=== PATIENT | male | born 2000 | race Caucasian/White ===

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

== ENCOUNTER 2020-07-15 18:52 | Emergency (ER) | payer MEDICAID, SELFPAY ==
[2019-11-20 08:56] VITALS: BMI 21.9
[2020-07-15 18:54] VITALS: BP 116/77; PULSE 101; RESP 16; TEMP 36.9; O2SAT 97; BMI 22.6
--- NOTE | 2020-07-15 20:11 | ED.DCSUM_ITS ---
- ER Visit Summary Date of Service: 07/15/20 Chief Complaint: Planing of burning to his tongue after eating spicy potato chips History of Present Illness: The patient is a 19 M history of hypoenhancement diabetes and asthma. Patient states he ate 2 bags of very hot potato chips yesterday and he burned his tongue is complaining of pain. Physical Examination: Well-appearing 8-year-old no acute distress vital signs stable afebrile. H EENT exam mild irritation right side of his tongue. Neck nontender no lymphadenopathy. No trouble swallowing or breathing. Lungs clear to auscultation. Heart regular rhythm. Abdomen soft nontender. Remedies moves all 4. Test Results: None Emergency Department Course and Treatment: Irritation secondary to spicy chips. Treatment Plan: Rinse his mouth out well with plain water. Gly-Oxide [id number]-exoetgh. Disposition: Discharge Impression: Tongue irritation and pain secondary to spicy chips Strain type 1 diabetes This note was generated with [employer] dictation software. It may contain incorrect words, spelling, and punctuation that were not noted in review of the chart prior to signing ED Disposition - Plan for ED Patient: Referrals: Tori Butler MD [Primary Care Provider] -
--- NOTE | 2020-07-15 20:13 | ED.DEP ---
ED Disposition - Plan for ED Patient: Disposition: Home or Assisted Living Referrals: Tori Butler MD [Primary Care Provider] - 1 Week if not improving Additional Instructions: Wash her mouth out thoroughly next several days with plain water. Get [id number] Gly-Oxide which is a mouth rinse that will numb your tongue. Follow-up if not improving
[2020-07-15 20:28] VITALS: RESP 16
== END 2020-07-15 20:28 | disposition home or self-care (01) ==
PROVIDERS: Emergency Provider Emergency Medicine; PCP Pediatrics
DX: K14.6 Glossodynia (principal); E10.9 Type 1 diabetes mellitus without complications; J45.909 Unspecified asthma, uncomplicated; Z79.4 Long term (current) use of insulin
CPT/HCPCS: 99282

== ENCOUNTER → 2020-09-06 14:15 | Outpatient (CLI) | payer MEDICAID, SELFPAY ==
--- NOTE | 2020-09-06 14:18 | RAD_ITS ---
STUDY: X-RAY - RIGHT KNEE REASON FOR EXAM: Male, 19 years old. Right knee pain, hx of knee surg at age 11 TECHNIQUE: 4 view(s) of the knee. COMPARISON: Comparison is made with prior study dated 03/25/2017. FINDINGS: Normal visualized distal femur. Normal visualized proximal tibia and fibula. Normal proximal tibiofibular articulation. Normal medial femorotibial compartment. Normal lateral femorotibial compartment. Normal patellofemoral articulation. Small joint effusion. RAD/Knee 4 or More Views IMPRESSION: Small joint effusion. Electronically Signed: Willy Callahan, at 14:41 EDT , Service support ,
== END ==
PROVIDERS: PCP Pediatrics; Referring Provider Pediatrics; Visit Provider Pediatrics
DX: M25.561 Pain in right knee (principal)
CPT/HCPCS: 73564

== ENCOUNTER 2020-09-21 20:31 | Emergency (ER) | payer MEDICAID, SELFPAY ==
[2020-09-10 13:53] VITALS: BMI 24.6
[2020-09-21 20:34] VITALS: BP 113/65; PULSE 122; RESP 15; TEMP 36.4; O2SAT 99; BMI 24.5
--- NOTE | 2020-09-21 21:21 | EKG12_ITS ---
Test Reason : DYSRHYTHMIA Blood Pressure : / mmHG Vent. Rate : 101 BPM Atrial Rate : 101 BPM P-R Int : 124 ms QRS Dur : 090 ms QT Int : 344 ms P-R-T Axes : 047 077 038 degrees QTc Int : 446 ms Sinus tachycardia Otherwise normal ECG Confirmed by SHERMAN CASTILLO, KEVIN ([id number]), technical editor SOURAV MENDEZ ([id number]) on 09/27/2020 1:01:50 PM Referred By: CL Confirmed By:SUSY WHITAKER MD
--- NOTE | 2020-09-21 21:26 | ED.DCSUM_ITS ---
History of Present Illness Chief Complaint: Edema Informant: Patient Narrative: 19-year-old male with past medical history of type 1 diabetes presents with lower extremity swelling. States has been present over the past 2 days. Worsening today. States that he is experienced this before in the past after working at [employer]. Denies any fever, chills, shortness of breath, chest pain, nausea, vomiting, abdominal pain. has been taking his insulin as prescribed. Past Medical History - Allergies and Home Meds Allergies/Adverse Reactions: Allergies No Known Allergies Allergy (Verified 09/21/20 20:37) Primary Care Physician: Tori Butler MD [Primary Care Provider] - Prior records reviewed: Yes Past Medical History: - - DM1 Surgical History: - - Right knee surgery. Lives: With Family Smoking Status: Never smoker Alcohol: None Drugs: None - Family History Maternal Family History: Family History (Last Reviewed 09/10/20 @ 13:53 by Pattie Morgan) Other Asthma CVA (cerebral vascular accident) Diabetes Hypertension Thyroid disorder Family History: Reports: - - Patient with no market maternal or paternal family history including heart disease, diabetes, cancer. Paternal Family History: Family History (Last Reviewed 09/10/20 @ 13:53 by Pattie Morgan) Other Asthma CVA (cerebral vascular accident) Diabetes Hypertension Thyroid disorder Family History: Reports: - - Patient with no market maternal or paternal family history including heart disease, diabetes, cancer. Review of Systems General: Denies: Chills, Fever, Sweats Eyes: Denies: Visual changes - bilaterally, Diplopia ENT: Denies: Rhinorrhea, Sore throat Cardiovascular: Denies: Chest pain, Palpitations Respiratory: Denies: Dyspnea, Cough, Dyspnea on exertion Gastrointestinal: Denies: Abdominal pain, Nausea, Vomiting, Diarrhea, Melena, Hematochezia Genitourinary: Denies: Dysuria, Hematuria, Frequency Musculoskeletal: Reports: Swelling. Denies: Back pain, Extremity Pain Skin: Denies: Rash, Wounds Neurological: Denies: Headache, Weakness, Numbness Physical Exam Vital Signs/Narrative: Vital Signs Temp Pulse Resp BP Pulse Ox 09/21/20 20:34 97.6 F L 122 H 15 113/65 99 General: Well nourished, Well developed, No Acute Distress Head: Normocephalic, Atraumatic Eyes: Perrl, EOMI ENT: Moist mucous membranes, No rhinorrhea Neck: Supple, Nontender Cardiovascular: Regular rate, Regular rhythm, No murmurs Respiratory: No distress, CTA bilaterally, Chest nontender Abdomen: Soft, Nontender, Nondistended, Normal bowel sounds Back: Nontender, Normal Inspection Extremities: Nontender, - - Bilateral lower extremity edema. Skin: Normal color, No rash Neurological: Alert, Oriented x3, Cranial nerves II-XII grossly intact, Normal Strength, Normal Sensation Psychological: Normal affect, Normal Mood Diagnostic/Tx/Re-eval Chest X-Ray - ED: 1 View, Read by ED Physician, Normal Clinical Impression(s) from Imaging Studies Chest X-Ray 09/21/20 21:40 IMPRESSION: No acute cardiopulmonary process. Electronically Signed: Concepcion Barroso MD at 21:56 EST Tel , Service support , Laboratory Data 09/21/20 09/21/20 09/21/20 21:33 21:33 23:32 WBC 6.3 RBC 4.76 Hgb 14.3 Hct 38.3 L MCV 80.5 MCH 30.0 MCHC 37.3 H RDW Std Deviation 32.5 L RDW Coeff of Rabia 11.1 L Plt Count 322 MPV 9.5 Immature Gran % (Auto) 0.500 Neut % (Auto) 51.8 Lymph % (Auto) 33.3 [place] % (Auto) 10.9 H Eos % (Auto) 2.5 Baso % (Auto) 1.0 Absolute Neuts (auto) 3.3 Absolute Lymphs (auto) 2.10 Nucleated RBC % 0 Sodium 127 L Potassium 3.5 Chloride 89 L Carbon Dioxide 27.0 Anion Gap 11 BUN 17 Creatinine 1.09 Estim Creat Clear Calc 123.19 Est GFR (MDRD) Af Amer 111 Est GFR (MDRD) Non-Af 92 BUN/Creatinine Ratio 15.6 Glucose 522 H* Calcium 9.7 Total Bilirubin 1.40 H AST 34 ALT 56 Alkaline Phosphatase 92 Total Protein 7.3 Albumin 4.3 Globulin 3.0 Albumin/Globulin Ratio 1.4 POC Glucose 384 H - Rhythm Strip Rhythm Strip: Sinus Tach Rate: 101 Ectopy: None - EKG Initial EKG Interpretation: Sinus Tachycardia - Is tachycardia at 101 bpm. [place] interval of 124 ms. QTC of 446 ms. No evidence of ST elevation or depression at this time. - Medical Decision Making Appears well and nontoxic. Bilateral equal lower extremity edema. Strong palpable pulses. Well perfused. Carlos wrap was placed on the bilateral legs and patient will be advised on elevating his legs. Basic lab work was done given the patient's history of type 1 diabetes which shows a significant hyperglycemia above 500. No evidence of DKA. Patient was given 1 L of normal saline as well as 10 units of subcutaneous insulin. Patient on recheck has a blood glucose of 384. Patient is due to take more insulin when he returns home. 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 Asked to return for new or worsening symptoms. Patient agreeable and discharged home in stable condition. Impression: 1. Lower extremity edema 2. Hyperglycemia ED Disposition - Plan for ED Patient: Disposition: Home or Assisted Living Instructions: ED Peripheral Edema, Bilateral Referrals: Tori Butler MD [Primary Care Provider] - 1 Day
--- NOTE | 2020-09-21 21:40 | RAD_ITS ---
STUDY: X-RAY CHEST REASON FOR EXAM: Male, 19 years old. PT C/O BILAT LOWER EXTREMITY EDEMA. REPORTS HE WAS ON HIS FEET ALL DAY AT WORK . TECHNIQUE: Single frontal view of the chest. COMPARISON: 11/12/2019 FINDINGS: The lungs are clear and expanded. There is no demonstrated pleural abnormality. Normal size heart. Normal mediastinum and rudi. Normal visualized pulmonary arteries. Normal visualized aortic arch and descending thoracic aorta. Normal visualized thoracic spine. Normal visualized ribs, clavicles, and shoulders. There is no demonstrated abnormality of the visualized soft tissue structures of the upper abdomen. RAD/Chest 1 View (Portable) IMPRESSION: No acute cardiopulmonary process. Electronically Signed: Concepcion Barroso MD at 21:56 EST Tel , Service support ,
[2020-09-21 21:43] LABS: Absolute Neutrophil Count 3.3 X10^3/uL (2.0-7.7); Basophil# 0.06 X10^3/uL; Eosinophil# 0.16 X10^3/uL; Eosinophils% 2.5 % (0-5); Hematocrit 38.3 % (40-54); Hemoglobin 14.3 g/dL (13.0-16.5); Lymphocyte % 33.3 % (19-41); Mean Corp Hgb Conc 37.3 g/dL (32-36); Mean Corpuscular Volume 80.5 fL (80-94); Mean Platelet Vol. 9.5 fl (6.2-12.0); Monocyte# 0.69 X10^3/uL; Monocyte% 10.9 % (0-10); NRBC Flagged by Analyzer 0 % (0-5); Neutrophil # 3.27 X10^3/uL (2.7-7.7); Neutrophil % 51.8 % (47-70); Platelet Count 322 K/mm3 (150-450); RBC Distribution Width CV 11.1 % (11.6-14.6); RBC Distribution Width SD 32.5 fl (35.1-43.9); Red Blood Count 4.76 M/mm3 (4.6-6.2); White Blood Count 6.3 K/mm3 (4.4-11.0)
[2020-09-21 22:08] LABS: ALB/GLOB Ratio 1.4 RATIO (0.9-2.4); AST(SGOT) 34 U/L (15-37); Alanine Aminotransfer ALT/SGPT 56 U/L (16-61); Albumin, Serum 4.3 g/dL (3.2-5.0); Alkaline Phosphatase 92 U/L (45-117); Anion Gap 11 (5-15); BUN 17 mg/dL (7-18); BUN/Creat Ratio 15.6 RATIO (10-20); Calcium,Total 9.7 mg/dL (8.5-10.1); Chloride 89 mmol/L (98-107); Creatinine, Serum 1.09 mg/dL (0.70-1.30); EST Glomerular Filtration Rate 92 mL/min (>60); Est Glom Filt Rate - Afr Amer 111 mL/min (>60); Estimated Creatinine Clearance 123.19 ml/min; Glucose 522 mg/dL (74-106); Potassium 3.5 mmol/L (3.5-5.1); Protein, Total 7.3 g/dL (6.4-8.2); Sodium Level 127 mmol/L (136-145)
[2020-09-21] MEDS: 0.9% Normal Saline 1,000 ML 999 ML IV (22:27)
[2020-09-21] MEDS: Insulin Human 75/25 Kwickpen 10 UNIT SC (22:37)
[2020-09-21 22:59] VITALS: BP 127/57; PULSE 98; RESP 16
[2020-09-21 23:36] LABS: Bedside Glucose 384 mg/dL (70-110)
== END 2020-09-21 23:48 | disposition home or self-care (01) ==
PROVIDERS: Emergency Provider Emergency Medicine; PCP Pediatrics
DX: M79.89 Other specified soft tissue disorders (principal); E10.65 Type 1 diabetes mellitus with hyperglycemia; Z79.4 Long term (current) use of insulin
CPT/HCPCS: 71045; 80053; 82962; 85025; 93005; 99283

== ENCOUNTER 2020-10-13 09:07 | Emergency (ER) | payer MEDICAID, SELFPAY ==
[2020-10-13 09:08] VITALS: BP 127/69; PULSE 98; RESP 15; TEMP 36.3; O2SAT 100; BMI 18.4
--- NOTE | 2020-10-13 09:18 | RAD_ITS ---
STUDY: X-RAY - RIGHT KNEE REASON FOR EXAM: Male, 19 years old. Right knee gave out, pain. TECHNIQUE: 4 view(s) of the knee. COMPARISON: Comparison is made with prior study dated 09/06/2020. FINDINGS: Normal visualized distal femur. Normal visualized proximal tibia and fibula. Normal proximal tibiofibular articulation. Normal medial femorotibial compartment. Normal lateral femorotibial compartment. Normal patellofemoral articulation. Small joint effusion. RAD/Knee 4 or More Views IMPRESSION: Small joint effusion. Electronically Signed: Willy Callahan, at 10:07 EST , Service support ,
--- NOTE | 2020-10-13 09:29 | ED.VISSUMM ---
- ER Visit Summary Date of Service: 10/13/20 Chief Complaint: Right knee pain History of Present Illness: The patient is a 19 M who reports that he was at work carrying something heavy when his right knee gave out and he hit it against the fire. He did fall. He denies other injuries. Reports he showed problems with his knee in the past. Patient reports he is a sharp pain is 5-10 with walking 4-10 at rest. Is not taken anything for pain. He does not want to do this is Workmen's Compensation. Physical Examination: Vitals: Stable. Afebrile. Neck: No vertebral tenderness. Full ROM without difficulty. Cleared by NEXUS criteria. Back: No vertebral tenderness. General: A&O x 3. NAD. Cardiovascular exam: Regular rate and rhythm, no murmur, rub or gallop. Respiratory exam: Chest nontender. No crepitus. Clear to auscultation bilaterally. No wheezes or stridor. Abdominal exam: Soft, nontender, nondistended, normal bowel sounds. No pain in RUQ or LUQ specifically. No peritoneal signs. Extremity: The medial side of his right knee just distal to the joint line there is moderate tenderness palpation and erythema. There is no joint effusion. He has no pain or ligamentous instability with anterior/posterior drawer or medial/lateral stress. He is neurovascular intact distal to this. Test Results: Right knee x-ray shows no acute disease Emergency Department Course and Treatment: Patient was treated with Tylenol. He is a type I diabetic and I do not want to give him NSAIDs. Treatment Plan: Patient will be discharged with symptomatic care. Use Tylenol and ice the area. Follow-up his primary care physician 1 week if not improving. Return to the emergency department for any worsening symptoms. Disposition: To home in improved and stable condition. Impression: 1. Right knee pain, acute. This note was generated with [employer] dictation software. It may contain incorrect words, spelling, and punctuation that were not noted in review of the chart prior to signing ED Disposition - Plan for ED Patient: Instructions: ED Knee Pain of Uncertain Cause Referrals: Tori Butler MD [Primary Care Provider] - 1 Week if not improving
[2020-10-13] MEDS: Acetaminophen 500 MG Tablet 1000 MG PO (10:15)
== END 2020-10-13 10:38 | disposition home or self-care (01) ==
LOC: ED 10:32
PROVIDERS: Emergency Provider Emergency Medicine; PCP Pediatrics
DX: M25.561 Pain in right knee (principal)
CPT/HCPCS: 73564; 99283

== ENCOUNTER → 2020-10-18 09:12 | Outpatient (CLI) | payer MEDICAID, SELFPAY ==
[2020-10-18 08:37] VITALS: BMI 22.5
[2020-10-18 09:13] LABS: Bacteria 0 SEEN /hpf (None Seen); Mucous, Urine 0 SEEN /hpf (<or=2+); Red Blood Cells-Urine 0 SEEN /hpf (0-5); Squamous Epithelial Cells - UA 0 SEEN /hpf (0-5); White Blood Cells 0 SEEN /hpf (0-5)
[2020-10-18 12:25] LABS: Color, Urine Yellow (Yellow); Glucose, Dipstick 1000 mg/dl (Normal); Leukocyte Esterase-Dipstick Negative /ul (Negative); Nitrite-Dipstick Negative (Negative); Occult Blood-Urine Negative /ul (Negative); Protein-Dipstick Negative (Negative); Urine Bilirubin Dipstick Negative (Negative); Urine Clarity Clear (Clear); Urine Urobilinogen Normal (Normal)
[2020-10-18 13:12] LABS: Ketone-Dipstick 150 mg/dl (Negative)
== END ==
PROVIDERS: Visit Provider Internal Medicine Endocrinology, Diabetes & Metabolism
DX: R32 Unspecified urinary incontinence (principal)
CPT/HCPCS: 81001; 87086

== ENCOUNTER 2020-10-19 18:11 | Emergency (ER) | payer MEDICAID, SELFPAY ==
[2020-10-18 08:37] VITALS: BMI 22.5
[2020-10-19 18:11] VITALS: BP 107/82; PULSE 119; RESP 20; TEMP 35.8; BMI 22.1
--- NOTE | 2020-10-19 19:14 | EKG12_ITS ---
Test Reason : WEIGHT LOSS Blood Pressure : / mmHG Vent. Rate : 111 BPM Atrial Rate : 111 BPM P-R Int : 120 ms QRS Dur : 088 ms QT Int : 362 ms P-R-T Axes : 050 089 038 degrees QTc Int : 492 ms Sinus tachycardia Lateral infarct , age undetermined Abnormal ECG Confirmed by SHERMAN CASTILLO, KEVIN ([id number]), content editor SOURAV MENDEZ ([id number]) on 11/01/2020 8:34:40 AM Referred By: HARINDER Confirmed By:SUSY WHITAKER MD
[2020-10-19 19:16] LABS: Bedside Glucose > 500 mg/dL (70-110)
--- NOTE | 2020-10-19 19:18 | ED.VIS.GEN ---
History of Present Illness Chief Complaint: Nausea/Vomiting Informant: Patient Narrative: 10-year-old male presents with chief complaint of nausea/vomiting. He states he is lost 15 pounds this week. He states sometimes he can hold food down however he just does not have the feeling that he wants to eat. He states that his blood sugar has been running in 150s at home. He says he is a type I diabetic and does take his insulin but cannot recall the name of the insulins he uses. He is not had a fever or chills. He is not had a cough, shortness of breath, chest pain, diarrhea, constipation. He has no abdominal pain. - Past Medical History (1) Diabetes Status: Chronic (2) History of type 1 diabetes mellitus Status: Chronic (3) DKA, type 1 Status: Chronic (4) Asthma Status: Chronic (5) GERD (gastroesophageal reflux disease) Status: Chronic Past Medical History - Allergies and Home Meds Allergies/Adverse Reactions: Allergies No Known Allergies Allergy (Verified 10/19/20 20:07) Primary Care Physician: Tori Butler MD [Primary Care Provider] - Prior records reviewed: Yes Past Medical History: - - Reviewed in problem list Surgical History: noncontributory, - - Right knee surgery. Lives: Alone Smoking Status: Never smoker - Family History Maternal Family History: Family History (Last Reviewed 10/18/20 @ 09:[address] Lauro Galindo MD) Other Asthma CVA (cerebral vascular accident) Diabetes Hypertension Thyroid disorder Family History: Reports: - - Patient with no market maternal or paternal family history including heart disease, diabetes, cancer. Paternal Family History: Family History (Last Reviewed 10/18/20 @ 09:[address] Lauro Galindo MD) Other Asthma CVA (cerebral vascular accident) Diabetes Hypertension Thyroid disorder Family History: Reports: - - Patient with no market maternal or paternal family history including heart disease, diabetes, cancer. Review of Systems General: Denies: Chills, Fever, Sweats Eyes: Denies: Visual changes - bilaterally, Diplopia ENT: Denies: Rhinorrhea, Sore throat Cardiovascular: Denies: Chest pain, Palpitations Respiratory: Denies: Dyspnea, Cough, Dyspnea on exertion Gastrointestinal: Reports: Nausea, Vomiting, - - Early satiety. Denies: Abdominal pain Musculoskeletal: Denies: Myalgias, Arthralgias Skin: Denies: Rash, Abscess Neurological: Denies: Headache, Weakness, Parasthesia Physical Exam Vital Signs/Narrative: Vital Signs Temp Pulse Resp BP 10/19/20 18:11 96.4 F L 119 H 20 H 107/82 H General: Unkempt, No Acute Distress Head: Normocephalic, Atraumatic Eyes: Perrl, EOMI. Negative for: Pale conjunctiva ENT: No rhinorrhea, Dry mucous membranes. Negative for: Nasal congestion Cardiovascular: Regular rate, Tachycardia Abdomen: Soft, Nontender, Nondistended Back: Nontender, Normal Inspection Skin: Normal color, No rash. Negative for: Cyanosis, Diaphoresis Neurological: Alert, Oriented x3 Psychological: Normal affect, Normal Mood Diagnostic/Tx/Re-eval Clinical Impression(s) from Imaging Studies Chest X-Ray 10/19/20 20:40 IMPRESSION: No acute cardiopulmonary process. Electronically Signed: Concepcion Barroso MD at 21:12 EST Tel , Service support , Laboratory Data 10/19/20 10/19/20 10/19/20 19:10 19:30 19:30 WBC RBC Hgb Hct MCV MCH MCHC RDW Std Deviation RDW Coeff of Rabia Plt Count MPV Immature Gran % (Auto) Neut % (Auto) Lymph % (Auto) [place] % (Auto) Eos % (Auto) Baso % (Auto) Absolute Neuts (auto) Absolute Lymphs (auto) Nucleated RBC % Specimen Type Sample Site VBG pH VBG pO2 VBG HCO3 VBG Total CO2 VBG O2 Sat (Calc) VBG Base Excess POC Mix VBG pCO2 Pt Tmp O2 Delivery Device Sodium 128 L Potassium 3.5 Chloride 94 L Carbon Dioxide 18.0 L Anion Gap 16 H BUN 10 Creatinine 1.13 Estim Creat Clear Calc 112.88 Est GFR (MDRD) Af Amer 107 Est GFR (MDRD) Non-Af 88 BUN/Creatinine Ratio 8.8 L Glucose 672 H* Lactic Acid Calcium 8.1 L Magnesium 1.8 Total Bilirubin 1.20 H AST 26 ALT 42 Alkaline Phosphatase 88 Total Protein 6.8 Albumin 3.8 Globulin 3.0 Albumin/Globulin Ratio 1.3 Urine Color Urine Clarity Urine pH Ur Specific [place] Urine Protein Urine Glucose (UA) Urine Ketones Urine Occult Blood Urine Nitrite Urine Bilirubin Urine Urobilinogen Ur Leukocyte Esterase Urine RBC Urine WBC Ur Squamous Epith Cells Urine Bacteria Urine Mucus Acetone Level LARGE H POC Glucose > 500 H* 10/19/20 10/19/20 10/19/20 19:30 19:30 19:55 WBC 2.6 L RBC 4.56 L Hgb 14.0 Hct 37.7 L MCV 82.7 MCH 30.7 MCHC 37.1 H RDW Std Deviation 35.9 RDW Coeff of Rabia 11.9 Plt Count 262 MPV 9.8 Immature Gran % (Auto) 0.800 Neut % (Auto) 50.7 Lymph % (Auto) 31.2 [place] % (Auto) 13.8 H Eos % (Auto) 2.7 Baso % (Auto) 0.8 Absolute Neuts (auto) 1.3 L Absolute Lymphs (auto) 0.81 L Nucleated RBC % 0 Specimen Type MARILYNN Sample Site R Brach VBG pH 7.29 L VBG pO2 118 H VBG HCO3 16 L VBG Total CO2 17 L VBG O2 Sat (Calc) 98 H VBG Base Excess -10 L POC Mix VBG pCO2 Pt Tmp 33.8 L O2 Delivery Device Room Air Sodium Potassium Chloride Carbon Dioxide Anion Gap BUN Creatinine Estim Creat Clear Calc Est GFR (MDRD) Af Amer Est GFR (MDRD) Non-Af BUN/Creatinine Ratio Glucose Lactic Acid 0.6 Calcium Magnesium Total Bilirubin AST ALT Alkaline Phosphatase Total Protein Albumin Globulin Albumin/Globulin Ratio Urine Color Urine Clarity Urine pH Ur Specific [place] Urine Protein Urine Glucose (UA) Urine Ketones Urine Occult Blood Urine Nitrite Urine Bilirubin Urine Urobilinogen Ur Leukocyte Esterase Urine RBC Urine WBC Ur Squamous Epith Cells Urine Bacteria Urine Mucus Acetone Level POC Glucose 10/19/20 10/19/20 20:10 22:24 WBC RBC Hgb Hct MCV MCH MCHC RDW Std Deviation RDW Coeff of Rabia Plt Count MPV Immature Gran % (Auto) Neut % (Auto) Lymph % (Auto) [place] % (Auto) Eos % (Auto) Baso % (Auto) Absolute Neuts (auto) Absolute Lymphs (auto) Nucleated RBC % Specimen Type Sample Site VBG pH VBG pO2 VBG HCO3 VBG Total CO2 VBG O2 Sat (Calc) VBG Base Excess POC Mix VBG pCO2 Pt Tmp O2 Delivery Device Sodium Potassium Chloride Carbon Dioxide Anion Gap BUN Creatinine Estim Creat Clear Calc Est GFR (MDRD) Af Amer Est GFR (MDRD) Non-Af BUN/Creatinine Ratio Glucose Lactic Acid Calcium Magnesium Total Bilirubin AST ALT Alkaline Phosphatase Total Protein Albumin Globulin Albumin/Globulin Ratio Urine Color Yellow Urine Clarity Sl. Cloudy Urine pH 6.5 Ur Specific [place] 1.010 Urine Protein Negative Urine Glucose (UA) 1000 H Urine Ketones 150 H Urine Occult Blood Negative Urine Nitrite Negative Urine Bilirubin Negative Urine Urobilinogen Normal Ur Leukocyte Esterase Negative Urine RBC 0 SEEN Urine WBC 0 SEEN Ur Squamous Epith Cells 0-5 SEEN Urine Bacteria 0 SEEN Urine Mucus 0 SEEN Acetone Level POC Glucose 476 H* - Rhythm Strip Rhythm Strip: Sinus Rhythm Rate: 111 - EKG Initial EKG Interpretation: No Acute Injury Pattern, Sinus Tachycardia - Medical Decision Making 19-year-old male with history of type 1 diabetes and medical noncompliance presenting with weight loss and hyperglycemia. He states he lost 15 pounds this week. He has no areas of pain. Chest x-ray is read by myself and radiologist as negative for acute process. Urinalysis is negative. Patient's blood work shows that he is hyperglycemic at over 600, but his anion gap is only 1 above normal. His VBG shows that he is only slightly acidotic. Is patient was treated with Humalog in the ED. He was given 2 L of IV fluids. He is leukopenic and lymphopenic but has no symptoms of Covid?19 a respiratory illness. I discussed the findings with the patient who feels a lot better after being hydrated. We discussed giving him insulin here and he could manage his insulin at home as well. He does state that he has medication at home he has been noncompliant. He states he does not want to stay at the hospital and understands when he needs return. Impression: 1. Hyperglycemia ED Disposition - Plan for ED Patient: Disposition: Home or Assisted Living Instructions: ED Diabetic Hyperglycemia, ED Vomiting (Adult) Prescriptions: Ondansetron [Zofran Odt] 4 mg PO Q8H PRN PRN #10 tab PRN Reason: Nausea Prescription Printed Referrals: Tori Butler MD [Primary Care Provider] -
[2020-10-19] MEDS: 0.9% Normal Saline 1,000 ML 999 ML IV ×2 (19:30→21:16)
[2020-10-19 19:44] LABS: Absolute Lymphocyte Count 0.81 X10^3/uL (0.83-4.51); Absolute Neutrophil Count 1.3 X10^3/uL (2.0-7.7); Basophil# 0.02 X10^3/uL; Basophil% 0.8 % (0-1); Eosinophil# 0.07 X10^3/uL; Eosinophils% 2.7 % (0-5); Hematocrit 37.7 % (40-54); Lymphocyte # 0.81 X10^3/ul (4.0); Lymphocyte % 31.2 % (19-41); Mean Corp Hgb Conc 37.1 g/dL (32-36); Mean Corpuscular Hgb 30.7 pg (27.0-32.0); Mean Corpuscular Volume 82.7 fL (80-94); Mean Platelet Vol. 9.8 fl (6.2-12.0); Monocyte# 0.36 X10^3/uL; Monocyte% 13.8 % (0-10); NRBC Flagged by Analyzer 0 % (0-5); Neutrophil # 1.32 X10^3/uL (2.7-7.7); Neutrophil % 50.7 % (47-70); Platelet Count 262 K/mm3 (150-450); RBC Distribution Width CV 11.9 % (11.6-14.6); RBC Distribution Width SD 35.9 fl (35.1-43.9); Red Blood Count 4.56 M/mm3 (4.6-6.2); White Blood Count 2.6 K/mm3 (4.4-11.0)
[2020-10-19 20:00] LABS: Blood Gas Specimen Type VEN; O2 Delivery Device Room Air; SITE R Brach; VBG BASE EXCESS -10 mmol/L (-1.0-3.5); VBG Bicarbonate 16 mmol/L (22-26); VBG PO2 118 mmHg (25-40); VBG SO2 98 % (50-70); VBG TCO2 17 mmol/L (23-33); VBG pCO2 33.8 mmHg (41-51); VBG pH 7.29 (7.32-7.42)
[2020-10-19] MEDS: Ondansetron 4 MG/2 ML Vial IV (20:05)
[2020-10-19 20:06] VITALS: BP 124/7; PULSE 102; RESP 20; O2SAT 100
[2020-10-19 20:20] LABS: Lactic Acid 0.6 mmol/L (0.4-1.9)
--- NOTE | 2020-10-19 20:40 | RAD_ITS ---
STUDY: X-RAY CHEST REASON FOR EXAM: Male, 19 years old. weight loss, nausea, vomiting TECHNIQUE: Single frontal view of the chest. COMPARISON: 09/21/2020 FINDINGS: The lungs are clear and expanded. There is no demonstrated pleural abnormality. Normal size heart. Normal mediastinum and rudi. Normal visualized pulmonary arteries. Normal visualized aortic arch and descending thoracic aorta. Normal visualized thoracic spine. Normal visualized ribs, clavicles, and shoulders. There is no demonstrated abnormality of the visualized soft tissue structures of the upper abdomen. RAD/Chest 1 View (Portable) IMPRESSION: No acute cardiopulmonary process. Electronically Signed: Concepcion Barroso MD at 21:12 EST Tel , Service support ,
[2020-10-19 20:42] LABS: Bacteria 0 SEEN /hpf (None Seen); Mucous, Urine 0 SEEN /hpf (<or=2+); Red Blood Cells-Urine 0 SEEN /hpf (0-5); White Blood Cells 0 SEEN /hpf (0-5)
[2020-10-19 20:53] LABS: Color, Urine Yellow (Yellow); Glucose, Dipstick 1000 mg/dl (Normal); Leukocyte Esterase-Dipstick Negative /ul (Negative); Nitrite-Dipstick Negative (Negative); Occult Blood-Urine Negative /ul (Negative); Protein-Dipstick Negative (Negative); Urine Bilirubin Dipstick Negative (Negative); Urine Clarity Sl. Cloudy (Clear); Urine Urobilinogen Normal (Normal); Urine pH 6.5 (5.0 - 8.0)
[2020-10-19 21:19] VITALS: BP 112/77; PULSE 96; RESP 18; O2SAT 100
[2020-10-19 21:28] LABS: ALB/GLOB Ratio 1.3 RATIO (0.9-2.4); AST(SGOT) 26 U/L (15-37); Alanine Aminotransfer ALT/SGPT 42 U/L (16-61); Albumin, Serum 3.8 g/dL (3.2-5.0); Alkaline Phosphatase 88 U/L (45-117); Anion Gap 16 (5-15); BUN 10 mg/dL (7-18); BUN/Creat Ratio 8.8 RATIO (10-20); Calcium,Total 8.1 mg/dL (8.5-10.1); Chloride 94 mmol/L (98-107); Creatinine, Serum 1.13 mg/dL (0.70-1.30); EST Glomerular Filtration Rate 88 mL/min (>60); Est Glom Filt Rate - Afr Amer 107 mL/min (>60); Estimated Creatinine Clearance 112.88 ml/min; Glucose 672 mg/dL (74-106); Magnesium 1.8 mg/dL (1.6-2.6); Potassium 3.5 mmol/L (3.5-5.1); Protein, Total 6.8 g/dL (6.4-8.2); Sodium Level 128 mmol/L (136-145)
[2020-10-19 22:10] LABS: Ketone-Dipstick 150 mg/dl (Negative)
[2020-10-19 22:17] LABS: Squamous Epithelial Cells - UA 0-5 SEEN /hpf (0-5)
[2020-10-19 22:35] LABS: Bedside Glucose 476 mg/dL (70-110)
[2020-10-19] MEDS: Insulin Lispro 100 UNIT/ML INSULN.PEN 12 UNIT SC (23:14)
[2020-10-19 23:16] VITALS: BP 118/75; PULSE 99; RESP 20; O2SAT 98
== END 2020-10-19 23:19 | disposition home or self-care (01) ==
PROVIDERS: Emergency Provider Student in an Organized Health Care Education/Training Program; PCP Pediatrics
DX: E10.65 Type 1 diabetes mellitus with hyperglycemia (principal); J45.909 Unspecified asthma, uncomplicated; K21.9 Gastro-esophageal reflux disease without esophagitis; Z79.4 Long term (current) use of insulin
CPT/HCPCS: 71045; 80053; 81001; 82009; 82803; 82962; 83605; 83735; 85025; 87040; 93005; 96361; 96374; 99284; J7030; J2405

== ENCOUNTER 2020-10-27 06:40 | Inpatient (IN) | payer MEDICAID, SELFPAY ==
[2020-10-27] VITALS (16 sets, daily range): BP systolic 103–137; BP diastolic 56–85; PULSE 81–110; RESP 13–20; TEMP 35.9–36.8; O2SAT 97–100; BMI 21.4; BMI 21.0; BMI 21.3
[2020-10-27 06:50] LABS: Bedside Glucose 450 mg/dL (70-110)
--- NOTE | 2020-10-27 06:50 | ED.VIS.GEN ---
History of Present Illness Chief Complaint: Hyperglycemia Informant: Patient Onset: Today Narrative: Patient has a history of type 1 diabetes. He states that he started to get a headache and feel dizzy this morning which is typically a sign his blood sugars getting too high. He states that he forgot to take his insulin this morning before going to work. EMS noted the patient's blood sugar to be 385 and started IV fluids. Patient denies fever or chills. He denies cough, abdominal pain. Patient was seen in the ER a week ago for elevated blood sugar which improved after 2 L of IV fluid. Patient states he is been able to manage his blood sugars well over the past week until this morning. - Past Medical History (1) Asthma Status: Chronic (2) GERD (gastroesophageal reflux disease) Status: Chronic (3) History of type 1 diabetes mellitus Status: Chronic Past Medical History - Allergies and Home Meds Allergies/Adverse Reactions: Allergies No Known Allergies Allergy (Verified 10/27/20 06:43) Primary Care Physician: Tori Butler MD [Primary Care Provider] - Surgical History: noncontributory, - - Right knee surgery. Smoking Status: Never smoker - Family History Maternal Family History: Family History (Last Reviewed 10/18/20 @ 09:[address] Lauro Galindo MD) Other Asthma CVA (cerebral vascular accident) Diabetes Hypertension Thyroid disorder Family History: Reports: - - Patient with no market maternal or paternal family history including heart disease, diabetes, cancer. Paternal Family History: Family History (Last Reviewed 10/18/20 @ 09:[address] Lauro Galindo MD) Other Asthma CVA (cerebral vascular accident) Diabetes Hypertension Thyroid disorder Family History: Reports: - - Patient with no market maternal or paternal family history including heart disease, diabetes, cancer. Review of Systems General: Denies: Chills, Fever Eyes: Denies: Visual changes - bilaterally ENT: Denies: Bilateral ear pain Cardiovascular: Denies: Chest pain Respiratory: Denies: Dyspnea, Cough Gastrointestinal: Denies: Abdominal pain Genitourinary: Denies: Dysuria Musculoskeletal: Denies: Swelling, Extremity Pain Neurological: Reports: Headache Hematologic: Denies: Easy bruising, Easy bleeding Allergy: Denies: Uticaria Physical Exam Vital Signs/Narrative: Vital Signs Temp Pulse Resp BP Pulse Ox 10/27/20 06:41 96.6 F L 104 H 16 137/85 H 100 Inital Vital Signs reviewed: Yes General: Well nourished, Well developed Head: Normocephalic ENT: Moist mucous membranes Neck: Supple Cardiovascular: Regular rate, Regular rhythm Respiratory: No distress, CTA bilaterally Abdomen: Soft, Nontender, Normal bowel sounds Extremities: Nontender Skin: Normal color Neurological: Alert, Oriented x3 Psychological: Normal affect Diagnostic/Tx/Re-eval - Medical Decision Making Patient is ordered his normal morning insulin along with a liter of IV fluid and BMP. This will be signed out to oncoming physician for final re-eval and dispo. ED Disposition - Plan for ED Patient: Referrals: Tori Butler MD [Primary Care Provider] -
[2020-10-27] MEDS: 0.9% Normal Saline 1,000 ML 1000 ML IV ×2 (06:55→07:49)
[2020-10-27] MEDS: Insulin Lispro 100 UNIT/ML INSULN.PEN 10 UNIT SC ×2 (06:55→18:35)
--- NOTE | 2020-10-27 07:36 | EKG12_ITS ---
Test Reason : HG Blood Pressure : / mmHG Vent. Rate : 093 BPM Atrial Rate : 093 BPM P-R Int : 138 ms QRS Dur : 102 ms QT Int : 398 ms P-R-T Axes : 055 077 050 degrees QTc Int : 494 ms Normal sinus rhythm Prolonged QT Abnormal ECG Confirmed by SHERMAN CASTILLO, KEVIN ([id number]), fan mail editor AYESHA VALLE ([id number]) on 11/03/2020 10:22:28 AM Referred By: JAMES Confirmed By:SUSY WHITAKER MD
[2020-10-27 07:37] LABS: Anion Gap 22 (5-15); BUN 9 mg/dL (7-18); BUN/Creat Ratio 7.7 RATIO (10-20); Calcium,Total 7.9 mg/dL (8.5-10.1); Chloride 103 mmol/L (98-107); Creatinine, Serum 1.17 mg/dL (0.70-1.30); EST Glomerular Filtration Rate 85 mL/min (>60); Est Glom Filt Rate - Afr Amer 102 mL/min (>60); Estimated Creatinine Clearance 105.86 ml/min; Glucose 421 mg/dL (74-106); Potassium 3.7 mmol/L (3.5-5.1); Sodium Level 132 mmol/L (136-145)
[2020-10-27 07:58] LABS: Absolute Lymphocyte Count 1.39 X10^3/uL (0.83-4.51); Absolute Neutrophil Count 4.9 X10^3/uL (2.0-7.7); Basophil# 0.06 X10^3/uL; Basophil% 0.9 % (0-1); Eosinophil# 0.05 X10^3/uL; Eosinophils% 0.7 % (0-5); Hematocrit 41.9 % (40-54); Hemoglobin 14.9 g/dL (13.0-16.5); Lymphocyte # 1.39 X10^3/ul (4.0); Lymphocyte % 19.8 % (19-41); Mean Corp Hgb Conc 35.6 g/dL (32-36); Mean Corpuscular Hgb 31.3 pg (27.0-32.0); Mean Platelet Vol. 9.8 fl (6.2-12.0); Monocyte# 0.46 X10^3/uL; Monocyte% 6.5 % (0-10); NRBC Flagged by Analyzer 0 % (0-5); Neutrophil # 4.89 X10^3/uL (2.7-7.7); Neutrophil % 69.5 % (47-70); Platelet Count 381 K/mm3 (150-450); RBC Distribution Width CV 13.2 % (11.6-14.6); RBC Distribution Width SD 42.2 fl (35.1-43.9); Red Blood Count 4.76 M/mm3 (4.6-6.2)
[2020-10-27 08:44] LABS: Mucous, Urine 0 SEEN /hpf (<or=2+); Red Blood Cells-Urine 0 SEEN /hpf (0-5); Squamous Epithelial Cells - UA 0 SEEN /hpf (0-5); White Blood Cells 0 SEEN /hpf (0-5)
[2020-10-27 08:49] LABS: Color, Urine Straw (Yellow); Glucose, Dipstick 1000 mg/dl (Normal); Leukocyte Esterase-Dipstick Negative /ul (Negative); Nitrite-Dipstick Negative (Negative); Occult Blood-Urine 25 /ul (Negative); Protein-Dipstick 100 mg/dl (Negative); Urine Bilirubin Dipstick Negative (Negative); Urine Clarity Clear (Clear); Urine Urobilinogen Normal (Normal)
[2020-10-27 08:51] LABS: Ketone-Dipstick 150 mg/dl (Negative)
[2020-10-27 08:55] LABS: Bedside Glucose 294 mg/dL (70-110)
[2020-10-27 08:57] LABS: Bacteria RARE /hpf (None Seen)
--- NOTE | 2020-10-27 09:14 | NURSING ---
HOSPITALIST PAGED DR IRWIN PAGED AND RETURNED CALL
--- NOTE | 2020-10-27 09:16 | ED.VISSUMM ---
- ER Visit Summary Date of Service: 10/27/20 Chief Complaint: [] History of Present Illness: The patient is a 19 M [] Physical Examination: [] Test Results: [] Emergency Department Course and Treatment: [] Treatment Plan: [] Disposition: [] Impression: [] This note was generated with [employer]™ Interactive dictation software. It may contain incorrect words, spelling, and punctuation that were not noted in review of the chart prior to signing ED Disposition - Plan for ED Patient: Disposition: Acute Care Hospital [facility] Diagnosis: Diabetic ketoacidosis associated with type 1 diabetes mellitus Referrals: Tori Butler MD [Primary Care Provider] -
[2020-10-27 09:20] LABS: Blood Gas Specimen Type VEN; VBG BASE EXCESS -24 mmol/L (-1.0-3.5); VBG Bicarbonate 7 mmol/L (22-26); VBG PO2 114 mmHg (25-40); VBG SO2 95 % (50-70); VBG TCO2 8 mmol/L (23-33); VBG pCO2 29.2 mmHg (41-51)
--- NOTE | 2020-10-27 09:24 | CPS ---
Dr. Harper was notified about critical values on VBG.
--- NOTE | 2020-10-27 09:36 | HP.PCM_ITS ---
Problem List (1) Diabetic ketoacidosis associated with type 1 diabetes mellitus Status: Acute (2) Psychosocial problem Status: Chronic (3) Noncompliance with diabetes treatment Status: Chronic (4) Diabetes Status: Chronic Qualifiers: Diabetes mellitus type: type 1 Diabetes mellitus complication status: with hyperglycemia Qualified Code(s): E10.65 - Type 1 diabetes mellitus with hyperglycemia (5) History of type 1 diabetes mellitus Status: Chronic (6) DKA, type 1 Status: Chronic (7) RADHA (acute kidney injury) Status: Acute (8) Asthma Status: Chronic Qualifiers: Asthma severity: unspecified severity Asthma persistence: unspecified Asthma complication type: unspecified Qualified Code(s): J45.909 - Unspecified asthma, uncomplicated (9) GERD (gastroesophageal reflux disease) Status: Chronic Qualifiers: Esophagitis presence: esophagitis presence not specified Qualified Code(s): K21.9 - Gastro-esophageal reflux disease without esophagitis History of Present Illness Date of Admission: 10/27/20 Chief Complaint: Hyperglycemia The patient is a 19 year old M past medical history single for diabetes mellitus type 1 who presented to the emergency department with hyperglycemia. Patient states he had forgotten to take his medication. Blood glucose in the ED was apparently greater than 400. Subsequent evaluation did demonstrate presence of diabetic ketoacidosis. Treatment initiated in the ED with IV fluids systemic insulin and admitted to intensive care unit for further management. On further questioning patient denied any nausea no fever no chills. No abdominal pain Past Medical History Past Medical History (Chronic Problems): Chronic Problems (Last Reviewed 10/18/20 @ 09:[address] Lauro Galindo MD) Psychosocial problem (Chronic) Noncompliance with diabetes treatment (Chronic) Diabetes (Chronic) History of type 1 diabetes mellitus (Chronic) DKA, type 1 (Chronic) Asthma (Chronic) GERD (gastroesophageal reflux disease) (Chronic) Medical History: Medical History (Last Reviewed 10/27/20 @ 11:[address] Will Mason MD) femur surgery Diabetes mellitus type 1 E10.9 Allergies No Known Allergies Allergy (Verified 10/27/20 06:43) Home Medications: Ambulatory Orders Medication Instructions Recorded Albuterol Inhaler [Ventolin Hfa] 2 puff INHALATION Q4H PRN PRN 02/15/19 Fluticasone 44 Mcg [Flovent 44 Mcg] 2 puff IH BID 11/12/19 Omeprazole 20 mg DAILY 11/12/19 flash glucose scanning reader See Rx Instructions .ROUTE 09/10/20 .MEDSUPPLY #1 ea flash glucose sensor See Rx Instructions .ROUTE 09/10/20 .MEDSUPPLY #2 ea insulin glargine 100 unit/mL (3 15 unit SC DAILY #15 ml 09/10/20 mL) subcutaneous pen insulin lispro 100 unit/mL 10 unit SC TID #15 ml 09/10/20 subcutaneous pen blood sugar diagnostic See Rx Instructions .ROUTE 09/15/20 .MEDSUPPLY #100 ea Ondansetron [Zofran Odt] 4 mg PO Q8H PRN PRN #10 tab 10/19/20 Surgical History: Surgical History (Last Reviewed 10/27/20 @ 11:[address] Will Mason MD) Hx of knee surgery Z98.890 Surgical History: noncontributory, - - Right knee surgery. Psychiatric History: No pertinent psych hx Smoking Status: Never smoker - *Family History Maternal Family History: Family History (Last Reviewed 10/27/20 @ 11:[address] Will Mason MD) Other Asthma CVA (cerebral vascular accident) Diabetes Hypertension Thyroid disorder History Items: - - Patient with no market maternal or paternal family history including heart disease, diabetes, cancer. Paternal Family History: Family History (Last Reviewed 10/27/20 @ 11:[address] Will Mason MD) Other Asthma CVA (cerebral vascular accident) Diabetes Hypertension Thyroid disorder History Items: - - Patient with no market maternal or paternal family history including heart disease, diabetes, cancer. Review of Systems Constitutional: Denies: Anorexia, Chills, Fever, Night Sweats, Weight Change HEENT: Denies: Head Aches, Sinus Congestion, Sinus Drainage Cardiovascular: Denies: Chest Pain, Orthopnea, Palpitations, Paroxysmal Noc. Dyspnea Respiratory: Denies: Cough, Shortness of breath at rest, Shortness of breath upon exertion, Sputum production Gastrointestinal: Denies: Abdominal Pain, Hematemesis, Hematochezia, Nausea, Melena, Vomiting Genitourinary: Denies: Dysuria, Frequency, Hematuria, Urgency Musculoskeletal: Denies: Joint Pain, Joint Tenderness Skin: Denies: Rash Neurological: Denies: Focal weakness, Numbness, Tingling Psychiatric: Denies: Homicidal Ideations, Suicidal Ideations Hematologic/ Lymphatic: Denies: Easy Bruising, Easy Bleeding VTE Information - Inpt Only VTE Present on Admission: No VTE Mechan Device Prophylaxis: None VTE Pharm Prophylaxis ordered?: No Reason prophylaxis not ordered:: Treatment Not Indicated Patient Problems: Active and Suspected Problems (Last Reviewed 10/18/20 @ 09:[address] Lauro Galindo MD) Diabetic ketoacidosis associated with type 1 diabetes mellitus (Acute) Objective: GENERAL: cooperative HEENT: Atraumatic; dry oral mucosa EYES; Anicteric, Normal Conjunctiva NECK; supple, normal thyroid, RESPIRATORY: Diminished to auscultation CARDIOVASCULAR: Regular S1 S2, GI: soft, normoactive bowel sounds, : No Renal angle tenderness; EXTREMITIES: No edema, no clubbing, MUSCULOSKELETAL: no muscle waisting NEURO: Awake; no lateralizing signs. SKIN: No Rash PSYCH; Flat affect - Physical Exam Vitals/I&O's: Vital Signs Temp Pulse Resp BP Pulse Ox 96.6 F L 81 17 109/71 100 10/27/20 06:41 10/27/20 09:08 10/27/20 09:08 10/27/20 09:08 10/27/20 09:08 Oxygen Delivery Method Room Air Weight: 73.7 kg Body Mass Index (BMI) 21.4 Finger Stick Blood Glucose 294 Intake and Output for Last 24 Hours 10/25/20 10/26/20 10/27/20 23:59 23:59 23:59 Intake Total 1999 Balance 1999 Laboratory Results 10/27/20 06:46: POC Glucose 450 H 10/27/20 06:56: Sodium 132 L, Potassium 3.7, Chloride 103, Carbon Dioxide 7.0 L* , Anion Gap 22 H, BUN 9, Creatinine 1.17, Estim Creat Clear Calc 105.86, Est GFR (MDRD) Af Amer 102, Est GFR (MDRD) Non-Af 85, BUN/Creatinine Ratio 7.7 L, Glucose 421 H, Calcium 7.9 L 10/27/20 06:56: WBC 7.0, RBC 4.76, Hgb 14.9, Hct 41.9, MCV 88.0, MCH 31.3, MCHC 35.6, RDW Std Deviation 42.2, RDW Coeff of Rabia 13.2, Plt Count 381, MPV 9.8, Immature Gran % (Auto) 2.600 H, Neut % (Auto) 69.5, Lymph % (Auto) 19.8, [place] % (Auto) 6.5, Eos % (Auto) 0.7, Baso % (Auto) 0.9, Absolute Neuts (auto) 4.9, Absolute Lymphs (auto) 1.39, Nucleated RBC % 0 10/27/20 06:56: Acetone Level LARGE H 10/27/20 08:38: Urine Color Straw, Urine Clarity Clear, Urine pH 5.0, Ur Specific [place] 1.020, Urine Protein 100 H, Urine Glucose (UA) 1000 H, Urine Ketones 150 H, Urine Occult Blood 25 H, Urine Nitrite Negative, Urine Bilirubin Negative, Urine Urobilinogen Normal, Ur Leukocyte Esterase Negative, Urine RBC 0 SEEN, Urine WBC 0 SEEN, Ur Squamous Epith Cells 0 SEEN, Urine Bacteria RARE, Urine Mucus 0 SEEN 10/27/20 08:52: POC Glucose 294 H 10/27/20 09:13: Specimen Type MARILYNN, VBG pH 7.00 L*, VBG pO2 114 H, VBG HCO3 7 L, VBG Total CO2 8 L, VBG O2 Sat (Calc) 95 H, VBG Base Excess -24 L, POC Mix VBG pCO2 Pt Tmp 29.2 L Current Medications Insulin Human Lispro 100 unit/ (Sodium Chloride) 100 mls @ 7.37 mls/hr CONT INF .[id number] [facility]; Protocol Stop: 10/27/20 21:19 Last Admin: 10/27/20 09:04 Dose: 7.4 unit/hr, 7.4 mls/hr Documented by: Assessment/Plan All Active Problems (Last Reviewed 10/18/20 @ 09:[address] Lauro Galindo MD) Diabetic ketoacidosis associated with type 1 diabetes mellitus (Acute) RADHA (acute kidney injury) (Acute) Patient is a 19-year-old gentleman presented with hyperglycemia assessment consistent with diabetic ketoacidosis admitted to the intensive care unit for further management 1. Diabetic ketoacidosis ?Admitted to the intensive care unit treatment initiated with aggressive IV fluid resuscitation, systemic insulin, every 4 monitoring of electrolyte and correction of electrolyte abnormalities 2. Hyponatremia ?Secondary to pseudohyponatremia from hyperglycemia do expect rapid correction with improvement in patient glucose levels 3. GERD ?Patient is on PPI did continue 4. Mild intermittent asthma ?Aerosol treatments as needed 5. DVT prophylaxis low risk ?Did encourage early ambulation
--- NOTE | 2020-10-27 09:36 | NURSING ---
ICU KITTOE DIABETIC KETACIDOSIS
--- NOTE | 2020-10-27 09:49 | NURSING ---
CV ICU 204
[2020-10-27 10:13] LABS: Anion Gap 18 (5-15); BUN 9 mg/dL (7-18); BUN/Creat Ratio 8.9 RATIO (10-20); Calcium,Total 7.7 mg/dL (8.5-10.1); Chloride 109 mmol/L (98-107); Creatinine, Serum 1.01 mg/dL (0.70-1.30); EST Glomerular Filtration Rate 100 mL/min (>60); Est Glom Filt Rate - Afr Amer 121 mL/min (>60); Estimated Creatinine Clearance 122.63 ml/min; Glucose 279 mg/dL (74-106); Potassium 3.6 mmol/L (3.5-5.1); Sodium Level 136 mmol/L (136-145)
[2020-10-27 10:30] LABS: Bedside Glucose 233 mg/dL (70-110)
[2020-10-27 10:33] LABS: Osmolality, Serum 319 mOsm/KG (275-295)
[2020-10-27 11:24] LABS: AST(SGOT) 14 U/L (15-37); Alanine Aminotransfer ALT/SGPT 32 U/L (16-61); Albumin, Serum 3.6 g/dL (3.2-5.0); Alkaline Phosphatase 91 U/L (45-117); Bilirubin, Direct 0.12 mg/dL (0.00-0.30); Globulin 3.3 g/dL (2.2-4.2); Magnesium 1.8 mg/dL (1.6-2.6); Protein, Total 6.9 g/dL (6.4-8.2)
[2020-10-27] MEDS: Potassium Chloride 10mEq/100mL 10 MEQ/100 ML IV.SOLN. 100 MEQ IV BOLUS ×4 (11:58→17:10)
[2020-10-27] MEDS: 0.9% Normal Saline 1,000 ML 999 ML IV (11:58)
[2020-10-27] MEDS: 0.9% Normal Saline 1,000 ML 250 ML IV (12:31)
[2020-10-27 13:15] LABS: Anion Gap 14 (5-15); BUN 7 mg/dL (7-18); BUN/Creat Ratio 6.7 RATIO (10-20); Calcium,Total 8.2 mg/dL (8.5-10.1); Chloride 111 mmol/L (98-107); Creatinine, Serum 1.04 mg/dL (0.70-1.30); EST Glomerular Filtration Rate 97 mL/min (>60); Est Glom Filt Rate - Afr Amer 117 mL/min (>60); Estimated Creatinine Clearance 119.09 ml/min; Glucose 140 mg/dL (74-106); Potassium 3.4 mmol/L (3.5-5.1); Sodium Level 139 mmol/L (136-145)
[2020-10-27 13:45] LABS: Bedside Glucose 154 mg/dL (70-110)
[2020-10-27 14:55] LABS: Bedside Glucose 145 mg/dL (70-110)
[2020-10-27 14:55] LABS: Bedside Glucose 181 mg/dL (70-110)
[2020-10-27] MEDS: Dext 5%-0.45% NS 1,000 ML 150 ML IV (15:00)
[2020-10-27 16:45] LABS: Bedside Glucose 137 mg/dL (70-110)
--- NOTE | 2020-10-27 16:52 | NURSING ---
Per Dr Sanchez, primary physician for patient, patient is out of DKA after one BMP and gap 14. No second BMP needed per doctor, patient is being transfered to med surge unit from icu.
--- NOTE | 2020-10-27 17:08 | NURSING ---
Handoff report given to med surge nurse. Patient transferred out from [id number] to [id number] at 17:10.
[2020-10-27 18:00] LABS: Bedside Glucose 100 mg/dL (70-110)
[2020-10-27 18:15] LABS: Bedside Glucose 94 mg/dL (70-110)
[2020-10-27 18:36] LABS: Anion Gap 12 (5-15); BUN 9 mg/dL (7-18); BUN/Creat Ratio 10.1 RATIO (10-20); Calcium,Total 8.6 mg/dL (8.5-10.1); Chloride 113 mmol/L (98-107); Creatinine, Serum 0.89 mg/dL (0.70-1.30); EST Glomerular Filtration Rate 116 mL/min (>60); Est Glom Filt Rate - Afr Amer 140 mL/min (>60); Estimated Creatinine Clearance 137.84 ml/min; Glucose 115 mg/dL (74-106); Potassium 3.7 mmol/L (3.5-5.1); Sodium Level 138 mmol/L (136-145)
[2020-10-27] MEDS: Budesonide Respules 0.5 MG/2 ML AMPUL.NEB. INHALATION (19:33)
[2020-10-27] MEDS: Insulin Lispro 100 UNIT/ML INSULN.PEN SC (21:59)
[2020-10-27 22:25] LABS: Bedside Glucose 278 mg/dL (70-110)
[2020-10-27 22:38] LABS: Anion Gap 13 (5-15); BUN 10 mg/dL (7-18); BUN/Creat Ratio 10.6 RATIO (10-20); Calcium,Total 8.1 mg/dL (8.5-10.1); Chloride 109 mmol/L (98-107); Creatinine, Serum 0.94 mg/dL (0.70-1.30); EST Glomerular Filtration Rate 109 mL/min (>60); Est Glom Filt Rate - Afr Amer 131 mL/min (>60); Estimated Creatinine Clearance 130.51 ml/min; Glucose 266 mg/dL (74-106); Potassium 3.9 mmol/L (3.5-5.1); Sodium Level 135 mmol/L (136-145)
[2020-10-28 01:43] LABS: Anion Gap 12 (5-15); BUN 9 mg/dL (7-18); Calcium,Total 8.4 mg/dL (8.5-10.1); Chloride 109 mmol/L (98-107); EST Glomerular Filtration Rate 114 mL/min (>60); Est Glom Filt Rate - Afr Amer 138 mL/min (>60); Estimated Creatinine Clearance 136.31 ml/min; Glucose 203 mg/dL (74-106); Potassium 3.5 mmol/L (3.5-5.1); Sodium Level 135 mmol/L (136-145)
[2020-10-28] MEDS: Insulin Lispro 100 UNIT/ML INSULN.PEN SC ×2 (03:49→09:38)
[2020-10-28 03:51] VITALS: BP 120/65; PULSE 103; RESP 16; TEMP 37; O2SAT 98
[2020-10-28 04:01] LABS: Bedside Glucose 205 mg/dL (70-110)
--- NOTE | 2020-10-28 06:19 | PCS.PANDOC ---
PANDEMIC DOCUMENTATION INITIATED: Date: 10/27/2020 Time: 954
--- NOTE | 2020-10-28 06:45 | PCS.PANDOC ---
PANDEMIC DOCUMENTATION INITIATED: Date: 10/27/2020 Time: 6347
[2020-10-28 07:15] LABS: Absolute Lymphocyte Count 0.94 X10^3/uL (0.83-4.51); Absolute Neutrophil Count 1.2 X10^3/uL (2.0-7.7); Basophil# 0.02 X10^3/uL; Basophil% 0.8 % (0-1); Eosinophil# 0.06 X10^3/uL; Eosinophils% 2.4 % (0-5); Hematocrit 35.2 % (40-54); Hemoglobin 12.6 g/dL (13.0-16.5); Lymphocyte # 0.94 X10^3/ul (4.0); Lymphocyte % 36.9 % (19-41); Mean Corp Hgb Conc 35.8 g/dL (32-36); Mean Corpuscular Hgb 30.4 pg (27.0-32.0); Mean Corpuscular Volume 84.8 fL (80-94); Mean Platelet Vol. 9.5 fl (6.2-12.0); Monocyte# 0.27 X10^3/uL; Monocyte% 10.6 % (0-10); NRBC Flagged by Analyzer 0 % (0-5); Neutrophil # 1.21 X10^3/uL (2.7-7.7); Neutrophil % 47.3 % (47-70); Platelet Count 272 K/mm3 (150-450); RBC Distribution Width CV 13.1 % (11.6-14.6); RBC Distribution Width SD 40.3 fl (35.1-43.9); Red Blood Count 4.15 M/mm3 (4.6-6.2); White Blood Count 2.6 K/mm3 (4.4-11.0)
[2020-10-28 07:28] VITALS: PULSE 88; RESP 20; O2SAT 96
[2020-10-28] MEDS: Budesonide Respules 0.5 MG/2 ML AMPUL.NEB. INHALATION (07:28)
[2020-10-28 07:40] LABS: Bedside Glucose 212 mg/dL (70-110)
[2020-10-28 07:58] LABS: Anion Gap 12 (5-15); BUN 8 mg/dL (7-18); BUN/Creat Ratio 9.7 RATIO (10-20); Calcium,Total 8.4 mg/dL (8.5-10.1); Chloride 109 mmol/L (98-107); Creatinine, Serum 0.83 mg/dL (0.70-1.30); EST Glomerular Filtration Rate 126 mL/min (>60); Est Glom Filt Rate - Afr Amer 152 mL/min (>60); Glucose 211 mg/dL (74-106); Potassium 3.5 mmol/L (3.5-5.1); Sodium Level 135 mmol/L (136-145)
--- NOTE | 2020-10-28 08:10 | DCINST_ITS ---
- Discharge Diagnoses Current Active Problems: Current Active and Chronic Problems (Last Reviewed 10/27/20 @ 11:[address] Will Mason MD) Diabetic ketoacidosis associated with type 1 diabetes mellitus (Acute) Psychosocial problem (Chronic) Noncompliance with diabetes treatment (Chronic) Diabetes (Chronic) History of type 1 diabetes mellitus (Chronic) DKA, type 1 (Chronic) RADHA (acute kidney injury) (Acute) Asthma (Chronic) GERD (gastroesophageal reflux disease) (Chronic) You will use the following diet at home:: Calorie/Carbohydrate Controlled (specify 1200, 1400, etc) - 1800 Your food should be the consistency of: Regular Discharge Activity: Return to Normal Activity Allergies/Adverse Reactions: Allergies No Known Allergies Allergy (Verified 10/27/20 06:43) Medications to take at Discharge Albuterol Inhaler [Ventolin Hfa] 2 puff INHALATION Q4H PRN PRN 02/15/19 Fluticasone 44 Mcg [Flovent 44 Mcg] 2 puff IH BID 11/12/19 Omeprazole 20 mg DAILY 11/12/19 flash glucose scanning reader See Rx Instructions .ROUTE .MEDSUPPLY #1 ea 09/10/20 flash glucose sensor See Rx Instructions .ROUTE .MEDSUPPLY #2 ea 09/10/20 insulin lispro 100 unit/mL subcutaneous pen 10 unit SC TID #15 ml 09/10/20 blood sugar diagnostic See Rx Instructions .ROUTE .MEDSUPPLY #100 ea 09/15/20 Ondansetron [Zofran Odt] 4 mg PO Q8H PRN PRN #10 tab 10/19/20 Insulin Glargine,Hum.rec.anlog [Lantus Solostar] 10 unit SC BIDCM #15 ml 10/28/20 Potassium Chloride [K-Dur] 20 meq PO BIDCM #60 tab 10/28/20 The following prescriptions were given: Potassium Chloride [K-Dur] 20 meq PO BIDCM #60 tab Transmission Status: Received by [id number] Primary Care Physician: Tori Butler MD [Primary Care Provider] - Please follow up with your Primary Care Physician in: in 1 week Test Results: Test results from this visit will be discussed in further detail at your follow- up appointment, if applicable. Please Follow Up With: Lauro Galindo MD When: in 2 weeks Proposed Discharge Date: 10/28/20
--- NOTE | 2020-10-28 08:43 | DS.PCM_ITS ---
Discharge Date and Diagnosis - Problem List Patient Problems: Active and Suspected Problems (Last Reviewed 10/27/20 @ 11:[address] Will Masno MD) Diabetic ketoacidosis associated with type 1 diabetes mellitus (Acute) RADHA (acute kidney injury) (Acute) Date of Admission: 10/27/20 Date of Discharge: 10/28/20 - Primary Discharge Diagnosis Acute Problems: Active Problems (Last Reviewed 10/27/20 @ 11:[address] Will Mason MD) Diabetic ketoacidosis associated with type 1 diabetes mellitus (Acute) RADHA (acute kidney injury) (Acute) - Secondary Discharge Diagnosis Chronic Problems: Chronic Problems (Last Reviewed 10/27/20 @ 11:[address] Will Mason MD) Psychosocial problem (Chronic) Noncompliance with diabetes treatment (Chronic) Diabetes (Chronic) History of type 1 diabetes mellitus (Chronic) DKA, type 1 (Chronic) Asthma (Chronic) GERD (gastroesophageal reflux disease) (Chronic) Hospital Course and Treatment Summary of Care Provided: Patient is a 19-year-old gentleman presented with hyperglycemia assessment consistent with diabetic ketoacidosis admitted to the intensive care unit for further management 1. Diabetic ketoacidosis ?Admitted to the intensive care unit treatment initiated with aggressive IV fluid resuscitation, systemic insulin, every 4 monitoring of electrolyte and correction of electrolyte abnormalities -10/28/2018 patient DKA resolved discharge home with adjustments in his insulin regimen 2. Hyponatremia ?Secondary to pseudohyponatremia from hyperglycemia do expect rapid correction with improvement in patient glucose levels 3. GERD ?Patient is on PPI did continue 4. Mild intermittent asthma ?Aerosol treatments as needed 5. DVT prophylaxis low risk ?Did encourage early ambulation Patient Problems: Active and Suspected Problems (Last Reviewed 10/27/20 @ 11:[address] Will Mason MD) Diabetic ketoacidosis associated with type 1 diabetes mellitus (Acute) RADHA (acute kidney injury) (Acute) - Physical Exam Vitals/I&O's: Vital Signs Temp Pulse Resp BP Pulse Ox 98.6 F 88 20 H 120/65 96 10/28/20 03:51 10/28/20 07:28 10/28/20 07:28 10/28/20 03:51 10/28/20 07:28 Oxygen Delivery Method Room Air Weight: 72.8 kg Body Mass Index (BMI) 21.3 Finger Stick Blood Glucose 137 Intake and Output for Last 24 Hours 10/26/20 10/27/20 10/28/20 23:59 23:59 23:59 Intake Total 5576.37 / 5576.37 339.58 / 339.58 Output Total 0 / 0 Balance 5576.37 / 5576.37 339.58 / 339.58 General: Alert HEENT: Atraumatic Cardiovascular: Regular rate, Regular Rhythm Psych/Mental Status: Normal Affect Laboratory Results 10/27/20 06:56: Serum Osmolality 319 H 10/27/20 08:38: Urine Color Straw, Urine Clarity Clear, Urine pH 5.0, Ur Specific [place] 1.020, Urine Protein 100 H, Urine Glucose (UA) 1000 H, Urine Ketones 150 H, Urine Occult Blood 25 H, Urine Nitrite Negative, Urine Bilirubin Negative, Urine Urobilinogen Normal, Ur Leukocyte Esterase Negative, Urine RBC 0 SEEN, Urine WBC 0 SEEN, Ur Squamous Epith Cells 0 SEEN, Urine Bacteria RARE, Urine Mucus 0 SEEN 10/27/20 08:52: POC Glucose 294 H 10/27/20 09:13: Specimen Type MARILYNN, VBG pH 7.00 L*, VBG pO2 114 H, VBG HCO3 7 L, VBG Total CO2 8 L, VBG O2 Sat (Calc) 95 H, VBG Base Excess -24 L, POC Mix VBG pCO2 Pt Tmp 29.2 L 10/27/20 09:40: Sodium 136, Potassium 3.6, Chloride 109 H, Carbon Dioxide 9.0 L* , Anion Gap 18 H, BUN 9, Creatinine 1.01, Estim Creat Clear Calc 122.63, Est GFR (MDRD) Af Amer 121, Est GFR (MDRD) Non-Af 100, BUN/Creatinine Ratio 8.9 L, Glucose 279 H, Calcium 7.7 L 10/27/20 09:40: Magnesium 1.8, Total Bilirubin 0.60, Direct Bilirubin 0.12, AST 14 L, ALT 32, Alkaline Phosphatase 91, Total Protein 6.9, Albumin 3.6, Globulin 3.3 10/27/20 10:23: POC Glucose 233 H 10/27/20 11:33: POC Glucose 181 H 10/27/20 12:25: Sodium 139, Potassium 3.4 L, Chloride 111 H, Carbon Dioxide 14.0 L, Anion Gap 14, BUN 7, Creatinine 1.04, Estim Creat Clear Calc 119.09, Est GFR (MDRD) Af Amer 117, Est GFR (MDRD) Non-Af 97, BUN/Creatinine Ratio 6.7 L, Glucose 140 H, Calcium 8.2 L 10/27/20 12:25: POC Glucose 145 H 10/27/20 13:37: POC Glucose 154 H 10/27/20 14:42: POC Glucose 137 H 10/27/20 16:31: POC Glucose 94 10/27/20 17:52: POC Glucose 100 10/27/20 18:03: Sodium 138, Potassium 3.7, Chloride 113 H, Carbon Dioxide 13.0 L , Anion Gap 12, BUN 9, Creatinine 0.89, Estim Creat Clear Calc 137.84, Est GFR (MDRD) Af Amer 140, Est GFR (MDRD) Non-Af 116, BUN/Creatinine Ratio 10.1, Glucose 115 H, Calcium 8.6 10/27/20 21:58: Sodium 135 L, Potassium 3.9, Chloride 109 H, Carbon Dioxide 13.0 L, Anion Gap 13, BUN 10, Creatinine 0.94, Estim Creat Clear Calc 130.51, Est GFR (MDRD) Af Amer 131, Est GFR (MDRD) Non-Af 109, BUN/Creatinine Ratio 10.6, Glucose 266 H, Calcium 8.1 L 10/27/20 21:58: POC Glucose 278 H 10/28/20 01:25: Sodium 135 L, Potassium 3.5, Chloride 109 H, Carbon Dioxide 14.0 L, Anion Gap 12, BUN 9, Creatinine 0.90, Estim Creat Clear Calc 136.31, Est GFR (MDRD) Af Amer 138, Est GFR (MDRD) Non-Af 114, BUN/Creatinine Ratio 10.0, Glucose 203 H, Calcium 8.4 L 10/28/20 03:48: POC Glucose 205 H 10/28/20 06:10: WBC 2.6 L, RBC 4.15 L, Hgb 12.6 L, Hct 35.2 L, MCV 84.8, MCH 30.4, MCHC 35.8, RDW Std Deviation 40.3, RDW Coeff of Rabia 13.1, Plt Count 272, MPV 9.5, Immature Gran % (Auto) 2.000 H, Neut % (Auto) 47.3, Lymph % (Auto) 36.9, [place] % (Auto) 10.6 H, Eos % (Auto) 2.4, Baso % (Auto) 0.8, Absolute Neuts (auto) 1.2 L, Absolute Lymphs (auto) 0.94, Nucleated RBC % 0 10/28/20 06:10: Sodium 135 L, Potassium 3.5, Chloride 109 H, Carbon Dioxide 14.0 L, Anion Gap 12, BUN 8, Creatinine 0.83, Estim Creat Clear Calc 147.40, Est GFR (MDRD) Af Amer 152, Est GFR (MDRD) Non-Af 126, BUN/Creatinine Ratio 9.7 L, Glucose 211 H, Calcium 8.4 L 10/28/20 07:32: POC Glucose 212 H Current Medications Acetaminophen (Acetaminophen 325 Mg Tablet) 650 mg PO Q6H PRN PRN PRN Reason: Pain Score 1-10/Temp > 100.7 F Albuterol Sulfate (Albuterol 2.5 Mg/3 Ml Vial.Neb.) 2.5 mg INHALATION Q2H PRN PRN PRN Reason: SOB/Wheezing Budesonide (Budesonide Respules 0.5 Mg/2 Ml Ampul.Neb.) 0.5 mg INHALATION Q12H.RT [facility] Last Admin: 10/28/20 07:28 Dose: 0.5 mg Documented by: Dextrose (Dextrose 50%-Water 25 Gm/50 Ml Disp.Syrin) 0 gm IV X1 PRN; Protocol PRN Reason: Hypoglycemia Glucagon (Glucagon 1 Mg/Ml Syringe) 1 mg IM .X1 PRN PRN Reason: Hypoglycemia Potassium Chloride/Sodium Chloride (Kcl 20meq In 0.45% Ns 1000ml) 1,000 mls @ 125 mls/hr IV .Q8H [facility] Last Admin: 10/28/20 01:19 Dose: 125 mls/hr Documented by: Pantoprazole Sodium 40 mg/ (Sodium Chloride) 110 mls @ 330 mls/hr IV Q24 [facility] Last Infusion: 10/27/20 15:20 Dose: Infused Documented by: Insulin Glargine (Insulin Glargine 100 Units/Ml Pen) 10 units SC [facility] Insulin Glargine (Insulin Glargine 100 Units/Ml Pen) 10 units SC [facility] Last Admin: 10/27/20 18:34 Dose: 10 units Documented by: Insulin Human Lispro (Insulin Lispro 100 Unit/Ml Insuln.Pen) 10 unit SC LUNCH [facility]ILLY Insulin Human Lispro (Insulin Lispro 100 Unit/Ml Insuln.Pen) 10 unit SC [facility] Last Admin: 10/27/20 18:35 Dose: 10 units Documented by: Insulin Human Lispro (Insulin Lispro 100 Unit/Ml Insuln.Pen) 10 unit SC [facility] Insulin Human Lispro (Insulin Lispro 100 Unit/Ml Insuln.Pen) 0 unit SC ACHS & 3AM LILLY; Protocol Last Admin: 10/28/20 03:49 Dose: 4 u Documented by: Melatonin (Melatonin 3 Mg Tablet) 3 mg PO QHS PRN PRN PRN Reason: INSOMNIA Morphine Sulfate (Morphine 2 Mg/Ml Syringe) 2 mg IV Q3H PRN PRN PRN Reason: Pain Score 6-10 Ondansetron HCl (Ondansetron 4 Mg/2 Ml Vial) 4 mg IV Q8H PRN PRN PRN Reason: NAUSEA/VOMITING Oxycodone HCl (Oxycodone 5 Mg Tablet) 5 mg PO Q4H PRN PRN PRN Reason: Pain Score 4-5 Potassium Chloride (Potassium Chloride 20 Meq Tablet) 20 meq PO BIDCM [facility] Last Admin: 10/27/20 18:34 Dose: 20 meq Documented by: Prochlorperazine Edisylate (Prochlorperazine 10 Mg/2 Ml Vial) 5 mg IV Q4H PRN PRN PRN Reason: Breakthrough Nausea/Vomiting Senna/Docusate Sodium (Senna/Docusate Sodium 1 Tablet) 2 tablet PO BID PRN PRN Reason: Constipation Sodium Chloride (0.9% Saline Lock 10 Ml Syringe) 10 - 40 ml IV UD PRN PRN Reason: SALINE FLUSH Throat Lozenges (Benzocaine/Menthol 1 Lozenge) 1 lozenge MUCOUS MEM Q2H PRN PRN PRN Reason: SORE THROAT Discharge Diet: 1800 Calorie Control Diet Discharge Activity: Return to Normal Activity Home Medications: Medications to take at Discharge Albuterol Inhaler [Ventolin Hfa] 2 puff INHALATION Q4H PRN PRN 02/15/19 Fluticasone 44 Mcg [Flovent 44 Mcg] 2 puff IH BID 11/12/19 Omeprazole 20 mg DAILY 11/12/19 flash glucose scanning reader See Rx Instructions .ROUTE .MEDSUPPLY #1 ea 09/10/20 flash glucose sensor See Rx Instructions .ROUTE .MEDSUPPLY #2 ea 09/10/20 insulin lispro 100 unit/mL subcutaneous pen 10 unit SC TID #15 ml 09/10/20 blood sugar diagnostic See Rx Instructions .ROUTE .MEDSUPPLY #100 ea 09/15/20 Ondansetron [Zofran Odt] 4 mg PO Q8H PRN PRN #10 tab 10/19/20 Insulin Glargine,Hum.rec.anlog [Lantus Solostar] 10 unit SC BIDCM #15 ml 10/28/20 Potassium Chloride [K-Dur] 20 meq PO BIDCM #60 tab 10/28/20 Following Prescriptions Were Given to Patient: Potassium Chloride [K-Dur] 20 meq PO BIDCM #60 tab Transmission Status: Received by [facility] Primary Care Physician: Tori Butler MD [Primary Care Provider] - Please follow up with your Primary Care Physician in: in 1 week Please Follow Up With: Lauro Galindo MD When: in 2 weeks Disposition: Home Minutes spent on discharge:: 35 Patient Condition:: Stable Medical Necessity - Tobacco Use Smoking Status: Never smoker Meaningful Use Info Meaningful Use Diagnoses (Choose all that apply): None applicable Inpatient E&M: 66853 Disch Hosp
[2020-10-28] MEDS: Insulin Lispro 100 UNIT/ML INSULN.PEN 10 UNIT SC (09:38)
[2020-10-28 09:45] VITALS: BP 110/63; PULSE 87; RESP 18; TEMP 36.6; O2SAT 100
--- NOTE | 2020-10-28 09:53 | CASEMGMT ---
Social Work Assessment SW reviewed chart. Pt with diagnosis of psychosocial problem. Personal Status: SW met with pt to complete assessment. SW introduced self and role at [facility]. Pt is alert and orientated x3. Living Arrangements: Pt states that he lives with family (grandma, grandpa, mom, little brother). ADLs: Pt states he is independent with ADLs. PCP: Dr. Tori Butler Specialists: Pt states he is still seeing Dr. King Salinas Pharmacy: [facility] DME: Pt states he has the equipment needed to monitor his diabetes Substance Abuse Hx: Pt denied Mental Health Hx: Pt denied Pt states he knows how to check his diabetes, states no concerns with checking. Pt denied any financial concerns, pt states he is able to access basic needs (water, food, housing). Pt states no concerns at this time. Pt denied additional needs or concerns. 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
[2020-10-28 10:18] LABS: Anion Gap 14 (5-15); BUN 7 mg/dL (7-18); BUN/Creat Ratio 8.6 RATIO (10-20); Calcium,Total 8.4 mg/dL (8.5-10.1); Chloride 105 mmol/L (98-107); Creatinine, Serum 0.81 mg/dL (0.70-1.30); EST Glomerular Filtration Rate 129 mL/min (>60); Est Glom Filt Rate - Afr Amer 156 mL/min (>60); Estimated Creatinine Clearance 151.04 ml/min; Glucose 280 mg/dL (74-106); Potassium 3.7 mmol/L (3.5-5.1); Sodium Level 135 mmol/L (136-145)
[2020-10-28 11:40] VITALS: BP 110/63; PULSE 87; RESP 100; TEMP 36.6
--- NOTE | 2020-10-29 14:07 | CASEMGMT ---
VERONA FONTANEZ Discharge Follow-up Phone Call: MELVIN: Vira Strata: 3 Call Date: 10/29/2020 Discharge Date: 10/28/2020 Time of Call: 1405 Duration: 1 min Admitting Diagnosis: DKA VERONA FONTANEZ attempted to complete follow-up phone call after recent hospitalization. No answer, voice message left with return contact information.
== END 2020-10-28 11:42 | disposition home or self-care (01) | DRG 420 ==
LOC: ED 09:17 → ICU 09:51 → MS3 17:25
PROVIDERS: Emergency Medicine; Admitting Provider Internal Medicine; Emergency Provider Emergency Medicine; PCP Pediatrics; Visit Provider Internal Medicine
DX: E10.10 Type 1 diabetes mellitus with ketoacidosis without coma (principal); Z91.19 Patient's noncompliance with other medical treatment and regimen; K21.9 Gastro-esophageal reflux disease without esophagitis; J45.20 Mild intermittent asthma, uncomplicated; E87.1 Hypo-osmolality and hyponatremia; Z65.9 Problem related to unspecified psychosocial circumstances
CPT/HCPCS: 36415; 80048; 80076; 81001; 82009; 82803; 82962; 83735; 83930; 85025; 93005; 94640; 96360; 96361; 96372; 97110; 99218; 99285; J7030; A4216; G0378; J7799

== ENCOUNTER 2020-11-30 15:00 | Outpatient (RCR) | payer MEDICAID, SELFPAY ==
--- NOTE | 2020-10-15 08:33 | HP.PTEVAL_ITS ---
Patient's Visit Information SHIRA STEPHENSON is a 19 year old M referred to Physical Therapy by Dr. Tori Butler MD with a diagnosis of R knee pain. Date of Evaluation: 10/15/20 Physical Therapist: Yung Bishop, PT, ATC - Visit Plan Frequency: 2-3x /Week Duration: 4-6 Weeks Plan: R LE strengthening and stretching, balance and proprio, core strengthening, bike, and HEP - Subjective Pt reports his R knee has been sore for about a week. Pt reports he had to have surgery in 6th grade secondary to a fracture of the R distal femur while suffering a fall while playing basketball. Pt reports his knee had been doing well until it started to swell and give out on him for the past week. Pt notes he has fallen twice in the past week because his knee is giving out. L knee locks up on him occasionally. Pt reports he has had xrays in R knee which he was told the only finding was fluid in his R knee. Pt is type 1 diabetic. Pt reports prolonged standing or walking increases his pain. Pt notes he is not able to run secondary to pain. No tingling or numbness in R LE. No sleep difficulty secondary to pain. No stairs at home. 0/10 pain at rest, 5/10 pain at worst (at work trying to lift boxes). Pt is an employee at [employer]. - Pain R knee Pain Intensity (Out of 10): 0 Pain Intensity Range: 5 - Objective Neuro: B LE sensation is WNL to light touch. B patellar reflex= 1/3. Palpation: Pt is very sore along the medial border of the R patella. No obvious deformity present this date. Girth at joint line: L knee 38 cm, R knee 40 cm. MMT: L knee is 5/5 throughout. R knee is 3/5 throughout and painful with all testing. ROM: L knee 0-130 degrees, R knee 0-120 degrees. Special testing: Positive McConnels sign for patellofemoral pain - Goals Goal 1:: Decrease R knee pain x 50% to aid with standing tolerance Goal Time Frame: 4-6 Weeks Goal 2:: Increase R knee ROM x 10 degrees to aid with increasing tolerance for work requirements Goal Time Frame: 4-6 Weeks Goal 3:: Increase R knee strength x 1 grade to aid with tolerance for ambulation Goal Time Frame: 4-6 Weeks Goal 4:: I with HEP Goal Time Frame: 4-6 Weeks - Rehabilitation Potential Physical Therapy Diagnosis: Pt has R knee pain, weakness, and limited ROM secondary to patello-femoral syndrome of R knee Rehabilitation Potential: Good - Anticipated Interventions Patient/Client Instruction: Educate patient on: Condition, Plan of Care For the Purpose of:: To improve self management Therapeutic Exercise to Include: Strength training, Endurance training, Balance training, Flexibilty training, Dynamic Lumbar Stabilization For the Purpose of:: To decrease pain, To increase ROM, To improve muscle performance and motor function Cryotherapy (ice pack, ice massage): Yes For the Purpose of:: To decrease pain Thank you for the opportunity to evaluate your patient. For Medicare and Medicare HMO plans, please review the plan of care and approve it. It will need to be FAXED BACK to us at [phone] for Medicare purposes. For Medicare only, by signing this I certify the plan of care. Please let me know if there are questions or concerns regarding this plan of care. Physician Signature: Date:
--- NOTE | 2020-12-22 09:01 | HP.PT.NRP ---
SHIRA STEPHENSON was seen in my office for initial evaluation on 10/15/20. The following Plan of Care was established for this patient: Initial Frequency: 2-3x /Week Initial Duration: 4-6 Weeks Patient/Client Instruction: Educate patient on: Condition, Plan of Care For the Purpose of:: To improve self management Therapeutic Exercise to Include: Strength training, Endurance training, Balance training, Flexibilty training, Dynamic Lumbar Stabilization For the Purpose of:: To decrease pain, To increase ROM, To improve muscle performance and motor function Cryotherapy (ice pack, ice massage): Yes For the Purpose of:: To decrease pain This patient was last seen in our office . Pertinent comments regarding their Physical therapy will appear below: Pt was treated for 6 PT visits for R knee pain through the date of 11/30/20. Pt did not show up for his remaining 5 visits through today, and is discontinued at this time. At this point I will be discontinuing this patient from physical therapy. I would be happy to see this patient again in the future if found appropriate by the physician. Thank you! Yung Bishop, PT, ATC
== END 2020-11-30 19:00 | disposition home or self-care (01) ==
LOC: PT 15:00
PROVIDERS: PCP Pediatrics; Referring Provider Pediatrics; Visit Provider Pediatrics
DX: M25.561 Pain in right knee (principal); M25.361 Other instability, right knee; G89.29 Other chronic pain
CPT/HCPCS: 97110; 97161

== ENCOUNTER 2020-12-05 19:18 | Emergency (ER) | payer MEDICAID, SELFPAY ==
[2020-10-27 09:55] VITALS: BMI 21.3
[2020-12-05 19:18] VITALS: BP 114/81; PULSE 109; RESP 15; TEMP 36.4; O2SAT 100; BMI 23.3
--- NOTE | 2020-12-05 21:31 | ED.VIS.GEN ---
History of Present Illness Chief Complaint: Wound Check Informant: Patient Onset: Days Context: Gradual Onset Narrative: Patient is a 19-year-old male with history of type 1 diabetes mellitus presenting with a wound to his left thigh. States is been present for about a week. It started out as look like a small pimple. He stated it was draining a small amount of pus from it today. He also states that seem like the scab in the center came off and it continued to bleed. Patient denies any associated fever or chills. He states the redness has gotten worse as well over the week. Is not changing rapidly. He denies any other complaints at this time. He denies any history of MRSA or staph infections. Patient states his blood sugars have been normal for him. They have been running between 120 and 140. He thinks his last A1c was less than 7. Past Medical History - Allergies and Home Meds Allergies/Adverse Reactions: Allergies No Known Allergies Allergy (Verified 12/05/20 19:20) Primary Care Physician: Tori Butler MD [Primary Care Provider] - Past Medical History: - - Insulin dependent diabetes mellitus Surgical History: noncontributory, - - Right knee surgery. Smoking Status: Never smoker - Family History Maternal Family History: Family History (Last Reviewed 10/27/20 @ 11:[address] Will Mason MD) Other Asthma CVA (cerebral vascular accident) Diabetes Hypertension Thyroid disorder Family History: Reports: - - Patient with no market maternal or paternal family history including heart disease, diabetes, cancer. Paternal Family History: Family History (Last Reviewed 10/27/20 @ 11:[address] Will Mason MD) Other Asthma CVA (cerebral vascular accident) Diabetes Hypertension Thyroid disorder Family History: Reports: - - Patient with no market maternal or paternal family history including heart disease, diabetes, cancer. Review of Systems General: Denies: Chills, Fever, Sweats Eyes: Denies: Visual changes - bilaterally, Diplopia ENT: Denies: Rhinorrhea, Sore throat Cardiovascular: Denies: Chest pain, Palpitations Respiratory: Denies: Dyspnea, Cough, Dyspnea on exertion Gastrointestinal: Denies: Abdominal pain, Nausea, Vomiting, Diarrhea, Melena, Hematochezia Genitourinary: Denies: Dysuria, Hematuria, Frequency Musculoskeletal: Reports: Extremity Pain - left thigh . Denies: Back pain Skin: Reports: Wounds - left thigh. Denies: Rash Neurological: Denies: Headache, Weakness, Numbness Physical Exam Vital Signs/Narrative: Vital Signs Temp Pulse Resp BP Pulse Ox 12/05/20 19:18 97.6 F L 109 H 15 114/81 H 100 Inital Vital Signs reviewed: Yes General: Well nourished, Well developed, No Acute Distress Head: Normocephalic, Atraumatic Eyes: Perrl, EOMI ENT: Moist mucous membranes, No rhinorrhea Neck: Supple, Nontender Cardiovascular: Regular rate, Regular rhythm, No murmurs Respiratory: No distress, CTA bilaterally, Chest nontender Abdomen: Soft, Nontender, Nondistended, Normal bowel sounds Back: Nontender, Normal Inspection Extremities: Nontender, No edema Skin: No rash, - - Or centimeter by 5 cm area of erythema with associated warmth and some mild induration. The central area is slightly ulcerated and has a central draining area that is bleeding. Is mildly tender to palpation. Neurological: Alert, Oriented x3, Cranial nerves II-XII grossly intact, Normal Strength, Normal Sensation Psychological: Normal affect, Normal Mood Diagnostic/Tx/Re-eval - Medical Decision Making Patient is evaluated for wound on his left thigh. Is concerning for abscess versus cellulitis. I did ultrasound the area myself which does show area of fluid collection so an I&D is performed. See procedure note. Patient will be covered with Bactrim and Keflex and given close follow-up as he is at increased risk of delayed wound healing as he is diabetic. He is otherwise well-appearing and I do not think lab work or further imaging is indicated at this time. He is given return precautions. Patient is counseled on signs and symptoms requiring return to the emergency room. Patient verbalizes agreement and understand this plan. Patient discharged home in stable and improved condition. Procedures Procedure(s): Incision and drainage. Informed consent obtained. Area anesthetized with 1% lidocaine with epinephrine. A 1 cm stab incision made over the area of maximum fluctuance. Bloody drainage is obtained however no purulence is appreciated. It is explored with hemostats to break up any potential loculations. It is left open to heal by secondary intent and continue to drain. ED Disposition - Plan for ED Patient: Disposition: Home or Assisted Living Diagnosis: Cellulitis of left thigh, Abscess of left thigh Instructions: ED Abscess Incision And Drainage, ED Cellulitis Prescriptions: Smz/Tmp Ds [Bactrim Ds] 1 tab PO BID #14 tab Transmission Status: Received by [facility] Cephalexin [Keflex] 500 mg PO Q6 #40 cap Transmission Status: Received by [facility] Referrals: Tori Butler MD [Primary Care Provider] - Additional Instructions: Apply warm compresses to the area. Please follow-up with your primary care doctor this week for wound check.
[2020-12-05] MEDS: Lidocaine 1% (20 ml mdv) 20 ML Vial INFILT (21:56)
[2020-12-05] MEDS: Smz/Tmp Ds Tablet 1 TABLET PO (21:56)
[2020-12-05] MEDS: Cephalexin 250 MG Capsule 500 MG PO (21:56)
[2020-12-05 21:57] VITALS: BP 132/74; PULSE 99; RESP 15; O2SAT 97
== END 2020-12-05 21:58 | disposition home or self-care (01) ==
PROVIDERS: Emergency Provider Emergency Medicine; PCP Pediatrics
DX: L03.116 Cellulitis of left lower limb (principal); L02.416 Cutaneous abscess of left lower limb; E10.9 Type 1 diabetes mellitus without complications; Z79.4 Long term (current) use of insulin
CPT/HCPCS: 10060; 99284

== ENCOUNTER 2020-12-09 15:39 | Inpatient (IN) | payer MEDICAID, SELFPAY ==
[2020-12-09] VITALS (15 sets, daily range): BP systolic 104–133; BP diastolic 67–94; PULSE 94–112; RESP 13–22; TEMP 35.6–36.6; O2SAT 98–100; BMI 21.1; BMI 21.0
--- NOTE | 2020-12-09 16:02 | ED.DCSUM_ITS ---
- ER Visit Summary Date of Service: 12/09/20 Chief Complaint: Hyperglycemia History of Present Illness: The patient is a 19 M presenting with elevated blood sugar. Patient was seen by his primary care physician today and sent into the ED for blood sugar of 600. He is an insulin-dependent diabetic. States the last time he checked his blood sugar at work this morning it was 110. He has a wound to his left thigh that he is currently on Bactrim and Keflex after I&D was performed in the ED on 12/05. He denies fever. He complains of mild shortness of breath. Denies other complaints. Physical Examination: Vitals are stable. Patient is afebrile. Alert no acute distress. HEENT exam dry mucous membranes Neck is supple. Lungs are clear and equal bilaterally. Heart is regular tachycardic Abdomen is soft nontender nondistended. Extremities 5X 3 cm left thigh wound with surrounding erythema no areas of fluctuance Skin is warm and dry. No focal neurologic deficit. Remainder of exam is unremarkable. Emergency Department Course and Treatment: Patient was given IV fluids. CBC shows white count 11.6, platelet 502. Chemistries show sodium 116, CO2 9, anion gap 23, glucose 1000, creatinine 1.53. Total bili 1.1, alk phos 154. Urine shows ketones, 0 white cells, 0 red blood cells. Lactic acid 3.3. Acetone moderate. Covid negative. Blood cultures are pending. Chest x-ray read by myself and radiology shows no acute process. Patient was given vancomycin IV and started on insulin drip. Discussed with hospitalist for admission. Disposition: Admission Impression: DKA, left thigh cellulitis This note was generated with [employer]beat dictation software. It may contain incorrect words, spelling, and punctuation that were not noted in review of the chart prior to signing ED Disposition - Plan for ED Patient: Referrals: Tori Butler MD [Primary Care Provider] -
[2020-12-09 16:13] LABS: Bacteria 0 SEEN /hpf (None Seen); Mucous, Urine 0 SEEN /hpf (<or=2+); Red Blood Cells-Urine 0 SEEN /hpf (0-5); Squamous Epithelial Cells - UA 0 SEEN /hpf (0-5); White Blood Cells 0 SEEN /hpf (0-5)
[2020-12-09 16:15] LABS: Color, Urine Straw (Yellow); Glucose, Dipstick 1000 mg/dl (Normal); Leukocyte Esterase-Dipstick Negative /ul (Negative); Nitrite-Dipstick Negative (Negative); Occult Blood-Urine 10 /ul (Negative); Protein-Dipstick 15 mg/dl (Negative); Specific Gravity, Urine 1.015 (1.002-1.030); Urine Bilirubin Dipstick Negative (Negative); Urine Clarity Clear (Clear); Urine Urobilinogen Normal (Normal)
--- NOTE | 2020-12-09 16:33 | RAD_ITS ---
STUDY: X-RAY CHEST REASON FOR EXAM: Male, 19 years old. HYPERGLYCEMIA. TECHNIQUE: AP portable COMPARISON: 10/19/2020 FINDINGS: The lungs are clear and expanded. There is no demonstrated pleural abnormality. Normal size heart. Normal mediastinum and rudi. Normal visualized pulmonary arteries. Normal visualized aortic arch and descending thoracic aorta. Normal visualized thoracic spine. Normal visualized ribs, clavicles, and shoulders. There is no demonstrated abnormality of the visualized soft tissue structures of the upper abdomen. No significant change since prior exam RAD/Chest 1 View (Portable) IMPRESSION: Normal x-ray examination of the chest. Electronically Signed: Jef Rogers MD at 16:43 EST , Service support ,
[2020-12-09] MEDS: 0.9% Normal Saline 1,000 ML 1000 ML IV (16:39)
[2020-12-09 16:51] LABS: Absolute Neutrophil Count 9.8 X10^3/uL (2.0-7.7); Basophil# 0.08 X10^3/uL; Basophil% 0.7 % (0-1); Hemoglobin 16.4 g/dL (13.0-16.5); Mean Corp Hgb Conc 34.2 g/dL (32-36); Mean Corpuscular Hgb 29.5 pg (27.0-32.0); Mean Corpuscular Volume 86.3 fL (80-94); Mean Platelet Vol. 9.9 fl (6.2-12.0); Monocyte# 0.76 X10^3/uL; Monocyte% 6.5 % (0-10); NRBC Flagged by Analyzer 0 % (0-5); Neutrophil # 9.81 X10^3/uL (2.7-7.7); Neutrophil % 84.4 % (47-70); Platelet Count 502 K/mm3 (150-450); Red Blood Count 5.56 M/mm3 (4.6-6.2); White Blood Count 11.6 K/mm3 (4.4-11.0)
[2020-12-09 17:09] LABS: Ketone-Dipstick 150 mg/dl (Negative)
[2020-12-09 17:11] LABS: AST(SGOT) 11 U/L (15-37); Alanine Aminotransfer ALT/SGPT 25 U/L (16-61); Albumin, Serum 4.7 g/dL (3.2-5.0); Alkaline Phosphatase 154 U/L (45-117); Anion Gap 23 (5-15); BUN 15 mg/dL (7-18); BUN/Creat Ratio 9.8 RATIO (10-20); Calcium,Total 9.2 mg/dL (8.5-10.1); Chloride 84 mmol/L (98-107); Creatinine, Serum 1.53 mg/dL (0.70-1.30); EST Glomerular Filtration Rate 62 mL/min (>60); Est Glom Filt Rate - Afr Amer 75 mL/min (>60); Estimated Creatinine Clearance 79.72 ml/min; Globulin 4.7 g/dL (2.2-4.2); Glucose 1000 mg/dL (74-106); Potassium 4.5 mmol/L (3.5-5.1); Protein, Total 9.4 g/dL (6.4-8.2); Sodium Level 116 mmol/L (136-145)
[2020-12-09 17:20] LABS: Lactic Acid 3.3 mmol/L (0.4-1.9)
[2020-12-09] MEDS: 0.9% Normal Saline 1,000 ML 999 ML IV (17:59)
[2020-12-09] MEDS: Vancomycin IV 1,000 MG/200 ML BAG 200 MG IV (18:42)
--- NOTE | 2020-12-09 18:54 | ED.RN ---
report called to Tatiana in ICU
--- NOTE | 2020-12-09 18:56 | HP.PCM_ITS ---
History of Present Illness Date of Admission: 12/09/20 Chief Complaint: Left lower extremity leg wound and hyperglycemia The patient is a 19 year old M with a PMH as below who presents to the hospital after seeing his PCP today. He was seen in the ER 4 days ago for left lower extremity abscess which was drained unfortunately no culture was obtained at that time. He was discharged on Keflex and Bactrim. However his PCP saw him today and felt that it looked a little bit worse but also noticed on routine labs that his blood sugar was over 600. Because of the left lower extremity cellulitis and blood sugar over 600 his PCP sent him in. In the ER he was found to be hyponatremic with 116 with a CO2 of 9 and a blood sugar over thousand with an elevated lactic acid. He has received 1 L bolus in the ER. And started on insulin drip. He feels better so far being here in the ER, and has no current complaints to me. Past Medical History Past Medical History (Chronic Problems): Chronic Problems (Last Reviewed 10/27/20 @ 11:[address] Will Mason MD) Psychosocial problem (Chronic) Noncompliance with diabetes treatment (Chronic) Diabetes (Chronic) History of type 1 diabetes mellitus (Chronic) DKA, type 1 (Chronic) Asthma (Chronic) GERD (gastroesophageal reflux disease) (Chronic) Medical History: Medical History (Last Reviewed 10/27/20 @ 11:[address] Will Mason MD) femur surgery Diabetes mellitus type 1 E10.9 Allergies No Known Allergies Allergy (Verified 12/09/20 15:40) Home Medications: Ambulatory Orders Medication Instructions Recorded Albuterol Inhaler [Ventolin Hfa] 2 puff INHALATION Q4H PRN PRN 02/15/19 Fluticasone 44 Mcg [Flovent 44 Mcg] 2 puff IH BID 11/12/19 Ondansetron [Zofran Odt] 4 mg PO Q8H PRN PRN #10 tab 10/19/20 Insulin Glargine [Lantus SoloStar 15 units SQ QHS 12/05/20 Pen] Cephalexin [Keflex] 500 mg PO Q6 12/09/20 Insulin Lispro [Humalog Kwikpen] 10 unit SC TID 12/09/20 Omeprazole [Prilosec] 20 mg PO DAILY PRN PRN 12/09/20 Potassium Chloride [K-Dur] 20 meq PO BIDCM 12/09/20 Smz/Tmp Ds [Bactrim Ds] 1 tab PO BID 12/09/20 Surgical History: Surgical History (Last Reviewed 10/27/20 @ 11:[address] Will Mason MD) Hx of knee surgery Z98.890 Surgical History: noncontributory, - - Right knee surgery. Psychiatric History: No pertinent psych hx Smoking Status: Never smoker Tobacco Use: Non-smoker Alcohol: None Drugs: None - *Family History Maternal Family History: Family History (Last Reviewed 10/27/20 @ 11:[address] Will Mason MD) Other Asthma CVA (cerebral vascular accident) Diabetes Hypertension Thyroid disorder History Items: - - Patient with no market maternal or paternal family history including heart disease, diabetes, cancer. Paternal Family History: Family History (Last Reviewed 10/27/20 @ 11:[address] Will Mason MD) Other Asthma CVA (cerebral vascular accident) Diabetes Hypertension Thyroid disorder History Items: - - Patient with no market maternal or paternal family history including heart disease, diabetes, cancer. Review of Systems Constitutional: Denies: Chills, Fever, Weight Change HEENT: Denies: Head Aches, Sinus Congestion, Sinus Drainage Cardiovascular: Denies: Chest Pain, Palpitations Respiratory: Denies: Cough, Shortness of breath at rest, Sputum production Gastrointestinal: Denies: Abdominal Pain, Nausea, Vomiting Genitourinary: Denies: Dysuria Musculoskeletal: Denies: Joint Pain, Joint Tenderness Skin: Reports: Wounds - Left thigh wound. Denies: Rash Neurological: Denies: Numbness, Tingling, Focal weakness Psychiatric: Denies: Anxiety, Depression Hematologic/ Lymphatic: Denies: Easy Bruising, Easy Bleeding VTE Information - Inpt Only VTE Present on Admission: No - Physical Exam Vitals/I&O's: Vital Signs Temp Pulse Resp BP Pulse Ox 98 F 94 20 H 124/94 H 100 12/09/20 18:00 12/09/20 18:00 12/09/20 18:00 12/09/20 18:00 12/09/20 18:00 Oxygen Delivery Method Room Air Weight: 160 lb Body Mass Index (BMI) 21.1 Finger Stick Blood Glucose 137 Intake and Output for Last 24 Hours 0112/08/20 12/09/20 23:59 23:59 23:59 Intake Total 1000 / 1000 Output Total 3000 / 3000 Balance -1999 General: Alert, Oriented x3, Cooperative, No apparent distress HEENT: Atraumatic, PERRLA, EOMI, Normocephalic Oral: Dry Mucosa Neck: Supple, No JVD Lungs: Clear to auscultation, Normal air movement, No rhonchi, No wheeze, No rales Cardiovascular: Regular rate, Regular Rhythm, Normal S1, Normal S2, No murmurs Abdomen: Soft, Non Tender, Non-Distended, No Hepato-splenomegaly Extremities: No edema, Capillary Refill Less than 3 Seconds Skin: No rashes, No breakdown, Ulcer/ Wound - Left posterior thigh a 5 to 6cm purplish area with a 1 cm incision in the middle. No active drainage some surrounding redness with extensive induration Neurological: Neuro grossly intact, Sensory exam intact to light touch and pain Psych/Mental Status: Normal Affect, Appropriate Microbiology Past 72 Hours 12/09/20 16:13 Mucosa - Nose SARS-CoV-2 Antigen (Rapid) - Final Laboratory Results 12/09/20 16:00: Urine Color Straw, Urine Clarity Clear, Urine pH 5.0, Ur Specific [place] 1.015, Urine Protein 15 H, Urine Glucose (UA) 1000 H, Urine Ketones 150 H, Urine Occult Blood 10 H, Urine Nitrite Negative, Urine Bilirubin Negative, Urine Urobilinogen Normal, Ur Leukocyte Esterase Negative, Urine RBC 0 SEEN, Urine WBC 0 SEEN, Ur Squamous Epith Cells 0 SEEN, Urine Bacteria 0 SEEN, Urine Mucus 0 SEEN 12/09/20 16:19: WBC 11.6 H, RBC 5.56, Hgb 16.4, Hct 48.0, MCV 86.3, MCH 29.5, MCHC 34.2, RDW Std Deviation 38.0, RDW Coeff of Rabia 12.0, Plt Count 502 H, MPV 9.9, Immature Gran % (Auto) 2.400 H, Neut % (Auto) 84.4 H, Lymph % (Auto) 6.0 L, [place] % (Auto) 6.5, Eos % (Auto) 0.0, Baso % (Auto) 0.7, Absolute Neuts (auto) 9.8 H, Absolute Lymphs (auto) 0.70 L, Nucleated RBC % 0 12/09/20 16:19: Sodium 116 L*, Potassium 4.5, Chloride 84 L, Carbon Dioxide 9.0 L*, Anion Gap 23 H, BUN 15, Creatinine 1.53 H, Estim Creat Clear Calc 79.72, Est GFR (MDRD) Af Amer 75, Est GFR (MDRD) Non-Af 62, BUN/Creatinine Ratio 9.8 L, Glucose 1000 H*, Calcium 9.2, Total Bilirubin 1.10 H, AST 11 L, ALT 25, Alkaline Phosphatase 154 H, Total Protein 9.4 H, Albumin 4.7, Globulin 4.7 H, Albumin/Globulin Ratio 1.0 12/09/20 16:19: Lactic Acid 3.3 H* 12/09/20 16:19: Acetone Level MODERATE H Current Medications Dextrose (Dextrose 50%-Water 25 Gm/50 Ml Disp.Syrin) 0 gm IV X1 PRN; Protocol PRN Reason: Hypoglycemia Protocol Insulin Human Lispro 100 unit/ (Sodium Chloride) 100 mls @ 7.258 mls/hr CONT INF .[id number] LILLY; Protocol Stop: 12/10/20 07:16 Last Admin: 12/09/20 18:01 Dose: 7.3 mls/hr Documented by: Vancomycin HCl (Vancomycin) 1,000 mg in 200 mls @ 200 mls/hr IV X1 ONE Stop: 12/09/20 18:59 Last Admin: 12/09/20 18:42 Dose: 200 mls/hr Documented by: Sodium Chloride (0.9% Saline Lock 10 Ml Syringe) 10 - 40 ml IV UD PRN PRN Reason: SALINE FLUSH Assessment/Plan All Active Problems (Last Reviewed 10/27/20 @ 11:[address] Will Mason MD) Diabetic ketoacidosis associated with type 1 diabetes mellitus (Acute) RADHA (acute kidney injury) (Acute) 1. Type 1 diabetes in DKA likely instigated from left thigh abscess with cellulitis/pseudohyponatremia -There is no culture data, will try to get 1 now and transition to IV vancomycin -With DKA protocol including IV fluids, BMP monitoring and insulin drip -Consult the dietitian for education -We'll have the wound care nurse to evaluate his wound, depending on how it looks in the next day or 2 he may need further debridement 2. GERD -Stable -Tinea with PPI DVT: Low risk Inpatient E&M: [id number] Init Hosp L2
[2020-12-09 19:26] LABS: Bedside Glucose > 500 mg/dL (70-110)
[2020-12-09 19:26] LABS: Bedside Glucose > 500 mg/dL (70-110)
--- NOTE | 2020-12-09 19:41 | PCS.PANDOC ---
PANDEMIC DOCUMENTATION INITIATED: Date: 12/09/20 Time: 1924
[2020-12-09] MEDS: 0.9% Normal Saline 1,000 ML 500 ML IV (19:54)
[2020-12-09 20:32] LABS: Reflex Lactate? Y
[2020-12-09 20:33] LABS: Anion Gap 17 (5-15); BUN 13 mg/dL (7-18); BUN/Creat Ratio 11.8 RATIO (10-20); Calcium,Total 8.5 mg/dL (8.5-10.1); Chloride 101 mmol/L (98-107); EST Glomerular Filtration Rate 91 mL/min (>60); Est Glom Filt Rate - Afr Amer 110 mL/min (>60); Estimated Creatinine Clearance 110.46 ml/min; Glucose 464 mg/dL (74-106); Potassium 3.3 mmol/L (3.5-5.1); Sodium Level 130 mmol/L (136-145)
[2020-12-09 20:46] LABS: Magnesium 1.7 mg/dL (1.6-2.6); Phosphorus 2.3 mg/dL (2.5-4.9)
[2020-12-09] MEDS: Potassium Chloride 10mEq/100mL 10 MEQ/100 ML IV.SOLN. 100 MEQ IV BOLUS ×2 (21:22→22:40)
[2020-12-09] MEDS: 0.9% Normal Saline 1,000 ML 150 ML IV (21:24)
[2020-12-09 22:05] LABS: Bedside Glucose 499 mg/dL (70-110)
[2020-12-09 22:05] LABS: Bedside Glucose 406 mg/dL (70-110)
[2020-12-09 23:42] LABS: Anion Gap 11 (5-15); BUN 12 mg/dL (7-18); BUN/Creat Ratio 12.6 RATIO (10-20); Calcium,Total 8.5 mg/dL (8.5-10.1); Chloride 106 mmol/L (98-107); Creatinine, Serum 0.95 mg/dL (0.70-1.30); EST Glomerular Filtration Rate 107 mL/min (>60); Est Glom Filt Rate - Afr Amer 130 mL/min (>60); Glucose 263 mg/dL (74-106); Potassium 3.5 mmol/L (3.5-5.1); Sodium Level 133 mmol/L (136-145)
[2020-12-10] VITALS (17 sets, daily range): BP systolic 99–132; BP diastolic 49–80; PULSE 94–118; RESP 12–18; TEMP 36.4–37.8; O2SAT 97–100; BMI 21.0
--- NOTE | 2020-12-10 | ABS_PTH ---
PATIENT: SHIRA STEPHENSON LOC: MS3 U#:[id number] AGE/SX: 19/M [place] [facility] [place]: Dr. Dean Jiménez MD : 2000 BED: 1 DIS: 12/13/2020 SPEC #: [id number] RECD: 12/13/20 07:40 STATUS: KENIA REQ #: [id number] HONG: 12/10/20 00:[address]: Ciera Laura DEPT: SURGICAL PATHOLOGY RECD BY: Nahum Siu ENTERED: 12/13/20 10:59 SP TYPE: Abscess OTHR DR: MD Dr. Ciera Ceron MD Dr. Nicholas F Kotsonis, MD Tissues: Leg, NOS Procedures: Special Stain Group I Surgery Specimen Level IV GMS Stain (control) Comments: @ Ordering doctor for SUIII edited from to DR.LWANG Kee GALO at 12/13/20 1322 @ Submitting doctor edited from to DR.LWANG Sweet by CLOVER at 12/13/202 HEADER OPERATION: Incision and drainage, abscess PRE-OP DIAGNOSIS: Type 1 diabetes in DKA likely instigated from left thigh abscess with cellulitis/ pseudohyponatremia TISSUE SUBMITTED: Subcutaneous tissue left leg MICROSCOPIC DIAGNOSIS Skin and soft tissue of left leg, excision: Ulceration with associated acute and chronic inflammation and abscess formation. Positive for fungal hyphae. See comment. AM:yefri 12/14/2020 COMMENT Abundant fungal hyphae are present in areas of abscess. Clinical correlation is suggested. GMS stain with matched control was used in the evaluation of this case. MICROSCOPIC DESCRIPTION Slides are reviewed. GROSS DESCRIPTION Received in fixative is one container labeled with the patient's name and designated subcutaneous tissue left leg. The specimen consists of multiple irregular fragments of light to dark maldonado soft tissue ranging in size from 0.8 to 4 cm in greatest dimension. Serial sections do not reveal mass lesions. Director Social Service sections are submitted in two cassettes. / AM:yefri 12/13/20 TC:2 CPT: 12845, 27449
[2020-12-10] MEDS: Potassium Chloride 10mEq/100mL 10 MEQ/100 ML IV.SOLN. 100 MEQ IV BOLUS ×2 (00:02→01:04)
[2020-12-10 00:06] LABS: Bedside Glucose 273 mg/dL (70-110)
[2020-12-10 00:06] LABS: Bedside Glucose 377 mg/dL (70-110)
[2020-12-10] MEDS: Dext 5%-0.45% NS 1,000 ML 150 ML IV (01:10)
[2020-12-10 01:11] LABS: Bedside Glucose 259 mg/dL (70-110)
[2020-12-10 01:11] LABS: Bedside Glucose 231 mg/dL (70-110)
[2020-12-10 03:16] LABS: Bedside Glucose 244 mg/dL (70-110)
[2020-12-10 03:20] LABS: Absolute Lymphocyte Count 0.83 X10^3/uL (0.83-4.51); Absolute Neutrophil Count 5.2 X10^3/uL (2.0-7.7); Basophil# 0.03 X10^3/uL; Basophil% 0.4 % (0-1); Eosinophils% 1.4 % (0-5); Hematocrit 34.1 % (40-54); Hemoglobin 12.6 g/dL (13.0-16.5); Lymphocyte # 0.83 X10^3/ul (4.0); Lymphocyte % 11.8 % (19-41); Mean Corpuscular Hgb 30.5 pg (27.0-32.0); Mean Corpuscular Volume 82.6 fL (80-94); Mean Platelet Vol. 8.9 fl (6.2-12.0); Monocyte# 0.82 X10^3/uL; Monocyte% 11.6 % (0-10); NRBC Flagged by Analyzer 0 % (0-5); Neutrophil # 5.17 X10^3/uL (2.7-7.7); Neutrophil % 73.2 % (47-70); Platelet Count 312 K/mm3 (150-450); RBC Distribution Width CV 11.9 % (11.6-14.6); RBC Distribution Width SD 35.2 fl (35.1-43.9); Red Blood Count 4.13 M/mm3 (4.6-6.2); White Blood Count 7.1 K/mm3 (4.4-11.0)
[2020-12-10 03:35] LABS: Anion Gap 9 (5-15); BUN 9 mg/dL (7-18); Calcium,Total 7.7 mg/dL (8.5-10.1); Chloride 108 mmol/L (98-107); EST Glomerular Filtration Rate 114 mL/min (>60); Est Glom Filt Rate - Afr Amer 138 mL/min (>60); Glucose 205 mg/dL (74-106); Potassium 3.3 mmol/L (3.5-5.1); Sodium Level 134 mmol/L (136-145)
[2020-12-10] MEDS: 0.9% Normal Saline 1,000 ML 125 ML IV ×2 (04:28→14:54)
[2020-12-10] MEDS: Cephalexin 500 MG Capsule PO (04:50)
[2020-12-10] MEDS: Acetaminophen 325 MG Tablet 650 MG PO (05:02)
--- NOTE | 2020-12-10 07:18 | PN_ITS ---
Reason for Visit: Left thigh abscess Diabetic ketoacidosis Subjective: Patient is a 19-year-old gentleman sent to the ED with hyperglycemia with glucose greater than 600. Patient was also found to have left thigh abscess. His initial assessment consistent with diabetic ketoacidosis admitted to intensive care unit for further management Objective: GENERAL: cooperative HEENT: Atraumatic; EYES; Anicteric, Normal Conjunctiva NECK; supple, normal thyroid, RESPIRATORY: Diminished to auscultation CARDIOVASCULAR: Regular S1 S2, GI: soft, normoactive bowel sounds, : No Renal angle tenderness; EXTREMITIES: Area of induration involving the posterior aspect of the left consistent with abscess MUSCULOSKELETAL: no muscle waisting NEURO: Awake; no lateralizing signs. SKIN: No Rash PSYCH; Flat affect Vitals/I&O's: Vital Signs Temp Pulse Resp BP Pulse Ox 98.1 F 109 H 18 124/71 H 100 12/10/20 05:05 12/10/20 05:05 12/10/20 05:05 12/10/20 05:05 12/10/20 05:05 Oxygen Delivery Method Room Air Weight: 71.9 kg Body Mass Index (BMI) 21.0 Finger Stick Blood Glucose 161 Intake and Output for Last 24 Hours 12/08/20 12/09/20 12/10/20 23:59 23:59 23:59 Intake Total 3419.76 / 3421.26 1522.0 / 1522.0 Output Total 4775 / 4775 1400 / 1400 Balance -1355.24 / -1353.74 122.0 / 122.0 Microbiology Past 72 Hours 12/09/20 16:13 Mucosa - Nose SARS-CoV-2 Antigen (Rapid) - Final Laboratory Results 12/09/20 16:00: Urine Color Straw, Urine Clarity Clear, Urine pH 5.0, Ur Specific [place] 1.015, Urine Protein 15 H, Urine Glucose (UA) 1000 H, Urine Ketones 150 H, Urine Occult Blood 10 H, Urine Nitrite Negative, Urine Bilirubin Negative, Urine Urobilinogen Normal, Ur Leukocyte Esterase Negative, Urine RBC 0 SEEN, Urine WBC 0 SEEN, Ur Squamous Epith Cells 0 SEEN, Urine Bacteria 0 SEEN, Urine Mucus 0 SEEN 12/09/20 16:19: WBC 11.6 H, RBC 5.56, Hgb 16.4, Hct 48.0, MCV 86.3, MCH 29.5, MCHC 34.2, RDW Std Deviation 38.0, RDW Coeff of Rabia 12.0, Plt Count 502 H, MPV 9.9, Immature Gran % (Auto) 2.400 H, Neut % (Auto) 84.4 H, Lymph % (Auto) 6.0 L, [place] % (Auto) 6.5, Eos % (Auto) 0.0, Baso % (Auto) 0.7, Absolute Neuts (auto) 9.8 H, Absolute Lymphs (auto) 0.70 L, Nucleated RBC % 0 12/09/20 16:19: Sodium 116 L*, Potassium 4.5, Chloride 84 L, Carbon Dioxide 9.0 L*, Anion Gap 23 H, BUN 15, Creatinine 1.53 H, Estim Creat Clear Calc 79.72, Est GFR (MDRD) Af Amer 75, Est GFR (MDRD) Non-Af 62, BUN/Creatinine Ratio 9.8 L, Glucose 1000 H*, Calcium 9.2, Total Bilirubin 1.10 H, AST 11 L, ALT 25, Alkaline Phosphatase 154 H, Total Protein 9.4 H, Albumin 4.7, Globulin 4.7 H, Albumin/Globulin Ratio 1.0 12/09/20 16:19: Lactic Acid 3.3 H* 12/09/20 16:19: Acetone Level MODERATE H 12/09/20 18:06: POC Glucose > 500 H* 12/09/20 19:02: POC Glucose > 500 H* 12/09/20 19:40: Sodium 130 L, Potassium 3.3 L, Chloride 101, Carbon Dioxide 12.0 L, Anion Gap 17 H, BUN 13, Creatinine 1.10, Estim Creat Clear Calc 110.46, Est GFR (MDRD) Af Amer 110, Est GFR (MDRD) Non-Af 91, BUN/Creatinine Ratio 11.8, Glucose 464 H*, Calcium 8.5 12/09/20 19:40: Phosphorus 2.3 L, Magnesium 1.7 12/09/20 20:01: POC Glucose 499 H* 12/09/20 20:40: Lactic Acid 2.0 12/09/20 21:00: POC Glucose 406 H 12/09/20 22:04: POC Glucose 377 H 12/09/20 23:05: POC Glucose 273 H 12/09/20 23:15: Sodium 133 L, Potassium 3.5, Chloride 106, Carbon Dioxide 16.0 L , Anion Gap 11, BUN 12, Creatinine 0.95, Estim Creat Clear Calc 127.90, Est GFR (MDRD) Af Amer 130, Est GFR (MDRD) Non-Af 107, BUN/Creatinine Ratio 12.6, Glucose 263 H, Calcium 8.5 12/10/20 00:06: POC Glucose 259 H 12/10/20 01:02: POC Glucose 231 H 12/10/20 01:54: POC Glucose 244 H 12/10/20 03:10: Sodium 134 L, Potassium 3.3 L, Chloride 108 H, Carbon Dioxide 17.0 L, Anion Gap 9, BUN 9, Creatinine 0.90, Estim Creat Clear Calc 135.00, Est GFR (MDRD) Af Amer 138, Est GFR (MDRD) Non-Af 114, BUN/Creatinine Ratio 10.0, Glucose 205 H, Calcium 7.7 L 12/10/20 03:10: WBC 7.1, RBC 4.13 L, Hgb 12.6 L, Hct 34.1 L, MCV 82.6, MCH 30.5, MCHC 37.0 H D, RDW Std Deviation 35.2, RDW Coeff of Rabia 11.9, Plt Count 312, MPV 8.9, Immature Gran % (Auto) 1.600 H, Neut % (Auto) 73.2 H, Lymph % (Auto) 11.8 L , [place] % (Auto) 11.6 H, Eos % (Auto) 1.4, Baso % (Auto) 0.4, Absolute Neuts (auto) 5.2, Absolute Lymphs (auto) 0.83, Nucleated RBC % 0 Current Medications Acetaminophen (Acetaminophen 325 Mg Tablet) 650 mg PO Q6H PRN PRN PRN Reason: Pain Score 1-10/Temp > 100.7 F Last Admin: 12/10/20 05:02 Dose: 650 mg Documented by: Albuterol Sulfate (Albuterol 2.5 Mg/3 Ml Vial.Neb.) 2.5 mg INHALATION Q4H PRN PRN PRN Reason: WHEEZING Budesonide (Budesonide Respules 0.5 Mg/2 Ml Ampul.Neb.) 0.5 mg INHALATION Q12H.RT LILLY Cephalexin (Cephalexin 500 Mg Capsule) 500 mg PO Q6 [facility] Last Admin: 12/10/20 04:50 Dose: 500 mg Documented by: Dextrose (Dextrose 50%-Water 25 Gm/50 Ml Disp.Syrin) 0 gm IV X1 PRN; Protocol PRN Reason: hYPOGLYCEMIA Sodium Chloride () 1,000 mls @ 125 mls/hr IV .Q8H LILLY Stop: 12/10/20 12:28 Last Admin: 12/10/20 04:28 Dose: 125 mls/hr Documented by: Insulin Glargine (Insulin Glargine 100 Units/Ml Pen) 15 units SC QHS LILLY Last Admin: 12/10/20 04:54 Dose: 15 u Documented by: Insulin Human Lispro (Insulin Lispro 100 Unit/Ml Insuln.Pen) 10 unit SC 0800,1200,1700 [facility] Insulin Human Lispro (Insulin Lispro 100 Unit/Ml Insuln.Pen) 0 unit SC ACHS LILLY; Protocol Melatonin (Melatonin 3 Mg Tablet) 3 mg PO QHS PRN PRN PRN Reason: INSOMNIA Ondansetron HCl (Ondansetron 4 Mg/2 Ml Vial) 4 mg IV Q8H PRN PRN PRN Reason: NAUSEA/VOMITING Pantoprazole Sodium (Pantoprazole Sodium 20 Mg Tablet) 20 mg PO DAILY [facility] Potassium Chloride (Potassium Chloride 20 Meq Tablet) 20 meq PO BIDCM [facility] Trimethoprim/Sulfamethoxazole (Smz/Tmp Ds Tablet) 1 tablet PO BIDCM [facility] STROKE Vital Signs/Narrative: Vital Signs Temp Pulse Resp BP BP Pulse Ox 12/10/20 05:05 98.1 F 109 H 18 124/71 H 100 12/10/20 04:00 97.6 F L 117 H 12 115/66 100 12/10/20 03:23 116 H Medical Necessity - Tobacco Use Smoking Status: Never smoker Tobacco Use: Non-smoker Assessment/Plan All Active Problems (Last Reviewed 10/27/20 @ 11:[address] Will Mason MD) Diabetic ketoacidosis associated with type 1 diabetes mellitus (Acute) RADHA (acute kidney injury) (Acute) Patient is a 19-year-old gentleman sent to the ED with hyperglycemia with glucose greater than 600. Patient was also found to have left thigh abscess. His initial assessment consistent with diabetic ketoacidosis admitted to intensive care unit for further management 1. Diabetic ketoacidosis ?Admitted to the intensive care unit managed with aggressive IV fluid resuscitation, IV insulin, correction of electrolytes and subsequent emergent monitoring with BMPs and adjustment of insulin dose 2. Severe sepsis secondary to left thigh abscess ?Suspected etiology of patient's DKA patient started on broad-spectrum antibiotic therapy (vancomycin and Zosyn) 3. Hyponatremia ?Secondary to pseudohyponatremia from patient high glucose do expect rapid improvement with correction of hyperglycemia 4. Hypokalemia ?Corrected per protocol 5. GERD ?Patient is on PPI did continue 6. Mild intermittent asthma ?Aerosol treatments as needed 7. DVT prophylaxis low risk ?Did encourage early ambulation Inpatient E&M: [id number] [facility] Hosp L3
[2020-12-10 07:36] LABS: Bedside Glucose 249 mg/dL (70-110)
[2020-12-10 07:36] LABS: Bedside Glucose 161 mg/dL (70-110)
[2020-12-10] MEDS: Budesonide Respules 0.5 MG/2 ML AMPUL.NEB. INHALATION (07:42)
--- NOTE | 2020-12-10 08:38 | NURSING ---
wound photo: left posterior thigh
[2020-12-10] MEDS: Insulin Lispro 100 UNIT/ML INSULN.PEN 10 UNIT SC ×2 (09:58→11:42)
[2020-12-10] MEDS: Insulin Lispro 100 UNIT/ML INSULN.PEN SC ×3 (09:59→23:00)
[2020-12-10] MEDS: Pantoprazole Sodium 20 MG Tablet PO (10:04)
[2020-12-10 11:40] LABS: Bedside Glucose 235 mg/dL (70-110)
[2020-12-10 11:40] LABS: Bedside Glucose 242 mg/dL (70-110)
[2020-12-10 11:40] LABS: Bedside Glucose 233 mg/dL (70-110)
[2020-12-10 11:45] LABS: Bedside Glucose 199 mg/dL (70-110)
--- NOTE | 2020-12-10 12:09 | NURSING ---
dr valero consulted to see for left posterior thigh wound called back ordered to prep pt for or, pt informed consent obtained
--- NOTE | 2020-12-10 12:32 | NURSING ---
informed patient dr valero would be taking to surgery for thigh wound, he did call his family to inform them
--- NOTE | 2020-12-10 13:11 | CASEMGMT ---
Social Work Referral Date: 12/10/20 Date of Assessment: 12/10/20 Reason for Consult: pt listed dx of psychosocial concerns Personal Status Mentation: A&O x3 Present during assessment: SW met with pt alone in his room. Pt is in bed but willing to sit up and talk with SW Living arrangements: Pt lives in a mobile home that has a ramp enterance. Lives with his grandfather, grandmother, mother, and younger brother. Pt states grandfather's health is compromised, mother does not work but grandmother does work. 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 Denies and concerns with living situation. ADLS: Pt is independent with all ADLS. Pt does not drive and states his grandmother transports him to work and medical appointments Medical History: Pt was diagnosed with Diabetes Type 1 in sixth grade. Pt denies any difficulty coping with this chronic illness throughout the years. Pt now has abscess on thigh which will require surgery. Pt also denies concern about this. Pt states he has a glucometer, test strips, syringes and insulin and that he checks his blood sugar levels 3-4 times a day and administers his insulin accordingly. Denies and problems with affording diabetic supplies or understanding how to care for chronic illness. PCP: Dr. Easton Butler Specialists: Dr. Ross Galindo, sees every 2-3 months. [facility]acy: [facility] Insurance: [facility], with prescription benefit Substance Abuse History Pt denies any drug, alcohol or tobacco use Mental Health History Pt denies any mental health diagnosis. Pt also denies any stressors in life that are difficult to cope with Resources Pt utilizes [facility] for insurance coverage. Denies use of any other community resources. At this time pt denies any family, social, medical or financial concerns. Pt stating that he feels safe in his home, not threatened by anyone, and that he has appropriate access to nursing home, food, water and basic needs. Pt denies any needs at this time. BRENT Frank
--- NOTE | 2020-12-10 13:54 | NURSING ---
report called to med-surg for transfer to room 305
[2020-12-10 14:14] LABS: ALB/GLOB Ratio 1.1 RATIO (0.9-2.4); AST(SGOT) 8 U/L (15-37); Alanine Aminotransfer ALT/SGPT 15 U/L (16-61); Albumin, Serum 3.2 g/dL (3.2-5.0); Alkaline Phosphatase 92 U/L (45-117); Protein, Total 6.2 g/dL (6.4-8.2)
[2020-12-10 16:20] LABS: Bedside Glucose 111 mg/dL (70-110)
--- NOTE | 2020-12-10 17:07 | PCM.CONS.B ---
- Consult Date of Consult: 12/10/20 - Reason for Consult Chief Complaint: Left lower extremity leg wound I was asked to see patient by hospitalist service. The patient is a 19 year old WM presents to the hospital with left leg wound. Noted for about a week. Seen in ED, less than a week ago for abscess at the site which underwent what sounds like stab incision. He was discharged on po antibiotics. He is non compliant with his diabetic medications and has had admissions in the past for DKA. He presents with worsening signs of his left leg wound and the wound care nurse recommended operative debridement. My evaluation of the patient is agreement with that of the wound care nurse. Patient denies TOB use, denies illicit drug use. Past Medical History Psychosocial problem (Chronic) Noncompliance with diabetes treatment (Chronic) Diabetes (Chronic) History of type 1 diabetes mellitus (Chronic) DKA, type 1 (Chronic) Asthma (Chronic) GERD (gastroesophageal reflux disease) (Chronic) Allergies No Known Allergies Allergy Medications: Albuterol Inhaler [Ventolin Hfa] 2 puff INHALATION Q4H PRN PRN Fluticasone 44 Mcg [Flovent 44 Mcg] 2 puff IH BID Ondansetron [Zofran Odt] 4 mg PO Q8H PRN PRN #10 tab Insulin Glargine [Lantus SoloStar 15 units SQ QHS Cephalexin [Keflex] 500 mg PO Q6 12/09/20 Insulin Lispro [Humalog Kwikpen] 10 unit SC TID Omeprazole [Prilosec] 20 mg PO DAILY PRN PRN Potassium Chloride [K-Dur] 20 meq PO BIDCM Smz/Tmp Ds [Bactrim Ds] 1 tab PO BID Past Surgical History: Hx of knee surgery -right Personal history: Smoking Status: Never smoker Tobacco Use: Non-smoker Alcohol: None Drugs: None - *Family History Maternal Family History: Family History (Last Reviewed 10/27/20 @ 11:[address] Will Mason MD) Other Asthma CVA (cerebral vascular accident) Diabetes Hypertension Thyroid disorder Review of Systems Constitutional: Denies: Chills, Fever, Weight Change HEENT: Denies: Head Aches, Sinus Congestion, Sinus Drainage Cardiovascular: Denies: Chest Pain, Palpitations Respiratory: Denies: Cough, Shortness of breath at rest, Sputum production Gastrointestinal: Denies: Abdominal Pain, Nausea, Vomiting Genitourinary: Denies: Dysuria Musculoskeletal: Denies: Joint Pain, Joint Tenderness Skin: Reports: Wounds - Left thigh wound. Denies: Rash Neurological: Denies: Numbness, Tingling, Focal weakness Psychiatric: Denies: Anxiety, Depression Hematologic/ Lymphatic: Denies: Easy Bruising, Easy Bleeding Physical Examination Vital Signs Temp Pulse Resp BP Pulse Ox 98 F 94 20 H 124/94 H 100 General: Alert, Oriented x3, Cooperative, No apparent distress HEENT: Atraumatic, PERRLA, EOMI, Normocephalic Oral: Dry Mucosa Neck: Supple, No JVD Lungs: Clear to auscultation, Normal air movement, No rhonchi, No wheeze, No rales Cardiovascular: Regular rate, Regular Rhythm, Normal S1, Normal S2, No murmurs Abdomen: Soft, Non Tender, Non-Distended, No Hepato-splenomegaly Extremities: No edema, Capillary Refill Less than 3 Seconds Skin: No rashes, No breakdown, Ulcer/ Wound - Left posterior thigh a 5 to 6cm purplish area with a 1 cm incision in the middle. No active drainage some surrounding redness with extensive induration Neurological: Neuro grossly intact, Sensory exam intact to light touch and pain Psych/Mental Status: Normal Affect, Appropriate Microbiology Past 72 Hours Impression: diabetic wound of left leg with eschar requiring debridement Discussion/Plan: I have discussed the above with the patient. The patient is a non compliant diabetic. I have offered the patient the procedure of wound debridement to enable to wound to heal better. He will also require a wound vac that can be placed at a future date. He will follow up [facility] [place]. I have explained the procedure to the patient. I have counseled the patient as to the risks of the procedure, including but not limited to: infection, bleeding, injury to any blood vessels/nerves, scar tissue, continued infections, complications of anesthesia, - . the patient understands. I have answered all questions to the patient?s satisfaction and the patient has no further questions. I spoke to patient's grandfather and informed him of above and he acknowledges this.
[2020-12-10 17:09] LABS: Hemoglobin A1c > 16.0 % (3.8-5.6)
--- NOTE | 2020-12-10 17:20 | NURSING ---
to o.r. via bed for wound debridement
[2020-12-10] MEDS: Lidocaine 1% (30 ml sdv) 30 ML Vial (17:37)
[2020-12-10] MEDS: Bupiv/Epi 0.25% 30 ML Vial (17:37)
--- NOTE | 2020-12-10 18:03 | PCM.OPRPT ---
Report of Operation Date of Procedure: 12/10/20 Pre-Operative Diagnosis: necrotic wound with eschar, poorly controlled diabetes Post-Operative Diagnosis: same Surgery/Procedure Performed:: debridement of skin and subcutaneous tissue 12 x 10 cm with depth to level of fascia Description of Surgical Findings:: necrotic wound with about 4 x 6 cm eschar, the subcutaneous tissue and necrotic skin extended further with purulent drainage, tissue sent for culture and pathology Anesthesiologist: John Marmolejo Specimen's removed: skin and subcutaneous tissues Estimated Blood Loss (mL): 30 ml Fluids Replaced: 400 ml RL Description of Procedure: After informed consent was given, the patient was brought to the operating room and placed in the supine position. Appropriate time out protocol was followed. IV conscious sedation was then administered by the anesthesia provider. The patient?s left lower thigh was then prepped with a surgical skin preparation and sterile surgical drapes were placed. The skin and subcutaneous tissues in and around the lesion were then infiltrated with 1% xylocaine with epinephrine. A skin incision around the skin eschar which was about 4 x 6 cm. The patient was noted to have thrombosed vessels, devitalized subcutaneous fatty tissues and devitalized skin and purulent fluid. This extended to the margins and therefore more skin and subcutaneous tissue was excised until normal healthy appearing tissue was noted. This left a skin defect of 10 cm x 12 cm. Sharp debridement continued of the subcutaneous tissues down to the level of the fascia. The fascia appeared viable. Any hemorrhage was controlled with electrocautery. The wound was irrigated copiously with hydrogen peroxide. The wound was then packed with dilute betadyne soaked kerlex gauze. Dry gauze dressing was placed over the wound and it was secured with an Carlos bandage. The patient tolerated the procedure well and was brought to the Recovery Room in stable condition. - Complications none noted - Admit VTE Documentation VTE Present on Admission: Yes VTE Mechan Device Prophylaxis: SCD's - right leg only, due to left leg requiring surgery
[2020-12-10 18:16] LABS: Bedside Glucose 172 mg/dL (70-110)
[2020-12-10] MEDS: HYDROcodone Bitartrate/Apap 5/325 Tablet PO (22:57)
[2020-12-10 23:10] LABS: Bedside Glucose 369 mg/dL (70-110)
[2020-12-11 03:50] VITALS: BP 115/68; PULSE 92; RESP 16; TEMP 37; O2SAT 100
[2020-12-11] MEDS: HYDROcodone Bitartrate/Apap 5/325 Tablet PO ×2 (03:56→08:59)
[2020-12-11] MEDS: Budesonide Respules 0.5 MG/2 ML AMPUL.NEB. INHALATION ×2 (06:59→20:00)
[2020-12-11 07:00] VITALS: PULSE 94; RESP 18
--- NOTE | 2020-12-11 07:40 | PCM.PN.HOSP ---
Reason for Visit: Left thigh abscess Diabetic ketoacidosis Subjective: 12/11/2020 order was placed to general surgery patient was seen by Dr. Ciera Hook who did perform debridement of skin and subcutaneous tissue 12 x 10 cm with depth to level of fascia on 12/10/2020. Repeat cultures sent. Blood glucose not well controlled adjusted insulin dose Objective: GENERAL: cooperative HEENT: Atraumatic; EYES; Anicteric, Normal Conjunctiva NECK; supple, normal thyroid, RESPIRATORY: Diminished to auscultation CARDIOVASCULAR: Regular S1 S2, GI: soft, normoactive bowel sounds, : No Renal angle tenderness; EXTREMITIES: Left thigh in surgical dressing MUSCULOSKELETAL: no muscle waisting NEURO: Awake; no lateralizing signs. SKIN: No Rash PSYCH; Flat affect Vitals/I&O's: Vital Signs Temp Pulse Resp BP Pulse Ox 98.6 F 94 18 115/68 100 12/11/20 03:50 12/11/20 07:00 12/11/20 07:00 12/11/20 03:50 12/11/20 03:50 Oxygen Flow Rate (L/min) 6 Oxygen Delivery Method Room Air Weight: 72.4 kg Body Mass Index (BMI) 21.0 Finger Stick Blood Glucose 172 Intake and Output for Last 24 Hours 12/09/20 12/10/20 12/11/20 23:59 23:59 23:59 Intake Total 3419.76 / 3421.26 3794.0 / 3794.0 792.25 / 792.25 Output Total 4775 / 4775 2550 / 2550 500 / 500 Balance -1355.24 / -1353.74 1244.0 / 1244.0 292.25 / 292.25 Microbiology Past 72 Hours 12/09/20 17:40 Wound - Leg, Left Gram Stain - Final 12/09/20 17:40 Wound - Leg, Left Wound Culture - Preliminary Mixed Gram Pos & Gram Neg Org 12/09/20 16:13 Mucosa - Nose SARS-CoV-2 Antigen (Rapid) - Final Laboratory Results 12/10/20 03:10: Sodium 134 L, Potassium 3.3 L, Chloride 108 H, Carbon Dioxide 17.0 L, Anion Gap 9, BUN 9, Creatinine 0.90, Estim Creat Clear Calc 135.00, Est GFR (MDRD) Af Amer 138, Est GFR (MDRD) Non-Af 114, BUN/Creatinine Ratio 10.0, Glucose 205 H, Calcium 7.7 L, Total Bilirubin 0.70, AST 8 L, ALT 15 L, Alkaline Phosphatase 92, Total Protein 6.2 L, Albumin 3.2, Globulin 3.0, Albumin/Globulin Ratio 1.1 12/10/20 03:11: POC Glucose 235 H 12/10/20 04:22: POC Glucose 242 H 12/10/20 04:53: POC Glucose 233 H 12/10/20 08:10: Hemoglobin A1c > 16.0 H 12/10/20 11:40: POC Glucose 199 H 12/10/20 16:17: POC Glucose 111 H 12/10/20 18:09: POC Glucose 172 H 12/10/20 22:33: POC Glucose 369 H Current Medications Acetaminophen (Acetaminophen 325 Mg Tablet) 650 mg PO Q6H PRN PRN PRN Reason: Pain Score 1-10/Temp > 100.7 F Last Admin: 12/10/20 05:02 Dose: 650 mg Documented by: Hydrocodone Bitart/Acetaminophen (Hydrocodone Bitartrate/Apap 5/325 Tablet) 1 tablet PO Q4H PRN PRN PRN Reason: Pain Score 4-10 Last Admin: 12/11/20 03:56 Dose: 1 tablet Documented by: Albuterol Sulfate (Albuterol 2.5 Mg/3 Ml Vial.Neb.) 2.5 mg INHALATION Q4H PRN PRN PRN Reason: WHEEZING Budesonide (Budesonide Respules 0.5 Mg/2 Ml Ampul.Neb.) 0.5 mg INHALATION Q12H.RT [facility] Last Admin: 12/11/20 06:59 Dose: 0.5 mg Documented by: Dextrose (Dextrose 50%-Water 25 Gm/50 Ml Disp.Syrin) 0 gm IV X1 PRN; Protocol PRN Reason: hYPOGLYCEMIA Piperacillin Sod/Tazobactam (Sod 3.375 gm/ Sodium Chloride) 50 mls @ 12.5 mls/hr IV Q8 [facility] Last Admin: 12/11/20 05:47 Dose: 12.5 mls/hr Documented by: Insulin Glargine (Insulin Glargine 100 Units/Ml Pen) 15 units SC QHS [facility] Last Admin: 12/10/20 22:59 Dose: 15 u Documented by: Insulin Human Lispro (Insulin Lispro 100 Unit/Ml Insuln.Pen) 10 unit SC 0800,1200,1700 [facility] Last Admin: 12/10/20 16:43 Dose: Not Given Documented by: Insulin Human Lispro (Insulin Lispro 100 Unit/Ml Insuln.Pen) 0 unit SC ACHS [facility]; Protocol Last Admin: 12/10/20 23:00 Dose: 8 u Documented by: L-Arginine/L-Glutamine/Calcium [facility] ([facility]) [facility] Last Admin: 12/10/20 15:03 Dose: Not Given Documented by: Melatonin (Melatonin 3 Mg Tablet) 3 mg PO QHS PRN PRN PRN Reason: INSOMNIA Ondansetron HCl (Ondansetron 4 Mg/2 Ml Vial) 4 mg IV Q8H PRN PRN PRN Reason: NAUSEA/VOMITING Pantoprazole Sodium (Pantoprazole Sodium 20 Mg Tablet) 20 mg PO DAILY [facility] Last Admin: 12/10/20 10:04 Dose: 20 mg Documented by: Potassium Chloride (Potassium Chloride 20 Meq Tablet) 20 meq PO BIDCM [facility] Last Admin: 12/10/20 16:43 Dose: Not Given Documented by: STROKE Vital Signs/Narrative: Vital Signs Temp Pulse Resp BP Pulse Ox 12/11/20 07:00 94 18 12/11/20 03:50 98.6 F 92 16 115/68 100 Medical Necessity - Tobacco Use Smoking Status: Never smoker Tobacco Use: Non-smoker Assessment/Plan All Active Problems (Last Reviewed 10/27/20 @ 11:[address] Will Mason MD) Diabetic ketoacidosis associated with type 1 diabetes mellitus (Acute) RADHA (acute kidney injury) (Acute) Patient is a 19-year-old gentleman sent to the ED with hyperglycemia with glucose greater than 600. Patient was also found to have left thigh abscess. His initial assessment consistent with diabetic ketoacidosis admitted to intensive care unit for further management 1. Diabetic ketoacidosis ?Admitted to the intensive care unit managed with aggressive IV fluid resuscitation, IV insulin, correction of electrolytes and subsequent emergent monitoring with BMPs and adjustment of insulin dose -12/11/2020; DKA resolved patient initiated on his long-acting insulin dose starting 12/10/2020. Blood glucose this morning not well controlled subsequent adjustment to patient insulin regimen made. 2. Severe sepsis secondary to left thigh abscess ?Suspected etiology of patient's DKA patient started on broad-spectrum antibiotic therapy (vancomycin and Zosyn) -12/11/2020 order was placed to general surgery patient was seen by Dr. Ciera Hook who did perform debridement of skin and subcutaneous tissue 12 x 10 cm with depth to level of fascia on 12/10/2020. Repeat cultures sent 3. Hyponatremia ?Secondary to pseudohyponatremia from patient high glucose do expect rapid improvement with correction of hyperglycemia 4. Hypokalemia ?Corrected per protocol 5. GERD ?Patient is on PPI did continue 6. Mild intermittent asthma ?Aerosol treatments as needed 7. DVT prophylaxis low risk ?Did encourage early ambulation Inpatient E&M: [id number] [facility] H[facility] L3
[2020-12-11 07:41] VITALS: BP 106/50; PULSE 81; RESP 16; TEMP 36.6; O2SAT 100
[2020-12-11 07:41] LABS: Bedside Glucose 270 mg/dL (70-110)
[2020-12-11 07:48] LABS: Hematocrit 34.9 % (40-54); Hemoglobin 12.6 g/dL (13.0-16.5); Mean Corp Hgb Conc 36.1 g/dL (32-36); Mean Corpuscular Hgb 30.3 pg (27.0-32.0); Mean Corpuscular Volume 83.9 fL (80-94); Mean Platelet Vol. 9.5 fl (6.2-12.0); Platelet Count 306 K/mm3 (150-450); RBC Distribution Width CV 11.9 % (11.6-14.6); RBC Distribution Width SD 35.8 fl (35.1-43.9); Red Blood Count 4.16 M/mm3 (4.6-6.2); White Blood Count 3.9 K/mm3 (4.4-11.0)
[2020-12-11 08:10] LABS: Anion Gap 7 (5-15); BUN 6 mg/dL (7-18); BUN/Creat Ratio 9.8 RATIO (10-20); Calcium,Total 8.5 mg/dL (8.5-10.1); Chloride 105 mmol/L (98-107); Creatinine, Serum 0.62 mg/dL (0.70-1.30); EST Glomerular Filtration Rate 178 mL/min (>60); Est Glom Filt Rate - Afr Amer 215 mL/min (>60); Estimated Creatinine Clearance 196.25 ml/min; Glucose 279 mg/dL (74-106); Magnesium 1.9 mg/dL (1.6-2.6); Potassium 2.9 mmol/L (3.5-5.1); Sodium Level 138 mmol/L (136-145)
[2020-12-11] MEDS: Insulin Lispro 100 UNIT/ML INSULN.PEN 10 UNIT SC ×3 (08:59→17:22)
[2020-12-11] MEDS: Juven (unflavored) Packet 1 PACKET PO ×2 (08:59→16:12)
[2020-12-11] MEDS: Pantoprazole Sodium 20 MG Tablet PO (08:59)
[2020-12-11] MEDS: Insulin Lispro 100 UNIT/ML INSULN.PEN SC ×4 (09:00→22:17)
[2020-12-11 11:21] LABS: Bedside Glucose 240 mg/dL (70-110)
--- NOTE | 2020-12-11 12:21 | PCM.PN.SRG ---
Subjective: Patient tolerating discomfort, ambulating somewhat - Physical Exam Vitals/I&O's: Vital Signs Temp Pulse Resp BP Pulse Ox 97.8 F 81 16 106/50 L 100 12/11/20 07:41 12/11/20 07:41 12/11/20 07:41 12/11/20 07:41 12/11/20 07:41 Oxygen Flow Rate (L/min) 6 Oxygen Delivery Method Room Air Weight: 72.4 kg Body Mass Index (BMI) 21.0 Finger Stick Blood Glucose 172 Intake and Output for Last 24 Hours 12/09/20 12/10/20 12/11/20 23:59 23:59 23:59 Intake Total 3419.76 / 3421.26 3794.0 / 3794.0 792.25 / 792.25 Output Total 4775 / 4775 2550 / 2550 500 / 500 Balance -1355.24 / -1353.74 1244.0 / 1244.0 292.25 / 292.25 General: Alert, Oriented x3 HEENT: Atraumatic Oral: Moist Mucosa Neck: Supple Lungs: Normal air movement Skin: - - dressing intact minimal seepage Microbiology Past 72 Hours 12/10/20 17:52 Wound - Other Wound Culture - Preliminary Gram negative jo ann 12/09/20 17:40 Wound - Leg, Left Gram Stain - Final 12/09/20 17:40 Wound - Leg, Left Wound Culture - 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 Gram negative jo ann Gram positive organism 12/09/20 16:13 Mucosa - Nose SARS-CoV-2 Antigen (Rapid) - Final Laboratory Results 12/10/20 03:10: Sodium 134 L, Potassium 3.3 L, Chloride 108 H, Carbon Dioxide 17.0 L, Anion Gap 9, BUN 9, Creatinine 0.90, Estim Creat Clear Calc 135.00, Est GFR (MDRD) Af Amer 138, Est GFR (MDRD) Non-Af 114, BUN/Creatinine Ratio 10.0, Glucose 205 H, Calcium 7.7 L, Total Bilirubin 0.70, AST 8 L, ALT 15 L, Alkaline Phosphatase 92, Total Protein 6.2 L, Albumin 3.2, Globulin 3.0, Albumin/Globulin Ratio 1.1 12/10/20 08:10: Hemoglobin A1c > 16.0 H 12/10/20 16:17: POC Glucose 111 H 12/10/20 18:09: POC Glucose 172 H 12/10/20 22:33: POC Glucose 369 H 12/11/20 06:45: WBC 3.9 L, RBC 4.16 L, Hgb 12.6 L, Hct 34.9 L, MCV 83.9, MCH 30.3, MCHC 36.1 H, RDW Std Deviation 35.8, RDW Coeff of Rabia 11.9, Plt Count 306, MPV 9.5 12/11/20 06:45: Sodium 138, Potassium 2.9 L, Chloride 105, Carbon Dioxide 26.0, Anion Gap 7, BUN 6 L, Creatinine 0.62 L, Estim Creat Clear Calc 196.25, Est GFR (MDRD) Af Amer 215, Est GFR (MDRD) Non-Af 178, BUN/Creatinine Ratio 9.8 L, Glucose 279 H, Calcium 8.5, Magnesium 1.9 12/11/20 07:35: POC Glucose 270 H 12/11/20 11:13: POC Glucose 240 H Current Medications Acetaminophen (Acetaminophen 325 Mg Tablet) 650 mg PO Q6H PRN PRN PRN Reason: Pain Score 1-10/Temp > 100.7 F Last Admin: 12/10/20 05:02 Dose: 650 mg Documented by: Hydrocodone Bitart/Acetaminophen (Hydrocodone Bitartrate/Apap 5/325 Tablet) 1 tablet PO Q4H PRN PRN PRN Reason: Pain Score 4-10 Last Admin: 12/11/20 08:59 Dose: 1 tablet Documented by: Albuterol Sulfate (Albuterol 2.5 Mg/3 Ml Vial.Neb.) 2.5 mg INHALATION Q4H PRN PRN PRN Reason: WHEEZING Budesonide (Budesonide Respules 0.5 Mg/2 Ml Ampul.Neb.) 0.5 mg INHALATION Q12H.RT [facility] Last Admin: 12/11/20 06:59 Dose: 0.5 mg Documented by: Dextrose (Dextrose 50%-Water 25 Gm/50 Ml Disp.Syrin) 0 gm IV X1 PRN; Protocol PRN Reason: hYPOGLYCEMIA Piperacillin Sod/Tazobactam (Sod 3.375 gm/ Sodium Chloride) 50 mls @ 12.5 mls/hr IV Q8 [facility] Last Admin: 12/11/20 05:47 Dose: 12.5 mls/hr Documented by: Insulin Glargine (Insulin Glargine 100 Units/Ml Pen) 15 units SC BID [facility] Last Admin: 12/11/20 11:14 Dose: 15 u Documented by: Insulin Human Lispro (Insulin Lispro 100 Unit/Ml Insuln.Pen) 10 unit SC 0800,1200,1700 [facility] Last Admin: 12/11/20 08:59 Dose: 10 u Documented by: Insulin Human Lispro (Insulin Lispro 100 Unit/Ml Insuln.Pen) 0 unit SC ACHS [facility]; Protocol Last Admin: 12/11/20 09:00 Dose: 6 u Documented by: L-Arginine/L-Glutamine/Calcium HMB (Chase (Unflavored) Packet) 1 packet PO BIDCM [facility] Last Admin: 12/11/20 08:59 Dose: 1 packet Documented by: Melatonin (Melatonin 3 Mg Tablet) 3 mg PO QHS PRN PRN PRN Reason: INSOMNIA Ondansetron HCl (Ondansetron 4 Mg/2 Ml Vial) 4 mg IV Q8H PRN PRN PRN Reason: NAUSEA/VOMITING Pantoprazole Sodium (Pantoprazole Sodium 20 Mg Tablet) 20 mg PO DAILY [facility] Last Admin: 12/11/20 08:59 Dose: 20 mg Documented by: Potassium Chloride (Potassium Chloride 20 Meq Tablet) 40 meq PO BIDCM [facility] Medical Necessity - Tobacco Use Smoking Status: Never smoker Tobacco Use: Non-smoker Assessment/Plan All Active Problems (Last Reviewed 10/27/20 @ 11:[address] Will Mason MD) Diabetic ketoacidosis associated with type 1 diabetes mellitus (Acute) RADHA (acute kidney injury) (Acute) POD#1 - wound debridement Plan: care to be continued as per Svetlana, can change dressing in 1-3 days Application of wound vac per Svetlana I will sign off this case
[2020-12-11 13:45] VITALS: BP 108/51; PULSE 107; RESP 16; TEMP 37.2; O2SAT 99
[2020-12-11 16:41] LABS: Bedside Glucose 245 mg/dL (70-110)
[2020-12-11 19:50] VITALS: BP 98/63; PULSE 100; RESP 16; TEMP 36.9; O2SAT 98
[2020-12-11 20:00] VITALS: PULSE 98; RESP 16
[2020-12-11 22:26] LABS: Bedside Glucose 221 mg/dL (70-110)
[2020-12-12 02:05] VITALS: BP 112/67; PULSE 80; RESP 14; TEMP 36.9; O2SAT 96
[2020-12-12 04:50] LABS: Hematocrit 34.1 % (40-54); Hemoglobin 12.3 g/dL (13.0-16.5); Mean Corp Hgb Conc 36.1 g/dL (32-36); Mean Corpuscular Hgb 30.1 pg (27.0-32.0); Mean Corpuscular Volume 83.6 fL (80-94); Mean Platelet Vol. 9.3 fl (6.2-12.0); Platelet Count 279 K/mm3 (150-450); RBC Distribution Width CV 11.5 % (11.6-14.6); RBC Distribution Width SD 35.3 fl (35.1-43.9); Red Blood Count 4.08 M/mm3 (4.6-6.2); White Blood Count 3.7 K/mm3 (4.4-11.0)
[2020-12-12 05:11] LABS: Anion Gap 6 (5-15); BUN 13 mg/dL (7-18); Calcium,Total 8.7 mg/dL (8.5-10.1); Chloride 105 mmol/L (98-107); Creatinine, Serum 0.45 mg/dL (0.70-1.30); EST Glomerular Filtration Rate 256 mL/min (>60); Est Glom Filt Rate - Afr Amer 310 mL/min (>60); Estimated Creatinine Clearance 270.38 ml/min; Glucose 142 mg/dL (74-106); Potassium 3.1 mmol/L (3.5-5.1); Sodium Level 140 mmol/L (136-145)
--- NOTE | 2020-12-12 08:13 | PCM.PN.HOSP ---
Reason for Visit: Left thigh abscess Diabetic ketoacidosis Subjective: 12/11/2020 order was placed to general surgery patient was seen by Dr. Ciera Hook who did perform debridement of skin and subcutaneous tissue 12 x 10 cm with depth to level of fascia on 12/10/2020. Repeat cultures sent. Blood glucose not well controlled adjusted insulin dose 12/12/2020; patient seen pain control. Culture results as below. Awaiting final sensitivities. Consult was also placed to wound care nurse for dressing changes. Microbiology 12/10/20 17:52 Gram Stain - Final Wound - Other Wound Culture - Preliminary Gram negative jo ann Gram negative jo ann#2 Gram positive organism 12/09/20 17:40 Gram Stain - Final Wound - Leg, Left Wound Culture - Final Klebsiella pneumoniae sp pneum Enterobacter cloacae complex Staphylococcus epidermidis 12/09/20 16:26 Blood Culture - Preliminary Blood Culture (Wb) - Left Hand No growth in 48 hours. 12/09/20 16:19 Blood Culture - Preliminary Blood Culture (Wb) - Anticubital Left No growth in 48 hours. Objective: GENERAL: cooperative HEENT: Atraumatic; EYES; Anicteric, Normal Conjunctiva NECK; supple, normal thyroid, RESPIRATORY: Diminished to auscultation CARDIOVASCULAR: Regular S1 S2, GI: soft, normoactive bowel sounds, : No Renal angle tenderness; EXTREMITIES: Left thigh in surgical dressing MUSCULOSKELETAL: no muscle waisting NEURO: Awake; no lateralizing signs. SKIN: No Rash PSYCH; Flat affect Vitals/I&O's: Vital Signs Temp Pulse Resp BP Pulse Ox 98.4 F 80 14 112/67 96 12/12/20 02:05 12/12/20 02:05 12/12/20 02:05 12/12/20 02:05 12/12/20 02:05 Oxygen Flow Rate (L/min) 6 Oxygen Delivery Method Room Air Weight: 72.4 kg Body Mass Index (BMI) 21.0 Finger Stick Blood Glucose 172 Intake and Output for Last 24 Hours 12/10/20 12/11/20 12/12/20 23:59 23:59 23:59 Intake Total 3794.0 / 3794.0 892.25 / 892.25 50 / 50 Output Total 2550 / 2550 3075 / 3075 1300 / 1300 Balance 1244.0 / 1244.0 -2182.75 / -2182.75 -1250 / -1250 Microbiology Past 72 Hours 12/09/20 17:40 Wound - Leg, Left Gram Stain - Final 12/09/20 17:40 Wound - Leg, Left Wound Culture - Final Klebsiella pneumoniae sp pneum Enterobacter cloacae complex Staphylococcus epidermidis 12/09/20 16:26 Blood Culture (Wb) - Left Hand Blood Culture - Preliminary No growth in 48 hours. 12/09/20 16:19 Blood Culture (Wb) - Anticubital Left Blood Culture - Preliminary No growth in 48 hours. 12/10/20 17:52 Wound - Other Gram Stain - Final 12/10/20 17:52 Wound - Other Wound Culture - Preliminary Gram negative jo ann 12/09/20 16:13 Mucosa - Nose SARS-CoV-2 Antigen (Rapid) - Final Laboratory Results 12/11/20 11:13: POC Glucose 240 H 12/11/20 16:05: POC Glucose 245 H 12/11/20 22:15: POC Glucose 221 H 12/12/20 04:13: WBC 3.7 L, RBC 4.08 L, Hgb 12.3 L, Hct 34.1 L, MCV 83.6, MCH 30.1, MCHC 36.1 H, RDW Std Deviation 35.3, RDW Coeff of Rabia 11.5 L, Plt Count 279, MPV 9.3 12/12/20 04:13: Sodium 140, Potassium 3.1 L, Chloride 105, Carbon Dioxide 29.0, Anion Gap 6, BUN 13, Creatinine 0.45 L, Estim Creat Clear Calc 270.38, Est GFR (MDRD) Af Amer 310, Est GFR (MDRD) Non-Af 256, BUN/Creatinine Ratio 29.0 H, Glucose 142 H, Calcium 8.7 Current Medications Acetaminophen (Acetaminophen 325 Mg Tablet) 650 mg PO Q6H PRN PRN PRN Reason: Pain Score 1-10/Temp > 100.7 F Last Admin: 12/10/20 05:02 Dose: 650 mg Documented by: Hydrocodone Bitart/Acetaminophen (Hydrocodone Bitartrate/Apap 5/325 Tablet) 1 tablet PO Q4H PRN PRN PRN Reason: Pain Score 4-10 Last Admin: 12/11/20 08:59 Dose: 1 tablet Documented by: Albuterol Sulfate (Albuterol 2.5 Mg/3 Ml Vial.Neb.) 2.5 mg INHALATION Q4H PRN PRN PRN Reason: WHEEZING Budesonide (Budesonide Respules 0.5 Mg/2 Ml Ampul.Neb.) 0.5 mg INHALATION Q12H.RT [facility] Last Admin: 12/11/20 20:00 Dose: 0.5 mg Documented by: Dextrose (Dextrose 50%-Water 25 Gm/50 Ml Disp.Syrin) 0 gm IV X1 PRN; Protocol PRN Reason: hYPOGLYCEMIA Piperacillin Sod/Tazobactam (Sod 3.375 gm/ Sodium Chloride) 50 mls @ 12.5 mls/hr IV Q8 [facility] Last Admin: 12/12/20 05:09 Dose: 12.5 mls/hr Documented by: Insulin Glargine (Insulin Glargine 100 Units/Ml Pen) 15 units SC BID [facility] Last Admin: 12/11/20 22:16 Dose: 15 u Documented by: Insulin Human Lispro (Insulin Lispro 100 Unit/Ml Insuln.Pen) 10 unit SC 0800,1200,1700 [facility] Last Admin: 12/11/20 17:22 Dose: 10 u Documented by: Insulin Human Lispro (Insulin Lispro 100 Unit/Ml Insuln.Pen) 0 unit SC ACHS [facility]; Protocol Last Admin: 12/11/20 22:17 Dose: 4 u Documented by: L-Arginine/L-Glutamine/Calcium HMB (Chase (Unflavored) Packet) 1 packet PO BIDCM [facility] Last Admin: 12/11/20 16:12 Dose: 1 packet Documented by: Melatonin (Melatonin 3 Mg Tablet) 3 mg PO QHS PRN PRN PRN Reason: INSOMNIA Ondansetron HCl (Ondansetron 4 Mg/2 Ml Vial) 4 mg IV Q8H PRN PRN PRN Reason: NAUSEA/VOMITING Pantoprazole Sodium (Pantoprazole Sodium 20 Mg Tablet) 20 mg PO DAILY [facility] Last Admin: 12/11/20 08:59 Dose: 20 mg Documented by: Potassium Chloride (Potassium Chloride 20 Meq Tablet) 40 meq PO BIDCM [facility] Last Admin: 12/11/20 16:12 Dose: 40 meq Documented by: Medical Necessity - Tobacco Use Smoking Status: Never smoker Tobacco Use: Non-smoker Assessment/Plan All Active Problems (Last Reviewed 10/27/20 @ 11:[address] Will Mason MD) Diabetic ketoacidosis associated with type 1 diabetes mellitus (Acute) RADHA (acute kidney injury) (Acute) Patient is a 19-year-old gentleman sent to the ED with hyperglycemia with glucose greater than 600. Patient was also found to have left thigh abscess. His initial assessment consistent with diabetic ketoacidosis admitted to intensive care unit for further management 1. Diabetic ketoacidosis ?Admitted to the intensive care unit managed with aggressive IV fluid resuscitation, IV insulin, correction of electrolytes and subsequent emergent monitoring with BMPs and adjustment of insulin dose -12/11/2020; DKA resolved patient initiated on his long-acting insulin dose starting 12/10/2020. Blood glucose this morning not well controlled subsequent adjustment to patient insulin regimen made. 12/12/2020; blood glucose levels remain controlled 2. Severe sepsis secondary to left thigh abscess ?Suspected etiology of patient's DKA patient started on broad-spectrum antibiotic therapy (vancomycin and Zosyn) -12/11/2020 order was placed to general surgery patient was seen by Dr. Ciera Hook who did perform debridement of skin and subcutaneous tissue 12 x 10 cm with depth to level of fascia on 12/10/2020. Repeat cultures sent Microbiology 12/10/20 17:52 Gram Stain - Final Wound - Other Wound Culture - Preliminary Gram negative jo ann Gram negative jo ann#2 Gram positive organism 12/09/20 17:40 Gram Stain - Final Wound - Leg, Left Wound Culture - Final Klebsiella pneumoniae sp pneum Enterobacter cloacae complex Staphylococcus epidermidis 12/09/20 16:26 Blood Culture - Preliminary Blood Culture (Wb) - Left Hand No growth in 48 hours. 12/09/20 16:19 Blood Culture - Preliminary Blood Culture (Wb) - Anticubital Left No growth in 48 hours. 12/12/2020 patient cultures are as above awaiting final identification and sensitivities 3. Hyponatremia ?Secondary to pseudohyponatremia from patient high glucose do expect rapid improvement with correction of hyperglycemia -Resolved 4. Hypokalemia ?Corrected per protocol 5. GERD ?Patient is on PPI did continue 6. Mild intermittent asthma ?Aerosol treatments as needed 7. DVT prophylaxis low risk ?Did encourage early ambulation Inpatient E&M: [id number] [facility] Hosp L2
[2020-12-12 08:26] LABS: Bedside Glucose 196 mg/dL (70-110)
[2020-12-12 08:45] VITALS: BP 110/65; PULSE 99; RESP 16; TEMP 36.8; O2SAT 100
[2020-12-12] MEDS: Insulin Lispro 100 UNIT/ML INSULN.PEN SC ×4 (08:53→21:26)
[2020-12-12] MEDS: Pantoprazole Sodium 20 MG Tablet PO (08:53)
[2020-12-12] MEDS: Insulin Lispro 100 UNIT/ML INSULN.PEN 10 UNIT SC ×3 (08:53→17:08)
[2020-12-12] MEDS: Juven (unflavored) Packet 1 PACKET PO ×2 (08:53→17:07)
[2020-12-12] MEDS: HYDROcodone Bitartrate/Apap 5/325 Tablet PO (10:16)
--- NOTE | 2020-12-12 11:06 | PN.SURG_ITS ---
Subjective: Patient with appropriate tenderness in the area of the wound - Physical Exam Vitals/I&O's: Vital Signs Temp Pulse Resp BP Pulse Ox 98.2 F 99 16 110/65 100 12/12/20 08:45 12/12/20 08:45 12/12/20 08:45 12/12/20 08:45 12/12/20 08:45 Oxygen Flow Rate (L/min) 6 Oxygen Delivery Method Room Air Weight: 72.4 kg Body Mass Index (BMI) 21.0 Finger Stick Blood Glucose 172 Intake and Output for Last 24 Hours 12/10/20 12/11/20 12/12/20 23:59 23:59 23:59 Intake Total 3794.0 / 3794.0 892.25 / 892.25 100 / 100 Output Total 2550 / 2550 3075 / 3075 1300 / 1300 Balance 1244.0 / 1244.0 -2182.75 / -2182.75 -1200 / -1200 General: Alert, Oriented x3 Oral: Moist Mucosa Neck: Supple Lungs: Normal air movement Extremities: - - wound with good granulation tissue, may need further debridement on distal aspect, dressing replaced with gauze packing. Microbiology Past 72 Hours 12/10/20 17:52 Wound - Other Gram Stain - Final 12/10/20 17:52 Wound - Other Wound Culture - Preliminary Gram negative jo ann Gram negative jo ann#2 Gram positive organism 12/09/20 17:40 Wound - Leg, Left Gram Stain - Final 12/09/20 17:40 Wound - Leg, Left Wound Culture - Final Klebsiella pneumoniae sp pneum Enterobacter cloacae complex Staphylococcus epidermidis 12/09/20 16:26 Blood Culture (Wb) - Left Hand Blood Culture - Preliminary No growth in 48 hours. 12/09/20 16:19 Blood Culture (Wb) - Anticubital Left Blood Culture - Preliminary No growth in 48 hours. 12/09/20 16:13 Mucosa - Nose SARS-CoV-2 Antigen (Rapid) - Final Laboratory Results 12/11/20 11:13: POC Glucose 240 H 12/11/20 16:05: POC Glucose 245 H 12/11/20 22:15: POC Glucose 221 H 12/12/20 04:13: WBC 3.7 L, RBC 4.08 L, Hgb 12.3 L, Hct 34.1 L, MCV 83.6, MCH 30.1, MCHC 36.1 H, RDW Std Deviation 35.3, RDW Coeff of Rabia 11.5 L, Plt Count 279, MPV 9.3 12/12/20 04:13: Sodium 140, Potassium 3.1 L, Chloride 105, Carbon Dioxide 29.0, Anion Gap 6, BUN 13, Creatinine 0.45 L, Estim Creat Clear Calc 270.38, Est GFR (MDRD) Af Amer 310, Est GFR (MDRD) Non-Af 256, BUN/Creatinine Ratio 29.0 H, Glucose 142 H, Calcium 8.7 12/12/20 08:19: POC Glucose 196 H Current Medications Acetaminophen (Acetaminophen 325 Mg Tablet) 650 mg PO Q6H PRN PRN PRN Reason: Pain Score 1-10/Temp > 100.7 F Last Admin: 12/10/20 05:02 Dose: 650 mg Documented by: Hydrocodone Bitart/Acetaminophen (Hydrocodone Bitartrate/Apap 5/325 Tablet) 1 tablet PO Q4H PRN PRN PRN Reason: Pain Score 4-10 Last Admin: 12/12/20 10:16 Dose: 1 tablet Documented by: Albuterol Sulfate (Albuterol 2.5 Mg/3 Ml Vial.Neb.) 2.5 mg INHALATION Q4H PRN PRN PRN Reason: WHEEZING Budesonide (Budesonide Respules 0.5 Mg/2 Ml Ampul.Neb.) 0.5 mg INHALATION Q12H.RT [facility] Last Admin: 12/11/20 20:00 Dose: 0.5 mg Documented by: Dextrose (Dextrose 50%-Water 25 Gm/50 Ml Disp.Syrin) 0 gm IV X1 PRN; Protocol PRN Reason: hYPOGLYCEMIA Piperacillin Sod/Tazobactam (Sod 3.375 gm/ Sodium Chloride) 50 mls @ 12.5 mls/hr IV Q8 [facility] Last Infusion: 12/12/20 09:10 Dose: Infused Documented by: Insulin Glargine (Insulin Glargine 100 Units/Ml Pen) 15 units SC BID [facility] Last Admin: 12/12/20 10:18 Dose: 15 u Documented by: Insulin Human Lispro (Insulin Lispro 100 Unit/Ml Insuln.Pen) 10 unit SC 0800,1200,1700 [facility] Last Admin: 01/31/21 08:53 Dose: 10 u Documented by: Insulin Human Lispro (Insulin Lispro 100 Unit/Ml Insuln.Pen) 0 unit SC ACHS [facility]; Protocol Last Admin: 12/12/20 08:53 Dose: 12 u Documented by: L-Arginine/L-Glutamine/Calcium HMB ([facility] ([facility]) [facility]) [facility] Last Admin: 12/12/20 08:53 Dose: 1 packet Documented by: Melatonin (Melatonin 3 Mg Tablet) 3 mg PO QHS PRN PRN PRN Reason: INSOMNIA Ondansetron HCl (Ondansetron 4 Mg/2 Ml Vial) 4 mg IV Q8H PRN PRN PRN Reason: NAUSEA/VOMITING Pantoprazole Sodium (Pantoprazole Sodium 20 Mg Tablet) 20 mg PO DAILY [facility] Last Admin: 12/12/20 08:53 Dose: 20 mg Documented by: Potassium Chloride (Potassium Chloride 20 Meq Tablet) 40 meq PO BIDCM [facility] Last Admin: 12/12/20 08:53 Dose: 40 meq Documented by: Medical Necessity - Tobacco Use Smoking Status: Never smoker Tobacco Use: Non-smoker Assessment/Plan All Active Problems (Last Reviewed 10/27/20 @ 11:[address] Will Mason MD) Diabetic ketoacidosis associated with type 1 diabetes mellitus (Acute) RADHA (acute kidney injury) (Acute) POD#2- wound debridement Plan: Patient can be discharged to follow up in the wound healing clinic for wound vac He and his family can be educated to change the wound dressing on a daily basis by the nursing staff ---> moist saline soaked gauze to be packed in the wound with dry gauze overlying this and to keep dressing in place can lightly use tape and then Carlos wrapping I will sign off this case
[2020-12-12 12:25] LABS: Bedside Glucose 310 mg/dL (70-110)
[2020-12-12 14:14] VITALS: BP 101/65; PULSE 113; RESP 16; TEMP 36.8; O2SAT 98
[2020-12-12 17:35] LABS: Bedside Glucose 186 mg/dL (70-110)
[2020-12-12 20:15] VITALS: BP 109/63; PULSE 100; RESP 16; TEMP 37.3; O2SAT 98
[2020-12-12 21:35] LABS: Bedside Glucose 317 mg/dL (70-110)
[2020-12-13 02:15] VITALS: BP 105/68; PULSE 78; RESP 16; TEMP 36.9; O2SAT 100
[2020-12-13 03:56] LABS: Hematocrit 33.5 % (40-54); Hemoglobin 11.9 g/dL (13.0-16.5); Mean Corp Hgb Conc 35.5 g/dL (32-36); Mean Corpuscular Hgb 30.4 pg (27.0-32.0); Mean Corpuscular Volume 85.5 fL (80-94); Mean Platelet Vol. 9.1 fl (6.2-12.0); Platelet Count 284 K/mm3 (150-450); RBC Distribution Width CV 11.5 % (11.6-14.6); RBC Distribution Width SD 35.5 fl (35.1-43.9); Red Blood Count 3.92 M/mm3 (4.6-6.2); White Blood Count 3.7 K/mm3 (4.4-11.0)
[2020-12-13 04:13] LABS: Anion Gap 5 (5-15); BUN 12 mg/dL (7-18); BUN/Creat Ratio 22.6 RATIO (10-20); Calcium,Total 8.7 mg/dL (8.5-10.1); Chloride 100 mmol/L (98-107); Creatinine, Serum 0.53 mg/dL (0.70-1.30); EST Glomerular Filtration Rate 211 mL/min (>60); Est Glom Filt Rate - Afr Amer 255 mL/min (>60); Glucose 246 mg/dL (74-106); Potassium 3.3 mmol/L (3.5-5.1); Sodium Level 135 mmol/L (136-145)
[2020-12-13 07:18] VITALS: PULSE 86; RESP 18
[2020-12-13] MEDS: Budesonide Respules 0.5 MG/2 ML AMPUL.NEB. INHALATION (07:18)
[2020-12-13 07:34] VITALS: BP 105/71; PULSE 83; RESP 14; TEMP 36.6; O2SAT 100
[2020-12-13] MEDS: Insulin Lispro 100 UNIT/ML INSULN.PEN SC ×2 (07:41→11:48)
[2020-12-13] MEDS: Insulin Lispro 100 UNIT/ML INSULN.PEN 10 UNIT SC ×2 (07:42→11:46)
[2020-12-13 07:45] LABS: Bedside Glucose 259 mg/dL (70-110)
[2020-12-13] MEDS: Pantoprazole Sodium 20 MG Tablet PO (07:45)
--- NOTE | 2020-12-13 07:52 | PCM.PN.SRG ---
Subjective: patient doing well, no major complaints with regard to leg wound - Physical Exam Vitals/I&O's: Vital Signs Temp Pulse Resp BP Pulse Ox 97.8 F 83 14 105/71 100 12/13/20 07:34 12/13/20 07:34 12/13/20 07:34 12/13/20 07:34 12/13/20 07:34 Oxygen Flow Rate (L/min) 6 Oxygen Delivery Method Room Air Weight: 72.4 kg Body Mass Index (BMI) 21.0 Finger Stick Blood Glucose 172 Intake and Output for Last 24 Hours 12/11/20 12/12/20 12/13/20 23:59 23:59 23:59 Intake Total 892.25 / 892.25 150 / 150 50 / 50 Output Total 3075 / 3075 2100 / 2100 1100 / 1100 Balance -2182.75 / -2182.75 -1950 / -1950 -1050 / -1050 General: Alert, Oriented x3 Oral: Moist Mucosa Neck: Supple Lungs: Normal air movement Extremities: - - dressing intact, no seepage noted Microbiology Past 72 Hours 12/10/20 17:52 Wound - Other Gram Stain - Final 12/10/20 17:52 Wound - Other Wound Culture - Preliminary Gram negative jo ann Gram negative jo ann#2 Gram positive organism 12/09/20 17:40 Wound - Leg, Left Gram Stain - Final 12/09/20 17:40 Wound - Leg, Left Wound Culture - Final Klebsiella pneumoniae sp pneum Enterobacter cloacae complex Staphylococcus epidermidis 12/09/20 16:26 Blood Culture (Wb) - Left Hand Blood Culture - Preliminary No growth in 48 hours. 12/09/20 16:19 Blood Culture (Wb) - Anticubital Left Blood Culture - Preliminary No growth in 48 hours. Laboratory Results 12/12/20 08:19: POC Glucose 196 H 12/12/20 12:14: POC Glucose 310 H 12/12/20 17:01: POC Glucose 186 H 12/12/20 21:25: POC Glucose 317 H 12/13/20 03:27: WBC 3.7 L, RBC 3.92 L, Hgb 11.9 L, Hct 33.5 L, MCV 85.5, MCH 30.4, MCHC 35.5, RDW Std Deviation 35.5, RDW Coeff of Rabia 11.5 L, Plt Count 284, MPV 9.1 12/13/20 03:27: Sodium 135 L, Potassium 3.3 L, Chloride 100, Carbon Dioxide 30.0, Anion Gap 5, BUN 12, Creatinine 0.53 L, Estim Creat Clear Calc 229.57, Est GFR (MDRD) Af Amer 255, Est GFR (MDRD) Non-Af 211, BUN/Creatinine Ratio 22.6 H, Glucose 246 H, Calcium 8.7, Magnesium 2.0 12/13/20 07:31: POC Glucose 259 H Current Medications Acetaminophen (Acetaminophen 325 Mg Tablet) 650 mg PO Q6H PRN PRN PRN Reason: Pain Score 1-10/Temp > 100.7 F Last Admin: 12/10/20 05:02 Dose: 650 mg Documented by: Hydrocodone Bitart/Acetaminophen (Hydrocodone Bitartrate/Apap 5/325 Tablet) 1 tablet PO Q4H PRN PRN PRN Reason: Pain Score 4-10 Last Admin: 12/12/20 10:16 Dose: 1 tablet Documented by: Albuterol Sulfate (Albuterol 2.5 Mg/3 Ml Vial.Neb.) 2.5 mg INHALATION Q4H PRN PRN PRN Reason: WHEEZING Budesonide (Budesonide Respules 0.5 Mg/2 Ml Ampul.Neb.) 0.5 mg INHALATION Q12H.RT [facility] Last Admin: 12/13/20 07:18 Dose: 0.5 mg Documented by: Dextrose (Dextrose 50%-Water 25 Gm/50 Ml Disp.Syrin) 0 gm IV X1 PRN; Protocol PRN Reason: hYPOGLYCEMIA Piperacillin Sod/Tazobactam (Sod 3.375 gm/ Sodium Chloride) 50 mls @ 12.5 mls/hr IV Q8 [facility] Last Admin: 12/13/20 05:20 Dose: 12.5 mls/hr Documented by: Insulin Glargine (Insulin Glargine 100 Units/Ml Pen) 20 units SC BID [facility] Insulin Human Lispro (Insulin Lispro 100 Unit/Ml Insuln.Pen) 10 unit SC 0800,1200,1700 [facility] Last Admin: 12/13/20 07:42 Dose: 10 u Documented by: Insulin Human Lispro (Insulin Lispro 100 Unit/Ml Insuln.Pen) 0 unit SC ACHS [facility]; Protocol Last Admin: 12/13/20 07:41 Dose: 4 u Documented by: L-Arginine/L-Glutamine/Calcium HMB ([facility] (Unfl[facility]) [facility]) [facility] Last Admin: 12/13/20 07:45 Dose: Not Given Documented by: Melatonin (Melatonin 3 Mg Tablet) 3 mg PO QHS PRN PRN PRN Reason: INSOMNIA Ondansetron HCl (Ondansetron 4 Mg/2 Ml Vial) 4 mg IV Q8H PRN PRN PRN Reason: NAUSEA/VOMITING Pantoprazole Sodium (Pantoprazole Sodium 20 Mg Tablet) 20 mg PO DAILY [facility] Last Admin: 12/13/20 07:45 Dose: 20 mg Documented by: Potassium Chloride (Potassium Chloride 20 Meq Tablet) 40 meq PO BIDCM [facility] Last Admin: 12/13/20 07:41 Dose: 40 meq Documented by: Medical Necessity - Tobacco Use Smoking Status: Never smoker Tobacco Use: Non-smoker Assessment/Plan All Active Problems (Last Reviewed 10/27/20 @ 11:[address] Will Mason MD) Diabetic ketoacidosis associated with type 1 diabetes mellitus (Acute) RADHA (acute kidney injury) (Acute) POD#3- wound debridement Plan: Patient can be discharged to follow up in the wound healing clinic for wound vac He and his family can be educated to change the wound dressing on a daily basis by the nursing staff ---> moist saline soaked gauze to be packed in the wound with dry gauze overlying this and to keep dressing in place can lightly use tape and then Carlos wrapping I will sign off this case
[2020-12-13] MEDS: HYDROcodone Bitartrate/Apap 5/325 Tablet PO ×2 (08:29→14:51)
--- NOTE | 2020-12-13 09:40 | NURSING ---
wound photo: left posterior thigh
[2020-12-13 11:19] VITALS: BP 117/73; PULSE 93; RESP 16; TEMP 36.6; O2SAT 100
--- NOTE | 2020-12-13 11:19 | DCINST_ITS ---
You will use the following diet at home:: Calorie/Carbohydrate Controlled (specify 1200, 1400, etc) Your food should be the consistency of: Regular Your liquids should be the consistency of: Regular/Thin Discharge Activity: Return to Normal Activity Call your doctor if you observe: Fever of 101 or Higher, Shortness of breath, Dizziness, Fainting spells, Swelling in the ankles, Chest pain, Increased palpitations (irregular heartbeat) Additional Instructions: Your long-acting insulin, the Lantus was increased to 20 units twice daily. This is likely in response to the infection. We will continue to monitor your blood sugar throughout the course of your improvement and if you start becoming hypoglycemic I would slowly decrease your insulin back to what she came in on which was 15 units daily. Allergies/Adverse Reactions: Allergies No Known Allergies Allergy (Verified 12/09/20 15:40) Medications to take at Discharge Albuterol Inhaler [Ventolin Hfa] 2 puff INHALATION Q4H PRN PRN 02/15/19 Fluticasone 44 Mcg [Flovent 44 Mcg] 2 puff IH BID 11/12/19 Ondansetron [Zofran Odt] 4 mg PO Q8H PRN PRN #10 tab 10/19/20 Insulin Lispro [Humalog Kwikpen] 10 unit SC TID 12/09/20 Omeprazole [Prilosec] 20 mg PO DAILY PRN PRN 12/09/20 Potassium Chloride [K-Dur] 20 meq PO BIDCM 12/09/20 Insulin Glargine [Lantus SoloStar Pen] 20 units SQ BID #0 12/13/20 Levofloxacin [Levaquin] 750 mg PO DAILY #7 tab 12/13/20 The following prescriptions were given: Levofloxacin [Levaquin] 750 mg PO DAILY #7 tab Transmission Status: Pending to [facility] Primary Care Physician: Tori Butler MD [Primary Care Provider] - Test Results: Test results from this visit will be discussed in further detail at your follow- up appointment, if applicable. Please Follow Up With: Ciera Laura MD When: 1 WK Please Follow Up With: SALLIE When: 2 WK Please Follow Up With: Wound Care When: scheduled
--- NOTE | 2020-12-13 12:13 | PHA.DC.MC ---
Pharmacy Service has performed discharge medication reconciliation and counseling for this patient. 1. LEVOFLOXACIN 750MG PO DAILY X 7 DAYS The patient's discharge medication list was reviewed for discrepancies and discrepancies were resolved. Home Medications Albuterol Inhaler [Ventolin Hfa] 2 puff INHALATION Q4H PRN PRN 02/15/19 Fluticasone 44 Mcg [Flovent 44 Mcg] 2 puff IH BID 11/12/19 Ondansetron [Zofran Odt] 4 mg PO Q8H PRN PRN #10 tab 10/19/20 Insulin Lispro [Humalog Kwikpen] 10 unit SC TID 12/09/20 Omeprazole [Prilosec] 20 mg PO DAILY PRN PRN 12/09/20 Potassium Chloride [K-Dur] 20 meq PO BIDCM 12/09/20 Insulin Glargine [Lantus SoloStar Pen] 20 units SQ BID #0 12/13/20 Levofloxacin [Levaquin] 750 mg PO DAILY #7 tab 12/13/20 The patient was counseled on the following discharge medications and changes in medications for homegoing were reviewed. The Reason for Use, instructions for use, and potential side effects were reviewed for all new medications. The patient's questions regarding all of their medications were answered. The patient was able to verbally demonstrate an understanding of their discharge medications.
--- NOTE | 2020-12-13 13:00 | CASEMGMT ---
VERONA FONTANEZ updated that patient will need HHC at discharge for wound vac management. Patient was provided a list of HHC providers including quality and resource use data and consistent with the patient?s preferred geographic region, medical needs, and insurance network. The patient?s preferred provider are 1. [facility] and 2. [facility]. VERONA FONTANEZ sent referral to [facility] and they are able to accept the referral. VERONA FONTANEZ faxed discharge paperwork to [facility]. VERONA FONTANEZ updated the patient regarding HHC setup.
--- NOTE | 2020-12-13 13:28 | DS.PCM_ITS ---
Discharge Date and Diagnosis Date of Admission: 12/09/20 Date of Discharge: 12/13/20 - Secondary Discharge Diagnosis Chronic Problems: Chronic Problems (Last Reviewed 10/27/20 @ 11:[address] Will Mason MD) Psychosocial problem (Chronic) Noncompliance with diabetes treatment (Chronic) Diabetes (Chronic) History of type 1 diabetes mellitus (Chronic) DKA, type 1 (Chronic) Asthma (Chronic) GERD (gastroesophageal reflux disease) (Chronic) Hospital Course and Treatment Imaging Results: Clinical Impression(s) from Imaging Studies Chest X-Ray 12/09/20 16:33 IMPRESSION: Normal x-ray examination of the chest. Electronically Signed: Jef Rogers MD at 16:43 EST , Service support , Report of Operation Date of Procedure: 12/10/20 Pre-Operative Diagnosis: necrotic wound with eschar, poorly controlled diabetes Post-Operative Diagnosis: same Surgery/Procedure Performed:: debridement of skin and subcutaneous tissue 12 x 10 cm with depth to level of fascia Description of Surgical Findings:: necrotic wound with about 4 x 6 cm eschar, the subcutaneous tissue and necrotic skin extended further with purulent drainage, tissue sent for culture and pathology Anesthesiologist: John Marmolejo Specimen's removed: skin and subcutaneous tissues Estimated Blood Loss (mL): 30 ml Fluids Replaced: 400 ml RL Consultations 12/09/20 19:10 Consult: Onc/Wound/adoption social worker Routine Comment: Reason for Consult:: Left posterior thigh wound General Surgery Procedures: None Summary of Care Provided: Per HPI: The patient is a 19 year old M with a PMH as below who presents to the hospital after seeing his PCP today. He was seen in the ER 4 days ago for left lower extremity abscess which was drained unfortunately no culture was obtained at that time. He was discharged on Keflex and Bactrim. However his PCP saw him today and felt that it looked a little bit worse but also noticed on routine labs that his blood sugar was over 600. Because of the left lower extremity cellulitis and blood sugar over 600 his PCP sent him in. In the ER he was found to be hyponatremic with 116 with a CO2 of 9 and a blood sugar over thousand with an elevated lactic acid. He has received 1 L bolus in the ER. And started on insulin drip. He feels better so far being here in the ER, and has no current complaints to me. Hospital Course: 1. Type 1 diabetes and DKA secondary to sepsis from a left thigh abscess with surrounding 46 male with his second admission in 30 days for DKA. He did present 4 days prior to his admission this time for a wound on his thigh and that was drained however no cultures were obtained in the ER. He was placed on Bactrim and Keflex and he presented again this time with DKA and RADHA which improved significantly with an insulin drip and IV fluids. His home insulin regimen was adjusted and he is now on 20 units twice daily of his long- acting insulin. This likely need to be continued through the course of treatment for his left thigh abscess. Unable to say whether or not he had severe sepsis secondary to DKA be a confounding variable. His wound cultures did demonstrate Klebsiella, Enterobacter, and Staphylococcus all of which were sensitive to Levaquin. Therefore we will discharge him on oral Levaquin 750 mg daily for 7 more days. He did have excellent debridement by general surgery and had a wound VAC placed, would recommend he follow-up with wound care as an outpatient. And will need to follow-up with his PCP in 3 to 5 days. Would recommend that he continue to check his blood sugars and make appropriate adjustments to his long-acting insulin his mealtime insulin as necessary. I discussed with him the plan for discharge today and he expressed understanding of the risk and benefits of going home and would like to go home today. 2. GERD okay to continue with his PPI on discharge - Physical Exam Vitals/I&O's: Vital Signs Temp Pulse Resp BP Pulse Ox 97.8 F 83 14 105/71 100 12/13/20 07:34 12/13/20 07:34 12/13/20 07:34 12/13/20 07:34 12/13/20 07:34 Oxygen Flow Rate (L/min) 6 Oxygen Delivery Method Room Air Weight: 159 lb 9.835 oz Body Mass Index (BMI) 21.0 Finger Stick Blood Glucose 172 Intake and Output for Last 24 Hours 12/11/20 12/12/20 12/13/20 23:59 23:59 23:59 Intake Total 892.25 / 892.25 150 / 150 100 / 100 Output Total 3075 / 3075 2100 / 2100 1100 / 1100 Balance -2182.75 / -2182.75 -1950 / -1950 -1000 / -1000 General: Alert, Oriented x3, Cooperative, No apparent distress HEENT: Atraumatic, PERRLA, EOMI, Normocephalic Oral: Moist mucosa Neck: Supple, No JVD Lungs: Clear to auscultation, Normal air movement, No rhonchi, No wheeze, No rales Cardiovascular: Regular rate, Regular Rhythm, Normal S1, Normal S2, No murmurs Abdomen: Soft, Non Tender, Non-Distended, No Hepato-splenomegaly Extremities: No edema, Capillary Refill Less than 3 Seconds Skin: No rashes, No breakdown, Ulcer/ Wound -dressing clean, dry, intact Neurological: Neuro grossly intact, Sensory exam intact to light touch and pain Psych/Mental Status: Normal Affect, Appropriate Microbiology Past 72 Hours 12/10/20 17:52 Wound - Other Gram Stain - Final 12/10/20 17:52 Wound - Other Wound Culture - Final Enterobacter cloacae complex Klebsiella pneumoniae sp pneum Staphylococcus haemolyticus 12/09/20 17:40 Wound - Leg, Left Gram Stain - Final 12/09/20 17:40 Wound - Leg, Left Wound Culture - Final Klebsiella pneumoniae sp pneum Enterobacter cloacae complex Staphylococcus epidermidis 12/09/20 16:26 Blood Culture (Wb) - Left Hand Blood Culture - Preliminary No growth in 48 hours. 12/09/20 16:19 Blood Culture (Wb) - Anticubital Left Blood Culture - Preliminary No growth in 48 hours. Laboratory Results 12/12/20 17:01: POC Glucose 186 H 12/12/20 21:25: POC Glucose 317 H 12/13/20 03:27: WBC 3.7 L, RBC 3.92 L, Hgb 11.9 L, Hct 33.5 L, MCV 85.5, MCH 30.4, MCHC 35.5, RDW Std Deviation 35.5, RDW Coeff of Rabia 11.5 L, Plt Count 284, MPV 9.1 12/13/20 03:27: Sodium 135 L, Potassium 3.3 L, Chloride 100, Carbon Dioxide 30.0, Anion Gap 5, BUN 12, Creatinine 0.53 L, Estim Creat Clear Calc 229.57, Est GFR (MDRD) Af Amer 255, Est GFR (MDRD) Non-Af 211, BUN/Creatinine Ratio 22.6 H, Glucose 246 H, Calcium 8.7, Magnesium 2.0 12/13/20 07:31: POC Glucose 259 H Current Medications Acetaminophen (Acetaminophen 325 Mg Tablet) 650 mg PO Q6H PRN PRN PRN Reason: Pain Score 1-10/Temp > 100.7 F Last Admin: 12/10/20 05:02 Dose: 650 mg Documented by: Hydrocodone Bitart/Acetaminophen (Hydrocodone Bitartrate/Apap 5/325 Tablet) 1 tablet PO Q4H PRN PRN PRN Reason: Pain Score 4-10 Last Admin: 12/13/20 08:29 Dose: 1 tablet Documented by: Albuterol Sulfate (Albuterol 2.5 Mg/3 Ml Vial.Neb.) 2.5 mg INHALATION Q4H PRN PRN PRN Reason: WHEEZING Budesonide (Budesonide Respules 0.5 Mg/2 Ml Ampul.Neb.) 0.5 mg INHALATION Q12H.RT [facility] Last Admin: 12/13/20 07:18 Dose: 0.5 mg Documented by: Dextrose (Dextrose 50%-Water 25 Gm/50 Ml Disp.Syrin) 0 gm IV X1 PRN; Protocol PRN Reason: hYPOGLYCEMIA Piperacillin Sod/Tazobactam (Sod 3.375 gm/ Sodium Chloride) 50 mls @ 12.5 mls/hr IV Q8 [facility] Last Infusion: 12/13/20 09:20 Dose: Infused Documented by: Insulin Glargine (Insulin Glargine 100 Units/Ml Pen) 20 units SC BID [facility] Last Admin: 12/13/20 11:45 Dose: 20 u Documented by: Insulin Human Lispro (Insulin Lispro 100 Unit/Ml Insuln.Pen) 10 unit SC 0800,1200,1700 [facility] Last Admin: 12/13/20 11:46 Dose: 10 u Documented by: Insulin Human Lispro (Insulin Lispro 100 Unit/Ml Insuln.Pen) 0 unit SC ACHS [facility]; Protocol Last Admin: 12/13/20 11:48 Dose: 11 u Documented by: L-Arginine/L-Glutamine/Calcium HMB (Chase (Unflavored) Packet) 1 packet PO BIDCM [facility] Last Admin: 12/13/20 07:45 Dose: Not Given Documented by: Melatonin (Melatonin 3 Mg Tablet) 3 mg PO QHS PRN PRN PRN Reason: INSOMNIA Ondansetron HCl (Ondansetron 4 Mg/2 Ml Vial) 4 mg IV Q8H PRN PRN PRN Reason: NAUSEA/VOMITING Pantoprazole Sodium (Pantoprazole Sodium 20 Mg Tablet) 20 mg PO DAILY [facility] Last Admin: 12/13/20 07:45 Dose: 20 mg Documented by: Potassium Chloride (Potassium Chloride 20 Meq Tablet) 40 meq PO BIDCM [facility] Last Admin: 12/13/20 07:41 Dose: 40 meq Documented by: Discharge Activity: Return to Normal Activity Call your doctor if you observe: Fever of 101 or Higher, Shortness of breath, Dizziness, Fainting spells, Swelling in the ankles, Chest pain, Increased palpitations (irregular heartbeat) Home Medications: Medications to take at Discharge Albuterol Inhaler [Ventolin Hfa] 2 puff INHALATION Q4H PRN PRN 02/15/19 Fluticasone 44 Mcg [Flovent 44 Mcg] 2 puff IH BID 11/12/19 Ondansetron [Zofran Odt] 4 mg PO Q8H PRN PRN #10 tab 10/19/20 Insulin Lispro [Humalog Kwikpen] 10 unit SC TID 12/09/20 Omeprazole [Prilosec] 20 mg PO DAILY PRN PRN 12/09/20 Potassium Chloride [K-Dur] 20 meq PO BIDCM 12/09/20 Insulin Glargine [Lantus SoloStar Pen] 20 units SQ BID #0 12/13/20 Levofloxacin [Levaquin] 750 mg PO DAILY #7 tab 12/13/20 Following Prescriptions Were Given to Patient: Levofloxacin [Levaquin] 750 mg PO DAILY #7 tab Transmission Status: Received by [facility] Primary Care Physician: Tori Butler MD [Primary Care Provider] - Please Follow Up With: Ciera Laura MD When: 1 WK Please Follow Up With: SALLIE When: 2 WK Please Follow Up With: Wound Care When: scheduled Disposition: Home Minutes spent on discharge:: 35 Patient Condition:: Stable Medical Necessity - Tobacco Use Smoking Status: Never smoker Tobacco Use: Non-smoker Meaningful Use Info Meaningful Use Diagnoses (Choose all that apply): None applicable Inpatient E&M: 74015 [facility]
--- NOTE | 2020-12-13 15:54 | NURSING ---
Pt switched over to the home VAC. mother present in room. reviewed alarms, changing canister, etc. with patient and mother. proof of delivery signed and faxed to [facility]. Also faxed discharge summary as requested by insurance.
[2020-12-14 07:51] LABS: Bedside Glucose 480 mg/dL (70-110)
[2020-12-14 07:51] LABS: Bedside Glucose 476 mg/dL (70-110)
--- NOTE | 2020-12-14 14:28 | CASEMGMT ---
VERONA FONTANEZ Discharge Follow-up Phone Call: MELVIN: Edgar Strata: 4 Call Date: 12/14/20 Discharge Date: 12/13/20 Time of Call: 1342 Duration: 3 min Admitting Diagnosis: DKA, leg wound VERONA FONTANEZ received call from [facility] that they are trying to get in touch with patient for start of care. VERONA FONTANEZ called patient regarding [facility] trying to reach him. VERONA FONTANEZ provided number for nurse Jannet at [facility]. Patient voiced understanding. Patient states he has no questions or concerns regarding discharge instructions. Patient had no further questions. Patient has follow-up appts scheduled.
== END 2020-12-13 16:22 | disposition home health service (06) | DRG 383 ==
LOC: ED 16:31 → ICU 12-10 00:09 → MS3 12-10 14:14
PROVIDERS: Anesthesiology; Family Medicine; Internal Medicine; Surgery; Admitting Provider Family Medicine; Emergency Provider Emergency Medicine; PCP Pediatrics; Visit Provider Family Medicine
PROC: 0JBM0ZZ Excision of Left Upper Leg Subcutaneous Tissue and Fascia, Open Approach (ICD-10-PCS; principal; 2020-12-10 16:50)
DX: L02.416 Cutaneous abscess of left lower limb (principal); E10.10 Type 1 diabetes mellitus with ketoacidosis without coma; L03.116 Cellulitis of left lower limb; E10.622 Type 1 diabetes mellitus with other skin ulcer; Z65.9 Problem related to unspecified psychosocial circumstances; E87.1 Hypo-osmolality and hyponatremia; K21.9 Gastro-esophageal reflux disease without esophagitis; B35.9 Dermatophytosis, unspecified; R65.20 Severe sepsis without septic shock; J45.20 Mild intermittent asthma, uncomplicated; E87.6 Hypokalemia; Z91.14 Patient's other noncompliance with medication regimen; N17.9 Acute kidney failure, unspecified
CPT/HCPCS: 36415; 71045; 80048; 80053; 81001; 82009; 82962; 83036; 83605; 83735; 84100; 85025; 85027; 87040; 87070; 87075; 87077; 87102; 87176; 87186; 87205; 87206; 87426; 88304; 88305; 88312; 94640; 97802; 99285; J7030; J7050; A4216; J2405; J7799

== ENCOUNTER 2020-12-23 12:31 | Outpatient (RCR) | payer MEDICAID, SELFPAY ==
[2020-12-10 14:20] VITALS: BMI 21.0
[2020-12-23 12:48] VITALS: BP 131/76; RESP 18; TEMP 36.6; BMI 47.9
--- NOTE | 2020-12-23 14:05 | PCM.WC.HP ---
(1) Nonhealing surgical wound Status: Acute Code(s): T81.89XA - Other complications of procedures, not elsewhere classified, initial encounter Comment: Left thigh (2) Abscess of left thigh Status: Acute Code(s): L02.416 - Cutaneous abscess of left lower limb (3) Uncontrolled type 1 diabetes mellitus Status: Acute Code(s): E10.65 - Type 1 diabetes mellitus with hyperglycemia (4) Hemoglobin A1C greater than 9%, indicating poor diabetic control Status: Acute Code(s): R73.09 - Other abnormal glucose (5) Noncompliance Status: Acute Code(s): Z91.19 - Patient's noncompliance with other medical treatment and regimen (6) Delayed surgical wound healing Status: Acute Code(s): T81.89XA - Other complications of procedures, not elsewhere classified, initial encounter (7) Asthma Status: Chronic Qualifiers: Code(s): J45.909 - Unspecified asthma, uncomplicated (8) Noncompliance with diabetes treatment Status: Chronic Code(s): Z91.19 - Patient's noncompliance with other medical treatment and regimen History of Present Illness Date of Service: 12/23/20 Chief Complaint: None healing postsurgical wound status post abscess incision and drainage by Dr. Laura on 12/10/2020 History of Wound: Patient presents for delayed wound healing of surgical I&D of an abscess on 12/10/20 to his left thigh. Patient was originally seen in the ER 4 days prior to his hospital admission for a draining wound to his left thigh. He was sent home on Keflex and Bactrim, no cultures were obtained at that ER visit. His PCP saw him later and felt his wound was not healing, looking worse and sent him back to the ER. At that time his blood sugars were over 600 and he was admitted for DKA, RADHA and sepsis. During his admission he was placed on an insulin drip, given IV fluids and wound cultures were obtained. His wound cultures grew Klebsiella, Enterobacter and Staphylococcus. He was then switched to oral Levaquin for 7 days which he has completed. During his hospital visit his A1c was greater than 16.0 and his home insulin was adjusted. He was discharged on 12-13-20 with home health care for wound VAC changes 3x/week. His wound has not improved over the last 10 days with the wound VAC and home health care and was sent to the wound healing center by his surgeon Dr. Laura. He denies any systemic or any localized signs of infection at this time. He does state that the site is still painful. He does note that with regard to his uncontrolled type 1 diabetes, but he is following up with endocrinology and that his typical fasting blood glucoses range between 150 and 200. Past medical, family, and social history reviewed and not pertinent to the current visit and all other systems reviewed and negative with exception of those listed above. Past Medical History Past Medical History: Chronic Problems (Last Reviewed 10/27/20 @ 11:[address] Will Mason MD) Psychosocial problem (Chronic) Noncompliance with diabetes treatment (Chronic) Diabetes (Chronic) History of type 1 diabetes mellitus (Chronic) DKA, type 1 (Chronic) Asthma (Chronic) GERD (gastroesophageal reflux disease) (Chronic) Surgical History: noncontributory, - - Right knee surgery. Allergies/Adverse Reactions: Allergies No Known Allergies Allergy (Verified 12/23/20 13:18) Home Medications: Ambulatory Orders Medication Instructions Recorded Albuterol Inhaler [Ventolin Hfa] 2 puff INHALATION Q4H PRN PRN 02/15/19 Fluticasone 44 Mcg [Flovent 44 Mcg] 2 puff IH BID 11/12/19 Ondansetron [Zofran Odt] 4 mg PO Q8H PRN PRN #10 tab 10/19/20 Insulin Lispro [Humalog Kwikpen] 10 unit SC TID 12/09/20 Omeprazole [Prilosec] 20 mg PO DAILY PRN PRN 12/09/20 Potassium Chloride Oral Tablet 20 meq PO BIDCM 12/09/20 [K-Dur] Insulin Glargine [Lantus SoloStar 20 units SQ BID #0 12/13/20 Pen] Levofloxacin [Levaquin] 750 mg PO DAILY #7 tab 12/13/20 - Family History Maternal Family History: Family History (Last Reviewed 10/27/20 @ 11:[address] Will Mason MD) Other Asthma CVA (cerebral vascular accident) Diabetes Hypertension Thyroid disorder - - Patient with no market maternal or paternal family history including heart disease, diabetes, cancer. Paternal Family History: Family History (Last Reviewed 10/27/20 @ 11:[address] Will Mason MD) Other Asthma CVA (cerebral vascular accident) Diabetes Hypertension Thyroid disorder - - Patient with no market maternal or paternal family history including heart disease, diabetes, cancer. Smoking Status: Never smoker Review of Systems Constitutional: Denies: Chills, Fever, Weight Change Eyes: Denies: Pain, Vision Change HEENT: Denies: Difficulty Hearing, Difficulty Swallowing, Sinus Congestion Cardiovascular: Denies: Chest Pain, Palpitations Respiratory: Denies: Cough, Shortness of Breath Gastrointestinal: Denies: Diarrhea, Nausea, Vomiting Genitourinary: Denies: Dysuria, Hematuria Skin: Reports: Wounds - See HPI Endocrine: Denies: Heat/ Cold Intolerance, Polydipsia, Polyuria Hematologic/ Lymphatic: Denies: Easy Bruising, Easy Bleeding - Physical Exam Vital Signs Temp Resp BP 97.8 F 18 131/76 H 12/23/20 12:48 12/23/20 12:48 12/23/20 12:48 General: Alert, Oriented x3, Cooperative, No apparent distress HEENT: Atraumatic Oral: Moist Mucosa Lungs: Clear to auscultation, Normal air movement Cardiovascular: Regular rate Abdomen: Soft, Non Tender Extremities: No clubbing, No cyanosis, No edema Skin: Ulcer/ Wound - See nursing documentation, postsurgical wound to left posterior thigh with adherent slough, after debridement site appears beefy red and granular without any obvious signs of infection at this time Wound Measurements and Assessment WC - Nurse 1 - General Ulcer Measurement Start: 12/23/20 12:48 Freq: Status: Active Protocol: Activity Type Activity Date Activity User E-Sign Co-Sign Detail Recorded Client Recorded Date Recorded By Document 12/23/20 12:48 DL [id number] 12/23/20 13:13 DL 12/23/20 12:48 Wound Center Nurse 1 [Ulcer Assessment] 1 left post thigh -Current Size (cm) - Length 9.4 -Current Size (cm) - Width 4.4 -Current Size (cm) - Depth 1.3 -Total Square Cm 41.36 -Photo Taken Yes -Epithelialization Medium 34-66% -Classification - Thickness Full Thickness without Exposed Support Structure -Exudate Amt Medium -Exudate Type Sanguineous -Granulation Amt Large (67-100%) -Granulation Quality Red -Necrosis Amt None Present (0 %) -Structure Exposed Muscle -Texture (Summer-wound Skin Appearance) Localized Edema -Moisture (Summer-wound Skin Appearance No Abnormality ) -Color (Summer-wound Skin Appearance) Rubor -Temperature (Summer-wound Skin No Abnormality Appearance) (Pt Warm) -Tenderness on Palpation (Summer-wound Yes Skin Appearance) -Ulcer Cleansing Rinsed/ Irrigated with Saline -Foul Odor after Cleansing No -Anesthetic Used 4% Lidocaine Solution WC - Nurse 2 - General Ulcer CM Notes Start: 12/23/20 12:48 Freq: Status: Active Protocol: Activity Type Activity Date Activity User E-Sign Co-Sign Detail Recorded Client Recorded Date Recorded By Document 12/23/20 13:40 MW [id number] 12/23/20 13:56 MW 12/23/20 13:40 Wound Center Nurse 2 [Procedure/Treatment] -Time 13:41 -Correct Patient Yes -Correct Side, Site, Position Yes -Correct Procedure Yes -Procedure Performed Yes -Type of Procedure Debridement -Clinical Debridement Subcutaneous -Tissue Removed Subcutaneous -Post Debridement (cm) - Length 11.0 -Post Debridement (cm) - Width 4.5 -Post Debridement (cm) - Depth 2.5 -Total Square (Post) (cm) 49.50 -Area of Debridement (cm) - Length 11.0 -Area of Debridement (cm) - Width 4.5 -Total Square (Area) (cm) 49.50 -Tunneling No -Undermining/Tunneling No -Circular Undermining No -Wound/Ulcer Outcome Not Healed -Ulcer Cleansing Rinsed/ Irrigated with Saline -Foul Odor after Cleansing No -Bioengineered Tissue No -Bleeding Controlled with Pressure -Offloading No -Treatment Response Procedure Tolerated Well -Debridement - Subq, 1st 20sq cm Yes -Debridement, SubQ, ea addt'l 20sq cm 2 or part thereof [See Physician Procedure note for Specifics] Pain Scale: 0-10 Numeric [Pain] -Is Patient Pain Free? Yes Musculoskeletal: No Tenderness to Palpation of Joints or Extremities, - - thin Lymphatic: No Cervical, Supraclavicular, or Inguinal Adenopathy Neurological: Neuro grossly intact Psych/Mental Status: Normal Affect, Appropriate, Alert and oriented to time, place, person, mood and affect Debridement Note Post-Debridement Measurements/Treatment WC - Nurse 2 - General Ulcer CM Notes Start: 12/23/20 12:48 Freq: Status: Active Protocol: Activity Type Activity Date Activity User E-Sign Co-Sign Detail Recorded Client Recorded Date Recorded By Document 12/23/20 13:40 MW [id number] 12/23/20 13:56 MW 12/23/20 13:40 Wound Center Nurse 2 1 left post thigh -Time 13:41 -Correct Patient Yes -Correct Side, Site, Position Yes -Correct Procedure Yes -Procedure Performed Yes -Type of Procedure Debridement -Clinical Debridement Subcutaneous -Tissue Removed Subcutaneous -Post Debridement (cm) - Length 11.0 -Post Debridement (cm) - Width 4.5 -Post Debridement (cm) - Depth 2.5 -Total Square (Post) (cm) 49.50 -Area of Debridement (cm) - Length 11.0 -Area of Debridement (cm) - Width 4.5 -Total Square (Area) (cm) 49.50 -Tunneling No -Undermining/Tunneling No -Circular Undermining No -Wound/Ulcer Outcome Not Healed -Ulcer Cleansing Rinsed/ Irrigated with Saline -Foul Odor after Cleansing No -Bioengineered Tissue No -Bleeding Controlled with Pressure -Offloading No -Treatment Response Procedure Tolerated Well -Debridement - Subq, 1st 20sq cm Yes -Debridement, SubQ, ea addt'l 20sq cm 2 or part thereof Pain Scale: 0-10 Numeric Is Patient Pain Free? Yes Wound debrided: Postsurgical wound left upper posterior thigh status post I&D abscess Laterality: Left Type of Debridement: Excisional debridement Anesthesia Used: 5% Lidocaine Gel Depth: Down to and including healthy tissue, in the subcutaneous layer, to muscle Percentage of wound debrided: 100 Instrument Used: 5mm curette Tissue Removed: Slough and devitalized tissue Severity: Fat Layer Exposed Amount of bleeding with debridement: Mild Bleeding Controlled with: Pressure Patient tolerated procedure well Assessment/Plan Active Problems (Last Reviewed 10/27/20 @ 11:[address] Will Mason MD) Abscess of left thigh (Acute) Nonhealing surgical wound (Acute) Left thigh Uncontrolled type 1 diabetes mellitus (Acute) Hemoglobin A1C greater than 9%, indicating poor diabetic control (Acute) Noncompliance (Acute) Delayed surgical wound healing (Acute) Noncompliance with diabetes treatment (Chronic) Asthma (Chronic) Assessment: Nonhealing postsurgical wound status post incision and drainage of abscess to left posterior thigh on 12/10/2020. Uncontrolled type 1 diabetes Plan: The patient was seen and examined at the wound center today and was updated on the plan of care. A subcutaneous and muscular debridement was performed today. The patient tolerated the procedure well. The patients wound care will consist of: Application of wound VAC at 150 mmHg black foam change 3 times a week with home health care. Wound cultures were collected. Baseline bloodwork from recent hospital stay reviewed and showed A1c of greater than 16. 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 Patient was also advised on protein supplementation and vitamin C supplementation to promote wound healing. Patient verbalized understanding. Patient will follow up at wound healing center in one week or sooner if needed. Given the delayed wound healing, will apply for advanced skin substitute. This note was generated with [employer] dictation software. It may contain incorrect words, spelling, and punctuation that were not noted in checking the note before signing. 45 minutes was spent today going over patient's physical exam, prior records, lab work, and educating the patient and family on plan of care. Office Visits / Consults: [id number] OV L4 Est 111xxx-113xx: [id number] Tatiana musc/fascia 20 sq cm/< Add On Codes: 99302 Tatiana musc/fascia add-on - X2
--- NOTE | 2021-01-19 07:27 | WC ---
Patient's grandma stopped at the wound center concerned that patient was d/c from [facility] and they haven't had any nurse or HH nurse come to the house yet and he has a NPT dressing on. I spoke to Lexis JUNIOR at [facility] who states she is still trying to get a HH agency to agree to seeing patient and thus far, no one has accepted care. She has attempted over 10 agencies and still no luck. Spoke to Arline Willis about getting an order to have patient come here for NV/Vac changes, an order was written and patient was scheduled for this Sunday for a nurse [facility]. An order was also placed with [facility] for additional supplies as needed.
== END 2021-01-09 23:59 ==
LOC: WC 12:31
PROVIDERS: PCP Pediatrics; Referring Provider Surgery; Visit Provider Nurse Practitioner Family
DX: T81.89XA Other complications of procedures, not elsewhere classified, initial encounter (principal); Y83.8 Other surgical procedures as the cause of abnormal reaction of the patient, or of later complication, without mention of misadventure at the time of the procedure; L02.416 Cutaneous abscess of left lower limb; E10.65 Type 1 diabetes mellitus with hyperglycemia; Z91.19 Patient's noncompliance with other medical treatment and regimen; J45.909 Unspecified asthma, uncomplicated; Z79.4 Long term (current) use of insulin; K21.9 Gastro-esophageal reflux disease without esophagitis; Z79.51 Long term (current) use of inhaled steroids; Z79.899 Other long term (current) drug therapy
CPT/HCPCS: 11042; 11045; 87070; 87075; 87077; 87186; 87205; 97605; 99213; G0463

== ENCOUNTER 2020-12-24 05:14 | Inpatient (IN) | payer MEDICAID, SELFPAY ==
[2020-12-23 12:48] VITALS: BMI 47.9
[2020-12-24] VITALS (33 sets, daily range): BP systolic 86–147; BP diastolic 42–110; PULSE 107–140; RESP 12–34; TEMP 34.7–38.8; O2SAT 96–100; BMI 20.7; BMI 19.9
--- NOTE | 2020-12-24 05:25 | RAD_ITS ---
HISTORY: ALTERED LOCBREATHING FAST ADDITIONAL HISTORY: None provided. EXAMINATION/TECHNIQUE: XR Chest 1 View AP/PA Number of images including paperwork: 1 COMPARISON: 12/09/2020 FINDINGS: LUNGS AND PLEURA: No consolidation, mass or pleural effusion. CARDIAC SILHOUETTE: Unremarkable. MEDIASTINUM AND MERCEDES: Unremarkable. UPPER ABDOMEN: Unremarkable. SKELETON AND SOFT TISSUES: No acute skeletal findings. OTHER DEVICES AND HARDWARE: None. RAD/Chest 1 View (Portable) IMPRESSION: No acute cardiopulmonary abnormality. at 0615 Reported and signed by: Yael Garner MD Electronically Signed: Yael Garner MD at 6:15 EST Tel , Service support ,
--- NOTE | 2020-12-24 05:25 | EKG12_ITS ---
Test Reason : Blood Pressure : / mmHG Vent. Rate : 119 BPM Atrial Rate : 119 BPM P-R Int : 126 ms QRS Dur : 090 ms QT Int : 362 ms P-R-T Axes : 066 078 041 degrees QTc Int : 509 ms Sinus tachycardia with Premature ventricular complexes or Fusion complexes Otherwise normal ECG Confirmed by SHERMAN CASTILLO, KEVIN ([id number]), assignment desk editor AYESHA VALLE ([id number]) on 12/27/2020 12:33:31 P M Referred By: JAMES Confirmed By:SUSY WHITAKER MD
[2020-12-24] MEDS: 0.9% Normal Saline 1,000 ML 999 ML IV ×2 (05:36→05:37)
--- NOTE | 2020-12-24 05:40 | RAD_ITS ---
HISTORY: KNOWN WOUND TO POSTERIOR LT THIGH WITH RECENT DEBRIDEMENT OF WOUND (12/10/20) ADDITIONAL HISTORY: None provided. EXAMINATION/TECHNIQUE: XR Femur Min 2 Views Left Number of images including paperwork: 4 COMPARISON: None FINDINGS: BONES: No acute fracture. JOINTS: No subluxation. SOFT TISSUES: No distinct foreign body. Soft tissue defect in the posterior mid thigh. Youssef catheter. RAD/Femur Min 2 Views IMPRESSION: No acute osseous abnormality. Soft tissue defect in the posterior mid thigh. at 0621 Reported and signed by: Yael Garner MD Electronically Signed: Yael Garner MD at 6:20 EST Tel , Service support ,
[2020-12-24 05:42] LABS: Absolute Lymphocyte Count 2.77 X10^3/uL (0.83-4.51); Absolute Neutrophil Count 18.9 X10^3/uL (2.0-7.7); Basophil# 0.26 X10^3/uL; Eosinophil# 0.12 X10^3/uL; Eosinophils% 0.5 % (0-5); Hematocrit 50.4 % (40-54); Hemoglobin 16.9 g/dL (13.0-16.5); Lymphocyte # 2.77 X10^3/ul (4.0); Lymphocyte % 11.2 % (19-41); Mean Corp Hgb Conc 33.5 g/dL (32-36); Mean Corpuscular Hgb 30.4 pg (27.0-32.0); Mean Corpuscular Volume 90.6 fL (80-94); Mean Platelet Vol. 9.4 fl (6.2-12.0); Monocyte# 1.79 X10^3/uL; Monocyte% 7.2 % (0-10); NRBC Flagged by Analyzer 0 % (0-5); Neutrophil # 18.94 X10^3/uL (2.7-7.7); Neutrophil % 76.5 % (47-70); POSITIVE COUNT YES; POSITIVE DIFFERENTIAL YES; RBC Distribution Width CV 12.2 % (11.6-14.6); RBC Distribution Width SD 40.3 fl (35.1-43.9); Red Blood Count 5.56 M/mm3 (4.6-6.2); White Blood Count 24.8 K/mm3 (4.4-11.0)
[2020-12-24 05:43] LABS: Differential Indicated SCAN CRITERIA MET; Platelet Count 799 K/mm3 (150-450)
[2020-12-24 05:50] LABS: Mucous, Urine 0 SEEN /hpf (<or=2+); Red Blood Cells-Urine 0 SEEN /hpf (0-5); Squamous Epithelial Cells - UA 0 SEEN /hpf (0-5); White Blood Cells 0 SEEN /hpf (0-5)
[2020-12-24 05:51] LABS: Bedside Glucose > 500 mg/dL (70-110)
[2020-12-24 05:52] LABS: International Normalized Ratio 1.3; Prothrombin Time (Protime)PT. 15.5 SECONDS (11.7-14.9)
[2020-12-24 05:53] LABS: Partial Thromboplast Time 30.6 Seconds (24.1-36.2)
[2020-12-24 05:54] LABS: Color, Urine Yellow (Yellow); Glucose, Dipstick 1000 mg/dl (Normal); Leukocyte Esterase-Dipstick Negative /ul (Negative); Nitrite-Dipstick Negative (Negative); Occult Blood-Urine 25 /ul (Negative); Protein-Dipstick 100 mg/dl (Negative); Urine Bilirubin Dipstick Negative (Negative); Urine Clarity Clear (Clear); Urine Urobilinogen Normal (Normal)
[2020-12-24] MEDS: Sodium Bicarbonate 8.4% 50 ML Syringe 50 MEQ IV ×3 (06:04→10:10)
[2020-12-24 06:05] LABS: AST(SGOT) 14 U/L (15-37); Alanine Aminotransfer ALT/SGPT 21 U/L (16-61); Albumin, Serum 4.6 g/dL (3.2-5.0); Alkaline Phosphatase 210 U/L (45-117); Anion Gap 24 (5-15); BUN 13 mg/dL (7-18); BUN/Creat Ratio 8.5 RATIO (10-20); Calcium,Total 8.8 mg/dL (8.5-10.1); Chloride 96 mmol/L (98-107); Creatinine, Serum 1.53 mg/dL (0.70-1.30); EST Glomerular Filtration Rate 62 mL/min (>60); Est Glom Filt Rate - Afr Amer 75 mL/min (>60); Estimated Creatinine Clearance 77.78 ml/min; Globulin 4.8 g/dL (2.2-4.2); Glucose 701 mg/dL (74-106); Magnesium 2.6 mg/dL (1.6-2.6); Potassium 4.4 mmol/L (3.5-5.1); Protein, Total 9.4 g/dL (6.4-8.2); Sodium Level 126 mmol/L (136-145)
[2020-12-24 06:06] LABS: Lactic Acid 3.7 mmol/L (0.4-1.9)
[2020-12-24 06:12] LABS: Platelet Estimate MKD INC (ADEQ)
[2020-12-24 06:13] LABS: Ketone-Dipstick 150 mg/dl (Negative)
[2020-12-24 06:16] LABS: Coarse Granular Cast 0-5 SEEN /lpf (0-5 /lpf)
[2020-12-24 06:17] LABS: Amorphous Sediment 3+; Bacteria RARE /hpf (None Seen)
--- NOTE | 2020-12-24 06:18 | ED.RN ---
instructed per dr. loera to hold off starting the insulin drip until 2 liters of fluids are administered and a blood glucose recheck is performed.
--- NOTE | 2020-12-24 06:20 | CPS ---
critical values notified to dr. loera
[2020-12-24 06:21] LABS: Allen Test Positive; Base Excess < -30 mmol/L (-2 to +2); Bicarbonate 2.3 mmol/L (22-26); Blood Gas Specimen Type ART; O2 Delivery Device NRB; PO2 157 mmHG (75-100); SITE R Fem; SO2 96 % (95-99); Total Carbon Dioxide < 5 mmol/L; pCO2 16.4 mmHg (35-45); pH 6.75 (7.35-7.45)
--- NOTE | 2020-12-24 06:23 | ED.DCSUM_ITS ---
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 He is pale, cold with delayed capillary refill. He is unable to contribute with regards to history and minimally with regards to physical exam. View of records reveal he was recently was admitted for thigh abscess. Squad states he should have a wound VAC on. Prior similar symptoms: Yes Recent Illness/Hospitalization: Yes - Past Medical History (1) Abscess of left thigh Status: Acute (2) Delayed surgical wound healing Status: Acute (3) Noncompliance Status: Acute (4) Nonhealing surgical wound Status: Acute Comment: Left thigh (5) Uncontrolled type 1 diabetes mellitus Status: Acute (6) GERD (gastroesophageal reflux disease) Status: Chronic (7) Psychosocial problem Status: Chronic Past Medical History - Allergies and Home Meds Allergies/Adverse Reactions: Allergies No Known Allergies Allergy (Verified 12/24/20 05:39) Primary Care Physician: Tori Butler MD [Primary Care Provider] - Prior records reviewed: Yes Surgical History: noncontributory, - - Right knee surgery. Lives: With Family Smoking Status: Never smoker Alcohol: None Drugs: None - Family History Maternal Family History: Family History (Last Reviewed 10/27/20 @ 11:[address] Will Mason MD) Other Asthma CVA (cerebral vascular accident) Diabetes Hypertension Thyroid disorder Family History: Reports: - - Patient with no market maternal or paternal family history including heart disease, diabetes, cancer. Paternal Family History: Family History (Last Reviewed 10/27/20 @ 11:[address] Will Mason MD) Other Asthma CVA (cerebral vascular accident) Diabetes Hypertension Thyroid disorder Family History: Reports: - - Patient with no market maternal or paternal family history including heart disease, diabetes, cancer. Review of Systems ROS: Unable to Obtain Physical Exam Vital Signs/Narrative: Vital Signs Temp Pulse Resp BP Pulse Ox 12/24/20 05:53 95.2 F L 118 H 34 H 146/110 H 100 12/24/20 05:38 119 H 34 H 141/99 H 100 12/24/20 05:15 95.6 F L 122 H 30 H 141/99 H 96 Inital Vital Signs reviewed: Yes General: Cachectic, Acute Distress Head: Normocephalic, Atraumatic Eyes: Perrl. Negative for: EOMI, Pale conjunctiva, Scleral icterus ENT: No rhinorrhea, TM's clear Neck: Supple, No lymphadenopathy, No JVD Cardiovascular: Regular rhythm, No murmurs, Normal S1, Tachycardia Respiratory: CTA bilaterally, Chest nontender, Retractions, - - Kussmallrespiratory pattern Abdomen: Soft, Nontender, Nondistended, Normal bowel sounds Rectal: Deferred : - - Circumcised male penis without lesions or discharge. Testes centered bilaterally. Extremities: Nontender, No edema Skin: No Trauma, Pallor, Rash - Fine lenticular rash with delayed capillary refill. He is cold to the touch.. Negative for: Normal color, No rash, Diaphoresis, Jaundice Neurological: Cranial nerves II-XII grossly intact, Normal DTR - There is no clonus or Babinski sign., - - Moves his extremities to noxious stimuli.. Negative for: Alert, Oriented x3, Normal Gait Psychological: - - Unable to determine Diagnostic/Tx/Re-eval Chest X-Ray - ED: 1 View, 2 View - 2 view x-ray of the left femur reveals a significant skin defect. There is no subcutaneous air. There is no periosteal elevation., Read by ED Physician, Normal, Heart, Lungs, Mediastinum, Bony Structures, No Acute Disease, - Impressions Chest X-Ray 12/24/20 05:25 IMPRESSION: No acute cardiopulmonary abnormality. at 0615 Reported and signed by: Yael Garner MD Electronically Signed: Yael Garner MD at 6:15 EST Tel , Service support , Femur X-Ray 12/24/20 05:40 IMPRESSION: No acute osseous abnormality. Soft tissue defect in the posterior mid thigh. at 0621 Reported and signed by: Yael Garner MD Electronically Signed: Yael Garner MD at 6:20 EST Tel , Service support , 12/24/20 05:25 Chest 1 View (Portable) [RAD] Stat 12/24/20 05:40 Femur Min 2 Views [RAD] Stat Laboratory Results 12/24/20 12/24/20 12/24/20 05:32 05:35 05:35 WBC 24.8 H RBC 5.56 Hgb 16.9 H Hct 50.4 MCV 90.6 MCH 30.4 MCHC 33.5 RDW Std Deviation 40.3 RDW Coeff of Rabia 12.2 Plt Count 799 H* MPV 9.4 Immature Gran % (Auto) 3.600 H Neut % (Auto) 76.5 H Lymph % (Auto) 11.2 L [place] % (Auto) 7.2 Eos % (Auto) 0.5 Baso % (Auto) 1.0 Absolute Neuts (auto) 18.9 H Absolute Lymphs (auto) 2.77 Nucleated RBC % 0 Diff Path Review May foll Platelet Estimate MKD INC PT 15.5 H INR 1.3 APTT 30.6 Specimen Type Sample Site pH Bicarbonate Actual Total CO2 Base Excess O2 Saturation ABG pCO2 ABG pO2 Hector Test O2 Delivery Device Liter Flow Sodium Potassium Chloride Carbon Dioxide Anion Gap BUN Creatinine Estim Creat Clear Calc Est GFR (MDRD) Af Amer Est GFR (MDRD) Non-Af BUN/Creatinine Ratio Glucose Lactic Acid Calcium Magnesium Total Bilirubin AST ALT Alkaline Phosphatase Total Protein Albumin Globulin Albumin/Globulin Ratio Urine Color Urine Clarity Urine pH Ur Specific Melvin Urine Protein Urine Glucose (UA) Urine Ketones Urine Occult Blood Urine Nitrite Urine Bilirubin Urine Urobilinogen Ur Leukocyte Esterase Urine RBC Urine WBC Ur Squamous Epith Cells Amorphous Sediment Urine Bacteria Coarse Granular Casts Urine Mucus Acetone Level POC Glucose > 500 H* 12/24/20 12/24/20 12/24/20 05:35 05:35 05:35 WBC RBC Hgb Hct MCV MCH MCHC RDW Std Deviation RDW Coeff of Rabia Plt Count MPV Immature Gran % (Auto) Neut % (Auto) Lymph % (Auto) [place] % (Auto) Eos % (Auto) Baso % (Auto) Absolute Neuts (auto) Absolute Lymphs (auto) Nucleated RBC % Diff Path Review Platelet Estimate PT INR APTT Specimen Type Sample Site pH Bicarbonate Actual Total CO2 Base Excess O2 Saturation ABG pCO2 ABG pO2 Hector Test O2 Delivery Device Liter Flow Sodium 126 L Potassium 4.4 Chloride 96 L Carbon Dioxide 6.0 L* Anion Gap 24 H BUN 13 Creatinine 1.53 H Estim Creat Clear Calc 77.78 Est GFR (MDRD) Af Amer 75 Est GFR (MDRD) Non-Af 62 BUN/Creatinine Ratio 8.5 L Glucose 701 H* Lactic Acid 3.7 H* Calcium 8.8 Magnesium 2.6 Total Bilirubin 0.70 AST 14 L ALT 21 Alkaline Phosphatase 210 H Total Protein 9.4 H Albumin 4.6 Globulin 4.8 H Albumin/Globulin Ratio 1.0 Urine Color Urine Clarity Urine pH Ur Specific Melvin Urine Protein Urine Glucose (UA) Urine Ketones Urine Occult Blood Urine Nitrite Urine Bilirubin Urine Urobilinogen Ur Leukocyte Esterase Urine RBC Urine WBC Ur Squamous Epith Cells Amorphous Sediment Urine Bacteria Coarse Granular Casts Urine Mucus Acetone Level LARGE H POC Glucose 12/24/20 12/24/20 05:45 05:53 WBC RBC Hgb Hct MCV MCH MCHC RDW Std Deviation RDW Coeff of Rabia Plt Count MPV Immature Gran % (Auto) Neut % (Auto) Lymph % (Auto) [place] % (Auto) Eos % (Auto) Baso % (Auto) Absolute Neuts (auto) Absolute Lymphs (auto) Nucleated RBC % Diff Path Review Platelet Estimate PT INR APTT Specimen Type ART Sample Site R Fem pH 6.75 L* Bicarbonate Actual 2.3 L Total CO2 < 5 Base Excess < -30 L O2 Saturation 96 ABG pCO2 16.4 L* ABG pO2 157 H Hector Test Positive O2 Delivery Device NRB Liter Flow 15.0 Sodium Potassium Chloride Carbon Dioxide Anion Gap BUN Creatinine Estim Creat Clear Calc Est GFR (MDRD) Af Amer Est GFR (MDRD) Non-Af BUN/Creatinine Ratio Glucose Lactic Acid Calcium Magnesium Total Bilirubin AST ALT Alkaline Phosphatase Total Protein Albumin Globulin Albumin/Globulin Ratio Urine Color Yellow Urine Clarity Clear Urine pH 5.0 Ur Specific Melvin 1.020 Urine Protein 100 H Urine Glucose (UA) 1000 H Urine Ketones 150 H Urine Occult Blood 25 H Urine Nitrite Negative Urine Bilirubin Negative Urine Urobilinogen Normal Ur Leukocyte Esterase Negative Urine RBC 0 SEEN Urine WBC 0 SEEN Ur Squamous Epith Cells 0 SEEN Amorphous Sediment 3+ Urine Bacteria RARE Coarse Granular Casts 0-5 SEEN Urine Mucus 0 SEEN Acetone Level POC Glucose - EKG Initial EKG Interpretation: Sinus Tachycardia - Sinus tachycardia with a ventricular rate of 119. There is a premature complex. There is significant artifact. This is due to his respiratory pattern. DC interval 226 ms. Duration is 90 ms. QT duration 362 ms. [place] is normal. His T waves are not suggestive of hyperkalemia. - Medical Decision Making Presents with decreased mental status and Kussmaul respiratory pattern concern patient is in DKA secondary to infection lateral medial left thigh. Based on description the wound was in down to the subcutaneous tissue. There is now muscle exposed. It has a necrotic eschar noted. There is no crepitus. Because concern patient is in DKA and septic the DKA and septic order set were initiated. Nurse was instructed not to start the insulin till patient received 2 L of normal saline. Lactate is elevated 3.7. Based on organisms that grew from his wound he was started on Zosyn, vancomycin and clindamycin. ABG reveals a significant metabolic acidosis with an AA gradient. Because his pH was 6 7 he was given 1 amp of bicarb. Glucose is greater than 700 with a CO2 of 6. Serum and urine were positive for ketones. The hospitalist was paged and informed of patient's condition and need for admission ICU. The hospitalist will see patient. Since he is able to phonate and control his secretions he was not intubated. Reluctant to depress his respiratory rate since he is so profoundly acidotic. - Critical Care Time Critical care time (excluding procedures): 30-74 minutes - Care time 42 minutes which included obtaining history, review of charts, performing physical exam, documentation, interpretation of laboratory results and radiologic imaging. 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
--- NOTE | 2020-12-24 06:41 | NURSING ---
[facility] dka, severe sepsis, wound infection, elevated creatinine
[2020-12-24] MEDS: Etomidate 20 MG/10 ML Vial 14 MG IV (06:54)
[2020-12-24] MEDS: Succinylcholine Chloride 200 MG/10 ML Vial 100 MG IV (06:56)
--- NOTE | 2020-12-24 06:59 | NURSING ---
ICU 7
--- NOTE | 2020-12-24 07:03 | HP.PCM_ITS ---
History of Present Illness Date of Admission: 12/24/20 Chief Complaint: altered mental status The patient is a 20 year old M with a PMH as outlined which includes Type 1 diabetes mellitus with recurrent DKA, and a right leg ulcer for which he required debridement, and was discharged on 12/13/2020, on a wound vac. Patient was brought back to the ED today o/a of worsening of his leg wound, and confusion. Patient was very confused at the time I saw him in the ED, and couldnt tell me why he was brought in to the ED, where his wound vac was, and couldnt give me any meaningful history. On admission, he was hypothermic, with temperature of 94.4F, with BP of 134/90, RR of 125 and RR of 32. LAbs showed sodium of 132, bicarb of 6, anion gap of 24, Cr of 1.32, lactic acid of 3.7 and calcium of 7.7. CBC showed wbc of 24.8, Hb of 16.9 and platelets of 799. Blood glucose was 701. ABG showed pH of 6.75, with pCO2 of 16.4. After discussion with pump tester, patient was emergently intubated in the ED o/a of severe metabolic acidosis, and to protect his airway, and was admitted to the ICU to be managed for DKA and acute metabolic acidosis and sepsis due to infected RLE ulcer. [] Past Medical History Past Medical History (Chronic Problems): Chronic Problems (Last Reviewed 10/27/20 @ 11:[address] Will Mason MD) Psychosocial problem (Chronic) Noncompliance with diabetes treatment (Chronic) Diabetes (Chronic) History of type 1 diabetes mellitus (Chronic) DKA, type 1 (Chronic) Asthma (Chronic) GERD (gastroesophageal reflux disease) (Chronic) Medical History: Medical History (Last Reviewed 10/27/20 @ 11:[address] Will Mason MD) femur surgery Diabetes mellitus type 1 E10.9 Allergies No Known Allergies Allergy (Verified 12/24/20 05:39) Home Medications: Ambulatory Orders Medication Instructions Recorded Albuterol Inhaler [Ventolin Hfa] 2 puff INHALATION Q4H PRN PRN 02/15/19 Fluticasone 44 Mcg [Flovent 44 Mcg] 2 puff IH BID 11/12/19 Insulin Lispro [Humalog Kwikpen] See Protocol SC TID 12/09/20 Omeprazole [Prilosec] 20 mg PO DAILY 12/09/20 Potassium Chloride Oral Tablet 20 meq PO BIDCM 12/09/20 [K-Dur] Insulin Glargine [Lantus SoloStar 20 units SQ QHS 12/24/20 Pen] Surgical History: Surgical History (Last Reviewed 10/27/20 @ 11:[address] Will Mason MD) Hx of knee surgery Z98.890 Surgical History: noncontributory, - - Right knee surgery. Psychiatric History: No pertinent psych hx Lives: With Family Smoking Status: Never smoker Alcohol: None Drugs: None - *Family History Maternal Family History: Family History (Last Reviewed 10/27/20 @ 11:[address] Will Mason MD) Other Asthma CVA (cerebral vascular accident) Diabetes Hypertension Thyroid disorder History Items: - - Patient with no market maternal or paternal family history including heart disease, diabetes, cancer. Paternal Family History: Family History (Last Reviewed 10/27/20 @ 11:[address] Will Mason MD) Other Asthma CVA (cerebral vascular accident) Diabetes Hypertension Thyroid disorder History Items: - - Patient with no market maternal or paternal family history including heart disease, diabetes, cancer. Review of Systems Unable to obtain accurate/complete ROS d/t: patient is very confused and unable to give any information VTE Information - Inpt Only VTE Present on Admission: No VTE Pharm Prophylaxis ordered?: Yes Patient Problems: Active and Suspected Problems (Last Reviewed 10/27/20 @ 11:[address] 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 (Acute) Encephalopathy acute (Acute) Hypothermia not due to cold exposure (Acute) Sinus tachycardia by electrocardiogram (Acute) - Physical Exam Vitals/I&O's: Vital Signs Temp Pulse Resp BP Pulse Ox 94.4 F L 125 H 32 H 134/90 H 100 12/24/20 06:32 12/24/20 06:32 12/24/20 06:32 12/24/20 06:32 12/24/20 06:32 Oxygen Flow Rate (L/min) 15 Oxygen Delivery Method Non-Rebreather Weight: 157 lb 6.561 oz Body Mass Index (BMI) 20.7 Finger Stick Blood Glucose 586 General: Confused, Disoriented, Lethargic HEENT: Atraumatic, PERRLA, EOMI, Normocephalic Oral: Dry Mucosa Neck: Supple, No JVD, Negative Carotid Bruits Lungs: Clear to auscultation, Normal air movement, No rhonchi, No wheeze, Tachypneic, Using Accessory Muscles Cardiovascular: Normal S1, Normal S2, No murmurs, Tachycardic Abdomen: Bowel Sounds Present, Soft, Non Tender, Non-Distended, No Hepato- splenomegaly Extremities: No clubbing, No cyanosis, No edema, Capillary Refill Less than 3 Seconds Skin: - - large ulcer on the right lateral thigh; floor of ulcer is very necrotic. Wound vac not in place; wound looks much worse than prior, from old wound pictures in EMR Musculoskeletal: No Tenderness to Palpation of Joints or Extremities Lymphatic: No Cervical, Supraclavicular, or Inguinal Adenopathy Neurological: Cranial nerves II-XII grossly intact Psych/Mental Status: - - confused, lethargic Laboratory Results 12/24/20 05:32: POC Glucose > 500 H* 12/24/20 05:35: WBC 24.8 H, RBC 5.56, Hgb 16.9 H, Hct 50.4, MCV 90.6, MCH 30.4, MCHC 33.5, RDW Std Deviation 40.3, RDW Coeff of Rabia 12.2, Plt Count 799 H*, MPV 9.4, Immature Gran % (Auto) 3.600 H, Neut % (Auto) 76.5 H, Lymph % (Auto) 11.2 L , [place] % (Auto) 7.2, Eos % (Auto) 0.5, Baso % (Auto) 1.0, Absolute Neuts (auto) 18.9 H, Absolute Lymphs (auto) 2.77, Nucleated RBC % 0, Diff Path Review March johnny, Platelet Estimate MKD INC 12/24/20 05:35: PT 15.5 H, INR 1.3, APTT 30.6 12/24/20 05:35: Sodium 126 L, Potassium 4.4, Chloride 96 L, Carbon Dioxide 6.0 L*, Anion Gap 24 H, BUN 13, Creatinine 1.53 H, Estim Creat Clear Calc 77.78, Est GFR (MDRD) Af Amer 75, Est GFR (MDRD) Non-Af 62, BUN/Creatinine Ratio 8.5 L, Glucose 701 H*, Calcium 8.8, Magnesium 2.6, Total Bilirubin 0.70, AST 14 L, ALT 21, Alkaline Phosphatase 210 H, Total Protein 9.4 H, Albumin 4.6, Globulin 4.8 H , Albumin/Globulin Ratio 1.0 12/24/20 05:35: Lactic Acid 3.7 H* 12/24/20 05:35: Acetone Level LARGE H 12/24/20 05:35: Hemoglobin A1c Pending 12/24/20 05:45: Urine Color Yellow, Urine Clarity Clear, Urine pH 5.0, Ur Specific [place] 1.020, Urine Protein 100 H, Urine Glucose (UA) 1000 H, Urine Ketones 150 H, Urine Occult Blood 25 H, Urine Nitrite Negative, Urine Bilirubin Negative, Urine Urobilinogen Normal, Ur Leukocyte Esterase Negative, Urine RBC 0 SEEN, Urine WBC 0 SEEN, Ur Squamous Epith Cells 0 SEEN, Amorphous Sediment 3+, Urine Bacteria RARE, Coarse Granular Casts 0-5 SEEN, Urine Mucus 0 SEEN 12/24/20 05:53: Specimen Type ART, Sample Site R Fem, pH 6.75 L*, Bicarbonate Actual 2.3 L, Total CO2 < 5, Base Excess < -30 L, O2 Saturation 96, ABG pCO2 16.4 L*, ABG pO2 157 H, Hector Test Positive, O2 Delivery Device NRB, Liter Flow 15.0 12/24/20 06:45: Sodium Pending, Potassium Pending, Chloride Pending, Carbon Dioxide Pending, Anion Gap Pending, BUN Pending, Creatinine Pending, Est GFR (MDRD) Af Amer Pending, Est GFR (MDRD) Non-Af Pending, BUN/Creatinine Ratio Pending, Glucose Pending, Calcium Pending Diagnostic Data Chest X-Ray 12/24/20 05:25 IMPRESSION: No acute cardiopulmonary abnormality. at 0615 Reported and signed by: Yael Garner MD Electronically Signed: Yael Garner MD at 6:15 EST Tel , Service support , Femur X-Ray 12/24/20 05:40 IMPRESSION: No acute osseous abnormality. Soft tissue defect in the posterior mid thigh. at 0621 Reported and signed by: Yael Garner MD Electronically Signed: Yael Garner MD at 6:20 EST Tel , Service support , Current Medications Insulin Human Lispro 100 unit/ (Sodium Chloride) 100 mls @ 7.14 mls/hr CONT INF .Q14H1M LILLY; Protocol Last Admin: 12/24/20 06:44 Dose: 7.14 units/hr, 7.1 mls/hr Documented by: Vancomycin HCl 1,750 mg/ (Sodium Chloride) 535 mls @ 250 mls/hr IV X1 ONE Stop: 12/24/20 07:53 Assessment/Plan All Active Problems (Last Reviewed 10/27/20 @ 11:[address] 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 (Acute) Encephalopathy acute (Acute) Hypothermia not due to cold exposure (Acute) Sinus tachycardia by electrocardiogram (Acute) RADHA (acute kidney injury) (Acute) 20 y/o admitted with a complaint of confusion #Anion gap metabolic acidosis due to DKA * DKA likely due to noncompliance and sepsis from infected RLE ulcer * blood sugar was in the 700s on admission, with anion gap of 24 * admit to ICU * started on insulin drip; will continue * accuchecks q1hrly per DKA protocol * BMP q4hrly * hydrate with IVF aggressively per DKA protocol' switch to D5 1/2 S when blood sugar gets to 250 and below * critical care consulted- discussed with pump tester in ICU * patient emergently intubated o/a of worsening severe metabolic acidosis due to DKA, as he was very tachypneic and tachycardic and hemodynamically unstable and unable to protect his airway * #DKA in a known type 1 diabetes mellitus * as above * #Acute hypoxic respiratory failure * patient emergently intubated due to inability to protect his airway * critical care on board * vent settings as per critical care. * breathing treatment with bronchodilators * #Severe sepsis due to infected RLE ulcer * patient was discharged home a few weeks ago with a wound vac in place after had debridement of the RLE ulcer * patient came back without the wound vac, and he does have a history of noncompliance. * Patient started on IV vancomycin and IV Zosyn. * get Blood cultures and wound cultures * Dr. Laura was consulted as she did his previous debridement * consult ID * #RLE ulcer: as under severe sepsis #Lactic acidosis: due to sepsis. being hydrated with IVF; will trend lactic acid. DVT prophylaxis: lovenox Code status: unable to discuss as patient is very confused and not able to answer any questions meaningfully Inpatient E&M: [id number] Init Hosp L3
[2020-12-24 07:05] LABS: Anion Gap 24 (5-15); BUN 13 mg/dL (7-18); BUN/Creat Ratio 9.8 RATIO (10-20); Calcium,Total 7.7 mg/dL (8.5-10.1); Chloride 104 mmol/L (98-107); Creatinine, Serum 1.32 mg/dL (0.70-1.30); EST Glomerular Filtration Rate 74 mL/min (>60); Est Glom Filt Rate - Afr Amer 89 mL/min (>60); Estimated Creatinine Clearance 90.15 ml/min; Glucose 596 mg/dL (74-106); Potassium 4.8 mmol/L (3.5-5.1); Sodium Level 132 mmol/L (136-145)
--- NOTE | 2020-12-24 07:09 | RAD_ITS ---
HISTORY: ETT AND OG PLACEMENT ADDITIONAL HISTORY: None provided. EXAMINATION/TECHNIQUE: XR Chest 1 View AP/PA Number of images including paperwork: 2 COMPARISON: 12/24/2020 FINDINGS: LUNGS AND PLEURA: No consolidation, mass or pleural effusion. CARDIAC SILHOUETTE: Unremarkable. MEDIASTINUM AND MERCEDES: Unremarkable. UPPER ABDOMEN: Unremarkable. SKELETON AND SOFT TISSUES: No acute skeletal findings. OTHER DEVICES AND HARDWARE: Endotracheal tube tip 3.3 cm above the judi. Gastric tube tip and side-port in the stomach. RAD/Chest 1 View (Portable) IMPRESSION: Endotracheal tube and gastric tube in place. at 0759 Reported and signed by: Yael Garner MD Electronically Signed: Yael Garner MD at 7:27 EST Tel , Service support ,
[2020-12-24 07:20] LABS: Bedside Glucose > 500 mg/dL (70-110)
--- NOTE | 2020-12-24 07:23 | PN_ITS ---
Patient Problems: Active and Suspected Problems (Last Reviewed 10/27/20 @ 11:[address] 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 Discussed plan of care with patient as he is somewhat alert and can follow commands on sedation including planned evaluation per Dr. Landin with plastic surgery as concern for left thigh wound with likely OR plans. Patient denies any pain at this time but again is sedated. Patient not obvious evidence of chills, nausea, emesis, abdominal pain, chest pain but again intubated, sedated. Objective: Physical Examination: General: Patient intubated, sedated but is alert, will answer some questions using his thumb for yes and no, seated upright in the ED bed, fatigued appearing. Skin: normal color, turgor, no icterus, cyanosis except notable left lateral thigh wound with serosanguineous drainage, indurated surrounding tissue, foul- smelling, 12 x 6 x 1.3 cm region. HEENT: AT/NC, EOMI, PERRLA, MMM, no carotid bruits or JVD noted. Lungs: Intubated, sedated, symmetric rise, no obvious current distress evident, no rales, ronchi or wheezing. Heart: Tachycardic with regular rhythm; no gallop, rub audible. Abdomen: soft, NTTP, ND, normal BS, no HSM. Extremities: no cyanosis or clubbing, see skin. Neurological: Patient sedated, intubated, is currently awake and will follow commands, answering some questions with yes no with some, cognitive function not baseline intact given this presentation, pupils equally reactive to light and accomodation, cranial nerves difficult to assess given intubated and sedated status but grossly normal aside those affected, moving extremities, strength severely global decreased given acute presentation and sedation. Psychiatric: affect appears lethargic, no acute evidence of depressive or anxiety feelings. Vitals/I&O's: Vital Signs Temp Pulse Resp BP Pulse Ox 95.1 F L 124 H 24 H 147/96 H 100 12/24/20 07:14 12/24/20 07:14 12/24/20 07:14 12/24/20 07:14 12/24/20 07:14 Oxygen Flow Rate (L/min) 15 Oxygen Delivery Method Mechanical Ventilator Weight: 157 lb 6.561 oz Body Mass Index (BMI) 20.7 Finger Stick Blood Glucose 586 Intake and Output for Last 24 Hours 12/22/20 12/23/20 12/24/20 23:59 23:59 23:59 Intake Total 2205 / 2206 Output Total 1999 Balance Laboratory Results 12/24/20 05:32: POC Glucose > 500 H* 12/24/20 05:35: WBC 24.8 H, RBC 5.56, Hgb 16.9 H, Hct 50.4, MCV 90.6, MCH 30.4, MCHC 33.5, RDW Std Deviation 40.3, RDW Coeff of Rabia 12.2, Plt Count 799 H*, MPV 9.4, Immature Gran % (Auto) 3.600 H, Neut % (Auto) 76.5 H, Lymph % (Auto) 11.2 L , [place] % (Auto) 7.2, Eos % (Auto) 0.5, Baso % (Auto) 1.0, Absolute Neuts (auto) 18.9 H, Absolute Lymphs (auto) 2.77, Nucleated RBC % 0, Diff Path Review March johnny, Platelet Estimate MKD INC 12/24/20 05:35: PT 15.5 H, INR 1.3, APTT 30.6 12/24/20 05:35: Sodium 126 L, Potassium 4.4, Chloride 96 L, Carbon Dioxide 6.0 L*, Anion Gap 24 H, BUN 13, Creatinine 1.53 H, Estim Creat Clear Calc 77.78, Est GFR (MDRD) Af Amer 75, Est GFR (MDRD) Non-Af 62, BUN/Creatinine Ratio 8.5 L, Glucose 701 H*, Calcium 8.8, Magnesium 2.6, Total Bilirubin 0.70, AST 14 L, ALT 21, Alkaline Phosphatase 210 H, Total Protein 9.4 H, Albumin 4.6, Globulin 4.8 H , Albumin/Globulin Ratio 1.0 12/24/20 05:35: Lactic Acid 3.7 H* 12/24/20 05:35: Acetone Level LARGE H 12/24/20 05:35: Hemoglobin A1c Pending 12/24/20 05:45: Urine Color Yellow, Urine Clarity Clear, Urine pH 5.0, Ur Specific [place] 1.020, Urine Protein 100 H, Urine Glucose (UA) 1000 H, Urine Ketones 150 H, Urine Occult Blood 25 H, Urine Nitrite Negative, Urine Bilirubin Negative, Urine Urobilinogen Normal, Ur Leukocyte Esterase Negative, Urine RBC 0 SEEN, Urine WBC 0 SEEN, Ur Squamous Epith Cells 0 SEEN, Amorphous Sediment 3+, Urine Bacteria RARE, Coarse Granular Casts 0-5 SEEN, Urine Mucus 0 SEEN 12/24/20 05:53: Specimen Type ART, Sample Site R Fem, pH 6.75 L*, Bicarbonate Actual 2.3 L, Total CO2 < 5, Base Excess < -30 L, O2 Saturation 96, ABG pCO2 16.4 L*, ABG pO2 157 H, Hector Test Positive, O2 Delivery Device NRB, Liter Flow 15.0 12/24/20 06:37: POC Glucose > 500 H* 12/24/20 06:45: Sodium 132 L, Potassium 4.8, Chloride 104, Carbon Dioxide 4.0 L* , Anion Gap 24 H, BUN 13, Creatinine 1.32 H, Estim Creat Clear Calc 90.15, Est GFR (MDRD) Af Amer 89, Est GFR (MDRD) Non-Af 74, BUN/Creatinine Ratio 9.8 L, Glucose 596 H*, Calcium 7.7 L Current Medications Insulin Human Lispro 100 unit/ (Sodium Chloride) 100 mls @ 7.14 mls/hr CONT INF .Q14H1M [facility]; Protocol Last Admin: 12/24/20 06:44 Dose: 7.14 units/hr, 7.1 mls/hr Documented by: Vancomycin HCl 1,750 mg/ (Sodium Chloride) 535 mls @ 250 mls/hr IV X1 ONE Stop: 12/24/20 07:53 Last Admin: 12/24/20 07:14 Dose: 250 mls/hr Documented by: STROKE Vital Signs/Narrative: Vital Signs Temp Pulse Resp BP Pulse Ox 12/24/20 07:14 95.1 F L 124 H 24 H 147/96 H 100 12/24/20 06:32 94.4 F L 125 H 32 H 134/90 H 100 12/24/20 05:53 95.2 F L 118 H 34 H 146/110 H 100 12/24/20 05:38 119 H 34 H 141/99 H 100 12/24/20 05:15 95.6 F L 122 H 30 H 141/99 H 96 Medical Necessity - Tobacco Use Smoking Status: Never smoker Assessment/Plan All Active Problems (Last Reviewed 10/27/20 @ 11:[address] 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 1. Acute Hypoxic Respiratory Failure, Multifactorial, secondary to Acute Severe Sepsis secondary to Acute left thigh infected wound and #2 Uncontrolled diabetes mellitus type I in the setting of DKA: ED work-up included evidence of hypothermia, tachycardia, tachypnea, CBC with WC 25 with platelet count 799 with left shift evident, VBG with pH 6.75 with PCO2 16 and PO2 157, CMP with sodium 132, bicarb 4 and creatinine 1.32, lactic acid 3.7, serum acetone large, chest x-ray with no acute cardiopulmonary findings, glucose 596, hemoglobin A1c greater than 14, urinalysis with specific gravity 1.020, glucose 1000, ketones 150 otherwise no obvious evidence of UTI, UDS unremarkable, in ED patient was aggressively hydrated, administered bicarb and broad-spectrum antibiotic therapy given concern for sepsis as presentation etiology and eventually intubated secondary to concerns for airway. Of note 12/10/2020 most recent surgical culture with MS-CoNS, klebs, enterobacter, MRSE, and anaerobes. Patient admitted to the ICU, maintained on propofol and fentanyl, intubated, continued on Zosyn therapy as well as vancomycin with pending MRSA screen, so administered dose clindamycin in the ED, patient evaluated 12/24/[address] Laura who recommended patient be evaluated by wound physician therefore Dr. Landin was consulted and patient was taken to the OR 12/24/2020 for infected left thigh wound which had significantly worsened with noted significant necrotic tissue, muscle and purulent material with wound OR culture and MRSA wound pending, blood culture x2, urine culture pending per ED, SARS rapid Covid antigen was negative. Once patient clinically appropriate for discharge would benefit from correction facility consideration for antibiotic therapy and wound care as home environment is significantly unsanitary with visiting wound nurses noting unsafe environment, visible insects including cockroaches. 2. DKA w/ Diabetes mellitus type I: Will continue on insulin drip, check serial K+, glucose w/ IVF changes pending these levels, serial chemistry, obtain mag, phos daily w/ repletion as needed, hemoglobin A1c obtained and greater than 14%, patient is a known noncompliant diabetic patient, once clinically appropriate will plan transition to home SC regimen when gap closed w/ overlap on drip, nutrition consultation. Once clinically appropriate were encourage diet and insulin regimen compliance. 3. Acute kidney injury: Secondary to acute presentation as noted #1, #2. Admission BUN/Cr 13/1.53, prior baseline creatinine noted to be 0.8-1.0 primarily. Patient aggressively hydrated especially given #1 presentation and #2, continue to trend CMP. 4. Acute encephalopathy, multifactorial: Secondary to #1, #2, #3, continue treatments as noted above, currently intubated, sedated. 5. GERD: Currently maintained on famotidine. 6. History of asthma: Noted history previously per patient, currently intubated, sedated, outpatient on scheduled Flovent and as needed albuterol, will continue as needed albuterol nebulizer treatments. 7. DVT prophylaxis: SCDs, Lovenox Procedures: [id number] Prolonged InPt Service; first hour - Patient with prolonged evaluation care above initial progress note evaluation of 70 minutes for the day by an additional 55 minutes arranging surgery evaluation and transition to OR given concern for left infected wound.
--- NOTE | 2020-12-24 07:50 | PCM.CONS.B ---
- Consult Date of Consult: 12/24/20 - Reason for Consult Chief Complaint: Left lower extremity leg wound I was asked to see patient by hospitalist service. The patient is a 20 year old WM presents to the hospital with DKA. He also has a chronic left leg wound. Patient denies TOB use, denies illicit drug use. He is a non compliant diabetic. Past Medical History Psychosocial problem (Chronic) Noncompliance with diabetes treatment (Chronic) Diabetes (Chronic) History of type 1 diabetes mellitus (Chronic) DKA, type 1 (Chronic) Asthma (Chronic) GERD (gastroesophageal reflux disease) (Chronic) Allergies No Known Allergies Allergy Medications: Albuterol Inhaler [Ventolin Hfa] 2 puff INHALATION Q4H PRN PRN Fluticasone 44 Mcg [Flovent 44 Mcg] 2 puff IH BID Ondansetron [Zofran Odt] 4 mg PO Q8H PRN PRN #10 tab Insulin Glargine [Lantus SoloStar 15 units SQ QHS Cephalexin [Keflex] 500 mg PO Q6 12/09/20 Insulin Lispro [Humalog Kwikpen] 10 unit SC TID Omeprazole [Prilosec] 20 mg PO DAILY PRN PRN Potassium Chloride [K-Dur] 20 meq PO BIDCM Smz/Tmp Ds [Bactrim Ds] 1 tab PO BID Past Surgical History: Hx of knee surgery -right Personal history: Smoking Status: Never smoker Tobacco Use: Non-smoker Alcohol: None Drugs: None - *Family History Asthma CVA (cerebral vascular accident) Diabetes Hypertension Thyroid disorder Review of Systems not obtained - patient is intubated Physical Examination Vital Signs Temp Pulse Resp BP Pulse Ox General: intubated HEENT: Atraumatic, PERRLA, EOMI, Normocephalic Oral: Dry Mucosa Neck: Supple, No JVD Lungs: Clear to auscultation, Normal air movement, No rhonchi, No wheeze, No rales Cardiovascular: Regular rate, Regular Rhythm, Normal S1, Normal S2, No murmurs Abdomen: Soft, Non Tender, Non-Distended, No Hepato-splenomegaly Extremities: No edema, Capillary Refill Less than 3 Seconds Skin: No rashes, No breakdown, Ulcer/ Wound - Left posterior thigh a 5 to 6cm purplish area with a 1 cm incision in the middle. No active drainage some surrounding redness with extensive induration Neurological: Neuro grossly intact, Sensory exam intact to light touch and pain Psych/Mental Status: Normal Affect, Appropriate Microbiology Past 72 Hours Impression: diabetic wound of left leg with poor systemic control of patient's diesase Discussion/Plan: The patient is a non compliant diabetic. I had seen patient in his last admission because the plastic surgeon was unavailable. I had referred patient to the Wound Healing clinic to have care for this wound. The patient's systemic disease has complicated this wound and I would recommend continued follow up by the Wound healing clinic and therefore it would be best for one of their physicians to follow with this patient.
[2020-12-24] MEDS: Propofol 10MG/Ml 1,000 MG/100 ML Bottle 4.3 MG CONT INF (08:00)
--- NOTE | 2020-12-24 08:18 | PCM.CON.CC ---
Reason for Consult Date of Consultation: 12/24/20 Reason for Consultation: Acute hypoxemic respiratory failure, diabetic ketoacidosis, severe sepsis History of Present Illness: The patient is a 20-year-old male, with a history as outlined below, who presented to the emergency department on December 24 with encephalopathy. The patient was just admitted to the hospital December 09 through December 13 with diabetic ketoacidosis and sepsis from a left thigh abscess. The patient did undergo surgical debridement during his previous hospitalization. The patient was discharged home on Levaquin. The patient does have a history of poorly controlled diabetes mellitus. On presentation to the emergency department, the patient was noted to have a temperature of 95.6 ?F and was notably tachycardic and tachypneic. Laboratory evaluation revealed an elevated white blood cell count to 25,000. Platelet count was elevated to 799,000. INR was within normal limits. Venous blood gas revealed a pH of 6.75 with a corresponding PCO2 of 16 and PO2 of 157. Chemistry profile was notable for a sodium of 132, bicarbonate of 4.0 and creatinine of 1.32. Lactate was elevated to 3.7. Large serum acetone level was noted. Chest x-ray revealed no acute cardiopulmonary process. The patient receives supplemental IV fluid hydration, sodium bicarbonate supplementation and was placed on antimicrobials. Over concerns for his altered mentation, tenuous respiratory status and ability to protect his airway, the patient was intubated in the emergency department. He was subsequently transferred to the medical intensive care unit for further management. Past Medical History Past Medical History (Chronic Problems): Chronic Problems (Last Reviewed 10/27/20 @ 11:[address] Will Mason MD) Psychosocial problem (Chronic) Noncompliance with diabetes treatment (Chronic) Diabetes (Chronic) History of type 1 diabetes mellitus (Chronic) DKA, type 1 (Chronic) Asthma (Chronic) GERD (gastroesophageal reflux disease) (Chronic) Medical History: Medical History (Last Reviewed 10/27/20 @ 11:[address] Will Mason MD) femur surgery Diabetes mellitus type 1 E10.9 Allergies No Known Allergies Allergy (Verified 12/24/20 05:39) Home Medications: Ambulatory Orders Medication Instructions Recorded Albuterol Inhaler [Ventolin Hfa] 2 puff INHALATION Q4H PRN PRN 02/15/19 Fluticasone 44 Mcg [Flovent 44 Mcg] 2 puff IH BID 11/12/19 Insulin Lispro [Humalog Kwikpen] See Protocol SC TID 12/09/20 Omeprazole [Prilosec] 20 mg PO DAILY 12/09/20 Potassium Chloride Oral Tablet 20 meq PO BIDCM 12/09/20 [K-Dur] Insulin Glargine [Lantus SoloStar 20 units SQ QHS 12/24/20 Pen] Surgical History: Surgical History (Last Reviewed 10/27/20 @ 11:[address] Will Mason MD) Hx of knee surgery Z98.890 Surgical History: noncontributory, - - Right knee surgery. Psychiatric History: No pertinent psych hx Lives: With Family Smoking Status: Never smoker Alcohol: None Drugs: None - *Family History Maternal Family History: Family History (Last Reviewed 10/27/20 @ 11:[address] Will Mason MD) Other Asthma CVA (cerebral vascular accident) Diabetes Hypertension Thyroid disorder History Items: - - Patient with no market maternal or paternal family history including heart disease, diabetes, cancer. Paternal Family History: Family History (Last Reviewed 10/27/20 @ 11:[address] Will Mason MD) Other Asthma CVA (cerebral vascular accident) Diabetes Hypertension Thyroid disorder History Items: - - Patient with no market maternal or paternal family history including heart disease, diabetes, cancer. Review of Systems Unable to obtain accurate/complete ROS d/t: Due to current intubation and mechanical ventilation status Patient Problems: Active and Suspected Problems (Last Reviewed 10/27/20 @ 11:[address] 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 Blood and urine cultures are pending. - Physical Exam Vitals/I&O's: Vital Signs Temp Pulse Resp BP Pulse Ox 95.1 F L 120 H 21 H 147/96 H 100 12/24/20 07:14 12/24/20 07:32 12/24/20 07:32 12/24/20 07:14 12/24/20 07:32 Oxygen Flow Rate (L/min) 15 Oxygen Delivery Method Mechanical Ventilator Weight: 157 lb 6.561 oz Body Mass Index (BMI) 20.7 Finger Stick Blood Glucose 586 Intake and Output for Last 24 Hours 12/22/20 12/23/20 12/24/20 23:59 23:59 23:59 Intake Total 2205 Output Total 1999 Balance / General: - - Currently intubated, sedated and mechanically ventilated. No ventilator to synchrony noted. HEENT: Atraumatic, PERRLA, Normocephalic Oral: Dry Mucosa, - - Endotracheal and OG tubes in place Neck: Supple, No Nodes, Trachea Midline Lungs: Normal air movement, No rhonchi, No wheeze, No rales Cardiovascular: Normal S1, Normal S2, No murmurs, Tachycardic Abdomen: Bowel Sounds Present, Soft, Non Tender Extremities: No clubbing, No cyanosis, No edema Skin: Ulcer/ Wound - Present on admission Musculoskeletal: No Tenderness to Palpation of Joints or Extremities Lymphatic: No Cervical, Supraclavicular, or Inguinal Adenopathy Neurological: - - No focal neurological deficits. Currently sedated on the ventilator. Labs (Last 48 Hours) 12/24/20 12/24/20 12/24/20 05:32 05:35 05:35 WBC 24.8 H RBC 5.56 Hgb 16.9 H Hct 50.4 MCV 90.6 MCH 30.4 MCHC 33.5 RDW Std Deviation 40.3 RDW Coeff of Rabia 12.2 Plt Count 799 H* MPV 9.4 Immature Gran % (Auto) 3.600 H Neut % (Auto) 76.5 H Lymph % (Auto) 11.2 L Randolph % (Auto) 7.2 Eos % (Auto) 0.5 Baso % (Auto) 1.0 Absolute Neuts (auto) 18.9 H Absolute Lymphs (auto) 2.77 Nucleated RBC % 0 Diff Path Review May foll Platelet Estimate MKD INC PT 15.5 H INR 1.3 APTT 30.6 Specimen Type Sample Site pH Bicarbonate Actual Total CO2 Base Excess O2 Saturation ABG pCO2 ABG pO2 Hector Test O2 Delivery Device Liter Flow Sodium Potassium Chloride Carbon Dioxide Anion Gap BUN Creatinine Estim Creat Clear Calc Est GFR (MDRD) Af Amer Est GFR (MDRD) Non-Af BUN/Creatinine Ratio Glucose Hemoglobin A1c Lactic Acid Calcium Magnesium Total Bilirubin AST ALT Alkaline Phosphatase Total Protein Albumin Globulin Albumin/Globulin Ratio Urine Color Urine Clarity Urine pH Ur Specific [place] Urine Protein Urine Glucose (UA) Urine Ketones Urine Occult Blood Urine Nitrite Urine Bilirubin Urine Urobilinogen Ur Leukocyte Esterase Urine RBC Urine WBC Ur Squamous Epith Cells Amorphous Sediment Urine Bacteria Coarse Granular Casts Urine Mucus Acetone Level POC Glucose > 500 H* 12/24/20 12/24/20 12/24/20 05:35 05:35 05:35 WBC RBC Hgb Hct MCV MCH MCHC RDW Std Deviation RDW Coeff of Rabia Plt Count MPV Immature Gran % (Auto) Neut % (Auto) Lymph % (Auto) Randolph % (Auto) Eos % (Auto) Baso % (Auto) Absolute Neuts (auto) Absolute Lymphs (auto) Nucleated RBC % Diff Path Review Platelet Estimate PT INR APTT Specimen Type Sample Site pH Bicarbonate Actual Total CO2 Base Excess O2 Saturation ABG pCO2 ABG pO2 Hector Test O2 Delivery Device Liter Flow Sodium 126 L Potassium 4.4 Chloride 96 L Carbon Dioxide 6.0 L* Anion Gap 24 H BUN 13 Creatinine 1.53 H Estim Creat Clear Calc 77.78 Est GFR (MDRD) Af Amer 75 Est GFR (MDRD) Non-Af 62 BUN/Creatinine Ratio 8.5 L Glucose 701 H* Hemoglobin A1c Lactic Acid 3.7 H* Calcium 8.8 Magnesium 2.6 Total Bilirubin 0.70 AST 14 L ALT 21 Alkaline Phosphatase 210 H Total Protein 9.4 H Albumin 4.6 Globulin 4.8 H Albumin/Globulin Ratio 1.0 Urine Color Urine Clarity Urine pH Ur Specific [place] Urine Protein Urine Glucose (UA) Urine Ketones Urine Occult Blood Urine Nitrite Urine Bilirubin Urine Urobilinogen Ur Leukocyte Esterase Urine RBC Urine WBC Ur Squamous Epith Cells Amorphous Sediment Urine Bacteria Coarse Granular Casts Urine Mucus Acetone Level LARGE H POC Glucose 12/24/20 12/24/20 12/24/20 05:35 05:45 05:53 WBC RBC Hgb Hct MCV MCH MCHC RDW Std Deviation RDW Coeff of Rabia Plt Count MPV Immature Gran % (Auto) Neut % (Auto) Lymph % (Auto) Randolph % (Auto) Eos % (Auto) Baso % (Auto) Absolute Neuts (auto) Absolute Lymphs (auto) Nucleated RBC % Diff Path Review Platelet Estimate PT INR APTT Specimen Type ART Sample Site R Fem pH 6.75 L* Bicarbonate Actual 2.3 L Total CO2 < 5 Base Excess < -30 L O2 Saturation 96 ABG pCO2 16.4 L* ABG pO2 157 H Hector Test Positive O2 Delivery Device NRB Liter Flow 15.0 Sodium Potassium Chloride Carbon Dioxide Anion Gap BUN Creatinine Estim Creat Clear Calc Est GFR (MDRD) Af Amer Est GFR (MDRD) Non-Af BUN/Creatinine Ratio Glucose Hemoglobin A1c Pending Lactic Acid Calcium Magnesium Total Bilirubin AST ALT Alkaline Phosphatase Total Protein Albumin Globulin Albumin/Globulin Ratio Urine Color Yellow Urine Clarity Clear Urine pH 5.0 Ur Specific [place] 1.020 Urine Protein 100 H Urine Glucose (UA) 1000 H Urine Ketones 150 H Urine Occult Blood 25 H Urine Nitrite Negative Urine Bilirubin Negative Urine Urobilinogen Normal Ur Leukocyte Esterase Negative Urine RBC 0 SEEN Urine WBC 0 SEEN Ur Squamous Epith Cells 0 SEEN Amorphous Sediment 3+ Urine Bacteria RARE Coarse Granular Casts 0-5 SEEN Urine Mucus 0 SEEN Acetone Level POC Glucose 12/24/20 12/24/20 12/24/20 06:37 06:45 08:10 WBC RBC Hgb Hct MCV MCH MCHC RDW Std Deviation RDW Coeff of Rabia Plt Count MPV Immature Gran % (Auto) Neut % (Auto) Lymph % (Auto) Randolph % (Auto) Eos % (Auto) Baso % (Auto) Absolute Neuts (auto) Absolute Lymphs (auto) Nucleated RBC % Diff Path Review Platelet Estimate PT INR APTT Specimen Type Sample Site pH Bicarbonate Actual Total CO2 Base Excess O2 Saturation ABG pCO2 ABG pO2 Hector Test O2 Delivery Device Liter Flow Sodium 132 L Potassium 4.8 Chloride 104 Carbon Dioxide 4.0 L* Anion Gap 24 H BUN 13 Creatinine 1.32 H Estim Creat Clear Calc 90.15 Est GFR (MDRD) Af Amer 89 Est GFR (MDRD) Non-Af 74 BUN/Creatinine Ratio 9.8 L Glucose 596 H* Hemoglobin A1c Lactic Acid Calcium 7.7 L Magnesium Pending Total Bilirubin AST ALT Alkaline Phosphatase Total Protein Albumin Globulin Albumin/Globulin Ratio Urine Color Urine Clarity Urine pH Ur Specific [place] Urine Protein Urine Glucose (UA) Urine Ketones Urine Occult Blood Urine Nitrite Urine Bilirubin Urine Urobilinogen Ur Leukocyte Esterase Urine RBC Urine WBC Ur Squamous Epith Cells Amorphous Sediment Urine Bacteria Coarse Granular Casts Urine Mucus Acetone Level POC Glucose > 500 H* 12/24/20 12/24/20 12/24/20 08:10 08:10 08:10 WBC RBC Hgb Hct MCV MCH MCHC RDW Std Deviation RDW Coeff of Rabia Plt Count MPV Immature Gran % (Auto) Neut % (Auto) Lymph % (Auto) Randolph % (Auto) Eos % (Auto) Baso % (Auto) Absolute Neuts (auto) Absolute Lymphs (auto) Nucleated RBC % Diff Path Review Platelet Estimate PT INR APTT Specimen Type Sample Site pH Bicarbonate Actual Total CO2 Base Excess O2 Saturation ABG pCO2 ABG pO2 Hector Test O2 Delivery Device Liter Flow Sodium Pending Potassium Pending Chloride Pending Carbon Dioxide Pending Anion Gap Pending BUN Pending Creatinine Pending Estim Creat Clear Calc Est GFR (MDRD) Af Amer Pending Est GFR (MDRD) Non-Af Pending BUN/Creatinine Ratio Pending Glucose Pending Hemoglobin A1c Lactic Acid Pending Calcium Pending Magnesium Total Bilirubin AST ALT Alkaline Phosphatase Total Protein Albumin Globulin Albumin/Globulin Ratio Urine Color Urine Clarity Urine pH Ur Specific [place] Urine Protein Urine Glucose (UA) Urine Ketones Urine Occult Blood Urine Nitrite Urine Bilirubin Urine Urobilinogen Ur Leukocyte Esterase Urine RBC Urine WBC Ur Squamous Epith Cells Amorphous Sediment Urine Bacteria Coarse Granular Casts Urine Mucus Acetone Level Pending POC Glucose Clinical Impression(s) from Imaging Studies Chest X-Ray 12/24/20 05:25 IMPRESSION: No acute cardiopulmonary abnormality. at 0615 Reported and signed by: Yael Garner MD Electronically Signed: Yael Garner MD at 6:15 EST Tel , Service support , Femur X-Ray 12/24/20 05:40 IMPRESSION: No acute osseous abnormality. Soft tissue defect in the posterior mid thigh. at 0621 Reported and signed by: Yael Garner MD Electronically Signed: Yael Garner MD at 6:20 EST Tel , Service support , Chest X-Ray 12/24/20 07:09 IMPRESSION: Endotracheal tube and gastric tube in place. at 0727 Reported and signed by: Yael Garner MD Electronically Signed: Yael Garner MD at 7:27 EST Tel , Service support , Current Medications Acetaminophen (Acetaminophen 325 Mg Tablet) 650 mg PO Q6H PRN PRN PRN Reason: Pain Score 1-3 /Temp>100.7 Al Hydroxide/Mg Hydroxide (Mag Hydrox/Al Hydrox/Simeth 30 Ml Udc) 30 ml PO Q6H PRN PRN PRN Reason: Gastric Burning Bisacodyl (Bisacodyl 5 Mg Tablet) 10 mg PO DAILY PRN PRN PRN Reason: Constipation Dextrose (Dextrose 50%-Water 25 Gm/50 Ml Disp.Syrin) 0 gm IV X1 PRN; Protocol PRN Reason: HYPOGLYCEMIA Docusate Sodium (Docusate Sodium 100 Mg Capsule) 200 mg PO BID PRN PRN PRN Reason: Constipation Enoxaparin Sodium (Enoxaparin 40 Mg/0.4 Ml Syringe) 40 mg SC DAILY [facility] Hydralazine HCl (Hydralazine 20 Mg/Ml Vial) 10 mg IV Q4H PRN PRN PRN Reason: SBP > 160 Insulin Human Lispro 100 unit/ (Sodium Chloride) 100 mls @ 7.14 mls/hr CONT INF .Q14H1M [facility]; Protocol Last Admin: 12/24/20 06:44 Dose: 7.14 units/hr, 7.1 mls/hr Documented by: Fentanyl Citrate 1,000 mcg/ (Sodium Chloride) 100 mls @ 5 mls/hr CONT INF .Q20H [facility]; Protocol Propofol (Diprivan) 1,000 mg in 100 mls @ 4.284 mls/hr CONT INF .Q12H [facility]; Protocol Sodium Chloride () 1,000 mls @ 999 mls/hr IV .Q1H1M ONE Stop: 12/24/20 08:49 Sodium Chloride () 1,000 mls @ 500 mls/hr IV .Q2H [facility] Stop: 12/24/20 09:48 Piperacillin Sod/Tazobactam (Sod 3.375 gm/ Sodium Chloride) 50 mls @ 12.5 mls/hr IV Q8 [facility] Vancomycin IV Pharmacy to Dose (1 ea/ Sodium Chloride) 500 mls @ 250 mls/hr IV X1 PRN; Protocol PRN Reason: Rx to Dose Ondansetron HCl (Ondansetron 4 Mg/2 Ml Vial) 4 mg IV Q8H PRN PRN PRN Reason: Nausea Polyethylene Glycol (Polyethylene Glycol 3350 17 Gm Packet) 17 gm PO DAILY [facility] Prochlorperazine Edisylate (Prochlorperazine 10 Mg/2 Ml Vial) 10 mg IV Q6H PRN PRN PRN Reason: Nausea/Vomiting Assessment/Plan Active and Suspected Problems (Last Reviewed 10/27/20 @ 11:[address] 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 Continue patient on assist control mode of mechanical ventilation and wean FiO2 to maintain saturations at or above 90%. 2. Check arterial blood gas in 1 hour. 3. Continue supplemental IV fluids and continuous insulin infusion per DKA protocol. 4. Continue empiric antimicrobials. 5. Await plastic surgery/wound care evaluation. IMPRESSIONS: 1. Acute respiratory failure The patient was initially intubated in the emergency department due to encephalopathy and increased work of breathing, which was likely secondary to an attempt to compensate from his significant metabolic derangements. The patient's ventilator requirements are minimal. We will continue to wean FiO2 to maintain oxygen saturations at or above 90%. 2. Diabetic ketoacidosis Likely secondary to noncompliance and complicated by diabetic wound. The patient will be given 2 additional boluses of lactated Ringer's solution and continued on fluids and insulin per DKA protocol. Continue to monitor blood sugars and electrolytes closely. 3. Severe sepsis Again, concern for diabetic wound as possible infectious etiology. The patient is currently on appropriate antimicrobials. Supplemental IV fluids are being administered. Awaiting evaluation by plastic surgery/wound care. 4. Acute kidney injury/anion gap metabolic acidosis Likely prerenal in etiology. Continue fluid replacement as ordered. Anticipate slow improvement with volume expansion. Continue to monitor urine output. No current indication for renal replacement therapy. 5. Encephalopathy Likely metabolic in etiology. Anticipate improvement with correction of metabolic derangements. Continue current sedation regimen with a goal to maintain a RASS of -1 to 1. 6. Personal history of asthma/GERD Complicates care, management, recovery and prognosis. Continue home medications as indicated. TIME: 38 minutes of critical care time, independent of procedures, was spent addressing the patient's acute respiratory failure, diabetic ketoacidosis, severe sepsis, acute kidney injury, encephalopathy, review of all data and collaboration with the care team. [id number]) [phone] Critical care first hour
[2020-12-24 08:30] LABS: Bedside Glucose 466 mg/dL (70-110)
[2020-12-24] MEDS: Lactated Ringers 1,000 ML 999 ML IV ×2 (08:30→09:30)
[2020-12-24 08:33] LABS: Magnesium 2.1 mg/dL (1.6-2.6)
[2020-12-24 08:40] LABS: Anion Gap 22 (5-15); BUN 13 mg/dL (7-18); BUN/Creat Ratio 9.7 RATIO (10-20); Calcium,Total 7.7 mg/dL (8.5-10.1); Chloride 108 mmol/L (98-107); Creatinine, Serum 1.34 mg/dL (0.70-1.30); EST Glomerular Filtration Rate 72 mL/min (>60); Est Glom Filt Rate - Afr Amer 87 mL/min (>60); Estimated Creatinine Clearance 88.81 ml/min; Glucose 482 mg/dL (74-106); Potassium 4.2 mmol/L (3.5-5.1); Sodium Level 136 mmol/L (136-145)
[2020-12-24 08:50] LABS: Lactic Acid 2.9 mmol/L (0.4-1.9)
--- NOTE | 2020-12-24 08:50 | PCM.RX.CS ---
Consult Pharmacy has been consulted to manage selected antiobiotic: Vancomycin Type of Consult: New start Suspected Infection: Sepsis Prior Doses of Antibiotics Received/Current Regimen: Received 1750mg iv x 1. Labs: Sodium 136 mmol/L (136-145) 12/24/20 08:10 Potassium 4.2 mmol/L (3.5-5.1) 12/24/20 08:10 Chloride 108 mmol/L (98-107) H 12/24/20 08:10 Carbon Dioxide 6.0 mmol/L (21.0-32.0) L* 12/24/20 08:10 Anion Gap 22 (5-15) H 12/24/20 08:10 BUN 13 mg/dL (7-18) 12/24/20 08:10 Creatinine 1.34 mg/dL (0.70-1.30) H 12/24/20 08:10 Est GFR (MDRD) Af Amer 87 mL/min (>60) 12/24/20 08:10 Est GFR (MDRD) Non-Af 72 mL/min (>60) 12/24/20 08:10 BUN/Creatinine Ratio 9.7 RATIO (10-20) L 12/24/20 08:10 Glucose 482 mg/dL (74-106) H* 12/24/20 08:10 Weight used for dosin.4 kg Estimated Creatinine Clearance: 90 ml/min Goal Trough: 15-20 mcg/mL Pharmacy Plan for Drug Dosing: Will begin 1500mg iv q12h per protocol. Trough level ordered for 2..21 before 4th dose of therapy. Pharmacy Service will continue to monitor and adjust dosing as required. Follow-Up Labs: Trough Vancomycin - 2.13.21 @1830 before 1900 dose
[2020-12-24 08:58] LABS: Amphetamine Urine VISTA NEGATIVE (<1000 ng/mL); Barbiturate Urine VISTA NEGATIVE (< 200 ng/mL); Benzodiazepine Urine VISTA NEGATIVE (< 200 ng/mL); Cocaine Urine VISTA NEGATIVE (< 300 ng/mL); Ecstacy Urine VISTA NEGATIVE (< 500 ng/mL); Methadone Urine VISTA NEGATIVE (< 300 ng/mL); PCP Urine VISTA NEGATIVE (< 25 ng/mL); THC Urine VISTA NEGATIVE (< 50 ng/mL); Vista UDS pH Range 5
[2020-12-24 09:15] LABS: Base Excess -26 mmol/L (-2 to +2); Bicarbonate 4.9 mmol/L (22-26); Blood Gas Specimen Type ART; FI02 21; Mode AC; PEEP 5; PO2 117 mmHG (75-100); RR 12; SITE R Radial; SO2 96 % (95-99); Total Carbon Dioxide 6 mmol/L; Vt 450; pCO2 19.4 mmHg (35-45); pH 7.01 (7.35-7.45)
[2020-12-24 09:17] LABS: Hemoglobin A1c > 14.0 % (3.8-5.6)
[2020-12-24 09:30] LABS: Bedside Glucose 368 mg/dL (70-110)
[2020-12-24 09:38] LABS: Pathologist Review Reviewed
[2020-12-24 09:40] LABS: Reflex Lactate? Y
[2020-12-24] MEDS: 0.9% Saline Lock 10 ML Syringe IV ×4 (10:10→18:59)
[2020-12-24 10:11] LABS: Bedside Glucose 332 mg/dL (70-110)
--- NOTE | 2020-12-24 10:30 | NURSING ---
Attempted to call grandmother to update on pt condition. No answer. Will attempt again later.
--- NOTE | 2020-12-24 10:32 | CPS ---
Critical values noted, given to Dr. Momin by SENIOR TECHNICAL ARCHITECT Marc @9:15A.M.
[2020-12-24] MEDS: Lactated Ringers 1,000 ML 250 ML IV (10:35)
--- NOTE | 2020-12-24 10:50 | NURSING ---
Marco Antonio updated on pt condition. States that pt's wound vac was taken off yesterday when he went to the wound center but she did not send the supplied for them to put it back on so it just had a dressing and home health was supposed to come place wound vac today.
[2020-12-24] MEDS: Enoxaparin 40 MG/0.4 ML Syringe SC (11:20)
[2020-12-24 11:26] LABS: Anion Gap 15 (5-15); BUN 12 mg/dL (7-18); Calcium,Total 7.9 mg/dL (8.5-10.1); Chloride 114 mmol/L (98-107); Creatinine, Serum 1.09 mg/dL (0.70-1.30); EST Glomerular Filtration Rate 92 mL/min (>60); Est Glom Filt Rate - Afr Amer 111 mL/min (>60); Estimated Creatinine Clearance 104.89 ml/min; Glucose 274 mg/dL (74-106); Potassium 3.7 mmol/L (3.5-5.1); Sodium Level 141 mmol/L (136-145)
[2020-12-24 11:26] LABS: Bedside Glucose 250 mg/dL (70-110)
--- NOTE | 2020-12-24 11:26 | NURSING ---
wound photo: left posterior thigh
[2020-12-24 12:18] LABS: Reflex Lactate? Y
[2020-12-24 12:25] LABS: Bedside Glucose 230 mg/dL (70-110)
--- NOTE | 2020-12-24 12:38 | CON.PCM_ITS ---
Reason for Consult Date of Consultation: 12/24/20 Reason for Consultation: Infected necrotic diabetic ulcer with abscess left posterior thigh. REFERRING PHYSICIAN: Dr. Kapoor. SOLVENT PLANT OPERATOR: Dr. Landin. History of Present Illness: The patient is a 20 year old M with a history of Type 1 diabetes mellitus presents with recurrent DKA. He is currently intubated in the ICU. His WBC was 24.8. His HgbA1c was >14. His initial Glucose was 701. At present it is down to 274. Lactate was 3.7. He was admitted a couple of weeks ago for the same DKA. His Glucose at that time was 1000. His HgbA1c at that time was >16. He underwent a debridement of a necrotic ulcer left posterior thigh on 12/10/20. He was discharged on the VAC. In the ED today, he was confused and didn't know where his VAC was. He was septic with severe metabolic acidosis which prompted the intubation and admission to the ICU. He was started on Vancomycin and Zosyn. His left posterior thigh ulcer has worsened since his discharge. I was asked to evaluate this patient for surgical options for treatment. Past Medical History Past Medical History (Chronic Problems): Chronic Problems (Last Reviewed 10/27/20 @ 11:[address] Will Mason MD) Psychosocial problem (Chronic) Noncompliance with diabetes treatment (Chronic) Diabetes (Chronic) History of type 1 diabetes mellitus (Chronic) DKA, type 1 (Chronic) Asthma (Chronic) GERD (gastroesophageal reflux disease) (Chronic) Medical History: Medical History (Last Reviewed 10/27/20 @ 11:[address] Will Mason MD) femur surgery Diabetes mellitus type 1 E10.9 Allergies No Known Allergies Allergy (Verified 12/24/20 05:39) Home Medications: Ambulatory Orders Medication Instructions Recorded Albuterol Inhaler [Ventolin Hfa] 2 puff INHALATION Q4H PRN PRN 02/15/19 Fluticasone 44 Mcg [Flovent 44 Mcg] 2 puff IH BID 11/12/19 Insulin Lispro [Humalog Kwikpen] See Protocol SC TID 12/09/20 Omeprazole [Prilosec] 20 mg PO DAILY 12/09/20 Potassium Chloride Oral Tablet 20 meq PO BIDCM 12/09/20 [K-Dur] Insulin Glargine [Lantus SoloStar 20 units SQ QHS 12/24/20 Pen] Surgical History: Surgical History (Last Reviewed 10/27/20 @ 11:[address] Will Mason MD) Hx of knee surgery Z98.890 Surgical History: noncontributory, - - Right knee surgery. Psychiatric History: No pertinent psych hx Lives: With Family Smoking Status: Never smoker Alcohol: None Drugs: None - *Family History Maternal Family History: Family History (Last Reviewed 10/27/20 @ 11:[address] Will Mason MD) Other Asthma CVA (cerebral vascular accident) Diabetes Hypertension Thyroid disorder History Items: - - Patient with no market maternal or paternal family history including heart disease, diabetes, cancer. Paternal Family History: Family History (Last Reviewed 10/27/20 @ 11:[address] Will Mason MD) Other Asthma CVA (cerebral vascular accident) Diabetes Hypertension Thyroid disorder History Items: - - Patient with no market maternal or paternal family history including heart disease, diabetes, cancer. Review of Systems Unable to obtain accurate/complete ROS d/t: Patient is intubated. Patient Problems: Active and Suspected Problems (Last Reviewed 10/27/20 @ 11:[address] 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 HEENT: PERRLA, EOMI. Oral: Dry Mucosa. Neck: Supple, No cervical adenopathy. Lungs: Clear to auscultation, Patient is intubated. Cardiovascular: Tachycardic. Abdomen: Soft, Non-Distended. Extremities: No clubbing, No cyanosis, No edema. On the left posterior thigh is a necrotic diabetic ulcer. Purulent drainage noted. Some bubbles noted in the drainage. Extends down to the muscle. Measures 6 x 12 cm. Lymphatic: No Cervical, Supraclavicular, or Inguinal Adenopathy Neurological: Unable to assess. Patient is intubated. Psych/Mental Status: - - Patient is intubated. Vital Signs Temp Pulse Resp BP Pulse Ox 98.6 F 130 H 14 112/69 100 12/24/20 10:00 12/24/20 11:04 12/24/20 11:04 12/24/20 10:00 12/24/20 11:04 Oxygen Flow Rate (L/min) 15 Oxygen Delivery Method Mechanical Ventilator Weight: 151 lb 3.794 oz Body Mass Index (BMI) 19.9 Finger Stick Blood Glucose 250 Intake and Output for Last 24 Hours 12/22/20 12/23/20 12/24/20 23:59 23:59 23:59 Intake Total 4797.78 / 4797.78 Output Total 3550 / 3550 Balance 1247.78 / 1247.78 Laboratory Results 12/24/20 05:32: POC Glucose > 500 H* 12/24/20 05:35: WBC 24.8 H, RBC 5.56, Hgb 16.9 H, Hct 50.4, MCV 90.6, MCH 30.4, MCHC 33.5, RDW Std Deviation 40.3, RDW Coeff of Rabia 12.2, Plt Count 799 H*, MPV 9.4, Immature Gran % (Auto) 3.600 H, Neut % (Auto) 76.5 H, Lymph % (Auto) 11.2 L , [place] % (Auto) 7.2, Eos % (Auto) 0.5, Baso % (Auto) 1.0, Absolute Neuts (auto) 18.9 H, Absolute Lymphs (auto) 2.77, Nucleated RBC % 0, Diff Path Review Reviewed, Platelet Estimate MKD INC 12/24/20 05:35: PT 15.5 H, INR 1.3, APTT 30.6 12/24/20 05:35: Sodium 126 L, Potassium 4.4, Chloride 96 L, Carbon Dioxide 6.0 L*, Anion Gap 24 H, BUN 13, Creatinine 1.53 H, Estim Creat Clear Calc 77.78, Est GFR (MDRD) Af Amer 75, Est GFR (MDRD) Non-Af 62, BUN/Creatinine Ratio 8.5 L, Glucose 701 H*, Calcium 8.8, Magnesium 2.6, Total Bilirubin 0.70, AST 14 L, ALT 21, Alkaline Phosphatase 210 H, Total Protein 9.4 H, Albumin 4.6, Globulin 4.8 H , Albumin/Globulin Ratio 1.0 12/24/20 05:35: Lactic Acid 3.7 H* 12/24/20 05:35: Acetone Level LARGE H 12/24/20 05:35: Hemoglobin A1c > 14.0 H 12/24/20 05:45: Urine Color Yellow, Urine Clarity Clear, Urine pH 5.0, Ur Specific [place] 1.020, Urine Protein 100 H, Urine Glucose (UA) 1000 H, Urine Ketones 150 H, Urine Occult Blood 25 H, Urine Nitrite Negative, Urine Bilirubin Negative, Urine Urobilinogen Normal, Ur Leukocyte Esterase Negative, Urine RBC 0 SEEN, Urine WBC 0 SEEN, Ur Squamous Epith Cells 0 SEEN, Amorphous Sediment 3+, Urine Bacteria RARE, Coarse Granular Casts 0-5 SEEN, Urine Mucus 0 SEEN 12/24/20 05:53: Specimen Type ART, Sample Site R Fem, pH 6.75 L*, Bicarbonate Actual 2.3 L, Total CO2 < 5, Base Excess < -30 L, O2 Saturation 96, ABG pCO2 16.4 L*, ABG pO2 157 H, Hector Test Positive, O2 Delivery Device NRB, Liter Flow 15.0 12/24/20 06:37: POC Glucose > 500 H* 12/24/20 06:45: Sodium 132 L, Potassium 4.8, Chloride 104, Carbon Dioxide 4.0 L* , Anion Gap 24 H, BUN 13, Creatinine 1.32 H, Estim Creat Clear Calc 90.15, Est GFR (MDRD) Af Amer 89, Est GFR (MDRD) Non-Af 74, BUN/Creatinine Ratio 9.8 L, Glucose 596 H*, Calcium 7.7 L 12/24/20 08:10: Magnesium 2.1 12/24/20 08:10: Acetone Level LARGE H 12/24/20 08:10: Lactic Acid 2.9 H* 12/24/20 08:10: Sodium 136, Potassium 4.2, Chloride 108 H, Carbon Dioxide 6.0 L* , Anion Gap 22 H, BUN 13, Creatinine 1.34 H, Estim Creat Clear Calc 88.81, Est GFR (MDRD) Af Amer 87, Est GFR (MDRD) Non-Af 72, BUN/Creatinine Ratio 9.7 L, Glucose 482 H*, Calcium 7.7 L 12/24/20 08:12: POC Glucose 466 H* 12/24/20 08:40: Urine Opiates Screen NEGATIVE, Urine Methadone Screen NEGATIVE, Ur Barbiturates Screen NEGATIVE, Ur Phencyclidine Scrn NEGATIVE, Ur Amphetamines Screen NEGATIVE, U Methamphetamin-MDMA NEGATIVE, U Benzodiazepines Scrn NEGATIVE, Urine Cocaine Screen NEGATIVE, U Cannabinoids Screen NEGATIVE, Ur Drug Screen Comment 12/24/20 08:57: POC Glucose 368 H 12/24/20 09:09: Specimen Type ART, Sample Site R Radial, pH 7.01 L*, Bicarbonate Actual 4.9 L, Total CO2 6, Base Excess -26 L, O2 Saturation 96, O2 % 21, ABG pCO2 19.4 L, ABG pO2 117 H, Respiration Rate 12, Vent Mode AC, Tidal Volume 450, POC PEEP 5 12/24/20 09:53: POC Glucose 332 H 12/24/20 11:00: Sodium 141, Potassium 3.7, Chloride 114 H, Carbon Dioxide 12.0 L , Anion Gap 15, BUN 12, Creatinine 1.09, Estim Creat Clear Calc 104.89, Est GFR (MDRD) Af Amer 111, Est GFR (MDRD) Non-Af 92, BUN/Creatinine Ratio 11.0, Glucose 274 H, Calcium 7.9 L 12/24/20 11:02: POC Glucose 250 H 12/24/20 11:15: S.aureus Protein A PCR Pending, MRSA (PCR) Pending 12/24/20 12:20: POC Glucose 230 H Current Medications Acetaminophen (Acetaminophen 325 Mg Tablet) 650 mg PO Q6H PRN PRN PRN Reason: Pain Score 1-3 /Temp>100.7 Al Hydroxide/Mg Hydroxide (Mag Hydrox/Al Hydrox/Simeth 30 Ml Udc) 30 ml PO Q6H PRN PRN PRN Reason: Gastric Burning Bisacodyl (Bisacodyl 5 Mg Tablet) 10 mg PO DAILY PRN PRN PRN Reason: Constipation Chlorhexidine Gluconate (Chlorhexidine Gluc 2% Cloth 1 Each Towelette) 1 each TOPICAL DAILY [facility] Chlorhexidine Gluconate (Chlorhexidine 15 Ml) 15 ml PO BID [facility] Dextrose (Dextrose 50%-Water 25 Gm/50 Ml Disp.Syrin) 0 gm IV X1 PRN; Protocol PRN Reason: HYPOGLYCEMIA Docusate Sodium (Docusate Sodium 100 Mg Capsule) 200 mg PO BID PRN PRN PRN Reason: Constipation Enoxaparin Sodium (Enoxaparin 40 Mg/0.4 Ml Syringe) 40 mg SC DAILY [facility] Last Admin: 12/24/20 11:20 Dose: 40 mg Documented by: Famotidine (Famotidine 20 Mg Tablet) 20 mg GT BID [facility] Hydralazine HCl (Hydralazine 20 Mg/Ml Vial) 10 mg IV Q4H PRN PRN PRN Reason: SBP > 160 Insulin Human Lispro 100 unit/ (Sodium Chloride) 100 mls @ 7.14 mls/hr CONT INF .Q14H1M [facility]; Protocol Last Titration: 12/24/20 12:21 Dose: 1 units/hr, 1 mls/hr Documented by: Fentanyl Citrate 1,000 mcg/ (Sodium Chloride) 100 mls @ 5 mls/hr CONT INF .Q20H [facility]; Protocol Last Titration: 12/24/20 10:00 Dose: 100 mcg/hr, 10 mls/hr Documented by: Propofol (Diprivan) 1,000 mg in 100 mls @ 4.116 mls/hr CONT INF .Q12H [facility]; Protocol Last Titration: 12/24/20 10:00 Dose: 25 mcg/kg/min, 10.7 mls/hr Documented by: Piperacillin Sod/Tazobactam (Sod 3.375 gm/ Sodium Chloride) 50 mls @ 12.5 mls/hr IV Q8 [facility] Vancomycin IV Pharmacy to Dose (1 ea/ Sodium Chloride) 500 mls @ 250 mls/hr IV PRN PRN; Protocol PRN Reason: Rx to Dose Vancomycin HCl 1,500 mg/ (Sodium Chloride) 530 mls @ 250 mls/hr IV Q12H [facility] Lactated Ringer's () 1,000 mls @ 250 mls/hr IV .Q4H [facility] Last Admin: 12/24/20 10:35 Dose: 250 mls/hr Documented by: Sodium Chloride () 250 mls @ 15 mls/hr IV .[id number] PRN PRN Reason: Saline Flush Sodium Chloride () 250 mls @ 15 mls/hr IV .[id number] PRN PRN Reason: Additional IVPB Infusion Ondansetron HCl (Ondansetron 4 Mg/2 Ml Vial) 4 mg IV Q8H PRN PRN PRN Reason: Nausea Polyethylene Glycol (Polyethylene Glycol 3350 17 Gm Packet) 17 gm PO DAILY [facility] Last Admin: 12/24/20 11:20 Dose: Not Given Documented by: Prochlorperazine Edisylate (Prochlorperazine 10 Mg/2 Ml Vial) 10 mg IV Q6H PRN PRN PRN Reason: Nausea/Vomiting Sodium Chloride (0.9% Saline Lock 10 Ml Syringe) 10 - 40 ml IV UD PRN PRN Reason: SALINE FLUSH Last Admin: 12/24/20 11:21 Dose: 10 ml Documented by: Assessment/Plan All Active Problems (Last Reviewed 10/27/20 @ 11:[address] 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 Nonhealing infected necrotic diabetic ulcer with abscess left posterior thigh. 2. Diabetic ketoacidosis associated with Type I Diabetes mellitus. 3. Sepsis. 4. Type I Diabetes mellitus, uncontrolled. 5. HgbA1c >9. Continue Vancomycin and Zosyn. Some of his diabetes issues are due to his noncompliance. However, worsening of the infected necrotic diabetic ulcer with abscess can certainly make his medical situation worse. He needs urgent operative intervention today to remove the infected necrotic ti ssue. There was some bubbles at the edge of the ulcer when palpated that is concerning for a necrotizing process. There is muscle involved at the base of the ulcer. His DKA will be much harder to treat if the infected necrotic diabetic ulcer with abscess is not treated today. He is currently intubated. Will talk to family regarding the consent form. He needs surgical preparation left posterior thigh with incision and drainage and excisional debridement nonhealing infected diabetic ulcer with abscess and which involves underlying muscle. The resultant size of the wound will be determined by the presence of necrotic muscle and if it extends proximally toward the pelvis. If a necrotizing process is present and not surgically treated urgently, he is at risk for worsening infection, amputation, and . After surgery, can proceed with the wound care with the VAC. After discharge, can followup at the [facility]ound Center. If there is a plateau in the healing process, can proceed with delayed closure with skin grafting. However, before a skin graft can be done, the HgbA1c has to be less than 8. At present it is >14. Anticipate increased metabolic demands from the infection and from the ulcer. Will check a Prealbumin and encourage nutritional supplementation with protein after he is extubated. Inpatient E&M: 90149 Init Hosp L3 - -57 Modifier ICD-10 - L97.123, I96, L02.416, E10.10, A41.9, E10.65, R73.09
[2020-12-24 13:11] LABS: Bedside Glucose 205 mg/dL (70-110)
--- NOTE | 2020-12-24 13:45 | UL_PTH ---
PATIENT: SHIRA STEPHENSON LOC: [facility] U#:[id number] AGE/SX: 20/M ROOM: [facility] RE12/24/[address]: Dr. Mendy Stanley MD : 2000 BED: 1 DIS: 12/28/2020 SPEC #: [id number] RECD: 12/24/20 15:35 STATUS: KENIA REKelvin #: [id number] HONG: 12/24/20 13:[address]: Raymundo Landin DEPT: SURGICAL PATHOLOGY RECD BY: Shannon Bowers ENTERED: 12/27/20 07:51 SP TYPE: ULCER OTHR DR: DO Dr. Mendy Baltazar MD Dr. James A Slaby, MD Dr. Louise Miller, MD Dr. Nana Yaa Koram, MD Dr. Robert Leininger, MD Tissues: ULCER Procedures: Special Stain Group I Surgery Specimen Level IV GMS Stain (control) Comments: @ Ordering doctor for SUIII edited from to @ by CLOVER at 12/27/20 1022 @ Submitting doctor edited from to @ by DAGOBERTOOD at 12/27/20 1022 HEADER OPERATION: I & D infected necrotic diabetic ulcer, thigh PRE-OP DIAGNOSIS: Abscess left thigh TISSUE SUBMITTED: Left posterior thigh infected necrotic diabetic ulcer MICROSCOPIC DIAGNOSIS Skin and soft tissue of left posterior thigh, excision: Ulceration with associated acute and chronic inflammation. Abundant fungal hyphae present. See comment. RUBINA:yefri 12/28/2020 COMMENT GMS stain with matched control was used in the evaluation of this case. MICROSCOPIC DESCRIPTION Slides are reviewed. GROSS DESCRIPTION Received in fixative is one container labeled with the patient's name and designated posterior thigh tissue. The specimen consists of three irregular fragments of light maldonado skin with attached yellow fibrofatty tissue ranging in size from 4.5 to 11 cm. The largest fragment consists of a cutaneous ulcer measuring 8.5 x 5 x 1 cm. Serial sections do not reveal mass lesions. Icebox Worker sections are submitted in three cassettes. / AM:yefri 12/27/20 TC:2 CPT: 76432, [id number]
[2020-12-24 13:47] LABS: CPK Total, Creatine Kinase 95 U/L (39-308); Triglycerides 492 mg/dL
--- NOTE | 2020-12-24 13:47 | CASEMGMT ---
Addendum entered by Tessy Smalls 12/24/20 14:10: Grandmother did inform SW that pt has a scheduled appointment with Dr. Galindo, Trailer Tank Truck Driver, on Sunday12/27/20 and she cancelled this appointment due to hospitalization. Grandmother concerned that pt is on 10 unit of insulin 3 times a day and pt blood sugars are still over 400. SW inquired about pt checking and managing his BS and grandmother states the last time pt checked his BS was 12/15/20. BRENT Frank Original Note: Social Work Social Work received phone call from pt grandmother Ines Brandt who states pt was receiving services from home health but they are not going to continue with services. Ines inquiring if pt could be seen at the wound center only and not have home health services. VERNON explained surgery was planned for today and that SW or CM would follow up on Sunday for discharge planning needs. Ines is agreeable. Phone call placed to [facility] to determine services and spoke with Delilah. Delilah confirms that they discontinued services since pt was admitted and that they will not be accepting pt back. Delilah expresses concerns about extreme home hygiene issues including bug infestation, hoarding with limited walking paths, trash, jugs of urine throughout house, holes in the floor of mobile home, no heat other than wood burner and questionable running water. Currently living in the home are patient, patient grandmother, grandfather, mother and 12 year old brother. Delilah states she made a report to both Adult Protective Services and Child Protective Services on 12/21/20. Pt is currently intubated and surgery is scheduled for this afternoon. D/C planning deferred at this time. VERNON to follow for safe discharge planning. BRENT Frank
--- NOTE | 2020-12-24 13:57 | CON.PCM_ITS ---
Problem List (1) Abscess of left thigh Status: Acute Reason for Consult: infected leg wound Consulted by: Dr. Kapoor History of Present Illness: The patient is a 20 year old M with uncontrolled T1DM, recent admit with DKA, taken to OR 12/10/[address] Laura for I&D of L thigh abscess. Discharged on levaquin and wound vac. Home health no longer will go to his house due to poor living conditions. Came back with DKA, worsening L thigh infection. Now on vent, insulin gtt, vanc/zosyn. Also given clinda in ED. OR planned again for I&D. ROS unobtainable due to sedation. - Medical History Past Medical History (Chronic Problems): Chronic Problems (Last Reviewed 10/27/20 @ 11:[address] Will Mason MD) Psychosocial problem (Chronic) Noncompliance with diabetes treatment (Chronic) Diabetes (Chronic) History of type 1 diabetes mellitus (Chronic) DKA, type 1 (Chronic) Asthma (Chronic) GERD (gastroesophageal reflux disease) (Chronic) Allergies/Adverse Reactions: Allergies No Known Allergies Allergy (Verified 12/24/20 05:39) Home Medications: Ambulatory Orders Medication Instructions Recorded Albuterol Inhaler [Ventolin Hfa] 2 puff INHALATION Q4H PRN PRN 02/15/19 Fluticasone 44 Mcg [Flovent 44 Mcg] 2 puff IH BID 11/12/19 Insulin Lispro [Humalog Kwikpen] See Protocol SC TID 12/09/20 Omeprazole [Prilosec] 20 mg PO DAILY 12/09/20 Potassium Chloride Oral Tablet 20 meq PO BIDCM 12/09/20 [K-Dur] Insulin Glargine [Lantus SoloStar 20 units SQ QHS 12/24/20 Pen] - Social History Tobacco Use: non-smoker Vital Signs Temp Pulse Resp BP Pulse Ox 101.1 F H 135 H 12 101/53 L 98 12/24/20 13:00 12/24/20 13:00 12/24/20 13:00 12/24/20 13:00 12/24/20 13:00 Oxygen Flow Rate (L/min) 15 Oxygen Delivery Method Mechanical Ventilator Weight: 68.6 kg Body Mass Index (BMI) 20.0 Finger Stick Blood Glucose 205 Microbiology Past 72 Hours 12/24/20 12:45 SARS-CoV-2 Antigen (Rapid) - Final Mucosa - Nasopharyngeal Laboratory Tests Past 24 Hrs 12/24/20 12/24/20 12/24/20 05:35 05:35 05:35 WBC 24.8 H RBC 5.56 Hgb 16.9 H Hct 50.4 MCV 90.6 MCH 30.4 MCHC 33.5 RDW Std Deviation 40.3 RDW Coeff of Rabia 12.2 Plt Count 799 H* MPV 9.4 Immature Gran % (Auto) 3.600 H Neut % (Auto) 76.5 H Lymph % (Auto) 11.2 L [place] % (Auto) 7.2 Eos % (Auto) 0.5 Baso % (Auto) 1.0 Absolute Neuts (auto) 18.9 H Absolute Lymphs (auto) 2.77 Nucleated RBC % 0 Diff Path Review Reviewed Platelet Estimate MKD INC PT 15.5 H INR 1.3 APTT 30.6 Specimen Type Sample Site pH Bicarbonate Actual Total CO2 Base Excess O2 Saturation O2 % ABG pCO2 ABG pO2 Hector Test Respiration Rate O2 Delivery Device Liter Flow Vent Mode Tidal Volume POC PEEP Sodium 126 L Potassium 4.4 Chloride 96 L Carbon Dioxide 6.0 L* Anion Gap 24 H BUN 13 Creatinine 1.53 H Estim Creat Clear Calc 77.78 Est GFR (MDRD) Af Amer 75 Est GFR (MDRD) Non-Af 62 BUN/Creatinine Ratio 8.5 L Glucose 701 H* Hemoglobin A1c Lactic Acid Calcium 8.8 Magnesium 2.6 Total Bilirubin 0.70 AST 14 L ALT 21 Alkaline Phosphatase 210 H Total Creatine Kinase Total Protein 9.4 H Albumin 4.6 Globulin 4.8 H Albumin/Globulin Ratio 1.0 Triglycerides Urine Color Urine Clarity Urine pH Ur Specific [place] Urine Protein Urine Glucose (UA) Urine Ketones Urine Occult Blood Urine Nitrite Urine Bilirubin Urine Urobilinogen Ur Leukocyte Esterase Urine RBC Urine WBC Ur Squamous Epith Cells Amorphous Sediment Urine Bacteria Coarse Granular Casts Urine Mucus Urine Opiates Screen Urine Methadone Screen Ur Barbiturates Screen Ur Phencyclidine Scrn Ur Amphetamines Screen U Methamphetamin-MDMA U Benzodiazepines Scrn Urine Cocaine Screen U Cannabinoids Screen Ur Drug Screen Comment Acetone Level S.aureus Protein A PCR MRSA (PCR) 12/24/20 12/24/20 12/24/20 05:35 05:35 05:35 WBC RBC Hgb Hct MCV MCH MCHC RDW Std Deviation RDW Coeff of Rabia Plt Count MPV Immature Gran % (Auto) Neut % (Auto) Lymph % (Auto) Louis[place] % (Auto) Eos % (Auto) Baso % (Auto) Absolute Neuts (auto) Absolute Lymphs (auto) Nucleated RBC % Diff Path Review Platelet Estimate PT INR APTT Specimen Type Sample Site pH Bicarbonate Actual Total CO2 Base Excess O2 Saturation O2 % ABG pCO2 ABG pO2 Hector Test Respiration Rate O2 Delivery Device Liter Flow Vent Mode Tidal Volume POC PEEP Sodium Potassium Chloride Carbon Dioxide Anion Gap BUN Creatinine Estim Creat Clear Calc Est GFR (MDRD) Af Amer Est GFR (MDRD) Non-Af BUN/Creatinine Ratio Glucose Hemoglobin A1c > 14.0 H Lactic Acid 3.7 H* Calcium Magnesium Total Bilirubin AST ALT Alkaline Phosphatase Total Creatine Kinase Total Protein Albumin Globulin Albumin/Globulin Ratio Triglycerides Urine Color Urine Clarity Urine pH Ur Specific [place] Urine Protein Urine Glucose (UA) Urine Ketones Urine Occult Blood Urine Nitrite Urine Bilirubin Urine Urobilinogen Ur Leukocyte Esterase Urine RBC Urine WBC Ur Squamous Epith Cells Amorphous Sediment Urine Bacteria Coarse Granular Casts Urine Mucus Urine Opiates Screen Urine Methadone Screen Ur Barbiturates Screen Ur Phencyclidine Scrn Ur Amphetamines Screen U Methamphetamin-MDMA U Benzodiazepines Scrn Urine Cocaine Screen U Cannabinoids Screen Ur Drug Screen Comment Acetone Level LARGE H S.aureus Protein A PCR MRSA (PCR) 12/24/20 12/24/20 12/24/20 05:45 05:53 06:45 WBC RBC Hgb Hct MCV MCH MCHC RDW Std Deviation RDW Coeff of Rabia Plt Count MPV Immature Gran % (Auto) Neut % (Auto) Lymph % (Auto) [place] % (Auto) Eos % (Auto) Baso % (Auto) Absolute Neuts (auto) Absolute Lymphs (auto) Nucleated RBC % Diff Path Review Platelet Estimate PT INR APTT Specimen Type ART Sample Site R Fem pH 6.75 L* Bicarbonate Actual 2.3 L Total CO2 < 5 Base Excess < -30 L O2 Saturation 96 O2 % ABG pCO2 16.4 L* ABG pO2 157 H Hector Test Positive Respiration Rate O2 Delivery Device NRB Liter Flow 15.0 Vent Mode Tidal Volume POC PEEP Sodium 132 L Potassium 4.8 Chloride 104 Carbon Dioxide 4.0 L* Anion Gap 24 H BUN 13 Creatinine 1.32 H Estim Creat Clear Calc 90.15 Est GFR (MDRD) Af Amer 89 Est GFR (MDRD) Non-Af 74 BUN/Creatinine Ratio 9.8 L Glucose 596 H* Hemoglobin A1c Lactic Acid Calcium 7.7 L Magnesium Total Bilirubin AST ALT Alkaline Phosphatase Total Creatine Kinase Total Protein Albumin Globulin Albumin/Globulin Ratio Triglycerides Urine Color Yellow Urine Clarity Clear Urine pH 5.0 Ur Specific [place] 1.020 Urine Protein 100 H Urine Glucose (UA) 1000 H Urine Ketones 150 H Urine Occult Blood 25 H Urine Nitrite Negative Urine Bilirubin Negative Urine Urobilinogen Normal Ur Leukocyte Esterase Negative Urine RBC 0 SEEN Urine WBC 0 SEEN Ur Squamous Epith Cells 0 SEEN Amorphous Sediment 3+ Urine Bacteria RARE Coarse Granular Casts 0-5 SEEN Urine Mucus 0 SEEN Urine Opiates Screen Urine Methadone Screen Ur Barbiturates Screen Ur Phencyclidine Scrn Ur Amphetamines Screen U Methamphetamin-MDMA U Benzodiazepines Scrn Urine Cocaine Screen U Cannabinoids Screen Ur Drug Screen Comment Acetone Level S.aureus Protein A PCR MRSA (PCR) 12/24/20 12/24/20 12/24/20 08:10 08:10 08:10 WBC RBC Hgb Hct MCV MCH MCHC RDW Std Deviation RDW Coeff of Rabia Plt Count MPV Immature Gran % (Auto) Neut % (Auto) Lymph % (Auto) [place] % (Auto) Eos % (Auto) Baso % (Auto) Absolute Neuts (auto) Absolute Lymphs (auto) Nucleated RBC % Diff Path Review Platelet Estimate PT INR APTT Specimen Type Sample Site pH Bicarbonate Actual Total CO2 Base Excess O2 Saturation O2 % ABG pCO2 ABG pO2 Hector Test Respiration Rate O2 Delivery Device Liter Flow Vent Mode Tidal Volume POC PEEP Sodium Potassium Chloride Carbon Dioxide Anion Gap BUN Creatinine Estim Creat Clear Calc Est GFR (MDRD) Af Amer Est GFR (MDRD) Non-Af BUN/Creatinine Ratio Glucose Hemoglobin A1c Lactic Acid 2.9 H* Calcium Magnesium 2.1 Total Bilirubin AST ALT Alkaline Phosphatase Total Creatine Kinase Total Protein Albumin Globulin Albumin/Globulin Ratio Triglycerides Urine Color Urine Clarity Urine pH Ur Specific [place] Urine Protein Urine Glucose (UA) Urine Ketones Urine Occult Blood Urine Nitrite Urine Bilirubin Urine Urobilinogen Ur Leukocyte Esterase Urine RBC Urine WBC Ur Squamous Epith Cells Amorphous Sediment Urine Bacteria Coarse Granular Casts Urine Mucus Urine Opiates Screen Urine Methadone Screen Ur Barbiturates Screen Ur Phencyclidine Scrn Ur Amphetamines Screen U Methamphetamin-MDMA U Benzodiazepines Scrn Urine Cocaine Screen U Cannabinoids Screen Ur Drug Screen Comment Acetone Level LARGE H S.aureus Protein A PCR MRSA (PCR) 12/24/20 12/24/20 12/24/20 08:10 08:40 09:09 WBC RBC Hgb Hct MCV MCH MCHC RDW Std Deviation RDW Coeff of Rabia Plt Count MPV Immature Gran % (Auto) Neut % (Auto) Lymph % (Auto) [place] % (Auto) Eos % (Auto) Baso % (Auto) Absolute Neuts (auto) Absolute Lymphs (auto) Nucleated RBC % Diff Path Review Platelet Estimate PT INR APTT Specimen Type ART Sample Site R Radial pH 7.01 L* Bicarbonate Actual 4.9 L Total CO2 6 Base Excess -26 L O2 Saturation 96 O2 % 21 ABG pCO2 19.4 L ABG pO2 117 H Hector Test Respiration Rate 12 O2 Delivery Device Liter Flow Vent Mode AC Tidal Volume 450 POC PEEP 5 Sodium 136 Potassium 4.2 Chloride 108 H Carbon Dioxide 6.0 L* Anion Gap 22 H BUN 13 Creatinine 1.34 H Estim Creat Clear Calc 88.81 Est GFR (MDRD) Af Amer 87 Est GFR (MDRD) Non-Af 72 BUN/Creatinine Ratio 9.7 L Glucose 482 H* Hemoglobin A1c Lactic Acid Calcium 7.7 L Magnesium Total Bilirubin AST ALT Alkaline Phosphatase Total Creatine Kinase Total Protein Albumin Globulin Albumin/Globulin Ratio Triglycerides Urine Color Urine Clarity Urine pH Ur Specific [place] Urine Protein Urine Glucose (UA) Urine Ketones Urine Occult Blood Urine Nitrite Urine Bilirubin Urine Urobilinogen Ur Leukocyte Esterase Urine RBC Urine WBC Ur Squamous Epith Cells Amorphous Sediment Urine Bacteria Coarse Granular Casts Urine Mucus Urine Opiates Screen NEGATIVE Urine Methadone Screen NEGATIVE Ur Barbiturates Screen NEGATIVE Ur Phencyclidine Scrn NEGATIVE Ur Amphetamines Screen NEGATIVE U Methamphetamin-MDMA NEGATIVE U Benzodiazepines Scrn NEGATIVE Urine Cocaine Screen NEGATIVE U Cannabinoids Screen NEGATIVE Ur Drug Screen Comment Acetone Level S.aureus Protein A PCR MRSA (PCR) 12/24/20 12/24/20 12/24/20 11:00 11:00 11:15 WBC RBC Hgb Hct MCV MCH MCHC RDW Std Deviation RDW Coeff of Rabia Plt Count MPV Immature Gran % (Auto) Neut % (Auto) Lymph % (Auto) [place] % (Auto) Eos % (Auto) Baso % (Auto) Absolute Neuts (auto) Absolute Lymphs (auto) Nucleated RBC % Diff Path Review Platelet Estimate PT INR APTT Specimen Type Sample Site pH Bicarbonate Actual Total CO2 Base Excess O2 Saturation O2 % ABG pCO2 ABG pO2 Hector Test Respiration Rate O2 Delivery Device Liter Flow Vent Mode Tidal Volume POC PEEP Sodium 141 Potassium 3.7 Chloride 114 H Carbon Dioxide 12.0 L Anion Gap 15 BUN 12 Creatinine 1.09 Estim Creat Clear Calc 104.89 Est GFR (MDRD) Af Amer 111 Est GFR (MDRD) Non-Af 92 BUN/Creatinine Ratio 11.0 Glucose 274 H Hemoglobin A1c Lactic Acid Calcium 7.9 L Magnesium Total Bilirubin AST ALT Alkaline Phosphatase Total Creatine Kinase 95 Total Protein Albumin Globulin Albumin/Globulin Ratio Triglycerides 492 H Urine Color Urine Clarity Urine pH Ur Specific [place] Urine Protein Urine Glucose (UA) Urine Ketones Urine Occult Blood Urine Nitrite Urine Bilirubin Urine Urobilinogen Ur Leukocyte Esterase Urine RBC Urine WBC Ur Squamous Epith Cells Amorphous Sediment Urine Bacteria Coarse Granular Casts Urine Mucus Urine Opiates Screen Urine Methadone Screen Ur Barbiturates Screen Ur Phencyclidine Scrn Ur Amphetamines Screen U Methamphetamin-MDMA U Benzodiazepines Scrn Urine Cocaine Screen U Cannabinoids Screen Ur Drug Screen Comment Acetone Level S.aureus Protein A PCR Cancelled MRSA (PCR) Cancelled - Other Studies Radiology: [] reviewed Other Studies: [] Route of nutrition/ use of supplements: [] Nutritional Intake: [] IV Site: [] Youssef Catheter: [] - Physical Exam General: Non-Cooperative HEENT: Atraumatic, PERRLA, EOMI Neck: Supple, No Nodes Lungs: Clear to auscultation, Normal air movement Cardiovascular: Tachycardic Abdomen: Soft, Non Tender, Non-Distended Extremities: No edema Skin: Ulcer/ Wound - L lateral thigh, reviewed photo Musculoskeletal: No Tenderness to Palpation of Joints or Extremities Neurological: Cranial nerves II-XII grossly intact - Assessment/Plan Antibiotics: [] Assessment/Plan: [] Active and Suspected Problems (Last Reviewed 10/27/20 @ 11:[address] 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 On vanc/zosyn, surg I&D planned. 12/10 surg cx with MS-CoNS, klebs, enterobacter, MRSE, and anaerobes. Will follow, thank you, d/w nursing
[2020-12-24] MEDS: Dextrose 5%-Lactated Ringers 1,000 ML 125 ML IV (14:00)
[2020-12-24 14:06] LABS: Bedside Glucose 222 mg/dL (70-110)
[2020-12-24] MEDS: Propofol 10MG/Ml 1,000 MG/100 ML Bottle 10.3 MG CONT INF (14:30)
--- NOTE | 2020-12-24 14:47 | CASEMGMT ---
Readmission chart review: Pt was initially admitted 12/09-12/13/20 for DKA, LLE wound and was taken for surgical I&D by Dr. Laura at that time. See [facility] assessment completed by Ronald JUNIOR on 12/10/20. Pt was sent home with wound vac, wound clinic f/u, and [facility]. Pt was seen at wound clinic yesterday and pt/grandma forgot to bring supplies so that they could hook pt back up to wound vac and then home health was supposed to come out today to replace wound vac. Pt returned to [facility] ED 12/24/20 at 0515 for pt acting funny, his hands were cold and he was breathing fast. Pt's blood sugar was 799 upon arrival to ED via bloodwork. Pt was admitted to ICU for DKA, severe sepsis and wound infection. Pt was intubated prior to admission per aprn recommendation to protect airway. Per ED physician note, pt's wound has necrotic eschar noted with muscle now exposed and per wound nurse, redness noted. Per [facility], they are declining to take pt back at this time due to home living conditions, see SW note from 12/24/20. Per [facility], APS and CPS were contacted on 12/21/20. Pt to be taken back for another surgical I&D by Dr. Landin and is still on ventilator at this time. Per all notes, pt is non-compliant diabetic as well. CM to follow for further discharge planning/needs. Tessa RHOADES CM
[2020-12-24] MEDS: Lidocaine 2% /Epi 1:100 (50ml) 50 ML Vial (14:57)
--- NOTE | 2020-12-24 15:09 | PCM.OPRPT ---
Report of Operation Date of Procedure: 12/24/20 Pre-Operative Diagnosis: 1. Nonhealing infected necrotic diabetic ulcer with abscess left posterior thigh. 2. DKA. 3. Sepsis. 4. Type I Diabetes mellitus, uncontrolled. 5. HgbA1c >14. Post-Operative Diagnosis: 1. Nonhealing infected necrotic diabetic ulcer with abscess left posterior thigh including necrotic muscle. 2. DKA. 3. Sepsis. 4. Type I Diabetes mellitus, uncontrolled. 5. HgbA1c >14. Surgery/Procedure Performed:: Surgical preparation left posterior thigh with incision and drainage and excisional debridement nonhealing infected necrotic diabetic ulcer with abscess including necrotic muscle (276 cm2). Description of Surgical Findings:: The patient is a 20 year old M with a history of Type 1 diabetes mellitus presents with recurrent DKA. He is currently intubated in the ICU. His WBC was 24.8. His HgbA1c was >14. His initial Glucose was 701. At present it is down to 274. Lactate was 3.7. He was admitted a couple of weeks ago for the same DKA. His Glucose at that time was 1000. His HgbA1c at that time was >16. He underwent a debridement of a necrotic ulcer left posterior thigh on 12/10/20. He was discharged on the VAC. In the ED today, he was confused and didn't know where his VAC was. He was septic with severe metabolic acidosis which prompted the intubation and admission to the ICU. He was started on Vancomycin and Zosyn. His left posterior thigh ulcer has worsened since his discharge. I was asked to evaluate this patient for surgical options for treatment. Urgent surgery is needed today because of increased risk of worsening infection, amputation, and . Size of defect left posterior thigh - 12 x 23 x 2 cm. 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 Nonhealing infected necrotic diabetic ulcer abscess with necrotic muscle left posterior thigh to Pathology and Microbiology. 2. MRSA Wound DNA by PCR. Drains: None. Estimated Blood Loss (mL): 150 ml. Description of Procedure: Patient was taken to OR in supine position. He was already intubated from the ICU. He was placed under general anesthesia. He was then placed in the lateral position. The left posterior thigh was prepped and draped in the usual fashion. SCD's were placed for DVT prophylaxis. Perioperative antibiotics were given intravenously. Using xylocaine with epinephrine, the ulcer was infiltrated to help with postoperative pain relief. Using a scalpel I made an incision around the ulcer to include the necrotic skin and the underlying induration. Pus was noted in the subcutaneous tissue. Some bubbles were noted proximally that prompted further excision and debridement. A lot of fat necrosis was present. The exudate at the base of the ulcer was excised and debrided down to the muscle. There was necrotic muscle proximally that was excised until normal pink viable muscle was seen proximally. The remaining muscles in the base of the ulcer appeared soft and pink and viable without further evidence of necrosis. The extensive fat necrosis was also excised and debrided. Some of the tissue was sent to Pathology for analysis to rule out carcinoma and some of the tissue was sent to Microbiology for culture. A positive culture will necessitate antibiotic therapy. MRSA Wound DNA by PCR was also done. There was a fair amount of bleeding from the muscle after excision and debridement. Hemostasis was obtained with electrocautery. The wound was copiously irrigated with saline. The size of the ulcer after incision and drainage and excisional debridement was 12 x 23 x 2 cm of 276 cm2. The ulcer was dressed with Mepitel nonadherent dressing followed by Kerlix gauze and Betadine followed by dry Kerlix gauze and ABD pads and a compression SUSHIL wrap. Patient tolerated the procedure well and was sent to ICU intubated and in serious condition because of his underlying DKA and sepsis. Postoperatively will apply the VAC. Grafts/Implants Used: None. - Complications None. - Admit VTE Documentation VTE Present on Admission: No VTE Mechan Device Prophylaxis: SCD's VTE Pharm Prophylaxis ordered?: Yes Surgery Charges CPT - 00268 ICD-10 - L97.123, I96, L02.416, E10.10, A41.9, E10.65, R73.09 12069 L97.123, I96, L02.416, E10.10, A41.9, E10.65, R73.09 36328 L97.123, I96, L02.416, E10.10, A41.9, E10.65, R73.09 47411 L02.416, L97.123, I96, E10.10, A41.9, E10.65, R73.09
[2020-12-24 15:36] LABS: Bedside Glucose 205 mg/dL (70-110)
[2020-12-24 16:20] LABS: Anion Gap 10 (5-15); BUN 11 mg/dL (7-18); Calcium,Total 8.3 mg/dL (8.5-10.1); Chloride 116 mmol/L (98-107); EST Glomerular Filtration Rate 91 mL/min (>60); Est Glom Filt Rate - Afr Amer 110 mL/min (>60); Estimated Creatinine Clearance 103.94 ml/min; Glucose 220 mg/dL (74-106); Potassium 3.2 mmol/L (3.5-5.1); Sodium Level 142 mmol/L (136-145)
[2020-12-24 16:45] LABS: Bedside Glucose 216 mg/dL (70-110)
[2020-12-24 18:16] LABS: Bedside Glucose 219 mg/dL (70-110)
[2020-12-24] MEDS: Acetaminophen 650 MG/20 ML UDC GT (18:26)
[2020-12-24 18:41] LABS: Bedside Glucose 191 mg/dL (70-110)
[2020-12-24 19:20] LABS: Anion Gap 7 (5-15); BUN 11 mg/dL (7-18); BUN/Creat Ratio 10.2 RATIO (10-20); Calcium,Total 8.3 mg/dL (8.5-10.1); Chloride 117 mmol/L (98-107); Creatinine, Serum 1.08 mg/dL (0.70-1.30); EST Glomerular Filtration Rate 93 mL/min (>60); Est Glom Filt Rate - Afr Amer 112 mL/min (>60); Estimated Creatinine Clearance 105.86 ml/min; Glucose 197 mg/dL (74-106); Potassium 3.1 mmol/L (3.5-5.1); Sodium Level 143 mmol/L (136-145)
[2020-12-24] MEDS: Famotidine 20 MG Tablet GT (21:15)
[2020-12-24] MEDS: Potassium Chloride 10mEq/100mL 10 MEQ/100 ML IV.SOLN. 100 MEQ IV BOLUS ×3 (21:15→23:34)
[2020-12-24] MEDS: Chlorhexidine 15 ML PO (21:16)
[2020-12-24] MEDS: Dextrose 5%-Lactated Ringers 1,000 ML 150 ML IV (21:16)
[2020-12-24 22:36] LABS: Bedside Glucose 131 mg/dL (70-110)
[2020-12-24 22:36] LABS: Bedside Glucose 185 mg/dL (70-110)
[2020-12-24 22:36] LABS: Bedside Glucose 160 mg/dL (70-110)
[2020-12-25] VITALS (30 sets, daily range): BP systolic 86–120; BP diastolic 42–80; PULSE 105–140; RESP 11–22; TEMP 36.9–38.9; O2SAT 96–100
[2020-12-25 00:05] LABS: Anion Gap 7 (5-15); BUN 11 mg/dL (7-18); Calcium,Total 8.3 mg/dL (8.5-10.1); Chloride 117 mmol/L (98-107); Creatinine, Serum 0.85 mg/dL (0.70-1.30); EST Glomerular Filtration Rate 123 mL/min (>60); Est Glom Filt Rate - Afr Amer 148 mL/min (>60); Estimated Creatinine Clearance 134.51 ml/min; Glucose 143 mg/dL (74-106); Potassium 3.5 mmol/L (3.5-5.1); Sodium Level 144 mmol/L (136-145)
[2020-12-25] MEDS: Potassium Chloride 10mEq/100mL 10 MEQ/100 ML IV.SOLN. 100 MEQ IV BOLUS ×5 (00:35→10:22)
[2020-12-25] MEDS: Acetaminophen 650 MG/20 ML UDC GT ×2 (00:35→06:10)
[2020-12-25 00:46] LABS: Bedside Glucose 138 mg/dL (70-110)
[2020-12-25 00:46] LABS: Bedside Glucose 142 mg/dL (70-110)
[2020-12-25] MEDS: Insulin Lispro 100 UNIT/ML INSULN.PEN SC ×5 (02:16→22:04)
[2020-12-25 04:11] LABS: Bedside Glucose 276 mg/dL (70-110)
[2020-12-25 04:11] LABS: Bedside Glucose 263 mg/dL (70-110)
[2020-12-25 04:18] LABS: Absolute Lymphocyte Count 0.87 X10^3/uL (0.83-4.51); Absolute Neutrophil Count 4.3 X10^3/uL (2.0-7.7); Basophil# 0.04 X10^3/uL; Basophil% 0.7 % (0-1); Eosinophil# 0.17 X10^3/uL; Eosinophils% 2.9 % (0-5); Hematocrit 31.3 % (40-54); Hemoglobin 10.9 g/dL (13.0-16.5); Lymphocyte # 0.87 X10^3/ul (4.0); Lymphocyte % 14.7 % (19-41); Mean Corp Hgb Conc 34.8 g/dL (32-36); Mean Corpuscular Hgb 29.9 pg (27.0-32.0); Mean Platelet Vol. 8.8 fl (6.2-12.0); Monocyte# 0.53 X10^3/uL; Monocyte% 8.9 % (0-10); NRBC Flagged by Analyzer 0 % (0-5); Neutrophil # 4.27 X10^3/uL (2.7-7.7); Platelet Count 299 K/mm3 (150-450); RBC Distribution Width CV 12.6 % (11.6-14.6); RBC Distribution Width SD 39.5 fl (35.1-43.9); Red Blood Count 3.64 M/mm3 (4.6-6.2); White Blood Count 5.9 K/mm3 (4.4-11.0)
[2020-12-25] MEDS: Lactated Ringers 1,000 ML 150 ML IV (04:20)
[2020-12-25 04:37] LABS: ALB/GLOB Ratio 0.8 RATIO (0.9-2.4); AST(SGOT) 12 U/L (15-37); Alanine Aminotransfer ALT/SGPT 14 U/L (16-61); Albumin, Serum 2.6 g/dL (3.2-5.0); Alkaline Phosphatase 94 U/L (45-117); Anion Gap 7 (5-15); BUN 9 mg/dL (7-18); BUN/Creat Ratio 8.9 RATIO (10-20); Calcium,Total 8.4 mg/dL (8.5-10.1); Chloride 114 mmol/L (98-107); Creatinine, Serum 1.01 mg/dL (0.70-1.30); EST Glomerular Filtration Rate 100 mL/min (>60); Est Glom Filt Rate - Afr Amer 121 mL/min (>60); Globulin 3.2 g/dL (2.2-4.2); Glucose 271 mg/dL (74-106); Prealbumin 9.1 mg/dL (20.0-40.0); Protein, Total 5.8 g/dL (6.4-8.2); Sodium Level 141 mmol/L (136-145)
[2020-12-25] MEDS: Potassium Chloride Oral Soln 20 MEQ/15 ML UDC 40 MEQ GT (06:10)
--- NOTE | 2020-12-25 06:19 | PCM.PN.INT ---
Subjective: The patient was seen and examined at the bedside this morning. Events from the last 24 hours have been reviewed. The patient was febrile overnight with a T-max of 102.1 ?F. The patient remains tachycardic but is otherwise hemodynamically stable. Ventilator requirements are minimal. The patient did well this morning on his spontaneous breathing trial. His continuous insulin infusion has been off since 10:30 PM last night. Potassium is low this morning at 3.0. Anion gap is closed. The patient was taken to the OR yesterday afternoon where he underwent I&D with excisional debridement of his nonhealing infected necrotic diabetic ulcer. The patient is alert and following commands appropriately. Objective: The patient's most recent lab work, culture data and imaging studies have all been personally reviewed. Wound, blood and urine cultures are pending. Rapid coronavirus antigen testing was negative. General: Alert, Cooperative, - - Remains intubated and is currently tolerating spontaneous mode of mechanical ventilation. HEENT: Atraumatic, PERRLA, Normocephalic Oral: No Gingival or Mucosal Lesions/ Ulcerations, - - Stable endotracheal and OG tubes Neck: Supple, No Nodes, Trachea Midline Lungs: Normal air movement, No rhonchi, No wheeze, No rales Cardiovascular: Normal S1, Normal S2, No murmurs, Tachycardic Abdomen: Bowel Sounds Present, Soft, Non Tender Extremities: No clubbing, No cyanosis, No edema Skin: Ulcer/ Wound Musculoskeletal: No Tenderness to Palpation of Joints or Extremities Lymphatic: No Cervical, Supraclavicular, or Inguinal Adenopathy Neurological: - - No focal neurological deficits. Alert and following commands appropriately. Vital Signs Temp Pulse Resp BP Pulse Ox 102 F H 131 H 18 112/60 98 12/25/20 05:00 12/25/20 06:00 12/25/20 06:00 12/25/20 06:00 12/25/20 06:00 Oxygen Flow Rate (L/min) 15 Oxygen Delivery Method Mechanical Ventilator Weight: 153 lb 14.122 oz Body Mass Index (BMI) 20.0 Finger Stick Blood Glucose 138 Intake and Output for Last 24 Hours 12/23/20 12/24/20 12/25/20 23:59 23:59 23:59 Intake Total 7654.81 / 7668.91 1317.01 / 1317.01 Output Total 4480 / 4540 1160 / 1160 Balance 3174.81 / 3128.91 157.01 / 157.01 Labs (Last 48 Hours) 12/24/20 12/24/20 12/24/20 05:32 05:35 05:35 WBC 24.8 H RBC 5.56 Hgb 16.9 H Hct 50.4 MCV 90.6 MCH 30.4 MCHC 33.5 RDW Std Deviation 40.3 RDW Coeff of Rabia 12.2 Plt Count 799 H* MPV 9.4 Immature Gran % (Auto) 3.600 H Neut % (Auto) 76.5 H Lymph % (Auto) 11.2 L [place] % (Auto) 7.2 Eos % (Auto) 0.5 Baso % (Auto) 1.0 Absolute Neuts (auto) 18.9 H Absolute Lymphs (auto) 2.77 Nucleated RBC % 0 Diff Path Review Reviewed Platelet Estimate MKD INC PT 15.5 H INR 1.3 APTT 30.6 Specimen Type Sample Site pH Bicarbonate Actual Total CO2 Base Excess O2 Saturation O2 % ABG pCO2 ABG pO2 Hector Test Respiration Rate O2 Delivery Device Liter Flow Vent Mode Tidal Volume POC PEEP Sodium Potassium Chloride Carbon Dioxide Anion Gap BUN Creatinine Estim Creat Clear Calc Est GFR (MDRD) Af Amer Est GFR (MDRD) Non-Af BUN/Creatinine Ratio Glucose Hemoglobin A1c Lactic Acid Calcium Magnesium Total Bilirubin AST ALT Alkaline Phosphatase Total Creatine Kinase Total Protein Albumin Globulin Albumin/Globulin Ratio Prealbumin Triglycerides Urine Color Urine Clarity Urine pH Ur Specific [place] Urine Protein Urine Glucose (UA) Urine Ketones Urine Occult Blood Urine Nitrite Urine Bilirubin Urine Urobilinogen Ur Leukocyte Esterase Urine RBC Urine WBC Ur Squamous Epith Cells Amorphous Sediment Urine Bacteria Coarse Granular Casts Urine Mucus Urine Opiates Screen Urine Methadone Screen Ur Barbiturates Screen Ur Phencyclidine Scrn Ur Amphetamines Screen U Methamphetamin-MDMA U Benzodiazepines Scrn Urine Cocaine Screen U Cannabinoids Screen Ur Drug Screen Comment Acetone Level S.aureus Protein A PCR MRSA (PCR) POC Glucose > 500 H* 12/24/20 12/24/20 12/24/20 05:35 05:35 05:35 WBC RBC Hgb Hct MCV MCH MCHC RDW Std Deviation RDW Coeff of Rabia Plt Count MPV Immature Gran % (Auto) Neut % (Auto) Lymph % (Auto) [place] % (Auto) Eos % (Auto) Baso % (Auto) Absolute Neuts (auto) Absolute Lymphs (auto) Nucleated RBC % Diff Path Review Platelet Estimate PT INR APTT Specimen Type Sample Site pH Bicarbonate Actual Total CO2 Base Excess O2 Saturation O2 % ABG pCO2 ABG pO2 Hector Test Respiration Rate O2 Delivery Device Liter Flow Vent Mode Tidal Volume POC PEEP Sodium 126 L Potassium 4.4 Chloride 96 L Carbon Dioxide 6.0 L* Anion Gap 24 H BUN 13 Creatinine 1.53 H Estim Creat Clear Calc 77.78 Est GFR (MDRD) Af Amer 75 Est GFR (MDRD) Non-Af 62 BUN/Creatinine Ratio 8.5 L Glucose 701 H* Hemoglobin A1c Lactic Acid 3.7 H* Calcium 8.8 Magnesium 2.6 Total Bilirubin 0.70 AST 14 L ALT 21 Alkaline Phosphatase 210 H Total Creatine Kinase Total Protein 9.4 H Albumin 4.6 Globulin 4.8 H Albumin/Globulin Ratio 1.0 Prealbumin Triglycerides Urine Color Urine Clarity Urine pH Ur Specific [place] Urine Protein Urine Glucose (UA) Urine Ketones Urine Occult Blood Urine Nitrite Urine Bilirubin Urine Urobilinogen Ur Leukocyte Esterase Urine RBC Urine WBC Ur Squamous Epith Cells Amorphous Sediment Urine Bacteria Coarse Granular Casts Urine Mucus Urine Opiates Screen Urine Methadone Screen Ur Barbiturates Screen Ur Phencyclidine Scrn Ur Amphetamines Screen U Methamphetamin-MDMA U Benzodiazepines Scrn Urine Cocaine Screen U Cannabinoids Screen Ur Drug Screen Comment Acetone Level LARGE H S.aureus Protein A PCR MRSA (PCR) POC Glucose 12/24/20 12/24/20 12/24/20 05:35 05:45 05:53 WBC RBC Hgb Hct MCV MCH MCHC RDW Std Deviation RDW Coeff of Rabia Plt Count MPV Immature Gran % (Auto) Neut % (Auto) Lymph % (Auto) [place] % (Auto) Eos % (Auto) Baso % (Auto) Absolute Neuts (auto) Absolute Lymphs (auto) Nucleated RBC % Diff Path Review Platelet Estimate PT INR APTT Specimen Type ART Sample Site R Fem pH 6.75 L* Bicarbonate Actual 2.3 L Total CO2 < 5 Base Excess < -30 L O2 Saturation 96 O2 % ABG pCO2 16.4 L* ABG pO2 157 H Hector Test Positive Respiration Rate O2 Delivery Device NRB Liter Flow 15.0 Vent Mode Tidal Volume POC PEEP Sodium Potassium Chloride Carbon Dioxide Anion Gap BUN Creatinine Estim Creat Clear Calc Est GFR (MDRD) Af Amer Est GFR (MDRD) Non-Af BUN/Creatinine Ratio Glucose Hemoglobin A1c > 14.0 H Lactic Acid Calcium Magnesium Total Bilirubin AST ALT Alkaline Phosphatase Total Creatine Kinase Total Protein Albumin Globulin Albumin/Globulin Ratio Prealbumin Triglycerides Urine Color Yellow Urine Clarity Clear Urine pH 5.0 Ur Specific [place] 1.020 Urine Protein 100 H Urine Glucose (UA) 1000 H Urine Ketones 150 H Urine Occult Blood 25 H Urine Nitrite Negative Urine Bilirubin Negative Urine Urobilinogen Normal Ur Leukocyte Esterase Negative Urine RBC 0 SEEN Urine WBC 0 SEEN Ur Squamous Epith Cells 0 SEEN Amorphous Sediment 3+ Urine Bacteria RARE Coarse Granular Casts 0-5 SEEN Urine Mucus 0 SEEN Urine Opiates Screen Urine Methadone Screen Ur Barbiturates Screen Ur Phencyclidine Scrn Ur Amphetamines Screen U Methamphetamin-MDMA U Benzodiazepines Scrn Urine Cocaine Screen U Cannabinoids Screen Ur Drug Screen Comment Acetone Level S.aureus Protein A PCR MRSA (PCR) POC Glucose 12/24/20 12/24/20 12/24/20 06:37 06:45 08:10 WBC RBC Hgb Hct MCV MCH MCHC RDW Std Deviation RDW Coeff of Rabia Plt Count MPV Immature Gran % (Auto) Neut % (Auto) Lymph % (Auto) [place] % (Auto) Eos % (Auto) Baso % (Auto) Absolute Neuts (auto) Absolute Lymphs (auto) Nucleated RBC % Diff Path Review Platelet Estimate PT INR APTT Specimen Type Sample Site pH Bicarbonate Actual Total CO2 Base Excess O2 Saturation O2 % ABG pCO2 ABG pO2 Hector Test Respiration Rate O2 Delivery Device Liter Flow Vent Mode Tidal Volume POC PEEP Sodium 132 L Potassium 4.8 Chloride 104 Carbon Dioxide 4.0 L* Anion Gap 24 H BUN 13 Creatinine 1.32 H Estim Creat Clear Calc 90.15 Est GFR (MDRD) Af Amer 89 Est GFR (MDRD) Non-Af 74 BUN/Creatinine Ratio 9.8 L Glucose 596 H* Hemoglobin A1c Lactic Acid Calcium 7.7 L Magnesium 2.1 Total Bilirubin AST ALT Alkaline Phosphatase Total Creatine Kinase Total Protein Albumin Globulin Albumin/Globulin Ratio Prealbumin Triglycerides Urine Color Urine Clarity Urine pH Ur Specific [place] Urine Protein Urine Glucose (UA) Urine Ketones Urine Occult Blood Urine Nitrite Urine Bilirubin Urine Urobilinogen Ur Leukocyte Esterase Urine RBC Urine WBC Ur Squamous Epith Cells Amorphous Sediment Urine Bacteria Coarse Granular Casts Urine Mucus Urine Opiates Screen Urine Methadone Screen Ur Barbiturates Screen Ur Phencyclidine Scrn Ur Amphetamines Screen U Methamphetamin-MDMA U Benzodiazepines Scrn Urine Cocaine Screen U Cannabinoids Screen Ur Drug Screen Comment Acetone Level S.aureus Protein A PCR MRSA (PCR) POC Glucose > 500 H* 12/24/20 12/24/20 12/24/20 08:10 08:10 08:10 WBC RBC Hgb Hct MCV MCH MCHC RDW Std Deviation RDW Coeff of Rabia Plt Count MPV Immature Gran % (Auto) Neut % (Auto) Lymph % (Auto) [place] % (Auto) Eos % (Auto) Baso % (Auto) Absolute Neuts (auto) Absolute Lymphs (auto) Nucleated RBC % Diff Path Review Platelet Estimate PT INR APTT Specimen Type Sample Site pH Bicarbonate Actual Total CO2 Base Excess O2 Saturation O2 % ABG pCO2 ABG pO2 Hector Test Respiration Rate O2 Delivery Device Liter Flow Vent Mode Tidal Volume POC PEEP Sodium 136 Potassium 4.2 Chloride 108 H Carbon Dioxide 6.0 L* Anion Gap 22 H BUN 13 Creatinine 1.34 H Estim Creat Clear Calc 88.81 Est GFR (MDRD) Af Amer 87 Est GFR (MDRD) Non-Af 72 BUN/Creatinine Ratio 9.7 L Glucose 482 H* Hemoglobin A1c Lactic Acid 2.9 H* Calcium 7.7 L Magnesium Total Bilirubin AST ALT Alkaline Phosphatase Total Creatine Kinase Total Protein Albumin Globulin Albumin/Globulin Ratio Prealbumin Triglycerides Urine Color Urine Clarity Urine pH Ur Specific [place] Urine Protein Urine Glucose (UA) Urine Ketones Urine Occult Blood Urine Nitrite Urine Bilirubin Urine Urobilinogen Ur Leukocyte Esterase Urine RBC Urine WBC Ur Squamous Epith Cells Amorphous Sediment Urine Bacteria Coarse Granular Casts Urine Mucus Urine Opiates Screen Urine Methadone Screen Ur Barbiturates Screen Ur Phencyclidine Scrn Ur Amphetamines Screen U Methamphetamin-MDMA U Benzodiazepines Scrn Urine Cocaine Screen U Cannabinoids Screen Ur Drug Screen Comment Acetone Level LARGE H S.aureus Protein A PCR MRSA (PCR) POC Glucose 12/24/20 12/24/20 12/24/20 08:12 08:40 08:57 WBC RBC Hgb Hct MCV MCH MCHC RDW Std Deviation RDW Coeff of Rabia Plt Count MPV Immature Gran % (Auto) Neut % (Auto) Lymph % (Auto) [place] % (Auto) Eos % (Auto) Baso % (Auto) Absolute Neuts (auto) Absolute Lymphs (auto) Nucleated RBC % Diff Path Review Platelet Estimate PT INR APTT Specimen Type Sample Site pH Bicarbonate Actual Total CO2 Base Excess O2 Saturation O2 % ABG pCO2 ABG pO2 Hector Test Respiration Rate O2 Delivery Device Liter Flow Vent Mode Tidal Volume POC PEEP Sodium Potassium Chloride Carbon Dioxide Anion Gap BUN Creatinine Estim Creat Clear Calc Est GFR (MDRD) Af Amer Est GFR (MDRD) Non-Af BUN/Creatinine Ratio Glucose Hemoglobin A1c Lactic Acid Calcium Magnesium Total Bilirubin AST ALT Alkaline Phosphatase Total Creatine Kinase Total Protein Albumin Globulin Albumin/Globulin Ratio Prealbumin Triglycerides Urine Color Urine Clarity Urine pH Ur Specific [place] Urine Protein Urine Glucose (UA) Urine Ketones Urine Occult Blood Urine Nitrite Urine Bilirubin Urine Urobilinogen Ur Leukocyte Esterase Urine RBC Urine WBC Ur Squamous Epith Cells Amorphous Sediment Urine Bacteria Coarse Granular Casts Urine Mucus Urine Opiates Screen NEGATIVE Urine Methadone Screen NEGATIVE Ur Barbiturates Screen NEGATIVE Ur Phencyclidine Scrn NEGATIVE Ur Amphetamines Screen NEGATIVE U Methamphetamin-MDMA NEGATIVE U Benzodiazepines Scrn NEGATIVE Urine Cocaine Screen NEGATIVE U Cannabinoids Screen NEGATIVE Ur Drug Screen Comment Acetone Level S.aureus Protein A PCR MRSA (PCR) POC Glucose 466 H* 368 H 12/24/20 12/24/20 12/24/20 09:09 09:53 11:00 WBC RBC Hgb Hct MCV MCH MCHC RDW Std Deviation RDW Coeff of Rabia Plt Count MPV Immature Gran % (Auto) Neut % (Auto) Lymph % (Auto) [place] % (Auto) Eos % (Auto) Baso % (Auto) Absolute Neuts (auto) Absolute Lymphs (auto) Nucleated RBC % Diff Path Review Platelet Estimate PT INR APTT Specimen Type ART Sample Site R Radial pH 7.01 L* Bicarbonate Actual 4.9 L Total CO2 6 Base Excess -26 L O2 Saturation 96 O2 % 21 ABG pCO2 19.4 L ABG pO2 117 H Hector Test Respiration Rate 12 O2 Delivery Device Liter Flow Vent Mode AC Tidal Volume 450 POC PEEP 5 Sodium 141 Potassium 3.7 Chloride 114 H Carbon Dioxide 12.0 L Anion Gap 15 BUN 12 Creatinine 1.09 Estim Creat Clear Calc 104.89 Est GFR (MDRD) Af Amer 111 Est GFR (MDRD) Non-Af 92 BUN/Creatinine Ratio 11.0 Glucose 274 H Hemoglobin A1c Lactic Acid Calcium 7.9 L Magnesium Total Bilirubin AST ALT Alkaline Phosphatase Total Creatine Kinase Total Protein Albumin Globulin Albumin/Globulin Ratio Prealbumin Triglycerides Urine Color Urine Clarity Urine pH Ur Specific [place] Urine Protein Urine Glucose (UA) Urine Ketones Urine Occult Blood Urine Nitrite Urine Bilirubin Urine Urobilinogen Ur Leukocyte Esterase Urine RBC Urine WBC Ur Squamous Epith Cells Amorphous Sediment Urine Bacteria Coarse Granular Casts Urine Mucus Urine Opiates Screen Urine Methadone Screen Ur Barbiturates Screen Ur Phencyclidine Scrn Ur Amphetamines Screen U Methamphetamin-MDMA U Benzodiazepines Scrn Urine Cocaine Screen U Cannabinoids Screen Ur Drug Screen Comment Acetone Level S.aureus Protein A PCR MRSA (PCR) POC Glucose 332 H 12/24/20 12/24/20 12/24/20 11:00 11:02 11:15 WBC RBC Hgb Hct MCV MCH MCHC RDW Std Deviation RDW Coeff of Rabia Plt Count MPV Immature Gran % (Auto) Neut % (Auto) Lymph % (Auto) [place] % (Auto) Eos % (Auto) Baso % (Auto) Absolute Neuts (auto) Absolute Lymphs (auto) Nucleated RBC % Diff Path Review Platelet Estimate PT INR APTT Specimen Type Sample Site pH Bicarbonate Actual Total CO2 Base Excess O2 Saturation O2 % ABG pCO2 ABG pO2 Hector Test Respiration Rate O2 Delivery Device Liter Flow Vent Mode Tidal Volume POC PEEP Sodium Potassium Chloride Carbon Dioxide Anion Gap BUN Creatinine Estim Creat Clear Calc Est GFR (MDRD) Af Amer Est GFR (MDRD) Non-Af BUN/Creatinine Ratio Glucose Hemoglobin A1c Lactic Acid Calcium Magnesium Total Bilirubin AST ALT Alkaline Phosphatase Total Creatine Kinase 95 Total Protein Albumin Globulin Albumin/Globulin Ratio Prealbumin Triglycerides 492 H Urine Color Urine Clarity Urine pH Ur Specific [place] Urine Protein Urine Glucose (UA) Urine Ketones Urine Occult Blood Urine Nitrite Urine Bilirubin Urine Urobilinogen Ur Leukocyte Esterase Urine RBC Urine WBC Ur Squamous Epith Cells Amorphous Sediment Urine Bacteria Coarse Granular Casts Urine Mucus Urine Opiates Screen Urine Methadone Screen Ur Barbiturates Screen Ur Phencyclidine Scrn Ur Amphetamines Screen U Methamphetamin-MDMA U Benzodiazepines Scrn Urine Cocaine Screen U Cannabinoids Screen Ur Drug Screen Comment Acetone Level S.aureus Protein A PCR Cancelled MRSA (PCR) Cancelled POC Glucose 250 H 12/24/20 12/24/20 12/24/20 12:20 12:58 13:56 WBC RBC Hgb Hct MCV MCH MCHC RDW Std Deviation RDW Coeff of Rabia Plt Count MPV Immature Gran % (Auto) Neut % (Auto) Lymph % (Auto) [place] % (Auto) Eos % (Auto) Baso % (Auto) Absolute Neuts (auto) Absolute Lymphs (auto) Nucleated RBC % Diff Path Review Platelet Estimate PT INR APTT Specimen Type Sample Site pH Bicarbonate Actual Total CO2 Base Excess O2 Saturation O2 % ABG pCO2 ABG pO2 Hector Test Respiration Rate O2 Delivery Device Liter Flow Vent Mode Tidal Volume POC PEEP Sodium Potassium Chloride Carbon Dioxide Anion Gap BUN Creatinine Estim Creat Clear Calc Est GFR (MDRD) Af Amer Est GFR (MDRD) Non-Af BUN/Creatinine Ratio Glucose Hemoglobin A1c Lactic Acid Calcium Magnesium Total Bilirubin AST ALT Alkaline Phosphatase Total Creatine Kinase Total Protein Albumin Globulin Albumin/Globulin Ratio Prealbumin Triglycerides Urine Color Urine Clarity Urine pH Ur Specific [place] Urine Protein Urine Glucose (UA) Urine Ketones Urine Occult Blood Urine Nitrite Urine Bilirubin Urine Urobilinogen Ur Leukocyte Esterase Urine RBC Urine WBC Ur Squamous Epith Cells Amorphous Sediment Urine Bacteria Coarse Granular Casts Urine Mucus Urine Opiates Screen Urine Methadone Screen Ur Barbiturates Screen Ur Phencyclidine Scrn Ur Amphetamines Screen U Methamphetamin-MDMA U Benzodiazepines Scrn Urine Cocaine Screen U Cannabinoids Screen Ur Drug Screen Comment Acetone Level S.aureus Protein A PCR MRSA (PCR) POC Glucose 230 H 205 H 222 H 12/24/20 12/24/20 12/24/20 15:29 15:40 16:39 WBC RBC Hgb Hct MCV MCH MCHC RDW Std Deviation RDW Coeff of Rabia Plt Count MPV Immature Gran % (Auto) Neut % (Auto) Lymph % (Auto) [place] % (Auto) Eos % (Auto) Baso % (Auto) Absolute Neuts (auto) Absolute Lymphs (auto) Nucleated RBC % Diff Path Review Platelet Estimate PT INR APTT Specimen Type Sample Site pH Bicarbonate Actual Total CO2 Base Excess O2 Saturation O2 % ABG pCO2 ABG pO2 Hector Test Respiration Rate O2 Delivery Device Liter Flow Vent Mode Tidal Volume POC PEEP Sodium 142 Potassium 3.2 L Chloride 116 H Carbon Dioxide 16.0 L Anion Gap 10 BUN 11 Creatinine 1.10 Estim Creat Clear Calc 103.94 Est GFR (MDRD) Af Amer 110 Est GFR (MDRD) Non-Af 91 BUN/Creatinine Ratio 10.0 Glucose 220 H Hemoglobin A1c Lactic Acid Calcium 8.3 L Magnesium Total Bilirubin AST ALT Alkaline Phosphatase Total Creatine Kinase Total Protein Albumin Globulin Albumin/Globulin Ratio Prealbumin Triglycerides Urine Color Urine Clarity Urine pH Ur Specific [place] Urine Protein Urine Glucose (UA) Urine Ketones Urine Occult Blood Urine Nitrite Urine Bilirubin Urine Urobilinogen Ur Leukocyte Esterase Urine RBC Urine WBC Ur Squamous Epith Cells Amorphous Sediment Urine Bacteria Coarse Granular Casts Urine Mucus Urine Opiates Screen Urine Methadone Screen Ur Barbiturates Screen Ur Phencyclidine Scrn Ur Amphetamines Screen U Methamphetamin-MDMA U Benzodiazepines Scrn Urine Cocaine Screen U Cannabinoids Screen Ur Drug Screen Comment Acetone Level S.aureus Protein A PCR MRSA (PCR) POC Glucose 205 H 216 H 12/24/20 12/24/20 12/24/20 17:37 18:34 18:55 WBC RBC Hgb Hct MCV MCH MCHC RDW Std Deviation RDW Coeff of Rabia Plt Count MPV Immature Gran % (Auto) Neut % (Auto) Lymph % (Auto) [place] % (Auto) Eos % (Auto) Baso % (Auto) Absolute Neuts (auto) Absolute Lymphs (auto) Nucleated RBC % Diff Path Review Platelet Estimate PT INR APTT Specimen Type Sample Site pH Bicarbonate Actual Total CO2 Base Excess O2 Saturation O2 % ABG pCO2 ABG pO2 Hector Test Respiration Rate O2 Delivery Device Liter Flow Vent Mode Tidal Volume POC PEEP Sodium 143 Potassium 3.1 L Chloride 117 H Carbon Dioxide 19.0 L Anion Gap 7 BUN 11 Creatinine 1.08 Estim Creat Clear Calc 105.86 Est GFR (MDRD) Af Amer 112 Est GFR (MDRD) Non-Af 93 BUN/Creatinine Ratio 10.2 Glucose 197 H Hemoglobin A1c Lactic Acid Calcium 8.3 L Magnesium Total Bilirubin AST ALT Alkaline Phosphatase Total Creatine Kinase Total Protein Albumin Globulin Albumin/Globulin Ratio Prealbumin Triglycerides Urine Color Urine Clarity Urine pH Ur Specific [place] Urine Protein Urine Glucose (UA) Urine Ketones Urine Occult Blood Urine Nitrite Urine Bilirubin Urine Urobilinogen Ur Leukocyte Esterase Urine RBC Urine WBC Ur Squamous Epith Cells Amorphous Sediment Urine Bacteria Coarse Granular Casts Urine Mucus Urine Opiates Screen Urine Methadone Screen Ur Barbiturates Screen Ur Phencyclidine Scrn Ur Amphetamines Screen U Methamphetamin-MDMA U Benzodiazepines Scrn Urine Cocaine Screen U Cannabinoids Screen Ur Drug Screen Comment Acetone Level S.aureus Protein A PCR MRSA (PCR) POC Glucose 219 H 191 H 12/24/20 12/24/20 12/24/20 19:40 20:40 21:39 WBC RBC Hgb Hct MCV MCH MCHC RDW Std Deviation RDW Coeff of Rabia Plt Count MPV Immature Gran % (Auto) Neut % (Auto) Lymph % (Auto) [place] % (Auto) Eos % (Auto) Baso % (Auto) Absolute Neuts (auto) Absolute Lymphs (auto) Nucleated RBC % Diff Path Review Platelet Estimate PT INR APTT Specimen Type Sample Site pH Bicarbonate Actual Total CO2 Base Excess O2 Saturation O2 % ABG pCO2 ABG pO2 Hector Test Respiration Rate O2 Delivery Device Liter Flow Vent Mode Tidal Volume POC PEEP Sodium Potassium Chloride Carbon Dioxide Anion Gap BUN Creatinine Estim Creat Clear Calc Est GFR (MDRD) Af Amer Est GFR (MDRD) Non-Af BUN/Creatinine Ratio Glucose Hemoglobin A1c Lactic Acid Calcium Magnesium Total Bilirubin AST ALT Alkaline Phosphatase Total Creatine Kinase Total Protein Albumin Globulin Albumin/Globulin Ratio Prealbumin Triglycerides Urine Color Urine Clarity Urine pH Ur Specific [place] Urine Protein Urine Glucose (UA) Urine Ketones Urine Occult Blood Urine Nitrite Urine Bilirubin Urine Urobilinogen Ur Leukocyte Esterase Urine RBC Urine WBC Ur Squamous Epith Cells Amorphous Sediment Urine Bacteria Coarse Granular Casts Urine Mucus Urine Opiates Screen Urine Methadone Screen Ur Barbiturates Screen Ur Phencyclidine Scrn Ur Amphetamines Screen U Methamphetamin-MDMA U Benzodiazepines Scrn Urine Cocaine Screen U Cannabinoids Screen Ur Drug Screen Comment Acetone Level S.aureus Protein A PCR MRSA (PCR) POC Glucose 185 H 160 H 131 H 12/24/20 12/24/20 12/24/20 22:36 23:30 23:31 WBC RBC Hgb Hct MCV MCH MCHC RDW Std Deviation RDW Coeff of Rabia Plt Count MPV Immature Gran % (Auto) Neut % (Auto) Lymph % (Auto) [place] % (Auto) Eos % (Auto) Baso % (Auto) Absolute Neuts (auto) Absolute Lymphs (auto) Nucleated RBC % Diff Path Review Platelet Estimate PT INR APTT Specimen Type Sample Site pH Bicarbonate Actual Total CO2 Base Excess O2 Saturation O2 % ABG pCO2 ABG pO2 Hector Test Respiration Rate O2 Delivery Device Liter Flow Vent Mode Tidal Volume POC PEEP Sodium 144 Potassium 3.5 Chloride 117 H Carbon Dioxide 20.0 L Anion Gap 7 BUN 11 Creatinine 0.85 Estim Creat Clear Calc 134.51 Est GFR (MDRD) Af Amer 148 Est GFR (MDRD) Non-Af 123 BUN/Creatinine Ratio 13.0 Glucose 143 H Hemoglobin A1c Lactic Acid Calcium 8.3 L Magnesium Total Bilirubin AST ALT Alkaline Phosphatase Total Creatine Kinase Total Protein Albumin Globulin Albumin/Globulin Ratio Prealbumin Triglycerides Urine Color Urine Clarity Urine pH Ur Specific [place] Urine Protein Urine Glucose (UA) Urine Ketones Urine Occult Blood Urine Nitrite Urine Bilirubin Urine Urobilinogen Ur Leukocyte Esterase Urine RBC Urine WBC Ur Squamous Epith Cells Amorphous Sediment Urine Bacteria Coarse Granular Casts Urine Mucus Urine Opiates Screen Urine Methadone Screen Ur Barbiturates Screen Ur Phencyclidine Scrn Ur Amphetamines Screen U Methamphetamin-MDMA U Benzodiazepines Scrn Urine Cocaine Screen U Cannabinoids Screen Ur Drug Screen Comment Acetone Level S.aureus Protein A PCR MRSA (PCR) POC Glucose 138 H 142 H 12/24/20 12/25/20 12/25/20 Unknown 02:14 04:04 WBC RBC Hgb Hct MCV MCH MCHC RDW Std Deviation RDW Coeff of Rabia Plt Count MPV Immature Gran % (Auto) Neut % (Auto) Lymph % (Auto) [place] % (Auto) Eos % (Auto) Baso % (Auto) Absolute Neuts (auto) Absolute Lymphs (auto) Nucleated RBC % Diff Path Review Platelet Estimate PT INR APTT Specimen Type Sample Site pH Bicarbonate Actual Total CO2 Base Excess O2 Saturation O2 % ABG pCO2 ABG pO2 Hector Test Respiration Rate O2 Delivery Device Liter Flow Vent Mode Tidal Volume POC PEEP Sodium Potassium Chloride Carbon Dioxide Anion Gap BUN Creatinine Estim Creat Clear Calc Est GFR (MDRD) Af Amer Est GFR (MDRD) Non-Af BUN/Creatinine Ratio Glucose Hemoglobin A1c Lactic Acid Calcium Magnesium Total Bilirubin AST ALT Alkaline Phosphatase Total Creatine Kinase Total Protein Albumin Globulin Albumin/Globulin Ratio Prealbumin Triglycerides Urine Color Urine Clarity Urine pH Ur Specific [place] Urine Protein Urine Glucose (UA) Urine Ketones Urine Occult Blood Urine Nitrite Urine Bilirubin Urine Urobilinogen Ur Leukocyte Esterase Urine RBC Urine WBC Ur Squamous Epith Cells Amorphous Sediment Urine Bacteria Coarse Granular Casts Urine Mucus Urine Opiates Screen Urine Methadone Screen Ur Barbiturates Screen Ur Phencyclidine Scrn Ur Amphetamines Screen U Methamphetamin-MDMA U Benzodiazepines Scrn Urine Cocaine Screen U Cannabinoids Screen Ur Drug Screen Comment Acetone Level S.aureus Protein A PCR Cancelled MRSA (PCR) Cancelled POC Glucose 276 H 263 H 12/25/20 12/25/20 12/25/20 04:05 04:05 04:05 WBC 5.9 RBC 3.64 L Hgb 10.9 L Hct 31.3 L MCV 86.0 D MCH 29.9 MCHC 34.8 RDW Std Deviation 39.5 RDW Coeff of Rabia 12.6 Plt Count 299 MPV 8.8 Immature Gran % (Auto) 0.800 Neut % (Auto) 72.0 H Lymph % (Auto) 14.7 L [place] % (Auto) 8.9 Eos % (Auto) 2.9 Baso % (Auto) 0.7 Absolute Neuts (auto) 4.3 Absolute Lymphs (auto) 0.87 Nucleated RBC % 0 Diff Path Review Platelet Estimate PT INR APTT Specimen Type Sample Site pH Bicarbonate Actual Total CO2 Base Excess O2 Saturation O2 % ABG pCO2 ABG pO2 Hector Test Respiration Rate O2 Delivery Device Liter Flow Vent Mode Tidal Volume POC PEEP Sodium 141 Potassium 3.0 L Chloride 114 H Carbon Dioxide 20.0 L Anion Gap 7 BUN 9 Creatinine 1.01 Estim Creat Clear Calc 113.20 Est GFR (MDRD) Af Amer 121 Est GFR (MDRD) Non-Af 100 BUN/Creatinine Ratio 8.9 L Glucose 271 H Hemoglobin A1c Lactic Acid Calcium 8.4 L Magnesium Total Bilirubin 0.70 AST 12 L ALT 14 L Alkaline Phosphatase 94 Total Creatine Kinase Total Protein 5.8 L Albumin 2.6 L Globulin 3.2 Albumin/Globulin Ratio 0.8 L Prealbumin 9.1 L Triglycerides Urine Color Urine Clarity Urine pH Ur Specific [place] Urine Protein Urine Glucose (UA) Urine Ketones Urine Occult Blood Urine Nitrite Urine Bilirubin Urine Urobilinogen Ur Leukocyte Esterase Urine RBC Urine WBC Ur Squamous Epith Cells Amorphous Sediment Urine Bacteria Coarse Granular Casts Urine Mucus Urine Opiates Screen Urine Methadone Screen Ur Barbiturates Screen Ur Phencyclidine Scrn Ur Amphetamines Screen U Methamphetamin-MDMA U Benzodiazepines Scrn Urine Cocaine Screen U Cannabinoids Screen Ur Drug Screen Comment Acetone Level S.aureus Protein A PCR MRSA (PCR) POC Glucose Microbiology 12/24/20 12:45 Mucosa - Nasopharyngeal SARS-CoV-2 Antigen (Rapid) - Final Clinical Impression(s) from Imaging Studies Chest X-Ray 12/24/20 05:25 IMPRESSION: No acute cardiopulmonary abnormality. at 0615 Reported and signed by: Yael Garner MD Electronically Signed: Yael Garner MD at 6:15 EST Tel , Service support , Femur X-Ray 12/24/20 05:40 IMPRESSION: No acute osseous abnormality. Soft tissue defect in the posterior mid thigh. at 0621 Reported and signed by: Yael Garner MD Electronically Signed: Yael Garner MD at 6:20 EST Tel , Service support , Chest X-Ray 12/24/20 07:09 IMPRESSION: Endotracheal tube and gastric tube in place. at 0727 Reported and signed by: Yael Garner MD Electronically Signed: Yael Garner MD at 7:27 EST Tel , Service support , Medical Necessity - Tobacco Use Smoking Status: Never smoker Assessment/Plan All Active Problems (Last Reviewed 10/27/20 @ 11:[address] 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 Proceed with a trial of extubation this morning. 2. Once extubated, wean supplemental oxygen to maintain saturations at or above 90%. 3. Perform swallow evaluation and advance diet accordingly. 4. Continue empiric antimicrobials and supplemental IV fluids. 5. Potassium repletion. 6. Start basal insulin and continue sliding scale coverage. 7. Encourage incentive spirometer use and mobilize patient as tolerated. IMPRESSIONS: 1. Acute respiratory failure The patient was initially intubated in the emergency department due to encephalopathy and increased work of breathing, which was likely secondary to an attempt to compensate from his significant metabolic derangements. The patient's ventilator requirements are minimal. The patient passed his breathing trial this morning and was subsequently able to be extubated. Recommend continuing to wean supplemental oxygen to maintain saturations at or above 90%. Encourage incentive spirometer use and mobilize patient as tolerated. 2. Diabetic ketoacidosis Resolved. Likely secondary to noncompliance and complicated by diabetic wound. Continuous insulin infusion has been discontinued. Recommend restarting basal insulin per home regimen and continuing sliding scale coverage. 3. Severe sepsis Again, concern for diabetic wound as possible infectious etiology. The patient is currently on appropriate antimicrobials. Supplemental IV fluids are being administered. Continue local wound care. 4. Acute kidney injury/anion gap metabolic acidosis Improved. Likely prerenal in etiology. Continue fluid replacement as ordered. Anticipate slow improvement with volume expansion. Continue to monitor urine output. No current indication for renal replacement therapy. 5. Personal history of asthma/GERD Complicates care, management, recovery and prognosis. Continue home medications as indicated. TIME: 35 minutes of critical care time, independent of procedures, was spent addressing the patient's acute respiratory failure, diabetic ketoacidosis, severe sepsis, acute kidney injury, encephalopathy, review of all data and collaboration with the care team. ([id number]) [id number] Critical care first hour
[2020-12-25 06:20] LABS: Bedside Glucose 229 mg/dL (70-110)
--- NOTE | 2020-12-25 06:46 | PN_ITS ---
Patient Problems: Active and Suspected Problems (Last Reviewed 10/27/20 @ 11:[address] 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 Patient appropriate with SBT this a.m. therefore patient extubated. Patient transition off insulin infusion evening prior secondary to closure of anion gap times greater than 2. Discussed plan with patient and with spanish language lecturer with planned continued subcu insulin regimen, ACHS Accu-Cheks with insulin sliding scale, continue close nutrition consultation for education and teaching, continued broad-spectrum antibiotic therapy pending wound cultures with likely necessity for VAC placement. Per discussion with spanish language lecturer will hold on immediate transition out of the ICU given current status. Patient is amenable to retirement facility placement given concerns about sanitary conditions in his home environment. Patient denies chills, nausea, emesis, abdominal pain, chest pain or dyspnea. Objective: Physical Examination: General: awake, alert, oriented x 3 and cooperative, seated upright in the ICU bed, fatigued, ill-appearing, still tachycardic, low-grade temperature currently. Skin: normal color, turgor, no icterus, cyanosis except noted left leg status po st I&D with significant dressing in place with no drainage, awaiting takedown. HEENT: AT/NC, EOMI, PERRLA, dry MM. Lungs: Diminished breath sounds, greater bases, improved effort, no rales, ronchi or wheezing. Heart: Mildly tachycardic with regular rhythm; no gallop, rub audible. Abdomen: soft, NTTP, ND, normal BS. Extremities: no cyanosis or clubbing, see skin, expected periwound leg mild edema, peripheral pulses intact. Neurological: patient awake, alert, oriented x 3; cognitive function intact; pupils equally reactive to light and accomodation; cranial nerves II-XII grossly normal, moving all 4 extremities although some limitation given recent left lower extremity I&D with discomfort with movement, strength accordingly improving but still moderately to severely globally decreased. Psychiatric: affect appears fatigued, uncomfortable, no acute evidence of depressive or anxiety feelings. Vitals/I&O's: Vital Signs Temp Pulse Resp BP Pulse Ox 102 F H 131 H 18 112/60 98 12/25/20 05:00 12/25/20 06:00 12/25/20 06:00 12/25/20 06:00 12/25/20 06:00 Oxygen Flow Rate (L/min) 15 Oxygen Delivery Method Mechanical Ventilator Weight: 153 lb 14.122 oz Body Mass Index (BMI) 20.0 Finger Stick Blood Glucose 138 Intake and Output for Last 24 Hours 12/23/20 12/24/20 12/25/20 23:59 23:59 23:59 Intake Total 7654.81 / 7668.91 1317.01 / 1317.01 Output Total 4480 / 4540 1160 / 1160 Balance 3174.81 / 3128.91 157.01 / 157.01 Microbiology Past 72 Hours 12/24/20 12:45 Mucosa - Nasopharyngeal SARS-CoV-2 Antigen (Rapid) - Final Laboratory Results 12/24/20 05:35: Diff Path Review Reviewed 12/24/20 05:35: Hemoglobin A1c > 14.0 H 12/24/20 06:37: POC Glucose > 500 H* 12/24/20 06:45: Sodium 132 L, Potassium 4.8, Chloride 104, Carbon Dioxide 4.0 L* , Anion Gap 24 H, BUN 13, Creatinine 1.32 H, Estim Creat Clear Calc 90.15, Est GFR (MDRD) Af Amer 89, Est GFR (MDRD) Non-Af 74, BUN/Creatinine Ratio 9.8 L, Glucose 596 H*, Calcium 7.7 L 12/24/20 08:10: Magnesium 2.1 12/24/20 08:10: Acetone Level LARGE H 12/24/20 08:10: Lactic Acid 2.9 H* 12/24/20 08:10: Sodium 136, Potassium 4.2, Chloride 108 H, Carbon Dioxide 6.0 L* , Anion Gap 22 H, BUN 13, Creatinine 1.34 H, Estim Creat Clear Calc 88.81, Est GFR (MDRD) Af Amer 87, Est GFR (MDRD) Non-Af 72, BUN/Creatinine Ratio 9.7 L, Glucose 482 H*, Calcium 7.7 L 12/24/20 08:12: POC Glucose 466 H* 12/24/20 08:40: Urine Opiates Screen NEGATIVE, Urine Methadone Screen NEGATIVE, Ur Barbiturates Screen NEGATIVE, Ur Phencyclidine Scrn NEGATIVE, Ur Amphetamines Screen NEGATIVE, U Methamphetamin-MDMA NEGATIVE, U Benzodiazepines Scrn NEGATIVE, Urine Cocaine Screen NEGATIVE, U Cannabinoids Screen NEGATIVE, Ur Drug Screen Comment 12/24/20 08:57: POC Glucose 368 H 12/24/20 09:09: Specimen Type ART, Sample Site R Radial, pH 7.01 L*, Bicarbonate Actual 4.9 L, Total CO2 6, Base Excess -26 L, O2 Saturation 96, O2 % 21, ABG pCO2 19.4 L, ABG pO2 117 H, Respiration Rate 12, Vent Mode AC, Tidal Volume 450, POC PEEP 5 12/24/20 09:53: POC Glucose 332 H 12/24/20 11:00: Sodium 141, Potassium 3.7, Chloride 114 H, Carbon Dioxide 12.0 L , Anion Gap 15, BUN 12, Creatinine 1.09, Estim Creat Clear Calc 104.89, Est GFR (MDRD) Af Amer 111, Est GFR (MDRD) Non-Af 92, BUN/Creatinine Ratio 11.0, Glucose 274 H, Calcium 7.9 L 12/24/20 11:00: Total Creatine Kinase 95, Triglycerides 492 H 12/24/20 11:02: POC Glucose 250 H 12/24/20 11:15: S.aureus Protein A PCR Cancelled, MRSA (PCR) Cancelled 12/24/20 12:20: POC Glucose 230 H 12/24/20 12:58: POC Glucose 205 H 12/24/20 13:56: POC Glucose 222 H 12/24/20 15:29: POC Glucose 205 H 12/24/20 15:40: Sodium 142, Potassium 3.2 L, Chloride 116 H, Carbon Dioxide 16.0 L, Anion Gap 10, BUN 11, Creatinine 1.10, Estim Creat Clear Calc 103.94, Est GFR (MDRD) Af Amer 110, Est GFR (MDRD) Non-Af 91, BUN/Creatinine Ratio 10.0, Glucose 220 H, Calcium 8.3 L 12/24/20 16:39: POC Glucose 216 H 12/24/20 17:37: POC Glucose 219 H 12/24/20 18:34: POC Glucose 191 H 12/24/20 18:55: Sodium 143, Potassium 3.1 L, Chloride 117 H, Carbon Dioxide 19.0 L, Anion Gap 7, BUN 11, Creatinine 1.08, Estim Creat Clear Calc 105.86, Est GFR (MDRD) Af Amer 112, Est GFR (MDRD) Non-Af 93, BUN/Creatinine Ratio 10.2, Glucose 197 H, Calcium 8.3 L 12/24/20 19:40: POC Glucose 185 H 12/24/20 20:40: POC Glucose 160 H 12/24/20 21:39: POC Glucose 131 H 12/24/20 22:36: POC Glucose 138 H 12/24/20 23:30: Sodium 144, Potassium 3.5, Chloride 117 H, Carbon Dioxide 20.0 L , Anion Gap 7, BUN 11, Creatinine 0.85, Estim Creat Clear Calc 134.51, Est GFR (MDRD) Af Amer 148, Est GFR (MDRD) Non-Af 123, BUN/Creatinine Ratio 13.0, Glucose 143 H, Calcium 8.3 L 12/24/20 23:31: POC Glucose 142 H 12/24/20 : S.aureus Protein A PCR Cancelled, MRSA (PCR) Cancelled 12/25/20 02:14: POC Glucose 276 H 12/25/20 04:04: POC Glucose 263 H 12/25/20 04:05: WBC 5.9, RBC 3.64 L, Hgb 10.9 L, Hct 31.3 L, MCV 86.0 D, MCH 29.9, MCHC 34.8, RDW Std Deviation 39.5, RDW Coeff of Rabia 12.6, Plt Count 299, MPV 8.8, Immature Gran % (Auto) 0.800, Neut % (Auto) 72.0 H, Lymph % (Auto) 14.7 L, [place] % (Auto) 8.9, Eos % (Auto) 2.9, Baso % (Auto) 0.7, Absolute Neuts (auto) 4.3, Absolute Lymphs (auto) 0.87, Nucleated RBC % 0 12/25/20 04:05: Sodium 141, Potassium 3.0 L, Chloride 114 H, Carbon Dioxide 20.0 L, Anion Gap 7, BUN 9, Creatinine 1.01, Estim Creat Clear Calc 113.20, Est GFR (MDRD) Af Amer 121, Est GFR (MDRD) Non-Af 100, BUN/Creatinine Ratio 8.9 L, Glucose 271 H, Calcium 8.4 L, Total Bilirubin 0.70, AST 12 L, ALT 14 L, Alkaline Phosphatase 94, Total Protein 5.8 L, Albumin 2.6 L, Globulin 3.2, Albumin/[place] bulin Ratio 0.8 L 12/25/20 04:05: Prealbumin 9.1 L 12/25/20 05:34: POC Glucose 229 H Current Medications Acetaminophen (Acetaminophen 650 Mg/20 Ml Udc) 650 mg GT Q6H PRN PRN PRN Reason: Pain Score 1-3 /Temp>100.7 Last Admin: 12/25/20 06:10 Dose: 650 mg Documented by: Al Hydroxide/Mg Hydroxide (Mag Hydrox/Al Hydrox/Simeth 30 Ml Udc) 30 ml GT Q6H PRN PRN PRN Reason: Gastric Burning Albuterol Sulfate (Albuterol 2.5 Mg/3 Ml Vial.Neb.) 2.5 mg INHALATION Q2H PRN PRN PRN Reason: Dyspnea, wheezing Bisacodyl (Bisacodyl 5 Mg Tablet) 10 mg PO DAILY PRN PRN PRN Reason: Constipation Chlorhexidine Gluconate (Chlorhexidine Gluc 2% Cloth 1 Each Towelette) 1 each TOPICAL DAILY [facility] Chlorhexidine Gluconate (Chlorhexidine 15 Ml) 15 ml PO BID [facility] Last Admin: 12/24/20 21:16 Dose: 15 ml Documented by: Dextrose (Dextrose 50%-Water 25 Gm/50 Ml Disp.Syrin) 0 gm IV X1 PRN; Protocol PRN Reason: HYPOGLYCEMIA Docusate Sodium (Docusate Sodium 100 Mg/10 Ml Udc) 200 mg GT BID PRN PRN PRN Reason: Constipation Enoxaparin Sodium (Enoxaparin 40 Mg/0.4 Ml Syringe) 40 mg SC DAILY [facility] Last Admin: 12/24/20 11:20 Dose: 40 mg Documented by: Famotidine (Famotidine 20 Mg Tablet) 20 mg GT BID [facility] Last Admin: 12/24/20 21:15 Dose: 20 mg Documented by: Hydralazine HCl (Hydralazine 20 Mg/Ml Vial) 10 mg IV Q4H PRN PRN PRN Reason: SBP > 160 Fentanyl Citrate 1,000 mcg/ (Sodium Chloride) 100 mls @ 5 mls/hr CONT INF .Q20H [facility]; Protocol Last Titration: 12/25/20 06:15 Dose: 0 mcg/hr, 0 mls/hr Documented by: Propofol (Diprivan) 1,000 mg in 100 mls @ 4.116 mls/hr CONT INF .Q12H [facility]; Protocol Last Titration: 12/25/20 06:15 Dose: 0 mcg/kg/min, 0 mls/hr Documented by: Piperacillin Sod/Tazobactam (Sod 3.375 gm/ Sodium Chloride) 50 mls @ 12.5 mls/ hr IV Q8 [facility] Last Admin: 12/25/20 05:29 Dose: 12.5 mls/hr Documented by: Vancomycin IV Pharmacy to Dose (1 ea/ Sodium Chloride) 500 mls @ 250 mls/hr IV PRN PRN; Protocol PRN Reason: Rx to Dose Vancomycin HCl 1,500 mg/ (Sodium Chloride) 530 mls @ 250 mls/hr IV Q12H [facility] Last Admin: 12/25/20 06:40 Dose: 250 mls/hr Documented by: Sodium Chloride () 250 mls @ 15 mls/hr IV .[id number] PRN PRN Reason: Saline Flush Sodium Chloride () 250 mls @ 15 mls/hr IV .[id number] PRN PRN Reason: Additional IVPB Infusion Lactated Ringer's () 1,000 mls @ 150 mls/hr IV .Q6H40M [facility] Last Admin: 12/25/20 04:20 Dose: 150 mls/hr Documented by: Potassium Chloride () 10 meq in 100 mls @ 100 mls/hr IV BOLUS Q1H [facility] Stop: 12/25/20 10:14 Last Admin: 12/25/20 06:11 Dose: 100 mls/hr Documented by: Insulin Human Lispro (Insulin Lispro 100 Unit/Ml Insuln.Pen) 0 unit SC Q4 [facility]; Protocol Last Admin: 12/25/20 05:36 Dose: 4 u Documented by: Ondansetron HCl (Ondansetron 4 Mg/2 Ml Vial) 4 mg IV Q8H PRN PRN PRN Reason: Nausea Polyethylene Glycol (Polyethylene Glycol 3350 17 Gm Packet) 17 gm GT DAILY [facility]ILLY Prochlorperazine Edisylate (Prochlorperazine 10 Mg/2 Ml Vial) 10 mg IV Q6H PRN PRN PRN Reason: Nausea/Vomiting Sodium Chloride (0.9% Saline Lock 10 Ml Syringe) 10 - 40 ml IV UD PRN PRN Reason: SALINE FLUSH Last Admin: 12/24/20 18:59 Dose: 30 ml Documented by: STROKE Vital Signs/Narrative: Vital Signs Temp Pulse Resp BP Pulse Ox 12/25/20 06:00 131 H 18 112/60 98 12/25/20 05:15 133 H 11 L 98 12/25/20 05:00 102 F H 129 H 17 102/50 L 97 12/25/20 04:00 102.1 F H 125 H 14 91/44 L 98 12/25/20 03:30 121 H 12/25/20 03:00 122 H 17 101/42 L 97 Medical Necessity - Tobacco Use Smoking Status: Never smoker Assessment/Plan All Active Problems (Last Reviewed 10/27/20 @ 11:[address] 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 1. Acute Hypoxic Respiratory Failure, Multifactorial, secondary to Acute Severe Sepsis secondary to Acute left thigh infected wound and #2 Uncontrolled diabetes mellitus type I in the setting of DKA: ED work-up included evidence of hypoth ermia, tachycardia, tachypnea, CBC with WC 25 with platelet count 799 with left shift evident, VBG with pH 6.75 with PCO2 16 and PO2 157, CMP with sodium 132, bicarb 4 and creatinine 1.32, lactic acid 3.7, serum acetone large, chest x-ray with no acute cardiopulmonary findings, glucose 596, hemoglobin A1c greater than 14, SARS rapid Covid antigen negative, urinalysis with specific gravity 1.020, g lucose 1000, ketones 150 otherwise no obvious evidence of UTI, UDS unremarkable, in ED patient was aggressively hydrated, administered bicarb and broad-spectrum antibiotic therapy given concern for sepsis as presentation etiology and eventually intubated secondary to concerns for airway. Of note 12/10/2020 most recent surgical culture with MS-CoNS, klebs, enterobacter, MRSE, and anaerobes. Patient admitted to the ICU, maintained on propofol and fentanyl, intubated, continued on Zosyn therapy as well as vancomycin addition to x1 dose clindamycin in the ED. OR 12/24/2020 for infected left thigh wound which had significantly worsened with noted significant necrotic tissue, muscle and purulent material with wound OR culture and MRSA wound pending. Patient extubated 12/25/2020 AM successfully, still tachycardic, febrile, discussed with spanish language lecturer and will remain in the ICU with close observation, transition out once improved, administered additional IV fluid bolus, AG close therefore initiated on subcu insulin with discontinuation of insulin drip, start AC at bedtime Accu-Cheks, initiate diet. Dressing changes per Dr. Landin with expected wound VAC placement with wound RN consultation ongoing. 2. DKA w/ Diabetes mellitus type I: Admitted on insulin drip given DKA presentation likely secondary to #1, A1c greater than 14%, noncompliant history, transitioned successfully off insulin drip 12/24/2020 evening, transition to subcu insulin, dosing now as well as this evening, transition to ACH Accu-Cheks with insulin sliding scale, encourage appropriate ADA diet with education and teaching. Patient amenable to consideration retirement facility for discharge given #1 which would be beneficial also to achieve improved blood sugar control. 3. Acute kidney injury: Secondary to acute presentation as noted #1, #2. Admission BUN/Cr 131.53, prior baseline creatinine noted to be 0.8-1.0 primarily. Patient aggressively hydrated especially given #1 presentation and #2, 12/25/2020 BUN/creatinine 9/1.10, resolved. 4. Acute encephalopathy, multifactorial: Secondary to #1, #2, #3, continue treatments as noted above, improving, extubated 12/25/2019 1 AM. 5. GERD: We will add oral famotidine. 6. History of asthma: Noted history previously per patient, currently intubated, sedated, outpatient on scheduled Flovent and as needed albuterol, will continue as needed albuterol nebulizer treatments. 7. DVT prophylaxis: Erin Landry Inpatient E&M: [id number] [facility] Hosp L3
--- NOTE | 2020-12-25 06:54 | NURSING ---
0625- Respiratory and RN at bedside preparing to extubate patient. Patient is calm and following commands. Patient was extubated successfully to RA and tolerated well. Fentanyl, propofol, and restraints D/C'd.
[2020-12-25] MEDS: 0.9% Normal Saline 1,000 ML 150 ML IV (08:22)
[2020-12-25] MEDS: oxyCODONE 5 MG Tablet PO ×3 (08:53→20:01)
[2020-12-25 09:05] LABS: Bedside Glucose 197 mg/dL (70-110)
[2020-12-25] MEDS: Famotidine 20 MG Tablet PO ×2 (12:23→21:58)
[2020-12-25] MEDS: Enoxaparin 40 MG/0.4 ML Syringe SC (12:24)
[2020-12-25] MEDS: Glucerna Shake 120 ML LIQUID PO (14:51)
[2020-12-25 14:55] LABS: Bedside Glucose 348 mg/dL (70-110)
[2020-12-25 17:05] LABS: Bedside Glucose 455 mg/dL (70-110)
--- NOTE | 2020-12-25 18:11 | NURSING ---
Pt kept NPO until BMP results come back.
[2020-12-25] MEDS: Insulin Lispro 100 UNIT/ML INSULN.PEN 20 UNIT SC (18:13)
[2020-12-25 18:18] LABS: Anion Gap 7 (5-15); BUN 11 mg/dL (7-18); BUN/Creat Ratio 14.3 RATIO (10-20); Calcium,Total 8.5 mg/dL (8.5-10.1); Chloride 102 mmol/L (98-107); Creatinine, Serum 0.77 mg/dL (0.70-1.30); EST Glomerular Filtration Rate 137 mL/min (>60); Est Glom Filt Rate - Afr Amer 166 mL/min (>60); Estimated Creatinine Clearance 151.08 ml/min; Glucose 423 mg/dL (74-106); Potassium 3.3 mmol/L (3.5-5.1); Sodium Level 131 mmol/L (136-145)
[2020-12-25 18:21] LABS: Vancomycin, Trough Level 8.4 ug/mL (5.0-15.0)
[2020-12-25 19:17] LABS: Bedside Glucose 370 mg/dL (70-110)
[2020-12-25] MEDS: Insulin Lispro 100 UNIT/ML INSULN.PEN 15 UNIT SC (19:40)
--- NOTE | 2020-12-25 20:26 | PCM.RX.CS ---
Consult Pharmacy has been consulted to manage selected antiobiotic: Vancomycin Type of Consult: Follow-up Suspected Infection: Sepsis Labs: Sodium 131 mmol/L (136-145) L 12/25/20 17:30 Potassium 3.3 mmol/L (3.5-5.1) L 12/25/20 17:30 Chloride 102 mmol/L (98-107) 12/25/20 17:30 Carbon Dioxide 22.0 mmol/L (21.0-32.0) 12/25/20 17:30 Anion Gap 7 (5-15) 12/25/20 17:30 BUN 11 mg/dL (7-18) 12/25/20 17:30 Creatinine 0.77 mg/dL (0.70-1.30) 12/25/20 17:30 Est GFR (MDRD) Af Amer 166 mL/min (>60) 12/25/20 17:30 Est GFR (MDRD) Non-Af 137 mL/min (>60) 12/25/20 17:30 BUN/Creatinine Ratio 14.3 RATIO (10-20) 12/25/20 17:30 Glucose 423 mg/dL (74-106) H 12/25/20 17:30 Vancomycin Trough 8.4 ug/mL (5.0-15.0) 12/25/20 17:30 Microbiology: Microbiology 12/24/20 Unknown Wound Abcess - Leg, Left Gram Stain - Final 12/24/20 Unknown Wound Abcess - Leg, Left Wound Culture - Preliminary Possible Fungus 12/24/20 11:15 Wound - Leg, Left Gram Stain - Final 12/24/20 11:15 Wound - Leg, Left Wound Culture - Preliminary No growth-Final to follow 12/24/20 05:45 Urine Catheter - Catheter Urine Culture - Preliminary Culture exhibits no growth. 12/24/20 12:45 Mucosa - Nasopharyngeal SARS-CoV-2 Antigen (Rapid) - Final Goal Trough: 15-20 mcg/mL Pharmacy Plan for Drug Dosing: Pharmacy Service will continue to monitor and adjust dosing as required. TROUGH 8.4 AND SCr DECREASED TO 0.77. CHANGES TO 1GM EVERY 8 HOURS AND REDRAW TROUGH 12/27 @ 0230 Follow-Up Labs: Trough Vancomycin Labs to be done on [date and time ordered]: 12/27 @ 0130
--- NOTE | 2020-12-25 20:47 | PCM.PN.SRG ---
Patient Problems: Active and Suspected Problems (Last Reviewed 10/27/20 @ 11:[address] 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 Has been extubated today. - Physical Exam Vitals/I&O's: Vital Signs Temp Pulse Resp BP Pulse Ox 98.5 F 131 H 21 H 116/66 99 12/25/20 20:00 12/25/20 20:03 12/25/20 20:00 12/25/20 20:00 12/25/20 20:00 Oxygen Flow Rate (L/min) 15 Oxygen Delivery Method Room Air Weight: 153 lb 14.122 oz Body Mass Index (BMI) 20.0 Finger Stick Blood Glucose 138 Intake and Output for Last 24 Hours 12/23/20 12/24/20 12/25/20 23:59 23:59 23:59 Intake Total 7654.81 / 7668.91 6962.84 / 6962.84 Output Total 4480 / 4540 6660 / 6660 Balance 3174.81 / 3128.91 302.84 / 302.84 General: Alert, Oriented x3 HEENT: PERRLA, EOMI Oral: Moist Mucosa Neck: Supple Abdomen: Soft, Non-Distended Skin: Ulcer/ Wound - left posterior thigh ulcer stable. No active bleeding noted. If VAC is available it will be placed today. Otherwise will proceed with daily Betadine dressings. Neurological: Cranial nerves II-XII grossly intact Psych/Mental Status: Normal Affect, Appropriate Microbiology Past 72 Hours 12/24/20 Unknown Wound Abcess - Leg, Left Gram Stain - Final 12/24/20 Unknown Wound Abcess - Leg, Left Wound Culture - Preliminary Possible Fungus 12/24/20 11:15 Wound - Leg, Left Gram Stain - Final 12/24/20 11:15 Wound - Leg, Left Wound Culture - Preliminary No growth-Final to follow 12/24/20 05:45 Urine Catheter - Catheter Urine Culture - Preliminary Culture exhibits no growth. 12/24/20 12:45 Mucosa - Nasopharyngeal SARS-CoV-2 Antigen (Rapid) - Final Laboratory Results 12/24/20 19:40: POC Glucose 185 H 12/24/20 20:40: POC Glucose 160 H 12/24/20 21:39: POC Glucose 131 H 12/24/20 22:36: POC Glucose 138 H 12/24/20 23:30: Sodium 144, Potassium 3.5, Chloride 117 H, Carbon Dioxide 20.0 L, Anion Gap 7, BUN 11, Creatinine 0.85, Estim Creat Clear Calc 134.51, Est GFR (MDRD) Af Amer 148, Est GFR (MDRD) Non-Af 123, BUN/Creatinine Ratio 13.0, Glucose 143 H, Calcium 8.3 L 12/24/20 23:31: POC Glucose 142 H 12/25/20 02:14: POC Glucose 276 H 12/25/20 04:04: POC Glucose 263 H 12/25/20 04:05: WBC 5.9, RBC 3.64 L, Hgb 10.9 L, Hct 31.3 L, MCV 86.0 D, MCH 29.9, MCHC 34.8, RDW Std Deviation 39.5, RDW Coeff of Rabia 12.6, Plt Count 299, MPV 8.8, Immature Gran % (Auto) 0.800, Neut % (Auto) 72.0 H, Lymph % (Auto) 14.7 L, Randall % (Auto) 8.9, Eos % (Auto) 2.9, Baso % (Auto) 0.7, Absolute Neuts (auto) 4.3, Absolute Lymphs (auto) 0.87, Nucleated RBC % 0 12/25/20 04:05: Sodium 141, Potassium 3.0 L, Chloride 114 H, Carbon Dioxide 20.0 L, Anion Gap 7, BUN 9, Creatinine 1.01, Estim Creat Clear Calc 113.20, Est GFR (MDRD) Af Amer 121, Est GFR (MDRD) Non-Af 100, BUN/Creatinine Ratio 8.9 L, Glucose 271 H, Calcium 8.4 L, Total Bilirubin 0.70, AST 12 L, ALT 14 L, Alkaline Phosphatase 94, Total Protein 5.8 L, Albumin 2.6 L, Globulin 3.2, Albumin/Globulin Ratio 0.8 L 12/25/20 04:05: Prealbumin 9.1 L 12/25/20 05:34: POC Glucose 229 H 12/25/20 08:49: POC Glucose 197 H 12/25/20 12:21: POC Glucose 348 H 12/25/20 16:58: POC Glucose 455 H* 12/25/20 17:30: Sodium 131 L, Potassium 3.3 L, Chloride 102, Carbon Dioxide 22.0, Anion Gap 7, BUN 11, Creatinine 0.77, Estim Creat Clear Calc 151.08, Est GFR (MDRD) Af Amer 166, Est GFR (MDRD) Non-Af 137, BUN/Creatinine Ratio 14.3, Glucose 423 H, Calcium 8.5 12/25/20 17:30: Vancomycin Trough 8.4 12/25/20 19:11: POC Glucose 370 H Current Medications Acetaminophen (Acetaminophen 650 Mg/20 Ml Udc) 650 mg PO Q6H PRN PRN PRN Reason: Pain Score 1-3 /Temp>100.7 Al Hydroxide/Mg Hydroxide (Mag Hydrox/Al Hydrox/Simeth 30 Ml Udc) 30 ml PO Q6H PRN PRN PRN Reason: Gastric Burning Albuterol Sulfate (Albuterol 2.5 Mg/3 Ml Vial.Neb.) 2.5 mg INHALATION Q2H PRN PRN PRN Reason: Dyspnea, wheezing Bisacodyl (Bisacodyl 5 Mg Tablet) 10 mg PO DAILY PRN PRN PRN Reason: Constipation Chlorhexidine Gluconate (Chlorhexidine Gluc 2% Cloth 1 Each Towelette) 1 each TOPICAL DAILY [facility] Last Admin: 12/25/20 12:46 Dose: Not Given Documented by: Dextrose (Dextrose 50%-Water 25 Gm/50 Ml Disp.Syrin) 0 gm IV X1 PRN; Protocol PRN Reason: HYPOGLYCEMIA Dextrose (Dextrose 50%-Water 25 Gm/50 Ml Disp.Syrin) 0 gm IV X1 PRN; Protocol PRN Reason: Hypoglycemia Docusate Sodium (Docusate Sodium 100 Mg Capsule) 200 mg PO BID PRN PRN PRN Reason: Constipation Enoxaparin Sodium (Enoxaparin 40 Mg/0.4 Ml Syringe) 40 mg SC DAILY [facility] Last Admin: 12/25/20 12:24 Dose: 40 mg Documented by: Famotidine (Famotidine 20 Mg Tablet) 20 mg PO BID [facility] Last Admin: 12/25/20 12:23 Dose: 20 mg Documented by: Glucagon (Glucagon 1 Mg/Ml Syringe) 1 mg IM .X1 PRN PRN Reason: Hypoglycemia Hydralazine HCl (Hydralazine 20 Mg/Ml Vial) 10 mg IV Q4H PRN PRN PRN Reason: SBP > 160 Piperacillin Sod/Tazobactam (Sod 3.375 gm/ Sodium Chloride) 50 mls @ 12.5 mls/hr IV Q8 [facility] Last Infusion: 12/25/20 18:49 Dose: Infused Documented by: Vancomycin IV Pharmacy to Dose (1 ea/ Sodium Chloride) 500 mls @ 250 mls/hr IV PRN PRN; Protocol PRN Reason: Rx to Dose Vancomycin HCl 1,500 mg/ (Sodium Chloride) 530 mls @ 250 mls/hr IV Q12H [facility] Last Admin: 12/25/20 18:18 Dose: 250 mls/hr Documented by: Sodium Chloride () 250 mls @ 15 mls/hr IV .[id number] PRN PRN Reason: Saline Flush Sodium Chloride () 250 mls @ 15 mls/hr IV .[id number] PRN PRN Reason: Additional IVPB Infusion Vancomycin HCl (Vancomycin) 1,000 mg in 200 mls @ 200 mls/hr IV Q8H [facility] Insulin Glargine (Insulin Glargine 100 Units/Ml Pen) 35 units SC QHS [facility] Insulin Human Lispro (Insulin Lispro 100 Unit/Ml Insuln.Pen) 0 unit SC ACHS [facility]; Protocol Last Admin: 12/25/20 17:23 Dose: Not Given Documented by: Insulin Human Lispro (Insulin Lispro 100 Unit/Ml Insuln.Pen) 5 unit SC TIDAC [facility] Morphine Sulfate (Morphine 2 Mg/Ml Syringe) 2 - 4 mg IV Q4H PRN PRN PRN Reason: Pain Score 6-10 Morphine Sulfate (Morphine 4 Mg/Ml Syringe) 2 - 4 mg IV Q4H PRN PRN PRN Reason: Pain Score 6-10 Nutritional Formula (Lactose Free) (Glucerna Shake 120 Ml Liquid) 120 ml PO 4X/DAY [facility] Last Admin: 12/25/20 17:09 Dose: Not Given Documented by: Ondansetron HCl (Ondansetron 4 Mg/2 Ml Vial) 4 mg IV Q8H PRN PRN PRN Reason: Nausea Oxycodone HCl (Oxycodone 5 Mg Tablet) 5 mg PO Q4H PRN PRN PRN Reason: Pain Score 6-10 Last Admin: 12/25/20 20:01 Dose: 5 mg Documented by: Polyethylene Glycol (Polyethylene Glycol 3350 17 Gm Packet) 17 gm PO DAILY LILLY Prochlorperazine Edisylate (Prochlorperazine 10 Mg/2 Ml Vial) 10 mg IV Q6H PRN PRN PRN Reason: Nausea/Vomiting Sodium Chloride (0.9% Saline Lock 10 Ml Syringe) 10 - 40 ml IV UD PRN PRN Reason: SALINE FLUSH Last Admin: 12/24/20 18:59 Dose: 30 ml Documented by: Medical Necessity - Tobacco Use Smoking Status: Never smoker Assessment/Plan All Active Problems (Last Reviewed 10/27/20 @ 11:[address] 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 Nonhealing infected necrotic diabetic ulcer with abscess left posterior thigh including necrotic muscle. 2. Diabetic ketoacidosis associated with Type I Diabetes mellitus. 3. Sepsis. 4. Type I Diabetes mellitus, uncontrolled. 5. HgbA1c >14. 6. s/p surgical preparation left posterior thigh with incision and drainage and excisional debridement nonhealing infected necrotic diabetic ulcer with abscess including necrotic muscle (276 cm2). Continue Vancomycin and Zosyn. Operative cultures show possible fungus. Cultures from last debridement on 12/10/20 showed Enterobacter cloacae, Klebsiella pneumoniae, Staphylococcus haemolyticus, and Anaerobic cocci. Left posterior thigh ulcer is stable. No active bleeding. To have VAC applied. Until it is available, continue daily Betadine dressing changes. Anticipate increased metabolic demands from the infection and from the ulcer. Prealbumin is 9.1 Encourage nutritional supplementation with protein after he is extubated. After discharge, can [facility]up [facility]. If there is a plateau in the healing process, can proceed with delayed closure with skin grafting. However, before a skin graft can be done, the HgbA1c has to be less than 8. At present it is >14.
[2020-12-26] VITALS (17 sets, daily range): BP systolic 105–130; BP diastolic 61–78; PULSE 97–122; RESP 10–18; TEMP 36.7–37.3; O2SAT 98–100
[2020-12-26 01:21] LABS: Bedside Glucose 209 mg/dL (70-110)
[2020-12-26] MEDS: Vancomycin IV 1,000 MG/200 ML BAG 200 MG IV ×2 (02:03→11:31)
--- NOTE | 2020-12-26 05:45 | PCM.PN.INT ---
Subjective: The patient was seen and examined at the bedside this morning. Events from the last 24 hours have been reviewed. The patient is currently afebrile, hemodynamically stable and maintaining appropriate oxygen saturations on room air. The patient denies any shortness of breath or cough. Objective: The patient's most recent lab work, culture data and imaging studies have all been personally reviewed. Wound, blood and urine cultures are pending. Rapid coronavirus antigen testing was negative. General: Alert, Cooperative, No apparent distress HEENT: Atraumatic, PERRLA, Normocephalic Oral: No Gingival or Mucosal Lesions/ Ulcerations Neck: Supple, No Nodes, Trachea Midline Lungs: Normal air movement, No rhonchi, No wheeze, No rales Cardiovascular: Normal S1, Normal S2, No murmurs, Tachycardic Abdomen: Bowel Sounds Present, Soft, Non Tender Extremities: No clubbing, No cyanosis, No edema - Lower extremity wound unchanged from previous Musculoskeletal: No Tenderness to Palpation of Joints or Extremities Lymphatic: No Cervical, Supraclavicular, or Inguinal Adenopathy Neurological: Cranial nerves II-XII grossly intact, Neuro grossly intact Psych/Mental Status: Normal Affect, Appropriate Vital Signs Temp Pulse Resp BP Pulse Ox 98.1 F 97 15 121/76 H 99 12/26/20 04:00 12/26/20 04:27 12/26/20 04:00 12/26/20 04:00 12/26/20 04:00 Oxygen Flow Rate (L/min) 15 Oxygen Delivery Method Room Air Weight: 158 lb 1.143 oz Body Mass Index (BMI) 20.0 Finger Stick Blood Glucose 138 Intake and Output for Last 24 Hours 12/24/20 12/25/20 12/26/20 23:59 23:59 23:59 Intake Total 7654.81 / 7668.91 8142.84 / 8142.84 250 / 250 Output Total 4480 / 4540 7730 / 7730 1150 / 1150 Balance 3174.81 / 3128.91 412.84 / 412.84 -900 / -900 Labs (Last 48 Hours) 12/24/20 12/24/20 12/24/20 05:32 05:35 05:35 WBC RBC Hgb Hct MCV MCH MCHC RDW Std Deviation RDW Coeff of Rabia Plt Count MPV Immature Gran % (Auto) Neut % (Auto) Lymph % (Auto) Pratt % (Auto) Eos % (Auto) Baso % (Auto) Absolute Neuts (auto) Absolute Lymphs (auto) Nucleated RBC % Diff Path Review Reviewed Platelet Estimate MKD INC PT 15.5 H INR 1.3 APTT 30.6 Specimen Type Sample Site pH Bicarbonate Actual Total CO2 Base Excess O2 Saturation O2 % ABG pCO2 ABG pO2 Hector Test Respiration Rate O2 Delivery Device Liter Flow Vent Mode Tidal Volume POC PEEP Sodium Potassium Chloride Carbon Dioxide Anion Gap BUN Creatinine Estim Creat Clear Calc Est GFR (MDRD) Af Amer Est GFR (MDRD) Non-Af BUN/Creatinine Ratio Glucose Hemoglobin A1c Lactic Acid Calcium Magnesium Total Bilirubin AST ALT Alkaline Phosphatase Total Creatine Kinase Total Protein Albumin Globulin Albumin/Globulin Ratio Prealbumin Triglycerides Urine Color Urine Clarity Urine pH Ur Specific [place] Urine Protein Urine Glucose (UA) Urine Ketones Urine Occult Blood Urine Nitrite Urine Bilirubin Urine Urobilinogen Ur Leukocyte Esterase Urine RBC Urine WBC Ur Squamous Epith Cells Amorphous Sediment Urine Bacteria Coarse Granular Casts Urine Mucus Vancomycin Trough Urine Opiates Screen Urine Methadone Screen Ur Barbiturates Screen Ur Phencyclidine Scrn Ur Amphetamines Screen U Methamphetamin-MDMA U Benzodiazepines Scrn Urine Cocaine Screen U Cannabinoids Screen Ur Drug Screen Comment Acetone Level S.aureus Protein A PCR MRSA (PCR) POC Glucose > 500 H* 12/24/20 12/24/20 12/24/20 05:35 05:35 05:35 WBC RBC Hgb Hct MCV MCH MCHC RDW Std Deviation RDW Coeff of Rabia Plt Count MPV Immature Gran % (Auto) Neut % (Auto) Lymph % (Auto) Pratt % (Auto) Eos % (Auto) Baso % (Auto) Absolute Neuts (auto) Absolute Lymphs (auto) Nucleated RBC % Diff Path Review Platelet Estimate PT INR APTT Specimen Type Sample Site pH Bicarbonate Actual Total CO2 Base Excess O2 Saturation O2 % ABG pCO2 ABG pO2 Hector Test Respiration Rate O2 Delivery Device Liter Flow Vent Mode Tidal Volume POC PEEP Sodium 126 L Potassium 4.4 Chloride 96 L Carbon Dioxide 6.0 L* Anion Gap 24 H BUN 13 Creatinine 1.53 H Estim Creat Clear Calc 77.78 Est GFR (MDRD) Af Amer 75 Est GFR (MDRD) Non-Af 62 BUN/Creatinine Ratio 8.5 L Glucose 701 H* Hemoglobin A1c Lactic Acid 3.7 H* Calcium 8.8 Magnesium 2.6 Total Bilirubin 0.70 AST 14 L ALT 21 Alkaline Phosphatase 210 H Total Creatine Kinase Total Protein 9.4 H Albumin 4.6 Globulin 4.8 H Albumin/Globulin Ratio 1.0 Prealbumin Triglycerides Urine Color Urine Clarity Urine pH Ur Specific [place] Urine Protein Urine Glucose (UA) Urine Ketones Urine Occult Blood Urine Nitrite Urine Bilirubin Urine Urobilinogen Ur Leukocyte Esterase Urine RBC Urine WBC Ur Squamous Epith Cells Amorphous Sediment Urine Bacteria Coarse Granular Casts Urine Mucus Vancomycin Trough Urine Opiates Screen Urine Methadone Screen Ur Barbiturates Screen Ur Phencyclidine Scrn Ur Amphetamines Screen U Methamphetamin-MDMA U Benzodiazepines Scrn Urine Cocaine Screen U Cannabinoids Screen Ur Drug Screen Comment Acetone Level LARGE H S.aureus Protein A PCR MRSA (PCR) POC Glucose 12/24/20 12/24/20 12/24/20 05:35 05:45 05:53 WBC RBC Hgb Hct MCV MCH MCHC RDW Std Deviation RDW Coeff of Rabia Plt Count MPV Immature Gran % (Auto) Neut % (Auto) Lymph % (Auto) Pratt % (Auto) Eos % (Auto) Baso % (Auto) Absolute Neuts (auto) Absolute Lymphs (auto) Nucleated RBC % Diff Path Review Platelet Estimate PT INR APTT Specimen Type ART Sample Site R Fem pH 6.75 L* Bicarbonate Actual 2.3 L Total CO2 < 5 Base Excess < -30 L O2 Saturation 96 O2 % ABG pCO2 16.4 L* ABG pO2 157 H Hector Test Positive Respiration Rate O2 Delivery Device NRB Liter Flow 15.0 Vent Mode Tidal Volume POC PEEP Sodium Potassium Chloride Carbon Dioxide Anion Gap BUN Creatinine Estim Creat Clear Calc Est GFR (MDRD) Af Amer Est GFR (MDRD) Non-Af BUN/Creatinine Ratio Glucose Hemoglobin A1c > 14.0 H Lactic Acid Calcium Magnesium Total Bilirubin AST ALT Alkaline Phosphatase Total Creatine Kinase Total Protein Albumin Globulin Albumin/Globulin Ratio Prealbumin Triglycerides Urine Color Yellow Urine Clarity Clear Urine pH 5.0 Ur Specific [place] 1.020 Urine Protein 100 H Urine Glucose (UA) 1000 H Urine Ketones 150 H Urine Occult Blood 25 H Urine Nitrite Negative Urine Bilirubin Negative Urine Urobilinogen Normal Ur Leukocyte Esterase Negative Urine RBC 0 SEEN Urine WBC 0 SEEN Ur Squamous Epith Cells 0 SEEN Amorphous Sediment 3+ Urine Bacteria RARE Coarse Granular Casts 0-5 SEEN Urine Mucus 0 SEEN Vancomycin Trough Urine Opiates Screen Urine Methadone Screen Ur Barbiturates Screen Ur Phencyclidine Scrn Ur Amphetamines Screen U Methamphetamin-MDMA U Benzodiazepines Scrn Urine Cocaine Screen U Cannabinoids Screen Ur Drug Screen Comment Acetone Level S.aureus Protein A PCR MRSA (PCR) POC Glucose 12/24/20 12/24/20 12/24/20 06:37 06:45 08:10 WBC RBC Hgb Hct MCV MCH MCHC RDW Std Deviation RDW Coeff of Rabia Plt Count MPV Immature Gran % (Auto) Neut % (Auto) Lymph % (Auto) Pratt % (Auto) Eos % (Auto) Baso % (Auto) Absolute Neuts (auto) Absolute Lymphs (auto) Nucleated RBC % Diff Path Review Platelet Estimate PT INR APTT Specimen Type Sample Site pH Bicarbonate Actual Total CO2 Base Excess O2 Saturation O2 % ABG pCO2 ABG pO2 Hector Test Respiration Rate O2 Delivery Device Liter Flow Vent Mode Tidal Volume POC PEEP Sodium 132 L Potassium 4.8 Chloride 104 Carbon Dioxide 4.0 L* Anion Gap 24 H BUN 13 Creatinine 1.32 H Estim Creat Clear Calc 90.15 Est GFR (MDRD) Af Amer 89 Est GFR (MDRD) Non-Af 74 BUN/Creatinine Ratio 9.8 L Glucose 596 H* Hemoglobin A1c Lactic Acid Calcium 7.7 L Magnesium 2.1 Total Bilirubin AST ALT Alkaline Phosphatase Total Creatine Kinase Total Protein Albumin Globulin Albumin/Globulin Ratio Prealbumin Triglycerides Urine Color Urine Clarity Urine pH Ur Specific [place] Urine Protein Urine Glucose (UA) Urine Ketones Urine Occult Blood Urine Nitrite Urine Bilirubin Urine Urobilinogen Ur Leukocyte Esterase Urine RBC Urine WBC Ur Squamous Epith Cells Amorphous Sediment Urine Bacteria Coarse Granular Casts Urine Mucus Vancomycin Trough Urine Opiates Screen Urine Methadone Screen Ur Barbiturates Screen Ur Phencyclidine Scrn Ur Amphetamines Screen U Methamphetamin-MDMA U Benzodiazepines Scrn Urine Cocaine Screen U Cannabinoids Screen Ur Drug Screen Comment Acetone Level S.aureus Protein A PCR MRSA (PCR) POC Glucose > 500 H* 12/24/20 12/24/20 12/24/20 08:10 08:10 08:10 WBC RBC Hgb Hct MCV MCH MCHC RDW Std Deviation RDW Coeff of Rabia Plt Count MPV Immature Gran % (Auto) Neut % (Auto) Lymph % (Auto) Pratt % (Auto) Eos % (Auto) Baso % (Auto) Absolute Neuts (auto) Absolute Lymphs (auto) Nucleated RBC % Diff Path Review Platelet Estimate PT INR APTT Specimen Type Sample Site pH Bicarbonate Actual Total CO2 Base Excess O2 Saturation O2 % ABG pCO2 ABG pO2 Hector Test Respiration Rate O2 Delivery Device Liter Flow Vent Mode Tidal Volume POC PEEP Sodium 136 Potassium 4.2 Chloride 108 H Carbon Dioxide 6.0 L* Anion Gap 22 H BUN 13 Creatinine 1.34 H Estim Creat Clear Calc 88.81 Est GFR (MDRD) Af Amer 87 Est GFR (MDRD) Non-Af 72 BUN/Creatinine Ratio 9.7 L Glucose 482 H* Hemoglobin A1c Lactic Acid 2.9 H* Calcium 7.7 L Magnesium Total Bilirubin AST ALT Alkaline Phosphatase Total Creatine Kinase Total Protein Albumin Globulin Albumin/Globulin Ratio Prealbumin Triglycerides Urine Color Urine Clarity Urine pH Ur Specific [place] Urine Protein Urine Glucose (UA) Urine Ketones Urine Occult Blood Urine Nitrite Urine Bilirubin Urine Urobilinogen Ur Leukocyte Esterase Urine RBC Urine WBC Ur Squamous Epith Cells Amorphous Sediment Urine Bacteria Coarse Granular Casts Urine Mucus Vancomycin Trough Urine Opiates Screen Urine Methadone Screen Ur Barbiturates Screen Ur Phencyclidine Scrn Ur Amphetamines Screen U Methamphetamin-MDMA U Benzodiazepines Scrn Urine Cocaine Screen U Cannabinoids Screen Ur Drug Screen Comment Acetone Level LARGE H S.aureus Protein A PCR MRSA (PCR) POC Glucose 12/24/20 12/24/20 12/24/20 08:12 08:40 08:57 WBC RBC Hgb Hct MCV MCH MCHC RDW Std Deviation RDW Coeff of Rabia Plt Count MPV Immature Gran % (Auto) Neut % (Auto) Lymph % (Auto) Pratt % (Auto) Eos % (Auto) Baso % (Auto) Absolute Neuts (auto) Absolute Lymphs (auto) Nucleated RBC % Diff Path Review Platelet Estimate PT INR APTT Specimen Type Sample Site pH Bicarbonate Actual Total CO2 Base Excess O2 Saturation O2 % ABG pCO2 ABG pO2 Hector Test Respiration Rate O2 Delivery Device Liter Flow Vent Mode Tidal Volume POC PEEP Sodium Potassium Chloride Carbon Dioxide Anion Gap BUN Creatinine Estim Creat Clear Calc Est GFR (MDRD) Af Amer Est GFR (MDRD) Non-Af BUN/Creatinine Ratio Glucose Hemoglobin A1c Lactic Acid Calcium Magnesium Total Bilirubin AST ALT Alkaline Phosphatase Total Creatine Kinase Total Protein Albumin Globulin Albumin/Globulin Ratio Prealbumin Triglycerides Urine Color Urine Clarity Urine pH Ur Specific [place] Urine Protein Urine Glucose (UA) Urine Ketones Urine Occult Blood Urine Nitrite Urine Bilirubin Urine Urobilinogen Ur Leukocyte Esterase Urine RBC Urine WBC Ur Squamous Epith Cells Amorphous Sediment Urine Bacteria Coarse Granular Casts Urine Mucus Vancomycin Trough Urine Opiates Screen NEGATIVE Urine Methadone Screen NEGATIVE Ur Barbiturates Screen NEGATIVE Ur Phencyclidine Scrn NEGATIVE Ur Amphetamines Screen NEGATIVE U Methamphetamin-MDMA NEGATIVE U Benzodiazepines Scrn NEGATIVE Urine Cocaine Screen NEGATIVE U Cannabinoids Screen NEGATIVE Ur Drug Screen Comment Acetone Level S.aureus Protein A PCR MRSA (PCR) POC Glucose 466 H* 368 H 12/24/20 12/24/20 12/24/20 09:09 09:53 11:00 WBC RBC Hgb Hct MCV MCH MCHC RDW Std Deviation RDW Coeff of Rabia Plt Count MPV Immature Gran % (Auto) Neut % (Auto) Lymph % (Auto) Pratt % (Auto) Eos % (Auto) Baso % (Auto) Absolute Neuts (auto) Absolute Lymphs (auto) Nucleated RBC % Diff Path Review Platelet Estimate PT INR APTT Specimen Type ART Sample Site R Radial pH 7.01 L* Bicarbonate Actual 4.9 L Total CO2 6 Base Excess -26 L O2 Saturation 96 O2 % 21 ABG pCO2 19.4 L ABG pO2 117 H Hector Test Respiration Rate 12 O2 Delivery Device Liter Flow Vent Mode AC Tidal Volume 450 POC PEEP 5 Sodium 141 Potassium 3.7 Chloride 114 H Carbon Dioxide 12.0 L Anion Gap 15 BUN 12 Creatinine 1.09 Estim Creat Clear Calc 104.89 Est GFR (MDRD) Af Amer 111 Est GFR (MDRD) Non-Af 92 BUN/Creatinine Ratio 11.0 Glucose 274 H Hemoglobin A1c Lactic Acid Calcium 7.9 L Magnesium Total Bilirubin AST ALT Alkaline Phosphatase Total Creatine Kinase Total Protein Albumin Globulin Albumin/Globulin Ratio Prealbumin Triglycerides Urine Color Urine Clarity Urine pH Ur Specific [place] Urine Protein Urine Glucose (UA) Urine Ketones Urine Occult Blood Urine Nitrite Urine Bilirubin Urine Urobilinogen Ur Leukocyte Esterase Urine RBC Urine WBC Ur Squamous Epith Cells Amorphous Sediment Urine Bacteria Coarse Granular Casts Urine Mucus Vancomycin Trough Urine Opiates Screen Urine Methadone Screen Ur Barbiturates Screen Ur Phencyclidine Scrn Ur Amphetamines Screen U Methamphetamin-MDMA U Benzodiazepines Scrn Urine Cocaine Screen U Cannabinoids Screen Ur Drug Screen Comment Acetone Level S.aureus Protein A PCR MRSA (PCR) POC Glucose 332 H 12/24/20 12/24/20 12/24/20 11:00 11:02 11:15 WBC RBC Hgb Hct MCV MCH MCHC RDW Std Deviation RDW Coeff of Rabia Plt Count MPV Immature Gran % (Auto) Neut % (Auto) Lymph % (Auto) Pratt % (Auto) Eos % (Auto) Baso % (Auto) Absolute Neuts (auto) Absolute Lymphs (auto) Nucleated RBC % Diff Path Review Platelet Estimate PT INR APTT Specimen Type Sample Site pH Bicarbonate Actual Total CO2 Base Excess O2 Saturation O2 % ABG pCO2 ABG pO2 Hector Test Respiration Rate O2 Delivery Device Liter Flow Vent Mode Tidal Volume POC PEEP Sodium Potassium Chloride Carbon Dioxide Anion Gap BUN Creatinine Estim Creat Clear Calc Est GFR (MDRD) Af Amer Est GFR (MDRD) Non-Af BUN/Creatinine Ratio Glucose Hemoglobin A1c Lactic Acid Calcium Magnesium Total Bilirubin AST ALT Alkaline Phosphatase Total Creatine Kinase 95 Total Protein Albumin Globulin Albumin/Globulin Ratio Prealbumin Triglycerides 492 H Urine Color Urine Clarity Urine pH Ur Specific [place] Urine Protein Urine Glucose (UA) Urine Ketones Urine Occult Blood Urine Nitrite Urine Bilirubin Urine Urobilinogen Ur Leukocyte Esterase Urine RBC Urine WBC Ur Squamous Epith Cells Amorphous Sediment Urine Bacteria Coarse Granular Casts Urine Mucus Vancomycin Trough Urine Opiates Screen Urine Methadone Screen Ur Barbiturates Screen Ur Phencyclidine Scrn Ur Amphetamines Screen U Methamphetamin-MDMA U Benzodiazepines Scrn Urine Cocaine Screen U Cannabinoids Screen Ur Drug Screen Comment Acetone Level S.aureus Protein A PCR Cancelled MRSA (PCR) Cancelled POC Glucose 250 H 12/24/20 12/24/20 12/24/20 12:20 12:58 13:56 WBC RBC Hgb Hct MCV MCH MCHC RDW Std Deviation RDW Coeff of Rabia Plt Count MPV Immature Gran % (Auto) Neut % (Auto) Lymph % (Auto) Pratt % (Auto) Eos % (Auto) Baso % (Auto) Absolute Neuts (auto) Absolute Lymphs (auto) Nucleated RBC % Diff Path Review Platelet Estimate PT INR APTT Specimen Type Sample Site pH Bicarbonate Actual Total CO2 Base Excess O2 Saturation O2 % ABG pCO2 ABG pO2 Hector Test Respiration Rate O2 Delivery Device Liter Flow Vent Mode Tidal Volume POC PEEP Sodium Potassium Chloride Carbon Dioxide Anion Gap BUN Creatinine Estim Creat Clear Calc Est GFR (MDRD) Af Amer Est GFR (MDRD) Non-Af BUN/Creatinine Ratio Glucose Hemoglobin A1c Lactic Acid Calcium Magnesium Total Bilirubin AST ALT Alkaline Phosphatase Total Creatine Kinase Total Protein Albumin Globulin Albumin/Globulin Ratio Prealbumin Triglycerides Urine Color Urine Clarity Urine pH Ur Specific [place] Urine Protein Urine Glucose (UA) Urine Ketones Urine Occult Blood Urine Nitrite Urine Bilirubin Urine Urobilinogen Ur Leukocyte Esterase Urine RBC Urine WBC Ur Squamous Epith Cells Amorphous Sediment Urine Bacteria Coarse Granular Casts Urine Mucus Vancomycin Trough Urine Opiates Screen Urine Methadone Screen Ur Barbiturates Screen Ur Phencyclidine Scrn Ur Amphetamines Screen U Methamphetamin-MDMA U Benzodiazepines Scrn Urine Cocaine Screen U Cannabinoids Screen Ur Drug Screen Comment Acetone Level S.aureus Protein A PCR MRSA (PCR) POC Glucose 230 H 205 H 222 H 12/24/20 12/24/20 12/24/20 15:29 15:40 16:39 WBC RBC Hgb Hct MCV MCH MCHC RDW Std Deviation RDW Coeff of Rabia Plt Count MPV Immature Gran % (Auto) Neut % (Auto) Lymph % (Auto) Pratt % (Auto) Eos % (Auto) Baso % (Auto) Absolute Neuts (auto) Absolute Lymphs (auto) Nucleated RBC % Diff Path Review Platelet Estimate PT INR APTT Specimen Type Sample Site pH Bicarbonate Actual Total CO2 Base Excess O2 Saturation O2 % ABG pCO2 ABG pO2 Hector Test Respiration Rate O2 Delivery Device Liter Flow Vent Mode Tidal Volume POC PEEP Sodium 142 Potassium 3.2 L Chloride 116 H Carbon Dioxide 16.0 L Anion Gap 10 BUN 11 Creatinine 1.10 Estim Creat Clear Calc 103.94 Est GFR (MDRD) Af Amer 110 Est GFR (MDRD) Non-Af 91 BUN/Creatinine Ratio 10.0 Glucose 220 H Hemoglobin A1c Lactic Acid Calcium 8.3 L Magnesium Total Bilirubin AST ALT Alkaline Phosphatase Total Creatine Kinase Total Protein Albumin Globulin Albumin/Globulin Ratio Prealbumin Triglycerides Urine Color Urine Clarity Urine pH Ur Specific [place] Urine Protein Urine Glucose (UA) Urine Ketones Urine Occult Blood Urine Nitrite Urine Bilirubin Urine Urobilinogen Ur Leukocyte Esterase Urine RBC Urine WBC Ur Squamous Epith Cells Amorphous Sediment Urine Bacteria Coarse Granular Casts Urine Mucus Vancomycin Trough Urine Opiates Screen Urine Methadone Screen Ur Barbiturates Screen Ur Phencyclidine Scrn Ur Amphetamines Screen U Methamphetamin-MDMA U Benzodiazepines Scrn Urine Cocaine Screen U Cannabinoids Screen Ur Drug Screen Comment Acetone Level S.aureus Protein A PCR MRSA (PCR) POC Glucose 205 H 216 H 12/24/20 12/24/20 12/24/20 17:37 18:34 18:55 WBC RBC Hgb Hct MCV MCH MCHC RDW Std Deviation RDW Coeff of Rabia Plt Count MPV Immature Gran % (Auto) Neut % (Auto) Lymph % (Auto) Pratt % (Auto) Eos % (Auto) Baso % (Auto) Absolute Neuts (auto) Absolute Lymphs (auto) Nucleated RBC % Diff Path Review Platelet Estimate PT INR APTT Specimen Type Sample Site pH Bicarbonate Actual Total CO2 Base Excess O2 Saturation O2 % ABG pCO2 ABG pO2 Hector Test Respiration Rate O2 Delivery Device Liter Flow Vent Mode Tidal Volume POC PEEP Sodium 143 Potassium 3.1 L Chloride 117 H Carbon Dioxide 19.0 L Anion Gap 7 BUN 11 Creatinine 1.08 Estim Creat Clear Calc 105.86 Est GFR (MDRD) Af Amer 112 Est GFR (MDRD) Non-Af 93 BUN/Creatinine Ratio 10.2 Glucose 197 H Hemoglobin A1c Lactic Acid Calcium 8.3 L Magnesium Total Bilirubin AST ALT Alkaline Phosphatase Total Creatine Kinase Total Protein Albumin Globulin Albumin/Globulin Ratio Prealbumin Triglycerides Urine Color Urine Clarity Urine pH Ur Specific [place] Urine Protein Urine Glucose (UA) Urine Ketones Urine Occult Blood Urine Nitrite Urine Bilirubin Urine Urobilinogen Ur Leukocyte Esterase Urine RBC Urine WBC Ur Squamous Epith Cells Amorphous Sediment Urine Bacteria Coarse Granular Casts Urine Mucus Vancomycin Trough Urine Opiates Screen Urine Methadone Screen Ur Barbiturates Screen Ur Phencyclidine Scrn Ur Amphetamines Screen U Methamphetamin-MDMA U Benzodiazepines Scrn Urine Cocaine Screen U Cannabinoids Screen Ur Drug Screen Comment Acetone Level S.aureus Protein A PCR MRSA (PCR) POC Glucose 219 H 191 H 12/24/20 12/24/20 12/24/20 19:40 20:40 21:39 WBC RBC Hgb Hct MCV MCH MCHC RDW Std Deviation RDW Coeff of Rabia Plt Count MPV Immature Gran % (Auto) Neut % (Auto) Lymph % (Auto) Pratt % (Auto) Eos % (Auto) Baso % (Auto) Absolute Neuts (auto) Absolute Lymphs (auto) Nucleated RBC % Diff Path Review Platelet Estimate PT INR APTT Specimen Type Sample Site pH Bicarbonate Actual Total CO2 Base Excess O2 Saturation O2 % ABG pCO2 ABG pO2 Hector Test Respiration Rate O2 Delivery Device Liter Flow Vent Mode Tidal Volume POC PEEP Sodium Potassium Chloride Carbon Dioxide Anion Gap BUN Creatinine Estim Creat Clear Calc Est GFR (MDRD) Af Amer Est GFR (MDRD) Non-Af BUN/Creatinine Ratio Glucose Hemoglobin A1c Lactic Acid Calcium Magnesium Total Bilirubin AST ALT Alkaline Phosphatase Total Creatine Kinase Total Protein Albumin Globulin Albumin/Globulin Ratio Prealbumin Triglycerides Urine Color Urine Clarity Urine pH Ur Specific [place] Urine Protein Urine Glucose (UA) Urine Ketones Urine Occult Blood Urine Nitrite Urine Bilirubin Urine Urobilinogen Ur Leukocyte Esterase Urine RBC Urine WBC Ur Squamous Epith Cells Amorphous Sediment Urine Bacteria Coarse Granular Casts Urine Mucus Vancomycin Trough Urine Opiates Screen Urine Methadone Screen Ur Barbiturates Screen Ur Phencyclidine Scrn Ur Amphetamines Screen U Methamphetamin-MDMA U Benzodiazepines Scrn Urine Cocaine Screen U Cannabinoids Screen Ur Drug Screen Comment Acetone Level S.aureus Protein A PCR MRSA (PCR) POC Glucose 185 H 160 H 131 H 12/24/20 12/24/20 12/24/20 22:36 23:30 23:31 WBC RBC Hgb Hct MCV MCH MCHC RDW Std Deviation RDW Coeff of Rabia Plt Count MPV Immature Gran % (Auto) Neut % (Auto) Lymph % (Auto) Pratt % (Auto) Eos % (Auto) Baso % (Auto) Absolute Neuts (auto) Absolute Lymphs (auto) Nucleated RBC % Diff Path Review Platelet Estimate PT INR APTT Specimen Type Sample Site pH Bicarbonate Actual Total CO2 Base Excess O2 Saturation O2 % ABG pCO2 ABG pO2 Hector Test Respiration Rate O2 Delivery Device Liter Flow Vent Mode Tidal Volume POC PEEP Sodium 144 Potassium 3.5 Chloride 117 H Carbon Dioxide 20.0 L Anion Gap 7 BUN 11 Creatinine 0.85 Estim Creat Clear Calc 134.51 Est GFR (MDRD) Af Amer 148 Est GFR (MDRD) Non-Af 123 BUN/Creatinine Ratio 13.0 Glucose 143 H Hemoglobin A1c Lactic Acid Calcium 8.3 L Magnesium Total Bilirubin AST ALT Alkaline Phosphatase Total Creatine Kinase Total Protein Albumin Globulin Albumin/Globulin Ratio Prealbumin Triglycerides Urine Color Urine Clarity Urine pH Ur Specific [place] Urine Protein Urine Glucose (UA) Urine Ketones Urine Occult Blood Urine Nitrite Urine Bilirubin Urine Urobilinogen Ur Leukocyte Esterase Urine RBC Urine WBC Ur Squamous Epith Cells Amorphous Sediment Urine Bacteria Coarse Granular Casts Urine Mucus Vancomycin Trough Urine Opiates Screen Urine Methadone Screen Ur Barbiturates Screen Ur Phencyclidine Scrn Ur Amphetamines Screen U Methamphetamin-MDMA U Benzodiazepines Scrn Urine Cocaine Screen U Cannabinoids Screen Ur Drug Screen Comment Acetone Level S.aureus Protein A PCR MRSA (PCR) POC Glucose 138 H 142 H 12/24/20 12/25/20 12/25/20 Unknown 02:14 04:04 WBC RBC Hgb Hct MCV MCH MCHC RDW Std Deviation RDW Coeff of Rabia Plt Count MPV Immature Gran % (Auto) Neut % (Auto) Lymph % (Auto) [place]att % (Auto) Eos % (Auto) Baso % (Auto) Absolute Neuts (auto) Absolute Lymphs (auto) Nucleated RBC % Diff Path Review Platelet Estimate PT INR APTT Specimen Type Sample Site pH Bicarbonate Actual Total CO2 Base Excess O2 Saturation O2 % ABG pCO2 ABG pO2 Hector Test Respiration Rate O2 Delivery Device Liter Flow Vent Mode Tidal Volume POC PEEP Sodium Potassium Chloride Carbon Dioxide Anion Gap BUN Creatinine Estim Creat Clear Calc Est GFR (MDRD) Af Amer Est GFR (MDRD) Non-Af BUN/Creatinine Ratio Glucose Hemoglobin A1c Lactic Acid Calcium Magnesium Total Bilirubin AST ALT Alkaline Phosphatase Total Creatine Kinase Total Protein Albumin Globulin Albumin/Globulin Ratio Prealbumin Triglycerides Urine Color Urine Clarity Urine pH Ur Specific [place] Urine Protein Urine Glucose (UA) Urine Ketones Urine Occult Blood Urine Nitrite Urine Bilirubin Urine Urobilinogen Ur Leukocyte Esterase Urine RBC Urine WBC Ur Squamous Epith Cells Amorphous Sediment Urine Bacteria Coarse Granular Casts Urine Mucus Vancomycin Trough Urine Opiates Screen Urine Methadone Screen Ur Barbiturates Screen Ur Phencyclidine Scrn Ur Amphetamines Screen U Methamphetamin-MDMA U Benzodiazepines Scrn Urine Cocaine Screen U Cannabinoids Screen Ur Drug Screen Comment Acetone Level S.aureus Protein A PCR Cancelled MRSA (PCR) Cancelled POC Glucose 276 H 263 H 12/25/20 12/25/20 12/25/20 04:05 04:05 04:05 WBC 5.9 RBC 3.64 L Hgb 10.9 L Hct 31.3 L MCV 86.0 D MCH 29.9 MCHC 34.8 RDW Std Deviation 39.5 RDW Coeff of Rabia 12.6 Plt Count 299 MPV 8.8 Immature Gran % (Auto) 0.800 Neut % (Auto) 72.0 H Lymph % (Auto) 14.7 L Pratt % (Auto) 8.9 Eos % (Auto) 2.9 Baso % (Auto) 0.7 Absolute Neuts (auto) 4.3 Absolute Lymphs (auto) 0.87 Nucleated RBC % 0 Diff Path Review Platelet Estimate PT INR APTT Specimen Type Sample Site pH Bicarbonate Actual Total CO2 Base Excess O2 Saturation O2 % ABG pCO2 ABG pO2 Hector Test Respiration Rate O2 Delivery Device Liter Flow Vent Mode Tidal Volume POC PEEP Sodium 141 Potassium 3.0 L Chloride 114 H Carbon Dioxide 20.0 L Anion Gap 7 BUN 9 Creatinine 1.01 Estim Creat Clear Calc 113.20 Est GFR (MDRD) Af Amer 121 Est GFR (MDRD) Non-Af 100 BUN/Creatinine Ratio 8.9 L Glucose 271 H Hemoglobin A1c Lactic Acid Calcium 8.4 L Magnesium Total Bilirubin 0.70 AST 12 L ALT 14 L Alkaline Phosphatase 94 Total Creatine Kinase Total Protein 5.8 L Albumin 2.6 L Globulin 3.2 Albumin/Globulin Ratio 0.8 L Prealbumin 9.1 L Triglycerides Urine Color Urine Clarity Urine pH Ur Specific Franklin Urine Protein Urine Glucose (UA) Urine Ketones Urine Occult Blood Urine Nitrite Urine Bilirubin Urine Urobilinogen Ur Leukocyte Esterase Urine RBC Urine WBC Ur Squamous Epith Cells Amorphous Sediment Urine Bacteria Coarse Granular Casts Urine Mucus Vancomycin Trough Urine Opiates Screen Urine Methadone Screen Ur Barbiturates Screen Ur Phencyclidine Scrn Ur Amphetamines Screen U Methamphetamin-MDMA U Benzodiazepines Scrn Urine Cocaine Screen U Cannabinoids Screen Ur Drug Screen Comment Acetone Level S.aureus Protein A PCR MRSA (PCR) POC Glucose 12/25/20 12/25/20 12/25/20 05:34 08:49 12:21 WBC RBC Hgb Hct MCV MCH MCHC RDW Std Deviation RDW Coeff of Rabia Plt Count MPV Immature Gran % (Auto) Neut % (Auto) Lymph % (Auto) Pratt % (Auto) Eos % (Auto) Baso % (Auto) Absolute Neuts (auto) Absolute Lymphs (auto) Nucleated RBC % Diff Path Review Platelet Estimate PT INR APTT Specimen Type Sample Site pH Bicarbonate Actual Total CO2 Base Excess O2 Saturation O2 % ABG pCO2 ABG pO2 Hector Test Respiration Rate O2 Delivery Device Liter Flow Vent Mode Tidal Volume POC PEEP Sodium Potassium Chloride Carbon Dioxide Anion Gap BUN Creatinine Estim Creat Clear Calc Est GFR (MDRD) Af Amer Est GFR (MDRD) Non-Af BUN/Creatinine Ratio Glucose Hemoglobin A1c Lactic Acid Calcium Magnesium Total Bilirubin AST ALT Alkaline Phosphatase Total Creatine Kinase Total Protein Albumin Globulin Albumin/Globulin Ratio Prealbumin Triglycerides Urine Color Urine Clarity Urine pH Ur Specific [place] Urine Protein Urine Glucose (UA) Urine Ketones Urine Occult Blood Urine Nitrite Urine Bilirubin Urine Urobilinogen Ur Leukocyte Esterase Urine RBC Urine WBC Ur Squamous Epith Cells Amorphous Sediment Urine Bacteria Coarse Granular Casts Urine Mucus Vancomycin Trough Urine Opiates Screen Urine Methadone Screen Ur Barbiturates Screen Ur Phencyclidine Scrn Ur Amphetamines Screen U Methamphetamin-MDMA U Benzodiazepines Scrn Urine Cocaine Screen U Cannabinoids Screen Ur Drug Screen Comment Acetone Level S.aureus Protein A PCR MRSA (PCR) POC Glucose 229 H 197 H 348 H 12/25/20 12/25/20 12/25/20 16:58 17:30 17:30 WBC RBC Hgb Hct MCV MCH MCHC RDW Std Deviation RDW Coeff of Rabia Plt Count MPV Immature Gran % (Auto) Neut % (Auto) Lymph % (Auto) Pratt % (Auto) Eos % (Auto) Baso % (Auto) Absolute Neuts (auto) Absolute Lymphs (auto) Nucleated RBC % Diff Path Review Platelet Estimate PT INR APTT Specimen Type Sample Site pH Bicarbonate Actual Total CO2 Base Excess O2 Saturation O2 % ABG pCO2 ABG pO2 Hector Test Respiration Rate O2 Delivery Device Liter Flow Vent Mode Tidal Volume POC PEEP Sodium 131 L Potassium 3.3 L Chloride 102 Carbon Dioxide 22.0 Anion Gap 7 BUN 11 Creatinine 0.77 Estim Creat Clear Calc 151.08 Est GFR (MDRD) Af Amer 166 Est GFR (MDRD) Non-Af 137 BUN/Creatinine Ratio 14.3 Glucose 423 H Hemoglobin A1c Lactic Acid Calcium 8.5 Magnesium Total Bilirubin AST ALT Alkaline Phosphatase Total Creatine Kinase Total Protein Albumin Globulin Albumin/Globulin Ratio Prealbumin Triglycerides Urine Color Urine Clarity Urine pH Ur Specific [place] Urine Protein Urine Glucose (UA) Urine Ketones Urine Occult Blood Urine Nitrite Urine Bilirubin Urine Urobilinogen Ur Leukocyte Esterase Urine RBC Urine WBC Ur Squamous Epith Cells Amorphous Sediment Urine Bacteria Coarse Granular Casts Urine Mucus Vancomycin Trough 8.4 Urine Opiates Screen Urine Methadone Screen Ur Barbiturates Screen Ur Phencyclidine Scrn Ur Amphetamines Screen U Methamphetamin-MDMA U Benzodiazepines Scrn Urine Cocaine Screen U Cannabinoids Screen Ur Drug Screen Comment Acetone Level S.aureus Protein A PCR MRSA (PCR) POC Glucose 455 H* 12/25/20 12/25/20 19:11 21:51 WBC RBC Hgb Hct MCV MCH MCHC RDW Std Deviation RDW Coeff of Rabia Plt Count MPV Immature Gran % (Auto) Neut % (Auto) Lymph % (Auto) Pratt % (Auto) Eos % (Auto) Baso % (Auto) Absolute Neuts (auto) Absolute Lymphs (auto) Nucleated RBC % Diff Path Review Platelet Estimate PT INR APTT Specimen Type Sample Site pH Bicarbonate Actual Total CO2 Base Excess O2 Saturation O2 % ABG pCO2 ABG pO2 Hector Test Respiration Rate O2 Delivery Device Liter Flow Vent Mode Tidal Volume POC PEEP Sodium Potassium Chloride Carbon Dioxide Anion Gap BUN Creatinine Estim Creat Clear Calc Est GFR (MDRD) Af Amer Est GFR (MDRD) Non-Af BUN/Creatinine Ratio Glucose Hemoglobin A1c Lactic Acid Calcium Magnesium Total Bilirubin AST ALT Alkaline Phosphatase Total Creatine Kinase Total Protein Albumin Globulin Albumin/Globulin Ratio Prealbumin Triglycerides Urine Color Urine Clarity Urine pH Ur Specific [place] Urine Protein Urine Glucose (UA) Urine Ketones Urine Occult Blood Urine Nitrite Urine Bilirubin Urine Urobilinogen Ur Leukocyte Esterase Urine RBC Urine WBC Ur Squamous Epith Cells Amorphous Sediment Urine Bacteria Coarse Granular Casts Urine Mucus Vancomycin Trough Urine Opiates Screen Urine Methadone Screen Ur Barbiturates Screen Ur Phencyclidine Scrn Ur Amphetamines Screen U Methamphetamin-MDMA U Benzodiazepines Scrn Urine Cocaine Screen U Cannabinoids Screen Ur Drug Screen Comment Acetone Level S.aureus Protein A PCR MRSA (PCR) POC Glucose 370 H 209 H Microbiology 12/24/20 Unknown Wound Abcess - Leg, Left Gram Stain - Final 12/24/20 Unknown Wound Abcess - Leg, Left Wound Culture - Preliminary Possible Fungus 12/24/20 11:15 Wound - Leg, Left Gram Stain - Final 12/24/20 11:15 Wound - Leg, Left Wound Culture - Preliminary No growth-Final to follow 12/24/20 05:45 Urine Catheter - Catheter Urine Culture - Preliminary Culture exhibits no growth. 12/24/20 12:45 Mucosa - Nasopharyngeal SARS-CoV-2 Antigen (Rapid) - Final Clinical Impression(s) from Imaging Studies Chest X-Ray 12/24/20 05:25 IMPRESSION: No acute cardiopulmonary abnormality. at 0615 Reported and signed by: Yael Garner MD Electronically Signed: Yael Garner MD at 6:15 EST Tel , Service support , Femur X-Ray 12/24/20 05:40 IMPRESSION: No acute osseous abnormality. Soft tissue defect in the posterior mid thigh. at 0621 Reported and signed by: Yael Garner MD Electronically Signed: Yael Garner MD at 6:20 EST Tel , Service support , Chest X-Ray 12/24/20 07:09 IMPRESSION: Endotracheal tube and gastric tube in place. at 0727 Reported and signed by: Yael Garner MD Electronically Signed: Yael Garner MD at 7:27 EST Tel , Service support , Medical Necessity - Tobacco Use Smoking Status: Never smoker Assessment/Plan All Active Problems (Last Reviewed 10/27/20 @ 11:[address] 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 Continue antibiotics as ordered. 2. Continue Lantus with sliding scale insulin coverage. 3. Encourage incentive spirometer use while in bed and mobilize patient as tolerated. 4. The patient is medically stable for transfer out of the intensive care unit. 5. Given the patient's lack of further ICU or pulmonary needs, will sign off. Please call with any additional questions. IMPRESSIONS: 1. Acute respiratory failure Resolved. The patient was initially intubated in the emergency department due to encephalopathy and increased work of breathing, which was likely secondary to an attempt to compensate from his significant metabolic derangements. The patient was able to be quickly weaned from invasive mechanical ventilatory support and was subsequently extubated on December 25. The patient is currently maintaining appropriate oxygen saturations on room air. 2. Diabetic ketoacidosis Resolved. Likely secondary to noncompliance and complicated by diabetic wound. Continuous insulin infusion has been discontinued. Continue basal and sliding scale insulin coverage. 3. Severe sepsis Again, concern for diabetic wound as possible infectious etiology. The patient is currently on appropriate antimicrobials. The patient has been adequately volume resuscitated and remains hemodynamically stable. Continue local wound care. 4. Acute kidney injury/anion gap metabolic acidosis Improved. Likely prerenal in etiology. Continue to monitor urine output. No current indication for renal replacement therapy. 5. Personal history of asthma/GERD Complicates care, management, recovery and prognosis. Continue home medications as indicated. This note was generated with [employer] dictation software. It may contain incorrect words, spelling, and punctuation that were not noted in checking the note before signing. Inpatient E&M: [id number] [facility] L3
[2020-12-26 07:00] LABS: Bedside Glucose 143 mg/dL (70-110)
--- NOTE | 2020-12-26 07:14 | PCM.PN.HOSP ---
Patient Problems: Active and Suspected Problems (Last Reviewed 10/27/20 @ 11:[address] 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 ED work-up included evidence of hypothermia, tachycardia, tachypnea, CBC with WC 25 with platelet count 799 with left shift evident, VBG with pH 6.75 with PCO2 16 and PO2 157, CMP with sodium 132, bicarb 4 and creatinine 1.32, lactic acid 3.7, serum acetone large, chest x-ray with no acute cardiopulmonary findings, glucose 596, hemoglobin A1c greater than 14, SARS rapid Covid antigen negative, urinalysis with specific gravity 1.020, glucose 1000, ketones 150 otherwise no obvious evidence of UTI, UDS unremarkable, in ED patient was aggressively hydrated, administered bicarb and broad-spectrum antibiotic therapy given concern for sepsis as presentation etiology and eventually intubated secondary to concerns for airway. Of note 12/10/2020 most recent surgical culture with MS-CoNS, klebs, enterobacter, MRSE, and anaerobes. Patient admitted to the ICU, maintained on propofol and fentanyl, intubated, continued on Zosyn therapy as well as vancomycin addition to x1 dose clindamycin in the ED. OR 12/24/2020 for infected left thigh wound which had significantly worsened with noted significant necrotic tissue, muscle and purulent material with wound OR culture and MRSA wound pending. Patient extubated 12/25/2020 AM successfully. Given clinical improvement 12/26/2020 transition out of the ICU to PCU status given still mild tachycardia and severe sepsis presentation. Patient required additional significant subcu insulin overnight therefore transition to insulin with meals with overlapping insulin sliding scale and increase long-acting to twice daily regimen especially given hemoglobin A1c greater than 14%. Discussed with Dr. Landin and will have dressing change today to Betadine soaked packing with 4 x 4 overlay as well as ABD, Kerlix wrap and Carlos wrap with planned VAC placement 12/27/2020. Patient would benefit from long term facility placement following and is amenable at this time. Patient overnight did require alteration to his insulin regimen including increase of his Lantus as well as short acting addition with meals and 2 rounds of subcu insulin secondary to elevated blood sugars however he did receive his overlapping later as opposed to crossover with discontinuation of insulin drip. Patient notes ongoing discomfort to the left leg and is amenable to transition to long term facility once clinically appropriate for discharge. Discussed case with Dr. Landin today and plan dressing change today with likely VAC 12/27/2020 which was amenable patient. Patient denies fevers, chills, nausea, emesis, abdominal pain, chest pain or dyspnea. Objective: Physical Examination: General: awake, alert, oriented x 3 and cooperative, seated upright in the ICU bed, less fatigued, more alert, less in tachycardia, notes some discomfort to the left leg currently, transitioning to PCU currently. Skin: normal color, turgor, no icterus, cyanosis except noted left leg status post I&D with dressing in place, some drainage however looks like Betadine. HEENT: AT/NC, EOMI, PERRLA, improved MMM. Lungs: Diminished breath sounds, greater bases, improved effort, no rales, ronchi or wheezing. Heart: Improved but still mildly tachycardic with regular rhythm; no gallop, rub audible. Abdomen: soft, NTTP, ND, normal BS. Extremities: no cyanosis or clubbing, see skin, peripheral pulses intact, status post left leg I&D with dressing in place, some mild drainage, appears like Betadine. Neurological: patient awake, alert, oriented x 3; cognitive function intact; pupils equally reactive to light and accomodation; cranial nerves II-XII grossly normal, moving all 4 extremities although some limitation given recent left lower extremity I&D with discomfort with movement, strength improving, moderately globally decreased. Psychiatric: affect appears less fatigued, more alert today, no acute evidence of depressive or anxiety feelings. Vitals/I&O's: Vital Signs Temp Pulse Resp BP Pulse Ox 98.1 F 106 H 13 122/78 H 100 12/26/20 07:00 12/26/20 07:00 12/26/20 07:00 12/26/20 07:00 12/26/20 07:00 Oxygen Flow Rate (L/min) 15 Oxygen Delivery Method Room Air Weight: 158 lb 1.143 oz Body Mass Index (BMI) 20.0 Finger Stick Blood Glucose 138 Intake and Output for Last 24 Hours 12/24/20 12/25/20 12/26/20 23:59 23:59 23:59 Intake Total 7654.81 / 7668.91 8142.84 / 8142.84 250 / 250 Output Total 4480 / 4540 7730 / 7730 1950 / 1950 Balance 3174.81 / 3128.91 412.84 / 412.84 -1700 / -1700 Microbiology Past 72 Hours 12/24/20 Unknown Wound Abcess - Leg, Left Gram Stain - Final 12/24/20 Unknown Wound Abcess - Leg, Left Wound Culture - Preliminary Possible Fungus 12/24/20 11:15 Wound - Leg, Left Gram Stain - Final 12/24/20 11:15 Wound - Leg, Left Wound Culture - Preliminary No growth-Final to follow 12/24/20 05:45 Urine Catheter - Catheter Urine Culture - Preliminary Culture exhibits no growth. 12/24/20 12:45 Mucosa - Nasopharyngeal SARS-CoV-2 Antigen (Rapid) - Final Laboratory Results 12/25/20 08:49: POC Glucose 197 H 12/25/20 12:21: POC Glucose 348 H 12/25/20 16:58: POC Glucose 455 H* 12/25/20 17:30: Sodium 131 L, Potassium 3.3 L, Chloride 102, Carbon Dioxide 22.0, Anion Gap 7, BUN 11, Creatinine 0.77, Estim Creat Clear Calc 151.08, Est GFR (MDRD) Af Amer 166, Est GFR (MDRD) Non-Af 137, BUN/Creatinine Ratio 14.3, Glucose 423 H, Calcium 8.5 12/25/20 17:30: Vancomycin Trough 8.4 12/25/20 19:11: POC Glucose 370 H 12/25/20 21:51: POC Glucose 209 H 12/26/20 06:50: POC Glucose 143 H Current Medications Acetaminophen (Acetaminophen 650 Mg/20 Ml Udc) 650 mg PO Q6H PRN PRN PRN Reason: Pain Score 1-3 /Temp>100.7 Al Hydroxide/Mg Hydroxide (Mag Hydrox/Al Hydrox/Simeth 30 Ml Udc) 30 ml PO Q6H PRN PRN PRN Reason: Gastric Burning Albuterol Sulfate (Albuterol 2.5 Mg/3 Ml Vial.Neb.) 2.5 mg INHALATION Q2H PRN PRN PRN Reason: Dyspnea, wheezing Bisacodyl (Bisacodyl 5 Mg Tablet) 10 mg PO DAILY PRN PRN PRN Reason: Constipation Chlorhexidine Gluconate (Chlorhexidine Gluc 2% Cloth 1 Each Towelette) 1 each TOPICAL DAILY [facility] Last Admin: 12/25/20 12:46 Dose: Not Given Documented by: Dextrose (Dextrose 50%-Water 25 Gm/50 Ml Disp.Syrin) 0 gm IV X1 PRN; Protocol PRN Reason: HYPOGLYCEMIA Dextrose (Dextrose 50%-Water 25 Gm/50 Ml Disp.Syrin) 0 gm IV X1 PRN; Protocol PRN Reason: Hypoglycemia Docusate Sodium (Docusate Sodium 100 Mg Capsule) 200 mg PO BID PRN PRN PRN Reason: Constipation Enoxaparin Sodium (Enoxaparin 40 Mg/0.4 Ml Syringe) 40 mg SC DAILY [facility] Last Admin: 12/25/20 12:24 Dose: 40 mg Documented by: Famotidine (Famotidine 20 Mg Tablet) 20 mg PO BID [facility] Last Admin: 12/25/20 21:58 Dose: 20 mg Documented by: Glucagon (Glucagon 1 Mg/Ml Syringe) 1 mg IM .X1 PRN PRN Reason: Hypoglycemia Hydralazine HCl (Hydralazine 20 Mg/Ml Vial) 10 mg IV Q4H PRN PRN PRN Reason: SBP > 160 Piperacillin Sod/Tazobactam (Sod 3.375 gm/ Sodium Chloride) 50 mls @ 12.5 mls/hr IV Q8 [facility] Last Admin: 12/26/20 06:28 Dose: 12.5 mls/hr Documented by: Vancomycin IV Pharmacy to Dose (1 ea/ Sodium Chloride) 500 mls @ 250 mls/hr IV PRN PRN; Protocol PRN Reason: Rx to Dose Sodium Chloride () 250 mls @ 15 mls/hr IV .[id number] PRN PRN Reason: Saline Flush Sodium Chloride () 250 mls @ 15 mls/hr IV .[id number] PRN PRN Reason: Additional IVPB Infusion Vancomycin HCl (Vancomycin) 1,000 mg in 200 mls @ 200 mls/hr IV Q8H [facility] Last Infusion: 12/26/20 03:15 Dose: Infused Documented by: Insulin Glargine (Insulin Glargine 100 Units/Ml Pen) 35 units SC QHS [facility] Last Admin: 12/25/20 22:01 Dose: 35 units Documented by: Insulin Human Lispro (Insulin Lispro 100 Unit/Ml Insuln.Pen) 0 unit SC [facility]; Protocol Last Admin: 12/25/20 22:04 Dose: 3 units Documented by: Insulin Human Lispro (Insulin Lispro 100 Unit/Ml Insuln.Pen) 5 unit SC TIDAC [facility] Morphine Sulfate (Morphine 2 Mg/Ml Syringe) 2 - 4 mg IV Q4H PRN PRN PRN Reason: Pain Score 6-10 Morphine Sulfate (Morphine 4 Mg/Ml Syringe) 2 - 4 mg IV Q4H PRN PRN PRN Reason: Pain Score 6-10 Nutritional Formula (Lactose Free) (Glucerna Shake 120 Ml Liquid) 120 ml PO 4X/DAY [facility] Last Admin: 12/25/20 22:14 Dose: Not Given Documented by: Ondansetron HCl (Ondansetron 4 Mg/2 Ml Vial) 4 mg IV Q8H PRN PRN PRN Reason: Nausea Oxycodone HCl (Oxycodone 5 Mg Tablet) 5 mg PO Q4H PRN PRN PRN Reason: Pain Score 6-10 Last Admin: 12/25/20 20:01 Dose: 5 mg Documented by: Polyethylene Glycol (Polyethylene Glycol 3350 17 Gm Packet) 17 gm PO DAILY [facility] Prochlorperazine Edisylate (Prochlorperazine 10 Mg/2 Ml Vial) 10 mg IV Q6H PRN PRN PRN Reason: Nausea/Vomiting Sodium Chloride (0.9% Saline Lock 10 Ml Syringe) 10 - 40 ml IV UD PRN PRN Reason: SALINE FLUSH Last Admin: 12/24/20 18:59 Dose: 30 ml Documented by: STROKE Vital Signs/Narrative: Vital Signs Temp Pulse Resp BP Pulse Ox 12/26/20 07:00 98.1 F 106 H 13 122/78 H 100 12/26/20 06:00 98.1 F 104 H 13 119/78 99 12/26/20 05:00 98.1 F 100 15 123/76 H 99 12/26/20 04:27 97 12/26/20 04:00 98.1 F 102 H 15 121/76 H 99 Medical Necessity - Tobacco Use Smoking Status: Never smoker Assessment/Plan All Active Problems (Last Reviewed 10/27/20 @ 11:[address] 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 1. Acute Hypoxic Respiratory Failure, Multifactorial, secondary to Acute Severe Sepsis secondary to Acute left thigh infected wound and #2 Uncontrolled diabetes mellitus type I in the setting of DKA: ED work-up included evidence of hypothermia, tachycardia, tachypnea, CBC with WC 25 with platelet count 799 with left shift evident, VBG with pH 6.75 with PCO2 16 and PO2 157, CMP with sodium 132, bicarb 4 and creatinine 1.32, lactic acid 3.7, serum acetone large, chest x-ray with no acute cardiopulmonary findings, glucose 596, hemoglobin A1c greater than 14, SARS rapid Covid antigen negative, urinalysis with specific gravity 1.020, glucose 1000, ketones 150 otherwise no obvious evidence of UTI, UDS unremarkable, in ED patient was aggressively hydrated, administered bicarb and broad-spectrum antibiotic therapy given concern for sepsis as presentation etiology and eventually intubated secondary to concerns for airway. Of note 12/10/2020 most recent surgical culture with MS-CoNS, klebs, enterobacter, MRSE, and anaerobes. Patient admitted to the ICU, maintained on propofol and fentanyl, intubated, continued on Zosyn therapy as well as vancomycin addition to x1 dose clindamycin in the ED. OR 12/24/2020 for infected left thigh wound which had significantly worsened with noted significant necrotic tissue, muscle and purulent material with wound OR culture and MRSA wound pending. Patient extubated 12/25/2020 AM successfully. Given clinical improvement 12/26/2020 transition out of the ICU to PCU status given still mild tachycardia and severe sepsis presentation. Patient required additional significant subcu insulin overnight therefore transition to insulin with meals with overlapping insulin sliding scale and increase long-acting to twice daily regimen especially given hemoglobin A1c greater than 14%. Discussed with Dr. Landin and will have dressing change today to Betadine soaked packing with 4 x 4 overlay as well as ABD, Kerlix wrap and Carlos wrap with planned VAC placement 12/27/2020. Patient would benefit from long term facility placement following and is amenable at this time. 2. DKA w/ Diabetes mellitus type I: Admitted on insulin drip given DKA presentation likely secondary to #1, A1c greater than 14%, noncompliant history, transitioned successfully off insulin drip 12/24/2020 evening, transition to subcu insulin. Patient required additional significant subcu insulin overnight therefore transition to insulin with meals with overlapping insulin sliding scale and increase long-acting to 35 u BID lantus twice daily regimen. Continued nutrition consultation for education and teaching. Patient amenable to long term facility for discharge given #1 which would be beneficial also to achieve improved blood sugar control. 3. Acute kidney injury: Secondary to acute presentation as noted #1, #2. Admission BUN/Cr 13/1.53, prior baseline creatinine noted to be 0.8-1.0 primarily. Patient aggressively hydrated especially given #1 presentation and #2, 12/26/2020 BUN/creatinine 11/0.82, resolved. 4. Hypokalemia: Admission K+ 2.7, recent magnesium normal, supplementation given, repeat level this afternoon and in AM. 5. Acute encephalopathy, multifactorial: Secondary to #1, #2, #3, continue treatments as noted above, improving, extubated 12/25/2019 1 AM. 6. GERD: We will add oral famotidine. 7. History of asthma: Noted history previously per patient, currently intubated, sedated, outpatient on scheduled Flovent and as needed albuterol, will continue as needed albuterol nebulizer treatments. 8. DVT prophylaxis: SCDs, Lovenox. Inpatient E&M: [id number] [facility] Hosp L3
[2020-12-26] MEDS: oxyCODONE 5 MG Tablet PO ×3 (08:53→22:17)
[2020-12-26] MEDS: Famotidine 20 MG Tablet PO ×2 (08:53→21:25)
[2020-12-26] MEDS: Enoxaparin 40 MG/0.4 ML Syringe SC (08:54)
[2020-12-26] MEDS: Insulin Lispro 100 UNIT/ML INSULN.PEN SC ×6 (08:55→21:22)
[2020-12-26] MEDS: 0.9% Saline Lock 10 ML Syringe IV (08:56)
[2020-12-26 11:09] LABS: Absolute Neutrophil Count 3.5 X10^3/uL (2.0-7.7); Basophil# 0.07 X10^3/uL; Basophil% 1.4 % (0-1); Eosinophil# 0.16 X10^3/uL; Eosinophils% 3.1 % (0-5); Hematocrit 34.2 % (40-54); Hemoglobin 12.1 g/dL (13.0-16.5); Lymphocyte % 17.7 % (19-41); Mean Corp Hgb Conc 35.4 g/dL (32-36); Mean Corpuscular Hgb 29.9 pg (27.0-32.0); Mean Corpuscular Volume 84.4 fL (80-94); Mean Platelet Vol. 9.3 fl (6.2-12.0); Monocyte# 0.38 X10^3/uL; Monocyte% 7.5 % (0-10); NRBC Flagged by Analyzer 0 % (0-5); Neutrophil # 3.54 X10^3/uL (2.7-7.7); Neutrophil % 69.7 % (47-70); Platelet Count 322 K/mm3 (150-450); RBC Distribution Width CV 11.5 % (11.6-14.6); RBC Distribution Width SD 35.3 fl (35.1-43.9); Red Blood Count 4.05 M/mm3 (4.6-6.2); White Blood Count 5.1 K/mm3 (4.4-11.0)
[2020-12-26 11:30] LABS: ALB/GLOB Ratio 0.7 RATIO (0.9-2.4); AST(SGOT) 16 U/L (15-37); Alanine Aminotransfer ALT/SGPT 15 U/L (16-61); Albumin, Serum 2.8 g/dL (3.2-5.0); Alkaline Phosphatase 98 U/L (45-117); Anion Gap 9 (5-15); BUN 11 mg/dL (7-18); BUN/Creat Ratio 13.5 RATIO (10-20); Calcium,Total 8.5 mg/dL (8.5-10.1); Chloride 98 mmol/L (98-107); Creatinine, Serum 0.82 mg/dL (0.70-1.30); EST Glomerular Filtration Rate 128 mL/min (>60); Est Glom Filt Rate - Afr Amer 155 mL/min (>60); Estimated Creatinine Clearance 145.73 ml/min; Globulin 3.8 g/dL (2.2-4.2); Glucose 280 mg/dL (74-106); Potassium 2.7 mmol/L (3.5-5.1); Protein, Total 6.6 g/dL (6.4-8.2); Sodium Level 136 mmol/L (136-145)
[2020-12-26] MEDS: Potassium Chloride Oral Tablet 20 MEQ 60 MEQ PO (12:50)
[2020-12-26 14:41] LABS: Bedside Glucose 274 mg/dL (70-110)
[2020-12-26 17:16] LABS: Anion Gap 6 (5-15); BUN 16 mg/dL (7-18); BUN/Creat Ratio 18.1 RATIO (10-20); Calcium,Total 8.3 mg/dL (8.5-10.1); Chloride 100 mmol/L (98-107); Creatinine, Serum 0.88 mg/dL (0.70-1.30); EST Glomerular Filtration Rate 117 mL/min (>60); Est Glom Filt Rate - Afr Amer 141 mL/min (>60); Glucose 324 mg/dL (74-106); Potassium 3.3 mmol/L (3.5-5.1); Sodium Level 135 mmol/L (136-145)
[2020-12-26 18:16] LABS: Bedside Glucose 276 mg/dL (70-110)
[2020-12-26 23:06] LABS: Bedside Glucose 283 mg/dL (70-110)
[2020-12-27] VITALS (8 sets, daily range): BP systolic 95–113; BP diastolic 46–72; PULSE 86–108; RESP 15–16; TEMP 36.6–37.1; O2SAT 98–100
[2020-12-27 01:52] LABS: Absolute Lymphocyte Count 1.24 X10^3/uL (0.83-4.51); Basophil# 0.06 X10^3/uL; Basophil% 1.5 % (0-1); Eosinophils% 5.1 % (0-5); Hematocrit 30.1 % (40-54); Hemoglobin 10.7 g/dL (13.0-16.5); Lymphocyte # 1.24 X10^3/ul (4.0); Lymphocyte % 31.5 % (19-41); Mean Corp Hgb Conc 35.5 g/dL (32-36); Mean Corpuscular Hgb 30.6 pg (27.0-32.0); Mean Platelet Vol. 9.2 fl (6.2-12.0); Monocyte# 0.42 X10^3/uL; Monocyte% 10.7 % (0-10); NRBC Flagged by Analyzer 0 % (0-5); Neutrophil % 50.7 % (47-70); Platelet Count 277 K/mm3 (150-450); RBC Distribution Width CV 11.6 % (11.6-14.6); RBC Distribution Width SD 35.5 fl (35.1-43.9); White Blood Count 3.9 K/mm3 (4.4-11.0)
[2020-12-27 02:05] LABS: Vancomycin, Trough Level 3.4 ug/mL (5.0-15.0)
[2020-12-27] MEDS: Vancomycin IV 1,000 MG/200 ML BAG 200 MG IV ×2 (02:48→10:41)
--- NOTE | 2020-12-27 02:57 | PCM.RX.CS ---
Consult Pharmacy has been consulted to manage selected antiobiotic: Vancomycin Type of Consult: Follow-up Labs: Vancomycin Trough 3.4 ug/mL (5.0-15.0) L 12/27/20 01:30 Microbiology: Microbiology 12/24/20 Unknown Wound Abcess - Leg, Left Gram Stain - Final 12/24/20 Unknown Wound Abcess - Leg, Left Wound Culture - Preliminary Possible Fungus Gram negative jo ann 12/24/20 11:15 Wound - Leg, Left Gram Stain - Final 12/24/20 11:15 Wound - Leg, Left Wound Culture - Final No growth aerobically. 12/24/20 05:45 Urine Catheter - Catheter Urine Culture - Final Culture exhibits no growth. 12/24/20 05:30 Blood Culture (Wb) - Anticubital Right Blood Culture - Preliminary No growth in 48 hours. 12/24/20 05:35 Blood Culture (Wb) - Anticubital Left Blood Culture - Preliminary No growth in 48 hours. 12/24/20 12:45 Mucosa - Nasopharyngeal SARS-CoV-2 Antigen (Rapid) - Final Pharmacy Plan for Drug Dosing: Pharmacy Service will continue to monitor and adjust dosing as required. PREVIOUS DOSE NOT GIVEN TROUGH 3.4. REDRAW TROUGH 12/28 @ 0130 AND REEVALUATE Follow-Up Labs: Trough Vancomycin Labs to be done on [date and time ordered]: 12/28 @ 013
[2020-12-27 03:11] LABS: ALB/GLOB Ratio 0.8 RATIO (0.9-2.4); AST(SGOT) 12 U/L (15-37); Alanine Aminotransfer ALT/SGPT 14 U/L (16-61); Albumin, Serum 2.5 g/dL (3.2-5.0); Alkaline Phosphatase 78 U/L (45-117); Anion Gap 5 (5-15); BUN 12 mg/dL (7-18); BUN/Creat Ratio 18.8 RATIO (10-20); Calcium,Total 8.3 mg/dL (8.5-10.1); Chloride 101 mmol/L (98-107); Creatinine, Serum 0.64 mg/dL (0.70-1.30); EST Glomerular Filtration Rate 169 mL/min (>60); Est Glom Filt Rate - Afr Amer 205 mL/min (>60); Estimated Creatinine Clearance 186.72 ml/min; Globulin 3.1 g/dL (2.2-4.2); Glucose 255 mg/dL (74-106); Potassium 2.9 mmol/L (3.5-5.1); Prealbumin 10.1 mg/dL (20.0-40.0); Protein, Total 5.6 g/dL (6.4-8.2); Sodium Level 138 mmol/L (136-145)
[2020-12-27] MEDS: Potassium Chloride Oral Tablet 20 MEQ 40 MEQ PO ×2 (04:20→08:14)
[2020-12-27] MEDS: Potassium Chloride 10mEq/100mL 10 MEQ/100 ML IV.SOLN. 100 MEQ IV BOLUS (04:33)
[2020-12-27 06:31] LABS: Bedside Glucose 151 mg/dL (70-110)
[2020-12-27] MEDS: Famotidine 20 MG Tablet PO ×2 (08:15→21:32)
[2020-12-27] MEDS: Insulin Lispro 100 UNIT/ML INSULN.PEN SC ×6 (08:17→21:40)
--- NOTE | 2020-12-27 10:30 | CASEMGMT ---
SW spoke with patient. He was on the phone with his mom, but he said SW can go ahead and talk. SW confirmed his plan is to go to a SNF for wound care. Patient was provided a list of SNF providers including quality and resource use data and consistent with the patient?s preferred geographic region, medical needs, and insurance network. SW told him he needs to pick three places he would be willing to go to and SW will take care of it from there. SW told him SW will check back in a little bit. Marie KRUGER MSW
[2020-12-27] MEDS: Menthol/Lanolin/Calamine/Znox 113 GM Tube 1 APPLIC TOPICAL ×2 (10:41→15:31)
[2020-12-27] MEDS: Enoxaparin 40 MG/0.4 ML Syringe SC (10:41)
[2020-12-27] MEDS: oxyCODONE 5 MG Tablet PO ×3 (10:56→21:47)
--- NOTE | 2020-12-27 11:13 | CASEMGMT ---
SW checked back with patient to see if he has decided on facilities. He said he has not as he is waiting on his grandma. He thinks she is coming in to see him. SW told him if they have any questions they can always ask for Social Work. SW will check back again in a little bit. Marie KRUGER MSW
[2020-12-27 11:20] LABS: Bedside Glucose 307 mg/dL (70-110)
--- NOTE | 2020-12-27 13:17 | PCM.PROGNOTE ---
<Imelda Lindsay ADMINISTRATIVE TECH - Last Filed: 12/27/20 13:31> Patient Problems: Active and Suspected Problems (Last Reviewed 10/27/20 @ 11:[address] Will Mason MD) Diabetic ketoacidosis associated with type 1 diabetes mellitus (Acute) Abscess of left thigh (Acute) Nonhealing surgical wound (Acute) Left thigh Uncontrolled type 1 diabetes mellitus (Acute) Noncompliance (Acute) Severe sepsis (Acute) Subjective: Patient seen and examined. Flat affect. Denies current symptoms or complaints. Agreeable to rehab at discharge. Wound VAC to be placed today. - Physical Exam Vitals/I&O's: Vital Signs Temp Pulse Resp BP Pulse Ox 98.3 F 108 H 15 111/72 100 12/27/20 10:47 12/27/20 11:51 12/27/20 10:47 12/27/20 10:47 12/27/20 10:47 Oxygen Flow Rate (L/min) 15 Oxygen Delivery Method Room Air Weight: 174 lb 9.698 oz Body Mass Index (BMI) 20.0 Finger Stick Blood Glucose 138 Intake and Output for Last 24 Hours 12/25/20 12/26/20 12/27/20 23:59 23:59 23:59 Intake Total 8142.84 / 8142.84 1270 / 1510 840 / 840 Output Total 7730 / 7730 2950 / 2950 1800 / 1800 Balance 412.84 / 412.84 -1680 / -1440 -960 / -960 General: Alert, Oriented x3, Cooperative HEENT: Atraumatic, PERRLA, EOMI, Normocephalic Neck: Supple, No JVD, Negative Carotid Bruits Lungs: Clear to auscultation, Normal air movement Cardiovascular: Regular rate, No murmurs Abdomen: Bowel Sounds Present, Soft, Non Tender, Non-Distended Extremities: No clubbing, No cyanosis, No edema, Capillary Refill Less than 3 Seconds Skin: - - Left lower extremity dressing intact Musculoskeletal: No Tenderness to Palpation of Joints or Extremities Neurological: Cranial nerves II-XII grossly intact, Neuro grossly intact Psych/Mental Status: Normal Affect, Appropriate Microbiology Past 72 Hours 12/24/20 Unknown Wound Abcess - Leg, Left Gram Stain - Final 12/24/20 Unknown Wound Abcess - Leg, Left Wound Culture - Preliminary Possible Fungus Klebsiella pneumoniae sp pneum 12/24/20 Unknown Wound Abcess - Leg, Left Anaerobic Culture - Preliminary Checking for anaerobes, further studies to follow. 12/24/20 11:15 Wound - Leg, Left Gram Stain - Final 12/24/20 11:15 Wound - Leg, Left Wound Culture - Final No growth aerobically. 12/24/20 11:15 Wound - Leg, Left Anaerobic Culture - Preliminary Checking for anaerobes, further studies to follow. 12/24/20 05:45 Urine Catheter - Catheter Urine Culture - Final Culture exhibits no growth. 12/24/20 05:30 Blood Culture (Wb) - Anticubital Right Blood Culture - Preliminary No growth in 48 hours. 12/24/20 05:35 Blood Culture (Wb) - Anticubital Left Blood Culture - Preliminary No growth in 48 hours. 12/24/20 12:45 Mucosa - Nasopharyngeal SARS-CoV-2 Antigen (Rapid) - Final Laboratory Results 12/26/20 11:28: POC Glucose 274 H 12/26/20 16:56: Sodium 135 L, Potassium 3.3 L, Chloride 100, Carbon Dioxide 29.0, Anion Gap 6, BUN 16, Creatinine 0.88, Estim Creat Clear Calc 135.80, Est GFR (MDRD) Af Amer 141, Est GFR (MDRD) Non-Af 117, BUN/Creatinine Ratio 18.1, Glucose 324 H, Calcium 8.3 L 12/26/20 17:29: POC Glucose 276 H 12/26/20 21:16: POC Glucose 283 H 12/27/20 01:30: WBC 3.9 L, RBC 3.50 L, Hgb 10.7 L, Hct 30.1 L, MCV 86.0, MCH 30.6, MCHC 35.5, RDW Std Deviation 35.5, RDW Coeff of Rabia 11.6, Plt Count 277, MPV 9.2, Immature Gran % (Auto) 0.500, Neut % (Auto) 50.7, Lymph % (Auto) 31.5, Benton % (Auto) 10.7 H, Eos % (Auto) 5.1 H, Baso % (Auto) 1.5 H, Absolute Neuts (auto) 2.0, Absolute Lymphs (auto) 1.24, Nucleated RBC % 0 12/27/20 01:30: Sodium 138, Potassium 2.9 L, Chloride 101, Carbon Dioxide 32.0, Anion Gap 5, BUN 12, Creatinine 0.64 L, Estim Creat Clear Calc 186.72, Est GFR (MDRD) Af Amer 205, Est GFR (MDRD) Non-Af 169, BUN/Creatinine Ratio 18.8, Glucose 255 H, Calcium 8.3 L, Total Bilirubin 0.50, AST 12 L, ALT 14 L, Alkaline Phosphatase 78, Total Protein 5.6 L, Albumin 2.5 L, Globulin 3.1, Albumin/Globulin Ratio 0.8 L, Prealbumin 10.1 L 12/27/20 01:30: Vancomycin Trough 3.4 L 12/27/20 06:00: POC Glucose 151 H 12/27/20 10:59: POC Glucose 307 H Current Medications Acetaminophen (Acetaminophen 650 Mg/20 Ml Udc) 650 mg PO Q6H PRN PRN PRN Reason: Pain Score 1-3 /Temp>100.7 Al Hydroxide/Mg Hydroxide (Mag Hydrox/Al Hydrox/Simeth 30 Ml Udc) 30 ml PO Q6H PRN PRN PRN Reason: Gastric Burning Albuterol Sulfate (Albuterol 2.5 Mg/3 Ml Vial.Neb.) 2.5 mg INHALATION Q2H PRN PRN PRN Reason: Dyspnea, wheezing Bisacodyl (Bisacodyl 5 Mg Tablet) 10 mg PO DAILY PRN PRN PRN Reason: Constipation Calamine/Phenol (Menthol/Lanolin/Calamine/Znox 113 Gm Tube) 1 applic TOPICAL TID [facility]; Protocol Last Admin: 12/27/20 10:41 Dose: 1 applicatio Documented by: Chlorhexidine Gluconate (Chlorhexidine Gluc 2% Cloth 1 Each Towelette) 1 each TOPICAL DAILY [facility] Last Admin: 12/27/20 08:14 Dose: Not Given Documented by: Dextrose (Dextrose 50%-Water 25 Gm/50 Ml Disp.Syrin) 0 gm IV X1 PRN; Protocol PRN Reason: HYPOGLYCEMIA Dextrose (Dextrose 50%-Water 25 Gm/50 Ml Disp.Syrin) 0 gm IV X1 PRN; Protocol PRN Reason: Hypoglycemia Docusate Sodium (Docusate Sodium 100 Mg Capsule) 200 mg PO BID PRN PRN PRN Reason: Constipation Doxycycline Monohydrate (Doxycycline 100 Mg Capsule) 100 mg PO BID [facility] Enoxaparin Sodium (Enoxaparin 40 Mg/0.4 Ml Syringe) 40 mg SC DAILY [facility] Last Admin: 12/27/20 10:41 Dose: 40 mg Documented by: Famotidine (Famotidine 20 Mg Tablet) 20 mg PO BID [facility] Last Admin: 12/27/20 08:15 Dose: 20 mg Documented by: Glucagon (Glucagon 1 Mg/Ml Syringe) 1 mg IM .X1 PRN PRN Reason: Hypoglycemia Hydralazine HCl (Hydralazine 20 Mg/Ml Vial) 10 mg IV Q4H PRN PRN PRN Reason: SBP > 160 Sodium Chloride () 250 mls @ 15 mls/hr IV .[id number] PRN PRN Reason: Saline Flush Sodium Chloride () 250 mls @ 15 mls/hr IV .[id number] PRN PRN Reason: Additional IVPB Infusion Last Admin: 12/27/20 12:22 Dose: 15 mls/hr Documented by: Ampicillin Sodium/Sulbactam (Sodium 3 gm/ Sodium Chloride) 112 mls @ 150 mls/hr IV Q8 [facility] Fluconazole (Diflucan) 200 mg in 100 mls @ 100 mls/hr IV Q24 [facility] Insulin Glargine (Insulin Glargine 100 Units/Ml Pen) 35 units SC BID [facility] Last Admin: 12/27/20 10:42 Dose: 35 u Documented by: Insulin Human Lispro (Insulin Lispro 100 Unit/Ml Insuln.Pen) 0 unit SC ACHS [facility]; Protocol Last Admin: 12/27/20 11:00 Dose: 9 units Documented by: Insulin Human Lispro (Insulin Lispro 100 Unit/Ml Insuln.Pen) 5 unit SC TIDAC [facility] Last Admin: 12/27/20 11:01 Dose: 5 u Documented by: Morphine Sulfate (Morphine 2 Mg/Ml Syringe) 2 - 4 mg IV Q4H PRN PRN PRN Reason: Pain Score 6-10 Morphine Sulfate (Morphine 4 Mg/Ml Syringe) 2 - 4 mg IV Q4H PRN PRN PRN Reason: Pain Score 6-10 Nutritional Formula (Lactose Free) (Glucerna Shake 120 Ml Liquid) 120 ml PO 4X/DAY [facility] Last Admin: 12/27/20 08:20 Dose: Not Given Documented by: Ondansetron HCl (Ondansetron 4 Mg/2 Ml Vial) 4 mg IV Q8H PRN PRN PRN Reason: Nausea Oxycodone HCl (Oxycodone 5 Mg Tablet) 5 mg PO Q4H PRN PRN PRN Reason: Pain Score 6-10 Last Admin: 12/27/20 10:56 Dose: 5 mg Documented by: Polyethylene Glycol (Polyethylene Glycol 3350 17 Gm Packet) 17 gm PO DAILY [facility] Last Admin: 12/27/20 10:39 Dose: Not Given Documented by: Prochlorperazine Edisylate (Prochlorperazine 10 Mg/2 Ml Vial) 10 mg IV Q6H PRN PRN PRN Reason: Nausea/Vomiting Sodium Chloride (0.9% Saline Lock 10 Ml Syringe) 10 - 40 ml IV UD PRN PRN Reason: SALINE FLUSH Last Admin: 12/26/20 08:56 Dose: 30 ml Documented by: Medical Necessity - Tobacco Use Smoking Status: Never smoker Assessment/Plan All Active Problems (Last Reviewed 10/27/20 @ 11:[address] Will Mason MD) Diabetic ketoacidosis associated with type 1 diabetes mellitus (Acute) Abscess of left thigh (Acute) Nonhealing surgical wound (Acute) Uncontrolled type 1 diabetes mellitus (Acute) Noncompliance (Acute) Severe sepsis (Acute) 1. Acute hypoxic respiratory failure, multifactorial secondary to acute severe sepsis as a result of acute left thigh infected wound and DKA in the setting of uncontrolled type 1 diabetes mellitus-extubated 12/25/2020. Oxygen remained stable on room air. 2. Severe sepsis secondary to acute left thigh nonhealing necrotic infected wound-OR 12/24/2020 for I&D-ID and plastics following. Wound culture growing Klebsiella and possible fungus. Blood culture showed no growth. Wound VAC to be placed 12/27/2020. On IV Unasyn and oral doxycycline. Continue antibiotics per ID recommendations. 3. DKA with type 1 diabetes mellitus-noncompliant history. Hemoglobin A1c greater than 14%. Lantus 35 units twice daily. Sliding scale insulin. Increase scheduled Humalog to 10 units 3 times daily. Blood sugar continues to fluctuate, adjust as necessary. 4. Acute kidney injury-resolved. 5. Hypokalemia-replace per protocol, trend BMP. 6. Acute encephalopathy-resolved following treatment of #1/#2/#3. 7. GERD-on PPI. 8. History of asthma-as needed albuterol aerosol. DVT prophylaxis- Lovenox sc Discharge planning: SNF pending acceptance. This patient was seen by BETSY Campbell under the supervision of Dr. Stanley. <JadenMendy E - Last Filed: 12/27/20 14:01> - Physical Exam Vitals/I&O's: Vital Signs Temp Pulse Resp BP Pulse Ox 98.3 F 108 H 15 111/72 100 12/27/20 10:47 12/27/20 11:51 12/27/20 10:47 12/27/20 10:47 12/27/20 10:47 Oxygen Flow Rate (L/min) 15 Oxygen Delivery Method Room Air Weight: 174 lb 9.698 oz Body Mass Index (BMI) 20.0 Finger Stick Blood Glucose 138 Intake and Output for Last 24 Hours 12/25/20 12/26/20 12/27/20 23:59 23:59 23:59 Intake Total 8142.84 / 8142.84 1270 / 1510 840 / 840 Output Total 7730 / 7730 2950 / 2950 1800 / 1800 Balance 412.84 / 412.84 -1680 / -1440 -960 / -960 Microbiology Past 72 Hours 12/24/20 Unknown Wound Abcess - Leg, Left Gram Stain - Final 12/24/20 Unknown Wound Abcess - Leg, Left Wound Culture - Preliminary Possible Fungus Klebsiella pneumoniae sp pneum 12/24/20 Unknown Wound Abcess - Leg, Left Anaerobic Culture - Preliminary Checking for anaerobes, further studies to follow. 12/24/20 11:15 Wound - Leg, Left Gram Stain - Final 12/24/20 11:15 Wound - Leg, Left Wound Culture - Final No growth aerobically. 12/24/20 11:15 Wound - Leg, Left Anaerobic Culture - Preliminary Checking for anaerobes, further studies to follow. 12/24/20 05:45 Urine Catheter - Catheter Urine Culture - Final Culture exhibits no growth. 12/24/20 05:30 Blood Culture (Wb) - Anticubital Right Blood Culture - Preliminary No growth in 48 hours. 12/24/20 05:35 Blood Culture (Wb) - Anticubital Left Blood Culture - Preliminary No growth in 48 hours. 12/24/20 12:45 Mucosa - Nasopharyngeal SARS-CoV-2 Antigen (Rapid) - Final Laboratory Results 12/26/20 11:28: POC Glucose 274 H 12/26/20 16:56: Sodium 135 L, Potassium 3.3 L, Chloride 100, Carbon Dioxide 29.0, Anion Gap 6, BUN 16, Creatinine 0.88, Estim Creat Clear Calc 135.80, Est GFR (MDRD) Af Amer 141, Est GFR (MDRD) Non-Af 117, BUN/Creatinine Ratio 18.1, Glucose 324 H, Calcium 8.3 L 12/26/20 17:29: POC Glucose 276 H 12/26/20 21:16: POC Glucose 283 H 12/27/20 01:30: WBC 3.9 L, RBC 3.50 L, Hgb 10.7 L, Hct 30.1 L, MCV 86.0, MCH 30.6, MCHC 35.5, RDW Std Deviation 35.5, RDW Coeff of Rabia 11.6, Plt Count 277, MPV 9.2, Immature Gran % (Auto) 0.500, Neut % (Auto) 50.7, Lymph % (Auto) 31.5, Benton % (Auto) 10.7 H, Eos % (Auto) 5.1 H, Baso % (Auto) 1.5 H, Absolute Neuts (auto) 2.0, Absolute Lymphs (auto) 1.24, Nucleated RBC % 0 12/27/20 01:30: Sodium 138, Potassium 2.9 L, Chloride 101, Carbon Dioxide 32.0, Anion Gap 5, BUN 12, Creatinine 0.64 L, Estim Creat Clear Calc 186.72, Est GFR (MDRD) Af Amer 205, Est GFR (MDRD) Non-Af 169, BUN/Creatinine Ratio 18.8, Glucose 255 H, Calcium 8.3 L, Total Bilirubin 0.50, AST 12 L, ALT 14 L, Alkaline Phosphatase 78, Total Protein 5.6 L, Albumin 2.5 L, Globulin 3.1, Albumin/Globulin Ratio 0.8 L, Prealbumin 10.1 L 12/27/20 01:30: Vancomycin Trough 3.4 L 12/27/20 06:00: POC Glucose 151 H 12/27/20 10:59: POC Glucose 307 H Current Medications Acetaminophen (Acetaminophen 650 Mg/20 Ml Udc) 650 mg PO Q6H PRN PRN PRN Reason: Pain Score 1-3 /Temp>100.7 Al Hydroxide/Mg Hydroxide (Mag Hydrox/Al Hydrox/Simeth 30 Ml Udc) 30 ml PO Q6H PRN PRN PRN Reason: Gastric Burning Albuterol Sulfate (Albuterol 2.5 Mg/3 Ml Vial.Neb.) 2.5 mg INHALATION Q2H PRN PRN PRN Reason: Dyspnea, wheezing Bisacodyl (Bisacodyl 5 Mg Tablet) 10 mg PO DAILY PRN PRN PRN Reason: Constipation Calamine/Phenol (Menthol/Lanolin/Calamine/Znox 113 Gm Tube) 1 applic TOPICAL TID [facility]; Protocol Last Admin: 12/27/20 10:41 Dose: 1 applicatio Documented by: Chlorhexidine Gluconate (Chlorhexidine Gluc 2% Cloth 1 Each Towelette) 1 each TOPICAL DAILY [facility] Last Admin: 12/27/20 08:14 Dose: Not Given Documented by: Dextrose (Dextrose 50%-Water 25 Gm/50 Ml Disp.Syrin) 0 gm IV X1 PRN; Protocol PRN Reason: HYPOGLYCEMIA Dextrose (Dextrose 50%-Water 25 Gm/50 Ml Disp.Syrin) 0 gm IV X1 PRN; Protocol PRN Reason: Hypoglycemia Docusate Sodium (Docusate Sodium 100 Mg Capsule) 200 mg PO BID PRN PRN PRN Reason: Constipation Doxycycline Monohydrate (Doxycycline 100 Mg Capsule) 100 mg PO BID [facility] Enoxaparin Sodium (Enoxaparin 40 Mg/0.4 Ml Syringe) 40 mg SC DAILY [facility] Last Admin: 12/27/20 10:41 Dose: 40 mg Documented by: Famotidine (Famotidine 20 Mg Tablet) 20 mg PO BID [facility] Last Admin: 12/27/20 08:15 Dose: 20 mg Documented by: Glucagon (Glucagon 1 Mg/Ml Syringe) 1 mg IM .X1 PRN PRN Reason: Hypoglycemia Hydralazine HCl (Hydralazine 20 Mg/Ml Vial) 10 mg IV Q4H PRN PRN PRN Reason: SBP > 160 Sodium Chloride () 250 mls @ 15 mls/hr IV .[id number] PRN PRN Reason: Saline Flush Sodium Chloride () 250 mls @ 15 mls/hr IV .[id number] PRN PRN Reason: Additional IVPB Infusion Last Admin: 12/27/20 12:22 Dose: 15 mls/hr Documented by: Ampicillin Sodium/Sulbactam (Sodium 3 gm/ Sodium Chloride) 112 mls @ 150 mls/hr IV Q8 [facility] Fluconazole (Diflucan) 200 mg in 100 mls @ 100 mls/hr IV Q24 [facility] Insulin Glargine (Insulin Glargine 100 Units/Ml Pen) 35 units SC BID [facility] Last Admin: 12/27/20 10:42 Dose: 35 u Documented by: Insulin Human Lispro (Insulin Lispro 100 Unit/Ml Insuln.Pen) 0 unit SC ACHS [facility]; Protocol Last Admin: 12/27/20 11:00 Dose: 9 units Documented by: Insulin Human Lispro (Insulin Lispro 100 Unit/Ml Insuln.Pen) 10 unit SC TIDAC [facility] Morphine Sulfate (Morphine 2 Mg/Ml Syringe) 2 - 4 mg IV Q4H PRN PRN PRN Reason: Pain Score 6-10 Morphine Sulfate (Morphine 4 Mg/Ml Syringe) 2 - 4 mg IV Q4H PRN PRN PRN Reason: Pain Score 6-10 Nutritional Formula (Lactose Free) (Glucerna Shake 120 Ml Liquid) 120 ml PO 4X/DAY [facility] Last Admin: 12/27/20 08:20 Dose: Not Given Documented by: Ondansetron HCl (Ondansetron 4 Mg/2 Ml Vial) 4 mg IV Q8H PRN PRN PRN Reason: Nausea Oxycodone HCl (Oxycodone 5 Mg Tablet) 5 mg PO Q4H PRN PRN PRN Reason: Pain Score 6-10 Last Admin: 12/27/20 10:56 Dose: 5 mg Documented by: Polyethylene Glycol (Polyethylene Glycol 3350 17 Gm Packet) 17 gm PO DAILY [facility] Last Admin: 12/27/20 10:39 Dose: Not Given Documented by: Prochlorperazine Edisylate (Prochlorperazine 10 Mg/2 Ml Vial) 10 mg IV Q6H PRN PRN PRN Reason: Nausea/Vomiting Sodium Chloride (0.9% Saline Lock 10 Ml Syringe) 10 - 40 ml IV UD PRN PRN Reason: SALINE FLUSH Last Admin: 12/26/20 08:56 Dose: 30 ml Documented by: Assessment/Plan Hospitalist note: I am seeing this patient in conjunction with Imelda Lindsay. I independently seen and examined the patient. Progress note above, laboratory data and imaging studies reviewed and I concur with above treatment plan. Today, no significant complaints apart from mild left thigh pain which is manageable. Wound VAC was placed today. He has been afebrile, vital signs are stable. - Physical Exam General: Alert, Oriented x3, Cooperative, No apparent distress. HEENT: Atraumatic, PERRLA, EOMI. Neck: Supple, No JVD, Negative Carotid Bruits, Trachea Midline, Thyroid Normal. Lungs: Diminished breath sounds bilateral, otherwise clear no rhonchi, No wheeze, No rales. Cardiovascular: Regular rate, Regular Rhythm, Normal S1, Normal S2, PMI Normal. Abdomen: Bowel Sounds Present, Soft, Non Tender, Non-Distended, No Hepato-splenomegaly. Extremities: No clubbing, No cyanosis, No edema. Left thigh dressed. Skin: No rashes, No breakdown Neurological: Cranial nerves are intact, neuro grossly intact Vital Signs are stable. Assessment and plan: #1 acute left thigh nonhealing necrotic infected ulcer/wound with surrounding cellulitis/severe sepsis: Status post incision, drainage and excisional debridement, postoperative day 3. He is on IV Unasyn and doxycycline. Wound culture revealed Klebsiella pneumonia and possible fungus. Blood culture showed no growth in 48 hours. Plastic surgery on the case. Infectious disease consulted. Plan to continue same treatment. #2 acute hypoxic respiratory failure: Attributed to severe sepsis and DKA, status post extubation. Respiratory status stabilized, resolved. Currently, he is on room air with pulse ox of 100%. #3 DKA: In the setting of uncontrolled type 1 diabetes mellitus, patient is noncompliant. Hemoglobin A1c was greater than 14%. He is on Lantus and sliding scale. #4 acute kidney injury: Secondary to severe sepsis and infection, resolved. #5 acute encephalopathy: Likely metabolic, resolved. Today, patient is alert and noted x3. #6 other chronic medical problems: Stable, continue current medications as above. This note was generated with etriggation software. It may contain incorrect words, spelling, and punctuation that were not noted in checking the note before signing. Inpatient E&M: 68929 Subs Hosp L2
--- NOTE | 2020-12-27 13:30 | CASEMGMT ---
Patient's grandma is here at [facility]. VERNON checked in with patient and his grandma. Patient's grandma said [facility] would be their first choice. She would continue to look at the list to pick a few other options if [facility] does not work out. VERNON told them VERNON will get back with them as soon as VERNON hears back from [place]. VERNON faxed referral to [facility] and also called S[facility] and left her a voice mail. Marie KRUGER MSW
--- NOTE | 2020-12-27 15:01 | PCM.PN.ID ---
Patient Problems: Active and Suspected Problems (Last Reviewed 10/27/20 @ 11:[address] Will Mason MD) Diabetic ketoacidosis associated with type 1 diabetes mellitus (Acute) Abscess of left thigh (Acute) Nonhealing surgical wound (Acute) Left thigh Uncontrolled type 1 diabetes mellitus (Acute) Noncompliance (Acute) Severe sepsis (Acute) Subjective: Feeling ok, no fever, no n/v/d - Physical Exam Vitals/I&O's: Vital Signs Temp Pulse Resp BP Pulse Ox 98.3 F 108 H 15 111/72 100 12/27/20 10:47 12/27/20 11:51 12/27/20 10:47 12/27/20 10:47 12/27/20 10:47 Oxygen Flow Rate (L/min) 15 Oxygen Delivery Method Room Air Weight: 79.2 kg Body Mass Index (BMI) 20.0 Finger Stick Blood Glucose 138 Intake and Output for Last 24 Hours 12/25/20 12/26/20 12/27/20 23:59 23:59 23:59 Intake Total 8142.84 / 8142.84 1270 / 1510 840 / 840 Output Total 7730 / 7730 2950 / 2950 1800 / 1800 Balance 412.84 / 412.84 -1680 / -1440 -960 / -960 General: Alert, Cooperative, No apparent distress Lungs: Clear to auscultation, Normal air movement Cardiovascular: Regular rate, Regular Rhythm Abdomen: Soft, Non Tender, Non-Distended Skin: Ulcer/ Wound - bandaged Microbiology Past 72 Hours 12/24/20 Unknown Wound Abcess - Leg, Left Gram Stain - Final 12/24/20 Unknown Wound Abcess - Leg, Left Wound Culture - Preliminary Possible Fungus Klebsiella pneumoniae sp pneum 12/24/20 Unknown Wound Abcess - Leg, Left Anaerobic Culture - Preliminary Checking for anaerobes, further studies to follow. 12/24/20 11:15 Wound - Leg, Left Gram Stain - Final 12/24/20 11:15 Wound - Leg, Left Wound Culture - Final No growth aerobically. 12/24/20 11:15 Wound - Leg, Left Anaerobic Culture - Preliminary Checking for anaerobes, further studies to follow. 12/24/20 05:45 Urine Catheter - Catheter Urine Culture - Final Culture exhibits no growth. 12/24/20 05:30 Blood Culture (Wb) - Anticubital Right Blood Culture - Preliminary No growth in 48 hours. 12/24/20 05:35 Blood Culture (Wb) - Anticubital Left Blood Culture - Preliminary No growth in 48 hours. 12/24/20 12:45 Mucosa - Nasopharyngeal SARS-CoV-2 Antigen (Rapid) - Final Laboratory Results 12/26/20 16:56: Sodium 135 L, Potassium 3.3 L, Chloride 100, Carbon Dioxide 29.0, Anion Gap 6, BUN 16, Creatinine 0.88, Estim Creat Clear Calc 135.80, Est GFR (MDRD) Af Amer 141, Est GFR (MDRD) Non-Af 117, BUN/Creatinine Ratio 18.1, Glucose 324 H, Calcium 8.3 L 12/26/20 17:29: POC Glucose 276 H 12/26/20 21:16: POC Glucose 283 H 12/27/20 01:30: WBC 3.9 L, RBC 3.50 L, Hgb 10.7 L, Hct 30.1 L, MCV 86.0, MCH 30.6, MCHC 35.5, RDW Std Deviation 35.5, RDW Coeff of Rabia 11.6, Plt Count 277, MPV 9.2, Immature Gran % (Auto) 0.500, Neut % (Auto) 50.7, Lymph % (Auto) 31.5, [place] % (Auto) 10.7 H, Eos % (Auto) 5.1 H, Baso % (Auto) 1.5 H, Absolute Neuts (auto) 2.0, Absolute Lymphs (auto) 1.24, Nucleated RBC % 0 12/27/20 01:30: Sodium 138, Potassium 2.9 L, Chloride 101, Carbon Dioxide 32.0, Anion Gap 5, BUN 12, Creatinine 0.64 L, Estim Creat Clear Calc 186.72, Est GFR (MDRD) Af Amer 205, Est GFR (MDRD) Non-Af 169, BUN/Creatinine Ratio 18.8, Glucose 255 H, Calcium 8.3 L, Total Bilirubin 0.50, AST 12 L, ALT 14 L, Alkaline Phosphatase 78, Total Protein 5.6 L, Albumin 2.5 L, Globulin 3.1, Albumin/Globulin Ratio 0.8 L, Prealbumin 10.1 L 12/27/20 01:30: Vancomycin Trough 3.4 L 12/27/20 06:00: POC Glucose 151 H 12/27/20 10:59: POC Glucose 307 H Current Medications Acetaminophen (Acetaminophen 650 Mg/20 Ml Udc) 650 mg PO Q6H PRN PRN PRN Reason: Pain Score 1-3 /Temp>100.7 Al Hydroxide/Mg Hydroxide (Mag Hydrox/Al Hydrox/Simeth 30 Ml Udc) 30 ml PO Q6H PRN PRN PRN Reason: Gastric Burning Albuterol Sulfate (Albuterol 2.5 Mg/3 Ml Vial.Neb.) 2.5 mg INHALATION Q2H PRN PRN PRN Reason: Dyspnea, wheezing Bisacodyl (Bisacodyl 5 Mg Tablet) 10 mg PO DAILY PRN PRN PRN Reason: Constipation Calamine/Phenol (Menthol/Lanolin/Calamine/Znox 113 Gm Tube) 1 applic TOPICAL TID [facility]; Protocol Last Admin: 12/27/20 10:41 Dose: 1 applicatio Documented by: Chlorhexidine Gluconate (Chlorhexidine Gluc 2% Cloth 1 Each [place]) 1 each TOPICAL DAILY [facility] Last Admin: 12/27/20 08:14 Dose: Not Given Documented by: Dextrose (Dextrose 50%-Water 25 Gm/50 Ml Disp.Syrin) 0 gm IV X1 PRN; Protocol PRN Reason: HYPOGLYCEMIA Dextrose (Dextrose 50%-Water 25 Gm/50 Ml Disp.Syrin) 0 gm IV X1 PRN; Protocol PRN Reason: Hypoglycemia Docusate Sodium (Docusate Sodium 100 Mg Capsule) 200 mg PO BID PRN PRN PRN Reason: Constipation Doxycycline Monohydrate (Doxycycline 100 Mg Capsule) 100 mg PO BID [facility] Enoxaparin Sodium (Enoxaparin 40 Mg/0.4 Ml Syringe) 40 mg SC DAILY [facility] Last Admin: 12/27/20 10:41 Dose: 40 mg Documented by: Famotidine (Famotidine 20 Mg Tablet) 20 mg PO BID [facility] Last Admin: 12/27/20 08:15 Dose: 20 mg Documented by: Glucagon (Glucagon 1 Mg/Ml Syringe) 1 mg IM .X1 PRN PRN Reason: Hypoglycemia Hydralazine HCl (Hydralazine 20 Mg/Ml Vial) 10 mg IV Q4H PRN PRN PRN Reason: SBP > 160 Sodium Chloride () 250 mls @ 15 mls/hr IV .[id number] PRN PRN Reason: Saline Flush Sodium Chloride () 250 mls @ 15 mls/hr IV .[id number] PRN PRN Reason: Additional IVPB Infusion Last Admin: 12/27/20 12:22 Dose: 15 mls/hr Documented by: Ampicillin Sodium/Sulbactam (Sodium 3 gm/ Sodium Chloride) 112 mls @ 150 mls/hr IV Q8 [facility] Fluconazole (Diflucan) 200 mg in 100 mls @ 100 mls/hr IV Q24 [facility] Insulin Glargine (Insulin Glargine 100 Units/Ml Pen) 35 units SC BID [facility] Last Admin: 12/27/20 10:42 Dose: 35 u Documented by: Insulin Human Lispro (Insulin Lispro 100 Unit/Ml Insuln.Pen) 0 unit SC ACHS [facility]; Protocol Last Admin: 12/27/20 11:00 Dose: 9 units Documented by: Insulin Human Lispro (Insulin Lispro 100 Unit/Ml Insuln.Pen) 10 unit SC TIDAC [facility] Morphine Sulfate (Morphine 2 Mg/Ml Syringe) 2 - 4 mg IV Q4H PRN PRN PRN Reason: Pain Score 6-10 Morphine Sulfate (Morphine 4 Mg/Ml Syringe) 2 - 4 mg IV Q4H PRN PRN PRN Reason: Pain Score 6-10 Nutritional Formula (Lactose Free) (Glucerna Shake 120 Ml Liquid) 120 ml PO 4X/DAY [facility] Last Admin: 12/27/20 08:20 Dose: Not Given Documented by: Ondansetron HCl (Ondansetron 4 Mg/2 Ml Vial) 4 mg IV Q8H PRN PRN PRN Reason: Nausea Oxycodone HCl (Oxycodone 5 Mg Tablet) 5 mg PO Q4H PRN PRN PRN Reason: Pain Score 6-10 Last Admin: 12/27/20 10:56 Dose: 5 mg Documented by: Polyethylene Glycol (Polyethylene Glycol 3350 17 Gm Packet) 17 gm PO DAILY [facility] Last Admin: 12/27/20 10:39 Dose: Not Given Documented by: Prochlorperazine Edisylate (Prochlorperazine 10 Mg/2 Ml Vial) 10 mg IV Q6H PRN PRN PRN Reason: Nausea/Vomiting Sodium Chloride (0.9% Saline Lock 10 Ml Syringe) 10 - 40 ml IV UD PRN PRN Reason: SALINE FLUSH Last Admin: 12/26/20 08:56 Dose: 30 ml Documented by: Medical Necessity - Tobacco Use Smoking Status: Never smoker Route of nutrition/ use of supplements: [] Nutritional Intake: [] IV Site: [] Youssef Catheter: [] - Assessment/Plan Antibiotics: [] Assessment/Plan: [] Active and Suspected Problems (Last Reviewed 10/27/20 @ 11:[address] 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 On vanc/zosyn, surg I&D done 12/24. 12/10 surg cx with MS-CoNS, klebs, enterobacter, MRSE, and anaerobes. Surg cx now with rare fungus, klebs. Will narrow abx to doxy/unasyn. Plan on po abx at discharge. Will follow
--- NOTE | 2020-12-27 15:36 | CASEMGMT ---
VERNON has not heard back from Sonia at [facility]. VERNON spoke with patient and let him know that VERNON has not heard back from [facility]. VERNON will follow up with him tomorrow. Marie HICKS
[2020-12-27] MEDS: Insulin Lispro 100 UNIT/ML INSULN.PEN 10 UNIT SC (15:39)
[2020-12-27 15:40] LABS: Bedside Glucose 351 mg/dL (70-110)
[2020-12-27] MEDS: Morphine 2 MG/ML Syringe IV (18:44)
[2020-12-27] MEDS: Doxycycline 100 MG CAPSULE PO (21:32)
[2020-12-27 22:25] LABS: Bedside Glucose 237 mg/dL (70-110)
[2020-12-28 00:05] VITALS: PULSE 122
[2020-12-28] MEDS: oxyCODONE 5 MG Tablet PO ×3 (02:25→14:22)
[2020-12-28 04:07] VITALS: PULSE 96
[2020-12-28 04:54] VITALS: BP 103/50; PULSE 84; RESP 16; TEMP 36.8; O2SAT 100
[2020-12-28] MEDS: Insulin Lispro 100 UNIT/ML INSULN.PEN SC ×2 (06:27→11:22)
[2020-12-28] MEDS: Insulin Lispro 100 UNIT/ML INSULN.PEN 10 UNIT SC ×2 (06:28→11:22)
[2020-12-28 06:46] VITALS: PULSE 82
[2020-12-28 07:06] LABS: Bedside Glucose 309 mg/dL (70-110)
[2020-12-28 07:16] LABS: Absolute Lymphocyte Count 1.21 X10^3/uL (0.83-4.51); Absolute Neutrophil Count 1.6 X10^3/uL (2.0-7.7); Basophil# 0.03 X10^3/uL; Basophil% 0.9 % (0-1); Eosinophil# 0.15 X10^3/uL; Eosinophils% 4.3 % (0-5); Hematocrit 31.2 % (40-54); Hemoglobin 10.6 g/dL (13.0-16.5); Lymphocyte # 1.21 X10^3/ul (4.0); Lymphocyte % 34.6 % (19-41); Mean Corpuscular Hgb 30.3 pg (27.0-32.0); Mean Corpuscular Volume 89.1 fL (80-94); Mean Platelet Vol. 9.2 fl (6.2-12.0); Monocyte# 0.46 X10^3/uL; Monocyte% 13.1 % (0-10); NRBC Flagged by Analyzer 0 % (0-5); Neutrophil # 1.64 X10^3/uL (2.7-7.7); Neutrophil % 46.8 % (47-70); Platelet Count 283 K/mm3 (150-450); RBC Distribution Width CV 11.8 % (11.6-14.6); RBC Distribution Width SD 37.6 fl (35.1-43.9); White Blood Count 3.5 K/mm3 (4.4-11.0)
[2020-12-28 07:39] LABS: ALB/GLOB Ratio 0.7 RATIO (0.9-2.4); AST(SGOT) 13 U/L (15-37); Alanine Aminotransfer ALT/SGPT 14 U/L (16-61); Albumin, Serum 2.4 g/dL (3.2-5.0); Alkaline Phosphatase 76 U/L (45-117); Anion Gap 4 (5-15); BUN 10 mg/dL (7-18); BUN/Creat Ratio 18.6 RATIO (10-20); Calcium,Total 8.8 mg/dL (8.5-10.1); Chloride 99 mmol/L (98-107); Creatinine, Serum 0.54 mg/dL (0.70-1.30); EST Glomerular Filtration Rate 207 mL/min (>60); Est Glom Filt Rate - Afr Amer 251 mL/min (>60); Estimated Creatinine Clearance 239.51 ml/min; Globulin 3.3 g/dL (2.2-4.2); Glucose 316 mg/dL (74-106); Potassium 3.7 mmol/L (3.5-5.1); Protein, Total 5.7 g/dL (6.4-8.2); Sodium Level 136 mmol/L (136-145)
[2020-12-28] MEDS: Enoxaparin 40 MG/0.4 ML Syringe SC (09:07)
[2020-12-28] MEDS: Doxycycline 100 MG CAPSULE PO (09:08)
[2020-12-28] MEDS: Famotidine 20 MG Tablet PO (09:08)
[2020-12-28] MEDS: Glucerna Shake 120 ML LIQUID PO (09:09)
--- NOTE | 2020-12-28 10:00 | CASEMGMT ---
Addendum entered by aMrie Elliott 12/28/20 11:02: VERNON received a call from Sonia and they can take patient at [facility], but they do not have any beds until or Sunday. Patient is ready today so VERNON told her that is not an option for patient, but thanked her for reviewing the referral. SW then called [facility] ([facility]) regarding referral. SW also faxed referral. Await response from [facility]. SASKIA Moseley Original Note: VERNON called Sonia at [facility] and they are not able to accept patient due to his age and Psychosocial issues. SW let patient know this information. He gave SW the list and they had a total of 3 places listed. The second choice is [facility] and third is [facility]. VERNON called Sonia back as she also handles [facility] referrals. Await response. Marie KRUGER MSW
--- NOTE | 2020-12-28 10:41 | PN.ID_ITS ---
Patient Problems: Active and Suspected Problems (Last Reviewed 10/27/20 @ 11:[address] Will Mason MD) Diabetic ketoacidosis associated with type 1 diabetes mellitus (Acute) Abscess of left thigh (Acute) Nonhealing surgical wound (Acute) Left thigh Uncontrolled type 1 diabetes mellitus (Acute) Noncompliance (Acute) Severe sepsis (Acute) Subjective: Feeling ok, no fever, no n/v/d - Physical Exam Vitals/I&O's: Vital Signs Temp Pulse Resp BP Pulse Ox 98.2 F 82 16 103/50 L 100 12/28/20 04:54 12/28/20 06:46 12/28/20 04:54 12/28/20 04:54 12/28/20 04:54 Oxygen Flow Rate (L/min) 15 Oxygen Delivery Method Room Air Weight: 78.6 kg Body Mass Index (BMI) 20.0 Finger Stick Blood Glucose 138 Intake and Output for Last 24 Hours 12/26/20 12/27/20 12/28/20 23:59 23:59 23:59 Intake Total 1270 / 1510 2914 / 2914 362 / 362 Output Total 2950 / 2950 4500 / 4500 925 / 925 Balance -1680 / -1440 -1586 / -1586 -563 / -563 General: Alert, Cooperative, No apparent distress Lungs: Clear to auscultation, Normal air movement Cardiovascular: Regular rate, Regular Rhythm Abdomen: Soft, Non Tender, Non-Distended Skin: Ulcer/ Wound - wound vac in place Microbiology Past 72 Hours 12/24/20 Unknown Wound Abcess - Leg, Left Gram Stain - Final 12/24/20 Unknown Wound Abcess - Leg, Left Wound Culture - Preliminary Possible Fungus Klebsiella pneumoniae sp pneum 12/24/20 Unknown Wound Abcess - Leg, Left Anaerobic Culture - Preliminary Checking for anaerobes, further studies to follow. 12/24/20 11:15 Wound - Leg, Left Gram Stain - Final 12/24/20 11:15 Wound - Leg, Left Wound Culture - Final No growth aerobically. 12/24/20 11:15 Wound - Leg, Left Anaerobic Culture - Preliminary Checking for anaerobes, further studies to follow. 12/24/20 05:45 Urine Catheter - Catheter Urine Culture - Final Culture exhibits no growth. 12/24/20 05:30 Blood Culture (Wb) - Anticubital Right Blood Culture - Preliminary No growth in 48 hours. 12/24/20 05:35 Blood Culture (Wb) - Anticubital Left Blood Culture - Preliminary No growth in 48 hours. Laboratory Results 12/27/20 10:59: POC Glucose 307 H 12/27/20 15:37: POC Glucose 351 H 12/27/20 21:37: POC Glucose 237 H 12/28/20 06:00: WBC 3.5 L, RBC 3.50 L, Hgb 10.6 L, Hct 31.2 L, MCV 89.1, MCH 30.3, MCHC 34.0, RDW Std Deviation 37.6, RDW Coeff of Rabia 11.8, Plt Count 283, MPV 9.2, Immature Gran % (Auto) 0.300, Neut % (Auto) 46.8 L, Lymph % (Auto) 34.6, [place] % (Auto) 13.1 H, Eos % (Auto) 4.3, Baso % (Auto) 0.9, Absolute Neuts (auto) 1.6 L, Absolute Lymphs (auto) 1.21, Nucleated RBC % 0 12/28/20 06:00: Sodium 136, Potassium 3.7, Chloride 99, Carbon Dioxide 33.0 H, Anion Gap 4 L, BUN 10, Creatinine 0.54 L, Estim Creat Clear Calc 239.51, Est GFR (MDRD) Af Amer 251, Est GFR (MDRD) Non-Af 207, BUN/Creatinine Ratio 18.6, Glucose 316 H, Calcium 8.8, Total Bilirubin 0.50, AST 13 L, ALT 14 L, Alkaline Phosphatase 76, Total Protein 5.7 L, Albumin 2.4 L, Globulin 3.3, Albumin/Globulin Ratio 0.7 L 12/28/20 06:27: POC Glucose 309 H Current Medications Acetaminophen (Acetaminophen 650 Mg/20 Ml Udc) 650 mg PO Q6H PRN PRN PRN Reason: Pain Score 1-3 /Temp>100.7 Al Hydroxide/Mg Hydroxide (Mag Hydrox/Al Hydrox/Simeth 30 Ml Udc) 30 ml PO Q6H PRN PRN PRN Reason: Gastric Burning Albuterol Sulfate (Albuterol 2.5 Mg/3 Ml Vial.Neb.) 2.5 mg INHALATION Q2H PRN PRN PRN Reason: Dyspnea, wheezing Bisacodyl (Bisacodyl 5 Mg Tablet) 10 mg PO DAILY PRN PRN PRN Reason: Constipation Calamine/Phenol (Menthol/Lanolin/Calamine/Znox 113 Gm Tube) 1 applic TOPICAL TID [facility]; Protocol Last Admin: 12/28/20 05:26 Dose: Not Given Documented by: Dextrose (Dextrose 50%-Water 25 Gm/50 Ml Disp.Syrin) 0 gm IV X1 PRN; Protocol PRN Reason: HYPOGLYCEMIA Dextrose (Dextrose 50%-Water 25 Gm/50 Ml Disp.Syrin) 0 gm IV X1 PRN; Protocol PRN Reason: Hypoglycemia Docusate Sodium (Docusate Sodium 100 Mg Capsule) 200 mg PO BID PRN PRN PRN Reason: Constipation Doxycycline Monohydrate (Doxycycline 100 Mg Capsule) 100 mg PO BID [facility] Last Admin: 12/28/20 09:08 Dose: 100 mg Documented by: Enoxaparin Sodium (Enoxaparin 40 Mg/0.4 Ml Syringe) 40 mg SC DAILY [facility] Last Admin: 12/28/20 09:07 Dose: 40 mg Documented by: Famotidine (Famotidine 20 Mg Tablet) 20 mg PO BID [facility] Last Admin: 12/28/20 09:08 Dose: 20 mg Documented by: Glucagon (Glucagon 1 Mg/Ml Syringe) 1 mg IM .X1 PRN PRN Reason: Hypoglycemia Hydralazine HCl (Hydralazine 20 Mg/Ml Vial) 10 mg IV Q4H PRN PRN PRN Reason: SBP > 160 Sodium Chloride () 250 mls @ 15 mls/hr IV .[id number] PRN PRN Reason: Saline Flush Last Admin: 12/28/20 05:27 Dose: 15 mls/hr Documented by: Sodium Chloride () 250 mls @ 15 mls/hr IV .[id number] PRN PRN Reason: Additional IVPB Infusion Last Infusion: 12/28/20 05:32 Dose: Infused Documented by: Ampicillin Sodium/Sulbactam (Sodium 3 gm/ Sodium Chloride) 112 mls @ 150 mls/hr IV Q8 [facility] Last Infusion: 12/28/20 06:18 Dose: Infused Documented by: Fluconazole (Diflucan) 200 mg in 100 mls @ 100 mls/hr IV Q24 [facility] Last Admin: 12/28/20 09:17 Dose: 100 mls/hr Documented by: Insulin Glargine (Insulin Glargine 100 Units/Ml Pen) 35 units SC BID [facility] Last Admin: 12/28/20 09:08 Dose: 35 u Documented by: Insulin Human Lispro (Insulin Lispro 100 Unit/Ml Insuln.Pen) 0 unit SC ACHS [facility]; Protocol Last Admin: 12/28/20 06:27 Dose: 9 units Documented by: Insulin Human Lispro (Insulin Lispro 100 Unit/Ml Insuln.Pen) 10 unit SC TIDAC [facility] Last Admin: 12/28/20 06:28 Dose: 10 units Documented by: Morphine Sulfate (Morphine 2 Mg/Ml Syringe) 2 - 4 mg IV Q4H PRN PRN PRN Reason: Pain Score 6-10 Last Admin: 12/27/20 18:44 Dose: 2 mg Documented by: Morphine Sulfate (Morphine 4 Mg/Ml Syringe) 2 - 4 mg IV Q4H PRN PRN PRN Reason: Pain Score 6-10 Nutritional Formula (Lactose Free) (Glucerna Shake 120 Ml Liquid) 120 ml PO 4X/DAY [facility] Last Admin: 12/28/20 09:09 Dose: 120 ml Documented by: Ondansetron HCl (Ondansetron 4 Mg/2 Ml Vial) 4 mg IV Q8H PRN PRN PRN Reason: Nausea Oxycodone HCl (Oxycodone 5 Mg Tablet) 5 mg PO Q4H PRN PRN PRN Reason: Pain Score 6-10 Last Admin: 12/28/20 09:06 Dose: 5 mg Documented by: Polyethylene Glycol (Polyethylene Glycol 3350 17 Gm Packet) 17 gm PO DAILY [facility] Last Admin: 12/28/20 09:15 Dose: Not Given Documented by: Prochlorperazine Edisylate (Prochlorperazine 10 Mg/2 Ml Vial) 10 mg IV Q6H PRN PRN PRN Reason: Nausea/Vomiting Sodium Chloride (0.9% Saline Lock 10 Ml Syringe) 10 - 40 ml IV UD PRN PRN Reason: SALINE FLUSH Last Admin: 12/26/20 08:56 Dose: 30 ml Documented by: Medical Necessity - Tobacco Use Smoking Status: Never smoker Route of nutrition/ use of supplements: [] Nutritional Intake: [] IV Site: [] Youssef Catheter: [] - Assessment/Plan Antibiotics: [] Assessment/Plan: [] Active and Suspected Problems (Last Reviewed 10/27/20 @ 11:[address] 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 Surg I&D done 12/24. 12/10 surg cx with MS-CoNS, klebs, enterobacter, MRSE, and anaerobes. Surg cx now with rare fungus, klebs. On doxy/unasyn. Plan on po doxy 100mg bid and augmentin 875mg bid for 5 more days at discharge. Will follow
[2020-12-28 11:14] VITALS: BP 108/60; PULSE 104; RESP 16; TEMP 37.1; O2SAT 98
[2020-12-28 11:20] LABS: Bedside Glucose 290 mg/dL (70-110)
--- NOTE | 2020-12-28 11:43 | PCM.EXTCARCO ---
- Diet 12/25/20 09:59 Diet: Carbohydrate Controlled Type of Dietary Supplement:: Chase Is pt able to select menu?: Yes Diet Comments: w/ breakfast and dinner - Routine Orders/Code Status Enema Type: Fleetz Enema Frequency: Daily PRN Suppository Type: Dulcolax 10mg Suppository Frequency: Daily PRN Routine Lab Work: - - Weekly CBC, BMP Code Status: Full Code - Wound(s) left thigh Wound Type: Surgical Incision Dressing Change: Wet to Dry Dressing Left thigh anterior Wound Type: Puncture - Suggestions for Active Care Change Position every (hours): 2 Times a day to sit in chair: 3 - Therapies Physical Therapy: Eval and Treat Occupational Therapy: Eval and Treat - Problem/Diagnosis (1) Diabetic ketoacidosis associated with type 1 diabetes mellitus Status: Acute (2) Abscess of left thigh Status: Acute (3) Nonhealing surgical wound Status: Acute Comment: Left thigh (4) Uncontrolled type 1 diabetes mellitus Status: Acute (5) Asthma Status: Chronic (6) GERD (gastroesophageal reflux disease) Status: Chronic - Allergies/Procedures Done in Hospital Allergies/Adverse Reactions: Allergies No Known Allergies Allergy (Verified 12/24/20 05:39) Procedures: - - OR 12/24/2020 I&D left thigh nonhealing necrotic infected wound - Type of Care/Length of Stay Estimated LOS: Convalescent Care Less Than 30 days Type of Care Needed: Skilled Rehab Potential: Good Prognosis: Good - Additional Orders/Day of Discharge Additional Orders: Wound VAC placed 12/27/2020. Continue wound VAC at 150 mmHg continuous suction with 3 dressing changes per week. H&P will serve as current which was dated: 12/24/20 Day of Discharge: 12/28/20 - Dietary and Speech Recommendations Dietitian Recommendations/Changes: will change to CHO controlled diet to more appropriately meet nutritional needs; add Glucerna 4x/day and Chase BID for wound healing. - Follow Up Care Primary Care Physician: Tori Butler MD [Primary Care Provider] - Please follow up with your Primary Care Physician in: 1 Week Please Follow Up With: Raymundo Landin MD When: 1 Week
--- NOTE | 2020-12-28 11:59 | DS.PCM_ITS ---
<Imelda Lindsay DATA COLLECTOR - Last Filed: 12/28/20 12:08> Discharge Date and Diagnosis - Problem List Patient Problems: Active and Suspected Problems (Last Reviewed 10/27/20 @ 11:[address] Will Mason MD) Diabetic ketoacidosis associated with type 1 diabetes mellitus (Acute) Abscess of left thigh (Acute) Nonhealing surgical wound (Acute) Left thigh Uncontrolled type 1 diabetes mellitus (Acute) Noncompliance (Acute) Severe sepsis (Acute) Date of Admission: 12/24/20 Date of Discharge: 12/28/20 - Primary Discharge Diagnosis Acute Problems: Active Problems (Last Reviewed 10/27/20 @ 11:[address] Will Mason MD) 1. Acute hypoxic respiratory failure, multifactorial secondary to acute severe sepsis as a result of acute left thigh infected wound and DKA in the setting of uncontrolled type 1 diabetes mellitus-extubated 12/25/2020. 2. Severe sepsis secondary to acute left thigh nonhealing necrotic infected Klebsiella wound-OR 12/24/2020 for I&D 3. DKA with type 1 diabetes mellitus 4. Acute kidney injury-resolved. 5. Hypokalemia 6. Acute encephalopathy-resolved following treatment of #1/#2/#3. 7. GERD 8. History of asthma - Secondary Discharge Diagnosis Chronic Problems: Chronic Problems (Last Reviewed 10/27/20 @ 11:[address] 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 Soft tissue defect in the posterior mid thigh. at 0621 Reported and signed by: Yael Garner MD Electronically Signed: Yael Garner MD at 6:20 EST Tel , Service support , Chest X-Ray 12/24/20 07:09 IMPRESSION: Endotracheal tube and gastric tube in place. at 0727 Reported and signed by: Yael Garner MD Electronically Signed: Yael Garner MD at 7:27 EST Tel , Service support , Consultations 12/24/20 09:18 Consult: Onc/Wound/earth sciences professor Routine Comment: Reason for Consult:: LT THIGH WOUND Dr. Mcmullen- ID Dr. Momin- graphic engineer Dr. Landin- plastics Operations: - - OR 12/24/2020 for I&D left thigh nonhealing necrotic infected wound Procedures: None Summary of Care Provided: The patient is a 20 year old M admitted 12/24/2020 due to altered mental status. 1. Acute hypoxic respiratory failure, multifactorial secondary to acute severe sepsis as a result of acute left thigh infected wound and DKA in the setting of uncontrolled type 1 diabetes mellitus-extubated 12/25/2020. Oxygen remained stable on room air. 2. Severe sepsis secondary to acute left thigh nonhealing necrotic Klebsiella infected wound-OR 12/24/2020 for I&D-ID and plastics consulted during admission. Wound culture growing Klebsiella and possible fungus. Blood culture showed no growth. Wound VAC placed 12/27/2020. Plan for oral doxycycline and Augmentin for 5 days at discharge. Wound VAC change 3 times per week. Follow up with Dr. Landin in 1 week. 3. DKA with type 1 diabetes mellitus-noncompliant history. Hemoglobin A1c greater than 14%. Lantus 35 units twice daily. Sliding scale insulin. Scheduled Humalog to 10 units 3 times daily. Follow-up with endocrinology as scheduled 01/14/2021. 4. Acute kidney injury-resolved. 5. Hypokalemia-replace per protocol, trend BMP. 6. Acute encephalopathy-resolved following treatment of #1/#2/#3. 7. GERD-on PPI. 8. History of asthma-as needed albuterol aerosol. General: Alert, Oriented x3, Cooperative HEENT: Atraumatic, PERRLA, EOMI, Normocephalic Neck: Supple, No JVD, Negative Carotid Bruits Lungs: Clear to auscultation, Normal air movement Cardiovascular: Regular rate, No murmurs Abdomen: Bowel Sounds Present, Soft, Non Tender, Non-Distended Extremities: No clubbing, No cyanosis, No edema, Capillary Refill Less than 3 Seconds Skin: - - Left lower extremity dressing intact Musculoskeletal: No Tenderness to Palpation of Joints or Extremities Neurological: Cranial nerves II-XII grossly intact, Neuro grossly intact Psych/Mental Status: Normal Affect, Appropriate Patient seen and examined prior to discharge. Physical assessment as noted above. Patient is stable for discharge with follow up recommendations as noted above. This patient was seen by BETSY Campbell under the supervision of Dr. Stanley. Patient Problems: Active and Suspected Problems (Last Reviewed 10/27/20 @ 11:[address] Will Mason MD) Diabetic ketoacidosis associated with type 1 diabetes mellitus (Acute) Abscess of left thigh (Acute) Nonhealing surgical wound (Acute) Left thigh Uncontrolled type 1 diabetes mellitus (Acute) Noncompliance (Acute) Severe sepsis (Acute) - Physical Exam Vitals/I&O's: Vital Signs Temp Pulse Resp BP Pulse Ox 98.8 F 104 H 16 108/60 98 12/28/20 11:14 12/28/20 11:14 12/28/20 11:14 12/28/20 11:14 12/28/20 11:14 Oxygen Flow Rate (L/min) 15 Oxygen Delivery Method Room Air Weight: 173 lb 4.533 oz Body Mass Index (BMI) 20.0 Finger Stick Blood Glucose 138 Intake and Output for Last 24 Hours 12/26/20 12/27/20 12/28/20 23:59 23:59 23:59 Intake Total 1270 / 1510 2914 / 2914 462 / 462 Output Total 2950 / 2950 4500 / 4500 925 / 925 Balance -1680 / -1440 -1586 / -1586 -463 / -463 Microbiology Past 72 Hours 12/24/20 Unknown Wound Abcess - Leg, Left Gram Stain - Final 12/24/20 Unknown Wound Abcess - Leg, Left Wound Culture - Preliminary Possible Fungus Klebsiella pneumoniae sp pneum 12/24/20 Unknown Wound Abcess - Leg, Left Anaerobic Culture - Preliminary Checking for anaerobes, further studies to follow. 12/24/20 11:15 Wound - Leg, Left Gram Stain - Final 12/24/20 11:15 Wound - Leg, Left Wound Culture - Final No growth aerobically. 12/24/20 11:15 Wound - Leg, Left Anaerobic Culture - Preliminary Checking for anaerobes, further studies to follow. 12/24/20 05:45 Urine Catheter - Catheter Urine Culture - Final Culture exhibits no growth. 12/24/20 05:30 Blood Culture (Wb) - Anticubital Right Blood Culture - Preliminary No growth in 48 hours. 12/24/20 05:35 Blood Culture (Wb) - Anticubital Left Blood Culture - Preliminary No growth in 48 hours. Laboratory Results 12/27/20 15:37: POC Glucose 351 H 12/27/20 21:37: POC Glucose 237 H 12/28/20 06:00: WBC 3.5 L, RBC 3.50 L, Hgb 10.6 L, Hct 31.2 L, MCV 89.1, MCH 30.3, MCHC 34.0, RDW Std Deviation 37.6, RDW Coeff of Rabia 11.8, Plt Count 283, MPV 9.2, Immature Gran % (Auto) 0.300, Neut % (Auto) 46.8 L, Lymph % (Auto) 34.6, Nuckolls % (Auto) 13.1 H, Eos % (Auto) 4.3, Baso % (Auto) 0.9, Absolute Neuts (auto) 1.6 L, Absolute Lymphs (auto) 1.21, Nucleated RBC % 0 12/28/20 06:00: Sodium 136, Potassium 3.7, Chloride 99, Carbon Dioxide 33.0 H, Anion Gap 4 L, BUN 10, Creatinine 0.54 L, Estim Creat Clear Calc 239.51, Est GFR (MDRD) Af Amer 251, Est GFR (MDRD) Non-Af 207, BUN/Creatinine Ratio 18.6, Glucose 316 H, Calcium 8.8, Total Bilirubin 0.50, AST 13 L, ALT 14 L, Alkaline Phosphatase 76, Total Protein 5.7 L, Albumin 2.4 L, Globulin 3.3, Albumin/Globulin Ratio 0.7 L 12/28/20 06:27: POC Glucose 309 H 12/28/20 11:13: POC Glucose 290 H Current Medications Acetaminophen (Acetaminophen 650 Mg/20 Ml Udc) 650 mg PO Q6H PRN PRN PRN Reason: Pain Score 1-3 /Temp>100.7 Al Hydroxide/Mg Hydroxide (Mag Hydrox/Al Hydrox/Simeth 30 Ml Udc) 30 ml PO Q6H PRN PRN PRN Reason: Gastric Burning Albuterol Sulfate (Albuterol 2.5 Mg/3 Ml Vial.Neb.) 2.5 mg INHALATION Q2H PRN PRN PRN Reason: Dyspnea, wheezing Amoxicillin/Clavulanate Potassium (Amox/Clavulanate 875 Mg Tablet) 875 mg PO BID REPLACED BY [facility] Bisacodyl (Bisacodyl 5 Mg Tablet) 10 mg PO DAILY PRN PRN PRN Reason: Constipation Calamine/Phenol (Menthol/Lanolin/Calamine/Znox 113 Gm Tube) 1 applic TOPICAL TID REPLACED BY [facility]; Protocol Last Admin: 12/28/20 05:26 Dose: Not Given Documented by: Dextrose (Dextrose 50%-Water 25 Gm/50 Ml Disp.Syrin) 0 gm IV X1 PRN; Protocol PRN Reason: HYPOGLYCEMIA Dextrose (Dextrose 50%-Water 25 Gm/50 Ml Disp.Syrin) 0 gm IV X1 PRN; Protocol PRN Reason: Hypoglycemia Docusate Sodium (Docusate Sodium 100 Mg Capsule) 200 mg PO BID PRN PRN PRN Reason: Constipation Doxycycline Monohydrate (Doxycycline 100 Mg Capsule) 100 mg PO BID REPLACED BY [facility] Last Admin: 12/28/20 09:08 Dose: 100 mg Documented by: Enoxaparin Sodium (Enoxaparin 40 Mg/0.4 Ml Syringe) 40 mg SC DAILY REPLACED BY [facility] Last Admin: 12/28/20 09:07 Dose: 40 mg Documented by: Famotidine (Famotidine 20 Mg Tablet) 20 mg PO BID REPLACED BY [facility] Last Admin: 12/28/20 09:08 Dose: 20 mg Documented by: Glucagon (Glucagon 1 Mg/Ml Syringe) 1 mg IM .X1 PRN PRN Reason: Hypoglycemia Hydralazine HCl (Hydralazine 20 Mg/Ml Vial) 10 mg IV Q4H PRN PRN PRN Reason: SBP > 160 Sodium Chloride () 250 mls @ 15 mls/hr IV .[id number] PRN PRN Reason: Saline Flush Last Admin: 12/28/20 05:27 Dose: 15 mls/hr Documented by: Sodium Chloride () 250 mls @ 15 mls/hr IV .[id number] PRN PRN Reason: Additional IVPB Infusion Last Infusion: 12/28/20 05:32 Dose: Infused Documented by: Ampicillin Sodium/Sulbactam (Sodium 3 gm/ Sodium Chloride) 112 mls @ 150 mls/hr IV Q8 REPLACED BY [facility] Last Infusion: 12/28/20 06:18 Dose: Infused Documented by: Fluconazole (Diflucan) 200 mg in 100 mls @ 100 mls/hr IV Q24 REPLACED BY [facility] Last Infusion: 12/28/20 10:20 Dose: Infused Documented by: Insulin Glargine (Insulin Glargine 100 Units/Ml Pen) 35 units SC BID REPLACED BY [facility] Last Admin: 12/28/20 09:08 Dose: 35 u Documented by: Insulin Human Lispro (Insulin Lispro 100 Unit/Ml Insuln.Pen) 0 unit SC ACHS REPLACED BY [facility]; Protocol Last Admin: 12/28/20 11:22 Dose: 9 units Documented by: Insulin Human Lispro (Insulin Lispro 100 Unit/Ml Insuln.Pen) 10 unit SC TIDAC REPLACED BY [facility] Last Admin: 12/28/20 11:22 Dose: 10 units Documented by: Morphine Sulfate (Morphine 2 Mg/Ml Syringe) 2 - 4 mg IV Q4H PRN PRN PRN Reason: Pain Score 6-10 Last Admin: 12/27/20 18:44 Dose: 2 mg Documented by: Morphine Sulfate (Morphine 4 Mg/Ml Syringe) 2 - 4 mg IV Q4H PRN PRN PRN Reason: Pain Score 6-10 Nutritional Formula (Lactose Free) (Glucerna Shake 120 Ml Liquid) 120 ml PO 4X/DAY REPLACED BY [facility] Last Admin: 12/28/20 09:09 Dose: 120 ml Documented by: Ondansetron HCl (Ondansetron 4 Mg/2 Ml Vial) 4 mg IV Q8H PRN PRN PRN Reason: Nausea Oxycodone HCl (Oxycodone 5 Mg Tablet) 5 mg PO Q4H PRN PRN PRN Reason: Pain Score 6-10 Last Admin: 12/28/20 09:06 Dose: 5 mg Documented by: Polyethylene Glycol (Polyethylene Glycol 3350 17 Gm Packet) 17 gm PO DAILY REPLACED BY [facility] Last Admin: 12/28/20 09:15 Dose: Not Given Documented by: Prochlorperazine Edisylate (Prochlorperazine 10 Mg/2 Ml Vial) 10 mg IV Q6H PRN PRN PRN Reason: Nausea/Vomiting Sodium Chloride (0.9% Saline Lock 10 Ml Syringe) 10 - 40 ml IV UD PRN PRN Reason: SALINE FLUSH Last Admin: 12/26/20 08:56 Dose: 30 ml Documented by: Home Medications: Medications to take at Discharge Albuterol Inhaler [Ventolin Hfa] 2 puff INHALATION Q4H PRN PRN 02/15/19 Fluticasone 44 Mcg [Flovent 44 Mcg] 2 puff IH BID 11/12/19 Omeprazole [Prilosec] 20 mg PO DAILY 12/09/20 Acetaminophen Liquid [Tylenol Liquid] 650 mg PO Q6H PRN PRN udc 12/28/20 Amox/Clavulanate Tablet [Augmentin Tablet] 875 mg PO BID tab 12/28/20 Doxycycline 100 mg PO BID cap 12/28/20 Insulin Glargine [Lantus SoloStar Pen] 35 units SC BID pen 12/28/20 Insulin Lispro [Humalog KwikPen] 10 unit SC TIDAC insuln.pen 12/28/20 Insulin Lispro [Humalog KwikPen] See Protocol SC ACHS insuln.pen 12/28/20 Oxycodone [Oxyir] 5 mg PO Q4H PRN PRN 2 Days #5 tab 12/28/20 Polyethylene Glycol 3350 [Miralax] 17 gm PO DAILY packet 12/28/20 Potassium Chloride Oral Tablet [K-Dur] 20 meq PO DAILY #0 12/28/20 Following Prescriptions Were Given to Patient: Oxycodone [Oxyir] 5 mg PO Q4H PRN PRN 2 Days #5 tab PRN Reason: Pain Score 6-10 Prescription Printed Primary Care Physician: Tori Butler MD [Primary Care Provider] - Please follow up with your Primary Care Physician in: 1 Week Please Follow Up With: Raymundo Landin MD When: 1 Week Please Follow Up With: Lauro Galindo MD When: as scheduled 01/14/21 Disposition: Half-Way facility Minutes spent on discharge:: 35 Patient Condition:: Stable Medical Necessity - Tobacco Use Smoking Status: Never smoker Meaningful Use Info Meaningful Use Diagnoses (Choose all that apply): None applicable <Mendy Stanley - Last Filed: 12/28/20 13:05> Discharge Date and Diagnosis - Primary Discharge Diagnosis Acute Problems: Active Problems (Last Reviewed 10/27/20 @ 11:[address] Will Mason MD) Diabetic ketoacidosis associated with type 1 diabetes mellitus (Acute) Abscess of left thigh (Acute) Nonhealing surgical wound (Acute) Left thigh Uncontrolled type 1 diabetes mellitus (Acute) Noncompliance (Acute) Severe sepsis (Acute) - Secondary Discharge Diagnosis Chronic Problems: Chronic Problems (Last Reviewed 10/27/20 @ 11:[address] 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 Patient presented to the emergency room because of altered mental status and he was found to have acute severe sepsis secondary to acute left thigh nonhealing necrotic infected ulcer and also found to have DKA which was complicated by acute hypoxic respiratory failure. Patient was intubated and admitted to the intensive care unit, was started on IV antibiotics and IV insulin drip per DKA protocol. Patient was extubated 1 day after admission and his respiratory status stabilized. He was continued on IV Unasyn and doxycycline as well as IV fluconazole. Plastic surgery consulted and patient underwent incision, drainage and excisional debridement of the left thigh necrotic infected ulcer. After surgery, wound VAC placed. Wound culture revealed Klebsiella pneumoniae and rare fungus. Blood culture showed no growth in 48 hours. COVID-19 antigen was negative. Infectious disease consulted and recommended to discharge patient on doxycycline and Augmentin for 5 days after discharge. Patient had type 1 diabetes mellitus which has been uncontrolled due to noncompliance. DKA resolved and patient was started back on his Lantus and Humalog 3 times daily. Patient discharged to intermediate facility in a stable medical condition, discharged on Augmentin and doxycycline as mentioned above, discharged on OxyIR as needed for pain, discharged on his previous home medications without any changes, plan to follow-up with Dr. Landin in 1 week, recommended follow-up with PCP in 1 week as well. - Physical Exam General: Alert, Oriented x3, Cooperative, No apparent distress. HEENT: Atraumatic, PERRLA, EOMI. Neck: Supple, No JVD, Negative Carotid Bruits, Trachea Midline, Thyroid Normal. Lungs: Diminished breath sounds bilateral, otherwise clear no rhonchi, No wheeze, No rales. Cardiovascular: Regular rate, Regular Rhythm, Normal S1, Normal S2, PMI Normal. Abdomen: Bowel Sounds Present, Soft, Non Tender, Non-Distended, No Hepato- splenomegaly. Extremities: No clubbing, No cyanosis, No edema. Left thigh dressed. Skin: No rashes, No breakdown Neurological: Cranial nerves are intact, neuro grossly intact Vital Signs are stable. This note was generated with [employer] dictation software. It may contain incorrect words, spelling, and punctuation that were not noted in checking the note before signing. - Physical Exam Vitals/I&O's: Vital Signs Temp Pulse Resp BP Pulse Ox 98.8 F 104 H 16 108/60 98 12/28/20 11:14 12/28/20 11:14 12/28/20 11:14 12/28/20 11:14 12/28/20 11:14 Oxygen Flow Rate (L/min) 15 Oxygen Delivery Method Room Air Weight: 173 lb 4.533 oz Body Mass Index (BMI) 20.0 Finger Stick Blood Glucose 138 Intake and Output for Last 24 Hours 12/26/20 12/27/20 12/28/20 23:59 23:59 23:59 Intake Total 1270 / 1510 2914 / 2914 462 / 462 Output Total 2950 / 2950 4500 / 4500 925 / 925 Balance -1680 / -1440 -1586 / -1586 -463 / -463 Microbiology Past 72 Hours 12/28/20 11:55 Mucosa - Nasopharyngeal SARS-CoV-2 Antigen (Rapid) - Final 12/24/20 Unknown Wound Abcess - Leg, Left Gram Stain - Final 12/24/20 Unknown Wound Abcess - Leg, Left Wound Culture - Preliminary Possible Fungus Klebsiella pneumoniae sp pneum 12/24/20 Unknown Wound Abcess - Leg, Left Anaerobic Culture - Preliminary Checking for anaerobes, further studies to follow. 12/24/20 11:15 Wound - Leg, Left Gram Stain - Final 12/24/20 11:15 Wound - Leg, Left Wound Culture - Final No growth aerobically. 12/24/20 11:15 Wound - Leg, Left Anaerobic Culture - Preliminary Checking for anaerobes, further studies to follow. 12/24/20 05:45 Urine Catheter - Catheter Urine Culture - Final Culture exhibits no growth. 12/24/20 05:30 Blood Culture (Wb) - Anticubital Right Blood Culture - Preliminary No growth in 48 hours. 12/24/20 05:35 Blood Culture (Wb) - Anticubital Left Blood Culture - Preliminary No growth in 48 hours. Laboratory Results 12/27/20 15:37: POC Glucose 351 H 12/27/20 21:37: POC Glucose 237 H 12/28/20 06:00: WBC 3.5 L, RBC 3.50 L, Hgb 10.6 L, Hct 31.2 L, MCV 89.1, MCH 30.3, MCHC 34.0, RDW Std Deviation 37.6, RDW Coeff of Rabia 11.8, Plt Count 283, MPV 9.2, Immature Gran % (Auto) 0.300, Neut % (Auto) 46.8 L, Lymph % (Auto) 34.6, Nuckolls % (Auto) 13.1 H, Eos % (Auto) 4.3, Baso % (Auto) 0.9, Absolute Neuts (auto) 1.6 L, Absolute Lymphs (auto) 1.21, Nucleated RBC % 0 12/28/20 06:00: Sodium 136, Potassium 3.7, Chloride 99, Carbon Dioxide 33.0 H, Anion Gap 4 L, BUN 10, Creatinine 0.54 L, Estim Creat Clear Calc 239.51, Est GFR (MDRD) Af Amer 251, Est GFR (MDRD) Non-Af 207, BUN/Creatinine Ratio 18.6, Glucose 316 H, Calcium 8.8, Total Bilirubin 0.50, AST 13 L, ALT 14 L, Alkaline Phosphatase 76, Total Protein 5.7 L, Albumin 2.4 L, Globulin 3.3, Albumin/Globulin Ratio 0.7 L 12/28/20 06:27: POC Glucose 309 H 12/28/20 11:13: POC Glucose 290 H Current Medications Acetaminophen (Acetaminophen 650 Mg/20 Ml Udc) 650 mg PO Q6H PRN PRN PRN Reason: Pain Score 1-3 /Temp>100.7 Al Hydroxide/Mg Hydroxide (Mag Hydrox/Al Hydrox/Simeth 30 Ml Udc) 30 ml PO Q6H PRN PRN PRN Reason: Gastric Burning Albuterol Sulfate (Albuterol 2.5 Mg/3 Ml Vial.Neb.) 2.5 mg INHALATION Q2H PRN PRN PRN Reason: Dyspnea, wheezing Bisacodyl (Bisacodyl 5 Mg Tablet) 10 mg PO DAILY PRN PRN PRN Reason: Constipation Calamine/Phenol (Menthol/Lanolin/Calamine/Znox 113 Gm Tube) 1 applic TOPICAL TID REPLACED BY [facility]; Protocol Last Admin: 12/28/20 05:26 Dose: Not Given Documented by: Dextrose (Dextrose 50%-Water 25 Gm/50 Ml Disp.Syrin) 0 gm IV X1 PRN; Protocol PRN Reason: HYPOGLYCEMIA Dextrose (Dextrose 50%-Water 25 Gm/50 Ml Disp.Syrin) 0 gm IV X1 PRN; Protocol PRN Reason: Hypoglycemia Docusate Sodium (Docusate Sodium 100 Mg Capsule) 200 mg PO BID PRN PRN PRN Reason: Constipation Doxycycline Monohydrate (Doxycycline 100 Mg Capsule) 100 mg PO BID REPLACED BY [facility] Last Admin: 12/28/20 09:08 Dose: 100 mg Documented by: Enoxaparin Sodium (Enoxaparin 40 Mg/0.4 Ml Syringe) 40 mg SC DAILY REPLACED BY [facility] Last Admin: 12/28/20 09:07 Dose: 40 mg Documented by: Famotidine (Famotidine 20 Mg Tablet) 20 mg PO BID REPLACED BY [facility] Last Admin: 12/28/20 09:08 Dose: 20 mg Documented by: Glucagon (Glucagon 1 Mg/Ml Syringe) 1 mg IM .X1 PRN PRN Reason: Hypoglycemia Hydralazine HCl (Hydralazine 20 Mg/Ml Vial) 10 mg IV Q4H PRN PRN PRN Reason: SBP > 160 Sodium Chloride () 250 mls @ 15 mls/hr IV .[id number] PRN PRN Reason: Saline Flush Last Admin: 12/28/20 05:27 Dose: 15 mls/hr Documented by: Sodium Chloride () 250 mls @ 15 mls/hr IV .[id number] PRN PRN Reason: Additional IVPB Infusion Last Infusion: 12/28/20 05:32 Dose: Infused Documented by: Ampicillin Sodium/Sulbactam (Sodium 3 gm/ Sodium Chloride) 112 mls @ 150 mls/hr IV Q8 REPLACED BY [facility] Last Infusion: 12/28/20 06:18 Dose: Infused Documented by: Fluconazole (Diflucan) 200 mg in 100 mls @ 100 mls/hr IV Q24 REPLACED BY [facility] Last Infusion: 12/28/20 10:20 Dose: Infused Documented by: Insulin Glargine (Insulin Glargine 100 Units/Ml Pen) 35 units SC BID REPLACED BY [facility] Last Admin: 12/28/20 09:08 Dose: 35 u Documented by: Insulin Human Lispro (Insulin Lispro 100 Unit/Ml Insuln.Pen) 0 unit SC ACHS REPLACED BY [facility]; Protocol Last Admin: 12/28/20 11:22 Dose: 9 units Documented by: Insulin Human Lispro (Insulin Lispro 100 Unit/Ml Insuln.Pen) 10 unit SC TIDAC REPLACED BY [facility] Last Admin: 12/28/20 11:22 Dose: 10 units Documented by: Morphine Sulfate (Morphine 2 Mg/Ml Syringe) 2 - 4 mg IV Q4H PRN PRN PRN Reason: Pain Score 6-10 Last Admin: 12/27/20 18:44 Dose: 2 mg Documented by: Morphine Sulfate (Morphine 4 Mg/Ml Syringe) 2 - 4 mg IV Q4H PRN PRN PRN Reason: Pain Score 6-10 Nutritional Formula (Lactose Free) (Glucerna Shake 120 Ml Liquid) 120 ml PO 4X/DAY REPLACED BY [facility] Last Admin: 12/28/20 09:09 Dose: 120 ml Documented by: Ondansetron HCl (Ondansetron 4 Mg/2 Ml Vial) 4 mg IV Q8H PRN PRN PRN Reason: Nausea Oxycodone HCl (Oxycodone 5 Mg Tablet) 5 mg PO Q4H PRN PRN PRN Reason: Pain Score 6-10 Last Admin: 12/28/20 09:06 Dose: 5 mg Documented by: Polyethylene Glycol (Polyethylene Glycol 3350 17 Gm Packet) 17 gm PO DAILY REPLACED BY [facility] Last Admin: 12/28/20 09:15 Dose: Not Given Documented by: Prochlorperazine Edisylate (Prochlorperazine 10 Mg/2 Ml Vial) 10 mg IV Q6H PRN PRN PRN Reason: Nausea/Vomiting Sodium Chloride (0.9% Saline Lock 10 Ml Syringe) 10 - 40 ml IV UD PRN PRN Reason: SALINE FLUSH Last Admin: 12/26/20 08:56 Dose: 30 ml Documented by: Disposition: Half-Way facility Minutes spent on discharge:: 32 Patient Condition:: Stable Meaningful Use Info Meaningful Use Diagnoses (Choose all that apply): None applicable Inpatient E&M: 28653 Disch Hosp
--- NOTE | 2020-12-28 12:31 | PHA.DC.MR ---
Pharmacy Service has performed discharge medication reconciliation for this patient. The patient's discharge medication list was reviewed for discrepancies and discrepancies were resolved. Home Medications Albuterol Inhaler [Ventolin Hfa] 2 puff INHALATION Q4H PRN PRN 02/15/19 Fluticasone 44 Mcg [Flovent 44 Mcg] 2 puff IH BID 11/12/19 Omeprazole [Prilosec] 20 mg PO DAILY 12/09/20 Acetaminophen Liquid [Tylenol Liquid] 650 mg PO Q6H PRN PRN udc 12/28/20 Amox/Clavulanate Tablet [Augmentin Tablet] 875 mg PO BID tab 12/28/20 Doxycycline 100 mg PO BID cap 12/28/20 Insulin Glargine [Lantus SoloStar Pen] 35 units SC BID pen 12/28/20 Insulin Lispro [Humalog KwikPen] 10 unit SC TIDAC insuln.pen 12/28/20 Insulin Lispro [Humalog KwikPen] See Protocol SC ACHS insuln.pen 12/28/20 Oxycodone [Oxyir] 5 mg PO Q4H PRN PRN 2 Days #5 tab 12/28/20 Polyethylene Glycol 3350 [Miralax] 17 gm PO DAILY packet 12/28/20 Potassium Chloride Oral Tablet [K-Dur] 20 meq PO DAILY #0 12/28/20
--- NOTE | 2020-12-28 12:31 | PCM.PN.SRG ---
Patient Problems: Active and Suspected Problems (Last Reviewed 10/27/20 @ 11:[address] Will Mason MD) Diabetic ketoacidosis associated with type 1 diabetes mellitus (Acute) Abscess of left thigh (Acute) Nonhealing surgical wound (Acute) Left thigh Uncontrolled type 1 diabetes mellitus (Acute) Noncompliance (Acute) Severe sepsis (Acute) Subjective: Postop #4 Patient sitting up in chair eating lunch. - Physical Exam Vitals/I&O's: Vital Signs Temp Pulse Resp BP Pulse Ox 98.8 F 104 H 16 108/60 98 12/28/20 11:14 12/28/20 11:14 12/28/20 11:14 12/28/20 11:14 12/28/20 11:14 Oxygen Flow Rate (L/min) 15 Oxygen Delivery Method Room Air Weight: 173 lb 4.533 oz Body Mass Index (BMI) 20.0 Finger Stick Blood Glucose 138 Intake and Output for Last 24 Hours 12/26/20 12/27/20 12/28/20 23:59 23:59 23:59 Intake Total 1270 / 1510 2914 / 2914 462 / 462 Output Total 2950 / 2950 4500 / 4500 925 / 925 Balance -1680 / -1440 -1586 / -1586 -463 / -463 General: Alert, Cooperative HEENT: Atraumatic Oral: Moist Mucosa Lungs: Normal air movement Cardiovascular: Regular rate Extremities: Capillary Refill Less than 3 Seconds Skin: Ulcer/ Wound - Left posterior thigh wound VAC dressing intact to 150 mmHg suction. Musculoskeletal: No Tenderness to Palpation of Joints or Extremities Neurological: Cranial nerves II-XII grossly intact Psych/Mental Status: Normal Affect, Appropriate Microbiology Past 72 Hours 12/24/20 Unknown Wound Abcess - Leg, Left Gram Stain - Final 12/24/20 Unknown Wound Abcess - Leg, Left Wound Culture - Preliminary Possible Fungus Klebsiella pneumoniae sp pneum 12/24/20 Unknown Wound Abcess - Leg, Left Anaerobic Culture - Preliminary Checking for anaerobes, further studies to follow. 12/24/20 11:15 Wound - Leg, Left Gram Stain - Final 12/24/20 11:15 Wound - Leg, Left Wound Culture - Final No growth aerobically. 12/24/20 11:15 Wound - Leg, Left Anaerobic Culture - Preliminary Checking for anaerobes, further studies to follow. 12/24/20 05:45 Urine Catheter - Catheter Urine Culture - Final Culture exhibits no growth. 12/24/20 05:30 Blood Culture (Wb) - Anticubital Right Blood Culture - Preliminary No growth in 48 hours. 12/24/20 05:35 Blood Culture (Wb) - Anticubital Left Blood Culture - Preliminary No growth in 48 hours. Laboratory Results 12/27/20 15:37: POC Glucose 351 H 12/27/20 21:37: POC Glucose 237 H 12/28/20 06:00: WBC 3.5 L, RBC 3.50 L, Hgb 10.6 L, Hct 31.2 L, MCV 89.1, MCH 30.3, MCHC 34.0, RDW Std Deviation 37.6, RDW Coeff of Rabia 11.8, Plt Count 283, MPV 9.2, Immature Gran % (Auto) 0.300, Neut % (Auto) 46.8 L, Lymph % (Auto) 34.6, Swisher % (Auto) 13.1 H, Eos % (Auto) 4.3, Baso % (Auto) 0.9, Absolute Neuts (auto) 1.6 L, Absolute Lymphs (auto) 1.21, Nucleated RBC % 0 12/28/20 06:00: Sodium 136, Potassium 3.7, Chloride 99, Carbon Dioxide 33.0 H, Anion Gap 4 L, BUN 10, Creatinine 0.54 L, Estim Creat Clear Calc 239.51, Est GFR (MDRD) Af Amer 251, Est GFR (MDRD) Non-Af 207, BUN/Creatinine Ratio 18.6, Glucose 316 H, Calcium 8.8, Total Bilirubin 0.50, AST 13 L, ALT 14 L, Alkaline Phosphatase 76, Total Protein 5.7 L, Albumin 2.4 L, Globulin 3.3, Albumin/Globulin Ratio 0.7 L 12/28/20 06:27: POC Glucose 309 H 12/28/20 11:13: POC Glucose 290 H Current Medications Acetaminophen (Acetaminophen 650 Mg/20 Ml Udc) 650 mg PO Q6H PRN PRN PRN Reason: Pain Score 1-3 /Temp>100.7 Al Hydroxide/Mg Hydroxide (Mag Hydrox/Al Hydrox/Simeth 30 Ml Udc) 30 ml PO Q6H PRN PRN PRN Reason: Gastric Burning Albuterol Sulfate (Albuterol 2.5 Mg/3 Ml Vial.Neb.) 2.5 mg INHALATION Q2H PRN PRN PRN Reason: Dyspnea, wheezing Bisacodyl (Bisacodyl 5 Mg Tablet) 10 mg PO DAILY PRN PRN PRN Reason: Constipation Calamine/Phenol (Menthol/Lanolin/Calamine/Znox 113 Gm Tube) 1 applic TOPICAL TID [facility]; Protocol Last Admin: 12/28/20 05:26 Dose: Not Given Documented by: Dextrose (Dextrose 50%-Water 25 Gm/50 Ml Disp.Syrin) 0 gm IV X1 PRN; Protocol PRN Reason: HYPOGLYCEMIA Dextrose (Dextrose 50%-Water 25 Gm/50 Ml Disp.Syrin) 0 gm IV X1 PRN; Protocol PRN Reason: Hypoglycemia Docusate Sodium (Docusate Sodium 100 Mg Capsule) 200 mg PO BID PRN PRN PRN Reason: Constipation Doxycycline Monohydrate (Doxycycline 100 Mg Capsule) 100 mg PO BID [facility] Last Admin: 12/28/20 09:08 Dose: 100 mg Documented by: Enoxaparin Sodium (Enoxaparin 40 Mg/0.4 Ml Syringe) 40 mg SC DAILY [facility] Last Admin: 12/28/20 09:07 Dose: 40 mg Documented by: Famotidine (Famotidine 20 Mg Tablet) 20 mg PO BID [facility] Last Admin: 12/28/20 09:08 Dose: 20 mg Documented by: Glucagon (Glucagon 1 Mg/Ml Syringe) 1 mg IM .X1 PRN PRN Reason: Hypoglycemia Hydralazine HCl (Hydralazine 20 Mg/Ml Vial) 10 mg IV Q4H PRN PRN PRN Reason: SBP > 160 Sodium Chloride () 250 mls @ 15 mls/hr IV .[id number] PRN PRN Reason: Saline Flush Last Admin: 12/28/20 05:27 Dose: 15 mls/hr Documented by: Sodium Chloride () 250 mls @ 15 mls/hr IV .[id number] PRN PRN Reason: Additional IVPB Infusion Last Infusion: 12/28/20 05:32 Dose: Infused Documented by: Ampicillin Sodium/Sulbactam (Sodium 3 gm/ Sodium Chloride) 112 mls @ 150 mls/hr IV Q8 [facility] Last Infusion: 12/28/20 06:18 Dose: Infused Documented by: Fluconazole (Diflucan) 200 mg in 100 mls @ 100 mls/hr IV Q24 [facility] Last Infusion: 12/28/20 10:20 Dose: Infused Documented by: Insulin Glargine (Insulin Glargine 100 Units/Ml Pen) 35 units SC BID [facility] Last Admin: 12/28/20 09:08 Dose: 35 u Documented by: Insulin Human Lispro (Insulin Lispro 100 Unit/Ml Insuln.Pen) 0 unit SC ACHS [facility]; Protocol Last Admin: 12/28/20 11:22 Dose: 9 units Documented by: Insulin Human Lispro (Insulin Lispro 100 Unit/Ml Insuln.Pen) 10 unit SC TIDAC [facility] Last Admin: 12/28/20 11:22 Dose: 10 units Documented by: Morphine Sulfate (Morphine 2 Mg/Ml Syringe) 2 - 4 mg IV Q4H PRN PRN PRN Reason: Pain Score 6-10 Last Admin: 12/27/20 18:44 Dose: 2 mg Documented by: Morphine Sulfate (Morphine 4 Mg/Ml Syringe) 2 - 4 mg IV Q4H PRN PRN PRN Reason: Pain Score 6-10 Nutritional Formula (Lactose Free) (Glucerna Shake 120 Ml Liquid) 120 ml PO 4X/DAY [facility] Last Admin: 12/28/20 09:09 Dose: 120 ml Documented by: Ondansetron HCl (Ondansetron 4 Mg/2 Ml Vial) 4 mg IV Q8H PRN PRN PRN Reason: Nausea Oxycodone HCl (Oxycodone 5 Mg Tablet) 5 mg PO Q4H PRN PRN PRN Reason: Pain Score 6-10 Last Admin: 12/28/20 09:06 Dose: 5 mg Documented by: Polyethylene Glycol (Polyethylene Glycol 3350 17 Gm Packet) 17 gm PO DAILY [facility] Last Admin: 12/28/20 09:15 Dose: Not Given Documented by: Prochlorperazine Edisylate (Prochlorperazine 10 Mg/2 Ml Vial) 10 mg IV Q6H PRN PRN PRN Reason: Nausea/Vomiting Sodium Chloride (0.9% Saline Lock 10 Ml Syringe) 10 - 40 ml IV UD PRN PRN Reason: SALINE FLUSH Last Admin: 12/26/20 08:56 Dose: 30 ml Documented by: Medical Necessity - Tobacco Use Smoking Status: Never smoker Assessment/Plan All Active Problems (Last Reviewed 10/27/20 @ 11:[address] Will Mason MD) Diabetic ketoacidosis associated with type 1 diabetes mellitus (Acute) Abscess of left thigh (Acute) Nonhealing surgical wound (Acute) Uncontrolled type 1 diabetes mellitus (Acute) Noncompliance (Acute) Severe sepsis (Acute) 1. Nonhealing infected necrotic diabetic ulcer with abscess left posterior thigh including necrotic muscle. 2. Diabetic ketoacidosis associated with Type I Diabetes mellitus. 3. Sepsis. 4. Type I Diabetes mellitus, uncontrolled. 5. HgbA1c >14. 6. s/p surgical preparation left posterior thigh with incision and drainage and excisional debridement nonhealing infected necrotic diabetic ulcer with abscess including necrotic muscle (276 cm2). Operative cultures show possible fungus and Klebsiella pneumoniae. Cultures from last debridement on 12/10/20 showed Enterobacter cloacae, Klebsiella pneumoniae, Staphylococcus haemolyticus, and Anaerobic cocci. ID consulted. He is currently on Doxycycline, Unasyn and Diflucan. Left posterior thigh ulcer is stable. No active bleeding. Wound VAC in place. Anticipate increased metabolic demands from the infection and from the ulcer. Prealbumin is 10.1 on 12/27/20. Encourage nutritional supplementation with protein after he is extubated. After discharge, can followup at the Wound Center. If there is a plateau in the healing process, can proceed with delayed closure with skin grafting. However, before a skin graft can be done, the HgbA1c has to be less than 8. At present it is >14. He will be discharged to an [facility] once a bed is found and approved.
--- NOTE | 2020-12-28 14:46 | NURSING ---
report given to gold at [facility] packed up and sent with patient grandmother took p[atient to [place]
--- NOTE | 2020-12-28 14:52 | CASEMGMT ---
VERNON received a call from Zoraida at [facility] and they can accept patient. VERNON faxed orders to [facility]. VERNON let patient and his family know that [facility] can take patient. [facility] is okay with family transporting. VERNON let patient and his family know this and they will take him. Convalescent was completed on . VERNON called Zoraida and let her know patient will be leaving in the next 20 minutes. Plan: d/c to [facility] under intermediate level of care on a convalescent stay. Family transported him via private vehicle. Marie KRUGER PATIENT OFFICE REP
--- NOTE | 2020-12-28 15:09 | NURSING ---
wound photo: left posterior thigh
== END 2020-12-28 14:40 | disposition skilled nursing facility (03) | DRG 710 ==
LOC: ED 06:37 → ICU 07:01 → PCU 12-26 09:03
PROVIDERS: Family Medicine; Internal Medicine Critical Care Medicine; Internal Medicine Infectious Disease; Surgery; Admitting Provider Student in an Organized Health Care Education/Training Program; Emergency Provider Emergency Medicine; PCP Pediatrics; Visit Provider Hospitalist
PROC: 0KBR0ZZ Excision of Left Upper Leg Muscle, Open Approach (ICD-10-PCS; principal; 2020-12-24 13:35)
DX: A41.59 Other Gram-negative sepsis (principal); E10.10 Type 1 diabetes mellitus with ketoacidosis without coma; L02.416 Cutaneous abscess of left lower limb; Z91.19 Patient's noncompliance with other medical treatment and regimen; K21.9 Gastro-esophageal reflux disease without esophagitis; Z65.9 Problem related to unspecified psychosocial circumstances; R65.20 Severe sepsis without septic shock; T81.89XA Other complications of procedures, not elsewhere classified, initial encounter; Y83.9 Surgical procedure, unspecified as the cause of abnormal reaction of the patient, or of later complication, without mention of misadventure at the time of the procedure; J96.01 Acute respiratory failure with hypoxia; E10.52 Type 1 diabetes mellitus with diabetic peripheral angiopathy with gangrene; E10.622 Type 1 diabetes mellitus with other skin ulcer; G93.41 Metabolic encephalopathy; L97.123 Non-pressure chronic ulcer of left thigh with necrosis of muscle; J45.909 Unspecified asthma, uncomplicated; N17.9 Acute kidney failure, unspecified; B96.1 Klebsiella pneumoniae [K. pneumoniae] as the cause of diseases classified elsewhere; E87.6 Hypokalemia; Y83.8 Other surgical procedures as the cause of abnormal reaction of the patient, or of later complication, without mention of misadventure at the time of the procedure; E10.65 Type 1 diabetes mellitus with hyperglycemia; Z79.4 Long term (current) use of insulin; Z79.51 Long term (current) use of inhaled steroids; Z79.899 Other long term (current) drug therapy
CPT/HCPCS: 11042; 11045; 31500; 36415; 36600; 51702; 71045; 73552; 80048; 80053; 80202; 80307; 81001; 82009; 82550; 82803; 82962; 83036; 83605; 83735; 84134; 84478; 85025; 85610; 85730; 87040; 87070; 87075; 87077; 87086; 87102; 87186; 87205; 87206; 87426; 87640; 88304; 88305; 88312; 93005; 94002; 94003; 94660; 97110; 97116; 97162; 97166; 97530; 97535; 97605; 97802; 97803; 99213; 99251; 99285; J7030; J7040; J7050; J7120; A4216; G0463; J0295; J0330; J3010

== ENCOUNTER 2021-01-24 09:15 | Inpatient (IN) | payer MEDICAID, SELFPAY ==
[2021-01-21 12:55] VITALS: BMI 23.1
[2021-01-24] VITALS (24 sets, daily range): BP systolic 102–152; BP diastolic 59–102; PULSE 113–144; RESP 24–33; TEMP 35.9–36.4; O2SAT 95–100; BMI 23.8; BMI 21.4
--- NOTE | 2021-01-24 09:30 | EKG12_ITS ---
Test Reason : DKA Blood Pressure : / mmHG Vent. Rate : 128 BPM Atrial Rate : 128 BPM P-R Int : 128 ms QRS Dur : 096 ms QT Int : 320 ms P-R-T Axes : 078 092 072 degrees QTc Int : 467 ms Sinus tachycardia Rightward axis Borderline ECG Confirmed by YANE CASTILLO, ROXANNE ([id number]), story editor AYESHA VALLE ([id number]) on 01/26/2021 10:13:28 AM Referred By: JAMES Confirmed By:ROXANNE CHE MD
--- NOTE | 2021-01-24 09:33 | ED.VIS.GEN ---
History of Present Illness Chief Complaint: Nausea/Vomiting Detail of Chief Complaint: Exam vomiting started last evening, elevated blood sugars Informant: Patient, Family Onset: Yesterday Context: Sudden Onset Timing: Continuous Quality: Dyspnea, nausea and vomiting Location: Home Current Severity: Severe Maximum Severity: Severe Worsened by: Suspect DKA Relieved by: Nothing Associated Symptoms: Weakness, thirst, decreased urine output, orthostatic symptoms. Narrative: Patient is a 20-year-old type I diabetic who presents with shortness of breath, nausea and vomiting and elevated blood sugar. Symptoms started yesterday. He presents today because he cannot keep anything down. He is breathing rapidly. He does not appear well. He denies fever, chills night sweats. He denies URI symptoms. He does complain of slight cough. He does report nausea and vomiting without hematemesis. He denies diarrhea, melena or maroon-colored stool. He does report decreased urine output. He states he is thirsty. He denies skin lesions. He reports prior history of DKA. Prior similar symptoms: Yes Recent Illness/Hospitalization: No - Past Medical History (1) Asthma Status: Chronic (2) DKA, type 1 Status: Chronic (3) GERD (gastroesophageal reflux disease) Status: Chronic (4) Psychosocial problem Status: Chronic Past Medical History - Allergies and Home Meds Allergies/Adverse Reactions: Allergies No Known Allergies Allergy (Verified 01/21/21 13:07) Primary Care Physician: Tori Butler MD [Primary Care Provider] - Prior records reviewed: Yes Surgical History: noncontributory, - - Right knee surgery. Lives: With Family Smoking Status: Never smoker Alcohol: None Drugs: None - Family History Maternal Family History: Family History (Last Reviewed 10/27/20 @ 11:[address] Will Mason MD) Other Asthma CVA (cerebral vascular accident) Diabetes Hypertension Thyroid disorder Family History: Reports: - - Patient with no market maternal or paternal family history including heart disease, diabetes, cancer. Paternal Family History: Family History (Last Reviewed 10/27/20 @ 11:[address] Will Mason MD) Other Asthma CVA (cerebral vascular accident) Diabetes Hypertension Thyroid disorder Family History: Reports: - - Patient with no market maternal or paternal family history including heart disease, diabetes, cancer. Review of Systems General: Reports: Malaise. Denies: Chills, Fever, Subjective, Sweats Eyes: Reports: Visual changes - bilaterally. Denies: Blurred Vision - bilaterally ENT: Reports: - - Dry mouth and thirst. Denies: Bilateral ear pain, Rhinorrhea, Sore throat Cardiovascular: Denies: Chest pain, Palpitations Respiratory: Reports: Dyspnea, Cough, Dyspnea on exertion. Denies: Sputum, Orthopnea, Paroxysmal nocturnal dyspnea Gastrointestinal: Reports: Abdominal pain, Nausea, Vomiting. Denies: Diarrhea, Melena, Hematochezia Genitourinary: Denies: Dysuria, Hematuria, Frequency Musculoskeletal: Denies: Myalgias, Arthralgias, Neck pain, Back pain, Swelling, Extremity Pain Skin: Denies: Rash, Wounds Neurological: Reports: Weakness. Denies: Headache Psych: Reports: Depression Endocrine: Reports: Polydipsia. Denies: Polyuria, Heat intolerance Hematologic: Denies: Easy bruising, Easy bleeding Allergy: Reports: Uticaria Physical Exam Vital Signs/Narrative: Vital Signs Temp Pulse Resp BP Pulse Ox 01/24/21 09:16 97.1 F L 113 H 24 H 150/97 H 97 Inital Vital Signs reviewed: Yes General: Well developed, Cachectic. Negative for: Well nourished Head: Normocephalic, Atraumatic, - - Temporal wasting Eyes: Perrl, EOMI. Negative for: Pale conjunctiva, Scleral icterus ENT: No rhinorrhea, TM's clear, Dry mucous membranes Neck: Supple, Nontender, No lymphadenopathy, No JVD Cardiovascular: Regular rhythm, No murmurs, Normal S1, Normal S2, Tachycardia Respiratory: No distress, CTA bilaterally, Chest nontender Abdomen: Soft, Nondistended, Normal bowel sounds, No masses, Tender. Negative for: Guarding, Rebound tenderness Rectal: Deferred Back: Nontender, Normal Inspection. Negative for: CVA tenderness Extremities: Nontender, No edema, - - VAC was evaluated and there is no obvious source of infection Skin: No rash, No Trauma. Negative for: Normal color, Cyanosis, Diaphoresis, Jaundice Neurological: Alert, Oriented x3, Cranial nerves II-XII grossly intact, Normal Strength, Normal Sensation Psychological: Depressed Diagnostic/Tx/Re-eval Chest X-Ray - ED: 1 View, Read by ED Physician, Normal, Heart, Mediastinum, Bony Structures, No Acute Disease, Chronic Changes, - - There is hyper aeration otherwise unremarkable. Impressions Chest X-Ray 01/24/21 11:40 IMPRESSION: No acute cardiopulmonary findings Electronically Signed: Diogenes Terry, at 12:03 EDT Tel , Service support , 01/24/21 11:40 Chest 1 View (Portable) [RAD] Stat Laboratory Results 01/24/21 01/24/21 01/24/21 09:39 10:00 10:00 WBC 36.8 H* RBC 6.68 H Hgb 19.2 H* Hct 57.5 H MCV 86.1 MCH 28.7 MCHC 33.4 RDW Std Deviation 39.9 RDW Coeff of Rabia 13.2 Plt Count 787 H* MPV 10.2 Neut % (Auto) Not Reportable Absolute Neuts (auto) 26.5 H Absolute Lymphs (auto) 5.52 H Total Counted 100 Neutrophils % (Manual) 68 Band Neutrophils % 4 Lymphocytes % (Manual) 15 L Monocytes % (Manual) 11 H Metamyelocytes % 1 Myelocytes % 1 H Diff Path Review May foll Platelet Estimate MKD INC PT INR APTT Specimen Type VBG pH VBG pO2 VBG HCO3 VBG Total CO2 VBG O2 Sat (Calc) VBG Base Excess POC Mix VBG pCO2 Pt Tmp Crit Call To/Read Back Sodium Cancelled Potassium Cancelled Chloride Cancelled Carbon Dioxide Cancelled Anion Gap Cancelled BUN Cancelled Creatinine Cancelled Estim Creat Clear Calc Cancelled Est GFR (MDRD) Af Amer Cancelled Est GFR (MDRD) Non-Af Cancelled BUN/Creatinine Ratio Cancelled Glucose Cancelled Calcium Cancelled Magnesium Cancelled Total Bilirubin Cancelled AST Cancelled ALT Cancelled Alkaline Phosphatase Cancelled Total Protein Cancelled Albumin Cancelled Globulin Cancelled Albumin/Globulin Ratio Cancelled Urine Color Urine Clarity Urine pH Ur Specific [place] Urine Protein Urine Glucose (UA) Urine Ketones Urine Occult Blood Urine Nitrite Urine Bilirubin Urine Urobilinogen Ur Leukocyte Esterase Urine RBC Urine WBC Ur Squamous Epith Cells Urine Bacteria Urine Mucus Acetone Level POC Glucose 426 H 01/24/21 01/24/21 01/24/21 10:00 10:07 10:21 WBC RBC Hgb Hct MCV MCH MCHC RDW Std Deviation RDW Coeff of Rabia Plt Count MPV Neut % (Auto) Absolute Neuts (auto) Absolute Lymphs (auto) Total Counted Neutrophils % (Manual) Band Neutrophils % Lymphocytes % (Manual) Monocytes % (Manual) Metamyelocytes % Myelocytes % Diff Path Review Platelet Estimate PT INR APTT Specimen Type MARILYNN VBG pH 6.75 L* VBG pO2 50 H VBG HCO3 5 L VBG Total CO2 6 L VBG O2 Sat (Calc) 48 L VBG Base Excess < -30 L POC Mix VBG pCO2 Pt Tmp 34.5 L Crit Call To/Read Back Yes Sodium Potassium Chloride Carbon Dioxide Anion Gap BUN Creatinine Estim Creat Clear Calc Est GFR (MDRD) Af Amer Est GFR (MDRD) Non-Af BUN/Creatinine Ratio Glucose Calcium Magnesium Total Bilirubin AST ALT Alkaline Phosphatase Total Protein Albumin Globulin Albumin/Globulin Ratio Urine Color Yellow Urine Clarity Clear Urine pH 5.0 Ur Specific Cary 1.025 Urine Protein 100 H Urine Glucose (UA) 1000 H Urine Ketones 150 H Urine Occult Blood 50 H Urine Nitrite Negative Urine Bilirubin Negative Urine Urobilinogen Normal Ur Leukocyte Esterase Negative Urine RBC 0-5 SEEN Urine WBC 0 SEEN Ur Squamous Epith Cells 0 SEEN Urine Bacteria 0 SEEN Urine Mucus 0 SEEN Acetone Level SMALL H POC Glucose 01/24/21 01/24/21 01/24/21 11:20 11:53 12:05 WBC RBC Hgb Hct MCV MCH MCHC RDW Std Deviation RDW Coeff of Rabia Plt Count MPV Neut % (Auto) Absolute Neuts (auto) Absolute Lymphs (auto) Total Counted Neutrophils % (Manual) Band Neutrophils % Lymphocytes % (Manual) Monocytes % (Manual) Metamyelocytes % Myelocytes % Diff Path Review Platelet Estimate PT 17.5 H INR 1.5 APTT 28.5 Specimen Type VBG pH VBG pO2 VBG HCO3 VBG Total CO2 VBG O2 Sat (Calc) VBG Base Excess POC Mix VBG pCO2 Pt Tmp Crit Call To/Read Back Sodium 129 L Potassium 4.9 Chloride 100 Carbon Dioxide 6.0 L* Anion Gap 23 H BUN 25 H Creatinine 1.58 H Estim Creat Clear Calc 84.28 Est GFR (MDRD) Af Amer 72 Est GFR (MDRD) Non-Af 60 BUN/Creatinine Ratio 15.8 Glucose 492 H* Calcium 9.3 Magnesium 2.6 Total Bilirubin 1.00 AST 20 ALT 19 Alkaline Phosphatase 147 H Total Protein 8.7 H Albumin 4.6 Globulin 4.1 Albumin/Globulin Ratio 1.1 Urine Color Urine Clarity Urine pH Ur Specific [place] Urine Protein Urine Glucose (UA) Urine Ketones Urine Occult Blood Urine Nitrite Urine Bilirubin Urine Urobilinogen Ur Leukocyte Esterase Urine RBC Urine WBC Ur Squamous Epith Cells Urine Bacteria Urine Mucus Acetone Level POC Glucose > 500 H* - EKG Initial EKG Interpretation: Sinus Tachycardia - Sinus tachycardia with a ventricular rate of 128. DE interval 120 ms. His duration 96 ms. QT duration 320 ms. [place] to the right. There is no peaked T waves. - Medical Decision Making Patient has Kussmaul respiratory pattern. Concern patient's DKA since I am able to smell ketones on his breath. He appears dehydrated. The DKA order set was started. Nurse was informed not to start insulin till 2 L of normal saline has infused. KG was obtained to determine if there is any changes consistent with hyperkalemia. VBG was ordered as well as appropriate blood work. He complains of cough chest x-ray was obtained to rule out pneumonia. He has had no exposure to Covid. - Critical Care Time Critical care time (excluding procedures): 30-74 minutes - Critical care time 34 minutes, which included obtaining history from patient and mother, documentation, review of prior records, interpretation of laboratory results initiation of therapy, Discussing w/Patient &/or Family/Church History Teacher, Discussing w/Consultants, Arranging Admission or Transfer Procedures Procedure(s): Patient was verbally consented because of acuity for central line. IJ was not attempted because the internal jugular vein was collapsed. Patient was prepped draped for a right subclavian line. He was explained risk benefits of right subclavian over IJ and I informed him that I was more concerned of causing harm attempting an IJ because the vessel was collapsed. Patient was prepped draped sterile manner. The right subclavian vein was cannulated assess for in the first attempt on the way in. Using Seldinger technique a 7.5 Georgian triple-lumen was placed. The line was secured. Blood was aspirated from all 3 ports. ED Disposition - Plan for ED Patient: Disposition: Acute Care Hospital [facility] Diagnosis: Diabetic ketoacidosis associated with type 1 diabetes mellitus, Sinus tachycardia seen on bus monitor, Nausea and vomiting, SIRS (systemic inflammatory response syndrome), Lactic acidosis, Unspecified open wound, left thigh, subsequent encounter, Hyperkalemia Referrals: Tori Butler MD [Primary Care Provider] -
[2021-01-24 09:45] LABS: Bedside Glucose 426 mg/dL (70-110)
[2021-01-24] MEDS: 0.9% Normal Saline 1,000 ML 999 ML IV ×2 (10:10→11:22)
--- NOTE | 2021-01-24 10:12 | CPS ---
VBG ran at 10:12, critical values were seen Dr. Harper notified
[2021-01-24 10:18] LABS: Hemoglobin 19.2 g/dL (13.0-16.5); Mean Corp Hgb Conc 33.4 g/dL (32-36); Mean Corpuscular Hgb 28.7 pg (27.0-32.0); Mean Corpuscular Volume 86.1 fL (80-94); Mean Platelet Vol. 10.2 fl (6.2-12.0); POSITIVE COUNT YES; POSITIVE DIFFERENTIAL YES; POSITIVE MORPHOLOGY YES; Platelet Count 787 K/mm3 (150-450); RBC Distribution Width CV 13.2 % (11.6-14.6); RBC Distribution Width SD 39.9 fl (35.1-43.9); Red Blood Count 6.68 M/mm3 (4.6-6.2); White Blood Count 36.8 K/mm3 (4.4-11.0)
[2021-01-24 10:19] LABS: Hematocrit 57.5 % (40-54)
[2021-01-24 10:20] LABS: Differential Indicated MANUAL DIFF
[2021-01-24 10:27] LABS: Bacteria 0 SEEN /hpf (None Seen); Mucous, Urine 0 SEEN /hpf (<or=2+); Squamous Epithelial Cells - UA 0 SEEN /hpf (0-5); White Blood Cells 0 SEEN /hpf (0-5)
[2021-01-24 10:28] LABS: Color, Urine Yellow (Yellow); Glucose, Dipstick 1000 mg/dl (Normal); Leukocyte Esterase-Dipstick Negative /ul (Negative); Nitrite-Dipstick Negative (Negative); Occult Blood-Urine 50 /ul (Negative); Protein-Dipstick 100 mg/dl (Negative); Specific Gravity, Urine 1.025 (1.002-1.030); Urine Bilirubin Dipstick Negative (Negative); Urine Clarity Clear (Clear); Urine Urobilinogen Normal (Normal)
[2021-01-24 10:34] LABS: Red Blood Cells-Urine 0-5 SEEN /hpf (0-5)
[2021-01-24 10:37] LABS: Ketone-Dipstick 150 mg/dl (Negative)
[2021-01-24 10:38] LABS: Lymphocyte 15 % (19-41); Metamyelocyte 1 % (0-1); Monocyte 11 % (0-10); Myelocyte 1 (0-0); Neutrophil-Band 4 % (0-5); Neutrophil-Segmented 68 % (47-70); Total Cells Counted 100 (MANUAL DIFF)
[2021-01-24 10:40] LABS: Platelet Estimate MKD INC (ADEQ)
[2021-01-24 10:42] LABS: Absolute Lymphocyte Count 5.52 X10^3/uL (0.83-4.51); Absolute Neutrophil Count 26.5 X10^3/uL (2.0-7.7)
[2021-01-24 10:49] LABS: Blood Gas Specimen Type VEN; VBG BASE EXCESS < -30 mmol/L (-1.0-3.5); VBG Bicarbonate 5 mmol/L (22-26); VBG PO2 50 mmHg (25-40); VBG SO2 48 % (50-70); VBG TCO2 6 mmol/L (23-33); VBG pCO2 34.5 mmHg (41-51); VBG pH 6.75 (7.32-7.42)
[2021-01-24] MEDS: Sodium Bicarbonate 8.4% 50 ML Syringe 50 MEQ IV (11:23)
--- NOTE | 2021-01-24 11:40 | RAD_ITS ---
STUDY: X-RAY CHEST REASON FOR EXAM: Male, 20 years old. dyspnea TECHNIQUE: Single AP portable view of the chest. COMPARISON: 12/24/2020. FINDINGS: Cardiac silhouette unremarkable. Pulmonary vascularity unremarkable. Aorta unremarkable. No focal patchy airspace opacities. No pleural effusions. Upper abdomen unremarkable. Osseous structures intact. No pneumothorax. RAD/Chest 1 View (Portable) IMPRESSION: No acute cardiopulmonary findings Electronically Signed: Diogenes Terry DO at 12:03 EDT Tel , Service support ,
[2021-01-24 12:07] LABS: ALB/GLOB Ratio 1.1 RATIO (0.9-2.4); AST(SGOT) 20 U/L (15-37); Alanine Aminotransfer ALT/SGPT 19 U/L (16-61); Albumin, Serum 4.6 g/dL (3.2-5.0); Alkaline Phosphatase 147 U/L (45-117); Anion Gap 23 (5-15); BUN 25 mg/dL (7-18); BUN/Creat Ratio 15.8 RATIO (10-20); Calcium,Total 9.3 mg/dL (8.5-10.1); Chloride 100 mmol/L (98-107); Creatinine, Serum 1.58 mg/dL (0.70-1.30); EST Glomerular Filtration Rate 60 mL/min (>60); Est Glom Filt Rate - Afr Amer 72 mL/min (>60); Estimated Creatinine Clearance 84.28 ml/min; Globulin 4.1 g/dL (2.2-4.2); Glucose 492 mg/dL (74-106); Magnesium 2.6 mg/dL (1.6-2.6); Potassium 4.9 mmol/L (3.5-5.1); Protein, Total 8.7 g/dL (6.4-8.2); Sodium Level 129 mmol/L (136-145)
[2021-01-24 12:10] LABS: International Normalized Ratio 1.5; Prothrombin Time (Protime)PT. 17.5 SECONDS (11.7-14.9)
[2021-01-24 12:11] LABS: Partial Thromboplast Time 28.5 Seconds (24.1-36.2)
[2021-01-24 12:11] LABS: Bedside Glucose > 500 mg/dL (70-110)
[2021-01-24 12:45] LABS: Lactic Acid 4.8 mmol/L (0.4-1.9)
[2021-01-24 13:26] LABS: Bedside Glucose 469 mg/dL (70-110)
--- NOTE | 2021-01-24 14:05 | RAD_ITS ---
EXAM: XR CHEST, 1 VIEW CLINICAL INDICATION: central line placement TECHNIQUE: Frontal view of the chest. This report was created using [employer] report generation technology. COMPARISON: None. FINDINGS: LUNGS AND PLEURAL SPACES: Unremarkable. No consolidation or edema. No pneumothorax. No effusion. HEART: Unremarkable. Cardiac silhouette not enlarged. MEDIASTINUM: Central airways and mediastinal contour are unremarkable. BONES/JOINTS: Unremarkable. SOFT TISSUES: Unremarkable. TUBES, LINES AND DEVICES: Right subclavian central venous catheter with tip terminating in the lower SVC. RAD/CXR for Line Placement IMPRESSION: Right subclavian central venous catheter with tip terminating in the lower SVC. No pneumothorax. Electronically Signed: Dmitry Dave MD ([place]) at 14:46 EDT , Service support ,
[2021-01-24] MEDS: Lactated Ringers 1,000 ML 999 ML IV (14:34)
[2021-01-24] MEDS: 0.9% Saline Lock 10 ML Syringe IV ×2 (14:34→16:21)
--- NOTE | 2021-01-24 14:39 | CON.PCM_ITS ---
Problem List (1) SIRS (systemic inflammatory response syndrome) Status: Acute (2) Lactic acidosis Status: Acute (3) Diabetic ketoacidosis associated with type 1 diabetes mellitus Status: Acute (4) Noncompliance Status: Chronic (5) Noncompliance with diabetes treatment Status: Chronic (6) Asthma Status: Chronic Qualifiers: (7) GERD (gastroesophageal reflux disease) Status: Chronic Qualifiers: Esophagitis presence: esophagitis presence not specified Qualified Code(s): K21.9 - Gastro-esophageal reflux disease without esophagitis (8) Unspecified open wound, left thigh, subsequent encounter Status: Acute Reason for Consult Date of Consultation: 01/24/21 Reason for Consultation: DKA History of Present Illness: The patient is a 20 year old M, with past medical history listed below, who presented to [facility] on 01/24/2021 secondary to nausea and vomiting with elevated blood sugars. Patient has had multiple admissions secondary to DKA with similar type presentation. Patient states he started to have symptoms on the day prior to presentation. Patient was unable to keep any liquids down so presented feeling that he was dehydrated. Patient did have a slight cough, but denied any fever, chills or change in bowel movements. Patient does report decreased urination and thirst. Patient does have a history of a thigh abscess with a wound VAC in place. Patient was to go to the wound center today for a change. Wound VAC is currently filled with an alarm going on. Patient states that he was not feeling more discomfort from that area prior to presentation. In the ER, patient was noted to be tachycardic and hypertensive at 113 bpm and a blood pressure of 150/97. Patient saturating well on room air. Chest x-ray was unremarkable except for some hyperinflation. Laboratory work-up showed a significant hemoconcentration with a white blood cell count of 36.8, hemoglobin of 19.2 and platelet count of 787. Initial blood glucose was noted over 400 and VBG showed a pH is 6.75. Urinalysis was unremarkable. INR was slightly el evated at 1.5. Patient's bicarbonate was low at 6 with an elevated creatinine of 1.58 and relatively normal liver function studies. EKG showed sinus tachycardia. Patient was given 2 L of IV fluids and initiated on insulin. Patient did have a central line placed for access. Patient states that this feels like his typical DKA. Patient readily admits that he forgets to check his sugar and cover with insulin frequently. Patient is not reporting any increased pain at the wound VAC site. Patient denies any recent exposures. No change in dietary habits have been reported. Patient denies any bloody bowel movements or hematuria. Review of systems otherwise negative from a constitutional, HEENT, respiratory, cardiovascular, GI, genitourinary, musculoskeletal, skin, neurologic, psychiatric and hematologic system unless stated above. Past Medical History Past Medical History (Chronic Problems): Chronic Problems (Last Reviewed 10/27/20 @ 11:[address] 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 Will Mason MD) femur surgery Diabetes mellitus type 1 E10.9 Allergies No Known Allergies Allergy (Verified 01/21/21 13:07) Home Medications: Ambulatory Orders Medication Instructions Recorded Albuterol Inhaler [Ventolin Hfa] 2 puff INHALATION Q4H PRN PRN 02/15/19 Fluticasone 44 Mcg [Flovent 44 Mcg] 2 puff IH BID 11/12/19 Acetaminophen Liquid [Tylenol 650 mg PO Q6H PRN PRN udc 12/28/20 Liquid] Insulin Glargine [Lantus SoloStar 20 unit SC QHS 01/24/21 Pen] Insulin Lispro [Humalog KwikPen] See Protocol ME ACHS 01/24/21 Insulin Lispro [Insulin Lispro 10 unit SC TIDAC MDD 45 01/24/21 Kwikpen U-100] Polyethylene Glycol 3350 [Miralax] 17 gm PO DAILY PRN PRN 01/24/21 Potassium Chloride Oral Tablet 20 meq PO BID 01/24/21 [K-Dur] Surgical History: Surgical History (Last Reviewed 10/27/20 @ 11:[address] Will Mason MD) Hx of knee surgery Z98.890 Surgical History: noncontributory, - - Right knee surgery. Psychiatric History: No pertinent psych hx Lives: With Family Smoking Status: Never smoker Alcohol: None Drugs: None - *Family History Maternal Family History: Family History (Last Reviewed 10/27/20 @ 11:[address] Will Mason MD) Other Asthma CVA (cerebral vascular accident) Diabetes Hypertension Thyroid disorder History Items: - - Patient with no market maternal or paternal family history including heart disease, diabetes, cancer. Paternal Family History: Family History (Last Reviewed 10/27/20 @ 11:[address] Will Mason MD) Other Asthma CVA (cerebral vascular accident) Diabetes Hypertension Thyroid disorder History Items: - - Patient with no market maternal or paternal family history including heart disease, diabetes, cancer. Review of Systems Comment: See HPI Patient Problems: Active and Suspected Problems (Last Reviewed 10/27/20 @ 11:[address] Will Mason MD) Sinus tachycardia seen on director of cardiac rehabilitation (Acute) Nausea and vomiting (Acute) SIRS (systemic inflammatory response syndrome) (Acute) Lactic acidosis (Acute) Unspecified open wound, left thigh, subsequent encounter (Acute) Hyperkalemia (Acute) Diabetic ketoacidosis associated with type 1 diabetes mellitus (Acute) Objective: All imaging was personally reviewed. No infiltrates noted on chest x-ray. - Physical Exam Vitals/I&O's: Vital Signs Temp Pulse Resp BP Pulse Ox 36.0 C L 137 H 27 H 152/89 H 100 01/24/21 13:15 01/24/21 13:15 01/24/21 13:15 01/24/21 13:15 01/24/21 13:15 Oxygen Delivery Method Room Air Weight: 73.5 kg Body Mass Index (BMI) 21.4 Finger Stick Blood Glucose 346 Intake and Output for Last 24 Hours 01/22/21 01/23/21 01/24/21 22:59 23:59 23:59 Intake Total 2117.37 / 2117.37 Balance 7.37 / 7.37 General: Alert, Oriented x3, Cooperative, - - Mild distress. HEENT: Atraumatic, PERRLA, EOMI, Normocephalic, - - Slight scleral injection. Glasses in place. Oral: No Gingival or Mucosal Lesions/ Ulcerations, Dry Mucosa Neck: Supple, No JVD, No Nodes, Trachea Midline Lungs: No rhonchi, No wheeze, No rales, Diminished, - - Fair effort. Symmetric expansion. Cardiovascular: Normal S1, Normal S2, No murmurs, No rub noted, No Gallop, Tachycardic Abdomen: Bowel Sounds Present, Soft, Non Tender, Non-Distended Extremities: No clubbing, No cyanosis, No edema, Capillary Refill Less than 3 Seconds Skin: - - Wound VAC noted in the lateral aspect of the right thigh. Surrounding tissue appears to be clean, dry without striations Musculoskeletal: No Tenderness to Palpation of Joints or Extremities Lymphatic: No Cervical, Supraclavicular, or Inguinal Adenopathy Neurological: Cranial nerves II-XII grossly intact, Neuro grossly intact, Motor Exam 5/5 strength throughout Psych/Mental Status: Anxious, Restless Microbiology Past 72 Hours 01/24/21 13:20 Mucosa - Nose SARS-CoV-2 Antigen (Rapid) - Final Laboratory Results 01/24/21 09:39: POC Glucose 426 H 01/24/21 10:00: WBC 36.8 H*, RBC 6.68 H, Hgb 19.2 H*, Hct 57.5 H, MCV 86.1, MCH 28.7, MCHC 33.4, RDW Std Deviation 39.9, RDW Coeff of Rabia 13.2, Plt Count 787 H* , MPV 10.2, Neut % (Auto) Not Reportable, Absolute Neuts (auto) 26.5 H, Absolute Lymphs (auto) 5.52 H, Total Counted 100, Neutrophils % (Manual) 68, Band Neutrophils % 4, Lymphocytes % (Manual) 15 L, Monocytes % (Manual) 11 H, Metamyelocytes % 1, Myelocytes % 1 H, Diff Path Review Carissa turner Platelet Estimate [employer] 01/24/21 10:00: Sodium Cancelled, Potassium Cancelled, Chloride Cancelled, Carbon Dioxide Cancelled, Anion Gap Cancelled, BUN Cancelled, Creatinine Cancelled, Estim Creat Clear Calc Cancelled, Est GFR (MDRD) Af Amer Cancelled, Est GFR (MDRD) Non-Af Cancelled, BUN/Creatinine Ratio Cancelled, Glucose Cancelled, Calcium Cancelled, Magnesium Cancelled, Total Bilirubin Cancelled, AST Cancelled, ALT Cancelled, Alkaline Phosphatase Cancelled, Total Protein Cancelled, Albumin Cancelled, Globulin Cancelled, Albumin/Globulin Ratio Cancelled 01/24/21 10:00: Acetone Level SMALL H 01/24/21 10:00: Sodium Pending, Potassium Pending, Chloride Pending, Carbon Dioxide Pending, Anion Gap Pending, BUN Pending, Creatinine Pending, Est GFR (MDRD) Af Amer Pending, Est GFR (MDRD) Non-Af Pending, BUN/Creatinine Ratio Pending, Glucose Pending, Calcium Pending 01/24/21 10:07: Specimen Type MARILYNN, VBG pH 6.75 L*, VBG pO2 50 H, VBG HCO3 5 L, VBG Total CO2 6 L, VBG O2 Sat (Calc) 48 L, VBG Base Excess < -30 L, POC Mix VBG pCO2 Pt Tmp 34.5 L, Crit Call To/Read Back Yes 01/24/21 10:21: Urine Color Yellow, Urine Clarity Clear, Urine pH 5.0, Ur Specific [place] 1.025, Urine Protein 100 H, Urine Glucose (UA) 1000 H, Urine Ketones 150 H, Urine Occult Blood 50 H, Urine Nitrite Negative, Urine Bilirubin Negative, Urine Urobilinogen Normal, Ur Leukocyte Esterase Negative, Urine RBC 0-5 SEEN, Urine WBC 0 SEEN, Ur Squamous Epith Cells 0 SEEN, Urine Bacteria 0 SEEN, Urine Mucus 0 SEEN 01/24/21 11:20: Sodium 129 L, Potassium 4.9, Chloride 100, Carbon Dioxide 6.0 L* , Anion Gap 23 H, BUN 25 H, Creatinine 1.58 H, Estim Creat Clear Calc 84.28, Est GFR (MDRD) Af Amer 72, Est GFR (MDRD) Non-Af 60, BUN/Creatinine Ratio 15.8, Glucose 492 H*, Calcium 9.3, Magnesium 2.6, Total Bilirubin 1.00, AST 20, ALT 19, Alkaline Phosphatase 147 H, Total Protein 8.7 H, Albumin 4.6, Globulin 4.1, Albumin/Globulin Ratio 1.1 01/24/21 11:53: PT 17.5 H, INR 1.5, APTT 28.5 01/24/21 11:53: Lactic Acid 4.8 H* 01/24/21 12:05: POC Glucose > 500 H* 01/24/21 13:07: POC Glucose 469 H* Current Medications Insulin Human Lispro 100 unit/ (Sodium Chloride) 100 mls @ 8.21 mls/hr CONT INF .[id number] LILLY; Protocol Last Titration: 01/24/21 14:30 Dose: 3.1 units/hr, 3.1 mls/hr Documented by: Sodium Chloride () 250 mls @ 15 mls/hr IV .[id number] PRN PRN Reason: Saline Flush Sodium Chloride () 250 mls @ 15 mls/hr IV .[id number] PRN PRN Reason: Additional IVPB Infusion Lactated Ringer's () 1,000 mls @ 999 mls/hr IV .[id number] LILLY Stop: 01/24/21 15:30 Last Admin: 01/24/21 14:34 Dose: 999 mls/hr Documented by: Sodium Chloride (0.9% Saline Lock 10 Ml Syringe) 10 - 40 ml IV UD PRN PRN Reason: Multilumen/Benitez Flush Last Admin: 01/24/21 14:34 Dose: 20 ml Documented by: Sodium Chloride (0.9 % Nacl (Sterile) Posiflush 10 Ml) 10 - 40 ml IV UD PRN PRN Reason: Port access or dressing change Clinical Impression(s) from Imaging Studies Chest X-Ray 01/24/21 11:40 IMPRESSION: No acute cardiopulmonary findings Electronically Signed: Diogenes Terry DO at 12:03 EDT Tel , Service support , Assessment/Plan Active and Suspected Problems (Last Reviewed 10/27/20 @ 11:[address] Will Mason MD) Sinus tachycardia seen on director of cardiac rehabilitation (Acute) Nausea and vomiting (Acute) SIRS (systemic inflammatory response syndrome) (Acute) Lactic acidosis (Acute) Unspecified open wound, left thigh, subsequent encounter (Acute) Hyperkalemia (Acute) Diabetic ketoacidosis associated with type 1 diabetes mellitus (Acute) RECOMMENDATIONS: 1. Initiate DKA protocol 2. Aggressive supplementation of electrolytes 3. Aggressive fluid resuscitation with 1 L bolus of LR now 4. Continue antibiotics for 24 hours until further information is available 5. Wound nurse to evaluate and change wound VAC 6. As needed albuterol likely sufficient 7. No further bicarbonate administration IMPRESSIONS: 1. Acute DKA from probable noncompliance Patient does have a known wound in the left thigh. This appears to be uninfected at this time. Await evaluation once wound VAC is removed. Patient can continue on empiric antibiotics. Clinical suspicion for significant hemoconcentration leading to leukocytosis, thrombocytosis and elevated H&H. Aggressive volume resuscitation has been initiated. Will likely require multiple electrolyte replacements. Patient does admit to failure to check blood sugars and adjust sliding scale. 2. Open thigh wound/history of noncompliance/moderate persistent asthma Complicates care, management, recovery and prognosis. Wound nurse to evaluate thigh wound. Patient does not appear to be in acute exacerbation of a sthma at this time. Likely not necessary to use systemic steroids. As needed albuterol is likely sufficient for now. Inpatient E&M: [id number] Init Hosp L3
[2021-01-24 14:51] LABS: Bedside Glucose 346 mg/dL (70-110)
--- NOTE | 2021-01-24 15:03 | HP.PCM_ITS ---
Problem List (1) Sinus tachycardia seen on school bus monitor Status: Acute (2) Nausea and vomiting Status: Acute (3) SIRS (systemic inflammatory response syndrome) Status: Acute (4) Lactic acidosis Status: Acute (5) Unspecified open wound, left thigh, subsequent encounter Status: Acute (6) Hyperkalemia Status: Acute (7) Diabetic ketoacidosis associated with type 1 diabetes mellitus Status: Acute (8) Abscess of left thigh Status: Acute (9) Nonhealing surgical wound Status: Acute Comment: Left thigh (10) Uncontrolled type 1 diabetes mellitus Status: Chronic (11) Noncompliance Status: Chronic (12) Severe sepsis Status: Acute (13) 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 (14) Psychosocial problem Status: Chronic (15) Noncompliance with diabetes treatment Status: Chronic (16) Diabetes Status: Chronic Qualifiers: Diabetes mellitus type: type 1 Diabetes mellitus complication status: with hyperglycemia Qualified Code(s): E10.65 - Type 1 diabetes mellitus with hyperglycemia (17) History of type 1 diabetes mellitus Status: Chronic (18) DKA, type 1 Status: Chronic (19) Asthma Status: Chronic Qualifiers: (20) GERD (gastroesophageal reflux disease) Status: Chronic Qualifiers: Esophagitis presence: esophagitis presence not specified Qualified Code(s): K21.9 - Gastro-esophageal reflux disease without esophagitis History of Present Illness Date of Admission: 01/24/21 Chief Complaint: intractable nausea and vomiting The patient is a 20 year old M presents with intractable nausea and vomiting that began this morning. Patient states that he was feeling fine as of yesterday and then started having the nausea and vomiting today. Patient states that he has been compliant with his medications to me, though he informed critical care medicine that he forgets to check her sugar and cover with insulin frequently. Patient did have significant leukocytosis of 38,000. No obvious source of infection but patient did receive empiric Pipracil/tazobactam and vancomycin in the emergency room. [] Past Medical History Past Medical History (Chronic Problems): Chronic Problems (Last Reviewed 10/27/20 @ 11:[address] 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 Diogenes Jacome DO) Asthma J45.909 femur surgery Diabetes mellitus type 1 E10.9 Allergies No Known Allergies Allergy (Verified 01/21/21 13:07) Home Medications: Ambulatory Orders Medication Instructions Recorded Albuterol Inhaler [Ventolin Hfa] 2 puff INHALATION Q4H PRN PRN 02/15/19 Fluticasone 44 Mcg [Flovent 44 Mcg] 2 puff IH BID 11/12/19 Acetaminophen Liquid [Tylenol 650 mg PO Q6H PRN PRN udc 12/28/20 Liquid] Insulin Glargine [Lantus SoloStar 20 unit SC QHS 01/24/21 Pen] Insulin Lispro [Humalog KwikPen] See Protocol SC ACHS 01/24/21 Insulin Lispro [Insulin Lispro 10 unit SC TIDAC MDD 45 01/24/21 Kwikpen U-100] Polyethylene Glycol 3350 [Miralax] 17 gm PO DAILY PRN PRN 01/24/21 Potassium Chloride Oral Tablet 20 meq PO BID 01/24/21 [K-Dur] Surgical History: Surgical History (Last Reviewed 01/24/21 @ 15:[address] Diogenes Jacome DO) Hx of knee surgery Z98.890 Surgical History: noncontributory, - - Right knee surgery. Psychiatric History: No pertinent psych hx Lives: With Family Smoking Status: Never smoker Alcohol: None Drugs: None - *Family History Maternal Family History: Family History (Last Reviewed 01/24/21 @ 15:[address] Diogenes Jacome DO) Other Asthma CVA (cerebral vascular accident) Diabetes Hypertension Thyroid disorder History Items: - - Patient with no market maternal or paternal family history including heart disease, diabetes, cancer. Paternal Family History: Family History (Last Reviewed 01/24/21 @ 15:[address] Diogenes Jacome DO) Other Asthma CVA (cerebral vascular accident) Diabetes Hypertension Thyroid disorder History Items: - - Patient with no market maternal or paternal family history including heart disease, diabetes, cancer. Review of Systems Constitutional: Reports: Anorexia, Chills, Malaise. Denies: Fever Eyes: Denies: Blurred vision, Double vision HEENT: Denies: Head Aches, Sinus Congestion, Sinus Drainage Cardiovascular: Denies: Chest Pain, Palpitations Respiratory: Reports: Cough. Denies: Shortness of Breath Gastrointestinal: Reports: Abdominal Pain, Nausea, Vomiting Genitourinary: Denies: Dysuria Musculoskeletal: Denies: Joint Pain, Joint Tenderness Hematologic/ Lymphatic: Denies: Easy Bruising, Easy Bleeding, Hx of blood clot Comment: All review of systems were negative except as mentioned above in the history of present illness and the other review of systems. VTE Information - Inpt Only VTE Present on Admission: No VTE Mechan Device Prophylaxis: None VTE Pharm Prophylaxis ordered?: Yes Patient Problems: Active and Suspected Problems (Last Reviewed 10/27/20 @ 11:[address] Will Mason MD) Sinus tachycardia seen on school bus monitor (Acute) Nausea and vomiting (Acute) SIRS (systemic inflammatory response syndrome) (Acute) Lactic acidosis (Acute) Unspecified open wound, left thigh, subsequent encounter (Acute) Hyperkalemia (Acute) Diabetic ketoacidosis associated with type 1 diabetes mellitus (Acute) - Physical Exam Vitals/I&O's: Vital Signs Temp Pulse Resp BP Pulse Ox 36.0 C L 132 H 27 H 152/89 H 100 01/24/21 13:15 01/24/21 15:02 01/24/21 13:15 01/24/21 13:15 01/24/21 13:15 Oxygen Delivery Method Room Air Weight: 73.5 kg Body Mass Index (BMI) 21.4 Finger Stick Blood Glucose 346 Intake and Output for Last 24 Hours 01/22/21 01/23/21 01/24/21 22:59 23:59 23:59 Intake Total 7.37 / 2116.37 Balance 2116.37 / 7.37 General: Alert, No apparent distress, Well developed, Well nourished HEENT: Atraumatic, Normocephalic, - - No icterus Oral: Moist Mucosa, No Gingival or Mucosal Lesions/ Ulcerations Neck: No Nodes, Thyroid Normal Size and Texture Lungs: Clear to auscultation, Normal air movement, No rhonchi, No wheeze, No rales Cardiovascular: Regular rate, Regular Rhythm, Normal S1, Normal S2, No murmurs Abdomen: Bowel Sounds Present, Soft, Non Tender, Non-Distended, No Hepato- splenomegaly Extremities: No edema, No Calf Tenderness Skin: No rashes, No breakdown, - - Wound VAC on left lateral leg Musculoskeletal: No Tenderness to Palpation of Joints or Extremities, No Muscle Wasting Neurological: Muscle tone normal, - - Moves all extremities spontaneously. Psych/Mental Status: Normal Affect, Appropriate Microbiology Past 72 Hours 01/24/21 13:20 Mucosa - Nose SARS-CoV-2 Antigen (Rapid) - Final Laboratory Results 01/24/21 09:39: POC Glucose 426 H 01/24/21 10:00: WBC 36.8 H*, RBC 6.68 H, Hgb 19.2 H*, Hct 57.5 H, MCV 86.1, MCH 28.7, MCHC 33.4, RDW Std Deviation 39.9, RDW Coeff of Rabia 13.2, Plt Count 787 H* , MPV 10.2, Neut % (Auto) Not Reportable, Absolute Neuts (auto) 26.5 H, Absolute Lymphs (auto) 5.52 H, Total Counted 100, Neutrophils % (Manual) 68, Band Neutrophils % 4, Lymphocytes % (Manual) 15 L, Monocytes % (Manual) 11 H, Metamyelocytes % 1, Myelocytes % 1 H, Diff Path Review Carissa turner Platelet Estimate [employer] 01/24/21 10:00: Sodium Cancelled, Potassium Cancelled, Chloride Cancelled, Carbon Dioxide Cancelled, Anion Gap Cancelled, BUN Cancelled, Creatinine Cancelled, Estim Creat Clear Calc Cancelled, Est GFR (MDRD) Af Amer Cancelled, Est GFR (MDRD) Non-Af Cancelled, BUN/Creatinine Ratio Cancelled, Glucose Cancelled, Calcium Cancelled, Magnesium Cancelled, Total Bilirubin Cancelled, AST Cancelled, ALT Cancelled, Alkaline Phosphatase Cancelled, Total Protein Cancelled, Albumin Cancelled, Globulin Cancelled, Albumin/Globulin Ratio Cancelled 01/24/21 10:00: Acetone Level SMALL H 01/24/21 10:00: Sodium Pending, Potassium Pending, Chloride Pending, Carbon Dioxide Pending, Anion Gap Pending, BUN Pending, Creatinine Pending, Est GFR (MDRD) Af Amer Pending, Est GFR (MDRD) Non-Af Pending, BUN/Creatinine Ratio Pending, Glucose Pending, Calcium Pending 01/24/21 10:07: Specimen Type MARILYNN, VBG pH 6.75 L*, VBG pO2 50 H, VBG HCO3 5 L, VBG Total CO2 6 L, VBG O2 Sat (Calc) 48 L, VBG Base Excess < -30 L, POC Mix VBG pCO2 Pt Tmp 34.5 L, Crit Call To/Read Back Yes 01/24/21 10:21: Urine Color Yellow, Urine Clarity Clear, Urine pH 5.0, Ur Specific [place] 1.025, Urine Protein 100 H, Urine Glucose (UA) 1000 H, Urine Ketones 150 H, Urine Occult Blood 50 H, Urine Nitrite Negative, Urine Bilirubin Negative, Urine Urobilinogen Normal, Ur Leukocyte Esterase Negative, Urine RBC 0-5 SEEN, Urine WBC 0 SEEN, Ur Squamous Epith Cells 0 SEEN, Urine Bacteria 0 SEEN, Urine Mucus 0 SEEN 01/24/21 11:20: Sodium 129 L, Potassium 4.9, Chloride 100, Carbon Dioxide 6.0 L* , Anion Gap 23 H, BUN 25 H, Creatinine 1.58 H, Estim Creat Clear Calc 84.28, Est GFR (MDRD) Af Amer 72, Est GFR (MDRD) Non-Af 60, BUN/Creatinine Ratio 15.8, Glucose 492 H*, Calcium 9.3, Magnesium 2.6, Total Bilirubin 1.00, AST 20, ALT 19, Alkaline Phosphatase 147 H, Total Protein 8.7 H, Albumin 4.6, Globulin 4.1, Albumin/Globulin Ratio 1.1 01/24/21 11:53: PT 17.5 H, INR 1.5, APTT 28.5 01/24/21 11:53: Lactic Acid 4.8 H* 01/24/21 12:05: POC Glucose > 500 H* 01/24/21 13:07: POC Glucose 469 H* 01/24/21 14:30: POC Glucose 346 H Current Medications Insulin Human Lispro 100 unit/ (Sodium Chloride) 100 mls @ 8.21 mls/hr CONT INF .[id number] [facility]; Protocol Last Titration: 01/24/21 14:30 Dose: 3.1 units/hr, 3.1 mls/hr Documented by: Sodium Chloride () 250 mls @ 15 mls/hr IV .[id number] PRN PRN Reason: Saline Flush Sodium Chloride () 250 mls @ 15 mls/hr IV .[id number] PRN PRN Reason: Additional IVPB Infusion Lactated Ringer's () 1,000 mls @ 999 mls/hr IV .[id number] LILLY Stop: 01/24/21 15:30 Last Admin: 01/24/21 14:34 Dose: 999 mls/hr Documented by: Sodium Chloride (0.9% Saline Lock 10 Ml Syringe) 10 - 40 ml IV UD PRN PRN Reason: Multilumen/Benitez Flush Last Admin: 01/24/21 14:34 Dose: 20 ml Documented by: Sodium Chloride (0.9 % Nacl (Sterile) Posiflush 10 Ml) 10 - 40 ml IV UD PRN PRN Reason: Port access or dressing change Assessment/Plan All Active Problems (Last Reviewed 10/27/20 @ 11:[address] Will Mason MD) Sinus tachycardia seen on school bus monitor (Acute) Nausea and vomiting (Acute) SIRS (systemic inflammatory response syndrome) (Acute) Lactic acidosis (Acute) Unspecified open wound, left thigh, subsequent encounter (Acute) Hyperkalemia (Acute) Diabetic ketoacidosis associated with type 1 diabetes mellitus (Acute) Abscess of left thigh (Acute) Nonhealing surgical wound (Acute) Severe sepsis (Acute) 1. Diabetic ketoacidosis Suspect due to noncompliance or poor compliance with insulin and glucose checks. However could be exacerbated by an underlying infection. Plan * on insulin drip. * Continue with IV fluids * Continue serial BMPs until anion gap is normalized x2. * Follow-up cultures * Check an A1c 2. Systemic inflammatory response syndrome Patient with profound leukocytosis which could be reactive given his DKA COVID-19 as well as urinalysis negative Plan * Follow-up cultures * Continue with Pipracil and/tazobactam and vancomycin for now 3. VTE prophylaxis: High risk. Enoxaparin. Inpatient E&M: 51677 Init Hosp L3
--- NOTE | 2021-01-24 15:28 | PCM.RX.CS ---
Consult Pharmacy has been consulted to manage selected antiobiotic: Vancomycin Type of Consult: New start Labs: Sodium Cancelled 01/24/21 11:30 Potassium Cancelled 01/24/21 11:30 Chloride Cancelled 01/24/21 11:30 Carbon Dioxide Cancelled 01/24/21 11:30 Anion Gap Cancelled 01/24/21 11:30 BUN Cancelled 01/24/21 11:30 Creatinine Cancelled 01/24/21 11:30 Est GFR (MDRD) Af Amer Cancelled 01/24/21 11:30 Est GFR (MDRD) Non-Af Cancelled 01/24/21 11:30 BUN/Creatinine Ratio Cancelled 01/24/21 11:30 Glucose Cancelled 01/24/21 11:30 Microbiology: Microbiology 01/24/21 13:20 Mucosa - Nose SARS-CoV-2 Antigen (Rapid) - Final Goal Trough: 15-20 mcg/mL Pharmacy Plan for Drug Dosing: NEW START IV VANCOMYCIN Consulting Physician: Dr. Jacome Indication: SIRS Criteria Goal Trough: 15-20 SrCr: 1.58 CrCl: 84 mL/min Comments: Pt had initial dose of 2000mg IV x1 in ED 01/24/21 @1302 Vancomcyin Dose: 1250mg IV Q12hr to start 01/25/21 @0100 Pending Level: 01/26/21 @0030, prior to 4th total dose per protocol Pharmacy Service will continue to monitor and adjust dosing as required.
--- NOTE | 2021-01-24 15:36 | NURSING ---
wound photo: left posterior thigh
[2021-01-24] MEDS: 0.9% Normal Saline 1,000 ML 325 ML IV ×2 (15:37→18:32)
[2021-01-24 15:45] LABS: Bedside Glucose 332 mg/dL (70-110)
[2021-01-24 15:59] LABS: Reflex Lactate? Y
[2021-01-24 16:17] LABS: Hematocrit 44.4 % (40-54); Hemoglobin 15.4 g/dL (13.0-16.5); Mean Corp Hgb Conc 34.7 g/dL (32-36); Mean Corpuscular Hgb 28.6 pg (27.0-32.0); Mean Corpuscular Volume 82.4 fL (80-94); Mean Platelet Vol. 9.3 fl (6.2-12.0); POSITIVE COUNT YES; POSITIVE DIFFERENTIAL YES; POSITIVE MORPHOLOGY YES; Platelet Count 444 K/mm3 (150-450); RBC Distribution Width CV 12.9 % (11.6-14.6); RBC Distribution Width SD 38.2 fl (35.1-43.9); Red Blood Count 5.39 M/mm3 (4.6-6.2)
[2021-01-24 16:20] LABS: Scan Indicated on CBC? Y/N NO
[2021-01-24 16:40] LABS: Bedside Glucose 282 mg/dL (70-110)
[2021-01-24 16:46] LABS: Anion Gap 19 (5-15); BUN 26 mg/dL (7-18); BUN/Creat Ratio 21.3 RATIO (10-20); Calcium,Total 8.4 mg/dL (8.5-10.1); Chloride 110 mmol/L (98-107); Creatinine, Serum 1.22 mg/dL (0.70-1.30); EST Glomerular Filtration Rate 80 mL/min (>60); Est Glom Filt Rate - Afr Amer 97 mL/min (>60); Estimated Creatinine Clearance 100.41 ml/min; Glucose 263 mg/dL (74-106); Potassium 4.2 mmol/L (3.5-5.1); Sodium Level 137 mmol/L (136-145)
[2021-01-24 17:01] LABS: Hemoglobin A1c 8.9 % (3.8-5.6)
[2021-01-24 17:05] LABS: Lactic Acid 1.8 mmol/L (0.4-1.9)
[2021-01-24 17:35] LABS: Bedside Glucose 256 mg/dL (70-110)
[2021-01-24 18:36] LABS: Bedside Glucose 298 mg/dL (70-110)
[2021-01-24] MEDS: Budesonide Respules 0.5 MG/2 ML AMPUL.NEB. INHALATION (19:15)
[2021-01-24 19:41] LABS: Bedside Glucose 282 mg/dL (70-110)
[2021-01-24 20:35] LABS: Anion Gap 14 (5-15); BUN 23 mg/dL (7-18); BUN/Creat Ratio 20.9 RATIO (10-20); Calcium,Total 8.7 mg/dL (8.5-10.1); Chloride 110 mmol/L (98-107); EST Glomerular Filtration Rate 91 mL/min (>60); Est Glom Filt Rate - Afr Amer 110 mL/min (>60); Estimated Creatinine Clearance 111.36 ml/min; Glucose 264 mg/dL (74-106); Potassium 4.3 mmol/L (3.5-5.1); Sodium Level 135 mmol/L (136-145)
[2021-01-24 20:41] LABS: Bedside Glucose 250 mg/dL (70-110)
[2021-01-24 21:55] LABS: Bedside Glucose 289 mg/dL (70-110)
[2021-01-24] MEDS: Dext 5%-0.45% NS 1,000 ML 150 ML IV (22:50)
[2021-01-24 22:51] LABS: Bedside Glucose 226 mg/dL (70-110)
[2021-01-24] MEDS: Ondansetron 4 MG/2 ML Vial IV (23:10)
[2021-01-24 23:36] LABS: Bedside Glucose 222 mg/dL (70-110)
[2021-01-25] VITALS (17 sets, daily range): BP systolic 105–154; BP diastolic 52–75; PULSE 77–138; RESP 16–38; TEMP 36.3–37; O2SAT 95–100
[2021-01-25 00:31] LABS: Bedside Glucose 234 mg/dL (70-110)
[2021-01-25 00:46] LABS: Anion Gap 10 (5-15); BUN 22 mg/dL (7-18); BUN/Creat Ratio 22.2 RATIO (10-20); Chloride 110 mmol/L (98-107); Creatinine, Serum 0.99 mg/dL (0.70-1.30); EST Glomerular Filtration Rate 102 mL/min (>60); Est Glom Filt Rate - Afr Amer 124 mL/min (>60); Estimated Creatinine Clearance 123.74 ml/min; Glucose 246 mg/dL (74-106); Potassium 3.8 mmol/L (3.5-5.1); Sodium Level 135 mmol/L (136-145)
[2021-01-25 01:51] LABS: Bedside Glucose 242 mg/dL (70-110)
[2021-01-25 02:36] LABS: Bedside Glucose 243 mg/dL (70-110)
[2021-01-25 03:26] LABS: Bedside Glucose 212 mg/dL (70-110)
[2021-01-25 04:41] LABS: Absolute Neutrophil Count 11.2 X10^3/uL (2.0-7.7); Basophil# 0.03 X10^3/uL; Basophil% 0.2 % (0-1); Eosinophil# 0.04 X10^3/uL; Eosinophils% 0.3 % (0-5); Hematocrit 36.1 % (40-54); Hemoglobin 12.8 g/dL (13.0-16.5); Lymphocyte % 6.6 % (19-41); Mean Corp Hgb Conc 35.5 g/dL (32-36); Mean Corpuscular Volume 81.7 fL (80-94); Mean Platelet Vol. 8.8 fl (6.2-12.0); Monocyte# 1.27 X10^3/uL; Monocyte% 9.3 % (0-10); NRBC Flagged by Analyzer 0 % (0-5); Neutrophil # 11.23 X10^3/uL (2.7-7.7); Neutrophil % 82.4 % (47-70); Platelet Count 305 K/mm3 (150-450); RBC Distribution Width CV 12.7 % (11.6-14.6); RBC Distribution Width SD 37.9 fl (35.1-43.9); Red Blood Count 4.42 M/mm3 (4.6-6.2); White Blood Count 13.6 K/mm3 (4.4-11.0)
[2021-01-25 04:53] LABS: Anion Gap 11 (5-15); BUN 19 mg/dL (7-18); BUN/Creat Ratio 20.6 RATIO (10-20); Calcium,Total 8.7 mg/dL (8.5-10.1); Chloride 108 mmol/L (98-107); Creatinine, Serum 0.92 mg/dL (0.70-1.30); EST Glomerular Filtration Rate 111 mL/min (>60); Est Glom Filt Rate - Afr Amer 134 mL/min (>60); Estimated Creatinine Clearance 133.15 ml/min; Glucose 251 mg/dL (74-106); Potassium 3.4 mmol/L (3.5-5.1); Sodium Level 134 mmol/L (136-145)
--- NOTE | 2021-01-25 06:51 | PN_ITS ---
Subjective: Patient did okay overnight. Patient was able to be transition to subcutaneous insulin. Patient is not reporting any increased pain in his thigh. No fever has been noted overnight. Patient has been variable with p.o. intake. General: Alert, Oriented x3, Cooperative, No apparent distress, - - Appears unkept HEENT: Atraumatic, PERRLA, EOMI, Normocephalic, - - Slight scleral injection Oral: No Gingival or Mucosal Lesions/ Ulcerations, Dry Mucosa Neck: Supple, No JVD, No Nodes, Trachea Midline Lungs: Clear to auscultation, Normal air movement, No rhonchi, No wheeze, No rales Cardiovascular: Normal S1, Normal S2, No murmurs, No rub noted, No Gallop, Tachycardic Abdomen: Bowel Sounds Present, Soft, Non Tender, Non-Distended Extremities: No clubbing, No cyanosis, No edema Skin: - - No change from previous Musculoskeletal: No Tenderness to Palpation of Joints or Extremities Lymphatic: No Cervical, Supraclavicular, or Inguinal Adenopathy Neurological: Cranial nerves II-XII grossly intact, Neuro grossly intact, Motor Exam 5/5 strength throughout Psych/Mental Status: Alert and oriented to time, place, person, mood and affect Vital Signs Temp Pulse Resp BP Pulse Ox 36.8 C 113 H 20 H 123/65 H 100 01/25/21 04:00 01/25/21 06:00 01/25/21 06:00 01/25/21 06:00 01/25/21 06:00 Oxygen Delivery Method Room Air Weight: 75.5 kg Body Mass Index (BMI) 21.4 Finger Stick Blood Glucose 212 Intake and Output for Last 24 Hours 01/23/21 01/24/21 01/25/21 23:59 23:59 23:59 Intake Total 5823.69 / 5823.69 1274.06 / 1274.06 Output Total 1725 / 1950 650 / 650 Balance 4098.69 / 3873.69 624.06 / 624.06 Labs (Last 48 Hours) 01/24/21 01/24/21 01/24/21 09:39 10:00 10:00 WBC 36.8 H* RBC 6.68 H Hgb 19.2 H* Hct 57.5 H MCV 86.1 MCH 28.7 MCHC 33.4 RDW Std Deviation 39.9 RDW Coeff of Rabia 13.2 Plt Count 787 H* MPV 10.2 Immature Gran % (Auto) Neut % (Auto) Not Reportable Lymph % (Auto) [place] % (Auto) Eos % (Auto) Baso % (Auto) Absolute Neuts (auto) 26.5 H Absolute Lymphs (auto) 5.52 H Total Counted 100 Neutrophils % (Manual) 68 Band Neutrophils % 4 Lymphocytes % (Manual) 15 L Monocytes % (Manual) 11 H Metamyelocytes % 1 Myelocytes % 1 H Nucleated RBC % Diff Path Review May foll Platelet Estimate MKD INC PT INR APTT Specimen Type VBG pH VBG pO2 VBG HCO3 VBG Total CO2 VBG O2 Sat (Calc) VBG Base Excess POC Mix VBG pCO2 Pt Tmp Crit Call To/Read Back Sodium Cancelled Potassium Cancelled Chloride Cancelled Carbon Dioxide Cancelled Anion Gap Cancelled BUN Cancelled Creatinine Cancelled Estim Creat Clear Calc Cancelled Est GFR (MDRD) Af Amer Cancelled Est GFR (MDRD) Non-Af Cancelled BUN/Creatinine Ratio Cancelled Glucose Cancelled Hemoglobin A1c Lactic Acid Calcium Cancelled Magnesium Cancelled Total Bilirubin Cancelled AST Cancelled ALT Cancelled Alkaline Phosphatase Cancelled Total Protein Cancelled Albumin Cancelled Globulin Cancelled Albumin/Globulin Ratio Cancelled Urine Color Urine Clarity Urine pH Ur Specific [place] Urine Protein Urine Glucose (UA) Urine Ketones Urine Occult Blood Urine Nitrite Urine Bilirubin Urine Urobilinogen Ur Leukocyte Esterase Urine RBC Urine WBC Ur Squamous Epith Cells Urine Bacteria Urine Mucus Acetone Level POC Glucose 426 H 01/24/21 01/24/21 01/24/21 10:00 10:07 10:21 WBC RBC Hgb Hct MCV MCH MCHC RDW Std Deviation RDW Coeff of Rabia Plt Count MPV Immature Gran % (Auto) Neut % (Auto) Lymph % (Auto) [place] % (Auto) Eos % (Auto) Baso % (Auto) Absolute Neuts (auto) Absolute Lymphs (auto) Total Counted Neutrophils % (Manual) Band Neutrophils % Lymphocytes % (Manual) Monocytes % (Manual) Metamyelocytes % Myelocytes % Nucleated RBC % Diff Path Review Platelet Estimate PT INR APTT Specimen Type MARILYNN VBG pH 6.75 L* VBG pO2 50 H VBG HCO3 5 L VBG Total CO2 6 L VBG O2 Sat (Calc) 48 L VBG Base Excess < -30 L POC Mix VBG pCO2 Pt Tmp 34.5 L Crit Call To/Read Back Yes Sodium Potassium Chloride Carbon Dioxide Anion Gap BUN Creatinine Estim Creat Clear Calc Est GFR (MDRD) Af Amer Est GFR (MDRD) Non-Af BUN/Creatinine Ratio Glucose Hemoglobin A1c Lactic Acid Calcium Magnesium Total Bilirubin AST ALT Alkaline Phosphatase Total Protein Albumin Globulin Albumin/Globulin Ratio Urine Color Yellow Urine Clarity Clear Urine pH 5.0 Ur Specific [place] 1.025 Urine Protein 100 H Urine Glucose (UA) 1000 H Urine Ketones 150 H Urine Occult Blood 50 H Urine Nitrite Negative Urine Bilirubin Negative Urine Urobilinogen Normal Ur Leukocyte Esterase Negative Urine RBC 0-5 SEEN Urine WBC 0 SEEN Ur Squamous Epith Cells 0 SEEN Urine Bacteria 0 SEEN Urine Mucus 0 SEEN Acetone Level SMALL H POC Glucose 01/24/21 01/24/21 01/24/21 11:20 11:30 11:53 WBC RBC Hgb Hct MCV MCH MCHC RDW Std Deviation RDW Coeff of Rabia Plt Count MPV Immature Gran % (Auto) Neut % (Auto) Lymph % (Auto) [place] % (Auto) Eos % (Auto) Baso % (Auto) Absolute Neuts (auto) Absolute Lymphs (auto) Total Counted Neutrophils % (Manual) Band Neutrophils % Lymphocytes % (Manual) Monocytes % (Manual) Metamyelocytes % Myelocytes % Nucleated RBC % Diff Path Review Platelet Estimate PT 17.5 H INR 1.5 APTT 28.5 Specimen Type VBG pH VBG pO2 VBG HCO3 VBG Total CO2 VBG O2 Sat (Calc) VBG Base Excess POC Mix VBG pCO2 Pt Tmp Crit Call To/Read Back Sodium 129 L Cancelled Potassium 4.9 Cancelled Chloride 100 Cancelled Carbon Dioxide 6.0 L* Cancelled Anion Gap 23 H Cancelled BUN 25 H Cancelled Creatinine 1.58 H Cancelled Estim Creat Clear Calc 84.28 Cancelled Est GFR (MDRD) Af Amer 72 Cancelled Est GFR (MDRD) Non-Af 60 Cancelled BUN/Creatinine Ratio 15.8 Cancelled Glucose 492 H* Cancelled Hemoglobin A1c Lactic Acid Calcium 9.3 Cancelled Magnesium 2.6 Total Bilirubin 1.00 AST 20 ALT 19 Alkaline Phosphatase 147 H Total Protein 8.7 H Albumin 4.6 Globulin 4.1 Albumin/Globulin Ratio 1.1 Urine Color Urine Clarity Urine pH Ur Specific [place] Urine Protein Urine Glucose (UA) Urine Ketones Urine Occult Blood Urine Nitrite Urine Bilirubin Urine Urobilinogen Ur Leukocyte Esterase Urine RBC Urine WBC Ur Squamous Epith Cells Urine Bacteria Urine Mucus Acetone Level POC Glucose 01/24/21 01/24/21 01/24/21 11:53 12:05 13:07 WBC RBC Hgb Hct MCV MCH MCHC RDW Std Deviation RDW Coeff of Rabia Plt Count MPV Immature Gran % (Auto) Neut % (Auto) Lymph % (Auto) [place] % (Auto) Eos % (Auto) Baso % (Auto) Absolute Neuts (auto) Absolute Lymphs (auto) Total Counted Neutrophils % (Manual) Band Neutrophils % Lymphocytes % (Manual) Monocytes % (Manual) Metamyelocytes % Myelocytes % Nucleated RBC % Diff Path Review Platelet Estimate PT INR APTT Specimen Type VBG pH VBG pO2 VBG HCO3 VBG Total CO2 VBG O2 Sat (Calc) VBG Base Excess POC Mix VBG pCO2 Pt Tmp Crit Call To/Read Back Sodium Potassium Chloride Carbon Dioxide Anion Gap BUN Creatinine Estim Creat Clear Calc Est GFR (MDRD) Af Amer Est GFR (MDRD) Non-Af BUN/Creatinine Ratio Glucose Hemoglobin A1c Lactic Acid 4.8 H* Calcium Magnesium Total Bilirubin AST ALT Alkaline Phosphatase Total Protein Albumin Globulin Albumin/Globulin Ratio Urine Color Urine Clarity Urine pH Ur Specific [place] Urine Protein Urine Glucose (UA) Urine Ketones Urine Occult Blood Urine Nitrite Urine Bilirubin Urine Urobilinogen Ur Leukocyte Esterase Urine RBC Urine WBC Ur Squamous Epith Cells Urine Bacteria Urine Mucus Acetone Level POC Glucose > 500 H* 469 H* 01/24/21 01/24/21 01/24/21 14:30 15:30 16:00 WBC RBC Hgb Hct MCV MCH MCHC RDW Std Deviation RDW Coeff of Rabia Plt Count MPV Immature Gran % (Auto) Neut % (Auto) Lymph % (Auto) [place] % (Auto) Eos % (Auto) Baso % (Auto) Absolute Neuts (auto) Absolute Lymphs (auto) Total Counted Neutrophils % (Manual) Band Neutrophils % Lymphocytes % (Manual) Monocytes % (Manual) Metamyelocytes % Myelocytes % Nucleated RBC % Diff Path Review Platelet Estimate PT INR APTT Specimen Type VBG pH VBG pO2 VBG HCO3 VBG Total CO2 VBG O2 Sat (Calc) VBG Base Excess POC Mix VBG pCO2 Pt Tmp Crit Call To/Read Back Sodium Potassium Chloride Carbon Dioxide Anion Gap BUN Creatinine Estim Creat Clear Calc Est GFR (MDRD) Af Amer Est GFR (MDRD) Non-Af BUN/Creatinine Ratio Glucose Hemoglobin A1c 8.9 H Lactic Acid Calcium Magnesium Total Bilirubin AST ALT Alkaline Phosphatase Total Protein Albumin Globulin Albumin/Globulin Ratio Urine Color Urine Clarity Urine pH Ur Specific [place] Urine Protein Urine Glucose (UA) Urine Ketones Urine Occult Blood Urine Nitrite Urine Bilirubin Urine Urobilinogen Ur Leukocyte Esterase Urine RBC Urine WBC Ur Squamous Epith Cells Urine Bacteria Urine Mucus Acetone Level POC Glucose 346 H 332 H 01/24/21 01/24/21 01/24/21 16:00 16:00 16:32 WBC 32.0 H* RBC 5.39 Hgb 15.4 Hct 44.4 MCV 82.4 MCH 28.6 MCHC 34.7 RDW Std Deviation 38.2 RDW Coeff of Rabia 12.9 Plt Count 444 MPV 9.3 Immature Gran % (Auto) Neut % (Auto) Lymph % (Auto) [place] % (Auto) Eos % (Auto) Baso % (Auto) Absolute Neuts (auto) Absolute Lymphs (auto) Total Counted Neutrophils % (Manual) Band Neutrophils % Lymphocytes % (Manual) Monocytes % (Manual) Metamyelocytes % Myelocytes % Nucleated RBC % Diff Path Review May foll Platelet Estimate PT INR APTT Specimen Type VBG pH VBG pO2 VBG HCO3 VBG Total CO2 VBG O2 Sat (Calc) VBG Base Excess POC Mix VBG pCO2 Pt Tmp Crit Call To/Read Back Sodium 137 Potassium 4.2 Chloride 110 H Carbon Dioxide 8.0 L* Anion Gap 19 H BUN 26 H Creatinine 1.22 Estim Creat Clear Calc 100.41 Est GFR (MDRD) Af Amer 97 Est GFR (MDRD) Non-Af 80 BUN/Creatinine Ratio 21.3 H Glucose 263 H Hemoglobin A1c Lactic Acid Calcium 8.4 L Magnesium Total Bilirubin AST ALT Alkaline Phosphatase Total Protein Albumin Globulin Albumin/Globulin Ratio Urine Color Urine Clarity Urine pH Ur Specific [place] Urine Protein Urine Glucose (UA) Urine Ketones Urine Occult Blood Urine Nitrite Urine Bilirubin Urine Urobilinogen Ur Leukocyte Esterase Urine RBC Urine WBC Ur Squamous Epith Cells Urine Bacteria Urine Mucus Acetone Level POC Glucose 282 H 01/24/21 01/24/21 01/24/21 16:35 17:33 18:28 WBC RBC Hgb Hct MCV MCH MCHC RDW Std Deviation RDW Coeff of Rabia Plt Count MPV Immature Gran % (Auto) Neut % (Auto) Lymph % (Auto) [place] % (Auto) Eos % (Auto) Baso % (Auto) Absolute Neuts (auto) Absolute Lymphs (auto) Total Counted Neutrophils % (Manual) Band Neutrophils % Lymphocytes % (Manual) Monocytes % (Manual) Metamyelocytes % Myelocytes % Nucleated RBC % Diff Path Review Platelet Estimate PT INR APTT Specimen Type VBG pH VBG pO2 VBG HCO3 VBG Total CO2 VBG O2 Sat (Calc) VBG Base Excess POC Mix VBG pCO2 Pt Tmp Crit Call To/Read Back Sodium Potassium Chloride Carbon Dioxide Anion Gap BUN Creatinine Estim Creat Clear Calc Est GFR (MDRD) Af Amer Est GFR (MDRD) Non-Af BUN/Creatinine Ratio Glucose Hemoglobin A1c Lactic Acid 1.8 Calcium Magnesium Total Bilirubin AST ALT Alkaline Phosphatase Total Protein Albumin Globulin Albumin/Globulin Ratio Urine Color Urine Clarity Urine pH Ur Specific [place] Urine Protein Urine Glucose (UA) Urine Ketones Urine Occult Blood Urine Nitrite Urine Bilirubin Urine Urobilinogen Ur Leukocyte Esterase Urine RBC Urine WBC Ur Squamous Epith Cells Urine Bacteria Urine Mucus Acetone Level POC Glucose 256 H 298 H 01/24/21 01/24/21 01/24/21 19:30 20:06 20:33 WBC RBC Hgb Hct MCV MCH MCHC RDW Std Deviation RDW Coeff of Rabia Plt Count MPV Immature Gran % (Auto) Neut % (Auto) Lymph % (Auto) [place] % (Auto) Eos % (Auto) Baso % (Auto) Absolute Neuts (auto) Absolute Lymphs (auto) Total Counted Neutrophils % (Manual) Band Neutrophils % Lymphocytes % (Manual) Monocytes % (Manual) Metamyelocytes % Myelocytes % Nucleated RBC % Diff Path Review Platelet Estimate PT INR APTT Specimen Type VBG pH VBG pO2 VBG HCO3 VBG Total CO2 VBG O2 Sat (Calc) VBG Base Excess POC Mix VBG pCO2 Pt Tmp Crit Call To/Read Back Sodium 135 L Potassium 4.3 Chloride 110 H Carbon Dioxide 11.0 L Anion Gap 14 BUN 23 H Creatinine 1.10 Estim Creat Clear Calc 111.36 Est GFR (MDRD) Af Amer 110 Est GFR (MDRD) Non-Af 91 BUN/Creatinine Ratio 20.9 H Glucose 264 H Hemoglobin A1c Lactic Acid Calcium 8.7 Magnesium Total Bilirubin AST ALT Alkaline Phosphatase Total Protein Albumin Globulin Albumin/Globulin Ratio Urine Color Urine Clarity Urine pH Ur Specific [place] Urine Protein Urine Glucose (UA) Urine Ketones Urine Occult Blood Urine Nitrite Urine Bilirubin Urine Urobilinogen Ur Leukocyte Esterase Urine RBC Urine WBC Ur Squamous Epith Cells Urine Bacteria Urine Mucus Acetone Level POC Glucose 282 H 250 H 01/24/21 01/24/21 01/24/21 21:36 22:42 23:33 WBC RBC Hgb Hct MCV MCH MCHC RDW Std Deviation RDW Coeff of Rabia Plt Count MPV Immature Gran % (Auto) Neut % (Auto) Lymph % (Auto) [place] % (Auto) Eos % (Auto) Baso % (Auto) Absolute Neuts (auto) Absolute Lymphs (auto) Total Counted Neutrophils % (Manual) Band Neutrophils % Lymphocytes % (Manual) Monocytes % (Manual) Metamyelocytes % Myelocytes % Nucleated RBC % Diff Path Review Platelet Estimate PT INR APTT Specimen Type VBG pH VBG pO2 VBG HCO3 VBG Total CO2 VBG O2 Sat (Calc) VBG Base Excess POC Mix VBG pCO2 Pt Tmp Crit Call To/Read Back Sodium Potassium Chloride Carbon Dioxide Anion Gap BUN Creatinine Estim Creat Clear Calc Est GFR (MDRD) Af Amer Est GFR (MDRD) Non-Af BUN/Creatinine Ratio Glucose Hemoglobin A1c Lactic Acid Calcium Magnesium Total Bilirubin AST ALT Alkaline Phosphatase Total Protein Albumin Globulin Albumin/Globulin Ratio Urine Color Urine Clarity Urine pH Ur Specific [place] Urine Protein Urine Glucose (UA) Urine Ketones Urine Occult Blood Urine Nitrite Urine Bilirubin Urine Urobilinogen Ur Leukocyte Esterase Urine RBC Urine WBC Ur Squamous Epith Cells Urine Bacteria Urine Mucus Acetone Level POC Glucose 289 H 226 H 222 H 01/25/21 01/25/21 01/25/21 00:10 00:10 00:24 WBC RBC Hgb Hct MCV MCH MCHC RDW Std Deviation RDW Coeff of Rabia Plt Count MPV Immature Gran % (Auto) Neut % (Auto) Lymph % (Auto) [place] % (Auto) Eos % (Auto) Baso % (Auto) Absolute Neuts (auto) Absolute Lymphs (auto) Total Counted Neutrophils % (Manual) Band Neutrophils % Lymphocytes % (Manual) Monocytes % (Manual) Metamyelocytes % Myelocytes % Nucleated RBC % Diff Path Review Platelet Estimate PT INR APTT Specimen Type VBG pH VBG pO2 VBG HCO3 VBG Total CO2 VBG O2 Sat (Calc) VBG Base Excess POC Mix VBG pCO2 Pt Tmp Crit Call To/Read Back Sodium Cancelled 135 L Potassium Cancelled 3.8 Chloride Cancelled 110 H Carbon Dioxide Cancelled 15.0 L Anion Gap Cancelled 10 BUN Cancelled 22 H Creatinine Cancelled 0.99 Estim Creat Clear Calc Cancelled 123.74 Est GFR (MDRD) Af Amer Cancelled 124 Est GFR (MDRD) Non-Af Cancelled 102 BUN/Creatinine Ratio Cancelled 22.2 H Glucose Cancelled 246 H Hemoglobin A1c Lactic Acid Calcium Cancelled 9.0 Magnesium Total Bilirubin AST ALT Alkaline Phosphatase Total Protein Albumin Globulin Albumin/Globulin Ratio Urine Color Urine Clarity Urine pH Ur Specific [place] Urine Protein Urine Glucose (UA) Urine Ketones Urine Occult Blood Urine Nitrite Urine Bilirubin Urine Urobilinogen Ur Leukocyte Esterase Urine RBC Urine WBC Ur Squamous Epith Cells Urine Bacteria Urine Mucus Acetone Level POC Glucose 234 H 01/25/21 01/25/21 01/25/21 01:36 02:29 03:17 WBC RBC Hgb Hct MCV MCH MCHC RDW Std Deviation RDW Coeff of Rabia Plt Count MPV Immature Gran % (Auto) Neut % (Auto) Lymph % (Auto) [place] % (Auto) Eos % (Auto) Baso % (Auto) Absolute Neuts (auto) Absolute Lymphs (auto) Total Counted Neutrophils % (Manual) Band Neutrophils % Lymphocytes % (Manual) Monocytes % (Manual) Metamyelocytes % Myelocytes % Nucleated RBC % Diff Path Review Platelet Estimate PT INR APTT Specimen Type VBG pH VBG pO2 VBG HCO3 VBG Total CO2 VBG O2 Sat (Calc) VBG Base Excess POC Mix VBG pCO2 Pt Tmp Crit Call To/Read Back Sodium Potassium Chloride Carbon Dioxide Anion Gap BUN Creatinine Estim Creat Clear Calc Est GFR (MDRD) Af Amer Est GFR (MDRD) Non-Af BUN/Creatinine Ratio Glucose Hemoglobin A1c Lactic Acid Calcium Magnesium Total Bilirubin AST ALT Alkaline Phosphatase Total Protein Albumin Globulin Albumin/Globulin Ratio Urine Color Urine Clarity Urine pH Ur Specific [place] Urine Protein Urine Glucose (UA) Urine Ketones Urine Occult Blood Urine Nitrite Urine Bilirubin Urine Urobilinogen Ur Leukocyte Esterase Urine RBC Urine WBC Ur Squamous Epith Cells Urine Bacteria Urine Mucus Acetone Level POC Glucose 242 H 243 H 212 H 01/25/21 01/25/21 04:30 04:30 WBC 13.6 H RBC 4.42 L Hgb 12.8 L Hct 36.1 L MCV 81.7 MCH 29.0 MCHC 35.5 RDW Std Deviation 37.9 RDW Coeff of Rabia 12.7 Plt Count 305 MPV 8.8 Immature Gran % (Auto) 1.200 H Neut % (Auto) 82.4 H Lymph % (Auto) 6.6 L [place] % (Auto) 9.3 Eos % (Auto) 0.3 Baso % (Auto) 0.2 Absolute Neuts (auto) 11.2 H Absolute Lymphs (auto) 0.90 Total Counted Neutrophils % (Manual) Band Neutrophils % Lymphocytes % (Manual) Monocytes % (Manual) Metamyelocytes % Myelocytes % Nucleated RBC % 0 Diff Path Review Platelet Estimate PT INR APTT Specimen Type VBG pH VBG pO2 VBG HCO3 VBG Total CO2 VBG O2 Sat (Calc) VBG Base Excess POC Mix VBG pCO2 Pt Tmp Crit Call To/Read Back Sodium 134 L Potassium 3.4 L Chloride 108 H Carbon Dioxide 15.0 L Anion Gap 11 BUN 19 H Creatinine 0.92 Estim Creat Clear Calc 133.15 Est GFR (MDRD) Af Amer 134 Est GFR (MDRD) Non-Af 111 BUN/Creatinine Ratio 20.6 H Glucose 251 H Hemoglobin A1c Lactic Acid Calcium 8.7 Magnesium Total Bilirubin AST ALT Alkaline Phosphatase Total Protein Albumin Globulin Albumin/Globulin Ratio Urine Color Urine Clarity Urine pH Ur Specific [place] Urine Protein Urine Glucose (UA) Urine Ketones Urine Occult Blood Urine Nitrite Urine Bilirubin Urine Urobilinogen Ur Leukocyte Esterase Urine RBC Urine WBC Ur Squamous Epith Cells Urine Bacteria Urine Mucus Acetone Level POC Glucose Microbiology 01/24/21 13:20 Mucosa - Nose SARS-CoV-2 Antigen (Rapid) - Final Clinical Impression(s) from Imaging Studies Chest X-Ray 01/24/21 11:40 IMPRESSION: No acute cardiopulmonary findings Electronically Signed: Diogenes Terry DO at 12:03 EDT Tel , Service support , Chest X-Ray 01/24/21 14:05 IMPRESSION: Right subclavian central venous catheter with tip terminating in the lower SVC. No pneumothorax. Electronically Signed: Dmitry Dave MD ([place]) at 14:46 EDT , Service support , Medical Necessity - Tobacco Use Smoking Status: Never smoker Assessment/Plan All Active Problems (Last Updated 01/24/21 @ 15:[address] Diogenes Jacome, DO) Diabetic ketoacidosis associated with type 1 diabetes mellitus (Acute) Abscess of left thigh (Acute) Nonhealing surgical wound (Acute) Severe sepsis (Acute) Sinus tachycardia seen on ingot stripper (Acute) Nausea and vomiting (Acute) SIRS (systemic inflammatory response syndrome) (Acute) Lactic acidosis (Acute) Unspecified open wound, left thigh, subsequent encounter (Acute) Hyperkalemia (Acute) RECOMMENDATIONS: 1. Discontinue antibiotics 2. Potassium supplementation 3. Encourage p.o. intake 4. Okay to leave the intensive care unit 5. Wound nurse to evaluate and change wound VAC IMPRESSIONS: 1. Acute DKA from probable noncompliance Patient does have a known wound in the left thigh. This appears to be uninfected at this time. Low clinical suspicion for infectious etiology as an explanation of DKA. Clinical suspicion for significant hemoconcentration leading to leukocytosis, thrombocytosis and elevated H&H. Aggressive volume resuscitation completed, but patient still appears to be volume depleted. Will replace potassium. Patient does admit to failure to check blood sugars and adjust sliding scale. Okay to leave the intensive care unit from my perspective 2. Open thigh wound/history of noncompliance/moderate persistent asthma Complicates care, management, recovery and prognosis. Wound nurse to evaluate thigh wound. Patient does not appear to be in acute exacerbation of asthma at this time. Likely not necessary to use systemic steroids. As needed albuterol is likely sufficient for now. Inpatient E&M: [id number] Subs Hosp L2
[2021-01-25] MEDS: Insulin Lispro 100 UNIT/ML INSULN.PEN SC ×4 (07:01→21:25)
[2021-01-25 07:06] LABS: Bedside Glucose 283 mg/dL (70-110)
[2021-01-25] MEDS: Budesonide Respules 0.5 MG/2 ML AMPUL.NEB. INHALATION ×2 (07:59→19:25)
--- NOTE | 2021-01-25 10:05 | CASEMGMT ---
VERONA FONTANEZ Assessment: Face to Face with pt for initial transition planning/care coordination assessment. VERONA FONTANEZ introduced self and rol at [facility], pt voices understanding and consents to assessment. Pt is lying in bed on RA. Pt is A/O x4 and answers all questions appropriately at this time. Care providers, pharmacy, and demographics verified/updated. Presentation:vomiting since night before Admitting dx: DKA PCP: Tori Butler, [employer] professor. Pt states he is to find another PCP but has not done so. List of in network, local providers given to pt. Specialists: MD at wound center, pt unsure of who this is, , endocrinology Preferred Pharmacy: [facility] Prescription Benefit: yes LNOK: Grandmother Ines Carlton Living Arrangements: Pt states he lives with his grandmother, grandfather, mother and brother in a mobile home and no concerns. Pt is I in ADL's. Transportation: Pt grandmother drives him to appts. No transporation concerns. DME/HHC: Pt has a cane he uses with the wound vac, wound vac and denies need for further DME. Pt has previously had [facility] for wound vac changes. They are not coming out any longer. He sees the wound center twice a week and his grandmother changes the wound vac one time a week. The wound center taught the grandmother. Pt previously was in [facility] as well. Pt states no concerns with going home at time of dc. Pt is unemployed. Pt states he has a glucometer at home and he checks his blood sugars 3x/day. States he is supposed to check 4x/day but he is not awake for the morning check. Pt is to call his monthly readings to Dr. Galindo. Pt states he has not done this yet. Pt states he has supplies- lancets, test strips and an insulin pen. Pt denies issues with obtaining/cost of insulin/supplies. He reports he is knowledgeable in what to do if blood sugars are too high or low. Pt states no further concersns/needs. CM to follow for any further dc planning/needs. Advised pt to ask for CM if any further questions/concerns/needs arise, voices understanding. Pt goal: Home Plan: Home with family support.
[2021-01-25] MEDS: Enoxaparin 40 MG/0.4 ML Syringe SC (10:24)
[2021-01-25] MEDS: Insulin Lispro 100 UNIT/ML INSULN.PEN 10 UNIT SC ×2 (11:20→16:58)
[2021-01-25 11:25] LABS: Bedside Glucose 356 mg/dL (70-110)
[2021-01-25 12:10] LABS: Pathologist Review Reviewed
[2021-01-25 12:13] LABS: Pathologist Review Reviewed
[2021-01-25] MEDS: 0.9% Saline Lock 10 ML Syringe IV (13:51)
[2021-01-25] MEDS: Lactated Ringers 1,000 ML 999 ML IV (13:51)
[2021-01-25] MEDS: Ibuprofen 600 MG Tablet PO (14:12)
--- NOTE | 2021-01-25 14:32 | PCM.PN.SRG ---
Patient Problems: Active and Suspected Problems (Last Updated 01/24/21 @ 15:[address] Diogenes Jacome, DO) Diabetic ketoacidosis associated with type 1 diabetes mellitus (Acute) Abscess of left thigh (Acute) Nonhealing surgical wound (Acute) Left thigh Severe sepsis (Acute) Sinus tachycardia seen on library monitor (Acute) Nausea and vomiting (Acute) SIRS (systemic inflammatory response syndrome) (Acute) Lactic acidosis (Acute) Unspecified open wound, left thigh, subsequent encounter (Acute) Hyperkalemia (Acute) Objective: Patient sitting up in bed, playing on phone. Does not make eye contact. He states he has stomach pain, so he doesn't want to eat. States pain is worse after eating. - Physical Exam Vitals/I&O's: Vital Signs Temp Pulse Resp BP Pulse Ox 98.0 F 115 H 18 124/75 H 100 01/25/21 14:30 01/25/21 14:30 01/25/21 14:30 01/25/21 14:30 01/25/21 14:30 Oxygen Delivery Method Room Air Weight: 166 lb 7.184 oz Body Mass Index (BMI) 21.4 Finger Stick Blood Glucose 212 Intake and Output for Last 24 Hours 01/23/21 01/24/21 01/25/21 23:59 23:59 23:59 Intake Total 5823.69 / 5823.69 1445.56 / 1445.56 Output Total 1725 / 1950 1225 / 1225 Balance 4098.69 / 3873.69 220.56 / 220.56 General: Alert, Cooperative, No apparent distress HEENT: Atraumatic Oral: Moist Mucosa Lungs: Normal air movement Cardiovascular: Regular rate Extremities: No edema Skin: Ulcer/ Wound - Left posterior leg ulcer with wound VAC in place and to 150 mmHg suction. Periwound is clear. Picture of ulcer reviewed. Wound looks stable. Beefy pink in color. Musculoskeletal: No Tenderness to Palpation of Joints or Extremities Neurological: Cranial nerves II-XII grossly intact Psych/Mental Status: Normal Affect Microbiology Past 72 Hours 01/24/21 13:20 Mucosa - Nose SARS-CoV-2 Antigen (Rapid) - Final Laboratory Results 01/24/21 10:00: Diff Path Review Reviewed 01/24/21 11:30: Sodium Cancelled, Potassium Cancelled, Chloride Cancelled, Carbon Dioxide Cancelled, Anion Gap Cancelled, BUN Cancelled, Creatinine Cancelled, Estim Creat Clear Calc Cancelled, Est GFR (MDRD) Af Amer Cancelled, Est GFR (MDRD) Non-Af Cancelled, BUN/Creatinine Ratio Cancelled, Glucose Cancelled, Calcium Cancelled 01/24/21 14:30: POC Glucose 346 H 01/24/21 15:30: POC Glucose 332 H 01/24/21 16:00: Hemoglobin A1c 8.9 H 01/24/21 16:00: Sodium 137, Potassium 4.2, Chloride 110 H, Carbon Dioxide 8.0 L*, Anion Gap 19 H, BUN 26 H, Creatinine 1.22, Estim Creat Clear Calc 100.41, Est GFR (MDRD) Af Amer 97, Est GFR (MDRD) Non-Af 80, BUN/Creatinine Ratio 21.3 H, Glucose 263 H, Calcium 8.4 L 01/24/21 16:00: WBC 32.0 H*, RBC 5.39, Hgb 15.4, Hct 44.4, MCV 82.4, MCH 28.6, MCHC 34.7, RDW Std Deviation 38.2, RDW Coeff of Rabia 12.9, Plt Count 444, MPV 9.3, Diff Path Review Reviewed 01/24/21 16:32: POC Glucose 282 H 01/24/21 16:35: Lactic Acid 1.8 01/24/21 17:33: POC Glucose 256 H 01/24/21 18:28: POC Glucose 298 H 01/24/21 19:30: POC Glucose 282 H 01/24/21 20:06: Sodium 135 L, Potassium 4.3, Chloride 110 H, Carbon Dioxide 11.0 L, Anion Gap 14, BUN 23 H, Creatinine 1.10, Estim Creat Clear Calc 111.36, Est GFR (MDRD) Af Amer 110, Est GFR (MDRD) Non-Af 91, BUN/Creatinine Ratio 20.9 H, Glucose 264 H, Calcium 8.7 01/24/21 20:33: POC Glucose 250 H 01/24/21 21:36: POC Glucose 289 H 01/24/21 22:42: POC Glucose 226 H 01/24/21 23:33: POC Glucose 222 H 01/25/21 00:10: Sodium Cancelled, Potassium Cancelled, Chloride Cancelled, Carbon Dioxide Cancelled, Anion Gap Cancelled, BUN Cancelled, Creatinine Cancelled, Estim Creat Clear Calc Cancelled, Est GFR (MDRD) Af Amer Cancelled, Est GFR (MDRD) Non-Af Cancelled, BUN/Creatinine Ratio Cancelled, Glucose Cancelled, Calcium Cancelled 01/25/21 00:10: Sodium 135 L, Potassium 3.8, Chloride 110 H, Carbon Dioxide 15.0 L, Anion Gap 10, BUN 22 H, Creatinine 0.99, Estim Creat Clear Calc 123.74, Est GFR (MDRD) Af Amer 124, Est GFR (MDRD) Non-Af 102, BUN/Creatinine Ratio 22.2 H, Glucose 246 H, Calcium 9.0 01/25/21 00:24: POC Glucose 234 H 01/25/21 01:36: POC Glucose 242 H 01/25/21 02:29: POC Glucose 243 H 01/25/21 03:17: POC Glucose 212 H 01/25/21 04:30: WBC 13.6 H, RBC 4.42 L, Hgb 12.8 L, Hct 36.1 L, MCV 81.7, MCH 29.0, MCHC 35.5, RDW Std Deviation 37.9, RDW Coeff of Rabia 12.7, Plt Count 305, MPV 8.8, Immature Gran % (Auto) 1.200 H, Neut % (Auto) 82.4 H, Lymph % (Auto) 6.6 L, [place] % (Auto) 9.3, Eos % (Auto) 0.3, Baso % (Auto) 0.2, Absolute Neuts (auto) 11.2 H, Absolute Lymphs (auto) 0.90, Nucleated RBC % 0 01/25/21 04:30: Sodium 134 L, Potassium 3.4 L, Chloride 108 H, Carbon Dioxide 15.0 L, Anion Gap 11, BUN 19 H, Creatinine 0.92, Estim Creat Clear Calc 133.15, Est GFR (MDRD) Af Amer 134, Est GFR (MDRD) Non-Af 111, BUN/Creatinine Ratio 20.6 H, Glucose 251 H, Calcium 8.7 01/25/21 06:51: POC Glucose 283 H 01/25/21 11:19: POC Glucose 356 H Current Medications Acetaminophen (Acetaminophen 500 Mg Tablet) 500 mg PO Q4H PRN PRN PRN Reason: Pain 1-10 or Fever Albuterol Sulfate (Albuterol 2.5 Mg/3 Ml Vial.Neb.) 2.5 mg INHALATION Q4H PRN PRN Reason: WHEEZING Budesonide (Budesonide Respules 0.5 Mg/2 Ml Ampul.Neb.) 0.5 mg INHALATION Q12H.RT [facility] Last Admin: 01/25/21 07:59 Dose: 0.5 mg Documented by: Dextrose (Dextrose 50%-Water 25 Gm/50 Ml Disp.Syrin) 0 gm IV X1 PRN; Protocol PRN Reason: Hypoglycemia Protocol Enoxaparin Sodium (Enoxaparin 40 Mg/0.4 Ml Syringe) 40 mg SC DAILY [facility] Last Admin: 01/25/21 10:24 Dose: 40 mg Documented by: Sodium Chloride () 250 mls @ 15 mls/hr IV .[id number] PRN PRN Reason: Saline Flush Last Infusion: 01/25/21 12:12 Dose: Infused Documented by: Sodium Chloride () 250 mls @ 15 mls/hr IV .[id number] PRN PRN Reason: Additional IVPB Infusion Ibuprofen (Ibuprofen 600 Mg Tablet) 600 mg PO Q6H PRN PRN PRN Reason: Pain 1-10 or Fever Last Admin: 01/25/21 14:12 Dose: 600 mg Documented by: Insulin Glargine (Insulin Glargine 100 Units/Ml Pen) 20 units SC QHS [facility] Last Admin: 01/25/21 01:18 Dose: 20 u Documented by: Insulin Human Lispro (Insulin Lispro 100 Unit/Ml Insuln.Pen) 0 unit SC ACHS [facility]; Protocol Last Admin: 01/25/21 11:20 Dose: 12 u Documented by: Insulin Human Lispro (Insulin Lispro 100 Unit/Ml Insuln.Pen) 10 unit SC TIDAC [facility] Last Admin: 01/25/21 11:20 Dose: 10 u Documented by: Ondansetron HCl (Ondansetron 4 Mg/2 Ml Vial) 4 mg IV Q8H PRN PRN PRN Reason: NAUSEA/VOMITING Last Admin: 01/24/21 23:10 Dose: 4 mg Documented by: Sodium Chloride (0.9% Saline Lock 10 Ml Syringe) 10 - 40 ml IV UD PRN PRN Reason: Multilumen/Benitez Flush Last Admin: 01/25/21 13:51 Dose: 10 ml Documented by: Sodium Chloride (0.9 % Nacl (Sterile) Posiflush 10 Ml) 10 - 40 ml IV UD PRN PRN Reason: Port access or dressing change Medical Necessity - Tobacco Use Smoking Status: Never smoker Assessment/Plan All Active Problems (Last Updated 01/24/21 @ 15:[address] Diogenes Jacome, DO) Diabetic ketoacidosis associated with type 1 diabetes mellitus (Acute) Abscess of left thigh (Acute) Nonhealing surgical wound (Acute) Severe sepsis (Acute) Sinus tachycardia seen on library monitor (Acute) Nausea and vomiting (Acute) SIRS (systemic inflammatory response syndrome) (Acute) Lactic acidosis (Acute) Unspecified open wound, left thigh, subsequent encounter (Acute) Hyperkalemia (Acute) 1. Nonhealing diabetic ulcer left posterior thigh 2. s/p surgical preparation left posterior thigh with incision and drainage and excisional debridement nonhealing infected necrotic diabetic ulcer with abscess including necrotic muscle (276 cm2) on 12/24/20. 3. Diabetic ketoacidosis associated with Type I Diabetes mellitus. 4. Uncontrolled Type I Diabetes mellitus. Left posterior thigh ulcer is stable. Wound VAC in place to 150 mmHg suction. Ulcer does not look infected. Currently not on antibiotics. HgbA1c 8.9 yesterday. Encouraged increase in protein to help with wound healing. Patient states his stomach hurts when I eat. Prealbumin was 10.1 on 12/27/20. Upon discharge, patient will come to the wound center twice a week for wound VAC changes due to lack of proper clean running water at home. If his VAC is changed tomorrow, 01/26/21, and he is discharged tomorrow, he can return next Sunday01/31/21 to the wound center to be seen by Dr. Landin or myself and to have his wound VAC changed. [id number]: [id number] Global Visit
--- NOTE | 2021-01-25 15:15 | PN_ITS ---
Patient Problems: Active and Suspected Problems (Last Updated 01/24/21 @ 15:[address] Diogenes Jacome, DO) Diabetic ketoacidosis associated with type 1 diabetes mellitus (Acute) Abscess of left thigh (Acute) Nonhealing surgical wound (Acute) Left thigh Severe sepsis (Acute) Sinus tachycardia seen on court recording monitor (Acute) Nausea and vomiting (Acute) SIRS (systemic inflammatory response syndrome) (Acute) Lactic acidosis (Acute) Unspecified open wound, left thigh, subsequent encounter (Acute) Hyperkalemia (Acute) Subjective: Insulin drip turned off and has been put on insulin glargine. Patient states that not much of an appetite because his abdomen is hurting. Vitals/I&O's: Vital Signs Temp Pulse Resp BP Pulse Ox 36.7 C 115 H 18 124/75 H 100 01/25/21 14:30 01/25/21 14:30 01/25/21 14:30 01/25/21 14:30 01/25/21 14:30 Oxygen Delivery Method Room Air Weight: 75.5 kg Body Mass Index (BMI) 21.4 Finger Stick Blood Glucose 212 Intake and Output for Last 24 Hours 01/23/21 01/24/21 01/25/21 23:59 23:59 23:59 Intake Total 5823.69 / 5823.69 2445.56 / 2445.56 Output Total 1725 / 1950 1225 / 1225 Balance 4098.69 / 3873.69 1220.56 / 1220.56 General: Alert, No apparent distress HEENT: Atraumatic, Normocephalic Neck: No Nodes, Thyroid Normal Size and Texture Lungs: Clear to auscultation, Normal air movement, No rhonchi, No wheeze, No rales Cardiovascular: Regular rate, Regular Rhythm, Normal S1, Normal S2, No murmurs Abdomen: Bowel Sounds Present, Soft, Non-Distended, Tender - mild diffuse Psych/Mental Status: Normal Affect, Appropriate Microbiology Past 72 Hours 01/24/21 13:20 Mucosa - Nose SARS-CoV-2 Antigen (Rapid) - Final Laboratory Results 01/24/21 10:00: Diff Path Review Reviewed 01/24/21 15:30: POC Glucose 332 H 01/24/21 16:00: Hemoglobin A1c 8.9 H 01/24/21 16:00: Sodium 137, Potassium 4.2, Chloride 110 H, Carbon Dioxide 8.0 L* , Anion Gap 19 H, BUN 26 H, Creatinine 1.22, Estim Creat Clear Calc 100.41, Est GFR (MDRD) Af Amer 97, Est GFR (MDRD) Non-Af 80, BUN/Creatinine Ratio 21.3 H, Glucose 263 H, Calcium 8.4 L 01/24/21 16:00: WBC 32.0 H*, RBC 5.39, Hgb 15.4, Hct 44.4, MCV 82.4, MCH 28.6, MCHC 34.7, RDW Std Deviation 38.2, RDW Coeff of Rabia 12.9, Plt Count 444, MPV 9.3, Diff Path Review Reviewed 01/24/21 16:32: POC Glucose 282 H 01/24/21 16:35: Lactic Acid 1.8 01/24/21 17:33: POC Glucose 256 H 01/24/21 18:28: POC Glucose 298 H 01/24/21 19:30: POC Glucose 282 H 01/24/21 20:06: Sodium 135 L, Potassium 4.3, Chloride 110 H, Carbon Dioxide 11.0 L, Anion Gap 14, BUN 23 H, Creatinine 1.10, Estim Creat Clear Calc 111.36, Est GFR (MDRD) Af Amer 110, Est GFR (MDRD) Non-Af 91, BUN/Creatinine Ratio 20.9 H, Glucose 264 H, Calcium 8.7 01/24/21 20:33: POC Glucose 250 H 01/24/21 21:36: POC Glucose 289 H 01/24/21 22:42: POC Glucose 226 H 01/24/21 23:33: POC Glucose 222 H 01/25/21 00:10: Sodium Cancelled, Potassium Cancelled, Chloride Cancelled, Carbon Dioxide Cancelled, Anion Gap Cancelled, BUN Cancelled, Creatinine Cancelled, Estim Creat Clear Calc Cancelled, Est GFR (MDRD) Af Amer Cancelled, Est GFR (MDRD) Non-Af Cancelled, BUN/Creatinine Ratio Cancelled, Glucose Cancelled, Calcium Cancelled 01/25/21 00:10: Sodium 135 L, Potassium 3.8, Chloride 110 H, Carbon Dioxide 15.0 L, Anion Gap 10, BUN 22 H, Creatinine 0.99, Estim Creat Clear Calc 123.74, Est GFR (MDRD) Af Amer 124, Est GFR (MDRD) Non-Af 102, BUN/Creatinine Ratio 22.2 H, Glucose 246 H, Calcium 9.0 01/25/21 00:24: POC Glucose 234 H 01/25/21 01:36: POC Glucose 242 H 01/25/21 02:29: POC Glucose 243 H 01/25/21 03:17: POC Glucose 212 H 01/25/21 04:30: WBC 13.6 H, RBC 4.42 L, Hgb 12.8 L, Hct 36.1 L, MCV 81.7, MCH 29.0, MCHC 35.5, RDW Std Deviation 37.9, RDW Coeff of Rabia 12.7, Plt Count 305, MPV 8.8, Immature Gran % (Auto) 1.200 H, Neut % (Auto) 82.4 H, Lymph % (Auto) 6.6 L, [place] % (Auto) 9.3, Eos % (Auto) 0.3, Baso % (Auto) 0.2, Absolute Neuts (auto) 11.2 H, Absolute Lymphs (auto) 0.90, Nucleated RBC % 0 01/25/21 04:30: Sodium 134 L, Potassium 3.4 L, Chloride 108 H, Carbon Dioxide 15.0 L, Anion Gap 11, BUN 19 H, Creatinine 0.92, Estim Creat Clear Calc 133.15, Est GFR (MDRD) Af Amer 134, Est GFR (MDRD) Non-Af 111, BUN/Creatinine Ratio 20.6 H, Glucose 251 H, Calcium 8.7 01/25/21 06:51: POC Glucose 283 H 01/25/21 11:19: POC Glucose 356 H Current Medications Acetaminophen (Acetaminophen 500 Mg Tablet) 500 mg PO Q4H PRN PRN PRN Reason: Pain 1-10 or Fever Albuterol Sulfate (Albuterol 2.5 Mg/3 Ml Vial.Neb.) 2.5 mg INHALATION Q4H PRN PRN Reason: WHEEZING Budesonide (Budesonide Respules 0.5 Mg/2 Ml Ampul.Neb.) 0.5 mg INHALATION Q12H.RT [facility] Last Admin: 01/25/21 07:59 Dose: 0.5 mg Documented by: Dextrose (Dextrose 50%-Water 25 Gm/50 Ml Disp.Syrin) 0 gm IV X1 PRN; Protocol PRN Reason: Hypoglycemia Protocol Enoxaparin Sodium (Enoxaparin 40 Mg/0.4 Ml Syringe) 40 mg SC DAILY [facility] Last Admin: 01/25/21 10:24 Dose: 40 mg Documented by: Sodium Chloride () 250 mls @ 15 mls/hr IV .[id number] PRN PRN Reason: Saline Flush Last Infusion: 01/25/21 12:12 Dose: Infused Documented by: Sodium Chloride () 250 mls @ 15 mls/hr IV .[id number] PRN PRN Reason: Additional IVPB Infusion Pantoprazole Sodium 40 mg/ (Sodium Chloride) 110 mls @ 330 mls/hr IV Q24 [facility] Pantoprazole Sodium 40 mg/ (Sodium Chloride) 110 mls @ 330 mls/hr IV X1 ONE Stop: 01/25/21 15:32 Ibuprofen (Ibuprofen 600 Mg Tablet) 600 mg PO Q6H PRN PRN PRN Reason: Pain 1-10 or Fever Last Admin: 01/25/21 14:12 Dose: 600 mg Documented by: Insulin Glargine (Insulin Glargine 100 Units/Ml Pen) 20 units SC QHS [facility] Last Admin: 01/25/21 01:18 Dose: 20 u Documented by: Insulin Human Lispro (Insulin Lispro 100 Unit/Ml Insuln.Pen) 0 unit SC ACHS [facility]; Protocol Last Admin: 01/25/21 11:20 Dose: 12 u Documented by: Insulin Human Lispro (Insulin Lispro 100 Unit/Ml Insuln.Pen) 10 unit SC TIDAC [facility] Last Admin: 01/25/21 11:20 Dose: 10 u Documented by: Ondansetron HCl (Ondansetron 4 Mg/2 Ml Vial) 4 mg IV Q8H PRN PRN PRN Reason: NAUSEA/VOMITING Last Admin: 01/24/21 23:10 Dose: 4 mg Documented by: Sodium Chloride (0.9% Saline Lock 10 Ml Syringe) 10 - 40 ml IV UD PRN PRN Reason: Multilumen/Benitez Flush Last Admin: 01/25/21 13:51 Dose: 10 ml Documented by: Sodium Chloride (0.9 % Nacl (Sterile) Posiflush 10 Ml) 10 - 40 ml IV UD PRN PRN Reason: Port access or dressing change [facility] Vital Signs/Narrative: Vital Signs Temp Pulse Resp BP BP Pulse Ox 01/25/21 14:30 36.7 C 115 H 18 124/75 H 100 01/25/21 13:00 132 H 126/59 H 01/25/21 12:00 123 H Medical Necessity - Tobacco Use Smoking Status: Never smoker Assessment/Plan All Active Problems (Last Updated 01/24/21 @ 15:[address] Diogenes Jacome, DO) Diabetic ketoacidosis associated with type 1 diabetes mellitus (Acute) Abscess of left thigh (Acute) Nonhealing surgical wound (Acute) Severe sepsis (Acute) Sinus tachycardia seen on court recording monitor (Acute) Nausea and vomiting (Acute) SIRS (systemic inflammatory response syndrome) (Acute) Lactic acidosis (Acute) Unspecified open wound, left thigh, subsequent encounter (Acute) Hyperkalemia (Acute) 1. Diabetic ketoacidosis Resolved. Suspect due to noncompliance or poor compliance with insulin and glucose checks. Patient states that he is compliant with his long-acting insulin but does forget to take his short acting insulin at times due to oversleeping or just plain forgetting. Plan * Continue with insulin glargine as well as prandial insulin sliding scale. 2. Systemic inflammatory response syndrome Patient with profound leukocytosis which could be reactive given his DKA COVID-19 as well as urinalysis negative Work-up thus far negative. Likely related with the patient's DKA. Plan * Off antibiotics. 3. VTE prophylaxis: High risk. Enoxaparin. 4. Disposition: Pending until the patient can take adequate p.o. Patient high likelihood of readmission. Inpatient E&M: [id number] [facility] L2
[2021-01-25] MEDS: Lactated Ringers 1,000 ML 100 ML IV (15:20)
[2021-01-25 17:11] LABS: Bedside Glucose 184 mg/dL (70-110)
[2021-01-25 21:45] LABS: Bedside Glucose 226 mg/dL (70-110)
[2021-01-26] VITALS (7 sets, daily range): BP systolic 123–132; BP diastolic 62–80; PULSE 85–102; RESP 16–18; TEMP 36.6–36.8; O2SAT 96–100
[2021-01-26] MEDS: Ondansetron 4 MG/2 ML Vial IV ×2 (02:02→21:11)
[2021-01-26] MEDS: Lactated Ringers 1,000 ML 100 ML IV ×3 (02:02→19:42)
[2021-01-26] MEDS: Acetaminophen 500 MG Tablet PO ×2 (06:25→19:39)
[2021-01-26 06:40] LABS: Bedside Glucose 313 mg/dL (70-110)
[2021-01-26] MEDS: Budesonide Respules 0.5 MG/2 ML AMPUL.NEB. INHALATION ×2 (06:52→19:02)
[2021-01-26 06:56] LABS: Absolute Lymphocyte Count 1.06 X10^3/uL (0.83-4.51); Absolute Neutrophil Count 3.6 X10^3/uL (2.0-7.7); Basophil# 0.02 X10^3/uL; Basophil% 0.4 % (0-1); Eosinophil# 0.05 X10^3/uL; Hematocrit 34.3 % (40-54); Hemoglobin 12.5 g/dL (13.0-16.5); Lymphocyte # 1.06 X10^3/ul (4.0); Lymphocyte % 20.3 % (19-41); Mean Corp Hgb Conc 36.4 g/dL (32-36); Mean Corpuscular Hgb 28.9 pg (27.0-32.0); Mean Corpuscular Volume 79.4 fL (80-94); Mean Platelet Vol. 9.3 fl (6.2-12.0); Monocyte# 0.52 X10^3/uL; Monocyte% 9.9 % (0-10); NRBC Flagged by Analyzer 0 % (0-5); Neutrophil # 3.56 X10^3/uL (2.7-7.7); Platelet Count 236 K/mm3 (150-450); RBC Distribution Width CV 12.4 % (11.6-14.6); RBC Distribution Width SD 35.5 fl (35.1-43.9); Red Blood Count 4.32 M/mm3 (4.6-6.2); White Blood Count 5.2 K/mm3 (4.4-11.0)
[2021-01-26 07:27] LABS: Anion Gap 7 (5-15); BUN 13 mg/dL (7-18); BUN/Creat Ratio 19.5 RATIO (10-20); Calcium,Total 8.6 mg/dL (8.5-10.1); Chloride 105 mmol/L (98-107); Creatinine, Serum 0.67 mg/dL (0.70-1.30); EST Glomerular Filtration Rate 161 mL/min (>60); Est Glom Filt Rate - Afr Amer 195 mL/min (>60); Estimated Creatinine Clearance 189.05 ml/min; Glucose 280 mg/dL (74-106); Magnesium 1.9 mg/dL (1.6-2.6); Potassium 2.8 mmol/L (3.5-5.1); Sodium Level 135 mmol/L (136-145)
[2021-01-26] MEDS: Insulin Lispro 100 UNIT/ML INSULN.PEN SC ×3 (07:47→21:19)
[2021-01-26] MEDS: Insulin Lispro 100 UNIT/ML INSULN.PEN 10 UNIT SC ×2 (07:48→17:16)
--- NOTE | 2021-01-26 11:31 | CASEMGMT ---
Late entry for 01/25/21 [employer] Palliative Screening tool completed. Pt did not meet criteria.
[2021-01-26] MEDS: Pantoprazole Sodium 40 MG Tablet PO ×2 (11:38→21:22)
[2021-01-26] MEDS: Enoxaparin 40 MG/0.4 ML Syringe SC (11:38)
[2021-01-26 11:45] LABS: Bedside Glucose 103 mg/dL (70-110)
--- NOTE | 2021-01-26 11:59 | CASEMGMT ---
SW checked in w/pt in regard to home situation, as last time pt was here the home health agency had reported the home being dirty, bed bugs, and that both [facility] were called. SW asked pt how the condition at home is, pt states it is fine, states is cleaned up. SW asked about the bed bugs, pt states they do not have them any more. SW asked about Adult and Children's Services, pt not aware that either agency ever came into the home. Pt again confirmed plan will be to return home at discharge and his grandmother will continue to assist with the wound. No further needs. WOOD Nguyen
--- NOTE | 2021-01-26 12:26 | PN.SURG_ITS ---
Patient Problems: Active and Suspected Problems (Last Updated 01/24/21 @ 15:[address] Diogenes Jacome, DO) Diabetic ketoacidosis associated with type 1 diabetes mellitus (Acute) Abscess of left thigh (Acute) Nonhealing surgical wound (Acute) Left thigh Severe sepsis (Acute) Sinus tachycardia seen on lifter (Acute) Nausea and vomiting (Acute) SIRS (systemic inflammatory response syndrome) (Acute) Lactic acidosis (Acute) Unspecified open wound, left thigh, subsequent encounter (Acute) Hyperkalemia (Acute) Objective: Patient sitting in bed. He states that he continues to have abdominal pain with eating. - Physical Exam Vitals/I&O's: Vital Signs Temp Pulse Resp BP Pulse Ox 97.9 F 100 16 132/62 H 100 01/26/21 14:51 01/26/21 14:51 01/26/21 14:51 01/26/21 14:51 01/26/21 14:51 Oxygen Delivery Method Room Air Weight: 167 lb 8.821 oz Body Mass Index (BMI) 21.4 Finger Stick Blood Glucose 212 Intake and Output for Last 24 Hours 01/24/21 01/25/21 01/26/21 23:59 23:59 23:59 Intake Total 5823.69 / 5823.69 2863.89 / 2863.89 3201.67 / 3201.67 Output Total 1725 / 1950 1575 / 1575 1100 / 1100 Balance 4098.69 / 3873.69 1288.89 / 1288.89 2101.67 / 2101.67 General: Alert, Oriented x3, Cooperative HEENT: Atraumatic Oral: Moist Mucosa Lungs: Normal air movement Cardiovascular: Regular rate Extremities: Capillary Refill Less than 3 Seconds Skin: Ulcer/ Wound - Left posterior leg ulcer. Wound VAC intact. Musculoskeletal: No Tenderness to Palpation of Joints or Extremities Neurological: Cranial nerves II-XII grossly intact Psych/Mental Status: Normal Affect, Appropriate Microbiology Past 72 Hours 01/24/21 11:00 Blood Culture (Wb) - Anticubital Left Blood Culture - Preliminary No growth in 48 hours. 01/24/21 13:20 Mucosa - Nose SARS-CoV-2 Antigen (Rapid) - Final Laboratory Results 01/25/21 16:56: POC Glucose 184 H 01/25/21 21:23: POC Glucose 226 H 01/26/21 06:28: POC Glucose 313 H 01/26/21 06:45: WBC 5.2, RBC 4.32 L, Hgb 12.5 L, Hct 34.3 L, MCV 79.4 L, MCH 28.9, MCHC 36.4 H, RDW Std Deviation 35.5, RDW Coeff of Rabia 12.4, Plt Count 236, MPV 9.3, Immature Gran % (Auto) 0.400, Neut % (Auto) 68.0, Lymph % (Auto) 20.3, [place] % (Auto) 9.9, Eos % (Auto) 1.0, Baso % (Auto) 0.4, Absolute Neuts (auto) 3.6, Absolute Lymphs (auto) 1.06, Nucleated RBC % 0 01/26/21 06:45: Sodium 135 L, Potassium 2.8 L, Chloride 105, Carbon Dioxide 23.0, Anion Gap 7, BUN 13, Creatinine 0.67 L, Estim Creat Clear Calc 189.05, Est GFR (MDRD) Af Amer 195, Est GFR (MDRD) Non-Af 161, BUN/Creatinine Ratio 19.5, Glucose 280 H, Calcium 8.6, Magnesium 1.9 01/26/21 11:37: POC Glucose 103 Current Medications Acetaminophen (Acetaminophen 500 Mg Tablet) 500 mg PO Q4H PRN PRN PRN Reason: Pain 1-10 or Fever Last Admin: 01/26/21 06:25 Dose: 500 mg Documented by: Albuterol Sulfate (Albuterol 2.5 Mg/3 Ml Vial.Neb.) 2.5 mg INHALATION Q4H PRN PRN Reason: WHEEZING Budesonide (Budesonide Respules 0.5 Mg/2 Ml Ampul.Neb.) 0.5 mg INHALATION Q12H.RT [facility] Last Admin: 01/26/21 06:52 Dose: 0.5 mg Documented by: Dextrose (Dextrose 50%-Water 25 Gm/50 Ml Disp.Syrin) 0 gm IV X1 PRN; Protocol PRN Reason: Hypoglycemia Protocol Enoxaparin Sodium (Enoxaparin 40 Mg/0.4 Ml Syringe) 40 mg SC DAILY [facility] Last Admin: 01/26/21 11:38 Dose: 40 mg Documented by: Sodium Chloride () 250 mls @ 15 mls/hr IV .[id number] PRN PRN Reason: Saline Flush Last Infusion: 01/25/21 12:12 Dose: Infused Documented by: Sodium Chloride () 250 mls @ 15 mls/hr IV .[id number] PRN PRN Reason: Additional IVPB Infusion Lactated Ringer's () 1,000 mls @ 100 mls/hr IV .Q10H [facility] Last Admin: 01/26/21 11:38 Dose: 100 mls/hr Documented by: Ibuprofen (Ibuprofen 600 Mg Tablet) 600 mg PO Q6H PRN PRN PRN Reason: Pain 1-10 or Fever Last Admin: 01/25/21 14:12 Dose: 600 mg Documented by: Insulin Glargine (Insulin Glargine 100 Units/Ml Pen) 20 units SC QHS [facility] Last Admin: 01/25/21 21:26 Dose: 20 u Documented by: Insulin Human Lispro (Insulin Lispro 100 Unit/Ml Insuln.Pen) 0 unit SC ACHS [facility]; Protocol Last Admin: 01/26/21 11:49 Dose: Not Given Documented by: Insulin Human Lispro (Insulin Lispro 100 Unit/Ml Insuln.Pen) 10 unit SC TIDAC [facility] Last Admin: 01/26/21 11:38 Dose: Not Given Documented by: Ondansetron HCl (Ondansetron 4 Mg/2 Ml Vial) 4 mg IV Q8H PRN PRN PRN Reason: NAUSEA/VOMITING Last Admin: 01/26/21 02:02 Dose: 4 mg Documented by: Pantoprazole Sodium (Pantoprazole Sodium 40 Mg Tablet) 40 mg PO BID [facility] Last Admin: 01/26/21 11:38 Dose: 40 mg Documented by: Potassium Chloride (Potassium Chloride Oral Tablet 20 Meq[facility] Sodium Chloride (0.9% Saline Lock 10 Ml Syringe) 10 - 40 ml IV UD PRN PRN Reason: Multilumen/Benitez Flush Last Admin: 01/25/21 13:51 Dose: 10 ml Documented by: Sodium Chloride (0.9 % Nacl (Sterile) Posiflush 10 Ml) 10 - 40 ml IV UD PRN PRN Reason: Port access or dressing change Medical Necessity - Tobacco Use Smoking Status: Never smoker Assessment/Plan All Active Problems (Last Updated 01/24/21 @ 15:[address] Diogenes Jacome, DO) Diabetic ketoacidosis associated with type 1 diabetes mellitus (Acute) Abscess of left thigh (Acute) Nonhealing surgical wound (Acute) Severe sepsis (Acute) Sinus tachycardia seen on lifter (Acute) Nausea and vomiting (Acute) SIRS (systemic inflammatory response syndrome) (Acute) Lactic acidosis (Acute) Unspecified open wound, left thigh, subsequent encounter (Acute) Hyperkalemia (Acute) 1. Nonhealing diabetic ulcer left posterior thigh 2. s/p surgical preparation left posterior thigh with incision and drainage and excisional debridement nonhealing infected necrotic diabetic ulcer with abscess including necrotic muscle (276 cm2) on 12/24/20. 3. Diabetic ketoacidosis associated with Type I Diabetes mellitus. 4. Uncontrolled Type I Diabetes mellitus. Left posterior thigh ulcer is stable. Wound VAC in place to 150 mmHg suction. Ulcer does not look infected. Currently not on antibiotics. HgbA1c 8.9 on 01/24/21. Encouraged increase in protein to help with wound healing. Patient states his stomach hurts when I eat. Prealbumin was 10.1 on 12/27/20. Upon discharge, patient will come to the wound center twice a week for wound VAC changes due to lack of proper clean running water at home. He can return next Sunday01/31/21 to the wound center to be seen by Dr. Landin or myself and to have his wound VAC changed. His grandmother is aware of his wound center appointment. [id number]: [id number] Global Visit
--- NOTE | 2021-01-26 13:29 | PN_ITS ---
Patient Problems: Active and Suspected Problems (Last Updated 01/24/21 @ 15:[address] Diogenes Jacome, DO) Diabetic ketoacidosis associated with type 1 diabetes mellitus (Acute) Abscess of left thigh (Acute) Nonhealing surgical wound (Acute) Left thigh Severe sepsis (Acute) Sinus tachycardia seen on granulator (Acute) Nausea and vomiting (Acute) SIRS (systemic inflammatory response syndrome) (Acute) Lactic acidosis (Acute) Unspecified open wound, left thigh, subsequent encounter (Acute) Hyperkalemia (Acute) Subjective: Eating very little. Still with abdominal pain. Vitals/I&O's: Vital Signs Temp Pulse Resp BP Pulse Ox 36.8 C 98 16 123/80 H 100 01/26/21 09:36 01/26/21 09:36 01/26/21 09:36 01/26/21 09:36 01/26/21 09:36 Oxygen Delivery Method Room Air Weight: 76 kg Body Mass Index (BMI) 21.4 Finger Stick Blood Glucose 212 Intake and Output for Last 24 Hours 01/24/21 01/25/21 01/26/21 23:59 23:59 23:59 Intake Total 5823.69 / 5823.69 2863.89 / 2863.89 3201.67 / 3201.67 Output Total 1725 / 1950 1575 / 1575 1100 / 1100 Balance 4098.69 / 3873.69 1288.89 / 1288.89 2101.67 / 2101.67 General: Alert, - - listless HEENT: Atraumatic, Normocephalic Oral: Moist Mucosa, No Gingival or Mucosal Lesions/ Ulcerations Neck: No Nodes, Thyroid Normal Size and Texture Lungs: Clear to auscultation, Normal air movement, No rhonchi, No wheeze, No rales Cardiovascular: Regular rate, Regular Rhythm, Normal S1, Normal S2 Abdomen: Bowel Sounds Present, Soft, Non Tender, Non-Distended, No Hepato- splenomegaly Extremities: No edema, No Calf Tenderness Skin: No rashes, No breakdown Psych/Mental Status: Appropriate, Flat Affect Microbiology Past 72 Hours 01/24/21 11:00 Blood Culture (Wb) - Anticubital Left Blood Culture - Preliminary No growth in 48 hours. 01/24/21 13:20 Mucosa - Nose SARS-CoV-2 Antigen (Rapid) - Final Laboratory Results 01/25/21 16:56: POC Glucose 184 H 01/25/21 21:23: POC Glucose 226 H 01/26/21 06:28: POC Glucose 313 H 01/26/21 06:45: WBC 5.2, RBC 4.32 L, Hgb 12.5 L, Hct 34.3 L, MCV 79.4 L, MCH 28.9, MCHC 36.4 H, RDW Std Deviation 35.5, RDW Coeff of Rabia 12.4, Plt Count 236, MPV 9.3, Immature Gran % (Auto) 0.400, Neut % (Auto) 68.0, Lymph % (Auto) 20.3, [place] % (Auto) 9.9, Eos % (Auto) 1.0, Baso % (Auto) 0.4, Absolute Neuts (auto) 3.6, Absolute Lymphs (auto) 1.06, Nucleated RBC % 0 01/26/21 06:45: Sodium 135 L, Potassium 2.8 L, Chloride 105, Carbon Dioxide 23.0, Anion Gap 7, BUN 13, Creatinine 0.67 L, Estim Creat Clear Calc 189.05, Est GFR (MDRD) Af Amer 195, Est GFR (MDRD) Non-Af 161, BUN/Creatinine Ratio 19.5, Glucose 280 H, Calcium 8.6, Magnesium 1.9 01/26/21 11:37: POC Glucose 103 Current Medications Acetaminophen (Acetaminophen 500 Mg Tablet) 500 mg PO Q4H PRN PRN PRN Reason: Pain 1-10 or Fever Last Admin: 01/26/21 06:25 Dose: 500 mg Documented by: Albuterol Sulfate (Albuterol 2.5 Mg/3 Ml Vial.Neb.) 2.5 mg INHALATION Q4H PRN PRN Reason: WHEEZING Budesonide (Budesonide Respules 0.5 Mg/2 Ml Ampul.Neb.) 0.5 mg INHALATION Q12H.RT LILLY Last Admin: 01/26/21 06:52 Dose: 0.5 mg Documented by: Dextrose (Dextrose 50%-Water 25 Gm/50 Ml Disp.Syrin) 0 gm IV X1 PRN; Protocol PRN Reason: Hypoglycemia Protocol Enoxaparin Sodium (Enoxaparin 40 Mg/0.4 Ml Syringe) 40 mg SC DAILY LILLY Last Admin: 01/26/21 11:38 Dose: 40 mg Documented by: Sodium Chloride () 250 mls @ 15 mls/hr IV .[id number] PRN PRN Reason: Saline Flush Last Infusion: 01/25/21 12:12 Dose: Infused Documented by: Sodium Chloride () 250 mls @ 15 mls/hr IV .[id number] PRN PRN Reason: Additional IVPB Infusion Lactated Ringer's () 1,000 mls @ 100 mls/hr IV .Q10H [facility] Last Admin: 01/26/21 11:38 Dose: 100 mls/hr Documented by: Ibuprofen (Ibuprofen 600 Mg Tablet) 600 mg PO Q6H PRN PRN PRN Reason: Pain 1-10 or Fever Last Admin: 01/25/21 14:12 Dose: 600 mg Documented by: Insulin Glargine (Insulin Glargine 100 Units/Ml Pen) 20 units SC QHS [facility] Last Admin: 01/25/21 21:26 Dose: 20 u Documented by: Insulin Human Lispro (Insulin Lispro 100 Unit/Ml Insuln.Pen) [facility]; Protocol Last Admin: 01/26/21 11:49 Dose: Not Given Documented by: Insulin Human Lispro (Insulin Lispro 100 Unit/Ml Insuln.Pen) 10 unit SC TIDAC [facility] Last Admin: 01/26/21 11:38 Dose: Not Given Documented by: Ondansetron HCl (Ondansetron 4 Mg/2 Ml Vial) 4 mg IV Q8H PRN PRN PRN Reason: NAUSEA/VOMITING Last Admin: 01/26/21 02:02 Dose: 4 mg Documented by: Pantoprazole Sodium (Pantoprazole Sodium 40 Mg Tablet) 40 mg PO BID [facility] Last Admin: 01/26/21 11:38 Dose: 40 mg Documented by: Potassium Chloride (Potassium Chloride Oral Tablet 20 Meq) 40 meq PO X1 ONE Stop: 01/26/21 13:29 Potassium Chloride (Potassium Chloride Oral Tablet 20 Meq) [facility] Sodium Chloride (0.9% Saline Lock 10 Ml Syringe) 10 - 40 ml IV UD PRN PRN Reason: Multilumen/Benitez Flush Last Admin: 01/25/21 13:51 Dose: 10 ml Documented by: Sodium Chloride (0.9 % Nacl (Sterile) Posiflush 10 Ml) 10 - 40 ml IV UD PRN PRN Reason: Port access or dressing change STROKE Vital Signs/Narrative: Vital Signs Temp Pulse Resp BP Pulse Ox 01/26/21 09:36 36.8 C 98 16 123/80 H 100 Medical Necessity - Tobacco Use Smoking Status: Never smoker Assessment/Plan All Active Problems (Last Updated 01/24/21 @ 15:[address] Diogenes Jacome, DO) Diabetic ketoacidosis associated with type 1 diabetes mellitus (Acute) Abscess of left thigh (Acute) Nonhealing surgical wound (Acute) Severe sepsis (Acute) Sinus tachycardia seen on granulator (Acute) Nausea and vomiting (Acute) SIRS (systemic inflammatory response syndrome) (Acute) Lactic acidosis (Acute) Unspecified open wound, left thigh, subsequent encounter (Acute) Hyperkalemia (Acute) 1. Diabetic ketoacidosis Resolved. Suspect due to noncompliance or poor compliance with insulin and glucose checks. Patient states that he is compliant with his long-acting insulin but does forget to take his short acting insulin at times due to oversleeping or just plain forgetting. Plan * Continue with insulin glargine as well as prandial insulin sliding scale. * Discussed with the patient about being compliant with his medications help prevent long-term consequences such as stroke, PAD etc. Attempted to empower him to be able to take ownership over his disease but also recognizing that this diseases not his fault but he needs to take responsibility for managing it appropriately to help prevent long-term consequences. 2. Systemic inflammatory response syndrome Patient with profound leukocytosis which could be reactive given his DKA COVID-19 as well as urinalysis negative Work-up thus far negative. Likely related with the patient's DKA. Plan * Off antibiotics. 3. Intractable nausea and vomiting Could be gastroparesis versus psychosomatic. Purulent the patient's home condition is very poor and he may be reticent about returning home. Plan: * Check an abdominal x-ray though his abdominal exam is very unremarkable. Further recommendations to follow based on the abdominal strain. 4. VTE prophylaxis: High risk. Enoxaparin. 5. Disposition: Pending until the patient can take adequate p.o. Patient high likelihood of readmission. 6. Left leg wound Continue with wound care. Patient will need to go to the wound center for wound VAC changes given the lack of proper clean running water at home. 7. Hypokalemia Replace and monitor Inpatient E&M: [id number] Subs Hosp L2
[2021-01-26] MEDS: Potassium Chloride Oral Tablet 20 MEQ 40 MEQ PO ×2 (14:48→17:16)
--- NOTE | 2021-01-26 14:48 | PN.PCM_ITS ---
Type of Wound Date of Service: 01/26/21 Chief Complaint: None healing postsurgical wound status post abscess incision and drainage by Dr. Laura on 12/10/2020 History of Wound: Surgery 12/24/20 - Surgical preparation left posterior thigh with incision and drainage and excisional debridement nonhealing infected necrotic diabetic ulcer with abscess including necrotic muscle (276 cm2). Wound care - Wound VAC at 150 mmHg to be changed three times per week. Surgical wound cultures positive for Rhizopus species, Klebsiella pneumoniae, and Anaerobic cocci. ID was consulted and he was on Doxycycline and Unasyn while hospitalized and was discharged on Augmentin and Doxycycline for an additional 5 days. Prealbumin on 12/27/20 was 10.1. Encouraged protein supplementation to help with wound healing. When he was discharged, on 12/28/20, he went to [facility]. Today he denies fever. He states his appetite is good. Patient presents for delayed wound healing of surgical I&D of an abscess on 12/10/20 to his left thigh. Patient was originally seen in the ER 4 days prior to his hospital admission for a draining wound to his left thigh. He was sent home on Keflex and Bactrim, no cultures were obtained at that ER visit. His PCP saw him later and felt his wound was not healing, looking worse and sent him back to the ER. At that time his blood sugars were over 600 and he was admitted for DKA, RADHA and sepsis. During his admission he was placed on an insulin drip, given IV fluids and wound cultures were obtained. His wound cultures grew Klebsiella, Enterobacter and Staphylococcus. He was then switched to oral Levaquin for 7 days which he has completed. During his hospital visit his A1c was greater than 16.0 and his home insulin was adjusted. He was discharged on 12-13-20 with home health care for wound VAC changes 3x/week. His wound has not improved over the last 10 days with the wound VAC and home health care and was sent to the wound healing center by his surgeon Dr. Laura. He denies any systemic or any localized signs of infection at this time. He does state that the site is still painful. He does note that with regard to his uncontrolled type 1 diabetes, but he is following up with endocrinology and that his typical fasting blood glucoses range between 150 and 200. - Physical Exam Vital Signs Temp Pulse Resp BP Pulse Ox 98.3 F 98 16 123/80 H 100 01/26/21 09:36 01/26/21 09:36 01/26/21 09:36 01/26/21 09:36 01/26/21 09:36 Assessment/Plan Clinical Impression(s) from Imaging Studies Chest X-Ray 01/24/21 11:40 IMPRESSION: No acute cardiopulmonary findings Electronically Signed: Diogenes Terry DO at 12:03 EDT Tel , Service support , Chest X-Ray 01/24/21 14:05 IMPRESSION: Right subclavian central venous catheter with tip terminating in the lower SVC. No pneumothorax. Electronically Signed: Dmitry Dave MD ([place]) at 14:46 EDT , Service support , Active Problems (Last Updated 01/24/21 @ 15:[address] 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 Nonhealing infected necrotic diabetic ulcer with abscess left posterior thigh. 2. DKA. 3. Sepsis. 4. Type I Diabetes mellitus, uncontrolled. 5. HgbA1c >14. Plan: Wound care?wound VAC 150 mmHg. Dressing to be changed 3 times a week. Surgical wound cultures positive for Rhizopus species, Klebsiella pneumoniae, and Anaerobic cocci. ID was consulted and he was on Doxycycline and Unasyn while hospitalized and was discharged on Augmentin and Doxycycline for an additional 5 days, which he has completed. He is having difficult time straightening his left leg due to having kept it bent for so long. He has pain when attempted taking to straighten his leg. He is working with physical therapy at [facility]. Follow-up in 2 weeks.
--- NOTE | 2021-01-26 15:58 | RAD_ITS ---
STUDY: X-RAY - ABDOMEN/PELVIS REASON FOR EXAM: Male, 20 years old. Abdominal pain TECHNIQUE: Frontal view COMPARISON: None. FINDINGS: Normal visualized lung bases. There is an unremarkable bowel gas pattern. There is no demonstrated free abdominal air. The visualized liver, spleen and kidneys are grossly normal in size and morphology. Normal soft tissue structures. Normal visualized osseous structures. RAD/Abdomen Single View (Portable) IMPRESSION: Normal x-ray examination of the abdomen and pelvis. Electronically Signed: Branden Mcdowell DO at 16:45 EDT Tel [phone], Service support ,
[2021-01-26 17:05] LABS: Bedside Glucose 207 mg/dL (70-110)
[2021-01-26] MEDS: Ibuprofen 600 MG Tablet PO (21:11)
[2021-01-26 21:30] LABS: Bedside Glucose 188 mg/dL (70-110)
[2021-01-27 03:00] VITALS: BP 120/60; PULSE 88; RESP 16; TEMP 37.1; O2SAT 98
[2021-01-27] MEDS: Lactated Ringers 1,000 ML 100 ML IV (05:07)
[2021-01-27 06:20] LABS: Bedside Glucose 209 mg/dL (70-110)
[2021-01-27 07:04] VITALS: PULSE 82; RESP 20; O2SAT 97
[2021-01-27] MEDS: Budesonide Respules 0.5 MG/2 ML AMPUL.NEB. INHALATION (07:04)
[2021-01-27 07:57] LABS: Anion Gap 7 (5-15); BUN 7 mg/dL (7-18); BUN/Creat Ratio 15.6 RATIO (10-20); Calcium,Total 8.5 mg/dL (8.5-10.1); Chloride 105 mmol/L (98-107); Creatinine, Serum 0.45 mg/dL (0.70-1.30); EST Glomerular Filtration Rate 255 mL/min (>60); Est Glom Filt Rate - Afr Amer 308 mL/min (>60); Estimated Creatinine Clearance 281.48 ml/min; Glucose 203 mg/dL (74-106); Magnesium 1.9 mg/dL (1.6-2.6); Potassium 2.7 mmol/L (3.5-5.1); Sodium Level 138 mmol/L (136-145)
[2021-01-27] MEDS: Insulin Lispro 100 UNIT/ML INSULN.PEN SC ×2 (08:13→11:41)
[2021-01-27] MEDS: Insulin Lispro 100 UNIT/ML INSULN.PEN 10 UNIT SC ×2 (08:13→11:41)
[2021-01-27] MEDS: Potassium Chloride Oral Tablet 20 MEQ 40 MEQ PO ×3 (08:18→10:36)
[2021-01-27] MEDS: Ibuprofen 600 MG Tablet PO (08:36)
[2021-01-27 09:00] VITALS: BP 123/79; PULSE 101; RESP 18; TEMP 37; O2SAT 98
--- NOTE | 2021-01-27 10:10 | PCM.DC ---
- Discharge Diagnoses Current Active Problems: Current Active and Chronic Problems (Last Updated 01/24/21 @ 15:[address] 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) Sinus tachycardia seen on monitor technician (Acute) Nausea and vomiting (Acute) SIRS (systemic inflammatory response syndrome) (Acute) Lactic acidosis (Acute) Unspecified open wound, left thigh, subsequent encounter (Acute) Hyperkalemia (Acute) You will use the following diet at home:: Calorie/Carbohydrate Controlled (specify 1200, 1400, etc) - 1800 Discharge Activity: Return to Normal Activity Allergies/Adverse Reactions: Allergies No Known Allergies Allergy (Verified 01/21/21 13:07) Medications to take at Discharge Albuterol Inhaler [Ventolin Hfa] 2 puff INHALATION Q4H PRN PRN 02/15/19 Fluticasone 44 Mcg [Flovent 44 Mcg] 2 puff IH BID 11/12/19 Acetaminophen Liquid [Tylenol Liquid] 650 mg PO Q6H PRN PRN udc 12/28/20 Insulin Glargine [Lantus SoloStar Pen] 20 unit SC QHS 01/24/21 Insulin Lispro [Humalog KwikPen] See Protocol SC ACHS 01/24/21 Insulin Lispro [Insulin Lispro Kwikpen U-100] 10 unit SC TIDAC MDD 45 01/24/21 Polyethylene Glycol 3350 [Miralax] 17 gm PO DAILY PRN PRN 01/24/21 Potassium Chloride Oral Tablet [K-Dur] 20 meq PO BID 01/24/21 Primary Care Physician: Tori Butler MD [Primary Care Provider] - Within 2 Weeks Test Results: Test results from this visit will be discussed in further detail at your follow-up appointment, if applicable. Please Follow Up With: wound care When: 01/31/2021 Proposed Discharge Date: 01/27/21
--- NOTE | 2021-01-27 10:12 | PCM.DC.SUM ---
Discharge Date and Diagnosis - Problem List Patient Problems: Active and Suspected Problems (Last Updated 01/24/21 @ 15:[address] Diogenes Jacome DO) Diabetic ketoacidosis associated with type 1 diabetes mellitus (Acute) Sinus tachycardia seen on sales representative raw fibers (Acute) Nausea and vomiting (Acute) SIRS (systemic inflammatory response syndrome) (Acute) Lactic acidosis (Acute) Date of Admission: 01/24/21 Date of Discharge: 01/27/21 - Primary Discharge Diagnosis Acute Problems: Active Problems (Last Updated 01/24/21 @ 15:[address] Diogenes Jacome DO) Diabetic ketoacidosis associated with type 1 diabetes mellitus (Acute) Abscess of left thigh (Acute) Nonhealing surgical wound (Acute) Left thigh Severe sepsis (Acute) Sinus tachycardia seen on sales representative raw fibers (Acute) Nausea and vomiting (Acute) SIRS (systemic inflammatory response syndrome) (Acute) Lactic acidosis (Acute) Unspecified open wound, left thigh, subsequent encounter (Acute) Hyperkalemia (Acute) - Secondary Discharge Diagnosis Chronic Problems: Chronic Problems (Last Updated 01/24/21 @ 15:[address] 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 No pneumothorax. Electronically Signed: Dmitry Dave MD ([place]) at 14:46 EDT , Service support , KUB X-Ray 01/26/21 15:58 IMPRESSION: Normal x-ray examination of the abdomen and pelvis. Electronically Signed: Branden Mcdowell DO at 16:45 EDT Tel [phone], Service support , Consultations 01/24/21 14:49 Consult: Onc/Wound/cone sewer Routine Comment: Reason for Consult:: Has wound vac due to be changed today Operations: None, - - OR 12/24/2020 for I&D left thigh nonhealing necrotic infected wound Procedures: None Summary of Care Provided: The patient is a 20 year old M resents with intractable nausea and vomiting. Patient was found to be in diabetic ketoacidosis. Additionally patient had cyst Dimick plantar response syndrome did have a profound leukocytosis of 38,000. The systemic inflammatory response from likely a component of the patient's nausea vomiting and DKA as no infectious source was identified. Patient had been started on antibiotics which were discontinued. Patient's hospitalization was protracted due to just nausea and vomiting and reticence to eat. Patient was monitored in today patient has been eating better. Patient has had some issues with hypokalemia which need to be replaced. Is likely due to loss due to the vomiting. Patient apparently has a squalid home environment with no clean running water. Patient does have a wound on his left lower extremity which has a wound VAC in it. That was changed over to be due to be changed on the with wound care. Did express to the patient importance for compliance with medications. Patient states that he can forget to take his medications but states that he does take his long-acting insulin daily. Impressed upon him that he needs to be compliant to help prevent him from coming back into the hospital and also to help prevent long-term consequences of uncontrolled diabetes. Patient is apparently does present as well which complicates his overall picture and may impede him being fully compliant in regards to his insulin regimen. [] Patient Problems: Active and Suspected Problems (Last Updated 01/24/21 @ 15:[address] Diogenes Jacome DO) Diabetic ketoacidosis associated with type 1 diabetes mellitus (Acute) Sinus tachycardia seen on sales representative raw fibers (Acute) Nausea and vomiting (Acute) SIRS (systemic inflammatory response syndrome) (Acute) Lactic acidosis (Acute) - Physical Exam Vitals/I&O's: Vital Signs Temp Pulse Resp BP Pulse Ox 37.0 C 101 H 18 123/79 H 98 01/27/21 09:00 01/27/21 09:00 01/27/21 09:00 01/27/21 09:00 01/27/21 09:00 Oxygen Delivery Method Room Air Weight: 76 kg Body Mass Index (BMI) 21.4 Finger Stick Blood Glucose 212 Intake and Output for Last 24 Hours 01/25/21 01/26/21 01/27/21 23:59 23:59 23:59 Intake Total 2863.89 / 2863.89 4708.34 / 4708.34 1241.67 / 1241.67 Output Total 1575 / 1575 1900 / 2200 600 / 600 Balance 1288.89 / 1288.89 2808.34 / 2508.34 641.67 / 641.67 General: Alert, No apparent distress HEENT: Atraumatic, Normocephalic Oral: Moist Mucosa, No Gingival or Mucosal Lesions/ Ulcerations Neck: No Nodes, Thyroid Normal Size and Texture Lungs: Clear to auscultation, Normal air movement, No rhonchi, No wheeze, No rales Cardiovascular: Regular rate, Regular Rhythm, Normal S1, Normal S2, No murmurs Abdomen: Bowel Sounds Present, Soft, Non Tender Extremities: No edema, No Calf Tenderness Skin: No rashes, No breakdown Psych/Mental Status: Normal Affect, Appropriate Microbiology Past 72 Hours 01/24/21 11:00 Blood Culture (Wb) - Anticubital Left Blood Culture - Preliminary No growth in 48 hours. 01/24/21 13:20 Mucosa - Nose SARS-CoV-2 Antigen (Rapid) - Final Laboratory Results 01/26/21 11:37: POC Glucose 103 01/26/21 16:59: POC Glucose 207 H 01/26/21 21:17: POC Glucose 188 H 01/27/21 05:50: Sodium 138, Potassium 2.7 L*, Chloride 105, Carbon Dioxide 26.0, Anion Gap 7, BUN 7, Creatinine 0.45 L, Estim Creat Clear Calc 281.48, Est GFR (MDRD) Af Amer 308, Est GFR (MDRD) Non-Af 255, BUN/Creatinine Ratio 15.6, Glucose 203 H, Calcium 8.5, Magnesium 1.9 01/27/21 06:13: POC Glucose 209 H Current Medications Acetaminophen (Acetaminophen 500 Mg Tablet) 500 mg PO Q4H PRN PRN PRN Reason: Pain 1-10 or Fever Last Admin: 01/26/21 19:39 Dose: 500 mg Documented by: Albuterol Sulfate (Albuterol 2.5 Mg/3 Ml Vial.Neb.) 2.5 mg INHALATION Q4H PRN PRN Reason: WHEEZING Budesonide (Budesonide Respules 0.5 Mg/2 Ml Ampul.Neb.) 0.5 mg INHALATION Q12H.RT [facility] Last Admin: 01/27/21 07:04 Dose: 0.5 mg Documented by: Dextrose (Dextrose 50%-Water 25 Gm/50 Ml Disp.Syrin) 0 gm IV X1 PRN; Protocol PRN Reason: Hypoglycemia Protocol Enoxaparin Sodium (Enoxaparin 40 Mg/0.4 Ml Syringe) 40 mg SC DAILY [facility] Last Admin: 01/26/21 11:38 Dose: 40 mg Documented by: Sodium Chloride () 250 mls @ 15 mls/hr IV .[id number] PRN PRN Reason: Saline Flush Last Infusion: 01/25/21 12:12 Dose: Infused Documented by: Sodium Chloride () 250 mls @ 15 mls/hr IV .[id number] PRN PRN Reason: Additional IVPB Infusion Lactated Ringer's () 1,000 mls @ 100 mls/hr IV .Q10H [facility] Last Admin: 01/27/21 05:07 Dose: 100 mls/hr Documented by: Potassium Chloride () 10 meq in 100 mls @ 100 mls/hr IV BOLUS Q1H [facility] Stop: 01/27/21 12:14 Ibuprofen (Ibuprofen 600 Mg Tablet) 600 mg PO Q6H PRN PRN PRN Reason: Pain 1-10 or Fever Last Admin: 01/27/21 08:36 Dose: 600 mg Documented by: Insulin Glargine (Insulin Glargine 100 Units/Ml Pen) 20 units SC QHS [facility] Last Admin: 01/26/21 21:19 Dose: 20 u Documented by: Insulin Human Lispro (Insulin Lispro 100 Unit/Ml Insuln.Pen) 0 unit SC ACHS [facility]; Protocol Last Admin: 01/27/21 08:13 Dose: 3 u Documented by: Insulin Human Lispro (Insulin Lispro 100 Unit/Ml Insuln.Pen) 10 unit SC TIDAC [facility] Last Admin: 01/27/21 08:13 Dose: 10 u Documented by: Ondansetron HCl (Ondansetron 4 Mg/2 Ml Vial) 4 mg IV Q8H PRN PRN PRN Reason: NAUSEA/VOMITING Last Admin: 01/26/21 21:11 Dose: 4 mg Documented by: Pantoprazole Sodium (Pantoprazole Sodium 40 Mg Tablet) 40 mg PO BID [facility] Last Admin: 01/26/21 21:22 Dose: 40 mg Documented by: Potassium Chloride (Potassium Chloride [facility]t 20 Meq) [facility] Last Admin: 01/27/21 08:18 Dose: 40 meq Documented by: Sodium Chloride (0.9% Saline Lock 10 Ml Syringe) 10 - 40 ml IV UD PRN PRN Reason: Multilumen/Benitez Flush Last Admin: 01/25/21 13:51 Dose: 10 ml Documented by: Sodium Chloride (0.9 % Nacl (Sterile) Posiflush 10 Ml) 10 - 40 ml IV UD PRN PRN Reason: Port access or dressing change Discharge Activity: Return to Normal Activity Home Medications: Medications to take at Discharge Albuterol Inhaler [Ventolin Hfa] 2 puff INHALATION Q4H PRN PRN 02/15/19 Fluticasone 44 Mcg [Flovent 44 Mcg] 2 puff IH BID 11/12/19 Acetaminophen Liquid [Tylenol Liquid] 650 mg PO Q6H PRN PRN udc 12/28/20 Insulin Glargine [Lantus SoloStar Pen] 20 unit SC QHS 01/24/21 Insulin Lispro [Humalog KwikPen] See Protocol [facility] 01/24/21 Insulin Lispro [Insulin Lispro Kwikpen U-100] 10 unit SC TIDAC MDD 45 01/24/21 Polyethylene Glycol 3350 [Miralax] 17 gm PO DAILY PRN PRN 01/24/21 Potassium Chloride Oral Tablet [K-Dur] 20 meq PO BID 01/24/21 Primary Care Physician: Tori Butler MD [Primary Care Provider] - Within 2 Weeks Please Follow Up With: wound care When: 01/31/2021 Disposition: Home Minutes spent on discharge:: 32 Patient Condition:: Good Medical Necessity - Tobacco Use Smoking Status: Never smoker Meaningful Use Info Meaningful Use Diagnoses (Choose all that apply): None applicable Inpatient E&M: 57717 Disch Hosp
[2021-01-27] MEDS: Pantoprazole Sodium 40 MG Tablet PO (10:37)
[2021-01-27] MEDS: Enoxaparin 40 MG/0.4 ML Syringe SC (10:37)
--- NOTE | 2021-01-27 11:08 | NURSING ---
Central line is Dc . Sutures removed and line removed by this nurse per policy. Pt is instructed to lay flat. Nurse remains with pt per recommended time for laying flat.
[2021-01-27 11:41] LABS: Bedside Glucose 232 mg/dL (70-110)
[2021-01-27 11:49] VITALS: BP 110/74; PULSE 88; RESP 18; TEMP 37; O2SAT 100
--- NOTE | 2021-01-27 11:51 | NURSING ---
Pt switched over to home VAC.
--- NOTE | 2021-01-28 15:10 | CASEMGMT ---
RN CM Discharge Note DC Date: 01/27/21 DC Diagnosis: DKA, wound care with wound vac DC Disposition: Home with follow up at wound center on sunday. Intro role of CM to patient via phone. Pt states he is well, and understands his instructions. His wound vac is functioning and he is checking his blood sugars. States he has his prescriptions and no questions at this time. No care improvement suggestions given. Morelia MONTEZ RN ACM
--- NOTE | 2021-01-31 08:25 | CASEMGMT ---
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 SW returned her call, message left letting her know pt was discharged on 01/27/21 with follow up at [facility], and to call this SW with any additional questions. WOOD Nguyen
== END 2021-01-27 11:53 | disposition home or self-care (01) | DRG 420 ==
LOC: ED 12:43 → ICU 15:28 → MS3 01-25 15:23
PROVIDERS: Internal Medicine Critical Care Medicine; Emergency Provider Emergency Medicine; PCP Pediatrics
DX: E10.10 Type 1 diabetes mellitus with ketoacidosis without coma (principal); L02.416 Cutaneous abscess of left lower limb; Z79.4 Long term (current) use of insulin; J45.40 Moderate persistent asthma, uncomplicated; K21.9 Gastro-esophageal reflux disease without esophagitis; E87.5 Hyperkalemia; E87.6 Hypokalemia; R00.0 Tachycardia, unspecified; S71.102D Unspecified open wound, left thigh, subsequent encounter; Z91.19 Patient's noncompliance with other medical treatment and regimen; Z65.9 Problem related to unspecified psychosocial circumstances; Z79.899 Other long term (current) drug therapy; Z79.51 Long term (current) use of inhaled steroids
CPT/HCPCS: 36415; 71045; 74018; 80048; 80053; 81001; 82009; 82803; 82962; 83036; 83605; 83735; 85025; 85027; 85610; 85730; 87040; 87426; 93005; 94640; 97802; 97803; 99285; J7030; J7040; J7050; J7120; A4216; C1751; J2405; J7799

== ENCOUNTER 2021-02-07 14:00 | Outpatient (RCR) | payer MEDICAID, SELFPAY ==
[2021-01-10 00:37] VITALS: BP 131/76; RESP 18; TEMP 36.6
[2021-01-10 09:30] VITALS: BP 122/85; PULSE 110; RESP 20; TEMP 36.7
--- NOTE | 2021-01-10 12:15 | PCM.WC.PN ---
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 Laura on 12/10/2020 History of Wound: Surgery 12/24/20 - Surgical preparation left posterior thigh with incision and drainage and excisional debridement nonhealing infected necrotic diabetic ulcer with abscess including necrotic muscle (276 cm2). Wound care - Wound VAC at 150 mmHg to be changed three times per week. Surgical wound cultures positive for Rhizopus species, Klebsiella pneumoniae, and Anaerobic cocci. ID was consulted and he was on Doxycycline and Unasyn while hospitalized and was discharged on Augmentin and Doxycycline for an additional 5 days. Prealbumin on 12/27/20 was 10.1. Encouraged protein supplementation to help with wound healing. When he was discharged, on 12/28/20, he went to [facility]. Today he denies fever. He states his appetite is good. Patient presents for delayed wound healing of surgical I&D of an abscess on 12/10/20 to his left thigh. Patient was originally seen in the ER 4 days prior to his hospital admission for a draining wound to his left thigh. He was sent home on Keflex and Bactrim, no cultures were obtained at that ER visit. His PCP saw him later and felt his wound was not healing, looking worse and sent him back to the ER. At that time his blood sugars were over 600 and he was admitted for DKA, RADHA and sepsis. During his admission he was placed on an insulin drip, given IV fluids and wound cultures were obtained. His wound cultures grew Klebsiella, Enterobacter and Staphylococcus. He was then switched to oral Levaquin for 7 days which he has completed. During his hospital visit his A1c was greater than 16.0 and his home insulin was adjusted. He was discharged on 12-13-20 with home health care for wound VAC changes 3x/week. His wound has not improved over the last 10 days with the wound VAC and home health care and was sent to the wound healing center by his surgeon Dr. Laura. He denies any systemic or any localized signs of infection at this time. He does state that the site is still painful. He does note that with regard to his uncontrolled type 1 diabetes, but he is following up with endocrinology and that his typical fasting blood glucoses range between 150 and 200. Progress of Wound: Left thigh wound is stable. - Physical Exam Vital Signs Temp Pulse Resp BP 98.1 F 110 H 20 H 122/85 H 01/10/21 09:30 01/10/21 09:30 01/10/21 09:30 01/10/21 09:30 General: Alert, Oriented x3, Cooperative HEENT: Atraumatic Oral: Moist Mucosa Cardiovascular: Regular rate, Regular Rhythm Abdomen: Bowel Sounds Present, Soft Extremities: Capillary Refill Less than 3 Seconds Skin: Ulcer/ Wound - Left thigh/posterior thigh wound is pink and stable. Wound Measurements and Assessment WC - Nurse 1 - General Ulcer Measurement Start: 01/10/21 09:29 Freq: Status: Active Protocol: Activity Type Activity Date Activity User E-Sign Co-Sign Detail Recorded Client Recorded Date Recorded By Document 01/10/21 09:30 DL [id number] 01/10/21 09:42 DL 01/10/21 09:30 Wound Center Nurse 1 [Ulcer Assessment] 1 left post thigh -Current Size (cm) - Length 21.3 -Current Size (cm) - Width 8.4 -Current Size (cm) - Depth 1.5 -Total Square Cm 178.92 -Photo Taken Yes -Exudate Amt Medium -Exudate Type Serosanguineous -Wound Margin Distinct, Outline Attached -Granulation Amt Large (67-100%) -Granulation Quality Red -Necrosis Amt Small (1-33%) -Necrotic Tissue Type Adherent Slough -Structure Exposed N/A -Texture (Summer-wound Skin Appearance) Scarring -Moisture (Summer-wound Skin Appearance No Abnormality ) -Color (Summer-wound Skin Appearance) No Abnormality -Ulcer Cleansing Wound Cleanser -Foul Odor after Cleansing No -Anesthetic Used 4% Lidocaine Solution - Nurse 2 - General Ulcer CM Notes Start: 01/10/21 09:29 Freq: Status: Active Protocol: Activity Type Activity Date Activity User E-Sign Co-Sign Detail Recorded Client Recorded Date Recorded By Document 01/10/21 09:58 [id number] 01/10/21 10:03 ROSE 01/10/21 09:58 Wound Center Nurse 2 [Procedure/Treatment] -Time 09:58 -Correct Patient Yes -Correct Side, Site, Position Yes -Correct Procedure Yes -Procedure Performed Yes -Type of Procedure Debridement -Clinical Debridement Subcutaneous -Tissue Removed Subcutaneous -Post Debridement (cm) - Length 22.5 -Post Debridement (cm) - Width 8.6 -Post Debridement (cm) - Depth 1.0 -Total Square (Post) (cm) 193.50 -Area of Debridement (cm) - Length 22.5 -Area of Debridement (cm) - Width 8.6 -Total Square (Area) (cm) 193.50 -Tunneling No -Undermining/Tunneling No -Circular Undermining No -Wound/Ulcer Outcome Not Healed -Ulcer Cleansing Rinsed/ Irrigated with Saline -Foul Odor after Cleansing No -Bioengineered Tissue No -Bleeding Controlled with Pressure -Offloading No -Treatment Response Procedure Tolerated Well -Debridement - Subq, 1st 20sq cm Yes -Debridement, SubQ, ea addt'l 20sq cm 9 or part thereof [See Physician Procedure note for Specifics] Pain Scale: 0-10 Numeric [Pain] -Is Patient Pain Free? Yes - Nurse 3 - General Ulcer D/C NN Start: 01/10/21 09:29 Freq: Status: Active Protocol: Activity Type Activity Date Activity User E-Sign Co-Sign Detail Recorded Client Recorded Date Recorded By Document 01/10/21 10:11 [facility] [id number] 01/10/21 10:12 [facility] 01/10/21 10:11 Wound Care Nurse 3 [Wound Dressing] 1 left post thigh -Ulcer Cleansing Rinsed/ Irrigated with Saline -Foul Odor after Cleansing No -Primary Dressing Applied Other -Other Dressing moist to dry per d pawan director of provider relations -Primary Dressing Covered/Secured Dry Gauze, with Secured with Tape,Other -Other Covering abd [Post Procedure Tolerated] -Treatment Response Procedure Tolerated Well - Visit Discharge [Visit Discharge Information] -Discharge Condition Stable -Ambulatory Status Wheelchair -Transportation transport [Facility Notification] -Facility Type [facility] Musculoskeletal: Tenderness - Patient has left knee tenderness. He has kept his leg bent, and now is having difficulty straightening it. He is unable to straighten it completely and has tenderness and pain when doing so. Neurological: Cranial nerves II-XII grossly intact Psych/Mental Status: Normal Affect, Impulsive - He keeps sticking his fingers into his wound. When told to stop, he said he's trying not to. Debridement Note Post-Debridement Measurements/Treatment - Nurse 2 - General Ulcer CM Notes Start: 01/10/21 09:29 Freq: Status: Active Protocol: Activity Type Activity Date Activity User E-Sign Co-Sign Detail Recorded Client Recorded Date Recorded By Document 01/10/21 09:58 [id number] 01/10/21 10:03 ROSE 01/10/21 09:58 Wound Center Nurse 2 1 left post thigh -Time 09:58 -Correct Patient Yes -Correct Side, Site, Position Yes -Correct Procedure Yes -Procedure Performed Yes -Type of Procedure Debridement -Clinical Debridement Subcutaneous -Tissue Removed Subcutaneous -Post Debridement (cm) - Length 22.5 -Post Debridement (cm) - Width 8.6 -Post Debridement (cm) - Depth 1.0 -Total Square (Post) (cm) 193.50 -Area of Debridement (cm) - Length 22.5 -Area of Debridement (cm) - Width 8.6 -Total Square (Area) (cm) 193.50 -Tunneling No -Undermining/Tunneling No -Circular Undermining No -Wound/Ulcer Outcome Not Healed -Ulcer Cleansing Rinsed/ Irrigated with Saline -Foul Odor after Cleansing No -Bioengineered Tissue No -Bleeding Controlled with Pressure -Offloading No -Treatment Response Procedure Tolerated Well -Debridement - Subq, 1st 20sq cm Yes -Debridement, SubQ, ea addt'l 20sq cm 9 or part thereof Pain Scale: 0-10 Numeric Is Patient Pain Free? Yes - Nurse 3 - General Ulcer D/C NN Start: 01/10/21 09:29 Freq: Status: Active Protocol: Activity Type Activity Date Activity User E-Sign Co-Sign Detail Recorded Client Recorded Date Recorded By Document 01/10/21 10:11 [facility] [id number] 01/10/21 10:12 [facility] 01/10/21 10:11 Wound Care Nurse 3 1 left post thigh -Ulcer Cleansing Rinsed/ Irrigated with Saline -Foul Odor after Cleansing No -Primary Dressing Applied Other -Other Dressing moist to dry per d pawan director of provider relations -Primary Dressing Covered/Secured with Dry Gauze, Secured with Tape,Other -Other Covering abd Treatment Response Procedure Tolerated Well WC - Visit Discharge Discharge Condition Stable Ambulatory Status Wheelchair Transportation transport Facility Type [facility] Wound debrided: Left lateral leg wound Laterality: Left Type of Debridement: Excisional debridement Anesthesia Used: 5% Lidocaine Gel Depth: Down to and including healthy tissue, in the subcutaneous layer, to muscle Percentage of wound debrided: 100 Instrument Used: 7mm curette Tissue Removed: Subcutaneous tissue and slough into the muscle. Severity: Fat Layer Exposed Amount of bleeding with debridement: Mild Bleeding Controlled with: Pressure, Compression and gauze Assessment/Plan Assessment: 1. Nonhealing infected necrotic diabetic ulcer with abscess left posterior thigh. 2. DKA. 3. Sepsis. 4. Type I Diabetes mellitus, uncontrolled. 5. HgbA1c >14. Plan: Wound care?wound VAC 150 mmHg. Dressing to be changed 3 times a week. Surgical wound cultures positive for Rhizopus species, Klebsiella pneumoniae, and Anaerobic cocci. ID was consulted and he was on Doxycycline and Unasyn while hospitalized and was discharged on Augmentin and Doxycycline for an additional 5 days, which he has completed. He is having difficult time straightening his left leg due to having kept it bent for so long. He has pain when attempted taking to straighten his leg. He is working with physical therapy at [facility]. Follow-up in 2 weeks. [id number]: [id number] Global Visit
--- NOTE | 2021-01-10 12:35 | HP.PCM_ITS ---
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 Laura on 12/10/2020 History of Wound: Patient presents for delayed wound healing of surgical I&D of an abscess on 12/10/20 to his left thigh. Patient was originally seen in the ER 4 days prior to his hospital admission for a draining wound to his left thigh. He was sent home on Keflex and Bactrim, no cultures were obtained at that ER visit. His PCP saw him later and felt his wound was not healing, looking worse and sent him back to the ER. At that time his blood sugars were over 600 and he was admitted for DKA, RADHA and sepsis. During his admission he was placed on an insulin drip, given IV fluids and wound cultures were obtained. His wound cultures grew Klebsiella, Enterobacter and Staphylococcus. He was then switched to oral Levaquin for 7 days which he has completed. During his hospital visit his A1c was greater than 16.0 and his home insulin was adjusted. He was discharged on 12-13-20 with home health care for wound VAC changes 3x/week. His wound has not improved over the last 10 days with the wound VAC and home health care and was sent to the wound healing center by his surgeon Dr. Laura. He denie s any systemic or any localized signs of infection at this time. He does state that the site is still painful. He does note that with regard to his uncontrolled type 1 diabetes, but he is following up with endocrinology and that his typical fasting blood glucoses range between 150 and 200. Past medical, family, and social history reviewed and not pertinent to the current visit and all other systems reviewed and negative with exception of those listed above. Past Medical History Past Medical History: Chronic Problems (Last Reviewed 10/27/20 @ 11:[address] 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 Allergies/Adverse Reactions: Allergies No Known Allergies Allergy (Verified 12/24/20 05:39) Home Medications: Ambulatory Orders Medication Instructions Recorded Albuterol Inhaler [Ventolin Hfa] 2 puff INHALATION Q4H PRN PRN 02/15/19 Fluticasone 44 Mcg [Flovent 44 Mcg] 2 puff IH BID 11/12/19 Omeprazole [Prilosec] 20 mg PO DAILY 12/09/20 Acetaminophen Liquid [Tylenol 650 mg PO Q6H PRN PRN udc 12/28/20 Liquid] Amox/Clavulanate Tablet [Augmentin 875 mg PO BID tab 12/28/20 Tablet] Doxycycline 100 mg PO BID cap 12/28/20 Insulin Glargine [Lantus SoloStar 35 units SC BID pen 12/28/20 Pen] Insulin Lispro [Humalog KwikPen] 10 unit SC TIDAC insuln.pen 12/28/20 Insulin Lispro [Humalog KwikPen] See Protocol SC ACHS insuln.pen 12/28/20 Polyethylene Glycol 3350 [Miralax] 17 gm PO DAILY packet 12/28/20 Potassium Chloride Oral Tablet 20 meq PO DAILY #0 12/28/20 [K-Dur] - Family History Maternal Family History: Family History (Last Reviewed 10/27/20 @ 11:[address] Will Mason MD) Other Asthma CVA (cerebral vascular accident) Diabetes Hypertension Thyroid disorder - - Patient with no market maternal or paternal family history including heart disease, diabetes, cancer. Paternal Family History: Family History (Last Reviewed 10/27/20 @ 11:[address] Will Mason MD) Other Asthma CVA (cerebral vascular accident) Diabetes Hypertension Thyroid disorder - - Patient with no market maternal or paternal family history including heart disease, diabetes, cancer. Smoking Status: Never smoker - Physical Exam Vital Signs Temp Pulse Resp BP 98.1 F 110 H 20 H 122/85 H 01/10/21 09:30 01/10/21 09:30 01/10/21 09:30 01/10/21 09:30 Wound Measurements and Assessment - Nurse 1 - General Ulcer Measurement Start: 01/10/21 09:29 Freq: Status: Active Protocol: Activity Type Activity Date Activity User E-Sign Co-Sign Detail Recorded Client Recorded Date Recorded By Document 01/10/21 09:30 KRISTEN [id number] 01/10/21 09:42 DL 01/10/21 09:30 Wound Center Nurse 1 [Ulcer Assessment] 1 left post thigh -Current Size (cm) - Length 21.3 -Current Size (cm) - Width 8.4 -Current Size (cm) - Depth 1.5 -Total Square Cm 178.92 -Photo Taken Yes -Exudate Amt Medium -Exudate Type Serosanguineous -Wound Margin Distinct, Outline Attached -Granulation Amt Large (67-100%) -Granulation Quality Red -Necrosis Amt Small (1-33%) -Necrotic Tissue Type Adherent Slough -Structure Exposed N/A -Texture (Summer-wound Skin Appearance) Scarring -Moisture (Summer-wound Skin Appearance No Abnormality ) -Color (Summer-wound Skin Appearance) No Abnormality -Ulcer Cleansing Wound Cleanser -Foul Odor after Cleansing No -Anesthetic Used 4% Lidocaine Solution - Nurse 2 - General Ulcer CM Notes Start: 01/10/21 09:29 Freq: Status: Active Protocol: Activity Type Activity Date Activity User E-Sign Co-Sign Detail Recorded Client Recorded Date Recorded By Document 01/10/21 09:58 ROSE [id number] 01/10/21 10:03 ROSE 01/10/21 09:58 Wound Center Nurse 2 [Procedure/Treatment] -Time 09:58 -Correct Patient Yes -Correct Side, Site, Position Yes -Correct Procedure Yes -Procedure Performed Yes -Type of Procedure Debridement -Clinical Debridement Subcutaneous -Tissue Removed Subcutaneous -Post Debridement (cm) - Length 22.5 -Post Debridement (cm) - Width 8.6 -Post Debridement (cm) - Depth 1.0 -Total Square (Post) (cm) 193.50 -Area of Debridement (cm) - Length 22.5 -Area of Debridement (cm) - Width 8.6 -Total Square (Area) (cm) 193.50 -Tunneling No -Undermining/Tunneling No -Circular Undermining No -Wound/Ulcer Outcome Not Healed -Ulcer Cleansing Rinsed/ Irrigated with Saline -Foul Odor after Cleansing No -Bioengineered Tissue No -Bleeding Controlled with Pressure -Offloading No -Treatment Response Procedure Tolerated Well -Debridement - Subq, 1st 20sq cm Yes -Debridement, SubQ, ea addt'l 20sq cm 9 or part thereof [See Physician Procedure note for Specifics] Pain Scale: 0-10 Numeric [Pain] -Is Patient Pain Free? 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 -Primary Dressing Covered/Secured Dry Gauze, with Secured with Tape,Other -Other Covering abd [Post Procedure Tolerated] -Treatment Response Procedure Tolerated Well - Visit Discharge [Visit Discharge Information] -Discharge Condition Stable -Ambulatory Status Wheelchair -Transportation transport [Facility Notification] -Facility Type [facility] Debridement Note Post-Debridement Measurements/Treatment - Nurse 2 - General Ulcer CM Notes Start: 01/10/21 09:29 Freq: Status: Active Protocol: Activity Type Activity Date Activity User E-Sign Co-Sign Detail Recorded Client Recorded Date Recorded By Document 01/10/21 09:58 [id number] 01/10/21 10:03 01/10/21 09:58 Wound Center Nurse 2 1 left post thigh -Time 09:58 -Correct Patient Yes -Correct Side, Site, Position Yes -Correct Procedure Yes -Procedure Performed Yes -Type of Procedure Debridement -Clinical Debridement Subcutaneous -Tissue Removed Subcutaneous -Post Debridement (cm) - Length 22.5 -Post Debridement (cm) - Width 8.6 -Post Debridement (cm) - Depth 1.0 -Total Square (Post) (cm) 193.50 -Area of Debridement (cm) - Length 22.5 -Area of Debridement (cm) - Width 8.6 -Total Square (Area) (cm) 193.50 -Tunneling No -Undermining/Tunneling No -Circular Undermining No -Wound/Ulcer Outcome Not Healed -Ulcer Cleansing Rinsed/ Irrigated with Saline -Foul Odor after Cleansing No -Bioengineered Tissue No -Bleeding Controlled with Pressure -Offloading No -Treatment Response Procedure Tolerated Well -Debridement - Subq, 1st 20sq cm Yes -Debridement, SubQ, ea addt'l 20sq cm 9 or part thereof Pain Scale: 0-10 Numeric Is Patient Pain Free? Yes - Nurse 3 - General Ulcer D/C NN Start: 01/10/21 09:29 Freq: Status: Active Protocol: Activity Type Activity Date Activity User E-Sign Co-Sign Detail Recorded Client Recorded Date Recorded By Document 01/10/21 10:11 [facility] [id number] 01/10/21 10:12 [facility] 01/10/21 10:11 Wound Care Nurse 3 1 left post thigh -Ulcer Cleansing Rinsed/ Irrigated with Saline -Foul Odor after Cleansing No -Primary Dressing Applied Other -Other Dressing moist to dry per d pawan calculating machine operator -Primary Dressing Covered/Secured with Dry Gauze, Secured with Tape,Other -Other Covering abd Treatment Response Procedure Tolerated Well WC - Visit Discharge Discharge Condition Stable Ambulatory Status Wheelchair Transportation transport Facility Type [facility] Care Facility Assessment/Plan Assessment: Nonhealing postsurgical wound status post incision and drainage of abscess to left posterior thigh on 12/10/2020. Uncontrolled type 1 diabetes Plan: The patient was seen and examined at the wound center today and was updated on the plan of care. A subcutaneous and muscular debridement was performed today. The patient tolerated the procedure well. The patients wound care will consist of: Application of wound VAC at 150 mmHg black foam change 3 times a week with home health care. Wound cultures were collected. Baseline bloodwork from recent hospital stay reviewed and showed A1c of greater than 16. Patient was educated in detail on the importance of needing better control of his type 1 diabetes and to remain compliant with his insulin regimen and follow- up with his reel repairer. Patient was also advised on protein supplementation and vitamin C supplementation to promote wound healing. Patient verbalized understanding. Patient will follow up at wound healing center in one week or sooner if needed. Given the delayed wound healing, will apply for advanced skin substitute. This note was generated with [employer] dictation software. It may contain incorrect words, spelling, and punctuation that were not noted in checking the note before signing. 45 minutes was spent today going over patient's physical exam, prior records, lab work, and educating the patient and family on plan of care.
[2021-01-20 11:44] VITALS: BP 133/86; PULSE 95; RESP 18; TEMP 36.6
[2021-01-31 14:55] VITALS: BP 119/73; PULSE 92; RESP 16; TEMP 37
--- NOTE | 2021-01-31 15:43 | PN.PCM_ITS ---
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 Laura on 12/10/2020 History of Wound: Surgery 12/24/20 - Surgical preparation left posterior thigh with incision and drainage and excisional debridement nonhealing infected necrotic diabetic ulcer with abscess including necrotic muscle (276 cm2). Wound care - Wound VAC at 150 mmHg to be changed twice a week at the wound center due to him not having any home health. Surgical wound cultures positive for Rhizopus species, Klebsiella pneumoniae, and Anaerobic cocci. ID was consulted and he was on Doxycycline and Unasyn while hospitalized and was discharged on Augmentin and Doxycycline for an additional 5 days. Prealbumin on 12/27/20 was 10.1. Encouraged protein supplementation to help with wound healing. When he was discharged, on 12/28/20, he went to [facility]. He was readmitted to the hospital on 01/24/2021 and discharged on 01/27/2021 for DKA. We will order a dietary consult. Today he denies fever. He states his appetite is good. Patient presents for delayed wound healing of surgical I&D of an abscess on 12/10/20 to his left thigh. Patient was originally seen in the ER 4 days prior to his hospital admission for a draining wound to his left thigh. He was sent home on Keflex and Bactrim, no cultures were obtained at that ER visit. His PCP saw him later and felt his wound was not healing, looking worse and sent him back to the ER. At that time his blood sugars were over 600 and he was admitted for DKA, RADHA and sepsis. During his admission he was placed on an insulin drip, given IV fluids and wound cultures were obtained. His wound cultures grew Klebsiella, Enterobacter and Staphylococcus. He was then switched to oral Levaquin for 7 days which he has completed. During his hospital visit his A1c was greater than 16.0 and his home insulin was adjusted. He was discharged on 12-13-20 with home health care for wound VAC changes 3x/week. His wound has not improved over the last 10 days with the wound VAC and home health care and was sent to the wound healing center by his surgeon Dr. Laura. He denies any systemic or any localized signs of infection at this time. He does state that the site is still painful. He does note that with regard to his uncontrolled type 1 diabetes, but he is following up with endocrinology and that his typical fasting blood glucoses range between 150 and 200. Progress of Wound: Left thigh wound is stable. - Physical Exam Vital Signs Temp Pulse Resp BP 98.6 F 92 16 119/73 01/31/21 14:55 01/31/21 14:55 01/31/21 14:55 01/31/21 14:55 General: Alert, Oriented x3, Cooperative HEENT: Atraumatic, Normocephalic Oral: Moist Mucosa Lungs: Normal air movement Cardiovascular: Regular rate Extremities: Capillary Refill Less than 3 Seconds Skin: Ulcer/ Wound - Left posterior thigh ulcer is beefy pink in color. It has decreased in size. Wound Measurements and Assessment WC - Nurse 1 - General Ulcer Measurement Start: 01/10/21 09:29 Freq: Status: Active Protocol: Activity Type Activity Date Activity User E-Sign Co-Sign Detail Recorded Client Recorded Date Recorded By Document 01/31/21 14:55 [facility] [id number] 01/31/21 15:04 [facility] 01/31/21 14:55 Wound Center Nurse 1 [Ulcer Assessment] 1 left post thigh -Combined with other wound No -Current Size (cm) - Length 18.9 -Current Size (cm) - Width 6.8 -Current Size (cm) - Depth 0.1 -Total Square Cm 128.52 -Photo Taken No -Epithelialization Small 1-33% -Tunneling No -Undermining/Tunneling No -Circular Undermining No -Exudate Amt Large -Exudate Type Serosanguineous -Wound Margin Distinct, Outline Attached -Granulation Amt Large (67-100%) -Granulation Quality Red -Slough/Fibrin No -Necrosis Amt None Present (0 %) -Texture (Summer-wound Skin Appearance) Assessed, Scarring -Moisture (Summer-wound Skin Appearance Assessed ) -Color (Summer-wound Skin Appearance) Assessed -Temperature (Summer-wound Skin No Abnormality Appearance) (Pt Warm) -Tenderness on Palpation (Summer-wound Yes Skin Appearance) -Ulcer Cleansing soapy water -Foul Odor after Cleansing No -Anesthetic Used 4% Lidocaine Solution POWER - Nurse 2 - General Ulcer CM Notes Start: 01/10/21 09:29 Freq: Status: Active Protocol: Activity Type Activity Date Activity User E-Sign Co-Sign Detail Recorded Client Recorded Date Recorded By Document 01/31/21 15:29 [id number] 01/31/21 15:30 01/31/21 15:29 Wound Center Nurse 2 [Procedure/Treatment] -Time 15:29 -Correct Patient Yes -Correct Side, Site, Position Yes -Correct Procedure Yes -Procedure Performed Yes -Type of Procedure Debridement -Clinical Debridement Subcutaneous -Tissue Removed Subcutaneous -Post Debridement (cm) - Length 19.0 -Post Debridement (cm) - Width 6.5 -Post Debridement (cm) - Depth 0.4 -Total Square (Post) (cm) 123.50 -Area of Debridement (cm) - Length 19.0 -Area of Debridement (cm) - Width 6.5 -Total Square (Area) (cm) 123.50 -Tunneling No -Undermining/Tunneling No -Circular Undermining No -Wound/Ulcer Outcome Not Healed -Ulcer Cleansing Rinsed/ Irrigated with Saline -Foul Odor after Cleansing No -Bioengineered Tissue No -Bleeding Controlled with Pressure -Offloading No -Debridement - Subq, 1st 20sq cm Yes -Debridement, SubQ, ea addt'l 20sq cm 6 or part thereof [See Physician Procedure note for Specifics] Pain Scale: 0-10 Numeric [Pain] -Is Patient Pain Free? Yes POWER - Nurse 3 - General Ulcer D/C NN Start: 01/10/21 09:29 Freq: Status: Active Protocol: Activity Type Activity Date Activity User E-Sign Co-Sign Detail Recorded Client Recorded Date Recorded By Document 01/31/21 15:39 [facility] [id number] 01/31/21 15:40 [facility] 01/31/21 15:39 Wound Care Nurse 3 [Wound Dressing] 1 left post thigh -Ulcer Cleansing Rinsed/ Irrigated with Saline -Foul Odor after Cleansing No -Primary Dressing Applied Aquacel AG 4x4 -Primary Dressing Covered/Secured Secured with with Tape,Other -Other Covering abd -Aquacel AG 4x4 1 [Post Procedure Tolerated] -Treatment Response Procedure Tolerated Well Pain Scale: 0-10 Numeric [Pain] -Is Patient Pain Free? Yes - Visit Discharge [Visit Discharge Information] -Discharge Condition Stable -Ambulatory Status Ambulatory,Cane -Transportation Private Auto -Accompanied by grandma Musculoskeletal: No Tenderness to Palpation of Joints or Extremities Neurological: Cranial nerves II-XII grossly intact Psych/Mental Status: Normal Affect, Appropriate Debridement Note Post-Debridement Measurements/Treatment - Nurse 2 - General Ulcer CM Notes Start: 01/10/21 09:29 Freq: Status: Active Protocol: Activity Type Activity Date Activity User E-Sign Co-Sign Detail Recorded Client Recorded Date Recorded By Document 01/10/21 09:58 [id number] 01/10/21 10:03 Document 01/31/21 15:29 [id number] 01/31/21 15:30 01/10/21 01/31/21 09:58 15:29 Wound Center Nurse 2 1 left post thigh -Time 09:58 15:29 -Correct Patient Yes Yes -Correct Side, Site, Position Yes Yes -Correct Procedure Yes Yes -Procedure Performed Yes Yes -Type of Procedure Debridement Debridement -Clinical Debridement Subcutaneous Subcutaneous -Tissue Removed Subcutaneous Subcutaneous -Post Debridement (cm) - Length 22.5 19.0 -Post Debridement (cm) - Width 8.6 6.5 -Post Debridement (cm) - Depth 1.0 0.4 -Total Square (Post) (cm) 193.50 123.50 -Area of Debridement (cm) - Length 22.5 19.0 -Area of Debridement (cm) - Width 8.6 6.5 -Total Square (Area) (cm) 193.50 123.50 -Tunneling No No -Undermining/Tunneling No No -Circular Undermining No No -Wound/Ulcer Outcome Not Healed Not Healed -Ulcer Cleansing Rinsed/ Rinsed/ Irrigated with Irrigated with Saline Saline -Foul Odor after Cleansing No No -Bioengineered Tissue No No -Bleeding Controlled with Pressure Pressure -Offloading No No -Treatment Response Procedure Tolerated Well -Debridement - Subq, 1st 20sq cm Yes Yes -Debridement, SubQ, ea addt'l 20sq cm 9 6 or part thereof Pain Scale: 0-10 Numeric Is Patient Pain Free? Yes Yes - Nurse 3 - General Ulcer D/C NN Start: 01/10/21 09:29 Freq: Status: Active Protocol: Activity Type Activity Date Activity User E-Sign Co-Sign Detail Recorded Client Recorded Date Recorded By Document 01/10/21 10:11 [facility] [id number] 01/10/21 10:12 BM Document 01/20/21 11:[address] [id number] 01/20/21 11:46 PL Document 01/31/21 15:39 [facility] [id number] 01/31/21 15:40 [facility] 01/10/21 01/20/21 01/31/21 10:11 11:44 15:39 Wound Care Nurse 3 1 left post thigh -Ulcer Cleansing Rinsed/ Soap and Water Rinsed/ Irrigated with Irrigated with Saline Saline -Foul Odor after Cleansing No No No -Negative Pressure Wound Therapy Continue -Setting (mmHg) 150 -Negative Pressure is Continuous -Primary Dressing Applied Other Aquacel AG 4x4 -Other Dressing moist to dry per d pawan track layer -Primary Dressing Covered/Secured with Dry Gauze, Secured with Secured with Tape,Other Tape,Other -Other Covering abd abd -NPWT Application Charge ($) NPWT > 50 sq cm -Aquacel AG 4x4 1 Treatment Response Procedure Procedure Tolerated Well Tolerated Well Vital Signs Temperature (97.8 F-99.1 F) 97.8 F Temperature Source Temporal Pulse Rate (60-100) 95 Respiratory Rate (12-18) 18 Blood Pressure (90/60-120/80) 133/86 H Blood Pressure Mean (mm Hg) 101 Pain Scale: 0-10 Numeric Is Patient Pain Free? Yes Yes - Visit Discharge Discharge Condition Stable Stable Ambulatory Status Wheelchair Ambulatory,Cane Transportation transport Private Auto Accompanied by [facility] Wound debrided: Posterior thigh ulcer Laterality: Left Type of Debridement: Excisional debridement Anesthesia Used: 5% Lidocaine Gel Depth: Down to and including healthy tissue, in the subcutaneous layer Percentage of wound debrided: 100 Instrument Used: 7mm curette Tissue Removed: Subcutaneous tissue and slough Severity: Fat Layer Exposed Amount of bleeding with debridement: Mild Bleeding Controlled with: Pressure Patient tolerated procedure well Assessment/Plan Active Problems (Last Updated 01/24/21 @ 15:[address] 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 Nonhealing infected necrotic diabetic ulcer with abscess left posterior thigh. 2. DKA. 3. Sepsis. 4. Type I Diabetes mellitus, uncontrolled. 5. HgbA1c >14. Plan: Wound care?wound VAC 150 mmHg. Dressing to be changed 3 times a week at the wound center. Today he does not have a canister for his wound VAC, they will order new canisters for him. He will do daily [facility] dressing changes until they receive wound VAC supplies. Today we will place silver on the ulcer since we do not have [facility] in the office. They will call when they receive their wound VAC supplies and they will make an appointment to come into the wound center at that time to get the wound VAC in place. He no longer has home health will go into his home due to his living conditions since he was discharged from [facility]. He was just recently admitted on 01/24/2021- 01/12/21 for DKA. I ordered a dietary consult to help him with food choices. He has not eaten today at 2:30 in the afternoon. Commented that he was eating a pop tart yesterday. Surgical wound cultures positive for Rhizopus species, Klebsiella pneumoniae, and Anaerobic cocci. ID was consulted and he was on Doxycycline and Unasyn while hospitalized and was discharged on Augmentin and Doxycycline for an additional 5 days, which he has completed. Follow-up in 2 weeks. [id number]: [id number] Global Visit
[2021-02-03 12:00] VITALS: BP 125/85; PULSE 100; RESP 18; TEMP 36.6
[2021-02-07 14:12] VITALS: BP 122/83; PULSE 118; RESP 20; TEMP 36.6
--- NOTE | 2021-02-07 15:37 | PCM.WC.PN ---
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 Laura on 12/10/2020 History of Wound: Surgery 12/24/20 - Surgical preparation left posterior thigh with incision and drainage and excisional debridement nonhealing infected necrotic diabetic ulcer with abscess including necrotic muscle (276 cm2). Wound care - Wound VAC at 150 mmHg to be changed twice a week at the wound center due to him not having any home health. I believe he is a candidate for an advanced skin product. We we will seek approval from his insurance to be able to apply TheraSkin. Surgical wound cultures positive for Rhizopus species, Klebsiella pneumoniae, and Anaerobic cocci. ID was consulted and he was on Doxycycline and Unasyn while hospitalized and was discharged on Augmentin and Doxycycline for an additional 5 days. Prealbumin on 12/27/20 was 10.1. Encouraged protein supplementation to help with wound healing. When he was discharged, on 12/28/20, he went to [facility]. He was readmitted to the hospital on 01/24/2021 and discharged on 01/27/2021 for DKA. We will order a dietary consult. Today he denies fever. He states his appetite is good. Progress of Wound: Left thigh wound is stable. - Physical Exam Vital Signs Temp Pulse Resp BP 98 F 118 H 20 H 122/83 H 02/07/21 14:12 02/07/21 14:12 02/07/21 14:12 02/07/21 14:12 General: Alert, Oriented x3 HEENT: Atraumatic Oral: Moist Mucosa Lungs: Normal air movement Cardiovascular: Regular rate Extremities: No edema, Capillary Refill Less than 3 Seconds Skin: Ulcer/ Wound - Left posterior lateral thigh ulcer is beefy pink in color. It is decreasing in depth. Wound Measurements and Assessment WC - Nurse 1 - General Ulcer Measurement Start: 01/10/21 09:29 Freq: Status: Active Protocol: Activity Type Activity Date Activity User E-Sign Co-Sign Detail Recorded Client Recorded Date Recorded By Document 02/07/21 14:12 DL [id number] 02/07/21 14:20 DL 02/07/21 14:12 Wound Center Nurse 1 [Ulcer Assessment] 1 left post thigh -Combined with other wound No -Current Size (cm) - Length 17 -Current Size (cm) - Width 4.7 -Current Size (cm) - Depth 0.1 -Total Square Cm 79.9 -Photo Taken No -Epithelialization Small 1-33% -Tunneling No -Undermining/Tunneling No -Circular Undermining No -Exudate Amt Medium -Exudate Type Serosanguineous -Wound Margin Distinct, Outline Attached -Granulation Amt Large (67-100%) -Granulation Quality Red -Slough/Fibrin Yes -Necrosis Amt Small (1-33%) -Necrotic Tissue Type Adherent Slough -Texture (Summer-wound Skin Appearance) Assessed, Scarring -Moisture (Summer-wound Skin Appearance Assessed ) -Color (Summer-wound Skin Appearance) Assessed -Temperature (Summer-wound Skin No Abnormality Appearance) (Pt Warm) -Tenderness on Palpation (Summer-wound Yes Skin Appearance) -Ulcer Cleansing soapy water -Foul Odor after Cleansing No -Anesthetic Used 4% Lidocaine Solution WC - Nurse 2 - General Ulcer CM Notes Start: 01/10/21 09:29 Freq: Status: Active Protocol: Activity Type Activity Date Activity User E-Sign Co-Sign Detail Recorded Client Recorded Date Recorded By Document 02/07/21 14:37 RSOE [id number] 02/07/21 14:41 ROSE 02/07/21 14:37 Wound Center Nurse 2 [Procedure/Treatment] -Time 14:39 -Correct Patient Yes -Correct Side, Site, Position Yes -Correct Procedure Yes -Procedure Performed Yes -Type of Procedure Debridement -Clinical Debridement Subcutaneous -Tissue Removed Subcutaneous -Post Debridement (cm) - Length 17.5 -Post Debridement (cm) - Width 5 -Post Debridement (cm) - Depth 0.2 -Total Square (Post) (cm) 87.5 -Area of Debridement (cm) - Length 17.5 -Area of Debridement (cm) - Width 5 -Total Square (Area) (cm) 87.5 -Tunneling No -Undermining/Tunneling No -Circular Undermining No -Wound/Ulcer Outcome Not Healed -Ulcer Cleansing Rinsed/ Irrigated with Saline -Foul Odor after Cleansing No -Bioengineered Tissue No -Bleeding Controlled with Pressure -Offloading No -Treatment Response Procedure Tolerated Well -Debridement - Subq, 1st 20sq cm Yes -Debridement, SubQ, ea addt'l 20sq cm 4 or part thereof [See Physician Procedure note for Specifics] Pain Scale: 0-10 Numeric [Pain] -Is Patient Pain Free? Yes - Nurse 3 - General Ulcer D/C NN Start: 01/10/21 09:29 Freq: Status: Active Protocol: Activity Type Activity Date Activity User E-Sign Co-Sign Detail Recorded Client Recorded Date Recorded By Document 02/07/21 15:00 DL [id number] 02/07/21 15:01 DL 02/07/21 15:00 Wound Care Nurse 3 [Wound Dressing] 1 left post thigh -Ulcer Cleansing Rinsed/ Irrigated with Saline -Foul Odor after Cleansing No -Negative Pressure Wound Therapy Continue -Setting (mmHg) 150 -Negative Pressure is Continuous -NPWT Application Charge ($) NPWT </= 50 sq cm [Post Procedure Tolerated] -Treatment Response Procedure Tolerated Well Pain Scale: 0-10 Numeric [Pain] -Is Patient Pain Free? Yes - Visit Discharge [Visit Discharge Information] -Discharge Condition Stable -Ambulatory Status Ambulatory -Transportation Private Auto Musculoskeletal: No Tenderness to Palpation of Joints or Extremities Neurological: Cranial nerves II-XII grossly intact Psych/Mental Status: Normal Affect, Appropriate Debridement Note Post-Debridement Measurements/Treatment - Nurse 2 - General Ulcer CM Notes Start: 01/10/21 09:29 Freq: Status: Active Protocol: Activity Type Activity Date Activity User E-Sign Co-Sign Detail Recorded Client Recorded Date Recorded By Document 01/10/21 09:58 [id number] 01/10/21 10:03 Document 01/31/21 15:29 [id number] 01/31/21 15:30 Document 02/07/21 14:37 [id number] 02/07/21 14:41 01/10/21 01/31/21 02/07/21 09:58 15:29 14:37 Wound Center Nurse 2 1 left post thigh -Time 09:58 15:29 14:39 -Correct Patient Yes Yes Yes -Correct Side, Site, Position Yes Yes Yes -Correct Procedure Yes Yes Yes -Procedure Performed Yes Yes Yes -Type of Procedure Debridement Debridement Debridement -Clinical Debridement Subcutaneous Subcutaneous Subcutaneous -Tissue Removed Subcutaneous Subcutaneous Subcutaneous -Post Debridement (cm) - Length 22.5 19.0 17.5 -Post Debridement (cm) - Width 8.6 6.5 5 -Post Debridement (cm) - Depth 1.0 0.4 0.2 -Total Square (Post) (cm) 193.50 123.50 87.5 -Area of Debridement (cm) - Length 22.5 19.0 17.5 -Area of Debridement (cm) - Width 8.6 6.5 5 -Total Square (Area) (cm) 193.50 123.50 87.5 -Tunneling No No No -Undermining/Tunneling No No No -Circular Undermining No No No -Wound/Ulcer Outcome Not Healed Not Healed Not Healed -Ulcer Cleansing Rinsed/ Rinsed/ Rinsed/ Irrigated with Irrigated with Irrigated with Saline Saline Saline -Foul Odor after Cleansing No No No -Bioengineered Tissue No No No -Bleeding Controlled with Pressure Pressure Pressure -Offloading No No No -Treatment Response Procedure Procedure Tolerated Well Tolerated Well -Debridement - Subq, 1st 20sq cm Yes Yes Yes -Debridement, SubQ, ea addt'l 20sq cm 9 6 4 or part thereof Pain Scale: 0-10 Numeric Is Patient Pain Free? Yes Yes Yes WC - Nurse 3 - General Ulcer D/C NN Start: 01/10/21 09:29 Freq: Status: Active Protocol: Activity Type Activity Date Activity User E-Sign Co-Sign Detail Recorded Client Recorded Date Recorded By Document 01/10/21 10:11 [facility] [id number] 01/10/21 10:12 BM Document 01/20/21 11:44 PL [id number] 01/20/21 11:46 PL Document 01/31/21 15:39 BMF [id number] 01/31/21 15:40 BMF Document 02/03/21 12:00 PL [id number] 02/03/21 12:03 PL Document 02/07/21 15:00 DL [id number] 02/07/21 15:01 DL 01/10/21 01/20/21 01/31/21 10:11 11:44 15:39 Wound Care Nurse 3 1 left post thigh -Ulcer Cleansing Rinsed/ Soap and Water Rinsed/ Irrigated with Irrigated with Saline Saline -Foul Odor after Cleansing No No No -Negative Pressure Wound Therapy Continue -Setting (mmHg) 150 -Negative Pressure is Continuous -Primary Dressing Applied Other Aquacel AG 4x4 -Other Dressing moist to dry per d pawan snuff blender -Primary Dressing Covered/Secured with Dry Gauze, Secured with Secured with Tape,Other Tape,Other -Other Covering abd abd -NPWT Application Charge ($) NPWT > 50 sq cm -Aquacel AG 4x4 1 Treatment Response Procedure Procedure Tolerated Well Tolerated Well Vital Signs Temperature (97.8 F-99.1 F) 97.8 F Temperature Source Temporal Pulse Rate (60-100) 95 Respiratory Rate (12-18) 18 Blood Pressure (90/60-120/80) 133/86 H Blood Pressure Mean (mm Hg) 101 Pain Scale: 0-10 Numeric Is Patient Pain Free? Yes Yes WC - Visit Discharge Discharge Condition Stable Stable Ambulatory Status Wheelchair Ambulatory,Cane Transportation transport Private Auto Accompanied by [facility] Type [facility] Care Facility 02/03/21 02/07/21 12:00 15:00 Wound Care Nurse 3 1 left post thigh -Ulcer Cleansing Rinsed/ Rinsed/ Irrigated with Irrigated with Saline Saline -Foul Odor after Cleansing No No -Negative Pressure Wound Therapy Continue Continue -Setting (mmHg) 150 150 -Negative Pressure is Continuous Continuous -Primary Dressing Applied -Other Dressing -Primary Dressing Covered/Secured with -Other Covering -NPWT Application Charge ($) NPWT > 50 sq cm NPWT </= 50 sq cm -Aquacel AG 4x4 Treatment Response Procedure Tolerated Well Vital Signs Temperature (97.8 F-99.1 F) 97.8 F Temperature Source Temporal Pulse Rate (60-100) 100 Respiratory Rate (12-18) 18 Blood Pressure (90/60-120/80) 125/85 H Blood Pressure Mean (mm Hg) 98 Pain Scale: 0-10 Numeric Is Patient Pain Free? Yes Yes WC - Visit Discharge Discharge Condition Stable Stable Ambulatory Status Cane Ambulatory Transportation Private Auto Private Auto Accompanied by Facility Type Wound debrided: Posterior lateral thigh ulcer Laterality: Left Type of Debridement: Excisional debridement Anesthesia Used: 5% Lidocaine Gel Depth: Down to and including healthy tissue, in the subcutaneous layer Percentage of wound debrided: 100 Instrument Used: 7mm curette Tissue Removed: Subcutaneous tissue and slough Severity: Fat Layer Exposed Amount of bleeding with debridement: Mild Bleeding Controlled with: Pressure, Compression and gauze Patient tolerated procedure well Assessment/Plan Active Problems (Last Updated 01/24/21 @ 15:[address] 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 Nonhealing infected necrotic diabetic ulcer with abscess left posterior thigh. 2. DKA. 3. Sepsis. 4. Type I Diabetes mellitus, uncontrolled. 5. HgbA1c >14. Plan: Wound care?wound VAC 150 mmHg. Dressing to be changed times a week at the wound center. He is a candidate for advanced wound healing product. We will apply to his insurance for approval to place TheraSkin. If he would get approved, I would probably keep the wound VAC in place and decrease the suction. He no longer has home health will go into his home due to his living conditions since he was discharged from [facility]. He was just recently admitted on 01/24/2021- 01/12/21 for DKA. I ordered a dietary consult to help him with food choices. He states he has not heard from the dietitian. We gave him the number for him to call. Also reinforced this with his grandmother. Surgical wound cultures positive for Rhizopus species, Klebsiella pneumoniae, and Anaerobic cocci. ID was consulted and he was on Doxycycline and Unasyn while hospitalized and was discharged on Augmentin and Doxycycline for an additional 5 days, which he has completed. Follow-up in 1 week. [id number]: [id number] Global Visit
== END 2021-02-09 23:59 ==
LOC: WC 14:00
PROVIDERS: PCP Pediatrics; Referring Provider Surgery; Visit Provider Nurse Practitioner Family
DX: E10.622 Type 1 diabetes mellitus with other skin ulcer (principal); T81.89XA Other complications of procedures, not elsewhere classified, initial encounter; L02.416 Cutaneous abscess of left lower limb; Y83.8 Other surgical procedures as the cause of abnormal reaction of the patient, or of later complication, without mention of misadventure at the time of the procedure; E10.65 Type 1 diabetes mellitus with hyperglycemia; Z91.19 Patient's noncompliance with other medical treatment and regimen; L97.123 Non-pressure chronic ulcer of left thigh with necrosis of muscle
CPT/HCPCS: 11042; 11045; 97605; 97606; 99212; 99213; G0463

== ENCOUNTER 2021-02-18 18:08 | Emergency (ER) | payer MEDICAID, SELFPAY ==
[2021-02-14 14:17] VITALS: BMI 21.4
[2021-02-18 18:10] VITALS: BP 134/115; PULSE 134; RESP 18; TEMP 36.8; O2SAT 99; BMI 18.6
[2021-02-18 18:12] VITALS: BP 134/115; PULSE 134; RESP 18; TEMP 36.8; O2SAT 99
[2021-02-18 19:36] LABS: Absolute Lymphocyte Count 2.13 X10^3/uL (0.83-4.51); Absolute Neutrophil Count 3.4 X10^3/uL (2.0-7.7); Basophil# 0.05 X10^3/uL; Basophil% 0.8 % (0-1); Eosinophil# 0.08 X10^3/uL; Eosinophils% 1.3 % (0-5); Hematocrit 40.6 % (40-54); Hemoglobin 15.2 g/dL (13.0-16.5); Lymphocyte # 2.13 X10^3/ul (4.0); Lymphocyte % 34.3 % (19-41); Mean Corp Hgb Conc 37.4 g/dL (32-36); Mean Corpuscular Hgb 29.1 pg (27.0-32.0); Mean Corpuscular Volume 77.8 fL (80-94); Mean Platelet Vol. 9.1 fl (6.2-12.0); Monocyte# 0.55 X10^3/uL; Monocyte% 8.9 % (0-10); NRBC Flagged by Analyzer 0 % (0-5); Neutrophil # 3.38 X10^3/uL (2.7-7.7); Neutrophil % 54.4 % (47-70); Platelet Count 399 K/mm3 (150-450); RBC Distribution Width CV 13.1 % (11.6-14.6); RBC Distribution Width SD 37.1 fl (35.1-43.9); Red Blood Count 5.22 M/mm3 (4.6-6.2); White Blood Count 6.2 K/mm3 (4.4-11.0)
[2021-02-18 19:56] LABS: ALB/GLOB Ratio 1.4 RATIO (0.9-2.4); AST(SGOT) 5 U/L (15-37); Alanine Aminotransfer ALT/SGPT 17 U/L (16-61); Albumin, Serum 4.3 g/dL (3.2-5.0); Alkaline Phosphatase 74 U/L (45-117); Anion Gap 12 (5-15); BUN 7 mg/dL (7-18); BUN/Creat Ratio 6.6 RATIO (10-20); Calcium,Total 9.4 mg/dL (8.5-10.1); Chloride 96 mmol/L (98-107); Creatinine, Serum 1.06 mg/dL (0.70-1.30); EST Glomerular Filtration Rate 95 mL/min (>60); Est Glom Filt Rate - Afr Amer 114 mL/min (>60); Estimated Creatinine Clearance 100.56 ml/min; Glucose 242 mg/dL (74-106); Potassium 2.9 mmol/L (3.5-5.1); Protein, Total 7.3 g/dL (6.4-8.2); Sodium Level 133 mmol/L (136-145)
[2021-02-18 20:15] LABS: Bacteria 0 SEEN /hpf (None Seen); Mucous, Urine 0 SEEN /hpf (<or=2+); Red Blood Cells-Urine 0 SEEN /hpf (0-5); Squamous Epithelial Cells - UA 0 SEEN /hpf (0-5)
[2021-02-18 20:17] LABS: Color, Urine Straw (Yellow); Glucose, Dipstick 1000 mg/dl (Normal); Leukocyte Esterase-Dipstick Negative /ul (Negative); Nitrite-Dipstick Negative (Negative); Occult Blood-Urine Negative /ul (Negative); Protein-Dipstick Negative (Negative); Specific Gravity, Urine 1.015 (1.002-1.030); Urine Bilirubin Dipstick Negative (Negative); Urine Clarity Clear (Clear); Urine Urobilinogen Normal (Normal)
[2021-02-18 20:19] LABS: Ketone-Dipstick 150 mg/dl (Negative)
[2021-02-18 20:20] VITALS: BP 113/64; PULSE 124; RESP 16; TEMP 36.8; O2SAT 98
[2021-02-18 20:26] LABS: White Blood Cells 0-5 SEEN /hpf (0-5)
--- NOTE | 2021-02-18 21:43 | ED.VISSUMM ---
- ER Visit Summary Date of Service: 02/18/21 Chief Complaint: Possible wound infection History of Present Illness: The patient is a 20 M who presents with possible wound infection to his left thigh that is been getting worse over the past 4 days. Patient has noted some yellow drainage from his wound. Patient sees the wound care center for this. Patient has a wound VAC in place. Patient states that today he noticed that the drainage became worse and is more foul-smelling. Patient states the drainage is yellow. Patient denies any fevers or chills. Patient is diabetic. Patient is concerned over possible infection. Physical Examination: Vital signs are stable except for mild tachycardia of 134. Patient is afebrile. Patient is in no acute distress. Oral mucosa is pink and moist. Neck is supple. Trachea is midline. There is no JVD. Heart was regular rate and rhythm. Lungs are clear and equal bilaterally. Abdomen is soft. Bowel sounds are normal. There is no tenderness. Cranial nerves II through XII are intact. There are no focal motor or sensory deficits noted. Skin is warm dry. There is a wound VAC in place over the lateral aspect of the left thigh. There is some drainage coming from the wound. The wound VAC was left in place. Strength is 5/5 bilateral in the upper and lower extremities. There are no sensory deficits. Test Results: CBC was within normal limits. Comprehensive metabolic profile showed a hypokalemia of 2.9. Sodium was 133 and chloride was 96. Glucose was 242. Anion gap was normal. Total bilirubin was slightly elevated at 1.6. AST was low at 5. Urinalysis showed glucose of 1000 and ketones of 150. There is no evidence of urinary tract infection. Serum ketones were small. Emergency Department Course and Treatment: The wound VAC was left in place since there is nobody here at this time from the wound care center to replace the dressing and wound VAC. Patient was given oral potassium here. Patient was given a dose of Unasyn here. Patient was given a prescription for Augmentin. Patient was instructed to follow-up with his primary care physician and wound care center in 3 to 5 days. Patient understood and was agreeable with the plan. All questions were answered. Disposition: Discharge home Impression: Wound infection left thigh This note was generated with [employer] dictation software. It may contain incorrect words, spelling, and punctuation that were not noted in review of the chart prior to signing ED Disposition - Plan for ED Patient: Disposition: Home or Assisted Living Diagnosis: Wound infection Instructions: ED Wound Check (Infection) Prescriptions: Amox/Clavulanate Tablet [Augmentin Tablet] 875 mg PO Q12H #20 tab Transmission Status: Received by [facility] Referrals: Tori Butler MD [Primary Care Provider] - 3-5 Days Clinic,Wound [None] - As soon as possible
[2021-02-18] MEDS: Potassium Chloride Oral Tablet 20 MEQ 60 MEQ PO (22:17)
== END 2021-02-18 23:05 | disposition home or self-care (01) ==
PROVIDERS: Emergency Provider Emergency Medicine; PCP Pediatrics
DX: L08.9 Local infection of the skin and subcutaneous tissue, unspecified (principal)
CPT/HCPCS: 80053; 81001; 82009; 85025; 87040; 96365; 99285; J7050; A4216; J0295

== ENCOUNTER 2021-03-07 14:00 | Outpatient (RCR) | payer MEDICAID, SELFPAY ==
[2021-02-07 15:56] VITALS: BMI 21.4
[2021-02-10 00:44] VITALS: BP 122/83; PULSE 118; RESP 20; TEMP 36.6
[2021-02-14 14:17] VITALS: BP 134/77; RESP 18; TEMP 37.2; BMI 21.4
--- NOTE | 2021-02-14 14:43 | PN.PCM_ITS ---
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 Laura on 12/10/2020 History of Wound: Surgery 12/24/20 - Surgical preparation left posterior thigh with incision and drainage and excisional debridement nonhealing infected necrotic diabetic ulcer with abscess including necrotic muscle (276 cm2). Wound care - Theraskin #1 applied today. 26 cm2 used, 100% of the product was used. Held in place with dermabond and steri strips. Covered with adaptic touch and secured with steri strips. Wound VAC placed over area at 125 mmHg. Surgical wound cultures positive for Rhizopus species, Klebsiella pneumoniae, and Anaerobic cocci. ID was consulted and he was on Doxycycline and Unasyn while hospitalized and was discharged on Augmentin and Doxycycline for an additional 5 days. Prealbumin on 12/27/20 was 10.1. Encouraged protein supplementation to help with wound healing. When he was discharged, on 12/28/20, he went to [facility]. He was readmitted to the hospital on 01/24/2021 and discharged on 01/27/2021 for DKA. We will order a dietary consult. Today he denies fever. He states his appetite is good. Progress of Wound: Left thigh wound is improved. - Physical Exam Vital Signs Temp Pulse Resp BP 98.9 F 118 H 18 134/77 H 02/14/21 14:17 02/10/21 00:44 02/14/21 14:17 02/14/21 14:17 General: Alert, Oriented x3, Cooperative HEENT: Atraumatic Oral: Moist Mucosa Lungs: Normal air movement Cardiovascular: Regular rate Extremities: Capillary Refill Less than 3 Seconds, Edema Skin: Ulcer/ Wound - Left posterior lateral leg ulcer is beefy pink. Depth has improved. Wound Measurements and Assessment WC - Nurse 1 - General Ulcer Measurement Start: 02/11/21 05:33 Freq: Status: Active Protocol: Activity Type Activity Date Activity User E-Sign Co-Sign Detail Recorded Client Recorded Date Recorded By Document 02/14/21 14:17 [facility] [id number] 02/14/21 14:24 [facility] 02/14/21 14:17 Wound Center Nurse 1 [Ulcer Assessment] 1 left post thigh -Combined with other wound No -Current Size (cm) - Length 16.1 -Current Size (cm) - Width 4.4 -Current Size (cm) - Depth 0.1 -Total Square Cm 70.84 -Photo Taken No -Epithelialization Small 1-33% -Tunneling No -Undermining/Tunneling No -Circular Undermining No -Exudate Amt Large -Exudate Type Serosanguineous -Wound Margin Distinct, Outline Attached -Granulation Amt Large (67-100%) -Granulation Quality Red -Slough/Fibrin Yes -Necrosis Amt Small (1-33%) -Necrotic Tissue Type Adherent Slough -Texture (Summer-wound Skin Appearance) Assessed, Scarring -Moisture (Summer-wound Skin Appearance Assessed ) -Color (Summer-wound Skin Appearance) Assessed -Temperature (Summer-wound Skin No Abnormality Appearance) (Pt Warm) -Tenderness on Palpation (Summer-wound No Skin Appearance) -Ulcer Cleansing soapy water -Foul Odor after Cleansing No -Anesthetic Used 4% Lidocaine Solution WC - Nurse 2 - General Ulcer CM Notes Start: 02/11/21 05:33 Freq: Status: Active Protocol: Activity Type Activity Date Activity User E-Sign Co-Sign Detail Recorded Client Recorded Date Recorded By Document 02/14/21 14:35 [id number] 02/14/21 14:38 02/14/21 14:35 Wound Center Nurse 2 [Procedure/Treatment] -Time 14:36 -Correct Patient Yes -Correct Side, Site, Position Yes -Correct Procedure Yes -Procedure Performed Yes -Type of Procedure Debridement -Clinical Debridement Subcutaneous -Tissue Removed Subcutaneous -Post Debridement (cm) - Length 15 -Post Debridement (cm) - Width 4.5 -Post Debridement (cm) - Depth 0.1 -Total Square (Post) (cm) 67.5 -Area of Debridement (cm) - Length 15 -Area of Debridement (cm) - Width 4.5 -Total Square (Area) (cm) 67.5 -Tunneling No -Undermining/Tunneling No -Circular Undermining No -Wound/Ulcer Outcome Not Healed -Ulcer Cleansing Rinsed/ Irrigated with Saline -Foul Odor after Cleansing No -Bioengineered Tissue Yes -Type of Bioengineered Tissue Theraskin -Expiration Date 12/26/24 -Product Lot Number [id number] -Percent Used 100 -Lot number of Saline Used [id number] -Bleeding Controlled with Pressure -Offloading No -Treatment Response Procedure Tolerated Well -Debridement - Subq, 1st 20sq cm No -Apply Skin Sub - 1st 25 sq cm - Legs 1 -Apply Skin Sub - each addt'l 25 sq 2 cm - Legs -Theraskin (per sq cm) 26 [See Physician Procedure note for Specifics] Pain Scale: 0-10 Numeric [Pain] -Is Patient Pain Free? Yes Musculoskeletal: No Tenderness to Palpation of Joints or Extremities Neurological: Cranial nerves II-XII grossly intact Psych/Mental Status: Normal Affect, Appropriate Debridement Note Post-Debridement Measurements/Treatment WC - Nurse 2 - General Ulcer CM Notes Start: 02/11/21 05:33 Freq: Status: Active Protocol: Activity Type Activity Date Activity User E-Sign Co-Sign Detail Recorded Client Recorded Date Recorded By Document 02/14/21 14:35 ROSE [id number] 02/14/21 14:38 ROSE 02/14/21 14:35 Wound Center Nurse 2 1 left post thigh -Time 14:36 -Correct Patient Yes -Correct Side, Site, Position Yes -Correct Procedure Yes -Procedure Performed Yes -Type of Procedure Debridement -Clinical Debridement Subcutaneous -Tissue Removed Subcutaneous -Post Debridement (cm) - Length 15 -Post Debridement (cm) - Width 4.5 -Post Debridement (cm) - Depth 0.1 -Total Square (Post) (cm) 67.5 -Area of Debridement (cm) - Length 15 -Area of Debridement (cm) - Width 4.5 -Total Square (Area) (cm) 67.5 -Tunneling No -Undermining/Tunneling No -Circular Undermining No -Wound/Ulcer Outcome Not Healed -Ulcer Cleansing Rinsed/ Irrigated with Saline -Foul Odor after Cleansing No -Bioengineered Tissue Yes -Type of Bioengineered Tissue Theraskin -Expiration Date 12/26/24 -Product Lot Number [id number] -Percent Used 100 -Lot number of Saline Used [id number] -Bleeding Controlled with Pressure -Offloading No -Treatment Response Procedure Tolerated Well -Debridement - Subq, 1st 20sq cm No -Apply Skin Sub - 1st 25 sq cm - Legs 1 -Apply Skin Sub - each addt'l 25 sq cm 2 - Legs -Theraskin (per sq cm) 26 Pain Scale: 0-10 Numeric Is Patient Pain Free? Yes WC - Nurse 3 - General Ulcer D/C NN Start: 02/11/21 05:33 Freq: Status: Active Protocol: Activity Type Activity Date Activity User E-Sign Co-Sign Detail Recorded Client Recorded Date Recorded By Document 02/11/21 05:33 PL [id number] 02/11/21 05:35 PL 02/11/21 05:33 Wound Care Nurse 3 1 left post thigh -Ulcer Cleansing Rinsed/ Irrigated with Saline -Foul Odor after Cleansing No -Negative Pressure Wound Therapy Continue -Setting (mmHg) 150 -Negative Pressure is Continuous -NPWT Application Charge ($) NPWT > 50 sq cm Pain Scale: 0-10 Numeric Is Patient Pain Free? Yes Wound debrided: Posterior lateral thigh Laterality: Left Type of Debridement: Excisional debridement Anesthesia Used: 5% Lidocaine Gel Depth: Down to and including healthy tissue, in the subcutaneous layer Percentage of wound debrided: 100 Instrument Used: 7mm curette Tissue Removed: Subcutaneous tissue and slough Severity: Fat Layer Exposed Amount of bleeding with debridement: Mild Bleeding Controlled with: Pressure, Compression and gauze Patient tolerated procedure well Assessment/Plan Active Problems (Last Updated 01/24/21 @ 15:[address] 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 Nonhealing infected necrotic diabetic ulcer with abscess left posterior thigh. 2. DKA. 3. Sepsis. 4. Type I Diabetes mellitus, uncontrolled. 5. HgbA1c >14. Plan: Wound care - Theraskin #1 applied today. 26 cm2 used, 100% of the product was used. The product covered about 1/3 of the ulcer. Held in place with dermabond and steri strips. Covered with adaptic touch and secured with steri strips. Wound VAC placed over area at 125 mmHg. He no longer has home health will go into his home due to his living conditions since he was discharged from [facility]. He was just recently admitted on 01/24/2021- 01/12/21 for DKA. I ordered a dietary consult to help him with food choices. He states he has not heard from the dietitian. We gave him the number for him to call. Also reinforced this with his grandmother. Surgical wound cultures positive for Rhizopus species, Klebsiella pneumoniae, and Anaerobic cocci. ID was consulted and he was on Doxycycline and Unasyn while hospitalized and was discharged on Augmentin and Doxycycline for an additional 5 days, which he has completed. Follow-up in 1 week. We will plan on placing a second Theraskin to cover the remaining ulcer. 150xxx-152xx: [id number] Skin sub graft trnk/arm/leg - 58 modifier Add On Codes: 41686 Skin sub graft t/a/l add-on - x2
[2021-03-07 14:06] VITALS: BP 140/87; RESP 16; TEMP 36.4; BMI 21.4
--- NOTE | 2021-03-07 14:47 | PN.PCM_ITS ---
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 Laura on 12/10/2020 History of Wound: Surgery 12/24/20 - Surgical preparation left posterior thigh with incision and drainage and excisional debridement nonhealing infected necrotic diabetic ulcer with abscess including necrotic muscle (276 cm2). Wound care - Theraskin #1 on February 14. Patient has not been back to the wound center since due to transportation issues. Keramax dressing with gauze daily. SUSHIL wrap for compression. Surgical wound cultures positive for Rhizopus species, Klebsiella pneumoniae, and Anaerobic cocci. ID was consulted and he was on Doxycycline and Unasyn while hospitalized and was discharged on Augmentin and Doxycycline for an additional 5 days. Prealbumin on 12/27/20 was 10.1. Encouraged protein supplementation to help with wound healing. When he was discharged, on 12/28/20, he went to [facility]. He was readmitted to the hospital on 01/24/2021 and discharged on 01/27/2021 for DKA. I ordered a dietary consult. I am unsure if he ever followed through with meeting with them. Today he denies fever. He states his appetite is good. Progress of Wound: Left thigh wound is improved. - Physical Exam Vital Signs Temp Pulse Resp BP 97.5 F L 118 H 16 140/87 H 03/07/21 14:06 02/10/21 00:44 03/07/21 14:06 03/07/21 14:06 General: Alert, Oriented x3 HEENT: Atraumatic Oral: Moist Mucosa Lungs: Normal air movement Cardiovascular: Regular rate Extremities: No edema, Capillary Refill Less than 3 Seconds Skin: Ulcer/ Wound - Left lateral thigh ulcer is beefy pink with hypergranulation and the theraskin placed on the distal portion. Wound Measurements and Assessment WC - Nurse 1 - General Ulcer Measurement Start: 02/11/21 05:33 Freq: Status: Active Protocol: Activity Type Activity Date Activity User E-Sign Co-Sign Detail Recorded Client Recorded Date Recorded By Document 03/07/21 14:06 [facility] [id number] 03/07/21 14:11 [facility] 03/07/21 14:06 Wound Center Nurse 1 [Ulcer Assessment] 1 left post thigh -Combined with other wound No -Current Size (cm) - Length 13.7 -Current Size (cm) - Width 2.5 -Current Size (cm) - Depth 0.1 -Total Square Cm 34.25 -Photo Taken No -Epithelialization Small 1-33% -Tunneling No -Undermining/Tunneling No -Circular Undermining No -Exudate Amt Medium -Exudate Type Serosanguineous -Wound Margin Distinct, Outline Attached -Granulation Amt Large (67-100%) -Granulation Quality Red -Slough/Fibrin Yes -Necrosis Amt Small (1-33%) -Necrotic Tissue Type Adherent Slough -Texture (Summer-wound Skin Appearance) Assessed, Scarring -Moisture (Summer-wound Skin Appearance Assessed ) -Color (Summer-wound Skin Appearance) Assessed -Temperature (Summer-wound Skin No Abnormality Appearance) (Pt Warm) -Tenderness on Palpation (Summer-wound No Skin Appearance) -Ulcer Cleansing Rinsed/ Irrigated with Saline -Foul Odor after Cleansing No -Anesthetic Used 4% Lidocaine Solution - Nurse 2 - General Ulcer CM Notes Start: 02/11/21 05:33 Freq: Status: Active Protocol: Activity Type Activity Date Activity User E-Sign Co-Sign Detail Recorded Client Recorded Date Recorded By Document 03/07/21 14:38 ROSE [id number] 03/07/21 14:44 ROSE 03/07/21 14:38 Wound Center Nurse 2 [Procedure/Treatment] -Time 14:39 -Correct Patient Yes -Correct Side, Site, Position Yes -Correct Procedure Yes -Procedure Performed Yes -Type of Procedure Debridement -Clinical Debridement Subcutaneous -Tissue Removed Subcutaneous -Post Debridement (cm) - Length 12.5 -Post Debridement (cm) - Width 1.8 -Post Debridement (cm) - Depth 0.1 -Total Square (Post) (cm) 22.50 -Area of Debridement (cm) - Length 12.5 -Area of Debridement (cm) - Width 1.8 -Total Square (Area) (cm) 22.50 -Tunneling No -Undermining/Tunneling No -Circular Undermining No -Wound/Ulcer Outcome Not Healed -Ulcer Cleansing Rinsed/ Irrigated with Saline -Foul Odor after Cleansing No -Bioengineered Tissue No -Bleeding Controlled with Pressure -Offloading No -Treatment Response Procedure Tolerated Well -Debridement - Subq, 1st 20sq cm Yes -Debridement, SubQ, ea addt'l 20sq cm 1 or part thereof [See Physician Procedure note for Specifics] Pain Scale: 0-10 Numeric [Pain] -Is Patient Pain Free? Yes Musculoskeletal: No Tenderness to Palpation of Joints or Extremities Neurological: Cranial nerves II-XII grossly intact Psych/Mental Status: Normal Affect, Appropriate Debridement Note Post-Debridement Measurements/Treatment WC - Nurse 2 - General Ulcer CM Notes Start: 02/11/21 05:33 Freq: Status: Active Protocol: Activity Type Activity Date Activity User E-Sign Co-Sign Detail Recorded Client Recorded Date Recorded By Document 02/14/21 14:35 [id number] 02/14/21 14:38 Document 03/07/21 14:38 [id number] 03/07/21 14:44 02/14/21 03/07/21 14:35 14:38 Wound Center Nurse 2 1 left post thigh -Time 14:36 14:39 -Correct Patient Yes Yes -Correct Side, Site, Position Yes Yes -Correct Procedure Yes Yes -Procedure Performed Yes Yes -Type of Procedure Debridement Debridement -Clinical Debridement Subcutaneous Subcutaneous -Tissue Removed Subcutaneous Subcutaneous -Post Debridement (cm) - Length 15 12.5 -Post Debridement (cm) - Width 4.5 1.8 -Post Debridement (cm) - Depth 0.1 0.1 -Total Square (Post) (cm) 67.5 22.50 -Area of Debridement (cm) - Length 15 12.5 -Area of Debridement (cm) - Width 4.5 1.8 -Total Square (Area) (cm) 67.5 22.50 -Tunneling No No -Undermining/Tunneling No No -Circular Undermining No No -Wound/Ulcer Outcome Not Healed Not Healed -Ulcer Cleansing Rinsed/ Rinsed/ Irrigated with Irrigated with Saline Saline -Foul Odor after Cleansing No No -Bioengineered Tissue Yes No -Type of Bioengineered Tissue Theraskin -Expiration Date 12/26/24 -Product Lot Number [id number] -Percent Used 100 -Lot number of Saline Used [id number] -Bleeding Controlled with Pressure Pressure -Offloading No No -Treatment Response Procedure Procedure Tolerated Well Tolerated Well -Debridement - Subq, 1st 20sq cm No Yes -Debridement, SubQ, ea addt'l 20sq cm 1 or part thereof -Apply Skin Sub - 1st 25 sq cm - Legs 1 -Apply Skin Sub - each addt'l 25 sq cm 2 - Legs -Theraskin (per sq cm) 26 Pain Scale: 0-10 Numeric Is Patient Pain Free? Yes Yes WC - Nurse 3 - General Ulcer D/C NN Start: 02/11/21 05:33 Freq: Status: Active Protocol: Activity Type Activity Date Activity User E-Sign Co-Sign Detail Recorded Client Recorded Date Recorded By Document 02/11/21 05:33 PL [id number] 02/11/21 05:35 PL Document 02/14/21 14:45 PL [id number] 02/15/21 06:58 PL 02/11/21 02/14/21 05:33 14:45 Wound Care Nurse 3 1 left post thigh -Ulcer Cleansing Rinsed/ Irrigated with Saline -Foul Odor after Cleansing No -Negative Pressure Wound Therapy Continue Continue -Setting (mmHg) 150 125 -Negative Pressure is Continuous Continuous -NPWT Application Charge ($) NPWT > 50 sq cm NPWT > 50 sq cm Pain Scale: 0-10 Numeric Is Patient Pain Free? Yes Yes Laterality: Left Type of Debridement: Excisional debridement Anesthesia Used: 5% Lidocaine Gel Depth: Down to and including healthy tissue, in the subcutaneous layer Percentage of wound debrided: 100 Instrument Used: 7mm curette Tissue Removed: Subcutaneous tissue and slough. Attempted to remove remaining theraskin. Severity: Fat Layer Exposed Amount of bleeding with debridement: Moderate Bleeding Controlled with: Pressure, Compression and gauze Patient tolerated procedure well Assessment/Plan Active Problems (Last Updated 01/24/21 @ 15:[address] 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 Nonhealing infected necrotic diabetic ulcer with abscess left posterior thigh. 2. DKA. 3. Sepsis. 4. Type I Diabetes mellitus, uncontrolled. 5. HgbA1c >14. Plan: Left thigh ulcer with theraskin still in place and hypergranulation. A subcutaneous debridement was performed and attempted to remove as much of the Theraskin as possible. Bleeding was controlled with gauze and compression. Wound care - Theraskin #1 applied on 04/04/21 with the wound VAC. He did not return to the wound center after placement of the Theraskin due to transportation issues. He stopped using the wound VAC. Will have him send it back. Will have him use Karamax dressings for absorption with gauze daily. (Today at the wound center we will use Aquacel-Ag covered by gauze due to not having a Karamax dressing). He no longer has home health will go into his home due to his living conditions since he was discharged from [facility]. He was just recently admitted on 01/24/2021- 01/12/21 for DKA. I ordered a dietary consult to help him with food choices. He states he has not heard from the dietitian. We gave him the number for him to call. Also reinforced this with his grandmother. Surgical wound cultures positive for Rhizopus species, Klebsiella pneumoniae, and Anaerobic cocci. ID was consulted and he was on Doxycycline and Unasyn while hospitalized and was discharged on Augmentin and Doxycycline for an additional 5 days, which he has completed. Follow-up in 1 week. [id number]: [id number] Global Visit
== END 2021-03-11 23:59 ==
LOC: WC 14:00
PROVIDERS: PCP Pediatrics; Referring Provider Surgery; Visit Provider Nurse Practitioner Family
DX: E10.622 Type 1 diabetes mellitus with other skin ulcer (principal); Z91.19 Patient's noncompliance with other medical treatment and regimen; E10.65 Type 1 diabetes mellitus with hyperglycemia; L97.122 Non-pressure chronic ulcer of left thigh with fat layer exposed
CPT/HCPCS: 11042; 11045; 15271; 15272; 97606; Q4121

== ENCOUNTER 2021-03-18 05:00 | Inpatient (IN) | payer MEDICAID, SELFPAY ==
[2021-03-18] VITALS (26 sets, daily range): BP systolic 88–175; BP diastolic 38–105; PULSE 87–132; RESP 19–38; TEMP 28.9–36.8; O2SAT 94–100; BMI 22.1
--- NOTE | 2021-03-18 05:01 | CT_ITS ---
STUDY: CT BRAIN WITHOUT CONTRAST REASON FOR EXAM: Male, 20 years old. Altered mental status RADIATION DOSAGE (If Supplied By Facility): CTDIvol = ( 44.99 ) mGy, DLP = ( 931.09 ) mGycm TECHNIQUE: Transaxial CT imaging of the brain was performed without administration of intravenous contrast material. Individualized dose optimization techniques were used for this CT. COMPARISON: No relevant priors. FINDINGS: Normal soft tissue structures. Normal calvarium. Normal size ventricles and extra-axial spaces for the patient''s age. Normal white matter tracts of the cerebral hemispheres. Normal basal ganglia and thalami. Normal brainstem. Normal cerebellum. There is no intracranial hemorrhage. There are no findings of an acute ischemic infarction. Normal visualized paranasal sinuses. CT/Brain/Head without Contrast IMPRESSION: Normal unenhanced CT scan of the brain. Electronically Signed: Valerie Coleman MD at 5:53 EDT Tel , Service support ,
--- NOTE | 2021-03-18 05:02 | EKG12_ITS ---
Test Reason : UNRESPONSIVE Blood Pressure : / mmHG Vent. Rate : 097 BPM Atrial Rate : 097 BPM P-R Int : 144 ms QRS Dur : 098 ms QT Int : 380 ms P-R-T Axes : 065 080 073 degrees QTc Int : 482 ms Normal sinus rhythm Prolonged QT Abnormal ECG Confirmed by YANE CASTILLO, ROXANNE ([id number]), film editor supervisor AYESHA VALLE ([id number]) on 03/21/2021 12:46:39 PM Referred By: DIMITRIS Confirmed By:ROXANNE CHE MD
--- NOTE | 2021-03-18 05:06 | EX.ED.DYSGE1 ---
HPI History of Present Illness Chief Complaint: Unresponsive Informant: friend and EMS Narrative Narrative: This patient is a 20-year-old male who was brought in by EMS. He is a diabetic. He was found unresponsive on the floor of the bathroom. Apparently he was staying with a friend and the friend did not know much of his other medical history. Apparently he had a recent surgery. The bystanders did not know what surgery this was but stated was something with tubes. No further history was able to be obtained at the initial time of presentation. Nursing was able to contact the patient's mother. Apparently is a noncompliant diabetic with history of frequent episodes of DKA and mother notes he is likely in DKA. His recent surgery was actually with a wound VAC to his left leg. PFSH [facility] Medical History (Updated 03/18/21 @ 05:10 by Ruslan Whelan) Asthma Diabetes Diabetes mellitus with ketoacidosis Ulcer of leg, chronic Home Medications insulin glargine [Lantus Solostar U-100 Insulin] 20 unit SUBCUT QHS 03/18/21 [History Last Taken Unknown] insulin lispro [Humalog Pen] 10 unit SUBCUT ACHS 03/18/21 [History Last Taken Unknown] Allergy/AdvReac Type Severity Reaction Status Date / Time No Known Allergies Allergy Verified 03/18/21 05:08 Social History Smoking Status: Never smoker ROS ROS ED Review of Systems ROS Unobtainable: due to mental status EXAM Physical Exam Const Vital Signs: 03/18/21 05:01 03/18/21 05:50 Temperature 97 F L Temperature Source Temporal Pulse Rate 97 Respiratory Rate 38 34 H Blood Pressure 175/105 H Blood Pressure Mean 128 Pulse Ox 98 Oxygen Delivery Method Room Air Positive cachectic General Appearance ED: cachectic Nutritional Appearance: cachectic HEENT Reports dry mucous membranes Mouth ED: Yes dry mucous membranes Mouth: dry mucous membranes Eyes EOMs intact bilaterally Neck supple Chest Wall inspection of chest normal Resp Resp Narrative: Tachypnea but lungs are clear without rales, rhonchi, wheezes Cardio regular rhythm and no murmurs Rate: tachycardic GI non-tender and non-distended Palpation: soft Extremity General Extremety ED: Negative for edema or tenderness General Extremity: Negative for edema Neuro Neuro Narrative: Patient is lethargic but will open his eyes to voice he does have purposeful movement he sat up in bed he will not follow commands he moves all 4 extremities does not appear to have focal or lateralizing neurological deficits Skin no rashes or lesions noted Skin Narrative: Patient has a healing wound along the back of the left thigh the central open portion of the wound measures 10 cm but does appear to be clean and dry I do not appreciate drainage foul odor or surrounding erythema. General Skin Exam: other MDM MDM MDM Narrative Medical decision making narrative: EKG shows normal sinus rhythm at a rate of 97 normal QRS duration QTC 482. ABG shows pH 6.7, PCO2 11, bicarb 1.4. Patient was given an amp of bicarb and started on a bicarbonate infusion given severe acidemia. Labs notable for white blood cell count of 22.8 which is likely reactive. Sodium 128, potassium 4.6, creatinine 1.2, glucose 676. Moderate serum acetone. Urinalysis notable for 1000 glucose, [address] of the head was normal, chest x-ray was normal. Patient was given 2 L of normal saline and also started on insulin infusion. Patient was discussed with the hospitalist service and admitted to the ICU. Lab Data Labs: Laboratory Results - last 24 hr 03/18/21 03/18/21 03/18/21 05:10 05:10 05:10 WBC 22.8 H RBC 6.03 Hgb 17.0 H Hct 51.4 MCV 85.2 MCH 28.2 MCHC 33.1 RDW Std Deviation 42.6 RDW Coeff of Rabia 13.9 Plt Count 691 H MPV 10.0 Immature Gran % (Auto) 3.600 H Neut % (Auto) 65.7 Lymph % (Auto) 19.6 [place] % (Auto) 10.1 H Eos % (Auto) 0.2 Baso % (Auto) 0.8 Absolute Neuts (auto) 15.0 H Absolute Lymphs (auto) 4.46 Nucleated RBC % 0 [address] Review May foll Sodium 128 L Potassium 4.6 Chloride 99 Carbon Dioxide 5.0 L* Anion Gap 24 H BUN 16 Creatinine 1.21 Estim Creat Clear Calc 93.66 Est GFR (MDRD) Af Amer 98 Est GFR (MDRD) Non-Af 81 BUN/Creatinine Ratio 13.2 Glucose 676 H* Calcium 7.9 L Total Bilirubin 0.80 AST 13 L ALT 21 Alkaline Phosphatase 133 H Total Protein 7.7 Albumin 4.2 Globulin 3.5 Albumin/Globulin Ratio 1.2 Urine Color Urine Clarity Urine pH Ur Specific [place] Urine Protein Urine Glucose (UA) Urine Ketones Urine Occult Blood Urine Nitrite Urine Bilirubin Urine Urobilinogen Ur Leukocyte Esterase Ur Drug Screen Comment Ethyl Alcohol Acetone Level MODERATE H POC Glucose 03/18/21 03/18/21 03/18/21 05:10 05:17 05:50 WBC RBC Hgb Hct MCV MCH MCHC RDW Std Deviation RDW Coeff of Rabia Plt Count MPV Immature Gran % (Auto) Neut % (Auto) Lymph % (Auto) [place] % (Auto) Eos % (Auto) Baso % (Auto) Absolute Neuts (auto) Absolute Lymphs (auto) Nucleated RBC % Diff Path Review Sodium Potassium Chloride Carbon Dioxide Anion Gap BUN Creatinine Estim Creat Clear Calc Est GFR (MDRD) Af Amer Est GFR (MDRD) Non-Af BUN/Creatinine Ratio Glucose Calcium Total Bilirubin AST ALT Alkaline Phosphatase Total Protein Albumin Globulin Albumin/Globulin Ratio Urine Color Yellow Urine Clarity Clear Urine pH 5.0 Ur Specific [place] 1.020 Urine Protein 30 H Urine Glucose (UA) 1000 H Urine Ketones 150 A* Urine Occult Blood 25 H Urine Nitrite Negative Urine Bilirubin Negative Urine Urobilinogen Normal Ur Leukocyte Esterase Negative Ur Drug Screen Comment Ethyl Alcohol 9.0 Acetone Level POC Glucose > 500 H* 03/18/21 05:50 WBC RBC Hgb Hct MCV MCH MCHC RDW Std Deviation RDW Coeff of Rabia Plt Count MPV Immature Gran % (Auto) Neut % (Auto) Lymph % (Auto) [place] % (Auto) Eos % (Auto) Baso % (Auto) Absolute Neuts (auto) Absolute Lymphs (auto) Nucleated RBC % Diff Path Review Sodium Potassium Chloride Carbon Dioxide Anion Gap BUN Creatinine Estim Creat Clear Calc Est GFR (MDRD) Af Amer Est GFR (MDRD) Non-Af BUN/Creatinine Ratio Glucose Calcium Total Bilirubin AST ALT Alkaline Phosphatase Total Protein Albumin Globulin Albumin/Globulin Ratio Urine Color Urine Clarity Urine pH Ur Specific [place] Urine Protein Urine Glucose (UA) Urine Ketones Urine Occult Blood Urine Nitrite Urine Bilirubin Urine Urobilinogen Ur Leukocyte Esterase Ur Drug Screen Comment Ethyl Alcohol Acetone Level POC Glucose ABG Data ABG results: ABG 03/18/21 05:15 Specimen Type ART Sample Site R RADIAL pH 6.71 L* Bicarbonate Actual 1.4 L Total CO2 5 Base Excess -30 L O2 Saturation 96 ABG pCO2 11.0 L* ABG pO2 157 H Hector Test POS O2 Delivery Device Nasal Can Liter Flow 2.0 Crit Call To/Read Back Yes Blood Gas Notified Whom ED MD Blood Gas Notified Time 1520 Clinical Comments HANDED TO DR JAMES Radiography Diagnostic Testing: Radiology Impression Brain CT 03/18/21 05:01 IMPRESSION: Normal unenhanced CT scan of the brain. Electronically Signed: Valerie Coleman MD at 5:53 EDT Tel , Service support , Chest X-Ray 03/18/21 05:30 IMPRESSION: Normal x-ray examination of the chest. Electronically Signed: Valerie Coleman MD at 5:53 EDT Tel , Service support , Discharge Plan Triage Chief Complaint: Unresponsive ED Provider: Israel James Dx/Rx/DC Orders Prescriptions: No Action insulin lispro [Humalog Pen] 100 unit/mL Insulin Pen 10 unit subcut ACHS RF: 0 Lantus Solostar U-100 Insulin 100 unit/mL (3 mL) Insulin Pen 20 unit subcut QHS RF: 0 Primary Care Provider: Tori Butler
[2021-03-18] MEDS: 0.9% Normal Saline 1,000 ML 1000 ML IV ×2 (05:10→06:24)
[2021-03-18 05:17] LABS: Absolute Lymphocyte Count 4.46 X10^3/uL (0.83-4.51); Basophil# 0.18 X10^3/uL; Basophil% 0.8 % (0-1); Eosinophil# 0.04 X10^3/uL; Eosinophils% 0.2 % (0-5); Hematocrit 51.4 % (40-54); Lymphocyte # 4.46 X10^3/ul (0.83-4.51); Lymphocyte % 19.6 % (19-41); Mean Corp Hgb Conc 33.1 g/dL (32-36); Mean Corpuscular Hgb 28.2 pg (27.0-32.0); Mean Corpuscular Volume 85.2 fL (80-94); Monocyte# 2.29 X10^3/uL; Monocyte% 10.1 % (0-10); NRBC Flagged by Analyzer 0 % (0-5); Neutrophil # 14.98 X10^3/uL (2.7-7.7); Neutrophil % 65.7 % (47-70); POSITIVE DIFFERENTIAL YES; Platelet Count 691 K/mm3 (150-450); RBC Distribution Width CV 13.9 % (11.6-14.6); RBC Distribution Width SD 42.6 fl (35.1-43.9); Red Blood Count 6.03 M/mm3 (4.6-6.2); White Blood Count 22.8 K/mm3 (4.4-11.0)
[2021-03-18 05:19] LABS: Differential Indicated SCAN CRITERIA MET
[2021-03-18 05:21] LABS: Bedside Glucose > 500 mg/dL (70-110)
--- NOTE | 2021-03-18 05:30 | RAD_ITS ---
STUDY: X-RAY CHEST REASON FOR EXAM: Male, 20 years old. Altered mental status, pt found unresponsive and has diabetes. TECHNIQUE: Single AP portable view of the chest. COMPARISON: None. FINDINGS: The lungs are clear and expanded. There is no demonstrated pleural abnormality. Normal size heart. Normal mediastinum and rudi. Normal visualized pulmonary arteries. Normal visualized aortic arch and descending thoracic aorta. Normal visualized thoracic spine. Normal visualized ribs, clavicles, and shoulders. The partially visualized gaseous appearance of the colon. RAD/Chest 1 View (Portable) IMPRESSION: Normal x-ray examination of the chest. Electronically Signed: Valerie Coleman MD at 5:53 EDT Tel , Service support ,
[2021-03-18 05:33] LABS: Allen Test POS; Blood Gas Specimen Type ART; O2 Delivery Device Nasal Can; SITE R RADIAL
[2021-03-18] MEDS: Sodium Bicarbonate 8.4% 50 ML Syringe 50 MEQ IV (05:33)
[2021-03-18 05:34] LABS: Time Given 1520; pH 6.71 (7.35-7.45)
[2021-03-18 05:35] LABS: Base Excess -30 mmol/L (-2 to +2); Bicarbonate 1.4 mmol/L (22-26); PO2 157 mmHG (75-100); SO2 96 % (95-99); Total Carbon Dioxide 5 mmol/L
[2021-03-18 05:51] LABS: ALB/GLOB Ratio 1.2 RATIO (0.9-2.4); AST(SGOT) 13 U/L (15-37); Alanine Aminotransfer ALT/SGPT 21 U/L (16-61); Albumin, Serum 4.2 g/dL (3.2-5.0); Alkaline Phosphatase 133 U/L (45-117); Anion Gap 24 (5-15); BUN 16 mg/dL (7-18); BUN/Creat Ratio 13.2 RATIO (10-20); Calcium,Total 7.9 mg/dL (8.5-10.1); Chloride 99 mmol/L (98-107); Creatinine, Serum 1.21 mg/dL (0.70-1.30); EST Glomerular Filtration Rate 81 mL/min (>60); Est Glom Filt Rate - Afr Amer 98 mL/min (>60); Estimated Creatinine Clearance 93.66 ml/min; Globulin 3.5 g/dL (2.2-4.2); Glucose 676 mg/dL (74-106); Potassium 4.6 mmol/L (3.5-5.1); Protein, Total 7.7 g/dL (6.4-8.2); Sodium Level 128 mmol/L (136-145)
[2021-03-18 05:52] LABS: Bacteria 0 SEEN /hpf (None Seen); Mucous, Urine 0 SEEN /hpf (<or=2+); Squamous Epithelial Cells - UA 0 SEEN /hpf (0-5); White Blood Cells 0 SEEN /hpf (0-5)
[2021-03-18 05:53] LABS: Color, Urine Yellow (Yellow); Glucose, Dipstick 1000 mg/dl (Normal); Leukocyte Esterase-Dipstick Negative /ul (Negative); Nitrite-Dipstick Negative (Negative); Occult Blood-Urine 25 /ul (Negative); Protein-Dipstick 30 mg/dl (Negative); Urine Bilirubin Dipstick Negative (Negative); Urine Clarity Clear (Clear); Urine Urobilinogen Normal (Normal)
[2021-03-18 05:55] LABS: Ketone-Dipstick 150 mg/dl (Negative)
--- NOTE | 2021-03-18 05:58 | HP.PCM.HOS_ITS ---
HPI - General General Date of Admission: 03/18/21 HPI Narrative SHIRA STEPHENSON, is a 20 M who presents here late yesterday history 20-year-old male found on the bathroom floor staying in a friend's house patient. He had a recent surgery he had a wound VAC on his left leg that was recently removed he was hyperglycemic for EMS mother reports that he is noncompliant diabetic with frequent episodes of DKA. History was received emergency department staff as patient is encephalopathic and unable to provide history. [facility] Medical History Asthma Diabetes Diabetes mellitus with ketoacidosis Ulcer of leg, chronic Home Medications insulin glargine [Lantus Solostar U-100 Insulin] 20 unit SUBCUT QHS 03/18/21 [History Last Taken Unknown] insulin lispro [Humalog Pen] 10 unit SUBCUT ACHS 03/18/21 [History Last Taken Unknown] Allergy/AdvReac Type Severity Reaction Status Date / Time No Known Allergies Allergy Verified 03/18/21 05:08 other (unable to obtain secondary to obtain) unable to obtain Social History Smoking Status: Never smoker ROS Review of Systems ROS Unobtainable: due to encephalopathy and other Details: History was obtained from emergency department staff Vital Signs Vital Signs Vital Signs: 03/18/21 05:01 03/18/21 05:50 Temperature 97 F L Temperature Source Temporal Pulse Rate 97 Respiratory Rate 38 34 H Blood Pressure 175/105 H Blood Pressure Mean 128 Pulse Ox 98 Oxygen Delivery Method Room Air Physical Exam Narrative Obtunded Nontraumatic; normocephalic Tachypnea; lung clear to auscultate Heart sounds S1-S2. No murmur, gallop or rubs. Abdomen bowel sounds present soft, nontender nondistended Extremity: Cool bilateral feet. Open wound on the posterior left thigh; no drainage. Lab / Micro Data Result Diagrams: 03/18/21 05:10 03/18/21 05:10 Labs: Laboratory Results - last 24 hr 03/18/21 03/18/21 03/18/21 05:10 05:10 05:10 WBC 22.8 H RBC 6.03 Hgb 17.0 H Hct 51.4 MCV 85.2 MCH 28.2 MCHC 33.1 RDW Std Deviation 42.6 RDW Coeff of Rabia 13.9 Plt Count 691 H MPV 10.0 Immature Gran % (Auto) 3.600 H Neut % (Auto) 65.7 Lymph % (Auto) 19.6 [place] % (Auto) 10.1 H Eos % (Auto) 0.2 Baso % (Auto) 0.8 Absolute Neuts (auto) 15.0 H Absolute Lymphs (auto) 4.46 Nucleated RBC % [address] Review May foll Sodium 128 L Potassium 4.6 Chloride 99 Carbon Dioxide 5.0 L* Anion Gap 24 H BUN 16 Creatinine 1.21 Estim Creat Clear Calc 93.66 Est GFR (MDRD) Af Amer 98 Est GFR (MDRD) Non-Af 81 BUN/Creatinine Ratio 13.2 Glucose 676 H* Calcium 7.9 L Total Bilirubin 0.80 AST 13 L ALT 21 Alkaline Phosphatase 133 H Total Protein 7.7 Albumin 4.2 Globulin 3.5 Albumin/Globulin Ratio 1.2 Urine Color Urine Clarity Urine pH Ur Specific [place] Urine Protein Urine Glucose (UA) Urine Ketones Urine Occult Blood Urine Nitrite Urine Bilirubin Urine Urobilinogen Ur Leukocyte Esterase Ur Drug Screen Comment Ethyl Alcohol Acetone Level MODERATE H POC Glucose 03/18/21 03/18/21 03/18/21 05:10 05:17 05:50 WBC RBC Hgb Hct MCV MCH MCHC RDW Std Deviation RDW Coeff of Rabia Plt Count MPV Immature Gran % (Auto) Neut % (Auto) Lymph % (Auto) [place] % (Auto) Eos % (Auto) Baso % (Auto) Absolute Neuts (auto) Absolute Lymphs (auto) Nucleated RBC % Diff Path Review Sodium Potassium Chloride Carbon Dioxide Anion Gap BUN Creatinine Estim Creat Clear Calc Est GFR (MDRD) Af Amer Est GFR (MDRD) Non-Af BUN/Creatinine Ratio Glucose Calcium Total Bilirubin AST ALT Alkaline Phosphatase Total Protein Albumin Globulin Albumin/Globulin Ratio Urine Color Yellow Urine Clarity Clear Urine pH 5.0 Ur Specific [place] 1.020 Urine Protein 30 H Urine Glucose (UA) 1000 H Urine Ketones 150 A* Urine Occult Blood 25 H Urine Nitrite Negative Urine Bilirubin Negative Urine Urobilinogen Normal Ur Leukocyte Esterase Negative Ur Drug Screen Comment Ethyl Alcohol 9.0 Acetone Level POC Glucose > 500 H* 03/18/21 05:50 WBC RBC Hgb Hct MCV MCH MCHC RDW Std Deviation RDW Coeff of Rabia Plt Count MPV Immature Gran % (Auto) Neut % (Auto) Lymph % (Auto) [place] % (Auto) Eos % (Auto) Baso % (Auto) Absolute Neuts (auto) Absolute Lymphs (auto) Nucleated RBC % Diff Path Review Sodium Potassium Chloride Carbon Dioxide Anion Gap BUN Creatinine Estim Creat Clear Calc Est GFR (MDRD) Af Amer Est GFR (MDRD) Non-Af BUN/Creatinine Ratio Glucose Calcium Total Bilirubin AST ALT Alkaline Phosphatase Total Protein Albumin Globulin Albumin/Globulin Ratio Urine Color Urine Clarity Urine pH Ur Specific [place] Urine Protein Urine Glucose (UA) Urine Ketones Urine Occult Blood Urine Nitrite Urine Bilirubin Urine Urobilinogen Ur Leukocyte Esterase Ur Drug Screen Comment Ethyl Alcohol Acetone Level POC Glucose ABG Data ABG results: ABG 03/18/21 05:15 Specimen Type ART Sample Site R RADIAL pH 6.71 L* Bicarbonate Actual 1.4 L Total CO2 5 Base Excess -30 L O2 Saturation 96 ABG pCO2 11.0 L* ABG pO2 157 H Hector Test POS O2 Delivery Device Nasal Can Liter Flow 2.0 Crit Call To/Read Back Yes Blood Gas Notified Whom ED MD Blood Gas Notified Time 1520 Clinical Comments HANDED TO DR JAMES Radiology Impression Brain CT 03/18/21 05:01 IMPRESSION: Normal unenhanced CT scan of the brain. Electronically Signed: Valerie Coleman MD at 5:53 EDT Tel , Service support , Chest X-Ray 03/18/21 05:30 IMPRESSION: Normal x-ray examination of the chest. Electronically Signed: Valerie Coleman MD at 5:53 EDT Tel , Service support , Assessment & Plan Assessment/Plan (1) DKA (diabetic ketoacidoses): QUALIFIERS: Diabetes mellitus complication detail: with coma Diabetes mellitus type: type 1 Qualified Code(s): E10.11 - Type 1 diabetes mellitus with ketoacidosis with coma PLAN: Likely secondary to noncompliance Emergency department labs reviewed showed moderate acetone and severe acidemia with very low bicarbonate. Received bicarbonate bolus and drip at the emergency department. Bicarbonate drip continued. Received normal saline bolus in the emergency department. Normal saline infusion continued per DKA protocol. ICU electrolyte protocol ordered. Insulin drip started at emergency department and continued. BMP every 4 hours to calculate anion gap. N.p.o. for now Admitted to ICU [employer] Crew Member consult. Wound with recent wound VAC Wet-to-dry dressing ordered Multi Select Codes Visit Charges Visit Charges: 81104 Init Hosp L3
[2021-03-18 06:03] LABS: Amorphous Sediment 1+; Red Blood Cells-Urine 0-5 SEEN /hpf (0-5)
[2021-03-18 06:04] LABS: Amphetamine Urine VISTA NEGATIVE (<1000 ng/mL); Barbiturate Urine VISTA NEGATIVE (< 200 ng/mL); Benzodiazepine Urine VISTA NEGATIVE (< 200 ng/mL); Cocaine Urine VISTA NEGATIVE (< 300 ng/mL); Ecstacy Urine VISTA NEGATIVE (< 500 ng/mL); Methadone Urine VISTA NEGATIVE (< 300 ng/mL); PCP Urine VISTA NEGATIVE (< 25 ng/mL); THC Urine VISTA NEGATIVE (< 50 ng/mL); Vista UDS pH Range 4
--- NOTE | 2021-03-18 06:36 | NURSING ---
icu dka dr braga
[2021-03-18 06:46] LABS: Bedside Glucose > 500 mg/dL (70-110)
--- NOTE | 2021-03-18 06:52 | NURSING ---
CV ICU 203
[2021-03-18 06:57] LABS: Osmolality, Serum 328 mOsm/KG (275-295)
[2021-03-18 07:37] LABS: Anion Gap 23 (5-15); BUN 16 mg/dL (7-18); BUN/Creat Ratio 15.5 RATIO (10-20); Calcium,Total 7.6 mg/dL (8.5-10.1); Chloride 103 mmol/L (98-107); Creatinine, Serum 1.03 mg/dL (0.70-1.30); EST Glomerular Filtration Rate 98 mL/min (>60); Est Glom Filt Rate - Afr Amer 118 mL/min (>60); Estimated Creatinine Clearance 110.03 ml/min; Glucose 583 mg/dL (74-106); Potassium 4.5 mmol/L (3.5-5.1); Sodium Level 131 mmol/L (136-145)
--- NOTE | 2021-03-18 07:41 | EX.PCM.CONCC ---
Assessment & Plan Assessment/Plan (1) DKA (diabetic ketoacidoses): QUALIFIERS: Diabetes mellitus complication detail: with coma Diabetes mellitus type: type 1 Qualified Code(s): E10.11 - Type 1 diabetes mellitus with ketoacidosis with coma (2) Metabolic encephalopathy: PLAN: RECOMMENDATIONS: 1. Continue supplemental IV fluid hydration per DKA protocol. 2. Continue insulin infusion until anion gap has been closed x2. 3. Aggressive electrolyte repletion. 4. Check hemoglobin A1c. IMPRESSIONS: 1. Diabetic ketoacidosis Most likely secondary to outpatient noncompliance. The patient has a hemoglobin A1c of greater than 11. Recommend continuing current supportive measures per protocol with supplemental IV fluid hydration and continuous insulin infusion. Once anion gap has been closed x2, the patient can be transitioned to basal and sliding scale insulin coverage. Diabetic education to be provided. Will monitor and aggressively replete electrolytes as needed. 2. Encephalopathy Likely metabolic in etiology. Anticipate improvement in mentation with correction of the patient's underlying metabolic derangements. Continue management as noted above. This note was generated with [employer] dictation software. It may contain incorrect words, spelling, and punctuation that were not noted in checking the note before signing. HPI Consult Data Date of Consult: 03/19/21 HPI Narrative Reason for Consultation: Diabetic ketoacidosis, encephalopathy HPI Narrative: The patient is a 20-year-old male, with a history as outlined below, who presented to the emergency department on March 18 via EMS after being found unresponsive on the floor of the bathroom. Only limited medical history could be obtained from the patient, as he is quite lethargic. The patient has a known history of noncompliance with his outpatient diabetic regimen. On presentation to the emergency department, the patient was noted to be afebrile and hemodynamically stable. He was maintaining appropriate oxygen saturations on room air. Initial laboratory evaluation revealed an elevated white blood cell count to 23,000. Arterial blood gas obtained on 2 L/min revealed a pH of 6.7, PCO2 of 11 and PO2 of 157. Chemistry profile was notable for a sodium of 131, bicarbonate of 5, anion gap of 23 and creatinine 1.03. Moderate serum acetone was noted. The patient received supplemental IV fluid hydration and was placed on a continuous insulin infusion. He was subsequently admitted to the medical intensive care unit for further management. [facility] Medical History Asthma Diabetes Diabetes mellitus with ketoacidosis Ulcer of leg, chronic Home Medications insulin glargine [Lantus Solostar U-100 Insulin] 20 unit SUBCUT QHS 03/18/21 [History Last Taken Unknown] insulin lispro [Humalog Pen] 10 unit SUBCUT ACHS 03/18/21 [History Last Taken Unknown] Allergy/AdvReac Type Severity Reaction Status Date / Time No Known Allergies Allergy Verified 03/18/21 05:08 Social History Smoking Status: Never smoker ROS Review of Systems ROS Unobtainable: due to encephalopathy Physical Exam Const no apparent distress Constitutional Narrative: Will open eyes transiently and attempt to answer questions. General Appearance: lethargic HEENT normocephalic and head/scalp atraumatic Mouth: dry mucous membranes Teeth and Gingiva: poor dentition Eyes PERRL and EOMs intact bilaterally Resp Effort and Inspection: tachypneic Auscultation: Negative for rales, rhonchi or wheezes Cardio S1 normal heart sound and S2 normal heart sound Rate: tachycardic GI normal to inspection, nondistended, normoactive bowel sounds Extremity no clubbing, cyanosis or edema Neuro Neuro Narrative: No focal neurological deficits. Psych Mood & Affect: flat affect Lab / Micro Data Result Diagrams: 03/19/21 04:30 03/19/21 04:30 Labs: Laboratory Results - last 24 hr 03/18/21 03/18/21 03/18/21 05:10 05:10 05:10 WBC 22.8 H RBC 6.03 Hgb 17.0 H Hct 51.4 MCV 85.2 MCH 28.2 MCHC 33.1 RDW Std Deviation 42.6 RDW Coeff of Rabia 13.9 Plt Count 691 H MPV 10.0 Immature Gran % (Auto) 3.600 H Neut % (Auto) 65.7 Lymph % (Auto) 19.6 [place] % (Auto) 10.1 H Eos % (Auto) 0.2 Baso % (Auto) 0.8 Absolute Neuts (auto) 15.0 H Absolute Lymphs (auto) 4.46 Nucleated RBC % [address] Review May foll Sodium 128 L Potassium 4.6 Chloride 99 Carbon Dioxide 5.0 L* Anion Gap 24 H BUN 16 Creatinine 1.21 Estim Creat Clear Calc 93.66 Est GFR (MDRD) Af Amer 98 Est GFR (MDRD) Non-Af 81 BUN/Creatinine Ratio 13.2 Glucose 676 H* Serum Osmolality Calcium 7.9 L Total Bilirubin 0.80 AST 13 L ALT 21 Alkaline Phosphatase 133 H Total Protein 7.7 Albumin 4.2 Globulin 3.5 Albumin/Globulin Ratio 1.2 Urine Color Urine Clarity Urine pH Ur Specific [place] Urine Protein Urine Glucose (UA) Urine Ketones Urine Occult Blood Urine Nitrite Urine Bilirubin Urine Urobilinogen Ur Leukocyte Esterase Urine RBC Urine WBC Ur Squamous Epith Cells Amorphous Sediment Urine Bacteria Urine Mucus Urine Opiates Screen Urine Methadone Screen Ur Barbiturates Screen Ur Phencyclidine Scrn Ur Amphetamines Screen U Methamphetamin-MDMA U Benzodiazepines Scrn Urine Cocaine Screen U Cannabinoids Screen Ur Drug Screen Comment Ethyl Alcohol Acetone Level MODERATE H POC Glucose 03/18/21 03/18/21 03/18/21 05:10 05:10 05:17 WBC RBC Hgb Hct MCV MCH MCHC RDW Std Deviation RDW Coeff of Rabia Plt Count MPV Immature Gran % (Auto) Neut % (Auto) Lymph % (Auto) [place] % (Auto) Eos % (Auto) Baso % (Auto) Absolute Neuts (auto) Absolute Lymphs (auto) Nucleated RBC % Diff Path Review Sodium Potassium Chloride Carbon Dioxide Anion Gap BUN Creatinine Estim Creat Clear Calc Est GFR (MDRD) Af Amer Est GFR (MDRD) Non-Af BUN/Creatinine Ratio Glucose Serum Osmolality 328 H Calcium Total Bilirubin AST ALT Alkaline Phosphatase Total Protein Albumin Globulin Albumin/Globulin Ratio Urine Color Urine Clarity Urine pH Ur Specific [place] Urine Protein Urine Glucose (UA) Urine Ketones Urine Occult Blood Urine Nitrite Urine Bilirubin Urine Urobilinogen Ur Leukocyte Esterase Urine RBC Urine WBC Ur Squamous Epith Cells Amorphous Sediment Urine Bacteria Urine Mucus Urine Opiates Screen Urine Methadone Screen Ur Barbiturates Screen Ur Phencyclidine Scrn Ur Amphetamines Screen U Methamphetamin-MDMA U Benzodiazepines Scrn Urine Cocaine Screen U Cannabinoids Screen Ur Drug Screen Comment Ethyl Alcohol 9.0 Acetone Level POC Glucose > 500 H* 03/18/21 03/18/21 03/18/21 05:50 05:50 06:35 WBC RBC Hgb Hct MCV MCH MCHC RDW Std Deviation RDW Coeff of Rabia Plt Count MPV Immature Gran % (Auto) Neut % (Auto) Lymph % (Auto) [place] % (Auto) Eos % (Auto) Baso % (Auto) Absolute Neuts (auto) Absolute Lymphs (auto) Nucleated RBC % Diff Path Review Sodium Potassium Chloride Carbon Dioxide Anion Gap BUN Creatinine Estim Creat Clear Calc Est GFR (MDRD) Af Amer Est GFR (MDRD) Non-Af BUN/Creatinine Ratio Glucose Serum Osmolality Calcium Total Bilirubin AST ALT Alkaline Phosphatase Total Protein Albumin Globulin Albumin/Globulin Ratio Urine Color Yellow Urine Clarity Clear Urine pH 5.0 Ur Specific [place] 1.020 Urine Protein 30 H Urine Glucose (UA) 1000 H Urine Ketones 150 A* Urine Occult Blood 25 H Urine Nitrite Negative Urine Bilirubin Negative Urine Urobilinogen Normal Ur Leukocyte Esterase Negative Urine RBC 0-5 SEEN Urine WBC 0 SEEN Ur Squamous Epith Cells 0 SEEN Amorphous Sediment 1+ Urine Bacteria 0 SEEN Urine Mucus 0 SEEN Urine Opiates Screen NEGATIVE Urine Methadone Screen NEGATIVE Ur Barbiturates Screen NEGATIVE Ur Phencyclidine Scrn NEGATIVE Ur Amphetamines Screen NEGATIVE U Methamphetamin-MDMA NEGATIVE U Benzodiazepines Scrn NEGATIVE Urine Cocaine Screen NEGATIVE U Cannabinoids Screen NEGATIVE Ur Drug Screen Comment Ethyl Alcohol Acetone Level POC Glucose > 500 H* 03/18/21 06:50 WBC RBC Hgb Hct MCV MCH MCHC RDW Std Deviation RDW Coeff of Rabia Plt Count MPV Immature Gran % (Auto) Neut % (Auto) Lymph % (Auto) [place] % (Auto) Eos % (Auto) Baso % (Auto) Absolute Neuts (auto) Absolute Lymphs (auto) Nucleated RBC % Diff Path Review Sodium 131 L Potassium 4.5 Chloride 103 Carbon Dioxide 5.0 L* Anion Gap 23 H BUN 16 Creatinine 1.03 Estim Creat Clear Calc 110.03 Est GFR (MDRD) Af Amer 118 Est GFR (MDRD) Non-Af 98 BUN/Creatinine Ratio 15.5 Glucose 583 H* Serum Osmolality Calcium 7.6 L Total Bilirubin AST ALT Alkaline Phosphatase Total Protein Albumin Globulin Albumin/Globulin Ratio Urine Color Urine Clarity Urine pH Ur Specific [place] Urine Protein Urine Glucose (UA) Urine Ketones Urine Occult Blood Urine Nitrite Urine Bilirubin Urine Urobilinogen Ur Leukocyte Esterase Urine RBC Urine WBC Ur Squamous Epith Cells Amorphous Sediment Urine Bacteria Urine Mucus Urine Opiates Screen Urine Methadone Screen Ur Barbiturates Screen Ur Phencyclidine Scrn Ur Amphetamines Screen U Methamphetamin-MDMA U Benzodiazepines Scrn Urine Cocaine Screen U Cannabinoids Screen Ur Drug Screen Comment Ethyl Alcohol Acetone Level POC Glucose ABG Data ABG results: ABG 03/18/21 05:15 Specimen Type ART Sample Site R RADIAL pH 6.71 L* Bicarbonate Actual 1.4 L Total CO2 5 Base Excess -30 L O2 Saturation 96 ABG pCO2 11.0 L* ABG pO2 157 H Hector Test POS O2 Delivery Device Nasal Can Liter Flow 2.0 Crit Call To/Read Back Yes Blood Gas Notified Whom ED Blood Gas Notified Time 1520 Clinical Comments HANDED TO DR JAMES Radiology Impression Brain CT 03/18/21 05:01 IMPRESSION: Normal unenhanced CT scan of the brain. Electronically Signed: Valerie Coleman MD at 5:53 EDT Tel , Service support , Chest X-Ray 03/18/21 05:30 IMPRESSION: Normal x-ray examination of the chest. Electronically Signed: Valerie Coleman MD at 5:53 EDT Tel , Service support , Charges/Coding Visit Charges Inpatient E&M: 55566 Init Hosp L3
[2021-03-18 08:11] LABS: Bedside Glucose > 500 mg/dL (70-110)
[2021-03-18] MEDS: 0.9% Normal Saline 1,000 ML 500 ML IV (08:30)
[2021-03-18 09:20] LABS: Anion Gap 20 (5-15); BUN 17 mg/dL (7-18); BUN/Creat Ratio 16.5 RATIO (10-20); Calcium,Total 8.1 mg/dL (8.5-10.1); Chloride 108 mmol/L (98-107); Creatinine, Serum 1.03 mg/dL (0.70-1.30); EST Glomerular Filtration Rate 98 mL/min (>60); Est Glom Filt Rate - Afr Amer 118 mL/min (>60); Estimated Creatinine Clearance 110.03 ml/min; Glucose 503 mg/dL (74-106); Magnesium 2.4 mg/dL (1.6-2.6); Phosphorus 3.3 mg/dL (2.5-4.9); Potassium 4.9 mmol/L (3.5-5.1); Sodium Level 132 mmol/L (136-145)
[2021-03-18 09:48] LABS: Hemoglobin A1c 11.2 % (3.8-5.6)
[2021-03-18 10:15] LABS: Bedside Glucose 393 mg/dL (70-110)
[2021-03-18] MEDS: 0.9% Normal Saline 1,000 ML 250 ML IV (10:30)
[2021-03-18 11:20] LABS: Bedside Glucose 338 mg/dL (70-110)
--- NOTE | 2021-03-18 11:22 | CASEMGMT ---
VERONA FONTANEZ chart review: Pt is on his 4th admission this year for DKA/Wound care/management. Per previous notes, pt is non-compliant DM but does see Dr. Galindo every 2-3 months(last visit was 01/21/21 and next visit is scheduled for 04/04/21). Pt has been following in the wound center(last visit 03/14/21) and recently had wound vac removed. Pt no longer has HHC d/t condition of home and APS/CPS have previously been consulted d/t same. All information obtained from recent previous visits as pt is lethargic and unable to answer questions currently. CM/SW to f/u when pt more alert. PCP: Still listed as Lula Butler who is a set up operator and pt was provided a list of local in-network PCP's during last admission. Specialists: salima Galindo Preferred [facility]acy: [facility] Insurance: Medicaid, last visit was [facility] as [facility] medicaid Prescription Benefit: Medicaid Living Will/HPOA: Pt does not have LW/HPOA listed on file at [facility]. LNOK: Ines Carlton, grandmother Living Arrangements: Pt had been living with grandmother, grandfather, mother, and younger brother in a mobile home. Per previous notes, home was deplorable with cockroaches, possibly bed bugs and holes in floor. This is why [facility] refused to go out any longer. Transportation: Family transports or pt can also use Medicaid for transportation. DME/HHC: Pt has a cane and glucometer/supplies. Pt has had [facility] in the past and has also been to [facility] earlier this year for wound care. CM to follow for further discharge planning/needs. Plan: TBD, pending clinical course. [place] VERONA FONTANEZ
[2021-03-18 12:00] LABS: Pathologist Review Reviewed
[2021-03-18 12:51] LABS: Bedside Glucose 259 mg/dL (70-110)
--- NOTE | 2021-03-18 12:55 | PN.HOSP_ITS ---
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 Was found unresponsive in the bathroom. ABG shows pH 6.7, PCO2 11, PO2 157, anion gap 23, bicarb 5 Currently patient on IV fluid normal saline at 150 mL and bicarb drip and continuous insulin infusion. Patient is still lethargic and obtunded. He hardly opens side and closes. DKA, type 1 diabetes mellitus most probably due to noncompliance Metabolic encephalopathy due to DKA
[2021-03-18 13:58] LABS: Anion Gap 18 (5-15); BUN 17 mg/dL (7-18); BUN/Creat Ratio 22.1 RATIO (10-20); Calcium,Total 8.6 mg/dL (8.5-10.1); Chloride 115 mmol/L (98-107); Creatinine, Serum 0.77 mg/dL (0.70-1.30); EST Glomerular Filtration Rate 137 mL/min (>60); Est Glom Filt Rate - Afr Amer 166 mL/min (>60); Estimated Creatinine Clearance 147.19 ml/min; Glucose 215 mg/dL (74-106); Potassium 3.5 mmol/L (3.5-5.1); Sodium Level 140 mmol/L (136-145)
[2021-03-18] MEDS: Dext 5%-0.45% NS 1,000 ML 150 ML IV (14:05)
[2021-03-18 14:41] LABS: Bedside Glucose 207 mg/dL (70-110)
[2021-03-18 15:16] LABS: Bedside Glucose 203 mg/dL (70-110)
[2021-03-18] MEDS: Lactated Ringers 1,000 ML 999 ML IV (16:20)
[2021-03-18] MEDS: Potassium Chloride Oral Tablet 20 MEQ 40 MEQ PO (16:33)
[2021-03-18 16:58] LABS: Anion Gap 14 (5-15); BUN 16 mg/dL (7-18); BUN/Creat Ratio 18.8 RATIO (10-20); Calcium,Total 8.8 mg/dL (8.5-10.1); Chloride 117 mmol/L (98-107); Creatinine, Serum 0.85 mg/dL (0.70-1.30); EST Glomerular Filtration Rate 122 mL/min (>60); Est Glom Filt Rate - Afr Amer 147 mL/min (>60); Estimated Creatinine Clearance 133.33 ml/min; Glucose 216 mg/dL (74-106); Potassium 3.5 mmol/L (3.5-5.1); Sodium Level 140 mmol/L (136-145)
[2021-03-18 18:10] LABS: Bedside Glucose 188 mg/dL (70-110)
--- NOTE | 2021-03-18 18:43 | NURSING ---
pt pulled giron catheter out at noon. He has been able to use the urinal.
[2021-03-18 21:42] LABS: Anion Gap 12 (5-15); BUN 14 mg/dL (7-18); BUN/Creat Ratio 15.6 RATIO (10-20); Calcium,Total 8.4 mg/dL (8.5-10.1); Chloride 115 mmol/L (98-107); EST Glomerular Filtration Rate 114 mL/min (>60); Est Glom Filt Rate - Afr Amer 138 mL/min (>60); Estimated Creatinine Clearance 125.93 ml/min; Glucose 293 mg/dL (74-106); Potassium 3.5 mmol/L (3.5-5.1); Sodium Level 139 mmol/L (136-145)
[2021-03-18 21:45] LABS: Bedside Glucose 269 mg/dL (70-110)
[2021-03-18 21:45] LABS: Bedside Glucose 272 mg/dL (70-110)
[2021-03-18 22:50] LABS: Bedside Glucose 312 mg/dL (70-110)
[2021-03-18 22:50] LABS: Bedside Glucose 291 mg/dL (70-110)
[2021-03-19] VITALS (17 sets, daily range): BP systolic 94–116; BP diastolic 55–80; PULSE 120–130; RESP 16–22; TEMP 36.8–37.8; O2SAT 92–100
[2021-03-19] LABS: Bedside Glucose 232 mg/dL (70-110)
[2021-03-19 04:37] LABS: Absolute Lymphocyte Count 0.81 X10^3/uL (0.83-4.51); Absolute Neutrophil Count 6.3 X10^3/uL (2.0-7.7); Basophil# 0.01 X10^3/uL; Basophil% 0.1 % (0-1); Eosinophil# 0.07 X10^3/uL; Eosinophils% 0.9 % (0-5); Hematocrit 40.9 % (40-54); Hemoglobin 15.1 g/dL (13.0-16.5); Lymphocyte # 0.81 X10^3/ul (0.83-4.51); Lymphocyte % 10.2 % (19-41); Mean Corp Hgb Conc 36.9 g/dL (32-36); Mean Corpuscular Hgb 28.7 pg (27.0-32.0); Mean Corpuscular Volume 77.8 fL (80-94); Mean Platelet Vol. 9.3 fl (6.2-12.0); Monocyte# 0.66 X10^3/uL; Monocyte% 8.3 % (0-10); NRBC Flagged by Analyzer 0 % (0-5); Neutrophil # 6.32 X10^3/uL (2.7-7.7); Neutrophil % 79.7 % (47-70); Platelet Count 312 K/mm3 (150-450); RBC Distribution Width CV 15.5 % (11.6-14.6); RBC Distribution Width SD 42.4 fl (35.1-43.9); Red Blood Count 5.26 M/mm3 (4.6-6.2); White Blood Count 7.9 K/mm3 (4.4-11.0)
[2021-03-19 04:54] LABS: Anion Gap 15 (5-15); BUN 12 mg/dL (7-18); BUN/Creat Ratio 14.8 RATIO (10-20); Chloride 113 mmol/L (98-107); Creatinine, Serum 0.81 mg/dL (0.70-1.30); EST Glomerular Filtration Rate 129 mL/min (>60); Est Glom Filt Rate - Afr Amer 156 mL/min (>60); Estimated Creatinine Clearance 139.92 ml/min; Glucose 241 mg/dL (74-106); Magnesium 1.7 mg/dL (1.6-2.6); Phosphorus 1.9 mg/dL (2.5-4.9); Sodium Level 140 mmol/L (136-145)
--- NOTE | 2021-03-19 06:11 | PCM.PN.INT ---
Subjective Subjective: The patient was seen and examined at the bedside this morning. Events from the last 24 hours have been reviewed. The patient is currently afebrile, hemodynamically stable and maintaining appropriate oxygen saturations on room air. The patient's white count has normalized. Potassium is low at 3.0. Anion gap remains closed. Phosphorus was low at 1.9. The patient's continuous insulin infusion was discontinued at midnight. Objective Data Objective Data The patient's most recent lab work, culture data and imaging studies have all been personally reviewed. Vital Signs: Vital Signs Temp Pulse Resp BP Pulse Ox 98.2 F 128 H 18 98/63 100 03/19/21 04:00 03/19/21 05:00 03/19/21 05:00 03/19/21 05:00 03/19/21 05:00 Oxygen Flow Rate (L/min) 2 Oxygen Delivery Method Room Air Weight: 149 lb 14.629 oz Body Mass Index (BMI) 22.1 Finger Stick Blood Glucose 291 Intake & Output: Intake and Output for Last 24 Hours 03/17/21 03/18/21 03/19/21 23:59 23:59 23:59 Intake Total 5968.04 / 6969.26 1001.22 / 1001.22 Output Total 5625 / 5625 600 / 600 Balance 343.04 / 1344.26 401.22 / 401.22 Lab / Micro Data Attestation: I reviewed the patient's lab results. Result Diagrams: 03/19/21 04:30 03/19/21 14:45 Labs: Laboratory Results - last 24 hr 03/18/21 03/18/21 03/18/21 05:10 05:10 06:35 WBC RBC Hgb Hct MCV MCH MCHC RDW Std Deviation RDW Coeff of Rabia Plt Count MPV Immature Gran % (Auto) Neut % (Auto) Lymph % (Auto) [place] % (Auto) Eos % (Auto) Baso % (Auto) Absolute Neuts (auto) Absolute Lymphs (auto) Nucleated RBC % Diff Path Review Reviewed Sodium Potassium Chloride Carbon Dioxide Anion Gap BUN Creatinine Estim Creat Clear Calc Est GFR (MDRD) Af Amer Est GFR (MDRD) Non-Af BUN/Creatinine Ratio Glucose Hemoglobin A1c Serum Osmolality 328 H Calcium Phosphorus Magnesium POC Glucose > 500 H* 03/18/21 03/18/21 03/18/21 06:50 08:06 08:50 WBC RBC Hgb Hct MCV MCH MCHC RDW Std Deviation RDW Coeff of Rabia Plt Count MPV Immature Gran % (Auto) Neut % (Auto) Lymph % (Auto) [place] % (Auto) Eos % (Auto) Baso % (Auto) Absolute Neuts (auto) Absolute Lymphs (auto) Nucleated RBC % Diff Path Review Sodium 131 L 132 L Potassium 4.5 4.9 Chloride 103 108 H Carbon Dioxide 5.0 L* 4.0 L* Anion Gap 23 H 20 H BUN 16 17 Creatinine 1.03 1.03 Estim Creat Clear Calc 110.03 110.03 Est GFR (MDRD) Af Amer 118 118 Est GFR (MDRD) Non-Af 98 98 BUN/Creatinine Ratio 15.5 16.5 Glucose 583 H* 503 H* Hemoglobin A1c Serum Osmolality Calcium 7.6 L 8.1 L Phosphorus 3.3 Magnesium 2.4 POC Glucose > 500 H* 03/18/21 03/18/21 03/18/21 08:50 10:09 11:14 WBC RBC Hgb Hct MCV MCH MCHC RDW Std Deviation RDW Coeff of Rabia Plt Count MPV Immature Gran % (Auto) Neut % (Auto) Lymph % (Auto) [place] % (Auto) Eos % (Auto) Baso % (Auto) Absolute Neuts (auto) Absolute Lymphs (auto) Nucleated RBC % Diff Path Review Sodium Potassium Chloride Carbon Dioxide Anion Gap BUN Creatinine Estim Creat Clear Calc Est GFR (MDRD) Af Amer Est GFR (MDRD) Non-Af BUN/Creatinine Ratio Glucose Hemoglobin A1c 11.2 H Serum Osmolality Calcium Phosphorus Magnesium POC Glucose 393 H 338 H 03/18/21 03/18/21 03/18/21 12:42 13:30 13:51 WBC RBC Hgb Hct MCV MCH MCHC RDW Std Deviation RDW Coeff of Rabia Plt Count MPV Immature Gran % (Auto) Neut % (Auto) Lymph % (Auto) [place] % (Auto) Eos % (Auto) Baso % (Auto) Absolute Neuts (auto) Absolute Lymphs (auto) Nucleated RBC % Diff Path Review Sodium 140 Potassium 3.5 Chloride 115 H Carbon Dioxide 7.0 L* Anion Gap 18 H BUN 17 Creatinine 0.77 Estim Creat Clear Calc 147.19 Est GFR (MDRD) Af Amer 166 Est GFR (MDRD) Non-Af 137 BUN/Creatinine Ratio 22.1 H Glucose 215 H Hemoglobin A1c Serum Osmolality Calcium 8.6 Phosphorus Magnesium POC Glucose 259 H 207 H 03/18/21 03/18/21 03/18/21 15:10 16:15 18:03 WBC RBC Hgb Hct MCV MCH MCHC RDW Std Deviation RDW Coeff of Rabia Plt Count MPV Immature Gran % (Auto) Neut % (Auto) Lymph % (Auto) [place] % (Auto) Eos % (Auto) Baso % (Auto) Absolute Neuts (auto) Absolute Lymphs (auto) Nucleated RBC % Diff Path Review Sodium 140 Potassium 3.5 Chloride 117 H Carbon Dioxide 9.0 L* Anion Gap 14 BUN 16 Creatinine 0.85 Estim Creat Clear Calc 133.33 Est GFR (MDRD) Af Amer 147 Est GFR (MDRD) Non-Af 122 BUN/Creatinine Ratio 18.8 Glucose 216 H Hemoglobin A1c Serum Osmolality Calcium 8.8 Phosphorus Magnesium POC Glucose 203 H 188 H 03/18/21 03/18/21 03/18/21 19:44 20:38 20:50 WBC RBC Hgb Hct MCV MCH MCHC RDW Std Deviation RDW Coeff of Rabia Plt Count MPV Immature Gran % (Auto) Neut % (Auto) Lymph % (Auto) [place] % (Auto) Eos % (Auto) Baso % (Auto) Absolute Neuts (auto) Absolute Lymphs (auto) Nucleated RBC % Diff Path Review Sodium 139 Potassium 3.5 Chloride 115 H Carbon Dioxide 12.0 L Anion Gap 12 BUN 14 Creatinine 0.90 Estim Creat Clear Calc 125.93 Est GFR (MDRD) Af Amer 138 Est GFR (MDRD) Non-Af 114 BUN/Creatinine Ratio 15.6 Glucose 293 H Hemoglobin A1c Serum Osmolality Calcium 8.4 L Phosphorus Magnesium POC Glucose 269 H 272 H 03/18/21 03/18/21 03/18/21 21:44 22:42 23:53 WBC RBC Hgb Hct MCV MCH MCHC RDW Std Deviation RDW Coeff of Rabia Plt Count MPV Immature Gran % (Auto) Neut % (Auto) Lymph % (Auto) [place] % (Auto) Eos % (Auto) Baso % (Auto) Absolute Neuts (auto) Absolute Lymphs (auto) Nucleated RBC % Diff Path Review Sodium Potassium Chloride Carbon Dioxide Anion Gap BUN Creatinine Estim Creat Clear Calc Est GFR (MDRD) Af Amer Est GFR (MDRD) Non-Af BUN/Creatinine Ratio Glucose Hemoglobin A1c Serum Osmolality Calcium Phosphorus Magnesium POC Glucose 312 H 291 H 232 H 03/19/21 03/19/21 04:30 04:30 WBC 7.9 RBC 5.26 Hgb 15.1 Hct 40.9 MCV 77.8 L D MCH 28.7 MCHC 36.9 H D RDW Std Deviation 42.4 RDW Coeff of Rabia 15.5 H Plt Count 312 MPV 9.3 Immature Gran % (Auto) 0.800 Neut % (Auto) 79.7 H Lymph % (Auto) 10.2 L [place] % (Auto) 8.3 Eos % (Auto) 0.9 Baso % (Auto) 0.1 Absolute Neuts (auto) 6.3 Absolute Lymphs (auto) 0.81 L Nucleated RBC % 0 [address] Review Sodium 140 Potassium 3.0 L Chloride 113 H Carbon Dioxide 12.0 L Anion Gap 15 BUN 12 Creatinine 0.81 Estim Creat Clear Calc 139.92 Est GFR (MDRD) Af Amer 156 Est GFR (MDRD) Non-Af 129 BUN/Creatinine Ratio 14.8 Glucose 241 H Hemoglobin A1c Serum Osmolality Calcium 9.0 Phosphorus 1.9 L Magnesium 1.7 POC Glucose Physical Exam Const alert and no apparent distress General Appearance: cooperative and lethargic Nutritional Appearance: thin HEENT normocephalic and head/scalp atraumatic Mouth: dry mucous membranes Teeth and Gingiva: poor dentition Eyes PERRL, EOMs intact bilaterally and conjunctivae normal Resp normal respiratory effort Auscultation: Negative for rales, rhonchi or wheezes Cardio S1 normal heart sound and S2 normal heart sound Rate: tachycardic GI normal to inspection, nondistended, normoactive bowel sounds Extremity no clubbing, cyanosis or edema Skin no rashes or lesions noted Neuro CN's II-XII intact bilaterally, moves all extremities and no focal motor deficits Psych Mood & Affect: flat affect Assessment & Plan Assessment/Plan (1) DKA (diabetic ketoacidoses): QUALIFIERS: Diabetes mellitus complication detail: with coma Diabetes mellitus type: type 1 Qualified Code(s): E10.11 - Type 1 diabetes mellitus with ketoacidosis with coma (2) Metabolic encephalopathy: PLAN: RECOMMENDATIONS: 1. Basal and sliding scale insulin coverage per hospitalist. 2. Continue to monitor and replete electrolytes as needed. 3. Diabetic education. 4. Encourage incentive spirometer use and mobilize patient as tolerated. 5. Will sign off from a critical care perspective. IMPRESSIONS: 1. Diabetic ketoacidosis Resolved. Most likely secondary to outpatient noncompliance. The patient has a hemoglobin A1c of greater than 11. DKA subsequently resolved with supplemental IV fluid hydration and insulin infusion. The patient will be transitioned to basal and sliding scale coverage per hospitalist. We will continue to monitor and replete electrolytes as needed. 2. Encephalopathy Resolved. Likely metabolic in etiology. Mentation improved with correction of the patient's underlying metabolic derangements. Continue management as noted above. 3. Hypokalemia/hypophosphatemia Additional electrolyte repletion per protocol. Recheck levels in the morning. This note was generated with [employer] dictation software. It may contain incorrect words, spelling, and punctuation that were not noted in checking the note before signing. Visit Charges Inpatient E&M: 14347 Subs Hosp L2
[2021-03-19] MEDS: Potassium Chloride 10mEq/100mL 10 MEQ/100 ML IV.SOLN. 100 MEQ IV BOLUS ×4 (06:48→11:36)
--- NOTE | 2021-03-19 07:59 | PCM.PN.HOSP ---
Subjective Subjective: Patient is awake and able to give history although feels tired and weak. Denies history of fever, dysuria, cough cold or other infectious symptoms. He states being compliant to insulin treatment Lantus insulin and Humalog sliding scale at home. Exact precipitating factor of DKA unclear. Objective Data Objective Data Vital Signs: Vital Signs Temp Pulse Resp BP Pulse Ox 98.2 F 124 H 18 99/72 100 03/19/21 04:00 03/19/21 07:01 03/19/21 06:00 03/19/21 06:00 03/19/21 06:00 Oxygen Flow Rate (L/min) 2 Oxygen Delivery Method Room Air Weight: 149 lb 7.574 oz Body Mass Index (BMI) 22.1 Finger Stick Blood Glucose 291 Intake & Output: Intake and Output for Last 24 Hours 03/17/21 03/18/21 03/19/21 23:59 23:59 23:59 Intake Total 5968.04 / 6969.26 1001.22 / 1001.22 Output Total 5625 / 5625 1000 / 1000 Balance 343.04 / 1344.26 1.22 / 1.22 Lab / Micro Data Result Diagrams: 03/19/21 04:30 03/19/21 04:30 Labs: Laboratory Results - last 24 hr 03/18/21 03/18/21 03/18/21 05:10 08:06 08:50 WBC RBC Hgb Hct MCV MCH MCHC RDW Std Deviation RDW Coeff of Rabia Plt Count MPV Immature Gran % (Auto) Neut % (Auto) Lymph % (Auto) Andrews % (Auto) Eos % (Auto) Baso % (Auto) Absolute Neuts (auto) Absolute Lymphs (auto) Nucleated RBC % Diff Path Review Reviewed Sodium 132 L Potassium 4.9 Chloride 108 H Carbon Dioxide 4.0 L* Anion Gap 20 H BUN 17 Creatinine 1.03 Estim Creat Clear Calc 110.03 Est GFR (MDRD) Af Amer 118 Est GFR (MDRD) Non-Af 98 BUN/Creatinine Ratio 16.5 Glucose 503 H* Hemoglobin A1c Calcium 8.1 L Phosphorus 3.3 Magnesium 2.4 POC Glucose > 500 H* 03/18/21 03/18/21 03/18/21 08:50 10:09 11:14 WBC RBC Hgb Hct MCV MCH MCHC RDW Std Deviation RDW Coeff of Rabia Plt Count MPV Immature Gran % (Auto) Neut % (Auto) Lymph % (Auto) Andrews % (Auto) Eos % (Auto) Baso % (Auto) Absolute Neuts (auto) Absolute Lymphs (auto) Nucleated RBC % Diff Path Review Sodium Potassium Chloride Carbon Dioxide Anion Gap BUN Creatinine Estim Creat Clear Calc Est GFR (MDRD) Af Amer Est GFR (MDRD) Non-Af BUN/Creatinine Ratio Glucose Hemoglobin A1c 11.2 H Calcium Phosphorus Magnesium POC Glucose 393 H 338 H 03/18/21 03/18/21 03/18/21 12:42 13:30 13:51 WBC RBC Hgb Hct MCV MCH MCHC RDW Std Deviation RDW Coeff of Rabia Plt Count MPV Immature Gran % (Auto) Neut % (Auto) Lymph % (Auto) Andrews % (Auto) Eos % (Auto) Baso % (Auto) Absolute Neuts (auto) Absolute Lymphs (auto) Nucleated RBC % Diff Path Review Sodium 140 Potassium 3.5 Chloride 115 H Carbon Dioxide 7.0 L* Anion Gap 18 H BUN 17 Creatinine 0.77 Estim Creat Clear Calc 147.19 Est GFR (MDRD) Af Amer 166 Est GFR (MDRD) Non-Af 137 BUN/Creatinine Ratio 22.1 H Glucose 215 H Hemoglobin A1c Calcium 8.6 Phosphorus Magnesium POC Glucose 259 H 207 H 03/18/21 03/18/21 03/18/21 15:10 16:15 18:03 WBC RBC Hgb Hct MCV MCH MCHC RDW Std Deviation RDW Coeff of Rabia Plt Count MPV Immature Gran % (Auto) Neut % (Auto) Lymph % (Auto) Andrews % (Auto) Eos % (Auto) Baso % (Auto) Absolute Neuts (auto) Absolute Lymphs (auto) Nucleated RBC % Diff Path Review Sodium 140 Potassium 3.5 Chloride 117 H Carbon Dioxide 9.0 L* Anion Gap 14 BUN 16 Creatinine 0.85 Estim Creat Clear Calc 133.33 Est GFR (MDRD) Af Amer 147 Est GFR (MDRD) Non-Af 122 BUN/Creatinine Ratio 18.8 Glucose 216 H Hemoglobin A1c Calcium 8.8 Phosphorus Magnesium POC Glucose 203 H 188 H 03/18/21 03/18/21 03/18/21 19:44 20:38 20:50 WBC RBC Hgb Hct MCV MCH MCHC RDW Std Deviation RDW Coeff of Rabia Plt Count MPV Immature Gran % (Auto) Neut % (Auto) Lymph % (Auto) Andrews % (Auto) Eos % (Auto) Baso % (Auto) Absolute Neuts (auto) Absolute Lymphs (auto) Nucleated RBC % Diff Path Review Sodium 139 Potassium 3.5 Chloride 115 H Carbon Dioxide 12.0 L Anion Gap 12 BUN 14 Creatinine 0.90 Estim Creat Clear Calc 125.93 Est GFR (MDRD) Af Amer 138 Est GFR (MDRD) Non-Af 114 BUN/Creatinine Ratio 15.6 Glucose 293 H Hemoglobin A1c Calcium 8.4 L Phosphorus Magnesium POC Glucose 269 H 272 H 03/18/21 03/18/21 03/18/21 21:44 22:42 23:53 WBC RBC Hgb Hct MCV MCH MCHC RDW Std Deviation RDW Coeff of Rabia Plt Count MPV Immature Gran % (Auto) Neut % (Auto) Lymph % (Auto) Andrews % (Auto) Eos % (Auto) Baso % (Auto) Absolute Neuts (auto) Absolute Lymphs (auto) Nucleated RBC % Diff Path Review Sodium Potassium Chloride Carbon Dioxide Anion Gap BUN Creatinine Estim Creat Clear Calc Est GFR (MDRD) Af Amer Est GFR (MDRD) Non-Af BUN/Creatinine Ratio Glucose Hemoglobin A1c Calcium Phosphorus Magnesium POC Glucose 312 H 291 H 232 H 03/19/21 03/19/21 04:30 04:30 WBC 7.9 RBC 5.26 Hgb 15.1 Hct 40.9 MCV 77.8 L D MCH 28.7 MCHC 36.9 H D RDW Std Deviation 42.4 RDW Coeff of Rabia 15.5 H Plt Count 312 MPV 9.3 Immature Gran % (Auto) 0.800 Neut % (Auto) 79.7 H Lymph % (Auto) 10.2 L Andrews % (Auto) 8.3 Eos % (Auto) 0.9 Baso % (Auto) 0.1 Absolute Neuts (auto) 6.3 Absolute Lymphs (auto) 0.81 L Nucleated RBC % 0 [address] Review Sodium 140 Potassium 3.0 L Chloride 113 H Carbon Dioxide 12.0 L Anion Gap 15 BUN 12 Creatinine 0.81 Estim Creat Clear Calc 139.92 Est GFR (MDRD) Af Amer 156 Est GFR (MDRD) Non-Af 129 BUN/Creatinine Ratio 14.8 Glucose 241 H Hemoglobin A1c Calcium 9.0 Phosphorus 1.9 L Magnesium 1.7 POC Glucose Physical Exam Narrative Patient is still tachycardic and blood pressure 99/72. Denies dizziness. Physical exam General: Awake, Oriented x3, Cooperative HEENT: Atraumatic, PERRLA, EOMI, Normocephalic Oral: No Gingival or Mucosal Lesions/ Ulcerations Neck: Supple, No JVD, Negative Carotid Bruits Lungs: Air entry equal in bilateral lung bases. No crepitation/rhonchi Cardiovascular: Regular rate, Regular Rhythm, Normal S1, Normal S2, No murmurs Abdomen: Bowel Sounds Present, Soft, Non Tender, Non-Distended : No renal angle tenderness. No suprapubic tenderness. Extremities: No edema, Capillary Refill Less than 3 Seconds Skin: No rashes, No breakdown Musculoskeletal: No Tenderness to Palpation of Joints or Extremities Neurological: Cranial nerves II-XII grossly intact, Deep Tendon Reflexes 2+/4 and Symmetrical, Neuro grossly intact Psych/Mental Status: Increased response time. Assessment & Plan Assessment/Plan (1) DKA (diabetic ketoacidoses): QUALIFIERS: Diabetes mellitus complication detail: with coma Diabetes mellitus type: type 1 Qualified Code(s): E10.11 - Type 1 diabetes mellitus with ketoacidosis with coma (2) Metabolic encephalopathy: PLAN: 1. DKA with type 1 diabetes mellitus: Exact precipitating cause of DKA unclear. Patient denies fever or UTI or pneumonia-like symptoms. A1c 11.2%. Lantus and Humalog insulin With sliding scale insulin. Anion gap is closed. DKA resolved. 2. Hypokalemia and hypophosphatemia: Electrolytes are getting replaced. 3. Metabolic acute encephalopathy secondary to DKA: Improving. Visit Charges Inpatient E&M: 58897 Subs Hosp L2
[2021-03-19] MEDS: Potassium Chloride Oral Tablet 20 MEQ 40 MEQ PO (08:03)
[2021-03-19] MEDS: Insulin Lispro 100 UNIT/ML INSULN.PEN SC ×4 (08:05→21:37)
[2021-03-19 08:16] LABS: Bedside Glucose 254 mg/dL (70-110)
[2021-03-19] MEDS: Insulin Lispro 100 UNIT/ML INSULN.PEN 8 UNIT SC ×3 (12:16→21:36)
[2021-03-19 12:20] LABS: Bedside Glucose 305 mg/dL (70-110)
[2021-03-19 15:28] LABS: Anion Gap 12 (5-15); BUN 10 mg/dL (7-18); BUN/Creat Ratio 15.4 RATIO (10-20); Calcium,Total 8.6 mg/dL (8.5-10.1); Chloride 108 mmol/L (98-107); Creatinine, Serum 0.65 mg/dL (0.70-1.30); EST Glomerular Filtration Rate 166 mL/min (>60); Est Glom Filt Rate - Afr Amer 201 mL/min (>60); Estimated Creatinine Clearance 173.85 ml/min; Glucose 263 mg/dL (74-106); Phosphorus 1.8 mg/dL (2.5-4.9); Potassium 3.5 mmol/L (3.5-5.1); Sodium Level 132 mmol/L (136-145)
[2021-03-19 17:21] LABS: Bedside Glucose 225 mg/dL (70-110)
[2021-03-19 21:41] LABS: Bedside Glucose 247 mg/dL (70-110)
[2021-03-20 05:46] VITALS: BP 109/56; PULSE 116; RESP 16; TEMP 37.1; O2SAT 98
[2021-03-20 07:50] LABS: Anion Gap 11 (5-15); BUN 13 mg/dL (7-18); BUN/Creat Ratio 27.3 RATIO (10-20); Calcium,Total 8.9 mg/dL (8.5-10.1); Chloride 105 mmol/L (98-107); Creatinine, Serum 0.48 mg/dL (0.70-1.30); EST Glomerular Filtration Rate 238 mL/min (>60); Est Glom Filt Rate - Afr Amer 288 mL/min (>60); Estimated Creatinine Clearance 219.39 ml/min; Glucose 206 mg/dL (74-106); Magnesium 2.1 mg/dL (1.6-2.6); Phosphorus 2.1 mg/dL (2.5-4.9); Potassium 2.6 mmol/L (3.5-5.1); Sodium Level 137 mmol/L (136-145)
[2021-03-20 08:16] LABS: Bedside Glucose 261 mg/dL (70-110)
--- NOTE | 2021-03-20 08:59 | PCM.DC ---
Discharge Instructions Diet Discharge Diet: Carb Control Diet Activity Discharge Activity: Return to Normal Activity Weight Bearing Status: Weight bearing as tolerated Dressing / Incision Call your doctor if you observe: Fever of 101 or Higher, Coldness, Increased Pain, Numbness or Tingling, Change in Color, Inability to urinate, Inability to have a bowel movement, Shortness of breath, Dizziness, Fainting spells, Swelling in the ankles, Chest pain, Prolonged hiccupping, Increased palpitations (irregular heartbeat), Calf discomfort and Uncontrolled pain Follow Up Care Test Results: Test results from this visit will be discussed in further detail at your follow-up appointment, if applicable. Discharge Plan Admission Admit Date/Time: 03/18/21 06:23 Primary Reason for Your Visit: DKA with high AG metablic acidosis Attending Provider: Tha Uribe Primary Care Provider: Tori Butler Consulting Providers: Pb Momin Instructions Patient Instructions: ED Diabetic Foot Care Discharge Orders/Prescriptions Prescriptions: New insulin lispro [Humalog KwikPen Insulin] 100 unit/mL Insulin Pen See Protocol unit subcut ACHS Qty: 0 RF: 0 potassium chloride 20 mEq tablet,ER particles/crystals 40 meq PO DAILY 5 Days Qty: 10 RF: 0 Continued insulin lispro 100 unit/mL Insulin Pen 10 unit subcut ACHS Qty: 5 RF: 0 Changed Lantus Solostar U-100 Insulin 100 unit/mL (3 mL) Insulin Pen 25 unit subcut QHS Qty: 15 RF: 0 Referrals / Follow Up: Tori Butler MD [Primary Care Provider] - Disposition Disposition (needs filled in before D/C Order can be placed): Home, self care
[2021-03-20] MEDS: Insulin Lispro 100 UNIT/ML INSULN.PEN SC ×2 (09:11→12:20)
[2021-03-20] MEDS: Insulin Lispro 100 UNIT/ML INSULN.PEN 10 UNIT SC ×2 (09:12→12:20)
[2021-03-20] MEDS: Potassium Chloride Oral Tablet 20 MEQ 40 MEQ PO (09:14)
--- NOTE | 2021-03-20 09:16 | DS.PCM_ITS ---
Providers Date of Admission: 03/18/21 Primary Care Physician: Dr. Tori Butler MD Consultations 03/18/21 08:19 Consult: Developer Programmer / Pulmonary Medicine Routine Consulting Provider: Pb Momin Reason for Consult: critical care EMERGENT Consult: Yes MD Notified: Yes Date Notified:: 03/18/21 Time Notified: 06:24 Method of Notification: Text Reason For Visit: DKA Diagnosis Discharge Diagnosis (1) DKA (diabetic ketoacidoses): Status: Acute Code(s): E11.10 - Type 2 diabetes mellitus with ketoacidosis without coma Qualifiers: Diabetes mellitus complication detail: with coma Diabetes mellitus type: type 1 Qualified Code(s): E10.11 - Type 1 diabetes mellitus with ketoacidosis with coma (2) Metabolic encephalopathy: Status: Acute Code(s): G93.41 - Metabolic encephalopathy Medications at Discharge Home Medications Lantus Solostar U-100 Insulin 25 unit SUBCUT QHS #15 ml 03/20/21 insulin lispro 10 unit SUBCUT ACHS #5 ml 03/20/21 insulin lispro [Humalog KwikPen Insulin] See Protocol SUBCUT ACHS #0 ml 03/20/21 potassium chloride 40 meq PO DAILY 5 Days #10 tab 03/20/21 Hospital Course Summary of Care Provided Hospital Course: This is a 20-year-old gentleman with history of type 1 diabetes mellitus was admitted encephalopathic, unresponsive state in bathroom floor. Patient has a history of frequent episodes of DKA and was admitted in ICU with DKA, high anion gap metabolic acidosis, pH 6.7 on 2 L of oxygen. Patient remained unconscious unresponsive for 1 day and was managed with IV fluid, bicarb drip and insulin drip in ICU. 1. DKA with type 1 diabetes mellitus: Probably related to noncompliance and recent surgery for which he had wound VAC in left leg and was removed as an outpatient. Patient was hypothermic, temperature 84.1 ?F at time of admission. Patient denies fever or UTI or pneumonia-like symptoms. A1c 11.2%. Lantus and Humalog insulin With sliding scale insulin. Anion gap is closed. DKA resolved. Patient has enough supplies of Lantus and lispro insulin. Extra refills were given. 2. Hypokalemia and hypophosphatemia: Electrolytes are getting replaced. Patient had IV potassium phosphate. Patient given a prescription for K. Dur 40 M EQ daily for 5 days. Advised follow-up BMP in 1 week with PCP. 3. Metabolic acute encephalopathy secondary to DKA and hypothermia: Improved and resolved. Discharge medication reconciliation done. Discharge follow-up instructions completed. Discharge process discussed with the patient and all questions were answered to patient's satisfaction. Advised to follow-up PCP in 1 week. Total time spent, exact 35 minutes on discharge meds reconciliation, examination, coordination of care with nurses and ancillary staff, review of imaging and blood test and discussion with the patient on follow-up instructions Physical Exam Narrative Patient is awake and alert. Heart rate is better controlled currently in 110s. Blood pressure 109/56. Patient has good appetite, denies nausea, vomiting, abdominal pain. Physical exam General: Awake, Oriented x3, Cooperative HEENT: Atraumatic, PERRLA, EOMI, Normocephalic Oral: No Gingival or Mucosal Lesions/ Ulcerations Neck: Supple, No JVD, Negative Carotid Bruits Lungs: Air entry equal in bilateral lung bases. No crepitation/rhonchi Cardiovascular: Regular rate, Regular Rhythm, Normal S1, Normal S2, No murmurs Abdomen: Bowel Sounds Present, Soft, Non Tender, Non-Distended : No renal angle tenderness. No suprapubic tenderness. Extremities: No edema, Capillary Refill Less than 3 Seconds Skin: No rashes, No breakdown Musculoskeletal: No Tenderness to Palpation of Joints or Extremities Neurological: Cranial nerves II-XII grossly intact, Deep Tendon Reflexes 2+/4 and Symmetrical, Neuro grossly intact Psych/Mental Status: Increased response time. ABG / Lab / Microbiology Data Result Diagrams: 03/19/21 04:30 03/20/21 14:25 Laboratory: Laboratory Results - last 24 hr 03/19/21 03/19/21 03/19/21 12:13 14:45 17:02 Sodium 132 L Potassium 3.5 Chloride 108 H Carbon Dioxide 12.0 L Anion Gap 12 BUN 10 Creatinine 0.65 L Estim Creat Clear Calc 173.85 Est GFR (MDRD) Af Amer 201 Est GFR (MDRD) Non-Af 166 BUN/Creatinine Ratio 15.4 Glucose 263 H Calcium 8.6 Phosphorus 1.8 L Magnesium POC Glucose 305 H 225 H 03/19/21 03/20/21 03/20/21 21:33 06:14 08:09 Sodium 137 Potassium 2.6 L* Chloride 105 Carbon Dioxide 21.0 Anion Gap 11 BUN 13 Creatinine 0.48 L Estim Creat Clear Calc 219.39 Est GFR (MDRD) Af Amer 288 Est GFR (MDRD) Non-Af 238 BUN/Creatinine Ratio 27.3 H Glucose 206 H Calcium 8.9 Phosphorus 2.1 L Magnesium 2.1 POC Glucose 247 H 261 H D/C Instructions Discharge Diet: Carb Control Diet Discharge Activity: Return to Normal Activity Weight Bearing Status: Weight bearing as tolerated Call your doctor if you observe: Fever of 101 or Higher, Coldness, Increased Pain, Numbness or Tingling, Change in Color, Inability to urinate, Inability to have a bowel movement, Shortness of breath, Dizziness, Fainting spells, Swelling in the ankles, Chest pain, Prolonged hiccupping, Increased palpitations (irregular heartbeat), Calf discomfort and Uncontrolled pain Meaningful Use Info Meaningful Use Diagnoses (Choose all that apply): None applicable Discharge Plan Admission Admit Date/Time: 03/18/21 06:23 Primary Reason for Your Visit: DKA with high AG metablic acidosis Attending Provider: Tha Uribe Primary Care Provider: Tori Butler Consulting Providers: Pb Momin Instructions Patient Instructions: ED Diabetic Foot Care Additional Instructions / Restrictions: Follow-up labs BMP with phosphorus to be ordered as an outpatient with PCP in 1 week. Discharge Orders/Prescriptions Prescriptions: New insulin lispro [Humalog KwikPen Insulin] 100 unit/mL Insulin Pen See Protocol unit subcut ACHS Qty: 0 RF: 0 potassium chloride 20 mEq tablet,ER particles/crystals 40 meq PO DAILY 5 Days Qty: 10 RF: 0 Continued insulin lispro 100 unit/mL Insulin Pen 10 unit subcut ACHS Qty: 5 RF: 0 Changed Lantus Solostar U-100 Insulin 100 unit/mL (3 mL) Insulin Pen 25 unit subcut QHS Qty: 15 RF: 0 Referrals / Follow Up: Tori Butler MD [Primary Care Provider] - Disposition Disposition (needs filled in before D/C Order can be placed): Home, self care Visit Charges Inpatient E&M: 37747 Disch Hosp
[2021-03-20] MEDS: 0.9% Saline Lock 10 ML Syringe IV (09:21)
[2021-03-20 10:55] VITALS: PULSE 128
[2021-03-20 12:05] LABS: Bedside Glucose 359 mg/dL (70-110)
[2021-03-20 15:09] LABS: Phosphorus 2.6 mg/dL (2.5-4.9); Potassium 3.2 mmol/L (3.5-5.1)
[2021-03-20 16:09] VITALS: BP 100/45; PULSE 106; RESP 18; TEMP 36.8; O2SAT 98
== END 2021-03-20 17:35 | disposition home or self-care (01) | DRG 420 ==
LOC: ED 05:11 → ICU 06:46 → MS3 03-20 09:15 → ICU 03-21 10:22 → MS3 03-21 10:22
PROVIDERS: Admitting Provider Hospitalist; Emergency Provider Emergency Medicine; PCP Pediatrics; Visit Provider Internal Medicine
DX: E10.11 Type 1 diabetes mellitus with ketoacidosis with coma (principal); G93.41 Metabolic encephalopathy; E83.39 Other disorders of phosphorus metabolism; E87.6 Hypokalemia; T68.XXXA Hypothermia, initial encounter; J45.909 Unspecified asthma, uncomplicated; L97.129 Non-pressure chronic ulcer of left thigh with unspecified severity; E10.622 Type 1 diabetes mellitus with other skin ulcer; Z79.4 Long term (current) use of insulin; Z91.19 Patient's noncompliance with other medical treatment and regimen
CPT/HCPCS: 36415; 36600; 51702; 70450; 71045; 80048; 80053; 80307; 81001; 82009; 82077; 82803; 82962; 83036; 83735; 83930; 84100; 84132; 85025; 93005; 99285; J7030; J7050; J7120; A4216; J7799

== ENCOUNTER 2021-04-04 14:00 | Outpatient (RCR) | payer MEDICAID, SELFPAY ==
[2021-03-07 21:28] VITALS: BMI 18.6
[2021-03-12 00:42] VITALS: BP 140/87; PULSE 118; RESP 16; TEMP 36.4
[2021-03-14 11:11] VITALS: BP 96/56; TEMP 36.4; BMI 18.6
--- NOTE | 2021-03-14 11:48 | PCM.WC.PN ---
History of Present Illness Date of Service: 03/14/21 Chief Complaint: None healing postsurgical wound status post abscess incision and drainage by Dr. Laura on 12/10/2020 History of Wound: Surgery 12/24/20 - Surgical preparation left posterior thigh with incision and drainage and excisional debridement nonhealing infected necrotic diabetic ulcer with abscess including necrotic muscle (276 cm2). Wound care - Theraskin #1 on February 14. Patient did not return to the wound center for a month after Theraskin was placed due to transportation issues. Although subcutaneous debridements have been performed, there is still theraskin present in the granulation tissue of the ulcer. Keramax dressing with gauze daily. SUSHIL wrap for compression. Surgical wound cultures positive for Rhizopus species, Klebsiella pneumoniae, and Anaerobic cocci. ID was consulted and he was on Doxycycline and Unasyn while hospitalized and was discharged on Augmentin and Doxycycline for an additional 5 days. Prealbumin on 12/27/20 was 10.1. Encouraged protein supplementation to help with wound healing. When he was discharged, on 12/28/20, he went to [facility]. He was readmitted to the hospital on 01/24/2021 and discharged on 01/27/2021 for DKA. I ordered a dietary consult. I am unsure if he ever followed through with meeting with them. Today he denies fever. He states his appetite is good. 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: Status: Chronic Code(s): L97.123 - Non-pressure chronic ulcer of left thigh with necrosis of muscle (2) Noncompliance: Status: Chronic Code(s): Z91.19 - Patient's noncompliance with other medical treatment and regimen (3) History of type 1 diabetes mellitus: Status: Chronic Code(s): Z86.39 - Personal history of other endocrine, nutritional and metabolic disease (4) Noncompliance with diabetes treatment: Status: Chronic Code(s): Z91.19 - Patient's noncompliance with other medical treatment and regimen (5) Psychosocial problem: Status: Chronic Code(s): Z65.9 - Problem related to unspecified psychosocial circumstances Plan: Wound care -? Theraskin #1 applied on 02/14/21 with the wound VAC. ? He did not return to the wound center after placement of the Theraskin due to transportation issues.? He stopped using the wound VAC.? Will have him send it back.? Will have him use Karamax dressings for absorption with gauze daily.? ?He no longer has home health will go into his home due to his living conditions since he was discharged from [facility].? He was just recently admitted on 01/24/2021- 01/12/21 for DKA.? I ordered a dietary consult to help him with food choices.? He states he has not heard from the dietitian.? We gave him the number for him to call.? Also reinforced this with his grandmother.? Surgical wound cultures positive for Rhizopus species, Klebsiella pneumoniae, and Anaerobic cocci. ID was consulted and he was on Doxycycline and Unasyn while hospitalized and was discharged on Augmentin and Doxycycline for an additional 5 days, which he has completed.? Follow-up in 1 week. Charges/Coding Procedures Integumentary 111xxx-113xx: [id number] Global Visit Physical Exam Const alert and oriented x3 HEENT normocephalic Head and Scalp: atraumatic Eyes PERRL Resp normal respiratory effort Cardio regular rate Extremity normal capillary refill General Extremity: Negative for edema Skin Wound Narrative: Left lateral leg ulcer with granulation tissue present. On the distal end of the ulcer there is still some theraskin that remains even after debridements. Bed of ulcer is beefy pink. Summer wound is without rashes. Neuro CN's II-XII intact bilaterally Psych Appearance: grossly normal Debridement Note Debridement Note Post-Debridement Measurements and Additional Note: Post-Debridement Measurements/Treatment WC - Nurse 2 - General Ulcer CM Notes Start: 03/14/21 11:10 Freq: Status: Active Protocol: Activity Type Activity Date Activity User E-Sign Co-Sign Detail Recorded Client Recorded Date Recorded By Document 03/14/21 11:31 ROSE [id number] 03/14/21 11:36 JF 03/14/21 11:31 Wound Center Nurse 2 1 left post thigh -Time 11:32 -Correct Patient Yes -Correct Side, Site, Position Yes -Correct Procedure Yes -Procedure Performed Yes -Type of Procedure Debridement -Clinical Debridement Subcutaneous -Tissue Removed Subcutaneous -Post Debridement (cm) - Length 10.5 -Post Debridement (cm) - Width 2.2 -Post Debridement (cm) - Depth 0.1 -Total Square (Post) (cm) 23.10 -Area of Debridement (cm) - Length 10.5 -Area of Debridement (cm) - Width 2.2 -Total Square (Area) (cm) 23.10 -Tunneling No -Undermining/Tunneling No -Circular Undermining No -Wound/Ulcer Outcome Not Healed -Ulcer Cleansing Rinsed/ Irrigated with Saline -Foul Odor after Cleansing No -Bioengineered Tissue No -Bleeding Controlled with Pressure -Offloading No -Treatment Response Procedure Tolerated Well -Debridement - Subq, 1st 20sq cm Yes -Debridement, SubQ, ea addt'l 20sq cm 1 or part thereof Pain Scale: 0-10 Numeric Is Patient Pain Free? Yes - Nurse 3 - General Ulcer D/C NN Start: 03/14/21 11:10 Freq: Status: Active Protocol: Activity Type Activity Date Activity User E-Sign Co-Sign Detail Recorded Client Recorded Date Recorded By Document 03/14/21 11:43 KRISTEN [id number] 03/14/21 11:44 DL 03/14/21 11:43 Wound Care Nurse 3 1 left post thigh -Ulcer Cleansing Rinsed/ Irrigated with Saline -Foul Odor after Cleansing No -Primary Dressing Applied Other -Other Dressing keramax -Primary Dressing Covered/Secured with Dry Gauze & Roll Gauze, Secured with Tape,Other -Other Covering abd Treatment Response Procedure Tolerated Well Pain Scale: 0-10 Numeric Is Patient Pain Free? Yes WC - Visit Discharge Discharge Condition Stable Ambulatory Status Ambulatory Transportation Private Auto Accompanied by janeth Additional Wound Wound debrided: laterl thigh Laterality: Left Type of Debridement: Excisional debridement Anesthesia Used: 5% Lidocaine Gel Depth: Down to and including healthy tissue and in the subcutaneous layer Percentage of wound debrided: 100 Instrument Used: 7mm curette Tissue Removed: Subcutaneous tissue and slough Severity: Fat Layer Exposed Amount of bleeding with debridement: Moderate Bleeding Controlled with: Pressure and Compression and gauze
[2021-03-21 11:24] VITALS: BP 112/70; PULSE 110; RESP 15; TEMP 36.6; BMI 18.6
[2021-03-21 11:40] LABS: Bedside Glucose 352 mg/dL (70-110)
--- NOTE | 2021-03-21 12:38 | PN.PCM_ITS ---
History of Present Illness Date of Service: 03/21/21 Chief Complaint: None healing postsurgical wound status post abscess incision and drainage by Dr. Laura on 12/10/2020 History of Wound: Surgery 12/24/20 - Surgical preparation left posterior thigh with incision and drainage and excisional debridement nonhealing infected necrotic diabetic ulcer with abscess including necrotic muscle (276 cm2). Wound care - Theraskin #1 on February 14. Patient did not return to the wound center for a month after Theraskin was placed due to transportation issues. Although subcutaneous debridements have been performed, there is still theraskin present in the granulation tissue of the ulcer. Keramax dressing with gauze daily. SUSHIL wrap for compression. Surgical wound cultures positive for Rhizopus species, Klebsiella pneumoniae, and Anaerobic cocci. ID was consulted and he was on Doxycycline and Unasyn while hospitalized and was discharged on Augmentin and Doxycycline which he has completed. Prealbumin on 12/27/20 was 10.1. Encouraged protein supplementation to help with wound healing. When he was discharged, on 12/28/20, he went to [facility]. He was readmitted to the hospital on 01/24/2021 and discharged on 01/27/2021 for DKA. I ordered a dietary consult. I am unsure if he ever followed through with meeting with them. He was admitted again over the weekend for DKA. Today he denies fever. He states his appetite is good. Progress of Wound: Improved. 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 Theraskin #1 applied on 02/14/21 with the wound VAC. ? He did not return to the wound center after placement of the Theraskin due to transportation issues.? He stopped using the wound VAC.? ?Will have him use Aquacel extra topped with Karamax dressings for absorption with gauze daily, after washing with soap and water daily. SUSHIL wrap to left thigh for compression.? ?He no longer has home health will go into his home due to his living conditions since he was discharged from [facility].? He was just recently admitted on 01/24/2021- 01/12/21 for DKA.? I ordered a dietary consult to help him with food choices.? He states he has not heard from the dietitian.? We gave him the number for him to call.? Also reinforced this with his grandmother.? Surgical wound cultures positive for Rhizopus species, Klebsiella pneumoniae, and Anaerobic cocci. ID was consulted and he was on Doxycycline and Unasyn while hospitalized and was discharged on Augmentin and Doxycycline which he has completed.? Follow-up in 2 weeks. Charges/Coding Procedures Integumentary [id number]: [id number] Global Visit Physical Exam Const alert; Negative for well nourished HEENT normocephalic Head and Scalp: atraumatic Eyes PERRL Resp normal respiratory effort Cardio regular rate GI non-tender Palpation: soft Extremity normal to inspection, normal capillary refill and no calf tenderness Skin Wound Narrative: Left lateral thigh ulcer is beefy pink in color. It is improving in size. Neuro CN's II-XII intact bilaterally Psych Mood & Affect: flat affect Debridement Note Debridement Note Post-Debridement Measurements and Additional Note: Post-Debridement Measurements/Treatment WC - Nurse 1 - General Ulcer Assessment Start: 03/14/21 11:10 Freq: Status: Active Protocol: POWER.SOPHIA Activity Type Activity Date Activity User E-Sign Co-Sign Detail Recorded Client Recorded Date Recorded By Document 03/14/21 11:11 KR [id number] 03/14/21 11:15 KR Edit Result 03/14/21 11:11 KR (1) [id number] 03/14/21 11:16 KR Document 03/21/21 11:24 MS [id number] 03/21/21 11:37 MS Edit Result 03/21/21 11:24 MS (2) [id number] 03/21/21 11:38 MS (1) Blood Pressure (90/60-120/80) => 96/56 L Blood Pressure Mean (mm Hg) => 69 (2) Finger Stick Blood Sugar(mg/dl) (if => 352 indicated): Blood Sugar => Done During this => Visit 03/14/21 03/21/21 11:11 11:24 WC - Today's Visit Information Type of service Follow-up Visit Follow-up Visit (Physician/LEATHER SHAVER (Physician/LEATHER SHAVER ) ) Arrival Mode Ambulatory Ambulatory Patient Identification Verified (Name & Yes Yes ) Patient Requires Transmission-Based No Precautions Safety Precautions NA Finger Stick Blood Sugar(mg/dl) (if 352 indicated): Blood Sugar Done During this Visit Height and Weight Body Mass Index (BMI) 18.6 18.6 BMI Classification Normal Normal Vital Signs Temperature (97.8 F-99.1 F) 97.6 F L 97.8 F Temperature Source Temporal Temporal Pulse Rate (60-100) 110 H Pulse Location Monitor Monitor Respiratory Rate (12-18) 15 Respiratory rate source Observation Blood Pressure (90/60-120/80) 96/56 L 112/70 Blood Pressure Mean (mm Hg) 69 84 Source Monitor Monitor Position Semi-Fowlers Sitting Blood Pressure Location Left Arm Left Arm History Since Last Visit- (Skip if this is Patient's initial visit) Have you changed medications since your No No last visit? Any new allergies or adverse reactions No No Had a fall/change in ADL's that may No No increase risk of falls Signs or symptoms of abuse and/or No No neglect since last visit Have you been in the hospital since your No Yes last visit? Has dressing in place as prescribed Yes Yes Has compression in place as prescribed N/A N/A Has offloadiing in place as prescribed N/A N/A Experienced any changes in pain level or No No management Left Footwear Regular Shoe Regular Shoe Right Footwear Regular Shoe Regular Shoe Pain Scale: 0-10 Numeric Is Patient Pain Free? Yes - Nurse 1 - General Ulcer Measurement Start: 03/14/21 11:10 Freq: Status: Active Protocol: Activity Type Activity Date Activity User E-Sign Co-Sign Detail Recorded Client Recorded Date Recorded By Document 03/14/21 11:11 KR [id number] 03/14/21 11:15 KR Document 03/21/21 11:24 MS [id number] 03/21/21 11:37 MS 03/14/21 03/21/21 11:11 11:24 Wound Center Nurse 1 1 left post thigh -Current Size (cm) - Length 11.5 9 -Current Size (cm) - Width 2.4 3 -Current Size (cm) - Depth 0.1 0.1 -Total Square Cm 27.60 27 -Exudate Amt Medium Small -Exudate Type Serosanguineous Purulent -Wound Margin Distinct, Distinct, Outline Outline Attached Attached -Granulation Amt Large (67-100%) Medium (34-66%) -Granulation Quality Red -Slough/Fibrin Yes -Necrosis Amt None Present (0 Medium (34-66%) %) -Necrotic Tissue Type Adherent Slough -Texture (Summer-wound Skin Appearance) Not Assessed, No Abnormality Scarring -Moisture (Summer-wound Skin Appearance) No Abnormality, Assessed -Color (Summer-wound Skin Appearance) No Abnormality, No Abnormality Assessed -Temperature (Summer-wound Skin No Abnormality No Abnormality Appearance) (Pt Warm) (Pt Warm) -Tenderness on Palpation (Summer-wound No Skin Appearance) -Ulcer Cleansing Rinsed/ Rinsed/ Irrigated with Irrigated with Saline Saline -Foul Odor after Cleansing No No -Anesthetic Used 5% Lidocaine 4% Lidocaine Gel Solution WC - Nurse 2 - General Ulcer CM Notes Start: 03/14/21 11:10 Freq: Status: Active Protocol: Activity Type Activity Date Activity User E-Sign Co-Sign Detail Recorded Client Recorded Date Recorded By Document 03/14/21 11:31 [id number] 03/14/21 11:36 Document 03/21/21 11:57 [id number] 03/21/21 12:00 03/14/21 03/21/21 11:31 11:57 Wound Center Nurse 2 1 left post thigh -Time 11:32 11:58 -Correct Patient Yes Yes -Correct Side, Site, Position Yes Yes -Correct Procedure Yes Yes -Procedure Performed Yes Yes -Type of Procedure Debridement Debridement -Clinical Debridement Subcutaneous Subcutaneous -Tissue Removed Subcutaneous Subcutaneous -Post Debridement (cm) - Length 10.5 9.5 -Post Debridement (cm) - Width 2.2 2.2 -Post Debridement (cm) - Depth 0.1 0.1 -Total Square (Post) (cm) 23.10 20.90 -Area of Debridement (cm) - Length 10.5 9.5 -Area of Debridement (cm) - Width 2.2 2.2 -Total Square (Area) (cm) 23.10 20.90 -Tunneling No No -Undermining/Tunneling No No -Circular Undermining No No -Wound/Ulcer Outcome Not Healed Not Healed -Ulcer Cleansing Rinsed/ Rinsed/ Irrigated with Irrigated with Saline Saline -Foul Odor after Cleansing No No -Bioengineered Tissue No No -Bleeding Controlled with Pressure Pressure -Offloading No No -Treatment Response Procedure Procedure Tolerated Well Tolerated Well -Debridement - Subq, 1st 20sq cm Yes Yes -Debridement, SubQ, ea addt'l 20sq cm 1 1 or part thereof Pain Scale: 0-10 Numeric Is Patient Pain Free? Yes Yes - Nurse 3 - General Ulcer D/C NN Start: 03/14/21 11:10 Freq: Status: Active Protocol: Activity Type Activity Date Activity User E-Sign Co-Sign Detail Recorded Client Recorded Date Recorded By Document 03/14/21 11:43 [id number] 03/14/21 11:44 Document 03/21/21 12:01 [id number] 03/21/21 12:02 03/14/21 03/21/21 11:43 12:01 Wound Care Nurse 3 1 left post thigh -Ulcer Cleansing Rinsed/ Rinsed/ Irrigated with Irrigated with Saline Saline -Foul Odor after Cleansing No No -Primary Dressing Applied Other Aquacel Extra -Other Dressing keramax -Primary Dressing Covered/Secured with Dry Gauze & Dry Gauze & Roll Gauze, Roll Gauze, Secured with Secured with Tape,Other Tape -Other Covering abd -Aquacel Extra 1 Treatment Response Procedure Tolerated Well Pain Scale: 0-10 Numeric Is Patient Pain Free? Yes Yes - Visit Discharge Discharge Condition Stable Stable Ambulatory Status Ambulatory Ambulatory Transportation Private Auto Private Auto Accompanied by [facility] Medication Reconcilliation completed & Yes provided to patient/care provider Clinical Summary of Care Provided Yes Wound debrided: lateral thigh ulcer Laterality: Left Type of Debridement: Excisional debridement Anesthesia Used: 5% Lidocaine Gel Depth: Down to and including healthy tissue and in the subcutaneous layer Percentage of wound debrided: 100 Instrument Used: 7mm curette Tissue Removed: Subcutaneous tissue and slough Severity: Fat Layer Exposed Amount of bleeding with debridement: Moderate Bleeding Controlled with: Pressure and Compression and gauze Debridement Free Text: Patient tolerated the debridement well.
[2021-04-04 14:46] VITALS: BP 109/78; PULSE 128; RESP 20; TEMP 36.9; BMI 18.6
--- NOTE | 2021-04-04 15:20 | PN.PCM_ITS ---
History of Present Illness Date of Service: 04/04/21 Chief Complaint: None healing postsurgical wound status post abscess incision and drainage by Dr. Laura on 12/10/2020 and I&D on 12/24/[address] Landin. History of Wound: Surgery 12/24/20 - Surgical preparation left posterior thigh with incision and drainage and excisional debridement nonhealing infected necrotic diabetic ulcer with abscess including necrotic muscle (276 cm2). Wound care - Theraskin #1 on February 14. Patient did not return to the wound center for a month after Theraskin was placed due to transportation issues. Stopped the Theraskin. Using Keramax dressing with gauze daily. SUSHIL wrap for compression. Surgical wound cultures positive for Rhizopus species, Klebsiella pneumoniae, and Anaerobic cocci. ID was consulted and he was on Doxycycline and Unasyn while hospitalized and was discharged on Augmentin and Doxycycline which he has completed. Prealbumin on 12/27/20 was 10.1. Encouraged protein supplementation to help with wound healing. When he was discharged, on 12/28/20, he went to [facility]. He was readmitted to the hospital on 01/24/2021 and discharged on 01/27/2021 for DKA. I ordered a dietary consult. I am unsure if he ever followed through with meeting with them. He was admitted again over the weekend for DKA. Today he denies fever. He states his appetite is good. Progress of Wound: Improved. Objective Data Objective Data Vital Signs: Vital Signs Temp Pulse Resp BP 98.5 F 128 H 20 H 109/78 04/04/21 14:46 04/04/21 14:46 04/04/21 14:46 04/04/21 14:46 Weight: 363 lb 12.203 oz Body Mass Index (BMI) 18.6 Physical Exam Const alert and oriented x3 HEENT normocephalic Eyes PERRL Lymph Lymphatic: no lymphedema noted Resp normal respiratory effort Cardio regular rate GI non-tender Palpation: soft Extremity normal capillary refill Skin Wound Narrative: Left lateral thigh ulcer is smaller in size. Neuro CN's II-XII intact bilaterally Psych Appearance: grossly normal Debridement Note Debridement Note Post-Debridement Measurements and Additional Note: Post-Debridement Measurements/Treatment WC - Nurse 1 - General Ulcer Assessment Start: 03/14/21 11:10 Freq: Status: Active Protocol: POWER.LOWEXT Activity Type Activity Date Activity User E-Sign Co-Sign Detail Recorded Client Recorded Date Recorded By Document 03/14/21 11:11 KR [id number] 03/14/21 11:15 KR Edit Result 03/14/21 11:11 KR (1) [id number] 03/14/21 11:16 KR Document 03/21/21 11:24 MS [id number] 03/21/21 11:37 MS Edit Result 03/21/21 11:24 MS (2) [id number] 03/21/21 11:38 MS Document 04/04/21 14:46 DL [id number] 04/04/21 14:52 DL (1) Blood Pressure (90/60-120/80) => 96/56 L Blood Pressure Mean (mm Hg) => 69 (2) Finger Stick Blood Sugar(mg/dl) (if => 352 indicated): Blood Sugar => Done During this => Visit 03/14/21 03/21/21 04/04/21 11:11 11:24 14:46 - Today's Visit Information Type of service Follow-up Visit Follow-up Visit Nurse-only (Physician/JEWELRY CASTING MODEL MAKER APPRENTICE (Physician/JEWELRY CASTING MODEL MAKER APPRENTICE Visit ) ) Arrival Mode Ambulatory Ambulatory Ambulatory Transfer Assistance Stretcher Patient Identification Verified (Name & Yes Yes Yes ) Patient Requires Transmission-Based No No Precautions Safety Precautions NA Finger Stick Blood Sugar(mg/dl) (if 352 120 indicated): Blood Sugar Done During Stated by this Visit Patient Height and Weight Body Mass Index (BMI) 18.6 18.6 18.6 BMI Classification Normal Normal Normal Vital Signs Temperature (97.8 F-99.1 F) 97.6 F L 97.8 F 98.5 F Temperature Source Temporal Temporal Temporal Pulse Rate (60-100) 110 H 128 H Pulse Location Monitor Monitor Monitor Respiratory Rate (12-18) 15 20 H Respiratory rate source Observation Blood Pressure (90/60-120/80) 96/56 L 112/70 109/78 Blood Pressure Mean (mm Hg) 69 84 88 Source Monitor Monitor Monitor Position Semi-Fowlers Sitting Blood Pressure Location Left Arm Left Arm History Since Last Visit- (Skip if this is Patient's initial visit) Have you changed medications since your No No No last visit? Any new allergies or adverse reactions No No No Had a fall/change in ADL's that may No No No increase risk of falls Signs or symptoms of abuse and/or No No No neglect since last visit Have you been in the hospital since your No Yes No last visit? Has dressing in place as prescribed Yes Yes Yes Has compression in place as prescribed N/A N/A Yes Has offloadiing in place as prescribed N/A N/A Experienced any changes in pain level or No No No management Left Footwear Regular Shoe Regular Shoe Right Footwear Regular Shoe Regular Shoe Pain Scale: 0-10 Numeric Is Patient Pain Free? Yes Yes WC - Nurse 1 - General Ulcer Measurement Start: 03/14/21 11:10 Freq: Status: Active Protocol: Activity Type Activity Date Activity User E-Sign Co-Sign Detail Recorded Client Recorded Date Recorded By Document 03/14/21 11:11 KR [id number] 03/14/21 11:15 KR Document 03/21/21 11:24 MS [id number] 03/21/21 11:37 MS Document 04/04/21 14:46 DL [id number] 04/04/21 14:52 DL 03/14/21 03/21/21 04/04/21 11:11 11:24 14:46 Wound Center Nurse 1 1 left post thigh -Current Size (cm) - Length 11.5 9 4.8 -Current Size (cm) - Width 2.4 3 0.8 -Current Size (cm) - Depth 0.1 0.1 1 -Total Square Cm 27.60 27 3.84 -Photo Taken No -Exudate Amt Medium Small Medium -Exudate Type Serosanguineous Purulent Serosanguineous -Wound Margin Distinct, Distinct, Fibrotic Scar, Outline Outline Thickened Scar Attached Attached -Granulation Amt Large (67-100%) Medium (34-66%) Large (67-100%) -Granulation Quality [place],Red -Slough/Fibrin Yes -Necrosis Amt None Present (0 Medium (34-66%) Small (1-33%) %) -Necrotic Tissue Type Adherent Slough Adherent Slough -Structure Exposed N/A -Texture (Summer-wound Skin Appearance) Not Assessed, No Abnormality Scarring Scarring -Moisture (Summer-wound Skin Appearance) No Abnormality, No Abnormality Assessed -Color (Summer-wound Skin Appearance) No Abnormality, No Abnormality No Abnormality Assessed -Temperature (Summer-wound Skin No Abnormality No Abnormality No Abnormality Appearance) (Pt Warm) (Pt Warm) (Pt Warm) -Tenderness on Palpation (Summer-wound No No Skin Appearance) -Ulcer Cleansing Rinsed/ Rinsed/ Wound Cleanser Irrigated with Irrigated with Saline Saline -Foul Odor after Cleansing No No Yes, Due to Product Use -Anesthetic Used 5% Lidocaine 4% Lidocaine 4% Lidocaine Gel Solution Solution WC - Nurse 2 - General Ulcer CM Notes Start: 03/14/21 11:10 Freq: Status: Active Protocol: Activity Type Activity Date Activity User E-Sign Co-Sign Detail Recorded Client Recorded Date Recorded By Document 03/14/21 11:31 [id number] 03/14/21 11:36 Document 03/21/21 11:57 [id number] 03/21/21 12:00 Document 04/04/21 15:00 [id number] 04/04/21 15:01 03/14/21 03/21/21 04/04/21 11:31 11:57 15:00 Wound Center Nurse 2 1 left post thigh -Time 11:32 11:58 15:00 -Correct Patient Yes Yes Yes -Correct Side, Site, Position Yes Yes Yes -Correct Procedure Yes Yes Yes -Procedure Performed Yes Yes Yes -Type of Procedure Debridement Debridement Debridement -Clinical Debridement Subcutaneous Subcutaneous Subcutaneous -Tissue Removed Subcutaneous Subcutaneous Subcutaneous -Post Debridement (cm) - Length 10.5 9.5 1.3 -Post Debridement (cm) - Width 2.2 2.2 5.3 -Post Debridement (cm) - Depth 0.1 0.1 0.1 -Total Square (Post) (cm) 23.10 20.90 6.89 -Area of Debridement (cm) - Length 10.5 9.5 1.3 -Area of Debridement (cm) - Width 2.2 2.2 5.3 -Total Square (Area) (cm) 23.10 20.90 6.89 -Tunneling No No No -Undermining/Tunneling No No No -Circular Undermining No No No -Wound/Ulcer Outcome Not Healed Not Healed Not Healed -Ulcer Cleansing Rinsed/ Rinsed/ Rinsed/ Irrigated with Irrigated with Irrigated with Saline Saline Saline -Foul Odor after Cleansing No No No -Bioengineered Tissue No No No -Bleeding Controlled with Pressure Pressure Pressure -Offloading No No No -Treatment Response Procedure Procedure Procedure Tolerated Well Tolerated Well Tolerated Well -Debridement - Subq, 1st 20sq cm Yes Yes No -Debridement, SubQ, ea addt'l 20sq cm 1 1 or part thereof Pain Scale: 0-10 Numeric Is Patient Pain Free? Yes Yes Yes - Nurse 3 - General Ulcer D/C NN Start: 03/14/21 11:10 Freq: Status: Active Protocol: Activity Type Activity Date Activity User E-Sign Co-Sign Detail Recorded Client Recorded Date Recorded By Document 03/14/21 11:43 DL [id number] 03/14/21 11:44 DL Document 03/21/21 12:01 JF [id number] 03/21/21 12:02 JF Document 04/04/21 15:05 DL [id number] 04/04/21 15:05 DL 03/14/21 03/21/21 04/04/21 11:43 12:01 15:05 Wound Care Nurse 3 1 left post thigh -Ulcer Cleansing Rinsed/ Rinsed/ Rinsed/ Irrigated with Irrigated with Irrigated with Saline Saline Saline -Foul Odor after Cleansing No No No -Primary Dressing Applied Other Aquacel Extra Other -Other Dressing keramax abd per d pawan human resources officer -Primary Dressing Covered/Secured with Dry Gauze & Dry Gauze & Roll Gauze, Roll Gauze, Secured with Secured with Tape,Other Tape -Other Covering abd -Aquacel Extra 1 Treatment Response Procedure Procedure Tolerated Well Tolerated Well Pain Scale: 0-10 Numeric Is Patient Pain Free? Yes Yes Yes - Visit Discharge Discharge Condition Stable Stable Stable Ambulatory Status Ambulatory Ambulatory Ambulatory Transportation Private Auto Private Auto Private Auto Accompanied by grandma grandmother Medication Reconcilliation completed & Yes provided to patient/care provider Clinical Summary of Care Provided Yes Wound debrided: Lateral thigh ulcer Laterality: Left Type of Debridement: Excisional debridement Anesthesia Used: 5% Lidocaine Gel Depth: Down to and including healthy tissue and in the subcutaneous layer Percentage of wound debrided: 100 Instrument Used: 5mm curette Tissue Removed: Subcutaneous tissue and slough Severity: Fat Layer Exposed Amount of bleeding with debridement: Mild Bleeding Controlled with: Pressure Patient tolerated procedure: Patient tolerated procedure well Assessment/Plan Assessment/Plan (1) Chronic ulcer of left thigh with fat layer exposed: CODE(S): L97.122 - Non-pressure chronic ulcer of left thigh with fat layer exposed (2) Noncompliance: CODE(S): Z91.19 - Patient's noncompliance with other medical treatment and regimen (3) Uncontrolled type 1 diabetes mellitus: CODE(S): E10.65 - Type 1 diabetes mellitus with hyperglycemia QUALIFIERS: Glycemic state: with hyperglycemia Qualified Code(s): E10.65 - Type 1 diabetes mellitus with hyperglycemia PLAN: Wound care -? Theraskin #1 applied on 02/14/21 with the wound VAC. ? He did not return to the wound center after placement of the Theraskin due to transportation issues.? He stopped using the wound VAC.? ?Will have him use Karamax dressings for absorption with gauze daily, after washing with soap and water daily. SUSHIL wrap to left thigh for compression.? ?He no longer has home health will go into his home due to his living conditions since he was discharged from [facility].? He has had several recent admissions for DKA.? I ordered a dietary consult to help him with food choices.? He states he has not heard from the dietitian.? We gave him the number for him to call.? Also reinforced this with his grandmother.? Surgical wound cultures positive for Rhizopus species, Klebsiella pneumoniae, and Anaerobic cocci. ID was consulted and he was on Doxycycline and Unasyn while hospitalized and was discharged on Augmentin and Doxycycline which he has completed.? Follow-up in 2 weeks.
== END 2021-04-11 23:59 ==
LOC: WC 14:00
PROVIDERS: Nurse Practitioner Family; PCP Pediatrics; Referring Provider Surgery; Visit Provider Nurse Practitioner Family
DX: E10.622 Type 1 diabetes mellitus with other skin ulcer (principal); Z65.9 Problem related to unspecified psychosocial circumstances; L97.122 Non-pressure chronic ulcer of left thigh with fat layer exposed; Z91.19 Patient's noncompliance with other medical treatment and regimen; E10.65 Type 1 diabetes mellitus with hyperglycemia
CPT/HCPCS: 11042; 11045; 82962

== ENCOUNTER 2021-05-02 11:15 | Outpatient (RCR) | payer MEDICAID, SELFPAY ==
[2021-04-09 22:20] VITALS: BMI 22.1
[2021-04-12 00:27] VITALS: BP 109/78; PULSE 128; RESP 20; TEMP 36.9
[2021-04-25 11:41] VITALS: BP 115/76; PULSE 121; TEMP 37.6; BMI 22.1
[2021-04-25 12:04] VITALS: BMI 17.3
--- NOTE | 2021-04-25 19:53 | PCM.WC.PN ---
History of Present Illness Date of Service: 04/25/21 Chief Complaint: None healing postsurgical wound status post abscess incision and drainage by Dr. Laura on 12/10/2020 and I&D on 12/24/[address] Landin. History of Wound: Surgery 12/24/20 - Surgical preparation left posterior thigh with incision and drainage and excisional debridement nonhealing infected necrotic diabetic ulcer with abscess including necrotic muscle (276 cm2). Wound care - Theraskin #1 on February 14. Patient did not return to the wound center for a month after Theraskin was placed due to transportation issues. Stopped the Theraskin. Using Keramax dressing with gauze daily. SUSHIL wrap for compression. Surgical wound cultures positive for Rhizopus species, Klebsiella pneumoniae, and Anaerobic cocci. ID was consulted and he was on Doxycycline and Unasyn while hospitalized and was discharged on Augmentin and Doxycycline which he has completed. Prealbumin on 12/27/20 was 10.1. Encouraged protein supplementation to help with wound healing. When he was discharged, on 12/28/20, he went to [facility]. He was readmitted to the hospital on 01/24/2021 and discharged on 01/27/2021 for DKA. I ordered a dietary consult. I am unsure if he ever followed through with meeting with them. I will reorder the dietary consult. He has lost over 30 lbs since November. Today he denies fever. He states his appetite is good. Progress of Wound: Improved. Objective Data Objective Data Vital Signs: Vital Signs Temp Pulse Resp BP 99.6 F H 121 H 20 H 115/76 04/25/21 11:41 04/25/21 11:41 04/12/21 00:27 04/25/21 11:41 Weight: 138 lb 8 oz Body Mass Index (BMI) 17.3 Charges/Coding Procedures Integumentary 111xxx-113xx: 11582 Tatiana subq tissue 20 sq cm/< Physical Exam Const alert and oriented x3 HEENT normocephalic Eyes PERRL Lymph Lymphatic: no lymphedema noted Resp normal respiratory effort Cardio regular rate GI GI Narrative: Flat Extremity normal capillary refill Skin Wound Narrative: Left lateral thigh ulcer cluster is much improved. There is some hypergranulation on the distal portion of the ulcer. Neuro CN's II-XII intact bilaterally Psych Appearance: grossly normal Debridement Note Debridement Note Post-Debridement Measurements and Additional Note: Post-Debridement Measurements/Treatment - Nurse 1 - General Ulcer Assessment Start: 04/25/21 11:41 Freq: Status: Active Protocol: RIK Activity Type Activity Date Activity User E-Sign Co-Sign Detail Recorded Client Recorded Date Recorded By Document 04/25/21 11:41 KR [id number] 04/25/21 11:45 KR Document 04/25/21 12:04 BMF [id number] 04/25/21 12:04 BMF Edit Result 04/25/21 12:04 BMF (1) [id number] 04/25/21 12:05 BMF (1) Height => 6 ft 3 in Body Mass Index (BMI) => 17.3 BMI Classification => Underweight BSA - Esa => 1.88 04/25/21 04/25/21 11:41 12:04 WC - Today's Visit Information Type of service Follow-up Visit (Physician/UNDERTAKER ASSISTANT ) Arrival Mode Ambulatory Patient Identification Verified (Name & Yes ) Height 6 ft 3 in Weight 138 lb 8 oz Weight in Pounds 138.5 lbs Weight Measurement Method Standing Scale Height and Weight Body Mass Index (BMI) 22.1 17.3 BMI Classification Normal Underweight BSA - Esa 1.88 Vital Signs Temperature (97.8 F-99.1 F) 99.6 F H Temperature Source Temporal Pulse Rate (60-100) 121 H Pulse Location Monitor Blood Pressure (90/60-120/80) 115/76 Blood Pressure Mean (mm Hg) 89 Source Monitor Position Semi-Fowlers Blood Pressure Location Right Arm History Since Last Visit- (Skip if this is Patient's initial visit) Have you changed medications since your No last visit? Any new allergies or adverse reactions No Had a fall/change in ADL's that may No increase risk of falls Signs or symptoms of abuse and/or No neglect since last visit Have you been in the hospital since your No last visit? Has dressing in place as prescribed Yes Has compression in place as prescribed N/A Has offloadiing in place as prescribed N/A Experienced any changes in pain level or No management Left Footwear Regular Shoe Right Footwear Regular Shoe Pain Scale: 0-10 Numeric Is Patient Pain Free? Yes - Nurse 1 - General Ulcer Measurement Start: 04/25/21 11:41 Freq: Status: Active Protocol: Activity Type Activity Date Activity User E-Sign Co-Sign Detail Recorded Client Recorded Date Recorded By Document 04/25/21 11:41 ELVIS [id number] 04/25/21 11:45 ELVIS 04/25/21 11:41 Wound Center Nurse 1 1 left post thigh -Current Size (cm) - Length 9.2 -Current Size (cm) - Width 1.8 -Current Size (cm) - Depth 0.1 -Total Square Cm 16.56 -Exudate Amt Medium -Exudate Type Serosanguineous -Wound Margin Distinct, Outline Attached -Granulation Amt Large (67-100%) -Granulation Quality Hyper- granulation -Necrosis Amt None Present (0 %) -Texture (Summer-wound Skin Appearance) Assessed, Scarring -Moisture (Summer-wound Skin Appearance) No Abnormality, Assessed -Color (Summer-wound Skin Appearance) No Abnormality, Assessed -Temperature (Summer-wound Skin No Abnormality Appearance) (Pt Warm) -Tenderness on Palpation (Summer-wound No Skin Appearance) -Ulcer Cleansing Rinsed/ Irrigated with Saline -Foul Odor after Cleansing No -Anesthetic Used 5% Lidocaine Gel WC - Nurse 2 - General Ulcer CM Notes Start: 04/25/21 11:41 Freq: Status: Active Protocol: Activity Type Activity Date Activity User E-Sign Co-Sign Detail Recorded Client Recorded Date Recorded By Document 04/25/21 12:19 LIVAN [id number] 04/25/21 12:20 LIVAN 04/25/21 12:19 Wound Center Nurse 2 -Time 11:51 -Correct Patient Yes -Correct Side, Site, Position Yes -Correct Procedure Yes -Procedure Performed Yes -Type of Procedure Debridement -Clinical Debridement Subcutaneous -Tissue Removed Subcutaneous -Post Debridement (cm) - Length 9.5 -Post Debridement (cm) - Width 1.3 -Post Debridement (cm) - Depth 0.2 -Total Square (Post) (cm) 12.35 -Area of Debridement (cm) - Length 9.5 -Area of Debridement (cm) - Width 1.3 -Total Square (Area) (cm) 12.35 -Tunneling No -Undermining/Tunneling No -Circular Undermining No -Wound/Ulcer Outcome Not Healed -Ulcer Cleansing Rinsed/ Irrigated with Saline -Foul Odor after Cleansing No -Bioengineered Tissue No -Debridement - Subq, 1st 20sq cm Yes Pain Scale: 0-10 Numeric Is Patient Pain Free? Yes - Nurse 3 - General Ulcer D/C NN Start: 04/25/21 11:41 Freq: Status: Active Protocol: Activity Type Activity Date Activity User E-Sign Co-Sign Detail Recorded Client Recorded Date Recorded By Document 04/25/21 12:00 ELVIS [id number] 04/25/21 12:02 ELVIS 04/25/21 12:00 Wound Care Nurse 3 1 left post thigh -Ulcer Cleansing Rinsed/ Irrigated with Saline -Primary Dressing Applied C Hydrogel ($), NonAdherent Contact Layer -Primary Dressing Covered/Secured with Dry Gauze, Secured with Tape Pain Scale: 0-10 Numeric Is Patient Pain Free? Yes WC - Visit Discharge Discharge Condition Stable Ambulatory Status Ambulatory Transportation Private Auto Accompanied by mom Wound debrided: Lateral thigh ulcer Laterality: Left Type of Debridement: Excisional debridement Anesthesia Used: 5% Lidocaine Gel Depth: Down to and including healthy tissue and in the subcutaneous layer Percentage of wound debrided: 100 Instrument Used: 3mm curette Tissue Removed: Subcutaneous tissue and slough, hypergranulation on the distal portion Severity: Fat Layer Exposed Amount of bleeding with debridement: Mild Bleeding Controlled with: Pressure and Compression and gauze Patient tolerated procedure: Patient tolerated procedure well Assessment/Plan Assessment/Plan (1) 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 He did not return to the wound center after placement of the Theraskin due to transportation issues. Will have him wash ulcer daily with soap and water. He can then place Collagen hydrogel covered with adaptic then topped with dry gauze, daily. He no longer has home health will go into his home due to his living conditions since he was discharged from [facility]. He has had several recent admissions for DKA. I ordered a dietary consult to help him with food choices. He states he has not heard from the dietitian. He has lost 30 lbs since November. Will re-order the dietary consult. Surgical wound cultures positive for Rhizopus species, Klebsiella pneumoniae, and Anaerobic cocci. ID was consulted and he was on Doxycycline and Unasyn while hospitalized and was discharged on Augmentin and Doxycycline which he has completed. Stressed the importance of increased protein. Follow-up in 1 week.
[2021-05-02 11:05] VITALS: BP 119/64; PULSE 114; RESP 16; TEMP 37; BMI 17.3
--- NOTE | 2021-05-02 12:00 | PCM.WC.PN ---
History of Present Illness Date of Service: 05/02/21 Chief Complaint: None healing postsurgical wound status post abscess incision and drainage by Dr. Laura on 12/10/2020 and I&D on 12/24/[address] Landin. History of Wound: Surgery 12/24/20 - Surgical preparation left posterior thigh with incision and drainage and excisional debridement nonhealing infected necrotic diabetic ulcer with abscess including necrotic muscle (276 cm2). Wound care - Theraskin #1 on February 14. Patient did not return to the wound center for a month after Theraskin was placed due to transportation issues. Stopped the Theraskin. Using Keramax dressing with gauze daily. SUSHIL wrap for compression. Surgical wound cultures positive for Rhizopus species, Klebsiella pneumoniae, and Anaerobic cocci. ID was consulted and he was on Doxycycline and Unasyn while hospitalized and was discharged on Augmentin and Doxycycline which he has completed. Prealbumin on 12/27/20 was 10.1. Encouraged protein supplementation to help with wound healing. When he was discharged, on 12/28/20, he went to [facility]. He was readmitted to the hospital on 01/24/2021 and discharged on 01/27/2021 for DKA. I ordered a dietary consult. I am unsure if he ever followed through with meeting with them. I will reorder the dietary consult. He has lost over 30 lbs since November. Today he denies fever. He states his appetite is good. Progress of Wound: Increased hypergranulation with several new openings in the ulcer. Objective Data Objective Data Vital Signs: Vital Signs Temp Pulse Resp BP 98.6 F 114 H 16 119/64 05/02/21 11:05 05/02/21 11:05 05/02/21 11:05 05/02/21 11:05 Oxygen Delivery Method Room Air Weight: 138 lb 8 oz Body Mass Index (BMI) 17.3 Charges/Coding Procedures Integumentary 111xxx-113xx: 28014 Tatiana subq tissue 20 sq cm/< Physical Exam Const alert, oriented x3 and no apparent distress HEENT normocephalic Head and Scalp: atraumatic Eyes PERRL Lymph Lymphatic: no lymphedema noted Resp normal respiratory effort Cardio regular rate GI non-tender Extremity normal to inspection Skin Wound Narrative: Left lateral leg ulcer cluster with new open areas. Increased hypergranulation. Neuro CN's II-XII intact bilaterally Psych affect normal Debridement Note Debridement Note Post-Debridement Measurements and Additional Note: Post-Debridement Measurements/Treatment WC - Nurse 1 - General Ulcer Assessment Start: 04/25/21 11:41 Freq: Status: Active Protocol: POWER.LOWEXT Activity Type Activity Date Activity User E-Sign Co-Sign Detail Recorded Client Recorded Date Recorded By Document 04/25/21 11:41 KR [id number] 04/25/21 11:45 KR Document 04/25/21 12:04 BMF [id number] 04/25/21 12:04 BMF Edit Result 04/25/21 12:04 BMF (1) [id number] 04/25/21 12:05 BMF Document 05/02/21 11:05 BMF [id number] 05/02/21 11:12 BMF (1) Height => 6 ft 3 in Body Mass Index (BMI) => 17.3 BMI Classification => Underweight BSA - Esa => 1.88 04/25/21 04/25/21 05/02/21 11:41 12:04 11:05 - Today's Visit Information Type of service Follow-up Visit Follow-up Visit (Physician/PRECIPITATOR OPERATOR (Physician/PRECIPITATOR OPERATOR ) ) Arrival Mode Ambulatory Ambulatory Transfer Assistance None Patient Identification Verified (Name & Yes Yes ) Patient Requires Transmission-Based No Precautions Height 6 ft 3 in Weight 138 lb 8 oz Weight in Pounds 138.5 lbs Weight Measurement Method Standing Scale Height and Weight Body Mass Index (BMI) 22.1 17.3 17.3 BMI Classification Normal Underweight Underweight BSA - Esa 1.88 Vital Signs Temperature (97.8 F-99.1 F) 99.6 F H 98.6 F Temperature Source Temporal Temporal Pulse Rate (60-100) 121 H 114 H Pulse Location Monitor Monitor Respiratory Rate (12-18) 16 Respiratory rate source Observation Oxygen Delivery Method Room Air Blood Pressure (90/60-120/80) 115/76 119/64 Blood Pressure Mean (mm Hg) 89 82 Source Monitor Monitor Position Semi-Fowlers Sitting Blood Pressure Location Right Arm Left Arm History Since Last Visit- (Skip if this is Patient's initial visit) Have you changed medications since your No No last visit? Any new allergies or adverse reactions No No Had a fall/change in ADL's that may No No increase risk of falls Signs or symptoms of abuse and/or No No neglect since last visit Have you been in the hospital since your No No last visit? Has dressing in place as prescribed Yes Yes Has compression in place as prescribed N/A N/A Has offloadiing in place as prescribed N/A N/A Experienced any changes in pain level or No No management Left Footwear Regular Shoe Regular Shoe Right Footwear Regular Shoe Regular Shoe Pain Scale: 0-10 Numeric Is Patient Pain Free? Yes Yes WC - Nurse 1 - General Ulcer Measurement Start: 04/25/21 11:41 Freq: Status: Active Protocol: Activity Type Activity Date Activity User E-Sign Co-Sign Detail Recorded Client Recorded Date Recorded By Document 04/25/21 11:41 KR [id number] 04/25/21 11:45 KR Document 05/02/21 11:05 [facility] [id number] 05/02/21 11:12 [facility] 04/25/21 05/02/21 11:41 11:05 Wound Center Nurse 1 1 left post thigh -Combined with other wound No -Current Size (cm) - Length 9.2 12.9 -Current Size (cm) - Width 1.8 1.4 -Current Size (cm) - Depth 0.1 0.1 -Total Square Cm 16.56 18.06 -Photo Taken No -Epithelialization None Present -Tunneling No -Undermining/Tunneling No -Circular Undermining No -Exudate Amt Medium Medium -Exudate Type Serosanguineous Serosanguineous -Wound Margin Distinct, Distinct, Outline Outline Attached Attached -Granulation Amt Large (67-100%) Medium (34-66%) -Granulation Quality Hyper- Red granulation -Slough/Fibrin Yes -Necrosis Amt None Present (0 Medium (34-66%) %) -Necrotic Tissue Type Adherent Slough -Texture (Summer-wound Skin Appearance) Assessed, Assessed, Scarring Scarring -Moisture (Summer-wound Skin Appearance) No Abnormality, Assessed Assessed -Color (Summer-wound Skin Appearance) No Abnormality, Assessed, Assessed Erythema -Temperature (Summer-wound Skin No Abnormality No Abnormality Appearance) (Pt Warm) (Pt Warm) -Tenderness on Palpation (Summer-wound No Yes Skin Appearance) -Ulcer Cleansing Rinsed/ SOAPY WATER Irrigated with Saline -Foul Odor after Cleansing No No -Anesthetic Used 5% Lidocaine 4% Lidocaine Gel Solution WC - Nurse 2 - General Ulcer CM Notes Start: 04/25/21 11:41 Freq: Status: Active Protocol: Activity Type Activity Date Activity User E-Sign Co-Sign Detail Recorded Client Recorded Date Recorded By Document 04/25/21 12:19 PL [id number] 04/25/21 12:20 PL Document 05/02/21 11:41 JF [id number] 05/02/21 11:43 JF 04/25/21 05/02/21 12:19 11:41 Wound Center Nurse 2 1 left post thigh -Time 11:51 11:41 -Correct Patient Yes Yes -Correct Side, Site, Position Yes Yes -Correct Procedure Yes Yes -Procedure Performed Yes Yes -Type of Procedure Debridement Debridement -Clinical Debridement Subcutaneous Subcutaneous -Tissue Removed Subcutaneous Subcutaneous -Post Debridement (cm) - Length 9.5 13 -Post Debridement (cm) - Width 1.3 1.4 -Post Debridement (cm) - Depth 0.2 0.3 -Total Square (Post) (cm) 12.35 18.2 -Area of Debridement (cm) - Length 9.5 13 -Area of Debridement (cm) - Width 1.3 1.4 -Total Square (Area) (cm) 12.35 18.2 -Tunneling No No -Undermining/Tunneling No No -Circular Undermining No No -Wound/Ulcer Outcome Not Healed Not Healed -Ulcer Cleansing Rinsed/ Rinsed/ Irrigated with Irrigated with Saline Saline -Foul Odor after Cleansing No No -Bioengineered Tissue No No -Bleeding Controlled with Pressure -Offloading No -Treatment Response Procedure Tolerated Well -Debridement - Subq, 1st 20sq cm Yes Yes Pain Scale: 0-10 Numeric Is Patient Pain Free? Yes Yes - Nurse 3 - General Ulcer D/C NN Start: 04/25/21 11:41 Freq: Status: Active Protocol: Activity Type Activity Date Activity User E-Sign Co-Sign Detail Recorded Client Recorded Date Recorded By Document 04/25/21 12:00 KR [id number] 04/25/21 12:02 KR Document 05/02/21 11:53 KR [id number] 05/02/21 11:54 KR 04/25/21 05/02/21 12:00 11:53 Wound Care Nurse 3 1 left post thigh -Ulcer Cleansing Rinsed/ Irrigated with Saline -Primary Dressing Applied C Hydrogel ($), Silvercel NonAdherent Contact Layer -Primary Dressing Covered/Secured with Dry Gauze, Dry Gauze,Dry Secured with Gauze & Roll Tape Gauze,Secured with Tape -Silvercel 1 Pain Scale: 0-10 Numeric Is Patient Pain Free? Yes Yes WC - Visit Discharge Discharge Condition Stable Stable Ambulatory Status Ambulatory Ambulatory Transportation Private Auto Private Auto Accompanied by mom alexis Wound debrided: Lateral leg ulcer cluster Laterality: Left Type of Debridement: Excisional debridement Anesthesia Used: 5% Lidocaine Gel Depth: Down to and including healthy tissue and in the subcutaneous layer Percentage of wound debrided: 100 Instrument Used: 5mm curette Tissue Removed: Subcutaneous tissue and slough Severity: Fat Layer Exposed Bleeding Controlled with: Pressure and Compression and gauze Patient tolerated procedure: Patient tolerated procedure well Assessment/Plan Assessment/Plan (1) 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 He did not return to the wound center after placement of the Theraskin due to transportation issues. Will have him wash ulcer daily with soap and water. Stop Collagen hydrogel and start Silver alginate covered with dry gauze, daily. He no longer has home health will go into his home due to his living conditions since he was discharged from [facility]. He has had several recent admissions for DKA. I ordered a dietary consult to help him with food choices. He states he has not heard from the dietitian. He has lost 30 lbs since November. Re-order the dietary consult and gave him dietary's number so he can call. Surgical wound cultures positive for Rhizopus species, Klebsiella pneumoniae, and Anaerobic cocci. ID was consulted and he was on Doxycycline and Unasyn while hospitalized and was discharged on Augmentin and Doxycycline which he has completed. Stressed the importance of increased protein. Follow-up in 1 week for nurse visit and with me on 05/17/21.
== END 2021-05-11 23:59 ==
LOC: WC 11:15
PROVIDERS: PCP Pediatrics; Referring Provider Surgery; Visit Provider Nurse Practitioner Family
DX: E10.622 Type 1 diabetes mellitus with other skin ulcer (principal); Z91.19 Patient's noncompliance with other medical treatment and regimen; L97.122 Non-pressure chronic ulcer of left thigh with fat layer exposed; E10.65 Type 1 diabetes mellitus with hyperglycemia; J45.909 Unspecified asthma, uncomplicated
CPT/HCPCS: 11042

== ENCOUNTER 2021-05-31 15:25 | Emergency (ER) | payer MEDICAID, SELFPAY ==
[2021-05-31 15:27] VITALS: BP 105/68; PULSE 122; RESP 18; TEMP 36.1; O2SAT 98; BMI 19.5
--- NOTE | 2021-05-31 15:53 | EDS_ITS ---
HPI History of Present Illness Chief Complaint: Lower Extremity Injury Informant: patient and parent Occured/Mechanism Comment: Scraped on the corner of a wall accidentally Onset/Context/Timing Onset: Days (2) Context: Sudden Onset Timing: Continuous Quality of Pain: - (sore) Location: Right foot big toe Current Severity: Mild Maximum Severity: Mild Worsened by: Palpation Relieved by: Leaving alone Associated Symptoms Associated Symptoms: Negative for Parasthesia, Weakness and Loss of Funtion Narrative Narrative: Patient states he accidentally scraped the side of his right big toe on the corner of a wall 2 days ago. He has a scabbed wound, he states it has been seeping a little bit. He states it is a little sore but otherwise he does not seem very concerned about it. His mother states that his feet are swollen and red and she is concerned about infection because he is diabetic he does not check his blood sugars and has been in DKA before. She states he is not acting sick enough to be in DKA but she was concerned about the wound. The patient, however, states that the redness and swelling in his foot is normal for him and chronic, he states it itches a little does not hurt, and completely disagrees with his mother. Patient agrees that he has been noncompliant with his insulin, often forgetting to take it. [facility] Medical History Asthma Asthma Diabetes Diabetes mellitus type 1 Diabetes mellitus with ketoacidosis femur surgery Nonhealing surgical wound Ulcer of leg, chronic Unspecified open wound, left thigh, subsequent encounter Home Medications albuterol sulfate 2 puff INHALATION Q4H PRN PRN 02/15/19 [History Last Taken 12/09/20] acetaminophen 650 mg PO Q6H PRN PRN udc 12/28/20 [Rx Last Taken 01/24/21] insulin lispro 10 unit SC TIDAC MDD 45 01/24/21 [History Last Taken 01/24/21] potassium chloride 20 meq PO BID 01/24/21 [History Last Taken 01/24/21] insulin glargine 100 unit/mL (3 mL) subcutaneous pen 25 unit SC DAILY #15 ml 01/28/21 [Rx Last Taken Unknown] amoxicillin-pot clavulanate 875 mg PO Q12H #20 tab 02/18/21 [Rx Last Taken Unknown] Lantus Solostar U-100 Insulin 25 unit SUBCUT QHS #15 ml 03/20/21 [Rx Last Taken Unknown] insulin lispro [Humalog KwikPen Insulin] See Protocol SUBCUT ACHS #0 ml 03/20/21 [Rx Last Taken Unknown] cephalexin 500 mg PO Q6 #40 capsule 05/31/21 [Rx Last Taken Unknown] omeprazole 20 mg PO DAILY 05/31/21 [History Last Taken Unknown] Allergy/AdvReac Type Severity Reaction Status Date / Time Milk Containing Products AdvReac Diarrhea Verified 05/31/21 15:26 Family History (System 04/06/21 @ 14:04 by Idania Hylton) Other Asthma CVA (cerebral vascular accident) Diabetes Hypertension Thyroid disorder Surgical History Hx of knee surgery Social History Smoking Status: Never smoker alcohol intake: never ROS ROS ED Constitutional Constitutional ED: Denies chills or fever(s) Respiratory/Chest Respiratory/Chest: Denies cough or dyspnea Gastrointestinal Gastrointestinal: Denies nausea or vomiting Musculoskeletal Musculoskeletal: Reports extremity pain; Denies neck pain Integumentary Denies Abrasions, rash or wounds Neurologic Neurologic: Denies paresthesias or weakness EXAM Physical Exam Const Vital Signs: 05/31/21 15:27 05/31/21 18:00 05/31/21 19:46 Temperature 96.9 F L 97.6 F L 97.6 F L Temperature Source Temporal Temporal Temporal Pulse Rate 122 H 92 92 Respiratory Rate 18 16 18 Blood Pressure 105/68 96/57 L 96/51 L Blood Pressure Mean 80 70 66 Pulse Ox 98 98 98 Oxygen Delivery Method Room Air Room Air Room Air Positive well nourished and well developed General Appearance ED: well developed and NAD HEENT normocephalic and atraumatic Neck full ROM and supple Resp normal respiratory effort Resp Narrative: No tachypnea Extremity Extremity Narrative: Small nontender abrasion with an intact scab and no expressible discharge on the tibial aspect of the right great toe. There is no localized swelling or cellulitis but there is some nontender pruritic erythema on the dorsal forefoot just proximal to all the webspaces. There is also some at the peroneal aspect of the base of the foot. None of this is tender there is no lymphangitis. The patient states this is all chronic. Mild diffuse foot edema that is symmetric bilaterally to about the ankles. Full range of motion without any bony tenderness. Neuro oriented x3 and CN's II-XII intact bilaterally Sensorium / Orientation: alert; Negative for lethargic Motor Exam: strength 5/5 throughout Psych mental status grossly normal Skin Skin Narrative: Scabbed abrasion right great toe as above. There is not appear to be obvious infection with it. No lymphangitis. See above for other details of the right foot. Trauma: Negative for laceration or puncture MDM MDM MDM Narrative Medical decision making narrative: Objectively this does not appear to be infected, it looks like a small abrasion that is scabbed and healing. However given the redness and edema in the patient's foot and leg, and the fact that he and his mother cannot agree on whether this is normal for him or new with this wound, and the fact that he is a noncompliant patient who does not even check his blood sugars as a type I diabetic, and this is the emergency room seeing a practitioner who has never seen his foot and leg before, I think it would be most reasonable to cover him empirically with cephalexin and have him follow-up closely with his doctor. He is a little tachycardic but he does not appear to be in DKA. His blood sugar was checked; it read high, over 500. Therefore, lab work was obtained, VBG, he was given a liter of fluid along with some insulin. He does have an anion gap, he does have ketones in his serum screen, however he always does. He is not acidotic on VBG after giving him insulin. We were able to get his sugar down to the 330 range from 630. He is still feeling fine. The edema appears chronic. Advised to follow-up and take his antibiotics. Lab Data Attestation: I reviewed the patient's lab results. Labs: Laboratory Results - last 24 hr 05/31/21 05/31/21 05/31/21 16:06 16:20 16:20 WBC 3.4 L RBC 4.19 L Hgb 13.2 Hct 36.1 L MCV 86.2 MCH 31.5 MCHC 36.6 H RDW Std Deviation 40.6 RDW Coeff of Rabia 13.1 Plt Count 208 MPV 9.3 Immature Gran % (Auto) 0.900 Neut % (Auto) 63.9 Lymph % (Auto) 21.8 [place] % (Auto) 10.5 H Eos % (Auto) 1.7 Baso % (Auto) 1.2 H Absolute Neuts (auto) 2.2 Absolute Lymphs (auto) 0.75 L Nucleated RBC % 0 Sodium 128 L Potassium 4.1 Chloride 96 L Carbon Dioxide 16.0 L Anion Gap 16 H BUN 12 Creatinine 0.88 Estim Creat Clear Calc 127.65 Est GFR (MDRD) Af Amer 141 Est GFR (MDRD) Non-Af 117 BUN/Creatinine Ratio 13.6 Glucose 673 H* Calcium 8.3 L Acetone Level POC Glucose > 500 H* 05/31/21 05/31/21 05/31/21 18:14 18:50 20:01 WBC RBC Hgb Hct MCV MCH MCHC RDW Std Deviation RDW Coeff of Rabia Plt Count MPV Immature Gran % (Auto) Neut % (Auto) Lymph % (Auto) [place] % (Auto) Eos % (Auto) Baso % (Auto) Absolute Neuts (auto) Absolute Lymphs (auto) Nucleated RBC % Sodium Potassium Chloride Carbon Dioxide Anion Gap BUN Creatinine Estim Creat Clear Calc Est GFR (MDRD) Af Amer Est GFR (MDRD) Non-Af BUN/Creatinine Ratio Glucose Calcium Acetone Level MODERATE H POC Glucose 418 H 335 H ABG Data ABG results: ABG 05/31/21 18:51 Specimen Type MARILYNN VBG pH 7.35 VBG pO2 37 VBG HCO3 18 L VBG Total CO2 19 L VBG O2 Sat (Calc) 69 VBG Base Excess -8 L POC Mix VBG pCO2 Pt Tmp 32.7 L Discharge Plan Triage Chief Complaint: Lower Extremity Injury ED Provider: Milan Hines Dx/Rx/DC Orders Clinical Impression: Abrasion of great toe, right, Bilateral edema of lower extremity, Noncompliance with diabetes treatment, Hyperglycemia due to type 1 diabetes mellitus Instructions: ED Diabetic Hyperglycemia, ED Diabetic Foot Care Prescriptions: New cephalexin [cephalexin] 500 MG capsule 500 mg PO Q6 Qty: 40 RF: 0 No Action albuterol sulfate 1 INHALER inhaler 2 puff INHALATION Q4H PRN PRN (Reason: Wheezing) RF: 0 acetaminophen 650 MG/20 ML solution 650 mg PO Q6H PRN PRN (Reason: Pain Score 1-3 /Temp>100.7) RF: 0 potassium chloride 20 MEQ tablet 20 meq PO BID RF: 0 insulin lispro 100 UNIT/ML insulin pen 10 unit SC TIDAC MDD 45 RF: 0 amoxicillin-pot clavulanate 875 MG tablet 875 mg PO Q12H Qty: 20 RF: 0 insulin lispro [Humalog KwikPen Insulin] 100 unit/mL Insulin Pen See Protocol unit subcut ACHS Qty: 0 RF: 0 Lantus Solostar U-100 Insulin 100 unit/mL (3 mL) Insulin Pen 25 unit subcut QHS Qty: 15 RF: 0 omeprazole 20 mg Capsule,Delayed Release(Dr/Ec) 20 mg PO DAILY RF: 0 Lantus Solostar U-100 Insulin 100 unit/mL (3 mL) insulin pen 25 unit SC DAILY Qty: 15 RF: 4 Primary Care Provider: Tori Butler Referrals: Tori Butler MD [Primary Care Provider] - Doctor,Your [STAFF PHYSICIAN] - 3-5 Days Disposition Disposition: Home, Self Care
[2021-05-31 16:16] LABS: Bedside Glucose > 500 mg/dL (70-110)
[2021-05-31] MEDS: Cephalexin 250 MG Capsule 500 MG PO (16:31)
[2021-05-31] MEDS: 0.9% Normal Saline 1,000 ML 999 ML IV (16:36)
[2021-05-31] MEDS: Insulin Lispro 100 UNIT/ML INSULN.PEN 20 UNIT SC (16:37)
[2021-05-31 16:40] LABS: Absolute Lymphocyte Count 0.75 X10^3/uL (0.83-4.51); Absolute Neutrophil Count 2.2 X10^3/uL (2.0-7.7); Basophil# 0.04 X10^3/uL; Basophil% 1.2 % (0-1); Eosinophil# 0.06 X10^3/uL; Eosinophils% 1.7 % (0-5); Hematocrit 36.1 % (40-54); Hemoglobin 13.2 g/dL (13.0-16.5); Lymphocyte # 0.75 X10^3/ul (0.83-4.51); Lymphocyte % 21.8 % (19-41); Mean Corp Hgb Conc 36.6 g/dL (32-36); Mean Corpuscular Hgb 31.5 pg (27.0-32.0); Mean Corpuscular Volume 86.2 fL (80-94); Mean Platelet Vol. 9.3 fl (6.2-12.0); Monocyte# 0.36 X10^3/uL; Monocyte% 10.5 % (0-10); NRBC Flagged by Analyzer 0 % (0-5); Neutrophil % 63.9 % (47-70); Platelet Count 208 K/mm3 (150-450); RBC Distribution Width CV 13.1 % (11.6-14.6); RBC Distribution Width SD 40.6 fl (35.1-43.9); Red Blood Count 4.19 M/mm3 (4.6-6.2); White Blood Count 3.4 K/mm3 (4.4-11.0)
[2021-05-31 17:15] LABS: Anion Gap 16 (5-15); BUN 12 mg/dL (7-18); BUN/Creat Ratio 13.6 RATIO (10-20); Calcium,Total 8.3 mg/dL (8.5-10.1); Chloride 96 mmol/L (98-107); Creatinine, Serum 0.88 mg/dL (0.70-1.30); EST Glomerular Filtration Rate 117 mL/min (>60); Est Glom Filt Rate - Afr Amer 141 mL/min (>60); Estimated Creatinine Clearance 127.65 ml/min; Glucose 673 mg/dL (74-106); Potassium 4.1 mmol/L (3.5-5.1); Sodium Level 128 mmol/L (136-145)
[2021-05-31 18:00] VITALS: BP 96/57; PULSE 92; RESP 16; TEMP 36.4; O2SAT 98
[2021-05-31 18:20] LABS: Bedside Glucose 418 mg/dL (70-110)
[2021-05-31 18:56] LABS: Blood Gas Specimen Type VEN; VBG BASE EXCESS -8 mmol/L (-1.0-3.5); VBG Bicarbonate 18 mmol/L (22-26); VBG PO2 37 mmHg (25-40); VBG SO2 69 % (50-70); VBG TCO2 19 mmol/L (23-33); VBG pCO2 32.7 mmHg (41-51); VBG pH 7.35 (7.32-7.42)
[2021-05-31 19:46] VITALS: BP 96/51; PULSE 92; RESP 18; TEMP 36.4; O2SAT 98
[2021-05-31 20:06] LABS: Bedside Glucose 335 mg/dL (70-110)
[2021-05-31 21:06] VITALS: RESP 14
== END 2021-05-31 21:09 | disposition home or self-care (01) ==
PROVIDERS: Emergency Provider Emergency Medicine; PCP Pediatrics
DX: S90.411A Abrasion, right great toe, initial encounter (principal); R60.0 Localized edema; E10.65 Type 1 diabetes mellitus with hyperglycemia; J45.909 Unspecified asthma, uncomplicated; Z91.14 Patient's other noncompliance with medication regimen; Z79.4 Long term (current) use of insulin; Z79.899 Other long term (current) drug therapy; X58.XXXA Exposure to other specified factors, initial encounter
CPT/HCPCS: 80048; 82009; 82803; 82962; 85025; 96360; 96361; 99284; J7030; A4216

== ENCOUNTER 2021-06-20 13:15 | Outpatient (RCR) | payer MEDICAID, SELFPAY ==
[2021-05-12 00:22] VITALS: BP 119/64; PULSE 114; RESP 16; TEMP 37
[2021-06-13 13:57] VITALS: BP 111/61; PULSE 97; TEMP 35.8; BMI 19.5
--- NOTE | 2021-06-13 15:10 | PCM.WC.PN ---
History of Present Illness Date of Service: 06/13/21 Chief Complaint: None healing postsurgical wound status post abscess incision and drainage by Dr. Laura on 12/10/2020 and I&D on 12/24/[address] Landin. History of Wound: Surgery 12/24/20 - Surgical preparation left posterior thigh with incision and drainage and excisional debridement nonhealing infected necrotic diabetic ulcer with abscess including necrotic muscle (276 cm2). Wound care - Theraskin #1 on February 14. Patient did not return to the wound center for a month after Theraskin was placed due to transportation issues. Stopped the Theraskin. Collagen hydrogel covered by gauze dressing daily to left lateral thigh. Has a new wound on right medial foot proximal to great toe. Place silver alginate to the toe daily and cover with gauze. SUSHIL wrap for compression. Surgical wound cultures positive for Rhizopus species, Klebsiella pneumoniae, and Anaerobic cocci. ID was consulted and he was on Doxycycline and Unasyn while hospitalized and was discharged on Augmentin and Doxycycline which he has completed. Prealbumin on 12/27/20 was 10.1. Encouraged protein supplementation to help with wound healing. When he was discharged, on 12/28/20, he went to [facility]. He was readmitted to the hospital on 01/24/2021 and discharged on 01/27/2021 for DKA. I ordered a dietary consult. I am unsure if he ever followed through with meeting with them. I will reorder the dietary consult. He has lost over 30 lbs since November. Today he denies fever. He states his appetite is good. Progress of Wound: Left lateral thigh is improved. New right medial foot wound cluster proximal to toe wound is stable. Objective Data Objective Data Vital Signs: Vital Signs Temp Pulse Resp BP 96.5 F L 97 16 111/61 06/13/21 13:57 06/13/21 13:57 05/12/21 00:22 06/13/21 13:57 Weight: 138 lb 8 oz Body Mass Index (BMI) 19.5 Charges/Coding Procedures Integumentary [id number]: [id number] Tatiana subq tissue 20 sq cm/< Physical Exam Const alert and oriented x3 General Appearance: cooperative HEENT normocephalic Head and Scalp: atraumatic Eyes PERRL Lymph Lymphatic: no lymphedema noted Resp normal respiratory effort Cardio regular rate GI non-tender Palpation: soft Extremity normal capillary refill Extremity Narrative: Good ROM of lower leg extremities. Skin Wound Narrative: Left lateral thigh ulcer is superficial with good granulation. New wound cluster on right medial foot proximal to great toe has two open wounds. Able to bend toes without difficulty. Neuro CN's II-XII intact bilaterally Psych Appearance: grossly normal Debridement Note Debridement Note Post-Debridement Measurements and Additional Note: Post-Debridement Measurements/Treatment - Nurse 1 - General Ulcer Assessment Start: 06/13/21 13:55 Freq: Status: Active Protocol: RIK Activity Type Activity Date Activity User E-Sign Co-Sign Detail Recorded Client Recorded Date Recorded By Document 06/13/21 13:57 ELVIS [id number] 06/13/21 14:02 KR 06/13/21 13:57 - Today's Visit Information Type of service Follow-up Visit (Physician/[employer] ) Height and Weight Body Mass Index (BMI) 19.5 BMI Classification Normal Vital Signs Temperature (97.8 F-99.1 F) 96.5 F L Temperature Source Temporal Pulse Rate (60-100) 97 Pulse Location Monitor Blood Pressure (90/60-120/80) 111/61 Blood Pressure Mean (mm Hg) 77 Source Monitor Position Semi-Fowlers Blood Pressure Location Left Arm History Since Last Visit- (Skip if this is Patient's initial visit) Have you changed medications since your No last visit? Any new allergies or adverse reactions No Had a fall/change in ADL's that may No increase risk of falls Signs or symptoms of abuse and/or No neglect since last visit Have you been in the hospital since your No last visit? Has dressing in place as prescribed Yes Has offloadiing in place as prescribed N/A Experienced any changes in pain level or No management Left Footwear Regular Shoe Right Footwear Regular Shoe Pain Scale: 0-10 Numeric Is Patient Pain Free? Yes - Nurse 1 - General Ulcer Measurement Start: 06/13/21 13:55 Freq: Status: Active Protocol: Activity Type Activity Date Activity User E-Sign Co-Sign Detail Recorded Client Recorded Date Recorded By Document 06/13/21 13:57 KR [id number] 06/13/21 14:02 ELVIS 06/13/21 13:57 Wound Center Nurse 1 #2 Right medial foot cluster -Current Size (cm) - Length 0.3 -Current Size (cm) - Width 1.8 -Current Size (cm) - Depth 0.1 -Total Square Cm 0.54 -Exudate Amt Small -Exudate Type Serosanguineous -Wound Margin Distinct, Outline Attached -Granulation Amt Small (1-33%) -Granulation Quality [place] -Necrosis Amt Small (1-33%) -Necrotic Tissue Type Adherent Slough -Texture (Summer-wound Skin Appearance) Assessed, Scarring -Moisture (Summer-wound Skin Appearance) No Abnormality, Assessed -Color (Summer-wound Skin Appearance) No Abnormality, Assessed -Temperature (Summer-wound Skin No Abnormality Appearance) (Pt Warm) -Tenderness on Palpation (Summer-wound No Skin Appearance) -Ulcer Cleansing Rinsed/ Irrigated with Saline -Foul Odor after Cleansing No -Anesthetic Used 5% Lidocaine Gel 1 left post thigh -Current Size (cm) - Length 1.2 -Current Size (cm) - Width 0.8 -Current Size (cm) - Depth 0.1 -Total Square Cm 0.96 -Exudate Amt None Present -Wound Margin Distinct, Outline Attached -Granulation Amt Small (1-33%) -Granulation Quality Red -Necrosis Amt None Present (0 %) -Texture (Summer-wound Skin Appearance) Assessed, Scarring -Moisture (Summer-wound Skin Appearance) Assessed -Color (Summer-wound Skin Appearance) No Abnormality, Assessed -Temperature (Summer-wound Skin No Abnormality Appearance) (Pt Warm) -Ulcer Cleansing Rinsed/ Irrigated with Saline -Foul Odor after Cleansing No -Anesthetic Used 5% Lidocaine Gel WC - Nurse 2 - General Ulcer CM Notes Start: 06/13/21 13:55 Freq: Status: Active Protocol: Activity Type Activity Date Activity User E-Sign Co-Sign Detail Recorded Client Recorded Date Recorded By Document 06/13/21 14:22 ROSE [id number] 06/13/21 14:27 ROSE 06/13/21 14:22 Wound Center Nurse 2 #2 Right medial foot cluster -Time 14:23 -Correct Patient Yes -Correct Side, Site, Position Yes -Correct Procedure Yes -Procedure Performed Yes -Type of Procedure Incision & Drainage -Clinical Debridement Subcutaneous -Tissue Removed Subcutaneous -Post Debridement (cm) - Length 1.9 -Post Debridement (cm) - Width 0.7 -Post Debridement (cm) - Depth 0.2 -Total Square (Post) (cm) 1.33 -Area of Debridement (cm) - Length 1.9 -Area of Debridement (cm) - Width 0.7 -Total Square (Area) (cm) 1.33 -Tunneling No -Undermining/Tunneling No -Circular Undermining No -Wound/Ulcer Outcome Not Healed -Ulcer Cleansing Rinsed/ Irrigated with Saline -Foul Odor after Cleansing No -Bioengineered Tissue No -Bleeding Controlled with Pressure -Offloading No -Treatment Response Procedure Tolerated Well -Debridement - Subq, 1st 20sq cm No 1 left post thigh -Time 14:23 -Correct Patient Yes -Correct Side, Site, Position Yes -Correct Procedure Yes -Procedure Performed Yes -Type of Procedure Debridement -Clinical Debridement Subcutaneous -Tissue Removed Subcutaneous -Post Debridement (cm) - Length 3 -Post Debridement (cm) - Width 2 -Post Debridement (cm) - Depth 0.1 -Total Square (Post) (cm) 6 -Area of Debridement (cm) - Length 3 -Area of Debridement (cm) - Width 2 -Total Square (Area) (cm) 6 -Tunneling No -Undermining/Tunneling No -Circular Undermining No -Wound/Ulcer Outcome Not Healed -Ulcer Cleansing Rinsed/ Irrigated with Saline -Foul Odor after Cleansing No -Bioengineered Tissue No -Bleeding Controlled with Pressure -Offloading No -Treatment Response Procedure Tolerated Well -Debridement - Subq, 1st 20sq cm Yes Pain Scale: 0-10 Numeric Is Patient Pain Free? Yes - Nurse 3 - General Ulcer D/C NN Start: 06/13/21 13:55 Freq: Status: Active Protocol: Activity Type Activity Date Activity User E-Sign Co-Sign Detail Recorded Client Recorded Date Recorded By Document 06/13/21 14:47 ELVIS [id number] 06/13/21 14:48 ELVIS 06/13/21 14:47 Wound Care Nurse 3 #2 Right medial foot cluster -Primary Dressing Applied Aquacel AG 4x4 -Primary Dressing Covered/Secured with Dry Gauze, Secured with Tape -Aquacel AG 4x4 1 1 left post thigh -Ulcer Cleansing Rinsed/ Irrigated with Saline -Primary Dressing Applied C Hydrogel ($) -Primary Dressing Covered/Secured with Dry Gauze, Secured with Tape Pain Scale: 0-10 Numeric Is Patient Pain Free? Yes WC - Visit Discharge Discharge Condition Stable Ambulatory Status Ambulatory Transportation Private Auto Wound debrided: Left lateral thigh ulcer Type of Debridement: Excisional debridement Anesthesia Used: 5% Lidocaine Gel Depth: Down to and including healthy tissue and in the subcutaneous layer Percentage of wound debrided: 100 Instrument Used: 5mm curette Tissue Removed: Subcutaneous tissue and slough Severity: Limited To Skin Breakdown Bleeding Controlled with: Pressure Patient tolerated procedure: Patient tolerated procedure well Additional Wound Wound debrided: Medial foot, proximal to great toe Laterality: Right Type of Debridement: Excisional debridement Anesthesia Used: 5% Lidocaine Gel Depth: Down to and including healthy tissue and in the subcutaneous layer Percentage of wound debrided: 100 Instrument Used: 3mm curette Tissue Removed: Subcutaneous tissue and slough Severity: Fat Layer Exposed Amount of bleeding with debridement: Mild Bleeding Controlled with: Pressure Patient tolerated procedure: Patient tolerated procedure well Assessment/Plan Assessment/Plan (1) 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 Patient did not return to the wound center for a month after Theraskin was placed due to transportation issues. Stopped the Theraskin. Collagen hydrogel covered by gauze dressing daily to left lateral thigh. Has a new wound on right medial foot proximal to great toe. Place silver alginate to the toe daily and cover with gauze. SUSHIL wrap for compression. 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 He has put on almost 20 lbs since he was last weighed. Surgical wound cultures positive for Rhizopus species, Klebsiella pneumoniae, and Anaerobic cocci. ID was consulted and he was on Doxycycline and Unasyn while hospitalized and was discharged on Augmentin and Doxycycline which he has completed. Stressed the importance of increased protein. Follow-up in 1 week.
[2021-06-20 13:19] VITALS: BP 114/76; PULSE 110; RESP 22; TEMP 36.5; BMI 19.5
--- NOTE | 2021-06-20 13:43 | PCM.WC.PN ---
History of Present Illness Date of Service: 06/20/21 Chief Complaint: None healing postsurgical wound status post abscess incision and drainage by Dr. Laura on 12/10/2020 and I&D on 12/24/[address] Landin. History of Wound: Surgery 12/24/20 - Surgical preparation left posterior thigh with incision and drainage and excisional debridement nonhealing infected necrotic diabetic ulcer with abscess including necrotic muscle (276 cm2). Wound care - Theraskin #1 on February 14. Patient did not return to the wound center for a month after Theraskin was placed due to transportation issues. Stopped the Theraskin. Silver alginate covered by gauze daily to the left lateral thigh. Collagen hydrogel covered by gauze dressing daily to the right medial foot proximal to great toe. SUSHIL wrap for compression. Surgical wound cultures positive for Rhizopus species, Klebsiella pneumoniae, and Anaerobic cocci. ID was consulted and he was on Doxycycline and Unasyn while hospitalized and was discharged on Augmentin and Doxycycline which he has completed. Prealbumin on 12/27/20 was 10.1. Encouraged protein supplementation to help with wound healing. When he was discharged, on 12/28/20, he went to [facility]. He was readmitted to the hospital on 01/24/2021 and discharged on 01/27/2021 for DKA. I ordered a dietary consult. I am unsure if he ever followed through with meeting with them. I will reorder the dietary consult. He has lost over 30 lbs since November. Today he denies fever. He states his appetite is good. Progress of Wound: Left lateral thigh has hypergranulation and does not look as good this week. The new right medial foot wound proximal to toe wound is improved and no longer a cluster. Objective Data Objective Data Vital Signs: Vital Signs Temp Pulse Resp BP 97.7 F L 110 H 22 H 114/76 06/20/21 13:19 06/20/21 13:19 06/20/21 13:19 06/20/21 13:19 Weight: 138 lb 8 oz Body Mass Index (BMI) 19.5 Charges/Coding Procedures Integumentary 111xxx-113xx: 12784 Tatiana subq tissue 20 sq cm/< Physical Exam Const alert and oriented x3 HEENT normocephalic Lymph Lymphatic: no lymphedema noted Resp normal respiratory effort Cardio regular rate GI non-tender Palpation: soft Extremity normal capillary refill Skin Wound Narrative: Left lateral thigh ulcer with hypergranulation and not as beefy red as it previously was. The right medial foot proximal to the great toe is no longer a cluster, there is only one open wound. Neuro CN's II-XII intact bilaterally Psych Appearance: grossly normal Debridement Note Debridement Note Post-Debridement Measurements and Additional Note: Post-Debridement Measurements/Treatment WC - Nurse 1 - General Ulcer Assessment Start: 06/13/21 13:55 Freq: Status: Active Protocol: RIK Activity Type Activity Date Activity User E-Sign Co-Sign Detail Recorded Client Recorded Date Recorded By Document 06/13/21 13:57 KR [id number] 06/13/21 14:02 KR Document 06/20/21 13:19 DL [id number] 06/20/21 13:22 DL 06/13/21 06/20/21 13:57 13:19 - Today's Visit Information Type of service Follow-up Visit Follow-up Visit (Physician/DIRECT CARE SPECIALIST (Physician/DIRECT CARE SPECIALIST ) ) Arrival Mode Ambulatory Transfer Assistance None Patient Identification Verified (Name & Yes ) Patient Requires Transmission-Based No Precautions Finger Stick Blood Sugar(mg/dl) (if 116 indicated): Blood Sugar Stated by Patient Height and Weight Body Mass Index (BMI) 19.5 19.5 BMI Classification Normal Normal Vital Signs Temperature (97.8 F-99.1 F) 96.5 F L 97.7 F L Temperature Source Temporal Temporal Pulse Rate (60-100) 97 110 H Pulse Location Monitor Radial Respiratory Rate (12-18) 22 H Respiratory rate source Observation Blood Pressure (90/60-120/80) 111/61 114/76 Blood Pressure Mean (mm Hg) 77 88 Source Monitor Monitor Position Semi-Fowlers Blood Pressure Location Left Arm History Since Last Visit- (Skip if this is Patient's initial visit) Have you changed medications since your No No last visit? Any new allergies or adverse reactions No No Had a fall/change in ADL's that may No No increase risk of falls Signs or symptoms of abuse and/or No No neglect since last visit Have you been in the hospital since your No No last visit? Has dressing in place as prescribed Yes Yes Has compression in place as prescribed N/A Has offloadiing in place as prescribed N/A Yes Experienced any changes in pain level or No No management Left Footwear Regular Shoe Right Footwear Regular Shoe Pain Scale: 0-10 Numeric Is Patient Pain Free? Yes Yes WC - Nurse 1 - General Ulcer Measurement Start: 06/13/21 13:55 Freq: Status: Active Protocol: Activity Type Activity Date Activity User E-Sign Co-Sign Detail Recorded Client Recorded Date Recorded By Document 06/13/21 13:57 KR [id number] 06/13/21 14:02 KR Document 06/20/21 13:19 DL [id number] 06/20/21 13:22 DL 06/13/21 06/20/21 13:57 13:19 Wound Center Nurse 1 #2 Right medial foot cluster -Current Size (cm) - Length 0.3 0.2 -Current Size (cm) - Width 1.8 0.2 -Current Size (cm) - Depth 0.1 0.1 -Total Square Cm 0.54 0.04 -Photo Taken No -Exudate Amt Small None Present -Exudate Type Serosanguineous -Wound Margin Distinct, Distinct, Outline Outline Attached Attached -Granulation Amt Small (1-33%) Small (1-33%) -Granulation Quality [place] Red -Necrosis Amt Small (1-33%) Small (1-33%) -Necrotic Tissue Type Adherent Slough -Structure Exposed None/Limited to Skin Breakdown -Texture (Summer-wound Skin Appearance) Assessed, Scarring Scarring -Moisture (Summer-wound Skin Appearance) No Abnormality, Dry/Scaly Assessed -Color (Summer-wound Skin Appearance) No Abnormality, No Abnormality Assessed -Temperature (Summer-wound Skin No Abnormality No Abnormality Appearance) (Pt Warm) (Pt Warm) -Tenderness on Palpation (Summer-wound No No Skin Appearance) -Ulcer Cleansing Rinsed/ Rinsed/ Irrigated with Irrigated with Saline Saline -Foul Odor after Cleansing No No -Anesthetic Used 5% Lidocaine 4% Lidocaine Gel Solution 1 left post thigh -Current Size (cm) - Length 1.2 3.9 -Current Size (cm) - Width 0.8 2.5 -Current Size (cm) - Depth 0.1 0.1 -Total Square Cm 0.96 9.75 -Photo Taken No -Exudate Amt None Present Medium -Exudate Type Serosanguineous -Wound Margin Distinct, Distinct, Outline Outline Attached Attached -Granulation Amt Small (1-33%) Large (67-100%) -Granulation Quality Red Red -Necrosis Amt None Present (0 None Present (0 %) %) -Structure Exposed N/A -Texture (Summer-wound Skin Appearance) Assessed, Scarring Scarring -Moisture (Summer-wound Skin Appearance) Assessed No Abnormality -Color (Summer-wound Skin Appearance) No Abnormality, Assessed Assessed -Temperature (Summer-wound Skin No Abnormality No Abnormality Appearance) (Pt Warm) (Pt Warm) -Ulcer Cleansing Rinsed/ Wound Cleanser Irrigated with Saline -Foul Odor after Cleansing No No -Anesthetic Used 5% Lidocaine 4% Lidocaine Gel Solution WC - Nurse 2 - General Ulcer CM Notes Start: 06/13/21 13:55 Freq: Status: Active Protocol: Activity Type Activity Date Activity User E-Sign Co-Sign Detail Recorded Client Recorded Date Recorded By Document 06/13/21 14:22 [id number] 06/13/21 14:27 Document 06/20/21 13:35 [id number] 06/20/21 13:39 06/13/21 06/20/21 14:22 13:35 Wound Center Nurse 2 #2 Right medial foot cluster -Time 14:23 13:36 -Correct Patient Yes Yes -Correct Side, Site, Position Yes Yes -Correct Procedure Yes Yes -Procedure Performed Yes Yes -Type of Procedure Incision & Debridement Drainage -Clinical Debridement Subcutaneous Subcutaneous -Tissue Removed Subcutaneous Subcutaneous -Post Debridement (cm) - Length 1.9 0.4 -Post Debridement (cm) - Width 0.7 0.5 -Post Debridement (cm) - Depth 0.2 0.2 -Total Square (Post) (cm) 1.33 0.20 -Area of Debridement (cm) - Length 1.9 0.4 -Area of Debridement (cm) - Width 0.7 0.5 -Total Square (Area) (cm) 1.33 0.20 -Tunneling No No -Undermining/Tunneling No No -Circular Undermining No No -Wound/Ulcer Outcome Not Healed Not Healed -Ulcer Cleansing Rinsed/ Rinsed/ Irrigated with Irrigated with Saline Saline -Foul Odor after Cleansing No No -Bioengineered Tissue No No -Bleeding Controlled with Pressure Pressure -Offloading No No -Treatment Response Procedure Procedure Tolerated Well Tolerated Well -Debridement - Subq, 1st 20sq cm No No 1 left post thigh -Time 14:23 13:36 -Correct Patient Yes Yes -Correct Side, Site, Position Yes Yes -Correct Procedure Yes Yes -Procedure Performed Yes Yes -Type of Procedure Debridement Debridement -Clinical Debridement Subcutaneous Subcutaneous -Tissue Removed Subcutaneous Subcutaneous -Post Debridement (cm) - Length 3 3.4 -Post Debridement (cm) - Width 2 2.1 -Post Debridement (cm) - Depth 0.1 1 -Total Square (Post) (cm) 6 7.14 -Area of Debridement (cm) - Length 3 3.4 -Area of Debridement (cm) - Width 2 2.1 -Total Square (Area) (cm) 6 7.14 -Tunneling No No -Undermining/Tunneling No No -Circular Undermining No No -Wound/Ulcer Outcome Not Healed Not Healed -Ulcer Cleansing Rinsed/ Rinsed/ Irrigated with Irrigated with Saline Saline -Foul Odor after Cleansing No No -Bioengineered Tissue No No -Bleeding Controlled with Pressure Pressure -Offloading No No -Treatment Response Procedure Procedure Tolerated Well Tolerated Well -Debridement - Subq, 1st 20sq cm Yes Yes Pain Scale: 0-10 Numeric Is Patient Pain Free? Yes Yes - Nurse 3 - General Ulcer D/C NN Start: 06/13/21 13:55 Freq: Status: Active Protocol: Activity Type Activity Date Activity User E-Sign Co-Sign Detail Recorded Client Recorded Date Recorded By Document 06/13/21 14:47 ELVIS [id number] 06/13/21 14:48 Document 06/20/21 13:39 [id number] 06/20/21 13:40 06/13/21 06/20/21 14:47 13:39 Wound Care Nurse 3 #2 Right medial foot cluster -Ulcer Cleansing Rinsed/ Irrigated with Saline -Foul Odor after Cleansing No -Primary Dressing Applied Aquacel AG 4x4 C Hydrogel ($) -Primary Dressing Covered/Secured with Dry Gauze, Dry Gauze, Secured with Secured with Tape Tape -Aquacel AG 4x4 1 1 left post thigh -Ulcer Cleansing Rinsed/ Irrigated with Saline -Foul Odor after Cleansing No -Primary Dressing Applied C Hydrogel ($) Aquacel AG 4x4 -Primary Dressing Covered/Secured with Dry Gauze, Dry Gauze, Secured with Secured with Tape Tape -Aquacel AG 4x4 1 Pain Scale: 0-10 Numeric Is Patient Pain Free? Yes Yes WC - Visit Discharge Discharge Condition Stable Stable Ambulatory Status Ambulatory Ambulatory Transportation Private Auto Private Auto Medication Reconcilliation completed & Yes provided to patient/care provider Clinical Summary of Care Provided Yes Wound debrided: Lateral leg ulcer Laterality: Left Type of Debridement: Excisional debridement Anesthesia Used: 5% Lidocaine Gel Depth: Down to and including healthy tissue and in the subcutaneous layer Percentage of wound debrided: 100 Instrument Used: 5mm curette Tissue Removed: Subcutaneous tissue and slough Severity: Fat Layer Exposed Amount of bleeding with debridement: Mild Bleeding Controlled with: Pressure Patient tolerated procedure: Patient tolerated procedure well Additional Wound Wound debrided: medial foot proximal to great toe Laterality: Right Type of Debridement: Excisional debridement Anesthesia Used: 5% Lidocaine Gel Depth: Down to and including healthy tissue and in the subcutaneous layer Percentage of wound debrided: 100 Instrument Used: 3mm curette Tissue Removed: Subcutaneous tissue and slough Severity: Fat Layer Exposed Amount of bleeding with debridement: Mild Bleeding Controlled with: Pressure Patient tolerated procedure: Patient tolerated procedure well Assessment/Plan Assessment/Plan (1) 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 Patient did not return to the wound center for a month after Theraskin was placed due to transportation issues. Stopped the Theraskin. Silver alginate covered by gauze dressing daily to left lateral thigh. Collagen hydrogel to the right toe wound daily and cover with gauze. SUSHIL wrap for compression. He has been seeing a web application tester. He has put on almost 20 lbs since he was last weighed. Surgical wound cultures positive for Rhizopus species, Klebsiella pneumoniae, and Anaerobic cocci. ID was consulted and he was on Doxycycline and Unasyn while hospitalized and was discharged on Augmentin and Doxycycline which he has completed. Stressed the importance of increased protein. Follow-up in 2 week.
== END 2021-07-12 23:59 ==
LOC: WC 13:15
PROVIDERS: PCP Pediatrics; Referring Provider Surgery; Visit Provider Nurse Practitioner Family
DX: E10.621 Type 1 diabetes mellitus with foot ulcer (principal); E10.622 Type 1 diabetes mellitus with other skin ulcer; L97.121 Non-pressure chronic ulcer of left thigh limited to breakdown of skin; L97.512 Non-pressure chronic ulcer of other part of right foot with fat layer exposed; Z91.19 Patient's noncompliance with other medical treatment and regimen
CPT/HCPCS: 11042

== ENCOUNTER 2021-07-28 15:51 | Emergency (ER) | payer MEDICAID, SELFPAY ==
[2021-07-28 15:51] VITALS: BP 107/73; PULSE 98; RESP 16; TEMP 36.9; O2SAT 100; BMI 19.6
[2021-07-28 16:32] LABS: Bedside Glucose > 500 mg/dL (70-110)
--- NOTE | 2021-07-28 17:07 | EKG12_ITS ---
Test Reason : HYPERGLYCEMIA Blood Pressure : / mmHG Vent. Rate : 077 BPM Atrial Rate : 077 BPM P-R Int : 132 ms QRS Dur : 094 ms QT Int : 390 ms P-R-T Axes : 052 068 049 degrees QTc Int : 441 ms Normal sinus rhythm Normal ECG Confirmed by KEYANA CASTILLO, SEBASTIÁN ([id number]), supervising editor trailer AYESHA VALLE ([id number]) on 07/29/2021 1:10:40 PM Referred By: AZAR/HARINDER Confirmed By:SEBASTIÁN RIDLEY MD
--- NOTE | 2021-07-28 17:07 | RAD_ITS ---
STUDY: X-RAY CHEST REASON FOR EXAM: Male, 20 years old. DKA TECHNIQUE: AP portable COMPARISON: 01/24/2021 FINDINGS: The lungs are clear and expanded. There is no demonstrated pleural abnormality. Normal size heart. Normal mediastinum and rudi. Normal visualized pulmonary arteries. Normal visualized aortic arch and descending thoracic aorta. Normal visualized thoracic spine. Normal visualized ribs, clavicles, and shoulders. There is no demonstrated abnormality of the visualized soft tissue structures of the upper abdomen. No significant change since prior exam status post removal of left central line RAD/Chest 1 View IMPRESSION: No acute cardio pulmonary pathology Electronically Signed: Jef Rogers MD at 18:20 EDT , Service support ,
[2021-07-28] MEDS: 0.9% Normal Saline 1,000 ML 500 ML IV (17:17)
[2021-07-28 17:54] LABS: ALB/GLOB Ratio 1.2 RATIO (0.9-2.4); AST(SGOT) 8 U/L (15-37); Alanine Aminotransfer ALT/SGPT 20 U/L (16-61); Albumin, Serum 3.8 g/dL (3.2-5.0); Alkaline Phosphatase 127 U/L (45-117); Anion Gap 16 (5-15); BUN 8 mg/dL (7-18); BUN/Creat Ratio 8.6 RATIO (10-20); Calcium,Total 8.3 mg/dL (8.5-10.1); Chloride 97 mmol/L (98-107); Creatinine, Serum 0.92 mg/dL (0.70-1.30); EST Glomerular Filtration Rate 110 mL/min (>60); Est Glom Filt Rate - Afr Amer 133 mL/min (>60); Estimated Creatinine Clearance 125.72 ml/min; Globulin 3.1 g/dL (2.2-4.2); Glucose 382 mg/dL (74-106); Potassium 3.2 mmol/L (3.5-5.1); Protein, Total 6.9 g/dL (6.4-8.2); Sodium Level 132 mmol/L (136-145)
[2021-07-28 18:04] LABS: Absolute Lymphocyte Count 1.04 X10^3/uL (0.83-4.51); Absolute Neutrophil Count 2.2 X10^3/uL (2.0-7.7); Basophil# 0.05 X10^3/uL; Basophil% 1.3 % (0-1); Eosinophil# 0.07 X10^3/uL; Eosinophils% 1.8 % (0-5); Hematocrit 40.2 % (40-54); Hemoglobin 14.8 g/dL (13.0-16.5); Lymphocyte # 1.04 X10^3/ul (0.83-4.51); Lymphocyte % 27.1 % (19-41); Mean Corp Hgb Conc 36.8 g/dL (32-36); Mean Corpuscular Hgb 31.8 pg (27.0-32.0); Mean Corpuscular Volume 86.3 fL (80-94); Mean Platelet Vol. 9.3 fl (6.2-12.0); Monocyte# 0.43 X10^3/uL; Monocyte% 11.2 % (0-10); NRBC Flagged by Analyzer 0 % (0-5); Neutrophil # 2.18 X10^3/uL (2.7-7.7); Neutrophil % 56.8 % (47-70); Platelet Count 290 K/mm3 (150-450); RBC Distribution Width CV 12.4 % (11.6-14.6); RBC Distribution Width SD 38.6 fl (35.1-43.9); Red Blood Count 4.66 M/mm3 (4.6-6.2); White Blood Count 3.8 K/mm3 (4.4-11.0)
[2021-07-28 19:18] VITALS: BP 100/52; PULSE 78; RESP 18; O2SAT 99
--- NOTE | 2021-07-28 20:15 | EX.ED.DYSGE1 ---
HPI History of Present Illness Chief Complaint: Hyperglycemia Narrative Narrative: 20-year-old male with history of type 1 diabetes presenting with hyperglycemia. Patient states that he does not feel sick. Patient states he was told by Dr. Galindo to come to the ER because his glucometer read high. Patient currently states that he is hungry and is not nauseous. He has not had any fever or chills. He does not have abdominal pain. [facility]LY [facility] PFS Medical History Asthma Asthma Diabetes Diabetes mellitus type 1 Diabetes mellitus with ketoacidosis femur surgery Nonhealing surgical wound Ulcer of leg, chronic Unspecified open wound, left thigh, subsequent encounter Home Medications albuterol sulfate 2 puff INHALATION Q4H PRN PRN 02/15/19 [History Last Taken 12/09/20] acetaminophen 650 mg PO Q6H PRN PRN udc 12/28/20 [Rx Last Taken 01/24/21] potassium chloride 20 meq PO BID 01/24/21 [History Last Taken 01/24/21] insulin glargine 100 unit/mL (3 mL) subcutaneous pen 25 unit SC DAILY #15 ml 01/28/21 [Rx Last Taken Unknown] amoxicillin-pot clavulanate 875 mg PO Q12H #20 tab 02/18/21 [Rx Last Taken Unknown] Lantus Solostar U-100 Insulin 25 unit SUBCUT QHS #15 ml 03/20/21 [Rx Last Taken Unknown] cephalexin 500 mg PO Q6 #40 capsule 05/31/21 [Rx Last Taken Unknown] omeprazole 20 mg PO DAILY 05/31/21 [History Last Taken Unknown] blood sugar diagnostic #200 ea 06/16/21 [Rx Last Taken Unknown] insulin lispro 100 unit/mL subcutaneous pen 30 unit SUBCUT TID #15 ml 06/16/21 [Rx Last Taken Unknown] Allergy/AdvReac Type Severity Reaction Status Date / Time Milk Containing Products AdvReac Diarrhea Verified 07/28/21 15:51 Family History Other Asthma CVA (cerebral vascular accident) Diabetes Hypertension Thyroid disorder Surgical History Hx of knee surgery Social History Smoking Status: Never smoker alcohol intake: never ROS ROS ED Constitutional Constitutional ED: Denies chills or fever(s) Eyes Eyes: Denies blurry vision or diplopia ENT ENT ED: Denies rhinorrhea or sore throat Cardiovascular Cardiovascular: Denies chest pain or palpitations Respiratory/Chest Respiratory/Chest: Denies cough or dyspnea Gastrointestinal Gastrointestinal: Denies abdominal pain or nausea Genitourinary Genitourinary ED: Denies dysuria or hematuria Musculoskeletal Musculoskeletal: Denies arthralgias or myalgias Integumentary Denies Abrasions or rash Neurologic Neurologic: Denies headache(s) or paresthesias EXAM Physical Exam Const Vital Signs: 07/28/21 15:51 07/28/21 19:18 07/28/21 19:19 Temperature 98.5 F Temperature Source Temporal Pulse Rate 98 78 Respiratory Rate 16 18 Respiratory Effort Normal Non-Labored Blood Pressure 107/73 100/52 L Blood Pressure Mean 84 68 Pulse Ox 100 99 Oxygen Delivery Method Room Air Room Air 07/28/21 21:15 Temperature Temperature Source Pulse Rate 81 Respiratory Rate 18 Respiratory Effort Blood Pressure 106/72 Blood Pressure Mean 83 Pulse Ox 98 Oxygen Delivery Method Positive well nourished General Appearance ED: NAD HEENT trauma and tenderness Eyes PERRL and EOMs intact bilaterally Resp normal respiratory effort and clear to auscultation bilaterally Cardio regular rate Palpation: palpable S4 GI normal to inspection, nondistended, normoactive bowel sounds Neuro oriented x3 and CN's II-XII intact bilaterally Sensorium / Orientation: alert Psych mental status grossly normal Skin no rashes or lesions noted MDM MDM MDM Narrative Medical decision making narrative: Patient presenting with hyperglycemia. Patient states that his blood sugar is always high. He has difficulty keeping this under control. 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 Patient did have an elevated blood glucose of 382. He did not have a significant anion gap. He did have moderate acetone. Patient's [id number]-[id number] glucose came down with IV fluids to 258. EKG on my interpretation shows a sinus rhythm at 77 bpm without sign of ischemic change. Chest x-ray my interpretation shows no acute cardiopulmonary process and the radiologist does agree. Patient states that he feels otherwise well request to be discharged home. His potassium was repleted. He is counseled to take his medications as indicated. He is given return precautions. Impression: 1. Hyperglycemia 2. Hypokalemia Lab Data Labs: Laboratory Results - last 24 hr 07/28/21 07/28/21 07/28/21 15:42 17:15 17:15 WBC 3.8 L RBC 4.66 Hgb 14.8 Hct 40.2 MCV 86.3 MCH 31.8 MCHC 36.8 H RDW Std Deviation 38.6 RDW Coeff of Rabia 12.4 Plt Count 290 MPV 9.3 Immature Gran % (Auto) 1.800 H Neut % (Auto) 56.8 Lymph % (Auto) 27.1 Sandoval % (Auto) 11.2 H Eos % (Auto) 1.8 Baso % (Auto) 1.3 H Absolute Neuts (auto) 2.2 Absolute Lymphs (auto) 1.04 Nucleated RBC % 0 Sodium 132 L Potassium 3.2 L Chloride 97 L Carbon Dioxide 19.0 L Anion Gap 16 H BUN 8 Creatinine 0.92 Estim Creat Clear Calc 125.72 Est GFR (MDRD) Af Amer 133 Est GFR (MDRD) Non-Af 110 BUN/Creatinine Ratio 8.6 L Glucose 382 H Calcium 8.3 L Total Bilirubin 1.10 H AST 8 L ALT 20 Alkaline Phosphatase 127 H Total Protein 6.9 Albumin 3.8 Globulin 3.1 Albumin/Globulin Ratio 1.2 Acetone Level POC Glucose > 500 H* 07/28/21 07/28/21 17:15 20:25 WBC RBC Hgb Hct MCV MCH MCHC RDW Std Deviation RDW Coeff of Rabia Plt Count MPV Immature Gran % (Auto) Neut % (Auto) Lymph % (Auto) [place] % (Auto) Eos % (Auto) Baso % (Auto) Absolute Neuts (auto) Absolute Lymphs (auto) Nucleated RBC % Sodium Potassium Chloride Carbon Dioxide Anion Gap BUN Creatinine Estim Creat Clear Calc Est GFR (MDRD) Af Amer Est GFR (MDRD) Non-Af BUN/Creatinine Ratio Glucose Calcium Total Bilirubin AST ALT Alkaline Phosphatase Total Protein Albumin Globulin Albumin/Globulin Ratio Acetone Level MODERATE H POC Glucose 258 H Radiography Diagnostic Testing: Radiology Impression Chest X-Ray 07/28/21 17:07 IMPRESSION: No acute cardio pulmonary pathology Electronically Signed: Jef Rogers MD at 18:20 EDT , Service support , Discharge Plan Triage Chief Complaint: Hyperglycemia ED Provider: Burton Pradhan Dx/Rx/DC Orders Instructions: ED Diabetic Hyperglycemia Prescriptions: No Action insulin lispro [Humalog KwikPen Insulin] 100 unit/mL insulin pen 30 unit subcut TID Qty: 15 RF: 6 (DME) OneTouch Verio test strips Strip See Rx Instructions .ROUTE .MEDSUPPLY Qty: 200 RF: 6 albuterol sulfate 1 INHALER inhaler 2 puff INHALATION Q4H PRN PRN (Reason: Wheezing) RF: 0 acetaminophen 650 MG/20 ML solution 650 mg PO Q6H PRN PRN (Reason: Pain Score 1-3 /Temp>100.7) RF: 0 potassium chloride 20 MEQ tablet 20 meq PO BID RF: 0 amoxicillin-pot clavulanate 875 MG tablet 875 mg PO Q12H Qty: 20 RF: 0 Lantus Solostar U-100 Insulin 100 unit/mL (3 mL) Insulin Pen 25 unit subcut QHS Qty: 15 RF: 0 omeprazole 20 mg Capsule,Delayed Release(Dr/Ec) 20 mg PO DAILY RF: 0 cephalexin [cephalexin] 500 MG capsule 500 mg PO Q6 Qty: 40 RF: 0 Lantus Solostar U-100 Insulin 100 unit/mL (3 mL) insulin pen 25 unit SC DAILY Qty: 15 RF: 4 Primary Care Provider: Tori Butler Referrals: Tori Butler MD [Primary Care Provider] - Disposition Disposition: Home, Self Care
[2021-07-28] MEDS: Potassium Chloride Oral Tablet 20 MEQ 40 MEQ PO (20:22)
[2021-07-28 20:31] LABS: Bedside Glucose 258 mg/dL (70-110)
[2021-07-28 21:15] VITALS: BP 106/72; PULSE 81; RESP 18; O2SAT 98
== END 2021-07-28 23:10 | disposition home or self-care (01) ==
PROVIDERS: Emergency Provider Student in an Organized Health Care Education/Training Program; PCP Pediatrics
DX: R73.9 Hyperglycemia, unspecified (principal); E87.6 Hypokalemia
CPT/HCPCS: 71045; 80053; 82009; 82962; 85025; 93005; 99283; J7030

== ENCOUNTER 2021-09-15 17:27 | Emergency (ER) | payer MEDICAID, SELFPAY ==
[2021-09-15 17:28] VITALS: BP 114/87; PULSE 130; RESP 18; TEMP 36.6; O2SAT 96; BMI 19.5
[2021-09-15] MEDS: Ondansetron 4 MG/2 ML Vial IV (18:27)
[2021-09-15 18:28] LABS: Absolute Lymphocyte Count 1.24 X10^3/uL (0.83-4.51); Absolute Neutrophil Count 1.9 X10^3/uL (2.0-7.7); Basophil# 0.05 X10^3/uL; Basophil% 1.3 % (0-1); Eosinophil# 0.14 X10^3/uL; Eosinophils% 3.6 % (0-5); Hematocrit 43.2 % (40-54); Hemoglobin 15.3 g/dL (13.0-16.5); Lymphocyte # 1.24 X10^3/ul (0.83-4.51); Mean Corp Hgb Conc 35.4 g/dL (32-36); Mean Corpuscular Hgb 29.3 pg (27.0-32.0); Mean Corpuscular Volume 82.8 fL (80-94); Mean Platelet Vol. 9.6 fl (6.2-12.0); Monocyte# 0.51 X10^3/uL; Monocyte% 13.2 % (0-10); NRBC Flagged by Analyzer 0 % (0-5); Neutrophil # 1.92 X10^3/uL (2.7-7.7); Neutrophil % 49.6 % (47-70); Platelet Count 305 K/mm3 (150-450); RBC Distribution Width CV 11.9 % (11.6-14.6); Red Blood Count 5.22 M/mm3 (4.6-6.2); White Blood Count 3.9 K/mm3 (4.4-11.0)
[2021-09-15] MEDS: 0.9% Normal Saline 1,000 ML 999 ML IV ×2 (18:30→19:35)
--- NOTE | 2021-09-15 18:32 | RAD_ITS ---
INDICATION: cough EXAMINATION/TECHNIQUE: X-RAY - XR Chest 1 View COMPARISON: 07/28/2021. FINDINGS: The lungs are clear. The cardiomediastinal silhouette is unremarkable. No pleural effusion or pneumothorax. No acute osseous abnormalities. RAD/Chest 1 View (Portable) IMPRESSION: No acute radiographic abnormalities. Electronically Signed: Jose Alberto Elkins MD at 19:01 EDT Tel , Service support ,
[2021-09-15 18:41] LABS: AST(SGOT) 8 U/L (15-37); Alanine Aminotransfer ALT/SGPT 17 U/L (16-61); Albumin, Serum 3.8 g/dL (3.2-5.0); Alkaline Phosphatase 141 U/L (45-117); Anion Gap 8 (5-15); BUN 12 mg/dL (7-18); BUN/Creat Ratio 14.6 RATIO (10-20); Bilirubin, Direct 0.37 mg/dL (0.00-0.30); Calcium,Total 9.3 mg/dL (8.5-10.1); Chloride 103 mmol/L (98-107); Creatinine, Serum 0.82 mg/dL (0.70-1.30); EST Glomerular Filtration Rate 126 mL/min (>60); Est Glom Filt Rate - Afr Amer 153 mL/min (>60); Estimated Creatinine Clearance 136.45 ml/min; Globulin 3.4 g/dL (2.2-4.2); Glucose 240 mg/dL (74-106); Lipase 37 U/L (73-393); Potassium 3.5 mmol/L (3.5-5.1); Protein, Total 7.2 g/dL (6.4-8.2); Sodium Level 137 mmol/L (136-145)
[2021-09-15 18:50] LABS: Bacteria 0 SEEN /hpf (None Seen); Mucous, Urine 0 SEEN /hpf (<or=2+); Red Blood Cells-Urine 0 SEEN /hpf (0-5); Squamous Epithelial Cells - UA 0 SEEN /hpf (0-5); White Blood Cells 0 SEEN /hpf (0-5)
[2021-09-15 18:56] LABS: Blood Gas Specimen Type VEN; VBG BASE EXCESS 3 mmol/L (-1.0-3.5); VBG Bicarbonate 29 mmol/L (22-26); VBG PO2 20 mmHg (25-40); VBG SO2 27 % (50-70); VBG TCO2 31 mmol/L (23-33); VBG pCO2 56.8 mmHg (41-51); VBG pH 7.32 (7.32-7.42)
[2021-09-15 18:58] LABS: Color, Urine Yellow (Yellow); Glucose, Dipstick 1000 mg/dl (Normal); Ketone-Dipstick Negative (Negative); Leukocyte Esterase-Dipstick Negative /ul (Negative); Nitrite-Dipstick Negative (Negative); Occult Blood-Urine Negative /ul (Negative); Protein-Dipstick Negative (Negative); Specific Gravity, Urine 1.015 (1.002-1.030); Urine Bilirubin Dipstick Negative (Negative); Urine Clarity Clear (Clear); Urine Urobilinogen Normal (Normal)
[2021-09-15 19:15] LABS: Lactic Acid 2.8 mmol/L (0.4-1.9)
[2021-09-15 20:11] LABS: Bedside Glucose 57 mg/dL (70-110)
--- NOTE | 2021-09-15 20:27 | EX.ED.DYSGE1 ---
HPI History of Present Illness Chief Complaint: Nausea/Vomiting Narrative Narrative: Patient is a 20-year-old male with past medical history of type 1 diabetes. He reports he takes insulin for this and is not scheduled to have a pump placed for multiple months. He states he has been in DKA in the past and that today he has had bouts of of nausea with vomiting and is concerned he is progressing to DKA once again as his blood sugar read over 400 at home and therefore comes in for evaluation [facility] Medical History Asthma Asthma Diabetes Diabetes mellitus type 1 Diabetes mellitus with ketoacidosis femur surgery Nonhealing surgical wound Ulcer of leg, chronic Unspecified open wound, left thigh, subsequent encounter Home Medications albuterol sulfate 2 puff INHALATION Q4H PRN PRN 02/15/19 [History Last Taken 12/09/20] acetaminophen 650 mg PO Q6H PRN PRN udc 12/28/20 [Rx Last Taken 01/24/21] potassium chloride 20 meq PO BID 01/24/21 [History Last Taken 01/24/21] insulin glargine 100 unit/mL (3 mL) subcutaneous pen 25 unit SC DAILY #15 ml 01/28/21 [Rx Last Taken Unknown] amoxicillin-pot clavulanate 875 mg PO Q12H #20 tab 02/18/21 [Rx Last Taken Unknown] Lantus Solostar U-100 Insulin 25 unit SUBCUT QHS #15 ml 03/20/21 [Rx Last Taken Unknown] cephalexin 500 mg PO Q6 #40 capsule 05/31/21 [Rx Last Taken Unknown] omeprazole 20 mg PO DAILY 05/31/21 [History Last Taken Unknown] insulin lispro 100 unit/mL subcutaneous pen 30 unit SUBCUT TID #15 ml 06/16/21 [Rx Last Taken Unknown] blood sugar diagnostic #200 ea 09/08/21 [Rx Last Taken Unknown] pen needle, diabetic 32 gauge x #360 ea 09/08/21 [Rx Last Taken Unknown] ondansetron 4 mg PO Q8H PRN #21 tab 09/15/21 [Rx Last Taken Unknown] Allergy/AdvReac Type Severity Reaction Status Date / Time Milk Containing Products AdvReac Diarrhea Verified 09/15/21 17:33 Family History Other Asthma CVA (cerebral vascular accident) Diabetes Hypertension Thyroid disorder Surgical History Hx of knee surgery Social History Smoking Status: Never smoker alcohol intake: never ROS ROS ED Constitutional Constitutional ED: Denies chills or fever(s) ENT ENT ED: Denies sore throat Cardiovascular Cardiovascular: Denies chest pain Respiratory/Chest Respiratory/Chest: Denies cough or dyspnea Gastrointestinal Gastrointestinal: Reports nausea and vomiting; Denies abdominal pain or diarrhea Genitourinary Genitourinary ED: Denies dysuria Musculoskeletal Musculoskeletal: Denies myalgias Integumentary Denies rash Neurologic Neurologic: Denies headache(s) Hematologic/Lymphatic Hematologic/Lymphatic: Denies easy bleeding or easy bruising EXAM Physical Exam Const Vital Signs: 09/15/21 17:28 Temperature 97.9 F Temperature Source Temporal Pulse Rate 130 H Respiratory Rate 18 Blood Pressure 114/87 H Blood Pressure Mean 96 Pulse Ox 96 Oxygen Delivery Method Room Air Positive well nourished and well developed General Appearance ED: well developed HEENT Reports dry mucous membranes Mouth ED: Yes dry mucous membranes Mouth: dry mucous membranes Eyes PERRL and EOMs intact bilaterally General Eye ED: Negative for scleral icterus Neck supple Resp normal respiratory effort and clear to auscultation bilaterally Cardio regular rhythm Rate: other Other Details: Tachycardic rate with regular rhythm radial pulses are plus 2 out of 4 bilaterally they are equal and symmetric and symmetric GI normal to inspection, nondistended, normoactive bowel sounds, non-tender, non-distended and no masses GI Narrative: Soft nontender nondistended with hyperactive bowel sounds no voluntary guarding no rigidity no pulsatile mass Palpation: soft Extremity normal to inspection Neuro oriented x3 and CN's II-XII intact bilaterally Sensorium / Orientation: alert Motor Exam: strength 5/5 throughout Psych mental status grossly normal Skin no rashes or lesions noted Skin Narrative: Skin turgor slightly increased MDM MDM MDM Narrative Medical decision making narrative: Patient presented to the ER tachycardic but otherwise afebrile and had a soft nonsurgical abdomen. With his history of diabetes as well as an elevated blood sugar at home and vomiting there was concern he was progressing to DKA so a basic work-up was obtained. Patient's bicarb is normal he does not have any serum ketones present and his anion gap is also not elevated. This indicates that he is not truly in diabetic ketoacidosis. I elected to perform a chest x-ray Covid swab and urine sample was also showed no changes for infection. After IV hydration his tachycardia had resolved. Therefore I feel that the patient's symptoms are most likely dehydration related as he is not truly in DKA and his symptoms have been improved with hydration is safe for discharge Lab Data Attestation: I reviewed the patient's lab results. Labs: Laboratory Results - last 24 hr 09/15/21 09/15/21 09/15/21 17:45 17:45 17:45 WBC 3.9 L RBC 5.22 Hgb 15.3 Hct 43.2 MCV 82.8 MCH 29.3 MCHC 35.4 RDW Std Deviation 36.0 RDW Coeff of Rabia 11.9 Plt Count 305 MPV 9.6 Immature Gran % (Auto) 0.300 Neut % (Auto) 49.6 Lymph % (Auto) 32.0 [place] % (Auto) 13.2 H Eos % (Auto) 3.6 Baso % (Auto) 1.3 H Absolute Neuts (auto) 1.9 L Absolute Lymphs (auto) 1.24 Nucleated RBC % 0 Sodium 137 Potassium 3.5 Chloride 103 Carbon Dioxide 26.0 Anion Gap 8 BUN 12 Creatinine 0.82 Estim Creat Clear Calc 136.45 Est GFR (MDRD) Af Amer 153 Est GFR (MDRD) Non-Af 126 BUN/Creatinine Ratio 14.6 Glucose 240 H Lactic Acid Calcium 9.3 Total Bilirubin 2.00 H Direct Bilirubin 0.37 H AST 8 L ALT 17 Alkaline Phosphatase 141 H Total Protein 7.2 Albumin 3.8 Globulin 3.4 Lipase 37 L Urine Color Urine Clarity Urine pH Ur Specific [place] Urine Protein Urine Glucose (UA) Urine Ketones Urine Occult Blood Urine Nitrite Urine Bilirubin Urine Urobilinogen Ur Leukocyte Esterase Urine RBC Urine WBC Ur Squamous Epith Cells Urine Bacteria Urine Mucus Acetone Level NEGATIVE POC Glucose 09/15/21 09/15/21 09/15/21 18:20 18:50 20:04 WBC RBC Hgb Hct MCV MCH MCHC RDW Std Deviation RDW Coeff of Rabia Plt Count MPV Immature Gran % (Auto) Neut % (Auto) Lymph % (Auto) [place] % (Auto) Eos % (Auto) Baso % (Auto) Absolute Neuts (auto) Absolute Lymphs (auto) Nucleated RBC % Sodium Potassium Chloride Carbon Dioxide Anion Gap BUN Creatinine Estim Creat Clear Calc Est GFR (MDRD) Af Amer Est GFR (MDRD) Non-Af BUN/Creatinine Ratio Glucose Lactic Acid 2.8 H* Calcium Total Bilirubin Direct Bilirubin AST ALT Alkaline Phosphatase Total Protein Albumin Globulin Lipase Urine Color Yellow Urine Clarity Clear Urine pH 6.0 Ur Specific [place] 1.015 Urine Protein Negative Urine Glucose (UA) 1000 H Urine Ketones Negative Urine Occult Blood Negative Urine Nitrite Negative Urine Bilirubin Negative Urine Urobilinogen Normal Ur Leukocyte Esterase Negative Urine RBC 0 SEEN Urine WBC 0 SEEN Ur Squamous Epith Cells 0 SEEN Urine Bacteria 0 SEEN Urine Mucus 0 SEEN Acetone Level POC Glucose 57 L ABG Data ABG results: ABG 09/15/21 18:49 Specimen Type MARILYNN VBG pH 7.32 VBG pO2 20 L VBG HCO3 29 H VBG Total CO2 31 VBG O2 Sat (Calc) 27 L VBG Base Excess 3 POC Mix VBG pCO2 Pt Tmp 56.8 H Radiography Diagnostic Testing: Clinical Impression(s) from Imaging Studies Chest X-Ray 09/15/21 18:32 IMPRESSION: No acute radiographic abnormalities. Electronically Signed: Jose Alberto Elkins MD at 19:01 EDT Tel , Service support , Discharge Plan Triage Chief Complaint: Nausea/Vomiting ED Provider: Javier Lin Dx/Rx/DC Orders Clinical Impression: History of type 1 diabetes mellitus, Nausea & vomiting, Dehydration Instructions: Dehydration, ED Vomiting (Adult) Prescriptions: New ondansetron 4 mg tablet,disintegrating 4 mg PO Q8H PRN (Reason: nausea and vomiting) Qty: 21 RF: 0 No Action insulin lispro [Humalog KwikPen Insulin] 100 unit/mL insulin pen 30 unit subcut TID Qty: 15 RF: 6 (DME) OneTouch Verio test strips Strip See Rx Instructions .ROUTE .MEDSUPPLY Qty: 200 RF: 6 (DME) pen needle, diabetic [BD Ultra-Fine [place] Pen Needle] 32 gauge x 5/32 needle See Rx Instructions .ROUTE .MEDSUPPLY Qty: 360 RF: 6 albuterol sulfate 1 INHALER inhaler 2 puff INHALATION Q4H PRN PRN (Reason: Wheezing) RF: 0 acetaminophen 650 MG/20 ML solution 650 mg PO Q6H PRN PRN (Reason: Pain Score 1-3 /Temp>100.7) RF: 0 potassium chloride 20 MEQ tablet 20 meq PO BID RF: 0 amoxicillin-pot clavulanate 875 MG tablet 875 mg PO Q12H Qty: 20 RF: 0 Lantus Solostar U-100 Insulin 100 unit/mL (3 mL) Insulin Pen 25 unit subcut QHS Qty: 15 RF: 0 omeprazole 20 mg Capsule,Delayed Release(Dr/Ec) 20 mg PO DAILY RF: 0 cephalexin [cephalexin] 500 MG capsule 500 mg PO Q6 Qty: 40 RF: 0 Lantus Solostar U-100 Insulin 100 unit/mL (3 mL) insulin pen 25 unit SC DAILY Qty: 15 RF: 4 Primary Care Provider: Tori Butler Referrals: Tori Butler MD [Primary Care Provider] - Disposition Disposition: Home, Self Care
[2021-09-15 20:51] VITALS: BP 115/68; PULSE 114; RESP 16; O2SAT 100
[2021-09-15 20:51] LABS: Bedside Glucose 86 mg/dL (70-110)
[2021-09-15 22:25] LABS: Reflex Lactate? Y
== END 2021-09-15 20:56 | disposition home or self-care (01) ==
PROVIDERS: Emergency Provider Emergency Medicine; PCP Pediatrics
DX: E10.9 Type 1 diabetes mellitus without complications (principal); R11.2 Nausea with vomiting, unspecified; E86.0 Dehydration; Z79.4 Long term (current) use of insulin
CPT/HCPCS: 71045; 80048; 80076; 81001; 82009; 82803; 82962; 83605; 83690; 85025; 87426; 96374; 99283; J7030; A4216; J2405

== ENCOUNTER 2021-09-28 23:23 | Inpatient (IN) | payer MEDICAID, SELFPAY ==
[2021-09-28 23:24] VITALS: BP 122/77; PULSE 146; RESP 18; TEMP 36.9; O2SAT 100; BMI 19.5
[2021-09-29] VITALS (26 sets, daily range): BP systolic 96–161; BP diastolic 42–94; PULSE 120–140; RESP 16–34; TEMP 36.3–37.4; O2SAT 97–100; BMI 21.2
--- NOTE | 2021-09-29 00:41 | RAD_ITS ---
STUDY: X-RAY CHEST REASON FOR EXAM: Male, 20 years old. dyspnea TECHNIQUE: Single AP portable view of the chest. COMPARISON: None. FINDINGS: The lungs are clear and expanded. There is no demonstrated pleural abnormality. Normal size heart. Normal mediastinum and rudi. Normal visualized pulmonary arteries. Normal visualized aortic arch and descending thoracic aorta. Normal visualized thoracic spine. Normal visualized ribs, clavicles, and shoulders. There is no demonstrated abnormality of the visualized soft tissue structures of the upper abdomen. RAD/Chest 1 View (Portable) IMPRESSION: No acute cardiopulmonary disease. Electronically Signed: Berna Bardales MD at 1:43 EST , Service support ,
--- NOTE | 2021-09-29 00:42 | EKG12_ITS ---
Test Reason : SOB Blood Pressure : / mmHG Vent. Rate : 139 BPM Atrial Rate : 139 BPM P-R Int : 118 ms QRS Dur : 082 ms QT Int : 284 ms P-R-T Axes : 073 087 070 degrees QTc Int : 432 ms Sinus tachycardia Otherwise normal ECG Confirmed by SHERMAN CASTILLO, KEVIN ([id number]), fan mail editor AYESHA VALLE ([id number]) on 09/30/2021 9:26:54 A M Referred By: HARINDER Confirmed By:SUSY WHITAKER MD
[2021-09-29] MEDS: 0.9% Normal Saline 1,000 ML 999 ML IV ×2 (01:09→03:08)
--- NOTE | 2021-09-29 01:12 | ED.VIS.DYS ---
HPI History of Present Illness Chief Complaint: Shortness of Breath Narrative Narrative: 20-year-old male presenting with shortness of breath. He states he is not having chest pain. He denies a fever. Patient states that this has been an ongoing issue for a couple of days. Patient has a history of type 1 diabetes. He states his blood sugars have been in the 120s at home. He has decreased p.o. intake due to some abdominal cramping that he has. He states he has excessive thirst. Patient does state that he is been using his albuterol inhaler more excessively. He does have history of asthma. [facility] Medical History Asthma Asthma Diabetes Diabetes mellitus type 1 Diabetes mellitus with ketoacidosis femur surgery Nonhealing surgical wound Ulcer of leg, chronic Unspecified open wound, left thigh, subsequent encounter Home Medications albuterol sulfate 2 puff INHALATION Q4H PRN PRN 02/15/19 [History Last Taken 12/09/20] acetaminophen 650 mg PO Q6H PRN PRN udc 12/28/20 [Rx Last Taken 01/24/21] potassium chloride 20 meq PO BID 01/24/21 [History Last Taken 01/24/21] insulin glargine 100 unit/mL (3 mL) subcutaneous pen 25 unit SC DAILY #15 ml 01/28/21 [Rx Last Taken Unknown] amoxicillin-pot clavulanate 875 mg PO Q12H #20 tab 02/18/21 [Rx Last Taken Unknown] Lantus Solostar U-100 Insulin 25 unit SUBCUT QHS #15 ml 03/20/21 [Rx Last Taken Unknown] cephalexin 500 mg PO Q6 #40 capsule 05/31/21 [Rx Last Taken Unknown] omeprazole 20 mg PO DAILY 05/31/21 [History Last Taken Unknown] insulin lispro 100 unit/mL subcutaneous pen 30 unit SUBCUT TID #15 ml 06/16/21 [Rx Last Taken Unknown] blood sugar diagnostic #200 ea 09/08/21 [Rx Last Taken Unknown] pen needle, diabetic 32 gauge x #360 ea 09/08/21 [Rx Last Taken Unknown] ondansetron 4 mg PO Q8H PRN #21 tab 09/15/21 [Rx Last Taken Unknown] Allergy/AdvReac Type Severity Reaction Status Date / Time Milk Containing Products AdvReac Diarrhea Verified 09/28/21 23:24 Family History (Updated 09/29/21 @ 03:[address] Ashley Kapoor MD) Father Polysubstance overdose Patient father young secondary to OD. Mother Iron deficiency anemia Other Asthma CVA (cerebral vascular accident) Diabetes Hypertension Thyroid disorder Surgical History (Updated 09/29/21 @ 03:[address] Ashley Kapoor MD) Hx of knee surgery Social History (Updated 09/29/21 @ 03:[address] Ashley Kapoor MD) housing: other details: Lives with his grandmother, aunt and mother. Smoking Status: Never smoker alcohol intake: never substance use type: does not use ROS ROS ED Constitutional Constitutional ED: Denies fever(s) Eyes Eyes: Denies blurry vision ENT ENT ED: Denies rhinorrhea or sore throat Cardiovascular Cardiovascular: Reports racing heartbeat; Denies chest pain Respiratory/Chest Respiratory/Chest: Reports dyspnea; Denies cough Gastrointestinal Gastrointestinal: Reports abdominal pain and nausea; Denies constipation, diarrhea or vomiting Genitourinary Genitourinary ED: Denies dysuria or hematuria Musculoskeletal Musculoskeletal: Denies arthralgias, myalgias or neck pain Integumentary Denies rash Neurologic Neurologic: Denies headache(s) or paresthesias Psychiatric Psychiatric: Denies anxiety or depression EXAM Physical Exam Const Vital Signs: 09/28/21 23:24 09/29/21 01:18 09/29/21 01:20 Temperature 98.4 F 99.4 F H Temperature Source Temporal Oral Pulse Rate 146 H 132 H Respiratory Rate 18 20 H Respiratory Effort Normal Non-Labored Respiratory Depth Normal Respiratory Pattern Tachypnea Blood Pressure 122/77 H 127/76 H Blood Pressure Mean 92 93 Pulse Ox 100 100 Oxygen Delivery Method Room Air Room Air Room Air Constitutional Narrative: Tachycardic. In no acute distress. General Appearance ED: Negative for pallor HEENT Reports dry mucous membranes atraumatic Mouth ED: Yes dry mucous membranes Mouth: dry mucous membranes Eyes PERRL and EOMs intact bilaterally Neck no lymphadenopathy, supple and no meningeal signs Resp clear to auscultation bilaterally Resp Narrative: Tachypneic Auscultation: Negative for rales, rhonchi or wheezes Cardio regular rhythm Rate: tachycardic GI non-distended Auscultation: normoactive bowel sounds Palpation: soft Neuro oriented x3 and CN's II-XII intact bilaterally Sensorium / Orientation: alert Psych mental status grossly normal Thought Process: normal thought process Skin General Skin Exam: Negative for jaundice or pallor MDM MDM MDM Narrative Medical decision making narrative: Patient presenting with shortness of breath his chief complaint. He does also state that he has abdominal cramping. His abdomen is benign. I did obtain blood work as the patient is a known noncompliant type I diabetic. He states blood sugars have been in the 120s at home. His blood sugar is 529 and he has an anion gap of 23 and pseudohyponatremia. His creatinine is elevated at 1.36. CO2 is 6. UA is negative for infection he was given 2 L of IV fluids. CBC shows a slight leukocytosis of 11.6. Hemoglobin is 17.7 and likely hemoconcentrated. Platelets are normal. Urinalysis is negative for infection however there is urine ketones. acetone level is moderate.. EKG on my interpretation shows a sinus tachycardia with a ventricular rate of 139 bpm without sign of ischemic change. Troponin is 6. Chest x-ray on my interpretation shows no acute cardiopulmonary process and the radiologist does agree. Patient will be started on insulin drip for DKA. Impression: 1. Dyspnea 2. DKA 3. Dehydration Lab Data Attestation: I reviewed the patient's lab results. Labs: Laboratory Results - last 24 hr 09/29/21 09/29/21 09/29/21 01:06 01:06 01:06 WBC 11.6 H RBC 6.23 H Hgb 17.7 H Hct 51.7 MCV 83.0 MCH 28.4 MCHC 34.2 RDW Std Deviation 38.2 RDW Coeff of Rabia 12.8 Plt Count 510 H MPV 9.8 Immature Gran % (Auto) 1.600 H Neut % (Auto) 81.6 H Lymph % (Auto) 9.8 L [place] % (Auto) 6.4 Eos % (Auto) 0.2 Baso % (Auto) 0.4 Absolute Neuts (auto) 9.4 H Absolute Lymphs (auto) 1.13 Nucleated RBC % 0 Sodium 126 L Potassium 5.0 Chloride 97 L Carbon Dioxide 6.0 L* Anion Gap 23 H BUN 23 H Creatinine 1.36 H Estim Creat Clear Calc 82.27 Est GFR (MDRD) Af Amer 85 Est GFR (MDRD) Non-Af 71 BUN/Creatinine Ratio 16.9 Glucose 529 H* Calcium 9.8 Magnesium 2.2 Troponin I High Sens 6 Urine Color Urine Clarity Urine pH Ur Specific [place] Urine Protein Urine Glucose (UA) Urine Ketones Urine Occult Blood Urine Nitrite Urine Bilirubin Urine Urobilinogen Ur Leukocyte Esterase Urine RBC Urine WBC Ur Squamous Epith Cells Urine Bacteria Urine Mucus Acetone Level MODERATE H POC Glucose 09/29/21 09/29/21 09/29/21 01:06 01:15 02:51 WBC RBC Hgb Hct MCV MCH MCHC RDW Std Deviation RDW Coeff of Rabia Plt Count MPV Immature Gran % (Auto) Neut % (Auto) Lymph % (Auto) [place] % (Auto) Eos % (Auto) Baso % (Auto) Absolute Neuts (auto) Absolute Lymphs (auto) Nucleated RBC % Sodium Potassium Chloride Carbon Dioxide Anion Gap BUN Creatinine Estim Creat Clear Calc Est GFR (MDRD) Af Amer Est GFR (MDRD) Non-Af BUN/Creatinine Ratio Glucose Calcium Magnesium Troponin I High Sens Urine Color Yellow Urine Clarity Clear Urine pH 5.0 Ur Specific [place] 1.025 Urine Protein 100 H Urine Glucose (UA) 1000 H Urine Ketones 150 A* Urine Occult Blood 10 H Urine Nitrite Negative Urine Bilirubin Negative Urine Urobilinogen Normal Ur Leukocyte Esterase Negative Urine RBC 0 SEEN Urine WBC 0 SEEN Ur Squamous Epith Cells 0 SEEN Urine Bacteria 0 SEEN Urine Mucus 0 SEEN Acetone Level POC Glucose 499 H* 459 H* Radiography Diagnostic Testing: Clinical Impression(s) from Imaging Studies Chest X-Ray 09/29/21 00:41 IMPRESSION: No acute cardiopulmonary disease. Electronically Signed: Berna Bardales MD at 1:43 EST , Service support , Discharge Plan Triage Chief Complaint: Shortness of Breath ED Provider: Burton Pradhan Dx/Rx/DC Orders Primary Care Provider: Tori Butler
[2021-09-29 01:21] LABS: Bedside Glucose 499 mg/dL (70-110)
[2021-09-29 01:33] LABS: Bacteria 0 SEEN /hpf (None Seen); Mucous, Urine 0 SEEN /hpf (<or=2+); Red Blood Cells-Urine 0 SEEN /hpf (0-5); Squamous Epithelial Cells - UA 0 SEEN /hpf (0-5); White Blood Cells 0 SEEN /hpf (0-5)
[2021-09-29 01:35] LABS: Absolute Lymphocyte Count 1.13 X10^3/uL (0.83-4.51); Absolute Neutrophil Count 9.4 X10^3/uL (2.0-7.7); Basophil# 0.05 X10^3/uL; Basophil% 0.4 % (0-1); Eosinophil# 0.02 X10^3/uL; Eosinophils% 0.2 % (0-5); Hematocrit 51.7 % (40-54); Hemoglobin 17.7 g/dL (13.0-16.5); Lymphocyte # 1.13 X10^3/ul (0.83-4.51); Lymphocyte % 9.8 % (19-41); Mean Corp Hgb Conc 34.2 g/dL (32-36); Mean Corpuscular Hgb 28.4 pg (27.0-32.0); Mean Platelet Vol. 9.8 fl (6.2-12.0); Monocyte# 0.74 X10^3/uL; Monocyte% 6.4 % (0-10); NRBC Flagged by Analyzer 0 % (0-5); Neutrophil # 9.44 X10^3/uL (2.7-7.7); Neutrophil % 81.6 % (47-70); Platelet Count 510 K/mm3 (150-450); RBC Distribution Width CV 12.8 % (11.6-14.6); RBC Distribution Width SD 38.2 fl (35.1-43.9); Red Blood Count 6.23 M/mm3 (4.6-6.2); White Blood Count 11.6 K/mm3 (4.4-11.0)
[2021-09-29 01:39] LABS: Color, Urine Yellow (Yellow); Glucose, Dipstick 1000 mg/dl (Normal); Leukocyte Esterase-Dipstick Negative /ul (Negative); Nitrite-Dipstick Negative (Negative); Occult Blood-Urine 10 /ul (Negative); Protein-Dipstick 100 mg/dl (Negative); Specific Gravity, Urine 1.025 (1.002-1.030); Urine Bilirubin Dipstick Negative (Negative); Urine Clarity Clear (Clear); Urine Urobilinogen Normal (Normal)
[2021-09-29 01:58] LABS: Ketone-Dipstick 150 mg/dl (Negative)
[2021-09-29 02:07] LABS: Anion Gap 23 (5-15); BUN 23 mg/dL (7-18); BUN/Creat Ratio 16.9 RATIO (10-20); Calcium,Total 9.8 mg/dL (8.5-10.1); Chloride 97 mmol/L (98-107); Creatinine, Serum 1.36 mg/dL (0.70-1.30); EST Glomerular Filtration Rate 71 mL/min (>60); Est Glom Filt Rate - Afr Amer 85 mL/min (>60); Estimated Creatinine Clearance 82.27 ml/min; Glucose 529 mg/dL (74-106); Magnesium 2.2 mg/dL (1.6-2.6); Sodium Level 126 mmol/L (136-145); Troponin-I HS 6 pg/mL (3.0-78.0)
--- NOTE | 2021-09-29 02:39 | HP.PCM.HOS_ITS ---
HPI - General General Date of Admission: 09/29/21 Date of Service: 09/29/21 Chief Complaint: Dyspnea, abdominal discomfort, elevated BS. HPI Narrative The patient is a 20 y/o M w/ PMHx: Diabetes mellitus type I with history of non-compliance, Hx of diabetic ulcers, GERD, Asthma who presents to the [facility] ED on 09/29/21 with history of abdominal discomfort primarily in the lower quadrants with nausea and emesis but no associated diarrhea or constipation as well as subjective dyspnea ongoing for 2 days with no recent fever, chills, body aches, cough with previously reported appropriate blood sugars and noting compliance with his medications but now onset hyperglycemia prompting family to bring him in. He has not been vaccinated against COVID-19 of note. He is currently rating his lower abdominal discomfort 6 out of 10 in severity, cramping in nature. Work-up in the ED included T 99.4, heart rate 132, BP 127/76, respiratory rate 20, 100% on room air, CBC with WBC 11.6, hemoglobin 17.7, platelet 510 with left shift, BMP with sodium 126, chloride 97, carbon dioxide six, anion gap 23, BUN/creatinine 23/1.36, glucose 529, magnesium 2.2, troponin , urinalysis with specific gravity elevation 1.025, protein 100, glucose 1000, ketones 150, occult blood 10, no evidence of any UTI, acetone moderate, chest x-ray with no acute cardiopulmonary findings, rapid Covid antigen negative. In the ED patient ministered 2 L normal saline bolus and started on insulin drip. [facility] Medical History Asthma Asthma Diabetes Diabetes mellitus type 1 Diabetes mellitus with ketoacidosis femur surgery Nonhealing surgical wound Ulcer of leg, chronic Unspecified open wound, left thigh, subsequent encounter Home Medications albuterol sulfate 2 puff INHALATION Q4H PRN PRN 02/15/19 [History Last Taken 12/09/20] acetaminophen 650 mg PO Q6H PRN PRN udc 12/28/20 [Rx Last Taken 01/24/21] potassium chloride 20 meq PO BID 01/24/21 [History Last Taken 01/24/21] insulin glargine 100 unit/mL (3 mL) subcutaneous pen 25 unit SC DAILY #15 ml 01/28/21 [Rx Last Taken Unknown] amoxicillin-pot clavulanate 875 mg PO Q12H #20 tab 02/18/21 [Rx Last Taken Unknown] Lantus Solostar U-100 Insulin 25 unit SUBCUT QHS #15 ml 03/20/21 [Rx Last Taken Unknown] cephalexin 500 mg PO Q6 #40 capsule 05/31/21 [Rx Last Taken Unknown] omeprazole 20 mg PO DAILY 05/31/21 [History Last Taken Unknown] insulin lispro 100 unit/mL subcutaneous pen 30 unit SUBCUT TID #15 ml 06/16/21 [Rx Last Taken Unknown] blood sugar diagnostic #200 ea 09/08/21 [Rx Last Taken Unknown] pen needle, diabetic 32 gauge x #360 ea 09/08/21 [Rx Last Taken Unknown] ondansetron 4 mg PO Q8H PRN #21 tab 09/15/21 [Rx Last Taken Unknown] Allergy/AdvReac Type Severity Reaction Status Date / Time Milk Containing Products AdvReac Diarrhea Verified 09/28/21 23:24 Family History (Updated 09/29/21 @ 03:[address] Ashley Kapoor MD) Father Polysubstance overdose Patient father young secondary to OD. Mother Iron deficiency anemia Other Asthma CVA (cerebral vascular accident) Diabetes Hypertension Thyroid disorder Surgical History (Updated 09/29/21 @ 03:[address] Ashley Kapoor MD) Hx of knee surgery unable to obtain (Additional Surgery: L leg surgery with diabetic wound intervention.) Social History (Updated 09/29/21 @ 03:[address] Ashley Kapoor MD) housing: other details: Lives with his grandmother, aunt and mother. Smoking Status: Never smoker alcohol intake: never substance use type: does not use ROS ROS Narrative Admission Review of Systems: CONSTITUTIONAL: No weight loss, fever, chills, + weakness or fatigue. HEENT: Eyes: No visual loss, blurred vision, double vision or yellow sclerae. Ears, Nose, Throat: No hearing loss, sneezing, congestion, runny nose or sore throat. SKIN: No rash or itching, lesions, wounds. CARDIOVASCULAR: No chest pain, chest pressure or chest discomfort, palpitations, edema, orthopnea, syncopal events. RESPIRATORY: + shortness of breath, No cough or sputum, wheezing, hemoptysis. GASTROINTESTINAL: + anorexia, nausea, vomiting, abdominal pain, No diarrhea, melena, BRBPR. GENITOURINARY: No dysuria, frequency, urgency or retention. NEUROLOGICAL: No headache, dizziness, syncope, paralysis, ataxia, numbness or tingling in the extremities, focal weakness, change in bowel or bladder control, seizure. MUSCULOSKELETAL: No muscle, back pain, joint pain or stiffness. HEMATOLOGIC: No anemia, bleeding or bruising. LYMPHATICS: No enlarged nodes. No history of splenectomy. PSYCHIATRIC: No history of depression or anxiety. ENDOCRINOLOGIC: No reports of sweating, cold or heat intolerance. + polyuria or polydipsia. ALLERGIES: + history of asthma, hives, eczema or rhinitis. Vital Signs Vital Signs Vital Signs: 09/28/21 23:24 09/29/21 01:18 09/29/21 01:20 Temperature 98.4 F 99.4 F H Temperature Source Temporal Oral Pulse Rate 146 H 132 H Respiratory Rate 18 20 H Respiratory Effort Normal Non-Labored Respiratory Depth Normal Respiratory Pattern Tachypnea Blood Pressure 122/77 H 127/76 H Blood Pressure Mean 92 93 Pulse Ox 100 100 Oxygen Delivery Method Room Air Room Air Room Air Weight Weight: 148 lb Body Mass Index (BMI) 19.5 Physical Exam Narrative Physical Examination: General: Awake, alert, oriented x 3 and cooperative, laying in the ED bed, ill and fatigued appearing. Skin: Normal color, normal turgor, no icterus, no cyanosis. HEENT: AT/NC, EOMI, PERRLA, dry MM, no carotid bruits or JVD noted. Lungs: Diminished, greater bases, no evidence of any distress, no rales, ronchi or wheezing. Heart: Tachycardic with regular rhythm; no gallop, rub audible. Abdomen: Soft, mild discomfort to bilateral lower quadrant palpation however no rebound or guarding, ND, distant mildly hyperactive BS, no HSM. Extremities: No cyanosis, clubbing, or edema. Neurological: Patient awake, alert, oriented as noted, cognitive function intact; pupils equally reactive to light and accommodation, cranial nerves II- XII grossly normal, moving all 4 extremities, no focal deficits, strength moderately global decrease secondary to acute presentation. Psychiatric: Affect appears fatigued, ill-appearing, no acute evidence of depressive or anxiety feelings. Results Lab / Micro Data Result Diagrams: 09/29/21 01:06 09/29/21 01:06 Labs: Laboratory Results - last 24 hr 09/29/21 01:06: Sodium 126 L, Potassium 5.0, Chloride 97 L, Carbon Dioxide 6.0 L*, Anion Gap 23 H, BUN 23 H, Creatinine 1.36 H, Estim Creat Clear Calc 82.27, Est GFR (MDRD) Af Amer 85, Est GFR (MDRD) Non-Af 71, BUN/Creatinine Ratio 16.9, Glucose 529 H*, Calcium 9.8, Magnesium 2.2, Troponin I High Sens 6 09/29/21 01:06: Acetone Level MODERATE H 09/29/21 01:06: WBC 11.6 H, RBC 6.23 H, Hgb 17.7 H, Hct 51.7, MCV 83.0, MCH 28.4, MCHC 34.2, RDW Std Deviation 38.2, RDW Coeff of Rabia 12.8, Plt Count 510 H, MPV 9.8, Immature Gran % (Auto) 1.600 H, Neut % (Auto) 81.6 H, Lymph % (Auto) 9.8 L, [place] % (Auto) 6.4, Eos % (Auto) 0.2, Baso % (Auto) 0.4, Absolute Neuts (auto) 9.4 H, Absolute Lymphs (auto) 1.13, Nucleated RBC % 0 09/29/21 01:06: Urine Color Yellow, Urine Clarity Clear, Urine pH 5.0, Ur Specific [place] 1.025, Urine Protein 100 H, Urine Glucose (UA) 1000 H, Urine Ketones 150 A*, Urine Occult Blood 10 H, Urine Nitrite Negative, Urine Bilirubin Negative, Urine Urobilinogen Normal, Ur Leukocyte Esterase Negative, Urine RBC 0 SEEN, Urine WBC 0 SEEN, Ur Squamous Epith Cells 0 SEEN, Urine Bacteria 0 SEEN, Urine Mucus 0 SEEN 09/29/21 01:15: POC Glucose 499 H* Micro: Microbiology 09/29/21 01:28 Nasal Secretion SARS-CoV-2 Antigen (Rapid) - Final Radiology Impression Chest X-Ray 09/29/21 00:41 IMPRESSION: No acute cardiopulmonary disease. Electronically Signed: Berna Bardales MD at 1:43 EST , Service support , Assessment & Plan Assessment/Plan (1) DKA (diabetic ketoacidoses): QUALIFIERS: Diabetes mellitus type: type 1 Diabetes mellitus complication detail: with coma Qualified Code(s): E10.11 - Type 1 diabetes mellitus with ketoacidosis with coma PLAN: The patient is a 20 y/o M w/ PMHx: Diabetes mellitus type I with history of non-compliance, Hx of diabetic ulcers, GERD, Asthma who presents to the [facility] ED on 09/29/21 with history of abdominal discomfort primarily in the lower quadrants with nausea and emesis but no associated diarrhea or constipation as well as subjective dyspnea ongoing for 2 days with no recent fever, chills, body aches, cough with previously reported appropriate blood sugars and noting compliance with his medications but now onset hyperglycemia prompting family to bring him in. #1. DKA w/ Diabetes mellitus type I: Will admit to the ICU, continue on insulin drip, check serial K+, glucose w/ IVF changes pending these levels, serial chemistry, obtain mag, phos daily w/ repletion as needed, transition to home SC regimen when gap closed w/ overlap on drip, nutrition consultation. Encouraged diet and insulin regimen compliance. Hemoglobin A1c requested. Per protocol will request video clerk consultation. #2. Acute renal insufficiency: Secondary to acute presentation as noted #1. Admission BUN/Cr 23/1.36, prior baseline creatinine noted to be 0.8. Will hydrate, hold nephrotoxic medications and continue to trend BMP as noted above. #3. Abdominal pain, unclear etiology, possibly #1: Patient with complaint of abdominal pain x2 days, bilateral lower quadrants although no rebound or guarding on evaluation however CBC does have left shift. Certainly could be from acute presentation with #1 but will have low threshold to image abdomen if any concerning changes and evaluation. Procalcitonin pending. Rapid Covid antigen negative. #4. Chronic asthma: Encourage HOB, PRN albuterol. #5. GERD: IV PPI while NPO. #6. DVT prophylaxis: SCDs, heparin. Charges/Coding Visit Charges Inpatient E&M: 39333 Init Hosp L3
[2021-09-29 02:56] LABS: Bedside Glucose 459 mg/dL (70-110)
[2021-09-29 03:15] LABS: Phosphorus 4.3 mg/dL (2.5-4.9)
[2021-09-29 04:12] LABS: Anion Gap 24 (5-15); BUN 22 mg/dL (7-18); BUN/Creat Ratio 18.6 RATIO (10-20); Calcium,Total 8.9 mg/dL (8.5-10.1); Chloride 98 mmol/L (98-107); Creatinine, Serum 1.18 mg/dL (0.70-1.30); EST Glomerular Filtration Rate 83 mL/min (>60); Est Glom Filt Rate - Afr Amer 100 mL/min (>60); Estimated Creatinine Clearance 94.82 ml/min; Glucose 498 mg/dL (74-106); Potassium 4.5 mmol/L (3.5-5.1); Sodium Level 126 mmol/L (136-145)
[2021-09-29] MEDS: 0.9% Normal Saline 1,000 ML 150 ML IV (05:33)
[2021-09-29 05:47] LABS: Absolute Neutrophil Count 10.9 X10^3/uL (2.0-7.7); Basophil# 0.07 X10^3/uL; Basophil% 0.5 % (0-1); Hematocrit 51.1 % (40-54); Hemoglobin 17.6 g/dL (13.0-16.5); Lymphocyte % 8.3 % (19-41); Mean Corp Hgb Conc 34.4 g/dL (32-36); Mean Corpuscular Hgb 28.7 pg (27.0-32.0); Mean Corpuscular Volume 83.2 fL (80-94); Mean Platelet Vol. 9.6 fl (6.2-12.0); Monocyte# 1.02 X10^3/uL; Monocyte% 7.7 % (0-10); NRBC Flagged by Analyzer 0 % (0-5); Neutrophil # 10.94 X10^3/uL (2.7-7.7); Neutrophil % 82.1 % (47-70); Platelet Count 437 K/mm3 (150-450); RBC Distribution Width CV 12.8 % (11.6-14.6); RBC Distribution Width SD 38.2 fl (35.1-43.9); Red Blood Count 6.14 M/mm3 (4.6-6.2); White Blood Count 13.3 K/mm3 (4.4-11.0)
[2021-09-29 06:15] LABS: Anion Gap 21 (5-15); BUN 23 mg/dL (7-18); BUN/Creat Ratio 19.2 RATIO (10-20); Calcium,Total 8.7 mg/dL (8.5-10.1); Chloride 102 mmol/L (98-107); EST Glomerular Filtration Rate 81 mL/min (>60); Est Glom Filt Rate - Afr Amer 99 mL/min (>60); Estimated Creatinine Clearance 101.11 ml/min; Glucose 358 mg/dL (74-106); Potassium 4.1 mmol/L (3.5-5.1); Sodium Level 129 mmol/L (136-145)
[2021-09-29 06:30] LABS: Bedside Glucose 298 mg/dL (70-110)
[2021-09-29 06:30] LABS: Bedside Glucose 362 mg/dL (70-110)
[2021-09-29 07:11] LABS: Bedside Glucose 300 mg/dL (70-110)
[2021-09-29 08:16] LABS: Bedside Glucose 237 mg/dL (70-110)
[2021-09-29] MEDS: Dext 5%-0.45% NS 1,000 ML 150 ML IV ×2 (08:19→16:10)
[2021-09-29 08:46] LABS: Anion Gap 24 (5-15); BUN 20 mg/dL (7-18); BUN/Creat Ratio 21.7 RATIO (10-20); Chloride 106 mmol/L (98-107); Creatinine, Serum 0.92 mg/dL (0.70-1.30); EST Glomerular Filtration Rate 110 mL/min (>60); Est Glom Filt Rate - Afr Amer 134 mL/min (>60); Estimated Creatinine Clearance 131.88 ml/min; Glucose 262 mg/dL (74-106); Potassium 4.1 mmol/L (3.5-5.1); Sodium Level 135 mmol/L (136-145)
[2021-09-29 09:06] LABS: Hemoglobin A1c 10.1 % (3.8-5.6)
[2021-09-29 09:17] LABS: Bedside Glucose 290 mg/dL (70-110)
[2021-09-29 11:05] LABS: Bedside Glucose 374 mg/dL (70-110)
[2021-09-29] MEDS: 0.9% Normal Saline 1,000 ML 225 ML IV (11:26)
[2021-09-29] MEDS: Heparin Injection (Vial) 5,000 UNIT/ML VIAL 5000 UNIT SC ×2 (11:28→22:03)
[2021-09-29 12:20] LABS: Bedside Glucose 329 mg/dL (70-110)
[2021-09-29 12:49] LABS: Anion Gap 18 (5-15); BUN 18 mg/dL (7-18); BUN/Creat Ratio 19.2 RATIO (10-20); Calcium,Total 8.1 mg/dL (8.5-10.1); Chloride 107 mmol/L (98-107); Creatinine, Serum 0.94 mg/dL (0.70-1.30); EST Glomerular Filtration Rate 108 mL/min (>60); Est Glom Filt Rate - Afr Amer 131 mL/min (>60); Estimated Creatinine Clearance 129.08 ml/min; Glucose 292 mg/dL (74-106); Potassium 3.7 mmol/L (3.5-5.1); Sodium Level 132 mmol/L (136-145)
--- NOTE | 2021-09-29 13:03 | EX.PCM.CONCC ---
Assessment & Plan Assessment/Plan (1) DKA (diabetic ketoacidoses): QUALIFIERS: Diabetes mellitus type: type 1 Diabetes mellitus complication detail: with coma Qualified Code(s): E10.11 - Type 1 diabetes mellitus with ketoacidosis with coma PLAN: RECOMMENDATIONS: 1. Continue routine management per DKA protocol. 2. Additional supplemental IV fluid hydration. 3. Continue insulin infusion until anion gap has been closed x2. 4. Aggressive electrolyte repletion. 5. Dietary/nutrition counseling. IMPRESSIONS: 1. Diabetic ketoacidosis Secondary to known history of medical noncompliance. Continue routine management of DKA with supplemental IV fluid hydration, aggressive electrolyte repletion and continuous insulin infusion, until anion gap has been closed x2. The patient is to remain n.p.o. until that time. Once gap is closed, the patient can be transition to basal and sliding scale insulin coverage. 2. Acute kidney injury Likely prerenal in etiology in the setting of osmotic diuresis. Continue aggressive volume expansion. Continue to monitor urine output. No current indication for renal replacement therapy. This note was generated with [employer] dictation software. It may contain incorrect words, spelling, and punctuation that were not noted in checking the note before signing. HPI Consult Data Date of Consult: 09/29/21 HPI Narrative Reason for Consultation: Diabetic ketoacidosis HPI Narrative: The patient is a 20-year-old male, with a history as outlined below, who presented to the emergency department on September 29 with abdominal pain, nausea and vomiting. The patient has a known history of diabetes mellitus with medical noncompliance. The patient was just seen in the endocrinology office on September 22, at which time, the patient was again noted to be noncompliant with his diabetic regimen. On presentation to the emergency department, the patient was noted to be afebrile and was hemodynamically stable. Nevertheless, he was notably tachycardic and tachypneic. Chemistry profile was notable for a sodium of 126, chloride of 97, bicarbonate of 6.0, anion gap of 23 and creatinine of 1.36. Glucose was elevated to 529. Hemoglobin A1c on September 22 was noted to be 10.2. Moderate serum acetone level was noted. Chest x-ray was unremarkable. The patient received supplemental IV fluid hydration and was started on a continuous insulin infusion. He was subsequently transferred to the medical intensive care unit for further management. PFSH Medical History Asthma Asthma Diabetes Diabetes mellitus type 1 Diabetes mellitus with ketoacidosis femur surgery Nonhealing surgical wound Ulcer of leg, chronic Unspecified open wound, left thigh, subsequent encounter Home Medications albuterol sulfate 2 puff INHALATION Q4H PRN PRN 02/15/19 [History Last Taken 12/09/20] acetaminophen 650 mg PO Q6H PRN PRN udc 12/28/20 [Rx Last Taken 01/24/21] potassium chloride 20 meq PO BID 01/24/21 [History Last Taken 01/24/21] insulin glargine 100 unit/mL (3 mL) subcutaneous pen 25 unit SC DAILY #15 ml 01/28/21 [Rx Last Taken Unknown] amoxicillin-pot clavulanate 875 mg PO Q12H #20 tab 02/18/21 [Rx Last Taken Unknown] Lantus Solostar U-100 Insulin 25 unit SUBCUT QHS #15 ml 03/20/21 [Rx Last Taken Unknown] cephalexin 500 mg PO Q6 #40 capsule 05/31/21 [Rx Last Taken Unknown] omeprazole 20 mg PO DAILY 05/31/21 [History Last Taken Unknown] insulin lispro 100 unit/mL subcutaneous pen 30 unit SUBCUT TID #15 ml 06/16/21 [Rx Last Taken Unknown] blood sugar diagnostic #200 ea 09/08/21 [Rx Last Taken Unknown] pen needle, diabetic 32 gauge x #360 ea 09/08/21 [Rx Last Taken Unknown] ondansetron 4 mg PO Q8H PRN #21 tab 09/15/21 [Rx Last Taken Unknown] Allergy/AdvReac Type Severity Reaction Status Date / Time Milk Containing Products AdvReac Diarrhea Verified 09/28/21 23:24 Family History Father Polysubstance overdose Patient father young secondary to OD. Mother Iron deficiency anemia Other Asthma CVA (cerebral vascular accident) Diabetes Hypertension Thyroid disorder Surgical History Hx of knee surgery Surgical History unable to obtain Social History housing: other details: Lives with his grandmother, aunt and mother. Smoking Status: Never smoker alcohol intake: never substance use type: does not use ROS Constitutional Constitutional: Reports malaise; Denies body ache(s) or headache(s) Eyes Eyes: Denies blurry vision or change in vision ENT HEENT: Denies headache(s), nasal congestion or nasal discharge Cardiovascular Cardiovascular: Reports dyspnea; Denies chest pain Respiratory/Chest Respiratory/Chest: Reports dyspnea; Denies cough Gastrointestinal Gastrointestinal: Reports abdominal pain, nausea and vomiting Genitourinary Genitourinary: Denies difficulty urinating Musculoskeletal Musculoskeletal: Denies arthralgias or back pain Integumentary Integumentary: Denies lesions, rash or skin ulcer Neurologic Neurologic: Denies abnormal gait or abnormal speech Psychiatric Psychiatric: Denies anxiety or depression Endocrine Endocrinology: Denies fatigue Hematologic/Lymphatic Hematologic/Lymphatic: Denies easy bleeding or easy bruising Physical Exam Const alert and no apparent distress General Appearance: cooperative HEENT normocephalic and head/scalp atraumatic Eyes PERRL, EOMs intact bilaterally and conjunctivae normal Neck supple General: trachea midline Chest inspection of chest normal Resp Effort and Inspection: tachypneic Auscultation: Negative for rales, rhonchi or wheezes Cardio S1 normal heart sound and S2 normal heart sound Rate: tachycardic GI normal to inspection, nondistended, normoactive bowel sounds Extremity no clubbing, cyanosis or edema Skin no rashes or lesions noted Neuro moves all extremities and no focal motor deficits Psych Mood & Affect: flat affect Lab / Micro Data Result Diagrams: 09/29/21 05:30 09/29/21 12:15 Labs: Laboratory Results - last 24 hr 09/29/21 01:06: Sodium 126 L, Potassium 5.0, Chloride 97 L, Carbon Dioxide 6.0 L*, Anion Gap 23 H, BUN 23 H, Creatinine 1.36 H, Estim Creat Clear Calc 82.27, Est GFR (MDRD) Af Amer 85, Est GFR (MDRD) Non-Af 71, BUN/Creatinine Ratio 16.9, Glucose 529 H*, Calcium 9.8, Magnesium 2.2, Troponin I High Sens 6 09/29/21 01:06: Acetone Level MODERATE H 09/29/21 01:06: WBC 11.6 H, RBC 6.23 H, Hgb 17.7 H, Hct 51.7, MCV 83.0, MCH 28.4, MCHC 34.2, RDW Std Deviation 38.2, RDW Coeff of Rabia 12.8, Plt Count 510 H, MPV 9.8, Immature Gran % (Auto) 1.600 H, Neut % (Auto) 81.6 H, Lymph % (Auto) 9.8 L, [place] % (Auto) 6.4, Eos % (Auto) 0.2, Baso % (Auto) 0.4, Absolute Neuts (auto) 9.4 H, Absolute Lymphs (auto) 1.13, Nucleated RBC % 0 09/29/21 01:06: Urine Color Yellow, Urine Clarity Clear, Urine pH 5.0, Ur Specific [place] 1.025, Urine Protein 100 H, Urine Glucose (UA) 1000 H, Urine Ketones 150 A*, Urine Occult Blood 10 H, Urine Nitrite Negative, Urine Bilirubin Negative, Urine Urobilinogen Normal, Ur Leukocyte Esterase Negative, Urine RBC 0 SEEN, Urine WBC 0 SEEN, Ur Squamous Epith Cells 0 SEEN, Urine Bacteria 0 SEEN, Urine Mucus 0 SEEN 09/29/21 01:06: Phosphorus 4.3 09/29/21 01:06: Procalcitonin 0.30 H 09/29/21 01:15: POC Glucose 499 H* 09/29/21 02:51: POC Glucose 459 H* 09/29/21 03:40: Sodium 126 L, Potassium 4.5, Chloride 98, Carbon Dioxide 4.0 L*, Anion Gap 24 H, BUN 22 H, Creatinine 1.18, Estim Creat Clear Calc 94.82, Est GFR (MDRD) Af Amer 100, Est GFR (MDRD) Non-Af 83, BUN/Creatinine Ratio 18.6, Glucose 498 H*, Calcium 8.9 09/29/21 04:59: POC Glucose 362 H 09/29/21 05:30: Sodium 129 L, Potassium 4.1, Chloride 102, Carbon Dioxide 6.0 L*, Anion Gap 21 H, BUN 23 H, Creatinine 1.20, Estim Creat Clear Calc 101.11, Est GFR (MDRD) Af Amer 99, Est GFR (MDRD) Non-Af 81, BUN/Creatinine Ratio 19.2, Glucose 358 H, Calcium 8.7 09/29/21 05:30: WBC 13.3 H, RBC 6.14, Hgb 17.6 H, Hct 51.1, MCV 83.2, MCH 28.7, MCHC 34.4, RDW Std Deviation 38.2, RDW Coeff of Rabia 12.8, Plt Count 437, MPV 9.6, Immature Gran % (Auto) 1.400 H, Neut % (Auto) 82.1 H, Lymph % (Auto) 8.3 L, [place] % (Auto) 7.7, Eos % (Auto) 0.0, Baso % (Auto) 0.5, Absolute Neuts (auto) 10.9 H, Absolute Lymphs (auto) 1.10, Nucleated RBC % 0 09/29/21 05:30: Hemoglobin A1c 10.1 H 09/29/21 06:20: POC Glucose 298 H 09/29/21 07:06: POC Glucose 300 H 09/29/21 08:01: POC Glucose 237 H 09/29/21 08:10: Sodium 135 L, Potassium 4.1, Chloride 106, Carbon Dioxide 5.0 L*, Anion Gap 24 H, BUN 20 H, Creatinine 0.92, Estim Creat Clear Calc 131.88, Est GFR (MDRD) Af Amer 134, Est GFR (MDRD) Non-Af 110, BUN/Creatinine Ratio 21.7 H, Glucose 262 H, Calcium 8.0 L 09/29/21 09:11: POC Glucose 290 H 09/29/21 10:59: POC Glucose 374 H 09/29/21 12:09: POC Glucose 329 H 09/29/21 12:15: Sodium 132 L, Potassium 3.7, Chloride 107, Carbon Dioxide 7.0 L*, Anion Gap 18 H, BUN 18, Creatinine 0.94, Estim Creat Clear Calc 129.08, Est GFR (MDRD) Af Amer 131, Est GFR (MDRD) Non-Af 108, BUN/Creatinine Ratio 19.2, Glucose 292 H, Calcium 8.1 L Micro: Microbiology 09/29/21 01:28 Nasal Secretion SARS-CoV-2 Antigen (Rapid) - Final Radiology Impression Chest X-Ray 09/29/21 00:41 IMPRESSION: No acute cardiopulmonary disease. Electronically Signed: Berna Bardales MD at 1:43 EST , Service support , Charges/Coding Visit Charges Inpatient E&M: 45015 Init Hosp L3
[2021-09-29 13:25] LABS: Bedside Glucose 238 mg/dL (70-110)
[2021-09-29] MEDS: Lactated Ringers 1,000 ML 999 ML IV ×2 (13:41→14:48)
[2021-09-29] MEDS: Potassium Chloride 10mEq/100mL 10 MEQ/100 ML IV.SOLN. 100 MEQ IV BOLUS ×4 (13:56→17:53)
[2021-09-29 14:25] LABS: Bedside Glucose 167 mg/dL (70-110)
--- NOTE | 2021-09-29 15:10 | CASEMGMT ---
VERONA FONTANEZ Face to Face with patient for initial transition planning/care coordination assessment. VERONA FONTANEZ introduced self and role at [facility]. Patient lying in bed, alert and oriented. Patient willing to participate in assessment and is able to answer all questions appropriately. Care providers, pharmacy, and demographics verified. Patient wishes to discharge home, denies need for home health at this time. Patient states he has no further needs or concerns at this time. CM to follow for discharge planning needs that may arise. 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 Preferred Pharmacy: [facility] Insurance: [employer] Prescription Benefit: yes Living Will/HPOA: none LNOK: mother, grandmother Living Arrangements: Patient lives with grandmother, mother, brother, aunt, and cousin in a 2 story home. Patient states he is independent at home. Transportation: grandmother DME/C: patient states he has a cane, glucometer with all testing supplies, and insulin with supplies. Patient has been cancelling nutritional appointments due to work. 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 Joana MONTEZ, RN, CM
--- NOTE | 2021-09-29 15:51 | NS ---
Patient missed 09/29/21 appointment with diabetes nurse educator at [facility]. Discussed w/ patient, he is agreeable to having his outpatient appointments with [facility] rescheduled. Rescheduled w/ outpatient dietitianValerie for 10/18/21 at 3:00PM. Rescheduled w/ outpatient diabetes nurse educator, Ivy for 10/27/21 at 1:30PM. [facility] phone number: [phone]. Patient has an active referral from JAS Gamboa MS, RDN, LD
[2021-09-29 15:56] LABS: Bedside Glucose 149 mg/dL (70-110)
[2021-09-29 16:10] LABS: Anion Gap 11 (5-15); BUN 17 mg/dL (7-18); BUN/Creat Ratio 21.6 RATIO (10-20); Chloride 112 mmol/L (98-107); Creatinine, Serum 0.79 mg/dL (0.70-1.30); EST Glomerular Filtration Rate 132 mL/min (>60); Est Glom Filt Rate - Afr Amer 160 mL/min (>60); Estimated Creatinine Clearance 153.59 ml/min; Glucose 141 mg/dL (74-106); Potassium 3.7 mmol/L (3.5-5.1); Sodium Level 135 mmol/L (136-145)
[2021-09-29 16:51] LABS: Bedside Glucose 135 mg/dL (70-110)
--- NOTE | 2021-09-29 18:32 | PCM.HOSP.N ---
Hospitalist Note Patient was seen and examined today, he has been hospitalized many times over the past year related to his type 1 diabetes. Patient is alert, mucous membranes are dry, I have elected to increase the patient's IV fluids and continue to monitor his blood sugars, he is currently on an insulin drip at the time of my exam this morning.
[2021-09-29 18:51] LABS: Bedside Glucose 183 mg/dL (70-110)
[2021-09-29 20:22] LABS: Anion Gap 8 (5-15); BUN 13 mg/dL (7-18); BUN/Creat Ratio 15.3 RATIO (10-20); Calcium,Total 8.1 mg/dL (8.5-10.1); Chloride 112 mmol/L (98-107); Creatinine, Serum 0.85 mg/dL (0.70-1.30); EST Glomerular Filtration Rate 122 mL/min (>60); Est Glom Filt Rate - Afr Amer 147 mL/min (>60); Estimated Creatinine Clearance 142.75 ml/min; Glucose 161 mg/dL (74-106); Potassium 3.3 mmol/L (3.5-5.1); Sodium Level 136 mmol/L (136-145)
--- NOTE | 2021-09-29 20:47 | PCM.HOSP.N ---
Hospitalist Note AG closed x 2. Will transition of insulin drip to home SC regimen in addition to scheduled TID short acting with overlapping ISS ACHS/early am to be cautious, transition off fluids, initiate ADA 1800 diet, transition out of the ICU to [place].
[2021-09-29 20:51] LABS: Bedside Glucose 153 mg/dL (70-110)
[2021-09-29 20:51] LABS: Bedside Glucose 124 mg/dL (70-110)
[2021-09-29 22:10] LABS: Bedside Glucose 101 mg/dL (70-110)
[2021-09-29] MEDS: Potassium Chloride Oral Tablet 20 MEQ 40 MEQ PO (22:26)
[2021-09-30] VITALS: BP 117/52; PULSE 130; RESP 20; TEMP 36.6; O2SAT 100
[2021-09-30] MEDS: Insulin Lispro 100 UNIT/ML INSULN.PEN SC ×2 (02:46→09:02)
[2021-09-30 02:56] LABS: Bedside Glucose 179 mg/dL (70-110)
[2021-09-30 04:00] VITALS: BP 101/64; PULSE 120; RESP 16; TEMP 37; O2SAT 100
[2021-09-30 04:39] LABS: Absolute Lymphocyte Count 1.13 X10^3/uL (0.83-4.51); Absolute Neutrophil Count 1.8 X10^3/uL (2.0-7.7); Basophil# 0.03 X10^3/uL; Basophil% 0.9 % (0-1); Eosinophil# 0.07 X10^3/uL; Eosinophils% 2.1 % (0-5); Hematocrit 34.9 % (40-54); Hemoglobin 12.5 g/dL (13.0-16.5); Lymphocyte # 1.13 X10^3/ul (0.83-4.51); Lymphocyte % 33.4 % (19-41); Mean Corp Hgb Conc 35.8 g/dL (32-36); Mean Corpuscular Hgb 28.3 pg (27.0-32.0); Mean Corpuscular Volume 79.1 fL (80-94); Mean Platelet Vol. 9.1 fl (6.2-12.0); Monocyte# 0.37 X10^3/uL; Monocyte% 10.9 % (0-10); NRBC Flagged by Analyzer 0 % (0-5); Neutrophil # 1.76 X10^3/uL (2.7-7.7); Neutrophil % 52.1 % (47-70); Platelet Count 261 K/mm3 (150-450); RBC Distribution Width CV 12.3 % (11.6-14.6); RBC Distribution Width SD 35.4 fl (35.1-43.9); Red Blood Count 4.41 M/mm3 (4.6-6.2); White Blood Count 3.4 K/mm3 (4.4-11.0)
[2021-09-30 05:02] LABS: ALB/GLOB Ratio 1.1 RATIO (0.9-2.4); AST(SGOT) 9 U/L (15-37); Alanine Aminotransfer ALT/SGPT 11 U/L (16-61); Albumin, Serum 2.9 g/dL (3.2-5.0); Alkaline Phosphatase 92 U/L (45-117); Anion Gap 9 (5-15); BUN 12 mg/dL (7-18); BUN/Creat Ratio 15.2 RATIO (10-20); Calcium,Total 8.4 mg/dL (8.5-10.1); Chloride 108 mmol/L (98-107); Creatinine, Serum 0.79 mg/dL (0.70-1.30); EST Glomerular Filtration Rate 132 mL/min (>60); Est Glom Filt Rate - Afr Amer 160 mL/min (>60); Estimated Creatinine Clearance 153.38 ml/min; Globulin 2.7 g/dL (2.2-4.2); Glucose 216 mg/dL (74-106); Potassium 3.2 mmol/L (3.5-5.1); Protein, Total 5.6 g/dL (6.4-8.2); Sodium Level 136 mmol/L (136-145)
[2021-09-30 08:55] LABS: Bedside Glucose 217 mg/dL (70-110)
[2021-09-30] MEDS: Potassium Chloride Oral Tablet 20 MEQ 40 MEQ PO (08:55)
[2021-09-30 09:00] VITALS: BP 142/65; PULSE 117; RESP 18; TEMP 36.7; O2SAT 100
[2021-09-30] MEDS: Insulin Lispro 100 UNIT/ML INSULN.PEN 30 UNIT SC (09:02)
--- NOTE | 2021-09-30 10:43 | CASEMGMT ---
RN CM NOTE: Magali, test manager, has scheduled appts for pt to see OP test manager and diabetic nurse educator. RN CM documented appointments in pt's discharge plan. Ena MERCEDES CM
[2021-09-30 12:31] LABS: Bedside Glucose 83 mg/dL (70-110)
[2021-09-30] MEDS: Insulin Lispro 100 UNIT/ML INSULN.PEN 15 UNIT SC (13:05)
--- NOTE | 2021-09-30 14:06 | DCINST_ITS ---
Discharge Instructions Diet Discharge Diet: 2200 Calorie Control Diet Activity Discharge Activity: Return to Normal Activity Weight Bearing Status: Full weight bearing Follow Up Care Test Results: Test results from this visit will be discussed in further detail at your follow-up appointment, if applicable. Discharge Plan Admission Admit Date/Time: 09/29/21 02:50 Primary Reason for Your Visit: DKA Attending Provider: Satish Be Primary Care Provider: Tori Butler Discharge Orders/Prescriptions Prescriptions: New acetaminophen [Tylenol] 325 mg Tablet 650 mg PO Q4H PRN PRN (Reason: Fever, pain 1-08/21) Qty: 1 RF: 0 insulin lispro [Humalog KwikPen Insulin] 100 unit/mL Insulin Pen 15 unit subcut TIDCM Qty: 0 RF: 0 Lantus Solostar U-100 Insulin 100 unit/mL (3 mL) Insulin Pen 30 units subcut QHS Qty: 0 RF: 0 Continued (DME) OneTouch Verio test strips Strip See Rx Instructions .ROUTE .MEDSUPPLY Qty: 200 RF: 6 (DME) pen needle, diabetic [BD Ultra-Fine Lorin Pen Needle] 32 gauge x 5/32 needle See Rx Instructions .ROUTE .MEDSUPPLY Qty: 360 RF: 6 albuterol sulfate 1 INHALER inhaler 2 puff INHALATION Q4H PRN PRN (Reason: Wheezing) RF: 0 omeprazole 20 mg Capsule,Delayed Release(Dr/Ec) 20 mg PO DAILY RF: 0 ondansetron 4 mg tablet,disintegrating 4 mg PO Q8H PRN (Reason: nausea and vomiting) Qty: 21 RF: 0 Discontinued insulin lispro [Humalog KwikPen Insulin] 100 unit/mL insulin pen 30 unit subcut TID Qty: 15 RF: 6 acetaminophen 650 MG/20 ML solution 650 mg PO Q6H PRN PRN (Reason: Pain Score 1-3 /Temp>100.7) RF: 0 potassium chloride 20 MEQ tablet 20 meq PO BID RF: 0 amoxicillin-pot clavulanate 875 MG tablet 875 mg PO Q12H Qty: 20 RF: 0 cephalexin [cephalexin] 500 MG capsule 500 mg PO Q6 Qty: 40 RF: 0 Lantus Solostar U-100 Insulin 100 unit/mL (3 mL) Insulin Pen 28 unit SUBCUT QHS RF: 0 Referrals / Follow Up: 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
[2021-09-30 14:13] VITALS: O2SAT 100
[2021-09-30 14:50] VITALS: BP 129/66; PULSE 127; RESP 16; TEMP 36.8; O2SAT 99
--- NOTE | 2021-09-30 15:08 | DS.PCM_ITS ---
Providers Date of Admission: 09/29/21 Date of Discharge: 09/30/21 Primary Care Physician: Dr. Tori Butler MD Reason For Visit: DKA Diagnosis Discharge Diagnosis (1) DKA (diabetic ketoacidoses): Status: Acute Code(s): E11.10 - Type 2 diabetes mellitus with ketoacidosis without coma Qualifiers: Diabetes mellitus complication detail: with coma Diabetes mellitus type: type 1 Qualified Code(s): E10.11 - Type 1 diabetes mellitus with ketoacidosis with coma Plan: 1. Diabetic ketoacidosis #2 uncontrolled type 1 diabetes #3 gastroesophageal reflux disease Medications at Discharge Home Medications albuterol sulfate 2 puff INHALATION Q4H PRN PRN 02/15/19 omeprazole 20 mg PO DAILY 05/31/21 blood sugar diagnostic #200 ea 09/08/21 pen needle, diabetic 32 gauge x #360 ea 09/08/21 ondansetron 4 mg PO Q8H PRN #21 tab 09/15/21 acetaminophen [Tylenol] 650 mg PO Q4H PRN PRN #1 tab 09/30/21 insulin glargine [Lantus Solostar U-100 Insulin] 30 units SUBCUT QHS #0 ml 09/30/21 insulin lispro [Humalog KwikPen Insulin] 15 unit SUBCUT TIDCM #0 ml 09/30/21 Hospital Course Operations None Procedures None Summary of Care Provided Minutes Spent on Discharge: 31 Hospital Course: This 20-year-old white male was seen in the emergency room at [facility] with a chief complaint of shortness of breath. Patient also complained of excessive thirst, patient has been in the hospital many times for DKA. Work-up in the emergency room showed an elevated blood sugar at 529, patient's anion gap was 23. Patient's white blood cell count was elevated. Patient was felt to be in DKA, he was admitted to ICU and IV fluids were administered as well as IV insulin. Patient was seen in consultation by critical care physician. Patient's blood sugar stabilized. On 09/30/2021, patient was seen and examined: On examination he appeared in good health and spirits. Vital signs as documented. Skin warm and dry and without overt rashes. Neck without JVD, neck was supple, trachea midline, thyroid was normal. Lungs clear bilaterally, normal air movement was noted. Heart exam notable for regular rhythm, normal sounds and absence of murmurs, rubs or gallops. Abdomen unremarkable and without evidence of organomegaly, masses, or abdominal aortic enlargement. Bowel sounds are present, abdomen is not distended. Extremities nonedematous, no cyanosis was noted, no clubbing was noted. Neuro: Cranial nerves II through XII are grossly intact, no focal motor deficits were noted, sensation to light touch and pinprick intact, motor exam 5/5 throughout. Psych: Patient is alert and oriented x3, he does not appear anxious or depressed, he does not appear agitated. On 09/30/2021, patient was seen and examined and felt to be in stable condition for discharge home. Weight / BMI Weight Weight: 72.7 kg Body Mass Index (BMI) 21.2 ABG / Lab / Microbiology Data Result Diagrams: 09/30/21 04:30 09/30/21 04:30 Laboratory: Laboratory Results - last 24 hr 09/29/21 15:47: POC Glucose 149 H 09/29/21 15:50: Sodium 135 L, Potassium 3.7, Chloride 112 H, Carbon Dioxide 12.0 L, Anion Gap 11, BUN 17, Creatinine 0.79, Estim Creat Clear Calc 153.59, Est GFR (MDRD) Af Amer 160, Est GFR (MDRD) Non-Af 132, BUN/Creatinine Ratio 21.6 H, Glucose 141 H, Calcium 8.0 L 09/29/21 16:45: POC Glucose 135 H 09/29/21 18:45: POC Glucose 183 H 09/29/21 19:48: POC Glucose 153 H 09/29/21 20:00: Sodium 136, Potassium 3.3 L, Chloride 112 H, Carbon Dioxide 16.0 L, Anion Gap 8, BUN 13, Creatinine 0.85, Estim Creat Clear Calc 142.75, Est GFR (MDRD) Af Amer 147, Est GFR (MDRD) Non-Af 122, BUN/Creatinine Ratio 15.3, Glucose 161 H, Calcium 8.1 L 09/29/21 20:44: POC Glucose 124 H 09/29/21 21:58: POC Glucose 101 09/30/21 02:45: POC Glucose 179 H 09/30/21 04:30: WBC 3.4 L, RBC 4.41 L, Hgb 12.5 L, Hct 34.9 L, MCV 79.1 L, MCH 28.3, MCHC 35.8, RDW Std Deviation 35.4, RDW Coeff of Rabia 12.3, Plt Count 261, MPV 9.1, Immature Gran % (Auto) 0.600, Neut % (Auto) 52.1, Lymph % (Auto) 33.4, [place] % (Auto) 10.9 H, Eos % (Auto) 2.1, Baso % (Auto) 0.9, Absolute Neuts (auto) 1.8 L, Absolute Lymphs (auto) 1.13, Nucleated RBC % 0 09/30/21 04:30: Sodium 136, Potassium 3.2 L, Chloride 108 H, Carbon Dioxide 19.0 L, Anion Gap 9, BUN 12, Creatinine 0.79, Estim Creat Clear Calc 153.38, Est GFR (MDRD) Af Amer 160, Est GFR (MDRD) Non-Af 132, BUN/Creatinine Ratio 15.2, Glucose 216 H, Calcium 8.4 L, Total Bilirubin 2.30 H, AST 9 L, ALT 11 L, Alkaline Phosphatase 92, Total Protein 5.6 L, Albumin 2.9 L, Globulin 2.7, Albumin/Globulin Ratio 1.1 09/30/21 08:46: POC Glucose 217 H 09/30/21 12:25: POC Glucose 83 Microbiology: Microbiology 09/29/21 01:28 Nasal Secretion SARS-CoV-2 Antigen (Rapid) - Final D/C Instructions Discharge Diet: 2200 Calorie Control Diet Weight Bearing Status: Full weight bearing Meaningful Use Info Meaningful Use Diagnoses (Choose all that apply): None applicable Discharge Plan Admission Admit Date/Time: 09/29/21 02:50 Primary Reason for Your Visit: DKA Attending Provider: Satish Be Primary Care Provider: Tori Butler Discharge Orders/Prescriptions Prescriptions: New acetaminophen [Tylenol] 325 mg Tablet 650 mg PO Q4H PRN PRN (Reason: Fever, pain 1-08/21) Qty: 1 RF: 0 insulin lispro [Humalog KwikPen Insulin] 100 unit/mL Insulin Pen 15 unit subcut TIDCM Qty: 0 RF: 0 Lantus Solostar U-100 Insulin 100 unit/mL (3 mL) Insulin Pen 30 units subcut QHS Qty: 0 RF: 0 Continued (DME) OneTouch Verio test strips Strip See Rx Instructions .ROUTE .MEDSUPPLY Qty: 200 RF: 6 (DME) pen needle, diabetic [BD Ultra-Fine Lorin Pen Needle] 32 gauge x 5/32 needle See Rx Instructions .ROUTE .MEDSUPPLY Qty: 360 RF: 6 albuterol sulfate 1 INHALER inhaler 2 puff INHALATION Q4H PRN PRN (Reason: Wheezing) RF: 0 omeprazole 20 mg Capsule,Delayed Release(Dr/Ec) 20 mg PO DAILY RF: 0 ondansetron 4 mg tablet,disintegrating 4 mg PO Q8H PRN (Reason: nausea and vomiting) Qty: 21 RF: 0 Discontinued insulin lispro [Humalog KwikPen Insulin] 100 unit/mL insulin pen 30 unit subcut TID Qty: 15 RF: 6 acetaminophen 650 MG/20 ML solution 650 mg PO Q6H PRN PRN (Reason: Pain Score 1-3 /Temp>100.7) RF: 0 potassium chloride 20 MEQ tablet 20 meq PO BID RF: 0 amoxicillin-pot clavulanate 875 MG tablet 875 mg PO Q12H Qty: 20 RF: 0 cephalexin [cephalexin] 500 MG capsule 500 mg PO Q6 Qty: 40 RF: 0 Lantus Solostar U-100 Insulin 100 unit/mL (3 mL) Insulin Pen 28 unit SUBCUT QHS RF: 0 Referrals / Follow Up: 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
[2021-09-30 16:35] LABS: Bedside Glucose 87 mg/dL (70-110)
== END 2021-09-30 16:32 | disposition home or self-care (01) | DRG 420 ==
LOC: ED 09-29 01:07 → ICU 09-29 03:11
PROVIDERS: Admitting Provider Family Medicine; Emergency Provider Student in an Organized Health Care Education/Training Program; PCP Pediatrics; Visit Provider Internal Medicine
DX: E10.10 Type 1 diabetes mellitus with ketoacidosis without coma (principal); N17.9 Acute kidney failure, unspecified; E86.0 Dehydration; R10.9 Unspecified abdominal pain; Z20.822 Contact with and (suspected) exposure to COVID-19; J45.909 Unspecified asthma, uncomplicated; K21.9 Gastro-esophageal reflux disease without esophagitis; Z91.19 Patient's noncompliance with other medical treatment and regimen; Z79.4 Long term (current) use of insulin; Z79.899 Other long term (current) drug therapy
CPT/HCPCS: 71045; 80048; 80053; 81001; 82009; 82962; 83036; 83735; 84100; 84145; 84484; 85025; 87426; 93005; 97802; 99283; J7030; J7120; J7799

== ENCOUNTER → 2021-10-10 23:02 | Outpatient (CLI) | payer MEDICAID, SELFPAY | PROVIDERS: PCP Pediatrics; Referring Provider Physician Assistant; Visit Provider Physician Assistant | DX: Z11.52 Encounter for screening for COVID-19 (principal) | CPT/HCPCS: 87635; U0005; U0003 ==

== ENCOUNTER 2021-11-18 14:15 | Inpatient (IN) | payer MEDICAID, SELFPAY ==
[2021-11-18] VITALS (13 sets, daily range): BP systolic 100–135; BP diastolic 50–90; PULSE 111–130; RESP 15–26; TEMP 35.9–36.4; O2SAT 98–100; BMI 19.6; BMI 19.3
--- NOTE | 2021-11-18 14:25 | EKG12_ITS ---
Test Reason : HYPERGLYCEMIA Blood Pressure : / mmHG Vent. Rate : 128 BPM Atrial Rate : 128 BPM P-R Int : 124 ms QRS Dur : 100 ms QT Int : 330 ms P-R-T Axes : 068 085 063 degrees QTc Int : 481 ms Sinus tachycardia Nonspecific T wave abnormality Confirmed by KEYANA CASTILLO, SEBASTIÁN ([id number]), senior editor AYESHA VALLE ([id number]) on 11/23/2021 11:17:47 AM Referred By: LIVAN/DONG Confirmed By:SEBASTIÁN RIDLEY MD
--- NOTE | 2021-11-18 14:27 | EX.ED.DYSGE1 ---
HPI History of Present Illness Chief Complaint: Hyperglycemia Informant: patient Onset/Context/Timing Onset: Days Context: Gradual Onset Narrative Narrative: Patient presents via EMS secondary to not feeling well for the past 3 days. He states when he woke up this morning he was more short of breath and has what probably prompted him to call EMS. He denies fever or chills. He did have some vomiting this morning. He states has been taking his insulin as prescribed and did take his insulin this morning. Blood sugar was 423 for squad. [facility] Medical History Asthma Diabetes mellitus type 1 Diabetes mellitus with ketoacidosis femur surgery GERD (gastroesophageal reflux disease) Nonhealing surgical wound Ulcer of leg, chronic Home Medications albuterol sulfate 2 puff INHALATION Q4H PRN PRN 02/15/19 [History Last Taken 12/09/20] omeprazole 20 mg PO DAILY 05/31/21 [History Last Taken Unknown] blood sugar diagnostic #200 ea 09/08/21 [Rx Last Taken Unknown] pen needle, diabetic 32 gauge x #360 ea 09/08/21 [Rx Last Taken Unknown] ondansetron 4 mg PO Q8H PRN #21 tab 09/15/21 [Rx Last Taken Unknown] acetaminophen [Tylenol] 650 mg PO Q4H PRN PRN #1 tab 09/30/21 [Rx Last Taken Unknown] insulin lispro [Humalog KwikPen Insulin] 15 unit SUBCUT TIDCM #0 ml 09/30/21 [Rx Last Taken Unknown] flash glucose sensor #2 ea 10/11/21 [Rx Last Taken Unknown] insulin glargine 100 unit/mL (3 mL) subcutaneous pen 30 unit SUBCUT QHS #15 ml 10/11/21 [Rx Last Taken Unknown] Allergy/AdvReac Type Severity Reaction Status Date / Time Milk Containing Products AdvReac Diarrhea Verified 10/11/21 15:15 Family History Father Polysubstance overdose Patient father young secondary to OD. Mother Iron deficiency anemia Other Asthma CVA (cerebral vascular accident) Diabetes Hypertension Thyroid disorder Surgical History Hx of knee surgery Social History housing: other details: Lives with his grandmother, aunt and mother. Smoking Status: Never smoker alcohol intake: never substance use type: does not use ROS ROS ED Constitutional Constitutional ED: Denies chills or fever(s) Eyes Eyes: Denies change in vision ENT ENT ED: Reports other Details: Congestion ; Denies sore throat Cardiovascular Cardiovascular: Denies chest pain Respiratory/Chest Respiratory/Chest: Reports dyspnea; Denies cough Gastrointestinal Gastrointestinal: Reports nausea and vomiting; Denies abdominal pain or diarrhea Genitourinary Genitourinary ED: Denies dysuria Musculoskeletal Musculoskeletal: Denies back pain Integumentary Denies rash Neurologic Neurologic: Reports weakness; Denies headache(s) Psychiatric Psychiatric: Denies anxiety Endocrine Endocrinology: Denies polyuria Allergic/Immunologic Allergic/Immunologic ED: Denies urticaria EXAM Physical Exam Const Vital Signs: 11/18/21 14:17 11/18/21 14:20 Temperature 97.6 F L 97.6 F L Temperature Source Temporal Temporal Pulse Rate 130 H 130 H Respiratory Rate 26 H 26 H Blood Pressure 135/90 H 135/90 H Blood Pressure Mean 105 105 Pulse Ox 100 100 Oxygen Delivery Method Room Air Room Air Positive well nourished and well developed General Appearance ED: well developed HEENT Reports dry mucous membranes Mouth ED: Yes dry mucous membranes Mouth: dry mucous membranes Eyes PERRL and EOMs intact bilaterally Neck supple Chest Wall inspection of chest normal and palpation of chest normal Resp Resp Narrative: Tachypneic. Good air movement noted bilaterally. Cardio Rate: tachycardic GI non-tender Auscultation: hypoactive bowel sounds Palpation: soft Extremity General Extremety ED: Negative for edema General Extremity: Negative for edema Neuro oriented x3 Sensorium / Orientation: alert Psych Mood & Affect: anxious Skin no rashes or lesions noted MDM MDM MDM Narrative Medical decision making narrative: Patient ordered 2 L of IV fluid. Lab work including serum acetone obtained. COVID swab ordered and portable chest x-ray. Lab Data Attestation: I reviewed the patient's lab results. Labs: Laboratory Results - last 24 hr 11/18/21 11/18/21 11/18/21 14:25 14:25 14:41 Sodium 131 L Potassium 3.7 Chloride 98 Carbon Dioxide 7.0 L* Anion Gap 26 H BUN 12 Creatinine 1.35 H Estim Creat Clear Calc 83.33 Est GFR (MDRD) Af Amer 86 Est GFR (MDRD) Non-Af 71 BUN/Creatinine Ratio 8.9 L Glucose 421 H Calcium 9.0 Total Bilirubin 1.60 H AST 9 L ALT 21 Alkaline Phosphatase 229 H Total Protein 8.5 H Albumin 4.9 Globulin 3.6 Albumin/Globulin Ratio 1.4 Acetone Level LARGE H POC Glucose 392 H Rapid COVID: Negative Radiography Chest X-Ray - ED: 1 View, Read by ED Physician and Chronic Changes Diagnostic Testing: Clinical Impression(s) from Imaging Studies Chest X-Ray 11/18/21 14:42 IMPRESSION: Normal x-ray examination of the chest. Electronically Signed: Willy Callahan MD at 15:02 EST , Service support , Treatment and Re-Evaluation Comments:: On repeat evaluation patient resting comfortably. Test results discussed with him. Patient is in DKA. Insulin drip has been ordered as well as IV fluids to run after the initial 2 L bolus. Hospitalist is paged for admission to ICU. Critical Care Time Critical Care Time: Yes Critical care time (excluding procedures): 30-74 minutes (30 minutes), Including time spent:, Discussing w/Patient &/or Family/Charter Coordinator and Arranging Admission or Transfer Discharge Plan Triage Chief Complaint: Hyperglycemia ED Provider: Delilah English Dx/Rx/DC Orders Clinical Impression: DKA (diabetic ketoacidosis) Prescriptions: No Action (DME) OneTouch Verio test strips Strip See Rx Instructions .ROUTE .MEDSUPPLY Qty: 200 RF: 6 (DME) pen needle, diabetic [BD Ultra-Fine Lorin Pen Needle] 32 gauge x 5/32 needle See Rx Instructions .ROUTE .MEDSUPPLY Qty: 360 RF: 6 Lantus Solostar U-100 Insulin 100 unit/mL (3 mL) insulin pen 30 unit subcut QHS Qty: 15 RF: 4 (DME) FreeStyle Niru 14 Day Sensor Kit See Rx Instructions .ROUTE .MEDSUPPLY Qty: 2 RF: 5 albuterol sulfate 1 INHALER inhaler 2 puff INHALATION Q4H PRN PRN (Reason: Wheezing) RF: 0 omeprazole 20 mg Capsule,Delayed Release(Dr/Ec) 20 mg PO DAILY RF: 0 ondansetron 4 mg tablet,disintegrating 4 mg PO Q8H PRN (Reason: nausea and vomiting) Qty: 21 RF: 0 acetaminophen [Tylenol] 325 mg Tablet 650 mg PO Q4H PRN PRN (Reason: Fever, pain 1-08/21) Qty: 1 RF: 0 insulin lispro [Humalog KwikPen Insulin] 100 unit/mL Insulin Pen 15 unit subcut TIDCM Qty: 0 RF: 0 Primary Care Provider: Tori Butler Referrals: Tori Butler MD [Primary Care Provider] - Disposition Disposition: Acute Care Hospital [facility]
--- NOTE | 2021-11-18 14:42 | RAD_ITS ---
STUDY: X-RAY CHEST REASON FOR EXAM: Male, 20 years old. Sob TECHNIQUE: Single AP portable view of the chest. COMPARISON: Comparison is made with prior study dated 09/19/2021. FINDINGS: The lungs are clear and expanded. There is no demonstrated pleural abnormality. Normal size heart. Normal mediastinum and rudi. Normal visualized pulmonary arteries. Normal visualized aortic arch and descending thoracic aorta. Normal visualized thoracic spine. Normal visualized ribs, clavicles, and shoulders. There is no demonstrated abnormality of the visualized soft tissue structures of the upper abdomen. RAD/Chest 1 View (Portable) IMPRESSION: Normal x-ray examination of the chest. Electronically Signed: Willy Callahan MD at 15:02 EST , Service support ,
[2021-11-18 14:46] LABS: Bedside Glucose 392 mg/dL (70-110)
[2021-11-18] MEDS: 0.9% Normal Saline 1,000 ML 999 ML IV ×2 (15:05→16:01)
[2021-11-18 15:13] LABS: ALB/GLOB Ratio 1.4 RATIO (0.9-2.4); AST(SGOT) 9 U/L (15-37); Alanine Aminotransfer ALT/SGPT 21 U/L (16-61); Albumin, Serum 4.9 g/dL (3.2-5.0); Alkaline Phosphatase 229 U/L (45-117); Anion Gap 26 (5-15); BUN 12 mg/dL (7-18); BUN/Creat Ratio 8.9 RATIO (10-20); Chloride 98 mmol/L (98-107); Creatinine, Serum 1.35 mg/dL (0.70-1.30); EST Glomerular Filtration Rate 71 mL/min (>60); Est Glom Filt Rate - Afr Amer 86 mL/min (>60); Estimated Creatinine Clearance 83.33 ml/min; Globulin 3.6 g/dL (2.2-4.2); Glucose 421 mg/dL (74-106); Potassium 3.7 mmol/L (3.5-5.1); Protein, Total 8.5 g/dL (6.4-8.2); Sodium Level 131 mmol/L (136-145)
--- NOTE | 2021-11-18 15:54 | PCM.HP.STD ---
HPI - General General Date of Admission: 11/18/21 Date of Service: 11/18/21 Chief Complaint: Fatigue, malaise, increased BS. HPI Narrative The patient is a 18 y/o M w/ PMHx: Diabetes mellitus type I following w/ Endocrinology Dr. Galindo with most recent evaluation noted 10/11/21 w/ HgbAc 11.1% at that time noted to have presented to his visits with completely filled out log sheets and at that time openly admitted that he has been making up his blood sugars, GERD, Asthma, most recently admitted 09/29/2021 with DKA at that time who now presents to the [facility] ED on 11/18/20 with history of days of increased blood sugars, decreased appetite, increased fatigue, malaise, abdominal discomfort with nausea, increased respiratory rate with polydipsia and polyuria consistent with his prior presentations of DKA prompting ED evaluation. He states that he has been compliant with his blood sugar checks and his insulin but has been noncompliant with his diet. He notes he has been stressed recently and has been taking care of his grandmother who fell down the stairs and broke an ankle therefore his intake is not been very appropriate. Work-up in the ED included T97.6, heart rate 130, BP 135/90, respiratory rate 26, 100% on room air, CBC pending upon requested evaluation of patient, CMP with sodium 131, carbon oxide 7, anion gap 26, BUN/creatinine 12/1.35, glucose 421, total bilirubin 1.60, AST/ALT 9/21, alk phos 229, acetone level large, rapid COVID antigen negative, chest x-ray with no acute cardiopulmonary findings. In the ED patient administered normal saline with total of 3 L requested and initiated on an insulin drip. [facility] Medical History (Updated 11/18/21 @ 16:[address] Ashley Kapoor MD) Asthma Diabetes mellitus type 1 Diabetes mellitus with ketoacidosis femur surgery GERD (gastroesophageal reflux disease) Nonhealing surgical wound Ulcer of leg, chronic Home Medications albuterol sulfate 2 puff INHALATION Q4H PRN PRN 02/15/19 [History Last Taken 11/18/21] omeprazole 20 mg PO DAILY 05/31/21 [History Last Taken Unknown] blood sugar diagnostic #200 ea 09/08/21 [Rx Last Taken Unknown] pen needle, diabetic 32 gauge x #360 ea 09/08/21 [Rx Last Taken Unknown] ondansetron 4 mg PO Q8H PRN #21 tab 09/15/21 [Rx Last Taken Unknown] acetaminophen [Tylenol] 650 mg PO Q4H PRN PRN #1 tab 09/30/21 [Rx Last Taken 3 Days Ago ~11/15/21] insulin lispro [Humalog KwikPen Insulin] 15 unit SUBCUT TIDCM #0 ml 09/30/21 [Rx Last Taken 11/17/21] flash glucose sensor #2 ea 10/11/21 [Rx Last Taken Unknown] insulin glargine 100 unit/mL (3 mL) subcutaneous pen 30 unit SUBCUT QHS #15 ml 10/11/21 [Rx Last Taken 11/17/21] Allergy/AdvReac Type Severity Reaction Status Date / Time Milk Containing Products AdvReac Diarrhea Verified 10/11/21 15:15 Family History Father Polysubstance overdose Patient father young secondary to OD. Mother Iron deficiency anemia Other Asthma CVA (cerebral vascular accident) Diabetes Hypertension Thyroid disorder Surgical History (Updated 11/18/21 @ 16:[address] Ashley Kapoor MD) History of surgery on extremity Hx of knee surgery Social History housing: other details: Lives with his grandmother, aunt and mother. Smoking Status: Never smoker alcohol intake: never substance use type: does not use ROS ROS Narrative Admission Review of Systems: CONSTITUTIONAL: No weight loss, fever, + chills, weakness or fatigue. HEENT: Eyes: No visual loss, blurred vision, double vision or yellow sclerae. Ears, Nose, Throat: No hearing loss, sneezing, congestion, runny nose or sore throat. SKIN: No rash or itching, lesions, wounds. CARDIOVASCULAR: No chest pain, chest pressure or chest discomfort, palpitations, edema, orthopnea, syncopal events. RESPIRATORY: + shortness of breath, increased RR, No cough or sputum, wheezing, hemoptysis. GASTROINTESTINAL: + anorexia, nausea without vomiting, abdominal discomfort, No diarrhea, melena, BRBPR. GENITOURINARY: + Polyuria. No dysuria, urgency or retention. NEUROLOGICAL: No headache, dizziness, syncope, paralysis, ataxia, numbness or tingling in the extremities, focal weakness, change in bowel or bladder control, seizure. MUSCULOSKELETAL: + muscle, back pain, joint pain or stiffness. HEMATOLOGIC: No anemia, bleeding or bruising. LYMPHATICS: No enlarged nodes. No history of splenectomy. PSYCHIATRIC: No history of depression or anxiety. ENDOCRINOLOGIC: + reports of sweating, cold or heat intolerance. + polyuria or polydipsia. ALLERGIES: No history of asthma, hives, eczema or rhinitis. Vital Signs Vital Signs Vital Signs: 11/18/21 14:17 11/18/21 14:20 Temperature 97.6 F L 97.6 F L Temperature Source Temporal Temporal Pulse Rate 130 H 130 H Respiratory Rate 26 H 26 H Blood Pressure 135/90 H 135/90 H Blood Pressure Mean 105 105 Pulse Ox 100 100 Oxygen Delivery Method Room Air Room Air Weight Weight: 148 lb 12.992 oz Body Mass Index (BMI) 19.6 Physical Exam Narrative Physical Examination: General: Awake, alert, oriented x 3 and cooperative, lying in the ED bed on his side, position, fatigued and uncomfortable appearing, increased respiratory rate. Skin: Normal color, normal turgor, no icterus, no cyanosis. HEENT: AT/NC, EOMI, PERRLA, dry MM, no carotid bruits or JVD noted. Lungs: Mildly diminished, greater bases, increased respiratory rate, no rales, ronchi or wheezing. Heart: Tachycardic with regular rhythm; no gallop, rub audible. Abdomen: Soft, generalized discomfort with palpation with no rebound or guarding, ND, mildly hyperactive BS, no obvious evidence of HSM. Extremities: No cyanosis, clubbing, or edema. Well-healed left posterior thigh from prior abscess and debridement, scar. Neurological: Patient awake, alert, oriented as noted, cognitive function intact; pupils equally reactive to light and accommodation, cranial nerves II-XII grossly normal, moving all 4 extremities, no focal deficits, strength severely globally decreased secondary to acute presentation and complaints. Psychiatric: Affect appears fatigued, uncomfortable, ill-appearing, no acute evidence of depressive or anxiety feelings. Results Lab / Micro Data Result Diagrams: 11/18/21 14:25 11/18/21 14:25 Labs: Laboratory Results - last 24 hr 11/18/21 14:25: Sodium 131 L, Potassium 3.7, Chloride 98, Carbon Dioxide 7.0 L*, Anion Gap 26 H, BUN 12, Creatinine 1.35 H, Estim Creat Clear Calc 83.33, Est GFR (MDRD) Af Amer 86, Est GFR (MDRD) Non-Af 71, BUN/Creatinine Ratio 8.9 L, Glucose 421 H, Calcium 9.0, Total Bilirubin 1.60 H, AST 9 L, ALT 21, Alkaline Phosphatase 229 H, Total Protein 8.5 H, Albumin 4.9, Globulin 3.6, Albumin/Globulin Ratio 1.4 11/18/21 14:25: Acetone Level LARGE H 11/18/21 14:41: POC Glucose 392 H Micro: Microbiology 11/18/21 14:44 Nasal Secretion SARS-CoV-2 Antigen (Rapid) - Final Radiology Impression Chest X-Ray 11/18/21 14:42 IMPRESSION: Normal x-ray examination of the chest. Electronically Signed: Willy Callahan MD at 15:02 EST , Service support , Assessment & Plan Assessment/Plan (1) DKA (diabetic ketoacidosis): QUALIFIERS: Diabetes mellitus type: type 1 Diabetes mellitus complication detail: without coma Qualified Code(s): E10.10 - Type 1 diabetes mellitus with ketoacidosis without coma PLAN: The patient is a 18 y/o M w/ PMHx: Diabetes mellitus type I following w/ Endocrinology Dr. Galindo with most recent evaluation noted 10/11/21 w/ HgbAc 11.1% at that time noted to have presented to his visits with completely filled out log sheets and at that time openly admitted that he has been making up his blood sugars, GERD, Asthma, most recently admitted 09/29/2021 with DKA at that time who now presents to the [facility] ED on 11/18/20 with history of days of increased blood sugars, decreased appetite, increased fatigue, malaise, abdominal discomfort with nausea, increased respiratory rate with polydipsia and polyuria. #1. Acute DKA w/ Diabetes mellitus type I: Will admit to the ICU, continue on insulin drip, check serial K+, glucose w/ IVF changes pending these levels, serial chemistry, obtain mag, phos daily w/ repletion as needed, transition to home SC regimen when gap closed w/ overlap on drip, nutrition consultation, hemoglobin A1c requested, encouraged diet and insulin regimen compliance. Manager Packaging consulted given ICU admission with DKA. #2. Acute renal insufficiency: Secondary to acute presentation as noted, DKA. Admission BUN/Cr 12/1.35, prior baseline creatinine noted to be 0.8-1. Will hydrate as noted #1, hold nephrotoxic medications and trend BMPs as noted above, DKA protocol. #3. Asthma, chronic: Not on routine regimen per current list, PRN albuterol, encourage head of bed and I-S. #4. GERD: Maintain on PPI. #5. DVT prophylaxis: SCDs, Lovenox. Charges/Coding Visit Charges Inpatient E&M: 08328 Init Hosp L2
[2021-11-18 16:15] LABS: Bedside Glucose 250 mg/dL (70-110)
[2021-11-18 16:43] LABS: Phosphorus 3.8 mg/dL (2.5-4.9)
[2021-11-18 17:01] LABS: Anion Gap 28 (5-15); BUN 13 mg/dL (7-18); BUN/Creat Ratio 9.6 RATIO (10-20); Calcium,Total 9.2 mg/dL (8.5-10.1); Chloride 98 mmol/L (98-107); Creatinine, Serum 1.36 mg/dL (0.70-1.30); EST Glomerular Filtration Rate 70 mL/min (>60); Est Glom Filt Rate - Afr Amer 85 mL/min (>60); Estimated Creatinine Clearance 82.72 ml/min; Glucose 426 mg/dL (74-106); Magnesium 2.5 mg/dL (1.6-2.6); Potassium 3.7 mmol/L (3.5-5.1); Sodium Level 131 mmol/L (136-145)
[2021-11-18] MEDS: 0.9% Normal Saline 1,000 ML 500 ML IV (17:12)
[2021-11-18 17:15] LABS: Bedside Glucose 177 mg/dL (70-110)
[2021-11-18 17:25] LABS: Absolute Neutrophil Count 6.8 X10^3/uL (2.0-7.7); Basophil# 0.21 X10^3/uL; Basophil% 1.7 % (0-1); Eosinophils% 0.8 % (0-5); Hematocrit 52.3 % (40-54); Hemoglobin 17.8 g/dL (13.0-16.5); Lymphocyte % 35.7 % (19-41); Mean Corpuscular Hgb 28.8 pg (27.0-32.0); Mean Corpuscular Volume 84.5 fL (80-94); Mean Platelet Vol. 11.1 fl (6.2-12.0); Monocyte# 0.68 X10^3/uL; Monocyte% 5.5 % (0-10); NRBC Flagged by Analyzer 0 % (0-5); Neutrophil # 6.83 X10^3/uL (2.7-7.7); Neutrophil % 55.3 % (47-70); Platelet Count 530 K/mm3 (150-450); RBC Distribution Width CV 14.4 % (11.6-14.6); RBC Distribution Width SD 43.8 fl (35.1-43.9); Red Blood Count 6.19 M/mm3 (4.6-6.2); White Blood Count 12.3 K/mm3 (4.4-11.0)
[2021-11-18] MEDS: Dext 5%-0.45% NS 1,000 ML 150 ML IV (18:30)
[2021-11-18 19:06] LABS: Bedside Glucose 110 mg/dL (70-110)
[2021-11-18] MEDS: 0.9% Saline Lock 10 ML Syringe IV ×2 (19:49→21:16)
[2021-11-18 19:56] LABS: Bedside Glucose 124 mg/dL (70-110)
[2021-11-18 20:35] LABS: Anion Gap 15 (5-15); BUN 13 mg/dL (7-18); BUN/Creat Ratio 14.8 RATIO (10-20); Calcium,Total 8.4 mg/dL (8.5-10.1); Chloride 114 mmol/L (98-107); Creatinine, Serum 0.88 mg/dL (0.70-1.30); EST Glomerular Filtration Rate 117 mL/min (>60); Est Glom Filt Rate - Afr Amer 142 mL/min (>60); Estimated Creatinine Clearance 126.14 ml/min; Glucose 109 mg/dL (74-106); Potassium 2.9 mmol/L (3.5-5.1); Sodium Level 138 mmol/L (136-145)
[2021-11-18 20:40] LABS: Bedside Glucose 114 mg/dL (70-110)
[2021-11-18] MEDS: Potassium Chloride Oral Tablet 20 MEQ 60 MEQ PO (21:17)
[2021-11-18 21:40] LABS: Bedside Glucose 110 mg/dL (70-110)
[2021-11-18 22:51] LABS: Bedside Glucose 121 mg/dL (70-110)
[2021-11-18 23:36] LABS: Bedside Glucose 120 mg/dL (70-110)
[2021-11-19] VITALS (13 sets, daily range): BP systolic 88–132; BP diastolic 42–78; PULSE 106–123; RESP 13–22; TEMP 36.9–37.4; O2SAT 98–99
[2021-11-19 00:35] LABS: Bedside Glucose 109 mg/dL (70-110)
[2021-11-19 00:54] LABS: Anion Gap 10 (5-15); BUN 13 mg/dL (7-18); Calcium,Total 8.5 mg/dL (8.5-10.1); Chloride 116 mmol/L (98-107); Creatinine, Serum 0.87 mg/dL (0.70-1.30); EST Glomerular Filtration Rate 118 mL/min (>60); Est Glom Filt Rate - Afr Amer 143 mL/min (>60); Estimated Creatinine Clearance 127.59 ml/min; Glucose 114 mg/dL (74-106); Potassium 2.9 mmol/L (3.5-5.1); Sodium Level 140 mmol/L (136-145)
[2021-11-19] MEDS: Dext 5%-0.45% NS 1,000 ML 150 ML IV (01:11)
[2021-11-19 01:51] LABS: Bedside Glucose 95 mg/dL (70-110)
[2021-11-19] MEDS: Potassium Chloride Oral Tablet 20 MEQ 60 MEQ PO ×2 (02:18→05:46)
[2021-11-19 02:36] LABS: Bedside Glucose 108 mg/dL (70-110)
[2021-11-19 03:40] LABS: Bedside Glucose 99 mg/dL (70-110)
[2021-11-19 04:17] LABS: Absolute Lymphocyte Count 1.13 X10^3/uL (0.83-4.51); Basophil# 0.04 X10^3/uL; Eosinophil# 0.07 X10^3/uL; Eosinophils% 1.8 % (0-5); Hematocrit 37.2 % (40-54); Hemoglobin 13.8 g/dL (13.0-16.5); Lymphocyte # 1.13 X10^3/ul (0.83-4.51); Lymphocyte % 29.7 % (19-41); Mean Corp Hgb Conc 37.1 g/dL (32-36); Mean Corpuscular Hgb 29.2 pg (27.0-32.0); Mean Corpuscular Volume 78.8 fL (80-94); Mean Platelet Vol. 9.4 fl (6.2-12.0); Monocyte# 0.53 X10^3/uL; Monocyte% 13.9 % (0-10); NRBC Flagged by Analyzer 0 % (0-5); Neutrophil # 2.02 X10^3/uL (2.7-7.7); Neutrophil % 53.1 % (47-70); Platelet Count 292 K/mm3 (150-450); RBC Distribution Width CV 14.5 % (11.6-14.6); RBC Distribution Width SD 41.2 fl (35.1-43.9); Red Blood Count 4.72 M/mm3 (4.6-6.2); White Blood Count 3.8 K/mm3 (4.4-11.0)
[2021-11-19 04:37] LABS: Anion Gap 8 (5-15); BUN 13 mg/dL (7-18); BUN/Creat Ratio 18.1 RATIO (10-20); Chloride 115 mmol/L (98-107); Creatinine, Serum 0.72 mg/dL (0.70-1.30); EST Glomerular Filtration Rate 147 mL/min (>60); Est Glom Filt Rate - Afr Amer 178 mL/min (>60); Estimated Creatinine Clearance 154.17 ml/min; Glucose 97 mg/dL (74-106); Potassium 2.9 mmol/L (3.5-5.1); Sodium Level 139 mmol/L (136-145)
[2021-11-19 04:46] LABS: Bedside Glucose 96 mg/dL (70-110)
[2021-11-19] MEDS: Dext 5%-0.45% NS 1,000 ML 250 ML IV (05:19)
[2021-11-19 05:46] LABS: Bedside Glucose 82 mg/dL (70-110)
[2021-11-19 06:45] LABS: Bedside Glucose 73 mg/dL (70-110)
[2021-11-19 08:01] LABS: Bedside Glucose 250 mg/dL (70-110)
[2021-11-19] MEDS: Pantoprazole Sodium 20 MG Tablet PO (08:09)
[2021-11-19 08:29] LABS: Hemoglobin A1c 11.9 % (3.8-5.6)
[2021-11-19 08:55] LABS: Bedside Glucose 295 mg/dL (70-110)
[2021-11-19] MEDS: Insulin Lispro 100 UNIT/ML INSULN.PEN SC ×2 (09:29→12:48)
[2021-11-19 09:50] LABS: Anion Gap 12 (5-15); BUN 12 mg/dL (7-18); BUN/Creat Ratio 16.9 RATIO (10-20); Calcium,Total 8.4 mg/dL (8.5-10.1); Chloride 110 mmol/L (98-107); Creatinine, Serum 0.71 mg/dL (0.70-1.30); EST Glomerular Filtration Rate 150 mL/min (>60); Est Glom Filt Rate - Afr Amer 181 mL/min (>60); Glucose 297 mg/dL (74-106); Potassium 3.7 mmol/L (3.5-5.1); Sodium Level 136 mmol/L (136-145)
[2021-11-19 11:55] LABS: Bedside Glucose 341 mg/dL (70-110)
--- NOTE | 2021-11-19 13:20 | PCM.DC.SUM ---
Providers Date of Admission: 11/18/21 Primary Care Physician: Dr. Tori Butler MD Consultations 11/18/21 18:25 Consult: [employer] Business [employer] Developer / Pulmonary Medicine Routine Consulting Provider: Pb Momin Reason for Consult: DKA EMERGENT Consult: No MD Notified: Yes Date Notified: 11/18/21 Time Notified: 16:07 Method of Notification: cortext Reason For Visit: DKA Diagnosis Discharge Diagnosis (1) DKA (diabetic ketoacidosis): Status: Acute Code(s): E11.10 - Type 2 diabetes mellitus with ketoacidosis without coma Qualifiers: Diabetes mellitus type: type 1 Diabetes mellitus complication detail: without coma Qualified Code(s): E10.10 - Type 1 diabetes mellitus with ketoacidosis without coma Medications at Discharge Home Medications albuterol sulfate 2 puff INHALATION Q4H PRN PRN 02/15/19 omeprazole 20 mg PO DAILY 05/31/21 blood sugar diagnostic #200 ea 09/08/21 pen needle, diabetic 32 gauge x 5/32 #360 ea 09/08/21 ondansetron 4 mg PO Q8H PRN #21 tab 09/15/21 acetaminophen [Tylenol] 650 mg PO Q4H PRN PRN #1 tab 09/30/21 insulin lispro [Humalog KwikPen Insulin] 15 unit SUBCUT TIDCM #0 ml 09/30/21 flash glucose sensor #2 ea 10/11/21 insulin glargine 100 unit/mL (3 mL) subcutaneous pen 30 unit SUBCUT QHS #15 ml 10/11/21 Hospital Course Operations None Procedures None Summary of Care Provided Minutes Spent on Discharge: 26 Hospital Course: Mr. Carlton is a 20-year-old white male who presented to the emergency department [facility] on 11/18/2021 with a chief complaint of fatigue, malaise, and elevated blood sugars. The patient is a known type I diabetic with a recent hemoglobin A1c on 10/11/2021 of 11.1 who openly admitted to writing down false blood sugars at his most recent endocrinology appointment. On the day of presentation he complained of elevated blood sugars on his glucometer, decreased appetite, fatigue, malaise, and abdominal discomfort with nausea, as well as tachypnea polydipsia, and polyuria. He reported he feels like he is in DKA as he has had issues with DKA previously. He states has been compliant with his blood sugar checks and his insulin but has not been compliant with his diet. He also noted that recent stress has been high as he has been taking care of his grandmother who fell down the stairs and broke her ankle. In the emergency department his vital signs were stable his CMP showed a sodium of 131, a serum bicarb of 7, and anion gap of 26, a BUN of 12 a creatinine of 1.35, and a serum blood glucose level of 421. His liver enzymes were normal other than a mildly elevated bilirubin at 1.6. He had large acetone in his blood. His rapid Covid test was negative. He was given IV fluids and an insulin drip was initiated in the emergency department. He was admitted to the ICU for further care. He was able to be transitioned off his insulin drip early this morning and placed on his basal insulin and mealtime log dosing. He was able to tolerate breakfast without any issues and his nausea and vomiting had resolved. He stated he was close to his baseline other than fatigue on the day of discharge. He did have mild hypokalemia with correction of his acidosis due to cellular shifts and this was corrected with oral potassium supplementation. He states he has all his insulin and supplies at home including glucometer and strips and has no needs at discharge for supplies or insulin. I recommend he follow-up with Dr. Galindo within 1 month given his admission for DKA but it does appear that noncompliance may be the cause for his admission. It does appear he is here on a fairly frequent basis for DKA. He was discharged home in stable condition on 11/19/2021. Discharge diagnoses: DKA-resolved [id number] Asthma GERD Medical noncompliance/nonadherence Physical Exam Const alert, oriented x3 and no apparent distress Constitutional Narrative: Thin young white male sitting up in bed, appears comfortable, nontoxic, watching television General Appearance: cooperative, comfortable, well developed and disheveled Orientation / Consciousness: awake HEENT normocephalic, head/scalp atraumatic, hearing grossly normal bilaterally and moist oral mucous membranes HEENT Narrative: Poor dentition, Mallampati 2, no thrush Resp normal respiratory effort, no retractions, no use of accessory muscles and clear to auscultation bilaterally Auscultation: Negative for crackles, rales, rhonchi or wheezes Cardio regular rate, regular rhythm, S1 normal heart sound, S2 normal heart sound, no murmurs, no rub, no gallops, no clicks and no JVD GI normal to inspection, nondistended, normoactive bowel sounds, soft to palpation, non-tender and non-distended Extremity no clubbing, cyanosis or edema Skin no rashes or lesions noted Neuro oriented x3, CN's II-XII intact bilaterally, moves all extremities and no focal motor deficits Sensorium / Orientation: awake and alert Speech: speech normal Psych Psych Narrative: Affect is flat Weight / BMI Weight Weight: 66.2 kg Body Mass Index (BMI) 19.3 ABG / Lab / Microbiology Data Result Diagrams: 11/19/21 04:00 11/19/21 09:30 Laboratory: Laboratory Results - last 24 hr 11/18/21 14:25: WBC 12.3 H, RBC 6.19, Hgb 17.8 H, Hct 52.3, MCV 84.5, MCH 28.8, MCHC 34.0, RDW Std Deviation 43.8, RDW Coeff of Rabia 14.4, Plt Count 530 H, MPV 11.1, Immature Gran % (Auto) 1.000 H, Neut % (Auto) 55.3, Lymph % (Auto) 35.7, Dickinson % (Auto) 5.5, Eos % (Auto) 0.8, Baso % (Auto) 1.7 H, Absolute Neuts (auto) 6.8, Absolute Lymphs (auto) 4.40, Nucleated RBC % 0 11/18/21 14:25: Sodium 131 L, Potassium 3.7, Chloride 98, Carbon Dioxide 7.0 L*, Anion Gap 26 H, BUN 12, Creatinine 1.35 H, Estim Creat Clear Calc 83.33, Est GFR (MDRD) Af Amer 86, Est GFR (MDRD) Non-Af 71, BUN/Creatinine Ratio 8.9 L, Glucose 421 H, Calcium 9.0, Total Bilirubin 1.60 H, AST 9 L, ALT 21, Alkaline Phosphatase 229 H, Total Protein 8.5 H, Albumin 4.9, Globulin 3.6, Albumin/Globulin Ratio 1.4 11/18/21 14:25: Acetone Level LARGE H 11/18/21 14:25: Sodium 131 L, Potassium 3.7, Chloride 98, Carbon Dioxide 5.0 L*, Anion Gap 28 H, BUN 13, Creatinine 1.36 H, Estim Creat Clear Calc 82.72, Est GFR (MDRD) Af Amer 85, Est GFR (MDRD) Non-Af 70, BUN/Creatinine Ratio 9.6 L, Glucose 426 H, Calcium 9.2, Magnesium 2.5 11/18/21 14:25: Phosphorus 3.8 11/18/21 14:41: POC Glucose 392 H 11/18/21 16:07: POC Glucose 250 H 11/18/21 17:08: POC Glucose 177 H 11/18/21 18:21: POC Glucose 110 11/18/21 19:31: POC Glucose 124 H 11/18/21 20:00: Sodium 138, Potassium 2.9 L, Chloride 114 H, Carbon Dioxide 9.0 L*, Anion Gap 15, BUN 13, Creatinine 0.88, Estim Creat Clear Calc 126.14, Est GFR (MDRD) Af Amer 142, Est GFR (MDRD) Non-Af 117, BUN/Creatinine Ratio 14.8, Glucose 109 H, Calcium 8.4 L 11/18/21 20:33: POC Glucose 114 H 11/18/21 21:34: POC Glucose 110 11/18/21 22:47: POC Glucose 121 H 11/18/21 23:32: POC Glucose 120 H 11/19/21 00:00: Sodium 140, Potassium 2.9 L, Chloride 116 H, Carbon Dioxide 14.0 L, Anion Gap 10, BUN 13, Creatinine 0.87, Estim Creat Clear Calc 127.59, Est GFR (MDRD) Af Amer 143, Est GFR (MDRD) Non-Af 118, BUN/Creatinine Ratio 15.0, Glucose 114 H, Calcium 8.5 11/19/21 00:33: POC Glucose 109 11/19/21 01:31: POC Glucose 95 11/19/21 02:27: POC Glucose 108 11/19/21 03:35: POC Glucose 99 11/19/21 04:00: Sodium 139, Potassium 2.9 L, Chloride 115 H, Carbon Dioxide 16.0 L, Anion Gap 8, BUN 13, Creatinine 0.72, Estim Creat Clear Calc 154.17, Est GFR (MDRD) Af Amer 178, Est GFR (MDRD) Non-Af 147, BUN/Creatinine Ratio 18.1, Glucose 97, Calcium 8.0 L 11/19/21 04:00: WBC 3.8 L, RBC 4.72, Hgb 13.8, Hct 37.2 L, MCV 78.8 L D, MCH 29.2, MCHC 37.1 H D, RDW Std Deviation 41.2, RDW Coeff of Rabia 14.5, Plt Count 292, MPV 9.4, Immature Gran % (Auto) 0.500, Neut % (Auto) 53.1, Lymph % (Auto) 29.7, Dickinson % (Auto) 13.9 H, Eos % (Auto) 1.8, Baso % (Auto) 1.0, Absolute Neuts (auto) 2.0, Absolute Lymphs (auto) 1.13, Nucleated RBC % 0 11/19/21 04:00: Hemoglobin A1c 11.9 H 11/19/21 04:31: POC Glucose 96 11/19/21 05:36: POC Glucose 82 11/19/21 06:39: POC Glucose 73 11/19/21 07:56: POC Glucose 250 H 11/19/21 08:51: POC Glucose 295 H 11/19/21 09:30: Sodium 136, Potassium 3.7, Chloride 110 H, Carbon Dioxide 14.0 L, Anion Gap 12, BUN 12, Creatinine 0.71, Estim Creat Clear Calc 155.40, Est GFR (MDRD) Af Amer 181, Est GFR (MDRD) Non-Af 150, BUN/Creatinine Ratio 16.9, Glucose 297 H, Calcium 8.4 L 11/19/21 11:53: POC Glucose 341 H Microbiology: Microbiology 11/18/21 14:44 Nasal Secretion SARS-CoV-2 Antigen (Rapid) - Final Radiography Diagnostic Testing: Radiology Impression Chest X-Ray 11/18/21 14:42 IMPRESSION: Normal x-ray examination of the chest. Electronically Signed: Willy Callahan MD at 15:02 EST , Service support , D/C Instructions Discharge Diet: 2000 Calorie Control Diet Discharge Activity: Return to Normal Activity Meaningful Use Info Meaningful Use Diagnoses (Choose all that apply): None applicable Discharge Plan Admission Admit Date/Time: 11/18/21 16:03 Primary Reason for Your Visit: DKA Attending Provider: Elizabeth Alvarez Primary Care Provider: Tori Butler Consulting Providers: Pb Momin Discharge Orders/Prescriptions Prescriptions: Continued (DME) OneTouch Verio test strips Strip See Rx Instructions .ROUTE .MEDSUPPLY Qty: 200 RF: 6 (DME) pen needle, diabetic [BD Ultra-Fine Lorin Pen Needle] 32 gauge x 5/32 needle See Rx Instructions .ROUTE .MEDSUPPLY Qty: 360 RF: 6 Lantus Solostar U-100 Insulin 100 unit/mL (3 mL) insulin pen 30 unit subcut QHS Qty: 15 RF: 4 (DME) FreeStyle Niru 14 Day Sensor Kit See Rx Instructions .ROUTE .MEDSUPPLY Qty: 2 RF: 5 albuterol sulfate 1 INHALER inhaler 2 puff INHALATION Q4H PRN PRN (Reason: Wheezing) RF: 0 omeprazole 20 mg Capsule,Delayed Release(Dr/Ec) 20 mg PO DAILY RF: 0 ondansetron 4 mg tablet,disintegrating 4 mg PO Q8H PRN (Reason: nausea and vomiting) Qty: 21 RF: 0 acetaminophen [Tylenol] 325 mg Tablet 650 mg PO Q4H PRN PRN (Reason: Fever, pain 1-08/21) Qty: 1 RF: 0 insulin lispro [Humalog KwikPen Insulin] 100 unit/mL Insulin Pen 15 unit subcut TIDCM Qty: 0 RF: 0 Referrals / Follow Up: Tori Butler MD [Primary Care Provider] - See Referral Note (as needed) Lauro Galindo MD [STAFF PHYSICIAN] - Within 1 Month (Hospital f/u for DKA) Disposition Disposition (needs filled in before D/C Order can be placed): Home, Self Care Charges/Coding Visit Charges Inpatient E&M: 15515 Disch Hosp
== END 2021-11-19 14:00 | disposition home or self-care (01) | DRG 420 ==
LOC: ED 16:08 → ICU 17:16
PROVIDERS: Admitting Provider Family Medicine; Emergency Provider Emergency Medicine; PCP Pediatrics; Visit Provider Internal Medicine
DX: E10.10 Type 1 diabetes mellitus with ketoacidosis without coma (principal); E87.6 Hypokalemia; Z79.4 Long term (current) use of insulin; J45.909 Unspecified asthma, uncomplicated; K21.9 Gastro-esophageal reflux disease without esophagitis; Z91.19 Patient's noncompliance with other medical treatment and regimen; Z79.899 Other long term (current) drug therapy
CPT/HCPCS: 71045; 80048; 80053; 82009; 82962; 83036; 83735; 84100; 85025; 87426; 93005; 99285; J7030; A4216; J7799

== ENCOUNTER 2022-01-27 15:37 | Inpatient (IN) | payer MEDICAID, SELFPAY ==
[2022-01-27] VITALS (10 sets, daily range): BP systolic 111–124; BP diastolic 71–89; PULSE 120–146; RESP 14–27; TEMP 36.1–37.1; O2SAT 99–100; BMI 22.2
[2022-01-27 16:30] LABS: Absolute Lymphocyte Count 1.49 X10^3/uL (0.83-4.51); Absolute Neutrophil Count 14.4 X10^3/uL (2.0-7.7); Basophil# 0.06 X10^3/uL; Basophil% 0.3 % (0-1); Lymphocyte # 1.49 X10^3/ul (0.83-4.51); Lymphocyte % 8.6 % (19-41); Mean Corp Hgb Conc 36.7 g/dL (32-36); Mean Corpuscular Hgb 30.6 pg (27.0-32.0); Mean Corpuscular Volume 83.3 fL (80-94); Mean Platelet Vol. 9.6 fl (6.2-12.0); Monocyte# 1.19 X10^3/uL; Monocyte% 6.8 % (0-10); NRBC Flagged by Analyzer 0 % (0-5); Neutrophil # 14.44 X10^3/uL (2.7-7.7); Platelet Count 457 K/mm3 (150-450); RBC Distribution Width CV 12.5 % (11.6-14.6); RBC Distribution Width SD 37.3 fl (35.1-43.9); Red Blood Count 6.12 M/mm3 (4.6-6.2); White Blood Count 17.4 K/mm3 (4.4-11.0)
[2022-01-27 16:33] LABS: Hemoglobin 18.7 g/dL (13.0-16.5)
[2022-01-27 16:52] LABS: Anion Gap 22 (5-15); BUN 24 mg/dL (7-18); BUN/Creat Ratio 16.2 RATIO (10-20); Calcium,Total 9.7 mg/dL (8.5-10.1); Chloride 97 mmol/L (98-107); Creatinine, Serum 1.48 mg/dL (0.70-1.30); EST Glomerular Filtration Rate 64 mL/min (>60); Est Glom Filt Rate - Afr Amer 77 mL/min (>60); Estimated Creatinine Clearance 76.99 ml/min; Glucose 342 mg/dL (74-106); Potassium 5.5 mmol/L (3.5-5.1); Sodium Level 125 mmol/L (136-145)
--- NOTE | 2022-01-27 17:10 | ED.VIS.GI ---
HPI HPI - GI History of Present Illness Chief Complaint: Abd Pain Narrative Narrative: Patient is a 21-year-old male past medical history of insulin-dependent diabetes states that he has had nausea and vomiting and diffuse abdominal pain for the last day. His symptoms began yesterday. He states his blood sugars have been not that bad. He is not having any diarrhea. He presents because of the abdominal pain and cramping, and the nausea and vomiting. He states that he thinks he may have been in diabetic ketoacidosis previously. No exacerbating or alleviating factors. [facility] Medical History (Updated 01/27/22 @ 18:[address] 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 Ulcer of leg, chronic Uncontrolled type 1 diabetes mellitus Home Medications blood sugar diagnostic #200 ea 09/08/21 [Rx Last Taken Unknown] pen needle, diabetic 32 gauge x #360 ea 09/08/21 [Rx Last Taken Unknown] flash glucose sensor #2 ea 10/11/21 [Rx Last Taken Unknown] insulin glargine [Lantus Solostar U-100 Insulin] 38 unit SUBCUT QHS 01/27/22 [History Last Taken Unknown] insulin lispro 30 unit SUBCUT TIDCM 01/27/22 [History Last Taken Unknown] Allergy/AdvReac Type Severity Reaction Status Date / Time Milk Containing Products AdvReac Diarrhea Verified 01/27/22 15:42 Family History Father Polysubstance overdose Patient father young secondary to OD. Mother Iron deficiency anemia Other Asthma CVA (cerebral vascular accident) Diabetes Hypertension Thyroid disorder Surgical History History of surgery on extremity Hx of knee surgery Social History housing: other details: Lives with his grandmother, aunt and mother. Smoking Status: Never smoker alcohol intake: never substance use type: does not use ROS ROS ED ROS Narrative Constitutional: No fever, no chills. HEENT: No sore throat. No neck pain. No loss of vision. No rhinorrhea. Cardiovascular: No chest pain. No palpitations. No pedal edema. Respiratory: No cough, no shortness of breath. Abdominal: Positive, diffuse abdominal pain. Positive nausea. 5 episodes of nonbloody vomiting. No diarrhea. Genitourinary: No dysuria. No hematuria. Musculoskeletal: No myalgias. No arthralgias. Neurologic: No headaches. No dizziness. No lightheadedness. Skin: No rash. No change in color. Psychiatric: No depression. No anxiety. EXAM Physical Exam Narrative Exam Narrative: Afebrile. Vital signs noted. HEENT: Normocephalic. Atraumatic. PERRL, EOMI. Neck soft and supple. No point tenderness or step off. Cardiovascular: Positive to tachycardia in the 140s. No murmurs, rubs, or gallops appreciated. Respiratory: No tachypnea. Lungs clear to auscultation bilaterally. Gastrointestinal: Abdomen soft, minimal diffuse tenderness to palpation, with normoactive bowel sounds. No rebound or guarding. Neurological: Awake. Alert. Nonfocal, nonlateralizing. Skin: No rash. Normal color. No pallor. Musculoskeletal: No pedal edema. Full range of motion extremities. Const Vital Signs: 01/27/22 15:39 01/27/22 17:02 01/27/22 18:24 Temperature 96.9 F L 97.9 F Temperature Source Temporal Temporal Pulse Rate 146 H 140 H 130 H Respiratory Rate 14 20 H Blood Pressure 112/75 124/71 H Blood Pressure Mean 87 88 Pulse Ox 100 100 99 Oxygen Delivery Method Room Air Room Air Room Air MDM MDM MDM Narrative Medical decision making narrative: Nursing protocol was started. He has an elevated white count of 17.4 which I think is nonspecific. His sodium is low at 125 with a chloride of 97, but his glucose is elevated at 342. He has an anion gap of 22 with a creatinine of 1.48. Concern is for diabetic ketoacidosis. I will add serum ketones. He will be bolused 2 L of IV fluids. Patient has an elevated white count of 17.4, hemoglobin hemoconcentrated at 18.7. Platelet count elevated 457. Electrolyte panel shows sodium low at 125 with a potassium of 5.5, chloride 97 and CO2 low at 6.0. Creatinine slightly elevated at 1.48 with a BUN of 24. Anion gap elevated at 22. Glucose elevated at 342. Serum ketones are large. He does have urine ketones of 150. There is no evidence of infection. Since he had an elevated white count and complained of abdominal pain, while I think it is secondary to DKA, I did obtain a CT of the abdomen pelvis which showed bladder wall thickening, but there is no evidence of infection on his urinalysis. I do not feel that antibiotics are indicated. Given his elevated anion gap, and large serum ketones, I do feel that the patient is in diabetic ketoacidosis. He was given a bolus of 8 units of insulin intravenously and started on an insulin drip. When I discussed central line placement with him, although he has 2 working IVs, he declined and states he does not want central line placement currently. He was administered Zofran for nausea initially. I discussed the patient with Dr. Ferrell with intensive care, then with Dr. Be for admission to the ICU. He is in guarded condition. Critical care time 32 minutes. Disposition is admit to the ICU in guarded condition Lab Data Attestation: I reviewed the patient's lab results. Labs: Laboratory Results - last 24 hr 01/27/22 01/27/22 01/27/22 16:20 16:20 17:05 WBC 17.4 H RBC 6.12 Hgb 18.7 H* Hct 51.0 MCV 83.3 MCH 30.6 MCHC 36.7 H RDW Std Deviation 37.3 RDW Coeff of Rabia 12.5 Plt Count 457 H MPV 9.6 Immature Gran % (Auto) 1.300 H Neut % (Auto) 83.0 H Lymph % (Auto) 8.6 L [place] % (Auto) 6.8 Eos % (Auto) 0.0 Baso % (Auto) 0.3 Absolute Neuts (auto) 14.4 H Absolute Lymphs (auto) 1.49 Nucleated RBC % 0 Diff Path Review May foll Sodium 125 L Potassium 5.5 H Chloride 97 L Carbon Dioxide 6.0 L* Anion Gap 22 H BUN 24 H Creatinine 1.48 H Estim Creat Clear Calc 76.99 Est GFR (MDRD) Af Amer 77 Est GFR (MDRD) Non-Af 64 BUN/Creatinine Ratio 16.2 Glucose 342 H Calcium 9.7 Urine Color Yellow Urine Clarity Clear Urine pH 5.0 Ur Specific [place] 1.025 Urine Protein 100 H Urine Glucose (UA) 1000 H Urine Ketones 150 A* Urine Occult Blood 50 H Urine Nitrite Negative Urine Bilirubin 1 H Urine Urobilinogen Normal Ur Leukocyte Esterase Negative Urine RBC 0-5 SEEN Urine WBC 0-5 SEEN Ur Squamous Epith Cells 0 SEEN Urine Bacteria 0 SEEN Hyaline Casts 10-25 SEEN Fine Granular Casts 5-10 SEEN Urine Mucus 0 SEEN Acetone Level POC Glucose 01/27/22 01/27/22 17:15 17:39 WBC RBC Hgb Hct MCV MCH MCHC RDW Std Deviation RDW Coeff of Rabia Plt Count MPV Immature Gran % (Auto) Neut % (Auto) Lymph % (Auto) [place] % (Auto) Eos % (Auto) Baso % (Auto) Absolute Neuts (auto) Absolute Lymphs (auto) Nucleated RBC % Diff Path Review Sodium Potassium Chloride Carbon Dioxide Anion Gap BUN Creatinine Estim Creat Clear Calc Est GFR (MDRD) Af Amer Est GFR (MDRD) Non-Af BUN/Creatinine Ratio Glucose Calcium Urine Color Urine Clarity Urine pH Ur Specific [place] Urine Protein Urine Glucose (UA) Urine Ketones Urine Occult Blood Urine Nitrite Urine Bilirubin Urine Urobilinogen Ur Leukocyte Esterase Urine RBC Urine WBC Ur Squamous Epith Cells Urine Bacteria Hyaline Casts Fine Granular Casts Urine Mucus Acetone Level LARGE H POC Glucose 376 H Radiography Diagnostic Testing: Clinical Impression(s) from Imaging Studies Abdomen/Pelvis CT 01/27/22 17:15 Critical Care Time Critical Care Time: Yes Critical care time (excluding procedures): 30-74 minutes (32), Including time spent:, Discussing w/Patient &/or Family/Special Duty Nurse, Discussing w/Consultants and Arranging Admission or Transfer Discharge Plan Triage Chief Complaint: Abd Pain ED Provider: Francisco J Meeks Dx/Rx/DC Orders Primary Care Provider: Tori Butler Disposition Disposition: Home, Self Care Discharge Date/Time: 01/27/22 19:15
[2022-01-27 17:11] LABS: Bacteria 0 SEEN /hpf (None Seen); Mucous, Urine 0 SEEN /hpf (<or=2+); Squamous Epithelial Cells - UA 0 SEEN /hpf (0-5)
[2022-01-27 17:13] LABS: Color, Urine Yellow (Yellow); Glucose, Dipstick 1000 mg/dl (Normal); Leukocyte Esterase-Dipstick Negative /ul (Negative); Nitrite-Dipstick Negative (Negative); Occult Blood-Urine 50 /ul (Negative); Protein-Dipstick 100 mg/dl (Negative); Specific Gravity, Urine 1.025 (1.002-1.030); Urine Clarity Clear (Clear); Urine Urobilinogen Normal (Normal)
[2022-01-27 17:15] LABS: Urine Bilirubin Dipstick 1 mg/dL (Negative)
--- NOTE | 2022-01-27 17:15 | EKG12_ITS ---
Test Reason : ABNL PAIN Blood Pressure : / mmHG Vent. Rate : 129 BPM Atrial Rate : 129 BPM P-R Int : 122 ms QRS Dur : 086 ms QT Int : 306 ms P-R-T Axes : 069 087 068 degrees QTc Int : 448 ms Sinus tachycardia Otherwise normal ECG Confirmed by SHERMAN CASTILLO, KEVIN ([id number]), deputy editor in chief AYESHA VALLE ([id number]) on 01/30/2022 11:11:37 A M Referred By: MARK Confirmed By:SUSY WHITAKER MD
--- NOTE | 2022-01-27 17:15 | CT_ITS ---
STUDY: CT Abdomen And Pelvis W/ Contrast Injection 01/27/2022 6:10 PM REASON FOR EXAM: Male, 21 years old. ABDOMINAL PAIN Pain TECHNIQUE: Transaxial images were obtained without oral contrast, and IV 100mL Isovue-300 intravenous contrast. Individualized dose optimization techniques were used for this CT. COMPARISON: None. FINDINGS: The visualized lung bases are unremarkable. The visualized portions of the heart are within normal limits. Normal liver. Normal gallbladder and extrahepatic biliary system. Normal spleen. Normal pancreas. Normal bilateral adrenal glands. No acute findings of the right kidney. No acute findings of the left kidney. Normal visualized stomach. Normal small intestine. Stool throughout the colon. The appendix is visualized and appears normal. There are no acute findings of the abdominal aorta. Normal inferior vena cava. Subcentimeter mesenteric lymph nodes. Urinary bladder wall has wall thickening. This can be related to a partially contractile state. However, a cystitis is not excluded. Urinalysis should be performed in an effort to exclude cystitis. Normal abdominal wall. Normal osseous structures. IMPRESSION: (NOT LISTED IN ORDER OF SIGNIFICANCE) Urinary bladder wall has wall thickening. This can be related to a partially contractile state. However, a cystitis is not excluded. Urinalysis should be performed in an effort to exclude cystitis. Other findings as above. Electronically Signed: Yung Mendoza MD at 18:11 EDT , CT/Abdomen/Pelvis W IV Cont ONLY
[2022-01-27 17:17] LABS: Ketone-Dipstick 150 mg/dl (Negative)
[2022-01-27 17:28] LABS: Hyaline Cast 10-25 SEEN /lpf (0-5)
[2022-01-27 17:29] LABS: Red Blood Cells-Urine 0-5 SEEN /hpf (0-5); White Blood Cells 0-5 SEEN /hpf (0-5)
[2022-01-27 17:30] LABS: Fine Granular Cast- Urine 5-10 SEEN /lpf (0-5)
[2022-01-27] MEDS: 0.9% Normal Saline 1,000 ML 999 ML IV ×3 (17:35→20:27)
[2022-01-27 17:46] LABS: Bedside Glucose 376 mg/dL (74-106)
[2022-01-27] MEDS: INSULIN LISPRO 6 UNIT IV (18:19)
[2022-01-27] MEDS: Ondansetron 4 MG/2 ML Vial IV ×2 (18:19→23:54)
--- NOTE | 2022-01-27 18:37 | HP.PCM.HOS_ITS ---
HPI - General General Date of Admission: 01/27/22 Date of Service: 01/27/22 Chief Complaint: Generalized abdominal pain, nausea and vomiting HPI Narrative SHIRA STEPHENSON, is a 21 M who presents to the emergency room at [facility] with chief complaint of diffuse abdominal pain along with nausea and vomiting over the last 48 hours. Patient has a known type I diabetic, he states he has been compliant with home insulin usage. Labs were obtained on the patient, white blood cell count was elevated at 17.4, hemoglobin was 18.7, platelet count was 457,000, patient's chemistry profile was remarkable for sodium of 125, potassium of 5.5, chloride of 97, bicarb of 6, anion gap of 22, BUN of 24, and creatinine of 1.48. Glucose was elevated at 342. Urinalysis showed urine ketones of 150, urine glucose was thousand, there was 0-5 RBCs and 0-5 WBCs seen in the urinalysis. No bacteria was noted. Patient's serum acetone level was large. Patient will be admitted to ICU for acute DKA, he will be placed on insulin drip and be given vigorous IV fluids. [facility] Medical History (Updated 01/27/22 @ 18:[address] 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 Mother Iron deficiency anemia Other Asthma CVA (cerebral vascular accident) Diabetes Hypertension Thyroid disorder Surgical History History of surgery on extremity Hx of knee surgery Social History housing: other details: Lives with his grandmother, aunt and mother. Smoking Status: Never smoker alcohol intake: never substance use type: does not use ROS Constitutional Constitutional: Reports anorexia, malaise, weakness and other Details: Patient complains of thirst ; Denies change in weight, fever(s) or night sweats Eyes Eyes: Denies blurry vision, change in vision, discharge from eye(s), double vision or eye pain ENT HEENT: Denies abnormal hearing, ear pain or nasal congestion Cardiovascular Cardiovascular: Denies chest pain, claudication, dyspnea on exertion, edema, lightheadedness or palpitations Respiratory/Chest Respiratory/Chest: Denies cough, dyspnea, excessive phlegm production, hemoptysis, productive cough, shortness of breath at rest or shortness of breath with exertion Gastrointestinal Gastrointestinal: Reports abdominal pain, nausea and vomiting; Denies constipation, diarrhea, dyspepsia, hematemesis, hematochezia or melena Genitourinary Genitourinary: Denies burning urination, difficulty urinating, dysuria, hematuria, nocturia, urinary frequency, urinary hesitancy, urinary incontinence or urinary urgency Musculoskeletal Musculoskeletal: Denies back pain, joint pain, joint stiffness, joint swelling, myalgias or neck pain Neurologic Neurologic: Denies abnormal gait, abnormal speech, dizziness, focal weakness, headache(s), loss of vision, numbness, other visual disturbances, paresthesias, syncope or tingling Psychiatric Psychiatric: Denies anxiety, cognitive impairment, depression, irritability, mood swings or suicidal ideation Endocrine Endocrinology: Reports other; Denies change in body appearance, cold intolerance, excessive sweating, heat intolerance, polydipsia or polyuria Hematologic/Lymphatic Hematologic/Lymphatic: Denies none, anemia, easy bleeding, easy bruising or lymphadenopathy Allergic/Immunologic Allergic/Immunologic: Denies rhinitis, urticaria, eczemia or asthma Vital Signs Vital Signs Vital Signs: 01/27/22 15:39 01/27/22 17:02 01/27/22 18:24 Temperature 96.9 F L 97.9 F Temperature Source Temporal Temporal Pulse Rate 146 H 140 H 130 H Respiratory Rate 14 20 H Blood Pressure 112/75 124/71 H Blood Pressure Mean 87 88 Pulse Ox 100 100 99 Oxygen Delivery Method Room Air Room Air Room Air Weight Weight: 68.946 kg Body Mass Index (BMI) 20.0 Physical Exam Const alert, oriented x3 and average body habitus Constitutional Narrative: Patient appears unwell General Appearance: cooperative, well kempt and well developed Orientation / Consciousness: awake, oriented to person, oriented to place and oriented to time HEENT normocephalic, head/scalp atraumatic and hearing grossly normal bilaterally HEENT Narrative: Mucous membranes were dry Eyes PERRL, EOMs intact bilaterally and conjunctivae normal Neck nuchal rigidity, supple, no JVD, thyroid normal and no carotid bruits General: trachea midline Resp normal respiratory effort, no retractions, no use of accessory muscles and clear to auscultation bilaterally Auscultation: Negative for rales, rhonchi or wheezes Cardio regular rate, regular rhythm, S1 normal heart sound, S2 normal heart sound, no murmurs, no rub and no gallops GI normal to inspection, nondistended, normoactive bowel sounds, soft to palpation, non-tender and non-distended Extremity normal to inspection and no clubbing, cyanosis or edema Skin no rashes or lesions noted, no wounds, skin turgor normal and no jaundice General Skin Exam: no breakdown Neuro oriented x3, CN's II-XII intact bilaterally, no focal motor deficits and no s ensory deficits noted Sensorium / Orientation: awake and alert Speech: speech normal Psych affect normal Results Lab / Micro Data Result Diagrams: 01/27/22 16:20 01/27/22 16:20 Labs: Laboratory Results - last 24 hr 01/27/22 16:20: WBC 17.4 H, RBC 6.12, Hgb 18.7 H*, Hct 51.0, MCV 83.3, MCH 30.6, MCHC 36.7 H, RDW Std Deviation 37.3, RDW Coeff of Rabia 12.5, Plt Count 457 H, MPV 9.6, Immature Gran % (Auto) 1.300 H, Neut % (Auto) 83.0 H, Lymph % (Auto) 8.6 L, [place] % (Auto) 6.8, Eos % (Auto) 0.0, Baso % (Auto) 0.3, Absolute Neuts (auto) 14.4 H, Absolute Lymphs (auto) 1.49, Nucleated RBC % 0, Diff Path Review March01/27/22 16:20: Sodium 125 L, Potassium 5.5 H, Chloride 97 L, Carbon Dioxide 6.0 L*, Anion Gap 22 H, BUN 24 H, Creatinine 1.48 H, Estim Creat Clear Calc 76.99, Est GFR (MDRD) Af Amer 77, Est GFR (MDRD) Non-Af 64, BUN/Creatinine Ratio 16.2, Glucose 342 H, Calcium 9.7 01/27/22 17:05: Urine Color Yellow, Urine Clarity Clear, Urine pH 5.0, Ur Specific [place] 1.025, Urine Protein 100 H, Urine Glucose (UA) 1000 H, Urine Ketones 150 A*, Urine Occult Blood 50 H, Urine Nitrite Negative, Urine Bilirubin 1 H, Urine Urobilinogen Normal, Ur Leukocyte Esterase Negative, Urine RBC 0-5 SEEN, Urine WBC 0-5 SEEN, Ur Squamous Epith Cells 0 SEEN, Urine Bacteria 0 SEEN, Hyaline Casts 10-25 SEEN, Fine Granular Casts 5-10 SEEN, Urine Mucus 0 SEEN 01/27/22 17:15: Acetone Level LARGE H 01/27/22 17:39: POC Glucose 376 H Radiology Impression Abdomen/Pelvis CT 01/27/22 17:15 Assessment & Plan Assessment/Plan (1) DKA, type 1: PLAN: 1. Type 1 diabetes mellitus with DKA-patient will be admitted to ICU, he will be placed on insulin drip and given vigorous fluid resuscitation, electrolytes will be monitored #2 generalized abdominal pain secondary to #1-again patient will be given IV fluids as part of his treatment regimen #3 hyperkalemia-this should be corrected with administration of fluids, labs will be monitored #4 acute kidney injury-secondary to #1, patient will be given vigorous IV fluid administration Charges/Coding Visit Charges Inpatient E&M: 26408 Init Hosp L3
[2022-01-27 19:51] LABS: Bedside Glucose 368 mg/dL (74-106)
[2022-01-27 20:56] LABS: Bedside Glucose 353 mg/dL (74-106)
[2022-01-27 20:56] LABS: Bedside Glucose 351 mg/dL (74-106)
[2022-01-27] MEDS: 0.9% Normal Saline 1,000 ML 500 ML IV (21:46)
[2022-01-27 21:59] LABS: Anion Gap 17 (5-15); BUN 21 mg/dL (7-18); BUN/Creat Ratio 17.2 RATIO (10-20); Calcium,Total 8.7 mg/dL (8.5-10.1); Chloride 107 mmol/L (98-107); Creatinine, Serum 1.22 mg/dL (0.70-1.30); EST Glomerular Filtration Rate 80 mL/min (>60); Est Glom Filt Rate - Afr Amer 96 mL/min (>60); Estimated Creatinine Clearance 103.77 ml/min; Glucose 293 mg/dL (74-106); Potassium 4.7 mmol/L (3.5-5.1); Sodium Level 132 mmol/L (136-145)
[2022-01-27 22:00] LABS: Bedside Glucose 231 mg/dL (74-106)
[2022-01-27 23:00] LABS: Bedside Glucose 191 mg/dL (74-106)
[2022-01-27] MEDS: Dext 5%-0.45% NS 1,000 ML 150 ML IV (23:18)
[2022-01-28] VITALS (16 sets, daily range): BP systolic 90–110; BP diastolic 43–77; PULSE 116–135; RESP 14–26; TEMP 36.1–37; O2SAT 98–100
[2022-01-28 00:06] LABS: Bedside Glucose 181 mg/dL (74-106)
[2022-01-28 00:21] LABS: Allen Test Positive; Base Excess -19 mmol/L (-2 to +2); Blood Gas Specimen Type ART; FI02 21; O2 Delivery Device Room Air; PO2 61 mmHG (75-100); SITE R Radial; SO2 87 % (95-99); Total Carbon Dioxide 9 mmol/L; pCO2 18.6 mmHg (35-45); pH 7.24 (7.35-7.45)
[2022-01-28 01:01] LABS: Bedside Glucose 179 mg/dL (74-106)
[2022-01-28 01:51] LABS: Bedside Glucose 191 mg/dL (74-106)
[2022-01-28 02:06] LABS: Anion Gap 12 (5-15); BUN 18 mg/dL (7-18); Calcium,Total 8.7 mg/dL (8.5-10.1); Chloride 111 mmol/L (98-107); Creatinine, Serum 1.06 mg/dL (0.70-1.30); EST Glomerular Filtration Rate 94 mL/min (>60); Est Glom Filt Rate - Afr Amer 113 mL/min (>60); Estimated Creatinine Clearance 119.44 ml/min; Glucose 195 mg/dL (74-106); Sodium Level 135 mmol/L (136-145)
[2022-01-28 03:06] LABS: Bedside Glucose 180 mg/dL (74-106)
[2022-01-28 03:56] LABS: Bedside Glucose 145 mg/dL (74-106)
[2022-01-28] MEDS: Dext 5%-0.45% NS 1,000 ML 150 ML IV (05:01)
[2022-01-28 05:11] LABS: Bedside Glucose 148 mg/dL (74-106)
[2022-01-28 05:56] LABS: Bedside Glucose 164 mg/dL (74-106)
[2022-01-28 06:15] LABS: Anion Gap 7 (5-15); BUN 15 mg/dL (7-18); BUN/Creat Ratio 14.3 RATIO (10-20); Calcium,Total 8.5 mg/dL (8.5-10.1); Chloride 111 mmol/L (98-107); Creatinine, Serum 1.05 mg/dL (0.70-1.30); EST Glomerular Filtration Rate 95 mL/min (>60); Est Glom Filt Rate - Afr Amer 115 mL/min (>60); Estimated Creatinine Clearance 120.57 ml/min; Glucose 165 mg/dL (74-106); Potassium 3.4 mmol/L (3.5-5.1); Sodium Level 134 mmol/L (136-145)
[2022-01-28 07:06] LABS: Bedside Glucose 141 mg/dL (74-106)
[2022-01-28] MEDS: Potassium Chloride Oral Tablet 20 MEQ 40 MEQ PO (08:07)
[2022-01-28] MEDS: Insulin Glargine-YFGN 100 UNIT/ML Pen 38 UNIT SC (08:08)
[2022-01-28 08:16] LABS: Bedside Glucose 107 mg/dL (74-106)
[2022-01-28] MEDS: Insulin Lispro 100 UNIT/ML INSULN.PEN 30 UNIT SC (08:46)
[2022-01-28] MEDS: 0.9% Normal Saline 1,000 ML 999 ML IV (09:05)
--- NOTE | 2022-01-28 10:30 | CASEMGMT ---
VERONA CM Face to Face with patient for initial transition planning/care coordination assessment. RN CM introduced self and role at [facility]. Patient lying in bed, alert and oriented. Patient willing to participate in assessment and is able to answer all questions appropriately. Care providers, pharmacy, and demographics verified. Patient wishes to discharge home, denies need for home health at this time. Patient states he has no further needs or concerns at this time. CM to follow for discharge planning needs that may arise. 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 Patient states he is independent and able to ambulate stairs Transportation: grandmother DME/HHC: Patient states he has new continuous glucose monitor. Patient states he has insulin and supplies at home. Patient tells this RN CM that he has been checking his BS 4-5 times daily. Per chart, patient was a no show for his appt with barge worker on 01/25/22. Patient states he didn't have a ride and that he had to watch his younger brother (11yo) and there was no one else to watch his brother. RN CM asked why he didn't call and update Dr. Galindo's office to reschedule, patient stated he forgot. RN CM encourage to schedule follow-up with Dr. Galindo on Sunday. RN CM educated patient to call office if unable to make appt and if patient continues to be a no call/no show to appts Dr. Galindo may discharge patient from services. Patient voiced understanding. This RN CM told patient that she would follow-up with patient on Sunday to see if he scheduled follow-up appts. Patient voiced understanding. RN CM also informed patient that if he cannot get transportation to appts that he may use [facility] van for transportation to appts. Patient voiced understanding. Disposition Plan: Patient to discharge home with family support and follow-up plans in place. Joana MONTEZ, RN, CM
[2022-01-28 11:16] LABS: Bedside Glucose 57 mg/dL (74-106)
[2022-01-28 11:51] LABS: Bedside Glucose 128 mg/dL (74-106)
--- NOTE | 2022-01-28 12:22 | DCINST_ITS ---
Discharge Instructions Diet Discharge Diet: 2000 Calorie Control Diet Activity Discharge Activity: Return to Normal Activity Dressing / Incision Call your doctor if you observe: - (Interval nausea and vomiting. Uncontrolled blood sugars.) Follow Up Care Test Results: Test results from this visit will be discussed in further detail at your follow-up appointment, if applicable. Discharge Plan Admission Admit Date/Time: 01/27/22 18:44 Primary Reason for Your Visit: DKA Attending Provider: Diogenes Jacome Primary Care Provider: Tori Butler Discharge Orders/Prescriptions Prescriptions: Continued (DME) OneTouch Verio test strips Strip See Rx Instructions .ROUTE .MEDSUPPLY Qty: 200 RF: 6 (DME) pen needle, diabetic [BD Ultra-Fine [place]in Pen Needle] 32 gauge x 5/32 needle See Rx Instructions .ROUTE .MEDSUPPLY Qty: 360 RF: 6 (DME) FreeStyle Niru 14 Day Sensor Kit See Rx Instructions .ROUTE .MEDSUPPLY Qty: 2 RF: 5 insulin lispro 100 unit/mL insulin pen 30 unit SUBCUT TIDCM RF: 0 Lantus Solostar U-100 Insulin 100 unit/mL (3 mL) insulin pen 38 unit SUBCUT QHS RF: 0 Referrals / Follow Up: [facility] [Provider Group] - Within 2 Weeks Tori Butler MD [Primary Care Provider] - Within 2 Weeks Disposition Disposition (needs filled in before D/C Order can be placed): Home, Self Care
--- NOTE | 2022-01-28 12:25 | DS.PCM_ITS ---
Providers Date of Admission: 01/27/22 Primary Care Physician: Dr. Tori Butler MD Reason For Visit: ACUTE DKA Diagnosis Discharge Diagnosis (1) DKA, type 1: Status: Inactive Code(s): E10.10 - Type 1 diabetes mellitus with ketoacidosis without coma Medications at Discharge Home Medications blood sugar diagnostic #200 ea 09/08/21 pen needle, diabetic 32 gauge x 5/32 #360 ea 09/08/21 flash glucose sensor #2 ea 10/11/21 Lantus Solostar U-100 Insulin 38 unit SUBCUT QHS 01/27/22 insulin lispro 30 unit SUBCUT TIDCM 01/27/22 Hospital Course Operations None Procedures None Summary of Care Provided Minutes Spent on Discharge: 35 Hospital Course: This is a 21-year-old male presents with abdominal pain, nausea and vomiting. Patient was found to be in DKA. Patient is a type I diabetic. Patient was put on insulin drip and the anion gap closed x2 and transitioned over to orals. Complicating his history as he had some tachycardia but patient did receive IV fluids that did improve with that. Patient has a history of noncompliance and has been admitted with DKA before. Patient has been referred to endocrinology and has made several appointments but missed others. Patient has taken a rather lackadaisical approach to managing his diabetes despite it being up responded by numerous resources for strict control. Patient may benefit from further counseling because is concerned from this provider that patient simply has not Johan effectively in regards to managing his diabetes is unclear if any of that would even help. Patient improved very well relatively quickly and is stable for discharge today. Physical Exam Const alert HEENT normocephalic and head/scalp atraumatic Resp normal respiratory effort, no retractions, no use of accessory muscles and clear to auscultation bilaterally Cardio regular rate, regular rhythm, S1 normal heart sound and S2 normal heart sound GI normal to inspection, nondistended, normoactive bowel sounds, soft to palpation and non-tender Extremity normal to inspection and full ROM Weight / BMI Weight Weight: 78.9 kg Body Mass Index (BMI) 22.2 ABG / Lab / Microbiology Data Result Diagrams: 01/27/22 16:20 01/28/22 05:40 Laboratory: Laboratory Results - last 24 hr 01/27/22 16:20: WBC 17.4 H, RBC 6.12, Hgb 18.7 H*, Hct 51.0, MCV 83.3, MCH 30.6, MCHC 36.7 H, RDW Std Deviation 37.3, RDW Coeff of Rabia 12.5, Plt Count 457 H, MPV 9.6, Immature Gran % (Auto) 1.300 H, Neut % (Auto) 83.0 H, Lymph % (Auto) 8.6 L, [place] % (Auto) 6.8, Eos % (Auto) 0.0, Baso % (Auto) 0.3, Absolute Neuts (auto) 14.4 H, Absolute Lymphs (auto) 1.49, Nucleated RBC % 0, Diff Path Review March01/27/22 16:20: Sodium 125 L, Potassium 5.5 H, Chloride 97 L, Carbon Dioxide 6.0 L*, Anion Gap 22 H, BUN 24 H, Creatinine 1.48 H, Estim Creat Clear Calc 76.99, Est GFR (MDRD) Af Amer 77, Est GFR (MDRD) Non-Af 64, BUN/Creatinine Ratio 16.2, Glucose 342 H, Calcium 9.7 01/27/22 17:05: Urine Color Yellow, Urine Clarity Clear, Urine pH 5.0, Ur S pecific [place] 1.025, Urine Protein 100 H, Urine Glucose (UA) 1000 H, Urine Ketones 150 A*, Urine Occult Blood 50 H, Urine Nitrite Negative, Urine Bilirubin 1 H, Urine Urobilinogen Normal, Ur Leukocyte Esterase Negative, Urine RBC 0-5 SEEN, Urine WBC 0-5 SEEN, Ur Squamous Epith Cells 0 SEEN, Urine Bacteria 0 SEEN, Hyaline Casts 10-25 SEEN, Fine Granular Casts 5-10 SEEN, Urine Mucus 0 SEEN 01/27/22 17:15: Acetone Level LARGE H 01/27/22 17:39: POC Glucose 376 H 01/27/22 18:56: POC Glucose 368 H 01/27/22 19:47: POC Glucose 351 H 01/27/22 20:50: POC Glucose 353 H 01/27/22 21:39: Sodium 132 L, Potassium 4.7, Chloride 107, Carbon Dioxide 8.0 L* , Anion Gap 17 H, BUN 21 H, Creatinine 1.22, Estim Creat Clear Calc 103.77, Est GFR (MDRD) Af Amer 96, Est GFR (MDRD) Non-Af 80, BUN/Creatinine Ratio 17.2, Glucose 293 H, Calcium 8.7 01/27/22 21:55: POC Glucose 231 H 01/27/22 22:53: POC Glucose 191 H 01/27/22 23:59: POC Glucose 181 H 01/28/22 00:54: POC Glucose 179 H 01/28/22 01:43: POC Glucose 191 H 01/28/22 01:45: Sodium 135 L, Potassium 4.0, Chloride 111 H, Carbon Dioxide 12.0 L, Anion Gap 12, BUN 18, Creatinine 1.06, Estim Creat Clear Calc 119.44, Est GFR (MDRD) Af Amer 113, Est GFR (MDRD) Non-Af 94, BUN/Creatinine Ratio 17.0, Glucose 195 H, Calcium 8.7 01/28/22 02:56: POC Glucose 180 H 01/28/22 03:50: POC Glucose 145 H 01/28/22 04:58: POC Glucose 148 H 01/28/22 05:40: Sodium 134 L, Potassium 3.4 L, Chloride 111 H, Carbon Dioxide 16.0 L, Anion Gap 7, BUN 15, Creatinine 1.05, Estim Creat Clear Calc 120.57, Est GFR (MDRD) Af Amer 115, Est GFR (MDRD) Non-Af 95, BUN/Creatinine Ratio 14.3, Glucose 165 H, Calcium 8.5 01/28/22 05:47: POC Glucose 164 H 01/28/22 06:58: POC Glucose 141 H 01/28/22 08:06: POC Glucose 107 H 01/28/22 11:12: POC Glucose 57 L 01/28/22 11:45: POC Glucose 128 H ABG: ABG 01/28/22 00:15 Specimen Type ART Sample Site R Radial pH 7.24 L Bicarbonate Actual 8.0 L Total CO2 9 Base Excess -19 L O2 Saturation 87 L O2 % 21 ABG pCO2 18.6 L* ABG pO2 61 L Hector Test Positive O2 Delivery Device Room Air Crit Call To/Read Back Yes Blood Gas Notified Whom Radiography Diagnostic Testing: Radiology Impression Abdomen/Pelvis CT 01/27/22 17:15 D/C Instructions Discharge Diet: 2000 Calorie Control Diet Call your doctor if you observe: - (Interval nausea and vomiting. Uncontrolled blood sugars.) Meaningful Use Info Meaningful Use Diagnoses (Choose all that apply): None applicable Discharge Plan Admission Admit Date/Time: 01/27/22 18:44 Primary Reason for Your Visit: DKA Attending Provider: Diogenes Jacome Primary Care Provider: Tori Butler Discharge Orders/Prescriptions Prescriptions: Continued (DME) OneTouch Verio test strips Strip See Rx Instructions .ROUTE .MEDSUPPLY Qty: 200 RF: 6 (DME) pen needle, diabetic [BD Ultra-Fine Lorin Pen Needle] 32 gauge x 5/32 needle See Rx Instructions .ROUTE .MEDSUPPLY Qty: 360 RF: 6 (DME) FreeStyle Niru 14 Day Sensor Kit See Rx Instructions .ROUTE .MEDSUPPLY Qty: 2 RF: 5 insulin lispro 100 unit/mL insulin pen 30 unit SUBCUT TIDCM RF: 0 Lantus Solostar U-100 Insulin 100 unit/mL (3 mL) insulin pen 38 unit SUBCUT QHS RF: 0 Referrals / Follow Up: [facility] [Provider Group] - Within 2 Weeks Tori Butler MD [Primary Care Provider] - Within 2 Weeks Disposition Disposition (needs filled in before D/C Order can be placed): Home, Self Care Charges/Coding Visit Charges Inpatient E&M: 32486 Disch Hosp
[2022-01-30 14:35] LABS: Pathologist Review Reviewed
--- NOTE | 2022-01-30 15:08 | CASEMGMT ---
VERONA FONTANEZ called Dr. Galindo's office and left message for nurse to assist with patient follow-up.
== END 2022-01-28 14:02 | disposition home or self-care (01) | DRG 420 ==
LOC: ED 18:22 → ICU 18:54
PROVIDERS: Admitting Provider Internal Medicine; Emergency Provider Emergency Medicine; PCP Pediatrics
DX: E10.10 Type 1 diabetes mellitus with ketoacidosis without coma (principal); E87.5 Hyperkalemia; Z79.4 Long term (current) use of insulin; J45.909 Unspecified asthma, uncomplicated; K21.9 Gastro-esophageal reflux disease without esophagitis; Z91.19 Patient's noncompliance with other medical treatment and regimen
CPT/HCPCS: 36600; 74177; 80048; 81001; 82009; 82803; 82962; 85025; 93005; 97802; 99285; J7030; Q9967; A4216; J2405; J7799

== ENCOUNTER 2022-03-23 13:15 | Inpatient (IN) | payer MEDICAID, SELFPAY ==
[2022-03-23] VITALS (17 sets, daily range): BP systolic 102–164; BP diastolic 50–143; PULSE 98–132; RESP 24–37; TEMP 29.5–37; O2SAT 90–100; BMI 21.4; BMI 20.8
--- NOTE | 2022-03-23 13:35 | CT_ITS ---
STUDY: CT BRAIN WITHOUT CONTRAST REASON FOR EXAM: Male, 21 years old. alter mental status RADIATION DOSAGE (If Supplied By Facility): CTDIvol = ( 44.99 ) mGy, DLP = ( 846.73 ) mGycm TECHNIQUE: Transaxial CT imaging of the brain was performed without administration of intravenous contrast material. Individualized dose optimization techniques were used for this CT. COMPARISON: No relevant priors. FINDINGS: Normal soft tissue structures. Normal calvarium. Normal size ventricles and extra-axial spaces for the patient''s age. Normal white matter tracts of the cerebral hemispheres. Normal basal ganglia and thalami. Normal brainstem. Normal cerebellum. There is no intracranial hemorrhage. There are no findings of an acute ischemic infarction. Normal visualized paranasal sinuses. CT/Brain/Head without Contrast IMPRESSION: Normal unenhanced CT scan of the brain. Electronically Signed: Willy Callahan MD at 14:23 EDT ,
--- NOTE | 2022-03-23 13:36 | EX.ED.DYSGE1 ---
HPI <BETSY Oscar - Last Filed: 03/23/22 15:27> History of Present Illness Chief Complaint: Syncope Narrative Narrative: 21-year-old male with history of anxiety, diabetes type 1 who has poorly regulated sugar. Patient presents the emergency department with altered mental status, syncopal episode. Per the grandmother, the patient's blood sugar has been rising in the last 48 hours. Patient was not eating and drinking normally, patient was not taking his insulin. Patient then had a syncopal episode today and is here for evaluation. Patient is altered, patient is breathing fast, and is not answering any questions. 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 Ulcer of leg, chronic Uncontrolled type 1 diabetes mellitus Home Medications blood sugar diagnostic #200 ea 09/08/21 [Rx Last Taken Unknown] pen needle, diabetic 32 gauge x #360 ea 09/08/21 [Rx Last Taken Unknown] flash glucose sensor #2 ea 10/11/21 [Rx Last Taken Unknown] Lantus Solostar U-100 Insulin 38 unit SUBCUT QHS 01/27/22 [History Last Taken Unknown] insulin lispro 30 unit SUBCUT TIDCM 01/27/22 [History Last Taken Unknown] Allergy/AdvReac Type Severity Reaction Status Date / Time Milk Containing Products AdvReac Diarrhea Verified 01/27/22 15:42 Family History Father Polysubstance overdose Patient father young secondary to OD. Mother Iron deficiency anemia Other Asthma CVA (cerebral vascular accident) Diabetes Hypertension Thyroid disorder Surgical History History of surgery on extremity Hx of knee surgery Social History housing: other details: Lives with his grandmother, aunt and mother. Smoking Status: Never smoker alcohol intake: never substance use type: does not use ROS <BETSY Oscar - Last Filed: 03/23/22 15:27> ROS ED ROS Narrative Constitutional: Negative for fever, weight loss. Positive for chills, weakness Eyes: Negative for vision loss, vision change, double vision ENT: Negative for any sore throat, ear pain, congestion Cardiovascular: Negative for any chest pain, tightness, palpitations, racing heartbeat Respiratory: Negative for any cough, sputum production, hemoptysis, shortness of breath, shortness of breath on exertion, orthopnea. Positive tachypnea Gastrointestinal: Negative for any abdominal pain, nausea, vomiting, diarrhea, constipation, blood in stool, blood in vomit : Negative for any urinary frequency, incontinence, dysuria, retention, blood in urine Muscle skeletal: Negative for any muscle joint pain, stiffness, myalgias, arthralgias, neck pain, back pain Neurological: Negative for any headache, dizziness, syncope, numbness or tingling Skin: Negative for any rashes, lumps, itching, abrasions, lacerations Psychiatric: Negative for any depression, anxiety, stress, suicidal ideation, homicidal ideation Hematologic: Negative for any easy bruising, excessive bruising, easy bleeding Allergies: Negative for any eczema, hives, rash EXAM <BETSY Oscar - Last Filed: 03/23/22 15:27> Physical Exam Narrative Exam Narrative: Vital signs reviewed. Patient is tachycardic, patient is tachypneic, patient is speaking however I am unable to understand what he is saying. Per the grandmother, the patient does have history of diabetic ketoacidosis, patient has not been taking his insulin as prescribed. Patient's not been eating and drinking normally. HEET: Head normocephalic atraumatic, TMs clear bilaterally. Posterior pharynx is clear, dry mucous membranes. Nares clear bilaterally. Neck: Supple with no lymphadenopathy or tenderness. No signs of meningismus, negative jolt sign. Cardiac: Tachycardic rate no murmurs gallops or rubs, equal peripheral pulses bilaterally. Respiratory: Lungs clear to auscultation bilaterally. No chest tenderness. Tachypneic Abdomen: Soft, nontender, nondistended. No abdominal bruit or pulsatile masses. No hepatosplenomegaly Extremities: No peripheral edema, no signs of gross trauma or deformity. Active full range of motion of all extremities. Neuro: Cranial nerves II through XII intact, no focal neurological deficits. Skin: Clean dry and intact with no rash, purpura, petechiae, vesicles or pustules. Backslash flank: No CVA tenderness, no midline spinal tenderness, no deformity. Psych: Normal mood and affect. No SI, HI or acute psychosis. Const Vital Signs: 03/23/22 13:16 03/23/22 13:20 03/23/22 13:56 Temperature 95.2 F L 95 F L Temperature Source Temporal Axillary Pulse Rate 103 H 102 H Respiratory Rate 27 H 30 H Respiratory Pattern Tachypnea Blood Pressure 164/143 H 122/53 H Blood Pressure Mean 150 76 Pulse Ox 93 98 Oxygen Delivery Method Room Air Room Air 03/23/22 14:22 03/23/22 14:41 Temperature 95.3 F L Temperature Source Temporal Pulse Rate 98 110 H Respiratory Rate 30 H 28 H Respiratory Pattern Blood Pressure 127/78 H 118/75 Blood Pressure Mean 94 89 Pulse Ox 100 100 Oxygen Delivery Method Room Air Room Air Positive cachectic and unkempt General Appearance ED: unkempt and cachectic Nutritional Appearance: cachectic Psych Appearance: unkempt <Francisco J Meeks MD - Last Filed: 03/23/22 22:05> Physical Exam Const Vital Signs: 03/23/22 13:16 03/23/22 13:20 03/23/22 13:56 Temperature 95.2 F L 95 F L Temperature Source Temporal Axillary Pulse Rate 103 H 102 H Respiratory Rate 27 H 30 H Respiratory Pattern Tachypnea Blood Pressure 164/143 H 122/53 H Blood Pressure Mean 150 76 Pulse Ox 93 98 Oxygen Delivery Method Room Air Room Air 03/23/22 14:22 03/23/22 14:41 Temperature 95.3 F L Temperature Source Temporal Pulse Rate 98 110 H Respiratory Rate 30 H 28 H Respiratory Pattern Blood Pressure 127/78 H 118/75 Blood Pressure Mean 94 89 Pulse Ox 100 100 Oxygen Delivery Method Room Air Room Air MDM <BETSY Oscar - Last Filed: 03/23/22 15:27> [facility] MDM Narrative Medical decision making narrative: Patient arrives with altered mental status, history of collapse, mild distress secondary to elevated blood sugar. Patient did receive a full work-up for diabetic ketoacidosis. Patient CBC had multiple abnormalities with a white blood count of 31,000, patient's chemistry showed a sodium of 126 which is secondary to his hyperglycemia, patient's potassium is unremarkable. Patient's venous blood gas shows diabetic ketoacidosis so patient was given bicarb. Patient was given 3 L of normal saline as well as an IV insulin drip. Patient's acetone level was large, patient's CT of the head was unremarkable, patient's chest x-ray showed no acute process. I do believe that the patient's problem is stemming from his elevated blood glucose and the patient will be diagnosed with diabetic ketoacidosis. Patient does have a history of this, patient sometimes does not take his insulin. He will be admitted to the intensive care unit. Patient remained stable for admission. Lab Data Labs: Laboratory Results - last 24 hr 03/23/22 03/23/22 03/23/22 13:20 13:20 13:20 WBC 31.1 H* RBC 6.03 Hgb 17.6 H Hct 52.0 MCV 86.2 MCH 29.2 MCHC 33.8 RDW Std Deviation 39.0 RDW Coeff of Rabia 12.6 Plt Count 720 H MPV 10.3 Immature Gran % (Auto) 4.200 H Neut % (Auto) 66.6 Lymph % (Auto) 18.2 L [place] % (Auto) 10.2 H Eos % (Auto) 0.2 Baso % (Auto) 0.6 Absolute Neuts (auto) 20.7 H Absolute Lymphs (auto) 5.66 H Nucleated RBC % 0 Diff Path Review May foll Sodium 126 L Potassium 5.1 Chloride 93 L Carbon Dioxide 6.0 L* Anion Gap 27 H BUN 26 H Creatinine 1.65 H Estim Creat Clear Calc 71.72 Est GFR (MDRD) Af Amer 68 Est GFR (MDRD) Non-Af 56 L BUN/Creatinine Ratio 15.8 Glucose 786 H* Lactic Acid 2.9 H* Calcium 9.4 Total Bilirubin 1.00 AST 13 L ALT 26 Alkaline Phosphatase 165 H Total Protein 8.4 H Albumin 4.5 Globulin 3.9 Albumin/Globulin Ratio 1.2 Lipase 24 L Urine Color Urine Clarity Urine pH Ur Specific [place] Urine Protein Urine Glucose (UA) Urine Ketones Urine Occult Blood Urine Nitrite Urine Bilirubin Urine Urobilinogen Ur Leukocyte Esterase Urine RBC Urine WBC Ur Squamous Epith Cells Urine Bacteria Urine Mucus Urine Opiates Screen Urine Methadone Screen Ur Barbiturates Screen Ur Phencyclidine Scrn Ur Amphetamines Screen MDMA (Ecstasy) Screen U Benzodiazepines Scrn Urine Cocaine Screen U Cannabinoids Screen Ur Drug Screen Comment Acetone Level 03/23/22 03/23/22 03/23/22 13:20 13:48 13:48 WBC RBC Hgb Hct MCV MCH MCHC RDW Std Deviation RDW Coeff of Rabia Plt Count MPV Immature Gran % (Auto) Neut % (Auto) Lymph % (Auto) [place] % (Auto) Eos % (Auto) Baso % (Auto) Absolute Neuts (auto) Absolute Lymphs (auto) Nucleated RBC % Diff Path Review Sodium Potassium Chloride Carbon Dioxide Anion Gap BUN Creatinine Estim Creat Clear Calc Est GFR (MDRD) Af Amer Est GFR (MDRD) Non-Af BUN/Creatinine Ratio Glucose Lactic Acid Calcium Total Bilirubin AST ALT Alkaline Phosphatase Total Protein Albumin Globulin Albumin/Globulin Ratio Lipase Urine Color Straw Urine Clarity Sl. Cloudy Urine pH 5.0 Ur Specific [place] 1.020 Urine Protein 100 H Urine Glucose (UA) 1000 H Urine Ketones 150 A* Urine Occult Blood 25 H Urine Nitrite Negative Urine Bilirubin Negative Urine Urobilinogen Normal Ur Leukocyte Esterase Negative Urine RBC 0 SEEN Urine WBC 0 SEEN Ur Squamous Epith Cells 0-5 SEEN Urine Bacteria 0 SEEN Urine Mucus 0 SEEN Urine Opiates Screen NEGATIVE Urine Methadone Screen NEGATIVE Ur Barbiturates Screen NEGATIVE Ur Phencyclidine Scrn NEGATIVE Ur Amphetamines Screen NEGATIVE MDMA (Ecstasy) Screen NEGATIVE U Benzodiazepines Scrn NEGATIVE Urine Cocaine Screen NEGATIVE U Cannabinoids Screen NEGATIVE Ur Drug Screen Comment Acetone Level LARGE H ABG Data ABG results: ABG 03/23/22 14:07 Specimen Type MARILYNN VBG pH 6.71 L* VBG pO2 65 H VBG Total CO2 < 5 L VBG O2 Sat (Calc) 63 VBG Base Excess < -30 L POC Mix VBG pCO2 Pt Tmp 23.0 L O2 Delivery Device Room Air Crit Call To/Read Back Yes Radiography Diagnostic Testing: Clinical Impression(s) from Imaging Studies Brain CT 03/23/22 13:35 IMPRESSION: Normal unenhanced CT scan of the brain. Electronically Signed: Willy Callahan MD at 14:23 EDT , Chest X-Ray 03/23/22 13:58 IMPRESSION: Normal x-ray examination of the chest. Electronically Signed: Willy Callahan MD at 14:13 EDT , EKG Sinus tachycardia: Comments: Sinus tachycardia rate of 103 bpm, [place] interval 152 ms, QRS duration 98 ms, no acute ST elevation, no acute infarct noted <Francisco J Meeks MD - Last Filed: 03/23/22 22:05> [facility] MDM Narrative Medical decision making narrative: I have personally performed a face to face assessment of the patient and have reviewed the NGUYEN Note. I performed a substantive portion of the visit including all aspects of the following. My valles findings include: History is rapid breathing, nausea and vomiting, mental status change with history of DKA Exam is [afebrile. Vital signs noted. Kussamal breathing. Lungs clear to auscultation bilaterally. Abdomen soft and nontender. Decreased mental status. ] Medical Decision Making [Check labs. IV fluids. Insulin drip. Bicarbonate. Discussed with Dr. Ferrell with ICU. Discussed with hospitalist. Admit to critical care. ] Other additions or changes: [None] Lab Data Attestation: I reviewed the patient's lab results. Labs: Laboratory Results - last 24 hr 03/23/22 03/23/22 03/23/22 13:20 13:20 13:20 WBC 31.1 H* RBC 6.03 Hgb 17.6 H Hct 52.0 MCV 86.2 MCH 29.2 MCHC 33.8 RDW Std Deviation 39.0 RDW Coeff of Rabia 12.6 Plt Count 720 H MPV 10.3 Immature Gran % (Auto) 4.200 H Neut % (Auto) 66.6 Lymph % (Auto) 18.2 L [place] % (Auto) 10.2 H Eos % (Auto) 0.2 Baso % (Auto) 0.6 Absolute Neuts (auto) 20.7 H Absolute Lymphs (auto) 5.66 H Nucleated RBC % 0 Diff Path Review May foll Sodium 126 L Potassium 5.1 Chloride 93 L Carbon Dioxide 6.0 L* Anion Gap 27 H BUN 26 H Creatinine 1.65 H Estim Creat Clear Calc 71.72 Est GFR (MDRD) Af Amer 68 Est GFR (MDRD) Non-Af 56 L BUN/Creatinine Ratio 15.8 Glucose 786 H* Lactic Acid 2.9 H* Calcium 9.4 Total Bilirubin 1.00 AST 13 L ALT 26 Alkaline Phosphatase 165 H Total Protein 8.4 H Albumin 4.5 Globulin 3.9 Albumin/Globulin Ratio 1.2 Lipase 24 L Urine Color Urine Clarity Urine pH Ur Specific [place] Urine Protein Urine Glucose (UA) Urine Ketones Urine Occult Blood Urine Nitrite Urine Bilirubin Urine Urobilinogen Ur Leukocyte Esterase Urine RBC Urine WBC Ur Squamous Epith Cells Urine Bacteria Urine Mucus Urine Opiates Screen Urine Methadone Screen Ur Barbiturates Screen Ur Phencyclidine Scrn Ur Amphetamines Screen MDMA (Ecstasy) Screen U Benzodiazepines Scrn Urine Cocaine Screen U Cannabinoids Screen Ur Drug Screen Comment Acetone Level 03/23/22 03/23/22 03/23/22 13:20 13:48 13:48 WBC RBC Hgb Hct MCV MCH MCHC RDW Std Deviation RDW Coeff of Rabia Plt Count MPV Immature Gran % (Auto) Neut % (Auto) Lymph % (Auto) [place] % (Auto) Eos % (Auto) Baso % (Auto) Absolute Neuts (auto) Absolute Lymphs (auto) Nucleated RBC % Diff Path Review Sodium Potassium Chloride Carbon Dioxide Anion Gap BUN Creatinine Estim Creat Clear Calc Est GFR (MDRD) Af Amer Est GFR (MDRD) Non-Af BUN/Creatinine Ratio Glucose Lactic Acid Calcium Total Bilirubin AST ALT Alkaline Phosphatase Total Protein Albumin Globulin Albumin/Globulin Ratio Lipase Urine Color Straw Urine Clarity Sl. Cloudy Urine pH 5.0 Ur Specific [place] 1.020 Urine Protein 100 H Urine Glucose (UA) 1000 H Urine Ketones 150 A* Urine Occult Blood 25 H Urine Nitrite Negative Urine Bilirubin Negative Urine Urobilinogen Normal Ur Leukocyte Esterase Negative Urine RBC 0 SEEN Urine WBC 0 SEEN Ur Squamous Epith Cells 0-5 SEEN Urine Bacteria 0 SEEN Urine Mucus 0 SEEN Urine Opiates Screen NEGATIVE Urine Methadone Screen NEGATIVE Ur Barbiturates Screen NEGATIVE Ur Phencyclidine Scrn NEGATIVE Ur Amphetamines Screen NEGATIVE MDMA (Ecstasy) Screen NEGATIVE U Benzodiazepines Scrn NEGATIVE Urine Cocaine Screen NEGATIVE U Cannabinoids Screen NEGATIVE Ur Drug Screen Comment Acetone Level LARGE H ABG Data ABG results: ABG 03/23/22 14:07 Specimen Type MARILYNN VBG pH 6.71 L* VBG pO2 65 H VBG Total CO2 < 5 L VBG O2 Sat (Calc) 63 VBG Base Excess < -30 L POC Mix VBG pCO2 Pt Tmp 23.0 L O2 Delivery Device Room Air Crit Call To/Read Back Yes Radiography Diagnostic Testing: Clinical Impression(s) from Imaging Studies Brain CT 03/23/22 13:35 IMPRESSION: Normal unenhanced CT scan of the brain. Electronically Signed: Willy Callahan MD at 14:23 EDT , Chest X-Ray 03/23/22 13:58 IMPRESSION: Normal x-ray examination of the chest. 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
--- NOTE | 2022-03-23 13:37 | EKG12_ITS ---
Test Reason : Blood Pressure : / mmHG Vent. Rate : 103 BPM Atrial Rate : 103 BPM P-R Int : 152 ms QRS Dur : 098 ms QT Int : 372 ms P-R-T Axes : 071 083 100 degrees QTc Int : 487 ms Sinus tachycardia Otherwise normal ECG Confirmed by KEYANA CASTILLO, SEBASTIÁN ([id number]), publishing editor AYESHA VALLE ([id number]) on 03/27/2022 1:24:43 PM Referred By: MARIA G Confirmed By:SEBASTIÁN RIDLEY MD
[2022-03-23 13:48] LABS: Absolute Lymphocyte Count 5.66 X10^3/uL (0.83-4.51); Absolute Neutrophil Count 20.7 X10^3/uL (2.0-7.7); Basophil% 0.6 % (0-1); Eosinophil# 0.07 X10^3/uL; Eosinophils% 0.2 % (0-5); Hemoglobin 17.6 g/dL (13.0-16.5); Lymphocyte # 5.66 X10^3/ul (0.83-4.51); Lymphocyte % 18.2 % (19-41); Mean Corp Hgb Conc 33.8 g/dL (32-36); Mean Corpuscular Hgb 29.2 pg (27.0-32.0); Mean Corpuscular Volume 86.2 fL (80-94); Mean Platelet Vol. 10.3 fl (6.2-12.0); Monocyte# 3.18 X10^3/uL; Monocyte% 10.2 % (0-10); NRBC Flagged by Analyzer 0 % (0-5); Neutrophil # 20.67 X10^3/uL (2.7-7.7); Neutrophil % 66.6 % (47-70); POSITIVE COUNT YES; POSITIVE DIFFERENTIAL YES; POSITIVE MORPHOLOGY YES; Platelet Count 720 K/mm3 (150-450); RBC Distribution Width CV 12.6 % (11.6-14.6); Red Blood Count 6.03 M/mm3 (4.6-6.2); White Blood Count 31.1 K/mm3 (4.4-11.0)
[2022-03-23 13:51] LABS: Differential Indicated SCAN CRITERIA MET
[2022-03-23 13:53] LABS: Bacteria 0 SEEN /hpf (None Seen); Mucous, Urine 0 SEEN /hpf (<or=2+); Red Blood Cells-Urine 0 SEEN /hpf (0-5); White Blood Cells 0 SEEN /hpf (0-5)
[2022-03-23] MEDS: 0.9% Normal Saline 1,000 ML 1000 ML IV (13:54)
[2022-03-23 13:58] LABS: Color, Urine Straw (Yellow); Glucose, Dipstick 1000 mg/dl (Normal); Leukocyte Esterase-Dipstick Negative /ul (Negative); Nitrite-Dipstick Negative (Negative); Occult Blood-Urine 25 /ul (Negative); Protein-Dipstick 100 mg/dl (Negative); Urine Bilirubin Dipstick Negative (Negative); Urine Clarity Sl. Cloudy (Clear); Urine Urobilinogen Normal (Normal)
--- NOTE | 2022-03-23 13:58 | RAD_ITS ---
STUDY: X-RAY CHEST REASON FOR EXAM: Male, 21 years old. Cough TECHNIQUE: Single AP portable view of the chest. COMPARISON: Comparison is made with prior study 11/18/2021. FINDINGS: The lungs are clear and expanded. There is no demonstrated pleural abnormality. Normal size heart. Normal mediastinum and rudi. Normal visualized pulmonary arteries. Normal visualized aortic arch and descending thoracic aorta. Normal visualized thoracic spine. Normal visualized ribs, clavicles, and shoulders. There is no demonstrated abnormality of the visualized soft tissue structures of the upper abdomen. RAD/Chest 1 View (Portable) IMPRESSION: Normal x-ray examination of the chest. Electronically Signed: Willy Callahan MD at 14:13 EDT ,
[2022-03-23 14:04] LABS: Ketone-Dipstick 150 mg/dl (Negative)
[2022-03-23 14:08] LABS: Amphetamine Urine VISTA NEGATIVE (<1000 ng/mL); Barbiturate Urine VISTA NEGATIVE (< 200 ng/mL); Benzodiazepine Urine VISTA NEGATIVE (< 200 ng/mL); Cocaine Urine VISTA NEGATIVE (< 300 ng/mL); Ecstacy Urine VISTA NEGATIVE (< 500 ng/mL); Methadone Urine VISTA NEGATIVE (< 300 ng/mL); PCP Urine VISTA NEGATIVE (< 25 ng/mL); Squamous Epithelial Cells - UA 0-5 SEEN /hpf (0-5); THC Urine VISTA NEGATIVE (< 50 ng/mL); Vista UDS pH Range 5
--- NOTE | 2022-03-23 14:12 | NURSING ---
results called from lab. lactate 2.9, co2 6, glucose 786 aware
[2022-03-23 14:13] LABS: ALB/GLOB Ratio 1.2 RATIO (0.9-2.4); AST(SGOT) 13 U/L (15-37); Alanine Aminotransfer ALT/SGPT 26 U/L (16-61); Albumin, Serum 4.5 g/dL (3.2-5.0); Alkaline Phosphatase 165 U/L (45-117); Anion Gap 27 (5-15); BUN 26 mg/dL (7-18); BUN/Creat Ratio 15.8 RATIO (10-20); Calcium,Total 9.4 mg/dL (8.5-10.1); Chloride 93 mmol/L (98-107); Creatinine, Serum 1.65 mg/dL (0.70-1.30); EST Glomerular Filtration Rate 56 mL/min (>60); Est Glom Filt Rate - Afr Amer 68 mL/min (>60); Estimated Creatinine Clearance 71.72 ml/min; Globulin 3.9 g/dL (2.2-4.2); Glucose 786 mg/dL (74-106); Lactic Acid 2.9 mmol/L (0.4-1.9); Lipase 24 U/L (73-393); Potassium 5.1 mmol/L (3.5-5.1); Protein, Total 8.4 g/dL (6.4-8.2); Sodium Level 126 mmol/L (136-145)
--- NOTE | 2022-03-23 14:14 | CPS ---
critical values on VBG Dr. dennis notified
[2022-03-23] MEDS: Sodium Bicarbonate 8.4% 50 ML Syringe 50 MEQ IV (14:34)
[2022-03-23 14:40] LABS: Blood Gas Specimen Type VEN; O2 Delivery Device Room Air; VBG PO2 65 mmHg (25-40); VBG SO2 63 % (50-70); VBG TCO2 < 5 mmol/L (23-33); VBG pH 6.71 (7.32-7.42)
--- NOTE | 2022-03-23 14:50 | NURSING ---
ICU DKA TERELETSKY
--- NOTE | 2022-03-23 15:20 | NURSING ---
ICU 2
--- NOTE | 2022-03-23 16:13 | PCM.HP.STD ---
HPI - General General Date of Admission: 03/23/22 Date of Service: 03/23/22 Chief Complaint: Altered mental status, elevated blood sugar HPI Narrative SHIRA STEPHENSON, is a 21 M who presents to the emergency room at [facility] after being brought in by EMS after he was found unresponsive on his bathroom floor at home. According to the patient's mother, the patient's blood sugars have been running very high over the last several days and the patient has not been eating anything for the last 4 to 5 days. Patient has had a long history of uncontrolled type 1 diabetes and is noncompliant with his insulin regimen according to his mother. Labs obtained in the emergency room included a CBC which was abnormal for a white blood cell count of 31.1, hemoglobin was 17.6, patient had a venous ABG performed which showed a pH was 6.71, chemistry profile was remarkable for sodium of 126, chloride was 93, bicarb was 6, creatinine was 1.65, BUN was 26, and glucose was 786. Patient's lactic acid was elevated at 2.9. Urinalysis was positive for urine ketones at 150, urine glucose was thousand, there were no RBCs or WBCs seen per high-powered field, there is no bacteria seen. Patient was given IV fluids by the emergency room physician, he was started on insulin drip and he will be admitted to ICU for recurrent DKA. [facility] Medical History (Updated 03/23/22 @ 15:27 by BETSY Oscar) Asthma Asthma Diabetes Diabetes Diabetes mellitus type 1 Diabetes mellitus with ketoacidosis Diabetic ketoacidosis associated with type 1 diabetes mellitus DKA, type 1 femur surgery GERD (gastroesophageal reflux disease) History of type 1 diabetes mellitus Nausea and vomiting Non-smoker Noncompliance Noncompliance with diabetes treatment Nonhealing surgical wound Psychosocial problem Sinus tachycardia seen on secured entrance monitor Ulcer of leg, chronic Uncontrolled type 1 diabetes mellitus Home Medications blood sugar diagnostic #200 ea 09/08/21 [Rx Last Taken Unknown] pen needle, diabetic 32 gauge x #360 ea 09/08/21 [Rx Last Taken Unknown] flash glucose sensor #2 ea 10/11/21 [Rx Last Taken Unknown] Lantus Solostar U-100 Insulin 38 unit SUBCUT QHS 01/27/22 [History Last Taken Unknown] insulin lispro 30 unit SUBCUT TIDCM 01/27/22 [History Last Taken Unknown] Allergy/AdvReac Type Severity Reaction Status Date / Time Milk Containing Products AdvReac Diarrhea Verified 01/27/22 15:42 Family History Father Polysubstance overdose Patient father young secondary to OD. Mother Iron deficiency anemia Other Asthma CVA (cerebral vascular accident) Diabetes Hypertension Thyroid disorder Surgical History History of surgery on extremity Hx of knee surgery Social History housing: other details: Lives with his grandmother, aunt and mother. Smoking Status: Never smoker alcohol intake: never substance use type: does not use ROS ROS Narrative Review of systems was unobtainable due to patient's altered mental status and somnolence. Vital Signs Vital Signs Vital Signs: 03/23/22 13:16 03/23/22 13:20 03/23/22 13:56 Temperature 95.2 F L 95 F L Temperature Source Temporal Axillary Pulse Rate 103 H 102 H Respiratory Rate 27 H 30 H Respiratory Pattern Tachypnea Blood Pressure 164/143 H 122/53 H Blood Pressure Mean 150 76 Pulse Ox 93 98 Oxygen Delivery Method Room Air Room Air 03/23/22 14:22 03/23/22 14:41 03/23/22 15:24 Temperature 95.3 F L Temperature Source Temporal Pulse Rate 98 110 H 106 H Respiratory Rate 30 H 28 H 29 H Respiratory Pattern Blood Pressure 127/78 H 118/75 144/98 H Blood Pressure Mean 94 89 113 Pulse Ox 100 100 98 Oxygen Delivery Method Room Air Room Air Room Air Weight Weight: 71.6 kg Body Mass Index (BMI) 21.4 Physical Exam Const Constitutional Narrative: Patient is somnolent, he responds to painful stimuli but not verbal stimuli General Appearance: well kempt and well developed Orientation / Consciousness: awake, oriented to person, oriented to place and oriented to time HEENT normocephalic and head/scalp atraumatic HEENT Narrative: Mucous membranes are dry Eyes PERRL and conjunctivae normal Neck nuchal rigidity, supple, no JVD and thyroid normal General: trachea midline Resp normal respiratory effort, no retractions, no use of accessory muscles and clear to auscultation bilaterally Resp Narrative: Patient has rapid respirations Auscultation: Negative for rales, rhonchi or wheezes Cardio regular rate, regular rhythm, S1 normal heart sound, S2 normal heart sound, no murmurs, no rub and no gallops GI normal to inspection, nondistended, normoactive bowel sounds, soft to palpation, non-tender and non-distended Extremity no clubbing, cyanosis or edema Skin Skin Narrative: Skin turgor is poor General Skin Exam: no breakdown Neuro CN's II-XII intact bilaterally and no sensory deficits noted Neuro Narrative: Patient is somnolent, he does respond to painful stimuli, he does not follow verbal commands Psych Psych Narrative: Patient is somnolent, he does not follow verbal commands, he responds to painful stimuli Results Lab / Micro Data Result Diagrams: 03/23/22 13:20 03/23/22 13:20 Labs: Laboratory Results - last 24 hr 03/23/22 13:20: WBC 31.1 H*, RBC 6.03, Hgb 17.6 H, Hct 52.0, MCV 86.2, MCH 29.2, MCHC 33.8, RDW Std Deviation 39.0, RDW Coeff of Rabia 12.6, Plt Count 720 H, MPV 10.3, Immature Gran % (Auto) 4.200 H, Neut % (Auto) 66.6, Lymph % (Auto) 18.2 L, Carson % (Auto) 10.2 H, Eos % (Auto) 0.2, Baso % (Auto) 0.6, Absolute Neuts (auto) 20.7 H, Absolute Lymphs (auto) 5.66 H, Nucleated RBC % 0, Diff Path Review March03/23/22 13:20: Sodium 126 L, Potassium 5.1, Chloride 93 L, Carbon Dioxide 6.0 L*, Anion Gap 27 H, BUN 26 H, Creatinine 1.65 H, Estim Creat Clear Calc 71.72, Est GFR (MDRD) Af Amer 68, Est GFR (MDRD) Non-Af 56 L, BUN/Creatinine Ratio 15.8, Glucose 786 H*, Calcium 9.4, Total Bilirubin 1.00, AST 13 L, ALT 26, Alkaline Phosphatase 165 H, Total Protein 8.4 H, Albumin 4.5, Globulin 3.9, Albumin/Globulin Ratio 1.2, Lipase 24 L 03/23/22 13:20: Lactic Acid 2.9 H* 03/23/22 13:20: Acetone Level LARGE H 03/23/22 13:48: Urine Opiates Screen NEGATIVE, Urine Methadone Screen NEGATIVE, Ur Barbiturates Screen NEGATIVE, Ur Phencyclidine Scrn NEGATIVE, Ur Amphetamines Screen NEGATIVE, MDMA (Ecstasy) Screen NEGATIVE, U Benzodiazepines Scrn NEGATIVE, Urine Cocaine Screen NEGATIVE, U Cannabinoids Screen NEGATIVE, Ur Drug Screen Comment 03/23/22 13:48: Urine Color Straw, Urine Clarity Sl. Cloudy, Urine pH 5.0, Ur Specific [place] 1.020, Urine Protein 100 H, Urine Glucose (UA) 1000 H, Urine Ketones 150 A*, Urine Occult Blood 25 H, Urine Nitrite Negative, Urine Bilirubin Negative, Urine Urobilinogen Normal, Ur Leukocyte Esterase Negative, Urine RBC 0 SEEN, Urine WBC 0 SEEN, Ur Squamous Epith Cells 0-5 SEEN, Urine Bacteria 0 SEEN, Urine Mucus 0 SEEN ABG Data ABG results: ABG 03/23/22 14:07 Specimen Type MARILYNN VBG pH 6.71 L* VBG pO2 65 H VBG Total CO2 < 5 L VBG O2 Sat (Calc) 63 VBG Base Excess < -30 L POC Mix VBG pCO2 Pt Tmp 23.0 L O2 Delivery Device Room Air Crit Call To/Read Back Yes Radiology Impression Brain CT 03/23/22 13:35 IMPRESSION: Normal unenhanced CT scan of the brain. Electronically Signed: Willy Callahan MD at 14:23 EDT , Chest X-Ray 03/23/22 13:58 IMPRESSION: Normal x-ray examination of the chest. Electronically Signed: Willy Callahan MD at 14:13 EDT , Assessment & Plan Assessment/Plan (1) Diabetic ketoacidosis: PLAN: 1. Recurrent DKA without coma-patient will be admitted to ICU, he will be given vigorous fluid resuscitation, he will be placed on an insulin drip, he will be seen in consultation by pulmonary medicine. #2 type 1 diabetes with noncompliance-this appears to be an ongoing problem with the patient, this will complicate care, recovery, and prognosis. #3 metabolic encephalopathy secondary to DKA-patient will be monitored, this should improve with administration of fluids and his insulin drip. #4 noncompliance with medical regimen-according to the patient's mother, patient is noncompliant with his type 1 diabetes treatment, this overall portends a poor prognosis. Patient's work-up for an active infection has been negative so far, he will be monitored for any signs of infection. Patient will need a PICC line inserted due to poor venous access, when the patient has been hospitalized before, he has had to have a PICC line inserted to maintain access to veins. Charges/Coding Visit Charges Inpatient E&M: 97013 Init Hosp L3
[2022-03-23] MEDS: 0.9% Normal Saline 1,000 ML 999 ML IV ×2 (16:22→17:27)
[2022-03-23 16:56] LABS: Bedside Glucose > 500 mg/dL (74-106)
[2022-03-23 17:02] LABS: Anion Gap 27 (5-15); BUN 29 mg/dL (7-18); BUN/Creat Ratio 19.9 RATIO (10-20); Calcium,Total 8.8 mg/dL (8.5-10.1); Chloride 101 mmol/L (98-107); Creatinine, Serum 1.46 mg/dL (0.70-1.30); EST Glomerular Filtration Rate 65 mL/min (>60); Est Glom Filt Rate - Afr Amer 78 mL/min (>60); Estimated Creatinine Clearance 81.05 ml/min; Glucose 710 mg/dL (74-106); Potassium 5.1 mmol/L (3.5-5.1); Sodium Level 132 mmol/L (136-145)
[2022-03-23 17:42] LABS: Reflex Lactate? Y
[2022-03-23 18:11] LABS: Bedside Glucose 454 mg/dL (74-106)
[2022-03-23] MEDS: Lactated Ringers 1,000 ML 999 ML IV ×3 (18:37→20:51)
--- NOTE | 2022-03-23 19:00 | NURSING ---
Continuing Humalog drip from ED. Continuing to chart under discontinued ED order instead of new order/bag.
[2022-03-23 20:55] LABS: Lactic Acid 0.8 mmol/L (0.4-1.9)
[2022-03-23 20:57] LABS: Anion Gap 21 (5-15); BUN 26 mg/dL (7-18); BUN/Creat Ratio 25.2 RATIO (10-20); Calcium,Total 8.4 mg/dL (8.5-10.1); Chloride 114 mmol/L (98-107); Creatinine, Serum 1.03 mg/dL (0.70-1.30); EST Glomerular Filtration Rate 97 mL/min (>60); Est Glom Filt Rate - Afr Amer 117 mL/min (>60); Glucose 331 mg/dL (74-106); Potassium 4.6 mmol/L (3.5-5.1); Sodium Level 140 mmol/L (136-145)
[2022-03-23 21:16] LABS: Bedside Glucose 287 mg/dL (74-106)
[2022-03-23 21:16] LABS: Bedside Glucose 324 mg/dL (74-106)
[2022-03-23 21:16] LABS: Bedside Glucose 343 mg/dL (74-106)
[2022-03-23] MEDS: 0.9% Normal Saline 1,000 ML 500 ML IV (21:52)
[2022-03-24] VITALS (21 sets, daily range): BP systolic 96–118; BP diastolic 40–71; PULSE 114–141; RESP 16–32; TEMP 36.4–37.9; O2SAT 97–100
[2022-03-24 01:00] LABS: Bedside Glucose 266 mg/dL (74-106)
[2022-03-24 01:00] LABS: Bedside Glucose 219 mg/dL (74-106)
[2022-03-24 01:00] LABS: Bedside Glucose 255 mg/dL (74-106)
[2022-03-24 01:07] LABS: Anion Gap 20 (5-15); BUN 20 mg/dL (7-18); BUN/Creat Ratio 21.1 RATIO (10-20); Calcium,Total 8.3 mg/dL (8.5-10.1); Chloride 115 mmol/L (98-107); Creatinine, Serum 0.95 mg/dL (0.70-1.30); EST Glomerular Filtration Rate 107 mL/min (>60); Est Glom Filt Rate - Afr Amer 129 mL/min (>60); Estimated Creatinine Clearance 121.44 ml/min; Glucose 261 mg/dL (74-106); Potassium 4.2 mmol/L (3.5-5.1); Sodium Level 141 mmol/L (136-145)
[2022-03-24] MEDS: Sodium Bicarbonate 8.4% 50 ML Syringe 50 MEQ IV (02:26)
[2022-03-24 03:36] LABS: Bedside Glucose 245 mg/dL (74-106)
[2022-03-24 03:36] LABS: Bedside Glucose 212 mg/dL (74-106)
[2022-03-24 03:36] LABS: Bedside Glucose 195 mg/dL (74-106)
[2022-03-24 03:45] LABS: Allen Test Positive; Base Excess -15 mmol/L (-2 to +2); Bicarbonate 10.8 mmol/L (22-26); Blood Gas Specimen Type ART; O2 Delivery Device Room Air; PO2 106 mmHG (75-100); SITE L Radial; SO2 98 % (95-99); Total Carbon Dioxide 11 mmol/L; pH 7.34 (7.35-7.45)
[2022-03-24 04:38] LABS: Absolute Neutrophil Count 8.2 X10^3/uL (2.0-7.7); Basophil# 0.01 X10^3/uL; Basophil% 0.1 % (0-1); Hematocrit 36.7 % (40-54); Hemoglobin 13.7 g/dL (13.0-16.5); Lymphocyte % 5.1 % (19-41); Mean Corp Hgb Conc 37.3 g/dL (32-36); Mean Corpuscular Hgb 29.6 pg (27.0-32.0); Mean Corpuscular Volume 79.3 fL (80-94); Mean Platelet Vol. 9.5 fl (6.2-12.0); Monocyte# 1.07 X10^3/uL; Monocyte% 10.8 % (0-10); NRBC Flagged by Analyzer 0 % (0-5); Neutrophil # 8.16 X10^3/uL (2.7-7.7); Neutrophil % 82.5 % (47-70); POSITIVE DIFFERENTIAL YES; Platelet Count 329 K/mm3 (150-450); RBC Distribution Width CV 12.7 % (11.6-14.6); Red Blood Count 4.63 M/mm3 (4.6-6.2); White Blood Count 9.9 K/mm3 (4.4-11.0)
[2022-03-24 04:41] LABS: Differential Indicated SCAN CRITERIA MET
[2022-03-24 04:50] LABS: Anion Gap 13 (5-15); BUN 19 mg/dL (7-18); BUN/Creat Ratio 19.3 RATIO (10-20); Calcium,Total 8.6 mg/dL (8.5-10.1); Chloride 117 mmol/L (98-107); Creatinine, Serum 0.98 mg/dL (0.70-1.30); EST Glomerular Filtration Rate 102 mL/min (>60); Est Glom Filt Rate - Afr Amer 123 mL/min (>60); Estimated Creatinine Clearance 117.72 ml/min; Glucose 198 mg/dL (74-106); Potassium 3.4 mmol/L (3.5-5.1); Sodium Level 143 mmol/L (136-145)
[2022-03-24 05:12] LABS: Differential Comment SCANNED
--- NOTE | 2022-03-24 06:40 | CON.PCM.CC_ITS ---
Assessment & Plan Assessment/Plan (1) DKA (diabetic ketoacidosis): QUALIFIERS: Diabetes mellitus type: type 1 Diabetes mellitus complication detail: without coma Qualified Code(s): E10.10 - Type 1 diabetes mellitus with ketoacidosis without coma PLAN: RECOMMENDATIONS: 1. Bolused with 1 L of LR 2. No further bicarbonate infusions 3. Aggressive potassium repletion 4. Continue with DKA protocol 5. Monitor mental status clinically. No further imaging IMPRESSIONS: 1. Recurrent DKA without coma Clinical suspicion is for noncompliance as an etiology. Patient does not have any acute signs or symptoms of infectious etiology. Patient is on the DKA protocol. Patient remains volume depleted on exam. Will bolus with LR. Continue to monitor per protocol. Not ready for transition to subcu insulin at this time. 2. Metabolic encephalopathy secondary to DKA Patient not in coma, but not providing much additional history. Unclear how much of this is behavioral in nature. Patient reportedly is improving per nursing. 3. Reported asthma/history of noncompliance Complicates care, management, recovery and prognosis. No signs or symptoms of asthma exacerbation at this time. Patient does have access to insulin therapy previously. We will have to reassess once patient is more interactive about further complicating factors. HPI Consult Data Date of Consult: 03/24/22 HPI Narrative HPI Narrative: SHIRA STEPHENSON is a 21 M, with past medical history listed below and well-known to me from multiple admissions, who presents to [facility] 03/23/2022 secondary to altered mental status and syncopal episode. Patient reportedly has had increasing blood sugars for the last 48 hours and was not eating or drinking normally. For this reason, patient stopped taking his insulin. Patient reportedly had a syncopal episode prompting transfer to the ER for evaluation. In the ER, patient was afebrile, but tachycardic at 110 bpm. Patient was also tachypneic into the 30s. Patient was saturating well on room air. Laboratory work-up showed a white blood cell count of 31.1, hemoglobin of 17.6 and platelet count of 720. Sodium was was noted at 126 with a blood glucose of 786. Bicarb was 6 and potassium was 5.1. Lactate was elevated at 2.9. Alkaline phosphatase was slightly elevated at 165. UA was unremarkable and venous blood gas showed a pH of 6.7. Chest x-ray and brain CT were unremarkable and EKG confirmed sinus tachycardia. Patient was diagnosed with DKA, given IV fluids, amp of bicarb insulin drip and admitted to the intensive care unit. Overnight, patient has received significant amounts of fluid. Patient remains tachycardic, but is more responsive. Patient will open his eyes to voice, but is not actively following commands or providing much additional history. Patient's respiratory rate has significantly improved. Patient remains on room air. Patient denied any pain to nursing overnight. No nausea or vomiting is been reported. Patient is not able to provide any insight onto the cause of his DKA. 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 Ulcer of leg, chronic Uncontrolled type 1 diabetes mellitus Home Medications blood sugar diagnostic #200 ea 09/08/21 [Rx Last Taken Unknown] pen needle, diabetic 32 gauge x #360 ea 09/08/21 [Rx Last Taken Unknown] flash glucose sensor #2 ea 10/11/21 [Rx Last Taken Unknown] Lantus Solostar U-100 Insulin 38 unit SUBCUT QHS 01/27/22 [History Last Taken Unknown] insulin lispro 30 unit SUBCUT TIDCM 01/27/22 [History Last Taken Unknown] Allergy/AdvReac Type Severity Reaction Status Date / Time Milk Containing Products AdvReac Diarrhea Verified 01/27/22 15:42 Family History Father Polysubstance overdose Patient father young secondary to OD. Mother Iron deficiency anemia Other Asthma CVA (cerebral vascular accident) Diabetes Hypertension Thyroid disorder Surgical History History of surgery on extremity Hx of knee surgery Social History housing: other details: Lives with his grandmother, aunt and mother. Smoking Status: Never smoker alcohol intake: never substance use type: does not use ROS Review of Systems ROS Unobtainable: due to encephalopathy Physical Exam Const Constitutional Narrative: Patient is somnolent with a RASS of -1 General Appearance: well kempt and well developed Orientation / Consciousness: awake, oriented to person, oriented to place and oriented to time HEENT normocephalic and head/scalp atraumatic HEENT Narrative: Mucous membranes are moist Eyes PERRL and conjunctivae normal Neck nuchal rigidity, supple, no JVD and thyroid normal General: trachea midline Resp normal respiratory effort, no retractions, no use of accessory muscles and clear to auscultation bilaterally Resp Narrative: Patient is breathing comfortably Auscultation: Negative for rales, rhonchi or wheezes Cardio regular rate, regular rhythm, S1 normal heart sound, S2 normal heart sound, no murmurs, no rub and no gallops GI normal to inspection, nondistended, normoactive bowel sounds, soft to palpation, non-tender and non-distended Extremity no clubbing, cyanosis or edema Skin Skin Narrative: Skin turgor is normal General Skin Exam: no breakdown Neuro CN's II-XII intact bilaterally and no sensory deficits noted Psych Psych Narrative: Patient is resting comfortably. He does not follow verbal commands, he responds to painful stimuli Lab / Micro Data Result Diagrams: 03/24/22 04:20 03/24/22 04:20 Labs: Laboratory Results - last 24 hr 03/23/22 13:20: WBC 31.1 H*, RBC 6.03, Hgb 17.6 H, Hct 52.0, MCV 86.2, MCH 29.2, MCHC 33.8, RDW Std Deviation 39.0, RDW Coeff of Rabia 12.6, Plt Count 720 H, MPV 10.3, Immature Gran % (Auto) 4.200 H, Neut % (Auto) 66.6, Lymph % (Auto) 18.2 L, Arthur % (Auto) 10.2 H, Eos % (Auto) 0.2, Baso % (Auto) 0.6, Absolute Neuts (auto) 20.7 H, Absolute Lymphs (auto) 5.66 H, Nucleated RBC % 0, Diff Path Review March03/23/22 13:20: Sodium 126 L, Potassium 5.1, Chloride 93 L, Carbon Dioxide 6.0 L*, Anion Gap 27 H, BUN 26 H, Creatinine 1.65 H, Estim Creat Clear Calc 71.72, Est GFR (MDRD) Af Amer 68, Est GFR (MDRD) Non-Af 56 L, BUN/Creatinine Ratio 15.8, Glucose 786 H*, Calcium 9.4, Total Bilirubin 1.00, AST 13 L, ALT 26, Alkaline Phosphatase 165 H, Total Protein 8.4 H, Albumin 4.5, Globulin 3.9, Albumin/Globulin Ratio 1.2, Lipase 24 L 03/23/22 13:20: Lactic Acid 2.9 H* 03/23/22 13:20: Acetone Level LARGE H 03/23/22 13:48: Urine Opiates Screen NEGATIVE, Urine Methadone Screen NEGATIVE, Ur Barbiturates Screen NEGATIVE, Ur Phencyclidine Scrn NEGATIVE, Ur Amphetamines Screen NEGATIVE, MDMA (Ecstasy) Screen NEGATIVE, U Benzodiazepines Scrn NEGATIVE, Urine Cocaine Screen NEGATIVE, U Cannabinoids Screen NEGATIVE, Ur Drug Screen Comment 03/23/22 13:48: Urine Color Straw, Urine Clarity Sl. Cloudy, Urine pH 5.0, Ur Specific [place] 1.020, Urine Protein 100 H, Urine Glucose (UA) 1000 H, Urine Ketones 150 A*, Urine Occult Blood 25 H, Urine Nitrite Negative, Urine Bilirubin Negative, Urine Urobilinogen Normal, Ur Leukocyte Esterase Negative, Urine RBC 0 SEEN, Urine WBC 0 SEEN, Ur Squamous Epith Cells 0-5 SEEN, Urine Bacteria 0 SEEN, Urine Mucus 0 SEEN 03/23/22 16:17: POC Glucose > 500 H* 03/23/22 16:25: Sodium 132 L, Potassium 5.1, Chloride 101, Carbon Dioxide 4.0 L* , Anion Gap 27 H, BUN 29 H, Creatinine 1.46 H, Estim Creat Clear Calc 81.05, Est GFR (MDRD) Af Amer 78, Est GFR (MDRD) Non-Af 65, BUN/Creatinine Ratio 19.9, Glucose 710 H*, Calcium 8.8 03/23/22 18:07: POC Glucose 454 H* 03/23/22 19:18: POC Glucose 343 H 03/23/22 20:00: POC Glucose 324 H 03/23/22 20:15: Sodium 140, Potassium 4.6, Chloride 114 H, Carbon Dioxide 5.0 L* , Anion Gap 21 H, BUN 26 H, Creatinine 1.03, Estim Creat Clear Calc 112.00, Est GFR (MDRD) Af Amer 117, Est GFR (MDRD) Non-Af 97, BUN/Creatinine Ratio 25.2 H, Glucose 331 H, Calcium 8.4 L 03/23/22 20:15: Lactic Acid 0.8 03/23/22 21:11: POC Glucose 287 H 03/23/22 22:04: POC Glucose 255 H 03/23/22 23:12: POC Glucose 266 H 03/23/22 : Lactic Acid Cancelled 03/24/22 00:14: POC Glucose 219 H 03/24/22 00:15: Sodium 141, Potassium 4.2, Chloride 115 H, Carbon Dioxide 6.0 L* , Anion Gap 20 H, BUN 20 H, Creatinine 0.95, Estim Creat Clear Calc 121.44, Est GFR (MDRD) Af Amer 129, Est GFR (MDRD) Non-Af 107, BUN/Creatinine Ratio 21.1 H, Glucose 261 H, Calcium 8.3 L 03/24/22 01:08: POC Glucose 245 H 03/24/22 02:21: POC Glucose 212 H 03/24/22 03:28: POC Glucose 195 H 03/24/22 04:20: Sodium 143, Potassium 3.4 L, Chloride 117 H, Carbon Dioxide 13.0 L, Anion Gap 13, BUN 19 H, Creatinine 0.98, Estim Creat Clear Calc 117.72, Est GFR (MDRD) Af Amer 123, Est GFR (MDRD) Non-Af 102, BUN/Creatinine Ratio 19.3, Glucose 198 H, Calcium 8.6 03/24/22 04:20: WBC 9.9, RBC 4.63, Hgb 13.7, Hct 36.7 L, MCV 79.3 L D, MCH 29.6, MCHC 37.3 H D, RDW Std Deviation 36.0, RDW Coeff of Rabia 12.7, Plt Count 329, MPV 9.5, Immature Gran % (Auto) 1.500 H, Neut % (Auto) 82.5 H, Lymph % (Auto) 5.1 L, Arthur % (Auto) 10.8 H, Eos % (Auto) 0.0, Baso % (Auto) 0.1, Absolute Neuts (auto) 8.2 H, Absolute Lymphs (auto) 0.50 L, Nucleated RBC % 0, Differential Comment SCANNED ABG Data ABG results: ABG 03/23/22 03/24/22 14:07 03:42 Specimen Type MARILYNN ART Sample Site L Radial pH 7.34 L Bicarbonate Actual 10.8 L Total CO2 11 Base Excess -15 L O2 Saturation 98 ABG pCO2 20.0 L ABG pO2 106 H Hector Test Positive VBG pH 6.71 L* VBG pO2 65 H VBG Total CO2 < 5 L VBG O2 Sat (Calc) 63 VBG Base Excess < -30 L POC Mix VBG pCO2 Pt Tmp 23.0 L O2 Delivery Device Room Air Room Air Crit Call To/Read Back Yes Radiology Impression Brain CT 03/23/22 13:35 IMPRESSION: Normal unenhanced CT scan of the brain. Electronically Signed: Willy Callahan MD at 14:23 EDT , Chest X-Ray 03/23/22 13:58 IMPRESSION: Normal x-ray examination of the chest. Electronically Signed: Willy Callahan MD at 14:13 EDT , Charges/Coding Visit Charges Inpatient E&M: 69555 Init Hosp L3
[2022-03-24] MEDS: Dext 5%-0.45% NS 1,000 ML 150 ML IV ×2 (06:41)
[2022-03-24 07:31] LABS: Bedside Glucose 160 mg/dL (74-106)
[2022-03-24 07:31] LABS: Bedside Glucose 164 mg/dL (74-106)
[2022-03-24 07:31] LABS: Bedside Glucose 139 mg/dL (74-106)
[2022-03-24 07:31] LABS: Bedside Glucose 169 mg/dL (74-106)
[2022-03-24] MEDS: Potassium Chloride 10mEq/100mL 10 MEQ/100 ML IV.SOLN. 100 MEQ IV BOLUS ×4 (07:35→10:27)
[2022-03-24] MEDS: Lactated Ringers 1,000 ML 999 ML IV (07:35)
--- NOTE | 2022-03-24 07:36 | PN.HOSP_ITS ---
Subjective Subjective Follow-up on acute DKA: Patient was seen and examined. He appeared alert oriented to himself when I examined him. His anion gap is closed. He got an insulin. Patient cannot tell me anything on review of systems Objective Data Objective Data Vital Signs: Vital Signs Temp Pulse Resp BP Pulse Ox 99.4 F H 134 H 19 H 100/47 L 100 03/24/22 04:00 03/24/22 04:00 03/24/22 04:00 03/24/22 04:00 03/24/22 04:00 Oxygen Delivery Method Room Air Weight: 73 kg Body Mass Index (BMI) 20.8 Intake & Output: Intake and Output for Last 24 Hours 03/22/22 03/23/22 03/24/22 23:59 23:59 23:59 Intake Total 7028.43 / 7030.73 1031.4 / 1031.4 Output Total 1750 / 2550 2029 / 2029 Balance 5278.43 / 4480.73 -998.6 / -998.6 Lab / Micro Data Result Diagrams: 03/24/22 04:20 03/24/22 08:13 Labs: Laboratory Results - last 24 hr 03/23/22 13:20: WBC 31.1 H*, RBC 6.03, Hgb 17.6 H, Hct 52.0, MCV 86.2, MCH 29.2, MCHC 33.8, RDW Std Deviation 39.0, RDW Coeff of Rabia 12.6, Plt Count 720 H, MPV 10.3, Immature Gran % (Auto) 4.200 H, Neut % (Auto) 66.6, Lymph % (Auto) 18.2 L, [place] % (Auto) 10.2 H, Eos % (Auto) 0.2, Baso % (Auto) 0.6, Absolute Neuts (auto) 20.7 H, Absolute Lymphs (auto) 5.66 H, Nucleated RBC % 0, Diff Path Review March03/23/22 13:20: Sodium 126 L, Potassium 5.1, Chloride 93 L, Carbon Dioxide 6.0 L*, Anion Gap 27 H, BUN 26 H, Creatinine 1.65 H, Estim Creat Clear Calc 71.72, Est GFR (MDRD) Af Amer 68, Est GFR (MDRD) Non-Af 56 L, BUN/Creatinine Ratio 15.8, Glucose 786 H*, Calcium 9.4, Total Bilirubin 1.00, AST 13 L, ALT 26, Alkaline Phosphatase 165 H, Total Protein 8.4 H, Albumin 4.5, Globulin 3.9, Albumin/Globulin Ratio 1.2, Lipase 24 L 03/23/22 13:20: Lactic Acid 2.9 H* 03/23/22 13:20: Acetone Level LARGE H 03/23/22 13:48: Urine Opiates Screen NEGATIVE, Urine Methadone Screen NEGATIVE, Ur Barbiturates Screen NEGATIVE, Ur Phencyclidine Scrn NEGATIVE, Ur Amphetamines Screen NEGATIVE, MDMA (Ecstasy) Screen NEGATIVE, U Benzodiazepines Scrn NEGATIVE, Urine Cocaine Screen NEGATIVE, U Cannabinoids Screen NEGATIVE, Ur Drug Screen Comment 03/23/22 13:48: Urine Color Straw, Urine Clarity Sl. Cloudy, Urine pH 5.0, Ur Specific Hedrick 1.020, Urine Protein 100 H, Urine Glucose (UA) 1000 H, Urine Ketones 150 A*, Urine Occult Blood 25 H, Urine Nitrite Negative, Urine Bilirubin Negative, Urine Urobilinogen Normal, Ur Leukocyte Esterase Negative, Urine RBC 0 SEEN, Urine WBC 0 SEEN, Ur Squamous Epith Cells 0-5 SEEN, Urine Bacteria 0 SEEN, Urine Mucus 0 SEEN 03/23/22 16:17: POC Glucose > 500 H* 03/23/22 16:25: Sodium 132 L, Potassium 5.1, Chloride 101, Carbon Dioxide 4.0 L* , Anion Gap 27 H, BUN 29 H, Creatinine 1.46 H, Estim Creat Clear Calc 81.05, Est GFR (MDRD) Af Amer 78, Est GFR (MDRD) Non-Af 65, BUN/Creatinine Ratio 19.9, Glucose 710 H*, Calcium 8.8 03/23/22 18:07: POC Glucose 454 H* 03/23/22 19:18: POC Glucose 343 H 03/23/22 20:00: POC Glucose 324 H 03/23/22 20:15: Sodium 140, Potassium 4.6, Chloride 114 H, Carbon Dioxide 5.0 L* , Anion Gap 21 H, BUN 26 H, Creatinine 1.03, Estim Creat Clear Calc 112.00, Est GFR (MDRD) Af Amer 117, Est GFR (MDRD) Non-Af 97, BUN/Creatinine Ratio 25.2 H, G lucose 331 H, Calcium 8.4 L 03/23/22 20:15: Lactic Acid 0.8 03/23/22 21:11: POC Glucose 287 H 03/23/22 22:04: POC Glucose 255 H 03/23/22 23:12: POC Glucose 266 H 03/23/22 : Lactic Acid Cancelled 03/24/22 00:14: POC Glucose 219 H 03/24/22 00:15: Sodium 141, Potassium 4.2, Chloride 115 H, Carbon Dioxide 6.0 L* , Anion Gap 20 H, BUN 20 H, Creatinine 0.95, Estim Creat Clear Calc 121.44, Est GFR (MDRD) Af Amer 129, Est GFR (MDRD) Non-Af 107, BUN/Creatinine Ratio 21.1 H, Glucose 261 H, Calcium 8.3 L 03/24/22 01:08: POC Glucose 245 H 03/24/22 02:21: POC Glucose 212 H 03/24/22 03:28: POC Glucose 195 H 03/24/22 04:20: Sodium 143, Potassium 3.4 L, Chloride 117 H, Carbon Dioxide 13.0 L, Anion Gap 13, BUN 19 H, Creatinine 0.98, Estim Creat Clear Calc 117.72, Est GFR (MDRD) Af Amer 123, Est GFR (MDRD) Non-Af 102, BUN/Creatinine Ratio 19.3, Glucose 198 H, Calcium 8.6 03/24/22 04:20: WBC 9.9, RBC 4.63, Hgb 13.7, Hct 36.7 L, MCV 79.3 L D, MCH 29.6, MCHC 37.3 H D, RDW Std Deviation 36.0, RDW Coeff of Rabia 12.7, Plt Count 329, MPV 9.5, Immature Gran % (Auto) 1.500 H, Neut % (Auto) 82.5 H, Lymph % (Auto) 5.1 L, [place] % (Auto) 10.8 H, Eos % (Auto) 0.0, Baso % (Auto) 0.1, Absolute Neuts (auto) 8.2 H, Absolute Lymphs (auto) 0.50 L, Nucleated RBC % 0, Differential Comment SCANNED 03/24/22 04:20: POC Glucose 169 H 03/24/22 05:19: POC Glucose 160 H 03/24/22 06:24: POC Glucose 164 H 03/24/22 07:10: POC Glucose 139 H ABG Data ABG results: ABG 03/23/22 03/24/22 14:07 03:42 Specimen Type MARILYNN ART Sample Site L Radial pH 7.34 L Bicarbonate Actual 10.8 L Total CO2 11 Base Excess -15 L O2 Saturation 98 ABG pCO2 20.0 L ABG pO2 106 H Hector Test Positive VBG pH 6.71 L* VBG pO2 65 H VBG Total CO2 < 5 L VBG O2 Sat (Calc) 63 VBG Base Excess < -30 L POC Mix VBG pCO2 Pt Tmp 23.0 L O2 Delivery Device Room Air Room Air Crit Call To/Read Back Yes Radiography Diagnostic Testing: Radiology Impression Brain CT 03/23/22 13:35 IMPRESSION: Normal unenhanced CT scan of the brain. Electronically Signed: Willy Callahan MD at 14:23 EDT , Chest X-Ray 03/23/22 13:58 IMPRESSION: Normal x-ray examination of the chest. Electronically Signed: Willy Callahan MD at 14:13 EDT , Physical Exam Narrative Physical exam: General: Alert, Oriented to self, severely dehydrated HEENT: Atraumatic Oral: Moist Mucosa Neck: Supple Lungs: Clear to auscultation Cardiovascular: HS I+II, regular, no murmurs Abdomen: Bowel Sounds Present, Soft, Non Tender Extremities: Bilateral leg erythema, ? rash with differential warmth Skin: No rashes, No breakdown Neurological: Grossly intact Psych/Mental Status: Appropriate Assessment & Plan Assessment/Plan (1) Diabetic ketoacidosis: PLAN: 1. Acute DKA in a known type I DM Unclear reason for current DKA Suspect secondary to bilateral feet cellulitis Transition patient to long-acting insulin, continue to monitor vitals, continue IV fluids 2. Bilateral feet cellulitis, unclear etiology Will start patient on cefazolin Continue to monitor 3. Hypokalemia, replaced, will check magnesium level 4. Acute metabolic encephalopathy secondary to DKA, patient is oriented to self, we will continue to monitor 5. Noncompliance, chronic, recurrent admissions for acute DKA, complicates patient's long-term management 6. DVT PPx- early ambulation recommended Charges/Coding Visit Charges Inpatient E&M: 57753 [facility] Hosp L3
[2022-03-24 08:15] LABS: Bedside Glucose 116 mg/dL (74-106)
[2022-03-24 08:35] LABS: Anion Gap 7 (5-15); BUN 18 mg/dL (7-18); BUN/Creat Ratio 17.3 RATIO (10-20); Calcium,Total 8.7 mg/dL (8.5-10.1); Chloride 117 mmol/L (98-107); Creatinine, Serum 1.04 mg/dL (0.70-1.30); EST Glomerular Filtration Rate 96 mL/min (>60); Est Glom Filt Rate - Afr Amer 116 mL/min (>60); Estimated Creatinine Clearance 116.01 ml/min; Glucose 123 mg/dL (74-106); Potassium 3.1 mmol/L (3.5-5.1); Sodium Level 142 mmol/L (136-145)
[2022-03-24] MEDS: Insulin Glargine-YFGN 100 UNIT/ML Pen 15 UNIT SC ×2 (09:24→21:00)
[2022-03-24 10:03] LABS: VBG Bicarbonate 3 mmol/L (22-26)
[2022-03-24 10:04] LABS: VBG BASE EXCESS < -30 mmol/L (-1.0-3.5)
[2022-03-24 10:16] LABS: Bedside Glucose 96 mg/dL (74-106)
[2022-03-24] MEDS: Potassium Chloride Oral Tablet 20 MEQ 40 MEQ PO (10:38)
[2022-03-24] MEDS: Cefazolin 1 GM/50 ML BAG IV ×3 (10:46→21:02)
[2022-03-24 10:47] LABS: Magnesium 1.6 mg/dL (1.6-2.6)
[2022-03-24] MEDS: Insulin Lispro 100 UNIT/ML INSULN.PEN SC ×3 (11:24→20:59)
[2022-03-24 11:26] LABS: Bedside Glucose 156 mg/dL (74-106)
--- NOTE | 2022-03-24 11:27 | CASEMGMT ---
Social Work SW met with patient. He was sleeping, but did wake up and was willing to talk with SW. PCP: Tori Butler Specialists: Nurse Practitioner- Melissa Mendez with Dr Galindo's office- Endorcrinology Preferred Pharmacy: [facility] Insurance: [place] [employer] Prescription Benefit: Yes Living Will/HPOA: No Living Arrangements: Patient lives with his aunt. Patient said there are several other people that live in the home. Transportation: Patient's family has transportation. However, he states transportation can be difficult due to vehicles breaking down. SW asked patient if he was aware [employer] provides transportation to medical appointments. Patient nodded his head. SW provided patient with a print out from [employer]'s website regarding their transportation assistance. DME: [employer] HHC/SNF: none Mental Health: Patient denies any history of Anxiety or Depression. Substance Use: Patient denies any history of alcohol or illegal drug use. Community Resources: [place] [employer] SW spoke with patient about home situation. Patient said he lives with his aunt and there are a bunch of other people living there. He feels like he has good support from family. Patient stated he is checking his blood sugars 4 times a day. SW asked asked patient what happened that he ended up back in the hospital. Patient states he thinks he ate something that made him sick. SW asked patient about his missed appointment with Endocrinology in January. Patient said his grandma's car broke down. SW stressed the importance of going to these appointments and if he cannot make it to call the office to cancel. The office could refuse to see him if he has too many no shows. SW let patient know there are limited options for Endocrinology in the [facility] so it is important to go to appts. SW asked patient if he understands the seriousness of his Diabetes. Patient states he does. VERNON told patient [facility] will attempt to make a follow up appt with Dr Galindo's office. SW will also arrange transportation to this appointment. Patient was in agreement with this. Patient asked if he could have more water. SW confirmed with RN he can have more water. SW got patient more water. VERNON called Dr Galindo's office to schedule a follow up appt. There are no appts this month. Computer[employer] will check with Nurse Practitioner Melissa to see if she can fit patient in somewhere. She will get back to VERNON. [place] said patient has a lot of no shows so it is important to stress the importance of showing up to appts. VERNON let her know VERNON plans on setting up transportation for patient to this appt. Now that patient has [employer] Insurance VERNON will call Paige to inquire about the Care Management Program for patient. Marie Elliott INSURANCE ADVISOR [place]
--- NOTE | 2022-03-24 12:03 | CASEMGMT ---
VERNON called [facility] Care Coordination Department about disease/case management. VERNON spoke with Chaya regarding referral. Chaya took patient's information and will pass along the referral to the Care Coordination Dept. Marie KRUGER
[2022-03-24 13:27] LABS: Pathologist Review Reviewed
--- NOTE | 2022-03-24 15:08 | CASEMGMT ---
Addendum entered by Marie Elliott 03/24/22 15:37: VERNON was able to secure transportation for patient to his April 20 appt with Melissa Mendez at Dr Galindo's office. VERNON wrote down this information and gave it to patient. Marie KRUGER Original Note: VERNON received a return call from Tati at Dr Galindo's office. Dr Galindo is not willing to cancel another patient's appt in order to get patient in sooner due to the number of no shows he has had. The next available appointment with Nurse Practitioner Melissa Mendez is April 20 at 8:15a. VERNON then called [facility] to schedule transportation, however VERNON was cut off. VERNON will try again. Marie KRUGER
[2022-03-24 16:41] LABS: Bedside Glucose 313 mg/dL (74-106)
[2022-03-24] MEDS: 0.9% Saline Lock 10 ML Syringe IV (20:58)
[2022-03-24 21:41] LABS: Bedside Glucose 337 mg/dL (74-106)
[2022-03-25] VITALS (10 sets, daily range): BP systolic 112–123; BP diastolic 50–80; PULSE 95–116; RESP 12–16; TEMP 36.6–37; O2SAT 97–100
[2022-03-25] MEDS: Cefazolin 1 GM/50 ML BAG IV ×3 (06:21→21:53)
[2022-03-25] MEDS: 0.9% Saline Lock 10 ML Syringe IV (06:22)
[2022-03-25] MEDS: Insulin Lispro 100 UNIT/ML INSULN.PEN SC ×4 (06:26→21:52)
--- NOTE | 2022-03-25 06:46 | PN.CC_ITS ---
Assessment & Plan Assessment/Plan (1) DKA (diabetic ketoacidosis): QUALIFIERS: Diabetes mellitus type: type 1 Diabetes mellitus complication detail: without coma Qualified Code(s): E10.10 - Type 1 diabetes mellitus with ketoacidosis without coma PLAN: RECOMMENDATIONS: 1. Obtain BMP. Replete potassium if necessary. 2. No further bicarbonate infusions 3. Aggressive potassium repletion 4. Hemodynamically stable on room air. Will sign off from a critical care perspective 5. Monitor mental status clinically. No further imaging IMPRESSIONS: 1. Recurrent DKA without coma Clinical suspicion is for noncompliance as an etiology. Patient does not have any acute signs or symptoms of infectious etiology. Patient successfully transitioned to subcu insulin. Patient with significant hypokalemia yesterday. We will check chemistries this morning. However, patient is hemodynamically stable on room air. Will sign off from a critical care perspective. 2. Metabolic encephalopathy secondary to DKA Resolved. Patient not in coma, but not providing much additional history. Unclear how much of this is behavioral in nature. Patient reportedly is improving per nursing. 3. Reported asthma/history of noncompliance Complicates care, management, recovery and prognosis. No signs or symptoms of asthma exacerbation at this time. Patient does have access to insu eze therapy. Subjective Subjective Patient did well overnight. Patient requesting to go home today. Patient is denying any nausea or vomiting. Patient has been able to tolerate p.o. Patient is not any chest pain. Objective Data Objective Data Vital Signs: Vital Signs Temp Pulse Resp BP Pulse Ox 36.6 C 113 H 16 112/50 L 97 03/25/22 03:39 03/25/22 03:39 03/25/22 03:39 03/25/22 03:39 03/25/22 03:39 Oxygen Delivery Method Room Air Weight: 73.6 kg Body Mass Index (BMI) 20.8 Intake & Output: Intake and Output for Last 24 Hours 03/23/22 03/24/22 03/25/22 23:59 23:59 23:59 Intake Total 7028.43 / 7030.73 3549.20 / 4149.20 720 / 720 Output Total 1750 / 2550 3330 / 4580 1750 / 1750 Balance 5278.43 / 4480.73 219.20 / -430.80 -1030 / -1030 Lab / Micro Data Result Diagrams: 03/24/22 04:20 03/24/22 08:13 Labs: Laboratory Results - last 24 hr 03/23/22 13:20: Diff Path Review Reviewed 03/24/22 04:20: POC Glucose 169 H 03/24/22 05:19: POC Glucose 160 H 03/24/22 06:24: POC Glucose 164 H 03/24/22 07:10: POC Glucose 139 H 03/24/22 08:09: POC Glucose 116 H 03/24/22 08:13: Sodium 142, Potassium 3.1 L, Chloride 117 H, Carbon Dioxide 18.0 L, Anion Gap 7, BUN 18, Creatinine 1.04, Estim Creat Clear Calc 116.01, Est GFR (MDRD) Af Amer 116, Est GFR (MDRD) Non-Af 96, BUN/Creatinine Ratio 17.3, Glucose 123 H, Calcium 8.7 03/24/22 08:13: Magnesium 1.6 03/24/22 10:08: POC Glucose 96 03/24/22 11:22: POC Glucose 156 H 03/24/22 16:24: POC Glucose 313 H 03/24/22 20:58: POC Glucose 337 H ABG Data ABG results: ABG 03/23/22 14:07 VBG HCO3 3 L VBG Base Excess < -30 L Physical Exam Const General Appearance: cooperative, comfortable, well kempt and well developed Orientation / Consciousness: awake, oriented to person, oriented to place and oriented to time HEENT normocephalic and head/scalp atraumatic HEENT Narrative: Mucous membranes are moist Eyes PERRL and conjunctivae normal Neck nuchal rigidity, supple, no JVD and thyroid normal General: trachea midline Resp normal respiratory effort, no retractions, no use of accessory muscles and clear to auscultation bilaterally Resp Narrative: Patient is breathing comfortably Auscultation: Negative for rales, rhonchi or wheezes Cardio regular rate, regular rhythm, S1 normal heart sound, S2 normal heart sound, no murmurs, no rub and no gallops GI normal to inspection, nondistended, normoactive bowel sounds, soft to palpation, non-tender and non-distended Extremity no clubbing, cyanosis or edema Skin Skin Narrative: Skin turgor is normal General Skin Exam: no breakdown Neuro CN's II-XII intact bilaterally and no sensory deficits noted Psych Psych Narrative: Patient is resting comfortably. Charges/Coding Visit Charges Inpatient E&M: 01585 Subs Hosp L2
[2022-03-25 07:38] LABS: Anion Gap 12 (5-15); BUN 13 mg/dL (7-18); BUN/Creat Ratio 14.3 RATIO (10-20); Calcium,Total 8.7 mg/dL (8.5-10.1); Chloride 106 mmol/L (98-107); Creatinine, Serum 0.91 mg/dL (0.70-1.30); EST Glomerular Filtration Rate 112 mL/min (>60); Est Glom Filt Rate - Afr Amer 136 mL/min (>60); Estimated Creatinine Clearance 133.68 ml/min; Glucose 267 mg/dL (74-106); Sodium Level 136 mmol/L (136-145)
[2022-03-25 07:46] LABS: Bedside Glucose 302 mg/dL (74-106)
[2022-03-25] MEDS: Potassium Chloride Oral Tablet 20 MEQ 40 MEQ PO (09:06)
[2022-03-25 11:41] LABS: Bedside Glucose 341 mg/dL (74-106)
--- NOTE | 2022-03-25 13:24 | PN.HOSP_ITS ---
Subjective Subjective Follow-up on Acute DKA/hypokalemia: Patient was seen and examined. He denied any new complaints. He is much more alert, oriented x3. Telemetry shows tachycardia. Objective Data Objective Data Vital Signs: Vital Signs Temp Pulse Resp BP Pulse Ox 98.5 F 110 H 16 118/56 L 100 03/25/22 09:00 03/25/22 09:00 03/25/22 09:00 03/25/22 09:00 03/25/22 09:00 Oxygen Delivery Method Room Air Weight: 73.6 kg Body Mass Index (BMI) 20.8 Intake & Output: Intake and Output for Last 24 Hours 03/23/22 03/24/22 03/25/22 23:59 23:59 23:59 Intake Total 7028.43 / 7030.73 3549.20 / 4149.20 1370 / 1370 Output Total 1750 / 2550 3330 / 4580 1750 / 1750 Balance 5278.43 / 4480.73 219.20 / -430.80 -380 / -380 Lab / Micro Data Result Diagrams: 03/24/22 04:20 03/25/22 07:13 Labs: Laboratory Results - last 24 hr 03/23/22 13:20: Diff Path Review Reviewed 03/24/22 16:24: POC Glucose 313 H 03/24/22 20:58: POC Glucose 337 H 03/25/22 06:26: POC Glucose 302 H 03/25/22 07:13: Sodium 136, Potassium 3.0 L, Chloride 106, Carbon Dioxide 18.0 L , Anion Gap 12, BUN 13, Creatinine 0.91, Estim Creat Clear Calc 133.68, Est GFR (MDRD) Af Amer 136, Est GFR (MDRD) Non-Af 112, BUN/Creatinine Ratio 14.3, Glucose 267 H, Calcium 8.7 03/25/22 11:30: POC Glucose 341 H Physical Exam Narrative Physical exam: General: Alert, Oriented x3, well hydrated HEENT: Atraumatic Oral: Moist Mucosa Neck: Supple Lungs: Clear to auscultation Cardiovascular: HS I+II, regular, no murmurs Abdomen: Bowel Sounds Present, Soft, Non Tender Extremities: Bilateral leg erythema, improving Skin: No rashes, No breakdown Neurological: Grossly intact Psych/Mental Status: Appropriate Assessment & Plan Assessment/Plan (1) Diabetic ketoacidosis: QUALIFIERS: Diabetes mellitus type: type 1 Diabetes mellitus complication detail: without coma Qualified Code(s): E10.10 - Type 1 diabetes mellitus with ketoacidosis without coma PLAN: 1. Acute DKA in a known type I DM, likely secondary to bilateral feet cellulitis Continue on Lantus 38 units QHS and premeal insulin 25 units TIS, ISS 2. Tachycardia, unclear etiology, likely related to dehydration We will check TSH, magnesium, continue IV fluids 3. Bilateral feet cellulitis, unclear etiology, continue IV cefazolin Continue to monitor 4. Hypokalemia, replaced, 5. Acute metabolic encephalopathy secondary to DKA, resolved Continue to monitor 6. Noncompliance, chronic, recurrent admissions for acute DKA, complicates patient's long-term management 7. DVT PPx- early ambulation recommended Charges/Coding Visit Charges Inpatient E&M: 29528 Subs Hosp L2
[2022-03-25 14:03] LABS: Magnesium 1.7 mg/dL (1.6-2.6); Thyroid Stim Hormone (TSH) 0.85 uIU/mL (0.358-3.74)
[2022-03-25] MEDS: Lactated Ringers 1,000 ML 100 ML IV (14:14)
[2022-03-25 17:06] LABS: Bedside Glucose 325 mg/dL (74-106)
[2022-03-25] MEDS: Insulin Lispro 100 UNIT/ML INSULN.PEN 25 UNIT SC (17:36)
[2022-03-25] MEDS: Insulin Glargine-YFGN 100 UNIT/ML Pen 38 UNIT SC (21:51)
[2022-03-25 22:11] LABS: Bedside Glucose 164 mg/dL (74-106)
[2022-03-26] VITALS (10 sets, daily range): BP systolic 118–125; BP diastolic 66–84; PULSE 77–165; RESP 12–18; TEMP 36.6–36.9; O2SAT 98–100
[2022-03-26] MEDS: Lactated Ringers 1,000 ML 100 ML IV (00:56)
[2022-03-26] MEDS: Cefazolin 1 GM/50 ML BAG IV ×3 (06:37→21:53)
[2022-03-26] MEDS: Insulin Lispro 100 UNIT/ML INSULN.PEN SC ×4 (07:03→21:55)
[2022-03-26] MEDS: Insulin Lispro 100 UNIT/ML INSULN.PEN 25 UNIT SC ×3 (07:03→16:34)
[2022-03-26 07:11] LABS: Bedside Glucose 413 mg/dL (74-106)
[2022-03-26 07:52] LABS: Absolute Lymphocyte Count 1.35 X10^3/uL (0.83-4.51); Basophil# 0.04 X10^3/uL; Eosinophil# 0.05 X10^3/uL; Eosinophils% 1.3 % (0-5); Hematocrit 37.7 % (40-54); Lymphocyte # 1.35 X10^3/ul (0.83-4.51); Lymphocyte % 34.4 % (19-41); Mean Corp Hgb Conc 34.5 g/dL (32-36); Mean Corpuscular Hgb 28.9 pg (27.0-32.0); Mean Corpuscular Volume 83.8 fL (80-94); Mean Platelet Vol. 9.7 fl (6.2-12.0); Monocyte# 0.46 X10^3/uL; Monocyte% 11.7 % (0-10); NRBC Flagged by Analyzer 0 % (0-5); Neutrophil # 2.01 X10^3/uL (2.7-7.7); Neutrophil % 51.1 % (47-70); Platelet Count 210 K/mm3 (150-450); RBC Distribution Width CV 12.4 % (11.6-14.6); White Blood Count 3.9 K/mm3 (4.4-11.0)
[2022-03-26 07:58] LABS: Differential Indicated SCAN CRITERIA MET
[2022-03-26 08:07] LABS: ALB/GLOB Ratio 1.1 RATIO (0.9-2.4); AST(SGOT) 8 U/L (15-37); Alanine Aminotransfer ALT/SGPT 13 U/L (16-61); Albumin, Serum 2.9 g/dL (3.2-5.0); Alkaline Phosphatase 82 U/L (45-117); Anion Gap 18 (5-15); BUN 16 mg/dL (7-18); BUN/Creat Ratio 22.1 RATIO (10-20); Calcium,Total 8.6 mg/dL (8.5-10.1); Chloride 103 mmol/L (98-107); Creatinine, Serum 0.72 mg/dL (0.70-1.30); EST Glomerular Filtration Rate 145 mL/min (>60); Est Glom Filt Rate - Afr Amer 175 mL/min (>60); Estimated Creatinine Clearance 173.08 ml/min; Globulin 2.7 g/dL (2.2-4.2); Glucose 375 mg/dL (74-106); Potassium 3.6 mmol/L (3.5-5.1); Protein, Total 5.6 g/dL (6.4-8.2); Sodium Level 138 mmol/L (136-145)
[2022-03-26 12:15] LABS: Bedside Glucose 428 mg/dL (74-106)
--- NOTE | 2022-03-26 14:03 | PN.HOSP_ITS ---
Subjective Subjective Follow-up on Acute DKA/hypokalemia: Patient was seen and examined. Patient has remained tachycardic with the least amount of exertion. He denied any new complaints. Objective Data Objective Data Vital Signs: Vital Signs Temp Pulse Resp BP Pulse Ox 97.9 F 109 H 12 125/84 H 100 03/26/22 10:17 03/26/22 10:17 03/26/22 10:17 03/26/22 10:17 03/26/22 10:17 Oxygen Delivery Method Room Air Weight: 75.4 kg Body Mass Index (BMI) 20.8 Intake & Output: Intake and Output for Last 24 Hours 03/24/22 03/25/22 03/26/22 23:59 23:59 23:59 Intake Total 3549.20 / 4149.20 2686.67 / 2686.67 2103.33 / 2103.33 Output Total 3330 / 4580 1750 / 1750 Balance 219.20 / -430.80 936.67 / 936.67 2103.33 / 2103.33 Lab / Micro Data Result Diagrams: 03/26/22 07:06 03/26/22 07:06 Labs: Laboratory Results - last 24 hr 03/25/22 07:13: Magnesium 1.7, TSH 0.85 03/25/22 16:43: POC Glucose 325 H 03/25/22 21:51: POC Glucose 164 H 03/26/22 07:00: POC Glucose 413 H 03/26/22 07:06: WBC 3.9 L, RBC 4.50 L, Hgb 13.0, Hct 37.7 L, MCV 83.8 D, MCH 28.9, MCHC 34.5 D, RDW Std Deviation 38.0, RDW Coeff of Rabia 12.4, Plt Count 210, MPV 9.7, Immature Gran % (Auto) 0.500, Neut % (Auto) 51.1, Lymph % (Auto) 34.4, [place] % (Auto) 11.7 H, Eos % (Auto) 1.3, Baso % (Auto) 1.0, Absolute Neuts (auto) 2.0, Absolute Lymphs (auto) 1.35, Nucleated RBC % 0 03/26/22 07:06: Sodium 138, Potassium 3.6, Chloride 103, Carbon Dioxide 17.0 L, Anion Gap 18 H, BUN 16, Creatinine 0.72, Estim Creat Clear Calc 173.08, Est GFR (MDRD) Af Amer 175, Est GFR (MDRD) Non-Af 145, BUN/Creatinine Ratio 22.1 H, Glucose 375 H, Calcium 8.6, Total Bilirubin 1.10 H, AST 8 L, ALT 13 L, Alkaline Phosphatase 82, Total Protein 5.6 L, Albumin 2.9 L, Globulin 2.7, Albumin/Globulin Ratio 1.1 03/26/22 07:06: Magnesium 2.0 03/26/22 12:03: POC Glucose 428 H Physical Exam Narrative Physical exam: General: Alert, Oriented x3, well hydrated HEENT: Atraumatic Oral: Moist Mucosa Neck: Supple Lungs: Clear to auscultation Cardiovascular: HS I+II, regular, no murmurs Abdomen: Bowel Sounds Present, Soft, Non Tender Extremities: Bilateral leg erythema, improving Skin: No rashes, No breakdown Neurological: Grossly intact Psych/Mental Status: Appropriate Assessment & Plan Assessment/Plan (1) Diabetic ketoacidosis: QUALIFIERS: Diabetes mellitus complication detail: without coma Diabetes mellitus type: type 1 Qualified Code(s): E10.10 - Type 1 diabetes mellitus with ketoacidosis without coma PLAN: 1. Acute DKA in a known type I DM, likely secondary to bilateral feet cellulitis Continue on Lantus 45 units QHS and premeal insulin 25 units TID with ISS 2. Tachycardia, unclear etiology, likely related to dehydration TSH 0.85, magnesium 2.0 Continue IV fluids 3. Bilateral feet cellulitis, unclear etiology, continue IV cefazolin Continue to monitor 4. Hypokalemia, replaced, 5. Acute metabolic encephalopathy secondary to DKA, resolved Continue to monitor 6. Noncompliance, chronic, recurrent admissions for acute DKA, complicates patient's long-term management 7. DVT PPx- early ambulation recommended 8. Possible DC in am if stable Charges/Coding Visit Charges Inpatient E&M: 25964 Subs Hosp L2
[2022-03-26 16:40] LABS: Bedside Glucose 321 mg/dL (74-106)
[2022-03-26 19:24] LABS: D-Dimer Quantitative (DVT/PE) 0.43 FEU/ug/m (0.27-0.49)
[2022-03-26] MEDS: Insulin Glargine-YFGN 100 UNIT/ML Pen 45 UNIT SC (21:55)
[2022-03-26 22:06] LABS: Bedside Glucose 312 mg/dL (74-106)
[2022-03-27 00:23] LABS: Anion Gap 10 (5-15); BUN 7 mg/dL (7-18); BUN/Creat Ratio 10.9 RATIO (10-20); Calcium,Total 6.9 mg/dL (8.5-10.1); Chloride 112 mmol/L (98-107); Creatinine, Serum 0.64 mg/dL (0.70-1.30); EST Glomerular Filtration Rate 167 mL/min (>60); Est Glom Filt Rate - Afr Amer 203 mL/min (>60); Estimated Creatinine Clearance 194.72 ml/min; Glucose 230 mg/dL (74-106); Potassium 2.6 mmol/L (3.5-5.1); Sodium Level 142 mmol/L (136-145)
--- NOTE | 2022-03-27 00:27 | NURSING ---
Pts primary rn aware of k of 2.6 at this time.
[2022-03-27] MEDS: Potassium Chloride Oral Tablet 20 MEQ 40 MEQ PO (00:45)
[2022-03-27] MEDS: Potassium Chloride 10mEq/100mL 10 MEQ/100 ML IV.SOLN. 100 MEQ IV BOLUS ×4 (00:47→04:41)
[2022-03-27 01:53] LABS: Magnesium 1.4 mg/dL (1.6-2.6)
[2022-03-27 02:29] VITALS: BP 109/60; PULSE 94; RESP 18; TEMP 36.6; O2SAT 97
[2022-03-27 03:00] VITALS: PULSE 110
[2022-03-27] MEDS: Magnesium Sulfate 4gm/100mL 4 GM/100 ML IV.SOLN. IV (03:19)
[2022-03-27] MEDS: Cefazolin 1 GM/50 ML BAG IV (05:54)
[2022-03-27 06:35] LABS: Bedside Glucose 215 mg/dL (74-106)
[2022-03-27 07:30] VITALS: PULSE 92
[2022-03-27 07:33] LABS: Absolute Lymphocyte Count 1.51 X10^3/uL (0.83-4.51); Absolute Neutrophil Count 1.2 X10^3/uL (2.0-7.7); Basophil# 0.02 X10^3/uL; Basophil% 0.6 % (0-1); Eosinophil# 0.11 X10^3/uL; Eosinophils% 3.5 % (0-5); Hematocrit 37.7 % (40-54); Hemoglobin 13.4 g/dL (13.0-16.5); Lymphocyte # 1.51 X10^3/ul (0.83-4.51); Lymphocyte % 47.8 % (19-41); Mean Corp Hgb Conc 35.5 g/dL (32-36); Mean Corpuscular Hgb 29.5 pg (27.0-32.0); Mean Platelet Vol. 9.3 fl (6.2-12.0); Monocyte# 0.32 X10^3/uL; Monocyte% 10.1 % (0-10); NRBC Flagged by Analyzer 0 % (0-5); Neutrophil # 1.19 X10^3/uL (2.7-7.7); Neutrophil % 37.7 % (47-70); Platelet Count 253 K/mm3 (150-450); RBC Distribution Width SD 36.9 fl (35.1-43.9); Red Blood Count 4.54 M/mm3 (4.6-6.2); White Blood Count 3.2 K/mm3 (4.4-11.0)
--- NOTE | 2022-03-27 08:02 | PCM.PN.HOSP ---
Objective Data Objective Data Vital Signs: Vital Signs Temp Pulse Resp BP Pulse Ox 98 F 110 H 18 109/60 97 03/27/22 02:29 03/27/22 03:00 03/27/22 02:29 03/27/22 02:29 03/27/22 02:29 Oxygen Delivery Method Room Air Weight: 168 lb 3.403 oz Body Mass Index (BMI) 20.8 Intake & Output: Intake and Output for Last 24 Hours 03/25/22 03/26/22 03/27/22 23:59 23:59 23:59 Intake Total 2686.67 / 2686.67 3003.33 / 3243.33 1310 / 1310 Output Total 1750 / 1750 Balance 936.67 / 936.67 3003.33 / 3243.33 1310 / 1310 Lab / Micro Data Result Diagrams: 03/27/22 06:35 03/27/22 06:35 Labs: Laboratory Results - last 24 hr 03/26/22 07:06: Sodium 138, Potassium 3.6, Chloride 103, Carbon Dioxide 17.0 L, Anion Gap 18 H, BUN 16, Creatinine 0.72, Estim Creat Clear Calc 173.08, Est GFR (MDRD) Af Amer 175, Est GFR (MDRD) Non-Af 145, BUN/Creatinine Ratio 22.1 H, Glucose 375 H, Calcium 8.6, Total Bilirubin 1.10 H, AST 8 L, ALT 13 L, Alkaline Phosphatase 82, Total Protein 5.6 L, Albumin 2.9 L, Globulin 2.7, Albumin/Globulin Ratio 1.1 03/26/22 07:06: Magnesium 2.0 03/26/22 12:03: POC Glucose 428 H 03/26/22 16:32: POC Glucose 321 H 03/26/22 19:06: D-Dimer Quant (PE/DVT) 0.43 03/26/22 21:52: POC Glucose 312 H 03/26/22 23:30: Sodium 142, Potassium 2.6 L*, Chloride 112 H, Carbon Dioxide 20.0 L, Anion Gap 10, BUN 7, Creatinine 0.64 L, Estim Creat Clear Calc 194.72, Est GFR (MDRD) Af Amer 203, Est GFR (MDRD) Non-Af 167, BUN/Creatinine Ratio 10.9, Glucose 230 H, Calcium 6.9 L 03/26/22 23:30: Acetone Level SMALL H 03/26/22 23:30: Magnesium 1.4 L 03/27/22 06:30: POC Glucose 215 H 03/27/22 06:35: WBC 3.2 L, RBC 4.54 L, Hgb 13.4, Hct 37.7 L, MCV 83.0, MCH 29.5, MCHC 35.5, RDW Std Deviation 36.9, RDW Coeff of Rabia 12.0, Plt Count 253, MPV 9.3, Immature Gran % (Auto) 0.300, Neut % (Auto) 37.7 L, Lymph % (Auto) 47.8 H, [place] % (Auto) 10.1 H, Eos % (Auto) 3.5, Baso % (Auto) 0.6, Absolute Neuts (auto) 1.2 L, Absolute Lymphs (auto) 1.51, Nucleated RBC % 0 Assessment & Plan Assessment/Plan (1) Diabetic ketoacidosis: QUALIFIERS: Diabetes mellitus complication detail: without coma Diabetes mellitus type: type 1 Qualified Code(s): E10.10 - Type 1 diabetes mellitus with ketoacidosis without coma
[2022-03-27 08:04] LABS: AST(SGOT) 10 U/L (15-37); Alanine Aminotransfer ALT/SGPT 13 U/L (16-61); Albumin, Serum 2.9 g/dL (3.2-5.0); Alkaline Phosphatase 79 U/L (45-117); Anion Gap 9 (5-15); BUN 7 mg/dL (7-18); BUN/Creat Ratio 12.8 RATIO (10-20); Calcium,Total 8.8 mg/dL (8.5-10.1); Chloride 107 mmol/L (98-107); Creatinine, Serum 0.55 mg/dL (0.70-1.30); EST Glomerular Filtration Rate 200 mL/min (>60); Est Glom Filt Rate - Afr Amer 242 mL/min (>60); Estimated Creatinine Clearance 229.29 ml/min; Globulin 2.8 g/dL (2.2-4.2); Glucose 219 mg/dL (74-106); Potassium 3.6 mmol/L (3.5-5.1); Protein, Total 5.7 g/dL (6.4-8.2); Sodium Level 140 mmol/L (136-145)
[2022-03-27 09:03] VITALS: BP 117/83; PULSE 91; RESP 18; TEMP 36.6; O2SAT 99
[2022-03-27] MEDS: Insulin Lispro 100 UNIT/ML INSULN.PEN 25 UNIT SC (09:13)
[2022-03-27] MEDS: Insulin Lispro 100 UNIT/ML INSULN.PEN SC (09:13)
[2022-03-27 09:25] LABS: Bedside Glucose 194 mg/dL (74-106)
--- NOTE | 2022-03-27 11:08 | PCM.DC ---
Discharge Instructions Diet Discharge Diet: 1800 Calorie Control Diet Activity Discharge Activity: Return to Normal Activity Dressing / Incision Call your doctor if you observe: Fever of 101 or Higher, Coldness, Increased Pain, Numbness or Tingling, Change in Color, Inability to urinate, Inability to have a bowel movement, Shortness of breath, Dizziness, Fainting spells, Swelling in the ankles, Chest pain, Prolonged hiccupping, Increased palpitations (irregular heartbeat), Calf discomfort and Uncontrolled pain Follow Up Care Test Results: Test results from this visit will be discussed in further detail at your follow-up appointment, if applicable. Discharge Plan Admission Admit Date/Time: 03/23/22 14:52 Primary Reason for Your Visit: DKA Attending Provider: Tha Uribe Primary Care Provider: Tori Butler Consulting Providers: Satish Be ; Tanmay Ferrell ; Pb Momin ; Judie Jay NP ; Kellee Kelly Discharge Orders/Prescriptions Prescriptions: New cephalexin 500 mg tablet 500 mg PO TID Qty: 15 RF: 0 Continued (DME) OneTouch Verio test strips Strip See Rx Instructions .ROUTE .MEDSUPPLY Qty: 200 RF: 6 (DME) pen needle, diabetic [BD Ultra-Fine Lorin Pen Needle] 32 gauge x 5/32 needle See Rx Instructions .ROUTE .MEDSUPPLY Qty: 360 RF: 6 (DME) FreeStyle Niru 14 Day Sensor Kit See Rx Instructions .ROUTE .MEDSUPPLY Qty: 2 RF: 5 insulin lispro 100 unit/mL insulin pen 25 unit SUBCUT TIDCM Qty: 1 RF: 2 Changed Lantus Solostar U-100 Insulin 100 unit/mL (3 mL) insulin pen 45 unit SUBCUT QHS Qty: 3 RF: 2 Referrals / Follow Up: Tori Butler MD [Primary Care Provider] - Within 2 Weeks Disposition Disposition (needs filled in before D/C Order can be placed): Home, Self Care
--- NOTE | 2022-03-27 11:13 | DS.PCM_ITS ---
Providers Date of Admission: 03/23/22 Date of Discharge: 03/27/22 Primary Care Physician: Dr. Tori Butler MD Consultations 03/23/22 16:14 Consult: Machine [employer] / Pulmonary Medicine Routine Consulting Provider: Pulmonary Medicine karis [place] Reason for Consult: DKA EMERGENT Consult: No MD Notified: Yes Date Notified: 03/23/22 Time Notified: 15:00 Method of Notification: Verbal Reason For Visit: DKA Diagnosis Discharge Diagnosis (1) Diabetic ketoacidosis: Status: Acute Code(s): E11.10 - Type 2 diabetes mellitus with ketoacidosis without coma Qualifiers: Diabetes mellitus type: type 1 Diabetes mellitus complication detail: without coma Qualified Code(s): E10.10 - Type 1 diabetes mellitus with ketoacidosis without coma Medications at Discharge Home Medications blood sugar diagnostic #200 ea 09/08/21 pen needle, diabetic 32 gauge x #360 ea 09/08/21 flash glucose sensor #2 ea 10/11/21 Lantus Solostar U-100 Insulin 45 unit SUBCUT QHS #3 ml 03/27/22 cephalexin 500 mg PO TID #15 tab 03/27/22 insulin lispro 25 unit SUBCUT TIDCM #1 ml 03/27/22 potassium chloride 40 meq PO DAILY 3 Days #6 ea 03/27/22 Hospital Course Summary of Care Provided Hospital Course: This is a 21-year-old question gentleman with history of uncontrolled type 1 diabetes, nonadherent to insulin regimen according to his mother was admitted with unresponsive state on the bathroom floor. Blood sugar was running very high per last several days and patient has not been eating for last 4 to 5 days. Patient has leukocytosis, hemoconcentration hemoglobin 10.6 with ABG showing pH 6.71. Bicarb 6 with high anion gap and glucose 786 lactic acidosis 2.9. Patient was further admitted in ICU with diagnosis of recurrent DKA 1. Acute DKA in a known type I DM, likely nonadherent to insulin regiment and diet with bilateral leg cellulitis Continue on Lantus 45 units QHS and premeal short-acting insulin 25 units TID. Patient refill was given. And is recommended. Follow with PCP. 2. Tachycardia, unclear etiology, likely related to dehydration TSH 0.85, magnesium 2.0. Potassium 3.6, sodium 140. Patient was adequately resuscitated. 3. Bilateral feet cellulitis, unclear etiology, improved with IV cefazolin. Discharged on Keflex. Continue to monitor 4. Hypokalemia, replaced. Prescription for potassium supplement given for 3 more days 5. Acute metabolic encephalopathy secondary to DKA, resolved Continue to monitor 6. Noncompliance, chronic, recurrent admissions for acute DKA, complicates patient's long-term management 7. DVT PPx- early ambulation recommended Discharge medication reconciliation done. Discharge follow-up instructions completed. Discharge process discussed with the patient and all questions were answered to patient's satisfaction. Total time spent, exact 35 minutes on discharge meds reconciliation, examination, coordination of care with nurses and ancillary staff, review of im aging and blood test and discussion with the patient on follow-up instructions. Physical Exam Narrative Patient has history of diabetes type 1. Developed diabetes at the age of 14. On long and short acting insulin at home. Patient gets tachycardic with a small amount of exertion. General: Alert, Oriented x3, Cooperative HEENT: Atraumatic, PERRLA, EOMI, Normocephalic Oral: No Gingival or Mucosal Lesions/ Ulcerations Neck: Supple, No JVD, Negative Carotid Bruits Lungs: Air entry diminished in bilateral lung bases. No crepitation/rhonchi Cardiovascular: Regular rate, Regular Rhythm, Normal S1, Normal S2, No murmurs Abdomen: Bowel Sounds Present, Soft, Non Tender, Non-Distended : No renal angle tenderness. No suprapubic tenderness. Extremities: No edema, Capillary Refill Less than 3 Seconds Skin: Bilateral erythema with mild tenderness over legs and feet has improved. Musculoskeletal: No Tenderness to Palpation of Joints or Extremities Neurological: Cranial nerves II-XII grossly intact, DTR 2+/4 and Symmetrical, Neuro grossly intact Psych/Mental Status: Normal Affect, Appropriate Weight / BMI Weight Weight: 168 lb 3.403 oz Body Mass Index (BMI) 20.8 ABG / Lab / Microbiology Data Result Diagrams: 03/27/22 06:35 03/27/22 06:35 Laboratory: Laboratory Results - last 24 hr 03/26/22 07:06: Magnesium 2.0 03/26/22 12:03: POC Glucose 428 H 03/26/22 16:32: POC Glucose 321 H 03/26/22 19:06: D-Dimer Quant (PE/DVT) 0.43 03/26/22 21:52: POC Glucose 312 H 03/26/22 23:30: Sodium 142, Potassium 2.6 L*, Chloride 112 H, Carbon Dioxide 20.0 L, Anion Gap 10, BUN 7, Creatinine 0.64 L, Estim Creat Clear Calc 194.72, Est GFR (MDRD) Af Amer 203, Est GFR (MDRD) Non-Af 167, BUN/Creatinine Ratio 10.9, Glucose 230 H, Calcium 6.9 L 03/26/22 23:30: Acetone Level SMALL H 03/26/22 23:30: Magnesium 1.4 L 03/27/22 06:30: POC Glucose 215 H 03/27/22 06:35: WBC 3.2 L, RBC 4.54 L, Hgb 13.4, Hct 37.7 L, MCV 83.0, MCH 29.5, MCHC 35.5, RDW Std Deviation 36.9, RDW Coeff of Rabia 12.0, Plt Count 253, MPV 9.3, Immature Gran % (Auto) 0.300, Neut % (Auto) 37.7 L, Lymph % (Auto) 47.8 H, [place] % (Auto) 10.1 H, Eos % (Auto) 3.5, Baso % (Auto) 0.6, Absolute Neuts (auto) 1.2 L, Absolute Lymphs (auto) 1.51, Nucleated RBC % 0 03/27/22 06:35: Sodium 140, Potassium 3.6, Chloride 107, Carbon Dioxide 24.0, Anion Gap 9, BUN 7, Creatinine 0.55 L, Estim Creat Clear Calc 229.29, Est GFR (MDRD) Af Amer 242, Est GFR (MDRD) Non-Af 200, BUN/Creatinine Ratio 12.8, Glucose 219 H, Calcium 8.8, Total Bilirubin 0.70, AST 10 L, ALT 13 L, Alkaline Phosphatase 79, Total Protein 5.7 L, Albumin 2.9 L, Globulin 2.8, Albumin/Globulin Ratio 1.0 03/27/22 09:11: POC Glucose 194 H D/C Instructions Discharge Diet: 1800 Calorie Control Diet Call your doctor if you observe: Fever of 101 or Higher, Coldness, Increased Pain, Numbness or Tingling, Change in Color, Inability to urinate, Inability to have a bowel movement, Shortness of breath, Dizziness, Fainting spells, Swelling in the ankles, Chest pain, Prolonged hiccupping, Increased palpitations (irregular heartbeat), Calf discomfort and Uncontrolled pain Meaningful Use Info Meaningful Use Diagnoses (Choose all that apply): None applicable Discharge Plan Admission Admit Date/Time: 03/23/22 14:52 Primary Reason for Your Visit: DKA Attending Provider: Tha Uribe Primary Care Provider: Tori Butler Consulting Providers: Satish Be ; Tanmay Ferrell ; Pb Momin ; Judie Jay [employer] TE[employer]ER ; Kellee Kelly Discharge Orders/Prescriptions Prescriptions: New cephalexin 500 mg tablet 500 mg PO TID Qty: 15 RF: 0 potassium chloride 20 mEq packet 40 meq PO DAILY 3 Days Qty: 6 RF: 0 Continued (DME) OneTouch Verio test strips Strip See Rx Instructions .ROUTE .MEDSUPPLY Qty: 200 RF: 6 (DME) pen needle, diabetic [BD Ultra-Fine Lorin Pen Needle] 32 gauge x 5/32 needle See Rx Instructions .ROUTE .MEDSUPPLY Qty: 360 RF: 6 (DME) FreeStyle Niru 14 Day Sensor Kit See Rx Instructions .ROUTE .MEDSUPPLY Qty: 2 RF: 5 insulin lispro 100 unit/mL insulin pen 25 unit SUBCUT TIDCM Qty: 1 RF: 2 Changed Lantus Solostar U-100 Insulin 100 unit/mL (3 mL) insulin pen 45 unit SUBCUT QHS Qty: 3 RF: 2 Referrals / Follow Up: Tori Butler MD [Primary Care Provider] - Within 2 Weeks Disposition Disposition (needs filled in before D/C Order can be placed): Home, Self Care Charges/Coding Visit Charges Inpatient E&M: 98639 Disch Hosp
--- NOTE | 2022-03-27 11:28 | CASEMGMT ---
Patient is ready for discharge today. VERNON stopped in patient's room. VERNON found the paper with the appointment VERNON made. VERNON showed patient and let him know SW scheduled this appointment and his insurance will transport him. VERNON told patient if he cannot make it to the appointment he absolutely needs to call Dr Galindo's office and notify them. VERNON told patient Dr Galindo's office may not take him back if he does not show up for another appointment. VERNON told him he also needs to cancel the transportation if he cannot make it to the appt. Patient verbalized understanding. Marie KRUGER
--- NOTE | 2022-03-27 11:29 | PHA.DC.MC ---
Pharmacy Service has performed discharge medication reconciliation and counseling for this patient. The patient was counseled on the following discharge medications and changes in medications for homegoing were reviewed. 1. KEFLEX 2. INSULIN -- REVIEWED CHANGES TO REGIMEN The Reason for Use, instructions for use, and potential side effects were reviewed for all new medications. The patient's questions regarding all of their medications were answered. The patient demonstrated some understanding but would benefit from further education and reinforcement. Home Medications blood sugar diagnostic #200 ea 09/08/21 pen needle, diabetic 32 gauge x #360 ea 09/08/21 flash glucose sensor #2 ea 10/11/21 Lantus Solostar U-100 Insulin 45 unit SUBCUT QHS #3 ml 03/27/22 cephalexin 500 mg PO TID #15 tab 03/27/22 insulin lispro 25 unit SUBCUT TIDCM #1 ml 03/27/22 potassium chloride 40 meq PO DAILY 3 Days #6 ea 03/27/22 The patient's discharge medication list was reviewed for discrepancies and discrepancies were resolved.
[2022-03-27 12:00] VITALS: PULSE 108
[2022-03-27 12:50] LABS: Bedside Glucose 97 mg/dL (74-106)
--- NOTE | 2022-03-28 08:31 | CASEMGMT ---
Call received from Paige Ortez Solar Project Engineer. Scar states she received the referral for case management and SW services and will be reaching out to the patient. Pt's phone number provided and hx of multiple readmissions reviewed. Scar can be reached at [phone] for future collaboration if pt is agreeable to participate in the program. Eden Myers RN CM
== END 2022-03-27 14:19 | disposition home or self-care (01) | DRG 420 ==
LOC: ED 14:08 → ICU 15:17 → PCU 03-24 15:59
PROVIDERS: Hospitalist; Internal Medicine; Internal Medicine Critical Care Medicine; Nurse Practitioner; Admitting Provider Internal Medicine; Emergency Provider Emergency Medicine; PCP Pediatrics; Visit Provider Internal Medicine
DX: E10.10 Type 1 diabetes mellitus with ketoacidosis without coma (principal); G93.41 Metabolic encephalopathy; N17.9 Acute kidney failure, unspecified; L03.115 Cellulitis of right lower limb; Z79.4 Long term (current) use of insulin; K21.9 Gastro-esophageal reflux disease without esophagitis; F41.9 Anxiety disorder, unspecified; E87.6 Hypokalemia; E86.0 Dehydration; J45.909 Unspecified asthma, uncomplicated; L03.116 Cellulitis of left lower limb; Z91.14 Patient's other noncompliance with medication regimen
CPT/HCPCS: 36415; 36600; 70450; 71045; 80048; 80053; 80307; 81001; 82009; 82803; 82962; 83605; 83690; 83735; 84443; 85025; 85379; 93005; 97802; 99285; J7030; J7120; P9612; A4216; J0610; J7799

== ENCOUNTER 2022-05-10 12:37 | Inpatient (IN) | payer MEDICAID, SELFPAY ==
[2022-05-10] VITALS (17 sets, daily range): BP systolic 101–131; BP diastolic 57–93; PULSE 89–115; RESP 13–25; TEMP 36.2–36.9; O2SAT 100; BMI 20.5; BMI 19.8
--- NOTE | 2022-05-10 13:02 | EKG12_ITS ---
Test Reason : Blood Pressure : / mmHG Vent. Rate : 105 BPM Atrial Rate : 105 BPM P-R Int : 136 ms QRS Dur : 100 ms QT Int : 386 ms P-R-T Axes : 076 090 062 degrees QTc Int : 510 ms Sinus tachycardia Otherwise normal ECG Confirmed by SHERMAN CASTILLO, KEVIN ([id number]), city editor AYESHA VALLE ([id number]) on 05/11/2022 11:19:46 A M Referred By: MAREK Confirmed By:SUSY WHITAKER MD
--- NOTE | 2022-05-10 13:03 | EDS_ITS ---
HPI History of Present Illness Chief Complaint: Hyperglycemia Informant: patient Onset/Context/Timing Onset: Days Narrative Narrative: Patient presents secondary to shortness of breath. He states he feels a gas to breathe fast. He admits his blood sugars were reading high today and on further questioning he admits he been reading high for the past several days. He believes he is in DKA again. He states he got food poisoning a couple days ago and had vomiting and diarrhea. Those symptoms seem to be improving. 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 Ulcer of leg, chronic Home Medications blood sugar diagnostic (b-datumTouch Verio test strips) #200 ea 09/08/21 [Rx Last Taken Unknown] pen needle, diabetic 32 gauge x 5/32 (BD Ultra-Fine Lorin Pen Needle) #360 ea 09/08/21 [Rx Last Taken Unknown] flash glucose sensor (FreeStyle Niru 14 Day Sensor) #2 ea 10/11/21 [Rx Last Taken Unknown] insulin glargine 100 unit/mL (3 mL) subcutaneous pen (Lantus Solostar U-100 Insulin) 45 unit (0.45 mL) subcut QHS blood sugar #3 mL 03/27/22 [Rx Last Taken Unknown] insulin lispro 100 unit/mL subcutaneous pen 25 unit (0.25 mL) subcut TIDCM blood sugar #1 mL 03/27/22 [Rx Last Taken Unknown] Allergy/AdvReac Type Severity Reaction Status Date / Time Milk Containing Products AdvReac Diarrhea Verified 05/10/22 12:41 Family History Father Polysubstance overdose Patient father young secondary to OD. Mother Iron deficiency anemia Other Asthma CVA (cerebral vascular accident) Diabetes Hypertension Thyroid disorder Surgical History History of surgery on extremity Hx of knee surgery Social History housing: other details: Lives with his grandmother, aunt and mother. Smoking Status: Never smoker alcohol intake: never substance use type: does not use ROS ROS ED Constitutional Constitutional ED: Denies chills or fever(s) Eyes Eyes: Denies change in vision or discharge from eye(s) ENT ENT ED: Denies discharge from eye(s), rhinorrhea or sore throat Cardiovascular Cardiovascular: Denies chest pain or palpitations Respiratory/Chest Respiratory/Chest: Reports dyspnea; Denies cough Gastrointestinal Gastrointestinal: Reports diarrhea, nausea and vomiting; Denies abdominal pain Genitourinary Genitourinary ED: Denies difficulty urinating or dysuria Musculoskeletal Musculoskeletal: Denies back pain or extremity pain Integumentary Denies Abrasions or rash Neurologic Neurologic: Denies headache(s) or weakness Psychiatric Psychiatric: Denies anxiety or depression Endocrine Endocrinology: Reports polydipsia and polyuria Allergic/Immunologic Allergic/Immunologic ED: Denies lip swelling or urticaria EXAM Physical Exam Const Vital Signs: 05/10/22 12:38 05/10/22 12:44 05/10/22 14:03 Temperature 97.8 F Temperature Source Temporal Pulse Rate 115 H 93 Respiratory Rate 25 H 18 Respiratory Effort Normal Non-Labored Respiratory Pattern Kussmaul Blood Pressure 131/93 H 109/68 Blood Pressure Mean 105 81 Pulse Ox 100 100 Oxygen Delivery Method Room Air Room Air Positive well nourished and well developed General Appearance ED: well developed HEENT Reports normocephalic, head/scalp atraumatic and dry mucous membranes Mouth ED: Yes dry mucous membranes Mouth: dry mucous membranes Eyes PERRL and EOMs intact bilaterally Neck supple Chest Wall inspection of chest normal and palpation of chest normal Resp clear to auscultation bilaterally Resp Narrative: Tachypnea Cardio regular rhythm Rate: tachycardic GI non-tender Auscultation: hypoactive bowel sounds Palpation: soft Extremity normal to inspection Neuro oriented x3 and no sensory deficits noted Sensorium / Orientation: alert Motor Exam: strength 5/5 throughout Psych mental status grossly normal Skin no rashes or lesions noted MDM MDM MDM Narrative Medical decision making narrative: Patient ordered 2 L of IV fluid. Lab work obtained. EKG ordered. Lab Data Attestation: I reviewed the patient's lab results. Labs: Laboratory Results - last 24 hr 05/10/22 05/10/22 05/10/22 12:45 12:45 12:45 WBC 7.0 RBC 5.29 Hgb 15.7 Hct 46.4 MCV 87.7 MCH 29.7 MCHC 33.8 RDW Std Deviation 45.0 H RDW Coeff of Rabia 14.2 Plt Count 387 MPV 9.6 Immature Gran % (Auto) 1.100 H Neut % (Auto) 67.0 Lymph % (Auto) 22.2 [place] % (Auto) 7.6 Eos % (Auto) 1.1 Baso % (Auto) 1.0 Absolute Neuts (auto) 4.7 Absolute Lymphs (auto) 1.55 Nucleated RBC % 0 Sodium 136 Potassium 3.1 L Chloride 107 Carbon Dioxide 4.0 L* Anion Gap 25 H BUN 9 Creatinine 1.18 Estim Creat Clear Calc 98.75 Est GFR (MDRD) Af Amer 100 Est GFR (MDRD) Non-Af 83 BUN/Creatinine Ratio 7.6 L Glucose 421 H Calcium 8.2 L Total Bilirubin 0.80 AST 9 L ALT 18 Alkaline Phosphatase 151 H Total Protein 7.2 Albumin 3.8 Globulin 3.4 Albumin/Globulin Ratio 1.1 Urine Color Urine Clarity Urine pH Ur Specific [place] Urine Protein Urine Glucose (UA) Urine Ketones Urine Occult Blood Urine Nitrite Urine Bilirubin Urine Urobilinogen Ur Leukocyte Esterase Urine RBC Urine WBC Ur Squamous Epith Cells Urine Bacteria Urine Mucus Acetone Level MODERATE H 05/10/22 05/10/22 13:10 15:02 WBC RBC Hgb Hct MCV MCH MCHC RDW Std Deviation RDW Coeff of Rabia Plt Count MPV Immature Gran % (Auto) Neut % (Auto) Lymph % (Auto) [place] % (Auto) Eos % (Auto) Baso % (Auto) Absolute Neuts (auto) Absolute Lymphs (auto) Nucleated RBC % Sodium Cancelled Potassium Cancelled Chloride Cancelled Carbon Dioxide Cancelled Anion Gap Cancelled BUN Cancelled Creatinine Cancelled Estim Creat Clear Calc Cancelled Est GFR (MDRD) Af Amer Cancelled Est GFR (MDRD) Non-Af Cancelled BUN/Creatinine Ratio Cancelled Glucose Cancelled Calcium Cancelled Total Bilirubin AST ALT Alkaline Phosphatase Total Protein Albumin Globulin Albumin/Globulin Ratio Urine Color Yellow Urine Clarity Clear Urine pH 6.0 Ur Specific [place] 1.020 Urine Protein 30 H Urine Glucose (UA) 1000 H Urine Ketones 150 A* Urine Occult Blood 10 H Urine Nitrite Negative Urine Bilirubin Negative Urine Urobilinogen Normal Ur Leukocyte Esterase Negative Urine RBC 0 SEEN Urine WBC 0 SEEN Ur Squamous Epith Cells 0 SEEN Urine Bacteria 0 SEEN Urine Mucus 0 SEEN Acetone Level EKG Initial EKG: Attestation: I personally reviewed and interpreted this EKG as follows: Interpretation: Sinus Tachycardia (Sinus tach at 105. No acute ischemia.) Treatment and Re-Evaluation Narrative: Lab work reveals normal white count. Hemoglobin is 15.7. Chemistry studies significant for a potassium of 3.1, bicarb of 4, glucose of 421. Moderate serum acetone is noted. Patient will be started on insulin drip following initial 2 L bolus. I will see with hospitalist regarding admission. Discharge Plan Dx/Rx/DC Orders Clinical Impression: DKA (diabetic ketoacidosis) Disposition Disposition: Acute Care Hospital [facility]
[2022-05-10 13:19] LABS: Bacteria 0 SEEN /hpf (None Seen); Mucous, Urine 0 SEEN /hpf (<or=2+); Red Blood Cells-Urine 0 SEEN /hpf (0-5); Squamous Epithelial Cells - UA 0 SEEN /hpf (0-5); White Blood Cells 0 SEEN /hpf (0-5)
[2022-05-10 13:19] LABS: Absolute Lymphocyte Count 1.55 X10^3/uL (0.83-4.51); Absolute Neutrophil Count 4.7 X10^3/uL (2.0-7.7); Basophil# 0.07 X10^3/uL; Eosinophil# 0.08 X10^3/uL; Eosinophils% 1.1 % (0-5); Hematocrit 46.4 % (40-54); Hemoglobin 15.7 g/dL (13.0-16.5); Lymphocyte # 1.55 X10^3/ul (0.83-4.51); Lymphocyte % 22.2 % (19-41); Mean Corp Hgb Conc 33.8 g/dL (32-36); Mean Corpuscular Hgb 29.7 pg (27.0-32.0); Mean Corpuscular Volume 87.7 fL (80-94); Mean Platelet Vol. 9.6 fl (6.2-12.0); Monocyte# 0.53 X10^3/uL; Monocyte% 7.6 % (0-10); NRBC Flagged by Analyzer 0 % (0-5); Neutrophil # 4.67 X10^3/uL (2.7-7.7); Platelet Count 387 K/mm3 (150-450); RBC Distribution Width CV 14.2 % (11.6-14.6); Red Blood Count 5.29 M/mm3 (4.6-6.2)
[2022-05-10 13:40] LABS: ALB/GLOB Ratio 1.1 RATIO (0.9-2.4); AST(SGOT) 9 U/L (15-37); Alanine Aminotransfer ALT/SGPT 18 U/L (16-61); Albumin, Serum 3.8 g/dL (3.2-5.0); Alkaline Phosphatase 151 U/L (45-117); Anion Gap 25 (5-15); BUN 9 mg/dL (7-18); BUN/Creat Ratio 7.6 RATIO (10-20); Calcium,Total 8.2 mg/dL (8.5-10.1); Chloride 107 mmol/L (98-107); Creatinine, Serum 1.18 mg/dL (0.70-1.30); EST Glomerular Filtration Rate 83 mL/min (>60); Est Glom Filt Rate - Afr Amer 100 mL/min (>60); Estimated Creatinine Clearance 98.75 ml/min; Globulin 3.4 g/dL (2.2-4.2); Glucose 421 mg/dL (74-106); Potassium 3.1 mmol/L (3.5-5.1); Protein, Total 7.2 g/dL (6.4-8.2); Sodium Level 136 mmol/L (136-145)
[2022-05-10 13:43] LABS: Color, Urine Yellow (Yellow); Glucose, Dipstick 1000 mg/dl (Normal); Leukocyte Esterase-Dipstick Negative /ul (Negative); Nitrite-Dipstick Negative (Negative); Occult Blood-Urine 10 /ul (Negative); Protein-Dipstick 30 mg/dl (Negative); Urine Bilirubin Dipstick Negative (Negative); Urine Clarity Clear (Clear); Urine Urobilinogen Normal (Normal)
[2022-05-10 13:55] LABS: Ketone-Dipstick 150 mg/dl (Negative)
[2022-05-10] MEDS: 0.9% Normal Saline 1,000 ML 999 ML IV ×2 (14:02→14:23)
[2022-05-10 14:10] LABS: Bedside Glucose 275 mg/dL (74-106)
[2022-05-10] MEDS: Dextrose 5%/0.9% NaCl 1,000 ML 150 ML IV ×2 (14:53→21:46)
[2022-05-10 15:01] LABS: Blood Gas Specimen Type VEN; VBG BASE EXCESS -23 mmol/L (-1.0-3.5); VBG Bicarbonate 6 mmol/L (22-26); VBG PO2 163 mmHg (25-40); VBG SO2 99 % (50-70); VBG TCO2 7 mmol/L (23-33); VBG pH 7.15 (7.32-7.42)
[2022-05-10 15:01] LABS: Bedside Glucose 180 mg/dL (74-106)
[2022-05-10 15:50] LABS: Bedside Glucose 176 mg/dL (74-106)
[2022-05-10] MEDS: Potassium Chloride 10mEq/100mL 10 MEQ/100 ML IV.SOLN. 100 MEQ IV BOLUS ×4 (16:15→19:33)
[2022-05-10 16:17] LABS: Hemoglobin A1c < 3.8 % (3.8-5.6)
--- NOTE | 2022-05-10 16:47 | PCM.HP.STD ---
HPI - General General Date of Admission: 05/10/22 Date of Service: 05/10/22 Chief Complaint: Shortness of breath HPI Narrative SHIRA STEPHENSON, is a 21 M who presented to the emergency department [facility] on 05/10/2022 with shortness of breath and nausea and vomiting. The patient indicated on presentation he felt like he had to gasp to breathe. He admitted that his blood sugars had been running high and that his blood sugars have been running high for several days. He inconsistently takes his insulin on on a regular basis and he indicated on admission he felt like he was probably in DKA. The patient indicated he had food poisoning a couple days ago and had vomiting and diarrhea but those symptoms have since resolved other than some intermittent nausea and vomiting. He has had no associated sick contacts and was well up until this morning. He indicates he had seen Dr. Galindo in the past but was fired for noncompliance. He has no current dynamic balancer. He indicates he is compliant with a diabetic diet however reviewing previous hospitalizations and blood sugars I anticipate there were ongoing issues with compliance. The patient has a known long history of uncontrolled type 1 diabetes. In the emergency department upon presentation his temperature was 97.8, heart rate 115, blood pressure 113/93, respiratory rate 25, and pulse ox was 100% on room air. His CBC was unremarkable. A venous blood gas drawn after he was treated with IV fluids and an insulin drip was started showed a pH of 7.15. His BMP showed mild hypokalemia with a potassium of 3.1 a serum bicarb of 4 and anion gap of 25 a mildly elevated serum creatinine from baseline at 1.18 with a baseline of 0.55-0.65. His serum blood sugar was 421. His liver enzymes were normal. His UA showed glucose urea, microalbuminuria, 150 ketones but no signs of infection and his acetone level was moderate. In the emergency department the patient was given boluses of IV fluids and placed on an insulin drip. His blood sugar had decreased to 275 just with IV fluids and the patient was started on dextrose with his insulin drip. [facility] Medical History Asthma Diabetes mellitus type 1 Diabetic ketoacidosis associated with type 1 diabetes mellitus femur surgery GERD (gastroesophageal reflux disease) Nausea and vomiting Non-smoker Noncompliance Nonhealing surgical wound Psychosocial problem Sinus tachycardia seen on alarm security or surveillance monitor Ulcer of leg, chronic Home Medications blood sugar diagnostic (OneTouch Verio test strips) #200 ea 09/08/21 [Rx Last Taken Unknown] pen needle, diabetic 32 gauge x 5/32 (BD Ultra-Fine Lorin Pen Needle) #360 ea 09/08/21 [Rx Last Taken Unknown] flash glucose sensor (FreeStyle Niru 14 Day Sensor) #2 ea 10/11/21 [Rx Last Taken Unknown] insulin glargine 100 unit/mL (3 mL) subcutaneous pen (Lantus Solostar U-100 Insulin) 45 unit (0.45 mL) subcut QHS blood sugar #3 mL 03/27/22 [Rx Last Taken 05/09/22] insulin lispro 100 unit/mL subcutaneous pen 25 unit (0.25 mL) subcut TIDCM blood sugar #1 mL 03/27/22 [Rx Last Taken 05/10/22] Allergy/AdvReac Type Severity Reaction Status Date / Time Milk Containing Products AdvReac Diarrhea Verified 05/10/22 12:41 Family History Father Polysubstance overdose Patient father young secondary to OD. Mother Iron deficiency anemia Other Asthma CVA (cerebral vascular accident) Diabetes Hypertension Thyroid disorder Surgical History History of surgery on extremity Hx of knee surgery Social History (Updated 05/10/22 @ 17:[address] Elizabeth Alvarez DO) housing: other details: Lives with his grandmother, aunt and mother. Smoking Status: Never smoker alcohol intake: current alcohol intake frequency: a few times a month substance use type: does not use ROS Constitutional Constitutional: Reports anorexia, malaise and weakness; Denies change in weight, chills, fatigue, fever(s), night sweats or other Eyes Eyes: Reports blurry vision; Denies change in eye color, change in vision, discharge from eye(s), double vision, erythema, eye pain, loss of vision or other ENT HEENT: Denies abnormal hearing, dysphagia, ear pain, epistaxis, headache(s), hearing loss, nasal congestion, nasal discharge, post nasal drip, sinus pressure, sore throat or other Cardiovascular Cardiovascular: Denies chest pain, claudication, dyspnea on exertion, edema, lightheadedness, orthopnea, palpitations, paroxysmal nocturnal dyspnea, rapid heart rate, syncope or other Respiratory/Chest Respiratory/Chest: Reports shortness of breath at rest; Denies cough, dyspnea, excessive phlegm production, hemoptysis, productive cough, shortness of breath with exertion, wheezing or other Gastrointestinal Gastrointestinal: Reports nausea and vomiting; Denies abdominal pain, coffee ground emesis, constipation, diarrhea, dyspepsia, hematemesis, hematochezia, loose stools, melena or other Genitourinary Genitourinary: Denies burning urination, difficulty urinating, dysuria, hematuria, nocturia, urinary frequency, urinary hesitancy, urinary incontinence, urinary urgency or other Musculoskeletal Musculoskeletal: Denies arthralgias, back pain, joint pain, joint stiffness, joint swelling, myalgias, neck pain or other Neurologic Neurologic: Denies abnormal gait, abnormal speech, confusion, disequilibrium, dizziness, focal weakness, headache(s), numbness, paresthesias, seizure-like activity, seizures, syncope, tingling, tremor(s) or other Psychiatric Psychiatric: Denies anxiety, depression, homicidal ideation, suicidal ideation or other Endocrine Endocrinology: Reports polydipsia and polyuria; Denies change in body appearance, cold intolerance, excessive sweating, heat intolerance or other Hematologic/Lymphatic Hematologic/Lymphatic: Denies anemia, easy bleeding, easy bruising, lymphadenopathy or other Allergic/Immunologic Allergic/Immunologic: Denies rhinitis, hives, eczemia, asthma or other Vital Signs Vital Signs Vital Signs: 05/10/22 12:38 05/10/22 12:44 05/10/22 14:03 Temperature 97.8 F Temperature Source Temporal Pulse Rate 115 H 93 Respiratory Rate 25 H 18 Respiratory Effort Normal Non-Labored Respiratory Pattern Sylviamaricky Blood Pressure 131/93 H 109/68 Blood Pressure Mean 105 81 Blood Pressure Source Blood Pressure Position Blood Pressure Location Pulse Ox 100 100 Oxygen Delivery Method Room Air Room Air 05/10/22 14:35 05/10/22 15:00 05/10/22 15:45 Temperature 98 F 97.1 F L Temperature Source Temporal Temporal Pulse Rate 91 89 106 H Respiratory Rate 14 15 20 H Respiratory Effort Respiratory Pattern Blood Pressure 108/74 114/76 110/79 Blood Pressure Mean 85 88 89 Blood Pressure Source Monitor Blood Pressure Position Semi-Fowlers Blood Pressure Location Right Arm Pulse Ox 100 100 100 Oxygen Delivery Method Room Air Room Air Room Air 05/10/22 16:00 Temperature Temperature Source Pulse Rate 98 Respiratory Rate Respiratory Effort Respiratory Pattern Blood Pressure Blood Pressure Mean Blood Pressure Source Blood Pressure Position Blood Pressure Location Pulse Ox Oxygen Delivery Method Weight Weight: 68.4 kg Body Mass Index (BMI) 19.8 Physical Exam Const alert and oriented x3 Constitutional Narrative: Young white male sitting up in bed, mother at bedside, patient appears ill HEENT normocephalic, head/scalp atraumatic and hearing grossly normal bilaterally HEENT Narrative: Extremely poor dentition, Mallampati 1, no thrush, mucous membranes are dry Eyes PERRL, EOMs intact bilaterally and conjunctivae normal Eyes Narrative: No scleral icterus Neck no lymphadenopathy, supple, no JVD and no carotid bruits Neck Narrative: Trachea midline, no thyroid enlargement Resp no retractions, no use of accessory muscles and clear to auscultation bilaterally Resp Narrative: Tachypnea without respiratory extremis Auscultation: Negative for crackles, rales, rhonchi or wheezes Cardio regular rhythm, S1 normal heart sound, S2 normal heart sound, no murmurs, no rub, no gallops, no clicks and no JVD Cardio Narrative: Mild tachycardia GI normal to inspection, nondistended, normoactive bowel sounds, soft to palpation, non-tender and non-distended; Negative for hepatosplenomegaly Extremity no clubbing, cyanosis or edema Extremity Narrative: 2+ pedal pulses-decreased lean muscle mass Skin no rashes or lesions noted, no wounds, skin turgor normal, no jaundice, no petechiae and no mottling General Skin Exam: no breakdown Hair: other Dyed pink Neuro oriented x3, CN's II-XII intact bilaterally, moves all extremities and no focal motor deficits Sensorium / Orientation: awake, alert, oriented to person, oriented to place and oriented to time Speech: speech normal Motor Exam: strength 5/5 throughout Psych Psych Narrative: Affect is flat mood seems depressed Mood & Affect: depressed Results Lab / Micro Data Result Diagrams: 05/10/22 12:45 05/10/22 12:45 Labs: Laboratory Results - last 24 hr 05/10/22 12:45: WBC 7.0, RBC 5.29, Hgb 15.7, Hct 46.4, MCV 87.7, MCH 29.7, MCHC 33.8, RDW Std Deviation 45.0 H, RDW Coeff of Rabia 14.2, Plt Count 387, MPV 9.6, Immature Gran % (Auto) 1.100 H, Neut % (Auto) 67.0, Lymph % (Auto) 22.2, [place] % (Auto) 7.6, Eos % (Auto) 1.1, Baso % (Auto) 1.0, Absolute Neuts (auto) 4.7, Absolute Lymphs (auto) 1.55, Nucleated RBC % 0 05/10/22 12:45: Sodium 136, Potassium 3.1 L, Chloride 107, Carbon Dioxide 4.0 L*, Anion Gap 25 H, BUN 9, Creatinine 1.18, Estim Creat Clear Calc 98.75, Est GFR (MDRD) Af Amer 100, Est GFR (MDRD) Non-Af 83, BUN/Creatinine Ratio 7.6 L, Glucose 421 H, Calcium 8.2 L, Total Bilirubin 0.80, AST 9 L, ALT 18, Alkaline Phosphatase 151 H, Total Protein 7.2, Albumin 3.8, Globulin 3.4, Albumin/Globulin Ratio 1.1 05/10/22 12:45: Acetone Level MODERATE H 05/10/22 12:45: Hemoglobin A1c < 3.8 L 05/10/22 13:10: Urine Color Yellow, Urine Clarity Clear, Urine pH 6.0, Ur Specific [place] 1.020, Urine Protein 30 H, Urine Glucose (UA) 1000 H, Urine Ketones 150 A*, Urine Occult Blood 10 H, Urine Nitrite Negative, Urine Bilirubin Negative, Urine Urobilinogen Normal, Ur Leukocyte Esterase Negative, Urine RBC 0 SEEN, Urine WBC 0 SEEN, Ur Squamous Epith Cells 0 SEEN, Urine Bacteria 0 SEEN, Urine Mucus 0 SEEN 05/10/22 13:59: POC Glucose 275 H 05/10/22 14:46: POC Glucose 180 H 05/10/22 15:02: Sodium Cancelled, Potassium Cancelled, Chloride Cancelled, Carbon Dioxide Cancelled, Anion Gap Cancelled, BUN Cancelled, Creatinine Cancelled, Estim Creat Clear Calc Cancelled, Est GFR (MDRD) Af Amer Cancelled, Est GFR (MDRD) Non-Af Cancelled, BUN/Creatinine Ratio Cancelled, Glucose Cancelled, Calcium Cancelled 05/10/22 15:47: POC Glucose 176 H ABG Data ABG results: ABG 05/10/22 14:56 Specimen Type MARILYNN VBG pH 7.15 L* VBG pO2 163 H VBG HCO3 6 L VBG Total CO2 7 L VBG O2 Sat (Calc) 99 H VBG Base Excess -23 L POC Mix VBG pCO2 Pt Tmp 17.0 L* Crit Call To/Read Back Yes Blood Gas Notified Whom ANTONINA Blood Gas Notified Time 14:58:12 Assessment & Plan Assessment/Plan (1) DKA (diabetic ketoacidosis): (2) Dehydration: (3) Noncompliance: (4) High anion gap metabolic acidosis: (5) Hypokalemia: PLAN: Plan Diabetic ketoacidosis -Secondary to medication noncompliance -Aggressive hydration -DKA protocol -Serial labs with BMP/mag/phosphorus -N.p.o. DM-1 uncontrolled -Patient noncompliant does not follow regularly with anyone for his diabetes -Check hemoglobin A1c -Refer to endocrinology as an outpatient -Discussed the deleterious effects of long-term uncontrolled blood sugars -Patient with frequent DKA admissions Anion gap metabolic acidosis -Secondary to DKA -Should improve as DKA resolves Hypokalemia -Given the severity of acidosis on admission I suspect the patient has a marked depletion of potassium stores -Patient's mother states that he is to be on potassium home but is noncompliant -With his acidosis I would expect him to be hyperkalemic with extracellular potassium shifts secondary to acidosis -40 mill equivalent IV bolus -Serial potassiums -Placement protocol Dehydration -Baseline serum creatinine is 0.55-0.65 -Creatinine on admission 1.13 -IV fluids as ordered above -Recheck with serial lab DVT prophylaxis -Lovenox -SCDs CODE STATUS -full code Critical care time greater than 35 minutes excluding procedures Charges/Coding Procedures Hospitalists Procedures: 28376 Critial Care 1st Hr
[2022-05-10 17:01] LABS: Bedside Glucose 154 mg/dL (74-106)
[2022-05-10 17:22] LABS: Anion Gap 15 (5-15); BUN 7 mg/dL (7-18); BUN/Creat Ratio 8.1 RATIO (10-20); Calcium,Total 8.3 mg/dL (8.5-10.1); Chloride 116 mmol/L (98-107); Creatinine, Serum 0.86 mg/dL (0.70-1.30); EST Glomerular Filtration Rate 119 mL/min (>60); Est Glom Filt Rate - Afr Amer 144 mL/min (>60); Estimated Creatinine Clearance 131.45 ml/min; Glucose 147 mg/dL (74-106); Magnesium 1.7 mg/dL (1.6-2.6); Potassium 2.8 mmol/L (3.5-5.1); Sodium Level 140 mmol/L (136-145)
[2022-05-10 17:24] LABS: Phosphorus 0.8 mg/dL (2.5-4.9)
[2022-05-10 17:55] LABS: Bedside Glucose 118 mg/dL (74-106)
[2022-05-10] MEDS: Magnesium Sulfate 4gm/100mL 4 GM/100 ML IV.SOLN. IV (18:23)
[2022-05-10 19:01] LABS: Bedside Glucose 117 mg/dL (74-106)
[2022-05-10] MEDS: Ondansetron 4 MG/2 ML Vial IV (20:09)
[2022-05-10 20:25] LABS: Bedside Glucose 145 mg/dL (74-106)
[2022-05-10 21:11] LABS: Bedside Glucose 173 mg/dL (74-106)
[2022-05-10 22:10] LABS: Bedside Glucose 182 mg/dL (74-106)
[2022-05-10 22:11] LABS: Magnesium 3.1 mg/dL (1.6-2.6); Phosphorus 2.1 mg/dL (2.5-4.9)
[2022-05-10 22:15] LABS: Anion Gap 12 (5-15); BUN 7 mg/dL (7-18); BUN/Creat Ratio 8.5 RATIO (10-20); Calcium,Total 7.9 mg/dL (8.5-10.1); Chloride 119 mmol/L (98-107); Creatinine, Serum 0.83 mg/dL (0.70-1.30); EST Glomerular Filtration Rate 124 mL/min (>60); Est Glom Filt Rate - Afr Amer 150 mL/min (>60); Glucose 215 mg/dL (74-106); Potassium 3.6 mmol/L (3.5-5.1); Sodium Level 142 mmol/L (136-145)
[2022-05-10 23:31] LABS: Bedside Glucose 213 mg/dL (74-106)
[2022-05-11] VITALS (20 sets, daily range): BP systolic 93–121; BP diastolic 49–86; PULSE 86–124; RESP 12–20; TEMP 36.5–37.2; O2SAT 96–100
[2022-05-11] MEDS: Dext 5%-0.45% NS 1,000 ML 150 ML IV
[2022-05-11 00:31] LABS: Bedside Glucose 274 mg/dL (74-106)
[2022-05-11 01:15] LABS: Bedside Glucose 230 mg/dL (74-106)
[2022-05-11 01:32] LABS: Anion Gap 12 (5-15); BUN 8 mg/dL (7-18); BUN/Creat Ratio 9.3 RATIO (10-20); Calcium,Total 7.5 mg/dL (8.5-10.1); Chloride 119 mmol/L (98-107); Creatinine, Serum 0.86 mg/dL (0.70-1.30); EST Glomerular Filtration Rate 119 mL/min (>60); Est Glom Filt Rate - Afr Amer 143 mL/min (>60); Estimated Creatinine Clearance 131.45 ml/min; Glucose 242 mg/dL (74-106); Magnesium 2.2 mg/dL (1.6-2.6); Sodium Level 143 mmol/L (136-145)
[2022-05-11 01:43] LABS: Phosphorus 2.2 mg/dL (2.5-4.9)
[2022-05-11 02:16] LABS: Bedside Glucose 175 mg/dL (74-106)
[2022-05-11] MEDS: Sodium Bicarbonate 8.4% 50 ML Syringe 50 MEQ IV (02:33)
[2022-05-11] MEDS: Calcium Gluconate 1 GM/10 ML Vial IVP (02:39)
[2022-05-11] MEDS: Potassium Chloride 10mEq/100mL 10 MEQ/100 ML IV.SOLN. 100 MEQ IV BOLUS ×4 (02:41→08:50)
[2022-05-11 03:41] LABS: Bedside Glucose 146 mg/dL (74-106)
[2022-05-11 04:21] LABS: Bedside Glucose 132 mg/dL (74-106)
[2022-05-11 05:41] LABS: Bedside Glucose 97 mg/dL (74-106)
[2022-05-11 05:45] LABS: Absolute Lymphocyte Count 1.15 X10^3/uL (0.83-4.51); Absolute Neutrophil Count 2.6 X10^3/uL (2.0-7.7); Basophil# 0.02 X10^3/uL; Basophil% 0.4 % (0-1); Eosinophils% 2.2 % (0-5); Hematocrit 38.8 % (40-54); Hemoglobin 13.8 g/dL (13.0-16.5); Lymphocyte # 1.15 X10^3/ul (0.83-4.51); Lymphocyte % 24.7 % (19-41); Mean Corp Hgb Conc 35.6 g/dL (32-36); Mean Corpuscular Hgb 29.5 pg (27.0-32.0); Mean Corpuscular Volume 82.9 fL (80-94); Mean Platelet Vol. 9.1 fl (6.2-12.0); Monocyte# 0.76 X10^3/uL; Monocyte% 16.3 % (0-10); NRBC Flagged by Analyzer 0 % (0-5); Platelet Count 273 K/mm3 (150-450); RBC Distribution Width CV 14.7 % (11.6-14.6); RBC Distribution Width SD 43.8 fl (35.1-43.9); Red Blood Count 4.68 M/mm3 (4.6-6.2); White Blood Count 4.7 K/mm3 (4.4-11.0)
--- NOTE | 2022-05-11 05:55 | EX.PCM.CONCC ---
Assessment & Plan Assessment/Plan (1) DKA (diabetic ketoacidosis): PLAN: Plan RECOMMENDATIONS: 1. Provide additional LR fluid boluses. 2. Continue supplemental IV fluid hydration as ordered. 3. Continue insulin infusion until anion gap has been closed x2. 4. Aggressive electrolyte repletion. 5. Encourage incentive spirometer use while in bed and mobilize patient as tolerated. IMPRESSIONS: 1. Diabetic ketoacidosis Secondary to outpatient noncompliance with prescribed medical therapy. This is a recurrent issue for the patient leading to frequent hospitalizations. He has been released from his prior endocrinology practice due to noncompliance. Plan to manage DKA per protocol with aggressive supplemental IV fluid hydration, continuous insulin infusion and aggressive electrolyte repletion. The patient will remain on a continuous insulin infusion until anion gap has been closed x2. He will remain n.p.o. for now. 2. Anion gap metabolic acidosis/hypokalemia Secondary to presenting DKA. Management as noted above with aggressive electrolyte repletion as ordered. 3. History of medical noncompliance leading to frequent hospitalizations Complicates care, management, recovery and prognosis. Case management and social work to assist with any barriers to outpatient resources the patient may ultimately require. This note was generated with [employer] dictation software. It may contain incorrect words, spelling, and punctuation that were not noted in checking the note before signing. HPI Consult Data Date of Consult: 05/11/22 HPI Narrative Reason for Consultation: Diabetic ketoacidosis HPI Narrative: The patient is a 21-year-old male, with a history as outlined below, who presented to the emergency department via EMS on May 10 with shortness of breath, nausea and vomiting. The patient has a known history of diabetes mellitus with medical noncompliance and frequent hospitalizations. In fact, the patient was admitted to the hospital last month under similar circumstances with diabetic ketoacidosis. The patient was previously being managed by Dr. Galindo of endocrinology but was released from the practice due to medical noncompliance. 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 In addition, he does not currently have a primary care provider. On presentation to the emergency department, the patient was noted to be afebrile but was tachycardic and tachypneic. He was maintaining appropriate oxygen saturations on room air. Laboratory evaluation revealed no evidence of a leukocytosis. Chemistry profile was notable for a potassium of 3.1, bicarbonate of 4.0, anion gap of 25 and creatinine of 1.18. Glucose was elevated at 421. Phosphorus was low at 0.8. Moderate serum acetone was noted. The patient was previously noted to have a hemoglobin A1c of 12 in November 2021. The patient received supplemental IV fluid hydration and was started on a continuous insulin infusion. The patient was then admitted to the medical intensive care unit for further management. 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 Ulcer of leg, chronic Home Medications blood sugar diagnostic (OneTouch Verio test strips) #200 ea 09/08/21 [Rx Last Taken Unknown] pen needle, diabetic 32 gauge x 5/32 (BD Ultra-Fine Lorin Pen Needle) #360 ea 09/08/21 [Rx Last Taken Unknown] flash glucose sensor (FreeStyle Niru 14 Day Sensor) #2 ea 10/11/21 [Rx Last Taken Unknown] insulin glargine 100 unit/mL (3 mL) subcutaneous pen (Lantus Solostar U-100 Insulin) 45 unit (0.45 mL) subcut QHS blood sugar #3 mL 03/27/22 [Rx Last Taken 05/09/22] insulin lispro 100 unit/mL subcutaneous pen 25 unit (0.25 mL) subcut TIDCM blood sugar #1 mL 03/27/22 [Rx Last Taken 05/10/22] Allergy/AdvReac Type Severity Reaction Status Date / Time Milk Containing Products AdvReac Diarrhea Verified 05/10/22 12:41 Family History Father Polysubstance overdose Patient father young secondary to OD. Mother Iron deficiency anemia Other Asthma CVA (cerebral vascular accident) Diabetes Hypertension Thyroid disorder Surgical History History of surgery on extremity Hx of knee surgery Social History (Updated 05/10/22 @ 17:[address] Elizabeth Alvarez DO) housing: other details: Lives with his grandmother, aunt and mother. Smoking Status: Never smoker alcohol intake: current alcohol intake frequency: a few times a month substance use type: does not use ROS Constitutional Constitutional: Reports fatigue and weakness Eyes Eyes: Denies blurry vision or change in vision ENT HEENT: Denies dizziness, dysphagia, epistaxis or headache(s) Cardiovascular Cardiovascular: Reports dyspnea; Denies chest pain Respiratory/Chest Respiratory/Chest: Reports dyspnea; Denies chest tightness or wheezing Gastrointestinal Gastrointestinal: Reports abdominal pain, nausea and vomiting Genitourinary Genitourinary: Denies difficulty urinating or dysuria Musculoskeletal Musculoskeletal: Denies arthralgias or back pain Integumentary Integumentary: Denies lesions, rash or skin ulcer Neurologic Neurologic: Denies abnormal gait or abnormal speech Psychiatric Psychiatric: Denies anxiety or depression Endocrine Endocrinology: Reports fatigue Hematologic/Lymphatic Hematologic/Lymphatic: Denies easy bleeding or easy bruising Physical Exam Const alert and no apparent distress General Appearance: cooperative and ill appearing HEENT normocephalic and head/scalp atraumatic Teeth and Gingiva: poor dentition Eyes PERRL, EOMs intact bilaterally and conjunctivae normal Neck supple General: trachea midline Chest inspection of chest normal Resp normal respiratory effort Auscultation: Negative for rales, rhonchi or wheezes Cardio regular rate and regular rhythm GI normal to inspection, nondistended, normoactive bowel sounds Extremity no clubbing, cyanosis or edema Skin no rashes or lesions noted Neuro CN's II-XII intact bilaterally, moves all extremities and no focal motor deficits Psych Mood & Affect: flat affect Lab / Micro Data Result Diagrams: 05/11/22 05:30 05/11/22 05:30 Labs: Laboratory Results - last 24 hr 05/10/22 12:45: WBC 7.0, RBC 5.29, Hgb 15.7, Hct 46.4, MCV 87.7, MCH 29.7, MCHC 33.8, RDW Std Deviation 45.0 H, RDW Coeff of Rabia 14.2, Plt Count 387, MPV 9.6, Immature Gran % (Auto) 1.100 H, Neut % (Auto) 67.0, Lymph % (Auto) 22.2, [place] % (Auto) 7.6, Eos % (Auto) 1.1, Baso % (Auto) 1.0, Absolute Neuts (auto) 4.7, Absolute Lymphs (auto) 1.55, Nucleated RBC % 0 05/10/22 12:45: Sodium 136, Potassium 3.1 L, Chloride 107, Carbon Dioxide 4.0 L*, Anion Gap 25 H, BUN 9, Creatinine 1.18, Estim Creat Clear Calc 98.75, Est GFR (MDRD) Af Amer 100, Est GFR (MDRD) Non-Af 83, BUN/Creatinine Ratio 7.6 L, Glucose 421 H, Calcium 8.2 L, Total Bilirubin 0.80, AST 9 L, ALT 18, Alkaline Phosphatase 151 H, Total Protein 7.2, Albumin 3.8, Globulin 3.4, Albumin/Globulin Ratio 1.1 05/10/22 12:45: Acetone Level MODERATE H 05/10/22 12:45: Hemoglobin A1c < 3.8 L 05/10/22 13:10: Urine Color Yellow, Urine Clarity Clear, Urine pH 6.0, Ur Specific [place] 1.020, Urine Protein 30 H, Urine Glucose (UA) 1000 H, Urine Ketones 150 A*, Urine Occult Blood 10 H, Urine Nitrite Negative, Urine Bilirubin Negative, Urine Urobilinogen Normal, Ur Leukocyte Esterase Negative, Urine RBC 0 SEEN, Urine WBC 0 SEEN, Ur Squamous Epith Cells 0 SEEN, Urine Bacteria 0 SEEN, Urine Mucus 0 SEEN 05/10/22 13:59: POC Glucose 275 H 05/10/22 14:46: POC Glucose 180 H 05/10/22 15:02: Sodium Cancelled, Potassium Cancelled, Chloride Cancelled, Carbon Dioxide Cancelled, Anion Gap Cancelled, BUN Cancelled, Creatinine Cancelled, Estim Creat Clear Calc Cancelled, Est GFR (MDRD) Af Amer Cancelled, Est GFR (MDRD) Non-Af Cancelled, BUN/Creatinine Ratio Cancelled, Glucose Cancelled, Calcium Cancelled 05/10/22 15:47: POC Glucose 176 H 05/10/22 16:53: POC Glucose 154 H 05/10/22 16:55: Sodium 140, Potassium 2.8 L, Chloride 116 H, Carbon Dioxide 9.0 L*, Anion Gap 15, BUN 7, Creatinine 0.86, Estim Creat Clear Calc 131.45, Est GFR (MDRD) Af Amer 144, Est GFR (MDRD) Non-Af 119, BUN/Creatinine Ratio 8.1 L, Glucose 147 H, Calcium 8.3 L 05/10/22 16:55: Phosphorus 0.8 L*, Magnesium 1.7 05/10/22 17:50: POC Glucose 118 H 05/10/22 18:54: POC Glucose 117 H 05/10/22 20:00: POC Glucose 145 H 05/10/22 21:07: POC Glucose 173 H 05/10/22 21:12: Sodium 142, Potassium 3.6, Chloride 119 H, Carbon Dioxide 11.0 L, Anion Gap 12, BUN 7, Creatinine 0.83, Estim Creat Clear Calc 136.20, Est GFR (MDRD) Af Amer 150, Est GFR (MDRD) Non-Af 124, BUN/Creatinine Ratio 8.5 L, Glucose 215 H, Calcium 7.9 L 05/10/22 21:12: Phosphorus 2.1 L, Magnesium 3.1 H 05/10/22 22:03: POC Glucose 182 H 05/10/22 23:20: POC Glucose 213 H 05/11/22 00:14: POC Glucose 274 H 05/11/22 01:04: POC Glucose 230 H 05/11/22 01:05: Sodium 143, Potassium 3.0 L, Chloride 119 H, Carbon Dioxide 12.0 L, Anion Gap 12, BUN 8, Creatinine 0.86, Estim Creat Clear Calc 131.45, Est GFR (MDRD) Af Amer 143, Est GFR (MDRD) Non-Af 119, BUN/Creatinine Ratio 9.3 L, Glucose 242 H, Calcium 7.5 L, Magnesium 2.2 05/11/22 01:05: Phosphorus 2.2 L 05/11/22 02:06: POC Glucose 175 H 05/11/22 03:27: POC Glucose 146 H 05/11/22 04:12: POC Glucose 132 H 05/11/22 05:21: POC Glucose 97 05/11/22 05:30: WBC 4.7, RBC 4.68, Hgb 13.8, Hct 38.8 L, MCV 82.9 D, MCH 29.5, MCHC 35.6 D, RDW Std Deviation 43.8, RDW Coeff of Rabia 14.7 H, Plt Count 273, MPV 9.1, Immature Gran % (Auto) 0.400, Neut % (Auto) 56.0, Lymph % (Auto) 24.7, [place] % (Auto) 16.3 H, Eos % (Auto) 2.2, Baso % (Auto) 0.4, Absolute Neuts (auto) 2.6, Absolute Lymphs (auto) 1.15, Nucleated RBC % 0 ABG Data ABG results: ABG 05/10/22 14:56 Specimen Type MARILYNN VBG pH 7.15 L* VBG pO2 163 H VBG HCO3 6 L VBG Total CO2 7 L VBG O2 Sat (Calc) 99 H VBG Base Excess -23 L POC Mix VBG pCO2 Pt Tmp 17.0 L* Crit Call To/Read Back Yes Blood Gas Notified Whom ANTONINA Blood Gas Notified Time 14:58:12 Charges/Coding Visit Charges Inpatient E&M: 86021 Init Hosp L3
[2022-05-11 06:09] LABS: Anion Gap 7 (5-15); BUN 7 mg/dL (7-18); BUN/Creat Ratio 9.1 RATIO (10-20); Calcium,Total 8.3 mg/dL (8.5-10.1); Chloride 118 mmol/L (98-107); Creatinine, Serum 0.77 mg/dL (0.70-1.30); EST Glomerular Filtration Rate 136 mL/min (>60); Est Glom Filt Rate - Afr Amer 164 mL/min (>60); Estimated Creatinine Clearance 150.04 ml/min; Glucose 114 mg/dL (74-106); Magnesium 2.4 mg/dL (1.6-2.6); Potassium 3.2 mmol/L (3.5-5.1); Sodium Level 142 mmol/L (136-145); Thyroid Stim Hormone (TSH) 1.68 uIU/mL (0.358-3.74)
[2022-05-11 06:14] LABS: Phosphorus 1.9 mg/dL (2.5-4.9)
[2022-05-11] MEDS: Lactated Ringers 1,000 ML 999 ML IV ×2 (06:20→07:43)
[2022-05-11 06:36] LABS: Bedside Glucose 106 mg/dL (74-106)
[2022-05-11 07:10] LABS: Bedside Glucose 99 mg/dL (74-106)
[2022-05-11 08:05] LABS: Hemoglobin A1c 12.2 % (3.8-5.6)
[2022-05-11] MEDS: Insulin NPH Human 100 UNITS/ML PEN 22 UNITS SC (08:21)
[2022-05-11 08:40] LABS: Bedside Glucose 75 mg/dL (74-106)
[2022-05-11] MEDS: Enoxaparin 40 MG/0.4 ML Syringe SC (10:02)
--- NOTE | 2022-05-11 10:05 | CASEMGMT ---
Addendum entered by Maddi Reyna 05/12/22 08:32: Late entry for 05/11/22: E-mail sent to [facility] Pt Link w/referral. Addendum entered by Maddi Reyna 05/11/22 17:13: Call to Dr Galindo's office. They stated no information was available re: the appt for 04/20 and they are not sure if pt cx'd the appt or if he was a no-show. They state they are not willing to schedule pt for another appt and pt will need to find another provider. Addendum entered by Maddi Reyna 05/11/22 12:51: Pt states he lives w/both his grandmother, Ines, and his mother Ines Campbell. His grandmother is usually who takes him to medical appts. She works Wed thru Sunday 10 PM to 7 AM. He is agreeable to his grandmother being involved in coordination of his appts so they can be scheduled around her availability. Original Note: RN CM WHOLESALER CM to room to meet with patient for initial transition planning/care coordination assessment. RN HUSEYIN introduced self and role at [facility]. Pt voices understanding and consents to assessment at this time. Pt resting in bed in no distress at this time. Pt is A/O at this time and answers all questions appropriately. Care providers, pharmacy, and demographics verified/updated at this time. PCP: Dr Tori Butler. Pt states has not seen her in a long time and states, I need to find a different one cause she mostly is for kids. RN HUSEYIN provided pt w/list of local PCP's and offered to schedule an appt to get established w/new PCP. Pt states he will take a look at it and will let RN HUSEYIN know who he prefers to see. Pt was made aware of what PCP's have [facility] Van transportation services as well. Specialists: Appt was scheduled w/Dr Galindo for 04/20 as well as transportation through [facility], during pt's last admission. Pt states he did not go to it. Initially he stated it was d/t his grand-mother thought it was later in the day. When VERONA FONTANEZ stated transportation was already set up through [facility], pt then stated, The times got all screwed up, stating he was told it was 8:15 and then stated someone called him and told him the appt was @ 9 AM and that he missed it. He stated he has tried calling Dr Galindo's office again and they will not take him back now d/t missed appts. [facility]erred [facility]acy: [facility] Insurance: [employer]. Referral was made last admission in March w/[facility] Coordination Dept for CM and SW services w/Scar Goldsmith (PH: [phone]). Pt states he does not recall getting any calls from them but that he would be agreeable to getting established w/a CM through [facility]. RN HUSEYIN placed call to Scar's #. Per [place], Scar is out of office 05/06-05/16. VERONA FONTANEZ spoke w/CM Leanna ([phone]) , who is covering for Scar. Per Leanna, referral was closed d/t they were unable to reach pt. Leanna stated they do not have a phone number on file for pt. VERONA FONTANEZ provided Leanna w/pt's # at this time. She states they will reach out to pt. Per Leanna, she will not be in the office tomorrow 05/12. Estrellita will be CM covering ([phone]) tomorrow. Prescription Benefit: Yes Living Will/HPOA: Pt does not currently have LW/HCPOA and declines info at this time. LNOK: Mother, Ines Ruiz Grandmother Ines Living Arrangements: Pt lives w/his aunt and several other people that live in the home. Pt is independent. Transportation: Pt states his grandmother usually takes him to his appts. Pt is aware that transportation to medical appts is available through [facility], but he has never utilized them and states does not have a reason why, he just hasn't. He states he still has the information re: their transportation assistance. DME: Pt states he has a functioning glucometer w/supplies and has good supply of insulin and insulin admin supplies. CM to follow for further discharge planning/needs. Pt voices no further concerns/needs at this time. Advised pt to ask for CM if any further questions/concerns/needs arise. Voices understanding. PLAN: Home Ena LEVINEN VERONA FONTANEZ
[2022-05-11] MEDS: Insulin Lispro 100 UNIT/ML INSULN.PEN 15 UNIT SC ×2 (12:18→16:47)
[2022-05-11] MEDS: Insulin Lispro 100 UNIT/ML INSULN.PEN SC (12:18)
[2022-05-11 13:30] LABS: Bedside Glucose 202 mg/dL (74-106)
--- NOTE | 2022-05-11 13:59 | PCM.PN.HOSP ---
Subjective Subjective Patient is feeling much better today. We rediscussed the importance of outpatient follow-up with endocrinology and we will try to reestablish him with endocrinology as an outpatient however he has been dismissed from several practices due to noncompliance. He states he did better when he had a monitor pod but his insurance changed and he is no longer able to do this. He states he is uncertain who changed his insurance but was adamant that it was not him. Objective Data Objective Data Vital Signs: Vital Signs Temp Pulse Resp BP Pulse Ox O2 Del Method 97.9 F 124 H 20 H 121/86 H 100 Room Air 05/11/22 12:00 05/11/22 13:00 05/11/22 13:00 05/11/22 13:00 05/11/22 13:00 05/11/22 13:00 Oxygen Delivery Method Room Air Weight: 69.9 kg Body Mass Index (BMI) 19.8 Intake & Output: Intake and Output for Last 24 Hours 05/09/22 05/10/22 05/11/22 23:59 23:59 23:59 Intake Total 3523.29 / 3934.29 5961.3233 / 5961.3233 Output Total 1100 / 1500 1979 / 1979 Balance 2423.29 / 2434.29 3981.3233 / 3981.3233 Lab / Micro Data Result Diagrams: 05/11/22 05:30 05/11/22 05:30 Labs: Laboratory Results - last 24 hr 05/10/22 12:45: Hemoglobin A1c < 3.8 L 05/10/22 13:59: POC Glucose 275 H 05/10/22 14:46: POC Glucose 180 H 05/10/22 15:47: POC Glucose 176 H 05/10/22 16:53: POC Glucose 154 H 05/10/22 16:55: Sodium 140, Potassium 2.8 L, Chloride 116 H, Carbon Dioxide 9.0 L*, Anion Gap 15, BUN 7, Creatinine 0.86, Estim Creat Clear Calc 131.45, Est GFR (MDRD) Af Amer 144, Est GFR (MDRD) Non-Af 119, BUN/Creatinine Ratio 8.1 L, Glucose 147 H, Calcium 8.3 L 05/10/22 16:55: Phosphorus 0.8 L*, Magnesium 1.7 05/10/22 17:50: POC Glucose 118 H 05/10/22 18:54: POC Glucose 117 H 05/10/22 20:00: POC Glucose 145 H 05/10/22 21:07: POC Glucose 173 H 05/10/22 21:12: Sodium 142, Potassium 3.6, Chloride 119 H, Carbon Dioxide 11.0 L, Anion Gap 12, BUN 7, Creatinine 0.83, Estim Creat Clear Calc 136.20, Est GFR (MDRD) Af Amer 150, Est GFR (MDRD) Non-Af 124, BUN/Creatinine Ratio 8.5 L, Glucose 215 H, Calcium 7.9 L 05/10/22 21:12: Phosphorus 2.1 L, Magnesium 3.1 H 05/10/22 22:03: POC Glucose 182 H 05/10/22 23:20: POC Glucose 213 H 05/11/22 00:14: POC Glucose 274 H 05/11/22 01:04: POC Glucose 230 H 05/11/22 01:05: Sodium 143, Potassium 3.0 L, Chloride 119 H, Carbon Dioxide 12.0 L, Anion Gap 12, BUN 8, Creatinine 0.86, Estim Creat Clear Calc 131.45, Est GFR (MDRD) Af Amer 143, Est GFR (MDRD) Non-Af 119, BUN/Creatinine Ratio 9.3 L, Glucose 242 H, Calcium 7.5 L, Magnesium 2.2 05/11/22 01:05: Phosphorus 2.2 L 05/11/22 02:06: POC Glucose 175 H 05/11/22 03:27: POC Glucose 146 H 05/11/22 04:12: POC Glucose 132 H 05/11/22 05:21: POC Glucose 97 05/11/22 05:30: Sodium 142, Potassium 3.2 L, Chloride 118 H, Carbon Dioxide 17.0 L, Anion Gap 7, BUN 7, Creatinine 0.77, Estim Creat Clear Calc 150.04, Est GFR (MDRD) Af Amer 164, Est GFR (MDRD) Non-Af 136, BUN/Creatinine Ratio 9.1 L, Glucose 114 H, Calcium 8.3 L, Magnesium 2.4, TSH 1.68 05/11/22 05:30: WBC 4.7, RBC 4.68, Hgb 13.8, Hct 38.8 L, MCV 82.9 D, MCH 29.5, MCHC 35.6 D, RDW Std Deviation 43.8, RDW Coeff of Rabia 14.7 H, Plt Count 273, MPV 9.1, Immature Gran % (Auto) 0.400, Neut % (Auto) 56.0, Lymph % (Auto) 24.7, [place] % (Auto) 16.3 H, Eos % (Auto) 2.2, Baso % (Auto) 0.4, Absolute Neuts (auto) 2.6, Absolute Lymphs (auto) 1.15, Nucleated RBC % 0 05/11/22 05:30: Phosphorus 1.9 L 05/11/22 05:30: Hemoglobin A1c 12.2 H 05/11/22 06:17: POC Glucose 106 05/11/22 07:04: POC Glucose 99 05/11/22 08:20: POC Glucose 75 05/11/22 12:15: POC Glucose 202 H ABG Data ABG results: ABG 05/10/22 14:56 Specimen Type MARILYNN VBG pH 7.15 L* VBG pO2 163 H VBG HCO3 6 L VBG Total CO2 7 L VBG O2 Sat (Calc) 99 H VBG Base Excess -23 L POC Mix VBG pCO2 Pt Tmp 17.0 L* Crit Call To/Read Back Yes Blood Gas Notified Whom ANTONINA Blood Gas Notified Time 14:58:12 Physical Exam Const alert, oriented x3, no apparent distress and average body habitus Constitutional Narrative: Young white male lying in bed, watching television, appears much improved since yesterday, pleasant and nontoxic HEENT normocephalic, head/scalp atraumatic and hearing grossly normal bilaterally HEENT Narrative: Dentition is poor, Mallampati is 1, no thrush Resp normal respiratory effort, no retractions, no use of accessory muscles and clear to auscultation bilaterally Auscultation: Negative for crackles, rales, rhonchi or wheezes Cardio regular rhythm, S1 normal heart sound, S2 normal heart sound, no murmurs, no rub, no gallops, no clicks and no JVD Cardio Narrative: Mild tachycardia GI normal to inspection, nondistended, normoactive bowel sounds, soft to palpation, non-tender and non-distended; Negative for hepatosplenomegaly Extremity no clubbing, cyanosis or edema Extremity Narrative: 2+ pedal pulses-decreased lean muscle mass Neuro oriented x3, CN's II-XII intact bilaterally, moves all extremities and no focal motor deficits Sensorium / Orientation: awake, alert, oriented to person, oriented to place and oriented to time Speech: speech normal Psych Psych Narrative: Affect remains, flat mood seems depressed Mood & Affect: depressed Assessment & Plan Assessment/Plan (1) DKA (diabetic ketoacidosis): (2) Dehydration: (3) Noncompliance: (4) High anion gap metabolic acidosis: (5) Hypokalemia: PLAN: Plan Diabetic ketoacidosis -Resolved DM-1 uncontrolled -Patient noncompliant does not follow regularly with anyone for his diabetes -Hemoglobin A1c has been drawn twice because his initial hemoglobin A1c was reported out as less than 3.8 however repeat was 12.2 -Will give 22 units of NPH to enable him getting off the insulin drip -Start Lantus 45 units at at bedtime -Start lispro 15 units 3 times daily with meals -Start sliding scale insulin -Before meals and at bedtime Accu-Cheks -Start carb controlled diet -Refer to endocrinology as an outpatient -Discussed the deleterious effects of long-term uncontrolled blood sugars -Patient with frequent DKA admissions Anion gap metabolic acidosis -Resolved Hypokalemia -Patient still with hypokalemia despite aggressive replacement -Will repeat potassium 40 mill equivalents p.o. -Magnesium level is normalized -Repeat BMP in a.m. Hypophosphatemia -K-Phos bolus given -Repeat Phos in a.m. Dehydration -Resolved DVT prophylaxis -Lovenox -SCDs CODE STATUS -full code Disposition: -Anticipate discharge tomorrow Charges/Coding Visit Charges Inpatient E&M: 34113 Subs Hosp L2
[2022-05-11 16:56] LABS: Bedside Glucose 138 mg/dL (74-106)
[2022-05-11] MEDS: Insulin Glargine-YFGN 100 UNIT/ML Pen 45 UNIT SC (21:32)
[2022-05-11 22:15] LABS: Bedside Glucose 163 mg/dL (74-106)
[2022-05-12 03:45] VITALS: BP 102/65; PULSE 85; PULSE 94; RESP 18; TEMP 37.2; O2SAT 99
[2022-05-12 05:43] LABS: Anion Gap 7 (5-15); BUN 3 mg/dL (7-18); BUN/Creat Ratio 4.3 RATIO (10-20); Calcium,Total 8.6 mg/dL (8.5-10.1); Chloride 108 mmol/L (98-107); Creatinine, Serum 0.69 mg/dL (0.70-1.30); EST Glomerular Filtration Rate 153 mL/min (>60); Est Glom Filt Rate - Afr Amer 185 mL/min (>60); Estimated Creatinine Clearance 167.43 ml/min; Glucose 112 mg/dL (74-106); Phosphorus 2.5 mg/dL (2.5-4.9); Potassium 2.6 mmol/L (3.5-5.1); Sodium Level 140 mmol/L (136-145)
--- NOTE | 2022-05-12 06:44 | PCM.PN.INT ---
Assessment & Plan Assessment/Plan (1) DKA (diabetic ketoacidosis): PLAN: Plan RECOMMENDATIONS: 1. Continue basal and sliding scale insulin coverage. 2. Aggressive electrolyte repletion. 3. Encourage incentive spirometer use and mobilize patient as tolerated. 4. The patient should ideally establish care with a new photovoltaic installer following discharge. 5. Will sign off from a critical care perspective. Please call with any additional questions. IMPRESSIONS: 1. Diabetic ketoacidosis Resolved. Secondary to outpatient noncompliance with prescribed medical therapy. This is a recurrent issue for the patient leading to frequent hospitalizations. He has been released from his prior endocrinology practice due to noncompliance. Plan to continue basal and sliding scale insulin coverage as ordered. 2. Hypokalemia Electrolyte repletion as ordered. Recheck levels in the morning. 3. History of medical noncompliance leading to frequent hospitalizations Complicates care, management, recovery and prognosis. Case management and social work to assist with any barriers to outpatient resources the patient may ultimately require. This note was generated with [employer] dictation software. It may contain incorrect words, spelling, and punctuation that were not noted in checking the note before signing. Subjective Subjective The patient was seen and examined at the bedside this morning. Events from the last 24 hours have been reviewed. The patient is currently afebrile, hemodynamically stable and maintaining appropriate oxygen saturations on room air. The patient is tolerating a diet without any overnight issues identified. He is currently documented to be overall net +5 L for the hospitalization. DKA has resolved. Potassium is low this morning at 2.6. Objective Data Objective Data The patient's most recent lab work, culture data and imaging studies have all been personally reviewed. Vital Signs: Vital Signs Temp Pulse Resp BP Pulse Ox O2 Del Method 98.9 F 94 18 102/65 99 Room Air 05/12/22 03:45 05/12/22 03:45 05/12/22 03:45 05/12/22 03:45 05/12/22 03:45 05/12/22 03:52 Oxygen Delivery Method Room Air Weight: 157 lb 6.561 oz Body Mass Index (BMI) 19.8 Intake & Output: Intake and Output for Last 24 Hours 05/10/22 05/11/22 05/12/22 23:59 23:59 23:59 Intake Total 3523.29 / 3934.29 7921.1193 / 6441.3233 Output Total 1100 / 1500 3430 / 3430 400 / 400 Balance 2423.29 / 2434.29 3011.3233 / 3011.3233 -400 / -400 Lab / Micro Data Attestation: I reviewed the patient's lab results. Result Diagrams: 05/11/22 05:30 05/12/22 04:04 Labs: Laboratory Results - last 24 hr 05/11/22 05:30: Hemoglobin A1c 12.2 H 05/11/22 07:04: POC Glucose 99 05/11/22 08:20: POC Glucose 75 05/11/22 12:15: POC Glucose 202 H 05/11/22 16:39: POC Glucose 138 H 05/11/22 21:30: POC Glucose 163 H 05/12/22 04:04: Sodium 140, Potassium 2.6 L*, Chloride 108 H, Carbon Dioxide 25.0, Anion Gap 7, BUN 3 L, Creatinine 0.69 L, Estim Creat Clear Calc 167.43, Est GFR (MDRD) Af Amer 185, Est GFR (MDRD) Non-Af 153, BUN/Creatinine Ratio 4.3 L, Glucose 112 H, Calcium 8.6, Phosphorus 2.5 Physical Exam Const alert and no apparent distress General Appearance: cooperative HEENT normocephalic and head/scalp atraumatic Teeth and Gingiva: poor dentition Eyes PERRL, EOMs intact bilaterally and conjunctivae normal Neck supple General: trachea midline Chest inspection of chest normal Resp normal respiratory effort Auscultation: Negative for rales, rhonchi or wheezes Cardio regular rate and regular rhythm GI normal to inspection, nondistended, normoactive bowel sounds Extremity no clubbing, cyanosis or edema Skin no rashes or lesions noted Neuro CN's II-XII intact bilaterally, moves all extremities and no focal motor deficits Psych Mood & Affect: flat affect Charges/Coding Visit Charges Inpatient E&M: 68020 Subs Hosp L2
[2022-05-12] MEDS: Potassium Chloride Oral Tablet 20 MEQ 60 MEQ PO ×2 (06:48→12:35)
[2022-05-12 07:00] VITALS: PULSE 87
[2022-05-12 07:34] VITALS: O2SAT 99
[2022-05-12 08:25] LABS: Bedside Glucose 111 mg/dL (74-106)
[2022-05-12] MEDS: Insulin Lispro 100 UNIT/ML INSULN.PEN 15 UNIT SC ×2 (08:30→12:35)
[2022-05-12] MEDS: Enoxaparin 40 MG/0.4 ML Syringe SC (08:32)
[2022-05-12 08:35] VITALS: BP 100/68; PULSE 89; RESP 18; TEMP 36.5; O2SAT 100
--- NOTE | 2022-05-12 11:43 | CASEMGMT ---
Addendum entered by Joana Soliman 05/12/22 12:12: Pt's grandmother states they chose Karri Momin for PCP and Delilah [employer] secretary, aware and making appt for pt. Pt's chart updated with PCP. Pt/family voice no further questions/concerns/needs. Tessa RHOADES CM Original Note: This RN CM to room to see if pt/family picked PCP for pt to f/u with at discharge. Pt does not answer RN CM and grandmother states 'He needs to be the one picking the dr., I can't do everything for him.' Grandmother has PCP list in room when this RN CM entered. This RN CM advised pt/family would check back later and grandmother states, 'I am going to have to leave soon.' Advised grandmother to let [employer] secretary know about decision on PCP, if she has to leave before this RN CM is able to check back, voices understanding. Delilah [employer] secretary, aware of all, voices understanding. Tessa RHOADES CM
[2022-05-12 11:50] LABS: Bedside Glucose 104 mg/dL (74-106)
--- NOTE | 2022-05-12 11:58 | DS.PCM_ITS ---
Providers Date of Admission: 05/10/22 Date of Discharge: 05/12/22 Primary Care Physician: Dr. Tori Butler MD Consultations 05/11/22 05:46 Consult: Wastewater Project Engineer / Pulmonary Medicine Routine Consulting Provider: Pulmonary Medicine karis Madison Reason for Consult: DKA EMERGENT Consult: No Notified: Yes Date Notified: 05/11/22 Time Notified: 05:46 Method of Notification: Text Reason For Visit: DKA Diagnosis Discharge Diagnosis (1) DKA (diabetic ketoacidosis): Status: Acute Code(s): E11.10 - Type 2 diabetes mellitus with ketoacidosis without coma Plan Diabetic ketoacidosis -Resolved DM-1 uncontrolled -Patient noncompliant does not follow regularly with anyone for his diabetes -Hemoglobin A1c has been drawn twice because his initial hemoglobin A1c was reported out as less than 3.8 however repeat was 12.2 -Will give 22 units of NPH to enable him getting off the insulin drip -Start Lantus 45 units at at bedtime -Start lispro 15 units 3 times daily with meals -Start sliding scale insulin -Before meals and at bedtime Accu-Cheks -Start carb controlled diet -Refer to endocrinology as an outpatient -Discussed the deleterious effects of long-term uncontrolled blood sugars -Patient with frequent DKA admissions Anion gap metabolic acidosis -Resolved Hypokalemia -Patient still with hypokalemia despite aggressive replacement -Will repeat potassium 40 mill equivalents p.o. -Magnesium level is normalized -Repeat BMP in a.m. Hypophosphatemia -K-Phos bolus given -Repeat Phos in a.m. Dehydration -Resolved DVT prophylaxis -Lovenox -SCDs CODE STATUS -full code Disposition: -Anticipate discharge tomorrow Medications at Discharge Home Medications blood sugar diagnostic (OneTouch Verio test strips) #200 ea 09/08/21 pen needle, diabetic 32 gauge x 5/32 (BD Ultra-Fine Lorin Pen Needle) #360 ea 09/08/21 flash glucose sensor (FreeStyle Niru 14 Day Sensor) #2 ea 10/11/21 insulin glargine 100 unit/mL (3 mL) subcutaneous pen (Lantus Solostar U-100 I nsulin) 45 unit (0.45 mL) subcut QHS blood sugar #3 mL 03/27/22 insulin lispro 100 unit/mL subcutaneous pen 25 unit (0.25 mL) subcut TIDCM blood sugar #1 mL 03/27/22 potassium chloride 20 mEq tablet,extended release(part/cryst) (Klor-Con M) 20 meq PO BID #60 tabs 05/12/22 Hospital Course Operations None Procedures None Summary of Care Provided Minutes Spent on Discharge: 36 Hospital Course: Mr. Carlton is a 21-year-old white male who presented to the emergency department at [facility] on 05/10/2022 with shortness of breath, nausea, and vomiting. The patient indicated on presentation he felt like he had to gasp to breathe. He admitted that his blood sugars had been running high at home for several days. He inconsistently takes his insulin on a regular basis and he indicated that on admission he felt like he was probably in DKA. The patient reported that he had food poisoning a couple days prior and had vomiting with diarrhea but those symptoms had resolved prior to his new symptoms. He denied any new sick contacts and was well up until the morning of presentation. The patient indicated he had seen Dr. Galindo in the past but was fired for noncompliance. It sounds like he also followed up with an bullet slug casting machine operator in [place] from which she was fired as well. Other than his diabetes he has a history of hypokalemia for which she is supposed to take potassium but his mother indicates he is noncompliant with this. In the emergency department upon presentation his temperature was 97.8, heart rate 115, blood pressure 113/93, respiratory rate 25, and pulse ox was 100% on room air.? His CBC was unr emarkable.? A venous blood gas drawn after he was treated with IV fluids and an insulin drip was started showed a pH of 7.15.? His BMP showed mild hypokalemia with a potassium of 3.1 a serum bicarb of 4 and anion gap of 25 a mildly elevated serum creatinine from baseline at 1.18 with a baseline of 0.55-0.65.? His serum blood sugar was 421.? His liver enzymes were normal.? His UA showed glucose urea, microalbuminuria, 150 ketones but no signs of infection and his acetone level was moderate. In the emergency department the patient was given boluses of IV fluids and placed on an insulin drip.? His blood sugar had decreased to 275 just with IV fluids and the patient was started on dextrose with his insulin drip. He was admitted to the intensive care unit and maintained on IV fluids as well as an insulin drip. He eventually cleared his DKA on the morning of 05/11/2022 and we will transition to subcu insulin. He had marked electrolyte disturbances during his hospitalization all of which were corrected. His hemoglobin A1c was 12.2. The patient was maintained on his home reported dose of basal insulin 45 units at at bedtime and was given 3 times daily mealtime insulin as well at a reduced rate compared to home as I suspect his diet is more irregular than while he is in the hospital. His fasting blood sugar on the morning of admission was 112. The patient indicated he had insulin at home and did not need refills. I did give him a prescription for potassium chloride as he admits to chronic hypokalemia at home with noncompliance and was unaware of his home dosing. We put him on 40 mill equivalents daily and we recommended he call his primary care physician to obtain a basic metabolic profile in 1 week. The patient was discharged in stable condition on 05/12/2022. I did give him a name of an bullet slug casting machine operator he could call for an outpatient follow-up and we strongly encouraged compliance as well as endocrinology follow- up at discharge. He is to follow-up with his primary care physician for an evaluation in 1 to 2 weeks as well as obtain the above basic metabolic profile to be done in 1 week. Discharge diagnosis: DKA-resolved DM 1-uncontrolled Anion gap metabolic acidosis-resolved Hypokalemia-acute on chronic Hypophosphatemia-resolved Dehydration-resolved Noncompliance/nonadherence Physical Exam Const alert, oriented x3, no apparent distress and average body habitus Constitutional Narrative: Thin, young white male lying in bed, watching television, appears comfortable, pleasant and nontoxic General Appearance: cooperative, comfortable, well kempt and well developed Orientation / Consciousness: awake Exam Limitations: no limitations Nutritional Appearance: thin HEENT normocephalic, head/scalp atraumatic, hearing grossly normal bilaterally and moist oral mucous membranes HEENT Narrative: Mallampati 2, no thrush, dentition is poor Eyes PERRL, EOMs intact bilaterally and conjunctivae normal Eyes Narrative: No scleral icterus Neck no lymphadenopathy, supple, no JVD and no carotid bruits Neck Narrative: Trachea midline, no thyroid enlargement Resp normal respiratory effort, no retractions, no use of accessory muscles and clear to auscultation bilaterally Auscultation: Negative for crackles, rales, rhonchi or wheezes Cardio regular rate, regular rhythm, S1 normal heart sound, S2 normal heart sound, no murmurs, no rub, no gallops, no clicks and no JVD GI normal to inspection, nondistended, normoactive bowel sounds, soft to palpation, non-tender and non-distended; Negative for hepatosplenomegaly Extremity no clubbing, cyanosis or edema Extremity Narrative: 2+ pedal pulses-decreased lean muscle mass Skin no rashes or lesions noted, no wounds, skin turgor normal, no jaundice, no petechiae and no mottling General Skin Exam: no breakdown Hair: other Dyed pink Neuro oriented x3, CN's II-XII intact bilaterally, moves all extremities and no focal motor deficits Sensorium / Orientation: awake, alert, oriented to person, oriented to place and oriented to time Speech: speech normal Motor Exam: strength 5/5 throughout Psych Psych Narrative: Flat affect with depressed mood Mood & Affect: depressed Weight / BMI Weight Weight: 71.4 kg Body Mass Index (BMI) 19.8 ABG / Lab / Microbiology Data Result Diagrams: 05/11/22 05:30 05/12/22 11:09 Laboratory: Laboratory Results - last 24 hr 05/11/22 12:15: POC Glucose 202 H 05/11/22 16:39: POC Glucose 138 H 05/11/22 21:30: POC Glucose 163 H 05/12/22 04:04: Sodium 140, Potassium 2.6 L*, Chloride 108 H, Carbon Dioxide 25.0, Anion Gap 7, BUN 3 L, Creatinine 0.69 L, Estim Creat Clear Calc 167.43, Est GFR (MDRD) Af Amer 185, Est GFR (MDRD) Non-Af 153, BUN/Creatinine Ratio 4.3 L, Glucose 112 H, Calcium 8.6, Phosphorus 2.5 05/12/22 08:18: POC Glucose 111 H 05/12/22 11:09: Potassium 3.0 L 05/12/22 11:42: POC Glucose 104 D/C Instructions Discharge Diet: 2000 Calorie Control Diet Discharge Activity: Return to Normal Activity Meaningful Use Info Meaningful Use Diagnoses (Choose all that apply): None applicable Discharge Plan Admission Admit Date/Time: 05/10/22 14:21 Primary Reason for Your Visit: DKA Attending Provider: Elizabeth Alvarez Primary Care Provider: Tori Butler Consulting Providers: Tanmay Ferrell ; Pb Momin ; Judie Jay ELECTROENCEPHALOGRAPHIC TECHNOLOGIST Instructions Additional Instructions / Restrictions: 1. Call primary care physician to obtain a basic metabolic profile in the lab for 1 week from today Discharge Orders/Prescriptions Prescriptions: New potassium chloride [Klor-Con M20] 20 mEq tablet,ER particles/crystals 20 meq PO BID Qty: 60 0RF Continued (DME) OneTouch Verio test strips Strip See Rx Instructions .ROUTE .MEDSUPPLY Qty: 200 6RF Rx Instructions: 4x/day (DME) pen needle, diabetic [BD Ultra-Fine Lorin Pen Needle] 32 gauge x 5/32 needle See Rx Instructions .ROUTE .MEDSUPPLY Qty: 360 6RF Rx Instructions: As directed (DME) FreeStyle Niru 14 Day Sensor Kit See Rx Instructions .ROUTE .MEDSUPPLY Qty: 2 5RF Rx Instructions: As directed insulin lispro 100 unit/mL insulin pen 25 unit SUBCUT TIDCM Qty: 1 2RF insulin glargine [Lantus Solostar U-100 Insulin] 100 unit/mL (3 mL) insulin pen 45 unit SUBCUT QHS Qty: 3 2RF Label Comments: INJECT 30U AT BEDTIME Referrals / Follow Up: Karri Momin DO [STAFF PHYSICIAN] - In 1 Week (please get appt as soon as possible) Tori Butler MD [Primary Care Provider] - Mihir Rueda DO [NON-STAFF] - Disposition Disposition (needs filled in before D/C Order can be placed): Home, Self Care Charges/Coding Visit Charges Inpatient E&M: 76810 Disch Hosp
[2022-05-12 12:00] VITALS: PULSE 88
[2022-05-12 12:34] LABS: Anion Gap 5 (5-15); BUN 3 mg/dL (7-18); BUN/Creat Ratio 4.7 RATIO (10-20); Calcium,Total 8.7 mg/dL (8.5-10.1); Chloride 110 mmol/L (98-107); Creatinine, Serum 0.63 mg/dL (0.70-1.30); EST Glomerular Filtration Rate 169 mL/min (>60); Est Glom Filt Rate - Afr Amer 205 mL/min (>60); Estimated Creatinine Clearance 187.31 ml/min; Glucose 90 mg/dL (74-106); Potassium 3.1 mmol/L (3.5-5.1); Sodium Level 143 mmol/L (136-145)
[2022-05-12 12:44] VITALS: BP 100/68; PULSE 89; RESP 18; TEMP 36.5; O2SAT 100
== END 2022-05-12 14:45 | disposition home or self-care (01) | DRG 420 ==
LOC: ED 13:55 → ICU 05-11 07:00 → PCU 05-11 16:23
PROVIDERS: Admitting Provider Internal Medicine; Emergency Provider Emergency Medicine; PCP Family Medicine; Visit Provider Internal Medicine
DX: E10.10 Type 1 diabetes mellitus with ketoacidosis without coma (principal); R11.2 Nausea with vomiting, unspecified; E83.39 Other disorders of phosphorus metabolism; E86.0 Dehydration; E87.6 Hypokalemia; Z91.19 Patient's noncompliance with other medical treatment and regimen; K21.9 Gastro-esophageal reflux disease without esophagitis; Z79.4 Long term (current) use of insulin; Z79.899 Other long term (current) drug therapy
CPT/HCPCS: 36415; 80048; 80053; 81001; 82009; 82803; 82962; 83036; 83735; 84100; 84132; 84443; 85025; 93005; 99285; J7030; J7040; J7050; J7120; A4216; J0610; J2405; J7799

== ENCOUNTER 2022-06-16 21:38 | Inpatient (IN) | payer MEDICAID, SELFPAY ==
[2022-06-16 21:39] VITALS: BP 96/66; PULSE 116; RESP 16; TEMP 36.1; O2SAT 99; BMI 23.2
--- NOTE | 2022-06-16 22:14 | EX.ED.DYSGE1 ---
HPI History of Present Illness Chief Complaint: Nausea/Vomiting Narrative Narrative: Patient is a 21-year-old male with history of type 1 diabetes on Lantus and lispro. He has been in DKA multiple times in the past and is even spent 6 months in a penitentiary secondary to a chronic leg wound. He states that today after eating he developed a few bouts of nausea and vomiting. Patient states he was concerned that he could be progressing to DKA once again as his blood sugar was elevated around 400 at home despite taking his medication and secondary to this he comes in for evaluation. Patient denies any known sick contacts he denies any loose stool or diarrhea or recent sick symptoms [facility] Medical History Asthma Diabetes Diabetes mellitus type 1 Diabetic ketoacidosis associated with type 1 diabetes mellitus femur surgery GERD (gastroesophageal reflux disease) Hypokalemia Kidney disease Lower extremity edema Nausea and vomiting Non-smoker Noncompliance Noncompliance Nonhealing surgical wound Psychosocial problem Sinus tachycardia seen on air chipper Ulcer of leg, chronic Wound of left lower extremity Home Medications blood sugar diagnostic (OneTouch Verio test strips) #200 ea 09/08/21 [Rx Last Taken Unknown] pen needle, diabetic 32 gauge x 5/32 (BD Ultra-Fine Lorin Pen Needle) #360 ea 09/08/21 [Rx Last Taken Unknown] flash glucose sensor (FreeStyle Niru 14 Day Sensor kit) #2 ea 10/11/21 [Rx Last Taken Unknown] insulin glargine 100 unit/mL (3 mL) subcutaneous pen (Lantus Solostar U-100 Insulin) 45 unit (0.45 mL) subcut QHS blood sugar #3 mL 03/27/22 [Rx Last Taken 05/09/22] insulin lispro 100 unit/mL subcutaneous pen 25 unit (0.25 mL) subcut TIDCM blood sugar #1 mL 03/27/22 [Rx Last Taken 05/10/22] potassium chloride 20 mEq tablet,extended release(part/cryst) (Klor-Con M) 20 meq PO BID #60 tabs 05/12/22 [Rx Last Taken Unknown] Allergy/AdvReac Type Severity Reaction Status Date / Time Milk Containing Products AdvReac Diarrhea Verified 06/16/22 21:39 Family History Father Polysubstance overdose Patient father young secondary to OD. Mother Iron deficiency anemia Other Asthma CVA (cerebral vascular accident) Diabetes Hypertension Thyroid disorder Surgical History (Updated 06/16/22 @ 21:56 by Chaya Fall) H/O right knee surgery History of surgery on extremity Hx of knee surgery Social History (Updated 05/10/22 @ 17:[address] Elizabeth Alvarez, DO) housing: other details: Lives with his grandmother, aunt and mother. Smoking Status: Never smoker alcohol intake: current alcohol intake frequency: a few times a month substance use type: does not use ROS ROS ED Constitutional Constitutional ED: Denies chills or fever(s) ENT ENT ED: Denies sore throat Cardiovascular Cardiovascular: Denies chest pain Respiratory/Chest Respiratory/Chest: Denies cough or dyspnea Gastrointestinal Gastrointestinal: Reports nausea and vomiting; Denies abdominal pain or diarrhea Genitourinary Genitourinary ED: Denies dysuria Musculoskeletal Musculoskeletal: Denies myalgias Integumentary Denies rash Neurologic Neurologic: Denies headache(s) Hematologic/Lymphatic Hematologic/Lymphatic: Denies easy bleeding or easy bruising EXAM Physical Exam Const Vital Signs: 06/16/22 21:39 Temperature 97.0 F L Temperature Source Temporal Pulse Rate 116 H Respiratory Rate 16 Blood Pressure 96/66 Blood Pressure Mean 76 Pulse Ox 99 Oxygen Delivery Method Room Air Positive well nourished and well developed General Appearance ED: well developed HEENT Reports moist mucous membranes Eyes PERRL and EOMs intact bilaterally Neck supple Resp normal respiratory effort and clear to auscultation bilaterally Cardio regular rhythm Rate: tachycardic GI normal to inspection, nondistended, normoactive bowel sounds, non-tender and non-distended GI Narrative: Abdomen is soft nontender nondistended with normoactive bowel sounds no voluntary guarding or rigidity no pulsatile mass or fluid wave noted Auscultation: normoactive bowel sounds Palpation: soft Extremity Extremity Narrative: +2-3 pitting edema to the bilateral lower extremities that is equal and symmetric with negative Homans' sign bilaterally Neuro oriented x3 and CN's II-XII intact bilaterally Sensorium / Orientation: alert Psych mental status grossly normal Skin no rashes or lesions noted MDM MDM MDM Narrative Medical decision making narrative: Patient presented to the ER mildly tachycardic and with a normal but soft blood pressure. Based on his previous history of recurrent DKA and type 1 diabetes and the fact he reported nausea and vomiting with elevated blood sugar there is concern he is progressing to DKA once again. Therefore a basic work-up was obtained. Patient has elevated blood sugar at 460 with a small amount of serum ketones and a pH of 7.28. His bicarb is technically low at 20 but his anion gap is normal. At this time based on his acidosis I feel he is progressing to mild DKA. He states symptoms only and present for a few hours and therefore I feel we are catching early compared to a few days into the disease process similar to when he presented approximately 1 month ago. Therefore this time with his hypokalemia and metabolic acidosis I do feel he needs to be placed on an insulin drip in order to control his blood sugar and prevent worsening of his symptoms. Patient will be admitted to the hospital and placed in the ICU secondary to the need for the insulin drip. Lab Data Attestation: I reviewed the patient's lab results. Labs: Laboratory Results - last 24 hr 06/16/22 06/16/22 06/16/22 22:20 22:20 22:20 WBC 4.0 L RBC 4.31 L Hgb 13.0 Hct 35.4 L MCV 82.1 MCH 30.2 MCHC 36.7 H RDW Std Deviation 40.7 RDW Coeff of Rabia 13.8 Plt Count 259 MPV 9.5 Immature Gran % (Auto) 0.500 Neut % (Auto) 62.6 Lymph % (Auto) 22.6 Mcnairy % (Auto) 12.0 H Eos % (Auto) 1.8 Baso % (Auto) 0.5 Absolute Neuts (auto) 2.5 Absolute Lymphs (auto) 0.90 Nucleated RBC % 0 Sodium 133 L Potassium 2.5 L* Chloride 103 Carbon Dioxide 20.0 L Anion Gap 10 BUN 6 L Creatinine 1.16 Estim Creat Clear Calc 113.75 Est GFR (MDRD) Af Amer 102 Est GFR (MDRD) Non-Af 84 BUN/Creatinine Ratio 5.2 L Glucose 458 H* Lactic Acid Calcium 8.3 L Magnesium 1.9 Total Bilirubin 1.00 Direct Bilirubin 0.24 AST 7 L ALT 14 L Alkaline Phosphatase 115 Total Protein 6.0 L Albumin 3.3 Globulin 2.7 Lipase 52 L Urine Color Urine Clarity Urine pH Ur Specific Warren Urine Protein Urine Glucose (UA) Urine Ketones Urine Occult Blood Urine Nitrite Urine Bilirubin Urine Urobilinogen Ur Leukocyte Esterase Urine RBC Urine WBC Ur Squamous Epith Cells Urine Bacteria Coarse Granular Casts Urine Mucus Acetone Level SMALL H 06/16/22 06/16/22 22:20 22:20 WBC RBC Hgb Hct MCV MCH MCHC RDW Std Deviation RDW Coeff of Rabia Plt Count MPV Immature Gran % (Auto) Neut % (Auto) Lymph % (Auto) Mcnairy % (Auto) Eos % (Auto) Baso % (Auto) Absolute Neuts (auto) Absolute Lymphs (auto) Nucleated RBC % Sodium Potassium Chloride Carbon Dioxide Anion Gap BUN Creatinine Estim Creat Clear Calc Est GFR (MDRD) Af Amer Est GFR (MDRD) Non-Af BUN/Creatinine Ratio Glucose Lactic Acid 1.4 Calcium Magnesium Total Bilirubin Direct Bilirubin AST ALT Alkaline Phosphatase Total Protein Albumin Globulin Lipase Urine Color STRAW Urine Clarity Clear Urine pH 6.0 Ur Specific Warren 1.015 Urine Protein 100 H Urine Glucose (UA) 1000 H Urine Ketones 150 A* Urine Occult Blood 25 H Urine Nitrite Negative Urine Bilirubin Negative Urine Urobilinogen Normal Ur Leukocyte Esterase Negative Urine RBC 0-5 SEEN Urine WBC 0 SEEN Ur Squamous Epith Cells 0 SEEN Urine Bacteria RARE Coarse Granular Casts 0-5 SEEN Urine Mucus 0 SEEN Acetone Level ABG Data ABG results: ABG 06/16/22 22:23 Specimen Type MARILYNN VBG pH 7.29 L VBG pO2 34 VBG HCO3 18 L VBG Total CO2 19 L VBG O2 Sat (Calc) 59 VBG Base Excess -9 L POC Mix VBG pCO2 Pt Tmp 37.4 L O2 Delivery Device Room Air Critical Care Time Critical Care Time: Yes Critical care time (excluding procedures): - (Critical care time of 31 minutes) Discharge Plan Triage Chief Complaint: Nausea/Vomiting ED Provider: Javier Lin Dx/Rx/DC Orders Clinical Impression: Diabetic ketoacidosis, Acute hypokalemia Prescriptions: No Action (DME) OneTouch Verio test strips Strip See Rx Instructions .ROUTE .MEDSUPPLY Qty: 200 6RF Rx Instructions: 4x/day (DME) pen needle, diabetic [BD Ultra-Fine Lorin Pen Needle] 32 gauge x 5/32 needle See Rx Instructions .ROUTE .MEDSUPPLY Qty: 360 6RF Rx Instructions: As directed (DME) FreeStyle Niru 14 Day Sensor Kit See Rx Instructions .ROUTE .MEDSUPPLY Qty: 2 5RF Rx Instructions: As directed insulin lispro 100 unit/mL insulin pen 25 unit SUBCUT TIDCM Qty: 1 2RF insulin glargine [Lantus Solostar U-100 Insulin] 100 unit/mL (3 mL) insulin pen 45 unit SUBCUT QHS Qty: 3 2RF Label Comments: INJECT 30U AT BEDTIME potassium chloride [Klor-Con M20] 20 mEq tablet,ER particles/crystals 20 meq PO BID Qty: 60 0RF Primary Care Provider: Karri Momin Referrals: Karri Momin, DO [Primary Care Provider] - Disposition Disposition: Acute Care Hospital [facility]
[2022-06-16 22:30] LABS: Blood Gas Specimen Type VEN; O2 Delivery Device Room Air; VBG BASE EXCESS -9 mmol/L (-1.0-3.5); VBG Bicarbonate 18 mmol/L (22-26); VBG PO2 34 mmHg (25-40); VBG SO2 59 % (50-70); VBG TCO2 19 mmol/L (23-33); VBG pCO2 37.4 mmHg (41-51); VBG pH 7.29 (7.32-7.42)
[2022-06-16] MEDS: 0.9% Normal Saline 1,000 ML 999 ML IV (22:31)
[2022-06-16 22:34] LABS: Mucous, Urine 0 SEEN /hpf (<or=2+); Squamous Epithelial Cells - UA 0 SEEN /hpf (0-5); White Blood Cells 0 SEEN /hpf (0-5)
[2022-06-16 22:37] LABS: Absolute Neutrophil Count 2.5 X10^3/uL (2.0-7.7); Basophil# 0.02 X10^3/uL; Basophil% 0.5 % (0-1); Eosinophil# 0.07 X10^3/uL; Eosinophils% 1.8 % (0-5); Hematocrit 35.4 % (40-54); Lymphocyte % 22.6 % (19-41); Mean Corp Hgb Conc 36.7 g/dL (32-36); Mean Corpuscular Hgb 30.2 pg (27.0-32.0); Mean Corpuscular Volume 82.1 fL (80-94); Mean Platelet Vol. 9.5 fl (6.2-12.0); Monocyte# 0.48 X10^3/uL; NRBC Flagged by Analyzer 0 % (0-5); Neutrophil % 62.6 % (47-70); Platelet Count 259 K/mm3 (150-450); RBC Distribution Width CV 13.8 % (11.6-14.6); RBC Distribution Width SD 40.7 fl (35.1-43.9); Red Blood Count 4.31 M/mm3 (4.6-6.2)
[2022-06-16 22:39] LABS: Glucose, Dipstick 1000 mg/dl (Normal); Leukocyte Esterase-Dipstick Negative /ul (Negative); Nitrite-Dipstick Negative (Negative); Occult Blood-Urine 25 /ul (Negative); Protein-Dipstick 100 mg/dl (Negative); Specific Gravity, Urine 1.015 (1.002-1.030); Urine Bilirubin Dipstick Negative (Negative); Urine Urobilinogen Normal (Normal)
[2022-06-16 22:42] LABS: Color, Urine STRAW (Yellow); Urine Clarity Clear (Clear)
[2022-06-16 22:49] LABS: Ketone-Dipstick 150 mg/dl (Negative)
[2022-06-16 22:54] LABS: Bacteria RARE /hpf (None Seen); Red Blood Cells-Urine 0-5 SEEN /hpf (0-5)
[2022-06-16 22:55] LABS: Coarse Granular Cast 0-5 SEEN /lpf (0-5 /lpf)
[2022-06-16 23:00] LABS: AST(SGOT) 7 U/L (15-37); Alanine Aminotransfer ALT/SGPT 14 U/L (16-61); Albumin, Serum 3.3 g/dL (3.2-5.0); Alkaline Phosphatase 115 U/L (45-117); Anion Gap 10 (5-15); BUN 6 mg/dL (7-18); BUN/Creat Ratio 5.2 RATIO (10-20); Bilirubin, Direct 0.24 mg/dL (0.00-0.30); Calcium,Total 8.3 mg/dL (8.5-10.1); Chloride 103 mmol/L (98-107); Creatinine, Serum 1.16 mg/dL (0.70-1.30); EST Glomerular Filtration Rate 84 mL/min (>60); Est Glom Filt Rate - Afr Amer 102 mL/min (>60); Estimated Creatinine Clearance 113.75 ml/min; Globulin 2.7 g/dL (2.2-4.2); Glucose 458 mg/dL (74-106); Lipase 52 U/L (73-393); Magnesium 1.9 mg/dL (1.6-2.6); Potassium 2.5 mmol/L (3.5-5.1); Sodium Level 133 mmol/L (136-145)
[2022-06-16 23:24] LABS: Lactic Acid 1.4 mmol/L (0.4-1.9)
--- NOTE | 2022-06-16 23:45 | HP.PCM.HOS_ITS ---
HPI - General General Date of Admission: 06/16/22 Date of Service: 06/16/22 Chief Complaint: Nausea and vomiting - 1 day HPI Narrative SHIRA STEPHENSON, is a 21 M who presents with the above. He has past medical history of type I DM, history of multiple admissions for DKA, noncompliant with follow- up, recently discharged about a month ago after admission for DKA. Patient stated that he has not followed up with endocrinology at discharge. He has not been on a scheduled Lantus or Premeal insulin. He has been using sliding scale according to his carb intake. He was noted today to have intractable nausea and vomiting. Denied any fever or dizziness or palpitations. He denied any chest pain or diarrhea. Denied any sick contact. He denies feeling depressed. He stated that he just gets tired of being a diabetic but is not depressed or suicidal. Vitals in the ED - blood pressure 104/60, heart rate 89, SPO2 100% on room air, temperature 97.8 F. WBC count is 4.0, hemoglobin 13.0, platelet count 259. VBG shows pH 7.29, PCO2 19, sodium is 133, potassium 2.5, chloride 103, bicarbonate 20, BUN is 6, creatinine 1.16. Previous creatinine was 0.63. Blood sugar is 458. Magnesium 1.9. UA shows ketones, glucosuria. Acetone small. [facility] Medical History Asthma Diabetes Diabetes mellitus type 1 Diabetic ketoacidosis associated with type 1 diabetes mellitus femur surgery GERD (gastroesophageal reflux disease) Hypokalemia Kidney disease Lower extremity edema Nausea and vomiting Non-smoker Noncompliance Noncompliance Nonhealing surgical wound Psychosocial problem Sinus tachycardia seen on phototypesetting equipment monitor Ulcer of leg, chronic Wound of left lower extremity Home Medications blood sugar diagnostic (OneTouch Verio test strips) #200 ea 09/08/21 [Rx Last Taken Unknown] pen needle, diabetic 32 gauge x 5/32 (BD Ultra-Fine Lorin Pen Needle) #360 ea 09/08/21 [Rx Last Taken Unknown] flash glucose sensor (FreeStyle Niru 14 Day Sensor kit) #2 ea 10/11/21 [Rx Last Taken Unknown] insulin glargine 100 unit/mL (3 mL) subcutaneous pen (Lantus Solostar U-100 Insulin) 45 unit (0.45 mL) subcut QHS blood sugar #3 mL 03/27/22 [Rx Last Taken 05/09/22] insulin lispro 100 unit/mL subcutaneous pen 25 unit (0.25 mL) subcut TIDCM blood sugar #1 mL 03/27/22 [Rx Last Taken 05/10/22] potassium chloride 20 mEq tablet,extended release(part/cryst) (Klor-Con M) 20 meq PO BID #60 tabs 05/12/22 [Rx Last Taken Unknown] Allergy/AdvReac Type Severity Reaction Status Date / Time Milk Containing Products AdvReac Diarrhea Verified 06/16/22 21:39 Family History Father Polysubstance overdose Patient father young secondary to OD. Mother Iron deficiency anemia Other Asthma CVA (cerebral vascular accident) Diabetes Hypertension Thyroid disorder Surgical History H/O right knee surgery History of surgery on extremity Hx of knee surgery Social History housing: other details: Lives with his grandmother, aunt and mother. Smoking Status: Never smoker alcohol intake: current alcohol intake frequency: a few times a month substance use type: does not use ROS ROS Narrative Constitutional: Reports: Malaise, Weakness, Fatigue. Denies: Anorexia, Chills, Fever, Night Sweats, Weight Change Eyes: Denies: Blurred vision, Cataracts, Conjunctivae Inflammation, Pain, Redness, Vision Change HEENT: Denies: Difficulty Hearing, Difficulty Swallowing, Head Aches, Hearing Changes, Sinus Congestion, Sinus Drainage Cardiovascular: Denies: Chest Pain, Orthopnea, Palpitations Respiratory: Denies: Cough, Shortness of breath at rest, Sputum production Gastrointestinal: See HPI Genitourinary: Denies: Dysuria Musculoskeletal: Admits to bilateral leg swelling denies: Joint Pain, Joint stiffness, Joint swelling, Joint Tenderness Skin: Denies: Rash, Wounds Neurological: Denies: Numbness, Tingling, Focal weakness Vital Signs Vital Signs Vital Signs: 06/16/22 21:39 Temperature 97.0 F L Temperature Source Temporal Pulse Rate 116 H Respiratory Rate 16 Blood Pressure 96/66 Blood Pressure Mean 76 Pulse Ox 99 Oxygen Delivery Method Room Air Weight Weight: 79.832 kg Body Mass Index (BMI) 23.2 Results Lab / Micro Data Result Diagrams: 06/16/22 22:20 06/16/22 22:20 Labs: Laboratory Results - last 24 hr 06/16/22 22:20: WBC 4.0 L, RBC 4.31 L, Hgb 13.0, Hct 35.4 L, MCV 82.1, MCH 30.2, MCHC 36.7 H, RDW Std Deviation 40.7, RDW Coeff of Rabia 13.8, Plt Count 259, MPV 9.5, Immature Gran % (Auto) 0.500, Neut % (Auto) 62.6, Lymph % (Auto) 22.6, [place] % (Auto) 12.0 H, Eos % (Auto) 1.8, Baso % (Auto) 0.5, Absolute Neuts (auto) 2.5, Absolute Lymphs (auto) 0.90, Nucleated RBC % 0 06/16/22 22:20: Sodium 133 L, Potassium 2.5 L*, Chloride 103, Carbon Dioxide 20.0 L, Anion Gap 10, BUN 6 L, Creatinine 1.16, Estim Creat Clear Calc 113.75, Est GFR (MDRD) Af Amer 102, Est GFR (MDRD) Non-Af 84, BUN/Creatinine Ratio 5.2 L , Glucose 458 H*, Calcium 8.3 L, Magnesium 1.9, Total Bilirubin 1.00, Direct Bilirubin 0.24, AST 7 L, ALT 14 L, Alkaline Phosphatase 115, Total Protein 6.0 L , Albumin 3.3, Globulin 2.7, Lipase 52 L 06/16/22 22:20: Acetone Level SMALL H 06/16/22 22:20: Lactic Acid 1.4 06/16/22 22:20: Urine Color STRAW, Urine Clarity Clear, Urine pH 6.0, Ur Specific [place] 1.015, Urine Protein 100 H, Urine Glucose (UA) 1000 H, Urine Ketones 150 A*, Urine Occult Blood 25 H, Urine Nitrite Negative, Urine Bilirubin Negative, Urine Urobilinogen Normal, Ur Leukocyte Esterase Negative, Urine RBC 0-5 SEEN, Urine WBC 0 SEEN, Ur Squamous Epith Cells 0 SEEN, Urine Bacteria RARE, Coarse Granular Casts 0-5 SEEN, Urine Mucus 0 SEEN ABG Data ABG results: ABG 06/16/22 22:23 Specimen Type MARILYNN VBG pH 7.29 L VBG pO2 34 VBG HCO3 18 L VBG Total CO2 19 L VBG O2 Sat (Calc) 59 VBG Base Excess -9 L POC Mix VBG pCO2 Pt Tmp 37.4 L O2 Delivery Device Room Air Assessment & Plan Assessment/Plan (1) Diabetic ketoacidosis: (2) Acute hypokalemia: PLAN: Plan 1. Acute intractable nausea and vomiting secondary to early DKA/hyperglycemia Patient has known history of type I DM, insulin-dependent, noncompliant with insulin regimen and follow-up with endocrinology Patient was supposed to take Basal insulin with Premeal insulin as well as insulin sliding scale; he has been taking only insulin sliding scale Patient presented with acidosis, dehydration, ketones in urine but normal anion gap This likely represent early stage of DKA. Admitting blood sugar was 458 Admit to ICU, insulin drip, DKA protocol, apprise counselor consult, BMP every 4h Case management consult for discharge planning -patient needs endocrinology follow-up -patient has been dismissed from several practices secondary to noncompliance 2. Severe hypokalemia, hypomagnesemia secondary to #1 Patient's potassium is 2.5, magnesium 1.9, replaced, recheck per DKA protocol 3. Acute kidney injury, prerenal secondary to #1, Patient presented with creatinine 1.16, baseline creatinine is 0.63 Continue aggressive IV fluids, repeat blood work in a.m. 4. Type I DM, uncontrolled, noncompliant 5. Probable severe protein calorie malnutrition, BMI 23.2, parking attendant consulted 6. Bilateral leg edema, unclear etiology for now, albumin is 3.3, Will check 2D echo 7. DVT prophylaxis -Heparin subcu Charges/Coding Visit Charges Inpatient E&M: 04921 Init Hosp L3
[2022-06-16] MEDS: Potassium Chloride 10mEq/100mL 10 MEQ/100 ML IV.SOLN. 50 MEQ IV BOLUS (23:55)
[2022-06-17] VITALS (16 sets, daily range): BP systolic 88–116; BP diastolic 47–72; PULSE 76–98; RESP 10–19; TEMP 36.4–36.6; O2SAT 97–100; BMI 18.8
--- NOTE | 2022-06-17 01:02 | ECHOD_ITS ---
Reason For Study: OTHER SINUS TACHY, DKA Procedure This was a 2D Doppler, Color Flow transthoracic echocardiogram. Exam performed portable in ICU/CCU. Left Ventricle Normal LV size. Left ventricular systolic function is normal. The estimated ejection fraction is 55 %. No regional wall motion abnormalities noted. Right Ventricle Normal RV size. Normal systolic function. Atria Normal left atrium. Normal right atrium. Mitral Valve Normal mitral valve. Tricuspid Valve Normal tricuspid valve. Mild tricuspid valve insufficiency. Aortic Valve Normal aortic valve. Pulmonic Valve Normal pulmonic valve. Great Vessels Normal aortic root. The pulmonary artery is normal size. Normal inferior vena cava. Pericardium/Pleural No pericardial effusion. MMode/2D Measurements & Calculations LVIDd: 4.1 cm IVSd: 0.93 cm Ao root diam: 2.9 cm LVIDs: 2.5 cm LVPWd: 1.0 cm RVDd: 2.6 cm FS: 37.7 % LAV(MOD-bp): 50.3 ml LA A4 area: 17.2 cm2 LA dimension(2D): 3.3 cm LAV(MOD-bp) Indexed: 24.7 ml/m2 LAV(MOD-sp2): 54.9 ml LAV(MOD-sp4): 45.0 ml RA A4 area: 11.7 cm2 Time Measurements MV dec time: 0.19 sec Doppler Measurements & Calculations MV E max trev: 78.2 cm/sec Lat Peak E' Trev: 15.6 cm/sec Med Peak E' Trev: 11.4 cm/sec MV A max trev: 47.5 cm/sec E/E' lat: 5.0 E/E' med: 6.8 MV E/A: 1.6 MV dec slope: 415.3 cm/sec2 Ao V2 max: 93.2 cm/sec LV V1 max: 88.0 cm/sec Ao max P.5 mmHg LV V1 max P.1 mmHg Ao V2 mean: 62.7 cm/sec LV V1 mean P.6 mmHg Ao mean P.8 mmHg LV V1 mean: 58.2 cm/sec Ao V2 VTI: 18.9 cm LV V1 VTI: 18.0 cm PA V2 max: 70.8 cm/sec TR max trev: 202.8 cm/sec TR max P.4 mmHg ECHO/Echo Complete Interpretation Summary Normal LV size. Left ventricular systolic function is normal. The estimated ejection fraction is 55 %. Ordering Physician: Kellee Kelly Referring Physician: Karri Momin Performed By: Laurie Springer RDCS, RVT
[2022-06-17] MEDS: 0.9% Normal Saline 1,000 ML 500 ML IV (01:20)
[2022-06-17] MEDS: Potassium Chloride 10mEq/100mL 10 MEQ/100 ML IV.SOLN. 50 MEQ IV BOLUS ×2 (01:20→02:24)
[2022-06-17 02:27] LABS: Anion Gap 6 (5-15); BUN 6 mg/dL (7-18); BUN/Creat Ratio 6.9 RATIO (10-20); Calcium,Total 7.6 mg/dL (8.5-10.1); Chloride 110 mmol/L (98-107); Creatinine, Serum 0.86 mg/dL (0.70-1.30); EST Glomerular Filtration Rate 118 mL/min (>60); Est Glom Filt Rate - Afr Amer 143 mL/min (>60); Estimated Creatinine Clearance 124.15 ml/min; Glucose 245 mg/dL (74-106); Potassium 2.2 mmol/L (3.5-5.1); Sodium Level 138 mmol/L (136-145)
--- NOTE | 2022-06-17 03:09 | NURSING ---
Spoke with hospitalist (Dr. Kelly) once BMP came back. Discussed that since it was not DKA insulin gtt should be stopped and we will manage with aggressive potassium and fluid replacement. Next BMP to be drawn at 0500 and we will discuss further care at that time.
[2022-06-17 03:21] LABS: Bedside Glucose 214 mg/dL (74-106)
[2022-06-17 03:21] LABS: Bedside Glucose 287 mg/dL (74-106)
[2022-06-17] MEDS: 0.9% Normal Saline 1,000 ML 250 ML IV (03:27)
[2022-06-17] MEDS: Potassium Chloride 10mEq/100mL 10 MEQ/100 ML IV.SOLN. 100 MEQ IV BOLUS ×4 (03:29→06:52)
[2022-06-17 04:53] LABS: Absolute Neutrophil Count 1.9 X10^3/uL (2.0-7.7); Basophil# 0.03 X10^3/uL; Basophil% 0.8 % (0-1); Eosinophils% 2.5 % (0-5); Hematocrit 30.9 % (40-54); Hemoglobin 11.6 g/dL (13.0-16.5); Mean Corp Hgb Conc 37.5 g/dL (32-36); Mean Corpuscular Hgb 30.8 pg (27.0-32.0); Mean Platelet Vol. 9.2 fl (6.2-12.0); Monocyte# 0.51 X10^3/uL; Monocyte% 12.8 % (0-10); NRBC Flagged by Analyzer 0 % (0-5); Neutrophil # 1.93 X10^3/uL (2.7-7.7); Neutrophil % 48.1 % (47-70); Platelet Count 221 K/mm3 (150-450); RBC Distribution Width SD 41.1 fl (35.1-43.9); Red Blood Count 3.77 M/mm3 (4.6-6.2)
[2022-06-17 05:21] LABS: ALB/GLOB Ratio 1.3 RATIO (0.9-2.4); AST(SGOT) 13 U/L (15-37); Alanine Aminotransfer ALT/SGPT 16 U/L (16-61); Albumin, Serum 2.9 g/dL (3.2-5.0); Alkaline Phosphatase 97 U/L (45-117); Anion Gap 8 (5-15); BUN 6 mg/dL (7-18); BUN/Creat Ratio 8.8 RATIO (10-20); Calcium,Total 7.4 mg/dL (8.5-10.1); Chloride 111 mmol/L (98-107); Creatinine, Serum 0.68 mg/dL (0.70-1.30); EST Glomerular Filtration Rate 156 mL/min (>60); Est Glom Filt Rate - Afr Amer 189 mL/min (>60); Estimated Creatinine Clearance 157.01 ml/min; Globulin 2.3 g/dL (2.2-4.2); Glucose 204 mg/dL (74-106); Magnesium 2.2 mg/dL (1.6-2.6); Potassium 3.1 mmol/L (3.5-5.1); Protein, Total 5.2 g/dL (6.4-8.2); Sodium Level 138 mmol/L (136-145)
[2022-06-17 05:22] LABS: Phosphorus 1.2 mg/dL (2.5-4.9)
[2022-06-17 06:10] LABS: Bedside Glucose 203 mg/dL (74-106)
[2022-06-17] MEDS: Insulin Lispro 100 UNIT/ML INSULN.PEN 15 UNIT SC ×2 (06:49→12:15)
[2022-06-17] MEDS: Insulin Lispro 100 UNIT/ML INSULN.PEN SC ×3 (06:50→13:34)
[2022-06-17] MEDS: Heparin Injection (Vial) 5,000 UNIT/ML VIAL 5000 UNIT SC (06:50)
[2022-06-17 07:15] LABS: Bedside Glucose 262 mg/dL (74-106)
--- NOTE | 2022-06-17 07:24 | PCM.PN.HOSP ---
Objective Data Objective Data Vital Signs: Vital Signs Temp Pulse Resp BP Pulse Ox O2 Del Method 97.5 F L 79 11 L 96/59 L 100 Room Air 06/17/22 04:00 06/17/22 07:00 06/17/22 07:00 06/17/22 07:00 06/17/22 07:00 06/17/22 07:00 Oxygen Delivery Method Room Air Weight: 146 lb 2.664 oz Body Mass Index (BMI) 18.8 Intake & Output: Intake and Output for Last 24 Hours 06/15/22 06/16/22 06/17/22 23:59 23:59 23:59 Intake Total 1000 / 1000 1640.59 / 1640.59 Output Total 950 / 950 Balance 1000 / 1000 690.59 / 690.59 Lab / Micro Data Result Diagrams: 06/17/22 04:40 06/17/22 04:40 Labs: Laboratory Results - last 24 hr 06/16/22 22:20: WBC 4.0 L, RBC 4.31 L, Hgb 13.0, Hct 35.4 L, MCV 82.1, MCH 30.2, MCHC 36.7 H, RDW Std Deviation 40.7, RDW Coeff of Rabia 13.8, Plt Count 259, MPV 9.5, Immature Gran % (Auto) 0.500, Neut % (Auto) 62.6, Lymph % (Auto) 22.6, [place] % (Auto) 12.0 H, Eos % (Auto) 1.8, Baso % (Auto) 0.5, Absolute Neuts (auto) 2.5, Absolute Lymphs (auto) 0.90, Nucleated RBC % 0 06/16/22 22:20: Sodium 133 L, Potassium 2.5 L*, Chloride 103, Carbon Dioxide 20.0 L, Anion Gap 10, BUN 6 L, Creatinine 1.16, Estim Creat Clear Calc 113.75, Est GFR (MDRD) Af Amer 102, Est GFR (MDRD) Non-Af 84, BUN/Creatinine Ratio 5.2 L, Glucose 458 H*, Calcium 8.3 L, Magnesium 1.9, Total Bilirubin 1.00, Direct Bilirubin 0.24, AST 7 L, ALT 14 L, Alkaline Phosphatase 115, Total Protein 6.0 L, Albumin 3.3, Globulin 2.7, Lipase 52 L 06/16/22 22:20: Acetone Level SMALL H 06/16/22 22:20: Lactic Acid 1.4 06/16/22 22:20: Urine Color STRAW, Urine Clarity Clear, Urine pH 6.0, Ur Specific [place] 1.015, Urine Protein 100 H, Urine Glucose (UA) 1000 H, Urine Ketones 150 A*, Urine Occult Blood 25 H, Urine Nitrite Negative, Urine Bilirubin Negative, Urine Urobilinogen Normal, Ur Leukocyte Esterase Negative, Urine RBC 0-5 SEEN, Urine WBC 0 SEEN, Ur Squamous Epith Cells 0 SEEN, Urine Bacteria RARE, Coarse Granular Casts 0-5 SEEN, Urine Mucus 0 SEEN 06/17/22 00:52: POC Glucose 287 H 06/17/22 02:00: Sodium 138, Potassium 2.2 L*, Chloride 110 H, Carbon Dioxide 22.0, Anion Gap 6, BUN 6 L, Creatinine 0.86, Estim Creat Clear Calc 124.15, Est GFR (MDRD) Af Amer 143, Est GFR (MDRD) Non-Af 118, BUN/Creatinine Ratio 6.9 L, Glucose 245 H, Calcium 7.6 L 06/17/22 02:01: POC Glucose 214 H 06/17/22 03:02: POC Glucose 203 H 06/17/22 04:40: Sodium 138, Potassium 3.1 L, Chloride 111 H, Carbon Dioxide 19.0 L, Anion Gap 8, BUN 6 L, Creatinine 0.68 L, Estim Creat Clear Calc 157.01, Est GFR (MDRD) Af Amer 189, Est GFR (MDRD) Non-Af 156, BUN/Creatinine Ratio 8.8 L, Glucose 204 H, Calcium 7.4 L, Magnesium 2.2, Total Bilirubin 0.70, AST 13 L, ALT 16, Alkaline Phosphatase 97, Total Protein 5.2 L, Albumin 2.9 L, Globulin 2.3, Albumin/Globulin Ratio 1.3 06/17/22 04:40: WBC 4.0 L, RBC 3.77 L, Hgb 11.6 L, Hct 30.9 L, MCV 82.0, MCH 30.8, MCHC 37.5 H, RDW Std Deviation 41.1, RDW Coeff of Rabia 14.0, Plt Count 221, MPV 9.2, Immature Gran % (Auto) 0.800, Neut % (Auto) 48.1, Lymph % (Auto) 35.0, [place] % (Auto) 12.8 H, Eos % (Auto) 2.5, Baso % (Auto) 0.8, Absolute Neuts (auto) 1.9 L, Absolute Lymphs (auto) 1.40, Nucleated RBC % 0 06/17/22 04:40: Phosphorus 1.2 L 06/17/22 06:48: POC Glucose 262 H ABG Data ABG results: ABG 06/16/22 22:23 Specimen Type MARILYNN VBG pH 7.29 L VBG pO2 34 VBG HCO3 18 L VBG Total CO2 19 L VBG O2 Sat (Calc) 59 VBG Base Excess -9 L POC Mix VBG pCO2 Pt Tmp 37.4 L O2 Delivery Device Room Air Assessment & Plan Assessment/Plan (1) Diabetic ketoacidosis: (2) Acute hypokalemia: PLAN: Plan 1. Acute intractable nausea and vomiting secondary to early DKA/hyperglycemia Patient has known history of type I DM, insulin-dependent, noncompliant with insulin regimen and follow-up with endocrinology Patient was supposed to take Basal insulin with Premeal insulin as well as insulin sliding scale; he has been taking only insulin sliding scale Patient presented with acidosis, dehydration, ketones in urine but normal anion gap This likely represent early stage of DKA. Admitting blood sugar was 458 Admit to ICU, insulin drip, DKA protocol, instructional support services director consult, BMP every 4h Case management consult for discharge planning -patient needs endocrinology follow-up -patient has been dismissed from several practices secondary to noncompliance 2. Severe hypokalemia, hypomagnesemia secondary to #1 06/17: Patient current glucose is in 200s. Most recent potassium 3.1, phosphorus 1.2 and magnesium 2.2. IV potassium phosphate ordered. 3. Acute kidney injury, prerenal secondary to #1, Patient presented with creatinine 1.16, baseline creatinine is 0.63 Continue aggressive IV fluids, repeat blood work in a.m. 4. Type I DM, uncontrolled, noncompliant 5. Probable severe protein calorie malnutrition, BMI 23.2, wastewater treatment plant instructor consulted 6. Bilateral leg edema, unclear etiology for now, albumin is 3.3, Will check 2D echo 7. DVT prophylaxis -Heparin subcu
[2022-06-17] MEDS: 0.9% Normal Saline 1,000 ML 125 ML IV (07:54)
--- NOTE | 2022-06-17 08:02 | CON.PCM.CC_ITS ---
Assessment & Plan Assessment/Plan (1) Acute hypokalemia: PLAN: Plan RECOMMENDATIONS: 1. Aggressive electrolyte repletion 2. Consider transition to basal insulin with sliding scale 3. Aggressive hydration 4. Likely okay to discharge later today once electrolytes are normalized IMPRESSIONS: 1. Acute hypokalemia and hypophosphatemia/hyperglycemia/diabetes mellitus type 1 Patient may have been progressing towards DKA, but did not reach technical definition. Patient is reporting compliance, but clinical suspicion is for an elevated glucose load leading to current findings. No alcohol level was obtained. Aggressive resuscitation of electrolytes would be appropriate. Patient can likely be transition back to basal insulin. Clinical suspicion is that patient can be discharged later today once electrolytes have been normalized. Patient has been resistant to diabetic teaching in the past 2. Reported asthma/history of noncompliance/poor insight Complicates care, management, recovery and prognosis. No concern for asthma exacerbation at this time. Could consider developing outpatient plan for rapid follow-up with PCP. HPI Consult Data Date of Consult: 06/17/22 HPI Narrative Reason for Consultation: Possible DKA HPI Narrative: SHIRA STEPHENSON is a 21 M, with past medical history listed below and well-known to me from multiple admissions, who presents to [facility] on 06/16/2022 secondary to nausea and vomiting multiple times. Patient has been admitted multiple times in the last 6 months secondary to DKA. Patient does have a chronic leg wound leading to severely difficult to control diabetes. Patient reportedly has been compliant with medications, but had a blood sugar over 400 so he came in for evaluation. Patient denied any sick contacts, diarrhea, fever, chills or productive cough. In the ER, patient was afebrile, slightly tachycardic at 116 and had a blood pressure of 96/66. Patient saturating well on room air. Laboratory work-up was relatively unremarkable except for a white blood cell count of 4, bicarbonate of 20, potassium of 2.5 and a glucose of 458. Patient's anion gap was normal at 10 and liver function studies were relatively unremarkable. Patient did have small acetone noted. Lactate was within normal limits. Patient did have ketones in his urine and a VBG showed a pH of 7.29. Patient was placed on insulin drip, electrolyte replacement and admitted to the unit. Patient states that he feels subjectively slightly improved compared to previous. Patient is not reporting any significant nausea at this time. Patient is not having any chest pain, abdominal pain or wound pain. Patient has not reported any recent fevers. Patient states he has been compliant with his medications as ordered. Review of systems otherwise negative from a constitu tional, HEENT, respiratory, cardiovascular, GI, genitourinary, musculoskeletal, skin, neurologic, psychiatric and hematologic system unless stated above. [facility] Medical History Asthma Diabetes Diabetes mellitus type 1 Diabetic ketoacidosis associated with type 1 diabetes mellitus femur surgery GERD (gastroesophageal reflux disease) Hypokalemia Kidney disease Lower extremity edema Nausea and vomiting Non-smoker Noncompliance Noncompliance Nonhealing surgical wound Psychosocial problem Sinus tachycardia seen on [place] operator Ulcer of leg, chronic Wound of left lower extremity Home Medications blood sugar diagnostic (OneTouch Verio test strips) #200 ea 09/08/21 [Rx Last Taken Unknown] pen needle, diabetic 32 gauge x 5/32 (BD Ultra-Fine Lorin Pen Needle) #360 ea 09/08/21 [Rx Last Taken Unknown] flash glucose sensor (FreeStyle Niru 14 Day Sensor kit) #2 ea 10/11/21 [Rx Last Taken Unknown] insulin glargine 100 unit/mL (3 mL) subcutaneous pen (Lantus Solostar U-100 Insulin) 45 unit (0.45 mL) subcut QHS blood sugar #3 mL 03/27/22 [Rx Last Taken 05/09/22] insulin lispro 100 unit/mL subcutaneous pen 25 unit (0.25 mL) subcut TIDCM blood sugar #1 mL 03/27/22 [Rx Last Taken 05/10/22] potassium chloride 20 mEq tablet,extended release(part/cryst) (Klor-Con M) 20 meq PO BID #60 tabs 05/12/22 [Rx Last Taken Unknown] Allergy/AdvReac Type Severity Reaction Status Date / Time Milk Containing Products AdvReac Diarrhea Verified 06/16/22 21:39 Family History Father Polysubstance overdose Patient father young secondary to OD. Mother Iron deficiency anemia Other Asthma CVA (cerebral vascular accident) Diabetes Hypertension Thyroid disorder Surgical History H/O right knee surgery History of surgery on extremity Hx of knee surgery Social History housing: other details: Lives with his grandmother, aunt and mother. Smoking Status: Never smoker alcohol intake: current alcohol intake frequency: a few times a month substance use type: does not use ROS ROS Narrative See HPI Physical Exam Const alert, oriented x3, no apparent distress and average body habitus Constitutional Narrative: Thin male resting comfortably General Appearance: cooperative, comfortable, well kempt and well developed Orientation / Consciousness: awake Exam Limitations: no limitations Nutritional Appearance: thin HEENT normocephalic, head/scalp atraumatic, hearing grossly normal bilaterally and moist oral mucous membranes HEENT Narrative: Mallampati 2, no thrush, dentition is poor Eyes PERRL, EOMs intact bilaterally and conjunctivae normal Eyes Narrative: No scleral icterus Neck no lymphadenopathy, supple, no JVD and no carotid bruits Neck Narrative: Trachea midline, no thyroid enlargement Resp normal respiratory effort, no retractions, no use of accessory muscles and clear to auscultation bilaterally Auscultation: Negative for crackles, rales, rhonchi or wheezes Cardio regular rate, regular rhythm, S1 normal heart sound, S2 normal heart sound, no murmurs, no rub, no gallops, no clicks and no JVD GI normal to inspection, nondistended, normoactive bowel sounds, soft to palpation, non-tender and non-distended; Negative for hepatosplenomegaly Extremity no clubbing, cyanosis or edema Extremity Narrative: 2+ pedal pulses-decreased lean muscle mass Skin no rashes or lesions noted, skin turgor normal, no jaundice, no petechiae and no mottling Skin Narrative: Leg wound noted. General Skin Exam: no breakdown Hair: other Dyed pink Neuro oriented x3, CN's II-XII intact bilaterally, moves all extremities and no focal motor deficits Sensorium / Orientation: awake, alert, oriented to person, oriented to place and oriented to time Speech: speech normal Motor Exam: strength 5/5 throughout Psych Psych Narrative: Flat affect with depressed mood Mood & Affect: depressed Lab / Micro Data Result Diagrams: 06/17/22 04:40 06/17/22 04:40 Labs: Laboratory Results - last 24 hr 06/16/22 22:20: WBC 4.0 L, RBC 4.31 L, Hgb 13.0, Hct 35.4 L, MCV 82.1, MCH 30.2, MCHC 36.7 H, RDW Std Deviation 40.7, RDW Coeff of Rabia 13.8, Plt Count 259, MPV 9.5, Immature Gran % (Auto) 0.500, Neut % (Auto) 62.6, Lymph % (Auto) 22.6, [place] % (Auto) 12.0 H, Eos % (Auto) 1.8, Baso % (Auto) 0.5, Absolute Neuts (auto) 2.5, Absolute Lymphs (auto) 0.90, Nucleated RBC % 0 06/16/22 22:20: Sodium 133 L, Potassium 2.5 L*, Chloride 103, Carbon Dioxide 20.0 L, Anion Gap 10, BUN 6 L, Creatinine 1.16, Estim Creat Clear Calc 113.75, Est GFR (MDRD) Af Amer 102, Est GFR (MDRD) Non-Af 84, BUN/Creatinine Ratio 5.2 L , Glucose 458 H*, Calcium 8.3 L, Magnesium 1.9, Total Bilirubin 1.00, Direct Bilirubin 0.24, AST 7 L, ALT 14 L, Alkaline Phosphatase 115, Total Protein 6.0 L , Albumin 3.3, Globulin 2.7, Lipase 52 L 06/16/22 22:20: Acetone Level SMALL H 06/16/22 22:20: Lactic Acid 1.4 06/16/22 22:20: Urine Color STRAW, Urine Clarity Clear, Urine pH 6.0, Ur Specific [place] 1.015, Urine Protein 100 H, Urine Glucose (UA) 1000 H, Urine Ketones 150 A*, Urine Occult Blood 25 H, Urine Nitrite Negative, Urine Bilirubin Negative, Urine Urobilinogen Normal, Ur Leukocyte Esterase Negative, Urine RBC 0-5 SEEN, Urine WBC 0 SEEN, Ur Squamous Epith Cells 0 SEEN, Urine Bacteria RARE, Coarse Granular Casts 0-5 SEEN, Urine Mucus 0 SEEN 06/17/22 00:52: POC Glucose 287 H 06/17/22 02:00: Sodium 138, Potassium 2.2 L*, Chloride 110 H, Carbon Dioxide 22.0, Anion Gap 6, BUN 6 L, Creatinine 0.86, Estim Creat Clear Calc 124.15, Est GFR (MDRD) Af Amer 143, Est GFR (MDRD) Non-Af 118, BUN/Creatinine Ratio 6.9 L, Glucose 245 H, Calcium 7.6 L 06/17/22 02:01: POC Glucose 214 H 06/17/22 03:02: POC Glucose 203 H 06/17/22 04:40: Sodium 138, Potassium 3.1 L, Chloride 111 H, Carbon Dioxide 19.0 L, Anion Gap 8, BUN 6 L, Creatinine 0.68 L, Estim Creat Clear Calc 157.01, Est GFR (MDRD) Af Amer 189, Est GFR (MDRD) Non-Af 156, BUN/Creatinine Ratio 8.8 L, Glucose 204 H, Calcium 7.4 L, Magnesium 2.2, Total Bilirubin 0.70, AST 13 L, ALT 16, Alkaline Phosphatase 97, Total Protein 5.2 L, Albumin 2.9 L, Globulin 2.3, Albumin/Globulin Ratio 1.3 06/17/22 04:40: WBC 4.0 L, RBC 3.77 L, Hgb 11.6 L, Hct 30.9 L, MCV 82.0, MCH 30.8, MCHC 37.5 H, RDW Std Deviation 41.1, RDW Coeff of Rabia 14.0, Plt Count 221, MPV 9.2, Immature Gran % (Auto) 0.800, Neut % (Auto) 48.1, Lymph % (Auto) 35.0, [place] % (Auto) 12.8 H, Eos % (Auto) 2.5, Baso % (Auto) 0.8, Absolute Neuts (auto) 1.9 L, Absolute Lymphs (auto) 1.40, Nucleated RBC % 0 06/17/22 04:40: Phosphorus 1.2 L 06/17/22 06:48: POC Glucose 262 H ABG Data ABG results: ABG 06/16/22 22:23 Specimen Type MARILYNN VBG pH 7.29 L VBG pO2 34 VBG HCO3 18 L VBG Total CO2 19 L VBG O2 Sat (Calc) 59 VBG Base Excess -9 L POC Mix VBG pCO2 Pt Tmp 37.4 L O2 Delivery Device Room Air Charges/Coding Visit Charges Inpatient E&M: 78700 Init Hosp L2
--- NOTE | 2022-06-17 09:24 | DCINST_ITS ---
Discharge Instructions Diet Discharge Diet: 1800 Calorie Control Diet Activity Discharge Activity: May Not Drive (for 2 days. DKA) Dressing / Incision Call your doctor if you observe: Fever of 101 or Higher, Coldness, Increased Pain, Numbness or Tingling, Change in Color, Inability to urinate, Inability to have a bowel movement, Shortness of breath, Dizziness, Fainting spells, Swelling in the ankles, Chest pain, Prolonged hiccupping, Increased palpitations (irregular heartbeat), Calf discomfort and Uncontrolled pain Follow Up Care Test Results: Test results from this visit will be discussed in further detail at your follow- up appointment, if applicable. Discharge Plan Admission Admit Date/Time: 06/16/22 23:41 Primary Reason for Your Visit: DKA with electrolyte abnormality Attending Provider: Tha Uribe Primary Care Provider: Karri Momin Consulting Providers: Kellee Kelly ; Tanmay Ferrell ; Pb Momin ; Judie Jay NP Discharge Orders/Prescriptions Prescriptions: New insulin lispro [Humalog KwikPen Insulin] 100 unit/mL Insulin Pen See Protocol subcut ACHS Qty: 0 0RF Protocol: 1. Sliding Scale Insulin Low Dosing Condition: 150-224 mg/dl = 1 unit Condition: 225-299 mg/dl = 2 units Condition: 300-374 mg/dl = 3 units Condition: 375-499 mg/dl = 4 units Condition: Greater than 449 call physician Protocol Text: - Use for Total Daily Dose of Insulin 15-27 units - Thin, elderly, renal patients LOW DOSING ALGORITHM insulin lispro [Humalog KwikPen Insulin] 100 unit/mL Insulin Pen 25 unit subcut TIDAC Qty: 0 0RF insulin glargine-yfgn 100 unit/mL (3 mL) Insulin Pen 35 unit subcut QHS Qty: 0 0RF Continued (DME) OneTouch Verio test strips Strip See Rx Instructions .ROUTE .MEDSUPPLY Qty: 200 6RF Rx Instructions: 4x/day (DME) pen needle, diabetic [BD Ultra-Fine Lorin Pen Needle] 32 gauge x 5/32 needle See Rx Instructions .ROUTE .MEDSUPPLY Qty: 360 6RF Rx Instructions: As directed (DME) FreeStyle Niru 14 Day Sensor Kit See Rx Instructions .ROUTE .MEDSUPPLY Qty: 2 5RF Rx Instructions: As directed Changed potassium chloride [Klor-Con M20] 20 mEq tablet,ER particles/crystals 40 meq PO BID Qty: 10 0RF Discontinued insulin lispro 100 unit/mL insulin pen 25 unit SUBCUT TIDCM Qty: 1 2RF insulin glargine [Lantus Solostar U-100 Insulin] 100 unit/mL (3 mL) insulin pen 45 unit SUBCUT QHS Qty: 3 2RF Label Comments: INJECT 30U AT BEDTIME Referrals / Follow Up: Karri Momin DO [Primary Care Provider] - Within 1 Week (F/U DKA) Lauro Galindo MD [Med Staff - Courtesy Staff] - Within 2 Weeks (DM-1 with DKA) Disposition Disposition (needs filled in before D/C Order can be placed): Home, Self Care
--- NOTE | 2022-06-17 11:20 | CASEMGMT ---
VERONA FONTANEZ Face to Face with patient for initial transition planning/care coordination assessment. VERONA FONTANEZ introduced self and role at [facility]. Patient lying in bed, alert and oriented. Patient willing to participate in assessment and is able to answer all questions appropriately. Care providers, pharmacy, and demographics verified. Patient wishes to discharge home, denies need for home health at this time. Patient states he has no further needs or concerns at this time. CM to follow for discharge planning needs that may arise. PCP: Patient has yet to get established with new PCP. Patient encouraged to schedule appt on Sunday for follow-up Specialists: none, Dr. Galindo, collections professional, discharged patient from services for not showing up to appts. Preferred Pharmacy: [facility] Insurance: [employer] Prescription Benefit: yes Living Will/HPOA: none LNOK: grandmother, mother, aunt Living Arrangements: Patient patient lives with mother and grandmother with several other family members in a 2 story home. Patient states he is independent and able to ambulate stairs Transportation: grandmother, [facility] van, or transport through insurance. DME/HHC: Patient states he has cane, glucometer and insulin with supplies at home. VERONA FONTANEZ educated patient of scheduling and attending follow-up appts. This RN CM call patient on Sunday to follow-up if appt has been schedule with PCP. Patient voiced understanding. Disposition Plan: Patient to discharge home with family support and follow-up plans in place. Joana MONTEZ, RN, CM
[2022-06-17 12:36] LABS: Bedside Glucose 417 mg/dL (74-106)
[2022-06-17 12:52] LABS: Anion Gap 10 (5-15); BUN 7 mg/dL (7-18); BUN/Creat Ratio 8.7 RATIO (10-20); Calcium,Total 7.7 mg/dL (8.5-10.1); Chloride 108 mmol/L (98-107); Creatinine, Serum 0.81 mg/dL (0.70-1.30); EST Glomerular Filtration Rate 127 mL/min (>60); Est Glom Filt Rate - Afr Amer 154 mL/min (>60); Estimated Creatinine Clearance 135.28 ml/min; Glucose 469 mg/dL (74-106); Potassium 3.2 mmol/L (3.5-5.1); Sodium Level 136 mmol/L (136-145)
--- NOTE | 2022-06-17 13:14 | DS.PCM_ITS ---
Providers Date of Admission: 06/16/22 Date of Discharge: 06/17/22 Primary Care Physician: Dr. Karri Momin, DO Consultations 06/17/22 00:11 Consult: Registered Dental Assistant / Pulmonary Medicine Routine Consulting Provider: Pulmonary Medicine karis Dickinson Reason for Consult: DKA EMERGENT Consult: No MD Notified: Yes Date Notified: 06/17/22 Time Notified: 00:11 Method of Notification: Verbal Reason For Visit: HYPERGLYCEMIA/DKA Diagnosis Discharge Diagnosis (1) Acute hypokalemia: Status: Acute Code(s): E87.6 - Hypokalemia Medications at Discharge Home Medications blood sugar diagnostic (Bergey'such Verio test strips) #200 ea 09/08/21 pen needle, diabetic 32 gauge x 5/32 (BD Ultra-Fine Lorin Pen Needle) #360 ea 09/08/21 flash glucose sensor (FreeStyle Niru 14 Day Sensor kit) #2 ea 10/11/21 insulin glargine-yfgn 100 unit/mL (3 mL) subcutaneous pen 35 unit (0.35 mL) subcut QHS #0 mL 06/17/22 insulin lispro 100 unit/mL subcutaneous pen (Humalog KwikPen (U-100) Insulin) 25 unit (0.25 mL) subcut TIDAC #0 mL 06/17/22 insulin lispro 100 unit/mL subcutaneous pen (Humalog KwikPen (U-100) Insulin) See Protocol subcut ACHS #0 mL 06/17/22 potassium chloride 20 mEq tablet,extended release(part/cryst) (Klor-Con M) 40 meq PO BID #10 tabs 06/17/22 Hospital Course Summary of Care Provided Hospital Course: This is a 21-year-old gentleman with history of DKA, multiple admission for same came to ED with nausea and vomiting, decreased appetite and dehydrated. Labs suggestive of DKA. Patient did not take his Lantus insulin. Patient was admitted with a diagnosis of DKA. His further hospital course and management as follows 1. Diabetes mellitus type 1 with hyperglycemia, severe hypokalemia, hypophosphatemia and hypomagnesemia: Patient was progressing towards DKA but did not satisfy the criteria and definition of DKA. Patient bicarbonate was 20, K 2.5, glucose 458, anion gap normal 10. Lactic acid normal limit. VBG 7.29. Patient was started on insulin ip and IV fluid regimen. Electrolytes were replaced. Repeat magnesium normal. Patient well-hydrated. Patient is on diet, although appetite is decreased. Patient Lantus insulin dose and Humalog insulin dose adjusted as per Accu-Cheks. Advised to continue Accu-Chek before meals and at bedtime and follow with PCP in 1 week to adjust insulin. Encouraged follow- up with help desk support, Dr. Lauro Galindo . Repeat potassium 3.2. Glucose high, covered with Humalog sliding scale. Prescription for Humalog insulin, Lantus insulin and potassium supplement sent to the patient's pharmacy. Medications directly talked with the pharmacist. 2. Acute kidney injury, prerenal due to hypovolemia: Patient is well-hydrated. RADHA resolved. Repeat creatinine 0.68. 3. Chronic severe malnutrition due to inconsistent energy intake, low calorie, evidenced by unintentional weight loss of 6.7 daily/9% weight loss in last 3 months. Estimated p.o. intake less than 75% of estimated energy need for more than 3 months. Recommendation and treatment: Continue consistent carb controlled diet. Increase to 2200-calorie and provide 4 ounce Glucerna with meals. 4. Reported history of asthma, nonadherence to diet and insulin: Degenerates into multiple recurrent admission for DKA and uncontrolled hyperglycemia. Physical Exam Narrative Seen and examined. Patient did not take his Lantus insulin for 2 doses. After that he felt nauseated. Prior to that event he was having loss of appetite not eating well. Denies fever chills or acute infection, URI or dysuria/UTI Seen and examined General: Alert, Oriented x3, Cooperative, lean and thin, BMI 93 kg/m?. Well- hydrated. No fever HEENT: Atraumatic, PERRLA, EOMI, Normocephalic Oral: Oral mucosa moist. No Gingival or Mucosal Lesions/ Ulcerations Neck: Supple, No JVD, Negative Carotid Bruits Lungs: Air entry equal in bilateral lung bases. No crepitation/rhonchi Cardiovascular: Regular rate, Regular Rhythm, Normal S1, Normal S2, No murmurs Abdomen: Bowel Sounds Present, Soft, Non Tender, Non-Distended : No renal angle tenderness. No suprapubic tenderness. Extremities: No edema, Capillary Refill Less than 3 Seconds Skin: chronic left thigh wound/boil, healed. Probably it was boil. Musculoskeletal: No Tenderness to Palpation of Joints or Extremities Neurological: Cranial nerves II-XII grossly intact, DTR 2+/4 and Symmetrical, Neuro grossly intact Psych/Mental Status: Flat affect. Weight / BMI Weight Weight: 146 lb 2.664 oz Body Mass Index (BMI) 18.8 ABG / Lab / Microbiology Data Result Diagrams: 06/17/22 04:40 06/17/22 12:15 Laboratory: Laboratory Results - last 24 hr 06/16/22 22:20: WBC 4.0 L, RBC 4.31 L, Hgb 13.0, Hct 35.4 L, MCV 82.1, MCH 30.2, MCHC 36.7 H, RDW Std Deviation 40.7, RDW Coeff of Rabia 13.8, Plt Count 259, MPV 9.5, Immature Gran % (Auto) 0.500, Neut % (Auto) 62.6, Lymph % (Auto) 22.6, [place] % (Auto) 12.0 H, Eos % (Auto) 1.8, Baso % (Auto) 0.5, Absolute Neuts (auto) 2.5, Absolute Lymphs (auto) 0.90, Nucleated RBC % 0 06/16/22 22:20: Sodium 133 L, Potassium 2.5 L*, Chloride 103, Carbon Dioxide 20.0 L, Anion Gap 10, BUN 6 L, Creatinine 1.16, Estim Creat Clear Calc 113.75, Est GFR (MDRD) Af Amer 102, Est GFR (MDRD) Non-Af 84, BUN/Creatinine Ratio 5.2 L , Glucose 458 H*, Calcium 8.3 L, Magnesium 1.9, Total Bilirubin 1.00, Direct [place] 0.24, AST 7 L, ALT 14 L, Alkaline Phosphatase 115, Total Protein 6.0 L, Albumin 3.3, Globulin 2.7, Lipase 52 L 06/16/22 22:20: Acetone Level SMALL H 06/16/22 22:20: Lactic Acid 1.4 06/16/22 22:20: Urine Color STRAW, Urine Clarity Clear, Urine pH 6.0, Ur Specific [place] 1.015, Urine Protein 100 H, Urine Glucose (UA) 1000 H, Urine Ketones 150 A*, Urine Occult Blood 25 H, Urine Nitrite Negative, Urine Bilirubin Negative, Urine Urobilinogen Normal, Ur Leukocyte Esterase Negative, Urine RBC 0-5 SEEN, Urine WBC 0 SEEN, Ur Squamous Epith Cells 0 SEEN, Urine Bacteria RARE, Coarse Granular Casts 0-5 SEEN, Urine Mucus 0 SEEN 06/17/22 00:52: POC Glucose 287 H 06/17/22 02:00: Sodium 138, Potassium 2.2 L*, Chloride 110 H, Carbon Dioxide 22.0, Anion Gap 6, BUN 6 L, Creatinine 0.86, Estim Creat Clear Calc 124.15, Est GFR (MDRD) Af Amer 143, Est GFR (MDRD) Non-Af 118, BUN/Creatinine Ratio 6.9 L, Glucose 245 H, Calcium 7.6 L 06/17/22 02:01: POC Glucose 214 H 06/17/22 03:02: POC Glucose 203 H 06/17/22 04:40: Sodium 138, Potassium 3.1 L, Chloride 111 H, Carbon Dioxide 19.0 L, Anion Gap 8, BUN 6 L, Creatinine 0.68 L, Estim Creat Clear Calc 157.01, Est GFR (MDRD) Af Amer 189, Est GFR (MDRD) Non-Af 156, BUN/Creatinine Ratio 8.8 L, Glucose 204 H, Calcium 7.4 L, Magnesium 2.2, Total Bilirubin 0.70, AST 13 L, ALT 16, Alkaline Phosphatase 97, Total Protein 5.2 L, Albumin 2.9 L, Globulin 2.3, Albumin/Globulin Ratio 1.3 06/17/22 04:40: WBC 4.0 L, RBC 3.77 L, Hgb 11.6 L, Hct 30.9 L, MCV 82.0, MCH 30.8, MCHC 37.5 H, RDW Std Deviation 41.1, RDW Coeff of Rabia 14.0, Plt Count 221, MPV 9.2, Immature Gran % (Auto) 0.800, Neut % (Auto) 48.1, Lymph % (Auto) 35.0, [place] % (Auto) 12.8 H, Eos % (Auto) 2.5, Baso % (Auto) 0.8, Absolute Neuts (auto) 1.9 L, Absolute Lymphs (auto) 1.40, Nucleated RBC % 0 06/17/22 04:40: Phosphorus 1.2 L 06/17/22 06:48: POC Glucose 262 H ABG: ABG 06/16/22 22:23 Specimen Type MARILYNN VBG pH 7.29 L VBG pO2 34 VBG HCO3 18 L VBG Total CO2 19 L VBG O2 Sat (Calc) 59 VBG Base Excess -9 L POC Mix VBG pCO2 Pt Tmp 37.4 L O2 Delivery Device Room Air D/C Instructions Discharge Diet: 1800 Calorie Control Diet Call your doctor if you observe: Fever of 101 or Higher, Coldness, Increased Pain, Numbness or Tingling, Change in Color, Inability to urinate, Inability to have a bowel movement, Shortness of breath, Dizziness, Fainting spells, Swelling in the ankles, Chest pain, Prolonged hiccupping, Increased palpitations (irregular heartbeat), Calf discomfort and Uncontrolled pain Meaningful Use Info Meaningful Use Diagnoses (Choose all that apply): None applicable Discharge Plan Admission Admit Date/Time: 06/16/22 23:41 Primary Reason for Your Visit: DKA with electrolyte abnormality Attending Provider: Tha Uribe Primary Care Provider: Karri Momin Consulting Providers: Kellee Kelly ; Tanmay Ferrell ; Pb Momin ; Judie Jay ELECTRICAL AND INSTRUMENTATION MECHANIC Discharge Orders/Prescriptions Prescriptions: New insulin lispro [Humalog KwikPen Insulin] 100 unit/mL Insulin Pen See Protocol subcut ACHS Qty: 0 0RF Protocol: 1. Sliding Scale Insulin Low Dosing Condition: 150-224 mg/dl = 1 unit Condition: 225-299 mg/dl = 2 units Condition: 300-374 mg/dl = 3 units Condition: 375-499 mg/dl = 4 units Condition: Greater than 449 call physician Protocol Text: - Use for Total Daily Dose of Insulin 15-27 units - Thin, elderly, renal patients LOW DOSING ALGORITHM insulin lispro [Humalog KwikPen Insulin] 100 unit/mL Insulin Pen 25 unit subcut TIDAC Qty: 0 0RF insulin glargine-yfgn 100 unit/mL (3 mL) Insulin Pen 35 unit subcut QHS Qty: 0 0RF Continued (DME) OneTouch Verio test strips Strip See Rx Instructions .ROUTE .MEDSUPPLY Qty: 200 6RF Rx Instructions: 4x/day (DME) pen needle, diabetic [BD Ultra-Fine Lorin Pen Needle] 32 gauge x 5/32 needle See Rx Instructions .ROUTE .MEDSUPPLY Qty: 360 6RF Rx Instructions: As directed (DME) FreeStyle Niru 14 Day Sensor Kit See Rx Instructions .ROUTE .MEDSUPPLY Qty: 2 5RF Rx Instructions: As directed Changed potassium chloride [Klor-Con M20] 20 mEq tablet,ER particles/crystals 40 meq PO BID Qty: 10 0RF Discontinued insulin lispro 100 unit/mL insulin pen 25 unit SUBCUT TIDCM Qty: 1 2RF insulin glargine [Lantus Solostar U-100 Insulin] 100 unit/mL (3 mL) insulin pen 45 unit SUBCUT QHS Qty: 3 2RF Label Comments: INJECT 30U AT BEDTIME Referrals / Follow Up: Karri Momin DO [Primary Care Provider] - Within 1 Week (F/U DKA) Lauro Galindo MD [Med Staff - Courtesy Staff] - Within 2 Weeks (DM-1 with DKA) Disposition Disposition (needs filled in before D/C Order can be placed): Home, Self Care Charges/Coding Addendum Addendum: Patient was admitted as inpatient but was discharged because of sooner recovery than expected at time of admission. Visit Charges Inpatient E&M: 11565 Disch Hosp
[2022-06-17] MEDS: Potassium Chloride Oral Tablet 20 MEQ 40 MEQ PO (13:34)
== END 2022-06-17 15:52 | disposition home or self-care (01) | DRG 420 ==
LOC: ED 23:54 → ICU 23:59
PROVIDERS: Admitting Provider Internal Medicine; Emergency Provider Emergency Medicine; PCP Family Medicine; Visit Provider Internal Medicine
DX: E10.65 Type 1 diabetes mellitus with hyperglycemia (principal); E43 Unspecified severe protein-calorie malnutrition; N17.9 Acute kidney failure, unspecified; E83.39 Other disorders of phosphorus metabolism; Z79.4 Long term (current) use of insulin; E87.6 Hypokalemia; E86.1 Hypovolemia; E83.42 Hypomagnesemia; Z79.899 Other long term (current) drug therapy; Z68.1 Body mass index [BMI] 19.9 or less, adult; R60.0 Localized edema
CPT/HCPCS: 80048; 80053; 80076; 81001; 82009; 82803; 82962; 83605; 83690; 83735; 84100; 85025; 93306; 97802; 99251; 99284; J7030; J7040; Q9957; A4216; G0463

== ENCOUNTER 2022-07-24 17:05 | Inpatient (IN) | payer MEDICAID, SELFPAY ==
[2022-07-24] VITALS (16 sets, daily range): BP systolic 93–110; BP diastolic 67–84; PULSE 96–115; RESP 16–21; TEMP 36.1–37.3; O2SAT 98–100; BMI 21.1; BMI 20.1
--- NOTE | 2022-07-24 17:26 | EKG12_ITS ---
Test Reason : Blood Pressure : / mmHG Vent. Rate : 105 BPM Atrial Rate : 105 BPM P-R Int : 130 ms QRS Dur : 092 ms QT Int : 350 ms P-R-T Axes : 066 081 070 degrees QTc Int : [address] elevation, consider early repolarization Borderline ECG Confirmed by KEYANA CASTILLO, SEBASTIÁN ([id number]), managing editor AYESHA VALLE ([id number]) on 07/26/2022 8:38:28 AM Referred By: Confirmed By:SEBASTIÁN RIDLEY MD
--- NOTE | 2022-07-24 17:27 | EX.ED.DYSGE1 ---
HPI History of Present Illness Chief Complaint: Hyperglycemia Informant: patient and EMS Narrative Narrative: Patient brought in by EMS from home for unknown amount of time covered with stools. History of diabetes on insulin unclear when he last took his insulin. Cannot tell me how long he has been on the ground. Records note DKA last month. Reported possible COVID due to grandmother having it recently. Complains of some pain left shoulder region. Evaluation noted tape around left toes 2 and 3, he is unclear how long he has been dealing with that. [facility] Medical History (Updated 07/24/22 @ 20:[address] 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 Ulcer of leg, chronic Wound of left lower extremity Home Medications blood sugar diagnostic (OneTouch Verio test strips) #200 ea 09/08/21 [Rx Last Taken Unknown] pen needle, diabetic 32 gauge x 5/32 (BD Ultra-Fine Lorin Pen Needle) #360 ea 09/08/21 [Rx Last Taken Unknown] flash glucose sensor (FreeStyle Niru 14 Day Sensor kit) #2 ea 10/11/21 [Rx Last Taken Unknown] insulin glargine-yfgn 100 unit/mL (3 mL) subcutaneous pen 45 unit subcut QHS DM 07/24/22 [History Last Taken Unknown] insulin lispro 100 unit/mL subcutaneous pen (Humalog KwikPen (U-100) Insulin) 25 unit subcut TIDAC DM 07/24/22 [History Last Taken Unknown] insulin lispro 100 unit/mL subcutaneous pen (Humalog KwikPen (U-100) Insulin) See Protocol subcut ACHS DM 07/24/22 [History Last Taken Unknown] potassium chloride 20 mEq tablet,extended release(part/cryst) (Klor-Con M) 40 meq PO BID supplement 07/24/22 [History Last Taken Unknown] Allergy/AdvReac Type Severity Reaction Status Date / Time Milk Containing Products AdvReac Diarrhea Verified 07/24/22 17:13 Family History Father Polysubstance overdose Patient father young secondary to OD. Mother Iron deficiency anemia Other Asthma CVA (cerebral vascular accident) Diabetes Hypertension Thyroid disorder Surgical History H/O right knee surgery History of surgery on extremity Hx of knee surgery Social History housing: other details: Lives with his grandmother, aunt and mother. Smoking Status: Never smoker alcohol intake: current alcohol intake frequency: a few times a month substance use type: does not use ROS ROS ED Constitutional Constitutional ED: Denies chills, fever(s) or sweats Eyes Eyes: Denies change in vision ENT ENT ED: Denies dysphagia or sore throat Cardiovascular Cardiovascular: Denies chest pain, leg edema, palpitations or racing heartbeat Respiratory/Chest Respiratory/Chest: Denies cough, dyspnea or dyspnea on exertion Gastrointestinal Gastrointestinal: Denies abdominal pain, diarrhea, nausea or vomiting Genitourinary Genitourinary ED: Denies dysuria, hematuria or urinary frequency Musculoskeletal Musculoskeletal: Reports extremity pain and other Details: Left shoulder pain. ; Denies back pain or neck pain Integumentary Denies rash or wounds Neurologic Neurologic: Reports weakness; Denies headache(s) or paresthesias EXAM Physical Exam Const Vital Signs: 07/24/22 17:06 07/24/22 17:10 07/24/22 17:26 Temperature 96.9 F L 96.9 F L Temperature Source Temporal Temporal Pulse Rate 115 H 115 H 113 H Respiratory Rate 18 16 18 Respiratory Effort Respiratory Pattern Blood Pressure 104/67 104/67 102/68 Blood Pressure Mean 79 79 79 Pulse Ox 98 98 99 Oxygen Delivery Method Room Air Room Air Room Air 07/24/22 17:26 07/24/22 17:47 07/24/22 17:48 Temperature 98.7 F Temperature Source Oral Pulse Rate Respiratory Rate Respiratory Effort Normal Respiratory Pattern Normal Blood Pressure Blood Pressure Mean Pulse Ox Oxygen Delivery Method Room Air 07/24/22 18:10 07/24/22 18:40 07/24/22 18:40 Temperature 98.1 F 98.1 F Temperature Source Oral Oral Pulse Rate 106 H 103 H Respiratory Rate 19 H 21 H Respiratory Effort Respiratory Pattern Blood Pressure 110/84 H 98/77 Blood Pressure Mean 92 84 Pulse Ox 100 100 Oxygen Delivery Method Room Air 07/24/22 19:02 Temperature 98.2 F Temperature Source Oral Pulse Rate 106 H Respiratory Rate 20 H Respiratory Effort Respiratory Pattern Blood Pressure 100/78 Blood Pressure Mean 85 Pulse Ox 100 Oxygen Delivery Method Room Air Positive unkempt Constitutional Narrative: Somnolent, arousable General Appearance ED: unkempt HEENT Reports dry mucous membranes normocephalic and atraumatic Mouth ED: Yes dry mucous membranes Mouth: dry mucous membranes Eyes PERRL, EOMs intact bilaterally and conjunctivae normal General Eye ED: Yes normal appearance of both eyes Neck no lymphadenopathy and supple General: Negative for tenderness Chest Wall Chest: Negative for tenderness Resp normal respiratory effort and normal air movement Effort and Inspection: symmetric chest movement; Negative for respiratory distress Cardio regular rhythm and no murmurs Rate: tachycardic Peripheral Pulses: pulses 2+ throughout GI normal to inspection, nondistended, normoactive bowel sounds and non-tender Palpation: Negative for guarding or rebound tenderness present Narrative: Erythema around scrotum bilaterally and groin. No indurations. Back/Spine no CVA tenderness and no thoracic nor lumbar tenderness Extremity Extremity Narrative: 1+ lower extremity edema bilaterally there is erythema mildly both legs below the knee. Left foot toes 2 and 3 ulcerations foul-smelling odor with drainage. No streaking up the foot. General Extremety ED: Yes edema; Negative for tenderness General Extremity: edema Neuro oriented x3 and no sensory deficits noted Sensorium / Orientation: awake and alert Psych Appearance: unkempt Skin no rashes or lesions noted and no wounds MDM MDM MDM Narrative Medical decision making narrative: Patient dry mucosal membranes tachycardic somnolent however arousable. Unclear on downtime on the floor he cannot recall he is ANO x3. No signs of head injury. He is started on IV fluids with tachycardia and dry mucosal membranes total 2 L were ordered. Blood glucose 460s by EMS. In the lab for 99 gap of 24 moderate acetone. CPK normal at 35. CO2 was 7. White count 6.8. He has draining toe ulcer second and third three-view x-ray left foot reviewed myself and read by radiology shows no signs of osteo at this time. Wound cultures were obtained. Reported shoulder pain in the left, 2 view x-ray left shoulder reviewed. Read by radiology shows no fracture or dislocation. 2 view chest x-ray also obtained reviewed by myself and read by radiology negative for any acute process. Patient DKA likely from noncompliance additional concerns for toe infection and cellulitis of the lower extremities. I spoke with hospitalist Dr. Be will only start Zosyn at this time. He will be admitted to ICU. Insulin drip ordered. Cream was applied by nursing to the scrotal fungal wound. Lab Data Attestation: I reviewed the patient's lab results. Labs: Laboratory Results - last 24 hr 07/24/22 07/24/22 07/24/22 17:26 17:30 17:30 WBC 6.8 RBC 4.08 L Hgb 12.5 L Hct 37.1 L MCV 90.9 MCH 30.6 MCHC 33.7 RDW Std Deviation 45.8 H RDW Coeff of Rabia 13.8 Plt Count 277 MPV 9.2 Immature Gran % (Auto) 1.200 H Neut % (Auto) 78.2 H Lymph % (Auto) 9.3 L [place] % (Auto) 7.8 Eos % (Auto) 3.2 Baso % (Auto) 0.3 Absolute Neuts (auto) 5.3 Absolute Lymphs (auto) 0.63 L Nucleated RBC % 0 ESR 59 H PT 14.2 INR 1.1 APTT 31.1 Sodium Potassium Chloride Carbon Dioxide Anion Gap BUN Creatinine Estim Creat Clear Calc Est GFR (MDRD) Af Amer Est GFR (MDRD) Non-Af BUN/Creatinine Ratio Glucose Lactic Acid Calcium Total Bilirubin AST ALT Alkaline Phosphatase Total Creatine Kinase C-React Prot Ext Range Total Protein Albumin Globulin Albumin/Globulin Ratio Urine Color Urine Clarity Urine pH Ur Specific [place] Urine Protein Urine Glucose (UA) Urine Ketones Urine Occult Blood Urine Nitrite Urine Bilirubin Urine Urobilinogen Ur Leukocyte Esterase Urine RBC Urine WBC Ur Squamous Epith Cells Urine Bacteria Urine Mucus Acetone Level POC Glucose 498 H* 07/24/22 07/24/22 07/24/22 17:30 17:30 17:30 WBC RBC Hgb Hct MCV MCH MCHC RDW Std Deviation RDW Coeff of Rabia Plt Count MPV Immature Gran % (Auto) Neut % (Auto) Lymph % (Auto) [place] % (Auto) Eos % (Auto) Baso % (Auto) Absolute Neuts (auto) Absolute Lymphs (auto) Nucleated RBC % ESR PT INR APTT Sodium 138 Potassium 3.5 Chloride 107 Carbon Dioxide 7.0 L* Anion Gap 24 H BUN 14 Creatinine 1.13 Estim Creat Clear Calc 106.19 Est GFR (MDRD) Af Amer 105 Est GFR (MDRD) Non-Af 87 BUN/Creatinine Ratio 12.4 Glucose 499 H* Lactic Acid 1.1 Calcium 9.1 Total Bilirubin 0.90 AST 7 L ALT 18 Alkaline Phosphatase 119 H Total Creatine Kinase 35 L C-React Prot Ext Range 91.20 H Total Protein 7.2 Albumin 2.7 L Globulin 4.5 H Albumin/Globulin Ratio 0.6 L Urine Color Urine Clarity Urine pH Ur Specific [place] Urine Protein Urine Glucose (UA) Urine Ketones Urine Occult Blood Urine Nitrite Urine Bilirubin Urine Urobilinogen Ur Leukocyte Esterase Urine RBC Urine WBC Ur Squamous Epith Cells Urine Bacteria Urine Mucus Acetone Level MODERATE H POC Glucose 07/24/22 07/24/22 17:50 18:43 WBC RBC Hgb Hct MCV MCH MCHC RDW Std Deviation RDW Coeff of Rabia Plt Count MPV Immature Gran % (Auto) Neut % (Auto) Lymph % (Auto) [place] % (Auto) Eos % (Auto) Baso % (Auto) Absolute Neuts (auto) Absolute Lymphs (auto) Nucleated RBC % ESR PT INR APTT Sodium Potassium Chloride Carbon Dioxide Anion Gap BUN Creatinine Estim Creat Clear Calc Est GFR (MDRD) Af Amer Est GFR (MDRD) Non-Af BUN/Creatinine Ratio Glucose Lactic Acid Calcium Total Bilirubin AST ALT Alkaline Phosphatase Total Creatine Kinase C-React Prot Ext Range Total Protein Albumin Globulin Albumin/Globulin Ratio Urine Color Yellow Urine Clarity Clear Urine pH 6.0 Ur Specific [place] 1.015 Urine Protein 30 H Urine Glucose (UA) 1000 H Urine Ketones 150 A* Urine Occult Blood 25 H Urine Nitrite Negative Urine Bilirubin Negative Urine Urobilinogen Normal Ur Leukocyte Esterase Negative Urine RBC 0 SEEN Urine WBC 0-5 SEEN Ur Squamous Epith Cells 0 SEEN Urine Bacteria RARE Urine Mucus 0 SEEN Acetone Level POC Glucose 447 H Radiography Diagnostic Testing: Clinical Impression(s) from Imaging Studies Shoulder X-Ray 07/24/22 17:28 IMPRESSION: No acute fracture or other significant bony pathology. Electronically Signed: Jef Rogers MD at 18:26 EDT , Chest X-Ray 07/24/22 17:29 IMPRESSION: Normal x-ray examination of the chest. Electronically Signed: Jef Rogers MD at 18:24 EDT , Foot X-Ray 07/24/22 18:00 IMPRESSION: Normal x-ray examination of the foot. If strong clinical suspicion for acute osteomyelitis, three-phase bone scan or MRI recommended for further evaluation Electronically Signed: Jef Rogers MD at 18:25 EDT , EKG Initial EKG: Attestation: I personally reviewed and interpreted this EKG as follows: Comments: Sinus rhythm 105, no ST or T wave changes. Early repolarization noted. Critical Care Time Critical Care Time: Yes Critical care time (excluding procedures): 30-74 minutes, Discussing w/Patient &/or Family/Line Service Technician, Discussing w/Consultants, Arranging Admission or Transfer, Performing Direct Patient Care at Bedside and - (40 minutes) Discharge Plan Disposition Disposition: Acute Care Hospital [facility] Discharge Date/Time: 07/24/22 19:30
--- NOTE | 2022-07-24 17:28 | RAD_ITS ---
STUDY: X-RAY - LEFT SHOULDER REASON FOR EXAM: Male, 21 years old. pain TECHNIQUE: 2 view(s) of the shoulder. COMPARISON: None. FINDINGS: Normal glenohumeral articulation. Normal acromioclavicular joint. Normal acromion. There are 2 foci of increased bony sclerosis of humeral head likely bone islands. The soft tissue structures are unremarkable. Normal visualized pulmonary apex. RAD/Shoulder min 2 Views IMPRESSION: No acute fracture or other significant bony pathology. Electronically Signed: Jef Rogers MD at 18:26 EDT ,
--- NOTE | 2022-07-24 17:29 | RAD_ITS ---
STUDY: X-RAY CHEST REASON FOR EXAM: Male, 21 years old. [place] TECHNIQUE: PA and lateral COMPARISON: None. FINDINGS: The lungs are clear and expanded. There is no demonstrated pleural abnormality. Normal size heart. Normal mediastinum and rudi. Normal visualized pulmonary arteries. Normal visualized aortic arch and descending thoracic aorta. Normal visualized thoracic spine. Normal visualized ribs, clavicles, and shoulders. There is no demonstrated abnormality of the visualized soft tissue structures of the upper abdomen. RAD/Chest PA and Lateral IMPRESSION: Normal x-ray examination of the chest. Electronically Signed: Jef Rogers MD at 18:24 EDT ,
[2022-07-24 17:45] LABS: Bedside Glucose 498 mg/dL (74-106)
[2022-07-24] MEDS: 0.9% Normal Saline 1,000 ML 999 ML IV ×2 (17:46→18:45)
[2022-07-24 17:49] LABS: Absolute Lymphocyte Count 0.63 X10^3/uL (0.83-4.51); Absolute Neutrophil Count 5.3 X10^3/uL (2.0-7.7); Basophil# 0.02 X10^3/uL; Basophil% 0.3 % (0-1); Eosinophil# 0.22 X10^3/uL; Eosinophils% 3.2 % (0-5); Hematocrit 37.1 % (40-54); Hemoglobin 12.5 g/dL (13.0-16.5); Lymphocyte # 0.63 X10^3/ul (0.83-4.51); Lymphocyte % 9.3 % (19-41); Mean Corp Hgb Conc 33.7 g/dL (32-36); Mean Corpuscular Hgb 30.6 pg (27.0-32.0); Mean Corpuscular Volume 90.9 fL (80-94); Mean Platelet Vol. 9.2 fl (6.2-12.0); Monocyte# 0.53 X10^3/uL; Monocyte% 7.8 % (0-10); NRBC Flagged by Analyzer 0 % (0-5); Neutrophil # 5.31 X10^3/uL (2.7-7.7); Neutrophil % 78.2 % (47-70); Platelet Count 277 K/mm3 (150-450); RBC Distribution Width CV 13.8 % (11.6-14.6); RBC Distribution Width SD 45.8 fl (35.1-43.9); Red Blood Count 4.08 M/mm3 (4.6-6.2); White Blood Count 6.8 K/mm3 (4.4-11.0)
[2022-07-24 17:59] LABS: Mucous, Urine 0 SEEN /hpf (<or=2+); Red Blood Cells-Urine 0 SEEN /hpf (0-5); Squamous Epithelial Cells - UA 0 SEEN /hpf (0-5)
--- NOTE | 2022-07-24 18:00 | RAD_ITS ---
STUDY: X-RAY - LEFT FOOT CLINICAL: Male, 21 years old. infection toes TECHNIQUE: 3 view(s) of the foot. COMPARISON: None. FINDINGS: Normal talus, calcaneus, and tarsal bones. Normal visualized subtalar, talonavicular, calcaneocuboid, tarsal and tarsometatarsal articulations. Normal metatarsi. Normal metatarsophalangeal joint of the great toe. Normal tibial and fibular sesamoid bones. Normal interphalangeal joint of the great toe. Normal phalanges of the great toe. Normal second through fifth metatarsophalangeal joints. Normal interphalangeal joints and phalanges of the lesser toes. The soft tissue structures are unremarkable. RAD/Foot min 3 Views IMPRESSION: Normal x-ray examination of the foot. If strong clinical suspicion for acute osteomyelitis, three-phase bone scan or MRI recommended for further evaluation Electronically Signed: Jef Rogers MD at 18:25 EDT ,
[2022-07-24 18:06] LABS: Partial Thromboplast Time 31.1 Seconds (24.1-36.2)
[2022-07-24 18:10] LABS: Erythrocyte Sedimentation Rate 59 mm/hr (0-20)
[2022-07-24 18:13] LABS: Lactic Acid 1.1 mmol/L (0.4-1.9)
[2022-07-24 18:14] LABS: International Normalized Ratio 1.1; Prothrombin Time (Protime)PT. 14.2 SECONDS (11.7-14.9)
[2022-07-24 18:20] LABS: ALB/GLOB Ratio 0.6 RATIO (0.9-2.4); AST(SGOT) 7 U/L (15-37); Alanine Aminotransfer ALT/SGPT 18 U/L (16-61); Albumin, Serum 2.7 g/dL (3.2-5.0); Alkaline Phosphatase 119 U/L (45-117); Anion Gap 24 (5-15); BUN 14 mg/dL (7-18); BUN/Creat Ratio 12.4 RATIO (10-20); CPK Total, Creatine Kinase 35 U/L (39-308); Calcium,Total 9.1 mg/dL (8.5-10.1); Chloride 107 mmol/L (98-107); Creatinine, Serum 1.13 mg/dL (0.70-1.30); EST Glomerular Filtration Rate 87 mL/min (>60); Est Glom Filt Rate - Afr Amer 105 mL/min (>60); Estimated Creatinine Clearance 106.19 ml/min; Globulin 4.5 g/dL (2.2-4.2); Glucose 499 mg/dL (74-106); Potassium 3.5 mmol/L (3.5-5.1); Protein, Total 7.2 g/dL (6.4-8.2); Sodium Level 138 mmol/L (136-145)
[2022-07-24 18:29] LABS: Color, Urine Yellow (Yellow); Glucose, Dipstick 1000 mg/dl (Normal); Leukocyte Esterase-Dipstick Negative /ul (Negative); Nitrite-Dipstick Negative (Negative); Occult Blood-Urine 25 /ul (Negative); Protein-Dipstick 30 mg/dl (Negative); Specific Gravity, Urine 1.015 (1.002-1.030); Urine Bilirubin Dipstick Negative (Negative); Urine Clarity Clear (Clear); Urine Urobilinogen Normal (Normal)
[2022-07-24 18:31] LABS: Ketone-Dipstick 150 mg/dl (Negative)
[2022-07-24 18:33] LABS: Bacteria RARE /hpf (None Seen); White Blood Cells 0-5 SEEN /hpf (0-5)
--- NOTE | 2022-07-24 18:43 | CPS ---
Dr. Be informed me to not worried about blood gas due to pt.'s known state of being in DKA and his extensive hx. of not taking his medication routinely.
[2022-07-24 19:06] LABS: Bedside Glucose 447 mg/dL (74-106)
[2022-07-24 20:25] LABS: Bedside Glucose 361 mg/dL (74-106)
--- NOTE | 2022-07-24 20:34 | HP.PCM.HOS_ITS ---
HPI - General General Date of Admission: 07/24/22 Date of Service: 07/24/22 Chief Complaint: hyperglycemia, lethargy HPI Narrative SHIRA STEPHENSON, is a 21 M who presents to the emergency room at [facility] after being brought in by squad due to lethargy and hyperglycemia. Patient is a noncompliant type I diabetic and has been in the hospital multiple times for DKA and electrolyte abnormalities. Patient had diarrhea at home, information cannot be obtained from patient due to his lethargy. I talked with his mother who was here at the time of my examination. Labs obtained in the emergency room showed the patient's blood sugar to be elevated at 499, patient's bicarb was low at 7, anion gap was elevated at 24, patient's CBC was remarkable for hemoglobin of 12.5, and serum acetone level was moderate. Patient stated to this examiner that he could not remember the last time he took insulin, his mother stated that he has had some problems with the second and third toes of his left foot, she was vague on how long this had been a problem with the patient. Patient's mother could not tell me the last time the patient took his insulin. Patient will be admitted to ICU for DKA, the tips of his second and third toes of his left foot were also reddened and swollen, I will have podiatry see the patient in consultation, I talked with the emergency room physician and Zosyn was administered to the patient for possible cellulitis of the second and third toes of the left foot. [facility] Medical History (Updated 07/24/22 @ 20:[address] 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 Ulcer of leg, chronic Wound of left lower extremity Home Medications blood sugar diagnostic (OneTouch Verio test strips) #200 ea 09/08/21 [Rx Last Taken Unknown] pen needle, diabetic 32 gauge x 5/32 (BD Ultra-Fine Lorin Pen Needle) #360 ea 09/08/21 [Rx Last Taken Unknown] flash glucose sensor (FreeStyle Niru 14 Day Sensor kit) #2 ea 10/11/21 [Rx Last Taken Unknown] insulin glargine-yfgn 100 unit/mL (3 mL) subcutaneous pen 45 unit subcut QHS DM 07/24/22 [History Last Taken Unknown] insulin lispro 100 unit/mL subcutaneous pen (Humalog KwikPen (U-100) Insulin) 25 unit subcut TIDAC DM 07/24/22 [History Last Taken Unknown] insulin lispro 100 unit/mL subcutaneous pen (Humalog KwikPen (U-100) Insulin) Se e Protocol subcut ACHS DM 07/24/22 [History Last Taken Unknown] potassium chloride 20 mEq tablet,extended release(part/cryst) (Klor-Con M) 40 meq PO BID supplement 07/24/22 [History Last Taken Unknown] Allergy/AdvReac Type Severity Reaction Status Date / Time Milk Containing Products AdvReac Diarrhea Verified 07/24/22 17:13 Family History Father Polysubstance overdose Patient father young secondary to OD. Mother Iron deficiency anemia Other Asthma CVA (cerebral vascular accident) Diabetes Hypertension Thyroid disorder Surgical History H/O right knee surgery History of surgery on extremity Hx of knee surgery Social History housing: other details: Lives with his grandmother, aunt and mother. Smoking Status: Never smoker alcohol intake: current alcohol intake frequency: a few times a month substance use type: does not use ROS ROS Narrative Adequate review of systems was unobtainable due to the patient's lethargy and altered mental status Review of Systems ROS Unobtainable: due to encephalopathy Vital Signs Vital Signs Vital Signs: 07/24/22 17:06 07/24/22 17:10 07/24/22 17:26 Temperature 96.9 F L 96.9 F L Temperature Source Temporal Temporal Pulse Rate 115 H 115 H 113 H Respiratory Rate 18 16 18 Respiratory Effort Respiratory Pattern Blood Pressure 104/67 104/67 102/68 Blood Pressure Mean 79 79 79 Pulse Ox 98 98 99 Oxygen Delivery Method Room Air Room Air Room Air 07/24/22 17:26 07/24/22 17:47 07/24/22 17:48 Temperature 98.7 F Temperature Source Oral Pulse Rate Respiratory Rate Respiratory Effort Normal Respiratory Pattern Normal Blood Pressure Blood Pressure Mean Pulse Ox Oxygen Delivery Method Room Air 07/24/22 18:10 07/24/22 18:40 07/24/22 18:40 Temperature 98.1 F 98.1 F Temperature Source Oral Oral Pulse Rate 106 H 103 H Respiratory Rate 19 H 21 H Respiratory Effort Respiratory Pattern Blood Pressure 110/84 H 98/77 Blood Pressure Mean 92 84 Pulse Ox 100 100 Oxygen Delivery Method Room Air 07/24/22 19:02 07/24/22 19:43 Temperature 98.2 F Temperature Source Oral Pulse Rate 106 H 102 H Respiratory Rate 20 H Respiratory Effort Respiratory Pattern Blood Pressure 100/78 Blood Pressure Mean 85 Pulse Ox 100 Oxygen Delivery Method Room Air Weight Weight: 69.3 kg Body Mass Index (BMI) 20.1 Physical Exam Narrative Patient appeared cachectic, he was lethargic and answer some questions appropriately but most questions were not answered appropriately. Const Orientation / Consciousness: confused HEENT normocephalic and head/scalp atraumatic Eyes PERRL and EOMs intact bilaterally Neck supple, no JVD and no carotid bruits Resp normal respiratory effort, no retractions and no use of accessory muscles Cardio regular rate, regular rhythm, S1 normal heart sound, S2 normal heart sound, no murmurs, no rub and no gallops GI normal to inspection, nondistended, normoactive bowel sounds, soft to palpation, non-tender and non-distended Extremity Extremity Narrative: The tips of the patient's left second and third toes were reddened and appeared to be missing some skin and subcutaneous material. This examiner could not express any discharge from the area Skin Skin Narrative: Patient has redness and swelling of the ends of the second and third left toes, patient also has extreme excoriation of the groin intertriginous areas in keeping with mycotic skin infection. Neuro CN's II-XII intact bilaterally and moves all extremities Neuro Narrative: Patient is lethargic, he is only able to answer occasional questions appropriately Psych Psych Narrative: Patient is lethargic Results Lab / Micro Data Result Diagrams: 07/24/22 17:30 07/24/22 17:30 Labs: Laboratory Results - last 24 hr 07/24/22 17:26: POC Glucose 498 H* 07/24/22 17:30: WBC 6.8, RBC 4.08 L, Hgb 12.5 L, Hct 37.1 L, MCV 90.9, MCH 30.6, MCHC 33.7, RDW Std Deviation 45.8 H, RDW Coeff of Rabia 13.8, Plt Count 277, MPV 9.2, Immature Gran % (Auto) 1.200 H, Neut % (Auto) 78.2 H, Lymph % (Auto) 9.3 L, [place] % (Auto) 7.8, Eos % (Auto) 3.2, Baso % (Auto) 0.3, Absolute Neuts (auto) 5.3, Absolute Lymphs (auto) 0.63 L, Nucleated RBC % 0, ESR 59 H 07/24/22 17:30: PT 14.2, INR 1.1, APTT 31.1 07/24/22 17:30: Sodium 138, Potassium 3.5, Chloride 107, Carbon Dioxide 7.0 L*, Anion Gap 24 H, BUN 14, Creatinine 1.13, Estim Creat Clear Calc 106.19, Est GFR (MDRD) Af Amer 105, Est GFR (MDRD) Non-Af 87, BUN/Creatinine Ratio 12.4, Glucose 499 H*, Calcium 9.1, Total Bilirubin 0.90, AST 7 L, ALT 18, Alkaline Phosphatase 119 H, Total Creatine Kinase 35 L, C-React Prot Ext Range 91.20 H, Total Protein 7.2, Albumin 2.7 L, Globulin 4.5 H, Albumin/Globulin Ratio 0.6 L 07/24/22 17:30: Lactic Acid 1.1 07/24/22 17:30: Acetone Level MODERATE H 07/24/22 17:50: Urine Color Yellow, Urine Clarity Clear, Urine pH 6.0, Ur Specific [place] 1.015, Urine Protein 30 H, Urine Glucose (UA) 1000 H, Urine Ketones 150 A*, Urine Occult Blood 25 H, Urine Nitrite Negative, Urine Bilirubin Negative, Urine Urobilinogen Normal, Ur Leukocyte Esterase Negative, Urine RBC 0 SEEN, Urine WBC 0-5 SEEN, Ur Squamous Epith Cells 0 SEEN, Urine Bacteria RARE, Urine Mucus 0 SEEN 07/24/22 18:43: POC Glucose 447 H 07/24/22 20:02: POC Glucose 361 H Micro: Microbiology 07/24/22 17:50 Nasal Secretion SARS-CoV-2 Antigen (Rapid) - Final Radiology Impression Shoulder X-Ray 07/24/22 17:28 IMPRESSION: No acute fracture or other significant bony pathology. Electronically Signed: Jef Rogers MD at 18:26 EDT , Chest X-Ray 07/24/22 17:29 IMPRESSION: Normal x-ray examination of the chest. Electronically Signed: Jef Rogers MD at 18:24 EDT , Foot X-Ray 07/24/22 18:00 IMPRESSION: Normal x-ray examination of the foot. If strong clinical suspicion for acute osteomyelitis, three-phase bone scan or MRI recommended for further evaluation Electronically Signed: Jef Rogers MD at 18:25 EDT , Assessment & Plan Assessment/Plan (1) Diabetic ketoacidosis associated with type 1 diabetes mellitus: PLAN: Plan 1. Acute recurrent DKA secondary to noncompliance with outpatient type 1 diabetes treatment-patient will be admitted to ICU, he will be placed on insulin drip and given IV fluids, labs will be monitored, additional electrolytes will be obtained tonight (magnesium and phosphorus). [place] remains poor for this patient due to multiple admissions for DKA and noncompliance with outpatient regimen. #2 cellulitis of the left second and third toes-patient will remain on IV Zosyn, he will be seen by podiatry, x-rays of the left foot does not show any evidence of obvious osteomyelitis #3 severe protein and caloric malnutrition-patient will be seen by nutritional services #4 [id number] is unclear why the patient does not follow outpatient guidance for care of his type 1 diabetes, patient probably has an underlying psychological issue, this makes care, management, recovery, and prognosis difficult #5 uncontrolled type 1 diabetes-chronic in nature, due to noncompliance from patient, again this makes management, care, recovery, and prognosis guarded #6 mycotic skin infection of the groin area-patient will be placed on IV Diflucan Charges/Coding Visit Charges Inpatient E&M: 21080 Init Hosp L3
[2022-07-24] MEDS: 0.9% Normal Saline 1,000 ML 250 ML IV (20:42)
[2022-07-24] MEDS: 0.9% Saline Lock 10 ML Syringe IV (21:08)
[2022-07-24 21:20] LABS: Bedside Glucose 331 mg/dL (74-106)
[2022-07-24 22:26] LABS: Bedside Glucose 288 mg/dL (74-106)
[2022-07-24 23:30] LABS: Magnesium 1.7 mg/dL (1.6-2.6)
[2022-07-24 23:31] LABS: Bedside Glucose 253 mg/dL (74-106)
[2022-07-24 23:37] LABS: Phosphorus 1.9 mg/dL (2.5-4.9)
[2022-07-25] VITALS (29 sets, daily range): BP systolic 74–104; BP diastolic 46–80; PULSE 112–142; RESP 16–25; TEMP 35.9–37.4; O2SAT 97–100
[2022-07-25 00:07] LABS: Anion Gap 13 (5-15); BUN 11 mg/dL (7-18); BUN/Creat Ratio 12.2 RATIO (10-20); Calcium,Total 8.2 mg/dL (8.5-10.1); Chloride 116 mmol/L (98-107); EST Glomerular Filtration Rate 113 mL/min (>60); Est Glom Filt Rate - Afr Amer 136 mL/min (>60); Estimated Creatinine Clearance 127.26 ml/min; Glucose 265 mg/dL (74-106); Potassium 2.8 mmol/L (3.5-5.1); Sodium Level 143 mmol/L (136-145)
[2022-07-25] MEDS: Dext 5%-0.45% NS 1,000 ML 150 ML IV ×3 (00:08→12:23)
[2022-07-25 00:30] LABS: Bedside Glucose 200 mg/dL (74-106)
[2022-07-25] MEDS: Potassium Chloride 10mEq/100mL 10 MEQ/100 ML IV.SOLN. 100 MEQ IV BOLUS ×8 (01:06→11:32)
[2022-07-25 01:25] LABS: Bedside Glucose 231 mg/dL (74-106)
[2022-07-25 02:25] LABS: Bedside Glucose 212 mg/dL (74-106)
[2022-07-25 03:30] LABS: Bedside Glucose 213 mg/dL (74-106)
[2022-07-25 04:12] LABS: Anion Gap 11 (5-15); BUN 10 mg/dL (7-18); Calcium,Total 7.8 mg/dL (8.5-10.1); Chloride 115 mmol/L (98-107); Creatinine, Serum 0.83 mg/dL (0.70-1.30); EST Glomerular Filtration Rate 123 mL/min (>60); Est Glom Filt Rate - Afr Amer 149 mL/min (>60); Estimated Creatinine Clearance 139.59 ml/min; Glucose 202 mg/dL (74-106); Potassium 4.3 mmol/L (3.5-5.1); Sodium Level 141 mmol/L (136-145)
[2022-07-25 04:31] LABS: Bedside Glucose 195 mg/dL (74-106)
[2022-07-25 05:26] LABS: Bedside Glucose 189 mg/dL (74-106)
[2022-07-25 06:30] LABS: Bedside Glucose 167 mg/dL (74-106)
[2022-07-25] MEDS: 0.9% Normal Saline 1,000 ML 999 ML IV ×2 (06:40→23:14)
[2022-07-25 07:20] LABS: Bedside Glucose 155 mg/dL (74-106)
[2022-07-25 07:27] LABS: Anion Gap 10 (5-15); BUN 9 mg/dL (7-18); BUN/Creat Ratio 12.5 RATIO (10-20); Calcium,Total 7.8 mg/dL (8.5-10.1); Chloride 116 mmol/L (98-107); Creatinine, Serum 0.72 mg/dL (0.70-1.30); EST Glomerular Filtration Rate 146 mL/min (>60); Est Glom Filt Rate - Afr Amer 177 mL/min (>60); Estimated Creatinine Clearance 160.92 ml/min; Glucose 158 mg/dL (74-106); Potassium 3.1 mmol/L (3.5-5.1); Sodium Level 141 mmol/L (136-145)
[2022-07-25 08:35] LABS: Bedside Glucose 141 mg/dL (74-106)
[2022-07-25 09:25] LABS: Bedside Glucose 140 mg/dL (74-106)
[2022-07-25] MEDS: CHLORHEXIDINE GLUC 2% CLOTH 1 EACH TOWELETTE TOPICAL (10:40)
[2022-07-25 10:55] LABS: Bedside Glucose 152 mg/dL (74-106)
--- NOTE | 2022-07-25 10:55 | CON.PCM_ITS ---
Assessment & Plan Assessment/Plan (1) Diabetic ketoacidosis associated with type 1 diabetes mellitus: (2) Non-pressure chronic ulcer of other part of left foot with fat layer exposed: PLAN: Plan Patient seen and evaluated A sunitha discussion was had with the patient today in concerns to his wounds to his second and third digit of the left foot. I discussed with him the need to continue to take his insulin regularly and to care for himself in terms of hygiene and diabetic foot checks. I discussed with him that continuing his current course of self-care and noncompliance regarding his type 1 diabetes with multiple recurrences of DKA will lead to worsening health conditions, possible amputation of various level, and ultimately loss of life. During our discussion patient demonstrated very flat affect and seems to be unreceptive to the gravity of his situation. Infection: Distal aspect of the second and third digits demonstrates a loosened eschar covering with slight expressible purulence from under the covering. Upon verbal consent I performed a sharp excisional debridement at bedside to the level of the subcutaneous tissues in which 100% of the wound site at the second and third digit were debrided removing eschar covering, fibrous, devitalized subcutaneous, biofilm, slough. Bleeding was adequately controlled with gauze and pressure. Patient tolerated the procedure well. Upon removal of the eschar cap of the second and third digits no further expressible purulence was noted. No malodor was noted. There is no erythema surrounding the ulceration at the distal aspect of digits 2 or 3. Underlying wound was red, beefy, granular tissue and healthy in appearance. Ulcerative sites do not probe to bone. WBC currently within normal limits. Patient does have some redness of both lower extremities with purplish discoloration to the dorsum foot and lower extremity. Currently on IV Zosyn. I also started the patient on oral Keflex 500 mg twice daily for 10 days. Ulcerative sites were dressed as stated below. Cultures: Blood cultures obtained in ED, awaiting results. Wound culture obtained in ED demonstrates +1 gram-positive cocci and +1 gram-positive jo ann. Radiographs: Radiographic images obtained 07/24/2022 were reviewed and demonstrate no signs of osteomyelitis or discernible abscess. Dressing: Second and third digits were painted with Betadine and dressed with Adaptic and dry sterile dressing. Nursing to continue daily dressing changes to the site. Wound care nurse was consulted for continued dressing changes. Wash: He may wash with soap and water. Discussed routine hygiene and self-care Offload: He is to continue to offload the distal aspect of the second and third toes with dressing and shoes that adequately fit Vascular: Palpable DP and PT pulses with adequate capillary refill time to the digits Host factors: DM type I, noncompliant with recurrences of DKA Medicine team is following for management of blood sugars and resolution of his DKA. This is greatly appreciated. At this time I do not currently anticipate any podiatric surgical intervention for his second and third digits. Podiatry will continue to follow while in house. It is recommended that he continue to follow with podiatry for local wound care once stable and discharged. Please do not hesitate to contact with any questions or concerns Jr. Adore Healy.P.M[facility] [phone] Note: [employer] speech recognition inspector brake lining software was used to create portions of this document. Sound-alike and misspelled words, as well as other inspector brake lining errors may be contained in the documentation. HPI Consult Data Date of Consult: 07/25/22 HPI Narrative Reason for Consultation: Eschar to the second and third digits of the left foot HPI Narrative: SHIRA STEPHENSON, is a 21 M who presents by way of EMS service to [facility] ED for DKA. At time of arrival patient's sugars were reported at 499 mg/dL and he presented with lethargy, cellulitis of both lower extremities, and eschar cap to the distal second and third digit of the left foot. Patient is unaware of how long he has had the eschar covering on his toes. He denies following any physician for his toes or the redness in his legs. He cannot remember his last insulin dose. Upon further history evaluation it is apparent that he is a noncompliant type I diabetic with history of multiple admissions secondary to DKA and electrolyte abnormalities. He was admitted to [facility] and placed on IV fluids and insulin drip. He was also started on IV Zosyn. Podiatry was consulted for evaluation of his second and third digits of the left foot and was seen bedside today resting. He appears very lethargic with flat affect. He denies pain in his toes today. He is unsure of why he does not take his insulin regularly. [facility] Medical History (Updated 07/25/22 @ 11:[address] Mauri Alas, [place]) Asthma Diabetes Diabetes mellitus type 1 Diabetic ketoacidosis associated with type 1 diabetes mellitus femur surgery GERD (gastroesophageal reflux disease) Hypokalemia Kidney disease Lower extremity edema Nausea and vomiting Non-smoker Noncompliance Noncompliance Nonhealing surgical wound Psychosocial problem Sinus tachycardia seen on bus driver/monitor Ulcer of leg, chronic Wound of left lower extremity Home Medications blood sugar diagnostic (OneTouch Verio test strips) #200 ea 09/08/21 [Rx Last Taken Unknown] pen needle, diabetic 32 gauge x 5/32 (BD Ultra-Fine Lorin Pen Needle) #360 ea 09/08/21 [Rx Last Taken Unknown] flash glucose sensor (FreeStyle Niru 14 Day Sensor kit) #2 ea 10/11/21 [Rx Last Taken Unknown] insulin glargine-yfgn 100 unit/mL (3 mL) subcutaneous pen 45 unit subcut QHS DM 07/24/22 [History Last Taken Unknown] insulin lispro 100 unit/mL subcutaneous pen (Humalog KwikPen (U-100) Insulin) 25 unit subcut TIDAC DM 07/24/22 [History Last Taken Unknown] insulin lispro 100 unit/mL subcutaneous pen (Humalog KwikPen (U-100) Insulin) See Protocol subcut ACHS DM 07/24/22 [History Last Taken Unknown] potassium chloride 20 mEq tablet,extended release(part/cryst) (Klor-Con M) 40 meq PO BID supplement 07/24/22 [History Last Taken Unknown] Allergy/AdvReac Type Severity Reaction Status Date / Time Milk Containing Products AdvReac Diarrhea Verified 07/24/22 17:13 Family History Father Polysubstance overdose Patient father young secondary to OD. Mother Iron deficiency anemia Other Asthma CVA (cerebral vascular accident) Diabetes Hypertension Thyroid disorder Surgical History H/O right knee surgery History of surgery on extremity Hx of knee surgery Social History housing: other details: Lives with his grandmother, aunt and mother. Smoking Status: Never smoker alcohol intake: current alcohol intake frequency: a few times a month substance use type: does not use ROS Constitutional Constitutional: Reports lethargy and weakness; Denies body ache(s) or fever(s) Eyes Eyes: Denies blurry vision, change in vision or diplopia ENT HEENT: Denies nasal congestion, nasal discharge or sore throat Cardiovascular Cardiovascular: Denies chest pain, claudication or dyspnea at rest Respiratory/Chest Respiratory/Chest: Denies chest congestion, cough or dyspnea Gastrointestinal Gastrointestinal: Denies constipation, nausea or vomiting Genitourinary Genitourinary: Denies urinary frequency, urinary hesitancy, urinary incontinence or urinary urgency Musculoskeletal Musculoskeletal: Denies joint pain, joint stiffness or joint swelling Integumentary Integumentary: Denies jaundice, pruritus or rash Neurologic Neurologic: Denies dizziness, numbness or seizures Psychiatric Psychiatric: Denies confusion Endocrine Endocrinology: Denies polydipsia, polyphagia or polyuria Hematologic/Lymphatic Hematologic/Lymphatic: Denies easy bleeding, easy bruising or lymphadenopathy Physical Exam Const alert and oriented x3 General Appearance: cooperative HEENT normocephalic Eyes General Eye: normal appearance of both eyes Neck General: normal visual inspection Lymph Lymphatic: no lymphadenopathy noted and no lymphedema noted Resp normal respiratory effort Cardio regular rate and regular rhythm Extremity normal capillary refill, no joint enlargement, no calf tenderness and no pedal edema Peripheral Pulses: Yes posterior tibial pulses present bilateral and dorsalis pedis pulses present bilateral Skin no rashes or lesions noted, skin turgor normal and no jaundice Skin Narrative: Erythema bilateral lower extremities at the dorsum of the foot extending proximally up the lower extremity. In the regions of the erythema there is also purplish discoloration noted. Legs are not painful to palpation. Wound Narrative: Distal tuft of second and third digit of the left foot demonstrates loosened, dry eschar covering. Upon expression from under the eschar cap there is slight white purulent drainage and hemorrhagic discharge. There is no malodor noted. Neuro oriented x3 and moves all extremities Medical Records Data Medical Nutrition Assessment Dietitian: Malnutrition Criteria Met Start: 07/25/22 09:51 Freq: Status: Active Protocol: Document 07/25/22 09:51 (Rec: 07/25/22 09:51 [id number]) Nutrition Malnutrition Evidence of Malnutrition Exists Yes Malnutrition (moderate): Chronic Evidenced By Suboptimal Energy Intake ( Moderate),Physical Changes ( Moderate) Clinical Problem Chronic Disease or Condition Related Malnutrition Etiology chronic, moderate malnutrition related to inadequate energy intake w/ poorly controlled DM1 Signs/Symptoms as evidenced by moderate muscle wasting/fat loss evident per physical exam in orbital, clavicle, acromion, temporal areas; estimated PO intake meeting <75% of estimated energy needs >3 months Status Active Problem Recommendation Dietitian Recommendations/Changes advance diet as tolerated to 2200 calorie controlled/ consistent CHO; glucerna 120mL 4x/day w/ medpass when diet advanced. Lab / Micro Data Result Diagrams: 07/24/22 17:30 07/25/22 07:00 Labs: Laboratory Results - last 24 hr 07/24/22 17:26: POC Glucose 498 H* 07/24/22 17:30: WBC 6.8, RBC 4.08 L, Hgb 12.5 L, Hct 37.1 L, MCV 90.9, MCH 30.6, MCHC 33.7, RDW Std Deviation 45.8 H, RDW Coeff of Rabia 13.8, Plt Count 277, MPV 9.2, Immature Gran % (Auto) 1.200 H, Neut % (Auto) 78.2 H, Lymph % (Auto) 9.3 L, [place] % (Auto) 7.8, Eos % (Auto) 3.2, Baso % (Auto) 0.3, Absolute Neuts (auto) 5.3, Absolute Lymphs (auto) 0.63 L, Nucleated RBC % 0, ESR 59 H 07/24/22 17:30: PT 14.2, INR 1.1, APTT 31.1 07/24/22 17:30: Sodium 138, Potassium 3.5, Chloride 107, Carbon Dioxide 7.0 L*, Anion Gap 24 H, BUN 14, Creatinine 1.13, Estim Creat Clear Calc 106.19, Est GFR (MDRD) Af Amer 105, Est GFR (MDRD) Non-Af 87, BUN/Creatinine Ratio 12.4, Glucose 499 H*, Calcium 9.1, Total Bilirubin 0.90, AST 7 L, ALT 18, Alkaline Phosphatase 119 H, Total Creatine Kinase 35 L, C-React Prot Ext Range 91.20 H, Total Protein 7.2, Albumin 2.7 L, Globulin 4.5 H, Albumin/Globulin Ratio 0.6 L 07/24/22 17:30: Lactic Acid 1.1 07/24/22 17:30: Acetone Level MODERATE H 07/24/22 17:50: Urine Color Yellow, Urine Clarity Clear, Urine pH 6.0, Ur Specific [place] 1.015, Urine Protein 30 H, Urine Glucose (UA) 1000 H, Urine Ketones 150 A*, Urine Occult Blood 25 H, Urine Nitrite Negative, Urine Bilirubin Negative, Urine Urobilinogen Normal, Ur Leukocyte Esterase Negative, Urine RBC 0 SEEN, Urine WBC 0-5 SEEN, Ur Squamous Epith Cells 0 SEEN, Urine Bacteria RARE, Urine Mucus 0 SEEN 07/24/22 18:43: POC Glucose 447 H 07/24/22 20:02: POC Glucose 361 H 07/24/22 21:01: POC Glucose 331 H 07/24/22 22:01: POC Glucose 288 H 07/24/22 23:02: POC Glucose 253 H 07/24/22 23:04: Sodium 143, Potassium 2.8 L, Chloride 116 H, Carbon Dioxide 14.0 L, Anion Gap 13, BUN 11, Creatinine 0.90, Estim Creat Clear Calc 127.26, Est GFR (MDRD) Af Amer 136, Est GFR (MDRD) Non-Af 113, BUN/Creatinine Ratio 12.2, Glucose 265 H, Calcium 8.2 L 07/24/22 23:04: Magnesium 1.7 07/24/22 23:04: Phosphorus 1.9 L 07/25/22 00:02: POC Glucose 200 H 07/25/22 01:03: POC Glucose 231 H 07/25/22 02:00: POC Glucose 212 H 07/25/22 03:04: POC Glucose 213 H 07/25/22 03:18: Sodium 141, Potassium 4.3, Chloride 115 H, Carbon Dioxide 15.0 L , Anion Gap 11, BUN 10, Creatinine 0.83, Estim Creat Clear Calc 139.59, Est GFR (MDRD) Af Amer 149, Est GFR (MDRD) Non-Af 123, BUN/Creatinine Ratio 12.0, Glucose 202 H, Calcium 7.8 L 07/25/22 04:05: POC Glucose 195 H 07/25/22 04:59: POC Glucose 189 H 07/25/22 06:02: POC Glucose 167 H 07/25/22 07:00: Sodium 141, Potassium 3.1 L, Chloride 116 H, Carbon Dioxide 15.0 L, Anion Gap 10, BUN 9, Creatinine 0.72, Estim Creat Clear Calc 160.92, Est GFR (MDRD) Af Amer 177, Est GFR (MDRD) Non-Af 146, BUN/Creatinine Ratio 12.5, Glucose 158 H, Calcium 7.8 L 07/25/22 07:00: POC Glucose 155 H 07/25/22 08:03: POC Glucose 141 H 07/25/22 09:07: POC Glucose 140 H Micro: Microbiology 07/24/22 17:50 Wound - Left Foot Gram Stain - Final 07/24/22 17:50 Nasal Secretion SARS-CoV-2 Antigen (Rapid) - Final Radiology Impression Shoulder X-Ray 07/24/22 17:28 IMPRESSION: No acute fracture or other significant bony pathology. Electronically Signed: Jef Rogers MD at 18:26 EDT , Chest X-Ray 07/24/22 17:29 IMPRESSION: Normal x-ray examination of the chest. Electronically Signed: Jef Rogers MD at 18:24 EDT , Foot X-Ray 07/24/22 18:00 IMPRESSION: Normal x-ray examination of the foot. If strong clinical suspicion for acute osteomyelitis, three-phase bone scan or MRI recommended for further evaluation Electronically Signed: Jef Rogers MD at 18:25 EDT ,
--- NOTE | 2022-07-25 11:17 | PN.HOSP_ITS ---
Subjective Subjective Denies suicidality. States that he forgot to take his insulin. Objective Data Objective Data Vital Signs: Vital Signs Temp Pulse Resp BP Pulse Ox O2 Del Method 37.0 C 136 H 22 H 82/47 L 97 Room Air 07/25/22 08:00 07/25/22 11:00 07/25/22 11:00 07/25/22 11:00 07/25/22 11:00 07/25/22 11:00 Oxygen Delivery Method Room Air Weight: 70.1 kg Body Mass Index (BMI) 20.1 Intake & Output: Intake and Output for Last 24 Hours 07/23/22 07/24/22 07/25/22 23:59 23:59 23:59 Intake Total 2168.54 / 2168.54 4006.27 / 4006.27 Output Total 2325 / 2325 1625 / 1625 Balance -156.46 / -156.46 2381.27 / 2381.27 Medical Nutrition Assessment Dietitian: Malnutrition Criteria Met Start: 07/25/22 09:51 Freq: Status: Active Protocol: Document 07/25/22 09:51 AG (Rec: 07/25/22 09:51 [id number]) Nutrition Malnutrition Evidence of Malnutrition Exists Yes Malnutrition (moderate): Chronic Evidenced By Suboptimal Energy Intake ( Moderate),Physical Changes ( Moderate) Clinical Problem Chronic Disease or Condition Related Malnutrition Etiology chronic, moderate malnutrition related to inadequate energy intake w/ poorly controlled DM1 Signs/Symptoms as evidenced by moderate muscle wasting/fat loss evident per physical exam in orbital, clavicle, acromion, temporal areas; estimated PO intake meeting <75% of estimated energy needs >3 months Status Active Problem Recommendation Dietitian Recommendations/Changes advance diet as tolerated to 2200 calorie controlled/ consistent CHO; glucerna 120mL 4x/day w/ medpass when diet advanced. Lab / Micro Data Result Diagrams: 07/24/22 17:30 07/25/22 07:00 Labs: Laboratory Results - last 24 hr 07/24/22 17:26: POC Glucose 498 H* 07/24/22 17:30: WBC 6.8, RBC 4.08 L, Hgb 12.5 L, Hct 37.1 L, MCV 90.9, MCH 30.6, MCHC 33.7, RDW Std Deviation 45.8 H, RDW Coeff of Rabia 13.8, Plt Count 277, MPV 9.2, Immature Gran % (Auto) 1.200 H, Neut % (Auto) 78.2 H, Lymph % (Auto) 9.3 L, Cannon % (Auto) 7.8, Eos % (Auto) 3.2, Baso % (Auto) 0.3, Absolute Neuts (auto) 5.3, Absolute Lymphs (auto) 0.63 L, Nucleated RBC % 0, ESR 59 H 07/24/22 17:30: PT 14.2, INR 1.1, APTT 31.1 07/24/22 17:30: Sodium 138, Potassium 3.5, Chloride 107, Carbon Dioxide 7.0 L*, Anion Gap 24 H, BUN 14, Creatinine 1.13, Estim Creat Clear Calc 106.19, Est GFR (MDRD) Af Amer 105, Est GFR (MDRD) Non-Af 87, BUN/Creatinine Ratio 12.4, Glucose 499 H*, Calcium 9.1, Total Bilirubin 0.90, AST 7 L, ALT 18, Alkaline Phosphatase 119 H, Total Creatine Kinase 35 L, C-React Prot Ext Range 91.20 H, Total Protein 7.2, Albumin 2.7 L, Globulin 4.5 H, Albumin/Globulin Ratio 0.6 L 07/24/22 17:30: Lactic Acid 1.1 07/24/22 17:30: Acetone Level MODERATE H 07/24/22 17:50: Urine Color Yellow, Urine Clarity Clear, Urine pH 6.0, Ur Specific [place] 1.015, Urine Protein 30 H, Urine Glucose (UA) 1000 H, Urine Ketones 150 A*, Urine Occult Blood 25 H, Urine Nitrite Negative, Urine Bilirubin Negative, Urine Urobilinogen Normal, Ur Leukocyte Esterase Negative, Urine RBC 0 SEEN, Urine WBC 0-5 SEEN, Ur Squamous Epith Cells 0 SEEN, Urine Bacteria RARE, Urine Mucus 0 SEEN 07/24/22 18:43: POC Glucose 447 H 07/24/22 20:02: POC Glucose 361 H 07/24/22 21:01: POC Glucose 331 H 07/24/22 22:01: POC Glucose 288 H 07/24/22 23:02: POC Glucose 253 H 07/24/22 23:04: Sodium 143, Potassium 2.8 L, Chloride 116 H, Carbon Dioxide 14.0 L, Anion Gap 13, BUN 11, Creatinine 0.90, Estim Creat Clear Calc 127.26, Est GFR (MDRD) Af Amer 136, Est GFR (MDRD) Non-Af 113, BUN/Creatinine Ratio 12.2, Glucose 265 H, Calcium 8.2 L 07/24/22 23:04: Magnesium 1.7 07/24/22 23:04: Phosphorus 1.9 L 07/25/22 00:02: POC Glucose 200 H 07/25/22 01:03: POC Glucose 231 H 07/25/22 02:00: POC Glucose 212 H 07/25/22 03:04: POC Glucose 213 H 07/25/22 03:18: Sodium 141, Potassium 4.3, Chloride 115 H, Carbon Dioxide 15.0 L , Anion Gap 11, BUN 10, Creatinine 0.83, Estim Creat Clear Calc 139.59, Est GFR (MDRD) Af Amer 149, Est GFR (MDRD) Non-Af 123, BUN/Creatinine Ratio 12.0, Glucose 202 H, Calcium 7.8 L 07/25/22 04:05: POC Glucose 195 H 07/25/22 04:59: POC Glucose 189 H 07/25/22 06:02: POC Glucose 167 H 07/25/22 07:00: Sodium 141, Potassium 3.1 L, Chloride 116 H, Carbon Dioxide 15.0 L, Anion Gap 10, BUN 9, Creatinine 0.72, Estim Creat Clear Calc 160.92, Est GFR (MDRD) Af Amer 177, Est GFR (MDRD) Non-Af 146, BUN/Creatinine Ratio 12.5, Glucose 158 H, Calcium 7.8 L 07/25/22 07:00: POC Glucose 155 H 07/25/22 08:03: POC Glucose 141 H 07/25/22 09:07: POC Glucose 140 H 07/25/22 10:34: POC Glucose 152 H Micro: Microbiology 07/24/22 17:50 Wound - Left Foot Gram Stain - Final 07/24/22 17:50 Wound - Left Foot Wound Culture - Preliminary Mixed Gram Positive Organisms 07/24/22 17:50 Nasal Secretion SARS-CoV-2 Antigen (Rapid) - Final Radiography Diagnostic Testing: Radiology Impression Shoulder X-Ray 07/24/22 17:28 IMPRESSION: No acute fracture or other significant bony pathology. Electronically Signed: Jef Rogers MD at 18:26 EDT , Chest X-Ray 07/24/22 17:29 IMPRESSION: Normal x-ray examination of the chest. Electronically Signed: Jef Rogers MD at 18:24 EDT Reading Location ID and State: [place] / [place] , Service support , Foot X-Ray 07/24/22 18:00 IMPRESSION: Normal x-ray examination of the foot. If strong clinical suspicion for acute osteomyelitis, three-phase bone scan or MRI recommended for further evaluation Electronically Signed: Jef Rogers MD at 18:25 EDT Reading Location ID and State: [place] / [place] , Service support , Physical Exam Const Constitutional Narrative: appears older than stated age. cachectic. Resp normal respiratory effort and no retractions Cardio regular rate, regular rhythm, S1 normal heart sound and S2 normal heart sound GI normal to inspection, nondistended, normoactive bowel sounds, soft to palpation and non-tender Extremity Extremity Narrative: edema in feet. Skin Skin Narrative: erythema of bilateral legs, groin and scrotum Assessment & Plan Assessment/Plan (1) Diabetic ketoacidosis associated with type 1 diabetes mellitus: PLAN: Improved Still in on insulin gtt, gap is closed, but still with low CO2 Complicated by non-compliance. Pt denies being suicidal. Seems more laizze-faire approach to managing his diabetes (2) Non-pressure chronic ulcer of other part of left foot with fat layer exposed: PLAN: on piperacillin/tazobactam and fluconazole no OM on xray Podiatry on consult: conservative mgmt, no surgery at this time. add vancomycin PLAN: Plan hypokalemia: replace depression: clearly pt is derepressed and lacks true desire to care for himself. Addressed with patient. Recommended outpt counseling. VTE prophylaxis: Charges/Coding Visit Charges Inpatient E&M: 44456 Subs Hosp L2
[2022-07-25] MEDS: Cephalexin 500 MG Capsule PO ×2 (11:39→21:00)
[2022-07-25] MEDS: 0.9% Normal Saline 1,000 ML 150 ML IV ×2 (11:39→18:21)
--- NOTE | 2022-07-25 11:45 | CASEMGMT ---
VERONA FONTANEZ Face to Face with patient for initial transition planning/care coordination assessment. VERONA FONTANEZ introduced self and role at [facility]. Patient lying in bed, alert and oriented. Patient willing to participate in assessment and is able to answer all questions appropriately. Care providers, pharmacy, and demographics verified. Patient wishes to discharge home, denies need for home health at this time. Patient states he has no further needs or concerns at this time. CM to follow for discharge planning needs that may arise. PCP: Merrill, called office patient is not established. Patient states grandmother made him an appt Specialists: none Preferred Pharmacy: [facility] Insurance: [employer] Prescription Benefit: yes Living Will/HPOA: none LNOK: mother, grandmother Living Arrangements: Patient lives with grandmother, mother, and several other family members in a 2 story home. Patient states his bed and bath are on first floor. Patient states he is independent at home. Transportation: Grandmother DME/C: Patient states he has glucometer with supplies and insulin with supplies. Patient admits to not checking his blood sugar regularly. VERONA FONTANEZ discussed importance of monitoring blood sugars 4 times daily as prescribed. Also discussed need for blood sugars to be under control for adequate wound healing. Patient voiced understanding. VERONA FONTANEZ suggested setting alarms on phone as reminders to check blood sugars. Patient agreed but not wanting to set alarms at this time. Patient gave permission for this VERONA FONTANEZ to call grandmother regarding follow-up care. VERONA FONTANEZ called grandmother, Ines, to discuss concerns regarding follow-up care and monitoring blood sugars. Ines states she has not scheduled appt yet for patient as she did not know what was going on with patient. VERONA FONTANEZ updated grandmother that Dr. Momin was not accepting new patients but his colleagues were. VERONA FONTANEZ volunteered to make appt for patient at [facility], grandmother agreeable. Per Ines, patient does not test blood sugars like he should. She tries to encourage him but patient is not receptive. Discussed setting alarms on patient's phone, Ines voiced understanding. Ines had no further questions or concerns at this time. Referral made to Patient Link program as patient is a potential candidate. Disposition Plan: Patient to discharge home with family support and follow-up plans in place. Joana MONTEZ, RN, CM
[2022-07-25 11:50] LABS: Bedside Glucose 139 mg/dL (74-106)
[2022-07-25 12:10] LABS: Anion Gap 6 (5-15); BUN 8 mg/dL (7-18); BUN/Creat Ratio 11.4 RATIO (10-20); Calcium,Total 8.4 mg/dL (8.5-10.1); Chloride 115 mmol/L (98-107); EST Glomerular Filtration Rate 151 mL/min (>60); Est Glom Filt Rate - Afr Amer 182 mL/min (>60); Estimated Creatinine Clearance 165.51 ml/min; Glucose 140 mg/dL (74-106); Potassium 3.1 mmol/L (3.5-5.1); Sodium Level 141 mmol/L (136-145)
[2022-07-25] MEDS: Insulin NPH Human 100 UNITS/ML PEN 20 UNITS SC (12:44)
--- NOTE | 2022-07-25 12:48 | PCM.RX.CS ---
Consult Pharmacy has been consulted to manage selected antiobiotic: Vancomycin Type of Consult: New start Suspected Infection: Other - FOOT ULCER Labs: Sodium 141 mmol/L (136-145) 07/25/22 11:25 Potassium 3.1 mmol/L (3.5-5.1) L 07/25/22 11:25 Chloride 115 mmol/L (98-107) H 07/25/22 11:25 Carbon Dioxide 20.0 mmol/L (21.0-32.0) L 07/25/22 11:25 Anion Gap 6 (5-15) 07/25/22 11:25 BUN 8 mg/dL (7-18) 07/25/22 11:25 Creatinine 0.70 mg/dL (0.70-1.30) 07/25/22 11:25 Est GFR (MDRD) Af Amer 182 mL/min (>60) 07/25/22 11:25 Est GFR (MDRD) Non-Af 151 mL/min (>60) 07/25/22 11:25 BUN/Creatinine Ratio 11.4 RATIO (10-20) 07/25/22 11:25 Glucose 140 mg/dL (74-106) H 07/25/22 11:25 Microbiology: Microbiology 07/24/22 17:50 Urine, Catheterized Urine Culture - Preliminary Gram Positive Cocci 07/24/22 17:50 Wound - Left Foot Gram Stain - Final 07/24/22 17:50 Wound - Left Foot Wound Culture - Preliminary Mixed Gram Positive Organisms 07/24/22 17:50 Nasal Secretion SARS-CoV-2 Antigen (Rapid) - Final Pharmacy Plan for Drug Dosing: NEW START IV VANCOMYCIN Consulting Physician: JASMIN Indication: FOOT ULCER Goal Trough: 15-20 MG/DL SrCr: 0.7 MG/DL CrCl: 165 ML/MIN Comments: LOADING DOSE OF 1750MG GIVEN 07/25 @ 1221 Vancomycin Dose: WILL START 1000MG Q8H AND GET A TROUGH PRIOR TO 4TH TOTAL DOSE PER POLICY. Pending Level: 07/26 @ 1200 Pharmacy Service will continue to monitor and adjust dosing as required.
--- NOTE | 2022-07-25 13:49 | CASEMGMT ---
VERONA FONTANEZ called and scheduled appt with [facility]. Appt made with Dr. Henry on 08/01/22 at 0945. VERONA FONTANEZ updated patient's discharge plan to include new appt to get established with PCP.
[2022-07-25 15:51] LABS: Bedside Glucose 253 mg/dL (74-106)
[2022-07-25] MEDS: Insulin Lispro 100 UNIT/ML INSULN.PEN 25 UNIT SC (17:05)
[2022-07-25] MEDS: Acetaminophen 325 MG Tablet 650 MG PO ×2 (17:05→21:06)
[2022-07-25] MEDS: Insulin Lispro 100 UNIT/ML INSULN.PEN SC (17:06)
[2022-07-25 17:30] LABS: Bedside Glucose 278 mg/dL (74-106)
[2022-07-25] MEDS: Vancomycin IV 1,000 MG/200 ML BAG 200 MG IV (20:58)
[2022-07-25] MEDS: Insulin Glargine-YFGN 100 UNIT/ML Pen 45 UNIT SC (21:00)
[2022-07-25 21:31] LABS: Bedside Glucose 197 mg/dL (74-106)
[2022-07-26] VITALS (19 sets, daily range): BP systolic 78–128; BP diastolic 55–115; PULSE 125–143; RESP 15–26; TEMP 36.8–38.3; O2SAT 95–100
[2022-07-26] MEDS: 0.9% Normal Saline 1,000 ML 150 ML IV ×2 (02:30→08:01)
[2022-07-26 03:36] LABS: Bedside Glucose 130 mg/dL (74-106)
[2022-07-26] MEDS: Vancomycin IV 1,000 MG/200 ML BAG 200 MG IV (03:42)
[2022-07-26 04:11] LABS: Absolute Lymphocyte Count 1.44 X10^3/uL (0.83-4.51); Absolute Neutrophil Count 3.2 X10^3/uL (2.0-7.7); Basophil# 0.03 X10^3/uL; Basophil% 0.6 % (0-1); Eosinophil# 0.02 X10^3/uL; Eosinophils% 0.4 % (0-5); Hematocrit 29.3 % (40-54); Lymphocyte # 1.44 X10^3/ul (0.83-4.51); Lymphocyte % 27.2 % (19-41); Mean Corp Hgb Conc 34.1 g/dL (32-36); Mean Corpuscular Hgb 30.2 pg (27.0-32.0); Mean Corpuscular Volume 88.5 fL (80-94); Mean Platelet Vol. 9.4 fl (6.2-12.0); Monocyte# 0.63 X10^3/uL; Monocyte% 11.9 % (0-10); NRBC Flagged by Analyzer 0 % (0-5); Neutrophil # 3.16 X10^3/uL (2.7-7.7); Neutrophil % 59.5 % (47-70); Platelet Count 278 K/mm3 (150-450); RBC Distribution Width CV 13.5 % (11.6-14.6); RBC Distribution Width SD 43.8 fl (35.1-43.9); Red Blood Count 3.31 M/mm3 (4.6-6.2); White Blood Count 5.3 K/mm3 (4.4-11.0)
[2022-07-26 04:45] LABS: ALB/GLOB Ratio 0.5 RATIO (0.9-2.4); AST(SGOT) 52 U/L (15-37); Alanine Aminotransfer ALT/SGPT 26 U/L (16-61); Alkaline Phosphatase 125 U/L (45-117); Anion Gap 11 (5-15); BUN 10 mg/dL (7-18); Calcium,Total 7.9 mg/dL (8.5-10.1); Chloride 109 mmol/L (98-107); Creatinine, Serum 0.67 mg/dL (0.70-1.30); EST Glomerular Filtration Rate 159 mL/min (>60); Est Glom Filt Rate - Afr Amer 192 mL/min (>60); Estimated Creatinine Clearance 172.92 ml/min; Globulin 3.7 g/dL (2.2-4.2); Glucose 223 mg/dL (74-106); Potassium 2.6 mmol/L (3.5-5.1); Protein, Total 5.7 g/dL (6.4-8.2); Sodium Level 137 mmol/L (136-145)
[2022-07-26] MEDS: Potassium Chloride Oral Tablet 20 MEQ 40 MEQ PO (05:14)
[2022-07-26] MEDS: Potassium Chloride 10mEq/100mL 10 MEQ/100 ML IV.SOLN. 100 MEQ IV BOLUS ×4 (05:17→10:18)
[2022-07-26] MEDS: 0.9% Saline Lock 10 ML Syringe IV (05:24)
--- NOTE | 2022-07-26 07:33 | PCM.PN.HOSP ---
Subjective Subjective Eating well. Does complain of left, lower, lateral chest pain. Objective Data Objective Data Vital Signs: Vital Signs Temp Pulse Resp BP Pulse Ox O2 Del Method 37.2 C 128 H 22 H 91/69 99 Room Air 07/26/22 05:00 07/26/22 07:00 07/26/22 07:00 07/26/22 07:00 07/26/22 07:00 07/26/22 07:00 Oxygen Delivery Method Room Air Weight: 75.6 kg Body Mass Index (BMI) 20.1 Intake & Output: Intake and Output for Last 24 Hours 07/24/22 07/25/22 07/26/22 23:59 23:59 23:59 Intake Total 2168.54 / 2168.54 8087.58 / 8087.58 1617.5 / 1617.5 Output Total 2325 / 2325 3125 / 3500 1175 / 1175 Balance -156.46 / -156.46 4962.58 / 4587.58 442.5 / 442.5 Medical Nutrition Assessment Dietitian: Malnutrition Criteria Met Start: 07/25/22 09:51 Freq: Status: Active Protocol: Document 07/25/22 09:51 AG (Rec: 07/25/22 09:51 AG [id number]) Nutrition Malnutrition Evidence of Malnutrition Exists Yes Malnutrition (moderate): Chronic Evidenced By Suboptimal Energy Intake ( Moderate),Physical Changes ( Moderate) Clinical Problem Chronic Disease or Condition Related Malnutrition Etiology chronic, moderate malnutrition related to inadequate energy intake w/ poorly controlled DM1 Signs/Symptoms as evidenced by moderate muscle wasting/fat loss evident per physical exam in orbital, clavicle, acromion, temporal areas; estimated PO intake meeting <75% of estimated energy needs >3 months Status Active Problem Recommendation Dietitian Recommendations/Changes advance diet as tolerated to 2200 calorie controlled/ consistent CHO; glucerna 120mL 4x/day w/ medpass when diet advanced. Lab / Micro Data Result Diagrams: 07/26/22 03:45 07/26/22 03:45 Labs: Laboratory Results - last 24 hr 07/25/22 08:03: POC Glucose 141 H 07/25/22 09:07: POC Glucose 140 H 07/25/22 10:34: POC Glucose 152 H 07/25/22 11:25: Sodium 141, Potassium 3.1 L, Chloride 115 H, Carbon Dioxide 20.0 L, Anion Gap 6, BUN 8, Creatinine 0.70, Estim Creat Clear Calc 165.51, Est GFR (MDRD) Af Amer 182, Est GFR (MDRD) Non-Af 151, BUN/Creatinine Ratio 11.4, Glucose 140 H, Calcium 8.4 L 07/25/22 11:25: POC Glucose 139 H 07/25/22 12:19: POC Glucose 130 H 07/25/22 15:28: POC Glucose 253 H 07/25/22 17:05: POC Glucose 278 H 07/25/22 20:58: POC Glucose 197 H 07/26/22 03:45: WBC 5.3, RBC 3.31 L, Hgb 10.0 L, Hct 29.3 L, MCV 88.5, MCH 30.2, MCHC 34.1, RDW Std Deviation 43.8, RDW Coeff of Rabia 13.5, Plt Count 278, MPV 9.4, Immature Gran % (Auto) 0.400, Neut % (Auto) 59.5, Lymph % (Auto) 27.2, [place] % (Auto) 11.9 H, Eos % (Auto) 0.4, Baso % (Auto) 0.6, Absolute Neuts (auto) 3.2, Absolute Lymphs (auto) 1.44, Nucleated RBC % 0 07/26/22 03:45: Sodium 137, Potassium 2.6 L*, Chloride 109 H, Carbon Dioxide 17.0 L, Anion Gap 11, BUN 10, Creatinine 0.67 L, Estim Creat Clear Calc 172.92, Est GFR (MDRD) Af Amer 192, Est GFR (MDRD) Non-Af 159, BUN/Creatinine Ratio 15.0, Glucose 223 H, Calcium 7.9 L, Total Bilirubin 1.10 H, AST 52 H, ALT 26, Alkaline Phosphatase 125 H, Total Protein 5.7 L, Albumin 2.0 L, Globulin 3.7, Albumin/Globulin Ratio 0.5 L Micro: Microbiology 07/24/22 17:50 Urine, Catheterized Urine Culture - Preliminary Gram Positive Cocci 07/24/22 17:50 Wound - Left Foot Gram Stain - Final 07/24/22 17:50 Wound - Left Foot Wound Culture - Preliminary Mixed Gram Positive Organisms 07/24/22 17:50 Nasal Secretion SARS-CoV-2 Antigen (Rapid) - Final Physical Exam Const alert and no apparent distress Neck no lymphadenopathy Resp normal respiratory effort, no retractions, no use of accessory muscles and clear to auscultation bilaterally Cardio S1 normal heart sound and S2 normal heart sound Cardio Narrative: Tachycardic. Regular. GI normal to inspection, nondistended, normoactive bowel sounds, soft to palpation and non-tender Skin Skin Narrative: Bilateral inguinal candidiasis. Bruising on the dorsum of his feet. Healing distal toe lesions on the left second and third toes. Assessment & Plan Assessment/Plan (1) Diabetic ketoacidosis associated with type 1 diabetes mellitus: QUALIFIERS: Diabetes mellitus complication detail: without coma Qualified Code(s): E10.10 - Type 1 diabetes mellitus with ketoacidosis without coma PLAN: Resolved Transitioned over to insulin glargine and prandial insulin and sliding scale insulin. Complicated by non-compliance. Pt denies being suicidal. Seems more laizze-faire approach to managing his diabetes (2) Non-pressure chronic ulcer of other part of left foot with fat layer exposed: PLAN: vancomycin. no OM on xray Podiatry on consult: conservative mgmt, no surgery at this time. add vancomycin Cx growing out mixed GPOs Patient does appear to have infection involving his left second and third toes but that overall seems to be improving but does have bruising on his feet. 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 (3) Tachycardia: PLAN: Persistent. Echocardiogram back on June 19, 2022 showed an EF of 55% Correct electrolyte derangements TSH is in normal limits at 1.57 Patient does complain of left-sided chest pain. Will check D-dimer, and if elevated, check a CT angiogram of the chest. Start low-dose beta-marleni as blood pressure allows. 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 Add nystatin. Likely contributed by the patient's poorly controlled diabetes PLAN: Plan depression: clearly pt is derepressed and lacks true desire to care for himself. Addressed with patient. Recommended outpt counseling. VTE prophylaxis: Charges/Coding Visit Charges Inpatient E&M: 14173 Subs Hosp L3
[2022-07-26] MEDS: Acetaminophen 325 MG Tablet 650 MG PO (08:00)
[2022-07-26 08:05] LABS: Magnesium 1.9 mg/dL (1.6-2.6); Thyroid Stim Hormone (TSH) 1.57 uIU/mL (0.358-3.74)
[2022-07-26] MEDS: Insulin Lispro 100 UNIT/ML INSULN.PEN 25 UNIT SC ×2 (08:35→13:08)
[2022-07-26] MEDS: Insulin Lispro 100 UNIT/ML INSULN.PEN SC ×2 (08:35→17:33)
[2022-07-26 09:11] LABS: Bedside Glucose 233 mg/dL (74-106)
--- NOTE | 2022-07-26 09:13 | WOUNDNOTE ---
wound photo: left 2nd and 3rd toes
--- NOTE | 2022-07-26 09:28 | CASEMGMT ---
SW participated in interdisciplinary rounds. It was suggested that patient see a counselor. Patient has had numerous admissions for DKA. Patient does not go to follow up appointments, does not take care of himself (hygiene or medical) including checking his blood sugars. Patient has been talked with by VERNON and RN CM's on all past admissions. There is question as to whether patient may have some mental health vs developmental delays and may not fully understand the risks of not taking care of himself especially diabetes. VERNON met with patient. Introduced self and role at [facility]. SW asked patient how things have been going and he said fine. SW asked patient if he is working and he is not due to his leg. SW asked about his leg. Patient said he had surgery a long time ago and they did something wrong and now it hurts to walk. SW asked about friends and patient said he has some, but they all work. SW asked patient if he has ever talked with a counselor or vp digital marketing social media and crm. Patient said he has not, but he would try. VERNON told patient SW will make an appointment for him and notify his grandma since she will be the one taking him to the appointment. Patient was in agreement. VERNON called [facility] and made a new patient appointment. Since patient is in the hospital it could be considered a hospital follow up so the appointment could be made earlier. Otherwise they are scheduling mid to end September. Patient will see Natalie Hudson for the intake appt on SundayAug 08 at 11:30a. VERNON will call patient's grandma and notify her of appt as well. VERNON will also ask the physician to place follow up with [facility] in d/c instructions. Counseling appointment with Natalie Hudson at [facility] SundayAug 08 at 11:30a. Marie KRUGER
[2022-07-26 09:51] LABS: D-Dimer Quantitative (DVT/PE) 3.59 FEU/ug/m (0.27-0.49)
--- NOTE | 2022-07-26 11:34 | CASEMGMT ---
VERNON called patient's grandma to let her know about counseling appointment. She did not answer so VERNON left a voice mail requesting a return call. Marie KRUGER
--- NOTE | 2022-07-26 11:52 | CT_ITS ---
STUDY: CTA CHEST REASON FOR EXAM: Male, 21 years old. tachycardia. RADIATION DOSAGE (If Supplied By Facility): CTDIvol = ( 6.36 ) mGy, DLP = ( 220.06 ) mGycm TECHNIQUE: The examination was performed with the intravenous administration of IV 100mL Isovue-370. Post-processing of the angiographic images was performed, with multiplanar reformation and 3D reconstruction. Individualized dose optimization techniques were used for this CT. COMPARISON: None. FINDINGS: There are small nonocclusive intraluminal filling defects in branches of the right lower pulmonary artery with pulmonary embolism. Normal thoracic aorta and visualized great vessels. There is no demonstrated aortic dissection. Moderate sized pericardial effusion. Normal mediastinum. Normal hilar regions. Normal visualized trachea and bronchi. The lungs are well expanded. Small bilateral pleural effusions with bibasilar atelectasis. Focal increased markings are seen in the anterior aspect of the right middle lobe suggestive of either atelectasis and/or early infiltrate. Normal chest wall structures. Normal osseous structures. Diffuse fluid in the subcutaneous tissues. CT/CTA Chest W/WO Contrast IMPRESSION: Pulmonary emboli in branches of the right lower lobe pulmonary artery. Bilateral pleural effusions with bibasilar atelectasis. Focal increased markings in the anterior aspect of the right middle lobe. Moderate sized pericardial effusion. Subcutaneous fluid in the thoracic and abdominal miller.. Electronically Signed: Willy Callahan MD at 12:27 EDT ,
[2022-07-26 12:30] LABS: Bedside Glucose 140 mg/dL (74-106)
--- NOTE | 2022-07-26 12:45 | ECHOD_ITS ---
Reason For Study: Pericardial effusion Procedure This was a 2D Doppler, Color Flow transthoracic echocardiogram. Myocardial strain analysis was performed in this exam to aid in the assessment of cardiac function. Exam performed portable in ICU/CCU. Left Ventricle Normal LV size. The estimated ejection fraction is 30 %. No regional wall motion abnormalities noted. Right Ventricle Normal RV size. Normal systolic function. Atria Normal left atrium. Mild collapse/invagination of the right atrium. Mitral Valve Normal mitral valve. Tricuspid Valve Normal tricuspid valve. Aortic Valve Normal aortic valve. Trisinus/trileaflet aortic valve. Pulmonic Valve Normal pulmonic valve. Great Vessels Normal aortic root. The pulmonary artery is normal size. The inferior vena cava is dilated. Pericardium/Pleural Moderate pericardial effusion. Measures 2.1 cm in the widest dimension. There is likely incipient tamponade physiology noted. MMode/2D Measurements & Calculations LVIDd: 3.6 cm IVSd: 1.5 cm Ao root diam: 2.4 cm LVIDs: 2.9 cm LVPWd: 1.4 cm RVDd: 2.4 cm FS: 20.3 % LAV(MOD-bp): 29.2 ml LVAd ap4: 21.4 cm2 LVAd ap2: 26.1 cm2 LAV(MOD-bp) Indexed: 14.7 ml/m2 LVLd ap4: 7.6 cm LVLd ap2: 8.0 cm LAV(MOD-sp2): 30.0 ml EDV(MOD-sp4): 50.3 ml EDV(MOD-sp2): 70.7 ml LAV(MOD-sp4): 26.7 ml EDV(sp4-el): 51.1 ml EDV(sp2-el): 72.2 ml LVAs ap4: 18.2 cm2 LVAs ap2: 20.6 cm2 LVLs ap4: 6.8 cm LVLs ap2: 7.7 cm ESV(MOD-sp4): 41.4 ml ESV(MOD-sp2): 47.7 ml ESV(sp4-el): 41.7 ml ESV(sp2-el): 47.1 ml EF(MOD-sp4): 17.7 % EF(MOD-sp2): 32.5 % EF(sp4-el): 18.4 % SV(MOD-sp4): 8.9 ml SV(MOD-sp2): 23.0 ml SV(sp4-el): 9.4 ml LA dimension(2D): 2.8 cm LA A4 area: 12.8 cm2 RA A4 area: 9.0 cm2 Doppler Measurements & Calculations MV E max trev: 37.8 cm/sec Lat Peak E' Trev: 4.5 cm/sec Med Peak E' Trev: 6.9 cm/sec MV A max trev: 54.3 cm/sec E/E' lat: 8.5 E/E' med: 5.4 MV E/A: 0.70 Ao V2 max: 68.2 cm/sec LV V1 max: 58.4 cm/sec PA V2 max: 74.2 cm/sec Ao max P.9 mmHg LV V1 max P.4 mmHg TR max trev: 166.2 cm/sec TR max P.1 mmHg ECHO/Echo Complete Interpretation Summary Normal LV size. The estimated ejection fraction is 30 %. No regional wall motion abnormalities noted. Mild collapse/invagination of the right atrium. The inferior vena cava is dilated Measures 2.1 cm in the widest dimension. There is likely incipient tamponade ph ysiology noted. The global longitudinal strain is severely abnormal. The global longitudinal st rain = -7.6% (abnormal). Ordering Physician: Diogenes Jacome Referring Physician: Lee Ann Henry Performed By: Darya Ramos RDCS
[2022-07-26 12:59] LABS: Vancomycin, Trough Level 12.9 ug/mL (5.0-15.0)
--- NOTE | 2022-07-26 13:06 | VDLE_ITS ---
Reason For Study: Elevated D-dimer RIGHT LEFT GSV is normal. GSV is normal. CFV is compressible, spontaneous, competent CFV is compressible, spontaneous, competent, and demonstrates pulsatile venous flow. and demonstrates pulsatile venous flow. FV is compressible, spontaneous, competent FV is compressible, spontaneous, competent and demonstrates pulsatile venous flow. and demonstrates pulsatile venous flow. POP V is compressible, spontaneous, competent POP V is compressible, spontaneous, competent and demonstrates pulsatile venous flow. and demonstrates pulsatile venous flow. Acute deep vein thrombosis is noted in the LT PerV is compressible. right T/P Trunk, GastrocV, PTV and PeroV. Acute deep vein thrombosis is noted in the Procedure left T/P Trunk, PTV, and GastrocV. This is a venous duplex using B-mode, color flow and spectral Doppler. Exam performed portable in ICU/CCU. Rouleaux flow noted throughout veins bilaterally. A preliminary report was called and/or faxed to ICU. VL/Venous Duplex US - Santo Extrem Interpretation Summary Acute deep vein thrombosis is noted in the right tibio-peroneal trunk, gastrocn emius vein, posterior tibial vein, peroneal vein Acute deep vein thrombosis is noted in the left tibio-peroneal trunk, gastrocne mius vein, posterior tibial vein Ordering Physician: Diogenes Jacome Referring Physician: Lee Ann Henry Performed By: Joana Saul RVT
[2022-07-26] MEDS: Metoprolol Tartrate 25 MG Tablet 12.5 MG PO (13:09)
[2022-07-26] MEDS: Nystatin Ointment 1 APPLIC TOPICAL (13:58)
[2022-07-26] MEDS: Furosemide 40 MG/4 ML Vial IV (14:04)
--- NOTE | 2022-07-26 14:22 | PCM.RX.CS ---
Consult Pharmacy has been consulted to manage selected antiobiotic: Vancomycin Type of Consult: Follow-up Suspected Infection: Other Prior Doses of Antibiotics Received/Current Regimen: current dose is vanc 1000mg IV q8h Labs: Sodium 137 mmol/L (136-145) 07/26/22 03:45 Potassium 2.6 mmol/L (3.5-5.1) L* 07/26/22 03:45 Chloride 109 mmol/L (98-107) H 07/26/22 03:45 Carbon Dioxide 17.0 mmol/L (21.0-32.0) L 07/26/22 03:45 Anion Gap 11 (5-15) 07/26/22 03:45 BUN 10 mg/dL (7-18) 07/26/22 03:45 Creatinine 0.67 mg/dL (0.70-1.30) L 07/26/22 03:45 Est GFR (MDRD) Af Amer 192 mL/min (>60) 07/26/22 03:45 Est GFR (MDRD) Non-Af 159 mL/min (>60) 07/26/22 03:45 BUN/Creatinine Ratio 15.0 RATIO (10-20) 07/26/22 03:45 Glucose 223 mg/dL (74-106) H 07/26/22 03:45 Vancomycin Trough 12.9 ug/mL (5.0-15.0) 07/26/22 12:10 Microbiology: Microbiology 07/24/22 17:50 Wound - Left Foot Gram Stain - Final 07/24/22 17:50 Wound - Left Foot Wound Culture - Preliminary Staphylococcus aureus Alpha Hemolytic Streptococcus Gram positive jo ann Streptococcus group C 07/24/22 17:50 Urine, Catheterized Urine Culture - Preliminary Staphylococcus aureus Coag Negative Staph GPC Poss Enterococcus sp Gram positive jo ann 07/24/22 17:50 Nasal Secretion SARS-CoV-2 Antigen (Rapid) - Final Weight used for dosin.6 kg Estimated Creatinine Clearance: 173ml/min Goal Trough: 15-20 mcg/mL Pharmacy Plan for Drug Dosing: The vanc trough drawn at 12:10 today (approx 8.5 hours after the previous dose) was 12.9. Since it is below goal range, will slightly increase next dose to 1250mg IV q8h. Will repeat a trough level before the 4th new dose tomorrow. Pharmacy Service will continue to monitor and adjust dosing as required. Follow-Up Labs: Trough Vancomycin Labs to be done on [date and time ordered]: 07/27/22 13:30
[2022-07-26 17:25] LABS: Bedside Glucose 175 mg/dL (74-106)
[2022-07-26] MEDS: Insulin Lispro 100 UNIT/ML INSULN.PEN 14 UNIT SC (17:33)
--- NOTE | 2022-07-26 18:03 | DS.PCM_ITS ---
Providers Date of Admission: 07/24/22 Primary Care Physician: Dr. Lee Ann Henry MD Consultations 07/24/22 20:08 Consult: Podiatry Routine Consulting Provider: Mauri Alas Reason for Consult: left 2nd and 3rd toe infection EMERGENT Consult: No MD Notified: Yes Date Notified: 07/24/22 Time Notified: 19:56 Method of Notification: Verbal 07/25/22 15:07 Consult: Onc/Wound/mold shifter Routine Comment: Reason for Consult:: left 2nd and 3rd toes Reason For Visit: DKA Diagnosis Discharge Diagnosis (1) Diabetic ketoacidosis associated with type 1 diabetes mellitus: Status: Acute Code(s): E10.10 - Type 1 diabetes mellitus with ketoacidosis without coma Qualifiers: Diabetes mellitus complication detail: without coma Qualified Code(s): E10.10 - Type 1 diabetes mellitus with ketoacidosis without coma Plan: Resolved Transitioned over to insulin glargine and prandial insulin and sliding scale insulin. Complicated by non-compliance. Pt denies being suicidal. Seems more laizze-faire approach to managing his diabetes (2) Non-pressure chronic ulcer of other part of left foot with fat layer exposed: Status: Chronic Code(s): L97.522 - Non-pressure chronic ulcer of other part of left foot with fat layer exposed Plan: vancomycin. no OM on xray Podiatry on consult: conservative mgmt, no surgery at this time. add vancomycin Cx growing out mixed GPOs Patient does appear to have infection involving his left second and third toes but that overall seems to be improving but does have bruising on his feet. 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 (3) Tachycardia: Status: Acute Code(s): R00.0 - Tachycardia, unspecified Plan: Persistent. Echocardiogram back on June 19, 2022 showed an EF of 55% Correct electrolyte derangements TSH is in normal limits at 1.57 Patient does complain of left-sided chest pain. Will check D-dimer, and if elevated, check a CT angiogram of the chest. Start low-dose beta-marleni as blood pressure allows. (4) Hypokalemia: Status: Acute Code(s): E87.6 - Hypokalemia Plan: Likely due to poor nutrition Replace Magnesium 1.9 (5) Severe protein-calorie malnutrition: Status: Acute Code(s): E43 - Unspecified severe protein-calorie malnutrition Plan: Nutrition following Glucerna with meals (6) Intertrigo of genitocrural region due to Minerva species: Status: Acute Code(s): B37.2 - Candidiasis of skin and nail Plan: Continue with fluconazole. Add nystatin. Likely contributed by the patient's poorly controlled diabetes (7) Pericardial effusion: Status: Acute Code(s): I31.3 - Pericardial effusion (noninflammatory) Plan: Patient had an echocardiogram and the grommet man called me stating that the patient had large pericardial effusion with incipient tamponade with mild collapse/invagination of the right atrium. He had recommended discussing with a tertiary facility. Patient also had pulsus paradoxus, where his blood pressure dropped 15 mmHg from exhalation to inhalation. I spoke with Dr. Boo, at [facility], and explained the patient's case and he agreed to accept the patient and patient be transferred to [facility] to their CVICU. Pericardiocentesis versus close monitoring versus pericardial window was expla ined to the patient and his family. The specialist that [facility] determine what would need to be done further. (8) Pleural effusion: Status: Acute Code(s): J90 - Pleural effusion, not elsewhere classified Plan: Patient has now a cardiomyopathy with an EF of 30% whereas on June 17 it was 55% and no pericardial effusion at that time. (9) Pulmonary emboli: Status: Acute Code(s): I26.99 - Other pulmonary embolism without acute cor pulmonale Plan: Duplex of his lower extremities were ordered and results are pending. Holding off on anticoagulation at this time in case intervention is needed for the pericardial effusion. Plan depression: clearly pt is derepressed and lacks true desire to care for himself. Addressed with patient. Recommended outpt counseling. Medications at Discharge Home Medications blood sugar diagnostic (OneTouch Verio test strips) #200 ea 09/08/21 pen needle, diabetic 32 gauge x /32 (BD Ultra-Fine Lorin Pen Needle) #360 ea 09/08/21 flash glucose sensor (FreeStyle Niru 14 Day Sensor kit) #2 ea 10/11/21 insulin glargine-yfgn 100 unit/mL (3 mL) subcutaneous pen 45 unit subcut QHS DM 07/24/22 insulin lispro 100 unit/mL subcutaneous pen (Humalog KwikPen (U-100) Insulin) 25 unit subcut TIDAC DM 07/24/22 insulin lispro 100 unit/mL subcutaneous pen (Humalog KwikPen (U-100) Insulin) See Protocol subcut ACHS DM 07/24/22 potassium chloride 20 mEq tablet,extended release(part/cryst) (Klor-Con M) 40 meq PO BID supplement 07/24/22 Hospital Course Operations None Procedures 2-D Echocardiogram Summary of Care Provided Minutes Spent on Discharge: 75 Hospital Course: Patient presents with DKA and left lower extremity cellulitis and inguinal intertrigo. Patient was started on antibiotics and as well as insulin drip and IV fluids. Patient disciplinary got out of DKA and was put on his basal and prandial insulin and has remained stable from a DKA standpoint. Patient was noted to be tachycardic and D-dimer was elevated and checked and CTA showed PE, pericardial fusion and pleural effusions. With the pericardial fusion, 2D echocardiogram was performed and showed an EF of 30% which was decreased from June 17 where he was 55% at that time. Additionally, there was noted mild collapse/invagination of the right atrium and noted to be incipient tamponade physiology noted. I discussed with Dr. Bernardo, who recommended discussing with a tertiary facility. So spoke with [facility] and patient was accepted and patient will be transferred there to the CVICU tonight. Medical Records Data Medical Nutrition Assessment Dietitian: Malnutrition Criteria Met Start: 07/25/22 09:51 Freq: Status: Active Protocol: Document 07/25/22 09:51 AG (Rec: 07/25/22 09:51 AG [id number]) Nutrition Malnutrition Evidence of Malnutrition Exists Yes Malnutrition (moderate): Chronic Evidenced By Suboptimal Energy Intake ( Moderate),Physical Changes ( Moderate) Clinical Problem Chronic Disease or Condition Related Malnutrition Etiology chronic, moderate malnutrition related to inadequate energy intake w/ poorly controlled DM1 Signs/Symptoms as evidenced by moderate muscle wasting/fat loss evident per physical exam in orbital, clavicle, acromion, temporal areas; estimated PO intake meeting <75% of estimated energy needs >3 months Status Active Problem Recommendation Dietitian Recommendations/Changes advance diet as tolerated to 2200 calorie controlled/ consistent CHO; glucerna 120mL 4x/day w/ medpass when diet advanced. Weight / BMI Weight Weight: 75.6 kg Body Mass Index (BMI) 20.1 ABG / Lab / Microbiology Data Result Diagrams: 07/26/22 03:45 07/26/22 03:45 Laboratory: Laboratory Results - last 24 hr 07/25/22 12:19: POC Glucose 130 H 07/25/22 20:58: POC Glucose 197 H 07/26/22 03:45: WBC 5.3, RBC 3.31 L, Hgb 10.0 L, Hct 29.3 L, MCV 88.5, MCH 30.2, MCHC 34.1, RDW Std Deviation 43.8, RDW Coeff of Rabia 13.5, Plt Count 278, MPV 9.4, Immature Gran % (Auto) 0.400, Neut % (Auto) 59.5, Lymph % (Auto) 27.2, [place] % (Auto) 11.9 H, Eos % (Auto) 0.4, Baso % (Auto) 0.6, Absolute Neuts (auto) 3.2, Absolute Lymphs (auto) 1.44, Nucleated RBC % 0 07/26/22 03:45: Sodium 137, Potassium 2.6 L*, Chloride 109 H, Carbon Dioxide 17.0 L, Anion Gap 11, BUN 10, Creatinine 0.67 L, Estim Creat Clear Calc 172.92, Est GFR (MDRD) Af Amer 192, Est GFR (MDRD) Non-Af 159, BUN/Creatinine Ratio 15.0, Glucose 223 H, Calcium 7.9 L, Total Bilirubin 1.10 H, AST 52 H, ALT 26, Alkaline Phosphatase 125 H, Total Protein 5.7 L, Albumin 2.0 L, Globulin 3.7, Albumin/Globulin Ratio 0.5 L 07/26/22 03:45: Magnesium 1.9, TSH 1.57 07/26/22 08:33: POC Glucose 233 H 07/26/22 09:30: D-Dimer Quant (PE/DVT) 3.59 H* 07/26/22 12:05: POC Glucose 140 H 07/26/22 12:10: Vancomycin Trough 12.9 07/26/22 17:05: POC Glucose 175 H Microbiology: Microbiology 07/24/22 17:50 Wound - Left Foot Gram Stain - Final 07/24/22 17:50 Wound - Left Foot Wound Culture - Preliminary Staphylococcus aureus Alpha Hemolytic Streptococcus Gram positive jo ann Streptococcus group C 07/24/22 17:50 Urine, Catheterized Urine Culture - Preliminary Staphylococcus aureus Coag Negative Staph GPC Poss Enterococcus sp Gram positive jo ann 07/24/22 17:50 Nasal Secretion SARS-CoV-2 Antigen (Rapid) - Final Radiography Diagnostic Testing: Radiology Impression Chest CTA 07/26/22 11:52 IMPRESSION: Pulmonary emboli in branches of the right lower lobe pulmonary artery. Bilateral pleural effusions with bibasilar atelectasis. Focal increased markings in the anterior aspect of the right middle lobe. Moderate sized pericardial effusion. Subcutaneous fluid in the thoracic and abdominal miller.. Electronically Signed: Willy Callahan MD at 12:27 EDT , Echocardiogram 07/26/22 12:45 Interpretation Summary Normal LV size. The estimated ejection fraction is 30 %. No regional wall motion abnormalities noted. Mild collapse/invagination of the right atrium. The inferior vena cava is dilated Measures 2.1 cm in the widest dimension. There is likely incipient tamponade physiology noted. The global longitudinal strain is severely abnormal. The global longitudinal strain = -7.6% (abnormal). Ordering Physician: Diogenes Jacome Referring Physician: Lee Ann Henry Performed By: Darya Ramos RDCS Meaningful Use Info Meaningful Use Diagnoses (Choose all that apply): None applicable Discharge Plan Admission Admit Date/Time: 07/24/22 19:36 Attending Provider: Diogenes Jacome Primary Care Provider: Lee Ann Henry Consulting Providers: Satish Be ; Mauri Alas Discharge Orders/Prescriptions Prescriptions: No Action (DME) OneTouch Verio test strips Strip See Rx Instructions .ROUTE .MEDSUPPLY Qty: 200 6RF Rx Instructions: 4x/day (DME) pen needle, diabetic [BD Ultra-Fine Lorin Pen Needle] 32 gauge x 5/32 needle See Rx Instructions .ROUTE .MEDSUPPLY Qty: 360 6RF Rx Instructions: As directed (DME) FreeStyle Niru 14 Day Sensor Kit See Rx Instructions .ROUTE .MEDSUPPLY Qty: 2 5RF Rx Instructions: As directed insulin glargine-yfgn 100 unit/mL (3 mL) insulin pen 45 unit subcut QHS potassium chloride [Klor-Con M20] 20 mEq tablet,ER particles/crystals 40 meq PO BID insulin lispro [Humalog KwikPen Insulin] 100 unit/mL insulin pen See Protocol subcut ACHS Protocol: 1. Sliding Scale Insulin Low Dosing Condition: 150-224 mg/dl = 1 unit Condition: 225-299 mg/dl = 2 units Condition: 300-374 mg/dl = 3 units Condition: 375-499 mg/dl = 4 units Condition: Greater than 449 call physician Protocol Text: - Use for Total Daily Dose of Insulin 15-27 units - Thin, elderly, renal patients LOW DOSING ALGORITHM insulin lispro [Humalog KwikPen Insulin] 100 unit/mL insulin pen 25 unit subcut TIDAC Referrals / Follow Up: Natalie Hudson [Other] - 08/08/22 11:30 am Lee Ann Henry MD [Primary Care Provider] - 08/01/22 9:45 am Disposition Disposition (needs filled in before D/C Order can be placed): Acute Care Hospital Charges/Coding Visit Charges Inpatient E&M: 13230 Disch Hosp
--- NOTE | 2022-07-28 14:50 | EX.ED.DYSGE1 ---
HPI History of Present Illness Chief Complaint: Hyperglycemia [facility] Medical History (Updated 08/03/22 @ 00:02 by Art Traore) Asthma Diabetes mellitus type 1 Diabetic ketoacidosis associated with type 1 diabetes mellitus femur surgery GERD (gastroesophageal reflux disease) Hypokalemia Kidney disease Lower extremity edema Nausea and vomiting Non-smoker Noncompliance Nonhealing surgical wound Psychosocial problem Severe protein-calorie malnutrition Sinus tachycardia seen on cloth spreader screen printing Ulcer of leg, chronic Wound of left lower extremity Home Medications blood sugar diagnostic (OneTouch Verio test strips) #200 ea 09/08/21 [Rx Last Taken Unknown] pen needle, diabetic 32 gauge x 5/32 (BD Ultra-Fine Lorin Pen Needle) #360 ea 09/08/21 [Rx Last Taken Unknown] flash glucose sensor (FreeStyle Niru 14 Day Sensor kit) #2 ea 10/11/21 [Rx Last Taken Unknown] insulin glargine-yfgn 100 unit/mL (3 mL) subcutaneous pen 45 unit subcut QHS DM 07/24/22 [History Last Taken Unknown] insulin lispro 100 unit/mL subcutaneous pen (Humalog KwikPen (U-100) Insulin) 25 unit subcut TIDAC DM 07/24/22 [History Last Taken Unknown] insulin lispro 100 unit/mL subcutaneous pen (Humalog KwikPen (U-100) Insulin) See Protocol subcut ACHS DM 07/24/22 [History Last Taken Unknown] potassium chloride 20 mEq tablet,extended release(part/cryst) (Klor-Con M) 40 meq PO BID supplement 07/24/22 [History Last Taken Unknown] Allergy/AdvReac Type Severity Reaction Status Date / Time Milk Containing Products AdvReac Diarrhea Verified 07/24/22 17:13 Family History Father Polysubstance overdose Patient father young secondary to OD. Mother Iron deficiency anemia Other Asthma CVA (cerebral vascular accident) Diabetes Hypertension Thyroid disorder Surgical History H/O right knee surgery History of surgery on extremity Hx of knee surgery Social History housing: other details: Lives with his grandmother, aunt and mother. Smoking Status: Never smoker alcohol intake: current alcohol intake frequency: a few times a month substance use type: does not use MDM MDM Radiography Diagnostic Testing: Clinical Impression(s) from Imaging Studies Shoulder X-Ray 07/24/22 17:28 IMPRESSION: No acute fracture or other significant bony pathology. Electronically Signed: Jef Rogers MD at 18:26 EDT , Chest X-Ray 07/24/22 17:29 IMPRESSION: Normal x-ray examination of the chest. Electronically Signed: Jef Rogers MD at 18:24 EDT , Foot X-Ray 07/24/22 18:00 IMPRESSION: Normal x-ray examination of the foot. If strong clinical suspicion for acute osteomyelitis, three-phase bone scan or MRI recommended for further evaluation Electronically Signed: Jef Rogers MD at 18:25 EDT , Discharge Plan Dx/Rx/DC Orders Clinical Impression: Diabetic ketoacidosis associated with type 1 diabetes mellitus, Non-pressure chronic ulcer of other part of left foot with fat layer exposed, Tachycardia, Candidiasis of scrotum, History of medication noncompliance, Encephalopathy acute Disposition Disposition: Acute Care [facility]
== END 2022-07-26 19:30 | disposition short-term general hospital (02) | DRG 420 ==
LOC: ED 18:23 → ICU 18:49
PROVIDERS: Admitting Provider Internal Medicine; Emergency Provider Emergency Medicine; PCP Internal Medicine
DX: E10.10 Type 1 diabetes mellitus with ketoacidosis without coma (principal); I26.99 Other pulmonary embolism without acute cor pulmonale; E44.0 Moderate protein-calorie malnutrition; E10.621 Type 1 diabetes mellitus with foot ulcer; I31.3 Pericardial effusion (noninflammatory); L03.116 Cellulitis of left lower limb; L97.522 Non-pressure chronic ulcer of other part of left foot with fat layer exposed; Z79.4 Long term (current) use of insulin; J90 Pleural effusion, not elsewhere classified; J45.909 Unspecified asthma, uncomplicated; K21.9 Gastro-esophageal reflux disease without esophagitis; E87.6 Hypokalemia; L30.4 Erythema intertrigo; Z91.14 Patient's other noncompliance with medication regimen; R46.0 Very low level of personal hygiene; F32.A Depression, unspecified; R00.0 Tachycardia, unspecified; B37.2 Candidiasis of skin and nail; Z68.20 Body mass index [BMI] 20.0-20.9, adult
CPT/HCPCS: 71046; 71275; 73030; 73630; 80048; 80053; 80202; 81001; 82009; 82550; 82962; 83605; 83735; 84100; 84443; 85025; 85379; 85610; 85652; 85730; 86140; 87040; 87070; 87077; 87086; 87088; 87186; 87205; 87811; 93005; 93306; 93970; 97802; 97803; 99285; J7030; J7040; J7050; Q9967; A4216; J1940; J7799

== ENCOUNTER → 2022-08-14 | Outpatient (CLI) | payer MEDICAID, SELFPAY ==
[2022-08-14 14:36] LABS: Absolute Lymphocyte Count 1.93 X10^3/uL (0.83-4.51); Absolute Neutrophil Count 3.1 X10^3/uL (2.0-7.7); Basophil# 0.11 X10^3/uL; Basophil% 1.9 % (0-1); Eosinophil# 0.33 X10^3/uL; Eosinophils% 5.7 % (0-5); Hematocrit 31.4 % (40-54); Hemoglobin 9.8 g/dL (13.0-16.5); Lymphocyte # 1.93 X10^3/ul (0.83-4.51); Mean Corp Hgb Conc 31.2 g/dL (32-36); Mean Corpuscular Hgb 30.2 pg (27.0-32.0); Mean Corpuscular Volume 96.9 fL (80-94); Mean Platelet Vol. 9.1 fl (6.2-12.0); Monocyte# 0.35 X10^3/uL; NRBC Flagged by Analyzer 0 % (0-5); Neutrophil % 53.1 % (47-70); Platelet Count 473 K/mm3 (150-450); RBC Distribution Width CV 14.1 % (11.6-14.6); RBC Distribution Width SD 50.2 fl (35.1-43.9); Red Blood Count 3.24 M/mm3 (4.6-6.2); White Blood Count 5.8 K/mm3 (4.4-11.0)
[2022-08-14 15:01] LABS: AST(SGOT) 10 U/L (15-37); Alanine Aminotransfer ALT/SGPT 14 U/L (16-61); Albumin, Serum 2.6 g/dL (3.2-5.0); Alkaline Phosphatase 99 U/L (45-117); Bilirubin, Direct 0.16 mg/dL (0.00-0.30); CRP < 2.90 mg/L (0.0-3.0); Creatinine, Serum 0.41 mg/dL (0.70-1.30); EST Glomerular Filtration Rate 280 mL/min (>60); Est Glom Filt Rate - Afr Amer 339 mL/min (>60); Globulin 4.2 g/dL (2.2-4.2); Protein, Total 6.8 g/dL (6.4-8.2)
== END | disposition home or self-care (01) ==
PROVIDERS: PCP Internal Medicine
DX: L08.9 Local infection of the skin and subcutaneous tissue, unspecified (principal); B95.61 Methicillin susceptible Staphylococcus aureus infection as the cause of diseases classified elsewhere
CPT/HCPCS: 36592; 80076; 82565; 85025; 86140; A4216

== ENCOUNTER → 2022-08-21 | Outpatient (CLI) | payer MEDICAID, SELFPAY ==
[2022-08-21 15:31] LABS: Absolute Lymphocyte Count 2.03 X10^3/uL (0.83-4.51); Absolute Neutrophil Count 2.2 X10^3/uL (2.0-7.7); Eosinophil# 0.19 X10^3/uL; Eosinophils% 3.8 % (0-5); Hematocrit 32.7 % (40-54); Hemoglobin 10.6 g/dL (13.0-16.5); Lymphocyte # 2.03 X10^3/ul (0.83-4.51); Lymphocyte % 41.1 % (19-41); Mean Corp Hgb Conc 32.4 g/dL (32-36); Mean Corpuscular Hgb 29.7 pg (27.0-32.0); Mean Corpuscular Volume 91.6 fL (80-94); Mean Platelet Vol. 8.7 fl (6.2-12.0); Monocyte# 0.41 X10^3/uL; Monocyte% 8.3 % (0-10); NRBC Flagged by Analyzer 0 % (0-5); Neutrophil % 44.6 % (47-70); Platelet Count 491 K/mm3 (150-450); RBC Distribution Width CV 13.2 % (11.6-14.6); RBC Distribution Width SD 44.5 fl (35.1-43.9); Red Blood Count 3.57 M/mm3 (4.6-6.2); White Blood Count 4.9 K/mm3 (4.4-11.0)
[2022-08-21 15:51] LABS: AST(SGOT) 8 U/L (15-37); Alanine Aminotransfer ALT/SGPT 15 U/L (16-61); Albumin, Serum 3.1 g/dL (3.2-5.0); Alkaline Phosphatase 99 U/L (45-117); Bilirubin, Direct 0.18 mg/dL (0.00-0.30); CRP < 2.90 mg/L (0.0-3.0); Creatinine, Serum 0.47 mg/dL (0.70-1.30); EST Glomerular Filtration Rate 238 mL/min (>60); Est Glom Filt Rate - Afr Amer 287 mL/min (>60); Globulin 4.1 g/dL (2.2-4.2); Protein, Total 7.2 g/dL (6.4-8.2)
== END | disposition home or self-care (01) ==
PROVIDERS: PCP Internal Medicine
DX: L08.9 Local infection of the skin and subcutaneous tissue, unspecified (principal); B95.8 Unspecified staphylococcus as the cause of diseases classified elsewhere
CPT/HCPCS: 36592; 80076; 82565; 85025; 86140; A4216

== ENCOUNTER → 2022-08-28 | Outpatient (CLI) | payer MEDICAID, SELFPAY ==
[2022-08-28 09:35] LABS: Absolute Lymphocyte Count 1.46 X10^3/uL (0.83-4.51); Absolute Neutrophil Count 2.4 X10^3/uL (2.0-7.7); Basophil# 0.05 X10^3/uL; Basophil% 1.1 % (0-1); Eosinophil# 0.16 X10^3/uL; Eosinophils% 3.6 % (0-5); Hematocrit 35.8 % (40-54); Hemoglobin 12.2 g/dL (13.0-16.5); Lymphocyte # 1.46 X10^3/ul (0.83-4.51); Lymphocyte % 33.1 % (19-41); Mean Corp Hgb Conc 34.1 g/dL (32-36); Mean Corpuscular Hgb 28.9 pg (27.0-32.0); Mean Corpuscular Volume 84.8 fL (80-94); Mean Platelet Vol. 9.1 fl (6.2-12.0); Monocyte# 0.31 X10^3/uL; NRBC Flagged by Analyzer 0 % (0-5); Neutrophil # 2.42 X10^3/uL (2.7-7.7); Platelet Count 344 K/mm3 (150-450); RBC Distribution Width CV 13.1 % (11.6-14.6); RBC Distribution Width SD 40.5 fl (35.1-43.9); Red Blood Count 4.22 M/mm3 (4.6-6.2); White Blood Count 4.4 K/mm3 (4.4-11.0)
[2022-08-28 09:58] LABS: AST(SGOT) 11 U/L (15-37); Alanine Aminotransfer ALT/SGPT 19 U/L (16-61); Albumin, Serum 3.6 g/dL (3.2-5.0); Alkaline Phosphatase 126 U/L (45-117); Bilirubin, Direct 0.26 mg/dL (0.00-0.30); CRP < 2.90 mg/L (0.0-3.0); Creatinine, Serum 0.68 mg/dL (0.70-1.30); EST Glomerular Filtration Rate 154 mL/min (>60); Est Glom Filt Rate - Afr Amer 187 mL/min (>60); Globulin 3.7 g/dL (2.2-4.2); Protein, Total 7.3 g/dL (6.4-8.2)
== END | disposition home or self-care (01) ==
LOC: MEDOUTP 08:58
PROVIDERS: PCP Internal Medicine
DX: Z79.899 Other long term (current) drug therapy (principal); Z45.2 Encounter for adjustment and management of vascular access device
CPT/HCPCS: 36592; 80076; 82565; 85025; 86140; A4216

== ENCOUNTER → 2022-08-31 | Outpatient (CLI) | payer MEDICAID, SELFPAY | END | disposition home or self-care (01) | LOC: MEDOUTP 13:59 | PROVIDERS: PCP Internal Medicine; Referring Provider Internal Medicine; Visit Provider Internal Medicine | DX: Z00.00 Encounter for general adult medical examination without abnormal findings (principal); Z45.2 Encounter for adjustment and management of vascular access device ==

== ENCOUNTER 2022-09-17 08:46 | Inpatient (IN) | payer MEDICAID, SELFPAY ==
[2022-09-17] VITALS (51 sets, daily range): BP systolic 66–133; BP diastolic 35–85; PULSE 88–106; RESP 10–28; TEMP 33.2–39; O2SAT 90–100; BMI 19.0; BMI 17.6
--- NOTE | 2022-09-17 08:53 | RAD_ITS ---
STUDY: X-RAY CHEST REASON FOR EXAM: Male, 21 years old. Chest pain TECHNIQUE: Single AP portable view of the chest. COMPARISON: 07/24/2022 FINDINGS: EKG leads overlie the chest The lungs are clear and expanded. There is no demonstrated pleural abnormality. Normal size heart. Normal mediastinum and rudi. Normal visualized pulmonary arteries. Normal visualized aortic arch and descending thoracic aorta. Normal visualized thoracic spine. Normal visualized ribs, clavicles, and shoulders. There is no demonstrated abnormality of the visualized soft tissue structures of the upper abdomen. RAD/Chest 1 View (Portable) IMPRESSION: Normal x-ray examination of the chest. Electronically Signed: Abram Mireles MD at 9:27 EST ,
--- NOTE | 2022-09-17 08:53 | CT_ITS ---
STUDY: CT BRAIN WITHOUT CONTRAST REASON FOR EXAM: Male, 21 years old. Altered mental status RADIATION DOSAGE (If Supplied By Facility): CTDIvol = ( 44.99 ) mGy, DLP = ( 812.98 ) mGycm TECHNIQUE: Transaxial CT imaging of the brain was performed without administration of intravenous contrast material. Individualized dose optimization techniques were used for this CT. COMPARISON: No relevant priors. FINDINGS: Normal soft tissue structures. Normal calvarium. Normal size ventricles and extra-axial spaces for the patient''s age. Normal white matter tracts of the cerebral hemispheres. Normal basal ganglia and thalami. Normal brainstem. Normal cerebellum. There is no intracranial hemorrhage. There are no findings of an acute ischemic infarction. Normal visualized paranasal sinuses. CT/Brain/Head without Contrast IMPRESSION: Normal unenhanced CT scan of the brain. Electronically Signed: Abram Mireles MD at 10:01 EST ,
--- NOTE | 2022-09-17 08:53 | EKG12_ITS ---
Test Reason : SOB Blood Pressure : / mmHG Vent. Rate : 093 BPM Atrial Rate : 093 BPM P-R Int : 152 ms QRS Dur : 106 ms QT Int : 400 ms P-R-T Axes : 073 077 073 degrees QTc Int : 497 ms Normal sinus rhythm Prolonged QT Abnormal ECG Confirmed by YANE CASTILLO, ROXANNE ([id number]), editor in chief AYESHA VALLE ([id number]) on 09/20/2022 11:29:24 AM Referred By: Confirmed By:ROXANNE CHE MD
--- NOTE | 2022-09-17 08:53 | CT_ITS ---
STUDY: CT CERVICAL SPINE WITHOUT CONTRAST REASON FOR EXAM: Male, 21 years old. Headache and neck pain RADIATION DOSAGE (If Supplied By Facility): CTDIvol = ( 20.79 ) mGy, DLP = ( 494.61 ) mGycm TECHNIQUE: High resolution transaxial imaging was performed without contrast material. Sagittal and coronal images were reconstructed. Individualized dose optimization techniques were used for this CT. COMPARISON: None FINDINGS: Normal craniovertebral junction. Normal anterior atlantoaxial articulation. Normal odontoid process. Normal cervical lordosis. Normal vertebral bodies and posterior osseous elements. C2-3: Normal endplates. Normal disc height and morphology. Normal central canal and intervertebral neuroforamina. C3-4: Normal endplates. Normal disc height and morphology. Normal central canal and intervertebral neuroforamina. C4-5: Normal endplates. Normal disc height and morphology. Normal central canal and intervertebral neuroforamina. C5-6: Normal endplates. Normal disc height and morphology. Normal central canal and intervertebral neuroforamina. C6-7: Normal endplates. Normal disc height and morphology. Normal central canal and intervertebral neuroforamina. C7-T1: Normal endplates. Normal disc height and morphology. Normal central canal and intervertebral neuroforamina. Normal visualized soft tissue structures. CT/Spine Cervical without Contras IMPRESSION: Normal unenhanced CT examination of the cervical spine. Electronically Signed: Abram Mireles MD at 10:01 EST ,
--- NOTE | 2022-09-17 08:57 | EX.ED.GENINJ ---
HPI History of Present Illness Chief Complaint: Fall Narrative Narrative: 21-year-old male presenting with altered mental status. Patient's grandmother is with him. She states that she witnessed him this morning cleaning himself and acting otherwise normal and then states he fell losing consciousness and hitting his head. He has not been responsive since. Patient is a known poorly controlled type I diabetic with history of DKA. Patient was admitted to [facility] reportedly from [facility] after developing a pericardial effusion. He was admitted to [facility] on 07/26/2022. He was being treated for DKA prior to transfer. He had a large pericardial effusion with tamponade physiology when he was transferred to [facility]. He had initial pericardiocentesis by cardiology and the drain was removed however he had recurrent pericardial effusion and thoracic surgery did do a pericardial window. Pericardial fluid culture was positive for MSSA patient that point had a left foot infection with signs of myositis and tenosynovitis of the flexor tendons. He was treated with oxacillin. Patient also found to have popliteal vein DVT and was initially on heparin but was transitioned to Xarelto. At [facility] he was also diagnosed with pericarditis. [facility] Medical History Asthma Diabetes mellitus type 1 Diabetic ketoacidosis associated with type 1 diabetes mellitus femur surgery GERD (gastroesophageal reflux disease) Hypokalemia Kidney disease Lower extremity edema Nausea and vomiting Non-smoker Noncompliance Nonhealing surgical wound Psychosocial problem Severe protein-calorie malnutrition Sinus tachycardia seen on monitor tech Ulcer of leg, chronic Wound of left lower extremity Home Medications blood sugar diagnostic (OneTouch Verio test strips) #200 ea 09/08/21 [Rx Last Taken Unknown] pen needle, diabetic 32 gauge x 5/32 (BD Ultra-Fine Lorin Pen Needle) #360 ea 09/08/21 [Rx Last Taken Unknown] flash glucose sensor (FreeStyle Niru 14 Day Sensor kit) #2 ea 10/11/21 [Rx Last Taken Unknown] insulin glargine-yfgn 100 unit/mL (3 mL) subcutaneous pen 45 unit subcut QHS DM 07/24/22 [History Last Taken Unknown] insulin lispro 100 unit/mL subcutaneous pen (Humalog KwikPen (U-100) Insulin) 25 unit subcut TIDAC DM 07/24/22 [History Last Taken Unknown] insulin lispro 100 unit/mL subcutaneous pen (Humalog KwikPen (U-100) Insulin) See Protocol subcut ACHS DM 07/24/22 [History Last Taken Unknown] potassium chloride 20 mEq tablet,extended release(part/cryst) (Klor-Con M) 40 meq PO BID supplement 07/24/22 [History Last Taken Unknown] colchicine 0.6 mg tablet 0.6 mg PO BID 09/17/22 [History Last Taken Unknown] rivaroxaban 20 mg tablet (Xarelto) 20 mg PO DAILY 09/17/22 [History Last Taken Unknown] Allergy/AdvReac Type Severity Reaction Status Date / Time Milk Containing Products AdvReac Diarrhea Verified 09/17/22 08:47 Family History Father Polysubstance overdose Patient father young secondary to OD. Mother Iron deficiency anemia Other Asthma CVA (cerebral vascular accident) Diabetes Hypertension Thyroid disorder Surgical History H/O right knee surgery History of surgery on extremity Hx of knee surgery Social History housing: other details: Lives with his grandmother, aunt and mother. Smoking Status: Never smoker alcohol intake: current alcohol intake frequency: a few times a month substance use type: does not use ROS ROS ED Review of Systems ROS Unobtainable: due to mental status EXAM Physical Exam Const Vital Signs: 09/17/22 08:48 09/17/22 08:51 09/17/22 08:57 Temperature 96.0 F L Temperature Source Temporal Pulse Rate 98 Respiratory Rate 23 H Respiratory Pattern Tachypnea Blood Pressure 119/71 Blood Pressure Mean 87 Pulse Ox 98 100 100 Oxygen Delivery Method Non-Rebreather Non-Rebreather Non-Rebreather Oxygen Flow Rate (L/min) 15 Fraction of Inspired Oxygen (FIO2) 100 09/17/22 09:16 09/17/22 09:18 09/17/22 09:15 Temperature 92.5 F L Temperature Source Core Pulse Rate 99 Respiratory Rate 13 25 H Respiratory Pattern Normal Blood Pressure 101/64 Blood Pressure Mean 76 Pulse Ox 100 Oxygen Delivery Method Ambu-Bag Oxygen Flow Rate (L/min) Fraction of Inspired Oxygen (FIO2) 55 09/17/22 11:02 09/17/22 11:02 Temperature 91.8 F L Temperature Source Core Pulse Rate 97 97 Respiratory Rate 14 14 Respiratory Pattern Blood Pressure 133/75 H 133/75 H Blood Pressure Mean 94 94 Pulse Ox 100 100 Oxygen Delivery Method Mechanical Ventilator Mechanical Ventilator Oxygen Flow Rate (L/min) Fraction of Inspired Oxygen (FIO2) 30 30 Positive cachectic Constitutional Narrative: Unresponsive General Appearance ED: cachectic Nutritional Appearance: cachectic HEENT HEENT Narrative: Bruising noted to the right eyebrow. Eyes General Eye ED: Yes other Other Details: Pupils fixed and mid dilated. No response to threat. Chest Wall inspection of chest normal Resp Resp Narrative: Tachypneic. 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 Cardio regular rhythm Rate: regular rate GI normal to inspection, nondistended, normoactive bowel sounds Neuro [place] Coma Scale: document GCS findings None None None 3 Psych Psych Narrative: Obtunded Skin Skin Narrative: Abrasions/contusions noted to the right lower abdomen and right hip. There are 3 small areas about 2 to 3 cm each. There is also superficial abrasion to the left elbow and to the left knee. MDM MDM MDM Narrative Medical decision making narrative: Patient presenting with altered mental status. His signs of trauma to the right side of his forehead and he is on Xarelto for history of DVT/PE. Because the patient's GCS is 3 the decision was made to intubate the patient because he is not responsive. I did obtain a chest x-ray prior to intubation due to the patient's recent pericardiocentesis and pericardial window to ensure he does not have an obvious pneumothorax prior to intubation. On my interpretation is chest x-ray shows no acute cardiopulmonary process. There is no evidence of pneumothorax. Cardiac silhouette is not enlarged. 20 mg of etomidate and 40 mg of rocuronium were used for RSI. Patient was intubated with 7 and half ET tube at 24 cm at the lips. Good color change noted on capnography. Equal bilateral breath sounds. Because of the injuries noted on the side of his abdomen I will obtain imaging of the chest abdomen and pelvis to assess for internal injuries. CT of the brain and cervical spine are also ordered. EKG was obtained and on my interpretation this is sinus rhythm with a rate of 93 bpm without sign of ischemic change. Parable 150 ms, QRS duration 106 ms, QTC 497 ms. Follow-up chest x-ray post intubation shows that the ET tube is in place on my interpretation. KUB is obtained and on my interpretation the OG tube appears to be in adequate position. CBC shows leukocytosis at 15.6, hemoglobin stable at 13.8, hematocrit 40.2, platelets 524. PT slightly prolonged 18.4. INR 1.6, PTT 29.4. Creatinine 1.33 with a GFR of 72. This creatinine is elevated for the patient.. Patient's glucose is 644 with anion gap of 30 with small serum acetone. Patient given 2 L of fluids for dehydration and hyperglycemia. Magnesium is within normal limits. Lactic acid 3. 4. High-sensitivity troponin came back at 6. CT of the brain and cervical spine show no acute pathology. CT of the chest abdomen pelvis shows bilateral hydronephrosis and hydroureter without perinephric or periureteral inflammatory stranding. I do not see any evidence of pericardial effusion or pleural effusion which the patient was transferred for previously. I feel that he could stay at [facility] and be treated for DKA. Since his urine was pending and he has bilateral hydronephrosis I gave him a dose of Rocephin. Patient was pancultured. He is on insulin drip currently. He is also on a fentanyl drip for sedation. Impression: 1. Leukocytosis 2. DKA 3. Bilateral hydronephrosis. 4. Acute kidney injury 5. Lactic acidosis 6. Altered mental status Lab Data Attestation: I reviewed the patient's lab results. Labs: Laboratory Results - last 24 hr 09/17/22 09/17/22 09/17/22 08:55 08:55 08:55 WBC 15.6 H RBC 5.53 Hgb 15.8 Hct 48.2 MCV 87.2 MCH 28.6 MCHC 32.8 RDW Std Deviation 48.2 H RDW Coeff of Rabia 15.2 H Plt Count 524 H MPV 10.0 Immature Gran % (Auto) 3.300 H Neut % (Auto) 63.4 Lymph % (Auto) 26.0 [place] % (Auto) 6.2 Eos % (Auto) 0.2 Baso % (Auto) 0.9 Absolute Neuts (auto) 9.9 H Absolute Lymphs (auto) 4.05 Nucleated RBC % 0 PT 18.4 H INR 1.6 APTT 29.4 Sodium 133 L Potassium 3.9 Chloride 100 Carbon Dioxide 3.0 L* Anion Gap 30 H BUN 19 H Creatinine 1.33 H Estim Creat Clear Calc 81.40 Est GFR (MDRD) Af Amer 87 Est GFR (MDRD) Non-Af 72 BUN/Creatinine Ratio 14.3 Glucose 644 H* Lactic Acid Calcium 9.2 Magnesium 2.6 Total Bilirubin 0.70 AST 8 L ALT 12 L Alkaline Phosphatase 173 H Total Creatine Kinase 50 Troponin I High Sens 6 Total Protein 8.4 H Albumin 4.5 Globulin 3.9 Albumin/Globulin Ratio 1.2 Urine Color Urine Clarity Urine pH Ur Specific Dickinson Urine Protein Urine Glucose (UA) Urine Ketones Urine Occult Blood Urine Nitrite Urine Bilirubin Urine Urobilinogen Ur Leukocyte Esterase Urine RBC Urine WBC Ur Squamous Epith Cells Urine Bacteria Urine Mucus Urine Opiates Screen Urine Methadone Screen Ur Barbiturates Screen Ur Phencyclidine Scrn Ur Amphetamines Screen MDMA (Ecstasy) Screen U Benzodiazepines Scrn Urine Cocaine Screen U Cannabinoids Screen Ur Drug Screen Comment Acetone Level 09/17/22 09/17/22 09/17/22 08:55 08:55 10:50 WBC RBC Hgb Hct MCV MCH MCHC RDW Std Deviation RDW Coeff of Rabia Plt Count MPV Immature Gran % (Auto) Neut % (Auto) Lymph % (Auto) [place] % (Auto) Eos % (Auto) Baso % (Auto) Absolute Neuts (auto) Absolute Lymphs (auto) Nucleated RBC % PT INR APTT Sodium Potassium Chloride Carbon Dioxide Anion Gap BUN Creatinine Estim Creat Clear Calc Est GFR (MDRD) Af Amer Est GFR (MDRD) Non-Af BUN/Creatinine Ratio Glucose Lactic Acid 3.4 H* Calcium Magnesium Total Bilirubin AST ALT Alkaline Phosphatase Total Creatine Kinase Troponin I High Sens Total Protein Albumin Globulin Albumin/Globulin Ratio Urine Color Urine Clarity Urine pH Ur Specific Dickinson Urine Protein Urine Glucose (UA) Urine Ketones Urine Occult Blood Urine Nitrite Urine Bilirubin Urine Urobilinogen Ur Leukocyte Esterase Urine RBC Urine WBC Ur Squamous Epith Cells Urine Bacteria Urine Mucus Urine Opiates Screen NEGATIVE Urine Methadone Screen NEGATIVE Ur Barbiturates Screen NEGATIVE Ur Phencyclidine Scrn NEGATIVE Ur Amphetamines Screen NEGATIVE MDMA (Ecstasy) Screen NEGATIVE U Benzodiazepines Scrn NEGATIVE Urine Cocaine Screen NEGATIVE U Cannabinoids Screen NEGATIVE Ur Drug Screen Comment Acetone Level SMALL H 09/17/22 10:50 WBC RBC Hgb Hct MCV MCH MCHC RDW Std Deviation RDW Coeff of Rabia Plt Count MPV Immature Gran % (Auto) Neut % (Auto) Lymph % (Auto) [place] % (Auto) Eos % (Auto) Baso % (Auto) Absolute Neuts (auto) Absolute Lymphs (auto) Nucleated RBC % PT INR APTT Sodium Potassium Chloride Carbon Dioxide Anion Gap BUN Creatinine Estim Creat Clear Calc Est GFR (MDRD) Af Amer Est GFR (MDRD) Non-Af BUN/Creatinine Ratio Glucose Lactic Acid Calcium Magnesium Total Bilirubin AST ALT Alkaline Phosphatase Total Creatine Kinase Troponin I High Sens Total Protein Albumin Globulin Albumin/Globulin Ratio Urine Color Yellow Urine Clarity Clear Urine pH 6.0 Ur Specific Dickinson 1.015 Urine Protein 30 H Urine Glucose (UA) 1000 H Urine Ketones 150 A* Urine Occult Blood 25 H Urine Nitrite Negative Urine Bilirubin Negative Urine Urobilinogen Normal Ur Leukocyte Esterase Negative Urine RBC 0 SEEN Urine WBC 0 SEEN Ur Squamous Epith Cells 0 SEEN Urine Bacteria 0 SEEN Urine Mucus 0 SEEN Urine Opiates Screen Urine Methadone Screen Ur Barbiturates Screen Ur Phencyclidine Scrn Ur Amphetamines Screen MDMA (Ecstasy) Screen U Benzodiazepines Scrn Urine Cocaine Screen U Cannabinoids Screen Ur Drug Screen Comment Acetone Level Radiography Diagnostic Testing: Clinical Impression(s) from Imaging Studies Brain CT 09/17/22 08:53 IMPRESSION: Normal unenhanced CT scan of the brain. Electronically Signed: Abram Mireles MD at 10:01 EST Reading Location ID and State: [facility] / [place] , Service support , Cervical Spine CT 09/17/22 08:53 IMPRESSION: Normal unenhanced CT examination of the cervical spine. Electronically Signed: Abram Mireles MD at 10:01 EST Reading Location ID and State: [facility] / [place] , Service support , Chest X-Ray 09/17/22 08:53 IMPRESSION: Normal x-ray examination of the chest. Electronically Signed: Abram Mireles MD at 9:27 EST , Chest X-Ray 09/17/22 09:19 IMPRESSION: Normal x-ray examination of the chest. Electronically Signed: Abram Mireles MD at 9:54 EST , Chest/Abdomen/Pelvis CT 09/17/22 09:19 IMPRESSION: Bilateral hydronephrosis and hydroureter without perinephric or periureteral inflammatory stranding. No obstructing stones are noted. Findings could be due to reflux, recently passed stones or nonradiopaque stones. No acute pulmonary process No free intraperitoneal fluid, air, or suspicious adenopathy Electronically Signed: Abram Mireles MD at 10:15 EST , KUB X-Ray 09/17/22 09:19 IMPRESSION: Enteric tube terminating within the expected region of the gastric fundus. Electronically Signed: Concepcion Barroso MD at 10:40 EST , Critical Care Time Critical Care Time: Yes Critical care time (excluding procedures): 30-74 minutes (35), Discussing w/Patient &/or Family/Segmental Paving Supervisor, Discussing w/Consultants, Arranging Admission or Transfer and Performing Direct Patient Care at Bedside Discharge Plan Triage Chief Complaint: Fall ED Provider: Burton Pradhan Dx/Rx/DC Orders Primary Care Provider: Lee Ann Henry
[2022-09-17 09:06] LABS: Absolute Lymphocyte Count 4.05 X10^3/uL (0.83-4.51); Absolute Neutrophil Count 9.9 X10^3/uL (2.0-7.7); Basophil# 0.14 X10^3/uL; Basophil% 0.9 % (0-1); Eosinophil# 0.03 X10^3/uL; Eosinophils% 0.2 % (0-5); Hematocrit 48.2 % (40-54); Hemoglobin 15.8 g/dL (13.0-16.5); Lymphocyte # 4.05 X10^3/ul (0.83-4.51); Mean Corp Hgb Conc 32.8 g/dL (32-36); Mean Corpuscular Hgb 28.6 pg (27.0-32.0); Mean Corpuscular Volume 87.2 fL (80-94); Monocyte# 0.97 X10^3/uL; Monocyte% 6.2 % (0-10); NRBC Flagged by Analyzer 0 % (0-5); Neutrophil # 9.89 X10^3/uL (2.7-7.7); Neutrophil % 63.4 % (47-70); Platelet Count 524 K/mm3 (150-450); RBC Distribution Width CV 15.2 % (11.6-14.6); RBC Distribution Width SD 48.2 fl (35.1-43.9); Red Blood Count 5.53 M/mm3 (4.6-6.2); White Blood Count 15.6 K/mm3 (4.4-11.0)
[2022-09-17] MEDS: Rocuronium Bromide 50 MG/5 ML Vial 40 MG IV (09:13)
[2022-09-17] MEDS: Etomidate 20 MG/10 ML Vial IV (09:13)
--- NOTE | 2022-09-17 09:19 | CT_ITS ---
STUDY: CT CHEST, ABDOMEN T PELVIS WITH CONTRAST REASON FOR EXAM: Male, 21 years old. Altered mental status RADIATION DOSAGE (If Supplied By Facility): CTDIvol = ( 10.10 ) mGy, DLP = ( 675.84 ) mGycm TECHNIQUE: Transaxial imaging was performed following intravenous administration of IV 100mL [id number]-300. Individualized dose optimization techniques were used for this CT. COMPARISON: No relevant priors. FINDINGS: CHEST The lungs are normal. There is no demonstrated pleural abnormality. Normal heart and pericardium. Normal mediastinum. Normal hilar regions. Normal unenhanced pulmonary arteries. Normal aorta arch and descending thoracic aorta. Normal osseous structures. ABDOMEN Normal liver. Normal gallbladder and extrahepatic biliary system. Normal spleen. Normal pancreas. Normal bilateral adrenal glands. There is bilateral hydronephrosis and hydroureter without perinephric or periureteral inflammatory stranding. Normal visualized stomach. Normal small intestine. Normal colon. There is non-visualization of the appendix. Normal abdominal aorta. Normal inferior vena cava. Normal retroperitoneum. Normal abdominal wall. Normal osseous structures. PELVIS Bladder contains a DENTON catheter There is no pelvic fluid. There is no pelvic lymphadenopathy or mass lesion. Normal visualized pelvic arteries. CT/CT Chest, Abd, Pel w/Contrast IMPRESSION: Bilateral hydronephrosis and hydroureter without perinephric or periureteral inflammatory stranding. No obstructing stones are noted. Findings could be due to reflux, recently passed stones or nonradiopaque stones. No acute pulmonary process No free intraperitoneal fluid, air, or suspicious adenopathy Electronically Signed: Abram Mireles MD at 10:15 EST ,
--- NOTE | 2022-09-17 09:19 | RAD_ITS ---
STUDY: X-RAY CHEST REASON FOR EXAM: Male, 21 years old. Respiratory failure TECHNIQUE: Single AP portable view of the chest. COMPARISON: 09/17/2022 FINDINGS: Since the previous study, patient intubated, tip of the ET tube is 3.5 cm above the judi. EKG leads overlie the chest The lungs are clear and expanded. There is no demonstrated pleural abnormality. Normal size heart. Normal mediastinum and rudi. Normal visualized pulmonary arteries. Normal visualized aortic arch and descending thoracic aorta. Normal visualized thoracic spine. Normal visualized ribs, clavicles, and shoulders. There is no demonstrated abnormality of the visualized soft tissue structures of the upper abdomen. RAD/Chest 1 View (Portable) IMPRESSION: Normal x-ray examination of the chest. Electronically Signed: Abram Mireles MD at 9:54 EST ,
--- NOTE | 2022-09-17 09:19 | RAD_ITS ---
STUDY: X-RAY - ABDOMEN/PELVIS REASON FOR EXAM: Male, 21 years old. Oral gastric tube TECHNIQUE: Single AP view of the abdomen / pelvis. COMPARISON: Chest radiograph dated 09/17/2022 FINDINGS: Normal visualized lung bases. There is an enteric tube in place terminating within the expected region of the gastric fundus. There is a nonspecific bowel gas pattern. Normal soft tissue structures. Normal visualized osseous structures. RAD/Abdomen Single View (Portable) IMPRESSION: Enteric tube terminating within the expected region of the gastric fundus. Electronically Signed: Concepcion Barroso MD at 10:40 EST ,
[2022-09-17 09:22] LABS: International Normalized Ratio 1.6; Prothrombin Time (Protime)PT. 18.4 SECONDS (11.7-14.9)
[2022-09-17 09:23] LABS: Partial Thromboplast Time 29.4 Seconds (24.1-36.2)
[2022-09-17] MEDS: 0.9% Normal Saline 1,000 ML 999 ML IV ×3 (09:24→12:37)
[2022-09-17 09:39] LABS: ALB/GLOB Ratio 1.2 RATIO (0.9-2.4); AST(SGOT) 8 U/L (15-37); Alanine Aminotransfer ALT/SGPT 12 U/L (16-61); Albumin, Serum 4.5 g/dL (3.2-5.0); Alkaline Phosphatase 173 U/L (45-117); Anion Gap 30 (5-15); BUN 19 mg/dL (7-18); BUN/Creat Ratio 14.3 RATIO (10-20); CPK Total, Creatine Kinase 50 U/L (39-308); Calcium,Total 9.2 mg/dL (8.5-10.1); Chloride 100 mmol/L (98-107); Creatinine, Serum 1.33 mg/dL (0.70-1.30); EST Glomerular Filtration Rate 72 mL/min (>60); Est Glom Filt Rate - Afr Amer 87 mL/min (>60); Globulin 3.9 g/dL (2.2-4.2); Glucose 644 mg/dL (74-106); Magnesium 2.6 mg/dL (1.6-2.6); Potassium 3.9 mmol/L (3.5-5.1); Protein, Total 8.4 g/dL (6.4-8.2); Sodium Level 133 mmol/L (136-145); Troponin-I HS 6 pg/mL (3.0-78.0)
[2022-09-17 09:40] LABS: Lactic Acid 3.4 mmol/L (0.4-1.9)
[2022-09-17 11:01] LABS: Bacteria 0 SEEN /hpf (None Seen); Mucous, Urine 0 SEEN /hpf (<or=2+); Red Blood Cells-Urine 0 SEEN /hpf (0-5); Squamous Epithelial Cells - UA 0 SEEN /hpf (0-5); White Blood Cells 0 SEEN /hpf (0-5)
[2022-09-17 11:06] LABS: Color, Urine Yellow (Yellow); Glucose, Dipstick 1000 mg/dl (Normal); Leukocyte Esterase-Dipstick Negative /ul (Negative); Nitrite-Dipstick Negative (Negative); Occult Blood-Urine 25 /ul (Negative); Protein-Dipstick 30 mg/dl (Negative); Specific Gravity, Urine 1.015 (1.002-1.030); Urine Bilirubin Dipstick Negative (Negative); Urine Clarity Clear (Clear); Urine Urobilinogen Normal (Normal)
[2022-09-17 11:15] LABS: Amphetamine Urine VISTA NEGATIVE (<1000 ng/mL); Barbiturate Urine VISTA NEGATIVE (< 200 ng/mL); Benzodiazepine Urine VISTA NEGATIVE (< 200 ng/mL); Cocaine Urine VISTA NEGATIVE (< 300 ng/mL); Ecstacy Urine VISTA NEGATIVE (< 500 ng/mL); Methadone Urine VISTA NEGATIVE (< 300 ng/mL); PCP Urine VISTA NEGATIVE (< 25 ng/mL); THC Urine VISTA NEGATIVE (< 50 ng/mL); Vista UDS pH Range 5
[2022-09-17 11:16] LABS: Ketone-Dipstick 150 mg/dl (Negative)
--- NOTE | 2022-09-17 11:31 | HP.PCM.HOS_ITS ---
HPI - General General Date of Admission: 09/17/22 Date of Service: 09/17/22 Chief Complaint: DKA HPI Narrative Mr. Carlton is a 21-year-old male with a history of type 1 diabetes with multiple episodes of DKA, pericardial effusion that grew MSSA and was on oxacillin until the 18 of last month and pericardial window, and DVT on Xarelto who presented to [facility] 09/17/2022 with altered mental status after collapsing at home. He apparently was in his usual health and was getting ready for the day when his mom heard a thud and she found him minimally responsive. When he was brought to the ED he was not protecting his airway and was not appropriately responding to commands so was intubated. Given that he is intubated and sedated unable to obtain history from him so history obtained primarily from his mother at bedside. She denies that he had any recent sick contacts or recent complaints. She reports that he has been taking his insulin and other medications recently though he at times does not take his insulin correctly. He has had multiple episodes of DKA in the past. She does note that he was recently on antibiotics due to MSSA found in a pericardial effusion and they were DC'd at the end of last month and his PICC line was taken out last week. There was some possible diarrhea prior to him collapsing however his mother reports that happens when he eats dairy, unclear if there is a direct association or if there were new symptoms. [facility] Medical History Asthma Diabetes mellitus type 1 Diabetic ketoacidosis associated with type 1 diabetes mellitus femur surgery GERD (gastroesophageal reflux disease) Hypokalemia Kidney disease Lower extremity edema Nausea and vomiting Non-smoker Noncompliance Nonhealing surgical wound Psychosocial problem Severe protein-calorie malnutrition Sinus tachycardia seen on cardiac monitor technician Ulcer of leg, chronic Wound of left lower extremity Home Medications blood sugar diagnostic (OneTouch Verio test strips) #200 ea 09/08/21 [Rx Last Taken Unknown] pen needle, diabetic 32 gauge x 5/32 (BD Ultra-Fine Lorin Pen Needle) #360 ea 09/08/21 [Rx Last Taken Unknown] flash glucose sensor (FreeStyle Niru 14 Day Sensor kit) #2 ea 10/11/21 [Rx Last Taken Unknown] insulin glargine-yfgn 100 unit/mL (3 mL) subcutaneous pen 45 unit subcut QHS DM 07/24/22 [History Last Taken Unknown] insulin lispro 100 unit/mL subcutaneous pen (Humalog KwikPen (U-100) Insulin) 25 unit subcut TIDAC DM 07/24/22 [History Last Taken Unknown] insulin lispro 100 unit/mL subcutaneous pen (Humalog KwikPen (U-100) Insulin) See Protocol subcut ACHS DM 07/24/22 [History Last Taken Unknown] potassium chloride 20 mEq tablet,extended release(part/cryst) (Klor-Con M) 40 meq PO BID supplement 07/24/22 [History Last Taken Unknown] colchicine 0.6 mg tablet 0.6 mg PO BID 09/17/22 [History Last Taken Unknown] rivaroxaban 20 mg tablet (Xarelto) 20 mg PO DAILY 09/17/22 [History Last Taken Unknown] Allergy/AdvReac Type Severity Reaction Status Date / Time Milk Containing Products AdvReac Diarrhea Verified 09/17/22 08:47 Family History Father Polysubstance overdose Patient father young secondary to OD. Mother Iron deficiency anemia Other Asthma CVA (cerebral vascular accident) Diabetes Hypertension Thyroid disorder Surgical History H/O right knee surgery History of surgery on extremity Hx of knee surgery Social History housing: other details: Lives with his grandmother, aunt and mother. Smoking Status: Never smoker alcohol intake: current alcohol intake frequency: a few times a month substance use type: does not use ROS Review of Systems ROS Unobtainable: due to encephalopathy and due to endotracheal tube Vital Signs Vital Signs Vital Signs: 09/17/22 08:48 09/17/22 08:51 09/17/22 08:57 Temperature 96.0 F L Temperature Source Temporal Pulse Rate 98 Respiratory Rate 23 H Respiratory Pattern Tachypnea Blood Pressure 119/71 Blood Pressure Mean 87 Pulse Ox 98 100 100 Oxygen Delivery Method Non-Rebreather Non-Rebreather Non-Rebreather Oxygen Flow Rate (L/min) 15 Fraction of Inspired Oxygen (FIO2) 100 09/17/22 09:16 09/17/22 09:18 09/17/22 09:15 Temperature 92.5 F L Temperature Source Core Pulse Rate 99 Respiratory Rate 13 25 H Respiratory Pattern Normal Blood Pressure 101/64 Blood Pressure Mean 76 Pulse Ox 100 Oxygen Delivery Method Ambu-Bag Oxygen Flow Rate (L/min) Fraction of Inspired Oxygen (FIO2) 55 09/17/22 11:02 09/17/22 11:02 Temperature 91.8 F L Temperature Source Core Pulse Rate 97 97 Respiratory Rate 14 14 Respiratory Pattern Blood Pressure 133/75 H 133/75 H Blood Pressure Mean 94 94 Pulse Ox 100 100 Oxygen Delivery Method Mechanical Ventilator Mechanical Ventilator Oxygen Flow Rate (L/min) Fraction of Inspired Oxygen (FIO2) 30 30 Weight Weight: 65.5 kg Body Mass Index (BMI) 19.0 Physical Exam Const Constitutional Narrative: Intubated and sedated HEENT normocephalic HEENT Narrative: Does have contusion on right side of forehead Eyes Eyes Narrative: Opens eyes to stimulation Neck supple Neck Narrative: ET tube placed Resp Resp Narrative: Mechanically ventilated Cardio regular rate and regular rhythm GI soft to palpation Extremity Extremity Narrative: Moved extremities when stimulated Neuro Neuro Narrative: Intubated and sedated, unable to participate in neuro exam. Woke up to stimulation Psych Psych Narrative: Unable to assess due to intubation and sedation Results Lab / Micro Data Result Diagrams: 09/17/22 08:55 09/17/22 08:55 Labs: Laboratory Results - last 24 hr 09/17/22 08:55: WBC 15.6 H, RBC 5.53, Hgb 15.8, Hct 48.2, MCV 87.2, MCH 28.6, MCHC 32.8, RDW Std Deviation 48.2 H, RDW Coeff of Rabia 15.2 H, Plt Count 524 H, MPV 10.0, Immature Gran % (Auto) 3.300 H, Neut % (Auto) 63.4, Lymph % (Auto) 26.0, [place] % (Auto) 6.2, Eos % (Auto) 0.2, Baso % (Auto) 0.9, Absolute Neuts (auto) 9.9 H, Absolute Lymphs (auto) 4.05, Nucleated RBC % 0 09/17/22 08:55: PT 18.4 H, INR 1.6, APTT 29.4 09/17/22 08:55: Sodium 133 L, Potassium 3.9, Chloride 100, Carbon Dioxide 3.0 L* , Anion Gap 30 H, BUN 19 H, Creatinine 1.33 H, Estim Creat Clear Calc 81.40, Est GFR (MDRD) Af Amer 87, Est GFR (MDRD) Non-Af 72, BUN/Creatinine Ratio 14.3, G lucose 644 H*, Calcium 9.2, Magnesium 2.6, Total Bilirubin 0.70, AST 8 L, ALT 12 L, Alkaline Phosphatase 173 H, Total Creatine Kinase 50, Troponin I High Sens 6, Total Protein 8.4 H, Albumin 4.5, Globulin 3.9, Albumin/Globulin Ratio 1.2 09/17/22 08:55: Acetone Level SMALL H 09/17/22 08:55: Lactic Acid 3.4 H* 09/17/22 10:50: Urine Opiates Screen NEGATIVE, Urine Methadone Screen NEGATIVE, Ur Barbiturates Screen NEGATIVE, Ur Phencyclidine Scrn NEGATIVE, Ur Amphetamines Screen NEGATIVE, MDMA (Ecstasy) Screen NEGATIVE, U Benzodiazepines Scrn NEGATIVE, Urine Cocaine Screen NEGATIVE, U Cannabinoids Screen NEGATIVE, Ur Drug Screen Comment 09/17/22 10:50: Urine Color Yellow, Urine Clarity Clear, Urine pH 6.0, Ur Specific [place] 1.015, Urine Protein 30 H, Urine Glucose (UA) 1000 H, Urine Ketones 150 A*, Urine Occult Blood 25 H, Urine Nitrite Negative, Urine Bilirubin Negative, Urine Urobilinogen Normal, Ur Leukocyte Esterase Negative, Urine RBC 0 SEEN, Urine WBC 0 SEEN, Ur Squamous Epith Cells 0 SEEN, Urine Bacteria 0 SEEN, Urine Mucus 0 SEEN Radiology Impression Brain CT 09/17/22 08:53 IMPRESSION: Normal unenhanced CT scan of the brain. Electronically Signed: Abram Mireles MD at 10:01 EST , Cervical Spine CT 09/17/22 08:53 IMPRESSION: Normal unenhanced CT examination of the cervical spine. Electronically Signed: Abram Mireles MD at 10:01 EST , Chest X-Ray 09/17/22 08:53 IMPRESSION: Normal x-ray examination of the chest. Electronically Signed: Abram Mireles MD at 9:27 EST , Chest X-Ray 09/17/22 09:19 IMPRESSION: Normal x-ray examination of the chest. Electronically Signed: Abram Mireles MD at 9:54 EST , Chest/Abdomen/Pelvis CT 09/17/22 09:19 IMPRESSION: Bilateral hydronephrosis and hydroureter without perinephric or periureteral inflammatory stranding. No obstructing stones are noted. Findings could be due to reflux, recently passed stones or nonradiopaque stones. No acute pulmonary process No free intraperitoneal fluid, air, or suspicious adenopathy Electronically Signed: Abram Mireles MD at 10:15 EST , KUB X-Ray 09/17/22 09:19 IMPRESSION: Enteric tube terminating within the expected region of the gastric fundus. Electronically Signed: Concepcion Barroso MD at 10:40 EST , Assessment & Plan Assessment/Plan (1) DKA (diabetic ketoacidoses): PLAN: Plan #DKA with a history of poorly controlled type 1 diabetes mellitus Possibly due to noncompliance versus underlying infection Positive urine ketones with glucose of 644 Vital signs every hour Insulin drip Fluids BMP every 4 Will obtain ABG DKA protocol Is intubated and sedated as well, admit to ICU, bench assembler battery consulted Given possible diarrhea prior to presentation with unclear other symptomatology we will also get COVID swab Has elevated white count with left shift as well as elevated lactic acid but no sign of infection however unable to maintain history patient due to intubated and sedated Cultures obtained, given 1 dose of Rocephin in the ED Pending progress over the next few hours will decide on empiric antibiotics versus significant improvement just treating DKA #Altered mental status Likely secondary to #1 Was not protecting airway When he fell did hit head however CT negative for intracranial bleed Intubated and sedated, fentanyl for sedation Toxicology screen negative UA does not appear infectious, chest x-ray within normal limits #RADHA Bilateral hydronephrosis and hydroureter without perinephric or periureteral inflammatory stranding and no obstructive stones were noted Unclear etiology Youssef in place Hydrating Urine culture had been sent though UA not suggestive of infectious etiology at this time #Recent pericarditis with pericardial effusion status post window with fluid positive for MSSA Recently on oxacillin Continue colchicine #History of VTA Continue Xarelto Charges/Coding Visit Charges Inpatient E&M: 70066 Init Hosp L2
[2022-09-17] MEDS: Ceftriaxone 1 GM/50 ML BAG IV (11:49)
[2022-09-17 11:56] LABS: Bedside Glucose 464 mg/dL (74-106)
[2022-09-17 11:56] LABS: Allen Test Positive; Base Excess < -30 mmol/L (-2 to +2); Bicarbonate 2.5 mmol/L (22-26); Blood Gas Specimen Type ART; FI02 55; Mode AC; O2 Delivery Device Adult Vent; PEEP 5; PO2 373 mmHG (75-100); RR 14; SITE L Radial; SO2 100 % (95-99); Total Carbon Dioxide < 5 mmol/L; Vt 400; pCO2 20.8 mmHg (35-45); pH 6.68 (7.35-7.45)
--- NOTE | 2022-09-17 12:00 | ED.RN ---
Per Grandmother please call the Pt aunt Sobia Carlton at [phone] to reach family. Grandmother states she will get ahold of us because we do not have any working phones.
[2022-09-17] MEDS: Potassium Chloride 10mEq/100mL 10 MEQ/100 ML IV.SOLN. 100 MEQ IV BOLUS ×7 (12:36→23:49)
[2022-09-17 13:00] LABS: Reflex Lactate? Y
[2022-09-17 13:30] LABS: Bedside Glucose 422 mg/dL (74-106)
[2022-09-17 13:38] LABS: Lactic Acid 1.5 mmol/L (0.4-1.9)
[2022-09-17 13:41] LABS: Anion Gap 23 (5-15); BUN 20 mg/dL (7-18); BUN/Creat Ratio 17.4 RATIO (10-20); Chloride 110 mmol/L (98-107); Creatinine, Serum 1.15 mg/dL (0.70-1.30); EST Glomerular Filtration Rate 85 mL/min (>60); Est Glom Filt Rate - Afr Amer 103 mL/min (>60); Estimated Creatinine Clearance 86.87 ml/min; Glucose 449 mg/dL (74-106); Potassium 3.3 mmol/L (3.5-5.1); Sodium Level 139 mmol/L (136-145)
[2022-09-17] MEDS: 0.9% Normal Saline 1,000 ML 250 ML IV (13:43)
[2022-09-17 14:05] LABS: Bedside Glucose 364 mg/dL (74-106)
[2022-09-17 15:11] LABS: Bedside Glucose 309 mg/dL (74-106)
[2022-09-17] MEDS: TITRATION PARAMETER CHANGE 1 EACH IV (15:56)
[2022-09-17 16:10] LABS: Bedside Glucose 277 mg/dL (74-106)
[2022-09-17 17:09] LABS: Anion Gap 19 (5-15); BUN 20 mg/dL (7-18); BUN/Creat Ratio 17.4 RATIO (10-20); Calcium,Total 7.5 mg/dL (8.5-10.1); Chloride 115 mmol/L (98-107); Creatinine, Serum 1.15 mg/dL (0.70-1.30); EST Glomerular Filtration Rate 85 mL/min (>60); Est Glom Filt Rate - Afr Amer 103 mL/min (>60); Estimated Creatinine Clearance 86.87 ml/min; Glucose 256 mg/dL (74-106); Potassium 3.5 mmol/L (3.5-5.1); Sodium Level 141 mmol/L (136-145)
[2022-09-17] MEDS: Dext 5%-0.45% NS 1,000 ML 150 ML IV (17:29)
[2022-09-17 17:35] LABS: Bedside Glucose 206 mg/dL (74-106)
[2022-09-17] MEDS: Acetaminophen 325 MG Tablet 650 MG PO ×2 (17:36→23:51)
[2022-09-17] MEDS: HEPARIN/D5w 25,000 UNITS 25,000 UNITS/250 ML IV.SOLN. 8 UNITS CONT INF (18:07)
[2022-09-17 18:35] LABS: Bedside Glucose 212 mg/dL (74-106)
[2022-09-17 19:21] LABS: Bedside Glucose 221 mg/dL (74-106)
--- NOTE | 2022-09-17 20:11 | NURSING ---
Per Dr. Kapoor verbal order at bedside, okay to temporarily turn levophed up to 15 mcg/min while working on central line placement d/t BP.
--- NOTE | 2022-09-17 20:14 | PN.HOSP_ITS ---
Hospitalist Note CENTRAL LINE NOTE: Patient with ongoing hypotension despite aggressive IVF administration attempts, per ICU staff note. Given MAP not maintaining >65 on NEP at maximum peripheral dose, discussed with ICU staff and decision to place central line. Attempted to contact family several times to obtain consent however no one was reached successfully therefore between two physicians Dr. Randolph and myself decision to proceed in best interest of patient. Initially attempted R IJ however unsuccessful therefore decision following discussion with Dr. Momin to place L femoral line. The region prepped and draped in standard fashion. US guidance used to obtain access, guidewire threaded without issue, central line catheter placed over guidewire and wire removed w/ cap placed. Lines again drawn and flushed without difficulty. Central line sutured in place. Film ordered. The R IJ region did have bleeding following withdrawal of the central line as it would not draw back, only flush; however, this subsided with pressure and re- evaluation without notable swelling or concerning appearance. Procedures Hospitalists Procedures: 14861 Insert Non-tunnel CV Cath
[2022-09-17 20:43] LABS: Anion Gap 15 (5-15); BUN 18 mg/dL (7-18); BUN/Creat Ratio 14.3 RATIO (10-20); Calcium,Total 7.6 mg/dL (8.5-10.1); Chloride 117 mmol/L (98-107); Creatinine, Serum 1.26 mg/dL (0.70-1.30); EST Glomerular Filtration Rate 76 mL/min (>60); Est Glom Filt Rate - Afr Amer 92 mL/min (>60); Estimated Creatinine Clearance 79.28 ml/min; Glucose 216 mg/dL (74-106); Potassium 3.2 mmol/L (3.5-5.1); Sodium Level 143 mmol/L (136-145)
[2022-09-17] MEDS: Colchicine 0.6 MG TABLET PO (21:04)
[2022-09-17] MEDS: Chlorhexidine 15 ML PO (21:42)
--- NOTE | 2022-09-17 21:48 | PCM.RX.CS ---
Consult Pharmacy has been consulted to manage selected antiobiotic: Vancomycin Type of Consult: New start Labs: Sodium 143 mmol/L (136-145) 09/17/22 20:15 Potassium 3.2 mmol/L (3.5-5.1) L 09/17/22 20:15 Chloride 117 mmol/L (98-107) H 09/17/22 20:15 Carbon Dioxide 11.0 mmol/L (21.0-32.0) L 09/17/22 20:15 Anion Gap 15 (5-15) 09/17/22 20:15 BUN 18 mg/dL (7-18) 09/17/22 20:15 Creatinine 1.26 mg/dL (0.70-1.30) 09/17/22 20:15 Est GFR (MDRD) Af Amer 92 mL/min (>60) 09/17/22 20:15 Est GFR (MDRD) Non-Af 76 mL/min (>60) 09/17/22 20:15 BUN/Creatinine Ratio 14.3 RATIO (10-20) 09/17/22 20:15 Glucose 216 mg/dL (74-106) H 09/17/22 20:15 Microbiology: Microbiology 09/17/22 12:45 Nasal Secretion SARS-CoV-2 & FLU Antigen (Rapid) - Final Weight used for dosin.4 kg Estimated Creatinine Clearance: 87 Goal Trough: 15-20 mcg/mL Pharmacy Plan for Drug Dosing: Pharmacy Service will continue to monitor and adjust dosing as required. Medications Vancomycin HCl (Vancomycin) 1,000 mg in 200 mls @ 200 mls/hr IV Q12H LILLY Discontinued Medications Vancomycin HCl 1,500 mg/ (Sodium Chloride) 530 mls @ 250 mls/hr IV X1 ONE Stop: 09/17/22 20:37 Last Admin: 09/17/22 19:53 Dose: 250 mls/hr Follow-Up Labs: Trough Vancomycin Labs to be done on [date and time ordered]: 09/19 @ 0209
[2022-09-17 22:31] LABS: Bedside Glucose 208 mg/dL (74-106)
[2022-09-17 22:31] LABS: Bedside Glucose 225 mg/dL (74-106)
[2022-09-17 22:31] LABS: Bedside Glucose 255 mg/dL (74-106)
[2022-09-18] VITALS (45 sets, daily range): BP systolic 75–131; BP diastolic 44–85; PULSE 75–100; RESP 12–20; TEMP 38.3–39.5; O2SAT 98–100
[2022-09-18] MEDS: Dext 5%-0.45% NS 1,000 ML 150 ML IV (00:02)
[2022-09-18] MEDS: 0.9% Saline Lock 10 ML Syringe IV ×4 (00:53→21:29)
[2022-09-18] MEDS: Potassium Chloride 10mEq/100mL 10 MEQ/100 ML IV.SOLN. 100 MEQ IV BOLUS ×7 (00:53→08:04)
[2022-09-18 00:58] LABS: Partial Thromboplast Time 32.9 Seconds (24.1-36.2)
[2022-09-18 01:02] LABS: Anion Gap 9 (5-15); BUN 14 mg/dL (7-18); BUN/Creat Ratio 11.3 RATIO (10-20); Calcium,Total 8.3 mg/dL (8.5-10.1); Chloride 123 mmol/L (98-107); Creatinine, Serum 1.24 mg/dL (0.70-1.30); EST Glomerular Filtration Rate 78 mL/min (>60); Est Glom Filt Rate - Afr Amer 94 mL/min (>60); Estimated Creatinine Clearance 80.56 ml/min; Glucose 182 mg/dL (74-106); Potassium 3.3 mmol/L (3.5-5.1); Sodium Level 146 mmol/L (136-145)
[2022-09-18] MEDS: Heparin Injection (Vial) 5,000 UNIT/ML VIAL IV ×2 (01:11→07:29)
[2022-09-18 02:21] LABS: Bedside Glucose 203 mg/dL (74-106)
[2022-09-18 02:21] LABS: Bedside Glucose 167 mg/dL (74-106)
[2022-09-18 02:21] LABS: Bedside Glucose 182 mg/dL (74-106)
[2022-09-18 02:21] LABS: Bedside Glucose 188 mg/dL (74-106)
[2022-09-18] MEDS: CHLORHEXIDINE GLUC 2% CLOTH 1 EACH TOWELETTE TOPICAL (02:36)
[2022-09-18 03:26] LABS: Bedside Glucose 179 mg/dL (74-106)
[2022-09-18 04:23] LABS: Absolute Lymphocyte Count 1.56 X10^3/uL (0.83-4.51); Absolute Neutrophil Count 6.1 X10^3/uL (2.0-7.7); Basophil# 0.03 X10^3/uL; Basophil% 0.3 % (0-1); Eosinophil# 0.09 X10^3/uL; Hematocrit 39.6 % (40-54); Hemoglobin 13.8 g/dL (13.0-16.5); Lymphocyte # 1.56 X10^3/ul (0.83-4.51); Lymphocyte % 17.6 % (19-41); Mean Corp Hgb Conc 34.8 g/dL (32-36); Mean Corpuscular Hgb 28.4 pg (27.0-32.0); Mean Corpuscular Volume 81.5 fL (80-94); Mean Platelet Vol. 9.5 fl (6.2-12.0); Monocyte# 1.04 X10^3/uL; Monocyte% 11.7 % (0-10); NRBC Flagged by Analyzer 0 % (0-5); Neutrophil # 6.09 X10^3/uL (2.7-7.7); Neutrophil % 68.8 % (47-70); Platelet Count 348 K/mm3 (150-450); RBC Distribution Width SD 43.8 fl (35.1-43.9); Red Blood Count 4.86 M/mm3 (4.6-6.2); White Blood Count 8.9 K/mm3 (4.4-11.0)
[2022-09-18 04:31] LABS: Bedside Glucose 139 mg/dL (74-106)
[2022-09-18 04:44] LABS: Phosphorus 0.3 mg/dL (2.5-4.9)
[2022-09-18 04:50] LABS: ALB/GLOB Ratio 1.1 RATIO (0.9-2.4); AST(SGOT) 11 U/L (15-37); Alanine Aminotransfer ALT/SGPT 8 U/L (16-61); Albumin, Serum 3.5 g/dL (3.2-5.0); Alkaline Phosphatase 123 U/L (45-117); Anion Gap 11 (5-15); BUN 11 mg/dL (7-18); BUN/Creat Ratio 9.4 RATIO (10-20); Calcium,Total 8.2 mg/dL (8.5-10.1); Chloride 121 mmol/L (98-107); Creatinine, Serum 1.17 mg/dL (0.70-1.30); EST Glomerular Filtration Rate 83 mL/min (>60); Est Glom Filt Rate - Afr Amer 101 mL/min (>60); Estimated Creatinine Clearance 91.56 ml/min; Globulin 3.2 g/dL (2.2-4.2); Glucose 144 mg/dL (74-106); Magnesium 1.7 mg/dL (1.6-2.6); Potassium 2.9 mmol/L (3.5-5.1); Protein, Total 6.7 g/dL (6.4-8.2); Sodium Level 146 mmol/L (136-145)
[2022-09-18 05:11] LABS: Allen Test Positive; Base Excess -15 mmol/L (-2 to +2); Bicarbonate 12.3 mmol/L (22-26); Blood Gas Specimen Type ART; FI02 21; Mode AC; O2 Delivery Device Adult Vent; PEEP 5; PO2 63 mmHG (75-100); RR 20; SITE L Radial; SO2 88 % (95-99); Total Carbon Dioxide 13 mmol/L; Vt 400; pCO2 29.4 mmHg (35-45); pH 7.23 (7.35-7.45)
[2022-09-18] MEDS: Insulin Glargine-YFGN 100 UNIT/ML Pen 25 UNIT SC (05:52)
[2022-09-18] MEDS: TITRATION PARAMETER CHANGE 1 EACH IV (05:59)
[2022-09-18 06:21] LABS: Bedside Glucose 152 mg/dL (74-106)
[2022-09-18 06:21] LABS: Bedside Glucose 151 mg/dL (74-106)
[2022-09-18] MEDS: Vancomycin IV 1,000 MG/200 ML BAG 200 MG IV ×2 (07:02→19:04)
--- NOTE | 2022-09-18 07:05 | ECHOL_ITS ---
Version 2 Reason For Study: Assess Pericardial Space Procedure This was a limited 2D transthoracic echocardiogram. Technically difficult study. Patient turned towards right side. Exam performed portable in ICU/CCU. Left Ventricle Normal LV size. Left ventricular systolic function is lower limits of normal. The estimated ejection fraction is 53 %. Septal bounce. No regional wall motion abnormalities noted. Right Ventricle Normal RV size. Normal systolic function. Great Vessels Normal aortic root. No collapse of the inferior vena cava. Pericardium/Pleural Small pericardial effusion. MMode/2D Measurements & Calculations LVIDd: 3.4 cm IVSd: 1.3 cm LVIDs: 2.7 cm LVPWd: 1.1 cm FS: 20.7 % ECHO/Echo, Limited Study Interpretation Summary Normal LV size. Left ventricular systolic function is lower limits of normal. The estimated ejection fraction is 53 %. Septal bounce. Small pericardial effusion. Ordering Physician: Tanmay Ferrell Referring Physician: Amee Henry Performed By: Ulises Carrera RCS
[2022-09-18 07:06] LABS: Bedside Glucose 123 mg/dL (74-106)
[2022-09-18] MEDS: Chlorhexidine 15 ML PO ×2 (08:16→21:31)
[2022-09-18] MEDS: Colchicine 0.6 MG TABLET PO ×2 (08:17→21:32)
--- NOTE | 2022-09-18 09:35 | RAD_ITS ---
STUDY: X-RAY CHEST REASON FOR EXAM: Male, 21 years old. ordered -- portable TECHNIQUE: Single AP portable view of the chest. COMPARISON: Comparison is made with prior chest radiograph dated 09/17/2022. FINDINGS: An endotracheal tube is in situ. The tip is at 2.2 cm proximal to the judi. An orogastric tube is seen in the body of the stomach just distal to the gastroesophageal junction. EKG electrodes are seen. The lungs are clear and expanded. There is no demonstrated pleural abnormality. Normal size heart. Normal mediastinum and rudi. Normal visualized pulmonary arteries. Normal visualized aortic arch and descending thoracic aorta. Normal visualized thoracic spine. Normal visualized ribs, clavicles, and shoulders. There is no demonstrated abnormality of the visualized soft tissue structures of the upper abdomen. RAD/Chest 1 View (Portable) IMPRESSION: The support tubes are in good position. Electronically Signed: Willy Callahan MD at 12:36 EST ,
--- NOTE | 2022-09-18 10:03 | EX.PCM.CONCC ---
Assessment & Plan Assessment/Plan (1) DKA (diabetic ketoacidoses): QUALIFIERS: Diabetes mellitus type: type 1 Diabetes mellitus complication detail: with coma Qualified Code(s): E10.11 - Type 1 diabetes mellitus with ketoacidosis with coma (2) Respiratory failure: QUALIFIERS: Chronicity: acute Respiratory failure complication: unspecified whether with hypoxia or hypercapnia Qualified Code(s): J96.00 - Acute respiratory failure, unspecified whether with hypoxia or hypercapnia PLAN: Plan RECOMMENDATIONS: 1. Continue empiric antibiotics pending cultures 2. Obtain limited echo for evaluation of recurrence of pericardial fluid 3. Okay to transition to subcu insulin with tube feeds 4. Advance NG tube prior to tube feeds 5. Spontaneous breathing and awakening trials per protocol 6. ABG prior to extubation 7. Wean fentanyl. Attempt to decrease vent rate to 12 8. Attempt to contact family through social work IMPRESSIONS: 1. Acute DKA with coma in the setting of poorly controlled diabetes mellitus type 1 Patient with coma on presentation requiring emergent intubation. Patient has completed the DKA protocol appropriately. However, patient continues to have a significant metabolic acidosis of unclear etiology. Patient is on empiric antibiotics at this time. Some concern for MSSA infection versus MRSA. Continue broad-spectrum antibiotics for now. Narrow antibiotics pending cultures. CT of the head was not suggestive of a traumatic etiology for altered mental status. Clinical suspicion for Kalma secondary to severe acidosis on presentation. 2. Acute kidney injury Likely secondary to problem #1. Patient does have bilateral hydronephrosis without stranding. Unclear etiology at this time. Patient does not have red blood cells in his urine to suggest passage of a kidney stone. We will continue to monitor with periodic labs. 3. Severe hypokalemia and hypophosphatemia Clinical suspicion for problem #1 and refeeding syndrome as a possible etiology. Patient with poor care previously. We will continue aggressive resuscitation of electrolytes. Anticipate additional requirements after initiation of tube feeds. NG will be advanced given latest chest x-ray. 4. Probable sepsis of unclear etiology Patient has been treated recently with oxacillin secondary to pericardial effusion with MSSA. Unclear if patient has developed MRSA. Pancultures are currently pending. We will continue on broad-spectrum antibiotics. 5. Recent DVT Patient reportedly recently had a DVT. Patient is saturating well on low vent settings. Clinical suspicion for no PE at this time. Patient will remain on anticoagulation, but may need to switch to a heparin drip pending renal function. TIME: 40 minutes critical care time spent addressing patient's acute DKA, metabolic encephalopathy, acute kidney injury, electrolyte disturbances, review of all data and collaboration with care team HPI Consult Data Date of Consult: 09/18/22 HPI Narrative Reason for Consultation: Respiratory failure HPI Narrative: SHIRA STEPHENSON is a 21 M, with past medical history listed below and well-known to me from previous admissions, who presents to [facility] 09/17/2022 secondary to altered mental status. Patient reportedly was cleaning himself earlier in the day and then fell and lost consciousness striking his head. Patient reportedly had not been responsive since that time and has poorly controlled type 1 diabetes mellitus. Patient was admitted to [facility] in July secondary to a pericardial effusion. Patient reportedly had tamponade physiology and required an initial pericardiocentesis with pericardial window. Patient reportedly had pericardial fluid positive for MSSA and was treated with oxacillin. Patient reportedly also had a popliteal DVT and was transitioned to Xarelto. In the ER, patient was afebrile, normotensive and tachypneic at 23 breaths/min. Patient was noted to have a GCS of 3, so was emergently intubated. CT of the brain and cervical spine were unremarkable. INR was noted to be 1.6. Patient was given 2 L of resuscitation secondary to an elevated anion gap of 30 and a glucose of 644. Other laboratory data were significant for white blood cell count of 15.5, hemoglobin of 15.8 and platelets of 524. Creatinine was 1.33 with a slightly elevated alkaline phosphatase of 173. Bicarb was low at 3 with a lactate of 3.4. UA did not show significant bacteremia or red blood cells, but did have ketones. Patient was admitted to the intensive care unit for further evaluation. After admission to the intensive care unit, patient continued to have hypotension. Attempts were made to contact family that were unsuccessful. Attempts at a right IJ were unsuccessful, but patient did have a left femoral line. Patient has subsequently been placed on Levophed. Patient also is receiving Precedex and fentanyl. Patient did have a significant fever overnight of 39.5 ?C. Initially, patient was unresponsive to any stimulus. However, after decrease in fentanyl, patient will open his eyes, but is not able to interact. Unable to obtain review of systems secondary to mentation and intubation. PFSH Medical History Asthma Diabetes mellitus type 1 Diabetic ketoacidosis associated with type 1 diabetes mellitus femur surgery GERD (gastroesophageal reflux disease) Hypokalemia Kidney disease Lower extremity edema Nausea and vomiting Non-smoker Noncompliance Nonhealing surgical wound Psychosocial problem Severe protein-calorie malnutrition Sinus tachycardia seen on quality assurance monitor body Ulcer of leg, chronic Wound of left lower extremity Home Medications blood sugar diagnostic (coconeTouch Verio test strips) #200 ea 09/08/21 [Rx Last Taken Unknown] pen needle, diabetic 32 gauge x 5/32 (BD Ultra-Fine Lorin Pen Needle) #360 ea 09/08/21 [Rx Last Taken Unknown] flash glucose sensor (FreeStyle Niru 14 Day Sensor kit) #2 ea 10/11/21 [Rx Last Taken Unknown] insulin glargine-yfgn 100 unit/mL (3 mL) subcutaneous pen 45 unit subcut QHS DM 07/24/22 [History Last Taken Unknown] insulin lispro 100 unit/mL subcutaneous pen (Humalog KwikPen (U-100) Insulin) 25 unit subcut TIDAC DM 07/24/22 [History Last Taken Unknown] insulin lispro 100 unit/mL subcutaneous pen (Humalog KwikPen (U-100) Insulin) See Protocol subcut ACHS DM 07/24/22 [History Last Taken Unknown] potassium chloride 20 mEq tablet,extended release(part/cryst) (Klor-Con M) 40 meq PO BID supplement 07/24/22 [History Last Taken Unknown] colchicine 0.6 mg tablet 0.6 mg PO BID 09/17/22 [History Last Taken Unknown] rivaroxaban 20 mg tablet (Xarelto) 20 mg PO DAILY 09/17/22 [History Last Taken Unknown] Allergy/AdvReac Type Severity Reaction Status Date / Time Milk Containing Products AdvReac Diarrhea Verified 09/17/22 08:47 Family History Father Polysubstance overdose Patient father young secondary to OD. Mother Iron deficiency anemia Other Asthma CVA (cerebral vascular accident) Diabetes Hypertension Thyroid disorder Surgical History H/O right knee surgery History of surgery on extremity Hx of knee surgery Social History housing: other details: Lives with his grandmother, aunt and mother. Smoking Status: Never smoker alcohol intake: current alcohol intake frequency: a few times a month substance use type: does not use ROS ROS Narrative See HPI Physical Exam Const Constitutional Narrative: Breathing with the ventilator General Appearance: ill appearing, frail and patient mechanically ventilated HEENT normocephalic and head/scalp atraumatic Mouth: oral and palatal mucosa normal Eyes PERRL, EOMs intact bilaterally, conjunctivae normal and no scleral icterus Neck no lymphadenopathy and supple Resp normal respiratory effort, no retractions, no use of accessory muscles and clear to auscultation bilaterally Cardio S1 normal heart sound, S2 normal heart sound, no murmurs, no rub and no gallops GI normal to inspection, nondistended, normoactive bowel sounds, soft to palpation and non-tender Extremity Extremity Narrative: Foot lesions noted. No edema. Skin Skin Narrative: Bilateral inguinal candidiasis. Bruising on the dorsum of his feet. Healing distal toe lesions on the left second and third toes. Chest wound is clean, dry and intact. Neuro Sensorium / Orientation: sedated on vent RASS: -2 Psych Mood & Affect: flat affect Medical Records Data Attestation: I reviewed the patient's medical records Medical Nutrition Assessment Dietitian: Malnutrition Criteria Met Start: 09/17/22 13:46 Freq: Status: Active Protocol: Document 09/18/22 09:57 LOU (Rec: 09/18/22 09:58 [facility] [id number]) Nutrition Malnutrition Evidence of Malnutrition Exists Yes Malnutrition (severe): Acute Illness/Injury Evidenced By Suboptimal Energy Intake ( Severe),Weight Loss (Severe), Physical Changes (Moderate) Clinical Problem Acute Disease or Injury Related Malnutrition Etiology severe related to [facility] w/ inability to consume adequate nutrition to meet est nutritional needs Signs/Symptoms as evidenced by current NPO status, 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 Would start tf at 20 ml/hr and increase by 15 ml every 8-10 hrs as pt tolerates until goal rate of 70 ml/hr achieved. Monitor for s/s of refeeding syndrome. Lab / Micro Data Attestation: I reviewed the patient's lab results. Result Diagrams: 09/18/22 04:06 09/18/22 04:06 Labs: Laboratory Results - last 24 hr 09/17/22 10:50: Urine Opiates Screen NEGATIVE, Urine Methadone Screen NEGATIVE, Ur Barbiturates Screen NEGATIVE, Ur Phencyclidine Scrn NEGATIVE, Ur Amphetamines Screen NEGATIVE, MDMA (Ecstasy) Screen NEGATIVE, U Benzodiazepines Scrn NEGATIVE, Urine Cocaine Screen NEGATIVE, U Cannabinoids Screen NEGATIVE, Ur Drug Screen Comment 09/17/22 10:50: Urine Color Yellow, Urine Clarity Clear, Urine pH 6.0, Ur Specific [place] 1.015, Urine Protein 30 H, Urine Glucose (UA) 1000 H, Urine Ketones 150 A*, Urine Occult Blood 25 H, Urine Nitrite Negative, Urine Bilirubin Negative, Urine Urobilinogen Normal, Ur Leukocyte Esterase Negative, Urine RBC 0 SEEN, Urine WBC 0 SEEN, Ur Squamous Epith Cells 0 SEEN, Urine Bacteria 0 SEEN, Urine Mucus 0 SEEN 09/17/22 11:36: POC Glucose 464 H* 09/17/22 12:38: POC Glucose 422 H 09/17/22 13:10: Sodium 139, Potassium 3.3 L, Chloride 110 H, Carbon Dioxide 6.0 L*, Anion Gap 23 H, BUN 20 H, Creatinine 1.15, Estim Creat Clear Calc 86.87, Est GFR (MDRD) Af Amer 103, Est GFR (MDRD) Non-Af 85, BUN/Creatinine Ratio 17.4, Glucose 449 H, Calcium 8.0 L 09/17/22 13:10: Lactic Acid 1.5 09/17/22 13:38: POC Glucose 364 H 09/17/22 14:47: POC Glucose 309 H 09/17/22 15:50: POC Glucose 277 H 09/17/22 16:40: Sodium 141, Potassium 3.5, Chloride 115 H, Carbon Dioxide 7.0 L*, Anion Gap 19 H, BUN 20 H, Creatinine 1.15, Estim Creat Clear Calc 86.87, Est GFR (MDRD) Af Amer 103, Est GFR (MDRD) Non-Af 85, BUN/Creatinine Ratio 17.4, Glucose 256 H, Calcium 7.5 L 09/17/22 17:09: POC Glucose 206 H 09/17/22 18:14: POC Glucose 212 H 09/17/22 19:00: POC Glucose 221 H 09/17/22 19:59: POC Glucose 225 H 09/17/22 20:15: Sodium 143, Potassium 3.2 L, Chloride 117 H, Carbon Dioxide 11.0 L, Anion Gap 15, BUN 18, Creatinine 1.26, Estim Creat Clear Calc 79.28, Est GFR (MDRD) Af Amer 92, Est GFR (MDRD) Non-Af 76, BUN/Creatinine Ratio 14.3, Glucose 216 H, Calcium 7.6 L 09/17/22 21:06: POC Glucose 255 H 09/17/22 22:12: POC Glucose 208 H 09/17/22 23:05: POC Glucose 203 H 09/17/22 23:59: POC Glucose 182 H 09/18/22 00:45: Sodium 146 H, Potassium 3.3 L, Chloride 123 H, Carbon Dioxide 14.0 L, Anion Gap 9, BUN 14, Creatinine 1.24, Estim Creat Clear Calc 80.56, Est GFR (MDRD) Af Amer 94, Est GFR (MDRD) Non-Af 78, BUN/Creatinine Ratio 11.3, Glucose 182 H, Calcium 8.3 L 09/18/22 00:45: APTT 32.9 09/18/22 00:57: POC Glucose 167 H 09/18/22 02:01: POC Glucose 188 H 09/18/22 03:06: POC Glucose 179 H 09/18/22 04:06: Sodium 146 H, Potassium 2.9 L, Chloride 121 H, Carbon Dioxide 14.0 L, Anion Gap 11, BUN 11, Creatinine 1.17, Estim Creat Clear Calc 91.56, Est GFR (MDRD) Af Amer 101, Est GFR (MDRD) Non-Af 83, BUN/Creatinine Ratio 9.4 L, Glucose 144 H, Calcium 8.2 L, Magnesium 1.7, Total Bilirubin 1.70 H, AST 11 L, ALT 8 L, Alkaline Phosphatase 123 H, Total Protein 6.7, Albumin 3.5, Globulin 3.2, Albumin/Globulin Ratio 1.1 09/18/22 04:06: WBC 8.9, RBC 4.86, Hgb 13.8, Hct 39.6 L, MCV 81.5 D, MCH 28.4, MCHC 34.8 D, RDW Std Deviation 43.8, RDW Coeff of Rabia 15.0 H, Plt Count 348, MPV 9.5, Immature Gran % (Auto) 0.600, Neut % (Auto) 68.8, Lymph % (Auto) 17.6 L, [place] % (Auto) 11.7 H, Eos % (Auto) 1.0, Baso % (Auto) 0.3, Absolute Neuts (auto) 6.1, Absolute Lymphs (auto) 1.56, Nucleated RBC % 0 09/18/22 04:06: Sodium Cancelled, Potassium Cancelled, Chloride Cancelled, Carbon Dioxide Cancelled, Anion Gap Cancelled, BUN Cancelled, Creatinine Cancelled, Estim Creat Clear Calc Cancelled, Est GFR (MDRD) Af Amer Cancelled, Est GFR (MDRD) Non-Af Cancelled, BUN/Creatinine Ratio Cancelled, Glucose Cancelled, Calcium Cancelled 09/18/22 04:06: Phosphorus 0.3 L* 09/18/22 04:08: POC Glucose 139 H 09/18/22 05:07: POC Glucose 152 H 09/18/22 05:57: POC Glucose 151 H 09/18/22 06:46: POC Glucose 123 H 09/18/22 07:00: APTT 54.0 H Micro: Microbiology 09/17/22 14:35 Sputum, Induced/[place] Gram Stain - Final 09/17/22 12:45 Nasal Secretion SARS-CoV-2 & FLU Antigen (Rapid) - Final ABG Data ABG results: ABG 09/17/22 09/18/22 11:06 05:07 Specimen Type ART ART Sample Site L Radial L Radial pH 6.68 L* 7.23 L Bicarbonate Actual 2.5 L 12.3 L Total CO2 < 5 13 Base Excess < -30 L -15 L O2 Saturation 100 H 88 L O2 % 55 21 ABG pCO2 20.8 L 29.4 L ABG pO2 373 H* 63 L Hector Test Positive Positive Respiration Rate 14 20 O2 Delivery Device Adult Vent Adult Vent Vent Mode AC AC Tidal Volume 400 400 POC PEEP 5 5 Crit Call To/Read Back Yes Blood Gas Notified Whom ashwini Attestation: I personally reviewed and interpreted this ABG as follows: (Partially compensated mixed gap and nongap metabolic acidosis with improvement in anion gap acidosis) Radiology Impression Brain CT 09/17/22 08:53 IMPRESSION: Normal unenhanced CT scan of the brain. Electronically Signed: Abram Mireles MD at 10:01 EST , Chest/Abdomen/Pelvis CT 09/17/22 09:19 IMPRESSION: Bilateral hydronephrosis and hydroureter without perinephric or periureteral inflammatory stranding. No obstructing stones are noted. Findings could be due to reflux, recently passed stones or nonradiopaque stones. No acute pulmonary process No free intraperitoneal fluid, air, or suspicious adenopathy Electronically Signed: Abram Mireles MD at 10:15 EST , KUB X-Ray 09/17/22 09:19 IMPRESSION: Enteric tube terminating within the expected region of the gastric fundus. Electronically Signed: Concepcion Barroso MD at 10:40 EST , Charges/Coding Procedures Hospitalists Procedures: 12374 Critial Care 1st Hr
[2022-09-18] MEDS: Acetaminophen 325 MG Tablet 650 MG PO ×2 (10:06→21:34)
[2022-09-18 11:56] LABS: Bedside Glucose 209 mg/dL (74-106)
[2022-09-18] MEDS: Insulin Lispro 100 UNIT/ML INSULN.PEN SC ×2 (12:16→18:02)
[2022-09-18] MEDS: Vital AF 1.2 Cal Liquid 1,000 ML 20 ML GT (13:20)
--- NOTE | 2022-09-18 15:28 | CASEMGMT ---
RN CM assessment deferred at this time as patient is currently intubated. No family at bedside. RN CM will attempt to complete assessment at later time.
--- NOTE | 2022-09-18 17:32 | PN.HOSP_ITS ---
Subjective Subjective Was seen and examined today, he remains sedated and on the ventilator, I talked briefly with critical care about his care. Objective Data Objective Data Vital Signs: Vital Signs Temp Pulse Resp BP Pulse Ox O2 Del Method O2 Flow Rate 102.7 F H 76 20 H 127/85 H 100 Mechanical Ventilator 15 09/18/22 17:00 09/18/22 17:04 09/18/22 17:04 09/18/22 17:00 09/18/22 17:04 09/18/22 17:00 09/17/22 08:51 FiO2 21 09/18/22 17:04 Oxygen Flow Rate (L/min) 15 Oxygen Delivery Method Mechanical Ventilator Weight: 64.818 kg Body Mass Index (BMI) 17.6 Intake & Output: Intake and Output for Last 24 Hours 09/17/22 09/17/22 09/18/22 00:59 23:59 23:59 Intake Total 6033.3166 / 6033.3166 Output Total 6650 / 6650 Balance -616.6834 / -616.6834 Medical Nutrition Assessment Dietitian: Malnutrition Criteria Met Start: 09/17/22 13:46 Freq: Status: Active Protocol: Document 09/18/22 09:57 SLA (Rec: 09/18/22 09:58 SLA [id number]) Nutrition Malnutrition Evidence of Malnutrition Exists Yes Malnutrition (severe): Acute Illness/Injury Evidenced By Suboptimal Energy Intake ( Severe),Weight Loss (Severe), Physical Changes (Moderate) Clinical Problem Acute Disease or Injury Related Malnutrition Etiology severe related to pt on [facility] ventilator w/ inability to consume adequate nutrition to meet est nutritional needs Signs/Symptoms as evidenced by current NPO status, 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 Would start tf at 20 ml/hr and increase by 15 ml every 8-10 hrs as pt tolerates until goal rate of 70 ml/hr achieved. Monitor for s/s of refeeding syndrome. Lab / Micro Data Result Diagrams: 09/18/22 04:06 09/18/22 04:06 Labs: Laboratory Results - last 24 hr 09/17/22 17:09: POC Glucose 206 H 09/17/22 18:14: POC Glucose 212 H 09/17/22 19:00: POC Glucose 221 H 09/17/22 19:59: POC Glucose 225 H 09/17/22 20:15: Sodium 143, Potassium 3.2 L, Chloride 117 H, Carbon Dioxide 11.0 L, Anion Gap 15, BUN 18, Creatinine 1.26, Estim Creat Clear Calc 79.28, Est GFR (MDRD) Af Amer 92, Est GFR (MDRD) Non-Af 76, BUN/Creatinine Ratio 14.3, Glucose 216 H, Calcium 7.6 L 09/17/22 21:06: POC Glucose 255 H 09/17/22 22:12: POC Glucose 208 H 09/17/22 23:05: POC Glucose 203 H 09/17/22 23:59: POC Glucose 182 H 09/18/22 00:45: Sodium 146 H, Potassium 3.3 L, Chloride 123 H, Carbon Dioxide 14.0 L, Anion Gap 9, BUN 14, Creatinine 1.24, Estim Creat Clear Calc 80.56, Est GFR (MDRD) Af Amer 94, Est GFR (MDRD) Non-Af 78, BUN/Creatinine Ratio 11.3, Glucose 182 H, Calcium 8.3 L 09/18/22 00:45: APTT 32.9 09/18/22 00:57: POC Glucose 167 H 09/18/22 02:01: POC Glucose 188 H 09/18/22 03:06: POC Glucose 179 H 09/18/22 04:06: Sodium 146 H, Potassium 2.9 L, Chloride 121 H, Carbon Dioxide 14.0 L, Anion Gap 11, BUN 11, Creatinine 1.17, Estim Creat Clear Calc 91.56, Est GFR (MDRD) Af Amer 101, Est GFR (MDRD) Non-Af 83, BUN/Creatinine Ratio 9.4 L, Glucose 144 H, Calcium 8.2 L, Magnesium 1.7, Total Bilirubin 1.70 H, AST 11 L, ALT 8 L, Alkaline Phosphatase 123 H, Total Protein 6.7, Albumin 3.5, Globulin 3.2, Albumin/Globulin Ratio 1.1 09/18/22 04:06: WBC 8.9, RBC 4.86, Hgb 13.8, Hct 39.6 L, MCV 81.5 D, MCH 28.4, MCHC 34.8 D, RDW Std Deviation 43.8, RDW Coeff of Rabia 15.0 H, Plt Count 348, MPV 9.5, Immature Gran % (Auto) 0.600, Neut % (Auto) 68.8, Lymph % (Auto) 17.6 L , [place] % (Auto) 11.7 H, Eos % (Auto) 1.0, Baso % (Auto) 0.3, Absolute Neuts ( auto) 6.1, Absolute Lymphs (auto) 1.56, Nucleated RBC % 0 09/18/22 04:06: Sodium Cancelled, Potassium Cancelled, Chloride Cancelled, Carbon Dioxide Cancelled, Anion Gap Cancelled, BUN Cancelled, Creatinine Cancelled, Estim Creat Clear Calc Cancelled, Est GFR (MDRD) Af Amer Cancelled, Est GFR (MDRD) Non-Af Cancelled, BUN/Creatinine Ratio Cancelled, Glucose Cancelled, Calcium Cancelled 09/18/22 04:06: Phosphorus 0.3 L* 09/18/22 04:08: POC Glucose 139 H 09/18/22 05:07: POC Glucose 152 H 09/18/22 05:57: POC Glucose 151 H 09/18/22 06:46: POC Glucose 123 H 09/18/22 07:00: APTT 54.0 H 09/18/22 11:35: POC Glucose 209 H 09/18/22 13:27: APTT 58.0 H Micro: Microbiology 09/17/22 14:35 Sputum, Induced/Lukens Gram Stain - Final 09/17/22 14:35 Sputum, Induced/Lukens Respiratory Culture - Preliminary Appears to be normal respiratory joaquina. Further studies to follow. 09/17/22 10:50 Urine, Catheterized Urine Culture - Preliminary Culture exhibits no growth. 09/17/22 12:45 Nasal Secretion SARS-CoV-2 & FLU Antigen (Rapid) - Final ABG Data ABG results: ABG 09/17/22 09/18/22 11:06 05:07 Specimen Type ART ART Sample Site L Radial L Radial pH 6.68 L* 7.23 L Bicarbonate Actual 2.5 L 12.3 L Total CO2 < 5 13 Base Excess < -30 L -15 L O2 Saturation 100 H 88 L O2 % 55 21 ABG pCO2 20.8 L 29.4 L ABG pO2 373 H* 63 L Hector Test Positive Positive Respiration Rate 14 20 O2 Delivery Device Adult Vent Adult Vent Vent Mode AC AC Tidal Volume 400 400 POC PEEP 5 5 Crit Call To/Read Back Yes Blood Gas Notified Whom ashwini Radiography Diagnostic Testing: Radiology Impression Echocardiogram 09/18/22 07:05 Interpretation Summary Normal LV size. Left ventricular systolic function is lower limits of normal. The estimated ejection fraction is 53 %. Septal bounce. Small pericardial effusion. Ordering Physician: Tanmay Ferrell Referring Physician: Amee Henry Performed By: Ulises Carrera RCS Chest X-Ray 09/18/22 09:35 IMPRESSION: The support tubes are in good position. Electronically Signed: Willy Callahan MD at 12:36 EST , Physical Exam Const Constitutional Narrative: Patient is sedated and on the ventilator at this time HEENT normocephalic and head/scalp atraumatic Eyes PERRL, EOMs intact bilaterally and conjunctivae normal Neck no JVD and thyroid normal General: trachea midline Resp normal respiratory effort, no retractions, no use of accessory muscles and clear to auscultation bilaterally Auscultation: Negative for rales, rhonchi or wheezes Cardio regular rate, regular rhythm, S1 normal heart sound, S2 normal heart sound, no murmurs, no rub and no gallops GI normal to inspection, nondistended, normoactive bowel sounds, soft to palpation, non-tender and non-distended Extremity Extremity Narrative: Patient's feet are mildly ecchymotic with evidence of old ecchymotic areas present Skin Skin Narrative: Mild areas of old ecchymosis are noted over the patient's feet on the lateral aspect of the feet General Skin Exam: no breakdown Trauma: no lacerations or abrasions Neuro Neuro Narrative: Patient is sedated and on the ventilator Psych Psych Narrative: Patient is sedated and on the ventilator Assessment & Plan Assessment/Plan (1) DKA (diabetic ketoacidoses): QUALIFIERS: Diabetes mellitus type: type 1 Diabetes mellitus complication detail: with coma Qualified Code(s): E10.11 - Type 1 diabetes mellitus with ketoacidosis with coma PLAN: Plan 1. Acute DKA with coma-patient has completed the DKA protocol, critical care states that the patient will be transitioned to subcu insulin with his tube fee ds. #2 acute kidney injury secondary to acute DKA-labs will be monitored, patient had hydronephrosis on his initial CAT scan, I discussed this with radiology and they felt that the hydronephrosis could have come from urinary retention, due to the fact the patient now has a Youssef catheter, this would be relieved. Scanning will be repeated if necessary at this time, patient's kidney functions will be monitored #3 metabolic acidosis-possibly secondary to presumed sepsis-site unknown-patient remains on broad-spectrum antibiotics at this time, labs will be monitored #4 small pericardial effusion-patient had an echocardiogram performed today which showed a small pericardial effusion, patient had a recent pericardial effusion with tamponade physiology and he underwent a pericardiocentesis and a pericardial window was performed. Patient's fluid culture was positive for methicillin sensitive staph aureus #5 popliteal vein DVT-patient is currently on heparin #6 hypokalemia-supplemental potassium was given to the patient, labs will be monitored #7 hypophosphatemia-phosphorus replacement was administered, labs will be monitored Charges/Coding Visit Charges Inpatient E&M: 83453 Subs Hosp L2
[2022-09-18] MEDS: HEPARIN/D5w 25,000 UNITS 25,000 UNITS/250 ML IV.SOLN. 11 UNITS CONT INF (18:05)
[2022-09-18 18:20] LABS: Bedside Glucose 248 mg/dL (74-106)
--- NOTE | 2022-09-18 18:22 | NURSING ---
This RN attempted to call Pt's Aunt Sobia. Left voicemail message for her to contact the hospital.
[2022-09-18 21:59] LABS: Partial Thromboplast Time 72.6 Seconds (24.1-36.2)
[2022-09-19] VITALS (40 sets, daily range): BP systolic 76–124; BP diastolic 53–101; PULSE 81–153; RESP 11–25; TEMP 37.2–39.6; O2SAT 96–100
[2022-09-19 01:06] LABS: Bedside Glucose 261 mg/dL (74-106)
[2022-09-19] MEDS: Insulin Lispro 100 UNIT/ML INSULN.PEN SC ×5 (01:27→21:00)
[2022-09-19 04:03] LABS: Absolute Lymphocyte Count 2.08 X10^3/uL (0.83-4.51); Absolute Neutrophil Count 5.3 X10^3/uL (2.0-7.7); Basophil# 0.11 X10^3/uL; Basophil% 1.3 % (0-1); Eosinophil# 0.08 X10^3/uL; Eosinophils% 0.9 % (0-5); Hematocrit 37.1 % (40-54); Hemoglobin 12.8 g/dL (13.0-16.5); Lymphocyte # 2.08 X10^3/ul (0.83-4.51); Lymphocyte % 24.5 % (19-41); Mean Corp Hgb Conc 34.5 g/dL (32-36); Mean Corpuscular Hgb 28.1 pg (27.0-32.0); Mean Corpuscular Volume 81.5 fL (80-94); Mean Platelet Vol. 9.6 fl (6.2-12.0); Monocyte# 0.84 X10^3/uL; Monocyte% 9.9 % (0-10); NRBC Flagged by Analyzer 0 % (0-5); Neutrophil # 5.32 X10^3/uL (2.7-7.7); Neutrophil % 62.8 % (47-70); Platelet Count 259 K/mm3 (150-450); RBC Distribution Width CV 15.4 % (11.6-14.6); RBC Distribution Width SD 45.3 fl (35.1-43.9); Red Blood Count 4.55 M/mm3 (4.6-6.2); White Blood Count 8.5 K/mm3 (4.4-11.0)
[2022-09-19 04:32] LABS: Partial Thromboplast Time 67.8 Seconds (24.1-36.2)
[2022-09-19] MEDS: CHLORHEXIDINE GLUC 2% CLOTH 1 EACH TOWELETTE TOPICAL (04:35)
[2022-09-19] MEDS: 0.9% Saline Lock 10 ML Syringe IV ×2 (04:35→16:43)
[2022-09-19 04:37] LABS: Anion Gap 10 (5-15); BUN 11 mg/dL (7-18); BUN/Creat Ratio 10.9 RATIO (10-20); Calcium,Total 7.9 mg/dL (8.5-10.1); Chloride 114 mmol/L (98-107); Creatinine, Serum 1.01 mg/dL (0.70-1.30); EST Glomerular Filtration Rate 98 mL/min (>60); Est Glom Filt Rate - Afr Amer 119 mL/min (>60); Estimated Creatinine Clearance 106.07 ml/min; Glucose 329 mg/dL (74-106); Magnesium 1.8 mg/dL (1.6-2.6); Phosphorus 1.5 mg/dL (2.5-4.9); Potassium 2.5 mmol/L (3.5-5.1); Sodium Level 140 mmol/L (136-145)
[2022-09-19] MEDS: Potassium Chloride 20mEq/100mL 20 MEQ/100 ML IV.SOLN. 100 MEQ IV BOLUS ×2 (05:27→06:28)
[2022-09-19] MEDS: Acetaminophen 325 MG Tablet 650 MG PO ×2 (05:27→21:00)
[2022-09-19] MEDS: Potassium Chloride Oral Soln 20 MEQ/15 ML UDC 40 MEQ PO (05:27)
--- NOTE | 2022-09-19 06:20 | NURSING ---
Pt switched over to breathing trial per RT. Pt noted on camera to be pulling at tube, vent alarming. This RN went into room just as pt was pulling out his ET tube. Dr. Ferrell at bedside, 3 L nasal cannula applied. Pt doing well at this time.
[2022-09-19 07:15] LABS: Bedside Glucose 365 mg/dL (74-106)
--- NOTE | 2022-09-19 07:19 | PCM.PN.INT ---
Assessment & Plan Assessment/Plan (1) DKA (diabetic ketoacidoses): QUALIFIERS: Diabetes mellitus type: type 1 Diabetes mellitus complication detail: with coma Qualified Code(s): E10.11 - Type 1 diabetes mellitus with ketoacidosis with coma (2) Respiratory failure: QUALIFIERS: Chronicity: acute Respiratory failure complication: unspecified whether with hypoxia or hypercapnia Qualified Code(s): J96.00 - Acute respiratory failure, unspecified whether with hypoxia or hypercapnia PLAN: Plan RECOMMENDATIONS: 1. Continue empiric antibiotics pending cultures 2. Monitor on nasal cannula 3. Potentially initiate tube feeds through NG 4. Continue sliding scale. Increase basal insulin 5. Wean Levophed as tolerated 6. Monitor fever curve off of Precedex 7. Continue aggressive electrolyte repletion 8. Attempt to contact family through social work IMPRESSIONS: 1. Acute DKA with coma in the setting of poorly controlled diabetes mellitus type 1 Patient with coma on presentation requiring emergent intubation. Patient has completed the DKA protocol appropriately. However, patient continues to have a significant metabolic acidosis of unclear etiology. Patient is on empiric antibiotics at this time with clinical improvement. Some concern for MSSA infection versus MRSA. Continue broad-spectrum antibiotics for now. Narrow antibiotics pending cultures. CT of the head was not suggestive of a traumatic etiology for altered mental status. Clinical suspicion for Kalma secondary to severe acidosis on presentation. 2. Acute kidney injury Improving. Likely secondary to problem #1. Patient does have bilateral hydronephrosis without stranding. Unclear etiology at this time. Patient does not have red blood cells in his urine to suggest passage of a kidney stone. We will continue to monitor with periodic labs. Patient did recently have prolonged antibiotics secondary to MSSA pericarditis 3. Severe hypokalemia and hypophosphatemia Clinical suspicion for problem #1 and refeeding syndrome as a possible etiology. Patient with poor care previously. We will continue aggressive resuscitation of electrolytes. If unable to pass a bedside swallow, will initiate tube feeds by NG 4. Probable sepsis of unclear etiology Patient has been treated recently with oxacillin secondary to pericardial effusion with MSSA. Unclear if patient has developed MRSA. Pancultures are currently pending. We will continue on broad-spectrum antibiotics. 5. Recent DVT Patient reportedly recently had a DVT. Patient is saturating well on low vent settings. Clinical suspicion for no PE at this time. Patient will remain on anticoagulation, but may need to switch to a heparin drip pending renal function. TIME: 35 minutes critical care time spent addressing patient's acute DKA, metabolic encephalopathy, acute kidney injury, electrolyte disturbances, review of all data and collaboration with care team Subjective Subjective Patient has had persistent fevers since intubation. This has not been responsive to Tylenol. This morning, patient had a spontaneous awakening trial and tolerated well. After my evaluation, patient was placed on a spontaneous breathing trial. At approximately 620, I was called to the room as patient had self extubated. Patient appeared to be relatively comfortable, so was initiated on nasal cannula. Patient has no recollection of events leading up to his admission through his hospitalization. Objective Data Objective Data Vital Signs: Vital Signs Temp Pulse Resp BP Pulse Ox O2 Del Method O2 Flow Rate 39.6 C H 96 12 98/66 100 Nasal Cannula 3 09/19/22 06:00 09/19/22 06:00 09/19/22 06:00 09/19/22 06:00 09/19/22 06:00 09/19/22 06:20 09/19/22 06:20 FiO2 21 09/19/22 06:00 Oxygen Flow Rate (L/min) 3 Oxygen Delivery Method Nasal Cannula Weight: 62.278 kg Body Mass Index (BMI) 17.6 Intake & Output: Intake and Output for Last 24 Hours 09/17/22 09/18/22 09/19/22 23:59 23:59 23:59 Intake Total 7071.9166 / 7127.4166 961.39 / 961.39 Output Total 7500 / 7500 450 / 450 Balance -428.0834 / -372.5834 511.39 / 511.39 Medical Nutrition Assessment Dietitian: Malnutrition Criteria Met Start: 09/17/22 13:46 Freq: Status: Active Protocol: Document 09/18/22 09:57 LOU (Rec: 09/18/22 09:58 LOU [id number]) Nutrition Malnutrition Evidence of Malnutrition Exists Yes Malnutrition (severe): Acute Illness/Injury Evidenced By Suboptimal Energy Intake ( Severe),Weight Loss (Severe), Physical Changes (Moderate) Clinical Problem Acute Disease or Injury Related Malnutrition Etiology severe [facility]/ inability to consume adequate nutrition to meet est nutritional needs Signs/Symptoms as evidenced by current NPO status, 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 Would start tf at 20 ml/hr and increase by 15 ml every 8-10 hrs as pt tolerates until goal rate of 70 ml/hr achieved. Monitor for s/s of refeeding syndrome. Lab / Micro Data Attestation: I reviewed the patient's lab results. Result Diagrams: 09/19/22 03:51 09/19/22 03:51 Labs: Laboratory Results - last 24 hr 09/18/22 07:00: APTT 54.0 H 09/18/22 11:35: POC Glucose 209 H 09/18/22 13:27: APTT 58.0 H 09/18/22 18:02: POC Glucose 248 H 09/18/22 21:30: APTT 72.6 H 09/19/22 00:45: POC Glucose 261 H 09/19/22 03:51: APTT 67.8 H 09/19/22 03:51: WBC 8.5, RBC 4.55 L, Hgb 12.8 L, Hct 37.1 L, MCV 81.5, MCH 28.1, MCHC 34.5, RDW Std Deviation 45.3 H, RDW Coeff of Rabia 15.4 H, Plt Count 259, MPV 9.6, Immature Gran % (Auto) 0.600, Neut % (Auto) 62.8, Lymph % (Auto) 24.5, [place] % (Auto) 9.9, Eos % (Auto) 0.9, Baso % (Auto) 1.3 H, Absolute Neuts (auto) 5.3, Absolute Lymphs (auto) 2.08, Nucleated RBC % 0 09/19/22 03:51: Sodium 140, Potassium 2.5 L*, Chloride 114 H, Carbon Dioxide 16.0 L, Anion Gap 10, BUN 11, Creatinine 1.01, Estim Creat Clear Calc 106.07, Est GFR (MDRD) Af Amer 119, Est GFR (MDRD) Non-Af 98, BUN/Creatinine Ratio 10.9, Glucose 329 H, Calcium 7.9 L, Phosphorus 1.5 L, Magnesium 1.8 09/19/22 06:55: POC Glucose 365 H Micro: Microbiology 09/17/22 14:35 Sputum, Induced/Lukens Gram Stain - Final 09/17/22 14:35 Sputum, Induced/Lukens Respiratory Culture - Preliminary Appears to be normal respiratory joaquina. Further studies to follow. 09/17/22 10:50 Urine, Catheterized Urine Culture - Preliminary Culture exhibits no growth. 09/17/22 12:45 Nasal Secretion SARS-CoV-2 & FLU Antigen (Rapid) - Final Radiography Diagnostic Testing: Radiology Impression Echocardiogram 09/18/22 07:05 Interpretation Summary Normal LV size. Left ventricular systolic function is lower limits of normal. The estimated ejection fraction is 53 %. Septal bounce. Small pericardial effusion. Ordering Physician: Tanmay Ferrell Referring Physician: Amee Henry Performed By: Ulises Carrera RCS Chest X-Ray 09/18/22 09:35 IMPRESSION: The support tubes are in good position. Electronically Signed: Willy Callahan MD at 12:36 EST , Physical Exam Const Constitutional Narrative: Spontaneous respirations noted on initial evaluation for the day. Subsequently patient self extubated. No stridor noted. General Appearance: ill appearing, frail and patient mechanically ventilated HEENT normocephalic and head/scalp atraumatic Eyes PERRL, EOMs intact bilaterally, conjunctivae normal and no scleral icterus Eyes Narrative: Some scleral injection noted. Neck no lymphadenopathy and supple Resp normal respiratory effort, no retractions, no use of accessory muscles and clear to auscultation bilaterally Cardio regular rate, regular rhythm, S1 normal heart sound, S2 normal heart sound, no murmurs, no rub and no gallops GI normal to inspection, nondistended, normoactive bowel sounds, soft to palpation and non-tender Extremity Extremity Narrative: Foot lesions noted. No edema. Skin Skin Narrative: Bilateral inguinal candidiasis. Bruising on the dorsum of his feet. Healing distal toe lesions on the left second and third toes. Chest wound is clean, dry and intact. Neuro moves all extremities and no focal motor deficits Psych Activity / Motor Behavior: restless Mood & Affect: flat affect Charges/Coding Procedures Hospitalists Procedures: 22391 Critial Care 1st Hr
[2022-09-19 09:14] LABS: Vancomycin, Trough Level 9.8 ug/mL (5.0-15.0)
[2022-09-19] MEDS: Vancomycin IV 1,000 MG/200 ML BAG 200 MG IV (09:49)
[2022-09-19] MEDS: Insulin Glargine-YFGN 100 UNIT/ML Pen 25 UNIT SC ×2 (10:52→21:00)
[2022-09-19] MEDS: Colchicine 0.6 MG TABLET PO ×2 (10:53→21:00)
--- NOTE | 2022-09-19 11:30 | CASEMGMT ---
VERONA FONTANEZ Face to Face with patient for initial transition planning/care coordination assessment. VERONA FONTANEZ introduced self and role at [facility]. Patient sitting in chair, alert and oriented, grandmother and mother at bedside. Patient willing to participate in assessment and is able to answer all questions appropriately. Care providers, pharmacy, and demographics verified. Patient wishes to discharge home, denies need for home health at this time. Patient states he has no further needs or concerns at this time. CM to follow for discharge planning needs that may arise. PCP: None. Was to establish with [facility] but had to cancel appt due to no transportation. Specialists: none Preferred [facility]acy: [facility] Insurance: [employer] Pres[employer] Benefit: yes Living Will/HPOA: none LNOK: mother, grandmother Living Arrangements: Patient lives with grandmother and mother with other family members in a 2 story home. Patient states in basement with grandmother. 12 steps for patient with railing. Patient states he is independent and able to ambulate stairs. Transportation: none, grandmother was providing rides but does not currently have vehicle. VERONA FONTANEZ discussed transportation to appt with [employer], grandmother voiced understanding. Also discuss hospital van when available to provide transport to [facility] services. DME/HHC: Patient states he has cane and walker at home. Patient has glucometer with supplies and states he has been checking BS 3 times daily. Patient states he has insulin and prescriptions. VERONA FONTANEZ educated patient, grandmother, and mother of patient establishing and going to PCP appts for follow-up care. VERONA FONTANEZ explained benefits of [place] [facility] as they are able to utilize [facility] Van for appts if patient can not find transportation. VERONA FONTANEZ also educated patient and family regarding transportation services through [employer] insurance and to call for transport prior to appt. Grandmother voiced understanding. Patient and grandmother prefer [facility] for PCP. CM will assist patient in scheduling follow-up appt to establish with PCP at [facility]. CM will also arrange for transportation to appt with [employer] insurance when schedule. CM to schedule appt closer to when patient is discharging to know follow-up care needed at discharge. Grandmother states she can assist with wound care. Disposition Plan: Patient to discharge home with family support and follow-up plans in place. Joana MONTEZ, RN, CM
[2022-09-19] MEDS: HEPARIN/D5w 25,000 UNITS 25,000 UNITS/250 ML IV.SOLN. 11 UNITS CONT INF (16:44)
[2022-09-19 16:55] LABS: Bedside Glucose 340 mg/dL (74-106)
[2022-09-19 17:21] LABS: Bedside Glucose 341 mg/dL (74-106)
--- NOTE | 2022-09-19 18:11 | PCM.PN.HOSP ---
Subjective Subjective Patient was seen and examined today, he was extubated early this morning (patient self extubated), I talked briefly with pulmonary medicine about his care, pulmonary medicine was in agreement with stopping the patient's vancomycin. Patient remains on Zosyn at this time. Objective Data Objective Data Vital Signs: Vital Signs Temp Pulse Resp BP Pulse Ox O2 Del Method O2 Flow Rate 99.9 F H 120 H 18 112/83 H 100 Room Air 3 09/19/22 13:00 09/19/22 16:00 09/19/22 13:00 09/19/22 13:00 09/19/22 13:00 09/19/22 16:00 09/19/22 08:00 FiO2 21 09/19/22 06:00 Oxygen Flow Rate (L/min) 3 Oxygen Delivery Method Room Air Weight: 62.278 kg Body Mass Index (BMI) 17.6 Intake & Output: Intake and Output for Last 24 Hours 09/17/22 09/18/22 09/19/22 23:59 23:59 23:59 Intake Total 7071.9166 / 7127.4166 2277.6933 / 2277.6933 Output Total 7500 / 7500 1560 / 1560 Balance -428.0834 / -372.5834 717.6933 / 717.6933 Medical Nutrition Assessment Dietitian: Malnutrition Criteria Met Start: 09/17/22 13:46 Freq: Status: Active Protocol: Document 09/19/22 11:53 LO (Rec: 09/19/22 11:54 [id number]) Nutrition Malnutrition Evidence of Malnutrition Exists Yes Malnutrition (moderate): Chronic Evidenced By Weight Loss (Severe),Physical Changes (Moderate) Clinical Problem Chronic Disease or Condition Related Malnutrition Etiology moderate related to poorly controlled DM1 Signs/Symptoms as evidenced by 15.5lbs (10.1% ) weight loss in 2 months and fat/muscle wasting to orbital, clavicle, acromion, temporal areas Status Active Problem Acute Disease or Injury Related Malnutrition Etiology severe related to pt on [facility] ventilator w/ inability to consume adequate nutrition to meet est nutritional needs Signs/Symptoms as evidenced by current NPO status, 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 RD will change kcals to 2000 CCD to manage blood glucose levels. Will assess need for ONS at follow-up base on PO intakes. Lab / Micro Data Result Diagrams: 09/21/22 06:50 09/21/22 13:01 Labs: Laboratory Results - last 24 hr 09/18/22 18:02: POC Glucose 248 H 09/18/22 21:30: APTT 72.6 H 09/19/22 00:45: POC Glucose 261 H 09/19/22 03:51: APTT 67.8 H 09/19/22 03:51: WBC 8.5, RBC 4.55 L, Hgb 12.8 L, Hct 37.1 L, MCV 81.5, MCH 28.1, MCHC 34.5, RDW Std Deviation 45.3 H, RDW Coeff of Rabia 15.4 H, Plt Count 259, MPV 9.6, Immature Gran % (Auto) 0.600, Neut % (Auto) 62.8, Lymph % (Auto) 24.5, Beauregard % (Auto) 9.9, Eos % (Auto) 0.9, Baso % (Auto) 1.3 H, Absolute Neuts (auto) 5.3, Absolute Lymphs (auto) 2.08, Nucleated RBC % 0 09/19/22 03:51: Sodium 140, Potassium 2.5 L*, Chloride 114 H, Carbon Dioxide 16.0 L, Anion Gap 10, BUN 11, Creatinine 1.01, Estim Creat Clear Calc 106.07, Est GFR (MDRD) Af Amer 119, Est GFR (MDRD) Non-Af 98, BUN/Creatinine Ratio 10.9, Glucose 329 H, Calcium 7.9 L, Phosphorus 1.5 L, Magnesium 1.8 09/19/22 06:55: POC Glucose 365 H 09/19/22 08:00: Vancomycin Trough 9.8 09/19/22 10:51: POC Glucose 340 H 09/19/22 16:41: POC Glucose 341 H Micro: Microbiology 09/17/22 10:50 Blood Culture (Wb) - Right Forearm Blood Culture - Preliminary No growth in 48 hours. 09/17/22 08:55 Blood Culture (Wb) - Anticubital Left Blood Culture - Preliminary No growth in 48 hours. 09/17/22 14:35 Sputum, Induced/Lukens Gram Stain - Final 09/17/22 14:35 Sputum, Induced/Lukens Respiratory Culture - Final Mixed normal respiratory joaquina. No Streptococcus pneumoniae, beta-hemolytic Streptococcus or Staphylococcus aureus isolated. 09/17/22 10:50 Urine, Catheterized Urine Culture - Final Culture exhibits no growth. 09/17/22 12:45 Nasal Secretion SARS-CoV-2 & FLU Antigen (Rapid) - Final Physical Exam Narrative Patient isHEENT normocephalic and head/scalp atraumatic Eyes PERRL, EOMs intact bilaterally and conjunctivae normal Neck no JVD and thyroid normal General: trachea midline Resp normal respiratory effort, no retractions, no use of accessory muscles and clear to auscultation bilaterally Auscultation: Negative for rales, rhonchi or wheezes Cardio regular rate, regular rhythm, S1 normal heart sound, S2 normal heart sound, no murmurs, no rub and no gallops GI normal to inspection, nondistended, normoactive bowel sounds, soft to palpation, non-tender and non-distended Extremity Extremity Narrative: Patient's feet are mildly ecchymotic with evidence of old ecchymotic areas present Skin Skin Narrative: Mild areas of old ecchymosis are noted over the patient's feet on the lateral aspect of the feet General Skin Exam: no breakdown Trauma: no lacerations or abrasions Neuro Neuro Narrative: Patient is alert and is oriented as to person and place Psych Psych Narrative: Patient alert and answers apparently Assessment & Plan Assessment/Plan (1) DKA (diabetic ketoacidoses): QUALIFIERS: Diabetes mellitus complication detail: with coma Diabetes mellitus type: type 1 Qualified Code(s): E10.11 - Type 1 diabetes mellitus with ketoacidosis with coma PLAN: Plan 1. Acute DKA with coma-secondary to poorly controlled type 1 diabetes due to noncompliance-patient is currently on nasal cannula oxygen and appears stable, blood sugars are controlled with subcu insulin #2 acute kidney injury-patient had bilateral hydronephrosis on his CT scan, I talked with radiology about this and they stated that the hydronephrosis could have been from bladder outlet obstruction that is currently resolved. Patient's renal functions will be monitored #3 hypokalemia and hypophosphatemia-potassium and phosphate supplementation will be given to the patient #4 subacute DVT-patient is currently on a heparin drip #5 possible sepsis-unclear etiology, patient is on broad-spectrum antibiotics for now Charges/Coding Visit Charges Inpatient E&M: 73929 Subs Hosp L2
[2022-09-19 21:30] LABS: Bedside Glucose 352 mg/dL (74-106)
[2022-09-20] VITALS (20 sets, daily range): BP systolic 87–114; BP diastolic 51–75; PULSE 72–144; RESP 12–25; TEMP 36.4–37.9; O2SAT 94–100
[2022-09-20 04:21] LABS: Absolute Lymphocyte Count 1.45 X10^3/uL (0.83-4.51); Absolute Neutrophil Count 3.6 X10^3/uL (2.0-7.7); Basophil# 0.02 X10^3/uL; Basophil% 0.3 % (0-1); Eosinophil# 0.15 X10^3/uL; Eosinophils% 2.6 % (0-5); Hematocrit 29.5 % (40-54); Hemoglobin 10.2 g/dL (13.0-16.5); Lymphocyte # 1.45 X10^3/ul (0.83-4.51); Lymphocyte % 25.2 % (19-41); Mean Corp Hgb Conc 34.6 g/dL (32-36); Mean Corpuscular Hgb 28.1 pg (27.0-32.0); Mean Corpuscular Volume 81.3 fL (80-94); Mean Platelet Vol. 9.2 fl (6.2-12.0); Monocyte# 0.52 X10^3/uL; NRBC Flagged by Analyzer 0 % (0-5); Neutrophil # 3.58 X10^3/uL (2.7-7.7); Neutrophil % 62.4 % (47-70); Platelet Count 160 K/mm3 (150-450); RBC Distribution Width SD 43.8 fl (35.1-43.9); Red Blood Count 3.63 M/mm3 (4.6-6.2); White Blood Count 5.8 K/mm3 (4.4-11.0)
[2022-09-20 04:45] LABS: Anion Gap 10 (5-15); BUN 11 mg/dL (7-18); BUN/Creat Ratio 13.1 RATIO (10-20); Calcium,Total 7.9 mg/dL (8.5-10.1); Chloride 107 mmol/L (98-107); Creatinine, Serum 0.84 mg/dL (0.70-1.30); EST Glomerular Filtration Rate 122 mL/min (>60); Est Glom Filt Rate - Afr Amer 147 mL/min (>60); Estimated Creatinine Clearance 122.54 ml/min; Glucose 272 mg/dL (74-106); Magnesium 1.5 mg/dL (1.6-2.6); Phosphorus 1.8 mg/dL (2.5-4.9); Potassium 2.3 mmol/L (3.5-5.1); Sodium Level 136 mmol/L (136-145)
[2022-09-20 04:52] LABS: Partial Thromboplast Time 37.3 Seconds (24.1-36.2)
[2022-09-20] MEDS: Heparin Injection (Vial) 5,000 UNIT/ML VIAL IV (05:11)
[2022-09-20] MEDS: 0.9% Saline Lock 10 ML Syringe IV ×3 (05:12→09:29)
[2022-09-20] MEDS: Potassium Chloride Oral Tablet 20 MEQ 40 MEQ PO ×2 (06:35→16:54)
--- NOTE | 2022-09-20 07:07 | PN.CC_ITS ---
Assessment & Plan Assessment/Plan (1) DKA (diabetic ketoacidoses): QUALIFIERS: Diabetes mellitus type: type 1 Diabetes mellitus complication detail: with coma Qualified Code(s): E10.11 - Type 1 diabetes mellitus with ketoacidosis with coma (2) Respiratory failure: QUALIFIERS: Chronicity: acute Respiratory failure complication: unspecified whether with hypoxia or hypercapnia Qualified Code(s): J96.00 - Acute respiratory failure, unspecified whether with hypoxia or hypercapnia PLAN: Plan RECOMMENDATIONS: 1. Complete 5 days of empiric antibiotics 2. Walking oximetry prior to discharge 3. Aggressive electrolyte repletion 4. Continue sliding scale. Increase basal insulin 5. Recheck electrolytes this afternoon 6. Okay to leave the intensive care unit if potassium greater than 3 on recheck 7. Hemodynamically stable on room air. Will sign off from a critical care perspective IMPRESSIONS: 1. Acute DKA with coma in the setting of poorly controlled diabetes mellitus type 1 Patient with coma on presentation requiring emergent intubation. Patient has completed the DKA protocol appropriately. Patient is on empiric antibiotics at this time with clinical improvement. Some concern for MSSA infection versus MRSA. Cultures have not shown any resistant organisms. CT of the head was not suggestive of a traumatic etiology for altered mental status. Clinical suspicion for hypokalemia secondary to severe acidosis on presentation. 2. Acute kidney injury Improving. Likely secondary to problem #1. Patient does have bilateral hydronephrosis without stranding. Unclear etiology at this time. Patient does not have red blood cells in his urine to suggest passage of a kidney stone. We will continue to monitor with periodic labs. Patient did recently have prolonged antibiotics secondary to MSSA pericarditis. 3. Severe hypokalemia and hypophosphatemia Clinical suspicion for problem #1 and refeeding syndrome as a possible etiology. Patient with poor care previously. We will continue aggressive resuscitation of electrolytes. Pull central line once electrolytes have been infused. 4. Probable sepsis of unclear etiology Patient has been treated recently with oxacillin secondary to pericardial effusion with MSSA. Unclear if patient has developed MRSA. Pancultures are ne gative. Defer to hospitalist on whether infectious disease needs to be consulted long-term 5. Recent DVT Patient reportedly recently had a DVT. Patient is saturating well on low vent settings. Clinical suspicion for no PE at this time. Okay to transition to Eliquis, with discontinuation of heparin drip, from my perspective Subjective Subjective Patient did well overnight. No acute issues were reported. Patient has been off of Levophed for approximately 24 hours. Patient did have significant diarrhea overnight, but no hematochezia or dark stools were noted. Patient is not reporting any shortness of breath. Patient has been tolerating p.o. Objective Data Objective Data Vital Signs: Vital Signs Temp Pulse Resp BP Pulse Ox O2 Del Method O2 Flow Rate 37.7 C H 115 H 12 114/63 100 Room Air 3 09/20/22 07:00 09/20/22 07:00 09/20/22 07:00 09/20/22 07:00 09/20/22 07:00 09/20/22 07:00 09/19/22 08:00 FiO2 21 09/19/22 06:00 Oxygen Flow Rate (L/min) 3 Oxygen Delivery Method Room Air Weight: 61.9 kg Body Mass Index (BMI) 17.6 Intake & Output: Intake and Output for Last 24 Hours 09/18/22 09/19/22 09/20/22 23:59 23:59 23:59 Intake Total 7071.9166 / 7127.4166 2665.8933 / 3145.8233 787.13 / 787.13 Output Total 7500 / 7500 2410 / 2760 1150 / 1150 Balance -428.0834 / -372.5834 255.8933 / 385.8233 -362.87 / -362.87 Medical Nutrition Assessment Dietitian: Malnutrition Criteria Met Start: 09/17/22 13:46 Freq: Status: Active Protocol: Document 09/19/22 11:53 (Rec: 09/19/22 11:54 [id number]) Nutrition Malnutrition Evidence of Malnutrition Exists Yes Malnutrition (moderate): Chronic Evidenced By Weight Loss (Severe),Physical Changes (Moderate) Clinical Problem Chronic Disease or Condition Related Malnutrition Etiology moderate related to poorly controlled DM1 Signs/Symptoms as evidenced by 15.5lbs (10.1% ) weight loss in 2 months and fat/muscle wasting to orbital, clavicle, acromion, temporal areas Status Active Problem Acute Disease or Injury Related Malnutrition Etiology severe [facility]/ inability to consume adequate nutrition to meet est nutritional needs Signs/Symptoms as evidenced by current NPO status, 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 RD will change kcals to 2000 CCD to manage blood glucose levels. Will assess need for ONS at follow-up base on PO intakes. Lab / Micro Data Attestation: I reviewed the patient's lab results. Result Diagrams: 09/20/22 04:15 09/20/22 04:15 Labs: Laboratory Results - last 24 hr 09/19/22 06:55: POC Glucose 365 H 09/19/22 08:00: Vancomycin Trough 9.8 09/19/22 10:51: POC Glucose 340 H 09/19/22 16:41: POC Glucose 341 H 09/19/22 20:58: POC Glucose 352 H 09/20/22 04:15: WBC 5.8, RBC 3.63 L, Hgb 10.2 L, Hct 29.5 L, MCV 81.3, MCH 28.1, MCHC 34.6, RDW Std Deviation 43.8, RDW Coeff of Rabia 15.0 H, Plt Count 160, MPV 9.2, Immature Gran % (Auto) 0.500, Neut % (Auto) 62.4, Lymph % (Auto) 25.2, Mason % (Auto) 9.0, Eos % (Auto) 2.6, Baso % (Auto) 0.3, Absolute Neuts (auto) 3.6, Absolute Lymphs (auto) 1.45, Nucleated RBC % 0 09/20/22 04:15: Sodium 136, Potassium 2.3 L*, Chloride 107, Carbon Dioxide 19.0 L, Anion Gap 10, BUN 11, Creatinine 0.84, Estim Creat Clear Calc 122.54, Est GFR (MDRD) Af Amer 147, Est GFR (MDRD) Non-Af 122, BUN/Creatinine Ratio 13.1, Glucose 272 H, Calcium 7.9 L, Phosphorus 1.8 L, Magnesium 1.5 L 09/20/22 04:15: APTT 37.3 H Micro: Microbiology 09/17/22 10:50 Blood Culture (Wb) - Right Forearm Blood Culture - Preliminary No growth in 48 hours. 09/17/22 08:55 Blood Culture (Wb) - Anticubital Left Blood Culture - Preliminary No growth in 48 hours. 09/17/22 14:35 Sputum, Induced/Lukens Gram Stain - Final 09/17/22 14:35 Sputum, Induced/Lukens Respiratory Culture - Final Mixed normal respiratory joaquina. No Streptococcus pneumoniae, beta-hemolytic Streptococcus or Staphylococcus aureus isolated. 09/17/22 10:50 Urine, Catheterized Urine Culture - Final Culture exhibits no growth. 09/17/22 12:45 Nasal Secretion SARS-CoV-2 & FLU Antigen (Rapid) - Final Physical Exam Const alert, oriented x3 and no apparent distress General Appearance: frail HEENT normocephalic and head/scalp atraumatic Eyes PERRL, EOMs intact bilaterally, conjunctivae normal and no scleral icterus Neck no lymphadenopathy and supple Resp normal respiratory effort, no retractions, no use of accessory muscles and clear to auscultation bilaterally Cardio regular rate, regular rhythm, S1 normal heart sound, S2 normal heart sound, no murmurs, no rub and no gallops GI normal to inspection, nondistended, normoactive bowel sounds, soft to palpation and non-tender Extremity Extremity Narrative: Foot lesions noted. No edema. Skin Skin Narrative: Bilateral inguinal candidiasis. Bruising on the dorsum of his feet. Healing distal toe lesions on the left second and third toes. Chest wound is clean, dry and intact. Neuro moves all extremities and no focal motor deficits Psych Activity / Motor Behavior: restless Mood & Affect: flat affect Charges/Coding Visit Charges Inpatient E&M: 16182 Subs Hosp L3
[2022-09-20] MEDS: Insulin Lispro 100 UNIT/ML INSULN.PEN SC ×4 (08:06→21:01)
[2022-09-20 08:30] LABS: Bedside Glucose 210 mg/dL (74-106)
[2022-09-20] MEDS: Ondansetron 4 MG/2 ML Vial IV (09:29)
[2022-09-20] MEDS: Colchicine 0.6 MG TABLET PO ×2 (10:48→21:01)
[2022-09-20] MEDS: Insulin Glargine-YFGN 100 UNIT/ML Pen 35 UNIT SC ×2 (10:55→21:00)
[2022-09-20 11:16] LABS: Bedside Glucose 305 mg/dL (74-106)
[2022-09-20 12:04] LABS: Anion Gap 9 (5-15); BUN 11 mg/dL (7-18); BUN/Creat Ratio 11.7 RATIO (10-20); Chloride 111 mmol/L (98-107); Creatinine, Serum 0.94 mg/dL (0.70-1.30); EST Glomerular Filtration Rate 107 mL/min (>60); Est Glom Filt Rate - Afr Amer 129 mL/min (>60); Estimated Creatinine Clearance 108.84 ml/min; Glucose 355 mg/dL (74-106); Magnesium 2.2 mg/dL (1.6-2.6); Phosphorus 2.3 mg/dL (2.5-4.9); Potassium 3.1 mmol/L (3.5-5.1); Sodium Level 138 mmol/L (136-145)
[2022-09-20 12:32] LABS: Partial Thromboplast Time 58.4 Seconds (24.1-36.2)
[2022-09-20 17:15] LABS: Bedside Glucose 310 mg/dL (74-106)
[2022-09-20] MEDS: Rivaroxaban 20 MG Tablet PO (18:22)
--- NOTE | 2022-09-20 20:12 | PN.HOSP_ITS ---
Subjective Subjective Patient was seen and examined today, he is alert and he is in no distress. I talked briefly with his family who are in the room at the time of my examination. Patient appears stable for transfer to the medical floor at this time. I talked with pulmonary medicine briefly about his care today. Objective Data Objective Data Vital Signs: Vital Signs Temp Pulse Resp BP Pulse Ox O2 Del Method O2 Flow Rate 97.5 F L 100 14 94/75 100 Room Air 3 09/20/22 18:52 09/20/22 18:52 09/20/22 18:52 09/20/22 18:52 09/20/22 18:52 09/20/22 18:52 09/19/22 08:00 FiO2 21 09/19/22 06:00 Oxygen Flow Rate (L/min) 3 Oxygen Delivery Method Room Air Weight: 61.9 kg Body Mass Index (BMI) 17.6 Intake & Output: Intake and Output for Last 24 Hours 09/18/22 09/19/22 09/20/22 23:59 23:59 23:59 Intake Total 7071.9166 / 7127.4166 2665.8933 / 3145.8233 1691.00 / 1691.00 Output Total 7500 / 7500 2410 / 2760 1925 / 1925 Balance -428.0834 / -372.5834 255.8933 / 385.8233 -234.00 / -234.00 Medical Nutrition Assessment Dietitian: Malnutrition Criteria Met Start: 09/17/22 13:46 Freq: Status: Active Protocol: Document 09/19/22 11:53 (Rec: 09/19/22 11:54 [id number]) Nutrition Malnutrition Evidence of Malnutrition Exists Yes Malnutrition (moderate): Chronic Evidenced By Weight Loss (Severe),Physical Changes (Moderate) Clinical Problem Chronic Disease or Condition Related Malnutrition Etiology moderate related to poorly controlled DM1 Signs/Symptoms as evidenced by 15.5lbs (10.1% ) weight loss in 2 months and fat/muscle wasting to orbital, clavicle, acromion, temporal areas Status Active Problem Acute Disease or Injury Related Malnutrition Etiology [facility]/ inability to consume adequate nutrition to meet est nutritional needs Signs/Symptoms as evidenced by current NPO status, 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 RD will change kcals to 2000 CCD to manage blood glucose levels. Will assess need for ONS at follow-up base on PO intakes. Lab / Micro Data Result Diagrams: 09/21/22 06:50 09/21/22 13:01 Labs: Laboratory Results - last 24 hr 09/19/22 20:58: POC Glucose 352 H 09/20/22 04:15: WBC 5.8, RBC 3.63 L, Hgb 10.2 L, Hct 29.5 L, MCV 81.3, MCH 28.1, MCHC 34.6, RDW Std Deviation 43.8, RDW Coeff of Raiba 15.0 H, Plt Count 160, MPV 9.2, Immature Gran % (Auto) 0.500, Neut % (Auto) 62.4, Lymph % (Auto) 25.2, Lamar % (Auto) 9.0, Eos % (Auto) 2.6, Baso % (Auto) 0.3, Absolute Neuts (auto) 3.6, Absolute Lymphs (auto) 1.45, Nucleated RBC % 0 09/20/22 04:15: Sodium 136, Potassium 2.3 L*, Chloride 107, Carbon Dioxide 19.0 L, Anion Gap 10, BUN 11, Creatinine 0.84, Estim Creat Clear Calc 122.54, Est GFR (MDRD) Af Amer 147, Est GFR (MDRD) Non-Af 122, BUN/Creatinine Ratio 13.1, Glucose 272 H, Calcium 7.9 L, Phosphorus 1.8 L, Magnesium 1.5 L 09/20/22 04:15: APTT 37.3 H 09/20/22 08:06: POC Glucose 210 H 09/20/22 10:54: POC Glucose 305 H 09/20/22 11:19: Sodium 138, Potassium 3.1 L, Chloride 111 H, Carbon Dioxide 18.0 L, Anion Gap 9, BUN 11, Creatinine 0.94, Estim Creat Clear Calc 108.84, Est GFR (MDRD) Af Amer 129, Est GFR (MDRD) Non-Af 107, BUN/Creatinine Ratio 11.7, Glucose 355 H, Calcium 8.0 L, Phosphorus 2.3 L, Magnesium 2.2 09/20/22 12:00: APTT 58.4 H 09/20/22 16:52: POC Glucose 310 H Micro: Microbiology 09/17/22 10:50 Blood Culture (Wb) - Right Forearm Blood Culture - Preliminary No growth in 48 hours. 09/17/22 08:55 Blood Culture (Wb) - Anticubital Left Blood Culture - Preliminary No growth in 48 hours. 09/17/22 14:35 Sputum, Induced/Lukens Gram Stain - Final 09/17/22 14:35 Sputum, Induced/Lukens Respiratory Culture - Final Mixed normal respiratory joaquina. No Streptococcus pneumoniae, beta-hemolytic Streptococcus or Staphylococcus aureus isolated. 09/17/22 10:50 Urine, Catheterized Urine Culture - Final Culture exhibits no growth. 09/17/22 12:45 Nasal Secretion SARS-CoV-2 & FLU Antigen (Rapid) - Final Physical Exam Const alert and no apparent distress General Appearance: cooperative and well developed Orientation / Consciousness: awake, oriented to person and oriented to place HEENT normocephalic and moist oral mucous membranes Eyes PERRL, EOMs intact bilaterally and conjunctivae normal Neck supple, no JVD, thyroid normal and no carotid bruits General: trachea midline Resp normal respiratory effort, no retractions, no use of accessory muscles and clear to auscultation bilaterally Auscultation: Negative for rales, rhonchi or wheezes Cardio regular rate, regular rhythm, S1 normal heart sound, S2 normal heart sound, no murmurs, no rub and no gallops GI normal to inspection, nondistended, normoactive bowel sounds, soft to palpation, non-tender and non-distended Extremity no clubbing, cyanosis or edema Skin no rashes or lesions noted General Skin Exam: no breakdown Neuro oriented x3, CN's II-XII intact bilaterally, no focal motor deficits and no sensory deficits noted Sensorium / Orientation: awake and alert Speech: speech normal Psych affect normal Assessment & Plan Assessment/Plan (1) DKA (diabetic ketoacidoses): QUALIFIERS: Diabetes mellitus type: type 1 Diabetes mellitus complication detail: with coma Qualified Code(s): E10.11 - Type 1 diabetes eddi litus with ketoacidosis with coma PLAN: Plan 1. Acute DKA with coma-secondary to poorly controlled type 1 diabetes due to noncompliance-patient is currently on nasal cannula oxygen and appears stable, blood sugars are controlled with subcu insulin #2 acute kidney injury-patient had bilateral hydronephrosis on his CT scan, I talked with radiology about this and they stated that the hydronephrosis could have been from bladder outlet obstruction that is currently resolved. Patient's renal functions will be monitored #3 hypokalemia and hypophosphatemia-potassium and phosphate supplementation will be given to the patient #4 subacute DVT-patient is currently on a heparin drip #5 possible sepsis-unclear etiology, patient is on broad-spectrum antibiotics for now #6 severe acute protein and caloric malnutrition related to type 1 diabetes and noncompliance, 12.8% weight loss x2 months, BMI less than 18 at the time of admission, and fat/muscle loss per NFPA-patient will be given 4 ounces of Glucerna shake 4 times a day with med Huixiaoer, patient will be placed on a consistent carbohydrate controlled diet and monitored. Charges/Coding Visit Charges Inpatient E&M: 88619 Subs Hosp L2
[2022-09-20] MEDS: Amox/Clavulanate 875 MG Tablet PO (21:01)
[2022-09-20 21:50] LABS: Bedside Glucose 315 mg/dL (74-106)
[2022-09-21] VITALS (8 sets, daily range): BP systolic 97–122; BP diastolic 59–92; PULSE 72–102; RESP 16–18; TEMP 36.6–36.9; O2SAT 94–100
[2022-09-21 01:00] LABS: Bedside Glucose 258 mg/dL (74-106)
[2022-09-21 07:00] LABS: Absolute Neutrophil Count 2.4 X10^3/uL (2.0-7.7); Basophil# 0.02 X10^3/uL; Basophil% 0.5 % (0-1); Eosinophil# 0.12 X10^3/uL; Eosinophils% 2.8 % (0-5); Hematocrit 32.8 % (40-54); Hemoglobin 11.3 g/dL (13.0-16.5); Lymphocyte % 32.3 % (19-41); Mean Corp Hgb Conc 34.5 g/dL (32-36); Mean Corpuscular Hgb 28.4 pg (27.0-32.0); Mean Corpuscular Volume 82.4 fL (80-94); Mean Platelet Vol. 9.9 fl (6.2-12.0); Monocyte# 0.42 X10^3/uL; Monocyte% 9.7 % (0-10); NRBC Flagged by Analyzer 0 % (0-5); Neutrophil # 2.37 X10^3/uL (2.7-7.7); Neutrophil % 54.5 % (47-70); Platelet Count 208 K/mm3 (150-450); RBC Distribution Width CV 15.1 % (11.6-14.6); RBC Distribution Width SD 44.9 fl (35.1-43.9); Red Blood Count 3.98 M/mm3 (4.6-6.2); White Blood Count 4.3 K/mm3 (4.4-11.0)
[2022-09-21 07:01] LABS: Bedside Glucose 88 mg/dL (74-106)
[2022-09-21 07:49] LABS: ALB/GLOB Ratio 0.9 RATIO (0.9-2.4); AST(SGOT) 9 U/L (15-37); Alanine Aminotransfer ALT/SGPT 11 U/L (16-61); Alkaline Phosphatase 105 U/L (45-117); Anion Gap 8 (5-15); BUN 8 mg/dL (7-18); BUN/Creat Ratio 11.9 RATIO (10-20); Calcium,Total 8.3 mg/dL (8.5-10.1); Chloride 112 mmol/L (98-107); Creatinine, Serum 0.67 mg/dL (0.70-1.30); EST Glomerular Filtration Rate 158 mL/min (>60); Est Glom Filt Rate - Afr Amer 191 mL/min (>60); Estimated Creatinine Clearance 158.37 ml/min; Globulin 3.4 g/dL (2.2-4.2); Glucose 73 mg/dL (74-106); Phosphorus 2.1 mg/dL (2.5-4.9); Potassium 2.4 mmol/L (3.5-5.1); Protein, Total 6.4 g/dL (6.4-8.2); Sodium Level 140 mmol/L (136-145)
[2022-09-21] MEDS: Potassium Chloride Oral Tablet 20 MEQ 60 MEQ PO ×2 (09:37→16:37)
[2022-09-21] MEDS: Amox/Clavulanate 875 MG Tablet PO ×2 (09:38→16:39)
[2022-09-21] MEDS: Insulin Glargine-YFGN 100 UNIT/ML Pen 35 UNIT SC ×2 (10:12→21:17)
[2022-09-21] MEDS: Ondansetron 4 MG/2 ML Vial IV (10:17)
[2022-09-21] MEDS: Colchicine 0.6 MG TABLET PO ×2 (10:21→21:18)
[2022-09-21 10:56] LABS: Bedside Glucose 209 mg/dL (74-106)
--- NOTE | 2022-09-21 11:20 | DCINST_ITS ---
Discharge Instructions Diet Discharge Diet: 2200 Calorie Control Diet Activity Discharge Activity: Return to Normal Activity Weight Bearing Status: Full weight bearing Follow Up Care Test Results: Test results from this visit will be discussed in further detail at your follow- up appointment, if applicable. 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 Discharge Orders/Prescriptions Prescriptions: New insulin glargine-yfgn 100 unit/mL (3 mL) Insulin Pen 35 unit subcut BID Qty: 0 0RF Continued (DME) OneTouch Verio test strips Strip See Rx Instructions .ROUTE .MEDSUPPLY Qty: 200 6RF Rx Instructions: 4x/day (DME) pen needle, diabetic [BD Ultra-Fine Lorin Pen Needle] 32 gauge x 5/32 needle See Rx Instructions .ROUTE .MEDSUPPLY Qty: 360 6RF Rx Instructions: As directed (DME) FreeStyle Niru 14 Day Sensor Kit See Rx Instructions .ROUTE .MEDSUPPLY Qty: 2 5RF Rx Instructions: As directed potassium chloride [Klor-Con M20] 20 mEq tablet,ER particles/crystals 40 meq PO BID insulin lispro [Humalog KwikPen Insulin] 100 unit/mL insulin pen See Protocol subcut ACHS Protocol: 1. Sliding Scale Insulin Low Dosing Condition: 150-224 mg/dl = 1 unit Condition: 225-299 mg/dl = 2 units Condition: 300-374 mg/dl = 3 units Condition: 375-499 mg/dl = 4 units Condition: Greater than 449 call physician Protocol Text: - Use for Total Daily Dose of Insulin 15-27 units - Thin, elderly, renal patients LOW DOSING ALGORITHM insulin lispro [Humalog KwikPen Insulin] 100 unit/mL insulin pen 25 unit subcut TIDAC colchicine 0.6 mg tablet 0.6 mg PO BID Label Comments: TAKE 1 TABLET BY MOUTH TWICE DAILY Xarelto 20 mg Tablet 20 mg PO DAILY Rx Instructions: must administer with evening meal Discontinued insulin glargine-yfgn 100 unit/mL (3 mL) insulin pen 45 unit subcut QHS Referrals / Follow Up: Lee Ann Henry MD [Primary Care Provider] - Mario Reyes MD [Med Staff - Room Service Server] - 09/29/22 10:00 am ([facility] ([facility]) will pick you and your grandmother up at your house on Sun09/29/22 @ 9 AM. Please wear a mask during transport per [facility] request. Call them when ready to return home from appointment @ [phone]. Trip # [phone] Call [facility] @ [phone] if you need to make any changes. ) Disposition Disposition (needs filled in before D/C Order can be placed): Home, Self Care
--- NOTE | 2022-09-21 11:53 | CASEMGMT ---
Addendum entered by Maddi Reyna 09/21/22 12:01: Dr Be made aware [facility] not able to get pt in until Saturday 09/29 and he states this is okay. Original Note: VERONA FONTANEZ NOTE: Per Dr Be, pt ready for discharge home today. VERONA FONTANEZ placed call to Joann @ [facility] and appt made w/Dr Reyes for 09/29 @ 10 AM. Call placed to [facility]ol[facility] to arrange transportation. Per Paige, they use [facility] for transportation. # [phone]. Call placed to [facility]. Transportation arranged for pickler helper of pt and his grandmother on 09/29 @ 9 AM to take them to pt's appt w/Dr Reyes @ 10 AM. [facility] will transport them back home after the appt. Appt information and [facility] information all placed in pt's discharge plan and to be given to pt @ d/c. VERONA FONTANEZ to room and notified pt of all of the above. He states his grandmother will be back soon. VERONA FONTANEZ will talk w/grandmother when she returns to update her on all of the above. Pt states he is not feeling well, that he has a headache and earache. Arina RHOADES, aware and states she has been in touch with Dr Be re: same. Ena LEVINEN VERONA FONTANEZ
[2022-09-21] MEDS: Acetaminophen 325 MG Tablet 650 MG PO ×2 (11:55→23:00)
[2022-09-21] MEDS: Insulin Lispro 100 UNIT/ML INSULN.PEN SC ×3 (11:56→21:16)
[2022-09-21 13:41] LABS: Anion Gap 10 (5-15); BUN 7 mg/dL (7-18); BUN/Creat Ratio 9.8 RATIO (10-20); Calcium,Total 8.6 mg/dL (8.5-10.1); Chloride 108 mmol/L (98-107); Creatinine, Serum 0.71 mg/dL (0.70-1.30); EST Glomerular Filtration Rate 147 mL/min (>60); Est Glom Filt Rate - Afr Amer 178 mL/min (>60); Estimated Creatinine Clearance 149.45 ml/min; Glucose 196 mg/dL (74-106); Potassium 2.8 mmol/L (3.5-5.1); Sodium Level 140 mmol/L (136-145)
[2022-09-21] MEDS: Potassium Chloride Oral Tablet 20 MEQ 40 MEQ PO ×2 (14:47→18:52)
--- NOTE | 2022-09-21 16:09 | PCM.PN.HOSP ---
Subjective Subjective Patient was seen and examined today, he complained of right ear pain-I looked at his tympanic membrane and there is some fluid in back of it but there is no impacted cerumen and the eardrum does not look reddened. Patient's potassium which was repeated this afternoon was low again at 2.8, I have elected to place him on some IV fluids with potassium and give him additional potassium supplementation. I will repeat his BMP in the morning. Patient's blood sugars are under better control at this time. Objective Data Objective Data Vital Signs: Vital Signs Temp Pulse Resp BP Pulse Ox O2 Del Method O2 Flow Rate 98.4 F 97 16 97/59 L 99 Room Air 3 09/21/22 14:58 09/21/22 14:58 09/21/22 14:58 09/21/22 14:58 09/21/22 14:58 09/21/22 14:58 09/21/22 10:00 FiO2 21 09/21/22 10:00 Oxygen Flow Rate (L/min) 3 Oxygen Delivery Method Room Air Weight: 64.2 kg Body Mass Index (BMI) 17.6 Intake & Output: Intake and Output for Last 24 Hours 09/19/22 09/20/22 09/21/22 23:59 23:59 23:59 Intake Total 2665.8933 / 3145.8233 2091.00 / 2091.00 960 / 960 Output Total 2410 / 2760 1925 / 1925 300 / 300 Balance 255.8933 / 385.8233 166.00 / 166.00 660 / 660 Medical Nutrition Assessment Dietitian: Malnutrition Criteria Met Start: 09/17/22 13:46 Freq: Status: Active Protocol: Document 09/19/22 11:53 LO (Rec: 09/19/22 11:54 [id number]) Nutrition Malnutrition Evidence of Malnutrition Exists Yes Malnutrition (moderate): Chronic Evidenced By Weight Loss (Severe),Physical Changes (Moderate) Clinical Problem Chronic Disease or Condition Related Malnutrition Etiology moderate related to poorly controlled DM1 Signs/Symptoms as evidenced by 15.5lbs (10.1% ) weight loss in 2 months and fat/muscle wasting to orbital, clavicle, acromion, temporal areas Status Active Problem Acute Disease or Injury Related Malnutrition Etiology severe related [facility] w/ inability to consume adequate nutrition to meet est nutritional needs Signs/Symptoms as evidenced by current NPO status, 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 RD will change kcals to 2000 CCD to manage blood glucose levels. Will assess need for ONS at follow-up base on PO intakes. Lab / Micro Data Result Diagrams: 09/21/22 06:50 09/21/22 13:01 Labs: Laboratory Results - last 24 hr 09/20/22 16:52: POC Glucose 310 H 09/20/22 20:56: POC Glucose 315 H 09/21/22 00:39: POC Glucose 258 H 09/21/22 06:37: POC Glucose 88 09/21/22 06:50: Sodium 140, Potassium 2.4 L*, Chloride 112 H, Carbon Dioxide 20.0 L, Anion Gap 8, BUN 8, Creatinine 0.67 L, Estim Creat Clear Calc 158.37, Est GFR (MDRD) Af Amer 191, Est GFR (MDRD) Non-Af 158, BUN/Creatinine Ratio 11.9, Glucose 73 L, Calcium 8.3 L, Phosphorus 2.1 L, Magnesium 2.0, Total Bilirubin 0.70, AST 9 L, ALT 11 L, Alkaline Phosphatase 105, Total Protein 6.4, Albumin 3.0 L, Globulin 3.4, Albumin/Globulin Ratio 0.9 09/21/22 06:50: WBC 4.3 L, RBC 3.98 L, Hgb 11.3 L, Hct 32.8 L, MCV 82.4, MCH 28.4, MCHC 34.5, RDW Std Deviation 44.9 H, RDW Coeff of Rabia 15.1 H, Plt Count 208, MPV 9.9, Immature Gran % (Auto) 0.200, Neut % (Auto) 54.5, Lymph % (Auto) 32.3, [place] % (Auto) 9.7, Eos % (Auto) 2.8, Baso % (Auto) 0.5, Absolute Neuts (auto) 2.4, Absolute Lymphs (auto) 1.40, Nucleated RBC % 0 09/21/22 10:20: POC Glucose 209 H 09/21/22 13:01: Sodium 140, Potassium 2.8 L, Chloride 108 H, Carbon Dioxide 22.0, Anion Gap 10, BUN 7, Creatinine 0.71, Estim Creat Clear Calc 149.45, Est GFR (MDRD) Af Amer 178, Est GFR (MDRD) Non-Af 147, BUN/Creatinine Ratio 9.8 L, Glucose 196 H, Calcium 8.6 Micro: Microbiology 09/17/22 10:50 Blood Culture (Wb) - Right Forearm Blood Culture - Preliminary No growth in 48 hours. 09/17/22 08:55 Blood Culture (Wb) - Anticubital Left Blood Culture - Preliminary No growth in 48 hours. 09/17/22 14:35 Sputum, Induced/Lukens Gram Stain - Final 09/17/22 14:35 Sputum, Induced/Lukens Respiratory Culture - Final Mixed normal respiratory joaquina. No Streptococcus pneumoniae, beta-hemolytic Streptococcus or Staphylococcus aureus isolated. 09/17/22 10:50 Urine, Catheterized Urine Culture - Final Culture exhibits no growth. 09/17/22 12:45 Nasal Secretion SARS-CoV-2 & FLU Antigen (Rapid) - Final Physical Exam Const alert, oriented x3 and no apparent distress General Appearance: cooperative, well kempt and well developed Orientation / Consciousness: awake, oriented to person and oriented to place HEENT normocephalic and moist oral mucous membranes HEENT Narrative: Right tympanic membrane is moderately dull with evidence of fluid in back of the tympanic membrane, no redness is noted Eyes PERRL, EOMs intact bilaterally and conjunctivae normal Neck supple, no JVD, thyroid normal and no carotid bruits General: trachea midline Resp normal respiratory effort and clear to auscultation bilaterally Auscultation: Negative for rales, rhonchi or wheezes Cardio regular rate, regular rhythm, no murmurs, no rub and no gallops GI normal to inspection, nondistended, normoactive bowel sounds, soft to palpation, non-tender and non-distended Extremity no clubbing, cyanosis or edema Skin no rashes or lesions noted General Skin Exam: no breakdown Neuro oriented x3, CN's II-XII intact bilaterally, no focal motor deficits and no sensory deficits noted Sensorium / Orientation: awake and alert Speech: speech normal Psych affect normal Assessment & Plan Assessment/Plan (1) DKA (diabetic ketoacidoses): QUALIFIERS: Diabetes mellitus complication detail: with coma Diabetes mellitus type: type 1 Qualified Code(s): E10.11 - Type 1 diabetes mellitus with ketoacidosis with coma PLAN: Plan 1. Acute DKA with coma-secondary to poorly controlled type 1 diabetes due to noncompliance-patient is currently on room air, blood sugars are under better control, patient is on basal insulin and sliding scale insulin as well as insulin with meals. #2 acute kidney injury-this appears to be resolved #3 hypokalemia and hypophosphatemia-potassium and phosphate supplementation will be given to the patient, chemistry panels will be repeated tomorrow #4 subacute DVT-patient is currently on Xarelto 20 mg daily #5 possible sepsis-unclear etiology, patient is on broad-spectrum antibiotics for now #6 severe acute protein and caloric malnutrition related to type 1 diabetes and noncompliance, 12.8% weight loss x2 months, BMI less than 18 at the time of admission, and fat/muscle loss per NFPA-patient will be given 4 ounces of Glucerna shake 4 times a day with [employer], patient will be placed on a consistent carbohydrate controlled diet and monitored. Charges/Coding Visit Charges Inpatient E&M: 58015 Subs Hosp L2
--- NOTE | 2022-09-21 16:33 | CASEMGMT ---
Social Work Pt with multiple admissions over the last year. Pt does not have advance directives and has declined need for information. BRENT Stanley
[2022-09-21] MEDS: KCL 20MEQ in 0.9% NS 20 MEQ/1,000 ML IV.SOLN. 100 MEQ IV (16:35)
[2022-09-21] MEDS: 0.9% Saline Lock 10 ML Syringe IV (16:37)
[2022-09-21] MEDS: Rivaroxaban 20 MG Tablet PO (16:52)
[2022-09-21] MEDS: Na Biphos/Potassium Phosphate PACKET 1 PACKET PO (17:13)
[2022-09-21 17:35] LABS: Bedside Glucose 341 mg/dL (74-106)
[2022-09-21 21:41] LABS: Bedside Glucose 333 mg/dL (74-106)
[2022-09-22 03:15] VITALS: BP 95/60; PULSE 68; RESP 16; TEMP 36.8; O2SAT 100
[2022-09-22] MEDS: KCL 20MEQ in 0.9% NS 20 MEQ/1,000 ML IV.SOLN. 100 MEQ IV (03:16)
[2022-09-22 04:00] VITALS: BP 95/60; PULSE 68; RESP 16; TEMP 36.8; O2SAT 100
[2022-09-22 06:02] LABS: ALB/GLOB Ratio 0.8 RATIO (0.9-2.4); AST(SGOT) 8 U/L (15-37); Alanine Aminotransfer ALT/SGPT 9 U/L (16-61); Albumin, Serum 2.6 g/dL (3.2-5.0); Alkaline Phosphatase 84 U/L (45-117); Anion Gap 5 (5-15); BUN 7 mg/dL (7-18); BUN/Creat Ratio 14.3 RATIO (10-20); Calcium,Total 8.3 mg/dL (8.5-10.1); Chloride 115 mmol/L (98-107); Creatinine, Serum 0.49 mg/dL (0.70-1.30); EST Glomerular Filtration Rate 227 mL/min (>60); Est Glom Filt Rate - Afr Amer 275 mL/min (>60); Estimated Creatinine Clearance 214.19 ml/min; Globulin 3.2 g/dL (2.2-4.2); Glucose 61 mg/dL (74-106); Magnesium 2.4 mg/dL (1.6-2.6); Phosphorus 2.3 mg/dL (2.5-4.9); Potassium 3.5 mmol/L (3.5-5.1); Protein, Total 5.8 g/dL (6.4-8.2); Sodium Level 142 mmol/L (136-145)
[2022-09-22 06:20] LABS: Bedside Glucose 50 mg/dL (74-106)
[2022-09-22 06:35] LABS: Bedside Glucose 70 mg/dL (74-106)
[2022-09-22 07:58] VITALS: O2SAT 99
[2022-09-22] MEDS: Acetaminophen 325 MG Tablet 650 MG PO (08:12)
[2022-09-22] MEDS: Na Biphos/Potassium Phosphate PACKET 1 PACKET PO (08:13)
[2022-09-22] MEDS: Amox/Clavulanate 875 MG Tablet PO (08:13)
[2022-09-22] MEDS: Colchicine 0.6 MG TABLET PO (08:13)
[2022-09-22 08:26] VITALS: BP 92/60; PULSE 82; RESP 16; TEMP 36.6; O2SAT 100
[2022-09-22 08:41] LABS: Bedside Glucose 157 mg/dL (74-106)
--- NOTE | 2022-09-22 09:25 | PCM.DC.SUM ---
Providers Date of Admission: 09/17/22 Date of Discharge: 09/22/22 Primary Care Physician: Dr. Lee Ann Henry MD Consultations 09/17/22 11:26 Consult: Electric Motor Tester Assembler / Pulmonary Medicine Routine Consulting Provider: Pulmonary Medicine karis [place] Reason for Consult: Protecting airway, intubated, DKA bicarb 3, on insulin gtt and fluids EMERGENT Consult: No MD Notified: Yes Date Notified: 09/17/22 Time Notified: 13:25 Method of Notification: Text Reason For Visit: DKA Diagnosis Discharge Diagnosis (1) DKA (diabetic ketoacidoses): Status: Acute Code(s): E11.10 - Type 2 diabetes mellitus with ketoacidosis without coma Qualifiers: Diabetes mellitus type: type 1 Diabetes mellitus complication detail: with coma Qualified Code(s): E10.11 - Type 1 diabetes mellitus with ketoacidosis with coma Plan 1. Acute DKA with coma-secondary to poorly controlled type 1 diabetes due to noncompliance-patient is currently on room air, blood sugars are under better control, patient is on basal insulin and sliding scale insulin as well as insulin with meals. #2 acute kidney injury-this appears to be resolved #3 hypokalemia and hypophosphatemia-potassium and phosphate supplementation will be given to the patient, chemistry panels will be repeated tomorrow #4 History of DVT-patient is currently on Xarelto 20 mg daily #5 possible sepsis-unclear etiology #6 severe acute protein and caloric malnutrition related to type 1 diabetes and noncompliance, 12.8% weight loss x2 months, BMI less than 18 at the time of admission, and fat/muscle loss per NFPA-patient will be given 4 ounces of Glucerna shake 4 times a day with [employer], patient will be placed on a consistent carbohydrate controlled diet and monitored. #7 noncompliance with medical regimen #8 ventilatory support due to metabolic encephalopathy/coma Medications at Discharge Home Medications blood sugar diagnostic (OneTouch Verio test strips) #200 ea 09/08/21 pen needle, diabetic 32 gauge x /32 (BD Ultra-Fine Lorin Pen Needle) #360 ea 09/08/21 flash glucose sensor (FreeStyle Niru 14 Day Sensor kit) #2 ea 10/11/21 insulin lispro 100 unit/mL subcutaneous pen (Humalog KwikPen (U-100) Insulin) 25 unit subcut TIDAC DM 07/24/22 insulin lispro 100 unit/mL subcutaneous pen (Humalog KwikPen (U-100) Insulin) See Protocol subcut ACHS DM 07/24/22 potassium chloride 20 mEq tablet,extended release(part/cryst) (Klor-Con M) 40 meq PO BID supplement 07/24/22 colchicine 0.6 mg tablet 0.6 mg PO BID 09/17/22 rivaroxaban 20 mg tablet (Xarelto) 20 mg PO DAILY 09/17/22 insulin glargine-yfgn 100 unit/mL (3 mL) subcutaneous pen 35 unit (0.35 mL) subcut BID #0 mL 09/21/22 Hospital Course Operations None Procedures Intubation Summary of Care Provided Minutes Spent on Discharge: 32 Hospital Course: This 21-year-old white male was seen in the emergency room at [facility] after becoming unresponsive at home, patient has long history of uncontrolled type 1 diabetes, he is noncompliant with treatment. Due to the patient's mental status in the emergency room, decision was made to intubate the patient, labs obtained included a CBC which showed a leukocytosis of 15.6, creatinine was 1.33, patient's glucose was 644 with an anion gap of 30 with small serum acetone. Patient was given IV fluids in the ER, CT of the brain and cervical spine showed no acute pathology, CT of the abdomen showed bilateral hydronephrosis and hydroureter, patient was placed on insulin drip and a fentanyl drip for sedation, Youssef catheter was inserted and he was admitted to ICU for further care. Patient was seen in consultation by critical care, he was maintained on IV antibiotics for possible sepsis although no exact cause of the sepsis was known. Patient ultimately extubated himself and was able to be maintained on low-flow supplemental oxygen and then on room air. Patient was moved to [place] [id number], electrolytes were monitored and they were replaced. Patient's insulin was readjusted. Appointment was made for the patient to follow-up with a primary care physician within 2 weeks. On 09/22/2022, patient was seen and examined: On examination he appeared in good health and spirits. Vital signs as documented. Skin warm and dry and without overt rashes. Neck without JVD, neck was supple, trachea midline, thyroid was normal. Lungs clear bilaterally, normal air movement was noted. Heart exam notable for regular rhythm, normal sounds and absence of murmurs, rubs or gallops. Abdomen unremarkable and without evidence of organomegaly, masses, or abdominal aortic enlargement. Bowel sounds are present, abdomen is not distended. Extremities nonedematous, no cyanosis was noted, no clubbing was noted. Neuro: Cranial nerves II through XII are grossly intact, no focal motor deficits were noted, sensation to light touch and pinprick intact, motor exam 5/5 throughout. Psych: Patient is alert and oriented x3, he does not appear anxious or depressed, he does not appear agitated. Patient appears stable for discharge on 09/22/2022. Patient is at a high potential for readmission due to his history of noncompliance with his type 1 diabetes. Medical Records Data Medical Nutrition Assessment Dietitian: Malnutrition Criteria Met Start: 09/17/22 13:46 Freq: Status: Active Protocol: Document 09/19/22 11:53 LO (Rec: 09/19/22 11:54 [id number]) Nutrition Malnutrition Evidence of Malnutrition Exists Yes Malnutrition (moderate): Chronic Evidenced By Weight Loss (Severe),Physical Changes (Moderate) Clinical Problem Chronic Disease or Condition Related Malnutrition Etiology moderate related to poorly controlled DM1 Signs/Symptoms as evidenced by 15.5lbs (10.1% ) weight loss in 2 months and fat/muscle wasting to orbital, clavicle, acromion, temporal areas Status Active Problem Acute Disease or Injury Related Malnutrition Etiology severe related to pt on mech ventilator w/ inability to consume adequate nutrition to meet est nutritional needs Signs/Symptoms as evidenced by current NPO status, 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 RD will change kcals to 2000 CCD to manage blood glucose levels. Will assess need for ONS at follow-up base on PO intakes. Weight / BMI Weight Weight: 63.5 kg Body Mass Index (BMI) 17.6 ABG / Lab / Microbiology Data Result Diagrams: 09/21/22 06:50 09/22/22 05:18 Laboratory: Laboratory Results - last 24 hr 09/21/22 10:20: POC Glucose 209 H 09/21/22 13:01: Sodium 140, Potassium 2.8 L, Chloride 108 H, Carbon Dioxide 22.0, Anion Gap 10, BUN 7, Creatinine 0.71, Estim Creat Clear Calc 149.45, Est GFR (MDRD) Af Amer 178, Est GFR (MDRD) Non-Af 147, BUN/Creatinine Ratio 9.8 L, Glucose 196 H, Calcium 8.6 09/21/22 17:13: POC Glucose 341 H 09/21/22 21:14: POC Glucose 333 H 09/22/22 05:18: Sodium 142, Potassium 3.5, Chloride 115 H, Carbon Dioxide 22.0, Anion Gap 5, BUN 7, Creatinine 0.49 L, Estim Creat Clear Calc 214.19, Est GFR (MDRD) Af Amer 275, Est GFR (MDRD) Non-Af 227, BUN/Creatinine Ratio 14.3, Glucose 61 L, Calcium 8.3 L, Phosphorus 2.3 L, Magnesium 2.4, Total Bilirubin 0.40, AST 8 L, ALT 9 L, Alkaline Phosphatase 84, Total Protein 5.8 L, Albumin 2.6 L, Globulin 3.2, Albumin/Globulin Ratio 0.8 L 09/22/22 05:48: POC Glucose 50 L 09/22/22 06:15: POC Glucose 70 L 09/22/22 08:12: POC Glucose 157 H Microbiology: Microbiology 09/17/22 10:50 Blood Culture (Wb) - Right Forearm Blood Culture - Preliminary No growth in 48 hours. 09/17/22 08:55 Blood Culture (Wb) - Anticubital Left Blood Culture - Preliminary No growth in 48 hours. 09/17/22 14:35 Sputum, Induced/Lukens Gram Stain - Final 09/17/22 14:35 Sputum, Induced/Lukens Respiratory Culture - Final Mixed normal respiratory joaquina. No Streptococcus pneumoniae, beta-hemolytic Streptococcus or Staphylococcus aureus isolated. 09/17/22 10:50 Urine, Catheterized Urine Culture - Final Culture exhibits no growth. 09/17/22 12:45 Nasal Secretion SARS-CoV-2 & FLU Antigen (Rapid) - Final D/C Instructions Discharge Diet: 2200 Calorie Control Diet Weight Bearing Status: Full weight bearing Meaningful Use Info Meaningful Use Diagnoses (Choose all that apply): None applicable Discharge Plan Admission Admit Date/Time: 09/17/22 11:05 Primary Reason for Your Visit: DKA Attending Provider: Satish Be Primary Care Provider: Lee Ann Henry Consulting Providers: Radha Randolph ; Pauly Street ; Tanmay Ferrell ; Pb Momin ; Antonio Aleman ; Cem Valentin ; Judie Jay DRILLING ENGINEER Discharge Orders/Prescriptions Prescriptions: New insulin glargine-yfgn 100 unit/mL (3 mL) Insulin Pen 35 unit subcut BID Qty: 0 0RF Continued (DME) OneTouch Verio test strips Strip See Rx Instructions .ROUTE .MEDSUPPLY Qty: 200 6RF Rx Instructions: 4x/day (DME) pen needle, diabetic [BD Ultra-Fine Lorin Pen Needle] 32 gauge x 5/32 needle See Rx Instructions .ROUTE .MEDSUPPLY Qty: 360 6RF Rx Instructions: As directed (DME) FreeStyle Inru 14 Day Sensor Kit See Rx Instructions .ROUTE .MEDSUPPLY Qty: 2 5RF Rx Instructions: As directed potassium chloride [Klor-Con M20] 20 mEq tablet,ER particles/crystals 40 meq PO BID insulin lispro [Humalog KwikPen Insulin] 100 unit/mL insulin pen See Protocol subcut ACHS Protocol: 1. Sliding Scale Insulin Low Dosing Condition: 150-224 mg/dl = 1 unit Condition: 225-299 mg/dl = 2 units Condition: 300-374 mg/dl = 3 units Condition: 375-499 mg/dl = 4 units Condition: Greater than 449 call physician Protocol Text: - Use for Total Daily Dose of Insulin 15-27 units - Thin, elderly, renal patients LOW DOSING ALGORITHM insulin lispro [Humalog KwikPen Insulin] 100 unit/mL insulin pen 25 unit subcut TIDAC colchicine 0.6 mg tablet 0.6 mg PO BID Label Comments: TAKE 1 TABLET BY MOUTH TWICE DAILY Xarelto 20 mg Tablet 20 mg PO DAILY Rx Instructions: must administer with evening meal Discontinued insulin glargine-yfgn 100 unit/mL (3 mL) insulin pen 45 unit subcut QHS Referrals / Follow Up: Lee Ann Henry MD [Primary Care Provider] - Mario Reyes MD [Med Staff - Assembly Riveter] - 09/29/22 10:00 am ([facility] transportation ([facility]) will pick you and your grandmother up at your house on Sun09/29/22 @ 9 AM. Please wear a mask during transport per [facility] request. Call them when ready to return home from appointment @ [phone]. Trip # [phone] Call [facility] @ [phone] if you need to make any changes. ) Disposition Disposition (needs filled in before D/C Order can be placed): Home, Self Care Charges/Coding Visit Charges Inpatient E&M: 01631 Disch Hosp
[2022-09-22 09:44] VITALS: BP 92/60; PULSE 82; RESP 16; TEMP 36.6; O2SAT 100
[2022-09-22] MEDS: Insulin Glargine-YFGN 100 UNIT/ML Pen 35 UNIT SC (10:09)
[2022-09-22 10:25] LABS: Bedside Glucose 165 mg/dL (74-106)
--- NOTE | 2022-09-22 10:31 | CASEMGMT ---
Addendum entered by Margoth Jeronimo 09/22/22 11:19: TC to [facility] and spoke with a rep who added patient and patient's grandmother's phone number to their text reminders. Received phone number of [phone] which is the phone number to call after the appt next Sunday. Updated dc instructions. TC to [facility] office, spoke with nurse Jennifer, updated on patient history and frequent hospitalizations. Faxed copy of dc summary to their office, corrected summary with PCP and [facility]'s phone number. Jennifer states that patient's appt next Sunday is for a hospital follow up, not for establishment of care. Trf'd to scheduling to transfer care. Appt made for March 23, 2023 for establishment of care. Unable to set up transportation at this time for this. Updated pt on this appt, put on dc instructions. Original Note: VERONA FONTANEZ in to pt room, pt in the bathroom. TC to pt grandmother to make aware of appts. She states she is not planning on coming in today due to the rain. She is aware of the dr appt next Sunday at 10am and that transportation will pick her an pt up at 9am and will bring them back home after the appt. She states she will put this in her phone. States that she reviews pt dc instructions and adds items to her phone to remember. TC to [facility], phone number goes to busy signal. TC to [facility] to confirm number, they are closed for the holiday. She states pt does not have transportation home, message to hospitalist who states pt is ready for dc and amb pox not needed. VERONA FONTANEZ in to pt room, pt is aware of the appt next Sunday and transportation. He is aware this is also on his dc instructions. Pt is agreable to hospital transportation home. TC to [facility] for the [facility] van, they are able to take pt home at 2:30p. Pt is aware and updated pt nurse for pt to be at the main entrance at 2:30p.
[2022-09-22] MEDS: Insulin Lispro 100 UNIT/ML INSULN.PEN SC (11:09)
[2022-09-22 11:31] LABS: Bedside Glucose 170 mg/dL (74-106)
[2022-09-22 14:10] VITALS: BP 96/68; PULSE 77; RESP 18; TEMP 36.8; O2SAT 99
--- NOTE | 2022-09-25 10:04 | CASEMGMT ---
Complex Pump Servicer Helper attempted to contact pt via TC. Pt did not answer. Navigator left a voicemail with her name and phone contact for pt to call back if desired.
--- NOTE | 2022-09-28 10:36 | CASEMGMT ---
TC to pt's aunt, Sobia, in an attempt to get in contact with pt. Per previous notes in [facility], Sobia's number is listed d/t the family not having phones. No answer. Navigator left her name and phone contact in the event pt would want to call back. Navigator wanted to remind pt of appointment tomorrow and make sure everything is still set with transportation.?
--- NOTE | 2022-10-02 15:05 | CASEMGMT ---
TC to the office of Dr. Reyes. Complex Operations Support Coordinator spoke with VERONA Bowles. Jelena verified that Pt did show for his appointment on 09/29. A follow-up will take place in six months.
== END 2022-09-22 14:29 | disposition home or self-care (01) | DRG 420 ==
LOC: ED 09:36 → ICU 11:37 → MS3 09-20 18:51
PROVIDERS: Family Medicine; Internal Medicine Critical Care Medicine; Admitting Provider Internal Medicine; Emergency Provider Student in an Organized Health Care Education/Training Program; PCP Internal Medicine; Visit Provider Internal Medicine
DX: E10.11 Type 1 diabetes mellitus with ketoacidosis with coma (principal); A41.9 Sepsis, unspecified organism; G93.41 Metabolic encephalopathy; E43 Unspecified severe protein-calorie malnutrition; I31.39 Other pericardial effusion (noninflammatory); N17.9 Acute kidney failure, unspecified; Z79.4 Long term (current) use of insulin; E83.39 Other disorders of phosphorus metabolism; S09.90XA Unspecified injury of head, initial encounter; S70.211A Abrasion, right hip, initial encounter; S80.212A Abrasion, left knee, initial encounter; S70.01XA Contusion of right hip, initial encounter; S50.312A Abrasion of left elbow, initial encounter; E87.6 Hypokalemia; S30.1XXA Contusion of abdominal wall, initial encounter; E86.0 Dehydration; I95.9 Hypotension, unspecified; W01.10XA Fall on same level from slipping, tripping and stumbling with subsequent striking against unspecified object, initial encounter; Z91.199 Patient's noncompliance with other medical treatment and regimen due to unspecified reason; R50.9 Fever, unspecified; N13.30 Unspecified hydronephrosis; N13.4 Hydroureter; Z79.01 Long term (current) use of anticoagulants; N32.0 Bladder-neck obstruction; Z68.1 Body mass index [BMI] 19.9 or less, adult; Z20.822 Contact with and (suspected) exposure to COVID-19; Z86.718 Personal history of other venous thrombosis and embolism
CPT/HCPCS: 31500; 31720; 36415; 36600; 51702; 70450; 71045; 71260; 72125; 74018; 74177; 80048; 80053; 80202; 80307; 81001; 82009; 82550; 82803; 82962; 83605; 83735; 84100; 84484; 85025; 85610; 85730; 87040; 87070; 87086; 87205; 87428; 93005; 93308; 94002; 94003; 94660; 97162; 97166; 97530; 97535; 97802; 97803; 99251; 99285; J7030; J7040; J7050; Q9967; A4216; C1751; G0463; J2405; J3010; J7799

== ENCOUNTER 2022-12-19 01:10 | Inpatient (IN) | payer MEDICAID, SELFPAY ==
[2022-12-19] VITALS (25 sets, daily range): BP systolic 86–130; BP diastolic 48–96; PULSE 78–137; RESP 14–33; TEMP 35.4–38.3; O2SAT 96–100; BMI 21.8; BMI 20.2
--- NOTE | 2022-12-19 01:35 | CT_ITS ---
EXAM: CT HEAD WITHOUT INTRAVENOUS CONTRAST CLINICAL INDICATION: altered mental status, fall altered mental status, fall TECHNIQUE: Multiple axial images were obtained of the head without intravenous contrast. This CT exam was performed using one or more of the following dose reduction techniques: automated exposure control, adjustment of the mA and/or kV according to patient size, and/or use of iterative reconstruction technique. This report was created using [employer] report generation technology. RADIATION DOSE: CTDIvol = 44.99 mGy, DLP = 846.73 mGy-cm COMPARISON: None. FINDINGS: BRAIN AND EXTRA-AXIAL SPACES: Unremarkable. No intra- or extra-axial hemorrhage. No evidence of acute infarct. No intracranial mass or mass effect. There is preservation of the alexandre/white matter interface. Posterior fossa structures are unremarkable. Ventricles are appropriate for age. No hydrocephalus. Basal cisterns are patent. BONES/JOINTS: Unremarkable. No discrete lytic or blastic abnormalities. SINUSES: Unremarkable as visualized. Clear. MASTOID AIR CELLS: Unremarkable. Clear. ORBITS: Visualized globes, extraocular muscles, optic nerves and retrobulbar fat appear unremarkable. CT/Brain/Head without Contrast IMPRESSION: Negative head/brain CT without intravenous contrast. Electronically Signed: Lui Drake MD at 2:59 EST Reading Location ID and State: [facility] / [place] , Service support ,
--- NOTE | 2022-12-19 01:35 | EKG12_ITS ---
Test Reason : HYPERGLYCEMIA Blood Pressure : / mmHG Vent. Rate : 102 BPM Atrial Rate : 102 BPM P-R Int : 146 ms QRS Dur : 100 ms QT Int : 362 ms P-R-T Axes : 072 070 055 degrees QTc Int : 471 ms Sinus tachycardia Otherwise normal ECG Confirmed by YANE CASTILLO, ROXANNE ([id number]), dictionary editor AYESHA VALLE ([id number]) on 12/19/2022 8:57:39 AM Referred By: DEREJE Confirmed By:ROXANNE CHE MD
--- NOTE | 2022-12-19 01:35 | RAD_ITS ---
EXAM: XR CHEST, 1 VIEW CLINICAL INDICATION: dyspnea dyspnea TECHNIQUE: Frontal view of the chest. This report was created using [employer] report generation technology. COMPARISON: 09/18/2022. FINDINGS: LUNGS AND PLEURAL SPACES: Unremarkable. No consolidation or edema. No pneumothorax. No effusion. HEART: Unremarkable. Cardiac silhouette not enlarged. MEDIASTINUM: Central airways and mediastinal contour are unremarkable. BONES/JOINTS: Unremarkable. SOFT TISSUES: Unremarkable. RAD/Chest 1 View (Portable) IMPRESSION: No radiographic evidence of acute cardiopulmonary disease. Electronically Signed: Lui Drake MD at 2:55 EST Reading Location ID and State: [facility] / [place] , Service support ,
--- NOTE | 2022-12-19 01:37 | EX.ED.DYSGE1 ---
HPI History of Present Illness Chief Complaint: Hyperglycemia Informant: patient, family (grandmother) and EMS Onset/Context/Timing Onset: Today Context: Gradual Onset Timing: Continuous Narrative Narrative: Latter half of the day, patient becoming more tired, vomiting, breathing hard, confused. Mother states he went downstairs to the bathroom and she heard him fall and went into check on him and he was on the floor having bent the shower curtain jo ann, she was suspecting he fell against it. He does not recall. She is suspicious that he may be in DKA again. His blood sugar was 390 at home and he did take his insulin but has not been eating today. Type 1 insulin-dependent diabetic, history of DKA recurrently. Appears to be short of breath but denies being dyspneic. Denies any pain in his chest or abdomen and denies being nauseated right now but confused. He denies anything hurting. [facility] Medical History Asthma Diabetes mellitus type 1 Diabetic ketoacidosis associated with type 1 diabetes mellitus femur surgery GERD (gastroesophageal reflux disease) Hypokalemia Kidney disease Lower extremity edema Nausea and vomiting Non-smoker Noncompliance Nonhealing surgical wound Psychosocial problem Severe protein-calorie malnutrition Sinus tachycardia seen on monitoring coordinator Ulcer of leg, chronic Wound of left lower extremity Home Medications blood sugar diagnostic (OneTouch Verio test strips) #200 ea 09/08/21 [Rx Last Taken Unknown] pen needle, diabetic 32 gauge x 5/32 (BD Ultra-Fine Lorin Pen Needle) #360 ea 09/08/21 [Rx Last Taken Unknown] flash glucose sensor (FreeStyle Niru 14 Day Sensor kit) #2 ea 10/11/21 [Rx Last Taken Unknown] insulin lispro 100 unit/mL subcutaneous pen (Humalog KwikPen (U-100) Insulin) 25 unit subcut TIDAC DM 07/24/22 [History Last Taken Unknown] insulin lispro 100 unit/mL subcutaneous pen (Humalog KwikPen (U-100) Insulin) See Protocol subcut ACHS DM 07/24/22 [History Last Taken Unknown] colchicine 0.6 mg tablet 0.6 mg PO BID 09/17/22 [History Last Taken Unknown] rivaroxaban 20 mg tablet (Xarelto) 20 mg PO DAILY 09/17/22 [History Last Taken Unknown] insulin glargine-yfgn 100 unit/mL (3 mL) subcutaneous pen 16 unit subcut BID 12/19/22 [History Last Taken Unknown] Allergy/AdvReac Type Severity Reaction Status Date / Time Milk Containing Products AdvReac Diarrhea Verified 12/19/22 01:17 Family History Father Polysubstance overdose Patient father young secondary to OD. Mother Iron deficiency anemia Other Asthma CVA (cerebral vascular accident) Diabetes Hypertension Thyroid disorder Surgical History H/O right knee surgery History of surgery on extremity Hx of knee surgery Social History housing: other details: Lives with his grandmother, aunt and mother. Smoking Status: Never smoker alcohol intake: current alcohol intake frequency: a few times a month substance use type: does not use ROS ROS ED Review of Systems ROS Unobtainable: due to mental status EXAM Physical Exam Const Vital Signs: 12/19/22 01:11 12/19/22 01:16 12/19/22 02:55 Temperature 98.2 F Temperature Source Temporal Pulse Rate 100 100 110 H Respiratory Rate 16 33 H 26 H Blood Pressure 130/96 H 122/69 H Blood Pressure Mean 107 86 Pulse Ox 99 98 98 Oxygen Delivery Method Room Air Room Air Room Air Positive well nourished and well developed Constitutional Narrative: Lethargic alerts to voice. Moaning, does not speak clearly. General Appearance ED: well developed HEENT Reports moist mucous membranes normocephalic and atraumatic Eyes PERRL and EOMs intact bilaterally Neck full ROM and supple Chest Wall inspection of chest normal and palpation of chest normal Resp clear to auscultation bilaterally Resp Narrative: Tachypneic with clear lungs Cardio regular rate, regular rhythm and no murmurs Rate: tachycardic GI non-tender and non-distended Auscultation: normoactive bowel sounds Palpation: soft Back/Spine no CVA tenderness General Back: other FROM Extremity normal to inspection General Extremety ED: Negative for edema, pulses abnormal or tenderness General Extremity: Negative for edema or pulses abnormal Neuro oriented x3, CN's II-XII intact bilaterally and no sensory deficits noted [place] Coma Scale: document GCS findings To Voice Obeys Commands Incomprehensible 11 Sensorium / Orientation: awake, alert and orientation impaired Motor Exam: general weakness Skin no rashes or lesions noted and no wounds MDM MDM MDM Narrative Medical decision making narrative: Labs confirm patient is in DKA, his bicarb is only 3, blood sugar 657, large serum ketones, and a significant leukocytosis. His level of hyponatremia is appropriate for the level of his blood sugar. His pH is very low at 6.87, consistent with all of this. Discussed with Dr. Momin with intensive care who agrees with putting him on a bicarb drip at 150 cc/h. I did a chest x-ray, 1 view on my interpretation is negative for any pneumonia, radiology in agreement. Performed a CT of his head due to the potential for injury since he fell and is altered, that appears to be normal and radiology read it as such. My interpretation of the CT agrees with that of the radiologist. Given that his DKA is significant, central line was placed emergency department see the procedure note. Consent was obtained from the grandmother. Lab Data Attestation: I reviewed the patient's lab results. Labs: Laboratory Results - last 24 hr 12/19/22 12/19/22 12/19/22 01:36 01:36 01:36 WBC 31.6 H* RBC 5.62 Hgb 14.8 Hct 47.3 MCV 84.2 MCH 26.3 L MCHC 31.3 L RDW Std Deviation 41.8 RDW Coeff of Rabia 13.7 Plt Count 669 H MPV 9.5 Immature Gran % (Auto) 4.600 H Neut % (Auto) 63.3 Lymph % (Auto) 21.4 Barry % (Auto) 9.4 Eos % (Auto) 0.3 Baso % (Auto) 1.0 Absolute Neuts (auto) 20.0 H Absolute Lymphs (auto) 6.76 H Nucleated RBC % 0 Diff Path Review May foll Platelet Estimate MKD INC Sodium 127 L Potassium 5.0 Chloride 97 L Carbon Dioxide 3.0 L* Anion Gap 27 H BUN 23 H Creatinine 1.37 H Estim Creat Clear Calc 90.48 Est GFR (MDRD) Af Amer 84 Est GFR (MDRD) Non-Af 69 BUN/Creatinine Ratio 16.8 Glucose 657 H* Hemoglobin A1c Serum Osmolality Lactic Acid Calcium 10.0 Phosphorus Magnesium Total Bilirubin 0.60 AST 21 ALT 31 Alkaline Phosphatase 203 H Total Protein 8.4 H Albumin 4.1 Globulin 4.3 H Albumin/Globulin Ratio 1.0 Urine Color Urine Clarity Urine pH Ur Specific [place] Urine Protein Urine Glucose (UA) Urine Ketones Urine Occult Blood Urine Nitrite Urine Bilirubin Urine Urobilinogen Ur Leukocyte Esterase Urine RBC Urine WBC Ur Squamous Epith Cells Amorphous Sediment Urine Bacteria Urine Mucus Ethyl Alcohol < 3.0 Acetone Level LARGE H POC Glucose 12/19/22 12/19/22 12/19/22 01:36 01:36 01:36 WBC RBC Hgb Hct MCV MCH MCHC RDW Std Deviation RDW Coeff of Rabia Plt Count MPV Immature Gran % (Auto) Neut % (Auto) Lymph % (Auto) Barry % (Auto) Eos % (Auto) Baso % (Auto) Absolute Neuts (auto) Absolute Lymphs (auto) Nucleated RBC % Diff Path Review Platelet Estimate Sodium Potassium Chloride Carbon Dioxide Anion Gap BUN Creatinine Estim Creat Clear Calc Est GFR (MDRD) Af Amer Est GFR (MDRD) Non-Af BUN/Creatinine Ratio Glucose Hemoglobin A1c 12.6 H Serum Osmolality 334 H Lactic Acid Calcium Phosphorus 6.2 H Magnesium 2.0 Total Bilirubin AST ALT Alkaline Phosphatase Total Protein Albumin Globulin Albumin/Globulin Ratio Urine Color Urine Clarity Urine pH Ur Specific [place] Urine Protein Urine Glucose (UA) Urine Ketones Urine Occult Blood Urine Nitrite Urine Bilirubin Urine Urobilinogen Ur Leukocyte Esterase Urine RBC Urine WBC Ur Squamous Epith Cells Amorphous Sediment Urine Bacteria Urine Mucus Ethyl Alcohol Acetone Level POC Glucose 12/19/22 12/19/22 12/19/22 01:52 01:53 02:12 WBC RBC Hgb Hct MCV MCH MCHC RDW Std Deviation RDW Coeff of Rabia Plt Count MPV Immature Gran % (Auto) Neut % (Auto) Lymph % (Auto) Barry % (Auto) Eos % (Auto) Baso % (Auto) Absolute Neuts (auto) Absolute Lymphs (auto) Nucleated RBC % Diff Path Review Platelet Estimate Sodium Potassium Chloride Carbon Dioxide Anion Gap BUN Creatinine Estim Creat Clear Calc Est GFR (MDRD) Af Amer Est GFR (MDRD) Non-Af BUN/Creatinine Ratio Glucose Hemoglobin A1c Serum Osmolality Lactic Acid 2.4 H* Calcium Phosphorus Magnesium Total Bilirubin AST ALT Alkaline Phosphatase Total Protein Albumin Globulin Albumin/Globulin Ratio Urine Color Yellow Urine Clarity Clear Urine pH 5.0 Ur Specific [place] 1.020 Urine Protein 30 H Urine Glucose (UA) 1000 H Urine Ketones 150 A* Urine Occult Blood 25 H Urine Nitrite Negative Urine Bilirubin Negative Urine Urobilinogen Normal Ur Leukocyte Esterase Negative Urine RBC 0 SEEN Urine WBC 0 SEEN Ur Squamous Epith Cells 0 SEEN Amorphous Sediment 1+ Urine Bacteria RARE Urine Mucus 0 SEEN Ethyl Alcohol Acetone Level POC Glucose > 500 H* ABG Data ABG results: ABG 12/19/22 02:12 Specimen Type ART Sample Site R Radial pH 6.87 L* Bicarbonate Actual 2.0 L Total CO2 < 5 Base Excess < -30 L O2 Saturation 97 O2 % 21 ABG pCO2 10.8 L* ABG pO2 158 H Hector Test N/A O2 Delivery Device Room Air Crit Call To/Read Back Yes Blood Gas Notified Whom Dr Hines Radiography Diagnostic Testing: Clinical Impression(s) from Imaging Studies Brain CT 12/19/22 01:35 IMPRESSION: Negative head/brain CT without intravenous contrast. Electronically Signed: Lui Drake MD at 2:59 EST , Chest X-Ray 12/19/22 01:35 IMPRESSION: No radiographic evidence of acute cardiopulmonary disease. Electronically Signed: Lui Draek MD at 2:55 EST , Rhythm Strip Rhythm Strip: Sinus Tach Rate: 100 Ectopy: None EKG Initial EKG: Attestation: I personally reviewed and interpreted this EKG as follows: Interpretation: No Acute Injury Pattern and Sinus Tachycardia (Otherwise normal EKG without signs of hyperkalemia) Procedures Other Procedures Procedure(s): Central Line placement: After informed consent from grandmother, patient was prepped and draped in a sterile fashion at the right subclavian vein site. 16 cm triple-lumen catheter was placed via modified Seldinger technique, finder needle found dark red nonpulsatile blood, was able to pass the catheter without any difficulty, all 3 ports jhon back dark red nonpulsatile blood and flushed without difficulty, sutured in place, a total of 3 cc of 1% plain lidocaine was used for anesthesia at the site of the insertion and suturing. Chlorhexidine disc placed at the site of insertion at the chest. Sterile dressing in place. Confirmed by portable 1 view chest x-ray which my interpretation shows no pneumothorax and good line placement. Critical Care Time Critical Care Time: Yes Critical care time (excluding procedures): 30-74 minutes (45 min, not including procedures), Including time spent:, Discussing w/Patient &/or Family/Registered Account Administrator, Discussing w/Consultants (CCM, Dr. Momin; Hospitalist Dr. Galvan), Arranging Admission or Transfer and Performing Direct Patient Care at Bedside Discharge Plan Dx/Rx/DC Orders Clinical Impression: DKA (diabetic ketoacidosis) Disposition Disposition: Acute Care [facility]
[2022-12-19 01:46] LABS: Absolute Lymphocyte Count 6.76 X10^3/uL (0.83-4.51); Basophil# 0.31 X10^3/uL; Eosinophil# 0.08 X10^3/uL; Eosinophils% 0.3 % (0-5); Hematocrit 47.3 % (40-54); Hemoglobin 14.8 g/dL (13.0-16.5); Lymphocyte # 6.76 X10^3/ul (0.83-4.51); Lymphocyte % 21.4 % (19-41); Mean Corp Hgb Conc 31.3 g/dL (32-36); Mean Corpuscular Hgb 26.3 pg (27.0-32.0); Mean Corpuscular Volume 84.2 fL (80-94); Mean Platelet Vol. 9.5 fl (6.2-12.0); Monocyte# 2.98 X10^3/uL; Monocyte% 9.4 % (0-10); NRBC Flagged by Analyzer 0 % (0-5); Neutrophil # 19.99 X10^3/uL (2.7-7.7); Neutrophil % 63.3 % (47-70); POSITIVE COUNT YES; POSITIVE DIFFERENTIAL YES; POSITIVE MORPHOLOGY YES; Platelet Count 669 K/mm3 (150-450); RBC Distribution Width CV 13.7 % (11.6-14.6); RBC Distribution Width SD 41.8 fl (35.1-43.9); Red Blood Count 5.62 M/mm3 (4.6-6.2)
[2022-12-19] MEDS: 0.9% Normal Saline 1,000 ML 999 ML IV ×2 (01:56→03:54)
[2022-12-19] MEDS: Ondansetron 4 MG/2 ML Vial IV (01:56)
[2022-12-19 02:07] LABS: Differential Indicated SCAN CRITERIA MET; White Blood Count 31.6 K/mm3 (4.4-11.0)
[2022-12-19 02:09] LABS: AST(SGOT) 21 U/L (15-37); Alanine Aminotransfer ALT/SGPT 31 U/L (16-61); Albumin, Serum 4.1 g/dL (3.2-5.0); Alkaline Phosphatase 203 U/L (45-117); Anion Gap 27 (5-15); BUN 23 mg/dL (7-18); BUN/Creat Ratio 16.8 RATIO (10-20); Chloride 97 mmol/L (98-107); Creatinine, Serum 1.37 mg/dL (0.70-1.30); EST Glomerular Filtration Rate 69 mL/min (>60); Est Glom Filt Rate - Afr Amer 84 mL/min (>60); Estimated Creatinine Clearance 90.48 ml/min; Globulin 4.3 g/dL (2.2-4.2); Glucose 657 mg/dL (74-106); Protein, Total 8.4 g/dL (6.4-8.2); Sodium Level 127 mmol/L (136-145)
[2022-12-19 02:13] LABS: Alcohol, Blood (Medical)-Serum < 3.0 mg/dL
[2022-12-19 02:18] LABS: Mucous, Urine 0 SEEN /hpf (<or=2+); Red Blood Cells-Urine 0 SEEN /hpf (0-5); Squamous Epithelial Cells - UA 0 SEEN /hpf (0-5); White Blood Cells 0 SEEN /hpf (0-5)
[2022-12-19 02:19] LABS: Platelet Estimate MKD INC (ADEQ)
[2022-12-19 02:19] LABS: Color, Urine Yellow (Yellow); Glucose, Dipstick 1000 mg/dl (Normal); Leukocyte Esterase-Dipstick Negative /ul (Negative); Nitrite-Dipstick Negative (Negative); Occult Blood-Urine 25 /ul (Negative); Protein-Dipstick 30 mg/dl (Negative); Urine Bilirubin Dipstick Negative (Negative); Urine Clarity Clear (Clear); Urine Urobilinogen Normal (Normal)
[2022-12-19 02:31] LABS: Bedside Glucose > 500 mg/dL (74-106)
[2022-12-19 02:32] LABS: Lactic Acid 2.4 mmol/L (0.4-1.9)
[2022-12-19 02:32] LABS: Ketone-Dipstick 150 mg/dl (Negative)
[2022-12-19 02:34] LABS: Amorphous Sediment 1+; Bacteria RARE /hpf (None Seen)
[2022-12-19] MEDS: Sodium Bicarbonate 8.4% 50 ML Syringe 50 MEQ IV (02:38)
[2022-12-19 03:05] LABS: Base Excess < -30 mmol/L (-2 to +2); Blood Gas Specimen Type ART; FI02 21; O2 Delivery Device Room Air; PO2 158 mmHG (75-100); SITE R Radial; SO2 97 % (95-99); Total Carbon Dioxide < 5 mmol/L; pCO2 10.8 mmHg (35-45); pH 6.87 (7.35-7.45)
--- NOTE | 2022-12-19 03:29 | HP.PCM.HOS_ITS ---
HPI - General General Date of Admission: 12/19/22 Date of Service: 12/19/22 Chief Complaint: Nausea and vomiting HPI Narrative SHIRA STEPHENSON, is a 21 M with a significant history of asthma; type 1 diabetes; pericardial effusion status post pericardiocentesis and pericardial window; DVT; and pulmonary embolism who presented emergency department with nausea and vomiting. Also reported the patient fell. Patient's blood glucose at home was 319 so patient took 19 units of insulin, unclear whether short acting or long- acting insulin. Also patient has been confused History was taken from patient's grandmother and the patient since patient was encephalopathic at the time of history taking. [facility] Medical History Asthma Diabetes mellitus type 1 Diabetic ketoacidosis associated with type 1 diabetes mellitus femur surgery GERD (gastroesophageal reflux disease) Hypokalemia Kidney disease Lower extremity edema Nausea and vomiting Non-smoker Noncompliance Nonhealing surgical wound Psychosocial problem Severe protein-calorie malnutrition Sinus tachycardia seen on diagnostic cardiac sonographer Ulcer of leg, chronic Wound of left lower extremity Home Medications blood sugar diagnostic (OneTouch Verio test strips) #200 ea 09/08/21 [Rx Last Taken Unknown] pen needle, diabetic 32 gauge x 5/32 (BD Ultra-Fine Lorin Pen Needle) #360 ea 09/08/21 [Rx Last Taken Unknown] flash glucose sensor (FreeStyle Niru 14 Day Sensor kit) #2 ea 10/11/21 [Rx Last Taken Unknown] insulin lispro 100 unit/mL subcutaneous pen (Humalog KwikPen (U-100) Insulin) 25 unit subcut TIDAC DM 07/24/22 [History Last Taken Unknown] insulin lispro 100 unit/mL subcutaneous pen (Humalog KwikPen (U-100) Insulin) See Protocol subcut ACHS DM 07/24/22 [History Last Taken Unknown] colchicine 0.6 mg tablet 0.6 mg PO BID 09/17/22 [History Last Taken Unknown] rivaroxaban 20 mg tablet (Xarelto) 20 mg PO DAILY 09/17/22 [History Last Taken Unknown] insulin glargine-yfgn 100 unit/mL (3 mL) subcutaneous pen 16 unit subcut BID 06/03 [History Last Taken Unknown] Allergy/AdvReac Type Severity Reaction Status Date / Time Milk Containing Products AdvReac Diarrhea Verified 12/19/22 01:17 Family History Father Polysubstance overdose Patient father young secondary to OD. Mother Iron deficiency anemia Other Asthma CVA (cerebral vascular accident) Diabetes Hypertension Thyroid disorder Surgical History H/O right knee surgery History of surgery on extremity Hx of knee surgery Social History housing: other details: Lives with his grandmother, aunt and mother. Smoking Status: Never smoker alcohol intake: current alcohol intake frequency: a few times a month substance use type: does not use ROS Review of Systems ROS Unobtainable: other Details: Pertinent positives and pertinent negatives that could be provided by patient's family is as noted in HPI. All other systems were reviewed patient's family did not know or they were negative. Vital Signs Vital Signs Vital Signs: 12/19/22 01:11 12/19/22 01:16 12/19/22 02:55 Temperature 98.2 F Temperature Source Temporal Pulse Rate 100 100 110 H Respiratory Rate 16 33 H 26 H Blood Pressure 130/96 H 122/69 H Blood Pressure Mean 107 86 Pulse Ox 99 98 98 Oxygen Delivery Method Room Air Room Air Room Air Weight Weight: 75 kg Body Mass Index (BMI) 21.8 Physical Exam Narrative Physical exam: General: Rigors; Well-nourished, well-developed. Head: Normocephalic, atraumatic, no tenderness Eyes: Vision is grossly intact. EOMI ENT, no trauma, dry mucous membranes, no rhinorrhea Neck: Nontender, No thyromegaly. CVS: Regular rate and rhythm. S1-S2 present. No murmur, gallop or rub. Respiratory : Tachypnea; clear to auscultation bilaterally, chest wall no ntender, no wheezing Abdomen: Soft, nontender, nondistended, normal bowel sounds, no masses : Deferred Back: Nontender, no CVA tenderness, no midline spinal tenderness, deformities, step-offs Extremities: Nontender full range of motion, no trauma Skin: Normal color, no trauma, abrasions Neuro: Alert, confused. Psychiatry: Normal mood. Normal affect. Not depressed. Not anxious. Results Lab / Micro Data Result Diagrams: 12/19/22 01:36 12/19/22 01:36 Labs: Laboratory Results - last 24 hr 12/19/22 01:36: WBC 31.6 H*, RBC 5.62, Hgb 14.8, Hct 47.3, MCV 84.2, MCH 26.3 L, MCHC 31.3 L, RDW Std Deviation 41.8, RDW Coeff of Rabia 13.7, Plt Count 669 H, MPV 9.5, Immature Gran % (Auto) 4.600 H, Neut % (Auto) 63.3, Lymph % (Auto) 21.4, [place] % (Auto) 9.4, Eos % (Auto) 0.3, Baso % (Auto) 1.0, Absolute Neuts (auto) 20.0 H, Absolute Lymphs (auto) 6.76 H, Nucleated RBC % 0, Diff Path Review March, Platelet Estimate MKD INC 12/19/22 01:36: Sodium 127 L, Potassium 5.0, Chloride 97 L, Carbon Dioxide 3.0 L*, Anion Gap 27 H, BUN 23 H, Creatinine 1.37 H, Estim Creat Clear Calc 90.48, Est GFR (MDRD) Af Amer 84, Est GFR (MDRD) Non-Af 69, BUN/Creatinine Ratio 16.8, Glucose 657 H*, Calcium 10.0, Total Bilirubin 0.60, AST 21, ALT 31, Alkaline Phosphatase 203 H, Total Protein 8.4 H, Albumin 4.1, Globulin 4.3 H, Albumin/Globulin Ratio 1.0 12/19/22 01:36: Ethyl Alcohol < 3.0, Acetone Level LARGE H 12/19/22 01:52: POC Glucose > 500 H* 12/19/22 01:53: Lactic Acid 2.4 H* 12/19/22 02:12: Urine Color Yellow, Urine Clarity Clear, Urine pH 5.0, Ur Specific [place] 1.020, Urine Protein 30 H, Urine Glucose (UA) 1000 H, Urine Ketones 150 A*, Urine Occult Blood 25 H, Urine Nitrite Negative, Urine Bilirubin Negative, Urine Urobilinogen Normal, Ur Leukocyte Esterase Negative, Urine RBC 0 SEEN, Urine WBC 0 SEEN, Ur Squamous Epith Cells 0 SEEN, Amorphous Sediment 1+, Urine Bacteria RARE, Urine Mucus 0 SEEN ABG Data ABG results: ABG 12/19/22 02:12 Specimen Type ART Sample Site R Radial pH 6.87 L* Bicarbonate Actual 2.0 L Total CO2 < 5 Base Excess < -30 L O2 Saturation 97 O2 % 21 ABG pCO2 10.8 L* ABG pO2 158 H Hector Test N/A O2 Delivery Device Room Air Crit Call To/Read Back Yes Blood Gas Notified Whom Dr Hines Rhythm Strip Rhythm Strip: Sinus Tach Rate: 100 Ectopy: None Radiology Impression Brain CT 12/19/22 01:35 IMPRESSION: Negative head/brain CT without intravenous contrast. Electronically Signed: Lui Drake MD at 2:59 EST , Chest X-Ray 12/19/22 01:35 IMPRESSION: No radiographic evidence of acute cardiopulmonary disease. Electronically Signed: Lui Drake MD at 2:55 EST , Assessment & Plan Assessment/Plan (1) DKA (diabetic ketoacidosis): (2) Acute metabolic encephalopathy: PLAN: Plan Acute metabolic encephalopathy secondary to DKA acetone level: Large. Anion gap of 27 Initial glucose of 657 on BMP. Sodium 127, . Corrected sodium 136 Insulin drip started from emergency department; continue Completed IV bolus of normal saline and normal saline infusion Because of potassium of 3.0 we will start patient on half-normal saline with potassium; and in addition we will give patient potassium chloride 40 mEq IV. BMP every 4 hours to calculate anion gap. N.p.o. for now Admitted to ICU ICU electrolyte protocol ordered A1c on 12/28/2021 was 10.0. Repeat A1c. Bicarbonate on presentation was 3.0. ED doctor discussed the case with cookie breaker and patient was started on bicarb drip. Bicarb drip continued. Leukocytosis White count 31,600. Chest x-ray independently interpreted showed no acute cardiopulmonary disease and I agree with radiologist interpretation. Urinalysis unremarkable. Brain CT is nonacute. We will get blood culture. Will start patient empirically on Zosyn. Trend CBC. Hypokalemia Potassium presentation was 3.0. Replace. Trend BMP and CMP. History of DVT and PE On home Xarelto. While n.p.o. on insulin drip. Patient on therapeutic dose of Lovenox. DVT prophylaxis: Not indicated as patient restarted on Lovenox therapeutic dose. Charges/Coding Visit Charges Inpatient E&M: 56767 Init Hosp L3
[2022-12-19 04:15] LABS: Bedside Glucose > 500 mg/dL (74-106)
--- NOTE | 2022-12-19 04:37 | RAD_ITS ---
EXAM: XR CHEST, 1 VIEW CLINICAL INDICATION: line placement line placement TECHNIQUE: Frontal view of the chest. This report was created using [employer] report generation technology. COMPARISON: Exam done at 0223 hours. FINDINGS: LUNGS AND PLEURAL SPACES: Unremarkable. No consolidation or edema. No pneumothorax. No effusion. HEART: Unremarkable. Cardiac silhouette not enlarged. MEDIASTINUM: Central airways and mediastinal contour are unremarkable. BONES/JOINTS: Unremarkable. SOFT TISSUES: Unremarkable. TUBES, LINES AND DEVICES: There is a right subclavian central venous catheter with its tip overlying superior vena cava. RAD/CXR for Line Placement IMPRESSION: 1. Central line is in adequate position. 2. No evidence for acute cardiopulmonary pathology. Electronically Signed: Lui Drake MD at 5:06 EST Reading Location ID and State: [facility] / [place] , Service support ,
[2022-12-19 04:38] LABS: Phosphorus 6.2 mg/dL (2.5-4.9)
[2022-12-19 04:53] LABS: Osmolality, Serum 334 mOsm/KG (275-295)
[2022-12-19] MEDS: Potassium Chloride 40 MEQ in 0.45% Normal Saline 1,000 ML 250 MEQ IV (05:52)
[2022-12-19 05:56] LABS: Reflex Lactate? Y
[2022-12-19 05:58] LABS: Anion Gap 25 (5-15); BUN 27 mg/dL (7-18); BUN/Creat Ratio 23.1 RATIO (10-20); Calcium,Total 9.4 mg/dL (8.5-10.1); Chloride 106 mmol/L (98-107); Creatinine, Serum 1.17 mg/dL (0.70-1.30); EST Glomerular Filtration Rate 83 mL/min (>60); Est Glom Filt Rate - Afr Amer 100 mL/min (>60); Estimated Creatinine Clearance 105.95 ml/min; Glucose 431 mg/dL (74-106); Potassium 3.9 mmol/L (3.5-5.1); Sodium Level 135 mmol/L (136-145)
[2022-12-19] MEDS: 0.9% Normal Saline 1,000 ML 500 ML IV (06:07)
[2022-12-19] MEDS: Potassium Chloride 10mEq/100mL 10 MEQ/100 ML IV.SOLN. 100 MEQ IV BOLUS ×4 (06:11→09:34)
[2022-12-19] MEDS: Enoxaparin 80 MG/0.8 ML Syringe 75 MG SC (06:11)
[2022-12-19] MEDS: 0.9% Saline Lock 10 ML Syringe IV ×2 (06:46→21:41)
[2022-12-19 07:08] LABS: Lactic Acid 1.4 mmol/L (0.4-1.9)
[2022-12-19 07:12] LABS: Anion Gap 24 (5-15); BUN 26 mg/dL (7-18); BUN/Creat Ratio 24.8 RATIO (10-20); Calcium,Total 8.9 mg/dL (8.5-10.1); Chloride 109 mmol/L (98-107); Creatinine, Serum 1.05 mg/dL (0.70-1.30); EST Glomerular Filtration Rate 94 mL/min (>60); Est Glom Filt Rate - Afr Amer 114 mL/min (>60); Glucose 335 mg/dL (74-106); Potassium 3.9 mmol/L (3.5-5.1); Sodium Level 137 mmol/L (136-145)
[2022-12-19 07:38] LABS: Hemoglobin A1c 12.6 % (3.8-5.6)
--- NOTE | 2022-12-19 07:43 | PN.HOSP_ITS ---
Objective Data Objective Data Vital Signs: Vital Signs Temp Pulse Resp BP Pulse Ox O2 Del Method 95.9 F L 119 H 20 H 107/73 100 Room Air 12/19/22 07:00 12/19/22 07:00 12/19/22 07:00 12/19/22 07:00 12/19/22 07:00 12/19/22 07:00 Oxygen Delivery Method Room Air Weight: 71.6 kg Body Mass Index (BMI) 20.2 Intake & Output: Intake and Output for Last 24 Hours 12/17/22 12/18/22 12/19/22 23:59 23:59 23:59 Intake Total 2116.92 / 2116.92 Output Total 2600 / 2600 Balance -483.08 / -483.08 Lab / Micro Data Result Diagrams: 12/19/22 01:36 12/19/22 06:27 Labs: Laboratory Results - last 24 hr 12/19/22 01:36: WBC 31.6 H*, RBC 5.62, Hgb 14.8, Hct 47.3, MCV 84.2, MCH 26.3 L, MCHC 31.3 L, RDW Std Deviation 41.8, RDW Coeff of Rabia 13.7, Plt Count 669 H, MPV 9.5, Immature Gran % (Auto) 4.600 H, Neut % (Auto) 63.3, Lymph % (Auto) 21.4, [place] % (Auto) 9.4, Eos % (Auto) 0.3, Baso % (Auto) 1.0, Absolute Neuts (auto) 20.0 H, Absolute Lymphs (auto) 6.76 H, Nucleated RBC % 0, Diff Path Review May johnny, Platelet Estimate MKD INC 12/19/22 01:36: Sodium 127 L, Potassium 5.0, Chloride 97 L, Carbon Dioxide 3.0 L*, Anion Gap 27 H, BUN 23 H, Creatinine 1.37 H, Estim Creat Clear Calc 90.48, Est GFR (MDRD) Af Amer 84, Est GFR (MDRD) Non-Af 69, BUN/Creatinine Ratio 16.8, Glucose 657 H*, Calcium 10.0, Total Bilirubin 0.60, AST 21, ALT 31, Alkaline Phosphatase 203 H, Total Protein 8.4 H, Albumin 4.1, Globulin 4.3 H, Albumin/Globulin Ratio 1.0 12/19/22 01:36: Ethyl Alcohol < 3.0, Acetone Level LARGE H 12/19/22 01:36: Phosphorus 6.2 H, Magnesium 2.0 12/19/22 01:36: Serum Osmolality 334 H 12/19/22 01:36: Hemoglobin A1c 12.6 H 12/19/22 01:52: POC Glucose > 500 H* 12/19/22 01:53: Lactic Acid 2.4 H* 12/19/22 02:12: Urine Color Yellow, Urine Clarity Clear, Urine pH 5.0, Ur Specific [place] 1.020, Urine Protein 30 H, Urine Glucose (UA) 1000 H, Urine Ke tones 150 A*, Urine Occult Blood 25 H, Urine Nitrite Negative, Urine Bilirubin Negative, Urine Urobilinogen Normal, Ur Leukocyte Esterase Negative, Urine RBC 0 SEEN, Urine WBC 0 SEEN, Ur Squamous Epith Cells 0 SEEN, Amorphous Sediment 1+, Urine Bacteria RARE, Urine Mucus 0 SEEN 12/19/22 03:52: POC Glucose > 500 H* 12/19/22 05:07: Sodium 135 L, Potassium 3.9, Chloride 106, Carbon Dioxide 4.0 L* , Anion Gap 25 H, BUN 27 H, Creatinine 1.17, Estim Creat Clear Calc 105.95, Est GFR (MDRD) Af Amer 100, Est GFR (MDRD) Non-Af 83, BUN/Creatinine Ratio 23.1 H, Glucose 431 H, Calcium 9.4 12/19/22 06:27: Sodium 137, Potassium 3.9, Chloride 109 H, Carbon Dioxide 4.0 L* , Anion Gap 24 H, BUN 26 H, Creatinine 1.05, Estim Creat Clear Calc 112.70, Est GFR (MDRD) Af Amer 114, Est GFR (MDRD) Non-Af 94, BUN/Creatinine Ratio 24.8 H, Glucose 335 H, Calcium 8.9 12/19/22 06:27: Lactic Acid 1.4 ABG Data ABG results: ABG 12/19/22 02:12 Specimen Type ART Sample Site R Radial pH 6.87 L* Bicarbonate Actual 2.0 L Total CO2 < 5 Base Excess < -30 L O2 Saturation 97 O2 % 21 ABG pCO2 10.8 L* ABG pO2 158 H Hector Test N/A O2 Delivery Device Room Air Crit Call To/Read Back Yes Blood Gas Notified Whom Dr Hines Radiography Diagnostic Testing: Radiology Impression Brain CT 12/19/22 01:35 IMPRESSION: Negative head/brain CT without intravenous contrast. Electronically Signed: Lui Drake MD at 2:59 EST , Chest X-Ray 12/19/22 01:35 IMPRESSION: No radiographic evidence of acute cardiopulmonary disease. Electronically Signed: Lui Drake MD at 2:55 EST , Chest X-Ray 12/19/22 04:37 IMPRESSION: 1. Central line is in adequate position. 2. No evidence for acute cardiopulmonary pathology. Electronically Signed: Lui Drake MD at 5:06 EST , Rhythm Strip Rhythm Strip: Sinus Tach Rate: 100 Ectopy: None Physical Exam Narrative GENERAL: cooperative HEENT: Atraumatic; normocephalic EYES; Anicteric, Normal Conjunctiva NECK; supple, normal thyroid, RESPIRATORY: Diminished to auscultation CARDIOVASCULAR: Regular S1 S2, tachycardic GI: soft, normoactive bowel sounds, : No Renal angle tenderness; EXTREMITIES: No edema, no clubbing, MUSCULOSKELETAL: no muscle wasting NEURO: Awake; no lateralizing signs. SKIN: No Rash PSYCH; Flat affect Assessment & Plan Assessment/Plan (1) DKA (diabetic ketoacidosis): (2) Acute metabolic encephalopathy: PLAN: Plan Patient is a 21-year-old gentleman with history of diabetes mellitus type 1 who was brought to the emergency department with altered mental status as well as tachypnea 1. Acute metabolic encephalopathy ? Secondary to diabetic ketoacidosis. Patient has been admitted to the intensive care unit for management of underlying etiology 2. Diabetic ketoacidosis ? Patient managed with aggressive IV fluid resuscitation correction of electrolytes IV insulin with every 4 BMP ordered Severe metabolic acidosis ? Secondary to patient DKA patient is on bicarb drip 4. Leukocytosis ? Chest x-ray did not reveal any evidence of pneumonia do suspect stress reaction patient was however started on empiric antibiotic therapy with Zosyn we will continue. Repeat CBC with differential ordered 5. Hypokalemia ? Corrected per protocol with serial monitoring of potassium ordered 6. Recent history of DVT and pulmonary embolism ? Patient is on systemic anticoagulation with rivaroxaban held started on therapeutic Lovenox Critical time spent in the patient's overall evaluation,decision-making process, review of diagnostic data, adjustment of management, discussion with other providers, nursing nursing and ancillary staff involved in patient's care documentation, 45 minutes minutes Charges/Coding Procedures Hospitalists Procedures: [address] [facility] Care 1st Hr Reason for Visit Reason for Visit: Diagnoses Type 2 diabetes mellitus with ketoacidosis without coma (12/19/22) Metabolic encephalopathy (12/19/22)
[2022-12-19 08:25] LABS: Bedside Glucose 361 mg/dL (74-106)
[2022-12-19 08:25] LABS: Bedside Glucose 326 mg/dL (74-106)
[2022-12-19 08:35] LABS: Bedside Glucose 290 mg/dL (74-106)
[2022-12-19 09:26] LABS: Bedside Glucose 244 mg/dL (74-106)
[2022-12-19] MEDS: Dext 5%-0.45% NS 1,000 ML 150 ML IV ×2 (09:32→16:02)
[2022-12-19 10:25] LABS: Bedside Glucose 258 mg/dL (74-106)
[2022-12-19 10:43] LABS: Anion Gap 18 (5-15); BUN 20 mg/dL (7-18); BUN/Creat Ratio 20.4 RATIO (10-20); Calcium,Total 8.5 mg/dL (8.5-10.1); Chloride 112 mmol/L (98-107); Creatinine, Serum 0.98 mg/dL (0.70-1.30); EST Glomerular Filtration Rate 102 mL/min (>60); Est Glom Filt Rate - Afr Amer 123 mL/min (>60); Estimated Creatinine Clearance 120.75 ml/min; Glucose 280 mg/dL (74-106); Potassium 4.4 mmol/L (3.5-5.1); Sodium Level 138 mmol/L (136-145)
[2022-12-19 11:25] LABS: Bedside Glucose 280 mg/dL (74-106)
[2022-12-19 12:11] LABS: Pathologist Review Reviewed
[2022-12-19 12:25] LABS: Bedside Glucose 243 mg/dL (74-106)
[2022-12-19 13:30] LABS: Bedside Glucose 260 mg/dL (74-106)
[2022-12-19 14:20] LABS: Bedside Glucose 249 mg/dL (74-106)
[2022-12-19 14:21] LABS: Anion Gap 11 (5-15); BUN 18 mg/dL (7-18); BUN/Creat Ratio 15.9 RATIO (10-20); Calcium,Total 8.3 mg/dL (8.5-10.1); Chloride 109 mmol/L (98-107); Creatinine, Serum 1.13 mg/dL (0.70-1.30); EST Glomerular Filtration Rate 86 mL/min (>60); Est Glom Filt Rate - Afr Amer 104 mL/min (>60); Estimated Creatinine Clearance 104.72 ml/min; Glucose 270 mg/dL (74-106); Potassium 3.4 mmol/L (3.5-5.1); Sodium Level 137 mmol/L (136-145)
[2022-12-19] MEDS: Potassium Chloride 20mEq/100mL 20 MEQ/100 ML IV.SOLN. 100 MEQ IV BOLUS ×2 (16:02→17:05)
[2022-12-19 16:25] LABS: Bedside Glucose 234 mg/dL (74-106)
[2022-12-19] MEDS: KCL 20MEQ in 0.45%NS 20 MEQ/1,000 ML IV.SOLN. 100 MEQ IV (17:26)
--- NOTE | 2022-12-19 18:00 | CASEMGMT ---
VERONA FONTANEZ Assessment: RN CM to room to meet with patient for initial transition planning/care coordination assessment. RN HUSEYIN introduced self and role at [facility]. Patient resting in bed. Noted on RN handoff, pt was drowsy earlier and oriented to person and place. Pt currently awake/alert and able to answer questions appropriately. ?Care providers, pharmacy, and demographics verified. PCP: Dr Reyes. Hosp f/u appt and transportation arranged for pt after last discharge and it was confirmed pt did make it to the appt on 09/29/22. Pt also had an appt w/Dr Reyes scheduled on March 23, 2023 to get established as a new patient. Specialists: none? Preferred Pharmacy: [facility], [place]. Pt states his grandmother walks to [place] to moss pick[place] his medications. Insurance: [employer] Prescription Benefit: yes ? Living Will/HPOA: none? LNOK: mother-Ines, grandmother-Ines, brother-Ezekiel, aunt-Sobai, cousin-Krishan Living Arrangements: Patient lives with grandmother, mother, brother, cousin, and aunt in a 2 story home. ?Patient stays in basement with grandmother. ?12 steps for patient with railing. ?Patient states he is independent and able to ambulate stairs. ? Transportation: none, ?grandmother was providing rides but does not currently have vehicle. Pt has access to transportation through [employer]: [facility]: [phone] and also aware of [facility] van transp to [facility] services. DME/HHC: Patient states he has cane and walker at home, but does not typically use. ?Patient has functioning glucometer with supplies and has enough insulin and medications. He states he checks his BS's 3-4 x's/day. ? Pt states he wishes to discharge home when medically ready. He declines need for HHC. Pt agreeable to having CM arrange f/u appt w/Dr Reyes and transportation to appt with [employer] insurance: [facility]. Plan: Patient to discharge home with family support and follow-up plans in place. ? CM to schedule appt w/PCP and arrange for transportation. Ena MONTEZ RN, CM
[2022-12-19] MEDS: Rivaroxaban 20 MG Tablet PO (18:03)
[2022-12-19 21:35] LABS: Bedside Glucose 399 mg/dL (74-106)
[2022-12-19] MEDS: Insulin Glargine-YFGN 100 UNIT/ML Pen 20 UNIT SC (21:43)
[2022-12-19] MEDS: Insulin Lispro 100 UNIT/ML INSULN.PEN SC (21:43)
[2022-12-19] MEDS: Acetaminophen 325 MG Tablet 650 MG PO (22:03)
--- NOTE | 2022-12-19 22:20 | NURSING ---
12/19/22@2215- F/C IRRIGATED DUE TO PT C/O PRESSURE AND BURNING WITH URINATION. IRRIGATED WITH 30 ML OF STERILE WATER. WILL CONTINUE TO MONITOR.
[2022-12-20] VITALS (17 sets, daily range): BP systolic 90–112; BP diastolic 49–68; PULSE 116–131; RESP 15–22; TEMP 36.6–38.3; O2SAT 97–100
[2022-12-20] MEDS: KCL 20MEQ in 0.45%NS 20 MEQ/1,000 ML IV.SOLN. 100 MEQ IV (03:26)
[2022-12-20 05:57] LABS: Absolute Lymphocyte Count 1.34 X10^3/uL (0.83-4.51); Absolute Neutrophil Count 3.8 X10^3/uL (2.0-7.7); Basophil# 0.01 X10^3/uL; Basophil% 0.2 % (0-1); Eosinophil# 0.05 X10^3/uL; Eosinophils% 0.9 % (0-5); Hematocrit 32.2 % (40-54); Hemoglobin 11.1 g/dL (13.0-16.5); Lymphocyte # 1.34 X10^3/ul (0.83-4.51); Lymphocyte % 23.4 % (19-41); Mean Corp Hgb Conc 34.5 g/dL (32-36); Mean Corpuscular Hgb 26.4 pg (27.0-32.0); Mean Corpuscular Volume 76.5 fL (80-94); Mean Platelet Vol. 8.6 fl (6.2-12.0); Monocyte# 0.55 X10^3/uL; Monocyte% 9.6 % (0-10); NRBC Flagged by Analyzer 0 % (0-5); Neutrophil # 3.76 X10^3/uL (2.7-7.7); Neutrophil % 65.6 % (47-70); Platelet Count 267 K/mm3 (150-450); RBC Distribution Width CV 14.3 % (11.6-14.6); RBC Distribution Width SD 38.5 fl (35.1-43.9); Red Blood Count 4.21 M/mm3 (4.6-6.2); White Blood Count 5.7 K/mm3 (4.4-11.0)
[2022-12-20 06:14] LABS: ALB/GLOB Ratio 0.8 RATIO (0.9-2.4); AST(SGOT) 5 U/L (15-37); Alanine Aminotransfer ALT/SGPT 17 U/L (16-61); Albumin, Serum 2.7 g/dL (3.2-5.0); Alkaline Phosphatase 115 U/L (45-117); Anion Gap 8 (5-15); BUN 10 mg/dL (7-18); BUN/Creat Ratio 10.4 RATIO (10-20); Chloride 106 mmol/L (98-107); Creatinine, Serum 0.96 mg/dL (0.70-1.30); EST Glomerular Filtration Rate 104 mL/min (>60); Est Glom Filt Rate - Afr Amer 125 mL/min (>60); Estimated Creatinine Clearance 131.19 ml/min; Globulin 3.2 g/dL (2.2-4.2); Glucose 336 mg/dL (74-106); Potassium 3.1 mmol/L (3.5-5.1); Protein, Total 5.9 g/dL (6.4-8.2); Sodium Level 137 mmol/L (136-145)
--- NOTE | 2022-12-20 07:19 | PCM.PN.HOSP ---
Reason for Visit Reason for Visit: Diagnoses Type 2 diabetes mellitus with ketoacidosis without coma (12/19/22) Metabolic encephalopathy (12/19/22) Subjective Subjective Patient out of DKA has hyperglycemia. Subsequent adjustment made to patient insulin regimen Objective Data Objective Data Vital Signs: Vital Signs Temp Pulse Resp BP Pulse Ox O2 Del Method 100.1 F H 117 H 15 96/52 L 99 Room Air 12/20/22 06:00 12/20/22 06:00 12/20/22 06:00 12/20/22 06:00 12/20/22 06:00 12/20/22 06:00 Oxygen Delivery Method Room Air Weight: 76.2 kg Body Mass Index (BMI) 20.2 Intake & Output: Intake and Output for Last 24 Hours 12/18/22 12/19/22 12/20/22 23:59 23:59 23:59 Intake Total 8472.02 / 8472.02 1851.67 / 1851.67 Output Total 6400 / 6400 1300 / 1300 Balance 2072.02 / 2072.02 551.67 / 551.67 Lab / Micro Data Result Diagrams: 12/20/22 05:47 12/20/22 05:47 Labs: Laboratory Results - last 24 hr 12/19/22 01:36: Diff Path Review Reviewed 12/19/22 01:36: Hemoglobin A1c 12.6 H 12/19/22 05:56: POC Glucose 361 H 12/19/22 07:00: POC Glucose 326 H 12/19/22 08:09: POC Glucose 290 H 12/19/22 09:04: POC Glucose 244 H 12/19/22 10:03: POC Glucose 258 H 12/19/22 10:10: Sodium 138, Potassium 4.4, Chloride 112 H, Carbon Dioxide 8.0 L*, Anion Gap 18 H, BUN 20 H, Creatinine 0.98, Estim Creat Clear Calc 120.75, Est GFR (MDRD) Af Amer 123, Est GFR (MDRD) Non-Af 102, BUN/Creatinine Ratio 20.4 H, Glucose 280 H, Calcium 8.5 12/19/22 11:07: POC Glucose 280 H 12/19/22 12:06: POC Glucose 243 H 12/19/22 13:09: POC Glucose 260 H 12/19/22 14:00: Sodium 137, Potassium 3.4 L, Chloride 109 H, Carbon Dioxide 17.0 L, Anion Gap 11, BUN 18, Creatinine 1.13, Estim Creat Clear Calc 104.72, Est GFR (MDRD) Af Amer 104, Est GFR (MDRD) Non-Af 86, BUN/Creatinine Ratio 15.9, Glucose 270 H, Calcium 8.3 L 12/19/22 14:01: POC Glucose 249 H 12/19/22 16:04: POC Glucose 234 H 12/19/22 21:13: POC Glucose 399 H 12/20/22 05:47: Sodium 137, Potassium 3.1 L, Chloride 106, Carbon Dioxide 23.0, Anion Gap 8, BUN 10, Creatinine 0.96, Estim Creat Clear Calc 131.19, Est GFR (MDRD) Af Amer 125, Est GFR (MDRD) Non-Af 104, BUN/Creatinine Ratio 10.4, Glucose 336 H, Calcium 8.0 L, Total Bilirubin 0.70, AST 5 L, ALT 17, Alkaline Phosphatase 115, Total Protein 5.9 L, Albumin 2.7 L, Globulin 3.2, Albumin/Globulin Ratio 0.8 L 12/20/22 05:47: WBC 5.7, RBC 4.21 L, Hgb 11.1 L, Hct 32.2 L, MCV 76.5 L D, MCH 26.4 L, MCHC 34.5 D, RDW Std Deviation 38.5, RDW Coeff of Rabia 14.3, Plt Count 267, MPV 8.6, Immature Gran % (Auto) 0.300, Neut % (Auto) 65.6, Lymph % (Auto) 23.4, [place] % (Auto) 9.6, Eos % (Auto) 0.9, Baso % (Auto) 0.2, Absolute Neuts (auto) 3.8, Absolute Lymphs (auto) 1.34, Nucleated RBC % 0 Rhythm Strip Rhythm Strip: Sinus Tach Rate: 100 Ectopy: None Physical Exam Narrative GENERAL: cooperative HEENT: Atraumatic; normocephalic EYES; Anicteric, Normal Conjunctiva NECK; supple, normal thyroid, RESPIRATORY: Diminished to auscultation CARDIOVASCULAR: Regular S1 S2, tachycardic GI: soft, normoactive bowel sounds, : No Renal angle tenderness; EXTREMITIES: No edema, no clubbing, MUSCULOSKELETAL: no muscle wasting NEURO: Awake; no lateralizing signs. SKIN: No Rash PSYCH; Flat affect Assessment & Plan Assessment/Plan (1) DKA (diabetic ketoacidosis): (2) Acute metabolic encephalopathy: PLAN: Plan Patient is a 21-year-old gentleman with history of diabetes mellitus type 1 who was brought to the emergency department with altered mental status as well as tachypnea 1. Acute metabolic encephalopathy ? Secondary to diabetic ketoacidosis. Patient has been admitted to the intensive care unit for management of underlying etiology ? 12/20/2022; level of sensorium improved patient back to baseline 2. Diabetic ketoacidosis ? Patient managed with aggressive IV fluid resuscitation correction of electrolytes IV insulin with every 4 BMP ordered ? 12/20/2022; DKA resolved patient started on long-acting insulin in addition to his scheduled Premeal insulin with correction factor insulin added 3.Severe metabolic acidosis ? Secondary to patient DKA patient is on bicarb drip ? 12/20/2022 patient bicarb level is back to within normal limits 4. Leukocytosis ? Chest x-ray did not reveal any evidence of pneumonia do suspect stress reaction patient was however started on empiric antibiotic therapy with Zosyn we will continue. Repeat CBC with differential ordered ? 12/20/2022 WBC count back to within normal limits 5. Hypokalemia ? Corrected per protocol with serial monitoring of potassium ordered 6. Recent history of DVT and pulmonary embolism ? Patient is on systemic anticoagulation with rivaroxaban held started on therapeutic Lovenox Time spent in the patient's overall evaluation,decision-making process, review of diagnostic data, adjustment of management, discussion with other providers, nursing nursing and ancillary staff involved in patient's care documentation, 45 minutes minutes Charges/Coding Visit Charges Inpatient E&M: 24909 Subs Hosp L2
--- NOTE | 2022-12-20 08:27 | DS.PCM_ITS ---
Providers Date of Admission: 12/19/22 Date of Discharge: 12/20/22 Primary Care Physician: Dr. Mario Reyes MD Reason For Visit: DKA Diagnosis Discharge Diagnosis (1) DKA (diabetic ketoacidosis): Status: Acute Code(s): E11.10 - Type 2 diabetes mellitus with ketoacidosis without coma (2) Acute metabolic encephalopathy: Status: Resolved Code(s): G93.41 - Metabolic encephalopathy Plan Patient is a 21-year-old gentleman with history of diabetes mellitus type 1 who was brought to the emergency department with altered mental status as well as tachypnea 1. Acute metabolic encephalopathy ? Secondary to diabetic ketoacidosis. Patient has been admitted to the intensive care unit for management of underlying etiology ? 12/20/2022; level of sensorium improved patient back to baseline 2. Diabetic ketoacidosis ? Patient managed with aggressive IV fluid resuscitation correction of electrolytes IV insulin with every 4 BMP ordered ? 12/20/2022; DKA resolved patient started on long-acting insulin in addition to his scheduled Premeal insulin with correction factor insulin added 3.Severe metabolic acidosis ? Secondary to patient DKA patient is on bicarb drip ? 12/20/2022 patient bicarb level is back to within normal limits 4. Leukocytosis ? Chest x-ray did not reveal any evidence of pneumonia do suspect stress reaction patient was however started on empiric antibiotic therapy with Zosyn we will continue. Repeat CBC with differential ordered ? 12/20/2022 WBC count back to within normal limits 5. Hypokalemia ? Corrected per protocol with serial monitoring of potassium ordered 6. Recent history of DVT and pulmonary embolism ? Patient is on systemic anticoagulation with rivaroxaban held started on ther apeutic Lovenox Time spent in the patient's overall evaluation,decision-making process, review of diagnostic data, adjustment of management, discussion with other providers, nursing nursing and ancillary staff involved in patient's care documentation, 45 minutes minutes Medications at Discharge Home Medications blood sugar diagnostic (OneTouch Verio test strips) #200 ea 09/08/21 pen needle, diabetic 32 gauge x 5/32 (BD Ultra-Fine Lorin Pen Needle) #360 ea 09/08/21 flash glucose sensor (FreeStyle Niru 14 Day Sensor kit) #2 ea 10/11/21 insulin lispro 100 unit/mL subcutaneous pen (Humalog KwikPen (U-100) Insulin) 25 unit subcut TIDAC DM 07/24/22 insulin lispro 100 unit/mL subcutaneous pen (Humalog KwikPen (U-100) Insulin) See Protocol subcut ACHS DM 07/24/22 colchicine 0.6 mg tablet 0.6 mg PO BID 09/17/22 rivaroxaban 20 mg tablet (Xarelto) 20 mg PO DAILY 09/17/22 insulin glargine-yfgn 100 unit/mL (3 mL) subcutaneous pen 16 unit subcut BID 12/19/22 insulin glargine-yfgn 100 unit/mL (3 mL) subcutaneous pen 30 unit (0.3 mL) subcut BID #0 mL 12/20/22 potassium chloride 20 mEq tablet,extended release(part/cryst) (Klor-Con M) 20 meq PO BIDCM #60 tabs 12/20/22 Hospital Course Summary of Care Provided Minutes Spent on Discharge: 35 Physical Exam Narrative GENERAL: cooperative HEENT: Atraumatic; normocephalic EYES; Anicteric, Normal Conjunctiva NECK; supple, normal thyroid, RESPIRATORY: Diminished to auscultation CARDIOVASCULAR: Regular S1 S2, GI: soft, normoactive bowel sounds, : No Renal angle tenderness; EXTREMITIES: No edema, no clubbing, MUSCULOSKELETAL: no muscle wasting NEURO: Awake; no lateralizing signs. SKIN: No Rash PSYCH; Flat affect Weight / BMI Weight Weight: 76.2 kg Body Mass Index (BMI) 20.2 ABG / Lab / Microbiology Data Result Diagrams: 12/20/22 05:47 12/20/22 05:47 Laboratory: Laboratory Results - last 24 hr 12/19/22 01:36: Diff Path Review Reviewed 12/19/22 08:09: POC Glucose 290 H 12/19/22 09:04: POC Glucose 244 H 12/19/22 10:03: POC Glucose 258 H 12/19/22 10:10: Sodium 138, Potassium 4.4, Chloride 112 H, Carbon Dioxide 8.0 L* , Anion Gap 18 H, BUN 20 H, Creatinine 0.98, Estim Creat Clear Calc 120.75, Est GFR (MDRD) Af Amer 123, Est GFR (MDRD) Non-Af 102, BUN/Creatinine Ratio 20.4 H, Glucose 280 H, Calcium 8.5 12/19/22 11:07: POC Glucose 280 H 12/19/22 12:06: POC Glucose 243 H 12/19/22 13:09: POC Glucose 260 H 12/19/22 14:00: Sodium 137, Potassium 3.4 L, Chloride 109 H, Carbon Dioxide 17.0 L, Anion Gap 11, BUN 18, Creatinine 1.13, Estim Creat Clear Calc 104.72, Est GFR (MDRD) Af Amer 104, Est GFR (MDRD) Non-Af 86, BUN/Creatinine Ratio 15.9, Glucose 270 H, Calcium 8.3 L 12/19/22 14:01: POC Glucose 249 H 12/19/22 16:04: POC Glucose 234 H 12/19/22 21:13: POC Glucose 399 H 12/20/22 05:47: Sodium 137, Potassium 3.1 L, Chloride 106, Carbon Dioxide 23.0, Anion Gap 8, BUN 10, Creatinine 0.96, Estim Creat Clear Calc 131.19, Est GFR (MDRD) Af Amer 125, Est GFR (MDRD) Non-Af 104, BUN/Creatinine Ratio 10.4, Glucose 336 H, Calcium 8.0 L, Total Bilirubin 0.70, AST 5 L, ALT 17, Alkaline Phosphatase 115, Total Protein 5.9 L, Albumin 2.7 L, Globulin 3.2, Albumin/Globulin Ratio 0.8 L 12/20/22 05:47: WBC 5.7, RBC 4.21 L, Hgb 11.1 L, Hct 32.2 L, MCV 76.5 L D, MCH 26.4 L, MCHC 34.5 D, RDW Std Deviation 38.5, RDW Coeff of Rabia 14.3, Plt Count 267, MPV 8.6, Immature Gran % (Auto) 0.300, Neut % (Auto) 65.6, Lymph % (Auto) 23.4, [place] % (Auto) 9.6, Eos % (Auto) 0.9, Baso % (Auto) 0.2, Absolute Neuts (auto) 3.8, Absolute Lymphs (auto) 1.34, Nucleated RBC % 0 D/C Instructions Discharge Diet: 1800 Calorie Control Diet Discharge Activity: Return to Normal Activity Call your doctor if you observe: Fever of 101 or Higher, Shortness of breath, Fainting spells and Chest pain Meaningful Use Info Meaningful Use Diagnoses (Choose all that apply): None applicable Discharge Plan Admission Admit Date/Time: 12/19/22 03:42 Attending Provider: Will Mason Primary Care Provider: Mario Reyes Consulting Providers: Isaac Galvan Discharge Orders/Prescriptions Prescriptions: New potassium chloride [Klor-Con M20] 20 mEq Tablet,Er Particles/Crystals 20 meq PO BIDCM Qty: 60 0RF insulin glargine-yfgn 100 unit/mL (3 mL) Insulin Pen 30 unit subcut BID Qty: 0 0RF Continued (DME) OneTouch Verio test strips Strip See Rx Instructions .ROUTE .MEDSUPPLY Qty: 200 6RF Rx Instructions: 4x/day (DME) pen needle, diabetic [BD Ultra-Fine Lorin Pen Needle] 32 gauge x 5/32 needle See Rx Instructions .ROUTE .MEDSUPPLY Qty: 360 6RF Rx Instructions: As directed (DME) FreeStyle Niru 14 Day Sensor Kit See Rx Instructions .ROUTE .MEDSUPPLY Qty: 2 5RF Rx Instructions: As directed insulin lispro [Humalog KwikPen Insulin] 100 unit/mL insulin pen See Protocol subcut [facility] Protocol: 1. Sliding Scale Insulin Low Dosing Condition: 150-224 mg/dl = 1 unit Condition: 225-299 mg/dl = 2 units Condition: 300-374 mg/dl = 3 units Condition: 375-499 mg/dl = 4 units Condition: Greater than 449 call physician Protocol Text: - Use for Total Daily Dose of Insulin 15-27 units - Thin, elderly, renal patients LOW DOSING ALGORITHM insulin lispro [Humalog KwikPen Insulin] 100 unit/mL insulin pen 25 unit subcut TIDAC colchicine 0.6 mg tablet 0.6 mg PO BID Label Comments: TAKE 1 TABLET BY MOUTH TWICE DAILY Xarelto 20 mg Tablet 20 mg PO DAILY Rx Instructions: must administer with evening meal insulin glargine-yfgn 100 unit/mL (3 mL) insulin pen 16 unit subcut BID Referrals / Follow Up: Mario Reyes MD [Primary Care Provider] - In 1 Week Disposition Disposition (needs filled in before D/C Order can be placed): Home, Self Care Charges/Coding Visit Charges Inpatient E&M: 94320 Disch Hosp >30min
[2022-12-20 08:45] LABS: Bedside Glucose 311 mg/dL (74-106)
[2022-12-20] MEDS: Insulin Lispro 100 UNIT/ML INSULN.PEN 20 UNIT SC ×2 (08:53→12:15)
[2022-12-20] MEDS: Insulin Lispro 100 UNIT/ML INSULN.PEN SC ×2 (08:54→12:15)
[2022-12-20] MEDS: Potassium Chloride 10mEq/100mL 10 MEQ/100 ML IV.SOLN. 100 MEQ IV BOLUS ×4 (08:58→12:58)
--- NOTE | 2022-12-20 09:38 | CASEMGMT ---
Addendum entered by Maddi Reyna 12/20/22 15:38: Call received from admin secretary, Codi, stating transportation has not arrived to take pt home. Call placed to [facility] and spoke w/Estefany. Estefany states the transportation was marked as incomplete and then cancelled. She states they were unable to locate a driver salesman and that they did try to contact someone at the hospital and were unsuccessful, so they cancelled the transportation. Estefany attempted to set up transportation arrangements again. Trip #: [id number], but again was unsuccessful w/finding a driver salesman and forwarded this RN HUSEYIN to their dispatch who states is not sure how long it will take to locate a driver salesman. RN HUSEYIN cancelled [facility] transportation at this time. Call to ICU admin secretaryCodi, and informed her pt will need to be given taxi voucher for transportation home. Addendum entered by Maddi Reyna 12/20/22 12:17: [facility] Van transport unable to take pt home today. Call to [facility]: Arrangements made for them to pick pt up today @ the main entrance to take pt home @ 3 PM. Trip confirm #: [id number]. ICU admin secretary, Codi, made aware. Addendum entered by Maddi Reyna 12/20/22 11:25: Pt gave permission for VERONA FONTANEZ to contact his grandma, Ines, to inform her of the appts and transportation. TC to [facility] [place] at this time. VERONA FONTANEZ reviewed all appts and times w/her as well as transportation arrangements made for his appt w/Dr Reyes on Sun. She voices understanding. Ines aware pt will need transportation arranged for other upcoming appts and she voices understanding. She stated she does not have [facility] contact info. This was provided at this time and she was made aware it is also in pt's discharge instructions. Questions answered. She denies having further questions at this time. Ines and pt both state pt does not have a ride home. She was made aware [facility] Van can take pt home. RN and admin secretary both made aware of need of [facility] van to take pt home. Original Note: VERONA FONTANEZ NOTE: Pt being discharged home today. Appt scheduled w/Dr Reyes for Friday 12/22 @ 2 PM for hospital f/u visit. Pt to arrive @ 1:45 PM. Arrangements made w/[facility] to pick pt and his grandmother up @ pt's home @ 12:45 PM. Trip confirm # [id number]. Pt made aware and this was added to discharge plan. Per [facility], pt and his grandmother are both still set up to receive text alerts/reminders of appt/times. Per Dr Reyes's admin secretary, pt also has an appt w/Dr Reyes to get established as a new-pt on March 23, 2023 @ 11 AM and he has an appt w/Mandi MAGAÑA, endocrinology @ [facility] on February 21, 2023 @ 1:30 PM. Pt made aware of all of these appts and they were added on pt's discharge plan. Pt made aware to schedule for transportation w/[facility] to these appts, if he has no other means of transportation. Ena BSN RN CM
[2022-12-20] MEDS: Potassium Chloride Oral Tablet 20 MEQ PO (10:20)
[2022-12-20] MEDS: Insulin Glargine-YFGN 100 UNIT/ML Pen 30 UNIT SC (10:21)
--- NOTE | 2022-12-20 10:41 | NURSING ---
Unable to give 0600 dose of zosyn due to lack of infusion pumps. pump found, consulted Lusi in pharmacy for next dose. Per Luis, hold 0600 dose and give 1400 dose at 1200.
[2022-12-20 12:36] LABS: Bedside Glucose 228 mg/dL (74-106)
--- NOTE | 2022-12-20 15:15 | NURSING ---
discharge instructions called to mother and grandmother, verbalized understanding. Per mother, someone will be there to help patient get off transportation when he gets home.
--- NOTE | 2022-12-20 16:14 | CHAPLAIN ---
Type of Pastoral Visit _x__ Initial Visit ___ Follow-up Visit ___ On-call Visit ___ General Patient Visit ___ Spiritual Assessment ___ Family Conference ___ Bereavement ___ Rapid Response ___ Code Blue ___ Other (describe below) Pastoral Care Referral From _x__ Patient ___ Family ___ Nurse ___ Physician ___ Mailing Machine Assistant ___ Architect ___ Other (describe below) Sacrament/Intervention _x__ Active listening ___ Anointing ___ Judaism ___ Bereavement ___ Communion ___ Lizbeth exploration ___ ___ Life review _x__ Prayer ___ Reconciliation ___ Sacrament of Sick ___ Supportive presence ___ Wedding ___ Other (describe below) Pastoral Comments engaged patient with open ended questions to learn more about his needs or concerns; pt politely answered questions but did not engage in conversation much beyond the answers; pt did talk about his birthday being tomorrow and what he might look forward to having; otherwise pt does not have goals or plans in life; pt did welcome a prayer
--- NOTE | 2022-12-21 08:14 | PCM.HOSP.N ---
Hospitalist Note Got a notification from microbiology regarding patient blood cultures 1 out of 2 bottles growing gram-negative rods. Did call patient and informed of the results prescription written for cefdinir. 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
== END 2022-12-20 16:35 | disposition home or self-care (01) | DRG 420 ==
LOC: ED 02:25 → ICU 04:33
PROVIDERS: Admitting Provider Hospitalist; Emergency Provider Emergency Medicine; PCP Internal Medicine; Visit Provider Internal Medicine
DX: E10.10 Type 1 diabetes mellitus with ketoacidosis without coma (principal); G93.41 Metabolic encephalopathy; R78.81 Bacteremia; Z79.4 Long term (current) use of insulin; E87.6 Hypokalemia; D72.828 Other elevated white blood cell count; Z79.01 Long term (current) use of anticoagulants; Z86.711 Personal history of pulmonary embolism; Z86.718 Personal history of other venous thrombosis and embolism
CPT/HCPCS: 36600; 51702; 70450; 71045; 80048; 80053; 81001; 82009; 82077; 82803; 82962; 83036; 83605; 83735; 83930; 84100; 85025; 87040; 87077; 93005; 97161; 97166; 97802; 99285; J7030; A4216; C1751; J2405; J7799

== ENCOUNTER 2022-12-30 10:33 | Inpatient (IN) | payer MEDICAID, SELFPAY ==
[2022-12-30] VITALS (20 sets, daily range): BP systolic 81–120; BP diastolic 55–81; PULSE 78–130; RESP 16–28; TEMP 30.9–37.8; O2SAT 95–100; BMI 21.1; BMI 19.3
--- NOTE | 2022-12-30 10:42 | EX.ED.DYSGE1 ---
HPI History of Present Illness Chief Complaint: Alt LOC Informant: EMS Limited: stupor Onset/Context/Timing Onset: Today Context: Sudden Onset Timing: Continuous Narrative Narrative: Patient presents with unresponsive episode that began this morning. EMS reports mother found the patient unresponsive on the toilet today. Patient is nonverbal and is a poor informant. EMS reports the patient's blood sugar was 399. Review of prior records shows that the patient was recently admitted to the hospital for DKA. PFSH [facility] Medical History Asthma Diabetes mellitus type 1 Diabetic ketoacidosis associated with type 1 diabetes mellitus femur surgery GERD (gastroesophageal reflux disease) Hypokalemia Kidney disease Lower extremity edema Nausea and vomiting Non-smoker Noncompliance Nonhealing surgical wound Psychosocial problem Severe protein-calorie malnutrition Sinus tachycardia seen on monitoring coordinator Ulcer of leg, chronic Wound of left lower extremity Home Medications blood sugar diagnostic (Hit SystemsTouch Verio test strips) #200 ea 09/08/21 [Rx Last Taken Unknown] pen needle, diabetic 32 gauge x 5/32 (BD Ultra-Fine Lorin Pen Needle) #360 ea 09/08/21 [Rx Last Taken Unknown] flash glucose sensor (FreeStyle Niru 14 Day Sensor kit) #2 ea 10/11/21 [Rx Last Taken Unknown] insulin lispro 100 unit/mL subcutaneous pen (Humalog KwikPen (U-100) Insulin) 25 unit subcut TIDAC DM 07/24/22 [History Last Taken Unknown] insulin lispro 100 unit/mL subcutaneous pen (Humalog KwikPen (U-100) Insulin) See Protocol subcut ACHS DM 07/24/22 [History Last Taken Unknown] colchicine 0.6 mg tablet 0.6 mg PO BID 09/17/22 [History Last Taken Unknown] rivaroxaban 20 mg tablet (Xarelto) 20 mg PO DAILY 09/17/22 [History Last Taken Unknown] insulin glargine-yfgn 100 unit/mL (3 mL) subcutaneous pen 16 unit subcut BID 12/19/22 [History Last Taken Unknown] insulin glargine-yfgn 100 unit/mL (3 mL) subcutaneous pen 30 unit (0.3 mL) subcut BID #0 mL 12/20/22 [Rx Last Taken Unknown] potassium chloride 20 mEq tablet,extended release(part/cryst) (Klor-Con M) 20 meq PO BIDCM #60 tabs 12/20/22 [Rx Last Taken Unknown] cefdinir 300 mg capsule 300 mg PO BID #20 caps 12/21/22 [Rx Last Taken Unknown] Allergy/AdvReac Type Severity Reaction Status Date / Time Milk Containing Products AdvReac Diarrhea Verified 12/30/22 10:34 Family History Father Polysubstance overdose Patient father young secondary to OD. Mother Iron deficiency anemia Other Asthma CVA (cerebral vascular accident) Diabetes Hypertension Thyroid disorder Surgical History H/O right knee surgery History of surgery on extremity Hx of knee surgery Social History housing: other details: Lives with his grandmother, aunt and mother. Smoking Status: Never smoker alcohol intake: current alcohol intake frequency: a few times a month substance use type: does not use ROS ROS ED Review of Systems ROS Unobtainable: due to mental status EXAM Physical Exam Const Vital Signs: 12/30/22 10:34 12/30/22 10:45 12/30/22 11:04 Temperature 87.8 F L Temperature Source Axillary Pulse Rate 94 Respiratory Rate 27 H Respiratory Pattern Kussmaul Blood Pressure 108/81 H Blood Pressure Mean 90 Pulse Ox 95 Oxygen Delivery Method Room Air Room Air 12/30/22 11:33 12/30/22 12:00 Temperature 95.4 F L 88.9 F L Temperature Source Temporal Core Pulse Rate 99 94 Respiratory Rate 18 18 Respiratory Pattern Blood Pressure 104/78 120/78 Blood Pressure Mean 86 92 Pulse Ox 97 97 Oxygen Delivery Method Room Air Room Air Positive well nourished and well developed General Appearance ED: well developed HEENT Reports moist mucous membranes Neck no JVD Resp normal respiratory effort and clear to auscultation bilaterally Cardio regular rate, regular rhythm and no murmurs GI non-distended Palpation: soft Extremity normal to inspection General Extremety ED: Negative for edema or tenderness General Extremity: Negative for edema Neuro Neuro Narrative: Patient is nonverbal and does not respond to sternal rub. Patient does not follow commands. Sensorium / Orientation: lethargic Skin no rashes or lesions noted MDM MDM MDM Narrative Medical decision making narrative: Differential diagnosis includes stroke, DKA, electrolyte abnormality, sepsis, coagulopathy, intracranial bleeding, cardiac dysrhythmia, and infection. CT scan of the brain will be obtained to assess for intracranial bleeding and stroke. CBC will be obtained to assess for leukocytosis and anemia. Basic metabolic profile will be obtained to assess for hyperglycemia, electrolyte abnormality, and renal function. EKG will be obtained to assess for cardiac dysrhythmia. Arterial blood gas will be obtained to assess for acid-base status and oxygenation. Serum ketones will be obtained to assess for ketoacidosis. Lactate will be obtained to assess for sepsis. Blood cultures will be obtained to assess for sepsis. PT with INR and PTT will be obtained to assess for coagulopathy. Urinalysis will be obtained to assess for urinary tract infection. Lab Data Attestation: I reviewed the patient's lab results. Lab results narrative: CBC was reviewed and shows a leukocytosis of 28.0. Platelets were also elevated at 711. Pro time was reviewed and was slightly elevated at 16.9 with an INR of 1.4. PTT was reviewed and was normal at 32.5. Basic metabolic profile was reviewed. Glucose was 706, CO2 was 3.0, anion gap was 27. Creatinine was slightly elevated at 1.35. Sodium was just slightly low at 133 and potassium was normal at 4.4. Serum acetone was reviewed and was large. Lactic acid was reviewed and was elevated at 3.2. Initial BGT was greater than 500. Serial blood gas was reviewed and showed a pH of 6.609, PCO2 of 12.5, PO2 of 174.5, HCO3 of 1.3, and oxygen saturation of 95.4% on room air. Labs: Laboratory Results - last 24 hr 12/30/22 12/30/22 12/30/22 10:55 10:55 10:55 WBC 28.0 H RBC 5.63 Hgb 14.7 Hct 46.1 MCV 81.9 MCH 26.1 L MCHC 31.9 L RDW Std Deviation 43.1 RDW Coeff of Rabia 14.7 H Plt Count 711 H MPV 9.4 Immature Gran % (Auto) 1.800 H Neut % (Auto) 66.8 Lymph % (Auto) 23.2 Travis % (Auto) 7.5 Eos % (Auto) 0.1 Baso % (Auto) 0.6 Absolute Neuts (auto) 18.7 H Absolute Lymphs (auto) 6.50 H Nucleated RBC % 0 Diff Path Review May foll PT 16.9 H INR 1.4 APTT 32.5 Sodium 133 L Potassium 4.4 Chloride 103 Carbon Dioxide 3.0 L* Anion Gap 27 H BUN 17 Creatinine 1.35 H Estim Creat Clear Calc 90.69 Est GFR (MDRD) Af Amer 85 Est GFR (MDRD) Non-Af 70 BUN/Creatinine Ratio 12.6 Glucose 706 H* Lactic Acid Calcium 10.4 H Acetone Level POC Glucose 12/30/22 12/30/22 12/30/22 10:55 10:55 11:37 WBC RBC Hgb Hct MCV MCH MCHC RDW Std Deviation RDW Coeff of Rabia Plt Count MPV Immature Gran % (Auto) Neut % (Auto) Lymph % (Auto) Travis % (Auto) Eos % (Auto) Baso % (Auto) Absolute Neuts (auto) Absolute Lymphs (auto) Nucleated RBC % Diff Path Review PT INR APTT Sodium Potassium Chloride Carbon Dioxide Anion Gap BUN Creatinine Estim Creat Clear Calc Est GFR (MDRD) Af Amer Est GFR (MDRD) Non-Af BUN/Creatinine Ratio Glucose Lactic Acid 3.2 H* Calcium Acetone Level LARGE H POC Glucose > 500 H* ABG Data ABG results: ABG 12/30/22 11:29 Specimen Type ART Sample Site L Brach pH 6.61 L* Bicarbonate Actual 1.3 L Total CO2 < 5 Base Excess < -30 L O2 Saturation 95 ABG pCO2 12.5 L* ABG pO2 175 H O2 Delivery Device Room Air Crit Call To/Read Back Yes Blood Gas Notified Whom schwiger Radiography Chest X-Ray - ED: 1 View, Read by ED Physician, Read by Radiologist and No Acute Disease Diagnostic Testing: Clinical Impression(s) from Imaging Studies Brain CT 12/30/22 10:49 IMPRESSION: No acute intracranial abnormality. No interval change. Electronically Signed: Reji Kim MD at 11:21 EST , Chest X-Ray 12/30/22 11:10 IMPRESSION: No acute cardiopulmonary abnormality. Electronically Signed: Reji Kim MD at 11:22 EST , Portable 1 view chest x-ray was obtained. On my independent interpretation, lung tinajero are clear. There is normal cardiac silhouette. Bony thorax is normal. There is no acute process noted. Radiologist also interpreted the x-ray and agrees. CT scan of the brain was obtained. There is no acute intracranial abnormality. This was interpreted by the radiologist and was also independently reviewed by myself. EKG Initial EKG: Attestation: I personally reviewed and interpreted this EKG as follows: Interpretation: Sinus Rhythm (88) and Non-Specific ST Changes Comments: EKG was obtained. On my interpretation, it showed a normal sinus rhythm with a rate of 88. NM interval, QRS interval, and QTc intervals were all normal. [place] was normal. There are nonspecific ST-T wave changes. Prior EKG tracings: available for review Prior: Unchanged (12/19/2022) Treatment and Re-Evaluation Narrative: Patient was given IV fluids. Patient was given 2 A of sodium bicarbonate. Patient was started on insulin drip. Patient was given insulin bolus. Case was discussed with Dr. Ferrell from ICU. He did not want bicarb drip started. He is agreeable with the treatment. He will see the patient in ICU. Case was discussed with the hospitalist, Dr. Be. He will admit the patient to ICU. Procedures Other Procedures Procedure(s): A right internal jugular central line was attempted. The patient was prepped and draped in a sterile manner. The right internal jugular area was anesthetized 1% lidocaine locally. Ultrasound guidance was used to visualize the right internal jugular vein. Under ultrasound visualization, the right internal jugular line was punctured. The guidewire was attempted to pass through the needle and into the internal jugular vein. There was some resistance with this. The guidewire was withdrawn. There was no pulsatile bleeding. Other attempts were made to puncture the internal jugular vein again without success. The procedure was then stopped because the patient was starting to become more agitated and move. Postprocedure x-ray will be obtained. Dressing was applied to the area. Critical Care Time Critical Care Time: Yes Critical care time (excluding procedures): 30-74 minutes (36), Including time spent:, Discussing w/Patient &/or Family/Travel Registered Nurse Oncology, Discussing w/Consultants, Arranging Admission or Transfer, Performing Direct Patient Care at Bedside and - (Critical care time: 36 minutes. This was time spent obtaining history, performing physical examination, documenting, interpreting test results, discussion with consultants, and determining disposition.) Discharge Plan Dx/Rx/DC Orders Clinical Impression: Diabetic ketoacidosis, Acidosis, lactic, Leukocytosis Disposition Disposition: Acute Care [facility]
--- NOTE | 2022-12-30 10:49 | EKG12_ITS ---
Test Reason : ALT LOC Blood Pressure : / mmHG Vent. Rate : 088 BPM Atrial Rate : 088 BPM P-R Int : 170 ms QRS Dur : 102 ms QT Int : 218 ms P-R-T Axes : 054 071 069 degrees QTc Int : 263 ms Poor data quality, interpretation may be adversely affected Normal sinus rhythm Nonspecific ST and T wave abnormality Abnormal ECG \ Confirmed by YANE CASTILLO, ROXANNE ([id number]), department editor AYESHA VALLE ([id number]) on 01/01/2023 2:00:10 PM Referred By: Confirmed By:ROXANNE CHE MD
--- NOTE | 2022-12-30 10:49 | CT_ITS ---
EXAM: CT HEAD WITHOUT INTRAVENOUS CONTRAST CLINICAL INDICATION: Altered mental status TECHNIQUE: Multiple axial images were obtained of the head without intravenous contrast. This CT exam was performed using one or more of the following dose reduction techniques: automated exposure control, adjustment of the mA and/or kV according to patient size, and/or use of iterative reconstruction technique. This report was created using [employer] report generation technology. COMPARISON: CT Head dated 12/19/2022 FINDINGS: BRAIN AND EXTRA-AXIAL SPACES: Normal. No intra- or extra-axial hemorrhage. No evidence of acute infarct. No intracranial mass or mass effect. There is preservation of the alexandre/white matter interface. Posterior fossa structures are unremarkable. Ventricles are appropriate for age. No hydrocephalus. Basal cisterns are patent. BONES/JOINTS: No suspicious lytic or blastic abnormality. SINUSES: Unremarkable as visualized. No acute sinusitis. MASTOID AIR CELLS: Normal. Clear. ORBITS: Visualized globes, extraocular muscles, optic nerves and retrobulbar fat appear unremarkable. CT/Brain/Head without Contrast IMPRESSION: No acute intracranial abnormality. No interval change. Electronically Signed: Reji Kim MD at 11:21 EST ,
[2022-12-30] MEDS: 0.9% Normal Saline 1,000 ML 1000 ML IV (10:59)
--- NOTE | 2022-12-30 11:10 | RAD_ITS ---
EXAM: XR CHEST, 1 VIEW CLINICAL INDICATION: Altered mental status TECHNIQUE: Frontal view of the chest. This report was created using [employer] report generation technology. COMPARISON: XR Chest dated 12/19/2022 FINDINGS: LUNGS AND PLEURAL SPACES: Normal. No consolidation or edema. No pneumothorax. No effusion. HEART: Normal heart size. MEDIASTINUM: No mediastinal or hilar mass. BONES/JOINTS: No acute abnormality. SOFT TISSUES: Normal. TUBES, LINES AND DEVICES: Interval removal of the right subclavian central venous catheter. RAD/Chest 1 View (Portable) IMPRESSION: No acute cardiopulmonary abnormality. Electronically Signed: Reji Kim MD at 11:22 EST ,
[2022-12-30 11:21] LABS: Absolute Neutrophil Count 18.7 X10^3/uL (2.0-7.7); Basophil# 0.17 X10^3/uL; Basophil% 0.6 % (0-1); Eosinophil# 0.04 X10^3/uL; Eosinophils% 0.1 % (0-5); Hematocrit 46.1 % (40-54); Hemoglobin 14.7 g/dL (13.0-16.5); Lymphocyte % 23.2 % (19-41); Mean Corp Hgb Conc 31.9 g/dL (32-36); Mean Corpuscular Hgb 26.1 pg (27.0-32.0); Mean Corpuscular Volume 81.9 fL (80-94); Mean Platelet Vol. 9.4 fl (6.2-12.0); Monocyte# 2.11 X10^3/uL; Monocyte% 7.5 % (0-10); NRBC Flagged by Analyzer 0 % (0-5); Neutrophil # 18.65 X10^3/uL (2.7-7.7); Neutrophil % 66.8 % (47-70); POSITIVE DIFFERENTIAL YES; POSITIVE MORPHOLOGY YES; Platelet Count 711 K/mm3 (150-450); RBC Distribution Width CV 14.7 % (11.6-14.6); RBC Distribution Width SD 43.1 fl (35.1-43.9); Red Blood Count 5.63 M/mm3 (4.6-6.2)
[2022-12-30 11:28] LABS: International Normalized Ratio 1.4; Prothrombin Time (Protime)PT. 16.9 SECONDS (11.7-14.9)
[2022-12-30 11:29] LABS: Differential Indicated SCAN CRITERIA MET
[2022-12-30 11:30] LABS: Partial Thromboplast Time 32.5 Seconds (24.1-36.2)
[2022-12-30 11:46] LABS: Base Excess < -30 mmol/L (-2 to +2); Bicarbonate 1.3 mmol/L (22-26); Blood Gas Specimen Type ART; O2 Delivery Device Room Air; PO2 175 mmHG (75-100); SITE L Brach; SO2 95 % (95-99); Total Carbon Dioxide < 5 mmol/L; pCO2 12.5 mmHg (35-45); pH 6.61 (7.35-7.45)
[2022-12-30 11:55] LABS: Anion Gap 27 (5-15); BUN 17 mg/dL (7-18); BUN/Creat Ratio 12.6 RATIO (10-20); Calcium,Total 10.4 mg/dL (8.5-10.1); Chloride 103 mmol/L (98-107); Creatinine, Serum 1.35 mg/dL (0.70-1.30); EST Glomerular Filtration Rate 70 mL/min (>60); Est Glom Filt Rate - Afr Amer 85 mL/min (>60); Estimated Creatinine Clearance 90.69 ml/min; Glucose 706 mg/dL (74-106); Lactic Acid 3.2 mmol/L (0.4-1.9); Potassium 4.4 mmol/L (3.5-5.1); Sodium Level 133 mmol/L (136-145)
[2022-12-30 11:56] LABS: Bedside Glucose > 500 mg/dL (74-106)
[2022-12-30] MEDS: Sodium Bicarbonate 8.4% 50 ML Syringe 100 MEQ IV (12:22)
[2022-12-30 12:32] LABS: Bacteria 0 SEEN /hpf (None Seen); Mucous, Urine 0 SEEN /hpf (<or=2+); Red Blood Cells-Urine 0 SEEN /hpf (0-5); Squamous Epithelial Cells - UA 0 SEEN /hpf (0-5); White Blood Cells 0 SEEN /hpf (0-5)
[2022-12-30 12:43] LABS: Color, Urine Straw (Yellow); Glucose, Dipstick 1000 mg/dl (Normal); Leukocyte Esterase-Dipstick Negative /ul (Negative); Nitrite-Dipstick Negative (Negative); Occult Blood-Urine 10 /ul (Negative); Protein-Dipstick 30 mg/dl (Negative); Urine Bilirubin Dipstick Negative (Negative); Urine Clarity Clear (Clear); Urine Urobilinogen Normal (Normal)
[2022-12-30 12:44] LABS: Ketone-Dipstick 150 mg/dl (Negative)
--- NOTE | 2022-12-30 13:20 | RAD_ITS ---
EXAM: XR CHEST, 1 VIEW CLINICAL INDICATION: Attempted line placement TECHNIQUE: Frontal view of the chest. This report was created using [employer] report generation technology. COMPARISON: XR Chest dated 12/30/2022 FINDINGS: LUNGS AND PLEURAL SPACES: Normal. No consolidation or edema. No pneumothorax. No effusion. HEART: Normal heart size. MEDIASTINUM: No mediastinal or hilar mass. BONES/JOINTS: No acute abnormality. SOFT TISSUES: Normal. RAD/Chest 1 View (Portable) IMPRESSION: No acute cardiopulmonary abnormality. No interval change. Electronically Signed: Reji Kim MD at 13:47 EST ,
--- NOTE | 2022-12-30 14:00 | NURSING ---
12/30 1400: on arrival to unit patients core temperature is 87.7, bear hugger placed on patient.
[2022-12-30] MEDS: 0.9% Normal Saline 1,000 ML 999 ML IV ×3 (14:08→17:00)
[2022-12-30 14:26] LABS: Bedside Glucose > 500 mg/dL (74-106)
[2022-12-30 15:09] LABS: Reflex Lactate? Y
[2022-12-30 15:40] LABS: Bedside Glucose 489 mg/dL (74-106)
[2022-12-30 16:16] LABS: Lactic Acid 1.6 mmol/L (0.4-1.9)
--- NOTE | 2022-12-30 16:16 | PCM.HP.STD ---
HPI - General General Date of Admission: 12/30/22 Date of Service: 12/30/22 Chief Complaint: Mental status change, elevated blood sugar HPI Narrative SHIRA STEPHENSON, is a 22 M who presents to the emergency room at [facility] for evaluation of mental status change at home, patient was lethargic and unresponsive, he has had multiple admissions for DKA and he is a poorly controlled diabetic. Work-up in the emergency room shows white blood cell count to be elevated at 28,000, arterial blood gas was performed, pH was 6.61, PCO2 was 12.5, PO2 was 175 on room air, patient's sodium was 133, bicarb was 3, anion gap was elevated at 27, creatinine was 1.35, and glucose was 706. Patient's lactic acid was elevated at 3.2, urinalysis showed high urine ketones, high urine glucose, no white cells no red cells and no bacteria. Patient was given IV fluids in the emergency room started on insulin drip, he was also given bicarbonate administration in the ER. Patient was admitted to ICU for DKA, he will be given additional fluids and blood sugars will be monitored as well as BMP. I talked briefly with the patient's grandmother who he lives with, he states that his continuous glucose monitor was not working but that when he does use the continuous glucose monitor, he does administer insulin to himself based on the monitor. [facility] Medical History Asthma Diabetes mellitus type 1 Diabetic ketoacidosis associated with type 1 diabetes mellitus femur surgery GERD (gastroesophageal reflux disease) Hypokalemia Kidney disease Lower extremity edema Nausea and vomiting Non-smoker Noncompliance Nonhealing surgical wound Psychosocial problem Severe protein-calorie malnutrition Sinus tachycardia seen on cardiac nurse practitioner Ulcer of leg, chronic Wound of left lower extremity Home Medications blood sugar diagnostic (OneTouch Verio test strips) #200 ea 09/08/21 [Rx Last Taken Unknown] pen needle, diabetic 32 gauge x 5/32 (BD Ultra-Fine Lorin Pen Needle) #360 ea 09/08/21 [Rx Last Taken Unknown] flash glucose sensor (FreeStyle Niru 14 Day Sensor kit) #2 ea 10/11/21 [Rx Last Taken Unknown] insulin lispro 100 unit/mL subcutaneous pen (Humalog KwikPen (U-100) Insulin) 25 unit subcut TIDAC DM 07/24/22 [History Last Taken Unknown] insulin lispro 100 unit/mL subcutaneous pen (Humalog KwikPen (U-100) Insulin) See Protocol subcut ACHS DM 07/24/22 [History Last Taken Unknown] colchicine 0.6 mg tablet 0.6 mg PO BID 09/17/22 [History Last Taken Unknown] rivaroxaban 20 mg tablet (Xarelto) 20 mg PO DAILY 09/17/22 [History Last Taken Unknown] insulin glargine-yfgn 100 unit/mL (3 mL) subcutaneous pen 16 unit subcut BID 12/19/22 [History Last Taken Unknown] insulin glargine-yfgn 100 unit/mL (3 mL) subcutaneous pen 30 unit (0.3 mL) subcut BID #0 mL 12/20/22 [Rx Last Taken Unknown] potassium chloride 20 mEq tablet,extended release(part/cryst) (Klor-Con M) 20 meq PO BIDCM #60 tabs 12/20/22 [Rx Last Taken Unknown] cefdinir 300 mg capsule 300 mg PO BID #20 caps 12/21/22 [Rx Last Taken Unknown] Allergy/AdvReac Type Severity Reaction Status Date / Time Milk Containing Products AdvReac Diarrhea Verified 12/30/22 10:34 Family History Father Polysubstance overdose Patient father young secondary to OD. Mother Iron deficiency anemia Other Asthma CVA (cerebral vascular accident) Diabetes Hypertension Thyroid disorder Surgical History H/O right knee surgery History of surgery on extremity Hx of knee surgery Social History housing: other details: Lives with his grandmother, aunt and mother. Smoking Status: Never smoker alcohol intake: current alcohol intake frequency: a few times a month substance use type: does not use ROS ROS Narrative Review of systems was unobtainable due to encephalopathy from DKA Vital Signs Vital Signs Vital Signs: 12/30/22 10:34 12/30/22 10:45 12/30/22 11:04 Temperature 87.8 F L Temperature Source Axillary Pulse Rate 94 Respiratory Rate 27 H Respiratory Effort Respiratory Depth Respiratory Pattern Kussmaul Blood Pressure 108/81 H Blood Pressure Mean 90 Pulse Ox 95 Oxygen Delivery Method Room Air Room Air 12/30/22 11:33 12/30/22 12:00 12/30/22 12:13 Temperature 95.4 F L 88.9 F L 88.5 F L Temperature Source Temporal Core Temporal Pulse Rate 99 94 78 Respiratory Rate 18 18 18 Respiratory Effort Respiratory Depth Respiratory Pattern Blood Pressure 104/78 120/78 118/78 Blood Pressure Mean 86 92 91 Pulse Ox 97 97 97 Oxygen Delivery Method Room Air Room Air Room Air 12/30/22 13:00 12/30/22 14:00 Temperature Temperature Source Pulse Rate 78 Respiratory Rate 18 Respiratory Effort Normal Non-Labored Respiratory Depth Normal Respiratory Pattern Tachypnea Blood Pressure 110/78 Blood Pressure Mean 88 Pulse Ox 100 Oxygen Delivery Method Room Air Room Air Weight Weight: 68.5 kg Body Mass Index (BMI) 19.3 Physical Exam Const Constitutional Narrative: Patient does not respond to verbal stimuli, he does respond to painful stimuli General Appearance: cooperative, well kempt and well developed HEENT normocephalic, head/scalp atraumatic and moist oral mucous membranes Mouth: dry mucous membranes Eyes conjunctivae normal Neck supple, no JVD, thyroid normal and no carotid bruits General: trachea midline Resp normal respiratory effort, no retractions, no use of accessory muscles and clear to auscultation bilaterally Auscultation: Negative for rales, rhonchi or wheezes Cardio regular rate, regular rhythm, S1 normal heart sound, S2 normal heart sound, no murmurs, no rub and no gallops GI normal to inspection, nondistended, normoactive bowel sounds, soft to palpation, non-tender and non-distended Extremity no clubbing, cyanosis or edema Skin no rashes or lesions noted General Skin Exam: no breakdown Neuro CN's II-XII intact bilaterally Neuro Narrative: Patient is somnolent, he does not respond to verbal stimuli, he does respond to painful stimuli Psych Psych Narrative: Patient is somnolent, he does not respond to verbal stimuli, he does respond to painful stimuli Results Lab / Micro Data Result Diagrams: 12/30/22 10:55 12/30/22 10:55 Labs: Laboratory Results - last 24 hr 12/30/22 10:55: WBC 28.0 H, RBC 5.63, Hgb 14.7, Hct 46.1, MCV 81.9, MCH 26.1 L, MCHC 31.9 L, RDW Std Deviation 43.1, RDW Coeff of Rabia 14.7 H, Plt Count 711 H, MPV 9.4, Immature Gran % (Auto) 1.800 H, Neut % (Auto) 66.8, Lymph % (Auto) 23.2, [place] % (Auto) 7.5, Eos % (Auto) 0.1, Baso % (Auto) 0.6, Absolute Neuts (auto) 18.7 H, Absolute Lymphs (auto) 6.50 H, Nucleated RBC % 0, Diff Path Review March12/30/22 10:55: PT 16.9 H, INR 1.4, APTT 32.5 12/30/22 10:55: Sodium 133 L, Potassium 4.4, Chloride 103, Carbon Dioxide 3.0 L*, Anion Gap 27 H, BUN 17, Creatinine 1.35 H, Estim Creat Clear Calc 90.69, Est GFR (MDRD) Af Amer 85, Est GFR (MDRD) Non-Af 70, BUN/Creatinine Ratio 12.6, Glucose 706 H*, Calcium 10.4 H 12/30/22 10:55: Acetone Level LARGE H 12/30/22 10:55: Lactic Acid 3.2 H* 12/30/22 11:37: POC Glucose > 500 H* 12/30/22 12:15: Urine Color Straw, Urine Clarity Clear, Urine pH 5.0, Ur Specific [place] 1.020, Urine Protein 30 H, Urine Glucose (UA) 1000 H, Urine Ketones 150 A*, Urine Occult Blood 10 H, Urine Nitrite Negative, Urine Bilirubin Negative, Urine Urobilinogen Normal, Ur Leukocyte Esterase Negative, Urine RBC 0 SEEN, Urine WBC 0 SEEN, Ur Squamous Epith Cells 0 SEEN, Urine Bacteria 0 SEEN, Urine Mucus 0 SEEN 12/30/22 14:05: POC Glucose > 500 H* 12/30/22 15:20: POC Glucose 489 H* 12/30/22 15:25: Lactic Acid 1.6 ABG Data ABG results: ABG 12/30/22 11:29 Specimen Type ART Sample Site L Brach pH 6.61 L* Bicarbonate Actual 1.3 L Total CO2 < 5 Base Excess < -30 L O2 Saturation 95 ABG pCO2 12.5 L* ABG pO2 175 H O2 Delivery Device Room Air Crit Call To/Read Back Yes Blood Gas Notified Whom maria alejandra Radiology Impression Brain CT 12/30/22 10:49 IMPRESSION: No acute intracranial abnormality. No interval change. Electronically Signed: Reji Kim MD at 11:21 EST , Chest X-Ray 12/30/22 11:10 IMPRESSION: No acute cardiopulmonary abnormality. Electronically Signed: Reji Kim MD at 11:22 EST , Chest X-Ray 12/30/22 13:20 IMPRESSION: No acute cardiopulmonary abnormality. No interval change. Electronically Signed: Reji Kim MD at 13:47 EST , Assessment & Plan Assessment/Plan (1) Diabetic ketoacidosis: PLAN: Plan 1. Diabetic ketoacidosis-patient has had many admissions for this in the past, the last time he was admitted was approximately 10 days ago, I talked at length with his grandson mother who was in the room at the time my examination-she is the main caregiver for the patient. Patient has continuous glucose monitor which was not working and the patient refuses to do fingerstick blood sugars. Patient was admitted to the ICU, order set was entered using the DKA order set, I have administered an additional 3 L of IV fluid via bolus, patient's labs and blood sugars will be monitored. 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
[2022-12-30 16:20] LABS: Anion Gap 23 (5-15); BUN 18 mg/dL (7-18); Calcium,Total 9.4 mg/dL (8.5-10.1); Chloride 115 mmol/L (98-107); Creatinine, Serum 1.06 mg/dL (0.70-1.30); EST Glomerular Filtration Rate 93 mL/min (>60); Est Glom Filt Rate - Afr Amer 112 mL/min (>60); Estimated Creatinine Clearance 105.91 ml/min; Glucose 487 mg/dL (74-106); Potassium 3.4 mmol/L (3.5-5.1); Sodium Level 143 mmol/L (136-145)
[2022-12-30 16:26] LABS: Bedside Glucose 444 mg/dL (74-106)
[2022-12-30] MEDS: Enoxaparin 80 MG/0.8 ML Syringe 70 MG SC (17:00)
--- NOTE | 2022-12-30 18:07 | NURSING ---
Patient core temperature on arrival to unit 88.0, bear hugger placed on patient
[2022-12-30] MEDS: 0.9% Normal Saline 1,000 ML 500 ML IV (18:26)
[2022-12-30 18:30] LABS: Bedside Glucose 269 mg/dL (74-106)
[2022-12-30 19:26] LABS: Bedside Glucose 248 mg/dL (74-106)
[2022-12-30 19:33] LABS: Anion Gap 21 (5-15); BUN 18 mg/dL (7-18); BUN/Creat Ratio 21.8 RATIO (10-20); Calcium,Total 8.9 mg/dL (8.5-10.1); Chloride 122 mmol/L (98-107); Creatinine, Serum 0.83 mg/dL (0.70-1.30); EST Glomerular Filtration Rate 124 mL/min (>60); Est Glom Filt Rate - Afr Amer 150 mL/min (>60); Estimated Creatinine Clearance 135.26 ml/min; Glucose 254 mg/dL (74-106); Potassium 3.4 mmol/L (3.5-5.1); Sodium Level 147 mmol/L (136-145)
[2022-12-30 20:15] LABS: Bedside Glucose 200 mg/dL (74-106)
[2022-12-30] MEDS: Dext 5%-0.45% NS 1,000 ML 150 ML IV (20:26)
[2022-12-30 21:25] LABS: Bedside Glucose 187 mg/dL (74-106)
[2022-12-30] MEDS: 0.9% Saline Lock 10 ML Syringe IV (22:14)
[2022-12-30 22:30] LABS: Bedside Glucose 176 mg/dL (74-106)
[2022-12-30 23:26] LABS: Bedside Glucose 180 mg/dL (74-106)
[2022-12-30 23:47] LABS: Anion Gap 17 (5-15); BUN 16 mg/dL (7-18); BUN/Creat Ratio 15.8 RATIO (10-20); Calcium,Total 9.1 mg/dL (8.5-10.1); Chloride 122 mmol/L (98-107); Creatinine, Serum 1.01 mg/dL (0.70-1.30); EST Glomerular Filtration Rate 98 mL/min (>60); Est Glom Filt Rate - Afr Amer 119 mL/min (>60); Estimated Creatinine Clearance 111.15 ml/min; Glucose 198 mg/dL (74-106); Potassium 3.2 mmol/L (3.5-5.1); Sodium Level 147 mmol/L (136-145)
[2022-12-31] VITALS (17 sets, daily range): BP systolic 96–129; BP diastolic 61–79; PULSE 98–130; RESP 12–19; TEMP 36.6–37.9; O2SAT 99–100
[2022-12-31 00:21] LABS: Bedside Glucose 186 mg/dL (74-106)
[2022-12-31 01:30] LABS: Bedside Glucose 166 mg/dL (74-106)
[2022-12-31 02:31] LABS: Bedside Glucose 172 mg/dL (74-106)
[2022-12-31] MEDS: Dext 5%-0.45% NS 1,000 ML 150 ML IV (03:07)
[2022-12-31 03:31] LABS: Bedside Glucose 157 mg/dL (74-106)
[2022-12-31 03:45] LABS: Anion Gap 12 (5-15); BUN 15 mg/dL (7-18); BUN/Creat Ratio 12.9 RATIO (10-20); Calcium,Total 8.9 mg/dL (8.5-10.1); Chloride 123 mmol/L (98-107); Creatinine, Serum 1.16 mg/dL (0.70-1.30); EST Glomerular Filtration Rate 84 mL/min (>60); Est Glom Filt Rate - Afr Amer 101 mL/min (>60); Estimated Creatinine Clearance 96.78 ml/min; Glucose 161 mg/dL (74-106); Potassium 2.8 mmol/L (3.5-5.1); Sodium Level 148 mmol/L (136-145)
[2022-12-31 04:31] LABS: Bedside Glucose 156 mg/dL (74-106)
[2022-12-31 05:30] LABS: Bedside Glucose 135 mg/dL (74-106)
[2022-12-31] MEDS: Potassium Chloride 20mEq/100mL 20 MEQ/100 ML IV.SOLN. 100 MEQ IV BOLUS ×2 (05:37→06:37)
[2022-12-31 06:20] LABS: Bedside Glucose 120 mg/dL (74-106)
[2022-12-31 07:25] LABS: Bedside Glucose 103 mg/dL (74-106)
[2022-12-31 07:29] LABS: Anion Gap 7 (5-15); BUN 12 mg/dL (7-18); BUN/Creat Ratio 11.5 RATIO (10-20); Calcium,Total 8.7 mg/dL (8.5-10.1); Chloride 124 mmol/L (98-107); Creatinine, Serum 1.04 mg/dL (0.70-1.30); EST Glomerular Filtration Rate 95 mL/min (>60); Est Glom Filt Rate - Afr Amer 115 mL/min (>60); Estimated Creatinine Clearance 106.37 ml/min; Glucose 105 mg/dL (74-106); Potassium 2.8 mmol/L (3.5-5.1); Sodium Level 148 mmol/L (136-145)
[2022-12-31 07:32] LABS: Absolute Lymphocyte Count 0.54 X10^3/uL (0.83-4.51); Absolute Neutrophil Count 9.8 X10^3/uL (2.0-7.7); Basophil# 0.01 X10^3/uL; Basophil% 0.1 % (0-1); Eosinophil# 0.01 X10^3/uL; Eosinophils% 0.1 % (0-5); Hematocrit 32.5 % (40-54); Hemoglobin 11.3 g/dL (13.0-16.5); Lymphocyte # 0.54 X10^3/ul (0.83-4.51); Lymphocyte % 4.8 % (19-41); Mean Corp Hgb Conc 34.8 g/dL (32-36); Mean Corpuscular Hgb 26.7 pg (27.0-32.0); Mean Corpuscular Volume 76.8 fL (80-94); Mean Platelet Vol. 9.2 fl (6.2-12.0); Monocyte# 0.75 X10^3/uL; Monocyte% 6.7 % (0-10); NRBC Flagged by Analyzer 0 % (0-5); Neutrophil # 9.81 X10^3/uL (2.7-7.7); Neutrophil % 87.9 % (47-70); POSITIVE DIFFERENTIAL YES; Platelet Count 349 K/mm3 (150-450); RBC Distribution Width CV 15.5 % (11.6-14.6); RBC Distribution Width SD 41.7 fl (35.1-43.9); Red Blood Count 4.23 M/mm3 (4.6-6.2); White Blood Count 11.2 K/mm3 (4.4-11.0)
[2022-12-31 07:39] LABS: Differential Indicated SCAN CRITERIA MET
[2022-12-31 08:18] LABS: Differential Comment S
[2022-12-31 08:40] LABS: Bedside Glucose 94 mg/dL (74-106)
[2022-12-31] MEDS: Insulin Glargine-YFGN 100 UNIT/ML Pen 25 UNIT SC ×2 (08:52→21:42)
[2022-12-31] MEDS: 0.9% Normal Saline 1,000 ML 125 ML IV ×2 (08:54→16:27)
[2022-12-31] MEDS: Enoxaparin 80 MG/0.8 ML Syringe 70 MG SC (08:56)
[2022-12-31] MEDS: Insulin Lispro 100 UNIT/ML INSULN.PEN 10 UNIT SC ×3 (09:01→17:20)
[2022-12-31 09:10] LABS: Bedside Glucose 121 mg/dL (74-106)
--- NOTE | 2022-12-31 10:51 | PCM.PN.HOSP ---
Reason for Visit Reason for Visit: Diagnoses Type 2 diabetes mellitus with ketoacidosis without coma (12/30/22) Subjective Subjective Patient was seen and examined today, he is off the insulin drip, his white count today is 11.2, he remains tachycardic however, I have placed him back on basal insulin, he is alert and responds appropriately to questions at this time, he tells me that his continuous glucose monitor is not functioning properly, his grandmother yesterday told me he does not do fingerstick blood sugars. He is not sure if he has another continuous glucose monitor he can apply to his body, he does not think it is his phone connection and that is causing the problem with it. Objective Data Objective Data Vital Signs: Vital Signs Temp Pulse Resp BP Pulse Ox O2 Del Method 99.8 F H 124 H 17 116/71 100 Room Air 12/31/22 09:00 12/31/22 09:00 12/31/22 09:00 12/31/22 09:00 12/31/22 09:00 12/31/22 09:00 Oxygen Delivery Method Room Air Weight: 67.5 kg Body Mass Index (BMI) 19.3 Intake & Output: Intake and Output for Last 24 Hours 12/29/22 12/30/22 12/31/22 23:59 23:59 23:59 Intake Total 5032.52 / 5035.42 2293.51 / 2293.51 Output Total 2300 / 3900 2100 / 2100 Balance 2732.52 / 1135.42 193.51 / 193.51 Lab / Micro Data Result Diagrams: 12/31/22 03:13 12/31/22 07:00 Labs: Laboratory Results - last 24 hr 12/30/22 10:55: WBC 28.0 H, RBC 5.63, Hgb 14.7, Hct 46.1, MCV 81.9, MCH 26.1 L, MCHC 31.9 L, RDW Std Deviation 43.1, RDW Coeff of Rabia 14.7 H, Plt Count 711 H, MPV 9.4, Immature Gran % (Auto) 1.800 H, Neut % (Auto) 66.8, Lymph % (Auto) 23.2, [place] % (Auto) 7.5, Eos % (Auto) 0.1, Baso % (Auto) 0.6, Absolute Neuts (auto) 18.7 H, Absolute Lymphs (auto) 6.50 H, Nucleated RBC % 0, Diff Path Review March12/30/22 10:55: PT 16.9 H, INR 1.4, APTT 32.5 12/30/22 10:55: Sodium 133 L, Potassium 4.4, Chloride 103, Carbon Dioxide 3.0 L*, Anion Gap 27 H, BUN 17, Creatinine 1.35 H, Estim Creat Clear Calc 90.69, Est GFR (MDRD) Af Amer 85, Est GFR (MDRD) Non-Af 70, BUN/Creatinine Ratio 12.6, Glucose 706 H*, Calcium 10.4 H 12/30/22 10:55: Acetone Level LARGE H 12/30/22 10:55: Lactic Acid 3.2 H* 12/30/22 11:37: POC Glucose > 500 H* 12/30/22 12:15: Urine Color Straw, Urine Clarity Clear, Urine pH 5.0, Ur Specific [place] 1.020, Urine Protein 30 H, Urine Glucose (UA) 1000 H, Urine Ketones 150 A*, Urine Occult Blood 10 H, Urine Nitrite Negative, Urine Bilirubin Negative, Urine Urobilinogen Normal, Ur Leukocyte Esterase Negative, Urine RBC 0 SEEN, Urine WBC 0 SEEN, Ur Squamous Epith Cells 0 SEEN, Urine Bacteria 0 SEEN, Urine Mucus 0 SEEN 12/30/22 14:05: POC Glucose > 500 H* 12/30/22 15:20: POC Glucose 489 H* 12/30/22 15:25: Sodium 143, Potassium 3.4 L, Chloride 115 H, Carbon Dioxide 5.0 L*, Anion Gap 23 H, BUN 18, Creatinine 1.06, Estim Creat Clear Calc 105.91, Est GFR (MDRD) Af Amer 112, Est GFR (MDRD) Non-Af 93, BUN/Creatinine Ratio 17.0, Glucose 487 H*, Calcium 9.4 12/30/22 15:25: Lactic Acid 1.6 12/30/22 16:04: POC Glucose 444 H 12/30/22 18:00: POC Glucose 269 H 12/30/22 18:59: POC Glucose 248 H 12/30/22 19:00: Sodium 147 H, Potassium 3.4 L, Chloride 122 H, Carbon Dioxide 4.0 L*, Anion Gap 21 H, BUN 18, Creatinine 0.83, Estim Creat Clear Calc 135.26, Est GFR (MDRD) Af Amer 150, Est GFR (MDRD) Non-Af 124, BUN/Creatinine Ratio 21.8 H, Glucose 254 H, Calcium 8.9 12/30/22 19:57: POC Glucose 200 H 12/30/22 21:04: POC Glucose 187 H 12/30/22 22:03: POC Glucose 176 H 12/30/22 23:04: POC Glucose 180 H 12/30/22 23:11: Sodium 147 H, Potassium 3.2 L, Chloride 122 H, Carbon Dioxide 8.0 L*, Anion Gap 17 H, BUN 16, Creatinine 1.01, Estim Creat Clear Calc 111.15, Est GFR (MDRD) Af Amer 119, Est GFR (MDRD) Non-Af 98, BUN/Creatinine Ratio 15.8, Glucose 198 H, Calcium 9.1 12/30/22 23:59: POC Glucose 186 H 12/31/22 01:11: POC Glucose 166 H 12/31/22 02:08: POC Glucose 172 H 12/31/22 03:05: POC Glucose 157 H 12/31/22 03:13: Sodium 148 H, Potassium 2.8 L, Chloride 123 H, Carbon Dioxide 13.0 L, Anion Gap 12, BUN 15, Creatinine 1.16, Estim Creat Clear Calc 96.78, Est GFR (MDRD) Af Amer 101, Est GFR (MDRD) Non-Af 84, BUN/Creatinine Ratio 12.9, Glucose 161 H, Calcium 8.9 12/31/22 03:13: WBC 11.2 H, RBC 4.23 L, Hgb 11.3 L, Hct 32.5 L, MCV 76.8 L D, MCH 26.7 L, MCHC 34.8 D, RDW Std Deviation 41.7, RDW Coeff of Rabia 15.5 H, Plt Count 349, MPV 9.2, Immature Gran % (Auto) 0.400, Neut % (Auto) 87.9 H, Lymph % (Auto) 4.8 L, [place] % (Auto) 6.7, Eos % (Auto) 0.1, Baso % (Auto) 0.1, Absolute Neuts (auto) 9.8 H, Absolute Lymphs (auto) 0.54 L, Nucleated RBC % 0, Differential Comment S 12/31/22 04:09: POC Glucose 156 H 12/31/22 05:10: POC Glucose 135 H 12/31/22 05:57: POC Glucose 120 H 12/31/22 06:59: POC Glucose 103 12/31/22 07:00: Sodium 148 H, Potassium 2.8 L, Chloride 124 H, Carbon Dioxide 17.0 L, Anion Gap 7, BUN 12, Creatinine 1.04, Estim Creat Clear Calc 106.37, Est GFR (MDRD) Af Amer 115, Est GFR (MDRD) Non-Af 95, BUN/Creatinine Ratio 11.5, Glucose 105, Calcium 8.7 12/31/22 08:03: POC Glucose 94 12/31/22 08:51: POC Glucose 121 H ABG Data ABG results: ABG 12/30/22 11:29 Specimen Type ART Sample Site L Brach pH 6.61 L* Bicarbonate Actual 1.3 L Total CO2 < 5 Base Excess < -30 L O2 Saturation 95 ABG pCO2 12.5 L* ABG pO2 175 H O2 Delivery Device Room Air Crit Call To/Read Back Yes Blood Gas Notified Whom schwiger Radiography Diagnostic Testing: Radiology Impression Brain CT 12/30/22 10:49 IMPRESSION: No acute intracranial abnormality. No interval change. Electronically Signed: Reji Kim MD at 11:21 EST , Chest X-Ray 12/30/22 11:10 IMPRESSION: No acute cardiopulmonary abnormality. Electronically Signed: Reji Kim MD at 11:22 EST , Chest X-Ray 12/30/22 13:20 IMPRESSION: No acute cardiopulmonary abnormality. No interval change. Electronically Signed: Reji Kim MD at 13:47 EST , Physical Exam Const alert, oriented x3, no apparent distress and healthy appearing General Appearance: cooperative, well kempt and well developed Orientation / Consciousness: awake, oriented to person, oriented to place and oriented to time HEENT normocephalic and moist oral mucous membranes Eyes PERRL, EOMs intact bilaterally and conjunctivae normal Neck supple, no JVD, thyroid normal and no carotid bruits General: trachea midline Resp normal respiratory effort and clear to auscultation bilaterally Auscultation: Negative for rales, rhonchi or wheezes Cardio regular rate, regular rhythm, no murmurs, no rub and no gallops Cardio Narrative: Heart rate and rhythm is tachycardic GI normal to inspection, nondistended, normoactive bowel sounds, soft to palpation, non-tender and non-distended Extremity normal to inspection and no clubbing, cyanosis or edema Skin no rashes or lesions noted General Skin Exam: no breakdown Neuro oriented x3, CN's II-XII intact bilaterally, moves all extremities, no focal motor deficits and no sensory deficits noted Sensorium / Orientation: awake, alert, oriented to person, oriented to place and oriented to time Speech: speech normal Psych affect normal Assessment & Plan Assessment/Plan (1) Diabetic ketoacidosis: PLAN: Plan 1. Diabetic ketoacidosis-resolving at this time, continue IV fluids due to tachycardia, patient has been encouraged to intake oral fluids, blood sugars will be monitored, I started him back on Lantus-he states he takes 16 units twice a day, I put him on 25 units twice a day. He most likely will need to remain in the hospital and be reevaluated tomorrow, patient's white blood cell count has decreased, I do not see signs of infection in this patient. I will change the patient over to PCU status for now. 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 His grandmother is the only one that supervises his medical care at home and she is not there full-time. Total clinical time spent by myself addressing the patient's medical needs, reviewing all the data, and collaborating with patient's care team: 50 minutes Charges/Coding Visit Charges Inpatient E&M: 39208 Subs Hosp L3
[2022-12-31] MEDS: Insulin Lispro 100 UNIT/ML INSULN.PEN SC ×3 (12:26→21:43)
[2022-12-31 12:45] LABS: Bedside Glucose 219 mg/dL (74-106)
[2022-12-31 12:50] LABS: Anion Gap 8 (5-15); BUN 11 mg/dL (7-18); BUN/Creat Ratio 11.3 RATIO (10-20); Calcium,Total 8.5 mg/dL (8.5-10.1); Chloride 116 mmol/L (98-107); Creatinine, Serum 0.98 mg/dL (0.70-1.30); EST Glomerular Filtration Rate 102 mL/min (>60); Est Glom Filt Rate - Afr Amer 123 mL/min (>60); Estimated Creatinine Clearance 112.88 ml/min; Glucose 224 mg/dL (74-106); Potassium 2.7 mmol/L (3.5-5.1); Sodium Level 141 mmol/L (136-145)
[2022-12-31] MEDS: Potassium Chloride Oral Tablet 20 MEQ 60 MEQ PO (13:20)
[2022-12-31] MEDS: Rivaroxaban 20 MG Tablet PO (17:19)
[2022-12-31 17:36] LABS: Bedside Glucose 195 mg/dL (74-106)
[2022-12-31 19:15] LABS: Anion Gap 11 (5-15); BUN 7 mg/dL (7-18); BUN/Creat Ratio 6.5 RATIO (10-20); Calcium,Total 8.6 mg/dL (8.5-10.1); Chloride 113 mmol/L (98-107); Creatinine, Serum 1.07 mg/dL (0.70-1.30); EST Glomerular Filtration Rate 92 mL/min (>60); Est Glom Filt Rate - Afr Amer 111 mL/min (>60); Estimated Creatinine Clearance 103.39 ml/min; Glucose 239 mg/dL (74-106); Potassium 2.7 mmol/L (3.5-5.1); Sodium Level 140 mmol/L (136-145)
[2022-12-31] MEDS: Potassium Chloride 10mEq/100mL 10 MEQ/100 ML IV.SOLN. 100 MEQ IV BOLUS ×2 (21:29→22:54)
[2022-12-31 23:25] LABS: Bedside Glucose 180 mg/dL (74-106)
[2023-01-01] VITALS (7 sets, daily range): BP systolic 106–111; BP diastolic 60–77; PULSE 77–111; RESP 16–18; TEMP 36.6–37; O2SAT 98–100
[2023-01-01] MEDS: Potassium Chloride 10mEq/100mL 10 MEQ/100 ML IV.SOLN. 100 MEQ IV BOLUS ×5 (00:15→09:37)
[2023-01-01] MEDS: 0.9% Normal Saline 1,000 ML 125 ML IV ×3 (00:17→16:10)
[2023-01-01] MEDS: Acetaminophen 325 MG Tablet 650 MG PO ×2 (00:21→06:32)
[2023-01-01] MEDS: 0.9% Saline Lock 10 ML Syringe IV (02:49)
[2023-01-01] MEDS: Insulin Lispro 100 UNIT/ML INSULN.PEN SC ×2 (08:09→22:06)
[2023-01-01] MEDS: Insulin Lispro 100 UNIT/ML INSULN.PEN 10 UNIT SC (08:09)
[2023-01-01] MEDS: Potassium Chloride Oral Tablet 20 MEQ 60 MEQ PO (09:38)
[2023-01-01 11:15] LABS: Bedside Glucose 252 mg/dL (74-106)
[2023-01-01] MEDS: Insulin Glargine-YFGN 100 UNIT/ML Pen 25 UNIT SC ×2 (11:31→22:06)
[2023-01-01 11:55] LABS: Bedside Glucose 102 mg/dL (74-106)
[2023-01-01 13:24] LABS: Pathologist Review Reviewed
--- NOTE | 2023-01-01 14:13 | PN.HOSP_ITS ---
Reason for Visit Reason for Visit: Diagnoses Type 2 diabetes mellitus with ketoacidosis without coma (12/30/22) Subjective Subjective Patient seen and examined. He had no active complaints. His blood sugar has been fluctuating and was down in the 60s this morning but that resolved after he was given some orange juice. Blood sugar later this afternoon was high and patient states usually runs in the 300s and 400s. He states this is also for his insulin pump has not been working and so has not been able to monitor his sugars at home. Patient tells me that he performs finger upper EXTR check his sugar levels 4 times daily but this was disputed by his grandmother was sitting by him. He denies any fever, chills, nausea, vomiting, abdominal pain or diarrhea. Review of systems otherwise negative. He has otherwise remained hemodynamically stable. Objective Data Objective Data Vital Signs: Vital Signs Temp Pulse Resp BP Pulse Ox O2 Del Method 98.6 F 86 16 106/77 98 Room Air 01/01/23 08:14 01/01/23 08:14 01/01/23 08:14 01/01/23 08:14 01/01/23 11:52 01/01/23 08:18 Oxygen Delivery Method Room Air Weight: 168 lb 13.985 oz Body Mass Index (BMI) 19.3 Intake & Output: Intake and Output for Last 24 Hours 12/30/22 12/31/22 01/01/23 23:59 23:59 23:59 Intake Total 5032.52 / 5035.42 3938.76 / 3938.76 2454.17 / 2454.17 Output Total 2300 / 3900 3800 / 3800 Balance 2732.52 / 1135.42 138.76 / 138.76 2454.17 / 2454.17 Medical Nutrition Assessment Dietitian: Malnutrition Criteria Met Start: 12/31/22 14:42 Freq: Status: Active Protocol: Document 12/31/22 14:42 CHRISTY (Rec: 12/31/22 14:42 CHRISTY [id number]) Nutrition Malnutrition Evidence of Malnutrition Exists Yes Malnutrition (moderate): Chronic Evidenced By Weight Loss (Severe),Physical Changes (Moderate) Clinical Problem Chronic Disease or Condition Related Malnutrition Etiology related to physiological changes impacting oral intakes and weight loss Signs/Symptoms as evidenced by significant weight loss of 6.3% in less than one month and NFPA indicating mild to moderate muscle and fat loss (temples, buccal region, shoulders, etc. ). Status Active Problem Recommendation Dietitian Recommendations/Changes Continue with CHO Controlled diet. Pt not interested in ONS use at this time. Encouraged good oral intakes. Will continue to monitor oral intakes and diet tolerance, and implement additional interventions as needed. Lab / Micro Data Result Diagrams: 12/31/22 03:13 01/01/23 04:06 Labs: Laboratory Results - last 24 hr 12/30/22 10:55: Diff Path Review Reviewed 12/31/22 17:17: POC Glucose 195 H 12/31/22 18:46: Sodium 140, Potassium 2.7 L*, Chloride 113 H, Carbon Dioxide 16.0 L, Anion Gap 11, BUN 7, Creatinine 1.07, Estim Creat Clear Calc 103.39, Est GFR (MDRD) Af Amer 111, Est GFR (MDRD) Non-Af 92, BUN/Creatinine Ratio 6.5 L, Glucose 239 H, Calcium 8.6 12/31/22 21:19: POC Glucose 180 H 01/01/23 04:06: Potassium 3.0 L 01/01/23 08:08: POC Glucose 252 H 01/01/23 11:29: POC Glucose 102 Micro: Microbiology 12/30/22 12:00 Blood Culture (Wb) - Left Hand Blood Culture - Preliminary No growth in 48 hours. 12/30/22 10:55 Blood Culture (Wb) - Anticubital Right Blood Culture - Preliminary No growth in 48 hours. Physical Exam Const alert, oriented x3 and no apparent distress HEENT head/scalp atraumatic, moist oral mucous membranes and oropharynx normal Head and Scalp: normocephalic Mouth: oral and palatal mucosa normal Eyes PERRL, EOMs intact bilaterally and conjunctivae normal Neck no lymphadenopathy and supple Resp normal respiratory effort, no retractions, no use of accessory muscles and clear to auscultation bilaterally Cardio regular rate, regular rhythm, S1 normal heart sound, S2 normal heart sound and no murmurs GI normal to inspection, nondistended, normoactive bowel sounds, soft to palpation, non-tender and non-distended Extremity normal to inspection, full ROM and no clubbing, cyanosis or edema Neuro oriented x3, CN's II-XII intact bilaterally, moves all extremities and no focal motor deficits Sensorium / Orientation: awake and alert Motor Exam: strength 5/5 throughout Psych affect normal Assessment & Plan Assessment/Plan (1) Diabetic ketoacidosis: (2) Acidosis, lactic: PLAN: Plan #TYpe 2 diabetes mellitus * was admitted with DKA, but that has resolved * diabetes is poorly controlled. He says he doesnt have sensors from his insulin pump and so has not been monitoring his blood sugars at home. HE says his blood sugars are usually in the 300s and 400s * ISS. Accuchecks ACHS * #Lactic acidosis: resolved #Hypokalemia: K is 3. Will replace and trend. #Anion gap metabolic acidosis: resolved. 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 Total time spent on seeing patient, reviewing chart, evaluation and management and documentation: 37 mins Charges/Coding Visit Charges Inpatient E&M: 96139 Subs Hosp L2
--- NOTE | 2023-01-01 14:20 | CASEMGMT ---
VERONA FONTANEZ Readmission Note Previous Admission:? 12/19/2022-12/20/22? Diagnosis:?DKA DC Disposition: Home Current Admission? Current Diagnosis: DKA Pt admitted with DKA. Pt states he has not been checking his blood sugars because he is on his last sensor for the Freestyle Niru 2 and it malfunctioned. He states [facility] has requested a rx to his physician but has not heard back. Pt does have a regular BGM but has not been using despite having supplies to do so. Pt states he has been still taking insulin and basing his dosing on how he has been eating. He states he does have sufficient supply of insulin and needles. Pt reports he did follow up post hospitalization with future PCP office on Dec 22. Pt is aware of upcoming appts for March 23 at 11am with and February 21 at 1:30 with ARCHANA Raymond in endocrinology. Pt states he does have transportation for these appts and this is being provided by his mother's friend. Discussed HHC with patient to have a nurse check in with him on his diabetes, pt states his aunt whose home he lives in would not allow this. Discussed Patient Link with patient and he did agree to this. Referral placed. Pt states he does have transportation home from this hospital stay and denies needs except for the sensors for his Niru. DC Plan: Home with Patient Link TC to [facility], spoke with staff member who states that they have sent a request to a and provided phone number. TC to this number, this is the hospitalist of [facility] and Yuliya is a PA who will not order additional supplies. TC back to [facility] to make aware. TC to office, spoke with Steven to request that a rx be sent in for the sensors. She states that endocrinology sent in an order today at 1:51pm as pt called in with this request. Steven confirms pt upcoming appts and confirms that pt did present to f/u appt on 12/22. TC back to Chon at [facility], who confirms the receipt of the sensor rx. He states there is no cost to the patient. VERONA FONTANEZ back into pt room to make aware. He states his grandmother will be coming to visit him tomorrow. Asked him to get in touch with her to pick the sensors up prior to coming to the hospital so that it can be applied and made sure functioning prior to dc. Pt states she is working tonight but he will get in touch with her after work or prior to her visiting tomorrow. Pt did not want want RN HUSEYIN to call her as she does not get off of work until 8p-10p, he will handle this. Pt is aware RN HUSEYIN will check back with him in the morning.
[2023-01-01 17:06] LABS: Bedside Glucose 139 mg/dL (74-106)
[2023-01-01] MEDS: Rivaroxaban 20 MG Tablet PO (17:32)
[2023-01-01 22:30] LABS: Bedside Glucose 242 mg/dL (74-106)
[2023-01-02] MEDS: 0.9% Normal Saline 1,000 ML 125 ML IV ×2 (00:13→06:23)
[2023-01-02 00:16] VITALS: BP 105/63; PULSE 102; RESP 18; TEMP 36.7; O2SAT 100
[2023-01-02 00:56] LABS: Bedside Glucose 125 mg/dL (74-106)
[2023-01-02 03:32] VITALS: BP 103/57; PULSE 78; RESP 18; TEMP 36.4; O2SAT 99
[2023-01-02 05:26] VITALS: BMI 22.3
[2023-01-02 06:28] LABS: Absolute Lymphocyte Count 1.46 X10^3/uL (0.83-4.51); Basophil# 0.02 X10^3/uL; Basophil% 0.4 % (0-1); Eosinophil# 0.04 X10^3/uL; Eosinophils% 0.8 % (0-5); Hematocrit 30.8 % (40-54); Hemoglobin 10.4 g/dL (13.0-16.5); Lymphocyte # 1.46 X10^3/ul (0.83-4.51); Lymphocyte % 29.9 % (19-41); Mean Corp Hgb Conc 33.8 g/dL (32-36); Mean Corpuscular Hgb 26.1 pg (27.0-32.0); Mean Corpuscular Volume 77.2 fL (80-94); Mean Platelet Vol. 8.8 fl (6.2-12.0); Monocyte% 6.1 % (0-10); NRBC Flagged by Analyzer 0 % (0-5); Neutrophil # 3.04 X10^3/uL (2.7-7.7); Neutrophil % 62.4 % (47-70); Platelet Count 214 K/mm3 (150-450); RBC Distribution Width CV 15.5 % (11.6-14.6); RBC Distribution Width SD 43.1 fl (35.1-43.9); Red Blood Count 3.99 M/mm3 (4.6-6.2); White Blood Count 4.9 K/mm3 (4.4-11.0)
[2023-01-02 06:55] LABS: Anion Gap 7 (5-15); BUN 9 mg/dL (7-18); BUN/Creat Ratio 13.8 RATIO (10-20); Calcium,Total 7.6 mg/dL (8.5-10.1); Chloride 114 mmol/L (98-107); Creatinine, Serum 0.65 mg/dL (0.70-1.30); EST Glomerular Filtration Rate 163 mL/min (>60); Est Glom Filt Rate - Afr Amer 197 mL/min (>60); Estimated Creatinine Clearance 198.68 ml/min; Glucose 182 mg/dL (74-106); Sodium Level 143 mmol/L (136-145)
[2023-01-02 06:56] LABS: Bedside Glucose 169 mg/dL (74-106)
[2023-01-02 07:48] VITALS: BP 98/69; PULSE 86; RESP 18; TEMP 36.7; O2SAT 100
[2023-01-02] MEDS: Insulin Lispro 100 UNIT/ML INSULN.PEN 10 UNIT SC ×2 (08:45→16:01)
[2023-01-02] MEDS: Potassium Chloride Oral Tablet 20 MEQ 60 MEQ PO (08:45)
[2023-01-02] MEDS: Insulin Lispro 100 UNIT/ML INSULN.PEN SC ×2 (08:46→16:01)
--- NOTE | 2023-01-02 11:29 | WOUNDNOTE ---
wound photo: sacrum
[2023-01-02 12:11] LABS: Bedside Glucose 76 mg/dL (74-106)
[2023-01-02 12:30] LABS: Bedside Glucose 97 mg/dL (74-106)
--- NOTE | 2023-01-02 13:41 | CASEMGMT ---
Addendum entered by Margoth Jeronimo 01/02/23 15:41: VERONA FONTANEZ back into pt room, pt grandmother did obtain censors and she is putting on patient currently. Pt states it will take an hour before it will be ready to use. Hospitalist updated censors obtained. Addendum entered by Margoth Jeronimo 01/02/23 15:39: 1555-VERONA FONTANEZ in to pt room and made pt and grandmother aware that pt cannot be dc'd until censor is obtained. Grandmother upset and states she will get them. Original Note: VERONA FONTANEZ in to pt room, pt grandmother present. She states she did not have time to get pt sensors from [facility]. She also states that for pt to have transportation home, he will need dc'd today before a little after 2pm. Updated hospitalist. Reinforced importance of picking up censors. Discussed [facility] again, pt does not want this. TC to Wilfredo at [facility], they are unable to assist pt if he is not willing to allow visits either. Ruslan on floor to discuss Patient Link with patient.
[2023-01-02 14:10] VITALS: BP 100/72; PULSE 100; RESP 18; TEMP 36.9; O2SAT 100
[2023-01-02 14:11] VITALS: BP 100/72; PULSE 100; RESP 18; TEMP 36.9; O2SAT 100
--- NOTE | 2023-01-02 15:20 | NURSING ---
family bedside with continuous glucose meter supplies. states placed new sensor and it will take an hr to boot up. picc line dc'ed as ordered. discussed discharge plan and transport. family at bedside seeking transport.
--- NOTE | 2023-01-02 15:38 | PCM.DC.SUM ---
Providers Date of Admission: 12/30/22 Primary Care Physician: Dr. Mario Reyes MD Reason For Visit: DKA Diagnosis Discharge Diagnosis (1) Diabetic ketoacidosis: Status: Acute Code(s): E11.10 - Type 2 diabetes mellitus with ketoacidosis without coma (2) Acidosis, lactic: Status: Acute Code(s): E87.20 - Acidosis, unspecified Plan #TYpe 2 diabetes mellitus was admitted with DKA, but that has resolved diabetes is poorly controlled. He says he doesnt have sensors from his insulin pump and so has not been monitoring his blood sugars at home. HE says his blood sugars are usually in the 300s and 400s ISS. Accuchecks ACHS #Lactic acidosis: resolved #Hypokalemia: K is 3. Will replace and trend. #Anion gap metabolic acidosis: resolved. 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 Total time spent on seeing patient, reviewing chart, evaluation and management and documentation: 37 mins Medications at Discharge Home Medications blood sugar diagnostic (IvaluaTouch Verio test strips) #200 ea 09/08/21 pen needle, diabetic 32 gauge x 5/32 (BD Ultra-Fine Lorin Pen Needle) #360 ea 09/08/21 flash glucose sensor (FreeStyle Niru 14 Day Sensor kit) #2 ea 10/11/21 insulin lispro 100 unit/mL subcutaneous pen (Humalog KwikPen (U-100) Insulin) 25 unit subcut TIDAC DM 07/24/22 insulin lispro 100 unit/mL subcutaneous pen (Humalog KwikPen (U-100) Insulin) See Protocol subcut ACHS DM 07/24/22 colchicine 0.6 mg tablet 0.6 mg PO BID 09/17/22 rivaroxaban 20 mg tablet (Xarelto) 20 mg PO DAILY 09/17/22 insulin glargine-yfgn 100 unit/mL (3 mL) subcutaneous pen 16 unit subcut BID 12/19/22 insulin glargine-yfgn 100 unit/mL (3 mL) subcutaneous pen 30 unit (0.3 mL) subcut BID #0 mL 12/20/22 potassium chloride 20 mEq tablet,extended release(part/cryst) (Klor-Con M) 20 meq PO BIDCM #60 tabs 12/20/22 potassium chloride 20 mEq tablet,extended release 40 meq PO DAILY 10 days #20 tabs 01/02/23 Hospital Course Operations None Procedures None Summary of Care Provided Minutes Spent on Discharge: 45 Hospital Course: Patient is a 22-year-old male with a past medical history as outlined including poorly controlled type 2 diabetes mellitus with recurrent DKA. He presented to the ED on 12/30/2022 with a complaint of altered mental status. He was lethargic and unresponsive. On admission pH was 6.61 and PCO2 was 12.5 with bicarb of 3 and anion gap of 27. Blood glucose was 706 and urinalysis showed showed elevated urine ketones, and urine glucose. He was admitted to the ICU and managed for DKA due to noncompliance. He was started on insulin drip and bicarb drip. Apparently, patient's continuous glucose monitor had not been working well because the sensors were malfunctioning so he had not been able to monitor his sugar at home to know how much insulin to dose himself. DKA resolved and anion gap closed. Blood sugars trended downwards. Hospital course was complicated by hypoxia kalemia which was replaced. 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 He remained stable and was discharged home on 01/02/2023. Patient was counseled to follow-up with his manufacturing team member and his primary care doctor and to be compliant with his insulin. Of note his A1c was 12.6. Patient seen and examined prior to discharge. He had no active complaints and had an uneventful night. Review of systems otherwise negative. Labs and vitals reviewed. Home medication reviewed and reconciled. Physical Exam Const alert, oriented x3, no apparent distress and healthy appearing General Appearance: cooperative, comfortable, well kempt and well developed Orientation / Consciousness: awake, oriented to person, oriented to place and oriented to time Exam Limitations: no limitations HEENT normocephalic, head/scalp atraumatic, hearing grossly normal bilaterally, moist oral mucous membranes and oropharynx normal Mouth: oral and palatal mucosa normal Eyes PERRL, EOMs intact bilaterally and conjunctivae normal Neck no lymphadenopathy, supple, no JVD, thyroid normal and no carotid bruits Resp normal respiratory effort, no retractions, no use of accessory muscles and clear to auscultation bilaterally Auscultation: Negative for rales, rhonchi or wheezes Cardio regular rate, regular rhythm, S1 normal heart sound, S2 normal heart sound, no murmurs, no rub and no gallops GI normal to inspection, nondistended, normoactive bowel sounds, soft to palpation, non-tender and non-distended Extremity normal to inspection, full ROM and no clubbing, cyanosis or edema Skin no rashes or lesions noted General Skin Exam: no breakdown Neuro oriented x3, CN's II-XII intact bilaterally, moves all extremities, no focal motor deficits and no sensory deficits noted Sensorium / Orientation: awake, alert, oriented to person, oriented to place and oriented to time Speech: speech normal Motor Exam: strength 5/5 throughout Psych affect normal Medical Records Data Medical Nutrition Assessment Dietitian: Malnutrition Criteria Met Start: 12/31/22 14:42 Freq: Status: Active Protocol: Document 12/31/22 14:42 [facility] (Rec: 12/31/22 14:42 [facility] [id number]) Nutrition Malnutrition Evidence of Malnutrition Exists Yes Malnutrition (moderate): Chronic Evidenced By Weight Loss (Severe),Physical Changes (Moderate) Clinical Problem Chronic Disease or Condition Related Malnutrition Etiology related to physiological changes impacting oral intakes and weight loss Signs/Symptoms as evidenced by significant weight loss of 6.3% in less than one month and NFPA indicating mild to moderate muscle and fat loss (temples, buccal region, shoulders, etc. ). Status Active Problem Recommendation Dietitian Recommendations/Changes Continue with CHO Controlled diet. Pt not interested in ONS use at this time. Encouraged good oral intakes. Will continue to monitor oral intakes and diet tolerance, and implement additional interventions as needed. Weight / BMI Weight Weight: 173 lb 11.588 oz Body Mass Index (BMI) 22.3 ABG / Lab / Microbiology Data Result Diagrams: 01/02/23 06:05 01/02/23 06:05 Laboratory: Laboratory Results - last 24 hr 01/01/23 16:47: POC Glucose 139 H 01/01/23 22:05: POC Glucose 242 H 01/02/23 00:21: POC Glucose 125 H 01/02/23 06:05: WBC 4.9, RBC 3.99 L, Hgb 10.4 L, Hct 30.8 L, MCV 77.2 L, MCH 26.1 L, MCHC 33.8, RDW Std Deviation 43.1, RDW Coeff of Rabia 15.5 H, Plt Count 214, MPV 8.8, Immature Gran % (Auto) 0.400, Neut % (Auto) 62.4, Lymph % (Auto) 29.9, [place] % (Auto) 6.1, Eos % (Auto) 0.8, Baso % (Auto) 0.4, Absolute Neuts (auto) 3.0, Absolute Lymphs (auto) 1.46, Nucleated RBC % 0 01/02/23 06:05: Sodium 143, Potassium 3.0 L, Chloride 114 H, Carbon Dioxide 22.0, Anion Gap 7, BUN 9, Creatinine 0.65 L, Estim Creat Clear Calc 198.68, Est GFR (MDRD) Af Amer 197, Est GFR (MDRD) Non-Af 163, BUN/Creatinine Ratio 13.8, Glucose 182 H, Calcium 7.6 L 01/02/23 06:33: POC Glucose 169 H 01/02/23 11:44: POC Glucose 76 01/02/23 12:09: POC Glucose 97 Microbiology: Microbiology 12/30/22 12:00 Blood Culture (Wb) - Left Hand Blood Culture - Preliminary No growth in 48 hours. 12/30/22 10:55 Blood Culture (Wb) - Anticubital Right Blood Culture - Preliminary No growth in 48 hours. D/C Instructions Discharge Diet: Low fat / Low cholesterol Discharge Activity: Return to Normal Activity Weight Bearing Status: Weight bearing as tolerated Call your doctor if you observe: Fever of 101 or Higher, Shortness of breath, Dizziness, Swelling in the ankles, Chest pain and Increased palpitations (irregular heartbeat) Meaningful Use Info Meaningful Use Diagnoses (Choose all that apply): None applicable Discharge Plan Admission Admit Date/Time: 12/30/22 12:10 Primary Reason for Your Visit: DKA Attending Provider: Edilma Dennison Primary Care Provider: Mario Reyes Consulting Providers: Satish Be Patient Instructions: Ketoacidosis Ch Discharge Orders/Prescriptions Prescriptions: New potassium chloride 20 mEq tablet extended release 40 meq PO DAILY 10 Days Qty: 20 0RF Continued (DME) OneTouch Verio test strips Strip See Rx Instructions .ROUTE .MEDSUPPLY Qty: 200 6RF Rx Instructions: 4x/day (DME) pen needle, diabetic [BD Ultra-Fine Lorin Pen Needle] 32 gauge x 5/32 needle See Rx Instructions .ROUTE .MEDSUPPLY Qty: 360 6RF Rx Instructions: As directed (DME) FreeStyle Niru 14 Day Sensor Kit See Rx Instructions .ROUTE .MEDSUPPLY Qty: 2 5RF Rx Instructions: As directed insulin lispro [Humalog KwikPen Insulin] 100 unit/mL insulin pen See Protocol subcut ACHS Protocol: 1. Sliding Scale Insulin Low Dosing Condition: 150-224 mg/dl = 1 unit Condition: 225-299 mg/dl = 2 units Condition: 300-374 mg/dl = 3 units Condition: 375-499 mg/dl = 4 units Condition: Greater than 449 call physician Protocol Text: - Use for Total Daily Dose of Insulin 15-27 units - Thin, elderly, renal patients LOW DOSING ALGORITHM insulin lispro [Humalog KwikPen Insulin] 100 unit/mL insulin pen 25 unit subcut TIDAC colchicine 0.6 mg tablet 0.6 mg PO BID Label Comments: TAKE 1 TABLET BY MOUTH TWICE DAILY Xarelto 20 mg Tablet 20 mg PO DAILY Rx Instructions: must administer with evening meal insulin glargine-yfgn 100 unit/mL (3 mL) insulin pen 16 unit subcut BID potassium chloride [Klor-Con M20] 20 mEq Tablet,Er Particles/Crystals 20 meq PO BIDCM Qty: 60 0RF insulin glargine-yfgn 100 unit/mL (3 mL) Insulin Pen 30 unit subcut BID Qty: 0 0RF Discontinued cefdinir 300 mg capsule 300 mg PO BID Qty: 20 0RF Referrals / Follow Up: Mario Reyes MD [Primary Care Provider] - Within 2 Weeks Disposition Disposition (needs filled in before D/C Order can be placed): Home, Self Care Charges/Coding Visit Charges Inpatient E&M: 46565 Disch Hosp >30min
[2023-01-02 16:22] VITALS: BP 107/70; PULSE 88; RESP 18; TEMP 36.7; O2SAT 100
[2023-01-02 16:30] LABS: Bedside Glucose 316 mg/dL (74-106)
== END 2023-01-02 19:21 | disposition home or self-care (01) | DRG 420 ==
LOC: ED 12:12 → ICU 12:40 → MS3 12-31 17:53
PROVIDERS: Internal Medicine; Admitting Provider Internal Medicine; Emergency Provider Emergency Medicine; PCP Internal Medicine; Visit Provider Student in an Organized Health Care Education/Training Program
DX: E11.10 Type 2 diabetes mellitus with ketoacidosis without coma (principal); E44.0 Moderate protein-calorie malnutrition; Z79.4 Long term (current) use of insulin; E87.6 Hypokalemia; Z68.22 Body mass index [BMI] 22.0-22.9, adult; Z91.199 Patient's noncompliance with other medical treatment and regimen due to unspecified reason; Z96.41 Presence of insulin pump (external) (internal); Z79.01 Long term (current) use of anticoagulants; Z86.711 Personal history of pulmonary embolism; Z86.718 Personal history of other venous thrombosis and embolism
CPT/HCPCS: 36415; 36569; 36600; 70450; 71045; 80048; 81001; 82009; 82803; 82962; 83605; 84132; 85025; 85610; 85730; 87040; 93005; 97116; 97162; 97166; 97530; 97535; 97802; 99285; J7030; J7050; A4216; C1751; J7799

== ENCOUNTER 2023-01-10 12:54 | Inpatient (IN) | payer MEDICAID, SELFPAY ==
[2023-01-10] VITALS (16 sets, daily range): BP systolic 94–144; BP diastolic 47–99; PULSE 106–130; RESP 19–35; TEMP 32.9–37.8; O2SAT 94–100; BMI 22.5; BMI 19.7
--- NOTE | 2023-01-10 13:15 | EKG12_ITS ---
Test Reason : DKA Blood Pressure : / mmHG Vent. Rate : 112 BPM Atrial Rate : 112 BPM P-R Int : 140 ms QRS Dur : 100 ms QT Int : 356 ms P-R-T Axes : 074 071 062 degrees QTc Int : 485 ms Sinus tachycardia Incomplete right bundle branch block Nonspecific T wave abnormality Abnormal ECG Confirmed by SHERMAN CASTILLO, KEVIN ([id number]), videotape editor AYESHA VALLE ([id number]) on 01/15/2023 9:32:33 AM Referred By: Confirmed By:SUSY WHITAKER MD
--- NOTE | 2023-01-10 13:32 | EX.ED.DYSGE1 ---
HPI History of Present Illness Chief Complaint: Hyperglycemia Informant: parent Narrative Narrative: Patient is a 22-year-old female with history of type 1 diabetes mellitus, recent admission for DKA, history of pleural effusion/pericardial effusion and chronically on Xarelto presenting for altered mental status. Patient seemed okay to the mother earlier today however she went and checked on him later and he was just breathing rapidly and not answering questions. She states is what he seems like when he is in DKA. Blood sugar prior to arrival was 391. Patient has had no other complaints. Mother believes he has been taking all his medications including his Xarelto but is not sure about his insulin. 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 Ulcer of leg, chronic Wound of left lower extremity Home Medications blood sugar diagnostic (OneTouch Verio test strips) #200 ea 09/08/21 [Rx Last Taken Unknown] pen needle, diabetic 32 gauge x 5/32 (BD Ultra-Fine Lorin Pen Needle) #360 ea 09/08/21 [Rx Last Taken Unknown] flash glucose sensor (FreeStyle Niru 14 Day Sensor kit) #2 ea 10/11/21 [Rx Last Taken Unknown] insulin lispro 100 unit/mL subcutaneous pen (Humalog KwikPen (U-100) Insulin) 17 unit subcut TIDAC DIABETES 07/24/22 [History Last Taken Unknown] insulin lispro 100 unit/mL subcutaneous pen (Humalog KwikPen (U-100) Insulin) See Protocol subcut ACHS DM 07/24/22 [History Last Taken Unknown] rivaroxaban 20 mg tablet (Xarelto) 20 mg PO DAILY BLOOD THINNER 09/17/22 [History Last Taken Unknown] acetaminophen 325 mg tablet (Tylenol) 325 mg PO Q6H PRN Pain 01/10/23 [History Last Taken 01/09/23] insulin glargine 100 unit/mL (3 mL) subcutaneous pen (Lantus Solostar U-100 Insulin) 30 unit subcut BID DIABETES 01/10/23 [History Last Taken Unknown] lactase 3,000 unit tablet (Lactaid) 3,000 unit PO TIDCM LACTOSE INTOLLERANCE 01/10/23 [History Last Taken Unknown] omeprazole 20 mg tablet,delayed release 20 mg PO DAILY PRN Acid Reflux 01/10/23 [History Last Taken 2 Days Ago ~01/08/23] potassium chloride 20 mEq tablet,extended release(part/cryst) (Klor-Con M) 20 meq PO BID SUPPLEMENT 01/10/23 [History Last Taken 01/09/23] Allergy/AdvReac Type Severity Reaction Status Date / Time Milk Containing Products AdvReac Diarrhea Verified 12/30/22 10:34 Family History Father Polysubstance overdose Patient father young secondary to OD. Mother Iron deficiency anemia Other Asthma CVA (cerebral vascular accident) Diabetes Hypertension Thyroid disorder Surgical History H/O right knee surgery History of surgery on extremity Hx of knee surgery Social History housing: other details: Lives with his grandmother, aunt and mother. Smoking Status: Never smoker alcohol intake: current alcohol intake frequency: a few times a month substance use type: does not use ROS ROS ED Review of Systems ROS Unobtainable: due to mental status EXAM Physical Exam Const Vital Signs: 01/10/23 12:54 Temperature 97.2 F L Temperature Source Temporal Pulse Rate 114 H Respiratory Rate 35 H Blood Pressure 144/98 H Blood Pressure Mean 113 Pulse Ox 94 Oxygen Delivery Method Room Air Positive cachectic Constitutional Narrative: Encephalopathic appearing General Appearance ED: cachectic Nutritional Appearance: cachectic HEENT Reports dry mucous membranes Mouth ED: Yes dry mucous membranes Mouth: dry mucous membranes Eyes PERRL and EOMs intact bilaterally Eyes Narrative: Pupils mid dilated (approximately 6 mm) Chest Wall inspection of chest normal Resp Resp Narrative: Kussamal respirations Cardio regular rhythm and no murmurs Rate: tachycardic GI normal to inspection, nondistended, normoactive bowel sounds and non-tender Neuro Neuro Narrative: Minimally responsive. Does not answer questions. No focal neurologic deficits. Slightly combative with IV. Skin no wounds Skin Narrative: Mild erythema of the bilateral feet which mother states is chronic MDM MDM MDM Narrative Medical decision making narrative: Patient is evaluated for altered mental status. On evaluation patient is quite tachypneic and encephalopathic. Does not appear to have any focal neurologic deficits. Given his history of DKA and insulin-dependent diabetes mellitus I suspect his altered mental status is from DKA. Differential also includes infection and substance abuse. After talking with the mother patient's mother states he does not use any drugs. Patient is found to be hyperglycemic with glucose of 661 and an anion gap of 31 as well as a bicarb of 2 and a sodium of 130. His calcium and phosphorus are mildly elevated. Urinalysis shows 150 ketones. Patient is given 2 L of IV fluid in the emergency room. There is a delay slightly because patient is difficult IV stick and has poor peripheral access. Ultimately nursing is able to get an IV in his foot. Patient is on Xarelto and is not hypoxic. Mother states has been compliant with his Xarelto. Low suspicion for pulmonary emboli at this time. ABG shows a significant metabolic acidosis and patient has a pH of 6.6. Will also give IV bicarb and ordered an insulin drip to start. Case is discussed with hospitalist. As she is concerned about the patient's pupils with his altered mental status so CT of the brain will be ordered to rule out an acute intracranial process. This is negative for any hemorrhage or other acute process. Patient is admitted to the ICU. History & Record Review Discussion w/independent historian: Other (Mother- see HPI info) Additional record(s) reviewed:: Prior inpatient record (Discharge summary from 01/02/2023-patient was admitted for DKA, is noncompliant with medications at home.) Lab Data Attestation: I reviewed the patient's lab results. Labs: Laboratory Results - last 24 hr 01/10/23 01/10/23 01/10/23 13:21 13:21 14:30 Sodium 130 L Potassium 4.8 Chloride 97 L Carbon Dioxide 2.0 L* Anion Gap 31 H BUN 14 Creatinine 1.43 H Estim Creat Clear Calc 91.23 Est GFR (MDRD) Af Amer 80 Est GFR (MDRD) Non-Af 66 BUN/Creatinine Ratio 9.8 L Glucose 661 H* Calcium 11.3 H Phosphorus 6.1 H Magnesium 2.2 Urine Color Yellow Urine Clarity Sl. Cloudy Urine pH 5.0 Ur Specific [place] 1.020 Urine Protein 100 H Urine Glucose (UA) 1000 H Urine Ketones 150 A* Urine Occult Blood 10 H Urine Nitrite Negative Urine Bilirubin Negative Urine Urobilinogen Normal Ur Leukocyte Esterase 25 H Urine RBC 0-5 SEEN Urine WBC 0-5 SEEN Ur Squamous Epith Cells 0 SEEN Urine Bacteria 0 SEEN Urine Mucus 0 SEEN Urine Yeast 3+ Acetone Level MODERATE H POC Glucose 01/10/23 14:37 Sodium Potassium Chloride Carbon Dioxide Anion Gap BUN Creatinine Estim Creat Clear Calc Est GFR (MDRD) Af Amer Est GFR (MDRD) Non-Af BUN/Creatinine Ratio Glucose Calcium Phosphorus Magnesium Urine Color Urine Clarity Urine pH Ur Specific [place] Urine Protein Urine Glucose (UA) Urine Ketones Urine Occult Blood Urine Nitrite Urine Bilirubin Urine Urobilinogen Ur Leukocyte Esterase Urine RBC Urine WBC Ur Squamous Epith Cells Urine Bacteria Urine Mucus Urine Yeast Acetone Level POC Glucose > 500 H* Radiography Chest X-Ray - ED: 1 View, Read by ED Physician, Read by Radiologist and No Acute Disease Diagnostic Testing: Clinical Impression(s) from Imaging Studies Chest X-Ray 01/10/23 13:46 IMPRESSION: Normal x-ray examination of the chest. Electronically Signed: Willy Callahan MD at 13:59 EST , Rhythm Strip Rhythm Strip: Sinus Tach Rate: 112 Ectopy: None EKG Initial EKG: Attestation: I personally reviewed and interpreted this EKG as follows: Interpretation: Sinus Tachycardia Comments: Sinus tachycardia at a rate of 112 bpm Normal axis Normal intervals Incomplete right bundle branch block Normal ST segments Management Discussion w/another healthcare provider: Hospitalist Critical Care Time Critical Care Time: Yes Critical care time (excluding procedures): 30-74 minutes (37), Discussing w/Patient &/or Family/[employer]ed [employer] and Arranging Admission or Transfer Discharge Plan Triage Chief Complaint: Hyperglycemia ED Provider: Virginia Nguyễn Dx/Rx/DC Orders Clinical Impression: DKA (diabetic ketoacidoses), Toxic metabolic encephalopathy, RADHA (acute kidney injury) Primary Care Provider: Mario Ryees Disposition Disposition: Acute Care [facility]
[2023-01-10] MEDS: 0.9% Normal Saline 1,000 ML 999 ML IV ×3 (13:45→17:14)
--- NOTE | 2023-01-10 13:46 | RAD_ITS ---
STUDY: X-RAY CHEST REASON FOR EXAM: Male, 22 years old. AMS TECHNIQUE: Single AP portable view of the chest. COMPARISON: Comparison is made with prior study dated 12/30/2022. FINDINGS: EKG electrodes are seen. The lungs are clear and expanded. There is no demonstrated pleural abnormality. Normal size heart. Normal mediastinum and rudi. Normal visualized pulmonary arteries. Normal visualized aortic arch and descending thoracic aorta. Normal visualized thoracic spine. Normal visualized ribs, clavicles, and shoulders. There is no demonstrated abnormality of the visualized soft tissue structures of the upper abdomen. RAD/Chest 1 View (Portable) IMPRESSION: Normal x-ray examination of the chest. Electronically Signed: Willy Callahan MD at 13:59 EST ,
[2023-01-10 13:54] LABS: Anion Gap 31 (5-15); BUN 14 mg/dL (7-18); BUN/Creat Ratio 9.8 RATIO (10-20); Calcium,Total 11.3 mg/dL (8.5-10.1); Chloride 97 mmol/L (98-107); Creatinine, Serum 1.43 mg/dL (0.70-1.30); EST Glomerular Filtration Rate 66 mL/min (>60); Est Glom Filt Rate - Afr Amer 80 mL/min (>60); Estimated Creatinine Clearance 91.23 ml/min; Glucose 661 mg/dL (74-106); Magnesium 2.2 mg/dL (1.6-2.6); Phosphorus 6.1 mg/dL (2.5-4.9); Potassium 4.8 mmol/L (3.5-5.1); Sodium Level 130 mmol/L (136-145)
--- NOTE | 2023-01-10 14:16 | PCM.HP.STD ---
HPI - General General Date of Admission: 01/10/23 Date of Service: 01/10/23 Chief Complaint: Hyperglycemia HPI Narrative SHIRA STEPHENSON, is a 22 M who presented to the emergency department at [facility] on 01/10/2023 with hyperglycemia. Patient has had multiple previous admissions for DKA at this facility due to noncompliance. He had 2 admissions in December alone for DKA. Apparently the patient was in his normal state of health last evening and early this morning however his aunt came back and found him obtunded and breathing rapidly. Blood sugar prior to arrival and fingerstick was 391. Mother believes he is taking all of his medications including his Xarelto but is unsure about his insulin. Patient is not able to participate with any history at this time given his mental status related to his severe metabolic acidosis and DKA. Vital signs on presentation demonstrated a temperature of 97.2, heart rate 114, blood pressure 144/98, respiratory rate 35, pulse ox is 94% on room air. CBC is still pending. Chemistry panel shows a sodium of 130, chloride 97, bicarb of 2, anion gap of 31, serum creatinine of 1.43, blood glucose of 661, calcium of 11.3 and a phosphorus of 6.1. His UA is markedly concentrated with specific gravity of 1.02. He has large amounts of ketones and glucose in his urine. There are no signs of infection. Acetone level is moderate. Chest x-ray is unremarkable. VBG shows a pH of 6.65 per conversation with ER physician, however the result is not yet in the chart. EKG shows sinus tachycardia without any ST-T wave changes. Patient was treated with IV fluids, IV bicarbonate, and insulin drip starting the emergency department and request for admission in the ICU was made. [facility] Medical History Asthma Diabetes mellitus type 1 femur surgery GERD (gastroesophageal reflux disease) Hypokalemia Kidney disease Lower extremity edema Nausea and vomiting Non-smoker Noncompliance Nonhealing surgical wound Psychosocial problem Severe protein-calorie malnutrition Sinus tachycardia seen on monitoring manager Ulcer of leg, chronic Wound of left lower extremity Home Medications blood sugar diagnostic (OneTouch Verio test strips) #200 ea 09/08/21 [Rx Last Taken Unknown] pen needle, diabetic 32 gauge x (BD Ultra-Fine Lorin Pen Needle) #360 ea 09/08/21 [Rx Last Taken Unknown] flash glucose sensor (FreeStyle Niru 14 Day Sensor kit) #2 ea 10/11/21 [Rx Last Taken Unknown] insulin lispro 100 unit/mL subcutaneous pen (Humalog KwikPen (U-100) Insulin) 17 unit subcut TIDAC DIABETES 07/24/22 [History Last Taken Unknown] insulin lispro 100 unit/mL subcutaneous pen (Humalog KwikPen (U-100) Insulin) See Protocol subcut ACHS DM 07/24/22 [History Last Taken Unknown] rivaroxaban 20 mg tablet (Xarelto) 20 mg PO DAILY BLOOD THINNER 09/17/22 [History Last Taken Unknown] acetaminophen 325 mg tablet (Tylenol) 325 mg PO Q6H PRN Pain 01/10/23 [History Last Taken 01/09/23] insulin glargine 100 unit/mL (3 mL) subcutaneous pen (Lantus Solostar U-100 Insulin) 30 unit subcut BID DIABETES 01/10/23 [History Last Taken Unknown] lactase 3,000 unit tablet (Lactaid) 3,000 unit PO TIDCM LACTOSE INTOLLERANCE 01/10/23 [History Last Taken Unknown] omeprazole 20 mg tablet,delayed release 20 mg PO DAILY PRN Acid Reflux 01/10/23 [History Last Taken 2 Days Ago ~01/08/23] potassium chloride 20 mEq tablet,extended release(part/cryst) (Klor-Con M) 20 meq PO BID SUPPLEMENT 01/10/23 [History Last Taken 01/09/23] Allergy/AdvReac Type Severity Reaction Status Date / Time Milk Containing Products AdvReac Diarrhea Verified 12/30/22 10:34 Family History Father Polysubstance overdose Patient father young secondary to OD. Mother Iron deficiency anemia Other Asthma CVA (cerebral vascular accident) Diabetes Hypertension Thyroid disorder Surgical History H/O right knee surgery History of surgery on extremity Hx of knee surgery Social History housing: other details: Lives with his grandmother, aunt and mother. Smoking Status: Never smoker alcohol intake: current alcohol intake frequency: a few times a month substance use type: does not use ROS Review of Systems ROS Unobtainable: due to encephalopathy Vital Signs Vital Signs Vital Signs: 01/10/23 12:54 Temperature 97.2 F L Temperature Source Temporal Pulse Rate 114 H Respiratory Rate 35 H Blood Pressure 144/98 H Blood Pressure Mean 113 Pulse Ox 94 Oxygen Delivery Method Room Air Weight Weight: 79.6 kg Body Mass Index (BMI) 22.5 Physical Exam Const Constitutional Narrative: Disheveled, thin, young white male, lying in bed, patient appears ill, family member at bedside patient has his eyes open but is obtunded and not interactive, does move all limbs spontaneously but not to command. General Appearance: cooperative HEENT normocephalic and head/scalp atraumatic HEENT Narrative: Dentition is fair for age, Mallampati is 1-2, no thrush Eyes Eyes Narrative: Pupils are dilated and sluggish to light, conjunctiva are normal bilaterally, no scleral icterus Neck no lymphadenopathy, supple, no JVD and no carotid bruits Neck Narrative: Trachea midline, no thyroid enlargement Resp no retractions, no use of accessory muscles and clear to auscultation bilaterally Resp Narrative: Markedly tachypneic Auscultation: Negative for rales, rhonchi or wheezes Cardio regular rhythm, S1 normal heart sound, S2 normal heart sound, no murmurs, no rub, no gallops and no clicks Cardio Narrative: Mildly tachycardic GI normal to inspection, nondistended, normoactive bowel sounds, soft to palpation, non-tender and non-distended Extremity no clubbing, cyanosis or edema Extremity Narrative: 2+ pedal pulses Skin Skin Narrative: Rash on bilateral feet appears to be yeast in nature, feet are somewhat erythematous but eda easily, onychomycosis bilaterally Neuro Neuro Narrative: Moves all limbs spontaneously but does not move to command, reflexes are normal, eyes are open but patient is not appropriately interacting Speech: Negative for speech normal Motor Exam: Negative for strength 5/5 throughout Psych Psych Narrative: Unable to assess secondary to mental status Results Lab / Micro Data Attestation: I reviewed the patient's lab results. Result Diagrams: 01/10/23 13:21 01/10/23 13:21 Labs: Laboratory Results - last 24 hr 01/10/23 13:21: Sodium 130 L, Potassium 4.8, Chloride 97 L, Carbon Dioxide 2.0 L*, Anion Gap 31 H, BUN 14, Creatinine 1.43 H, Estim Creat Clear Calc 91.23, Est GFR (MDRD) Af Amer 80, Est GFR (MDRD) Non-Af 66, BUN/Creatinine Ratio 9.8 L, Glucose 661 H*, Calcium 11.3 H, Phosphorus 6.1 H, Magnesium 2.2 01/10/23 13:21: Acetone Level MODERATE H Radiology Impression Chest X-Ray 01/10/23 13:46 IMPRESSION: Normal x-ray examination of the chest. Electronically Signed: Willy Callahan MD at 13:59 EST , Assessment & Plan Assessment/Plan (1) DKA (diabetic ketoacidoses): (2) History of medication noncompliance: (3) RADHA (acute kidney injury): (4) Metabolic acidosis: (5) Toxic metabolic encephalopathy: PLAN: Plan Diabetic ketoacidosis -Secondary to medication noncompliance--> patient has multiple frequent admissions related to hyperglycemia and DKA -Aggressive hydration -DKA protocol with IV fluids, insulin drip -Serial labs with BMP/mag/phosphorus -N.p.o. until out of DKA DM-1 uncontrolled -Patient noncompliant does not follow regularly with anyone for his diabetes -A1c was obtained on 12/19/2022 and was 12.6 -Discussed the deleterious effects of long-term uncontrolled blood sugars -Patient with frequent DKA admissions -We will order PICC line for fluid administration and insulin as patient currently only has a peripheral in his foot -Per family the last time internal jugular central venous catheter was tried they were unable to cannulate the vein Anion gap metabolic acidosis -Secondary to DKA -Should improve as DKA resolves Metabolic encephalopathy -Likely related to the severe DKA-->however patient is on Xarelto -CT of his head is pending Acute kidney injury secondary to dehydration -Baseline serum creatinine is 0.8-1 -Creatinine on admission 1.43 -IV fluids as ordered above -Recheck with serial lab History of pericarditis/pericardial infection -At the end of last year he was admitted to [facility] and found to have MSSA in his pericardial fluid. He was placed on long-term antibiotics -Remains on colchicine History of PE/DVT -On Xarelto at home -Continue home Xarelto DVT prophylaxis -Lovenox -SCDs CODE STATUS -full code Critical care time greater than 35 minutes excluding procedures Charges/Coding Procedures Hospitalists Procedures: [id number] [facility] 1st Hr
[2023-01-10 14:32] LABS: Bacteria 0 SEEN /hpf (None Seen); Mucous, Urine 0 SEEN /hpf (<or=2+); Squamous Epithelial Cells - UA 0 SEEN /hpf (0-5)
[2023-01-10 14:34] LABS: Color, Urine Yellow (Yellow); Glucose, Dipstick 1000 mg/dl (Normal); Leukocyte Esterase-Dipstick 25 /ul (Negative); Nitrite-Dipstick Negative (Negative); Occult Blood-Urine 10 /ul (Negative); Protein-Dipstick 100 mg/dl (Negative); Urine Bilirubin Dipstick Negative (Negative); Urine Clarity Sl. Cloudy (Clear); Urine Urobilinogen Normal (Normal)
[2023-01-10 14:35] LABS: Ketone-Dipstick 150 mg/dl (Negative)
--- NOTE | 2023-01-10 14:37 | NURSING ---
ICU ANTONINA PIZANOA
[2023-01-10 14:41] LABS: Red Blood Cells-Urine 0-5 SEEN /hpf (0-5); White Blood Cells 0-5 SEEN /hpf (0-5); Yeast-Urine 3+ /hpf (None Seen)
[2023-01-10] MEDS: Sodium Bicarbonate 50 MEQ/50 ML Vial IV ×2 (14:58→15:00)
--- NOTE | 2023-01-10 14:58 | NURSING ---
ICU 2
--- NOTE | 2023-01-10 15:00 | CT_ITS ---
STUDY: CT BRAIN WITHOUT CONTRAST REASON FOR EXAM: Male, 22 years old. AMS RADIATION DOSAGE (If Supplied By Facility): CTDIvol = ( 47.06 ) mGy, DLP = ( 890.33 ) mGycm TECHNIQUE: Transaxial CT imaging of the brain was performed without administration of intravenous contrast material. Individualized dose optimization techniques were used for this CT. COMPARISON: Comparison is made with prior study dated 12/30/2022. FINDINGS: Normal soft tissue structures. Normal calvarium. Normal size ventricles and extra-axial spaces for the patient''s age. Normal white matter tracts of the cerebral hemispheres. Normal basal ganglia and thalami. Normal brainstem. Normal cerebellum. There is no intracranial hemorrhage. There are no findings of an acute ischemic infarction. Normal visualized paranasal sinuses. CT/Brain/Head without Contrast IMPRESSION: Normal unenhanced CT scan of the brain. Electronically Signed: Willy Callahan MD at 15:29 EST ,
[2023-01-10 16:06] LABS: Bedside Glucose > 500 mg/dL (74-106)
[2023-01-10 16:06] LABS: Bedside Glucose > 500 mg/dL (74-106)
[2023-01-10 16:16] LABS: Absolute Lymphocyte Count 5.69 X10^3/uL (0.83-4.51); Absolute Neutrophil Count 17.4 X10^3/uL (2.0-7.7); Basophil# 0.25 X10^3/uL; Eosinophil# 0.06 X10^3/uL; Eosinophils% 0.2 % (0-5); Hematocrit 43.8 % (40-54); Hemoglobin 13.1 g/dL (13.0-16.5); Lymphocyte # 5.69 X10^3/ul (0.83-4.51); Lymphocyte % 22.1 % (19-41); Mean Corp Hgb Conc 29.9 g/dL (32-36); Mean Corpuscular Hgb 26.2 pg (27.0-32.0); Mean Corpuscular Volume 87.6 fL (80-94); Mean Platelet Vol. 9.8 fl (6.2-12.0); Monocyte# 1.65 X10^3/uL; Monocyte% 6.4 % (0-10); NRBC Flagged by Analyzer 0 % (0-5); Neutrophil # 17.38 X10^3/uL (2.7-7.7); Neutrophil % 67.5 % (47-70); POSITIVE DIFFERENTIAL YES; POSITIVE MORPHOLOGY YES; Platelet Count 644 K/mm3 (150-450); RBC Distribution Width CV 14.8 % (11.6-14.6); RBC Distribution Width SD 47.3 fl (35.1-43.9); White Blood Count 25.7 K/mm3 (4.4-11.0)
[2023-01-10 16:30] LABS: Differential Indicated SCAN CRITERIA MET
[2023-01-10 17:23] LABS: Differential Comment SCANNED
[2023-01-10 17:30] LABS: Bedside Glucose 472 mg/dL (74-106)
[2023-01-10 17:48] LABS: Anion Gap 24 (5-15); BUN 14 mg/dL (7-18); BUN/Creat Ratio 13.3 RATIO (10-20); Chloride 110 mmol/L (98-107); Creatinine, Serum 1.05 mg/dL (0.70-1.30); EST Glomerular Filtration Rate 94 mL/min (>60); Est Glom Filt Rate - Afr Amer 114 mL/min (>60); Estimated Creatinine Clearance 108.79 ml/min; Glucose 590 mg/dL (74-106); Magnesium 1.6 mg/dL (1.6-2.6); Potassium 4.1 mmol/L (3.5-5.1); Sodium Level 139 mmol/L (136-145)
[2023-01-10] MEDS: 0.9% Normal Saline 1,000 ML 500 ML IV (18:04)
[2023-01-10 18:26] LABS: Bedside Glucose 353 mg/dL (74-106)
[2023-01-10 18:27] LABS: Blood Gas Specimen Type VEN
[2023-01-10 18:28] LABS: Time Given 1339; VBG PO2 62 mmHg (25-40); VBG pCO2 19.8 mmHg (41-51); VBG pH 6.66 (7.32-7.42)
[2023-01-10 18:29] LABS: VBG BASE EXCESS < -30 mmol/L (-1.0-3.5); VBG Bicarbonate 2 mmol/L (22-26); VBG SO2 56 % (50-70); VBG TCO2 < 5 mmol/L (23-33)
[2023-01-10 19:26] LABS: Phosphorus 4.9 mg/dL (2.5-4.9)
[2023-01-10 19:41] LABS: Bedside Glucose 341 mg/dL (74-106)
[2023-01-10] MEDS: Vancomycin IV 1,000 MG/200 ML BAG 200 MG IV (19:42)
[2023-01-10] MEDS: 0.9% Normal Saline 1,000 ML 125 ML IV (20:14)
[2023-01-10 20:29] LABS: Anion Gap 23 (5-15); BUN 15 mg/dL (7-18); BUN/Creat Ratio 15.5 RATIO (10-20); Calcium,Total 10.3 mg/dL (8.5-10.1); Chloride 117 mmol/L (98-107); Creatinine, Serum 0.96 mg/dL (0.70-1.30); EST Glomerular Filtration Rate 103 mL/min (>60); Est Glom Filt Rate - Afr Amer 125 mL/min (>60); Estimated Creatinine Clearance 118.99 ml/min; Glucose 331 mg/dL (74-106); Magnesium 1.5 mg/dL (1.6-2.6); Sodium Level 144 mmol/L (136-145)
[2023-01-10] MEDS: Dext 5%-0.45% NS 1,000 ML 150 ML IV (20:30)
--- NOTE | 2023-01-10 20:39 | PCM.RX.CS ---
Consult Pharmacy has been consulted to manage selected antiobiotic: Vancomycin Type of Consult: New start Suspected Infection: Other Labs: Sodium 144 mmol/L (136-145) 01/10/23 19:37 Potassium 4.0 mmol/L (3.5-5.1) 01/10/23 19:37 Chloride 117 mmol/L (98-107) H 01/10/23 19:37 Carbon Dioxide 4.0 mmol/L (21.0-32.0) L* 01/10/23 19:37 Anion Gap 23 (5-15) H 01/10/23 19:37 BUN 15 mg/dL (7-18) 01/10/23 19:37 Creatinine 0.96 mg/dL (0.70-1.30) 01/10/23 19:37 Est GFR (MDRD) Af Amer 125 mL/min (>60) 01/10/23 19:37 Est GFR (MDRD) Non-Af 103 mL/min (>60) 01/10/23 19:37 BUN/Creatinine Ratio 15.5 RATIO (10-20) 01/10/23 19:37 Glucose 331 mg/dL (74-106) H 01/10/23 19:37 Goal Trough: 15-20 mcg/mL Pharmacy Plan for Drug Dosing: NEW START IV VANCOMYCIN Consulting Physician: Dr. Jose Alvarez Indication: R/O infection Goal Trough: 15-20 SrCr:0.96 CrCl: > 100mL/min Comments: 1000mg IV x1 initial dose ordered and administered 01/10/23 @1942 Vancomycin Dose: 1000mg IV Q8h to start 01/11/23 @0400 Pending Level: 01/11/23 @1930, prior to 4th total dose per protocol Pharmacy Service will continue to monitor and adjust dosing as required.
--- NOTE | 2023-01-10 22:33 | PCM.PN.BLA ---
Progress Note Notified of sepsis alert. Of note the patient has had a SIRS criteria since presentation. No organ dysfunction at this time. Check lactic acid. Also notified of gross hematuria. Check CPK. Chest x-ray and urinalysis unremarkable.
[2023-01-10 22:51] LABS: Hemoglobin 10.8 g/dL (13.0-16.5)
[2023-01-10] MEDS: 0.9% Saline Lock 10 ML Syringe IV ×2 (23:07→23:59)
[2023-01-10 23:21] LABS: Bedside Glucose 258 mg/dL (74-106)
[2023-01-10 23:21] LABS: Bedside Glucose 241 mg/dL (74-106)
[2023-01-10 23:21] LABS: Bedside Glucose 271 mg/dL (74-106)
[2023-01-10 23:26] LABS: CPK Total, Creatine Kinase 87 U/L (39-308); Lactic Acid 0.3 mmol/L (0.4-1.9)
[2023-01-10 23:31] LABS: M R Staph aureus DNA By PCR Negative (Negative); Probe Check PASS; Specimen Processing Control PASS
[2023-01-11] VITALS (21 sets, daily range): BP systolic 100–128; BP diastolic 53–97; PULSE 106–128; RESP 12–20; TEMP 36.6–37.7; O2SAT 100; BMI 19.8
[2023-01-11 00:24] LABS: Anion Gap 16 (5-15); BUN 12 mg/dL (7-18); BUN/Creat Ratio 12.8 RATIO (10-20); Calcium,Total 10.3 mg/dL (8.5-10.1); Chloride 120 mmol/L (98-107); Creatinine, Serum 0.94 mg/dL (0.70-1.30); EST Glomerular Filtration Rate 107 mL/min (>60); Est Glom Filt Rate - Afr Amer 129 mL/min (>60); Estimated Creatinine Clearance 121.52 ml/min; Glucose 218 mg/dL (74-106); Magnesium 1.5 mg/dL (1.6-2.6); Potassium 3.4 mmol/L (3.5-5.1); Sodium Level 145 mmol/L (136-145)
[2023-01-11] MEDS: 0.9% Saline Lock 10 ML Syringe IV ×8 (01:02→22:38)
[2023-01-11] MEDS: Sodium Bicarbonate 50 MEQ/50 ML Vial IV (01:04)
[2023-01-11] MEDS: Potassium Chloride 40 MEQ in Dext 5%-0.45% NS 1,000 ML 150 MEQ IV (01:11)
[2023-01-11 01:41] LABS: Base Excess -28 mmol/L (-2 to +2); Bicarbonate 2.5 mmol/L (22-26); Blood Gas Specimen Type ART; FI02 21; O2 Delivery Device Room Air; PO2 163 mmHG (75-100); SITE L Radial; SO2 99 % (95-99); Total Carbon Dioxide < 5 mmol/L; pH 7.05 (7.35-7.45)
[2023-01-11 02:26] LABS: Bedside Glucose 223 mg/dL (74-106)
[2023-01-11 02:26] LABS: Bedside Glucose 205 mg/dL (74-106)
[2023-01-11 02:26] LABS: Bedside Glucose 171 mg/dL (74-106)
[2023-01-11] MEDS: Vancomycin IV 1,000 MG/200 ML BAG 200 MG IV ×2 (04:03→12:04)
[2023-01-11 04:07] LABS: Absolute Lymphocyte Count 0.59 X10^3/uL (0.83-4.51); Absolute Neutrophil Count 10.4 X10^3/uL (2.0-7.7); Basophil# 0.02 X10^3/uL; Basophil% 0.2 % (0-1); Hematocrit 31.8 % (40-54); Hemoglobin 10.7 g/dL (13.0-16.5); Lymphocyte # 0.59 X10^3/ul (0.83-4.51); Mean Corp Hgb Conc 33.6 g/dL (32-36); Mean Corpuscular Hgb 25.8 pg (27.0-32.0); Mean Corpuscular Volume 76.8 fL (80-94); Mean Platelet Vol. 8.6 fl (6.2-12.0); Monocyte# 0.77 X10^3/uL; Monocyte% 6.5 % (0-10); NRBC Flagged by Analyzer 0 % (0-5); Neutrophil # 10.42 X10^3/uL (2.7-7.7); Neutrophil % 87.5 % (47-70); POSITIVE DIFFERENTIAL YES; Platelet Count 358 K/mm3 (150-450); RBC Distribution Width CV 15.2 % (11.6-14.6); RBC Distribution Width SD 41.1 fl (35.1-43.9); Red Blood Count 4.14 M/mm3 (4.6-6.2); White Blood Count 11.9 K/mm3 (4.4-11.0)
[2023-01-11 04:11] LABS: Differential Indicated SCAN CRITERIA MET
[2023-01-11 04:21] LABS: Differential Comment SCANNED
[2023-01-11 04:24] LABS: ALB/GLOB Ratio 0.9 RATIO (0.9-2.4); AST(SGOT) 11 U/L (15-37); Alanine Aminotransfer ALT/SGPT 18 U/L (16-61); Albumin, Serum 3.1 g/dL (3.2-5.0); Alkaline Phosphatase 145 U/L (45-117); Anion Gap 10 (5-15); BUN 12 mg/dL (7-18); BUN/Creat Ratio 12.2 RATIO (10-20); Calcium,Total 9.9 mg/dL (8.5-10.1); Chloride 121 mmol/L (98-107); Creatinine, Serum 0.98 mg/dL (0.70-1.30); EST Glomerular Filtration Rate 102 mL/min (>60); Est Glom Filt Rate - Afr Amer 123 mL/min (>60); Estimated Creatinine Clearance 116.56 ml/min; Globulin 3.4 g/dL (2.2-4.2); Glucose 173 mg/dL (74-106); Magnesium 1.3 mg/dL (1.6-2.6); Potassium 3.4 mmol/L (3.5-5.1); Protein, Total 6.5 g/dL (6.4-8.2); Sodium Level 147 mmol/L (136-145)
[2023-01-11 05:20] LABS: Bedside Glucose 162 mg/dL (74-106)
[2023-01-11 05:20] LABS: Bedside Glucose 166 mg/dL (74-106)
[2023-01-11 05:20] LABS: Bedside Glucose 165 mg/dL (74-106)
[2023-01-11] MEDS: Insulin Glargine-YFGN 100 UNIT/ML Pen 10 UNIT SC (05:35)
[2023-01-11 08:00] LABS: Bedside Glucose 291 mg/dL (74-106)
[2023-01-11] MEDS: Insulin Glargine-YFGN 100 UNIT/ML Pen 30 UNIT SC ×2 (08:00→22:38)
[2023-01-11] MEDS: Insulin Lispro 100 UNIT/ML INSULN.PEN 17 UNIT SC ×3 (08:01→17:56)
[2023-01-11] MEDS: Insulin Lispro 100 UNIT/ML INSULN.PEN SC ×3 (11:50→22:38)
[2023-01-11 12:25] LABS: Bedside Glucose 242 mg/dL (74-106)
[2023-01-11 12:51] LABS: Pathologist Review Reviewed
[2023-01-11] MEDS: Ondansetron 4 MG/2 ML Vial IV (13:59)
--- NOTE | 2023-01-11 14:18 | CASEMGMT ---
VERONA FONTANEZ Readmission Review: Index: 12/19 thru 12/20 and 12/30 thru 01/02 both for Dx of DKA Readmission: 01/10 for Dx of DKA Pt with type I DM with multiple readmissions for DKA in addition to MSSA pericarditis. Pt lives in a two story home with multigenerational family members including his grandmother which whom he lives in the basement with, his mother, aunt, brother, and cousin. Pt has had limited access to transportation, intermittent monitoring of his glucose levels, and noncompliance with insulin administration. Pt has followed-up with Dr. Reyes after his previous visits with the most recent follow-up on 12/22 and is scheduled for an official establishment of care with Dr. Reyes on 03/23/23 at 1100. Pt is also scheduled to establish care with endocrinology CHERRY SORTER, Mandi at [facility] on 02/21/23 at 1330. During pt's last visit he states a family friend is scheduled to transport him to both of these appointments. Pt has also used [facility] thru his [employer] insurance for transportation to previous appointments. Contact information for [facility] has been provided to the pt and his grandmother on previous visits. Pt has reported to have all needed insulin and administration and monitoring supplies and was ensured to have a new script for and had applied his Niru sensor prior to discharge on 01/02. Pt has declined home health services Will continue to monitor for additional care coordination needs. Eden Myers RN CM
[2023-01-11 15:01] LABS: Phosphorus 1.6 mg/dL (2.5-4.9)
[2023-01-11 16:37] LABS: Anion Gap 8 (5-15); BUN 10 mg/dL (7-18); BUN/Creat Ratio 9.4 RATIO (10-20); Calcium,Total 9.7 mg/dL (8.5-10.1); Chloride 110 mmol/L (98-107); Creatinine, Serum 1.06 mg/dL (0.70-1.30); EST Glomerular Filtration Rate 93 mL/min (>60); Est Glom Filt Rate - Afr Amer 112 mL/min (>60); Estimated Creatinine Clearance 108.69 ml/min; Glucose 245 mg/dL (74-106); Potassium 2.9 mmol/L (3.5-5.1); Sodium Level 138 mmol/L (136-145)
[2023-01-11 17:15] LABS: Bedside Glucose 232 mg/dL (74-106)
[2023-01-11] MEDS: Rivaroxaban 20 MG Tablet PO (17:55)
--- NOTE | 2023-01-11 18:50 | PN.HOSP_ITS ---
Reason for Visit Reason for Visit: Diagnoses Type 2 diabetes mellitus with ketoacidosis without coma (01/10/23) Acidosis, unspecified (01/10/23) Other toxic encephalopathy (01/10/23) Acute kidney failure, unspecified (01/10/23) Patient's other noncompliance with medication regimen (01/10/23) Subjective Subjective She was seen and examined today, patient was taken off his insulin drip today and has been on his home insulin dosage along with a diabetic diet. Patient's blood culture was drawn on 01/10/2023 and grew out a Streptococcus species today, his other blood culture drawn on the same date is still pending and presume negative. Patient's white blood cell count dropped down today to 11.9, he has a low-grade temperature today. I talked with infectious diseases and they will see him in consultation tomorrow, for now I will leave the patient on IV vancomycin and Zosyn until the cultures are finalized. Patient appeared stable to move to PCU. Objective Data Objective Data Vital Signs: Vital Signs Temp Pulse Resp BP Pulse Ox O2 Del Method 97.8 F 110 H 18 117/89 H 100 Room Air 01/11/23 16:25 01/11/23 16:25 01/11/23 16:25 01/11/23 16:25 01/11/23 16:25 01/11/23 16:25 Oxygen Delivery Method Room Air Weight: 70.3 kg Body Mass Index (BMI) 19.8 Intake & Output: Intake and Output for Last 24 Hours 01/09/23 01/10/23 01/11/23 23:59 23:59 23:59 Intake Total 4229.80 / 4229.80 3486.05 / 3486.05 Output Total 2450 / 2950 1950 / 1950 Balance 1779.80 / 1279.80 1536.05 / 1536.05 Medical Nutrition Assessment Dietitian: Malnutrition Criteria Met Start: 01/11/23 08:59 Freq: Status: Active Protocol: Document 01/11/23 08:59 RMA (Rec: 01/11/23 08:59 RMA [id number]) Nutrition Malnutrition Evidence of Malnutrition Exists Yes Malnutrition (severe): Chronic,Social/Behavioral/ Environmental Evidenced By Suboptimal Energy Intake ( Moderate),Weight Loss (Severe) Clinical Problem Altered Nutrient-Related Laboratory Values Etiology related to dietary noncompliance and excessive carbohydrate intake Signs/Symptoms as evidenced by HgbA1C 12.6% and blood glucose on admission 661 Status Active Problem Chronic Disease or Condition Related Malnutrition Etiology Severe pro-luigi malnutrition in the context of chronic disease and noncompliance as evidenced by inadequate oral intake and suspected excessive carbohydrate diet Signs/Symptoms as evidenced by 6% wt loss x 1 month and PO meeting less than 75% estimated nutrition needs x 2-3 months reported Status Active Problem Recommendation Dietitian Recommendations/Changes Will change diet to 2000 calorie/consistent carbohydrate. Will add 120 ml glucerna shake TID w/ medpass. Diet instruction as pt willing to co-operate. Lab / Micro Data Result Diagrams: 01/11/23 04:00 01/11/23 16:05 Labs: Laboratory Results - last 24 hr 01/10/23 13:21: Diff Path Review Reviewed 01/10/23 17:10: Phosphorus 4.9 01/10/23 19:02: POC Glucose 341 H 01/10/23 19:20: MRSA (PCR) Negative 01/10/23 19:37: Sodium 144, Potassium 4.0, Chloride 117 H, Carbon Dioxide 4.0 L* , Anion Gap 23 H, BUN 15, Creatinine 0.96, Estim Creat Clear Calc 118.99, Est GFR (MDRD) Af Amer 125, Est GFR (MDRD) Non-Af 103, BUN/Creatinine Ratio 15.5, Glucose 331 H, Calcium 10.3 H, Magnesium 1.5 L 01/10/23 20:00: POC Glucose 271 H 01/10/23 21:02: POC Glucose 241 H 01/10/23 22:00: POC Glucose 258 H 01/10/23 22:42: Hgb 10.8 L, Hct 32.0 L 01/10/23 22:42: Total Creatine Kinase 87 01/10/23 22:42: Lactic Acid 0.3 L 01/10/23 23:05: POC Glucose 223 H 01/10/23 23:55: Sodium 145, Potassium 3.4 L, Chloride 120 H, Carbon Dioxide 9.0 L*, Anion Gap 16 H, BUN 12, Creatinine 0.94, Estim Creat Clear Calc 121.52, Est GFR (MDRD) Af Amer 129, Est GFR (MDRD) Non-Af 107, BUN/Creatinine Ratio 12.8, Glucose 218 H, Calcium 10.3 H, Magnesium 1.5 L 01/10/23 23:58: POC Glucose 205 H 01/11/23 01:02: POC Glucose 171 H 01/11/23 02:09: POC Glucose 165 H 01/11/23 03:04: POC Glucose 162 H 01/11/23 03:59: POC Glucose 166 H 01/11/23 04:00: Sodium 147 H, Potassium 3.4 L, Chloride 121 H, Carbon Dioxide 16.0 L, Anion Gap 10, BUN 12, Creatinine 0.98, Estim Creat Clear Calc 116.56, Est GFR (MDRD) Af Amer 123, Est GFR (MDRD) Non-Af 102, BUN/Creatinine Ratio 12.2, Glucose 173 H, Calcium 9.9, Magnesium 1.3 L, Total Bilirubin 0.50, AST 11 L, ALT 18, Alkaline Phosphatase 145 H, Total Protein 6.5, Albumin 3.1 L, Globulin 3.4, Albumin/Globulin Ratio 0.9 01/11/23 04:00: WBC 11.9 H, RBC 4.14 L, Hgb 10.7 L, Hct 31.8 L, MCV 76.8 L D, MCH 25.8 L, MCHC 33.6 D, RDW Std Deviation 41.1, RDW Coeff of Rabia 15.2 H, Plt Count 358, MPV 8.6, Immature Gran % (Auto) 0.800, Neut % (Auto) 87.5 H, Lymph % (Auto) 5.0 L, Swisher % (Auto) 6.5, Eos % (Auto) 0.0, Baso % (Auto) 0.2, Absolute Neuts (auto) 10.4 H, Absolute Lymphs (auto) 0.59 L, Nucleated RBC % 0, Differential Comment SCANNED 01/11/23 04:00: Phosphorus 1.6 L 01/11/23 07:38: POC Glucose 291 H 01/11/23 11:49: POC Glucose 242 H 01/11/23 16:05: Sodium 138, Potassium 2.9 L, Chloride 110 H, Carbon Dioxide 20.0 L, Anion Gap 8, BUN 10, Creatinine 1.06, Estim Creat Clear Calc 108.69, Est GFR (MDRD) Af Amer 112, Est GFR (MDRD) Non-Af 93, BUN/Creatinine Ratio 9.4 L, Glucose 245 H, Calcium 9.7 01/11/23 16:29: POC Glucose 232 H Micro: Microbiology 01/10/23 19:37 Blood Culture (Wb) - Anticubital Left Bacteria Detection (PCR) - Preliminary 01/10/23 19:37 Blood Culture (Wb) - Anticubital Left Blood Culture - Preliminary ABG Data ABG results: ABG 01/10/23 18:59 Specimen Type ART Sample Site L Radial pH 7.05 L* Bicarbonate Actual 2.5 L Total CO2 < 5 Base Excess -28 L O2 Saturation 99 O2 % 21 ABG pCO2 9.0 L* ABG pO2 163 H Hector Test N/A O2 Delivery Device Room Air Crit Call To/Read Back Yes Blood Gas Notified Whom Dr Alvarez Rhythm Strip Rhythm Strip: Sinus Tach Rate: 112 Ectopy: None Physical Exam Const alert, oriented x3 and no apparent distress Constitutional Narrative: Patient appears older than his stated age General Appearance: cooperative, well kempt and well developed Orientation / Consciousness: awake, oriented to person, oriented to place and oriented to time HEENT normocephalic and moist oral mucous membranes HEENT Narrative: Patient has a small scab at the top of his scalp, there is no discharge from the area. Eyes PERRL, EOMs intact bilaterally and conjunctivae normal Neck supple, no JVD, thyroid normal and no carotid bruits General: trachea midline Resp normal respiratory effort, no retractions, no use of accessory muscles and clear to auscultation bilaterally Auscultation: Negative for rales, rhonchi or wheezes Cardio regular rate, regular rhythm, S1 normal heart sound, S2 normal heart sound, no murmurs, no rub and no gallops GI normal to inspection, nondistended, normoactive bowel sounds, soft to palpation, non-tender and non-distended Extremity no clubbing, cyanosis or edema Skin Skin Narrative: Patient has a stage II pressure injury to coccyx approximately 3 to 4 cm x 3 cm, there is no discharge from the area Neuro oriented x3, CN's II-XII intact bilaterally, no focal motor deficits and no sensory deficits noted Sensorium / Orientation: awake and alert Speech: speech normal Psych affect normal Assessment & Plan Assessment/Plan (1) DKA (diabetic ketoacidoses): PLAN: Plan 1. DKA-secondary to noncompliance with medication regimen and monitoring of type 1 diabetes-patient appears stable for transfer to PCU at this time, I briefly talked with his grandmother who stated that he had not been checking his blood sugars for the last 48 hours prior to coming into the hospital according to his monitor. I do not know what the solution for this problem of noncompliance will be, I am unsure if the patient is able to adequately manage his diabetes by himself. #2 positive blood culture for Streptococcus-patient will remain on vancomycin and Zosyn for now, he will be seen by ID tomorrow, I jhon another blood culture today. Case was discussed with infectious diseases #3 hypokalemia-secondary to DKA-patient was given potassium replacement, labs will be rechecked tomorrow #4 hypomagnesemia-secondary to DKA-patient was given magnesium supplementation, labs will be rechecked tomorrow #5 hypophosphatemia-secondary to DKA-patient was given phosphate supplementation, patient's labs will be rechecked tomorrow #6 use of chronic anticoagulant secondary to past history of PE-patient is currently on Xarelto #7 stage II pressure injury coccyx-wound care nurse will see the patient tomorrow, there is no discharge from the area. Total clinical time spent by myself addressing the patient's medical issues, r eviewing all of the data, and collaborating with patient's care team: 35 minutes Charges/Coding Visit Charges Inpatient E&M: 34875 Subs Hosp L2
[2023-01-11 19:45] LABS: Vancomycin, Trough Level 11.8 ug/mL (5.0-15.0)
[2023-01-11] MEDS: Potassium Chloride Oral Soln 20 MEQ/15 ML UDC 40 MEQ PO (19:48)
[2023-01-11] MEDS: Na Biphos/Potassium Phosphate PACKET 1 PACKET PO (19:48)
[2023-01-11] MEDS: Acetaminophen 325 MG Tablet PO (19:49)
[2023-01-11 23:10] LABS: Bedside Glucose 245 mg/dL (74-106)
[2023-01-12] VITALS (8 sets, daily range): BP systolic 97–114; BP diastolic 62–74; PULSE 93–110; RESP 16–18; TEMP 36.3–36.6; O2SAT 100
[2023-01-12 05:08] LABS: Absolute Lymphocyte Count 1.08 X10^3/uL (0.83-4.51); Absolute Neutrophil Count 3.8 X10^3/uL (2.0-7.7); Basophil# 0.03 X10^3/uL; Basophil% 0.6 % (0-1); Eosinophil# 0.11 X10^3/uL; Eosinophils% 2.1 % (0-5); Hematocrit 31.5 % (40-54); Hemoglobin 10.7 g/dL (13.0-16.5); Lymphocyte # 1.08 X10^3/ul (0.83-4.51); Lymphocyte % 20.2 % (19-41); Mean Corpuscular Hgb 26.2 pg (27.0-32.0); Mean Platelet Vol. 8.9 fl (6.2-12.0); Monocyte# 0.32 X10^3/uL; NRBC Flagged by Analyzer 0 % (0-5); Neutrophil # 3.76 X10^3/uL (2.7-7.7); Neutrophil % 70.4 % (47-70); Platelet Count 244 K/mm3 (150-450); RBC Distribution Width CV 15.9 % (11.6-14.6); RBC Distribution Width SD 43.1 fl (35.1-43.9); Red Blood Count 4.09 M/mm3 (4.6-6.2); White Blood Count 5.3 K/mm3 (4.4-11.0)
[2023-01-12 05:39] LABS: Anion Gap 10 (5-15); BUN 10 mg/dL (7-18); BUN/Creat Ratio 10.1 RATIO (10-20); Calcium,Total 8.6 mg/dL (8.5-10.1); Chloride 105 mmol/L (98-107); Creatinine, Serum 0.99 mg/dL (0.70-1.30); EST Glomerular Filtration Rate 100 mL/min (>60); Est Glom Filt Rate - Afr Amer 121 mL/min (>60); Estimated Creatinine Clearance 116.38 ml/min; Glucose 535 mg/dL (74-106); Magnesium 1.8 mg/dL (1.6-2.6); Potassium 2.8 mmol/L (3.5-5.1); Sodium Level 134 mmol/L (136-145)
[2023-01-12] MEDS: Insulin Lispro 100 UNIT/ML INSULN.PEN SC ×2 (05:56→17:24)
[2023-01-12 06:50] LABS: Bedside Glucose 425 mg/dL (74-106)
[2023-01-12] MEDS: 0.9% Saline Lock 10 ML Syringe IV ×2 (06:59→22:39)
[2023-01-12] MEDS: Potassium Chloride Oral Tablet 20 MEQ 40 MEQ PO (06:59)
[2023-01-12] MEDS: Potassium Chloride 10mEq/100mL 10 MEQ/100 ML IV.SOLN. 100 MEQ IV BOLUS ×4 (06:59→10:25)
[2023-01-12] MEDS: Insulin Lispro 100 UNIT/ML INSULN.PEN 17 UNIT SC ×2 (08:00→17:24)
[2023-01-12] MEDS: Na Biphos/Potassium Phosphate PACKET 1 PACKET PO ×2 (08:01→17:25)
[2023-01-12] MEDS: Insulin Glargine-YFGN 100 UNIT/ML Pen 30 UNIT SC (08:06)
--- NOTE | 2023-01-12 09:36 | WOUNDNOTE ---
wound photo: top of head
--- NOTE | 2023-01-12 09:37 | WOUNDNOTE ---
wound photo: buttock/ cleft
[2023-01-12 12:20] LABS: Bedside Glucose 81 mg/dL (74-106)
--- NOTE | 2023-01-12 12:20 | CASEMGMT ---
VERONA FONTANEZ DC Planning Follow-up: RN HUSEYIN met with pt face to face. Pt alert, oriented x4, sitting up in chair and agreeable to discussion. Pt states had been checking his glucose regularly using his continuous glucose monitor FreeStyle Niru and has all the necessary supplies for the device as well as insulin and corresponding needles. Pt states his glucose tends to run around 150. Pt states he had begun to not feel well with a bad headache. He is unable to discern if he began to feel unwell because his glucose was elevated or if he was feeling unwell and then his glucose elevated. Pt states his sensor did come off when the EMS personnel arrived to bring him to the hospital. Pt aware of upcoming appointments with Dr. Reyes and endocrinology. Asked pt if plan was still for friends to transport him to these appointments. Pt states he is not sure who will be transporting him. Pt gave permission to this RN HSUEYIN to contact his grandmother to discuss. Call placed to pt's grandmother Ines who concurrs that pt does have his necessary supplies to monitor his blood glucose and to take his insulin. States pt usually checks his glucose before meals and around 2230 each evening. States he enters these values in an ipad device. AKI Chacon able to confirm that this device is associated with the [facility] program. Discussed meals of which specifics were not shared but AKI Chacon was able to state they try to cook at home and not eat out often. pt has not been eating a lot recently. Discussed wounds. AKI Chacon states she tries to care for them using the collagen Hydrogel that they [facility] from [facility]. AKI Chacon reports that the paste that was sent home with pt upon previous discharge was not working. Discussed upcoming appointments and transportation. AKI Chacon states that they currently don't have a plan for transportation as the friends are no longer able to assist. AKI Chacon agreeable to this VERONA FONTANEZ scheduling pickup through [facility]. AKI Chacon denies any additional concerns or needs at this time. Call placed to VERONA Salazar, ONCOLOGY RN with the [facility] program to discuss pt's participation and compliance with reporting/glucose monitoring. Voicemail message left requesting a return call. Eden Myers RN CM
[2023-01-12 15:48] LABS: Phosphorus 1.7 mg/dL (2.5-4.9)
[2023-01-12] MEDS: Rivaroxaban 20 MG Tablet PO (17:24)
[2023-01-12 18:40] LABS: Bedside Glucose 217 mg/dL (74-106)
--- NOTE | 2023-01-12 19:06 | PN.HOSP_ITS ---
Reason for Visit Reason for Visit: Diagnoses Type 2 diabetes mellitus with ketoacidosis without coma (01/10/23) Acidosis, unspecified (01/10/23) Other toxic encephalopathy (01/10/23) Acute kidney failure, unspecified (01/10/23) Patient's other noncompliance with medication regimen (01/10/23) Subjective Subjective Patient was seen and examined today, his phosphorus was low today and he received oral phosphate supplementation. His potassium was also low, he received oral potassium. Patient's blood sugars have been labile today, they were initially high this morning but then dropped to 81 at lunchtime. Objective Data Objective Data Vital Signs: Vital Signs Temp Pulse Resp BP Pulse Ox O2 Del Method 97.5 F L 99 18 114/74 100 Room Air 01/12/23 16:25 01/12/23 16:25 01/12/23 16:25 01/12/23 16:25 01/12/23 16:25 01/12/23 16:25 Oxygen Delivery Method Room Air Weight: 70.3 kg Body Mass Index (BMI) 19.8 Intake & Output: Intake and Output for Last 24 Hours 01/10/23 01/11/23 01/12/23 23:59 23:59 23:59 Intake Total 4229.80 / 4229.80 3590.05 / 3590.05 1340 / 1340 Output Total 2450 / 2950 2400 / 2400 425 / 425 Balance 1779.80 / 1279.80 1190.05 / 1190.05 915 / 915 Medical Nutrition Assessment Dietitian: Malnutrition Criteria Met Start: 01/11/23 0 8:59 Freq: Status: Active Protocol: Document 01/11/23 08:59 RMA (Rec: 01/11/23 08:59 RMA [id number]) Nutrition Malnutrition Evidence of Malnutrition Exists Yes Malnutrition (severe): Chronic,Social/Behavioral/ Environmental Evidenced By Suboptimal Energy Intake ( Moderate),Weight Loss (Severe) Clinical Problem Altered Nutrient-Related Laboratory Values Etiology related to dietary noncompliance and excessive carbohydrate intake Signs/Symptoms as evidenced by HgbA1C 12.6% and blood glucose on admission 661 Status Active Problem Chronic Disease or Condition Related Malnutrition Etiology Severe pro-luigi malnutrition in the context of chronic disease and noncompliance as evidenced by inadequate oral intake and suspected excessive carbohydrate diet Signs/Symptoms as evidenced by 6% wt loss x 1 month and PO meeting less than 75% estimated nutrition needs x 2-3 months reported Status Active Problem Recommendation Dietitian Recommendations/Changes Will change diet to 2000 calorie/consistent carbohydrate. Will add 120 ml glucerna shake TID w/ medpass. Diet instruction as pt willing to co-operate. Lab / Micro Data Result Diagrams: 01/12/23 04:02 01/12/23 04:02 Labs: Laboratory Results - last 24 hr 01/11/23 19:20: Vancomycin Trough 11.8 01/11/23 22:35: POC Glucose 245 H 01/12/23 04:02: Sodium 134 L, Potassium 2.8 L, Chloride 105, Carbon Dioxide 19.0 L, Anion Gap 10, BUN 10, Creatinine 0.99, Estim Creat Clear Calc 116.38, Est GFR (MDRD) Af Amer 121, Est GFR (MDRD) Non-Af 100, BUN/Creatinine Ratio 10.1, Gluco se 535 H*, Calcium 8.6, Magnesium 1.8 01/12/23 04:02: Phosphorus 1.0 L* 01/12/23 04:02: WBC 5.3, RBC 4.09 L, Hgb 10.7 L, Hct 31.5 L, MCV 77.0 L, MCH 26.2 L, MCHC 34.0, RDW Std Deviation 43.1, RDW Coeff of Rabia 15.9 H, Plt Count 244, MPV 8.9, Immature Gran % (Auto) 0.700, Neut % (Auto) 70.4 H, Lymph % (Auto) 20.2, [place] % (Auto) 6.0, Eos % (Auto) 2.1, Baso % (Auto) 0.6, Absolute Neuts (auto) 3.8, Absolute Lymphs (auto) 1.08, Nucleated RBC % 0 01/12/23 06:25: POC Glucose 425 H 01/12/23 11:48: POC Glucose 81 01/12/23 14:55: Phosphorus 1.7 L 01/12/23 17:17: POC Glucose 217 H Micro: Microbiology 01/10/23 19:37 Blood Culture (Wb) - Anticubital Left Bacteria Detection (PCR) - Final Strep not Strep pneumo 01/10/23 19:37 Blood Culture (Wb) - Anticubital Left Blood Culture - Preliminary Rhythm Strip Rhythm Strip: Sinus Tach Rate: 112 Ectopy: None Physical Exam Const alert, oriented x3 and no apparent distress Constitutional Narrative: Patient appears cachectic, he appears older than his stated age General Appearance: cooperative, well kempt and well developed Orientation / Consciousness: awake, oriented to person, oriented to place and oriented to time HEENT normocephalic and moist oral mucous membranes Eyes PERRL, EOMs intact bilaterally and conjunctivae normal Neck supple, no JVD, thyroid normal and no carotid bruits General: trachea midline Resp normal respiratory effort, no retractions, no use of accessory muscles and clear to auscultation bilaterally Auscultation: Negative for rales, rhonchi or wheezes Cardio regular rate, regular rhythm, S1 normal heart sound, S2 normal heart sound, no murmurs, no rub and no gallops GI normal to inspection, nondistended, normoactive bowel sounds, soft to palpation, non-tender and non-distended Extremity no clubbing, cyanosis or edema Skin no rashes or lesions noted General Skin Exam: no breakdown Neuro oriented x3, CN's II-XII intact bilaterally, moves all extremities, no focal m otor deficits and no sensory deficits noted Sensorium / Orientation: awake, alert, oriented to person and oriented to place Speech: speech normal Psych affect normal Assessment & Plan Assessment/Plan (1) DKA (diabetic ketoacidoses): PLAN: Plan 1. DKA-secondary to noncompliance with medication regimen and monitoring of type 1 diabetes-continue to monitor blood sugars #2 positive blood culture for Streptococcus-this appears to be a contaminant it was only evident on 1 blood culture, I have elected to stop the patient's antibiotics and observe the patient, patient's white blood cell count was normal today #3 hypokalemia-secondary to DKA-patient was given potassium replacement, labs will be rechecked tomorrow #4 hypomagnesemia-secondary to DKA-corrected at this time #5 hypophosphatemia-secondary to DKA-patient was given phosphate supplementation, patient's labs will be rechecked tomorrow #6 use of chronic anticoagulant secondary to past history of PE-patient is currently on Xarelto #7 stage II pressure injury left buttock/cheli cleft area -wound care nurse saw the patient today, patient was reeducated on the importance of keeping pressure off the wound to promote healing, wound was cleansed with soap and water and pat it dry. Mepilex dressing was applied for protection. #8 severe chronic protein and caloric malnutrition in the context of chronic disease and noncompliance as evidenced by inadequate oral intake and suspected excessive carbohydrate diet as evidenced by 6% weight loss x1 month and p.o. meeting less than 75% of the estimated nutritional needs x2 to 3 months- patient's diet was changed to 1000-calorie consistent carbohydrate, 120 cc of Glucerna shake 3 times daily with meals was added Total clinical time spent by myself addressing the patient's medical issues, reviewing all of the data, and collaborating with patient's care team: 35 minutes Charges/Coding Visit Charges Inpatient E&M: 20271 Subs Hosp L2
[2023-01-12] MEDS: Acetaminophen 325 MG Tablet PO (22:39)
[2023-01-12 22:40] LABS: Bedside Glucose 91 mg/dL (74-106)
[2023-01-13 00:20] LABS: Bedside Glucose 107 mg/dL (74-106)
[2023-01-13 03:01] VITALS: PULSE 88
[2023-01-13 04:00] VITALS: BP 117/72; PULSE 93; RESP 17; TEMP 36.9; O2SAT 98
[2023-01-13] MEDS: Ibuprofen 400 MG Tablet PO (04:09)
[2023-01-13 05:06] LABS: Bedside Glucose 210 mg/dL (74-106)
[2023-01-13 05:53] VITALS: BMI 17.9
[2023-01-13 07:26] LABS: ALB/GLOB Ratio 0.8 RATIO (0.9-2.4); AST(SGOT) 14 U/L (15-37); Alanine Aminotransfer ALT/SGPT 15 U/L (16-61); Albumin, Serum 2.7 g/dL (3.2-5.0); Alkaline Phosphatase 111 U/L (45-117); Anion Gap 8 (5-15); BUN 12 mg/dL (7-18); BUN/Creat Ratio 18.7 RATIO (10-20); Calcium,Total 8.1 mg/dL (8.5-10.1); Chloride 107 mmol/L (98-107); Creatinine, Serum 0.64 mg/dL (0.70-1.30); EST Glomerular Filtration Rate 166 mL/min (>60); Est Glom Filt Rate - Afr Amer 200 mL/min (>60); Globulin 3.3 g/dL (2.2-4.2); Glucose 196 mg/dL (74-106); Potassium 2.7 mmol/L (3.5-5.1); Sodium Level 138 mmol/L (136-145)
[2023-01-13 07:44] VITALS: PULSE 89
[2023-01-13 08:25] LABS: Bedside Glucose 136 mg/dL (74-106)
[2023-01-13 08:37] LABS: Phosphorus 2.1 mg/dL (2.5-4.9)
[2023-01-13 09:20] VITALS: BP 108/52; PULSE 105; RESP 16; TEMP 36.8; O2SAT 98
[2023-01-13] MEDS: Insulin Lispro 100 UNIT/ML INSULN.PEN 17 UNIT SC (09:22)
[2023-01-13] MEDS: Na Biphos/Potassium Phosphate PACKET 1 PACKET PO ×2 (09:23)
[2023-01-13] MEDS: Potassium Chloride 10mEq/100mL 10 MEQ/100 ML IV.SOLN. 100 MEQ IV BOLUS ×3 (10:18→12:58)
--- NOTE | 2023-01-13 12:32 | PCM.DC ---
Discharge Instructions Diet Discharge Diet: 2000 Calorie Control Diet Activity Discharge Activity: Return to Normal Activity Weight Bearing Status: Full weight bearing Follow Up Care Test Results: Test results from this visit will be discussed in further detail at your follow-up appointment, if applicable. Discharge Plan Admission Admit Date/Time: 01/10/23 14:40 Primary Reason for Your Visit: DKA Attending Provider: Satish Be Primary Care Provider: Mario Reyes Consulting Providers: Elizabeth Alvarez Instructions Additional Instructions / Restrictions: Check your blood sugars 4 times a day and before bedtime Discharge Orders/Prescriptions Prescriptions: Continued (DME) OneTouch Verio test strips Strip See Rx Instructions .ROUTE .MEDSUPPLY Qty: 200 6RF Rx Instructions: 4x/day (DME) pen needle, diabetic [BD Ultra-Fine Lorin Pen Needle] 32 gauge x 5/32 needle See Rx Instructions .ROUTE .MEDSUPPLY Qty: 360 6RF Rx Instructions: As directed (DME) FreeStyle Niru 14 Day Sensor Kit See Rx Instructions .ROUTE .MEDSUPPLY Qty: 2 5RF Rx Instructions: As directed insulin lispro [Humalog KwikPen Insulin] 100 unit/mL insulin pen See Protocol subcut ACHS Protocol: 1. Sliding Scale Insulin Low Dosing Condition: 150-224 mg/dl = 1 unit Condition: 225-299 mg/dl = 2 units Condition: 300-374 mg/dl = 3 units Condition: 375-499 mg/dl = 4 units Condition: Greater than 449 call physician Protocol Text: - Use for Total Daily Dose of Insulin 15-27 units - Thin, elderly, renal patients LOW DOSING ALGORITHM insulin lispro [Humalog KwikPen Insulin] 100 unit/mL insulin pen 17 unit subcut TIDAC Xarelto 20 mg Tablet 20 mg PO DAILY acetaminophen [Tylenol] 325 mg Tablet 325 mg PO Q6H PRN (Reason: Pain) omeprazole 20 mg Tablet,Delayed Release (Dr/Ec) 20 mg PO DAILY PRN (Reason: Acid Reflux) potassium chloride [Klor-Con M20] 20 mEq tablet,ER particles/crystals 20 meq PO BID lactase [Lactaid] 3,000 unit Tablet 3,000 unit PO TIDCM Changed insulin glargine [Lantus Solostar U-100 Insulin] 100 unit/mL (3 mL) insulin pen 35 unit SUBCUT BID Qty: 15 0RF Referrals / Follow Up: Mario Reyes MD [Primary Care Provider] - 03/23/23 11:00 am (As previously scheduled. ) Elise Raymond NP, [employer] [Non-Staff] - 02/21/23 1:30 pm (As previously scheduled. ) Disposition Disposition (needs filled in before D/C Order can be placed): Home, Self Care
--- NOTE | 2023-01-13 12:36 | PCM.DC.SUM ---
Providers Date of Admission: 01/10/23 Date of Discharge: 01/13/23 Primary Care Physician: Dr. Mario Reyes MD Consultations 01/11/23 15:16 Consult: Onc/Wound/tree specialist Routine Comment: Reason For Visit: DKA/SEVERE METABOLIC ACIDOSIS Diagnosis Discharge Diagnosis (1) DKA (diabetic ketoacidoses): Status: Acute Code(s): E11.10 - Type 2 diabetes mellitus with ketoacidosis without coma Plan 1. DKA-secondary to noncompliance with medication regimen and monitoring of type 1 diabetes-continue to monitor blood sugars #2 positive blood culture for Streptococcus-this appears to be a contaminant it was only evident on 1 blood culture, I have elected to stop the patient's antibiotics and observe the patient, patient's white blood cell count was normal today #3 hypokalemia-secondary to DKA-patient was given potassium replacement, labs will be rechecked tomorrow #4 hypomagnesemia-secondary to DKA-corrected at this time #5 hypophosphatemia-secondary to DKA-patient was given phosphate supplementation, patient's labs will be rechecked tomorrow #6 use of chronic anticoagulant secondary to past history of PE-patient is currently on Xarelto #7 stage II pressure injury left buttock/cheli cleft area -wound care nurse saw the patient today, patient was reeducated on the importance of keeping pressure off the wound to promote healing, wound was cleansed with soap and water and pat it dry. Mepilex dressing was applied for protection. #8 severe chronic protein and caloric malnutrition in the context of chronic disease and noncompliance as evidenced by inadequate oral intake and suspected excessive carbohydrate diet as evidenced by 6% weight loss x1 month and p.o. meeting less than 75% of the estimated nutritional needs x2 to 3 months-patient's diet was changed to 1000-calorie consistent carbohydrate, 120 cc of Glucerna shake 3 times daily with meals was added Bacteremia was ruled out Total clinical time spent by myself addressing the patient's medical issues, reviewing all of the data, and collaborating with patient's care team: 35 minutes Medications at Discharge Home Medications blood sugar diagnostic (OneTouch Verio test strips) #200 ea 09/08/21 pen needle, diabetic 32 gauge x 5/32 (BD Ultra-Fine Lorin Pen Needle) #360 ea 09/08/21 flash glucose sensor (FreeStyle Niru 14 Day Sensor kit) #2 ea 10/11/21 insulin lispro 100 unit/mL subcutaneous pen (Humalog KwikPen (U-100) Insulin) 17 unit subcut TIDAC DIABETES 07/24/22 insulin lispro 100 unit/mL subcutaneous pen (Humalog KwikPen (U-100) Insulin) See Protocol subcut ACHS DM 07/24/22 rivaroxaban 20 mg tablet (Xarelto) 20 mg PO DAILY BLOOD THINNER 09/17/22 acetaminophen 325 mg tablet (Tylenol) 325 mg PO Q6H PRN Pain 01/10/23 lactase 3,000 unit tablet (Lactaid) 3,000 unit PO TIDCM LACTOSE INTOLLERANCE 01/10/23 omeprazole 20 mg tablet,delayed release 20 mg PO DAILY PRN Acid Reflux 01/10/23 potassium chloride 20 mEq tablet,extended release(part/cryst) (Klor-Con M) 20 meq PO BID SUPPLEMENT 01/10/23 insulin glargine 100 unit/mL (3 mL) subcutaneous pen (Lantus Solostar U-100 Insulin) 35 unit (0.35 mL) subcut BID DIABETES #15 mL 01/13/23 Hospital Course Operations None Procedures None Summary of Care Provided Minutes Spent on Discharge: 32 Hospital Course: This 22-year-old white male was seen in the emergency room at [facility] after being found down at home, confused, and weak. She has a long history of poorly controlled diabetes due to noncompliance, he had not been checking his blood sugars for the 8 hours at home according to his family. Patient was noted to be in DKA, he was admitted to ICU and given fluids and IV insulin. Patient's blood sugars normalized and his anion gap closed. Patient required infusions of potassium to correct his low potassium. Patient was transferred to PCU for further care, 1 blood culture was positive for strep, this was felt to be contaminant, his blood sugars were monitored and on 01/13/2023, patient was seen and examined: On examination he appeared in good health and spirits. Vital signs as documented. Skin warm and dry and without overt rashes. Neck without JVD, neck was supple, trachea midline, thyroid was normal. Lungs clear bilaterally, normal air movement was noted. Heart exam notable for regular rhythm, normal sounds and absence of murmurs, rubs or gallops. Abdomen unremarkable and without evidence of organomegaly, masses, or abdominal aortic enlargement. Bowel sounds are present, abdomen is not distended. Extremities nonedematous, no cyanosis was noted, no clubbing was noted. Neuro: Cranial nerves II through XII are grossly intact, no focal motor deficits were noted, sensation to light touch and pinprick intact, motor exam 5/5 throughout. Psych: Patient is alert and oriented x3, he does not appear anxious or depressed, he does not appear agitated. Patient was discharged in stable condition on 01/13/2023, the likelihood of the patient being admitted again for DKA is very high as he is noncompliant with outpatient treatment. Medical Records Data Medical Nutrition Assessment Dietitian: Malnutrition Criteria Met Start: 01/11/23 08:59 Freq: Status: Active Protocol: Document 01/11/23 08:59 RMA (Rec: 01/11/23 08:59 RMA [id number]) Nutrition Malnutrition Evidence of Malnutrition Exists Yes Malnutrition (severe): Chronic,Social/Behavioral/ Environmental Evidenced By Suboptimal Energy Intake ( Moderate),Weight Loss (Severe) Clinical Problem Altered Nutrient-Related Laboratory Values Etiology related to dietary noncompliance and excessive carbohydrate intake Signs/Symptoms as evidenced by HgbA1C 12.6% and blood glucose on admission 661 Status Active Problem Chronic Disease or Condition Related Malnutrition Etiology Severe pro-luigi malnutrition in the context of chronic disease and noncompliance as evidenced by inadequate oral intake and suspected excessive carbohydrate diet Signs/Symptoms as evidenced by 6% wt loss x 1 month and PO meeting less than 75% estimated nutrition needs x 2-3 months reported Status Active Problem Recommendation Dietitian Recommendations/Changes Will change diet to 2000 calorie/consistent carbohydrate. Will add 120 ml glucerna shake TID w/ medpass. Diet instruction as pt willing to co-operate. Weight / BMI Weight Weight: 63.3 kg Body Mass Index (BMI) 17.9 ABG / Lab / Microbiology Data Result Diagrams: 01/12/23 04:02 01/13/23 05:34 Laboratory: Laboratory Results - last 24 hr 01/12/23 14:55: Phosphorus 1.7 L 01/12/23 17:17: POC Glucose 217 H 01/12/23 22:00: POC Glucose 91 01/12/23 23:50: POC Glucose 107 H 01/13/23 04:08: POC Glucose 210 H 01/13/23 05:34: Sodium 138, Potassium 2.7 L*, Chloride 107, Carbon Dioxide 23.0, Anion Gap 8, BUN 12, Creatinine 0.64 L, Estim Creat Clear Calc 162.10, Est GFR (MDRD) Af Amer 200, Est GFR (MDRD) Non-Af 166, BUN/Creatinine Ratio 18.7, Glucose 196 H, Calcium 8.1 L, Total Bilirubin 0.60, AST 14 L, ALT 15 L, Alkaline Phosphatase 111, Total Protein 6.0 L, Albumin 2.7 L, Globulin 3.3, Albumin/Globulin Ratio 0.8 L 01/13/23 05:35: Phosphorus 2.1 L 01/13/23 07:59: POC Glucose 136 H Microbiology: Microbiology 01/11/23 14:50 Blood Culture (Wb) - Ankle Blood Culture - Preliminary No growth in 48 hours. 01/10/23 19:44 Blood Culture (Wb) - Anticubital Right Blood Culture - Preliminary No growth in 48 hours. 01/10/23 19:37 Blood Culture (Wb) - Anticubital Left Bacteria Detection (PCR) - Final Strep not Strep pneumo 01/10/23 19:37 Blood Culture (Wb) - Anticubital Left Blood Culture - Preliminary D/C Instructions Discharge Diet: 2000 Calorie Control Diet Weight Bearing Status: Full weight bearing Meaningful Use Info Meaningful Use Diagnoses (Choose all that apply): None applicable Discharge Plan Admission Admit Date/Time: 01/10/23 14:40 Primary Reason for Your Visit: DKA Attending Provider: Satish Be Primary Care Provider: Mario Reyes Consulting Providers: Elizabeth Alvarez Instructions Additional Instructions / Restrictions: Check your blood sugars 4 times a day and before bedtime Discharge Orders/Prescriptions Prescriptions: Continued (DME) OneTouch Verio test strips Strip See Rx Instructions .ROUTE .MEDSUPPLY Qty: 200 6RF Rx Instructions: 4x/day (DME) pen needle, diabetic [BD Ultra-Fine Lorin Pen Needle] 32 gauge x 5/32 needle See Rx Instructions .ROUTE .MEDSUPPLY Qty: 360 6RF Rx Instructions: As directed (DME) FreeStyle Niru 14 Day Sensor Kit See Rx Instructions .ROUTE .MEDSUPPLY Qty: 2 5RF Rx Instructions: As directed insulin lispro [Humalog KwikPen Insulin] 100 unit/mL insulin pen See Protocol subcut ACHS Protocol: 1. Sliding Scale Insulin Low Dosing Condition: 150-224 mg/dl = 1 unit Condition: 225-299 mg/dl = 2 units Condition: 300-374 mg/dl = 3 units Condition: 375-499 mg/dl = 4 units Condition: Greater than 449 call physician Protocol Text: - Use for Total Daily Dose of Insulin 15-27 units - Thin, elderly, renal patients LOW DOSING ALGORITHM insulin lispro [Humalog KwikPen Insulin] 100 unit/mL insulin pen 17 unit subcut TIDAC Xarelto 20 mg Tablet 20 mg PO DAILY acetaminophen [Tylenol] 325 mg Tablet 325 mg PO Q6H PRN (Reason: Pain) omeprazole 20 mg Tablet,Delayed Release (Dr/Ec) 20 mg PO DAILY PRN (Reason: Acid Reflux) potassium chloride [Klor-Con M20] 20 mEq tablet,ER particles/crystals 20 meq PO BID lactase [Lactaid] 3,000 unit Tablet 3,000 unit PO TIDCM Changed insulin glargine [Lantus Solostar U-100 Insulin] 100 unit/mL (3 mL) insulin pen 35 unit SUBCUT BID Qty: 15 0RF Referrals / Follow Up: Mario Reyes MD [Primary Care Provider] - 03/23/23 11:00 am (As previously scheduled. ) Elise Raymond NP, [employer] [Non-Staff] - 02/21/23 1:30 pm (As previously scheduled. ) Disposition Disposition (needs filled in before D/C Order can be placed): Home, Self Care Charges/Coding Visit Charges Inpatient E&M: 02737 Disch Hosp >30min
[2023-01-13 12:45] LABS: Bedside Glucose 152 mg/dL (74-106)
[2023-01-13 14:26] VITALS: BP 117/71; PULSE 96; RESP 16; TEMP 36.9; O2SAT 98
[2023-01-13] MEDS: Potassium Chloride Oral Tablet 20 MEQ 40 MEQ PO (14:28)
[2023-01-15 09:11] LABS: Bedside Glucose 55 mg/dL (74-106)
[2023-01-15 09:11] LABS: Bedside Glucose 67 mg/dL (74-106)
--- NOTE | 2023-01-15 10:12 | CASEMGMT ---
VERONA CM Follow-up: Transportation arranged for pt's appointment with Elise Raymond CNP on 02/21/23 at [address] Ref#[id number]. Pt receives a total of 30 trips per year thru [facility]. Pt has 26 remaining trips available. Attempted to schedule transportation for pt's appointment on 03/23/[address] Reyes but trips cannot be arranged prior to 46 days in advance. Calls placed to pt and pt's grandmother to communicate the above and check on pt's status since discharge. Voicemails received at both numbers and messages left requesting a return call. Collaboration with VERONA Salazar STAFFING OPERATIONS MANAGER and VERONA Mercer with Patient Link program also with review of previous and current efforts to engage pt in program with irregular inputting of glucose values noted. Pt remains enrolled in the program and efforts will continue to engage pt to self-monitor glucose levels. Eden Myers RN CM
== END 2023-01-13 15:03 | disposition home or self-care (01) | DRG 420 ==
LOC: ED 14:09 → ICU 14:55 → PCU 01-11 15:22
PROVIDERS: Hospitalist; Admitting Provider Internal Medicine; Emergency Provider Emergency Medicine; PCP Internal Medicine; Visit Provider Internal Medicine
DX: E10.10 Type 1 diabetes mellitus with ketoacidosis without coma (principal); G93.41 Metabolic encephalopathy; E43 Unspecified severe protein-calorie malnutrition; N17.9 Acute kidney failure, unspecified; L89.322 Pressure ulcer of left buttock, stage 2; E86.0 Dehydration; Z79.4 Long term (current) use of insulin; E87.6 Hypokalemia; E83.42 Hypomagnesemia; E83.39 Other disorders of phosphorus metabolism; Z68.1 Body mass index [BMI] 19.9 or less, adult; Z91.14 Patient's other noncompliance with medication regimen; Z79.01 Long term (current) use of anticoagulants; Z86.79 Personal history of other diseases of the circulatory system; Z86.711 Personal history of pulmonary embolism; Z86.718 Personal history of other venous thrombosis and embolism
CPT/HCPCS: 36415; 36600; 70450; 71045; 80048; 80053; 80202; 81001; 82009; 82550; 82803; 82962; 83605; 83735; 84100; 85014; 85018; 85025; 87040; 87077; 87149; 87641; 93005; 94668; 97802; 99252; 99285; J7030; P9612; A4216; G0463; J2405; J7799

== ENCOUNTER 2023-01-20 11:51 | Inpatient (IN) | payer MEDICAID, SELFPAY ==
[2023-01-20] VITALS (19 sets, daily range): BP systolic 104–145; BP diastolic 61–98; PULSE 87–115; RESP 18–36; TEMP 31.1–36.6; O2SAT 94–100; BMI 20.6; BMI 20.3
--- NOTE | 2023-01-20 12:35 | RAD_ITS ---
INDICATION: Altered mental status. EXAMINATION/TECHNIQUE: X-RAY - XR Chest 1 View COMPARISON: 01/10/2023. FINDINGS: LINES/DEVICES: None. LUNGS: No consolidation, edema or effusion. No pneumothorax. MEDIASTINUM AND CARDIOVASCULAR STRUCTURES: Cardiac silhouette not enlarged. Central airways and mediastinal contour are unremarkable. BONES AND SOFT TISSUES: Unremarkable. RAD/Chest 1 View (Portable) IMPRESSION: No radiographic evidence of acute cardiopulmonary disease. Electronically Signed: Mendez Sorenson MD at 12:50 EST ,
[2023-01-20] MEDS: 0.9% Normal Saline 1,000 ML 999 ML IV ×4 (12:38→19:40)
[2023-01-20 12:43] LABS: Absolute Lymphocyte Count 6.21 X10^3/uL (0.83-4.51); Absolute Neutrophil Count 13.6 X10^3/uL (2.0-7.7); Basophil# 0.18 X10^3/uL; Basophil% 0.8 % (0-1); Eosinophil# 0.13 X10^3/uL; Eosinophils% 0.6 % (0-5); Hematocrit 40.4 % (40-54); Hemoglobin 12.7 g/dL (13.0-16.5); Lymphocyte # 6.21 X10^3/ul (0.83-4.51); Lymphocyte % 26.6 % (19-41); Mean Corp Hgb Conc 31.4 g/dL (32-36); Mean Corpuscular Hgb 25.8 pg (27.0-32.0); Mean Corpuscular Volume 82.1 fL (80-94); Mean Platelet Vol. 9.3 fl (6.2-12.0); Monocyte# 2.54 X10^3/uL; Monocyte% 10.9 % (0-10); NRBC Flagged by Analyzer 0.1 % (0-5); Neutrophil # 13.64 X10^3/uL (2.7-7.7); Neutrophil % 58.3 % (47-70); POSITIVE COUNT YES; POSITIVE DIFFERENTIAL YES; POSITIVE MORPHOLOGY YES; RBC Distribution Width CV 15.2 % (11.6-14.6); RBC Distribution Width SD 44.7 fl (35.1-43.9); Red Blood Count 4.92 M/mm3 (4.6-6.2); White Blood Count 23.4 K/mm3 (4.4-11.0)
[2023-01-20 12:56] LABS: Bedside Glucose > 500 mg/dL (74-106)
[2023-01-20 12:56] LABS: Differential Indicated SCAN CRITERIA MET
[2023-01-20 12:57] LABS: Platelet Count 790 K/mm3 (150-450)
[2023-01-20 13:01] LABS: Anion Gap 31 (5-15); BUN 23 mg/dL (7-18); BUN/Creat Ratio 17.7 RATIO (10-20); Chloride 97 mmol/L (98-107); EST Glomerular Filtration Rate 73 mL/min (>60); Est Glom Filt Rate - Afr Amer 89 mL/min (>60); Estimated Creatinine Clearance 92.03 ml/min; Glucose 750 mg/dL (74-106); Magnesium 1.9 mg/dL (1.6-2.6); Phosphorus 5.8 mg/dL (2.5-4.9); Potassium 4.6 mmol/L (3.5-5.1); Sodium Level 131 mmol/L (136-145)
[2023-01-20 13:17] LABS: Differential Comment SCANNED; Platelet Estimate MKD INC (ADEQ)
--- NOTE | 2023-01-20 13:33 | EX.ED.DYSGE1 ---
HPI History of Present Illness Chief Complaint: Alt LOC Informant: EMS Narrative Narrative: Patient is a 22-year-old male with history of type 1 diabetes mellitus with medication noncompliance as well as PE on Xarelto presenting with altered mental status. Patient was discharged in the hospital a week ago for DKA. Patient was found confused by family and breathing rapidly which is his classic presentation for DKA. EMS was called and is brought to the emergency room. 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 Ulcer of leg, chronic Wound of left lower extremity Home Medications blood sugar diagnostic (Hire SpaceTouch Verio test strips) #200 ea 09/08/21 [Rx Last Taken Unknown] pen needle, diabetic 32 gauge x 5/32 (BD Ultra-Fine Lorin Pen Needle) #360 ea 09/08/21 [Rx Last Taken Unknown] flash glucose sensor (FreeStyle Niru 14 Day Sensor kit) #2 ea 10/11/21 [Rx Last Taken Unknown] insulin lispro 100 unit/mL subcutaneous pen (Humalog KwikPen (U-100) Insulin) 17 unit subcut TIDAC DIABETES 07/24/22 [History Last Taken Unknown] insulin lispro 100 unit/mL subcutaneous pen (Humalog KwikPen (U-100) Insulin) See Protocol subcut ACHS DM 07/24/22 [History Last Taken Unknown] rivaroxaban 20 mg tablet (Xarelto) 20 mg PO DAILY BLOOD THINNER 09/17/22 [History Last Taken Unknown] acetaminophen 325 mg tablet (Tylenol) 325 mg PO Q6H PRN Pain 01/10/23 [History Last Taken 01/09/23] lactase 3,000 unit tablet (Lactaid) 3,000 unit PO TIDCM LACTOSE INTOLLERANCE 01/10/23 [History Last Taken Unknown] omeprazole 20 mg tablet,delayed release 20 mg PO DAILY PRN Acid Reflux 01/10/23 [History Last Taken 2 Days Ago ~01/08/23] potassium chloride 20 mEq tablet,extended release(part/cryst) (Klor-Con M) 20 meq PO BID SUPPLEMENT 01/10/23 [History Last Taken 01/09/23] insulin glargine 100 unit/mL (3 mL) subcutaneous pen (Lantus Solostar U-100 Insulin) 35 unit (0.35 mL) subcut BID DIABETES #15 mL 01/13/23 [Rx Last Taken Unknown] Allergy/AdvReac Type Severity Reaction Status Date / Time Milk Containing Products AdvReac Diarrhea Verified 01/20/23 11:54 Family History Father Polysubstance overdose Patient father young secondary to OD. Mother Iron deficiency anemia Other Asthma CVA (cerebral vascular accident) Diabetes Hypertension Thyroid disorder Surgical History H/O right knee surgery History of surgery on extremity Hx of knee surgery Social History housing: other details: Lives with his grandmother, aunt and mother. Smoking Status: Never smoker alcohol intake: current alcohol intake frequency: a few times a month substance use type: does not use ROS ROS ED Review of Systems ROS Unobtainable: due to mental status EXAM Physical Exam Const Vital Signs: 01/20/23 11:54 01/20/23 11:57 01/20/23 13:00 Temperature 97.0 F L 98 F Temperature Source Temporal Temporal Pulse Rate 101 H 90 Respiratory Rate 36 H 20 H Respiratory Pattern Kussmaul Blood Pressure 145/90 H 123/87 H Blood Pressure Mean 108 99 Pulse Ox 100 100 Oxygen Delivery Method Nasal Cannula Room Air Oxygen Flow Rate (L/min) 2 01/20/23 12:52 Temperature Temperature Source Pulse Rate 90 Respiratory Rate 20 H Respiratory Pattern Blood Pressure 123/87 H Blood Pressure Mean 99 Pulse Ox 98 Oxygen Delivery Method Oxygen Flow Rate (L/min) Constitutional Narrative: Chronically ill-appearing, somnolent HEENT Reports dry mucous membranes Negative for trauma Mouth ED: Yes dry mucous membranes Mouth: dry mucous membranes Eyes PERRL and EOMs intact bilaterally Neck supple Neck Narrative: Normal range of motion Chest Wall inspection of chest normal Resp Resp Narrative: Rapid respiratory rate, clear breath sounds. This is consistent with Kussamal respirations Effort and Inspection: Negative for retractions Cardio regular rhythm Rate: tachycardic GI normal to inspection, nondistended, normoactive bowel sounds Neuro Neuro Narrative: No focal deficits. Moving all extremities. Localizes to pain. Intermittently grunts but does not follow commands well. Sensorium / Orientation: alert and stuporous Motor Exam: general weakness Skin no wounds MDM MDM MDM Narrative Medical decision making narrative: Patient is evaluated for altered mental status and rapid breathing. Presentation is consistent with DKA which she is well-known for in this emergency room. He has a history of noncompliance. He is not any family at the bedside at this time. EKG shows sinus tachycardia and incomplete right bundle branch block, compared to prior EKG on 01/10/2023 there is no acute changes. Clinically patient appears dehydrated. I suspect he has an encephalopathy secondary to his profound metabolic acidosis. Blood sugar greater than 600 on glucometer read. Patient started on 2 L of IV fluid. He is currently maintaining his own respirations protecting his airway so I do not think he should be intubated and I think that would be dangerous as he is currently maintaining his own respiratory compensation for his acidosis. Patient is found to be profoundly acidotic with a pH of 6.5 and is given IV bicarb. Will be admitted to medicine service. Patient does have a leukocytosis of 23.4, platelet count of 790 bicarb of 3 and sodium of 131. Suspect all this is reactive from his DKA. He is afebrile. Will monitor for further signs of infection. Case is discussed with admitting physician, Dr. Uribe, patient will be admitted to the ICU. He will be started on insulin drip in the ICU. History & Record Review Discussion w/independent historian: EMS personnel (Patient was found lying prone on the basement floor of his bedroom. Family felt he was lethargic and they laid him on the floor. Family states that their glucometer read high. Patient then transferred to the emergency room.) Additional record(s) reviewed:: Prior inpatient record (Discharge summary from 01/13/2023 independently reviewed by myself. Patient was discharged with DKA secondary to noncompliance. He did have a single positive blood culture for Streptococcus which was thought to be contaminant. He had a downtrending leukocytosis with no source of infection. ) Lab Data Attestation: I reviewed the patient's lab results. Labs: Laboratory Results - last 24 hr 03/11/23 03/11/23 03/11/23 12:30 12:30 12:30 WBC 23.4 H RBC 4.92 Hgb 12.7 L Hct 40.4 MCV 82.1 MCH 25.8 L MCHC 31.4 L RDW Std Deviation 44.7 H RDW Coeff of Rabia 15.2 H Plt Count 790 H* MPV 9.3 Immature Gran % (Auto) 2.800 H Neut % (Auto) 58.3 Lymph % (Auto) 26.6 Clinch % (Auto) 10.9 H Eos % (Auto) 0.6 Baso % (Auto) 0.8 Absolute Neuts (auto) 13.6 H Absolute Lymphs (auto) 6.21 H Nucleated RBC % 0.1 Differential Comment SCANNED Diff Path Review May foll Platelet Estimate [employer] INC Sodium 131 L Potassium 4.6 Chloride 97 L Carbon Dioxide 3.0 L* Anion Gap 31 H BUN 23 H Creatinine 1.30 Estim Creat Clear Calc 92.03 Est GFR (MDRD) Af Amer 89 Est GFR (MDRD) Non-Af 73 BUN/Creatinine Ratio 17.7 Glucose 750 H* Serum Osmolality Calcium 10.0 Phosphorus 5.8 H Magnesium 1.9 Total Bilirubin Direct Bilirubin AST ALT Alkaline Phosphatase Total Protein Albumin Globulin Acetone Level LARGE H POC Glucose 01/20/23 01/20/23 01/20/23 12:30 12:30 12:30 WBC RBC Hgb Hct MCV MCH MCHC RDW Std Deviation RDW Coeff of Rabia Plt Count MPV Immature Gran % (Auto) Neut % (Auto) Lymph % (Auto) Clinch % (Auto) Eos % (Auto) Baso % (Auto) Absolute Neuts (auto) Absolute Lymphs (auto) Nucleated RBC % Differential Comment Diff Path Review Platelet Estimate Sodium Potassium Chloride Carbon Dioxide Anion Gap BUN Creatinine Estim Creat Clear Calc [employer]IVIST [employer]IT[employer] HISTORY Est GFR (MDRD) Af Amer Est GFR (MDRD) Non-Af BUN/Creatinine Ratio Glucose Serum Osmolality 353 H Calcium Phosphorus Magnesium Total Bilirubin 0.50 Direct Bilirubin 0.07 AST 18 ALT 28 Alkaline Phosphatase 225 H Total Protein 8.3 H Albumin 3.8 Globulin 4.5 H Acetone Level POC Glucose 01/20/23 12:35 WBC RBC Hgb Hct MCV MCH MCHC RDW Std Deviation RDW Coeff of Rabia Plt Count MPV Immature Gran % (Auto) Neut % (Auto) Lymph % (Auto) Clinch % (Auto) Eos % (Auto) Baso % (Auto) Absolute Neuts (auto) Absolute Lymphs (auto) Nucleated RBC % Differential Comment Diff Path Review Platelet Estimate Sodium Potassium Chloride Carbon Dioxide Anion Gap BUN Creatinine Estim Creat Clear Calc Est GFR (MDRD) Af Amer Est GFR (MDRD) Non-Af BUN/Creatinine Ratio Glucose Serum Osmolality Calcium Phosphorus Magnesium Total Bilirubin Direct Bilirubin AST ALT Alkaline Phosphatase Total Protein Albumin Globulin Acetone Level POC Glucose > 500 H* Radiography Diagnostic Testing: Clinical Impression(s) from Imaging Studies Chest X-Ray 01/20/23 12:35 IMPRESSION: No radiographic evidence of acute cardiopulmonary disease. Electronically Signed: Mendez Sorenson MD at 12:50 EST , Critical Care Time Critical Care Time: Yes Critical care time (excluding procedures): 30-74 minutes (40), Arranging Admission or Transfer and Performing Direct Patient Care at Bedside Discharge Plan Triage Chief Complaint: Alt LOC Other Complaint: Hyperglycemia ED Provider: Virginia Ngyuễn Dx/Rx/DC Orders Clinical Impression: Toxic metabolic encephalopathy, Tachycardia, DKA (diabetic ketoacidoses), Noncompliance with diabetes treatment Primary Care Provider: Mario Reyes Disposition Disposition: [facility]
--- NOTE | 2023-01-20 13:53 | PCM.HP.STD ---
HPI - General General Date of Admission: 01/20/23 Date of Service: 01/20/23 Chief Complaint: DKA In unconscious and unresponsive state. HPI Narrative SHIRA STEPHENSON, is a 22 M who was brought by EMS for leg problem on the basement floor, lethargic, rapid breathing. Patient was only responsive to shaking by EMS. No verbal response. When I saw the patient in ED, he slid from the bed, he is half upper trunk on the bed and lower trunk and feet on the floor in prone position. Patient does not open eyes and tightly closed with light. He is unresponsive, not talking, does not response even after shaking. Patient was lifted and put back on the bed with the help of nursing staff. EMS vitals shows respiratory rate 24, heart rate 102 BP 120/82. Patient was discharged about a week ago and is back with similar condition in DKA with rapid breathing. Respiratory rate 36/min. Labs reviewed and consistent with DKA with high anion gap metabolic acidosis. Discussed in assessment and plan. ABG/VBG not done in ED yet. [facility] Medical History Asthma Diabetes mellitus type 1 femur surgery GERD (gastroesophageal reflux disease) Hypokalemia Kidney disease Lower extremity edema Nausea and vomiting Non-smoker Noncompliance Nonhealing surgical wound Psychosocial problem Severe protein-calorie malnutrition Sinus tachycardia seen on cafeteria monitor Ulcer of leg, chronic Wound of left lower extremity Home Medications blood sugar diagnostic (OneTouch Verio test strips) #200 ea 09/08/21 [Rx Last Taken Unknown] pen needle, diabetic 32 gauge x 5/32 (BD Ultra-Fine Lorin Pen Needle) #360 ea 09/08/21 [Rx Last Taken Unknown] flash glucose sensor (FreeStyle Niru 14 Day Sensor kit) #2 ea 10/11/21 [Rx Last Taken Unknown] insulin lispro 100 unit/mL subcutaneous pen (Humalog KwikPen (U-100) Insulin) 17 unit subcut TIDAC DIABETES 07/24/22 [History Last Taken Unknown] insulin lispro 100 unit/mL subcutaneous pen (Humalog KwikPen (U-100) Insulin) See Protocol subcut ACHS DM 07/24/22 [History Last Taken Unknown] rivaroxaban 20 mg tablet (Xarelto) 20 mg PO DAILY BLOOD THINNER 09/17/22 [History Last Taken Unknown] acetaminophen 325 mg tablet (Tylenol) 325 mg PO Q6H PRN Pain 01/10/23 [History Last Taken 01/09/23] lactase 3,000 unit tablet (Lactaid) 3,000 unit PO TIDCM LACTOSE INTOLLERANCE 01/10/23 [History Last Taken Unknown] omeprazole 20 mg tablet,delayed release 20 mg PO DAILY PRN Acid Reflux 01/10/23 [History Last Taken 2 Days Ago ~01/08/23] potassium chloride 20 mEq tablet,extended release(part/cryst) (Klor-Con M) 20 meq PO BID SUPPLEMENT 01/10/23 [History Last Taken 01/09/23] insulin glargine 100 unit/mL (3 mL) subcutaneous pen (Lantus Solostar U-100 Insulin) 35 unit (0.35 mL) subcut BID DIABETES #15 mL 01/13/23 [Rx Last Taken Unknown] Allergy/AdvReac Type Severity Reaction Status Date / Time Milk Containing Products AdvReac Diarrhea Verified 01/20/23 11:54 Family History Father Polysubstance overdose Patient father young secondary to OD. Mother Iron deficiency anemia Other Asthma CVA (cerebral vascular accident) Diabetes Hypertension Thyroid disorder Surgical History H/O right knee surgery History of surgery on extremity Hx of knee surgery Social History housing: other details: Lives with his grandmother, aunt and mother. Smoking Status: Never smoker alcohol intake: current alcohol intake frequency: a few times a month substance use type: does not use ROS ROS Narrative 14 system ROS unobtainable as patient is unconscious and unresponsive. Review of Systems ROS Unobtainable: due to encephalopathy Vital Signs Vital Signs Vital Signs: 01/20/23 11:54 01/20/23 11:57 Temperature 97.0 F L Temperature Source Temporal Pulse Rate 101 H Respiratory Rate 36 H Respiratory Pattern Kussmaul Blood Pressure 145/90 H Blood Pressure Mean 108 Pulse Ox 100 Oxygen Delivery Method Nasal Cannula Oxygen Flow Rate (L/min) 2 Weight Weight: 160 lb 14.999 oz Body Mass Index (BMI) 20.6 Physical Exam Narrative General: Unconscious, no verbal response, unresponsive. HEENT: Atraumatic, Normocephalic. Patient keeps eyes closed with light, involuntarily closes eyelids. Oral: Oral mucosa dry. No Gingival or Mucosal Lesions/ Ulcerations Neck: Supple, No JVD, Negative Carotid Bruits Lungs: Rapid breathing, Kussmaul breathing with deep abdominal wound. Air entry diminished in bilateral lung bases. No crepitation/rhonchi Cardiovascular: Mild sinus tachycardia, Normal S1, Normal S2, No murmurs Abdomen: Scaphoid abdomen. Bowel Sounds sluggish, Soft, Non Tender, Non-Distended : Urinary incontinent, diaper is wet. No renal angle tenderness. No suprapubic tenderness. Extremities: No edema, Capillary Refill Less than 3 Seconds Skin: Stage II cleft pressure ulcer. Present on previous admission Musculoskeletal: No Tenderness to Palpation of Joints or Extremities. ROM muscle strength could not be examined. Neurological: Unconscious, unresponsive, no verbal response. Neuro exam unobtainable. Does not seem a focal exam. Psych/Mental Status: Unconscious. Results Lab / Micro Data Result Diagrams: 01/20/23 12:30 01/20/23 12:30 Labs: Laboratory Results - last 24 hr 01/20/23 12:30: Sodium 131 L, Potassium 4.6, Chloride 97 L, Carbon Dioxide 3.0 L*, Anion Gap 31 H, BUN 23 H, Creatinine 1.30, Estim Creat Clear Calc 92.03, Est GFR (MDRD) Af Amer 89, Est GFR (MDRD) Non-Af 73, BUN/Creatinine Ratio 17.7, Glucose 750 H*, Calcium 10.0, Phosphorus 5.8 H, Magnesium 1.9 01/20/23 12:30: Acetone Level LARGE H 01/20/23 12:30: WBC 23.4 H, RBC 4.92, Hgb 12.7 L, Hct 40.4, MCV 82.1, MCH 25.8 L, MCHC 31.4 L, RDW Std Deviation 44.7 H, RDW Coeff of Rabia 15.2 H, Plt Count 790 H*, MPV 9.3, Immature Gran % (Auto) 2.800 H, Neut % (Auto) 58.3, Lymph % (Auto) 26.6, [place] % (Auto) 10.9 H, Eos % (Auto) 0.6, Baso % (Auto) 0.8, Absolute Neuts (auto) 13.6 H, Absolute Lymphs (auto) 6.21 H, Nucleated RBC % 0.1, Differential Comment SCANNED, Diff Path Review May foll, Platelet Estimate [employer] 01/20/23 12:30: Sodium Cancelled, Potassium Cancelled, Chloride Cancelled, Carbon Dioxide Cancelled, Anion Gap Cancelled, BUN Cancelled, Creatinine Cancelled, Estim Creat Clear Calc Cancelled, Est GFR (MDRD) Af Amer Cancelled, Est GFR (MDRD) Non-Af Cancelled, BUN/Creatinine Ratio Cancelled, Glucose Cancelled, Calcium Cancelled 01/20/23 12:35: POC Glucose > 500 H* Radiology Impression Chest X-Ray 01/20/23 12:35 IMPRESSION: No radiographic evidence of acute cardiopulmonary disease. Electronically Signed: Mendez Sorenson MD at 12:50 EST , Assessment & Plan Assessment/Plan (1) DKA (diabetic ketoacidoses): (2) Metabolic acidosis: (3) Acute encephalopathy: PLAN: Plan This is a 22-year-old gentleman with history of recurrent admission for DKA is being brought by EMS for similar condition unresponsive unconscious state. 1. DKA with high anion gap metabolic acidosis: Patient is being admitted in ICU. Glucose in BMP 790. High anion gap 31, bicarb 3.0, sodium 131 and chloride 97. Magnesium 1.9, phosphorus high 5.8. Liver chemistry and serum osmolarity ordered. Pack Mule Worker consult. VBG stat ordered. Empirically 50 mEq of sodium bicarb ordered. 2 L normal saline bolus ordered in ED and continue IV fluid normal saline as per DKA protocol. Started on insulin drip. BMP every 4 hourly. Monitor labs, intake output. NPO. 2. Acute encephalopathy most likely metabolic encephalopathy from DKA: Patient is unconscious unresponsive. Involuntary closing eyelids. Urinary incontinence. Nursing care. Orientation cues. 3. History of PE on chronic anticoagulation: Use Lovenox while patient is n.p.o. and then switch to Xarelto when patient is consistent oral is permitted. 4. Recent diagnosis of stage II pressure injury left buttock/cheli cleft area during previous hospital stay: Nursing care, changing position. Wound nurse consult. Wet-to-dry dressing..? Mepilex dressing was applied for protection. 5. Severe chronic protein and caloric malnutrition in the context of chronic disease and noncompliance as evidenced by inadequate oral intake and suspected excessive carbohydrate diet as evidenced by 6% weight loss x1 month and p.o. meeting less than 75% of the estimated nutritional needs x2 to 3 months: Mechanical Engineering Professor consult. DVT prophylaxis: On Lovenox. Advised her as well as CODE STATUS: Could not be verified. Patient is on consults. Full code unverified Laboratory Results 01/20/23 12:30: Sodium 131 L, Potassium 4.6, Chloride 97 L, Carbon Dioxide 3.0 L*, Anion Gap 31 H, BUN 23 H, Creatinine 1.30, Estim Creat Clear Calc 92.03, Est GFR (MDRD) Af Amer 89, Est GFR (MDRD) Non-Af 73, BUN/Creatinine Ratio 17.7, Glucose 750 H*, Calcium 10.0, Phosphorus 5.8 H, Magnesium 1.9 01/20/23 12:30: Acetone Level LARGE H 01/20/23 12:30: WBC 23.4 H, RBC 4.92, Hgb 12.7 L, Hct 40.4, MCV 82.1, MCH 25.8 L, MCHC 31.4 L, RDW Std Deviation 44.7 H, RDW Coeff of Rabia 15.2 H, Plt Count 790 H*, MPV 9.3, Immature Gran % (Auto) 2.800 H, Neut % (Auto) 58.3, Lymph % (Auto) 26.6, [place] % (Auto) 10.9 H, Eos % (Auto) 0.6, Baso % (Auto) 0.8, Absolute Neuts (auto) 13.6 H, Absolute Lymphs (auto) 6.21 H, Nucleated RBC % 0.1, Differential Comment SCANNED, Diff Path Review March johnny Platelet Estimate MKD INC 01/20/23 12:30: Serum Osmolality Pending 01/20/23 12:30: Total Bilirubin Pending, Direct Bilirubin Pending, AST Pending, ALT Pending, Alkaline Phosphatase Pending, Total Protein Pending, Albumin Pending 01/20/23 12:35: POC Glucose > 500 H* Clinical Impression(s) from Imaging Studies Chest X-Ray 01/20/23 12:35 IMPRESSION: No radiographic evidence of acute cardiopulmonary disease. Electronically Signed: Mendez Sorenson MD at 12:50 EST , Charges/Coding Visit Charges Inpatient E&M: 19619 Init Hosp L3
[2023-01-20 14:01] LABS: Osmolality, Serum 353 mOsm/KG (275-295)
[2023-01-20 14:05] LABS: AST(SGOT) 18 U/L (15-37); Alanine Aminotransfer ALT/SGPT 28 U/L (16-61); Albumin, Serum 3.8 g/dL (3.2-5.0); Alkaline Phosphatase 225 U/L (45-117); Bilirubin, Direct 0.07 mg/dL (0.00-0.30); Globulin 4.5 g/dL (2.2-4.2); Protein, Total 8.3 g/dL (6.4-8.2)
[2023-01-20 14:07] LABS: Bacteria 0 SEEN /hpf (None Seen); Mucous, Urine 0 SEEN /hpf (<or=2+); Red Blood Cells-Urine 0 SEEN /hpf (0-5); Squamous Epithelial Cells - UA 0 SEEN /hpf (0-5)
[2023-01-20 14:12] LABS: Color, Urine Yellow (Yellow); Glucose, Dipstick 1000 mg/dl (Normal); Leukocyte Esterase-Dipstick 25 /ul (Negative); Nitrite-Dipstick Negative (Negative); Occult Blood-Urine 10 /ul (Negative); Protein-Dipstick 100 mg/dl (Negative); Specific Gravity, Urine 1.015 (1.002-1.030); Urine Bilirubin Dipstick Negative (Negative); Urine Clarity Clear (Clear); Urine Urobilinogen Normal (Normal)
[2023-01-20 14:15] LABS: Ketone-Dipstick 150 mg/dl (Negative)
[2023-01-20 14:19] LABS: White Blood Cells 0-5 SEEN /hpf (0-5); Yeast-Urine 1+ /hpf (None Seen)
[2023-01-20] MEDS: Sodium Bicarbonate 8.4% 50 ML Syringe 50 MEQ IV (14:27)
[2023-01-20 15:07] LABS: Anion Gap 29 (5-15); BUN 24 mg/dL (7-18); BUN/Creat Ratio 19.5 RATIO (10-20); Calcium,Total 9.1 mg/dL (8.5-10.1); Chloride 102 mmol/L (98-107); Creatinine, Serum 1.23 mg/dL (0.70-1.30); EST Glomerular Filtration Rate 78 mL/min (>60); Est Glom Filt Rate - Afr Amer 95 mL/min (>60); Estimated Creatinine Clearance 97.27 ml/min; Glucose 724 mg/dL (74-106); Potassium 4.5 mmol/L (3.5-5.1); Sodium Level 135 mmol/L (136-145)
[2023-01-20 16:35] LABS: Bedside Glucose > 500 mg/dL (74-106)
[2023-01-20] MEDS: 0.9% Normal Saline 1,000 ML 250 ML IV (16:50)
--- NOTE | 2023-01-20 17:20 | NURSING ---
pt condition prevents education at this time
[2023-01-20 17:21] LABS: Bedside Glucose > 500 mg/dL (74-106)
[2023-01-20] MEDS: Sodium Bicarbonate 50 MEQ/50 ML Vial IV (17:48)
[2023-01-20] MEDS: 0.9% Saline Lock 10 ML Syringe IV ×2 (18:02→19:39)
[2023-01-20] MEDS: Enoxaparin 80 MG/0.8 ML Syringe 70 MG SC (18:04)
[2023-01-20 18:10] LABS: Blood Gas Specimen Type VEN; VBG BASE EXCESS < -30 mmol/L (-1.0-3.5); VBG PO2 148 mmHg (25-40); VBG SO2 93 % (50-70); VBG TCO2 < 5 mmol/L (23-33); VBG pCO2 21.5 mmHg (41-51)
[2023-01-20 19:04] LABS: Anion Gap 29 (5-15); BUN 24 mg/dL (7-18); BUN/Creat Ratio 24.8 RATIO (10-20); Calcium,Total 8.7 mg/dL (8.5-10.1); Chloride 112 mmol/L (98-107); Creatinine, Serum 0.97 mg/dL (0.70-1.30); EST Glomerular Filtration Rate 103 mL/min (>60); Est Glom Filt Rate - Afr Amer 125 mL/min (>60); Estimated Creatinine Clearance 121.65 ml/min; Glucose 486 mg/dL (74-106); Potassium 3.7 mmol/L (3.5-5.1); Sodium Level 144 mmol/L (136-145)
[2023-01-20 19:21] LABS: Bedside Glucose 399 mg/dL (74-106)
[2023-01-20 19:21] LABS: Bedside Glucose 475 mg/dL (74-106)
[2023-01-20] MEDS: KCL 20MEQ in 0.45%NS 20 MEQ/1,000 ML IV.SOLN. 125 MEQ IV (19:41)
[2023-01-20] MEDS: Sodium Bicarbonate 8.4% 50 ML Syringe 100 MEQ IV (19:45)
[2023-01-21] VITALS (24 sets, daily range): BP systolic 92–134; BP diastolic 39–75; PULSE 93–128; RESP 12–20; TEMP 36.9–38; O2SAT 98–100; BMI 20.8
[2023-01-21 00:07] LABS: BUN 22 mg/dL (7-18); BUN/Creat Ratio 30.6 RATIO (10-20); Calcium,Total 8.4 mg/dL (8.5-10.1); Chloride 119 mmol/L (98-107); Creatinine, Serum 0.72 mg/dL (0.70-1.30); EST Glomerular Filtration Rate 145 mL/min (>60); Est Glom Filt Rate - Afr Amer 176 mL/min (>60); Estimated Creatinine Clearance 163.89 ml/min; Glucose 336 mg/dL (74-106); Potassium 3.7 mmol/L (3.5-5.1); Sodium Level 147 mmol/L (136-145)
[2023-01-21] MEDS: KCL 20MEQ in D5.45NS 20 MEQ/1,000 ML IV.SOLN. 150 MEQ IV ×2 (00:07→07:03)
--- NOTE | 2023-01-21 00:21 | CPS ---
Abnormal VBG results read back to Dr. Randolph
[2023-01-21 01:01] LABS: Bedside Glucose 289 mg/dL (74-106)
[2023-01-21 01:01] LABS: Bedside Glucose 332 mg/dL (74-106)
[2023-01-21 01:01] LABS: Bedside Glucose 331 mg/dL (74-106)
[2023-01-21 01:01] LABS: Bedside Glucose 245 mg/dL (74-106)
[2023-01-21 01:01] LABS: Bedside Glucose 275 mg/dL (74-106)
[2023-01-21] MEDS: Sodium Bicarbonate 8.4% 50 ML Syringe 50 MEQ IV (01:31)
[2023-01-21 03:19] LABS: Absolute Lymphocyte Count 0.53 X10^3/uL (0.83-4.51); Absolute Neutrophil Count 11.2 X10^3/uL (2.0-7.7); Basophil# 0.03 X10^3/uL; Basophil% 0.2 % (0-1); Hematocrit 28.7 % (40-54); Hemoglobin 9.9 g/dL (13.0-16.5); Lymphocyte # 0.53 X10^3/ul (0.83-4.51); Lymphocyte % 4.1 % (19-41); Mean Corp Hgb Conc 34.5 g/dL (32-36); Mean Corpuscular Hgb 26.5 pg (27.0-32.0); Mean Corpuscular Volume 76.7 fL (80-94); Mean Platelet Vol. 8.9 fl (6.2-12.0); Monocyte# 1.13 X10^3/uL; Monocyte% 8.7 % (0-10); NRBC Flagged by Analyzer 0 % (0-5); Neutrophil # 11.19 X10^3/uL (2.7-7.7); Neutrophil % 86.4 % (47-70); POSITIVE DIFFERENTIAL YES; Platelet Count 478 K/mm3 (150-450); RBC Distribution Width CV 15.7 % (11.6-14.6); Red Blood Count 3.74 M/mm3 (4.6-6.2)
[2023-01-21 03:21] LABS: Differential Indicated SCAN CRITERIA MET
[2023-01-21 03:36] LABS: Bedside Glucose 236 mg/dL (74-106)
[2023-01-21 03:36] LABS: Bedside Glucose 235 mg/dL (74-106)
[2023-01-21 03:40] LABS: Anion Gap 18 (5-15); BUN 18 mg/dL (7-18); BUN/Creat Ratio 18.9 RATIO (10-20); Calcium,Total 8.8 mg/dL (8.5-10.1); Chloride 121 mmol/L (98-107); Creatinine, Serum 0.95 mg/dL (0.70-1.30); EST Glomerular Filtration Rate 105 mL/min (>60); Est Glom Filt Rate - Afr Amer 127 mL/min (>60); Estimated Creatinine Clearance 124.21 ml/min; Glucose 241 mg/dL (74-106); Potassium 3.6 mmol/L (3.5-5.1); Sodium Level 149 mmol/L (136-145)
[2023-01-21 03:50] LABS: Anisocytosis 1+; Differential Comment SCANNED
[2023-01-21 04:31] LABS: Bedside Glucose 202 mg/dL (74-106)
[2023-01-21 05:04] LABS: Blood Gas Specimen Type VEN; O2 Delivery Device RA
[2023-01-21 05:06] LABS: Time Given 1841
[2023-01-21 05:09] LABS: VBG pH 6.88 (7.32-7.42)
[2023-01-21 05:10] LABS: VBG Bicarbonate 3 mmol/L (22-26); VBG PO2 68 mmHg (25-40)
[2023-01-21 05:11] LABS: VBG BASE EXCESS < -30 mmol/L (-1.0-3.5)
[2023-01-21 05:12] LABS: VBG SO2 76 % (50-70); VBG TCO2 < 5 mmol/L (23-33)
[2023-01-21 05:24] LABS: Blood Gas Specimen Type VEN; O2 Delivery Device RA; Time Given 2350
[2023-01-21 05:25] LABS: VBG BASE EXCESS -27 mmol/L (-1.0-3.5); VBG Bicarbonate 3 mmol/L (22-26); VBG PO2 62 mmHg (25-40); VBG pCO2 9.2 mmHg (41-51); VBG pH 7.11 (7.32-7.42)
[2023-01-21 05:26] LABS: VBG SO2 84 % (50-70); VBG TCO2 < 5 mmol/L (23-33)
[2023-01-21 05:31] LABS: Bedside Glucose 210 mg/dL (74-106)
--- NOTE | 2023-01-21 05:50 | CON.PCM.CC_ITS ---
Assessment & Plan Assessment/Plan (1) Acute encephalopathy: (2) DKA (diabetic ketoacidosis): PLAN: Plan RECOMMENDATIONS: 1. Continue IV fluid resuscitation and continuous insulin infusion per DKA protocol. 2. Aggressive electrolyte repletion as indicated. 3. Continue therapeutic Lovenox. Resume Xarelto at discharge. 4. The patient should remain n.p.o. pending closure of his anion gap x2. 5. Encourage incentive spirometer use and mobilize patient as tolerated. IMPRESSIONS: 1. Diabetic ketoacidosis The patient has a longstanding history of diabetes mellitus with outpatient medical noncompliance leading to frequent hospitalizations for DKA. The patient once again presented in an encephalopathic state with profound metabolic acidosis. Plan to continue current supportive measures including aggressive volume resuscitation, electrolyte repletion and continuous insulin infusion until anion gap is closed x2. 2. Encephalopathy Most likely metabolic in etiology in the setting of diabetic ketoacidosis. The patient's mentation has improved with volume resuscitation and insulin. Plan to continue to monitor clinically. No further work-up or intervention is required at this time. 3. History of pulmonary embolism/malnutrition/anemia Complicates care, management, recovery and prognosis. Continue Lovenox for now. Resume Xarelto at discharge. This note was generated with [email or web address] dictation software. It may contain incorrect words, spelling, and punctuation that were not noted in checking the note before signing. HPI Consult Data Date of Consult: 01/21/23 HPI Narrative Reason for Consultation: Diabetic ketoacidosis HPI Narrative: The patient is a 22-year-old male, with a history as outlined below, who presented to the emergency department via EMS on January 20 in an unresponsive s ramirez. The patient was just discharged from the hospital on January 13 after having been admitted with diabetic ketoacidosis. The patient has a known history of diabetes mellitus with medical noncompliance and frequent hospitalizations. Despite his history of medical noncompliance, the patient insisted that he was utilizing his insulin as prescribed following his most recent discharge from the hospital. On presentation to the emergency department, the patient was initially documented to be afebrile with a temperature of 97 ?F. He was, however, notably tachypneic. Initial laboratory evaluation revealed a white blood cell count of 23,000. Platelet count was elevated at 790,000. VBG demonstrated a pH of 6.6 with a PCO2 of less than 5 and PO2 of 148. Chemistry profile was notable for a sodium of 131, chloride of 97, bicarbonate of 3.0, anion gap of 31 and creatinine of 1.3. Glucose was elevated at 750. Large serum acetone level was noted. Chest x-ray demonstrated no acute cardiopulmonary process. The patient received supplemental IV fluid hydration was started on a continuous insulin infusion. He was subsequently admitted to the medical intensive care unit for further management. [facility] Medical History Asthma Diabetes mellitus type 1 femur surgery GERD (gastroesophageal reflux disease) Hypokalemia Kidney disease Lower extremity edema Nausea and vomiting Non-smoker Noncompliance Nonhealing surgical wound Psychosocial problem Severe protein-calorie malnutrition Sinus tachycardia seen on telemetry monitor Ulcer of leg, chronic Wound of left lower extremity Home Medications blood sugar diagnostic (FastDueTouch Verio test strips) #200 ea 09/08/21 [Rx Last Taken Unknown] pen needle, diabetic 32 gauge x 5/32 (BD Ultra-Fine Lorin Pen Needle) #360 ea 09/08/21 [Rx Last Taken Unknown] flash glucose sensor (FreeStyle Niru 14 Day Sensor kit) #2 ea 10/11/21 [Rx Last Taken Unknown] insulin lispro 100 unit/mL subcutaneous pen (Humalog KwikPen (U-100) Insulin) 17 unit subcut TIDAC DIABETES 07/24/22 [History Last Taken Unknown] insulin lispro 100 unit/mL subcutaneous pen (Humalog KwikPen (U-100) Insulin) See Protocol subcut ACHS DM 07/24/22 [History Last Taken Unknown] rivaroxaban 20 mg tablet (Xarelto) 20 mg PO DAILY BLOOD THINNER 09/17/22 [History Last Taken Unknown] acetaminophen 325 mg tablet (Tylenol) 325 mg PO Q6H PRN Pain 01/10/23 [History Last Taken 01/09/23] lactase 3,000 unit tablet (Lactaid) 3,000 unit PO TIDCM LACTOSE INTOLLERANCE 01/10/23 [History Last Taken Unknown] omeprazole 20 mg tablet,delayed release 20 mg PO DAILY PRN Acid Reflux 01/10/23 [History Last Taken 2 Days Ago ~01/08/23] potassium chloride 20 mEq tablet,extended release(part/cryst) (Klor-Con M) 20 meq PO BID SUPPLEMENT 01/10/23 [History Last Taken 01/09/23] insulin glargine 100 unit/mL (3 mL) subcutaneous pen (Lantus Solostar U-100 Insulin) 35 unit (0.35 mL) subcut BID DIABETES #15 mL 01/13/23 [Rx Last Taken Unknown] Allergy/AdvReac Type Severity Reaction Status Date / Time Milk Containing Products AdvReac Diarrhea Verified 01/20/23 11:54 Family History Father Polysubstance overdose Patient father young secondary to OD. Mother Iron deficiency anemia Other Asthma CVA (cerebral vascular accident) Diabetes Hypertension Thyroid disorder Surgical History H/O right knee surgery History of surgery on extremity Hx of knee surgery Social History housing: other details: Lives with his grandmother, aunt and mother. Smoking Status: Never smoker alcohol intake: current alcohol intake frequency: a few times a month substance use type: does not use ROS ROS Narrative 10 systems were reviewed with pertinent positives as noted in the HPI above. Physical Exam Const alert and no apparent distress General Appearance: cooperative HEENT normocephalic and head/scalp atraumatic HEENT Narrative: Dry mucous membranes Eyes PERRL, EOMs intact bilaterally and conjunctivae normal Neck supple General: trachea midline Chest inspection of chest normal Resp normal respiratory effort Effort and Inspection: tachypneic Auscultation: Negative for rales, rhonchi or wheezes Cardio S1 normal heart sound and S2 normal heart sound Rate: tachycardic GI normal to inspection, nondistended, normoactive bowel sounds Extremity no clubbing, cyanosis or edema Skin no rashes or lesions noted Neuro oriented x3, CN's II-XII intact bilaterally and no focal motor deficits Psych Mood & Affect: flat affect Lab / Micro Data Result Diagrams: 01/21/23 03:00 01/21/23 03:00 Labs: Laboratory Results - last 24 hr 01/20/23 12:30: Sodium 131 L, Potassium 4.6, Chloride 97 L, Carbon Dioxide 3.0 L*, Anion Gap 31 H, BUN 23 H, Creatinine 1.30, Estim Creat Clear Calc 92.03, Est GFR (MDRD) Af Amer 89, Est GFR (MDRD) Non-Af 73, BUN/Creatinine Ratio 17.7, Glucose 750 H*, Calcium 10.0, Phosphorus 5.8 H, Magnesium 1.9 01/20/23 12:30: Acetone Level LARGE H 01/20/23 12:30: WBC 23.4 H, RBC 4.92, Hgb 12.7 L, Hct 40.4, MCV 82.1, MCH 25.8 L , MCHC 31.4 L, RDW Std Deviation 44.7 H, RDW Coeff of Rabia 15.2 H, Plt Count 790 H*, MPV 9.3, Immature Gran % (Auto) 2.800 H, Neut % (Auto) 58.3, Lymph % (Auto) 26.6, [place] % (Auto) 10.9 H, Eos % (Auto) 0.6, Baso % (Auto) 0.8, Absolute Neuts (auto) 13.6 H, Absolute Lymphs (auto) 6.21 H, Nucleated RBC % 0.1, Differential Comment SCANNED, Diff Path Review Carissa turner, Platelet Estimate MKD INC 01/20/23 12:30: Serum Osmolality 353 H 01/20/23 12:30: Total Bilirubin 0.50, Direct Bilirubin 0.07, AST 18, ALT 28, Alkaline Phosphatase 225 H, Total Protein 8.3 H, Albumin 3.8, Globulin 4.5 H 01/20/23 12:35: POC Glucose > 500 H* 01/20/23 14:02: Urine Color Yellow, Urine Clarity Clear, Urine pH 5.0, Ur Specific [place] 1.015, Urine Protein 100 H, Urine Glucose (UA) 1000 H, Urine Ketones 150 A*, Urine Occult Blood 10 H, Urine Nitrite Negative, Urine Bilirubin Negative, Urine Urobilinogen Normal, Ur Leukocyte Esterase 25 H, Urine RBC 0 SEEN, Urine WBC 0-5 SEEN, Ur Squamous Epith Cells 0 SEEN, Urine Bacteria 0 SEEN, Urine Mucus 0 SEEN, Urine Yeast 1+ 01/20/23 14:25: Sodium 135 L, Potassium 4.5, Chloride 102, Carbon Dioxide 4.0 L* , Anion Gap 29 H, BUN 24 H, Creatinine 1.23, Estim Creat Clear Calc 97.27, Est GFR (MDRD) Af Amer 95, Est GFR (MDRD) Non-Af 78, BUN/Creatinine Ratio 19.5, Glucose 724 H*, Calcium 9.1 01/20/23 15:46: POC Glucose > 500 H* 01/20/23 16:58: POC Glucose > 500 H* 01/20/23 17:53: POC Glucose 475 H* 01/20/23 18:30: Sodium 144, Potassium 3.7, Chloride 112 H, Carbon Dioxide 3.0 L* , Anion Gap 29 H, BUN 24 H, Creatinine 0.97, Estim Creat Clear Calc 121.65, Est GFR (MDRD) Af Amer 125, Est GFR (MDRD) Non-Af 103, BUN/Creatinine Ratio 24.8 H, Glucose 486 H*, Calcium 8.7 01/20/23 18:56: POC Glucose 399 H 01/20/23 19:54: POC Glucose 331 H 01/20/23 21:07: POC Glucose 332 H 01/20/23 22:02: POC Glucose 275 H 01/20/23 22:05: Sodium 147 H, Potassium 3.7, Chloride 119 H, Carbon Dioxide 4.0 L*, Anion Gap TNP, BUN 22 H, Creatinine 0.72, Estim Creat Clear Calc 163.89, Est GFR (MDRD) Af Amer 176, Est GFR (MDRD) Non-Af 145, BUN/Creatinine Ratio 30.6 H, Glucose 336 H, Calcium 8.4 L 01/20/23 23:06: POC Glucose 289 H 01/21/23 00:04: POC Glucose 245 H 01/21/23 01:16: POC Glucose 236 H 01/21/23 03:00: Sodium 149 H, Potassium 3.6, Chloride 121 H, Carbon Dioxide 10.0 L, Anion Gap 18 H, BUN 18, Creatinine 0.95, Estim Creat Clear Calc 124.21, Est GFR (MDRD) Af Amer 127, Est GFR (MDRD) Non-Af 105, BUN/Creatinine Ratio 18.9, Glucose 241 H, Calcium 8.8 01/21/23 03:00: WBC 13.0 H, RBC 3.74 L, Hgb 9.9 L, Hct 28.7 L, MCV 76.7 L D, MCH 26.5 L, MCHC 34.5 D, RDW Std Deviation 42.0, RDW Coeff of Rabia 15.7 H, Plt Count 478 H, MPV 8.9, Immature Gran % (Auto) 0.600, Neut % (Auto) 86.4 H, Lymph % (Auto) 4.1 L, [place] % (Auto) 8.7, Eos % (Auto) 0.0, Baso % (Auto) 0.2, Absolute Neuts (auto) 11.2 H, Absolute Lymphs (auto) 0.53 L, Nucleated RBC % 0, Differential Comment SCANNED, Anisocytosis 1+ 01/21/23 03:04: POC Glucose 235 H 01/21/23 04:09: POC Glucose 202 H 01/21/23 05:10: POC Glucose 210 H ABG Data ABG results: ABG 01/20/23 01/20/23 01/20/23 13:29 18:41 23:50 Specimen Type MARILYNN MARILYNN MARILYNN Sample Site NA NA VBG pH 6.60 L* 6.88 L* 7.11 L* VBG pO2 148 H 68 H 62 H VBG HCO3 3 L 3 L VBG Total CO2 < 5 L < 5 L < 5 L VBG O2 Sat (Calc) 93 H 76 H 84 H VBG Base Excess < -30 L < -30 L -27 L POC Mix VBG pCO2 Pt Tmp 21.5 L 15.0 L* 9.2 L* O2 Delivery Device RA RA Crit Call To/Read Back Yes Blood Gas Notified Whom Delma Randolph Dr. White Blood Gas Notified Time 13:31:26 [id number] Radiology Impression Chest X-Ray 01/20/23 12:35 IMPRESSION: No radiographic evidence of acute cardiopulmonary disease. Electronically Signed: Mendez Sorenson MD at 12:50 EST , Charges/Coding Visit Charges Inpatient E&M: 52576 Init Hosp L3
[2023-01-21 06:35] LABS: Bedside Glucose 187 mg/dL (74-106)
[2023-01-21] MEDS: Enoxaparin 80 MG/0.8 ML Syringe 70 MG SC ×2 (07:00→17:30)
[2023-01-21] MEDS: 0.9% Saline Lock 10 ML Syringe IV ×2 (07:03→21:43)
--- NOTE | 2023-01-21 07:03 | PCM.PN.HOSP ---
Reason for Visit Reason for Visit: Diagnoses Type 2 diabetes mellitus with ketoacidosis without coma (01/20/23) Acidosis, unspecified (01/20/23) Encephalopathy, unspecified (01/20/23) Subjective Subjective Follow-up for DKA and acute encephalopathy. Mental status has improved. Patient understands and answer questions in full sentences. Tells me correct month and year, day and night his name and date of . Objective Data Objective Data Vital Signs: Vital Signs Temp Pulse Resp BP Pulse Ox O2 Del Method O2 Flow Rate 100.3 F H 128 H 17 104/52 L 100 Room Air 2 01/21/23 06:00 01/21/23 06:00 01/21/23 06:00 01/21/23 06:00 01/21/23 06:00 01/21/23 06:00 01/20/23 11:54 Oxygen Flow Rate (L/min) 2 Oxygen Delivery Method Room Air Weight: 162 lb 11.218 oz Body Mass Index (BMI) 20.8 Intake & Output: Intake and Output for Last 24 Hours 01/19/23 01/20/23 01/22/23 23:59 23:59 00:59 Intake Total 3765.95 / 3765.95 616.35 / 616.35 Output Total 4350 / 4350 1800 / 1800 Balance -584.05 / -584.05 -1183.65 / -1183.65 Lab / Micro Data Result Diagrams: 01/21/23 03:00 01/21/23 08:35 Labs: Laboratory Results - last 24 hr 01/20/23 12:30: Sodium 131 L, Potassium 4.6, Chloride 97 L, Carbon Dioxide 3.0 L*, Anion Gap 31 H, BUN 23 H, Creatinine 1.30, Estim Creat Clear Calc 92.03, Est GFR (MDRD) Af Amer 89, Est GFR (MDRD) Non-Af 73, BUN/Creatinine Ratio 17.7, Glucose 750 H*, Calcium 10.0, Phosphorus 5.8 H, Magnesium 1.9 01/20/23 12:30: Acetone Level LARGE H 01/20/23 12:30: WBC 23.4 H, RBC 4.92, Hgb 12.7 L, Hct 40.4, MCV 82.1, MCH 25.8 L, MCHC 31.4 L, RDW Std Deviation 44.7 H, RDW Coeff of Rabia 15.2 H, Plt Count 790 H*, MPV 9.3, Immature Gran % (Auto) 2.800 H, Neut % (Auto) 58.3, Lymph % (Auto) 26.6, [place] % (Auto) 10.9 H, Eos % (Auto) 0.6, Baso % (Auto) 0.8, Absolute Neuts (auto) 13.6 H, Absolute Lymphs (auto) 6.21 H, Nucleated RBC % 0.1, Differential Comment SCANNED, Diff Path Review May foll, Platelet Estimate MKD INC 01/20/23 12:30: Serum Osmolality 353 H 01/20/23 12:30: Total Bilirubin 0.50, Direct Bilirubin 0.07, AST 18, ALT 28, Alkaline Phosphatase 225 H, Total Protein 8.3 H, Albumin 3.8, Globulin 4.5 H 01/20/23 12:35: POC Glucose > 500 H* 01/20/23 14:02: Urine Color Yellow, Urine Clarity Clear, Urine pH 5.0, Ur Specific [place] 1.015, Urine Protein 100 H, Urine Glucose (UA) 1000 H, Urine Ketones 150 A*, Urine Occult Blood 10 H, Urine Nitrite Negative, Urine Bilirubin Negative, Urine Urobilinogen Normal, Ur Leukocyte Esterase 25 H, Urine RBC 0 SEEN, Urine WBC 0-5 SEEN, Ur Squamous Epith Cells 0 SEEN, Urine Bacteria 0 SEEN, Urine Mucus 0 SEEN, Urine Yeast 1+ 01/20/23 14:25: Sodium 135 L, Potassium 4.5, Chloride 102, Carbon Dioxide 4.0 L*, Anion Gap 29 H, BUN 24 H, Creatinine 1.23, Estim Creat Clear Calc 97.27, Est GFR (MDRD) Af Amer 95, Est GFR (MDRD) Non-Af 78, BUN/Creatinine Ratio 19.5, Glucose 724 H*, Calcium 9.1 01/20/23 15:46: POC Glucose > 500 H* 01/20/23 16:58: POC Glucose > 500 H* 01/20/23 17:53: POC Glucose 475 H* 01/20/23 18:30: Sodium 144, Potassium 3.7, Chloride 112 H, Carbon Dioxide 3.0 L*, Anion Gap 29 H, BUN 24 H, Creatinine 0.97, Estim Creat Clear Calc 121.65, Est GFR (MDRD) Af Amer 125, Est GFR (MDRD) Non-Af 103, BUN/Creatinine Ratio 24.8 H, Glucose 486 H*, Calcium 8.7 01/20/23 18:56: POC Glucose 399 H 01/20/23 19:54: POC Glucose 331 H 01/20/23 21:07: POC Glucose 332 H 01/20/23 22:02: POC Glucose 275 H 01/20/23 22:05: Sodium 147 H, Potassium 3.7, Chloride 119 H, Carbon Dioxide 4.0 L*, Anion Gap TNP, BUN 22 H, Creatinine 0.72, Estim Creat Clear Calc 163.89, Est GFR (MDRD) Af Amer 176, Est GFR (MDRD) Non-Af 145, BUN/Creatinine Ratio 30.6 H, Glucose 336 H, Calcium 8.4 L 01/20/23 23:06: POC Glucose 289 H 01/21/23 00:04: POC Glucose 245 H 01/21/23 01:16: POC Glucose 236 H 01/21/23 03:00: Sodium 149 H, Potassium 3.6, Chloride 121 H, Carbon Dioxide 10.0 L, Anion Gap 18 H, BUN 18, Creatinine 0.95, Estim Creat Clear Calc 124.21, Est GFR (MDRD) Af Amer 127, Est GFR (MDRD) Non-Af 105, BUN/Creatinine Ratio 18.9, Glucose 241 H, Calcium 8.8 01/21/23 03:00: WBC 13.0 H, RBC 3.74 L, Hgb 9.9 L, Hct 28.7 L, MCV 76.7 L D, MCH 26.5 L, MCHC 34.5 D, RDW Std Deviation 42.0, RDW Coeff of Rabia 15.7 H, Plt Count 478 H, MPV 8.9, Immature Gran % (Auto) 0.600, Neut % (Auto) 86.4 H, Lymph % (Auto) 4.1 L, [place] % (Auto) 8.7, Eos % (Auto) 0.0, Baso % (Auto) 0.2, Absolute Neuts (auto) 11.2 H, Absolute Lymphs (auto) 0.53 L, Nucleated RBC % 0, Differential Comment SCANNED, Anisocytosis 1+ 01/21/23 03:04: POC Glucose 235 H 01/21/23 04:09: POC Glucose 202 H 01/21/23 05:10: POC Glucose 210 H 01/21/23 06:15: POC Glucose 187 H ABG Data ABG results: ABG 01/20/23 01/20/23 01/20/23 13:29 18:41 23:50 Specimen Type MARILYNN MARILYNN MARILYNN Sample Site NA NA VBG pH 6.60 L* 6.88 L* 7.11 L* VBG pO2 148 H 68 H 62 H VBG HCO3 3 L 3 L VBG Total CO2 < 5 L < 5 L < 5 L VBG O2 Sat (Calc) 93 H 76 H 84 H VBG Base Excess < -30 L < -30 L -27 L POC Mix VBG pCO2 Pt Tmp 21.5 L 15.0 L* 9.2 L* O2 Delivery Device RA RA Crit Call To/Read Back Yes Blood Gas Notified Whom Delma Randolph Dr. White Blood Gas Notified Time 13:31:26 [id number] Radiography Diagnostic Testing: Radiology Impression Chest X-Ray 01/20/23 12:35 IMPRESSION: No radiographic evidence of acute cardiopulmonary disease. Electronically Signed: Mendez Sorenson MD at 12:50 EST , Physical Exam Narrative Physical exam General: Alert. X3. Speech coherent. Verbal and comprehensive. Fatigue HEENT: Atraumatic, Normocephalic. PERRLA, EOMI Oral: Oral mucosa moist. No Gingival or Mucosal Lesions/ Ulcerations Neck: Supple, No JVD, Negative Carotid Bruits Lungs: Air entry diminished in bilateral lung bases. No crepitation/rhonchi. No tachypnea. Normal breathing pattern. Cardiovascular: sinus tachycardia, Normal S1, Normal S2, No murmurs Abdomen: Scaphoid abdomen. Bowel Sounds sluggish, Soft, Non Tender, Non-Distended : Youssef catheter, clear urine. No renal angle tenderness. No suprapubic tenderness. Extremities: No edema, Capillary Refill Less than 3 Seconds Skin: Stage II cleft pressure ulcer. Present on previous admission Musculoskeletal: No Tenderness to Palpation of Joints or Extremities. ROM full and intact Neurological: No focal neurological deficit. Muscle strength 5/5 at major joints. Psych/Mental Status: Flat affect. Assessment & Plan Assessment/Plan (1) DKA (diabetic ketoacidoses): (2) Metabolic acidosis: (3) Acute encephalopathy: PLAN: Plan This is a 22-year-old gentleman with history of recurrent admission for DKA is being brought by EMS for similar condition unresponsive unconscious state. 1. DKA with high anion gap metabolic acidosis: Patient is being admitted in ICU. Glucose in BMP 790. High anion gap 31, bicarb 3.0, sodium 131 and chloride 97. Magnesium 1.9, phosphorus high 5.8. Liver chemistry and serum osmolarity ordered. Site Acquisition Manager consult. VBG stat ordered. Empirically 50 mEq of sodium bicarb ordered. 2 L normal saline bolus ordered in ED and continue IV fluid normal saline as per DKA protocol. Started on insulin drip. BMP every 4 hourly. Monitor labs, intake/output. NPO. 01/21: Patient seen by tax accountant. Anion gap is still not closed. Last night gap 17. Bicarb 13, hyponatremia and hypokalemia. IV fluid changed to D5 half NS + KCl. Continue volume resuscitation and monitor urine output. Patient has Youssef catheter. Aggressive electrolyte repletion. Continue insulin infusion. Glucoses in 200. 2. Acute encephalopathy most likely metabolic encephalopathy from DKA: Patient is unconscious unresponsive. Involuntary closing eyelids. Urinary incontinence. Nursing care. Orientation cues. 01/21: Tmax 100.4 F. Urine culture and blood cultures x2 ordered. Patient gets high temperature more than 101 Fahrenheit x2, will start antibiotic. Acute encephalopathy has resolved. Oriented x3. Patient answers simple questions after understanding. Patient denies signs or symptoms of focal infection including UTI, respiratory tract infection, abdominal pain. During previous hospital stay patient had blood culture positive of GPC,[place]. Rapid flu and COVID antigen test ordered 3. History of PE on chronic anticoagulation: Use Lovenox while patient is n.p.o. and then switch to Xarelto when patient is consistent oral is permitted. 01/21: Continue therapeutic Lovenox until patient oral is allowed. Continue spirometry. 4. Recent diagnosis of stage II pressure injury left buttock/ cleft area during previous hospital stay: Nursing care, changing position. Wound nurse consult. Wet-to-dry dressing..? Mepilex dressing was applied for protection. 5. Severe chronic protein and caloric malnutrition in the context of chronic disease and noncompliance as evidenced by inadequate oral intake and suspected excessive carbohydrate diet as evidenced by 6% weight loss x1 month and p.o. meeting less than 75% of the estimated nutritional needs x2 to 3 months: Program Engagement Director consult. DVT prophylaxis: On Lovenox. Full code 01/21/23 03:04: POC Glucose 235 H 01/21/23 04:09: POC Glucose 202 H 01/21/23 05:00: Sodium 153 H, Potassium 3.2 L, Chloride 124 H, Carbon Dioxide 13.0 L, Anion Gap 16 H, BUN 16, Creatinine 1.00, Estim Creat Clear Calc 120.95, Est GFR (MDRD) Af Amer 120, Est GFR (MDRD) Non-Af 100, BUN/Creatinine Ratio 16.0, Glucose 207 H, Calcium 8.6, Magnesium 1.2 L 01/21/23 05:10: POC Glucose 210 H 01/21/23 06:15: POC Glucose 187 H 01/21/23 07:01: POC Glucose 183 H 01/21/23 08:05: POC Glucose 211 H 01/21/23 08:35: Sodium 152 H, Potassium 3.0 L, Chloride 122 H, Carbon Dioxide 13.0 L, Anion Gap 17 H, BUN 15, Creatinine 1.08, Estim Creat Clear Calc 111.99, Est GFR (MDRD) Af Amer 110, Est GFR (MDRD) Non-Af 91, BUN/Creatinine Ratio 13.9, Glucose 221 H, Calcium 8.8 01/21/23 09:05: POC Glucose 166 H Clinical Impression(s) from Imaging Studies Chest X-Ray 01/20/23 12:35 IMPRESSION: No radiographic evidence of acute cardiopulmonary disease. Electronically Signed: Mendez Sorenson MD at 12:50 EST , Charges/Coding Visit Charges Inpatient E&M: 01213 Subs Hosp L3
[2023-01-21 07:25] LABS: Bedside Glucose 183 mg/dL (74-106)
[2023-01-21 07:27] LABS: Anion Gap 16 (5-15); BUN 16 mg/dL (7-18); Calcium,Total 8.6 mg/dL (8.5-10.1); Chloride 124 mmol/L (98-107); EST Glomerular Filtration Rate 100 mL/min (>60); Est Glom Filt Rate - Afr Amer 120 mL/min (>60); Estimated Creatinine Clearance 120.95 ml/min; Glucose 207 mg/dL (74-106); Magnesium 1.2 mg/dL (1.6-2.6); Potassium 3.2 mmol/L (3.5-5.1); Sodium Level 153 mmol/L (136-145)
[2023-01-21] MEDS: Ondansetron 4 MG/2 ML Vial IV (08:24)
[2023-01-21 08:36] LABS: Bedside Glucose 211 mg/dL (74-106)
[2023-01-21 09:02] LABS: Anion Gap 17 (5-15); BUN 15 mg/dL (7-18); BUN/Creat Ratio 13.9 RATIO (10-20); Calcium,Total 8.8 mg/dL (8.5-10.1); Chloride 122 mmol/L (98-107); Creatinine, Serum 1.08 mg/dL (0.70-1.30); EST Glomerular Filtration Rate 91 mL/min (>60); Est Glom Filt Rate - Afr Amer 110 mL/min (>60); Estimated Creatinine Clearance 111.99 ml/min; Glucose 221 mg/dL (74-106); Sodium Level 152 mmol/L (136-145)
[2023-01-21 09:26] LABS: Bedside Glucose 166 mg/dL (74-106)
[2023-01-21 10:25] LABS: Bedside Glucose 158 mg/dL (74-106)
[2023-01-21] MEDS: Potassium Chloride 40 MEQ in Dext 5%-0.45% NS 1,000 ML 150 MEQ IV ×2 (10:36→17:27)
[2023-01-21] MEDS: Magnesium Sulfate 4gm/100mL 4 GM/100 ML IV.SOLN. IV (10:38)
[2023-01-21 11:20] LABS: Bedside Glucose 133 mg/dL (74-106)
[2023-01-21 12:20] LABS: Bedside Glucose 100 mg/dL (74-106)
[2023-01-21 12:38] LABS: Anion Gap 10 (5-15); BUN 13 mg/dL (7-18); BUN/Creat Ratio 13.3 RATIO (10-20); Calcium,Total 8.8 mg/dL (8.5-10.1); Chloride 123 mmol/L (98-107); Creatinine, Serum 0.98 mg/dL (0.70-1.30); EST Glomerular Filtration Rate 102 mL/min (>60); Est Glom Filt Rate - Afr Amer 123 mL/min (>60); Estimated Creatinine Clearance 123.42 ml/min; Glucose 109 mg/dL (74-106); Sodium Level 151 mmol/L (136-145)
[2023-01-21 13:16] LABS: Bedside Glucose 112 mg/dL (74-106)
[2023-01-21 14:31] LABS: Bedside Glucose 151 mg/dL (74-106)
[2023-01-21 15:36] LABS: Bedside Glucose 162 mg/dL (74-106)
[2023-01-21 16:35] LABS: Bedside Glucose 146 mg/dL (74-106)
[2023-01-21 16:41] LABS: Anion Gap 11 (5-15); BUN 12 mg/dL (7-18); BUN/Creat Ratio 13.9 RATIO (10-20); Calcium,Total 7.9 mg/dL (8.5-10.1); Chloride 124 mmol/L (98-107); Creatinine, Serum 0.86 mg/dL (0.70-1.30); EST Glomerular Filtration Rate 118 mL/min (>60); Est Glom Filt Rate - Afr Amer 142 mL/min (>60); Estimated Creatinine Clearance 140.64 ml/min; Glucose 152 mg/dL (74-106); Sodium Level 150 mmol/L (136-145)
[2023-01-21] MEDS: Insulin Glargine-YFGN 100 UNIT/ML Pen 10 UNIT SC (17:28)
[2023-01-21] MEDS: Potassium Chloride Oral Tablet 20 MEQ 40 MEQ PO ×2 (17:30→21:44)
[2023-01-21 17:36] LABS: Bedside Glucose 145 mg/dL (74-106)
[2023-01-21 19:21] LABS: Bedside Glucose 159 mg/dL (74-106)
[2023-01-21 20:52] LABS: Magnesium 1.7 mg/dL (1.6-2.6)
[2023-01-21 20:56] LABS: Bedside Glucose 145 mg/dL (74-106)
[2023-01-21] MEDS: Insulin Lispro 100 UNIT/ML INSULN.PEN SC (21:44)
[2023-01-22] VITALS (14 sets, daily range): BP systolic 107–119; BP diastolic 54–75; PULSE 89–102; RESP 12–18; TEMP 36.5–37.7; O2SAT 96–100; BMI 20.9
[2023-01-22 03:16] LABS: Bedside Glucose 162 mg/dL (74-106)
[2023-01-22] MEDS: Enoxaparin 80 MG/0.8 ML Syringe 70 MG SC (04:26)
[2023-01-22 04:50] LABS: Anion Gap 9 (5-15); BUN 7 mg/dL (7-18); BUN/Creat Ratio 10.3 RATIO (10-20); Calcium,Total 8.1 mg/dL (8.5-10.1); Chloride 108 mmol/L (98-107); Creatinine, Serum 0.68 mg/dL (0.70-1.30); EST Glomerular Filtration Rate 155 mL/min (>60); Est Glom Filt Rate - Afr Amer 188 mL/min (>60); Estimated Creatinine Clearance 177.87 ml/min; Glucose 326 mg/dL (74-106); Potassium 3.5 mmol/L (3.5-5.1); Sodium Level 135 mmol/L (136-145)
[2023-01-22 06:41] LABS: VBG Bicarbonate 2 mmol/L (22-26)
--- NOTE | 2023-01-22 07:03 | PN.CC_ITS ---
Assessment & Plan Assessment/Plan (1) Acute encephalopathy: (2) DKA (diabetic ketoacidosis): PLAN: Plan RECOMMENDATIONS: 1. Okay to discontinue IV fluids 2. Aggressive electrolyte repletion as indicated. 3. Okay to transition to Xarelto 4. Change basal insulin to 20 twice daily 5. Encourage incentive spirometer use and mobilize patient as tolerated. 6. Okay to leave the intensive care unit 7. Hemodynamically stable on room air with gap closed, will sign off from a critical care perspective IMPRESSIONS: 1. Diabetic ketoacidosis Patient with severe acidosis on presentation with a pH of 6.11. Patient's gap has been closed x2. Patient does have some elevated blood sugars, but this is likely secondary to lower basal insulin. This will be increased. Patient with poor insight into his disease process. Did discuss with the patient about the importance of compliance with therapy to avoid complications. 2. Encephalopathy Resolved. Most likely metabolic in etiology in the setting of diabetic ketoacidosis. Patient is at his baseline at this time. Patient is flat on pr evious hospitalizations. Plan to continue to monitor clinically. No further work-up or intervention is required at this time. 3. History of pulmonary embolism/malnutrition/anemia Complicates care, management, recovery and prognosis. Continue Lovenox for now. Resume Xarelto at discharge. Subjective Subjective Patient did well overnight. Patient is feeling improved compared to previous. Patient is not reporting any chest pain. Patient does state he is hungry and ready for breakfast. Patient's gap was closed and he was placed on subcutaneous insulin overnight. Patient does not have any nausea this morning. Objective Data Objective Data Vital Signs: Vital Signs Temp Pulse Resp BP Pulse Ox O2 Del Method O2 Flow Rate 37.3 C 91 15 111/72 100 Room Air 2 01/22/23 06:00 01/22/23 06:00 01/22/23 06:00 01/22/23 06:00 01/22/23 06:00 01/22/23 06:00 01/20/23 11:54 Oxygen Flow Rate (L/min) 2 Oxygen Delivery Method Room Air Weight: 74.2 kg Body Mass Index (BMI) 20.9 Intake & Output: Intake and Output for Last 24 Hours 01/20/23 01/21/23 01/22/23 22:59 23:59 23:59 Intake Total 2510 / 2510 Output Total 2080 / 2080 Balance 430 / 430 Medical Nutrition Assessment Dietitian: Malnutrition Criteria Met Start: 01/21/23 09:26 Freq: Status: Active Protocol: Document 01/21/23 09:26 (Rec: 01/21/23 09:26 AG [id number]) Nutrition Malnutrition Evidence of Malnutrition Exists Yes Malnutrition (moderate): Chronic Evidenced By Suboptimal Energy Intake ( Moderate),Physical Changes ( Mild) Clinical Problem Chronic Disease or Condition Related Malnutrition Etiology moderate, chronic malnutrition related to poor DM management , inadequate oral intake Signs/Symptoms as evidenced by estimated PO intake meeting <75% of estimated energy needs > 3 months; Mild muscle wasting/ fat loss evident per physical exam in orbital, clavicle, acromion, and temporal areas. Status Active Problem Recommendation Dietitian Recommendations/Changes recommend advance diet as tolerated to 2200 calorie controlled/consistent CHO; glucerna 120mL 4x/day w/ medpass when PO diet advanced Lab / Micro Data Attestation: I reviewed the patient's lab results. Result Diagrams: 01/21/23 03:00 01/22/23 04:20 Labs: Laboratory Results - last 24 hr 01/21/23 05:00: Sodium 153 H, Potassium 3.2 L, Chloride 124 H, Carbon Dioxide 13.0 L, Anion Gap 16 H, BUN 16, Creatinine 1.00, Estim Creat Clear Calc 120.95, Est GFR (MDRD) Af Amer 120, Est GFR (MDRD) Non-Af 100, BUN/Creatinine Ratio 16.0, Glucose 207 H, Calcium 8.6, Magnesium 1.2 L 01/21/23 07:01: POC Glucose 183 H 01/21/23 08:05: POC Glucose 211 H 01/21/23 08:35: Sodium 152 H, Potassium 3.0 L, Chloride 122 H, Carbon Dioxide 13.0 L, Anion Gap 17 H, BUN 15, Creatinine 1.08, Estim Creat Clear Calc 111.99, Est GFR (MDRD) Af Amer 110, Est GFR (MDRD) Non-Af 91, BUN/Creatinine Ratio 13.9, Glucose 221 H, Calcium 8.8 01/21/23 09:05: POC Glucose 166 H 01/21/23 10:07: POC Glucose 158 H 01/21/23 10:57: POC Glucose 133 H 01/21/23 11:58: POC Glucose 100 01/21/23 12:10: Sodium 151 H, Potassium 3.0 L, Chloride 123 H, Carbon Dioxide 18.0 L, Anion Gap 10, BUN 13, Creatinine 0.98, Estim Creat Clear Calc 123.42, Est GFR (MDRD) Af Amer 123, Est GFR (MDRD) Non-Af 102, BUN/Creatinine Ratio 13.3, Glucose 109 H, Calcium 8.8 01/21/23 12:57: POC Glucose 112 H 01/21/23 14:09: POC Glucose 151 H 01/21/23 15:11: POC Glucose 162 H 01/21/23 16:11: POC Glucose 146 H 01/21/23 16:15: Sodium 150 H, Potassium 3.0 L, Chloride 124 H, Carbon Dioxide 15.0 L, Anion Gap 11, BUN 12, Creatinine 0.86, Estim Creat Clear Calc 140.64, Est GFR (MDRD) Af Amer 142, Est GFR (MDRD) Non-Af 118, BUN/Creatinine Ratio 13.9, Glucose 152 H, Calcium 7.9 L 01/21/23 17:18: POC Glucose 145 H 01/21/23 19:01: POC Glucose 159 H 01/21/23 20:20: Magnesium 1.7 01/21/23 20:22: POC Glucose 145 H 01/21/23 21:43: POC Glucose 162 H 01/22/23 04:20: Sodium 135 L, Potassium 3.5, Chloride 108 H, Carbon Dioxide 18.0 L, Anion Gap 9, BUN 7, Creatinine 0.68 L, Estim Creat Clear Calc 177.87, Est GFR (MDRD) Af Amer 188, Est GFR (MDRD) Non-Af 155, BUN/Creatinine Ratio 10.3, Glucose 326 H, Calcium 8.1 L Micro: Microbiology 01/21/23 10:20 Nasal Secretion SARS-CoV-2 & FLU Antigen (Rapid) - Final ABG Data ABG results: ABG 01/20/23 13:29 VBG HCO3 2 L Physical Exam Const alert, oriented x3 and no apparent distress Constitutional Narrative: Minimally cooperative with exam General Appearance: cooperative HEENT normocephalic and head/scalp atraumatic Eyes PERRL, EOMs intact bilaterally and conjunctivae normal Neck supple General: trachea midline Chest inspection of chest normal Resp normal respiratory effort and no use of accessory muscles Effort and Inspection: able to speak in complete sentences Auscultation: clear to auscultation bilaterally; Negative for rales, rhonchi or wheezes Cardio regular rate, regular rhythm, S1 normal heart sound and S2 normal heart sound GI normal to inspection, nondistended, normoactive bowel sounds Extremity no clubbing, cyanosis or edema Skin no rashes or lesions noted Neuro oriented x3, CN's II-XII intact bilaterally and no focal motor deficits Psych Mood & Affect: flat affect Charges/Coding Visit Charges Inpatient E&M: 10281 Subs Hosp L2
--- NOTE | 2023-01-22 07:21 | PN.HOSP_ITS ---
Reason for Visit Reason for Visit: Unresponsiveness Subjective Subjective Mr. Carlton is a 22-year-old male who frequently is admitted to hospital in [place] who was brought to the emergency department on 01/20/2023 unresponsive. He was found in the basement floor lethargic and breathing rapidly. He was only responsive to the shaking by EMS but had no verbal response at that time. Patient was hemodynamically stable at the time of presentation but he did have significant tachypnea with a respiratory rate of 36 and he was found to have an anion gap metabolic acidosis and to be in DKA with a pH of 6.11 on presentation. He was admitted to the ICU with DKA protocol and his DKA did resolve quite rapidly. He was able to be transitioned to subcu insulin on 01/21/2023. Mental status has resolved to baseline. This is his fourth DKA admission this year. He states he has supplies at home yet he continues to come in in DKA. We will have crisis see him to evaluate whether or not this is intentional and if he has any issues that are psychiatric that would result in him not taking care of himself. Patient states he is not trying to harm himself. He reports he is taking his insulin as directed however there is no way he is doing this as he comes in with severe DKA frequently. He is medically stable now for discharge and we will have crisis evaluate him. I did inform him of this. Patient states he has been getting headaches and he thinks this is why his diabetes has been out of control. Denies any nausea vomiting or symptoms of gastroparesis. Objective Data Objective Data Vital Signs: Vital Signs Temp Pulse Resp BP Pulse Ox O2 Del Method O2 Flow Rate 99.2 F H 89 15 112/74 100 Room Air 2 01/22/23 07:00 01/22/23 07:00 01/22/23 07:00 01/22/23 07:00 01/22/23 07:00 01/22/23 07:00 01/20/23 11:54 Oxygen Flow Rate (L/min) 2 Oxygen Delivery Method Room Air Weight: 74.2 kg Body Mass Index (BMI) 20.9 Intake & Output: Intake and Output for Last 24 Hours 01/20/23 01/21/23 01/22/23 22:59 23:59 23:59 Intake Total 2509 / 0 Output Total 2079 / 2079 Balance 430 / 430 Medical Nutrition Assessment Dietitian: Malnutrition Criteria Met Start: 01/21/23 09:26 Freq: Status: Active Protocol: Document 01/21/23 09:26 (Rec: 01/21/23 09:26 AG [id number]) Nutrition Malnutrition Evidence of Malnutrition Exists Yes Malnutrition (moderate): Chronic Evidenced By Suboptimal Energy Intake ( Moderate),Physical Changes ( Mild) Clinical Problem Chronic Disease or Condition Related Malnutrition Etiology moderate, chronic malnutrition related to poor DM management , inadequate oral intake Signs/Symptoms as evidenced by estimated PO intake meeting <75% of estimated energy needs > 3 months; Mild muscle wasting/ fat loss evident per physical exam in orbital, clavicle, acromion, and temporal areas. Status Active Problem Recommendation Dietitian Recommendations/Changes recommend advance diet as tolerated to 2200 calorie controlled/consistent CHO; glucerna 120mL 4x/day w/ medpass when PO diet advanced Lab / Micro Data Result Diagrams: 01/21/23 03:00 01/22/23 04:20 Labs: Laboratory Results - last 24 hr 01/21/23 05:00: Sodium 153 H, Potassium 3.2 L, Chloride 124 H, Carbon Dioxide 13.0 L, Anion Gap 16 H, BUN 16, Creatinine 1.00, Estim Creat Clear Calc 120.95, Est GFR (MDRD) Af Amer 120, Est GFR (MDRD) Non-Af 100, BUN/Creatinine Ratio 16.0, Glucose 207 H, Calcium 8.6, Magnesium 1.2 L 01/21/23 07:01: POC Glucose 183 H 01/21/23 08:05: POC Glucose 211 H 01/21/23 08:35: Sodium 152 H, Potassium 3.0 L, Chloride 122 H, Carbon Dioxide 13.0 L, Anion Gap 17 H, BUN 15, Creatinine 1.08, Estim Creat Clear Calc 111.99, Est GFR (MDRD) Af Amer 110, Est GFR (MDRD) Non-Af 91, BUN/Creatinine Ratio 13.9, Glucose 221 H, Calcium 8.8 01/21/23 09:05: POC Glucose 166 H 01/21/23 10:07: POC Glucose 158 H 01/21/23 10:57: POC Glucose 133 H 01/21/23 11:58: POC Glucose 100 01/21/23 12:10: Sodium 151 H, Potassium 3.0 L, Chloride 123 H, Carbon Dioxide 18.0 L, Anion Gap 10, BUN 13, Creatinine 0.98, Estim Creat Clear Calc 123.42, Est GFR (MDRD) Af Amer 123, Est GFR (MDRD) Non-Af 102, BUN/Creatinine Ratio 13.3, Glucose 109 H, Calcium 8.8 01/21/23 12:57: POC Glucose 112 H 01/21/23 14:09: POC Glucose 151 H 01/21/23 15:11: POC Glucose 162 H 01/21/23 16:11: POC Glucose 146 H 01/21/23 16:15: Sodium 150 H, Potassium 3.0 L, Chloride 124 H, Carbon Dioxide 15.0 L, Anion Gap 11, BUN 12, Creatinine 0.86, Estim Creat Clear Calc 140.64, Est GFR (MDRD) Af Amer 142, Est GFR (MDRD) Non-Af 118, BUN/Creatinine Ratio 13.9, Glucose 152 H, Calcium 7.9 L 01/21/23 17:18: POC Glucose 145 H 01/21/23 19:01: POC Glucose 159 H 01/21/23 20:20: Magnesium 1.7 01/21/23 20:22: POC Glucose 145 H 01/21/23 21:43: POC Glucose 162 H 01/22/23 04:20: Sodium 135 L, Potassium 3.5, Chloride 108 H, Carbon Dioxide 18.0 L, Anion Gap 9, BUN 7, Creatinine 0.68 L, Estim Creat Clear Calc 177.87, Est GFR (MDRD) Af Amer 188, Est GFR (MDRD) Non-Af 155, BUN/Creatinine Ratio 10.3, Glucose 326 H, Calcium 8.1 L Micro: Microbiology 01/21/23 10:20 Nasal Secretion SARS-CoV-2 & FLU Antigen (Rapid) - Final ABG Data ABG results: ABG 01/20/23 13:29 VBG HCO3 2 L Physical Exam Const alert, oriented x3 and no apparent distress Constitutional Narrative: Thin, white male, watching television, appears comfortable, nontoxic, appears malnourished HEENT head/scalp atraumatic and moist oral mucous membranes Head and Scalp: normocephalic Resp normal respiratory effort, no retractions, no use of accessory muscles and clear to auscultation bilaterally Auscultation: Negative for rales, rhonchi or wheezes Cardio regular rate, regular rhythm, S1 normal heart sound, S2 normal heart sound, no murmurs, no rub, no gallops and no clicks GI normal to inspection, nondistended, normoactive bowel sounds, soft to palpation and non-tender Extremity no clubbing, cyanosis or edema Extremity Narrative: Decreased lean muscle mass, 2+ pedal pulses Neuro oriented x3, moves all extremities and no focal motor deficits Psych Psych Narrative: Affect is flat, mood seems depressed, eye contact is poor Assessment & Plan Assessment/Plan (1) DKA (diabetic ketoacidosis): (2) Noncompliance with diabetes treatment: (3) Acute encephalopathy: (4) Hypokalemia: (5) Hypernatremia: (6) Leukocytosis: (7) Severe malnutrition: PLAN: Plan Diabetic ketoacidosis -resolved -transition to SQ insulin -Lantus 20 U twice daily and Log 5 u TID --> this was started however blood sugar still elevated at lunchtime therefore we acute recently at this to 25 units twice daily and Humalog 10 units 3 times daily with a sliding scale -SSI -Accuchecks as ordered -With recurrent admissions have concern that this may be intentional and will have crisis evaluate patient prior to discharge DM-1 uncontrolled -Patient noncompliant does not follow regularly with anyone for his diabetes -A1c was obtained on 12/19/2022 and was 12.6 -Discussed the deleterious effects of long-term uncontrolled blood sugars -Patient with frequent DKA admissions -see above Hypernatremia -Resolved Hypokalemia -Resolved Leukocytosis -Trending down dramatically -Blood cultures are pending -No antibiotics empirically Severe malnutrition -Supplements -Dietitian consultation Anion gap metabolic acidosis -Resolved Metabolic encephalopathy -resolved History of pericarditis/pericardial infection -At the end of last year he was admitted to [facility] and found to have MSSA in his pericardial fluid.? He was placed on long-term antibiotics History of PE/DVT -On Xarelto at home -d/c lovenox and restart xarelto DVT prophylaxis -xarelto CODE STATUS -full code Dispo: Patient is medically stable--> will have crisis evaluate as patient has come in repeatedly with extremely low pH Charges/Coding Visit Charges Inpatient E&M: 10610 Subs Hosp L2
[2023-01-22] MEDS: Insulin Lispro 100 UNIT/ML INSULN.PEN SC ×5 (08:15→21:44)
[2023-01-22] MEDS: Insulin Glargine-YFGN 100 UNIT/ML Pen 20 UNIT SC (08:16)
[2023-01-22 08:40] LABS: Bedside Glucose 318 mg/dL (74-106)
--- NOTE | 2023-01-22 10:51 | CASEMGMT ---
Social Work SW called [facility] to inquire about previous history of pt at counseling center. SW explained [facility] is attempting to link pt with other beneficial services such as [facility]. Steven, counseling center worker, shared that pt did have diagnostic assessment scheduled for July of 2022, however pt did not show up for this appointment. BRENT Duran
--- NOTE | 2023-01-22 11:00 | CASEMGMT ---
VERONA FONTANEZ Readmission Note: Previous Admissions: 12/19 thru 12/20, 12/30 thru 01/02, 01/10 thru 01/13. All admission Dx of DKA Current Admission: Admitted 01/20/23 w/ Dx of DKA The following is per VERONA Carballo CM, during prior admission: Pt with type I DM with multiple readmissions for DKA in addition to MSSA pericarditis. Pt lives in a two story home with multigenerational family members including his grandmother which whom he lives in the basement with, his mother, aunt, brother, and cousin. Pt has had limited access to transportation, intermittent monitoring of his glucose levels, and noncompliance with insulin administration. Pt has followed-up with Dr. Reyes after his previous visits with the most recent follow-up on 12/22 and is scheduled for an official establishment of care with Dr. Reyes on 03/23/23 at 1100. Pt is also scheduled to establish care with endocrinology BATCH RECORDS CLERK, Mandi at [facility] on 02/21/23 at 1330. Pt has also used [facility] thru his [employer] insurance for transportation to previous appointments. Contact information for [facility] has been provided to the pt and his grandmother on previous visits. Transportation arranged by VERONA FONTANEZ during prior admission to the appt w/BATCH RECORDS CLERK Mandi on 02/21 through [employer]. Ref #[id number], but was unable to arrange transportation to the appt w/Dr Reyes on 03/23, as it was too soon to schedule it. The above appts entered into pt's discharge plan at this time and to be printed off and provided to pt @ d/c. VERONA FONTANEZ to room. Pt resting in bed. Alert/oriented. Pt states he has all needed insulin and monitoring supplies and he states he has been compliant w/taking his insulin and checking his sugars. He states he has been using the Pt Link tablet to enter results in, but has not been able to be real consistent w/it, stating I'm not home half the time and I'm not able to take the tablet with me. He does not know what caused himself to become so ill and for his BS's to be so high on the date of admission, stating that he had checked his BS's that day and they were ranging 120's to 150's. He does state he has been out of his blood thinner for about 5 days and states his grandmother was supposed to call it in @ [employer] He is not sure if there are any refills on it. MS3 Margoth RHOADES CM, made aware. Pt verifies his grandmother still does not have a vehicle and unable to provide transportation to any appts. He states will continue to use [id number] to appts and states he still has the info provided to him last admission re: upcoming appts. Pt declines wanting HHC. He wishes to discharge home w/resumption of Pt Link Program. Crisis eval is pending. MS3 Margoth FONTANEZ, aware of above. Ena LEVINEN VERONA FONTANEZ
[2023-01-22] MEDS: Acetaminophen 500 MG Tablet 1000 MG PO (11:13)
[2023-01-22 12:05] LABS: Bedside Glucose 228 mg/dL (74-106)
--- NOTE | 2023-01-22 12:23 | CASEMGMT ---
Social Work MD Alvarez requesting MH evaluation for pt during morning rounds. SW faxed documentation to [facility] to request an evaluation. BRENT Duran
--- NOTE | 2023-01-22 12:25 | CASEMGMT ---
Addendum entered by Margoth Jeronimo 01/22/23 14:53: VERONA FONTANEZ into pt room to discuss discharge planning. Pt states that he sometimes forgets to take his insulin at the right times. He reports he wants to be healthy and live his life. Discussed HHC coming in. He states that his aunt will not allow it. He gave permission for this RN HUSEYIN to contact his aunt to discuss. He states he would be agreeable if his aunt is agreeable. He states he has supplies for his insulin as well as his CGM. Made pt aware that Jose Canales last filled his xarelto on Nov 11 for 30 days, he is adamant that he just ran out 5 days prior. He is aware that a refill was requested and there was no charge and discussed the importance of taking it. He is aware that a follow up appt was made for office on 02/02 at 9am, he gave permission for transportation to be set up. He is also aware that he can enter his patient link data at one time for the whole day. Spoke with Ruslan who also came in to discuss with patient. Discussed pt schooling history, he states he did not graduate as his grandma was taking care of his grandpa and he needed to work. He states he went to the [facility] [employer] catering program for 2 days. He states he missed the last week of school attendance [employer] and this made it where he could not graduate. He denies having any trouble learning and denies having an IEP (explained this). Pt states he does understand the severity of his illness. TC to pt aunt, went straight to . Left message requesting returned call and to leave info as to what a good time of day to reach her is. Will await returned call. Original Note: Spoke with Ruslan from Patient [employer], reviewed patient link entries. Pt would be able to enter all glucometer readings at the end of the day and not take ipad with him when he is not home. TC to [facility], spoke with Mimi, states that pt has refills on xarelto and that pt filled last on Nov.11 for a 30 day supply. Cost is $0. Requested refill. TC to office, spoke with floater operator and asked to move establishment of care appt up from May 12. She states that pt is an established pt already. Scheduled follow up appt for 02/02/23 at 9am. Will discuss above with patient and set up transportation if needed after crisis eval.
[2023-01-22 13:59] LABS: Pathologist Review Reviewed
[2023-01-22 15:18] LABS: Absolute Lymphocyte Count 1.31 X10^3/uL (0.83-4.51); Absolute Neutrophil Count 5.1 X10^3/uL (2.0-7.7); Basophil# 0.04 X10^3/uL; Basophil% 0.5 % (0-1); Eosinophil# 0.08 X10^3/uL; Eosinophils% 1.1 % (0-5); Hematocrit 31.6 % (40-54); Hemoglobin 10.6 g/dL (13.0-16.5); Lymphocyte # 1.31 X10^3/ul (0.83-4.51); Lymphocyte % 17.8 % (19-41); Mean Corp Hgb Conc 33.5 g/dL (32-36); Mean Corpuscular Hgb 25.9 pg (27.0-32.0); Mean Corpuscular Volume 77.3 fL (80-94); Mean Platelet Vol. 8.9 fl (6.2-12.0); Monocyte# 0.78 X10^3/uL; Monocyte% 10.6 % (0-10); NRBC Flagged by Analyzer 0 % (0-5); Neutrophil # 5.13 X10^3/uL (2.7-7.7); Neutrophil % 69.6 % (47-70); Platelet Count 331 K/mm3 (150-450); RBC Distribution Width CV 16.6 % (11.6-14.6); RBC Distribution Width SD 46.5 fl (35.1-43.9); Red Blood Count 4.09 M/mm3 (4.6-6.2); White Blood Count 7.4 K/mm3 (4.4-11.0)
[2023-01-22] MEDS: Rivaroxaban 20 MG Tablet PO (16:45)
[2023-01-22] MEDS: Insulin Lispro 100 UNIT/ML INSULN.PEN 10 UNIT SC (16:45)
[2023-01-22 17:05] LABS: Bedside Glucose 320 mg/dL (74-106)
--- NOTE | 2023-01-22 17:20 | CASEMGMT ---
Social Work - Validation of Advanced Directives Spoke with patient who reports to not have any advanced directives. Explored with patient who patient would to make decisions for the patient if patient is ever unable to make decision for himself. Patient stated my grandma. Educated patient that as it stands currently, patient's mother would be the decision maker. Inquired whether patient may want to explore further or complete paperwork, and patient non-committal about wanting more information at this time. Educated patient that social work can assist if patient decides would like more information to complete forms. -MILA Berry, HOME STAGER
--- NOTE | 2023-01-22 17:49 | CASEMGMT ---
Social Work Reason for consult: Resources, support, repeated hospitalizations, mental health Referral source: VERONA FONTANEZ Informant: Medical records, patient himself, and patient's mother Ines Carlton Presenting concerns: Patient has had repeated hospitalizations for DKA in 2022 (12/19/2022, and 12/30/2022, 01/10/2023, and 01/20/2023). Noted patient had 8 inpatient admissions in 2021 also for DKA. Noted concerns that patient is having difficulty with adherence to diabetic regimen, barriers to accessing home care services, and question about whether there is mental health and/or developmental disability presence. After this account underwriter introduced to self and role, also acknowledged awareness that many people have likely been asking patient similar questions and that staff are worried about the patient. Patient remembered RN CM being in the room earlier today to speak about concerns. Patient's able to recall that RN HUSEYIN is concerned that patient understands how much medication to take and whether patient has a full understanding of his medical needs. Marital status: 22-year-old single male (sexual orientation and gender identity was not addressed) Medical concerns: Patient reports has been diagnosed with diabetes since elementary school. Patient reports ability to remember to test his blood sugars but forgets to take the insulin in between testing and eating. Reports to move too fast so forgets to take the medicine. Reports within the last year or 2 was life flighted to [facility] for fluid around his heart with subsequent heart surgery. Patient also had issues in the past with wound care. Patient's mother reports that patient is supposed to take potassium and is having difficulty swallowing the potassium pills. Patient reports to have GERD. Patient reports to use a cane for ambulation. Living situation: Patient reports to live with his maternal grandmother Ines Carlton ([phone]), mother Ines Carlton ([phone]), maternal aunt Sobia Carlton, patient's brother Joshua carlton (13) and a cousin Krishan (18). The home is [facility]. Patient reports there are 2 bedrooms upstairs where Sobia and Krishan sleep, patient's mother and brother Joshua sleep on the main floor, MOB patient and patient's grandmother reside in the basement. Patient denies concerns with the living situation, denies any safety concerns in the home environment or by anybody in the home, and denies there are any concerns with utilities. Patient's mother reports there are 7 cats in the home. Transportation: Patient's aunt Sobia is the only person who has a car. Patient's grandmother has a route sales delivery driver's license and vehicle. Support system: Patient's grandmother is identified his primary support and secondary support the patient's mother. 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 Patient reports attended the [employer] center for 2 days and dropped out because he did not like it. Patient's mother reports that patient actually dropped out of school in the 11th grade in part due to the grandfather, needing to work, but also due to being bullied at school. Patient nor patient's mother deny patient ever being diagnosed with a specific learning disability, developmental disability, or a spectrum disorder such as autism/Asperger's. Patient, after some discussion reported he may have had an IEP for math in high school. Employment history: Reports has worked at [employer] in the past but this employment ceased due to patient having medical issues including an infected spider bite leading to a wound VAC, which was not sanitary making service industry. Patient reports last employment was at [employer] in [place], but was unable to keep this job beyond 2 months due to inability to maneuver the stairs multiple times a day. Patient denies ever being on disability or SSI. Financial support from the home includes the patient's cancer he works 2 jobs ([employer] and [employer]), patient's grandmother and patient's mother who both work at [employer] as well. Mental health: Patient denies ever being diagnosed with any mental health disorder including depression, anxiety, bipolar, schizophrenia, personality disorder or any developmental disability including an autism spectrum disorder. Patient denies any history of suicidal ideation, planning, intent or attempts. Also denies homicidal ideation. PHQ-9 depression screen completed with a score of 10 showing in the moderate range of depression. Upon reviewing the screening, patient agreed that he does have some depression, though just has never officially been diagnosed. Note, patient did have an intake appointment at the counseling center in August 03 but never made it to that appointment. Patient recalled during this social work intervention that appointment, but could not really give a reason why he never went. Family history: Patient's brother has ADHD, and patient reports believe the 18-year-old cousin may have something like bipolar or schizophrenia but cannot be certain. Substance use: Patient denies any illicit substance use including marijuana. Reports to drink socially, only on special occasions such as birthdays and holidays. Denies tobacco use. Abuse issues: Patient denies any history of physical, sexual, emotional abuse. While patient denies any history of abuse, the patient does describe that the aunt will often yell at family if the family disagrees with her. The aunt is described as a hindrance in accessing care in the home, as the aunt reportedly does not like people coming around the home. Patient's mother confirms what patient has described, reporting that aunt does not even like emergency squad to come into the home. Patient's 13-year-old brother is not allowed to have friends of the house either. Coping skills: Patient reports to enjoy coloring and art work. Enjoys being outside when it is nice out and taking walks down the street. Patient also plays video games. Triggers/stressors: Patient reports would like to be able to get outside and do things and even work. Admits it is hard not being able to do things that he likes. Reports to have difficulty remembering what times to take his medication and that sleep is sometimes a factor in this. Risk to self/others: Patient denies any history of suicidal ideation, planning, intents or attempts. Also denies HI history. No reported history by the patient of any violence. Patient's mother states that one time in school, after being bullied the patient took a jar of hot peppers and convinced the kids who were bullying the patient that the peppers were not hot. Those kids ate the peppers and got sick so then patient was kicked out of school for a week because of this incident. No other violence/aggression history reported. Patient's mother reported that the patient's, it was those kids never bothered me again. Mental status: Patient oriented to person, place, year, month, day, and with prompting recall to the hand counter was. Appearance/General behavior: Patient was clean though he was slightly disheveled. Sitting calmly in bed and directable. Eye contact fair to avoidant. Mood/affect: Depressed mood, blunted affect. Appeared slightly teary-eyed during parts of conversation. Communication pattern/thought process: Patient responded to questions, was logical and responses, and no evidence of any internal stimuli or hallucinations. General intellectual functioning: Average Judgment: Fair to poor Insight: Fair Impression: Patient was responsive to this account underwriter, engaging in conversation, polite. Patient able to acknowledge that his medical condition is serious. Able to tell this account underwriter that has been told if medical concerns, specifically the diabetes, are not taken care of patient could lose sight, and use of his legs and arms. This account underwriter gently processed what the most severe consequence of medical nonadherence would be and with some have a hesitancy patient able to acknowledge . Patient reports that he wants to live and likes living. Patient acknowledged that sometimes it is hard to always follow the program but does want to do so. Patient reports to have medical monitoring system and wants to adhere to this, but reports to find it cumbersome to carry the large iPad around and input blood sugars all of the time. Patient also reports the biggest thing he feels he needs help with is remembering what time to take the medicine. Reports sleeping into the late morning hours also affects keeping up with the medication adherence. Patient reported would be willing to have any type of service, but living with the aunt hinders accessing care in the home. In the conversation with both patient and patient's mother, neither seems to feel empowered to speak up to the aunt about how severe patient's medical concerns are. This account underwriter offered to have a conversation with the aunt, and the patient's mother did not think this would make a difference. It appears that the family is all pulling together to make ends meet with finances, so moving may not be realistic at present time. Patient denies fearing his home environment, denies concerns with utilities, reports there is always enough food to eat. Patient's mother reports that when there are treats such as regular pop in the home, patient will go and drink that knowing that he should not. Patient's mother appeared receptive to this account underwriter's conversation, and expressed appropriate concerns for the patient as well as wanting to help the patient. For instance patient's mother reports she often calls the patient's younger brother to remind the brother to take his medication, and reports I might have to start doing this for the patient as well. The mother has not been doing this because the patient is an adult. The patient's mother inquired after supportive services the patient might be able to get engaged in, and reportedly would be willing to pay for taxi passes if it meant patient could have some outside socialization. Emotional support provided to both patient and patient's mother this date. Patient does not appear at this point to need a referral to the Board of developmental disabilities, but would benefit from engagement for mental health services. Plan: 1. Referral to the counseling center for counseling and case management (this is where patient's brother goes and patient would like to see the same counselor if possible). 2. Gather information on community action transportation assistance programs and also [employer] drop-in center where patient may be able to engage and gather with other people who have emotional health issues for support and recovery. 3. Speak with VERONA FONTANEZ as to if there are other options for potassium pills, as these large pills are apparently difficult for the patient to swallow. Patient's mother reports that there were small pills, even if it means taking many pills, this would be better than patient not taking the medication at all. Collaborate with VERONA FONTANEZ about conversation with the patient's aunt and see if the aunt can be engaged to allowing services in the home. -WOOD Berry, MORTGAGE OPERATIONS MANAGER *This note was generated with [employer] software. It may contain incorrect words, spelling, and punctuation that were not noted in review of the chart prior to signing*
[2023-01-22] MEDS: 0.9% Saline Lock 10 ML Syringe IV ×2 (21:38→21:39)
[2023-01-22] MEDS: Glucerna Shake 120 ML LIQUID PO (21:42)
[2023-01-22] MEDS: Insulin Glargine-YFGN 100 UNIT/ML Pen 25 UNIT SC (21:43)
[2023-01-22 22:35] LABS: Bedside Glucose 221 mg/dL (74-106)
[2023-01-23] MEDS: Acetaminophen 500 MG Tablet 1000 MG PO (00:59)
[2023-01-23 02:29] VITALS: BP 99/67; PULSE 95; RESP 16; TEMP 37.2; O2SAT 100
[2023-01-23 02:51] LABS: Bedside Glucose 204 mg/dL (74-106)
[2023-01-23 05:01] LABS: Bedside Glucose 217 mg/dL (74-106)
[2023-01-23 06:00] VITALS: BMI 21.1
[2023-01-23 06:45] LABS: Absolute Lymphocyte Count 1.53 X10^3/uL (0.83-4.51); Absolute Neutrophil Count 3.3 X10^3/uL (2.0-7.7); Basophil# 0.04 X10^3/uL; Basophil% 0.7 % (0-1); Eosinophil# 0.09 X10^3/uL; Eosinophils% 1.7 % (0-5); Hematocrit 31.6 % (40-54); Hemoglobin 10.3 g/dL (13.0-16.5); Lymphocyte # 1.53 X10^3/ul (0.83-4.51); Lymphocyte % 28.2 % (19-41); Mean Corp Hgb Conc 32.6 g/dL (32-36); Mean Corpuscular Hgb 25.5 pg (27.0-32.0); Mean Corpuscular Volume 78.2 fL (80-94); Mean Platelet Vol. 8.5 fl (6.2-12.0); Monocyte# 0.47 X10^3/uL; Monocyte% 8.7 % (0-10); NRBC Flagged by Analyzer 0 % (0-5); Neutrophil # 3.28 X10^3/uL (2.7-7.7); Neutrophil % 60.3 % (47-70); Platelet Count 313 K/mm3 (150-450); RBC Distribution Width CV 16.3 % (11.6-14.6); RBC Distribution Width SD 46.6 fl (35.1-43.9); Red Blood Count 4.04 M/mm3 (4.6-6.2); White Blood Count 5.4 K/mm3 (4.4-11.0)
[2023-01-23 07:11] LABS: Anion Gap 9 (5-15); BUN 9 mg/dL (7-18); Calcium,Total 8.3 mg/dL (8.5-10.1); Chloride 110 mmol/L (98-107); Creatinine, Serum 0.64 mg/dL (0.70-1.30); EST Glomerular Filtration Rate 166 mL/min (>60); Est Glom Filt Rate - Afr Amer 200 mL/min (>60); Estimated Creatinine Clearance 191.03 ml/min; Glucose 196 mg/dL (74-106); Magnesium 1.8 mg/dL (1.6-2.6); Potassium 2.9 mmol/L (3.5-5.1); Sodium Level 139 mmol/L (136-145)
[2023-01-23 08:08] VITALS: BP 101/60; PULSE 101; RESP 16; TEMP 37; O2SAT 99
[2023-01-23 08:36] LABS: Bedside Glucose 159 mg/dL (74-106)
[2023-01-23] MEDS: 0.9% Saline Lock 10 ML Syringe IV (09:34)
[2023-01-23] MEDS: Potassium Chloride Oral Tablet 20 MEQ 60 MEQ PO (09:36)
[2023-01-23] MEDS: Insulin Lispro 100 UNIT/ML INSULN.PEN SC ×2 (09:38→12:14)
[2023-01-23] MEDS: Insulin Glargine-YFGN 100 UNIT/ML Pen 30 UNIT SC (09:39)
[2023-01-23] MEDS: Insulin Lispro 100 UNIT/ML INSULN.PEN 10 UNIT SC ×2 (09:46→12:15)
--- NOTE | 2023-01-23 11:24 | CASEMGMT ---
Addendum entered by Margoth Jeronimo 01/23/23 16:04: VERONA FONTANEZ made aware at 1555 that pt's grandma has not brought his clothes so he cannot be at main entrance for hospital van. VERONA FONTANEZ into pt room, pt states his grandma is bringing him clothes, asked if he could be taken home by her then. He states possibly. Made him aware that this VERONA FONTANEZ will need to cancel the van as 4pm is the latest the van runs. TC to [facility], transportation home cancelled. Addendum entered by Margoth Jeronimo 01/23/23 13:25: Received tc from Jelena that an appt was set up for the [facility] on 02/01 with arrival of 10:30am. TC to [facility], scheduled transportation with 1 passenger. Trip#[id number]. Added to dc plan. Addendum entered by Margoth Jeronimo 01/23/23 11:59: Pt nurse updated on time to be at main entrance. 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 Pt states his grandma will curing pickling packer his meds. He attempted to reach her from the room without success. He asks for the hospital van to take him home. TC to [facility], transportation set up at 4pm. Pt denies further needs at this time. Original Note: Spoke with hospitalist regarding pt inability to swallow his potassium pills. She will order liquid. TC to [facility], set up trip for upcoming appt on February 02. Trip #[id number]. Added to dc plan. TC to pharmacy to request pharmacist to discuss pt insulin and timing as this is presented as a barrier by the patient. No call back from pt aunt. TC to her again, received vm. TC to office, spoke with nurse Yael, gave her an update on this hospitalization and plans for the pt. She states pt has not established care. Confirmed appts and she states the appt on 03/23 was cancelled. Made her aware this appt needs to be put back on. She was able to add an [facility] of care appt for March 23 at 9:20am. Updated dc instructions with time change of appt.
[2023-01-23 12:26] LABS: Bedside Glucose 153 mg/dL (74-106)
--- NOTE | 2023-01-23 12:26 | PCM.DC.SUM ---
Providers Date of Admission: 01/20/23 Date of Discharge: 01/23/23 Primary Care Physician: Dr. Mario Reyes MD Consultations 01/20/23 15:14 Consult: Docking Pilot / Pulmonary Medicine Routine Consulting Provider: Pulmonary Medicine k[facility] [place] Reason for Consult: DKA With unresponsive, severe Met acidosis EMERGENT Consult: No MD Notified: Yes Date Notified: 01/20/23 Time Notified: 14:15 Method of Notification: Text Reason For Visit: DKA Diagnosis Discharge Diagnosis (1) DKA (diabetic ketoacidosis): Status: Acute Code(s): E11.10 - Type 2 diabetes mellitus with ketoacidosis without coma (2) Noncompliance with diabetes treatment: Status: Acute Code(s): Z91.199 - Patient's noncompliance with other medical treatment and regimen due to unspecified reason (3) Acute encephalopathy: Status: Acute Code(s): G93.40 - Encephalopathy, unspecified (4) Hypokalemia: Status: Acute Code(s): E87.6 - Hypokalemia (5) Hypernatremia: Status: Acute Code(s): E87.0 - Hyperosmolality and hypernatremia (6) Leukocytosis: Status: Acute Code(s): D72.829 - Elevated white blood cell count, unspecified (7) Severe malnutrition: Status: Acute Code(s): E43 - Unspecified severe protein-calorie malnutrition Medications at Discharge Home Medications blood sugar diagnostic (OneTouch Verio test strips) #200 ea 09/08/21 pen needle, diabetic 32 gauge x 5/32 (BD Ultra-Fine Lorin Pen Needle) #360 ea 09/08/21 flash glucose sensor (FreeStyle Niru 14 Day Sensor kit) #2 ea 10/11/21 insulin lispro 100 unit/mL subcutaneous pen (Humalog KwikPen (U-100) Insulin) 17 unit subcut TIDAC DIABETES 07/24/22 insulin lispro 100 unit/mL subcutaneous pen (Humalog KwikPen (U-100) Insulin) See Protocol subcut ACHS DM 07/24/22 acetaminophen 325 mg tablet (Tylenol) 325 mg PO Q6H PRN Pain 01/10/23 lactase 3,000 unit tablet (Lactaid) 3,000 unit PO TIDCM LACTOSE INTOLLERANCE 01/10/23 omeprazole 20 mg tablet,delayed release 20 mg PO DAILY PRN Acid Reflux 01/10/23 insulin glargine 100 unit/mL (3 mL) subcutaneous pen (Lantus Solostar U-100 Insulin) 35 unit (0.35 mL) subcut BID DIABETES #15 mL 01/13/23 potassium chloride 20 mEq/15 mL oral liquid 20 meq (15 mL) PO BID #1,200 mL 01/23/23 rivaroxaban 20 mg tablet (Xarelto) 20 mg PO DAILY BLOOD THINNER #30 tabs 01/23/23 Hospital Course Operations None Procedures EKG and - (Chest x-ray) Summary of Care Provided Minutes Spent on Discharge: 38 Hospital Course: Mr. Carlton is a 22-year-old male who frequently is admitted to hospital in DKA who was brought to the emergency department on 01/20/2023 unresponsive.? He was found in the basement floor lethargic and breathing rapidly.? He was only responsive to the shaking by EMS but had no verbal response at that time.? Patient was hemodynamically stable at the time of presentation but he did have significant tachypnea with a respiratory rate of 36 and he was found to have an anion gap metabolic acidosis and to be in DKA with a pH of 6.60 on his VBG at that time of presentation.? He was admitted to the ICU with DKA protocol and his DKA did resolve quite rapidly.? He was able to be transitioned to subcu insulin on 01/21/2023.? Mental status has resolved to baseline.? This is his fourth DKA admission this year.? He states he has supplies at home yet he continues to come in in DKA.? He also indicated that his potassium pills are very difficult for him to take so we did transition him to liquid potassium for supplementation at home and a prescription for this was sent prior to discharge. He does follow with outpatient endocrinology and benign and states he has appointment with them next month. I strongly encouraged keeping this appointment at the time of discharge since he is having frequent DKA admissions. We did have him evaluated by case management as crisis would not evaluate him because they did not think he was any imminent danger. Multiple resources were given to him with regards to counseling and outpatient services prior to discharge and the case was discussed with his mother who seem to be on board prior to going him going home. He had some significant electrolyte abnormalities that were replaced prior to discharge both with IV and oral potassium. I do recommend he follow-up with his primary care physician within the next week and be reevaluated with a BMP at that time if possible. Again, I did encourage him to follow-up with his outpatient patient care secretary as he states he has an appointment scheduled next month. We strongly encouraged ongoing compliance with his insulin regimen as his blood sugars were fairly well controlled while he was hospitalized. I did write a prescription for his Xarelto that it sounds like he had not been taking this at home based on previous prescription record he was able to be discharged home in stable condition on 01/23/2023. 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 bedside starting an IV for his phosphorus replacement, appears comfortable, nontoxic, appears malnourished General Appearance: cooperative, comfortable, well kempt and well developed Orientation / Consciousness: awake, oriented to person, oriented to place and oriented to time Exam Limitations: no limitations Nutritional Appearance: thin HEENT normocephalic, head/scalp atraumatic, hearing grossly normal bilaterally and moist oral mucous membranes HEENT Narrative: Dentition is fair, Mallampati is 1, no thrush Eyes PERRL, EOMs intact bilaterally and conjunctivae normal Eyes Narrative: No scleral icterus Neck no lymphadenopathy and supple Neck Narrative: Trachea midline, no thyroid enlargement Resp normal respiratory effort, no retractions, no use of accessory muscles and clear to auscultation bilaterally Auscultation: Negative for rales, rhonchi or wheezes Cardio regular rate, regular rhythm, S1 normal heart sound, S2 normal heart sound, no murmurs, no rub, no gallops and no clicks GI normal to inspection, nondistended, normoactive bowel sounds, soft to palpation and non-tender Extremity no clubbing, cyanosis or edema Extremity Narrative: Decreased lean muscle mass, 2+ pedal pulses Skin no rashes or lesions noted, no wounds, skin turgor normal and no jaundice Neuro oriented x3, CN's II-XII intact bilaterally, moves all extremities and no focal motor deficits Speech: speech normal Psych Psych Narrative: Affect is flat, mood seems depressed, eye contact is poor but a little bit better today than yesterday Medical Records Data Medical Nutrition Assessment Dietitian: Malnutrition Criteria Met Start: 01/21/23 09:26 Freq: Status: Active Protocol: Document 01/21/23 09:26 (Rec: 01/21/23 09:26 [id number]) Nutrition Malnutrition Evidence of Malnutrition Exists Yes Malnutrition (moderate): Chronic Evidenced By Suboptimal Energy Intake ( Moderate),Physical Changes ( Mild) Clinical Problem Chronic Disease or Condition Related Malnutrition Etiology moderate, chronic malnutrition related to poor DM management , inadequate oral intake Signs/Symptoms as evidenced by estimated PO intake meeting <75% of estimated energy needs > 3 months; Mild muscle wasting/ fat loss evident per physical exam in orbital, clavicle, acromion, and temporal areas. Status Active Problem Recommendation Dietitian Recommendations/Changes recommend advance diet as tolerated to 2200 calorie controlled/consistent CHO; glucerna 120mL 4x/day w/ medpass when PO diet advanced Weight / BMI Weight Weight: 74.6 kg Body Mass Index (BMI) 21.1 ABG / Lab / Microbiology Data Result Diagrams: 01/23/23 06:33 01/23/23 06:33 Laboratory: Laboratory Results - last 24 hr 01/20/23 12:30: Diff Path Review Reviewed 01/22/23 13:09: WBC 7.4, RBC 4.09 L, Hgb 10.6 L, Hct 31.6 L, MCV 77.3 L, MCH 25.9 L, MCHC 33.5, RDW Std Deviation 46.5 H, RDW Coeff of Rabia 16.6 H, Plt Count 331, MPV 8.9, Immature Gran % (Auto) 0.400, Neut % (Auto) 69.6, Lymph % (Auto) 17.8 L, Tucker % (Auto) 10.6 H, Eos % (Auto) 1.1, Baso % (Auto) 0.5, Absolute Neuts (auto) 5.1, Absolute Lymphs (auto) 1.31, Nucleated RBC % 0 01/22/23 16:43: POC Glucose 320 H 01/22/23 21:36: POC Glucose 221 H 01/23/23 02:31: POC Glucose 204 H 01/23/23 04:39: POC Glucose 217 H 01/23/23 06:33: Sodium 139, Potassium 2.9 L, Chloride 110 H, Carbon Dioxide 20.0 L, Anion Gap 9, BUN 9, Creatinine 0.64 L, Estim Creat Clear Calc 191.03, Est GFR (MDRD) Af Amer 200, Est GFR (MDRD) Non-Af 166, BUN/Creatinine Ratio 14.0, Glucose 196 H, Calcium 8.3 L, Magnesium 1.8 01/23/23 06:33: WBC 5.4, RBC 4.04 L, Hgb 10.3 L, Hct 31.6 L, MCV 78.2 L, MCH 25.5 L, MCHC 32.6, RDW Std Deviation 46.6 H, RDW Coeff of Rabia 16.3 H, Plt Count 313, MPV 8.5, Immature Gran % (Auto) 0.400, Neut % (Auto) 60.3, Lymph % (Auto) 28.2, Tucker % (Auto) 8.7, Eos % (Auto) 1.7, Baso % (Auto) 0.7, Absolute Neuts (auto) 3.3, Absolute Lymphs (auto) 1.53, Nucleated RBC % 0 01/23/23 06:33: Phosphorus 2.0 L 01/23/23 08:04: POC Glucose 159 H Microbiology: Microbiology 01/21/23 08:50 Blood Culture (Wb) - Right Hand Blood Culture - Preliminary No growth in 48 hours. 01/21/23 08:35 Blood Culture (Wb) - Venous Blood Culture - Preliminary No growth in 48 hours. 01/21/23 10:20 Nasal Secretion SARS-CoV-2 & FLU Antigen (Rapid) - Final D/C Instructions Discharge Diet: 2200 Calorie Control Diet Discharge Activity: Return to Normal Activity Return to work on: 01/24/23 Meaningful Use Info Meaningful Use Diagnoses (Choose all that apply): None applicable Discharge Plan Admission Admit Date/Time: 01/20/23 13:27 Primary Reason for Your Visit: Unresponsiveness/DKA Attending Provider: Elizabeth Alvarez Primary Care Provider: Mario Reyes Consulting Providers: Tha Uribe ; Tanmay Ferrell ; Pb Momin ; Antonio Aleman ; Cem Valentin ; Judie Jay [employer] Instructions Additional Instructions / Restrictions: 1. Please follow-up with your patient care secretary in [place] as scheduled 2. Please obtain a basic metabolic profile from your primary care physician to be done within the next week to recheck your potassium Discharge Orders/Prescriptions Prescriptions: New potassium chloride 20 mEq/15 mL liquid 20 meq PO BID Qty: 1200 0RF Continued (DME) OneTouch Verio test strips Strip See Rx Instructions .ROUTE .MEDSUPPLY Qty: 200 6RF Rx Instructions: 4x/day (DME) pen needle, diabetic [BD Ultra-Fine Lorin Pen Needle] 32 gauge x 5/32 needle See Rx Instructions .ROUTE .MEDSUPPLY Qty: 360 6RF Rx Instructions: As directed (DME) FreeStyle Niru 14 Day Sensor Kit See Rx Instructions .ROUTE .MEDSUPPLY Qty: 2 5RF Rx Instructions: As directed insulin lispro [Humalog KwikPen Insulin] 100 unit/mL insulin pen See Protocol subcut ACHS Protocol: 1. Sliding Scale Insulin Low Dosing Condition: 150-224 mg/dl = 1 unit Condition: 225-299 mg/dl = 2 units Condition: 300-374 mg/dl = 3 units Condition: 375-499 mg/dl = 4 units Condition: Greater than 449 call physician Protocol Text: - Use for Total Daily Dose of Insulin 15-27 units - Thin, elderly, renal patients LOW DOSING ALGORITHM insulin lispro [Humalog KwikPen Insulin] 100 unit/mL insulin pen 17 unit subcut TIDAC acetaminophen [Tylenol] 325 mg Tablet 325 mg PO Q6H PRN (Reason: Pain) omeprazole 20 mg Tablet,Delayed Release (Dr/Ec) 20 mg PO DAILY PRN (Reason: Acid Reflux) lactase [Lactaid] 3,000 unit Tablet 3,000 unit PO TIDCM insulin glargine [Lantus Solostar U-100 Insulin] 100 unit/mL (3 mL) insulin pen 35 unit SUBCUT BID Qty: 15 0RF Xarelto 20 mg Tablet 20 mg PO DAILY Qty: 30 1RF Discontinued potassium chloride [Klor-Con M20] 20 mEq tablet,ER particles/crystals 20 meq PO BID Referrals / Follow Up: Mario Reyes MD [Primary Care Provider] - 03/23/23 9:20 am Elise Raymond [employer], [employer] [Non-Staff] - 02/21/23 1:30 pm (@ [facility] Transportation has been arranged through [address] ) Disposition Disposition (needs filled in before D/C Order can be placed): Home, Self Care Charges/Coding Visit Charges Inpatient E&M: 22830 Disch Hosp >30min
[2023-01-23 13:50] VITALS: BP 110/85; PULSE 110; RESP 18; TEMP 36.9; O2SAT 100
--- NOTE | 2023-01-23 15:03 | PHA.DC.MC ---
Pharmacy Service has performed discharge medication reconciliation and counseling for this patient. Spoke to patient regarding importance of taking Xarelto as scheduled to prevent the risk of recurrent PE/DVT. Also talked to him regarding his insulin timing and doses. He says he takes his Lantus once daily (35 units) because if he takes 2 doses it drops his sugars way too low. Based on his hemoglobin A1c of 10% last month it appears that his sugars would benefit from a second dose as written as long as the blood sugar prior to the dose is not below 100mg/dL. Also mentioned that he can take his morning dose after he wakes up around 10 AM and his second dose prior to bedtime. He claims he is taking his Humalog as written 17units TIDAC with a sliding scale. While looking at his fill history, last fill I saw for Lantus and Humalog were in October but he claims he has several pens at home and does not need any more which is concerning as to whether or not he has not been taking his insulin at all if he still has so many pens. Patient was concerned he did not have any more refills on his Freestyle sensors so this [facility] spoke to RN CM. RN CM will call [facility] and see if he has refills. 1. POTASSIUM CHLORIDE 20MEQ (15 ML) PO BID The patient's discharge medication list was reviewed for discrepancies and discrepancies were resolved. Home Medications blood sugar diagnostic (OneTouch Verio test strips) #200 ea 09/08/21 pen needle, diabetic 32 gauge x 5/32 (BD Ultra-Fine Lorin Pen Needle) #360 ea 09/08/21 flash glucose sensor (FreeStyle Niru 14 Day Sensor kit) #2 ea 10/11/21 insulin lispro 100 unit/mL subcutaneous pen (Humalog KwikPen (U-100) Insulin) 17 unit subcut TIDAC DIABETES 07/24/22 insulin lispro 100 unit/mL subcutaneous pen (Humalog KwikPen (U-100) Insulin) See Protocol subcut ACHS DM 07/24/22 acetaminophen 325 mg tablet (Tylenol) 325 mg PO Q6H PRN Pain 01/10/23 lactase 3,000 unit tablet (Lactaid) 3,000 unit PO TIDCM LACTOSE INTOLLERANCE 01/10/23 omeprazole 20 mg tablet,delayed release 20 mg PO DAILY PRN Acid Reflux 01/10/23 insulin glargine 100 unit/mL (3 mL) subcutaneous pen (Lantus Solostar U-100 Insulin) 35 unit (0.35 mL) subcut BID DIABETES #15 mL 01/13/23 potassium chloride 20 mEq/15 mL oral liquid 20 meq (15 mL) PO BID #1,200 mL 01/23/23 rivaroxaban 20 mg tablet (Xarelto) 20 mg PO DAILY BLOOD THINNER #30 tabs 01/23/23 The patient was counseled on the following discharge medications and changes in medications for homegoing were reviewed. The Reason for Use, instructions for use, and potential side effects were reviewed for all new medications. The patient's questions regarding all of their medications were answered. The patient was able to verbally demonstrate an understanding of their discharge medications.
== END 2023-01-23 16:30 | disposition home or self-care (01) | DRG 420 ==
LOC: ED 13:28 → ICU 13:50 → MS3 01-22 08:57
PROVIDERS: Admitting Provider Internal Medicine; Emergency Provider Emergency Medicine; PCP Internal Medicine; Visit Provider Internal Medicine
DX: E10.10 Type 1 diabetes mellitus with ketoacidosis without coma (principal); G93.41 Metabolic encephalopathy; E43 Unspecified severe protein-calorie malnutrition; E87.0 Hyperosmolality and hypernatremia; Z79.4 Long term (current) use of insulin; E87.6 Hypokalemia; E83.39 Other disorders of phosphorus metabolism; D72.829 Elevated white blood cell count, unspecified; Z68.21 Body mass index [BMI] 21.0-21.9, adult; Z79.01 Long term (current) use of anticoagulants; Z91.14 Patient's other noncompliance with medication regimen; Z91.199 Patient's noncompliance with other medical treatment and regimen due to unspecified reason; Z86.79 Personal history of other diseases of the circulatory system; Z86.711 Personal history of pulmonary embolism; Z86.718 Personal history of other venous thrombosis and embolism
CPT/HCPCS: 36415; 71045; 80048; 80076; 81001; 82009; 82803; 82962; 83735; 83930; 84100; 85025; 87040; 87086; 87088; 87428; 93005; 97802; 99285; J7030; J7040; J7050; A4216; J2405; J7799

== ENCOUNTER 2023-02-27 19:21 | Inpatient (IN) | payer MEDICAID, SELFPAY ==
[2023-02-27 19:22] VITALS: BP 119/77; PULSE 132; RESP 18; TEMP 36.8; O2SAT 100
[2023-02-27] MEDS: 0.9% Normal Saline 1,000 ML 999 ML IV ×2 (21:07→22:00)
[2023-02-27 21:11] LABS: Absolute Lymphocyte Count 1.47 X10^3/uL (0.83-4.51); Absolute Neutrophil Count 10.4 X10^3/uL (2.0-7.7); Basophil# 0.09 X10^3/uL; Basophil% 0.7 % (0-1); Eosinophil# 0.03 X10^3/uL; Eosinophils% 0.2 % (0-5); Hematocrit 44.9 % (40-54); Hemoglobin 13.6 g/dL (13.0-16.5); Lymphocyte # 1.47 X10^3/ul (0.83-4.51); Lymphocyte % 11.6 % (19-41); Mean Corp Hgb Conc 30.3 g/dL (32-36); Mean Corpuscular Hgb 22.9 pg (27.0-32.0); Mean Corpuscular Volume 75.7 fL (80-94); Mean Platelet Vol. 9.3 fl (6.2-12.0); Monocyte# 0.68 X10^3/uL; Monocyte% 5.4 % (0-10); NRBC Flagged by Analyzer 0 % (0-5); Neutrophil # 10.35 X10^3/uL (2.7-7.7); Neutrophil % 81.4 % (47-70); Platelet Count 481 K/mm3 (150-450); RBC Distribution Width CV 15.6 % (11.6-14.6); RBC Distribution Width SD 41.3 fl (35.1-43.9); Red Blood Count 5.93 M/mm3 (4.6-6.2); White Blood Count 12.7 K/mm3 (4.4-11.0)
[2023-02-27 21:36] LABS: Anion Gap 22 (5-15); BUN 19 mg/dL (7-18); Calcium,Total 9.7 mg/dL (8.5-10.1); Chloride 96 mmol/L (98-107); Creatinine, Serum 1.36 mg/dL (0.70-1.30); EST Glomerular Filtration Rate 70 mL/min (>60); Est Glom Filt Rate - Afr Amer 84 mL/min (>60); Glucose 537 mg/dL (74-106); Potassium 4.6 mmol/L (3.5-5.1); Sodium Level 126 mmol/L (136-145)
--- NOTE | 2023-02-27 21:39 | EKG12_ITS ---
Test Reason : NAUSEA/VOMITING Blood Pressure : / mmHG Vent. Rate : 120 BPM Atrial Rate : 120 BPM P-R Int : 128 ms QRS Dur : 086 ms QT Int : 326 ms P-R-T Axes : 063 086 054 degrees QTc Int : 460 ms Sinus tachycardia Otherwise normal ECG Confirmed by YANE CASTILLO, ROXANNE ([id number]), advertising editor AYESHA VALLE ([id number]) on 03/05/2023 9:56:12 AM Referred By: CHRISTINA Confirmed By:ROXANNE CHE MD
[2023-02-27 21:48] VITALS: BMI 23.8
--- NOTE | 2023-02-27 21:57 | PCM.HP.STD ---
HPI - General General Date of Admission: 02/27/23 Date of Service: 02/27/23 Chief Complaint: Hyperglycemia, N/V/abd pain, dyspnea. HPI Narrative The patient is a 22 y/o M w/ PMHx: Hx VTE (DVT, PE on xarelto), Uncontrolled Diabetes mellitus type I with frequent DKA presentations noncomplaint with his insulin and diet, Chronic severe protein calorie malnutrition, Hx 2021 pericarditis/pericardial infection (Treated at [facility], MSSA infection treated with abx therapy), Known stage II L buttock pressure, recently admitted 01/20/23-01/23/23 following admission for DKA who now re-presents to the [facility] ED on 02/27/23 with recurrent issues with hyperglycemia although unclear if he was at last discharge having issues with low BS with longacting insulin decrease following PCP follow-up with onset on day of presentation sudden severe hyperglycemia with BS > 400, mild dyspnea, generalized abdominal discomfort/cramping with nausea and emesis without fever, chills, URI symptoms, dysuria or diarrhea prompting family to bring him in early given concerns for recurrent DKA. In the ED work-up included T98.3, heart rate 132, BP 119/77, respiratory rate 18, 100% on room air, CBC with WBC 12.7, hemoglobin 13.6, platelet 41 with left shift, VBG with pH 7.04, PO2 49, bicarb 5, O2 saturation 67% performed on room air, BMP with sodium 126, chloride 96, carbon oxide 8, BUN/creatinine 19/1.36, anion gap 22, glucose 537, acetone moderate level. In the ED patient initiated on 2 L normal saline IV fluid bolus with ED physician request for patient admission to the hospital service with planned initiation of insulin drip at that time. [facility] Medical History Asthma Diabetes mellitus type 1 femur surgery GERD (gastroesophageal reflux disease) Hypokalemia Hypokalemia Kidney disease Lower extremity edema Nausea and vomiting Non-smoker Noncompliance Nonhealing surgical wound Psychosocial problem Severe protein-calorie malnutrition Sinus tachycardia seen on quality assurance monitor Ulcer of leg, chronic Wound of left lower extremity Home Medications insulin lispro 100 unit/mL subcutaneous pen (Humalog KwikPen (U-100) Insulin) 17 unit subcut TIDAC DIABETES 07/24/22 [History Last Taken Unknown] insulin lispro 100 unit/mL subcutaneous pen (Humalog KwikPen (U-100) Insulin) See Protocol subcut ACHS DM 07/24/22 [History Last Taken Unknown] acetaminophen 325 mg tablet (Tylenol) 325 mg PO Q6H PRN Pain 01/10/23 [History Last Taken 01/09/23] lactase 3,000 unit tablet (Lactaid) 3,000 unit PO TIDCM LACTOSE INTOLLERANCE 01/10/23 [History Last Taken Unknown] omeprazole 20 mg tablet,delayed release 20 mg PO DAILY PRN Acid Reflux 01/10/23 [History Last Taken 2 Days Ago ~01/08/23] potassium chloride 20 mEq/15 mL oral liquid 20 meq (15 mL) PO BID #1,200 mL 01/23/23 [Rx Last Taken Unknown] rivaroxaban 20 mg tablet (Xarelto) 20 mg PO DAILY BLOOD THINNER #30 tabs 01/23/23 [Rx Last Taken Unknown] blood sugar diagnostic (WePowuch Verio test strips) 02/27/23 [History Last Taken Unknown] flash glucose sensor (FreeStyle Niru 14 Day Sensor kit) 02/27/23 [History Last Taken Unknown] insulin glargine 100 unit/mL (3 mL) subcutaneous pen (Lantus Solostar U-100 Insulin) 30 unit subcut BID DIABETES 02/27/23 [History Last Taken Unknown] pen needle, diabetic 32 gauge x 5/32 (BD Ultra-Fine Lorin Pen Needle) 02/27/23 [History Last Taken Unknown] Allergy/AdvReac Type Severity Reaction Status Date / Time Milk Containing Products AdvReac Diarrhea Verified 02/27/23 19:22 Family History Father Polysubstance overdose Patient father young secondary to OD. Mother Iron deficiency anemia Other Asthma CVA (cerebral vascular accident) Diabetes Hypertension Thyroid disorder Surgical History H/O right knee surgery History of surgery on extremity Hx of knee surgery Social History housing: other details: Lives with his grandmother, aunt and mother. Smoking Status: Never smoker alcohol intake: current alcohol intake frequency: a few times a month substance use type: does not use ROS ROS Narrative Admission Review of Systems: CONSTITUTIONAL: No weight loss, fever, chills, + weakness or fatigue. HEENT: + Extremely poor dentition. Eyes: No visual loss, blurred vision, double vision or yellow sclerae. Ears, Nose, Throat: No hearing loss, sneezing, congestion, runny nose or sore throat. SKIN: No rash or itching, lesions, wounds. CARDIOVASCULAR: No chest pain, chest pressure or chest discomfort, palpitations, edema, orthopnea, syncopal events. RESPIRATORY: + shortness of breath, No cough or sputum, wheezing, hemoptysis. GASTROINTESTINAL: + anorexia, nausea, vomiting, abdominal pain/cramping. No diarrhea, melena, BRBPR. GENITOURINARY: + Frequency. No dysuria, urgency or retention. NEUROLOGICAL: No headache, dizziness, syncope, paralysis, ataxia, numbness or tingling in the extremities, focal weakness, change in bowel or bladder control, seizure. MUSCULOSKELETAL:+ muscle, back pain, joint pain or stiffness. HEMATOLOGIC: No anemia, bleeding or bruising. LYMPHATICS: No enlarged nodes. No history of splenectomy. PSYCHIATRIC: No history of depression or anxiety. ENDOCRINOLOGIC: No reports of sweating, cold or heat intolerance. + polyuria or polydipsia. ALLERGIES: + Lactose intolerant. Vital Signs Vital Signs Vital Signs: 02/27/23 19:22 Temperature 98.3 F Temperature Source Temporal Pulse Rate 132 H Respiratory Rate 18 Blood Pressure 119/77 Blood Pressure Mean 91 Pulse Ox 100 Oxygen Delivery Method Room Air Weight Weight: 185 lb 13.595 oz Body Mass Index (BMI) 23.8 Physical Exam Narrative Physical Examination: General: Awake, alert, oriented x 3 and cooperative, laying in the ED bed, fatigued and ill-appearing. Skin: Normal color, normal turgor, no icterus, no cyanosis, improving left buttock stage II. HEENT: AT/NC, EOMI, PERRLA, dry MM, significantly poor dentition, no carotid bruits or JVD noted. Lungs: Diminished, greater bases, mildly increased respiratory rate but no distress, no rales, ronchi or wheezing. Heart: Tachycardic with regular rhythm; no gallop, rub audible. Abdomen: Soft, generalized discomfort with palpation but no rebound or guarding, ND, hyperactive BS, no HSM. Extremities: No cyanosis, clubbing, or edema. Neurological: Patient awake, alert, oriented as noted, cognitive function intact; pupils equally reactive to light and accommodation, cranial nerves II-XII grossly normal, moving all 4 extremities, no focal deficits, strength moderately to severely decreased secondary to acute presentation although significantly less ill-appearing than his normal ED presentation. Psychiatric: Affect appears flat, fatigued, ill-appearing, no acute evidence of depressive or anxiety feelings. Results Lab / Micro Data Result Diagrams: 02/27/23 21:05 02/27/23 21:05 Labs: Laboratory Results - last 24 hr 02/27/23 21:05: WBC 12.7 H, RBC 5.93, Hgb 13.6, Hct 44.9, MCV 75.7 L, MCH 22.9 L, MCHC 30.3 L, RDW Std Deviation 41.3, RDW Coeff of Rabia 15.6 H, Plt Count 481 H, MPV 9.3, Immature Gran % (Auto) 0.700, Neut % (Auto) 81.4 H, Lymph % (Auto) 11.6 L, [place] % (Auto) 5.4, Eos % (Auto) 0.2, Baso % (Auto) 0.7, Absolute Neuts (auto) 10.4 H, Absolute Lymphs (auto) 1.47, Nucleated RBC % 0 02/27/23 21:05: Sodium 126 L, Potassium 4.6, Chloride 96 L, Carbon Dioxide 8.0 L*, Anion Gap 22 H, BUN 19 H, Creatinine 1.36 H, Est GFR (MDRD) Af Amer 84, Est GFR (MDRD) Non-Af 70, BUN/Creatinine Ratio 14.0, Glucose 537 H*, Calcium 9.7 02/27/23 21:05: Acetone Level MODERATE H Assessment & Plan Assessment/Plan (1) DKA (diabetic ketoacidoses): PLAN: Plan The patient is a 22 y/o M w/ PMHx: Hx VTE (DVT, PE on xarelto), Uncontrolled Diabetes mellitus type I with frequent DKA presentations noncomplaint with his insulin and diet, Chronic severe protein calorie malnutrition, Hx 2021 pericarditis/pericardial infection (Treated at [facility], MSSA infection treated with abx therapy), Known stage II L buttock pressure, recently admitted 01/20/23-01/23/23 following admission for DKA who now re-presents to the [facility] ED on 02/27/23 with recurrent issues with hyperglycemia although unclear if he was at last discharge having issues with low BS with longacting insulin decrease following PCP follow-up with onset on day of presentation sudden severe hyperglycemia with BS > 400, mild dyspnea, generalized abdominal discomfort/cramping with nausea and emesis. #1. Recurrent DKA w/ Diabetes mellitus type I with significant history of noncompliance: Will admit to the ICU, will administer an additional 1 L IV fluids with continue maintenance following, will administer sodium bicarb amp x1, continue on insulin drip, check serial K+, glucose w/ IVF changes pending these levels, serial chemistry, obtain mag, phos daily w/ repletion as needed, transition to home SC regimen when gap closed w/ overlap on drip, nutrition consultation. Encouraged diet and insulin regimen compliance. #2. Acute kidney injury: Secondary to acute presentation #1. Admission BUN/Cr 1.36, prior baseline creatinine noted to be primarily 0.6-0.9, most recently 01/23/2023 creatinine 0.64. will hydrate, hold nephrotoxic medications and repeat chemistry in AM. If no improvement would plan FeNa assessment. #3. History of VTE: Patient with history DVT, PE, we will continue patient home Xarelto regimen. #4. Lactose intolerant: We will temporarily hold patient home chronic lactase regimen until oral diet started, resume once appropriate. #5. GERD: We will maintain on IV PPI given current acute presentation #1 with n.p.o. status. #6. Recent diagnosis stage II pressure injury left buttock: Encourage continued offloading, position changes. #7. Severe chronic protein and calorie malnutrition: In the setting of significant chronic diabetic disease with noncompliance with serial readmissions for DKA, nutrition consulted for education and teaching. #8. DVT prophylaxis: Continue home Xarelto regimen. Admission Evaluation Time spent evaluating chart, patient history, patient evaluation, care planning and discussion with specialists: 75 minutes. Charges/Coding Visit Charges Inpatient E&M: 67663 Init Hosp L3
--- NOTE | 2023-02-27 22:02 | EDS_ITS ---
HPI History of Present Illness Chief Complaint: Nausea/Vomiting Informant: patient and family Narrative Narrative: Patient is a 22 year old male with past medical history of poorly controlled type 1 diabetes mellitus with multiple admissions for DKA. Patient is p resenting with concern for low blood sugar as well as vomiting. Patient states she has had diffuse abdominal pain, nausea and vomiting all day. No report of any black or blood in his vomit. No report of any diarrhea. Mother states he had a low blood sugar in the 200s and was concerned so she brought him in. He seemed more weak and confused per mother. Mother reports that this week with a follow-up in the office with primary care he had a blood sugar in the 50s. They did go down slightly on his long-acting insulin because of this. No other complaints at this time. Patient does admit this feels like his normal DKA. Patient states he has been compliant with his Xarelto. [facility] Medical History Asthma Diabetes mellitus type 1 femur surgery GERD (gastroesophageal reflux disease) Hypokalemia Hypokalemia Kidney disease Lower extremity edema Nausea and vomiting Non-smoker Noncompliance Nonhealing surgical wound Psychosocial problem Severe protein-calorie malnutrition Sinus tachycardia seen on property assessment monitor Ulcer of leg, chronic Wound of left lower extremity Home Medications insulin lispro 100 unit/mL subcutaneous pen (Humalog KwikPen (U-100) Insulin) 17 unit subcut TIDAC DIABETES 07/24/22 [History Last Taken Unknown] insulin lispro 100 unit/mL subcutaneous pen (Humalog KwikPen (U-100) Insulin) See Protocol subcut ACHS DM 07/24/22 [History Last Taken Unknown] acetaminophen 325 mg tablet (Tylenol) 325 mg PO Q6H PRN Pain 01/10/23 [History Last Taken 01/09/23] lactase 3,000 unit tablet (Lactaid) 3,000 unit PO TIDCM LACTOSE INTOLLERANCE 01/10/23 [History Last Taken Unknown] omeprazole 20 mg tablet,delayed release 20 mg PO DAILY PRN Acid Reflux 01/10/23 [History Last Taken 2 Days Ago ~01/08/23] potassium chloride 20 mEq/15 mL oral liquid 20 meq (15 mL) PO BID #1,200 mL 01/23/23 [Rx Last Taken Unknown] rivaroxaban 20 mg tablet (Xarelto) 20 mg PO DAILY BLOOD THINNER #30 tabs 01/23/23 [Rx Last Taken Unknown] blood sugar diagnostic (OneTouch Verio test strips) 02/27/23 [History Last T aken Unknown] flash glucose sensor (FreeStyle Niru 14 Day Sensor kit) 02/27/23 [History Last Taken Unknown] insulin glargine 100 unit/mL (3 mL) subcutaneous pen (Lantus Solostar U-100 Insulin) 30 unit subcut BID DIABETES 02/27/23 [History Last Taken Unknown] pen needle, diabetic 32 gauge x 5/32 (BD Ultra-Fine Lorin Pen Needle) 02/27/23 [History Last Taken Unknown] Allergy/AdvReac Type Severity Reaction Status Date / Time Milk Containing Products AdvReac Diarrhea Verified 02/27/23 19:22 Family History Father Polysubstance overdose Patient father young secondary to OD. Mother Iron deficiency anemia Other Asthma CVA (cerebral vascular accident) Diabetes Hypertension Thyroid disorder Surgical History H/O right knee surgery History of surgery on extremity Hx of knee surgery Social History housing: other details: Lives with his grandmother, aunt and mother. Smoking Status: Never smoker alcohol intake: current alcohol intake frequency: a few times a month substance use type: does not use ROS ROS ED Constitutional Constitutional ED: Denies chills or fever(s) Eyes Eyes: Denies diplopia Cardiovascular Cardiovascular: Denies chest pain Respiratory/Chest Respiratory/Chest: Reports dyspnea; Denies cough Gastrointestinal Gastrointestinal: Reports abdominal pain, nausea and vomiting; Denies constipation or diarrhea Musculoskeletal Musculoskeletal: Reports myalgias; Denies arthralgias Integumentary Denies rash Neurologic Neurologic: Reports weakness Hematologic/Lymphatic Hematologic/Lymphatic: Reports easy bleeding EXAM Physical Exam Const Vital Signs: 02/27/23 19:22 Temperature 98.3 F Temperature Source Temporal Pulse Rate 132 H Respiratory Rate 18 Blood Pressure 119/77 Blood Pressure Mean 91 Pulse Ox 100 Oxygen Delivery Method Room Air Positive unkempt Constitutional Narrative: ill appearing General Appearance ED: unkempt HEENT Reports dry mucous membranes Mouth ED: Yes dry mucous membranes Mouth: dry mucous membranes Eyes PERRL and EOMs intact bilaterally Neck supple Chest Wall inspection of chest normal and palpation of chest normal Resp clear to auscultation bilaterally Resp Narrative: Tachypneic, consistent with Kussmaul respirations Cardio regular rhythm Rate: tachycardic GI non-distended GI Narrative: Diffuse tenderness to palpation Auscultation: normoactive bowel sounds Palpation: soft Extremity normal to inspection General Extremety ED: Negative for edema General Extremity: Negative for edema Neuro oriented x3 Neuro Narrative: Answers questions appropriately. Generally weak. Improved mentation from prior interactions of had with him Sensorium / Orientation: alert Motor Exam: general weakness Psych mental status grossly normal Appearance: unkempt Skin no rashes or lesions noted and no wounds MDM MDM MDM Narrative Medical decision making narrative: Patient is evaluated for altered mental status and family is concerned for hypoglycemia. Patient is in fact hyperglycemic and in DKA. He has tachypneic and tachycardic. He is given 2 L of IV fluid resuscitation in the emergency room. Protocol labs were obtained and the patient has pseudohyponatremia with a sodium of 126, glucose of 537 with an elevated anion gap of 22. He has an RADHA with a creatinine of 1.36. He has moderate acetone in his pH is metabolic acidosis at 7.0 with a bicarb of 20 and a PO2 of 49. I suspect his DKA is what is causing his abdominal pain and nausea and vomiting. Case is discussed with admitting physician, Dr. Kapoor who accepted him to the ICU. As patient is anticipated to go up to the floor quickly will start insulin drip upstairs and allow for fluid resuscitation of 2 L of IV fluid in the emergency room. Lab Data Attestation: I reviewed the patient's lab results. Labs: Laboratory Results - last 24 hr 02/27/23 02/27/23 02/27/23 21:05 21:05 21:05 WBC 12.7 H RBC 5.93 Hgb 13.6 Hct 44.9 MCV 75.7 L MCH 22.9 L MCHC 30.3 L RDW Std Deviation 41.3 RDW Coeff of Rabia 15.6 H Plt Count 481 H MPV 9.3 Immature Gran % (Auto) 0.700 Neut % (Auto) 81.4 H Lymph % (Auto) 11.6 L Wil[place] % (Auto) 5.4 Eos % (Auto) 0.2 Baso % (Auto) 0.7 Absolute Neuts (auto) 10.4 H Absolute Lymphs (auto) 1.47 Nucleated RBC % 0 Sodium 126 L Potassium 4.6 Chloride 96 L Carbon Dioxide 8.0 L* Anion Gap 22 H BUN 19 H Creatinine 1.36 H Est GFR (MDRD) Af Amer 84 Est GFR (MDRD) Non-Af 70 BUN/Creatinine Ratio 14.0 Glucose 537 H* Calcium 9.7 Phosphorus Acetone Level MODERATE H 02/27/23 21:05 WBC RBC Hgb Hct MCV MCH MCHC RDW Std Deviation RDW Coeff of Rabia Plt Count MPV Immature Gran % (Auto) Neut % (Auto) Lymph % (Auto) [place] % (Auto) Eos % (Auto) Baso % (Auto) Absolute Neuts (auto) Absolute Lymphs (auto) Nucleated RBC % Sodium Potassium Chloride Carbon Dioxide Anion Gap BUN Creatinine Est GFR (MDRD) Af Amer Est GFR (MDRD) Non-Af BUN/Creatinine Ratio Glucose Calcium Phosphorus 4.4 Acetone Level Rhythm Strip Rhythm Strip: Sinus Tach Rate: 120 Ectopy: None EKG Initial EKG: Attestation: I personally reviewed and interpreted this EKG as follows: Interpretation: Sinus Tachycardia Comments: Sinus tachycardia rate of 120 bpm Normal axis Normal intervals Normal ST segments Critical Care Time Critical Care Time: Yes Critical care time (excluding procedures): 30-74 minutes (35), Discussing w/Patient &/or Family/Habilitation Training Specialist and Arranging Admission or Transfer Discharge Plan Triage Chief Complaint: Nausea/Vomiting ED Provider: Virginia Nguyễn Dx/Rx/DC Orders Clinical Impression: DKA (diabetic ketoacidoses), Noncompliance with diabetes treatment Primary Care Provider: Mario Reyes Disposition Disposition: Acute Care [facility]
[2023-02-27 22:12] LABS: Phosphorus 4.4 mg/dL (2.5-4.9)
[2023-02-27 22:21] LABS: Blood Gas Specimen Type VEN; O2 Delivery Device Room Air; VBG BASE EXCESS -25 mmol/L (-1.0-3.5); VBG Bicarbonate 5 mmol/L (22-26); VBG PO2 49 mmHg (25-40); VBG SO2 67 % (50-70); VBG TCO2 6 mmol/L (23-33); VBG pCO2 20.2 mmHg (41-51); VBG pH 7.04 (7.32-7.42)
[2023-02-27 23:13] LABS: Bacteria 0 SEEN /hpf (None Seen); Mucous, Urine 0 SEEN /hpf (<or=2+); Red Blood Cells-Urine 0 SEEN /hpf (0-5); Squamous Epithelial Cells - UA 0 SEEN /hpf (0-5)
[2023-02-27 23:20] LABS: Color, Urine Yellow (Yellow); Glucose, Dipstick 1000 mg/dl (Normal); Leukocyte Esterase-Dipstick 100 /ul (Negative); Nitrite-Dipstick Negative (Negative); Occult Blood-Urine 50 /ul (Negative); Protein-Dipstick 100 mg/dl (Negative); Urine Bilirubin Dipstick Negative (Negative); Urine Clarity Clear (Clear); Urine Urobilinogen Normal (Normal)
[2023-02-27 23:21] LABS: Ketone-Dipstick 150 mg/dl (Negative)
[2023-02-27 23:49] VITALS: BMI 23.8
[2023-02-27 23:59] LABS: Anion Gap 23 (5-15); BUN 19 mg/dL (7-18); BUN/Creat Ratio 16.1 RATIO (10-20); Calcium,Total 8.9 mg/dL (8.5-10.1); Chloride 100 mmol/L (98-107); Creatinine, Serum 1.18 mg/dL (0.70-1.30); EST Glomerular Filtration Rate 82 mL/min (>60); Est Glom Filt Rate - Afr Amer 99 mL/min (>60); Estimated Creatinine Clearance 114.17 ml/min; Glucose 526 mg/dL (74-106); Magnesium 1.5 mg/dL (1.6-2.6); Potassium 4.6 mmol/L (3.5-5.1); Sodium Level 129 mmol/L (136-145)
[2023-02-28] VITALS (28 sets, daily range): BP systolic 91–132; BP diastolic 48–92; PULSE 113–147; RESP 16–29; TEMP 36.2–36.6; O2SAT 98–100; BMI 24.0
[2023-02-28] LABS: White Blood Cells 10-25 SEEN /hpf (0-5); Yeast-Urine 3+ /hpf (None Seen)
[2023-02-28] MEDS: 0.9% Normal Saline 1,000 ML 150 ML IV (00:32)
[2023-02-28] MEDS: Ondansetron 4 MG/2 ML Vial IV (00:46)
[2023-02-28] MEDS: 0.9% Saline Lock 10 ML Syringe IV (00:46)
[2023-02-28] MEDS: Sodium Bicarbonate 8.4% 50 ML Syringe 50 MEQ IV ×2 (01:24→04:52)
[2023-02-28 02:06] LABS: Bedside Glucose > 500 mg/dL (74-106)
[2023-02-28 03:16] LABS: Bedside Glucose > 500 mg/dL (74-106)
[2023-02-28 03:59] LABS: Absolute Lymphocyte Count 1.26 X10^3/uL (0.83-4.51); Basophil# 0.07 X10^3/uL; Basophil% 0.5 % (0-1); Hematocrit 41.6 % (40-54); Hemoglobin 12.2 g/dL (13.0-16.5); Lymphocyte # 1.26 X10^3/ul (0.83-4.51); Lymphocyte % 8.7 % (19-41); Mean Corp Hgb Conc 29.3 g/dL (32-36); Mean Corpuscular Volume 78.3 fL (80-94); Mean Platelet Vol. 9.8 fl (6.2-12.0); Monocyte# 1.02 X10^3/uL; Monocyte% 7.1 % (0-10); NRBC Flagged by Analyzer 0 % (0-5); Neutrophil # 11.96 X10^3/uL (2.7-7.7); Neutrophil % 82.9 % (47-70); Platelet Count 367 K/mm3 (150-450); RBC Distribution Width CV 15.3 % (11.6-14.6); RBC Distribution Width SD 42.9 fl (35.1-43.9); Red Blood Count 5.31 M/mm3 (4.6-6.2); White Blood Count 14.4 K/mm3 (4.4-11.0)
[2023-02-28 04:16] LABS: Bedside Glucose 391 mg/dL (74-106)
[2023-02-28 04:17] LABS: Anion Gap 21 (5-15); BUN 21 mg/dL (7-18); Calcium,Total 8.7 mg/dL (8.5-10.1); Chloride 105 mmol/L (98-107); Creatinine, Serum 1.31 mg/dL (0.70-1.30); EST Glomerular Filtration Rate 73 mL/min (>60); Est Glom Filt Rate - Afr Amer 88 mL/min (>60); Estimated Creatinine Clearance 99.96 ml/min; Glucose 412 mg/dL (74-106); Potassium 3.9 mmol/L (3.5-5.1); Sodium Level 130 mmol/L (136-145)
[2023-02-28 05:21] LABS: Bedside Glucose 296 mg/dL (74-106)
[2023-02-28] MEDS: Potassium Chloride 10mEq/100mL 10 MEQ/100 ML IV.SOLN. 100 MEQ IV BOLUS ×8 (05:58→22:06)
[2023-02-28] MEDS: Dext 5%-0.45% NS 1,000 ML 150 ML IV ×3 (06:00→19:39)
[2023-02-28 06:10] LABS: Bedside Glucose 225 mg/dL (74-106)
[2023-02-28 07:05] LABS: Bedside Glucose 225 mg/dL (74-106)
--- NOTE | 2023-02-28 07:10 | PN.HOSP_ITS ---
Reason for Visit Reason for Visit: Diagnoses Type 2 diabetes mellitus with ketoacidosis without coma (02/27/23) Objective Data Objective Data Vital Signs: Vital Signs Temp Pulse Resp BP Pulse Ox O2 Del Method 97.8 F 131 H 19 H 119/73 100 Room Air 02/28/23 04:00 02/28/23 07:00 02/28/23 07:00 02/28/23 07:00 02/28/23 07:00 02/28/23 07:00 Oxygen Delivery Method Room Air Weight: 180 lb 15.992 oz Body Mass Index (BMI) 24.0 Intake & Output: Intake and Output for Last 24 Hours 02/26/23 02/27/23 02/28/23 23:59 23:59 23:59 Intake Total 1000 / 1000 1969.65 / 1969.65 Output Total 825 / 825 Balance 1000 / 1000 1144.65 / 1144.65 Lab / Micro Data Result Diagrams: 02/28/23 03:53 02/28/23 03:53 Labs: Laboratory Results - last 24 hr 02/27/23 21:05: WBC 12.7 H, RBC 5.93, Hgb 13.6, Hct 44.9, MCV 75.7 L, MCH 22.9 L , MCHC 30.3 L, RDW Std Deviation 41.3, RDW Coeff of Rabia 15.6 H, Plt Count 481 H, MPV 9.3, Immature Gran % (Auto) 0.700, Neut % (Auto) 81.4 H, Lymph % (Auto) 11.6 L, [place] % (Auto) 5.4, Eos % (Auto) 0.2, Baso % (Auto) 0.7, Absolute Neuts (auto) 10.4 H, Absolute Lymphs (auto) 1.47, Nucleated RBC % 0 02/27/23 21:05: Sodium 126 L, Potassium 4.6, Chloride 96 L, Carbon Dioxide 8.0 L*, Anion Gap 22 H, BUN 19 H, Creatinine 1.36 H, Est GFR (MDRD) Af Amer 84, Est GFR (MDRD) Non-Af 70, BUN/Creatinine Ratio 14.0, Glucose 537 H*, Calcium 9.7 02/27/23 21:05: Acetone Level MODERATE H 02/27/23 21:05: Phosphorus 4.4 02/27/23 23:05: Urine Color Yellow, Urine Clarity Clear, Urine pH 5.0, Ur Specific [place] 1.020, Urine Protein 100 H, Urine Glucose (UA) 1000 H, Urine Ketones 150 A*, Urine Occult Blood 50 H, Urine Nitrite Negative, Urine Bilirubin Negative, Urine Urobilinogen Normal, Ur Leukocyte Esterase 100 H, Urine RBC 0 SEEN, Urine WBC 10-25 SEEN, Ur Squamous Epith Cells 0 SEEN, Urine Bacteria 0 SEEN, Urine Mucus 0 SEEN, Urine Yeast 3+ 02/27/23 23:10: Sodium 129 L, Potassium 4.6, Chloride 100, Carbon Dioxide 6.0 L* , Anion Gap 23 H, BUN 19 H, Creatinine 1.18, Estim Creat Clear Calc 114.17, Est GFR (MDRD) Af Amer 99, Est GFR (MDRD) Non-Af 82, BUN/Creatinine Ratio 16.1, Glucose 526 H*, Calcium 8.9, Magnesium 1.5 L 02/27/23 23:10: Phosphorus 4.0 02/28/23 01:46: POC Glucose > 500 H* 02/28/23 02:54: POC Glucose > 500 H* 02/28/23 03:53: Sodium 130 L, Potassium 3.9, Chloride 105, Carbon Dioxide 4.0 L* , Anion Gap 21 H, BUN 21 H, Creatinine 1.31 H, Estim Creat Clear Calc 99.96, Est GFR (MDRD) Af Amer 88, Est GFR (MDRD) Non-Af 73, BUN/Creatinine Ratio 16.0, Glucose 412 H, Calcium 8.7 02/28/23 03:53: WBC 14.4 H, RBC 5.31, Hgb 12.2 L, Hct 41.6, MCV 78.3 L, MCH 23.0 L, MCHC 29.3 L, RDW Std Deviation 42.9, RDW Coeff of Rabia 15.3 H, Plt Count 367, MPV 9.8, Immature Gran % (Auto) 0.800, Neut % (Auto) 82.9 H, Lymph % (Auto) 8.7 L, [place] % (Auto) 7.1, Eos % (Auto) 0.0, Baso % (Auto) 0.5, Absolute Neuts (auto) 12.0 H, Absolute Lymphs (auto) 1.26, Nucleated RBC % 0 02/28/23 03:54: POC Glucose 391 H 02/28/23 04:49: POC Glucose 296 H 02/28/23 05:48: POC Glucose 225 H 02/28/23 06:47: POC Glucose 225 H ABG Data ABG results: ABG 02/27/23 22:14 Specimen Type MARILYNN VBG pH 7.04 L* VBG pO2 49 H VBG HCO3 5 L VBG Total CO2 6 L VBG O2 Sat (Calc) 67 VBG Base Excess -25 L POC Mix VBG pCO2 Pt Tmp 20.2 L O2 Delivery Device Room Air Crit Call To/Read Back Yes Blood Gas Notified Whom Dr. Nguyễn Blood Gas Notified Time 22:15:41 Rhythm Strip Rhythm Strip: Sinus Tach Rate: 120 Ectopy: None Assessment & Plan Assessment/Plan (1) DKA (diabetic ketoacidoses): PLAN: Plan The patient is a 22 y/o M w/ PMHx: Hx VTE (DVT, PE on xarelto), Uncontrolled Diabetes mellitus type I with frequent DKA presentations noncomplaint with his insulin and diet, Chronic severe protein calorie malnutrition, Hx 2021 pericarditis/pericardial infection (Treated at [facility], MSSA infection treated with abx therapy), Known stage II L buttock pressure, recently admitted 01/20/23- 01/23/23 following admission for DKA who now re-presents to the [facility] ED on 02/27/23 with recurrent issues with hyperglycemia although unclear if he was at last discharge having issues with low BS with longacting insulin decrease following PCP follow-up with onset on day of presentation sudden severe hyperglycemia with BS > 400, mild dyspnea, generalized abdominal discomfort/cramping with nausea a nd emesis. #1. Recurrent DKA w/ Diabetes mellitus type I with significant history of noncompliance: Will admit to the ICU, will administer an additional 1 L IV fluids with continue maintenance following, will administer sodium bicarb amp x1, continue on insulin drip, check serial K+, glucose w/ IVF changes pending these levels, serial chemistry, obtain mag, phos daily w/ repletion as needed, transition to home SC regimen when gap closed w/ overlap on drip, nutrition consultation. Encouraged diet and insulin regimen compliance. #2. Acute kidney injury: Secondary to acute presentation #1. Admission BUN/Cr 9/1.36, prior baseline creatinine noted to be primarily 0.6-0.9, most recently 01/23/2023 creatinine 0.64. will hydrate, hold nephrotoxic medications and repeat chemistry in AM. If no improvement would plan FeNa assessment. #3. History of VTE: Patient with history DVT, PE, we will continue patient home Xarelto regimen. #4. Lactose intolerant: We will temporarily hold patient home chronic lactase regimen until oral diet started, resume once appropriate. #5. GERD: We will maintain on IV PPI given current acute presentation #1 with n.p.o. status. #6. Recent diagnosis stage II pressure injury left buttock: Encourage continued offloading, position changes. #7. Severe chronic protein and calorie malnutrition: In the setting of significant chronic diabetic disease with noncompliance with serial readmissions for DKA, nutrition consulted for education and teaching. #8. DVT prophylaxis: Continue home Xarelto regimen. A
--- NOTE | 2023-02-28 07:10 | PCM.PN.HOSP ---
Reason for Visit Reason for Visit: Diagnoses Type 2 diabetes mellitus with ketoacidosis without coma (02/27/23) Follow-up for DKA. Objective Data Objective Data Vital Signs: Vital Signs Temp Pulse Resp BP Pulse Ox O2 Del Method 97.8 F 131 H 19 H 119/73 100 Room Air 02/28/23 04:00 02/28/23 07:00 02/28/23 07:00 02/28/23 07:00 02/28/23 07:00 02/28/23 07:00 Oxygen Delivery Method Room Air Weight: 180 lb 15.992 oz Body Mass Index (BMI) 24.0 Intake & Output: Intake and Output for Last 24 Hours 02/26/23 02/27/23 02/28/23 23:59 23:59 23:59 Intake Total 1000 / 1000 1969.65 / 1969.65 Output Total 825 / 825 Balance 1000 / 1000 1144.65 / 1144.65 Lab / Micro Data Result Diagrams: 02/28/23 03:53 02/28/23 03:53 Labs: Laboratory Results - last 24 hr 02/27/23 21:05: WBC 12.7 H, RBC 5.93, Hgb 13.6, Hct 44.9, MCV 75.7 L, MCH 22.9 L, MCHC 30.3 L, RDW Std Deviation 41.3, RDW Coeff of Rabia 15.6 H, Plt Count 481 H, MPV 9.3, Immature Gran % (Auto) 0.700, Neut % (Auto) 81.4 H, Lymph % (Auto) 11.6 L, [place] % (Auto) 5.4, Eos % (Auto) 0.2, Baso % (Auto) 0.7, Absolute Neuts (auto) 10.4 H, Absolute Lymphs (auto) 1.47, Nucleated RBC % 0 02/27/23 21:05: Sodium 126 L, Potassium 4.6, Chloride 96 L, Carbon Dioxide 8.0 L*, Anion Gap 22 H, BUN 19 H, Creatinine 1.36 H, Est GFR (MDRD) Af Amer 84, Est GFR (MDRD) Non-Af 70, BUN/Creatinine Ratio 14.0, Glucose 537 H*, Calcium 9.7 02/27/23 21:05: Acetone Level MODERATE H 02/27/23 21:05: Phosphorus 4.4 04/18/23 23:05: Urine Color Yellow, Urine Clarity Clear, Urine pH 5.0, Ur Specific [place] 1.020, Urine Protein 100 H, Urine Glucose (UA) 1000 H, Urine Ketones 150 A*, Urine Occult Blood 50 H, Urine Nitrite Negative, Urine Bilirubin Negative, Urine Urobilinogen Normal, Ur Leukocyte Esterase 100 H, Urine RBC 0 SEEN, Urine WBC 10-25 SEEN, Ur Squamous Epith Cells 0 SEEN, Urine Bacteria 0 SEEN, Urine Mucus 0 SEEN, Urine Yeast 3+ 02/27/23 23:10: Sodium 129 L, Potassium 4.6, Chloride 100, Carbon Dioxide 6.0 L*, Anion Gap 23 H, BUN 19 H, Creatinine 1.18, Estim Creat Clear Calc 114.17, Est GFR (MDRD) Af Amer 99, Est GFR (MDRD) Non-Af 82, BUN/Creatinine Ratio 16.1, Glucose 526 H*, Calcium 8.9, Magnesium 1.5 L 02/27/23 23:10: Phosphorus 4.0 02/28/23 01:46: POC Glucose > 500 H* 02/28/23 02:54: POC Glucose > 500 H* 02/28/23 03:53: Sodium 130 L, Potassium 3.9, Chloride 105, Carbon Dioxide 4.0 L*, Anion Gap 21 H, BUN 21 H, Creatinine 1.31 H, Estim Creat Clear Calc 99.96, Est GFR (MDRD) Af Amer 88, Est GFR (MDRD) Non-Af 73, BUN/Creatinine Ratio 16.0, Glucose 412 H, Calcium 8.7 02/28/23 03:53: WBC 14.4 H, RBC 5.31, Hgb 12.2 L, Hct 41.6, MCV 78.3 L, MCH 23.0 L, MCHC 29.3 L, RDW Std Deviation 42.9, RDW Coeff of Rabia 15.3 H, Plt Count 367, MPV 9.8, Immature Gran % (Auto) 0.800, Neut % (Auto) 82.9 H, Lymph % (Auto) 8.7 L, [place] % (Auto) 7.1, Eos % (Auto) 0.0, Baso % (Auto) 0.5, Absolute Neuts (auto) 12.0 H, Absolute Lymphs (auto) 1.26, Nucleated RBC % 0 02/28/23 03:54: POC Glucose 391 H 02/28/23 04:49: POC Glucose 296 H 02/28/23 05:48: POC Glucose 225 H 02/28/23 06:47: POC Glucose 225 H ABG Data ABG results: ABG 02/27/23 22:14 Specimen Type MARILYNN VBG pH 7.04 L* VBG pO2 49 H VBG HCO3 5 L VBG Total CO2 6 L VBG O2 Sat (Calc) 67 VBG Base Excess -25 L POC Mix VBG pCO2 Pt Tmp 20.2 L O2 Delivery Device Room Air Crit Call To/Read Back Yes Blood Gas Notified Whom Dr. Nguyễn Blood Gas Notified Time 22:15:41 Rhythm Strip Rhythm Strip: Sinus Tach Rate: 120 Ectopy: None Physical Exam Narrative Seen and examined. Patient readmitted with DKA. Complain of pain/discomfort over lower chest and whole abdomen. Generalized muscle aches of extremities. Feeling nauseous. Physical exam General: Alert, Oriented x3, Cooperative HEENT: Atraumatic, PERRLA, EOMI, Normocephalic Oral : Oral mucosa dry. Dental caries with broken teeth. No oral/mucosal ulceration. Neck: Supple, No JVD, Negative Carotid Bruits Lungs: Air entry diminished in bilateral lung bases. No crepitation/rhonchi Cardiovascular: Sinus tachycardia, Normal S1, Normal S2, No murmurs Abdomen: Bowel Sounds Present, Soft, mild generalized tenderness but no rebound tenderness or guarding/rigidity, Non-Distended : No renal angle tenderness. No suprapubic tenderness. Extremities: No edema, Capillary Refill Less than 3 Seconds Skin: No rashes, No breakdown Musculoskeletal: Range of motion intact. Nonspecific tenderness to muscles of extremities. Neurological: Cranial nerves II-XII grossly intact, DTR 2+/4 and Symmetrical, Neuro grossly intact Psych/Mental Status: Flat affect Assessment & Plan Assessment/Plan (1) DKA (diabetic ketoacidoses): PLAN: Plan This is a 22-year-old gentleman with history of recurrent admission for DKA is being admitted for DKA. Patient came to ED for concern of low blood sugar and vomiting but glucose was found to be high in ED 537 with moderate acetone level. Patient had follow with PCP 1 week ago and was found to have glucose in 50s and long-acting insulin dose was decreased. Patient diffuse abdominal pain nausea vomiting all day. No diarrhea. 1.? DKA with high anion gap metabolic acidosis: Patient is being admitted in ICU. Patient on DKA protocol with IV fluid resuscitation and insulin drip. Bicarb 12, anion gap 19. Moderate acetone level. Magnesium 1.5. Phosphorus normal.The patient has mild leukocytosis due to DKA. ? Glucose in BMP 790.? High anion gap 31, bicarb 3.0, sodium 131 and chloride 97.? Magnesium 1.9, phosphorus high 5.8.??Liver chemistry and serum osmolarity ordered.? Light Bulb Tester consult.? VBG stat ordered.? Empirically 50 mEq of sodium bicarb ordered.? 2 L normal saline bolus ordered in ED and continue IV fluid normal saline as per DKA protocol.? Started on insulin drip.? BMP every 4 hourly.? Monitor labs, intake/output.? NPO. 01/21: Patient seen by water quality manager.? Anion gap is still not closed.? Last night gap 17.? Bicarb 13, hyponatremia and hypokalemia.? IV fluid changed to D5 half NS + KCl.? Continue volume resuscitation and monitor urine output.? Patient has Youssef catheter.? Aggressive electrolyte repletion.? Continue insulin infusion.? Glucoses in 200. 2.? Acute kidney injury prerenal due to hypovolemia/DKA: Admission BUN/Cr 9/1.36, prior baseline creatinine noted to be primarily 0.6-0.9. Most recent BUN 20/1.19 3.? 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 Wound nurse consult.? Wet-to-dry dressing.? Mepilex dressing was applied for protection. 5.? Severe chronic protein and caloric malnutrition in the context of chronic disease and noncompliance as evidenced by inadequate oral intake: Plain Clothes Police Officer consult. DVT prophylaxis: On Xarelto Full code 02/28/23 08:10: Sodium 137, Potassium 3.8, Chloride 106, Carbon Dioxide 12.0 L, Anion Gap 19 H, BUN 20 H, Creatinine 1.19, Estim Creat Clear Calc 110.04, Est GFR (MDRD) Af Amer 98, Est GFR (MDRD) Non-Af 81, BUN/Creatinine Ratio 16.8, Glucose 258 H, Calcium 8.8 Charges/Coding Visit Charges Inpatient E&M: 22457 Subs Hosp L3
[2023-02-28 08:05] LABS: Bedside Glucose 260 mg/dL (74-106)
[2023-02-28 08:31] LABS: Anion Gap 19 (5-15); BUN 20 mg/dL (7-18); BUN/Creat Ratio 16.8 RATIO (10-20); Calcium,Total 8.8 mg/dL (8.5-10.1); Chloride 106 mmol/L (98-107); Creatinine, Serum 1.19 mg/dL (0.70-1.30); EST Glomerular Filtration Rate 81 mL/min (>60); Est Glom Filt Rate - Afr Amer 98 mL/min (>60); Estimated Creatinine Clearance 110.04 ml/min; Glucose 258 mg/dL (74-106); Potassium 3.8 mmol/L (3.5-5.1); Sodium Level 137 mmol/L (136-145)
[2023-02-28 09:15] LABS: Bedside Glucose 220 mg/dL (74-106)
[2023-02-28 10:15] LABS: Bedside Glucose 216 mg/dL (74-106)
--- NOTE | 2023-02-28 11:02 | CASEMGMT ---
VERONA FONTANEZ Assessment: Face to Face with pt for initial transition planning/care coordination assessment. RN HUSEYIN introduced self and role at [facility], pt voices understanding and consents to assessment. Pt is A/O x4 and answers all questions appropriately at this time. Pt lying in bed in no distress. Pt answers questions with one word answers. Care providers, pharmacy, and demographics verified/updated. Admitting Dx: DKA PCP:Eric Specialists:salima Raymond Pharmacy: [facility] Insurance: [employer] [facility] Prescription Benefit: yes LNOK: Ines Carlton, mother; Ines Carlton, grandmother Living Arrangements: Pt lives with mother and grandmother as well as other family members in a 2 story home with 12 steps to get to the basement with a rail. Pt reports he is I in ADL's and denies concerns at home. Transportation: Pt grandmother transports him or he uses his insurance. DME/HHC/SNF: Pt has a cane and walker at home. He has a CGM with sufficient supplies. Pt reports he has all of his medications including insulin as well. Pt denies hx of HHC or SNF stays. Pt states no concerns with going home at time of dc. He states he is finished with [facility] but has not turned the ipad in yet. Pt reports he has gone to all of his scheduled appts except for a second one with the counseling center. Pt states it was scheduled for 02/09 and he did not have transportation and there was not enough time to schedule through his insurance. Pt states since, his grandmother has secured a car. Pt states he did go to the first appt and felt it to be somewhat helpful. Asked if pt plans to schedule another appt and he is undecided at this time. Pt reports taking all meds as ordered. He is aware of his upcoming appt with . Pt states no further concerns/needs. CM to follow. Advised pt to ask CM if any further question/concerns/needs arise, voices understanding. Pt Goal: Home Plan: Home
[2023-02-28 11:20] LABS: Bedside Glucose 197 mg/dL (74-106)
[2023-02-28 12:47] LABS: Anion Gap 7 (5-15); BUN 19 mg/dL (7-18); BUN/Creat Ratio 16.5 RATIO (10-20); Calcium,Total 8.7 mg/dL (8.5-10.1); Chloride 112 mmol/L (98-107); Creatinine, Serum 1.15 mg/dL (0.70-1.30); EST Glomerular Filtration Rate 84 mL/min (>60); Est Glom Filt Rate - Afr Amer 102 mL/min (>60); Estimated Creatinine Clearance 113.87 ml/min; Glucose 189 mg/dL (74-106); Potassium 3.6 mmol/L (3.5-5.1); Sodium Level 135 mmol/L (136-145)
[2023-02-28 13:10] LABS: Bedside Glucose 182 mg/dL (74-106)
[2023-02-28 14:40] LABS: Bedside Glucose 155 mg/dL (74-106)
[2023-02-28 16:30] LABS: Bedside Glucose 132 mg/dL (74-106)
[2023-02-28 16:37] LABS: Anion Gap 7 (5-15); BUN 18 mg/dL (7-18); BUN/Creat Ratio 16.7 RATIO (10-20); Calcium,Total 8.5 mg/dL (8.5-10.1); Chloride 111 mmol/L (98-107); Creatinine, Serum 1.08 mg/dL (0.70-1.30); EST Glomerular Filtration Rate 91 mL/min (>60); Est Glom Filt Rate - Afr Amer 110 mL/min (>60); Estimated Creatinine Clearance 121.25 ml/min; Glucose 141 mg/dL (74-106); Potassium 3.3 mmol/L (3.5-5.1); Sodium Level 135 mmol/L (136-145)
[2023-02-28] MEDS: Rivaroxaban 20 MG Tablet PO (17:41)
[2023-02-28 18:05] LABS: Bedside Glucose 130 mg/dL (74-106)
[2023-02-28 19:10] LABS: Bedside Glucose 113 mg/dL (74-106)
[2023-02-28] MEDS: Insulin Glargine-YFGN 100 UNIT/ML Pen 10 UNIT SC (20:34)
[2023-02-28 20:47] LABS: Anion Gap 7 (5-15); BUN 17 mg/dL (7-18); BUN/Creat Ratio 17.2 RATIO (10-20); Calcium,Total 8.5 mg/dL (8.5-10.1); Chloride 111 mmol/L (98-107); Creatinine, Serum 0.99 mg/dL (0.70-1.30); EST Glomerular Filtration Rate 100 mL/min (>60); Est Glom Filt Rate - Afr Amer 121 mL/min (>60); Estimated Creatinine Clearance 132.27 ml/min; Glucose 116 mg/dL (74-106); Potassium 3.3 mmol/L (3.5-5.1); Sodium Level 137 mmol/L (136-145)
[2023-02-28] MEDS: Insulin Lispro 100 UNIT/ML INSULN.PEN SC (22:10)
[2023-02-28 22:30] LABS: Bedside Glucose 286 mg/dL (74-106)
[2023-03-01] VITALS (11 sets, daily range): BP systolic 101–143; BP diastolic 46–80; PULSE 105–123; RESP 14–20; TEMP 36.5–37.1; O2SAT 96–100; BMI 24.6
[2023-03-01 05:12] LABS: Absolute Lymphocyte Count 1.58 X10^3/uL (0.83-4.51); Absolute Neutrophil Count 3.4 X10^3/uL (2.0-7.7); Basophil# 0.03 X10^3/uL; Basophil% 0.5 % (0-1); Eosinophil# 0.11 X10^3/uL; Hematocrit 32.8 % (40-54); Hemoglobin 10.2 g/dL (13.0-16.5); Lymphocyte # 1.58 X10^3/ul (0.83-4.51); Lymphocyte % 28.5 % (19-41); Mean Corp Hgb Conc 31.1 g/dL (32-36); Mean Corpuscular Hgb 23.3 pg (27.0-32.0); Mean Corpuscular Volume 74.9 fL (80-94); Mean Platelet Vol. 9.5 fl (6.2-12.0); Monocyte# 0.44 X10^3/uL; Monocyte% 7.9 % (0-10); NRBC Flagged by Analyzer 0 % (0-5); Neutrophil # 3.36 X10^3/uL (2.7-7.7); Neutrophil % 60.7 % (47-70); Platelet Count 307 K/mm3 (150-450); RBC Distribution Width CV 15.3 % (11.6-14.6); RBC Distribution Width SD 41.2 fl (35.1-43.9); Red Blood Count 4.38 M/mm3 (4.6-6.2); White Blood Count 5.5 K/mm3 (4.4-11.0)
[2023-03-01 05:35] LABS: ALB/GLOB Ratio 1.1 RATIO (0.9-2.4); AST(SGOT) 10 U/L (15-37); Alanine Aminotransfer ALT/SGPT 20 U/L (16-61); Albumin, Serum 3.7 g/dL (3.2-5.0); Alkaline Phosphatase 145 U/L (45-117); Anion Gap 9 (5-15); BUN 12 mg/dL (7-18); BUN/Creat Ratio 11.1 RATIO (10-20); Calcium,Total 8.8 mg/dL (8.5-10.1); Chloride 105 mmol/L (98-107); Creatinine, Serum 1.08 mg/dL (0.70-1.30); EST Glomerular Filtration Rate 91 mL/min (>60); Est Glom Filt Rate - Afr Amer 110 mL/min (>60); Estimated Creatinine Clearance 121.25 ml/min; Globulin 3.5 g/dL (2.2-4.2); Glucose 404 mg/dL (74-106); Potassium 3.4 mmol/L (3.5-5.1); Protein, Total 7.2 g/dL (6.4-8.2); Sodium Level 133 mmol/L (136-145)
--- NOTE | 2023-03-01 07:54 | PN.HOSP_ITS ---
Reason for Visit Reason for Visit: Diagnoses Type 2 diabetes mellitus with ketoacidosis without coma (02/27/23) Subjective Subjective Follow-up for DKA. Patient is still has mild abdominal aches and soreness. Diffuse muscle aches and pain in lower extremities. Objective Data Objective Data Vital Signs: Vital Signs Temp Pulse Resp BP Pulse Ox O2 Del Method 98 F 123 H 16 122/76 H 100 Room Air 03/01/23 00:00 03/01/23 07:00 03/01/23 07:00 03/01/23 07:00 03/01/23 07:00 03/01/23 07:00 Oxygen Delivery Method Room Air Weight: 186 lb 15.232 oz Body Mass Index (BMI) 24.6 Intake & Output: Intake and Output for Last 24 Hours 02/27/23 02/28/23 03/01/23 23:59 23:59 23:59 Intake Total 1000 / 1000 5869.56 / 5869.56 Output Total 2625 / 2625 1050 / 1050 Balance 1000 / 1000 3244.56 / 3244.56 -1050 / -1050 Lab / Micro Data Result Diagrams: 03/01/23 04:45 03/01/23 04:45 Labs: Laboratory Results - last 24 hr 02/28/23 07:44: POC Glucose 260 H 02/28/23 08:10: Sodium 137, Potassium 3.8, Chloride 106, Carbon Dioxide 12.0 L, Anion Gap 19 H, BUN 20 H, Creatinine 1.19, Estim Creat Clear Calc 110.04, Est GFR (MDRD) Af Amer 98, Est GFR (MDRD) Non-Af 81, BUN/Creatinine Ratio 16.8, Glucose 258 H, Calcium 8.8 02/28/23 08:51: POC Glucose 220 H 02/28/23 09:50: POC Glucose 216 H 02/28/23 10:58: POC Glucose 197 H 02/28/23 12:22: Sodium 135 L, Potassium 3.6, Chloride 112 H, Carbon Dioxide 16.0 L, Anion Gap 7, BUN 19 H, Creatinine 1.15, Estim Creat Clear Calc 113.87, Est GF R (MDRD) Af Amer 102, Est GFR (MDRD) Non-Af 84, BUN/Creatinine Ratio 16.5, Glucose 189 H, Calcium 8.7 02/28/23 12:50: POC Glucose 182 H 02/28/23 14:21: POC Glucose 155 H 02/28/23 15:40: Sodium 135 L, Potassium 3.3 L, Chloride 111 H, Carbon Dioxide 17.0 L, Anion Gap 7, BUN 18, Creatinine 1.08, Estim Creat Clear Calc 121.25, Est GFR (MDRD) Af Amer 110, Est GFR (MDRD) Non-Af 91, BUN/Creatinine Ratio 16.7, Glucose 141 H, Calcium 8.5 02/28/23 16:11: POC Glucose 132 H 02/28/23 17:40: POC Glucose 130 H 02/28/23 18:49: POC Glucose 113 H 02/28/23 19:46: Sodium 137, Potassium 3.3 L, Chloride 111 H, Carbon Dioxide 19.0 L, Anion Gap 7, BUN 17, Creatinine 0.99, Estim Creat Clear Calc 132.27, Est GFR (MDRD) Af Amer 121, Est GFR (MDRD) Non-Af 100, BUN/Creatinine Ratio 17.2, Glucose 116 H, Calcium 8.5 02/28/23 22:04: POC Glucose 286 H 03/01/23 04:45: WBC 5.5, RBC 4.38 L, Hgb 10.2 L, Hct 32.8 L, MCV 74.9 L, MCH 23.3 L, MCHC 31.1 L D, RDW Std Deviation 41.2, RDW Coeff of Rabia 15.3 H, Plt Count 307, MPV 9.5, Immature Gran % (Auto) 0.400, Neut % (Auto) 60.7, Lymph % (A uto) 28.5, [place] % (Auto) 7.9, Eos % (Auto) 2.0, Baso % (Auto) 0.5, Absolute Neuts (auto) 3.4, Absolute Lymphs (auto) 1.58, Nucleated RBC % 0 03/01/23 04:45: Sodium 133 L, Potassium 3.4 L, Chloride 105, Carbon Dioxide 19.0 L, Anion Gap 9, BUN 12, Creatinine 1.08, Estim Creat Clear Calc 121.25, Est GFR (MDRD) Af Amer 110, Est GFR (MDRD) Non-Af 91, BUN/Creatinine Ratio 11.1, Glucose 404 H, Calcium 8.8, Total Bilirubin 0.90, AST 10 L, ALT 20, Alkaline Phosphatase 145 H, Total Protein 7.2, Albumin 3.7, Globulin 3.5, Albumin/Globulin Ratio 1.1 Rhythm Strip Rhythm Strip: Sinus Tach Rate: 120 Ectopy: None Physical Exam Narrative Seen and examined. Patient readmitted with DKA. Complain of pain/discomfort over lower chest and whole abdomen. Generalized muscle aches of extremities. Nausea has resolved. Insulin drip has been discontinued yesterday Physical exam General: Alert, Oriented x3, Cooperative HEENT: Atraumatic, PERRLA, EOMI, Normocephalic Oral : Oral mucosa dry. Dental caries with broken teeth. No oral/mucosal ulceration. Neck: Supple, No JVD, Negative Carotid Bruits Lungs: Air entry diminished in bilateral lung bases. No crepitation/rhonchi Cardiovascular: Sinus tachycardia, Normal S1, Normal S2, No murmurs Abdomen: Bowel Sounds Present, Soft, no tenderness Non-Distended : No renal angle tenderness. No suprapubic tenderness. Extremities: No edema, Capillary Refill Less than 3 Seconds Skin: No rashes, No breakdown Musculoskeletal: Range of motion intact. Nonspecific tenderness to muscles of extremities. Neurological: Cranial nerves II-XII grossly intact, DTR 2+/4 and Symmetrical, Neuro grossly intact Psych/Mental Status: Flat affect Assessment & Plan Assessment/Plan (1) DKA (diabetic ketoacidoses): PLAN: Plan This is a 22-year-old gentleman with history of recurrent admission for DKA is being admitted for DKA. Patient came to ED for concern of low blood sugar and vomiting but glucose was found to be high in ED 537 with moderate acetone level. Patient had follow with PCP 1 week ago and was found to have glucose in 50s and long-acting insulin dose was decreased. Patient diffuse abdominal pain nausea vomiting all day. No diarrhea. 1.? DKA with high anion gap metabolic acidosis: Patient is being admitted in U. Patient on DKA protocol with IV fluid resuscitation and insulin drip. Bicarb 12, anion gap 19. Moderate acetone level. Magnesium 1.5. Phosphorus normal.The patient has mild leukocytosis due to DKA. 03/01: Leukocytosis has resolved. Anion gap was closed yesterday evening therefore insulin drop was discontinued and changed to Accu-Chek before meals and at bedtime cover with sliding scale Humalog insulin and long-acting insulin. Patient still has mild symptoms of DKA with aches and pains therefore continue IV fluid. 2.? Acute kidney injury prerenal due to hypovolemia/DKA: Admission BUN/Cr 07/13.36, prior baseline creatinine noted to be primarily 0.6- 0.9. Most recent BUN 01/12.19 03/01: K3.4. Phosphorus 1.6. Magnesium 1.6. Mild hypokalemia, hypophosphatemia and hypomagnesemia. Electrolytes are getting replaced. BUNs/creatinine 10/12.08 on baseline. RADHA resolved. 3.? 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 Recent diagnosis of stage II pressure injury left buttock/ cleft area: Nursing care, changing position.? Wound nurse consult.? Wet-to-dry dressing.? Mepilex dressing was applied for protection. 5.? Moderate chronic protein and caloric malnutrition in the context of chronic disease and noncompliance as evidenced by inadequate oral intake: The patient has inadequate oral intake has multiple recurrent admission for DKA, nonadherence to diet and insulin regimen, moderate atrophy of muscles of extremity, loss of subcutaneous fat. I do not agree with the trial court judge documentation of no malnutrition. DVT prophylaxis: On Xarelto Full code Charges/Coding Visit Charges Inpatient E&M: 67194 Subs Hosp L3
[2023-03-01 08:00] LABS: Bedside Glucose 430 mg/dL (74-106)
[2023-03-01] MEDS: Insulin Lispro 100 UNIT/ML INSULN.PEN SC ×4 (08:11→21:46)
[2023-03-01] MEDS: Potassium Chloride Oral Tablet 20 MEQ 40 MEQ PO (08:20)
[2023-03-01] MEDS: Insulin Glargine-YFGN 100 UNIT/ML Pen 30 UNIT SC (08:21)
[2023-03-01] MEDS: Insulin Lispro 100 UNIT/ML INSULN.PEN 17 UNIT SC ×3 (08:21→17:10)
[2023-03-01 08:37] LABS: Magnesium 1.6 mg/dL (1.6-2.6); Phosphorus 1.6 mg/dL (2.5-4.9)
[2023-03-01] MEDS: Na Biphos/Potassium Phosphate PACKET 1 PACKET PO ×3 (09:39→21:37)
[2023-03-01 12:05] LABS: Bedside Glucose 202 mg/dL (74-106)
[2023-03-01 13:22] LABS: Color, Urine Yellow (Yellow); Glucose, Dipstick 1000 mg/dl (Normal); Leukocyte Esterase-Dipstick 500 /ul (Negative); Nitrite-Dipstick Positive (Negative); Occult Blood-Urine 250 /ul (Negative); Protein-Dipstick 500 mg/dl (Negative); Specific Gravity, Urine 1.015 (1.002-1.030); Urine Bilirubin Dipstick Negative (Negative); Urine Clarity Cloudy (Clear); Urine Urobilinogen Normal (Normal)
[2023-03-01 13:25] LABS: Ketone-Dipstick 150 mg/dl (Negative)
[2023-03-01 13:30] LABS: Red Blood Cells-Urine 5-10 SEEN /hpf (0-5); Squamous Epithelial Cells - UA 0-5 SEEN /hpf (0-5); White Blood Cells 50-100 SEEN /hpf (0-5)
[2023-03-01 13:31] LABS: Bacteria 2+ /hpf (None Seen); Mucous, Urine 1+ /hpf (<or=2+); Yeast-Urine 2+ /hpf (None Seen)
[2023-03-01] MEDS: Ceftriaxone 1 GM/50 ML BAG IV (15:35)
[2023-03-01] MEDS: Rivaroxaban 20 MG Tablet PO (17:10)
[2023-03-01 17:56] LABS: Bedside Glucose 167 mg/dL (74-106)
[2023-03-01] MEDS: Acetaminophen 325 MG Tablet 650 MG PO (21:36)
[2023-03-01] MEDS: MELATONIN 3 MG TABLET PO (21:36)
--- NOTE | 2023-03-01 21:51 | EKG12_ITS ---
Test Reason : CP Blood Pressure : / mmHG Vent. Rate : 103 BPM Atrial Rate : 103 BPM P-R Int : 130 ms QRS Dur : 086 ms QT Int : 354 ms P-R-T Axes : 051 063 038 degrees QTc Int : 463 ms Sinus tachycardia Otherwise normal ECG When compared with ECG of 27-FEB-2023 22:00, MANUAL COMPARISON REQUIRED, DATA IS UNCONFIRMED Confirmed by YANE CASTILLO, ROXANNE ([id number]), scientific editor AYESHA VALLE ([id number]) on 03/06/2023 10:34:23 AM Referred By: Confirmed By:ROXANNE CHE MD
[2023-03-02 00:56] LABS: Bedside Glucose 276 mg/dL (74-106)
[2023-03-02 03:15] VITALS: BP 116/67; PULSE 99; RESP 15; TEMP 36.7; O2SAT 100
[2023-03-02 05:00] VITALS: BMI 24.7
[2023-03-02 08:13] VITALS: O2SAT 96
[2023-03-02 08:27] VITALS: BP 111/72; PULSE 105; RESP 16; TEMP 36.6; O2SAT 100
[2023-03-02] MEDS: Insulin Lispro 100 UNIT/ML INSULN.PEN 17 UNIT SC (08:38)
[2023-03-02] MEDS: Insulin Glargine-YFGN 100 UNIT/ML Pen 30 UNIT SC (08:38)
[2023-03-02] MEDS: Pantoprazole Sodium 40 MG Tablet PO (08:49)
[2023-03-02] MEDS: Acetaminophen 325 MG Tablet 650 MG PO (08:49)
[2023-03-02] MEDS: Potassium Chloride Oral Tablet 20 MEQ 40 MEQ PO ×2 (08:51→11:00)
--- NOTE | 2023-03-02 09:30 | DCINST_ITS ---
Discharge Instructions Diet Discharge Diet: 1800 Calorie Control Diet Activity Discharge Activity: Return to Normal Activity Weight Bearing Status: Weight bearing as tolerated Dressing / Incision Call your doctor if you observe: Fever of 101 or Higher, Coldness, Increased Pain, Numbness or Tingling, Change in Color, Inability to urinate, Inability to have a bowel movement, Shortness of breath, Dizziness, Fainting spells, Swelling in the ankles, Chest pain, Prolonged hiccupping, Increased palpitations (irregular heartbeat) and Calf discomfort Follow Up Care When: IN 2 WEEKS Test Results: Test results from this visit will be discussed in further detail at your follow- up appointment, if applicable. Discharge Plan Admission Admit Date/Time: 02/27/23 21:57 Primary Reason for Your Visit: DKA. UTI ruled out. Attending Provider: Tha Uribe Primary Care Provider: Mario Reyes Consulting Providers: Ashley Kapoor Discharge Orders/Prescriptions Prescriptions: New potassium, sodium phosphates 280-160-250 mg Powder In Packet 1 packet PO TID 5 Days Qty: 15 0RF Continued insulin lispro [Humalog KwikPen Insulin] 100 unit/mL insulin pen See Protocol subcut ACHS Protocol: 1. Sliding Scale Insulin Low Dosing Condition: 150-224 mg/dl = 1 unit Condition: 225-299 mg/dl = 2 units Condition: 300-374 mg/dl = 3 units Condition: 375-499 mg/dl = 4 units Condition: Greater than 449 call physician Protocol Text: - Use for Total Daily Dose of Insulin 15-27 units - Thin, elderly, renal patients LOW DOSING ALGORITHM acetaminophen [Tylenol] 325 mg Tablet 325 mg PO Q6H PRN (Reason: Pain) lactase [Lactaid] 3,000 unit Tablet 3,000 unit PO TIDCM Xarelto 20 mg Tablet 20 mg PO DAILY Qty: 30 1RF (DME) OneTouch Verio test strips Strip See Rx Instructions .ROUTE .MEDSUPPLY Rx Instructions: 4x/day (DME) pen needle, diabetic [BD Ultra-Fine Lorin Pen Needle] 32 gauge x 5/32 needle See Rx Instructions .ROUTE .MEDSUPPLY Rx Instructions: As directed (DME) FreeStyle Niru 14 Day Sensor Kit See Rx Instructions .ROUTE .MEDSUPPLY Rx Instructions: As directed Changed insulin lispro 100 unit/mL insulin pen 25 unit subcut TIDAC Qty: 15 0RF Rx Instructions: Hold if glucose less than 130 mg/dl insulin glargine [Lantus Solostar U-100 Insulin] 100 unit/mL (3 mL) insulin pen 40 unit SUBCUT BID Qty: 15 2RF omeprazole 20 mg Tablet,Delayed Release (Dr/Ec) 40 mg PO DAILY 30 Days Qty: 30 2RF Held potassium chloride 20 mEq/15 mL liquid 20 meq PO BID Qty: 1200 0RF Hold Instructions: Hold while taking Neutra-Phos. Referrals / Follow Up: Mario Reyes MD [Primary Care Provider] - Within 1 Week Disposition Disposition (needs filled in before D/C Order can be placed): Home, Self Care
[2023-03-02] MEDS: Insulin Lispro 100 UNIT/ML INSULN.PEN 10 UNIT SC (09:59)
[2023-03-02] MEDS: Ceftriaxone 1 GM/50 ML BAG IV (10:09)
[2023-03-02] MEDS: Insulin Lispro 100 UNIT/ML INSULN.PEN SC (11:14)
[2023-03-02] MEDS: Insulin Lispro 100 UNIT/ML INSULN.PEN 25 UNIT SC (11:14)
[2023-03-02] MEDS: Insulin Glargine-YFGN 100 UNIT/ML Pen 40 UNIT SC (11:15)
[2023-03-02 11:31] LABS: Bedside Glucose 211 mg/dL (74-106)
--- NOTE | 2023-03-02 11:33 | PCM.DC.SUM ---
Providers Date of Admission: 02/27/23 Date of Discharge: 03/02/23 Primary Care Physician: Dr. Mario Reyes MD Reason For Visit: DKA Diagnosis Discharge Diagnosis (1) DKA (diabetic ketoacidoses): Status: Acute Code(s): E11.10 - Type 2 diabetes mellitus with ketoacidosis without coma Plan This is a 22-year-old gentleman with history of recurrent admission for DKA is being admitted for DKA. Patient came to ED for concern of low blood sugar and vomiting but glucose was found to be high in ED 537 with moderate acetone level. Patient had follow with PCP 1 week ago and was found to have glucose in 50s and long-acting insulin dose was decreased. Patient diffuse abdominal pain nausea vomiting all day. No diarrhea. 1.? DKA with high anion gap metabolic acidosis: Patient is being admitted in ICU. Patient on DKA protocol with IV fluid resuscitation and insulin drip. Bicarb 12, anion gap 19. Moderate acetone level. Magnesium 1.5. Phosphorus normal.The patient has mild leukocytosis due to DKA. 03/01: Leukocytosis has resolved. Anion gap was closed yesterday evening therefore insulin drop was discontinued and changed to Accu-Chek before meals and at bedtime cover with sliding scale Humalog insulin and long-acting insulin. Patient still has mild symptoms of DKA with aches and pains therefore continue IV fluid. 03/02: Glucose in BMP 404. Accu-Chek shows 455. Humalog and Lantus insulin dose increased. Repeat glucose 211. Patient sent home on increased dose of Humalog insulin and Lantus insulin. Follow-up PCP. 2.? Acute kidney injury prerenal due to hypovolemia/DKA: Admission BUN/Cr 9/1.36, prior baseline creatinine noted to be primarily 0.6-0.9. Most recent BUN /.19 03/01: K3.4. Phosphorus 1.6. Magnesium 1.6. Mild hypokalemia, hypophosphatemia and hypomagnesemia. Electrolytes are getting replaced. BUNs/creatinine 12/1.08 on baseline. RADHA resolved. 03/02: Patient had dysuria. LE 500. WBC 5200 cells. Bacteria 2+. Urine culture shows mixed positive organisms suggestive of contamination. Patient had 2 days of IV ceftriaxone empirically. No indication for antibiotic treatment. UTI ruled out. 3.? 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 Wound nurse consult.? Wet-to-dry dressing.? Mepilex dressing was applied for protection. 5.? Moderate chronic protein and caloric malnutrition in the context of chronic disease and noncompliance as evidenced by inadequate oral intake: The patient has inadequate oral intake has multiple recurrent admission for DKA, nonadherence to diet and insulin regimen, moderate atrophy of muscles of extremity, loss of subcutaneous fat. 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 DVT prophylaxis: On Xarelto Full code Discharge medication reconciliation done. Discharge follow-up instructions completed. Discharge process discussed with the patient and all questions were answered to patient's satisfaction. Charge home. Total time spent, exact 35 minutes on discharge meds reconciliation, examination, coordination of care with nurses and ancillary staff, review of imaging and blood test and discussion with the patient on follow-up instructions. Medications at Discharge Home Medications insulin lispro 100 unit/mL subcutaneous pen (Humalog KwikPen (U-100) Insulin) See Protocol subcut ACHS DM 07/24/22 acetaminophen 325 mg tablet (Tylenol) 325 mg PO Q6H PRN Pain 01/10/23 lactase 3,000 unit tablet (Lactaid) 3,000 unit PO TIDCM LACTOSE INTOLLERANCE 01/10/23 potassium chloride 20 mEq/15 mL oral liquid 20 meq (15 mL) PO BID #1,200 mL 01/23/23 rivaroxaban 20 mg tablet (Xarelto) 20 mg PO DAILY BLOOD THINNER #30 tabs 01/23/23 blood sugar diagnostic (OneTouch Verio test strips) 02/27/23 flash glucose sensor (FreeStyle Niru 14 Day Sensor kit) 02/27/23 pen needle, diabetic 32 gauge x 5/32 (BD Ultra-Fine Lorin Pen Needle) 02/27/23 insulin glargine 100 unit/mL (3 mL) subcutaneous pen (Lantus Solostar U-100 Insulin) 40 unit (0.4 mL) subcut BID DIABETES #15 mL 03/02/23 insulin lispro 100 unit/mL subcutaneous pen 25 unit (0.25 mL) subcut TIDAC DIABETES #15 mL 03/02/23 omeprazole 20 mg tablet,delayed release 40 mg PO DAILY 30 days #30 tabs 03/02/23 potassium, sodium phosphates 280 mg-160 mg-250 mg oral powder packet 1 packet PO TID 5 days #15 ea 03/02/23 Physical Exam Narrative Seen and examined. Patient DKA symptoms resolved. Nausea vomiting and abdominal soreness has resolved. Patient had mild burning micturition yesterday and empirically was started on IV antibiotic. UA shows 50?100 WBC but urine culture shows mixed organisms consistent with contamination. Physical exam General: Alert, Oriented x3, Cooperative HEENT: Atraumatic, PERRLA, EOMI, Normocephalic Oral : Oral mucosa moist. Dental caries with broken teeth. No oral/mucosal ulceration. Neck: Supple, No JVD, Negative Carotid Bruits Lungs: Air entry diminished in bilateral lung bases. No crepitation/rhonchi Cardiovascular: Sinus tachycardia resolved , Normal S1, Normal S2, No murmurs Abdomen: Bowel Sounds Present, Soft, no tenderness Non-Distended : No renal angle tenderness. No suprapubic tenderness. Extremities: No edema, Capillary Refill Less than 3 Seconds Skin: No rashes, No breakdown Musculoskeletal: Range of motion intact. Nonspecific tenderness to muscles of extremities. Neurological: Cranial nerves II-XII grossly intact, DTR 2+/4 and Symmetrical, Neuro grossly intact Psych/Mental Status: Flat affect Weight / BMI Weight Weight: 187 lb 9.814 oz Body Mass Index (BMI) 24.7 ABG / Lab / Microbiology Data Result Diagrams: 03/01/23 04:45 03/01/23 04:45 Laboratory: Laboratory Results - last 24 hr 03/01/23 11:45: POC Glucose 202 H 03/01/23 13:00: Urine Color Yellow, Urine Clarity Cloudy, Urine pH 6.0, Ur Specific Krypton 1.015, Urine Protein 500 H, Urine Glucose (UA) 1000 H, Urine Ketones 150 A*, Urine Occult Blood 250 H, Urine Nitrite Positive H, Urine Bilirubin Negative, Urine Urobilinogen Normal, Ur Leukocyte Esterase 500 H, Urine RBC 5-10 SEEN, Urine WBC 50-100 SEEN, Ur Squamous Epith Cells 0-5 SEEN, Urine Bacteria 2+, Urine Mucus 1+, Urine Yeast 2+ 03/01/23 16:55: POC Glucose 167 H 03/01/23 21:45: POC Glucose 276 H 03/02/23 10:59: POC Glucose 211 H Microbiology: Microbiology 03/01/23 13:00 Urine, Clean Catch Urine Culture - Final Mixed Gram Positive Organisms D/C Instructions Discharge Diet: 1800 Calorie Control Diet Weight Bearing Status: Weight bearing as tolerated Call your doctor if you observe: Fever of 101 or Higher, Coldness, Increased Pain, Numbness or Tingling, Change in Color, Inability to urinate, Inability to have a bowel movement, Shortness of breath, Dizziness, Fainting spells, Swelling in the ankles, Chest pain, Prolonged hiccupping, Increased palpitations (irregular heartbeat) and Calf discomfort When: IN 2 WEEKS Meaningful Use Info Meaningful Use Diagnoses (Choose all that apply): None applicable Discharge Plan Admission Admit Date/Time: 02/27/23 21:57 Primary Reason for Your Visit: DKA. UTI ruled out. Attending Provider: Tha Uribe Primary Care Provider: Mario Reyes Consulting Providers: Ashley Kapoor Discharge Orders/Prescriptions Prescriptions: New potassium, sodium phosphates 280-160-250 mg Powder In Packet 1 packet PO TID 5 Days Qty: 15 0RF Continued insulin lispro [Humalog KwikPen Insulin] 100 unit/mL insulin pen See Protocol subcut ACHS Protocol: 1. Sliding Scale Insulin Low Dosing Condition: 150-224 mg/dl = 1 unit Condition: 225-299 mg/dl = 2 units Condition: 300-374 mg/dl = 3 units Condition: 375-499 mg/dl = 4 units Condition: Greater than 449 call physician Protocol Text: - Use for Total Daily Dose of Insulin 15-27 units - Thin, elderly, renal patients LOW DOSING ALGORITHM acetaminophen [Tylenol] 325 mg Tablet 325 mg PO Q6H PRN (Reason: Pain) lactase [Lactaid] 3,000 unit Tablet 3,000 unit PO TIDCM Xarelto 20 mg Tablet 20 mg PO DAILY Qty: 30 1RF (DME) OneTouch Verio test strips Strip See Rx Instructions .ROUTE .MEDSUPPLY Rx Instructions: 4x/day (DME) pen needle, diabetic [BD Ultra-Fine Lorin Pen Needle] 32 gauge x 5/32 needle See Rx Instructions .ROUTE .MEDSUPPLY Rx Instructions: As directed (DME) FreeStyle Niru 14 Day Sensor Kit See Rx Instructions .ROUTE .MEDSUPPLY Rx Instructions: As directed Changed insulin lispro 100 unit/mL insulin pen 25 unit subcut TIDAC Qty: 15 0RF Rx Instructions: Hold if glucose less than 130 mg/dl insulin glargine [Lantus Solostar U-100 Insulin] 100 unit/mL (3 mL) insulin pen 40 unit SUBCUT BID Qty: 15 2RF omeprazole 20 mg Tablet,Delayed Release (Dr/Ec) 40 mg PO DAILY 30 Days Qty: 30 2RF Held potassium chloride 20 mEq/15 mL liquid 20 meq PO BID Qty: 1200 0RF Hold Instructions: Hold while taking Neutra-Phos. Referrals / Follow Up: Mario Reyes MD [Primary Care Provider] - Within 1 Week Disposition Disposition (needs filled in before D/C Order can be placed): Home, Self Care Charges/Coding Visit Charges Inpatient E&M: 45039 Disch Hosp >30min
[2023-03-02 11:52] VITALS: BP 111/72; PULSE 105; RESP 16; TEMP 36.6; O2SAT 100
--- NOTE | 2023-03-02 12:31 | NURSING ---
Aide relayed message that patient was feeling dizzy. went to check blood sugar and sugar was 80. Gave patient orange juice and alex crackers. Will recheck glucose within the hour.
[2023-03-02 12:51] LABS: Bedside Glucose 80 mg/dL (74-106)
[2023-03-02 13:15] LABS: Bedside Glucose 466 mg/dL (74-106)
[2023-03-02 13:15] LABS: Bedside Glucose 458 mg/dL (74-106)
--- NOTE | 2023-03-02 13:34 | CASEMGMT ---
VERONA FONTANEZ NOTE: Pt being discharged home. VERONA FONTANEZ to room. Pt sitting up in recliner chair. He is aware thee is a new rx to be picked up @ [facility]. He states his grandma will be taking him home and they can stop @ [facility] to picker feeder his new rx. He states he has been trying to reach his grandma to let her know to come pick him up but he has not reached her yet. He did talk to his mom and states, 'I hope she tells my grandma before she falls back asleep. He states he will continue to try and reach his grandma. He denies having other discharge needs at this time. Ena MONTEZ RN, CM
[2023-03-02 13:40] LABS: Bedside Glucose 83 mg/dL (74-106)
--- NOTE | 2023-03-02 16:25 | NURSING ---
1319 This RN rechecked patient's blood sugar. It was 83. Informed Dr. Uribe of blood sugar level, he said that it was good ad he can still go home.
--- NOTE | 2023-03-05 12:55 | CASEMGMT ---
VERONA FONTANEZ: Call received from VERONA Byrnes CM with [facility]. Per Soniya, three referrals have been sent this year for pt to have case management services from [facility] but they have not been able to contact the pt as he does not answer his phone or return calls. Per Soniya, they will continue to attempt to reach out to patient and assist as able with care coordination services. Eden Myers RN CM
== END 2023-03-02 15:39 | disposition home or self-care (01) | DRG 420 ==
LOC: ED 21:44 → ICU 22:19 → PCU 03-01 14:09
PROVIDERS: Admitting Provider Family Medicine; Emergency Provider Emergency Medicine; PCP Internal Medicine; Visit Provider Internal Medicine
DX: E10.10 Type 1 diabetes mellitus with ketoacidosis without coma (principal); E83.39 Other disorders of phosphorus metabolism; N17.9 Acute kidney failure, unspecified; L89.322 Pressure ulcer of left buttock, stage 2; Z79.4 Long term (current) use of insulin; E73.9 Lactose intolerance, unspecified; K21.9 Gastro-esophageal reflux disease without esophagitis; E87.1 Hypo-osmolality and hyponatremia; E87.6 Hypokalemia; E86.1 Hypovolemia; E83.42 Hypomagnesemia; R30.0 Dysuria; Z91.119 Patient's noncompliance with dietary regimen due to unspecified reason; Z91.148 Patient's other noncompliance with medication regimen for other reason; Z68.24 Body mass index [BMI] 24.0-24.9, adult; Z79.01 Long term (current) use of anticoagulants; Z86.711 Personal history of pulmonary embolism
CPT/HCPCS: 36415; 80048; 80053; 81001; 82009; 82803; 82962; 83735; 84100; 85025; 87086; 87088; 93005; 97802; 99282; J7030; A4216; J2405; J7799

== ENCOUNTER 2023-04-10 09:37 | Inpatient (IN) | payer MEDICAID, SELFPAY ==
[2023-04-10] VITALS (19 sets, daily range): BP systolic 96–136; BP diastolic 43–88; PULSE 105–129; RESP 12–37; TEMP 35.6–36.6; O2SAT 97–100; BMI 25.9; BMI 24.5
--- NOTE | 2023-04-10 09:54 | EDS_ITS ---
HPI History of Present Illness Chief Complaint: Nausea/Vomiting Detail of Chief Complaint: Nausea and vomiting that started last evening, glucometer greater than 525 Informant: patient and EMS Onset/Context/Timing Onset: Yesterday Context: Sudden Onset Timing: Continuous Quality: Nausea and vomiting Location: GI Current Severity: Severe Maximum Severity: Severe Worsened by: Suspected DKA Relieved by: Nothing Associated Symptoms Associated Symptoms: Polyuria, polydipsia, positive ketones Narrative Narrative: Patient is a 22-year-old type I diabetic who also has history of malnutrition, pulmonary emboli, pleural effusion, pericardial effusion and hypokalemia who presented by ambulance because of nausea vomiting. He is mentation is slow and abnormal. Paramedics stated their glucometer read greater than 525. They also informed that he normally does not want to come to the emergency department. He is not his normal vigorous self. Patient is presently vomiting. He nodded yes no to most questions. He nodded no to fever or chills. He does report blurred vision. He denied sore throat. He denied chest pain. He endorsed shortness of breath. He denied abdominal pain but did endorse nausea and vomiting. He also endorsed polyuria and polydipsia. He endorsed positive ketone test at home. He has not noted any new skin lesions. 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 Ulcer of leg, chronic Wound of left lower extremity Home Medications insulin lispro 100 unit/mL subcutaneous pen (Humalog KwikPen (U-100) Insulin) See Protocol subcut ACHS DM 07/24/22 [History Last Taken Unknown] acetaminophen 325 mg tablet (Tylenol) 325 mg PO Q6H PRN Pain 01/10/23 [History Last Taken 01/09/23] lactase 3,000 unit tablet (Lactaid) 3,000 unit PO TIDCM LACTOSE INTOLLERANCE 01/10/23 [History Last Taken Unknown] potassium chloride 20 mEq/15 mL oral liquid 20 meq (15 mL) PO BID #1,200 mL 01/23/23 [Rx Last Taken Unknown] rivaroxaban 20 mg tablet (Xarelto) 20 mg PO DAILY BLOOD THINNER #30 tabs 01/23/23 [Rx Last Taken Unknown] blood sugar diagnostic (OneTouch Verio test strips) 02/27/23 [History Last Taken Unknown] flash glucose sensor (FreeStyle Niru 14 Day Sensor kit) 02/27/23 [History Last Taken Unknown] pen needle, diabetic 32 gauge x 5/32 (BD Ultra-Fine Lorin Pen Needle) 02/27/23 [History Last Taken Unknown] insulin glargine 100 unit/mL (3 mL) subcutaneous pen (Lantus Solostar U-100 Insulin) 40 unit (0.4 mL) subcut BID DIABETES #15 mL 03/02/23 [Rx Last Taken Unknown] insulin lispro 100 unit/mL subcutaneous pen 25 unit (0.25 mL) subcut TIDAC DIABETES #15 mL 03/02/23 [Rx Last Taken Unknown] omeprazole 20 mg tablet,delayed release 40 mg PO DAILY 30 days #30 tabs 03/02/23 [Rx Last Taken Unknown] potassium, sodium phosphates 280 mg-160 mg-250 mg oral powder packet 1 packet PO TID 5 days #15 ea 03/02/23 [Rx Last Taken Unknown] Allergy/AdvReac Type Severity Reaction Status Date / Time Milk Containing Products AdvReac Diarrhea Verified 02/27/23 19:22 (Dairy) [Milk Containing Products] Family History Father Polysubstance overdose Patient father young secondary to OD. Mother Iron deficiency anemia Other Asthma CVA (cerebral vascular accident) Diabetes Hypertension Thyroid disorder Surgical History H/O right knee surgery History of surgery on extremity Hx of knee surgery Social History housing: other details: Lives with his grandmother, aunt and mother. Smoking Status: Never smoker alcohol intake: current alcohol intake frequency: a few times a month substance use type: does not use ROS ROS ED Review of Systems ROS Unobtainable: due to mental status and other Details: Actively vomiting and in DKA Constitutional Constitutional ED: Reports sweats; Denies chills, fever(s) or subjective Eyes Eyes: Reports blurry vision bilateral; Denies change in vision or diplopia ENT ENT ED: Denies rhinorrhea or sore throat Cardiovascular Cardiovascular: Reports palpitations; Denies chest pain Respiratory/Chest Respiratory/Chest: Reports dyspnea; Denies cough Gastrointestinal Gastrointestinal: Reports nausea and vomiting; Denies abdominal pain Musculoskeletal Musculoskeletal: Denies arthralgias or myalgias Integumentary Denies rash Neurologic Neurologic: Reports paresthesias and weakness; Denies headache(s) Psychiatric Psychiatric: Reports anxiety Endocrine Endocrinology: Reports polydipsia and polyuria Hematologic/Lymphatic Hematologic/Lymphatic: Reports systems reviewed and no addt'l complaints, except as documented EXAM Physical Exam Const Vital Signs: 04/10/23 10:11 04/10/23 11:08 Temperature 96.2 F L 96.1 F L Temperature Source Temporal Temporal Pulse Rate 123 H 107 H Respiratory Rate 37 H 26 H Blood Pressure 136/71 H 96/50 L Blood Pressure Mean 92 65 Pulse Ox 100 100 Oxygen Delivery Method Room Air Nasal Cannula Oxygen Flow Rate (L/min) 2 Positive well nourished and well developed Constitutional Narrative: Patient is breathing 50 times a minute. He has ketotic odor to his breath. His mentation is not normal for patient. General Appearance ED: well developed and pallor; Negative for cyanotic, diaphoretic or NAD HEENT Reports TM's clear and dry mucous membranes HEENT Narrative: Posterior pharynx without erythema or exudate. Uvula midline. 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 Effort and Inspection: retractions Cardio S1 normal heart sound and S2 normal heart sound Rate: tachycardic and other Other Details: Patient does have peaked T waves which raises concern for hyperkalemia. GI non-tender, non-distended and no masses; Negative for hepatosplenomegaly Auscultation: hypoactive bowel sounds Palpation: soft Back/Spine no CVA tenderness Neuro oriented x3, CN's II-XII intact bilaterally and no sensory deficits noted Sensorium / Orientation: Negative for alert Psych Mood & Affect: depressed Skin no rashes or lesions noted and no wounds General Skin Exam: pallor; Negative for jaundice MDM MDM MDM Narrative Medical decision making narrative: Clinically patient is in DKA. Will obtain EKG to assess for cardiac ischemia and changes to suggest hyperkalemia. DKA order set was initiated. Fluids were ordered. Insulin to be started after 1 L of normal saline. VBG was ordered. This was obtained to assess acid-base status and determine if patient may require bicarb. History & Record Review Additional record(s) reviewed:: Prior inpatient record, Prior ED visit and Prior labs Lab Data Attestation: I reviewed the patient's lab results. Lab results narrative: White count is elevated 27,000 with demargination. Patient's H&H 11.4 and 39.9. Suspect white count is due to the nausea vomiting and stress from DKA comprehensive metabolic panel reveals hyperkalemia with a potassium of 5.9, sodium is 126 which is due to pseudohyponatremia from glucose of 974. BUN and creatinine are 24 and 1.63. GFR is 56. CO2 is 5 with an anion gap of 32. Serum ketones are large. Labs: Laboratory Results - last 24 hr 04/10/23 04/10/23 04/10/23 09:50 09:50 09:50 WBC 27.0 H RBC 4.98 Hgb 11.4 L Hct 39.9 L MCV 80.1 MCH 22.9 L MCHC 28.6 L RDW Std Deviation 46.5 H RDW Coeff of Rabia 16.3 H Plt Count 707 H MPV 10.0 Immature Gran % (Auto) 1.700 H Neut % (Auto) 78.3 H Lymph % (Auto) 11.5 L [place] % (Auto) 7.8 Eos % (Auto) 0.1 Baso % (Auto) 0.6 Absolute Neuts (auto) 21.1 H Absolute Lymphs (auto) 3.10 Nucleated RBC % 0 Differential Comment SCANNED Diff Path Review May foll Sodium 126 L Potassium 5.9 H Chloride 89 L Carbon Dioxide 5.0 L* Anion Gap 32 H BUN 24 H Creatinine 1.63 H Estim Creat Clear Calc 78.02 Est GFR (MDRD) Af Amer 68 Est GFR (MDRD) Non-Af 56 L BUN/Creatinine Ratio 14.7 Glucose 974 H* Calcium 10.1 Total Bilirubin 0.80 AST 14 L ALT 29 Alkaline Phosphatase 183 H Total Protein 8.1 Albumin 3.9 Globulin 4.2 Albumin/Globulin Ratio 0.9 Acetone Level LARGE H ABG Data Attestation: I personally reviewed and interpreted this ABG as follows: Interpretation: VBG reveals a marked metabolic acidosis with a pH of 6.86, PCO2 14.9, PO2 74.3, bicarb 2.7 and base excess of greater than -30. Episode to 79.7. ABG results: ABG 04/10/23 09:58 Specimen Type MARILYNN VBG pH 6.87 L* VBG pO2 74 H VBG Total CO2 < 5 L VBG O2 Sat (Calc) 80 H VBG Base Excess < -30 L POC Mix VBG pCO2 Pt Tmp 14.9 L* Crit Call To/Read Back Yes Blood Gas Notified Whom ungerer Blood Gas Notified Time 09:59:52 Radiography Chest X-Ray - ED: 1 View and Read by ED Physician (C view chest x-ray independent reviewed interpreted by me at 1123. There is no evidence of pneumothorax or effusion. Right subclavian line line is in proper position. Cardiac silhouette and size normal. Lung parenchyma is normal. [place] structures are unremarkable.) EKG Initial EKG: Attestation: I personally reviewed and interpreted this EKG as follows: Interpretation: Sinus Tachycardia (Rate is 129. WV interval 138 ms, QRS duration 102 ms. QT duration 310 ms. [place] is normal. I suspect patient has hyperkalemia. We will need to review prior EKG determine if his prominent T waves are a new finding.) Prior: Changed (T waves are more prominent today which raises concern for hyperkalemia.) Treatment and Re-Evaluation :: Because patient has prominent T waves and concern for hyper kalemia patient received 1 amp of bicarb IV push and infusion of bicarb. Patient's mental status deteriorated rapidly. He became uncooperative. Patient pulled out the peripheral lines out. Since patient will need multiple lines he received initially 240 mg of ketamine IM for placement of central line. He still was combative. He received an additional 240 mg of ketamine which is approximately 5 mg/kg. Patient does not have capacity to obtain consent and is in critical condition. Consent was implied by presentation to the emergency department Patient was prepped draped sterile manner. All participants in room were masked and wearing a cap. Sterile CMS criteria was adhered to. Patient was prepped up sterile manner. The area was anesthetized 1% lidocaine. Right subclavian line was cannulated successfully first attempt on the way in. Using Seldinger technique 7.5 [place] triple-lumen was placed. Blood was aspirated from all 3 ports. Bicarb was administered through the distal port. Patient is presently on insulin drip, saline wide open and bicarb drip. Dr. Pb Momin the polisher aluminum made aware of patient. He was made aware of his presentation, treatment and plan Procedures Other Procedures Procedure(s): Right subclavian line as outlined under the intervention/ED course of the medical record. Critical Care Time Critical Care Time: Yes Critical care time (excluding procedures): 30-74 minutes (42), Including time spent: (History, physical, documentation, review of prior records, interpretation of laboratory results initiation of therapy for DKA), Discussing w/Consultants, Arranging Admission or Transfer and Performing Direct Patient Care at Bedside Discharge Plan Dx/Rx/DC Orders Clinical Impression: Diabetic keto-acidosis, Acute metabolic encephalopathy, Acute hyperkalemia, Severe dehydration, Nausea & vomiting, Sinus tachycardia, Acute kidney insufficiency, Pseudohyponatremia, Leukocytosis Disposition Disposition: Acute Care [facility]
[2023-04-10 10:01] LABS: Absolute Neutrophil Count 21.1 X10^3/uL (2.0-7.7); Basophil# 0.15 X10^3/uL; Basophil% 0.6 % (0-1); Eosinophil# 0.02 X10^3/uL; Eosinophils% 0.1 % (0-5); Hematocrit 39.9 % (40-54); Hemoglobin 11.4 g/dL (13.0-16.5); Lymphocyte % 11.5 % (19-41); Mean Corp Hgb Conc 28.6 g/dL (32-36); Mean Corpuscular Hgb 22.9 pg (27.0-32.0); Mean Corpuscular Volume 80.1 fL (80-94); Monocyte# 2.11 X10^3/uL; Monocyte% 7.8 % (0-10); NRBC Flagged by Analyzer 0 % (0-5); Neutrophil # 21.12 X10^3/uL (2.7-7.7); Neutrophil % 78.3 % (47-70); POSITIVE DIFFERENTIAL YES; Platelet Count 707 K/mm3 (150-450); RBC Distribution Width CV 16.3 % (11.6-14.6); RBC Distribution Width SD 46.5 fl (35.1-43.9); Red Blood Count 4.98 M/mm3 (4.6-6.2)
[2023-04-10] MEDS: 0.9% Normal Saline 1,000 ML 999 ML IV ×2 (10:02→10:55)
[2023-04-10 10:17] LABS: Differential Indicated SCAN CRITERIA MET
[2023-04-10 10:19] LABS: Blood Gas Specimen Type VEN; VBG BASE EXCESS < -30 mmol/L (-1.0-3.5); VBG PO2 74 mmHg (25-40); VBG SO2 80 % (50-70); VBG TCO2 < 5 mmol/L (23-33); VBG pCO2 14.9 mmHg (41-51); VBG pH 6.87 (7.32-7.42)
[2023-04-10 10:25] LABS: ALB/GLOB Ratio 0.9 RATIO (0.9-2.4); AST(SGOT) 14 U/L (15-37); Alanine Aminotransfer ALT/SGPT 29 U/L (16-61); Albumin, Serum 3.9 g/dL (3.2-5.0); Alkaline Phosphatase 183 U/L (45-117); Anion Gap 32 (5-15); BUN 24 mg/dL (7-18); BUN/Creat Ratio 14.7 RATIO (10-20); Calcium,Total 10.1 mg/dL (8.5-10.1); Chloride 89 mmol/L (98-107); Creatinine, Serum 1.63 mg/dL (0.70-1.30); EST Glomerular Filtration Rate 56 mL/min (>60); Est Glom Filt Rate - Afr Amer 68 mL/min (>60); Estimated Creatinine Clearance 78.02 ml/min; Globulin 4.2 g/dL (2.2-4.2); Glucose 974 mg/dL (74-106); Potassium 5.9 mmol/L (3.5-5.1); Protein, Total 8.1 g/dL (6.4-8.2); Sodium Level 126 mmol/L (136-145)
[2023-04-10 10:28] LABS: Differential Comment SCANNED
--- NOTE | 2023-04-10 10:49 | RAD_ITS ---
STUDY: X-RAY CHEST REASON FOR EXAM: Male, 22 years old. Central line placement TECHNIQUE: Single AP portable view of the chest. COMPARISON: Comparison is made with prior study of January 20, 2023. FINDINGS: A right-sided subclavian line has been placed. The tip is at the junction of the superior vena cava and right atrium. EKG electrodes are seen. The lungs are clear and expanded. There is no demonstrated pleural abnormality. Normal size heart. Normal mediastinum and rudi. Normal visualized pulmonary arteries. Normal visualized aortic arch and descending thoracic aorta. Normal visualized thoracic spine. Normal visualized ribs, clavicles, and shoulders. There is no demonstrated abnormality of the visualized soft tissue structures of the upper abdomen. RAD/CXR for Line Placement IMPRESSION: The tip of the right central line is at the junction of the superior vena cava and right atrium. The lungs are clear. Electronically Signed: Willy Callahan MD at 12:22 EDT ,
[2023-04-10] MEDS: Sodium Bicarbonate 8.4% 50 ML Syringe 50 MEQ IV (10:53)
--- NOTE | 2023-04-10 10:59 | NURSING ---
HOSPITALIST PAGED DR Adore IRWIN PAGED
--- NOTE | 2023-04-10 11:00 | NURSING ---
DR QUYNH REYES
--- NOTE | 2023-04-10 11:09 | NURSING ---
ICU KITE DA, ACUTE METABOLIC ENCEPHALOPATHY
--- NOTE | 2023-04-10 11:17 | HP.PCM.HOS_ITS ---
HPI - General General Date of Admission: 04/10/23 Date of Service: 04/10/23 Chief Complaint: Altered mental status HPI Narrative SHIRA STEPHENSON, is a 22 M past medical history single for diabetes mellitus type 1 with multiple admissions for DKA who was brought to the emergency department with altered mental status. Patient symptoms had apparently started a day prior to him getting admitted. He did experience nausea vomiting with blood glucose levels greater than 500. Was seen and assessed in the emergency department and assessment of diabetic ketoacidosis was made treatment initiated per protocol patient admitted to the intensive care unit for further manage [facility] Medical History Asthma Diabetes mellitus type 1 femur surgery GERD (gastroesophageal reflux disease) Hypokalemia Hypokalemia Kidney disease Lower extremity edema Nausea and vomiting Non-smoker Noncompliance Noncompliance with diabetes treatment Nonhealing surgical wound Psychosocial problem Severe protein-calorie malnutrition Sinus tachycardia seen on edge stitcher Ulcer of leg, chronic Wound of left lower extremity Home Medications insulin lispro 100 unit/mL subcutaneous pen (Humalog KwikPen (U-100) Insulin) See Protocol subcut ACHS DM 07/24/22 [History Last Taken Unknown] acetaminophen 325 mg tablet (Tylenol) 325 mg PO Q6H PRN Pain 01/10/23 [History Last Taken 01/09/23] lactase 3,000 unit tablet (Lactaid) 3,000 unit PO TIDCM LACTOSE INTOLLERANCE 01/10/23 [History Last Taken Unknown] potassium chloride 20 mEq/15 mL oral liquid 20 meq (15 mL) PO BID #1,200 mL 01/23/23 [Rx Last Taken Unknown] rivaroxaban 20 mg tablet (Xarelto) 20 mg PO DAILY BLOOD THINNER #30 tabs 01/23/23 [Rx Last Taken Unknown] blood sugar diagnostic (OneTouch Verio test strips) 02/27/23 [History Last Taken Unknown] flash glucose sensor (FreeStyle Niru 14 Day Sensor kit) 02/27/23 [History Last Taken Unknown] pen needle, diabetic 32 gauge x 5/32 (BD Ultra-Fine Lorin Pen Needle) 02/27/23 [History Last Taken Unknown] insulin glargine 100 unit/mL (3 mL) subcutaneous pen (Lantus Solostar U-100 Insulin) 40 unit (0.4 mL) subcut BID DIABETES #15 mL 03/02/23 [Rx Last Taken Unknown] insulin lispro 100 unit/mL subcutaneous pen 25 unit (0.25 mL) subcut TIDAC DIABETES #15 mL 03/02/23 [Rx Last Taken Unknown] omeprazole 20 mg tablet,delayed release 40 mg PO DAILY 30 days #30 tabs 03/02/23 [Rx Last Taken Unknown] potassium, sodium phosphates 280 mg-160 mg-250 mg oral powder packet 1 packet PO TID 5 days #15 ea 03/02/23 [Rx Last Taken Unknown] Allergy/AdvReac Type Severity Reaction Status Date / Time Milk Containing Products AdvReac Diarrhea Verified 02/27/23 19:22 (Dairy) [Milk Containing Products] Family History Father Polysubstance overdose Patient father young secondary to OD. Mother Iron deficiency anemia Other Asthma CVA (cerebral vascular accident) Diabetes Hypertension Thyroid disorder Surgical History H/O right knee surgery History of surgery on extremity Hx of knee surgery Social History housing: other details: Lives with his grandmother, aunt and mother. Smoking Status: Never smoker alcohol intake: current alcohol intake frequency: a few times a month substance use type: does not use ROS Review of Systems ROS Unobtainable: due to encephalopathy Vital Signs Vital Signs Vital Signs: 04/10/23 10:11 04/10/23 11:08 Temperature 96.2 F L 96.1 F L Temperature Source Temporal Temporal Pulse Rate 123 H 107 H Respiratory Rate 37 H 26 H Blood Pressure 136/71 H 96/50 L Blood Pressure Mean 92 65 Pulse Ox 100 100 Oxygen Delivery Method Room Air Nasal Cannula Oxygen Flow Rate (L/min) 2 Weight Weight: 88.7 kg Body Mass Index (BMI) 25.9 Physical Exam Narrative GENERAL: Somnolent HEENT: Atraumatic; EYES; Anicteric, Normal Conjunctiva NECK; supple, normal thyroid, RESPIRATORY: Diminished to auscultation, tachypneic CARDIOVASCULAR:? Regular S1 S2, tachycardic GI:? soft, normoactive bowel sounds, : No Renal angle tenderness; EXTREMITIES:? No edema, no clubbing, MUSCULOSKELETAL:? no muscle wasting NEURO:?No lateralizing signs SKIN:? No Rash PSYCH; somnolent Results Lab / Micro Data Result Diagrams: 04/10/23 09:50 04/10/23 09:50 Labs: Laboratory Results - last 24 hr 04/10/23 09:50: WBC 27.0 H, RBC 4.98, Hgb 11.4 L, Hct 39.9 L, MCV 80.1, MCH 22.9 L, MCHC 28.6 L, RDW Std Deviation 46.5 H, RDW Coeff of Rabia 16.3 H, Plt Count 707 H, MPV 10.0, Immature Gran % (Auto) 1.700 H, Neut % (Auto) 78.3 H, Lymph % (Auto) 11.5 L, [place] % (Auto) 7.8, Eos % (Auto) 0.1, Baso % (Auto) 0.6, Absolute Neuts (auto) 21.1 H, Absolute Lymphs (auto) 3.10, Nucleated RBC % 0, Differential Comment SCANNED, Diff Path Review May foll 04/10/23 09:50: Sodium 126 L, Potassium 5.9 H, Chloride 89 L, Carbon Dioxide 5.0 L*, Anion Gap 32 H, BUN 24 H, Creatinine 1.63 H, Estim Creat Clear Calc 78.02, Est GFR (MDRD) Af Amer 68, Est GFR (MDRD) Non-Af 56 L, BUN/Creatinine Ratio 14.7, Glucose 974 H*, Calcium 10.1, Total Bilirubin 0.80, AST 14 L, ALT 29, Alkaline Phosphatase 183 H, Total Protein 8.1, Albumin 3.9, Globulin 4.2, Albumin/Globulin Ratio 0.9 04/10/23 09:50: Acetone Level LARGE H ABG Data ABG results: ABG 04/10/23 09:58 Specimen Type MARILYNN VBG pH 6.87 L* VBG pO2 74 H VBG Total CO2 < 5 L VBG O2 Sat (Calc) 80 H VBG Base Excess < -30 L POC Mix VBG pCO2 Pt Tmp 14.9 L* Crit Call To/Read Back Yes Blood Gas Notified Whom ungerer Blood Gas Notified Time 09:59:52 Assessment & Plan Assessment/Plan (1) Diabetic keto-acidosis: (2) Acute metabolic encephalopathy: PLAN: Plan Patient is a 22-year-old gentleman with history of diabetes mellitus type 1 who was brought to the emergency department with altered mental status as well as tachypnea 1.? Acute metabolic encephalopathy ? Secondary to diabetic ketoacidosis.? Patient has been admitted to the intensive care unit for management of underlying etiology 2.? Diabetic ketoacidosis ? Patient managed with aggressive IV fluid resuscitation correction of electrolytes IV insulin with every 4 BMP ordered 3Severe metabolic acidosis ? Secondary to patient DKA patient did receive bicarb in the ED repeat labs ordered for monitoring 4.? Leukocytosis ? Chest x-ray did not reveal any evidence of pneumonia do suspect stress reaction, daily CBC with differential ordered for monitor 5.? Hyperkalemia ? Secondary to patient's hyperglycemia do expect rapid improvement in potassium levels with treatment of patient's underlying DKA ?6.? Recent history of DVT and pulmonary embolism ? Patient is on systemic anticoagulation with rivaroxaban held started on therapeutic Lovenox Critical time spent in the patient's overall evaluation,decision-making process, review of diagnostic data, adjustment of management, discussion with other providers, nursing nursing and ancillary staff involved in patient's care documentation, 80 minutes minutes Charges/Coding Multi Select Codes Hospitalists' Procedures Procedures: 32345 Critial Care 1st Hr and 65501 Critial Care Addl 30 Min
--- NOTE | 2023-04-10 11:19 | NURSING ---
Dr. Harper notified of sepsis alert. Pt not a sepsis alert per Dr. Harper. Pt in DKA.
--- NOTE | 2023-04-10 11:21 | NURSING ---
CV ICU 201
[2023-04-10 11:30] LABS: Bedside Glucose > 500 mg/dL (74-106)
[2023-04-10] MEDS: 0.9% Normal Saline 1,000 ML 500 ML IV (13:34)
[2023-04-10 13:35] LABS: Anion Gap 33 (5-15); BUN 24 mg/dL (7-18); Calcium,Total 9.1 mg/dL (8.5-10.1); Chloride 94 mmol/L (98-107); Creatinine, Serum 1.71 mg/dL (0.70-1.30); EST Glomerular Filtration Rate 53 mL/min (>60); Est Glom Filt Rate - Afr Amer 65 mL/min (>60); Estimated Creatinine Clearance 74.37 ml/min; Glucose 954 mg/dL (74-106); Sodium Level 131 mmol/L (136-145)
[2023-04-10] MEDS: 0.9% Saline Lock 10 ML Syringe IV ×3 (13:37→19:32)
[2023-04-10 13:51] LABS: Bacteria 0 SEEN /hpf (None Seen); Mucous, Urine 0 SEEN /hpf (<or=2+); White Blood Cells 0 SEEN /hpf (0-5)
[2023-04-10 13:56] LABS: Color, Urine Yellow (Yellow); Glucose, Dipstick 1000 mg/dl (Normal); Leukocyte Esterase-Dipstick Negative /ul (Negative); Nitrite-Dipstick Negative (Negative); Occult Blood-Urine 25 /ul (Negative); Protein-Dipstick 30 mg/dl (Negative); Specific Gravity, Urine 1.015 (1.002-1.030); Urine Bilirubin Dipstick Negative (Negative); Urine Clarity Clear (Clear); Urine Urobilinogen Normal (Normal)
[2023-04-10 14:01] LABS: Ketone-Dipstick 150 mg/dl (Negative)
[2023-04-10 14:02] LABS: Red Blood Cells-Urine 0-5 SEEN /hpf (0-5); Squamous Epithelial Cells - UA 0-5 SEEN /hpf (0-5)
[2023-04-10 14:30] LABS: Pathologist Review Reviewed
[2023-04-10 14:30] LABS: Glucose 756 mg/dL (74-106)
[2023-04-10 15:00] LABS: Glucose 573 mg/dL (74-106)
[2023-04-10 15:34] LABS: VBG Bicarbonate 3 mmol/L (22-26)
[2023-04-10] MEDS: 0.9% Normal Saline 1,000 ML 325 ML IV (15:39)
[2023-04-10 16:02] LABS: Bedside Glucose 486 mg/dL (74-106)
[2023-04-10 16:16] LABS: Anion Gap 28 (5-15); BUN 22 mg/dL (7-18); BUN/Creat Ratio 15.5 RATIO (10-20); Calcium,Total 9.1 mg/dL (8.5-10.1); Chloride 103 mmol/L (98-107); Creatinine, Serum 1.42 mg/dL (0.70-1.30); EST Glomerular Filtration Rate 66 mL/min (>60); Est Glom Filt Rate - Afr Amer 80 mL/min (>60); Estimated Creatinine Clearance 89.56 ml/min; Glucose 486 mg/dL (74-106); Potassium 3.9 mmol/L (3.5-5.1); Sodium Level 139 mmol/L (136-145)
[2023-04-10 16:49] LABS: Bedside Glucose 473 mg/dL (74-106)
[2023-04-10] MEDS: Potassium Chloride 20mEq/100mL 20 MEQ/100 ML IV.SOLN. 100 MEQ IV BOLUS ×2 (17:21→18:16)
[2023-04-10 17:46] LABS: Bedside Glucose 421 mg/dL (74-106)
[2023-04-10 18:49] LABS: Bedside Glucose 386 mg/dL (74-106)
[2023-04-10] MEDS: Ondansetron 4 MG/2 ML Vial IV (19:32)
[2023-04-10 20:04] LABS: Anion Gap 22 (5-15); BUN 20 mg/dL (7-18); BUN/Creat Ratio 14.8 RATIO (10-20); Calcium,Total 9.1 mg/dL (8.5-10.1); Chloride 105 mmol/L (98-107); Creatinine, Serum 1.35 mg/dL (0.70-1.30); EST Glomerular Filtration Rate 70 mL/min (>60); Est Glom Filt Rate - Afr Amer 85 mL/min (>60); Estimated Creatinine Clearance 94.21 ml/min; Glucose 413 mg/dL (74-106); Potassium 3.8 mmol/L (3.5-5.1); Sodium Level 139 mmol/L (136-145)
[2023-04-10] MEDS: KCL 20MEQ in 0.45%NS 20 MEQ/1,000 ML IV.SOLN. 175 MEQ IV ×2 (22:22→22:30)
[2023-04-10 22:34] LABS: Bedside Glucose 409 mg/dL (74-106)
[2023-04-10 22:34] LABS: Bedside Glucose 367 mg/dL (74-106)
[2023-04-10 23:15] LABS: Bedside Glucose 377 mg/dL (74-106)
[2023-04-11] VITALS (18 sets, daily range): BP systolic 106–129; BP diastolic 51–75; PULSE 91–139; RESP 11–21; TEMP 36.2–37.1; O2SAT 97–100; BMI 25.4
[2023-04-11 00:19] LABS: Anion Gap 16 (5-15); BUN 18 mg/dL (7-18); BUN/Creat Ratio 12.8 RATIO (10-20); Calcium,Total 8.8 mg/dL (8.5-10.1); Chloride 108 mmol/L (98-107); Creatinine, Serum 1.41 mg/dL (0.70-1.30); EST Glomerular Filtration Rate 67 mL/min (>60); Est Glom Filt Rate - Afr Amer 81 mL/min (>60); Glucose 349 mg/dL (74-106); Potassium 3.3 mmol/L (3.5-5.1); Sodium Level 143 mmol/L (136-145)
[2023-04-11] MEDS: Potassium Chloride 20mEq/100mL 20 MEQ/100 ML IV.SOLN. 100 MEQ IV BOLUS ×2 (01:17→02:30)
[2023-04-11 02:34] LABS: Bedside Glucose 370 mg/dL (74-106)
[2023-04-11 02:34] LABS: Bedside Glucose 338 mg/dL (74-106)
[2023-04-11 04:32] LABS: Absolute Lymphocyte Count 0.91 X10^3/uL (0.83-4.51); Absolute Neutrophil Count 7.8 X10^3/uL (2.0-7.7); Basophil# 0.01 X10^3/uL; Basophil% 0.1 % (0-1); Eosinophil# 0.03 X10^3/uL; Eosinophils% 0.3 % (0-5); Hematocrit 26.4 % (40-54); Hemoglobin 8.5 g/dL (13.0-16.5); Lymphocyte # 0.91 X10^3/ul (0.83-4.51); Lymphocyte % 9.3 % (19-41); Mean Corpuscular Hgb 22.6 pg (27.0-32.0); Mean Platelet Vol. 8.5 fl (6.2-12.0); Monocyte# 0.98 X10^3/uL; NRBC Flagged by Analyzer 0 % (0-5); Neutrophil # 7.77 X10^3/uL (2.7-7.7); Neutrophil % 79.5 % (47-70); Platelet Count 354 K/mm3 (150-450); RBC Distribution Width SD 42.3 fl (35.1-43.9); Red Blood Count 3.76 M/mm3 (4.6-6.2); White Blood Count 9.8 K/mm3 (4.4-11.0)
[2023-04-11 04:36] LABS: Bedside Glucose 249 mg/dL (74-106)
[2023-04-11 04:36] LABS: Bedside Glucose 261 mg/dL (74-106)
[2023-04-11 04:36] LABS: Bedside Glucose 255 mg/dL (74-106)
[2023-04-11 04:41] LABS: Mean Corpuscular Volume 70.2 fL (80-94)
[2023-04-11 04:42] LABS: Mean Corp Hgb Conc 32.2 g/dL (32-36)
[2023-04-11 04:45] LABS: Anion Gap 10 (5-15); BUN 18 mg/dL (7-18); BUN/Creat Ratio 14.5 RATIO (10-20); Calcium,Total 8.2 mg/dL (8.5-10.1); Chloride 110 mmol/L (98-107); Creatinine, Serum 1.24 mg/dL (0.70-1.30); EST Glomerular Filtration Rate 77 mL/min (>60); Est Glom Filt Rate - Afr Amer 94 mL/min (>60); Estimated Creatinine Clearance 102.56 ml/min; Glucose 249 mg/dL (74-106); Potassium 3.2 mmol/L (3.5-5.1); Sodium Level 145 mmol/L (136-145)
--- NOTE | 2023-04-11 07:13 | PCM.PN.HOSP ---
Reason for Visit Reason for Visit: Diagnoses Type 2 diabetes mellitus with ketoacidosis without coma (04/10/23) Metabolic encephalopathy (04/10/23) Subjective Subjective Patient is a 22-year-old gentleman with history of diabetes mellitus type 1 with recurrent admissions for DKA presented with nausea vomiting and altered mental status and assessment of DKA was made admitted to the intensive care unit where patient has since been managed Objective Data Objective Data Vital Signs: Vital Signs Temp Pulse Resp BP Pulse Ox O2 Del Method O2 Flow Rate 97.8 F 113 H 16 121/53 H 100 Room Air 2 04/11/23 07:00 04/11/23 07:00 04/11/23 07:00 04/11/23 07:00 04/11/23 07:00 04/11/23 07:00 04/10/23 11:30 Oxygen Flow Rate (L/min) 2 Oxygen Delivery Method Room Air Weight: 87.3 kg Body Mass Index (BMI) 25.4 Intake & Output: Intake and Output for Last 24 Hours 04/09/23 04/10/23 04/11/23 23:59 23:59 23:59 Intake Total 5637.74 / 5641.94 1369.4 / 1369.4 Output Total 2400 / 2400 1400 / 1400 Balance 3237.74 / 3241.94 -30.6 / -30.6 Lab / Micro Data Result Diagrams: 04/11/23 04:15 04/11/23 04:15 Labs: Laboratory Results - last 24 hr 04/10/23 09:50: WBC 27.0 H, RBC 4.98, Hgb 11.4 L, Hct 39.9 L, MCV 80.1, MCH 22.9 L, MCHC 28.6 L, RDW Std Deviation 46.5 H, RDW Coeff of Rabia 16.3 H, Plt Count 707 H, MPV 10.0, Immature Gran % (Auto) 1.700 H, Neut % (Auto) 78.3 H, Lymph % (Auto) 11.5 L, [place] % (Auto) 7.8, Eos % (Auto) 0.1, Baso % (Auto) 0.6, Absolute Neuts (auto) 21.1 H, Absolute Lymphs (auto) 3.10, Nucleated RBC % 0, Differential Comment SCANNED, Diff Path Review Reviewed 04/10/23 09:50: Sodium 126 L, Potassium 5.9 H, Chloride 89 L, Carbon Dioxide 5.0 L*, Anion Gap 32 H, BUN 24 H, Creatinine 1.63 H, Estim Creat Clear Calc 78.02, Est GFR (MDRD) Af Amer 68, Est GFR (MDRD) Non-Af 56 L, BUN/Creatinine Ratio 14.7, Glucose 974 H*, Calcium 10.1, Total Bilirubin 0.80, AST 14 L, ALT 29, Alkaline Phosphatase 183 H, Total Protein 8.1, Albumin 3.9, Globulin 4.2, Albumin/Globulin Ratio 0.9 04/10/23 09:50: Acetone Level LARGE H 04/10/23 11:10: POC Glucose > 500 H* 04/10/23 12:07: Sodium Cancelled, Potassium Cancelled, Chloride Cancelled, Carbon Dioxide Cancelled, Anion Gap Cancelled, BUN Cancelled, Creatinine Cancelled, Estim Creat Clear Calc Cancelled, Est GFR (MDRD) Af Amer Cancelled, Est GFR (MDRD) Non-Af Cancelled, BUN/Creatinine Ratio Cancelled, Glucose Cancelled, Calcium Cancelled 04/10/23 12:07: Sodium 131 L, Potassium 6.0 H*, Chloride 94 L, Carbon Dioxide 4.0 L*, Anion Gap 33 H, BUN 24 H, Creatinine 1.71 H, Estim Creat Clear Calc 74.37, Est GFR (MDRD) Af Amer 65, Est GFR (MDRD) Non-Af 53 L, BUN/Creatinine Ratio 14.0, Glucose 954 H*, Calcium 9.1 04/10/23 13:40: Glucose 756 H* 04/10/23 13:44: Urine Color Yellow, Urine Clarity Clear, Urine pH 5.0, Ur Specific Verdi 1.015, Urine Protein 30 H, Urine Glucose (UA) 1000 H, Urine Ketones 150 A*, Urine Occult Blood 25 H, Urine Nitrite Negative, Urine Bilirubin Negative, Urine Urobilinogen Normal, Ur Leukocyte Esterase Negative, Urine RBC 0-5 SEEN, Urine WBC 0 SEEN, Ur Squamous Epith Cells 0-5 SEEN, Urine Bacteria 0 SEEN, Urine Mucus 0 SEEN 04/10/23 14:35: Glucose 573 H* 04/10/23 15:35: POC Glucose 486 H* 04/10/23 15:45: Sodium 139, Potassium 3.9, Chloride 103, Carbon Dioxide 8.0 L*, Anion Gap 28 H, BUN 22 H, Creatinine 1.42 H, Estim Creat Clear Calc 89.56, Est GFR (MDRD) Af Amer 80, Est GFR (MDRD) Non-Af 66, BUN/Creatinine Ratio 15.5, Glucose 486 H*, Calcium 9.1 04/10/23 16:30: POC Glucose 473 H* 04/10/23 17:27: POC Glucose 421 H 04/10/23 18:31: POC Glucose 386 H 04/10/23 19:37: POC Glucose 409 H 04/10/23 19:40: Sodium 139, Potassium 3.8, Chloride 105, Carbon Dioxide 12.0 L, Anion Gap 22 H, BUN 20 H, Creatinine 1.35 H, Estim Creat Clear Calc 94.21, Est GFR (MDRD) Af Amer 85, Est GFR (MDRD) Non-Af 70, BUN/Creatinine Ratio 14.8, Glucose 413 H, Calcium 9.1 04/10/23 21:06: POC Glucose 367 H 04/10/23 22:21: POC Glucose 370 H 04/10/23 22:57: POC Glucose 377 H 04/10/23 23:55: Sodium 143, Potassium 3.3 L, Chloride 108 H, Carbon Dioxide 19.0 L, Anion Gap 16 H, BUN 18, Creatinine 1.41 H, Estim Creat Clear Calc 90.20, Est GFR (MDRD) Af Amer 81, Est GFR (MDRD) Non-Af 67, BUN/Creatinine Ratio 12.8, Glucose 349 H, Calcium 8.8 04/10/23 23:55: POC Glucose 338 H 04/11/23 01:19: POC Glucose 261 H 04/11/23 02:19: POC Glucose 255 H 04/11/23 03:03: POC Glucose 249 H 04/11/23 04:15: Sodium 145, Potassium 3.2 L, Chloride 110 H, Carbon Dioxide 25.0, Anion Gap 10, BUN 18, Creatinine 1.24, Estim Creat Clear Calc 102.56, Est GFR (MDRD) Af Amer 94, Est GFR (MDRD) Non-Af 77, BUN/Creatinine Ratio 14.5, Glucose 249 H, Calcium 8.2 L 04/11/23 04:15: WBC 9.8, RBC 3.76 L, Hgb 8.5 L, Hct 26.4 L, MCV 70.2 L D, MCH 22.6 L, MCHC 32.2 D, RDW Std Deviation 42.3, RDW Coeff of Rabia 17.0 H, Plt Count 354, MPV 8.5, Immature Gran % (Auto) 0.800, Neut % (Auto) 79.5 H, Lymph % (Auto) 9.3 L, [place] % (Auto) 10.0, Eos % (Auto) 0.3, Baso % (Auto) 0.1, Absolute Neuts (auto) 7.8 H, Absolute Lymphs (auto) 0.91, Nucleated RBC % 0 ABG Data ABG results: ABG 04/10/23 09:58 Specimen Type MARILYNN VBG pH 6.87 L* VBG pO2 74 H VBG HCO3 3 L VBG Total CO2 < 5 L VBG O2 Sat (Calc) 80 H VBG Base Excess < -30 L POC Mix VBG pCO2 Pt Tmp 14.9 L* Crit Call To/Read Back Yes Blood Gas Notified Whom loera Blood Gas Notified Time 09:59:52 Radiography Diagnostic Testing: Radiology Impression Chest X-Ray 04/10/23 10:49 IMPRESSION: The tip of the right central line is at the junction of the superior vena cava and right atrium. The lungs are clear. Electronically Signed: Willy Callahan MD at 12:22 EDT Reading Location ID and State: [facility] / [place] , Service support , Physical Exam Narrative GENERAL: Awake and communicative HEENT: Atraumatic; EYES; Anicteric, Normal Conjunctiva NECK; supple, normal thyroid, RESPIRATORY: Diminished to auscultation, CARDIOVASCULAR:? Regular S1 S2, tachycardic GI:? soft, normoactive bowel sounds, : No Renal angle tenderness; EXTREMITIES:? No edema, no clubbing, MUSCULOSKELETAL:? no muscle wasting NEURO:?No lateralizing signs SKIN:? No Rash PSYCH; flat affect Assessment & Plan Assessment/Plan (1) Diabetic keto-acidosis: (2) Acute metabolic encephalopathy: PLAN: Plan Patient is a 22-year-old gentleman with history of diabetes mellitus type 1 who was brought to the emergency department with altered mental status as well as tachypnea 1.? Acute metabolic encephalopathy ? Secondary to diabetic ketoacidosis.? Patient has been admitted to the intensive care unit for management of underlying etiology ? 04/01/2023 patient level of sensorium improving with treatment of underlying condition 2.? Diabetic ketoacidosis ? Patient managed with aggressive IV fluid resuscitation correction of electrolytes IV insulin with every 4 BMP ordered ? 04/11/2023; patient anion gap as of 04/11/2023 at 0415 for stent repeat BMP ordered for further eval 3. Severe metabolic acidosis ? Secondary to patient DKA patient did receive bicarb in the ED repeat labs ordered for monitoring 4.? Leukocytosis ? Chest x-ray did not reveal any evidence of pneumonia do suspect stress reaction, daily CBC with differential ordered for monitor 5.? Hyperkalemia ? Secondary to patient's hyperglycemia do expect rapid improvement in potassium levels with treatment of patient's underlying DKA ?6.? Recent history of DVT and pulmonary embolism ? Patient is on systemic anticoagulation with rivaroxaban held started on therapeutic Lovenox Critical time spent in the patient's overall evaluation,decision-making process, review of diagnostic data, adjustment of management, discussion with other providers, nursing nursing and ancillary staff involved in patient's care documentation, 50 minutes minutes Charges/Coding Procedures Hospitalists Procedures: [id number] [facility] Care 1st Hr
[2023-04-11] MEDS: KCL 20MEQ in 0.45%NS 20 MEQ/1,000 ML IV.SOLN. 175 MEQ IV (07:19)
[2023-04-11 08:41] LABS: Anion Gap 7 (5-15); BUN 16 mg/dL (7-18); BUN/Creat Ratio 14.4 RATIO (10-20); Calcium,Total 8.1 mg/dL (8.5-10.1); Chloride 110 mmol/L (98-107); Creatinine, Serum 1.11 mg/dL (0.70-1.30); EST Glomerular Filtration Rate 88 mL/min (>60); Est Glom Filt Rate - Afr Amer 106 mL/min (>60); Estimated Creatinine Clearance 114.57 ml/min; Glucose 223 mg/dL (74-106); Sodium Level 145 mmol/L (136-145)
[2023-04-11 10:16] LABS: Bedside Glucose 185 mg/dL (74-106)
--- NOTE | 2023-04-11 11:07 | CASEMGMT ---
Addendum entered by Maddi Reyna 04/11/23 17:03: Call to pt's GM to inform her pt has been transferred to IN3, room 304. Addendum entered by Maddi Reyna 04/11/23 16:33: VERONA FONTANEZ spoke w/pt's GM, Ines, and discussed having meeting w/her, pt, and [facility] staff to discuss goals/coordination of care for pt. Ines is agreeable to coming in tomorrow @ 1 PM for the meeting. Call placed to VERONA Mercer, and left re: same. Call also placed to VERONA Villalobos w/[facility] and she was made aware and pt made aware. Ines states she is aware pt is to be taking his long-acting insulin @ 11:30 AM and 11:30 PM and he often forgets and so she reminds him. She states he has been having what she calls it as being bipolar, where he will be fine one minute and the next minute he is screaming at them. She states he often has an attitude with them about everything. She states [facility] but that he had only went once. She states she has a car now and can take him, but now he doesn't want to go and she doesn't know why. She also reports that when he had started throwing up the other day that she told him he needed to come to the hospital and he got an attitude and was refusing to come stating, They're just going to tell me I'm in DKA. She voices she is aware of importance of him coming to the hospital when he starts having symptoms of DKA to prevent it from getting worse. Original Note: RN?CM?BUILDING CONSTRUCTION INSPECTOR?CM?to room to meet with patient for initial transition planning/care coordination?assessment.?RN?CM?introduced self and role at [facility].? Pt voices understanding and consents to?assessment?at this time.? Pt resting in bed in no distress at this time.? Pt is A/O at this time and answers all questions appropriately.?? Care providers, pharmacy, and demographics verified/updated at this time. PCP: Dr Reyes. Pt states he did go to the appt 03/23 to get established as a new pt. He states he thinks so when inquired if he has an upcoming appt scheduled w/him. Call placed to Dr Reyes's office to inquire about next scheduled appt. Per marketing secretary, the last time pt was in was 03/08. She states pt did not go to the appt on 03/23, stating he called and rescheduled it for Jun 27 with ANGEL Rico, and this would be an establishment of care appt. VERONA FONTANEZ scheduled hospital f/u visit for pt w/Serena Correa for next April 18, @ 3:40 PM. This was entered into pt's discharge plan. Pt made aware. He was also made aware this is a hospital f/u visit and discussed importance of keeping the establishment of care appt w/Serena in June as well. He voices understanding. Specialists: ARCHANA Raymond-muffle operator @ [facility]. Pt states he did go to the last appt scheduled and has a f/u appt scheduled but does not know when it is. He states his GM would have that info, as she helps to manage appts for him. Call placed to Dr Raymond's office and spoke w/flight crew scheduler. Pt's last appt w/Dr Raymond was in February and his next scheduled appt is May 23 @ 4:20 PM. This was placed in pt's discharge plan. Pt states [facility], but does not often go, stating, It's hard to go stating d/t his GM's work/sleep schedule. Inquired about pt using [address] for transportation to these appts. He states he has not arranged that for these appt's and states I'm not sure why not. Preferred Pharmacy: [facility] Pres[facility] Benef[facility]:?yes Meds/Insulin: Pt states he has all of his medications and insulins needed. Pt states he checks his BS's 3-4 x's/day and has been taking all of his insulin and medication as prescribed. He states he typically takes his long-acting insulin 11:30 AM and 11:30 PM. He states he has no idea why his BS's became elevated again, causing him to be hospitalized. Living Will/HPOA:?Pt does not currently have LW/HCPOA and states would like his GM to be his POA and states would be willing to complete this while @ [facility]. Tessy JUNIOR, made aware. LNOK: GM, Ines. Mom, Ines. Brother. Aunt/Sobia Living Arrangements: Lives in a 2-story home w/12 steps to the basement w/railing. Pt states is indep w/ADL's. He states he manages his medications and his GM assists at times. Transportation:?GM or through [place]. DME:States has the following DME:?[employer]M system w/all supplies needed. ?Pt states no need for further DME at this time.? HHC/SNF: No hx of either. Discussed HHC, but pt states he is certain his aunt will not allow anyone to come into their home. Pt Link: Pt has been signed on with Pt Link in the past. Pt states he does not know if it was helpful or not, stating that he often forgot about entering the information in. He states he would be agreeable to trying it again. VERONA FONTANEZ spoke w/VERONA Mercer, re: Pt Link. He verifies that pt does well w/entering info in for awhile and then stops using it when the ipad dies. He states pt still has the ipad, but has not used it since 02/06 and it is currently in deactivation state. Pt had made arrangements w/Ruslan to return the ipad after last admission, but that he did not end up bringing it in. Ruslan states he has been unsuccessful w/getting in contact w/pt since. VERONA FONTANEZ asked pt about this and he states he has not had the chance to bring it in. Pt again states he would be agreeable to trying Pt Link again. He states the choir teacher is in the basement, where he stays, and that he would be willing to charge it up when he returns home. Ruslan made aware and can reactivate it when pt is discharged. Meeting: Discussed with pt the option of arranging a meeting with him, his GM, and [facility] staff to discuss coordination of his care. Pt voices agreement to this. Call placed to pt's GM and VM left for her to return call. Pt wishes to return home and states has no concerns with going home at time of discharge.??CM?to follow for any further discharge planning/needs.? Pt voices no further concerns/needs at this time.? Advised pt to ask for?CM?if any further questions/concerns/needs arise.? Voices understanding. PLAN:??Home w/support of GM and Pt Link Ena BSN?RN?CM
[2023-04-11] MEDS: Rivaroxaban 20 MG Tablet PO (11:54)
[2023-04-11] MEDS: Potassium Chloride Oral Soln 20 MEQ/15 ML UDC PO ×2 (11:54→21:59)
[2023-04-11] MEDS: Pantoprazole Sodium 40 MG Tablet PO (11:54)
[2023-04-11] MEDS: Insulin Glargine-YFGN 100 UNIT/ML Pen 40 UNIT SC ×2 (12:02→21:59)
[2023-04-11] MEDS: Insulin Lispro 100 UNIT/ML INSULN.PEN 25 UNIT SC (12:03)
[2023-04-11] MEDS: Insulin Lispro 100 UNIT/ML INSULN.PEN SC ×2 (12:04→22:00)
[2023-04-11 12:30] LABS: Bedside Glucose 216 mg/dL (74-106)
[2023-04-11 12:30] LABS: Bedside Glucose 160 mg/dL (74-106)
[2023-04-11 12:31] LABS: Bedside Glucose 233 mg/dL (74-106)
[2023-04-11] MEDS: LACTASE 9000 UNIT PO ×2 (12:49→17:38)
[2023-04-11] MEDS: Na Biphos/Potassium Phosphate PACKET 1 PACKET PO ×2 (14:48→21:59)
--- NOTE | 2023-04-11 15:25 | CASEMGMT ---
Social Work SW received referral for advance directives. SW met with pt and discussed health care POA. Pt is requesting to complete at this time. SW assisted pt in completing HCPOA. Pt naming his grandmother Ines Carlton as HCPOA. Of note, pt mother's name is Ines Carlton and pt has named her as alternate. Pt does not wish to complete living will at this time. Copy placed on pt chart and original given to pt. BRENT Frank
[2023-04-11 16:53] LABS: Bedside Glucose 71 mg/dL (74-106)
[2023-04-11] MEDS: 0.9% Saline Lock 10 ML Syringe IV (17:39)
[2023-04-11] MEDS: KCL 20MEQ in 0.45%NS 20 MEQ/1,000 ML IV.SOLN. 150 MEQ IV ×2 (17:39→23:43)
[2023-04-11 17:51] LABS: Anion Gap 7 (5-15); BUN 10 mg/dL (7-18); BUN/Creat Ratio 10.2 RATIO (10-20); Calcium,Total 8.5 mg/dL (8.5-10.1); Chloride 106 mmol/L (98-107); Creatinine, Serum 0.98 mg/dL (0.70-1.30); EST Glomerular Filtration Rate 101 mL/min (>60); Est Glom Filt Rate - Afr Amer 122 mL/min (>60); Estimated Creatinine Clearance 129.77 ml/min; Glucose 103 mg/dL (74-106); Potassium 2.8 mmol/L (3.5-5.1); Sodium Level 141 mmol/L (136-145)
[2023-04-11 22:20] LABS: Bedside Glucose 229 mg/dL (74-106)
[2023-04-12 02:00] VITALS: BP 108/63; PULSE 86; RESP 16; TEMP 36.7; O2SAT 92
[2023-04-12 05:00] LABS: Absolute Lymphocyte Count 1.22 X10^3/uL (0.83-4.51); Absolute Neutrophil Count 4.1 X10^3/uL (2.0-7.7); Basophil# 0.02 X10^3/uL; Basophil% 0.3 % (0-1); Eosinophil# 0.07 X10^3/uL; Eosinophils% 1.2 % (0-5); Hematocrit 28.8 % (40-54); Hemoglobin 9.2 g/dL (13.0-16.5); Lymphocyte # 1.22 X10^3/ul (0.83-4.51); Lymphocyte % 20.8 % (19-41); Mean Corp Hgb Conc 31.9 g/dL (32-36); Mean Corpuscular Hgb 23.5 pg (27.0-32.0); Mean Corpuscular Volume 73.7 fL (80-94); Mean Platelet Vol. 9.4 fl (6.2-12.0); Monocyte# 0.42 X10^3/uL; Monocyte% 7.2 % (0-10); NRBC Flagged by Analyzer 0 % (0-5); Neutrophil # 4.11 X10^3/uL (2.7-7.7); Neutrophil % 70.2 % (47-70); Platelet Count 231 K/mm3 (150-450); RBC Distribution Width CV 17.4 % (11.6-14.6); RBC Distribution Width SD 46.5 fl (35.1-43.9); Red Blood Count 3.91 M/mm3 (4.6-6.2); White Blood Count 5.9 K/mm3 (4.4-11.0)
[2023-04-12 05:41] LABS: Anion Gap 8 (5-15); BUN 8 mg/dL (7-18); Calcium,Total 7.8 mg/dL (8.5-10.1); Chloride 111 mmol/L (98-107); EST Glomerular Filtration Rate 129 mL/min (>60); Est Glom Filt Rate - Afr Amer 156 mL/min (>60); Estimated Creatinine Clearance 158.97 ml/min; Glucose 79 mg/dL (74-106); Potassium 3.2 mmol/L (3.5-5.1); Sodium Level 142 mmol/L (136-145)
[2023-04-12] MEDS: Na Biphos/Potassium Phosphate PACKET 1 PACKET PO (05:41)
[2023-04-12] MEDS: Acetaminophen 325 MG Tablet 650 MG PO (05:44)
[2023-04-12] MEDS: KCL 20MEQ in 0.45%NS 20 MEQ/1,000 ML IV.SOLN. 150 MEQ IV ×2 (05:58→08:32)
[2023-04-12 06:14] LABS: Bedside Glucose 86 mg/dL (74-106)
[2023-04-12 08:28] VITALS: BP 127/80; PULSE 115; RESP 18; TEMP 37.2; O2SAT 99
[2023-04-12] MEDS: Potassium Chloride Oral Soln 20 MEQ/15 ML UDC PO (08:32)
[2023-04-12] MEDS: Pantoprazole Sodium 40 MG Tablet PO (08:33)
[2023-04-12] MEDS: Rivaroxaban 20 MG Tablet PO (08:33)
[2023-04-12] MEDS: Insulin Glargine-YFGN 100 UNIT/ML Pen 40 UNIT SC (08:34)
[2023-04-12] MEDS: LACTASE 9000 UNIT PO ×2 (08:34→11:39)
[2023-04-12] MEDS: Potassium Chloride Oral Tablet 20 MEQ 40 MEQ PO (10:09)
--- NOTE | 2023-04-12 10:18 | PN.HOSP_ITS ---
Reason for Visit Reason for Visit: Diagnoses Type 2 diabetes mellitus with ketoacidosis without coma (04/10/23) Metabolic encephalopathy (04/10/23) Subjective Subjective Patient seen overall clinical condition continues to improve. Plan is for andrez davis to be assessed for possible discharge Objective Data Objective Data Vital Signs: Vital Signs Temp Pulse Resp BP Pulse Ox O2 Del Method O2 Flow Rate 98.9 F 115 H 18 127/80 H 99 Room Air 2 04/12/23 08:28 04/12/23 08:28 04/12/23 08:28 04/12/23 08:28 04/12/23 08:28 04/12/23 08:28 04/10/23 11:30 Oxygen Flow Rate (L/min) 2 Oxygen Delivery Method Room Air Weight: 87.3 kg Body Mass Index (BMI) 25.4 Intake & Output: Intake and Output for Last 24 Hours 04/10/23 04/11/23 04/12/23 23:59 23:59 23:59 Intake Total 5637.74 / 5641.94 2781.8 / 3381.8 1600 / 1600 Output Total 2400 / 2400 2850 / 3450 975 / 975 Balance 3237.74 / 3241.94 -68.2 / -68.2 625 / 625 Lab / Micro Data Result Diagrams: 04/12/23 04:24 04/12/23 04:24 Labs: Laboratory Results - last 24 hr 04/11/23 04:22: POC Glucose 233 H 04/11/23 06:11: POC Glucose 216 H 04/11/23 12:01: POC Glucose 160 H 04/11/23 16:28: POC Glucose 71 L 04/11/23 17:10: Sodium 141, Potassium 2.8 L, Chloride 106, Carbon Dioxide 28.0, Anion Gap 7, BUN 10, Creatinine 0.98, Estim Creat Clear Calc 129.77, Est GFR (MDRD) Af Amer 122, Est GFR (MDRD) Non-Af 101, BUN/Creatinine Ratio 10.2, Glucose 103, Calcium 8.5 04/11/23 21:58: POC Glucose 229 H 04/12/23 04:24: WBC 5.9, RBC 3.91 L, Hgb 9.2 L, Hct 28.8 L, MCV 73.7 L, MCH 23.5 L, MCHC 31.9 L, RDW Std Deviation 46.5 H, RDW Coeff of Rabia 17.4 H, Plt Count 231, MPV 9.4, Immature Gran % (Auto) 0.300, Neut % (Auto) 70.2 H, Lymph % (Auto) 20.8, [place] % (Auto) 7.2, Eos % (Auto) 1.2, Baso % (Auto) 0.3, Absolute Neuts (auto) 4.1, Absolute Lymphs (auto) 1.22, Nucleated RBC % 0 04/12/23 04:24: Sodium 142, Potassium 3.2 L, Chloride 111 H, Carbon Dioxide 23.0, Anion Gap 8, BUN 8, Creatinine 0.80, Estim Creat Clear Calc 158.97, Est GFR (MDRD) Af Amer 156, Est GFR (MDRD) Non-Af 129, BUN/Creatinine Ratio 10.0, Glucose 79, Calcium 7.8 L 04/12/23 05:39: POC Glucose 86 Physical Exam Narrative GENERAL: Awake and communicative HEENT: Atraumatic; EYES; Anicteric, Normal Conjunctiva NECK; supple, normal thyroid, RESPIRATORY: Diminished to auscultation, CARDIOVASCULAR:? Regular S1 S2, tachycardic GI:? soft, normoactive bowel sounds, : No Renal angle tenderness; EXTREMITIES:? No edema, no clubbing, MUSCULOSKELETAL:? no muscle wasting NEURO:?No lateralizing signs SKIN:? No Rash PSYCH; flat affect Assessment & Plan Assessment/Plan (1) Diabetic keto-acidosis: (2) Acute metabolic encephalopathy: PLAN: Plan Patient is a 22-year-old gentleman with history of diabetes mellitus type 1 who was brought to the emergency department with altered mental status as well as tachypnea 1.? Acute metabolic encephalopathy ? Secondary to diabetic ketoacidosis.? Patient has been admitted to the intensive care unit for management of underlying etiology ? 04/01/2023 patient level of sensorium improving with treatment of underlying condition 2.? Diabetic ketoacidosis ? Patient managed with aggressive IV fluid resuscitation correction of electrolytes IV insulin with every 4 BMP ordered ? 04/11/2023; patient anion gap as of 04/11/2023 at 0415 for stent repeat BMP ordered for further eval 3. Severe metabolic acidosis ? Secondary to patient DKA patient did receive bicarb in the ED repeat labs ordered for monitoring 4.? Leukocytosis ? Chest x-ray did not reveal any evidence of pneumonia do suspect stress reacti on, daily CBC with differential ordered for monitor 5.? Hyperkalemia ? Secondary to patient's hyperglycemia do expect rapid improvement in potassium levels with treatment of patient's underlying DKA ? Resolved ?6.? Recent history of DVT and pulmonary embolism ? Patient is on systemic anticoagulation with rivaroxaban held started on therapeutic Lovenox 7. Acute kidney injury ? Improved with rehydration 8. Anemia - Secondary to chronic disorder monitoring H&H and transfuse if patient becomes symptomatic or hemoglobin falls below 7 9. Hypokalemia -Corrected per protocol Time spent in the patient's overall evaluation,decision-making process, review of diagnostic data, adjustment of management, discussion with other providers, nursing nursing and ancillary staff involved in patient's care documentation, 35 minutes minutes Charges/Coding Visit Charges Inpatient E&M: 45166 Subs Hosp L2
--- NOTE | 2023-04-12 10:19 | DS.PCM_ITS ---
Providers Date of Admission: 04/10/23 Date of Discharge: 04/12/23 Primary Care Physician: Dr. Mario Reyes MD Reason For Visit: DKA Diagnosis Discharge Diagnosis (1) Diabetic keto-acidosis: Status: Acute Code(s): E11.10 - Type 2 diabetes mellitus with ketoacidosis without coma (2) Acute metabolic encephalopathy: Status: Acute Code(s): G93.41 - Metabolic encephalopathy Plan Patient is a 22-year-old gentleman with history of diabetes mellitus type 1 who was brought to the emergency department with altered mental status as well as tachypnea 1.? Acute metabolic encephalopathy ? Secondary to diabetic ketoacidosis.? Patient has been admitted to the intensive care unit for management of underlying etiology ? 04/01/2023 patient level of sensorium improving with treatment of underlying condition 2.? Diabetic ketoacidosis ? Patient managed with aggressive IV fluid resuscitation correction of electrolytes IV insulin with every 4 BMP ordered ? 04/11/2023; patient anion gap as of 04/11/2023 at 0415 for stent repeat BMP ordered for further eval 3. Severe metabolic acidosis ? Secondary to patient DKA patient did receive bicarb in the ED repeat labs ordered for monitoring 4.? Leukocytosis ? Chest x-ray did not reveal any evidence of pneumonia do suspect stress reaction, daily CBC with differential ordered for monitor 5.? Hyperkalemia ? Secondary to patient's hyperglycemia do expect rapid improvement in potassium levels with treatment of patient's underlying DKA ? Resolved ?6.? Recent history of DVT and pulmonary embolism ? Patient is on systemic anticoagulation with rivaroxaban held started on ther apeutic Lovenox 7. Acute kidney injury ? Improved with rehydration 8. Anemia - Secondary to chronic disorder monitoring H&H and transfuse if patient becomes symptomatic or hemoglobin falls below 7 9. Hypokalemia -Corrected per protocol Time spent in the patient's overall evaluation,decision-making process, review of diagnostic data, adjustment of management, discussion with other providers, nursing nursing and ancillary staff involved in patient's care documentation, 35 minutes minutes Medications at Discharge Home Medications insulin lispro 100 unit/mL subcutaneous pen (Humalog KwikPen (U-100) Insulin) See Protocol subcut ACHS DM 07/24/22 acetaminophen 325 mg tablet (Tylenol) 325 mg PO Q6H PRN Pain 01/10/23 lactase 3,000 unit tablet (Lactaid) 3,000 unit PO TIDCM LACTOSE INTOLLERANCE 01/10/23 potassium chloride 20 mEq/15 mL oral liquid 20 meq (15 mL) PO BID #1,200 mL 01/23/23 rivaroxaban 20 mg tablet (Xarelto) 20 mg PO DAILY BLOOD THINNER #30 tabs 01/23/23 blood sugar diagnostic (OneTouch Verio test strips) 02/27/23 flash glucose sensor (FreeStyle Niru 14 Day Sensor kit) 02/27/23 pen needle, diabetic 32 gauge x 5/32 (BD Ultra-Fine Lorin Pen Needle) 02/27/23 insulin glargine 100 unit/mL (3 mL) subcutaneous pen (Lantus Solostar U-100 Insulin) 40 unit (0.4 mL) subcut BID DIABETES #15 mL 03/02/23 insulin lispro 100 unit/mL subcutaneous pen 25 unit (0.25 mL) subcut TIDAC DIABETES #15 mL 03/02/23 omeprazole 20 mg tablet,delayed release 40 mg PO DAILY 30 days #30 tabs 03/02/23 potassium, sodium phosphates 280 mg-160 mg-250 mg oral powder packet 1 packet PO TID 5 days #15 ea 03/02/23 Hospital Course Summary of Care Provided Minutes Spent on Discharge: 35 Physical Exam Narrative GENERAL: Awake and communicative HEENT: Atraumatic; EYES; Anicteric, Normal Conjunctiva NECK; supple, normal thyroid, RESPIRATORY: Diminished to auscultation, CARDIOVASCULAR:? Regular S1 S2, tachycardic GI:? soft, normoactive bowel sounds, : No Renal angle tenderness; EXTREMITIES:? No edema, no clubbing, MUSCULOSKELETAL:? no muscle wasting NEURO:?No lateralizing signs SKIN:? No Rash PSYCH; flat affect Weight / BMI Weight Weight: 87.3 kg Body Mass Index (BMI) 25.4 ABG / Lab / Microbiology Data Result Diagrams: 04/12/23 04:24 04/12/23 04:24 Laboratory: Laboratory Results - last 24 hr 04/11/23 04:22: POC Glucose 233 H 04/11/23 06:11: POC Glucose 216 H 04/11/23 12:01: POC Glucose 160 H 04/11/23 16:28: POC Glucose 71 L 04/11/23 17:10: Sodium 141, Potassium 2.8 L, Chloride 106, Carbon Dioxide 28.0, Anion Gap 7, BUN 10, Creatinine 0.98, Estim Creat Clear Calc 129.77, Est GFR (MDRD) Af Amer 122, Est GFR (MDRD) Non-Af 101, BUN/Creatinine Ratio 10.2, Gluc ose 103, Calcium 8.5 04/11/23 21:58: POC Glucose 229 H 04/12/23 04:24: WBC 5.9, RBC 3.91 L, Hgb 9.2 L, Hct 28.8 L, MCV 73.7 L, MCH 23.5 L, MCHC 31.9 L, RDW Std Deviation 46.5 H, RDW Coeff of Rabia 17.4 H, Plt Count 231, MPV 9.4, Immature Gran % (Auto) 0.300, Neut % (Auto) 70.2 H, Lymph % (Auto) 20.8, [place] % (Auto) 7.2, Eos % (Auto) 1.2, Baso % (Auto) 0.3, Absolute Neuts (auto) 4.1, Absolute Lymphs (auto) 1.22, Nucleated RBC % 0 04/12/23 04:24: Sodium 142, Potassium 3.2 L, Chloride 111 H, Carbon Dioxide 23.0, Anion Gap 8, BUN 8, Creatinine 0.80, Estim Creat Clear Calc 158.97, Est GFR (MDRD) Af Amer 156, Est GFR (MDRD) Non-Af 129, BUN/Creatinine Ratio 10.0, Glucose 79, Calcium 7.8 L 04/12/23 05:39: POC Glucose 86 D/C Instructions Discharge Diet: 1800 Calorie Control Diet Discharge Activity: Return to Normal Activity Call your doctor if you observe: Fever of 101 or Higher, Shortness of breath, Fainting spells and Chest pain Meaningful Use Info Meaningful Use Diagnoses (Choose all that apply): None applicable Discharge Plan Admission Admit Date/Time: 04/10/23 11:16 Attending Provider: Will Mason Primary Care Provider: Mario Reyes Discharge Orders/Prescriptions Prescriptions: Continued insulin lispro [Humalog KwikPen Insulin] 100 unit/mL insulin pen See Protocol subcut ACHS Protocol: 1. Sliding Scale Insulin Low Dosing Condition: 150-224 mg/dl = 1 unit Condition: 225-299 mg/dl = 2 units Condition: 300-374 mg/dl = 3 units Condition: 375-499 mg/dl = 4 units Condition: Greater than 449 call physician Protocol Text: - Use for Total Daily Dose of Insulin 15-27 units - Thin, elderly, renal patients LOW DOSING ALGORITHM acetaminophen [Tylenol] 325 mg Tablet 325 mg PO Q6H PRN (Reason: Pain) lactase [Lactaid] 3,000 unit Tablet 3,000 unit PO TIDCM potassium chloride 20 mEq/15 mL liquid 20 meq PO BID Qty: 1200 0RF Hold Instructions: Hold while taking Neutra-Phos. Xarelto 20 mg Tablet 20 mg PO DAILY Qty: 30 1RF (DME) OneTouch Verio test strips Strip See Rx Instructions .ROUTE .MEDSUPPLY Rx Instructions: 4x/day (DME) pen needle, diabetic [BD Ultra-Fine Lorin Pen Needle] 32 gauge x 5/32 needle See Rx Instructions .ROUTE .MEDSUPPLY Rx Instructions: As directed (DME) FreeStyle Niru 14 Day Sensor Kit See Rx Instructions .ROUTE .MEDSUPPLY Rx Instructions: As directed potassium, sodium phosphates 280-160-250 mg Powder In Packet 1 packet PO TID 5 Days Qty: 15 0RF insulin lispro 100 unit/mL insulin pen 25 unit subcut TIDAC Qty: 15 0RF Rx Instructions: Hold if glucose less than 130 mg/dl insulin glargine [Lantus Solostar U-100 Insulin] 100 unit/mL (3 mL) insulin pen 40 unit SUBCUT BID Qty: 15 2RF omeprazole 20 mg Tablet,Delayed Release (Dr/Ec) 40 mg PO DAILY 30 Days Qty: 30 2RF Referrals / Follow Up: Serena Correa NP, [employer] [employer] [Non-Staff] - 04/18/23 3:40 pm (Appt is @ Dr Reyes's office, but is with Serena Correa/ARCHANA. This is a hospital follow-up visit. (Please still keep your appt with Serena Correa/ARCHANA on Jun 27 that was previously scheduled, as that appt is for establishment of care) ) Elise Raymond NP, [employer] [facility] [Non-Staff] - 05/23/23 4:20 pm Disposition Disposition (needs filled in before D/C Order can be placed): Home, Self Care Charges/Coding Visit Charges Inpatient E&M: 21926 Disch Hosp >30min
--- NOTE | 2023-04-12 10:57 | CASEMGMT ---
VERONA FONTANEZ NOTE: Call placed to pt's GM, Ines. No answer. VM left inquiring if pt's mother, Ines, may also be available to come in for meeting today @ 1 PM. Ena MONTEZ RN CM
--- NOTE | 2023-04-12 11:12 | CASEMGMT ---
Pt has dc order in. Updated pt nurse of meeting at 1pm with patient and family.
[2023-04-12] MEDS: Insulin Lispro 100 UNIT/ML INSULN.PEN SC (11:39)
[2023-04-12 12:06] LABS: Bedside Glucose 176 mg/dL (74-106)
--- NOTE | 2023-04-12 13:00 | CASEMGMT ---
VERONA FONTANEZ NOTE: Met w/pt, pt's GM/Ines, VERONA Wahl, VERONA Villalobos from [facility], and SHANEKA Mercer from [facility] in pt's room to discuss home-going discharge plan and on-going care to assist w/better management of DM. Pt has voiced is agreeable to resumption of Pt Link program. VERONA Mercer reviewed with pt the importance of checking his BS's AC and HS, taking his insulin as scheduled, and recording data into the Pt Link tablet and pt voiced understanding. Pt states he is familiar w/how to use the tablet. VERONA Wahl reviewed Pt Link tablet with pt's GM @ the bedside. Pt and GM agreeable to having Ruslan from [facility] meet w/pt @ his home. Initially GM voiced concern re: pt's aunt not allowing anyone to come into the home but once she was made aware that meeting could even take place outside of the home such as on the porch, GM agreeable to SHANEKA Mercer from [facility] coming to the home. Arrangements made for him to meet w/pt @ his home on Sunday04/16/23 @ 11 AM. Reviewed upcoming appts with pt and GM, including hospital f/u appt w/Serena Older/REINSPECTOR for Dr Reyes on 04/18, establishment of care appt w/Serena on Jun 27, and appt w/REINSPECTOR Elise Raymond/dental mechanic on 05/23. They were made aware these appt are documented in pt's discharge plan and will be given to pt prior to discharge. Pt and GM denied having further questions. Ena MONTEZ RN, CM
[2023-04-12 13:38] VITALS: BP 113/82; PULSE 83; RESP 18; TEMP 37.1; O2SAT 99
== END 2023-04-12 13:55 | disposition home or self-care (01) | DRG 420 ==
LOC: ED 11:04 → ICU 11:31 → MS3 04-11 16:17
PROVIDERS: Admitting Provider Internal Medicine; Emergency Provider Emergency Medicine; PCP Internal Medicine; Visit Provider Internal Medicine
DX: E10.10 Type 1 diabetes mellitus with ketoacidosis without coma (principal); G93.41 Metabolic encephalopathy; N17.9 Acute kidney failure, unspecified; D63.8 Anemia in other chronic diseases classified elsewhere; Z79.4 Long term (current) use of insulin; E87.5 Hyperkalemia; Z79.01 Long term (current) use of anticoagulants; Z86.711 Personal history of pulmonary embolism; Z86.718 Personal history of other venous thrombosis and embolism
CPT/HCPCS: 36415; 71045; 80048; 80053; 81001; 82009; 82803; 82947; 82962; 85025; 93005; 99285; J7030; A4216; C1751; J2405

== ENCOUNTER 2023-05-08 20:35 | Inpatient (IN) | payer MEDICAID, SELFPAY ==
[2023-05-08 20:38] VITALS: BP 127/76; PULSE 130; RESP 16; TEMP 37.1; O2SAT 100; BMI 26.2
--- NOTE | 2023-05-08 20:53 | EKG12_ITS ---
Test Reason : DYSRHYTHMIA Blood Pressure : / mmHG Vent. Rate : 122 BPM Atrial Rate : 122 BPM P-R Int : 134 ms QRS Dur : 088 ms QT Int : 334 ms P-R-T Axes : 044 054 024 degrees QTc Int : 475 ms Sinus tachycardia Otherwise normal ECG Confirmed by YANE CASTILLO, ROXANNE ([id number]), editor greeting card AYESHA VALLE ([id number]) on 05/09/2023 10:06:25 AM Referred By: HARINDER Confirmed By:ROXANNE CHE MD
--- NOTE | 2023-05-08 21:19 | EDS_ITS ---
HPI History of Present Illness Chief Complaint: Wound Narrative Narrative: 22-year-old male with history of type 1 diabetes, DKA, medical noncompliance presenting with bilateral foot wounds and a left tibial wound. He states that he notices that he had some skin changes on his toes and bottom of his feet since Sunday. He also has a wound on the left tibial region. He states has been at the same timeframe. He does not remember any injury. He has not had fever or chills. He reports that his blood sugar was about 120 earlier. [facility] Medical History Anxiety AP window (aortopulmonary window) Asthma Depression Diabetes mellitus type 1 DVT (deep venous thrombosis) femur surgery GERD (gastroesophageal reflux disease) Hypokalemia Hypokalemia Kidney disease Lower extremity edema Nausea and vomiting Non-smoker Noncompliance Noncompliance with diabetes treatment Nonhealing surgical wound Psychosocial problem Severe protein-calorie malnutrition Sinus tachycardia seen on awake overnight monitor Ulcer of leg, chronic Wound of left lower extremity Home Medications insulin lispro 100 unit/mL subcutaneous pen (Humalog KwikPen (U-100) Insulin) See Protocol subcut ACHS DM 07/24/22 [History Last Taken Unknown] acetaminophen 325 mg tablet (Tylenol) 325 mg PO Q6H PRN Pain 01/10/23 [History Last Taken 01/09/23] potassium chloride 20 mEq/15 mL oral liquid 20 meq (15 mL) PO BID #1,200 mL 01/23/23 [Rx Last Taken Unknown] rivaroxaban 20 mg tablet (Xarelto) 20 mg PO DAILY BLOOD THINNER #30 tabs 01/23/23 [Rx Last Taken Unknown] blood sugar diagnostic (OneTouch Verio test strips) 02/27/23 [History Last Taken Unknown] flash glucose sensor (FreeStyle Niru 14 Day Sensor kit) 02/27/23 [History Last Taken Unknown] pen needle, diabetic 32 gauge x 5/32 (BD Ultra-Fine Lorin Pen Needle) 02/27/23 [History Last Taken Unknown] insulin glargine 100 unit/mL (3 mL) subcutaneous pen (Lantus Solostar U-100 Insu eze) 40 unit (0.4 mL) subcut BID DIABETES #15 mL 03/02/23 [Rx Last Taken Unknown] insulin lispro 100 unit/mL subcutaneous pen 25 unit (0.25 mL) subcut TIDAC DIABETES #15 mL 03/02/23 [Rx Last Taken Unknown] omeprazole 20 mg tablet,delayed release 40 mg PO DAILY 30 days #30 tabs 03/02/23 [Rx Last Taken Unknown] Allergy/AdvReac Type Severity Reaction Status Date / Time Milk Containing Products AdvReac Diarrhea Verified 05/08/23 20:36 (Dairy) [Milk Containing Products] Family History Father Polysubstance overdose Patient father young secondary to OD. Mother Iron deficiency anemia Other Asthma CVA (cerebral vascular accident) Diabetes Hypertension Thyroid disorder Surgical History H/O right knee surgery History of surgery on extremity Hx of knee surgery Social History housing: other details: Lives with his grandmother, aunt and mother. Smoking Status: Never smoker alcohol intake: current alcohol intake frequency: a few times a month substance use type: does not use ROS ROS ED Constitutional Constitutional ED: Denies chills, fever(s) or sweats Eyes Eyes: Denies blurry vision or change in vision ENT ENT ED: Denies ear pain or sore throat Cardiovascular Cardiovascular: Denies chest pain, palpitations or racing heartbeat Respiratory/Chest Respiratory/Chest: Denies cough, dyspnea or sputum Gastrointestinal Gastrointestinal: Denies abdominal pain, constipation, diarrhea, nausea or vomiting Genitourinary Genitourinary ED: Denies dysuria, hematuria or urinary frequency Musculoskeletal Musculoskeletal: Denies arthralgias, myalgias or neck pain Integumentary Reports other Details: Wound noted on the left tibia Bilateral foot rash ; Denies abscess, Abrasions or rash Neurologic Neurologic: Denies headache(s), paresthesias or weakness Psychiatric Psychiatric: Denies anxiety, depression, suicidal ideation or suicidal thoughts Endocrine Endocrinology: Denies polydipsia or polyuria EXAM Physical Exam Const Vital Signs: 05/08/23 20:38 05/08/23 21:48 Temperature 98.8 F 98.1 F Temperature Source Temporal Oral Pulse Rate 130 H 107 H Respiratory Rate 16 19 H Blood Pressure 127/76 H 116/71 Blood Pressure Mean 93 86 Pulse Ox 100 98 Oxygen Delivery Method Room Air Positive well nourished General Appearance ED: NAD HEENT normocephalic and atraumatic Cardio regular rhythm Rate: tachycardic GI non-tender Neuro oriented x3 and CN's II-XII intact bilaterally Sensorium / Orientation: alert Motor Exam: strength 5/5 throughout Skin Skin Narrative: There is a skin wound on the anterior portion of the distal tibia. There are some scant drainage. There is no fluctuance. The bilateral feet have skin sloughing and drainage. MDM MDM MDM Narrative Medical decision making narrative: Patient presenting with foot wounds and a lower leg wound. Differential includes cellulitis, abscess of the tibia, DKA, electrolyte abnormalities, dehydration CBC will obtain to assess for leukocytosis, hemoglobin, platelets. CMP to assess liver function, renal function, glucose, anion gap. Acetone to ensure is not DKA. Patient given liter IV fluids. EKG was obtained which shows sinus tachycardia at a rate of 122 bpm. We will obtain at high-sensitivity troponin. Will obtain imaging of the bilateral feet and the tibia. So far the CBC shows no leukocytosis. Hemoglobin stable. Platelets normal. Renal function appears to be within normal limits. Glucose 673 without anion gap acetone negative. Patient will be signed out to incoming ED physician for monitoring and review of imaging. Patient will most likely be admitted Lab Data Labs: Laboratory Results - last 24 hr 05/08/23 05/08/23 05/08/23 21:36 21:36 21:36 WBC 4.4 RBC 4.46 L Hgb 10.2 L Hct 32.5 L MCV 72.9 L MCH 22.9 L MCHC 31.4 L RDW Std Deviation 43.4 RDW Coeff of Rabia 16.4 H Plt Count 390 MPV 9.2 Immature Gran % (Auto) 0.200 Neut % (Auto) 59.6 Lymph % (Auto) 31.3 [place] % (Auto) 6.6 Eos % (Auto) 1.4 Baso % (Auto) 0.9 Absolute Neuts (auto) 2.6 Absolute Lymphs (auto) 1.37 Nucleated RBC % 0 Sodium 133 L Potassium 4.0 Chloride 99 Carbon Dioxide 23.0 Anion Gap 11 BUN 10 Creatinine 1.08 Estim Creat Clear Calc 121.25 Est GFR (MDRD) Af Amer 110 Est GFR (MDRD) Non-Af 91 BUN/Creatinine Ratio 9.3 L Glucose 673 H* Calcium 8.9 Total Bilirubin 0.50 AST 14 L ALT 21 Alkaline Phosphatase 137 H Troponin I High Sens 4 Total Protein 7.3 Albumin 3.3 Globulin 4.0 Albumin/Globulin Ratio 0.8 L Acetone Level NEGATIVE Discharge Plan Triage Chief Complaint: Wound ED Provider: Burton Pradhan Dx/Rx/DC Orders Prescriptions: No Action insulin lispro [Humalog KwikPen Insulin] 100 unit/mL insulin pen See Protocol subcut ACHS Protocol: 1. Sliding Scale Insulin Low Dosing Condition: 150-224 mg/dl = 1 unit Condition: 225-299 mg/dl = 2 units Condition: 300-374 mg/dl = 3 units Condition: 375-499 mg/dl = 4 units Condition: Greater than 449 call physician Protocol Text: - Use for Total Daily Dose of Insulin 15-27 units - Thin, elderly, renal patients LOW DOSING ALGORITHM acetaminophen [Tylenol] 325 mg Tablet 325 mg PO Q6H PRN (Reason: Pain) potassium chloride 20 mEq/15 mL liquid 20 meq PO BID Qty: 1200 0RF Hold Instructions: Hold while taking Neutra-Phos. Xarelto 20 mg Tablet 20 mg PO DAILY Qty: 30 1RF (DME) OneTouch Verio test strips Strip See Rx Instructions .ROUTE .MEDSUPPLY Rx Instructions: 4x/day (DME) pen needle, diabetic [BD Ultra-Fine Lorin Pen Needle] 32 gauge x 5/32 needle See Rx Instructions .ROUTE .MEDSUPPLY Rx Instructions: As directed (DME) FreeStyle Niru 14 Day Sensor Kit See Rx Instructions .ROUTE .MEDSUPPLY Rx Instructions: As directed insulin lispro 100 unit/mL insulin pen 25 unit subcut TIDAC Qty: 15 0RF Rx Instructions: Hold if glucose less than 130 mg/dl insulin glargine [Lantus Solostar U-100 Insulin] 100 unit/mL (3 mL) insulin pen 40 unit SUBCUT BID Qty: 15 2RF omeprazole 20 mg Tablet,Delayed Release (Dr/Ec) 40 mg PO DAILY 30 Days Qty: 30 2RF Primary Care Provider: Mario Reyes Referrals: Mario Reyes MD [Primary Care Provider] -
[2023-05-08] MEDS: 0.9% Normal Saline 1,000 ML 999 ML IV ×2 (21:38→22:55)
[2023-05-08 21:48] VITALS: BP 116/71; PULSE 107; RESP 19; TEMP 36.7; O2SAT 98
[2023-05-08 21:48] LABS: Absolute Lymphocyte Count 1.37 X10^3/uL (0.83-4.51); Absolute Neutrophil Count 2.6 X10^3/uL (2.0-7.7); Basophil# 0.04 X10^3/uL; Basophil% 0.9 % (0-1); Eosinophil# 0.06 X10^3/uL; Eosinophils% 1.4 % (0-5); Hematocrit 32.5 % (40-54); Hemoglobin 10.2 g/dL (13.0-16.5); Lymphocyte # 1.37 X10^3/ul (0.83-4.51); Lymphocyte % 31.3 % (19-41); Mean Corp Hgb Conc 31.4 g/dL (32-36); Mean Corpuscular Hgb 22.9 pg (27.0-32.0); Mean Corpuscular Volume 72.9 fL (80-94); Mean Platelet Vol. 9.2 fl (6.2-12.0); Monocyte# 0.29 X10^3/uL; Monocyte% 6.6 % (0-10); NRBC Flagged by Analyzer 0 % (0-5); Neutrophil # 2.61 X10^3/uL (2.7-7.7); Neutrophil % 59.6 % (47-70); Platelet Count 390 K/mm3 (150-450); RBC Distribution Width CV 16.4 % (11.6-14.6); RBC Distribution Width SD 43.4 fl (35.1-43.9); Red Blood Count 4.46 M/mm3 (4.6-6.2); White Blood Count 4.4 K/mm3 (4.4-11.0)
--- NOTE | 2023-05-08 21:57 | CT_ITS ---
EXAM: CT Lower Extremity W/ Contrast Injection HISTORY: wound Left leg and great toe redness and wound since 05/05, Diabetic. TECHNIQUE: Axial images obtained from the distal femur through the foot with IV contrast. IV Contrast: IV 75mL [id number] . Sagittal and coronal images were reconstructed. RADIATION DOSAGE (If Supplied By Facility): CTDIvol = ( 15.35 ) mGy, DLP = ( 1201.91 ) mGycm Individualized dose optimization techniques were used for this CT. COMPARISON: None. FINDINGS: Subcutaneous edema diffusely about the calf, most pronounced along the anterior/lateral aspect from the mid tibia level through the lateral malleolus. Associated skin thickening. Mild edema of foot mostly dorsally, and extending along the great toe, most pronounced about the interphalangeal joint medially. No localized collection or abscess. No air in the soft tissues. No significant edema tracking along the deep fascial planes. The bones are osteopenic. No definite lytic lesion or cortical destruction. No fracture demonstrated. CT/Extremity Lower WITH Contrast IMPRESSION: Mild subcutaneous edema may be consistent with cellulitis. No specific evidence of osteomyelitis. MRI may be more sensitive for evaluation. Electronically Signed: Catia Burnette MD at 23:54 EDT ,
--- NOTE | 2023-05-08 22:10 | RAD_ITS ---
INDICATION: infection EXAMINATION/TECHNIQUE: X-RAY - LEFT XR Tibia/Fibula 2 Views 4 VIEWS COMPARISON: FINDINGS: BONES: No fracture demonstrated. No lytic lesion or cortical destruction. JOINTS: No dislocation. SOFT TISSUES: Mild soft tissue side about the ankle may made at the lateral malleolus. RAD/Tibia & Fibula 2 Views IMPRESSION: Soft tissue swelling. No evidence of fracture. Electronically Signed: Catia Burnette MD at 22:48 EDT ,
--- NOTE | 2023-05-08 22:10 | RAD_ITS ---
STUDY: X-RAY - LEFT FOOT CLINICAL: Male, 22 years old. Infection TECHNIQUE: 3 view(s) of the foot. COMPARISON: 10/13/2022 left foot x-ray FINDINGS: There is demineralization of the rear and midfoot bones. Normal visualized subtalar, talonavicular, calcaneocuboid, tarsal and tarsometatarsal articulations. There is demineralization of the metatarsi. Normal metatarsophalangeal joint of the great toe. Normal tibial and fibular sesamoid bones. Normal interphalangeal joint of the great toe. Normal phalanges of the great toe. Normal second through fifth metatarsophalangeal joints. Normal interphalangeal joints and phalanges of the lesser toes. The soft tissue structures are unremarkable. RAD/Foot min 3 Views IMPRESSION: Bony demineralization. No visualized fracture. No visualized obvious bony erosion or soft tissue edema. Electronically Signed: Valerie Coleman MD at 0:34 EDT ,
--- NOTE | 2023-05-08 22:10 | RAD_ITS ---
INDICATION: infection EXAMINATION/TECHNIQUE: X-RAY - RIGHT XR Foot Min 3 Views 3 VIEWS COMPARISON: X-rays right foot 09/19/2019 FINDINGS: BONES: No fracture demonstrated. No definite lytic lesion or cortical destruction. Bones appear osteopenic. JOINTS: No dislocation. SOFT TISSUES: Unremarkable. RAD/Foot min 3 Views IMPRESSION: No evidence of fracture. Electronically Signed: Catia Burnette MD at 22:50 EDT ,
[2023-05-08 22:16] LABS: ALB/GLOB Ratio 0.8 RATIO (0.9-2.4); AST(SGOT) 14 U/L (15-37); Alanine Aminotransfer ALT/SGPT 21 U/L (16-61); Albumin, Serum 3.3 g/dL (3.2-5.0); Alkaline Phosphatase 137 U/L (45-117); Anion Gap 11 (5-15); BUN 10 mg/dL (7-18); BUN/Creat Ratio 9.3 RATIO (10-20); Calcium,Total 8.9 mg/dL (8.5-10.1); Chloride 99 mmol/L (98-107); Creatinine, Serum 1.08 mg/dL (0.70-1.30); EST Glomerular Filtration Rate 91 mL/min (>60); Est Glom Filt Rate - Afr Amer 110 mL/min (>60); Estimated Creatinine Clearance 121.25 ml/min; Glucose 673 mg/dL (74-106); Protein, Total 7.3 g/dL (6.4-8.2); Sodium Level 133 mmol/L (136-145); Troponin-I HS 4 pg/mL (3.0-78.0)
[2023-05-08 22:55] LABS: Bacteria 0 SEEN /hpf (None Seen); Mucous, Urine 0 SEEN /hpf (<or=2+); Red Blood Cells-Urine 0 SEEN /hpf (0-5); White Blood Cells 0 SEEN /hpf (0-5)
[2023-05-08 22:58] VITALS: BP 120/78; PULSE 87; RESP 21; TEMP 36.7; O2SAT 100
[2023-05-08 22:59] LABS: Color, Urine Yellow (Yellow); Glucose, Dipstick 1000 mg/dl (Normal); Ketone-Dipstick Negative (Negative); Leukocyte Esterase-Dipstick Negative /ul (Negative); Nitrite-Dipstick Negative (Negative); Occult Blood-Urine Negative /ul (Negative); Protein-Dipstick Negative (Negative); Urine Bilirubin Dipstick Negative (Negative); Urine Clarity Clear (Clear); Urine Urobilinogen Normal (Normal); Urine pH 6.5 (5.0 - 8.0)
[2023-05-08 23:00] VITALS: BP 118/81; PULSE 87; RESP 20; TEMP 36.7; O2SAT 100
[2023-05-08 23:06] LABS: Squamous Epithelial Cells - UA 0-5 SEEN /hpf (0-5)
--- NOTE | 2023-05-08 23:30 | HP.PCM.HOS_ITS ---
HPI - General General Date of Admission: 05/08/23 Date of Service: 05/08/23 Chief Complaint: BL foot wounds, L glez wound. HPI Narrative The patient is a 22 y/o M w/ PMHx: Hx VTE (DVT, PE on xarelto), Uncontrolled Diabetes mellitus type I with frequent DKA presentations noncomplaint with his insulin and diet, Chronic severe protein calorie malnutrition, Hx 2021 pericarditis/pericardial infection (Treated at [facility], formerly [facility], MSSA infection treated with abx therapy), History Stage II L buttock pressure, recent discharge 04/12/23 following treatment and evaluation for DKA with metabolic encephalopathy who now represents to the [facility] ED on 05/08/23 with history of progressively worsening wounds to his bilateral great toes with elevated blood sugars and tachycardia as well as a left anterior glez wound with discharge all starting on Sunday prior to ED presentation prompting ED evaluation. He states that he has been wearing shoes and socks and has had no associated fevers or chills. He denies any recent swimming or specific injury to the regions. Work-up in the ED included T98.8, heart rate 130 improving to 107, BP 127/76, respiratory rate 16, 100% on room air, CBC with WBC 4.4, hemoglobin 10.2, MCV 72.9, platelet 390 without marked shift, CMP with sodium 133, anion gap 11, BUN/creatinine 10/1.08, glucose 673, hepatic profile with alk phos 137 otherwise not marked appearing, troponin 4, acetone level negative, wound culture obtained from great toe wounds bilaterally, plain film of BL foot with no obvious acute endings however, only right plain film of the foot with no acute evidence of fracture and awaiting left foot final read, plain film of the left tibia/fibula with soft tissue swelling with no acute evidence of fracture, upon evaluation pending CT left tib/fib. In the ED patient administered 2 L normal saline, IV vancomycin and IV Zosyn therapy. 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 Ulcer of leg, chronic Wound of left lower extremity Home Medications insulin lispro 100 unit/mL subcutaneous pen (Humalog KwikPen (U-100) Insulin) See Protocol subcut ACHS DM 07/24/22 [History Last Taken Unknown] acetaminophen 325 mg tablet (Tylenol) 325 mg PO Q6H PRN Pain 01/10/23 [History Last Taken 01/09/23] potassium chloride 20 mEq/15 mL oral liquid 20 meq (15 mL) PO BID #1,200 mL 01/23/23 [Rx Last Taken Unknown] rivaroxaban 20 mg tablet (Xarelto) 20 mg PO DAILY BLOOD THINNER #30 tabs 01/23/23 [Rx Last Taken Unknown] blood sugar diagnostic ([employer] Verio test strips) 02/27/23 [History Last Taken Unknown] flash glucose sensor (FreeStyle Niru 14 Day Sensor kit) 02/27/23 [History Last Taken Unknown] pen needle, diabetic 32 gauge x 5/32 (BD Ultra-Fine Lorin Pen Needle) 02/27/23 [History Last Taken Unknown] insulin glargine 100 unit/mL (3 mL) subcutaneous pen (Lantus Solostar U-100 Insulin) 40 unit (0.4 mL) subcut BID DIABETES #15 mL 03/02/23 [Rx Last Taken Unknown] insulin lispro 100 unit/mL subcutaneous pen 25 unit (0.25 mL) subcut TIDAC DIABETES #15 mL 03/02/23 [Rx Last Taken Unknown] omeprazole 20 mg tablet,delayed release 40 mg PO DAILY 30 days #30 tabs 03/02/23 [Rx Last Taken Unknown] Allergy/AdvReac Type Severity Reaction Status Date / Time Milk Containing Products AdvReac Diarrhea Verified 05/08/23 20:36 (Dairy) [Milk Containing Products] Family History Father Polysubstance overdose Patient father young secondary to OD. Mother Iron deficiency anemia Other Asthma CVA (cerebral vascular accident) Diabetes Hypertension Thyroid disorder Surgical History H/O right knee surgery History of surgery on extremity Hx of knee surgery Social History housing: other details: Lives with his grandmother, aunt and mother. Smoking Status: Never smoker alcohol intake: current alcohol intake frequency: a few times a month substance use type: does not use ROS ROS Narrative Admission Review of Systems: CONSTITUTIONAL: No weight loss, fever, chills, + weakness or fatigue. HEENT: + Extremely poor dentition. Eyes: No visual loss, blurred vision, double vision or yellow sclerae. Ears, Nose, Throat: No hearing loss, sneezing, congestion, runny nose or sore throat. SKIN: + Bilateral great toe wounds, LLE anterior glez wound as well as history stage II left buttock pressure ulcer/sacral ulcers that have resolved. CARDIOVASCULAR: + palpitations. No chest pain, chest pressure or chest discomfort, edema, orthopnea, syncopal events. RESPIRATORY: + shortness of breath, No cough or sputum, wheezing, hemoptysis. GASTROINTESTINAL: + anorexia, nausea, vomiting, abdominal pain/cramping. No diarrhea, melena, BRBPR. GENITOURINARY: + Frequency. No dysuria, urgency or retention. NEUROLOGICAL: No headache, dizziness, syncope, paralysis, ataxia, numbness or tingling in the extremities, focal weakness, change in bowel or bladder control, seizure. MUSCULOSKELETAL:+ muscle, back pain, joint pain or stiffness. HEMATOLOGIC: No anemia, bleeding or bruising. LYMPHATICS: No enlarged nodes. No history of splenectomy. PSYCHIATRIC: No history of depression or anxiety. ENDOCRINOLOGIC: No reports of sweating, cold or heat intolerance. + polyuria or polydipsia. ALLERGIES: + Lactose intolerant. Vital Signs Vital Signs Vital Signs: 05/08/23 20:38 05/08/23 21:48 Temperature 98.8 F 98.1 F Temperature Source Temporal Oral Pulse Rate 130 H 107 H Respiratory Rate 16 19 H Blood Pressure 127/76 H 116/71 Blood Pressure Mean 93 86 Pulse Ox 100 98 Oxygen Delivery Method Room Air Weight Weight: 199 lb Body Mass Index (BMI) 26.2 Physical Exam Narrative Physical Examination: General: Awake, alert, oriented x 3 and cooperative, laying in the ED bed, fatigued appearing. Skin: Normal color, normal turgor, no icterus, no cyanosis, resolved posterior pressure ulcers, no evidence of any intertrigo, LLE mid anterior glez wound with mild purulent discharge, no marked periwound erythema, BL great toe maceration and mild serous appearing discharge with chronic BL LE erythema along the medial BL foot regions. HEENT: AT/NC, EOMI, PERRLA, dry MM, significantly poor dentition, no carotid bruits or JVD noted. Lungs: Diminished, greater bases, mildly increased respiratory rate but no distress, no rales, ronchi or wheezing. Heart: Improving, still mildly tachycardic with regular rhythm; no gallop, rub audible. Abdomen: Soft, NTTP, ND, normal BS, no HSM. Extremities: No cyanosis, clubbing, or edema, see skin. Neurological: Patient awake, alert, oriented as noted, cognitive function intact; pupils equally reactive to light and accommodation, cranial nerves II- XII grossly normal, moving all 4 extremities, no focal deficits, strength moderately globally decreased secondary to acute presentation complaints. Psychiatric: Affect appears fatigued, no acute evidence of depressive or anxiety feelings. Results Lab / Micro Data Result Diagrams: 05/08/23 21:36 05/08/23 21:36 Labs: Laboratory Results - last 24 hr 05/08/23 21:36: WBC 4.4, RBC 4.46 L, Hgb 10.2 L, Hct 32.5 L, MCV 72.9 L, MCH 22.9 L, MCHC 31.4 L, RDW Std Deviation 43.4, RDW Coeff of Rabia 16.4 H, Plt Count 390, MPV 9.2, Immature Gran % (Auto) 0.200, Neut % (Auto) 59.6, Lymph % (Auto) 31.3, [place] % (Auto) 6.6, Eos % (Auto) 1.4, Baso % (Auto) 0.9, Absolute Neuts (auto) 2.6, Absolute Lymphs (auto) 1.37, Nucleated RBC % 0 05/08/23 21:36: Sodium 133 L, Potassium 4.0, Chloride 99, Carbon Dioxide 23.0, Anion Gap 11, BUN 10, Creatinine 1.08, Estim Creat Clear Calc 121.25, Est GFR (MDRD) Af Amer 110, Est GFR (MDRD) Non-Af 91, BUN/Creatinine Ratio 9.3 L, Glucose 673 H*, Calcium 8.9, Total Bilirubin 0.50, AST 14 L, ALT 21, Alkaline Phosphatase 137 H, Troponin I High Sens 4, Total Protein 7.3, Albumin 3.3, Globulin 4.0, Albumin/Globulin Ratio 0.8 L 05/08/23 21:36: Acetone Level NEGATIVE Assessment & Plan Assessment/Plan (1) Diabetic foot infection: PLAN: Plan The patient is a 22 y/o M w/ PMHx: Hx VTE (DVT, PE on xarelto), Uncontrolled Diabetes mellitus type I with frequent DKA presentations noncomplaint with his insulin and diet, Chronic severe protein calorie malnutrition, Hx 2021 pericarditis/pericardial infection (Treated at [facility], [facility], MSSA infection treated with abx therapy), History Stage II L buttock pressure, recent discharge 04/12/23 following treatment and evaluation for DKA with metabolic encephalopathy who now represents to the [facility] ED on 05/08/23 with history of progressively worsening wounds to his bilateral great toes with elevated blood sugars and tachycardia as well as a left anterior glez wound with discharge all starting on Sunday prior to ED presentation prompting ED evaluation. #1. BL LE great toe diabetic foot wounds as well as left anterior mid glez wound: Will admit to [facility] given improved vital signs following initial ED interventions, maintain on IV Vanc and Zosyn, pending Wound Cx per ED, will obtain Wound MRSA PCR, plan repeat CBC in AM, continue affected extremity elev ation above heart when seated and in bed, monitor erythema outline with VS checks, request wound RN consultation, request podiatry consultation. #2. Diabetes mellitus type I with significant history of noncompliance and DKA recurrent admissions: Will continue home insulin regimen, ADA diet, accu checks w/ ISS. #3. History of VTE: Patient with history DVT, PE, we will continue patient home Xarelto regimen. #4. Lactose intolerant: We will temporarily hold patient home chronic lactase regimen until oral diet started, resume once appropriate. #5. GERD: We will continue patient home PPI. #6. Severe chronic protein and calorie malnutrition: In the setting of significant chronic diabetic disease with noncompliance with serial readmissions usually for DKA however current presentation with bilateral lower extremity wounds, nutrition consulted. #7. History of chronic pressure ulcers: Patient with previous significant sacral and buttock pressure ulcers, currently appear resolved, encourage frequent positional changes, offloading. #8. DVT prophylaxis: Continue home Xarelto regimen. #9. CODE STATUS: Full Code. Admission Evaluation Time spent evaluating chart, patient history, patient evaluation, care planning and discussion with specialists: 75 minutes. Charges/Coding Visit Charges Inpatient E&M: 54897 Init Hosp L3
[2023-05-08 23:31] VITALS: BP 118/80; PULSE 89; RESP 19; O2SAT 99
[2023-05-09 00:09] VITALS: BP 120/84; PULSE 93; RESP 15; TEMP 36.8; O2SAT 100
[2023-05-09 00:17] LABS: Bedside Glucose 492 mg/dL (74-106)
[2023-05-09 00:23] LABS: CRP < 2.90 mg/L (0.0-3.0)
[2023-05-09 00:39] LABS: Erythrocyte Sedimentation Rate 42 mm/hr (0-20)
[2023-05-09 00:47] VITALS: BMI 26.3
[2023-05-09 00:57] VITALS: BP 129/84; PULSE 90; RESP 18; TEMP 36.8; O2SAT 99
--- NOTE | 2023-05-09 00:59 | PCM.RX.CS ---
Consult Pharmacy has been consulted to manage selected antiobiotic: Vancomycin Type of Consult: New start Prior Doses of Antibiotics Received/Current Regimen: Medications Vancomycin HCl (Vancomycin) 1,000 mg in 200 mls @ 200 mls/hr IV Q8H LILLY Discontinued Medications Vancomycin HCl 1,250 mg/ (Sodium Chloride) 275 mls @ 167 mls/hr IV X1 ONE Stop: 05/08/23 23:53 Last Admin: 05/08/23 23:31 Dose: 167 mls/hr Labs: Sodium 133 mmol/L (136-145) L 05/08/23 21:36 Potassium 4.0 mmol/L (3.5-5.1) 05/08/23 21:36 Chloride 99 mmol/L (98-107) 05/08/23 21:36 Carbon Dioxide 23.0 mmol/L (21.0-32.0) 05/08/23 21:36 Anion Gap 11 (5-15) 05/08/23 21:36 BUN 10 mg/dL (7-18) 05/08/23 21:36 Creatinine 1.08 mg/dL (0.70-1.30) 05/08/23 21:36 Est GFR (MDRD) Af Amer 110 mL/min (>60) 05/08/23 21:36 Est GFR (MDRD) Non-Af 91 mL/min (>60) 05/08/23 21:36 BUN/Creatinine Ratio 9.3 RATIO (10-20) L 05/08/23 21:36 Glucose 673 mg/dL (74-106) H* 05/08/23 21:36 Weight used for dosin.5 kg Estimated Creatinine Clearance: 121 Goal Trough: 15-20 mcg/mL Pharmacy Plan for Drug Dosing: Pharmacy Service will continue to monitor and adjust dosing as required. Follow-Up Labs: Trough Vancomycin Labs to be done on [date and time ordered]: 05/09/23 @2300
[2023-05-09] MEDS: 0.9% Normal Saline 1,000 ML 125 ML IV (01:23)
[2023-05-09] MEDS: Insulin Glargine-YFGN 100 UNIT/ML Pen 40 UNIT SC ×2 (01:31→10:31)
[2023-05-09 01:33] LABS: Bedside Glucose 472 mg/dL (74-106)
[2023-05-09 01:35] VITALS: O2SAT 99
[2023-05-09] MEDS: Insulin Lispro 100 UNIT/ML INSULN.PEN 10 UNIT SC (01:58)
[2023-05-09 04:52] LABS: Bedside Glucose 178 mg/dL (74-106)
[2023-05-09 07:10] LABS: Absolute Lymphocyte Count 1.91 X10^3/uL (0.83-4.51); Absolute Neutrophil Count 2.9 X10^3/uL (2.0-7.7); Basophil# 0.02 X10^3/uL; Basophil% 0.4 % (0-1); Eosinophil# 0.12 X10^3/uL; Eosinophils% 2.2 % (0-5); Hematocrit 32.7 % (40-54); Hemoglobin 10.1 g/dL (13.0-16.5); Lymphocyte # 1.91 X10^3/ul (0.83-4.51); Lymphocyte % 35.3 % (19-41); Mean Corp Hgb Conc 30.9 g/dL (32-36); Mean Corpuscular Hgb 22.9 pg (27.0-32.0); Mean Corpuscular Volume 74.1 fL (80-94); Mean Platelet Vol. 8.9 fl (6.2-12.0); Monocyte% 7.4 % (0-10); NRBC Flagged by Analyzer 0 % (0-5); Neutrophil # 2.94 X10^3/uL (2.7-7.7); Neutrophil % 54.3 % (47-70); Platelet Count 356 K/mm3 (150-450); RBC Distribution Width CV 16.4 % (11.6-14.6); RBC Distribution Width SD 43.8 fl (35.1-43.9); Red Blood Count 4.41 M/mm3 (4.6-6.2); White Blood Count 5.4 K/mm3 (4.4-11.0)
[2023-05-09 07:17] LABS: M R Staph aureus DNA By PCR Negative (Negative); Probe Check PASS; Specimen Processing Control PASS
[2023-05-09 07:18] LABS: Staph aureus DNA By PCR POSITIVE (Negative)
[2023-05-09 07:43] LABS: ALB/GLOB Ratio 0.8 RATIO (0.9-2.4); AST(SGOT) 17 U/L (15-37); Alanine Aminotransfer ALT/SGPT 18 U/L (16-61); Albumin, Serum 2.9 g/dL (3.2-5.0); Alkaline Phosphatase 116 U/L (45-117); Anion Gap 7 (5-15); BUN 8 mg/dL (7-18); BUN/Creat Ratio 13.2 RATIO (10-20); Calcium,Total 8.8 mg/dL (8.5-10.1); Chloride 109 mmol/L (98-107); EST Glomerular Filtration Rate 177 mL/min (>60); Est Glom Filt Rate - Afr Amer 214 mL/min (>60); Estimated Creatinine Clearance 218.25 ml/min; Globulin 3.8 g/dL (2.2-4.2); Glucose 91 mg/dL (74-106); Potassium 3.2 mmol/L (3.5-5.1); Protein, Total 6.7 g/dL (6.4-8.2); Sodium Level 140 mmol/L (136-145)
--- NOTE | 2023-05-09 07:55 | PCM.CONS.GEN ---
Assessment & Plan Assessment/Plan (1) Abrasion of leg, left: (2) Non-pressure chronic ulcer of other part of right foot with fat layer exposed: (3) Non-pressure chronic ulcer of other part of left foot with fat layer exposed: (4) Type 1 diabetes: PLAN: Plan Patient seen and evaluated Noted wounds to bilateral distal medial hallux secondary to previous blister formation from rubbing in shoe gear and left anterior lower extremity wound secondary to rubbing against sock. Sites are stable demonstrating no signs of infection. Wound culture obtained MSRA PCR negative, Staph aureus protein A PCR positive. WBC WNL. Blood sugar 673 on admission down to 91 currently. Patient states he feels better. Radiographs obtained 05/08/2023 of the left and right foot negative for osteomyelitis. Left ankle x-ray 05/08/2023 negative for osteomyelitis. Radiographically no acute findings. CT was performed 05/08/2023 of the left lower extremity demonstrating mild diffuse subcutaneous edema consistent with a localized cellulitis however clinically there appears to be no erythema to the lower extremity. Sites were painted with Betadine and dressed with dry sterile dressing. Recommended better fitting socks and shoes to properly offload wound sites. Medicine team currently following for medical management, they are greatly appreciated. Recommended he follow-up in the wound care center upon discharge. Recommend Keflex 500 mg twice daily 10 days. At this time no surgical intervention planned. Given wounds are stable with no signs of infection patient may be discharged to follow-up in the wound care center. Please do not hesitate to call with any questions or concerns. Jr. Adore Healy.P.M. [facility] [phone] HPI Consult Data Date of Consult: 05/09/23 HPI Narrative Reason for Consultation: Bilateral hallux wound and left anterior lower leg wound HPI Narrative: SHIRA STEPHENSON, is a 22 M who presents to [facility] ED 05/08/2023 with bilateral hallux wounds and an abrasion/wound to the anterior aspect of the left lower extremity. Patient states he was wearing socks that were too tight which rubbed his leg and also created the wounds to both toes. He states he was walking all day Sunday and shoe gear throughout town and noticed the wounds got worse and prompted him to go to the ED for evaluation. Upon arrival blood sugar noted to be 673. ESR 42, CRP less than 2.90, WBC 4.4. He was started on vancomycin/Zosyn and he was evaluated this a.m. with improvement blood sugar. He denies any N/V/F/chills. Does state that there is tenderness to the wound sites at both hallux. Denies any further complaints. [facility] Medical History (Updated 05/09/23 @ 12:[address] 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 Ulcer of leg, chronic Wound of left lower extremity Home Medications insulin lispro 100 unit/mL subcutaneous pen (Humalog KwikPen (U-100) Insulin) See Protocol subcut ACHS DM 07/24/22 [History Last Taken Unknown] acetaminophen 325 mg tablet (Tylenol) 325 mg PO Q6H PRN Pain 01/10/23 [History Last Taken 01/09/23] potassium chloride 20 mEq/15 mL oral liquid 20 meq (15 mL) PO BID #1,200 mL 01/23/23 [Rx Last Taken Unknown] rivaroxaban 20 mg tablet (Xarelto) 20 mg PO DAILY BLOOD THINNER #30 tabs 01/23/23 [Rx Last Taken Unknown] blood sugar diagnostic (OneTouch Verio test strips) 02/27/23 [History Last Taken Unknown] flash glucose sensor (FreeStyle Niru 14 Day Sensor kit) 02/27/23 [History Last Taken Unknown] pen needle, diabetic 32 gauge x 5/32 (BD Ultra-Fine Lorin Pen Needle) 02/27/23 [History Last Taken Unknown] insulin glargine 100 unit/mL (3 mL) subcutaneous pen (Lantus Solostar U-100 Insulin) 40 unit (0.4 mL) subcut BID DIABETES #15 mL 03/02/23 [Rx Last Taken Unknown] insulin lispro 100 unit/mL subcutaneous pen 25 unit (0.25 mL) subcut TIDAC DIABETES #15 mL 03/02/23 [Rx Last Taken Unknown] omeprazole 20 mg tablet,delayed release 40 mg (2 x 20 mg) PO DAILY 30 days #30 tabs 03/02/23 [Rx Last Taken Unknown] cephalexin 500 mg capsule 500 mg PO TID 10 days #30 caps 05/09/23 [Rx Last Taken Unknown] Allergy/AdvReac Type Severity Reaction Status Date / Time vancomycin Allergy local Verified 05/09/23 09:30 rash/hives to IV site Milk Containing Products AdvReac Diarrhea Verified 05/08/23 20:36 (Dairy) [Milk Containing Products] Family History Father Polysubstance overdose Patient father young secondary to OD. Mother Iron deficiency anemia Other Asthma CVA (cerebral vascular accident) Diabetes Hypertension Thyroid disorder Surgical History H/O right knee surgery History of surgery on extremity Hx of knee surgery Social History housing: other details: Lives with his grandmother, aunt and mother. Smoking Status: Never smoker alcohol intake: current alcohol intake frequency: a few times a month substance use type: does not use ROS Constitutional Constitutional: Denies chills, fever(s), night sweats or weakness Eyes Eyes: Denies diplopia, dry eyes or eye pain ENT HEENT: Denies dizziness, nasal obstruction or sore throat Cardiovascular Cardiovascular: Denies chest pain, claudication or palpitations Respiratory/Chest Respiratory/Chest: Denies cough, dyspnea or pain on inspiration Gastrointestinal Gastrointestinal: Denies constipation, diarrhea, dysphagia, nausea or vomiting Genitourinary Genitourinary: Denies dysuria, urinary frequency, urinary hesitancy, urinary incontinence or urinary urgency Musculoskeletal Musculoskeletal: Denies joint pain, numbness or tingling Integumentary Integumentary: Denies jaundice, lesions or pruritus Neurologic Neurologic: Denies dizziness, numbness or tingling Endocrine Endocrinology: Denies cold intolerance or heat intolerance Hematologic/Lymphatic Hematologic/Lymphatic: Denies easy bleeding or easy bruising Allergic/Immunologic Allergic/Immunologic: Denies wheezing Physical Exam Const alert, oriented x3 and no apparent distress HEENT normocephalic Eyes General Eye: normal appearance of both eyes Neck General: normal visual inspection Lymph Lymphatic: no lymphadenopathy noted and no lymphedema noted Resp normal respiratory effort Cardio regular rate and regular rhythm Extremity normal capillary refill, no joint enlargement, no calf tenderness and no pedal edema Extremity Narrative: DP and PT pulses palpable bilateral with adequate capillary fill time to the digits bilateral. Dermatological: There is multiple abrasions to the anterior aspect of the left lower extremity. No erythema, no purulent drainage, no malodor, no palpable fluctuance/bogginess, no lymphangitic streaking. There is bilateral wound noted to the distal medial aspect of the hallux at previous site of blister. No erythema, no purulent drainage, no malodor, no palpable fluctuance/bogginess, no lymphangitic streaking. Sites are stable. Musculoskeletal: Muscle strength 5 of 5 age-appropriate. No pain to palpation of the bones of the foot or ankle Skin no rashes or lesions noted, skin turgor normal and no jaundice Neuro moves all extremities Lab / Micro Data 05/09/23 06:30 05/09/23 06:30 Labs: Laboratory Results - last 24 hr 05/08/23 21:26: S.aureus Protein A PCR POSITIVE H, MRSA (PCR) Negative 05/08/23 21:36: WBC 4.4, RBC 4.46 L, Hgb 10.2 L, Hct 32.5 L, MCV 72.9 L, MCH 22.9 L, MCHC 31.4 L, RDW Std Deviation 43.4, RDW Coeff of Rabia 16.4 H, Plt Count 390, MPV 9.2, Immature Gran % (Auto) 0.200, Neut % (Auto) 59.6, Lymph % (Auto) 31.3, Teller % (Auto) 6.6, Eos % (Auto) 1.4, Baso % (Auto) 0.9, Absolute Neuts (auto) 2.6, Absolute Lymphs (auto) 1.37, Nucleated RBC % 0, ESR 42 H, Sodium 133 L, Potassium 4.0, Chloride 99, Carbon Dioxide 23.0, Anion Gap 11, BUN 10, Creatinine 1.08, Estim Creat Clear Calc 121.25, Est GFR (MDRD) Af Amer 110, Est GFR (MDRD) Non-Af 91, BUN/Creatinine Ratio 9.3 L, Glucose 673 H*, Calcium 8.9, Total Bilirubin 0.50, AST 14 L, ALT 21, Alkaline Phosphatase 137 H, Troponin I High Sens 4, C-React Prot Ext Range < 2.90, Total Protein 7.3, Albumin 3.3, Globulin 4.0, Albumin/Globulin Ratio 0.8 L, Acetone Level NEGATIVE 05/08/23 22:40: Urine Color Yellow, Urine Clarity Clear, Urine pH 6.5, Ur Specific [place] 1.010, Urine Protein Negative, Urine Glucose (UA) 1000 H, Urine Ketones Negative, Urine Occult Blood Negative, Urine Nitrite Negative, Urine Bilirubin Negative, Urine Urobilinogen Normal, Ur Leukocyte Esterase Negative, Urine RBC 0 SEEN, Urine WBC 0 SEEN, Ur Squamous Epith Cells 0-5 SEEN, Urine Bacteria 0 SEEN, Urine Mucus 0 SEEN 05/08/23 23:34: POC Glucose 492 H* 05/09/23 00:46: POC Glucose 472 H* 05/09/23 04:32: POC Glucose 178 H 05/09/23 06:30: WBC 5.4, RBC 4.41 L, Hgb 10.1 L, Hct 32.7 L, MCV 74.1 L, MCH 22.9 L, MCHC 30.9 L, RDW Std Deviation 43.8, RDW Coeff of Rabia 16.4 H, Plt Count 356, MPV 8.9, Immature Gran % (Auto) 0.400, Neut % (Auto) 54.3, Lymph % (Auto) 35.3, Teller % (Auto) 7.4, Eos % (Auto) 2.2, Baso % (Auto) 0.4, Absolute Neuts (auto) 2.9, Absolute Lymphs (auto) 1.91, Nucleated RBC % 0, Sodium 140, Potassium 3.2 L, Chloride 109 H, Carbon Dioxide 24.0, Anion Gap 7, BUN 8, Creatinine 0.60 L, Estim Creat Clear Calc 218.25, Est GFR (MDRD) Af Amer 214, Est GFR (MDRD) Non-Af 177, BUN/Creatinine Ratio 13.2, Glucose 91, Calcium 8.8, Total Bilirubin 0.40, AST 17, ALT 18, Alkaline Phosphatase 116, Total Protein 6.7, Albumin 2.9 L, Globulin 3.8, Albumin/Globulin Ratio 0.8 L Radiology Impression Lower Extremity CT 05/08/23 21:57 IMPRESSION: Mild subcutaneous edema may be consistent with cellulitis. No specific evidence of osteomyelitis. MRI may be more sensitive for evaluation. Electronically Signed: Catia Burnette MD at 23:54 EDT , Foot X-Ray 05/08/23 22:10 IMPRESSION: Bony demineralization. No visualized fracture. No visualized obvious bony erosion or soft tissue edema. Electronically Signed: Valerie Coleman MD at 0:34 EDT , Foot X-Ray 05/08/23 22:10 IMPRESSION: No evidence of fracture. Electronically Signed: Catia Burnette MD at 22:50 EDT , Tibia/Fibula X-Ray 05/08/23 22:10 IMPRESSION: Soft tissue swelling. No evidence of fracture. Electronically Signed: Catia Burnette MD at 22:48 EDT ,
[2023-05-09 07:57] VITALS: O2SAT 93
--- NOTE | 2023-05-09 08:17 | WOUNDNOTE ---
wound photo: left lower leg
--- NOTE | 2023-05-09 08:18 | WOUNDNOTE ---
wound photo: left great toe
--- NOTE | 2023-05-09 08:19 | WOUNDNOTE ---
wound photo: right great toe
[2023-05-09 08:30] VITALS: BP 135/88; PULSE 96; RESP 18; TEMP 36.6; O2SAT 100
[2023-05-09] MEDS: Pantoprazole Sodium 40 MG Tablet PO (08:36)
[2023-05-09] MEDS: Vancomycin IV 1,000 MG/200 ML BAG 200 MG IV (08:36)
[2023-05-09] MEDS: Potassium Chloride Oral Soln 20 MEQ/15 ML UDC PO (08:36)
[2023-05-09] MEDS: Insulin Lispro 100 UNIT/ML INSULN.PEN 25 UNIT SC (08:38)
--- NOTE | 2023-05-09 09:00 | NURSING ---
SAMPLE SHOE INSPECTOR AND REWORKER reported to this RN that patient's iv site was looking red and blistered. core measures abstractor went into room to check and IV was stopped and removed. Vanc was running through IV at the time. Will notify dr. welch.
[2023-05-09 09:02] LABS: Bedside Glucose 135 mg/dL (74-106)
--- NOTE | 2023-05-09 09:33 | DCINST_ITS ---
Discharge Instructions Diet Discharge Diet: Carb Control Diet Activity Discharge Activity: Return to Normal Activity Dressing / Incision Call your doctor if you observe: Fever of 101 or Higher, Shortness of breath, Dizziness, Fainting spells, Swelling in the ankles, Chest pain and Increased palpitations (irregular heartbeat) Follow Up Care Test Results: Test results from this visit will be discussed in further detail at your follow- up appointment, if applicable. Discharge Plan Admission Admit Date/Time: 05/08/23 23:30 Attending Provider: Dean Jiménez Primary Care Provider: Mario Reyes Consulting Providers: Mauri Alas; Ashley Kapoor Discharge Orders/Prescriptions Prescriptions: New cephalexin 500 mg capsule 500 mg PO TID 10 Days Qty: 30 0RF Continued insulin lispro [Humalog KwikPen Insulin] 100 unit/mL insulin pen See Protocol subcut ACHS Protocol: 1. Sliding Scale Insulin Low Dosing Condition: 150-224 mg/dl = 1 unit Condition: 225-299 mg/dl = 2 units Condition: 300-374 mg/dl = 3 units Condition: 375-499 mg/dl = 4 units Condition: Greater than 449 call physician Protocol Text: - Use for Total Daily Dose of Insulin 15-27 units - Thin, elderly, renal patients LOW DOSING ALGORITHM acetaminophen [Tylenol] 325 mg Tablet 325 mg PO Q6H PRN (Reason: Pain) potassium chloride 20 mEq/15 mL liquid 20 meq PO BID Qty: 1200 0RF Hold Instructions: Hold while taking Neutra-Phos. Xarelto 20 mg Tablet 20 mg PO DAILY Qty: 30 1RF (DME) OneTouch Verio test strips Strip See Rx Instructions .ROUTE .MEDSUPPLY Rx Instructions: 4x/day (DME) pen needle, diabetic [BD Ultra-Fine Lorin Pen Needle] 32 gauge x 5/32 needle See Rx Instructions .ROUTE .MEDSUPPLY Rx Instructions: As directed (DME) FreeStyle Niru 14 Day Sensor Kit See Rx Instructions .ROUTE .MEDSUPPLY Rx Instructions: As directed insulin lispro 100 unit/mL insulin pen 25 unit subcut TIDAC Qty: 15 0RF Rx Instructions: Hold if glucose less than 130 mg/dl insulin glargine [Lantus Solostar U-100 Insulin] 100 unit/mL (3 mL) insulin pen 40 unit SUBCUT BID Qty: 15 2RF omeprazole 20 mg Tablet,Delayed Release (Dr/Ec) 40 mg PO DAILY 30 Days Qty: 30 2RF Referrals / Follow Up: Mauri Alas DPM [Med Staff - Active Staff] - Within 1 Month Mario Reyes MD [Primary Care Provider] - Within 1 Week Disposition Disposition (needs filled in before D/C Order can be placed): Home, Self Care
--- NOTE | 2023-05-09 10:06 | PCM.DC.SUM ---
Providers Date of Admission: 05/08/23 Primary Care Physician: Dr. Mario Reyes MD Consultations 05/09/23 00:31 Consult: Onc/Wound/dosier operator Routine Comment: Reason for Consult:: BL toe wound, LLE anterior glez wound Consult: Podiatry Routine Consulting Provider: Mauri Alas Reason for Consult: BL great toe wounds, LLE anterior glez wound, diabetic. EMERGENT Consult: No MD Notified: Yes Date Notified: 05/08/23 Time Notified: 23:33 Method of Notification: Text Reason For Visit: BL LE DIABETIC FOOT WOUNDS Diagnosis Discharge Diagnosis (1) Diabetic foot infection: Status: Acute Code(s): E11.628 - Type 2 diabetes mellitus with other skin complications; L08.9 - Local infection of the skin and subcutaneous tissue, unspecified Medications at Discharge Home Medications insulin lispro 100 unit/mL subcutaneous pen (Humalog KwikPen (U-100) Insulin) See Protocol subcut ACHS DM 07/24/22 acetaminophen 325 mg tablet (Tylenol) 325 mg PO Q6H PRN Pain 01/10/23 potassium chloride 20 mEq/15 mL oral liquid 20 meq (15 mL) PO BID #1,200 mL 01/23/23 rivaroxaban 20 mg tablet (Xarelto) 20 mg PO DAILY BLOOD THINNER #30 tabs 01/23/23 blood sugar diagnostic (OneTouch Verio test strips) 02/27/23 flash glucose sensor (FreeStyle Niru 14 Day Sensor kit) 02/27/23 pen needle, diabetic 32 gauge x 5/32 (BD Ultra-Fine Lorin Pen Needle) 02/27/23 insulin glargine 100 unit/mL (3 mL) subcutaneous pen (Lantus Solostar U-100 Insulin) 40 unit (0.4 mL) subcut BID DIABETES #15 mL 03/02/23 insulin lispro 100 unit/mL subcutaneous pen 25 unit (0.25 mL) subcut TIDAC DIABETES #15 mL 03/02/23 omeprazole 20 mg tablet,delayed release 40 mg (2 x 20 mg) PO DAILY 30 days #30 tabs 03/02/23 cephalexin 500 mg capsule 500 mg PO TID 10 days #30 caps 05/09/23 Hospital Course Operations None Procedures None Summary of Care Provided Minutes Spent on Discharge: 36 Hospital Course: Per HPI: The patient is a 22 y/o M w/ PMHx: Hx VTE (DVT, PE on xarelto), Uncontrolled Diabetes mellitus type I with frequent DKA presentations noncomplaint with his insulin and diet, Chronic severe protein calorie malnutrition, Hx 2021 pericarditis/pericardial infection (Treated at [facility], MSSA infection treated with abx therapy), History Stage II L buttock pressure, recent discharge 04/12/23 following treatment and evaluation for DKA with metabolic encephalopathy who now represents to the [facility] ED on 05/08/23 with history of progressively worsening wounds to his bilateral great toes with elevated blood sugars and tachycardia as well as a left anterior glez wound with discharge all starting on Sunday prior to ED presentation prompting ED evaluation. He states that he has been wearing shoes and socks and has had no associated fevers or chills. He denies any recent swimming or specific injury to the regions. Work-up in the ED included T98.8, heart rate 130 improving to 107, BP 127/76, respiratory rate 16, 100% on room air, CBC with WBC 4.4, hemoglobin 10.2, MCV 72.9, platelet 390 without marked shift, CMP with sodium 133, anion gap 11, BUN/creatinine 10/1.08, glucose 673, hepatic profile with alk phos 137 otherwise not marked appearing, troponin 4, acetone level negative, wound culture obtained from great toe wounds bilaterally, plain film of BL foot with no obvious acute endings however, only right plain film of the foot with no acute evidence of fracture and awaiting left foot final read, plain film of the left tibia/fibula with soft tissue swelling with no acute evidence of fracture, upon evaluation pending CT left tib/fib. In the ED patient administered 2 L normal saline, IV vancomycin and IV Zosyn therapy. Hospital Course: 1. Bilateral lower extremity great toe abrasions/type 1 diabetes with noncompliance?22-year-old male presented to the hospital after his grandmother brought him socks and shoes are little too small. He developed some abrasions on his toes and presented to the hospital due to the odor. White count was normal and he is afebrile. His feet were evaluated by by podiatry as well as wound care nurse neither of whom felt that he was significantly infected. He tested positive for Staph aureus but negative for MRSA and in discussion with podiatry felt that it would be safe to discharge him home with outpatient follow-up. Blood sugars are controlled today, though with his previous history of noncompliance there is no guarantee that his blood sugars will stay controlled. We will plan for 500 mg of p.o. Keflex 3 times daily for 10 days and outpatient follow-up with his PCP and podiatry. I discussed with him the plan for discharge today he expressed understanding of the risk benefits going home and would like to go home today. 2. History of VTE, GERD, chronic pressure ulcers are all chronic medical conditions which complicate his care. His home medications were continued where appropriate Physical Exam Narrative General: Alert, Oriented x3, Cooperative, No apparent distress HEENT: Atraumatic, PERRLA, EOMI, Normocephalic Oral: Moist Mucosa Neck: Supple, No JVD Lungs: Diminished, Normal air movement, No rhonchi, No wheeze, No rales Cardiovascular: Regular rate, Regular Rhythm, Normal S1, Normal S2, No murmurs Abdomen: Soft, Non Tender, Non-Distended, No Hepato-splenomegaly Extremities: No edema, Capillary Refill Less than 3 Seconds Skin: Wounds are dressed photos reviewed no signs of infection Musculoskeletal: No Tenderness to Palpation of Joints or Extremities Neurological: Cranial nerves II-XII grossly intact, Motor Exam 5/5 strength throughout, Sensory exam intact to light touch and pain Psych/Mental Status: Normal Affect, Appropriate Weight / BMI Weight Weight: 199 lb 8 oz Body Mass Index (BMI) 26.3 ABG / Lab / Microbiology Data 05/09/23 06:30 05/09/23 06:30 Laboratory: Laboratory Results - last 24 hr 05/08/23 21:26: S.aureus Protein A PCR POSITIVE H, MRSA (PCR) Negative 05/08/23 21:36: WBC 4.4, RBC 4.46 L, Hgb 10.2 L, Hct 32.5 L, MCV 72.9 L, MCH 22.9 L, MCHC 31.4 L, RDW Std Deviation 43.4, RDW Coeff of Rabia 16.4 H, Plt Count 390, MPV 9.2, Immature Gran % (Auto) 0.200, Neut % (Auto) 59.6, Lymph % (Auto) 31.3, [place] % (Auto) 6.6, Eos % (Auto) 1.4, Baso % (Auto) 0.9, Absolute Neuts (auto) 2.6, Absolute Lymphs (auto) 1.37, Nucleated RBC % 0, ESR 42 H, Sodium 133 L, Potassium 4.0, Chloride 99, Carbon Dioxide 23.0, Anion Gap 11, BUN 10, Creatinine 1.08, Estim Creat Clear Calc 121.25, Est GFR (MDRD) Af Amer 110, Est GFR (MDRD) Non-Af 91, BUN/Creatinine Ratio 9.3 L, Glucose 673 H*, Calcium 8.9, Total Bilirubin 0.50, AST 14 L, ALT 21, Alkaline Phosphatase 137 H, Troponin I High Sens 4, C-React Prot Ext Range < 2.90, Total Protein 7.3, Albumin 3.3, Globulin 4.0, Albumin/Globulin Ratio 0.8 L, Acetone Level NEGATIVE 05/08/23 22:40: Urine Color Yellow, Urine Clarity Clear, Urine pH 6.5, Ur Specific [place] 1.010, Urine Protein Negative, Urine Glucose (UA) 1000 H, Urine Ketones Negative, Urine Occult Blood Negative, Urine Nitrite Negative, Urine Bilirubin Negative, Urine Urobilinogen Normal, Ur Leukocyte Esterase Negative, Urine RBC 0 SEEN, Urine WBC 0 SEEN, Ur Squamous Epith Cells 0-5 SEEN, Urine Bacteria 0 SEEN, Urine Mucus 0 SEEN 05/08/23 23:34: POC Glucose 492 H* 05/09/23 00:46: POC Glucose 472 H* 05/09/23 04:32: POC Glucose 178 H 05/09/23 06:30: WBC 5.4, RBC 4.41 L, Hgb 10.1 L, Hct 32.7 L, MCV 74.1 L, MCH 22.9 L, MCHC 30.9 L, RDW Std Deviation 43.8, RDW Coeff of Rabia 16.4 H, Plt Count 356, MPV 8.9, Immature Gran % (Auto) 0.400, Neut % (Auto) 54.3, Lymph % (Auto) 35.3, [place] % (Auto) 7.4, Eos % (Auto) 2.2, Baso % (Auto) 0.4, Absolute Neuts (auto) 2.9, Absolute Lymphs (auto) 1.91, Nucleated RBC % 0, Sodium 140, Potassium 3.2 L, Chloride 109 H, Carbon Dioxide 24.0, Anion Gap 7, BUN 8, Creatinine 0.60 L, Estim Creat Clear Calc 218.25, Est GFR (MDRD) Af Amer 214, Est GFR (MDRD) Non-Af 177, BUN/Creatinine Ratio 13.2, Glucose 91, Calcium 8.8, Total Bilirubin 0.40, AST 17, ALT 18, Alkaline Phosphatase 116, Total Protein 6.7, Albumin 2.9 L, Globulin 3.8, Albumin/Globulin Ratio 0.8 L 05/09/23 08:28: POC Glucose 135 H Radiography Diagnostic Testing: Radiology Impression Lower Extremity CT 05/08/23 21:57 IMPRESSION: Mild subcutaneous edema may be consistent with cellulitis. No specific evidence of osteomyelitis. MRI may be more sensitive for evaluation. Electronically Signed: Catia Burnette MD at 23:54 EDT , Foot X-Ray 05/08/23 22:10 IMPRESSION: Bony demineralization. No visualized fracture. No visualized obvious bony erosion or soft tissue edema. Electronically Signed: Valerie Coleman MD at 0:34 EDT , Foot X-Ray 05/08/23 22:10 IMPRESSION: No evidence of fracture. Electronically Signed: Catia Burnette MD at 22:50 EDT , Tibia/Fibula X-Ray 05/08/23 22:10 IMPRESSION: Soft tissue swelling. No evidence of fracture. Electronically Signed: Catia Burnette MD at 22:48 EDT , D/C Instructions Discharge Diet: Carb Control Diet Call your doctor if you observe: Fever of 101 or Higher, Shortness of breath, Dizziness, Fainting spells, Swelling in the ankles, Chest pain and Increased palpitations (irregular heartbeat) Meaningful Use Info Meaningful Use Diagnoses (Choose all that apply): None applicable Discharge Plan Admission Admit Date/Time: 05/08/23 23:30 Attending Provider: Dean Jiménez Primary Care Provider: Mario Reyes Consulting Providers: Mauri Alas; Ashley Kapoor Discharge Orders/Prescriptions Prescriptions: New cephalexin 500 mg capsule 500 mg PO TID 10 Days Qty: 30 0RF Continued insulin lispro [Humalog KwikPen Insulin] 100 unit/mL insulin pen See Protocol subcut [facility] Protocol: 1. Sliding Scale Insulin Low Dosing Condition: 150-224 mg/dl = 1 unit Condition: 225-299 mg/dl = 2 units Condition: 300-374 mg/dl = 3 units Condition: 375-499 mg/dl = 4 units Condition: Greater than 449 call physician Protocol Text: - Use for Total Daily Dose of Insulin 15-27 units - Thin, elderly, renal patients LOW DOSING ALGORITHM acetaminophen [Tylenol] 325 mg Tablet 325 mg PO Q6H PRN (Reason: Pain) potassium chloride 20 mEq/15 mL liquid 20 meq PO BID Qty: 1200 0RF Hold Instructions: Hold while taking Neutra-Phos. Xarelto 20 mg Tablet 20 mg PO DAILY Qty: 30 1RF (DME) OneTouch Verio test strips Strip See Rx Instructions .ROUTE .MEDSUPPLY Rx Instructions: 4x/day (DME) pen needle, diabetic [BD Ultra-Fine Lorin Pen Needle] 32 gauge x 5/32 needle See Rx Instructions .ROUTE .MEDSUPPLY Rx Instructions: As directed (DME) FreeStyle Niru 14 Day Sensor Kit See Rx Instructions .ROUTE .MEDSUPPLY Rx Instructions: As directed insulin lispro 100 unit/mL insulin pen 25 unit subcut TIDAC Qty: 15 0RF Rx Instructions: Hold if glucose less than 130 mg/dl insulin glargine [Lantus Solostar U-100 Insulin] 100 unit/mL (3 mL) insulin pen 40 unit SUBCUT BID Qty: 15 2RF omeprazole 20 mg Tablet,Delayed Release (Dr/Ec) 40 mg PO DAILY 30 Days Qty: 30 2RF Referrals / Follow Up: Mauri Alas DPM [Med Staff - Active Staff] - Within 1 Month Mario Reyes MD [Primary Care Provider] - Within 1 Week Disposition Disposition (needs filled in before D/C Order can be placed): Home, Self Care Charges/Coding Visit Charges Inpatient E&M: 69462 Disch Hosp >30min
--- NOTE | 2023-05-09 10:20 | CASEMGMT ---
Addendum entered by Margoth Jeronimo 05/09/23 11:19: Spoke with charge nurse, is not accepting Medicaid pts so pt will need to see the [facility]. She made appt for Jun 14 which is the soonest and they put pt on cancellation list. Spoke with Wilfredo at [facility]. She is aware of appt and will encourage pt to follow through with appt. Original Note: RN CM Readmission Note Previous Admission:? 04/10/23-04/12/23? Diagnosis:?DKA DC Disposition: Home with?CCN and Patient Link Current Admission? Current Diagnosis: Bilat LE Diabetic Foot Wounds Pt presented to ER with worsening bilat toe wounds and glez wound. Pt seen by podiatry with wound care orders and follow up in the office. VERONA FONTANEZ into pt room, pt states that he is doing well at home. States that he is being visited weekly by [facility] and also using Pt Link but his entries are not timely. Pt states he did follow up with since last hospital stay but has not [facility] d[facility]t [facility]. Asked pt if he can use transportation through his insurance and he states he needs to know greater than a week ahead to do this and the [facility] does not give him that much notice. Encouraged him to discuss this with them to see if this can be worked out. Pt states his blood sugars have been running good until yesterday. He states he has sufficient supply of insulin as well as CGM supplies. Discussed wound care with pt, he feels that he or his grandma will be able to perform wound care. Spoke with wound nurse, pt will be sent home with supplies. Pt states he also has many supplies left over from a prior wound. Pt would like [facility] to continue. Notified Wilfredo at [facility]. Pt reports constant diarrhea and asks this VERONA FONTANEZ to notify his nurse, did so at this time. DC Plan: Home with [facility] and Pt Link
[2023-05-09 10:26] LABS: Bedside Glucose 110 mg/dL (74-106)
--- NOTE | 2023-05-09 11:45 | PHA.DC.MC.R ---
Pharmacy [facility] Service has performed discharge medication reconciliation and counseling for this patient. Patient counseled via telephone. 1. CEPHALEXIN 500MG PO TID X 10 DAYS The patient's discharge medication list was reviewed for discrepancies and discrepancies were resolved. The patient was counseled on the following discharge medications and changes in medications for homegoing were reviewed. The Reason for Use, instructions for use, and potential side effects were reviewed for all new medications. The patient's questions regarding all of their medications were answered. The patient was able to verbally demonstrate an understanding of their discharge medications. Medications at Discharge Home Medications insulin lispro 100 unit/mL subcutaneous pen (Humalog KwikPen (U-100) Insulin) See Protocol subcut ACHS DM 07/24/22 acetaminophen 325 mg tablet (Tylenol) 325 mg PO Q6H PRN Pain 01/10/23 potassium chloride 20 mEq/15 mL oral liquid 20 meq (15 mL) PO BID #1,200 mL 01/23/23 rivaroxaban 20 mg tablet (Xarelto) 20 mg PO DAILY BLOOD THINNER #30 tabs 01/23/23 blood sugar diagnostic (OneTouch Verio test strips) 02/27/23 flash glucose sensor (FreeStyle Niru 14 Day Sensor kit) 02/27/23 pen needle, diabetic 32 gauge x 5/32 (BD Ultra-Fine Lorin Pen Needle) 02/27/23 insulin glargine 100 unit/mL (3 mL) subcutaneous pen (Lantus Solostar U-100 Insulin) 40 unit (0.4 mL) subcut BID DIABETES #15 mL 03/02/23 insulin lispro 100 unit/mL subcutaneous pen 25 unit (0.25 mL) subcut TIDAC DIABETES #15 mL 03/02/23 omeprazole 20 mg tablet,delayed release 40 mg (2 x 20 mg) PO DAILY 30 days #30 tabs 03/02/23 cephalexin 500 mg capsule 500 mg PO TID 10 days #30 caps 05/09/23
[2023-05-09 12:27] LABS: Bedside Glucose 70 mg/dL (74-106)
== END 2023-05-09 13:00 | disposition home or self-care (01) | DRG 380 ==
LOC: ED 23:54 → MS3 05-09 00:18
PROVIDERS: Admitting Provider Family Medicine; Emergency Provider Student in an Organized Health Care Education/Training Program; PCP Internal Medicine; Visit Provider Family Medicine
DX: E10.621 Type 1 diabetes mellitus with foot ulcer (principal); L97.512 Non-pressure chronic ulcer of other part of right foot with fat layer exposed; L97.522 Non-pressure chronic ulcer of other part of left foot with fat layer exposed; E43 Unspecified severe protein-calorie malnutrition; E10.65 Type 1 diabetes mellitus with hyperglycemia; B95.61 Methicillin susceptible Staphylococcus aureus infection as the cause of diseases classified elsewhere; B95.4 Other streptococcus as the cause of diseases classified elsewhere; B96.4 Proteus (mirabilis) (morganii) as the cause of diseases classified elsewhere; Z79.4 Long term (current) use of insulin; E73.9 Lactose intolerance, unspecified; K21.9 Gastro-esophageal reflux disease without esophagitis; S80.812A Abrasion, left lower leg, initial encounter; X58.XXXA Exposure to other specified factors, initial encounter; Z68.26 Body mass index [BMI] 26.0-26.9, adult; Z91.119 Patient's noncompliance with dietary regimen due to unspecified reason; Z91.148 Patient's other noncompliance with medication regimen for other reason; Z79.01 Long term (current) use of anticoagulants; Z79.899 Other long term (current) drug therapy; Z86.718 Personal history of other venous thrombosis and embolism
CPT/HCPCS: 36415; 73590; 73630; 73701; 80053; 80202; 81001; 82009; 82962; 84484; 85025; 85652; 86140; 87070; 87075; 87077; 87186; 87205; 87640; 93005; 99284; J7030; J7050; Q9967; A4216

== ENCOUNTER 2023-06-07 14:09 | Inpatient (IN) | payer MEDICAID, SELFPAY ==
[2023-06-07] VITALS (15 sets, daily range): BP systolic 109–149; BP diastolic 50–84; PULSE 116–130; RESP 20–37; TEMP 36.4–36.8; O2SAT 100; BMI 23.8; BMI 23.6
--- NOTE | 2023-06-07 14:17 | EKG12_ITS ---
Test Reason : Blood Pressure : / mmHG Vent. Rate : 128 BPM Atrial Rate : 128 BPM P-R Int : 134 ms QRS Dur : 094 ms QT Int : 324 ms P-R-T Axes : 057 053 042 degrees QTc Int : 473 ms Sinus tachycardia Otherwise normal ECG Confirmed by YANE CASTILLO, ROXANNE ([id number]), index editor AYESHA VALLE ([id number]) on 06/08/2023 9:15:21 AM Referred By: CHRISTINA Confirmed By:ROXANNE CHE MD
[2023-06-07] MEDS: 0.9% Normal Saline 1,000 ML 999 ML IV ×3 (14:30→17:01)
--- NOTE | 2023-06-07 14:35 | EX.ED.DYSGE1 ---
HPI History of Present Illness Chief Complaint: Hyperglycemia Limited: stupor Narrative Narrative: Patient is a 22-year-old male with history of insulin-dependent diabetes mellitus, medication noncompliance and multiple admissions for DKA presenting for altered mental status and hyperglycemia. Patient is a poor historian likely secondary to metabolic encephalopathy. I have seen him multiple times for the same presentation. When asked with last time he took insulin he says I do not know. When asked if he has any other complaints or any discomfort he says no. PFSH [facility], [facility] Medical History (Updated 06/07/23 @ 16:[address] Virginia Nguyễn, DO) Anxiety AP window (aortopulmonary window) Asthma Depression Diabetes mellitus type 1 DVT (deep venous thrombosis) femur surgery GERD (gastroesophageal reflux disease) History of medication noncompliance Hypokalemia Hypokalemia Kidney disease Lower extremity edema Nausea and vomiting Non-smoker Noncompliance Noncompliance with diabetes treatment Nonhealing surgical wound Psychosocial problem Severe protein-calorie malnutrition Sinus tachycardia seen on [place] Type 1 diabetes Ulcer of leg, chronic Wound of left lower extremity Home Medications insulin lispro 100 unit/mL subcutaneous pen (Humalog KwikPen (U-100) Insulin) See Protocol subcut ACHS DM 07/24/22 [History Last Taken Unknown] acetaminophen 325 mg tablet (Tylenol) 325 mg PO Q6H PRN Pain 01/10/23 [History Last Taken 01/09/23] potassium chloride 20 mEq/15 mL oral liquid 20 meq (15 mL) PO BID #1,200 mL 01/23/23 [Rx Last Taken Unknown] rivaroxaban 20 mg tablet (Xarelto) 20 mg PO DAILY BLOOD THINNER #30 tabs 01/23/23 [Rx Last Taken Unknown] blood sugar diagnostic (OneTouch Verio test strips) 02/27/23 [History Last Taken Unknown] flash glucose sensor (FreeStyle Niru 14 Day Sensor kit) 02/27/23 [History Last Taken Unknown] pen needle, diabetic 32 gauge x /32 (BD Ultra-Fine Lorin Pen Needle) 02/27/23 [History Last Taken Unknown] insulin glargine 100 unit/mL (3 mL) subcutaneous pen (Lantus Solostar U-100 Insulin) 40 unit (0.4 mL) subcut BID DIABETES #15 mL 03/02/23 [Rx Last Taken Unknown] insulin lispro 100 unit/mL subcutaneous pen 25 unit (0.25 mL) subcut TIDAC DIABETES #15 mL 03/02/23 [Rx Last Taken Unknown] omeprazole 20 mg tablet,delayed release 40 mg (2 x 20 mg) PO DAILY 30 days #30 tabs 03/02/23 [Rx Last Taken Unknown] cephalexin 500 mg capsule 500 mg PO TID 10 days #30 caps 05/09/23 [Rx Last Taken Unknown] Allergy/AdvReac Type Severity Reaction Status Date / Time vancomycin Allergy local Verified 05/09/23 09:30 rash/hives to IV site Milk Containing Products AdvReac Diarrhea Verified 05/08/23 20:36 (Dairy) [Milk Containing Products] Family History Father Polysubstance overdose Patient father young secondary to OD. Mother Iron deficiency anemia Other Asthma CVA (cerebral vascular accident) Diabetes Hypertension Thyroid disorder Surgical History H/O right knee surgery History of surgery on extremity Hx of knee surgery Social History housing: other details: Lives with his grandmother, aunt and mother. Smoking Status: Never smoker alcohol intake: current alcohol intake frequency: a few times a month substance use type: does not use ROS ROS ED Review of Systems ROS Unobtainable: due to encephalopathy EXAM Physical Exam Const Vital Signs: 06/07/23 14:11 06/07/23 14:13 06/07/23 14:14 Temperature 97.6 F L Temperature Source Temporal Pulse Rate 129 H Respiratory Rate 27 H Blood Pressure 128/75 H Blood Pressure Mean 92 Pulse Ox 100 Oxygen Delivery Method Room Air Constitutional Narrative: Unkept, ill-appearing HEENT Reports dry mucous membranes Mouth ED: Yes dry mucous membranes Mouth: dry mucous membranes Eyes PERRL and EOMs intact bilaterally Neck supple Chest Wall inspection of chest normal and palpation of chest normal Resp Resp Narrative: Tachypnea, Kussmaul respirations Cardio no murmurs Rate: tachycardic GI normal to inspection, nondistended, normoactive bowel sounds and non-tender Extremity General Extremety ED: Negative for edema General Extremity: Negative for edema Neuro Neuro Narrative: Oriented to self, somnolent Sensorium / Orientation: alert and orientation impaired Motor Exam: general weakness Skin no wounds MDM MDM MDM Narrative Medical decision making narrative: Patient evaluated for altered mental status, hyperglycemia and tachypnea. Presentation highly consistent with DKA. Patient is well-known to this ER for medication noncompliance and frequent episodes of DKA. IV access obtained. He is bolused 2 L of IV fluid. VBG shows metabolic acidosis with a pH of 6.773, PCO2 of 11 and bicarb of 1.6. Patient has a leukocytosis, RADHA, pseudohyponatremia, hyperglycemia, elevated anion gap metabolic acidosis and moderate acetone with significant ketonuria. Will be admitted to the ICU. Case is discussed with admitting physician, Dr. Uribe. Lab Data Attestation: I reviewed the patient's lab results. Labs: Laboratory Results - last 24 hr 06/07/23 06/07/23 06/07/23 14:25 14:53 15:02 WBC 18.2 H RBC 5.18 Hgb 12.0 L Hct 39.1 L MCV 75.5 L MCH 23.2 L MCHC 30.7 L RDW Std Deviation 40.7 RDW Coeff of Rabia 15.0 H Plt Count MPV 10.8 Immature Gran % (Auto) 0.700 Neut % (Auto) 76.5 H Lymph % (Auto) 16.8 L [place] % (Auto) 4.7 Eos % (Auto) 0.3 Baso % (Auto) 1.0 Absolute Neuts (auto) 13.9 H Absolute Lymphs (auto) 3.05 Nucleated RBC % 0 Platelet Estimate SLT INC Sodium 126 L Potassium 5.5 H Chloride 91 L Carbon Dioxide 7.0 L* Anion Gap 28 H BUN 19 H Creatinine 1.52 H Estim Creat Clear Calc 86.15 Est GFR (MDRD) Af Amer 74 Est GFR (MDRD) Non-Af 61 BUN/Creatinine Ratio 12.5 Glucose 784 H* Calcium 9.9 Phosphorus 8.0 H Magnesium 2.4 Urine Color Yellow Urine Clarity Sl. Cloudy Urine pH 5.0 Ur Specific [place] 1.020 Urine Protein 30 H Urine Glucose (UA) 1000 H Urine Ketones 150 A* Urine Occult Blood 10 H Urine Nitrite Negative Urine Bilirubin Negative Urine Urobilinogen Normal Ur Leukocyte Esterase Negative Urine RBC 0 SEEN Urine WBC 0-5 SEEN Ur Squamous Epith Cells 0 SEEN Urine Bacteria 0 SEEN Urine Mucus 0 SEEN Acetone Level MODERATE H POC Glucose > 500 H* Rhythm Strip Rhythm Strip: Sinus Tach Rate: 128 Ectopy: None EKG Initial EKG: Attestation: I personally reviewed and interpreted this EKG as follows: Interpretation: Sinus Tachycardia Comments: Sinus tachycardia rate of 120 bpm Normal axis Normal intervals Normal ST segments Management Discussion w/another healthcare provider: Hospitalist Critical Care Time Critical Care Time: Yes Critical care time (excluding procedures): 30-74 minutes (35), Including time spent:, Discussing w/Consultants and Arranging Admission or Transfer Discharge Plan Dx/Rx/DC Orders Clinical Impression: DKA, type 1, Hyperglycemia, RADHA (acute kidney injury), Pseudohyponatremia, Acute metabolic encephalopathy Disposition Disposition: Acute Care Hospital [facility] Discharge Date/Time: 06/07/23 16:09
[2023-06-07 14:40] LABS: Absolute Lymphocyte Count 3.05 X10^3/uL (0.83-4.51); Absolute Neutrophil Count 13.9 X10^3/uL (2.0-7.7); Basophil# 0.18 X10^3/uL; Eosinophil# 0.06 X10^3/uL; Eosinophils% 0.3 % (0-5); Hematocrit 39.1 % (40-54); Lymphocyte # 3.05 X10^3/ul (0.83-4.51); Lymphocyte % 16.8 % (19-41); Mean Corp Hgb Conc 30.7 g/dL (32-36); Mean Corpuscular Hgb 23.2 pg (27.0-32.0); Mean Corpuscular Volume 75.5 fL (80-94); Mean Platelet Vol. 10.8 fl (6.2-12.0); Monocyte# 0.85 X10^3/uL; Monocyte% 4.7 % (0-10); NRBC Flagged by Analyzer 0 % (0-5); Neutrophil # 13.92 X10^3/uL (2.7-7.7); Neutrophil % 76.5 % (47-70); POSITIVE COUNT YES; RBC Distribution Width SD 40.7 fl (35.1-43.9); Red Blood Count 5.18 M/mm3 (4.6-6.2); White Blood Count 18.2 K/mm3 (4.4-11.0)
[2023-06-07] MEDS: Ondansetron 4 MG/2 ML Vial IV (14:43)
[2023-06-07 15:04] LABS: Anion Gap 28 (5-15); BUN 19 mg/dL (7-18); BUN/Creat Ratio 12.5 RATIO (10-20); Calcium,Total 9.9 mg/dL (8.5-10.1); Chloride 91 mmol/L (98-107); Creatinine, Serum 1.52 mg/dL (0.70-1.30); EST Glomerular Filtration Rate 61 mL/min (>60); Est Glom Filt Rate - Afr Amer 74 mL/min (>60); Estimated Creatinine Clearance 86.15 ml/min; Glucose 784 mg/dL (74-106); Magnesium 2.4 mg/dL (1.6-2.6); Potassium 5.5 mmol/L (3.5-5.1); Sodium Level 126 mmol/L (136-145)
--- NOTE | 2023-06-07 15:05 | ED.RN ---
Clear yellow urine obtained. Grandmother at bedside. IV fluids infusing.
[2023-06-07 15:07] LABS: Differential Indicated SCAN CRITERIA MET
[2023-06-07 15:08] LABS: Platelet Estimate SLT INC (ADEQ)
[2023-06-07 15:20] LABS: Bedside Glucose > 500 mg/dL (74-106)
[2023-06-07 15:22] LABS: Bacteria 0 SEEN /hpf (None Seen); Color, Urine Yellow (Yellow); Glucose, Dipstick 1000 mg/dl (Normal); Leukocyte Esterase-Dipstick Negative /ul (Negative); Mucous, Urine 0 SEEN /hpf (<or=2+); Nitrite-Dipstick Negative (Negative); Occult Blood-Urine 10 /ul (Negative); Protein-Dipstick 30 mg/dl (Negative); Red Blood Cells-Urine 0 SEEN /hpf (0-5); Squamous Epithelial Cells - UA 0 SEEN /hpf (0-5); Urine Bilirubin Dipstick Negative (Negative); Urine Clarity Sl. Cloudy (Clear); Urine Urobilinogen Normal (Normal)
--- NOTE | 2023-06-07 15:30 | PCM.HP.STD ---
HPI - General General Date of Admission: 06/07/23 Date of Service: 06/07/23 Chief Complaint: Patient in DKA HPI Narrative SHIRA STEPHENSON, is a 22 M who frequently comes to the hospital for DKA last admission for DKA on 04/12/2023 came to ED with altered mental status and hypoglycemia. Patient has history of type 1 diabetes mellitus. Patient cannot give history by himself as he is having Kussmaul breathing, hard time in recollecting. When asked when was his last dose of insulin he states he does not remember what from nursing staff it seems he ran out and has not taken for few days to week. Its not clear when he was his last diet. Patient is confused cannot give history. He also did not answer about abdominal pain, burning micturition, nausea and vomiting. Complete history is unobtainable. Labs reviewed and discussed in assessment plan consistent with DKA. [facility] Medical History (Updated 06/07/23 @ 15:[address] 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 Type 1 diabetes Ulcer of leg, chronic Wound of left lower extremity Home Medications insulin lispro 100 unit/mL subcutaneous pen (Humalog KwikPen (U-100) Insulin) See Protocol subcut ACHS DM 07/24/22 [History Last Taken Unknown] acetaminophen 325 mg tablet (Tylenol) 325 mg PO Q6H PRN Pain 01/10/23 [History Last Taken 01/09/23] potassium chloride 20 mEq/15 mL oral liquid 20 meq (15 mL) PO BID #1,200 mL 01/23/23 [Rx Last Taken Unknown] rivaroxaban 20 mg tablet (Xarelto) 20 mg PO DAILY BLOOD THINNER #30 tabs 01/23/23 [Rx Last Taken Unknown] blood sugar diagnostic (OneTouch Verio test strips) 02/27/23 [History Last Taken Unknown] flash glucose sensor (FreeStyle Niru 14 Day Sensor kit) 02/27/23 [History Last Taken Unknown] pen needle, diabetic 32 gauge x (BD Ultra-Fine Lorin Pen Needle) 02/27/23 [History Last Taken Unknown] insulin glargine 100 unit/mL (3 mL) subcutaneous pen (Lantus Solostar U-100 Insulin) 40 unit (0.4 mL) subcut BID DIABETES #15 mL 03/02/23 [Rx Last Taken Unknown] insulin lispro 100 unit/mL subcutaneous pen 25 unit (0.25 mL) subcut TIDAC DIABETES #15 mL 03/02/23 [Rx Last Taken Unknown] omeprazole 20 mg tablet,delayed release 40 mg (2 x 20 mg) PO DAILY 30 days #30 tabs 03/02/23 [Rx Last Taken Unknown] cephalexin 500 mg capsule 500 mg PO TID 10 days #30 caps 05/09/23 [Rx Last Taken Unknown] Allergy/AdvReac Type Severity Reaction Status Date / Time vancomycin Allergy local Verified 05/09/23 09:30 rash/hives to IV site Milk Containing Products AdvReac Diarrhea Verified 05/08/23 20:36 (Dairy) [Milk Containing Products] Family History Father Polysubstance overdose Patient father young secondary to OD. Mother Iron deficiency anemia Other Asthma CVA (cerebral vascular accident) Diabetes Hypertension Thyroid disorder Surgical History H/O right knee surgery History of surgery on extremity Hx of knee surgery Social History housing: other details: Lives with his grandmother, aunt and mother. Smoking Status: Never smoker alcohol intake: current alcohol intake frequency: a few times a month substance use type: does not use ROS ROS Narrative 14 system ROS unobtainable as patient is encephalopathic. Review of Systems ROS Unobtainable: due to encephalopathy and due to mental condition Vital Signs Vital Signs Vital Signs: 06/07/23 14:11 06/07/23 14:13 06/07/23 14:14 Temperature 97.6 F L Temperature Source Temporal Pulse Rate 129 H Respiratory Rate 27 H Blood Pressure 128/75 H Blood Pressure Mean 92 Pulse Ox 100 Oxygen Delivery Method Room Air Weight Weight: 180 lb 5.41 oz Body Mass Index (BMI) 23.8 Physical Exam Narrative General: Eyes closed but not unconscious. Patient responds on multiple repetitive questioning states yes, no or I do not know HEENT: Atraumatic, PERRLA, EOMI, Normocephalic Oral: Oral mucosa dry. No Gingival or Mucosal Lesions/ Ulcerations Neck: Supple, No JVD, Negative Carotid Bruits Lungs: Air entry diminished in bilateral lung bases. Deep breathing mainly abdominal pattern. Some mild breathing. Cardiovascular: Sinus tachycardia, Normal S1, Normal S2, No murmurs Abdomen: Bowel Sounds Present, Soft, Non Tender, Non-Distended : No renal angle tenderness. No suprapubic tenderness. Extremities: No edema, Capillary Refill Less than 3 Seconds Skin: Purplish skin over foot mainly dorsal aspect. Old healed scar over left great toe and healed bruise over left lower leg, glez Musculoskeletal: ROM full and intact. No Tenderness to Palpation of Joints or Extremities Neurological: Encephalopathy, complete neuro exam unobtainable. Psych/Mental Status: Flat affect. Results Lab / Micro Data 06/07/23 14:25 06/07/23 14:25 Labs: Laboratory Results - last 24 hr 06/07/23 14:25: WBC 18.2 H, RBC 5.18, Hgb 12.0 L, Hct 39.1 L, MCV 75.5 L, MCH 23.2 L, MCHC 30.7 L, RDW Std Deviation 40.7, RDW Coeff of Rabia 15.0 H, Plt Count , MPV 10.8, Immature Gran % (Auto) 0.700, Neut % (Auto) 76.5 H, Lymph % (Auto) 16.8 L, [place] % (Auto) 4.7, Eos % (Auto) 0.3, Baso % (Auto) 1.0, Absolute Neuts (auto) 13.9 H, Absolute Lymphs (auto) 3.05, Nucleated RBC % 0, Platelet Estimate SLT INC, Sodium 126 L, Potassium 5.5 H, Chloride 91 L, Carbon Dioxide 7.0 L*, Anion Gap 28 H, BUN 19 H, Creatinine 1.52 H, Estim Creat Clear Calc 86.15, Est GFR (MDRD) Af Amer 74, Est GFR (MDRD) Non-Af 61, BUN/Creatinine Ratio 12.5, Glucose 784 H*, Calcium 9.9, Phosphorus 8.0 H, Magnesium 2.4 06/07/23 14:53: POC Glucose > 500 H* Assessment & Plan Assessment/Plan (1) Diabetic keto-acidosis: QUALIFIERS: Diabetes mellitus type: type 1 Diabetes mellitus complication detail: without coma Qualified Code(s): E10.10 - Type 1 diabetes mellitus with ketoacidosis without coma (2) Type 1 diabetes: QUALIFIERS: Diabetes mellitus complication status: with hyperglycemia Qualified Code(s): E10.65 - Type 1 diabetes mellitus with hyperglycemia PLAN: Plan This is a 22-year-old gentleman with history of type I.his blood is being admitted for DKA. 1. Type 1 diabetes mellitus complicated into DKA: Patient is being admitted in ICU. Patient removed his peripheral lines in ED and new IV line is getting inserted. On IV fluid normal saline as per DKA protocol. Patient will need about 2 to 3 L of fluid before starting insulin drip. Patient is severely dehydrated. Bicarb 6 7, anion gap 28. Glucose 784 in BMP. VBG is ordered. Twelve-lead EKG shows sinus tachycardia 2. Dehydration and electrolyte abnormality due to DKA and severe high anion gap metabolic acidosis: Patient has hyponatremia 126, hypertonic hypovolemic hyponatremia. IV fluid normal saline ordered. Potassium is 5.5 but will get automatically collected. Serum magnesium normal. Phosphorus 8.0. 3. Acute metabolic encephalopathy from DKA: Treat underlying disorder. 4. Bilateral great toe healed wound left glez wound: Currently the wound is healed, dry and scarred. Patient was last admitted on May 08, 2023. Patient was treated with IV antibiotics and discharged on cephalexin 5. RADHA: BUN 19, creatinine 1.52, prerenal in etiology. IV fluid normal saline. Monitor kidney function and electrolytes. 6. History of DVT and pulmonary embolism: Patient is on Xarelto and will continue it. 7. Anemia of chronic disease: Hemoglobin is 12.0. Platelet count clumped. 8. DVT prophylaxis on Xarelto. Full code. Laboratory Results 06/07/23 14:25: WBC 18.2 H, RBC 5.18, Hgb 12.0 L, Hct 39.1 L, MCV 75.5 L, MCH 23.2 L, MCHC 30.7 L, RDW Std Deviation 40.7, RDW Coeff of Rabia 15.0 H, Plt Count , MPV 10.8, Immature Gran % (Auto) 0.700, Neut % (Auto) 76.5 H, Lymph % (Auto) 16.8 L, [place] % (Auto) 4.7, Eos % (Auto) 0.3, Baso % (Auto) 1.0, Absolute Neuts (auto) 13.9 H, Absolute Lymphs (auto) 3.05, Nucleated RBC % 0, Platelet Estimate SLT INC, Sodium 126 L, Potassium 5.5 H, Chloride 91 L, Carbon Dioxide 7.0 L*, Anion Gap 28 H, BUN 19 H, Creatinine 1.52 H, Estim Creat Clear Calc 86.15, Est GFR (MDRD) Af Amer 74, Est GFR (MDRD) Non-Af 61, BUN/Creatinine Ratio 12.5, Glucose 784 H*, Calcium 9.9, Phosphorus 8.0 H, Magnesium 2.4, Acetone Level Pending 06/07/23 14:53: POC Glucose > 500 H* 06/07/23 15:02: Urine Color Yellow, Urine Clarity Sl. Cloudy, Urine pH 5.0, Ur Specific [place] 1.020, Urine Protein 30 H, Urine Glucose (UA) 1000 H, Urine Ketones 150 A*, Urine Occult Blood 10 H, Urine Nitrite Negative, Urine Bilirubin Negative, Urine Urobilinogen Normal, Ur Leukocyte Esterase Negative, Urine RBC 0 SEEN, Urine WBC 0-5 SEEN, Ur Squamous Epith Cells 0 SEEN, Urine Bacteria 0 SEEN, Urine Mucus 0 SEEN Charges/Coding Visit Charges Inpatient E&M: 80686 Init Hosp L3
--- NOTE | 2023-06-07 15:35 | NURSING ---
ICU JANNET DKA
[2023-06-07 15:48] LABS: Ketone-Dipstick 150 mg/dl (Negative)
--- NOTE | 2023-06-07 15:49 | NURSING ---
ICU 5
[2023-06-07 15:53] LABS: White Blood Cells 0-5 SEEN /hpf (0-5)
[2023-06-07] MEDS: 0.9% Normal Saline 1,000 ML 500 ML IV (16:39)
[2023-06-07 17:14] LABS: Anion Gap 34 (5-15); BUN 21 mg/dL (7-18); BUN/Creat Ratio 15.1 RATIO (10-20); Calcium,Total 9.5 mg/dL (8.5-10.1); Chloride 93 mmol/L (98-107); Creatinine, Serum 1.39 mg/dL (0.70-1.30); EST Glomerular Filtration Rate 68 mL/min (>60); Est Glom Filt Rate - Afr Amer 82 mL/min (>60); Estimated Creatinine Clearance 91.49 ml/min; Glucose 859 mg/dL (74-106); Potassium 5.6 mmol/L (3.5-5.1); Sodium Level 130 mmol/L (136-145)
[2023-06-07 17:18] LABS: Blood Gas Specimen Type VEN; VBG BASE EXCESS < -30 mmol/L (-1.0-3.5); VBG PO2 111 mmHg (25-40); VBG SO2 90 % (50-70); VBG TCO2 < 5 mmol/L (23-33); VBG pCO2 11.1 mmHg (41-51); VBG pH 6.77 (7.32-7.42)
[2023-06-07 17:18] LABS: Allen Test Positive; Base Excess < -30 mmol/L (-2 to +2); Bicarbonate 1.7 mmol/L (22-26); Blood Gas Specimen Type ART; FI02 21; O2 Delivery Device Room Air; PO2 158 mmHG (75-100); SITE R Radial; SO2 98 % (95-99); Total Carbon Dioxide < 5 mmol/L; pCO2 7.6 mmHg (35-45); pH 6.96 (7.35-7.45)
[2023-06-07] MEDS: Sodium Bicarbonate 8.4% 50 ML Syringe 50 MEQ IV ×4 (17:25→19:38)
[2023-06-07 17:31] LABS: VBG Bicarbonate 2 mmol/L (22-26)
[2023-06-07 18:18] LABS: Glucose 739 mg/dL (74-106)
[2023-06-07 18:19] LABS: Osmolality, Serum 353 mOsm/KG (275-295)
[2023-06-07 18:45] LABS: Bedside Glucose > 500 mg/dL (74-106)
[2023-06-07] MEDS: 0.9% Normal Saline 1,000 ML 250 ML IV (19:42)
[2023-06-07] MEDS: 0.9% Saline Lock 10 ML Syringe IV (20:01)
[2023-06-07 20:35] LABS: Anion Gap 31 (5-15); BUN 20 mg/dL (7-18); BUN/Creat Ratio 17.9 RATIO (10-20); Calcium,Total 8.8 mg/dL (8.5-10.1); Chloride 104 mmol/L (98-107); Creatinine, Serum 1.12 mg/dL (0.70-1.30); EST Glomerular Filtration Rate 87 mL/min (>60); Est Glom Filt Rate - Afr Amer 105 mL/min (>60); Estimated Creatinine Clearance 113.55 ml/min; Glucose 435 mg/dL (74-106); Potassium 4.3 mmol/L (3.5-5.1); Sodium Level 143 mmol/L (136-145)
--- NOTE | 2023-06-07 22:17 | CPS ---
Critical ABG values Dr. Rony hernandez.
[2023-06-07 22:45] LABS: Bedside Glucose 371 mg/dL (74-106)
[2023-06-07 22:45] LABS: Bedside Glucose 330 mg/dL (74-106)
[2023-06-07 22:45] LABS: Bedside Glucose 256 mg/dL (74-106)
[2023-06-07 22:45] LABS: Bedside Glucose 458 mg/dL (74-106)
[2023-06-07 22:47] LABS: Allen Test Positive; Base Excess -23 mmol/L (-2 to +2); Bicarbonate 4.7 mmol/L (22-26); Blood Gas Specimen Type ART; PO2 122 mmHG (75-100); SITE R Radial; SO2 98 % (95-99); Total Carbon Dioxide 5 mmol/L
[2023-06-08] VITALS (19 sets, daily range): BP systolic 93–124; BP diastolic 49–72; PULSE 103–132; RESP 13–22; TEMP 36.4–37; O2SAT 96–100; BMI 23.2
--- NOTE | 2023-06-08 00:21 | CPS ---
Critical ABG values, Dr. anne aware
[2023-06-08 00:24] LABS: Bedside Glucose 262 mg/dL (74-106)
[2023-06-08 00:37] LABS: Anion Gap 22 (5-15); BUN 16 mg/dL (7-18); BUN/Creat Ratio 15.4 RATIO (10-20); Calcium,Total 9.2 mg/dL (8.5-10.1); Chloride 114 mmol/L (98-107); Creatinine, Serum 1.04 mg/dL (0.70-1.30); EST Glomerular Filtration Rate 95 mL/min (>60); Est Glom Filt Rate - Afr Amer 114 mL/min (>60); Estimated Creatinine Clearance 122.29 ml/min; Glucose 267 mg/dL (74-106); Potassium 4.2 mmol/L (3.5-5.1); Sodium Level 144 mmol/L (136-145)
[2023-06-08 00:45] LABS: Magnesium 1.9 mg/dL (1.6-2.6)
[2023-06-08] MEDS: Dext 5%-0.45% NS 1,000 ML 250 ML IV ×3 (00:48→09:16)
[2023-06-08] MEDS: 0.9% Saline Lock 10 ML Syringe IV ×2 (00:54→04:50)
[2023-06-08 00:59] LABS: Allen Test POS; SITE R RADIAL
[2023-06-08 01:01] LABS: Base Excess -28 mmol/L (-2 to +2); Bicarbonate 3.6 mmol/L (22-26); PO2 48 mmHG (75-100); pCO2 15.3 mmHg (35-45); pH 6.98 (7.35-7.45)
[2023-06-08 01:02] LABS: Blood Gas Specimen Type VEN; SO2 63 % (95-99); Total Carbon Dioxide < 5 mmol/L
[2023-06-08] MEDS: Ondansetron 4 MG/2 ML Vial IV (02:36)
[2023-06-08 03:57] LABS: Bedside Glucose 236 mg/dL (74-106)
[2023-06-08 03:57] LABS: Bedside Glucose 239 mg/dL (74-106)
[2023-06-08 03:57] LABS: Bedside Glucose 254 mg/dL (74-106)
[2023-06-08 03:57] LABS: Bedside Glucose 237 mg/dL (74-106)
[2023-06-08 04:13] LABS: Absolute Lymphocyte Count 0.96 X10^3/uL (0.83-4.51); Absolute Neutrophil Count 8.7 X10^3/uL (2.0-7.7); Basophil# 0.01 X10^3/uL; Basophil% 0.1 % (0-1); Eosinophil# 0.01 X10^3/uL; Eosinophils% 0.1 % (0-5); Hematocrit 29.7 % (40-54); Hemoglobin 9.8 g/dL (13.0-16.5); Lymphocyte # 0.96 X10^3/ul (0.83-4.51); Lymphocyte % 9.1 % (19-41); Mean Corpuscular Volume 69.6 fL (80-94); Monocyte# 0.86 X10^3/uL; Monocyte% 8.1 % (0-10); NRBC Flagged by Analyzer 0 % (0-5); Neutrophil % 82.2 % (47-70); Platelet Count 324 K/mm3 (150-450); RBC Distribution Width CV 15.5 % (11.6-14.6); RBC Distribution Width SD 38.3 fl (35.1-43.9); Red Blood Count 4.27 M/mm3 (4.6-6.2); White Blood Count 10.6 K/mm3 (4.4-11.0)
[2023-06-08 04:30] LABS: Anion Gap 14 (5-15); BUN 14 mg/dL (7-18); BUN/Creat Ratio 11.9 RATIO (10-20); Calcium,Total 8.9 mg/dL (8.5-10.1); Chloride 118 mmol/L (98-107); Creatinine, Serum 1.18 mg/dL (0.70-1.30); EST Glomerular Filtration Rate 82 mL/min (>60); Est Glom Filt Rate - Afr Amer 99 mL/min (>60); Estimated Creatinine Clearance 107.78 ml/min; Glucose 256 mg/dL (74-106); Potassium 3.7 mmol/L (3.5-5.1); Sodium Level 146 mmol/L (136-145)
[2023-06-08 07:55] LABS: Bedside Glucose 237 mg/dL (74-106)
[2023-06-08 07:55] LABS: Bedside Glucose 229 mg/dL (74-106)
[2023-06-08 07:55] LABS: Bedside Glucose 193 mg/dL (74-106)
[2023-06-08 07:55] LABS: Bedside Glucose 204 mg/dL (74-106)
--- NOTE | 2023-06-08 08:15 | PN.HOSP_ITS ---
Reason for Visit Reason for Visit: Diagnoses Type 1 diabetes mellitus with ketoacidosis without coma (06/07/23) Type 1 diabetes mellitus with hyperglycemia (06/07/23) Subjective Subjective Follow-up for DKA Objective Data Objective Data Vital Signs: Vital Signs Temp Pulse Resp BP Pulse Ox O2 Del Method 98.5 F 121 H 17 116/62 100 Room Air 06/08/23 04:00 06/08/23 07:00 06/08/23 07:00 06/08/23 07:00 06/08/23 07:00 06/08/23 07:00 Oxygen Delivery Method Room Air Weight: 175 lb 4.28 oz Body Mass Index (BMI) 23.2 Intake & Output: Intake and Output for Last 24 Hours 06/06/23 06/07/23 06/08/23 23:59 23:59 23:59 Intake Total 3442.95 / 3442.95 2029.96 / 2029.96 Output Total 3900 / 3900 600 / 600 Balance -457.05 / -457.05 1429.96 / 1429.96 Lab / Micro Data 06/08/23 04:03 06/08/23 04:03 Labs: Laboratory Results - last 24 hr 06/07/23 14:25: WBC 18.2 H, RBC 5.18, Hgb 12.0 L, Hct 39.1 L, MCV 75.5 L, MCH 23.2 L, MCHC 30.7 L, RDW Std Deviation 40.7, RDW Coeff of Rabia 15.0 H, Plt Count , MPV 10.8, Immature Gran % (Auto) 0.700, Neut % (Auto) 76.5 H, Lymph % (Auto) 16.8 L, Real % (Auto) 4.7, Eos % (Auto) 0.3, Baso % (Auto) 1.0, Absolute Neuts (auto) 13.9 H, Absolute Lymphs (auto) 3.05, Nucleated RBC % 0, Platelet Estimate SLT INC, Sodium 126 L, Potassium 5.5 H, Chloride 91 L, Carbon Dioxide 7.0 L*, Anion Gap 28 H, BUN 19 H, Creatinine 1.52 H, Estim Creat Clear Calc 86.15, Est GFR (MDRD) Af Amer 74, Est GFR (MDRD) Non-Af 61, BUN/Creatinine Ratio 12.5, Glucose 784 H*, Calcium 9.9, Phosphorus 8.0 H, Magnesium 2.4, Acetone Level MODERATE H 06/07/23 14:53: POC Glucose > 500 H* 06/07/23 15:02: Urine Color Yellow, Urine Clarity Sl. Cloudy, Urine pH 5.0, Ur Specific [place] 1.020, Urine Protein 30 H, Urine Glucose (UA) 1000 H, Urine Ketones 150 A*, Urine Occult Blood 10 H, Urine Nitrite Negative, Urine Bilirubin Negative, Urine Urobilinogen Normal, Ur Leukocyte Esterase Negative, Urine RBC 0 SEEN, Urine WBC 0-5 SEEN, Ur Squamous Epith Cells 0 SEEN, Urine Bacteria 0 SEEN, Urine Mucus 0 SEEN 06/07/23 16:40: Sodium 130 L, Potassium 5.6 H, Chloride 93 L, Carbon Dioxide 3.0 L*, Anion Gap 34 H, BUN 21 H, Creatinine 1.39 H, Estim Creat Clear Calc 91.49, Est GFR (MDRD) Af Amer 82, Est GFR (MDRD) Non-Af 68, BUN/Creatinine Ratio 15.1, Glucose 859 H*, Serum Osmolality 353 H, Calcium 9.5 06/07/23 17:28: POC Glucose > 500 H* 06/07/23 17:30: Glucose 739 H* 06/07/23 19:25: POC Glucose 458 H* 06/07/23 19:40: Sodium 143, Potassium 4.3, Chloride 104, Carbon Dioxide 8.0 L*, Anion Gap 31 H, BUN 20 H, Creatinine 1.12, Estim Creat Clear Calc 113.55, Est GFR (MDRD) Af Amer 105, Est GFR (MDRD) Non-Af 87, BUN/Creatinine Ratio 17.9, Glucose 435 H, Calcium 8.8 06/07/23 20:30: POC Glucose 371 H 06/07/23 21:25: POC Glucose 330 H 06/07/23 22:26: POC Glucose 256 H 06/07/23 23:33: POC Glucose 262 H 06/08/23 00:05: Sodium 144, Potassium 4.2, Chloride 114 H, Carbon Dioxide 8.0 L* , Anion Gap 22 H, BUN 16, Creatinine 1.04, Estim Creat Clear Calc 122.29, Est GFR (MDRD) Af Amer 114, Est GFR (MDRD) Non-Af 95, BUN/Creatinine Ratio 15.4, Glucose 267 H, Calcium 9.2, Phosphorus 2.0 L, Magnesium 1.9 06/08/23 00:32: POC Glucose 236 H 06/08/23 01:36: POC Glucose 237 H 06/08/23 02:42: POC Glucose 254 H 06/08/23 03:37: POC Glucose 239 H 06/08/23 04:03: WBC 10.6, RBC 4.27 L, Hgb 9.8 L, Hct 29.7 L, MCV 69.6 L D, MCH 23.0 L, MCHC 33.0 D, RDW Std Deviation 38.3, RDW Coeff of Rabia 15.5 H, Plt Count 324, MPV 9.0, Immature Gran % (Auto) 0.400, Neut % (Auto) 82.2 H, Lymph % (Auto) 9.1 L, Real % (Auto) 8.1, Eos % (Auto) 0.1, Baso % (Auto) 0.1, Absolute Neuts (auto) 8.7 H, Absolute Lymphs (auto) 0.96, Nucleated RBC % 0, Sodium 146 H, Potassium 3.7, Chloride 118 H, Carbon Dioxide 14.0 L, Anion Gap 14, BUN 14, Creatinine 1.18, Estim Creat Clear Calc 107.78, Est GFR (MDRD) Af Amer 99, Est GFR (MDRD) Non-Af 82, BUN/Creatinine Ratio 11.9, Glucose 256 H, Calcium 8.9 06/08/23 04:35: POC Glucose 229 H 06/08/23 05:38: POC Glucose 237 H 06/08/23 06:44: POC Glucose 204 H 06/08/23 07:34: POC Glucose 193 H ABG Data ABG results: ABG 06/07/23 06/07/23 06/07/23 15:53 16:38 18:58 Specimen Type MARILYNN ART MARILYNN Sample Site R Radial R RADIAL pH 6.96 L* 6.98 L* Bicarbonate Actual 1.7 L 3.6 L Total CO2 < 5 < 5 Base Excess < -30 L -28 L O2 Saturation 98 63 L O2 % 21 ABG pCO2 7.6 L* 15.3 L* ABG pO2 158 H 48 L Hector Test Positive POS VBG pH 6.77 L* VBG pO2 111 H VBG HCO3 2 L VBG Total CO2 < 5 L VBG O2 Sat (Calc) 90 H VBG Base Excess < -30 L POC Mix VBG pCO2 Pt Tmp 11.1 L* O2 Delivery Device Room Air Crit Call To/Read Back Yes Yes Yes Blood Gas Notified Whom itzelsima palak LYNN MD Blood Gas Notified Time 15:55:43 06/07/23 22:43 Specimen Type ART Sample Site R Radial pH 7.20 L Bicarbonate Actual 4.7 L Total CO2 5 Base Excess -23 L O2 Saturation 98 O2 % ABG pCO2 12.0 L* ABG pO2 122 H Hector Test Positive VBG pH VBG pO2 VBG HCO3 VBG Total CO2 VBG O2 Sat (Calc) VBG Base Excess POC Mix VBG pCO2 Pt Tmp O2 Delivery Device Crit Call To/Read Back Yes Blood Gas Notified Whom Blood Gas Notified Time Rhythm Strip Rhythm Strip: Sinus Tach Rate: 128 Ectopy: None Physical Exam Narrative Patient is feeling very weak. No vomiting. Low appetite. Denies abdominal pain. Patient is still sinus tachycardic. General: awake and alert x3. Patient still fatigue and lethargy. HEENT: Atraumatic, PERRLA, EOMI, Normocephalic Oral: Oral mucosa moist. No Gingival or Mucosal Lesions/ Ulcerations Neck: Supple, No JVD, Negative Carotid Bruits Lungs: Air entry diminished in bilateral lung bases. Deep breathing mainly abdominal pattern. Some mild breathing. Cardiovascular: Sinus tachycardia, Normal S1, Normal S2, No murmurs Abdomen: Bowel Sounds Present, Soft, Non Tender, Non-Distended : No renal angle tenderness. No suprapubic tenderness. Extremities: No edema, Capillary Refill Less than 3 Seconds Skin: Old healed scar over left great toe and healed bruise over left lower leg, glez Musculoskeletal: ROM full and intact. No Tenderness to Palpation of Joints or Extremities Neurological: Cranial nerves II to XII are intact. No acute focal neurodeficit. Psych/Mental Status: Flat affect. Assessment & Plan Assessment/Plan (1) Diabetic keto-acidosis: QUALIFIERS: Diabetes mellitus type: type 1 Diabetes mellitus complication detail: without coma Qualified Code(s): E10.10 - Type 1 diabetes mellitus with ketoacidosis without coma (2) Type 1 diabetes: QUALIFIERS: Diabetes mellitus complication status: with hyperglycemia Qualified Code(s): E10.65 - Type 1 diabetes mellitus with hyperglycemia PLAN: Plan This is a 22-year-old gentleman with history of type I.his blood is being admit alexandra for DKA. 1. Type 1 diabetes mellitus complicated into DKA: Patient is being admitted in ICU. Patient removed his peripheral lines in ED and new IV line is getting inserted. On IV fluid normal saline as per DKA protocol. Patient will need about 2 to 3 L of fluid before starting insulin drip. Patient is severely dehydrated. Bicarb 6 7, anion gap 28. Glucose 784 in BMP. VBG is ordered. Twelve-lead EKG shows sinus tachycardia 05/19: Last evening and overnight patient bicarb was very low and at one time it was 3 therefore 2 A of bicarb was given. After that it went up to 8.0 and 2 bicarbs was given which I think was not necessary rather spontaneously correct bicarb on IV fluid and insulin drip. Patient is still sinus tachycardic, lethargy and I feel patient is DKA therefore will continue insulin drip for some time. Last anion gap 14. After 2 anion gaps are closed, patient will need overlap of insulin drip and subcutaneous insulin bolus. 2. Dehydration and electrolyte abnormality due to DKA and severe high anion gap metabolic acidosis: Patient has hyponatremia 126, hypertonic hypovolemic hyponatremia. IV fluid normal saline ordered. Potassium is 5.5 but will get automatically collected. Serum magnesium normal. Phosphorus 8.0. 06/08: Serum phosphorus is 2.0. Neutra-Phos ordered. 3. Acute metabolic encephalopathy from DKA: Treat underlying disorder. 4. Bilateral great toe healed wound left glez wound: Currently the wound is healed, dry and scarred. Patient was last admitted on May 08, 2023. Patient was treated with IV antibiotics and discharged on cephalexin 5. RADHA: BUN 19, creatinine 1.52, prerenal in etiology. IV fluid normal saline. Monitor kidney function and electrolytes. 6. History of DVT and pulmonary embolism: Patient is on Xarelto and will continue it. 7. Anemia of chronic disease: Hemoglobin is 12.0. Platelet count clumped. 8. DVT prophylaxis on Xarelto. Full code. Charges/Coding Visit Charges Inpatient E&M: 63080 [facility] Hosp L3
[2023-06-08 09:28] LABS: Anion Gap 10 (5-15); BUN 13 mg/dL (7-18); BUN/Creat Ratio 13.2 RATIO (10-20); Calcium,Total 8.4 mg/dL (8.5-10.1); Chloride 118 mmol/L (98-107); Creatinine, Serum 0.98 mg/dL (0.70-1.30); EST Glomerular Filtration Rate 101 mL/min (>60); Est Glom Filt Rate - Afr Amer 122 mL/min (>60); Estimated Creatinine Clearance 129.77 ml/min; Glucose 167 mg/dL (74-106); Potassium 3.2 mmol/L (3.5-5.1); Sodium Level 145 mmol/L (136-145)
[2023-06-08] MEDS: Insulin Glargine-YFGN 100 UNIT/ML Pen 15 UNIT SC (11:11)
[2023-06-08 11:13] LABS: Magnesium 1.7 mg/dL (1.6-2.6); Phosphorus 1.6 mg/dL (2.5-4.9)
[2023-06-08 11:52] LABS: Bedside Glucose 179 mg/dL (74-106)
[2023-06-08 11:52] LABS: Bedside Glucose 161 mg/dL (74-106)
[2023-06-08 11:52] LABS: Bedside Glucose 162 mg/dL (74-106)
[2023-06-08 13:29] LABS: Bedside Glucose 226 mg/dL (74-106)
--- NOTE | 2023-06-08 14:15 | CASEMGMT ---
Addendum entered by Margoth Jeronimo 06/08/23 15:03: Spoke with Wilfredo from [facility], states pt has no showed to appts and for their visits. Pt texted multiple times without responses. [facility] is unable to take pt back for care. Original Note: VERONA FONTANEZ Readmission Note Previous Admission: 05/08/23-05/09/23 Diagnosis:?Bilat LE DM foot wounds DC Disposition: Home with?CCN and Pt Link Current Admission? Current Diagnosis: DKA Per ER summary Patient is a 22-year-old male with history of insulin-dependent diabetes mellitus, medication noncompliance and multiple admissions for DKA presenting for altered mental status and hyperglycemia. VERONA FONTANEZ into pt room, pt reports that he ran out of his CGM sensors therefore had not been taking his sliding scale insulin. Pt states he called the pharmacy but they said it was too early to fill them. Pt did not call his doctor after this information known. Pt states he has sufficient supply of insulin and needles at home. He states he was given a BGM from his doctor that did not go through his insurance but that it does not work. Pt is agreeable to a rx for a BGM to use as back up if CGM is failing or supplies out. Pt states he [facility] not [facility] and when asked the reason he states don't know. Pt states he still has Pt Link ipad but does not use it and needs to give it back. Pt reports [facility] has not come in some time and he is not sure why they stopped coming. He reports he does not recall missing any calls from them. He reports [facility] was helpful. Pt is aware of his [facility] appt on Jun 14, he states his grandma is going to transport him to this. He states he currently does not have any wounds but she still wants him to go. Discussed having C in the home who may be able to meet him on the porch and not in the home as [facility]N did, pt declines. Asked pt if he had any ideas on what may help him at home and he denied. TC to [facility], spoke with April, she states pt is on day 22 of day 28 for the refill for the Freestyle Niru CGM. He does have 3 refills on these yet. She did try to run the rx and it was rejected.TC to [facility], they are able to deliver a BGM to room. Pt is aware he will have a BGM upon leaving. Pt denies further needs. DC Plan: Home with BGM from [facility] pharmacy.
[2023-06-08 14:27] LABS: Bedside Glucose 183 mg/dL (74-106)
[2023-06-08 14:30] LABS: Anion Gap 9 (5-15); BUN 12 mg/dL (7-18); BUN/Creat Ratio 12.4 RATIO (10-20); Calcium,Total 8.3 mg/dL (8.5-10.1); Chloride 115 mmol/L (98-107); Creatinine, Serum 0.97 mg/dL (0.70-1.30); EST Glomerular Filtration Rate 102 mL/min (>60); Est Glom Filt Rate - Afr Amer 124 mL/min (>60); Estimated Creatinine Clearance 131.11 ml/min; Glucose 248 mg/dL (74-106); Potassium 3.4 mmol/L (3.5-5.1); Sodium Level 143 mmol/L (136-145)
[2023-06-08 17:15] LABS: Bedside Glucose 165 mg/dL (74-106)
[2023-06-08 17:16] LABS: Bedside Glucose 255 mg/dL (74-106)
[2023-06-08 17:19] LABS: Bedside Glucose 242 mg/dL (74-106)
[2023-06-08 18:35] LABS: Bedside Glucose 323 mg/dL (74-106)
[2023-06-08] MEDS: Insulin Lispro 100 UNIT/ML INSULN.PEN SC (18:42)
[2023-06-08] MEDS: Insulin Lispro 100 UNIT/ML INSULN.PEN 25 UNIT SC (18:42)
[2023-06-08] MEDS: Rivaroxaban 20 MG Tablet PO (18:46)
--- NOTE | 2023-06-08 21:29 | NURSING ---
PT glucose 42 denies s/s hypoglycemia, having snack. lab notified for stat backup
[2023-06-08 22:02] LABS: Glucose 42 mg/dL (74-106)
--- NOTE | 2023-06-08 22:49 | NURSING ---
glucose 116 denies any s/s
[2023-06-08 22:57] LABS: Bedside Glucose 116 mg/dL (74-106)
[2023-06-08 22:57] LABS: Bedside Glucose 42 mg/dL (74-106)
[2023-06-09 05:19] VITALS: BMI 23.1
[2023-06-09 06:55] VITALS: BP 119/78; PULSE 102; RESP 16; TEMP 37; O2SAT 96
[2023-06-09 07:42] LABS: Anion Gap 7 (5-15); BUN 8 mg/dL (7-18); BUN/Creat Ratio 10.8 RATIO (10-20); Calcium,Total 8.8 mg/dL (8.5-10.1); Chloride 107 mmol/L (98-107); Creatinine, Serum 0.74 mg/dL (0.70-1.30); EST Glomerular Filtration Rate 139 mL/min (>60); Est Glom Filt Rate - Afr Amer 169 mL/min (>60); Estimated Creatinine Clearance 171.86 ml/min; Glucose 313 mg/dL (74-106); Magnesium 1.5 mg/dL (1.6-2.6); Potassium 2.8 mmol/L (3.5-5.1); Sodium Level 136 mmol/L (136-145)
[2023-06-09] MEDS: Insulin Lispro 100 UNIT/ML INSULN.PEN SC ×2 (08:31→12:07)
[2023-06-09] MEDS: Potassium Chloride Oral Soln 20 MEQ/15 ML UDC 40 MEQ PO (08:31)
[2023-06-09] MEDS: Insulin Lispro 100 UNIT/ML INSULN.PEN 20 UNIT SC (08:32)
[2023-06-09] MEDS: Insulin Glargine-YFGN 100 UNIT/ML Pen 20 UNIT SC (08:33)
[2023-06-09] MEDS: Pantoprazole Sodium 40 MG Tablet PO (08:34)
--- NOTE | 2023-06-09 10:05 | DCINST_ITS ---
Discharge Instructions Diet Discharge Diet: 1800 Calorie Control Diet Activity Discharge Activity: Return to Normal Activity Weight Bearing Status: Weight bearing as tolerated Dressing / Incision Call your doctor if you observe: Fever of 101 or Higher, Coldness, Increased Pain, Numbness or Tingling, Change in Color, Inability to urinate, Inability to have a bowel movement, Shortness of breath, Dizziness, Fainting spells, Swelling in the ankles, Chest pain, Prolonged hiccupping, Increased palpitations (irregular heartbeat) and Calf discomfort Follow Up Care When: IN 2 WEEKS Test Results: Test results from this visit will be discussed in further detail at your follow- up appointment, if applicable. Discharge Plan Admission Admit Date/Time: 06/07/23 15:31 Primary Reason for Your Visit: DKA with type 1 diabetes mellitus Attending Provider: Tha Uribe Primary Care Provider: Mario Reyes Discharge Orders/Prescriptions Prescriptions: Continued insulin lispro [Humalog KwikPen Insulin] 100 unit/mL insulin pen See Protocol subcut [facility] Protocol: 1. Sliding Scale Insulin Low Dosing Condition: 150-224 mg/dl = 1 unit Condition: 225-299 mg/dl = 2 units Condition: 300-374 mg/dl = 3 units Condition: 375-499 mg/dl = 4 units Condition: Greater than 449 call physician Protocol Text: - Use for Total Daily Dose of Insulin 15-27 units - Thin, elderly, renal patients LOW DOSING ALGORITHM acetaminophen [Tylenol] 325 mg Tablet 325 mg PO Q6H PRN (Reason: Pain) potassium chloride 20 mEq/15 mL liquid 20 meq PO BID Qty: 1200 0RF Hold Instructions: Hold while taking Neutra-Phos. Xarelto 20 mg Tablet 20 mg PO DAILY Qty: 30 1RF (DME) OneTouch Verio test strips Strip See Rx Instructions .ROUTE .MEDSUPPLY Rx Instructions: 4x/day (DME) pen needle, diabetic [BD Ultra-Fine Lorin Pen Needle] 32 gauge x /32 needle See Rx Instructions .ROUTE .MEDSUPPLY Rx Instructions: As directed (DME) FreeStyle Niru 14 Day Sensor Kit See Rx Instructions .ROUTE .MEDSUPPLY Rx Instructions: As directed omeprazole 20 mg Tablet,Delayed Release (Dr/Ec) 40 mg PO DAILY 30 Days Qty: 30 2RF Changed insulin lispro 100 unit/mL insulin pen 20 unit subcut TIDAC Qty: 15 2RF Rx Instructions: Hold if glucose less than 130 mg/dl insulin glargine [Lantus Solostar U-100 Insulin] 100 unit/mL (3 mL) insulin pen 20 unit SUBCUT BID Qty: 15 3RF Rx Instructions: Hold if glucose less than 130 mg/dl Discontinued cephalexin 500 mg capsule 500 mg PO TID 10 Days Qty: 30 0RF Referrals / Follow Up: Lauro Galindo MD [Med Staff - Courtesy Staff] - Within 1 Month Mario Reyes MD [Primary Care Provider] - Within 1 Week Disposition Disposition (needs filled in before D/C Order can be placed): Home, Self Care
[2023-06-09 11:46] LABS: Bedside Glucose 176 mg/dL (74-106)
--- NOTE | 2023-06-09 13:54 | PCM.DC.SUM ---
Providers Date of Admission: 06/07/23 Date of Discharge: 06/09/23 Primary Care Physician: Dr. Mario Reyes MD Reason For Visit: DKA Diagnosis Discharge Diagnosis (1) Diabetic keto-acidosis: Status: Resolved Code(s): E11.10 - Type 2 diabetes mellitus with ketoacidosis without coma Qualifiers: Diabetes mellitus complication detail: without coma Diabetes mellitus type: type 1 Qualified Code(s): E10.10 - Type 1 diabetes mellitus with ketoacidosis without coma (2) Type 1 diabetes: Status: Acute Code(s): E10.9 - Type 1 diabetes mellitus without complications Qualifiers: Diabetes mellitus complication status: with hyperglycemia Qualified Code(s): E10.65 - Type 1 diabetes mellitus with hyperglycemia Plan This is a 22-year-old gentleman with history of type I.his blood is being admitted for DKA. 1. Type 1 diabetes mellitus complicated into DKA: Patient is being admitted in ICU. Patient removed his peripheral lines in ED and new IV line is getting inserted. On IV fluid normal saline as per DKA protocol. Patient will need about 2 to 3 L of fluid before starting insulin drip. Patient is severely dehydrated. Bicarb 6 7, anion gap 28. Glucose 784 in BMP. VBG is ordered. Twelve-lead EKG shows sinus tachycardia 06/08: Last evening and overnight patient bicarb was very low and at one time it was 3 therefore 2 A of bicarb was given. After that it went up to 8.0 and 2 bicarbs was given which I think was not necessary rather spontaneously correct bicarb on IV fluid and insulin drip. Patient is still sinus tachycardic, lethargy and I feel patient is DKA therefore will continue insulin drip for some time. Last anion gap 14. After 2 anion gaps are closed, patient will need overlap of insulin drip and subcutaneous insulin bolus. 06/09: Patient was transferred to regular floor after DKA is resolved and patient off insulin drip. Patient glucose continue to be low 42 last night. Currently 170. Accu-Cheks before meals and at bedtime and holding scheduled insulin if glucose less than 130 mg/dL. Prescriptions given for glargine and NovoLog insulin. Follow-up with Dr. Galindo in 1 month. Prescription for glucometer given. Patient sensor and glucometer was not working therefore most likely patient may have to DKA. 2. Dehydration and electrolyte abnormality due to DKA and severe high anion gap metabolic acidosis: Patient has hyponatremia 126, hypertonic hypovolemic hyponatremia. IV fluid normal saline ordered. Potassium is 5.5 but will get automatically collected. Serum magnesium normal. Phosphorus 8.0. 06/08: Serum phosphorus is 2.0. Neutra-Phos ordered. 06/09: Serum phosphorus is still low. Prescription for Neutra-Phos given. 3. Acute metabolic encephalopathy from DKA: Treat underlying disorder. 06/09: Acute encephalopathy is resolved. 4. Bilateral great toe healed wound left glez wound: Currently the wound is healed, dry and scarred. Patient was last admitted on May 08, 2023. Patient was treated with IV antibiotics and discharged on cephalexin 06/09: Great toe ulcer has healed. Patient does not need further antibiotic. 5. RADHA: BUN 19, creatinine 1.52, prerenal in etiology. IV fluid normal saline. Monitor kidney function and electrolytes. 06/09: BUNs/creatinine 8/0.74. RADHA resolved. 6. History of DVT and pulmonary embolism: Patient is on Xarelto and will continue it. 7. Anemia of chronic disease: Hemoglobin is 12.0. Platelet count clumped. 8. DVT prophylaxis on Xarelto. Full code. Discharge medication reconciliation done. Discharge follow-up instructions completed. Discharge process discussed with the patient and all questions were answered to patient's satisfaction. Patient wants to go home. Total time spent, exact 35 minutes on discharge meds reconciliation, examination, coordination of care with nurses and ancillary staff, review of imaging and blood test and discussion with the patient on follow-up instructions. Medications at Discharge Home Medications insulin lispro 100 unit/mL subcutaneous pen (Humalog KwikPen (U-100) Insulin) See Protocol subcut ACHS DM 07/24/22 acetaminophen 325 mg tablet (Tylenol) 325 mg PO Q6H PRN Pain 01/10/23 potassium chloride 20 mEq/15 mL oral liquid 20 meq (15 mL) PO BID #1,200 mL 01/23/23 rivaroxaban 20 mg tablet (Xarelto) 20 mg PO DAILY BLOOD THINNER #30 tabs 01/23/23 blood sugar diagnostic (OneTouch Verio test strips) 02/27/23 flash glucose sensor (FreeStyle Niru 14 Day Sensor kit) 02/27/23 pen needle, diabetic 32 gauge x 5/32 (BD Ultra-Fine Lorin Pen Needle) 02/27/23 omeprazole 20 mg tablet,delayed release 40 mg (2 x 20 mg) PO DAILY 30 days #30 tabs 03/02/23 insulin glargine 100 unit/mL (3 mL) subcutaneous pen (Lantus Solostar U-100 Insulin) 20 unit (0.2 mL) subcut BID DIABETES #15 mL 06/09/23 insulin lispro 100 unit/mL subcutaneous pen 20 unit (0.2 mL) subcut TIDAC DIABETES #15 mL 06/09/23 potassium, sodium phosphates 280 mg-160 mg-250 mg oral powder packet 1 packet PO TID 5 days #15 ea 06/09/23 Physical Exam Narrative Patient appetite has come back. Patient feeling normal with no confusion. No abdominal pain. Physical exam General: awake and alert x3. Patient still fatigue and lethargy. HEENT: Atraumatic, PERRLA, EOMI, Normocephalic Oral: Oral mucosa moist. No Gingival or Mucosal Lesions/ Ulcerations Neck: Supple, No JVD, Negative Carotid Bruits Lungs: Air entry diminished in bilateral lung bases. Deep breathing mainly abdominal pattern. Some mild breathing. Cardiovascular: Sinus tachycardia, Normal S1, Normal S2, No murmurs Abdomen: Bowel Sounds Present, Soft, Non Tender, Non-Distended : No renal angle tenderness. No suprapubic tenderness. Extremities: No edema, Capillary Refill Less than 3 Seconds Skin: Old healed scar over left great toe and healed bruise over left lower leg, glez Musculoskeletal: ROM full and intact. No Tenderness to Palpation of Joints or Extremities Neurological: Cranial nerves II to XII are intact. No acute focal neurodeficit. Psych/Mental Status: Flat affect. Weight / BMI Weight Weight: 174 lb 13.225 oz Body Mass Index (BMI) 23.1 ABG / Lab / Microbiology Data 06/08/23 04:03 06/09/23 06:17 Laboratory: Laboratory Results - last 24 hr 06/08/23 08:30: POC Glucose 165 H 06/08/23 14:00: Sodium 143, Potassium 3.4 L, Chloride 115 H, Carbon Dioxide 19.0 L, Anion Gap 9, BUN 12, Creatinine 0.97, Estim Creat Clear Calc 131.11, Est GFR (MDRD) Af Amer 124, Est GFR (MDRD) Non-Af 102, BUN/Creatinine Ratio 12.4, Glucose 248 H, Calcium 8.3 L 06/08/23 14:09: POC Glucose 183 H 06/08/23 15:59: POC Glucose 255 H 06/08/23 17:01: POC Glucose 242 H 06/08/23 18:17: POC Glucose 323 H 06/08/23 21:23: POC Glucose 42 L* 06/08/23 21:40: Glucose 42 L* 06/08/23 22:32: POC Glucose 116 H 06/09/23 06:17: Sodium 136, Potassium 2.8 L, Chloride 107, Carbon Dioxide 22.0, Anion Gap 7, BUN 8, Creatinine 0.74, Estim Creat Clear Calc 171.86, Est GFR (MDRD) Af Amer 169, Est GFR (MDRD) Non-Af 139, BUN/Creatinine Ratio 10.8, Glucose 313 H, Calcium 8.8, Phosphorus 2.0 L, Magnesium 1.5 L 06/09/23 11:27: POC Glucose 176 H D/C Instructions Discharge Diet: 1800 Calorie Control Diet Weight Bearing Status: Weight bearing as tolerated Call your doctor if you observe: Fever of 101 or Higher, Coldness, Increased Pain, Numbness or Tingling, Change in Color, Inability to urinate, Inability to have a bowel movement, Shortness of breath, Dizziness, Fainting spells, Swelling in the ankles, Chest pain, Prolonged hiccupping, Increased palpitations (irregular heartbeat) and Calf discomfort When: IN 2 WEEKS Meaningful Use Info Meaningful Use Diagnoses (Choose all that apply): None applicable Discharge Plan Admission Admit Date/Time: 06/07/23 15:31 Primary Reason for Your Visit: DKA with type 1 diabetes mellitus Attending Provider: Tha Uribe Primary Care Provider: Mario Reyes Discharge Orders/Prescriptions Prescriptions: New potassium, sodium phosphates 280-160-250 mg Powder In Packet 1 packet PO TID 5 Days Qty: 15 0RF Continued insulin lispro [Humalog KwikPen Insulin] 100 unit/mL insulin pen See Protocol subcut ACHS Protocol: 1. Sliding Scale Insulin Low Dosing Condition: 150-224 mg/dl = 1 unit Condition: 225-299 mg/dl = 2 units Condition: 300-374 mg/dl = 3 units Condition: 375-499 mg/dl = 4 units Condition: Greater than 449 call physician Protocol Text: - Use for Total Daily Dose of Insulin 15-27 units - Thin, elderly, renal patients LOW DOSING ALGORITHM acetaminophen [Tylenol] 325 mg Tablet 325 mg PO Q6H PRN (Reason: Pain) potassium chloride 20 mEq/15 mL liquid 20 meq PO BID Qty: 1200 0RF Hold Instructions: Hold while taking Neutra-Phos. Xarelto 20 mg Tablet 20 mg PO DAILY Qty: 30 1RF (DME) OneTouch Verio test strips Strip See Rx Instructions .ROUTE .MEDSUPPLY Rx Instructions: 4x/day (DME) pen needle, diabetic [BD Ultra-Fine Lorin Pen Needle] 32 gauge x 5/32 needle See Rx Instructions .ROUTE .MEDSUPPLY Rx Instructions: As directed (DME) FreeStyle Niru 14 Day Sensor Kit See Rx Instructions .ROUTE .MEDSUPPLY Rx Instructions: As directed omeprazole 20 mg Tablet,Delayed Release (Dr/Ec) 40 mg PO DAILY 30 Days Qty: 30 2RF Changed insulin lispro 100 unit/mL insulin pen 20 unit subcut TIDAC Qty: 15 2RF Rx Instructions: Hold if glucose less than 130 mg/dl insulin glargine [Lantus Solostar U-100 Insulin] 100 unit/mL (3 mL) insulin pen 20 unit SUBCUT BID Qty: 15 3RF Rx Instructions: Hold if glucose less than 130 mg/dl Discontinued cephalexin 500 mg capsule 500 mg PO TID 10 Days Qty: 30 0RF Referrals / Follow Up: Lauro Galindo MD [Med Staff - Courtesy Staff] - Within 1 Month Mario Reyes MD [Primary Care Provider] - Within 1 Week Disposition Disposition (needs filled in before D/C Order can be placed): Home, Self Care Charges/Coding Visit Charges Inpatient E&M: 08422 Disch Hosp >30min
[2023-06-09 14:29] VITALS: BP 111/63; PULSE 111; RESP 18; TEMP 36.9; O2SAT 98
[2023-06-09] MEDS: Na Biphos/Potassium Phosphate PACKET 1 PACKET PO (14:34)
== END 2023-06-09 15:20 | disposition home or self-care (01) | DRG 420 ==
LOC: ED 15:09 → ICU 15:40 → MS3 06-08 17:42
PROVIDERS: Family Medicine; Admitting Provider Internal Medicine; Emergency Provider Emergency Medicine; PCP Internal Medicine; Visit Provider Internal Medicine
DX: E10.10 Type 1 diabetes mellitus with ketoacidosis without coma (principal); G93.41 Metabolic encephalopathy; N17.9 Acute kidney failure, unspecified; D63.8 Anemia in other chronic diseases classified elsewhere; E86.0 Dehydration; Z79.4 Long term (current) use of insulin; E87.1 Hypo-osmolality and hyponatremia; T38.3X6A Underdosing of insulin and oral hypoglycemic [antidiabetic] drugs, initial encounter; Z91.148 Patient's other noncompliance with medication regimen for other reason; Z79.01 Long term (current) use of anticoagulants; Z86.711 Personal history of pulmonary embolism; Z86.718 Personal history of other venous thrombosis and embolism
CPT/HCPCS: 36415; 36569; 36600; 80048; 81001; 82009; 82803; 82947; 82962; 83735; 83930; 84100; 85025; 93005; 99285; J7030; J7050; A4216; J2405; J7799

== ENCOUNTER 2023-08-15 14:05 | Inpatient (IN) | payer MEDICAID, SELFPAY ==
[2023-08-15] VITALS (7 sets, daily range): BP systolic 98–125; BP diastolic 60–87; PULSE 103–162; RESP 14–28; TEMP 35.7–36.8; O2SAT 0–99; BMI 33.5; BMI 27.1
--- NOTE | 2023-08-15 14:32 | EKG12_ITS ---
Test Reason : TACHY Blood Pressure : / mmHG Vent. Rate : 132 BPM Atrial Rate : 132 BPM P-R Int : 122 ms QRS Dur : 092 ms QT Int : 328 ms P-R-T Axes : 039 066 014 degrees QTc Int : 485 ms Sinus tachycardia Incomplete right bundle branch block Borderline ECG Confirmed by YANE CASTILLO, ROXANNE ([id number]), editor continuity and script QUE BLANC ([id number]) on 08/21/2023 7:07:22 AM Referred By: Confirmed By:ROXANNE CHE MD
[2023-08-15] MEDS: 0.9% Normal Saline (1000mL) 1,000 ML 1000 ML IV (14:41)
[2023-08-15 14:54] LABS: Absolute Neutrophil Count 3.5 X10^3/uL (2.0-7.7); Basophil# 0.03 X10^3/uL; Basophil% 0.6 % (0-1); Eosinophil# 0.04 X10^3/uL; Eosinophils% 0.7 % (0-5); Hematocrit 34.8 % (40-54); Hemoglobin 10.2 g/dL (13.0-16.5); Lymphocyte % 27.8 % (19-41); Mean Corp Hgb Conc 29.3 g/dL (32-36); Mean Corpuscular Hgb 20.6 pg (27.0-32.0); Mean Corpuscular Volume 70.2 fL (80-94); Mean Platelet Vol. 9.4 fl (6.2-12.0); Monocyte# 0.28 X10^3/uL; Monocyte% 5.2 % (0-10); NRBC Flagged by Analyzer 0 % (0-5); Neutrophil # 3.53 X10^3/uL (2.7-7.7); Neutrophil % 65.5 % (47-70); Platelet Count 283 K/mm3 (150-450); RBC Distribution Width CV 16.3 % (11.6-14.6); RBC Distribution Width SD 40.7 fl (35.1-43.9); Red Blood Count 4.96 M/mm3 (4.6-6.2); White Blood Count 5.4 K/mm3 (4.4-11.0)
--- NOTE | 2023-08-15 14:59 | CT_ITS ---
STUDY: CTA CHEST REASON FOR EXAM: Male, 22 years old. sob -- hx PE, noncompliant w/ meds RADIATION DOSAGE (If Supplied By Facility): CTDIvol = ( 12.48 ) mGy, DLP = ( 414.20 ) mGycm TECHNIQUE: The examination was performed with the intravenous administration of IV 100mL Isovue-300. Post-processing of the angiographic images was performed, with multiplanar reformation and 3D reconstruction. Individualized dose optimization techniques were used for this CT. COMPARISON: Comparison is made with prior study dated July 26, 2022. FINDINGS: There is evidence of a saddle embolus involving the main pulmonary artery as well as the proximal portions of both the right and left pulmonary arteries. Multiple filling defects seen in branches of the right and left intermediate stem pulmonary artery as well as branches of the upper and lower lobe pulmonary arteries. Normal thoracic aorta and visualized great vessels. There is no demonstrated aortic dissection. Normal heart and pericardium. Normal mediastinum. Normal hilar regions. Normal visualized trachea and bronchi. The lungs are well expanded. Normal pulmonary parenchyma. Normal pleura. Normal chest wall structures. Normal osseous structures. Normal visualized upper abdomen. CT/CTA Chest W/WO Contrast IMPRESSION: Extensive bilateral pulmonary emboli including saddle embolus. N.B. : The above Results were Read Back by Willy Callahan MD to Ross Adair DO, and understanding confirmed on 08/15/2023 15:46:30 (ET). Electronically Signed: Willy Callahan MD at 15:48 EDT ,
--- NOTE | 2023-08-15 15:12 | EX.ED.DYSGE1 ---
HPI History of Present Illness Chief Complaint: Dizziness Informant: patient and family Narrative Narrative: Presents here with grandmother reporting dyspnea with exertion with lightheaded symptoms since yesterday. No syncopal episodes. No chest pains. No recent vomiting diarrhea. No urinary symptoms. History of type 1 diabetes with history of DKA however states sugars have been well controlled in the 150s recently. However. Did state he drank a large [employer] before he came. Patient does have history of pulmonary embolism little over a year ago he is currently off his anticoagulants. There is questions of compliance however he states his physician told him that he could stop it. That was his first blood clot last year. Grandmother thinks he took it for at least 6 months. No recent travel or surgeries. Also reports had pericardial effusion requiring emergent transfer from here last year and pericardial window. Unclear the etiology per grandmother. [facility] Medical History Anxiety AP window (aortopulmonary window) Asthma Depression Diabetes mellitus type 1 DVT (deep venous thrombosis) femur surgery GERD (gastroesophageal reflux disease) History of medication noncompliance Hypokalemia Hypokalemia Kidney disease Lower extremity edema Nausea and vomiting Non-smoker Noncompliance Noncompliance with diabetes treatment Nonhealing surgical wound Psychosocial problem Severe protein-calorie malnutrition Sinus tachycardia seen on cardiac cath lab radiology technologist Type 1 diabetes Ulcer of leg, chronic Wound of left lower extremity Home Medications insulin lispro 100 unit/mL subcutaneous pen (Humalog KwikPen (U-100) Insulin) See Protocol subcut ACHS DM 07/24/22 [History Last Taken Unknown] acetaminophen 325 mg tablet (Tylenol) 325 mg PO Q6H PRN Pain 01/10/23 [History Last Taken 01/09/23] rivaroxaban 20 mg tablet (Xarelto) 20 mg PO DAILY BLOOD THINNER #30 tabs 01/23/23 [Rx Last Taken Unknown] blood sugar diagnostic (OneTouch Verio test strips) 02/27/23 [History Last Taken Unknown] flash glucose sensor (FreeStyle Niru 14 Day Sensor kit) 02/27/23 [History Last Taken Unknown] pen needle, diabetic 32 gauge x 5/32 (BD Ultra-Fine Lorin Pen Needle) 02/27/23 [History Last Taken Unknown] omeprazole 20 mg tablet,delayed release 40 mg (2 x 20 mg) PO DAILY stomach 30 days #30 tabs 03/02/23 [Rx Last Taken Unknown] insulin glargine 100 unit/mL (3 mL) subcutaneous pen (Lantus Solostar U-100 Insulin) 35 unit subcut BID DIABETES 08/15/23 [History Last Taken Unknown] insulin lispro 100 unit/mL subcutaneous pen 25 unit subcut TIDAC DIABETES 08/15/23 [History Last Taken Unknown] potassium chloride 20 mEq tablet,extended release(part/cryst) 40 meq PO DAILY supplement 08/15/23 [History Last Taken Unknown] Allergy/AdvReac Type Severity Reaction Status Date / Time vancomycin Allergy local Verified 05/09/23 09:30 rash/hives to IV site Milk Containing Products AdvReac Diarrhea Verified 05/08/23 20:36 (Dairy) [Milk Containing Products] Family History Father Polysubstance overdose Patient father young secondary to OD. Mother Iron deficiency anemia Other Asthma CVA (cerebral vascular accident) Diabetes Hypertension Thyroid disorder Surgical History H/O right knee surgery History of surgery on extremity Hx of knee surgery Social History housing: other details: Lives with his grandmother, aunt and mother. Smoking Status: Never smoker alcohol intake: current alcohol intake frequency: a few times a month substance use type: does not use ROS ROS ED Constitutional Constitutional ED: Denies chills, fever(s) or sweats Eyes Eyes: Denies change in vision ENT ENT ED: Denies dysphagia or sore throat Cardiovascular Cardiovascular: Denies chest pain, leg edema, palpitations or racing heartbeat Respiratory/Chest Respiratory/Chest: Reports dyspnea on exertion; Denies cough or dyspnea Gastrointestinal Gastrointestinal: Denies abdominal pain, diarrhea, nausea or vomiting Genitourinary Genitourinary ED: Denies dysuria, hematuria or urinary frequency Musculoskeletal Musculoskeletal: Denies back pain, extremity pain or neck pain Integumentary Denies rash or wounds Neurologic Neurologic: Denies headache(s), paresthesias or weakness EXAM Physical Exam Const Vital Signs: 08/15/23 14:06 08/15/23 14:25 08/15/23 14:43 Temperature 96.2 F L Temperature Source Temporal Pulse Rate 162 H 126 H Respiratory Rate 24 H 19 H Respiratory Effort Short of Breath Respiratory Pattern Tachypnea Blood Pressure 98/60 101/70 Blood Pressure Mean 72 80 Pulse Ox 98 92 Oxygen Delivery Method Room Air Room Air Positive well nourished and well developed General Appearance ED: well developed and NAD HEENT Reports moist mucous membranes normocephalic and atraumatic Eyes PERRL, EOMs intact bilaterally and conjunctivae normal General Eye ED: Yes normal appearance of both eyes Neck no lymphadenopathy and supple General: Negative for tenderness Chest Wall Chest: Negative for tenderness Resp normal respiratory effort and normal air movement Effort and Inspection: symmetric chest movement; Negative for respiratory distress Cardio regular rhythm and no murmurs Rate: tachycardic Peripheral Pulses: pulses 2+ throughout GI normal to inspection, nondistended, normoactive bowel sounds and non-tender Palpation: Negative for guarding or rebound tenderness present Back/Spine no CVA tenderness and no thoracic nor lumbar tenderness Extremity normal to inspection General Extremety ED: Negative for edema or tenderness General Extremity: Negative for edema Neuro oriented x3, CN's II-XII intact bilaterally and no sensory deficits noted Sensorium / Orientation: awake and alert Skin no rashes or lesions noted and no wounds MDM MDM MDM Narrative Medical decision making narrative: Interventions / MDM: Differential diagnosis: Pulmonary embolism, cardiac dysrhythmia Diagnosis considered but do not suspect: DKA however negative gap and acetone My EKG interpretation: Sinus rate of 132, no ST or T wave changes QTc 485. Imaging independently reviewed and interpreted by myself: CTA chest: Saddle PE no heart strain also discussion with radiologist. External documents reviewed: N/A Test considered but not ordered:N/A ED course: Patient heart rate 106 during my evaluation after fluids were started. Bedside ultrasound performed by myself no pericardial effusion, however did note mild right ventricle dilatation. Normal ventricular contraction. DKA labs with his history, CT of the chest ordered to rule out PE with his history and symptoms. Heart rate improving with fluids, labs and glucose was 529, gap 8, acetone negative. Additional liter fluid was ordered. CTA discussion radiologist confirms a saddle PE no heart strain. Added troponin and BNP. Heparin drip with bolus ordered. 1600: Heart rate 126 he is not hypoxic no respiratory distress. I discussed with hospitalist Dr. Baxter, will admit to PCU. Re-evaluation: stable Disposition discussed with patient/family/significant other: Patient Case discussed with consulting clinician: N/A This note was generated with [employer]ov[employer] dictation software. It may contain incorrect words, spelling, and punctuation that were not noted in checking the note before signing. Lab Data Attestation: I reviewed the patient's lab results. Labs: Laboratory Results - last 24 hr 08/15/23 08/15/23 14:45 14:55 WBC 5.4 RBC 4.96 Hgb 10.2 L Hct 34.8 L MCV 70.2 L MCH 20.6 L MCHC 29.3 L RDW Std Deviation 40.7 RDW Coeff of Rabia 16.3 H Plt Count 283 MPV 9.4 Immature Gran % (Auto) 0.200 Neut % (Auto) 65.5 Lymph % (Auto) 27.8 Hardeman % (Auto) 5.2 Eos % (Auto) 0.7 Baso % (Auto) 0.6 Absolute Neuts (auto) 3.5 Absolute Lymphs (auto) 1.50 Nucleated RBC % 0 PT 13.9 INR 1.1 APTT 26.0 Sodium 134 L Potassium 3.9 Chloride 103 Carbon Dioxide 23.0 Anion Gap 8 BUN 22 H Creatinine 1.14 Estim Creat Clear Calc 111.56 Est GFR (MDRD) Af Amer 103 Est GFR (MDRD) Non-Af 85 BUN/Creatinine Ratio 19.3 Glucose 529 H* Hemoglobin A1c 11.5 H Calcium 8.7 Phosphorus 4.5 Magnesium 1.8 Iron 19 L TIBC 555 H Iron Saturation 3.4 L Ferritin 10 L Total Bilirubin 0.70 Direct Bilirubin 0.20 AST 14 L ALT 21 Alkaline Phosphatase 116 Troponin I High Sens 16 B-Natriuretic Peptide 227.8 H Total Protein 7.2 Albumin 3.5 Globulin 3.7 Vitamin B12 285 Folate 16.40 Acetone Level NEGATIVE Radiography Diagnostic Testing: Clinical Impression(s) from Imaging Studies Chest CTA 08/15/23 14:59 IMPRESSION: Extensive bilateral pulmonary emboli including saddle embolus. N.B. : The above Results were Read Back by Willy Callahan MD to Ross Adair DO, and understanding confirmed on 08/15/2023 15:46:30 (ET). Electronically Signed: Willy Callahan MD at 15:48 EDT , ADDENDUM: 08/15/23 1555 IMPRESSION: Extensive bilateral pulmonary emboli including saddle embolus. N.B. : The above Results were Read Back by Willy Callahan MD to Ross Adair DO, and understanding confirmed on 08/15/2023 15:46:30 (ET). Electronically Signed: Willy Callahan MD at 15:48 EDT , Critical Care Time Critical Care Time: Yes Critical care time (excluding procedures): 30-74 minutes, Discussing w/Patient &/or Family/Bioassayist, Discussing w/Consultants, Arranging Admission or Transfer, Performing Direct Patient Care at Bedside and - (40 minutes) Discharge Plan Dx/Rx/DC Orders Clinical Impression: Exertional dyspnea, Sinus tachycardia, Near syncope, Pulmonary embolism, Hyperglycemia Disposition Disposition: Acute Care Hospital [facility] Discharge Date/Time: 08/15/23 16:57
[2023-08-15 15:14] LABS: Anion Gap 8 (5-15); BUN 22 mg/dL (7-18); BUN/Creat Ratio 19.3 RATIO (10-20); Calcium,Total 8.7 mg/dL (8.5-10.1); Chloride 103 mmol/L (98-107); Creatinine, Serum 1.14 mg/dL (0.70-1.30); EST Glomerular Filtration Rate 85 mL/min (>60); Est Glom Filt Rate - Afr Amer 103 mL/min (>60); Estimated Creatinine Clearance 111.56 ml/min; Glucose 529 mg/dL (74-106); Potassium 3.9 mmol/L (3.5-5.1); Sodium Level 134 mmol/L (136-145)
--- NOTE | 2023-08-15 15:57 | PCM.HP.STD ---
HPI - General General Date of Admission: 08/15/23 Date of Service: 08/15/23 Chief Complaint: Dyspnea on exertion HPI Narrative SHIRA STEPHENSON, is a 22 M with history of DVT/PE in 07/2022, pericardial infection with effusion s/p pericardial window in 07/2022, poorly controlled type 1 diabetes with frequent admissions for DKA and chronic toe wounds who presented to [facility] ED on 08/15/2023 with dyspnea with exertion. Patient seen at bedside in the ED, grandmother present. Patient sitting comfortably in bedside chair, conversing normally, no acute distress. Patient does have mildly increased work of breathing noted on room air. Patient states that he had worsening dyspnea with exertion and lightheadedness starting yesterday. No episodes of syncope. No chest pain, nausea/vomiting, diarrhea, urinary symptoms accompanying this. Patient states he was diagnosed with a DVT and PE around this time last year, took Xarelto for 6 months and has now been off any blood thinners for about 5 to 6 months. States he has been taking his insulin at home as prescribed, and blood sugars have been well controlled in the 150s recently. Does note that he drank a high sugar drink just prior to coming into the ED. Patient currently denies any shortness of breath at rest. Denies any chest pain, abdominal pain, lightheadedness/dizziness, nausea/vomiting, leg pain or swelling, fevers or chills. No other acute concerns. ED notable for sinus tachycardia to 160, respiratory rate mid 20s, oxygen saturations in mid 90s on room air. Lab notable for WBC count 5, hemoglobin 10.2, platelets 283, sodium 134, potassium 3.9, chloride 103, bicarb 23, BUN 22, creatinine 1.14, glucose 529, BNP 227, troponin 16 with repeat pending. EKG showed sinus tachycardia with no ST changes. CTA chest showed extensive bilateral pulm emboli including saddle embolus, normal heart and pericardium, low concern for right heart strain. [facility] Medical History Anxiety AP window (aortopulmonary window) Asthma Depression Diabetes mellitus type 1 DVT (deep venous thrombosis) femur surgery GERD (gastroesophageal reflux disease) History of medication noncompliance Hypokalemia Hypokalemia Kidney disease Lower extremity edema Nausea and vomiting Non-smoker Noncompliance Noncompliance with diabetes treatment Nonhealing surgical wound Psychosocial problem Severe protein-calorie malnutrition Sinus tachycardia seen on ekg monitor tech Type 1 diabetes Ulcer of leg, chronic Wound of left lower extremity Home Medications insulin lispro 100 unit/mL subcutaneous pen (Humalog KwikPen (U-100) Insulin) See Protocol subcut ACHS DM 07/24/22 [History Last Taken Unknown] acetaminophen 325 mg tablet (Tylenol) 325 mg PO Q6H PRN Pain 01/10/23 [History Last Taken 01/09/23] rivaroxaban 20 mg tablet (Xarelto) 20 mg PO DAILY BLOOD THINNER #30 tabs 01/23/23 [Rx Last Taken Unknown] blood sugar diagnostic (ADOP Verio test strips) 02/27/23 [History Last Taken Unknown] flash glucose sensor (FreeStyle Niru 14 Day Sensor kit) 02/27/23 [History Last Taken Unknown] pen needle, diabetic 32 gauge x 5/32 (BD Ultra-Fine Lorin Pen Needle) 02/27/23 [History Last Taken Unknown] omeprazole 20 mg tablet,delayed release 40 mg (2 x 20 mg) PO DAILY stomach 30 days #30 tabs 03/02/23 [Rx Last Taken Unknown] insulin glargine 100 unit/mL (3 mL) subcutaneous pen (Lantus Solostar U-100 Insulin) 35 unit subcut BID DIABETES 08/15/23 [History Last Taken Unknown] insulin lispro 100 unit/mL subcutaneous pen 25 unit subcut TIDAC DIABETES 08/15/23 [History Last Taken Unknown] potassium chloride 20 mEq tablet,extended release(part/cryst) 40 meq PO DAILY supplement 08/15/23 [History Last Taken Unknown] Allergy/AdvReac Type Severity Reaction Status Date / Time vancomycin Allergy local Verified 05/09/23 09:30 rash/hives to IV site Milk Containing Products AdvReac Diarrhea Verified 05/08/23 20:36 (Dairy) [Milk Containing Products] Family History Father Polysubstance overdose Patient father young secondary to OD. Mother Iron deficiency anemia Other Asthma CVA (cerebral vascular accident) Diabetes Hypertension Thyroid disorder Surgical History H/O right knee surgery History of surgery on extremity Hx of knee surgery Social History housing: other details: Lives with his grandmother, aunt and mother. Smoking Status: Never smoker alcohol intake: current alcohol intake frequency: a few times a month substance use type: does not use ROS Constitutional Constitutional: Denies change in weight, chills, fatigue, fever(s) or weakness Eyes Eyes: Denies change in vision Cardiovascular Cardiovascular: Reports dyspnea on exertion, lightheadedness and rapid heart rate; Denies chest pain, edema, orthopnea, palpitations or syncope Respiratory/Chest Respiratory/Chest: Denies cough, shortness of breath at rest or wheezing Gastrointestinal Gastrointestinal: Denies abdominal pain, nausea or vomiting Genitourinary Genitourinary: Denies dysuria Musculoskeletal Musculoskeletal: Denies back pain Neurologic Neurologic: Denies confusion, dizziness, focal weakness, headache(s) or numbness Endocrine Endocrinology: Reports polydipsia; Denies polyuria Vital Signs Vital Signs Vital Signs: 08/15/23 14:06 08/15/23 14:25 08/15/23 14:43 Temperature 96.2 F L Temperature Source Temporal Pulse Rate 162 H 126 H Respiratory Rate 24 H 19 H Respiratory Effort Short of Breath Respiratory Pattern Tachypnea Blood Pressure 98/60 101/70 Blood Pressure Mean 72 80 Pulse Ox 98 92 Oxygen Delivery Method Room Air Room Air Weight Weight: 112.2 kg Body Mass Index (BMI) 33.5 Physical Exam Narrative Young adult male, obese, sitting comfortably in bedside chair, conversing normally, no acute distress. Mildly increased work of breathing noted on room air. Const alert, oriented x3, no apparent distress, average body habitus, healthy appearing and well nourished General Appearance: cooperative, comfortable, well kempt and well developed HEENT normocephalic, head/scalp atraumatic, hearing grossly normal bilaterally, nasal mucous membranes and turbinates normal and moist oral mucous membranes Eyes PERRL, EOMs intact bilaterally and conjunctivae normal Neck full ROM, no lymphadenopathy and supple Lymph Lymphatic: no lymphadenopathy noted Chest inspection of chest normal Resp normal air movement and clear to auscultation bilaterally Cardio regular rhythm, no murmurs and peripheral pulses 2+ throughout Cardio Narrative: Sinus tachycardia. GI normal to inspection, nondistended, normoactive bowel sounds, soft to palpation, non-tender and non-distended Back/Spine normal ROM Extremity normal to inspection, full ROM and no pedal edema Extremity Narrative: No lower extremity edema or tenderness to palpation noted. Skin no rashes or lesions noted Psych mental status grossly normal Results Lab / Micro Data 08/15/23 14:45 08/15/23 14:45 Labs: Laboratory Results - last 24 hr 08/15/23 14:45: WBC 5.4, RBC 4.96, Hgb 10.2 L, Hct 34.8 L, MCV 70.2 L, MCH 20.6 L, MCHC 29.3 L, RDW Std Deviation 40.7, RDW Coeff of Rabia 16.3 H, Plt Count 283, MPV 9.4, Immature Gran % (Auto) 0.200, Neut % (Auto) 65.5, Lymph % (Auto) 27.8, [place] % (Auto) 5.2, Eos % (Auto) 0.7, Baso % (Auto) 0.6, Absolute Neuts (auto) 3.5, Absolute Lymphs (auto) 1.50, Nucleated RBC % 0, Sodium 134 L, Potassium 3.9, Chloride 103, Carbon Dioxide 23.0, Anion Gap 8, BUN 22 H, Creatinine 1.14, Estim Creat Clear Calc 111.56, Est GFR (MDRD) Af Amer 103, Est GFR (MDRD) Non-Af 85, BUN/Creatinine Ratio 19.3, Glucose 529 H*, Calcium 8.7, Acetone Level NEGATIVE Radiology Impression Chest CTA 08/15/23 14:59 IMPRESSION: Extensive bilateral pulmonary emboli including saddle embolus. N.B. : The above Results were Read Back by Willy Callahan MD to Rsos Adair DO, and understanding confirmed on 08/15/2023 15:46:30 (ET). Electronically Signed: Willy Callahan MD at 15:48 EDT , ADDENDUM: 08/15/23 0112 IMPRESSION: Extensive bilateral pulmonary emboli including saddle embolus. N.B. : The above Results were Read Back by Willy Callahan MD to Ross Adair DO, and understanding confirmed on 08/15/2023 15:46:30 (ET). Electronically Signed: Willy Callahan MD at 15:48 EDT , Assessment & Plan Assessment/Plan (1) Recurrent pulmonary embolism: PLAN: Plan Patient is a 22-year-old male with history of DVT/PE in 07/2022, pericardial infection with effusion s/p pericardial window in 07/2022, poorly controlled type 1 diabetes with frequent admissions for DKA and chronic toe wounds who presented to [facility] ED on 08/15/2023 with dyspnea with exertion. 1. Saddle pulmonary embolism, low risk First DVT/PE was in 07/2022, unclear if this was considered provoked or unprovoked, was on Xarelto daily for about 6 months and has now been off for the last 5 to 6 months. Unclear if patient had hypercoagulable work-up previously. CTA chest showed extensive bilateral pulm emboli including saddle embolus, normal heart and pericardium, low concern for right heart strain. Sinus tachycardia to 140s on admit, oxygen saturations in mid 90s on room air. Given 2 L normal saline in ED with improvement in tachycardia, remains stable on room air with minimal increased work of breathing. Heparin drip started in the ED. ? Admit under inpatient status to PCU. Cardiology consulted. Continue heparin drip. Daily CBC. Monitor telemetry. Echo ordered. Maintenance IV fluids for now as noted below. 2. Poorly controlled type 1 diabetes with hyperglycemia, not in DKA Blood glucose 529 on admit, bicarb 23, no anion gap noted. Previous A1c values have all been in the 10-12 range. Patient reports that his current home insulin regimen is Lantus 35 units twice daily, Humalog 25 units plus sliding scale with meals. Has history of nonadherence to home medications. ? We will give one-time dose of 15 units of Humalog now. Keep patient n.p.o. for now until blood sugar is improved. We will start Lantus 25 units twice daily, Humalog 15 units with meals plus sliding scale for now, adjust as needed. Maintenance IV fluids with LR 75 ml/hr until patient starts p.o. intake. A1c ordered. Nutrition/dietitian consulted. 3. Chronic microcytic anemia Hemoglobin 10.2 on admit, MCV 70.2. Baseline hemoglobin around 9-11. Unclear if anemia has been worked up previously. ? Iron studies with ferritin, vitamin B12, folate and peripheral smear ordered. Daily CBC as noted above. Chronic medical conditions: ? Chronic toe wounds in setting of poorly controlled diabetes: Toe wounds appeared well-healed on exam on admit. ? Obesity: BMI 33 on admit. Nutrition/dietitian consulted as above. DVT prophylaxis: Lovenox CODE STATUS: Full code, verified Expected disposition: Home, 2 to 3 days Total clinical time spent by myself addressing the patient's medical issues, reviewing all the data, and collaborating with patient's care team: 55 minutes. Charges/Coding Visit Charges Inpatient E&M: 54261 Init Hosp L2
[2023-08-15 16:17] LABS: International Normalized Ratio 1.1; Prothrombin Time (Protime)PT. 13.9 SECONDS (11.7-14.9)
--- NOTE | 2023-08-15 16:17 | VDLE_ITS ---
Reason For Study: Saddle PE RIGHT LEFT GSV is normal. GSV is normal. CFV is compressible, spontaneous, phasic, CFV is compressible, spontaneous, phasic, competent and demonstrates normal competent, and demonstrates normal augmentation. augmentation. FV is compressible, spontaneous, phasic, FV is compressible, spontaneous, phasic, competent and demonstrates normal competent and demonstrates normal augmentation. augmentation. POP V is compressible, spontaneous, phasic, Acute deep vein thrombosis is noted in the competent and demonstrates normal POP V. It is dilated and NONCOMPRESSIBLE. augmentation. Acute deep vein thrombosis is noted in the Acute deep vein thrombosis is noted in the T/P Trunk. It is dilated and NONCOMPRESSIBLE. T/P Trunk. It is dilated and NONCOMPRESSIBLE. PTV is compressible. PTV is compressible. LT PerV is compressible. RT PerV is compressible. Procedure This is a venous duplex using B-mode, color flow and spectral Doppler. Exam performed in department. The exam was diagnostic. A preliminary report was called and/or faxed to Kinsey LEY RN. VL/Venous Duplex US - [place] Extrem Interpretation Summary Acute deep vein thrombosis is noted in the left popliteal vein, tibioperoneal t runk vein. Acute deep vein thrombosis is noted in the right tibio-peroneal trunk. Ordering Physician: Anurag Baxter Referring Physician: Mario Reyes M.D. Performed By: John Victor RVT
[2023-08-15 16:30] LABS: BNP,B-Type NATRIURETIC PEPTIDE 227.8 pg/mL (0-100)
[2023-08-15 16:37] LABS: Troponin-I HS 16 pg/mL (3.0-78.0)
[2023-08-15] MEDS: Heparin Injection (Vial) 5,000 UNIT/ML VIAL 4000 UNIT IV (16:39)
[2023-08-15] MEDS: HEPARIN/D5w 25,000 UNITS 25,000 UNITS/250 ML IV.SOLN. 10 UNITS CONT INF (16:41)
[2023-08-15] MEDS: 0.9% Normal Saline (1000mL) 1,000 ML 999 ML IV (16:41)
[2023-08-15 16:51] LABS: Bacteria 0 SEEN /hpf (None Seen); Mucous, Urine 0 SEEN /hpf (<or=2+); Red Blood Cells-Urine 0 SEEN /hpf (0-5); Squamous Epithelial Cells - UA 0 SEEN /hpf (0-5)
[2023-08-15 16:55] LABS: Magnesium 1.8 mg/dL (1.6-2.6); Phosphorus 4.5 mg/dL (2.5-4.9)
--- NOTE | 2023-08-15 17:01 | ECHOD_ITS ---
Reason For Study: EMBOLI, TACHYCARDIA Procedure This was a 2D Doppler, Color Flow transthoracic echocardiogram. Exam performed portable in patient room. Left Ventricle Normal LV size. D shaped septum in systole and diastole. Left ventricular systolic function is normal. The estimated ejection fraction is 65 %. No regional wall motion abnormalities noted. Right Ventricle Moderately dilated right ventricle. Normal systolic function. Atria Normal left atrium. Normal right atrium. Mitral Valve Normal mitral valve. Tricuspid Valve Normal tricuspid valve. Moderate (2+) tricuspid valve insufficiency. Pulmonary artery systolic pressure is 54 mmHg. Moderate pulmonary hypertension. Aortic Valve Trisinus/trileaflet aortic valve. Pulmonic Valve Normal pulmonic valve. Great Vessels Normal aortic root. The pulmonary artery is normal size. Inferior vena cava collapse with respiration. Pericardium/Pleural No pericardial effusion. MMode/2D Measurements & Calculations LVIDd: 4.2 cm IVSd: 1.2 cm Ao root diam: 2.8 cm LVIDs: 2.5 cm LVPWd: 1.1 cm RVDd: 3.9 cm FS: 39.8 % LAV(MOD-bp): 35.4 ml LVAd ap4: 24.7 cm2 SV(MOD-sp4): 41.0 ml LAV(MOD-bp) Indexed: 15.2 ml/m2 LVLd ap4: 7.8 cm LAV(MOD-sp2): 34.3 ml EDV(MOD-sp4): 63.7 ml LAV(MOD-sp4): 35.4 ml EDV(sp4-el): 66.1 ml LVAs ap4: 13.4 cm2 LVLs ap4: 6.7 cm ESV(MOD-sp4): 22.6 ml ESV(sp4-el): 22.8 ml EF(MOD-sp4): 64.4 % EF(sp4-el): 65.6 % SV(sp4-el): 43.4 ml LA A4 area: 14.9 cm2 LA dimension(2D): 3.2 cm RA A4 area: 17.6 cm2 Time Measurements MV dec time: 0.09 sec Doppler Measurements & Calculations MV E max trve: 104.4 cm/sec Lat Peak E' Trev: 14.6 cm/sec Med Peak E' Trev: 9.9 cm/sec MV A max trev: 109.4 cm/sec E/E' lat: 7.1 E/E' med: 10.6 MV E/A: 0.95 Ao V2 max: 129.1 cm/sec LV V1 max: 100.8 cm/sec PA V2 max: 59.9 cm/sec Ao max P.7 mmHg LV V1 max P.1 mmHg TR max trev: 357.1 cm/sec TR max P.0 mmHg ECHO/Echo Complete Interpretation Summary Normal LV size. Left ventricular systolic function is normal. D shaped septum in systole and diastole. Pulmonary artery systolic pressure is 54 mmHg. Moderate pulmonary hypertension. Ordering Physician: Anurag Baxter Referring Physician: JONE BROTHERS Performed By: Laura Zhong RDCS
[2023-08-15 17:18] LABS: Color, Urine Yellow (Yellow); Glucose, Dipstick 250 mg/dl (Normal); Ketone-Dipstick Negative (Negative); Leukocyte Esterase-Dipstick 500 /ul (Negative); Nitrite-Dipstick Negative (Negative); Occult Blood-Urine Negative /ul (Negative); Protein-Dipstick 30 mg/dl (Negative); Specific Gravity, Urine 1.025 (1.002-1.030); Urine Bilirubin Dipstick Negative (Negative); Urine Clarity Cloudy (Clear); Urine Urobilinogen Normal (Normal)
[2023-08-15 17:23] LABS: White Blood Cells 50-100 SEEN /hpf (0-5)
[2023-08-15 17:29] LABS: Yeast-Urine 4+ /hpf (None Seen)
[2023-08-15] MEDS: Lactated Ringers 1,000 ML 75 ML IV (17:47)
[2023-08-15 18:19] LABS: Bedside Glucose 408 mg/dL (74-106)
[2023-08-15] MEDS: Insulin Lispro 100 UNIT/ML INSULN.PEN 15 UNIT SC (18:20)
[2023-08-15] MEDS: Acetaminophen 325 MG Tablet 650 MG PO (22:00)
[2023-08-15 22:19] LABS: Bedside Glucose 180 mg/dL (74-106)
[2023-08-15 22:21] LABS: Partial Thromboplast Time 39.3 Seconds (24.1-36.2)
[2023-08-15] MEDS: Heparin Injection (Vial) 5,000 UNIT/ML VIAL IV (22:40)
[2023-08-15] MEDS: 0.9% Saline Lock 10 ML Syringe IV (22:41)
[2023-08-15 22:48] LABS: Vitamin B12 285 pg/mL (211-911)
[2023-08-15 22:55] LABS: AST(SGOT) 14 U/L (15-37); Alanine Aminotransfer ALT/SGPT 21 U/L (16-61); Albumin, Serum 3.5 g/dL (3.2-5.0); Alkaline Phosphatase 116 U/L (45-117); Ferritin 10 ng/mL (26-388); Globulin 3.7 g/dL (2.2-4.2); Iron 19 ug/dL (65-175); Iron Binding Capacity,Total 555 ug/dL (250-450); PERCENT IRON SATURATION 3.4 % (15.0-55.0); Protein, Total 7.2 g/dL (6.4-8.2)
[2023-08-15] MEDS: Insulin Lispro 100 UNIT/ML INSULN.PEN SC (23:00)
[2023-08-15] MEDS: Insulin Glargine-YFGN 100 UNIT/ML Pen 25 UNIT SC (23:00)
[2023-08-15 23:08] LABS: Hemoglobin A1c 11.5 % (3.8-5.6)
[2023-08-16 04:12] LABS: Bedside Glucose 82 mg/dL (74-106)
[2023-08-16 04:54] LABS: Hematocrit 32.3 % (40-54); Hemoglobin 9.2 g/dL (13.0-16.5); Mean Corp Hgb Conc 28.5 g/dL (32-36); Mean Corpuscular Hgb 20.4 pg (27.0-32.0); Mean Corpuscular Volume 71.5 fL (80-94); Mean Platelet Vol. 8.9 fl (6.2-12.0); Platelet Count 266 K/mm3 (150-450); RBC Distribution Width CV 16.3 % (11.6-14.6); Red Blood Count 4.52 M/mm3 (4.6-6.2); White Blood Count 5.2 K/mm3 (4.4-11.0)
[2023-08-16 05:08] LABS: Partial Thromboplast Time 48.1 Seconds (24.1-36.2)
[2023-08-16 05:18] LABS: Anion Gap 5 (5-15); BUN 16 mg/dL (7-18); BUN/Creat Ratio 20.9 RATIO (10-20); Calcium,Total 8.3 mg/dL (8.5-10.1); Chloride 113 mmol/L (98-107); Creatinine, Serum 0.77 mg/dL (0.70-1.30); EST Glomerular Filtration Rate 134 mL/min (>60); Est Glom Filt Rate - Afr Amer 163 mL/min (>60); Estimated Creatinine Clearance 170.06 ml/min; Glucose 83 mg/dL (74-106); Potassium 3.5 mmol/L (3.5-5.1); Sodium Level 143 mmol/L (136-145)
[2023-08-16 06:55] LABS: Bedside Glucose 102 mg/dL (74-106)
[2023-08-16 07:40] VITALS: O2SAT 96
[2023-08-16] MEDS: Lactated Ringers 1,000 ML 75 ML IV (09:51)
[2023-08-16 09:52] VITALS: BP 122/85; PULSE 100; RESP 16; TEMP 36.8; O2SAT 99
[2023-08-16] MEDS: Insulin Glargine-YFGN 100 UNIT/ML Pen 25 UNIT SC ×2 (09:54→22:01)
[2023-08-16] MEDS: Pantoprazole Sodium 40 MG Tablet PO (09:57)
[2023-08-16] MEDS: Insulin Lispro 100 UNIT/ML INSULN.PEN 15 UNIT SC ×3 (09:58→17:14)
[2023-08-16] MEDS: Insulin Lispro 100 UNIT/ML INSULN.PEN SC (11:48)
[2023-08-16 12:07] LABS: Bedside Glucose 181 mg/dL (74-106)
[2023-08-16 12:21] LABS: Partial Thromboplast Time 41.9 Seconds (24.1-36.2)
--- NOTE | 2023-08-16 12:30 | PN.HOSP_ITS ---
Reason for Visit Reason for Visit: Diagnoses Other pulmonary embolism without acute cor pulmonale (08/15/23) Subjective Subjective Patient is a 32-year-old gentleman with history of diabetes mellitus type 1 with multiple admissions for DKA who presented with dyspnea on exertion. CTA of the chest obtained on admission demonstrated extensive bilateral pulmonary emboli including saddle embolus. Patient was started on systemic anticoagulation ad mitted to a monitored bed for further management Objective Data Objective Data Vital Signs: Vital Signs Temp Pulse Resp BP Pulse Ox O2 Del Method 98.2 F 100 16 122/85 H 99 Room Air 08/16/23 09:52 08/16/23 09:52 08/16/23 09:52 08/16/23 09:52 08/16/23 09:52 08/16/23 09:55 Oxygen Delivery Method Room Air Weight: 93.416 kg Body Mass Index (BMI) 27.1 Intake & Output: Intake and Output for Last 24 Hours 08/14/23 08/15/23 08/16/23 23:59 23:59 23:59 Intake Total 2056.5 / 2056.5 193.75 / 1934.75 Balance 2056. / 2056.5 1933.75 / 1933.75 Lab / Micro Data 08/16/23 04:45 08/16/23 04:45 Labs: Laboratory Results - last 24 hr 08/15/23 14:45: WBC 5.4, RBC 4.96, Hgb 10.2 L, Hct 34.8 L, MCV 70.2 L, MCH 20.6 L, MCHC 29.3 L, RDW Std Deviation 40.7, RDW Coeff of Rabia 16.3 H, Plt Count 283, MPV 9.4, Immature Gran % (Auto) 0.200, Neut % (Auto) 65.5, Lymph % (Auto) 27.8, [place] % (Auto) 5.2, Eos % (Auto) 0.7, Baso % (Auto) 0.6, Absolute Neuts (auto) 3.5, Absolute Lymphs (auto) 1.50, Nucleated RBC % 0, PT 13.9, INR 1.1, APTT 26.0, Sodium 134 L, Potassium 3.9, Chloride 103, Carbon Dioxide 23.0, Anion Gap 8, BUN 22 H, Creatinine 1.14, Estim Creat Clear Calc 111.56, Est GFR (MDRD) Af Amer 103, Est GFR (MDRD) Non-Af 85, BUN/Creatinine Ratio 19.3, Glucose 529 H*, Hemoglobin A1c 11.5 H, Calcium 8.7, Iron 19 L, TIBC 555 H, Iron Saturation 3.4 L , Ferritin 10 L, Total Bilirubin 0.70, Direct Bilirubin 0.20, AST 14 L, ALT 21, Alkaline Phosphatase 116, Troponin I High Sens 16, B-Natriuretic Peptide 227.8 H , Total Protein 7.2, Albumin 3.5, Globulin 3.7, Vitamin B12 285, Folate 16.40, Acetone Level NEGATIVE 08/15/23 14:55: Phosphorus 4.5, Magnesium 1.8 08/15/23 16:30: Urine Color Yellow, Urine Clarity Cloudy, Urine pH 6.0, Ur Specific [place] 1.025, Urine Protein 30 H, Urine Glucose (UA) 250 H, Urine Ketones Negative, Urine Occult Blood Negative, Urine Nitrite Negative, Urine Bilirubin Negative, Urine Urobilinogen Normal, Ur Leukocyte Esterase 500 H, Urine RBC 0 SEEN, Urine WBC 50-100 SEEN, Ur Squamous Epith Cells 0 SEEN, Urine Bacteria 0 SEEN, Urine Mucus 0 SEEN, Urine Yeast 4+ 08/15/23 18:00: POC Glucose 408 H 08/15/23 21:59: POC Glucose 180 H 08/15/23 22:03: APTT 39.3 H 08/16/23 03:55: POC Glucose 82 08/16/23 04:45: WBC 5.2, RBC 4.52 L, Hgb 9.2 L, Hct 32.3 L, MCV 71.5 L, MCH 20.4 L, MCHC 28.5 L, RDW Std Deviation 41.0, RDW Coeff of Rabia 16.3 H, Plt Count 266, MPV 8.9, APTT 48.1 H, Sodium 143, Potassium 3.5, Chloride 113 H, Carbon Dioxide 25.0, Anion Gap 5, BUN 16, Creatinine 0.77, Estim Creat Clear Calc 170.06, Est GFR (MDRD) Af Amer 163, Est GFR (MDRD) Non-Af 134, BUN/Creatinine Ratio 20.9 H, Glucose 83, Calcium 8.3 L 08/16/23 06:33: POC Glucose 102 08/16/23 11:45: POC Glucose 181 H 08/16/23 12:04: APTT 41.9 H Radiography Diagnostic Testing: Radiology Impression Chest CTA 08/15/23 14:59 IMPRESSION: Extensive bilateral pulmonary emboli including saddle embolus. N.B. : The above Results were Read Back by Willy Callahan MD to Ross Adair DO, and understanding confirmed on 08/15/2023 15:46:30 (ET). Electronically Signed: Willy Callahan MD at 15:48 EDT , ADDENDUM: 08/15/23 1555 IMPRESSION: Extensive bilateral pulmonary emboli including saddle embolus. N.B. : The above Results were Read Back by Willy Callahan MD to Ross Adair DO, and understanding confirmed on 08/15/2023 15:46:30 (ET). Electronically Signed: Willy Callahan MD at 15:48 EDT , Physical Exam Narrative GENERAL: cooperative HEENT: Atraumatic; normocephalic EYES; Anicteric, Normal Conjunctiva NECK; supple, normal thyroid, RESPIRATORY: Diminished to auscultation CARDIOVASCULAR: Regular S1 S2, GI: soft, normoactive bowel sounds, : No Renal angle tenderness; EXTREMITIES: No edema, no clubbing, MUSCULOSKELETAL: no muscle wasting NEURO: Awake; no lateralizing signs. SKIN: No Rash PSYCH; Flat affect Assessment & Plan Assessment/Plan (1) Recurrent pulmonary embolism: PLAN: Plan Patient is a 32-year-old gentleman with history of diabetes mellitus type 1 with multiple admissions for DKA who presented with dyspnea on exertion. CTA of the chest obtained on admission demonstrated extensive bilateral pulmonary emboli including saddle embolus. Patient was started on systemic anticoagulation admitted to a monitored bed for further management 1. Acute VTE -Patient with previous VTE noncompliant with medication. CTA of the chest demonstrated extensive bilateral pulm emboli including saddle embolus, normal heart and pericardium, low concern for right heart strain.. Admitted to monitored bed patient started on heparin with plans to transition to Xarelto which had previously been prescribed 2. Diabetes mellitus type 1 with poor control ? Patient was found to have hyperglycemia with glucose level of 529 on admission he was however in DKA. Restarted his home insulin regimen and rehydrated 3. Anemia - Secondary to chronic disorder monitoring H&H and transfuse if patient becomes symptomatic or hemoglobin falls below 7 Time spent in the patient's overall evaluation,decision-making process, review of diagnostic data, adjustment of management, discussion with other providers, nursing nursing and ancillary staff involved in patient's care documentation, 40 Minutes Charges/Coding Visit Charges Inpatient E&M: 27643 Subs Hosp L2
[2023-08-16] MEDS: Rivaroxaban 15 MG Tablet PO (15:03)
--- NOTE | 2023-08-16 16:10 | CASEMGMT ---
RN?CM?[employer]PER[employer]?CM?to room to meet with patient for initial transition planning/care coordination?assessment.?RN?CM?introduced self and role at [facility].? Pt voices understanding and consents to?assessment?at this time.? Pt resting in bed in no distress at this time.? Pt is A/O at this time and answers all questions appropriately.?? Care providers, pharmacy, and demographics verified/updated at this time. PCP: Dr Reyes or Serena Correa NP. Pt states he is not aware of any upcoming appts. Specialists: Elise Raymond-endocrinology. [facility] but states has not been going there and is not interested in going back again. [facility] but does not go there any longer. [facility]erred [facility]acy: [facility]. Pt states his grandmother gets his medications for him from there. Insurance: [employer] Prescription Benefit: yes ? Living Will/HPOA: Pt does not have LW, but has completed HCPOA, and his grandmother, Ines, is his HCPOA. This is on file/in pt's medical records @ [facility]. LNOK: Grandmother-Ines/WILFREDO, mother-Ines, brother-Ezekiel, aunt-Sobia, cousin-Krishan Living Arrangements: Patient lives with grandmother, mother, brother, and aunt in a 2-story home. ?Patient stays in basement with grandmother. ?12 steps for patient with railing. ?Patient states he is independent and able to ambulate stairs. ?Pt states his grandmother gets his medications for him and she assists w/medication mgnt as needed, although he often manages them on his own. His grandmother manages his appts and takes him to his appts. Transportation: grandmother provides transportation and he denies having any concerns at this time. Pt has used transportation services through [employer] in the past and is also aware of [facility] van transp to [facility] affiliates, if needed. DME: Patient states he has cane at home that he uses. He also has a walker available, if needed. ?Patient has functioning glucometer and states he has all diabetic supplies needed. He also reports he has enough insulin and medications. He also uses a CGM system. He states just used the last sensor and it just ended the day he came to [facility]. He states there are refills remaining for the sensors, that his grandmother is aware they are needed, and that she was going to go get them for him. He denies need for further DME at this time. HHC/Pt Link/[facility]N: Pt has had [facility] and [facility] in the past, but was discharged from the program d/t no-shows to appts with them and not responding to calls and messages. Pt states he wishes to discharge home when medically ready. He declines need for HHC. CM?to follow for any discharge planning/needs.? Pt voices no further concerns/needs at this time.? Advised pt to ask for?CM?if any further questions/concerns/needs arise.? Voices understanding. Plan: Patient to discharge home with family support and follow-up plans in place. ? Ena MONTEZ RN CM
[2023-08-16 17:26] VITALS: BP 134/82; PULSE 100; RESP 16; TEMP 36.6; O2SAT 97
[2023-08-16 17:33] LABS: Bedside Glucose 82 mg/dL (74-106)
[2023-08-16 17:33] LABS: Bedside Glucose 58 mg/dL (74-106)
[2023-08-16 17:33] LABS: Bedside Glucose 256 mg/dL (74-106)
[2023-08-16 22:05] VITALS: BP 115/70; PULSE 114; RESP 17; TEMP 36.7; O2SAT 100
[2023-08-16 23:51] LABS: Bedside Glucose 109 mg/dL (74-106)
[2023-08-17 03:01] LABS: Bedside Glucose 111 mg/dL (74-106)
[2023-08-17 03:04] VITALS: BP 106/61; PULSE 104; RESP 15; TEMP 36.6; O2SAT 98
[2023-08-17 06:08] LABS: Hematocrit 32.6 % (40-54); Hemoglobin 9.2 g/dL (13.0-16.5); Mean Corp Hgb Conc 28.2 g/dL (32-36); Mean Corpuscular Hgb 20.4 pg (27.0-32.0); Mean Corpuscular Volume 72.3 fL (80-94); Mean Platelet Vol. 9.2 fl (6.2-12.0); Platelet Count 257 K/mm3 (150-450); RBC Distribution Width SD 41.3 fl (35.1-43.9); Red Blood Count 4.51 M/mm3 (4.6-6.2); White Blood Count 4.7 K/mm3 (4.4-11.0)
[2023-08-17 06:31] LABS: Anion Gap 4 (5-15); BUN 13 mg/dL (7-18); BUN/Creat Ratio 20.2 RATIO (10-20); Calcium,Total 8.4 mg/dL (8.5-10.1); Chloride 115 mmol/L (98-107); Creatinine, Serum 0.64 mg/dL (0.70-1.30); EST Glomerular Filtration Rate 164 mL/min (>60); Est Glom Filt Rate - Afr Amer 199 mL/min (>60); Estimated Creatinine Clearance 204.61 ml/min; Glucose 50 mg/dL (74-106); Potassium 3.5 mmol/L (3.5-5.1); Sodium Level 143 mmol/L (136-145)
[2023-08-17 07:53] VITALS: BP 115/77; PULSE 90; RESP 15; TEMP 36.4; O2SAT 100
[2023-08-17] MEDS: Pantoprazole Sodium 40 MG Tablet PO (08:47)
[2023-08-17] MEDS: Insulin Glargine-YFGN 100 UNIT/ML Pen 25 UNIT SC ×2 (08:47→21:32)
[2023-08-17] MEDS: Rivaroxaban 15 MG Tablet PO ×2 (08:47→18:38)
--- NOTE | 2023-08-17 08:57 | PCM.PN.HOSP ---
Reason for Visit Reason for Visit: Diagnoses Other pulmonary embolism without acute cor pulmonale (08/15/23) Subjective Subjective Patient seen was transitioned from heparin to rivaroxaban. Echo demonstrated RVSP of 54 mmHg. Plan is to monitor patient for additional day with possible discharge on 08/18/2023 Objective Data Objective Data Vital Signs: Vital Signs Temp Pulse Resp BP Pulse Ox O2 Del Method 97.5 F L 90 15 115/77 100 Room Air 08/17/23 07:53 08/17/23 07:53 08/17/23 07:53 08/17/23 07:53 08/17/23 07:53 08/17/23 07:53 Oxygen Delivery Method Room Air Weight: 93.416 kg Body Mass Index (BMI) 27.1 Intake & Output: Intake and Output for Last 24 Hours 08/15/23 08/16/23 08/17/23 23:59 23:59 23:59 Intake Total 2057.5 / 2057.5 2585.25 / 2585.25 Output Total 200 / 200 Balance 2057.5 / 2057.5 2385.25 / 2385.25 Lab / Micro Data 08/17/23 06:01 08/17/23 06:01 Labs: Laboratory Results - last 24 hr 08/16/23 11:45: POC Glucose 181 H 08/16/23 12:04: APTT 41.9 H 08/16/23 14:38: POC Glucose 58 L 08/16/23 15:07: POC Glucose 82 08/16/23 17:12: POC Glucose 256 H 08/16/23 21:58: POC Glucose 109 H 08/17/23 02:40: POC Glucose 111 H 08/17/23 06:01: WBC 4.7, RBC 4.51 L, Hgb 9.2 L, Hct 32.6 L, MCV 72.3 L, MCH 20.4 L, MCHC 28.2 L, RDW Std Deviation 41.3, RDW Coeff of Rabia 16.0 H, Plt Count 257, MPV 9.2, Sodium 143, Potassium 3.5, Chloride 115 H, Carbon Dioxide 24.0, Anion Gap 4 L, BUN 13, Creatinine 0.64 L, Estim Creat Clear Calc 204.61, Est GFR (MDRD) Af Amer 199, Est GFR (MDRD) Non-Af 164, BUN/Creatinine Ratio 20.2 H, Glucose 50 L, Calcium 8.4 L Radiography Diagnostic Testing: Radiology Impression Venous Doppler Study 08/15/23 16:17 Interpretation Summary Acute deep vein thrombosis is noted in the left popliteal vein, tibioperoneal trunk vein. Acute deep vein thrombosis is noted in the right tibio-peroneal trunk. Ordering Physician: Anurag Baxter Referring Physician: Mario Brothers M.D. Performed By: John Victor RVT Echocardiogram 08/15/23 17:01 Interpretation Summary Normal LV size. Left ventricular systolic function is normal. D shaped septum in systole and diastole. Pulmonary artery systolic pressure is 54 mmHg. Moderate pulmonary hypertension. Ordering Physician: Anurag Baxter Referring Physician: MARIO BROTHERS Performed By: Laura Zhong RDCS Physical Exam Narrative GENERAL: cooperative HEENT: Atraumatic; normocephalic EYES; Anicteric, Normal Conjunctiva NECK; supple, normal thyroid, RESPIRATORY: Diminished to auscultation CARDIOVASCULAR: Regular S1 S2, GI: soft, normoactive bowel sounds, : No Renal angle tenderness; EXTREMITIES: No edema, no clubbing, MUSCULOSKELETAL: no muscle wasting NEURO: Awake; no lateralizing signs. SKIN: No Rash PSYCH; Flat affect Assessment & Plan Assessment/Plan (1) Recurrent pulmonary embolism: PLAN: Plan Patient is a 32-year-old gentleman with history of diabetes mellitus type 1 with multiple admissions for DKA who presented with dyspnea on exertion. CTA of the chest obtained on admission demonstrated extensive bilateral pulmonary emboli including saddle embolus. Patient was started on systemic anticoagulation admitted to a monitored bed for further management 1. Acute VTE -Patient with previous VTE noncompliant with medication. CTA of the chest demonstrated extensive bilateral pulm emboli including saddle embolus, normal heart and pericardium, low concern for right heart strain.. Admitted to monitored bed patient started on heparin with plans to transition to Xarelto which had previously been prescribed -08/18/2023 patient seen was transitioned from heparin to rivaroxaban. Echo demonstrated RVSP of 54 mmHg. Plan is to monitor patient for additional day with possible discharge on 08/18/2023 2. Diabetes mellitus type 1 with poor control ? Patient was found to have hyperglycemia with glucose level of 529 on admission he was however in DKA. Restarted his home insulin regimen and rehydrated 3. Anemia - Secondary to chronic disorder monitoring H&H and transfuse if patient becomes symptomatic or hemoglobin falls below 7 Time spent in the patient's overall evaluation,decision-making process, review of diagnostic data, adjustment of management, discussion with other providers, nursing nursing and ancillary staff involved in patient's care documentation, 35 minutes Charges/Coding Visit Charges Inpatient E&M: 10813 Subs Hosp L2
[2023-08-17] MEDS: Insulin Lispro 100 UNIT/ML INSULN.PEN SC (12:12)
[2023-08-17] MEDS: Insulin Lispro 100 UNIT/ML INSULN.PEN 15 UNIT SC (12:13)
[2023-08-17 12:49] LABS: Bedside Glucose 144 mg/dL (74-106)
[2023-08-17 12:49] LABS: Bedside Glucose 59 mg/dL (74-106)
[2023-08-17 12:50] LABS: Bedside Glucose 239 mg/dL (74-106)
[2023-08-17 14:00] VITALS: BP 132/91; PULSE 110; RESP 15; TEMP 37.1; O2SAT 100
[2023-08-17 16:43] LABS: Bedside Glucose 98 mg/dL (74-106)
[2023-08-17 20:30] VITALS: BP 119/81; PULSE 90; RESP 15; TEMP 37; O2SAT 100
[2023-08-17 21:43] LABS: Bedside Glucose 150 mg/dL (74-106)
[2023-08-18 03:05] VITALS: BP 100/64; PULSE 83; RESP 15; TEMP 36.5; O2SAT 98
[2023-08-18 03:43] LABS: Bedside Glucose 127 mg/dL (74-106)
[2023-08-18 08:00] LABS: Hematocrit 33.2 % (40-54); Hemoglobin 9.6 g/dL (13.0-16.5); Mean Corp Hgb Conc 28.9 g/dL (32-36); Mean Corpuscular Hgb 20.4 pg (27.0-32.0); Mean Corpuscular Volume 70.6 fL (80-94); Mean Platelet Vol. 9.1 fl (6.2-12.0); Platelet Count 249 K/mm3 (150-450); RBC Distribution Width CV 15.8 % (11.6-14.6); White Blood Count 4.1 K/mm3 (4.4-11.0)
[2023-08-18 08:21] LABS: Bedside Glucose 40 mg/dL (74-106)
[2023-08-18 08:33] LABS: Anion Gap 6 (5-15); BUN 13 mg/dL (7-18); BUN/Creat Ratio 20.2 RATIO (10-20); Calcium,Total 8.6 mg/dL (8.5-10.1); Chloride 111 mmol/L (98-107); Creatinine, Serum 0.64 mg/dL (0.70-1.30); EST Glomerular Filtration Rate 165 mL/min (>60); Est Glom Filt Rate - Afr Amer 199 mL/min (>60); Estimated Creatinine Clearance 204.61 ml/min; Glucose 49 mg/dL (74-106); Potassium 3.9 mmol/L (3.5-5.1); Sodium Level 140 mmol/L (136-145)
[2023-08-18 08:44] LABS: Bedside Glucose 50 mg/dL (74-106)
[2023-08-18 08:45] VITALS: BP 119/83; PULSE 100; RESP 18; TEMP 36.8; O2SAT 100
[2023-08-18] MEDS: Pantoprazole Sodium 40 MG Tablet PO (08:47)
[2023-08-18] MEDS: Rivaroxaban 15 MG Tablet PO (08:47)
[2023-08-18 09:06] LABS: Bedside Glucose 86 mg/dL (74-106)
[2023-08-18] MEDS: Insulin Lispro 100 UNIT/ML INSULN.PEN SC ×2 (11:58)
--- NOTE | 2023-08-18 12:00 | PCM.DC ---
Discharge Instructions Diet Discharge Diet: Carb Control Diet Activity Discharge Activity: Return to Normal Activity Follow Up Care Test Results: Test results from this visit will be discussed in further detail at your follow-up appointment, if applicable. Discharge Plan Admission Admit Date/Time: 08/15/23 16:10 Primary Reason for Your Visit: Pulmonary embolisms Attending Provider: Radha Randolph Primary Care Provider: Mario Reyes Consulting Providers: Anurag Baxter; Will Mason Instructions Patient Instructions: DVT/PE Discharge instruction sheet Additional Instructions / Restrictions: DISCHARGE INSTRUCTIONS PLEASE READ *Please take this with you to your next doctors appointment* -You will be discharged on Xarelto. Take one-15 mg tablet twice daily for 21 days, then one-20 mg tablet once daily; must take with meal/food -Your insulin was adjusted as per med list due to low blood sugars, it is likely this will need to be increased again over time, please contact your medical technologist microbiology and PCP upon discharge to discuss and schedule follow-up appointments -Please call your primary care provider's office upon discharge to schedule a hospital follow up within 1 week. -For any concerning signs or symptoms please call 911 or proceed to the nearest emergency department Discharge Orders/Prescriptions Prescriptions: New Xarelto DVT-PE Treat 30d Start 15 mg (42)- 20 mg (9) tablets,dose pack See Rx Instructions .ROUTE .COMPLEX Qty: 51 0RF Rx Instructions: take one-15 mg tablet twice daily for 21 days, then one-20 mg tablet once daily; must take with meal/food Continued insulin lispro [Humalog KwikPen Insulin] 100 unit/mL insulin pen See Protocol subcut [facility] Protocol: 1. Sliding Scale Insulin Low Dosing Condition: 150-224 mg/dl = 1 unit Condition: 225-299 mg/dl = 2 units Condition: 300-374 mg/dl = 3 units Condition: 375-499 mg/dl = 4 units Condition: Greater than 449 call physician Protocol Text: - Use for Total Daily Dose of Insulin 15-27 units - Thin, elderly, renal patients LOW DOSING ALGORITHM (DME) OneTouch Verio test strips Strip See Rx Instructions .ROUTE .MEDSUPPLY Rx Instructions: 4x/day (DME) pen needle, diabetic [BD Ultra-Fine Lorin Pen Needle] 32 gauge x 5/32 needle See Rx Instructions .ROUTE .MEDSUPPLY Rx Instructions: As directed (DME) FreeStyle Niru 14 Day Sensor Kit See Rx Instructions .ROUTE .MEDSUPPLY Rx Instructions: As directed potassium chloride 20 mEq tablet,ER particles/crystals 40 meq PO DAILY Patient Comments: TAKE 1 TABLET BY MOUTH TWICE DAILY WITH MEALS Changed insulin lispro 100 unit/mL insulin pen 15 unit subcut TIDAC Qty: 30 0RF Rx Instructions: Hold if glucose less than 130 mg/dl insulin glargine [Lantus Solostar U-100 Insulin] 100 unit/mL (3 mL) insulin pen 25 unit SUBCUT BID Qty: 30 0RF Rx Instructions: Hold if glucose less than 130 mg/dl Discontinued acetaminophen [Tylenol] 325 mg Tablet 325 mg PO Q6H PRN (Reason: Pain) Xarelto 20 mg Tablet 20 mg PO DAILY Qty: 30 1RF omeprazole 20 mg Tablet,Delayed Release (Dr/Ec) 40 mg PO DAILY 30 Days Qty: 30 2RF Referrals / Follow Up: Mario Reyes MD [Primary Care Provider] - Within 1 Week Disposition Disposition (needs filled in before D/C Order can be placed): Home, Self Care
--- NOTE | 2023-08-18 12:06 | PCM.DC.SUM ---
Providers Date of Admission: 08/15/23 Date of Discharge: 08/18/23 Primary Care Physician: Dr. Mario Reyes MD Reason For Visit: PULMONARY EMBOLISM Diagnosis Discharge Diagnosis (1) Recurrent pulmonary embolism: Status: Acute Code(s): I26.99 - Other pulmonary embolism without acute cor pulmonale Plan #Recurrent bilat PEs #DMI, poorly controlled #Chronic anemia #GERD Medications at Discharge Home Medications insulin lispro 100 unit/mL subcutaneous pen (Humalog KwikPen (U-100) Insulin) See Protocol subcut ACHS DM 07/24/22 blood sugar diagnostic (Spotteduch Verio test strips) 02/27/23 flash glucose sensor (FreeStyle Niru 14 Day Sensor kit) 02/27/23 pen needle, diabetic 32 gauge x 5/32 (BD Ultra-Fine Lorin Pen Needle) 02/27/23 potassium chloride 20 mEq tablet,extended release(part/cryst) 40 meq PO DAILY supplement 08/15/23 insulin glargine 100 unit/mL (3 mL) subcutaneous pen (Lantus Solostar U-100 Insulin) 25 unit (0.25 mL) subcut BID DIABETES #30 mL 08/18/23 insulin lispro 100 unit/mL subcutaneous pen 15 unit (0.15 mL) subcut TIDAC DIABETES #30 mL 08/18/23 rivaroxaban 15 mg (42)-20 mg (9) tablets in a starter pack (Xarelto DVT-PE Treatment 30-Day Starter) See Rx Instructions PO .COMPLEX #51 tabs 08/18/23 Hospital Course Summary of Care Provided Minutes Spent on Discharge: 35 Hospital Course: SHIRA STEPHENSON, is a 22 M with history of DVT/PE in 07/2022, 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 Echo demonstrated RVSP of 54 mmHg. Patient with no hypoxia or respiratory complaints on day of discharge, did have an episode of low blood sugar and reports he follows with endocrinology and monitors his glucose at home. Patient agreeable for discharge. Discharge instructions as follows: -You will be discharged on Xarelto. Take one-15 mg tablet twice daily for 21 days, then one-20 mg tablet once daily; must take with meal/food - Would recommend repeat echocardiogram in 6 weeks, this can be done through your primary care physician office. Please call their office to coordinate -Your insulin was adjusted as per med list due to low blood sugars, it is likely this will need to be increased again over time, please contact your business analyst sales operations and PCP upon discharge to discuss and schedule follow-up appointments -Please call your primary care provider's office upon discharge to schedule a hospital follow up within 1 week. -For any concerning signs or symptoms please call 911 or proceed to the nearest emergency department Physical Exam Narrative General: Alert, oriented, no apparent distress HEENT: Atraumatic, normocephalic Eyes: Anicteric, normal conjunctiva, extraocular movements grossly intact Neck: Supple Respiratory: Clear to auscultation bilaterally, normal respiratory effort Cardiovascular: Regular rate and rhythm GI: Soft, nontender, nondistended Extremities: No edema Musculoskeletal: Moving all extremities Neuro: No overt focal neurological deficits Skin: No rashes appreciated Psych: Cooperative Weight / BMI Weight Weight: 93.416 kg Body Mass Index (BMI) 27.1 ABG / Lab / Microbiology Data 08/18/23 07:40 08/18/23 07:40 Laboratory: Laboratory Results - last 24 hr 08/17/23 07:48: POC Glucose 59 L 08/17/23 08:45: POC Glucose 144 H 08/17/23 12:11: POC Glucose 239 H 08/17/23 16:18: POC Glucose 98 08/17/23 21:20: POC Glucose 150 H 08/18/23 03:05: POC Glucose 127 H 08/18/23 07:40: WBC 4.1 L, RBC 4.70, Hgb 9.6 L, Hct 33.2 L, MCV 70.6 L, MCH 20.4 L, MCHC 28.9 L, RDW Std Deviation 40.0, RDW Coeff of Rabia 15.8 H, Plt Count 249, MPV 9.1, Sodium 140, Potassium 3.9, Chloride 111 H, Carbon Dioxide 23.0, Anion Gap 6, BUN 13, Creatinine 0.64 L, Estim Creat Clear Calc 204.61, Est GFR (MDRD) Af Amer 199, Est GFR (MDRD) Non-Af 165, BUN/Creatinine Ratio 20.2 H, Glucose 49 L, Calcium 8.6 08/18/23 08:00: POC Glucose 40 L* 08/18/23 08:25: POC Glucose 50 L 08/18/23 08:44: POC Glucose 86 D/C Instructions Discharge Diet: Carb Control Diet Meaningful Use Info Meaningful Use Diagnoses (Choose all that apply): VTE VTE Anticoag overlap given w/in hospital stay or rx'd at dc?: Yes Pt receive overlap for 5 days?: Yes Discharge Plan Admission Admit Date/Time: 08/15/23 16:10 Primary Reason for Your Visit: Pulmonary embolisms Attending Provider: Radha Randolph Primary Care Provider: Mario Reyes Consulting Providers: Anurag Baxter; Will Mason Instructions Patient Instructions: DVT/PE Discharge instruction sheet Additional Instructions / Restrictions: DISCHARGE INSTRUCTIONS PLEASE READ *Please take this with you to your next doctors appointment* -You will be discharged on Xarelto. Take one-15 mg tablet twice daily for 21 days, then one-20 mg tablet once daily; must take with meal/food - Would recommend repeat echocardiogram in 6 weeks, this can be done through your primary care physician office. Please call their office to coordinate -Your insulin was adjusted as per med list due to low blood sugars, it is likely this will need to be increased again over time, please contact your business analyst sales operations and PCP upon discharge to discuss and schedule follow-up appointments -Please call your primary care provider's office upon discharge to schedule a hospital follow up within 1 week. -For any concerning signs or symptoms please call 911 or proceed to the nearest emergency department Discharge Orders/Prescriptions Prescriptions: New Xarelto DVT-PE Treat 30d Start 15 mg (42)- 20 mg (9) tablets,dose pack See Rx Instructions .ROUTE .COMPLEX Qty: 51 0RF Rx Instructions: take one-15 mg tablet twice daily for 21 days, then one-20 mg tablet once daily; must take with meal/food Continued insulin lispro [Humalog KwikPen Insulin] 100 unit/mL insulin pen See Protocol subcut ACHS Protocol: 1. Sliding Scale Insulin Low Dosing Condition: 150-224 mg/dl = 1 unit Condition: 225-299 mg/dl = 2 units Condition: 300-374 mg/dl = 3 units Condition: 375-499 mg/dl = 4 units Condition: Greater than 449 call physician Protocol Text: - Use for Total Daily Dose of Insulin 15-27 units - Thin, elderly, renal patients LOW DOSING ALGORITHM (DME) OneTouch Verio test strips Strip See Rx Instructions .ROUTE .MEDSUPPLY Rx Instructions: 4x/day (DME) pen needle, diabetic [BD Ultra-Fine Lorin Pen Needle] 32 gauge x 5/32 needle See Rx Instructions .ROUTE .MEDSUPPLY Rx Instructions: As directed (DME) FreeStyle Niru 14 Day Sensor Kit See Rx Instructions .ROUTE .MEDSUPPLY Rx Instructions: As directed potassium chloride 20 mEq tablet,ER particles/crystals 40 meq PO DAILY Patient Comments: TAKE 1 TABLET BY MOUTH TWICE DAILY WITH MEALS Changed insulin lispro 100 unit/mL insulin pen 15 unit subcut TIDAC Qty: 30 0RF Rx Instructions: Hold if glucose less than 130 mg/dl insulin glargine [Lantus Solostar U-100 Insulin] 100 unit/mL (3 mL) insulin pen 25 unit SUBCUT BID Qty: 30 0RF Rx Instructions: Hold if glucose less than 130 mg/dl Discontinued acetaminophen [Tylenol] 325 mg Tablet 325 mg PO Q6H PRN (Reason: Pain) Xarelto 20 mg Tablet 20 mg PO DAILY Qty: 30 1RF omeprazole 20 mg Tablet,Delayed Release (Dr/Ec) 40 mg PO DAILY 30 Days Qty: 30 2RF Referrals / Follow Up: Mario Reyes MD [Primary Care Provider] - Within 1 Week Disposition Disposition (needs filled in before D/C Order can be placed): Home, Self Care Charges/Coding Visit Charges Inpatient E&M: 25257 Disch Hosp >30min
[2023-08-18 12:27] LABS: Bedside Glucose 259 mg/dL (74-106)
[2023-08-18 13:20] VITALS: BP 126/88; PULSE 101; RESP 18; TEMP 36.4; O2SAT 98
== END 2023-08-18 13:45 | disposition home or self-care (01) | DRG 134 ==
LOC: ED 14:48 → PCU 16:06
PROVIDERS: Internal Medicine; Admitting Provider Hospitalist; Emergency Provider Emergency Medicine; PCP Internal Medicine; Visit Provider Internal Medicine
DX: I26.92 Saddle embolus of pulmonary artery without acute cor pulmonale (principal); D63.8 Anemia in other chronic diseases classified elsewhere; E10.65 Type 1 diabetes mellitus with hyperglycemia; Z79.4 Long term (current) use of insulin; K21.9 Gastro-esophageal reflux disease without esophagitis; Z86.711 Personal history of pulmonary embolism; Z86.718 Personal history of other venous thrombosis and embolism; Z86.79 Personal history of other diseases of the circulatory system
CPT/HCPCS: 36415; 71275; 80048; 80076; 81001; 82009; 82607; 82728; 82746; 82962; 83036; 83540; 83550; 83735; 83880; 84100; 84484; 85025; 85027; 85610; 85730; 93005; 93306; 93970; 94668; 97802; 99252; 99284; J7030; J7120; Q9967; A4216; G0463

== ENCOUNTER 2023-09-15 14:51 | Inpatient (IN) | payer MEDICAID, SELFPAY ==
[2023-09-15] VITALS (13 sets, daily range): BP systolic 90–121; BP diastolic 34–92; PULSE 115–123; RESP 15–28; TEMP 35.7–36.2; O2SAT 99–100; BMI 27.0; BMI 25.7
--- NOTE | 2023-09-15 15:08 | EKG12_ITS ---
Test Reason : TACHYCARDIA Blood Pressure : / mmHG Vent. Rate : 120 BPM Atrial Rate : 120 BPM P-R Int : 150 ms QRS Dur : 120 ms QT Int : 338 ms P-R-T Axes : 072 078 048 degrees QTc Int : 477 ms Sinus tachycardia Right bundle branch block Abnormal ECG Confirmed by SHERMAN CASTILLO, KEVIN ([id number]), map editor QUE BLANC ([id number]) on 09/24/2023 7:00:12 AM Referred By: AR Confirmed By:SUSY WHITAKER MD
--- NOTE | 2023-09-15 15:08 | EX.ED.DYSGE1 ---
HPI History of Present Illness Chief Complaint: Hyperglycemia Narrative Narrative: 22-year-old male past medical history of type 1 diabetes, has had multiple episodes of diabetic ketoacidosis, presents with generalized weakness, elevated blood sugars, and nausea and vomiting. He is a poor historian most likely secondary to metabolic encephalopathy. States he is vomited multiple times in the last 24 hours, and cannot count how many. He is unsure the last time he has been admitted for diabetic ketoacidosis. He states he takes insulin and oral medications. 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 on technical photographer Type 1 diabetes Ulcer of leg, chronic Wound of left lower extremity Home Medications insulin lispro 100 unit/mL subcutaneous pen (Humalog KwikPen (U-100) Insulin) See Protocol subcut ACHS DM 07/24/22 [History Last Taken Unknown] blood sugar diagnostic (OneTouch Verio test strips) 02/27/23 [History Last Taken Unknown] flash glucose sensor (FreeStyle Niru 14 Day Sensor kit) 02/27/23 [History Last Taken Unknown] pen needle, diabetic 32 gauge x 5/32 (BD Ultra-Fine Lorin Pen Needle) 02/27/23 [History Last Taken Unknown] potassium chloride 20 mEq tablet,extended release(part/cryst) 40 meq PO DAILY supplement 08/15/23 [History Last Taken Unknown] insulin glargine 100 unit/mL (3 mL) subcutaneous pen (Lantus Solostar U-100 Insulin) 25 unit (0.25 mL) subcut BID DIABETES #30 mL 08/18/23 [Rx Last Taken Unknown] insulin lispro 100 unit/mL subcutaneous pen 15 unit (0.15 mL) subcut TIDAC DIABETES #30 mL 08/18/23 [Rx Last Taken Unknown] rivaroxaban 15 mg (42)-20 mg (9) tablets in a starter pack (Xarelto DVT-PE Treatment 30-Day Starter) See Rx Instructions PO .COMPLEX #51 tabs 10/07/23 [Rx Last Taken Unknown] Allergy/AdvReac Type Severity Reaction Status Date / Time vancomycin Allergy local Verified 09/15/23 14:59 rash/hives to IV site Family History Father Polysubstance overdose Patient father young secondary to OD. Mother Iron deficiency anemia Other Asthma CVA (cerebral vascular accident) Diabetes Hypertension Thyroid disorder Surgical History H/O right knee surgery History of surgery on extremity Hx of knee surgery Social History housing: other details: Lives with his grandmother, aunt and mother. Smoking Status: Never smoker alcohol intake: current alcohol intake frequency: a few times a month substance use type: does not use ROS ROS ED ROS Narrative Constitutional: No fever, no chills. Generalized weakness. HEENT: No sore throat. No neck pain. No loss of vision. No rhinorrhea. Cardiovascular: No chest pain. No palpitations. No pedal edema. Respiratory: No cough, no shortness of breath. Abdominal: No abdominal pain. Multiple episodes of nausea and vomiting, nonbloody. Genitourinary: No dysuria. No hematuria. Musculoskeletal: No myalgias. No arthralgias. Neurologic: No headaches. No dizziness. No lightheadedness. Skin: No rash. No change in color. Psychiatric: No depression. No anxiety. EXAM Physical Exam Narrative Exam Narrative: Afebrile. Vital signs noted. HEENT: Normocephalic. Atraumatic. PERRL, EOMI. Neck soft and supple. No point tenderness or step off. Tacky mucous membranes. Cardiovascular: Positive tachycardia no murmurs, rubs, or gallops appreciated. Respiratory: No tachypnea. Lungs clear to auscultation bilaterally. Gastrointestinal: Abdomen soft, nontender, with normoactive bowel sounds. No rebound or guarding. Neurological: Awake. Alert. Nonfocal, nonlateralizing. Skin: No rash. Normal color. No pallor. Musculoskeletal: No pedal edema. Full range of motion extremities. Const Vital Signs: 09/15/23 14:52 09/15/23 15:00 09/15/23 15:01 Temperature 96.5 F L Temperature Source Temporal Pulse Rate 123 H 123 H Respiratory Rate 28 H Respiratory Pattern Tachypnea Blood Pressure 98/34 L Blood Pressure Mean 55 Pulse Ox 100 Oxygen Delivery Method Room Air Room Air 09/15/23 16:00 09/15/23 16:17 Temperature 96.3 F L Temperature Source Pulse Rate 116 H 115 H Respiratory Rate 16 22 H Respiratory Pattern Blood Pressure 100/56 L 100/56 L Blood Pressure Mean 70 70 Pulse Ox 100 100 Oxygen Delivery Method Room Air MDM MDM MDM Narrative Medical decision making narrative: I reviewed the patient's prior records, he has had problems with diabetic ketoacidosis in the past. Comprehensive work-up was pursued. Concern is for diabetic ketoacidosis. He will be bolused normal saline 1 L intravenously. Bedside glucose will be obtained. He has a history of noncompliance, and I do feel that this may be why his sugars are probably elevated again today. EKG was obtained and interpreted by myself independently as sinus tachycardia at 120 bpm without ectopy or acute ST changes. No STEMI. [id number] glucose reviewed and greater than 500. In review of his laboratory work he has a leukocytosis of 23.2, hemoglobin stable at 10.2, hematocrit 38.7, platelet count elevated at 514 which I think is an acute phase reactant. Review of his CMP shows sodium low at 122 with potassium elevated at 6.4 and chloride low at 80. Carbon dioxide is low at 5.0. Glucose is elevated at 1376 with an anion gap of 37. Hence, I am concerned for diabetic ketoacidosis. I reviewed his venous blood gas and his pH is 6.978 and he has a bicarb of 4.0 on his venous blood gas. He will be bolused 2 L and started on insulin drip. Acetone level is large. Given his diabetic ketoacidosis, he does have [address] I discussed the patient with the hospitalist for admission to the ICU. I do feel that his sodium is low secondary to his hyperglycemia. In discussion with Dr. Randolph, given his elevated glucose, and his low bicarb, he will be started on a bicarbonate drip. Disposition is admit in guarded condition. History & Record Review Discussion w/independent historian: Patient Additional record(s) reviewed:: Prior ED visit and Prior labs Lab Data Attestation: I reviewed the patient's lab results. Labs: Laboratory Results - last 24 hr 09/15/23 09/15/23 09/15/23 11:54 15:00 15:21 WBC 23.2 H RBC 5.00 Hgb 10.2 L Hct 38.7 L MCV 77.4 L MCH 20.4 L MCHC 26.4 L RDW Std Deviation 44.8 H RDW Coeff of Rabia 16.4 H Plt Count 514 H MPV 10.8 Immature Gran % (Auto) 0.700 Neut % (Auto) 86.1 H Lymph % (Auto) 7.0 L Yell % (Auto) 5.5 Eos % (Auto) 0.0 Baso % (Auto) 0.7 Absolute Neuts (auto) 20.0 H Absolute Lymphs (auto) 1.62 Nucleated RBC % 0 Sodium 122 L Potassium 6.4 H* Chloride 80 L Carbon Dioxide 5.0 L* Anion Gap 37 H BUN 32 H Creatinine 2.30 H Estim Creat Clear Calc 56.93 Est GFR (MDRD) Af Amer 46 L Est GFR (MDRD) Non-Af 38 L BUN/Creatinine Ratio 13.9 Glucose 1376 H* Calcium 9.2 Total Bilirubin 1.40 H AST 12 L ALT 29 Alkaline Phosphatase 190 H Total Protein 8.3 H Albumin 4.1 Globulin 4.2 Albumin/Globulin Ratio 1.0 Urine Color Yellow Urine Clarity Sl. Cloudy Urine pH 5.0 Ur Specific [place] 1.010 Urine Protein 30 H Urine Glucose (UA) 1000 H Urine Ketones 150 A* Urine Occult Blood 10 H Urine Nitrite Negative Urine Bilirubin Negative Urine Urobilinogen Normal Ur Leukocyte Esterase 100 H Urine RBC 0 SEEN Urine WBC 5-10 SEEN Ur Squamous Epith Cells 0 SEEN Urine Bacteria 0 SEEN Urine Mucus 0 SEEN Urine Yeast 3+ Acetone Level LARGE H POC Glucose > 500 H* ABG Data ABG results: ABG 09/15/23 15:06 Specimen Type MARILYNN Sample Site Not entered O2 % 2.0 VBG pH 6.98 L* VBG pO2 51 H VBG Total CO2 < 5 L VBG O2 Sat (Calc) 65 VBG Base Excess -28 L POC Mix VBG pCO2 Pt Tmp 17.2 L* O2 Delivery Device Cannula Crit Call To/Read Back Yes Blood Gas Notified Whom angie Blood Gas Notified Time 15:09:28 Management Discussion w/another healthcare provider: Hospitalist Critical Care Time Critical Care Time: Yes Critical care time (excluding procedures): 30-74 minutes (32 minutes), Including time spent:, Discussing w/Patient &/or Family/Foot Press Operator, Discussing w/Consultants, Arranging Admission or Transfer and Performing Direct Patient Care at Bedside Discharge Plan Dx/Rx/DC Orders Clinical Impression: Acute kidney injury, Diabetic ketoacidosis, Acute hyperkalemia Disposition Disposition: Acute Care Hospital [facility] Discharge Date/Time: 09/15/23 16:47
[2023-09-15 15:13] LABS: Blood Gas Specimen Type VEN; O2 Delivery Device Cannula; SITE Not entered; VBG BASE EXCESS -28 mmol/L (-1.0-3.5); VBG PO2 51 mmHg (25-40); VBG SO2 65 % (50-70); VBG TCO2 < 5 mmol/L (23-33); VBG pCO2 17.2 mmHg (41-51); VBG pH 6.98 (7.32-7.42)
[2023-09-15] MEDS: 0.9% Normal Saline (1000mL) 1,000 ML 999 ML IV ×2 (15:13→16:33)
[2023-09-15 15:16] LABS: Absolute Lymphocyte Count 1.62 X10^3/uL (0.83-4.51); Basophil# 0.16 X10^3/uL; Basophil% 0.7 % (0-1); Eosinophil# 0.01 X10^3/uL; Hematocrit 38.7 % (40-54); Hemoglobin 10.2 g/dL (13.0-16.5); Lymphocyte # 1.62 X10^3/ul (0.83-4.51); Mean Corp Hgb Conc 26.4 g/dL (32-36); Mean Corpuscular Hgb 20.4 pg (27.0-32.0); Mean Corpuscular Volume 77.4 fL (80-94); Mean Platelet Vol. 10.8 fl (6.2-12.0); Monocyte# 1.28 X10^3/uL; Monocyte% 5.5 % (0-10); NRBC Flagged by Analyzer 0 % (0-5); Neutrophil # 19.97 X10^3/uL (2.7-7.7); Neutrophil % 86.1 % (47-70); Platelet Count 514 K/mm3 (150-450); RBC Distribution Width CV 16.4 % (11.6-14.6); RBC Distribution Width SD 44.8 fl (35.1-43.9); White Blood Count 23.2 K/mm3 (4.4-11.0)
[2023-09-15 15:40] LABS: Bedside Glucose > 500 mg/dL (74-106)
[2023-09-15 15:55] LABS: Bacteria 0 SEEN /hpf (None Seen); Mucous, Urine 0 SEEN /hpf (<or=2+); Red Blood Cells-Urine 0 SEEN /hpf (0-5); Squamous Epithelial Cells - UA 0 SEEN /hpf (0-5)
[2023-09-15 15:59] LABS: Color, Urine Yellow (Yellow); Glucose, Dipstick 1000 mg/dl (Normal); Leukocyte Esterase-Dipstick 100 /ul (Negative); Nitrite-Dipstick Negative (Negative); Occult Blood-Urine 10 /ul (Negative); Protein-Dipstick 30 mg/dl (Negative); Urine Bilirubin Dipstick Negative (Negative); Urine Clarity Sl. Cloudy (Clear); Urine Urobilinogen Normal (Normal)
[2023-09-15 16:01] LABS: Ketone-Dipstick 150 mg/dl (Negative)
[2023-09-15 16:04] LABS: AST(SGOT) 12 U/L (15-37); Alanine Aminotransfer ALT/SGPT 29 U/L (16-61); Albumin, Serum 4.1 g/dL (3.2-5.0); Alkaline Phosphatase 190 U/L (45-117); Anion Gap 37 (5-15); BUN 32 mg/dL (7-18); BUN/Creat Ratio 13.9 RATIO (10-20); Calcium,Total 9.2 mg/dL (8.5-10.1); Chloride 80 mmol/L (98-107); EST Glomerular Filtration Rate 38 mL/min (>60); Est Glom Filt Rate - Afr Amer 46 mL/min (>60); Estimated Creatinine Clearance 56.93 ml/min; Globulin 4.2 g/dL (2.2-4.2); Glucose 1376 mg/dL (74-106); Potassium 6.4 mmol/L (3.5-5.1); Protein, Total 8.3 g/dL (6.4-8.2); Sodium Level 122 mmol/L (136-145)
[2023-09-15 16:10] LABS: White Blood Cells 5-10 SEEN /hpf (0-5)
[2023-09-15 16:11] LABS: Yeast-Urine 3+ /hpf (None Seen)
[2023-09-15] MEDS: Insulin Lispro 100 UNIT in 0.9% Normal Saline (100mL Bag) 99 ML 9.3 UNIT CONT INF (16:13)
--- NOTE | 2023-09-15 16:16 | NURSING ---
DR ELENA FOR DR MILLER
--- NOTE | 2023-09-15 16:25 | NURSING ---
ICU ELENA DKA
--- NOTE | 2023-09-15 16:34 | HP.PCM.HOS_ITS ---
HPI - General General Date of Admission: 09/15/23 Date of Service: 09/15/23 Chief Complaint: n/v HPI Narrative SHIRA STEPHENSON, is a 22 M with history of PE, poorly controlled type 1 diabetes mellitus with multiple episodes of DKA, pericardial infection with effusion s/p pericardial window in 07/2022 who presented to [facility] 09/15/2023 for nausea and vomiting. In the ED he was found to have a glucose of 1300, potassium 6.5, VBG with a pH of 6.98 and his bicarb was found to be 5 with additional RADHA creatinine 2.3, he was started on insulin drip, fluids, bicarb drip and hospitalist called for admission to ICU for DKA. History obtained per report as patient minimally cooperative though will wake up and answer questions reluctantly does so, reportedly vomiting for the past 24 hours leading to his presentation. Patient denies anything else but also reports taking his medicines despite his glucose of 1376. ON LICENSE OF [facility] Medical History Anxiety AP window (aortopulmonary window) Asthma Depression Diabetes mellitus type 1 DVT (deep venous thrombosis) femur surgery GERD (gastroesophageal reflux disease) History of medication noncompliance Hypokalemia Hypokalemia Kidney disease Lower extremity edema Nausea and vomiting Non-smoker Noncompliance Noncompliance with diabetes treatment Nonhealing surgical wound Psychosocial problem Severe protein-calorie malnutrition Sinus tachycardia seen on manager office services Type 1 diabetes Ulcer of leg, chronic Wound of left lower extremity Home Medications insulin lispro 100 unit/mL subcutaneous pen (Humalog KwikPen (U-100) Insulin) See Protocol subcut ACHS DM 07/24/22 [History Last Taken Unknown] blood sugar diagnostic (OneTouch Verio test strips) 02/27/23 [History Last Taken Unknown] flash glucose sensor (FreeStyle Niru 14 Day Sensor kit) 02/27/23 [History Last Taken Unknown] pen needle, diabetic 32 gauge x 5/32 (BD Ultra-Fine Lorin Pen Needle) 02/27/23 [History Last Taken Unknown] potassium chloride 20 mEq tablet,extended release(part/cryst) 40 meq PO DAILY supplement 08/15/23 [History Last Taken Unknown] insulin glargine 100 unit/mL (3 mL) subcutaneous pen (Lantus Solostar U-100 Insulin) 25 unit (0.25 mL) subcut BID DIABETES #30 mL 08/18/23 [Rx Last Taken Unknown] insulin lispro 100 unit/mL subcutaneous pen 15 unit (0.15 mL) subcut TIDAC DIABETES #30 mL 08/18/23 [Rx Last Taken Unknown] rivaroxaban 15 mg (42)-20 mg (9) tablets in a starter pack (Xarelto DVT-PE Treatment 30-Day Starter) See Rx Instructions PO .COMPLEX #51 tabs 08/18/23 [Rx Last Taken Unknown] Allergy/AdvReac Type Severity Reaction Status Date / Time vancomycin Allergy local Verified 09/15/23 14:59 rash/hives to IV site Family History Father Polysubstance overdose Patient father young secondary to OD. Mother Iron deficiency anemia Other Asthma CVA (cerebral vascular accident) Diabetes Hypertension Thyroid disorder Surgical History H/O right knee surgery History of surgery on extremity Hx of knee surgery Social History housing: other details: Lives with his grandmother, aunt and mother. Smoking Status: Never smoker alcohol intake: current alcohol intake frequency: a few times a month substance use type: does not use ROS ROS Narrative Unable to obtain full ROS due to cooperation but patient denies headache, no chest pain or shortness of breath, denies abdominal pain, reports no difficulty with urination or bowels, did endorse taking his medications as prescribed. Vital Signs Vital Signs Vital Signs: 09/15/23 14:52 09/15/23 15:00 09/15/23 15:01 Temperature 96.5 F L Temperature Source Temporal Pulse Rate 123 H 123 H Respiratory Rate 28 H Respiratory Pattern Tachypnea Blood Pressure 98/34 L Blood Pressure Mean 55 Pulse Ox 100 Oxygen Delivery Method Room Air Room Air 09/15/23 16:00 09/15/23 16:17 Temperature 96.3 F L Temperature Source Pulse Rate 116 H 115 H Respiratory Rate 16 22 H Respiratory Pattern Blood Pressure 100/56 L 100/56 L Blood Pressure Mean 70 70 Pulse Ox 100 100 Oxygen Delivery Method Room Air Weight Weight: 93 kg Body Mass Index (BMI) 27.0 Physical Exam Narrative General: Patient wakes up and answers questions however reluctant to do so and will quickly go back to sleep HEENT: Atraumatic, normocephalic Eyes: Anicteric, normal conjunctiva, extraocular movements grossly intact Neck: Supple Respiratory: Tachypneic Cardiovascular: Tachycardic GI: Soft, nontender, nondistended Extremities: No edema Musculoskeletal: Moving all extremities Neuro: No overt focal neurological deficits Skin: No rashes appreciated Psych: Resting comfortably in bed, will wake up and answer some questions but goes back to sleep quickly Results Lab / Micro Data 09/15/23 15:00 09/15/23 15:00 Labs: Laboratory Results - last 24 hr 09/15/23 11:54: Urine Color Yellow, Urine Clarity Sl. Cloudy, Urine pH 5.0, Ur Specific [place] 1.010, Urine Protein 30 H, Urine Glucose (UA) 1000 H, Urine Ketones 150 A*, Urine Occult Blood 10 H, Urine Nitrite Negative, Urine Bilirubin Negative, Urine Urobilinogen Normal, Ur Leukocyte Esterase 100 H, Urine RBC 0 SEEN, Urine WBC 5-10 SEEN, Ur Squamous Epith Cells 0 SEEN, Urine Bacteria 0 SEEN, Urine Mucus 0 SEEN, Urine Yeast 3+ 09/15/23 15:00: WBC 23.2 H, RBC 5.00, Hgb 10.2 L, Hct 38.7 L, MCV 77.4 L, MCH 20.4 L, MCHC 26.4 L, RDW Std Deviation 44.8 H, RDW Coeff of Rabia 16.4 H, Plt Count 514 H, MPV 10.8, Immature Gran % (Auto) 0.700, Neut % (Auto) 86.1 H, Lymph % (Auto) 7.0 L, [place] % (Auto) 5.5, Eos % (Auto) 0.0, Baso % (Auto) 0.7, Absolute Neuts (auto) 20.0 H, Absolute Lymphs (auto) 1.62, Nucleated RBC % 0, Sodium 122 L, Potassium 6.4 H*, Chloride 80 L, Carbon Dioxide 5.0 L*, Anion Gap 37 H, BUN 32 H, Creatinine 2.30 H, Estim Creat Clear Calc 56.93, Est GFR (MDRD) Af Amer 46 L, Est GFR (MDRD) Non-Af 38 L, BUN/Creatinine Ratio 13.9, Glucose 1376 H*, Calcium 9.2, Total Bilirubin 1.40 H, AST 12 L, ALT 29, Alkaline Phosphatase 190 H, Total Protein 8.3 H, Albumin 4.1, Globulin 4.2, Albumin/Globulin Ratio 1.0, Acetone Level LARGE H 09/15/23 15:21: POC Glucose > 500 H* ABG Data ABG results: ABG 09/15/23 15:06 Specimen Type MARILYNN Sample Site Not entered O2 % 2.0 VBG pH 6.98 L* VBG pO2 51 H VBG Total CO2 < 5 L VBG O2 Sat (Calc) 65 VBG Base Excess -28 L POC Mix VBG pCO2 Pt Tmp 17.2 L* O2 Delivery Device Cannula Crit Call To/Read Back Yes Blood Gas Notified Whom angie Blood Gas Notified Time 15:09:28 Assessment & Plan Assessment/Plan (1) Diabetic ketoacidosis: (2) Acute kidney injury: (3) Acute hyperkalemia: (4) Type 1 diabetes: QUALIFIERS: Diabetes mellitus complication status: with hyperglycemia Qualified Code(s): E10.65 - Type 1 diabetes mellitus with hyperglycemia (5) Recurrent pulmonary embolism: PLAN: Plan #DKA in setting of chronic type 1 diabetes which is poorly controlled -Serum glucose in ED 1376, anion gap 37 -Urine ketones 150 -Serum acetone large -Admit to intensive care unit -N.p.o. -Insulin drip started -Aggressive fluid hydration -Glucose checks and DKA protocol -BMP every 4H -Replace electrolytes per protocol -I's and O's -A1c in the a.m. -When serum glucose is <250 mg/dl, change IV fluids to D5%1/2NS at 150 ml/hr and continue insulin drip as per nomogram #High anion gap metabolic acidosis secondary to DKA with compensatory respiratory alkalosis -VBG pH of 6.98, bicarb is 5 and anion gap is 37 -Patient started on fluids, insulin drip, bicarb drip started in ED and patient admitted to ICU -Wakes up and answers questions appropriately then falls back to sleep, patient is tachypneic and suspect this is compensatory for his underlying acidosis -At this time does not require intubation however will monitor closely in the event that he does #RADHA -Secondary to severe dehydration and critical illness -Aggressive fluid rehydration #Hyperkalemia -Address underlying severe hyperglycemia -BMPs every 4, suspect this will correct with insulin and fluids #Recurrent PEs -On Xarelto #DVT ppx: Vani Randolph MD Charges/Coding Visit Charges Inpatient E&M: 60795 Init Hosp L2
[2023-09-15] MEDS: Sodium Bicarbonate 50 MEQ in Dextrose 5%-Water (1000mL Bag) 1,000 ML 150 MEQ IV ×2 (16:42→23:42)
--- NOTE | 2023-09-15 16:45 | ED.RN ---
called Sujata in ICU
[2023-09-15] MEDS: 0.9% Normal Saline (1000mL) 1,000 ML 500 ML IV (18:01)
--- NOTE | 2023-09-15 18:41 | NURSING ---
attempted blood draw several times at 1740 to 1815 per Mary RHOADES and myself. lab called to draw blood.
[2023-09-15 19:34] LABS: Anion Gap 32 (5-15); BUN 33 mg/dL (7-18); BUN/Creat Ratio 16.2 RATIO (10-20); Calcium,Total 8.5 mg/dL (8.5-10.1); Chloride 93 mmol/L (98-107); Creatinine, Serum 2.04 mg/dL (0.70-1.30); EST Glomerular Filtration Rate 43 mL/min (>60); Est Glom Filt Rate - Afr Amer 52 mL/min (>60); Estimated Creatinine Clearance 62.34 ml/min; Glucose 1014 mg/dL (74-106); Sodium Level 131 mmol/L (136-145)
[2023-09-15] MEDS: 0.9% Normal Saline (1000mL) 1,000 ML 325 ML IV ×2 (19:57→23:29)
[2023-09-15] MEDS: Ondansetron 4 MG/2 ML Vial IV (21:12)
[2023-09-15 21:31] LABS: Anion Gap 23 (5-15); BUN 31 mg/dL (7-18); BUN/Creat Ratio 17.5 RATIO (10-20); Calcium,Total 8.7 mg/dL (8.5-10.1); Chloride 102 mmol/L (98-107); Creatinine, Serum 1.77 mg/dL (0.70-1.30); EST Glomerular Filtration Rate 51 mL/min (>60); Est Glom Filt Rate - Afr Amer 62 mL/min (>60); Estimated Creatinine Clearance 71.85 ml/min; Glucose 563 mg/dL (74-106); Potassium 4.1 mmol/L (3.5-5.1); Sodium Level 137 mmol/L (136-145)
[2023-09-15 22:46] LABS: Bedside Glucose 436 mg/dL (74-106)
[2023-09-15 23:52] LABS: Bedside Glucose 403 mg/dL (74-106)
[2023-09-16] VITALS (25 sets, daily range): BP systolic 95–135; BP diastolic 46–67; PULSE 110–124; RESP 13–25; TEMP 36.6–37.1; O2SAT 92–100; BMI 26.5
[2023-09-16] MEDS: 0.9% Normal Saline (1000mL) 1,000 ML 250 ML IV (00:27)
[2023-09-16] MEDS: Phenol/Sodium Phenolate 180ML 5 SPRAY MUCOUS MEM ×2 (00:27→17:19)
[2023-09-16 00:45] LABS: Anion Gap 17 (5-15); BUN 27 mg/dL (7-18); BUN/Creat Ratio 17.3 RATIO (10-20); Calcium,Total 8.3 mg/dL (8.5-10.1); Chloride 107 mmol/L (98-107); Creatinine, Serum 1.56 mg/dL (0.70-1.30); EST Glomerular Filtration Rate 59 mL/min (>60); Est Glom Filt Rate - Afr Amer 72 mL/min (>60); Estimated Creatinine Clearance 81.52 ml/min; Glucose 462 mg/dL (74-106); Potassium 3.9 mmol/L (3.5-5.1); Sodium Level 140 mmol/L (136-145)
[2023-09-16 00:55] LABS: Bedside Glucose > 500 mg/dL (74-106)
[2023-09-16 01:56] LABS: Bedside Glucose 370 mg/dL (74-106)
[2023-09-16 01:56] LABS: Bedside Glucose 384 mg/dL (74-106)
[2023-09-16] MEDS: KCL 20MEQ in 0.45%NS 20 MEQ/1,000 ML IV.SOLN. 125 MEQ IV ×3 (02:38→18:51)
[2023-09-16 02:58] LABS: Bedside Glucose 332 mg/dL (74-106)
[2023-09-16 03:14] LABS: AST(SGOT) 17 U/L (15-37); Alanine Aminotransfer ALT/SGPT 20 U/L (16-61); Alkaline Phosphatase 122 U/L (45-117); Anion Gap 10 (5-15); BUN 21 mg/dL (7-18); BUN/Creat Ratio 15.9 RATIO (10-20); Calcium,Total 7.4 mg/dL (8.5-10.1); Chloride 112 mmol/L (98-107); Creatinine, Serum 1.32 mg/dL (0.70-1.30); EST Glomerular Filtration Rate 72 mL/min (>60); Est Glom Filt Rate - Afr Amer 87 mL/min (>60); Estimated Creatinine Clearance 96.35 ml/min; Globulin 3.1 g/dL (2.2-4.2); Glucose 362 mg/dL (74-106); Potassium 3.4 mmol/L (3.5-5.1); Protein, Total 6.1 g/dL (6.4-8.2); Sodium Level 142 mmol/L (136-145)
[2023-09-16 03:52] LABS: Bedside Glucose 351 mg/dL (74-106)
[2023-09-16] MEDS: Sodium Bicarbonate 50 MEQ in Dextrose 5%-Water (1000mL Bag) 1,000 ML 150 MEQ IV ×3 (06:27→20:33)
[2023-09-16] MEDS: 0.9% Saline Lock 10 ML Syringe IV (06:30)
[2023-09-16 06:51] LABS: Anion Gap 13 (5-15); BUN 20 mg/dL (7-18); BUN/Creat Ratio 14.4 RATIO (10-20); Calcium,Total 7.9 mg/dL (8.5-10.1); Chloride 108 mmol/L (98-107); Creatinine, Serum 1.39 mg/dL (0.70-1.30); EST Glomerular Filtration Rate 68 mL/min (>60); Est Glom Filt Rate - Afr Amer 82 mL/min (>60); Estimated Creatinine Clearance 91.49 ml/min; Glucose 368 mg/dL (74-106); Potassium 3.4 mmol/L (3.5-5.1); Sodium Level 140 mmol/L (136-145)
--- NOTE | 2023-09-16 07:14 | PCM.PN.HOSP ---
Reason for Visit Reason for Visit: Diagnoses Type 1 diabetes mellitus with hyperglycemia (09/15/23) Type 2 diabetes mellitus with ketoacidosis without coma (09/15/23) Hyperkalemia (09/15/23) Other pulmonary embolism without acute cor pulmonale (09/15/23) Acute kidney failure, unspecified (09/15/23) Subjective Subjective Patient is a 22-year-old gentleman with multiple hospitalization admitted with DKA Objective Data Objective Data Vital Signs: Vital Signs Temp Pulse Resp BP Pulse Ox O2 Del Method 98.0 F 120 H 23 H 95/52 L 99 Room Air 09/16/23 03:53 09/16/23 06:00 09/16/23 06:00 09/16/23 06:00 09/16/23 06:00 09/16/23 06:00 Oxygen Delivery Method Room Air Weight: 90.718 kg Body Mass Index (BMI) 26.5 Intake & Output: Intake and Output for Last 24 Hours 09/14/23 09/15/23 09/16/23 23:59 23:59 22:59 Intake Total 5095.39 / 5095.39 2121 / 2121 Output Total 1150 / 1150 650 / 650 Balance 3945.39 / 3945.39 1471 / 1471 Lab / Micro Data 09/15/23 15:00 09/16/23 06:10 Labs: Laboratory Results - last 24 hr 09/15/23 11:54: Urine Color Yellow, Urine Clarity Sl. Cloudy, Urine pH 5.0, Ur Specific [place] 1.010, Urine Protein 30 H, Urine Glucose (UA) 1000 H, Urine Ketones 150 A*, Urine Occult Blood 10 H, Urine Nitrite Negative, Urine Bilirubin Negative, Urine Urobilinogen Normal, Ur Leukocyte Esterase 100 H, Urine RBC 0 SEEN, Urine WBC 5-10 SEEN, Ur Squamous Epith Cells 0 SEEN, Urine Bacteria 0 SEEN, Urine Mucus 0 SEEN, Urine Yeast 3+ 09/15/23 15:00: WBC 23.2 H, RBC 5.00, Hgb 10.2 L, Hct 38.7 L, MCV 77.4 L, MCH 20.4 L, MCHC 26.4 L, RDW Std Deviation 44.8 H, RDW Coeff of Rabia 16.4 H, Plt Count 514 H, MPV 10.8, Immature Gran % (Auto) 0.700, Neut % (Auto) 86.1 H, Lymph % (Auto) 7.0 L, [place] % (Auto) 5.5, Eos % (Auto) 0.0, Baso % (Auto) 0.7, Absolute Neuts (auto) 20.0 H, Absolute Lymphs (auto) 1.62, Nucleated RBC % 0, Sodium 122 L, Potassium 6.4 H*, Chloride 80 L, Carbon Dioxide 5.0 L*, Anion Gap 37 H, BUN 32 H, Creatinine 2.30 H, Estim Creat Clear Calc 56.93, Est GFR (MDRD) Af Amer 46 L, Est GFR (MDRD) Non-Af 38 L, BUN/Creatinine Ratio 13.9, Glucose 1376 H*, Calcium 9.2, Total Bilirubin 1.40 H, AST 12 L, ALT 29, Alkaline Phosphatase 190 H, Total Protein 8.3 H, Albumin 4.1, Globulin 4.2, Albumin/Globulin Ratio 1.0, Acetone Level LARGE H 09/15/23 15:21: POC Glucose > 500 H* 09/15/23 17:08: POC Glucose > 500 H* 09/15/23 18:53: Sodium 131 L, Potassium 5.0, Chloride 93 L, Carbon Dioxide 6.0 L*, Anion Gap 32 H, BUN 33 H, Creatinine 2.04 H, Estim Creat Clear Calc 62.34, Est GFR (MDRD) Af Amer 52 L, Est GFR (MDRD) Non-Af 43 L, BUN/Creatinine Ratio 16.2, Glucose 1014 H*, Calcium 8.5 09/15/23 21:05: Sodium 137, Potassium 4.1, Chloride 102, Carbon Dioxide 12.0 L, Anion Gap 23 H, BUN 31 H, Creatinine 1.77 H, Estim Creat Clear Calc 71.85, Est GFR (MDRD) Af Amer 62, Est GFR (MDRD) Non-Af 51 L, BUN/Creatinine Ratio 17.5, Glucose 563 H*, Calcium 8.7 09/15/23 22:27: POC Glucose 436 H 09/15/23 22:59: Sodium 140, Potassium 3.9, Chloride 107, Carbon Dioxide 16.0 L, Anion Gap 17 H, BUN 27 H, Creatinine 1.56 H, Estim Creat Clear Calc 81.52, Est GFR (MDRD) Af Amer 72, Est GFR (MDRD) Non-Af 59 L, BUN/Creatinine Ratio 17.3, Glucose 462 H*, Calcium 8.3 L 09/15/23 23:33: POC Glucose 403 H 09/16/23 00:33: POC Glucose 384 H 09/16/23 01:37 EST: POC Glucose 370 H 09/16/23 02:35: POC Glucose 332 H 09/16/23 02:40: Sodium 142, Potassium 3.4 L, Chloride 112 H, Carbon Dioxide 20.0 L, Anion Gap 10, BUN 21 H, Creatinine 1.32 H, Estim Creat Clear Calc 96.35, Est GFR (MDRD) Af Amer 87, Est GFR (MDRD) Non-Af 72, BUN/Creatinine Ratio 15.9, Glucose 362 H, Calcium 7.4 L, Total Bilirubin 0.60, AST 17, ALT 20, Alkaline Phosphatase 122 H, Total Protein 6.1 L, Albumin 3.0 L, Globulin 3.1, Albumin/Globulin Ratio 1.0 09/16/23 03:31: POC Glucose 351 H 09/16/23 06:10: Sodium 140, Potassium 3.4 L, Chloride 108 H, Carbon Dioxide 19.0 L, Anion Gap 13, BUN 20 H, Creatinine 1.39 H, Estim Creat Clear Calc 91.49, Est GFR (MDRD) Af Amer 82, Est GFR (MDRD) Non-Af 68, BUN/Creatinine Ratio 14.4, Glucose 368 H, Calcium 7.9 L ABG Data ABG results: ABG 09/15/23 15:06 Specimen Type MARILYNN Sample Site Not entered O2 % 2.0 VBG pH 6.98 L* VBG pO2 51 H VBG Total CO2 < 5 L VBG O2 Sat (Calc) 65 VBG Base Excess -28 L POC Mix VBG pCO2 Pt Tmp 17.2 L* O2 Delivery Device Cannula Crit Call To/Read Back Yes Blood Gas Notified Whom angie Blood Gas Notified Time 15:09:28 Physical Exam Narrative GENERAL: Sleeping but easily arousable HEENT: Atraumatic; normocephalic EYES; Anicteric, Normal Conjunctiva NECK; supple, normal thyroid, RESPIRATORY: Diminished to auscultation CARDIOVASCULAR: Regular S1 S2, GI: soft, normoactive bowel sounds, : No Renal angle tenderness; EXTREMITIES: No edema, no clubbing, MUSCULOSKELETAL: no muscle wasting NEURO: Awake; no lateralizing signs. SKIN: No Rash PSYCH; Flat affect Assessment & Plan Assessment/Plan (1) Diabetic ketoacidosis: QUALIFIERS: Diabetes mellitus type: type 1 Diabetes mellitus complication detail: without coma Qualified Code(s): E10.10 - Type 1 diabetes mellitus with ketoacidosis without coma PLAN: Plan Patient is a 22-year-old gentleman with multiple hospitalization admitted with DKA 1. Diabetes mellitus type 1 presented with DKA ? Patient admitted to the intensive care unit management IV fluid resuscitation, every 4 BMPs, correction of electrolytes 2. RADHA ? Secondary to severe dehydration from DKA patient being managed with IV fluid with subsequent monitoring of electrolyte 3. Hyperkalemia ? Corrected with treatment of patient's hyperglycemia 4. Hypokalemia ? Corrected per protocol 5. Recurrent PEs ? Patient on Xarelto 6. Anemia - Secondary to chronic disorder monitoring H&H and transfuse if patient becomes symptomatic or hemoglobin falls below 7 7. DVT prophylaxis ? Patient is on Xarelto Time spent in the patient's overall evaluation,decision-making process, review of diagnostic data, adjustment of management, discussion with other providers, nursing nursing and ancillary staff involved in patient's care documentation, 52 Minutes Charges/Coding Visit Charges Inpatient E&M: [id number] [facility] L3
[2023-09-16 07:50] LABS: Bedside Glucose 363 mg/dL (74-106)
[2023-09-16 07:50] LABS: Bedside Glucose 299 mg/dL (74-106)
[2023-09-16 07:50] LABS: Bedside Glucose 360 mg/dL (74-106)
[2023-09-16 08:46] LABS: Bedside Glucose 285 mg/dL (74-106)
[2023-09-16 08:46] LABS: Bedside Glucose 287 mg/dL (74-106)
[2023-09-16 10:55] LABS: Bedside Glucose 235 mg/dL (74-106)
[2023-09-16 10:55] LABS: Bedside Glucose 245 mg/dL (74-106)
[2023-09-16 12:04] LABS: Bedside Glucose 233 mg/dL (74-106)
[2023-09-16] MEDS: Ondansetron 4 MG/2 ML Vial IV (13:07)
[2023-09-16 13:20] LABS: Bedside Glucose 370 mg/dL (74-106)
[2023-09-16 13:40] LABS: Anion Gap 7 (5-15); BUN 15 mg/dL (7-18); BUN/Creat Ratio 13.3 RATIO (10-20); Calcium,Total 8.2 mg/dL (8.5-10.1); Chloride 108 mmol/L (98-107); Creatinine, Serum 1.13 mg/dL (0.70-1.30); EST Glomerular Filtration Rate 86 mL/min (>60); Est Glom Filt Rate - Afr Amer 104 mL/min (>60); Estimated Creatinine Clearance 112.55 ml/min; Glucose 248 mg/dL (74-106); Potassium 3.3 mmol/L (3.5-5.1); Sodium Level 140 mmol/L (136-145)
[2023-09-16] MEDS: Insulin Glargine-YFGN 100 UNIT/ML Pen 25 UNIT SC ×2 (13:42→20:33)
[2023-09-16] MEDS: Potassium Chloride Oral Tablet 20 MEQ 40 MEQ PO (13:42)
[2023-09-16 17:06] LABS: Bedside Glucose 220 mg/dL (74-106)
[2023-09-16 17:08] LABS: Bedside Glucose 252 mg/dL (74-106)
[2023-09-16] MEDS: Insulin Lispro 100 UNIT/ML INSULN.PEN SC ×2 (17:08→20:34)
[2023-09-16] MEDS: Rivaroxaban 20 MG Tablet PO (17:09)
[2023-09-16] MEDS: Insulin Lispro 100 UNIT/ML INSULN.PEN 15 UNIT SC (17:09)
[2023-09-16 17:33] LABS: Absolute Lymphocyte Count 0.82 X10^3/uL (0.83-4.51); Absolute Neutrophil Count 6.2 X10^3/uL (2.0-7.7); Basophil# 0.01 X10^3/uL; Basophil% 0.1 % (0-1); Eosinophil# 0.04 X10^3/uL; Eosinophils% 0.5 % (0-5); Hemoglobin 8.1 g/dL (13.0-16.5); Lymphocyte # 0.82 X10^3/ul (0.83-4.51); Lymphocyte % 10.4 % (19-41); Mean Corpuscular Hgb 20.3 pg (27.0-32.0); Mean Corpuscular Volume 67.7 fL (80-94); Mean Platelet Vol. 9.4 fl (6.2-12.0); Monocyte# 0.79 X10^3/uL; NRBC Flagged by Analyzer 0 % (0-5); Neutrophil # 6.21 X10^3/uL (2.7-7.7); Neutrophil % 78.5 % (47-70); Platelet Count 303 K/mm3 (150-450); RBC Distribution Width CV 17.3 % (11.6-14.6); RBC Distribution Width SD 41.1 fl (35.1-43.9); Red Blood Count 3.99 M/mm3 (4.6-6.2); White Blood Count 7.9 K/mm3 (4.4-11.0)
[2023-09-16 21:05] LABS: Bedside Glucose 163 mg/dL (74-106)
[2023-09-17] VITALS (17 sets, daily range): BP systolic 96–139; BP diastolic 48–77; PULSE 87–129; RESP 14–39; TEMP 36.8–37.4; O2SAT 91–98; BMI 27.0
[2023-09-17] MEDS: 0.9% Saline Lock 10 ML Syringe IV (03:07)
[2023-09-17] MEDS: Sodium Bicarbonate 50 MEQ in Dextrose 5%-Water (1000mL Bag) 1,000 ML 150 MEQ IV (03:07)
[2023-09-17] MEDS: KCL 20MEQ in 0.45%NS 20 MEQ/1,000 ML IV.SOLN. 125 MEQ IV (03:07)
[2023-09-17 03:21] LABS: Absolute Lymphocyte Count 1.08 X10^3/uL (0.83-4.51); Absolute Neutrophil Count 4.3 X10^3/uL (2.0-7.7); Basophil# 0.03 X10^3/uL; Basophil% 0.5 % (0-1); Eosinophil# 0.05 X10^3/uL; Eosinophils% 0.8 % (0-5); Hematocrit 27.1 % (40-54); Hemoglobin 8.1 g/dL (13.0-16.5); Lymphocyte # 1.08 X10^3/ul (0.83-4.51); Lymphocyte % 17.7 % (19-41); Mean Corp Hgb Conc 29.9 g/dL (32-36); Mean Corpuscular Hgb 20.4 pg (27.0-32.0); Mean Corpuscular Volume 68.3 fL (80-94); Mean Platelet Vol. 9.4 fl (6.2-12.0); Monocyte# 0.61 X10^3/uL; NRBC Flagged by Analyzer 0 % (0-5); Neutrophil % 70.7 % (47-70); Platelet Count 280 K/mm3 (150-450); RBC Distribution Width CV 17.2 % (11.6-14.6); RBC Distribution Width SD 41.4 fl (35.1-43.9); Red Blood Count 3.97 M/mm3 (4.6-6.2); White Blood Count 6.1 K/mm3 (4.4-11.0)
[2023-09-17 04:44] LABS: ALB/GLOB Ratio 0.7 RATIO (0.9-2.4); AST(SGOT) 12 U/L (15-37); Alanine Aminotransfer ALT/SGPT 15 U/L (16-61); Albumin, Serum 2.5 g/dL (3.2-5.0); Alkaline Phosphatase 108 U/L (45-117); Anion Gap 5 (5-15); BUN 7 mg/dL (7-18); BUN/Creat Ratio 9.1 RATIO (10-20); Bilirubin, Direct 0.13 mg/dL (0.00-0.30); Calcium,Total 7.7 mg/dL (8.5-10.1); Chloride 109 mmol/L (98-107); Creatinine, Serum 0.77 mg/dL (0.70-1.30); EST Glomerular Filtration Rate 133 mL/min (>60); Est Glom Filt Rate - Afr Amer 161 mL/min (>60); Estimated Creatinine Clearance 165.17 ml/min; Globulin 3.4 g/dL (2.2-4.2); Glucose 99 mg/dL (74-106); Magnesium 1.9 mg/dL (1.6-2.6); Potassium 2.9 mmol/L (3.5-5.1); Protein, Total 5.9 g/dL (6.4-8.2); Sodium Level 143 mmol/L (136-145)
[2023-09-17] MEDS: Potassium Chloride Oral Tablet 20 MEQ 40 MEQ PO ×2 (04:56→08:12)
[2023-09-17 06:31] LABS: VBG Bicarbonate 4 mmol/L (22-26)
[2023-09-17] MEDS: Phenol/Sodium Phenolate 180ML 5 SPRAY MUCOUS MEM (08:10)
[2023-09-17] MEDS: Magnesium Sulfate 4gm/100mL 4 GM/100 ML IV.SOLN. IV (08:23)
[2023-09-17] MEDS: Potassium Chloride 10mEq/100mL 10 MEQ/100 ML IV.SOLN. 100 MEQ IV BOLUS ×2 (08:23→09:53)
[2023-09-17 08:30] LABS: Bedside Glucose 196 mg/dL (74-106)
[2023-09-17] MEDS: Insulin Glargine-YFGN 100 UNIT/ML Pen 25 UNIT SC (08:36)
[2023-09-17] MEDS: Insulin Lispro 100 UNIT/ML INSULN.PEN SC ×2 (08:37→21:08)
[2023-09-17] MEDS: Insulin Lispro 100 UNIT/ML INSULN.PEN 15 UNIT SC (08:37)
--- NOTE | 2023-09-17 10:33 | ST.MBS ---
Modified Barium Swallow Patient Information Study Date: 09/17/23 Study Time: 10:30 Direct Billable Minutes: 120 Total Minutes procedure & reportin Diagnosis: Severe malnutrition Referring Physician: Will Mason Reason for Referral: Objectively assess swallow function, assess risk for aspiration, and determine recommendations for least restrictive diet textures and compensatory strategies to improve safety of swallow. Medical History: Romeo aCrlton is a 22 M with PMH of PE, poorly controlled type 1 DM with multiple episodes of DKA , pericardial infection with effusion s/p pericardial window in 2021, asthma, DVT, GERD, severe protein calorie malnutrition. He presented to [facility] ED 2022 for nausea and vomiting. He was admitted to ICU for DKA. Due to coughing with food and drink, he was referred for ST consult. Due to coughing during BSE on regular textures and thin liquids, the patient was recommended for MBSS to assess AQUATIC PHYSIOTHERAPIST concern's for aspiration. RN, Brenton, monitoring patient during the study due to current ICU status. Current Diet Ordered: Regular textures / Thin liquids Dentition: Natural Teeth Mental Status: WNL Respiratory Status: Oxygenating on Room Air (low 90s) Penetration-Aspiration Scale Penetration-Aspiration Scale: OBJECTIVE ASSESSMENT OF SWALLOW FUNCTION (QUANTITATIVE ? PER TRIAL): PENETRATION / ASPIRATION SCALE (ARROYO): 1 = does not enter airway 2 = enters airway/above vocal folds/ejected 3 = enters airway/above vocal folds/not ejected 4 = enters airway/contacts vocal folds/ejected 5 = enters airway/contacts vocal folds/not ejected 6 = enters airway/below vocal folds/ejected 7 = enters airway/below vocal folds/not ejected despite effort 8 = enters airway/below vocal folds/no effort VIDEOFLOROSCOPIC SCALE SCORE (ARROYO): Grade I = aspiration of material that has penetrated into the laryngeal vestibule, intact cough reflex Grade II = aspiration < 10 % of the bolus, intact cough reflex Grade III = aspiration of < 10 % of the bolus, reduced cough reflex or aspiration of > 10 % of the bolus, intact cough reflex Grade IV = aspiration of > 10 % of the bolus, reduced cough reflex Penetration-Aspiration Scale Score Thin Liquid via teaspoon: Result: 7= enters airways/below vocal folds/not ejected despite effort Thin Liquid via teaspoon Trial 2: Result: 8= enters airway/below vocal folds/no effort Thin Liquid via teaspoon Effortful swallow: Result: 8= enters airway/below vocal folds/no effort [place] Thick Liquid via teaspoon: Result: 3= enters airways/above vocal folds/not ejected Comment: SILENT post prandial aspiration likely of previous trial observed during this trial. Esophageal screen - complete clearance. Honey Thick Liquid via teaspoon: Result: 2= enter airway/above vocal folds/ejected Pudding via teaspoon: Result: 8= enters airway/below vocal folds/no effort Comment: Esophageal screen - complete clearance. Thin Liquid via teaspoon Chin tuck: Result: 5= enters airways/contacts vocal folds/not ejected Thin Liquid Left head turn: Result: 5= enters airways/contacts vocal folds/not ejected Thin Liquid Right head turn: Result: 5= enters airways/contacts vocal folds/not ejected Thin Liquid Supraglottic swallow: Result: 7= enters airways/below vocal folds/not ejected despite effort Comment: AQUATIC PHYSIOTHERAPIST cued the patient to spit out the trial prior to him swallowing as he experienced pre-prandial aspiration of thin liquids. Oral Phase Labial Seal: No Labial Escape Tongue Control During Bolus Hold: Posterior escape of less than half of bolus Bolus Transport/Lingual Motion: Delayed initiation of tongue motion Oral Residue: Residue collection on oral structures Pharyngeal Phase Initiation of Pharyngeal Swallow: Bolus head in pyriforms Soft Palate Elevation: No bolus between soft palate and pharyngeal wall Laryngeal Elevation: Partial superior movement thyroid cart/partial apprx aryt-epig petiole Anterior Hyoid Excursion: Partial anterior movement Epiglottic Movement: Partial inversion Laryngeal Vestibule Closure at Height of Swallow: Incomplete; narrow column of air/contrast in laryngeal vestibule Pharyngeal Stripping Wave: Present - diminished Pharyngoesophageal Segment Opening: Parital distension and partial duration; parital obstruction of flow Tongue Base Retraction: Wide column of contrast between tongue base & post. pharyngeal wall Pharyngeal Residue: Collection of residue within or on pharyngeal structures Esophageal Phase Esophageal Clearance: Complete clearance Diagnosis/Impression Diagnosis: Severe oropharyngeal phase dysphagia R13.12 Impression: The oral phase is primarily marked by... -Decreased bolus control with <1/2 of the bolus spilling posteriorly prior to swallow onset. Thin via cup with cued supraglottic swallow spilled to the airway prior to swallow onset resulting in aspiration before the swallow. -Delayed tongue motion, -Mild oral residue of pudding, which the patient automatically cleared with a second swallow. -Did not assess solids due to concern for high choking risk after SILENT aspiration of pudding. The pharyngeal phase is primarily marked by... -Decreased airway closure during the swallow due to decreased anterior hyoid excursion, partial epiglottic inversion, and decreased laryngeal elevation. -Moderately decreased tongue base retraction, UES opening/duration, pharyngeal stripping wave, resulting in mild-moderate pharyngeal residues after the swallow. Patient had various residues pool in the pyriforms, which increased risk for aspiration as these residues were seen spilling to the laryngeal vestibule after the swallow. -SILENT aspiration of thin by tsp, thin by tsp with effortful swallow, nectar by tsp (after the swallow spilling from the pyriforms), pudding by tsp, and thin by cup with attempted supraglottic swallow (before the swallow). Recommendations Diet: NPO Recommend Repeat Modified Barium Swallow: Yes (Repeat MBSS in 1-2 weeks after implementation of intensive oropharyngeal exercise program.) Need for Skilled Speech Therapy Services: Yes Comment: AQUATIC PHYSIOTHERAPIST spoke with Dr. Randolph regarding her thoughts on etiology and prognosis of current dysphagia as AQUATIC PHYSIOTHERAPIST is concerned patient may be experiencing autonomic neuropathy secondary to hyperglycemia from DM type I. If so, AQUATIC PHYSIOTHERAPIST is concerned the patient's swallow function may have poor prognosis. GI is being consulted and AQUATIC PHYSIOTHERAPIST will repeat MBSS if the patient undergoes dilation of upper esophageal sphincter to re-assess appropriateness for po intake. Implementation of oropharyngeal exercise program to be complete 3-5X daily, X10-20 reps of each exercise (Effortful swallow, Corina, Ryan). Will recommend ice chips after thorough oral care, monitoring SpO2, for patient comfort and to provide opportunities for increased swallows throughout the patient's day. Recommended Referrals: GI Consult (Tight upper esophageal sphincter. AQUATIC PHYSIOTHERAPIST spoke with Dr. Randolph who will consult GI to see if they feel they can help prior consideration of tube feeding.) Education Completed: 1. Described result of evaluation. and 2. Pt understands evaluation & agrees with goals and treatment plan. Status Active ST Patient: Active Contact Information [facility] Speech Therapy:: Melissa Whiteside M.A. [facility]-AQUATIC PHYSIOTHERAPIST Speech-Language Pathologist [facility] [address] [place] [address] [email or web address] [phone]
[2023-09-17 11:42] LABS: Bedside Glucose 75 mg/dL (74-106)
[2023-09-17] MEDS: Dextrose 50%-Water 25 GM/50 ML DISP.SYRIN IV (11:43)
--- NOTE | 2023-09-17 13:20 | PN.HOSP_ITS ---
Reason for Visit Reason for Visit: Diagnoses Type 1 diabetes mellitus with ketoacidosis without coma (09/15/23) Type 1 diabetes mellitus with hyperglycemia (09/15/23) Type 2 diabetes mellitus with ketoacidosis without coma (09/15/23) Hyperkalemia (09/15/23) Other pulmonary embolism without acute cor pulmonale (09/15/23) Acute kidney failure, unspecified (09/15/23) Subjective Subjective Patient feeling better than he did on admission however still feeling tired. Failed swallow eval reports throat has been a little bit sore for the past day o r so. Patient had no other acute complaints Objective Data Objective Data Vital Signs: Vital Signs Temp Pulse Resp BP Pulse Ox O2 Del Method 99.3 F H 115 H 14 116/68 94 Room Air 09/17/23 11:15 09/17/23 11:15 09/17/23 11:15 09/17/23 11:15 09/17/23 11:15 09/17/23 11:15 Oxygen Delivery Method Room Air Weight: 92.476 kg Body Mass Index (BMI) 27.0 Intake & Output: Intake and Output for Last 24 Hours 09/16/23 09/16/23 09/17/23 00:59 23:59 23:59 Intake Total 3166.67 / 3166.67 Output Total 2049 / 2049 Balance 1116.67 / 1116.67 Medical Nutrition Assessment Dietitian: Malnutrition Criteria Met Start: 09/16/23 09:26 Freq: Status: Active Protocol: Document 09/16/23 09:26 SLA (Rec: 09/16/23 09:26 SLA Desktop) Nutrition Malnutrition Evidence of Malnutrition Exists Yes Malnutrition (severe): Acute Illness/Injury Evidenced By Suboptimal Energy Intake ( Severe),Weight Loss (Severe) Clinical Problem Altered Nutrient-Related Laboratory Values Etiology related to poorly controlled diabetes and hx of noncompliance Signs/Symptoms as evidenced by gluc 368 (on adm gluc = 1376) Status Active Problem Acute Disease or Injury Related Malnutrition Etiology related to DKA w/ nausea and vomiting Signs/Symptoms as evidenced by < 75% of est nutritional needs in past 1-2 days and 5.9% wt loss in < 1 month Status Active Problem Recommendation Dietitian Recommendations/Changes As medically able, rec ZACH to [address] controlled/ Consistent CHO diet Rec glucerna shake w/ medpass pending po intake as established. Lab / Micro Data 09/17/23 03:09 09/17/23 03:09 Labs: Laboratory Results - last 24 hr 09/16/23 01:47 EST: POC Glucose 370 H 09/16/23 12:48: POC Glucose 220 H 09/16/23 13:15: Sodium 140, Potassium 3.3 L, Chloride 108 H, Carbon Dioxide 25.0, Anion Gap 7, BUN 15, Creatinine 1.13, Estim Creat Clear Calc 112.55, Est GFR (MDRD) Af Amer 104, Est GFR (MDRD) Non-Af 86, BUN/Creatinine Ratio 13.3, Glucose 248 H, Calcium 8.2 L 09/16/23 16:47: POC Glucose 252 H 09/16/23 17:15: WBC 7.9, RBC 3.99 L, Hgb 8.1 L, Hct 27.0 L, MCV 67.7 L D, MCH 20.3 L, MCHC 30.0 L D, RDW Std Deviation 41.1, RDW Coeff of Rabia 17.3 H, Plt Count 303, MPV 9.4, Immature Gran % (Auto) 0.500, Neut % (Auto) 78.5 H, Lymph % (Auto) 10.4 L, [place] % (Auto) 10.0, Eos % (Auto) 0.5, Baso % (Auto) 0.1, Absolute Neuts (auto) 6.2, Absolute Lymphs (auto) 0.82 L, Nucleated RBC % 0 09/16/23 20:33: POC Glucose 163 H 09/17/23 03:09: WBC 6.1, RBC 3.97 L, Hgb 8.1 L, Hct 27.1 L, MCV 68.3 L, MCH 20.4 L, MCHC 29.9 L, RDW Std Deviation 41.4, RDW Coeff of Rabia 17.2 H, Plt Count 280, MPV 9.4, Immature Gran % (Auto) 0.300, Neut % (Auto) 70.7 H, Lymph % (Auto) 17.7 L, [place] % (Auto) 10.0, Eos % (Auto) 0.8, Baso % (Auto) 0.5, Absolute Neuts (auto) 4.3, Absolute Lymphs (auto) 1.08, Nucleated RBC % 0, Sodium 143, Potassium 2.9 L, Chloride 109 H, Carbon Dioxide 29.0, Anion Gap 5, BUN 7, C reatinine 0.77, Estim Creat Clear Calc 165.17, Est GFR (MDRD) Af Amer 161, Est GFR (MDRD) Non-Af 133, BUN/Creatinine Ratio 9.1 L, Glucose 99, Calcium 7.7 L, Magnesium 1.9, Total Bilirubin 0.50, Direct Bilirubin 0.13, AST 12 L, ALT 15 L, Alkaline Phosphatase 108, Total Protein 5.9 L, Albumin 2.5 L, Globulin 3.4, Albumin/Globulin Ratio 0.7 L 09/17/23 08:09: POC Glucose 196 H 09/17/23 11:18: POC Glucose 75 ABG Data ABG results: ABG 09/15/23 15:06 VBG HCO3 4 L Blood Gas Notified Whom Dr. Meeks Physical Exam Narrative General: Alert, oriented, no apparent distress HEENT: Atraumatic, normocephalic, no lesions or plaques appreciated in mouth, no external swelling or abnormalities appreciated on palpation of neck Eyes: Anicteric, normal conjunctiva, extraocular movements grossly intact Neck: Supple Respiratory: Clear to auscultation bilaterally, normal respiratory effort Cardiovascular: Regular rate and rhythm GI: Soft, nontender, nondistended Extremities: No edema Musculoskeletal: Moving all extremities Neuro: No overt focal neurological deficits Skin: No rashes appreciated Psych: Cooperative Assessment & Plan Assessment/Plan (1) Diabetic ketoacidosis: QUALIFIERS: Diabetes mellitus type: type 1 Diabetes mellitus complication detail: without coma Qualified Code(s): E10.10 - Type 1 diabetes mellitus with ketoacidosis without coma PLAN: Plan Patient is a 22-year-old gentleman with multiple hospitalization admitted with DKA #Inability to swallow w/ aspiration -09/17: Patient did not pass swallow and was aspirating on even thickened liquids. Query if there could be component of his chronically uncontrolled diabetes leading to abnormalities in peristalsis in his swallowing. Discussed with speech and it did appear he has somewhat tight upper esophagus though may not be culprit it was recommended GI consult and evaluation for possible dilation or other intervention and if this is not helpful or not recommended patient may need PEG tube placement for nutrition moving forward if there does not seem to be reversible cause. We will continue work with speech at this time. Gentle hydration and patient is n.p.o. #Diabetes mellitus type 1 presented with DKA ? Patient admitted to the intensive care unit management IV fluid resuscitation, every 4 BMPs, correction of electrolytes -09/17: Gap closed, given n.p.o. status insulin has been adjusted, not using any insulin at all may trigger patient to go back into DKA again however left to be very careful to avoid hypoglycemia #RADHA?resolved ? Secondary to severe dehydration from DKA patient being managed with IV fluid with subsequent monitoring of electrolyte -09/17: Resolved # Hypokalemia ? Corrected per protocol -09/17: Continue replace per protocol, potassium two-point in the same, will rep eat to assess for further needs #Recurrent PEs ? Patient on Xarelto -09/17: Transition to full dose Lovenox due to patient not swallowing #Anemia - Secondary to chronic disorder monitoring H&H and transfuse if patient becomes symptomatic or hemoglobin falls below 7 7. DVT prophylaxis ? Patient is on full dose lovenox Time spent in the patient's overall evaluation,decision-making process, review of diagnostic data, adjustment of management, discussion with other providers, nursing nursing and ancillary staff involved in patient's care documentation, 40 Minutes Charges/Coding Visit Charges Inpatient E&M: 62992 Subs Hosp L2
--- NOTE | 2023-09-17 15:01 | CON.PCM.GI_ITS ---
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 He was found to have severe metabolic acidosis secondary to DKA. His blood sugar was determined to be 1300. He was admitted to the ICU for monitoring and volume resuscitation along with treatment of DKA. Due to coughing with food and drink, he was referred for ST consult. I was consulted to see the patient due to severe esophageal stricture that was seen during his modified video swallow e valuation. [facility], [facility] Medical History Anxiety AP window (aortopulmonary window) Asthma Depression Diabetes mellitus type 1 DVT (deep venous thrombosis) femur surgery GERD (gastroesophageal reflux disease) History of medication noncompliance Hypokalemia Hypokalemia Kidney disease Lower extremity edema Nausea and vomiting Non-smoker Noncompliance Noncompliance with diabetes treatment Nonhealing surgical wound Psychosocial problem Severe protein-calorie malnutrition Sinus tachycardia seen on product specialist Type 1 diabetes Ulcer of leg, chronic Wound of left lower extremity Home Medications insulin lispro 100 unit/mL subcutaneous pen (Humalog KwikPen (U-100) Insulin) See Protocol subcut ACHS DM 07/24/22 [History Last Taken Unknown] blood sugar diagnostic (OneTouch Verio test strips) 02/27/23 [History Last Taken Unknown] flash glucose sensor (FreeStyle Niru 14 Day Sensor kit) 02/27/23 [History Last Taken Unknown] pen needle, diabetic 32 gauge x 5/32 (BD Ultra-Fine Lorin Pen Needle) 02/27/23 [History Last Taken Unknown] potassium chloride 20 mEq tablet,extended release(part/cryst) 40 meq PO DAILY supplement 08/15/23 [History Last Taken Unknown] insulin glargine 100 unit/mL (3 mL) subcutaneous pen (Lantus Solostar U-100 Insulin) 25 unit (0.25 mL) subcut BID DIABETES #30 mL 08/18/23 [Rx Last Taken Unknown] insulin lispro 100 unit/mL subcutaneous pen 15 unit (0.15 mL) subcut TIDAC DIABETES #30 mL 08/18/23 [Rx Last Taken Unknown] rivaroxaban 20 mg tablet (Xarelto) 20 mg PO DINNER #30 tabs 09/17/23 [Rx Last Taken Unknown] Allergy/AdvReac Type Severity Reaction Status Date / Time vancomycin Allergy local Verified 09/15/23 14:59 rash/hives to IV site Family History Father Polysubstance overdose Patient father young secondary to OD. Mother Iron deficiency anemia Other Asthma CVA (cerebral vascular accident) Diabetes Hypertension Thyroid disorder Surgical History H/O right knee surgery History of surgery on extremity Hx of knee surgery Social History housing: other details: Lives with his grandmother, aunt and mother. Smoking Status: Never smoker alcohol intake: current alcohol intake frequency: a few times a month substance use type: does not use ROS ROS Narrative Unable to obtain full ROS due to cooperation but patient denies headache, no chest pain or shortness of breath, denies abdominal pain, reports no difficulty with urination or bowels, did endorse taking his medications as prescribed. Constitutional Constitutional: Denies change in weight, chills, fatigue, fever(s) or weakness Eyes Eyes: Denies change in vision Cardiovascular Cardiovascular: Reports dyspnea on exertion, lightheadedness and rapid heart rate; Denies chest pain, edema, orthopnea, palpitations or syncope Respiratory/Chest Respiratory/Chest: Denies cough, shortness of breath at rest or wheezing Gastrointestinal Gastrointestinal: Denies abdominal pain, nausea or vomiting Genitourinary Genitourinary: Denies dysuria Musculoskeletal Musculoskeletal: Denies back pain Neurologic Neurologic: Denies confusion, dizziness, focal weakness, headache(s) or numbness Endocrine Endocrinology: Reports polydipsia; Denies polyuria Physical Exam Narrative General: Alert, oriented, no apparent distress HEENT: Atraumatic, normocephalic Eyes: extraocular movements grossly intact Neck: Supple Respiratory: normal respiratory effort Cardiovascular: no edema appreciated GI: nondistended Extremities: Moving all extremities Neuro: No overt focal neurological deficits Psych: Cooperative Medical Records Data Medical Nutrition Assessment Dietitian: Malnutrition Criteria Met Start: 09/16/23 09:26 Freq: Status: Active Protocol: Document 09/18/23 09:30 AG (Rec: 09/18/23 09:30 AG [id number]) Nutrition Malnutrition Evidence of Malnutrition Exists Yes Malnutrition (severe): Acute Illness/Injury Evidenced By Suboptimal Energy Intake ( Severe),Weight Loss (Severe) Intake Problem Inadequate Oral Intake Etiology related to silent aspiration Signs/Symptoms as evidenced by NPO status Status Active Problem Clinical Problem Altered Nutrient-Related Laboratory Values Etiology related to poorly controlled diabetes Signs/Symptoms as evidenced by admission glucose 1376 Status Active Problem Acute Disease or Injury Related Malnutrition Etiology severe, acute malnutrition related to inadequate energy intake d/t nausea, emesis, DKA Signs/Symptoms as evidenced by PO intake meeting <50% of estimated energy needs x 5 days, unintentional wt loss of 1.9kg /2% < 1 week Status Active Problem Recommendation Dietitian Recommendations/Changes recommend advance diet as tolerated to CHO controlled- texture/consistency per SALESPERSON FLOOR COVERINGS; if unable to advance PO diet, recommend enteral nutrition support- consult RDN for additional recommendations as indicated Lab / Micro Data 09/18/23 05:45 09/18/23 05:45 Labs: Laboratory Results - last 24 hr 09/17/23 14:55: POC Glucose 138 H 09/17/23 16:50: Sodium 141, Potassium 3.5, Chloride 108 H, Carbon Dioxide 30.0, Anion Gap 3 L, BUN 5 L, Creatinine 0.59 L, Estim Creat Clear Calc 215.56, Est GFR (MDRD) Af Amer 220, Est GFR (MDRD) Non-Af 182, BUN/Creatinine Ratio 8.5 L, Glucose 208 H, Calcium 8.0 L 09/17/23 21:06: POC Glucose 241 H 09/18/23 05:45: WBC 4.2 L, RBC 4.33 L, Hgb 8.8 L, Hct 30.5 L, MCV 70.4 L, MCH 20.3 L, MCHC 28.9 L, RDW Std Deviation 42.4, RDW Coeff of Rabia 16.8 H, Plt Count 272, MPV 9.3, Immature Gran % (Auto) 0.200, Neut % (Auto) 61.5, Lymph % (Auto) 25.5, [place] % (Auto) 9.0, Eos % (Auto) 3.1, Baso % (Auto) 0.7, Absolute Neuts (auto) 2.6, Absolute Lymphs (auto) 1.08, Nucleated RBC % 0, Sodium 141, Potassium 3.5, Chloride 108 H, Carbon Dioxide 30.0, Anion Gap 3 L, BUN 7, Creatinine 0.54 L, Estim Creat Clear Calc 235.51, Est GFR (MDRD) Af Amer 242, Est GFR (MDRD) Non-Af 200, BUN/Creatinine Ratio 12.9, Glucose 208 H, Calcium 7.9 L 09/18/23 08:22: POC Glucose 216 H 09/18/23 11:45: POC Glucose 203 H Assessment & Plan Assessment/Plan (1) Diabetic keto-acidosis: QUALIFIERS: Diabetes mellitus type: type 1 Diabetes mellitus complication detail: without coma Qualified Code(s): E10.10 - Type 1 diabetes mellitus with ketoacidosis without coma (2) Type 1 diabetes: QUALIFIERS: Diabetes mellitus complication status: with hyperglycemia Qualified Code(s): E10.65 - Type 1 diabetes mellitus with hyperglycemia PLAN: Plan This is a 22-year-old gentleman with history of type I.his blood is being admitted for DKA. Type 1 diabetes mellitus complicated into DKA: Patient is being admitted in ICU. He is no longer in metabolic acidosis and is doing better from a metabolic standpoint. We will An EGD to evaluate his upper GI tract. He was explained alternatives, risk, benefits including outstanding bleeding, infection, sepsis, perforation, need for emergent surgery . He will have an ASA of 3. Charges/Coding Visit Charges Inpatient E&M: 60377 Init Hosp L3
[2023-09-17 15:14] LABS: Bedside Glucose 138 mg/dL (74-106)
--- NOTE | 2023-09-17 15:20 | CASEMGMT ---
VERONA FONTANEZ Readmission Note Previous Admission: 08/15/23-08/18/23 Diagnosis: PE DC Disposition: Home Current Admission Current Diagnosis: DKA Pt presented to ER with N/V. Pt blood glucose was 1300. Pt has hx of DVT/PE in 08/03 and last admission for which pt is taking xarelto. VERONA FONTANEZ into pt room, pt states he was taking his medications as ordered although when reviewing the dc instructions from last dc, pt was actually taking more insulin than ordered. Pt states he just ran out of sensors the day of admission for his CGM. He also reports he will need one touch verio test strips upon dc. Pt states he has not had any follow up with any physician since last hospitalization although dc instructions state to follow up with PCP in 1 wk. Pt has been taking his xarelto and reports he is now down to daily. Pt denies having any open wounds. Pt states he does not want any appts at the counseling center, he declines any need for HHC. DC PLAN:Home, pt will need rx for one touch verio test strips and [facility] [place] called to see if there are any refills for his sensors for CGM, follow up appts made.
[2023-09-17] MEDS: 0.9% Normal Saline (1000mL) 1,000 ML 50 ML IV (16:51)
[2023-09-17 17:17] LABS: Anion Gap 3 (5-15); BUN 5 mg/dL (7-18); BUN/Creat Ratio 8.5 RATIO (10-20); Chloride 108 mmol/L (98-107); Creatinine, Serum 0.59 mg/dL (0.70-1.30); EST Glomerular Filtration Rate 182 mL/min (>60); Est Glom Filt Rate - Afr Amer 220 mL/min (>60); Estimated Creatinine Clearance 215.56 ml/min; Glucose 208 mg/dL (74-106); Potassium 3.5 mmol/L (3.5-5.1); Sodium Level 141 mmol/L (136-145)
[2023-09-17] MEDS: Enoxaparin 100 MG/ML Syringe 90 MG SC (21:07)
[2023-09-17] MEDS: Insulin Glargine-YFGN 100 UNIT/ML Pen 10 UNIT SC (21:08)
[2023-09-17 21:24] LABS: Bedside Glucose 241 mg/dL (74-106)
[2023-09-18] VITALS (10 sets, daily range): BP systolic 115–137; BP diastolic 66–99; PULSE 66–93; RESP 12–24; TEMP 36.2–37.1; O2SAT 93–98; BMI 26.7
[2023-09-18 05:50] LABS: Absolute Lymphocyte Count 1.08 X10^3/uL (0.83-4.51); Absolute Neutrophil Count 2.6 X10^3/uL (2.0-7.7); Basophil# 0.03 X10^3/uL; Basophil% 0.7 % (0-1); Eosinophil# 0.13 X10^3/uL; Eosinophils% 3.1 % (0-5); Hematocrit 30.5 % (40-54); Hemoglobin 8.8 g/dL (13.0-16.5); Lymphocyte # 1.08 X10^3/ul (0.83-4.51); Lymphocyte % 25.5 % (19-41); Mean Corp Hgb Conc 28.9 g/dL (32-36); Mean Corpuscular Hgb 20.3 pg (27.0-32.0); Mean Corpuscular Volume 70.4 fL (80-94); Mean Platelet Vol. 9.3 fl (6.2-12.0); Monocyte# 0.38 X10^3/uL; NRBC Flagged by Analyzer 0 % (0-5); Neutrophil % 61.5 % (47-70); Platelet Count 272 K/mm3 (150-450); RBC Distribution Width CV 16.8 % (11.6-14.6); RBC Distribution Width SD 42.4 fl (35.1-43.9); Red Blood Count 4.33 M/mm3 (4.6-6.2); White Blood Count 4.2 K/mm3 (4.4-11.0)
[2023-09-18 06:20] LABS: Anion Gap 3 (5-15); BUN 7 mg/dL (7-18); BUN/Creat Ratio 12.9 RATIO (10-20); Calcium,Total 7.9 mg/dL (8.5-10.1); Chloride 108 mmol/L (98-107); Creatinine, Serum 0.54 mg/dL (0.70-1.30); EST Glomerular Filtration Rate 200 mL/min (>60); Est Glom Filt Rate - Afr Amer 242 mL/min (>60); Estimated Creatinine Clearance 235.51 ml/min; Glucose 208 mg/dL (74-106); Potassium 3.5 mmol/L (3.5-5.1); Sodium Level 141 mmol/L (136-145)
--- NOTE | 2023-09-18 07:12 | PN.HOSP_ITS ---
Reason for Visit Reason for Visit: Diagnoses Type 1 diabetes mellitus with ketoacidosis without coma (09/15/23) Type 1 diabetes mellitus with hyperglycemia (09/15/23) Type 2 diabetes mellitus with ketoacidosis without coma (09/15/23) Hyperkalemia (09/15/23) Other pulmonary embolism without acute cor pulmonale (09/15/23) Acute kidney failure, unspecified (09/15/23) Subjective Subjective Still has some pain on swallowing, denies other complaints at this time Objective Data Objective Data Vital Signs: Vital Signs Temp Pulse Resp BP Pulse Ox O2 Del Method 97.8 F 66 12 122/76 H 93 Room Air 09/18/23 04:00 09/18/23 04:00 09/18/23 04:00 09/18/23 04:00 09/18/23 04:00 09/18/23 03:00 Oxygen Delivery Method Room Air Weight: 91.49 kg Body Mass Index (BMI) 26.7 Intake & Output: Intake and Output for Last 24 Hours 09/16/23 09/17/23 09/18/23 23:59 23:59 23:59 Intake Total 3366.67 / 3366.67 Output Total 3150 / 3150 300 / 300 Balance 216.67 / 216.67 -300 / -300 Medical Nutrition Assessment Dietitian: Malnutrition Criteria Met Start: 09/16/23 09:26 Freq: Status: Active Protocol: Document 09/16/23 09:26 SLA (Rec: 09/16/23 09:26 SLA Desktop) Nutrition Malnutrition Evidence of Malnutrition Exists Yes Malnutrition (severe): Acute Illness/Injury Evidenced By Suboptimal Energy Intake ( Severe),Weight Loss (Severe) Clinical Problem Altered Nutrient-Related Laboratory Values Etiology related to poorly controlled diabetes and hx of noncompliance Signs/Symptoms as evidenced by gluc 368 (on adm gluc = 1376) Status Active Problem Acute Disease or Injury Related Malnutrition Etiology related to DKA w/ nausea and vomiting Signs/Symptoms as evidenced by < 75% of est nutritional needs in past 1-2 days and 5.9% wt loss in < 1 month Status Active Problem Recommendation Dietitian Recommendations/Changes As medically able, rec ZACH to [address] controlled/ Consistent CHO diet Rec glucerna shake w/ medpass pending po intake as established. Lab / Micro Data 09/18/23 05:45 09/18/23 05:45 Labs: Laboratory Results - last 24 hr 09/17/23 08:09: POC Glucose 196 H 09/17/23 11:18: POC Glucose 75 09/17/23 14:55: POC Glucose 138 H 09/17/23 16:50: Sodium 141, Potassium 3.5, Chloride 108 H, Carbon Dioxide 30.0, Anion Gap 3 L, BUN 5 L, Creatinine 0.59 L, Estim Creat Clear Calc 215.56, Est GFR (MDRD) Af Amer 220, Est GFR (MDRD) Non-Af 182, BUN/Creatinine Ratio 8.5 L, Glucose 208 H, Calcium 8.0 L 09/17/23 21:06: POC Glucose 241 H 09/18/23 05:45: WBC 4.2 L, RBC 4.33 L, Hgb 8.8 L, Hct 30.5 L, MCV 70.4 L, MCH 20.3 L, MCHC 28.9 L, RDW Std Deviation 42.4, RDW Coeff of Rabia 16.8 H, Plt Count 272, MPV 9.3, Immature Gran % (Auto) 0.200, Neut % (Auto) 61.5, Lymph % (Auto) 25.5, [place] % (Auto) 9.0, Eos % (Auto) 3.1, Baso % (Auto) 0.7, Absolute Neuts (auto) 2.6, Absolute Lymphs (auto) 1.08, Nucleated RBC % 0, Sodium 141, Potassium 3.5, Chloride 108 H, Carbon Dioxide 30.0, Anion Gap 3 L, BUN 7, Creatinine 0.54 L, Estim Creat Clear Calc 235.51, Est GFR (MDRD) Af Amer 242, Est GFR (MDRD) Non-Af 200, BUN/Creatinine Ratio 12.9, Glucose 208 H, Calcium 7.9 L Physical Exam Narrative General: Alert, oriented, no apparent distress HEENT: Atraumatic, normocephalic Eyes: extraocular movements grossly intact Neck: Supple Respiratory: normal respiratory effort Cardiovascular: no edema appreciated GI: nondistended Extremities: Moving all extremities Neuro: No overt focal neurological deficits Psych: Cooperative Assessment & Plan Assessment/Plan (1) Diabetic ketoacidosis: QUALIFIERS: Diabetes mellitus complication detail: without coma Diabetes mellitus type: type 1 Qualified Code(s): E10.10 - Type 1 diabetes mellitus with ketoacidosis without coma PLAN: Plan Patient is a 22-year-old gentleman with multiple hospitalization admitted with DKA #Inability to swallow w/ aspiration -09/17: Patient did not pass swallow and was aspirating on even thickened liquids. Query if there could be component of his chronically uncontrolled diabetes leading to abnormalities in peristalsis in his swallowing. Discussed with speech and it did appear he has somewhat tight upper esophagus though may not be culprit it was recommended GI consult and evaluation for possible dila tion or other intervention and if this is not helpful or not recommended patient may need PEG tube placement for nutrition moving forward if there does not seem to be reversible cause. We will continue work with speech at this time. Gentle hydration and patient is n.p.o. -09/18: Patient to continue working with speech. Gentle hydration. GI consult #Diabetes mellitus type 1 presented with DKA ? Patient admitted to the intensive care unit management IV fluid resuscitation, every 4 BMPs, correction of electrolytes -09/17: Gap closed, given n.p.o. status insulin has been adjusted, not using any insulin at all may trigger patient to go back into DKA again however left to be very careful to avoid hypoglycemia -09/18: Continue to adjust insulin pending progress with diet, all insulin was decreased due to n.p.o. status but not discontinued entirely given his type I status and propensity to go into DKA #RADHA?resolved ? Secondary to severe dehydration from DKA patient being managed with IV fluid with subsequent monitoring of electrolyte -09/17: Resolved -09/18: Kidney function still within normal limits # Hypokalemia ? Corrected per protocol -09/17: Continue replace per protocol, potassium two-point in the same, will repeat to assess for further needs -09/18: Potassium 3.5 today #Recurrent PEs ? Patient on Xarelto -09/17: Transition to full dose Lovenox due to patient not swallowing -09/18: Hemoglobin stable, monitor respiratory status #Anemia - Secondary to chronic disorder monitoring H&H and transfuse if patient becomes symptomatic or hemoglobin falls below 7 -09/18: Stable 7. DVT prophylaxis ? Patient is on full dose lovenox Time spent in the patient's overall evaluation,decision-making process, review of diagnostic data, adjustment of management, discussion with other providers, nursing nursing and ancillary staff involved in patient's care documentation, 35 minutes Charges/Coding Visit Charges Inpatient E&M: 37614 Subs Hosp L2
[2023-09-18] MEDS: Insulin Lispro 100 UNIT/ML INSULN.PEN SC ×3 (08:26→17:54)
[2023-09-18] MEDS: Insulin Glargine-YFGN 100 UNIT/ML Pen 10 UNIT SC ×2 (08:26→20:58)
[2023-09-18 08:45] LABS: Bedside Glucose 216 mg/dL (74-106)
[2023-09-18 12:11] LABS: Bedside Glucose 203 mg/dL (74-106)
[2023-09-18] MEDS: 0.9% Normal Saline (1000mL) 1,000 ML 50 ML IV (13:09)
--- NOTE | 2023-09-18 13:52 | NURSING ---
To Endo at this time
--- NOTE | 2023-09-18 16:11 | OP.EGD_ITS ---
Patient Name: Romeo Carlton Procedure Date: 09/18/2023 3:40 PM Date of : 2000 Age: 22 Procedure: Upper GI endoscopy Indications: Dysphagia Providers: Adam Freeman DO Medicines: Monitored Anesthesia Care Patient Profile: This is a 22 year old male. Refer to note in patient chart for documentation of history and physical. Patient has symptoms of dysphagia with both liquids and solids. Complications: No immediate complications. Procedure: Pre-Anesthesia Assessment: - Prior to the procedure, a History and Physical was performed, and patient medications and allergies were reviewed. The risks and benefits of the procedure and the sedation options and risks were discussed with the patient. All questions were answered and informed consent was obtained. Patient identification and proposed procedure were verified by the physician in the pre-procedure area. Mental Status Examination: alert and oriented. Airway Examination: normal oropharyngeal airway and neck mobility. Respiratory Examination: clear to auscultation. CV Examination: normal. Prophylactic Antibiotics: The patient does not require prophylactic antibiotics. Prior Anticoagulants: The patient has taken no anticoagulant or antiplatelet agents. After reviewing the risks and benefits, the patient was deemed in satisfactory condition to undergo the procedure. The anesthesia plan was to use monitored anesthesia care (MAC). Immediately prior to administration of medications, the patient was re-assessed for adequacy to receive sedatives. The heart rate, respiratory rate, oxygen saturations, blood pressure, adequacy of pulmonary ventilation, and response to care were monitored throughout the procedure. The physical status of the patient was re-assessed after the procedure. After obtaining informed consent, the endoscope was passed under direct vision. Throughout the procedure, the patient's blood pressure, pulse, and oxygen saturations were monitored continuously. The gastroscope was introduced through the mouth, and advanced to the second part of duodenum. The upper GI endoscopy was accomplished without difficulty. The patient tolerated the procedure well. Scope In: 3:54:50 PM Scope Out: 3:58:17 PM Total Procedure Duration Time 0 hours 3 minutes 27 seconds Findings: LA Grade D (one or more mucosal breaks involving at least 75% of esophageal circumference) esophagitis with bleeding was found 20 to 40 cm from the incisors. Biopsies were taken with a cold forceps for histology. Verification of patient identification for the specimen was done. Estimated blood loss was minimal. Patchy, white plaques were found in the upper third of the esophagus and in the middle third of the esophagus. One benign-appearing, intrinsic moderate (circumferential scarring or stenosis; an endoscope may pass) stenosis was found 38 to 40 cm from the incisors. The stenosis was traversed. A guidewire was placed and the scope was withdrawn. Dilation was performed with a Savary dilator with no resistance at 45 Fr. The dilation site was examined following endoscope reinsertion and showed moderate improvement in luminal narrowing. Estimated blood loss was minimal. Bilious fluid was found in the stomach. Fluid aspiration was performed. The second portion of the duodenum was normal. Impression: - LA Grade D erosive esophagitis with bleeding. Biopsied. - Esophageal plaques were found, consistent with candidiasis. - Benign-appearing esophageal stenosis. Dilated. - Bilious gastric fluid. Fluid aspiration performed. - Normal second portion of the duodenum. Recommendation: - [facility]. - Give Protonix (pantoprazole): initiate therapy with 80 mg IV bolus, then 8 mg/hr IV by continuous infusion. - Use metoclopramide 10 mg IV QID;. - Mirtazapine 7.5 mg twice a day - Nystatin swish and swallow 3 times a day x7 days - Fluconazole 100 mg once a day x7 days - Continue present medications. Procedure Code(s): --- Professional --- 33344, Esophagogastroduodenoscopy, flexible, transoral; with insertion of guide wire followed by passage of dilator(s) through esophagus over guide wire 51636, 59,51, Esophagogastroduodenoscopy, flexible, transoral; with biopsy, single or multiple CPT copyright 2021 [employer]. All rights reserved. The codes documented in this report are preliminary and upon manager medicare review may be revised to meet current compliance requirements. Adam Freeman DO 09/18/2023 4:11:20 PM This report has been signed electronically. Number of Addenda: 0 Note Initiated On: 09/18/2023 3:40 PM
--- NOTE | 2023-09-18 16:11 | OP.CCLET_ITS ---
09/18/2023 Mario Reyes [address] [place] [address] Re : Upper GI endoscopy procedure for Romeo Brandt Dear Dr. Reyes This procedure was performed on Monday, September 18, 2023. My impressions and recommendations are as follows: Impressions : - LA Grade D erosive esophagitis with bleeding. Biopsied. - Esophageal plaques were found, consistent with candidiasis. - Benign-appearing esophageal stenosis. Dilated. - Bilious gastric fluid. Fluid aspiration performed. - Normal second portion of the duodenum. Recommendations : - [facility]. - Give Protonix (pantoprazole): initiate therapy with 80 mg IV bolus, then 8 mg/hr IV by continuous infusion. - Use metoclopramide 10 mg IV QID;. - Mirtazapine 7.5 mg twice a day - Nystatin swish and swallow 3 times a day x7 days - Fluconazole 100 mg once a day x7 days - Continue present medications. My findings are described in the full procedure note, which is enclosed. If I can be of further assistance, please feel free to contact me at . Sincerely, Adam Freeman, 09/18/2023 4:11:20 PM This report has been signed electronically.
[2023-09-18] MEDS: Metoclopramide 10 MG/2 ML Vial IV (17:48)
[2023-09-18] MEDS: Fluconazole 100 MG in Viaflex Bag 1 BAG 50 MG IV (17:48)
[2023-09-18] MEDS: Pantoprazole Sodium 80 MG in 0.9% Normal Saline (50mL Bag) 15 ML 420 MG IV BOLUS (18:05)
[2023-09-18] MEDS: 0.9% Saline Lock 10 ML Syringe IV (18:05)
[2023-09-18] MEDS: Pantoprazole Sodium 80 MG in 0.9% Normal Saline (100mL Bag) 80 ML 10 MG CONT INF (18:08)
[2023-09-18 18:12] LABS: Bedside Glucose 194 mg/dL (74-106)
--- NOTE | 2023-09-18 18:32 | EGD_PTH ---
PATIENT: SHIRA STEPHENSON LOC: ICU U#:[id number] AGE/SX: 22/M ROOM: [place] [address] RE09/15/[address]: Dr. Radha Randolph MD : 2000 BED: 1 DIS: 09/20/2023 SPEC #: [id number] RECD: 09/19/23 10:49 STATUS: KENIA REKelvin #: [id number] HONG: 09/18/23 18:[address]: Radha Randolph DEPT: SURGICAL PATHOLOGY RECD BY: Valerie Hennessy ENTERED: 09/19/23 10:50 SP TYPE: EGD BIOPSY OT DR: MD Dr. Mario Estevez MD Tissues: Esophageal mucous membrane Procedures: Surgery Specimen Level IV HEADER OPERATION: EGD PRE-OP DIAGNOSIS: Inability to swallow TISSUE SUBMITTED: Random esophagus MICROSCOPIC DIAGNOSIS Esophagus, random biopsy: Extensive ulceration and fibrinopurulent exudation. See comment. SJ: 09/20/2023 COMMENT Focal area also shows gastric mucosa. Intestinal metaplasia (goblet cell metaplasia) is not identified. Special stain for fungi is negative for organisms; matched control is appropriate. Correlation with clinical, endoscopic findings and appropriate follow up are necessary. MICROSCOPIC DESCRIPTION Slides are reviewed. GROSS DESCRIPTION Received is one container labeled with the patient name and designated random esophagus. The specimen consists of multiple irregular fragments of light maldonado soft tissue that in aggregate measure 0.6 x 0.5 x 0.1 cm. The specimen is totally submitted in one cassette. / DIANNE:rosina 09/19/23 TC: 2 CPT: 50755, 66366, 41644
[2023-09-18] MEDS: Enoxaparin 100 MG/ML Syringe 90 MG SC (20:57)
[2023-09-18 21:46] LABS: Bedside Glucose 194 mg/dL (74-106)
[2023-09-19] VITALS (7 sets, daily range): BP systolic 114–136; BP diastolic 69–84; PULSE 67–114; RESP 13–19; TEMP 36.2–36.4; O2SAT 96–100; BMI 26.3
[2023-09-19] MEDS: Metoclopramide 10 MG/2 ML Vial IV ×4 (00:03→16:41)
[2023-09-19] MEDS: Insulin Lispro 100 UNIT/ML INSULN.PEN SC ×4 (00:04→16:40)
[2023-09-19] MEDS: 0.9% Saline Lock 10 ML Syringe IV (00:05)
[2023-09-19] MEDS: 0.9% Normal Saline (1000mL) 1,000 ML 50 ML IV (00:17)
[2023-09-19 00:48] LABS: Bedside Glucose 162 mg/dL (74-106)
[2023-09-19 03:43] LABS: Absolute Lymphocyte Count 1.44 X10^3/uL (0.83-4.51); Absolute Neutrophil Count 2.1 X10^3/uL (2.0-7.7); Basophil# 0.03 X10^3/uL; Basophil% 0.7 % (0-1); Eosinophil# 0.17 X10^3/uL; Eosinophils% 4.2 % (0-5); Hematocrit 32.1 % (40-54); Hemoglobin 9.2 g/dL (13.0-16.5); Lymphocyte # 1.44 X10^3/ul (0.83-4.51); Lymphocyte % 35.3 % (19-41); Mean Corp Hgb Conc 28.7 g/dL (32-36); Mean Corpuscular Hgb 20.3 pg (27.0-32.0); Mean Corpuscular Volume 70.9 fL (80-94); Mean Platelet Vol. 9.2 fl (6.2-12.0); Monocyte# 0.36 X10^3/uL; Monocyte% 8.8 % (0-10); NRBC Flagged by Analyzer 0 % (0-5); Neutrophil # 2.06 X10^3/uL (2.7-7.7); Neutrophil % 50.5 % (47-70); Platelet Count 265 K/mm3 (150-450); RBC Distribution Width CV 16.4 % (11.6-14.6); RBC Distribution Width SD 41.8 fl (35.1-43.9); Red Blood Count 4.53 M/mm3 (4.6-6.2); White Blood Count 4.1 K/mm3 (4.4-11.0)
[2023-09-19 03:59] LABS: Anion Gap 4 (5-15); BUN 8 mg/dL (7-18); BUN/Creat Ratio 15.2 RATIO (10-20); Calcium,Total 8.3 mg/dL (8.5-10.1); Chloride 109 mmol/L (98-107); Creatinine, Serum 0.53 mg/dL (0.70-1.30); EST Glomerular Filtration Rate 207 mL/min (>60); Est Glom Filt Rate - Afr Amer 250 mL/min (>60); Estimated Creatinine Clearance 239.96 ml/min; Glucose 162 mg/dL (74-106); Potassium 3.6 mmol/L (3.5-5.1); Sodium Level 142 mmol/L (136-145)
[2023-09-19] MEDS: Pantoprazole Sodium 80 MG in 0.9% Normal Saline (100mL Bag) 80 ML 10 MG CONT INF ×2 (04:56→15:49)
[2023-09-19 06:20] LABS: Bedside Glucose 165 mg/dL (74-106)
--- NOTE | 2023-09-19 07:05 | PCM.PN.HOSP ---
Reason for Visit Reason for Visit: Diagnoses Type 1 diabetes mellitus with ketoacidosis without coma (09/15/23) Type 1 diabetes mellitus with hyperglycemia (09/15/23) Type 2 diabetes mellitus with ketoacidosis without coma (09/15/23) Hyperkalemia (09/15/23) Other pulmonary embolism without acute cor pulmonale (09/15/23) Acute kidney failure, unspecified (09/15/23) Subjective Subjective Already beginning to feel better today with less pain in his throat. Patient being wheeled down for swallow eval Objective Data Objective Data Vital Signs: Vital Signs Temp Pulse Resp BP Pulse Ox O2 Del Method 97.2 F L 67 19 H 128/69 H 98 Room Air 09/19/23 06:00 09/19/23 06:00 09/19/23 06:00 09/19/23 06:00 09/19/23 06:00 09/19/23 06:00 Oxygen Delivery Method Room Air Weight: 90 kg Body Mass Index (BMI) 26.3 Intake & Output: Intake and Output for Last 24 Hours 09/17/23 09/18/23 09/19/23 23:59 23:59 23:59 Intake Total 3366.67 / 3366.67 1829.17 / 1829.17 373.33 / 373.33 Output Total 3150 / 3150 900 / 900 0 / 0 Balance 216.67 / 216.67 929.17 / 929.17 373.33 / 373.33 Medical Nutrition Assessment Dietitian: Malnutrition Criteria Met Start: 09/16/23 09:26 Freq: Status: Active Protocol: Document 09/18/23 09:30 (Rec: 09/18/23 09:30 [id number]) Nutrition Malnutrition Evidence of Malnutrition Exists Yes Malnutrition (severe): Acute Illness/Injury Evidenced By Suboptimal Energy Intake ( Severe),Weight Loss (Severe) Intake Problem Inadequate Oral Intake Etiology related to silent aspiration Signs/Symptoms as evidenced by NPO status Status Active Problem Clinical Problem Altered Nutrient-Related Laboratory Values Etiology related to poorly controlled diabetes Signs/Symptoms as evidenced by admission glucose 1376 Status Active Problem Acute Disease or Injury Related Malnutrition Etiology severe, acute malnutrition related to inadequate energy intake d/t nausea, emesis, DKA Signs/Symptoms as evidenced by PO intake meeting <50% of estimated energy needs x 5 days, unintentional wt loss of 1.9kg /2% < 1 week Status Active Problem Recommendation Dietitian Recommendations/Changes recommend advance diet as tolerated to CHO controlled- texture/consistency per [employer] [employer]; if unable to advance PO diet, recommend enteral nutrition support- consult RDN for additional recommendations as indicated Lab / Micro Data 09/19/23 03:34 09/19/23 03:34 Labs: Laboratory Results - last 24 hr 09/18/23 08:22: POC Glucose 216 H 09/18/23 11:45: POC Glucose 203 H 09/18/23 17:53: POC Glucose 194 H 09/18/23 20:56: POC Glucose 194 H 09/19/23 00:04: POC Glucose 162 H 09/19/23 03:34: WBC 4.1 L, RBC 4.53 L, Hgb 9.2 L, Hct 32.1 L, MCV 70.9 L, MCH 20.3 L, MCHC 28.7 L, RDW Std Deviation 41.8, RDW Coeff of Rabia 16.4 H, Plt Count 265, MPV 9.2, Immature Gran % (Auto) 0.500, Neut % (Auto) 50.5, Lymph % (Auto) 35.3, [place]gle % (Auto) 8.8, Eos % (Auto) 4.2, Baso % (Auto) 0.7, Absolute Neuts (auto) 2.1, Absolute Lymphs (auto) 1.44, Nucleated RBC % 0, Sodium 142, Potassium 3.6, Chloride 109 H, Carbon Dioxide 29.0, Anion Gap 4 L, BUN 8, Creatinine 0.53 L, Estim Creat Clear Calc 239.96, Est GFR (MDRD) Af Amer 250, Est GFR (MDRD) Non-Af 207, BUN/Creatinine Ratio 15.2, Glucose 162 H, Calcium 8.3 L 09/19/23 05:55: POC Glucose 165 H Physical Exam Narrative General: Alert, oriented, no apparent distress HEENT: Atraumatic, normocephalic Eyes: extraocular movements grossly intact Neck: Supple Respiratory: normal respiratory effort Cardiovascular: no edema appreciated GI: nondistended Extremities: Moving all extremities Neuro: No overt focal neurological deficits Psych: Cooperative Assessment & Plan Assessment/Plan (1) Diabetic ketoacidosis: QUALIFIERS: Diabetes mellitus complication detail: without coma Diabetes mellitus type: type 1 Qualified Code(s): E10.10 - Type 1 diabetes mellitus with ketoacidosis without coma PLAN: Plan Patient is a 22-year-old gentleman with multiple hospitalization admitted with DKA #Inability to swallow w/ aspiration?severe LA grade D erosive esophagitis with bleeding and esophageal candidiasis -09/17: Patient did not pass swallow and was aspirating on even thickened liquids. Query if there could be component of his chronically uncontrolled diabetes leading to abnormalities in peristalsis in his swallowing. Discussed with speech and it did appear he has somewhat tight upper esophagus though may not be culprit it was recommended GI consult and evaluation for possible dilation or other intervention and if this is not helpful or not recommended patient may need PEG tube placement for nutrition moving forward if there does not seem to be reversible cause. We will continue work with speech at this time. Gentle hydration and patient is n.p.o. -09/18: Patient to continue working with speech. Gentle hydration. GI consult -09/19: Patient underwent endoscopy yesterday and was found to have grade D erosive esophagitis with bleeding, esophageal plaques consistent with candidiasis as well as benign-appearing esophageal stenosis which was dilated. Discussed with GI and added orders per their recommendations including Protonix bolus and then drip, Reglan 10 IV 4 times daily, Remeron 7.5 mg twice daily, fluconazole daily. We will add nystatin swish and swallow 3 times daily for 7 days once cleared to do so by speech therapy. Hesitant to give anything by mouth given patient aspirating everything he tried to eat prior to EGD. Patient going down for barium swallow #Diabetes mellitus type 1 presented with DKA ? Patient admitted to the intensive care unit management IV fluid resuscitation, every 4 BMPs, correction of electrolytes -09/17: Gap closed, given n.p.o. status insulin has been adjusted, not using any insulin at all may trigger patient to go back into DKA again however left to be very careful to avoid hypoglycemia -09/18: Continue to adjust insulin pending progress with diet, all insulin was decreased due to n.p.o. status but not discontinued entirely given his type I status and propensity to go into DKA -09/19: We will need to continue to adjust glucose once patient hopefully able to tolerate eating with improvement of underlying condition, patient to work with speech therapy. #RADHA?resolved ? Secondary to severe dehydration from DKA patient being managed with IV fluid with subsequent monitoring of electrolyte -09/17: Resolved -09/18: Kidney function still within normal limits # Hypokalemia ? Corrected per protocol -09/17: Continue replace per protocol, potassium two-point in the same, will repeat to assess for further needs -09/18: Potassium 3.5 today #Recurrent PEs ? Patient on Xarelto -09/17: Transition to full dose Lovenox due to patient not swallowing -09/18: Hemoglobin stable, monitor respiratory status #Anemia - Secondary to chronic disorder monitoring H&H and transfuse if patient becomes symptomatic or hemoglobin falls below 7 -09/18: Stable 7. DVT prophylaxis ? Patient is on full dose lovenox Time spent in the patient's overall evaluation,decision-making process, review of diagnostic data, adjustment of management, discussion with other providers, nursing nursing and ancillary staff involved in patient's care documentation, 35 minutes Charges/Coding Visit Charges Inpatient E&M: 47413 Subs Hosp L2
[2023-09-19] MEDS: Fluconazole 100 MG in Viaflex Bag 1 BAG 50 MG IV (09:35)
[2023-09-19] MEDS: Enoxaparin 100 MG/ML Syringe 90 MG SC ×2 (09:36→21:45)
[2023-09-19] MEDS: Insulin Glargine-YFGN 100 UNIT/ML Pen 10 UNIT SC ×2 (09:36→21:44)
--- NOTE | 2023-09-19 09:45 | CASEMGMT ---
VERONA FONTANEZ NOTE: Call placed to Dr Reyes's office. Appt scheduled for 09/24 @ 3 PM. This was added in pt's discharge instructions. Pt made aware of appt and states he thinks this will work for his grandma to take him to this appt. He was made aware to reschedule it if the day/time does not work for her. He voices understanding. Call to [facility]. There is a refill on CGM sensors and pharmacy made aware pt would like to have this filled. They will get it ready to be picked up. They also have refills available for test strips for a glucometer, but they have not been filling for a One-touch Verio. Pharmacy states they will attach a note to pt's chart that pt would like to get test strips for One-Touch Verio glucometer, but she also states to send a script with pt specify request for Verio to help ensure they provide pt with the correct test strips. Pt made aware of the above and made aware he will be given a script for test strips prior to discharge. He voices understanding. He denies having other discharge needs/concerns at this time. Ena MONTEZ RN, CM
[2023-09-19 11:45] LABS: Bedside Glucose 159 mg/dL (74-106)
--- NOTE | 2023-09-19 14:00 | ST.MBS ---
Modified Barium Swallow Patient Information Study Date: 09/19/23 Study Time: 13:15 Direct Billable Minutes: 79 Total Minutes procedure & reportin Diagnosis: Hyperglycemia, Severe malnutrition, Dysphagia Referring Physician: Radha Randolph Reason for Referral: Objectively assess swallow function, assess risk for aspiration, and determine recommendations for least restrictive diet textures and compensatory strategies to improve safety of swallow. 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 He presented to [facility] ED 2022 for nausea and vomiting. He was admitted to ICU for DKA. Due to coughing with food and drink, he was referred for ST consult. Due to coughing during BSE on regular textures and thin liquids, the patient was recommended for MBSS to assess [employer] concern's for aspiration. MBSS on 09/17/2023 revealed severe oropharyngeal dysphagia with SILENT aspiration of thin, nectar, and pudding. He was made NPO and recommended for GI consult due to tight upper esophageal sphincter. EGD 09/18/2023 revealed LA Grade D erosive esophagitis with bleeding, candidiasis, benign-appearing esophageal stenosis - dilated. [employer] is repeating MBSS today to determine if the patient is safe for diet advancement. Current Diet Ordered: NPO with ice chips with SpO2 monitored Dentition: WNL Mental Status: WNL Respiratory Status: Oxygenating on Room Air Penetration-Aspiration Scale Penetration-Aspiration Scale: OBJECTIVE ASSESSMENT OF SWALLOW FUNCTION (QUANTITATIVE ? PER TRIAL): PENETRATION / ASPIRATION SCALE (ARROYO): 1 = does not enter airway 2 = enters airway/above vocal folds/ejected 3 = enters airway/above vocal folds/not ejected 4 = enters airway/contacts vocal folds/ejected 5 = enters airway/contacts vocal folds/not ejected 6 = enters airway/below vocal folds/ejected 7 = enters airway/below vocal folds/not ejected despite effort 8 = enters airway/below vocal folds/no effort VIDEOFLOROSCOPIC SCALE SCORE (ARROYO): Grade I = aspiration of material that has penetrated into the laryngeal vestibule, intact cough reflex Grade II = aspiration < 10 % of the bolus, intact cough reflex Grade III = aspiration of < 10 % of the bolus, reduced cough reflex or aspiration of > 10 % of the bolus, intact cough reflex Grade IV = aspiration of > 10 % of the bolus, reduced cough reflex Penetration-Aspiration Scale Score Thin Liquid via teaspoon: Result: 1= does not enter airway Thin Liquid via teaspoon Trial 2: Result: 1= does not enter airway Thin Liquid via small single sip: cup: Result: 2= enter airway/above vocal folds/ejected Thin Liquid via sequential sips: cup: Result: 2= enter airway/above vocal folds/ejected [place] Thick Liquid via small single sip: cup: Result: 2= enter airway/above vocal folds/ejected Pudding via teaspoon: Result: 1= does not enter airway Cookie: Result: 1= does not enter airway Thin Liquid via single sip: straw: Result: 8= enters airway/below vocal folds/no effort Thin Liquid via small single sip: cup Trial 2: Result: 1= does not enter airway Thin Liquid via small single sip: cup Trial 3: Result: 1= does not enter airway Oral Phase Labial Seal: No Labial Escape Tongue Control During Bolus Hold: Posterior escape of less than half of bolus Bolus Preparation/Mastication: Timely and efficient chewing and mashing Bolus Transport/Lingual Motion: Delayed initiation of tongue motion Oral Residue: Trace residue lining oral structures Pharyngeal Phase Initiation of Pharyngeal Swallow: Bolus head in pyriforms Soft Palate Elevation: Trace column of contrast/air between soft palate and pharyngeal wall Laryngeal Elevation: Partial superior movement thyroid cart/partial apprx aryt-epig petiole Anterior Hyoid Excursion: Partial anterior movement Epiglottic Movement: Complete inversion Laryngeal Vestibule Closure at Height of Swallow: Complete; no air/contrast in laryngeal vestibule Pharyngeal Stripping Wave: Present - complete Pharyngoesophageal Segment Opening: Complete distension and complete duration; no obstruction of flow Tongue Base Retraction: Narrow column of contrast between tongue base & post. pharyngeal wall Pharyngeal Residue: Trace residue within or on pharyngeal structures Esophageal Phase Esophageal Clearance: Complete clearance Diagnosis/Impression Diagnosis: Mild oropharyngeal phase dysphagia R13.12 Impression: The oral phase is primarily marked by... -Min premature posterior loss of <1/2 the thin liquid bolus to the pyriform sinuses prior to swallow onset. -Mildly delayed tongue motion for A-P transport. The pharyngeal phase is primarily marked by... -Mildly decreased airway closure due to decreased anterior hyoid excursion and laryngeal elevation. -Mildly decreased tongue base retraction, but only trace pharyngeal residues after the swallow, which greatly improved from the previous study. -He did present with silent aspiration of thin liquids via straw. Trace laryngeal penetration with full ejection of thin and nectar/mildly thick liquids by cup. Overall, the patient's swallow function is greatly improved from previous MBSS on 09/17/2023. Recommendations Diet: Regular Textures and Thin Liquids Compensatory Strategies: Small Bites, Small Sips, No Straws, Slow Rate, Sitting upright and Remain sitting upright for 30 minutes after PO intake Supervision: Distant Supervision Recommend Repeat Modified Barium Swallow: TBD Need for Skilled Speech Therapy Services: Yes Comment: Monitor diet tolerance, educate in strategies to decrease aspiration risk, and continue oropharyngeal exercise program. Education Completed: 1. Described result of evaluation. and 7. Pt requires further education on strategies & risks. Status Active ST Patient: Active Contact Information [facility] Speech Therapy:: Melissa Whiteside M.A. [facility] Speech-Language Pathologist [facility] [address] [place] [address] [phone]
--- NOTE | 2023-09-19 15:50 | PN.GI_ITS ---
Subjective Subjective He is doing a lot better. He is not having any nausea, vomiting or upset stomach. He underwent upper endoscopy yesterday and was discovered to have severe esophageal stricture along with multiple ulcerations throughout the esophagus. This looks consistent with Minerva esophagitis. His esophageal stricture was dilated. There were no abnormalities in the stomach except for retained fluid that I suspect is from severe diabetic gastroparesis which could be acute or chronic. I suspect that it is acute on chronic gastroparesis secondary to very poorly controlled diabetes mellitus. Objective Data Objective Data Vital Signs: Vital Signs Temp Pulse Resp BP Pulse Ox O2 Del Method 97.1 F L 72 15 130/84 H 97 Room Air 09/19/23 15:00 09/19/23 15:00 09/19/23 15:00 09/19/23 15:00 09/19/23 15:00 09/19/23 15:00 Oxygen Delivery Method Room Air Weight: 198 lb 6.656 oz Body Mass Index (BMI) 26.3 Intake & Output: Intake and Output for Last 24 Hours 09/17/23 09/18/23 09/19/23 23:59 23:59 23:59 Intake Total 3366.67 / 3366.67 1829.17 / 1829.17 423.33 / 423.33 Output Total 3150 / 3150 900 / 900 0 / 0 Balance 216.67 / 216.67 929.17 / 929.17 423.33 / 423.33 Medical Nutrition Assessment Dietitian: Malnutrition Criteria Met Start: 09/16/23 09:26 Freq: Status: Active Protocol: Document 09/18/23 09:30 (Rec: 09/18/23 09:30 [id number]) Nutrition Malnutrition Evidence of Malnutrition Exists Yes Malnutrition (severe): Acute Illness/Injury Evidenced By Suboptimal Energy Intake ( Severe),Weight Loss (Severe) Intake Problem Inadequate Oral Intake Etiology related to silent aspiration Signs/Symptoms as evidenced by NPO status Status Active Problem Clinical Problem Altered Nutrient-Related Laboratory Values Etiology related to poorly controlled diabetes Signs/Symptoms as evidenced by admission glucose 1376 Status Active Problem Acute Disease or Injury Related Malnutrition Etiology severe, acute malnutrition related to inadequate energy intake d/t nausea, emesis, DKA Signs/Symptoms as evidenced by PO intake meeting <50% of estimated energy needs x 5 days, unintentional wt loss of 1.9kg /2% < 1 week Status Active Problem Recommendation Dietitian Recommendations/Changes recommend advance diet as tolerated to CHO controlled- texture/consistency per [employer]ACH[employer]PER; if unable to advance PO diet, recommend enteral nutrition support- consult RDN for additional recommendations as indicated Lab / Micro Data 09/19/23 03:34 09/19/23 03:34 Labs: Laboratory Results - last 24 hr 09/18/23 17:53: POC Glucose 194 H 09/18/23 20:56: POC Glucose 194 H 09/19/23 00:04: POC Glucose 162 H 09/19/23 03:34: WBC 4.1 L, RBC 4.53 L, Hgb 9.2 L, Hct 32.1 L, MCV 70.9 L, MCH 20.3 L, MCHC 28.7 L, RDW Std Deviation 41.8, RDW Coeff of Rabia 16.4 H, Plt Count 265, MPV 9.2, Immature Gran % (Auto) 0.500, Neut % (Auto) 50.5, Lymph % (Auto) 35.3, Dewey % (Auto) 8.8, Eos % (Auto) 4.2, Baso % (Auto) 0.7, Absolute Neuts (auto) 2.1, Absolute Lymphs (auto) 1.44, Nucleated RBC % 0, Sodium 142, Potassium 3.6, Chloride 109 H, Carbon Dioxide 29.0, Anion Gap 4 L, BUN 8, Creatinine 0.53 L, Estim Creat Clear Calc 239.96, Est GFR (MDRD) Af Amer 250, Est GFR (MDRD) Non-Af 207, BUN/Creatinine Ratio 15.2, Glucose 162 H, Calcium 8.3 L 09/19/23 05:55: POC Glucose 165 H 09/19/23 11:27: POC Glucose 159 H Physical Exam Narrative General: Alert, oriented, no apparent distress HEENT: Atraumatic, normocephalic Eyes: extraocular movements grossly intact Neck: Supple Respiratory: normal respiratory effort Cardiovascular: no edema appreciated GI: nondistended Extremities: Moving all extremities Neuro: No overt focal neurological deficits Psych: Cooperative Assessment & Plan Assessment/Plan (1) Diabetic ketoacidosis: QUALIFIERS: Diabetes mellitus type: type 1 Diabetes mellitus complication detail: without coma Qualified Code(s): E10.10 - Type 1 diabetes mellitus with ketoacidosis without coma PLAN: Plan Patient is a 22-year-old gentleman with multiple hospitalization admitted with DKA Esophageal stricture -Status post dilation Severe erosive esophagitis with Minerva esophagitis -Continue Reglan, PPI drip, Magic mouthwash (viscous lidocaine) Fluid retained in the stomach -Likely secondary to gastroparesis continue Reglan therapy and mirtazapine. Diabetes mellitus type 1 presented with DKA ? Patient admitted to the intensive care unit management IV fluid resuscitation, every 4 BMPs, correction of electrolytes RADHA ? Secondary to severe dehydration from DKA patient being managed with IV fluid with subsequent monitoring of electrolyte Charges/Coding Visit Charges Inpatient E&M: [id number] [facility] Hosp L3
[2023-09-19 16:09] LABS: Bedside Glucose 290 mg/dL (74-106)
[2023-09-19] MEDS: Insulin Lispro 100 UNIT/ML INSULN.PEN 15 UNIT SC (16:40)
[2023-09-19 18:07] LABS: Bedside Glucose 331 mg/dL (74-106)
[2023-09-19] MEDS: Mirtazapine 15 MG Tablet 7.5 MG PO (21:45)
[2023-09-19 22:05] LABS: Bedside Glucose 203 mg/dL (74-106)
[2023-09-20] MEDS: Insulin Lispro 100 UNIT/ML INSULN.PEN SC ×3 (00:01→12:51)
[2023-09-20 00:21] LABS: Bedside Glucose 244 mg/dL (74-106)
[2023-09-20] MEDS: Metoclopramide 10 MG/2 ML Vial IV ×3 (00:59→11:29)
[2023-09-20] MEDS: Pantoprazole Sodium 80 MG in 0.9% Normal Saline (100mL Bag) 80 ML 10 MG CONT INF ×2 (01:49→11:28)
[2023-09-20 02:00] VITALS: BP 107/58; PULSE 114; PULSE 80; RESP 17; TEMP 36.6; O2SAT 98
[2023-09-20 03:49] LABS: Absolute Lymphocyte Count 1.68 X10^3/uL (0.83-4.51); Absolute Neutrophil Count 1.7 X10^3/uL (2.0-7.7); Basophil# 0.04 X10^3/uL; Eosinophil# 0.11 X10^3/uL; Eosinophils% 2.9 % (0-5); Hematocrit 28.9 % (40-54); Hemoglobin 8.3 g/dL (13.0-16.5); Lymphocyte # 1.68 X10^3/ul (0.83-4.51); Lymphocyte % 44.1 % (19-41); Mean Corp Hgb Conc 28.7 g/dL (32-36); Mean Corpuscular Hgb 20.1 pg (27.0-32.0); Mean Corpuscular Volume 70.1 fL (80-94); Mean Platelet Vol. 9.2 fl (6.2-12.0); Monocyte# 0.32 X10^3/uL; Monocyte% 8.4 % (0-10); NRBC Flagged by Analyzer 0 % (0-5); Neutrophil # 1.65 X10^3/uL (2.7-7.7); Neutrophil % 43.3 % (47-70); Platelet Count 241 K/mm3 (150-450); RBC Distribution Width CV 16.1 % (11.6-14.6); RBC Distribution Width SD 40.4 fl (35.1-43.9); Red Blood Count 4.12 M/mm3 (4.6-6.2); White Blood Count 3.8 K/mm3 (4.4-11.0)
[2023-09-20 04:04] LABS: Anion Gap 7 (5-15); BUN 7 mg/dL (7-18); Calcium,Total 7.3 mg/dL (8.5-10.1); Chloride 110 mmol/L (98-107); Creatinine, Serum 0.47 mg/dL (0.70-1.30); EST Glomerular Filtration Rate 237 mL/min (>60); Est Glom Filt Rate - Afr Amer 287 mL/min (>60); Estimated Creatinine Clearance 270.59 ml/min; Glucose 238 mg/dL (74-106); Potassium 3.1 mmol/L (3.5-5.1); Sodium Level 140 mmol/L (136-145)
[2023-09-20 06:00] VITALS: BMI 26.1
[2023-09-20 06:45] LABS: Bedside Glucose 264 mg/dL (74-106)
[2023-09-20] MEDS: Potassium Chloride Oral Tablet 20 MEQ 40 MEQ PO ×2 (06:57→09:22)
--- NOTE | 2023-09-20 07:00 | PN.GI_ITS ---
Subjective Subjective Patient is doing a lot better. He was able to tolerate a diet. He had a repeat swallowing study. And it did show complete resolution of his previous stricture after dilation and being on medications. Objective Data Objective Data Vital Signs: Vital Signs Temp Pulse Resp BP Pulse Ox O2 Del Method 97.6 F L 72 18 135/98 H 99 Room Air 09/20/23 08:00 09/20/23 08:00 09/20/23 08:00 09/20/23 08:00 09/20/23 08:00 09/20/23 08:00 Oxygen Delivery Method Room Air Weight: 197 lb 1.492 oz Body Mass Index (BMI) 26.1 Intake & Output: Intake and Output for Last 24 Hours 09/18/23 09/19/23 09/20/23 23:59 23:59 23:59 Intake Total 1829.17 / 1829.17 1690.00 / 1970.00 726.5 / 726.5 Output Total 900 / 900 0 / 300 300 / 300 Balance 929.17 / 929.17 1690.00 / 1670.00 426.5 / 426.5 Lab / Micro Data 09/20/23 03:40 09/20/23 11:30 Labs: Laboratory Results - last 24 hr 09/19/23 15:48: POC Glucose 290 H 09/19/23 16:39: POC Glucose 331 H 09/19/23 21:43: POC Glucose 203 H 09/20/23 00:00: POC Glucose 244 H 09/20/23 03:40: WBC 3.8 L, RBC 4.12 L, Hgb 8.3 L, Hct 28.9 L, MCV 70.1 L, MCH 20.1 L, MCHC 28.7 L, RDW Std Deviation 40.4, RDW Coeff of Rabia 16.1 H, Plt Count 241, MPV 9.2, Immature Gran % (Auto) 0.300, Neut % (Auto) 43.3 L, Lymph % (Auto) 44.1 H, Bennett % (Auto) 8.4, Eos % (Auto) 2.9, Baso % (Auto) 1.0, Absolute Neuts (auto) 1.7 L, Absolute Lymphs (auto) 1.68, Nucleated RBC % 0, Sodium 140, Potassium 3.1 L, Chloride 110 H, Carbon Dioxide 23.0, Anion Gap 7, BUN 7, Creatinine 0.47 L, Estim Creat Clear Calc 270.59, Est GFR (MDRD) Af Amer 287, Est GFR (MDRD) Non-Af 237, BUN/Creatinine Ratio 15.0, Glucose 238 H, Calcium 7.3 L 09/20/23 06:23: POC Glucose 264 H 09/20/23 08:49: POC Glucose 299 H 09/20/23 11:30: Sodium 137, Potassium 3.9, Chloride 108 H, Carbon Dioxide 23.0, Anion Gap 6, BUN 10, Creatinine 0.83, Estim Creat Clear Calc 153.23, Est GFR (MDRD) Af Amer 148, Est GFR (MDRD) Non-Af 122, BUN/Creatinine Ratio 12.0, Glucose 277 H, Calcium 8.8 09/20/23 12:44: POC Glucose 237 H Physical Exam Narrative General: Alert, oriented, no apparent distress HEENT: Atraumatic, normocephalic Eyes: Anicteric, normal conjunctiva, extraocular movements grossly intact Neck: Supple Respiratory: Clear to auscultation bilaterally, normal respiratory effort Cardiovascular: Regular rate and rhythm GI: Soft, nontender, nondistended Extremities: No edema Musculoskeletal: Moving all extremities Neuro: No overt focal neurological deficits Skin: No rashes appreciated Psych: Cooperative Assessment & Plan Assessment/Plan (1) Diabetic ketoacidosis: QUALIFIERS: Diabetes mellitus type: type 1 Diabetes mellitus complication detail: without coma Qualified Code(s): E10.10 - Type 1 diabetes mellitus with ketoacidosis without coma PLAN: Plan Patient is a 22-year-old gentleman with multiple hospitalization admitted with DKA Esophageal stricture -Status post dilation Severe erosive esophagitis with Minerva esophagitis -Continue Reglan, PPI drip, Magic mouthwash (viscous lidocaine) Fluid retained in the stomach -Likely secondary to gastroparesis continue Reglan therapy and mirtazapine. Diabetes mellitus type 1 presented with DKA ? Patient admitted to the intensive care unit management IV fluid resuscitation, every 4 BMPs, correction of electrolytes RADHA ? Secondary to severe dehydration from DKA patient being managed with IV fluid with subsequent monitoring of electrolyte Charges/Coding Visit Charges Inpatient E&M: [id number] [facility] Hosp L3
[2023-09-20 08:00] VITALS: BP 135/98; PULSE 72; RESP 18; TEMP 36.4; O2SAT 99
[2023-09-20 09:08] LABS: Bedside Glucose 299 mg/dL (74-106)
[2023-09-20] MEDS: Fluconazole 100 MG in Viaflex Bag 1 BAG 50 MG IV (09:21)
[2023-09-20] MEDS: Insulin Glargine-YFGN 100 UNIT/ML Pen 25 UNIT SC (09:23)
[2023-09-20] MEDS: Insulin Lispro 100 UNIT/ML INSULN.PEN 15 UNIT SC ×2 (09:23→12:51)
[2023-09-20] MEDS: Enoxaparin 100 MG/ML Syringe 90 MG SC (09:24)
[2023-09-20] MEDS: Mirtazapine 15 MG Tablet 7.5 MG PO (09:24)
[2023-09-20] MEDS: NYSTATIN 500,000 UNIT/5 ML UDC 500000 UNIT PO (09:34)
[2023-09-20 11:55] LABS: Anion Gap 6 (5-15); BUN 10 mg/dL (7-18); Calcium,Total 8.8 mg/dL (8.5-10.1); Chloride 108 mmol/L (98-107); Creatinine, Serum 0.83 mg/dL (0.70-1.30); EST Glomerular Filtration Rate 122 mL/min (>60); Est Glom Filt Rate - Afr Amer 148 mL/min (>60); Estimated Creatinine Clearance 153.23 ml/min; Glucose 277 mg/dL (74-106); Potassium 3.9 mmol/L (3.5-5.1); Sodium Level 137 mmol/L (136-145)
--- NOTE | 2023-09-20 12:07 | DS.PCM_ITS ---
Providers Date of Admission: 09/15/23 Date of Discharge: 09/20/23 Primary Care Physician: Dr. Mario Reyes MD Consultations 09/17/23 15:31 Consult: Gastroenterology Routine Consulting Provider: [facility] Reason for Consult: tight upper esophagus, unable to swallow w/o aspirating EMERGENT Consult: No MD Notified: Yes Date Notified: 09/17/23 Time Notified: 15:31 Method of Notification: Verbal Reason For Visit: DKA Diagnosis Discharge Diagnosis (1) Diabetic ketoacidosis: Status: Acute Code(s): E11.10 - Type 2 diabetes mellitus with ketoacidosis without coma Qualifiers: Diabetes mellitus type: type 1 Diabetes mellitus complication detail: without coma Qualified Code(s): E10.10 - Type 1 diabetes mellitus with ketoacidosis without coma Plan #Inability to swallow w/ aspiration?severe LA grade D erosive esophagitis with bleeding and esophageal candidiasis #Diabetes mellitus type 1 presented with DKA #RADHA?resolved # Hypokalemia- resolved #Recurrent PEs #Anemia Medications at Discharge Home Medications insulin lispro 100 unit/mL subcutaneous pen (Humalog KwikPen (U-100) Insulin) See Protocol subcut ACHS DM 07/24/22 blood sugar diagnostic (codebenderTouch Verio test strips) 02/27/23 flash glucose sensor (FreeStyle Niru 14 Day Sensor kit) 02/27/23 pen needle, diabetic 32 gauge x 5/32 (BD Ultra-Fine Lorin Pen Needle) 02/27/23 potassium chloride 20 mEq tablet,extended release(part/cryst) 40 meq PO DAILY supplement 08/15/23 insulin glargine 100 unit/mL (3 mL) subcutaneous pen (Lantus Solostar U-100 Insulin) 25 unit (0.25 mL) subcut BID DIABETES #30 mL 08/18/23 insulin lispro 100 unit/mL subcutaneous pen 15 unit (0.15 mL) subcut TIDAC DIABETES #30 mL 08/18/23 rivaroxaban 20 mg tablet (Xarelto) 20 mg PO DINNER #30 tabs 09/17/23 fluconazole 100 mg tablet 100 mg PO DAILY 6 days #6 tabs 09/20/23 metoclopramide HCl 10 mg tablet (Reglan) 10 mg PO Q6H 30 days #120 tabs 09/20/23 mirtazapine 15 mg tablet 7.5 mg (1/2 x 15 mg) PO BID 30 days #30 tabs 09/20/23 nystatin 100,000 unit/mL oral suspension 500,000 unit (5 mL) PO TID 7 days #105 mL 09/20/23 pantoprazole 40 mg tablet,delayed release (Protonix) 40 mg PO BID 30 days #60 tabs 09/20/23 Hospital Course Summary of Care Provided Minutes Spent on Discharge: 35 Hospital Course: SHIRA STEPHENSON, is a 22 M with history of PE, poorly controlled type 1 diabetes mellitus with multiple episodes of DKA, 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 He was found to have glucose 1300 with anion gap 37 and large acetone w/ bicarb of 5. Pt was admitted for DKA to ICU and insulin gtt and bicarb drip. Patient improved and was transition back to his home insulin and gap closed. Unfortunately after improvement of glucose patient was having trouble swallowing and was evaluated by speech therapy and was determined to be aspirating. GI was consulted and patient had EGD which appeared to have Minerva esophagitis, LA grade D esophagitis, stricture which was dilated, and findings in the stomach suggestive of gastroparesis. He was started on Reglan, Remeron, nystatin, fluconazole, pantoprazole and his swallowing improved significantly. He had repeat evaluation with speech therapy and was able to resume diet. He tolerated this and was discharged home in stable condition. Discharge instructions as follows: DISCHARGE INSTRUCTIONS PLEASE READ *Please take this with you to your next doctors appointment* -It is very important you take your insulin as prescribed -Continue your xeralto -You are found to have an irritated esophagus as well as Minerva in your esophagus -You will be discharged on several medications, fluconazole 100 mg for 6 more days, nystatin 3 times daily for 7 days and you will also be discharged on Reglan 10 mg every 6 hours and Remeron 7.5 mg twice daily as well as Protonix 40 mg twice daily -termite control service representative use of Reglan (metoclopramide), though the side effect is rare, can be associated with the development of a medical condition called tardive dyskinesia. If you develop any stiff, jerking movements that you cannot control or uncontrollable, abnormal, and repetitive movements especially in your facial muscles please discontinue the medication immediately and contact your physician -You will need to follow-up with Dr. Freeman with GI in his office upon discharge. Please call his office to schedule your hospital follow-up appointment (ph. [phone]) -You will need to follow-up with speech therapy on discharge, prescription will be provided for you for this -Would recommend lab work (BMP) to check your potassium in 2 to 3 days through your primary care physician's office. Please call their office upon discharge to obtain order for lab work. -Please call your primary care provider's office upon discharge to schedule a hospital follow up within 1 week. -For any concerning signs or symptoms please call 911 or proceed to the nearest emergency department Physical Exam Narrative General: Alert, oriented, no apparent distress HEENT: Atraumatic, normocephalic Eyes: Anicteric, normal conjunctiva, extraocular movements grossly intact Neck: Supple Respiratory: Clear to auscultation bilaterally, normal respiratory effort Cardiovascular: Regular rate and rhythm GI: Soft, nontender, nondistended Extremities: No edema Musculoskeletal: Moving all extremities Neuro: No overt focal neurological deficits Skin: No rashes appreciated Psych: Cooperative Medical Records Data Medical Nutrition Assessment Dietitian: Malnutrition Criteria Met Start: 09/16/23 09:26 Freq: Status: Active Protocol: Document 09/18/23 09:30 (Rec: 09/18/23 09:30 [id number]) Nutrition Malnutrition Evidence of Malnutrition Exists Yes Malnutrition (severe): Acute Illness/Injury Evidenced By Suboptimal Energy Intake ( Severe),Weight Loss (Severe) Intake Problem Inadequate Oral Intake Etiology related to silent aspiration Signs/Symptoms as evidenced by NPO status Status Active Problem Clinical Problem Altered Nutrient-Related Laboratory Values Etiology related to poorly controlled diabetes Signs/Symptoms as evidenced by admission glucose 1376 Status Active Problem Acute Disease or Injury Related Malnutrition Etiology severe, acute malnutrition related to inadequate energy intake d/t nausea, emesis, DKA Signs/Symptoms as evidenced by PO intake meeting <50% of estimated energy needs x 5 days, unintentional wt loss of 1.9kg /2% < 1 week Status Active Problem Recommendation Dietitian Recommendations/Changes recommend advance diet as tolerated to CHO controlled- texture/consistency per COMMUNICATIONS WRITER; if unable to advance PO diet, recommend enteral nutrition support- consult RDN for additional recommendations as indicated Weight / BMI Weight Weight: 89.4 kg Body Mass Index (BMI) 26.1 ABG / Lab / Microbiology Data 09/20/23 03:40 09/20/23 11:30 Laboratory: Laboratory Results - last 24 hr 09/19/23 15:48: POC Glucose 290 H 09/19/23 16:39: POC Glucose 331 H 09/19/23 21:43: POC Glucose 203 H 09/20/23 00:00: POC Glucose 244 H 09/20/23 03:40: WBC 3.8 L, RBC 4.12 L, Hgb 8.3 L, Hct 28.9 L, MCV 70.1 L, MCH 20.1 L, MCHC 28.7 L, RDW Std Deviation 40.4, RDW Coeff of Rabia 16.1 H, Plt Count 241, MPV 9.2, Immature Gran % (Auto) 0.300, Neut % (Auto) 43.3 L, Lymph % (Auto) 44.1 H, [place] % (Auto) 8.4, Eos % (Auto) 2.9, Baso % (Auto) 1.0, Absolute Neuts (auto) 1.7 L, Absolute Lymphs (auto) 1.68, Nucleated RBC % 0, Sodium 140, Potassium 3.1 L, Chloride 110 H, Carbon Dioxide 23.0, Anion Gap 7, BUN 7, Creatinine 0.47 L, Estim Creat Clear Calc 270.59, Est GFR (MDRD) Af Amer 287, Est GFR (MDRD) Non-Af 237, BUN/Creatinine Ratio 15.0, Glucose 238 H, Calcium 7.3 L 09/20/23 06:23: POC Glucose 264 H 09/20/23 08:49: POC Glucose 299 H 09/20/23 11:30: Sodium 137, Potassium 3.9, Chloride 108 H, Carbon Dioxide 23.0, Anion Gap 6, BUN 10, Creatinine 0.83, Estim Creat Clear Calc 153.23, Est GFR (MDRD) Af Amer 148, Est GFR (MDRD) Non-Af 122, BUN/Creatinine Ratio 12.0, Glucose 277 H, Calcium 8.8 D/C Instructions Discharge Diet: - (Carb controlled diet, no straws) Discharge Activity: Return to Normal Activity Meaningful Use Info Meaningful Use Diagnoses (Choose all that apply): None applicable Discharge Plan Admission Admit Date/Time: 09/15/23 16:34 Primary Reason for Your Visit: DKA Attending Provider: Radha Randolph Primary Care Provider: Mario Reyes Consulting Providers: Radha Randolph; Will Mason Instructions Patient Instructions: Diabetic Ketoacidosis Additional Instructions / Restrictions: DISCHARGE INSTRUCTIONS PLEASE READ *Please take this with you to your next doctors appointment* -It is very important you take your insulin as prescribed -Continue your xeralto -You are found to have an irritated esophagus as well as Minerva in your esophagus -You will be discharged on several medications, fluconazole 100 mg for 6 more days, nystatin 3 times daily for 7 days and you will also be discharged on Reglan 10 mg every 6 hours and Remeron 7.5 mg twice daily as well as Protonix 40 mg twice daily -termite control service representative use of Reglan (metoclopramide), though the side effect is rare, can be associated with the development of a medical condition called tardive dysk inesia. If you develop any stiff, jerking movements that you cannot control or uncontrollable, abnormal, and repetitive movements especially in your facial muscles please discontinue the medication immediately and contact your physician -You will need to follow-up with Dr. Freeman with GI in his office upon discharge. Please call his office to schedule your hospital follow-up appointment (ph. [phone]) -You will need to follow-up with speech therapy on discharge, prescription will be provided for you for this -Would recommend lab work (BMP) to check your potassium in 2 to 3 days through your primary care physician's office. Please call their office upon discharge to obtain order for lab work. -Please call your primary care provider's office upon discharge to schedule a hospital follow up within 1 week. -For any concerning signs or symptoms please call 911 or proceed to the nearest emergency department Discharge Orders/Prescriptions Prescriptions: New Xarelto 20 mg Tablet 20 mg PO DINNER Qty: 30 0RF fluconazole 100 mg tablet 100 mg PO DAILY 6 Days Qty: 6 0RF nystatin 100,000 unit/mL Suspension 500,000 unit PO TID 7 Days Qty: 105 0RF mirtazapine 15 mg Tablet 7.5 mg PO BID 30 Days Qty: 30 0RF pantoprazole [Protonix] 40 mg tablet,delayed release (DR/EC) 40 mg PO BID 30 Days Qty: 60 0RF metoclopramide HCl [Reglan] 10 mg tablet 10 mg PO Q6H 30 Days Qty: 120 0RF Continued insulin lispro [Humalog KwikPen Insulin] 100 unit/mL insulin pen See Protocol subcut [facility] Protocol: 1. Sliding Scale Insulin Low Dosing Condition: 150-224 mg/dl = 1 unit Condition: 225-299 mg/dl = 2 units Condition: 300-374 mg/dl = 3 units Condition: 375-499 mg/dl = 4 units Condition: Greater than 449 call physician Protocol Text: - Use for Total Daily Dose of Insulin 15-27 units - Thin, elderly, renal patients LOW DOSING ALGORITHM (DME) OneTouch Verio test strips Strip See Rx Instructions .ROUTE .MEDSUPPLY Rx Instructions: 4x/day (DME) pen needle, diabetic [BD Ultra-Fine Lorin Pen Needle] 32 gauge x 5/32 needle See Rx Instructions .ROUTE .MEDSUPPLY Rx Instructions: As directed (DME) FreeStyle Niru 14 Day Sensor Kit See Rx Instructions .ROUTE .MEDSUPPLY Rx Instructions: As directed potassium chloride 20 mEq tablet,ER particles/crystals 40 meq PO DAILY Patient Comments: TAKE 1 TABLET BY MOUTH TWICE DAILY WITH MEALS insulin lispro 100 unit/mL insulin pen 15 unit subcut TIDAC Qty: 30 0RF Rx Instructions: Hold if glucose less than 130 mg/dl insulin glargine [Lantus Solostar U-100 Insulin] 100 unit/mL (3 mL) insulin pen 25 unit SUBCUT BID Qty: 30 0RF Rx Instructions: Hold if glucose less than 130 mg/dl Discontinued Xarelto DVT-PE Treat 30d Start 15 mg (42)- 20 mg (9) tablets,dose pack See Rx Instructions .ROUTE .COMPLEX Qty: 51 0RF Rx Instructions: take one-15 mg tablet twice daily for 21 days, then one-20 mg tablet once daily; must take with meal/food Referrals / Follow Up: Adam Freeman DO [Med Staff - Active Staff] - Mario Reyes MD [Primary Care Provider] - 09/24/23 3:00 pm (Appt is with Dr Reyes. Please arrive @ 2:45 PM. ) Disposition Disposition (needs filled in before D/C Order can be placed): Home, Self Care Charges/Coding Visit Charges Inpatient E&M: 81678 Disch Hosp >30min
[2023-09-20 13:02] LABS: Bedside Glucose 237 mg/dL (74-106)
--- NOTE | 2023-09-20 13:40 | CASEMGMT ---
VERONA FONTANEZ NOTE: Pt being discharged home. VERONA FONTANEZ to room. Script provided for glucometer test strips for Verio glucometer per pt request. ST recommends OP ST. Script received from Dr Randolph and this was also given to pt and to his grandmother, who is at bedside to take pt home. They were made aware of locations that provide OP therapy in [facility]. Grandmother states prefers pt to go to [email or web address] and she was agreeable to VERONA FONTANEZ scheduling appt. Script faxed along w/demographics to [email or web address] and call placed to Valerie @ [email or web address]. She states unable to schedule appt at this time until therapists review pt's chart and determine who to schedule pt with. She was made aware to contact pt's grandmother per pt and grandmother's request. Grandmother and pt made aware that [email or web address] should be calling her to schedule appt and she was provided w/[email or web address]'s contact #. Grandmother made aware of PCP appt that has been scheduled for pt and and she states she can take pt to that appt and to OP ST. She and pt deny having other discharge planning needs or concerns. Ena MONTEZ RN CM
== END 2023-09-20 14:23 | disposition home or self-care (01) | DRG 420 ==
LOC: ED 16:11 → ICU 16:44
PROVIDERS: Internal Medicine; Internal Medicine Gastroenterology; Admitting Provider Internal Medicine; Emergency Provider Emergency Medicine; PCP Internal Medicine; Visit Provider Internal Medicine
PROC: 0DJ08ZZ Inspection of Upper Intestinal Tract, Via Natural or Artificial Opening Endoscopic (ICD-10-PCS; CPT 43235; principal; 2023-09-18 14:55)
DX: E10.10 Type 1 diabetes mellitus with ketoacidosis without coma (principal); E43 Unspecified severe protein-calorie malnutrition; K22.11 Ulcer of esophagus with bleeding; B37.81 Candidal esophagitis; E87.4 Mixed disorder of acid-base balance; I27.82 Chronic pulmonary embolism; D63.8 Anemia in other chronic diseases classified elsewhere; N17.9 Acute kidney failure, unspecified; E10.43 Type 1 diabetes mellitus with diabetic autonomic (poly)neuropathy; Z79.4 Long term (current) use of insulin; K22.2 Esophageal obstruction; E87.6 Hypokalemia; E87.5 Hyperkalemia; K31.84 Gastroparesis; E86.0 Dehydration; Z68.26 Body mass index [BMI] 26.0-26.9, adult; Z79.01 Long term (current) use of anticoagulants; Z79.899 Other long term (current) drug therapy
CPT/HCPCS: 36415; 74230; 80048; 80053; 80076; 81001; 82009; 82803; 82962; 83735; 85025; 88305; 92526; 92610; 92611; 93005; 97802; 97803; 99285; J7030; A4216; J2405; J3490

== ENCOUNTER 2023-10-05 14:00 | Inpatient (IN) | payer MEDICAID, SELFPAY ==
[2023-10-05] VITALS (12 sets, daily range): BP systolic 94–155; BP diastolic 46–78; PULSE 61–124; RESP 15–20; TEMP 36.2–36.6; O2SAT 94–100; BMI 25.7
--- NOTE | 2023-10-05 14:13 | EDS_ITS ---
HPI History of Present Illness Chief Complaint: Hyperglycemia Detail of Chief Complaint: Elevated blood sugar, nausea vomiting Informant: patient, parent and EMS Onset/Context/Timing Onset: Today Context: Sudden Onset Timing: Continuous Quality: Dyspnea, nausea and vomiting, high blood sugar Location: Not applicable Current Severity: Severe Maximum Severity: Severe Worsened by: Nausea and vomiting Relieved by: Nothing Associated Symptoms Associated Symptoms: No other symptoms. Narrative Narrative: Rashmi is a 22-year-old type I diabetic who presents with nausea that started this morning. He does not know how many times he vomited other than a lot . Did not appear bloody or dark in appearance. Patient denies fever or chills. Patient denies double vision. He does have bilateral blurred vision. He does endorse thirst and dry mouth as well as lightheadedness with standing. He denies chest discomfort. He denies cough. He does report shortness of breath. He does complain of vague abdominal discomfort with nausea and vomiting. He denies diarrhea. He endorses decreased urine output without dysuria or hematuria. He denies flank pain. He denies any skin lesions. He apparently was sitting out waiting for his mom to bring him to the emergency department. Note he arrived by ambulance. Prior similar symptoms: Yes Recent Illness/Hospitalization: Yes [facility] Medical History Anxiety AP window (aortopulmonary window) Asthma Depression Diabetes mellitus type 1 DVT (deep venous thrombosis) femur surgery Gastroparesis GERD (gastroesophageal reflux disease) History of medication noncompliance Hypokalemia Hypokalemia Kidney disease Lower extremity edema Nausea and vomiting Non-smoker Noncompliance Noncompliance with diabetes treatment Nonhealing surgical wound Psychosocial problem Severe protein-calorie malnutrition Sinus tachycardia seen on poly area supervisor Type 1 diabetes Ulcer of leg, chronic Wound of left lower extremity Home Medications insulin lispro 100 unit/mL subcutaneous pen (Humalog KwikPen (U-100) Insulin) See Protocol subcut ACHS DM 07/24/22 [History Last Taken Unknown] blood sugar diagnostic (OneTouch Verio test strips) 02/27/23 [History Last Taken Unknown] flash glucose sensor (FreeStyle Niru 14 Day Sensor kit) 02/27/23 [History Last Taken Unknown] pen needle, diabetic 32 gauge x 5/32 (BD Ultra-Fine Lorin Pen Needle) 02/27/23 [History Last Taken Unknown] potassium chloride 20 mEq tablet,extended release(part/cryst) 40 meq PO DAILY supplement 08/15/23 [History Last Taken Unknown] insulin glargine 100 unit/mL (3 mL) subcutaneous pen (Lantus Solostar U-100 Insulin) 25 unit (0.25 mL) subcut BID DIABETES #30 mL 08/18/23 [Rx Last Taken Unknown] insulin lispro 100 unit/mL subcutaneous pen 15 unit (0.15 mL) subcut TIDAC DIABETES #30 mL 08/18/23 [Rx Last Taken Unknown] rivaroxaban 20 mg tablet (Xarelto) 20 mg PO DINNER #30 tabs 09/17/23 [Rx Last Taken Unknown] fluconazole 100 mg tablet 100 mg PO DAILY 6 days #6 tabs 09/20/23 [Rx Last Taken Unknown] metoclopramide HCl 10 mg tablet (Reglan) 10 mg PO Q6H 30 days #120 tabs 09/20/23 [Rx Last Taken Unknown] mirtazapine 15 mg tablet 7.5 mg (1/2 x 15 mg) PO BID 30 days #30 tabs 09/20/23 [Rx Last Taken Unknown] nystatin 100,000 unit/mL oral suspension 500,000 unit (5 mL) PO TID 7 days #105 mL 09/20/23 [Rx Last Taken Unknown] pantoprazole 40 mg tablet,delayed release (Protonix) 40 mg PO BID 30 days #60 tabs 09/20/23 [Rx Last Taken Unknown] Allergy/AdvReac Type Severity Reaction Status Date / Time vancomycin Allergy local Verified 10/05/23 14:01 rash/hives to IV site Family History Father Polysubstance overdose Patient father young secondary to OD. Mother Iron deficiency anemia Other Asthma CVA (cerebral vascular accident) Diabetes Hypertension Thyroid disorder Surgical History H/O right knee surgery History of surgery on extremity Hx of knee surgery Social History housing: other details: Lives with his grandmother, aunt and mother. Smoking Status: Never smoker alcohol intake: current alcohol intake frequency: a few times a month substance use type: does not use ROS ROS ED Constitutional Constitutional ED: Reports chills; Denies fever(s), subjective, sweats or weight loss Eyes Eyes: Reports blurry vision bilateral ENT ENT ED: Denies ear pain, rhinorrhea or sore throat Cardiovascular Cardiovascular: Reports palpitations; Denies chest pain, orthopnea or paroxysmal nocturnal dyspnea Respiratory/Chest Respiratory/Chest: Reports dyspnea; Denies cough, dyspnea on exertion, orthopnea or paroxysmal nocturnal dyspnea Gastrointestinal Gastrointestinal: Reports abdominal pain, nausea and vomiting; Denies cons tipation, diarrhea or melena Genitourinary Genitourinary ED: Denies dysuria, hematuria or urinary frequency Musculoskeletal Musculoskeletal: Denies arthralgias or myalgias Integumentary Denies rash Neurologic Neurologic: Reports weakness; Denies headache(s) or paresthesias Endocrine Endocrinology: Reports polydipsia; Denies cold intolerance or heat intolerance Hematologic/Lymphatic Hematologic/Lymphatic: Reports systems reviewed and no addt'l complaints, except as documented EXAM Physical Exam Const Vital Signs: 10/05/23 14:01 10/05/23 14:05 Temperature 97.1 F L Temperature Source Oral Pulse Rate 61 Respiratory Rate 16 Respiratory Effort Normal Respiratory Pattern Tachypnea Blood Pressure 117/46 L Blood Pressure Mean 69 Pulse Ox 100 Oxygen Delivery Method Room Air Positive well nourished and well developed Constitutional Narrative: Patient appears ill and is pale. His mentation is slow. General Appearance ED: well developed and pallor HEENT Reports dry mucous membranes HEENT Narrative: Is atraumatic and normocephalic. Ears are normal. Nares are patent. Posterior pharynx out erythema or exudate. Mouth ED: Yes dry mucous membranes Mouth: dry mucous membranes Eyes PERRL and EOMs intact bilaterally General Eye ED: Negative for pale conjunctiva or scleral icterus Neck no lymphadenopathy, supple and no JVD Chest Wall inspection of chest normal and palpation of chest normal Resp normal respiratory effort and clear to auscultation bilaterally Cardio regular rhythm, S1 normal heart sound, S2 normal heart sound and no murmurs Rate: tachycardic GI normal to inspection, nondistended, normoactive bowel sounds, non-distended and no masses; Negative for non-tender or hepatosplenomegaly GI Narrative: Normal upper abdominal discomfort without guarding or peritoneal findings Auscultation: hypoactive bowel sounds Palpation: soft Back/Spine no CVA tenderness Extremity Extremity Narrative: Stigmata of peripheral arterial disease. His feet are cold. His toes are pale. He does have sensation and movement. Suspect this is due to the fact that he was outside without shoes on. He has no here on his toes consistent with small vessel disease. Neuro oriented x3, CN's II-XII intact bilaterally and no sensory deficits noted Neuro Narrative: Patient is awake but not alert. Sensorium / Orientation: Negative for alert Psych Negative for mental status grossly normal Mood & Affect: depressed Skin no wounds and No skin turgor normal General Skin Exam: pallor; Negative for jaundice MDM MDM MDM Narrative Medical decision making narrative: Patient being tachypneic and tachycardic with ketotic odor to his breath suspect he is in DKA. Will obtain VBG to assess acid-base status and determine if patient needs bicarb. ED DKA order set was initiated. Patient is received 1 L of normal saline prior to initiation of insulin. Reviewing med list reveals he is on Xarelto. Will confirm in the event that nurses are unsuccessful obtaining peripheral line. Chest x-ray was obtained to rule out any pulmonary cause. Suspect his dyspnea is due to DKA and not infectious cause. UA was obtained to rule out infection. There is no dermatologic lesions noted. Patient was treated with Reglan for his nausea and vomiting since he has significant history of diabetes and suspect diabetic gastroparesis. EKG was obtained because of concern for hyperkalemia. Lab Data Attestation: I reviewed the patient's lab results. Lab results narrative: Count is slightly elevated 12.4 thousand with shift. There is no bandemia. Patient does have microcytic anemia. Patient's hemoglobin has been in 1 to 2 g lower in the past. Suspect this is hemoconcentrated due to dehydration from DKA. CO2 was 4. Glucose is 993 with an anion gap of 32. Patient has pseudohyponatremia with a sodium of 123. Creatinine is elevated at 1.54. Need is approximately 2 times normal. Labs: Laboratory Results - last 24 hr 10/05/23 14:15 WBC 12.4 H RBC 5.12 Hgb 10.4 L Hct 36.7 L MCV 71.7 L MCH 20.3 L MCHC 28.3 L RDW Std Deviation 39.9 RDW Coeff of Rabia 15.8 H Plt Count 493 H MPV 10.0 Immature Gran % (Auto) 0.600 Neut % (Auto) 82.5 H Lymph % (Auto) 12.7 L [place] % (Auto) 3.1 Eos % (Auto) 0.1 Baso % (Auto) 1.0 Absolute Neuts (auto) 10.2 H Absolute Lymphs (auto) 1.58 Nucleated RBC % 0 Sodium 123 L Potassium 5.6 H Chloride 87 L Carbon Dioxide 4.0 L* Anion Gap 32 H BUN 19 H Creatinine 1.54 H Estim Creat Clear Calc 82.58 Est GFR (MDRD) Af Amer 73 Est GFR (MDRD) Non-Af 60 BUN/Creatinine Ratio 12.3 Glucose 993 H* Calcium 9.8 Magnesium 2.6 Acetone Level LARGE H ABG Data Attestation: I personally reviewed and interpreted this ABG as follows: Interpretation: ABG reveals a metabolic acidosis with a pH of 7.0, total CO2 less than 5, base excess -28. ABG results: ABG 10/05/23 14:24 Specimen Type MARILYNN Sample Site Not entered O2 % 21.0 VBG pH 7.00 L* VBG pO2 105 H VBG Total CO2 < 5 L VBG O2 Sat (Calc) 94 H VBG Base Excess -28 L POC Mix VBG pCO2 Pt Tmp 13.4 L* O2 Delivery Device Room Air Crit Call To/Read Back Yes Blood Gas Notified Whom loera Blood Gas Notified Time 14:26:33 Radiography Chest X-Ray - ED: 1 View and Read by ED Physician (Cardiac silhouette size normal. Lung parenchyma normal. Perihilar regions normal. Osseous structures are unremarkable. This was independently reviewed interpreted by me at 14:44) Rhythm Strip Rhythm Strip: Sinus Tach Rate: 112 EKG Initial EKG: Attestation: I personally reviewed and interpreted this EKG as follows: Interpretation: Sinus Tachycardia (PT is 123. Other than the sinus tach t he EKG is normal. ID interval is 140 ms. QRS duration 100 ms. QT duration 320 ms. [place] is normal. No peaked T waves noted.) Critical Care Time Critical Care Time: Yes Critical care time (excluding procedures): 30-74 minutes (34), Including time spent: (3, physical, documentation, review of prior records, independent int erpretation of chest x-ray, EKG and laboratory results), Discussing w/Patient &/or Family/Grain Inspector (In with patient and mother regarding need for admission), Discussing w/Consultants and Arranging Admission or Transfer Discharge Plan Triage Chief Complaint: Hyperglycemia ED Provider: Minh Loera Dx/Rx/DC Orders Clinical Impression: Diabetic ketoacidosis, type I, Gastroparesis, RADHA (acute kidney injury), Anemia due to chronic illness, Pseudohyponatremia, Persistent vomiting in adult patient, Anticoagulant long-term use Prescriptions: No Action insulin lispro [Humalog KwikPen Insulin] 100 unit/mL insulin pen See Protocol subcut ACHS Protocol: 1. Sliding Scale Insulin Low Dosing Condition: 150-224 mg/dl = 1 unit Condition: 225-299 mg/dl = 2 units Condition: 300-374 mg/dl = 3 units Condition: 375-499 mg/dl = 4 units Condition: Greater than 449 call physician Protocol Text: - Use for Total Daily Dose of Insulin 15-27 units - Thin, elderly, renal patients LOW DOSING ALGORITHM (DME) OneTouch Verio test strips Strip See Rx Instructions .ROUTE .MEDSUPPLY Rx Instructions: 4x/day (DME) pen needle, diabetic [BD Ultra-Fine Lorin Pen Needle] 32 gauge x 5/32 needle See Rx Instructions .ROUTE .MEDSUPPLY Rx Instructions: As directed (DME) FreeStyle Niru 14 Day Sensor Kit See Rx Instructions .ROUTE .MEDSUPPLY Rx Instructions: As directed potassium chloride 20 mEq tablet,ER particles/crystals 40 meq PO DAILY Patient Comments: TAKE 1 TABLET BY MOUTH TWICE DAILY WITH MEALS insulin lispro 100 unit/mL insulin pen 15 unit subcut TIDAC Qty: 30 0RF Rx Instructions: Hold if glucose less than 130 mg/dl insulin glargine [Lantus Solostar U-100 Insulin] 100 unit/mL (3 mL) insulin pen 25 unit SUBCUT BID Qty: 30 0RF Rx Instructions: Hold if glucose less than 130 mg/dl Xarelto 20 mg Tablet 20 mg PO DINNER Qty: 30 0RF fluconazole 100 mg tablet 100 mg PO DAILY 6 Days Qty: 6 0RF nystatin 100,000 unit/mL Suspension 500,000 unit PO TID 7 Days Qty: 105 0RF mirtazapine 15 mg Tablet 7.5 mg PO BID 30 Days Qty: 30 0RF pantoprazole [Protonix] 40 mg tablet,delayed release (DR/EC) 40 mg PO BID 30 Days Qty: 60 0RF metoclopramide HCl [Reglan] 10 mg tablet 10 mg PO Q6H 30 Days Qty: 120 0RF Primary Care Provider: Mario Reyes Referrals: Mario Reyes MD [Primary Care Provider] -
[2023-10-05 14:23] LABS: Absolute Lymphocyte Count 1.58 X10^3/uL (0.83-4.51); Absolute Neutrophil Count 10.2 X10^3/uL (2.0-7.7); Basophil# 0.13 X10^3/uL; Eosinophil# 0.01 X10^3/uL; Eosinophils% 0.1 % (0-5); Hematocrit 36.7 % (40-54); Hemoglobin 10.4 g/dL (13.0-16.5); Lymphocyte # 1.58 X10^3/ul (0.83-4.51); Lymphocyte % 12.7 % (19-41); Mean Corp Hgb Conc 28.3 g/dL (32-36); Mean Corpuscular Hgb 20.3 pg (27.0-32.0); Mean Corpuscular Volume 71.7 fL (80-94); Monocyte# 0.39 X10^3/uL; Monocyte% 3.1 % (0-10); NRBC Flagged by Analyzer 0 % (0-5); Neutrophil # 10.22 X10^3/uL (2.7-7.7); Neutrophil % 82.5 % (47-70); Platelet Count 493 K/mm3 (150-450); RBC Distribution Width CV 15.8 % (11.6-14.6); RBC Distribution Width SD 39.9 fl (35.1-43.9); Red Blood Count 5.12 M/mm3 (4.6-6.2); White Blood Count 12.4 K/mm3 (4.4-11.0)
[2023-10-05] MEDS: 0.9% Normal Saline (1000mL) 1,000 ML 999 ML IV ×2 (14:25→14:30)
[2023-10-05] MEDS: Metoclopramide 10 MG/2 ML Vial 5 MG IV (14:26)
[2023-10-05 14:28] LABS: Blood Gas Specimen Type VEN; O2 Delivery Device Room Air; SITE Not entered; VBG BASE EXCESS -28 mmol/L (-1.0-3.5); VBG PO2 105 mmHg (25-40); VBG SO2 94 % (50-70); VBG TCO2 < 5 mmol/L (23-33); VBG pCO2 13.4 mmHg (41-51)
--- NOTE | 2023-10-05 14:35 | RAD_ITS ---
STUDY: X-RAY CHEST REASON FOR EXAM: Male, 22 years old. Dyspnea TECHNIQUE: Single AP portable view of the chest. COMPARISON: January 20, 2023 FINDINGS: The lungs are clear and expanded. There is no demonstrated pleural abnormality. Normal size heart. Normal mediastinum and rudi. Normal visualized pulmonary arteries. Normal visualized aortic arch and descending thoracic aorta. Normal visualized thoracic spine. Normal visualized ribs, clavicles, and shoulders. There is no demonstrated abnormality of the visualized soft tissue structures of the upper abdomen. RAD/Chest 1 View (Portable) IMPRESSION: Normal x-ray examination of the chest. Electronically Signed: Milan Soto MD at 15:25 [facility] ,
[2023-10-05 15:11] LABS: Anion Gap 32 (5-15); BUN 19 mg/dL (7-18); BUN/Creat Ratio 12.3 RATIO (10-20); Calcium,Total 9.8 mg/dL (8.5-10.1); Chloride 87 mmol/L (98-107); Creatinine, Serum 1.54 mg/dL (0.70-1.30); EST Glomerular Filtration Rate 60 mL/min (>60); Est Glom Filt Rate - Afr Amer 73 mL/min (>60); Estimated Creatinine Clearance 82.58 ml/min; Glucose 993 mg/dL (74-106); Magnesium 2.6 mg/dL (1.6-2.6); Potassium 5.6 mmol/L (3.5-5.1); Sodium Level 123 mmol/L (136-145)
--- NOTE | 2023-10-05 15:24 | PCM.HP.STD ---
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 Additionally he has increased thirst and dry mouth as well as some lightheadedness on standing. In ED he was tachypneic and tachycardic and was suspected to be in DKA. Given fluids and DKA work-up obtained. Patient was acidotic on VBG with pH of 7 and CO2 less than 5. He had large acetone in his blood as well as a glucose of 993 with an anion gap of 32 and a bicarb of 4. Patient diagnosed with DKA and placed on fluids and insulin drip and hospitalist contacted for admission. Evaluated with family member at bedside, he reports being in his usual health until this morning when he began feeling nauseous and vomiting and generally unwell. Endorses compliance with all of his medications and says he last took his insulin this morning. Feels somewhat dizzy when he gets up but not dizzy while laying in bed, has some tachypnea but no cough, feels cold overall. Patient reportedly has been following with speech on outpatient basis and still has modified diet and has been adherent to that. [facility] Medical History Anxiety AP window (aortopulmonary window) Asthma Depression Diabetes mellitus type 1 DVT (deep venous thrombosis) femur surgery Gastroparesis GERD (gastroesophageal reflux disease) History of medication noncompliance Hypokalemia Hypokalemia Kidney disease Lower extremity edema Nausea and vomiting Non-smoker Noncompliance Noncompliance with diabetes treatment Nonhealing surgical wound Psychosocial problem Severe protein-calorie malnutrition Sinus tachycardia seen on learning support teacher Type 1 diabetes Ulcer of leg, chronic Wound of left lower extremity Home Medications insulin lispro 100 unit/mL subcutaneous pen (Humalog KwikPen (U-100) Insulin) See Protocol subcut ACHS DM 07/24/22 [History Last Taken 10/05/23] blood sugar diagnostic (OneTouch Verio test strips) 02/27/23 [History Last Taken Unknown] flash glucose sensor (FreeStyle Niru 14 Day Sensor kit) 02/27/23 [History Last Taken Unknown] pen needle, diabetic 32 gauge x 5/32 (BD Ultra-Fine Lorin Pen Needle) 02/27/23 [History Last Taken Unknown] potassium chloride 20 mEq tablet,extended release(part/cryst) 40 meq PO DAILY supplement 08/15/23 [History Last Taken 10/05/23] rivaroxaban 20 mg tablet (Xarelto) 20 mg PO DINNER #30 tabs 09/17/23 [Rx Last Taken 10/05/23] metoclopramide HCl 10 mg tablet (Reglan) 10 mg PO Q6H 30 days #120 tabs 09/20/23 [Rx Last Taken 10/05/23] mirtazapine 15 mg tablet 7.5 mg (1/2 x 15 mg) PO BID 30 days #30 tabs 09/20/23 [Rx Last Taken Unknown] pantoprazole 40 mg tablet,delayed release (Protonix) 40 mg PO BID 30 days #60 tabs 09/20/23 [Rx Last Taken Unknown] insulin glargine 100 unit/mL (3 mL) subcutaneous pen (Lantus Solostar U-100 Insulin) 35 unit subcut BID DIABETES 10/05/23 [History Last Taken 10/05/23] insulin lispro 100 unit/mL subcutaneous pen 25 unit subcut TIDAC DIABETES 10/05/23 [History Last Taken 10/05/23] Allergy/AdvReac Type Severity Reaction Status Date / Time vancomycin Allergy local Verified 10/05/23 14:01 rash/hives to IV site Family History Father Polysubstance overdose Patient father young secondary to OD. Mother Iron deficiency anemia Other Asthma CVA (cerebral vascular accident) Diabetes Hypertension Thyroid disorder Surgical History H/O right knee surgery History of surgery on extremity Hx of knee surgery Social History housing: other details: Lives with his grandmother, aunt and mother. Smoking Status: Never smoker alcohol intake: current alcohol intake frequency: a few times a month substance use type: does not use ROS ROS Narrative General: Feels generally cold right now HENT: Denies stuffy nose, denies sore throat EYES: Some blurring of vision Resp: Denies cough, increased rate of breathing Cardiac: Denies chest pain GI: Having nausea and vomiting : Denies changes in urination Extremity: Denies swelling MSK: Feels generally weak and unwell Neuro: Denies any numbness/tingling Heme: Denies any bleeding or bruising Skin: Denies rashes Psychiatric: Does not feel well Vital Signs Vital Signs Vital Signs: 10/05/23 14:01 10/05/23 14:05 Temperature 97.1 F L Temperature Source Oral Pulse Rate 61 Respiratory Rate 16 Respiratory Effort Normal Respiratory Pattern Tachypnea Blood Pressure 117/46 L Blood Pressure Mean 69 Pulse Ox 100 Oxygen Delivery Method Room Air Weight Weight: 86.2 kg Body Mass Index (BMI) 25.7 Physical Exam Narrative General: Alert, oriented, appears uncomfortable and cold HEENT: Atraumatic, normocephalic Eyes: Anicteric, normal conjunctiva, extraocular movements grossly intact Neck: Supple Respiratory: Clear to auscultation bilaterally, slightly tachypneic Cardiovascular: Slightly tachycardic GI: Soft, nontender, nondistended Extremities: No edema Musculoskeletal: Moving all extremities Neuro: No overt focal neurological deficits Skin: No rashes appreciated Psych: Cooperative but appears to not feel well Results Lab / Micro Data 10/05/23 14:15 10/05/23 14:15 Labs: Laboratory Results - last 24 hr 10/05/23 14:15: WBC 12.4 H, RBC 5.12, Hgb 10.4 L, Hct 36.7 L, MCV 71.7 L, MCH 20.3 L, MCHC 28.3 L, RDW Std Deviation 39.9, RDW Coeff of Rabia 15.8 H, Plt Count 493 H, MPV 10.0, Immature Gran % (Auto) 0.600, Neut % (Auto) 82.5 H, Lymph % (Auto) 12.7 L, [place] % (Auto) 3.1, Eos % (Auto) 0.1, Baso % (Auto) 1.0, Absolute Neuts (auto) 10.2 H, Absolute Lymphs (auto) 1.58, Nucleated RBC % 0, Sodium 123 L, Potassium 5.6 H, Chloride 87 L, Carbon Dioxide 4.0 L*, Anion Gap 32 H, BUN 19 H, Creatinine 1.54 H, Estim Creat Clear Calc 82.58, Est GFR (MDRD) Af Amer 73, Est GFR (MDRD) Non-Af 60, BUN/Creatinine Ratio 12.3, Glucose 993 H*, Calcium 9.8, Magnesium 2.6, Acetone Level LARGE H ABG Data ABG results: ABG 10/05/23 14:24 Specimen Type MARILYNN Sample Site Not entered O2 % 21.0 VBG pH 7.00 L* VBG pO2 105 H VBG Total CO2 < 5 L VBG O2 Sat (Calc) 94 H VBG Base Excess -28 L POC Mix VBG pCO2 Pt Tmp 13.4 L* O2 Delivery Device Room Air Crit Call To/Read Back Yes Blood Gas Notified Whom loera Blood Gas Notified Time 14:26:33 Rhythm Strip Rhythm Strip: Sinus Tach Rate: 112 Assessment & Plan Assessment/Plan (1) Diabetic ketoacidosis, type I: (2) Lynn grade D esophagitis: (3) Pseudohyponatremia: (4) Recurrent pulmonary embolism: (5) Type 1 diabetes: QUALIFIERS: Diabetes mellitus complication status: with hyperglycemia Qualified Code(s): E10.65 - Type 1 diabetes mellitus with hyperglycemia (6) RADHA (acute kidney injury): PLAN: Plan #DKA in setting of chronic type 1 diabetes -Serum glucose in ED 993, anion gap 32 -VBG with pH of 7.0 and CO2 less than 5 -Serum acetone large -Admit to intensive care unit -N.p.o. -Insulin drip started -Aggressive fluid hydration -Glucose checks and DKA protocol -BMP every 4H -Replace electrolytes per protocol -I's and O's -When serum glucose is <250 mg/dl, change IV fluids to D5%1/2NS at 150 ml/hr and continue insulin drip as per nomogram #RADHA -Baseline creatinine around 0.5 and patient is 1.54 today -Continue IV hydration #Hyperkalemia -Secondary to his profound hyperglycemia, suspect this will correct quickly -Trend BMPs #pseudohyponatremia -correct hyperglycemia #History of PE -We will continue his Xarelto #Nausea/vomiting -Likely due to DKA +/- component of diabetic gastroparesis -Supportive care -Continue IV fluids -Zofran as needed and continue Reglan -Holding mirtazapine twice daily as patient's blood pressure is low and also do not want to over sedate him #Erosive esophagitis resulting dysphagia -Seen on most recent admission -Continue PPI -Still having problems on outpatient basis with modified diet, will consult speech #DVT ppx: Vani Randolph MD Charges/Coding Visit Charges Inpatient E&M: 54876 Init Hosp L2
[2023-10-05] MEDS: Insulin Lispro 100 UNIT in 0.9% Normal Saline (100mL Bag) 99 ML 8.6 UNIT CONT INF (17:03)
[2023-10-05 17:04] LABS: Bedside Glucose > 500 mg/dL (74-106)
[2023-10-05] MEDS: 0.9% Normal Saline (1000mL) 1,000 ML 250 ML IV ×2 (17:04→21:19)
[2023-10-05 17:19] LABS: Anion Gap 27 (5-15); BUN 21 mg/dL (7-18); BUN/Creat Ratio 16.2 RATIO (10-20); Calcium,Total 7.8 mg/dL (8.5-10.1); Chloride 98 mmol/L (98-107); EST Glomerular Filtration Rate 73 mL/min (>60); Est Glom Filt Rate - Afr Amer 88 mL/min (>60); Estimated Creatinine Clearance 97.83 ml/min; Glucose 956 mg/dL (74-106); Magnesium 2.2 mg/dL (1.6-2.6); Potassium 5.7 mmol/L (3.5-5.1); Sodium Level 129 mmol/L (136-145)
[2023-10-05 18:26] LABS: Bedside Glucose > 500 mg/dL (74-106)
[2023-10-05 18:27] LABS: Glucose 942 mg/dL (74-106)
[2023-10-05 19:28] LABS: Glucose 707 mg/dL (74-106)
[2023-10-05] MEDS: 0.9% Saline Lock 10 ML Syringe IV (20:02)
[2023-10-05 20:41] LABS: Magnesium 2.7 mg/dL (1.6-2.6)
[2023-10-05 20:48] LABS: Anion Gap 24 (5-15); BUN 21 mg/dL (7-18); Chloride 106 mmol/L (98-107); EST Glomerular Filtration Rate 67 mL/min (>60); Est Glom Filt Rate - Afr Amer 81 mL/min (>60); Estimated Creatinine Clearance 90.84 ml/min; Glucose 474 mg/dL (74-106); Potassium 4.2 mmol/L (3.5-5.1); Sodium Level 138 mmol/L (136-145)
[2023-10-05 21:43] LABS: Bedside Glucose 437 mg/dL (74-106)
[2023-10-05 21:57] LABS: Bedside Glucose 360 mg/dL (74-106)
[2023-10-05 22:24] LABS: Bedside Glucose 312 mg/dL (74-106)
[2023-10-05 23:24] LABS: Bedside Glucose 264 mg/dL (74-106)
[2023-10-06] VITALS (23 sets, daily range): BP systolic 97–121; BP diastolic 41–85; PULSE 92–129; RESP 8–19; TEMP 36.2–37.2; O2SAT 98–100; BMI 25.6
[2023-10-06] MEDS: Ondansetron 4 MG/2 ML Vial IV (00:09)
[2023-10-06] MEDS: 0.9% Saline Lock 10 ML Syringe IV ×2 (00:09→04:17)
[2023-10-06] MEDS: Dext 5%-0.45% NS 1,000 ML 150 ML IV ×2 (00:21→07:02)
[2023-10-06 00:28] LABS: Anion Gap 19 (5-15); BUN 17 mg/dL (7-18); BUN/Creat Ratio 13.5 RATIO (10-20); Calcium,Total 8.9 mg/dL (8.5-10.1); Chloride 113 mmol/L (98-107); Creatinine, Serum 1.26 mg/dL (0.70-1.30); EST Glomerular Filtration Rate 76 mL/min (>60); Est Glom Filt Rate - Afr Amer 91 mL/min (>60); Estimated Creatinine Clearance 100.93 ml/min; Glucose 247 mg/dL (74-106); Sodium Level 143 mmol/L (136-145)
[2023-10-06 00:28] LABS: Bedside Glucose 229 mg/dL (74-106)
[2023-10-06 00:30] LABS: Magnesium 2.3 mg/dL (1.6-2.6)
[2023-10-06 01:12] LABS: Bedside Glucose 229 mg/dL (74-106)
[2023-10-06 02:16] LABS: Bedside Glucose 226 mg/dL (74-106)
[2023-10-06 03:20] LABS: Bedside Glucose 211 mg/dL (74-106)
[2023-10-06 04:17] LABS: Absolute Lymphocyte Count 1.65 X10^3/uL (0.83-4.51); Absolute Neutrophil Count 8.1 X10^3/uL (2.0-7.7); Basophil# 0.04 X10^3/uL; Basophil% 0.4 % (0-1); Eosinophil# 0.02 X10^3/uL; Eosinophils% 0.2 % (0-5); Hemoglobin 9.3 g/dL (13.0-16.5); Lymphocyte # 1.65 X10^3/ul (0.83-4.51); Mean Corpuscular Hgb 20.2 pg (27.0-32.0); Mean Corpuscular Volume 65.2 fL (80-94); Mean Platelet Vol. 8.8 fl (6.2-12.0); NRBC Flagged by Analyzer 0 % (0-5); Neutrophil # 8.11 X10^3/uL (2.7-7.7); Neutrophil % 73.9 % (47-70); Platelet Count 461 K/mm3 (150-450); RBC Distribution Width CV 16.3 % (11.6-14.6); RBC Distribution Width SD 37.2 fl (35.1-43.9)
[2023-10-06 04:31] LABS: Anion Gap 13 (5-15); BUN 17 mg/dL (7-18); BUN/Creat Ratio 12.1 RATIO (10-20); Calcium,Total 8.7 mg/dL (8.5-10.1); Chloride 115 mmol/L (98-107); EST Glomerular Filtration Rate 67 mL/min (>60); Est Glom Filt Rate - Afr Amer 81 mL/min (>60); Estimated Creatinine Clearance 90.84 ml/min; Glucose 238 mg/dL (74-106); Potassium 3.8 mmol/L (3.5-5.1); Sodium Level 143 mmol/L (136-145)
[2023-10-06 04:39] LABS: Bedside Glucose 208 mg/dL (74-106)
[2023-10-06 05:29] LABS: Bedside Glucose 228 mg/dL (74-106)
[2023-10-06 06:23] LABS: Bedside Glucose 216 mg/dL (74-106)
--- NOTE | 2023-10-06 06:53 | PN.HOSP_ITS ---
Reason for Visit Reason for Visit: Nausea/vomiting Subjective Subjective Patient is a 22-year-old male who has frequent admissions for diabetic ketoacidosis with his most recent being from 09/15/2023 through 09/20/2023. This is due to history of noncompliance with his insulin. Patient reported that he presented to the hospital emergency department on 10/05/2023 due to hyperglycemia as well as nausea and vomiting that started on the morning of admission. Patient reported increased thirst and dry mouth as well as some lightheadedness upon standing. Upon presentation he was tachypneic and tachycardic and DKA was suspected given his history. He was given IV fluids and DKA workup was obtained. He was acidotic on VBG with pH of 7 and had large acetone in his blood as well as a glucose of 993 on presentation. Anion gap was 32 and his bicarb was 4 on chemistry panel. He was placed on IV fluids and an insulin drip and we were contacted for admission. He was admitted to the ICU and has been on insulin drip as well as aggressive hydration since. Some nausea. Patient is unclear what medications he has been taking at home. Also unsure what diet he has been on however he does report he has been drinking thin liquids and soft food. Will have speech therapy see him prior to allowing him to eat. Objective Data Objective Data Vital Signs: Vital Signs Temp Pulse Resp BP Pulse Ox O2 Del Method O2 Flow Rate 97.9 F 115 H 17 97/49 L 99 Room Air 2 10/06/23 00:00 10/06/23 06:00 10/06/23 06:00 10/06/23 06:00 10/06/23 06:00 10/06/23 06:00 10/05/23 17:15 Oxygen Flow Rate (L/min) 2 Oxygen Delivery Method Room Air Weight: 85.8 kg Body Mass Index (BMI) 25.6 Intake & Output: Intake and Output for Last 24 Hours 10/04/23 10/05/23 10/06/23 23:59 23:59 23:59 Intake Total 2435.92 / 2438.12 737.23 / 737.23 Output Total 1025 / 1030 395 / 395 Balance 1410.92 / 1408.12 342.23 / 342.23 Lab / Micro Data 10/06/23 04:11 10/06/23 08:35 Labs: Laboratory Results - last 24 hr 10/05/23 14:15: WBC 12.4 H, RBC 5.12, Hgb 10.4 L, Hct 36.7 L, MCV 71.7 L, MCH 20.3 L, MCHC 28.3 L, RDW Std Deviation 39.9, RDW Coeff of Rabia 15.8 H, Plt Count 493 H, MPV 10.0, Immature Gran % (Auto) 0.600, Neut % (Auto) 82.5 H, Lymph % (Auto) 12.7 L, [place] % (Auto) 3.1, Eos % (Auto) 0.1, Baso % (Auto) 1.0, Absolute Neuts (auto) 10.2 H, Absolute Lymphs (auto) 1.58, Nucleated RBC % 0, Sodium 123 L, Potassium 5.6 H, Chloride 87 L, Carbon Dioxide 4.0 L*, Anion Gap 32 H, BUN 19 H, Creatinine 1.54 H, Estim Creat Clear Calc 82.58, Est GFR (MDRD) Af Amer 73, Est GFR (MDRD) Non-Af 60, BUN/Creatinine Ratio 12.3, Glucose 993 H*, Calcium 9.8 , Magnesium 2.6, Acetone Level LARGE H 10/05/23 16:29: POC Glucose > 500 H* 10/05/23 16:45: Sodium 129 L, Potassium 5.7 H, Chloride 98, Carbon Dioxide 4.0 L*, Anion Gap 27 H, BUN 21 H, Creatinine 1.30, Estim Creat Clear Calc 97.83, Est GFR (MDRD) Af Amer 88, Est GFR (MDRD) Non-Af 73, BUN/Creatinine Ratio 16.2, Glucose 956 H*, Calcium 7.8 L, Magnesium 2.2 10/05/23 17:55: Glucose 942 H* 10/05/23 17:56: POC Glucose > 500 H* 10/05/23 18:55: Glucose 707 H* 10/05/23 20:07: POC Glucose 437 H 10/05/23 20:08: Sodium 138, Potassium 4.2, Chloride 106, Carbon Dioxide 8.0 L*, Anion Gap 24 H, BUN 21 H, Creatinine 1.40 H, Estim Creat Clear Calc 90.84, Est GFR (MDRD) Af Amer 81, Est GFR (MDRD) Non-Af 67, BUN/Creatinine Ratio 15.0, Glucose 474 H*, Calcium 9.0, Magnesium 2.7 H 10/05/23 21:16: POC Glucose 360 H 10/05/23 22:02: POC Glucose 312 H 10/05/23 23:06: POC Glucose 264 H 10/06/23 00:02: POC Glucose 229 H 10/06/23 00:06: Sodium 143, Potassium 4.0, Chloride 113 H, Carbon Dioxide 11.0 L , Anion Gap 19 H, BUN 17, Creatinine 1.26, Estim Creat Clear Calc 100.93, Est GFR (MDRD) Af Amer 91, Est GFR (MDRD) Non-Af 76, BUN/Creatinine Ratio 13.5, Glucose 247 H, Calcium 8.9, Magnesium 2.3 10/06/23 00:54: POC Glucose 229 H 10/06/23 01:56: POC Glucose 226 H 10/06/23 03:00: POC Glucose 211 H 10/06/23 04:04: POC Glucose 208 H 10/06/23 04:11: WBC 11.0, RBC 4.60, Hgb 9.3 L, Hct 30.0 L, MCV 65.2 L D, MCH 20.2 L, MCHC 31.0 L D, RDW Std Deviation 37.2, RDW Coeff of Rabia 16.3 H, Plt Count 461 H, MPV 8.8, Immature Gran % (Auto) 0.500, Neut % (Auto) 73.9 H, Lymph % (Auto) 15.0 L, [place] % (Auto) 10.0, Eos % (Auto) 0.2, Baso % (Auto) 0.4, Absolute Neuts (auto) 8.1 H, Absolute Lymphs (auto) 1.65, Nucleated RBC % 0, Sodium 143, Potassium 3.8, Chloride 115 H, Carbon Dioxide 15.0 L, Anion Gap 13, BUN 17, Creatinine 1.40 H, Estim Creat Clear Calc 90.84, Est GFR (MDRD) Af Amer 81, Est GFR (MDRD) Non-Af 67, BUN/Creatinine Ratio 12.1, Glucose 238 H, Calcium 8.7 10/06/23 05:03: POC Glucose 228 H 10/06/23 06:02: POC Glucose 216 H ABG Data ABG results: ABG 10/05/23 14:24 Specimen Type MARILYNN Sample Site Not entered O2 % 21.0 VBG pH 7.00 L* VBG pO2 105 H VBG Total CO2 < 5 L VBG O2 Sat (Calc) 94 H VBG Base Excess -28 L POC Mix VBG pCO2 Pt Tmp 13.4 L* O2 Delivery Device Room Air Crit Call To/Read Back Yes Blood Gas Notified Whom loera Blood Gas Notified Time 14:26:33 Radiography Diagnostic Testing: Radiology Impression Chest X-Ray 10/05/23 14:35 IMPRESSION: Normal x-ray examination of the chest. Electronically Signed: Milan Soto MD at 15:25 EST , Rhythm Strip Rhythm Strip: Sinus Tach Rate: 112 Physical Exam Const alert, oriented x3 and no apparent distress; Negative for average body habitus, healthy appearing or well nourished Constitutional Narrative: Cachectic, young, white male, lying in bed, appears comfortable at this time, nontoxic HEENT head/scalp atraumatic and moist oral mucous membranes HEENT Narrative: Dentition is fair for age, Mallampati is 1, no thrush Head and Scalp: normocephalic Resp normal respiratory effort, no retractions, no use of accessory muscles and clear to auscultation bilaterally Auscultation: Negative for crackles, rhonchi or wheezes Cardio regular rhythm, S1 normal heart sound, S2 normal heart sound, no murmurs, no rub, no gallops and no clicks Cardio Narrative: Very mild tachycardia GI normal to inspection, nondistended, normoactive bowel sounds, soft to palpation and non-tender GI Narrative: Scaphoid abdomen Extremity no clubbing, cyanosis or edema Extremity Narrative: 2+ pedal pulses, decreased lean muscle mass Neuro oriented x3, moves all extremities and no focal motor deficits Speech: speech normal Psych Psych Narrative: Affect is flattened mood seems depressed Assessment & Plan Assessment/Plan (1) Anticoagulant long-term use: (2) Persistent vomiting in adult patient: (3) Pseudohyponatremia: (4) RADHA (acute kidney injury): (5) Diabetic ketoacidosis, type I: (6) Minerva esophagitis: (7) Gastroparesis: (8) Thrombocytosis: (9) Metabolic acidosis: PLAN: Plan Diabetic ketoacidosis -Resolving -Anion gap is closed and currently 13 however serum bicarb is still on the lo wer side at 15 -We will review next laboratory data and make decision on transition from IV to subcu insulin -Anticipate transition to SQ insulin soon but will await next lab -Continue insulin drip and IV fluids Anion gap metabolic acidosis -Resolved Nausea and vomiting -Likely due to DKA with possible component of gastroparesis -Continue supportive care -As needed antiemetics -Continue IV fluids Hyperkalemia -Resolved with treatment of his DKA Leukocytosis - resolved Chronic microcytic anemia -Patient appears to have some iron deficiency based on previous labs -Will start IV iron x 3 doses and then start oral iron -EGD done last hospitalization and he does have severe esophagitis with what appeared to be candidiasis related esophagitis and this was treated -Hemoglobin is currently stable and compared to previous Thrombocytosis -Suspect related to iron deficiency -Laboratory data reviewed from August reveals extremely low iron saturation and ferritin and MCV is low -EGD done at last hospitalization without any bleeding but patient did have severe esophagitis -IV iron as noted Dysphagia -Patient has been working with speech therapy--> remains on modified diet and will need to continue that once p.o. diet can be initiated -On EGD last hospitalization was found to have severe grade D erosive esoph agitis with bleeding and esophageal candidiasis -Continue PPI twice daily -Treatment for candidiasis has been completed Gastroparesis secondary to longstanding history of poorly controlled diabetes -Restart Reglan once p.o. diet is initiated DM-1 uncontrolled -Patient noncompliant does not follow regularly with anyone for his diabetes -A1c was obtained on 08/15/2023 and was 11.5 in the setting of anemia -Discussed the deleterious effects of long-term uncontrolled blood sugars -Patient with frequent DKA admissions -see above Severe malnutrition -Supplements to be initiated when p.o. diet can be started -Dietitian consultation History of pericarditis/pericardial infection -At the end of last year he was admitted to [facility] and found to have MSSA in his pericardial fluid.? He was placed on long-term antibiotics History of PE/DVT -Continue Xarelto Depression -Mirtazapine on hold for now due to lower blood pressures and risk for today's and will reach per. DVT prophylaxis -xarelto CODE STATUS -full code Charges/Coding Visit Charges Inpatient E&M: 61827 Subs Hosp L2
[2023-10-06 08:28] LABS: Bedside Glucose 183 mg/dL (74-106)
[2023-10-06] MEDS: Sodium Ferric Gluconat/Sucrose 250 MG in 0.9% Normal Saline (250mL Bag) 250 ML 135 MG IV (08:59)
[2023-10-06 09:15] LABS: Anion Gap 8 (5-15); BUN 17 mg/dL (7-18); BUN/Creat Ratio 11.7 RATIO (10-20); Calcium,Total 8.9 mg/dL (8.5-10.1); Chloride 115 mmol/L (98-107); Creatinine, Serum 1.45 mg/dL (0.70-1.30); EST Glomerular Filtration Rate 64 mL/min (>60); Est Glom Filt Rate - Afr Amer 78 mL/min (>60); Estimated Creatinine Clearance 87.71 ml/min; Glucose 198 mg/dL (74-106); Potassium 3.4 mmol/L (3.5-5.1); Sodium Level 142 mmol/L (136-145)
[2023-10-06 09:24] LABS: Bedside Glucose 192 mg/dL (74-106)
[2023-10-06] MEDS: Potassium Chloride Oral Soln 20 MEQ/15 ML UDC 40 MEQ PO (10:46)
[2023-10-06] MEDS: Lactated Ringers 1,000 ML 75 ML IV (10:46)
[2023-10-06] MEDS: Pantoprazole Sodium 40 MG Tablet PO ×2 (10:46→20:28)
[2023-10-06] MEDS: Mirtazapine 15 MG Tablet 7.5 MG PO ×2 (10:46→20:28)
[2023-10-06] MEDS: Metoclopramide 10 MG/2 ML Vial 5 MG IV (10:47)
[2023-10-06] MEDS: Insulin Glargine-YFGN 100 UNIT/ML Pen 35 UNIT SC ×2 (11:14→20:29)
[2023-10-06 11:28] LABS: Bedside Glucose 160 mg/dL (74-106)
--- NOTE | 2023-10-06 11:30 | CASEMGMT ---
VERONA FONTANEZ chart review: Patient was admitted 09/15-09/20/23 for DKA. See VERONA FONTANEZ assessment from 08/16/23. Patient was discharged to home with family and outpatient ST at [facility]. Patient returned to [facility] ED for N/V, BS was over 900 and admitted for DKA. Patient states he attended his PCP appt on 09/24/23. Patient states he has all medications and testing supplies at home. Patient states he was taking his insulin, but since he wasn't eating he didn't take is insulin. RN HUSEYIN educated patient on the importance of taking insulin when BS are elevated, patient voiced understanding. Patient denied further questions or concerns at this time. CM to follow this patient and plan for a safe discharge.
[2023-10-06] MEDS: Insulin Lispro 100 UNIT/ML INSULN.PEN 25 UNIT SC (12:22)
[2023-10-06] MEDS: Insulin Lispro 100 UNIT/ML INSULN.PEN SC ×2 (12:23→20:29)
[2023-10-06 12:45] LABS: Bedside Glucose 163 mg/dL (74-106)
[2023-10-06 12:45] LABS: Bedside Glucose 229 mg/dL (74-106)
[2023-10-06 17:40] LABS: Bedside Glucose 62 mg/dL (74-106)
[2023-10-06 17:40] LABS: Bedside Glucose 113 mg/dL (74-106)
[2023-10-06] MEDS: Metoclopramide 10 MG Tablet PO ×2 (17:49→23:02)
[2023-10-06] MEDS: Rivaroxaban 20 MG Tablet PO (17:49)
[2023-10-06 20:53] LABS: Bedside Glucose 227 mg/dL (74-106)
[2023-10-07] MEDS: Lactated Ringers 1,000 ML 75 ML IV (00:38)
[2023-10-07 03:18] VITALS: BP 94/51; PULSE 97; RESP 16; TEMP 36.8; O2SAT 99
[2023-10-07 06:00] VITALS: BMI 25.5
[2023-10-07] MEDS: Metoclopramide 10 MG Tablet PO ×2 (06:41→17:42)
[2023-10-07 06:42] VITALS: BP 105/61
[2023-10-07 06:48] LABS: Absolute Lymphocyte Count 1.49 X10^3/uL (0.83-4.51); Absolute Neutrophil Count 2.8 X10^3/uL (2.0-7.7); Basophil# 0.03 X10^3/uL; Basophil% 0.6 % (0-1); Eosinophil# 0.07 X10^3/uL; Eosinophils% 1.5 % (0-5); Hematocrit 27.7 % (40-54); Hemoglobin 8.4 g/dL (13.0-16.5); Lymphocyte # 1.49 X10^3/ul (0.83-4.51); Lymphocyte % 31.8 % (19-41); Mean Corp Hgb Conc 30.3 g/dL (32-36); Mean Corpuscular Hgb 20.3 pg (27.0-32.0); Mean Corpuscular Volume 66.9 fL (80-94); Mean Platelet Vol. 9.3 fl (6.2-12.0); Monocyte# 0.32 X10^3/uL; Monocyte% 6.8 % (0-10); NRBC Flagged by Analyzer 0 % (0-5); Neutrophil # 2.77 X10^3/uL (2.7-7.7); Neutrophil % 59.1 % (47-70); Platelet Count 355 K/mm3 (150-450); RBC Distribution Width CV 17.3 % (11.6-14.6); RBC Distribution Width SD 41.1 fl (35.1-43.9); Red Blood Count 4.14 M/mm3 (4.6-6.2); White Blood Count 4.7 K/mm3 (4.4-11.0)
[2023-10-07 07:19] LABS: AST(SGOT) 12 U/L (15-37); Alanine Aminotransfer ALT/SGPT 15 U/L (16-61); Albumin, Serum 2.9 g/dL (3.2-5.0); Alkaline Phosphatase 107 U/L (45-117); Anion Gap 7 (5-15); BUN 11 mg/dL (7-18); Calcium,Total 8.3 mg/dL (8.5-10.1); Chloride 112 mmol/L (98-107); Creatinine, Serum 0.92 mg/dL (0.70-1.30); EST Glomerular Filtration Rate 109 mL/min (>60); Est Glom Filt Rate - Afr Amer 132 mL/min (>60); Estimated Creatinine Clearance 138.24 ml/min; Globulin 2.9 g/dL (2.2-4.2); Glucose 88 mg/dL (74-106); Magnesium 1.7 mg/dL (1.6-2.6); Phosphorus 2.1 mg/dL (2.5-4.9); Potassium 2.8 mmol/L (3.5-5.1); Protein, Total 5.8 g/dL (6.4-8.2); Sodium Level 141 mmol/L (136-145)
[2023-10-07 08:38] LABS: Bedside Glucose 111 mg/dL (74-106)
[2023-10-07] MEDS: Potassium Chloride Oral Tablet 20 MEQ 40 MEQ PO (09:01)
[2023-10-07] MEDS: Potassium Phosphate 40 MMOL in 0.9% Normal Saline (500mL Bag) 500 ML 62.5 MMOL IV (09:01)
[2023-10-07] MEDS: Pantoprazole Sodium 40 MG Tablet PO (09:03)
[2023-10-07] MEDS: Mirtazapine 15 MG Tablet 7.5 MG PO (09:03)
[2023-10-07] MEDS: Insulin Glargine-YFGN 100 UNIT/ML Pen 35 UNIT SC (09:04)
[2023-10-07 09:11] VITALS: BP 120/70; PULSE 110; RESP 16; TEMP 36.4; O2SAT 100
--- NOTE | 2023-10-07 09:46 | DS.PCM_ITS ---
Providers Date of Admission: 10/05/23 Date of Discharge: 10/07/23 Primary Care Physician: Dr. Mario Reyes MD Reason For Visit: DKA, RADHA Diagnosis Discharge Diagnosis (1) Anticoagulant long-term use: Status: Acute Code(s): Z79.01 - intermediate (current) use of anticoagulants (2) Persistent vomiting in adult patient: Status: Acute Code(s): R11.15 - Cyclical vomiting syndrome unrelated to migraine (3) Pseudohyponatremia: Status: Acute Code(s): R79.89 - Other specified abnormal findings of blood chemistry (4) RADHA (acute kidney injury): Status: Acute Code(s): N17.9 - Acute kidney failure, unspecified (5) Diabetic ketoacidosis, type I: Status: Acute Code(s): E10.10 - Type 1 diabetes mellitus with ketoacidosis without coma (6) Minerva esophagitis: Status: Acute Code(s): B37.81 - Candidal esophagitis (7) Gastroparesis: Status: Acute Code(s): K31.84 - Gastroparesis (8) Thrombocytosis: Status: Acute Code(s): D75.839 - Thrombocytosis, unspecified (9) Metabolic acidosis: Status: Acute Code(s): E87.20 - Acidosis, unspecified Plan Diabetic ketoacidosis -Resolving -Anion gap is closed and currently 13 however serum bicarb is still on the lower side at 15 -We will review next laboratory data and make decision on transition from IV to subcu insulin -Anticipate transition to SQ insulin soon but will await next lab -Continue insulin drip and IV fluids Anion gap metabolic acidosis -Resolved Nausea and vomiting -Likely due to DKA with possible component of gastroparesis -Continue supportive care -As needed antiemetics -Continue IV fluids Hyperkalemia -Resolved with treatment of his DKA Leukocytosis - resolved Chronic microcytic anemia -Patient appears to have some iron deficiency based on previous labs -Will start IV iron x 3 doses and then start oral iron -EGD done last hospitalization and he does have severe esophagitis with what appeared to be candidiasis related esophagitis and this was treated -Hemoglobin is currently stable and compared to previous Thrombocytosis -Suspect related to iron deficiency -Laboratory data reviewed from August reveals extremely low iron saturation and ferritin and MCV is low -EGD done at last hospitalization without any bleeding but patient did have severe esophagitis -IV iron as noted Dysphagia -Patient has been working with speech therapy--> remains on modified diet and will need to continue that once p.o. diet can be initiated -On EGD last hospitalization was found to have severe grade D erosive esophagitis with bleeding and esophageal candidiasis -Continue PPI twice daily -Treatment for candidiasis has been completed Gastroparesis secondary to longstanding history of poorly controlled diabetes -Restart Reglan once p.o. diet is initiated DM-1 uncontrolled -Patient noncompliant does not follow regularly with anyone for his diabetes -A1c was obtained on 08/15/2023 and was 11.5 in the setting of anemia -Discussed the deleterious effects of long-term uncontrolled blood sugars -Patient with frequent DKA admissions -see above Severe malnutrition -Supplements to be initiated when p.o. diet can be started -Dietitian consultation History of pericarditis/pericardial infection -At the end of last year he was admitted to [facility] and found t o have MSSA in his pericardial fluid.? He was placed on long-term antibiotics History of PE/DVT -Continue Xarelto Depression -Mirtazapine on hold for now due to lower blood pressures and risk for today's and will reach per. DVT prophylaxis -xarelto CODE STATUS -full code Medications at Discharge Home Medications insulin lispro 100 unit/mL subcutaneous pen (Humalog KwikPen (U-100) Insulin) See Protocol subcut ACHS DM 07/24/22 blood sugar diagnostic (OneTouch Verio test strips) 02/27/23 flash glucose sensor (FreeStyle Niru 14 Day Sensor kit) 02/27/23 pen needle, diabetic 32 gauge x 5/32 (BD Ultra-Fine Lorin Pen Needle) 02/27/23 potassium chloride 20 mEq tablet,extended release(part/cryst) 40 meq PO DAILY supplement 08/15/23 rivaroxaban 20 mg tablet (Xarelto) 20 mg PO DINNER #30 tabs 09/17/23 metoclopramide HCl 10 mg tablet (Reglan) 10 mg PO Q6H 30 days #120 tabs 09/20/23 mirtazapine 15 mg tablet 7.5 mg (1/2 x 15 mg) PO BID 30 days #30 tabs 09/20/23 pantoprazole 40 mg tablet,delayed release (Protonix) 40 mg PO BID 30 days #60 tabs 09/20/23 insulin glargine 100 unit/mL (3 mL) subcutaneous pen (Lantus Solostar U-100 Insulin) 35 unit subcut BID DIABETES 10/05/23 insulin lispro 100 unit/mL subcutaneous pen 25 unit subcut TIDAC DIABETES 10/05/23 Hospital Course Operations None Procedures EKG and - (Chest x-ray) Summary of Care Provided Minutes Spent on Discharge: 37 Hospital Course: Patient is a 22-year-old male who has frequent admissions for diabetic ketoacidosis with his most recent being from 09/15/2023 through 09/20/2023. This is due to history of noncompliance with his insulin. Patient reported that he presented to the hospital emergency department on 10/05/2023 due to hyperglycemia as well as nausea and vomiting that started on the morning of admission. Patient reported increased thirst and dry mouth as well as some ligh theadedness upon standing. Upon presentation he was tachypneic and tachycardic and DKA was suspected given his history. He was given IV fluids and DKA workup was obtained. He was acidotic on VBG with pH of 7 and had large acetone in his blood as well as a glucose of 993 on presentation. Anion gap was 32 and his bicarb was 4 on chemistry panel. He was placed on IV fluids and an insulin drip and we were contacted for admission. He was admitted to the ICU and has been on insulin drip as well as aggressive hydration. We were able to transition him off the insulin drip as he had normalized his gap and cleared his ketones by midmorning on 10/06/2023. I did have speech therapy evaluate him prior to starting p.o. diet and discontinuing the drip due to his history of dysphagia related to severe esophageal candidiasis. They recommended a thin liquid mechanical soft diet which was reinitiated and patient tolerated well. He was eating well prior to discharge. He had significant electrolyte abnormalities which were addressed during his hospital course. I did discuss again with the patient his compliance issues and he confirmed that he does have his medications at home. He also has follow-up with speech therapy appointment sometime later on this week but was not sure which day. He has been following up per his report. Blood sugars were fairly well-controlled at the time of discharge on his home insulin regimen. I highly suspect medication noncompliance as he did have a blood sugar of 993 on presentation with decent control after reinitiating his home insulin regimen. Patient reported on presentation that he has been taking his insulin as directed. Patient was able to be discharged home in stable condition with no overall medication changes on 10/07/2023. Discharge diagnoses: DKA-resolved Elevated anion gap metabolic acidosis-resolved Nausea and vomiting-resolved Hyperkalemia-resolved Hypokalemia-resolved Leukocytosis-resolved Chronic microcytic anemia-stable Thrombocytosis-resolved Dysphagia Gastroparesis DM-1 uncontrolled Severe malnutrition History of pericarditis History of pericardial infection secondary to MSSA History of recurrent PE/DVT Depression Medical noncompliance Physical Exam Const alert, oriented x3 and no apparent distress; Negative for average body habitus, healthy appearing or well nourished Constitutional Narrative: Cachectic, young, white male, sitting up in bed watching television, speech therapy at bedside, appears comfortable at this time, nontoxic General Appearance: cooperative, comfortable, well developed and disheveled Orientation / Consciousness: awake, oriented to person, oriented to place and oriented to time Exam Limitations: no limitations Nutritional Appearance: thin HEENT normocephalic, head/scalp atraumatic, hearing grossly normal bilaterally and moist oral mucous membranes HEENT Narrative: Dentition is poor for age, Mallampati is 1, no thrush Eyes PERRL and EOMs intact bilaterally; Negative for conjunctivae normal Eyes Narrative: Conjunctiva are mildly pale bilaterally, no scleral icterus Neck no lymphadenopathy and supple Neck Narrative: Trachea midline Resp normal respiratory effort, no retractions, no use of accessory muscles and clear to auscultation bilaterally Auscultation: Negative for crackles, rhonchi or wheezes Cardio regular rate, regular rhythm, S1 normal heart sound, S2 normal heart sound, no murmurs, no rub, no gallops and no clicks Cardio Narrative: Tachycardia has resolved GI normal to inspection, nondistended, normoactive bowel sounds, soft to palpation and non-tender GI Narrative: Scaphoid abdomen Extremity no clubbing, cyanosis or edema Extremity Narrative: 2+ pedal pulses, decreased lean muscle mass Skin no rashes or lesions noted, no wounds, skin turgor normal and no jaundice Neuro oriented x3, CN's II-XII intact bilaterally, moves all extremities and no focal motor deficits Speech: speech normal Psych Psych Narrative: Affect is flattened mood seems depressed however more interactive today Weight / BMI Weight Weight: 85.7 kg Body Mass Index (BMI) 25.5 ABG / Lab / Microbiology Data 10/07/23 05:35 10/07/23 05:35 Laboratory: Laboratory Results - last 24 hr 10/06/23 09:08: POC Glucose 160 H 10/06/23 11:12: POC Glucose 163 H 10/06/23 12:20: POC Glucose 229 H 10/06/23 16:41: POC Glucose 62 L 10/06/23 17:22: POC Glucose 113 H 10/06/23 20:26: POC Glucose 227 H 10/07/23 05:35: WBC 4.7, RBC 4.14 L, Hgb 8.4 L, Hct 27.7 L, MCV 66.9 L, MCH 20.3 L, MCHC 30.3 L, RDW Std Deviation 41.1, RDW Coeff of Rabia 17.3 H, Plt Count 355, MPV 9.3, Immature Gran % (Auto) 0.200, Neut % (Auto) 59.1, Lymph % (Auto) 31.8, [place] % (Auto) 6.8, Eos % (Auto) 1.5, Baso % (Auto) 0.6, Absolute Neuts (auto) 2.8, Absolute Lymphs (auto) 1.49, Nucleated RBC % 0, Sodium 141, Potassium 2.8 L , Chloride 112 H, Carbon Dioxide 22.0, Anion Gap 7, BUN 11, Creatinine 0.92, Estim Creat Clear Calc 138.24, Est GFR (MDRD) Af Amer 132, Est GFR (MDRD) Non-Af 109, BUN/Creatinine Ratio 12.0, Glucose 88, Calcium 8.3 L, Phosphorus 2.1 L, Magnesium 1.7, Total Bilirubin 0.40, AST 12 L, ALT 15 L, Alkaline Phosphatase 107, Total Protein 5.8 L, Albumin 2.9 L, Globulin 2.9, Albumin/Globulin Ratio 1.0 10/07/23 08:20: POC Glucose 111 H D/C Instructions Discharge Diet: 2200 Calorie Control Diet Discharge Activity: Return to Normal Activity Return to work on: 10/08/23 Meaningful Use Info Meaningful Use Diagnoses (Choose all that apply): None applicable Discharge Plan Admission Admit Date/Time: 10/05/23 15:24 Primary Reason for Your Visit: Diabetic ketoacidosis Attending Provider: Elizabeth Alvarez Primary Care Provider: Mario Reyes Consulting Providers: Radha Randolph Discharge Orders/Prescriptions Prescriptions: Continued insulin lispro [Humalog KwikPen Insulin] 100 unit/mL insulin pen See Protocol subcut [facility] Protocol: 1. Sliding Scale Insulin Low Dosing Condition: 150-224 mg/dl = 1 unit Condition: 225-299 mg/dl = 2 units Condition: 300-374 mg/dl = 3 units Condition: 375-499 mg/dl = 4 units Condition: Greater than 449 call physician Protocol Text: - Use for Total Daily Dose of Insulin 15-27 units - Thin, elderly, renal patients LOW DOSING ALGORITHM (DME) OneTouch Verio test strips Strip See Rx Instructions .ROUTE .MEDSUPPLY Rx Instructions: 4x/day (DME) pen needle, diabetic [BD Ultra-Fine Lorin Pen Needle] 32 gauge x 5/32 n eedle See Rx Instructions .ROUTE .MEDSUPPLY Rx Instructions: As directed (DME) FreeStyle Niru 14 Day Sensor Kit See Rx Instructions .ROUTE .MEDSUPPLY Rx Instructions: As directed potassium chloride 20 mEq tablet,ER particles/crystals 40 meq PO DAILY Patient Comments: TAKE 1 TABLET BY MOUTH TWICE DAILY WITH MEALS Xarelto 20 mg Tablet 20 mg PO DINNER Qty: 30 0RF mirtazapine 15 mg Tablet 7.5 mg PO BID 30 Days Qty: 30 0RF pantoprazole [Protonix] 40 mg tablet,delayed release (DR/EC) 40 mg PO BID 30 Days Qty: 60 0RF metoclopramide HCl [Reglan] 10 mg tablet 10 mg PO Q6H 30 Days Qty: 120 0RF insulin lispro 100 unit/mL insulin pen 25 unit subcut TIDAC Rx Instructions: Hold if glucose less than 130 mg/dl insulin glargine [Lantus Solostar U-100 Insulin] 100 unit/mL (3 mL) insulin pen 35 unit SUBCUT BID Rx Instructions: Hold if glucose less than 130 mg/dl Referrals / Follow Up: Mario Reyes MD [Primary Care Provider] - Within 2 Weeks Disposition Disposition (needs filled in before D/C Order can be placed): Home, Self Care Charges/Coding Visit Charges Inpatient E&M: 13975 Disch Hosp >30min
[2023-10-07] MEDS: Insulin Lispro 100 UNIT/ML INSULN.PEN 25 UNIT SC (11:25)
[2023-10-07] MEDS: Insulin Lispro 100 UNIT/ML INSULN.PEN SC (11:25)
[2023-10-07 11:29] LABS: Bedside Glucose 291 mg/dL (74-106)
[2023-10-07] MEDS: 0.9% Saline Lock 10 ML Syringe IV (13:17)
[2023-10-07 14:16] LABS: VBG Bicarbonate 3 mmol/L (22-26)
[2023-10-07 15:22] VITALS: BP 111/63; PULSE 92; RESP 16; TEMP 36.6; O2SAT 96
[2023-10-07 15:34] LABS: Glucose 80 mg/dL (74-106)
[2023-10-07 15:38] LABS: Bedside Glucose 38 mg/dL (74-106)
[2023-10-07 15:38] LABS: Bedside Glucose 73 mg/dL (74-106)
[2023-10-07] MEDS: Rivaroxaban 20 MG Tablet PO (17:43)
== END 2023-10-07 17:52 | disposition home or self-care (01) | DRG 420 ==
LOC: ED 14:22 → ICU 16:17 → MS3 10-06 21:36
PROVIDERS: Admitting Provider Internal Medicine; Emergency Provider Emergency Medicine; PCP Internal Medicine; Visit Provider Internal Medicine
DX: E10.10 Type 1 diabetes mellitus with ketoacidosis without coma (principal); E43 Unspecified severe protein-calorie malnutrition; B37.81 Candidal esophagitis; E10.43 Type 1 diabetes mellitus with diabetic autonomic (poly)neuropathy; Z79.4 Long term (current) use of insulin; D50.9 Iron deficiency anemia, unspecified; F32.A Depression, unspecified; K31.84 Gastroparesis; Z68.25 Body mass index [BMI] 25.0-25.9, adult; Z91.148 Patient's other noncompliance with medication regimen for other reason; Z79.01 Long term (current) use of anticoagulants; Z79.899 Other long term (current) drug therapy; Z86.79 Personal history of other diseases of the circulatory system; Z86.14 Personal history of Methicillin resistant Staphylococcus aureus infection; Z86.711 Personal history of pulmonary embolism; Z86.718 Personal history of other venous thrombosis and embolism
CPT/HCPCS: 36415; 71045; 80048; 80053; 82009; 82803; 82947; 82962; 83735; 84100; 85025; 92507; 92526; 92610; 93005; 99285; J7030; J7040; J7050; J7120; A4216; J2405; J2916; J7799

== ENCOUNTER 2023-10-17 10:30 | Outpatient (RCR) | payer MEDICAID, SELFPAY ==
--- NOTE | 2023-10-01 10:51 | ST ---
[facility] Speech Pathology [address] [place] [address] Modified Barium Swallow Study MR#: [id number] Acct: [id number] Name: SHIRA CARLTON Rep #: [id number] : 2000 22 From: Melissa Whiteside M.A., [facility]ECONOMICS TEACHER Modified Barium Swallow Patient Information Study Date: 09/19/23 Study Time: 13:15 Direct Billable Minutes: 79 Total Minutes procedure & reportin Diagnosis: Hyperglycemia, Severe malnutrition, Dysphagia Referring Physician: Radha Randolph Reason for Referral: Objectively assess swallow function, assess risk for aspiration, and determine recommendations for least restrictive diet textures and compensatory strategies to improve safety of swallow. Medical History: Shira Carlton is a 22 M with PMH of PE, poorly controlled type 1 DM with multiple episodes of DKA , pericardial infection with effusion s/p pericardial window in 2021, asthma, DVT, GERD, severe protein calorie malnutrition. He presented to [facility] ED 2022 for nausea and vomiting. He was admitted to ICU for DKA. Due to coughing with food and drink, he was referred for ST consult. Due to coughing during BSE on regular textures and thin liquids, the patient was recommended for MBSS to assess ECONOMICS TEACHER concern's for aspiration. MBSS on 09/17/2023 revealed severe oropharyngeal dysphagia with SILENT aspiration of thin, nectar, and pudding. He was made NPO and recommended for GI consult due to tight upper esophageal sphincter. EGD 09/18/2023 revealed LA Grade D erosive esophagitis with bleeding, candidiasis, benign-appearing esophageal stenosis - dilated. ECONOMICS TEACHER is repeating MBSS today to determine if the patient is safe for diet advancement. Current Diet Ordered: NPO with ice chips with SpO2 monitored Dentition: WNL Mental Status: WNL Respiratory Status: Oxygenating on Room Air Penetration-Aspiration Scale Penetration-Aspiration Scale: OBJECTIVE ASSESSMENT OF SWALLOW FUNCTION (QUANTITATIVE ? PER TRIAL): PENETRATION / ASPIRATION SCALE (ARROYO): 1 = does not enter airway 2 = enters airway/above vocal folds/ejected 3 = enters airway/above vocal folds/not ejected 4 = enters airway/contacts vocal folds/ejected 5 = enters airway/contacts vocal folds/not ejected 6 = enters airway/below vocal folds/ejected 7 = enters airway/below vocal folds/not ejected despite effort 8 = enters airway/below vocal folds/no effort VIDEOFLOROSCOPIC SCALE SCORE (ARROYO): Grade I = aspiration of material that has penetrated into the laryngeal vestibule, intact cough reflex Grade II = aspiration < 10 % of the bolus, intact cough reflex Grade III = aspiration of < 10 % of the bolus, reduced cough reflex or aspiration of > 10 % of the bolus, intact cough reflex Grade IV = aspiration of > 10 % of the bolus, reduced cough reflex Penetration-Aspiration Scale Score Thin Liquid via teaspoon: Result: 1= does not enter airway Thin Liquid via teaspoon Trial 2: Result: 1= does not enter airway Thin Liquid via small single sip: cup: Result: 2= enter airway/above vocal folds/ejected Thin Liquid via sequential sips: cup: Result: 2= enter airway/above vocal folds/ejected [place] Thick Liquid via small single sip: cup: Result: 2= enter airway/above vocal folds/ejected Pudding via teaspoon: Result: 1= does not enter airway Cookie: Result: 1= does not enter airway Thin Liquid via single sip: straw: Result: 8= enters airway/below vocal folds/no effort Thin Liquid via small single sip: cup Trial 2: Result: 1= does not enter airway Thin Liquid via small single sip: cup Trial 3: Result: 1= does not enter airway Oral Phase Labial Seal: No Labial Escape Tongue Control During Bolus Hold: Posterior escape of less than half of bolus Bolus Preparation/Mastication: Timely and efficient chewing and mashing Bolus Transport/Lingual Motion: Delayed initiation of tongue motion Oral Residue: Trace residue lining oral structures Pharyngeal Phase Initiation of Pharyngeal Swallow: Bolus head in pyriforms Soft Palate Elevation: Trace column of contrast/air between soft palate and pharyngeal wall Laryngeal Elevation: Partial superior movement thyroid cart/partial apprx aryt-epig petiole Anterior Hyoid Excursion: Partial anterior movement Epiglottic Movement: Complete inversion Laryngeal Vestibule Closure at Height of Swallow: Complete; no air/contrast in laryngeal vestibule Pharyngeal Stripping Wave: Present - complete Pharyngoesophageal Segment Opening: Complete distension and complete duration; no obstruction of flow Tongue Base Retraction: Narrow column of contrast between tongue base & post. pharyngeal wall Pharyngeal Residue: Trace residue within or on pharyngeal structures Esophageal Phase Esophageal Clearance: Complete clearance Diagnosis/Impression Diagnosis: Mild oropharyngeal phase dysphagia R13.12 Impression: The oral phase is primarily marked by... -Min premature posterior loss of <1/2 the thin liquid bolus to the pyriform sinuses prior to swallow onset. -Mildly delayed tongue motion for A-P transport. The pharyngeal phase is primarily marked by... -Mildly decreased airway closure due to decreased anterior hyoid excursion and laryngeal elevation. -Mildly decreased tongue base retraction, but only trace pharyngeal residues after the swallow, which greatly improved from the previous study. -He did present with silent aspiration of thin liquids via straw. Trace laryngeal penetration with full ejection of thin and nectar/mildly thick liquids by cup. Overall, the patient's swallow function is greatly improved from previous MBSS on 09/17/2023. Recommendations Diet: Regular Textures and Thin Liquids Compensatory Strategies: Small Bites, Small Sips, No Straws, Slow Rate, Sitting upright and Remain sitting upright for 30 minutes after PO intake Supervision: Distant Supervision Recommend Repeat Modified Barium Swallow: TBD Need for Skilled Speech Therapy Services: Yes Comment: Monitor diet tolerance, educate in strategies to decrease aspiration risk, and continue oropharyngeal exercise program. Education Completed: 1. Described result of evaluation. and 7. Pt requires further education on strategies & risks. Status Active ST Patient: Active Contact Information [facility] Speech Therapy:: Melissa Whiteside M.A. CCC-ECONOMICS TEACHER Speech-Language Pathologist [address] [address] [email or web address] [phone] 09/19/23 1433 <Electronically signed by Melissa Whiteside M.A., CCC-ECONOMICS TEACHER> Date/Time Melissa Whiteside M.A., CCC-ECONOMICS TEACHER Co-Signature Required for all Medicare patients Date/Time Co-Signature CC: ~
--- NOTE | 2023-10-01 11:08 | HP.SP.EVAL ---
History History Date of Eval: 09/28/23 Attending Doctor: Referring Doctor: Reason for Referral: ORAL PHARYNGEAL DYSPHAGIA/RX HERE Medical Diagnosis (from RX): dysphagia Previous speech therapy: Yes Results: during hospital stay Other Relevant Medical History/Diagnoses/Surgery: knee, heart surgery x2 - due to fluid on his heart Pt is currently unemployed and lives with his aunt, grandmother and mom. Medications related to this diagnosis: blood thinner, insulin, potassium, antibiotics Smoking Status: Never smoker Hx Smoking: No Hx Tobacco Use: No Pain Is pain an issue with your current prescribed condition?: No Personal Preferred language: Greek Patient Allergies Allergies Allergies: Allergies vancomycin Allergy (Verified 09/15/23 14:59) local rash/hives to IV site Subjective Dysphagia Symptoms Reported Symptoms/Problems with: Coughing, Choking, Difficulty Swallowing Solids, Difficulty Swallowing Liquids, Pain on Swallowing and Food gets stuck Current Diet Solids Current Diet: Regular Current Diet Liquids Current Liquids: Thin Objective Dysphagia Administered by Administered by: Self Thin Liquids Administred via: Cup and Straw Bolus clearance: fully cleared Gagging: Yes Cough: immediate Pharyngeal phase: suspect pharyngeal deficits and laryngeal elevation mildly restricted slow initiation Patient Report: Pt trialed thin via a straw and reported pain with swallowing. Straw trial was followed by an immediate cough x1. When coached to take small sips out of an open cup, pt did not show s/s of aspiration or report discomfort. Soft & Bite sized (Mechanical) Administered via: Spoon Oral Transit: Delay > 5 seconds Bolus clearance: some clearance/residue Gagging: No Cough: none observed/unable to assess Patient Report: Pt trialed small bites of peaches. Min residue was cleared by a liquid wash. Pt reports sticking to softer foods at home due to difficulty. Regular Oral Preparation: WNL Oral Transit: Delay > 5 seconds Bolus clearance: some clearance/residue Gagging: No Cough: throat clear Pharyngeal phase: laryngeal elevation mildly restricted slow initiation Patient Report: Pt reports susan doone trials feeling stuck in his throat and pain with bolus trials. Mod residue require multiple liquid washes to clear. Swallowing Impairment Contributing Factors to Swallowing Impairment: Reduced Oral Strength/Coordination/Sensation and Reduced Laryngeal Excursion Impact Impact on Safety & Functioning: Risk for Aspiration and Risk for Inadequate Nutrition/Hydration Recommendations Modified Barium Swallow/Cookie Swallow Recommended: No Swallowing Treatment: Yes Diet Texture Recommendations Solids: Soft & Bite sized (Level 6, Chopped) Liquids: Thin (Level 0) Safety Saftey Precautions/Swallowing Recommendations (Check all that Apply): Reduce Distractions and Needs Verbal Cues to Use Recommended Strategies Results Swallowing Within Normal Limits: No Swallowing Diagnosis: Oropharyngeal Phase Dysphagia (R13.12) Severity: Mild Objective Oral Motor Oral Status Dentition: Missing Teeth and Decay Labial Impairment: WNL Closure: WNL Pucker: WNL Retraction: WNL Alternating Pucker/Retraction: WNL Involuntary Movement noted: Yes Lingual Impairment: Mild Protrusion: WFL Retraction: WFL Lateralization: WFL Involuntary Movement: Yes Jaw Impairment: WNL Opening: WNL Closing: WNL Involuntary Movement: Yes Respiratory Status Respiratory Status: Room Air Modified Barium Results Hx If Applicable Enter into a NOTE MBS Report Entered: Yes MBS Results (from prior exam): 10/01/23 10:51 Speech Therapy by Melissa Pizano [facility] Speech Pathology [address] [place] [address] Modified Barium Swallow Study MR#: [id number] Acct: [id number] Name: SHIRA CARLTON Rep #: [id number] : 2000 22 From: Melissa Whiteside M.A., [facility]-LEAD RADIOLOGIC TECHNOLOGIST Modified Barium Swallow Patient Information Study Date: 09/19/23 Study Time: 13:15 Direct Billable Minutes: 79 Total Minutes procedure & reportin Diagnosis: Hyperglycemia, Severe malnutrition, Dysphagia Referring Physician: Radha Randolph Reason for Referral: Objectively assess swallow function, assess risk for aspiration, and determine recommendations for least restrictive diet textures and compensatory strategies to improve safety of swallow. Medical History: Shira Carlton is a 22 M with PMH of PE, poorly controlled type 1 DM with multiple episodes of DKA , pericardial infection with effusion s/p pericardial window in 2021, asthma, DVT, GERD, severe protein calorie malnutrition. He presented to [facility] 2022 for nausea and vomiting. He was admitted to ICU for DKA. Due to coughing with food and drink, he was referred for ST consult. Due to coughing during BSE on regular textures and thin liquids, the patient was recommended for MBSS to assess LEAD RADIOLOGIC TECHNOLOGIST concern's for aspiration. MBSS on 09/17/2023 revealed severe oropharyngeal dysphagia with SILENT aspiration of thin, nectar, and pudding. He was made NPO and recommended for GI consult due to tight upper esophageal sphincter. EGD 09/18/2023 revealed LA Grade D erosive esophagitis with bleeding, candidiasis, benign-appearing esophageal stenosis - dilated. LEAD RADIOLOGIC TECHNOLOGIST is repeating MBSS today to determine if the patient is safe for diet advancement. Current Diet Ordered: NPO with ice chips with SpO2 monitored Dentition: WNL Mental Status: WNL Respiratory Status: Oxygenating on Room Air Penetration-Aspiration Scale Penetration-Aspiration Scale: OBJECTIVE ASSESSMENT OF SWALLOW FUNCTION (QUANTITATIVE ? PER TRIAL): PENETRATION / ASPIRATION SCALE (ARROYO): 1 = does not enter airway 2 = enters airway/above vocal folds/ejected 3 = enters airway/above vocal folds/not ejected 4 = enters airway/contacts vocal folds/ejected 5 = enters airway/contacts vocal folds/not ejected 6 = enters airway/below vocal folds/ejected 7 = enters airway/below vocal folds/not ejected despite effort 8 = enters airway/below vocal folds/no effort VIDEOFLOROSCOPIC SCALE SCORE (ARROYO): Grade I = aspiration of material that has penetrated into the laryngeal vestibule, intact cough reflex Grade II = aspiration < 10 % of the bolus, intact cough reflex Grade III = aspiration of < 10 % of the bolus, reduced cough reflex or aspiration of > 10 % of the bolus, intact cough reflex Grade IV = aspiration of > 10 % of the bolus, reduced cough reflex Penetration-Aspiration Scale Score Thin Liquid via teaspoon: Result: 1= does not enter airway Thin Liquid via teaspoon Trial 2: Result: 1= does not enter airway Thin Liquid via small single sip: cup: Result: 2= enter airway/above vocal folds/ejected Thin Liquid via sequential sips: cup: Result: 2= enter airway/above vocal folds/ejected [place] Thick Liquid via small single sip: cup: Result: 2= enter airway/above vocal folds/ejected Pudding via teaspoon: Result: 1= does not enter airway Cookie: Result: 1= does not enter airway Thin Liquid via single sip: straw: Result: 8= enters airway/below vocal folds/no effort Thin Liquid via small single sip: cup Trial 2: Result: 1= does not enter airway Thin Liquid via small single sip: cup Trial 3: Result: 1= does not enter airway Oral Phase Labial Seal: No Labial Escape Tongue Control During Bolus Hold: Posterior escape of less than half of bolus Bolus Preparation/Mastication: Timely and efficient chewing and mashing Bolus Transport/Lingual Motion: Delayed initiation of tongue motion Oral Residue: Trace residue lining oral structures Pharyngeal Phase Initiation of Pharyngeal Swallow: Bolus head in pyriforms Soft Palate Elevation: Trace column of contrast/air between soft palate and pharyngeal wall Laryngeal Elevation: Partial superior movement thyroid cart/partial apprx aryt-epig petiole Anterior Hyoid Excursion: Partial anterior movement Epiglottic Movement: Complete inversion Laryngeal Vestibule Closure at Height of Swallow: Complete; no air/contrast in laryngeal vestibule Pharyngeal Stripping Wave: Present - complete Pharyngoesophageal Segment Opening: Complete distension and complete duration; no obstruction of flow Tongue Base Retraction: Narrow column of contrast between tongue base & post. pharyngeal wall Pharyngeal Residue: Trace residue within or on pharyngeal structures Esophageal Phase Esophageal Clearance: Complete clearance Diagnosis/Impression Diagnosis: Mild oropharyngeal phase dysphagia R13.12 Impression: The oral phase is primarily marked by... -Min premature posterior loss of <1/2 the thin liquid bolus to the pyriform sinuses prior to swallow onset. -Mildly delayed tongue motion for A-P transport. The pharyngeal phase is primarily marked by... -Mildly decreased airway closure due to decreased anterior hyoid excursion and laryngeal elevation. -Mildly decreased tongue base retraction, but only trace pharyngeal residues after the swallow, which greatly improved from the previous study. -He did present with silent aspiration of thin liquids via straw. Trace laryngeal penetration with full ejection of thin and nectar/mildly thick liquids by cup. Overall, the patient's swallow function is greatly improved from previous MBSS on 09/17/2023. Recommendations Diet: Regular Textures and Thin Liquids Compensatory Strategies: Small Bites, Small Sips, No Straws, Slow Rate, Sitting upright and Remain sitting upright for 30 minutes after PO intake Supervision: Distant Supervision Recommend Repeat Modified Barium Swallow: TBD Need for Skilled Speech Therapy Services: Yes Comment: Monitor diet tolerance, educate in strategies to decrease aspiration risk, and continue oropharyngeal exercise program. Education Completed: 1. Described result of evaluation. and 7. Pt requires further education on strategies & risks. Status Active ST Patient: Active Contact Information [facility] Speech Therapy:: Melissa Whiteside M.A. [facility]-LEAD RADIOLOGIC TECHNOLOGIST Speech-Language Pathologist [facility] [address] [place] [address] [email or web address] [phone] 09/19/23 1433 <Electronically signed by Melissa Whiteside M.A., CCC-LEAD RADIOLOGIC TECHNOLOGIST> Date/Time Melissa Whiteside M.A., CCC-LEAD RADIOLOGIC TECHNOLOGIST Co-Signature Required for all Medicare patients Date/Time Co-Signature CC: ~ Initialized on 10/01/23 10:51 - END OF NOTE Swallowing Performance Scale Swallowing Performance Scale Swallowing Performance Scale Result: 4 Mild to Moderate Reference: Neuro-QoL instrument Radiation Oncology Patient Plan Plan Plan: Will recommend Pt for skilled outpatient tx to address deficits in oropharyngeal dysphagia. Pt would benefit from training and education re: diet tolerance checks, compensatory strategies and swallowing exercises to aid in oropharyngeal strengthening. Without skilled intervention, Pt is at risk for consuming a restrictive diet putting her at risk for aspiration pneumonia and atrophy of laryngeal musculature. Recommendations MBS: No Treatment Warranted: Yes Treatment Warranted: Dysphagia Progress Prognosis: Excellent Frequency Frequency: 1x/Week Duration: 3 Months Goals that are Established Determination:: Goals will be added/modified as deemed necessary and appropriate. Therapy will be discontinued when results of re-evaluation indicate therapy is no longer needed or lack of progress has been documented. Goal #1-5 Goal #1: Pt will utilize compensatory strategies (alt sips and bites, small bites, tongue sweep) and tolerate least restrictive diet with no overt s/s of aspiration/penetration to aid in safe consumption of solid/liquids independently during bolus trials given up to min cues during measured sessions. Goal #2: Pt will complete oropharyngeal exercises for 10 reps, 3x/day independently to improve tongue base retraction, PES opening/distention, and hyolaryngeal elevation and excursion as measured by pt & caregiver compliance reports over 3 sessions. Goal #3: Pt will utilize compensatory strategies re: small sips + bites, slow rate, minimized distractions, sitting upright for 60 minutes after meal at home and adhere to diet modifications given min cues during 3 sessions as measured by scores of all 3?s on self or caregiver checklist (Graded on a scale of 1-4; 0= doesn't use strategies despite max cues, 4 = independently uses strategies). Education Patient has Indicated that the Following Identified Educational Needs: None The Patient has indicated that they have no educational or learning abilities that may effect their care.: Yes Patient Instruction Patient Education: Diagnosis, Treatment Plan, Goals and Home Exercise Program Person Taught: Patient and Family Teaching Method: Discussion, Demonstration and Handout Response to teaching: Verbalize understanding
--- NOTE | 2024-01-17 13:17 | HP.SP.DC_ITS ---
ST Discharge Summary Discharged: Discharge: Pt was seen for a swallowing evaluation at [facility] on 09/28/23 s/p dysphagia. Pt attended 3 additional session to target oropharyngeal strengthening, diet tolerance, implementation of compensatory strategies. Pt is being discharged on this date, 01/16/24, due to no additional sessions between scheduled/attended following the last visit. Thank you for letting me participate in your plan of care. Will reevaluate at Pt?s request following script from physician.
== END 2023-10-17 19:00 | disposition home or self-care (01) ==
LOC: SP 10:30
PROVIDERS: PCP Internal Medicine; Referring Provider Internal Medicine; Visit Provider Internal Medicine
DX: R13.13 Dysphagia, pharyngeal phase (principal)
CPT/HCPCS: 92526; 92610

== ENCOUNTER 2023-10-25 23:17 | Emergency (ER) | payer MEDICAID, SELFPAY ==
[2023-10-25 23:19] VITALS: BP 112/69; PULSE 80; RESP 17; TEMP 36.4; O2SAT 100; BMI 28.7
[2023-10-25 23:56] LABS: Bedside Glucose 108 mg/dL (74-106)
--- NOTE | 2023-10-25 23:56 | EDS_ITS ---
HPI History of Present Illness Chief Complaint: Hypoglycemia Informant: patient and EMS Narrative Narrative: Brought by EMS for altered mental status and hypoglycemia. Lives with grandmother, sugars found to be 34 was given 1 mg IM glucagon. He is brought to ED. Longtime insulin-dependent diabetic. He states on Lantus 35 units twice daily he is on a sliding scale insulin. He said for sure he took his insulin at lunch unclear if he took it at dinnertime. He knows his less than 10 units. He did eat dinner. Denies cough denies vomiting diarrhea denies urinary symptoms. Multiple ED visits for DKA. He states there is no adjustments in his insulin. [facility] Medical History Anemia due to chronic illness Anticoagulant long-term use Anxiety AP window (aortopulmonary window) Asthma Minerva esophagitis Depression Diabetes mellitus type 1 DVT (deep venous thrombosis) femur surgery Gastroparesis GERD (gastroesophageal reflux disease) History of medication noncompliance Hypokalemia Hypokalemia Kidney disease [place] grade D esophagitis Lower extremity edema Nausea and vomiting Non-smoker Noncompliance Noncompliance with diabetes treatment Nonhealing surgical wound Psychosocial problem Recurrent pulmonary embolism Severe protein-calorie malnutrition Sinus tachycardia seen on quality assurance monitor chassis Type 1 diabetes Ulcer of leg, chronic Wound of left lower extremity Home Medications insulin lispro 100 unit/mL subcutaneous pen (Humalog KwikPen (U-100) Insulin) See Protocol subcut ACHS DM 07/24/22 [History Last Taken 10/05/23] blood sugar diagnostic (OneTouch Verio test strips) 02/27/23 [History Last Taken Unknown] flash glucose sensor (FreeStyle Niru 14 Day Sensor kit) 02/27/23 [History Last Taken Unknown] pen needle, diabetic 32 gauge x 5/32 (BD Ultra-Fine Lorin Pen Needle) 02/27/23 [History Last Taken Unknown] potassium chloride 20 mEq tablet,extended release(part/cryst) 40 meq PO DAILY supplement 08/15/23 [History Last Taken 10/05/23] rivaroxaban 20 mg tablet (Xarelto) 20 mg PO DINNER #30 tabs 09/17/23 [Rx Last Taken 10/05/23] metoclopramide HCl 10 mg tablet (Reglan) 10 mg PO Q6H 30 days #120 tabs 09/20/23 [Rx Last Taken 10/05/23] mirtazapine 15 mg tablet 7.5 mg (1/2 x 15 mg) PO BID 30 days #30 tabs 09/20/23 [Rx Last Taken Unknown] pantoprazole 40 mg tablet,delayed release (Protonix) 40 mg PO BID 30 days #60 tabs 09/20/23 [Rx Last Taken Unknown] insulin glargine 100 unit/mL (3 mL) subcutaneous pen (Lantus Solostar U-100 Insulin) 35 unit subcut BID DIABETES 10/05/23 [History Last Taken 10/05/23] insulin lispro 100 unit/mL subcutaneous pen 25 unit subcut TIDAC DIABETES 10/05/23 [History Last Taken 10/05/23] Allergy/AdvReac Type Severity Reaction Status Date / Time vancomycin Allergy local Verified 10/25/23 23:19 rash/hives to IV site Family History Father Polysubstance overdose Patient father young secondary to OD. Mother Iron deficiency anemia Other Asthma CVA (cerebral vascular accident) Diabetes Hypertension Thyroid disorder Surgical History H/O right knee surgery History of surgery on extremity Hx of knee surgery Social History housing: other details: Lives with his grandmother, aunt and mother. Smoking Status: Never smoker alcohol intake: current alcohol intake frequency: a few times a month substance use type: does not use ROS ROS ED Constitutional Constitutional ED: Denies chills, fever(s) or sweats Eyes Eyes: Denies change in vision ENT ENT ED: Denies dysphagia or sore throat Cardiovascular Cardiovascular: Denies chest pain, leg edema, palpitations or racing heartbeat Respiratory/Chest Respiratory/Chest: Denies cough, dyspnea or dyspnea on exertion Gastrointestinal Gastrointestinal: Denies abdominal pain, diarrhea, nausea or vomiting Genitourinary Genitourinary ED: Denies dysuria, hematuria or urinary frequency Musculoskeletal Musculoskeletal: Denies back pain, extremity pain or neck pain Integumentary Denies rash or wounds Neurologic Neurologic: Denies headache(s), paresthesias or weakness EXAM Physical Exam Const Vital Signs: 10/25/23 23:19 10/25/23 23:23 10/26/23 01:30 Temperature 97.5 F L Temperature Source Oral Pulse Rate 80 87 Respiratory Rate 17 16 Respiratory Effort Normal Non-Labored Respiratory Pattern Normal Blood Pressure 112/69 111/64 Blood Pressure Mean 83 79 Pulse Ox 100 100 Oxygen Delivery Method Room Air 10/26/23 03:00 Temperature Temperature Source Pulse Rate 77 Respiratory Rate 14 Respiratory Effort Respiratory Pattern Blood Pressure 117/68 Blood Pressure Mean 84 Pulse Ox 100 Oxygen Delivery Method Positive well nourished and well developed Constitutional Narrative: Mildly somnolent however awakens to commands and answer questions. Nontoxic. General Appearance ED: well developed HEENT Reports moist mucous membranes normocephalic and atraumatic Eyes PERRL, EOMs intact bilaterally and conjunctivae normal General Eye ED: Yes normal appearance of both eyes Neck no lymphadenopathy and supple General: Negative for tenderness Chest Wall Chest: Negative for tenderness Resp normal respiratory effort and normal air movement Effort and Inspection: symmetric chest movement; Negative for respiratory distre ss Cardio regular rate, regular rhythm and no murmurs Peripheral Pulses: pulses 2+ throughout GI normal to inspection, nondistended, normoactive bowel sounds and non-tender Palpation: Negative for guarding or rebound tenderness present Back/Spine no CVA tenderness and no thoracic nor lumbar tenderness Extremity normal to inspection General Extremety ED: Negative for edema or tenderness General Extremity: Negative for edema Neuro oriented x3 and no sensory deficits noted Sensorium / Orientation: awake and alert Skin no rashes or lesions noted and no wounds MDM MDM MDM Narrative Medical decision making narrative: Interventions / MDM: Differential diagnosis: Diagnosis considered but do not suspect: N/A My EKG interpretation: N/A Imaging independently reviewed and interpreted by myself: N/A External documents reviewed: N/A Test considered but not ordered:N/A ED course: Blood glucose 108 on arrival. Will feed him with carbohydrate diet juice and sandwich and will monitor his glucose. 0100: Patient awake sitting on the commode. Grandma currently present. States he last took insulin around 4 to 5 PM when he ate little bit of pizza and wings. Unclear exact amount he took. This is now 8 hours ago. He did eat a sandwich. Will check couple glucose series to make sure no downtrending. 0130: Initial blood glucose 104. Will wait for next glucose stick. 0220: Glucose down to 82. He is given additional juice along with macaroni and cheese. Further discussion with the patient, he uses Dial short acting pen. Discussion possibility of higher dosing, he states this is possible. Will c alfreda to trend his glucose. 0315: Recheck glucose 87. Patient awake. Grandmother currently in the room stating she has orange chicken with rice for him at home to eat when he gets back. I offered to keep longer to continue to trend however she feels comfortable taking him home and feeding him. They have a glucose monitor to check. Return precautions. All questions were answered. Re-evaluation: stable Disposition discussed with patient/family/significant other: Patient and grandmother Case discussed with consulting clinician: N/A This note was generated with [employer] software. It may contain incorrect words, spelling, and punctuation that were not noted in checking the note before signing. Lab Data Labs: Laboratory Results - last 24 hr 10/25/23 10/26/23 10/26/23 23:21 01:07 02:12 POC Glucose 108 H 105 82 Discharge Plan Triage Chief Complaint: Hypoglycemia ED Provider: Ross Adair Dx/Rx/DC Orders Clinical Impression: Hypoglycemia due to type 1 diabetes mellitus Instructions: ED Diabetic Insulin Reaction Prescriptions: No Action insulin lispro [Humalog KwikPen Insulin] 100 unit/mL insulin pen See Protocol subcut [facility] Protocol: 1. Sliding Scale Insulin Low Dosing Condition: 150-224 mg/dl = 1 unit Condition: 225-299 mg/dl = 2 units Condition: 300-374 mg/dl = 3 units Condition: 375-499 mg/dl = 4 units Condition: Greater than 449 call physician Protocol Text: - Use for Total Daily Dose of Insulin 15-27 units - Thin, elderly, renal patients LOW DOSING ALGORITHM (DME) OneTouch Verio test strips Strip See Rx Instructions .ROUTE .MEDSUPPLY Rx Instructions: 4x/day (DME) pen needle, diabetic [BD Ultra-Fine Lorin Pen Needle] 32 gauge x 5/32 needle See Rx Instructions .ROUTE .MEDSUPPLY Rx Instructions: As directed (DME) FreeStyle Niru 14 Day Sensor Kit See Rx Instructions .ROUTE .MEDSUPPLY Rx Instructions: As directed potassium chloride 20 mEq tablet,ER particles/crystals 40 meq PO DAILY Patient Comments: TAKE 1 TABLET BY MOUTH TWICE DAILY WITH MEALS Xarelto 20 mg Tablet 20 mg PO DINNER Qty: 30 0RF mirtazapine 15 mg Tablet 7.5 mg PO BID 30 Days Qty: 30 0RF pantoprazole [Protonix] 40 mg tablet,delayed release (DR/EC) 40 mg PO BID 30 Days Qty: 60 0RF metoclopramide HCl [Reglan] 10 mg tablet 10 mg PO Q6H 30 Days Qty: 120 0RF insulin lispro 100 unit/mL insulin pen 25 unit subcut TIDAC Rx Instructions: Hold if glucose less than 130 mg/dl insulin glargine [Lantus Solostar U-100 Insulin] 100 unit/mL (3 mL) insulin pen 35 unit SUBCUT BID Rx Instructions: Hold if glucose less than 130 mg/dl Primary Care Provider: Mario Reyes Referrals: Mario Reyes MD [Primary Care Provider] - 3-5 Days Activity Restrictions/Additional Instructions: Go home and eat your food that is waiting for you. Keep an eye on your glucose. Hold your short acting insulin until your glucose starts coming up. Sliding scale as directed by your doctor. Return if any worsening or recurrent symptoms. Disposition Disposition: Home, Self Care Discharge Date/Time: 10/26/23 03:24
[2023-10-26 01:25] LABS: Bedside Glucose 105 mg/dL (74-106)
[2023-10-26 01:30] VITALS: BP 111/64; PULSE 87; RESP 16; O2SAT 100
[2023-10-26 02:31] LABS: Bedside Glucose 82 mg/dL (74-106)
[2023-10-26 03:00] VITALS: BP 117/68; PULSE 77; RESP 14; O2SAT 100
[2023-10-26 03:23] VITALS: BP 117/68
[2023-10-26 03:32] LABS: Bedside Glucose 87 mg/dL (74-106)
== END 2023-10-26 03:24 | disposition home or self-care (01) ==
PROVIDERS: Emergency Provider Emergency Medicine; PCP Internal Medicine; Visit Provider Emergency Medicine
DX: E10.649 Type 1 diabetes mellitus with hypoglycemia without coma (principal); Z79.4 Long term (current) use of insulin; K21.9 Gastro-esophageal reflux disease without esophagitis; Z79.899 Other long term (current) drug therapy; Z86.718 Personal history of other venous thrombosis and embolism; Z86.711 Personal history of pulmonary embolism
CPT/HCPCS: 82962; 99282

== ENCOUNTER 2023-11-27 11:28 | Inpatient (IN) | payer MEDICAID, SELFPAY ==
[2023-11-27] VITALS (17 sets, daily range): BP systolic 93–116; BP diastolic 44–76; PULSE 115–133; RESP 15–27; TEMP 36.6–37.2; O2SAT 96–100; BMI 28.9; BMI 28.3
[2023-11-27] MEDS: 0.9% Normal Saline (1000mL) 1,000 ML 1000 ML IV (11:47)
--- NOTE | 2023-11-27 11:49 | EX.ED.DYSGE1 ---
HPI History of Present Illness Chief Complaint: Hyperglycemia Detail of Chief Complaint: Nausea and vomiting. I might be in DKA again. Elevated blood sugar. Informant: patient Onset/Context/Timing Onset: Today Context: Gradual Onset Timing: Continuous Current Severity: Moderate Maximum Severity: Moderate Narrative Narrative: 22-year-old male type 1 insulin-dependent diabetic with anemia of chronic disease. States that he had nausea and vomiting days not feeling well. He is concerned he might be in DKA again. He was brought in by the squad and his blood sugar registered greater than 500. He denies any abdominal pain. Denies any diarrhea. No dysuria. No fever. Prior similar symptoms: Yes Recent Illness/Hospitalization: No PFSH PFSH Medical History Anemia due to chronic illness Anticoagulant long-term use Anxiety AP window (aortopulmonary window) Asthma [place]a esophagitis Depression Diabetes mellitus type 1 DVT (deep venous thrombosis) femur surgery Gastroparesis GERD (gastroesophageal reflux disease) History of medication noncompliance Hypokalemia Hypokalemia Kidney disease [place] grade D esophagitis Lower extremity edema Nausea and vomiting Non-smoker Noncompliance Noncompliance with diabetes treatment Nonhealing surgical wound Psychosocial problem Recurrent pulmonary embolism Severe protein-calorie malnutrition Sinus tachycardia seen on cardiac nurse specialist Type 1 diabetes Ulcer of leg, chronic Wound of left lower extremity Home Medications insulin lispro 100 unit/mL subcutaneous pen (Humalog KwikPen (U-100) Insulin) See Protocol subcut ACHS DIABETES 07/24/22 [History Last Taken 10/05/23] blood sugar diagnostic (OneTouch Verio test strips) 02/27/23 [History Last Taken Unknown] flash glucose sensor (FreeStyle Niru 14 Day Sensor kit) 02/27/23 [History Last Taken Unknown] pen needle, diabetic 32 gauge x 5/32 (BD Ultra-Fine Lorin Pen Needle) 02/27/23 [History Last Taken Unknown] potassium chloride 20 mEq tablet,extended release(part/cryst) 40 meq PO DAILY SUPPLEMENT 08/15/23 [History Last Taken 10/05/23] rivaroxaban 20 mg tablet (Xarelto) 20 mg PO DINNER BLOOD THINNER #30 tabs 09/17/23 [Rx Last Taken 10/05/23] metoclopramide HCl 10 mg tablet (Reglan) 10 mg PO Q6H GASTROPARESIS 30 days #120 tabs 09/20/23 [Rx Last Taken 10/05/23] mirtazapine 15 mg tablet 7.5 mg (1/2 x 15 mg) PO BID DEPRESSION 30 days #30 tabs 09/20/23 [Rx Last Taken Unknown] pantoprazole 40 mg tablet,delayed release (Protonix) 40 mg PO BID ACID REFLUX 30 days #60 tabs 09/20/23 [Rx Last Taken Unknown] insulin glargine 100 unit/mL (3 mL) subcutaneous pen (Lantus Solostar U-100 Insulin) 35 unit subcut BID DIABETES 10/05/23 [History Last Taken 10/05/23] insulin lispro 100 unit/mL subcutaneous pen 25 unit subcut TIDAC DIABETES 10/05/23 [History Last Taken 10/05/23] Allergy/AdvReac Type Severity Reaction Status Date / Time vancomycin Allergy local Verified 10/25/23 23:19 rash/hives to IV site Family History Father Polysubstance overdose Patient father young secondary to OD. Mother Iron deficiency anemia Other Asthma CVA (cerebral vascular accident) Diabetes Hypertension Thyroid disorder Surgical History H/O right knee surgery History of surgery on extremity Hx of knee surgery Social History housing: other details: Lives with his grandmother, aunt and mother. Smoking Status: Never smoker alcohol intake: current alcohol intake frequency: a few times a month substance use type: does not use ROS ROS ED ROS Narrative Nausea and vomiting. Review of Systems ROS Unobtainable: Denies due to encephalopathy Constitutional Constitutional ED: Denies chills or fever(s) Eyes Eyes: Denies blurry vision ENT ENT ED: Denies ear pain Cardiovascular Cardiovascular: Denies chest pain Respiratory/Chest Respiratory/Chest: Denies cough or dyspnea Gastrointestinal Gastrointestinal: Reports nausea and vomiting; Denies abdominal pain, constipation, diarrhea or melena Genitourinary Genitourinary ED: Denies dysuria or hematuria Musculoskeletal Musculoskeletal: Denies arthralgias Integumentary Denies abscess Neurologic Neurologic: Denies headache(s) Psychiatric Psychiatric: Denies anxiety or depression Endocrine Endocrinology: Denies cold intolerance Hematologic/Lymphatic Hematologic/Lymphatic: Reports anemia Allergic/Immunologic Allergic/Immunologic ED: Denies mouth swelling, tongue swelling or urticaria EXAM Physical Exam Narrative Exam Narrative: 22-year-old male vital signs stable afebrile. Pulse ox 97% on room air no signs hypoxia. H EENT exam pupils round react to light. No signs of trauma. Dry mucous membranes. Neck nontender no JVD. No lymphadenopathy. No meningismus. Lungs clear to auscultation bilaterally. Heart regular rhythm rate about 80 no murmur. Chest wall and ribs nontender. Abdomen soft nontender. Nondistended normal bowel sounds no peritoneal signs. Moving all 4 extremities. 5 of 5 electric power superintendent strength. Dorsi plantarflexion intact. Nontender no edema. Back nontender. Neurologically is awake alert. Answering questions following commands. Normal strength. Const Vital Signs: 11/27/23 11:28 11/27/23 11:48 11/27/23 11:48 Temperature 98.4 F Temperature Source Temporal Pulse Rate 133 H Respiratory Rate 16 27 H Respiratory Pattern Tachypnea Blood Pressure 113/52 L 101/51 L Blood Pressure Mean 72 67 Pulse Ox 97 100 Oxygen Delivery Method Room Air Room Air 11/27/23 13:10 Temperature 97.8 F Temperature Source Pulse Rate 126 H Respiratory Rate 20 H Respiratory Pattern Blood Pressure 93/44 L Blood Pressure Mean 60 Pulse Ox 98 Oxygen Delivery Method Positive well nourished and well developed; Negative for obese, cachectic, contractures or unkempt General Appearance ED: well developed and pallor; Negative for unkempt, cachectic, contractures, cyanotic or diaphoretic Nutritional Appearance: Negative for cachectic or obese HEENT Reports dry mucous membranes; Denies moist mucous membranes Negative for trauma or tenderness Mouth ED: Yes dry mucous membranes Mouth: dry mucous membranes Eyes PERRL and EOMs intact bilaterally General Eye ED: Negative for pale conjunctiva or scleral icterus Neck no lymphadenopathy, supple and no JVD General: Negative for tenderness Chest Wall inspection of chest normal and palpation of chest normal Chest: Negative for other Resp normal respiratory effort and clear to auscultation bilaterally Effort and Inspection: Negative for retractions Auscultation: Negative for rales, rhonchi or wheezes Cardio regular rate, regular rhythm, S1 normal heart sound, S2 normal heart sound and no murmurs Palpation: Negative for palpable S3 Rate: Negative for bradycardia or tachycardic Rhythm: Negative for abnormal rhythm GI normal to inspection, nondistended, normoactive bowel sounds, non-tender, non-distended and no masses Inspection: Negative for abdominal distention Auscultation: normoactive bowel sounds Palpation: soft; Negative for tender or guarding Back/Spine no CVA tenderness General Back: Negative for CVA tenderness Cervical Spine: Negative for cervical spine tenderness Thoracic Spine / Upper Back: Negative for thoracic spinal tenderness Lumbar Spine / Lower Back: Negative for lumbar spinal tenderness Extremity normal to inspection General Extremety ED: Negative for edema or tenderness General Extremity: Negative for edema Neuro oriented x3 and CN's II-XII intact bilaterally Sensorium / Orientation: alert; Negative for orientation impaired, lethargic or stuporous Motor Exam: strength 5/5 throughout; Negative for general weakness or strength abnormal Psych mental status grossly normal Appearance: Negative for unkempt Attitude: No agitated Mood & Affect: Negative for depressed, anxious or tearful Skin no rashes or lesions noted and no wounds General Skin Exam: pallor; Negative for jaundice Lesions: No lesion noted Rashes: No rashes noted Trauma: Negative for abrasion Wounds: Negative for wounds noted MDM MDM MDM Narrative Medical decision making narrative: 22-year-old insulin dependent diabetic male with a history of anemia and chronic anticoagulation due to DVT. Has had nausea and vomiting this morning with elevated blood sugar reading greater than 500 by squad. Rule out DKA. IV fluids times a liter screening labs and acetone level. Zofran for nausea. Repeat exam at 12:50 AM. Patient is in DKA. Will be given a second liter normal saline. Started on insulin drip. Be admitted to the ICU. History & Record Review Discussion w/independent historian: Patient Additional record(s) reviewed:: Prior inpatient record, Prior outpatient record, Prior ED visit and Prior labs Lab Data Attestation: I reviewed the patient's lab results. Lab results narrative: CBC shows no elevated white H&H 11.5 and 37.8 which is higher than his baseline anemia most likely from GI count of 15.8 duration. Platelets 420. Electrolytes show a sodium of 126. Potassium of 5.7. Gap is 35. BUN of 30 and creatinine 2.14 consistent with dehydration. Glucose 999. Acetone large. Labs: Laboratory Results - last 24 hr 11/27/23 11:50 WBC 15.8 H RBC 5.13 Hgb 11.5 L Hct 37.8 L MCV 73.7 L MCH 22.4 L MCHC 30.4 L RDW Std Deviation 44.3 H RDW Coeff of Rabia 16.6 H Plt Count 420 MPV 10.2 Immature Gran % (Auto) 0.500 Neut % (Auto) 83.4 H Lymph % (Auto) 9.1 L [place] % (Auto) 6.1 Eos % (Auto) 0.1 Baso % (Auto) 0.8 Absolute Neuts (auto) 13.1 H Absolute Lymphs (auto) 1.44 Nucleated RBC % 0 Sodium 126 L Potassium 5.7 H Chloride 84 L Carbon Dioxide 7.0 L* Anion Gap 35 H BUN 30 H Creatinine 2.14 H Estim Creat Clear Calc 65.28 Est GFR (MDRD) Af Amer 50 L Est GFR (MDRD) Non-Af 41 L BUN/Creatinine Ratio 14.0 Glucose 999 H* Calcium 9.6 Acetone Level LARGE H Rhythm Strip Rhythm Strip: Sinus Tach Rate: 126 Ectopy: None EKG Initial EKG: Attestation: I personally reviewed and interpreted this EKG as follows: Interpretation: No Acute Injury Pattern and Sinus Tachycardia Comments: Sinus tachycardia rate of 126 no acute signs of NV or ischemia. Incomplete right bundle branch block. Critical Care Time Critical Care Time: Yes Critical care time (excluding procedures): 30-74 minutes, Including time spent:, Discussing w/Patient &/or Family/College Admissions Counselor, Discussing w/Consultants, Arranging Admission or Transfer, Performing Direct Patient Care at Bedside and - (40 minutes.) Discharge Plan Dx/Rx/DC Orders Clinical Impression: Acute kidney injury, Acute dehydration, Diabetic keto-acidosis, Chronic anticoagulation, History of diabetes mellitus, Nausea & vomiting, Acute hyperkalemia Disposition Disposition: [facility] Capacity Legal Mechanic Chief Reflex Medical hold order details:: IF a medical hold is selected below, a suggested order for a MEDICAL HOLD will reflex upon signing the document. Next of kin: [place] law dictates a PRIORITY LIST for identifying legal decision-maker/legal next of kin in the following order (LNOK): 1st: The patient?s legal guardian, if any 2nd: The patient's spouse (if status is questionable, consult Risk Management) 3rd: The patient?s adult child(jaime) (majority, if multiple children) 4th: The patient?s parents 5th: The patient?s adult siblings (majority, if multiple children siblings)
[2023-11-27] MEDS: Ondansetron ODT 4 MG Tablet PO (11:55)
[2023-11-27 12:03] LABS: Absolute Lymphocyte Count 1.44 X10^3/uL (0.83-4.51); Absolute Neutrophil Count 13.1 X10^3/uL (2.0-7.7); Basophil# 0.12 X10^3/uL; Basophil% 0.8 % (0-1); Eosinophil# 0.01 X10^3/uL; Eosinophils% 0.1 % (0-5); Hematocrit 37.8 % (40-54); Hemoglobin 11.5 g/dL (13.0-16.5); Lymphocyte # 1.44 X10^3/ul (0.83-4.51); Lymphocyte % 9.1 % (19-41); Mean Corp Hgb Conc 30.4 g/dL (32-36); Mean Corpuscular Hgb 22.4 pg (27.0-32.0); Mean Corpuscular Volume 73.7 fL (80-94); Mean Platelet Vol. 10.2 fl (6.2-12.0); Monocyte# 0.96 X10^3/uL; Monocyte% 6.1 % (0-10); NRBC Flagged by Analyzer 0 % (0-5); Neutrophil # 13.14 X10^3/uL (2.7-7.7); Neutrophil % 83.4 % (47-70); Platelet Count 420 K/mm3 (150-450); RBC Distribution Width CV 16.6 % (11.6-14.6); RBC Distribution Width SD 44.3 fl (35.1-43.9); Red Blood Count 5.13 M/mm3 (4.6-6.2); White Blood Count 15.8 K/mm3 (4.4-11.0)
[2023-11-27 12:26] LABS: Anion Gap 35 (5-15); BUN 30 mg/dL (7-18); Calcium,Total 9.6 mg/dL (8.5-10.1); Chloride 84 mmol/L (98-107); Creatinine, Serum 2.14 mg/dL (0.70-1.30); EST Glomerular Filtration Rate 41 mL/min (>60); Est Glom Filt Rate - Afr Amer 50 mL/min (>60); Estimated Creatinine Clearance 65.28 ml/min; Glucose 999 mg/dL (74-106); Potassium 5.7 mmol/L (3.5-5.1); Sodium Level 126 mmol/L (136-145)
--- NOTE | 2023-11-27 12:53 | EKG12_ITS ---
Test Reason : DYSRHYTHMIA Blood Pressure : / mmHG Vent. Rate : 126 BPM Atrial Rate : 126 BPM P-R Int : 142 ms QRS Dur : 100 ms QT Int : 324 ms P-R-T Axes : 064 088 054 degrees QTc Int : 469 ms Sinus tachycardia Incomplete right bundle branch block Borderline ECG Confirmed by YANE CASTILLO, ROXANNE ([id number]), videotape editor AYESHA VALLE ([id number]) on 11/28/2023 9:23:25 AM Referred By: Pablo Milton Confirmed By:ROXANNE CHE MD
[2023-11-27] MEDS: 0.9% Normal Saline (1000mL) 1,000 ML 999 ML IV ×2 (13:07)
[2023-11-27] MEDS: Ondansetron 4 MG/2 ML Vial IV (13:08)
--- NOTE | 2023-11-27 13:09 | PCM.HP.STD ---
HPI - General General Date of Admission: 11/27/23 Date of Service: 11/27/23 Chief Complaint: Abdominal pain/nausea/vomiting HPI Narrative SHIRA STEPHENSON, is a 22 M who presented to the emergency department [facility] on 11/27/2023 with abdominal pain, nausea, and vomiting. Patient reported it started on the morning of admission and on presentation he felt that he could be in DKA again. He was brought in by the squad and his blood sugar registered at greater than 500 via EMS. He had no diarrhea, dysuria, or fever. He does complain of his mouth being severely dry and stated he was fine until this morning. He reports that he is compliant with his insulin. Vital signs on presentation showed temperature of 97.8, heart rate was 133, blood pressure was 101/51, respiratory rate was 27 and oxygen saturation was 100% on room air. CBC shows leukocytosis with a white count of 15.8, hemoglobin of 11.5 and normal platelet count however he is likely hemoconcentrated. Chemistry panel was markedly abnormal with a sodium of 126 however corrected sodium for glucose is 148. Potassium was 5.7 serum bicarb was 7 with an anion gap of 35. His BUN was 30 and his serum creatinine is 2.14. Glucose was 999. Acetone level was large and ABG is pending. The emergency department he was given 3 L of IV fluids and started on insulin drip and as well was given Zofran x 2. [facility] Medical History Anemia due to chronic illness Anticoagulant long-term use Anxiety AP window (aortopulmonary window) Asthma Minerva esophagitis Depression Diabetes mellitus type 1 DVT (deep venous thrombosis) femur surgery Gastroparesis GERD (gastroesophageal reflux disease) History of medication noncompliance Hypokalemia Hypokalemia Kidney disease Hoskins grade D esophagitis Lower extremity edema Nausea and vomiting Non-smoker Noncompliance Noncompliance with diabetes treatment Nonhealing surgical wound Psychosocial problem Recurrent pulmonary embolism Severe protein-calorie malnutrition Sinus tachycardia seen on electronic device monitor Type 1 diabetes Ulcer of leg, chronic Wound of left lower extremity Home Medications insulin lispro 100 unit/mL subcutaneous pen (Humalog KwikPen (U-100) Insulin) See Protocol subcut ACHS DIABETES 07/24/22 [History Last Taken 10/05/23] blood sugar diagnostic (OneTouch Verio test strips) 02/27/23 [History Last Taken Unknown] flash glucose sensor (FreeStyle Niru 14 Day Sensor kit) 02/27/23 [History Last Taken Unknown] pen needle, diabetic 32 gauge x 5/32 (BD Ultra-Fine [place] Pen Needle) 02/27/23 [History Last Taken Unknown] potassium chloride 20 mEq tablet,extended release(part/cryst) 40 meq PO DAILY SUPPLEMENT 08/15/23 [History Last Taken 10/05/23] rivaroxaban 20 mg tablet (Xarelto) 20 mg PO DINNER BLOOD THINNER #30 tabs 09/17/23 [Rx Last Taken 10/05/23] metoclopramide HCl 10 mg tablet (Reglan) 10 mg PO Q6H GASTROPARESIS 30 days #120 tabs 09/20/23 [Rx Last Taken 10/05/23] mirtazapine 15 mg tablet 7.5 mg (1/2 x 15 mg) PO BID DEPRESSION 30 days #30 tabs 09/20/23 [Rx Last Taken Unknown] pantoprazole 40 mg tablet,delayed release (Protonix) 40 mg PO BID ACID REFLUX 30 days #60 tabs 09/20/23 [Rx Last Taken Unknown] insulin glargine 100 unit/mL (3 mL) subcutaneous pen (Lantus Solostar U-100 Insulin) 35 unit subcut BID DIABETES 10/05/23 [History Last Taken 10/05/23] insulin lispro 100 unit/mL subcutaneous pen 25 unit subcut TIDAC DIABETES 10/05/23 [History Last Taken 10/05/23] Allergy/AdvReac Type Severity Reaction Status Date / Time vancomycin Allergy local Verified 10/25/23 23:19 rash/hives to IV site Family History Father Polysubstance overdose Patient father young secondary to OD. Mother Iron deficiency anemia Other Asthma CVA (cerebral vascular accident) Diabetes Hypertension Thyroid disorder Surgical History H/O right knee surgery History of surgery on extremity Hx of knee surgery Social History housing: other details: Lives with his grandmother, aunt and mother. Smoking Status: Never smoker alcohol intake: current alcohol intake frequency: a few times a month substance use type: does not use ROS Constitutional Constitutional: Reports malaise and weakness; Denies anorexia, change in weight, chills, fatigue, fever(s), night sweats or other Eyes Eyes: Denies blurry vision, change in eye color, change in vision, discharge from eye(s), double vision, erythema, eye pain, loss of vision or other ENT HEENT: Denies abnormal hearing, dysphagia, ear pain, epistaxis, headache(s), hearing loss, nasal congestion, nasal discharge, post nasal drip, sinus pressure, sore throat or other Cardiovascular Cardiovascular: Reports rapid heart rate; Denies chest pain, claudication, dyspnea on exertion, edema, lightheadedness, orthopnea, palpitations, paroxysmal nocturnal dyspnea, syncope or other Respiratory/Chest Respiratory/Chest: Reports shortness of breath at rest and shortness of breath with exertion; Denies cough, dyspnea, excessive phlegm production, hemoptysis, productive cough, wheezing or other Gastrointestinal Gastrointestinal: Reports abdominal pain, nausea and vomiting; Denies coffee ground emesis, constipation, diarrhea, dyspepsia, hematemesis, hematochezia, loose stools, melena or other Genitourinary Genitourinary: Denies burning urination, difficulty urinating, dysuria, hematuria, nocturia, urinary frequency, urinary hesitancy, urinary incontinence, urinary urgency or other Musculoskeletal Musculoskeletal: Denies arthralgias, back pain, joint pain, joint stiffness, joint swelling, myalgias, neck pain or other Neurologic Neurologic: Denies abnormal gait, abnormal speech, confusion, disequilibrium, dizziness, focal weakness, headache(s), numbness, paresthesias, seizure-like activity, seizures, syncope, tingling, tremor(s) or other Psychiatric Psychiatric: Denies anxiety, depression, homicidal ideation, suicidal ideation or other Endocrine Endocrinology: Denies change in body appearance, cold intolerance, excessive sweating, heat intolerance, polydipsia, polyuria or other Hematologic/Lymphatic Hematologic/Lymphatic: Denies anemia, easy bleeding, easy bruising, lymphadenopathy or other Allergic/Immunologic Allergic/Immunologic: Denies rhinitis, hives, eczemia, asthma or other Vital Signs Vital Signs Vital Signs: 11/27/23 11:28 11/27/23 11:48 11/27/23 11:48 Temperature 98.4 F Temperature Source Temporal Pulse Rate 133 H Respiratory Rate 16 27 H Respiratory Pattern Tachypnea Blood Pressure 113/52 L 101/51 L Blood Pressure Mean 72 67 Pulse Ox 97 100 Oxygen Delivery Method Room Air Room Air Weight Weight: 96.7 kg Body Mass Index (BMI) 28.9 Physical Exam Const alert, oriented x3 and no apparent distress; Negative for average body habitus, healthy appearing or well nourished Constitutional Narrative: Young, cachectic appearing, white male, lying in bed, appears ill but nontoxic, currently appears comfortable General Appearance: cooperative HEENT normocephalic, head/scalp atraumatic and hearing grossly normal bilaterally; Negative for moist oral mucous membranes or oropharynx normal HEENT Narrative: Dentition is poor, Mallampati is 1, mucous membranes are extremely dry Eyes PERRL and EOMs intact bilaterally Eyes Narrative: Conjunctiva are pale bilaterally Neck no lymphadenopathy and supple Neck Narrative: Trachea midline, no thyroid enlargement Resp No normal respiratory effort, no retractions, no use of accessory muscles and clear to auscultation bilaterally Resp Narrative: Tachypneic but no signs of respiratory extremis Auscultation: Negative for rales, rhonchi or wheezes Cardio regular rhythm, S1 normal heart sound, S2 normal heart sound, no murmurs, no rub, no gallops, no clicks and no JVD Cardio Narrative: Tachycardic GI normal to inspection, nondistended, normoactive bowel sounds, soft to palpation and non-tender GI Narrative: Scaphoid abdomen Extremity no clubbing, cyanosis or edema Extremity Narrative: Pedal pulses are 2+ Skin No skin turgor normal, no jaundice, no petechiae and no mottling Skin Narrative: Lateral aspect of bilateral feet right greater than left with erythema but no tenderness-appears to be ecchymotic in nature Neuro oriented x3, CN's II-XII intact bilaterally, moves all extremities and no focal motor deficits Speech: speech normal Psych Psych Narrative: Affect is flat Results Lab / Micro Data 11/27/23 11:50 11/27/23 11:50 Labs: Laboratory Results - last 24 hr 11/27/23 11:50: WBC 15.8 H, RBC 5.13, Hgb 11.5 L, Hct 37.8 L, MCV 73.7 L, MCH 22.4 L, MCHC 30.4 L, RDW Std Deviation 44.3 H, RDW Coeff of Rabia 16.6 H, Plt Count 420, MPV 10.2, Immature Gran % (Auto) 0.500, Neut % (Auto) 83.4 H, Lymph % (Auto) 9.1 L, [place] % (Auto) 6.1, Eos % (Auto) 0.1, Baso % (Auto) 0.8, Absolute Neuts (auto) 13.1 H, Absolute Lymphs (auto) 1.44, Nucleated RBC % 0, Sodium 126 L, Potassium 5.7 H, Chloride 84 L, Carbon Dioxide 7.0 L*, Anion Gap 35 H, BUN 30 H, Creatinine 2.14 H, Estim Creat Clear Calc 65.28, Est GFR (MDRD) Af Amer 50 L, Est GFR (MDRD) Non-Af 41 L, BUN/Creatinine Ratio 14.0, Glucose 999 H*, Calcium 9.6, Acetone Level LARGE H Assessment & Plan Assessment/Plan (1) Acute hyperkalemia: (2) Nausea & vomiting: (3) Diabetic keto-acidosis: (4) Acute kidney injury: (5) Acute dehydration: (6) Leukocytosis: (7) Tachycardia: (8) High anion gap metabolic acidosis: PLAN: Plan DKA -Patient well-known here and seen frequently due to noncompliance -Blood sugar on presentation was 999 with large acetone and an anion gap of 35 with a serum bicarb of 7 -IV fluids as ordered per DKA protocol -Insulin drip per protocol -N.p.o. -Check ABG -Check serial BMP, magnesium, phosphorus -Hold subcu insulin -Once serum bicarb is improved and gap is closed we will transition to subcu insulin and start p.o. diet Abdominal pain/nausea/vomiting -Secondary to the above -Patient also has known history of gastroparesis so we will continue Reglan IV -As needed antiemetics -Aggressive hydration RADHA secondary to severe dehydration -Serum creatinine is 2.14 on admission -Baseline serum creatinine is 0.9-1.2 -Aggressive IV fluids per DKA order set -Avoid nephrotoxins as able -Anticipate that RADHA should resolve quickly with administration of IV fluids Hyperkalemia -Secondary to acidosis -Should improve as acidosis resolves and patient will likely end up hypokalemic and require replacement -Hold home oral supplementation for now -Q4 hour BMP Tachycardia -Due to severe hide dehydration and acidosis -Should resolve with fluid administration and improvement of acidosis Leukocytosis -No signs of acute infection -Appears to be consistent with hemoconcentration as all lines are higher than baseline -Repeat lab in a.m. Pseudohyponatremia -Corrected sodium for glucose is 148 -Should resolve with hydration and improvement in blood glucose level -Serial BMPs ordered Chronic microcytic anemia -Patient appears to have some iron deficiency based on previous labs -counts higher than baseline due to hemoconcentration -baseline appears to run 8-9.5 -EGD done last hospitalization and he does have severe esophagitis with what appeared to be candidiasis related esophagitis and this was treated Dysphagia -Patient has been working with speech therapy--> remains on modified diet and will need to continue that once p.o. diet can be initiated -On EGD 09/18/23 was found to have severe grade D erosive esophagitis with bleeding and esophageal candidiasis -Continue PPI twice daily will give IV for now -Speech therapy consulted Gastroparesis secondary to longstanding history of poorly controlled diabetes -Cont Reglan IV and transition to po once able DM-1 uncontrolled -Patient noncompliant does not follow regularly with anyone for his diabetes -A1c was obtained on 08/15/2023 and was 11.5 in the setting of anemia -Again, discussed the deleterious effects of long-term uncontrolled blood sugars -Patient with frequent DKA admissions Severe malnutrition -Supplements to be initiated when p.o. diet can be started -Dietitian consultation History of pericarditis/pericardial infection -At the end of 2021 he was admitted to [facility] and found to have MSSA in his pericardial fluid -no current issues History of PE/DVT -Continue Xarelto-->anticipate rapid correction with IVF so no adjustment needed unless sCr doesn't correct quickly Depression -Mirtazapine on hold for now due to lower blood pressures and risk for today's and will reach per. DVT prophylaxis -Cont Xarelto-->anticipate CODE STATUS -Full code *CCT >35 min without procedures* Charges/Coding Procedures Hospitalists Procedures: 89664 Critical Care 1st Hr
--- NOTE | 2023-11-27 13:16 | NURSING ---
ICU ANTONINA DKA, DEHYDRATION, RADHA
[2023-11-27] MEDS: Insulin Lispro 100 UNIT in 0.9% Normal Saline (100mL Bag) 99 ML 9.69999999999999929 UNIT CONT INF (13:32)
[2023-11-27 13:33] LABS: Magnesium 2.5 mg/dL (1.6-2.6)
[2023-11-27 13:34] LABS: Phosphorus 8.9 mg/dL (2.5-4.9)
[2023-11-27 13:55] LABS: Allen Test Positive; Base Excess -26 mmol/L (-2 to +2); Bicarbonate 3.4 mmol/L (22-26); Blood Gas Specimen Type ART; Mode Not entered; O2 Delivery Device Not entered; PO2 63 mmHG (75-100); SITE L Radial; SO2 85 % (95-99); Time Given 13:53:18; Total Carbon Dioxide < 5 mmol/L; pCO2 10.5 mmHg (35-45); pH 7.12 (7.35-7.45)
[2023-11-27 14:40] LABS: Bedside Glucose > 500 mg/dL (74-106)
[2023-11-27] MEDS: 0.9% Normal Saline (1000mL) 1,000 ML 500 ML IV ×3 (15:13→18:58)
[2023-11-27 15:17] LABS: Anion Gap 32 (5-15); BUN 32 mg/dL (7-18); BUN/Creat Ratio 16.1 RATIO (10-20); Calcium,Total 8.1 mg/dL (8.5-10.1); Chloride 96 mmol/L (98-107); Creatinine, Serum 1.99 mg/dL (0.70-1.30); EST Glomerular Filtration Rate 45 mL/min (>60); Est Glom Filt Rate - Afr Amer 54 mL/min (>60); Estimated Creatinine Clearance 71.61 ml/min; Glucose 829 mg/dL (74-106); Potassium 5.3 mmol/L (3.5-5.1); Sodium Level 132 mmol/L (136-145)
[2023-11-27 16:35] LABS: Bedside Glucose > 500 mg/dL (74-106)
[2023-11-27] MEDS: Rivaroxaban 20 MG Tablet PO (17:02)
[2023-11-27 17:22] LABS: Bedside Glucose 456 mg/dL (74-106)
[2023-11-27 18:24] LABS: Bedside Glucose 370 mg/dL (74-106)
[2023-11-27 18:28] LABS: Anion Gap 20 (5-15); BUN 30 mg/dL (7-18); BUN/Creat Ratio 16.4 RATIO (10-20); Calcium,Total 8.6 mg/dL (8.5-10.1); Chloride 105 mmol/L (98-107); Creatinine, Serum 1.83 mg/dL (0.70-1.30); EST Glomerular Filtration Rate 49 mL/min (>60); Est Glom Filt Rate - Afr Amer 59 mL/min (>60); Estimated Creatinine Clearance 77.87 ml/min; Glucose 393 mg/dL (74-106); Magnesium 2.3 mg/dL (1.6-2.6); Phosphorus 3.6 mg/dL (2.5-4.9); Potassium 4.5 mmol/L (3.5-5.1); Sodium Level 138 mmol/L (136-145)
[2023-11-27 19:17] LABS: Bedside Glucose 321 mg/dL (74-106)
[2023-11-27 20:26] LABS: Bedside Glucose 268 mg/dL (74-106)
[2023-11-27] MEDS: Pantoprazole Sodium 40 MG in 0.9% Normal Saline (100mL MB+) 100 ML 330 MG IV (21:23)
[2023-11-27] MEDS: 0.9% Normal Saline (250mL Bag) 250 ML 15 ML IV (21:24)
[2023-11-27] MEDS: proCHLORPERazine 10 MG/2 ML Vial 5 MG IV (21:26)
[2023-11-27] MEDS: 0.9% Saline Lock 10 ML Syringe IV ×2 (21:26→22:06)
[2023-11-27] MEDS: KCL 20MEQ in D5.45NS 20 MEQ/1,000 ML IV.SOLN. 150 MEQ IV (21:30)
[2023-11-27] MEDS: Metoclopramide 10 MG/2 ML Vial 5 MG IV (22:06)
[2023-11-27 22:31] LABS: Bedside Glucose 221 mg/dL (74-106)
[2023-11-27 22:31] LABS: Bedside Glucose 236 mg/dL (74-106)
[2023-11-27 22:49] LABS: Anion Gap 13 (5-15); BUN 27 mg/dL (7-18); BUN/Creat Ratio 16.1 RATIO (10-20); Calcium,Total 8.1 mg/dL (8.5-10.1); Chloride 111 mmol/L (98-107); Creatinine, Serum 1.68 mg/dL (0.70-1.30); EST Glomerular Filtration Rate 54 mL/min (>60); Est Glom Filt Rate - Afr Amer 66 mL/min (>60); Estimated Creatinine Clearance 84.82 ml/min; Glucose 277 mg/dL (74-106); Magnesium 1.9 mg/dL (1.6-2.6); Phosphorus 2.9 mg/dL (2.5-4.9); Potassium 3.5 mmol/L (3.5-5.1); Sodium Level 142 mmol/L (136-145)
[2023-11-27 23:23] LABS: Bedside Glucose 225 mg/dL (74-106)
[2023-11-28] VITALS (22 sets, daily range): BP systolic 89–122; BP diastolic 44–84; PULSE 86–124; RESP 12–18; TEMP 36.6–37.1; O2SAT 97–100; BMI 26.4
[2023-11-28 00:34] LABS: Bedside Glucose 205 mg/dL (74-106)
[2023-11-28 01:29] LABS: Bedside Glucose 210 mg/dL (74-106)
[2023-11-28 02:19] LABS: Bedside Glucose 185 mg/dL (74-106)
[2023-11-28 02:27] LABS: Anion Gap 6 (5-15); BUN 25 mg/dL (7-18); BUN/Creat Ratio 16.8 RATIO (10-20); Calcium,Total 8.1 mg/dL (8.5-10.1); Chloride 115 mmol/L (98-107); Creatinine, Serum 1.49 mg/dL (0.70-1.30); EST Glomerular Filtration Rate 62 mL/min (>60); Est Glom Filt Rate - Afr Amer 75 mL/min (>60); Estimated Creatinine Clearance 95.64 ml/min; Glucose 205 mg/dL (74-106); Magnesium 1.9 mg/dL (1.6-2.6); Phosphorus 2.3 mg/dL (2.5-4.9); Potassium 3.4 mmol/L (3.5-5.1); Sodium Level 145 mmol/L (136-145)
[2023-11-28 03:28] LABS: Bedside Glucose 152 mg/dL (74-106)
[2023-11-28] MEDS: 0.9% Saline Lock 10 ML Syringe IV ×3 (04:25→13:53)
[2023-11-28] MEDS: KCL 20MEQ in D5.45NS 20 MEQ/1,000 ML IV.SOLN. 150 MEQ IV (04:26)
[2023-11-28] MEDS: Metoclopramide 10 MG/2 ML Vial 5 MG IV ×2 (06:00→22:24)
[2023-11-28] MEDS: Potassium Phosphate 30 MM in 0.9% Normal Saline (250mL Bag) 250 ML 42 MM IV (06:01)
[2023-11-28 06:17] LABS: Absolute Lymphocyte Count 1.27 X10^3/uL (0.83-4.51); Absolute Neutrophil Count 6.6 X10^3/uL (2.0-7.7); Basophil# 0.03 X10^3/uL; Basophil% 0.3 % (0-1); Eosinophil# 0.04 X10^3/uL; Eosinophils% 0.5 % (0-5); Lymphocyte # 1.27 X10^3/ul (0.83-4.51); Lymphocyte % 14.4 % (19-41); Mean Corp Hgb Conc 33.3 g/dL (32-36); Mean Corpuscular Hgb 23.1 pg (27.0-32.0); Mean Corpuscular Volume 69.2 fL (80-94); Mean Platelet Vol. 9.1 fl (6.2-12.0); Monocyte# 0.85 X10^3/uL; Monocyte% 9.6 % (0-10); NRBC Flagged by Analyzer 0 % (0-5); Neutrophil # 6.62 X10^3/uL (2.7-7.7); Neutrophil % 74.9 % (47-70); Platelet Count 307 K/mm3 (150-450); RBC Distribution Width CV 18.4 % (11.6-14.6); RBC Distribution Width SD 45.4 fl (35.1-43.9); White Blood Count 8.8 K/mm3 (4.4-11.0)
[2023-11-28 06:35] LABS: ALB/GLOB Ratio 1.1 RATIO (0.9-2.4); AST(SGOT) 9 U/L (15-37); Alanine Aminotransfer ALT/SGPT 19 U/L (16-61); Albumin, Serum 3.2 g/dL (3.2-5.0); Alkaline Phosphatase 98 U/L (45-117); Anion Gap 3 (5-15); BUN 20 mg/dL (7-18); BUN/Creat Ratio 15.5 RATIO (10-20); Chloride 117 mmol/L (98-107); Creatinine, Serum 1.29 mg/dL (0.70-1.30); EST Glomerular Filtration Rate 73 mL/min (>60); Est Glom Filt Rate - Afr Amer 89 mL/min (>60); Estimated Creatinine Clearance 101.51 ml/min; Globulin 2.9 g/dL (2.2-4.2); Glucose 111 mg/dL (74-106); Magnesium 1.8 mg/dL (1.6-2.6); Phosphorus 1.8 mg/dL (2.5-4.9); Potassium 3.2 mmol/L (3.5-5.1); Protein, Total 6.1 g/dL (6.4-8.2); Sodium Level 145 mmol/L (136-145)
[2023-11-28 07:06] LABS: Bedside Glucose 129 mg/dL (74-106)
[2023-11-28 08:18] LABS: Bedside Glucose 102 mg/dL (74-106)
[2023-11-28 08:18] LABS: Bedside Glucose 111 mg/dL (74-106)
[2023-11-28 08:18] LABS: Bedside Glucose 137 mg/dL (74-106)
[2023-11-28] MEDS: Insulin Glargine-YFGN 100 UNIT/ML Pen 30 UNIT SC ×2 (09:41→22:23)
[2023-11-28 09:42] LABS: Bedside Glucose 145 mg/dL (74-106)
[2023-11-28 11:33] LABS: Bedside Glucose 203 mg/dL (74-106)
--- NOTE | 2023-11-28 13:00 | CASEMGMT ---
VERONA FONTANEZ Face to Face with patient for initial transition planning/care coordination assessment. VERONA FONTANEZ introduced self and role at [facility]. Patient lying in bed, alert and oriented. Patient willing to participate in assessment and is able to answer all questions appropriately. Care providers, pharmacy, and demographics verified. Patient wishes to discharge home, denies need for home health at this time. Patient states he has no further needs or concerns at this time. CM to follow for discharge planning needs that may arise. PCP: [place] Specialists: Mandi, bowling floor desk clerk; [facility] Preferred Pharmacy: [facility] Insurance: [employer] Prescription Benefit:yes Living Will/HPOA: yes, grandmother Ines LNOK: grandmother, mother Living Arrangements: Patient lives with grandmother and family in a 2 story home. Patient is now on the first floor setup with grandmother. Patient states he is independent with ADLs, grandmother helps manage medications. Transportation: grandmother, [place], [facility] Van DME/HHC: Patient has cane, walker, and glucomter. Patient state he has no testing supplies and that it was too soon to fill prescription for CGM sensor. Hospitalist called [facility] and confirmed that patient has CGM sensor refill and was processed and ready for pickup. VERONA FONTANEZ updated patient. Patient voiced understanding to follow up with PCP and bowling floor desk clerk. Disposition Plan: Patient to discharge home with family support and follow-up plans in place. Joana MONTEZ, RN, CM
[2023-11-28] MEDS: Pantoprazole Sodium 40 MG in 0.9% Normal Saline (100mL MB+) 100 ML 330 MG IV ×2 (13:10→22:17)
[2023-11-28] MEDS: Insulin Lispro 100 UNIT/ML INSULN.PEN SC ×2 (16:39→22:23)
[2023-11-28] MEDS: Rivaroxaban 20 MG Tablet PO (16:39)
[2023-11-28 16:51] LABS: Bedside Glucose 153 mg/dL (74-106)
[2023-11-28 16:51] LABS: Bedside Glucose 101 mg/dL (74-106)
--- NOTE | 2023-11-28 18:07 | DCINST_ITS ---
Discharge Instructions Diet Discharge Diet: 2200 Calorie Control Diet Activity Discharge Activity: Return to Normal Activity Weight Bearing Status: Full weight bearing Follow Up Care Test Results: Test results from this visit will be discussed in further detail at your follow- up appointment, if applicable. Discharge Plan Admission Admit Date/Time: 11/27/23 13:01 Primary Reason for Your Visit: DKA Attending Provider: Satish Be Primary Care Provider: Mario Reyes Consulting Providers: Elizabeth Alvarez Discharge Orders/Prescriptions Prescriptions: Continued insulin lispro [Humalog KwikPen Insulin] 100 unit/mL insulin pen See Protocol subcut ACHS Protocol: 6. Sliding Scale Insulin Custom Condition: mg/dl range Dose/Route: Number of Units Condition: 150-199 Dose/Route: 2 Condition: 200-249 Dose/Route: 4 Condition: 250-299 Dose/Route: 6 Condition: 300-349 Dose/Route: 8 Condition: 350-399 Dose/Route: 10 Condition: 400-449 Dose/Route: 12 Condition: 450-499 Dose/Route: 14 Condition: 500> Instruction: CALL PCP Protocol Text: Custom Sliding Scale (DME) OneTouch Verio test strips Strip See Rx Instructions .ROUTE .MEDSUPPLY Rx Instructions: 4x/day (DME) pen needle, diabetic [BD Ultra-Fine [place] Pen Needle] 32 gauge x 5/32 needle See Rx Instructions .ROUTE .MEDSUPPLY Rx Instructions: As directed (DME) FreeStyle Niru 14 Day Sensor Kit See Rx Instructions .ROUTE .MEDSUPPLY Rx Instructions: As directed potassium chloride 20 mEq tablet,ER particles/crystals 40 meq PO DAILY Xarelto 20 mg Tablet 20 mg PO DINNER Qty: 30 0RF mirtazapine 15 mg Tablet 7.5 mg PO BID 30 Days Qty: 30 0RF pantoprazole [Protonix] 40 mg tablet,delayed release (DR/EC) 40 mg PO BID 30 Days Qty: 60 0RF metoclopramide HCl [Reglan] 10 mg tablet 10 mg PO Q6H 30 Days Qty: 120 0RF insulin lispro 100 unit/mL insulin pen 25 unit subcut TIDAC Rx Instructions: Hold if glucose less than 130 mg/dl insulin glargine [Lantus Solostar U-100 Insulin] 100 unit/mL (3 mL) insulin pen 35 unit SUBCUT BID Rx Instructions: Hold if glucose less than 130 mg/dl Referrals / Follow Up: Mario Reyes MD [Primary Care Provider] - Within 1 Week Disposition Disposition (needs filled in before D/C Order can be placed): Home, Self Care
--- NOTE | 2023-11-28 18:11 | PCM.PN.HOSP ---
Reason for Visit Reason for Visit: Diagnoses Elevated white blood cell count, unspecified (11/27/23) Type 2 diabetes mellitus with ketoacidosis without coma (11/27/23) Dehydration (11/27/23) Other acidosis (11/27/23) Hyperkalemia (11/27/23) Acute kidney failure, unspecified (11/27/23) Tachycardia, unspecified (11/27/23) Nausea with vomiting, unspecified (11/27/23) Subjective Subjective Patient was admitted for diabetic ketoacidosis yesterday, his anion gap closed today, he was unable to get a ride at the time of this dictation to go home. Patient stated he was out of his continuous glucose monitor pods, I called his pharmacy and he does have a refill for it and they are able to fill it and I relayed this to the patient. Patient has been in multiple times with DKA, he is unable to take care of himself and it is likely he will be in again for DKA soon. Objective Data Objective Data Vital Signs: Vital Signs Temp Pulse Resp BP Pulse Ox O2 Del Method 98.0 F 92 15 98/84 H 100 Room Air 11/28/23 16:00 11/28/23 17:00 11/28/23 17:00 11/28/23 17:00 11/28/23 17:00 11/28/23 17:00 Oxygen Delivery Method Room Air Weight: 90.8 kg Body Mass Index (BMI) 26.4 Intake & Output: Intake and Output for Last 24 Hours 11/26/23 11/27/23 11/28/23 23:59 23:59 23:59 Intake Total 6112.54 / 6115.64 3104.56 / 3104.56 Output Total 575 / 575 400 / 400 Balance 5537.54 / 5540.64 2704.56 / 2704.56 Lab / Micro Data 11/28/23 06:10 11/28/23 06:10 Labs: Laboratory Results - last 24 hr 11/27/23 18:02: POC Glucose 370 H 11/27/23 18:05: Sodium 138, Potassium 4.5, Chloride 105, Carbon Dioxide 13.0 L, Anion Gap 20 H, BUN 30 H, Creatinine 1.83 H, Estim Creat Clear Calc 77.87, Est GFR (MDRD) Af Amer 59 L, Est GFR (MDRD) Non-Af 49 L, BUN/Creatinine Ratio 16.4, Glucose 393 H, Calcium 8.6, Phosphorus 3.6, Magnesium 2.3 11/27/23 18:57: POC Glucose 321 H 11/27/23 19:56: POC Glucose 268 H 11/27/23 20:57: POC Glucose 221 H 11/27/23 22:00: Sodium 142, Potassium 3.5, Chloride 111 H, Carbon Dioxide 18.0 L, Anion Gap 13, BUN 27 H, Creatinine 1.68 H, Estim Creat Clear Calc 84.82, Est GFR (MDRD) Af Amer 66, Est GFR (MDRD) Non-Af 54 L, BUN/Creatinine Ratio 16.1, Glucose 277 H, Calcium 8.1 L, Phosphorus 2.9, Magnesium 1.9 11/27/23 22:12: POC Glucose 236 H 11/27/23 23:06: POC Glucose 225 H 11/28/23 00:07: POC Glucose 205 H 11/28/23 01:07: POC Glucose 210 H 11/28/23 01:54: POC Glucose 185 H 11/28/23 02:00: Sodium 145, Potassium 3.4 L, Chloride 115 H, Carbon Dioxide 24.0, Anion Gap 6, BUN 25 H, Creatinine 1.49 H, Estim Creat Clear Calc 95.64, Est GFR (MDRD) Af Amer 75, Est GFR (MDRD) Non-Af 62, BUN/Creatinine Ratio 16.8, Glucose 205 H, Calcium 8.1 L, Phosphorus 2.3 L, Magnesium 1.9 11/28/23 03:08: POC Glucose 152 H 11/28/23 04:23: POC Glucose 137 H 11/28/23 04:30: Acetone Level SMALL H 11/28/23 05:29: POC Glucose 111 H 11/28/23 05:58: POC Glucose 102 11/28/23 06:10: WBC 8.8, RBC 3.90 L, Hgb 9.0 L, Hct 27.0 L, MCV 69.2 L D, MCH 23.1 L, MCHC 33.3 D, RDW Std Deviation 45.4 H, RDW Coeff of Rabia 18.4 H, Plt Count 307, MPV 9.1, Immature Gran % (Auto) 0.300, Neut % (Auto) 74.9 H, Lymph % (Auto) 14.4 L, [place] % (Auto) 9.6, Eos % (Auto) 0.5, Baso % (Auto) 0.3, Absolute Neuts (auto) 6.6, Absolute Lymphs (auto) 1.27, Nucleated RBC % 0, Sodium 145 11/28/23 06:10: Sodium Cancelled, Potassium 3.2 L 11/28/23 06:10: Potassium Cancelled, Chloride 117 H 11/28/23 06:10: Chloride Cancelled, Carbon Dioxide 25.0 11/28/23 06:10: Carbon Dioxide Cancelled, Anion Gap 3 L 11/28/23 06:10: Anion Gap Cancelled, BUN 20 H 11/28/23 06:10: BUN Cancelled, Creatinine 1.29 11/28/23 06:10: Creatinine Cancelled, Estim Creat Clear Calc 101.51 11/28/23 06:10: Estim Creat Clear Calc Cancelled, Est GFR (MDRD) Af Amer 89 11/28/23 06:10: Est GFR (MDRD) Af Amer Cancelled, Est GFR (MDRD) Non-Af 73 11/28/23 06:10: Est GFR (MDRD) Non-Af Cancelled, BUN/Creatinine Ratio 15.5 11/28/23 06:10: BUN/Creatinine Ratio Cancelled, Glucose 111 H 11/28/23 06:10: Glucose Cancelled, Calcium 8.0 L 11/28/23 06:10: Calcium Cancelled, Phosphorus 1.8 L 11/28/23 06:10: Phosphorus Cancelled, Magnesium 1.8 11/28/23 06:10: Magnesium Cancelled, Total Bilirubin 1.10 H, AST 9 L, ALT 19, Alkaline Phosphatase 98, Total Protein 6.1 L, Albumin 3.2, Globulin 2.9, Albumin/Globulin Ratio 1.1 11/28/23 06:47: POC Glucose 129 H 11/28/23 08:05: POC Glucose 203 H 11/28/23 09:25: POC Glucose 145 H 11/28/23 11:19: POC Glucose 101 11/28/23 16:33: POC Glucose 153 H Micro: Microbiology 11/28/23 00:15 Stool Stool Occult Blood (KATHYA) - Final Rhythm Strip Rhythm Strip: Sinus Tach Rate: 126 Ectopy: None Physical Exam Const alert, oriented x3 and no apparent distress General Appearance: cooperative, well kempt and well developed Orientation / Consciousness: awake, oriented to person, oriented to place and oriented to time HEENT normocephalic, head/scalp atraumatic and moist oral mucous membranes Eyes PERRL, EOMs intact bilaterally and conjunctivae normal Neck supple, no JVD, thyroid normal and no carotid bruits General: trachea midline Resp normal respiratory effort, no retractions, no use of accessory muscles and clear to auscultation bilaterally Auscultation: Negative for rales, rhonchi or wheezes Cardio regular rate, regular rhythm, S1 normal heart sound, S2 normal heart sound, no murmurs, no rub and no gallops GI normal to inspection, nondistended, normoactive bowel sounds, soft to palpation, non-tender and non-distended Extremity no clubbing, cyanosis or edema Skin no rashes or lesions noted General Skin Exam: no breakdown Neuro oriented x3, CN's II-XII intact bilaterally, no focal motor deficits and no sensory deficits noted Sensorium / Orientation: awake and alert Speech: speech normal Psych affect normal Assessment & Plan Assessment/Plan (1) Diabetic keto-acidosis: PLAN: Plan 1. DKA secondary to poorly controlled type 1 diabetes as a result of noncompliance with medical regimen due to lack of understanding of his disease process-patient will be discharged tomorrow if he remains stable, again I feel he has a poor prognosis overall, patient has been multiple times and does not seem to grasp his disease process. #2 chronic anticoagulation-patient remains on Xarelto due to a PE #3 acute kidney injury secondary to severe dehydration from DKA and uncontrolled type 1 diabetes-patient's last creatinine was 1.29 #4 hypokalemia-secondary to DKA from uncontrolled type 1 diabetes, BMP will be rechecked tomorrow Patient does not have malnutrition Total clinical time spent by myself addressing the patient's medical issues, reviewing all of his data, and collaborating with patient's care team: 35 minutes Capacity Legal Jumpbasting Armhole Baster Reflex Medical hold order details:: IF a medical hold is selected below, a suggested order for a MEDICAL HOLD will reflex upon signing the document. Next of kin: [place] law dictates a PRIORITY LIST for identifying legal decision-maker/legal next of kin in the following order (LNOK): 1st: The patient?s legal guardian, if any 2nd: The patient's spouse (if status is questionable, consult Risk Management) 3rd: The patient?s adult child(jaime) (majority, if multiple children) 4th: The patient?s parents 5th: The patient?s adult siblings (majority, if multiple children siblings) Charges/Coding Visit Charges Inpatient E&M: 65530 Subs Hosp L2
[2023-11-28 22:37] LABS: Bedside Glucose 329 mg/dL (74-106)
[2023-11-29 04:53] VITALS: BMI 26.5
[2023-11-29 05:38] VITALS: BP 105/45; PULSE 90; RESP 16; TEMP 37; O2SAT 98
[2023-11-29] MEDS: 0.9% Saline Lock 10 ML Syringe IV (06:35)
[2023-11-29] MEDS: Metoclopramide 10 MG/2 ML Vial 5 MG IV (06:37)
[2023-11-29 07:45] LABS: Bedside Glucose 76 mg/dL (74-106)
[2023-11-29 07:55] VITALS: BP 108/52; PULSE 97; RESP 14; TEMP 36.9; O2SAT 98
[2023-11-29 08:20] LABS: Bedside Glucose 101 mg/dL (74-106)
[2023-11-29 08:37] VITALS: O2SAT 96
[2023-11-29 09:05] LABS: Anion Gap 6 (5-15); BUN 7 mg/dL (7-18); BUN/Creat Ratio 9.4 RATIO (10-20); Calcium,Total 8.7 mg/dL (8.5-10.1); Chloride 109 mmol/L (98-107); Creatinine, Serum 0.74 mg/dL (0.70-1.30); EST Glomerular Filtration Rate 139 mL/min (>60); Est Glom Filt Rate - Afr Amer 168 mL/min (>60); Estimated Creatinine Clearance 176.96 ml/min; Glucose 102 mg/dL (74-106); Potassium 2.9 mmol/L (3.5-5.1); Sodium Level 140 mmol/L (136-145)
--- NOTE | 2023-11-29 09:17 | PCM.DC.SUM ---
Providers Date of Admission: 11/27/23 Date of Discharge: 11/29/23 Primary Care Physician: Dr. Mario Ryees MD Consultations 11/28/23 00:01 Consult: Gastroenterology Routine Consulting Provider: Gwendolyn Gastroenterology Reason for Consult: Coffee Ground Emesis EMERGENT Consult: No MD Notified: Yes Date Notified: 11/28/23 Time Notified: 00:02 Method of Notification: Text Reason For Visit: DKA Diagnosis Discharge Diagnosis (1) Diabetic keto-acidosis: Status: Acute Code(s): E11.10 - Type 2 diabetes mellitus with ketoacidosis without coma Plan 1. DKA secondary to poorly controlled type 1 diabetes as a result of noncompliance with medical regimen due to lack of understanding of his disease process-patient will be discharged tomorrow if he remains stable, again I feel he has a poor prognosis overall, patient has been multiple times and does not seem to grasp his disease process. #2 chronic anticoagulation-patient remains on Xarelto due to a PE #3 acute kidney injury secondary to severe dehydration from DKA and uncontrolled type 1 diabetes-patient's last creatinine was 1.29 #4 hypokalemia-secondary to DKA from uncontrolled type 1 diabetes, BMP will be rechecked tomorrow Patient does not have malnutrition Total clinical time spent by myself addressing the patient's medical issues, reviewing all of his data, and collaborating with patient's care team: 35 minutes Medications at Discharge Home Medications insulin lispro 100 unit/mL subcutaneous pen (Humalog KwikPen (U-100) Insulin) See Protocol subcut ACHS DIABETES 07/24/22 blood sugar diagnostic (OneTouch Verio test strips) 02/27/23 flash glucose sensor (FreeStyle Niru 14 Day Sensor kit) 02/27/23 pen needle, diabetic 32 gauge x 5/32 (BD Ultra-Fine Lorin Pen Needle) 02/27/23 potassium chloride 20 mEq tablet,extended release(part/cryst) 40 meq PO DAILY SUPPLEMENT 08/15/23 rivaroxaban 20 mg tablet (Xarelto) 20 mg PO DINNER BLOOD THINNER #30 tabs 09/17/23 metoclopramide HCl 10 mg tablet (Reglan) 10 mg PO Q6H GASTROPARESIS 30 days #120 tabs 09/20/23 mirtazapine 15 mg tablet 7.5 mg (1/2 x 15 mg) PO BID DEPRESSION 30 days #30 tabs 09/20/23 pantoprazole 40 mg tablet,delayed release (Protonix) 40 mg PO BID ACID REFLUX 30 days #60 tabs 09/20/23 insulin glargine 100 unit/mL (3 mL) subcutaneous pen (Lantus Solostar U-100 Insulin) 35 unit subcut BID DIABETES 10/05/23 insulin lispro 100 unit/mL subcutaneous pen 25 unit subcut TIDAC DIABETES 10/05/23 Hospital Course Operations None Procedures None Summary of Care Provided Minutes Spent on Discharge: 32 Hospital Course: This 22-year-old white male was seen in the emergency room at [facility] with complaints of nausea and vomiting, squad which brought the patient to the emergency room got a blood sugar of 500, patient was noted to be noncompliant type I diabetic and had been in the hospital multiple times for DKA. Workup in the emergency room showed him to have DKA, along with acute kidney injury and hypokalemia, patient was admitted to ICU on insulin drip, he was given potassium supplementation and IV fluids. Patient recovered uneventfully, he was transferred to [place] [id number]. On 11/29/23, patient was seen and examined: On examination he appeared in good health and spirits. Vital signs as documented. Skin warm and dry and without overt rashes. Neck without JVD, neck was supple, trachea midline, thyroid was normal. Lungs clear bilaterally, normal air movement was noted. Heart exam notable for regular rhythm, normal sounds and absence of murmurs, rubs or gallops. Abdomen unremarkable and without evidence of organomegaly, masses, or abdominal aortic enlargement. Bowel sounds are present, abdomen is not distended. Extremities nonedematous, no cyanosis was noted, no clubbing was noted. Neuro: Cranial nerves II through XII are grossly intact, no focal motor deficits were noted, sensation to light touch and pinprick intact, motor exam 5/5 throughout. Psych: Patient is alert and oriented x3, he does not appear anxious or depressed, he does not appear agitated. Patient was discharged home in stable condition on 11/29/2023, the likelihood this patient will be admitted again for DKA as high as he is noncompliant with his medical care at home. A new blood glucose monitor was written for the patient to use due to the fact he had a monitor at home which was not approved by his insurance company and could not obtain strips. Weight / BMI Weight Weight: 90.8 kg Body Mass Index (BMI) 26.5 ABG / Lab / Microbiology Data 11/28/23 06:10 11/29/23 07:54 Laboratory: Laboratory Results - last 24 hr 11/28/23 08:05: POC Glucose 203 H 11/28/23 09:25: POC Glucose 145 H 11/28/23 11:19: POC Glucose 101 11/28/23 16:33: POC Glucose 153 H 11/28/23 22:17: POC Glucose 329 H 11/29/23 07:26: POC Glucose 76 11/29/23 07:52: POC Glucose 101 11/29/23 07:54: Sodium 140, Potassium 2.9 L, Chloride 109 H, Carbon Dioxide 25.0, Anion Gap 6, BUN 7, Creatinine 0.74, Estim Creat Clear Calc 176.96, Est GFR (MDRD) Af Amer 168, Est GFR (MDRD) Non-Af 139, BUN/Creatinine Ratio 9.4 L, Glucose 102, Calcium 8.7 Microbiology: Microbiology 11/28/23 00:15 Stool Stool Occult Blood (KATHYA) - Final D/C Instructions Discharge Diet: 2200 Calorie Control Diet Weight Bearing Status: Full weight bearing Meaningful Use Info Meaningful Use Diagnoses (Choose all that apply): None applicable Discharge Plan Admission Admit Date/Time: 11/27/23 13:01 Primary Reason for Your Visit: DKA Attending Provider: Satish Be Primary Care Provider: Mario Reyes Consulting Providers: Elizabeth Alvarez Discharge Orders/Prescriptions Prescriptions: Continued insulin lispro [Humalog KwikPen Insulin] 100 unit/mL insulin pen See Protocol subcut ACHS Protocol: 6. Sliding Scale Insulin Custom Condition: mg/dl range Dose/Route: Number of Units Condition: 150-199 Dose/Route: 2 Condition: 200-249 Dose/Route: 4 Condition: 250-299 Dose/Route: 6 Condition: 300-349 Dose/Route: 8 Condition: 350-399 Dose/Route: 10 Condition: 400-449 Dose/Route: 12 Condition: 450-499 Dose/Route: 14 Condition: 500> Instruction: CALL PCP Protocol Text: Custom Sliding Scale (DME) OneTouch Verio test strips Strip See Rx Instructions .ROUTE .MEDSUPPLY Rx Instructions: 4x/day (DME) pen needle, diabetic [BD Ultra-Fine Lorin Pen Needle] 32 gauge x needle See Rx Instructions .ROUTE .MEDSUPPLY Rx Instructions: As directed (DME) FreeStyle Niru 14 Day Sensor Kit See Rx Instructions .ROUTE .MEDSUPPLY Rx Instructions: As directed potassium chloride 20 mEq tablet,ER particles/crystals 40 meq PO DAILY Xarelto 20 mg Tablet 20 mg PO DINNER Qty: 30 0RF mirtazapine 15 mg Tablet 7.5 mg PO BID 30 Days Qty: 30 0RF pantoprazole [Protonix] 40 mg tablet,delayed release (DR/EC) 40 mg PO BID 30 Days Qty: 60 0RF metoclopramide HCl [Reglan] 10 mg tablet 10 mg PO Q6H 30 Days Qty: 120 0RF insulin lispro 100 unit/mL insulin pen 25 unit subcut TIDAC Rx Instructions: Hold if glucose less than 130 mg/dl insulin glargine [Lantus Solostar U-100 Insulin] 100 unit/mL (3 mL) insulin pen 35 unit SUBCUT BID Rx Instructions: Hold if glucose less than 130 mg/dl Referrals / Follow Up: Mario Reyes MD [Primary Care Provider] - 12/05/23 1:20 pm Disposition Disposition (needs filled in before D/C Order can be placed): Home, Self Care Charges/Coding Visit Charges Inpatient E&M: 50379 Disch Hosp >30min
--- NOTE | 2023-11-29 09:50 | CASEMGMT ---
Melissa from states that she recommends an outpt modified barium swallow study and to have the pt follow up with his PCP to set this up. This was added to his DC instructions and the pt was updated and states understanding. Pt was also updated that his sensors are ready for pickup. Pt denies further needs at DC and states feeling safe and ready to go home.
--- NOTE | 2023-11-29 10:08 | PHA.DC.MR.R ---
Pharmacy PA Med Reconciliation Pharmacy Service has performed discharge medication reconciliation for this patient. The patient's discharge medication list was reviewed for discrepancies and discrepancies were resolved. Medications at Discharge Home Medications insulin lispro 100 unit/mL subcutaneous pen (Humalog KwikPen (U-100) Insulin) See Protocol subcut ACHS DIABETES 07/24/22 blood sugar diagnostic (OneTouch Verio test strips) 02/27/23 flash glucose sensor (FreeStyle Niru 14 Day Sensor kit) 02/27/23 pen needle, diabetic 32 gauge x 5/32 (BD Ultra-Fine Lorin Pen Needle) 02/27/23 potassium chloride 20 mEq tablet,extended release(part/cryst) 40 meq PO DAILY SUPPLEMENT 08/15/23 rivaroxaban 20 mg tablet (Xarelto) 20 mg PO DINNER BLOOD THINNER #30 tabs 09/17/23 metoclopramide HCl 10 mg tablet (Reglan) 10 mg PO Q6H GASTROPARESIS 30 days #120 tabs 09/20/23 mirtazapine 15 mg tablet 7.5 mg (1/2 x 15 mg) PO BID DEPRESSION 30 days #30 tabs 09/20/23 pantoprazole 40 mg tablet,delayed release (Protonix) 40 mg PO BID ACID REFLUX 30 days #60 tabs 09/20/23 insulin glargine 100 unit/mL (3 mL) subcutaneous pen (Lantus Solostar U-100 Insulin) 35 unit subcut BID DIABETES 10/05/23 insulin lispro 100 unit/mL subcutaneous pen 25 unit subcut TIDAC DIABETES 10/05/23
[2023-11-29] MEDS: Potassium Chloride Oral Tablet 20 MEQ 60 MEQ PO (10:21)
[2023-11-29 10:25] VITALS: BP 123/80; PULSE 89; RESP 14; TEMP 36.4; O2SAT 99
[2023-11-29] MEDS: Insulin Glargine-YFGN 100 UNIT/ML Pen 30 UNIT SC (10:26)
[2023-11-29 16:28] LABS: Bedside Glucose 58 mg/dL (74-106)
== END 2023-11-29 11:22 | disposition home or self-care (01) | DRG 420 ==
LOC: ED 12:53 → ICU 13:31 → MS3 11-28 23:29
PROVIDERS: Internal Medicine; Admitting Provider Internal Medicine; Emergency Provider Emergency Medicine; PCP Internal Medicine; Referring Provider Emergency Medicine; Visit Provider Internal Medicine
DX: E10.10 Type 1 diabetes mellitus with ketoacidosis without coma (principal); N17.8 Other acute kidney failure; K31.84 Gastroparesis; E10.43 Type 1 diabetes mellitus with diabetic autonomic (poly)neuropathy; Z79.4 Long term (current) use of insulin; F32.A Depression, unspecified; D50.9 Iron deficiency anemia, unspecified; K20.80 Other esophagitis without bleeding; E86.0 Dehydration; E87.5 Hyperkalemia; Z91.198 Patient's noncompliance with other medical treatment and regimen for other reason; Z79.01 Long term (current) use of anticoagulants; Z79.899 Other long term (current) drug therapy; Z86.79 Personal history of other diseases of the circulatory system; Z86.711 Personal history of pulmonary embolism; Z86.718 Personal history of other venous thrombosis and embolism
CPT/HCPCS: 36415; 36600; 80048; 80053; 82009; 82274; 82803; 82962; 83735; 84100; 85025; 92610; 93005; 97802; 99285; J7030; J7050; A4216; J2405

== ENCOUNTER 2024-03-12 22:51 | Inpatient (IN) | payer MEDICAID, SELFPAY ==
[2024-03-12 22:55] VITALS: BP 111/57; PULSE 138; RESP 18; TEMP 36.4; O2SAT 99; BMI 27.3
--- NOTE | 2024-03-12 23:10 | EKG12_ITS ---
Test Reason : DKA Blood Pressure : / mmHG Vent. Rate : 130 BPM Atrial Rate : 130 BPM P-R Int : 132 ms QRS Dur : 094 ms QT Int : 324 ms P-R-T Axes : 076 091 054 degrees QTc Int : 476 ms Sinus tachycardia Rightward axis Incomplete right bundle branch block Borderline ECG Confirmed by YANE CASTILLO, ROXANNE ([id number]), commissioning editor BEVERLY FIELDS ([id number]) on 03/13/2024 11:42:55 AM Referred By: Confirmed By:ROXANNE CHE MD
[2024-03-13] VITALS (29 sets, daily range): BP systolic 85–127; BP diastolic 43–87; PULSE 112–144; RESP 13–27; TEMP 36.2–36.6; O2SAT 96–100; BMI 27.1; BMI 27.3
--- NOTE | 2024-03-13 | RAD_ITS ---
INDICATION: sob, vomiting EXAMINATION/TECHNIQUE: X-RAY - XR Chest 2 Views COMPARISON: 10/05/2023 chest radiograph. Findings: Frontal and lateral views of the chest. Low lung volumes. LUNG PARENCHYMA: No acute focal airspace disease or mass lesion. PLEURA: No pleural effusion. No pneumothorax. HEART/GREAT VESSELS: Cardiomediastinal silhouette is unremarkable. BONES: Osseous structures are unremarkable for age. RAD/Chest PA and Lateral IMPRESSION: Chest with no acute disease. Electronically Signed: Todd Lyon MD at 2:24 EDT ,
--- NOTE | 2024-03-13 00:05 | EDS_ITS ---
HPI History of Present Illness Chief Complaint: Hyperglycemia Informant: patient Narrative Narrative: Patient feels like he may be in DKA. He is a type I diabetic, he thinks he forgot to take his insulin today, he thinks he last took it yesterday. Blood sugar 450, vomiting last couple hours, and feels a little short of breath. No cough. [facility] Medical History Acute dehydration Acute hyperkalemia Acute kidney injury Anemia due to chronic illness Anticoagulant long-term use Anxiety AP window (aortopulmonary window) Asthma Minerva esophagitis Depression Diabetes mellitus type 1 Diabetic keto-acidosis DVT (deep venous thrombosis) femur surgery Gastroparesis GERD (gastroesophageal reflux disease) High anion gap metabolic acidosis History of medication noncompliance Hypokalemia Hypokalemia Kidney disease Leukocytosis Stutsman grade D esophagitis Lower extremity edema Nausea & vomiting Nausea and vomiting Non-smoker Noncompliance Noncompliance with diabetes treatment Nonhealing surgical wound Psychosocial problem Recurrent pulmonary embolism Severe protein-calorie malnutrition Sinus tachycardia seen on cardiac care unit nurse Tachycardia Type 1 diabetes Ulcer of leg, chronic Wound of left lower extremity Home Medications insulin lispro 100 unit/mL subcutaneous pen (Humalog KwikPen (U-100) Insulin) See Protocol subcut ACHS DIABETES 07/24/22 [History Last Taken 10/05/23] blood sugar diagnostic (OneTouch Verio test strips) 02/27/23 [History Last Taken Unknown] flash glucose sensor (FreeStyle Niru 14 Day Sensor kit) 02/27/23 [History Last Taken Unknown] pen needle, diabetic 32 gauge x 5/32 (BD Ultra-Fine Lorin Pen Needle) 02/27/23 [History Last Taken Unknown] potassium chloride 20 mEq tablet,extended release(part/cryst) 40 meq PO DAILY SUPPLEMENT 08/15/23 [History Last Taken 10/05/23] rivaroxaban 20 mg tablet (Xarelto) 20 mg PO DINNER BLOOD THINNER #30 tabs 09/17/23 [Rx Last Taken 10/05/23] metoclopramide HCl 10 mg tablet (Reglan) 10 mg PO Q6H GASTROPARESIS 30 days #120 tabs 09/20/23 [Rx Last Taken 10/05/23] mirtazapine 15 mg tablet 7.5 mg (1/2 x 15 mg) PO BID DEPRESSION 30 days #30 tabs 09/20/23 [Rx Last Taken Unknown] pantoprazole 40 mg tablet,delayed release (Protonix) 40 mg PO BID ACID REFLUX 30 days #60 tabs 09/20/23 [Rx Last Taken Unknown] insulin glargine 100 unit/mL (3 mL) subcutaneous pen (Lantus Solostar U-100 Insulin) 35 unit subcut BID DIABETES 10/05/23 [History Last Taken 10/05/23] insulin lispro 100 unit/mL subcutaneous pen 25 unit subcut TIDAC DIABETES 10/05/23 [History Last Taken 10/05/23] Allergy/AdvReac Type Severity Reaction Status Date / Time vancomycin Allergy local Verified 03/12/24 22:58 rash/hives to IV site Family History Father Polysubstance overdose Patient father young secondary to OD. Mother Iron deficiency anemia Other Asthma CVA (cerebral vascular accident) Diabetes Hypertension Thyroid disorder Surgical History H/O right knee surgery History of surgery on extremity Hx of knee surgery Social History housing: other details: Lives with his grandmother, aunt and mother. Smoking Status: Never smoker alcohol intake: current alcohol intake frequency: a few times a month substance use type: does not use ROS ROS ED Constitutional Constitutional ED: Reports fatigue and weakness; Denies chills or fever(s) Eyes Eyes: Denies change in vision or diplopia ENT ENT ED: Denies rhinorrhea or sore throat Cardiovascular Cardiovascular: Denies chest pain or palpitations Respiratory/Chest Respiratory/Chest: Reports dyspnea; Denies cough Gastrointestinal Gastrointestinal: Reports abdominal pain, nausea and vomiting; Denies diarrhea Genitourinary Genitourinary ED: Denies dysuria or hematuria Musculoskeletal Musculoskeletal: Denies back pain or neck pain Integumentary Denies abscess or rash Neurologic Neurologic: Denies headache(s), paresthesias or weakness Psychiatric Psychiatric: Denies anxiety or suicidal thoughts Endocrine Endocrinology: Reports polydipsia and polyuria EXAM Physical Exam Const Vital Signs: 03/12/24 22:55 Temperature 97.6 F L Temperature Source Temporal Pulse Rate 138 H Respiratory Rate 18 Blood Pressure 111/57 L Blood Pressure Mean 75 Pulse Ox 99 Oxygen Delivery Method Room Air Positive well nourished and well developed Constitutional Narrative: Ill-appearing, vomiting, NAD General Appearance ED: well developed and NAD HEENT Reports moist mucous membranes normocephalic and atraumatic Eyes PERRL and EOMs intact bilaterally Neck full ROM and supple Resp normal respiratory effort and clear to auscultation bilaterally Cardio regular rate, regular rhythm and no murmurs Rate: tachycardic GI non-distended GI Narrative: Very mild left sided abdominal tenderness. No guarding or rebound. No distention. Auscultation: hyperactive bowel sounds Palpation: soft Back/Spine no CVA tenderness General Back: other FROM Extremity normal to inspection General Extremety ED: Negative for edema, pulses abnormal or tenderness General Extremity: Negative for edema or pulses abnormal Neuro oriented x3, CN's II-XII intact bilaterally and no sensory deficits noted Sensorium / Orientation: awake and alert Motor Exam: strength 5/5 throughout Skin no rashes or lesions noted and no wounds MDM MDM MDM Narrative Medical decision making narrative: VBG was the first labs are returned back, showing acidosis with a pH of 7.14, consistent with DKA. The rest of his workup also consistent with DKA, he has a significant leukocytosis likely demargination from the stress, his bicarb is 8, his potassium is elevated at 5.6 consistent with acidosis and his glucose is 725 with positive serum ketones. Will start him on insulin drip, he was already started on IV fluids and Zofran and plan will be for admission. History & Record Review Additional record(s) reviewed:: Prior labs Lab Data Attestation: I reviewed the patient's lab results. Labs: Laboratory Results - last 24 hr 03/13/24 03/13/24 01:00 01:01 WBC 21.5 H RBC 5.48 Hgb 11.0 L Hct 38.1 L MCV 69.5 L MCH 20.1 L MCHC 28.9 L RDW Std Deviation 35.1 RDW Coeff of Rabia 14.4 Plt Count 407 MPV 9.9 Immature Gran % (Auto) 0.600 Neut % (Auto) 84.0 H Lymph % (Auto) 7.6 L Kleberg % (Auto) 7.3 Eos % (Auto) 0.0 Baso % (Auto) 0.5 Absolute Neuts (auto) 18.1 H Absolute Lymphs (auto) 1.63 Nucleated RBC % 0 Sodium 129 L Potassium 5.6 H Chloride 89 L Carbon Dioxide 8.0 L* Anion Gap 32 H BUN 33 H Creatinine 2.00 H Estim Creat Clear Calc 64.92 Est GFR (MDRD) Af Amer 53 L Est GFR (MDRD) Non-Af 44 L BUN/Creatinine Ratio 16.5 Glucose 725 H* Calcium 9.5 Acetone Level LARGE H POC Glucose > 500 H* ABG Data ABG results: ABG 03/13/24 00:43 Specimen Type MARILYNN Sample Site Not entered VBG pH 7.14 L* VBG pO2 59 H VBG HCO3 6 L VBG Total CO2 6 L VBG O2 Sat (Calc) 83 H VBG Base Excess -23 L POC Mix VBG pCO2 Pt Tmp 16.9 L* O2 Delivery Device Room Air Crit Call To/Read Back Yes Blood Gas Notified Whom ishmael Blood Gas Notified Time 00:45:20 Radiography Chest X-Ray - ED: 1 View, Read by ED Physician, No Acute Disease and No Infiltrates Rhythm Strip Rhythm Strip: Sinus Tach Rate: 130 Ectopy: None EKG Initial EKG: Attestation: I personally reviewed and interpreted this EKG as follows: Interpretation: Sinus Tachycardia Comments: No significant signs of hyperkalemia Management Discussion w/another healthcare provider: Hospitalist Critical Care Time Critical Care Time: Yes Critical care time (excluding procedures): 30-74 minutes (34 min), Including time spent:, Discussing w/Patient &/or Family/Group Fitness Department Head, Discussing w/Consultants, Arranging Admission or Transfer and Performing Direct Patient Care at Bedside Discharge Plan Triage Chief Complaint: Hyperglycemia ED Provider: Milan Hines Dx/Rx/DC Orders Clinical Impression: DKA (diabetic ketoacidosis) Prescriptions: No Action insulin lispro [Humalog KwikPen Insulin] 100 unit/mL insulin pen See Protocol subcut [facility] Protocol: 6. Sliding Scale Insulin Custom Condition: mg/dl range Dose/Route: Number of Units Condition: 150-199 Dose/Route: 2 Condition: 200-249 Dose/Route: 4 Condition: 250-299 Dose/Route: 6 Condition: 300-349 Dose/Route: 8 Condition: 350-399 Dose/Route: 10 Condition: 400-449 Dose/Route: 12 Condition: 450-499 Dose/Route: 14 Condition: 500> Instruction: CALL PCP Protocol Text: Custom Sliding Scale (DME) OneTouch Verio test strips Strip See Rx Instructions .ROUTE .MEDSUPPLY Rx Instructions: 4x/day (DME) pen needle, diabetic [BD Ultra-Fine Lorin Pen Needle] 32 gauge x 5/32 needle See Rx Instructions .ROUTE .MEDSUPPLY Rx Instructions: As directed (DME) FreeStyle Niru 14 Day Sensor Kit See Rx Instructions .ROUTE .MEDSUPPLY Rx Instructions: As directed potassium chloride 20 mEq tablet,ER particles/crystals 40 meq PO DAILY Xarelto 20 mg Tablet 20 mg PO DINNER Qty: 30 0RF mirtazapine 15 mg Tablet 7.5 mg PO BID 30 Days Qty: 30 0RF pantoprazole [Protonix] 40 mg tablet,delayed release (DR/EC) 40 mg PO BID 30 Days Qty: 60 0RF metoclopramide HCl [Reglan] 10 mg tablet 10 mg PO Q6H 30 Days Qty: 120 0RF insulin lispro 100 unit/mL insulin pen 25 unit subcut TIDAC Rx Instructions: Hold if glucose less than 130 mg/dl insulin glargine [Lantus Solostar U-100 Insulin] 100 unit/mL (3 mL) insulin pen 35 unit SUBCUT BID Rx Instructions: Hold if glucose less than 130 mg/dl Primary Care Provider: Mario Reyes Referrals: Mario Reyes MD [Primary Care Provider] - Disposition Disposition: Acute Care [facility]
[2024-03-13] MEDS: 0.9% Normal Saline (1000mL) 1,000 ML 999 ML IV ×3 (00:34→04:19)
[2024-03-13] MEDS: Ondansetron 4 MG/2 ML Vial IV (00:34)
[2024-03-13 00:48] LABS: Blood Gas Specimen Type VEN; O2 Delivery Device Room Air; SITE Not entered; VBG BASE EXCESS -23 mmol/L (-1.0-3.5); VBG Bicarbonate 6 mmol/L (22-26); VBG PO2 59 mmHg (25-40); VBG SO2 83 % (50-70); VBG TCO2 6 mmol/L (23-33); VBG pCO2 16.9 mmHg (41-51); VBG pH 7.14 (7.32-7.42)
[2024-03-13 01:08] LABS: Absolute Lymphocyte Count 1.63 X10^3/uL (0.83-4.51); Absolute Neutrophil Count 18.1 X10^3/uL (2.0-7.7); Basophil# 0.11 X10^3/uL; Basophil% 0.5 % (0-1); Eosinophil# 0.01 X10^3/uL; Hematocrit 38.1 % (40-54); Lymphocyte # 1.63 X10^3/ul (0.83-4.51); Lymphocyte % 7.6 % (19-41); Mean Corp Hgb Conc 28.9 g/dL (32-36); Mean Corpuscular Hgb 20.1 pg (27.0-32.0); Mean Corpuscular Volume 69.5 fL (80-94); Mean Platelet Vol. 9.9 fl (6.2-12.0); Monocyte# 1.57 X10^3/uL; Monocyte% 7.3 % (0-10); NRBC Flagged by Analyzer 0 % (0-5); Neutrophil # 18.06 X10^3/uL (2.7-7.7); POSITIVE DIFFERENTIAL YES; Platelet Count 407 K/mm3 (150-450); RBC Distribution Width CV 14.4 % (11.6-14.6); RBC Distribution Width SD 35.1 fl (35.1-43.9); Red Blood Count 5.48 M/mm3 (4.6-6.2); White Blood Count 21.5 K/mm3 (4.4-11.0)
[2024-03-13 01:19] LABS: Bedside Glucose > 500 mg/dL (74-106)
[2024-03-13 01:30] LABS: Anion Gap 32 (5-15); BUN 33 mg/dL (7-18); BUN/Creat Ratio 16.5 RATIO (10-20); Calcium,Total 9.5 mg/dL (8.5-10.1); Chloride 89 mmol/L (98-107); EST Glomerular Filtration Rate 44 mL/min (>60); Est Glom Filt Rate - Afr Amer 53 mL/min (>60); Estimated Creatinine Clearance 64.92 ml/min; Glucose 725 mg/dL (74-106); Potassium 5.6 mmol/L (3.5-5.1); Sodium Level 129 mmol/L (136-145)
[2024-03-13 01:44] LABS: Differential Indicated SCAN CRITERIA MET
[2024-03-13 01:45] LABS: Differential Comment SCANNED
--- NOTE | 2024-03-13 01:56 | PCM.HP.STD ---
HPI - General General Date of Admission: 03/13/24 Date of Service: 03/13/24 Chief Complaint: N/V/D, abdominal cramping, elevated BS, dyspnea. HPI Narrative The patient is a 23 y/o M w/ PMHx: Hx VTE (DVT, PE on xarelto), Uncontrolled Diabetes mellitus type I with frequent DKA presentations noncomplaint with his insulin and diet, Chronic severe protein calorie malnutrition, Hx 2021 pericarditis/pericardial infection (Treated at [facility], MSSA infection treated with abx therapy), History Stage II L buttock pressure, Hx dysphagia secondary to severe LA grade D erosive esophagitis with candidiasis, Chronic anemia, Anxiety and Depression, GERD who presents to the [facility] ED on 03/13/24 with history of unfortunately forgetting to take his insulin on day prior to presentation possibly taking it the day prior with elevated blood sugars noted to be in the 400 range with onset of nausea, bouts of emesis and mild dyspnea in addition to frequent loose stools described as watery with associated abdominal cramping and discomfort with at least 6-10 episodes over the course of the day prompting ED evaluation to be cautious. Workup in the ED included T97.6, heart rate 138, BP 111/57, respiratory rate 18, 99% on room air, VBG with pH 7.14, pO2 59, bicarb 6, CBC with WBC 21.5, hemoglobin 11, MCV 8069.5, platelet 407 with left shift, BMP with sodium 129, potassium 5.6, chloride 89, carbon oxide 8, anion gap 32, BUN/creatinine 33/2.0, glucose 725, acetone large, EKG with sinus tachycardia with no acute evidence of ischemia. In the ED patient administered Zofran 4 mg IV x 1 as well as insulin drip initiated. [facility] Medical History (Updated 03/13/24 @ 01:[address] Ashley Kapoor MD) Anemia due to chronic illness Anticoagulant long-term use Anxiety AP window (aortopulmonary window) Asthma [place] esophagitis Depression Diabetes mellitus type 1 DVT (deep venous thrombosis) femur surgery Gastroparesis GERD (gastroesophageal reflux disease) History of medication noncompliance Hypokalemia Hypokalemia Kidney disease [place] grade D esophagitis Non-smoker Noncompliance with diabetes treatment Psychosocial problem Recurrent pulmonary embolism Severe protein-calorie malnutrition Home Medications insulin lispro 100 unit/mL subcutaneous pen (Humalog KwikPen (U-100) Insulin) See Protocol subcut ACHS DIABETES 07/24/22 [History Last Taken 10/05/23] blood sugar diagnostic (OneTouch Verio test strips) 02/27/23 [History Last Taken Unknown] flash glucose sensor (FreeStyle Niru 14 Day Sensor kit) 02/27/23 [History Last Taken Unknown] pen needle, diabetic 32 gauge x 5/32 (BD Ultra-Fine Lorin Pen Needle) 02/27/23 [History Last Taken Unknown] potassium chloride 20 mEq tablet,extended release(part/cryst) 40 meq PO DAILY SUPPLEMENT 08/15/23 [History Last Taken 10/05/23] rivaroxaban 20 mg tablet (Xarelto) 20 mg PO DINNER BLOOD THINNER #30 tabs 09/17/23 [Rx Last Taken 10/05/23] metoclopramide HCl 10 mg tablet (Reglan) 10 mg PO Q6H GASTROPARESIS 30 days #120 tabs 09/20/23 [Rx Last Taken 10/05/23] mirtazapine 15 mg tablet 7.5 mg (1/2 x 15 mg) PO BID DEPRESSION 30 days #30 tabs 09/20/23 [Rx Last Taken Unknown] pantoprazole 40 mg tablet,delayed release (Protonix) 40 mg PO BID ACID REFLUX 30 days #60 tabs 09/20/23 [Rx Last Taken Unknown] insulin glargine 100 unit/mL (3 mL) subcutaneous pen (Lantus Solostar U-100 Insulin) 35 unit subcut BID DIABETES 10/05/23 [History Last Taken 10/05/23] insulin lispro 100 unit/mL subcutaneous pen 25 unit subcut TIDAC DIABETES 10/05/23 [History Last Taken 10/05/23] Allergy/AdvReac Type Severity Reaction Status Date / Time vancomycin Allergy local Verified 03/12/24 22:58 rash/hives to IV site Family History Father Polysubstance overdose Patient father young secondary to OD. Mother Iron deficiency anemia Other Asthma CVA (cerebral vascular accident) Diabetes Hypertension Thyroid disorder Surgical History H/O right knee surgery History of surgery on extremity Hx of knee surgery Social History housing: other details: Lives with his grandmother, aunt and mother. Smoking Status: Never smoker alcohol intake: current alcohol intake frequency: a few times a month substance use type: does not use ROS ROS Narrative Admission Review of Systems: CONSTITUTIONAL: No weight loss, fever, chills, + weakness or fatigue. HEENT: + Poor dentition. Eyes: No visual loss, blurred vision, double vision or yellow sclerae. Ears, Nose, Throat: No hearing loss, sneezing, congestion, runny nose or sore throat. SKIN: + History stage II left buttock pressure ulcer/sacral ulcers that have resolved, various abrasions, staged ecchymoses. CARDIOVASCULAR: No chest pain, chest pressure or chest discomfort, palpitations, edema, orthopnea, syncopal events. RESPIRATORY: + Shortness of breath, No cough or sputum, wheezing, hemoptysis. GASTROINTESTINAL: + anorexia, nausea, vomiting, abdominal pain/cramping, diarrhea. No melena, BRBPR. GENITOURINARY: + Increased urinary Frequency. No dysuria, urgency or retention. NEUROLOGICAL: No headache, dizziness, syncope, paralysis, ataxia, numbness or tingling in the extremities, focal weakness, change in bowel or bladder control, seizure. MUSCULOSKELETAL:+ muscle, back pain, joint pain or stiffness. HEMATOLOGIC: + Anemia, easy bleeding/bruising. LYMPHATICS: No enlarged nodes. No history of splenectomy. PSYCHIATRIC: + History of anxiety and depression. ENDOCRINOLOGIC: No reports of sweating, cold or heat intolerance. + polyuria or polydipsia. ALLERGIES: + Lactose intolerant. Vital Signs Vital Signs Vital Signs: 03/12/24 22:55 Temperature 97.6 F L Temperature Source Temporal Pulse Rate 138 H Respiratory Rate 18 Blood Pressure 111/57 L Blood Pressure Mean 75 Pulse Ox 99 Oxygen Delivery Method Room Air Weight Weight: 207 lb 3.752 oz Body Mass Index (BMI) 27.3 Physical Exam Narrative Physical Examination: General: Awake, alert, oriented x 3 and cooperative, laying in the ED bed, fatigued and ill appearing. Skin: Normal color, normal turgor, no icterus, no cyanosis, resolved posterior pressure ulcers, occasional staged ecchymoses, abrasion. HEENT: AT/NC, EOMI, PERRLA, dry MM, poor dentition, significantly poor dentition, no carotid bruits or JVD noted. Lungs: Diminished, greater bases, mildly increased respiratory rate but no distress, no rales, ronchi or wheezing. Heart: Tachycardic with regular rhythm; no gallop, rub audible. Abdomen: Soft, mild generalized discomfort with palpation with no rebound or guarding, mildly distended, hyperactive BS, no appreciated HSM. Extremities: No cyanosis, clubbing, or edema, see skin. Neurological: Patient awake, alert, oriented as noted, cognitive function intact; pupils equally reactive to light and accommodation, cranial nerves II-XII grossly normal, moving all 4 extremities, no focal deficits, strength moderately to severely globally decreased secondary to acute presentation complaints. Psychiatric: Affect appears fatigued, ill-appearing, no acute evidence of depressive or anxiety feelings but does have underlying history. Results Lab / Micro Data 03/13/24 01:00 03/13/24 01:00 Labs: Laboratory Results - last 24 hr 03/13/24 01:00: WBC 21.5 H, RBC 5.48, Hgb 11.0 L, Hct 38.1 L, MCV 69.5 L, MCH 20.1 L, MCHC 28.9 L, RDW Std Deviation 35.1, RDW Coeff of Rabia 14.4, Plt Count 407, MPV 9.9, Immature Gran % (Auto) 0.600, Neut % (Auto) 84.0 H, Lymph % (Auto) 7.6 L, [place] % (Auto) 7.3, Eos % (Auto) 0.0, Baso % (Auto) 0.5, Absolute Neuts (auto) 18.1 H, Absolute Lymphs (auto) 1.63, Nucleated RBC % 0, Differential Comment SCANNED, Diff Path Review March, Sodium 129 L, Potassium 5.6 H, Chloride 89 L, Carbon Dioxide 8.0 L*, Anion Gap 32 H, BUN 33 H, Creatinine 2.00 H, Estim Creat Clear Calc 64.92, Est GFR (MDRD) Af Amer 53 L, Est GFR (MDRD) Non-Af 44 L, BUN/Creatinine Ratio 16.5, Glucose 725 H*, Calcium 9.5, Acetone Level LARGE H 03/13/24 01:01: POC Glucose > 500 H* ABG Data ABG results: ABG 03/13/24 00:43 Specimen Type MARILYNN Sample Site Not entered VBG pH 7.14 L* VBG pO2 59 H VBG HCO3 6 L VBG Total CO2 6 L VBG O2 Sat (Calc) 83 H VBG Base Excess -23 L POC Mix VBG pCO2 Pt Tmp 16.9 L* O2 Delivery Device Room Air Crit Call To/Read Back Yes Blood Gas Notified Whom ishmael Blood Gas Notified Time 00:45:20 Rhythm Strip Rhythm Strip: Sinus Tach Rate: 130 Ectopy: None Assessment & Plan Assessment/Plan (1) DKA (diabetic ketoacidosis): PLAN: Plan The patient is a 23 y/o M w/ PMHx: Hx VTE (DVT, PE on xarelto), Uncontrolled Diabetes mellitus type I with frequent DKA presentations noncomplaint with his insulin and diet, Chronic severe protein calorie malnutrition, Hx 2021 pericarditis/pericardial infection (Treated at [facility], MSSA infection treated with abx therapy), History Stage II L buttock pressure, Hx dysphagia secondary to severe LA grade D erosive esophagitis with candidiasis, Chronic anemia, Anxiety and Depression, GERD who presents to the [facility] ED on 03/13/24 with history of unfortunately forgetting to take his insulin on day prior to presentation possibly taking it the day prior with elevated blood sugars noted to be in the 400 range with onset of nausea, bouts of emesis and mild dyspnea in addition to frequent loose stools described as watery with associated abdominal cramping and discomfort with at least 6-10 episodes over the course of the day prompting ED evaluation to be cautious. #1. DKA w/ Diabetes mellitus type I: Patient initiated in the ED on insulin drip. Will admit to the ICU, will request denture contour wire specialist consultation per protocol and given not critical will plan consultation in AM, continue on insulin drip, check serial K+, glucose w/ IVF changes pending these levels, serial chemistry, obtain mag, phos daily w/ repletion as needed, transition to home SC regimen when gap closed w/ overlap on drip, nutrition consultation. HgbA1c requested. Nutrition consultation for education and teaching. #2. N/V/D, possible acute gastroenteritis: Especially given #1 will continue aggressive hydration, will obtain c diff, stool cx to be cautious, will not start antibiotics at this time given unclear source pending stool studies as may be viral gastroenteritis. Anti-emetics, pain regimen PRN. #3. Leukocytosis, possibly reactive, possibly associated with dehydration: Admission CBC with WBC 21.5 with left shift, given #1 will continue to aggressively hydrate, will continue evaluation as noted #2, repeat CBC in a.m., procalcitonin requested. #4. Electrolyte disturbances w/ Metabolic acidosis: Admission CMP with sodium 129 secondary to significant hyperglycemia with DKA with corrected more appropriate, potassium mildly elevated 5.6, chloride 89, carbon oxide 8, will continue treatment as noted #1, administering also bicarb amp x 2 and serially trend BMP. #5. Acute kidney injury: Secondary to #1, #2. Admission BUN/Cr 33/2.0, prior baseline creatinine noted to be 0.7-0.9. Will hydrate aggressively as noted above, hold nephrotoxic medications and repeat BMP serially as noted. #6. Chronic microcytic anemia: Admission hemoglobin 11, MCV 69.5, baseline hemoglobin primarily 9-10, most recent previous to current presentation 11/28/2023 hemoglobin 9.0, will continue to hydrate as noted above and repeat CBC in AM. Iron panel, ferritin requested. #7. History of dysphagia secondary to severe LA grade D erosive esophagitis with candidiasis: Completed oral antifungal region and from review of outside hospital notes patient was discharged from 01/17/24. Maintained on PPI. #8. History of VTE: Patient with history DVT, PE, we will continue patient home Xarelto regimen. #9. Lactose intolerant: We will temporarily hold patient home chronic lactase regimen until oral diet started, resume once appropriate. #10. Anxiety and depression: We will continue patient home mirtazapine regimen. #11. Severe chronic protein and calorie malnutrition: In the setting of significant chronic diabetic disease with noncompliance with serial readmissions usually for DKA however current presentation with bilateral lower extremity wounds, nutrition consulted. #12. History of chronic pressure ulcers: Patient with previous significant sacral and buttock pressure ulcers, currently appear resolved, encourage frequent positional changes, offloading. #13. GERD: Maintained on IV PPI. #14. DVT prophylaxis: Continue home Xarelto regimen. #15. CODE STATUS: Full Code. Charges/Coding Visit Charges Inpatient E&M: 63416 Init Hosp L3
[2024-03-13] MEDS: Insulin Lispro 100 UNIT in 0.9% Normal Saline (100mL Bag) 99 ML 9.4 UNIT CONT INF (02:14)
[2024-03-13] MEDS: 0.9% Normal Saline (1000mL) 1,000 ML 500 ML IV (02:14)
[2024-03-13] MEDS: Metoclopramide 10 MG/2 ML Vial 5 MG IV ×4 (02:15→17:23)
[2024-03-13 02:33] LABS: Phosphorus 7.9 mg/dL (2.5-4.9)
[2024-03-13 02:42] LABS: Bedside Glucose > 500 mg/dL (74-106)
[2024-03-13 02:43] LABS: Procalcitonin 0.09 ng/mL (0.00-0.09)
[2024-03-13] MEDS: Pantoprazole Sodium 40 MG in 0.9% Normal Saline (100mL MB+) 100 ML 330 MG IV (03:28)
[2024-03-13] MEDS: Sodium Bicarbonate 8.4% 50 ML Syringe 50 MEQ IV ×2 (03:28)
[2024-03-13 03:48] LABS: Allen Test Positive; Base Excess -21 mmol/L (-2 to +2); Bicarbonate 7.4 mmol/L (22-26); Blood Gas Specimen Type ART; Mode Not entered; O2 Delivery Device Not entered; PO2 50 mmHG (75-100); SITE R Radial; SO2 77 % (95-99); Total Carbon Dioxide 8 mmol/L; pCO2 20.3 mmHg (35-45); pH 7.17 (7.35-7.45)
--- NOTE | 2024-03-13 04:13 | CPS ---
Critical ABG values. Dr. anne aware.
[2024-03-13 04:46] LABS: Absolute Lymphocyte Count 0.96 X10^3/uL (0.83-4.51); Absolute Neutrophil Count 11.5 X10^3/uL (2.0-7.7); Basophil# 0.04 X10^3/uL; Basophil% 0.3 % (0-1); Eosinophil# 0.12 X10^3/uL; Eosinophils% 0.9 % (0-5); Hematocrit 25.5 % (40-54); Hemoglobin 7.7 g/dL (13.0-16.5); Lymphocyte # 0.96 X10^3/ul (0.83-4.51); Mean Corp Hgb Conc 30.2 g/dL (32-36); Mean Corpuscular Hgb 20.7 pg (27.0-32.0); Mean Corpuscular Volume 68.5 fL (80-94); Monocyte# 0.94 X10^3/uL; Monocyte% 6.9 % (0-10); NRBC Flagged by Analyzer 0 % (0-5); Neutrophil # 11.51 X10^3/uL (2.7-7.7); Neutrophil % 84.4 % (47-70); Platelet Count 267 K/mm3 (150-450); RBC Distribution Width SD 33.6 fl (35.1-43.9); Red Blood Count 3.72 M/mm3 (4.6-6.2); White Blood Count 13.6 K/mm3 (4.4-11.0)
[2024-03-13 04:53] LABS: Bedside Glucose > 500 mg/dL (74-106)
[2024-03-13] MEDS: 0.9% Normal Saline (1000mL) 1,000 ML 150 ML IV (05:15)
[2024-03-13 05:27] LABS: AST(SGOT) 8 U/L (15-37); Alanine Aminotransfer ALT/SGPT 15 U/L (16-61); Albumin, Serum 2.5 g/dL (3.2-5.0); Alkaline Phosphatase 93 U/L (45-117); Anion Gap 19 (5-15); BUN 26 mg/dL (7-18); BUN/Creat Ratio 23.4 RATIO (10-20); Bilirubin, Direct 0.36 mg/dL (0.00-0.30); Calcium,Total 5.9 mg/dL (8.5-10.1); Chloride 117 mmol/L (98-107); Creatinine, Serum 1.11 mg/dL (0.70-1.30); EST Glomerular Filtration Rate 87 mL/min (>60); Est Glom Filt Rate - Afr Amer 105 mL/min (>60); Estimated Creatinine Clearance 116.97 ml/min; Ferritin 9 ng/mL (26-388); Globulin 2.4 g/dL (2.2-4.2); Glucose 311 mg/dL (74-106); Iron 23 ug/dL (65-175); Iron Binding Capacity,Total 380 ug/dL (250-450); Magnesium 1.5 mg/dL (1.6-2.6); PERCENT IRON SATURATION 6.1 % (15.0-55.0); Protein, Total 4.9 g/dL (6.4-8.2); Sodium Level 144 mmol/L (136-145)
[2024-03-13 05:38] LABS: Bedside Glucose 326 mg/dL (74-106)
[2024-03-13 05:41] LABS: Bacteria 0 SEEN /hpf (None Seen); Mucous, Urine 0 SEEN /hpf (<or=2+); Red Blood Cells-Urine 0 SEEN /hpf (0-5); Squamous Epithelial Cells - UA 0 SEEN /hpf (0-5); White Blood Cells 0 SEEN /hpf (0-5)
[2024-03-13 05:54] LABS: Color, Urine Yellow (Yellow); Glucose, Dipstick 1000 mg/dl (Normal); Leukocyte Esterase-Dipstick Negative /ul (Negative); Nitrite-Dipstick Negative (Negative); Occult Blood-Urine 10 /ul (Negative); Protein-Dipstick 30 mg/dl (Negative); Specific Gravity, Urine 1.015 (1.002-1.030); Urine Bilirubin Dipstick Negative (Negative); Urine Clarity Clear (Clear); Urine Urobilinogen Normal (Normal)
[2024-03-13 06:13] LABS: Ketone-Dipstick 150 mg/dl (Negative)
[2024-03-13] MEDS: Potassium Chloride 10mEq/100mL 10 MEQ/100 ML IV.SOLN. 100 MEQ IV BOLUS ×2 (06:26→07:25)
[2024-03-13] MEDS: Calcium Gluconate IV 1 GM in 0.9% Normal Saline (100mL Bag) 100 ML IV (06:26)
[2024-03-13 06:31] LABS: Bedside Glucose 379 mg/dL (74-106)
[2024-03-13 06:39] LABS: Bedside Glucose 321 mg/dL (74-106)
[2024-03-13 07:45] LABS: Bedside Glucose 355 mg/dL (74-106)
[2024-03-13 08:24] LABS: Hemoglobin A1c 9.5 % (3.8-5.6)
[2024-03-13] MEDS: Magnesium Sulfate 2 GM in Dextrose 5%-Water (100mL Bag) 100 ML IV (08:55)
[2024-03-13 09:12] LABS: Hematocrit 31.8 % (40-54); Hemoglobin 9.4 g/dL (13.0-16.5); Mean Corp Hgb Conc 29.6 g/dL (32-36); Mean Corpuscular Hgb 20.3 pg (27.0-32.0); Mean Corpuscular Volume 68.7 fL (80-94); Mean Platelet Vol. 9.9 fl (6.2-12.0); Platelet Count 297 K/mm3 (150-450); RBC Distribution Width CV 14.4 % (11.6-14.6); RBC Distribution Width SD 34.6 fl (35.1-43.9); Red Blood Count 4.63 M/mm3 (4.6-6.2)
--- NOTE | 2024-03-13 10:02 | CASEMGMT ---
VERONA FONTANEZ Assessment Face to Face with patient for initial transition planning/care coordination assessment. VERONA FONTANEZ introduced self and role at [facility], pt voices understanding. Pt is A&Ox4 and is resting comfortably in bed and is calm. Care providers, pharmacy, and demographics verified. Admitting dx: DKA LACE Strata: 3 PCP: Eric Specialists: Mandi Long). Pt states that he does not follow at the counseling center anymore Preferred Pharmacy: [facility] Insurance: [employer] Prescription Benefit: Yes LNOK: Ines Light (GM and HCPOA), Sobia Light (Aunt) Living Arrangements: Pt lives with his GM, Mom, Aunt, Brother, and Cousin in a 2 story home with a FFSU and 2 steps to enter ADLs/IADLs: Ind Transportation: GM, Insurance DME: Cane at home but does not use. Pt states that he has a working CBGM and enough supplies to check his BS levels. Pt denies issues or needs with this. Pt states that he gets sensor refills through [facility]. HHC/SNF: Denies history or needs Pt?s goal: Home with family Plan: Pt states that he wishes to return home with no additional needs once medically ready. Pt denies the need for HHC or OP therapy at this time. Pt does have a history with [facility] but was discharged from their care d/t noncompliance. CM to follow for safe DC from [facility]. Tavo Butler RN, CM
[2024-03-13] MEDS: Sodium Ferric Gluconat/Sucrose 250 MG in 0.9% Normal Saline (250mL Bag) 250 ML 135 MG IV (10:39)
[2024-03-13 10:59] LABS: Bedside Glucose 332 mg/dL (74-106)
[2024-03-13 11:04] LABS: Bedside Glucose 282 mg/dL (74-106)
[2024-03-13 11:08] LABS: Anion Gap 17 (5-15); BUN 19 mg/dL (7-18); BUN/Creat Ratio 16.1 RATIO (10-20); Calcium,Total 7.8 mg/dL (8.5-10.1); Chloride 101 mmol/L (98-107); Creatinine, Serum 1.18 mg/dL (0.70-1.30); EST Glomerular Filtration Rate 81 mL/min (>60); Est Glom Filt Rate - Afr Amer 98 mL/min (>60); Estimated Creatinine Clearance 110.03 ml/min; Glucose 588 mg/dL (74-106); Potassium 8.4 mmol/L (3.5-5.1); Sodium Level 129 mmol/L (136-145)
[2024-03-13] MEDS: Vancomycin 125 MG/5 ML Susp PO.SYRINGE PO ×2 (11:37→17:23)
[2024-03-13 11:59] LABS: Bedside Glucose 281 mg/dL (74-106)
[2024-03-13 12:09] LABS: Anion Gap 18 (5-15); BUN 25 mg/dL (7-18); BUN/Creat Ratio 17.1 RATIO (10-20); Calcium,Total 8.7 mg/dL (8.5-10.1); Chloride 108 mmol/L (98-107); Creatinine, Serum 1.46 mg/dL (0.70-1.30); EST Glomerular Filtration Rate 64 mL/min (>60); Est Glom Filt Rate - Afr Amer 77 mL/min (>60); Estimated Creatinine Clearance 88.93 ml/min; Glucose 324 mg/dL (74-106); Potassium 4.9 mmol/L (3.5-5.1); Sodium Level 141 mmol/L (136-145)
[2024-03-13 13:28] LABS: Pathologist Review Reviewed
[2024-03-13 14:53] LABS: Bedside Glucose 329 mg/dL (74-106)
[2024-03-13 15:21] LABS: Bedside Glucose 337 mg/dL (74-106)
--- NOTE | 2024-03-13 15:21 | PN.HOSP_ITS ---
Hospitalist Note Patient admitted earlier this morning to the ICU for DKA. Was found to be C. difficile positive this morning, was initiated on p.o. vancomycin. Has had improving labs on the insulin drip with supplemental IV fluids. Saw patient at the bedside later in the morning and he appeared fatigued but otherwise stated he was feeling better than previous days. He still had fairly minimal appetite at that point. Will likely plan to keep patient on the insulin drip until tomorrow morning and plan to transition off then if DKA has resolved. Full pr ogress note to follow tomorrow.
[2024-03-13] MEDS: Insulin Lispro 100 UNIT in 0.9% Normal Saline (100mL Bag) 99 ML CONT INF (15:45)
[2024-03-13 16:22] LABS: Bedside Glucose 268 mg/dL (74-106)
[2024-03-13 16:28] LABS: Anion Gap 16 (5-15); BUN 21 mg/dL (7-18); BUN/Creat Ratio 15.3 RATIO (10-20); Calcium,Total 8.1 mg/dL (8.5-10.1); Chloride 113 mmol/L (98-107); Creatinine, Serum 1.37 mg/dL (0.70-1.30); EST Glomerular Filtration Rate 68 mL/min (>60); Est Glom Filt Rate - Afr Amer 83 mL/min (>60); Estimated Creatinine Clearance 94.77 ml/min; Glucose 312 mg/dL (74-106); Potassium 4.2 mmol/L (3.5-5.1); Sodium Level 142 mmol/L (136-145)
[2024-03-13] MEDS: Rivaroxaban 20 MG Tablet PO (17:23)
[2024-03-13] MEDS: Dext 5%-0.45% NS 1,000 ML 150 ML IV (17:23)
[2024-03-13 17:27] LABS: Bedside Glucose 243 mg/dL (74-106)
[2024-03-13 20:25] LABS: Anion Gap 12 (5-15); BUN 19 mg/dL (7-18); BUN/Creat Ratio 14.1 RATIO (10-20); Calcium,Total 8.5 mg/dL (8.5-10.1); Chloride 112 mmol/L (98-107); Creatinine, Serum 1.35 mg/dL (0.70-1.30); EST Glomerular Filtration Rate 70 mL/min (>60); Est Glom Filt Rate - Afr Amer 84 mL/min (>60); Estimated Creatinine Clearance 96.18 ml/min; Glucose 327 mg/dL (74-106); Sodium Level 140 mmol/L (136-145)
[2024-03-13] MEDS: Pantoprazole Sodium 40 MG Tablet PO (20:55)
[2024-03-13] MEDS: Mirtazapine 15 MG Tablet 7.5 MG PO (20:56)
[2024-03-13 21:11] LABS: Bedside Glucose 228 mg/dL (74-106)
[2024-03-13 21:11] LABS: Bedside Glucose 253 mg/dL (74-106)
[2024-03-13 21:11] LABS: Bedside Glucose 263 mg/dL (74-106)
[2024-03-14] VITALS (12 sets, daily range): BP systolic 91–128; BP diastolic 38–89; PULSE 94–111; RESP 14–18; TEMP 36.3–37; O2SAT 97–100; BMI 28.3
[2024-03-14] MEDS: Dext 5%-0.45% NS 1,000 ML 150 ML IV ×2 (00:07→06:48)
[2024-03-14 00:49] LABS: Anion Gap 7 (5-15); BUN 17 mg/dL (7-18); BUN/Creat Ratio 13.9 RATIO (10-20); Calcium,Total 8.5 mg/dL (8.5-10.1); Chloride 114 mmol/L (98-107); Creatinine, Serum 1.22 mg/dL (0.70-1.30); EST Glomerular Filtration Rate 78 mL/min (>60); Est Glom Filt Rate - Afr Amer 95 mL/min (>60); Estimated Creatinine Clearance 106.42 ml/min; Glucose 210 mg/dL (74-106); Potassium 3.6 mmol/L (3.5-5.1); Sodium Level 140 mmol/L (136-145)
[2024-03-14] MEDS: Vancomycin 125 MG/5 ML Susp PO.SYRINGE PO ×5 (01:37→23:05)
[2024-03-14] MEDS: Metoclopramide 10 MG/2 ML Vial 5 MG IV ×5 (01:38→22:00)
[2024-03-14 04:35] LABS: Hematocrit 29.7 % (40-54); Hemoglobin 9.1 g/dL (13.0-16.5); Mean Corp Hgb Conc 30.6 g/dL (32-36); Mean Corpuscular Hgb 20.8 pg (27.0-32.0); Mean Corpuscular Volume 67.8 fL (80-94); Mean Platelet Vol. 9.8 fl (6.2-12.0); Platelet Count 313 K/mm3 (150-450); RBC Distribution Width CV 14.7 % (11.6-14.6); RBC Distribution Width SD 35.1 fl (35.1-43.9); Red Blood Count 4.38 M/mm3 (4.6-6.2); White Blood Count 9.5 K/mm3 (4.4-11.0)
[2024-03-14 04:56] LABS: Anion Gap 6 (5-15); BUN 15 mg/dL (7-18); BUN/Creat Ratio 13.6 RATIO (10-20); Calcium,Total 8.5 mg/dL (8.5-10.1); Chloride 115 mmol/L (98-107); EST Glomerular Filtration Rate 88 mL/min (>60); Est Glom Filt Rate - Afr Amer 107 mL/min (>60); Estimated Creatinine Clearance 118.03 ml/min; Glucose 169 mg/dL (74-106); Magnesium 2.1 mg/dL (1.6-2.6); Potassium 3.1 mmol/L (3.5-5.1); Sodium Level 142 mmol/L (136-145)
[2024-03-14 05:07] LABS: Phosphorus 1.5 mg/dL (2.5-4.9)
[2024-03-14 07:02] LABS: Bedside Glucose 169 mg/dL (74-106)
[2024-03-14] MEDS: Insulin Lispro 100 UNIT/ML INSULN.PEN 15 UNIT SC (08:49)
[2024-03-14] MEDS: Insulin Glargine-YFGN 100 UNIT/ML Pen 25 UNIT SC ×2 (08:50→21:41)
[2024-03-14] MEDS: Na Biphos/Potassium Phosphate PACKET 1 PACKET PO ×3 (08:51→16:43)
[2024-03-14 09:05] LABS: Bedside Glucose 150 mg/dL (74-106)
[2024-03-14 09:05] LABS: Bedside Glucose 238 mg/dL (74-106)
[2024-03-14 09:05] LABS: Bedside Glucose 178 mg/dL (74-106)
[2024-03-14 09:05] LABS: Bedside Glucose 206 mg/dL (74-106)
[2024-03-14 09:05] LABS: Bedside Glucose 193 mg/dL (74-106)
[2024-03-14 09:05] LABS: Bedside Glucose 133 mg/dL (74-106)
[2024-03-14 09:05] LABS: Bedside Glucose 167 mg/dL (74-106)
[2024-03-14 09:05] LABS: Bedside Glucose 167 mg/dL (74-106)
[2024-03-14 09:15] LABS: Bedside Glucose 156 mg/dL (74-106)
[2024-03-14] MEDS: Lactated Ringers 1,000 ML 125 ML IV ×3 (10:22→23:05)
[2024-03-14] MEDS: Sodium Ferric Gluconat/Sucrose 250 MG in 0.9% Normal Saline (250mL Bag) 250 ML 135 MG IV (10:22)
--- NOTE | 2024-03-14 11:43 | PCM.PN.HOSP ---
Reason for Visit Reason for Visit: Diagnoses Type 2 diabetes mellitus with ketoacidosis without coma (03/13/24) Subjective Subjective No acute events overnight. Patient seen at bedside this morning. Patient's anion gap was closed this morning and per nursing staff patient felt decently hungry, so I transitioned him off the insulin drip. When I saw him midmorning he was eating breakfast. He had only been able to get down about 25 to 50% of his breakfast before feeling a bit nauseous. He stated that he still felt thirsty, improved from yesterday but still more thirsty than his normal. He had no episodes of diarrhea overnight or this morning. No other acute concerns this time. Objective Data Objective Data Vital Signs: Vital Signs Temp Pulse Resp BP Pulse Ox O2 Del Method 98 F 100 16 91/50 L 99 Room Air 03/14/24 07:00 03/14/24 07:00 03/14/24 07:00 03/14/24 07:00 03/14/24 07:00 03/14/24 07:00 Oxygen Delivery Method Room Air Weight: 97.5 kg Body Mass Index (BMI) 28.3 Intake & Output: Intake and Output for Last 24 Hours 03/12/24 03/13/24 03/14/24 23:59 23:59 23:59 Intake Total 7451.98 / 7801.98 2152.52 / 2152.52 Output Total 2850 / 3175 325 / 325 Balance 4601.98 / 4626.98 1827.52 / 1827.52 Lab / Micro Data 03/14/24 04:15 03/14/24 04:15 Labs: Laboratory Results - last 24 hr 03/13/24 01:00: Diff Path Review Reviewed 03/13/24 11:35: POC Glucose 281 H 03/13/24 11:44: Sodium 141, Potassium 4.9, Chloride 108 H, Carbon Dioxide 15.0 L, Anion Gap 18 H, BUN 25 H, Creatinine 1.46 H, Estim Creat Clear Calc 88.93, Est GFR (MDRD) Af Amer 77, Est GFR (MDRD) Non-Af 64, BUN/Creatinine Ratio 17.1, Glucose 324 H, Calcium 8.7 03/13/24 13:28: POC Glucose 337 H 03/13/24 14:35: POC Glucose 329 H 03/13/24 15:35: Sodium 142, Potassium 4.2, Chloride 113 H, Carbon Dioxide 13.0 L, Anion Gap 16 H, BUN 21 H, Creatinine 1.37 H, Estim Creat Clear Calc 94.77, Est GFR (MDRD) Af Amer 83, Est GFR (MDRD) Non-Af 68, BUN/Creatinine Ratio 15.3, Glucose 312 H, Calcium 8.1 L 03/13/24 16:01: POC Glucose 268 H 03/13/24 17:06: POC Glucose 243 H 03/13/24 18:14: POC Glucose 253 H 03/13/24 19:22: POC Glucose 263 H 03/13/24 20:00: Sodium 140, Potassium 4.0, Chloride 112 H, Carbon Dioxide 16.0 L, Anion Gap 12, BUN 19 H, Creatinine 1.35 H, Estim Creat Clear Calc 96.18, Est GFR (MDRD) Af Amer 84, Est GFR (MDRD) Non-Af 70, BUN/Creatinine Ratio 14.1, Glucose 327 H, Calcium 8.5 03/13/24 20:49: POC Glucose 228 H 03/13/24 21:52: POC Glucose 238 H 03/13/24 23:03: POC Glucose 206 H 03/14/24 00:05: POC Glucose 178 H 03/14/24 00:15: Sodium 140, Potassium 3.6, Chloride 114 H, Carbon Dioxide 19.0 L, Anion Gap 7, BUN 17, Creatinine 1.22, Estim Creat Clear Calc 106.42, Est GFR (MDRD) Af Amer 95, Est GFR (MDRD) Non-Af 78, BUN/Creatinine Ratio 13.9, Glucose 210 H, Calcium 8.5 03/14/24 01:07: POC Glucose 193 H 03/14/24 02:11: POC Glucose 167 H 03/14/24 02:57: POC Glucose 150 H 03/14/24 04:15: WBC 9.5, RBC 4.38 L, Hgb 9.1 L, Hct 29.7 L, MCV 67.8 L, MCH 20.8 L, MCHC 30.6 L, RDW Std Deviation 35.1, RDW Coeff of Rabia 14.7 H, Plt Count 313, MPV 9.8, Sodium 142, Potassium 3.1 L, Chloride 115 H, Carbon Dioxide 21.0, Anion Gap 6, BUN 15, Creatinine 1.10, Estim Creat Clear Calc 118.03, Est GFR (MDRD) Af Amer 107, Est GFR (MDRD) Non-Af 88, BUN/Creatinine Ratio 13.6, Glucose 169 H, Calcium 8.5, Phosphorus 1.5 L, Magnesium 2.1 03/14/24 04:21: POC Glucose 133 H 03/14/24 05:45: POC Glucose 167 H 03/14/24 06:42: POC Glucose 169 H 03/14/24 08:47: POC Glucose 156 H Micro: Microbiology 03/13/24 05:30 Stool Enteric Bacteriology - Final 03/13/24 05:30 Stool C. difficile GDH Antigen & Toxins - Final 03/13/24 05:30 Stool Clostridioides difficile (PCR) - Final Rhythm Strip Rhythm Strip: Sinus Tach Rate: 130 Ectopy: None Physical Exam Const alert, oriented x3, no apparent distress and average body habitus Constitutional Narrative: Young male, sitting up comfortably in bed, mildly fatigued appearing, otherwise resting normally and in no acute distress. General Appearance: cooperative and comfortable HEENT normocephalic, head/scalp atraumatic, hearing grossly normal bilaterally and nasal mucous membranes and turbinates normal Eyes PERRL, EOMs intact bilaterally and conjunctivae normal Neck full ROM Chest inspection of chest normal Resp normal respiratory effort, normal air movement, no use of accessory muscles and clear to auscultation bilaterally Cardio no murmurs and peripheral pulses 2+ throughout Cardio Narrative: Tachycardic, regular rhythm. GI normal to inspection, nondistended, normoactive bowel sounds, soft to palpation, non-tender and non-distended Back/Spine normal ROM Extremity normal to inspection, full ROM and no pedal edema Skin no rashes or lesions noted Neuro moves all extremities and no focal motor deficits Speech: speech normal Psych mental status grossly normal Assessment & Plan Assessment/Plan (1) DKA (diabetic ketoacidosis): (2) C. difficile enteritis: PLAN: Plan Patient is a 23-year-old male who presented [facility] ED on 03/13/2024 with nausea/vomiting, diarrhea and concern for DKA. 1. DKA, resolved; poorly controlled type 1 diabetes mellitus with history of recurrent admissions for DKA ? Home insulin regimen of Lantus 35 units twice daily, Humalog 25 units with meals plus sliding scale. A1c 9.5% on admit, which is improved from previous values. Patient reported fairly good compliance with insulin regimen. Suspect DKA was more secondary to C. difficile infection as noted below. Labs on admit of pH 7.17, bicarb 8, glucose 725, positive urine ketones. Treated with insulin drip and heavy IV fluids with improvement by morning of 03/14. Transitioned to regimen of Lantus 25 units twice daily, Humalog 10 units with meals plus sliding scale insulin. Follow-up BMP this afternoon and again tomorrow morning. If patient tolerating diet well tomorrow morning and labs remained stable, likely discharge home tomorrow. 2. Suspected C. difficile infection ? Labs showed positive C. difficile PCR, positive C. difficile antigen but negative C. difficile toxin. Unclear on these results if patient is actively infected with C. difficile. However, given his presenting symptoms including significant diarrhea, will treat with 10-day course of p.o. vancomycin, stop date 03/22. 3. Chronic iron deficiency anemia ? Hemoglobin 11.0 on admit, dropped to 7.7 on CBC only 3 hours later. Repeat CBC at that afternoon showed hemoglobin 9.4 and hemoglobin remained stable around 9 on hospital day 2. Suspect the 7.7 read was aberrant. Baseline hemoglobin is around 8-10. Does have fairly significant iron deficiency anemia, appears this has been present in the past as well. Has a history of GI bleed as noted below. Denies any dark or bloody bowel movements recently. As hemoglobin is stable, okay to continue home Xarelto. Continue home PPI twice daily. Given 2 doses of IV iron 200 mg on 03/13 and 03/14. Recommend repeat iron studies in the next few months in the outpatient setting. 4. RADHA, resolved ? Creatinine 2.00 on admit, resolved to baseline from 1.1-1.3 with IV fluids. Presumed prerenal RADHA secondary to fluid losses from DKA and C. difficile. Has had adequate urine output. Monitoring BMP daily. Chronic medical conditions: ? GERD, history of severe grade D erosive esophagitis with candidiasis: Stable. Previously completed antifungal course. Continue home PPI twice daily. ? History of VTE: Continue home Xarelto. ? Mood disorder: Stable. Appears patient is prescribed mirtazapine 7.5 mg twice daily. Opted to treat with only mirtazapine 7.5 mg at night due to the sedating effect. Will plan to continue only mirtazapine at night on discharge. ? History of chronic pressure ulcers: Noted to be healing well on this admission. DVT prophylaxis: Xarelto CODE STATUS: Full code, verified Expected disposition: Home, 1 to 2 days Total clinical time spent by myself addressing the patient's medical issues, reviewing all the data, and collaborating with patient's care team: 35 minutes. Charges/Coding Visit Charges Inpatient E&M: 12208 Subs Hosp L2
[2024-03-14] MEDS: Pantoprazole Sodium 40 MG Tablet PO ×2 (12:12→21:41)
[2024-03-14 13:54] LABS: Anion Gap 9 (5-15); BUN 12 mg/dL (7-18); Calcium,Total 8.4 mg/dL (8.5-10.1); Chloride 110 mmol/L (98-107); EST Glomerular Filtration Rate 98 mL/min (>60); Est Glom Filt Rate - Afr Amer 119 mL/min (>60); Estimated Creatinine Clearance 141.28 ml/min; Glucose 178 mg/dL (74-106); Potassium 3.4 mmol/L (3.5-5.1); Sodium Level 140 mmol/L (136-145)
[2024-03-14 14:28] LABS: Bedside Glucose 80 mg/dL (74-106)
[2024-03-14] MEDS: Insulin Lispro 100 UNIT/ML INSULN.PEN 10 UNIT SC (16:40)
[2024-03-14] MEDS: Insulin Lispro 100 UNIT/ML INSULN.PEN SC ×2 (16:40→21:42)
[2024-03-14] MEDS: Menthol/Lanolin/Calamine/Znox 113 GM Tube 1 APPLIC TOPICAL ×2 (16:43→21:42)
[2024-03-14] MEDS: Rivaroxaban 20 MG Tablet PO (16:44)
[2024-03-14] MEDS: 0.9% Saline Lock 10 ML Syringe IV (16:47)
[2024-03-14 16:54] LABS: Bedside Glucose 264 mg/dL (74-106)
[2024-03-14] MEDS: Mirtazapine 15 MG Tablet 7.5 MG PO (21:41)
[2024-03-14 23:24] LABS: Bedside Glucose 249 mg/dL (74-106)
[2024-03-15 03:58] VITALS: BMI 29.0
[2024-03-15 03:59] VITALS: BP 124/79; PULSE 75; RESP 16; TEMP 36.7; O2SAT 99
[2024-03-15 05:33] LABS: Hematocrit 27.7 % (40-54); Hemoglobin 8.2 g/dL (13.0-16.5); Mean Corp Hgb Conc 29.6 g/dL (32-36); Mean Corpuscular Hgb 20.3 pg (27.0-32.0); Mean Corpuscular Volume 68.7 fL (80-94); Mean Platelet Vol. 9.1 fl (6.2-12.0); Platelet Count 217 K/mm3 (150-450); RBC Distribution Width CV 14.7 % (11.6-14.6); Red Blood Count 4.03 M/mm3 (4.6-6.2); White Blood Count 5.5 K/mm3 (4.4-11.0)
[2024-03-15 05:58] LABS: Anion Gap 5 (5-15); BUN 8 mg/dL (7-18); BUN/Creat Ratio 9.4 RATIO (10-20); Calcium,Total 8.4 mg/dL (8.5-10.1); Chloride 110 mmol/L (98-107); Creatinine, Serum 0.85 mg/dL (0.70-1.30); EST Glomerular Filtration Rate 119 mL/min (>60); Est Glom Filt Rate - Afr Amer 144 mL/min (>60); Estimated Creatinine Clearance 168.04 ml/min; Glucose 256 mg/dL (74-106); Potassium 3.1 mmol/L (3.5-5.1); Sodium Level 140 mmol/L (136-145)
[2024-03-15] MEDS: Vancomycin 125 MG/5 ML Susp PO.SYRINGE PO ×2 (06:02→11:29)
[2024-03-15] MEDS: Lactated Ringers 1,000 ML 125 ML IV (06:02)
[2024-03-15] MEDS: Na Biphos/Potassium Phosphate PACKET 1 PACKET PO ×2 (06:08→11:29)
[2024-03-15] MEDS: Metoclopramide 10 MG/2 ML Vial 5 MG IV ×2 (06:10→11:29)
[2024-03-15] MEDS: 0.9% Saline Lock 10 ML Syringe IV (06:10)
[2024-03-15 07:25] VITALS: O2SAT 98
[2024-03-15] MEDS: Potassium Chloride Oral Tablet 20 MEQ 60 MEQ PO (08:13)
[2024-03-15] MEDS: Pantoprazole Sodium 40 MG Tablet PO (08:13)
[2024-03-15] MEDS: Insulin Lispro 100 UNIT/ML INSULN.PEN 10 UNIT SC ×2 (08:14→11:28)
[2024-03-15] MEDS: Insulin Lispro 100 UNIT/ML INSULN.PEN SC (08:14)
[2024-03-15] MEDS: Insulin Glargine-YFGN 100 UNIT/ML Pen 25 UNIT SC (08:15)
--- NOTE | 2024-03-15 09:41 | DCINST_ITS ---
Discharge Instructions Diet Discharge Diet: Carb Control Diet Activity Discharge Activity: No Restrictions Follow Up Care Test Results: Test results from this visit will be discussed in further detail at your follow- up appointment, if applicable. Discharge Plan Admission Admit Date/Time: 03/13/24 01:59 Primary Reason for Your Visit: nausea/vomiting/diarrhea, DKA Attending Provider: Anurag Baxter Primary Care Provider: Mario Reyes Consulting Providers: Ashley Kapoor Discharge Orders/Prescriptions Prescriptions: New vancomycin [Firvanq] 25 mg/mL Recon Soln 125 mg PO Q6 8 Days Qty: 160 0RF Continued insulin lispro [Humalog KwikPen Insulin] 100 unit/mL insulin pen See Protocol subcut ACHS Protocol: 6. Sliding Scale Insulin Custom Condition: mg/dl range Dose/Route: Number of Units Condition: 150-199 Dose/Route: 2 Condition: 200-249 Dose/Route: 4 Condition: 250-299 Dose/Route: 6 Condition: 300-349 Dose/Route: 8 Condition: 350-399 Dose/Route: 10 Condition: 400-449 Dose/Route: 12 Condition: 450-499 Dose/Route: 14 Condition: 500> Instruction: CALL PCP Protocol Text: Custom Sliding Scale (DME) OneTouch Verio test strips Strip See Rx Instructions .ROUTE .MEDSUPPLY Rx Instructions: 4x/day (DME) pen needle, diabetic [BD Ultra-Fine Lorin Pen Needle] 32 gauge x 5/32 needle See Rx Instructions .ROUTE .MEDSUPPLY Rx Instructions: As directed (DME) FreeStyle Niru 14 Day Sensor Kit See Rx Instructions .ROUTE .MEDSUPPLY Rx Instructions: As directed potassium chloride 20 mEq tablet,ER particles/crystals 40 meq PO DAILY Xarelto 20 mg Tablet 20 mg PO DINNER Qty: 30 0RF pantoprazole [Protonix] 40 mg tablet,delayed release (DR/EC) 40 mg PO BID 30 Days Qty: 60 0RF metoclopramide HCl [Reglan] 10 mg tablet 10 mg PO Q6H 30 Days Qty: 120 0RF insulin lispro 100 unit/mL insulin pen 25 unit subcut TIDAC Rx Instructions: Hold if glucose less than 130 mg/dl insulin glargine [Lantus Solostar U-100 Insulin] 100 unit/mL (3 mL) insulin pen 35 unit SUBCUT BID Rx Instructions: Hold if glucose less than 130 mg/dl Changed mirtazapine 15 mg Tablet 7.5 mg PO QHS 30 Days Qty: 30 0RF Referrals / Follow Up: Mario eRyes MD [Primary Care Provider] - Disposition Disposition (needs filled in before D/C Order can be placed): Home, Self Care
--- NOTE | 2024-03-15 09:43 | PCM.DC.SUM ---
Providers Date of Admission: 03/13/24 Date of Discharge: 03/15/24 Primary Care Physician: Dr. 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 difficile enteritis: Status: Acute Code(s): A04.72 - Enterocolitis due to Clostridium difficile, not specified as recurrent Medications at Discharge Home Medications insulin lispro 100 unit/mL subcutaneous pen (Humalog KwikPen (U-100) Insulin) See Protocol subcut ACHS DIABETES 07/24/22 blood sugar diagnostic ([employer] Verio test strips) 02/27/23 flash glucose sensor (FreeStyle Niru 14 Day Sensor kit) 02/27/23 pen needle, diabetic 32 gauge x 5/32 (BD Ultra-Fine Lorin Pen Needle) 02/27/23 potassium chloride 20 mEq tablet,extended release(part/cryst) 40 meq PO DAILY SUPPLEMENT 08/15/23 rivaroxaban 20 mg tablet (Xarelto) 20 mg PO DINNER BLOOD THINNER #30 tabs 09/17/23 metoclopramide HCl 10 mg tablet (Reglan) 10 mg PO Q6H GASTROPARESIS 30 days #120 tabs 09/20/23 pantoprazole 40 mg tablet,delayed release (Protonix) 40 mg PO BID ACID REFLUX 30 days #60 tabs 09/20/23 insulin glargine 100 unit/mL (3 mL) subcutaneous pen (Lantus Solostar U-100 Insulin) 35 unit subcut BID DIABETES 10/05/23 insulin lispro 100 unit/mL subcutaneous pen 25 unit subcut TIDAC DIABETES 10/05/23 mirtazapine 15 mg tablet 7.5 mg (1/2 x 15 mg) PO QHS DEPRESSION 30 days #30 tabs 03/15/24 vancomycin 25 mg/mL oral solution (Firvanq) 125 mg (5 mL) PO Q6 8 days #160 mL 03/15/24 Hospital Course Operations None Procedures EKG and - (Chest x-ray) Summary of Care Provided Minutes Spent on Discharge: 35 Hospital Course: Patient is a 23-year-old male who presented [facility] ED on 03/13/2024 with nausea/vomiting, diarrhea and concern for DKA. Hospital course as noted below. Discharged home with no therapy needs in stable condition on 03/15. 1. DKA, resolved; poorly controlled type 1 diabetes mellitus with history of recurrent admissions for DKA Home insulin regimen of Lantus 35 units twice daily, Humalog 25 units with meals plus sliding scale. A1c 9.5% on admit, which is improved from previous values. Patient reported fairly good compliance with insulin regimen. Suspect DKA was more secondary to C. difficile infection as noted below. Labs on admit of pH 7.17, bicarb 8, glucose 725, positive urine ketones. ? Treated with insulin drip and heavy IV fluids on admit with improvement by morning of 03/14. Transitioned to regimen of Lantus 25 units twice daily, Humalog 10 units with meals plus sliding scale insulin. Blood sugars mildly elevated on this regimen but no recurrence of DKA. Was tolerating diet well with stable labs on morning of 03/15 and was okay for discharge home. Resume home insulin regimen on discharge. 2. Suspected C. difficile infection ? Labs showed positive C. difficile PCR, positive C. difficile antigen but negative C. difficile toxin. Unclear on these results if patient is actively infected with C. difficile. However, given his presenting symptoms including significant diarrhea, will treat with 10-day course of p.o. vancomycin, stop date 03/22. 3. Chronic iron deficiency anemia ? Hemoglobin 11.0 on admit, dropped to 7.7 on CBC only 3 hours later. Repeat CBC at that afternoon showed hemoglobin 9.4 and hemoglobin remained stable around 8-9 during remainder of admission. Suspect the 7.7 read was aberrant. Baseline hemoglobin is around 8-10. Does have fairly significant iron deficiency anemia, appears this has been present in the past as well. Has a history of GI bleed as noted below. Denies any dark or bloody bowel movements recently. As hemoglobin is stable, okay to continue home Xarelto. Continue home PPI twice daily. Given 2 doses of IV iron 200 mg on 03/13 and 5/3. Recommend repeat iron studies in the next few months in the outpatient setting. 4. RADHA, resolved ? Creatinine 2.00 on admit, resolved to baseline from 1.1-1.3 with IV fluids. Presumed prerenal RADHA secondary to fluid losses from DKA and C. difficile. Had good urine output during admission. Chronic medical conditions: ? GERD, history of severe grade D erosive esophagitis with candidiasis: Stable. Previously completed antifungal course. Continue home PPI twice daily. ? History of VTE: Continue home Xarelto. ? Mood disorder: Stable. Appears patient is prescribed mirtazapine 7.5 mg twice daily. Opted to treat with only mirtazapine 7.5 mg at night due to the sedating effect. Continued only mirtazapine at night on discharge. ? History of chronic pressure ulcers: Noted to be healing well on this admission. Total clinical time spent by myself addressing the patient's medical issues, reviewing all the data, and collaborating with patient's care team: 35 minutes. Physical Exam Const alert, oriented x3, no apparent distress and average body habitus Constitutional Narrative: Young male, sitting up comfortably in bed, mildly fatigued appearing, otherwise resting normally and in no acute distress. General Appearance: cooperative and comfortable HEENT normocephalic, head/scalp atraumatic, hearing grossly normal bilaterally and nasal mucous membranes and turbinates normal Eyes PERRL, EOMs intact bilaterally and conjunctivae normal Neck full ROM Chest inspection of chest normal Resp normal respiratory effort, normal air movement, no use of accessory muscles and clear to auscultation bilaterally Cardio no murmurs and peripheral pulses 2+ throughout Cardio Narrative: Tachycardic, regular rhythm. GI normal to inspection, nondistended, normoactive bowel sounds, soft to palpation, non-tender and non-distended Back/Spine normal ROM Extremity normal to inspection, full ROM and no pedal edema Skin no rashes or lesions noted Neuro moves all extremities and no focal motor deficits Speech: speech normal Psych mental status grossly normal Weight / BMI Weight Weight: 99.9 kg Body Mass Index (BMI) 29.0 ABG / Lab / Microbiology Data 03/15/24 05:24 03/15/24 05:24 Laboratory: Laboratory Results - last 24 hr 03/14/24 12:10: POC Glucose 80 03/14/24 13:22: Sodium 140, Potassium 3.4 L, Chloride 110 H, Carbon Dioxide 21.0, Anion Gap 9, BUN 12, Creatinine 1.00, Estim Creat Clear Calc 141.28, Est GFR (MDRD) Af Amer 119, Est GFR (MDRD) Non-Af 98, BUN/Creatinine Ratio 12.0, Glucose 178 H, Calcium 8.4 L 03/14/24 16:32: POC Glucose 264 H 03/14/24 21:31: POC Glucose 249 H 03/15/24 05:24: WBC 5.5, RBC 4.03 L, Hgb 8.2 L, Hct 27.7 L, MCV 68.7 L, MCH 20.3 L, MCHC 29.6 L, RDW Std Deviation 36.0, RDW Coeff of Rabia 14.7 H, Plt Count 217, MPV 9.1, Sodium 140, Potassium 3.1 L, Chloride 110 H, Carbon Dioxide 25.0, Anion Gap 5, BUN 8, Creatinine 0.85, Estim Creat Clear Calc 168.04, Est GFR (MDRD) Af Amer 144, Est GFR (MDRD) Non-Af 119, BUN/Creatinine Ratio 9.4 L, Glucose 256 H, Calcium 8.4 L Microbiology: Microbiology 03/13/24 05:30 Stool Enteric Bacteriology - Final 03/13/24 05:30 Stool C. difficile GDH Antigen & Toxins - Final 03/13/24 05:30 Stool Clostridioides difficile (PCR) - Final D/C Instructions Discharge Diet: Carb Control Diet Meaningful Use Info Meaningful Use Meaningful Use Diagnoses (Choose all that apply): None applicable Ischemic Stroke Statin Dosing Therapy Reference: STATIN DOSE THERAPY REFERENCE: * Patients > 75 years receive moderate or high dose statin therapy. * Patients 75 years or YOUNGER should receive HIGH intensity statin dose unless contraindicated. You will be required to document reason for non-treatment if statin daily dose does not meet guidelines. HIGH DOSE STATIN THERAPY DAILY Atorvastatin > than or = to 40 mg Rosuvastatin > than or = to 20 mg Amlodipine + Atorvastatin > than or = to 2.5/40 mg Ezetimibe + Simvastatin 10/80 mg Simvastatin 80mg Discharge Plan Admission Admit Date/Time: 03/13/24 01:59 Primary Reason for Your Visit: nausea/vomiting/diarrhea, DKA Attending Provider: Anurag Baxter Primary Care Provider: Mario Reyes Consulting Providers: Ashley Kapoor Discharge Orders/Prescriptions Prescriptions: New vancomycin [Firvanq] 25 mg/mL Recon Soln 125 mg PO Q6 8 Days Qty: 160 0RF Continued insulin lispro [Humalog KwikPen Insulin] 100 unit/mL insulin pen See Protocol subcut ACHS Protocol: 6. Sliding Scale Insulin Custom Condition: mg/dl range Dose/Route: Number of Units Condition: 150-199 Dose/Route: 2 Condition: 200-249 Dose/Route: 4 Condition: 250-299 Dose/Route: 6 Condition: 300-349 Dose/Route: 8 Condition: 350-399 Dose/Route: 10 Condition: 400-449 Dose/Route: 12 Condition: 450-499 Dose/Route: 14 Condition: 500> Instruction: CALL PCP Protocol Text: Custom Sliding Scale (DME) OneTouch Verio test strips Strip See Rx Instructions .ROUTE .MEDSUPPLY Rx Instructions: 4x/day (DME) pen needle, diabetic [BD Ultra-Fine Lorin Pen Needle] 32 gauge x 5/32 needle See Rx Instructions .ROUTE .MEDSUPPLY Rx Instructions: As directed (DME) FreeStyle Niru 14 Day Sensor Kit See Rx Instructions .ROUTE .MEDSUPPLY Rx Instructions: As directed potassium chloride 20 mEq tablet,ER particles/crystals 40 meq PO DAILY Xarelto 20 mg Tablet 20 mg PO DINNER Qty: 30 0RF pantoprazole [Protonix] 40 mg tablet,delayed release (DR/EC) 40 mg PO BID 30 Days Qty: 60 0RF metoclopramide HCl [Reglan] 10 mg tablet 10 mg PO Q6H 30 Days Qty: 120 0RF insulin lispro 100 unit/mL insulin pen 25 unit subcut TIDAC Rx Instructions: Hold if glucose less than 130 mg/dl insulin glargine [Lantus Solostar U-100 Insulin] 100 unit/mL (3 mL) insulin pen 35 unit SUBCUT BID Rx Instructions: Hold if glucose less than 130 mg/dl Changed mirtazapine 15 mg Tablet 7.5 mg PO QHS 30 Days Qty: 30 0RF Referrals / Follow Up: Mario Reyes MD [Primary Care Provider] - Disposition Disposition (needs filled in before D/C Order can be placed): Home, Self Care Charges/Coding Visit Charges Inpatient E&M: 31529 Disch Hosp >30min
[2024-03-15 10:15] VITALS: BP 124/77; PULSE 78; RESP 16; TEMP 36.8; O2SAT 99
[2024-03-15 11:43] LABS: Bedside Glucose 104 mg/dL (74-106)
== END 2024-03-15 14:21 | disposition home or self-care (01) | DRG 420 ==
LOC: ED 03-13 01:47 → ICU 03-13 02:19 → PCU 03-14 15:50
PROVIDERS: Admitting Provider Family Medicine; Emergency Provider Emergency Medicine; PCP Internal Medicine; Visit Provider Hospitalist
DX: E10.10 Type 1 diabetes mellitus with ketoacidosis without coma (principal); E43 Unspecified severe protein-calorie malnutrition; A04.72 Enterocolitis due to Clostridium difficile, not specified as recurrent; N17.9 Acute kidney failure, unspecified; Z79.4 Long term (current) use of insulin; D50.9 Iron deficiency anemia, unspecified; F32.A Depression, unspecified; K21.9 Gastro-esophageal reflux disease without esophagitis; E73.9 Lactose intolerance, unspecified; F41.9 Anxiety disorder, unspecified; Z68.29 Body mass index [BMI] 29.0-29.9, adult; Z79.01 Long term (current) use of anticoagulants; Z79.899 Other long term (current) drug therapy; Z86.711 Personal history of pulmonary embolism; Z86.718 Personal history of other venous thrombosis and embolism; Z87.19 Personal history of other diseases of the digestive system
CPT/HCPCS: 36415; 36600; 71046; 80048; 80076; 81001; 82009; 82728; 82803; 82962; 83036; 83540; 83550; 83735; 84100; 84145; 85025; 85027; 87493; 87506; 93005; 97802; 99284; J7030; J7050; J7120; A4216; J0612; J2405; J2916; J7799

== ENCOUNTER 2024-04-10 18:39 | Inpatient (IN) | payer MEDICAID, SELFPAY ==
[2024-04-10] VITALS (10 sets, daily range): BP systolic 91–119; BP diastolic 44–91; PULSE 121–126; RESP 16–23; TEMP 36.4–37.2; O2SAT 98–100; BMI 25.9; BMI 26.2
--- NOTE | 2024-04-10 18:47 | EKG12_ITS ---
Test Reason : HYPERGLYCEMIA Blood Pressure : / mmHG Vent. Rate : 120 BPM Atrial Rate : 120 BPM P-R Int : 144 ms QRS Dur : 102 ms QT Int : 334 ms P-R-T Axes : 066 086 049 degrees QTc Int : 472 ms Sinus tachycardia Incomplete right bundle branch block Nonspecific ST abnormality Abnormal ECG Confirmed by Mauri Almanzar ([id number]), editor magazine [employer] ([id number]) on 04/14/2024 6:58:52 AM Referred By: Ashley Kapoor Confirmed By:Mauri Almanzar
--- NOTE | 2024-04-10 18:48 | EDS_ITS ---
HPI History of Present Illness Chief Complaint: Hyperglycemia Informant: patient Onset/Context/Timing Onset: Today Context: Sudden Onset Timing: Continuous Quality: Aching Location: Abdomen Worsened by: Nothing Relieved by: Nothing Narrative Narrative: Patient presents with nausea and vomiting that began today. Patient states it began rather suddenly. Patient states it has been constant. Patient states she has also been having some diarrhea. Patient denies any melena or hematochezia. Patient admits to some diffuse abdominal pain. Patient describes it as aching. Patient denies any dysuria or hematuria. Patient denies any urinary frequency. Patient states nothing makes his symptoms better and nothing makes them worse. Patient denies any recent fevers or chills. [facility] Medical History Anticoagulant long-term use Anemia due to chronic illness Allen grade D esophagitis Minerva esophagitis Gastroparesis Recurrent pulmonary embolism AP window (aortopulmonary window) Anxiety Depression DVT (deep venous thrombosis) Hypokalemia Noncompliance with diabetes treatment History of medication noncompliance Severe protein-calorie malnutrition Kidney disease Hypokalemia Non-smoker Asthma Psychosocial problem femur surgery Diabetes mellitus type 1 GERD (gastroesophageal reflux disease) Home Medications ?Medication ?Instructions ?Recorded ?Last Taken ?Type insulin lispro 100 unit/mL See Protocol subcut ACHS DIABETES 07/24/22 10/05/23 History subcutaneous pen (Humalog KwikPen (U-100) Insulin) blood sugar diagnostic (OneTouch 02/27/23 Unknown History Verio test strips) flash glucose sensor (FreeStyle 02/27/23 Unknown History Niru 14 Day Sensor kit) pen needle, diabetic 32 gauge x 02/27/23 Unknown History (BD Ultra-Fine Lorin Pen Needle) potassium chloride 20 mEq 40 meq PO DAILY SUPPLEMENT 08/15/23 10/05/23 History tablet,extended release(part/cryst) rivaroxaban 20 mg tablet (Xarelto) 20 mg PO DINNER BLOOD THINNER #30 09/17/23 10/05/23 Rx tabs metoclopramide HCl 10 mg tablet 10 mg PO Q6H GASTROPARESIS 30 09/20/23 10/05/23 Rx (Reglan) days #120 tabs insulin glargine 100 unit/mL (3 35 unit subcut BID DIABETES 10/05/23 10/05/23 History mL) subcutaneous pen (Lantus Solostar U-100 Insulin) insulin lispro 100 unit/mL 25 unit subcut TIDAC DIABETES 10/05/23 10/05/23 History subcutaneous pen vancomycin 125 mg capsule 125 mg PO Q6H intestinal infection 04/10/24 Unknown History Allergy/AdvReac Type Severity Reaction Status Date / Time vancomycin Allergy local Verified 03/12/24 22:58 rash/hives to IV site Family History Father Polysubstance overdose Patient father young secondary to OD. Mother Iron deficiency anemia Other Asthma CVA (cerebral vascular accident) Diabetes Hypertension Thyroid disorder Surgical History H/O right knee surgery History of surgery on extremity Hx of knee surgery Social History housing: other details: Lives with his grandmother, aunt and mother. Smoking Status: Never smoker alcohol intake: current alcohol intake frequency: a few times a month substance use type: does not use ROS ROS ED Constitutional Constitutional ED: Denies chills or fever(s) Eyes Eyes: Denies blurry vision or change in vision ENT ENT ED: Reports sore throat; Denies rhinorrhea Cardiovascular Cardiovascular: Denies chest pain or palpitations Respiratory/Chest Respiratory/Chest: Denies cough or dyspnea Gastrointestinal Gastrointestinal: Reports abdominal pain, diarrhea, nausea and vomiting; Denies melena Genitourinary Genitourinary ED: Denies dysuria or hematuria Musculoskeletal Musculoskeletal: Denies back pain or neck pain Integumentary Denies abscess or rash Neurologic Neurologic: Denies headache(s) or weakness Allergic/Immunologic Allergic/Immunologic ED: Denies mouth swelling or urticaria EXAM Physical Exam Const Vital Signs: 04/10/24 18:40 04/10/24 18:45 Temperature 98.3 F Temperature Source Oral Pulse Rate 125 H Respiratory Rate 16 Respiratory Effort Normal Respiratory Pattern Normal Blood Pressure 101/45 L Blood Pressure Mean 63 Pulse Ox 100 Oxygen Delivery Method Room Air Positive well nourished and well developed General Appearance ED: well developed and NAD Neck supple Resp normal respiratory effort and clear to auscultation bilaterally Cardio regular rhythm Rate: tachycardic GI non-distended Palpation: soft and tender epigastric, LLQ, RLQ, LUQ, RUQ, periumbilical and suprapubic Neuro CN's II-XII intact bilaterally and no sensory deficits noted Sensorium / Orientation: alert Motor Exam: general weakness Psych Mood & Affect: depressed MDM MDM MDM Narrative Medical decision making narrative: Differential diagnosis includes cardiac dysrhythmia, cardiac ischemia, DKA, viral gastroenteritis, pancreatitis, dehydration, and electrolyte abnormality. EKG will be obtained to assess for cardiac dysrhythmia and cardiac ischemia. CBC will be obtained to assess for leukocytosis and anemia. Basic metabolic profile will be obtained to assess for electrolyte abnormality, hyperglycemia, and renal function. Urinalysis will be obtained to assess for urinary tract infection and glucosuria. Serum acetone will be obtained to assess for ketoacidosis. Lipase will be obtained to assess for pancreatitis. Venous blood gas will be obtained to assess for acidosis. Lab Data Attestation: I reviewed the patient's lab results. Lab results narrative: CBC was reviewed. There is a leukocytosis of 15.1. Hemoglobin was slightly low at 11.6. Platelets were normal. Basic metabolic profile was reviewed. Sodium was low at 122. Potassium was low at 6.0. Chloride was 78. CO2 was low at 6.0. Anion gap was elevated at 38. BUN was elevated at 28 and creatinine was elevated at 1.82. Glucose was elevated at 1202. Lipase was reviewed and was normal at 12. Serum acetone level was reviewed and was large. Venous blood gas was reviewed. pH was 7.03, pO2 was 109, pCO2 was 16.2. And O2 saturation was 95%. Labs: Laboratory Results - last 24 hr 04/10/24 18:50 WBC 15.1 H RBC 5.21 Hgb 11.6 L Hct 40.1 MCV 77.0 L MCH 22.3 L MCHC 28.9 L RDW Std Deviation 51.1 H RDW Coeff of Rabia 19.2 H Plt Count 336 MPV 11.0 Immature Gran % (Auto) 0.300 Neut % (Auto) 83.6 H Lymph % (Auto) 7.7 L Hawkins % (Auto) 7.8 Eos % (Auto) 0.1 Baso % (Auto) 0.5 Absolute Neuts (auto) 12.7 H Absolute Lymphs (auto) 1.16 Nucleated RBC % 0 Sodium 122 L Potassium 6.0 H* Chloride 78 L Carbon Dioxide 6.0 L* Anion Gap 38 H BUN 28 H Creatinine 1.82 H Estim Creat Clear Calc 71.34 Est GFR (MDRD) Af Amer 60 Est GFR (MDRD) Non-Af 49 L BUN/Creatinine Ratio 15.4 Glucose 1202 H* Calcium 9.6 Phosphorus > 9.0 H* Magnesium 2.7 H Lipase 12 L Acetone Level LARGE H ABG Data ABG results: ABG 04/10/24 19:02 Specimen Type MARILYNN Sample Site Not entered VBG pH 7.03 L* VBG pO2 109 H VBG Total CO2 < 5 L VBG O2 Sat (Calc) 95 H VBG Base Excess -27 L POC Mix VBG pCO2 Pt Tmp 16.2 L* O2 Delivery Device Not entered Crit Call To/Read Back Yes EKG Initial EKG: Attestation: I personally reviewed and interpreted this EKG as follows: Interpretation: Sinus Tachycardia (120), RBBB (Incomplete) and Non- Specific ST Changes Prior EKG tracings: available for review Prior: Unchanged (03/12/2024) Management Discussion w/another healthcare provider: Hospitalist Treatment and Re-Evaluation :: Patient was given IV fluids. Patient was given calcium gluconate. Patient was started on insulin drip. Patient was advised of his findings. Patient was advi sed of the need for hospitalization. Case was discussed with the hospitalist. She will admit the patient to her service. Patient understood and was agreeable with the plan. All questions were answered. Critical Care Time Critical Care Time: Yes Critical care time (excluding procedures): 30-74 minutes (37 minutes), Including time spent:, Discussing w/Patient &/or Family/Software Systems Analyst, Discussing w/Consultants, Arranging Admission or Transfer and Performing Direct Patient Care at Bedside Discharge Plan Dx/Rx/DC Orders Clinical Impression: DKA (diabetic ketoacidoses), Hyperkalemia, Nausea and vomiting Disposition Disposition: Acute Care Hospital [facility] Discharge Date/Time: 04/10/24 20:50
[2024-04-10] MEDS: 0.9% Normal Saline (1000mL) 1,000 ML 1000 ML IV ×2 (18:50→20:16)
[2024-04-10 19:01] LABS: Absolute Lymphocyte Count 1.16 X10^3/uL (0.83-4.51); Absolute Neutrophil Count 12.7 X10^3/uL (2.0-7.7); Basophil# 0.08 X10^3/uL; Basophil% 0.5 % (0-1); Eosinophil# 0.01 X10^3/uL; Eosinophils% 0.1 % (0-5); Hematocrit 40.1 % (40-54); Hemoglobin 11.6 g/dL (13.0-16.5); Lymphocyte # 1.16 X10^3/ul (0.83-4.51); Lymphocyte % 7.7 % (19-41); Mean Corp Hgb Conc 28.9 g/dL (32-36); Mean Corpuscular Hgb 22.3 pg (27.0-32.0); Monocyte# 1.18 X10^3/uL; Monocyte% 7.8 % (0-10); NRBC Flagged by Analyzer 0 % (0-5); Neutrophil # 12.65 X10^3/uL (2.7-7.7); Neutrophil % 83.6 % (47-70); Platelet Count 336 K/mm3 (150-450); RBC Distribution Width CV 19.2 % (11.6-14.6); RBC Distribution Width SD 51.1 fl (35.1-43.9); Red Blood Count 5.21 M/mm3 (4.6-6.2); White Blood Count 15.1 K/mm3 (4.4-11.0)
[2024-04-10 19:06] LABS: Blood Gas Specimen Type VEN; O2 Delivery Device Not entered; SITE Not entered; VBG BASE EXCESS -27 mmol/L (-1.0-3.5); VBG PO2 109 mmHg (25-40); VBG SO2 95 % (50-70); VBG TCO2 < 5 mmol/L (23-33); VBG pCO2 16.2 mmHg (41-51); VBG pH 7.03 (7.32-7.42)
--- NOTE | 2024-04-10 19:13 | CPS ---
Critical VBG values, Dr. Mix aware.
[2024-04-10 19:23] LABS: Anion Gap 38 (5-15); BUN 28 mg/dL (7-18); BUN/Creat Ratio 15.4 RATIO (10-20); Calcium,Total 9.6 mg/dL (8.5-10.1); Chloride 78 mmol/L (98-107); Creatinine, Serum 1.82 mg/dL (0.70-1.30); EST Glomerular Filtration Rate 49 mL/min (>60); Est Glom Filt Rate - Afr Amer 60 mL/min (>60); Estimated Creatinine Clearance 71.34 ml/min; Glucose 1202 mg/dL (74-106); Lipase 12 U/L (13-75); Sodium Level 122 mmol/L (136-145)
--- NOTE | 2024-04-10 19:35 | PCM.HP.STD ---
HPI - General General Date of Admission: 04/10/24 Date of Service: 04/10/24 Chief Complaint: Fatigue, malaise, elevated BS, nausea, emesis, diarrhea, abdominal cramping. HPI Narrative The patient is a 23 y/o M w/ PMHx: Hx VTE (DVT, PE on xarelto), Uncontrolled Diabetes mellitus type I with frequent DKA presentations noncomplaint with his insulin and diet, Chronic severe protein calorie malnutrition, Hx 2021 pericarditis/pericardial infection (Treated at [facility], MSSA infection treated with abx therapy), History Stage II L buttock pressure, Hx dysphagia secondary to severe LA grade D erosive esophagitis with candidiasis, Chronic anemia/Fe deficiency anemia, Anxiety and Depression, GERD, most recent discharge 03/15/2024 following admission and evaluation as well as treatment for DKA and acute kidney injury with concurrently suspected C. difficile colitis with labs demonstrating a positive C. difficile PCR, positive C. difficile antigen but a negative C. difficile toxin however given significant persistent diarrhea patient was treated with a 10-day course of oral vancomycin with stop date 03/22/24 in addition to ongoing evaluation of chronic iron deficiency anemia with 2 doses of IV iron administered during his previous admission with planned repeat evaluation outpatient and further iron studies at that time who now represents to the [facility] ED on 04/10/24 with history of nausea, emesis, abdominal cramping and discomfort, onset of diarrhea over the last 24 hours in addition to elevated blood sugars with concern for recurrent DKA prompting ED reevaluation. Patient does report that he tries to be compliant but likely he has been noncompliant with his Reglan, insulin and from discussion unfortunately may have inappropriately missed several doses of his oral vancomycin but is unable to be certain reporting 3 but his initial stop date was supposed to be the and he states he has at least a couple days left which timeline montgomery does not make sense. Workup in the ED included T98.3, heart rate 125, BP 101/45, respiratory rate 16, 100% on room air, CBC with WBC 15.1, hemoglobin 11.6, MCV 77, platelet 336 with left shift, VBG with pH 7.03, pO2 109, BMP with sodium 122, potassium 6.0 but no report on whether sample is been hemolyzed or not unfortunately, chloride 78, carbon dioxide 6, anion gap 38, BUN/creatinine 28/1.82, GFR 49, glucose 1202, lipase 12, acetone large. CXR pending upon requested evaluation of patient. In the ED patient administered 2 L normal saline, calcium gluconate, zofran and additionally initiated on insulin drip. [facility] Medical History Anticoagulant long-term use Anemia due to chronic illness Tatums grade D esophagitis Minerva esophagitis Gastroparesis Recurrent pulmonary embolism AP window (aortopulmonary window) Anxiety Depression DVT (deep venous thrombosis) Hypokalemia Noncompliance with diabetes treatment History of medication noncompliance Severe protein-calorie malnutrition Kidney disease Hypokalemia Non-smoker Asthma Psychosocial problem femur surgery Diabetes mellitus type 1 GERD (gastroesophageal reflux disease) Home Medications ?Medication ?Instructions ?Recorded ?Last Taken ?Type insulin lispro 100 unit/mL See Protocol subcut ACHS DIABETES 07/24/22 10/05/23 History subcutaneous pen (Humalog KwikPen (U-100) Insulin) blood sugar diagnostic (OneTouch 02/27/23 Unknown History Verio test strips) flash glucose sensor (FreeStyle 02/27/23 Unknown History Niru 14 Day Sensor kit) pen needle, diabetic 32 gauge x 02/27/23 Unknown History (BD Ultra-Fine Lorin Pen Needle) potassium chloride 20 mEq 40 meq PO DAILY SUPPLEMENT 08/15/23 10/05/23 History tablet,extended release(part/cryst) rivaroxaban 20 mg tablet (Xarelto) 20 mg PO DINNER BLOOD THINNER #30 09/17/23 10/05/23 Rx tabs metoclopramide HCl 10 mg tablet 10 mg PO Q6H GASTROPARESIS 30 09/20/23 10/05/23 Rx (Reglan) days #120 tabs pantoprazole 40 mg tablet,delayed 40 mg PO BID ACID REFLUX 30 days 09/20/23 Unknown Rx release (Protonix) #60 tabs insulin glargine 100 unit/mL (3 35 unit subcut BID DIABETES 10/05/23 10/05/23 History mL) subcutaneous pen (Lantus Solostar U-100 Insulin) insulin lispro 100 unit/mL 25 unit subcut TIDAC DIABETES 10/05/23 10/05/23 History subcutaneous pen mirtazapine 15 mg tablet 7.5 mg (1/2 x 15 mg) PO QHS 03/15/24 Unknown Rx DEPRESSION 30 days #30 tabs vancomycin 25 mg/mL oral solution 125 mg (5 mL) PO Q6 8 days #160 mL 03/15/24 Unknown Rx (Firvanq) Allergy/AdvReac Type Severity Reaction Status Date / Time vancomycin Allergy local Verified 03/12/24 22:58 rash/hives to IV site Family History Father Polysubstance overdose Patient father young secondary to OD. Mother Iron deficiency anemia Other Asthma CVA (cerebral vascular accident) Diabetes Hypertension Thyroid disorder Surgical History H/O right knee surgery History of surgery on extremity Hx of knee surgery Social History housing: other details: Lives with his grandmother, aunt and mother. Smoking Status: Never smoker alcohol intake: current alcohol intake frequency: a few times a month substance use type: does not use ROS ROS Narrative Admission Review of Systems: CONSTITUTIONAL: No weight loss, fever, chills, + weakness or fatigue. HEENT: + Poor dentition. Eyes: No visual loss, blurred vision, double vision or yellow sclerae. Ears, Nose, Throat: No hearing loss, sneezing, congestion, runny nose or sore throat. SKIN: + History stage II left buttock pressure ulcer/sacral ulcers that have resolved, various abrasions, staged ecchymoses. CARDIOVASCULAR: No chest pain, chest pressure or chest discomfort, palpitations, edema, orthopnea, syncopal events. RESPIRATORY: No dyspnea, cough or sputum, wheezing, hemoptysis. GASTROINTESTINAL: + anorexia, nausea, vomiting, abdominal pain/cramping, diarrhea. No melena, BRBPR. GENITOURINARY: + Polyuria. No dysuria, urgency or retention. NEUROLOGICAL: No headache, dizziness, syncope, paralysis, ataxia, numbness or tingling in the extremities, focal weakness, change in bowel or bladder control, seizure. MUSCULOSKELETAL:+ muscle, back pain, joint pain or stiffness. HEMATOLOGIC: + Chronic anemia, easy bleeding/bruising. LYMPHATICS: No enlarged nodes. No history of splenectomy. PSYCHIATRIC: + History of anxiety and depression. ENDOCRINOLOGIC: No reports of sweating, cold or heat intolerance. + polyuria. ALLERGIES: + Lactose intolerant. Vital Signs Vital Signs Vital Signs: 04/10/24 18:40 04/10/24 18:45 Temperature 98.3 F Temperature Source Oral Pulse Rate 125 H Respiratory Rate 16 Respiratory Effort Normal Respiratory Pattern Normal Blood Pressure 101/45 L Blood Pressure Mean 63 Pulse Ox 100 Oxygen Delivery Method Room Air Weight Weight: 196 lb 3.382 oz Body Mass Index (BMI) 25.9 Physical Exam Narrative Physical Examination: General: Awake, alert, oriented x 3 and cooperative, laying in the ED bed, fatigued, ill-appearing, intermittent dry heaving. Skin: Normal color, normal turgor, no icterus, no cyanosis, resolved posterior pressure ulcers, occasional staged ecchymoses, abrasion although skin certainly appears improved from several previous admissions. HEENT: AT/NC, EOMI, PERRLA, dry MM, poor dentition, no carotid bruits or JVD noted. Lungs: Diminished, greater bases, mildly increased respiratory rate but no distress, no rales, ronchi or wheezing. Heart: Mildly tachycardic with regular rhythm; no gallop, rub audible. Abdomen: Soft, mild generalized discomfort with no rebound or guarding, no distention, hyperactive BS, no appreciated HSM. Extremities: No cyanosis, clubbing, or edema, see skin. Neurological: Patient awake, alert, oriented as noted, cognitive function intact; pupils equally reactive to light and accommodation, cranial nerves grossly normal, moving all 4 extremities, no focal deficits, strength severely globally decreased secondary to acute presentation complaints. Psychiatric: Affect appears fatigued, ill-appearing, no acute evidence of depressive or anxiety feelings but does have underlying history. Results Lab / Micro Data 04/10/24 18:50 04/10/24 18:50 Labs: Laboratory Results - last 24 hr 04/10/24 18:50: WBC 15.1 H, RBC 5.21, Hgb 11.6 L, Hct 40.1, MCV 77.0 L, MCH 22.3 L, MCHC 28.9 L, RDW Std Deviation 51.1 H, RDW Coeff of Rabia 19.2 H, Plt Count 336, MPV 11.0, Immature Gran % (Auto) 0.300, Neut % (Auto) 83.6 H, Lymph % (Auto) 7.7 L, Park % (Auto) 7.8, Eos % (Auto) 0.1, Baso % (Auto) 0.5, Absolute Neuts (auto) 12.7 H, Absolute Lymphs (auto) 1.16, Nucleated RBC % 0, Sodium 122 L, Potassium 6.0 H*, Chloride 78 L, Carbon Dioxide 6.0 L*, Anion Gap 38 H, BUN 28 H, Creatinine 1.82 H, Estim Creat Clear Calc 71.34, Est GFR (MDRD) Af Amer 60, Est GFR (MDRD) Non-Af 49 L, BUN/Creatinine Ratio 15.4, Glucose 1202 H*, Calcium 9.6, Lipase 12 L, Acetone Level LARGE H ABG Data ABG results: ABG 04/10/24 19:02 Specimen Type MARILYNN Sample Site Not entered VBG pH 7.03 L* VBG pO2 109 H VBG Total CO2 < 5 L VBG O2 Sat (Calc) 95 H VBG Base Excess -27 L POC Mix VBG pCO2 Pt Tmp 16.2 L* O2 Delivery Device Not entered Crit Call To/Read Back Yes Assessment & Plan Assessment/Plan (1) DKA (diabetic ketoacidoses): PLAN: Plan The patient is a 23 y/o M w/ PMHx: Hx VTE (DVT, PE on xarelto), Uncontrolled Diabetes mellitus type I with frequent DKA presentations noncomplaint with his insulin and diet, Chronic severe protein calorie malnutrition, Hx 2021 pericarditis/pericardial infection (Treated at [facility], MSSA infection treated with abx therapy), History Stage II L buttock pressure, Hx dysphagia secondary to severe LA grade D erosive esophagitis with candidiasis, Chronic anemia/Fe deficiency anemia, Anxiety and Depression, GERD, Hx C-difficile colitis who presents to the [facility] ED on 04/10/24 with fatigue, malaise, elevated blood sugars and nausea with concern for DKA prompting evaluation. #1. DKA w/ Diabetes mellitus type I: Patient initiated in the ED on insulin drip. Will admit to the ICU, will request service unit operator oil well consultation per protocol, continue on insulin drip, check serial K+, glucose w/ IVF changes pending these levels, serial chemistry, obtain mag, phos daily w/ repletion as needed, transition to home SC regimen when gap closed w/ overlap on drip, nutrition consultation. HgbA1c recently 12/28/2019 210.0%, repeat requested. Nutrition consultation for education and teaching. #2. Electrolyte disturbances w/ Metabolic acidosis: Admission BMP with sodium 122, potassium 6.0 but no report on whether sample is been hemolyzed or not unfortunately, chloride 78, carbon dioxide 6, anion gap 38, BUN/creatinine 28/1.82, GFR 49, glucose 1202, lipase 12, acetone large. Will continue treatment as noted #1, will administer bicarb amp x 2 with planned repeat VBG and if not improving will initiate on bicarb drip, continue serial BMPs as noted. Patient as noted with potassium 2.0 but unclear if hemolyzed with insulin drip being initiated, calcium gluconate administered, additionally will cautiously administer single dose of Kayexalate and continue to treat as needed. Maintain on telemetry monitoring. #3. Leukocytosis, possibly reactive with acute presentation as noted however patient has had recurrent nausea, emesis and diarrhea with concern that he incorrectly took his oral vancomycin with recently suspected C. difficile colitis: Admission CBC with WBC 15.1 with left shift, given #1 will continue to aggressively hydrate, will continue treatment as noted #1, repeat CBC in AM, procalcitonin pending, will continue oral vancomycin and again educated patient of the appropriateness of taking these medications as prescribed, will request repeat stool enteric and C. difficile. #4. Acute kidney injury: Secondary to #1, #2, #3 with as noted GI losses. Admission BUN/Cr 28/1.82, prior baseline creatinine noted to be 0.7-0.9. Will continue to aggressively hydrate as noted above per DKA protocol, hold nephrotoxic medications and repeat BMP serially as noted. #5. GERD: Maintained on PPI cautiously especially given C. difficile history and now recurrent diarrhea unfortunately possibly secondary to incorrectly taking his oral vancomycin regimen; however, given GI bleed history risk-benefit will need to continue to be monitored. #6. Chronic microcytic anemia/Fe deficiency anemia: Admission hemoglobin 11.6, MCV 77, baseline hemoglobin primarily 9-11 however recently patient has decreased with noted 03/15/2024 hemoglobin 8.2, receiving 2 doses of IV iron during previous presentation with plan to follow-up outpatient with repeat iron studies, will continue to trend CBC, encourage continued outpatient evaluation. #7. History of dysphagia secondary to severe LA grade D erosive esophagitis with candidiasis: Completed oral antifungal regimen, no ongoing diet alterations per speech therapy, continued on PPI. #8. History of VTE: Patient with history DVT, PE, we will continue patient home Xarelto regimen. #9. Lactose intolerant: We will temporarily hold patient home chronic lactase regimen until oral diet started, resume once appropriate. #10. Anxiety and depression: We will continue patient home mirtazapine regimen. #11. Severe chronic protein and calorie malnutrition: Patient with significant underlying comorbidities as well as diabetic disease with noncompliance, BMI 25.9 however muscle wasting evident, nutrition is consulted as noted above for education and teaching as well as recommendations to maximize patient malnutrition treatment. #12. History of chronic pressure ulcers: Patient with previous significant sacral and buttock pressure ulcers, currently resolved, encourage continued frequent self evaluation, positional changes and routine movement. Again strongly recommended the patient continue to monitor for any wounds. #13. DVT prophylaxis: Continue home Xarelto regimen. #14. CODE STATUS: Full Code. Charges/Coding Visit Charges Inpatient E&M: 79090 Init Hosp L3
[2024-04-10] MEDS: Calcium Gluconate IV 3 GM in Syringe 1 EACH IV (20:06)
[2024-04-10] MEDS: Ondansetron 4 MG/2 ML Vial IV (20:06)
--- NOTE | 2024-04-10 20:15 | RAD_ITS ---
INDICATION: Cough EXAMINATION/TECHNIQUE: X-RAY - portable upright AP chest x-ray COMPARISON: 03/13/2024 FINDINGS: LINES/DEVICES: None. LUNGS: No consolidation, edema or effusion. No pneumothorax. MEDIASTINUM AND CARDIOVASCULAR STRUCTURES: Cardiac silhouette not enlarged. Central airways and mediastinal contour are unremarkable. BONES AND SOFT TISSUES: Unremarkable. RAD/Chest 1 View (Portable) IMPRESSION: No radiographic evidence of acute cardiopulmonary disease. Electronically Signed: Omar Gordillo MD at 21:26 EDT ,
[2024-04-10] MEDS: Insulin Lispro 100 UNIT in 0.9% Normal Saline (100mL Bag) 99 ML 8.9 UNIT CONT INF ×2 (20:16→21:11)
[2024-04-10 20:53] LABS: Magnesium 2.7 mg/dL (1.6-2.6)
[2024-04-10 20:54] LABS: Phosphorus > 9.0 mg/dL (2.5-4.9)
[2024-04-10 20:56] LABS: Bacteria 0 SEEN /hpf (None Seen); Mucous, Urine 0 SEEN /hpf (<or=2+); Red Blood Cells-Urine 0 SEEN /hpf (0-5); White Blood Cells 0 SEEN /hpf (0-5)
[2024-04-10 21:16] LABS: Color, Urine Yellow (Yellow); Glucose, Dipstick 1000 mg/dl (Normal); Leukocyte Esterase-Dipstick Negative /ul (Negative); Nitrite-Dipstick Negative (Negative); Occult Blood-Urine Negative /ul (Negative); Protein-Dipstick 15 mg/dl (Negative); Urine Bilirubin Dipstick Negative (Negative); Urine Clarity Sl. Cloudy (Clear); Urine Urobilinogen Normal (Normal)
[2024-04-10 21:23] LABS: Ketone-Dipstick 150 mg/dl (Negative)
[2024-04-10 21:30] LABS: Squamous Epithelial Cells - UA 0-5 SEEN /hpf (0-5)
[2024-04-10 21:56] LABS: Procalcitonin 0.34 ng/mL (0.00-0.09)
[2024-04-10 22:03] LABS: Anion Gap 38 (5-15); BUN 29 mg/dL (7-18); BUN/Creat Ratio 14.9 RATIO (10-20); Calcium,Total 9.5 mg/dL (8.5-10.1); Chloride 83 mmol/L (98-107); Creatinine, Serum 1.94 mg/dL (0.70-1.30); EST Glomerular Filtration Rate 46 mL/min (>60); Est Glom Filt Rate - Afr Amer 55 mL/min (>60); Estimated Creatinine Clearance 66.93 ml/min; Glucose 1054 mg/dL (74-106); Potassium 5.4 mmol/L (3.5-5.1); Sodium Level 125 mmol/L (136-145)
[2024-04-10] MEDS: Vancomycin 125 MG/5 ML Susp PO.SYRINGE PO (22:20)
[2024-04-10] MEDS: Sodium Bicarbonate 8.4% 50 ML Syringe 50 MEQ IV ×2 (22:26)
[2024-04-10] MEDS: 0.9% Saline Lock 10 ML Syringe IV ×2 (22:26→23:26)
[2024-04-10] MEDS: 0.9% Normal Saline (1000mL) 1,000 ML 999 ML IV (22:27)
[2024-04-10 22:36] LABS: Blood Gas Specimen Type VEN; O2 Delivery Device Room Air; SITE Not entered; Time Given 22:33:54; VBG BASE EXCESS -20 mmol/L (-1.0-3.5); VBG Bicarbonate 9 mmol/L (22-26); VBG PO2 60 mmHg (25-40); VBG SO2 83 % (50-70); VBG TCO2 10 mmol/L (23-33); VBG pH 7.16 (7.32-7.42)
[2024-04-10 23:17] LABS: Glucose 909 mg/dL (74-106)
[2024-04-10] MEDS: Sodium Bicarbonate 100 MEQ in Dextrose 5%-Water (1000mL Bag) 1,000 ML IV (23:26)
[2024-04-10] MEDS: 0.9% Normal Saline (1000mL) 1,000 ML 150 ML IV (23:26)
[2024-04-11] VITALS (21 sets, daily range): BP systolic 92–123; BP diastolic 47–72; PULSE 112–129; RESP 12–19; TEMP 36.4–36.8; O2SAT 94–99; BMI 26.2
[2024-04-11 00:18] LABS: Anion Gap 30 (5-15); BUN 28 mg/dL (7-18); BUN/Creat Ratio 14.1 RATIO (10-20); Calcium,Total 9.8 mg/dL (8.5-10.1); Chloride 94 mmol/L (98-107); Creatinine, Serum 1.98 mg/dL (0.70-1.30); EST Glomerular Filtration Rate 45 mL/min (>60); Est Glom Filt Rate - Afr Amer 54 mL/min (>60); Estimated Creatinine Clearance 65.57 ml/min; Glucose 714 mg/dL (74-106); Potassium 3.5 mmol/L (3.5-5.1); Sodium Level 135 mmol/L (136-145)
[2024-04-11 01:34] LABS: Glucose 575 mg/dL (74-106)
[2024-04-11] MEDS: KCL 20MEQ in 0.45%NS 20 MEQ/1,000 ML IV.SOLN. 150 MEQ IV (02:08)
[2024-04-11 02:21] LABS: Bedside Glucose > 500 mg/dL (74-106)
[2024-04-11 04:26] LABS: Absolute Lymphocyte Count 1.61 X10^3/uL (0.83-4.51); Absolute Neutrophil Count 12.7 X10^3/uL (2.0-7.7); Basophil# 0.06 X10^3/uL; Basophil% 0.4 % (0-1); Eosinophil# 0.02 X10^3/uL; Eosinophils% 0.1 % (0-5); Hematocrit 37.8 % (40-54); Hemoglobin 12.1 g/dL (13.0-16.5); Lymphocyte # 1.61 X10^3/ul (0.83-4.51); Lymphocyte % 10.1 % (19-41); Mean Corpuscular Hgb 21.9 pg (27.0-32.0); Mean Corpuscular Volume 68.5 fL (80-94); Mean Platelet Vol. 9.7 fl (6.2-12.0); Monocyte# 1.53 X10^3/uL; Monocyte% 9.6 % (0-10); NRBC Flagged by Analyzer 0 % (0-5); Neutrophil # 12.69 X10^3/uL (2.7-7.7); Neutrophil % 79.2 % (47-70); POSITIVE DIFFERENTIAL YES; POSITIVE MORPHOLOGY YES; Platelet Count 345 K/mm3 (150-450); RBC Distribution Width CV 20.2 % (11.6-14.6); RBC Distribution Width SD 45.7 fl (35.1-43.9); Red Blood Count 5.52 M/mm3 (4.6-6.2)
[2024-04-11 04:53] LABS: AST(SGOT) 19 U/L (15-37); Alanine Aminotransfer ALT/SGPT 27 U/L (16-61); Albumin, Serum 3.9 g/dL (3.2-5.0); Alkaline Phosphatase 149 U/L (45-117); Anion Gap 17 (5-15); BUN 26 mg/dL (7-18); BUN/Creat Ratio 13.9 RATIO (10-20); Calcium,Total 9.9 mg/dL (8.5-10.1); Chloride 101 mmol/L (98-107); Creatinine, Serum 1.87 mg/dL (0.70-1.30); EST Glomerular Filtration Rate 48 mL/min (>60); Est Glom Filt Rate - Afr Amer 58 mL/min (>60); Estimated Creatinine Clearance 69.43 ml/min; Globulin 3.8 g/dL (2.2-4.2); Glucose 329 mg/dL (74-106); Potassium 3.6 mmol/L (3.5-5.1); Protein, Total 7.7 g/dL (6.4-8.2); Sodium Level 140 mmol/L (136-145)
[2024-04-11 05:04] LABS: Differential Indicated SCAN CRITERIA MET
[2024-04-11 05:12] LABS: Anisocytosis 2+; Differential Comment SCANNED
[2024-04-11 07:20] LABS: Bedside Glucose 375 mg/dL (74-106)
[2024-04-11 07:20] LABS: Bedside Glucose 292 mg/dL (74-106)
[2024-04-11 07:20] LABS: Bedside Glucose 391 mg/dL (74-106)
[2024-04-11 07:20] LABS: Bedside Glucose 276 mg/dL (74-106)
[2024-04-11 07:20] LABS: Bedside Glucose 252 mg/dL (74-106)
[2024-04-11 07:20] LABS: Bedside Glucose 237 mg/dL (74-106)
[2024-04-11] MEDS: KCL 20MEQ in D5.45NS 20 MEQ/1,000 ML IV.SOLN. 150 MEQ IV ×3 (08:17→21:30)
[2024-04-11 08:40] LABS: Bedside Glucose 223 mg/dL (74-106)
[2024-04-11 08:44] LABS: Bedside Glucose > 500 mg/dL (74-106)
[2024-04-11] MEDS: Insulin Lispro 100 UNIT in 0.9% Normal Saline (100mL Bag) 99 ML CONT INF (08:58)
[2024-04-11 09:20] LABS: Bedside Glucose 235 mg/dL (74-106)
[2024-04-11] MEDS: Pantoprazole Sodium 40 MG Tablet PO ×2 (10:02→21:31)
[2024-04-11 10:22] LABS: Bedside Glucose 244 mg/dL (74-106)
--- NOTE | 2024-04-11 10:51 | PCM.PN.HOSP ---
Reason for Visit Reason for Visit: Diagnoses Type 2 diabetes mellitus with ketoacidosis without coma (04/10/24) Subjective Subjective Patient admitted yesterday evening for recurrent DKA. Seen at bedside this morning. Patient was laying comfortably in bed, conversing normally, in no acute distress. I saw the patient during her recent admission and he appears similar today to previous. Patient states he feels better this morning than he did yesterday. Denies any nausea or episodes of vomiting this morning. He is starting to regain an appetite now but still does not feel as hungry as normal. Denies any fevers or chills. Denies any episodes of diarrhea this morning. No other concerns. Objective Data Objective Data Vital Signs: Vital Signs Temp Pulse Resp BP Pulse Ox O2 Del Method 97.6 F L 122 H 17 106/59 L 98 Room Air 04/11/24 04:00 04/11/24 09:00 04/11/24 09:00 04/11/24 09:00 04/11/24 09:00 04/11/24 09:00 Oxygen Delivery Method Room Air Weight: 90.2 kg Body Mass Index (BMI) 26.2 Intake & Output: Intake and Output for Last 24 Hours 04/09/24 04/10/24 04/11/24 23:59 23:59 23:59 Intake Total 3038.16 / 3038.16 2547.37 / 2547.37 Output Total 300 / 300 600 / 600 Balance 2738.16 / 2738.16 1947.37 / 1947.37 Medical Nutrition Assessment Dietitian: Malnutrition Criteria Met Start: 04/11/24 10:18 Freq: Status: Active Protocol: Document 04/11/24 10:18 LOU (Rec: 04/11/24 10:18 LOU [id number]) Nutrition Malnutrition Evidence of Malnutrition Exists Yes Malnutrition (severe): Acute Illness/Injury Evidenced By Suboptimal Energy Intake ( Severe),Weight Loss (Severe) Clinical Problem Acute Disease or Injury Related Malnutrition Etiology related to DKA and issues w/ n /v/d Signs/Symptoms as evidenced by poor po intake x past several days and current NPO status and 3.6% wt loss in < 1 wk Status Active Problem Recommendation Dietitian Recommendations/Changes As medically able, rec ZACH to CHO Controlled - lactose intolerant As medically able, rec 4 oz glucerna shake tid w/ medpass for increased nutrition if consumed Will attempt diet education at time of follow up if pt agreeable. Lab / Micro Data 04/11/24 04:15 04/11/24 10:20 Labs: Laboratory Results - last 24 hr 04/10/24 18:41: POC Glucose > 500 H* 04/10/24 18:50: WBC 15.1 H, RBC 5.21, Hgb 11.6 L, Hct 40.1, MCV 77.0 L, MCH 22.3 L, MCHC 28.9 L, RDW Std Deviation 51.1 H, RDW Coeff of Rabia 19.2 H, Plt Count 336, MPV 11.0, Immature Gran % (Auto) 0.300, Neut % (Auto) 83.6 H, Lymph % (Auto) 7.7 L, Woodruff % (Auto) 7.8, Eos % (Auto) 0.1, Baso % (Auto) 0.5, Absolute Neuts (auto) 12.7 H, Absolute Lymphs (auto) 1.16, Nucleated RBC % 0, Sodium 122 L, Potassium 6.0 H*, Chloride 78 L, Carbon Dioxide 6.0 L*, Anion Gap 38 H, BUN 28 H, Creatinine 1.82 H, Estim Creat Clear Calc 71.34, Est GFR (MDRD) Af Amer 60, Est GFR (MDRD) Non-Af 49 L, BUN/Creatinine Ratio 15.4, Glucose 1202 H*, Calcium 9.6, Phosphorus > 9.0 H*, Magnesium 2.7 H, Lipase 12 L, Acetone Level LARGE H 04/10/24 20:46: Urine Color Yellow, Urine Clarity Sl. Cloudy, Urine pH 5.0, Ur Specific [place] 1.010, Urine Protein 15 H, Urine Glucose (UA) 1000 H, Urine Ketones 150 A*, Urine Occult Blood Negative, Urine Nitrite Negative, Urine Bilirubin Negative, Urine Urobilinogen Normal, Ur Leukocyte Esterase Negative, Urine RBC 0 SEEN, Urine WBC 0 SEEN, Ur Squamous Epith Cells 0-5 SEEN, Urine Bacteria 0 SEEN, Urine Mucus 0 SEEN 04/10/24 21:20: Sodium 125 L, Potassium 5.4 H, Chloride 83 L, Carbon Dioxide 4.0 L*, Anion Gap 38 H, BUN 29 H, Creatinine 1.94 H, Estim Creat Clear Calc 66.93, Est GFR (MDRD) Af Amer 55 L, Est GFR (MDRD) Non-Af 46 L, BUN/Creatinine Ratio 14.9, Glucose 1054 H*, Calcium 9.5, Procalcitonin 0.34 H 04/10/24 21:23: POC Glucose > 500 H* 04/10/24 22:20: Glucose 909 H* 04/10/24 22:30: Glucose Cancelled 04/10/24 23:30: Sodium 135 L, Potassium 3.5, Chloride 94 L, Carbon Dioxide 11.0 L, Anion Gap 30 H, BUN 28 H, Creatinine 1.98 H, Estim Creat Clear Calc 65.57, Est GFR (MDRD) Af Amer 54 L, Est GFR (MDRD) Non-Af 45 L, BUN/Creatinine Ratio 14.1, Glucose 714 H*, Calcium 9.8 04/11/24 00:45: Glucose 575 H* 04/11/24 02:10: POC Glucose 391 H 04/11/24 03:08: POC Glucose 375 H 04/11/24 04:09: POC Glucose 292 H 04/11/24 04:15: WBC 16.0 H, RBC 5.52, Hgb 12.1 L, Hct 37.8 L, MCV 68.5 L D, MCH 21.9 L, MCHC 32.0 D, RDW Std Deviation 45.7 H, RDW Coeff of Rabia 20.2 H, Plt Count 345, MPV 9.7, Immature Gran % (Auto) 0.600, Neut % (Auto) 79.2 H, Lymph % (Auto) 10.1 L, Woodruff % (Auto) 9.6, Eos % (Auto) 0.1, Baso % (Auto) 0.4, Absolute Neuts (auto) 12.7 H, Absolute Lymphs (auto) 1.61, Nucleated RBC % 0, Differential Comment SCANNED, Diff Path Review May foll, Anisocytosis 2+, Sodium 140, Potassium 3.6, Chloride 101, Carbon Dioxide 22.0, Anion Gap 17 H, BUN 26 H, Creatinine 1.87 H, Estim Creat Clear Calc 69.43, Est GFR (MDRD) Af Amer 58 L, Est GFR (MDRD) Non-Af 48 L, BUN/Creatinine Ratio 13.9, Glucose 329 H, Hemoglobin A1c 11.0 H, Calcium 9.9, Total Bilirubin 1.20 H, AST 19, ALT 27, Alkaline Phosphatase 149 H, Total Protein 7.7, Albumin 3.9, Globulin 3.8, Albumin/Globulin Ratio 1.0 04/11/24 05:04: POC Glucose 276 H 04/11/24 06:05: POC Glucose 252 H 04/11/24 07:02: POC Glucose 237 H 04/11/24 08:14: POC Glucose 223 H 04/11/24 08:57: POC Glucose 235 H 04/11/24 10:00: POC Glucose 244 H ABG Data ABG results: ABG 04/10/24 04/10/24 19:02 22:31 Specimen Type MARILYNN MARILYNN Sample Site Not entered Not entered VBG pH 7.03 L* 7.16 L* VBG pO2 109 H 60 H VBG HCO3 9 L VBG Total CO2 < 5 L 10 L VBG O2 Sat (Calc) 95 H 83 H VBG Base Excess -27 L -20 L POC Mix VBG pCO2 Pt Tmp 16.2 L* 25.0 L O2 Delivery Device Not entered Room Air Crit Call To/Read Back Yes Yes Blood Gas Notified Whom DR VIVAS Blood Gas Notified Time 22:33:54 Radiography Diagnostic Testing: Radiology Impression Chest X-Ray 04/10/24 20:15 IMPRESSION: No radiographic evidence of acute cardiopulmonary disease. Electronically Signed: Omar Gordillo MD at 21:26 EDT Reading Location ID and State: [address] [place] [address] Tel , Service support , Physical Exam Const alert, oriented x3, no apparent distress and average body habitus Constitutional Narrative: Young male, mildly flat affect but otherwise sitting up comfortably bed, conversing normally and in no acute distress. General Appearance: cooperative and comfortable HEENT normocephalic, head/scalp atraumatic, hearing grossly normal bilaterally and nasal mucous membranes and turbinates normal HEENT Narrative: Dry mucous membranes. Eyes PERRL, EOMs intact bilaterally and conjunctivae normal Neck full ROM Chest inspection of chest normal Resp normal respiratory effort, normal air movement, no use of accessory muscles and clear to auscultation bilaterally Cardio no murmurs and peripheral pulses 2+ throughout Cardio Narrative: Tachycardic, regular rhythm. GI normal to inspection, nondistended, normoactive bowel sounds, soft to palpation, non-tender and non-distended Back/Spine normal ROM Extremity normal to inspection, full ROM and no pedal edema Skin no rashes or lesions noted Neuro moves all extremities and no focal motor deficits Speech: speech normal Psych mental status grossly normal Assessment & Plan Assessment/Plan (1) DKA (diabetic ketoacidoses): (2) C. difficile enteritis: (3) Nausea and vomiting: (4) History of diabetes mellitus: PLAN: Plan Patient is a 23-year-old male who presented to [facility] ED on 04/10/2024 with DKA. 1. DKA, improving; poorly controlled type 1 diabetes mellitus with history of recurrent admissions for DKA and medication nonadherence ? Suspected secondary to medication noncompliance at home. Home regimen of Lantus 35 units twice daily, lispro 25 units with meals plus sliding scale insulin as needed. Labs on admit consistent with DKA. Started on insulin drip on admission with orders per DKA protocol. Anion gap resolved on 04/11, planning for transition off drip prior to dinner on 04/11. Follow-up BMP at 4 PM and then monitor BMP daily going forward. 2. Leukocytosis ? Most likely reactive in setting of DKA as noted above as well as somewhat elevated due to hemoconcentration. Unclear if patient completed treatment for C. difficile as noted below, restarted p.o. vancomycin. No need for other antibiotics at this time. Monitor daily CBC. 3. RADHA, improving ? Creatinine 1.98 on admit, baseline creatinine around 0.8-1.0. Presumed prerenal etiology due to fluid losses from DKA as noted above. Creatinine improving with IV fluids. Monitor BMP daily and urine output. 4. Severe chronic protein and calorie malnutrition ? Nutrition consulted. Will plan to provide Ensure drinks with meals once patient has been transitioned off insulin drip and diet is restarted. 5. Recent history of C. difficile infection ? Diagnosed during previous hospitalization at the beginning of March. Completed 3 days of p.o. vancomycin while inpatient and was discharged home with plan to complete 10-day course on 03/22. Patient reports not taking all doses and did have some diarrhea on admission. P.o. vancomycin restarted and will continue this for now. No need for retesting for C. 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 Chronic medical conditions: ? Chronic iron deficiency anemia: Hemoglobin 11-12 on admit, baseline around 8-9, likely hemoconcentrated on admission. Monitor daily CBC. Received IV iron infusions during last hospitalization, not on home p.o. iron supplementation. ? GERD, history of dysphagia secondary to severe erosive esophagitis with candidiasis: Stable. Continue home PPI twice daily. ? History of VTE: Continue home Xarelto. ? Anxiety/depression: Stable. Continue home mirtazapine. ? History of chronic pressure ulcers: Stable. No wound care needs at this time. ? Diabetic gastroparesis: Continue home Reglan. ? Lactose intolerance DVT prophylaxis: Xarelto CODE STATUS: Full code, verified Expected disposition: Home, 2 to 3 days Total clinical time spent by myself addressing the patient's medical issues, reviewing all the data, and collaborating with patient's care team: 35 minutes. Charges/Coding Visit Charges Inpatient E&M: 79582 Subs Hosp L2
--- NOTE | 2024-04-11 11:07 | CASEMGMT ---
Readmission Note: Index: 03/13-03/15/24. Dx: DKA Readmission: 04/10/24. Dx: DKA Pt was recently admitted with DKA and was treated and cleared medically to return home with his family support. On index stay, the pt was to DC home with a carb-controlled diet. The pt was prescribed Vancomycin for C-Diff as well. The pt was advised to keep a good eye on his BS levels and administer insulin as ordered. RN CM to the room at this time and the pt stated that he forgot to take all of his vancomycin. However, the pt stated to this RN CM that he was compliant with his diet. The pt states that he has a working CBGM and was able to take his insulin accordingly. Pt states that there was nothing that he could have done to prevent his current hospitalization. Moving forward, the plan is to treat the pt DKA and subsequently DC home. At this time, the pt denies homegoing needs. PT denies the need for HHC or OP therapy. Pt was previously a [facility] pt, however, they discontinued him from their services d/t noncompliance. Pt denies further questions or concerns at this time. CM to follow for safe DC from [facility].
[2024-04-11] MEDS: Vancomycin 125 MG/5 ML Susp PO.SYRINGE PO ×2 (11:08→17:07)
[2024-04-11 11:12] LABS: Anion Gap 9 (5-15); BUN 23 mg/dL (7-18); BUN/Creat Ratio 16.7 RATIO (10-20); Calcium,Total 8.9 mg/dL (8.5-10.1); Chloride 105 mmol/L (98-107); Creatinine, Serum 1.38 mg/dL (0.70-1.30); EST Glomerular Filtration Rate 68 mL/min (>60); Est Glom Filt Rate - Afr Amer 82 mL/min (>60); Estimated Creatinine Clearance 94.09 ml/min; Glucose 259 mg/dL (74-106); Potassium 3.3 mmol/L (3.5-5.1); Sodium Level 141 mmol/L (136-145)
[2024-04-11] MEDS: Metoclopramide 10 MG Tablet PO ×2 (11:13→17:07)
[2024-04-11 12:36] LABS: Bedside Glucose 224 mg/dL (74-106)
[2024-04-11 12:36] LABS: Bedside Glucose 219 mg/dL (74-106)
[2024-04-11 13:23] LABS: Bedside Glucose 220 mg/dL (74-106)
[2024-04-11 14:23] LABS: Bedside Glucose 209 mg/dL (74-106)
[2024-04-11 14:25] LABS: Anion Gap 6 (5-15); BUN 20 mg/dL (7-18); BUN/Creat Ratio 16.8 RATIO (10-20); Calcium,Total 8.7 mg/dL (8.5-10.1); Chloride 106 mmol/L (98-107); Creatinine, Serum 1.19 mg/dL (0.70-1.30); EST Glomerular Filtration Rate 80 mL/min (>60); Est Glom Filt Rate - Afr Amer 97 mL/min (>60); Estimated Creatinine Clearance 109.11 ml/min; Glucose 215 mg/dL (74-106); Potassium 3.3 mmol/L (3.5-5.1); Sodium Level 142 mmol/L (136-145)
[2024-04-11] MEDS: Insulin NPH Human 100 UNITS/ML PEN 15 UNITS SC (15:29)
[2024-04-11 15:31] LABS: Bedside Glucose 201 mg/dL (74-106)
[2024-04-11 15:45] LABS: Pathologist Review Reviewed
[2024-04-11 16:39] LABS: Bedside Glucose 167 mg/dL (74-106)
[2024-04-11] MEDS: Rivaroxaban 20 MG Tablet PO (17:07)
--- NOTE | 2024-04-11 17:50 | NURSING ---
report called to [facility] for transfer to room 119, transferred per wheelchair with belongings
[2024-04-11 21:21] LABS: Bedside Glucose 373 mg/dL (74-106)
[2024-04-11] MEDS: Mirtazapine 15 MG Tablet 7.5 MG PO (21:31)
[2024-04-11] MEDS: Insulin Glargine-YFGN 100 UNIT/ML Pen 25 UNIT SC (21:31)
[2024-04-11] MEDS: Insulin Lispro 100 UNIT/ML INSULN.PEN SC (21:32)
[2024-04-12] MEDS: Metoclopramide 10 MG Tablet PO ×4 (00:12→17:00)
[2024-04-12] MEDS: Vancomycin 125 MG/5 ML Susp PO.SYRINGE PO ×4 (00:13→17:00)
[2024-04-12] MEDS: KCL 20MEQ in D5.45NS 20 MEQ/1,000 ML IV.SOLN. 150 MEQ IV (04:04)
[2024-04-12 06:00] VITALS: BP 103/53; PULSE 90; RESP 16; TEMP 36.9; O2SAT 95; BMI 27.5
[2024-04-12 07:37] VITALS: O2SAT 99
[2024-04-12 07:42] LABS: Hematocrit 33.3 % (40-54); Hemoglobin 10.3 g/dL (13.0-16.5); Mean Corp Hgb Conc 30.9 g/dL (32-36); Mean Corpuscular Hgb 22.2 pg (27.0-32.0); Mean Corpuscular Volume 71.9 fL (80-94); Mean Platelet Vol. 9.2 fl (6.2-12.0); POSITIVE MORPHOLOGY YES; Platelet Count 237 K/mm3 (150-450); RBC Distribution Width CV 20.9 % (11.6-14.6); RBC Distribution Width SD 51.7 fl (35.1-43.9); Red Blood Count 4.63 M/mm3 (4.6-6.2); White Blood Count 6.1 K/mm3 (4.4-11.0)
[2024-04-12 08:07] LABS: Anion Gap 5 (5-15); BUN 10 mg/dL (7-18); BUN/Creat Ratio 9.8 RATIO (10-20); Calcium,Total 8.5 mg/dL (8.5-10.1); Chloride 104 mmol/L (98-107); Creatinine, Serum 1.02 mg/dL (0.70-1.30); EST Glomerular Filtration Rate 96 mL/min (>60); Est Glom Filt Rate - Afr Amer 116 mL/min (>60); Estimated Creatinine Clearance 127.29 ml/min; Glucose 271 mg/dL (74-106); Potassium 3.3 mmol/L (3.5-5.1); Sodium Level 137 mmol/L (136-145)
[2024-04-12] MEDS: Insulin Glargine-YFGN 100 UNIT/ML Pen 30 UNIT SC (08:22)
[2024-04-12] MEDS: Pantoprazole Sodium 40 MG Tablet PO (08:22)
[2024-04-12] MEDS: Insulin Lispro 100 UNIT/ML INSULN.PEN SC ×2 (08:23→16:48)
[2024-04-12] MEDS: Insulin Lispro 100 UNIT/ML INSULN.PEN 15 UNIT SC ×2 (08:24→16:48)
[2024-04-12 08:37] LABS: Scan Indicated on CBC? Y/N YES- FLAGS NOTED
[2024-04-12] MEDS: Potassium Chloride Oral Tablet 20 MEQ 40 MEQ PO (11:14)
[2024-04-12 11:22] VITALS: BP 123/87; PULSE 114; RESP 16; TEMP 36.4; O2SAT 98
[2024-04-12 11:41] LABS: Bedside Glucose 242 mg/dL (74-106)
--- NOTE | 2024-04-12 12:15 | DCINST_ITS ---
Discharge Instructions Diet Discharge Diet: 1999 Calorie Control Diet Activity Discharge Activity: No Restrictions Follow Up Care Test Results: Test results from this visit will be discussed in further detail at your follow- up appointment, if applicable. Discharge Plan Admission Admit Date/Time: 04/10/24 19:37 Primary Reason for Your Visit: DKA Attending Provider: Anurag Baxter Primary Care Provider: Mario Reyes Consulting Providers: Ashley Kapoor Discharge Orders/Prescriptions Prescriptions: New pantoprazole 40 mg Tablet,Delayed Release (Dr/Ec) 40 mg PO BID Qty: 0 0RF mirtazapine 15 mg Tablet 7.5 mg PO QHS Qty: 0 0RF Continued insulin lispro [Humalog KwikPen Insulin] 100 unit/mL insulin pen See Protocol subcut ACHS Protocol: 6. Sliding Scale Insulin Custom Condition: mg/dl range Dose/Route: Number of Units Condition: 150-199 Dose/Route: 2 Condition: 200-249 Dose/Route: 4 Condition: 250-299 Dose/Route: 6 Condition: 300-349 Dose/Route: 8 Condition: 350-399 Dose/Route: 10 Condition: 400-449 Dose/Route: 12 Condition: 450-499 Dose/Route: 14 Condition: 500> Instruction: CALL PCP Protocol Text: Custom Sliding Scale (DME) OneTouch Verio test strips Strip See Rx Instructions .ROUTE .MEDSUPPLY Rx Instructions: 4x/day (DME) pen needle, diabetic [BD Ultra-Fine [place]in Pen Needle] 32 gauge x 5/32 needle See Rx Instructions .ROUTE .MEDSUPPLY Rx Instructions: As directed (DME) FreeStyle Niru 14 Day Sensor Kit See Rx Instructions .ROUTE .MEDSUPPLY Rx Instructions: As directed potassium chloride 20 mEq tablet,ER particles/crystals 40 meq PO DAILY Xarelto 20 mg Tablet 20 mg PO DINNER Qty: 30 0RF metoclopramide HCl [Reglan] 10 mg tablet 10 mg PO Q6H 30 Days Qty: 120 0RF insulin lispro 100 unit/mL insulin pen 25 unit subcut TIDAC Rx Instructions: Hold if glucose less than 130 mg/dl insulin glargine [Lantus Solostar U-100 Insulin] 100 unit/mL (3 mL) insulin pen 35 unit SUBCUT BID Rx Instructions: Hold if glucose less than 130 mg/dl vancomycin 125 mg capsule 125 mg PO Q6H 3 Days Qty: 12 0RF Referrals / Follow Up: Mario Reyes MD [Primary Care Provider] - Disposition Disposition (needs filled in before D/C Order can be placed): Home, Self Care
--- NOTE | 2024-04-12 12:18 | DS.PCM_ITS ---
Providers Date of Admission: 04/10/24 Date of Discharge: 04/12/24 Primary Care Physician: Dr. Mario Reyes MD Consultations 04/10/24 20:56 Consult: Processing Analyst / Pulmonary Medicine Routine Consulting Provider: Pb Momin Reason for Consult: DKA EMERGENT Consult: No MD Notified: Yes Date Notified: 04/11/24 Time Notified: 06:30 Method of Notification: Text Reason For Visit: DKA Diagnosis Discharge Diagnosis (1) DKA (diabetic ketoacidoses): Status: Acute Code(s): E11.10 - Type 2 diabetes mellitus with ketoacidosis without coma (2) C. difficile enteritis: Status: Acute Code(s): A04.72 - Enterocolitis due to Clostridium difficile, not specified as recurrent (3) Nausea and vomiting: Status: Acute Code(s): R11.2 - Nausea with vomiting, unspecified (4) History of diabetes mellitus: Status: Acute Code(s): Z86.39 - Personal history of other endocrine, nutritional and metabolic disease Medications at Discharge Home Medications insulin lispro 100 unit/mL subcutaneous pen (Humalog KwikPen (U-100) Insulin) See Protocol subcut ACHS DIABETES 07/24/22 blood sugar diagnostic (OneTouch Verio test strips) 02/27/23 flash glucose sensor (FreeStyle Niru 14 Day Sensor kit) 02/27/23 pen needle, diabetic 32 gauge x 5/32 (BD Ultra-Fine Lorin Pen Needle) 02/27/23 potassium chloride 20 mEq tablet,extended release(part/cryst) 40 meq PO DAILY SUPPLEMENT 08/15/23 rivaroxaban 20 mg tablet (Xarelto) 20 mg PO DINNER BLOOD THINNER #30 tabs 09/17/23 metoclopramide HCl 10 mg tablet (Reglan) 10 mg PO Q6H GASTROPARESIS 30 days #120 tabs 09/20/23 insulin glargine 100 unit/mL (3 mL) subcutaneous pen (Lantus Solostar U-100 Insulin) 35 unit subcut BID DIABETES 10/05/23 insulin lispro 100 unit/mL subcutaneous pen 25 unit subcut TIDAC DIABETES 10/05/23 mirtazapine 15 mg tablet 7.5 mg (1/2 x 15 mg) PO QHS #0 tabs 04/12/24 pantoprazole 40 mg tablet,delayed release 40 mg PO BID #0 tabs 04/12/24 vancomycin 125 mg capsule 125 mg PO Q6H intestinal infection 3 days #12 caps 04/12/24 Hospital Course Operations None Procedures - (Chest x-ray) Summary of Care Provided Minutes Spent on Discharge: 35 Hospital Course: Patient is a 23-year-old male who presented to [facility] ED on 04/10/2024 with DKA. Short hospital course as noted below. Patient discharged home in stable condition on 04/12. 1. DKA, resolved; poorly controlled type 1 diabetes mellitus with history of recurrent admissions for DKA and medication nonadherence ? Suspected secondary to medication noncompliance at home. Home regimen of Lantus 35 units twice daily, lispro 25 units with meals plus sliding scale insulin as needed. Labs on admit consistent with DKA. Started on insulin drip on admission with orders per DKA protocol. Anion gap resolved on 04/11, transitioned off insulin drip before dinner on evening of 04/11. Blood sugar stable with no recurrence of DKA on 04/12, okay for discharge home on home insulin regimen. 2. Leukocytosis, resolved ? Most likely reactive in setting of DKA as noted above as well as somewhat elevated due to hemoconcentration. Resolved by 04/12. Unclear if patient completed treatment for C. difficile as noted below, restarted p.o. vancomycin and will be treated through 04/15. No need for other antibiotics. 3. RADHA, resolved ? Creatinine 1.98 on admit, baseline creatinine around 0.8-1.0. Presumed prerenal etiology due to fluid losses from DKA as noted above. Creatinine improved back to baseline by 04/12 with IV fluid resuscitation. 4. Severe chronic protein and calorie malnutrition ? Nutrition followed. Met criteria for malnutrition on admit as evidenced by poor p.o. intake for past several days and 3.6% weight loss from baseline in less than 1 week. Added Glucerna shakes with meals once restarted on diet after being transitioned off insulin drip. Recommended increased protein intake on discharge. 5. Recent history of C. difficile infection ? Diagnosed during previous hospitalization at the beginning of March. Completed 3 days of p.o. vancomycin while inpatient and was discharged home with plan to complete 10-day course on 03/22. Patient reports not taking all doses and did have some diarrhea on admission so p.o. vancomycin was restarted. Will complete another 3 days of p.o. vancomycin on discharge, stop date 04/15. Chronic medical conditions: ? Chronic iron deficiency anemia: Hemoglobin 11-12 on admit, baseline around 8- 9, was hemoconcentrated. Stable at baseline on discharge. Received IV iron infusions during last hospitalization, not on home p.o. iron supplementation. ? GERD, history of dysphagia secondary to severe erosive esophagitis with candidiasis: Stable. Continue home PPI twice daily. ? History of VTE: Continue home Xarelto. ? Anxiety/depression: Stable. Continue home mirtazapine. ? History of chronic pressure ulcers: Stable. No wound care needs at this time. ? Diabetic gastroparesis: Continue home Reglan. ? Lactose intolerance Total clinical time spent by myself addressing the patient's medical issues, reviewing all the data, and collaborating with patient's care team: 35 minutes. Physical Exam Const alert, oriented x3, no apparent distress and average body habitus Constitutional Narrative: Young male, mildly flat affect but otherwise sitting up comfortably bed, conversing normally and in no acute distress. General Appearance: cooperative and comfortable HEENT normocephalic, head/scalp atraumatic, hearing grossly normal bilaterally, nasal mucous membranes and turbinates normal and moist oral mucous membranes Eyes PERRL, EOMs intact bilaterally and conjunctivae normal Neck full ROM Chest inspection of chest normal Resp normal respiratory effort, normal air movement, no use of accessory muscles and clear to auscultation bilaterally Cardio regular rate, regular rhythm, no murmurs and peripheral pulses 2+ throughout GI normal to inspection, nondistended, normoactive bowel sounds, soft to palpation, non-tender and non-distended Back/Spine normal ROM Extremity normal to inspection, full ROM and no pedal edema Skin no rashes or lesions noted Neuro moves all extremities and no focal motor deficits Speech: speech normal Psych mental status grossly normal Medical Records Data Medical Nutrition Assessment Dietitian: Malnutrition Criteria Met Start: 04/11/24 10:18 Freq: Status: Active Protocol: Document 04/11/24 10:18 LOU (Rec: 04/11/24 10:18 LOU [id number]) Nutrition Malnutrition Evidence of Malnutrition Exists Yes Malnutrition (severe): Acute Illness/Injury Evidenced By Suboptimal Energy Intake ( Severe),Weight Loss (Severe) Clinical Problem Acute Disease or Injury Related Malnutrition Etiology related to DKA and issues w/ n /v/d Signs/Symptoms as evidenced by poor po intake x past several days and current NPO status and 3.6% wt loss in < 1 wk Status Active Problem Recommendation Dietitian Recommendations/Changes As medically able, rec ZACH to CHO Controlled - lactose intolerant As medically able, rec 4 oz glucerna shake tid w/ medpass for increased nutrition if consumed Will attempt diet education at time of follow up if pt agreeable. Weight / BMI Weight Weight: 94.6 kg Body Mass Index (BMI) 27.5 ABG / Lab / Microbiology Data 04/12/24 07:10 04/12/24 07:10 Laboratory: Laboratory Results - last 24 hr 04/11/24 04:15: Diff Path Review Reviewed 04/11/24 11:05: POC Glucose 219 H 04/11/24 12:16: POC Glucose 224 H 04/11/24 13:05: POC Glucose 220 H 04/11/24 14:00: Sodium 142, Potassium 3.3 L, Chloride 106, Carbon Dioxide 30.0, Anion Gap 6, BUN 20 H, Creatinine 1.19, Estim Creat Clear Calc 109.11, Est GFR (MDRD) Af Amer 97, Est GFR (MDRD) Non-Af 80, BUN/Creatinine Ratio 16.8, Glucose 215 H, Calcium 8.7 04/11/24 14:01: POC Glucose 209 H 04/11/24 15:05: POC Glucose 201 H 04/11/24 16:20: POC Glucose 167 H 04/11/24 20:46: POC Glucose 373 H 04/12/24 07:10: WBC 6.1, RBC 4.63, Hgb 10.3 L, Hct 33.3 L, MCV 71.9 L, MCH 22.2 L, MCHC 30.9 L, RDW Std Deviation 51.7 H, RDW Coeff of Rabia 20.9 H, Plt Count 237, MPV 9.2, Sodium 137, Potassium 3.3 L, Chloride 104, Carbon Dioxide 28.0, Anion Gap 5, BUN 10, Creatinine 1.02, Estim Creat Clear Calc 127.29, Est GFR (MDRD) Af Amer 116, Est GFR (MDRD) Non-Af 96, BUN/Creatinine Ratio 9.8 L, G lucose 271 H, Calcium 8.5 04/12/24 08:23: POC Glucose 242 H Microbiology: Microbiology 04/12/24 00:30 Stool Enteric Bacteriology - Final D/C Instructions Discharge Diet: 2000 Calorie Control Diet Meaningful Use Info Meaningful Use Meaningful Use Diagnoses (Choose all that apply): None applicable Ischemic Stroke Statin Dosing Therapy Reference: STATIN DOSE THERAPY REFERENCE: * Patients > 75 years receive moderate or high dose statin therapy. * Patients 75 years or YOUNGER should receive HIGH intensity statin dose unless contraindicated. You will be required to document reason for non-treatment if statin daily dose does not meet guidelines. HIGH DOSE STATIN THERAPY DAILY Atorvastatin > than or = to 40 mg Rosuvastatin > than or = to 20 mg Amlodipine + Atorvastatin > than or = to 2.5/40 mg Ezetimibe + Simvastatin 10/80 mg Simvastatin 80mg Discharge Plan Admission Admit Date/Time: 04/10/24 19:37 Primary Reason for Your Visit: DKA Attending Provider: Anurag Baxter Primary Care Provider: Mario Reyes Consulting Providers: Ashley Kapoor Discharge Orders/Prescriptions Prescriptions: New pantoprazole 40 mg Tablet,Delayed Release (Dr/Ec) 40 mg PO BID Qty: 0 0RF mirtazapine 15 mg Tablet 7.5 mg PO QHS Qty: 0 0RF Continued insulin lispro [Humalog KwikPen Insulin] 100 unit/mL insulin pen See Protocol subcut [facility] Protocol: 6. Sliding Scale Insulin Custom Condition: mg/dl range Dose/Route: Number of Units Condition: 150-199 Dose/Route: 2 Condition: 200-249 Dose/Route: 4 Condition: 250-299 Dose/Route: 6 Condition: 300-349 Dose/Route: 8 Condition: 350-399 Dose/Route: 10 Condition: 400-449 Dose/Route: 12 Condition: 450-499 Dose/Route: 14 Condition: 500> Instruction: CALL PCP Protocol Text: Custom Sliding Scale (DME) OneTouch Verio test strips Strip See Rx Instructions .ROUTE .MEDSUPPLY Rx Instructions: 4x/day (DME) pen needle, diabetic [BD Ultra-Fine Lorin Pen Needle] 32 gauge x 5/32 needle See Rx Instructions .ROUTE .MEDSUPPLY Rx Instructions: As directed (DME) FreeStyle Niru 14 Day Sensor Kit See Rx Instructions .ROUTE .MEDSUPPLY Rx Instructions: As directed potassium chloride 20 mEq tablet,ER particles/crystals 40 meq PO DAILY Xarelto 20 mg Tablet 20 mg PO DINNER Qty: 30 0RF metoclopramide HCl [Reglan] 10 mg tablet 10 mg PO Q6H 30 Days Qty: 120 0RF insulin lispro 100 unit/mL insulin pen 25 unit subcut TIDAC Rx Instructions: Hold if glucose less than 130 mg/dl insulin glargine [Lantus Solostar U-100 Insulin] 100 unit/mL (3 mL) insulin pen 35 unit SUBCUT BID Rx Instructions: Hold if glucose less than 130 mg/dl vancomycin 125 mg capsule 125 mg PO Q6H 3 Days Qty: 12 0RF Referrals / Follow Up: Mario Reyes MD [Primary Care Provider] - Disposition Disposition (needs filled in before D/C Order can be placed): Home, Self Care Charges/Coding Visit Charges Inpatient E&M: 76695 Disch Hosp >30min
[2024-04-12] MEDS: Rivaroxaban 20 MG Tablet PO (16:46)
[2024-04-12 16:57] VITALS: BP 123/85; PULSE 101; RESP 16; TEMP 36.8; O2SAT 100
[2024-04-12 16:57] LABS: Bedside Glucose 101 mg/dL (74-106)
[2024-04-12 17:56] LABS: Bedside Glucose 170 mg/dL (74-106)
== END 2024-04-12 20:40 | disposition home or self-care (01) | DRG 420 ==
LOC: ED 19:48 → ICU 19:59 → PCU 04-11 17:56
PROVIDERS: Admitting Provider Family Medicine; Emergency Provider Emergency Medicine; PCP Internal Medicine; Referring Provider Family Medicine; Visit Provider Hospitalist
DX: E10.10 Type 1 diabetes mellitus with ketoacidosis without coma (principal); E43 Unspecified severe protein-calorie malnutrition; A04.72 Enterocolitis due to Clostridium difficile, not specified as recurrent; N17.9 Acute kidney failure, unspecified; Z79.4 Long term (current) use of insulin; D50.9 Iron deficiency anemia, unspecified; F32.A Depression, unspecified; J45.909 Unspecified asthma, uncomplicated; E73.9 Lactose intolerance, unspecified; K21.9 Gastro-esophageal reflux disease without esophagitis; F41.9 Anxiety disorder, unspecified; Z79.01 Long term (current) use of anticoagulants; Z86.718 Personal history of other venous thrombosis and embolism; Z86.711 Personal history of pulmonary embolism; Z68.25 Body mass index [BMI] 25.0-25.9, adult
CPT/HCPCS: 36415; 71045; 80048; 80053; 81001; 82009; 82803; 82947; 82962; 83036; 83690; 83735; 84100; 84145; 85025; 85027; 87506; 93005; 97802; 99285; J7030; A4216; J0612; J2405

== ENCOUNTER 2024-07-08 17:17 | Inpatient (IN) | payer MEDICAID, SELFPAY ==
[2024-07-08] VITALS (12 sets, daily range): BP systolic 77–104; BP diastolic 53–79; PULSE 107–114; RESP 16–32; TEMP 36.1–36.6; O2SAT 98–100; BMI 24.5; BMI 23.6
--- NOTE | 2024-07-08 17:48 | EKG12_ITS ---
Test Reason : DKA Blood Pressure : / mmHG Vent. Rate : 114 BPM Atrial Rate : 114 BPM P-R Int : 144 ms QRS Dur : 104 ms QT Int : 356 ms P-R-T Axes : 066 071 057 degrees QTc Int : 490 ms Sinus tachycardia with Fusion complexes Otherwise normal ECG Baseline artifact Confirmed by Mauri Almanzar ([id number]), sports editor AYESHA VALLE ([id number]) on 07/09/2024 10:07:22 AM Referred By: Confirmed By:Mauri Almanzar
[2024-07-08] MEDS: 0.9% Normal Saline (1000mL) 1,000 ML 999 ML IV ×2 (18:00→20:52)
--- NOTE | 2024-07-08 18:00 | RAD_ITS ---
STUDY: X-RAY CHEST REASON FOR EXAM: Male, 23 years old. dka TECHNIQUE: Single frontal view of the chest. COMPARISON: April 10, 2024 FINDINGS: The lungs are clear and expanded. There is no demonstrated pleural abnormality. Normal size heart. Normal mediastinum and rudi. Normal visualized pulmonary arteries. Normal visualized aortic arch and descending thoracic aorta. Normal visualized thoracic spine. Normal visualized ribs, clavicles, and shoulders. There is no demonstrated abnormality of the visualized soft tissue structures of the upper abdomen. RAD/Chest 1 View (Portable) IMPRESSION: Normal x-ray examination of the chest. Electronically Signed: Mihir Jean Baptiste MD at 18:22 EDT ,
--- NOTE | 2024-07-08 18:02 | EX.ED.DYSGE1 ---
HPI History of Present Illness Chief Complaint: Hyperglycemia Narrative Narrative: Patient is a 23-year-old male with a past medical history of type 1 diabetes, GERD, depression, anxiety, DVT on Xarelto, gastroparesis who presented to the emergency department chief complaint of elevated blood glucose. Patient states that the for the past few days he has not been feeling well and states that he does not know where his insulin pump is. Patient states that he has not been around anybody sick recently he states that he has had nausea vomiting and unable to keep anything down prompting him to come here for further evaluation management. [facility] Medical History History of diabetes mellitus Anticoagulant long-term use Anemia due to chronic illness [place] grade D esophagitis [place] esophagitis Gastroparesis Recurrent pulmonary embolism AP window (aortopulmonary window) Anxiety Depression DVT (deep venous thrombosis) Hypokalemia Noncompliance with diabetes treatment History of medication noncompliance Severe protein-calorie malnutrition Kidney disease Hypokalemia Non-smoker Asthma Psychosocial problem femur surgery Diabetes mellitus type 1 GERD (gastroesophageal reflux disease) Home Medications ?Medication ?Instructions ?Recorded ?Last Taken ?Type insulin lispro 100 unit/mL See Protocol subcut ACHS DIABETES 07/24/22 10/05/23 History subcutaneous pen (Humalog KwikPen (U-100) Insulin) blood sugar diagnostic (OneTouch 02/27/23 Unknown History Verio test strips) flash glucose sensor (FreeStyle 02/27/23 Unknown History Niru 14 Day Sensor kit) pen needle, diabetic 32 gauge x 02/27/23 Unknown History (BD Ultra-Fine Lorin Pen Needle) potassium chloride 20 mEq 40 meq PO DAILY SUPPLEMENT 08/15/23 10/05/23 History tablet,extended release(part/cryst) rivaroxaban 20 mg tablet (Xarelto) 20 mg PO DINNER BLOOD THINNER #30 09/17/23 10/05/23 Rx tabs metoclopramide HCl 10 mg tablet 10 mg PO Q6H GASTROPARESIS 30 09/20/23 10/05/23 Rx (Reglan) days #120 tabs insulin glargine 100 unit/mL (3 35 unit subcut BID DIABETES 10/05/23 10/05/23 History mL) subcutaneous pen (Lantus Solostar U-100 Insulin) insulin lispro 100 unit/mL 25 unit subcut TIDAC DIABETES 10/05/23 10/05/23 History subcutaneous pen mirtazapine 15 mg tablet 7.5 mg (1/2 x 15 mg) PO QHS #0 tabs 04/12/24 Unknown Rx pantoprazole 40 mg tablet,delayed 40 mg PO BID #0 tabs 04/12/24 Unknown Rx release vancomycin 125 mg capsule 125 mg PO Q6H intestinal infection 04/12/24 Unknown Rx 3 days #12 caps Allergy/AdvReac Type Severity Reaction Status Date / Time vancomycin Allergy local Verified 07/08/24 17:22 rash/hives to IV site Family History Father Polysubstance overdose Patient father young secondary to OD. Mother Iron deficiency anemia Other Asthma CVA (cerebral vascular accident) Diabetes Hypertension Thyroid disorder Surgical History H/O right knee surgery History of surgery on extremity Hx of knee surgery Social History housing: other details: Lives with his grandmother, aunt and mother. Smoking Status: Never smoker alcohol intake: current alcohol intake frequency: a few times a month substance use type: does not use ROS ROS ED ROS Narrative Constitutional: Denies any fevers, chills, headaches, Eyes: Denies change in vision double vision blurry vision Cardiovascular: Denies chest pain or palpitations Respiratory: Denies coughing wheezing shortness of breath Abdomen: Admits to nausea vomiting denies abdominal pain : Denies any urinary symptoms Neurological: Denies numbness, weakness, tingling Musculoskeletal: Denies back pain Skin: Denies rashes or lesions EXAM Physical Exam Narrative Exam Narrative: General: Patient was lying in bed did appear to be uncomfortable and not feeling well Head: Atraumatic, normocephalic Eyes, nose, throat: PERRL bilateral, EOMI bilateral, no conjunctival injection noted. Mucous membranes dry Neck: Soft and supple, trach midline Cardiovascular: Patient tachycardic with a regular rhythm no murmurs gallops rubs noted Respiratory: Patient kussmaul breathing on exam, clear to auscultation bilaterally Abdomen: Soft, nondistended, no tenderness palpation Extremities: Patient moving all extremities on exam, no pedal edema neuroexam Neurological: Patient is following commands, knew that he was at the hospital did not know what hospital Skin: Warm, dry, intact Const Vital Signs: 07/08/24 17:18 07/08/24 17:23 07/08/24 18:17 Temperature 97.8 F Temperature Source Temporal Pulse Rate 112 H 113 H Respiratory Rate 25 H 32 H Respiratory Effort Normal Non-Labored Respiratory Pattern Normal Blood Pressure 101/57 L 95/54 L Blood Pressure Mean 71 67 Pulse Ox 98 99 Oxygen Delivery Method Room Air Room Air 07/08/24 18:45 07/08/24 19:00 07/08/24 19:45 Temperature Temperature Source Pulse Rate 111 H 108 H 107 H Respiratory Rate 27 H 26 H 23 H Respiratory Effort Respiratory Pattern Blood Pressure 102/75 104/59 L Blood Pressure Mean 82 70 Pulse Ox Oxygen Delivery Method 07/08/24 20:00 07/08/24 20:06 Temperature 98 F Temperature Source Pulse Rate 109 H 112 H Respiratory Rate 24 H 26 H Respiratory Effort Respiratory Pattern Blood Pressure 91/79 91/79 Blood Pressure Mean 85 83 Pulse Ox 99 Oxygen Delivery Method MDM MDM MDM Narrative Medical decision making narrative: Patient is a 23-year-old male who presented to the emergency department with a chief complaint of DKA. Patient will have a workup performed here on the differential diagnose includes but not limited to viral gastroenteritis, COVID, medication noncompliance, pneumonia, UTI. Once workup is obtained and reviewed he will be reevaluated. Patient be given IV fluids for hydration. Patient's CBC was significant leukocytosis 26,000, hemoglobin stable 13.5, plate count was 473. Patient's venous blood gas showed a pH of 6.92, patient was noted to have a lactic acidosis of 4.2, magnesium was 2.9. Patient's hyperkalemic on his chemistry at 6.7. Patient's anion gap was noted to be 41, glucose was noted to be 1033, AST and ALT were 14 and 32 respectively. Patient's urinalysis showed 150 ketones no evidence of infection drug screen was negative and had a large amount of acetone noted. Patient's chest x-ray was reviewed and showed normal chest x-ray no acute cardiopulmonary processes. Patient was placed on insulin infusion as well as given 30 cc of IV fluid followed by lactated Ringer's at 100 cc an hour. Patient was given 3 A of sodium bicarbonate per hospitalist request. At this point time do believe the patient warrants admission for diabetic ketoacidosis. Did discuss case with hospitalist Dr. Monterroso who accept patient to the intensive care unit for admission. Patient notified with all question concerns answered bedside. At this point time do not believe antibiotics are indicated as there is no source of infection and this is likely secondary to the patient being noncompliant with his insulin. We will continue IV fluids and insulin infusion with repeat blood work. Critical care time 46 minutes Lab Data Labs: Laboratory Results - last 24 hr 07/08/24 07/08/24 07/08/24 17:50 18:00 19:58 WBC 26.4 H RBC 5.19 Hgb 13.5 Hct 43.6 MCV 84.0 MCH 26.0 L MCHC 31.0 L RDW Std Deviation 42.8 RDW Coeff of Rabia 14.3 Plt Count 473 H MPV 10.4 Immature Gran % (Auto) 1.100 H Neut % (Auto) 77.1 H Lymph % (Auto) 13.[address] [place] % (Auto) 7.7 Eos % (Auto) 0.1 Baso % (Auto) 0.5 Absolute Neuts (auto) 20.3 H Absolute Lymphs (auto) 3.57 Nucleated RBC % 0 Differential Comment SCANNED Diff Path Review May foll Sodium 125 L Potassium 6.7 H* Chloride 80 L Carbon Dioxide 4.0 L* Anion Gap 41 H BUN 27 H Creatinine 2.51 H Estim Creat Clear Calc 51.73 Est GFR (MDRD) Af Amer 41 L Est GFR (MDRD) Non-Af 34 L BUN/Creatinine Ratio 10.8 Glucose 1103 H* Calcium 9.8 Phosphorus Magnesium 2.9 H Total Bilirubin 1.30 H Direct Bilirubin 0.22 AST 14 L ALT 32 Alkaline Phosphatase 197 H Total Protein 8.2 Albumin 4.4 Globulin 3.8 Urine Color Yellow Urine Clarity Clear Urine pH 5.0 Ur Specific [place] 1.010 Urine Protein 15 H Urine Glucose (UA) 1000 H Urine Ketones 150 A* Urine Occult Blood Negative Urine Nitrite Negative Urine Bilirubin Negative Urine Urobilinogen Normal Ur Leukocyte Esterase Negative Urine RBC 0 SEEN Urine WBC 0 SEEN Ur Squamous Epith Cells 0 SEEN Urine Bacteria 0 SEEN Urine Mucus 0 SEEN Urine Opiates Screen NEGATIVE Urine Methadone Screen NEGATIVE Ur Barbiturates Screen NEGATIVE Ur Phencyclidine Scrn NEGATIVE Ur Amphetamines Screen NEGATIVE MDMA (Ecstasy) Screen NEGATIVE U Benzodiazepines Scrn NEGATIVE Urine Cocaine Screen NEGATIVE U Cannabinoids Screen NEGATIVE Ur Drug Screen Comment Acetone Level LARGE H POC Glucose > 500 H* 07/08/24 20:02 WBC RBC Hgb Hct MCV MCH MCHC RDW Std Deviation RDW Coeff of Rabia Plt Count MPV Immature Gran % (Auto) Neut % (Auto) Lymph % (Auto) [place] % (Auto) Eos % (Auto) Baso % (Auto) Absolute Neuts (auto) Absolute Lymphs (auto) Nucleated RBC % Differential Comment Diff Path Review Sodium Potassium Chloride Carbon Dioxide Anion Gap BUN Creatinine Estim Creat Clear Calc Est GFR (MDRD) Af Amer Est GFR (MDRD) Non-Af BUN/Creatinine Ratio Glucose 1033 H* Calcium Phosphorus 9.2 H* Magnesium Total Bilirubin Direct Bilirubin AST ALT Alkaline Phosphatase Total Protein Albumin Globulin Urine Color Urine Clarity Urine pH Ur Specific [place] Urine Protein Urine Glucose (UA) Urine Ketones Urine Occult Blood Urine Nitrite Urine Bilirubin Urine Urobilinogen Ur Leukocyte Esterase Urine RBC Urine WBC Ur Squamous Epith Cells Urine Bacteria Urine Mucus Urine Opiates Screen Urine Methadone Screen Ur Barbiturates Screen Ur Phencyclidine Scrn Ur Amphetamines Screen MDMA (Ecstasy) Screen U Benzodiazepines Scrn Urine Cocaine Screen U Cannabinoids Screen Ur Drug Screen Comment Acetone Level POC Glucose ABG Data ABG results: ABG 07/08/24 18:16 Specimen Type MARILYNN Sample Site Not entered VBG pH 6.92 L* VBG pO2 51 H VBG Total CO2 < 5 L VBG O2 Sat (Calc) 62 VBG Base Excess -29 L POC Mix VBG pCO2 Pt Tmp 15.5 L* O2 Delivery Device Room Air Crit Call To/Read Back Yes Blood Gas Notified Whom dr hughes Blood Gas Notified Time 18:19:01 Radiography Diagnostic Testing: Clinical Impression(s) from Imaging Studies Chest X-Ray 07/08/24 18:00 IMPRESSION: Normal x-ray examination of the chest. Electronically Signed: Mihir Jean Baptiste MD at 18:22 EDT Reading Location ID and State: [facility] / [place] Tel , Service support , Discharge Plan Dx/Rx/DC Orders Clinical Impression: Diabetic ketoacidosis Disposition Disposition: Acute Care Hospital [facility] Discharge Date/Time: 07/08/24 21:03
[2024-07-08 18:09] LABS: Bacteria 0 SEEN /hpf (None Seen); Mucous, Urine 0 SEEN /hpf (<or=2+); Red Blood Cells-Urine 0 SEEN /hpf (0-5); Squamous Epithelial Cells - UA 0 SEEN /hpf (0-5); White Blood Cells 0 SEEN /hpf (0-5)
[2024-07-08 18:12] LABS: Absolute Lymphocyte Count 3.57 X10^3/uL (0.83-4.51); Absolute Neutrophil Count 20.3 X10^3/uL (2.0-7.7); Basophil# 0.14 X10^3/uL; Basophil% 0.5 % (0-1); Eosinophil# 0.03 X10^3/uL; Eosinophils% 0.1 % (0-5); Hematocrit 43.6 % (40-54); Hemoglobin 13.5 g/dL (13.0-16.5); Lymphocyte # 3.57 X10^3/ul (0.83-4.51); Lymphocyte % 13.5 % (19-41); Mean Platelet Vol. 10.4 fl (6.2-12.0); Monocyte# 2.02 X10^3/uL; Monocyte% 7.7 % (0-10); NRBC Flagged by Analyzer 0 % (0-5); Neutrophil # 20.33 X10^3/uL (2.7-7.7); Neutrophil % 77.1 % (47-70); POSITIVE DIFFERENTIAL YES; Platelet Count 473 K/mm3 (150-450); RBC Distribution Width CV 14.3 % (11.6-14.6); RBC Distribution Width SD 42.8 fl (35.1-43.9); Red Blood Count 5.19 M/mm3 (4.6-6.2); White Blood Count 26.4 K/mm3 (4.4-11.0)
[2024-07-08 18:22] LABS: Differential Indicated SCAN CRITERIA MET
[2024-07-08 18:22] LABS: Blood Gas Specimen Type VEN; O2 Delivery Device Room Air; SITE Not entered; VBG BASE EXCESS -29 mmol/L (-1.0-3.5); VBG PO2 51 mmHg (25-40); VBG SO2 62 % (50-70); VBG TCO2 < 5 mmol/L (23-33); VBG pCO2 15.5 mmHg (41-51); VBG pH 6.92 (7.32-7.42)
[2024-07-08 18:25] LABS: Color, Urine Yellow (Yellow); Glucose, Dipstick 1000 mg/dl (Normal); Leukocyte Esterase-Dipstick Negative /ul (Negative); Nitrite-Dipstick Negative (Negative); Occult Blood-Urine Negative /ul (Negative); Protein-Dipstick 15 mg/dl (Negative); Urine Bilirubin Dipstick Negative (Negative); Urine Clarity Clear (Clear); Urine Urobilinogen Normal (Normal)
[2024-07-08 18:27] LABS: Ketone-Dipstick 150 mg/dl (Negative)
[2024-07-08 18:39] LABS: AST(SGOT) 14 U/L (15-37); Alanine Aminotransfer ALT/SGPT 32 U/L (16-61); Albumin, Serum 4.4 g/dL (3.2-5.0); Alkaline Phosphatase 197 U/L (45-117); Bilirubin, Direct 0.22 mg/dL (0.00-0.30); Globulin 3.8 g/dL (2.2-4.2); Protein, Total 8.2 g/dL (6.4-8.2)
[2024-07-08 18:44] LABS: Anion Gap 41 (5-15); BUN 27 mg/dL (7-18); BUN/Creat Ratio 10.8 RATIO (10-20); Calcium,Total 9.8 mg/dL (8.5-10.1); Chloride 80 mmol/L (98-107); Creatinine, Serum 2.51 mg/dL (0.70-1.30); EST Glomerular Filtration Rate 34 mL/min (>60); Est Glom Filt Rate - Afr Amer 41 mL/min (>60); Estimated Creatinine Clearance 51.73 ml/min; Glucose 1103 mg/dL (74-106); Magnesium 2.9 mg/dL (1.6-2.6); Potassium 6.7 mmol/L (3.5-5.1); Sodium Level 125 mmol/L (136-145)
[2024-07-08 18:44] LABS: Amphetamine Urine VISTA NEGATIVE (<1000 ng/mL); Barbiturate Urine VISTA NEGATIVE (< 200 ng/mL); Benzodiazepine Urine VISTA NEGATIVE (< 200 ng/mL); Cocaine Urine VISTA NEGATIVE (< 300 ng/mL); Ecstacy Urine VISTA NEGATIVE (< 500 ng/mL); Methadone Urine VISTA NEGATIVE (< 300 ng/mL); PCP Urine VISTA NEGATIVE (< 25 ng/mL); THC Urine VISTA NEGATIVE (< 50 ng/mL); Vista UDS pH Range 5
[2024-07-08 18:56] LABS: Differential Comment SCANNED
[2024-07-08] MEDS: Lactated Ringers 1,000 ML 999 ML IV (19:00)
[2024-07-08] MEDS: Insulin Lispro 100 UNIT in 0.9% Normal Saline (100mL Bag) 99 ML 8.5 UNIT CONT INF (19:11)
--- NOTE | 2024-07-08 19:38 | ED.RN ---
Patients creatinine is 2.[address] Hughes we are holding CT for now.
--- NOTE | 2024-07-08 19:57 | PCM.HP.STD ---
[facility] - General General Date of Admission: 07/08/24 Date of Service: 07/08/24 Chief Complaint: Severe Hyperglycemia with Nausea and Vomiting. [facility] Narrative SHIRA CARLTON, is a 23 M with a past medical history of DM-1; uncontrolled with hyperglycemia due to medical noncompliance, diabetic gastroparesis, history of DFU's, history of chronic severe protein-calorie malnutrition, GERD, history of dysphagia; with grade-D erosive esophagitis, history of DVT and recurrent PE; on Xarelto, anemia of chronic disease, history of pericarditis attributed to MSSA treated at [facility] with ATB's (2021), history of stage II Left buttock ulcer, history of asthma, depression with anxiety and 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 Mr. Carlton reports his symptoms began approximately 2-3 days prior to admission with the gradual-onset of progressively worsening malaise followed by intractable nausea and vomiting. He states he does not know where his insulin pump is and he suspects this may be related to his acute decline that is similar to his numerous previous bouts of DKA. Since he is not a fully reliable historian at this time information was gathered from chart, medical staff and computer. [facility] Medical History History of diabetes mellitus Anticoagulant long-term use Anemia due to chronic illness [place] grade D esophagitis [place] esophagitis Gastroparesis Recurrent pulmonary embolism AP window (aortopulmonary window) Anxiety Depression DVT (deep venous thrombosis) Hypokalemia Noncompliance with diabetes treatment History of medication noncompliance Severe protein-calorie malnutrition Kidney disease Hypokalemia Non-smoker Asthma Psychosocial problem femur surgery Diabetes mellitus type 1 GERD (gastroesophageal reflux disease) Home Medications ?Medication ?Instructions ?Recorded ?Last Taken ?Type insulin lispro 100 unit/mL See Protocol subcut ACHS DIABETES 07/24/22 10/05/23 History subcutaneous pen (Humalog KwikPen (U-100) Insulin) blood sugar diagnostic (OneTouch 02/27/23 Unknown History Verio test strips) flash glucose sensor (FreeStyle 02/27/23 Unknown History Niru 14 Day Sensor kit) pen needle, diabetic 32 gauge x 02/27/23 Unknown History (BD Ultra-Fine Lorin Pen Needle) potassium chloride 20 mEq 40 meq PO DAILY SUPPLEMENT 08/15/23 10/05/23 History tablet,extended release(part/cryst) rivaroxaban 20 mg tablet (Xarelto) 20 mg PO DINNER BLOOD THINNER #30 09/17/23 10/05/23 Rx tabs metoclopramide HCl 10 mg tablet 10 mg PO Q6H GASTROPARESIS 30 09/20/23 10/05/23 Rx (Reglan) days #120 tabs insulin glargine 100 unit/mL (3 35 unit subcut BID DIABETES 10/05/23 10/05/23 History mL) subcutaneous pen (Lantus Solostar U-100 Insulin) insulin lispro 100 unit/mL 25 unit subcut TIDAC DIABETES 10/05/23 10/05/23 History subcutaneous pen mirtazapine 15 mg tablet 7.5 mg (1/2 x 15 mg) PO QHS #0 tabs 04/12/24 Unknown Rx pantoprazole 40 mg tablet,delayed 40 mg PO BID #0 tabs 04/12/24 Unknown Rx release vancomycin 125 mg capsule 125 mg PO Q6H intestinal infection 04/12/24 Unknown Rx 3 days #12 caps Allergy/AdvReac Type Severity Reaction Status Date / Time vancomycin Allergy local Verified 07/08/24 17:22 rash/hives to IV site Family History Father Polysubstance overdose Patient father young secondary to OD. Mother Iron deficiency anemia Other Asthma CVA (cerebral vascular accident) Diabetes Hypertension Thyroid disorder Surgical History H/O right knee surgery History of surgery on extremity Hx of knee surgery Social History housing: other details: Lives with his grandmother, aunt and mother. Smoking Status: Never smoker alcohol intake: current alcohol intake frequency: a few times a month substance use type: does not use Vital Signs Vital Signs Vital Signs: 07/08/24 17:18 07/08/24 17:23 07/08/24 18:17 Temperature 97.8 F Temperature Source Temporal Pulse Rate 112 H 113 H Respiratory Rate 25 H 32 H Respiratory Effort Normal Non-Labored Respiratory Pattern Normal Blood Pressure 101/57 L 95/54 L Blood Pressure Mean 71 67 Pulse Ox 98 99 Oxygen Delivery Method Room Air Room Air 07/08/24 18:45 07/08/24 19:00 Temperature Temperature Source Pulse Rate 111 H 108 H Respiratory Rate 27 H 26 H Respiratory Effort Respiratory Pattern Blood Pressure 102/75 Blood Pressure Mean 82 Pulse Ox Oxygen Delivery Method Weight Weight: 186 lb 8.177 oz Body Mass Index (BMI) 24.5 Physical Exam Const alert, no apparent distress and average body habitus Constitutional Narrative: Patient appears chronically ill and confused. General Appearance: cooperative HEENT normocephalic, head/scalp atraumatic and hearing grossly normal bilaterally HEENT Narrative: Mucous membranes dry. Eyes PERRL and EOMs intact bilaterally Neck no lymphadenopathy and supple Resp normal respiratory effort, no retractions, no use of accessory muscles and clear to auscultation bilaterally Cardio regular rate and regular rhythm Cardio Narrative: Tachycardia noted at 114 bpm. GI normal to inspection, nondistended, normoactive bowel sounds, soft to palpation and non-distended GI Narrative: Mild generalized TTP. Extremity normal to inspection and full ROM Skin Skin Narrative: Patient has no evidence of rash or abscess. Neuro CN's II-XII intact bilaterally, moves all extremities and no focal motor deficits Sensorium / Orientation: awake, alert, oriented to person and oriented to place Speech: speech normal Psych Psych Narrative: Patient has depressed and lethargic affect. Mood & Affect: depressed Results Medical Records Data Attestation: I reviewed the patient's medical records Lab / Micro Data Attestation: I reviewed the patient's lab results. 07/08/24 18:00 07/09/24 00:58 Labs: Laboratory Results - last 24 hr 07/08/24 17:50: Urine Color Yellow, Urine Clarity Clear, Urine pH 5.0, Ur Specific [place] 1.010, Urine Protein 15 H, Urine Glucose (UA) 1000 H, Urine Ketones 150 A*, Urine Occult Blood Negative, Urine Nitrite Negative, Urine Bilirubin Negative, Urine Urobilinogen Normal, Ur Leukocyte Esterase Negative, Urine RBC 0 SEEN, Urine WBC 0 SEEN, Ur Squamous Epith Cells 0 SEEN, Urine Bacteria 0 SEEN, Urine Mucus 0 SEEN, Urine Opiates Screen NEGATIVE, Urine Methadone Screen NEGATIVE, Ur Barbiturates Screen NEGATIVE, Ur Phencyclidine Scrn NEGATIVE, Ur Amphetamines Screen NEGATIVE, MDMA (Ecstasy) Screen NEGATIVE, U Benzodiazepines Scrn NEGATIVE, Urine Cocaine Screen NEGATIVE, U Cannabinoids Screen NEGATIVE, Ur Drug Screen Comment 07/08/24 18:00: WBC 26.4 H, RBC 5.19, Hgb 13.5, Hct 43.6, MCV 84.0, MCH 26.0 L, MCHC 31.0 L, RDW Std Deviation 42.8, RDW Coeff of Rabia 14.3, Plt Count 473 H, MPV 10.4, Immature Gran % (Auto) 1.100 H, Neut % (Auto) 77.1 H, Lymph % (Auto) 13.5 L, Brown % (Auto) 7.7, Eos % (Auto) 0.1, Baso % (Auto) 0.5, Absolute Neuts (auto) 20.3 H, Absolute Lymphs (auto) 3.57, Nucleated RBC % 0, Differential Comment SCANNED, Diff Path Review March, Sodium 125 L, Potassium 6.7 H*, Chloride 80 L, Carbon Dioxide 4.0 L*, Anion Gap 41 H, BUN 27 H, Creatinine 2.51 H, Estim Creat Clear Calc 51.73, Est GFR (MDRD) Af Amer 41 L, Est GFR (MDRD) Non-Af 34 L, BUN/Creatinine Ratio 10.8, Glucose 1103 H*, Calcium 9.8, Magnesium 2.9 H, Total Bilirubin 1.30 H, Direct Bilirubin 0.22, AST 14 L, ALT 32, Alkaline Phosphatase 197 H, Total Protein 8.2, Albumin 4.4, Globulin 3.8, Acetone Level LARGE H Micro: Microbiology 07/08/24 18:15 Mucosa - Nose SARS-CoV-2, Influenza & RSV (PCR) - Final ABG Data ABG results: ABG 07/08/24 18:16 Specimen Type MARILYNN Sample Site Not entered VBG pH 6.92 L* VBG pO2 51 H VBG Total CO2 < 5 L VBG O2 Sat (Calc) 62 VBG Base Excess -29 L POC Mix VBG pCO2 Pt Tmp 15.5 L* O2 Delivery Device Room Air Crit Call To/Read Back Yes Blood Gas Notified Whom dr ness Blood Gas Notified Time 18:19:01 Interpretation: RUN DATE: 07/09/24 [facility], DEPARTMENT OF LABORATORIES PAGE 1 RUN TIME: 354 Specimen Inquiry [id number], [place], [address] PATIENT: SHIRA CARLTON LOC: ICU U #: [id number] : 2000 AGE/SX: 23/M FACILITY: [facility] ROOM: [place] [id number] RE07/08/[address]: Adore Tavera STATUS:ADM IN ED: 1 DIS: ~ SPEC #: [id number] HONG: 07/08/24 STATUS: COMP REQ #: [id number] RECD: 07/08/[address]: Dr. Will Yung, DO ENTERED: 07/08/[address]: Dr. Mario Reyes MD ~ Test Result Flag Adult Reference Range IBG Blood Gas Type ART SITE R Radial IRAJ TEST Positive Mode Not entered O2 Delivery Dev Room Air FI02 21.0 Time Given 22:56:[address] Yung Read Back By Yes pH 7.27 L 7.35-7.45 pCO2 11.3 *L 35-45 mmHg PO2 121 H 75-100 mmHG HCO3 5.1 L 22-26 mmol/L BE -22 L -2 to +2 mmol/L TOTAL CO2 6 mmol/L SO2 98 95-99 % Imaging Radiology Impression Chest X-Ray 07/08/24 18:00 IMPRESSION: Normal x-ray examination of the chest. Electronically Signed: Mihir Jean Baptiste MD at 18:22 EDT , Assessment & Plan Assessment/Plan (1) Diabetic ketoacidosis: QUALIFIERS: Diabetes mellitus complication detail: without coma Diabetes mellitus type: type 1 Qualified Code(s): E10.10 - Type 1 diabetes mellitus with ketoacidosis without coma (2) C. difficile enteritis: (3) Sepsis: QUALIFIERS: Sepsis acute organ dysfunction status: without acute organ dysfunction Sepsis type: sepsis due to unspecified organism Qualified Code(s): A41.9 - Sepsis, unspecified organism (4) Intractable nausea and vomiting: (5) Medical non-compliance: (6) History of venous thromboembolism: (7) Chronic anticoagulation: (8) Severe malnutrition: PLAN: Plan 1. DKA; in the setting of DM-1; uncontrolled with hyperglycemia due to medical noncompliance - Admit to ICU for treatment under the DKA protocol with IV insulin drip and BMP q. 4 hours. Recheck serum acetone and ABG in the AM to follow anticipated trend of improvement. 2. Suspected Sepsis evidence by: Severe Leukocytosis of 26.4K present on admission with 'Left shift' on hemogram likely due to recurrent Clostridium difficile Colitis with oral Vancomycin not able to be taken due to severe GI upset complicating #1 - Continue IV Flagyl and restart oral Vancomycin when patient is safely able to tolerate oral intake. 3. Intractable Nausea and Vomiting with abdominal pain in the setting of known Diabetic Gastroparesis, previous erosive esophagitis and GERD compounding #1 & #2 - Give Protonix 40 mg IV daily. Also give IV Zofran prn to control nausea and vomiting. 4. Metabolic Encephalopathy arising from #1 - #3 with a pH of 6.92 present on admission - Continue supportive care outlined above and monitor for improvement. 5. Recently diagnosed Clostridium difficile Colitis; on oral Vancomycin with recent admission here from April 10, 2024 to April 12, 2024 - Noted. 6. History of chronic severe protein-calorie malnutrition with history of dysphagia adding to the pathology of #1 - #4 - We will consult clinical dietitian to screen for malnutrition this admission with help appreciated in advance. 7. History of DVT and recurrent PE; on Xarelto - Continue Xarelto as previous. 8. Anemia of chronic disease - Stable with hemoglobin of 13.5 g/dL present on admission. 9. History of pericarditis attributed to MSSA treated at [facility] with ATB's (2021) - Noted. 10. History of stage II Left buttock ulcer and previous bilateral DFU's - Noted. 11. History of asthma - Stable with no evidence of acute flare. Continue prn nebulizers. 12. Depression with anxiety - Resume current regimen when patient can safely tolerate oral intake. 13. DVT prophylaxis - Patient is already on Xarelto for #6 which will be continued. Total time: Approximately 75 minutes. Sepsis Attestation Sepsis Alert: Yes Sepsis Attestation: Agree w/Sepsis Date exam was performed: 07/08/24 Time exam was performed: 19:45 Possible Source of Sepsis: GI tract/intra-abdominal Sepsis Organ Dysfunction Criteria Present: SBP < 90 mmHg or MAP < 65 mmHg, SBP decrease of more than 40 mmHg and Lactic Acid > 2 mmol/L Fluid Resuscitation Fluid resuscitation indicated?: Yes Fluid Resuscitation ordered: 30 ml/kg fluid bolus ordered Amount of fluid ordered: 3 Sepsis Note Date exam was performed: 07/08/24 Time exam was performed: 23:45 Sepsis Attestation: Sepsis re-evaluation was performed Response to fluids: Fluid responsive hypotension Charges/Coding Visit Charges Inpatient E&M: 14099 Init Hosp L3
[2024-07-08] MEDS: Sodium Bicarbonate 8.4% 50 ML Syringe 75 MEQ IV (20:13)
[2024-07-08 20:16] LABS: Bedside Glucose > 500 mg/dL (74-106)
[2024-07-08 20:22] LABS: Glucose 1033 mg/dL (74-106)
[2024-07-08 21:37] LABS: Phosphorus 9.2 mg/dL (2.5-4.9)
[2024-07-08 21:58] LABS: Lactic Acid 4.2 mmol/L (0.4-1.9)
[2024-07-08] MEDS: Sodium Bicarbonate 8.4% 50 ML Syringe 50 MEQ IV (22:10)
[2024-07-08 22:31] LABS: Bedside Glucose > 500 mg/dL (74-106)
[2024-07-08] MEDS: Pantoprazole Sodium 40 MG in 0.9% Normal Saline (100mL MB+) 100 ML 330 MG IV (22:42)
[2024-07-08 22:48] LABS: Glucose 603 mg/dL (74-106)
[2024-07-08] MEDS: Enoxaparin 80 MG/0.8 ML Syringe SC (22:50)
[2024-07-08] MEDS: Lactated Ringers 1,000 ML 200 ML IV (22:50)
[2024-07-08] MEDS: Vancomycin 125 MG/5 ML Susp PO.SYRINGE PO (22:51)
[2024-07-08] MEDS: metroNIDAZOLE 500 MG/100 ML BAG 100 MG IV (22:51)
[2024-07-08 22:59] LABS: Allen Test Positive; Base Excess -22 mmol/L (-2 to +2); Bicarbonate 5.1 mmol/L (22-26); Blood Gas Specimen Type ART; Mode Not entered; O2 Delivery Device Room Air; PO2 121 mmHG (75-100); SITE R Radial; SO2 98 % (95-99); Total Carbon Dioxide 6 mmol/L; pCO2 11.3 mmHg (35-45); pH 7.27 (7.35-7.45)
[2024-07-08 23:15] LABS: Bedside Glucose 437 mg/dL (74-106)
[2024-07-09] VITALS (22 sets, daily range): BP systolic 88–108; BP diastolic 44–61; PULSE 94–123; RESP 13–18; TEMP 36.1–36.7; O2SAT 97–100; BMI 24.1
[2024-07-09 00:45] LABS: Bedside Glucose 360 mg/dL (74-106)
[2024-07-09 01:18] LABS: Bedside Glucose 315 mg/dL (74-106)
[2024-07-09 01:23] LABS: Reflex Lactate? Y
[2024-07-09 01:36] LABS: Lactic Acid 1.5 mmol/L (0.4-1.9)
[2024-07-09 01:48] LABS: Anion Gap 30 (5-15); BUN 22 mg/dL (7-18); BUN/Creat Ratio 14.3 RATIO (10-20); Calcium,Total 8.7 mg/dL (8.5-10.1); Chloride 105 mmol/L (98-107); Creatinine, Serum 1.54 mg/dL (0.70-1.30); EST Glomerular Filtration Rate 60 mL/min (>60); Est Glom Filt Rate - Afr Amer 72 mL/min (>60); Estimated Creatinine Clearance 84.31 ml/min; Glucose 362 mg/dL (74-106); Potassium 4.1 mmol/L (3.5-5.1); Sodium Level 142 mmol/L (136-145)
[2024-07-09 03:18] LABS: Bedside Glucose 303 mg/dL (74-106)
[2024-07-09] MEDS: Lactated Ringers 1,000 ML 200 ML IV (04:51)
[2024-07-09 05:10] LABS: Bedside Glucose 270 mg/dL (74-106)
[2024-07-09 05:16] LABS: Absolute Lymphocyte Count 1.94 X10^3/uL (0.83-4.51); Basophil# 0.04 X10^3/uL; Basophil% 0.2 % (0-1); Eosinophil# 0.01 X10^3/uL; Eosinophils% 0.1 % (0-5); Hematocrit 33.1 % (40-54); Hemoglobin 11.5 g/dL (13.0-16.5); Lymphocyte # 1.94 X10^3/ul (0.83-4.51); Lymphocyte % 11.9 % (19-41); Mean Corp Hgb Conc 34.7 g/dL (32-36); Mean Corpuscular Hgb 26.2 pg (27.0-32.0); Mean Corpuscular Volume 75.4 fL (80-94); Mean Platelet Vol. 9.5 fl (6.2-12.0); Monocyte# 1.23 X10^3/uL; Monocyte% 7.5 % (0-10); NRBC Flagged by Analyzer 0 % (0-5); Neutrophil # 12.97 X10^3/uL (2.7-7.7); Neutrophil % 79.4 % (47-70); Platelet Count 343 K/mm3 (150-450); RBC Distribution Width CV 14.5 % (11.6-14.6); RBC Distribution Width SD 37.7 fl (35.1-43.9); Red Blood Count 4.39 M/mm3 (4.6-6.2); White Blood Count 16.3 K/mm3 (4.4-11.0)
[2024-07-09] MEDS: Ondansetron 4 MG/2 ML Vial IV ×2 (05:35→15:05)
[2024-07-09] MEDS: Enoxaparin 80 MG/0.8 ML Syringe SC ×2 (05:37→16:59)
[2024-07-09] MEDS: metroNIDAZOLE 500 MG/100 ML BAG 100 MG IV ×3 (05:37→22:18)
[2024-07-09] MEDS: Vancomycin 125 MG/5 ML Susp PO.SYRINGE PO ×4 (05:37→23:58)
[2024-07-09 05:49] LABS: Allen Test Positive; Base Excess -14 mmol/L (-2 to +2); Bicarbonate 11.7 mmol/L (22-26); Blood Gas Specimen Type ART; Mode Not entered; O2 Delivery Device Room Air; PO2 99 mmHG (75-100); SITE R Radial; SO2 97 % (95-99); Total Carbon Dioxide 12 mmol/L; pCO2 22.5 mmHg (35-45); pH 7.32 (7.35-7.45)
[2024-07-09 06:09] LABS: ALB/GLOB Ratio 1.1 RATIO (0.9-2.4); AST(SGOT) 10 U/L (15-37); Alanine Aminotransfer ALT/SGPT 23 U/L (16-61); Albumin, Serum 3.5 g/dL (3.2-5.0); Alkaline Phosphatase 137 U/L (45-117); Anion Gap 20 (5-15); BUN 20 mg/dL (7-18); BUN/Creat Ratio 13.7 RATIO (10-20); Calcium,Total 8.8 mg/dL (8.5-10.1); Chloride 110 mmol/L (98-107); Creatinine, Serum 1.46 mg/dL (0.70-1.30); EST Glomerular Filtration Rate 63 mL/min (>60); Est Glom Filt Rate - Afr Amer 77 mL/min (>60); Estimated Creatinine Clearance 88.93 ml/min; Globulin 3.3 g/dL (2.2-4.2); Glucose 284 mg/dL (74-106); Protein, Total 6.8 g/dL (6.4-8.2); Sodium Level 142 mmol/L (136-145); Thyroid Stim Hormone (TSH) 0.317 uIU/mL (0.358-3.740)
[2024-07-09 07:17] LABS: Bedside Glucose 251 mg/dL (74-106)
[2024-07-09] MEDS: Lactated Ringers 1,000 ML 999 ML IV ×4 (08:00→18:54)
[2024-07-09 09:11] LABS: Bedside Glucose 230 mg/dL (74-106)
[2024-07-09 09:44] LABS: Anion Gap 17 (5-15); BUN 18 mg/dL (7-18); BUN/Creat Ratio 13.2 RATIO (10-20); Calcium,Total 8.4 mg/dL (8.5-10.1); Chloride 113 mmol/L (98-107); Creatinine, Serum 1.36 mg/dL (0.70-1.30); EST Glomerular Filtration Rate 69 mL/min (>60); Est Glom Filt Rate - Afr Amer 83 mL/min (>60); Estimated Creatinine Clearance 95.47 ml/min; Glucose 249 mg/dL (74-106); Potassium 3.7 mmol/L (3.5-5.1); Sodium Level 144 mmol/L (136-145)
[2024-07-09] MEDS: Pantoprazole Sodium 40 MG in 0.9% Normal Saline (100mL MB+) 100 ML 330 MG IV (10:02)
[2024-07-09] MEDS: Dext 5%-0.45% NS 1,000 ML 150 ML IV ×3 (10:20→23:49)
[2024-07-09] MEDS: Potassium Chloride 10mEq/100mL 10 MEQ/100 ML IV.SOLN. 100 MEQ IV BOLUS ×4 (10:21→19:02)
--- NOTE | 2024-07-09 10:46 | CASEMGMT ---
Addendum entered by Joana Whitney 07/09/24 14:39: VERONA FONTANEZ attempted to complete assessment at this time, patient sleeping. VERONA FONTANEZ received call back from Judie FONTANEZ at [facility] and she is assigned to patient. Judie states that she has made several attempts to reach out to patient with no answer. VERONA FONTANEZ to assist Judie FONTANEZ coordinating conversation with patient while in the hospital to establish CM follow-up with [facility]. Judie's number is [phone]. CM will continue to follow this paitent and plan for a safe discharge. Addendum entered by Joana Whitney 07/09/24 11:04: VERONA FONTANEZ received call back from Scar FONTANEZ at [facility]. Per Scar, she is not assigned to this patient and looks like he is not assigned to a CM. Scar states she will follow up with team leaders for CM assignment for patient. CM will continue to follow this patient and plan for safe discharge. Original Note: VERONA FONTANEZ called [facility] to inquire if patient is established with CM through [facility]. Bert confirmed that patient has been assigned to Scar Goldsmith CM at [facility] [phone]. VERONA FONTANEZ called [facility], no answer, message left with return contact information. Patient is drowsy at this time and CM will attempt to complete assessment at later time.
[2024-07-09 11:22] LABS: Bedside Glucose 213 mg/dL (74-106)
[2024-07-09 13:07] LABS: Anion Gap 13 (5-15); BUN 16 mg/dL (7-18); BUN/Creat Ratio 12.7 RATIO (10-20); Calcium,Total 8.4 mg/dL (8.5-10.1); Chloride 113 mmol/L (98-107); Creatinine, Serum 1.26 mg/dL (0.70-1.30); EST Glomerular Filtration Rate 75 mL/min (>60); Est Glom Filt Rate - Afr Amer 91 mL/min (>60); Estimated Creatinine Clearance 103.05 ml/min; Glucose 232 mg/dL (74-106); Potassium 3.8 mmol/L (3.5-5.1); Sodium Level 143 mmol/L (136-145)
[2024-07-09 13:16] LABS: Bedside Glucose 215 mg/dL (74-106)
[2024-07-09 14:16] LABS: Bedside Glucose 211 mg/dL (74-106)
[2024-07-09] MEDS: 0.9% Saline Lock 10 ML Syringe IV ×2 (15:05→16:26)
[2024-07-09 15:20] LABS: Bedside Glucose 191 mg/dL (74-106)
[2024-07-09 17:11] LABS: Anion Gap 9 (5-15); BUN 13 mg/dL (7-18); BUN/Creat Ratio 10.2 RATIO (10-20); Calcium,Total 8.4 mg/dL (8.5-10.1); Chloride 114 mmol/L (98-107); Creatinine, Serum 1.28 mg/dL (0.70-1.30); EST Glomerular Filtration Rate 74 mL/min (>60); Est Glom Filt Rate - Afr Amer 89 mL/min (>60); Estimated Creatinine Clearance 101.44 ml/min; Glucose 208 mg/dL (74-106); Potassium 3.4 mmol/L (3.5-5.1); Sodium Level 144 mmol/L (136-145)
[2024-07-09 17:15] LABS: Bedside Glucose 178 mg/dL (74-106)
--- NOTE | 2024-07-09 17:23 | PN.HOSP_ITS ---
Reason for Visit Reason for Visit: Diagnoses Enterocolitis due to Clostridium difficile, not specified as recurrent (07/08/24) Sepsis, unspecified organism (07/08/24) Type 1 diabetes mellitus with ketoacidosis without coma (07/08/24) Unspecified severe protein-calorie malnutrition (07/08/24) Nausea with vomiting, unspecified (07/08/24) skilled nursing (current) use of anticoagulants (07/08/24) Personal history of other venous thrombosis and embolism (07/08/24) Patient's noncompliance with other medical treatment and regimen due to unspecified reason (07/08/24) Subjective Subjective Patient was seen and examined today, he still complaining of nausea, no actual vomiting however. Patient's been having no diarrhea-I canceled the C. difficile stool test. Patient's anion gap has been closed x 2, I placed him on some basal insulin and insulin given with a sliding scale. I have elected to give the patient more fluid because I still think he is actually dry. Objective Data Objective Data Vital Signs: Vital Signs Temp Pulse Resp BP Pulse Ox O2 Del Method 98.0 F 108 H 15 105/48 L 98 Room Air 07/09/24 12:00 07/09/24 17:00 07/09/24 17:00 07/09/24 17:00 07/09/24 17:00 07/09/24 17:00 Oxygen Delivery Method Room Air Weight: 83.1 kg Body Mass Index (BMI) 24.1 Intake & Output: Intake and Output for Last 24 Hours 07/07/24 07/08/24 07/09/24 23:59 23:59 23:59 Intake Total 3234.24 / 3235.68 5361.69 / 5361.69 Output Total 2500 / 3400 3475 / 3475 Balance 734.24 / -164.32 1886.69 / 1886.69 Medical Nutrition Assessment Dietitian: Malnutrition Criteria Met Start: 07/09/24 10:48 Freq: Status: Active Protocol: Document 07/09/24 10:48 RMA (Rec: 07/09/24 10:48 RMA [id number]) Nutrition Malnutrition Evidence of Malnutrition Exists Yes Malnutrition (severe): Chronic Evidenced By Suboptimal Energy Intake ( Severe),Weight Loss (Severe) Intake Problem Inadequate Oral Intake Etiology related to altered GI function , N/V and hyperglycemia/DKA Signs/Symptoms as evidenced by NPO and blood glucose 284 Status Active Problem Clinical Problem Chronic Disease or Condition Related Malnutrition Etiology Severe protein-calorie malnutrition in the context of chronic disease, poor glycemic control and diabetic noncompliance related to disordered eating, inadequate oral intake and hyperglycemia Signs/Symptoms as evidenced by PO meeting less than 50% estimated nutrition needs x 3 months, unintentional weight loss ~8% x 3-4 months, BMI 24.2, blood glucose 1103 on admission Status Active Problem Recommendation Dietitian Recommendations/Changes Recommend advance diet as tolerated to 2200 calorie/ consistent carbohydrate with 120mL glucerna shake 3 times per day w/ meals. Plan for diet education as pt willing to receive prior to d/ c. Lab / Micro Data 07/09/24 04:45 07/09/24 16:30 Labs: Laboratory Results - last 24 hr 07/08/24 17:50: Urine Color Yellow, Urine Clarity Clear, Urine pH 5.0, Ur Specific Lebo 1.010, Urine Protein 15 H, Urine Glucose (UA) 1000 H, Urine Ketones 150 A*, Urine Occult Blood Negative, Urine Nitrite Negative, Urine Bilirubin Negative, Urine Urobilinogen Normal, Ur Leukocyte Esterase Negative, Urine RBC 0 SEEN, Urine WBC 0 SEEN, Ur Squamous Epith Cells 0 SEEN, Urine Bacteria 0 SEEN, Urine Mucus 0 SEEN, Urine Opiates Screen NEGATIVE, Urine Methadone Screen NEGATIVE, Ur Barbiturates Screen NEGATIVE, Ur Phencyclidine Scrn NEGATIVE, Ur Amphetamines Screen NEGATIVE, MDMA (Ecstasy) Screen NEGATIVE, U Benzodiazepines Scrn NEGATIVE, Urine Cocaine Screen NEGATIVE, U Cannabinoids Screen NEGATIVE, Ur Drug Screen Comment 07/08/24 18:00: WBC 26.4 H, RBC 5.19, Hgb 13.5, Hct 43.6, MCV 84.0, MCH 26.0 L, MCHC 31.0 L, RDW Std Deviation 42.8, RDW Coeff of Rabia 14.3, Plt Count 473 H, MPV 10.4, Immature Gran % (Auto) 1.100 H, Neut % (Auto) 77.1 H, Lymph % (Auto) 13.5 L, Monroe % (Auto) 7.7, Eos % (Auto) 0.1, Baso % (Auto) 0.5, Absolute Neuts (auto) 20.3 H, Absolute Lymphs (auto) 3.57, Nucleated RBC % 0, Differential Comment SCANNED, Diff Path Review March, Sodium 125 L, Potassium 6.7 H*, Chloride 80 L, Carbon Dioxide 4.0 L*, Anion Gap 41 H, BUN 27 H, Creatinine 2.51 H, Estim Creat Clear Calc 51.73, Est GFR (MDRD) Af Amer 41 L, Est GFR (MDRD) Non-Af 34 L, BUN/Creatinine Ratio 10.8, Glucose 1103 H*, Calcium 9.8, Magnesium 2.9 H, Total Bilirubin 1.30 H, Direct Bilirubin 0.22, AST 14 L, ALT 32, Alkaline Phosphatase 197 H, Total Protein 8.2, Albumin 4.4, Globulin 3.8, Acetone Level LARGE H 07/08/24 19:58: POC Glucose > 500 H* 07/08/24 20:02: Glucose 1033 H*, Phosphorus 9.2 H* 07/08/24 21:15: Lactic Acid 4.2 H* 07/08/24 22:00: Glucose 603 H* 07/08/24 22:05: POC Glucose > 500 H* 07/08/24 22:56: POC Glucose 437 H 07/09/24 00:24: POC Glucose 360 H 07/09/24 00:58: Sodium 142, Potassium 4.1, Chloride 105, Carbon Dioxide 7.0 L*, Anion Gap 30 H, BUN 22 H, Creatinine 1.54 H, Estim Creat Clear Calc 84.31, Est GFR (MDRD) Af Amer 72, Est GFR (MDRD) Non-Af 60, BUN/Creatinine Ratio 14.3, G lucose 362 H, Lactic Acid 1.5, Calcium 8.7 07/09/24 00:59: POC Glucose 315 H 07/09/24 02:59: POC Glucose 303 H 07/09/24 04:45: WBC 16.3 H, RBC 4.39 L, Hgb 11.5 L, Hct 33.1 L, MCV 75.4 L D, M CH 26.2 L, MCHC 34.7 D, RDW Std Deviation 37.7, RDW Coeff of Rabia 14.5, Plt Count 343, MPV 9.5, Immature Gran % (Auto) 0.900, Neut % (Auto) 79.4 H, Lymph % (Auto) 11.9 L, Monroe % (Auto) 7.5, Eos % (Auto) 0.1, Baso % (Auto) 0.2, Absolute Neuts (auto) 13.0 H, Absolute Lymphs (auto) 1.94, Nucleated RBC % 0, Sodium 142 07/09/24 04:45: Sodium Cancelled, Potassium 4.0 07/09/24 04:45: Potassium Cancelled, Chloride 110 H 07/09/24 04:45: Chloride Cancelled, Carbon Dioxide 12.0 L 07/09/24 04:45: Carbon Dioxide Cancelled, Anion Gap 20 H 07/09/24 04:45: Anion Gap Cancelled, BUN 20 H 07/09/24 04:45: BUN Cancelled, Creatinine 1.46 H 07/09/24 04:45: Creatinine Cancelled, Estim Creat Clear Calc 88.93 07/09/24 04:45: Estim Creat Clear Calc Cancelled, Est GFR (MDRD) Af Amer 77 07/09/24 04:45: Est GFR (MDRD) Af Amer Cancelled, Est GFR (MDRD) Non-Af 63 07/09/24 04:45: Est GFR (MDRD) Non-Af Cancelled, BUN/Creatinine Ratio 13.7 07/09/24 04:45: BUN/Creatinine Ratio Cancelled, Glucose 284 H 07/09/24 04:45: Glucose Cancelled, Calcium 8.8 07/09/24 04:45: Calcium Cancelled, Total Bilirubin 1.10 H, AST 10 L, ALT 23, A lkaline Phosphatase 137 H, Total Protein 6.8, Albumin 3.5, Globulin 3.3, Albumin/Globulin Ratio 1.1, TSH 0.317 L, Acetone Level LARGE H 07/09/24 04:49: POC Glucose 270 H 07/09/24 07:00: POC Glucose 251 H 07/09/24 08:45: Sodium 144, Potassium 3.7, Chloride 113 H, Carbon Dioxide 14.0 L , Anion Gap 17 H, BUN 18, Creatinine 1.36 H, Estim Creat Clear Calc 95.47, Est GFR (MDRD) Af Amer 83, Est GFR (MDRD) Non-Af 69, BUN/Creatinine Ratio 13.2, G lucose 249 H, Calcium 8.4 L 07/09/24 08:51: POC Glucose 230 H 07/09/24 10:56: POC Glucose 213 H 07/09/24 12:38: Sodium 143, Potassium 3.8, Chloride 113 H, Carbon Dioxide 17.0 L , Anion Gap 13, BUN 16, Creatinine 1.26, Estim Creat Clear Calc 103.05, Est GFR (MDRD) Af Amer 91, Est GFR (MDRD) Non-Af 75, BUN/Creatinine Ratio 12.7, Glucose 232 H, Calcium 8.4 L 07/09/24 12:55: POC Glucose 215 H 07/09/24 13:58: POC Glucose 211 H 07/09/24 15:00: POC Glucose 191 H 07/09/24 16:30: Sodium 144, Potassium 3.4 L, Chloride 114 H, Carbon Dioxide 21.0, Anion Gap 9, BUN 13, Creatinine 1.28, Estim Creat Clear Calc 101.44, Est GFR (MDRD) Af Amer 89, Est GFR (MDRD) Non-Af 74, BUN/Creatinine Ratio 10.2, G lucose 208 H, Calcium 8.4 L 07/09/24 16:55: POC Glucose 178 H Micro: Microbiology 07/08/24 18:15 Mucosa - Nose SARS-CoV-2, Influenza & RSV (PCR) - Final ABG Data ABG results: ABG 07/08/24 07/08/24 07/09/24 18:16 22:55 05:46 Specimen Type MARILYNN ART ART Sample Site Not entered R Radial R Radial pH 7.27 L 7.32 L Bicarbonate Actual 5.1 L 11.7 L Total CO2 6 12 Base Excess -22 L -14 L O2 Saturation 98 97 O2 % 21.0 21.0 ABG pCO2 11.3 L* 22.5 L ABG pO2 121 H 99 Hector Test Positive Positive VBG pH 6.92 L* VBG pO2 51 H VBG Total CO2 < 5 L VBG O2 Sat (Calc) 62 VBG Base Excess -29 L POC Mix VBG pCO2 Pt Tmp 15.5 L* O2 Delivery Device Room Air Room Air Room Air Vent Mode Not entered Not entered Crit Call To/Read Back Yes Yes Blood Gas Notified Whom dr thi Monterroso Blood Gas Notified Time 18:19:01 22:56:59 Radiography Diagnostic Testing: Radiology Impression Chest X-Ray 07/08/24 18:00 IMPRESSION: Normal x-ray examination of the chest. Electronically Signed: Mihir Jean Baptiste MD at 18:22 EDT , Physical Exam Const alert, oriented x3 and no apparent distress Constitutional Narrative: Patient appears unwell General Appearance: cooperative and well developed Orientation / Consciousness: awake, oriented to person, oriented to place and oriented to time HEENT normocephalic, head/scalp atraumatic and moist oral mucous membranes Eyes PERRL, EOMs intact bilaterally and conjunctivae normal Neck supple, no JVD, thyroid normal and no carotid bruits General: trachea midline Resp normal respiratory effort, no retractions, no use of accessory muscles and clear to auscultation bilaterally Auscultation: Negative for rales, rhonchi or wheezes Cardio regular rate, regular rhythm, S1 normal heart sound, S2 normal heart sound, no murmurs, no rub and no gallops GI normal to inspection, nondistended, normoactive bowel sounds, soft to palpation, non-tender and non-distended Extremity no clubbing, cyanosis or edema Skin no rashes or lesions noted General Skin Exam: no breakdown Neuro oriented x3, CN's II-XII intact bilaterally, moves all extremities, no focal motor deficits and no sensory deficits noted Sensorium / Orientation: awake and alert Speech: speech normal Psych affect normal Assessment & Plan Assessment/Plan (1) Intractable nausea and vomiting: PLAN: Plan 1. DKA-secondary to poorly controlled type 1 diabetes, patient was placed on basal insulin, his insulin drip was stopped, labs will be continued #2 intractable nausea and vomiting secondary to DKA-continue supportive care, patient was placed on a diet #3 hypokalemia secondary to DKA-potassium will be replaced, labs will be monitored Total clinical time spent by myself addressing the patient's medical issues, reviewing all of his data, and collaborating with patient's care team: 35 minutes Charges/Coding Visit Charges Inpatient E&M: 17525 Subs Hosp L2
[2024-07-09] MEDS: Insulin Glargine-YFGN 100 UNIT/ML Pen 25 UNIT SC (18:11)
--- NOTE | 2024-07-09 18:30 | NURSING ---
Spoke with CM earlier regarding follow up care. Grandmother in at bedside visiting now, went over home meds. Both patient and grandmother had different reasons for not taking medications at home. Patient could not recall the last time he took insulin or checked his sugar at home, has not been wearing glucose monitor. The last one fell off and he just never put one back on. Grandmother stated his prescribed Lantus and Lispro TID is too much insulin, so she told him not to take that much as she does not want his sugar to drop. This nurse attempted to educate both patient and grandmother that his is prescribed that much per his physician d/t how high his BG levels run. CM to follow up with patient tomorrow after patient is not as drowsy.
[2024-07-09] MEDS: 0.9% Normal Saline (250mL Bag) 250 ML 15 ML IV (18:55)
[2024-07-09 19:19] LABS: Bedside Glucose 162 mg/dL (74-106)
[2024-07-09 22:58] LABS: Bedside Glucose 261 mg/dL (74-106)
[2024-07-09] MEDS: Insulin Lispro 100 UNIT/ML INSULN.PEN SC (23:52)
[2024-07-10 02:00] VITALS: BP 107/62; PULSE 87; RESP 16; TEMP 36.6; O2SAT 99
[2024-07-10 04:50] VITALS: BMI 26.1
[2024-07-10 05:00] LABS: Hematocrit 29.4 % (40-54); Hemoglobin 9.9 g/dL (13.0-16.5); Mean Corp Hgb Conc 33.7 g/dL (32-36); Mean Corpuscular Hgb 26.5 pg (27.0-32.0); Mean Corpuscular Volume 78.6 fL (80-94); Mean Platelet Vol. 9.7 fl (6.2-12.0); Platelet Count 228 K/mm3 (150-450); RBC Distribution Width CV 15.6 % (11.6-14.6); RBC Distribution Width SD 43.8 fl (35.1-43.9); Red Blood Count 3.74 M/mm3 (4.6-6.2); White Blood Count 8.4 K/mm3 (4.4-11.0)
[2024-07-10 05:20] LABS: Anion Gap 13 (5-15); BUN 7 mg/dL (7-18); BUN/Creat Ratio 6.9 RATIO (10-20); Chloride 107 mmol/L (98-107); Creatinine, Serum 1.01 mg/dL (0.70-1.30); EST Glomerular Filtration Rate 97 mL/min (>60); Est Glom Filt Rate - Afr Amer 117 mL/min (>60); Estimated Creatinine Clearance 128.55 ml/min; Glucose 296 mg/dL (74-106); Potassium 3.4 mmol/L (3.5-5.1); Sodium Level 139 mmol/L (136-145)
[2024-07-10] MEDS: metroNIDAZOLE 500 MG/100 ML BAG 100 MG IV (06:11)
[2024-07-10] MEDS: Vancomycin 125 MG/5 ML Susp PO.SYRINGE PO (06:11)
[2024-07-10] MEDS: Enoxaparin 80 MG/0.8 ML Syringe SC (06:13)
[2024-07-10] MEDS: Dext 5%-0.45% NS 1,000 ML 150 ML IV (06:14)
[2024-07-10] MEDS: Insulin Lispro 100 UNIT/ML INSULN.PEN SC ×2 (06:21→11:50)
[2024-07-10 06:24] VITALS: BP 99/47; PULSE 94; RESP 15; TEMP 36.6; O2SAT 99
[2024-07-10 06:45] LABS: Bedside Glucose 277 mg/dL (74-106)
[2024-07-10 08:00] VITALS: O2SAT 99
[2024-07-10 08:31] LABS: Pathologist Review Reviewed
[2024-07-10 10:00] VITALS: BP 110/63; PULSE 111; RESP 11; TEMP 36.7; O2SAT 99
[2024-07-10] MEDS: Pantoprazole Sodium 40 MG in 0.9% Normal Saline (100mL MB+) 100 ML 330 MG IV (10:10)
[2024-07-10] MEDS: Potassium Chloride Oral Tablet 20 MEQ PO (10:10)
--- NOTE | 2024-07-10 11:40 | CASEMGMT ---
Addendum entered by Maddi Reyna 07/11/24 10:01: VERONA FONTANEZ spoke w/Judie Gibson CM, and updated her that pt was discharged from [facility] yesterday and on upcoming appts. Addendum entered by Maddi Reyna 07/10/24 16:59: Pt's grandmother/POA, Ines, and mother, Kathi, here to take pt home. RN CM to room. Introduced self and role. Discussed pt's upcoming/scheduled appts w/Dr Elise and ARCHANA Long w/Ines and she voices understanding. She was made aware pt stated would arrange for transportation through his insurance. Discussed importance of transportation being arranged for all of these appts if she is unable to take him and she voices understanding. She states she may be able to get off of work early to be able to go to the appt in August w/ARCHANA Long, but she is not sure. Discussed Rx's that have been sent to [facility] and importance of him picking up the long-acting insulin (insulin glargine) this PM that he is out of. Also made aware there are refills remaining @ [facility] for the insulin lispro and needles and test strips. She voices understanding. Scripts for the Dexcom G7 sensor kit and director employee safety and health given to Jt, in addition to script for glucometer. She states she knows where his glucometer is at the house and is aware pt stated he did not have his CGM on for a few days prior to being admitted. Kathi inquired about who pt could reach out to re: him getting a job. VERONA FONTANEZ recommended they call [employer]. She voices appreciation. Jt, Alina, and pt deny having other discharge needs/questions. Addendum entered by Maddi Reyna 07/10/24 12:32: Pt states he will be able to get transportation to the appts w/Dr Elise, stating he will call the insurance company to set this up and denies needing assistance with this. Original Note: RN CM risk professional CM to room to meet with patient for initial transition planning/care coordination assessment. RN HUSEYIN introduced self and role at [facility], pt voices understanding. Pt is A&Ox4 and is resting comfortably in bed and is calm. Care providers, pharmacy, and demographics verified. LACE Strata: 3 PCP: Pt was seeing Dr Reyes--Per Dr Be, Dr Reyes has dismissed him and he has appt scheduled w/Dr Elise to get established as a new patient Sep 16 @ 9:[address] AM[address] to [address] Elise's office. Acute Hosp f/u appt scheduled w/Dr Elise on Jul 22 @ 10 AM. These appts were entered in dc plan and pt made aware. Specialists: ARCHANA Raymond ([employer] in [place])--he does not know how long it has been since he has been in to see her, stating, It's been awhile. Call placed to ARCHANA Raymond's office @ [phone]. Next available appt w/her is Sep 11 @ 2:45 PM. Appt scheduled, placed in pt's dc plan and pt was made aware. Pt states that he does not follow at the counseling center anymore. Preferred Pharmacy: [facility] Pt agreeable to talking w/CM @ [facility] who has been assigned to pt, Judie ([phone]). Call placed to Judie while VERONA FONTANEZ @ bedside w/pt and Judie spoke w/pt on the phone. Pt gave permission for VERONA FONTANEZ to give Judie his GM's # (Ines) and this was given to her at this time. Prescription Benefit: Yes Medications: Pt states he is out of long-acting insulin (insulin glargine) and he only has 2 pens of short-acting (insulin lispro). He also states he has been out of Xarelto for about a week. Dr Be made aware of all of above. Call placed to [facility] and the following info obtained: Insulin glargine: last time this med was filled was February 24, 2024 (Rx was from ARCHANA Noriega). No refills remaining. is aware and planning to speak to ARCHANA Raymond. Insulin lispro: last time filled was March 18, 2024 (Rx from ARCHANA Noriega). Refills are remaining. Xarelto: last time filled was May 17, 2024 (Rx from Dr Reyes). No refills remaining. K+: Has not been filled since January,. Insulin pen needles, 8 mm: No refills. Dr Castro aware and states will send Rx for same @ dc. Dexcom G7 sensor kit: no refills. Script obtained from Dr Be and provided to pt. Dexcom director employee safety and health: no refills. Script obtained from Dr Be and provided to pt. One touch verio test strips: refills are remaining. LNOK: Ines Light (GM and HCPOA), Sobia Light (Aunt) Living Arrangements: Pt lives with his GM, Mom, Aunt, Brother, and Cousin in a 2 story home with a FFSU and 2 steps to enter ADLs/IADLs: Ind Transportation: , Insurance DME: [employer]ane at home but does not use. Pt states that he has a working CGM and enough supplies to check his BS levels. Per H/P, pt stated that he lost his insulin pump. Pt states he does not have an insulin pump, just a CGM, and states he knows where the CGM is and that he was talking about his glucometer- He did not know where his back-up glucometer is. He states he did not have the CGM on, stating It fell off and states he got side-tracked and didn't put one back on again. He states it was off for about 3 days. He states he continued to administer the short-acting insulin @ meal-time w/out checking his sugars, but did not take the long-acting d/t being out of it, and states missed about 2 dose of the long-acting. Pt states that he gets sensor refills through [facility]. Dr Be gave VERONA FONTANEZ script for another glucometer and this was provided to pt. HHC/SNF: Denies history or needs CCN: Pt was active w/CCN, but they discharged him d/t non-compliance. Pt states would be willing to get established w/them again, if they would be willing to accept him again. Call placed to Wilfredo @ [facility]. She states they are not willing to accept pt again. Plan: Home Ena LEVINEN VERONA FONTANEZ
[2024-07-10] MEDS: Insulin Glargine-YFGN 100 UNIT/ML Pen 35 UNIT SC (11:50)
[2024-07-10 12:11] LABS: Bedside Glucose 264 mg/dL (74-106)
--- NOTE | 2024-07-10 14:12 | PCM.DC ---
Discharge Instructions Diet Discharge Diet: 2200 Calorie Control Diet Activity Discharge Activity: Return to Normal Activity Weight Bearing Status: Full weight bearing Follow Up Care Test Results: Test results from this visit will be discussed in further detail at your follow-up appointment, if applicable. Discharge Plan Admission Admit Date/Time: 07/08/24 20:21 Primary Reason for Your Visit: dka Attending Provider: Satish Be Primary Care Provider: Christiano Elise Consulting Providers: Will Yung Discharge Orders/Prescriptions Prescriptions: New insulin glargine-yfgn 100 unit/mL (3 mL) Insulin Pen 35 unit subcut BID Qty: 10 0RF (DME) pen needle, diabetic 31 gauge x 1/3 needle See Rx Instructions .Route Qty: 100 3RF Rx Instructions: As directed Continued insulin lispro [Humalog KwikPen Insulin] 100 unit/mL insulin pen See Protocol subcut ACHS Protocol: 6. Sliding Scale Insulin Custom Condition: mg/dl range Dose/Route: Number of Units Condition: 150-199 Dose/Route: 2 Condition: 200-249 Dose/Route: 4 Condition: 250-299 Dose/Route: 6 Condition: 300-349 Dose/Route: 8 Condition: 350-399 Dose/Route: 10 Condition: 400-449 Dose/Route: 12 Condition: 450-499 Dose/Route: 14 Condition: 500> Instruction: CALL PCP Protocol Text: Custom Sliding Scale (DME) OneTouch Verio test strips Strip See Rx Instructions .ROUTE .MEDSUPPLY Rx Instructions: 4x/day (DME) FreeStyle Niru 14 Day Sensor Kit See Rx Instructions .ROUTE .MEDSUPPLY Rx Instructions: As directed insulin lispro 100 unit/mL insulin pen 25 unit subcut TIDAC Rx Instructions: Hold if glucose less than 130 mg/dl Discontinued (DME) pen needle, diabetic [BD Ultra-Fine Lorin Pen Needle] 32 gauge x 5/32 needle See Rx Instructions .ROUTE .MEDSUPPLY Rx Instructions: As directed potassium chloride 20 mEq tablet,ER particles/crystals 40 meq PO DAILY insulin glargine [Lantus Solostar U-100 Insulin] 100 unit/mL (3 mL) insulin pen 35 unit SUBCUT BID Rx Instructions: Hold if glucose less than 130 mg/dl Referrals / Follow Up: Christiano Elise MD [Primary Care Provider] - 07/22/24 10:00 am (This appt on 07/22 is a hospital follow-up appt. You also have an appt w/Dr Arik Valles @ 9:20 AM to get established as a new patient. ) Elise Raymond MANAGER BUSINESS, MANAGER BUSINESS-C [Non-Staff] - 09/11/24 2:45 pm (This appt is @ the [facility] building Address: [address] [place] [address] Phone #: [phone] ) Disposition Disposition (needs filled in before D/C Order can be placed): Home, Self Care
--- NOTE | 2024-07-10 14:19 | PCM.DC.SUM ---
Providers Date of Admission: 07/08/24 Date of Discharge: 07/10/24 Primary Care Physician: Dr. Christiano Elise MD Reason For Visit: DKA WITH SEVERE LEUKOCYTOSIS OF 26.4 POA Diagnosis Discharge Diagnosis (1) Intractable nausea and vomiting: Status: Acute Code(s): R11.2 - Nausea with vomiting, unspecified Plan 1. DKA-secondary to poorly controlled type 1 diabetes, patient was placed on basal insulin, his insulin drip was stopped, labs will be continued #2 intractable nausea and vomiting secondary to DKA-continue supportive care, patient was placed on a diet #3 hypokalemia secondary to DKA-potassium will be replaced, labs will be monitored #4 chronic noncompliance with medical instructions/care #5 hyperkalemia secondary to DKA #6 hyponatremia secondary to DKA Total clinical time spent by myself addressing the patient's medical issues, reviewing all of his data, and collaborating with patient's care team: 35 minutes Medications at Discharge Home Medications insulin lispro 100 unit/mL subcutaneous pen (Humalog KwikPen (U-100) Insulin) See Protocol subcut ACHS DIABETES 07/24/22 blood sugar diagnostic (OneTouch Verio test strips) 02/27/23 flash glucose sensor (FreeStyle Niru 14 Day Sensor kit) 02/27/23 insulin lispro 100 unit/mL subcutaneous pen 25 unit subcut TIDAC DIABETES 10/05/23 insulin glargine-yfgn 100 unit/mL (3 mL) subcutaneous pen 35 unit (0.35 mL) subcut BID #10 pens 07/10/24 pen needle, diabetic 31 gauge x 1/3 #100 ea 07/10/24 Hospital Course Operations None Procedures None Summary of Care Provided Minutes Spent on Discharge: 31 Hospital Course: This 23-year-old white male was seen in the emergency room at [facility] with complaints of nausea and vomiting and malaise. Workup was performed in the emergency room that revealed the patient was in DKA. Patient was transferred to ICU on an insulin drip and given IV fluids, BMPs were monitored, patient's nausea and vomiting resolved. In contacting the patient's PCP it was noted that the patient was discharged from the practice due to the fact he did not go to his office visits. Patient also had not seen his counseling specialist in almost a year. Patient stated that there were problems getting into the office for office visits but he did not elaborate. Patient was also out of Xarelto which she had been on for quite some time, I was able to talk to the patient's previous PCP and he stated the patient only had 1 episode of VTE and that was over a year ago. I made the decision to take the patient off his Xarelto. manager floral set up appointments for the patient to see his counseling specialist and a new PCP within the next 4 weeks. On 07/09/2024, patient was seen and examined: On examination he appeared in good health and spirits. Vital signs as documented. Skin warm and dry and without overt rashes. Neck without JVD, neck was supple, trachea midline, thyroid was normal. Lungs clear bilaterally, normal air movement was noted. Heart exam notable for regular rhythm, normal sounds and absence of murmurs, rubs or gallops. Abdomen unremarkable and without evidence of organomegaly, masses, or abdominal aortic enlargement. Bowel sounds are present, abdomen is not distended. Extremities nonedematous, no cyanosis was noted, no clubbing was noted. Neuro: Cranial nerves II through XII are grossly intact, no focal motor deficits were noted, sensation to light touch and pinprick intact, motor exam 5/5 throughout. Psych: Patient is alert and oriented x3, he does not appear anxious or depressed, he does not appear agitated. Patient was discharged home in stable condition on 07/09/2024. Medical Records Data Medical Nutrition Assessment Dietitian: Malnutrition Criteria Met Start: 07/09/24 10:48 Freq: Status: Active Protocol: Document 07/09/24 10:48 RMA (Rec: 07/09/24 10:48 RMA [id number]) Nutrition Malnutrition Evidence of Malnutrition Exists Yes Malnutrition (severe): Chronic Evidenced By Suboptimal Energy Intake ( Severe),Weight Loss (Severe) Intake Problem Inadequate Oral Intake Etiology related to altered GI function , N/V and hyperglycemia/DKA Signs/Symptoms as evidenced by NPO and blood glucose 284 Status Active Problem Clinical Problem Chronic Disease or Condition Related Malnutrition Etiology Severe protein-calorie malnutrition in the context of chronic disease, poor glycemic control and diabetic noncompliance related to disordered eating, inadequate oral intake and hyperglycemia Signs/Symptoms as evidenced by PO meeting less than 50% estimated nutrition needs x 3 months, unintentional weight loss ~8% x 3-4 months, BMI 24.2, blood glucose 1103 on admission Status Active Problem Recommendation Dietitian Recommendations/Changes Recommend advance diet as tolerated to 2200 calorie/ consistent carbohydrate with 120mL glucerna shake 3 times per day w/ meals. Plan for diet education as pt willing to receive prior to d/ c. Weight / BMI Weight Weight: 89.3 kg Body Mass Index (BMI) 26.1 ABG / Lab / Microbiology Data 07/10/24 04:10 07/10/24 04:10 Laboratory: Laboratory Results - last 24 hr 07/08/24 18:00: Diff Path Review Reviewed 07/09/24 15:00: POC Glucose 191 H 07/09/24 16:30: Sodium 144, Potassium 3.4 L, Chloride 114 H, Carbon Dioxide 21.0, Anion Gap 9, BUN 13, Creatinine 1.28, Estim Creat Clear Calc 101.44, Est GFR (MDRD) Af Amer 89, Est GFR (MDRD) Non-Af 74, BUN/Creatinine Ratio 10.2, Glucose 208 H, Calcium 8.4 L 07/09/24 16:55: POC Glucose 178 H 07/09/24 19:00: POC Glucose 162 H 07/09/24 22:37: POC Glucose 261 H 07/10/24 04:10: WBC 8.4, RBC 3.74 L, Hgb 9.9 L, Hct 29.4 L, MCV 78.6 L, MCH 26.5 L, MCHC 33.7, RDW Std Deviation 43.8, RDW Coeff of Rabia 15.6 H, Plt Count 228, MPV 9.7, Sodium 139, Potassium 3.4 L, Chloride 107, Carbon Dioxide 19.0 L, Anion Gap 13, BUN 7, Creatinine 1.01, Estim Creat Clear Calc 128.55, Est GFR (MDRD) Af Amer 117, Est GFR (MDRD) Non-Af 97, BUN/Creatinine Ratio 6.9 L, Glucose 296 H, Calcium 8.0 L 07/10/24 06:17: POC Glucose 277 H 07/10/24 11:49: POC Glucose 264 H Microbiology: Microbiology 07/08/24 18:15 Mucosa - Nose SARS-CoV-2, Influenza & RSV (PCR) - Final D/C Instructions Discharge Diet: 2200 Calorie Control Diet Weight Bearing Status: Full weight bearing Meaningful Use Info Meaningful Use Meaningful Use Diagnoses (Choose all that apply): None applicable Ischemic Stroke Statin Dosing Therapy Reference: STATIN DOSE THERAPY REFERENCE: * Patients > 75 years receive moderate or high dose statin therapy. * Patients 75 years or YOUNGER should receive HIGH intensity statin dose unless contraindicated. You will be required to document reason for non-treatment if statin daily dose does not meet guidelines. HIGH DOSE STATIN THERAPY DAILY Atorvastatin > than or = to 40 mg Rosuvastatin > than or = to 20 mg Amlodipine + Atorvastatin > than or = to 2.5/40 mg Ezetimibe + Simvastatin 10/80 mg Simvastatin 80mg Discharge Plan Admission Admit Date/Time: 07/08/24 20:21 Primary Reason for Your Visit: dka Attending Provider: Satish Be Primary Care Provider: Christiano Elise Consulting Providers: Will Yung Discharge Orders/Prescriptions Prescriptions: New insulin glargine-yfgn 100 unit/mL (3 mL) Insulin Pen 35 unit subcut BID Qty: 10 0RF (DME) pen needle, diabetic 31 gauge x 1/3 needle See Rx Instructions .Route Qty: 100 3RF Rx Instructions: As directed Continued insulin lispro [Humalog KwikPen Insulin] 100 unit/mL insulin pen See Protocol subcut ACHS Protocol: 6. Sliding Scale Insulin Custom Condition: mg/dl range Dose/Route: Number of Units Condition: 150-199 Dose/Route: 2 Condition: 200-249 Dose/Route: 4 Condition: 250-299 Dose/Route: 6 Condition: 300-349 Dose/Route: 8 Condition: 350-399 Dose/Route: 10 Condition: 400-449 Dose/Route: 12 Condition: 450-499 Dose/Route: 14 Condition: 500> Instruction: CALL PCP Protocol Text: Custom Sliding Scale (DME) OneTouch Verio test strips Strip See Rx Instructions .ROUTE .MEDSUPPLY Rx Instructions: 4x/day (DME) FreeStyle Niru 14 Day Sensor Kit See Rx Instructions .ROUTE .MEDSUPPLY Rx Instructions: As directed insulin lispro 100 unit/mL insulin pen 25 unit subcut TIDAC Rx Instructions: Hold if glucose less than 130 mg/dl Discontinued (DME) pen needle, diabetic [BD Ultra-Fine Lorin Pen Needle] 32 gauge x 5/32 needle See Rx Instructions .ROUTE .MEDSUPPLY Rx Instructions: As directed potassium chloride 20 mEq tablet,ER particles/crystals 40 meq PO DAILY insulin glargine [Lantus Solostar U-100 Insulin] 100 unit/mL (3 mL) insulin pen 35 unit SUBCUT BID Rx Instructions: Hold if glucose less than 130 mg/dl Referrals / Follow Up: Christiano Elise MD [Primary Care Provider] - 07/22/24 10:00 am (This appt on 07/22 is a hospital follow-up appt. You also have an appt w/Dr Elise Sep 16 @ 9:20 AM to get established as a new patient. ) Elise Raymond BELL PERSON, BELL PERSON-C [Non-Staff] - 09/11/24 2:45 pm (This appt is @ the [facility] building Address: [address] [place] [address] Phone #: [phone] ) Disposition Disposition (needs filled in before D/C Order can be placed): Home, Self Care Charges/Coding Visit Charges Inpatient E&M: 68886 Disch Hosp >30min
[2024-07-10 14:37] VITALS: BP 109/69; PULSE 95; RESP 16; TEMP 36.5; O2SAT 98
== END 2024-07-10 16:55 | disposition home or self-care (01) | DRG 720 ==
LOC: ED 18:56 → ICU 20:32
PROVIDERS: Admitting Provider Internal Medicine; Emergency Provider Emergency Medicine; PCP Family Medicine; Visit Provider Internal Medicine
DX: A41.9 Sepsis, unspecified organism (principal); G93.41 Metabolic encephalopathy; E43 Unspecified severe protein-calorie malnutrition; E10.10 Type 1 diabetes mellitus with ketoacidosis without coma; A04.71 Enterocolitis due to Clostridium difficile, recurrent; N17.9 Acute kidney failure, unspecified; E10.43 Type 1 diabetes mellitus with diabetic autonomic (poly)neuropathy; D63.8 Anemia in other chronic diseases classified elsewhere; K31.84 Gastroparesis; Z79.4 Long term (current) use of insulin; Z86.718 Personal history of other venous thrombosis and embolism; Z86.711 Personal history of pulmonary embolism; Z79.01 Long term (current) use of anticoagulants; Z91.199 Patient's noncompliance with other medical treatment and regimen due to unspecified reason; Z68.24 Body mass index [BMI] 24.0-24.9, adult
CPT/HCPCS: 36600; 71045; 80048; 80053; 80076; 80307; 81001; 82009; 82803; 82947; 82962; 83605; 83735; 84100; 84443; 85025; 85027; 87631; 93005; 94668; 94762; 97802; 99285; J7030; J7050; J7120; A4216; J2405; J7799

== ENCOUNTER 2024-07-15 15:28 | Inpatient (IN) | payer MEDICAID, SELFPAY ==
[2024-07-15] VITALS (23 sets, daily range): BP systolic 55–128; BP diastolic 40–85; PULSE 48–95; RESP 12–26; TEMP 26.1–31.4; O2SAT 100; BMI 27.6; BMI 24.7
--- NOTE | 2024-07-15 15:33 | EX.ED.DYSGE1 ---
HPI History of Present Illness Chief Complaint: Unresponsive [facility] Medical History History of diabetes mellitus Anticoagulant long-term use Anemia due to chronic illness Hettinger grade D esophagitis Minerva esophagitis Gastroparesis Recurrent pulmonary embolism AP window (aortopulmonary window) Anxiety Depression DVT (deep venous thrombosis) Hypokalemia Noncompliance with diabetes treatment History of medication noncompliance Severe protein-calorie malnutrition Kidney disease Hypokalemia Non-smoker Asthma Psychosocial problem femur surgery Diabetes mellitus type 1 GERD (gastroesophageal reflux disease) Home Medications ?Medication ?Instructions ?Recorded ?Last Taken ?Type insulin lispro 100 unit/mL See Protocol subcut ACHS DIABETES 07/24/22 10/05/23 History subcutaneous pen (Humalog KwikPen (U-100) Insulin) blood sugar diagnostic (OneTouch 02/27/23 Unknown History Verio test strips) flash glucose sensor (FreeStyle 02/27/23 Unknown History Niru 14 Day Sensor kit) insulin glargine-yfgn 100 unit/mL 35 unit (0.35 mL) subcut BID #10 07/10/24 Unknown Rx (3 mL) subcutaneous pen pens pen needle, diabetic 31 gauge x #100 ea 07/10/24 Unknown Rx 1/3 Allergy/AdvReac Type Severity Reaction Status Date / Time vancomycin Allergy local Verified 07/15/24 15:38 rash/hives to IV site Family History Father Polysubstance overdose Patient father young secondary to OD. Mother Iron deficiency anemia Other Asthma CVA (cerebral vascular accident) Diabetes Hypertension Thyroid disorder Surgical History H/O right knee surgery History of surgery on extremity Hx of knee surgery Social History housing: other details: Lives with his grandmother, aunt and mother. Smoking Status: Never smoker alcohol intake: current alcohol intake frequency: a few times a month substance use type: does not use EXAM Physical Exam Const Vital Signs: 07/15/24 15:30 07/15/24 15:35 07/15/24 15:37 Temperature 79 F L Temperature Source Temporal Pulse Rate 52 L Respiratory Rate 16 Respiratory Effort Respiratory Depth Respiratory Pattern Normal Blood Pressure 80/40 L Blood Pressure Mean 53 Blood Pressure Source Blood Pressure Position Blood Pressure Location Pulse Ox 100 Oxygen Delivery Method Room Air Fraction of Inspired Oxygen (FIO2) 07/15/24 16:04 07/15/24 16:04 07/15/24 16:26 Temperature 80.7 F L Temperature Source Core Pulse Rate 55 L 55 L Respiratory Rate 18 22 H Respiratory Effort Non-Labored Respiratory Depth Shallow Respiratory Pattern Normal Bradypnea Blood Pressure 82/61 L Blood Pressure Mean 68 Blood Pressure Source Blood Pressure Position Blood Pressure Location Pulse Ox 100 100 Oxygen Delivery Method Mechanical Ventilator Fraction of Inspired Oxygen (FIO2) 50 07/15/24 16:30 07/15/24 16:42 07/15/24 16:52 Temperature 81.2 F L Temperature Source Core Pulse Rate 49 L 48 L 61 Respiratory Rate 22 H 22 H 24 H Respiratory Effort Respiratory Depth Respiratory Pattern Normal Blood Pressure 68/41 L 55/45 L Blood Pressure Mean 50 48 Blood Pressure Source Monitor Blood Pressure Position Supine Blood Pressure Location Left Arm Pulse Ox 100 100 100 Oxygen Delivery Method Mechanical Ventilator Mechanical Ventilator Fraction of Inspired Oxygen (FIO2) 30 07/15/24 17:00 07/15/24 17:30 07/15/24 18:00 Temperature 83.0 F L 83.7 F L Temperature Source Core Core Pulse Rate 66 70 68 Respiratory Rate 24 H 24 H 24 H Respiratory Effort Respiratory Depth Respiratory Pattern Blood Pressure 116/75 123/85 H 113/78 Blood Pressure Mean 88 97 89 Blood Pressure Source Blood Pressure Position Blood Pressure Location Pulse Ox 100 100 100 Oxygen Delivery Method Mechanical Ventilator Room Air Mechanical Ventilator Fraction of Inspired Oxygen (FIO2) 07/15/24 18:28 07/15/24 18:30 07/15/24 19:00 Temperature 84.4 F L 85.1 F L Temperature Source Core Core Pulse Rate 57 L 60 70 Respiratory Rate 24 H 24 H 24 H Respiratory Effort Respiratory Depth Respiratory Pattern Blood Pressure 76/45 L 78/46 L 115/82 H Blood Pressure Mean 55 56 93 Blood Pressure Source Monitor Blood Pressure Position Supine Blood Pressure Location Left Arm Pulse Ox 100 100 100 Oxygen Delivery Method Mechanical Ventilator Mechanical Ventilator Fraction of Inspired Oxygen (FIO2) 07/15/24 19:05 07/15/24 19:30 07/15/24 19:54 Temperature 85.5 F L 86.1 F L Temperature Source Core Pulse Rate 71 71 74 Respiratory Rate 24 H 24 H 24 H Respiratory Effort Respiratory Depth Respiratory Pattern Normal Blood Pressure 118/80 123/76 H Blood Pressure Mean 92 91 Blood Pressure Source Blood Pressure Position Blood Pressure Location Pulse Ox 100 100 100 Oxygen Delivery Method Mechanical Ventilator Fraction of Inspired Oxygen (FIO2) 07/15/24 20:00 Temperature 86.1 F L Temperature Source Core Pulse Rate 74 Respiratory Rate 24 H Respiratory Effort Respiratory Depth Respiratory Pattern Blood Pressure 121/74 H Blood Pressure Mean 89 Blood Pressure Source Blood Pressure Position Blood Pressure Location Pulse Ox 100 Oxygen Delivery Method Room Air Fraction of Inspired Oxygen (FIO2) [facility] MDM Narrative Medical decision making narrative: HISTORY OF PRESENT ILLNESS: 23-year-old male presents with being unresponsive. Per EMS patient was found next to his AC unit. He was very cold initially was hypotensive and bradycardic. They brought him in for further evaluation. Patient cannot provide elaborate history secondary to altered mental status. REVIEW OF SYSTEMS: Could not obtain reliable review of systems secondary to patient's mental status PHYSICAL EXAM: Nursing triage notes reviewed, Vital signs reviewed Constitutional: please see mdm HENT: Eyes: Dilated pupils, sluggishly reactive Neck: No stridor, no JVD, full neck ROM Lungs: Clear to auscultation, No wheezing or rales. No increased work of breathing, no conversational dyspnea, no accessory muscle use, no nasal flaring. No respiratory distress noted Heart: Regular rate and rhythm, No murmurs, No rubs and No gallops, 2+ distal pulses (radial, femoral, posterior tibial) in all extremities Abdomen: Soft, there is no tenderness, rigidity, rebound or guarding, no obvious peritoneal signs, no palpable pulsatile abdominal masses, no auscultated abdominal bruit : No CVAT Extremities: No edema Neuro: No focal neurological deficits, cranial nerves II through XII intact, 5/5 strength in all extremities. Intact sensation to light touch in all extremities, 2+ reflexes bilateral patella tendons. Normal gait. No ataxia. Skin: No rash or lesions noted MEDICAL DECISION MAKING: Chief Complaint: Hyperglycemia External records reviewed: Frequent ED utilizer, history of DKA Factors affecting care: Type 1 diabetes, DKA, Social determinants of health: none History obtained from others: EMS Consults: Hospitalist, critical care MDM Narrative: The patient was initially hypotensive, bradycardic and hypothermic. Patient protecting his airway so was intubated immediately. Please see below procedure note. Patient intubation was complicated by hypotension, bradycardia and hypothermia. To mitigate risk of intubation and parent to patient in cardiac arrest I resuscitate the patient for intubating. We mixed 1 mg of code concentration epinephrine into 9 cc of sterile saline. To create 10 mcg/cc epinephrine push doses. This was given to the patient prior to intubation. He is also treated with bicarb given concern for profound acidosis given history of DKA and altered mental status. He was sedated with 30 mg etomidate and paralyzed with 150 mg rocuronium. Intubation was successful. After intubation patient continued to be hypotensive start epinephrine drip. A right femoral vein central line was placed. There was bleeding after central line procedure which was mitigated by Surgicel and pressure. I considered the following differential diagnosis: ICH, acidosis, electro disturbance, uremia, insulin overdose, toxic ingestion, sepsis, myxedema coma ALL IMAGES (IF OBTAINED) HAVE BEEN PERSONALLY REVIEWED AND INTERPRETED BY MYSELF. EKG with normal sinus rhythm, normal axis, prolonged QRS and QTc interval, no obvious STEMI, no peaked T waves CBC with marked leukocytosis, no anemia, no thrombocytopenia ABG with profound metabolic acidosis with a pH of 6.8, bicarb of 4.1 suggestive of severe metabolic acidosis likely secondary to DKA given blood sugar was greater than 800 BMP without significant electrolyte abnormalities, noted severe metabolic acidosis, acute kidney injury, and hyperglycemia the glucose 834 Lactate elevated. Given DKA, hypotension, hypothermia I suspect is related to hypotension rather than sepsis. There is no obvious signs of infection on exam labs images. No indication for blood cultures or broad-spectrum antibiotics at this time. Serum lactate elevated consistent with endorgan hypoperfusion High-sensitivity troponin is negative, no evidence of myocardial ischemia TSH, free T4 within normal limits, free T3 shows evidence of hyperthyroidism likely reactive to acute illness no signs of myxedema coma Urinalysis shows ketonuria consistent with DKA Urine tox screen is negative Serum acetone is large Serum alcohol is negative CT scan of the head is pnegative Chest x-ray shows evidence of pneumonia but shows appropriate ETT placement and appropriate orogastric tube placement The synthesis of the patient's history, physical exam, labs and imaging suggest likely DKA and resultant altered mental status was led to profound hypothermia. Given need for multiple continuous drips including epinephrine, insulin, fluids, patient require admission to the intensive care unit. The procedure was performed by myself. Indications: Airway protection, expected clinical course Procedure Description: Patient was preoxygenated with Ambu bag, used at 8.0 ET tube, use video laryngoscopy, had a grade 1 view of the cords, intubated on first attempt with no immediate complications. ET tube was 24 at the lips. Post-Procedure Assessment: Tracheal intubation was confirmed with breath sounds auscultated equally bilaterally; appropriate color change with end tidal CO2 detector and waveform capnography. The patient tolerated the procedure well with no immediate complications. Procedure: Central line placement. Indication: Venous Access Consent: verbal. Risks of bleeding, infection, and pneumothorax were explained. A time out was completed. Maximal sterile barrier technique was used including cap, gown, sterile gloves, large sheet, hand washing and chlorhexidine prep. Anesthesia: The area anesthetized with 1% lidocaine. Procedure: The right femoral vein vein was punctured with a 19 gauge finder needle, then a wire introducer was placed, a 7 Croatian triple lumen catheter was placed using Seldinger technique. Bleeding was noted after placement of central line this was treated with Surgicel and pressure which led to hemostasis. Blood return was low pressure and non-pulsatile dark blood. Line secured in place with suture, and a sterile bio-occlusive dressing was applied. Patient tolerated procedure well. The procedure was performed by Collin Qureshi DO The patient and/or family, caregivers express understanding. The patient and/or family, caregivers agrees with the plan. Shared decision making: I will have a discussion with the patient and or visitors regarding risk/benefits of further testing or admission. They will be made aware of of the risk/benefits inherent in this decision they will be given the opportunity to voice understanding. Total critical care time today provided was at least 0 minutes. This excludes separately billable procedures. Critical care time (if documented) is secondary to the patient having high probability of clinically significant/life threatening deterioration in the patient's condition which required my urgent intervention. Impression: 1. Altered mental status 2. DKA 3. Metabolic acidosis Dispo: Admit to ICU This note was generated with [employer] dictation software. It may contain incorrect words, spelling, and punctuation that were not noted in review of the chart prior to signing. Lab Data Labs: Laboratory Results - last 24 hr 07/15/24 07/15/2407/15/24 15:43 15:44 15:44 WBC 29.2 H RBC 5.37 Hgb 14.3 Hct 46.7 MCV 87.0 MCH 26.6 L MCHC 30.6 L RDW Std Deviation 42.9 RDW Coeff of Rabia 14.1 Plt Count 510 H MPV 10.4 Immature Gran % (Auto) RAND SEWER Neut % (Auto) [place] SE[place] Lymph % (Auto) R[place] SEWER Frederick % (Auto) R[place] SEWER Eos % (Auto) R[place] SEWER Baso % (Auto) RAND SEWER Absolute Neuts (auto) 17.8 H Absolute Lymphs (auto) 8.52 H Total Counted 100 Neutrophils % (Manual) 48 Band Neutrophils % 2 Lymphocytes % (Manual) 40 Monocytes % (Manual) 10 Nucleated RBC % 0.1 Diff Path Review May foll Sodium 132 L Cancelled Potassium 5.8 H Chloride Carbon Dioxide Anion Gap BUN Creatinine Estim Creat Clear Calc Est GFR (MDRD) Af Amer Est GFR (MDRD) Non-Af BUN/Creatinine Ratio Glucose Lactic Acid Calcium Phosphorus Magnesium Troponin I High Sens TSH Free T4 Free T3 pg/dL Urine Color Urine Clarity Urine pH Ur Specific Elbert Urine Protein Urine Glucose (UA) Urine Ketones Urine Occult Blood Urine Nitrite Urine Bilirubin Urine Urobilinogen Ur Leukocyte Esterase Urine RBC Urine WBC Ur Squamous Epith Cells Urine Bacteria Urine Mucus Urine Opiates Screen Urine Methadone Screen Ur Barbiturates Screen Ur Phencyclidine Scrn Ur Amphetamines Screen MDMA (Ecstasy) Screen U Benzodiazepines Scrn Urine Cocaine Screen U Cannabinoids Screen Ur Drug Screen Comment Ethyl Alcohol Acetone Level POC Glucose 07/15/24 07/15/24 07/15/24 15:44 15:44 15:44 WBC RBC Hgb Hct MCV MCH MCHC RDW Std Deviation RDW Coeff of Rabia Plt Count MPV Immature Gran % (Auto) Neut % (Auto) Lymph % (Auto) Frederick % (Auto) Eos % (Auto) Baso % (Auto) Absolute Neuts (auto) Absolute Lymphs (auto) Total Counted Neutrophils % (Manual) Band Neutrophils % Lymphocytes % (Manual) Monocytes % (Manual) Nucleated RBC % Diff Path Review Sodium Potassium Cancelled Chloride 95 L Cancelled Carbon Dioxide 3.0 L* Cancelled Anion Gap 34 H BUN Creatinine Estim Creat Clear Calc Est GFR (MDRD) Af Amer Est GFR (MDRD) Non-Af BUN/Creatinine Ratio Glucose Lactic Acid Calcium Phosphorus Magnesium Troponin I High Sens TSH Free T4 Free T3 pg/dL Urine Color Urine Clarity Urine pH Ur Specific Elbert Urine Protein Urine Glucose (UA) Urine Ketones Urine Occult Blood Urine Nitrite Urine Bilirubin Urine Urobilinogen Ur Leukocyte Esterase Urine RBC Urine WBC Ur Squamous Epith Cells Urine Bacteria Urine Mucus Urine Opiates Screen Urine Methadone Screen Ur Barbiturates Screen Ur Phencyclidine Scrn Ur Amphetamines Screen MDMA (Ecstasy) Screen U Benzodiazepines Scrn Urine Cocaine Screen U Cannabinoids Screen Ur Drug Screen Comment Ethyl Alcohol Acetone Level POC Glucose 07/15/24 07/15/24 07/15/24 15:44 15:44 15:44 WBC RBC Hgb Hct MCV MCH MCHC RDW Std Deviation RDW Coeff of Rabia Plt Count MPV Immature Gran % (Auto) Neut % (Auto) Lymph % (Auto) Frederick % (Auto) Eos % (Auto) Baso % (Auto) Absolute Neuts (auto) Absolute Lymphs (auto) Total Counted Neutrophils % (Manual) Band Neutrophils % Lymphocytes % (Manual) Monocytes % (Manual) Nucleated RBC % Diff Path Review Sodium Potassium Chloride Carbon Dioxide Anion Gap Cancelled BUN 24 H Cancelled Creatinine 1.71 H Cancelled Estim Creat Clear Calc 75.93 Est GFR (MDRD) Af Amer Est GFR (MDRD) Non-Af BUN/Creatinine Ratio Glucose Lactic Acid Calcium Phosphorus Magnesium Troponin I High Sens TSH Free T4 Free T3 pg/dL Urine Color Urine Clarity Urine pH Ur Specific Elbert Urine Protein Urine Glucose (UA) Urine Ketones Urine Occult Blood Urine Nitrite Urine Bilirubin Urine Urobilinogen Ur Leukocyte Esterase Urine RBC Urine WBC Ur Squamous Epith Cells Urine Bacteria Urine Mucus Urine Opiates Screen Urine Methadone Screen Ur Barbiturates Screen Ur Phencyclidine Scrn Ur Amphetamines Screen MDMA (Ecstasy) Screen U Benzodiazepines Scrn Urine Cocaine Screen U Cannabinoids Screen Ur Drug Screen Comment Ethyl Alcohol Acetone Level POC Glucose 07/15/24 07/15/24 07/15/24 15:44 15:44 15:44 WBC RBC Hgb Hct MCV MCH MCHC RDW Std Deviation RDW Coeff of Rabia Plt Count MPV Immature Gran % (Auto) Neut % (Auto) Lymph % (Auto) Frederick % (Auto) Eos % (Auto) Baso % (Auto) Absolute Neuts (auto) Absolute Lymphs (auto) Total Counted Neutrophils % (Manual) Band Neutrophils % Lymphocytes % (Manual) Monocytes % (Manual) Nucleated RBC % Diff Path Review Sodium Potassium Chloride Carbon Dioxide Anion Gap BUN Creatinine Estim Creat Clear Calc 76.83 Est GFR (MDRD) Af Amer 64 Cancelled Est GFR (MDRD) Non-Af 53 L Cancelled BUN/Creatinine Ratio 14.0 Glucose Lactic Acid Calcium Phosphorus Magnesium Troponin I High Sens TSH Free T4 Free T3 pg/dL Urine Color Urine Clarity Urine pH Ur Specific Elbert Urine Protein Urine Glucose (UA) Urine Ketones Urine Occult Blood Urine Nitrite Urine Bilirubin Urine Urobilinogen Ur Leukocyte Esterase Urine RBC Urine WBC Ur Squamous Epith Cells Urine Bacteria Urine Mucus Urine Opiates Screen Urine Methadone Screen Ur Barbiturates Screen Ur Phencyclidine Scrn Ur Amphetamines Screen MDMA (Ecstasy) Screen U Benzodiazepines Scrn Urine Cocaine Screen U Cannabinoids Screen Ur Drug Screen Comment Ethyl Alcohol Acetone Level POC Glucose 07/15/24 07/15/24 07/15/24 15:44 15:44 15:44 WBC RBC Hgb Hct MCV MCH MCHC RDW Std Deviation RDW Coeff of Rabia Plt Count MPV Immature Gran % (Auto) Neut % (Auto) Lymph % (Auto) Frederick % (Auto) Eos % (Auto) Baso % (Auto) Absolute Neuts (auto) Absolute Lymphs (auto) Total Counted Neutrophils % (Manual) Band Neutrophils % Lymphocytes % (Manual) Monocytes % (Manual) Nucleated RBC % Diff Path Review Sodium Potassium Chloride Carbon Dioxide Anion Gap BUN Creatinine Estim Creat Clear Calc Est GFR (MDRD) Af Amer Est GFR (MDRD) Non-Af BUN/Creatinine Ratio Cancelled Glucose 849 H* Cancelled Lactic Acid Calcium 9.4 Cancelled Phosphorus 7.9 H Magnesium 3.0 H Troponin I High Sens 5 TSH 0.546 Free T4 1.10 Free T3 pg/dL 1.6 L Urine Color Urine Clarity Urine pH Ur Specific Elbert Urine Protein Urine Glucose (UA) Urine Ketones Urine Occult Blood Urine Nitrite Urine Bilirubin Urine Urobilinogen Ur Leukocyte Esterase Urine RBC Urine WBC Ur Squamous Epith Cells Urine Bacteria Urine Mucus Urine Opiates Screen Urine Methadone Screen Ur Barbiturates Screen Ur Phencyclidine Scrn Ur Amphetamines Screen MDMA (Ecstasy) Screen U Benzodiazepines Scrn Urine Cocaine Screen U Cannabinoids Screen Ur Drug Screen Comment Ethyl Alcohol Acetone Level POC Glucose 07/15/24 07/15/24 07/15/24 15:46 15:50 15:58 WBC RBC Hgb Hct MCV MCH MCHC RDW Std Deviation RDW Coeff of Rabia Plt Count MPV Immature Gran % (Auto) Neut % (Auto) Lymph % (Auto) Frederick % (Auto) Eos % (Auto) Baso % (Auto) Absolute Neuts (auto) Absolute Lymphs (auto) Total Counted Neutrophils % (Manual) Band Neutrophils % Lymphocytes % (Manual) Monocytes % (Manual) Nucleated RBC % Diff Path Review Sodium Potassium Chloride Carbon Dioxide Anion Gap BUN Creatinine Estim Creat Clear Calc Est GFR (MDRD) Af Amer Est GFR (MDRD) Non-Af BUN/Creatinine Ratio Glucose Lactic Acid 4.6 H* Calcium Phosphorus Magnesium Troponin I High Sens TSH Free T4 Free T3 pg/dL Urine Color Straw Urine Clarity Clear Urine pH 6.0 Ur Specific Elbert 1.020 Urine Protein 30 H Urine Glucose (UA) 1000 H Urine Ketones 150 A* Urine Occult Blood 25 H Urine Nitrite Negative Urine Bilirubin Negative Urine Urobilinogen Normal Ur Leukocyte Esterase Negative Urine RBC 0 SEEN Urine WBC 0 SEEN Ur Squamous Epith Cells 0 SEEN Urine Bacteria 1+ Urine Mucus 0 SEEN Urine Opiates Screen NEGATIVE Urine Methadone Screen NEGATIVE Ur Barbiturates Screen NEGATIVE Ur Phencyclidine Scrn NEGATIVE Ur Amphetamines Screen NEGATIVE MDMA (Ecstasy) Screen NEGATIVE U Benzodiazepines Scrn NEGATIVE Urine Cocaine Screen NEGATIVE U Cannabinoids Screen NEGATIVE Ur Drug Screen Comment Ethyl Alcohol Acetone Level LARGE H POC Glucose 07/15/24 07/15/24 07/15/24 17:17 18:00 18:10 WBC RBC Hgb Hct MCV MCH MCHC RDW Std Deviation RDW Coeff of Rabia Plt Count MPV Immature Gran % (Auto) Neut % (Auto) Lymph % (Auto) Frederick % (Auto) Eos % (Auto) Baso % (Auto) Absolute Neuts (auto) Absolute Lymphs (auto) Total Counted Neutrophils % (Manual) Band Neutrophils % Lymphocytes % (Manual) Monocytes % (Manual) Nucleated RBC % Diff Path Review Sodium 136 Potassium 3.6 Chloride 98 Carbon Dioxide 5.0 L* Anion Gap 33 H BUN 29 H Creatinine 1.71 H Estim Creat Clear Calc 75.93 Est GFR (MDRD) Af Amer 64 Est GFR (MDRD) Non-Af 53 L BUN/Creatinine Ratio 17.0 Glucose 834 H* Lactic Acid Calcium 9.4 Phosphorus Magnesium Troponin I High Sens TSH Free T4 Free T3 pg/dL Urine Color Urine Clarity Urine pH Ur Specific Elbert Urine Protein Urine Glucose (UA) Urine Ketones Urine Occult Blood Urine Nitrite Urine Bilirubin Urine Urobilinogen Ur Leukocyte Esterase Urine RBC Urine WBC Ur Squamous Epith Cells Urine Bacteria Urine Mucus Urine Opiates Screen Urine Methadone Screen Ur Barbiturates Screen Ur Phencyclidine Scrn Ur Amphetamines Screen MDMA (Ecstasy) Screen U Benzodiazepines Scrn Urine Cocaine Screen U Cannabinoids Screen Ur Drug Screen Comment Ethyl Alcohol < 3.0 Acetone Level POC Glucose > 500 H* > 500 H* 07/15/24 19:24 WBC RBC Hgb Hct MCV MCH MCHC RDW Std Deviation RDW Coeff of Rabia Plt Count MPV Immature Gran % (Auto) Neut % (Auto) Lymph % (Auto) Frederick % (Auto) Eos % (Auto) Baso % (Auto) Absolute Neuts (auto) Absolute Lymphs (auto) Total Counted Neutrophils % (Manual) Band Neutrophils % Lymphocytes % (Manual) Monocytes % (Manual) Nucleated RBC % Diff Path Review Sodium Potassium Chloride Carbon Dioxide Anion Gap BUN Creatinine Estim Creat Clear Calc Est GFR (MDRD) Af Amer Est GFR (MDRD) Non-Af BUN/Creatinine Ratio Glucose Lactic Acid Calcium Phosphorus Magnesium Troponin I High Sens TSH Free T4 Free T3 pg/dL Urine Color Urine Clarity Urine pH Ur Specific Elbert Urine Protein Urine Glucose (UA) Urine Ketones Urine Occult Blood Urine Nitrite Urine Bilirubin Urine Urobilinogen Ur Leukocyte Esterase Urine RBC Urine WBC Ur Squamous Epith Cells Urine Bacteria Urine Mucus Urine Opiates Screen Urine Methadone Screen Ur Barbiturates Screen Ur Phencyclidine Scrn Ur Amphetamines Screen MDMA (Ecstasy) Screen U Benzodiazepines Scrn Urine Cocaine Screen U Cannabinoids Screen Ur Drug Screen Comment Ethyl Alcohol Acetone Level POC Glucose > 500 H* ABG Data ABG results: ABG 07/15/24 16:35 Specimen Type ART Sample Site L Radial pH 6.80 L* Bicarbonate Actual 4.1 L Total CO2 < 5 Base Excess < -30 L O2 Saturation 100 H O2 % 50.0 ABG pCO2 26.6 L ABG pO2 358 H* Hector Test Positive Respiration Rate 22 O2 Delivery Device Adult Vent Vent Mode AC Tidal Volume 450.0 POC PEEP 5 Crit Call To/Read Back Yes Blood Gas Notified Nancy reynoso Blood Gas Notified Time 16:37:06 Radiography Diagnostic Testing: Clinical Impression(s) from Imaging Studies Brain CT 07/15/24 15:43 IMPRESSION: No acute intracranial abnormality. Electronically Signed: Jose Alberto Elkins MD at 19:14 EDT , Chest X-Ray 07/15/24 16:45 IMPRESSION: Interval placement of endotracheal tube with tip 2.5 cm above the judi. Interval placement of NG tube with tip in stomach. Otherwise, no change from prior study. Electronically Signed: Jose Alberto Elkins MD at 17:32 EDT , Discharge Plan Disposition Disposition: Acute Care Hospital [facility] Discharge Date/Time: 07/15/24 22:07
--- NOTE | 2024-07-15 15:43 | CT_ITS ---
EXAMINATION : Head CT w/out contrast HISTORY : AMS COMPARISON : 01/10/2023. TECHNIQUE : Multiple contiguous axial images were obtained from the skull base to the vertex without intravenous contrast. A radiation dose optimization technique was used for this scan. FINDINGS : The ventricles and sulci are normal in size. There is no evidence for acute intracranial hemorrhage, mass effect, or midline shift. There is no extra-axial fluid collection. There is normal kruse-white differentiation, without CT evidence of acute ischemia or infarct. The skull base and calvarium are unremarkable. The orbits are unremarkable. The paranasal sinuses are clear. The mastoid air cells are well-aerated. The soft tissues are unremarkable. CT/Brain/Head without Contrast IMPRESSION: No acute intracranial abnormality. Electronically Signed: Jose Alberto Elkins MD at 19:14 EDT ,
--- NOTE | 2024-07-15 15:43 | EKG12_ITS ---
Test Reason : DKA Blood Pressure : / mmHG Vent. Rate : 059 BPM Atrial Rate : 000 BPM P-R Int : 000 ms QRS Dur : 120 ms QT Int : 546 ms P-R-T Axes : 000 073 203 degrees QTc Int : 540 ms Normal sinus rhythm Non-specific intra-ventricular conduction delay Nonspecific ST and T wave abnormality Abnormal ECG Confirmed by YANE CASTILLO, ROXANNE ([id number]), technical writer and editor AYESHA VALLE ([id number]) on 07/17/2024 1:48:00 PM Referred By: CHARLES Confirmed By:ROXANNE CHE MD
[2024-07-15 15:57] LABS: Mucous, Urine 0 SEEN /hpf (<or=2+); Red Blood Cells-Urine 0 SEEN /hpf (0-5); Squamous Epithelial Cells - UA 0 SEEN /hpf (0-5); White Blood Cells 0 SEEN /hpf (0-5)
[2024-07-15] MEDS: Etomidate 20 MG/10 ML Vial 30 MG IV (15:59)
[2024-07-15] MEDS: Sodium Bicarbonate 8.4% 50 ML Syringe 50 MEQ IV ×2 (16:00→16:15)
[2024-07-15] MEDS: NORMAL SALINE 0.9% IV (16:03)
[2024-07-15] MEDS: Rocuronium Bromide 50 MG/5 ML Vial 150 MG IV (16:03)
[2024-07-15] MEDS: EPINEPHRINE IV (16:03)
[2024-07-15 16:04] LABS: Absolute Lymphocyte Count 8.52 X10^3/uL (0.83-4.51); Absolute Neutrophil Count 17.8 X10^3/uL (2.0-7.7); Basophil# 0.21 X10^3/uL; Eosinophil# 0.06 X10^3/uL; Hematocrit 46.7 % (40-54); Hemoglobin 14.3 g/dL (13.0-16.5); Lymphocyte # 8.52 X10^3/ul (0.83-4.51); Mean Corp Hgb Conc 30.6 g/dL (32-36); Mean Corpuscular Hgb 26.6 pg (27.0-32.0); Mean Platelet Vol. 10.4 fl (6.2-12.0); NRBC Flagged by Analyzer 0.1 % (0-5); Neutrophil # 17.84 X10^3/uL (2.7-7.7); POSITIVE DIFFERENTIAL YES; POSITIVE MORPHOLOGY YES; Platelet Count 510 K/mm3 (150-450); RBC Distribution Width CV 14.1 % (11.6-14.6); RBC Distribution Width SD 42.9 fl (35.1-43.9); Red Blood Count 5.37 M/mm3 (4.6-6.2); White Blood Count 29.2 K/mm3 (4.4-11.0)
[2024-07-15 16:06] LABS: Color, Urine Straw (Yellow); Glucose, Dipstick 1000 mg/dl (Normal); Leukocyte Esterase-Dipstick Negative /ul (Negative); Nitrite-Dipstick Negative (Negative); Occult Blood-Urine 25 /ul (Negative); Protein-Dipstick 30 mg/dl (Negative); Urine Bilirubin Dipstick Negative (Negative); Urine Clarity Clear (Clear); Urine Urobilinogen Normal (Normal)
[2024-07-15] MEDS: Lactated Ringers 1,000 ML 999 ML IV ×2 (16:09→21:03)
[2024-07-15 16:13] LABS: Differential Indicated SCAN CRITERIA MET
[2024-07-15 16:15] LABS: Ketone-Dipstick 150 mg/dl (Negative)
[2024-07-15 16:17] LABS: Bacteria 1+ /hpf (None Seen)
[2024-07-15 16:20] LABS: Amphetamine Urine VISTA NEGATIVE (<1000 ng/mL); Barbiturate Urine VISTA NEGATIVE (< 200 ng/mL); Benzodiazepine Urine VISTA NEGATIVE (< 200 ng/mL); Cocaine Urine VISTA NEGATIVE (< 300 ng/mL); Ecstacy Urine VISTA NEGATIVE (< 500 ng/mL); Methadone Urine VISTA NEGATIVE (< 300 ng/mL); PCP Urine VISTA NEGATIVE (< 25 ng/mL); THC Urine VISTA NEGATIVE (< 50 ng/mL); Vista UDS pH Range 4
[2024-07-15 16:32] LABS: Anion Gap 34 (5-15); BUN 24 mg/dL (7-18); Calcium,Total 9.4 mg/dL (8.5-10.1); Chloride 95 mmol/L (98-107); Creatinine, Serum 1.71 mg/dL (0.70-1.30); EST Glomerular Filtration Rate 53 mL/min (>60); Est Glom Filt Rate - Afr Amer 64 mL/min (>60); Estimated Creatinine Clearance 75.93 ml/min; Glucose 849 mg/dL (74-106); Phosphorus 7.9 mg/dL (2.5-4.9); Potassium 5.8 mmol/L (3.5-5.1); Sodium Level 132 mmol/L (136-145); Troponin-I HS 5 pg/mL (3.0-78.0)
[2024-07-15] MEDS: Calcium Gluconate 1 GM/10 ML Vial IVP (16:32)
[2024-07-15 16:39] LABS: Allen Test Positive; Base Excess < -30 mmol/L (-2 to +2); Bicarbonate 4.1 mmol/L (22-26); Blood Gas Specimen Type ART; Mode AC; O2 Delivery Device Adult Vent; PEEP 5; PO2 358 mmHG (75-100); RR 22; SITE L Radial; SO2 100 % (95-99); Total Carbon Dioxide < 5 mmol/L; pCO2 26.6 mmHg (35-45)
[2024-07-15 16:42] LABS: Free T3 1.6 pg/mL (2.18-3.98); Thyroid Stim Hormone (TSH) 0.546 uIU/mL (0.358-3.740)
[2024-07-15] MEDS: Epinephrine (1 mg/ml) 1 MG in 0.9% Normal Saline (250mL Bag) 250 ML 143.2 MG CONT INF ×4 (16:42→22:45)
--- NOTE | 2024-07-15 16:45 | RAD_ITS ---
INDICATION: AMS. ET TUIBE AND OG PLACEMENT EXAMINATION/TECHNIQUE: X-RAY - XR Chest 1 View COMPARISON: 07/08/2024. FINDINGS: The lungs are unchanged. The cardiomediastinal silhouette is stable. Interval placement of endotracheal tube with tip 2.5 cm above the judi. Interval placement of NG tube with tip in stomach. No pleural effusion or pneumothorax. The osseous structures are unchanged. RAD/Chest 1 View (Portable) IMPRESSION: Interval placement of endotracheal tube with tip 2.5 cm above the judi. Interval placement of NG tube with tip in stomach. Otherwise, no change from prior study. Electronically Signed: Jose Alberto Elkins MD at 17:32 EDT ,
--- NOTE | 2024-07-15 16:54 | ED.RN ---
critical lactic 4.[address] Qureshi
[2024-07-15 16:55] LABS: Lactic Acid 4.6 mmol/L (0.4-1.9)
[2024-07-15 17:06] LABS: Lymphocyte 40 % (19-41); Monocyte 10 % (0-10); Neutrophil-Band 2 % (0-5); Neutrophil-Segmented 48 % (47-70); Total Cells Counted 100 (MANUAL DIFF)
[2024-07-15 17:07] LABS: Scan Smear per Review Criteria MANUAL DIFF
[2024-07-15] MEDS: fentaNYL drip 100 ML 5 MCG CONT INF (17:07)
[2024-07-15 17:36] LABS: Bedside Glucose > 500 mg/dL (74-106)
[2024-07-15 18:27] LABS: Bedside Glucose > 500 mg/dL (74-106)
[2024-07-15 18:35] LABS: Alcohol, Blood (Medical)-Serum < 3.0 mg/dL
[2024-07-15 18:39] LABS: Anion Gap 33 (5-15); BUN 29 mg/dL (7-18); Calcium,Total 9.4 mg/dL (8.5-10.1); Chloride 98 mmol/L (98-107); Creatinine, Serum 1.71 mg/dL (0.70-1.30); EST Glomerular Filtration Rate 53 mL/min (>60); Est Glom Filt Rate - Afr Amer 64 mL/min (>60); Estimated Creatinine Clearance 75.93 ml/min; Glucose 834 mg/dL (74-106); Potassium 3.6 mmol/L (3.5-5.1); Sodium Level 136 mmol/L (136-145)
[2024-07-15] MEDS: Insulin Lispro 100 UNIT in 0.9% Normal Saline (100mL Bag) 99 ML 9.5 UNIT CONT INF (18:42)
[2024-07-15] MEDS: Sodium Bicarbonate 50 MEQ in Dextrose 5%-Water (1000mL Bag) 1,000 ML 100 MEQ IV (18:42)
[2024-07-15 19:43] LABS: Bedside Glucose > 500 mg/dL (74-106)
--- NOTE | 2024-07-15 20:01 | PCM.HP.STD ---
HPI - General General Date of Admission: 07/15/24 Date of Service: 07/15/24 Chief Complaint: Hypothermic, Altered, Hypotensive, Bradycardic. HPI Narrative The patient is a 23 y/o M w/ PMHx: Hx VTE (DVT, PE on xarelto), Uncontrolled Diabetes mellitus type I with frequent DKA presentations noncomplaint with his insulin and diet, Chronic severe protein calorie malnutrition, Hx 2021 pericarditis/pericardial infection (Treated at [facility], MSSA infection treated with abx therapy), History Stage II L buttock pressure, Hx dysphagia secondary to severe LA grade D erosive esophagitis with candidiasis, Chronic anemia/Fe deficiency anemia, Anxiety and Depression, GERD who presents to the [facility] ED on 07/15/2024 with history of being found unresponsive next to his AC unit noted to be very hypothermic, hypotensive and bradycardic upon initial evaluation prompting immediate transition to the ED for evaluation with notably altered mental status with recent discharge 07/10/2024 following admission and care of intractable nausea and emesis with DKA secondary to poorly controlled diabetes type 1 with electrolyte disturbances which resolved at the discharge time. Family notes that he has had persistent loose stools and he felt like this was possibly secondary to diarrhea. He reported abdominal cramping and had poor appetite per their report. Workup in the ED included initially T79 temporally, heart rate 52, BP 80/40, respiratory rate 16, 100% on room air eventually intubated with BP down to as low as 55/48, most recent vital signs core temp 85.1, heart rate 70, BP 115/82, respiratory rate 24, 100% mechanically intubated with last FiO2 noted 30%, CBC with WBC 29.2, hemoglobin 14.3, platelet 510 with left shift and lymphocytosis, ABG with pH 6.80, bicarb 4.1, O2 saturation 100%, pCO2 26.6, PaO2 358 on ventilator, initial CMP with sodium 132, potassium 5.8 noted to be moderately hemolyzed, chloride 95, carbon oxide 3, anion gap 34, BUN/creatinine 24/1.71, GFR 53, glucose 849, lactic acid 4.6, Phos 7.9, magnesium 3.0, troponin 5, TSH 0.546, free T41.10, free T31.6, urinalysis with specific remedy 1.20, protein 30, glucose of thousand, ketones of 50, occult blood 25 with no urine WBCs or RBCs with 1+ urine bacteria, UDS negative, ethyl alcohol less than 3, acetone large, chest x-ray with interval placement ET tube with tip 2.5 cm above the judi, interval placement NG tube with tip in the stomach, CT brain with no acute intracranial findings, EKG with SB without acute evidence of ischemia, blood culture x 2 pending for ED. In the ED patient ministered significant amps of sodium bicarb and eventually placed on a drip, insulin 10 unit IV administered with placement on insulin drip, potassium supplemented, eventually intubated with etomidate and rocuronium with initiation of fentanyl drip, calcium gluconate IV 1 g IV x 1 push with significant epinephrine administered and placed on drip. In the ED patient also had femoral central line placed per ED physician. [facility] Medical History History of diabetes mellitus Anticoagulant long-term use Anemia due to chronic illness [place] grade D esophagitis [place]a esophagitis Gastroparesis Recurrent pulmonary embolism AP window (aortopulmonary window) Anxiety Depression DVT (deep venous thrombosis) Hypokalemia Noncompliance with diabetes treatment History of medication noncompliance Severe protein-calorie malnutrition Kidney disease Hypokalemia Non-smoker Asthma Psychosocial problem femur surgery Diabetes mellitus type 1 GERD (gastroesophageal reflux disease) Home Medications ?Medication ?Instructions ?Recorded ?Last Taken ?Type insulin lispro 100 unit/mL See Protocol subcut ACHS DIABETES 07/24/22 10/05/23 History subcutaneous pen (Humalog KwikPen (U-100) Insulin) blood sugar diagnostic (OneTouch 02/27/23 Unknown History Verio test strips) flash glucose sensor (FreeStyle 02/27/23 Unknown History Niru 14 Day Sensor kit) insulin glargine-yfgn 100 unit/mL 35 unit (0.35 mL) subcut BID #10 07/10/24 Unknown Rx (3 mL) subcutaneous pen pens pen needle, diabetic 31 gauge x #100 ea 07/10/24 Unknown Rx 1/3 Allergy/AdvReac Type Severity Reaction Status Date / Time vancomycin Allergy local Verified 07/15/24 15:38 rash/hives to IV site Family History Father Polysubstance overdose Patient father young secondary to OD. Mother Iron deficiency anemia Other Asthma CVA (cerebral vascular accident) Diabetes Hypertension Thyroid disorder Surgical History H/O right knee surgery History of surgery on extremity Hx of knee surgery Social History housing: other details: Lives with his grandmother, aunt and mother. Smoking Status: Never smoker alcohol intake: current alcohol intake frequency: a few times a month substance use type: does not use ROS Review of Systems ROS Unobtainable: due to encephalopathy and due to endotracheal tube Vital Signs Vital Signs Vital Signs: 07/15/24 15:30 07/15/24 15:35 07/15/24 15:37 Temperature 79 F L Temperature Source Temporal Pulse Rate 52 L Respiratory Rate 16 Respiratory Effort Respiratory Depth Respiratory Pattern Normal Blood Pressure 80/40 L Blood Pressure Mean 53 Blood Pressure Source Blood Pressure Position Blood Pressure Location Pulse Ox 100 Oxygen Delivery Method Room Air Fraction of Inspired Oxygen (FIO2) 07/15/24 16:04 07/15/24 16:04 07/15/24 16:26 Temperature 80.7 F L Temperature Source Core Pulse Rate 55 L 55 L Respiratory Rate 18 22 H Respiratory Effort Non-Labored Respiratory Depth Shallow Respiratory Pattern Normal Bradypnea Blood Pressure 82/61 L Blood Pressure Mean 68 Blood Pressure Source Blood Pressure Position Blood Pressure Location Pulse Ox 100 100 Oxygen Delivery Method Mechanical Ventilator Fraction of Inspired Oxygen (FIO2) 50 07/15/24 16:30 07/15/24 16:42 07/15/24 16:52 Temperature 81.2 F L Temperature Source Core Pulse Rate 49 L 48 L 61 Respiratory Rate 22 H 22 H 24 H Respiratory Effort Respiratory Depth Respiratory Pattern Normal Blood Pressure 68/41 L 55/45 L Blood Pressure Mean 50 48 Blood Pressure Source Monitor Blood Pressure Position Supine Blood Pressure Location Left Arm Pulse Ox 100 100 100 Oxygen Delivery Method Mechanical Ventilator Mechanical Ventilator Fraction of Inspired Oxygen (FIO2) 30 07/15/24 17:00 07/15/24 17:30 07/15/24 18:00 Temperature 83.0 F L 83.7 F L Temperature Source Core Core Pulse Rate 66 70 68 Respiratory Rate 24 H 24 H 24 H Respiratory Effort Respiratory Depth Respiratory Pattern Blood Pressure 116/75 123/85 H 113/78 Blood Pressure Mean 88 97 89 Blood Pressure Source Blood Pressure Position Blood Pressure Location Pulse Ox 100 100 100 Oxygen Delivery Method Mechanical Ventilator Room Air Mechanical Ventilator Fraction of Inspired Oxygen (FIO2) 07/15/24 18:28 07/15/24 18:30 07/15/24 19:00 Temperature 84.4 F L 85.1 F L Temperature Source Core Core Pulse Rate 57 L 60 70 Respiratory Rate 24 H 24 H 24 H Respiratory Effort Respiratory Depth Respiratory Pattern Blood Pressure 76/45 L 78/46 L 115/82 H Blood Pressure Mean 55 56 93 Blood Pressure Source Monitor Blood Pressure Position Supine Blood Pressure Location Left Arm Pulse Ox 100 100 100 Oxygen Delivery Method Mechanical Ventilator Mechanical Ventilator Fraction of Inspired Oxygen (FIO2) 07/15/24 19:05 07/15/24 19:30 07/15/24 19:54 Temperature 85.5 F L 86.1 F L Temperature Source Core Pulse Rate 71 71 74 Respiratory Rate 24 H 24 H 24 H Respiratory Effort Respiratory Depth Respiratory Pattern Normal Blood Pressure 118/80 123/76 H Blood Pressure Mean 92 91 Blood Pressure Source Blood Pressure Position Blood Pressure Location Pulse Ox 100 100 100 Oxygen Delivery Method Mechanical Ventilator Fraction of Inspired Oxygen (FIO2) Weight Weight: 209 lb 10.554 oz Body Mass Index (BMI) 27.6 Physical Exam Narrative Physical Examination: General: Intubated, sedated, unresponsive, no immediate distress noted. Skin: Normal color, normal turgor, no icterus, no cyanosis except various abrasions, staged ecchymoses, history of previous notable diabetic wounds. HEENT: AT/NC, EOM unable to be assessed given intubated and sedated status, PERRLA, dry MM, ET tube in place/OG in place, no carotid bruits or JVD noted. Lungs: Intubated, ET tube in place, symmetric rise, diminished bases, no rales, ronchi or wheezing. Heart: Currently improved, regular rate and rhythm; no gallop, rub audible. Abdomen: Soft, no grimacing with palpation however intubated and sedated, nondistended, hyperactive BS, no appreciated HSM. Extremities: No cyanosis, clubbing, or edema, see skin. Neurological: Patient intubated, sedated, cognitive function not baseline intact, pupils equally reactive to light and accommodation, cranial nerves unable to be assessed while given intubated/sedated status, not moving extremities but expected as noted, strength severely globally decreased given presentation. Psychiatric: Affect appears flat, sedated, no acute evidence of depressive or anxiety feelings. Results Lab / Micro Data 07/15/24 15:43 07/15/24 18:00 Labs: Laboratory Results - last 24 hr 07/15/24 15:43: WBC 29.2 H, RBC 5.37, Hgb 14.3, Hct 46.7, MCV 87.0, MCH 26.6 L, MCHC 30.6 L, RDW Std Deviation 42.9, RDW Coeff of Rabia 14.1, Plt Count 510 H, MPV 10.4, Immature Gran % (Auto) EXTRACTION SUPERVISOR, Neut % (Auto) EXTRACTION SUPERVISOR, Lymph % (Auto) EXTRACTION SUPERVISOR, [place] % (Auto) EXTRACTION SUPERVISOR, Eos % (Auto) EXTRACTION SUPERVISOR, Baso % (Auto) EXTRACTION SUPERVISOR, Absolute Neuts (auto) 17.8 H, Absolute Lymphs (auto) 8.52 H, Total Counted 100, Neutrophils % (Manual) 48, Band Neutrophils % 2, Lymphocytes % (Manual) 40, Monocytes % (Manual) 10, Nucleated RBC % 0.1, Diff Path Review March07/15/24 15:44: Sodium 132 L 07/15/24 15:44: Sodium Cancelled, Potassium 5.8 H 07/15/24 15:44: Potassium Cancelled, Chloride 95 L 07/15/24 15:44: Chloride Cancelled, Carbon Dioxide 3.0 L* 07/15/24 15:44: Carbon Dioxide Cancelled, Anion Gap 34 H 07/15/24 15:44: Anion Gap Cancelled, BUN 24 H 07/15/24 15:44: BUN Cancelled, Creatinine 1.71 H 07/15/24 15:44: Creatinine Cancelled, Estim Creat Clear Calc 75.93 07/15/24 15:44: Estim Creat Clear Calc 76.83, Est GFR (MDRD) Af Amer 64 07/15/24 15:44: Est GFR (MDRD) Af Amer Cancelled, Est GFR (MDRD) Non-Af 53 L 07/15/24 15:44: Est GFR (MDRD) Non-Af Cancelled, BUN/Creatinine Ratio 14.0 07/15/24 15:44: BUN/Creatinine Ratio Cancelled, Glucose 849 H* 07/15/24 15:44: Glucose Cancelled, Calcium 9.4 07/15/24 15:44: Calcium Cancelled, Phosphorus 7.9 H, Magnesium 3.0 H, Troponin I High Sens 5, TSH 0.546, Free T4 1.10, Free T3 pg/dL 1.6 L 07/15/24 15:46: Urine Opiates Screen NEGATIVE, Urine Methadone Screen NEGATIVE, Ur Barbiturates Screen NEGATIVE, Ur Phencyclidine Scrn NEGATIVE, Ur Amphetamines Screen NEGATIVE, MDMA (Ecstasy) Screen NEGATIVE, U Benzodiazepines Scrn NEGATIVE, Urine Cocaine Screen NEGATIVE, U Cannabinoids Screen NEGATIVE, Ur Drug Screen Comment 07/15/24 15:50: Urine Color Straw, Urine Clarity Clear, Urine pH 6.0, Ur Specific [place] 1.020, Urine Protein 30 H, Urine Glucose (UA) 1000 H, Urine Ketones 150 A*, Urine Occult Blood 25 H, Urine Nitrite Negative, Urine Bilirubin Negative, Urine Urobilinogen Normal, Ur Leukocyte Esterase Negative, Urine RBC 0 SEEN, Urine WBC 0 SEEN, Ur Squamous Epith Cells 0 SEEN, Urine Bacteria 1+, Urine Mucus 0 SEEN 07/15/24 15:58: Lactic Acid 4.6 H*, Acetone Level LARGE H 07/15/24 17:17: POC Glucose > 500 H* 07/15/24 18:00: Sodium 136, Potassium 3.6, Chloride 98, Carbon Dioxide 5.0 L*, Anion Gap 33 H, BUN 29 H, Creatinine 1.71 H, Estim Creat Clear Calc 75.93, Est GFR (MDRD) Af Amer 64, Est GFR (MDRD) Non-Af 53 L, BUN/Creatinine Ratio 17.0, Glucose 834 H*, Calcium 9.4, Ethyl Alcohol < 3.0 07/15/24 18:10: POC Glucose > 500 H* 07/15/24 19:24: POC Glucose > 500 H* ABG Data ABG results: ABG 07/15/24 16:35 Specimen Type ART Sample Site L Radial pH 6.80 L* Bicarbonate Actual 4.1 L Total CO2 < 5 Base Excess < -30 L O2 Saturation 100 H O2 % 50.0 ABG pCO2 26.6 L ABG pO2 358 H* Hector Test Positive Respiration Rate 22 O2 Delivery Device Adult Vent Vent Mode AC Tidal Volume 450.0 POC PEEP 5 Crit Call To/Read Back Yes Blood Gas Notified [place] Blood Gas Notified Time 16:37:06 Imaging Radiology Impression Brain CT 07/15/24 15:43 IMPRESSION: No acute intracranial abnormality. Electronically Signed: Jose Alberto Elkins MD at 19:14 EDT , Chest X-Ray 07/15/24 16:45 IMPRESSION: Interval placement of endotracheal tube with tip 2.5 cm above the judi. Interval placement of NG tube with tip in stomach. Otherwise, no change from prior study. Electronically Signed: Jose Alberto Elkins MD at 17:32 EDT , Assessment & Plan Assessment/Plan (1) Diabetic ketoacidosis: QUALIFIERS: Diabetes mellitus type: type 1 Diabetes mellitus complication detail: without coma Qualified Code(s): E10.10 - Type 1 diabetes mellitus with ketoacidosis without coma PLAN: Plan The patient is a 23 y/o M w/ PMHx: Hx VTE (DVT, PE on xarelto), Uncontrolled Diabetes mellitus type I with frequent DKA presentations noncomplaint with his insulin and diet, Chronic severe protein calorie malnutrition, Hx 2021 pericarditis/pericardial infection (Treated at [facility], MSSA infection treated with abx therapy), History Stage II L buttock pressure, Hx dysphagia secondary to severe LA grade D erosive esophagitis with candidiasis, Chronic anemia/Fe deficiency anemia, Anxiety and Depression, GERD who presents to the [facility] ED on 07/15/2024 with history of being found unresponsive next to his AC unit noted to be very hypothermic, hypotensive and bradycardic upon initial evaluation prompting immediate transition to the ED for evaluation with notably altered mental status with recent discharge 07/10/2024 following admission and care of intractable nausea and emesis with DKA secondary to poorly controlled diabetes type 1 with electrolyte disturbances which resolved at the discharge time. #1. Acute Shock, Undifferentiated (hypothermia, hypotension requiring pressors, leukocytosis, RADHA, lactic acidosis), secondary to Acute Encephalopathy/Diabetic coma secondary to DKA w/ Diabetes mellitus type I complicated by resulting #2, also noted #3, #4: Patient initiated in the ED on insulin drip as well as epinephrine. Will admit to the ICU, continue intubated and sedated status, continue pressor therapy with transition to NEP, continue ICU physician consultation, trend LA per facility protocol, trend ABG, continue bicarb drip, continue on insulin drip, check serial K+, glucose w/ IVF changes pending these levels, serial chemistry, obtain mag, phos daily w/ repletion as needed, transition to home SC regimen when gap closed w/ overlap on drip, nutrition consultation. Nutrition consultation for education and teaching. UCx pending, Bld Cx pending, will obtain urine antigens, will attempt to induce sputum for Cx, procalcitonin requested, will obtain cdiff/enteric if diarrhea noted given prior history, plan repeat CXR concurrently in AM, in the interim will place on IV Vanc and Zosyn, MRSA screen requested. #2. Electrolyte disturbances w/ Metabolic acidosis: Will continue treatment as noted #1, will administer bicarb amp in the ED and transitioned to drip, will continue bicarb drip, trend ABG as needed, ICU physician consulted as noted, repeat electrolytes including K resulted however prior was noted to be moderately hemolyzed of note. #3. Leukocytosis, unclear etiology, possibly reactive given #1: As noted above, will continue to aggressively hydrate, will continue treatment as noted #1, repeat CBC in AM, procalcitonin pending, UCx pending, Bld Cx pending, will obtain urine antigens, will attempt to induce sputum for Cx, procalcitonin requested, will obtain cdiff/enteric if diarrhea noted given prior history, plan repeat CXR concurrently in AM, in the interim will place on IV Vanc and Zosyn, MRSA screen requested. #4. Acute kidney injury: Secondary to #1, #2, admission BUN/Cr 24/1.71, prior baseline creatinine noted to be 0.7-0.9. Will continue to aggressively hydrate as noted above per DKA protocol, hold nephrotoxic medications and repeat BMP serially as noted. #5. GERD: Maintained on IV PPI cautiously especially given C. difficile history, given unclear etiology for leukocytosis as noted above have requested stool enteric and C. difficile to be cautious. #6. Chronic microcytic anemia/Fe deficiency anemia: Admission hemoglobin 14.3, MCV 87, baseline hemoglobin primarily 9-11, given presentation suspect falsely elevated, will continue to trend CBC. #7. History of dysphagia secondary to severe LA grade D erosive esophagitis with candidiasis: Noted prior history, completed previously oral antifungal regimen, encouraged continued outpatient follow-up with speech as previously ranged, will maintain on IV PPI as noted. #8. History of VTE: Patient with history DVT, PE, given current creatinine clearance will continue Xarelto regimen but alter if worsens. #9. Lactose intolerant: We will temporarily hold patient home chronic lactase regimen until oral diet started, resume once appropriate. #10. Anxiety and depression: W will temporally hold home mirtazapine regimen. #11. Severe chronic protein and calorie malnutrition: Patient with significant underlying comorbidities as well as diabetic disease with noncompliance, evidence of muscle wasting evident, nutrition will be consulted for education, teaching as well as recommendations to maximize patient malnutrition treatment. #12. History of chronic pressure ulcers: Patient with previous significant sacral and buttock pressure ulcers, currently resolved, encourage continued frequent self evaluation, positional changes and routine movement. #13. DVT prophylaxis: Will continue Xarelto regimen. #14. CODE status: Patient does not have a healthcare power of research attorney or living will in place but his mother and grandmother who are present would be his decision makers the note. Discussed CODE status at length including difference between FULL code, DNR-CCA and DNR-CC status. Following discussions about the differences in these status, requested continued Full Code status. Advanced Care Planning Face to Face Time: 16 minutes. Charges/Coding Visit Charges Inpatient E&M: 98236 Init Hosp L3 Procedures Hospitalists Procedures: 63093 Advncd Care Plan 30 Min
[2024-07-15 20:26] LABS: Reflex Lactate? Y
[2024-07-15 21:37] LABS: Bedside Glucose > 500 mg/dL (74-106)
[2024-07-15 21:38] LABS: Lactic Acid 4.6 mmol/L (0.4-1.9)
--- NOTE | 2024-07-15 21:55 | CON.PCM.CC_ITS ---
HPI Consult Data Date of Consult: 07/15/24 HPI Narrative Reason for Consultation: DKA, Acute respiratory failure HPI Narrative: This is a 23-year-old male admitted to the ICU for acute respiratory failure and DKA. He was recently admitted July 08 at which time he was treated for intractable nausea vomiting and DKA. He returned to the ED this evening after found unresponsive. EMS reported that he was hypotensive and bradycardic on their evaluation. On arrival to the ED he was not protecting his airway and subsequently intubated. Initial labs significant for WBC 29, initial ABG 6.8/</358. Serum bicarb 5, anion gap 33, creatinine 1.7, glucose 834. UA positive for glucose and ketones. Tox screen was negative, ethyl alcohol was less than 3, acetone level was large chest x-ray showed appropriate placement lines no infiltrates. CT head was negative for acute intracranial abnormalities [facility] Medical History History of diabetes mellitus Anticoagulant long-term use Anemia due to chronic illness Merced grade D esophagitis Minerva esophagitis Gastroparesis Recurrent pulmonary embolism AP window (aortopulmonary window) Anxiety Depression DVT (deep venous thrombosis) Hypokalemia Noncompliance with diabetes treatment History of medication noncompliance Severe protein-calorie malnutrition Kidney disease Hypokalemia Non-smoker Asthma Psychosocial problem femur surgery Diabetes mellitus type 1 GERD (gastroesophageal reflux disease) Home Medications ?Medication ?Instructions ?Recorded ?Last Taken ?Type insulin lispro 100 unit/mL See Protocol subcut ACHS DIABETES 07/24/22 10/05/23 History subcutaneous pen (Humalog KwikPen (U-100) Insulin) blood sugar diagnostic (OneTouch 02/27/23 Unknown History Verio test strips) flash glucose sensor (FreeStyle 02/27/23 Unknown History Niru 14 Day Sensor kit) insulin glargine-yfgn 100 unit/mL 35 unit (0.35 mL) subcut BID #10 07/10/24 Unknown Rx (3 mL) subcutaneous pen pens pen needle, diabetic 31 gauge x #100 ea 07/10/24 Unknown Rx 1/3 Allergy/AdvReac Type Severity Reaction Status Date / Time vancomycin Allergy local Verified 07/15/24 15:38 rash/hives to IV site Family History Father Polysubstance overdose Patient father young secondary to OD. Mother Iron deficiency anemia Other Asthma CVA (cerebral vascular accident) Diabetes Hypertension Thyroid disorder Surgical History H/O right knee surgery History of surgery on extremity Hx of knee surgery Social History housing: other details: Lives with his grandmother, aunt and mother. Smoking Status: Never smoker alcohol intake: current alcohol intake frequency: a few times a month substance use type: does not use ROS Review of Systems ROS Unobtainable: due to endotracheal tube Objective Data Objective Data Vital Signs: Vital Signs Last response 3 Temperature 31.4 C L 07/15/24 21:00 Temperature Source Core 07/15/24 21:00 Pulse Rate 92 07/15/24 21:30 Respiratory Rate 24 H 07/15/24 21:30 Respiratory Effort Non-Labored 07/15/24 16:26 Respiratory Depth Shallow 07/15/24 16:26 Respiratory Pattern Normal 07/15/24 19:05 Blood Pressure 128/73 H 07/15/24 21:30 Blood Pressure Mean 91 07/15/24 21:30 Blood Pressure Source Monitor 07/15/24 18:28 Blood Pressure Position Supine 07/15/24 18:28 Blood Pressure Location Left Arm 07/15/24 18:28 Pulse Ox 100 07/15/24 21:30 Oxygen Delivery Method Mechanical Ventilator 07/15/24 21:30 Fraction of Inspired Oxygen (FIO2) 30 07/15/24 16:52 I&O: I&O Last 24 Hours 3 07/14/24 07/15/24 07/15/24 23:59 11:59 23:59 Intake Total 2411.98 / 2411.98 Output Total 2500 / 2500 Balance -88.02 / -88.02 I&O: Total Stay 3 07/15/24 15:28 thru 07/15/24 21:51 Intake Total 2411.98 Output Total 2500 Balance -88.02 Current Meds Ordered / Administered: Current meds ordered / Administered 3 Generic Name Dose Route Start Last Admin Trade Name Freq PRN Reason Stop Dose Admin Fentanyl 100 mls @ 5 mls/hr 07/15/24 16:10 07/15/24 17:07 CONT INF 50 mcg/hr UD LILLY 5 mls/hr Administration Protocol 50 MCG/HR Epinephrine HCl 1 mg/ Sodium 251 mls @ 143.221 mls/hr 07/15/24 16:30 07/15/24 20:44 Chloride CONT INF 0.1 mcg/kg/min .[id number] LILLY 143.2 mls/hr Administration Protocol 0.1 MCG/KG/MIN Insulin Human Lispro 100 unit/ 100 mls @ 9.51 mls/hr 07/15/24 17:00 07/15/24 18:42 Sodium Chloride CONT INF 9.51 mls/hr .[id number] LILLY 9.5 mls/hr Administration Protocol Sodium Bicarbonate 50 meq/ 1,050 mls @ 100 mls/hr 07/15/24 16:55 07/15/24 18:42 Dextrose IV 100 mls/hr .[id number] LILLY Administration Potassium Chloride 20 meq/ 1,010 mls @ 250 mls/hr 07/15/24 19:10 07/15/24 20:58 Lactated Ringer's IV Infused .[id number] LILLY Infusion Physical Exam Narrative Gen: Intubated, agitated on vent Eyes: PERRL ENT: Orally intubated CV: S1S2, tachy Pulm: Dyssynchronous on vent Abd: Soft/NT Extrem: No c/c/e Lab / Micro Data 07/15/24 15:43 07/15/24 18:00 Labs: Laboratory Results - last 24 hr 07/15/24 15:43: WBC 29.2 H, RBC 5.37, Hgb 14.3, Hct 46.7, MCV 87.0, MCH 26.6 L, MCHC 30.6 L, RDW Std Deviation 42.9, RDW Coeff of Rabia 14.1, Plt Count 510 H, MPV 10.4, Immature Gran % (Auto) MANAGER OF LOSS [employer]ION OPERATIONS, Neut % (Auto) MANAGER OF LOSS [employer]ION OPERATIONS, Lymph % (Auto) MANAGER OF LOSS PRE[employer]ION OPERATIONS, Bond % (Auto) MANAGER OF LOSS PREVENTION OPERATIONS, Eos % (Auto) MANAGER OF LOSS PREVENTION OPERATIONS, Baso % (Auto) MANAGER OF LOSS PREVENTION OPERATIONS, Absolute Neuts (auto) 17.8 H, A bsolute Lymphs (auto) 8.52 H, Total Counted 100, Neutrophils % (Manual) 48, Band Neutrophils % 2, Lymphocytes % (Manual) 40, Monocytes % (Manual) 10, Nucleated RBC % 0.1, Diff Path Review March foll 07/15/24 15:44: Sodium 132 L 07/15/24 15:44: Sodium Cancelled, Potassium 5.8 H 07/15/24 15:44: Potassium Cancelled, Chloride 95 L 07/15/24 15:44: Chloride Cancelled, Carbon Dioxide 3.0 L* 07/15/24 15:44: Carbon Dioxide Cancelled, Anion Gap 34 H 07/15/24 15:44: Anion Gap Cancelled, BUN 24 H 07/15/24 15:44: BUN Cancelled, Creatinine 1.71 H 07/15/24 15:44: Creatinine Cancelled, Estim Creat Clear Calc 75.93 07/15/24 15:44: Estim Creat Clear Calc 76.83, Est GFR (MDRD) Af Amer 64 07/15/24 15:44: Est GFR (MDRD) Af Amer Cancelled, Est GFR (MDRD) Non-Af 53 L 07/15/24 15:44: Est GFR (MDRD) Non-Af Cancelled, BUN/Creatinine Ratio 14.0 07/15/24 15:44: BUN/Creatinine Ratio Cancelled, Glucose 849 H* 07/15/24 15:44: Glucose Cancelled, Calcium 9.4 07/15/24 15:44: Calcium Cancelled, Phosphorus 7.9 H, Magnesium 3.0 H, Troponin I High Sens 5, TSH 0.546, Free T4 1.10, Free T3 pg/dL 1.6 L 07/15/24 15:46: Urine Opiates Screen NEGATIVE, Urine Methadone Screen NEGATIVE, Ur Barbiturates Screen NEGATIVE, Ur Phencyclidine Scrn NEGATIVE, Ur Amphetamines Screen NEGATIVE, MDMA (Ecstasy) Screen NEGATIVE, U Benzodiazepines Scrn NEGATIVE, Urine Cocaine Screen NEGATIVE, U Cannabinoids Screen NEGATIVE, Ur Drug Screen Comment 07/15/24 15:50: Urine Color Straw, Urine Clarity Clear, Urine pH 6.0, Ur Specific [place] 1.020, Urine Protein 30 H, Urine Glucose (UA) 1000 H, Urine Ketones 150 A*, Urine Occult Blood 25 H, Urine Nitrite Negative, Urine Bilirubin Negative, Urine Urobilinogen Normal, Ur Leukocyte Esterase Negative, Urine RBC 0 SEEN, Urine WBC 0 SEEN, Ur Squamous Epith Cells 0 SEEN, Urine Bacteria 1+, Urine Mucus 0 SEEN 07/15/24 15:58: Lactic Acid 4.6 H*, Acetone Level LARGE H 07/15/24 17:17: POC Glucose > 500 H* 07/15/24 18:00: Sodium 136, Potassium 3.6, Chloride 98, Carbon Dioxide 5.0 L*, A nion Gap 33 H, BUN 29 H, Creatinine 1.71 H, Estim Creat Clear Calc 75.93, Est GFR (MDRD) Af Amer 64, Est GFR (MDRD) Non-Af 53 L, BUN/Creatinine Ratio 17.0, G lucose 834 H*, Calcium 9.4, Ethyl Alcohol < 3.0 07/15/24 18:10: POC Glucose > 500 H* 07/15/24 19:24: POC Glucose > 500 H* 07/15/24 20:40: Lactic Acid Cancelled 07/15/24 21:04: Lactic Acid 4.6 H* 07/15/24 21:18: POC Glucose > 500 H* ABG Data ABG results: ABG 07/15/24 16:35 Specimen Type ART Sample Site L Radial pH 6.80 L* Bicarbonate Actual 4.1 L Total CO2 < 5 Base Excess < -30 L O2 Saturation 100 H O2 % 50.0 ABG pCO2 26.6 L ABG pO2 358 H* Hector Test Positive Respiration Rate 22 O2 Delivery Device Adult Vent Vent Mode AC Tidal Volume 450.0 POC PEEP 5 Crit Call To/Read Back Yes Blood Gas Notified [place] Blood Gas Notified Time 16:37:06 Imaging Radiology Impression Brain CT 07/15/24 15:43 IMPRESSION: No acute intracranial abnormality. Electronically Signed: Jose Alberto Elkins MD at 19:14 EDT , Chest X-Ray 07/15/24 16:45 IMPRESSION: Interval placement of endotracheal tube with tip 2.5 cm above the judi. Interval placement of NG tube with tip in stomach. Otherwise, no change from prior study. Electronically Signed: Jose Alberto Elkins MD at 17:32 EDT , Assessment and Plan . Assessment and plan: ASSESSMENT # Acute respiratory failure, intubated for airway protection 07/15 # Severe DKA # Acute metabolic encephalopathy # Sepsis # RADHA PLAN -Ventilator reviewed and adjusted -Fentanyl, propofol for sedation -Follow ABG and chest x-ray -Continue IV fluid resuscitation -Insulin drip -Every 4 hour labs -Follow cultures -Empiric antibiotics Vanc, Zosyn -PO Vanc for C diff prophylaxis -Follow renal panel and urine output Prophylaxis: Heparin, Protonix Entire encounter performed via telemedicine Critical care time 60 minutes.
[2024-07-15] MEDS: Norepinephrine 8 MG in 0.9% Normal Saline (250mL Bag) 242 ML 9.4 MG CONT INF (23:00)
[2024-07-15] MEDS: Piperacil/Tazobactam 3.375 GM in 0.9% Normal Saline (50mL MB+) 50 ML IV (23:02)
[2024-07-15] MEDS: Pantoprazole Sodium 40 MG in 0.9% Normal Saline (100mL MB+) 100 ML 330 MG IV (23:02)
[2024-07-15] MEDS: Menthol/Lanolin/Calamine/Znox 113 GM Tube 1 APPLIC TOPICAL (23:03)
[2024-07-15] MEDS: Chlorhexidine 15 ML PO (23:06)
[2024-07-15] MEDS: 0.9% Normal Saline (1000mL) 1,000 ML 999 ML IV (23:13)
[2024-07-15 23:30] LABS: Allen Test Positive; Base Excess -30 mmol/L (-2 to +2); Bicarbonate 4.5 mmol/L (22-26); Blood Gas Specimen Type ART; Mode AC; O2 Delivery Device Adult Vent; PEEP 5; PO2 163 mmHG (75-100); RR 24; SITE R Radial; SO2 97 % (95-99); Total Carbon Dioxide 5 mmol/L; pCO2 27.9 mmHg (35-45); pH 6.81 (7.35-7.45)
[2024-07-15] MEDS: Vancomycin HCl 2,000 MG in 0.9% Normal Saline (500mL Bag) 500 ML 250 MG IV (23:34)
[2024-07-15] MEDS: Propofol 10MG/Ml 1,000 MG/100 ML Bottle 5.7 MG CONT INF (23:45)
--- NOTE | 2024-07-15 23:47 | CPS ---
[2321] Critical ABG results read to Dr. Kapoor. pH=6.81 PCO2=27.9 HCO3=4.5
[2024-07-16] VITALS (42 sets, daily range): BP systolic 73–116; BP diastolic 49–70; PULSE 89–118; RESP 10–142; TEMP 35.1–38.6; O2SAT 21–100; BMI 24.7
[2024-07-16] MEDS: Sodium Bicarbonate 8.4% 50 ML Syringe 50 MEQ IV (00:23)
[2024-07-16] MEDS: 0.9% Normal Saline (1000mL) 1,000 ML 999 ML IV (00:23)
[2024-07-16 00:27] LABS: Procalcitonin 0.26 ng/mL (0.00-0.09)
[2024-07-16 00:32] LABS: Anion Gap 28 (5-15); BUN 27 mg/dL (7-18); Calcium,Total 8.3 mg/dL (8.5-10.1); Chloride 106 mmol/L (98-107); Creatinine, Serum 1.59 mg/dL (0.70-1.30); EST Glomerular Filtration Rate 57 mL/min (>60); Est Glom Filt Rate - Afr Amer 69 mL/min (>60); Estimated Creatinine Clearance 81.66 ml/min; Glucose 635 mg/dL (74-106); Magnesium 2.4 mg/dL (1.6-2.6); Potassium 3.5 mmol/L (3.5-5.1); Sodium Level 140 mmol/L (136-145)
[2024-07-16 00:41] LABS: Bedside Glucose > 500 mg/dL (74-106)
[2024-07-16 00:42] LABS: Bedside Glucose > 500 mg/dL (74-106)
--- NOTE | 2024-07-16 00:43 | PCM.RX.CS ---
Consult Antibiotic Management Pharmacy has been consulted to manage selected antibiotic: Vancomycin Type of Intervention Type of Consult: New start Labs Labs: Sodium 140 mmol/L (136-145) 07/15/24 22:30 Potassium 3.5 mmol/L (3.5-5.1) 07/15/24 22:30 Chloride 106 mmol/L (98-107) 07/15/24 22:30 Carbon Dioxide 6.0 mmol/L (21.0-32.0) L* 07/15/24 22:30 Anion Gap 28 (5-15) H 07/15/24 22:30 BUN 27 mg/dL (7-18) H 07/15/24 22:30 Creatinine 1.59 mg/dL (0.70-1.30) H 07/15/24 22:30 Est GFR (MDRD) Af Amer 69 mL/min (>60) 07/15/24 22:30 Est GFR (MDRD) Non-Af 57 mL/min (>60) L 07/15/24 22:30 BUN/Creatinine Ratio 17.0 RATIO (10-20) 07/15/24 22:30 Glucose 635 mg/dL (74-106) H* 07/15/24 22:30 Dosing Weight Weight used for dosin kg Estimated Creatinine Clearance Estimated Creatinine Clearance: 82 Goal Trough Goal Trough: 15-20 mcg/mL Pharmacy Plan for Drug Dosing Pharmacy Plan for Drug Dosing: Pharmacy Service will continue to monitor and adjust dosing as required. Follow-Up Labs Follow-Up Labs: Trough: Vancomycin Date/Time Labs Ordered Labs to be done on [date and time ordered]: 07/17/24 @1100
--- NOTE | 2024-07-16 00:43 | NURSING ---
Vitals were lost from monitor through 2353. During that time patient was admitted to ICU and started on levophed. Levo was titrated once during that time when patient a MAP of 61.
--- NOTE | 2024-07-16 01:03 | NURSING ---
Leak HunterPayton requested that the patient's ventilator settings be changed to a rate of 12 and Tidal Volumes of 600. Respiratory therapist in room and ventilator settings changed accordingly.
[2024-07-16 01:09] LABS: Reflex Lactate? Y
[2024-07-16 02:12] LABS: Lactic Acid 1.5 mmol/L (0.4-1.9)
[2024-07-16 02:16] LABS: Bedside Glucose 352 mg/dL (74-106)
[2024-07-16 02:16] LABS: Bedside Glucose 469 mg/dL (74-106)
[2024-07-16 02:37] LABS: CPK Total, Creatine Kinase 164 U/L (39-308); Triglycerides 873 mg/dL
[2024-07-16 02:52] LABS: Absolute Lymphocyte Count 1.93 X10^3/uL (0.83-4.51); Absolute Neutrophil Count 8.6 X10^3/uL (2.0-7.7); Basophil# 0.09 X10^3/uL; Basophil% 0.5 % (0-1); Eosinophil# 6.57 X10^3/uL; Eosinophils% 34.7 % (0-5); Hematocrit 34.3 % (40-54); Hemoglobin 11.5 g/dL (13.0-16.5); Lymphocyte # 1.93 X10^3/ul (0.83-4.51); Lymphocyte % 10.2 % (19-41); Mean Corp Hgb Conc 33.5 g/dL (32-36); Mean Corpuscular Hgb 26.8 pg (27.0-32.0); Mean Platelet Vol. 9.6 fl (6.2-12.0); Monocyte# 1.27 X10^3/uL; Monocyte% 6.7 % (0-10); NRBC Flagged by Analyzer 0.6 % (0-5); Neutrophil # 8.64 X10^3/uL (2.7-7.7); Neutrophil % 45.5 % (47-70); POSITIVE DIFFERENTIAL YES; POSITIVE MORPHOLOGY YES; Platelet Count 398 K/mm3 (150-450); RBC Distribution Width CV 14.3 % (11.6-14.6); Red Blood Count 4.29 M/mm3 (4.6-6.2)
[2024-07-16] MEDS: Lactated Ringers 1,000 ML 150 ML IV (02:57)
[2024-07-16 03:47] LABS: AST(SGOT) 16 U/L (15-37); Alanine Aminotransfer ALT/SGPT 26 U/L (16-61); Albumin, Serum 2.9 g/dL (3.2-5.0); Alkaline Phosphatase 138 U/L (45-117); Anion Gap 22 (5-15); BUN 22 mg/dL (7-18); BUN/Creat Ratio 18.2 RATIO (10-20); Bilirubin, Direct 0.13 mg/dL (0.00-0.30); Calcium,Total 7.6 mg/dL (8.5-10.1); Chloride 115 mmol/L (98-107); Creatinine, Serum 1.21 mg/dL (0.70-1.30); EST Glomerular Filtration Rate 79 mL/min (>60); Est Glom Filt Rate - Afr Amer 95 mL/min (>60); Globulin 2.8 g/dL (2.2-4.2); Glucose 323 mg/dL (74-106); Potassium 4.1 mmol/L (3.5-5.1); Protein, Total 5.7 g/dL (6.4-8.2); Sodium Level 145 mmol/L (136-145)
[2024-07-16 04:15] LABS: Allen Test Positive; Base Excess -23 mmol/L (-2 to +2); Bicarbonate 6.6 mmol/L (22-26); Blood Gas Specimen Type ART; Mode AC; O2 Delivery Device Adult Vent; PEEP 5; PO2 104 mmHG (75-100); RR 12; SITE R Radial; SO2 96 % (95-99); Total Carbon Dioxide 7 mmol/L; pCO2 21.3 mmHg (35-45)
[2024-07-16 04:40] LABS: Differential Indicated SCAN CRITERIA MET
--- NOTE | 2024-07-16 04:47 | CPS ---
[0410] Dr. Pak notified of pt.'s critical ABG results at this time (pH=7.1 pCO2=21.3 HCO3=6.6).
[2024-07-16 05:34] LABS: Differential Comment SCANNED
[2024-07-16] MEDS: Enoxaparin 40 MG/0.4 ML Syringe SC (05:40)
[2024-07-16] MEDS: Piperacil/Tazobactam 3.375 GM in 0.9% Normal Saline (50mL MB+) 50 ML IV ×3 (05:41→21:22)
[2024-07-16] MEDS: fentaNYL drip 100 ML 10 MCG CONT INF ×2 (05:41→16:32)
[2024-07-16] MEDS: Propofol 10MG/Ml 1,000 MG/100 ML Bottle 14.3 MG CONT INF (05:42)
--- NOTE | 2024-07-16 05:55 | RAD_ITS ---
STUDY: X-RAY CHEST REASON FOR EXAM: Male, 23 years old. Dyspnea TECHNIQUE: Frontal view of the chest COMPARISON: 07/15/2024 FINDINGS: The support lines and tubes are unchanged. The lungs are clear. There are no pleural effusions. There is no pneumothorax. The heart is normal in size. The visualized osseous structures are within normal limits. RAD/Chest 1 View (Portable) IMPRESSION: No acute thoracic pathology. Electronically Signed: Osvaldo Singh MD at 7:13 EDT ,
[2024-07-16] MEDS: Dext 5%-0.45% NS 1,000 ML 150 ML IV ×2 (06:50→13:16)
--- NOTE | 2024-07-16 06:58 | PCM.PN.INT ---
Assessment & Plan Assessment/Plan (1) Diabetic ketoacidosis: QUALIFIERS: Diabetes mellitus complication detail: without coma Diabetes mellitus type: type 1 Qualified Code(s): E10.10 - Type 1 diabetes mellitus with ketoacidosis without coma (2) Sepsis: QUALIFIERS: Sepsis acute organ dysfunction status: without acute organ dysfunction Sepsis type: sepsis due to unspecified organism Qualified Code(s): A41.9 - Sepsis, unspecified organism PLAN: Plan RECOMMENDATIONS: 1. Continue assist-control mode mechanical ventilation. Wean FiO2 and PEEP for saturations greater than 90%. 2. Continue supplemental IV fluids and continuous insulin infusion per DKA protocol. 3. Monitor and replete electrolytes as needed. 4. Continue vasopressor support to maintain a mean arterial pressure at or above 65 mmHg. 5. Continue appropriate GI and DVT prophylaxis. 6. Continue fentanyl and propofol for sedation. 7. Hold on tube feeding pending resolution of DKA. IMPRESSIONS: 1. Acute hypoxemic respiratory failure The patient was initially intubated in the emergency department for airway protection in the setting of significant metabolic derangements. He has nothing to suggest underlying pulmonary infection on chest x-ray. The patient is doing quite well on the ventilator with an FiO2 requirement of 21%. Plan to continue current supportive measures, with plans to proceed with spontaneous awakening and breathing trials beginning tomorrow. 2. Multifactorial shock While sepsis is certainly a possibility, no definitive source of infection has yet to be identified. I do suspect that his presenting hypotension and need for vasopressor support is likely due to profound intravascular volume depletion in the setting of DKA. The patient continues to receive supplemental IV fluid hydration. He will be maintained on vasopressor support, for now, to maintain a mean arterial pressure at or above 65 mmHg. Given that the patient is not experiencing any diarrhea, will discontinue p.o. vancomycin. For now, given that cultures are still pending, will continue IV vancomycin and Zosyn empirically. If cultures are negative over the next 24 to 48 hours, antibiotics will be discontinued. 3. Severe diabetic ketoacidosis The patient has a longstanding history of medical noncompliance resulting in frequent hospitalizations for DKA. The patient will be continued on supplemental IV fluids and continuous insulin infusion, per protocol. Aggressive electrolyte repletion will be undertaken, as needed. Continue insulin infusion until anion gap has been closed x 2. 4. Acute metabolic encephalopathy Secondary to #3. The patient's mentation has improved with medical therapy. I anticipate that he will likely be able to be extubated in the next 24 hours. 5. Acute kidney injury Likely prerenal in etiology in the setting of DKA and hypotension. The patient's creatinine has improved with volume expansion. Continue to monitor urine output for now. There is no current indication for renal replacement therapy. 6. History of medical noncompliance/history of dysphagia with gastroparesis in the setting of diabetes mellitus/history of VTE/depression Complicates care, management, recovery and prognosis. Continue medical management as noted above. The patient will require PT evaluation once medically stabilized. TIME: 40 minutes of critical care time, independent of procedures, was spent addressing the patient's acute hypoxemic respiratory failure, multifactorial shock, severe diabetic ketoacidosis, acute metabolic encephalopathy, acute kidney injury, review of all data and collaboration with the care team. Subjective Subjective The patient was seen and examined at the bedside this morning. Events from the last 24 hours have been reviewed. The patient is currently afebrile maintaining appropriate oxygen saturations on assist-control mode mechanical ventilation with an FiO2 requirement of 21%. The patient remains on Levophed at 10 mcg/min to maintain hemodynamic stability. White blood cell count is elevated at 19,000 with a hemoglobin of 11.5 g/dL and normal platelet count. ABG this morning was notable for a pH of 7.1 with a pCO2 of 21 and pO2 of 104. Chemistry profile was notable for a sodium of 147, chloride of 119, bicarbonate of 11, anion gap of 17 and creatinine of 1.3. The patient is currently sedated on fentanyl and propofol. His supplemental IV fluids were transition to D5 half-normal saline this morning. Objective Data Objective Data The patient's most recent lab work, culture data and imaging studies have all been personally reviewed. Respiratory viral panel was negative. Blood, urine and sputum cultures are pending. Vital Signs: Vital Signs Temp Pulse Resp BP Pulse Ox O2 Del Method FiO2 98 F 112 H 17 94/57 L 100 Mechanical Ventilator 07/16/24 05:00 07/16/24 06:46 07/16/24 06:46 07/16/24 06:00 07/16/24 06:46 07/16/24 06:00 07/16/24 06:46 Oxygen Delivery Method Mechanical Ventilator Weight: 187 lb 13.341 oz Body Mass Index (BMI) 24.7 Intake & Output: Intake and Output for Last 24 Hours 07/14/24 07/15/24 07/16/24 23:59 23:59 23:59 Intake Total 3934.04 / 3940.17 4016.88 / 4016.88 Output Total 2500 / 2500 2500 / 2500 Balance 1434.04 / 1440.17 1516.88 / 1516.88 Lab / Micro Data Attestation: I reviewed the patient's lab results. 07/16/24 02:35 07/16/24 06:32 Labs: Laboratory Results - last 24 hr 07/15/24 15:43: WBC 29.2 H, RBC 5.37, Hgb 14.3, Hct 46.7, MCV 87.0, MCH 26.6 L, MCHC 30.6 L, RDW Std Deviation 42.9, RDW Coeff of Rabia 14.1, Plt Count 510 H, MPV 10.4, Immature Gran % (Auto) BASKET TURNER, Neut % (Auto) BASKET TURNER, Lymph % (Auto) BASKET TURNER, [place] % (Auto) BASKET TURNER, Eos % (Auto) BASKET TURNER, Baso % (Auto) BASKET TURNER, Absolute Neuts (auto) 17.8 H, Absolute Lymphs (auto) 8.52 H, Total Counted 100, Neutrophils % (Manual) 48, Band Neutrophils % 2, Lymphocytes % (Manual) 40, Monocytes % (Manual) 10, Nucleated RBC % 0.1, Diff Path Review March07/15/24 15:44: Sodium 132 L 07/15/24 15:44: Sodium Cancelled, Potassium 5.8 H 07/15/24 15:44: Potassium Cancelled, Chloride 95 L 07/15/24 15:44: Chloride Cancelled, Carbon Dioxide 3.0 L* 07/15/24 15:44: Carbon Dioxide Cancelled, Anion Gap 34 H 07/15/24 15:44: Anion Gap Cancelled, BUN 24 H 07/15/24 15:44: BUN Cancelled, Creatinine 1.71 H 07/15/24 15:44: Creatinine Cancelled, Estim Creat Clear Calc 75.93 07/15/24 15:44: Estim Creat Clear Calc 76.83, Est GFR (MDRD) Af Amer 64 07/15/24 15:44: Est GFR (MDRD) Af Amer Cancelled, Est GFR (MDRD) Non-Af 53 L 07/15/24 15:44: Est GFR (MDRD) Non-Af Cancelled, BUN/Creatinine Ratio 14.0 07/15/24 15:44: BUN/Creatinine Ratio Cancelled, Glucose 849 H* 07/15/24 15:44: Glucose Cancelled, Calcium 9.4 07/15/24 15:44: Calcium Cancelled, Phosphorus 7.9 H, Magnesium 3.0 H, Troponin I High Sens 5, TSH 0.546, Free T4 1.10, Free T3 pg/dL 1.6 L 07/15/24 15:46: Urine Opiates Screen NEGATIVE, Urine Methadone Screen NEGATIVE, Ur Barbiturates Screen NEGATIVE, Ur Phencyclidine Scrn NEGATIVE, Ur Amphetamines Screen NEGATIVE, MDMA (Ecstasy) Screen NEGATIVE, U Benzodiazepines Scrn NEGATIVE, Urine Cocaine Screen NEGATIVE, U Cannabinoids Screen NEGATIVE, Ur Drug Screen Comment 07/15/24 15:50: Urine Color Straw, Urine Clarity Clear, Urine pH 6.0, Ur Specific [place] 1.020, Urine Protein 30 H, Urine Glucose (UA) 1000 H, Urine Ketones 150 A*, Urine Occult Blood 25 H, Urine Nitrite Negative, Urine Bilirubin Negative, Urine Urobilinogen Normal, Ur Leukocyte Esterase Negative, Urine RBC 0 SEEN, Urine WBC 0 SEEN, Ur Squamous Epith Cells 0 SEEN, Urine Bacteria 1+, Urine Mucus 0 SEEN 07/15/24 15:58: Lactic Acid 4.6 H*, Acetone Level LARGE H 07/15/24 17:17: POC Glucose > 500 H* 07/15/24 18:00: Sodium 136, Potassium 3.6, Chloride 98, Carbon Dioxide 5.0 L*, Anion Gap 33 H, BUN 29 H, Creatinine 1.71 H, Estim Creat Clear Calc 75.93, Est GFR (MDRD) Af Amer 64, Est GFR (MDRD) Non-Af 53 L, BUN/Creatinine Ratio 17.0, Glucose 834 H*, Calcium 9.4, Ethyl Alcohol < 3.0 07/15/24 18:10: POC Glucose > 500 H* 07/15/24 19:24: POC Glucose > 500 H* 07/15/24 20:40: Lactic Acid Cancelled 07/15/24 21:04: Lactic Acid 4.6 H* 07/15/24 21:18: POC Glucose > 500 H* 07/15/24 22:24: POC Glucose > 500 H* 07/15/24 22:30: Sodium 140, Potassium 3.5, Chloride 106, Carbon Dioxide 6.0 L*, Anion Gap 28 H, BUN 27 H, Creatinine 1.59 H, Estim Creat Clear Calc 81.66, Est GFR (MDRD) Af Amer 69, Est GFR (MDRD) Non-Af 57 L, BUN/Creatinine Ratio 17.0, Glucose 635 H*, Calcium 8.3 L, Phosphorus 6.0 H, Magnesium 2.4, Total Creatine Kinase 164, Triglycerides 873 H, Procalcitonin 0.26 H 07/15/24 23:25: POC Glucose > 500 H* 07/16/24 00:27: POC Glucose 469 H* 07/16/24 01:30: Lactic Acid 1.5 07/16/24 01:35: POC Glucose 352 H 07/16/24 02:35: WBC 19.0 H, RBC 4.29 L, Hgb 11.5 L, Hct 34.3 L, MCV 80.0 D, MCH 26.8 L, MCHC 33.5 D, RDW Std Deviation 40.0, RDW Coeff of Rabia 14.3, Plt Count 398, MPV 9.6, Immature Gran % (Auto) 2.400 H, Neut % (Auto) 45.5 L, Lymph % (Auto) 10.2 L, [place] % (Auto) 6.7, Eos % (Auto) 34.7 H, Baso % (Auto) 0.5, Absolute Neuts (auto) 8.6 H, Absolute Lymphs (auto) 1.93, Nucleated RBC % 0.6, Differential Comment SCANNED, Sodium Cancelled 07/16/24 02:35: Sodium 145, Potassium Cancelled 07/16/24 02:35: Potassium 4.1, Chloride Cancelled 07/16/24 02:35: Chloride 115 H, Carbon Dioxide Cancelled 07/16/24 02:35: Carbon Dioxide 8.0 L*, Anion Gap Cancelled 07/16/24 02:35: Anion Gap 22 H, BUN Cancelled 07/16/24 02:35: BUN 22 H, Creatinine Cancelled 07/16/24 02:35: Creatinine 1.21, Estim Creat Clear Calc Cancelled 07/16/24 02:35: Estim Creat Clear Calc 107.30, Est GFR (MDRD) Af Amer Cancelled 07/16/24 02:35: Est GFR (MDRD) Af Amer 95, Est GFR (MDRD) Non-Af Cancelled 07/16/24 02:35: Est GFR (MDRD) Non-Af 79, BUN/Creatinine Ratio Cancelled 07/16/24 02:35: BUN/Creatinine Ratio 18.2, Glucose Cancelled 07/16/24 02:35: Glucose 323 H, Calcium Cancelled 07/16/24 02:35: Calcium 7.6 L, Total Bilirubin 0.90, Direct Bilirubin 0.13, AST 16, ALT 26, Alkaline Phosphatase 138 H, Total Protein 5.7 L, Albumin 2.9 L, Globulin 2.8 Micro: Microbiology 07/15/24 23:30 Mucosa - Nasopharyngeal Respiratory Panel (PCR) - Final ABG Data ABG results: ABG 07/15/24 07/15/24 07/16/24 16:35 23:24 04:08 Specimen Type ART ART ART Sample Site L Radial R Radial R Radial pH 6.80 L* 6.81 L* 7.10 L* Bicarbonate Actual 4.1 L 4.5 L 6.6 L Total CO2 < 5 5 7 Base Excess < -30 L -30 L -23 L O2 Saturation 100 H 97 96 O2 % 50.0 30.0 21.0 ABG pCO2 26.6 L 27.9 L 21.3 L ABG pO2 358 H* 163 H 104 H Hector Test Positive Positive Positive Respiration Rate 22 24 12 O2 Delivery Device Adult Vent Adult Vent Adult Vent Vent Mode AC AC AC Tidal Volume 450.0 450.0 600.0 POC PEEP 5 5 5 Crit Call To/Read Back Yes Yes Yes Blood Gas Notified [facility] [place] [facility] Blood Gas Notified Time 16:37:06 23:27:52 04:12:06 Radiography Diagnostic Testing: Radiology Impression Brain CT 07/15/24 15:43 IMPRESSION: No acute intracranial abnormality. Electronically Signed: Jose Alberto Elkins MD at 19:14 EDT , Chest X-Ray 07/15/24 16:45 IMPRESSION: Interval placement of endotracheal tube with tip 2.5 cm above the judi. Interval placement of NG tube with tip in stomach. Otherwise, no change from prior study. Electronically Signed: Jose Alberto Elkins MD at 17:32 EDT , Physical Exam Const Constitutional Narrative: Intubated, sedated and mechanically ventilated. General Appearance: ill appearing HEENT normocephalic, head/scalp atraumatic and moist oral mucous membranes Mouth: endotracheal tube in place and OG tube in place Eyes PERRL and EOMs intact bilaterally Neck supple General: trachea midline Chest inspection of chest normal Resp normal respiratory effort Auscultation: Negative for rales, rhonchi or wheezes Cardio regular rate and regular rhythm GI normal to inspection, nondistended, normoactive bowel sounds Extremity no clubbing, cyanosis or edema Skin no rashes or lesions noted Neuro Neuro Narrative: Will arouse and attempt to follow simple commands. Sensorium / Orientation: sedated on vent Charges/Coding Procedures Hospitalists Procedures: 93107 Critical Care 1st Hr
[2024-07-16 07:02] LABS: Anion Gap 17 (5-15); BUN 19 mg/dL (7-18); BUN/Creat Ratio 14.5 RATIO (10-20); Calcium,Total 8.2 mg/dL (8.5-10.1); Chloride 119 mmol/L (98-107); Creatinine, Serum 1.31 mg/dL (0.70-1.30); EST Glomerular Filtration Rate 72 mL/min (>60); Est Glom Filt Rate - Afr Amer 87 mL/min (>60); Estimated Creatinine Clearance 99.11 ml/min; Glucose 176 mg/dL (74-106); Potassium 4.1 mmol/L (3.5-5.1); Sodium Level 147 mmol/L (136-145)
--- NOTE | 2024-07-16 07:03 | PCM.PN.HOSP ---
Reason for Visit Reason for Visit: Unresponsiveness Subjective Subjective Mr. Groves is a 23-year-old type I diabetic who has multiple admissions for DKA who presented to the emergency department [facility] on 02/13/2024 due to unresponsiveness. He had a recent admission here from 07/08/2024 through 07/10/2024 for DKA. 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 He evidently had done okay for couple days after discharge. Family reported he had some persistent loose stool with abdominal cramping and poor appetite. On the day of presentation he was found unresponsive next to the air conditioning unit and noted to be very hypothermic, hypotensive, and bradycardic on arrival to the emergency department. He had significantly altered mental status and was emergently intubated upon arrival. Temperature on presentation was 79 degrees, heart rate was 52, blood pressure was 80/40, respiratory rate 16 oxygen saturations were 100% on room air. CBC showed a marked leukocytosis with a white count of 29.2 and thrombocytosis with a platelet count of 510,000. He is typically anemic at baseline and is hemoglobin was 14.3 indicative of severe hemoconcentration. Chemistry on arrival was markedly abnormal as well having a sodium of 132, potassium 5.8, chloride 95, serum bicarb of 3, serum creatinine of 1.57 with baseline of 1-1.3, blood glucose of 849 and a lactic acid of 4.6. Troponin was normal at 5. Procalcitonin 0.26 and triglyceride 373. TSH was within normal limits. Initial ABG showed a pH of 6.8 with a pCO2 of 26.6 and a pO2 of 350. CT of the brain showed no acute intracranial abnormality and chest x-ray showed no acute abnormalities. He was treated with IV fluids but ultimately did require pressors. Cultures were sent and antibiotics were initiated. Patient was evaluated in intensive care unit. He is currently intubated and on ventilator. Mental status is slowly improving with improvement in his blood gas. Objective Data Objective Data Vital Signs: Vital Signs Temp Pulse Resp BP Pulse Ox O2 Del Method FiO2 99.1 F 112 H 13 89/56 L 100 Mechanical Ventilator 07/16/24 07:00 07/16/24 07:00 07/16/24 07:00 07/16/24 07:00 07/16/24 07:00 07/16/24 07:00 07/16/24 07:00 Oxygen Delivery Method Mechanical Ventilator Weight: 85.2 kg Body Mass Index (BMI) 24.7 Intake & Output: Intake and Output for Last 24 Hours 07/14/24 07/15/24 07/16/24 23:59 23:59 23:59 Intake Total 3934.04 / 3940.17 4059.98 / 4059.98 Output Total 2500 / 2500 2500 / 2500 Balance 1434.04 / 1440.17 1559.98 / 1559.98 Lab / Micro Data 07/16/24 02:35 07/16/24 11:15 Labs: Laboratory Results - last 24 hr 07/15/24 15:43: WBC 29.2 H, RBC 5.37, Hgb 14.3, Hct 46.7, MCV 87.0, MCH 26.6 L, MCHC 30.6 L, RDW Std Deviation 42.9, RDW Coeff of Rabia 14.1, Plt Count 510 H, MPV 10.4, Immature Gran % (Auto) COUNSELLING PSYCHOLOGIST, Neut % (Auto) COUNSELLING PSYCHOLOGIST, Lymph % (Auto) COUNSELLING PSYCHOLOGIST, [place] % (Auto) COUNSELLING PSYCHOLOGIST, Eos % (Auto) COUNSELLING PSYCHOLOGIST, Baso % (Auto) COUNSELLING PSYCHOLOGIST, Absolute Neuts (auto) 17.8 H, Absolute Lymphs (auto) 8.52 H, Total Counted 100, Neutrophils % (Manual) 48, Band Neutrophils % 2, Lymphocytes % (Manual) 40, Monocytes % (Manual) 10, Nucleated RBC % 0.1, Diff Path Review March07/15/24 15:44: Sodium 132 L 07/15/24 15:44: Sodium Cancelled, Potassium 5.8 H 07/15/24 15:44: Potassium Cancelled, Chloride 95 L 07/15/24 15:44: Chloride Cancelled, Carbon Dioxide 3.0 L* 07/15/24 15:44: Carbon Dioxide Cancelled, Anion Gap 34 H 07/15/24 15:44: Anion Gap Cancelled, BUN 24 H 07/15/24 15:44: BUN Cancelled, Creatinine 1.71 H 07/15/24 15:44: Creatinine Cancelled, Estim Creat Clear Calc 75.93 07/15/24 15:44: Estim Creat Clear Calc 76.83, Est GFR (MDRD) Af Amer 64 07/15/24 15:44: Est GFR (MDRD) Af Amer Cancelled, Est GFR (MDRD) Non-Af 53 L 07/15/24 15:44: Est GFR (MDRD) Non-Af Cancelled, BUN/Creatinine Ratio 14.0 07/15/24 15:44: BUN/Creatinine Ratio Cancelled, Glucose 849 H* 07/15/24 15:44: Glucose Cancelled, Calcium 9.4 07/15/24 15:44: Calcium Cancelled, Phosphorus 7.9 H, Magnesium 3.0 H, Troponin I High Sens 5, TSH 0.546, Free T4 1.10, Free T3 pg/dL 1.6 L 07/15/24 15:46: Urine Opiates Screen NEGATIVE, Urine Methadone Screen NEGATIVE, Ur Barbiturates Screen NEGATIVE, Ur Phencyclidine Scrn NEGATIVE, Ur Amphetamines Screen NEGATIVE, MDMA (Ecstasy) Screen NEGATIVE, U Benzodiazepines Scrn NEGATIVE, Urine Cocaine Screen NEGATIVE, U Cannabinoids Screen NEGATIVE, Ur Drug Screen Comment 07/15/24 15:50: Urine Color Straw, Urine Clarity Clear, Urine pH 6.0, Ur Specific [place] 1.020, Urine Protein 30 H, Urine Glucose (UA) 1000 H, Urine Ketones 150 A*, Urine Occult Blood 25 H, Urine Nitrite Negative, Urine Bilirubin Negative, Urine Urobilinogen Normal, Ur Leukocyte Esterase Negative, Urine RBC 0 SEEN, Urine WBC 0 SEEN, Ur Squamous Epith Cells 0 SEEN, Urine Bacteria 1+, Urine Mucus 0 SEEN 07/15/24 15:58: Lactic Acid 4.6 H*, Acetone Level LARGE H 07/15/24 17:17: POC Glucose > 500 H* 07/15/24 18:00: Sodium 136, Potassium 3.6, Chloride 98, Carbon Dioxide 5.0 L*, Anion Gap 33 H, BUN 29 H, Creatinine 1.71 H, Estim Creat Clear Calc 75.93, Est GFR (MDRD) Af Amer 64, Est GFR (MDRD) Non-Af 53 L, BUN/Creatinine Ratio 17.0, Glucose 834 H*, Calcium 9.4, Ethyl Alcohol < 3.0 07/15/24 18:10: POC Glucose > 500 H* 07/15/24 19:24: POC Glucose > 500 H* 07/15/24 20:40: Lactic Acid Cancelled 07/15/24 21:04: Lactic Acid 4.6 H* 07/15/24 21:18: POC Glucose > 500 H* 07/15/24 22:24: POC Glucose > 500 H* 07/15/24 22:30: Sodium 140, Potassium 3.5, Chloride 106, Carbon Dioxide 6.0 L*, Anion Gap 28 H, BUN 27 H, Creatinine 1.59 H, Estim Creat Clear Calc 81.66, Est GFR (MDRD) Af Amer 69, Est GFR (MDRD) Non-Af 57 L, BUN/Creatinine Ratio 17.0, Glucose 635 H*, Calcium 8.3 L, Phosphorus 6.0 H, Magnesium 2.4, Total Creatine Kinase 164, Triglycerides 873 H, Procalcitonin 0.26 H 07/15/24 23:25: POC Glucose > 500 H* 07/16/24 00:27: POC Glucose 469 H* 07/16/24 01:30: Lactic Acid 1.5 07/16/24 01:35: POC Glucose 352 H 07/16/24 02:35: WBC 19.0 H, RBC 4.29 L, Hgb 11.5 L, Hct 34.3 L, MCV 80.0 D, MCH 26.8 L, MCHC 33.5 D, RDW Std Deviation 40.0, RDW Coeff of Rabia 14.3, Plt Count 398, MPV 9.6, Immature Gran % (Auto) 2.400 H, Neut % (Auto) 45.5 L, Lymph % (Auto) 10.2 L, [place] % (Auto) 6.7, Eos % (Auto) 34.7 H, Baso % (Auto) 0.5, Absolute Neuts (auto) 8.6 H, Absolute Lymphs (auto) 1.93, Nucleated RBC % 0.6, Differential Comment SCANNED, Sodium Cancelled 07/16/24 02:35: Sodium 145, Potassium Cancelled 07/16/24 02:35: Potassium 4.1, Chloride Cancelled 07/16/24 02:35: Chloride 115 H, Carbon Dioxide Cancelled 07/16/24 02:35: Carbon Dioxide 8.0 L*, Anion Gap Cancelled 07/16/24 02:35: Anion Gap 22 H, BUN Cancelled 07/16/24 02:35: BUN 22 H, Creatinine Cancelled 07/16/24 02:35: Creatinine 1.21, Estim Creat Clear Calc Cancelled 07/16/24 02:35: Estim Creat Clear Calc 107.30, Est GFR (MDRD) Af Amer Cancelled 07/16/24 02:35: Est GFR (MDRD) Af Amer 95, Est GFR (MDRD) Non-Af Cancelled 07/16/24 02:35: Est GFR (MDRD) Non-Af 79, BUN/Creatinine Ratio Cancelled 07/16/24 02:35: BUN/Creatinine Ratio 18.2, Glucose Cancelled 07/16/24 02:35: Glucose 323 H, Calcium Cancelled 07/16/24 02:35: Calcium 7.6 L, Total Bilirubin 0.90, Direct Bilirubin 0.13, AST 16, ALT 26, Alkaline Phosphatase 138 H, Total Protein 5.7 L, Albumin 2.9 L, Globulin 2.8 07/16/24 06:32: Sodium 147 H, Potassium 4.1, Chloride 119 H, Carbon Dioxide 11.0 L, Anion Gap 17 H, BUN 19 H, Creatinine 1.31 H, Estim Creat Clear Calc 99.11, Est GFR (MDRD) Af Amer 87, Est GFR (MDRD) Non-Af 72, BUN/Creatinine Ratio 14.5, Glucose 176 H, Calcium 8.2 L Micro: Microbiology 07/15/24 23:30 Mucosa - Nasopharyngeal Respiratory Panel (PCR) - Final ABG Data ABG results: ABG 07/15/24 07/15/24 07/16/24 16:35 23:24 04:08 Specimen Type ART ART ART Sample Site L Radial R Radial R Radial pH 6.80 L* 6.81 L* 7.10 L* Bicarbonate Actual 4.1 L 4.5 L 6.6 L Total CO2 < 5 5 7 Base Excess < -30 L -30 L -23 L O2 Saturation 100 H 97 96 O2 % 50.0 30.0 21.0 ABG pCO2 26.6 L 27.9 L 21.3 L ABG pO2 358 H* 163 H 104 H Hector Test Positive Positive Positive Respiration Rate 22 24 12 O2 Delivery Device Adult Vent Adult Vent Adult Vent Vent Mode AC AC AC Tidal Volume 450.0 450.0 600.0 POC PEEP 5 5 5 Crit Call To/Read Back Yes Yes Yes Blood Gas Notified [place] [place] [facility] Blood Gas Notified Time 16:37:06 23:27:52 04:12:06 Radiography Diagnostic Testing: Radiology Impression Brain CT 07/15/24 15:43 IMPRESSION: No acute intracranial abnormality. Electronically Signed: Jose Alberto Elkins MD at 19:14 EDT , Chest X-Ray 07/15/24 16:45 IMPRESSION: Interval placement of endotracheal tube with tip 2.5 cm above the judi. Interval placement of NG tube with tip in stomach. Otherwise, no change from prior study. Electronically Signed: Jose Alberto Elkins MD at 17:32 EDT , Physical Exam Const no apparent distress and average body habitus; Negative for alert, oriented x3, healthy appearing or well nourished Constitutional Narrative: Young, white male, lying in bed intubated and sedated, spontaneously moving all extremities but no meaningful interaction, responds very little to voice and tactile stimuli, currently appears comfortable HEENT head/scalp atraumatic and moist oral mucous membranes HEENT Narrative: ET tube and OG in place Head and Scalp: normocephalic Eyes PERRL, EOMs intact bilaterally and conjunctivae normal Eyes Narrative: No scleral icterus Neck no lymphadenopathy and supple Neck Narrative: Trachea midline, no thyroid enlargement Resp normal respiratory effort, no retractions, no use of accessory muscles and clear to auscultation bilaterally Auscultation: Negative for crackles, rhonchi or wheezes Cardio regular rhythm, S1 normal heart sound, S2 normal heart sound, no murmurs, no rub, no gallops and no clicks Cardio Narrative: Tachycardia GI normal to inspection, nondistended, normoactive bowel sounds, soft to palpation and non-tender Extremity no clubbing, cyanosis or edema Skin no wounds, skin turgor normal, no jaundice, no petechiae and no mottling Skin Narrative: Bilateral feet with mild macular rash changes-May be related to pressors, right slightly greater than left Neuro moves all extremities Psych Psych Narrative: Unable to assess Assessment & Plan Assessment/Plan (1) Medical non-compliance: (2) Acute respiratory failure: (3) Toxic metabolic encephalopathy: (4) DKA (diabetic ketoacidoses): (5) Lactic acidosis: (6) RADHA (acute kidney injury): PLAN: Plan Shock-multifactorial -Patient was treated with aggressive hydration however remained hypotensive and required initiation of Levophed -Currently requiring 10 mcg/min -Wean as blood pressure allows -Stool studies are pending however not yet obtained as I suspect the patient's not yet had a bowel movement while hospitalized -Respiratory viral panel is unremarkable Strep pneumo and Legionella antigens are pending -Blood, urine, and sputum cultures are all pending -Continue vancomycin and Zosyn -CCM consulted Acute respiratory failure secondary to severe metabolic acidosis/unresponsiveness -Not yet ready for extubation as patient is still markedly acidotic with a pH of 7.1 earlier this morning -pH is improved from 6.8 on presentation -FiO2 has been weaned to 21% -Once mental status improves and patient can protect airway patient can likely be extubated -Continue breathing trials as ordered -Continue sedation as ordered for now however may need to discontinue propofol due to marked hypertriglyceridemia Anion gap metabolic acidosis -Multifactorial secondary to diabetic ketoacidosis as well as lactic acidosis -Slowly resolving -Continue to monitor with serial labs DKA -Patient well-known here and seen frequently due to noncompliance -IV fluids as ordered per DKA protocol -Insulin drip per protocol -N.p.o. -Check serial BMP, magnesium, phosphorus -Once serum bicarb is improved and gap is closed we will transition to subcu insulin Loose stool/diarrhea -Stool studies are pending -Patient does have history of C. difficile colitis previously RADHA secondary to severe dehydration/decreased perfusion secondary to hypotension -Serum creatinine is 1.71 on admission--> currently down to 1.31 -Baseline serum creatinine is 0.9-1.2 -Avoid nephrotoxins as able -No current need for JUMBO OPERATOR Hyperkalemia -Secondary to acidosis -Should improve as acidosis resolves and patient will likely end up hypokalemic and require replacement -Hold home oral supplementation for now -Q4 hour BMP Hypernatremia/hyperchloremia -Likely related to marked normal saline fluid resuscitation -Continue to monitor -May need to add some free water depending on trend over the next day or 2 Leukocytosis -Cultures are pending -Markedly hemoconcentrated on presentation -Continue antibiotics as ordered -Repeat lab in a.m. Chronic anemia -Patient appears to have some iron deficiency based on previous labs -counts higher than baseline due to hemoconcentration -baseline appears to run 8-9.5 -EGD done at a previous (within the last 12 months (hospitalization and he does have severe esophagitis with what appeared to be candidiasis related esophagitis and this was treated GERD -Continue IV PPI History of dysphagia -Will need speech therapy to reevaluate after extubation History of gastroparesis secondary to longstanding history of poorly controlled diabetes -Previously had been on Reglan -May need to reinitiate Reglan once tube feeds started depending throughput DM-1 uncontrolled -Patient noncompliant does not follow regularly with anyone for his diabetes--> 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 and found to have MSSA in his pericardial fluid -no current issues History of PE/DVT -Continue Xarelto Depression -Mirtazapine on hold DVT prophylaxis -Continue Xarelto CODE STATUS -Full code Charges/Coding Visit Charges Inpatient E&M: 40426 Subs Hosp L2
[2024-07-16] MEDS: Insulin Lispro 100 UNIT in 0.9% Normal Saline (100mL Bag) 99 ML CONT INF (08:44)
[2024-07-16 09:18] LABS: Bedside Glucose 167 mg/dL (74-106)
[2024-07-16] MEDS: Dexmedetomidine 400 mcg in 0.9% NS 96 mL 10.7 MCG CONT INF (09:54)
[2024-07-16] MEDS: Menthol/Lanolin/Calamine/Znox 113 GM Tube 1 APPLIC TOPICAL ×4 (09:59→21:27)
[2024-07-16] MEDS: Pantoprazole Sodium 40 MG in 0.9% Normal Saline (100mL MB+) 100 ML 330 MG IV ×2 (09:59→21:22)
[2024-07-16] MEDS: Chlorhexidine 15 ML PO ×2 (10:00→21:23)
[2024-07-16] MEDS: Acetaminophen 650 MG/20 ML UDC GT ×2 (10:07→21:18)
[2024-07-16 11:16] LABS: Bedside Glucose 173 mg/dL (74-106)
[2024-07-16 11:16] LABS: Bedside Glucose 195 mg/dL (74-106)
[2024-07-16 11:16] LABS: Bedside Glucose 228 mg/dL (74-106)
[2024-07-16 11:16] LABS: Bedside Glucose 183 mg/dL (74-106)
[2024-07-16 11:16] LABS: Bedside Glucose 303 mg/dL (74-106)
[2024-07-16 11:16] LABS: Bedside Glucose 268 mg/dL (74-106)
[2024-07-16 11:18] LABS: Bedside Glucose 150 mg/dL (74-106)
[2024-07-16 11:50] LABS: Anion Gap 10 (5-15); BUN 16 mg/dL (7-18); BUN/Creat Ratio 11.2 RATIO (10-20); Calcium,Total 8.1 mg/dL (8.5-10.1); Chloride 119 mmol/L (98-107); Creatinine, Serum 1.43 mg/dL (0.70-1.30); EST Glomerular Filtration Rate 65 mL/min (>60); Est Glom Filt Rate - Afr Amer 78 mL/min (>60); Glucose 149 mg/dL (74-106); Potassium 3.8 mmol/L (3.5-5.1); Sodium Level 147 mmol/L (136-145)
[2024-07-16] MEDS: Vancomycin HCl 1,500 MG in 0.9% Normal Saline (500mL Bag) 500 ML 250 MG IV ×2 (12:04→22:58)
[2024-07-16] MEDS: Norepinephrine 8 MG in 0.9% Normal Saline (250mL Bag) 242 ML 18.8 MG CONT INF (12:04)
[2024-07-16 12:17] LABS: Bedside Glucose 153 mg/dL (74-106)
--- NOTE | 2024-07-16 12:24 | CASEMGMT ---
Readmission Note: Index: 07/08/24-07/10/24. Dx: DKA Readmission: 07/15/24. Dx: Diabetic Coma, DKA During the index admission, the pt was discharged home with his family support. Pt was set up with f/u appts and appropriate diabetic supplies to help manage his DM. On readmission, Pt was admitted to the ICU with RF and DKA. At home, the pt was found unresponsive next to his AC unit and was hypothermic, hypotensive, and bradycardic upon arrival to [facility]. Pt was intubated in the ED. Per ICU Rounds, Pt is currently on VD#2 and the plan is for the pt to start weaning off of the ventilator via breathing trials starting tomorrow morning (07/17). Per chart review, the pt has a history of noncompliance and was also set up with [facility] in the past. During the index admission, the pt was interested in [facility] again, however, [facility] would not accept the pt again. Per the RN CM morning huddle, the pt aunt does not let visitors into the pt home, so HHC is not an option. CM and SW to follow up regarding DC assistance/ needs.
[2024-07-16] MEDS: Potassium Chloride 20mEq/100mL 20 MEQ/100 ML IV.SOLN. 100 MEQ IV BOLUS (13:16)
[2024-07-16 13:44] LABS: Bedside Glucose 123 mg/dL (74-106)
[2024-07-16 13:44] LABS: Bedside Glucose 129 mg/dL (74-106)
[2024-07-16 15:17] LABS: Anion Gap 6 (5-15); BUN 14 mg/dL (7-18); BUN/Creat Ratio 9.8 RATIO (10-20); Calcium,Total 8.2 mg/dL (8.5-10.1); Chloride 121 mmol/L (98-107); Creatinine, Serum 1.43 mg/dL (0.70-1.30); EST Glomerular Filtration Rate 65 mL/min (>60); Est Glom Filt Rate - Afr Amer 78 mL/min (>60); Glucose 89 mg/dL (74-106); Potassium 3.6 mmol/L (3.5-5.1); Sodium Level 146 mmol/L (136-145)
--- NOTE | 2024-07-16 15:39 | PCM.HOSP.N ---
Hospitalist Note Anion gap has been closed x 2 lab draws and bicarb is normalized. Will transition off insulin drip to subcu insulin. Home dose is documented is 35 units twice daily. Will give 18 units twice daily with the first dose being now and then shut off the drip and IV fluids with dextrose in 30 minutes. I have also asked that tube feeds are initiated and transition to goal rate as able. Will repeat next BMP 2 hours after insulin drip and fluids are off. Sliding scale added every 6 hours.
[2024-07-16 16:16] LABS: Bedside Glucose 90 mg/dL (74-106)
[2024-07-16] MEDS: Insulin Glargine-YFGN 100 UNIT/ML Pen 15 UNIT SC ×2 (16:39→21:23)
[2024-07-16] MEDS: Vital AF 1.2 Cal Liquid 1,000 ML 20 ML GT (16:39)
[2024-07-16] MEDS: Dexmedetomidine 400 mcg in 0.9% NS 96 mL 14.9 MCG CONT INF ×2 (16:50→23:00)
[2024-07-16] MEDS: Dextrose 10%-Water 250 ML 999 ML IV (18:58)
[2024-07-16 20:02] LABS: Bedside Glucose 85 mg/dL (74-106)
[2024-07-16 20:02] LABS: Bedside Glucose 108 mg/dL (74-106)
[2024-07-16 20:14] LABS: Bedside Glucose 157 mg/dL (74-106)
[2024-07-16 20:23] LABS: Anion Gap 9 (5-15); BUN 11 mg/dL (7-18); BUN/Creat Ratio 8.5 RATIO (10-20); Calcium,Total 7.9 mg/dL (8.5-10.1); Chloride 119 mmol/L (98-107); Creatinine, Serum 1.29 mg/dL (0.70-1.30); EST Glomerular Filtration Rate 73 mL/min (>60); Est Glom Filt Rate - Afr Amer 88 mL/min (>60); Estimated Creatinine Clearance 100.65 ml/min; Glucose 165 mg/dL (74-106); Potassium 3.2 mmol/L (3.5-5.1); Sodium Level 146 mmol/L (136-145)
[2024-07-16 22:30] LABS: Anion Gap 12 (5-15); BUN 11 mg/dL (7-18); BUN/Creat Ratio 8.5 RATIO (10-20); Calcium,Total 7.9 mg/dL (8.5-10.1); Chloride 118 mmol/L (98-107); Creatinine, Serum 1.29 mg/dL (0.70-1.30); EST Glomerular Filtration Rate 73 mL/min (>60); Est Glom Filt Rate - Afr Amer 88 mL/min (>60); Estimated Creatinine Clearance 100.65 ml/min; Glucose 231 mg/dL (74-106); Potassium 3.5 mmol/L (3.5-5.1); Sodium Level 145 mmol/L (136-145)
[2024-07-16] MEDS: Potassium Chloride 10mEq/100mL 10 MEQ/100 ML IV.SOLN. 100 MEQ IV BOLUS ×2 (22:30→23:25)
[2024-07-16] MEDS: Norepinephrine 8 MG in 0.9% Normal Saline (250mL Bag) 242 ML 15 MG CONT INF (23:54)
[2024-07-17] VITALS (80 sets, daily range): BP systolic 88–131; BP diastolic 38–84; PULSE 85–128; RESP 11–99; TEMP 37.2–38.6; O2SAT 21–100; BMI 25.7
[2024-07-17] MEDS: fentaNYL drip 100 ML 10 MCG CONT INF (00:24)
[2024-07-17] MEDS: Potassium Chloride 10mEq/100mL 10 MEQ/100 ML IV.SOLN. 100 MEQ IV BOLUS ×2 (00:24→01:28)
[2024-07-17] MEDS: Insulin Lispro 100 UNIT/ML INSULN.PEN SC ×3 (00:50→11:16)
[2024-07-17 01:03] LABS: Bedside Glucose 197 mg/dL (74-106)
[2024-07-17] MEDS: Ondansetron 4 MG/2 ML Vial IV ×2 (02:33→11:14)
--- NOTE | 2024-07-17 04:00 | NURSING ---
Patient was receiving a bath that began at 0330. Patient was laid flat, blood pressure and mean arterial pressures dropped below 65 during bath time, turning, adjusting cuff and laying flat. Allowed blood pressure to stabilize until was readjusted and head of bed was elevated.
[2024-07-17] MEDS: Piperacil/Tazobactam 3.375 GM in 0.9% Normal Saline (50mL MB+) 50 ML IV ×3 (05:02→21:02)
[2024-07-17] MEDS: Enoxaparin 40 MG/0.4 ML Syringe SC (05:03)
[2024-07-17] MEDS: 0.9% Saline Lock 10 ML Syringe IV ×2 (05:11→11:16)
[2024-07-17 05:20] LABS: Absolute Lymphocyte Count 2.13 X10^3/uL (0.83-4.51); Absolute Neutrophil Count 6.5 X10^3/uL (2.0-7.7); Basophil# 0.08 X10^3/uL; Basophil% 0.8 % (0-1); Eosinophil# 0.12 X10^3/uL; Eosinophils% 1.2 % (0-5); Hematocrit 31.5 % (40-54); Hemoglobin 10.4 g/dL (13.0-16.5); Lymphocyte # 2.13 X10^3/ul (0.83-4.51); Lymphocyte % 20.6 % (19-41); Mean Corpuscular Hgb 26.3 pg (27.0-32.0); Mean Corpuscular Volume 79.7 fL (80-94); Mean Platelet Vol. 9.3 fl (6.2-12.0); Monocyte# 1.33 X10^3/uL; Monocyte% 12.9 % (0-10); NRBC Flagged by Analyzer 0.2 % (0-5); Neutrophil # 6.49 X10^3/uL (2.7-7.7); Neutrophil % 62.7 % (47-70); Platelet Count 258 K/mm3 (150-450); RBC Distribution Width CV 16.2 % (11.6-14.6); RBC Distribution Width SD 45.9 fl (35.1-43.9); Red Blood Count 3.95 M/mm3 (4.6-6.2); White Blood Count 10.3 K/mm3 (4.4-11.0)
[2024-07-17] MEDS: Vital AF 1.2 Cal Liquid 1,000 ML 35 ML GT (05:21)
[2024-07-17 05:30] LABS: Bedside Glucose 330 mg/dL (74-106)
[2024-07-17 05:49] LABS: Anion Gap 11 (5-15); BUN 10 mg/dL (7-18); BUN/Creat Ratio 7.5 RATIO (10-20); Calcium,Total 7.9 mg/dL (8.5-10.1); Chloride 114 mmol/L (98-107); Creatinine, Serum 1.34 mg/dL (0.70-1.30); EST Glomerular Filtration Rate 70 mL/min (>60); Est Glom Filt Rate - Afr Amer 85 mL/min (>60); Estimated Creatinine Clearance 96.89 ml/min; Glucose 351 mg/dL (74-106); Magnesium 1.5 mg/dL (1.6-2.6); Phosphorus 1.6 mg/dL (2.5-4.9); Potassium 4.1 mmol/L (3.5-5.1); Sodium Level 142 mmol/L (136-145)
--- NOTE | 2024-07-17 06:14 | PN.CC_ITS ---
Assessment & Plan Assessment/Plan (1) Diabetic ketoacidosis: QUALIFIERS: Diabetes mellitus complication detail: without coma D iabetes mellitus type: type 1 Qualified Code(s): E10.10 - Type 1 diabetes mellitus with ketoacidosis without coma (2) Sepsis: QUALIFIERS: Sepsis acute organ dysfunction status: without acute organ dysfunction Sepsis type: sepsis due to unspecified organism Qualified Code(s): A41.9 - Sepsis, unspecified organism PLAN: Plan RECOMMENDATIONS: 1. Proceed with a trial of extubation this morning. 2. Once extubated, wean supplemental oxygen to maintain saturations at or above 90%. 3. Additional titration of long-acting insulin as needed. 4. Aggressive electrolyte repletion. 5. Continue vasopressor support to maintain a mean arterial pressure at or above 65 mmHg. 6. Speech therapy evaluation prior to advancement of diet. 7. Antimicrobials, pending finalized culture data. IMPRESSIONS: 1. Acute hypoxemic respiratory failure The patient was initially intubated in the emergency department for airway protection in the setting of significant metabolic derangements. He has nothing to suggest an underlying pulmonary infection on chest x-ray. With correction of the patient's underlying metabolic derangements, the patient was able to be extubated on the morning of July 17. Recommend encouraging incentive spirometer use while in bed and mobilizing patient as tolerated. 2. Multifactorial shock While sepsis is certainly a possibility, no definitive source of infection has yet to be identified. I do suspect that his presenting hypotension and need for vasopressor support is likely due to profound intravascular volume depletion in the setting of DKA. The patient continues to receive gentle IV fluid hydration, pending advancement of his diet. He will be maintained on vasopressor support, for now, to maintain a mean arterial pressure at or above 65 mmHg. Plan to continue empiric antibiotics, pending finalized culture results. 3. Severe diabetic ketoacidosis Resolved. The patient has a longstanding history of medical noncompliance resulting in frequent hospitalizations for DKA. The patient was medically managed with continuous insulin and IV fluid resuscitation. He has been transitioned to basal and sliding scale insulin coverage, all of which will be continued. 4. Acute metabolic encephalopathy Improved. Secondary to #3. The patient's mentation has improved with medical therapy. 5. Acute kidney injury Improved. Likely prerenal in etiology in the setting of DKA and hypotension. The patient's creatinine has improved with volume expansion. Continue to monitor urine output for now. There is no current indication for renal replacement therapy. 6. History of medical noncompliance/history of dysphagia with gastroparesis in the setting of diabetes mellitus/history of VTE/depression Complicates care, management, recovery and prognosis. Continue medical management as noted above. The patient will require PT evaluation once medically stabilized. TIME: 32 minutes of critical care time, independent of procedures, was spent addressing the patient's acute hypoxemic respiratory failure, multifactorial shock, severe diabetic ketoacidosis, acute metabolic encephalopathy, acute kidney injury, review of all data and collaboration with the care team. Subjective Subjective The patient was seen and examined at the bedside this morning. Events from the last 24 hours have been reviewed. The patient was febrile overnight with a Tmax of 101.5 ?F. The patient remains on Levophed at 5 mcg/min to maintain hemodynamic stability. White blood cell count has normalized. Hemoglobin this morning was noted to be 10.4 g/dL. Chemistry profile was notable for a bicarbonate of 17 and creatinine of 1.34. Anion gap remains closed. Phosphorus is low at 1.6 with a magnesium of 1.5. The patient was tolerant of tube feeding overnight. He passed his spontaneous breathing trial this morning without complication. Objective Data Objective Data The patient's most recent lab work, culture data and imaging studies have all been personally reviewed. Respiratory viral panel was negative. Blood, urine and sputum cultures are pending. Vital Signs: Vital Signs Temp Pulse Resp BP Pulse Ox O2 Del Method FiO2 100.9 F H 92 17 110/56 L 100 Mechanical Ventilator 21 07/17/24 05:00 07/17/24 05:00 07/17/24 05:00 07/17/24 05:00 07/17/24 05:00 07/17/24 05:48 07/17/24 05:48 Oxygen Delivery Method Mechanical Ventilator Weight: 194 lb 3.636 oz Body Mass Index (BMI) 25.7 Intake & Output: Intake and Output for Last 24 Hours 07/15/24 07/16/24 07/17/24 23:59 23:59 23:59 Intake Total 3934.04 / 3940.17 7786.40 / 7812.80 1334.88 / 1334.88 Output Total 2500 / 2500 3800 / 3800 950 / 950 Balance 1434.04 / 1440.17 3986.40 / 4012.80 384.88 / 384.88 Medical Nutrition Assessment Dietitian: Malnutrition Criteria Met Start: 07/16/24 10:14 Freq: Status: Active Protocol: Document 07/16/24 10:14 LO (Rec: 07/16/24 10:14 LO 123) Nutrition Malnutrition Evidence of Malnutrition Exists Yes Malnutrition (severe): Chronic Evidenced By Suboptimal Energy Intake ( Severe),Weight Loss (Severe) Intake Problem Inadequate Oral Intake Etiology related to inability to consume sufficient energy on vent Signs/Symptoms as evidenced by NPO Status Active Problem Clinical Problem Chronic Disease or Condition Related Malnutrition Etiology severe related to chronic disease, poor glycemic control and diabetic non-compliance Signs/Symptoms as evidenced by PO intakes meeting <50% of estimated nutrition needs x3 months and 9.4kg (9.9%) unintentional weight loss in 3 months Status Active Problem Altered Nutrient-Related Laboratory Values Etiology related to diet/lifestyle, medication non-compliance Signs/Symptoms as evidenced by admission glucose 849mg/dL Status Active Problem Recommendation Dietitian Recommendations/Changes Pt will remain NPO on vent. RD will follow for enteral nutrition recommendations if needed. Lab / Micro Data Attestation: I reviewed the patient's lab results. 07/17/24 05:15 07/17/24 05:15 Labs: Laboratory Results - last 24 hr 07/16/24 02:33: POC Glucose 228 H 07/16/24 03:34: POC Glucose 303 H 07/16/24 04:36: POC Glucose 268 H 07/16/24 05:39: POC Glucose 195 H 07/16/24 06:29: POC Glucose 173 H 07/16/24 06:32: Sodium 147 H, Potassium 4.1, Chloride 119 H, Carbon Dioxide 11.0 L, Anion Gap 17 H, BUN 19 H, Creatinine 1.31 H, Estim Creat Clear Calc 99.11, Est GFR (MDRD) Af Amer 87, Est GFR (MDRD) Non-Af 72, BUN/Creatinine Ratio 14.5, Glucose 176 H, Calcium 8.2 L 07/16/24 07:24: POC Glucose 183 H 07/16/24 08:51: POC Glucose 167 H 07/16/24 09:41: POC Glucose 153 H 07/16/24 11:01: POC Glucose 150 H 07/16/24 11:15: Sodium 147 H, Potassium 3.8, Chloride 119 H, Carbon Dioxide 18.0 L, Anion Gap 10, BUN 16, Creatinine 1.43 H, Estim Creat Clear Calc 90.80, Est GFR (MDRD) Af Amer 78, Est GFR (MDRD) Non-Af 65, BUN/Creatinine Ratio 11.2, G lucose 149 H, Calcium 8.1 L 07/16/24 12:02: POC Glucose 129 H 07/16/24 13:14: POC Glucose 123 H 07/16/24 14:05: POC Glucose 108 H 07/16/24 14:55: Sodium 146 H, Potassium 3.6, Chloride 121 H, Carbon Dioxide 19.0 L, Anion Gap 6, BUN 14, Creatinine 1.43 H, Estim Creat Clear Calc 90.80, Est GFR (MDRD) Af Amer 78, Est GFR (MDRD) Non-Af 65, BUN/Creatinine Ratio 9.8 L, Glucose 89, Calcium 8.2 L 07/16/24 14:59: POC Glucose 90 07/16/24 16:01: POC Glucose 85 07/16/24 19:50: Sodium 146 H, Potassium 3.2 L, Chloride 119 H, Carbon Dioxide 18.0 L, Anion Gap 9, BUN 11, Creatinine 1.29, Estim Creat Clear Calc 100.65, Est GFR (MDRD) Af Amer 88, Est GFR (MDRD) Non-Af 73, BUN/Creatinine Ratio 8.5 L, G lucose 165 H, Calcium 7.9 L 07/16/24 19:53: POC Glucose 157 H 07/16/24 22:10: Sodium 145, Potassium 3.5, Chloride 118 H, Carbon Dioxide 15.0 L , Anion Gap 12, BUN 11, Creatinine 1.29, Estim Creat Clear Calc 100.65, Est GFR (MDRD) Af Amer 88, Est GFR (MDRD) Non-Af 73, BUN/Creatinine Ratio 8.5 L, Glucose 231 H, Calcium 7.9 L 07/17/24 00:44: POC Glucose 197 H 07/17/24 05:09: POC Glucose 330 H 07/17/24 05:15: WBC 10.3, RBC 3.95 L, Hgb 10.4 L, Hct 31.5 L, MCV 79.7 L, MCH 26.3 L, MCHC 33.0, RDW Std Deviation 45.9 H, RDW Coeff of Rabia 16.2 H, Plt Count 258, MPV 9.3, Immature Gran % (Auto) 1.800 H, Neut % (Auto) 62.7, Lymph % (Auto) 20.6, [place] % (Auto) 12.9 H, Eos % (Auto) 1.2, Baso % (Auto) 0.8, Absolute Neuts (auto) 6.5, Absolute Lymphs (auto) 2.13, Nucleated RBC % 0.2, Sodium 142, Potassium 4.1, Chloride 114 H, Carbon Dioxide 17.0 L, Anion Gap 11, BUN 10, C reatinine 1.34 H, Estim Creat Clear Calc 96.89, Est GFR (MDRD) Af Amer 85, Est GFR (MDRD) Non-Af 70, BUN/Creatinine Ratio 7.5 L, Glucose 351 H, Calcium 7.9 L, Phosphorus 1.6 L, Magnesium 1.5 L Micro: Microbiology 07/15/24 23:09 Sputum, Induced/Lukens Gram Stain - Final 07/15/24 15:46 Urine Catheter - Youssef Legionella Antigen - Final 07/15/24 15:46 Urine Catheter - Youssef Streptococcus pneumoniae Antigen (M - Final 07/15/24 23:30 Mucosa - Nasopharyngeal Respiratory Panel (PCR) - Final ABG Data ABG results: ABG 07/15/24 07/15/24 07/16/24 16:35 23:24 04:08 Specimen Type ART ART ART Sample Site L Radial R Radial R Radial pH 6.80 L* 6.81 L* 7.10 L* Bicarbonate Actual 4.1 L 4.5 L 6.6 L Total CO2 < 5 5 7 Base Excess < -30 L -30 L -23 L O2 Saturation 100 H 97 96 O2 % 50.0 30.0 21.0 ABG pCO2 26.6 L 27.9 L 21.3 L ABG pO2 358 H* 163 H 104 H Hector Test Positive Positive Positive Respiration Rate 22 24 12 O2 Delivery Device Adult Vent Adult Vent Adult Vent Vent Mode AC AC AC Tidal Volume 450.0 450.0 600.0 POC PEEP 5 5 5 Crit Call To/Read Back Yes Yes Yes Blood Gas Notified [place] [facility] Blood Gas Notified Time 16:37:06 23:27:52 04:12:06 Radiography Diagnostic Testing: Radiology Impression Chest X-Ray 07/16/24 05:55 IMPRESSION: No acute thoracic pathology. Electronically Signed: Osvaldo Singh MD at 7:13 EDT , Physical Exam Const Constitutional Narrative: Remains intubated and mechanically ventilated. Currently tolerating spontaneous mode of mechanical ventilation. HEENT normocephalic, head/scalp atraumatic and moist oral mucous membranes Mouth: endotracheal tube in place and OG tube in place Eyes PERRL and EOMs intact bilaterally Neck supple General: trachea midline Chest inspection of chest normal Resp normal respiratory effort Auscultation: Negative for rales, rhonchi or wheezes Cardio regular rate and regular rhythm GI normal to inspection, nondistended, normoactive bowel sounds Extremity no clubbing, cyanosis or edema Skin no rashes or lesions noted Neuro Neuro Narrative: Alert and following commands appropriately. Psych Mood & Affect: flat affect Charges/Coding Procedures Hospitalists Procedures: 59410 Critical Care 1st Hr
[2024-07-17] MEDS: Potassium Phosphate 30 MM in 0.9% Normal Saline (250mL Bag) 250 ML 42 MM IV (06:46)
[2024-07-17] MEDS: Magnesium Sulfate 2 GM in Dextrose 5%-Water (100mL Bag) 100 ML IV (06:46)
--- NOTE | 2024-07-17 07:10 | NURSING ---
Patient was extubated at 0648 with respiratory therapist, this RN and VERONA Hernández in room. Patient was initially extubated to 2 L NC then transitioned to room air, satting 99%. Restraints were removed at that time and patient is able to tell us his name.
[2024-07-17] MEDS: Lactated Ringers 1,000 ML 75 ML IV ×2 (08:16→21:03)
[2024-07-17 08:52] LABS: Pathologist Review Reviewed
[2024-07-17] MEDS: Pantoprazole Sodium 40 MG in 0.9% Normal Saline (100mL MB+) 100 ML 330 MG IV ×2 (10:13→21:01)
[2024-07-17] MEDS: Insulin Glargine-YFGN 100 UNIT/ML Pen 25 UNIT SC (10:17)
[2024-07-17 11:36] LABS: Bedside Glucose 258 mg/dL (74-106)
[2024-07-17 12:02] LABS: Vancomycin, Trough Level 15.8 ug/mL (5.0-15.0)
[2024-07-17] MEDS: Vancomycin HCl 1,500 MG in 0.9% Normal Saline (500mL Bag) 500 ML 250 MG IV ×2 (12:25→22:52)
--- NOTE | 2024-07-17 12:35 | PCM.RX.CS ---
Consult Antibiotic Management Pharmacy has been consulted to manage selected antibiotic: Vancomycin Type of Intervention Type of Consult: Follow-up Suspected Infection Suspected Infection: Sepsis Prior Doses of Antibiotics Prior Doses of Antibiotics Received/Current Regimen: Vancomycin 1500 mg IV given 07/16 @ 1204, and 07/16 @ 2438 Labs Labs: Sodium 142 mmol/L (136-145) 07/17/24 05:15 Potassium 4.1 mmol/L (3.5-5.1) 07/17/24 05:15 Chloride 114 mmol/L (98-107) H 07/17/24 05:15 Carbon Dioxide 17.0 mmol/L (21.0-32.0) L 07/17/24 05:15 Anion Gap 11 (5-15) 07/17/24 05:15 BUN 10 mg/dL (7-18) 07/17/24 05:15 Creatinine 1.34 mg/dL (0.70-1.30) H 07/17/24 05:15 Est GFR (MDRD) Af Amer 85 mL/min (>60) 07/17/24 05:15 Est GFR (MDRD) Non-Af 70 mL/min (>60) 07/17/24 05:15 BUN/Creatinine Ratio 7.5 RATIO (10-20) L 07/17/24 05:15 Glucose 351 mg/dL (74-106) H 07/17/24 05:15 Vancomycin Trough 15.8 ug/mL (5.0-15.0) H 07/17/24 11:10 Microbiology Microbiology: Microbiology 07/15/24 23:09 Sputum, Induced/Lukens Gram Stain - Final 07/15/24 23:09 Sputum, Induced/Lukens Respiratory Culture - Preliminary Appears to be normal respiratory joaquina. Further studies to follow. 07/15/24 15:46 Urine Catheter - Youssef Legionella Antigen - Final 07/15/24 15:46 Urine Catheter - Youssef Streptococcus pneumoniae Antigen (M - Final 07/15/24 23:30 Mucosa - Nasopharyngeal Respiratory Panel (PCR) - Final Dosing Weight Weight used for dosin kg Estimated Creatinine Clearance Estimated Creatinine Clearance: ~97 Goal Trough Goal Trough: 15-20 mcg/mL Pharmacy Plan for Drug Dosing Pharmacy Plan for Drug Dosing: Vancomycin trough = 15.8, continue current dosing, trough in 2 days Pharmacy Service will continue to monitor and adjust dosing as required. Follow-Up Labs Follow-Up Labs: Trough: Vancomycin Date/Time Labs Ordered Labs to be done on [date and time ordered]: 07/19/24 @ 1100
[2024-07-17] MEDS: Menthol/Lanolin/Calamine/Znox 113 GM Tube 1 APPLIC TOPICAL ×3 (13:37→21:02)
--- NOTE | 2024-07-17 14:10 | CASEMGMT ---
Social Work SW met with pt and attempted to engage in conversation. Pt laying in bed awake and agreeable to see SW. Pt withdrawn and only answering yes and no questions. When asked open ended questions, pt does not respond. Pt did agree to SW speaking with the [facility] to set up services. Phone call to the [facility] to check on pt's services. Pt was seen by a Counselor, John Mason, 1x in March 2023. Pt was scheduled for psychiatry appointment after that but pt did not show up for appointment and did not make any follow up appointments with counselor. Pt has not been assessed for Case Management. VM left for Melissa Caldwell, head of the adult case management department at the [facility] requesting return call to discuss possible options. VERNON/RNCM to continue to follow for discharge planning. BRENT Frank
--- NOTE | 2024-07-17 16:54 | PCM.PN.HOSP ---
Reason for Visit Reason for Visit: Unresponsiveness Subjective Subjective Patient was extubated this morning and now on room air. Mentating well. Awaiting speech therapy to start diet. Still on Levophed with fluctuating requirements. Denies any complaints at this time. States he is not in any pain. Objective Data Objective Data Vital Signs: Vital Signs Temp Pulse Resp BP Pulse Ox O2 Del Method O2 Flow Rate 99.1 F 94 15 131/81 H 100 Room Air 2 07/17/24 16:00 07/17/24 16:18 07/17/24 16:00 07/17/24 16:45 07/17/24 16:00 07/17/24 16:00 07/17/24 06:48 FiO2 21 07/17/24 06:00 Oxygen Flow Rate (L/min) 2 Oxygen Delivery Method Room Air Weight: 88.1 kg Body Mass Index (BMI) 25.7 Intake & Output: Intake and Output for Last 24 Hours 07/15/24 07/16/24 07/17/24 23:59 23:59 23:59 Intake Total 3934.04 / 3940.17 7786.40 / 7812.80 2542.91 / 2542.91 Output Total 2500 / 2500 3800 / 3800 2600 / 2600 Balance 1434.04 / 1440.17 3986.40 / 4012.80 -57.09 / -57.09 Medical Nutrition Assessment Dietitian: Malnutrition Criteria Met Start: 07/16/24 10:14 Freq: Status: Active Protocol: Document 07/16/24 10:14 LO (Rec: 07/16/24 10:14 LO 123) Nutrition Malnutrition Evidence of Malnutrition Exists Yes Malnutrition (severe): Chronic Evidenced By Suboptimal Energy Intake ( Severe),Weight Loss (Severe) Intake Problem Inadequate Oral Intake Etiology related to inability to consume sufficient energy on vent Signs/Symptoms as evidenced by NPO Status Active Problem Clinical Problem Chronic Disease or Condition Related Malnutrition Etiology severe related to chronic disease, poor glycemic control and diabetic non-compliance Signs/Symptoms as evidenced by PO intakes meeting <50% of estimated nutrition needs x3 months and 9.4kg (9.9%) unintentional weight loss in 3 months Status Active Problem Altered Nutrient-Related Laboratory Values Etiology related to diet/lifestyle, medication non-compliance Signs/Symptoms as evidenced by admission glucose 849mg/dL Status Active Problem Recommendation Dietitian Recommendations/Changes Pt will remain NPO on vent. RD will follow for enteral nutrition recommendations if needed. Lab / Micro Data 07/17/24 05:15 07/17/24 05:15 Labs: Laboratory Results - last 24 hr 07/15/24 15:43: Diff Path Review Reviewed 07/16/24 14:05: POC Glucose 108 H 07/16/24 16:01: POC Glucose 85 07/16/24 19:50: Sodium 146 H, Potassium 3.2 L, Chloride 119 H, Carbon Dioxide 18.0 L, Anion Gap 9, BUN 11, Creatinine 1.29, Estim Creat Clear Calc 100.65, Est GFR (MDRD) Af Amer 88, Est GFR (MDRD) Non-Af 73, BUN/Creatinine Ratio 8.5 L, Glucose 165 H, Calcium 7.9 L 07/16/24 19:53: POC Glucose 157 H 07/16/24 22:10: Sodium 145, Potassium 3.5, Chloride 118 H, Carbon Dioxide 15.0 L, Anion Gap 12, BUN 11, Creatinine 1.29, Estim Creat Clear Calc 100.65, Est GFR (MDRD) Af Amer 88, Est GFR (MDRD) Non-Af 73, BUN/Creatinine Ratio 8.5 L, Glucose 231 H, Calcium 7.9 L 07/17/24 00:44: POC Glucose 197 H 07/17/24 05:09: POC Glucose 330 H 07/17/24 05:15: WBC 10.3, RBC 3.95 L, Hgb 10.4 L, Hct 31.5 L, MCV 79.7 L, MCH 26.3 L, MCHC 33.0, RDW Std Deviation 45.9 H, RDW Coeff of Rabia 16.2 H, Plt Count 258, MPV 9.3, Immature Gran % (Auto) 1.800 H, Neut % (Auto) 62.7, Lymph % (Auto) 20.6, [place] % (Auto) 12.9 H, Eos % (Auto) 1.2, Baso % (Auto) 0.8, Absolute Neuts (auto) 6.5, Absolute Lymphs (auto) 2.13, Nucleated RBC % 0.2, Sodium 142, Potassium 4.1, Chloride 114 H, Carbon Dioxide 17.0 L, Anion Gap 11, BUN 10, Creatinine 1.34 H, Estim Creat Clear Calc 96.89, Est GFR (MDRD) Af Amer 85, Est GFR (MDRD) Non-Af 70, BUN/Creatinine Ratio 7.5 L, Glucose 351 H, Calcium 7.9 L, Phosphorus 1.6 L, Magnesium 1.5 L 07/17/24 11:10: Vancomycin Trough 15.8 H 07/17/24 11:14: POC Glucose 258 H Micro: Microbiology 07/15/24 23:09 Sputum, Induced/Lukens Gram Stain - Final 07/15/24 23:09 Sputum, Induced/Lukens Respiratory Culture - Preliminary Appears to be normal respiratory joaquina. Further studies to follow. 07/15/24 15:46 Urine Catheter - Youssef Legionella Antigen - Final 07/15/24 15:46 Urine Catheter - Youssef Streptococcus pneumoniae Antigen (M - Final 07/15/24 23:30 Mucosa - Nasopharyngeal Respiratory Panel (PCR) - Final Physical Exam Const alert, oriented x3, no apparent distress and average body habitus; Negative for healthy appearing or well nourished Constitutional Narrative: Young, white male, sitting up in bed, watching television, extubated, appears comfortable, nontoxic HEENT head/scalp atraumatic and moist oral mucous membranes HEENT Narrative: Dentition is poor, Mallampati is 1, no thrush Head and Scalp: normocephalic Resp normal respiratory effort, no retractions, no use of accessory muscles and clear to auscultation bilaterally Auscultation: Negative for crackles, rhonchi or wheezes Cardio regular rate, regular rhythm, S1 normal heart sound, S2 normal heart sound, no murmurs, no rub, no gallops and no clicks GI normal to inspection, nondistended, normoactive bowel sounds, soft to palpation and non-tender Extremity no clubbing, cyanosis or edema Skin no wounds, skin turgor normal, no jaundice, no petechiae and no mottling Skin Narrative: Cap refill is 2+ bilateral lower extremities, some erythema noted but it seems to be flow related and possibly related to pressors Neuro oriented x3 and moves all extremities Speech: speech normal Psych affect normal Psych Narrative: Slightly flattened mood seems depressed Assessment & Plan Assessment/Plan (1) Medical non-compliance: (2) Acute respiratory failure: (3) Toxic metabolic encephalopathy: (4) DKA (diabetic ketoacidoses): (5) Lactic acidosis: (6) RADHA (acute kidney injury): PLAN: Plan Shock-multifactorial -Patient was treated with aggressive hydration however remained hypotensive and required initiation of Levophed -Currently requiring 6 mcg/min -Wean as blood pressure allows -Patient had no further stooling so diarrhea may be related to osmotic diarrhea from markedly high blood sugars -Respiratory viral panel is unremarkable -Strep pneumo and Legionella antigens were unremarkable -Cultures remain pending -Continue vancomycin and Zosyn -CCM following Acute respiratory failure secondary to severe metabolic acidosis/unresponsiveness -Resolved and patient was extubated today and now on room air Anion gap metabolic acidosis -Resolved DKA -Resolved -Transitioned to subcu insulin yesterday afternoon Loose stool/diarrhea -Resolved RADHA secondary to severe dehydration/decreased perfusion secondary to hypotension -Serum creatinine is 1.71 on admission--> currently with slight upward trend to 1.34 -LR at 75 cc an hour added and will recheck tomorrow -Baseline serum creatinine is 0.9-1.2 -Avoid nephrotoxins as able -No current need for COLLIERY CLERK Hyperkalemia -Resolved Hypernatremia/hyperchloremia -Chloride trending down and hypernatremia is resolved -IV fluids as above -Repeat BMP in a.m. Leukocytosis -Resolved Chronic anemia -Currently 10.4 -baseline appears to run 8-9.5 -EGD done at a previous (within the last 12 months (hospitalization and he does have severe esophagitis with what appeared to be candidiasis related esophagitis and this was treated GERD -Continue IV PPI History of dysphagia -Speech therapy has evaluated and recommended a cookie swallow which will be done tomorrow History of gastroparesis secondary to longstanding history of poorly controlled diabetes -Previously had been on Reglan -May need to reinitiate Reglan once tube feeds started depending throughput DM-1 uncontrolled -Patient noncompliant does not follow regularly with anyone for his diabetes--> 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 and not showing up for appointments -A1c was obtained on 04/11/2024 and was 11.0 in the setting of anemia -Have had multiple conversations with the patient with regards to long-term consequences of poorly controlled diabetes -Patient with frequent DKA admissions -Subcu insulin restarted at 50% home dose yesterday with markedly elevated blood sugars today -Increase subcu basal insulin to 25 twice daily (home dose 35 twice daily) -Hold home prandial insulin until patient is able to eat a diet -Continue every 6 hour BG T's with sliding scale coverage -Trend labs to monitor for recurrence of DKA Suspect severe malnutrition -Dietitian following -Will likely need supplements once p.o. diet can be initiated History of pericarditis/pericardial infection -At the end of 2021 he was admitted to [facility] and found to have MSSA in his pericardial fluid -no current issues History of PE/DVT -Continue Xarelto Depression -Mirtazapine on hold DVT prophylaxis -Continue Xarelto CODE STATUS -Full code Charges/Coding Visit Charges Inpatient E&M: 92424 Subs Hosp L2
[2024-07-17 17:40] LABS: Bedside Glucose 140 mg/dL (74-106)
[2024-07-17 21:31] LABS: Bedside Glucose 151 mg/dL (74-106)
[2024-07-17] MEDS: 0.9% Normal Saline (250mL Bag) 250 ML 15 ML IV (23:14)
[2024-07-17 23:17] LABS: Bedside Glucose 134 mg/dL (74-106)
[2024-07-18] VITALS (17 sets, daily range): BP systolic 99–120; BP diastolic 56–77; PULSE 88–112; RESP 12–23; TEMP 36.5–37.2; O2SAT 97–100; BMI 26.2
[2024-07-18] MEDS: Piperacil/Tazobactam 3.375 GM in 0.9% Normal Saline (50mL MB+) 50 ML IV (05:45)
[2024-07-18] MEDS: Enoxaparin 40 MG/0.4 ML Syringe SC (05:45)
[2024-07-18] MEDS: 0.9% Normal Saline (250mL Bag) 250 ML 15 ML IV (05:49)
[2024-07-18 06:14] LABS: Absolute Lymphocyte Count 1.93 X10^3/uL (0.83-4.51); Absolute Neutrophil Count 4.2 X10^3/uL (2.0-7.7); Basophil# 0.06 X10^3/uL; Basophil% 0.9 % (0-1); Eosinophils% 1.4 % (0-5); Hematocrit 27.8 % (40-54); Hemoglobin 9.5 g/dL (13.0-16.5); Lymphocyte # 1.93 X10^3/ul (0.83-4.51); Lymphocyte % 27.5 % (19-41); Mean Corp Hgb Conc 34.2 g/dL (32-36); Mean Corpuscular Hgb 26.8 pg (27.0-32.0); Mean Corpuscular Volume 78.5 fL (80-94); Mean Platelet Vol. 8.9 fl (6.2-12.0); Monocyte# 0.73 X10^3/uL; Monocyte% 10.4 % (0-10); NRBC Flagged by Analyzer 0 % (0-5); Neutrophil # 4.15 X10^3/uL (2.7-7.7); Neutrophil % 58.9 % (47-70); Platelet Count 203 K/mm3 (150-450); RBC Distribution Width CV 15.4 % (11.6-14.6); RBC Distribution Width SD 43.9 fl (35.1-43.9); Red Blood Count 3.54 M/mm3 (4.6-6.2)
[2024-07-18 06:18] LABS: Bedside Glucose 81 mg/dL (74-106)
[2024-07-18 07:55] LABS: Anion Gap 3 (5-15); BUN 4 mg/dL (7-18); BUN/Creat Ratio 4.8 RATIO (10-20); Calcium,Total 8.1 mg/dL (8.5-10.1); Chloride 110 mmol/L (98-107); Creatinine, Serum 0.83 mg/dL (0.70-1.30); EST Glomerular Filtration Rate 122 mL/min (>60); Est Glom Filt Rate - Afr Amer 148 mL/min (>60); Estimated Creatinine Clearance 156.43 ml/min; Glucose 88 mg/dL (74-106); Magnesium 1.6 mg/dL (1.6-2.6); Phosphorus 1.6 mg/dL (2.5-4.9); Potassium 2.9 mmol/L (3.5-5.1); Sodium Level 141 mmol/L (136-145)
--- NOTE | 2024-07-18 08:48 | ST.MBS ---
Modified Barium Swallow Patient Information Study Date: 07/18/24 Study Time: 09:00 Direct Billable Minutes: 100 Total Minutes procedure & reportin Diagnosis: DKA E11.10; Acute respiratory failure J96.00 Referring Physician: Pb Momin Reason for Referral: Objectively assess swallow function, assess risk for aspiration, and determine recommendations for least restrictive diet textures and compensatory strategies to improve safety of swallow. Medical History: PMH: poorly controlled type 1 DM with multiple episodes of DKA , pericardial infection with effusion s/p pericardial window in 07/2022, asthma, DVT, GERD, medical noncompliance, recurrent pulmonary embolism, severe protein calorie malnutrition, [place] grade D esophagitis, [place] esophagitis, Gastroparesis, hypokalemia, kidney disease, psychosocial problem, non-smoker. Patient presented to [facility] ED 07/15/2024 w/ history of being found unresponsive next to his AC unit noted to be very hypothermic, hypotensive, and bradycardic upon initial evaluation prompting immediate transition to the ED. Family notes that he has had persistent loose stool, abdominal cramping, and poor appetite. Patient had to be intubated in the ED when his BP became 55/48. He was admitted to ICU for further management of acute respiratory failure, toxic metabolic encephalopathy, DKA, lactic acidosis, and RADHA amongst other comorbidities. He was extubated 07/17/2024 and recommended NPO w/ ST consult prior to diet advancement. BSE completed 07/17/2024. Nonproductive coughing episode prior to trials; however, during trials of thin and pudding he had no overt s/s of aspiration. CLINICAL INFORMATICS SPEC recommended NPO, sips and chips after oral care w/ distant supervision, meds whole in . Due to recent extubation and hx of silent aspiration (see details below), CLINICAL INFORMATICS SPEC recommended MBSS prior to diet advancement to further assess aspiration risk and swallow function prior to diet advancement. Patient is familiar to this ST department due to hx of dysphagia. He had MBSS due to admission at [facility] in September of 2023 for DKA. During stay, he began coughing w/ food/drink, and he was referred for ST consult. MBSS on 09/17/2023 revealed severe oropharyngeal dysphagia with SILENT aspiration of thin, nectar, and pudding. He was made NPO and recommended for GI consult due to tight upper esophageal sphincter. EGD 09/18/2023 revealed [place] Grade D erosive esophagitis with bleeding, candidiasis, benign-appearing esophageal stenosis - dilated. CLINICAL INFORMATICS SPEC repeated MBSS on 09/19/2024 and patient had mild oropharyngeal dysphagia with silent aspiration 1X w/ thin liquids via straw and recommendations for regular textures / thin liquids w/ the following aspiration precautions: Small Bites, Small Sips, No Straws, Slow Rate, Sitting upright and Remain sitting upright for 30 minutes after PO intake. He followed w/ ST during acute stay and was recommended for ST after hospitalization. He attended OP ST following this hospitalization for 3 visits for oropharyngeal strengthening, ongoing assessment of diet tolerance, and education in recommended compensatory strategies prior to not returning for additional ST. Current Diet Ordered: NPO Dentition: Natural Teeth and Decay Mental Status: WNL Respiratory Status: Oxygenating on Room Air Penetration-Aspiration Scale Penetration-Aspiration Scale: OBJECTIVE ASSESSMENT OF SWALLOW FUNCTION (QUANTITATIVE ? PER TRIAL): PENETRATION / ASPIRATION SCALE (ARROYO): 1 = does not enter airway 2 = enters airway/above vocal folds/ejected 3 = enters airway/above vocal folds/not ejected 4 = enters airway/contacts vocal folds/ejected 5 = enters airway/contacts vocal folds/not ejected 6 = enters airway/below vocal folds/ejected 7 = enters airway/below vocal folds/not ejected despite effort 8 = enters airway/below vocal folds/no effort VIDEOFLOROSCOPIC SCALE SCORE (ARROYO): Grade I = aspiration of material that has penetrated into the laryngeal vestibule, intact cough reflex Grade II = aspiration < 10 % of the bolus, intact cough reflex Grade III = aspiration of < 10 % of the bolus, reduced cough reflex or aspiration of > 10 % of the bolus, intact cough reflex Grade IV = aspiration of > 10 % of the bolus, reduced cough reflex Penetration-Aspiration Scale Score Thin Liquid via teaspoon: Result: 1= does not enter airway Thin Liquid via teaspoon Trial 2: Result: 3= enters airways/above vocal folds/not ejected Thin Liquid via small single sip: cup: Result: 3= enters airways/above vocal folds/not ejected [place] Thick Liquid via small single sip: cup: Result: 1= does not enter airway Pudding via teaspoon: Result: 1= does not enter airway 1/2 Cookie: Result: 1= does not enter airway Thin Liquid via single sip: straw: Result: 1= does not enter airway Thin Liquid via sequential sips: cup: Result: 3= enters airways/above vocal folds/not ejected Thin Liquid via small single sip: cup Effortful swallow: Result: 1= does not enter airway Oral Phase Labial Seal: No Labial Escape Tongue Control During Bolus Hold: Posterior escape of less than half of bolus Bolus Preparation/Mastication: Timely and efficient chewing and mashing Bolus Transport/Lingual Motion: Delayed initiation of tongue motion Oral Residue: Residue collection on oral structures Pharyngeal Phase Initiation of Pharyngeal Swallow: Bolus head at posterior laryngeal surgace of epiglottis Soft Palate Elevation: Trace column of contrast/air between soft palate and pharyngeal wall Laryngeal Elevation: Partial superior movement thyroid cart/partial apprx aryt-epig petiole Anterior Hyoid Excursion: Partial anterior movement Epiglottic Movement: Complete inversion Laryngeal Vestibule Closure at Height of Swallow: Incomplete; narrow column of air/contrast in laryngeal vestibule Pharyngoesophageal Segment Opening: Parital distension and partial duration; parital obstruction of flow Tongue Base Retraction: Trace column of contrast between tongue base & post. pharyngeal wall Pharyngeal Residue: Trace residue within or on pharyngeal structures Esophageal Phase Esophageal Clearance: Esophageal retention w/ retrograde flow through pharyngoesophageal seg (trace retention in UES ) Diagnosis/Impression Diagnosis: Mild oropharyngeal dysphagia R13.12 Impression: The oral phase is primarily marked by... -Mildly decreased bolus control with posterior loss of <1/2 of thin liquids to the posterior surface of the epiglottis prior to swallow onset. -Mild oral residue, which fully cleared w/ a second swallow as needed. The pharyngeal phase is primarily marked by... -Mildly delayed swallow onset. -Decreased airway closure due to decreased anterior hyoid excursion and laryngeal elevation. -Trace laryngeal penetration of thin liquids, which does not reliably eject. Effortful swallow and intermittent cough and re-swallow are most effective in decreasing aspiration risk. No aspiration observed. The esophageal phase is primarily marked by... -Trace esophageal retention of thin liquids in UES and upper esophagus w/ min retrograde flow to the pyriforms. Recommendations Diet: Regular Textures and Thin Liquids Comment: Medications whole in applesauce Compensatory Strategies: Small Bites, Small Sips (Hard/Effortful Swallows, Intermittent Cough and Re-swallow), Slow Rate (Sips One at a Time), Sitting upright and Remain sitting upright for 30 minutes after PO intake Supervision: Distant Supervision Recommend Repeat Modified Barium Swallow: TBD Need for Skilled Speech Therapy Services: Yes Comment: -Train the patient in use of strategies to decrease risk for aspiration. -Ongoing assessment of diet tolerance of recommended textures. -Train the patient in oropharyngeal exercise program to improve bolus control, airway closure, swallow onset, and UES opening (lingual resistance, Ryan, CTAR, Shaker). Education Completed: 1. Described result of evaluation., 2. Pt understands evaluation & agrees with goals and treatment plan. and 7. Pt requires further education on strategies & risks. Status Active ST Patient: Active Contact Information [facility] Speech Therapy:: Melissa Whiteside M.A. [facility]-CLINICAL INFORMATICS SPEC Speech-Language Pathologist [facility] [address] [place] [address] [email or web address] [phone]
--- NOTE | 2024-07-18 08:55 | NURSING ---
Patient left unit to radiology for swallow study
--- NOTE | 2024-07-18 09:34 | VDUE_ITS ---
Reason For Study: Left arm swelling Left Proximal Left jugular vein is spontaneous, widely patent, phasic, with no intraluminal echogenicity noted. Left subclavian vein is spontaneous, widely patent, phasic, with no intraluminal echogenicity noted. Left Arm Left axillary vein is spontaneous, patent, phasic, competent, compressible and demonstrates augmentation. Left brachial vein is compressible. Acute superficial vein thrombosis is noted in the left cephalic vein from prox-distal forearm. Left basilic vein is compressible. Left Lower Arm Left radial vein is compressible. Left ulnar vein is compressible. Patient Safety Preliminary report given to Melissa RHOADES. VL/Venous Duplex US, Unilateral Interpretation Summary Acute superficial vein thrombosis is noted in the left cephalic vein Deep veins of the left upper extremity are patent and compressible segmentally. There is no evidence of deep vein thrombosis. Ordering Physician: [place] Alvarez Referring Physician: Jose Alberto Elise Performed By: Joana Saul RVT ???
--- NOTE | 2024-07-18 09:43 | PCM.PN.TICU ---
Objective Data Objective Data Vital Signs: Vital Signs Last response Temperature 37.2 C 07/18/24 08:00 Temperature Source Core 07/18/24 08:00 Pulse Rate 98 07/18/24 08:00 Respiratory Rate 12 07/18/24 08:00 Respiratory Effort Normal, Non-Labored 07/18/24 04:00 Respiratory Depth Normal 07/18/24 04:00 Respiratory Pattern Normal 07/18/24 04:00 Blood Pressure 107/62 07/18/24 08:00 Blood Pressure Mean 77 07/18/24 08:00 Blood Pressure Source Monitor 07/18/24 08:00 Blood Pressure Position Semi-Fowlers 07/18/24 08:00 Blood Pressure Location Right Arm 07/18/24 08:00 Pulse Ox 99 07/18/24 08:00 Oxygen Delivery Method Room Air 07/18/24 08:00 Oxygen Flow Rate (L/min) 2 07/17/24 06:48 Fraction of Inspired Oxygen (FIO2) 21 07/17/24 06:00 I&O: I&O Last 24 Hours 07/17/24 07/17/24 07/18/24 11:59 23:59 11:59 Intake Total 1705.45 / 3728.85 2022.45 / 3728.85 1534.65 / 1534.65 Output Total 1400 / 3800 1700 / 3800 1300 / 1300 Balance 305.45 / -71.15 322.45 / -71.15 234.65 / 234.65 I&O: Total Stay 07/15/24 15:28 thru 07/18/24 09:08 Intake Total 01710.99 Output Total 07893 Balance 6282.99 Current Meds Ordered / Administered: Current meds ordered / Administered Generic Name Dose Route Start Last Admin Trade Name Freq PRN Reason Stop Dose Admin Acetaminophen 650 mg 07/15/24 22:13 07/16/24 21:18 Acetaminophen 650 Mg/20 Ml Udc GT 650 mg Q4H PRN PRN Administration Fever, pain 1-10/10 Al Hydrox/Mg Hydrox/Simethicone 30 ml 07/15/24 22:13 Mag /Aluminum/Simeth Wch Udc 30 Ml Oral.Susp PO Q6H PRN PRN Gastric Burning Albuterol Sulfate 2.5 mg 07/15/24 22:13 Albuterol 2.5 Mg/3 Ml Vial.Neb. INHALATION Q2H PRN PRN Dyspnea, wheezing Calamine/Phenol 1 applic 07/15/24 22:13 07/17/24 21:02 Menthol/Lanolin/Calamine/Znox 113 Gm Tube TOPICAL 1 applic 4X/DAY LILLY Administration Protocol Enoxaparin Sodium 40 mg 07/16/24 06:00 07/18/24 05:45 Enoxaparin 40 Mg/0.4 Ml Syringe SC 40 mg DAILY@0600 LILLY Administration Dextrose 250 mls @ 999 mls/hr 07/15/24 22:13 07/16/24 19:43 Dextrose 10%-Water IV Infused .Q16M PRN Infusion Hypoglycemic Protocol Protocol Vancomycin IV-PHARMACY TO DOSE 500 mls @ 250 mls/hr 07/15/24 22:13 1 each/ Sodium Chloride IV PRN PRN Rx to Dose Protocol Pantoprazole Sodium 40 mg/ 110 mls @ 330 mls/hr 07/15/24 22:13 07/17/24 21:32 Sodium Chloride IV Infused Q12 LILLY Infusion Piperacillin Sod/Tazobactam 50 mls @ 12.5 mls/hr 07/15/24 22:13 07/18/24 05:45 Sod 3.375 gm/ Sodium Chloride IV 12.5 mls/hr Q8 LILLY Administration Norepinephrine Bitartrate 8 mg 250 mls @ 9.375 mls/hr 07/15/24 22:13 07/18/24 08:00 / Sodium Chloride CONT INF 0 mcg/min .[id number] LILLY 0 mls/hr Titration Protocol 5 MCG/MIN Sodium Chloride 250 mls @ 15 mls/hr 07/15/24 23:18 07/18/24 08:00 IV 15 mls/hr .[id number] PRN Infusion Additional IVPB Infusion Sodium Chloride 250 mls @ 15 mls/hr 07/15/24 23:18 IV .[id number] PRN Saline Flush Vancomycin HCl 1,500 mg/ 530 mls @ 250 mls/hr 07/16/24 11:30 07/18/24 01:24 Sodium Chloride IV Infused Q12H LILLY Infusion Lactated Ringer's 1,000 mls @ 75 mls/hr 07/17/24 07:15 07/18/24 08:00 IV 75 mls/hr .[id number] LILLY Infusion Sodium Phosphate 40 mmol/ 513.3333 mls @ 62.5 mls/hr 07/18/24 08:28 Sodium Chloride IV 07/18/24 16:40 X1 ONE Insulin Glargine 25 unit 07/17/24 10:00 07/17/24 21:44 Insulin Glargine-Yfgn 100 Unit/Ml Pen SC Not Given BID [facility] Insulin Human Lispro 0 unit 07/16/24 18:00 07/18/24 05:46 Insulin Lispro 100 Unit/Ml Insuln.Pen SC Not Given Q6 [facility] Protocol Ondansetron HCl 4 mg 07/15/24 22:13 07/17/24 11:14 Ondansetron 4 Mg/2 Ml Vial IV 4 mg Q8H PRN PRN Administration NAUSEA/VOMITING Prochlorperazine Edisylate 5 mg 07/15/24 22:13 Prochlorperazine 10 Mg/2 Ml Vial IV Q4H PRN PRN Breakthrough Nausea/Vomiting Sodium Chloride 5 ml 07/15/24 22:13 Sodium Cl For Inhalation 15 Ml Vial.Neb. INHALATION Q5M PRN Suctioning Sodium Chloride 10 - 40 ml 07/15/24 23:18 07/17/24 11:16 0.9% Saline Lock 10 Ml Syringe IV 20 ml UD PRN Administration SALINE FLUSH Vancomycin Protocol 1 lab 07/19/24 09:00 Vancomycin Trough/Random Due MC 07/19/24 13:00 DAILY [facility] Medical Records Data Medical Nutrition Assessment Dietitian: Malnutrition Criteria Met Start: 07/16/24 10:14 Freq: Status: Active Protocol: Document 07/16/24 10:14 LO (Rec: 07/16/24 10:14 LO [id number]) Nutrition Malnutrition Evidence of Malnutrition Exists Yes Malnutrition (severe): Chronic Evidenced By Suboptimal Energy Intake ( Severe),Weight Loss (Severe) Intake Problem Inadequate Oral Intake Etiology related to inability to consume sufficient energy on vent Signs/Symptoms as evidenced by NPO Status Active Problem Clinical Problem Chronic Disease or Condition Related Malnutrition Etiology severe related to chronic disease, poor glycemic control and diabetic non-compliance Signs/Symptoms as evidenced by PO intakes meeting <50% of estimated nutrition needs x3 months and 9.4kg (9.9%) unintentional weight loss in 3 months Status Active Problem Altered Nutrient-Related Laboratory Values Etiology related to diet/lifestyle, medication non-compliance Signs/Symptoms as evidenced by admission glucose 849mg/dL Status Active Problem Recommendation Dietitian Recommendations/Changes Pt will remain NPO on vent. RD will follow for enteral nutrition recommendations if needed. Lab / Micro Data 07/18/24 05:50 07/18/24 05:50 Labs: Laboratory Results - last 24 hr 07/17/24 11:10: Vancomycin Trough 15.8 H 07/17/24 11:14: POC Glucose 258 H 07/17/24 17:20: POC Glucose 140 H 07/17/24 21:01: POC Glucose 151 H 07/17/24 22:58: POC Glucose 134 H 07/18/24 05:44: POC Glucose 81 07/18/24 05:50: WBC 7.0, RBC 3.54 L, Hgb 9.5 L, Hct 27.8 L, MCV 78.5 L, MCH 26.8 L, MCHC 34.2, RDW Std Deviation 43.9, RDW Coeff of Rabia 15.4 H, Plt Count 203, MPV 8.9, Immature Gran % (Auto) 0.900, Neut % (Auto) 58.9, Lymph % (Auto) 27.5, [place] % (Auto) 10.4 H, Eos % (Auto) 1.4, Baso % (Auto) 0.9, Absolute Neuts (auto) 4.2, Absolute Lymphs (auto) 1.93, Nucleated RBC % 0, Sodium 141, Potassium 2.9 L, Chloride 110 H, Carbon Dioxide 28.0, Anion Gap 3 L, BUN 4 L, Creatinine 0.83, Estim Creat Clear Calc 156.43, Est GFR (MDRD) Af Amer 148, Est GFR (MDRD) Non-Af 122, BUN/Creatinine Ratio 4.8 L, Glucose 88, Calcium 8.1 L, Phosphorus 1.6 L, Magnesium 1.6 Micro: Microbiology 07/15/24 23:09 Sputum, Induced/[place] Gram Stain - Final 07/15/24 23:09 Sputum, Induced/[place] Respiratory Culture - Final Streptococcus group G 07/15/24 15:58 Blood Culture (Wb) - Anticubital Right Blood Culture - Preliminary No growth in 48 hours. Assessment and Plan . Assessment and plan: Subjective: No acute events o/n. Overall feels improving. Off pressors since last night Physical Exam: Gen - NAD, fatigued HEENT - MMM. Sclera anicteric Resp - CTAB. Breathing nonlabored CV - RRR. No m/g/r Abd - Soft, NT, ND Ext - No c/c/e. MSK - Mild swelling of L hand Skin - No rashes? Neuro - Grossly nonfocal. Alert and oriented I have reviewed the pertinent vital sign, laboratory, and imaging data. ASSESSMENT: # Acute hypoxic respiratory failure # Shock # DKA ? in setting of poorly controlled type 1 DM # Acute encephalopathy # RADHA # h/o VTE # Chronic anemia # h/o pericardial infection # Depression # Medication noncompliance PLAN: -Previously extubated, now on RA. Monitor breathing -Monitor BP, remains off pressors this AM -SQ insulin, remains off insulin gtt -Empiric vanc/zosyn. f/u Cx -Swallow eval this AM, f/u final results -Cont IVF -Replete electrolytes PRN FEN/GI: PO diet Proph DVT/GI: Lovenox OK to downgrade from ICU now. We will sign off, please call us back if any questions or if clinical worsening The entirety of this encounter was completed via telemedicine
--- NOTE | 2024-07-18 09:45 | NURSING ---
Patient returned to the unit
[2024-07-18] MEDS: Potassium Chloride Oral Tablet 20 MEQ 60 MEQ PO (09:53)
[2024-07-18] MEDS: Pantoprazole Sodium 40 MG in 0.9% Normal Saline (100mL MB+) 100 ML 330 MG IV (09:53)
[2024-07-18] MEDS: Lactated Ringers 1,000 ML 75 ML IV (10:23)
[2024-07-18] MEDS: NORMAL SALINE 0.9% IV (10:23)
[2024-07-18] MEDS: SODIUM PHOS M BASIC D BASIC IV (10:23)
[2024-07-18] MEDS: Vancomycin HCl 1,500 MG in 0.9% Normal Saline (500mL Bag) 500 ML 250 MG IV (11:45)
[2024-07-18] MEDS: Insulin Glargine-YFGN 100 UNIT/ML Pen 25 UNIT SC ×2 (11:45→21:43)
[2024-07-18 12:06] LABS: Bedside Glucose 135 mg/dL (74-106)
--- NOTE | 2024-07-18 13:01 | PCM.PN.HOSP ---
Reason for Visit Reason for Visit: Unresponsiveness Subjective Subjective No issues overnight. Off pressors since 1230 this morning. No complaints other than being hungry at this time and he has just passed his cookie swallow and a diet to be initiated by speech therapy. He is having some left upper extremity edema which is new. He does have previous history of DVT however not on Xarelto at this time. Only on prophylactic Lovenox. Objective Data Objective Data Vital Signs: Vital Signs Temp Pulse Resp BP Pulse Ox O2 Del Method O2 Flow Rate 98.7 F 96 16 112/77 100 Room Air 2 07/18/24 10:00 07/18/24 10:00 07/18/24 10:00 07/18/24 10:00 07/18/24 10:07/18/24 10:00 07/17/24 06:48 FiO2 21 07/17/24 06:00 Oxygen Flow Rate (L/min) 2 Oxygen Delivery Method Room Air Weight: 89.7 kg Body Mass Index (BMI) 26.2 Intake & Output: Intake and Output for Last 24 Hours 07/16/24 07/17/24 07/18/24 23:59 23:59 23:59 Intake Total 7786.40 / 7812.80 3727.90 / 3728.85 1799.65 / 1799.65 Output Total 3800 / 3800 3100 / 3800 1600 / 1600 Balance 3986.40 / 4012.80 627.90 / -71.15 199.65 / 199.65 Medical Nutrition Assessment Dietitian: Malnutrition Criteria Met Start: 07/16/24 10:14 Freq: Status: Active Protocol: Document 07/16/24 10:14 LO (Rec: 07/16/24 10:14 LO 123) Nutrition Malnutrition Evidence of Malnutrition Exists Yes Malnutrition (severe): Chronic Evidenced By Suboptimal Energy Intake ( Severe),Weight Loss (Severe) Intake Problem Inadequate Oral Intake Etiology related to inability to consume sufficient energy on vent Signs/Symptoms as evidenced by NPO Status Active Problem Clinical Problem Chronic Disease or Condition Related Malnutrition Etiology severe related to chronic disease, poor glycemic control and diabetic non-compliance Signs/Symptoms as evidenced by PO intakes meeting <50% of estimated nutrition needs x3 months and 9.4kg (9.9%) unintentional weight loss in 3 months Status Active Problem Altered Nutrient-Related Laboratory Values Etiology related to diet/lifestyle, medication non-compliance Signs/Symptoms as evidenced by admission glucose 849mg/dL Status Active Problem Recommendation Dietitian Recommendations/Changes Pt will remain NPO on vent. RD will follow for enteral nutrition recommendations if needed. Lab / Micro Data 07/18/24 05:50 07/18/24 05:50 Labs: Laboratory Results - last 24 hr 07/17/24 17:20: POC Glucose 140 H 07/17/24 21:01: POC Glucose 151 H 07/17/24 22:58: POC Glucose 134 H 07/18/24 05:44: POC Glucose 81 07/18/24 05:50: WBC 7.0, RBC 3.54 L, Hgb 9.5 L, Hct 27.8 L, MCV 78.5 L, MCH 26.8 L, MCHC 34.2, RDW Std Deviation 43.9, RDW Coeff of Rabia 15.4 H, Plt Count 203, MPV 8.9, Immature Gran % (Auto) 0.900, Neut % (Auto) 58.9, Lymph % (Auto) 27.5, [place] % (Auto) 10.4 H, Eos % (Auto) 1.4, Baso % (Auto) 0.9, Absolute Neuts (auto) 4.2, Absolute Lymphs (auto) 1.93, Nucleated RBC % 0, Sodium 141, Potassium 2.9 L, Chloride 110 H, Carbon Dioxide 28.0, Anion Gap 3 L, BUN 4 L, Creatinine 0.83, Estim Creat Clear Calc 156.43, Est GFR (MDRD) Af Amer 148, Est GFR (MDRD) Non-Af 122, BUN/Creatinine Ratio 4.8 L, Glucose 88, Calcium 8.1 L, Phosphorus 1.6 L, Magnesium 1.6 07/18/24 11:43: POC Glucose 135 H Micro: Microbiology 07/15/24 15:46 Urine Catheter - Youssef Urine Culture - Final Culture exhibits no growth. 07/15/24 23:09 Sputum, Induced/Lukens Gram Stain - Final 07/15/24 23:09 Sputum, Induced/Lukens Respiratory Culture - Final Streptococcus group G 07/15/24 15:58 Blood Culture (Wb) - Anticubital Right Blood Culture - Preliminary No growth in 48 hours. 07/15/24 15:46 Urine Catheter - Youssef Legionella Antigen - Final 07/15/24 15:46 Urine Catheter - Youssef Streptococcus pneumoniae Antigen (M - Final 07/15/24 23:30 Mucosa - Nasopharyngeal Respiratory Panel (PCR) - Final Physical Exam Const alert, oriented x3, no apparent distress and average body habitus; Negative for healthy appearing or well nourished Constitutional Narrative: Young, white male, sitting up in bed, watching television, appears comfortable, nontoxic HEENT head/scalp atraumatic and moist oral mucous membranes HEENT Narrative: Dentition is poor, Mallampati is 2, no thrush Resp normal respiratory effort, no retractions, no use of accessory muscles and clear to auscultation bilaterally Auscultation: Negative for crackles, rhonchi or wheezes Cardio regular rate, regular rhythm, S1 normal heart sound, S2 normal heart sound, no murmurs, no rub, no gallops and no clicks GI normal to inspection, nondistended, normoactive bowel sounds, soft to palpation and non-tender Extremity no clubbing, cyanosis or edema Neuro oriented x3 and moves all extremities Speech: speech normal Psych Psych Narrative: Slightly flattened mood seems depressed Assessment & Plan Assessment/Plan (1) Medical non-compliance: (2) Acute respiratory failure: (3) Toxic metabolic encephalopathy: (4) DKA (diabetic ketoacidoses): (5) Lactic acidosis: (6) RADHA (acute kidney injury): PLAN: Plan Shock-multifactorial -shock is resolved -Patient was treated with aggressive hydration however remained hypotensive and required initiation of Levophed -Pressors have been off for about 12 hours and blood pressures have stabilized -Sputum culture was positive -Blood and urine cultures are negative -Will discontinue vancomycin and Zosyn and transition to oral Augmentin Group G strep pneumonia -Start Augmentin twice daily for another 4 days -Discontinue vancomycin and Zosyn Left upper extremity edema -Previous history of VTE -Check left upper extremity ultrasound RADHA secondary to severe dehydration/decreased perfusion secondary to hypotension -Renal function has normalized is currently 0.8 -Baseline serum creatinine is 0.9-1.2 -Discontinue IV fluids -Avoid nephrotoxins as able -No current need for [employer] Hypokalemia -60 mill equivalents p.o. potassium given -Current magnesium level is 1.6 -Recheck in a.m. Hypophosphatemia -IV replacement given Hypernatremia/hyperchloremia -Resolved Chronic anemia -Currently 9.5 -baseline appears to run 8-9.5 -EGD done at a previous (within the last 12 months (hospitalization and he does have severe esophagitis with what appeared to be candidiasis related esophagitis and this was treated GERD -Transition back to p.o. 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 -A1c was obtained on 04/11/2024 and was 11.0 in the setting of anemia -Have had multiple conversations with the patient with regards to long-term consequences of poorly controlled diabetes -Patient with frequent DKA admissions -Continue basal insulin at 25 units twice daily (home dose 35 units twice daily) -Hold home prandial insulin for now but continue sliding scale -Accu-Cheks as ordered Severe malnutrition -Dietitian following -Dietary supplements added History of pericarditis/pericardial infection -At the end of 2021 he was admitted to [facility] and found to have MSSA in his pericardial fluid -no current issues History of PE/DVT -Patient stopped Xarelto at last discharge Depression -Mirtazapine on hold DVT prophylaxis -Continue Lovenox CODE STATUS -Full code Charges/Coding Visit Charges Inpatient E&M: 33922 [facility] Hosp L3
--- NOTE | 2024-07-18 14:40 | CASEMGMT ---
Social Work SW met with pt to discuss care needs at home. Pt with flat affect but making eye contact with this worker and responding appropriately to questions. SW and pt discussed repeated admissions for pt and continued decline in health. SW spoke with pt regarding the [facility] and getting connected with their case management program to assist pt in managing at home. Pt is agreeable to this and for SW to set up this process. SW also spoke with pt regarding transportation to PCP appointment and pt is agreeable for SW to set up transportation through [employer]. VERNON spoke with Brady at the [facility] and pt will need to schedule a diagnostic assessment and once this is done, go through the process of getting connected with the case management program. Appointment set for the Diagnositc Assessment on 08/18/24 at 8am. Brady to flag pt's case to ensure he is assessed for CM. Transportation arranged with [employer] for 7:40 pick with with rider ID [id number], pt to call [employer] for return ride home with rider ID [id number]. Pt has a PCP appointment with Dr. Elise office on 07/22/24 at 1000. Transportation arranged with [employer] for 9:30 pickup with rider ID [id number], pt to call [employer] for return ride home with rider ID [id number]. All appointment and transportation information added to pt's discharge paper work and VERNON did inform pt. BRENT Frank
[2024-07-18] MEDS: Menthol/Lanolin/Calamine/Znox 113 GM Tube 1 APPLIC TOPICAL (14:58)
[2024-07-18 17:23] LABS: Bedside Glucose 159 mg/dL (74-106)
[2024-07-18] MEDS: Insulin Lispro 100 UNIT/ML INSULN.PEN SC ×2 (17:40→21:42)
[2024-07-18] MEDS: Amox/Clavulanate 875 MG Tablet PO (21:43)
[2024-07-18 22:09] LABS: Bedside Glucose 240 mg/dL (74-106)
[2024-07-19 04:01] VITALS: BP 125/86; PULSE 81; RESP 18; TEMP 36.6; O2SAT 99
[2024-07-19] MEDS: 0.9% Normal Saline (250mL Bag) 250 ML 15 ML IV (04:08)
[2024-07-19] MEDS: Enoxaparin 40 MG/0.4 ML Syringe SC (06:51)
[2024-07-19 07:25] LABS: Absolute Lymphocyte Count 1.12 X10^3/uL (0.83-4.51); Absolute Neutrophil Count 2.8 X10^3/uL (2.0-7.7); Basophil# 0.02 X10^3/uL; Basophil% 0.5 % (0-1); Eosinophil# 0.06 X10^3/uL; Eosinophils% 1.4 % (0-5); Hematocrit 33.3 % (40-54); Hemoglobin 11.1 g/dL (13.0-16.5); Lymphocyte # 1.12 X10^3/ul (0.83-4.51); Lymphocyte % 25.3 % (19-41); Mean Corp Hgb Conc 33.3 g/dL (32-36); Mean Corpuscular Hgb 26.8 pg (27.0-32.0); Mean Corpuscular Volume 80.4 fL (80-94); Mean Platelet Vol. 9.1 fl (6.2-12.0); Monocyte# 0.42 X10^3/uL; Monocyte% 9.5 % (0-10); NRBC Flagged by Analyzer 0 % (0-5); Neutrophil # 2.78 X10^3/uL (2.7-7.7); Neutrophil % 62.8 % (47-70); Platelet Count 207 K/mm3 (150-450); RBC Distribution Width CV 14.9 % (11.6-14.6); RBC Distribution Width SD 43.3 fl (35.1-43.9); Red Blood Count 4.14 M/mm3 (4.6-6.2); White Blood Count 4.4 K/mm3 (4.4-11.0)
[2024-07-19 07:47] LABS: Anion Gap 5 (5-15); BUN 5 mg/dL (7-18); BUN/Creat Ratio 5.6 RATIO (10-20); Calcium,Total 8.5 mg/dL (8.5-10.1); Chloride 112 mmol/L (98-107); Creatinine, Serum 0.89 mg/dL (0.70-1.30); EST Glomerular Filtration Rate 112 mL/min (>60); Est Glom Filt Rate - Afr Amer 136 mL/min (>60); Estimated Creatinine Clearance 145.88 ml/min; Glucose 80 mg/dL (74-106); Magnesium 1.9 mg/dL (1.6-2.6); Phosphorus 3.1 mg/dL (2.5-4.9); Sodium Level 142 mmol/L (136-145)
[2024-07-19 09:00] VITALS: BP 109/76; PULSE 84; RESP 18; TEMP 36.6; O2SAT 99
[2024-07-19] MEDS: Amox/Clavulanate 875 MG Tablet PO (11:17)
[2024-07-19] MEDS: Potassium Chloride Oral Tablet 20 MEQ 60 MEQ PO (11:17)
[2024-07-19] MEDS: Insulin Glargine-YFGN 100 UNIT/ML Pen 25 UNIT SC (11:18)
[2024-07-19] MEDS: Pantoprazole Sodium 40 MG Tablet PO (11:19)
[2024-07-19 12:32] LABS: Bedside Glucose 84 mg/dL (74-106)
[2024-07-19 12:43] LABS: Bedside Glucose 139 mg/dL (74-106)
--- NOTE | 2024-07-19 13:22 | PCM.DC.SUM ---
Providers Date of Admission: 07/15/24 Date of Discharge: 07/19/24 Primary Care Physician: Dr. Christiano Elise MD Consultations 07/15/24 22:13 Consult: Machine Puller / Pulmonary Medicine Routine Consulting Provider: Pulmonary Medicine karis [place] Reason for Consult: Vent management, DKA EMERGENT Consult: No MD Notified: Yes Date Notified: 07/15/24 Time Notified: 21:17 Method of Notification: Text Reason For Visit: UNDIFFERENTIATED SHOCK, DIABETIC COMA, DKA Diagnosis Discharge Diagnosis (1) Medical non-compliance: Status: Acute Code(s): Z91.199 - Patient's noncompliance with other medical treatment and regimen due to unspecified reason (2) Acute respiratory failure: Status: Acute Code(s): J96.00 - Acute respiratory failure, unspecified whether with hypoxia or hypercapnia (3) Toxic metabolic encephalopathy: Status: Acute Code(s): G92.8 - Other toxic encephalopathy (4) DKA (diabetic ketoacidoses): Status: Acute Code(s): E11.10 - Type 2 diabetes mellitus with ketoacidosis without coma (5) Lactic acidosis: Status: Acute Code(s): E87.20 - Acidosis, unspecified (6) RADHA (acute kidney injury): Status: Acute Code(s): N17.9 - Acute kidney failure, unspecified Medications at Discharge Home Medications insulin lispro 100 unit/mL subcutaneous pen (Humalog KwikPen (U-100) Insulin) See Protocol subcut ACHS DIABETES 07/24/22 blood sugar diagnostic (OneTouch Verio test strips) 02/27/23 flash glucose sensor (FreeStyle Niru 14 Day Sensor kit) 02/27/23 insulin glargine-yfgn 100 unit/mL (3 mL) subcutaneous pen 35 unit (0.35 mL) subcut BID #10 pens 07/10/24 pen needle, diabetic 31 gauge x 1/3 #100 ea 07/10/24 amoxicillin 875 mg-potassium clavulanate 125 mg tablet 1 tab PO BID #7 tabs 07/19/24 Hospital Course Operations None Procedures Central line placement, EKG, Intubation, Modified Barium Swallow and - (Chest x-ray/CT brain) Summary of Care Provided Minutes Spent on Discharge: 40 Hospital Course: Mr. Carlton is a 23-year-old type I diabetic who has multiple admissions for DKA who presented to the emergency department [facility] on 02/13/2024 due to unresponsiveness. He had a recent admission here from 07/08/2024 through 07/10/2024 for DKA. 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 He evidently had done okay for couple days after discharge. Family reported he had some persistent loose stool with abdominal cramping and poor appetite. On the day of presentation he was found unresponsive next to the air conditioning unit and noted to be very hypothermic, hypotensive, and bradycardic on arrival to the emergency department. He had significantly altered mental status and was emergently intubated upon arrival. Temperature on presentation was 79 degrees, heart rate was 52, blood pressure was 80/40, respiratory rate 16 oxygen saturations were 100% on room air. CBC showed a marked leukocytosis with a white count of 29.2 and thrombocytosis with a platelet count of 510,000. He is typically anemic at baseline and is hemoglobin was 14.3 indicative of severe hemoconcentration. Chemistry on arrival was markedly abnormal as well having a sodium of 132, potassium 5.8, chloride 95, serum bicarb of 3, serum creatinine of 1.57 with baseline of 1-1.3, blood glucose of 849 and a lactic acid of 4.6. Troponin was normal at 5. Procalcitonin 0.26 and triglyceride 373. TSH was within normal limits. Initial ABG showed a pH of 6.8 with a pCO2 of 26.6 and a pO2 of 350. CT of the brain showed no acute intracranial abnormality and chest x-ray showed no acute abnormalities. He was treated with IV fluids but ultimately did require pressors. Cultures were sent and antibiotics were initiated. Given his requirement for mechanical ventilation and pressors at the time of admission he was admitted to the ICU. He was placed on broad-spectrum antibiotics as well as an insulin drip per DKA protocol. His mental status slowly improved as his DKA resolved and we were able to transition him off of an insulin drip and subcu insulin about 36 hours into his admission. He was then extubated on hospital day 2 07/17/2024. Blood and urine cultures were unremarkable however sputum culture grew group G strep. We suspect that this is aspiration related and he was transition from IV antibiotics to oral Augmentin. He will continue another 3-1/2 days at the time of discharge. After restarting his insulin at his home dose level his blood sugars were well-controlled with no significant hyperglycemia noted. He did have some left upper extremity edema for which we obtained a left upper extremity ultrasound. This showed SVT with no signs of DVT. The patient was eating well and was felt stable for discharge on 07/19/2024. He underwent extensive counseling with regards to insulin compliance and outpatient follow-up. The patient voiced understanding but has done this previously and not followed through with intentions. He was scheduled appointments with his primary care physician as well as endocrinology prior to discharge and he was scheduled appointment at the counseling center at the time of discharge. We have asked him to follow-up with these appointments as scheduled and he was discharged home in stable condition with a prescription for Augmentin on 07/19/2024. Hospital follow-up with his primary care physician is set up for 07/22/2024. Discharge diagnoses: Multifactorial shock-resolved Acute respiratory failure-resolved DKA-resolved Lactic acidosis-resolved Diarrhea-resolved RADHA-resolved Hypernatremia/hyperchloremia-resolved Group G strep pneumonia secondary to aspiration Leukocytosis-resolved Chronic anemia Left upper extremity edema secondary to SVT GERD History of dysphagia History of gastroparesis [id number] Severe malnutrition History of pericarditis/pericardial infection History of PE/DVT Depression Marked medical noncompliance Physical Exam Const alert, oriented x3, no apparent distress and average body habitus; Negative for healthy appearing or well nourished Constitutional Narrative: Young, white male, sitting up in bed, watching television, appears comfortable, nontoxic General Appearance: cooperative, comfortable, well kempt and well developed Exam Limitations: no limitations HEENT normocephalic, head/scalp atraumatic, hearing grossly normal bilaterally and moist oral mucous membranes HEENT Narrative: Dentition is poor, Mallampati is 2, no thrush Eyes PERRL, EOMs intact bilaterally and conjunctivae normal Eyes Narrative: No scleral icterus Neck no lymphadenopathy and supple Neck Narrative: Trachea midline, no thyroid enlargement Resp normal respiratory effort, no retractions, no use of accessory muscles and clear to auscultation bilaterally Auscultation: Negative for crackles, rhonchi or wheezes Cardio regular rate, regular rhythm, S1 normal heart sound, S2 normal heart sound, no murmurs, no rub, no gallops and no clicks GI normal to inspection, nondistended, normoactive bowel sounds, soft to palpation and non-tender Extremity Extremity Narrative: Left upper extremity edema improved, no cyanosis or clubbing Skin no wounds, skin turgor normal, no jaundice, no petechiae and no mottling Neuro oriented x3, moves all extremities and no focal motor deficits Speech: speech normal Psych Psych Narrative: Affect remains flattened mood seems depressed Medical Records Data Medical Nutrition Assessment Dietitian: Malnutrition Criteria Met Start: 07/16/24 10:14 Freq: Status: Active Protocol: Document 07/16/24 10:14 LO (Rec: 07/16/24 10:14 LO 123) Nutrition Malnutrition Evidence of Malnutrition Exists Yes Malnutrition (severe): Chronic Evidenced By Suboptimal Energy Intake ( Severe),Weight Loss (Severe) Intake Problem Inadequate Oral Intake Etiology related to inability to consume sufficient energy on vent Signs/Symptoms as evidenced by NPO Status Active Problem Clinical Problem Chronic Disease or Condition Related Malnutrition Etiology severe related to chronic disease, poor glycemic control and diabetic non-compliance Signs/Symptoms as evidenced by PO intakes meeting <50% of estimated nutrition needs x3 months and 9.4kg (9.9%) unintentional weight loss in 3 months Status Active Problem Altered Nutrient-Related Laboratory Values Etiology related to diet/lifestyle, medication non-compliance Signs/Symptoms as evidenced by admission glucose 849mg/dL Status Active Problem Recommendation Dietitian Recommendations/Changes Pt will remain NPO on vent. RD will follow for enteral nutrition recommendations if needed. Weight / BMI Weight Weight: 89.7 kg Body Mass Index (BMI) 26.2 ABG / Lab / Microbiology Data 07/19/24 06:55 07/19/24 06:55 Laboratory: Laboratory Results - last 24 hr 07/18/24 17:04: POC Glucose 159 H 07/18/24 21:41: POC Glucose 240 H 07/19/24 06:49: POC Glucose 84 07/19/24 06:55: WBC 4.4, RBC 4.14 L, Hgb 11.1 L, Hct 33.3 L, MCV 80.4, MCH 26.8 L, MCHC 33.3, RDW Std Deviation 43.3, RDW Coeff of Rabia 14.9 H, Plt Count 207, MPV 9.1, Immature Gran % (Auto) 0.500, Neut % (Auto) 62.8, Lymph % (Auto) 25.3, [place] % (Auto) 9.5, Eos % (Auto) 1.4, Baso % (Auto) 0.5, Absolute Neuts (auto) 2.8, Absolute Lymphs (auto) 1.12, Nucleated RBC % 0, Sodium 142, Potassium 3.0 L, Chloride 112 H, Carbon Dioxide 25.0, Anion Gap 5, BUN 5 L, Creatinine 0.89, Estim Creat Clear Calc 145.88, Est GFR (MDRD) Af Amer 136, Est GFR (MDRD) Non-Af 112, BUN/Creatinine Ratio 5.6 L, Glucose 80, Calcium 8.5, Phosphorus 3.1, Magnesium 1.9 07/19/24 12:22: POC Glucose 139 H Microbiology: Microbiology 07/15/24 15:46 Urine Catheter - Youssef Urine Culture - Final Culture exhibits no growth. 07/15/24 23:09 Sputum, Induced/Lukens Gram Stain - Final 07/15/24 23:09 Sputum, Induced/Lukens Respiratory Culture - Final Streptococcus group G 07/15/24 15:58 Blood Culture (Wb) - Anticubital Right Blood Culture - Preliminary No growth in 48 hours. 07/15/24 15:46 Urine Catheter - Youssef Legionella Antigen - Final 07/15/24 15:46 Urine Catheter - Youssef Streptococcus pneumoniae Antigen (M - Final 07/15/24 23:30 Mucosa - Nasopharyngeal Respiratory Panel (PCR) - Final D/C Instructions Discharge Diet: 2000 Calorie Control Diet Discharge Activity: Return to Normal Activity Meaningful Use Info Meaningful Use Meaningful Use Diagnoses (Choose all that apply): None applicable Ischemic Stroke Statin Dosing Therapy Reference: STATIN DOSE THERAPY REFERENCE: * Patients > 75 years receive moderate or high dose statin therapy. * Patients 75 years or YOUNGER should receive HIGH intensity statin dose unless contraindicated. You will be required to document reason for non-treatment if statin daily dose does not meet guidelines. HIGH DOSE STATIN THERAPY DAILY Atorvastatin > than or = to 40 mg Rosuvastatin > than or = to 20 mg Amlodipine + Atorvastatin > than or = to 2.5/40 mg Ezetimibe + Simvastatin 10/80 mg Simvastatin 80mg Discharge Plan Admission Admit Date/Time: 07/15/24 20:08 Primary Reason for Your Visit: Unresponsiveness secondary to the severe DKA/aspiration pneumonia Attending Provider: Elizabeth Alvarez Primary Care Provider: Christiano Elise Consulting Providers: Ashley Kapoor; Krishan Olguin; Francisco Chow; Pb Momin; Will Fowler; Brandon Perez; Kristopher Freeman; Laura Melendez; Avinash Pollock; Marky George; Payton Pak; Duke Ramos; Mile,Nader; Irbrian,Billy; Rasheed,Rizwan; Zoila Sheehan; Cem Valentin; Aniceto Danielson; Denny Michele; Judie Jay DISHCLOTH FOLDER Discharge Orders/Prescriptions Prescriptions: New amoxicillin-pot clavulanate 875-125 mg Tablet 1 tab PO BID Qty: 7 0RF Continued insulin lispro [Humalog KwikPen Insulin] 100 unit/mL insulin pen See Protocol subcut [facility] Protocol: 6. Sliding Scale Insulin Custom Condition: mg/dl range Dose/Route: Number of Units Condition: 150-199 Dose/Route: 2 Condition: 200-249 Dose/Route: 4 Condition: 250-299 Dose/Route: 6 Condition: 300-349 Dose/Route: 8 Condition: 350-399 Dose/Route: 10 Condition: 400-449 Dose/Route: 12 Condition: 450-499 Dose/Route: 14 Condition: 500> Instruction: CALL PCP Protocol Text: Custom Sliding Scale (DME) OneTouch Verio test strips Strip See Rx Instructions .ROUTE .MEDSUPPLY Rx Instructions: 4x/day (DME) FreeStyle Niru 14 Day Sensor Kit See Rx Instructions .ROUTE .MEDSUPPLY Rx Instructions: As directed insulin glargine-yfgn 100 unit/mL (3 mL) Insulin Pen 35 unit subcut BID Qty: 10 0RF (DME) pen needle, diabetic 31 gauge x 1/3 needle See Rx Instructions .Route Qty: 100 3RF Rx Instructions: As directed Referrals / Follow Up: [facility] [Group [facility] Physicians] - 08/18/24 8:00 am ([facility] to see you to establish community case management. [employer] will pick you up at 7:40 with rider ID [id number]. Call [employer] to bring you back home with rider ID [id number]) Christiano Elise MD [Primary Care Provider] - 07/22/24 10:00 am ([employer] will pick you and your mom up at 9:30 with rider ID [id number]. Call [employer] for a ride home with rider ID [id number]. Second appointment with Dr. Elise on September 16 at 9:20. Transportation has not been set up yet.) Elise Raymond NP, [facility] [Non-Staff] - 09/11/24 2:45 pm (Correct Address: [address] [place] [address] Transportation has not been set up yet) Disposition Disposition (needs filled in before D/C Order can be placed): Home, Self Care Charges/Coding Visit Charges Inpatient E&M: 86474 Disch Hosp >30min
[2024-07-19 14:36] VITALS: BP 118/82; PULSE 94; RESP 18; TEMP 37.1; O2SAT 100
[2024-07-21 07:41] LABS: Bedside Glucose 54 mg/dL (74-106)
[2024-07-21 07:41] LABS: Bedside Glucose 56 mg/dL (74-106)
== END 2024-07-19 14:52 | disposition home or self-care (01) | DRG 133 ==
LOC: ED 18:06 → ICU 20:53 → MS3 07-18 16:29
PROVIDERS: Admitting Provider Family Medicine; Emergency Provider Emergency Medicine; PCP Family Medicine; Visit Provider Internal Medicine
DX: J96.00 Acute respiratory failure, unspecified whether with hypoxia or hypercapnia (principal); G93.41 Metabolic encephalopathy; G92.8 Other toxic encephalopathy; E10.10 Type 1 diabetes mellitus with ketoacidosis without coma; E43 Unspecified severe protein-calorie malnutrition; R57.9 Shock, unspecified; N17.9 Acute kidney failure, unspecified; J15.4 Pneumonia due to other streptococci; D50.9 Iron deficiency anemia, unspecified; F32.A Depression, unspecified; Z79.4 Long term (current) use of insulin; F41.9 Anxiety disorder, unspecified; K21.9 Gastro-esophageal reflux disease without esophagitis; Z91.199 Patient's noncompliance with other medical treatment and regimen due to unspecified reason; Z86.718 Personal history of other venous thrombosis and embolism; Z86.711 Personal history of pulmonary embolism; Z68.26 Body mass index [BMI] 26.0-26.9, adult
CPT/HCPCS: 31500; 31720; 36415; 36556; 36600; 51702; 70450; 71045; 74230; 80048; 80076; 80202; 80307; 81001; 81002; 82009; 82077; 82550; 82803; 82962; 83605; 83735; 84100; 84145; 84439; 84443; 84478; 84481; 84484; 85025; 87040; 87070; 87077; 87086; 87205; 87449; 87633; 92610; 92611; 93005; 93971; 94002; 94003; 94660; 97161; 97162; 97166; 97802; 99252; 99285; J7030; J7040; J7050; J7120; A4216; G0463; J0612; J2405; J7799

== ENCOUNTER 2024-10-09 18:16 | Inpatient (IN) | payer MEDICAID, SELFPAY ==
[2024-10-09] VITALS (13 sets, daily range): BP systolic 87–113; BP diastolic 39–70; PULSE 118–129; RESP 16–23; TEMP 36.1–36.8; O2SAT 98–100; BMI 25.2; BMI 24.1
[2024-10-09] MEDS: NORMAL SALINE 999 ML IV (18:38)
[2024-10-09 18:55] LABS: Blood Gas Specimen Type VEN; O2 Delivery Device Room Air; SITE Not entered; VBG BASE EXCESS -25 mmol/L (-1.0-3.5); VBG Bicarbonate 6 mmol/L (22-26); VBG PO2 66 mmHg (25-40); VBG SO2 83 % (50-70); VBG TCO2 7 mmol/L (23-33); VBG pCO2 21.5 mmHg (41-51); VBG pH 7.05 (7.32-7.42)
[2024-10-09 18:55] LABS: Absolute Lymphocyte Count 1.43 X10^3/uL (0.83-4.51); Absolute Neutrophil Count 15.6 X10^3/uL (2.0-7.7); Basophil# 0.07 X10^3/uL; Basophil% 0.4 % (0-1); Hematocrit 33.8 % (40-54); Hemoglobin 10.8 g/dL (13.0-16.5); Lymphocyte # 1.43 X10^3/ul (0.83-4.51); Lymphocyte % 7.8 % (19-41); Mean Corpuscular Hgb 24.8 pg (27.0-32.0); Mean Corpuscular Volume 77.7 fL (80-94); Mean Platelet Vol. 10.8 fl (6.2-12.0); Monocyte# 1.23 X10^3/uL; Monocyte% 6.7 % (0-10); NRBC Flagged by Analyzer 0 % (0-5); Neutrophil # 15.55 X10^3/uL (2.7-7.7); Neutrophil % 84.7 % (47-70); Platelet Count 398 K/mm3 (150-450); RBC Distribution Width CV 13.9 % (11.6-14.6); RBC Distribution Width SD 39.3 fl (35.1-43.9); Red Blood Count 4.35 M/mm3 (4.6-6.2); White Blood Count 18.4 K/mm3 (4.4-11.0)
[2024-10-09 18:56] LABS: Bacteria 0 SEEN /hpf (None Seen); Mucous, Urine 0 SEEN /hpf (<or=2+); Red Blood Cells-Urine 0 SEEN /hpf (0-5); Squamous Epithelial Cells - UA 0 SEEN /hpf (0-5); White Blood Cells 0 SEEN /hpf (0-5)
[2024-10-09 19:04] LABS: International Normalized Ratio 1.2; Partial Thromboplast Time 22.1 Seconds (24.1-36.2); Prothrombin Time (Protime)PT. 15.5 SECONDS (11.7-14.9)
[2024-10-09 19:08] LABS: Color, Urine Straw (Yellow); Glucose, Dipstick 1000 mg/dl (Normal); Leukocyte Esterase-Dipstick Negative /ul (Negative); Nitrite-Dipstick Negative (Negative); Occult Blood-Urine 10 /ul (Negative); Protein-Dipstick 15 mg/dl (Negative); Urine Bilirubin Dipstick Negative (Negative); Urine Clarity Clear (Clear); Urine Urobilinogen Normal (Normal)
[2024-10-09 19:26] LABS: Ketone-Dipstick 150 mg/dl (Negative)
[2024-10-09 19:27] LABS: ALB/GLOB Ratio 1.3 RATIO (0.9-2.4); AST(SGOT) 19 U/L (15-37); Alanine Aminotransfer ALT/SGPT 32 U/L (16-61); Albumin, Serum 4.2 g/dL (3.2-5.0); Alkaline Phosphatase 151 U/L (45-117); Anion Gap 33 (5-15); BUN 33 mg/dL (7-18); BUN/Creat Ratio 14.9 RATIO (10-20); Calcium,Total 9.1 mg/dL (8.5-10.1); Chloride 83 mmol/L (98-107); Creatinine, Serum 2.22 mg/dL (0.70-1.30); EST Glomerular Filtration Rate 39 mL/min (>60); Est Glom Filt Rate - Afr Amer 47 mL/min (>60); Estimated Creatinine Clearance 58.49 ml/min; Globulin 3.2 g/dL (2.2-4.2); Glucose 1204 mg/dL (74-106); Protein, Total 7.4 g/dL (6.4-8.2); Sodium Level 125 mmol/L (136-145)
[2024-10-09 20:09] LABS: Bedside Glucose > 500 mg/dL (74-106)
[2024-10-09] MEDS: Insulin Lispro 100 UNIT in 0.9% Normal Saline (100mL Bag) 99 ML 8.7 UNIT CONT INF ×2 (20:27→22:12)
[2024-10-09] MEDS: Metoclopramide 10 MG/2 ML Vial 5 MG IV (21:20)
[2024-10-09 21:50] LABS: Bedside Glucose > 500 mg/dL (74-106)
[2024-10-09 22:03] LABS: Magnesium 2.5 mg/dL (1.6-2.6); Phosphorus 9.5 mg/dL (2.5-4.9)
[2024-10-09 22:03] LABS: Glucose 1105 mg/dL (74-106)
[2024-10-09] MEDS: 0.9% Normal Saline (1000mL) 1,000 ML 150 ML IV (22:45)
[2024-10-09 22:48] LABS: Reflex Lactate? Y
[2024-10-09 23:14] LABS: Anion Gap 29 (5-15); BUN 36 mg/dL (7-18); BUN/Creat Ratio 16.4 RATIO (10-20); Calcium,Total 8.3 mg/dL (8.5-10.1); Chloride 96 mmol/L (98-107); Creatinine, Serum 2.19 mg/dL (0.70-1.30); EST Glomerular Filtration Rate 40 mL/min (>60); Est Glom Filt Rate - Afr Amer 48 mL/min (>60); Estimated Creatinine Clearance 60.99 ml/min; Glucose 838 mg/dL (74-106); Potassium 3.7 mmol/L (3.5-5.1); Sodium Level 133 mmol/L (136-145)
[2024-10-09 23:16] LABS: Hemoglobin A1c 13.1 % (3.8-5.6)
[2024-10-09 23:43] LABS: Lactic Acid 3.7 mmol/L (0.4-1.9)
[2024-10-10] VITALS (32 sets, daily range): BP systolic 78–115; BP diastolic 41–64; PULSE 107–140; RESP 14–22; TEMP 36.4–37.2; O2SAT 93–100; BMI 24.5
[2024-10-10 00:13] LABS: Glucose 703 mg/dL (74-106)
[2024-10-10] MEDS: 0.9% Normal Saline (1000mL) 1,000 ML 999 ML IV (00:40)
[2024-10-10 01:10] LABS: Glucose 596 mg/dL (74-106)
[2024-10-10 01:58] LABS: Bedside Glucose 464 mg/dL (74-106)
[2024-10-10 02:49] LABS: Hematocrit 29.2 % (40-54); Hemoglobin 10.1 g/dL (13.0-16.5); Mean Corp Hgb Conc 34.6 g/dL (32-36); Mean Corpuscular Hgb 25.3 pg (27.0-32.0); Mean Corpuscular Volume 73.2 fL (80-94); Mean Platelet Vol. 9.6 fl (6.2-12.0); Platelet Count 378 K/mm3 (150-450); RBC Distribution Width SD 37.3 fl (35.1-43.9); Red Blood Count 3.99 M/mm3 (4.6-6.2); White Blood Count 16.1 K/mm3 (4.4-11.0)
[2024-10-10 03:09] LABS: Anion Gap 24 (5-15); BUN 32 mg/dL (7-18); BUN/Creat Ratio 16.2 RATIO (10-20); Calcium,Total 8.5 mg/dL (8.5-10.1); Chloride 103 mmol/L (98-107); Creatinine, Serum 1.98 mg/dL (0.70-1.30); EST Glomerular Filtration Rate 44 mL/min (>60); Est Glom Filt Rate - Afr Amer 54 mL/min (>60); Estimated Creatinine Clearance 67.46 ml/min; Glucose 494 mg/dL (74-106); Potassium 3.6 mmol/L (3.5-5.1); Scan Indicated on CBC? Y/N NO; Sodium Level 139 mmol/L (136-145)
[2024-10-10 04:00] LABS: Bedside Glucose 459 mg/dL (74-106)
[2024-10-10] MEDS: Lactated Ringers 1,000 ML 999 ML IV (04:10)
[2024-10-10 05:10] LABS: Bedside Glucose 422 mg/dL (74-106)
[2024-10-10 06:05] LABS: Bedside Glucose 371 mg/dL (74-106)
[2024-10-10 06:52] LABS: Bedside Glucose 414 mg/dL (74-106)
[2024-10-10 07:11] LABS: Anion Gap 20 (5-15); BUN 29 mg/dL (7-18); BUN/Creat Ratio 15.8 RATIO (10-20); Calcium,Total 8.6 mg/dL (8.5-10.1); Chloride 107 mmol/L (98-107); Creatinine, Serum 1.84 mg/dL (0.70-1.30); EST Glomerular Filtration Rate 48 mL/min (>60); Est Glom Filt Rate - Afr Amer 59 mL/min (>60); Glucose 461 mg/dL (74-106); Potassium 3.7 mmol/L (3.5-5.1); Sodium Level 140 mmol/L (136-145)
[2024-10-10] MEDS: 0.9% Normal Saline (1000mL) 1,000 ML 200 ML IV ×3 (07:41→22:27)
[2024-10-10 08:03] LABS: Bedside Glucose 373 mg/dL (74-106)
[2024-10-10] MEDS: Enoxaparin 40 MG/0.4 ML Syringe SC (08:53)
[2024-10-10 09:12] LABS: Bedside Glucose 286 mg/dL (74-106)
[2024-10-10 10:01] LABS: Bedside Glucose 278 mg/dL (74-106)
[2024-10-10] MEDS: 0.9% Saline Lock 10 ML Syringe IV ×4 (10:05→17:07)
[2024-10-10 10:35] LABS: Anion Gap 14 (5-15); BUN 25 mg/dL (7-18); BUN/Creat Ratio 14.3 RATIO (10-20); Calcium,Total 8.8 mg/dL (8.5-10.1); Chloride 112 mmol/L (98-107); Creatinine, Serum 1.75 mg/dL (0.70-1.30); EST Glomerular Filtration Rate 51 mL/min (>60); Est Glom Filt Rate - Afr Amer 62 mL/min (>60); Estimated Creatinine Clearance 76.33 ml/min; Glucose 298 mg/dL (74-106); Potassium 3.5 mmol/L (3.5-5.1); Sodium Level 143 mmol/L (136-145)
[2024-10-10 11:05] LABS: Bedside Glucose 288 mg/dL (74-106)
[2024-10-10 12:07] LABS: Bedside Glucose 251 mg/dL (74-106)
[2024-10-10] MEDS: Dext 5%-0.45% NS 1,000 ML 150 ML IV (13:04)
[2024-10-10 13:07] LABS: Bedside Glucose 229 mg/dL (74-106)
[2024-10-10] MEDS: Ondansetron 4 MG/2 ML Vial IV (13:55)
[2024-10-10 14:06] LABS: Bedside Glucose 214 mg/dL (74-106)
[2024-10-10 14:58] LABS: Anion Gap 8 (5-15); BUN 23 mg/dL (7-18); BUN/Creat Ratio 15.1 RATIO (10-20); Calcium,Total 8.6 mg/dL (8.5-10.1); Chloride 115 mmol/L (98-107); Creatinine, Serum 1.52 mg/dL (0.70-1.30); EST Glomerular Filtration Rate 60 mL/min (>60); Est Glom Filt Rate - Afr Amer 73 mL/min (>60); Estimated Creatinine Clearance 87.88 ml/min; Glucose 230 mg/dL (74-106); Potassium 3.3 mmol/L (3.5-5.1); Sodium Level 144 mmol/L (136-145)
[2024-10-10 15:17] LABS: Bedside Glucose 205 mg/dL (74-106)
[2024-10-10] MEDS: Insulin Lispro 100 UNIT/ML INSULN.PEN SC ×2 (15:54→21:03)
[2024-10-10] MEDS: Potassium Chloride Oral Tablet 20 MEQ 40 MEQ PO (15:54)
[2024-10-10] MEDS: Insulin Glargine-YFGN 100 UNIT/ML Pen 35 UNIT SC ×2 (15:55→21:03)
[2024-10-10 16:17] LABS: Bedside Glucose 204 mg/dL (74-106)
[2024-10-10] MEDS: proCHLORPERazine 10 MG/2 ML Vial 5 MG IV (17:07)
[2024-10-10 21:25] LABS: Bedside Glucose 320 mg/dL (74-106)
[2024-10-11] VITALS (11 sets, daily range): BP systolic 93–137; BP diastolic 50–81; PULSE 91–124; RESP 12–25; TEMP 36.6–37.1; O2SAT 95–100; BMI 25.3
[2024-10-11] MEDS: 0.9% Normal Saline (1000mL) 1,000 ML 200 ML IV (03:20)
[2024-10-11 03:29] LABS: Absolute Lymphocyte Count 1.29 X10^3/uL (0.83-4.51); Basophil# 0.02 X10^3/uL; Basophil% 0.2 % (0-1); Eosinophil# 0.04 X10^3/uL; Eosinophils% 0.5 % (0-5); Hematocrit 26.8 % (40-54); Hemoglobin 9.1 g/dL (13.0-16.5); Lymphocyte # 1.29 X10^3/ul (0.83-4.51); Lymphocyte % 15.9 % (19-41); Mean Corpuscular Hgb 25.6 pg (27.0-32.0); Mean Corpuscular Volume 75.3 fL (80-94); Mean Platelet Vol. 9.3 fl (6.2-12.0); Monocyte% 8.6 % (0-10); NRBC Flagged by Analyzer 0 % (0-5); Neutrophil # 6.04 X10^3/uL (2.7-7.7); Neutrophil % 74.6 % (47-70); Platelet Count 293 K/mm3 (150-450); RBC Distribution Width CV 14.6 % (11.6-14.6); RBC Distribution Width SD 40.4 fl (35.1-43.9); Red Blood Count 3.56 M/mm3 (4.6-6.2); White Blood Count 8.1 K/mm3 (4.4-11.0)
[2024-10-11 03:49] LABS: Anion Gap 4 (5-15); BUN 17 mg/dL (7-18); BUN/Creat Ratio 16.3 RATIO (10-20); Calcium,Total 8.2 mg/dL (8.5-10.1); Chloride 116 mmol/L (98-107); Creatinine, Serum 1.04 mg/dL (0.70-1.30); EST Glomerular Filtration Rate 93 mL/min (>60); Est Glom Filt Rate - Afr Amer 113 mL/min (>60); Estimated Creatinine Clearance 128.44 ml/min; Glucose 112 mg/dL (74-106); Potassium 3.3 mmol/L (3.5-5.1); Sodium Level 145 mmol/L (136-145)
[2024-10-11 07:58] LABS: Bedside Glucose 67 mg/dL (74-106)
[2024-10-11 09:17] LABS: Bedside Glucose 106 mg/dL (74-106)
[2024-10-11] MEDS: Insulin Glargine-YFGN 100 UNIT/ML Pen 35 UNIT SC (10:30)
[2024-10-11 11:34] LABS: Bedside Glucose 169 mg/dL (74-106)
== END 2024-10-11 11:32 | disposition home or self-care (01) | DRG 420 ==
LOC: ED 19:10 → ICU 21:45
PROVIDERS: Admitting Provider Hospitalist; Emergency Provider Emergency Medicine; PCP Family Medicine; Visit Provider Student in an Organized Health Care Education/Training Program
DX: E10.10 Type 1 diabetes mellitus with ketoacidosis without coma (principal); E43 Unspecified severe protein-calorie malnutrition; E10.43 Type 1 diabetes mellitus with diabetic autonomic (poly)neuropathy; D64.9 Anemia, unspecified; E87.6 Hypokalemia; N17.9 Acute kidney failure, unspecified; Z79.4 Long term (current) use of insulin; N13.30 Unspecified hydronephrosis; N13.4 Hydroureter; Z86.718 Personal history of other venous thrombosis and embolism; Z86.711 Personal history of pulmonary embolism; Z68.24 Body mass index [BMI] 24.0-24.9, adult
CPT/HCPCS: 71045; 74176; 80048; 80053; 81001; 82009; 82803; 82947; 82962; 83036; 83605; 83735; 84100; 85025; 85027; 85610; 85730; 87040; 87070; 87077; 87086; 87088; 87186; 92610; 93005; 97802; 99285; J7030; J7120; A4216; J2405; J7799

== ENCOUNTER 2024-12-23 17:07 | Inpatient (IN) | payer MEDICAID, SELFPAY ==
[2024-12-23 17:33] VITALS: BP 86/44; PULSE 113; RESP 27; TEMP 36.6; O2SAT 94; BMI 24.7
--- NOTE | 2024-12-23 17:36 | EKG12_ITS ---
Test Reason : HYPERGLYCEMIA Blood Pressure : */* mmHG Vent. Rate : 108 BPM Atrial Rate : 108 BPM P-R Int : 152 ms QRS Dur : 110 ms QT Int : 376 ms P-R-T Axes : 67 79 67 degrees QTcB Int : 503 ms Sinus tachycardia otherwise normal Confirmed by Mauri Almanzar ([id number]), editorial project manager QUE BLANC ([id number]) on 12/24/2024 11:25:30 AM Referred By: Confirmed By: Mauri Almanzar
--- NOTE | 2024-12-23 17:54 | RAD_ITS ---
PROCEDURE: CHEST 1 VIEW (PORTABLE) REASON FOR EXAM: Fatigue. TECHNIQUE: Frontal view of the chest. COMPARISON: None. FINDINGS: The cardiac and mediastinal contours are normal. No acute consolidation, pleural effusion or pneumothorax. The visualized osseous structures demonstrate no acute abnormality. RAD/Chest 1 View (Portable) IMPRESSION: No acute consolidation, pleural effusion or pneumothorax. Reading Location: [id number]
--- NOTE | 2024-12-23 17:55 | EDS_ITS ---
HPI History of Present Illness Chief Complaint: Hyperglycemia Informant: patient and EMS Limited: other (mental status change ) Narrative Narrative: Patient is a 24-year-old male with history insulin-dependent diabetes mellitus, frequent admissions for DKA, pulmonary emboli, pericardial effusion presenting to the ER via EMS for elevated blood sugar and generalized weakness today. Patient states his symptoms started today. He states he does have his insulin at home. When asked why he thinks his blood sugar is high he states he is had a hard time getting around but does not elaborate further. Is unclear when he last took his insulin. Blood sugars running high for nursing staff when he arrived. Of note patient was covered in bedbugs when he arrived and was cleaned off in [place]. Patient has no complaints at this time. There is some dried blood looks like emesis on his mouth. He when asked about he states yes he has been vomiting. [facility] Medical History Medical non-compliance Diabetic ketoacidosis History of venous thromboembolism Intractable nausea and vomiting Sepsis C. difficile enteritis Chronic anticoagulation History of diabetes mellitus Anticoagulant long-term use Anemia due to chronic illness [place] grade D esophagitis [place] esophagitis Gastroparesis Recurrent pulmonary embolism AP window (aortopulmonary window) Anxiety Depression DVT (deep venous thrombosis) Hypokalemia Noncompliance with diabetes treatment History of medication noncompliance Severe protein-calorie malnutrition Kidney disease Hypokalemia Non-smoker Asthma Psychosocial problem femur surgery Diabetes mellitus type 1 GERD (gastroesophageal reflux disease) Home Medications ?Medication ?Instructions ?Recorded ?Last Taken ?Type insulin lispro 100 unit/mL See Protocol subcut ACHS DI ABETES 07/24/22 10/05/23 History subcutaneous pen (Humalog KwikPen (U-100) Insulin) blood sugar diagnostic (OneTouch 02/27/23 Unknown His tory Verio test strips) flash glucose sensor (FreeStyle 02/27/23 Unknown Hist ory Niru 14 Day Sensor kit) insulin glargine-yfgn 100 unit/mL 35 unit (0.35 mL) garcia bcut BID #10 07/10/24 Unknown Rx (3 mL) subcutaneous pen pens pen needle, diabetic 31 gauge x #100 ea 07/10/24 Unkno wn Rx / amoxicillin 875 mg-potassium 1 tab PO BID #14 tabs Unknown Rx clavulanate 125 mg tablet benzocaine 15 mg-menthol 2.6 mg 1 scott mucous membrane Q2H PRN sore 10/11/24 Unknown Rx lozenges (Cepacol Sore Throat throat #16 ea (benzocaine-menthol)) Allergy/AdvReac Type Severity Reaction Status Date / Time vancomycin Allergy local Verified 07/15/24 15:38 rash/hives to IV site Family History Father Polysubstance overdose Patient father young secondary to OD. Mother Iron deficiency anemia Other Asthma CVA (cerebral vascular accident) Diabetes Hypertension Thyroid disorder Surgical History H/O right knee surgery History of surgery on extremity Hx of knee surgery Social History housing: other details: Lives with his grandmother, aunt and mother. Smoking Status: Never smoker alcohol intake: current alcohol intake frequency: a few times a month substance use type: does not use ROS ROS ED Review of Systems ROS Unobtainable: due to mental status Gastrointestinal Gastrointestinal: Reports vomiting EXAM Physical Exam Const Vital Signs: 12/23/24 17:33 12/23/24 17:36 12/23/24 19:00 Temperature 97.8 F Temperature Source Oral Pulse Rate 113 H 107 H Respiratory Rate 27 H 22 H Respiratory Pattern [place] Blood Pressure 86/44 L 90/45 L Blood Pressure Mean 58 60 Pulse Ox 94 99 Oxygen Delivery Method Room Air Room Air Positive well nourished Constitutional Narrative: Somnolent, ill-appearing HEENT Reports dry mucous membranes HEENT Narrative: Widespread dental decay with multiple cracked/broken teeth Mouth ED: Yes dry mucous membranes Mouth: dry mucous membranes Eyes PERRL General Eye ED: Negative for pale conjunctiva or scleral icterus Neck supple and no JVD Chest Wall inspection of chest normal and palpation of chest normal Resp Resp Narrative: Tachypnea. Clear breath sounds throughout. Cardio regular rhythm; Negative for no murmurs Rate: tachycardic GI normal to inspection, nondistended, normoactive bowel sounds and non-tender Palpation: soft; Negative for tender or guarding Extremity normal to inspection General Extremety ED: Negative for edema General Extremity: Negative for edema Neuro Neuro Narrative: Somnolent, does answer confused responses to verbal stimuli. Motor Exam: general weakness Psych mental status grossly normal Skin Skin Narrative: Chronic appearing discoloration of the feet?suspect consistent with the diabetes . MDM MDM MDM Narrative Medical decision making narrative: Patient evaluated for weakness and hyperglycemia. Upon arrival patient is somnolent, tachycardic, tachypneic and hypotensive. Has extensive history of DKA medication noncompliance suspect he is in DKA. Will perform DKA workup as well as looking for secondary infection or cause of his DKA. Patient given 2 L IV fluid in the emergency room. Blood pressure improved within disarticulate out again. Heart rate is improving. Suspect he has profound hypovolemia/volume depletion and will give 1/3 L of fluid. He has a leukocytosis of 20.9 but again I suspect this is secondary to DKA and reactive and not an acute infection. Patient has significant metabolic acidosis with pH of 7.033, bicarb 3.5, pCO2 of 13 and pO2 106.8. This is consistent with DKA. He has moderate acetone. Sodium was 126, potassium 5.8, chloride 79, bicarb 5, anion gap of 42 with a BUN of 35 and creatinine of 2.63 on his BMP. Glucose is 1083. Urinalysis shows ketones but not consistent with infection. Phosphate elevated at 10.6. Magnesium also low to 2.6. Chest x-ray viewed by myself as well as radiology does not show any acute process. Case discussed with hospitalist, Dr. Yung. Patient mated to the ICU for treatment of DKA and associated hypovolemia. Insulin drip ordered in the ER but patient has a bed available and will be started upstairs Lab Data Attestation: I reviewed the patient's lab results. Labs: Laboratory Results - last 24 hr 12/23/24 12/23/24 12/23/24 17:33 17:33 17:33 WBC 20.9 H RBC 4.74 Hgb 11.4 L Hct 38.2 L MCV 80.6 MCH 24.1 L MCHC 29.8 L RDW Std Deviation 41.8 RDW Coeff of Rabai 14.4 Plt Count 506 H MPV 10.9 Immature Gran % (Auto) 0.900 Neut % (Auto) 83.9 H Lymph % (Auto) 9.6 L [place] % (Auto) 5.0 Eos % (Auto) 0.0 Baso % (Auto) 0.6 Absolute Neuts (auto) 17.5 H Absolute Lymphs (auto) 2.00 Nucleated RBC % 0 Sodium 126 L Cancelled Potassium 5.8 H Cancelled Chloride 79 L Carbon Dioxide Anion Gap BUN Creatinine Estim Creat Clear Calc Est GFR (MDRD) Af Amer Est GFR (MDRD) Non-Af BUN/Creatinine Ratio Glucose Calcium Phosphorus Magnesium Urine Color Urine Clarity Urine pH Ur Specific [place] Urine Protein Urine Glucose (UA) Urine Ketones Urine Occult Blood Urine Nitrite Urine Bilirubin Urine Urobilinogen Ur Leukocyte Esterase Urine RBC Urine WBC Ur Squamous Epith Cells Urine Bacteria Urine Mucus Acetone Level 12/23/24 12/23/24 12/23/24 17:33 17:33 17:33 WBC RBC Hgb Hct MCV MCH MCHC RDW Std Deviation RDW Coeff of Rabia Plt Count MPV Immature Gran % (Auto) Neut % (Auto) Lymph % (Auto) [place] % (Auto) Eos % (Auto) Baso % (Auto) Absolute Neuts (auto) Absolute Lymphs (auto) Nucleated RBC % Sodium Potassium Chloride Cancelled Carbon Dioxide 5.0 L* Cancelled Anion Gap 42 H Cancelled BUN 35 H Creatinine Estim Creat Clear Calc Est GFR (MDRD) Af Amer Est GFR (MDRD) Non-Af BUN/Creatinine Ratio Glucose Calcium Phosphorus Magnesium Urine Color Urine Clarity Urine pH Ur Specific [place] Urine Protein Urine Glucose (UA) Urine Ketones Urine Occult Blood Urine Nitrite Urine Bilirubin Urine Urobilinogen Ur Leukocyte Esterase Urine RBC Urine WBC Ur Squamous Epith Cells Urine Bacteria Urine Mucus Acetone Level 12/23/24 12/23/24 12/23/24 17:33 17:33 17:33 WBC RBC Hgb Hct MCV MCH MCHC RDW Std Deviation RDW Coeff of Rabia Plt Count MPV Immature Gran % (Auto) Neut % (Auto) Lymph % (Auto) [place] % (Auto) Eos % (Auto) Baso % (Auto) Absolute Neuts (auto) Absolute Lymphs (auto) Nucleated RBC % Sodium Potassium Chloride Carbon Dioxide Anion Gap BUN Cancelled Creatinine 2.67 H Cancelled Estim Creat Clear Calc 49.60 Cancelled Est GFR (MDRD) Af Amer 38 L Est GFR (MDRD) Non-Af BUN/Creatinine Ratio Glucose Calcium Phosphorus Magnesium Urine Color Urine Clarity Urine pH Ur Specific [place] Urine Protein Urine Glucose (UA) Urine Ketones Urine Occult Blood Urine Nitrite Urine Bilirubin Urine Urobilinogen Ur Leukocyte Esterase Urine RBC Urine WBC Ur Squamous Epith Cells Urine Bacteria Urine Mucus Acetone Level 12/23/24 12/23/24 12/23/24 17:33 17:33 17:33 WBC RBC Hgb Hct MCV MCH MCHC RDW Std Deviation RDW Coeff of Rabia Plt Count MPV Immature Gran % (Auto) Neut % (Auto) Lymph % (Auto) [place] % (Auto) Eos % (Auto) Baso % (Auto) Absolute Neuts (auto) Absolute Lymphs (auto) Nucleated RBC % Sodium Potassium Chloride Carbon Dioxide Anion Gap BUN Creatinine Estim Creat Clear Calc Est GFR (MDRD) Af Amer Cancelled Est GFR (MDRD) Non-Af 31 L Cancelled BUN/Creatinine Ratio 13.1 Cancelled Glucose 1083 H* Calcium Phosphorus Magnesium Urine Color Urine Clarity Urine pH Ur Specific [place] Urine Protein Urine Glucose (UA) Urine Ketones Urine Occult Blood Urine Nitrite Urine Bilirubin Urine Urobilinogen Ur Leukocyte Esterase Urine RBC Urine WBC Ur Squamous Epith Cells Urine Bacteria Urine Mucus Acetone Level 12/23/24 12/23/24 12/23/24 17:33 17:33 18:00 WBC RBC Hgb Hct MCV MCH MCHC RDW Std Deviation RDW Coeff of Rabia Plt Count MPV Immature Gran % (Auto) Neut % (Auto) Lymph % (Auto) [place] % (Auto) Eos % (Auto) Baso % (Auto) Absolute Neuts (auto) Absolute Lymphs (auto) Nucleated RBC % Sodium Potassium Chloride Carbon Dioxide Anion Gap BUN Creatinine Estim Creat Clear Calc Est GFR (MDRD) Af Amer Est GFR (MDRD) Non-Af BUN/Creatinine Ratio Glucose Cancelled Calcium 9.4 Cancelled Phosphorus 10.6 H* Magnesium 2.9 H Urine Color Yellow Urine Clarity Clear Urine pH 6.0 Ur Specific [place] 1.015 Urine Protein 15 H Urine Glucose (UA) 1000 H Urine Ketones 150 A* Urine Occult Blood Negative Urine Nitrite Negative Urine Bilirubin Negative Urine Urobilinogen Normal Ur Leukocyte Esterase Negative Urine RBC 0 SEEN Urine WBC 0 SEEN Ur Squamous Epith Cells 0 SEEN Urine Bacteria 0 SEEN Urine Mucus 0 SEEN Acetone Level MODERATE H Radiography Diagnostic Testing: Clinical Impression(s) from Imaging Studies Chest X-Ray 12/23/24 17:54 IMPRESSION: No acute consolidation, pleural effusion or pneumothorax. Reading Location: [facility] Rhythm Strip Rhythm Strip: Sinus Tach Rate: 108 Ectopy: None EKG Initial EKG: Attestation: I personally reviewed and interpreted this EKG as follows: Interpretation: Sinus Tachycardia Comments: Sinus tachycardia rate of 108 bpm Normal axis Possible right ventricular hypertrophy Normal ST segments Prior EKG tracings: available for review Prior: Unchanged Management Discussion w/another healthcare provider: Hospitalist Critical Care Time Critical Care Time: Yes Critical care time (excluding procedures): 30-74 minutes (36), Arranging Admission or Transfer and Performing Direct Patient Care at Bedside Discharge Plan Triage Chief Complaint: Hyperglycemia ED Provider: Virginia Nguyễn Dx/Rx/DC Orders Clinical Impression: DKA (diabetic ketoacidosis), Hyperphosphatemia, Hypovolemia Primary Care Provider: Christiano Elise Disposition Disposition: Acute Care Hospital [facility]
[2024-12-23] MEDS: 0.9% Normal Saline (1000mL) 1,000 ML 999 ML IV ×3 (18:03→23:58)
[2024-12-23 18:13] LABS: Bacteria 0 SEEN /hpf (None Seen); Mucous, Urine 0 SEEN /hpf (<or=2+); Squamous Epithelial Cells - UA 0 SEEN /hpf (0-5); White Blood Cells 0 SEEN /hpf (0-5)
[2024-12-23 18:15] LABS: Color, Urine Yellow (Yellow); Glucose, Dipstick 1000 mg/dl (Normal); Leukocyte Esterase-Dipstick Negative /ul (Negative); Nitrite-Dipstick Negative (Negative); Occult Blood-Urine Negative /ul (Negative); Protein-Dipstick 15 mg/dl (Negative); Specific Gravity, Urine 1.015 (1.002-1.030); Urine Bilirubin Dipstick Negative (Negative); Urine Clarity Clear (Clear); Urine Urobilinogen Normal (Normal)
[2024-12-23 18:26] LABS: Ketone-Dipstick 150 mg/dl (Negative)
[2024-12-23 18:26] LABS: Absolute Neutrophil Count 17.5 X10^3/uL (2.0-7.7); Basophil# 0.13 X10^3/uL; Basophil% 0.6 % (0-1); Hematocrit 38.2 % (40-54); Hemoglobin 11.4 g/dL (13.0-16.5); Lymphocyte % 9.6 % (19-41); Mean Corp Hgb Conc 29.8 g/dL (32-36); Mean Corpuscular Hgb 24.1 pg (27.0-32.0); Mean Corpuscular Volume 80.6 fL (80-94); Mean Platelet Vol. 10.9 fl (6.2-12.0); Monocyte# 1.04 X10^3/uL; NRBC Flagged by Analyzer 0 % (0-5); Neutrophil # 17.53 X10^3/uL (2.7-7.7); Neutrophil % 83.9 % (47-70); Platelet Count 506 K/mm3 (150-450); RBC Distribution Width CV 14.4 % (11.6-14.6); RBC Distribution Width SD 41.8 fl (35.1-43.9); Red Blood Count 4.74 M/mm3 (4.6-6.2); White Blood Count 20.9 K/mm3 (4.4-11.0)
[2024-12-23] MEDS: 0.9% Normal Saline (1000mL) 1,000 ML 1000 ML IV (18:35)
[2024-12-23 18:55] LABS: Red Blood Cells-Urine 0 SEEN /hpf (0-5)
[2024-12-23 19:00] VITALS: BP 90/45; PULSE 107; RESP 22; O2SAT 99
[2024-12-23 19:13] LABS: Anion Gap 42 (5-15); BUN 35 mg/dL (7-18); BUN/Creat Ratio 13.1 RATIO (10-20); Calcium,Total 9.4 mg/dL (8.5-10.1); Chloride 79 mmol/L (98-107); Creatinine, Serum 2.67 mg/dL (0.70-1.30); EST Glomerular Filtration Rate 31 mL/min (>60); Est Glom Filt Rate - Afr Amer 38 mL/min (>60); Glucose 1083 mg/dL (74-106); Magnesium 2.9 mg/dL (1.6-2.6); Phosphorus 10.6 mg/dL (2.5-4.9); Potassium 5.8 mmol/L (3.5-5.1); Sodium Level 126 mmol/L (136-145)
--- NOTE | 2024-12-23 19:26 | HP.PCM.HOS_ITS ---
[facility] - General General Date of Admission: 12/23/24 Date of Service: 12/23/24 Chief Complaint: Hyperglycemia, Confusion, Nausea and Vomiting. [facility] Narrative SHIRA CARLTON, is a 24 M with a past medical history of DM-1; uncontrolled with hyperglycemia due to medical noncompliance, diabetic gastroparesis, history of DFU's, history of chronic severe protein-calorie malnutrition, GERD, history of dysphagia; with grade-D erosive esophagitis, history of candidal esophagitis, history of DVT and recurrent PE; on Xarelto, anemia of chronic disease, history of pericarditis attributed to MSSA treated at [facility] with ATB's (2021), history of stage II Left buttock ulcer, history of asthma, depression with anxiety and history of recurrent Clostridium difficile Colitis; on oral Vancomycin with admission here from April 10, 2024 to April 12, 2024 followed by multiple other admission with the most recent admission here from October 09, 2024 to October 11, 2024 for treatment of DKA with HgbA1c of 13% with Lactic Acidosis attributed to Severe Dehydration and RADHA due to Bilateral Hydronephrosis with Hydroureter who presents to [facility] ER complaining of severe hyperglycemia with altered mental status, nausea and vomiting. Mr. Carlton reports his symptoms began approximately 1 day prior to admission with the gradual-onset of progressively worsening malaise followed by generalized weakness and malaise with nausea and bilious emesis. He states he does have insulin at home but he does not know when he last took his insulin with his blood glucose reading 'high' so he decided to come in for further evaluation and treatment. Unfortunately, he was noted to be covered with bedbugs shortly after arrival and he was subsequently decontaminated. His confusion prevented him from being able to answer detailed questions regarding ROS - similar to his numerous previous admissions for DKA. In the ER he was noted to have a critically-elevated blood glucose of 1,083 mg/dL with a pH of 7.03 and moderate serum acetone present on admission consistent with DKA likely due to Medical Noncompliance with insulin therapy complicated by additional laboratory evidence of RADHA; with elevated serum creatinine of 2.67 mg/dL (up from his baseline of 1.04 mg/dL last admission) with corresponding Hyperkalemia of 5.8 mmol/L and Leukocytosis of 20.9K present on admission suspected to be due Acute Phase Reactant with no overt signs of infection at this time compounded by clinical evidence of Metabolic Encephalopathy and he was then admitted to the ICU for ongoing care for a stay that is expected to extend beyond 2 midnights. [facility] Medical History Medical non-compliance Diabetic ketoacidosis History of venous thromboembolism Intractable nausea and vomiting Sepsis C. difficile enteritis Chronic anticoagulation History of diabetes mellitus Anticoagulant long-term use Anemia due to chronic illness [place] grade D esophagitis Minerva esophagitis Gastroparesis Recurrent pulmonary embolism AP window (aortopulmonary window) Anxiety Depression DVT (deep venous thrombosis) Hypokalemia Noncompliance with diabetes treatment History of medication noncompliance Severe protein-calorie malnutrition Kidney disease Hypokalemia Non-smoker Asthma Psychosocial problem femur surgery Diabetes mellitus type 1 GERD (gastroesophageal reflux disease) Home Medications ?Medication ?Instructions ?Recorded ?Last Taken ?Type insulin lispro 100 unit/mL See Protocol subcut ACHS DI ABETES 07/24/22 10/05/23 History subcutaneous pen (Humalog KwikPen (U-100) Insulin) blood sugar diagnostic (OneTouch 02/27/23 Unknown His tory Verio test strips) flash glucose sensor (FreeStyle 02/27/23 Unknown Hist ory Niru 14 Day Sensor kit) insulin glargine-yfgn 100 unit/mL 35 unit (0.35 mL) garcia bcut BID #10 07/10/24 Unknown Rx (3 mL) subcutaneous pen pens pen needle, diabetic 31 gauge x #100 ea 07/10/24 Unkno wn Rx 1/3 amoxicillin 875 mg-potassium 1 tab PO BID #14 tabs Unknown Rx clavulanate 125 mg tablet benzocaine 15 mg-menthol 2.6 mg 1 scott mucous membrane Q2H PRN sore 10/11/24 Unknown Rx lozenges (Cepacol Sore Throat throat #16 ea (benzocaine-menthol)) Allergy/AdvReac Type Severity Reaction Status Date / Time vancomycin Allergy local Verified 07/15/24 15:38 rash/hives to IV site Family History Father Polysubstance overdose Patient father young secondary to OD. Mother Iron deficiency anemia Other Asthma CVA (cerebral vascular accident) Diabetes Hypertension Thyroid disorder Surgical History H/O right knee surgery History of surgery on extremity Hx of knee surgery Social History housing: other details: Lives with his grandmother, aunt and mother. Smoking Status: Never smoker alcohol intake: current alcohol intake frequency: a few times a month substance use type: does not use ROS ROS Narrative Full ROS could not be completed at this time due to patient's metabolic encephalopathy. Vital Signs Vital Signs Vital Signs: 12/23/24 17:33 12/23/24 17:36 12/23/24 19:00 Temperature 97.8 F Temperature Source Oral Pulse Rate 113 H 107 H Respiratory Rate 27 H 22 H Respiratory Pattern Kussmaul Blood Pressure 86/44 L 90/45 L Blood Pressure Mean 58 60 Pulse Ox 94 99 Oxygen Delivery Method Room Air Room Air Weight Weight: 192 lb 7.417 oz Body Mass Index (BMI) 24.7 Physical Exam Const alert and average body habitus Constitutional Narrative: Patient is confused, lethargic and appears chronically ill. General Appearance: cooperative Orientation / Consciousness: confused and lethargic HEENT normocephalic, head/scalp atraumatic and hearing grossly normal bilaterally HEENT Narrative: Mucous membranes dry. Eyes PERRL, EOMs intact bilaterally and conjunctivae normal Neck no lymphadenopathy and supple Resp normal respiratory effort, no retractions, no use of accessory muscles and clear to auscultation bilaterally Resp Narrative: Tachypnea @ ~27 bpm noted. Cardio regular rate and regular rhythm Cardio Narrative: Regular Tachycardia at ~113 bpm noted. GI normal to inspection, nondistended, normoactive bowel sounds, soft to palpation, non-tender and non-distended Extremity normal to inspection, full ROM and no clubbing, cyanosis or edema Skin Skin Narrative: Patient was noted to be covered with bed bugs. Chronic discoloration of feet noted. Neuro CN's II-XII intact bilaterally, moves all extremities and no focal motor deficits Sensorium / Orientation: awake, alert, oriented to person and oriented to place Speech: speech normal Psych affect normal Results Medical Records Data Attestation: I reviewed the patient's medical records Lab / Micro Data Attestation: I reviewed the patient's lab results. 12/23/24 17:33 12/24/24 04:30 Labs: Laboratory Results - last 24 hr 12/23/24 17:33: WBC 20.9 H, RBC 4.74, Hgb 11.4 L, Hct 38.2 L, MCV 80.6, MCH 24.1 L, MCHC 29.8 L, RDW Std Deviation 41.8, RDW Coeff of Rabia 14.4, Plt Count 506 H, MPV 10.9, Immature Gran % (Auto) 0.900, Neut % (Auto) 83.9 H, Lymph % (Auto) 9.6 L, [place] % (Auto) 5.0, Eos % (Auto) 0.0, Baso % (Auto) 0.6, Absolute Neuts (auto) 17.5 H, Absolute Lymphs (auto) 2.00, Nucleated RBC % 0, Sodium 126 L 12/23/24 17:33: Sodium Cancelled, Potassium 5.8 H 12/23/24 17:33: Potassium Cancelled, Chloride 79 L 12/23/24 17:33: Chloride Cancelled, Carbon Dioxide 5.0 L* 12/23/24 17:33: Carbon Dioxide Cancelled, Anion Gap 42 H 12/23/24 17:33: Anion Gap Cancelled, BUN 35 H 12/23/24 17:33: BUN Cancelled, Creatinine 2.67 H 12/23/24 17:33: Creatinine Cancelled, Estim Creat Clear Calc 49.60 12/23/24 17:33: Estim Creat Clear Calc Cancelled, Est GFR (MDRD) Af Amer 38 L 12/23/24 17:33: Est GFR (MDRD) Af Amer Cancelled, Est GFR (MDRD) Non-Af 31 L 12/23/24 17:33: Est GFR (MDRD) Non-Af Cancelled, BUN/Creatinine Ratio 13.1 12/23/24 17:33: BUN/Creatinine Ratio Cancelled, Glucose 1083 H* 12/23/24 17:33: Glucose Cancelled, Calcium 9.4 12/23/24 17:33: Calcium Cancelled, Phosphorus 10.6 H*, Magnesium 2.9 H, Acetone Level MODERATE H 12/23/24 18:00: Urine Color Yellow, Urine Clarity Clear, Urine pH 6.0, Ur Specific Bryan 1.015, Urine Protein 15 H, Urine Glucose (UA) 1000 H, Urine Ketones 150 A*, Urine Occult Blood Negative, Urine Nitrite Negative, Urine Bilirubin Negative, Urine Urobilinogen Normal, Ur Leukocyte Esterase Negative, Urine RBC 0 SEEN, Urine WBC 0 SEEN, Ur Squamous Epith Cells 0 SEEN, Urine Bacteria 0 SEEN, Urine Mucus 0 SEEN Micro: Microbiology 12/23/24 17:50 Mucosa - Nose SARS-CoV-2, Influenza & RSV (PCR) - Final ABG Data ABG results: UN DATE: 12/24/24 [facility] DEPARTMENT OF LABORATORIES PAGE 1 RUN TIME: 0832 Specimen Inquiry [address] [place], [place], [id number] PATIENT: SHIRA CARLTON ANTONINA LOC: ICU U #: [id number] : 2000 AGE/SX: 24/M FACILITY: [facility] ROOM: [address] E12/23/[address]: Dr. Satish Be, DO STATUS:ADM IN ED: 1 DIS: ~ SPEC #: [id number] HONG: 12/23/24 STATUS: COMP REQ #: [id number] RECD: 12/24/24-[address]: Dr. Will Yung, DO Test Result Flag Reference Range IBG Blood Gas Type ART SITE L Brach IRAJ TEST Positive Mode Not entered O2 Delivery Dev Room Air FI02 21.0 Time Given 22:47:[address]de arenas Read Back By Yes pH 7.02 *L 7.35-7.45 pCO2 7.5 *L 35-45 mmHg PO2 168 H 75-100 mmHG HCO3 2.0 L 22-26 mmol/L BE -29 L -2 to +2 mmol/L TOTAL CO2 < 5 mmol/L SO2 99 95-99 % Interpretation: UN DATE: 12/24/24 [facility] DEPARTMENT OF LABORATORIES PAGE 1 RUN TIME: 0832 Specimen Inquiry [address] [place], [place], [id number] PATIENT: SHIRA CARLTON LOC: ICU U #: [id number] : 2000 AGE/SX: 24/M FACILITY: [facility] ROOM: [address] E12/23/[address]: Dr. Satish Be, DO STATUS:ADM IN ED: 1 DIS: ~ SPEC #: [id number] HONG: 12/24/24 STATUS: COMP REQ #: [id number] RECD: 12/24/[address]: Dr. Will Yung, DO ENTERED: 12/24/24 [facility] DR: MD Dr. Francisco Ashley MD Dr. Bruce Arthur, MD Dr. Christophe Bursley, MD Dr. Derek Brown, DO Dr. David P Myers, MD Dr. Edward Matheis, MD Dr. Gautam Baskaran, MD Dr. Yordanos Habtegebriel, MD Dr. Hemant Dand, MD Dr. Jose Ochoa, MD Dr. Justin Wong, MD Dr. Kimber Foust, MD Dr. Lamia Aljundi, MD Dr. Marisa Magana, MD Dr. Pritam Ghosh, MD Dr. Pavan Irukulla, MD Dr. Saad Farooqi, MD Dr. Sukhdeep Dhesi, DO Dr. Sujoy Gill, MD Dr. Soleyah Groves, MD Dr. Timothy Fernstrom, MD Dr. Denny Rose Dr., MD ~ Test Result Flag Reference Range VIBG Blood Gas Type MARILYNN SITE Not entered O2 Delivery Dev Not entered Read Back By Yes VBG pH 7.28 L 7.32-7.42 VBG pCO2 18.9 *L 41-51 mmHg VBG PO2 57 H 25-40 mmHg VBG HCO3 9 L 22-26 mmol/L VBG BE -18 L -1.0-3.5 mmol/L VBG SO2 87 H 50-70 % VBG TCO2 10 L 23-33 mmol/L Rhythm Strip Rhythm Strip: Sinus Tach Rate: 108 Ectopy: None Imaging Radiology Impression Chest X-Ray 12/23/24 17:54 IMPRESSION: No acute consolidation, pleural effusion or pneumothorax. Reading Location: [facility] Assessment & Plan Assessment/Plan (1) DKA (diabetic ketoacidosis): QUALIFIERS: Diabetes mellitus type: type 1 Diabetes mellitus complication detail: without coma Qualified Code(s): E10.10 - Type 1 diabetes mellitus with ketoacidosis without coma (2) RADHA (acute kidney injury): (3) Hyperkalemia: (4) Hyperphosphatemia: (5) Hypovolemia: (6) Leukocytosis: QUALIFIERS: Leukocytosis type: unspecified Qualified Code(s): D 72.829 - Elevated white blood cell count, unspecified (7) Acute metabolic acidosis: PLAN: Plan 1. Critically-elevated blood glucose of 1,083 mg/dL with a pH of 7.03 and moderate serum acetone present on admission consistent with DKA likely due to Medical Noncompliance with insulin therapy in the setting of known DM-1; uncontrolled with hyperglycemia due to medical noncompliance and diabetic gastroparesis with most recent HgbA1c 13% - Admit to ICU for treatment under the DKA protocol primarily consisting of insulin drip. Keep strict NPO. Start pantoprazole 40 mg IV daily. Give acetaminophen suppositories prn for [id number] (level 1-5/10) pain or fever. Give morphine IV prn for severe (level 6-10/10) pain. 2. RADHA; with elevated serum creatinine of 2.67 mg/dL (up from his baseline of 1.04 mg/dL last admission) due to Dehydration with Nausea and Vomiting causing Hypovolemia complicating #1 - Give aggressive IVF and recheck renal indices daily to follow trend. Give ondansetron IV prn for nausea and vomiting. Give promethazine IM prn for breakthrough nausea and vomiting. 3. Hyperkalemia of 5.8 mmol/L with Hyperphosphatemia of 10.6 mg/dL both present on admission compounding #1 & #2 - Give IV insulin drip for #1 plus aggressively volume resuscitate and recheck BMP q. 4 hours as per DKA protocol to follow hopeful trend of improvement. 4. Leukocytosis of 20.9K present on admission suspected to be due Acute Phase Reactant with patient covered with bedbugs adding to the medical complexity of #1 - #3 - UA and CXR both negative for signs of acute infection. Serialize CBC daily to follow trend. 5. Acute Metabolic Encephalopathy attributable to #1 - #4 - Check TSH, UDS, B12 and Folate levels to evaluate for potentially reversible causes of confusion. Otherwise, continue supportive care as outlined above and monitor for improvement. 6. Most recent admission here from October 09, 2024 to October 11, 2024 for treatment of DKA with HgbA1c of 13% with Lactic Acidosis attributed to Severe Dehydration and RADHA due to Bilateral Hydronephrosis with Hydroureter - Noted with a very similar pattern of illness this admission. 7. History of recurrent Clostridium difficile Colitis; on oral Vancomycin with admission here from April 10, 2024 to April 12, 2024 followed by multiple other admissions - Noted. 8. History of chronic severe protein-calorie malnutrition - Noted. We will consult clinical dietitian to see patient in AM for further recommendations with help appreciated in advance. 9. History of DFU's - Noted with no signs of recurrence at this time. 10. GERD with history of dysphagia; with grade-D erosive esophagitis and history of candidal esophagitis - Started on pantoprazole IV for #1. 11. History of DVT and recurrent PE; previously on Xarelto - This agent is not on current medication list as he has likely stopped taking this as well. 12. Anemia of Chronic Disease - Apparently stable with hemoglobin of 11.4 g/dL and MCV of 80.6 fL present on admission. Check iron studies, ferritin and Hemoccult stools. 13. History of pericarditis attributed to MSSA treated at [facility] with ATB's (2021) - Noted. 14. History of stage II Left buttock ulcer - Noted with no signs of recurrence at this time. 15. History of asthma - Stable with no evidence of acute flare. Give albuterol nebulizers prn. 16. Depression with anxiety - Patient not currently on pharmacologic treatment for this issue. 17. DVT prophylaxis - Heparin 5,000U sq TID plus SCD's. Total time: Approximately (but not less than) 75 minutes. Charges/Coding Visit Charges Inpatient E&M: 37770 Init Hosp L3
[2024-12-23 19:44] VITALS: BP 78/49; PULSE 108; RESP 22; TEMP 36.6; O2SAT 99
--- NOTE | 2024-12-23 19:52 | ED.RN ---
This RN gave report to VERONA Chairez in ICU at this time.
[2024-12-23 20:49] LABS: Ferritin 24 ng/mL (26-388); Iron 70 ug/dL (65-175); Iron Binding Capacity,Total 539 ug/dL (250-450)
[2024-12-23 21:02] VITALS: BP 95/50; PULSE 103; RESP 24; TEMP 36.4; O2SAT 100; BMI 24.5
[2024-12-23] MEDS: 0.9% Normal Saline (1000mL) 1,000 ML 500 ML IV (21:42)
[2024-12-23] MEDS: Insulin Lispro 100 UNIT in 0.9% Normal Saline (100mL Bag) 99 ML 8.7 UNIT CONT INF (21:44)
[2024-12-23 22:00] VITALS: O2SAT 100
[2024-12-23 22:03] LABS: Vitamin B12 726 pg/mL (211-911)
[2024-12-23 22:03] LABS: Osmolality, Serum 366 mOsm/KG (275-295)
[2024-12-23 22:07] LABS: Anion Gap 39 (5-15); BUN 38 mg/dL (7-18); BUN/Creat Ratio 14.6 RATIO (10-20); Calcium,Total 8.2 mg/dL (8.5-10.1); Chloride 86 mmol/L (98-107); EST Glomerular Filtration Rate 32 mL/min (>60); Est Glom Filt Rate - Afr Amer 39 mL/min (>60); Estimated Creatinine Clearance 50.94 ml/min; Glucose 1146 mg/dL (74-106); Potassium 6.7 mmol/L (3.5-5.1); Sodium Level 128 mmol/L (136-145); Thyroid Stim Hormone (TSH) 0.501 uIU/mL (0.358-3.740)
[2024-12-23 22:45] LABS: Amphetamine Urine NEGATIVE (<1000 ng/mL); Barbiturate Urine VISTA NEGATIVE (< 200 ng/mL); Benzodiazepine Urine VISTA NEGATIVE (< 200 ng/mL); Cocaine Urine VISTA NEGATIVE (< 300 ng/mL); Ecstacy Urine VISTA NEGATIVE (< 500 ng/mL); Methadone Urine VISTA NEGATIVE (< 300 ng/mL); PCP Urine VISTA NEGATIVE (< 25 ng/mL); THC Urine VISTA NEGATIVE (< 50 ng/mL); Vista UDS pH Range 5
[2024-12-23 22:50] LABS: Allen Test Positive; Base Excess -29 mmol/L (-2 to +2); Blood Gas Specimen Type ART; Mode Not entered; O2 Delivery Device Room Air; PO2 168 mmHG (75-100); SITE L Brach; SO2 99 % (95-99); Total Carbon Dioxide < 5 mmol/L; pCO2 7.5 mmHg (35-45); pH 7.02 (7.35-7.45)
--- NOTE | 2024-12-23 23:20 | EKG12_ITS ---
Test Reason : Blood Pressure : */* mmHG Vent. Rate : 108 BPM Atrial Rate : 108 BPM P-R Int : 136 ms QRS Dur : 98 ms QT Int : 378 ms P-R-T Axes : 78 81 41 degrees QTcB Int : 506 ms Sinus tachycardia Incomplete right bundle branch block Marked ST abnormality, possible inferior subendocardial injury Marked ST abnormality, possible anterior subendocardial injury Abnormal ECG When compared with ECG of 23-Dec-2024 17:45, Incomplete right bundle branch block is now Present ST now depressed in Inferior leads ST now depressed in Anterior leads T wave inversion now evident in Anterior leads Confirmed by SHERMAN CASTILLO, KEVIN ([id number]), society editor AYESHA VALLE ([id number]) on 12/26/2024 1:09:04 PM Referred By: Confirmed By: KEVIN WHITAKER MD
[2024-12-23] MEDS: Sodium Bicarbonate 150 MEQ in Dextrose 5%-Water (1000mL Bag) 1,000 ML IV (23:24)
[2024-12-23] MEDS: Calcium Gluconate 1 GM/10 ML Vial 2 GM IVP (23:27)
--- NOTE | 2024-12-23 23:39 | CON.PCM.CC_ITS ---
HPI Consult Data Date of Consult: 12/23/24 HPI Narrative Reason for Consultation: DKA HPI Narrative: SHIRA STEPHENSON, is a 24 M with DM-1; uncontrolled with hyperglycemia due to medical noncompliance, diabetic gastroparesis, history of DFU's, history of chronic severe protein-calorie malnutrition, GERD, history of dysphagia; with grade-D erosive esophagitis, history of candidal esophagitis, history of DVT and recurrent PE; on Xarelto, anemia of chronic disease, history of pericarditis attributed to MSSA treated at [facility] with ATB's (2021), history of stage II Left buttock ulcer, history of asthma, depression with anxiety and history of recurrent Clostridium difficile Colitis; on oral Vancomycin with admission here from April 10, 2024 to April 12, 2024 followed by multiple other admission with the most recent admission here from October 09, 2024 to October 11, 2024 for treatment of DKA with HgbA1c of 13% with Lactic Acidosis attributed to Severe Dehydration and RADHA due to Bilateral Hydronephrosis with Hydroureter who presents to [facility] ER complaining of severe hyperglycemia with altered mental status, nausea and vomiting. Currently patient is lethargic and unable to provide history. Patient was found to be hyperglycemic and in DKA. [facility] Medical History Medical non-compliance Diabetic ketoacidosis History of venous thromboembolism Intractable nausea and vomiting Sepsis C. difficile enteritis Chronic anticoagulation History of diabetes mellitus Anticoagulant long-term use Anemia due to chronic illness [place] grade D esophagitis Minerva esophagitis Gastroparesis Recurrent pulmonary embolism AP window (aortopulmonary window) Anxiety Depression DVT (deep venous thrombosis) Hypokalemia Noncompliance with diabetes treatment History of medication noncompliance Severe protein-calorie malnutrition Kidney disease Hypokalemia Non-smoker Asthma Psychosocial problem femur surgery Diabetes mellitus type 1 GERD (gastroesophageal reflux disease) Home Medications ?Medication ?Instructions ?Recorded ?Last Taken ?Type insulin lispro 100 unit/mL See Protocol subcut ACHS DI ABETES 07/24/22 10/05/23 History subcutaneous pen (Humalog KwikPen (U-100) Insulin) blood sugar diagnostic (OneTouch 02/27/23 Unknown His tory Verio test strips) flash glucose sensor (FreeStyle 02/27/23 Unknown [facility] ory Niru 14 Day Sensor kit) insulin glargine-yfgn 100 unit/mL 35 unit (0.35 mL) garcia bcut BID #10 07/10/24 Unknown Rx (3 mL) subcutaneous pen pens pen needle, diabetic 31 gauge x #100 ea 07/10/24 Unkno wn Rx 1/ amoxicillin 875 mg-potassium 1 tab PO BID #14 tabs Unknown Rx clavulanate 125 mg tablet benzocaine 15 mg-menthol 2.6 mg 1 scott mucous membrane Q2H PRN sore 10/11/24 Unknown Rx lozenges (Cepacol Sore Throat throat #16 ea (benzocaine-menthol)) Allergy/AdvReac Type Severity Reaction Status Date / Time vancomycin Allergy local Verified 07/15/24 15:38 rash/hives to IV site Family History Father Polysubstance overdose Patient father young secondary to OD. Mother Iron deficiency anemia Other Asthma CVA (cerebral vascular accident) Diabetes Hypertension Thyroid disorder Surgical History H/O right knee surgery History of surgery on extremity Hx of knee surgery Social History housing: other details: Lives with his grandmother, aunt and mother. Smoking Status: Never smoker alcohol intake: current alcohol intake frequency: a few times a month substance use type: does not use ROS Review of Systems ROS Unobtainable: due to encephalopathy Objective Data Objective Data Vital Signs: Vital Signs Last response 3 Temperature 36.4 C L 12/23/24 21:02 Temperature Source Temporal 12/23/24 21:02 Pulse Rate 103 H 12/23/24 21:02 Respiratory Rate 24 H 12/23/24 21:02 Respiratory Pattern Kussmaul 12/23/24 17:36 Blood Pressure 95/50 L 12/23/24 21:02 Blood Pressure Mean 65 12/23/24 21:02 Blood Pressure Source Monitor 12/23/24 21:02 Blood Pressure Position Semi-Fowlers 12/23/24 21:02 Blood Pressure Location Left Arm 12/23/24 21:02 Pulse Ox 100 12/23/24 21:02 Oxygen Delivery Method Room Air 12/23/24 21:02 I&O: I&O Last 24 Hours 3 12/22/24 12/23/24 12/23/24 23:59 11:59 23:59 Intake Total 3200 / 3200 Balance 3200 / 3200 I&O: Total Stay 3 12/23/24 17:07 thru 12/23/24 21:36 Intake Total 3200 Balance 3200 Current Meds Ordered / Administered: Current meds ordered / Administered 3 Generic Name Dose Route Start Last Admin Trade Name Freq PRN Reason Stop Dose Admin Acetaminophen 650 mg 12/23/24 20:58 Acetaminophen 650 Mg Suppository RC Q6H PRN PRN Pain 1-5 or Fever Heparin Sodium (Porcine) 5,000 unit 12/23/24 22:00 Heparin Injection (Vial) 5,000 Unit/Ml Vial SC Q8 [facility] Dextrose 250 mls @ 999 mls/hr 12/23/24 19:34 Dextrose 10%-Water IV .Q16M PRN Hypoglycemic Protocol Protocol Pantoprazole Sodium 40 mg/ 110 mls @ 330 mls/hr 12/23/24 20:58 Sodium Chloride IV Q24 [facility] Dextrose 250 mls @ 999 mls/hr 12/23/24 20:58 Dextrose 10%-Water IV .Q16M PRN Hypoglycemic Protocol Protocol Insulin Human Lispro 100 unit/ 100 mls @ 8.73 mls/hr 12/23/24 20:58 12/23/24 21:44 Sodium Chloride CONT INF 0.1 units/kg/hr .[id number] [facility] 8.7 mls/hr Administration Protocol 0.1 UNITS/KG/HR Albumin Human 25 gm in 100 mls @ 60 mls/hr 12/23/24 22:15 IV 12/23/24 23:54 X1 ONE Sodium Bicarbonate 150 meq/ 1,150 mls @ 150 mls/hr 12/23/24 22:15 Dextrose IV .[id number] [facility] Morphine Sulfate 2 mg 12/23/24 20:58 Morphine 2 Mg/Ml Syringe IV Q4H PRN PRN Pain Score 6-10 Ondansetron HCl 4 mg 12/23/24 20:58 Ondansetron 4 Mg/2 Ml Vial IV Q4H PRN PRN NAUSEA/VOMITING Promethazine HCl 12.5 mg 12/23/24 20:58 Promethazine 25 Mg/Ml Syringe IM Q4H PRN PRN BREAKTHROUGH NAUSEA Sodium Chloride 10 - 40 ml 12/23/24 21:21 0.9% Saline Lock 10 Ml Syringe IV UD PRN SALINE FLUSH Throat Lozenges 1 lozenge 12/23/24 21:26 Benzocaine/Menthol 1 Lozenge MUCOUS MEM Q2H PRN sore throat Physical Exam Narrative PHYSICAL EXAMINATION General: no acute distress; lethargic HEENT: PERRL; Anicteric Sclera; No thyromegaly, JVD, Lymphadenopathy Cardiovascular: Regular Rate and Rhythm; No murmurs, rubs, gallops; no displaced PMI Respiratory: no crackles, wheezes, or rhonchi Abdominal: Non-tender; Non-distended; Active BS x 4; No Hepatosplenomegaly Extremities: Warm, well perfused; No clubbing, cyanosis, edema; capillary refill < 2sec Neurological: Lethargic, responsive to painful stimuli Lab / Micro Data 12/23/24 17:33 12/23/24 20:55 Labs: Laboratory Results - last 24 hr 12/23/24 17:33: WBC 20.9 H, RBC 4.74, Hgb 11.4 L, Hct 38.2 L, MCV 80.6, MCH 24.1 L, MCHC 29.8 L, RDW Std Deviation 41.8, RDW Coeff of Rabia 14.4, Plt Count 506 H, MPV 10.9, Immature Gran % (Auto) 0.900, Neut % (Auto) 83.9 H, Lymph % (Auto) 9.6 L, [place] % (Auto) 5.0, Eos % (Auto) 0.0, Baso % (Auto) 0.6, Absolute Neuts (auto) 17.5 H, Absolute Lymphs (auto) 2.00, Nucleated RBC % 0, Sodium 126 L 12/23/24 17:33: Sodium Cancelled, Potassium 5.8 H 12/23/24 17:33: Potassium Cancelled, Chloride 79 L 12/23/24 17:33: Chloride Cancelled, Carbon Dioxide 5.0 L* 12/23/24 17:33: Carbon Dioxide Cancelled, Anion Gap 42 H 12/23/24 17:33: Anion Gap Cancelled, BUN 35 H 12/23/24 17:33: BUN Cancelled, Creatinine 2.67 H 12/23/24 17:33: Creatinine Cancelled, Estim Creat Clear Calc 49.60 12/23/24 17:33: Estim Creat Clear Calc Cancelled, Est GFR (MDRD) Af Amer 38 L 12/23/24 17:33: Est GFR (MDRD) Af Amer Cancelled, Est GFR (MDRD) Non-Af 31 L 12/23/24 17:33: Est GFR (MDRD) Non-Af Cancelled, BUN/Creatinine Ratio 13.1 12/23/24 17:33: BUN/Creatinine Ratio Cancelled, Glucose 1083 H* 12/23/24 17:33: Glucose Cancelled, Serum Osmolality 366 H, Calcium 9.4 12/23/24 17:33: Calcium Cancelled, Phosphorus 10.6 H*, Magnesium 2.9 H, Iron 70, TIBC 539 H, Iron Saturation 13.0 L, Ferritin 24 L, Acetone Level MODERATE H 12/23/24 18:00: Urine Color Yellow, Urine Clarity Clear, Urine pH 6.0, Ur Specific [place] 1.015, Urine Protein 15 H, Urine Glucose (UA) 1000 H, Urine Ketones 150 A*, Urine Occult Blood Negative, Urine Nitrite Negative, Urine Bilirubin Negative, Urine Urobilinogen Normal, Ur Leukocyte Esterase Negative, Urine RBC 0 SEEN, Urine WBC 0 SEEN, Ur Squamous Epith Cells 0 SEEN, Urine Bacteria 0 SEEN, Urine Mucus 0 SEEN, Urine Opiates Screen NEGATIVE, Urine Methadone Screen NEGATIVE, Ur Barbiturates Screen NEGATIVE, Ur Phencyclidine Scrn NEGATIVE, Ur Amphetamines Screen NEGATIVE, MDMA (Ecstasy) Screen NEGATIVE, U Benzodiazepines Scrn NEGATIVE, Urine Cocaine Screen NEGATIVE, U Cannabinoids Screen NEGATIVE, Ur Drug Screen Comment 12/23/24 20:55: Sodium 128 L, Potassium 6.7 H*, Chloride 86 L, Carbon Dioxide 4.0 L*, Anion Gap 39 H, BUN 38 H, Creatinine 2.60 H, Estim Creat Clear Calc 50.94, Est GFR (MDRD) Af Amer 39 L, Est GFR (MDRD) Non-Af 32 L, BUN/Creatinine Ratio 14.6, Glucose 1146 H*, Calcium 8.2 L, Vitamin B12 726, Folate 78.70 H, TSH 0.501 Micro: Microbiology 12/23/24 17:50 Mucosa - Nose SARS-CoV-2, Influenza & RSV (PCR) - Final ABG Data ABG results: ABG 12/23/24 22:46 Specimen Type ART Sample Site L Brach pH 7.02 L* Bicarbonate Actual 2.0 L Total CO2 < 5 Base Excess -29 L O2 Saturation 99 O2 % 21.0 ABG pCO2 7.5 L* ABG pO2 168 H Hector Test Positive O2 Delivery Device Room Air Vent Mode Not entered Crit Call To/Read Back Yes Blood Gas Notified Whom dr.de arenas Blood Gas Notified Time 22:47:51 Rhythm Strip Rhythm Strip: Sinus Tach Rate: 108 Ectopy: None Imaging Radiology Impression Chest X-Ray 12/23/24 17:54 IMPRESSION: No acute consolidation, pleural effusion or pneumothorax. Reading Location: [facility] [place] Assessment and Plan . Assessment and plan: #DKA #Encephalopathy due to DKA #Severe metabolic acidosis #RADHA #Hyperkalemia due to severe acidosis #Non compliance #h/o DVT #GERD Plan -Monitor patient in ICU for any metabolic derangement or neurological worsening -Check UA for ketones -Check beta hydroxybutyrate -IV insulin protocol -Hold insulin for K < 3.3 -DKA protocol -Monitor anion gap, been closed we will switch to long-acting insulin and sliding scale insulin -Monitor electrolytes and replace accordingly -IV fluids, switch fluids to D5 containing fluid when blood sugars are 200 to 250 -NPO for now, start on full liquids and advance diet as tolerated when nausea vomiting resolve -Zofran for nausea, if needed we will also add Phenergan -Hypoglycemia protocol -Hemoglobin A1c -Will give Bicarb pushes for Ph<7.1 -Continue Bicarb drip for now -EKG for hyperkalemia -Monitor renal function -Avoid nephrotoxic agent -Renal consult if patient has persistent elevated creatinine -DVT Px - Heparin Sq Critical Care Time: 66mins The entirety of this encounter was done via Telemedicine
[2024-12-23 23:40] LABS: Bedside Glucose > 500 mg/dL (74-106)
[2024-12-23 23:40] LABS: Bedside Glucose > 500 mg/dL (74-106)
[2024-12-23 23:52] LABS: Anion Gap 37 (5-15); BUN 39 mg/dL (7-18); BUN/Creat Ratio 14.8 RATIO (10-20); Calcium,Total 8.2 mg/dL (8.5-10.1); Chloride 90 mmol/L (98-107); Creatinine, Serum 2.63 mg/dL (0.70-1.30); EST Glomerular Filtration Rate 32 mL/min (>60); Est Glom Filt Rate - Afr Amer 39 mL/min (>60); Estimated Creatinine Clearance 50.35 ml/min; Glucose 1048 mg/dL (74-106); Potassium 6.1 mmol/L (3.5-5.1); Sodium Level 131 mmol/L (136-145)
[2024-12-23] MEDS: Sodium Bicarbonate 8.4% 50 ML Syringe 100 MEQ IV (23:57)
[2024-12-24] VITALS (34 sets, daily range): BP systolic 83–133; BP diastolic 39–81; PULSE 93–131; RESP 15–25; TEMP 35.3–36.8; O2SAT 94–100
--- NOTE | 2024-12-24 00:03 | CT_ITS ---
EXAM: BRAIN/HEAD WITHOUT CONTRAST CLINICAL HISTORY: 24-year-old male, altered mental status. Uncontrolled diabetes, DKA, lethargy. COMPARISON: CT head 07/15/2024. TECHNIQUE: Noncontrast images of the head with multiplanar reconstructions. Dose reduction techniques were used including intermediate exposure control (AEC),iterative reconstruction technique, and/or mA and/or KV dose adjustments based on patient's size. FINDINGS: No acute intracranial hemorrhage, mass, mass effect, midline shift or pathologic extra-axial fluid collection. No hydrocephalus. Age- appropriate cerebral volume and white matter. Visualized paranasal sinuses and mastoid air cells are clear. The calvarium is grossly intact. CT/Brain/Head without Contrast IMPRESSION: No CT evidence of acute intracranial pathology. Reading Location: [id number]
[2024-12-24] MEDS: Albumin Human 25% (100 mL) 25 GM/100 ML BAG IV (00:19)
[2024-12-24 00:34] LABS: Bedside Glucose > 500 mg/dL (74-106)
[2024-12-24] MEDS: Pantoprazole Sodium 40 MG in 0.9% Normal Saline (100mL MB+) 100 ML 330 MG IV ×2 (02:26→10:05)
[2024-12-24 02:37] LABS: Blood Gas Specimen Type VEN; O2 Delivery Device Not entered; SITE Not entered; VBG BASE EXCESS -18 mmol/L (-1.0-3.5); VBG Bicarbonate 9 mmol/L (22-26); VBG PO2 57 mmHg (25-40); VBG SO2 87 % (50-70); VBG TCO2 10 mmol/L (23-33); VBG pCO2 18.9 mmHg (41-51); VBG pH 7.28 (7.32-7.42)
--- NOTE | 2024-12-24 03:51 | CPS ---
Critical VBG values, Dr. Dalton aware.
[2024-12-24 05:12] LABS: Anion Gap 20 (5-15); BUN 31 mg/dL (7-18); BUN/Creat Ratio 15.7 RATIO (10-20); Chloride 107 mmol/L (98-107); Creatinine, Serum 1.98 mg/dL (0.70-1.30); EST Glomerular Filtration Rate 44 mL/min (>60); Est Glom Filt Rate - Afr Amer 54 mL/min (>60); Estimated Creatinine Clearance 66.89 ml/min; Glucose 379 mg/dL (74-106); Potassium 3.4 mmol/L (3.5-5.1); Sodium Level 143 mmol/L (136-145)
[2024-12-24] MEDS: Ondansetron 4 MG/2 ML Vial IV ×2 (05:26→10:02)
[2024-12-24] MEDS: Heparin Injection (Vial) 5,000 UNIT/ML VIAL 5000 UNIT SC ×4 (05:27→21:10)
[2024-12-24 05:55] LABS: Bedside Glucose 263 mg/dL (74-106)
[2024-12-24 05:55] LABS: Bedside Glucose 460 mg/dL (74-106)
[2024-12-24 05:55] LABS: Bedside Glucose 363 mg/dL (74-106)
[2024-12-24 06:11] LABS: Blood Gas Specimen Type VEN; O2 Delivery Device Not entered; SITE Not entered; VBG BASE EXCESS -27 mmol/L (-1.0-3.5); VBG PO2 107 mmHg (25-40); VBG SO2 95 % (50-70); VBG TCO2 < 5 mmol/L (23-33); VBG pH 7.03 (7.32-7.42)
[2024-12-24 06:19] LABS: VBG Bicarbonate 4 mmol/L (22-26)
[2024-12-24 06:39] LABS: Lactic Acid 2.4 mmol/L (0.4-1.9)
[2024-12-24] MEDS: Sodium Bicarbonate 150 MEQ in Dextrose 5%-Water (1000mL Bag) 1,000 ML IV (06:55)
[2024-12-24 07:43] LABS: Bedside Glucose 248 mg/dL (74-106)
[2024-12-24] MEDS: Potassium Chloride 10mEq/100mL 10 MEQ/100 ML IV.SOLN. 100 MEQ IV BOLUS ×4 (07:58→11:07)
[2024-12-24] MEDS: 0.9% Normal Saline (1000mL) 1,000 ML 999 ML IV ×3 (08:06→13:19)
[2024-12-24] MEDS: proMETHazine 25 MG/ML Syringe 12.5 MG IM (08:10)
[2024-12-24] MEDS: 0.9% Saline Lock 10 ML Syringe IV ×2 (08:11→13:02)
[2024-12-24 08:39] LABS: Blood Gas Specimen Type VEN; O2 Delivery Device Not entered; SITE Not entered; VBG BASE EXCESS 0 mmol/L (-1.0-3.5); VBG Bicarbonate 25 mmol/L (22-26); VBG PO2 45 mmHg (25-40); VBG SO2 82 % (50-70); VBG TCO2 26 mmol/L (23-33); VBG pCO2 37.7 mmHg (41-51); VBG pH 7.42 (7.32-7.42)
[2024-12-24 08:48] LABS: Bedside Glucose 240 mg/dL (74-106)
[2024-12-24 08:48] LABS: Bedside Glucose 235 mg/dL (74-106)
[2024-12-24 09:03] LABS: Anion Gap 11 (5-15); BUN 28 mg/dL (7-18); BUN/Creat Ratio 16.6 RATIO (10-20); Calcium,Total 8.8 mg/dL (8.5-10.1); Chloride 111 mmol/L (98-107); Creatinine, Serum 1.69 mg/dL (0.70-1.30); EST Glomerular Filtration Rate 53 mL/min (>60); Est Glom Filt Rate - Afr Amer 64 mL/min (>60); Estimated Creatinine Clearance 78.36 ml/min; Glucose 241 mg/dL (74-106); Potassium 3.3 mmol/L (3.5-5.1); Sodium Level 146 mmol/L (136-145)
--- NOTE | 2024-12-24 09:23 | PCM.PN.INT ---
Assessment & Plan Assessment/Plan (1) DKA (diabetic ketoacidosis): QUALIFIERS: Diabetes mellitus type: type 1 Diabetes mellitus complication detail: without coma Qualified Code(s): E10.10 - Type 1 diabetes mellitus with ketoacidosis without coma PLAN: Plan RECOMMENDATIONS: 1. Stop sodium bicarbonate infusion. 2. Continue IV fluid resuscitation as ordered. 3. Continue insulin infusion until anion gap has been closed x 2. 4. Aggressive electrolyte repletion. 5. Continue PPI therapy along with appropriate DVT prophylaxis. IMPRESSIONS: 1. Diabetic ketoacidosis Most likely secondary to noncompliance with prescribed outpatient regimen. Continue routine management per protocol with IV fluid resuscitation and continuous insulin infusion, pending closure of anion gap x 2. Continue aggressive electrolyte repletion. While the patient did have a profound metabolic acidosis at presentation, his serum bicarbonate has improved. Therefore, recommend discontinuation of sodium bicarbonate infusion. Additional fluid resuscitation will be administered as ordered. 2. Acute metabolic encephalopathy Secondary to presenting diabetic ketoacidosis. Anticipate further improvement with medical therapy. 3. Acute kidney injury Likely prerenal in etiology in the setting of DKA and hypotension. Continue aggressive volume resuscitation as ordered. Continue to monitor urine output. No current indication for renal replacement therapy. 4. History of medical noncompliance/history of dysphagia with gastroparesis in the setting of diabetes mellitus/history of VTE/depression Complicates care, management, recovery and prognosis. Continue medical management as noted above. This note was generated with [employer] dictation software. It may contain incorrect words, spelling, and punctuation that were not noted in checking the note before signing. Subjective Subjective The patient was seen and examined at the bedside this morning. Events from the last 24 hours have been reviewed. The patient's blood pressures have been borderline this morning. He remains afebrile. He is currently documented to be overall net +3.8 L for the hospitalization. The patient has been ordered to receive additional IV fluid resuscitation and remains on a sodium bicarbonate and insulin infusion. Sodium this morning was noted to be 146 with a potassium of 3.3, chloride of 111, bicarbonate of 24 and creatinine of 1.69. Objective Data Objective Data The patient's most recent lab work, culture data and imaging studies have all been personally reviewed. Vital Signs: Vital Signs Temp Pulse Resp BP Pulse Ox O2 Del Method 98.2 F 118 H 17 87/39 L 98 Room Air 12/24/24 08:00 12/24/24 08:00 12/24/24 08:00 12/24/24 08:00 12/24/24 08:00 12/24/24 08:00 Oxygen Delivery Method Room Air Weight: 191 lb 9.307 oz Body Mass Index (BMI) 24.5 Intake & Output: Intake and Output for Last 24 Hours 12/22/24 12/23/24 12/24/24 23:59 23:59 23:59 Intake Total 3200 / 3200 4518.84 / 4518.84 Output Total 3850 / 3850 Balance 3200 / 1750 668.84 / 668.84 Lab / Micro Data Attestation: I reviewed the patient's lab results. 12/23/24 17:33 12/24/24 08:30 Labs: Laboratory Results - last 24 hr 12/23/24 17:33: WBC 20.9 H, RBC 4.74, Hgb 11.4 L, Hct 38.2 L, MCV 80.6, MCH 24.1 L, MCHC 29.8 L, RDW Std Deviation 41.8, RDW Coeff of Rabia 14.4, Plt Count 506 H, MPV 10.9, Immature Gran % (Auto) 0.900, Neut % (Auto) 83.9 H, Lymph % (Auto) 9.6 L, [place] % (Auto) 5.0, Eos % (Auto) 0.0, Baso % (Auto) 0.6, Absolute Neuts (auto) 17.5 H, Absolute Lymphs (auto) 2.00, Nucleated RBC % 0, Sodium 126 L 12/23/24 17:33: Sodium Cancelled, Potassium 5.8 H 12/23/24 17:33: Potassium Cancelled, Chloride 79 L 12/23/24 17:33: Chloride Cancelled, Carbon Dioxide 5.0 L* 12/23/24 17:33: Carbon Dioxide Cancelled, Anion Gap 42 H 12/23/24 17:33: Anion Gap Cancelled, BUN 35 H 12/23/24 17:33: BUN Cancelled, Creatinine 2.67 H 12/23/24 17:33: Creatinine Cancelled, Estim Creat Clear Calc 49.60 12/23/24 17:33: Estim Creat Clear Calc Cancelled, Est GFR (MDRD) Af Amer 38 L 12/23/24 17:33: Est GFR (MDRD) Af Amer Cancelled, Est GFR (MDRD) Non-Af 31 L 12/23/24 17:33: Est GFR (MDRD) Non-Af Cancelled, BUN/Creatinine Ratio 13.1 12/23/24 17:33: BUN/Creatinine Ratio Cancelled, Glucose 1083 H* 12/23/24 17:33: Glucose Cancelled, Serum Osmolality 366 H, Calcium 9.4 12/23/24 17:33: Calcium Cancelled, Phosphorus 10.6 H*, Magnesium 2.9 H, Iron 70, TIBC 539 H, Iron Saturation 13.0 L, Ferritin 24 L, Acetone Level MODERATE H 12/23/24 18:00: Urine Color Yellow, Urine Clarity Clear, Urine pH 6.0, Ur Specific [place] 1.015, Urine Protein 15 H, Urine Glucose (UA) 1000 H, Urine Ketones 150 A*, Urine Occult Blood Negative, Urine Nitrite Negative, Urine Bilirubin Negative, Urine Urobilinogen Normal, Ur Leukocyte Esterase Negative, Urine RBC 0 SEEN, Urine WBC 0 SEEN, Ur Squamous Epith Cells 0 SEEN, Urine Bacteria 0 SEEN, Urine Mucus 0 SEEN, Urine Opiates Screen NEGATIVE, Urine Methadone Screen NEGATIVE, Ur Barbiturates Screen NEGATIVE, Ur Phencyclidine Scrn NEGATIVE, Ur Amphetamines Screen NEGATIVE, MDMA (Ecstasy) Screen NEGATIVE, U Benzodiazepines Scrn NEGATIVE, Urine Cocaine Screen NEGATIVE, U Cannabinoids Screen NEGATIVE, Ur Drug Screen Comment 12/23/24 20:54: POC Glucose > 500 H* 12/23/24 20:55: Sodium 128 L, Potassium 6.7 H*, Chloride 86 L, Carbon Dioxide 4.0 L*, Anion Gap 39 H, BUN 38 H, Creatinine 2.60 H, Estim Creat Clear Calc 50.94, Est GFR (MDRD) Af Amer 39 L, Est GFR (MDRD) Non-Af 32 L, BUN/Creatinine Ratio 14.6, Glucose 1146 H*, Calcium 8.2 L, Vitamin B12 726, Folate 78.70 H, TSH 0.501 12/23/24 23:09: POC Glucose > 500 H* 12/23/24 23:10: Sodium 131 L, Potassium 6.1 H*, Chloride 90 L, Carbon Dioxide 3.0 L*, Anion Gap 37 H, BUN 39 H, Creatinine 2.63 H, Estim Creat Clear Calc 50.35, Est GFR (MDRD) Af Amer 39 L, Est GFR (MDRD) Non-Af 32 L, BUN/Creatinine Ratio 14.8, Glucose 1048 H*, Hemoglobin A1c 13.0 H, Calcium 8.2 L 12/24/24 00:10: POC Glucose > 500 H* 12/24/24 02:20: POC Glucose 460 H* 12/24/24 04:30: Sodium 143, Potassium 3.4 L, Chloride 107, Carbon Dioxide 16.0 L, Anion Gap 20 H, BUN 31 H, Creatinine 1.98 H, Estim Creat Clear Calc 66.89, Est GFR (MDRD) Af Amer 54 L, Est GFR (MDRD) Non-Af 44 L, BUN/Creatinine Ratio 15.7, Glucose 379 H, Lactic Acid Cancelled, Calcium 9.0 12/24/24 04:36: POC Glucose 363 H 12/24/24 05:24: POC Glucose 263 H 12/24/24 05:45: Lactic Acid 2.4 H* 12/24/24 06:53: POC Glucose 248 H 12/24/24 07:53: POC Glucose 240 H 12/24/24 08:29: POC Glucose 235 H 12/24/24 08:30: Sodium 146 H, Potassium 3.3 L, Chloride 111 H, Carbon Dioxide 24.0, Anion Gap 11, BUN 28 H, Creatinine 1.69 H, Estim Creat Clear Calc 78.36, Est GFR (MDRD) Af Amer 64, Est GFR (MDRD) Non-Af 53 L, BUN/Creatinine Ratio 16.6, Glucose 241 H, Calcium 8.8 Micro: Microbiology 12/23/24 17:50 Mucosa - Nose SARS-CoV-2, Influenza & RSV (PCR) - Final ABG Data ABG results: ABG 12/23/24 12/23/24 12/23/24 17:54 17:57 22:46 Specimen Type Cancelled MARILYNN ART Sample Site Cancelled Not entered L Brach pH 7.02 L* Bicarbonate Actual 2.0 L Total CO2 < 5 Base Excess -29 L O2 Saturation 99 O2 % Cancelled 21.0 ABG pCO2 7.5 L* ABG pO2 168 H Hector Test Positive VBG pH Cancelled 7.03 L* VBG pH (Temp Correct) Cancelled VBG pCO2 (Temp Corrct Cancelled VBG pO2 Cancelled 107 H VBG HCO3 Cancelled 4 L VBG Total CO2 Cancelled < 5 L VBG O2 Sat (Calc) Cancelled 95 H VBG Base Excess Cancelled -27 L POC Mix VBG pCO2 Pt Tmp Cancelled 13.0 L* Respiration Rate Cancelled O2 Delivery Device Cancelled Not entered Room Air Liter Flow Cancelled Minute Volume Cancelled Vent Mode Not entered Inspiratory Time Cancelled Expiratory Time Cancelled Tidal Volume Cancelled Mean Airway Pressure Cancelled POC PEEP Cancelled Peak Inspir Pressure Cancelled POC Pressure Suppt Cancelled Pressure Control Cancelled EPAP Cancelled IPAP Cancelled Blood Gas Comments Cancelled Crit Call To/Read Back Cancelled Yes Yes Blood Gas Notified Whom Cancelled [facility] Blood Gas Notified Time Cancelled 17:59:33 22:47:51 Clinical Comments Cancelled 12/24/24 12/24/24 02:33 08:34 Specimen Type MARILYNN MARILYNN Sample Site Not entered Not entered pH Bicarbonate Actual Total CO2 Base Excess O2 Saturation O2 % ABG pCO2 ABG pO2 Hector Test VBG pH 7.28 L 7.42 VBG pH (Temp Correct) VBG pCO2 (Temp Corrct VBG pO2 57 H 45 H VBG HCO3 9 L 25 VBG Total CO2 10 L 26 VBG O2 Sat (Calc) 87 H 82 H VBG Base Excess -18 L 0 POC Mix VBG pCO2 Pt Tmp 18.9 L* 37.7 L Respiration Rate O2 Delivery Device Not entered Not entered Liter Flow Minute Volume Vent Mode Inspiratory Time Expiratory Time Tidal Volume Mean Airway Pressure POC PEEP Peak Inspir Pressure POC Pressure Suppt Pressure Control EPAP IPAP Blood Gas Comments Crit Call To/Read Back Yes Blood Gas Notified Whom Blood Gas Notified Time Clinical Comments Radiography Diagnostic Testing: Radiology Impression Chest X-Ray 12/23/24 17:54 IMPRESSION: No acute consolidation, pleural effusion or pneumothorax. Reading Location: [id number] Brain CT 12/24/24 00:03 IMPRESSION: No CT evidence of acute intracranial pathology. Reading Location: [facility] Rhythm Strip Rhythm Strip: Sinus Tach Rate: 108 Ectopy: None Physical Exam Const alert and no apparent distress General Appearance: cooperative, lethargic and ill appearing HEENT normocephalic and head/scalp atraumatic Eyes PERRL, EOMs intact bilaterally and conjunctivae normal Neck supple General: trachea midline Chest inspection of chest normal Resp normal respiratory effort Effort and Inspection: tachypneic Auscultation: Negative for rales, rhonchi or wheezes Cardio S1 normal heart sound and S2 normal heart sound Rate: tachycardic GI normal to inspection, nondistended, normoactive bowel sounds Extremity no clubbing, cyanosis or edema Skin no rashes or lesions noted Neuro CN's II-XII intact bilaterally and no focal motor deficits Psych Mood & Affect: flat affect Charges/Coding Visit Charges Inpatient E&M: 08803 Subs Hosp L3
[2024-12-24] MEDS: Dext 5%-0.45% NS 1,000 ML 150 ML IV ×4 (09:45→23:48)
[2024-12-24 09:59] LABS: Absolute Lymphocyte Count 1.01 X10^3/uL (0.83-4.51); Absolute Neutrophil Count 9.2 X10^3/uL (2.0-7.7); Basophil# 0.02 X10^3/uL; Basophil% 0.2 % (0-1); Eosinophil# 0.01 X10^3/uL; Eosinophils% 0.1 % (0-5); Hematocrit 24.8 % (40-54); Hemoglobin 8.3 g/dL (13.0-16.5); Lymphocyte # 1.01 X10^3/ul (0.83-4.51); Lymphocyte % 8.9 % (19-41); Mean Corp Hgb Conc 33.5 g/dL (32-36); Mean Corpuscular Hgb 23.5 pg (27.0-32.0); Mean Corpuscular Volume 70.3 fL (80-94); Mean Platelet Vol. 9.3 fl (6.2-12.0); Monocyte# 0.99 X10^3/uL; Monocyte% 8.7 % (0-10); NRBC Flagged by Analyzer 0 % (0-5); Neutrophil # 9.23 X10^3/uL (2.7-7.7); Neutrophil % 81.3 % (47-70); Platelet Count 346 K/mm3 (150-450); RBC Distribution Width CV 14.4 % (11.6-14.6); RBC Distribution Width SD 35.7 fl (35.1-43.9); Red Blood Count 3.53 M/mm3 (4.6-6.2); White Blood Count 11.4 K/mm3 (4.4-11.0)
[2024-12-24 10:06] LABS: Bedside Glucose 199 mg/dL (74-106)
[2024-12-24 10:14] LABS: Reflex Lactate? Y
--- NOTE | 2024-12-24 10:48 | CASEMGMT ---
VERONA FONTANEZ Assessment Face to Face with patient for initial transition planning/care coordination assessment. VERONA FONTANEZ introduced self and role at [facility], pt voices understanding. Pt is A&Ox4 and is resting comfortably in bed and is calm. Care providers, pharmacy, and demographics verified. Admitting dx: DKRishabh CHARLES Strata: 3 PCP: Jose Alberto Elise Specialists: Mandi (Jamie). Pt states that he has not seen the specialist in a while and was advised to do so to better help manage his DM. Preferred Pharmacy: [facility] Insurance: [employer] Prescription Benefit: Yes LNOK: Ines Light (GM), Sobia Light (Aunt) Living Arrangements: Pt lives with his family (GM, Aunt, Mom, Brother, and cousin) in a 2 story home with 5 steps to enter. ADLs/IADLs: Ind. Denies concerns Transportation: Pt does not drive. Pt states that his GM is his main source of transportation and denies concerns moving forward DME: Pt states that he takes insulin shots and that he has a functioning continuous BGM as well as a backup BGM with sufficient supplies. Pt reports that he has enough sensors. Pt states that he has all of the equipment and education on how to manage these for his DM. Pt states that he thought he was managing his DM well. Pt denies current concerns. HHC/SNF: Reports HH Hx but is unsure of the HH company. Pt states that HH is not an option because his Aunt does not allow visitors into the pt home. Pt has also been established with [facility] in the past. However, [facility] will not accept this pt again d/t non-compliance. Pt denies this need. Pt?s goal: Home Plan: Home once medically ready. Pt denies needs such as HH, [facility], or OP Tx. Pt states that he plans to return home with his family once he is medically ready. Pt states that he plans to better manage his DM moving forward and that he has all of the appropriate necessities to do so. Pt denies further needs at this time. CM to continue to follow. Tavo Butler RN, CM
[2024-12-24 10:56] LABS: Lactic Acid 1.8 mmol/L (0.4-1.9)
[2024-12-24 11:01] LABS: Bedside Glucose 163 mg/dL (74-106)
[2024-12-24] MEDS: Insulin Lispro 100 UNIT in 0.9% Normal Saline (100mL Bag) 99 ML 5.7 UNIT CONT INF (11:34)
[2024-12-24 11:47] LABS: Bedside Glucose 169 mg/dL (74-106)
[2024-12-24 12:49] LABS: Bedside Glucose 140 mg/dL (74-106)
[2024-12-24] MEDS: Norepinephrine 8 MG in 0.9% Normal Saline (250mL Bag) 242 ML 9.4 MG CONT INF (12:50)
[2024-12-24 13:35] LABS: Anion Gap 6 (5-15); BUN 25 mg/dL (7-18); BUN/Creat Ratio 17.2 RATIO (10-20); Calcium,Total 7.8 mg/dL (8.5-10.1); Chloride 115 mmol/L (98-107); Creatinine, Serum 1.45 mg/dL (0.70-1.30); EST Glomerular Filtration Rate 64 mL/min (>60); Est Glom Filt Rate - Afr Amer 77 mL/min (>60); Estimated Creatinine Clearance 91.33 ml/min; Glucose 159 mg/dL (74-106); Potassium 3.4 mmol/L (3.5-5.1); Sodium Level 148 mmol/L (136-145)
[2024-12-24 13:56] LABS: Bedside Glucose 140 mg/dL (74-106)
[2024-12-24] MEDS: Potassium Chloride 20mEq/100mL 20 MEQ/100 ML IV.SOLN. 100 MEQ IV BOLUS ×3 (14:17→16:39)
[2024-12-24 14:51] LABS: Bedside Glucose 127 mg/dL (74-106)
[2024-12-24 15:49] LABS: Bedside Glucose 117 mg/dL (74-106)
[2024-12-24 16:47] LABS: Bedside Glucose 112 mg/dL (74-106)
--- NOTE | 2024-12-24 17:06 | PCM.PN.HOSP ---
Reason for Visit Reason for Visit: Diagnoses Elevated white blood cell count, unspecified (12/23/24) Type 1 diabetes mellitus with ketoacidosis without coma (12/23/24) Other disorders of phosphorus metabolism (12/23/24) Hypovolemia (12/23/24) Acute metabolic acidosis (12/23/24) Hyperkalemia (12/23/24) Acute kidney failure, unspecified (12/23/24) Subjective Subjective Patient was seen and examined today, he is lethargic, he remains on IV fluids at this time and his anion gap is closed. Critical care is elected to keep the patient on insulin drip at this time due to his lethargy. Objective Data Objective Data Vital Signs: Vital Signs Temp Pulse Resp BP Pulse Ox O2 Del Method 98.1 F 110 H 19 H 117/58 L 97 Room Air 12/24/24 12:00 12/24/24 16:00 12/24/24 15:00 12/24/24 15:15 12/24/24 15:00 12/24/24 16:00 Oxygen Delivery Method Room Air Weight: 86.9 kg Body Mass Index (BMI) 24.5 Intake & Output: Intake and Output for Last 24 Hours 12/22/24 12/23/24 12/24/24 23:59 23:59 23:59 Intake Total 3200 / 3200 8625.92 / 8625.92 Output Total 4700 / 4700 Balance 3200 / 1750 3925.92 / 3925.92 Lab / Micro Data 12/24/24 09:47 12/24/24 13:00 Labs: Laboratory Results - last 24 hr 12/23/24 17:33: WBC 20.9 H, RBC 4.74, Hgb 11.4 L, Hct 38.2 L, MCV 80.6, MCH 24.1 L, MCHC 29.8 L, RDW Std Deviation 41.8, RDW Coeff of Rabia 14.4, Plt Count 506 H, MPV 10.9, Immature Gran % (Auto) 0.900, Neut % (Auto) 83.9 H, Lymph % (Auto) 9.6 L, [place] % (Auto) 5.0, Eos % (Auto) 0.0, Baso % (Auto) 0.6, Absolute Neuts (auto) 17.5 H, Absolute Lymphs (auto) 2.00, Nucleated RBC % 0, Sodium 126 L 12/23/24 17:33: Sodium Cancelled, Potassium 5.8 H 12/23/24 17:33: Potassium Cancelled, Chloride 79 L 12/23/24 17:33: Chloride Cancelled, Carbon Dioxide 5.0 L* 12/23/24 17:33: Carbon Dioxide Cancelled, Anion Gap 42 H 12/23/24 17:33: Anion Gap Cancelled, BUN 35 H 12/23/24 17:33: BUN Cancelled, Creatinine 2.67 H 12/23/24 17:33: Creatinine Cancelled, Estim Creat Clear Calc 49.60 12/23/24 17:33: Estim Creat Clear Calc Cancelled, Est GFR (MDRD) Af Amer 38 L 12/23/24 17:33: Est GFR (MDRD) Af Amer Cancelled, Est GFR (MDRD) Non-Af 31 L 12/23/24 17:33: Est GFR (MDRD) Non-Af Cancelled, BUN/Creatinine Ratio 13.1 12/23/24 17:33: BUN/Creatinine Ratio Cancelled, Glucose 1083 H* 12/23/24 17:33: Glucose Cancelled, Serum Osmolality 366 H, Calcium 9.4 12/23/24 17:33: Calcium Cancelled, Phosphorus 10.6 H*, Magnesium 2.9 H, Iron 70, TIBC 539 H, Iron Saturation 13.0 L, Ferritin 24 L, Acetone Level MODERATE H 12/23/24 18:00: Urine Color Yellow, Urine Clarity Clear, Urine pH 6.0, Ur Specific [place] 1.015, Urine Protein 15 H, Urine Glucose (UA) 1000 H, Urine Ketones 150 A*, Urine Occult Blood Negative, Urine Nitrite Negative, Urine Bilirubin Negative, Urine Urobilinogen Normal, Ur Leukocyte Esterase Negative, Urine RBC 0 SEEN, Urine WBC 0 SEEN, Ur Squamous Epith Cells 0 SEEN, Urine Bacteria 0 SEEN, Urine Mucus 0 SEEN, Urine Opiates Screen NEGATIVE, Urine Methadone Screen NEGATIVE, Ur Barbiturates Screen NEGATIVE, Ur Phencyclidine Scrn NEGATIVE, Ur Amphetamines Screen NEGATIVE, MDMA (Ecstasy) Screen NEGATIVE, U Benzodiazepines Scrn NEGATIVE, Urine Cocaine Screen NEGATIVE, U Cannabinoids Screen NEGATIVE, Ur Drug Screen Comment 12/23/24 20:54: POC Glucose > 500 H* 12/23/24 20:55: Sodium 128 L, Potassium 6.7 H*, Chloride 86 L, Carbon Dioxide 4.0 L*, Anion Gap 39 H, BUN 38 H, Creatinine 2.60 H, Estim Creat Clear Calc 50.94, Est GFR (MDRD) Af Amer 39 L, Est GFR (MDRD) Non-Af 32 L, BUN/Creatinine Ratio 14.6, Glucose 1146 H*, Calcium 8.2 L, Vitamin B12 726, Folate 78.70 H, TSH 0.501 12/23/24 23:09: POC Glucose > 500 H* 12/23/24 23:10: Sodium 131 L, Potassium 6.1 H*, Chloride 90 L, Carbon Dioxide 3.0 L*, Anion Gap 37 H, BUN 39 H, Creatinine 2.63 H, Estim Creat Clear Calc 50.35, Est GFR (MDRD) Af Amer 39 L, Est GFR (MDRD) Non-Af 32 L, BUN/Creatinine Ratio 14.8, Glucose 1048 H*, Hemoglobin A1c 13.0 H, Calcium 8.2 L 12/24/24 00:10: POC Glucose > 500 H* 12/24/24 02:20: POC Glucose 460 H* 12/24/24 04:30: Sodium 143, Potassium 3.4 L, Chloride 107, Carbon Dioxide 16.0 L, Anion Gap 20 H, BUN 31 H, Creatinine 1.98 H, Estim Creat Clear Calc 66.89, Est GFR (MDRD) Af Amer 54 L, Est GFR (MDRD) Non-Af 44 L, BUN/Creatinine Ratio 15.7, Glucose 379 H, Lactic Acid Cancelled, Calcium 9.0 12/24/24 04:36: POC Glucose 363 H 12/24/24 05:24: POC Glucose 263 H 12/24/24 05:45: Lactic Acid 2.4 H* 12/24/24 06:53: POC Glucose 248 H 12/24/24 07:53: POC Glucose 240 H 12/24/24 08:29: POC Glucose 235 H 12/24/24 08:30: Sodium 146 H, Potassium 3.3 L, Chloride 111 H, Carbon Dioxide 24.0, Anion Gap 11, BUN 28 H, Creatinine 1.69 H, Estim Creat Clear Calc 78.36, Est GFR (MDRD) Af Amer 64, Est GFR (MDRD) Non-Af 53 L, BUN/Creatinine Ratio 16.6, Glucose 241 H, Calcium 8.8 12/24/24 09:46: POC Glucose 199 H 12/24/24 09:47: WBC 11.4 H, RBC 3.53 L, Hgb 8.3 L, Hct 24.8 L, MCV 70.3 L D, MCH 23.5 L, MCHC 33.5 D, RDW Std Deviation 35.7, RDW Coeff of Rabia 14.4, Plt Count 346, MPV 9.3, Immature Gran % (Auto) 0.800, Neut % (Auto) 81.3 H, Lymph % (Auto) 8.9 L, Dent % (Auto) 8.7, Eos % (Auto) 0.1, Baso % (Auto) 0.2, Absolute Neuts (auto) 9.2 H, Absolute Lymphs (auto) 1.01, Nucleated RBC % 0 12/24/24 10:25: Lactic Acid 1.8 12/24/24 10:43: POC Glucose 163 H 12/24/24 11:29: POC Glucose 169 H 12/24/24 12:31: POC Glucose 140 H 12/24/24 13:00: Sodium 148 H, Potassium 3.4 L, Chloride 115 H, Carbon Dioxide 27.0, Anion Gap 6, BUN 25 H, Creatinine 1.45 H, Estim Creat Clear Calc 91.33, Est GFR (MDRD) Af Amer 77, Est GFR (MDRD) Non-Af 64, BUN/Creatinine Ratio 17.2, Glucose 159 H, Calcium 7.8 L 12/24/24 13:37: POC Glucose 140 H 12/24/24 14:32: POC Glucose 127 H 12/24/24 15:29: POC Glucose 117 H 12/24/24 16:29: POC Glucose 112 H Micro: Microbiology 12/23/24 17:50 Mucosa - Nose SARS-CoV-2, Influenza & RSV (PCR) - Final ABG Data ABG results: ABG 12/23/24 12/23/24 12/23/24 17:54 17:57 22:46 Specimen Type Cancelled MARILYNN ART Sample Site Cancelled Not entered L Brach pH 7.02 L* Bicarbonate Actual 2.0 L Total CO2 < 5 Base Excess -29 L O2 Saturation 99 O2 % Cancelled 21.0 ABG pCO2 7.5 L* ABG pO2 168 H Hector Test Positive VBG pH Cancelled 7.03 L* VBG pH (Temp Correct) Cancelled VBG pCO2 (Temp Corrct Cancelled VBG pO2 Cancelled 107 H VBG HCO3 Cancelled 4 L VBG Total CO2 Cancelled < 5 L VBG O2 Sat (Calc) Cancelled 95 H VBG Base Excess Cancelled -27 L POC Mix VBG pCO2 Pt Tmp Cancelled 13.0 L* Respiration Rate Cancelled O2 Delivery Device Cancelled Not entered Room Air Liter Flow Cancelled Minute Volume Cancelled Vent Mode Not entered Inspiratory Time Cancelled Expiratory Time Cancelled Tidal Volume Cancelled Mean Airway Pressure Cancelled POC PEEP Cancelled Peak Inspir Pressure Cancelled POC Pressure Suppt Cancelled Pressure Control Cancelled EPAP Cancelled IPAP Cancelled Blood Gas Comments Cancelled Crit Call To/Read Back Cancelled Yes Yes Blood Gas Notified Whom Cancelled [facility] Blood Gas Notified Time Cancelled 17:59:33 22:47:51 Clinical Comments Cancelled 12/24/24 12/24/24 02:33 08:34 Specimen Type MARILYNN MARILYNN Sample Site Not entered Not entered pH Bicarbonate Actual Total CO2 Base Excess O2 Saturation O2 % ABG pCO2 ABG pO2 Hector Test VBG pH 7.28 L 7.42 VBG pH (Temp Correct) VBG pCO2 (Temp Corrct VBG pO2 57 H 45 H VBG HCO3 9 L 25 VBG Total CO2 10 L 26 VBG O2 Sat (Calc) 87 H 82 H VBG Base Excess -18 L 0 POC Mix VBG pCO2 Pt Tmp 18.9 L* 37.7 L Respiration Rate O2 Delivery Device Not entered Not entered Liter Flow Minute Volume Vent Mode Inspiratory Time Expiratory Time Tidal Volume Mean Airway Pressure POC PEEP Peak Inspir Pressure POC Pressure Suppt Pressure Control EPAP IPAP Blood Gas Comments Crit Call To/Read Back Yes Blood Gas Notified Whom Blood Gas Notified Time Clinical Comments Radiography Diagnostic Testing: Radiology Impression Chest X-Ray 12/23/24 17:54 IMPRESSION: No acute consolidation, pleural effusion or pneumothorax. Reading Location: [id number] CT 12/24/24 00:03 IMPRESSION: No CT evidence of acute intracranial pathology. Reading Location: [facility] Rhythm Strip Rhythm Strip: Sinus Tach Rate: 108 Ectopy: None Physical Exam Const alert and no apparent distress Constitutional Narrative: Patient is lethargic but answers simple questions appropriately General Appearance: cooperative, well kempt and well developed Orientation / Consciousness: awake, oriented to person and oriented to place HEENT normocephalic, head/scalp atraumatic and moist oral mucous membranes Eyes PERRL, EOMs intact bilaterally and conjunctivae normal Neck supple, no JVD, thyroid normal and no carotid bruits General: trachea midline Resp normal respiratory effort, no retractions, no use of accessory muscles and clear to auscultation bilaterally Auscultation: Negative for rales, rhonchi or wheezes Cardio regular rate, regular rhythm, S1 normal heart sound, S2 normal heart sound, no murmurs, no rub and no gallops GI normal to inspection, nondistended, normoactive bowel sounds, soft to palpation, non-tender and non-distended Extremity no clubbing, cyanosis or edema Skin no rashes or lesions noted General Skin Exam: no breakdown Neuro CN's II-XII intact bilaterally, no focal motor deficits and no sensory deficits noted Sensorium / Orientation: awake, alert, oriented to person and oriented to place Speech: speech normal Psych Psych Narrative: Patient is lethargic and has a flat affect Assessment & Plan Assessment/Plan (1) DKA (diabetic ketoacidosis): QUALIFIERS: Diabetes mellitus type: type 1 Diabetes mellitus complication detail: without coma Qualified Code(s): E10.10 - Type 1 diabetes mellitus with ketoacidosis without coma PLAN: Plan 1. DKA-patient will remain on insulin drip for now due to his lethargy, fluid administration will continue, labs will be monitored #2 metabolic encephalopathy secondary to DKA-continue to provide supportive care #3 hypokalemia-patient was given potassium supplementation today, labs will be monitored #4 acute kidney injury-creatinine has improved since his admission #5 medical noncompliance-this is a chronic problem for the patient and does not viviana well for him in the future. Total clinical time spent by myself addressing the patient's medical issues, reviewing all of his data, and collaborating with patient's care team: 35 minutes Charges/Coding Visit Charges Inpatient E&M: 93725 Subs Hosp L2
[2024-12-24 17:36] LABS: Bedside Glucose > 500 mg/dL (74-106)
[2024-12-24 17:36] LABS: Bedside Glucose > 500 mg/dL (74-106)
[2024-12-24 18:03] LABS: Bedside Glucose 103 mg/dL (74-106)
[2024-12-24 18:34] LABS: Anion Gap 6 (5-15); BUN 20 mg/dL (7-18); BUN/Creat Ratio 16.1 RATIO (10-20); Calcium,Total 7.9 mg/dL (8.5-10.1); Chloride 116 mmol/L (98-107); Creatinine, Serum 1.24 mg/dL (0.70-1.30); EST Glomerular Filtration Rate 76 mL/min (>60); Est Glom Filt Rate - Afr Amer 92 mL/min (>60); Glucose 116 mg/dL (74-106); Potassium 3.7 mmol/L (3.5-5.1); Sodium Level 147 mmol/L (136-145)
[2024-12-24 19:08] LABS: Bedside Glucose 112 mg/dL (74-106)
[2024-12-24 20:14] LABS: Bedside Glucose 119 mg/dL (74-106)
[2024-12-24 21:46] LABS: Bedside Glucose 118 mg/dL (74-106)
[2024-12-24 23:32] LABS: Bedside Glucose 132 mg/dL (74-106)
[2024-12-24 23:34] LABS: Anion Gap 7 (5-15); BUN 16 mg/dL (7-18); BUN/Creat Ratio 13.3 RATIO (10-20); Calcium,Total 7.7 mg/dL (8.5-10.1); Chloride 111 mmol/L (98-107); EST Glomerular Filtration Rate 79 mL/min (>60); Est Glom Filt Rate - Afr Amer 96 mL/min (>60); Estimated Creatinine Clearance 110.36 ml/min; Glucose 144 mg/dL (74-106); Potassium 3.1 mmol/L (3.5-5.1); Sodium Level 144 mmol/L (136-145)
[2024-12-25] VITALS (23 sets, daily range): BP systolic 95–122; BP diastolic 55–81; PULSE 87–110; RESP 13–24; TEMP 36.2–37.3; O2SAT 93–99; BMI 26.5
[2024-12-25] MEDS: Potassium Chloride Oral Tablet 20 MEQ 60 MEQ PO (00:21)
[2024-12-25] MEDS: Heparin Injection (Vial) 5,000 UNIT/ML VIAL 5000 UNIT SC ×3 (05:15→23:25)
[2024-12-25 05:20] LABS: Absolute Lymphocyte Count 1.59 X10^3/uL (0.83-4.51); Basophil# 0.03 X10^3/uL; Basophil% 0.4 % (0-1); Eosinophil# 0.04 X10^3/uL; Eosinophils% 0.5 % (0-5); Hematocrit 25.8 % (40-54); Hemoglobin 8.4 g/dL (13.0-16.5); Lymphocyte # 1.59 X10^3/ul (0.83-4.51); Mean Corp Hgb Conc 32.6 g/dL (32-36); Mean Corpuscular Hgb 23.5 pg (27.0-32.0); Mean Corpuscular Volume 72.3 fL (80-94); Mean Platelet Vol. 9.1 fl (6.2-12.0); Monocyte# 0.68 X10^3/uL; Monocyte% 8.1 % (0-10); NRBC Flagged by Analyzer 0 % (0-5); Neutrophil # 6.01 X10^3/uL (2.7-7.7); Neutrophil % 71.5 % (47-70); Platelet Count 285 K/mm3 (150-450); RBC Distribution Width CV 14.8 % (11.6-14.6); RBC Distribution Width SD 38.5 fl (35.1-43.9); Red Blood Count 3.57 M/mm3 (4.6-6.2); White Blood Count 8.4 K/mm3 (4.4-11.0)
[2024-12-25 05:21] LABS: Bedside Glucose 140 mg/dL (74-106)
[2024-12-25 05:31] LABS: Anion Gap 6 (5-15); BUN 11 mg/dL (7-18); BUN/Creat Ratio 10.9 RATIO (10-20); Calcium,Total 7.4 mg/dL (8.5-10.1); Chloride 109 mmol/L (98-107); Creatinine, Serum 1.01 mg/dL (0.70-1.30); EST Glomerular Filtration Rate 97 mL/min (>60); Est Glom Filt Rate - Afr Amer 117 mL/min (>60); Estimated Creatinine Clearance 131.12 ml/min; Glucose 153 mg/dL (74-106); Potassium 2.9 mmol/L (3.5-5.1); Sodium Level 141 mmol/L (136-145)
[2024-12-25 06:00] LABS: Bedside Glucose 142 mg/dL (74-106)
[2024-12-25 06:00] LABS: Bedside Glucose 121 mg/dL (74-106)
[2024-12-25] MEDS: Dext 5%-0.45% NS 1,000 ML 150 ML IV (06:02)
--- NOTE | 2024-12-25 07:15 | PN.CC_ITS ---
Assessment & Plan Assessment/Plan (1) DKA (diabetic ketoacidosis): QUALIFIERS: Diabetes mellitus complication detail: without coma D iabetes mellitus type: type 1 Qualified Code(s): E10.10 - Type 1 diabetes mellitus with ketoacidosis without coma PLAN: Plan RECOMMENDATIONS: 1. Administer 1 additional liter of IV fluid to facilitate weaning of vasopressor support. 2. Aggressive potassium repletion as ordered. 3. Dietary advancement as tolerated. 4. Discontinue insulin infusion and resume basal and sliding scale coverage. 5. Continue PPI therapy along with appropriate DVT prophylaxis. IMPRESSIONS: 1. Diabetic ketoacidosis Resolved. Most likely secondary to noncompliance with prescribed outpatient regimen. The patient was medically managed with IV fluid resuscitation and continuous insulin infusion, with subsequent resolution of his DKA. At this time, recommend advancement of diet with discontinuation of insulin infusion and transition to basal and sliding scale coverage. Plan to continue aggressive electrolyte repletion as needed. 2. Hypovolemic shock The patient remains on a low-dose amount of Levophed. Plan to administer additional IV fluid resuscitation this morning to help facilitate weaning vasopressor support off. 3. Acute metabolic encephalopathy Secondary to presenting diabetic ketoacidosis. Continue supportive care as noted above. 4. Acute kidney injury Resolved. Likely prerenal in etiology in the setting of DKA and hypotension. 5. History of medical noncompliance/history of dysphagia with gastroparesis in the setting of diabetes mellitus/history of VTE/depression Complicates care, management, recovery and prognosis. Continue medical management as noted above. This note was generated with [employer] dictation software. It may contain incorrect words, spelling, and punctuation that were not noted in checking the note before signing. Subjective Subjective The patient was seen and examined at the bedside this morning. Events from the last 24 hours have been reviewed. The patient is currently afebrile, hemodynamically stable and maintaining appropriate oxygen saturations on room air. The patient remains on low-dose Levophed at 2 mcg/min to maintain hemodynamic stability. White blood cell count is normal. Hemoglobin was noted to be 8.4 g/dL with a platelet count of 285,000. Potassium is low 2.9. Anion gap remains closed. Objective Data Objective Data The patient's most recent lab work, culture data and imaging studies have all been personally reviewed. Vital Signs: Vital Signs Temp Pulse Resp BP Pulse Ox O2 Del Method 98.5 F 91 13 113/73 99 Room Air 12/25/24 05:00 12/25/24 07:00 12/25/24 07:00 12/25/24 07:00 12/25/24 07:00 12/25/24 07:00 Oxygen Delivery Method Room Air Weight: 207 lb 0.225 oz Body Mass Index (BMI) 26.5 Intake & Output: Intake and Output for Last 24 Hours 12/23/24 12/24/24 12/25/24 23:59 23:59 23:59 Intake Total 3200 / 3200 9763.32 / 9764.27 982.40 / 982.40 Output Total 5200 / 5200 500 / 500 Balance 3200 / 1750 4563.32 / 4564.27 482.40 / 482.40 Lab / Micro Data Attestation: I reviewed the patient's lab results. 12/25/24 05:05 12/25/24 05:05 Labs: Laboratory Results - last 24 hr 12/23/24 17:44: POC Glucose > 500 H* 12/23/24 19:18: POC Glucose > 500 H* 12/24/24 06:53: POC Glucose 248 H 12/24/24 07:53: POC Glucose 240 H 12/24/24 08:29: POC Glucose 235 H 12/24/24 08:30: Sodium 146 H, Potassium 3.3 L, Chloride 111 H, Carbon Dioxide 24.0, Anion Gap 11, BUN 28 H, Creatinine 1.69 H, Estim Creat Clear Calc 78.36, Est GFR (MDRD) Af Amer 64, Est GFR (MDRD) Non-Af 53 L, BUN/Creatinine Ratio 16.6, Glucose 241 H, Calcium 8.8 12/24/24 09:46: POC Glucose 199 H 12/24/24 09:47: WBC 11.4 H, RBC 3.53 L, Hgb 8.3 L, Hct 24.8 L, MCV 70.3 L D, MCH 23.5 L, MCHC 33.5 D, RDW Std Deviation 35.7, RDW Coeff of Rabia 14.4, Plt Count 346, MPV 9.3, Immature Gran % (Auto) 0.800, Neut % (Auto) 81.3 H, Lymph % (Auto) 8.9 L, [place] % (Auto) 8.7, Eos % (Auto) 0.1, Baso % (Auto) 0.2, Absolute Neuts (auto) 9.2 H, Absolute Lymphs (auto) 1.01, Nucleated RBC % 0 12/24/24 10:25: Lactic Acid 1.8 12/24/24 10:43: POC Glucose 163 H 12/24/24 11:29: POC Glucose 169 H 12/24/24 12:31: POC Glucose 140 H 12/24/24 13:00: Sodium 148 H, Potassium 3.4 L, Chloride 115 H, Carbon Dioxide 27.0, Anion Gap 6, BUN 25 H, Creatinine 1.45 H, Estim Creat Clear Calc 91.33, Est GFR (MDRD) Af Amer 77, Est GFR (MDRD) Non-Af 64, BUN/Creatinine Ratio 17.2, Glucose 159 H, Calcium 7.8 L 12/24/24 13:37: POC Glucose 140 H 12/24/24 14:32: POC Glucose 127 H 12/24/24 15:29: POC Glucose 117 H 12/24/24 16:29: POC Glucose 112 H 12/24/24 17:42: POC Glucose 103 12/24/24 18:05: Sodium 147 H, Potassium 3.7, Chloride 116 H, Carbon Dioxide 25.0, Anion Gap 6, BUN 20 H, Creatinine 1.24, Estim Creat Clear Calc 106.80, Est GFR (MDRD) Af Amer 92, Est GFR (MDRD) Non-Af 76, BUN/Creatinine Ratio 16.1, G lucose 116 H, Calcium 7.9 L 12/24/24 18:50: POC Glucose 112 H 12/24/24 19:55: POC Glucose 119 H 12/24/24 21:12: POC Glucose 118 H 12/24/24 23:10: Sodium 144, Potassium 3.1 L, Chloride 111 H, Carbon Dioxide 25.0, Anion Gap 7, BUN 16, Creatinine 1.20, Estim Creat Clear Calc 110.36, Est GFR (MDRD) Af Amer 96, Est GFR (MDRD) Non-Af 79, BUN/Creatinine Ratio 13.3, G lucose 144 H, Calcium 7.7 L 12/24/24 23:12: POC Glucose 132 H 12/25/24 01:06: POC Glucose 140 H 12/25/24 03:36: POC Glucose 121 H 12/25/24 05:05: WBC 8.4, RBC 3.57 L, Hgb 8.4 L, Hct 25.8 L, MCV 72.3 L, MCH 23.5 L, MCHC 32.6, RDW Std Deviation 38.5, RDW Coeff of Rabia 14.8 H, Plt Count 285, MPV 9.1, Immature Gran % (Auto) 0.500, Neut % (Auto) 71.5 H, Lymph % (Auto) 19.0, [place] % (Auto) 8.1, Eos % (Auto) 0.5, Baso % (Auto) 0.4, Absolute Neuts (auto) 6.0, Absolute Lymphs (auto) 1.59, Nucleated RBC % 0, Sodium 141, P otassium 2.9 L, Chloride 109 H, Carbon Dioxide 26.0, Anion Gap 6, BUN 11, Creatinine 1.01, Estim Creat Clear Calc 131.12, Est GFR (MDRD) Af Amer 117, Est GFR (MDRD) Non-Af 97, BUN/Creatinine Ratio 10.9, Glucose 153 H, Calcium 7.4 L 12/25/24 05:10: POC Glucose 142 H Micro: Microbiology 12/23/24 17:50 Mucosa - Nose SARS-CoV-2, Influenza & RSV (PCR) - Final ABG Data ABG results: ABG 12/24/24 08:34 Specimen Type MARILYNN Sample Site Not entered VBG pH 7.42 VBG pO2 45 H VBG HCO3 25 VBG Total CO2 26 VBG O2 Sat (Calc) 82 H VBG Base Excess 0 POC Mix VBG pCO2 Pt Tmp 37.7 L O2 Delivery Device Not entered Rhythm Strip Rhythm Strip: Sinus Tach Rate: 108 Ectopy: None Physical Exam Const alert and no apparent distress Constitutional Narrative: Somnolent, but arousable. General Appearance: cooperative HEENT normocephalic and head/scalp atraumatic Eyes PERRL, EOMs intact bilaterally and conjunctivae normal Neck supple General: trachea midline Chest inspection of chest normal Resp normal respiratory effort Auscultation: Negative for rales, rhonchi or wheezes Cardio regular rate, regular rhythm, S1 normal heart sound and S2 normal heart sound GI normal to inspection, nondistended, normoactive bowel sounds Extremity no clubbing, cyanosis or edema Skin no rashes or lesions noted Neuro CN's II-XII intact bilaterally, moves all extremities and no focal motor deficits Psych Mood & Affect: flat affect Charges/Coding Visit Charges Inpatient E&M: 01954 Subs Hosp L3
[2024-12-25] MEDS: 0.9% Normal Saline (1000mL) 1,000 ML 999 ML IV (08:02)
[2024-12-25 08:15] LABS: Bedside Glucose 118 mg/dL (74-106)
[2024-12-25] MEDS: Pantoprazole Sodium 40 MG in 0.9% Normal Saline (100mL MB+) 100 ML 330 MG IV (08:18)
[2024-12-25] MEDS: Potassium Chloride 20mEq/100mL 20 MEQ/100 ML IV.SOLN. 100 MEQ IV BOLUS ×4 (08:42→13:11)
[2024-12-25] MEDS: Insulin Glargine-YFGN 100 UNIT/ML Pen 15 UNIT SC ×2 (11:28→23:24)
[2024-12-25] MEDS: Midodrine HCl 5 MG Tablet 10 MG PO ×2 (11:52→16:24)
[2024-12-25 12:15] LABS: Bedside Glucose 123 mg/dL (74-106)
[2024-12-25 12:16] LABS: Bedside Glucose 120 mg/dL (74-106)
--- NOTE | 2024-12-25 12:23 | CASEMGMT ---
Social Work SW met with pt and introduced self and role of SW. Pt is known to this worker from previous visits. SW attempted to engage in conversation with pt. Pt maintains eye contact with this worker however answers questions minimally. During a hospital visit in July 2024, pt was agreeable to go to [facility] to get established for case management. Appt was made and transportation set up through insurance by this SW. SW inquired if pt kept that appointment. Pt states he did not. Pt confirms transportation arrived but pt did not go with them to appointment and pt did not make a followup appointment. SW inquired if pt would like to pursue case management services and pt declines. Pt states he feels safe in his home and denies any concerns with living situation at this time. Pt declines any further needs from this SW. BRENT Frank
[2024-12-25] MEDS: Acetaminophen 325 MG Tablet 650 MG PO (13:41)
--- NOTE | 2024-12-25 14:17 | CHAPLAIN ---
Type of Pastoral Visit _x__ Initial Visit ___ Follow-up Visit ___ On-call Visit ___ General Patient Visit ___ Spiritual Assessment ___ Family Conference ___ Bereavement ___ Rapid Response ___ Code Blue ___ Other (describe below) Pastoral Care Referral From _x__ Patient ___ Family ___ Nurse ___ Physician ___ Creche Attendant ___ Glass Embosser ___ Other (describe below) Sacrament/Intervention ___ Active listening ___ Anointing ___ Gnosticism ___ Bereavement ___ Communion ___ Lizbeth exploration ___ ___ Life review ___ Prayer ___ Reconciliation ___ Sacrament of Sick _x__ Supportive presence ___ Wedding ___ Other (describe below) Pastoral Comments patient denies any needs; pt says that he is just tired and is doing fine;
[2024-12-25] MEDS: Insulin Lispro 100 UNIT/ML INSULN.PEN SC ×2 (16:27→23:25)
[2024-12-25 16:47] LABS: Bedside Glucose 368 mg/dL (74-106)
--- NOTE | 2024-12-25 18:40 | PCM.PN.HOSP ---
Reason for Visit Reason for Visit: Diagnoses Elevated white blood cell count, unspecified (12/23/24) Type 1 diabetes mellitus with ketoacidosis without coma (12/23/24) Other disorders of phosphorus metabolism (12/23/24) Hypovolemia (12/23/24) Acute metabolic acidosis (12/23/24) Hyperkalemia (12/23/24) Acute kidney failure, unspecified (12/23/24) Subjective Subjective Patient was seen and examined today, he is alert and appropriate. He was able to intake food today, I have switched him over to long-acting insulin and fingerstick blood sugars with Humalog to scale. Patient is stable enough to move to [facility] at this time. Objective Data Objective Data Vital Signs: Vital Signs Temp Pulse Resp BP Pulse Ox O2 Del Method 97.2 F L 110 H 15 122/81 H 93 Room Air 12/25/24 16:00 12/25/24 16:00 12/25/24 16:00 12/25/24 16:00 12/25/24 16:00 12/25/24 16:00 Oxygen Delivery Method Room Air Weight: 93.9 kg Body Mass Index (BMI) 26.5 Intake & Output: Intake and Output for Last 24 Hours 12/23/24 12/24/24 12/25/24 23:59 23:59 23:59 Intake Total 3200 / 3200 9763.32 / 9764.27 3753.63 / 3753.63 Output Total 5200 / 5200 1450 / 1450 Balance 3200 / 1750 4563.32 / 4564.27 2303.63 / 2303.63 Lab / Micro Data 12/25/24 05:05 12/25/24 05:05 Labs: Laboratory Results - last 24 hr 12/24/24 18:50: POC Glucose 112 H 12/24/24 19:55: POC Glucose 119 H 12/24/24 21:12: POC Glucose 118 H 12/24/24 23:10: Sodium 144, Potassium 3.1 L, Chloride 111 H, Carbon Dioxide 25.0, Anion Gap 7, BUN 16, Creatinine 1.20, Estim Creat Clear Calc 110.36, Est GFR (MDRD) Af Amer 96, Est GFR (MDRD) Non-Af 79, BUN/Creatinine Ratio 13.3, Glucose 144 H, Calcium 7.7 L 02/12/25 23:12: POC Glucose 132 H 12/25/24 01:06: POC Glucose 140 H 12/25/24 03:36: POC Glucose 121 H 12/25/24 05:05: WBC 8.4, RBC 3.57 L, Hgb 8.4 L, Hct 25.8 L, MCV 72.3 L, MCH 23.5 L, MCHC 32.6, RDW Std Deviation 38.5, RDW Coeff of Rabia 14.8 H, Plt Count 285, MPV 9.1, Immature Gran % (Auto) 0.500, Neut % (Auto) 71.5 H, Lymph % (Auto) 19.0, Ramsey % (Auto) 8.1, Eos % (Auto) 0.5, Baso % (Auto) 0.4, Absolute Neuts (auto) 6.0, Absolute Lymphs (auto) 1.59, Nucleated RBC % 0, Sodium 141, Potassium 2.9 L, Chloride 109 H, Carbon Dioxide 26.0, Anion Gap 6, BUN 11, Creatinine 1.01, Estim Creat Clear Calc 131.12, Est GFR (MDRD) Af Amer 117, Est GFR (MDRD) Non-Af 97, BUN/Creatinine Ratio 10.9, Glucose 153 H, Calcium 7.4 L 12/25/24 05:10: POC Glucose 142 H 12/25/24 06:31: POC Glucose 123 H 12/25/24 07:57: POC Glucose 118 H 12/25/24 11:48: POC Glucose 120 H 12/25/24 16:25: POC Glucose 368 H Micro: Microbiology 12/23/24 17:50 Mucosa - Nose SARS-CoV-2, Influenza & RSV (PCR) - Final Rhythm Strip Rhythm Strip: Sinus Tach Rate: 108 Ectopy: None Physical Exam Narrative alert and no apparent distress Constitutional Narrative: Patient answers simple questions appropriately General Appearance: cooperative, well kempt and well developed Orientation / Consciousness: awake, oriented to person and oriented to place HEENT normocephalic, head/scalp atraumatic and moist oral mucous membranes Eyes PERRL, EOMs intact bilaterally and conjunctivae normal Neck supple, no JVD, thyroid normal and no carotid bruits General: trachea midline Resp normal respiratory effort, no retractions, no use of accessory muscles and clear to auscultation bilaterally Auscultation: Negative for rales, rhonchi or wheezes Cardio regular rate, regular rhythm, S1 normal heart sound, S2 normal heart sound, no murmurs, no rub and no gallops GI normal to inspection, nondistended, normoactive bowel sounds, soft to palpation, non-tender and non-distended Extremity no clubbing, cyanosis or edema Skin no rashes or lesions noted General Skin Exam: no breakdown Neuro CN's II-XII intact bilaterally, no focal motor deficits and no sensory deficits noted Sensorium / Orientation: awake, alert, oriented to person and oriented to place Speech: speech normal Psych Psych Narrative: Patient is appropriate and has a flat affect Assessment & Plan Assessment/Plan (1) DKA (diabetic ketoacidosis): QUALIFIERS: Diabetes mellitus type: type 1 Diabetes mellitus complication detail: without coma Qualified Code(s): E10.10 - Type 1 diabetes mellitus with ketoacidosis without coma PLAN: Plan 1. DKA-patient is stable for transfer to floor, he is taking orals well #2 metabolic encephalopathy secondary to DKA-continue to provide supportive care #3 hypokalemia-patient was given potassium supplementation today, labs will be monitored #4 acute kidney injury-creatinine has improved since his admission #5 medical noncompliance-this is a chronic problem for the patient and does not viviana well for him in the future. Total clinical time spent by myself addressing the patient's medical issues, reviewing all of his data, and collaborating with patient's care team: 35 minutes Charges/Coding Visit Charges Inpatient E&M: 46593 Subs Hosp L2
--- NOTE | 2024-12-25 20:58 | NURSING ---
Patient arrived to unit.
[2024-12-25 23:57] LABS: Bedside Glucose 285 mg/dL (74-106)
[2024-12-26 01:15] VITALS: BMI 26.5
[2024-12-26] MEDS: Heparin Injection (Vial) 5,000 UNIT/ML VIAL 5000 UNIT SC ×2 (06:19→14:59)
[2024-12-26] MEDS: Insulin Lispro 100 UNIT/ML INSULN.PEN SC ×3 (06:20→17:06)
[2024-12-26 06:35] VITALS: BP 119/71; PULSE 86; RESP 16; TEMP 37.1; O2SAT 97
[2024-12-26 06:45] LABS: Bedside Glucose 213 mg/dL (74-106)
[2024-12-26 10:24] VITALS: BP 119/79; PULSE 94; RESP 18; TEMP 36.4; O2SAT 99
[2024-12-26] MEDS: Pantoprazole Sodium 40 MG in 0.9% Normal Saline (100mL MB+) 100 ML 330 MG IV (10:27)
[2024-12-26] MEDS: 0.9% Saline Lock 10 ML Syringe IV (10:35)
[2024-12-26] MEDS: Midodrine HCl 5 MG Tablet 10 MG PO ×2 (10:36→14:59)
[2024-12-26] MEDS: Insulin Glargine-YFGN 100 UNIT/ML Pen 20 UNIT SC (10:38)
--- NOTE | 2024-12-26 11:56 | DCINST_ITS ---
Discharge Instructions Diet Discharge Diet: 2200 Calorie Control Diet DC O2, CPAP, BIPAP needs Home O2 Discharge instructions: No Dressing / Incision Discharge Activity: Return to Normal Activity Weight Bearing Status: Full weight bearing Follow Up Care Test Results: Test results from this visit will be discussed in further detail at your follow- up appointment, if applicable. Discharge Plan Admission Admit Date/Time: 12/23/24 20:06 Primary Reason for Your Visit: DKA Attending Provider: Satish Be Primary Care Provider: Christiano Elise Consulting Providers: Will Yung Discharge Orders/Prescriptions Prescriptions: Continued insulin lispro [Humalog KwikPen Insulin] 100 unit/mL insulin pen See Protocol subcut ACHS Protocol: 6. Sliding Scale Insulin Custom Condition: mg/dl range Dose/Route: Number of Units Condition: 150-199 Dose/Route: 2 Condition: 200-249 Dose/Route: 4 Condition: 250-299 Dose/Route: 6 Condition: 300-349 Dose/Route: 8 Condition: 350-399 Dose/Route: 10 Condition: 400-449 Dose/Route: 12 Condition: 450-499 Dose/Route: 14 Condition: 500> Instruction: CALL PCP Protocol Text: Custom Sliding Scale (DME) OneTouch Verio test strips Strip See Rx Instructions .ROUTE .MEDSUPPLY Rx Instructions: 4x/day (DME) FreeStyle Niru 14 Day Sensor Kit See Rx Instructions .ROUTE .MEDSUPPLY Rx Instructions: As directed (DME) pen needle, diabetic 31 gauge x 1/3 needle See Rx Instructions .Route Qty: 100 3RF Rx Instructions: As directed insulin glargine-yfgn 100 unit/mL (3 mL) Insulin Pen 40 unit subcut BID Discontinued amoxicillin-pot clavulanate 875-125 mg tablet 1 tab PO BID Qty: 14 0RF Cepacol Sore Throat (keenan-men) 15-2.6 mg lozenge 1 scott mucous membrane Q2H PRN (Reason: sore throat) Qty: 16 0RF Referrals / Follow Up: Christiano Elise MD [Primary Care Provider] - Within 1 Week Disposition Disposition (needs filled in before D/C Order can be placed): Home, Self Care
--- NOTE | 2024-12-26 12:05 | DS.PCM_ITS ---
Providers Date of Admission: 12/23/24 Date of Discharge: 12/26/24 Primary Care Physician: Dr. Christiano Elise MD Consultations 12/23/24 22:15 Consult: Bulldozer Mechanic / Pulmonary Medicine Routine Consulting Provider: Intensivists/Pulmonary Med Reason for Consult: critical care management EMERGENT Consult: No MD Notified: Yes Date Notified: 12/23/24 Time Notified: 22:15 Method of Notification: Verbal Reason For Visit: DKA, RADHA, HYPERKALEMIA AND N/V WITH ACUTE Diagnosis Discharge Diagnosis (1) DKA (diabetic ketoacidosis): Status: Acute Code(s): E11.10 - Type 2 diabetes mellitus with ketoacidosis without coma Qualifiers: Diabetes mellitus type: type 1 Diabetes mellitus complication detail[facility] Qualified Code(s): E10.10 - Type 1 diabetes mellitus with ketoacidosis without coma Plan 1. DKA-patient is stable for transfer to floor, he is taking orals well #2 metabolic encephalopathy secondary to DKA-continue to provide supportive care #3 hypokalemia-patient was given potassium supplementation today, labs will be monitored #4 acute kidney injury-creatinine has improved since his admission #5 medical noncompliance-this is a chronic problem for the patient and does not viviana well for him in the future. #6 hyperphosphatemia Total clinical time spent by myself addressing the patient's medical issues, reviewing all of his data, and collaborating with patient's care team: 35 minutes Medications at Discharge Home Medications insulin lispro 100 unit/mL subcutaneous pen (Humalog KwikPen (U-100) Insulin) See Protocol subcut ACHS DIABETES 07/24/22 blood sugar diagnostic (OneTouch Verio test strips) 02/27/23 flash glucose sensor (FreeStyle Niru 14 Day Sensor kit) 02/27/23 pen needle, diabetic 31 gauge x 1/3 #100 ea 07/10/24 insulin glargine-yfgn 100 unit/mL (3 mL) subcutaneous pen 40 unit subcut BID diabetes 12/25/24 Hospital Course Operations None Procedures None Summary of Care Provided Minutes Spent on Discharge: 31 Hospital Course: 24-year-old white male was seen in the emergency room at [facility] with complaints of altered mental status, he has been admitted several times for diabetic ketoacidosis. Workup in the emergency room showed the patient to be in diabetic ketoacidosis with a low potassium and a blood sugar of 1083, patient's pH was 7.03, his anion gap was 42. Patient was admitted to ICU and placed on insulin drip and given IV fluids, his metabolic encephalopathy improved and he was transferred to [place] [id number] after his insulin drip was discontinued and he was able to take oral medications and food. On 12/26/2024, patient was seen and examined: On examination he appeared in good health and spirits. Vital signs as documented. Skin warm and dry and without overt rashes. Neck without JVD, neck was supple, trachea midline, thyroid was normal. Lungs clear bilaterally, normal air movement was noted. Heart exam notable for regular rhythm, normal sounds and absence of murmurs, rubs or gallops. Abdomen unremarkable and without evidence of organomegaly, masses, or abdominal aortic enlargement. Bowel sounds are present, abdomen is not distended. Extremities nonedematous, no cyanosis was noted, no clubbing was noted. Neuro: Cranial nerves II through XII are grossly intact, no focal motor deficits were noted, sensation to light touch and pinprick intact, motor exam 5/5 throughout. Psych: Patient is alert and oriented x3, he does not appear anxious or depressed, he does not appear agitated. Patient appeared stable for discharge home on 12/26/2024, prognosis is guarded due to the fact the patient has had multiple admissions for DKA due to medical noncompliance. Weight / BMI Weight Weight: 93.9 kg Body Mass Index (BMI) 26.5 ABG / Lab / Microbiology Data 12/25/24 05:05 12/25/24 05:05 Laboratory: Laboratory Results - last 24 hr 12/25/24 06:31: POC Glucose 123 H 12/25/24 11:48: POC Glucose 120 H 12/25/24 16:25: POC Glucose 368 H 12/25/24 23:22: POC Glucose 285 H 12/26/24 06:18: POC Glucose 213 H Microbiology: Microbiology 12/24/24 02:15 Blood Culture (Wb) - Anticubital Right Blood Culture - Preliminary No growth in 48 hours. 12/23/24 17:50 Mucosa - Nose SARS-CoV-2, Influenza & RSV (PCR) - Final D/C Instructions Discharge Diet: 2200 Calorie Control Diet Weight Bearing Status: Full weight bearing DC O2, CPAP, BIPAP Needs Home O2 Discharge instructions: No Meaningful Use Info Meaningful Use Meaningful Use Diagnoses (Choose all that apply): None applicable Ischemic Stroke Statin Dosing Therapy Reference: STATIN DOSE THERAPY REFERENCE: * Patients > 75 years receive moderate or high dose statin therapy. * Patients 75 years or YOUNGER should receive HIGH intensity statin dose unless contraindicated. You will be required to document reason for non-treatment if statin daily dose does not meet guidelines. HIGH DOSE STATIN THERAPY DAILY Atorvastatin > than or = to 40 mg Rosuvastatin > than or = to 20 mg Amlodipine + Atorvastatin > than or = to 2.5/40 mg Ezetimibe + Simvastatin 10/80 mg Simvastatin 80mg Discharge Plan Admission Admit Date/Time: 12/23/24 20:06 Primary Reason for Your Visit: DKA Attending Provider: Satish Be Primary Care Provider: Christiano Elise Consulting Providers: Will Yung Discharge Orders/Prescriptions Prescriptions: Continued insulin lispro [Humalog KwikPen Insulin] 100 unit/mL insulin pen See Protocol subcut [facility] Protocol: 6. Sliding Scale Insulin Custom Condition: mg/dl range Dose/Route: Number of Units Condition: 150-199 Dose/Route: 2 Condition: 200-249 Dose/Route: 4 Condition: 250-299 Dose/Route: 6 Condition: 300-349 Dose/Route: 8 Condition: 350-399 Dose/Route: 10 Condition: 400-449 Dose/Route: 12 Condition: 450-499 Dose/Route: 14 Condition: 500> Instruction: CALL PCP Protocol Text: Custom Sliding Scale (DME) OneTouch Verio test strips Strip See Rx Instructions .ROUTE .MEDSUPPLY Rx Instructions: 4x/day (DME) FreeStyle Niru 14 Day Sensor Kit See Rx Instructions .ROUTE .MEDSUPPLY Rx Instructions: As directed (DME) pen needle, diabetic 31 gauge x 1/3 needle See Rx Instructions .Route Qty: 100 3RF Rx Instructions: As directed insulin glargine-yfgn 100 unit/mL (3 mL) Insulin Pen 40 unit subcut BID Discontinued amoxicillin-pot clavulanate 875-125 mg tablet 1 tab PO BID Qty: 14 0RF Cepacol Sore Throat (keenan-men) 15-2.6 mg lozenge 1 scott mucous membrane Q2H PRN (Reason: sore throat) Qty: 16 0RF Referrals / Follow Up: Christiano Elise MD [Primary Care Provider] - Within 1 Week Disposition Disposition (needs filled in before D/C Order can be placed): Home, Self Care Charges/Coding Visit Charges Inpatient E&M: 37253 Disch Hosp >30min
[2024-12-26 12:24] LABS: Bedside Glucose 151 mg/dL (74-106)
--- NOTE | 2024-12-26 13:00 | CASEMGMT ---
VERONA FONTANEZ NOTE: Discharge order is in. RN CM to room. Pt denies having any discharge needs/concerns. He verifies w/this VERONA FONTANEZ that he has all insulin/medications/diabetic supplies @ home and denies needs. His grandma gets off of work @ 3 PM and will be taking him home. He was made aware he is to f/u with Dr Elise in one week and that an appt will be scheduled for him. He asks if appt can be scheduled for after 3 PM, as that is when his grandma gets off of work and she usually takes him to the appts. VERONA FONTANEZ told pt, this would be attempted, but if not able to get an appt for him after 3 PM, an appt will be made and pt to call and change the appt if unable to find other transportation. Mckayla, wood caulker, made aware pt prefers for an appt w/Dr Elise after 3 PM. Ena MONTEZ RN, CM
[2024-12-26 13:06] LABS: Anion Gap 7 (5-15); BUN 6 mg/dL (7-18); BUN/Creat Ratio 8.8 RATIO (10-20); Calcium,Total 8.5 mg/dL (8.5-10.1); Chloride 103 mmol/L (98-107); Creatinine, Serum 0.68 mg/dL (0.70-1.30); EST Glomerular Filtration Rate 152 mL/min (>60); Est Glom Filt Rate - Afr Amer 184 mL/min (>60); Estimated Creatinine Clearance 194.75 ml/min; Glucose 177 mg/dL (74-106); Potassium 3.4 mmol/L (3.5-5.1); Sodium Level 136 mmol/L (136-145)
[2024-12-26] MEDS: Potassium Chloride Oral Tablet 20 MEQ PO (14:58)
[2024-12-26 15:03] VITALS: BP 133/86; PULSE 77; RESP 16; TEMP 37; O2SAT 98
--- NOTE | 2024-12-26 15:24 | NURSING ---
PICC line to RT upper arm taken out at this time by this RN. Pt was wearing a mask at the time of removal and instructed to cough while this RN took PICC line out. Pt followed directions and now is laying flat. Pt is aware to lay flat until 1600. Pt was educated on signs and symptoms of infection to PICC line site.
[2024-12-26 17:28] LABS: Bedside Glucose 195 mg/dL (74-106)
== END 2024-12-26 17:35 | disposition home or self-care (01) | DRG 420 ==
LOC: ED 18:37 → ICU 19:57 → MS3 12-25 20:51
PROVIDERS: Internal Medicine Critical Care Medicine; Admitting Provider Internal Medicine; Emergency Provider Emergency Medicine; PCP Family Medicine; Visit Provider Internal Medicine
DX: E10.10 Type 1 diabetes mellitus with ketoacidosis without coma (principal); G93.41 Metabolic encephalopathy; R57.1 Hypovolemic shock; D63.8 Anemia in other chronic diseases classified elsewhere; N17.9 Acute kidney failure, unspecified; E87.5 Hyperkalemia; Z79.4 Long term (current) use of insulin; K21.00 Gastro-esophageal reflux disease with esophagitis, without bleeding; Z86.718 Personal history of other venous thrombosis and embolism; Z86.711 Personal history of pulmonary embolism; Z91.148 Patient's other noncompliance with medication regimen for other reason
CPT/HCPCS: 36415; 36569; 36600; 51702; 70450; 71045; 80048; 80307; 81001; 82009; 82607; 82728; 82746; 82803; 82962; 83036; 83540; 83550; 83605; 83735; 83930; 84100; 84443; 85025; 87040; 87631; 93005; 97802; 99285; P9047; A4216; J0612; J2405

== ENCOUNTER 2025-01-30 16:32 | Inpatient (IN) | payer MEDICAID, SELFPAY ==
[2025-01-30] VITALS (18 sets, daily range): BP systolic 84–150; BP diastolic 40–119; PULSE 89–105; RESP 20–28; TEMP 32.3–36.5; O2SAT 97–100; BMI 24.4; BMI 23.9
--- NOTE | 2025-01-30 16:48 | EKG12_ITS ---
Test Reason : Blood Pressure : */* mmHG Vent. Rate : 89 BPM Atrial Rate : 89 BPM P-R Int : 156 ms QRS Dur : 110 ms QT Int : 416 ms P-R-T Axes : 62 79 63 degrees QTcB Int : 506 ms Normal sinus rhythm Prolonged QT Abnormal ECG Confirmed by YANE CASTILLO, ROXANNE ([id number]), visual effects editor AYESHA VALLE ([id number]) on 02/02/2025 6:45:37 AM Referred By: Confirmed By: ROXANNE CHE MD
[2025-01-30] MEDS: 0.9% Normal Saline (1000mL) 1,000 ML 999 ML IV ×2 (17:00→17:53)
[2025-01-30 17:04] LABS: Blood Gas Specimen Type VEN; O2 Delivery Device Not entered; SITE Not entered; VBG BASE EXCESS < -30 mmol/L (-1.0-3.5); VBG PO2 138 mmHg (25-40); VBG SO2 94 % (50-70); VBG TCO2 < 5 mmol/L (23-33); VBG pCO2 18.9 mmHg (41-51); VBG pH 6.71 (7.32-7.42)
[2025-01-30 17:11] LABS: Bedside Glucose > 500 mg/dL (74-106)
[2025-01-30 17:19] LABS: Mucous, Urine 0 SEEN /hpf (<or=2+); Squamous Epithelial Cells - UA 0 SEEN /hpf (0-5); White Blood Cells 0 SEEN /hpf (0-5)
[2025-01-30] MEDS: Insulin Lispro 100 UNIT in 0.9% Normal Saline (100mL Bag) 99 ML 8.6 UNIT CONT INF (17:19)
[2025-01-30] MEDS: Sodium Bicarbonate 8.4% 50 ML Syringe 50 MEQ IV ×2 (17:23→20:13)
[2025-01-30 17:29] LABS: Absolute Lymphocyte Count 5.67 X10^3/uL (0.83-4.51); Absolute Neutrophil Count 27.9 X10^3/uL (2.0-7.7); Basophil# 0.26 X10^3/uL; Basophil% 0.7 % (0-1); Eosinophil# 0.05 X10^3/uL; Eosinophils% 0.1 % (0-5); Hemoglobin 12.3 g/dL (13.0-16.5); Lymphocyte # 5.67 X10^3/ul (0.83-4.51); Lymphocyte % 15.3 % (19-41); Mean Corp Hgb Conc 28.6 g/dL (32-36); Mean Corpuscular Hgb 22.7 pg (27.0-32.0); Mean Corpuscular Volume 79.5 fL (80-94); Mean Platelet Vol. 10.6 fl (6.2-12.0); Monocyte# 2.47 X10^3/uL; Monocyte% 6.7 % (0-10); NRBC Flagged by Analyzer 0 % (0-5); Neutrophil # 27.85 X10^3/uL (2.7-7.7); Neutrophil % 75.2 % (47-70); POSITIVE COUNT YES; POSITIVE DIFFERENTIAL YES; POSITIVE MORPHOLOGY YES; Platelet Count 638 K/mm3 (150-450); RBC Distribution Width CV 14.7 % (11.6-14.6); RBC Distribution Width SD 41.8 fl (35.1-43.9); Red Blood Count 5.41 M/mm3 (4.6-6.2)
[2025-01-30 17:30] LABS: Color, Urine Yellow (Yellow); Glucose, Dipstick 1000 mg/dl (Normal); Leukocyte Esterase-Dipstick Negative /ul (Negative); Nitrite-Dipstick Negative (Negative); Occult Blood-Urine 10 /ul (Negative); Protein-Dipstick 30 mg/dl (Negative); Urine Bilirubin Dipstick Negative (Negative); Urine Clarity Clear (Clear); Urine Urobilinogen Normal (Normal)
--- NOTE | 2025-01-30 17:31 | EX.ED.DYSGE1 ---
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 When I entered the room he appeared diaphoretic. I was informed by nursing staff that they washed him off because he was covered with bugs. He is nonverbal. His GCS is 3 Prior similar symptoms: Yes Recent Illness/Hospitalization: Yes PFSH PFS Medical History Acute metabolic acidosis Leukocytosis Hyperkalemia RADHA (acute kidney injury) Hypovolemia Hyperphosphatemia DKA (diabetic ketoacidosis) Medical non-compliance Diabetic ketoacidosis History of venous thromboembolism Intractable nausea and vomiting Sepsis C. difficile enteritis Chronic anticoagulation History of diabetes mellitus Anticoagulant long-term use Anemia due to chronic illness Wilbraham grade D esophagitis Minerva esophagitis Gastroparesis Recurrent pulmonary embolism AP window (aortopulmonary window) Anxiety Depression DVT (deep venous thrombosis) Hypokalemia Noncompliance with diabetes treatment History of medication noncompliance Severe protein-calorie malnutrition Kidney disease Hypokalemia Non-smoker Asthma Psychosocial problem femur surgery Diabetes mellitus type 1 GERD (gastroesophageal reflux disease) Home Medications ?Medication ?Instructions ?Recorded ?Last Taken ?Type insulin lispro 100 unit/mL See Protocol subcut ACHS DIABETES 07/24/22 10/05/23 History subcutaneous pen (Humalog KwikPen (U-100) Insulin) blood sugar diagnostic (OneTouch 02/27/23 Unknown History Verio test strips) flash glucose sensor (FreeStyle 02/27/23 Unknown History Niru 14 Day Sensor kit) pen needle, diabetic 31 gauge x #100 ea 07/10/24 Unknown Rx 1/3 insulin glargine-yfgn 100 unit/mL 40 unit subcut BID diabetes 12/25/24 Unknown History (3 mL) subcutaneous pen Allergy/AdvReac Type Severity Reaction Status Date / Time vancomycin Allergy local Verified 01/30/25 16:38 rash/hives to IV site Family History Father Polysubstance overdose Patient father young secondary to OD. Mother Iron deficiency anemia Other Asthma CVA (cerebral vascular accident) Diabetes Hypertension Thyroid disorder Surgical History H/O right knee surgery History of surgery on extremity Hx of knee surgery Social History housing: other details: Lives with his grandmother, aunt and mother. Smoking Status: Never smoker alcohol intake: current alcohol intake frequency: a few times a month substance use type: does not use ROS ROS ED Review of Systems ROS Unobtainable: due to encephalopathy EXAM Physical Exam Const Vital Signs: 01/30/25 16:33 01/30/25 16:34 01/30/25 17:15 Temperature 90.2 F L Temperature Source Rectal Pulse Rate 94 Respiratory Rate 27 H Respiratory Pattern Kussmaul Blood Pressure 150/119 H Blood Pressure Mean 129 Pulse Ox 98 Oxygen Delivery Method Room Air 01/30/25 17:20 01/30/25 17:37 01/30/25 17:47 Temperature 90.2 F L Temperature Source Rectal Pulse Rate 91 89 Respiratory Rate 28 H 27 H Respiratory Pattern Blood Pressure 84/46 L 88/65 L 85/40 L Blood Pressure Mean 58 72 55 Pulse Ox 97 98 Oxygen Delivery Method Room Air Room Air 01/30/25 18:00 01/30/25 18:28 01/30/25 18:37 Temperature 96.6 F L Temperature Source Temporal Pulse Rate 89 91 92 Respiratory Rate 26 H 25 H 22 H Respiratory Pattern Blood Pressure 85/40 L 98/49 L 91/52 L Blood Pressure Mean 55 65 65 Pulse Ox 99 99 100 Oxygen Delivery Method Room Air Room Air 01/30/25 18:43 01/30/25 18:45 Temperature 97.2 F L Temperature Source Pulse Rate 92 92 Respiratory Rate 23 H 24 H Respiratory Pattern Blood Pressure 91/52 L 99/51 L Blood Pressure Mean 65 65 Pulse Ox 100 100 Oxygen Delivery Method Positive well developed and cachectic Constitutional Narrative: Pale, unresponsive, eyes are sunken and mucosas dry. General Appearance ED: well developed, cachectic and pallor Nutritional Appearance: cachectic HEENT Reports dry mucous membranes HEENT Narrative: Ears normal. Pupils are reactive. There are approximately 3 mm size. Mouth ED: Yes dry mucous membranes Mouth: dry mucous membranes Eyes PERRL and EOMs intact bilaterally General Eye ED: Yes pale conjunctiva; Negative for scleral icterus Neck no lymphadenopathy, supple and no JVD Neck Narrative: Trachea is midline. There is no stridor. 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 Cardio regular rhythm, S1 normal heart sound, S2 normal heart sound and no murmurs Rate: tachycardic GI GI Narrative: Abdomen is scaphoid. Bowel sounds are diminished. There is no palp pulsatile mass or abdominal bruit. Back/Spine no CVA tenderness Extremity Extremity Narrative: Patient has discoloration of his feet. There is delayed cap refill of his hands and feet. Neuro No oriented x3 Neuro Narrative: GCS 3 Psych Psych Narrative: Unable to determine Skin No skin turgor normal General Skin Exam: pallor MDM MDM MDM Narrative Medical decision making narrative: Clinically patient is in DKA. Will need to evaluate for infection. Will obtain chest x-ray UA. Appropriate blood work for DKA was initiated. Patient's initial blood pressure was 150/119. I was informed that the first liters pressure is 84/46. Second liter was ordered. Fluids were ordered for the next 3 hours as well. Insulin drip was started. Blood gas reveals a profound acidosis with a pH of 6.7, CO2 18, pO2 138 bicarb 2.4 with a base excess greater than -30. His BGT was greater than 500. Nurses have establish multiple IVs peripherally. 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 Lab Data Attestation: I reviewed the patient's lab results. Lab results narrative: White count Is 37,000. Hemoglobin is 12.3. He has microcytic indices. Urinalysis reveals ketones, glucose, protein and hematuria. Sodium is 127 represents pseudohyponatremia. Potassium is elevated 6.2. This was treated with bicarb bolus and drip. CO2 is less than 2. Unable to calculate anion gap. BUN and creatinine are 44 and 2.6. Estimated GFR is 34. Blood sugar is 924. Phosphorus is elevated 10.7. Magnesium is elevated 2.8. Patient's most recent creatinine was 0.68 on December 26. Labs: Laboratory Results - last 24 hr 01/30/25 01/30/25 01/30/25 16:49 16:55 16:59 WBC 37.0 H* RBC 5.41 Hgb 12.3 L Hct 43.0 MCV 79.5 L MCH 22.7 L MCHC 28.6 L RDW Std Deviation 41.8 RDW Coeff of Rabia 14.7 H Plt Count 638 H MPV 10.6 Immature Gran % (Auto) 2.000 H Neut % (Auto) 75.2 H Lymph % (Auto) 15.3 L [place] % (Auto) 6.7 Eos % (Auto) 0.1 Baso % (Auto) 0.7 Absolute Neuts (auto) 27.9 H Absolute Lymphs (auto) 5.67 H Nucleated RBC % 0 Differential Comment SCANNED Diff Path Review May foll Sodium 127 L Potassium 6.2 H* Chloride 79 L Carbon Dioxide < 2.0 L* Anion Gap TNP BUN 44 H Creatinine 2.60 H Estim Creat Clear Calc 50.94 Est GFR (MDRD) Non-Af 34 L BUN/Creatinine Ratio 16.8 Glucose 924 H* Calcium 9.8 Phosphorus 5.2 H Magnesium 2.8 H b-Hydroxybutyric mmol/L 14.2 Urine Color Yellow Urine Clarity Clear Urine pH 5.0 Ur Specific [place] 1.020 Urine Protein 30 H Urine Glucose (UA) 1000 H Urine Ketones 150 A* Urine Occult Blood 10 H Urine Nitrite Negative Urine Bilirubin Negative Urine Urobilinogen Normal Ur Leukocyte Esterase Negative Urine RBC 0 SEEN Urine WBC 0 SEEN Ur Squamous Epith Cells 0 SEEN Urine Bacteria RARE Urine Mucus 0 SEEN POC Glucose > 500 H* 01/30/25 01/30/25 01/30/25 17:20 18:18 18:30 WBC RBC Hgb Hct MCV MCH MCHC RDW Std Deviation RDW Coeff of Rabia Plt Count MPV Immature Gran % (Auto) Neut % (Auto) Lymph % (Auto) [place] % (Auto) Eos % (Auto) Baso % (Auto) Absolute Neuts (auto) Absolute Lymphs (auto) Nucleated RBC % Differential Comment Diff Path Review Sodium Potassium Chloride Carbon Dioxide Anion Gap BUN Creatinine Estim Creat Clear Calc Est GFR (MDRD) Non-Af BUN/Creatinine Ratio Glucose 878 H* Calcium Phosphorus Magnesium b-Hydroxybutyric mmol/L Urine Color Urine Clarity Urine pH Ur Specific [place] Urine Protein Urine Glucose (UA) Urine Ketones Urine Occult Blood Urine Nitrite Urine Bilirubin Urine Urobilinogen Ur Leukocyte Esterase Urine RBC Urine WBC Ur Squamous Epith Cells Urine Bacteria Urine Mucus POC Glucose > 500 H* > 500 H* ABG Data ABG results: ABG 01/30/25 17:00 Specimen Type MARILYNN Sample Site Not entered VBG pH 6.71 L* VBG pO2 138 H VBG Total CO2 < 5 L VBG O2 Sat (Calc) 94 H VBG Base Excess < -30 L POC Mix VBG pCO2 Pt Tmp 18.9 L* O2 Delivery Device Not entered Crit Call To/Read Back Yes Blood Gas Notified Whom loera Blood Gas Notified Time 17:02:02 Radiography Chest X-Ray - ED: 1 View, Read by ED Physician (Independent reviewed interpreted by me at 1742), Normal, Heart, Lungs, Mediastinum, Bony Structures and No Acute Disease Diagnostic Testing: Clinical Impression(s) from Imaging Studies Chest X-Ray 01/30/25 17:35 IMPRESSION: Negative Chest. Reading Location: [facility] EKG Initial EKG: Attestation: I personally reviewed and interpreted this EKG as follows: Interpretation: Sinus Rhythm (EKG obtained at 1740 reveals a sinus rhythm rate of 89. QT is prolonged. OK interval is 156 ms. QRS duration is prolonged at 110 ms. QTc is 506 ms. [place] is normal. There is no evidence of peaked T waves to suggest hyperkalemia.) Management Discussion w/another healthcare provider: Hospitalist (Hospitalist was paged at 1845 for admission to ICU for DKA, encephalopathy, electrolyte derangement, SIRS and lactic acidosis) Treatment and Re-Evaluation :: With a white count of greater than 37,000 unknown source treatment was Zosyn and doxycycline since he has allergy to vancomycin. Blood cultures were ordered as well as urine culture. Critical Care Time Critical Care Time: Yes Critical care time (excluding procedures): Including time spent: (History, physical, documentation, and the interpretation laboratory results and treatment for DKA with profound metabolic acidosis), Discussing w/Consultants and Arranging Admission or Transfer Discharge Plan Dx/Rx/DC Orders Clinical Impression: Diabetic ketoacidosis with coma associated with type 1 diabetes mellitus, Acute metabolic encephalopathy, Metabolic acidosis, Acute hypotension, Acute kidney injury, Hyperphosphatemia, Hypermagnesemia, Acute hyperkalemia, SIRS (systemic inflammatory response syndrome), Pseudohyponatremia, Blanco coma scale score 3-8, at arrival to emergency department Disposition Disposition: Acute Care [facility]
--- NOTE | 2025-01-30 17:35 | RAD_ITS ---
PROCEDURE: CHEST 1 VIEW (PORTABLE) 01/30/2025 REASON FOR EXAM: 24-year-old male, shortness of breath. TECHNIQUE: Frontal view of the chest. COMPARISON: Chest radiograph 12/23/2024. FINDINGS: Hardware: None. Heart: The heart size is normal. Lungs: No focal consolidation, pleural effusion or pneumothorax. Bones: The bones are unremarkable. RAD/Chest 1 View (Portable) IMPRESSION: Negative Chest. Reading Location: [id number]
[2025-01-30 17:39] LABS: Differential Indicated SCAN CRITERIA MET
[2025-01-30 17:39] LABS: Bedside Glucose > 500 mg/dL (74-106)
[2025-01-30 17:40] LABS: Ketone-Dipstick 150 mg/dl (Negative)
--- NOTE | 2025-01-30 17:40 | ED.RN ---
Wander bloom initiated.
[2025-01-30] MEDS: Sodium Bicarbonate 100 MEQ in Dextrose 5%-Water (1000mL Bag) 1,000 ML IV (17:53)
[2025-01-30 17:57] LABS: Bacteria RARE /hpf (None Seen); Red Blood Cells-Urine 0 SEEN /hpf (0-5)
[2025-01-30 18:05] LABS: Differential Comment SCANNED; Pathologist Review May foll
[2025-01-30] MEDS: Piperacil/Tazobactam 4.5 GM in 0.9% Normal Saline (100mL MB+) 100 ML IV (18:12)
--- NOTE | 2025-01-30 18:33 | ED.RN ---
Pt put in soft restraints at 1700 due to attempting to pull out IV lines and being agitated.
--- NOTE | 2025-01-30 18:34 | ED.RN ---
Per Abigail in lab, initial blood glucose reading 924
[2025-01-30 18:38] LABS: Estimated Creatinine Clearance 50.94 ml/min (50-250)
[2025-01-30 18:38] LABS: Bedside Glucose > 500 mg/dL (74-106)
--- NOTE | 2025-01-30 18:54 | PCM.HP.STD ---
HPI - General General Date of Admission: 01/30/25 Date of Service: 01/30/25 Chief Complaint: Altered mentation HPI Narrative SHIRA STEPHENSON, is a 24 M who presented to [facility] ED on 01/30/2025 with altered mentation. Patient has been seen here many times for recurrent DKA. Patient found to be in severe DKA again in the ED with initial ABG showing pH 6.71. Initial labs with glucose 924, sodium 127, potassium 6.2, chloride 79, bicarb less than 2, anion gap greater than 40, creatinine 2.60, BUN 44. Did have WBC count of 37.0 as well. Chest x-ray unremarkable. Patient given heavy IV fluid resuscitation and multiple amps of bicarb inserted on insulin drip and bicarbonate drip in the ED. Initially was not responding to commands but was protecting his airway. Given all these findings, hospitalist was contacted for admission. I saw the patient at bedside in the ED. Patient had been admitted ED for about 2 hours when I saw him. For me he was able to open his eyes to command and shake his head yes and no to questions. He did continue to appear very pale and fatigued. Will be admitted for further management. [facility] Medical History (Updated 01/30/25 @ 22:[address] Anurag Baxter, DO) DKA (diabetic ketoacidosis) Acute metabolic acidosis Leukocytosis Hyperkalemia ARDHA (acute kidney injury) Hypovolemia Hyperphosphatemia Medical non-compliance Diabetic ketoacidosis History of venous thromboembolism Intractable nausea and vomiting Sepsis C. difficile enteritis Chronic anticoagulation History of diabetes mellitus Anticoagulant long-term use Anemia due to chronic illness Waldo grade D esophagitis Minerva esophagitis Gastroparesis Recurrent pulmonary embolism AP window (aortopulmonary window) Anxiety Depression DVT (deep venous thrombosis) Hypokalemia Noncompliance with diabetes treatment History of medication noncompliance Severe protein-calorie malnutrition Kidney disease Hypokalemia Non-smoker Asthma Psychosocial problem femur surgery Diabetes mellitus type 1 GERD (gastroesophageal reflux disease) Home Medications ?Medication ?Instructions ?Recorded ?Last Taken ?Type insulin lispro 100 unit/mL See Protocol subcut ACHS DIABETES 07/24/22 10/05/23 History subcutaneous pen (Humalog KwikPen (U-100) Insulin) blood sugar diagnostic (OneTouch 02/27/23 Unknown History Verio test strips) flash glucose sensor (FreeStyle 02/27/23 Unknown History Niru 14 Day Sensor kit) pen needle, diabetic 31 gauge x #100 ea 07/10/24 Unknown Rx 1/3 insulin glargine 100 unit/mL (3 35 unit subcut BID diabetes 01/30/25 Unknown History mL) subcutaneous pen (Lantus Solostar U-100 Insulin) Allergy/AdvReac Type Severity Reaction Status Date / Time vancomycin Allergy local Verified 01/30/25 16:38 rash/hives to IV site Family History Father Polysubstance overdose Patient father young secondary to OD. Mother Iron deficiency anemia Other Asthma CVA (cerebral vascular accident) Diabetes Hypertension Thyroid disorder Surgical History H/O right knee surgery History of surgery on extremity Hx of knee surgery Social History housing: other details: Lives with his grandmother, aunt and mother. Smoking Status: Never smoker alcohol intake: current alcohol intake frequency: a few times a month substance use type: does not use ROS Review of Systems ROS Unobtainable: due to mental condition Vital Signs Vital Signs Vital Signs: 01/30/25 16:33 01/30/25 16:34 01/30/25 17:15 Temperature 90.2 F L Temperature Source Rectal Pulse Rate 94 Respiratory Rate 27 H Respiratory Pattern Kussmaul Blood Pressure 150/119 H Blood Pressure Mean 129 Pulse Ox 98 Oxygen Delivery Method Room Air 01/30/25 17:20 01/30/25 17:37 01/30/25 17:47 Temperature 90.2 F L Temperature Source Rectal Pulse Rate 91 89 Respiratory Rate 28 H 27 H Respiratory Pattern Blood Pressure 84/46 L 88/65 L 85/40 L Blood Pressure Mean 58 72 55 Pulse Ox 97 98 Oxygen Delivery Method Room Air Room Air 01/30/25 18:00 01/30/25 18:28 01/30/25 18:37 Temperature 96.6 F L Temperature Source Temporal Pulse Rate 89 91 92 Respiratory Rate 26 H 25 H 22 H Respiratory Pattern Blood Pressure 85/40 L 98/49 L 91/52 L Blood Pressure Mean 55 65 65 Pulse Ox 99 99 100 Oxygen Delivery Method Room Air Room Air 01/30/25 18:43 Temperature 97.2 F L Temperature Source Pulse Rate 92 Respiratory Rate 23 H Respiratory Pattern Blood Pressure 91/52 L Blood Pressure Mean 65 Pulse Ox 100 Oxygen Delivery Method Weight Weight: 86.3 kg Body Mass Index (BMI) 24.4 Physical Exam Const alert Constitutional Narrative: Young male, very fatigued and pale appearing, alert but lethargic and only able to shake head yes or no to questions, otherwise laying back fairly comfortably in bed. Orientation / Consciousness: lethargic HEENT normocephalic and head/scalp atraumatic HEENT Narrative: Dry mucous membranes. Eyes PERRL, EOMs intact bilaterally and conjunctivae normal Neck supple Resp no retractions and clear to auscultation bilaterally Resp Narrative: Increased respiration rate noted. Otherwise with good air movement bilaterally on room air, no wheezing or crackles noted. Cardio no murmurs Cardio Narrative: Tachycardic, regular rhythm. GI normal to inspection, nondistended, normoactive bowel sounds, soft to palpation and non-distended Extremity normal to inspection Results Lab / Micro Data 01/30/25 16:55 01/30/25 19:29 Labs: Laboratory Results - last 24 hr 01/30/25 16:49: POC Glucose > 500 H* 01/30/25 16:55: WBC 37.0 H*, RBC 5.41, Hgb 12.3 L, Hct 43.0, MCV 79.5 L, MCH 22.7 L, MCHC 28.6 L, RDW Std Deviation 41.8, RDW Coeff of Rabia 14.7 H, Plt Count 638 H, MPV 10.6, Immature Gran % (Auto) 2.000 H, Neut % (Auto) 75.2 H, Lymph % (Auto) 15.3 L, [place] % (Auto) 6.7, Eos % (Auto) 0.1, Baso % (Auto) 0.7, Absolute Neuts (auto) 27.9 H, Absolute Lymphs (auto) 5.67 H, Nucleated RBC % 0, Differential Comment SCANNED, Diff Path Review [place], Sodium 127 L, Potassium 6.2 H*, Chloride 79 L, Carbon Dioxide < 2.0 L*, Anion Gap UNABLE TO CALCULATE L, BUN 44 H, Creatinine 2.60 H, Estim Creat Clear Calc 50.94, Est GFR (MDRD) Non-Af 34 L, BUN/Creatinine Ratio 16.8, Glucose 924 H*, Calcium 9.8, Phosphorus 10.7 H*, Magnesium 2.8 H 01/30/25 16:59: Urine Color Yellow, Urine Clarity Clear, Urine pH 5.0, Ur Specific [place] 1.020, Urine Protein 30 H, Urine Glucose (UA) 1000 H, Urine Ketones 150 A*, Urine Occult Blood 10 H, Urine Nitrite Negative, Urine Bilirubin Negative, Urine Urobilinogen Normal, Ur Leukocyte Esterase Negative, Urine RBC 0 SEEN, Urine WBC 0 SEEN, Ur Squamous Epith Cells 0 SEEN, Urine Bacteria RARE, Urine Mucus 0 SEEN 01/30/25 17:20: POC Glucose > 500 H* 01/30/25 18:18: POC Glucose > 500 H* ABG Data ABG results: ABG 01/30/25 17:00 Specimen Type MARILYNN Sample Site Not entered VBG pH 6.71 L* VBG pO2 138 H VBG Total CO2 < 5 L VBG O2 Sat (Calc) 94 H VBG Base Excess < -30 L POC Mix VBG pCO2 Pt Tmp 18.9 L* O2 Delivery Device Not entered Crit Call To/Read Back Yes Blood Gas Notified Whom loera Blood Gas Notified Time 17:02:02 Imaging Radiology Impression Chest X-Ray 01/30/25 17:35 IMPRESSION: Negative Chest. Reading Location: [facility] Assessment & Plan Assessment/Plan (1) Metabolic acidosis: (2) DKA (diabetic ketoacidosis): QUALIFIERS: Diabetes mellitus type: type 1 Diabetes mellitus complication detail: without coma Qualified Code(s): E10.10 - Type 1 diabetes mellitus with ketoacidosis without coma PLAN: Plan Patient is a 24-year-old male who presented to [facility] ED on 01/30/2025 with altered mentation. 1. Severe metabolic acidosis secondary to DKA; history of poorly controlled type 1 diabetes mellitus with recurrent admissions for DKA ? Admit under inpatient status to ICU. ABG with pH 6.71 on admit. Initially with altered mentation but protecting airway, did not require intubation. Blood glucose 974, beta-hydroxybutyrate 14. A1c has consistently been around 13 on previous labs, last A1c of 13.0 in December. Given heavy IV fluids and several amps of bicarb in the ED and started on insulin drip and bicarbonate drip. Slowly showing signs of improvement. Continue insulin drip and bicarbonate drip at this time. Continue to monitor BMP every 4 hours for now. 2. RADHA ? Creatinine 2.60 on admit, baseline 0.7. Presumed prerenal RADHA in setting of severe dehydration. Treating as above, follow-up a.m. BMP and monitor urine output. 3. Severe leukocytosis ? WBC count 37 on admit. Procalcitonin mildly elevated at 0.33. Chest x-ray clear and UA negative. Unclear on possible source of infection but will treat empirically with IV vancomycin and Zosyn for now. Follow-up infectious workup. 4. Pseudohyponatremia ? Sodium 127 on admit, corrected sodium 141 in setting of severe hyperglycemia. 5. History of medical nonadherence ? Known history, has presented here many times with recurrent DKA. 6. Hyperkalemia ? Potassium 6.2 on admit, slightly improved to 5.9 on repeat labs. Should continue to improve with IV fluids and insulin drip, continue to monitor frequent labs. Chronic medical conditions: ? History of gastroparesis secondary to poorly controlled diabetes: Has been on Reglan in the past but is not on this currently. ? History of PE/DVT: Was on Xarelto in the past but this was stopped in June 2024. ? Depression: Previously on mirtazapine, not on any medications currently for this. ? History of pericarditis with pericardial infection: Admitted to [facility] in 2021 and found to have MSSA and pericardial fluid. No current issues. ? GERD: History of Minerva esophagitis that resolved. Not currently on any PPI, will not prescribe PPI here. ? Chronic anemia: Hemoglobin 12.3 on admit, baseline around 9-10. Presume hemoglobin is hemoconcentrated, follow-up a.m. CBC. DVT prophylaxis: Heparin subcu CODE STATUS: Full code, unverified Expected disposition: TBD Total clinical time spent by myself addressing the patient's medical issues, reviewing all the data, and collaborating with patient's care team: 75 minutes. Charges/Coding Visit Charges Inpatient E&M: 06683 Init Hosp L3
[2025-01-30] MEDS: 0.9% Normal Saline (1000mL) 1,000 ML 1000 ML IV (18:59)
[2025-01-30] MEDS: Doxycycline 100 MG in 0.9% Normal Saline (250mL Bag) 250 ML 250 MG IV (19:04)
[2025-01-30 19:11] LABS: BUN 44 mg/dL (4-19)
[2025-01-30 19:12] LABS: BUN/Creat Ratio 16.8 RATIO (10-20); Calcium,Total 9.8 mg/dL (7.6-11.0); Chloride 79 mmol/L (98-108); EST Glomerular Filtration Rate 34 (>60); Magnesium 2.8 mg/dL (1.5-2.2); Phosphorus 5.2 mg/dL (2.7-4.5); Sodium Level 127 mmol/L (133-145)
[2025-01-30 19:13] LABS: Glucose 924 mg/dL (70-99)
--- NOTE | 2025-01-30 19:13 | ED.RN ---
ATTEMPTED TO CALL REPORT TO ICU. RECEIVING RN REFUSED AT THIS TIME I HAVE TO TAKE REPORT ON THE OTHER PT. FIRST. PLEASE CALL BACK
[2025-01-30 19:14] LABS: Carbon Dioxide < 2.0 mmol/L (21.0-32.0); Potassium 6.2 mmol/L (3.3-5.1)
[2025-01-30 19:15] LABS: BETA-HYDROXYBUTYRATE 14.2 mmol/L (0.0-0.3)
[2025-01-30 19:17] LABS: Glucose 878 mg/dL (70-99)
--- NOTE | 2025-01-30 19:17 | ED.RN ---
LAB CALLED FOR GLUCOSE RESULTS. RESPONSE IT IS 878.
--- NOTE | 2025-01-30 19:31 | ED.RN ---
First one hour insulin titration done late as lab did not have results of repeat blood glucose until one hour after initial titration due.
[2025-01-30 19:42] LABS: Bedside Glucose > 500 mg/dL (74-106)
[2025-01-30 19:54] LABS: Blood Gas Specimen Type VEN; O2 Delivery Device Room Air; SITE Not entered; VBG BASE EXCESS < -30 mmol/L (-1.0-3.5); VBG PO2 89 mmHg (25-40); VBG SO2 85 % (50-70); VBG TCO2 < 5 mmol/L (23-33); VBG pCO2 17.3 mmHg (41-51); VBG pH 6.81 (7.32-7.42)
[2025-01-30 19:54] LABS: Procalcitonin 0.33 ng/mL (<=0.10)
[2025-01-30 20:15] LABS: Anion Gap 41 (5-15); BUN 46 mg/dL (4-19); BUN/Creat Ratio 19.2 RATIO (10-20); Calcium,Total 8.2 mg/dL (7.6-11.0); Carbon Dioxide 2.1 mmol/L (21.0-32.0); Chloride 89 mmol/L (98-108); Creatinine, Serum 2.39 mg/dL (0.70-1.20); EST Glomerular Filtration Rate 38 (>60); Estimated Creatinine Clearance 55.41 ml/min (50-250); Glucose 769 mg/dL (70-99); Potassium 5.9 mmol/L (3.3-5.1); Sodium Level 132 mmol/L (133-145)
--- NOTE | 2025-01-30 20:18 | ED.RN ---
Restraints discontinued. Pt cooperative.
[2025-01-30] MEDS: Heparin Injection (Vial) 5,000 UNIT/ML VIAL 5000 UNIT SC (21:25)
[2025-01-30 22:25] LABS: Bedside Glucose 468 mg/dL (74-106)
[2025-01-30] MEDS: Lactated Ringers 1,000 ML 150 ML IV (22:26)
[2025-01-30 23:24] LABS: Bedside Glucose 452 mg/dL (74-106)
[2025-01-31] VITALS (25 sets, daily range): BP systolic 85–109; BP diastolic 46–74; PULSE 103–126; RESP 12–22; TEMP 36.6–36.9; O2SAT 93–100; BMI 24.0
[2025-01-31 00:14] LABS: Anion Gap 38 (5-15); BUN 43 mg/dL (4-19); BUN/Creat Ratio 20.1 RATIO (10-20); Calcium,Total 8.6 mg/dL (7.6-11.0); Carbon Dioxide 4.5 mmol/L (21.0-32.0); Chloride 95 mmol/L (98-108); Creatinine, Serum 2.16 mg/dL (0.70-1.20); EST Glomerular Filtration Rate 43 (>60); Glucose 535 mg/dL (70-99); Potassium 4.6 mmol/L (3.3-5.1); Sodium Level 138 mmol/L (133-145)
[2025-01-31 00:20] LABS: Bedside Glucose 446 mg/dL (74-106)
[2025-01-31 01:35] LABS: Bedside Glucose 411 mg/dL (74-106)
[2025-01-31 02:22] LABS: Bedside Glucose 349 mg/dL (74-106)
[2025-01-31] MEDS: Sodium Bicarbonate 100 MEQ in Dextrose 5%-Water (1000mL Bag) 1,000 ML 200 MEQ IV (02:23)
[2025-01-31 02:40] LABS: Anion Gap 32 (5-15); BUN 37 mg/dL (4-19); BUN/Creat Ratio 19.5 RATIO (10-20); Calcium,Total 8.8 mg/dL (7.6-11.0); Chloride 98 mmol/L (98-108); Creatinine, Serum 1.92 mg/dL (0.70-1.20); EST Glomerular Filtration Rate 49 (>60); Estimated Creatinine Clearance 67.05 ml/min (50-250); Glucose 433 mg/dL (70-99); Potassium 4.4 mmol/L (3.3-5.1); Sodium Level 139 mmol/L (133-145)
[2025-01-31] MEDS: Ondansetron 4 MG/2 ML Vial IV ×2 (03:11→10:31)
[2025-01-31 03:26] LABS: Bedside Glucose 346 mg/dL (74-106)
[2025-01-31 04:27] LABS: Bedside Glucose 307 mg/dL (74-106)
[2025-01-31] MEDS: Lactated Ringers 1,000 ML 150 ML IV (05:07)
[2025-01-31 05:19] LABS: Bedside Glucose 488 mg/dL (74-106)
[2025-01-31] MEDS: Piperacil/Tazobactam 3.375 GM in 0.9% Normal Saline (50mL MB+) 50 ML IV (06:11)
[2025-01-31] MEDS: 0.9% Saline Lock 10 ML Syringe IV (06:12)
[2025-01-31 06:27] LABS: Absolute Lymphocyte Count 0.99 X10^3/uL (0.83-4.51); Absolute Neutrophil Count 13.6 X10^3/uL (2.0-7.7); Basophil# 0.02 X10^3/uL; Basophil% 0.1 % (0-1); Hemoglobin 9.7 g/dL (13.0-16.5); Lymphocyte # 0.99 X10^3/ul (0.83-4.51); Lymphocyte % 6.3 % (19-41); Mean Corp Hgb Conc 33.4 g/dL (32-36); Mean Corpuscular Hgb 22.6 pg (27.0-32.0); Mean Corpuscular Volume 67.6 fL (80-94); Monocyte# 0.88 X10^3/uL; Monocyte% 5.6 % (0-10); NRBC Flagged by Analyzer 0 % (0-5); Neutrophil # 13.63 X10^3/uL (2.7-7.7); Neutrophil % 86.9 % (47-70); Platelet Count 335 K/mm3 (150-450); RBC Distribution Width CV 14.8 % (11.6-14.6); RBC Distribution Width SD 34.9 fl (35.1-43.9); Red Blood Count 4.29 M/mm3 (4.6-6.2); White Blood Count 15.7 K/mm3 (4.4-11.0)
--- NOTE | 2025-01-31 06:32 | NURSING ---
this RN paused continuous LR infusion to run Zosyn. LR paused due to IV incompatibilities and poor venous access. Zosyn infusing at this time
[2025-01-31 07:15] LABS: Bedside Glucose 321 mg/dL (74-106)
[2025-01-31 07:16] LABS: Bedside Glucose 284 mg/dL (74-106)
[2025-01-31 07:18] LABS: Bedside Glucose 293 mg/dL (74-106)
[2025-01-31 07:28] LABS: Anion Gap 21 (5-15); BUN 32 mg/dL (4-19); BUN/Creat Ratio 22.7 RATIO (10-20); Calcium,Total 6.8 mg/dL (7.6-11.0); Carbon Dioxide 15.8 mmol/L (21.0-32.0); Chloride 102 mmol/L (98-108); Creatinine, Serum 1.43 mg/dL (0.70-1.20); EST Glomerular Filtration Rate 70 (>60); Estimated Creatinine Clearance 90.02 ml/min (50-250); Glucose 309 mg/dL (70-99); Potassium 3.7 mmol/L (3.3-5.1); Sodium Level 139 mmol/L (133-145)
--- NOTE | 2025-01-31 08:29 | PN.HOSP_ITS ---
Reason for Visit Reason for Visit: Diagnoses Type 1 diabetes mellitus with ketoacidosis without coma (01/30/25) Acidosis, unspecified (01/30/25) Objective Data Objective Data Vital Signs: Vital Signs Temp Pulse Resp BP Pulse Ox O2 Del Method 97.7 F L 125 H 22 H 97/63 100 Room Air 01/30/25 21:30 01/31/25 07:00 01/31/25 07:00 01/31/25 07:00 01/31/25 07:00 01/31/25 07:00 Oxygen Delivery Method Room Air Weight: 181 lb 14.102 oz Body Mass Index (BMI) 24.0 Intake & Output: Intake and Output for Last 24 Hours 01/29/25 01/30/25 01/31/25 23:59 23:59 23:59 Intake Total 3773.82 / 3773.82 1916.16 / 1916.16 Output Total 1000 / 2200 2800 / 2800 Balance 2773.82 / 1573.82 -883.84 / -883.84 Lab / Micro Data 01/31/25 06:13 01/31/25 06:13 Labs: Laboratory Results - last 24 hr 01/30/25 16:49: POC Glucose > 500 H* 01/30/25 16:55: WBC 37.0 H*, RBC 5.41, Hgb 12.3 L, Hct 43.0, MCV 79.5 L, MCH 22.7 L, MCHC 28.6 L, RDW Std Deviation 41.8, RDW Coeff of Rabia 14.7 H, Plt Count 638 H, MPV 10.6, Immature Gran % (Auto) 2.000 H, Neut % (Auto) 75.2 H, Lymph % (Auto) 15.3 L, Brooke % (Auto) 6.7, Eos % (Auto) 0.1, Baso % (Auto) 0.7, Absolute Neuts (auto) 27.9 H, Absolute Lymphs (auto) 5.67 H, Nucleated RBC % 0, Differential Comment SCANNED, Diff Path Review March, Sodium 127 L, Potassium 6.2 H*, Chloride 79 L, Carbon Dioxide < 2.0 L*, Anion Gap TNP, BUN 44 H, C reatinine 2.60 H, Estim Creat Clear Calc 50.94, Est GFR (MDRD) Non-Af 34 L, BUN/Creatinine Ratio 16.8, Glucose 924 H*, Calcium 9.8, Phosphorus 5.2 H, M agnesium 2.8 H, b-Hydroxybutyric mmol/L 14.2 01/30/25 16:59: Urine Color Yellow, Urine Clarity Clear, Urine pH 5.0, Ur Specific [place] 1.020, Urine Protein 30 H, Urine Glucose (UA) 1000 H, Urine Ketones 150 A*, Urine Occult Blood 10 H, Urine Nitrite Negative, Urine Bilirubin Negative, Urine Urobilinogen Normal, Ur Leukocyte Esterase Negative, Urine RBC 0 SEEN, Urine WBC 0 SEEN, Ur Squamous Epith Cells 0 SEEN, Urine Bacteria RARE, Urine Mucus 0 SEEN 01/30/25 17:20: POC Glucose > 500 H* 01/30/25 18:18: POC Glucose > 500 H* 01/30/25 18:30: Glucose 878 H*, Procalcitonin 0.33 H 01/30/25 19:24: POC Glucose > 500 H* 01/30/25 19:29: Sodium 132 L, Potassium 5.9 H, Chloride 89 L, Carbon Dioxide 2.1 L*, Anion Gap 41 H, BUN 46 H, Creatinine 2.39 H, Estim Creat Clear Calc 55.41, E st GFR (MDRD) Non-Af 38 L, BUN/Creatinine Ratio 19.2, Glucose 769 H* 01/30/25 19:29: Glucose Cancelled, Calcium 8.2 01/30/25 21:09: POC Glucose 488 H* 01/30/25 22:05: POC Glucose 468 H* 01/30/25 23:00: Sodium 138, Potassium 4.6, Chloride 95 L, Carbon Dioxide 4.5 L*, Anion Gap 38 H, BUN 43 H, Creatinine 2.16 H, Estim Creat Clear Calc 59.60, Est GFR (MDRD) Non-Af 43 L, BUN/Creatinine Ratio 20.1 H, Glucose 535 H*, Calcium 8.6 01/30/25 23:05: POC Glucose 452 H* 01/31/25 00:01: POC Glucose 446 H 01/31/25 01:17: POC Glucose 411 H 01/31/25 02:03: POC Glucose 349 H 01/31/25 02:12: Sodium 139, Potassium 4.4, Chloride 98, Carbon Dioxide 9.0 L*, A nion Gap 32 H, BUN 37 H, Creatinine 1.92 H, Estim Creat Clear Calc 67.05, Est GFR (MDRD) Non-Af 49 L, BUN/Creatinine Ratio 19.5, Glucose 433 H, Calcium 8.8 01/31/25 03:07: POC Glucose 346 H 01/31/25 04:09: POC Glucose 307 H 01/31/25 05:07: POC Glucose 321 H 01/31/25 06:13: WBC 15.7 H, RBC 4.29 L, Hgb 9.7 L, Hct 29.0 L, MCV 67.6 L D, MCH 22.6 L, MCHC 33.4 D, RDW Std Deviation 34.9 L, RDW Coeff of Rabia 14.8 H, Plt Count 335, MPV 9.0, Immature Gran % (Auto) 1.100 H, Neut % (Auto) 86.9 H, Lymph % (Auto) 6.3 L, Brooke % (Auto) 5.6, Eos % (Auto) 0.0, Baso % (Auto) 0.1, Absolute Neuts (auto) 13.6 H, Absolute Lymphs (auto) 0.99, Nucleated RBC % 0, Sodium 139, Potassium 3.7, Chloride 102, Carbon Dioxide 15.8 L, Anion Gap 21 H, BUN 32 H, C reatinine 1.43 H, Estim Creat Clear Calc 90.02, Est GFR (MDRD) Non-Af 70, B UN/Creatinine Ratio 22.7 H, Glucose 309 H, Calcium 6.8 L 01/31/25 06:15: POC Glucose 284 H 01/31/25 06:54: POC Glucose 293 H ABG Data ABG results: ABG 01/30/25 01/30/25 17:00 19:49 Specimen Type MARILYNN MARILYNN Sample Site Not entered Not entered VBG pH 6.71 L* 6.81 L* VBG pO2 138 H 89 H VBG Total CO2 < 5 L < 5 L VBG O2 Sat (Calc) 94 H 85 H VBG Base Excess < -30 L < -30 L POC Mix VBG pCO2 Pt Tmp 18.9 L* 17.3 L* O2 Delivery Device Not entered Room Air Crit Call To/Read Back Yes Yes Blood Gas Notified Whom loera Loera Blood Gas Notified Time 17:02:02 19:51:08 Radiography Diagnostic Testing: Radiology Impression Chest X-Ray 01/30/25 17:35 IMPRESSION: Negative Chest. Reading Location: [facility] Assessment & Plan Assessment/Plan (1) Metabolic acidosis: (2) DKA (diabetic ketoacidosis): QUALIFIERS: Diabetes mellitus type: type 1 Diabetes mellitus complication detail: without coma Qualified Code(s): E10.10 - Type 1 diabetes mellitus with ketoacidosis without coma PLAN: Plan Patient is a 24-year-old male who presented to [facility] ED on 01/30/2025 with altered mentation. 1. Severe metabolic acidosis secondary to DKA; history of poorly controlled type 1 diabetes mellitus with recurrent admissions for DKA ? Admit under inpatient status to ICU. ABG with pH 6.71 on admit. Initially with altered mentation but protecting airway, did not require intubation. Blood glucose 974, beta-hydroxybutyrate 14. A1c has consistently been around 13 on previous labs, last A1c of 13.0 in December. Given heavy IV fluids and several amps of bicarb in the ED and started on insulin drip and bicarbonate drip. Slowly showing signs of improvement. Continue insulin drip and bicarbonate drip at this time. Continue to monitor BMP every 4 hours for now. 01/31: +1.9 L fluid balance. Total urine output documented 3800 mL since admission. Patient still looks dehydrated. Anion gap is still elevated 21, bicarb 15.8. ABG ordered at this previous [facility] showed pH 6.71 and 6.81. Severe metabolic acidosis. Bicarb drip 150 mEq/L ordered at 150 mL/h. Glucose is about 300s 2. RADHA ? Creatinine 2.60 on admit, baseline 0.7. Presumed prerenal RADHA in setting of severe dehydration. Treating as above, follow-up a.m. BMP and monitor urine output. 01/31: Kidney function better, BUN/Crea 32/1.43 3. Severe leukocytosis ? WBC count 37 on admit. Procalcitonin mildly elevated at 0.33. Chest x-ray clear and UA negative. Patient empirically started on IV antibiotics vancomycin and Zosyn, unclear reason, not indicated. Leukocytosis, rest, and DKA because of severe inflammatory response and marginalization of leukocytes. 01/31: Detailed history taking, no possible source of infection found. Leukocytosis improving. Discontinue antibiotics Zosyn. Follow-up cultures. Blood cultures and urine cultures pending 4. Pseudohyponatremia ? Sodium 127 on admit, corrected sodium 141 in setting of severe hyperglycemia. 5. History of medical nonadherence ? Known history, has presented here many times with recurrent DKA. 6. Hyperkalemia ? Potassium 6.2 on admit, slightly improved to 5.9 on repeat labs. Should continue to improve with IV fluids and insulin drip, continue to monitor frequent labs. 01/31 hyperkalemia from metabolic acidosis and DKA has resolved. Chronic medical conditions: ? History of gastroparesis secondary to poorly controlled diabetes: Has been on Reglan in the past but is not on this currently. ? History of PE/DVT: Was on Xarelto in the past but this was stopped in June 2024. ? Depression: Previously on mirtazapine, not on any medications currently for this. ? History of pericarditis with pericardial infection: Admitted to [facility] in 2021 and found to have MSSA and pericardial fluid. No current issues. ? GERD: History of Minerva esophagitis that resolved. Not currently on any PPI, will not prescribe PPI here. ? Chronic anemia: Hemoglobin 12.3 on admit, baseline around 9-10. Presume hemoglobin is hemoconcentrated, follow-up a.m. CBC. DVT prophylaxis: Heparin subcu CODE STATUS: Full code, unverified Charges/Coding Visit Charges Inpatient E&M: 64251 [facility] Hosp L3
[2025-01-31 08:39] LABS: Bedside Glucose 251 mg/dL (74-106)
[2025-01-31 09:27] LABS: Allen Test Positive; Base Excess -2 mmol/L (-2 to +2); Bicarbonate 22.8 mmol/L (22-26); Blood Gas Specimen Type ART; Mode Not entered; O2 Delivery Device Not entered; PO2 77 mmHG (75-100); SITE L Brach; SO2 96 % (95-99); Total Carbon Dioxide 24 mmol/L; pCO2 34.7 mmHg (35-45); pH 7.43 (7.35-7.45)
[2025-01-31 09:38] LABS: Bedside Glucose 223 mg/dL (74-106)
[2025-01-31 10:29] LABS: Bedside Glucose 191 mg/dL (74-106)
[2025-01-31] MEDS: Heparin Injection (Vial) 5,000 UNIT/ML VIAL 5000 UNIT SC ×2 (10:31→20:22)
[2025-01-31] MEDS: Sodium Bicarbonate 150 MEQ in Dextrose 5%-Water (1000mL Bag) 1,000 ML IV (10:31)
[2025-01-31 11:06] LABS: Anion Gap 17 (5-15); BUN 32 mg/dL (4-19); BUN/Creat Ratio 22.5 RATIO (10-20); Calcium,Total 8.4 mg/dL (7.6-11.0); Carbon Dioxide 19.8 mmol/L (21.0-32.0); Chloride 103 mmol/L (98-108); Creatinine, Serum 1.42 mg/dL (0.70-1.20); EST Glomerular Filtration Rate 71 (>60); Estimated Creatinine Clearance 90.65 ml/min (50-250); Glucose 213 mg/dL (70-99); Potassium 3.3 mmol/L (3.3-5.1); Sodium Level 139 mmol/L (133-145)
[2025-01-31 11:53] LABS: Bedside Glucose 167 mg/dL (74-106)
--- NOTE | 2025-01-31 12:30 | CASEMGMT ---
VERONA FONTANEZ Assessment Face to Face with patient for initial transition planning/care coordination assessment. VERONA FONTANEZ introduced self and role at [facility], pt voices understanding. Pt is A&Ox4 and is resting comfortably in bed in no distress. Care providers, pharmacy, and demographics verified. Admitting Dx: Severe DKA PCP: Jose Alberto Elise Specialists: Mandi Long) Pt reports a recent appt. Preferred Pharmacy: [facility] Insurance: [employer] Prescription Benefit: Yes LNOK: Ines Light (GM), Sobia Light (Aunt) Living Arrangements: Pt lives with his family (GM, Aunt, Mom, Brother, and cousin) in a 2 story home with 5 steps to enter. ADLs/IADLs: Ind. Denies concerns Transportation: Pt does not drive. Pt states that his GM is his main source of transportation and denies concerns with transportation. DME: CGM with sufficient supply of sensors. Pt also has a BGM with sufficient supply of strips and lancets as well. Pt has insulin and needles also. HHC/SNF: Pt has had HHC in the past, unable to recall name as well as CCN. Pt denies need for any homegoing services. Pt?s goal: Home Plan: Home [facility].
[2025-01-31 12:55] LABS: Bedside Glucose 155 mg/dL (74-106)
[2025-01-31 14:00] LABS: Bedside Glucose 145 mg/dL (74-106)
[2025-01-31] MEDS: Insulin Lispro 100 UNIT in 0.9% Normal Saline (100mL Bag) 99 ML CONT INF (14:16)
[2025-01-31 14:28] LABS: Anion Gap 14 (5-15); BUN 29 mg/dL (4-19); BUN/Creat Ratio 21.7 RATIO (10-20); Calcium,Total 8.2 mg/dL (7.6-11.0); Carbon Dioxide 23.1 mmol/L (21.0-32.0); Chloride 101 mmol/L (98-108); Creatinine, Serum 1.34 mg/dL (0.70-1.20); EST Glomerular Filtration Rate 76 (>60); Estimated Creatinine Clearance 96.07 ml/min (50-250); Glucose 152 mg/dL (70-99); Sodium Level 139 mmol/L (133-145)
[2025-01-31 15:32] LABS: Bedside Glucose 115 mg/dL (74-106)
[2025-01-31] MEDS: Potassium Chloride 40 MEQ in Dext 5%-0.45% NS 1,000 ML 125 MEQ IV ×2 (15:51→22:50)
[2025-01-31 17:31] LABS: Bedside Glucose 124 mg/dL (74-106)
[2025-01-31 18:30] LABS: Anion Gap 12 (5-15); BUN 27 mg/dL (4-19); BUN/Creat Ratio 23.4 RATIO (10-20); Calcium,Total 8.3 mg/dL (7.6-11.0); Carbon Dioxide 25.9 mmol/L (21.0-32.0); Chloride 103 mmol/L (98-108); Creatinine, Serum 1.16 mg/dL (0.70-1.20); EST Glomerular Filtration Rate 90 (>60); Estimated Creatinine Clearance 110.97 ml/min (50-250); Glucose 115 mg/dL (70-99); Sodium Level 140 mmol/L (133-145)
[2025-01-31 20:07] LABS: Bedside Glucose 77 mg/dL (74-106)
--- NOTE | 2025-01-31 20:16 | NURSING ---
MD order to feed Pt, initiate Sub-Q insulin, maintain active insulin drip for 4 hours post initiation. Blood Glucose 77. Pt eating. Insulin drip decreased from 5.5units/hr to 1.5units/hr R/T current BG. Will recheck BG in 1 hour and titrate insulin drip accordingly. Pt A&Ox4, VSS, AF, RA. Mild Nausea reported, no emesis. PRN Zofran offered. Support and education provided. No additional needs or concerns verbalized or identified.
[2025-01-31] MEDS: Insulin Glargine-YFGN 100 UNIT/ML Pen 8 UNIT SC (20:21)
--- NOTE | 2025-01-31 21:02 | NURSING ---
Insulin drip returned to 5.5 units/hr as after Pt ate, BG increased from 77 to 146. Will continue to monitor closely. Drip to be discontinued in 3 hours per Md DWYER.
[2025-01-31 21:17] LABS: Bedside Glucose 146 mg/dL (74-106)
[2025-01-31 22:20] LABS: Bedside Glucose 159 mg/dL (74-106)
[2025-02-01] VITALS (18 sets, daily range): BP systolic 76–119; BP diastolic 35–71; PULSE 96–125; RESP 14–26; TEMP 36.7–36.9; O2SAT 93–100; BMI 25.4
[2025-02-01 00:04] LABS: Bedside Glucose 144 mg/dL (74-106)
[2025-02-01 00:21] LABS: Bedside Glucose 95 mg/dL (74-106)
[2025-02-01 05:49] LABS: Absolute Lymphocyte Count 1.18 X10^3/uL (0.83-4.51); Basophil# 0.03 X10^3/uL; Basophil% 0.4 % (0-1); Eosinophil# 0.03 X10^3/uL; Eosinophils% 0.4 % (0-5); Hematocrit 25.3 % (40-54); Hemoglobin 8.2 g/dL (13.0-16.5); Lymphocyte # 1.18 X10^3/ul (0.83-4.51); Lymphocyte % 17.5 % (19-41); Mean Corp Hgb Conc 32.4 g/dL (32-36); Mean Corpuscular Hgb 22.6 pg (27.0-32.0); Mean Corpuscular Volume 69.7 fL (80-94); Mean Platelet Vol. 8.7 fl (6.2-12.0); Monocyte# 0.49 X10^3/uL; Monocyte% 7.2 % (0-10); NRBC Flagged by Analyzer 0 % (0-5); Neutrophil % 74.1 % (47-70); Platelet Count 206 K/mm3 (150-450); RBC Distribution Width CV 15.5 % (11.6-14.6); RBC Distribution Width SD 38.8 fl (35.1-43.9); Red Blood Count 3.63 M/mm3 (4.6-6.2); White Blood Count 6.8 K/mm3 (4.4-11.0)
[2025-02-01 06:25] LABS: Anion Gap 13 (5-15); BUN 17 mg/dL (4-19); BUN/Creat Ratio 17.5 RATIO (10-20); Calcium,Total 7.6 mg/dL (7.6-11.0); Carbon Dioxide 21.1 mmol/L (21.0-32.0); Chloride 99 mmol/L (98-108); Creatinine, Serum 0.95 mg/dL (0.70-1.20); EST Glomerular Filtration Rate 115 (>60); Glucose 257 mg/dL (70-99); Potassium 3.4 mmol/L (3.3-5.1); Sodium Level 133 mmol/L (133-145)
[2025-02-01] MEDS: 0.9% Saline Lock 10 ML Syringe IV (07:40)
[2025-02-01] MEDS: Insulin Lispro 100 UNIT/ML INSULN.PEN SC ×2 (07:43→11:11)
[2025-02-01 08:10] LABS: Bedside Glucose 275 mg/dL (74-106)
[2025-02-01] MEDS: Insulin Lispro 100 UNIT/ML INSULN.PEN 8 UNIT SC ×2 (08:36→11:12)
[2025-02-01] MEDS: Potassium Chloride Oral Tablet 20 MEQ 40 MEQ PO (08:41)
[2025-02-01] MEDS: Heparin Injection (Vial) 5,000 UNIT/ML VIAL 5000 UNIT SC (09:42)
[2025-02-01] MEDS: Insulin Glargine-YFGN 100 UNIT/ML Pen 15 UNIT SC (09:47)
--- NOTE | 2025-02-01 10:50 | PCM.DC ---
Discharge Instructions Diet Discharge Diet: 1800 Calorie Control Diet DC O2, CPAP, BIPAP needs Home O2 Discharge instructions: No Dressing / Incision Discharge Activity: Return to Normal Activity Weight Bearing Status: Weight bearing as tolerated Dressing / Incision Call your doctor if you observe: Fever of 101 or Higher, Coldness, Increased Pain, Numbness or Tingling, Change in Color, Inability to urinate, Inability to have a bowel movement, Shortness of breath, Dizziness, Fainting spells, Swelling in the ankles, Chest pain, Prolonged hiccupping, Increased palpitations (irregular heartbeat) and Calf discomfort Follow Up Care When: IN 2 WEEKS Test Results: Test results from this visit will be discussed in further detail at your follow-up appointment, if applicable. Discharge Plan Admission Admit Date/Time: 01/30/25 18:54 Primary Reason for Your Visit: DKA Attending Provider: Tha Uribe Primary Care Provider: Christiano Elise Consulting Providers: Anurag Baxter Instructions Additional Instructions / Restrictions: Patient follows outside [facility]ing machine [facility] in [place], [place]. He does not currently remember the name Discharge Orders/Prescriptions Prescriptions: Continued (DME) OneTouch Verio test strips Strip See Rx Instructions .ROUTE .MEDSUPPLY Rx Instructions: 4x/day (DME) FreeStyle Niru 14 Day Sensor Kit See Rx Instructions .ROUTE .MEDSUPPLY Rx Instructions: As directed (DME) pen needle, diabetic 31 gauge x 1/3 needle See Rx Instructions .Route Qty: 100 3RF Rx Instructions: As directed alcohol swabs [BD Alcohol Swabs] Pads, Medicated topical 4X/DAY (DME) blood-glucose meter [True Metrix Glucose Meter] Misc MISCELLANEOUS UD lispro sliding scale Changed insulin lispro [Humalog KwikPen Insulin] 100 unit/mL insulin pen 10 unit subcut .with meals 1 Days Qty: 15 5RF Protocol: 5. Sliding Scale Insulin High Dosing Condition: 150-209 mg/dl = 3 units Condition: 210-259 mg/dl = 6 units Condition: 260-324 mg/dl = 9 units Condition: 325-374 mg/dl = 12 units Condition: 375-409 mg/dl = 14 units Condition: 410-449 mg/dl = 16 units Condition: Greater than 449 call physician Protocol Text: Suggested for: - Patients on Total Daily Insulin Dose of 81-120 units - Very insulin resistant patients HIGH DOSING ALGORITHM Patient Comments: with meals Rx Instructions: 3 times daily with meals insulin glargine [Lantus Solostar U-100 Insulin] 100 unit/mL (3 mL) insulin pen 20 unit subcut DAILY Qty: 15 2RF Patient Comments: UNABLE TO CONFIRM D/T PT. MENTATION Rx Instructions: Hold if glucose less than 130 mg/dl Referrals / Follow Up: Christiano Elise MD [Primary Care Provider] - Within 1 Week Disposition Disposition (needs filled in before D/C Order can be placed): Home, Self Care
--- NOTE | 2025-02-01 11:06 | DS.PCM_ITS ---
Providers Date of Admission: 01/30/25 Date of Discharge: 02/01/25 Primary Care Physician: Dr. Christiano Elise MD Reason For Visit: SEVERE DKA Diagnosis Discharge Diagnosis (1) Metabolic acidosis: Status: Acute Code(s): E87.20 - Acidosis, unspecified (2) DKA (diabetic ketoacidosis): Status: Acute Code(s): E11.10 - Type 2 diabetes mellitus with ketoacidosis without coma Qualifiers: Diabetes mellitus type: type 1 Diabetes mellitus complication detail: w [facility] coma Qualified Code(s): E10.10 - Type 1 diabetes mellitus with ketoacidosis without coma Plan Patient is a 24-year-old male who presented to [facility] ED on 01/30/2025 with altered mentation. 1. Severe metabolic acidosis secondary to DKA; history of poorly controlled type 1 diabetes mellitus with recurrent admissions for DKA ? Admit under inpatient status to ICU. ABG with pH 6.71 on admit. Initially with altered mentation but protecting airway, did not require intubation. Blood glucose 974, beta-hydroxybutyrate 14. A1c has consistently been around 13 on previous labs, last A1c of 13.0 in December. Given heavy IV fluids and several amps of bicarb in the ED and started on insulin drip and bicarbonate drip. Slowly showing signs of improvement. Continue insulin drip and bicarbonate drip at this time. Continue to monitor BMP every 4 hours for now. 01/31: +1.9 L fluid balance. Total urine output documented 3800 mL since admission. Patient still looks dehydrated. Anion gap is still elevated 21, bicarb 15.8. ABG ordered at this previous [facility] showed pH 6.71 and 6.81. Severe metabolic acidosis. Bicarb drip 150 mEq/L ordered at 150 mL/h. Glucose is about 300s 02/01: Glucose is 257 in BMP. A1c 13.0% on 12/23. Glucose 275 the morning. Patient requested prescription of Humalog insulin. Based on the his weight, insulin dose was calculated and prescription given for both Lantus insulin and Humalog insulin. Advised to follow-up triage nurse outside 2 to 3 weeks. Leukocytosis resolved. No infection or sepsis found therefore ruled out. Electrolytes in normal range though sodium and potassium low normal. Patient is in recovery phase of DKA and advised to take insulin could follow-up with her providers. 2. RADHA ? Creatinine 2.60 on admit, baseline 0.7. Presumed prerenal RADHA in setting of severe dehydration. Treating as above, follow-up a.m. BMP and monitor urine output. 01/31: Kidney function better, BUN/Crea 32/1.43 02/01: RADHA resolved. Creatinine 0.95. 3. Severe leukocytosis ? WBC count 37 on admit. Procalcitonin mildly elevated at 0.33. Chest x-ray clear and UA negative. Patient empirically started on IV antibiotics vancomycin and Zosyn, unclear reason, not indicated. Leukocytosis, rest, and DKA because of severe inflammatory response and marginalization of leukocytes. 01/31: Detailed history taking, no possible source of infection found. Leukocytosis improving. Discontinue antibiotics Zosyn. Follow-up cultures. Blood cultures and urine cultures pending 02/01: Leukocytosis resolved. Urine culture no growth. Blood cultures pending. 4. Hypertonic hypovolemic hyperglycemia due to DKA ? Sodium 127 on admit, corrected sodium 141 in setting of severe hyperglycemia. Sodium 133 low normal 5. History of medical nonadherence ? Known history, has presented here many times with recurrent DKA. 6. Hyperkalemia ? Potassium 6.2 on admit, slightly improved to 5.9 on repeat labs. Should continue to improve with IV fluids and insulin drip, continue to monitor frequent labs. 01/31 hyperkalemia from metabolic acidosis and DKA has resolved. Chronic medical conditions: ? History of gastroparesis secondary to poorly controlled diabetes: Has been on Reglan in the past but is not on this currently. ? History of PE/DVT: Was on Xarelto in the past but this was stopped in June 2024. ? Depression: Previously on mirtazapine, not on any medications currently for this. ? History of pericarditis with pericardial infection: Admitted to [facility] in 2021 and found to have MSSA and pericardial fluid. No current issues. ? GERD: History of [place] esophagitis that resolved. Not currently on any PPI, will not prescribe PPI here. ? Chronic anemia: Hemoglobin 12.3 on admit, baseline around 9-10. Presume hemoglobin is hemoconcentrated, follow-up a.m. CBC. DVT prophylaxis: Heparin subcu CODE STATUS: Full code, unverified Discharge medication reconciliation done. Discharge follow-up instructions completed. Discharge process discussed with the patient and all questions were answered to patient's satisfaction. Follow with PCP in 1 to 2 weeks Total time spent, exact 35 minutes on discharge meds reconciliation, examination, coordination of care with nurses and ancillary staff, review of imaging and blood test and discussion with the patient on follow-up instructions. Medications at Discharge Home Medications blood sugar diagnostic (OneTouch Verio test strips) 02/27/23 flash glucose sensor (FreeStyle Niru 14 Day Sensor kit) 02/27/23 pen needle, diabetic 31 gauge x 1/3 #100 ea 07/10/24 alcohol swabs (BD Alcohol Swabs) pad topical 4X/DAY prior to injections 02/01/25 blood-glucose meter (True Metrix Glucose Meter) 02/01/25 insulin glargine 100 unit/mL (3 mL) subcutaneous pen (Lantus Solostar U-100 Insulin) 20 unit (0.2 mL) subcut DAILY diabetes #15 mL 02/01/25 insulin lispro 100 unit/mL subcutaneous pen (Humalog KwikPen (U-100) Insulin) 10 unit subcut .with meals DIABETES 1 day #15 mL 02/01/25 lispro sliding scale diabetes 02/01/25 Physical Exam Narrative Seen and examined Patient does not have abdominal pain. Looks much better and improved compared to yesterday.Still feel weak and fatigued that is expected at the recovery stage of DKA. Physical exam General: Alert, Oriented x3, Cooperative HEENT: Atraumatic, PERRLA, EOMI, Normocephalic Oral: Oral mucosa moist no Gingival or Mucosal Lesions/ Ulcerations Neck: Supple, No JVD, Negative Carotid Bruits Chest wall/Lungs: Air entry diminished in bilateral lung bases. No crepitation/rhonchi Cardiovascular: Regular rate, Regular Rhythm, Normal S1, Normal S2, No M/G/R Abdomen: Bowel Sounds Present, Soft, Non Tender, Non-Distended : No dysuria. No renal angle tenderness. No suprapubic tenderness. Extremities: No edema, Capillary Refill Less than 3 Seconds Skin: No rashes, No breakdown Musculoskeletal: No Tenderness to Palpation of Joints or Extremities Neurological: Cranial nerves II-XII grossly intact, DTR 2+/4. No acute focal neurological deficit. Psych/Mental Status: Flat affect Weight / BMI Weight Weight: 192 lb 7.417 oz Body Mass Index (BMI) 25.4 ABG / Lab / Microbiology Data 02/01/25 05:37 02/01/25 05:37 Laboratory: Laboratory Results - last 24 hr 01/31/25 10:05: Sodium 139, Potassium 3.3, Chloride 103, Carbon Dioxide 19.8 L, Anion Gap 17 H, BUN 32 H, Creatinine 1.42 H, Estim Creat Clear Calc 90.65, Est GFR (MDRD) Non-Af 71, BUN/Creatinine Ratio 22.5 H, Glucose 213 H, Calcium 8.4 01/31/25 11:34: POC Glucose 167 H 01/31/25 12:37: POC Glucose 155 H 01/31/25 13:41: POC Glucose 145 H 01/31/25 13:56: Sodium 139, Potassium 3.0 L, Chloride 101, Carbon Dioxide 23.1, Anion Gap 14, BUN 29 H, Creatinine 1.34 H, Estim Creat Clear Calc 96.07, Est GFR (MDRD) Non-Af 76, BUN/Creatinine Ratio 21.7 H, Glucose 152 H, Calcium 8.2 01/31/25 15:13: POC Glucose 115 H 01/31/25 17:14: POC Glucose 124 H 01/31/25 18:02: Sodium 140, Potassium 3.0 L, Chloride 103, Carbon Dioxide 25.9, Anion Gap 12, BUN 27 H, Creatinine 1.16, Estim Creat Clear Calc 110.97, Est GFR (MDRD) Non-Af 90, BUN/Creatinine Ratio 23.4 H, Glucose 115 H, Calcium 8.3 01/31/25 19:48: POC Glucose 77 01/31/25 20:55: POC Glucose 146 H 01/31/25 21:57: POC Glucose 159 H 01/31/25 22:57: POC Glucose 144 H 02/01/25 00:03: POC Glucose 95 02/01/25 05:37: WBC 6.8, RBC 3.63 L, Hgb 8.2 L, Hct 25.3 L, MCV 69.7 L, MCH 22.6 L, MCHC 32.4, RDW Std Deviation 38.8, RDW Coeff of Rabia 15.5 H, Plt Count 206, MPV 8.7, Immature Gran % (Auto) 0.400, Neut % (Auto) 74.1 H, Lymph % (Auto) 17.5 L, [place] % (Auto) 7.2, Eos % (Auto) 0.4, Baso % (Auto) 0.4, Absolute Neuts (auto) 5.0, Absolute Lymphs (auto) 1.18, Nucleated RBC % 0, Sodium 133, Potassium 3.4, Chloride 99, Carbon Dioxide 21.1, Anion Gap 13, BUN 17, Creatinine 0.95, Estim Creat Clear Calc 135.50, Est GFR (MDRD) Non-Af 115, BUN/Creatinine Ratio 17.5, G lucose 257 H, Calcium 7.6 02/01/25 07:22: POC Glucose 275 H Microbiology: Microbiology 01/30/25 16:59 Urine Catheter - Youssef Urine Culture - Final Culture exhibits no growth. D/C Instructions Discharge Diet: 1800 Calorie Control Diet Weight Bearing Status: Weight bearing as tolerated Call your doctor if you observe: Fever of 101 or Higher, Coldness, Increased Pain, Numbness or Tingling, Change in Color, Inability to urinate, Inability to have a bowel movement, Shortness of breath, Dizziness, Fainting spells, Swelling in the ankles, Chest pain, Prolonged hiccupping, Increased palpitations (irregular heartbeat) and Calf discomfort DC O2, CPAP, BIPAP Needs PSN CPAP & BiPAP: BiPAP & CPAP Settings per PSN Fraction of Inspired Oxygen ( 40 01/31/25 16:00 FIO2) Home O2 Discharge instructions: No When: IN 2 WEEKS Meaningful Use Info Meaningful Use Meaningful Use Diagnoses (Choose all that apply): None applicable Ischemic Stroke Statin Dosing Therapy Reference: STATIN DOSE THERAPY REFERENCE: * Patients > 75 years receive moderate or high dose statin therapy. * Patients 75 years or YOUNGER should receive HIGH intensity statin dose unless contraindicated. You will be required to document reason for non-treatment if statin daily dose does not meet guidelines. HIGH DOSE STATIN THERAPY DAILY Atorvastatin > than or = to 40 mg Rosuvastatin > than or = to 20 mg Amlodipine + Atorvastatin > than or = to 2.5/40 mg Ezetimibe + Simvastatin 10/80 mg Simvastatin 80mg Discharge Plan Admission Admit Date/Time: 01/30/25 18:54 Primary Reason for Your Visit: DKA Attending Provider: Tha Uribe Primary Care Provider: Christiano Elise Consulting Providers: Anurag Baxter Instructions Additional Instructions / Restrictions: Patient follows outside triage nurse in [place], [place]. He does not currently remember the name Discharge Orders/Prescriptions Prescriptions: Continued (DME) OneTouch Verio test strips Strip See Rx Instructions .ROUTE .MEDSUPPLY Rx Instructions: 4x/day (DME) FreeStyle Niru 14 Day Sensor Kit See Rx Instructions .ROUTE .MEDSUPPLY Rx Instructions: As directed (DME) pen needle, diabetic 31 gauge x 1/3 needle See Rx Instructions .Route Qty: 100 3RF Rx Instructions: As directed alcohol swabs [BD Alcohol Swabs] Pads, Medicated topical 4X/DAY (DME) blood-glucose meter [True Metrix Glucose Meter] Misc MISCELLANEOUS UD lispro sliding scale Changed insulin lispro [Humalog KwikPen Insulin] 100 unit/mL insulin pen 10 unit subcut .with meals 1 Days Qty: 15 5RF Protocol: 5. Sliding Scale Insulin High Dosing Condition: 150-209 mg/dl = 3 units Condition: 210-259 mg/dl = 6 units Condition: 260-324 mg/dl = 9 units Condition: 325-374 mg/dl = 12 units Condition: 375-409 mg/dl = 14 units Condition: 410-449 mg/dl = 16 units Condition: Greater than 449 call physician Protocol Text: Suggested for: - Patients on Total Daily Insulin Dose of 81-120 units - Very insulin resistant patients HIGH DOSING ALGORITHM Patient Comments: with meals Rx Instructions: 3 times daily with meals insulin glargine [Lantus Solostar U-100 Insulin] 100 unit/mL (3 mL) insulin pen 20 unit subcut DAILY Qty: 15 2RF Patient Comments: UNABLE TO CONFIRM D/T PT. MENTATION Rx Instructions: Hold if glucose less than 130 mg/dl Referrals / Follow Up: Christiano Elise MD [Primary Care Provider] - Within 1 Week Disposition Disposition (needs filled in before D/C Order can be placed): Home, Self Care Charges/Coding Visit Charges Inpatient E&M: 18133 Disch Hosp >30min
[2025-02-01 12:00] LABS: Bedside Glucose 230 mg/dL (74-106)
== END 2025-02-01 15:02 | disposition home or self-care (01) | DRG 420 ==
LOC: ED 18:17 → ICU 01-31 04:03
PROVIDERS: Obstetrics & Gynecology; Admitting Provider Hospitalist; Emergency Provider Emergency Medicine; PCP Family Medicine; Visit Provider Internal Medicine
DX: E10.10 Type 1 diabetes mellitus with ketoacidosis without coma (principal); G93.41 Metabolic encephalopathy; D64.9 Anemia, unspecified; N17.9 Acute kidney failure, unspecified; E87.5 Hyperkalemia; Z86.718 Personal history of other venous thrombosis and embolism; Z91.148 Patient's other noncompliance with medication regimen for other reason; Z86.711 Personal history of pulmonary embolism
CPT/HCPCS: 36415; 36600; 51702; 71045; 80048; 81001; 82010; 82803; 82947; 82962; 83735; 84100; 84145; 85025; 87040; 87086; 93005; 97802; 99285; A4216; J2405

== ENCOUNTER 2025-02-12 22:39 | Inpatient (IN) | payer MEDICAID, SELFPAY ==
--- NOTE | 2025-02-12 00:35 | RAD_ITS ---
PROCEDURE: CHEST 1 VIEW (PORTABLE) 02/13/2025 REASON FOR EXAM: DYSPNEA TECHNIQUE: Frontal view of the chest. COMPARISON: 01/30/2025 FINDINGS: Lower lung volume study. The lungs appear clear. The cardiac and mediastinal contours appear within limits. The visualized osseous structures appear within limits. RAD/Chest 1 View (Portable) IMPRESSION: Lower lung volume study. No evidence of acute disease. Reading Location: [id number]
[2025-02-12 22:39] VITALS: BP 99/57; PULSE 113; RESP 20; TEMP 36.2; O2SAT 100; BMI 24.3
[2025-02-12 22:41] VITALS: BP 99/57; PULSE 113; RESP 21; TEMP 36.2; O2SAT 100
[2025-02-12 23:00] VITALS: O2SAT 100
[2025-02-12 23:59] VITALS: BP 114/78; PULSE 112; RESP 22; TEMP 36.4; O2SAT 100
[2025-02-12] MEDS: Ondansetron 4 MG/2 ML Vial IV (23:59)
[2025-02-12] MEDS: 0.9% Normal Saline (1000mL) 1,000 ML 999 ML IV (23:59)
[2025-02-13] VITALS (25 sets, daily range): BP systolic 84–113; BP diastolic 44–71; PULSE 104–118; RESP 12–32; TEMP 35.1–38.3; O2SAT 97–100; BMI 23.1
--- NOTE | 2025-02-13 00:17 | EDS_ITS ---
HPI History of Present Illness Chief Complaint: Shortness of Breath Informant: patient and EMS Narrative Narrative: Patient is a 24-year-old male with past medical history of type 1 diabetes and recurrent DKA. He was recently admitted to the hospital in January secondary to DKA exacerbation. Patient states that today he began developing shortness of breath without fevers chills congestion or cough and has also had an episode or 2 of vomiting. Secondary to his persistent unwell feeling he presents for evaluation [facility] Medical History Medical non-compliance Diabetic ketoacidosis History of venous thromboembolism C. difficile enteritis Chronic anticoagulation History of diabetes mellitus Anticoagulant long-term use Anemia due to chronic illness [place] grade D esophagitis [place]a esophagitis Gastroparesis Recurrent pulmonary embolism AP window (aortopulmonary window) Anxiety Depression DVT (deep venous thrombosis) Hypokalemia Noncompliance with diabetes treatment History of medication noncompliance Severe protein-calorie malnutrition Kidney disease Hypokalemia Non-smoker Asthma Psychosocial problem femur surgery Diabetes mellitus type 1 GERD (gastroesophageal reflux disease) Home Medications ?Medication ?Instructions ?Recorded ?Last Taken ?Type blood sugar diagnostic (OneTouch 02/27/23 Unknown His tory Verio test strips) flash glucose sensor (FreeStyle 02/27/23 Unknown Hist ory Niru 14 Day Sensor kit) pen needle, diabetic 31 gauge x #100 ea 07/10/24 Unkno wn Rx 1/3 alcohol swabs (BD Alcohol Swabs) 1 pad topical 4X/DAY prior to 02/01/25 Unknown History injections blood-glucose meter (True Metrix 02/01/25 Unknown His tory Glucose Meter) insulin glargine 100 unit/mL (3 20 unit (0.2 mL) subcu t DAILY 02/01/25 Unknown Rx mL) subcutaneous pen (Lantus diabetes #15 mL Solostar U-100 Insulin) insulin lispro 100 unit/mL 10 unit subcut .with meals 02/01/25 Unknown Rx subcutaneous pen (Humalog KwikPen DIABETES 1 day #15 m L (U-100) Insulin) lispro sliding scale diabetes 02/01/25 Unknown Hi story omeprazole 40 mg capsule,delayed 40 mg PO DAILY gerd 0 02/13/25 Unknown History release Allergy/AdvReac Type Severity Reaction Status Date / Time vancomycin Allergy local Verified 02/12/25 22:42 rash/hives to IV site Family History Father Polysubstance overdose Patient father young secondary to OD. Mother Iron deficiency anemia Other Asthma CVA (cerebral vascular accident) Diabetes Hypertension Thyroid disorder Surgical History H/O right knee surgery History of surgery on extremity Hx of knee surgery Social History housing: other details: Lives with his grandmother, aunt and mother. Smoking Status: Never smoker alcohol intake: current alcohol intake frequency: a few times a month substance use type: does not use ROS ROS ED Constitutional Constitutional ED: Denies chills or fever(s) ENT ENT ED: Denies rhinorrhea or sore throat Cardiovascular Cardiovascular: Reports racing heartbeat; Denies chest pain or palpitations Respiratory/Chest Respiratory/Chest: Reports dyspnea; Denies cough Gastrointestinal Gastrointestinal: Reports nausea and vomiting; Denies abdominal pain or diarrhea Genitourinary Genitourinary ED: Denies dysuria Musculoskeletal Musculoskeletal: Denies myalgias Integumentary Denies rash Neurologic Neurologic: Denies headache(s) Hematologic/Lymphatic Hematologic/Lymphatic: Denies easy bleeding or easy bruising Allergic/Immunologic Allergic/Immunologic ED: Denies mouth swelling or tongue swelling EXAM Physical Exam Const Vital Signs: 02/12/25 22:39 02/12/25 22:41 02/12/25 23:00 Temperature 97.2 F L 97.2 F L Temperature Source Temporal Oral Pulse Rate 113 H 113 H Respiratory Rate 20 H 21 H Respiratory Effort Normal Non-Labored Respiratory Pattern Tachypnea Blood Pressure 99/57 L 99/57 L Blood Pressure Mean 71 71 Pulse Ox 100 100 Oxygen Delivery Method Room Air Room Air Room Air 02/12/25 23:59 02/13/25 01:00 Temperature 97.6 F L Temperature Source Temporal Pulse Rate 112 H 112 H Respiratory Rate 22 H 23 H Respiratory Effort Respiratory Pattern Blood Pressure 114/78 99/59 L Blood Pressure Mean 90 72 Pulse Ox 100 100 Oxygen Delivery Method Room Air Room Air Positive well nourished and well developed General Appearance ED: well developed; Negative for pallor HEENT Reports dry mucous membranes HEENT Narrative: Mucous membranes are dry and tacky No tongue or lip swelling no oral lesions no airway edema or compromise; no secondary findings in the posterior pharynx to suggest infection Mouth ED: Yes dry mucous membranes Mouth: dry mucous membranes Eyes PERRL and EOMs intact bilaterally General Eye ED: Negative for scleral icterus Neck supple Neck Narrative: No nuchal rigidity or meningeal signs Resp clear to auscultation bilaterally Resp Narrative: Patient is tachypneic. Breath sounds are slight diminished throughout but overall clear to auscultation Cardio regular rhythm Rate: tachycardic and other Other Details: Tachycardic rate with regular rhythm GI normal to inspection, nondistended, normoactive bowel sounds, non-tender, non-distended and no masses GI Narrative: No voluntary guarding or rigidity or pulsatile mass Auscultation: normoactive bowel sounds Palpation: soft Extremity normal to inspection Neuro oriented x3, CN's II-XII intact bilaterally and no sensory deficits noted Sensorium / Orientation: alert Motor Exam: strength 5/5 throughout Psych mental status grossly normal Skin no rashes or lesions noted and No skin turgor normal Skin Narrative: Skin turgor is increased General Skin Exam: Negative for jaundice or pallor MDM MDM MDM Narrative Medical decision making narrative: Patient arrived to the ER tachycardic and tachypneic. He reported shortness of breath but he does not have fever or cough and breath sounds are clear going against an infectious process such as pneumonia as a cause of his symptoms. Based on his history of type 1 diabetes as well as recurrent admissions for DKA his presentation is most consistent with this. A chest x-ray was obtained to rule out lung pathology and revealed no acute findings. Blood work showed a decreased serum bicarb with elevated anion gap elevated blood glucose level as well as serum acetone all consistent with DKA. VBG confirmed acidosis with patient's pH of 6.9. Patient was treated with 2 L of IV fluid as well as an insulin drip and bicarb. Based on the need for continued insulin and close monitoring to ensure resolution of the DKA without progression to life- threatening instability the hospitalist was contacted who agrees accept the patient to ICU for further care History & Record Review Discussion w/independent historian: EMS personnel and Patient Lab Data Attestation: I reviewed the patient's lab results. Labs: Laboratory Results - last 24 hr 02/12/25 02/13/25 02/13/25 23:57 01:08 01:16 WBC 12.0 H RBC 4.98 Hgb 11.3 L Hct 37.7 L MCV 75.7 L MCH 22.7 L MCHC 30.0 L RDW Std Deviation 42.5 RDW Coeff of Rabia 15.9 H Plt Count 439 MPV 9.7 Immature Gran % (Auto) 1.300 H Neut % (Auto) 78.0 H Lymph % (Auto) 14.5 L [place] % (Auto) 4.9 Eos % (Auto) 0.3 Baso % (Auto) 1.0 Absolute Neuts (auto) 9.4 H Absolute Lymphs (auto) 1.75 Nucleated RBC % 0 Sodium 127 L Potassium 5.8 H Chloride 88 L Carbon Dioxide 3.1 L* Anion Gap 36 H BUN 19 Creatinine 1.45 H Estim Creat Clear Calc 88.78 Est GFR (MDRD) Non-Af 69 BUN/Creatinine Ratio 13.4 Glucose 743 H* Serum Osmolality 333 H Lactic Acid Cancelled 1.0 Calcium 9.6 Total Bilirubin 0.62 Direct Bilirubin 0.27 AST 20 ALT 23 Alkaline Phosphatase 152 H Total Protein 8.0 Albumin 4.5 Globulin 3.5 Lipase 32 b-Hydroxybutyric mmol/L 13.2 POC Glucose > 500 H* ABG Data ABG results: ABG 02/13/25 00:13 Specimen Type MARILYNN Sample Site Not entered VBG pH 6.93 L* VBG pO2 45 H VBG Total CO2 < 5 L VBG O2 Sat (Calc) 54 VBG Base Excess -28 L POC Mix VBG pCO2 Pt Tmp 19.1 L O2 Delivery Device Room Air Crit Call To/Read Back Yes Blood Gas Notified Whom Andes Blood Gas Notified Time 00:15:08 Radiography Diagnostic Testing: Clinical Impression(s) from Imaging Studies Chest X-Ray 02/12/25 00:35 IMPRESSION: Lower lung volume study. No evidence of acute disease. Reading Location: [facility] Critical Care Time Critical Care Time: Yes Critical care time (excluding procedures): Discussing w/Patient &/or Family/Service Parts Coordinator, Discussing w/Consultants and - (Please note critical care time of 33 minutes) Discharge Plan Dx/Rx/DC Orders Clinical Impression: Type 1 diabetes mellitus, Hyperglycemia, DKA (diabetic ketoacidosis), Anxiety and depression, Chronic anemia Disposition Disposition: Acute Care Hospital [facility] Discharge Date/Time: 02/13/25 02:42
[2025-02-13 00:18] LABS: Blood Gas Specimen Type VEN; O2 Delivery Device Room Air; SITE Not entered; VBG BASE EXCESS -28 mmol/L (-1.0-3.5); VBG PO2 45 mmHg (25-40); VBG SO2 54 % (50-70); VBG TCO2 < 5 mmol/L (23-33); VBG pCO2 19.1 mmHg (41-51); VBG pH 6.93 (7.32-7.42)
[2025-02-13 00:30] LABS: Absolute Lymphocyte Count 1.75 X10^3/uL (0.83-4.51); Absolute Neutrophil Count 9.4 X10^3/uL (2.0-7.7); Basophil# 0.12 X10^3/uL; Eosinophil# 0.04 X10^3/uL; Eosinophils% 0.3 % (0-5); Hematocrit 37.7 % (40-54); Hemoglobin 11.3 g/dL (13.0-16.5); Lymphocyte # 1.75 X10^3/ul (0.83-4.51); Lymphocyte % 14.5 % (19-41); Mean Corpuscular Hgb 22.7 pg (27.0-32.0); Mean Corpuscular Volume 75.7 fL (80-94); Mean Platelet Vol. 9.7 fl (6.2-12.0); Monocyte# 0.59 X10^3/uL; Monocyte% 4.9 % (0-10); NRBC Flagged by Analyzer 0 % (0-5); Neutrophil # 9.37 X10^3/uL (2.7-7.7); Platelet Count 439 K/mm3 (150-450); RBC Distribution Width CV 15.9 % (11.6-14.6); RBC Distribution Width SD 42.5 fl (35.1-43.9); Red Blood Count 4.98 M/mm3 (4.6-6.2)
[2025-02-13 00:47] LABS: Osmolality, Serum 333 mOsm/KG (275-295)
[2025-02-13 01:27] LABS: Bedside Glucose > 500 mg/dL (74-106)
--- NOTE | 2025-02-13 01:39 | PCM.HP.STD ---
HPI - General General Date of Admission: 02/13/25 Date of Service: 02/13/25 Chief Complaint: Elevated BS, N/V/D HPI Narrative The patient is a 24 y/o M w/ PMHx: Hx VTE (DVT, PE on xarelto), Uncontrolled Diabetes mellitus type I with frequent DKA presentations noncomplaint with his insulin and diet, Chronic severe protein calorie malnutrition, Hx 2021 pericarditis/pericardial infection (Treated at [facility], MSSA infection treated with abx therapy), History Stage II L buttock pressure, Hx dysphagia secondary to severe LA grade D erosive esophagitis with candidiasis, Chronic anemia/Fe deficiency anemia, Anxiety and Depression, GERD, most recently discharged 02/01/2025 following evaluation and treatment for severe metabolic acidosis secondary to DKA secondary to history of poorly controlled type 1 diabetes, acute kidney injury as well as leukocytosis empirically treated with antibiotics however blood and urine cultures were unremarkable therefore eventually these were discontinued and leukocytosis resolved secondary to possibly dehydration who now re-presents to the [facility] ED on 02/12/2025 with worsening dyspnea as well as nausea, emesis and loose stools throughout the day not improving prompting eventual ED evaluation. Workup in the ED included T97.2, heart rate 113, BP 99/57, respiratory rate 21, 100% room air, CBC with WBC 12, hemoglobin 0.3, MCV 75.7, platelet 439 with left shift, VBG with pH 6.93, pO2 45 on room air, CMP with sodium 127, potassium 5.8, chloride 88, carbon oxide 3.1, anion gap 36, BUN/creat 19/1.45, GFR 69, glucose 743, serum osmolality 333, hepatic profile unremarkable aside alk phos 152, hydroxybutyrate 13.2, lactic acid 1.0, chest x-ray with no acute cardiopulmonary findings. In the ED patient inserted 2 L normal saline, 100 mEq sodium bicarb, Zofran 4 mg IV x 1 and initiated on insulin drip. [facility] Medical History Medical non-compliance Diabetic ketoacidosis History of venous thromboembolism C. difficile enteritis Chronic anticoagulation History of diabetes mellitus Anticoagulant long-term use Anemia due to chronic illness [place] grade D esophagitis Minerva esophagitis Gastroparesis Recurrent pulmonary embolism AP window (aortopulmonary window) Anxiety Depression DVT (deep venous thrombosis) Hypokalemia Noncompliance with diabetes treatment History of medication noncompliance Severe protein-calorie malnutrition Kidney disease Hypokalemia Non-smoker Asthma Psychosocial problem femur surgery Diabetes mellitus type 1 GERD (gastroesophageal reflux disease) Home Medications ?Medication ?Instructions ?Recorded ?Last Taken ?Type blood sugar diagnostic (OneTouch 02/27/23 Unknown History Verio test strips) flash glucose sensor (FreeStyle 02/27/23 Unknown History Niru 14 Day Sensor kit) pen needle, diabetic 31 gauge x #100 ea 07/10/24 Unknown Rx 1/3 alcohol swabs (BD Alcohol Swabs) 1 pad topical 4X/DAY prior to 02/01/25 Unknown History injections blood-glucose meter (True Metrix 02/01/25 Unknown History Glucose Meter) insulin glargine 100 unit/mL (3 20 unit (0.2 mL) subcut DAILY 02/01/25 Unknown Rx mL) subcutaneous pen (Lantus diabetes #15 mL Solostar U-100 Insulin) insulin lispro 100 unit/mL 10 unit subcut .with meals 02/01/25 Unknown Rx subcutaneous pen (Humalog KwikPen DIABETES 1 day #15 mL (U-100) Insulin) lispro sliding scale diabetes 02/01/25 Unknown History omeprazole 40 mg capsule,delayed 40 mg PO DAILY gerd 02/13/25 Unknown History release Allergy/AdvReac Type Severity Reaction Status Date / Time vancomycin Allergy local Verified 02/12/25 22:42 rash/hives to IV site Family History Father Polysubstance overdose Patient father young secondary to OD. Mother Iron deficiency anemia Other Asthma CVA (cerebral vascular accident) Diabetes Hypertension Thyroid disorder Surgical History H/O right knee surgery History of surgery on extremity Hx of knee surgery Social History housing: other details: Lives with his grandmother, aunt and mother. Smoking Status: Never smoker alcohol intake: current alcohol intake frequency: a few times a month substance use type: does not use ROS ROS Narrative Admission Review of Systems: CONSTITUTIONAL: No weight loss, fever, chills, + weakness or fatigue. HEENT: + Poor dentition. Eyes: No visual loss, blurred vision, double vision or yellow sclerae. Ears, Nose, Throat: No hearing loss, sneezing, congestion, runny nose or sore throat. SKIN: + History stage II left buttock pressure ulcer/sacral ulcers that have resolved, various abrasions, staged ecchymoses. CARDIOVASCULAR: No chest pain, chest pressure or chest discomfort, palpitations, edema, orthopnea, syncopal events. RESPIRATORY: + Shortness of breath. No cough or sputum, wheezing, hemoptysis. GASTROINTESTINAL: + Anorexia, nausea, vomiting, diarrhea. No abdominal pain, melena, BRBPR. GENITOURINARY: + Increased urinary Frequency. No dysuria, urgency or retention. NEUROLOGICAL: No headache, dizziness, syncope, paralysis, ataxia, numbness or tingling in the extremities, focal weakness, change in bowel or bladder control, seizure. MUSCULOSKELETAL:+ muscle, back pain, joint pain or stiffness. HEMATOLOGIC: + Chronic anemia, easy bleeding/bruising. LYMPHATICS: No enlarged nodes. No history of splenectomy. PSYCHIATRIC: + History of anxiety and depression. ENDOCRINOLOGIC: No reports of sweating, cold or heat intolerance. + Polyuria or polydipsia. ALLERGIES: + Lactose intolerant. Vital Signs Vital Signs Vital Signs: 02/12/25 22:39 02/12/25 22:41 02/12/25 23:00 Temperature 97.2 F L 97.2 F L Temperature Source Temporal Oral Pulse Rate 113 H 113 H Respiratory Rate 20 H 21 H Respiratory Effort Normal Non-Labored Respiratory Pattern Tachypnea Blood Pressure 99/57 L 99/57 L Blood Pressure Mean 71 71 Pulse Ox 100 100 Oxygen Delivery Method Room Air Room Air Room Air 02/12/25 23:59 02/13/25 01:00 Temperature 97.6 F L Temperature Source Temporal Pulse Rate 112 H 112 H Respiratory Rate 22 H 23 H Respiratory Effort Respiratory Pattern Blood Pressure 114/78 99/59 L Blood Pressure Mean 90 72 Pulse Ox 100 100 Oxygen Delivery Method Room Air Room Air Weight Weight: 184 lb 4.903 oz Body Mass Index (BMI) 24.3 Physical Exam Narrative Physical Examination: General: Awake, alert, oriented x 3 and cooperative, seated upright in the ED bed, fatigued and ill appearing. Skin: Normal color, normal turgor, no icterus, no cyanosis, occasional staged ecchymoses, abrasions. HEENT: AT/NC, EOMI, PERRLA, dry MM, poor dentition, no carotid bruits or JVD noted. Lungs: Diminished, greater bases, tachypneic but no evidence of any distress, no rales, ronchi or wheezing. Heart: Tachycardic with regular rhythm; no gallop, rub audible. Abdomen: Soft, NTTP, no marked distention evident, mildly hyperactive BS, no appreciated HSM. Extremities: No cyanosis, clubbing, or edema, see skin. Neurological: Patient awake, alert, oriented as noted, cognitive function intact; pupils equally reactive to light and accommodation, cranial nerves grossly normal, moving all 4 extremities, no focal deficits, strength moderately to severely globally decreased secondary to acute presentation complaints. Psychiatric: Affect appears fatigued, ill-appearing, no acute evidence of depressive or anxiety feelings but does have underlying history. Results Lab / Micro Data 02/12/25 23:57 02/12/25 23:57 Labs: Laboratory Results - last 24 hr 02/12/25 23:57: WBC 12.0 H, RBC 4.98, Hgb 11.3 L, Hct 37.7 L, MCV 75.7 L, MCH 22.7 L, MCHC 30.0 L, RDW Std Deviation 42.5, RDW Coeff of Rabia 15.9 H, Plt Count 439, MPV 9.7, Immature Gran % (Auto) 1.300 H, Neut % (Auto) 78.0 H, Lymph % (Auto) 14.5 L, [place] % (Auto) 4.9, Eos % (Auto) 0.3, Baso % (Auto) 1.0, Absolute Neuts (auto) 9.4 H, Absolute Lymphs (auto) 1.75, Nucleated RBC % 0, Serum Osmolality 333 H, Lactic Acid Cancelled 02/13/25 01:08: POC Glucose > 500 H* ABG Data ABG results: ABG 02/13/25 00:13 Specimen Type MARILYNN Sample Site Not entered VBG pH 6.93 L* VBG pO2 45 H VBG Total CO2 < 5 L VBG O2 Sat (Calc) 54 VBG Base Excess -28 L POC Mix VBG pCO2 Pt Tmp 19.1 L O2 Delivery Device Room Air Crit Call To/Read Back Yes Blood Gas Notified Whom Andes Blood Gas Notified Time 00:15:08 Imaging Radiology Impression Chest X-Ray 02/12/25 00:35 IMPRESSION: Lower lung volume study. No evidence of acute disease. Reading Location: [facility] Assessment & Plan Assessment/Plan (1) DKA (diabetic ketoacidoses): PLAN: Plan The patient is a 24 y/o M w/ PMHx: Hx VTE (DVT, PE on xarelto per prior records, clarifying), Uncontrolled Diabetes mellitus type I with frequent DKA presentations non-complaint with his insulin and diet, Chronic severe protein calorie malnutrition, Hx 2021 pericarditis/pericardial infection (Treated at [facility], MSSA infection treated with abx therapy), History Stage II L buttock pressure, Hx dysphagia secondary to severe LA grade D erosive esophagitis with candidiasis, Chronic anemia/Fe deficiency anemia, Anxiety and Depression, GERD who presents to the [facility] ED on 02/12/2025 with worsening dyspnea as well as nausea, emesis and loose stools throughout the day not improving prompting eventual ED evaluation. #1. DKA w/ Diabetes mellitus type I: Patient administered 2 L normal saline in the ED and started on an insulin drip. Will admit to the ICU per protocol, consult waste removalist per protocol, continue on insulin drip, check serial K+, glucose w/ IVF changes pending these levels, serial chemistry, obtain mag, phos daily w/ repletion as needed, transition to home SC regimen when gap closed w/ overlap on drip, nutrition consultation. Encouraged diet and insulin regimen compliance. #2. Nausea, emesis, diarrhea, questionable gastritis versus typical presentation with #1: Patient notes only 3 liquid stools, certainly all could be related with #1 however to be cautious given serial presentations to the hospital admissions will obtain enteric and C. difficile, continue aggressive hydration, if no obvious infectious source with ongoing diarrhea low threshold to initiate loperamide at that time if appropriate. Will have antiemetics as needed. #3. Electrolyte disturbances w/ hyponatremia, hypochloremia, hypokalemia as noted #4, metabolic acidosis with #1: Will continue treatment as noted #1, patient administered bicarb amp x 2 in the ED, will add additional as needed, plan repeat ABG, ICU physician consulted as noted, continue to trend electrolytes. #4. Hyperkalemia, mild: Admission potassium 5.8, not noted to be hemolyzed, given planned usage of insulin drip we will continue to monitor with serial BMPs, continued aggressive hydration. #5. Acute renal insufficiency/elevated creatinine on chronic kidney disease stage III per previous GFR trending although has vacillated: Secondary to #1, #2, admission BUN/Cr 19/1.45, prior baseline creatinine noted to be more recently primarily 0.9-1.2. Will continue to aggressively hydrate as noted above per DKA protocol, hold nephrotoxic medications and repeat BMP serially as noted. #6. GERD: Maintained on IV PPI cautiously especially given C. difficile history, pending C. difficile and enteric pathogens as noted. #7. Chronic microcytic anemia: Admission hemoglobin 11.3, MCV 75.7, baseline hemoglobin has vacillated but primarily 8-10 range, will continue to trend, encourage continued outpatient evaluation and workup. #8. History of dysphagia secondary to severe LA grade D erosive esophagitis with candidiasis: Noted prior history, has previously been treated with oral antifungal regimen, encouraged continued outpatient follow-up with speech as previously ranged, will maintain on IV PPI as noted. #9. History of VTE: Patient with history DVT, PE, previously been on Xarelto, currently not listed, possibly completed but clarifying. #10. Lactose intolerant: We will temporarily hold patient home chronic lactase regimen until oral diet started, resume once appropriate. #11. Anxiety and depression: Patient previously had been on mirtazapine, currently not listed on medications, clarifying will add back if appropriate. #12. Severe chronic protein and calorie malnutrition: Patient with significant underlying comorbidities as well as diabetic disease with noncompliance, evidence of muscle wasting evident, nutrition will be consulted for education, teaching as well as recommendations to maximize patient malnutrition treatment. #13. History of chronic pressure ulcers: Patient with previous significant sacral and buttock pressure ulcers, encourage frequent offloading, routine self-examination. #13. DVT prophylaxis: Heparin unless clarification obtained on his anticoagulation and it is ongoing, had been on NOAC prior. #14. CODE status: Patient does not have a healthcare power of commercial real estate attorney or living will in place but his mother and grandmother who are present would be his decision makers the note. Discussed CODE status at length including difference between FULL code, DNR-CCA and DNR-CC status. Following discussions about the differences in these status, requested continued Full Code status. Charges/Coding Visit Charges Inpatient E&M: 49187 Init Hosp L3
[2025-02-13 01:41] LABS: Lipase 32 U/L (13-75)
[2025-02-13 01:55] LABS: BETA-HYDROXYBUTYRATE 13.2 mmol/L (0.0-0.3)
[2025-02-13 01:59] LABS: AST(SGOT) 20 U/L (<=37); Alanine Aminotransfer ALT/SGPT 23 U/L (<=46); Albumin, Serum 4.5 g/dL (3.5-5.0); Alkaline Phosphatase 152 U/L (40-129); Anion Gap 36 (5-15); BUN 19 mg/dL (4-19); BUN/Creat Ratio 13.4 RATIO (10-20); Bilirubin, Direct 0.27 mg/dL (0.00-0.30); Calcium,Total 9.6 mg/dL (7.6-11.0); Carbon Dioxide 3.1 mmol/L (21.0-32.0); Chloride 88 mmol/L (98-108); Creatinine, Serum 1.45 mg/dL (0.70-1.20); EST Glomerular Filtration Rate 69 (>60); Estimated Creatinine Clearance 88.78 ml/min (50-250); Globulin 3.5 g/dL (2.2-4.2); Glucose 743 mg/dL (70-99); Potassium 5.8 mmol/L (3.3-5.1); Sodium Level 127 mmol/L (133-145); Total Bilirubin 0.62 mg/dL (0.00-1.30)
[2025-02-13] MEDS: 0.9% Normal Saline (1000mL) 1,000 ML 999 ML IV (02:05)
[2025-02-13] MEDS: Sodium Bicarbonate 8.4% 50 ML Syringe 100 MEQ IV ×2 (02:10→03:41)
[2025-02-13] MEDS: Insulin Lispro 100 UNIT in 0.9% Normal Saline (100mL Bag) 99 ML 8.4 UNIT CONT INF ×2 (02:18→03:32)
[2025-02-13] MEDS: 0.9% Normal Saline (100mL Bag) 100 ML 15 ML IV (03:17)
[2025-02-13] MEDS: Pantoprazole Sodium 40 MG in 0.9% Normal Saline (100mL MB+) 100 ML 330 MG IV ×3 (03:17→20:49)
[2025-02-13] MEDS: proCHLORPERazine 10 MG/2 ML Vial 5 MG IV (03:17)
[2025-02-13 03:19] LABS: Absolute Lymphocyte Count 1.76 X10^3/uL (0.83-4.51); Absolute Neutrophil Count 13.5 X10^3/uL (2.0-7.7); Basophil% 0.6 % (0-1); Eosinophil# 0.02 X10^3/uL; Eosinophils% 0.1 % (0-5); Hematocrit 33.3 % (40-54); Lymphocyte # 1.76 X10^3/ul (0.83-4.51); Lymphocyte % 10.9 % (19-41); Mean Corpuscular Hgb 22.5 pg (27.0-32.0); Mean Platelet Vol. 9.3 fl (6.2-12.0); Monocyte# 0.65 X10^3/uL; NRBC Flagged by Analyzer 0 % (0-5); Neutrophil # 13.45 X10^3/uL (2.7-7.7); Neutrophil % 83.5 % (47-70); Platelet Count 395 K/mm3 (150-450); RBC Distribution Width CV 15.6 % (11.6-14.6); RBC Distribution Width SD 41.6 fl (35.1-43.9); Red Blood Count 4.44 M/mm3 (4.6-6.2); White Blood Count 16.1 K/mm3 (4.4-11.0)
[2025-02-13 03:20] LABS: Base Excess -28 mmol/L (-2 to +2); Bicarbonate 2.8 mmol/L (22-26); Blood Gas Specimen Type ART; Mode Not entered; O2 Delivery Device Room Air; PO2 120 mmHG (75-100); SITE R Radial; SO2 96 % (95-99); Total Carbon Dioxide < 5 mmol/L; pCO2 11.1 mmHg (35-45); pH 7.01 (7.35-7.45)
--- NOTE | 2025-02-13 03:34 | PCM.HOSP.N ---
Hospitalist Note Repeat ABG performed, will give additional bicarb.
[2025-02-13 03:42] LABS: Bedside Glucose > 500 mg/dL (74-106)
[2025-02-13] MEDS: 0.9% Saline Lock 10 ML Syringe IV (03:47)
[2025-02-13] MEDS: 0.9% Normal Saline (1000mL) 1,000 ML 150 ML IV (03:50)
--- NOTE | 2025-02-13 04:18 | NURSING ---
Awaiting 0307 Glucose to result to change insulin gtt rate. 0400 fingerstick result: 520.
[2025-02-13 04:20] LABS: Bedside Glucose > 500 mg/dL (74-106)
[2025-02-13 04:55] LABS: AST(SGOT) 16 U/L (<=37); Alanine Aminotransfer ALT/SGPT 19 U/L (<=46); Albumin, Serum 3.7 g/dL (3.5-5.0); Alkaline Phosphatase 126 U/L (40-129); Anion Gap UNABLE TO CALCULATE (5-15); BUN 23 mg/dL (4-19); Bilirubin, Direct 0.16 mg/dL (0.00-0.30); Calcium,Total 8.5 mg/dL (7.6-11.0); Carbon Dioxide < 2.0 mmol/L (21.0-32.0); Chloride 94 mmol/L (98-108); Creatinine, Serum 1.29 mg/dL (0.70-1.20); EST Glomerular Filtration Rate 79 (>60); Estimated Creatinine Clearance 99.16 ml/min (50-250); Globulin 2.7 g/dL (2.2-4.2); Glucose 717 mg/dL (70-99); Potassium 5.7 mmol/L (3.3-5.1); Protein, Total 6.5 g/dL (5.9-8.4); Sodium Level 133 mmol/L (133-145); Total Bilirubin 0.33 mg/dL (0.00-1.30)
--- NOTE | 2025-02-13 04:57 | CON.PCM.CC_ITS ---
HPI Consult Data Date of Consult: 02/13/25 HPI Narrative HPI Narrative: SHIRA STEPHENSON, is a 24yo M w/ poorly-controlled DM with recurrent DKA, h/o VTE on Xarelto, erosive esophagitis with previous candidiasis, h/o MSSA pericardial infection tx 2021, dysphagia, buttock ulcer, chronic anemia, anxiety/depression, medication noncompliance, lactose intolerance, severe protein calorie malnutrition who was admitted for recurrent DKA. He was recently admitted here and discharged on 02/01 for DKA as well. This time he developed N/V, diarrhea for the past day or so and came to ED. Reports missing some doses of insulin recently. Symptoms feel similar to his prior episodes of DKA. He was noted to be severely acidotic/hyperglycemic, started on IV insulin gtt and IVF. Given bicarb as well. He is still somewhat uncomfortable but overall feels better compared to admit. Denies recent infections, fevers/chills, CP, dyspnea, dysuria, or other prominent sx. Denies smoking, EtOH use. ROS: 12-point ROS negative except as per HPI PFSH Medical History Medical non-compliance Diabetic ketoacidosis History of venous thromboembolism C. difficile enteritis Chronic anticoagulation History of diabetes mellitus Anticoagulant long-term use Anemia due to chronic illness [place] grade D esophagitis Minerva esophagitis Gastroparesis Recurrent pulmonary embolism AP window (aortopulmonary window) Anxiety Depression DVT (deep venous thrombosis) Hypokalemia Noncompliance with diabetes treatment History of medication noncompliance Severe protein-calorie malnutrition Kidney disease Hypokalemia Non-smoker Asthma Psychosocial problem femur surgery Diabetes mellitus type 1 GERD (gastroesophageal reflux disease) Home Medications ?Medication ?Instructions ?Recorded ?Last Taken ?Type blood sugar diagnostic (OneTouch 02/27/23 Unknown His tory Verio test strips) flash glucose sensor (FreeStyle 02/27/23 Unknown Hist ory Niru 14 Day Sensor kit) pen needle, diabetic 31 gauge x #100 ea 07/10/24 Unkno wn Rx 1/3 alcohol swabs (BD Alcohol Swabs) 1 pad topical 4X/DAY prior to 02/01/25 Unknown History injections blood-glucose meter (True Metrix 02/01/25 Unknown His tory Glucose Meter) insulin glargine 100 unit/mL (3 20 unit (0.2 mL) subcu t DAILY 02/01/25 Unknown Rx mL) subcutaneous pen (Lantus diabetes #15 mL Solostar U-100 Insulin) insulin lispro 100 unit/mL 10 unit subcut .with meals 02/01/25 Unknown Rx subcutaneous pen (Humalog KwikPen DIABETES 1 day #15 m L (U-100) Insulin) lispro sliding scale diabetes 02/01/25 Unknown Hi story omeprazole 40 mg capsule,delayed 40 mg PO DAILY gerd 0 02/13/25 Unknown History release Allergy/AdvReac Type Severity Reaction Status Date / Time vancomycin Allergy local Verified 02/12/25 22:42 rash/hives to IV site Family History Father Polysubstance overdose Patient father young secondary to OD. Mother Iron deficiency anemia Other Asthma CVA (cerebral vascular accident) Diabetes Hypertension Thyroid disorder Surgical History H/O right knee surgery History of surgery on extremity Hx of knee surgery Social History housing: other details: Lives with his grandmother, aunt and mother. Smoking Status: Never smoker alcohol intake: current alcohol intake frequency: a few times a month substance use type: does not use Objective Data Objective Data Vital Signs: Vital Signs Last response 3 Temperature 35.1 C L 02/13/25 04:00 Temperature Source Core 02/13/25 04:00 Pulse Rate 116 H 02/13/25 04:00 Respiratory Rate 27 H 02/13/25 04:00 Respiratory Effort Normal, Non-Labored 02/12/25 23:00 Respiratory Pattern Tachypnea 02/12/25 23:00 Blood Pressure 84/58 L 02/13/25 04:00 Blood Pressure Mean 66 02/13/25 04:00 Blood Pressure Source Monitor 02/13/25 04:00 Blood Pressure Position Semi-Fowlers 02/13/25 04:00 Blood Pressure Location Right Arm 02/13/25 04:00 Pulse Ox 99 02/13/25 04:00 Oxygen Delivery Method Room Air 02/13/25 04:00 I&O: I&O Last 24 Hours 3 0402/12/25 02/13/25 11:59 23:59 11:59 Intake Total Balance I&O: Total Stay 3 02/12/25 22:39 thru 02/13/25 03:37 Intake Total 2119. Balance Current Meds Ordered / Administered: Current meds ordered / Administered 3 Generic Name Dose Route Start Last Admin Trade Name Freq PRN Reason Stop Dose Admin Acetaminophen 650 mg 02/13/25 02:43 Acetaminophen 325 Mg Tablet PO Q4H PRN PRN Fever, pain 1-08/21 Al Hydroxide/Mg Hydroxide 30 ml 02/13/25 02:43 Mag Hydrox/Al Hydrox/Simeth 30 Ml Udc PO Q6H PRN PRN Gastric Burning Albuterol Sulfate 2.5 mg 02/13/25 02:43 Albuterol 2.5 Mg/3 Ml Vial.Neb. INHALATION Q2H PRN PRN Dyspnea, wheezing Guaifenesin 10 ml 02/13/25 02:43 Guaifenesin 10 Ml Udc (200mg/10ml) PO Q4H PRN PRN COUGH Heparin Sodium (Porcine) 5,000 unit 02/13/25 10:00 Heparin Injection (Vial) 5,000 Unit/Ml Vial SC Q12 LILLY Hydralazine HCl 10 mg 02/13/25 02:43 Hydralazine 20 Mg/Ml Vial IV Q4H PRN PRN SBP > 160 Protocol Dextrose 250 mls @ 999 mls/hr 02/13/25 02:43 Dextrose 10%-Water IV .Q16M PRN Hypoglycemic Protocol Protocol Sodium Chloride 1,000 mls @ 150 mls/hr 02/13/25 02:43 02/13/25 03:50 IV 02/13/25 09:22 150 mls/hr .Q6H40M LILLY Administration Insulin Human Lispro 100 unit/ 100 mls @ 8.36 mls/hr 02/13/25 02:43 02/13/25 03:32 Sodium Chloride CONT INF 8.4 mls/hr .[id number] LILLY Administration Protocol Pantoprazole Sodium 40 mg/ 110 mls @ 330 mls/hr 02/13/25 02:43 02/13/25 03:37 Sodium Chloride IV Infused Q12 LILLY Infusion Sodium Chloride 100 mls @ 15 mls/hr 02/13/25 02:56 02/13/25 03:17 IV 15 mls/hr .Q6H40M PRN Administration Saline Flush Sodium Chloride 100 mls @ 15 mls/hr 02/13/25 02:56 IV .Q6H40M PRN Additional IVPB Infusion Melatonin 3 mg 02/13/25 02:43 Melatonin 3 Mg Tablet PO QHS PRN PRN INSOMNIA Ondansetron HCl 4 mg 02/13/25 02:43 Ondansetron 4 Mg/2 Ml Vial IV Q8H PRN PRN NAUSEA/VOMITING Prochlorperazine Edisylate 5 mg 02/13/25 02:43 02/13/25 03:17 Prochlorperazine 10 Mg/2 Ml Vial IV 5 mg Q4H PRN PRN Administration Breakthrough Nausea/Vomiting Sodium Chloride 10 - 40 ml 02/13/25 02:56 02/13/25 03:47 0.9% Saline Lock 10 Ml Syringe IV 20 ml UD PRN Administration SALINE FLUSH Lab / Micro Data 02/13/25 03:07 02/13/25 03:07 Labs: Laboratory Results - last 24 hr 02/12/25 23:57: WBC 12.0 H, RBC 4.98, Hgb 11.3 L, Hct 37.7 L, MCV 75.7 L, MCH 22.7 L, MCHC 30.0 L, RDW Std Deviation 42.5, RDW Coeff of Rabia 15.9 H, Plt Count 439, MPV 9.7, Immature Gran % (Auto) 1.300 H, Neut % (Auto) 78.0 H, Lymph % (Auto) 14.5 L, [place] % (Auto) 4.9, Eos % (Auto) 0.3, Baso % (Auto) 1.0, Absolute Neuts (auto) 9.4 H, Absolute Lymphs (auto) 1.75, Nucleated RBC % 0, Sodium 127 L , Potassium 5.8 H, Chloride 88 L, Carbon Dioxide 3.1 L*, Anion Gap 36 H, BUN 19, Creatinine 1.45 H, Estim Creat Clear Calc 88.78, Est GFR (MDRD) Non-Af 69, BUN/Creatinine Ratio 13.4, Glucose 743 H*, Serum Osmolality 333 H, Lactic Acid Cancelled, Calcium 9.6, Total Bilirubin 0.62, Direct Bilirubin 0.27, AST 20, ALT 23, Alkaline Phosphatase 152 H, Total Protein 8.0, Albumin 4.5, Globulin 3.5, Lipase 32, b-Hydroxybutyric mmol/L 13.2 02/13/25 01:08: POC Glucose > 500 H* 02/13/25 01:16: Lactic Acid 1.0 02/13/25 03:07: WBC 16.1 H, RBC 4.44 L, Hgb 10.0 L, Hct 33.3 L, MCV 75.0 L, MCH 22.5 L, MCHC 30.0 L, RDW Std Deviation 41.6, RDW Coeff of Rabia 15.6 H, Plt Count 395, MPV 9.3, Immature Gran % (Auto) 0.900, Neut % (Auto) 83.5 H, Lymph % (Auto) 10.9 L, [place]ke % (Auto) 4.0, Eos % (Auto) 0.1, Baso % (Auto) 0.6, Absolute Neuts (auto) 13.5 H, Absolute Lymphs (auto) 1.76, Nucleated RBC % 0, Sodium 133, P otassium 5.7 H, Chloride 94 L, Carbon Dioxide < 2.0 L*, Anion Gap UNABLE TO CALCULATE L, BUN 23 H, Creatinine 1.29 H, Estim Creat Clear Calc 99.16, Est GFR (MDRD) Non-Af 79, BUN/Creatinine Ratio 18.0, Glucose 717 H*, Calcium 8.5, Total Bilirubin 0.33, Direct Bilirubin 0.16, AST 16, ALT 19, Alkaline Phosphatase 126, Total Protein 6.5, Albumin 3.7, Globulin 2.7 02/13/25 03:08: POC Glucose > 500 H* 02/13/25 04:01: POC Glucose > 500 H* Micro: Microbiology 02/13/25 02:57 Nasal Secretion MRSA (PCR) - Final ABG Data ABG results: ABG 02/13/25 02/13/25 00:13 03:14 Specimen Type MARILYNN ART Sample Site Not entered R Radial pH 7.01 L* Bicarbonate Actual 2.8 L Total CO2 < 5 Base Excess -28 L O2 Saturation 96 ABG pCO2 11.1 L* ABG pO2 120 H Hector Test N/A VBG pH 6.93 L* VBG pO2 45 H VBG Total CO2 < 5 L VBG O2 Sat (Calc) 54 VBG Base Excess -28 L POC Mix VBG pCO2 Pt Tmp 19.1 L O2 Delivery Device Room Air Room Air Vent Mode Not entered Crit Call To/Read Back Yes Yes Blood Gas Notified Whom Delia Kapoor Blood Gas Notified Time 00:15:08 03:16:39 Imaging Radiology Impression Chest X-Ray 02/12/25 00:35 IMPRESSION: Lower lung volume study. No evidence of acute disease. Reading Location: [facility] Assessment and Plan . Assessment and plan: Physical Exam: Gen - NAD, ill-appearing HEENT - MM dry. Sclera anicteric Resp - CTAB. Breathing nonlabored CV - Tachycardic, regular rhythm. No m/g/r Abd - Soft, NT, ND Ext - No c/c/e. Skin - +buttock pressure ulcer? Neuro - Grossly nonfocal. Alert and oriented I have reviewed the pertinent vital sign, laboratory, and imaging data. ASSESSMENT: # DKA - h/o poorly-controlled DM with recurrent DKA. Noncompliant with insulin, missed doses at home # Vomiting/diarrhea # RADHA # h/o VTE on Xarelto # Erosive esophagitis with previous candidiasis # h/o MSSA pericardial infection tx 2021 # Dysphagia # Buttock ulcer # Chronic anemia # Anxiety/depression # Lactose intolerance # Severe protein calorie malnutrition PLAN: -Cont insulin gtt per DKA protocol -Cont IVF, switch to LR for now. s/p bicarb pushes as well -Monitor Q4h electrolytes -Monitor Cr, UOP. Improving -Stool Cx, C diff pending. Procal 0.06 -Wound care -PPI for GERD/esophagitis -Nutrition consult once taking PO again -Need to encourage compliance with medications FEN/GI: NPO Proph DVT/GI: SQ heparin, protonix Critical Care Time: 60 mins The entirety of this encounter was done via telemedicine using both audio and video. Consent was obtained.
[2025-02-13 05:09] LABS: Phosphorus 5.8 mg/dL (2.7-4.5); Procalcitonin 0.06 ng/mL (<=0.10)
[2025-02-13 05:19] LABS: Bedside Glucose 416 mg/dL (74-106)
[2025-02-13] MEDS: Lactated Ringers 1,000 ML 999 ML IV (05:40)
[2025-02-13 06:15] LABS: VBG Bicarbonate 4 mmol/L (22-26)
[2025-02-13 06:25] LABS: Bedside Glucose 281 mg/dL (74-106)
[2025-02-13] MEDS: Lactated Ringers 1,000 ML 150 ML IV (06:44)
[2025-02-13 07:14] LABS: Bedside Glucose 278 mg/dL (74-106)
[2025-02-13 08:20] LABS: Bedside Glucose 258 mg/dL (74-106)
--- NOTE | 2025-02-13 08:35 | PCM.PN.HOSP ---
Reason for Visit Reason for Visit: Diagnoses Type 2 diabetes mellitus with ketoacidosis without coma (02/13/25) Subjective Subjective Patient is a 24-year-old gentleman with history of diabetes mellitus type 1 with multiple hospitalizations who presented with shortness of breath nausea,vomiting and diarrhea. An assessment of diabetic ketoacidosis was made admitted to the intensive care unit for further management Objective Data Objective Data Vital Signs: Vital Signs Temp Pulse Resp BP Pulse Ox O2 Del Method 98.1 F 115 H 18 104/57 L 98 Room Air 02/13/25 08:00 02/13/25 08:00 02/13/25 08:00 02/13/25 08:00 02/13/25 08:00 02/13/25 08:00 Oxygen Delivery Method Room Air Weight: 79.4 kg Body Mass Index (BMI) 23.1 Intake & Output: Intake and Output for Last 24 Hours 02/11/25 02/12/25 02/13/25 23:59 23:59 23:59 Intake Total 3378.99 / 3378.99 Output Total 2750 / 2750 Balance 628.99 / 628.99 Lab / Micro Data 02/13/25 03:07 02/13/25 06:35 Labs: Laboratory Results - last 24 hr 02/12/25 23:57: WBC 12.0 H, RBC 4.98, Hgb 11.3 L, Hct 37.7 L, MCV 75.7 L, MCH 22.7 L, MCHC 30.0 L, RDW Std Deviation 42.5, RDW Coeff of Rabia 15.9 H, Plt Count 439, MPV 9.7, Immature Gran % (Auto) 1.300 H, Neut % (Auto) 78.0 H, Lymph % (Auto) 14.5 L, [place] % (Auto) 4.9, Eos % (Auto) 0.3, Baso % (Auto) 1.0, Absolute Neuts (auto) 9.4 H, Absolute Lymphs (auto) 1.75, Nucleated RBC % 0, Sodium 127 L, Potassium 5.8 H, Chloride 88 L, Carbon Dioxide 3.1 L*, Anion Gap 36 H, BUN 19, Creatinine 1.45 H, Estim Creat Clear Calc 88.78, Est GFR (MDRD) Non-Af 69, BUN/Creatinine Ratio 13.4, Glucose 743 H*, Serum Osmolality 333 H, Lactic Acid Cancelled, Calcium 9.6, Total Bilirubin 0.62, Direct Bilirubin 0.27, AST 20, ALT 23, Alkaline Phosphatase 152 H, Total Protein 8.0, Albumin 4.5, Globulin 3.5, Lipase 32, b-Hydroxybutyric mmol/L 13.2 02/13/25 01:08: POC Glucose > 500 H* 02/13/25 01:16: Lactic Acid 1.0 02/13/25 03:07: WBC 16.1 H, RBC 4.44 L, Hgb 10.0 L, Hct 33.3 L, MCV 75.0 L, MCH 22.5 L, MCHC 30.0 L, RDW Std Deviation 41.6, RDW Coeff of Rabia 15.6 H, Plt Count 395, MPV 9.3, Immature Gran % (Auto) 0.900, Neut % (Auto) 83.5 H, Lymph % (Auto) 10.9 L, [place] % (Auto) 4.0, Eos % (Auto) 0.1, Baso % (Auto) 0.6, Absolute Neuts (auto) 13.5 H, Absolute Lymphs (auto) 1.76, Nucleated RBC % 0, Sodium 133, Potassium 5.7 H, Chloride 94 L, Carbon Dioxide < 2.0 L*, Anion Gap UNABLE TO CALCULATE L, BUN 23 H, Creatinine 1.29 H, Estim Creat Clear Calc 99.16, Est GFR (MDRD) Non-Af 79, BUN/Creatinine Ratio 18.0, Glucose 717 H*, Calcium 8.5, Phosphorus 5.8 H, Magnesium 2.0, Total Bilirubin 0.33, Direct Bilirubin 0.16, AST 16, ALT 19, Alkaline Phosphatase 126, Total Protein 6.5, Albumin 3.7, Globulin 2.7, Procalcitonin 0.06 02/13/25 03:08: POC Glucose > 500 H* 02/13/25 04:01: POC Glucose > 500 H* 02/13/25 05:00: POC Glucose 416 H 02/13/25 06:07: POC Glucose 281 H 02/13/25 06:55: POC Glucose 278 H 02/13/25 07:59: POC Glucose 258 H Micro: Microbiology 02/13/25 02:57 Stool Enteric Bacteriology - Final 02/13/25 02:57 Stool Clostridioides difficile (PCR) - Final 02/13/25 02:57 Nasal Secretion MRSA (PCR) - Final ABG Data ABG results: ABG 02/13/25 02/13/25 00:13 03:14 Specimen Type MARILYNN ART Sample Site Not entered R Radial pH 7.01 L* Bicarbonate Actual 2.8 L Total CO2 < 5 Base Excess -28 L O2 Saturation 96 ABG pCO2 11.1 L* ABG pO2 120 H Hector Test N/A VBG pH 6.93 L* VBG pO2 45 H VBG HCO3 4 L VBG Total CO2 < 5 L VBG O2 Sat (Calc) 54 VBG Base Excess -28 L POC Mix VBG pCO2 Pt Tmp 19.1 L O2 Delivery Device Room Air Room Air Vent Mode Not entered Crit Call To/Read Back Yes Yes Blood Gas Notified Whom Delia Cam White Blood Gas Notified Time 00:15:08 03:16:39 Radiography Diagnostic Testing: Radiology Impression Chest X-Ray 02/12/25 00:35 IMPRESSION: Lower lung volume study. No evidence of acute disease. Reading Location: [facility] Physical Exam Narrative GENERAL: Lethargic and appears ill looking HEENT: Atraumatic; normocephalic EYES; Anicteric, Normal Conjunctiva NECK; supple, normal thyroid, RESPIRATORY: Diminished to auscultation CARDIOVASCULAR: Regular S1 S2, GI: soft, normoactive bowel sounds, : No Renal angle tenderness; EXTREMITIES: No edema, no clubbing, MUSCULOSKELETAL: no muscle wasting NEURO: Awake; no lateralizing signs. SKIN: No Rash PSYCH; Flat affect Assessment & Plan Assessment/Plan (1) DKA (diabetic ketoacidoses): PLAN: Plan Patient is a 24-year-old gentleman with history of diabetes mellitus type 1 with multiple hospitalizations who presented with shortness of breath nausea,vomiting and diarrhea. An assessment of diabetic ketoacidosis was made admitted to the intensive care unit for further management 1. Diabetes mellitus type 1 presented with DKA ? Patient admitted to the intensive care unit management IV fluid resuscitation, every 4 BMPs, correction of electrolytes 2. Severe metabolic acidosis ? Secondary to patient DKA patient started on bicarb drip 3. RADHA ? Secondary to severe dehydration from DKA patient being managed with IV fluid with subsequent monitoring of electrolyte 4. Acute gastroenteritis ? Patient placed on the enteric precautions while stool for C. difficile is being ruled treated symptomatically patient 5. Hyperkalemia ? Pseudohyperkalemia secondary to hyperglycemia I do expect rapid improvement with treatment of patient hyperglycemia 6. Anemia ? Secondary to chronic disorder monitoring H&H and transfuse if patient becomes symptomatic or hemoglobin falls below 7 7. History of recurrent PEs ? Patient patient was previously on Xarelto not on his home medications plan is to reconcile 8. GERD ? On PPI 7. DVT prophylaxis ? Patient started on heparin pending medication reconciliation Time critical spent in the patient's overall evaluation,decision-making process, review of diagnostic data, adjustment of management, discussion with other providers, nursing nursing and ancillary staff involved in patient's care documentation, 52 Minutes Charges/Coding Procedures Hospitalists Procedures: 51774 Critical Care 1st Hr
[2025-02-13 08:37] LABS: Anion Gap 31 (5-15); BUN 21 mg/dL (4-19); BUN/Creat Ratio 16.6 RATIO (10-20); Calcium,Total 8.4 mg/dL (7.6-11.0); Chloride 105 mmol/L (98-108); Creatinine, Serum 1.26 mg/dL (0.70-1.20); EST Glomerular Filtration Rate 82 (>60); Estimated Creatinine Clearance 101.53 ml/min (50-250); Glucose 308 mg/dL (70-99); Potassium 4.5 mmol/L (3.3-5.1); Sodium Level 142 mmol/L (133-145)
[2025-02-13] MEDS: Heparin Injection (Vial) 5,000 UNIT/ML VIAL 5000 UNIT SC ×2 (08:44→20:49)
[2025-02-13 09:00] LABS: Carbon Dioxide 5.7 mmol/L (21.0-32.0)
[2025-02-13] MEDS: Sodium Bicarbonate 50 MEQ in Dextrose 5%-Water (1000mL Bag) 1,000 ML 100 MEQ IV ×2 (10:56→22:09)
[2025-02-13 11:15] LABS: BUN 18 mg/dL (4-19); BUN/Creat Ratio 15.3 RATIO (10-20); Calcium,Total 8.3 mg/dL (7.6-11.0); Chloride 109 mmol/L (98-108); Creatinine, Serum 1.16 mg/dL (0.70-1.20); EST Glomerular Filtration Rate 90 (>60); Estimated Creatinine Clearance 110.28 ml/min (50-250); Glucose 233 mg/dL (70-99); Potassium 4.3 mmol/L (3.3-5.1); Sodium Level 142 mmol/L (133-145)
--- NOTE | 2025-02-13 11:40 | CASEMGMT ---
VERONA FONTANEZ chart review: Patient was admitted 01/30-02/01/25 for severe DKA. See assessment from 01/31/25. Patient was discharged to home with family support and follow-up plans in place. Patient returned to [facility] ED on 02/13/25 for SOB and n/v/d. Patient had blood glucose of 743 and was admitted for DKA. VERONA FONTANEZ in to discuss needs at discharge and readmission. Patient states he became very SOB and came to the hospital. VERONA FONTANEZ asked if patient has been testing his blood sugars at home and taking his insulin. Patient states he checks it 3 times daily and takes his insulin. Patient states he has insulin with supplies and his glucometer with all supplies. VERONA FONTANEZ inquired what patient's blood sugars have been at home, patient states they are running in the 200s. RN HUSEYIN updated patient that his blood sugar was 743 in the ED, patient states again that the previous day it was in the 200s. VERONA FONTANEZ asked what could be done to prevent patient from being hospitalized in the future, patient had no response. Patient became withdrawn from conversation. Patient states he want to discharge home and declined needs at discharge. Patient had no further questions or concerns. CM will continue to follow this patient and plan for a safe discharge.
[2025-02-13 11:48] LABS: Anion Gap 28 (5-15); Carbon Dioxide 5.6 mmol/L (21.0-32.0)
--- NOTE | 2025-02-13 14:23 | CASEMGMT ---
Social Work SW met with pt to discuss frequent hospital readmissions. Pt sitting up in chair and willing to speak with SW. Pt does maintain eye contact throughout conversation. Affect is flat and pt gives no expression, positively or negatively, throughout the conversation. SW and pt discussed at length the nature of the chronic illness of Diabetes. Pt remains in the precontemplative stage of change regarding his health and lifestyle. When asked about his health condition and it's impact on his daily life pt states that it doesn't impact my life and that the his health condition is not that bad. Pt rates the severity of his chronic illness as a 4 on a 10 point scale again stating it's not that bad. Pt states he has all needed supplies and is able to teach back to SW when he needs to check blood sugar and take his insulin. SW did make a list of pt's hospital admissions due to DKA and shared this information with pt. Pt has been hospitalized 35 times since November 12, 2019 for DKA. Pt did express that he was not aware there were this many hospitalizations. 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 Pt remains quiet during this conversation but acknowledges understanding and that he has heard this information before. Pt denies all feelings of depression when asked. SW then completed PHQ9 depression screen with pt score of 8 indicating mild depression. While pt denies feelings of depression and states he has interests, pt is unable to state anything that he enjoys doing. Pt states that he sleeps most of the time and often does not wake until evening and that he is tired all of the time. Pt states he does not get dressed much of the time. Pt also states that he has no appetite and often just does not eat. Pt denies any thoughts of harming himself or that he would be better off . SW did speak with the patient regarding possible correlation between depression and lack of motivation to care for diabetes. SW also spoke with pt about diabetes being negatively effected by sleeping all day and not eating. Pt is able to state, Maybe I am depressed. SW spoke with pt about follow up services with [facility] and pt is unwilling to commit to this. SW notified physician of PHQ9 results. SW inquired about home situation. Pt continues to live with his grandmother, mother, brother and aunt. Pt states that they are neither helpful nor harmful to him, but that pt is in charge of caring for himself. Pt states that his grandmother and mother no longer have a car. SW spoke with pt regarding medical transportation and reminded pt that [employer] does provide transportation to medical appointments. Pt states he is aware of this and has [employer] phone number programed in his phone. At this time, pt denies connection to any further community resources or assistance from SW. SW will remain available for additional support as pt allows. BRENT Frank
[2025-02-13 15:32] LABS: Anion Gap 21 (5-15); BUN 17 mg/dL (4-19); BUN/Creat Ratio 14.2 RATIO (10-20); Calcium,Total 8.3 mg/dL (7.6-11.0); Chloride 110 mmol/L (98-108); Creatinine, Serum 1.18 mg/dL (0.70-1.20); EST Glomerular Filtration Rate 88 (>60); Estimated Creatinine Clearance 108.41 ml/min (50-250); Glucose 211 mg/dL (70-99); Potassium 3.8 mmol/L (3.3-5.1); Sodium Level 141 mmol/L (133-145)
[2025-02-13 15:42] LABS: Bedside Glucose 192 mg/dL (74-106)
[2025-02-13 15:42] LABS: Bedside Glucose 155 mg/dL (74-106)
[2025-02-13 15:42] LABS: Bedside Glucose 246 mg/dL (74-106)
[2025-02-13 15:42] LABS: Bedside Glucose 187 mg/dL (74-106)
[2025-02-13 15:42] LABS: Bedside Glucose 217 mg/dL (74-106)
[2025-02-13 19:04] LABS: Anion Gap 16 (5-15); BUN 16 mg/dL (4-19); BUN/Creat Ratio 14.6 RATIO (10-20); Calcium,Total 8.4 mg/dL (7.6-11.0); Carbon Dioxide 16.8 mmol/L (21.0-32.0); Chloride 108 mmol/L (98-108); Creatinine, Serum 1.12 mg/dL (0.70-1.20); EST Glomerular Filtration Rate 94 (>60); Estimated Creatinine Clearance 114.22 ml/min (50-250); Glucose 202 mg/dL (70-99); Potassium 3.8 mmol/L (3.3-5.1); Sodium Level 140 mmol/L (133-145)
[2025-02-13 19:58] LABS: Bedside Glucose 186 mg/dL (74-106)
[2025-02-13 19:58] LABS: Bedside Glucose 149 mg/dL (74-106)
[2025-02-13 21:13] LABS: Bedside Glucose 107 mg/dL (74-106)
[2025-02-13 22:44] LABS: Bedside Glucose 129 mg/dL (74-106)
[2025-02-13 22:45] LABS: Bedside Glucose 86 mg/dL (74-106)
[2025-02-13 22:58] LABS: Anion Gap 14 (5-15); BUN 15 mg/dL (4-19); BUN/Creat Ratio 14.8 RATIO (10-20); Calcium,Total 8.5 mg/dL (7.6-11.0); Carbon Dioxide 17.6 mmol/L (21.0-32.0); Chloride 112 mmol/L (98-108); Creatinine, Serum 1.03 mg/dL (0.70-1.20); EST Glomerular Filtration Rate 104 (>60); Glucose 79 mg/dL (70-99); Potassium 3.3 mmol/L (3.3-5.1); Sodium Level 143 mmol/L (133-145)
[2025-02-13] MEDS: Dextrose 10%-Water 250 ML 999 ML IV (23:12)
[2025-02-13 23:21] LABS: Bedside Glucose 64 mg/dL (74-106)
[2025-02-13 23:49] LABS: Bedside Glucose 88 mg/dL (74-106)
[2025-02-14] VITALS (14 sets, daily range): BP systolic 82–115; BP diastolic 47–86; PULSE 88–105; RESP 13–21; TEMP 36.2–37.4; O2SAT 97–100; BMI 23.7
[2025-02-14] MEDS: Potassium Chloride 10mEq/100mL 10 MEQ/100 ML IV.SOLN. 100 MEQ IV BOLUS ×4 (00:13→07:48)
[2025-02-14 00:51] LABS: Bedside Glucose 89 mg/dL (74-106)
[2025-02-14 01:40] LABS: Bedside Glucose 89 mg/dL (74-106)
[2025-02-14 02:48] LABS: Bedside Glucose 82 mg/dL (74-106)
[2025-02-14 03:56] LABS: Absolute Lymphocyte Count 1.56 X10^3/uL (0.83-4.51); Absolute Neutrophil Count 4.3 X10^3/uL (2.0-7.7); Basophil# 0.02 X10^3/uL; Basophil% 0.3 % (0-1); Eosinophil# 0.11 X10^3/uL; Eosinophils% 1.7 % (0-5); Hematocrit 28.5 % (40-54); Lymphocyte # 1.56 X10^3/ul (0.83-4.51); Lymphocyte % 24.7 % (19-41); Mean Corp Hgb Conc 31.6 g/dL (32-36); Mean Corpuscular Hgb 22.6 pg (27.0-32.0); Mean Corpuscular Volume 71.6 fL (80-94); Mean Platelet Vol. 9.5 fl (6.2-12.0); Monocyte# 0.36 X10^3/uL; Monocyte% 5.7 % (0-10); NRBC Flagged by Analyzer 0 % (0-5); Neutrophil # 4.25 X10^3/uL (2.7-7.7); Neutrophil % 67.3 % (47-70); POSITIVE COUNT YES; RBC Distribution Width CV 17.2 % (11.6-14.6); RBC Distribution Width SD 43.4 fl (35.1-43.9); Red Blood Count 3.98 M/mm3 (4.6-6.2); White Blood Count 6.3 K/mm3 (4.4-11.0)
[2025-02-14 04:06] LABS: Differential Indicated SCAN CRITERIA MET
[2025-02-14 04:11] LABS: Bedside Glucose 88 mg/dL (74-106)
[2025-02-14 04:42] LABS: Differential Comment SCANNED; Platelet Estimate ADEQUATE (ADEQ)
[2025-02-14] MEDS: 0.9% Saline Lock 10 ML Syringe IV (04:42)
[2025-02-14 04:59] LABS: Bedside Glucose 97 mg/dL (74-106)
[2025-02-14 05:38] LABS: Anion Gap 15 (5-15); BUN 14 mg/dL (4-19); BUN/Creat Ratio 15.2 RATIO (10-20); Calcium,Total 8.2 mg/dL (7.6-11.0); Carbon Dioxide 16.7 mmol/L (21.0-32.0); Chloride 109 mmol/L (98-108); Creatinine, Serum 0.94 mg/dL (0.70-1.20); EST Glomerular Filtration Rate 117 (>60); Estimated Creatinine Clearance 136.94 ml/min (50-250); Glucose 98 mg/dL (70-99); Magnesium 1.5 mg/dL (1.5-2.2); Phosphorus 1.7 mg/dL (2.7-4.5); Potassium 3.2 mmol/L (3.3-5.1); Sodium Level 141 mmol/L (133-145)
[2025-02-14 05:44] LABS: Bedside Glucose 111 mg/dL (74-106)
[2025-02-14] MEDS: 0.9% Normal Saline (100mL Bag) 100 ML 15 ML IV (06:19)
[2025-02-14] MEDS: Magnesium Sulfate 2 GM in Dextrose 5%-Water (100mL Bag) 100 ML IV (06:20)
[2025-02-14 06:44] LABS: Bedside Glucose 104 mg/dL (74-106)
--- NOTE | 2025-02-14 07:06 | PCM.PN.HOSP ---
Reason for Visit Reason for Visit: Diagnoses Type 2 diabetes mellitus with ketoacidosis without coma (02/13/25) Subjective Subjective Patient seen DKA has resolved plan is for patient to be transferred from intensive care unit to [facility] floor. Objective Data Objective Data Vital Signs: Vital Signs Temp Pulse Resp BP Pulse Ox O2 Del Method 98.5 F 91 13 102/64 98 Room Air 02/14/25 07:00 02/14/25 07:00 02/14/25 07:00 02/14/25 07:00 02/14/25 07:00 02/14/25 07:00 Oxygen Delivery Method Room Air Weight: 81.7 kg Body Mass Index (BMI) 23.7 Intake & Output: Intake and Output for Last 24 Hours 02/12/25 02/13/25 02/14/25 23:59 23:59 23:59 Intake Total 5497.55 / 5497.55 206.0 / 206.0 Output Total 3850 / 3850 300 / 300 Balance 1647.55 / 1647.55 -94.0 / -94.0 Medical Nutrition Assessment Dietitian: Malnutrition Criteria Met Start: 02/13/25 10:10 Freq: Status: Active Protocol: Document 02/13/25 10:10 SLA (Rec: 02/13/25 10:10 SLA [id number]) Nutrition Malnutrition Evidence of Yes Malnutrition Exists Malnutrition (severe Acute Illness/Injury ): Evidenced By Suboptimal Energy Intake (Severe),Weight Loss (Severe) Clinical Problem Altered Nutrient-Related Laboratory Values Etiology related to DM and hx of noncompliance of insulin/diet Signs/Symptoms as evidenced by gluc 743 Status Active Problem Acute Disease or Injury Related Malnutrition Etiology 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 Lab / Micro Data 02/14/25 03:40 02/14/25 03:40 Labs: Laboratory Results - last 24 hr 02/13/25 06:35: Sodium 142, Potassium 4.5, Chloride 105, Carbon Dioxide 5.7 L*, Anion Gap 31 H, BUN 21 H, Creatinine 1.26 H, Estim Creat Clear Calc 101.53, Est GFR (MDRD) Non-Af 82, BUN/Creatinine Ratio 16.6, Glucose 308 H, Calcium 8.4 02/13/25 06:55: POC Glucose 278 H 02/13/25 07:59: POC Glucose 258 H 02/13/25 09:03: POC Glucose 246 H 02/13/25 10:15: Sodium 142, Potassium 4.3, Chloride 109 H, Carbon Dioxide 5.6 L*, Anion Gap 28 H, BUN 18, Creatinine 1.16, Estim Creat Clear Calc 110.28, Est GFR (MDRD) Non-Af 90, BUN/Creatinine Ratio 15.3, Glucose 233 H, Calcium 8.3 02/13/25 10:20: POC Glucose 217 H 02/13/25 11:46: POC Glucose 187 H 02/13/25 14:10: Sodium 141, Potassium 3.8, Chloride 110 H, Carbon Dioxide 10.0 L, Anion Gap 21 H, BUN 17, Creatinine 1.18, Estim Creat Clear Calc 108.41, Est GFR (MDRD) Non-Af 88, BUN/Creatinine Ratio 14.2, Glucose 211 H, Calcium 8.3 02/13/25 14:12: POC Glucose 192 H 02/13/25 15:05: POC Glucose 155 H 02/13/25 16:59: POC Glucose 149 H 02/13/25 18:15: Sodium 140, Potassium 3.8, Chloride 108, Carbon Dioxide 16.8 L, Anion Gap 16 H, BUN 16, Creatinine 1.12, Estim Creat Clear Calc 114.22, Est GFR (MDRD) Non-Af 94, BUN/Creatinine Ratio 14.6, Glucose 202 H, Calcium 8.4 02/13/25 18:20: POC Glucose 186 H 02/13/25 19:47: POC Glucose 129 H 02/13/25 20:46: POC Glucose 107 H 02/13/25 22:06: POC Glucose 86 02/13/25 22:19: Sodium 143, Potassium 3.3, Chloride 112 H, Carbon Dioxide 17.6 L, Anion Gap 14, BUN 15, Creatinine 1.03, Estim Creat Clear Calc 124.20, Est GFR (MDRD) Non-Af 104, BUN/Creatinine Ratio 14.8, Glucose 79, Calcium 8.5 02/13/25 23:02: POC Glucose 64 L 02/13/25 23:31: POC Glucose 88 02/14/25 00:33: POC Glucose 89 02/14/25 01:19: POC Glucose 89 02/14/25 02:31: POC Glucose 82 02/14/25 03:40: WBC 6.3, RBC 3.98 L, Hgb 9.0 L, Hct 28.5 L, MCV 71.6 L, MCH 22.6 L, MCHC 31.6 L D, RDW Std Deviation 43.4, RDW Coeff of Rabia 17.2 H, Plt Count TNP, MPV 9.5, Immature Gran % (Auto) 0.300, Neut % (Auto) 67.3, Lymph % (Auto) 24.7, [place] % (Auto) 5.7, Eos % (Auto) 1.7, Baso % (Auto) 0.3, Absolute Neuts (auto) 4.3, Absolute Lymphs (auto) 1.56, Nucleated RBC % 0, Differential Comment SCANNED, Platelet Estimate ADEQUATE, Sodium 141, Potassium 3.2 L, Chloride 109 H, Carbon Dioxide 16.7 L, Anion Gap 15, BUN 14, Creatinine 0.94, Estim Creat Clear Calc 136.94, Est GFR (MDRD) Non-Af 117, BUN/Creatinine Ratio 15.2, Glucose 98, Calcium 8.2, Phosphorus 1.7 L, Magnesium 1.5 02/14/25 03:52: POC Glucose 88 02/14/25 04:40: POC Glucose 97 02/14/25 05:26: POC Glucose 111 H 02/14/25 06:26: POC Glucose 104 Micro: Microbiology 02/13/25 02:57 Stool Enteric Bacteriology - Final 02/13/25 02:57 Stool C. difficile GDH Antigen & Toxins - Final 02/13/25 02:57 Stool Clostridioides difficile (PCR) - Final 02/13/25 02:57 Nasal Secretion MRSA (PCR) - Final Physical Exam Narrative GENERAL: Lethargic and appears ill looking HEENT: Atraumatic; normocephalic EYES; Anicteric, Normal Conjunctiva NECK; supple, normal thyroid, RESPIRATORY: Diminished to auscultation CARDIOVASCULAR: Regular S1 S2, GI: soft, normoactive bowel sounds, : No Renal angle tenderness; EXTREMITIES: No edema, no clubbing, MUSCULOSKELETAL: no muscle wasting NEURO: Awake; no lateralizing signs. SKIN: No Rash PSYCH; Flat affect Assessment & Plan Assessment/Plan (1) DKA (diabetic ketoacidoses): PLAN: Plan Patient is a 24-year-old gentleman with history of diabetes mellitus type 1 with multiple hospitalizations who presented with shortness of breath nausea,vomiting and diarrhea. An assessment of diabetic ketoacidosis was made admitted to the intensive care unit for further management 1. Diabetes mellitus type 1 presented with DKA ? Patient admitted to the intensive care unit management IV fluid resuscitation, every 4 BMPs, correction of electrolytes ? Patient DKA resolved started patient on long-acting insulin, scheduled scrota acting insulin as well as sliding scale coverage 2. Severe metabolic acidosis ? Secondary to patient DKA patient started on bicarb drip ? 02/14/2025; patient bicarb up to 16.7 we will discontinue bicarb drip 3. RADHA ? Secondary to severe dehydration from DKA patient being managed with IV fluid with subsequent monitoring of electrolyte 4. Acute gastroenteritis ? Patient placed on the enteric precautions while stool for C. difficile is being ruled treated symptomatically patient 5. Hyperkalemia ? Pseudohyperkalemia secondary to hyperglycemia I do expect rapid improvement with treatment of patient hyperglycemia ? 02/14/2025; hyperkalemia resolved 6. Hypokalemia ? 02/14/2025 potassium as of 02/14/2025 was 3.2 additional replacement given 6. Anemia ? Secondary to chronic disorder monitoring H&H and transfuse if patient becomes symptomatic or hemoglobin falls below 7 7. History of recurrent PEs ? Patient patient was previously on Xarelto not on his home medications plan is to reconcile 8. GERD ? On PPI 7. DVT prophylaxis ? Patient started on heparin pending medication reconciliation Time critical spent in the patient's overall evaluation,decision-making process, review of diagnostic data, adjustment of management, discussion with other providers, nursing nursing and ancillary staff involved in patient's care documentation, 50 Minutes Charges/Coding Visit Charges Inpatient E&M: [id number] [id number]
[2025-02-14 08:24] LABS: Bedside Glucose 121 mg/dL (74-106)
[2025-02-14] MEDS: Insulin Glargine-YFGN 100 UNIT/ML Pen 20 UNIT SC (08:48)
[2025-02-14] MEDS: Sodium Phosphate/Na Biphos 15 MMOL in 0.9% Normal Saline (250mL Bag) 250 ML 125 MMOL IV (08:50)
[2025-02-14] MEDS: Heparin Injection (Vial) 5,000 UNIT/ML VIAL 5000 UNIT SC ×2 (08:53→23:17)
--- NOTE | 2025-02-14 09:06 | PN.CC_ITS ---
Objective Data Objective Data Vital Signs: Vital Signs Last response 3 Temperature 37.0 C 02/14/25 08:00 Temperature Source Oral 02/14/25 08:00 Pulse Rate 99 02/14/25 09:00 Respiratory Rate 18 02/14/25 09:00 Respiratory Effort Short of Breath 02/14/25 04:00 Respiratory Pattern Tachypnea 02/14/25 04:00 Blood Pressure 112/76 02/14/25 09:00 Blood Pressure Mean 88 02/14/25 09:00 Blood Pressure Source Monitor 02/14/25 09:00 Blood Pressure Position Semi-Fowlers 02/14/25 09:00 Blood Pressure Location Left Arm 02/14/25 09:00 Pulse Ox 98 02/14/25 09:04 Oxygen Delivery Method Room Air 02/14/25 09:04 I&O: I&O Last 24 Hours 3 02/13/25 02/13/25 02/14/25 11:59 23:59 11:59 Intake Total 4184.44 / 5497.55 1313.11 / 5497.55 1588.5 / 1588.5 Output Total 3300 / 3850 550 / 3850 300 / 300 Balance 884.44 / 1647.55 763.11 / 1647.55 1288.5 / 1288.5 I&O: Total Stay 3 02/12/25 22:39 thru 02/14/25 08:52 Intake Total 7086.05 Output Total 4150 Balance 2936.05 Current Meds Ordered / Administered: Current meds ordered / Administered 3 Generic Name Dose Route Start Last Admin Trade Name Freq PRN Reason Stop Dose Admin Acetaminophen 650 mg 02/13/25 02:43 Acetaminophen 325 Mg Tablet PO Q4H PRN PRN Fever, pain 1-10 Al Hydroxide/Mg Hydroxide 30 ml 02/13/25 02:43 Mag Hydrox/Al Hydrox/Simeth 30 Ml Udc PO Q6H PRN PRN Gastric Burning Albuterol Sulfate 2.5 mg 02/13/25 02:43 Albuterol 2.5 Mg/3 Ml Vial.Neb. INHALATION Q2H PRN PRN Dyspnea, wheezing Guaifenesin 10 ml 02/13/25 02:43 Guaifenesin 10 Ml Udc (200mg/10ml) PO Q4H PRN PRN COUGH Heparin Sodium (Porcine) 5,000 unit 02/13/25 10:00 02/14/25 08:53 Heparin Injection (Vial) 5,000 Unit/Ml Vial SC 5,000 unit Q12 LILLY Administration Hydralazine HCl 10 mg 02/13/25 02:43 Hydralazine 20 Mg/Ml Vial IV Q4H PRN PRN SBP > 160 Protocol Dextrose 250 mls @ 999 mls/hr 02/13/25 02:43 02/13/25 23:20 Dextrose 10%-Water IV Infused .Q16M PRN Infusion Hypoglycemic Protocol Protocol Pantoprazole Sodium 40 mg/ 110 mls @ 330 mls/hr 02/13/25 02:43 02/13/25 21:16 Sodium Chloride IV Infused Q12 LILLY Infusion Sodium Chloride 100 mls @ 15 mls/hr 02/13/25 02:56 02/14/25 08:03 IV 0 mls/hr .Q6H40M PRN Infusion Saline Flush Sodium Chloride 100 mls @ 15 mls/hr 02/13/25 02:56 IV .Q6H40M PRN Additional IVPB Infusion Insulin Glargine 20 unit 02/14/25 08:18 02/14/25 08:48 Insulin Glargine-Yfgn 100 Unit/Ml Pen SC 20 unit DAILY LILLY Administration Insulin Human Lispro 0 unit 02/14/25 08:00 Insulin Lispro 100 Unit/Ml Insuln.Pen SC ACHS [facility] Protocol Melatonin 3 mg 02/13/25 02:43 Melatonin 3 Mg Tablet PO QHS PRN PRN INSOMNIA Ondansetron HCl 4 mg 02/13/25 02:43 Ondansetron 4 Mg/2 Ml Vial IV Q8H PRN PRN NAUSEA/VOMITING Prochlorperazine Edisylate 5 mg 02/13/25 02:43 02/13/25 03:17 Prochlorperazine 10 Mg/2 Ml Vial IV 5 mg Q4H PRN PRN Administration Breakthrough Nausea/Vomiting Sodium Chloride 10 - 40 ml 02/13/25 02:56 02/14/25 04:42 0.9% Saline Lock 10 Ml Syringe IV 40 ml UD PRN Administration SALINE FLUSH Medical Records Data Medical Nutrition Assessment Dietitian: Malnutrition Criteria Met Start: 02/13/25 10:10 Freq: Status: Active Protocol: Document 02/13/25 10:10 SLA (Rec: 02/13/25 10:10 [facility] [id number]) Nutrition Malnutrition Evidence of Yes Malnutrition Exists Malnutrition (severe Acute Illness/Injury ): Evidenced By Suboptimal Energy Intake (Severe),Weight Loss (Severe) Clinical Problem Altered Nutrient-Related Laboratory Values Etiology related to DM and hx of noncompliance of insulin/diet Signs/Symptoms as evidenced by gluc 743 Status Active Problem Acute Disease or Injury Related Malnutrition Etiology 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 Lab / Micro Data 02/14/25 03:40 02/14/25 15:09 Labs: Laboratory Results - last 24 hr 02/13/25 09:03: POC Glucose 246 H 02/13/25 10:15: Sodium 142, Potassium 4.3, Chloride 109 H, Carbon Dioxide 5.6 L* , Anion Gap 28 H, BUN 18, Creatinine 1.16, Estim Creat Clear Calc 110.28, Est GFR (MDRD) Non-Af 90, BUN/Creatinine Ratio 15.3, Glucose 233 H, Calcium 8.3 02/13/25 10:20: POC Glucose 217 H 02/13/25 11:46: POC Glucose 187 H 02/13/25 14:10: Sodium 141, Potassium 3.8, Chloride 110 H, Carbon Dioxide 10.0 L , Anion Gap 21 H, BUN 17, Creatinine 1.18, Estim Creat Clear Calc 108.41, Est GFR (MDRD) Non-Af 88, BUN/Creatinine Ratio 14.2, Glucose 211 H, Calcium 8.3 02/13/25 14:12: POC Glucose 192 H 02/13/25 15:05: POC Glucose 155 H 02/13/25 16:59: POC Glucose 149 H 02/13/25 18:15: Sodium 140, Potassium 3.8, Chloride 108, Carbon Dioxide 16.8 L, Anion Gap 16 H, BUN 16, Creatinine 1.12, Estim Creat Clear Calc 114.22, Est GFR (MDRD) Non-Af 94, BUN/Creatinine Ratio 14.6, Glucose 202 H, Calcium 8.4 02/13/25 18:20: POC Glucose 186 H 02/13/25 19:47: POC Glucose 129 H 02/13/25 20:46: POC Glucose 107 H 02/13/25 22:06: POC Glucose 86 02/13/25 22:19: Sodium 143, Potassium 3.3, Chloride 112 H, Carbon Dioxide 17.6 L , Anion Gap 14, BUN 15, Creatinine 1.03, Estim Creat Clear Calc 124.20, Est GFR (MDRD) Non-Af 104, BUN/Creatinine Ratio 14.8, Glucose 79, Calcium 8.5 02/13/25 23:02: POC Glucose 64 L 02/13/25 23:31: POC Glucose 88 02/14/25 00:33: POC Glucose 89 02/14/25 01:19: POC Glucose 89 02/14/25 02:31: POC Glucose 82 02/14/25 03:40: WBC 6.3, RBC 3.98 L, Hgb 9.0 L, Hct 28.5 L, MCV 71.6 L, MCH 22.6 L, MCHC 31.6 L D, RDW Std Deviation 43.4, RDW Coeff of Rabia 17.2 H, Plt Count TNP, MPV 9.5, Immature Gran % (Auto) 0.300, Neut % (Auto) 67.3, Lymph % (Auto) 24.7, [place] % (Auto) 5.7, Eos % (Auto) 1.7, Baso % (Auto) 0.3, Absolute Neuts (auto) 4.3, Absolute Lymphs (auto) 1.56, Nucleated RBC % 0, Differential Comment SCANNED, Platelet Estimate ADEQUATE, Sodium 141, Potassium 3.2 L, Chloride 109 H , Carbon Dioxide 16.7 L, Anion Gap 15, BUN 14, Creatinine 0.94, Estim Creat Clear Calc 136.94, Est GFR (MDRD) Non-Af 117, BUN/Creatinine Ratio 15.2, Glucose 98, Calcium 8.2, Phosphorus 1.7 L, Magnesium 1.5 02/14/25 03:52: POC Glucose 88 02/14/25 04:40: POC Glucose 97 02/14/25 05:26: POC Glucose 111 H 02/14/25 06:26: POC Glucose 104 02/14/25 08:00: POC Glucose 121 H Micro: Microbiology 02/13/25 02:57 Stool Enteric Bacteriology - Final 02/13/25 02:57 Stool C. difficile GDH Antigen & Toxins - Final 02/13/25 02:57 Stool Clostridioides difficile (PCR) - Final Assessment and Plan . Assessment and plan: Subjective: No acute events o/n. Pt reports feeling well this AM, tolerating PO intake Physical Exam: Gen - NAD, well-developed HEENT - MMM. Sclera anicteric Resp - CTAB. Breathing nonlabored CV - RRR. No m/g/r Abd - Soft, NT, ND Ext - No c/c/e. Skin - +buttock pressure ulcer? Neuro - Grossly nonfocal. Alert and oriented I have reviewed the pertinent vital sign, laboratory, and imaging data. ASSESSMENT: # DKA - h/o poorly-controlled DM with recurrent DKA. Noncompliant with insulin, missed doses at home # NAGMA - AG resolved now but residual NAGMA likely in setting of resolving DKA, RADHA, diarrhea # Vomiting/diarrhea # RADHA - resolved # h/o VTE on Xarelto # Erosive esophagitis with previous candidiasis # h/o MSSA pericardial infection tx 2021 # Dysphagia # Buttock ulcer # Chronic anemia # Anxiety/depression # Lactose intolerance # Severe protein calorie malnutrition PLAN: -Transitioned off insulin gtt now, on SQ lantus/SSI. Uptitrate as needed, and monitor for recurrent worsening hyperglycemia/AG -Start PO bicarb for now for NAGMA component, can likely stop soon -C diff Ag/PCR positive but toxin negative, suspect colonization. Procal 0.06. Asymptomatic now. Low threshold to start therapy for this if recurrent GI sx/diarrhea -Wound care -PPI for GERD/esophagitis -Clarify if still supposed to be taking xarelto as OP -Nutrition consult -Need to encourage compliance with medications FEN/GI: PO diet Proph DVT/GI: SQ heparin, protonix Can downgrade from ICU status. We will sign off given clinical improvement and off insulin gtt. Please call us back if any questions or if clinical worsening The entirety of this encounter was done via telemedicine using both audio and video. Consent was obtained.
[2025-02-14] MEDS: Pantoprazole Sodium 40 MG in 0.9% Normal Saline (100mL MB+) 100 ML 330 MG IV ×2 (11:04→23:18)
[2025-02-14] MEDS: Sodium Bicarbonate 650 MG Tablet PO ×4 (11:58→23:17)
[2025-02-14] MEDS: Insulin Lispro 100 UNIT/ML INSULN.PEN SC ×3 (12:00→23:22)
[2025-02-14 12:23] LABS: Bedside Glucose 429 mg/dL (74-106)
--- NOTE | 2025-02-14 12:52 | NURSING ---
Report received from Beverly Dimas RN
[2025-02-14 15:58] LABS: Anion Gap 12 (5-15); BUN 11 mg/dL (4-19); BUN/Creat Ratio 11.8 RATIO (10-20); Carbon Dioxide 17.8 mmol/L (21.0-32.0); Chloride 103 mmol/L (98-108); Creatinine, Serum 0.91 mg/dL (0.70-1.20); EST Glomerular Filtration Rate 120 (>60); Estimated Creatinine Clearance 141.46 ml/min (50-250); Glucose 295 mg/dL (70-99); Potassium 3.6 mmol/L (3.3-5.1); Sodium Level 133 mmol/L (133-145)
[2025-02-14 16:55] LABS: Bedside Glucose 295 mg/dL (74-106)
[2025-02-14] MEDS: Na Biphos/Potassium Phosphate PACKET 1 PACKET PO (23:17)
[2025-02-15 00:01] LABS: Bedside Glucose 353 mg/dL (74-106)
[2025-02-15 06:32] VITALS: BP 107/62; PULSE 83; RESP 16; TEMP 36.8; O2SAT 97
[2025-02-15] MEDS: Insulin Lispro 100 UNIT/ML INSULN.PEN SC ×2 (06:33→11:30)
[2025-02-15 06:54] LABS: Bedside Glucose 354 mg/dL (74-106)
[2025-02-15 07:36] LABS: Absolute Lymphocyte Count 1.66 X10^3/uL (0.83-4.51); Absolute Neutrophil Count 1.8 X10^3/uL (2.0-7.7); Basophil# 0.05 X10^3/uL; Basophil% 1.3 % (0-1); Eosinophil# 0.11 X10^3/uL; Eosinophils% 2.8 % (0-5); Hematocrit 26.6 % (40-54); Hemoglobin 8.5 g/dL (13.0-16.5); Lymphocyte # 1.66 X10^3/ul (0.83-4.51); Mean Corpuscular Hgb 22.6 pg (27.0-32.0); Mean Corpuscular Volume 70.7 fL (80-94); Mean Platelet Vol. 9.3 fl (6.2-12.0); Monocyte# 0.29 X10^3/uL; Monocyte% 7.3 % (0-10); NRBC Flagged by Analyzer 0 % (0-5); Neutrophil # 1.83 X10^3/uL (2.7-7.7); Neutrophil % 46.3 % (47-70); Platelet Count 280 K/mm3 (150-450); RBC Distribution Width CV 16.5 % (11.6-14.6); RBC Distribution Width SD 41.9 fl (35.1-43.9); Red Blood Count 3.76 M/mm3 (4.6-6.2)
--- NOTE | 2025-02-15 07:50 | DS.PCM_ITS ---
Providers Date of Admission: 02/13/25 Date of Discharge: 02/15/25 Primary Care Physician: Dr. Christiano Elise MD Consultations 02/13/25 02:43 Consult: Net Applications Developer / Pulmonary Medicine Routine Consulting Provider: Intensivists/Pulmonary Med Reason for Consult: DKA EMERGENT Consult: No MD Notified: Yes Date Notified: 02/13/25 Time Notified: 02:25 Method of Notification: Text Reason For Visit: DKA Diagnosis Discharge Diagnosis (1) DKA (diabetic ketoacidoses): Status: Acute Code(s): E11.10 - Type 2 diabetes mellitus with ketoacidosis without coma Plan Patient is a 24-year-old gentleman with history of diabetes mellitus type 1 with multiple hospitalizations who presented with shortness of breath nausea,vomiting and diarrhea. An assessment of diabetic ketoacidosis was made admitted to the intensive care unit for further management 1. Diabetes mellitus type 1 presented with DKA ? Patient admitted to the intensive care unit management IV fluid resuscitation, every 4 BMPs, correction of electrolytes ? Patient DKA resolved started patient on long-acting insulin, scheduled scrota acting insulin as well as sliding scale coverage ? 02/15/2025; DKA resolved plan is for patient to be discharged 2. Severe metabolic acidosis ? Secondary to patient DKA patient started on bicarb drip ? 02/14/2025; patient bicarb up to 16.7 we will discontinue bicarb drip 3. RADHA ? Secondary to severe dehydration from DKA patient being managed with IV fluid with subsequent monitoring of electrolyte 4. Acute gastroenteritis ? Patient placed on the enteric precautions while stool for C. difficile is being ruled treated symptomatically patient 5. Hyperkalemia ? Pseudohyperkalemia secondary to hyperglycemia I do expect rapid improvement with treatment of patient hyperglycemia ? 02/14/2025; hyperkalemia resolved 6. Hypokalemia ? 02/14/2025 potassium as of 02/14/2025 was 3.2 additional replacement given 6. Anemia ? Secondary to chronic disorder monitoring H&H and transfuse if patient becomes symptomatic or hemoglobin falls below 7 7. History of recurrent PEs ? Patient patient was previously on Xarelto not on his home medications plan is to reconcile ? Per patient he has been taking of NOACs 8. GERD ? On PPI 7. DVT prophylaxis ? Patient started on heparin pending medication reconciliation Time critical spent in the patient's overall evaluation,decision-making process, review of diagnostic data, adjustment of management, discussion with other providers, nursing nursing and ancillary staff involved in patient's care documentation, 36 minutes Medications at Discharge Home Medications blood sugar diagnostic (OneTouch Verio test strips) 02/27/23 flash glucose sensor (FreeStyle Niru 14 Day Sensor kit) 02/27/23 pen needle, diabetic 31 gauge x 1/3 #100 ea 07/10/24 alcohol swabs (BD Alcohol Swabs) 1 pad topical 4X/DAY prior to injections 02/01/25 blood-glucose meter (True Metrix Glucose Meter) 02/01/25 insulin glargine 100 unit/mL (3 mL) subcutaneous pen (Lantus Solostar U-100 Insulin) 20 unit (0.2 mL) subcut DAILY diabetes #15 mL 02/01/25 insulin lispro 100 unit/mL subcutaneous pen (Humalog KwikPen (U-100) Insulin) 10 unit subcut .with meals DIABETES 1 day #15 mL 02/01/25 lispro sliding scale diabetes 02/01/25 omeprazole 40 mg capsule,delayed release 40 mg PO DAILY gerd 02/13/25 potassium chloride 20 mEq tablet,extended release 20 meq PO BID #20 tabs 02/15/25 potassium, sodium phosphates 280 mg-160 mg-250 mg oral powder packet 1 packet PO BID #20 ea 02/15/25 sodium bicarbonate 650 mg tablet 650 mg PO 2XD #20 tabs 02/15/25 Physical Exam Narrative GENERAL: Cooperative, in no apparent distress HEENT: Atraumatic; normocephalic EYES; Anicteric, Normal Conjunctiva NECK; supple, normal thyroid, RESPIRATORY: Diminished to auscultation CARDIOVASCULAR: Regular S1 S2, GI: soft, normoactive bowel sounds, : No Renal angle tenderness; EXTREMITIES: No edema, no clubbing, MUSCULOSKELETAL: no muscle wasting NEURO: Awake; no lateralizing signs. SKIN: No Rash PSYCH; Flat affect Medical Records Data Medical Nutrition Assessment Dietitian: Malnutrition Criteria Met Start: 02/13/25 10:10 Freq: Status: Active Protocol: Document 02/13/25 10:10 SLA (Rec: 02/13/25 10:10 SLA [id number]) Nutrition Malnutrition Evidence of Yes Malnutrition Exists Malnutrition (severe Acute Illness/Injury ): Evidenced By Suboptimal Energy Intake (Severe),Weight Loss (Severe) Clinical Problem Altered Nutrient-Related Laboratory Values Etiology related to DM and hx of noncompliance of insulin/diet Signs/Symptoms as evidenced by gluc 743 Status Active Problem Acute Disease or Injury Related Malnutrition 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 Weight / BMI Weight Weight: 81.7 kg Body Mass Index (BMI) 23.7 ABG / Lab / Microbiology Data 02/15/25 07:00 02/14/25 15:09 Laboratory: Laboratory Results - last 24 hr 02/14/25 08:00: POC Glucose 121 H 02/14/25 11:57: POC Glucose 429 H 02/14/25 15:09: Sodium 133, Potassium 3.6, Chloride 103, Carbon Dioxide 17.8 L, Anion Gap 12, BUN 11, Creatinine 0.91, Estim Creat Clear Calc 141.46, Est GFR (MDRD) Non-Af 120, BUN/Creatinine Ratio 11.8, Glucose 295 H, Calcium 8.0 02/14/25 16:22: POC Glucose 295 H 02/14/25 23:22: POC Glucose 353 H 02/15/25 06:31: POC Glucose 354 H 02/15/25 07:00: WBC 4.0 L, RBC 3.76 L, Hgb 8.5 L, Hct 26.6 L, MCV 70.7 L, MCH 22.6 L, MCHC 32.0, RDW Std Deviation 41.9, RDW Coeff of Rabia 16.5 H, Plt Count 280, MPV 9.3, Immature Gran % (Auto) 0.300, Neut % (Auto) 46.3 L, Lymph % (Auto) 42.0 H, [place] % (Auto) 7.3, Eos % (Auto) 2.8, Baso % (Auto) 1.3 H, Absolute Neuts (auto) 1.8 L, Absolute Lymphs (auto) 1.66, Nucleated RBC % 0 Microbiology: Microbiology 02/13/25 02:57 Stool Enteric Bacteriology - Final 02/13/25 02:57 Stool C. difficile GDH Antigen & Toxins - Final 02/13/25 02:57 Stool Clostridioides difficile (PCR) - Final 02/13/25 02:57 Nasal Secretion MRSA (PCR) - Final D/C Instructions Discharge Diet: 1800 Calorie Control Diet Discharge Activity: Return to Normal Activity Call your doctor if you observe: Fever of 101 or Higher, Shortness of breath, Fainting spells and Chest pain DC O2, CPAP, BIPAP Needs Home O2 Discharge instructions: No Meaningful Use Info Meaningful Use Meaningful Use Diagnoses (Choose all that apply): None applicable Ischemic Stroke Statin Dosing Therapy Reference: STATIN DOSE THERAPY REFERENCE: * Patients > 75 years receive moderate or high dose statin therapy. * Patients 75 years or YOUNGER should receive HIGH intensity statin dose unless contraindicated. You will be required to document reason for non-treatment if statin daily dose does not meet guidelines. HIGH DOSE STATIN THERAPY DAILY Atorvastatin > than or = to 40 mg Rosuvastatin > than or = to 20 mg Amlodipine + Atorvastatin > than or = to 2.5/40 mg Ezetimibe + Simvastatin 10/80 mg Simvastatin 80mg Discharge Plan Admission Admit Date/Time: 02/13/25 01:39 Attending Provider: Will Mason Primary Care Provider: Christiano Elise Consulting Providers: Ashley Kapoor Discharge Orders/Prescriptions Prescriptions: New sodium bicarbonate 650 mg Tablet 650 mg PO 2XD Qty: 20 0RF potassium, sodium phosphates 280-160-250 mg Powder In Packet 1 packet PO BID Qty: 20 0RF potassium chloride 20 mEq tablet extended release 20 meq PO BID Qty: 20 0RF Continued (DME) OneTouch Verio test strips Strip See Rx Instructions .ROUTE .MEDSUPPLY Rx Instructions: 4x/day (DME) FreeStyle Niru 14 Day Sensor Kit See Rx Instructions .ROUTE .MEDSUPPLY Rx Instructions: As directed (DME) pen needle, diabetic 31 gauge x 1/3 needle See Rx Instructions .Route Qty: 100 3RF Rx Instructions: As directed alcohol swabs [BD Alcohol Swabs] Pads, Medicated 1 pad topical 4X/DAY (DME) blood-glucose meter [True Metrix Glucose Meter] Misc MISCELLANEOUS UD lispro sliding scale insulin lispro [Humalog KwikPen Insulin] 100 unit/mL insulin pen 10 unit subcut .with meals 1 Days Qty: 15 5RF Protocol: 5. Sliding Scale Insulin High Dosing Condition: 150-209 mg/dl = 3 units Condition: 210-259 mg/dl = 6 units Condition: 260-324 mg/dl = 9 units Condition: 325-374 mg/dl = 12 units Condition: 375-409 mg/dl = 14 units Condition: 410-449 mg/dl = 16 units Condition: Greater than 449 call physician Protocol Text: Suggested for: - Patients on Total Daily Insulin Dose of 81-120 units - Very insulin resistant patients HIGH DOSING ALGORITHM Rx Instructions: 3 times daily with meals insulin glargine [Lantus Solostar U-100 Insulin] 100 unit/mL (3 mL) insulin pen 20 unit subcut DAILY Qty: 15 2RF Rx Instructions: Hold if glucose less than 130 mg/dl omeprazole 40 mg capsule,delayed release(DR/EC) 40 mg PO DAILY Referrals / Follow Up: Christiano Elise MD [Primary Care Provider] - Disposition Disposition (needs filled in before D/C Order can be placed): Home, Self Care Charges/Coding Visit Charges Inpatient E&M: 52862 Disch Hosp >30min
[2025-02-15 08:09] LABS: Anion Gap 10 (5-15); BUN 9 mg/dL (4-19); BUN/Creat Ratio 10.9 RATIO (10-20); Calcium,Total 8.3 mg/dL (7.6-11.0); Carbon Dioxide 19.9 mmol/L (21.0-32.0); Chloride 103 mmol/L (98-108); Creatinine, Serum 0.85 mg/dL (0.70-1.20); EST Glomerular Filtration Rate 124 (>60); Estimated Creatinine Clearance 151.44 ml/min (50-250); Glucose 342 mg/dL (70-99); Potassium 3.3 mmol/L (3.3-5.1); Sodium Level 134 mmol/L (133-145)
[2025-02-15 10:09] VITALS: BMI 24.9
[2025-02-15 10:10] VITALS: BP 121/78; PULSE 99; RESP 18; TEMP 36.8; O2SAT 100
[2025-02-15] MEDS: Heparin Injection (Vial) 5,000 UNIT/ML VIAL 5000 UNIT SC (10:16)
[2025-02-15] MEDS: Na Biphos/Potassium Phosphate PACKET 1 PACKET PO (10:16)
[2025-02-15] MEDS: Pantoprazole Sodium 40 MG in 0.9% Normal Saline (100mL MB+) 100 ML 330 MG IV (10:16)
[2025-02-15] MEDS: Insulin Glargine-YFGN 100 UNIT/ML Pen 20 UNIT SC (10:16)
[2025-02-15] MEDS: Sodium Bicarbonate 650 MG Tablet PO ×2 (10:17→14:32)
[2025-02-15] MEDS: 0.9% Saline Lock 10 ML Syringe IV (10:18)
[2025-02-15 11:50] LABS: Bedside Glucose 283 mg/dL (74-106)
[2025-02-15 14:26] VITALS: BP 109/65; PULSE 94; RESP 18; TEMP 37.2; O2SAT 100
== END 2025-02-15 15:45 | disposition home or self-care (01) | DRG 420 ==
LOC: ED 02-13 01:39 → ICU 02-13 01:51 → MS3 02-14 12:42
PROVIDERS: Internal Medicine Critical Care Medicine; Internal Medicine Pulmonary Disease; Admitting Provider Family Medicine; Emergency Provider Emergency Medicine; PCP Family Medicine; Visit Provider Internal Medicine
DX: E10.10 Type 1 diabetes mellitus with ketoacidosis without coma (principal); E43 Unspecified severe protein-calorie malnutrition; D63.8 Anemia in other chronic diseases classified elsewhere; E10.22 Type 1 diabetes mellitus with diabetic chronic kidney disease; D50.9 Iron deficiency anemia, unspecified; N17.9 Acute kidney failure, unspecified; N18.30 Chronic kidney disease, stage 3 unspecified; Z79.4 Long term (current) use of insulin; E87.5 Hyperkalemia; E87.6 Hypokalemia; K52.9 Noninfective gastroenteritis and colitis, unspecified; K21.9 Gastro-esophageal reflux disease without esophagitis; Z86.718 Personal history of other venous thrombosis and embolism; Z79.899 Other long term (current) drug therapy; Z79.01 Long term (current) use of anticoagulants; Z68.24 Body mass index [BMI] 24.0-24.9, adult
CPT/HCPCS: 36415; 36600; 71045; 80048; 80076; 82010; 82803; 82962; 83605; 83690; 83735; 83930; 84100; 84145; 85025; 87493; 87506; 87641; 94762; 97802; 99285; A4216; J2405

== ENCOUNTER 2025-03-07 15:48 | Inpatient (IN) | payer MEDICAID, SELFPAY ==
[2025-03-07] VITALS (13 sets, daily range): BP systolic 85–129; BP diastolic 37–101; PULSE 85–117; RESP 16–33; TEMP 34.1–36.4; O2SAT 98–100; BMI 24.7; BMI 26.2
--- NOTE | 2025-03-07 16:11 | EDS_ITS ---
<Statement entered by Jose Hughes DO - 03/07/25 18:48> Patient was seen and examined with nurse practitioner Memo All components of the history and physical confirmed and agreed. History of present illness and physical exam: Patient is a 24-year-old male past medical history of diabetes, long history of noncompliance who presented to the emergency department with a chief complaint of nausea, vomiting, elevated blood sugar. Per the patient the patient did not take any insulin since yesterday morning and states that he has been having some nausea vomiting and not feeling well overall. Patient's grandmother called the ambulance to have him brought here for further evaluation management. Review of systems: Agree with above Physical exam: Agree with above MDM Patient is a 24-year-old male who presents to the emergency department the chief complaint of elevated blood sugar. On the differential diagnose includes Melamin to HHS, DKA, viral gastroenteritis. Once workup is obtained reviewed he will be reevaluated. Patient's CBC was reviewed and showed white count of 18,000, hemoglobin is 10, platelet count was noted be 518. Patient sodium was noted be low indicating hyponatremia at 124 however this is likely falsely low secondary to elevated blood glucose, potassium was 6.1, no EKG changes noted however he will be given insulin given his DKA and he will be given calcium gluconate, anion gap was noted to be elevated to 48. Patient's creatinine was elevated 1.93, lactic acid elevated 3.9, glucose noted be 941. Patient AST and ALT were 23 and 33 respectively, lipase was 25. Patient beta-hydroxybutyrate of 14.7. Patient's venous blood gas was reviewed and showed a pH of 6.94 with a CO2 of less than 5 given that this is a venous gas sample and a close to 7 will add on the ABG to evaluate if he needs bicarb or not. Patient's arterial blood gas was obtained reviewed showed pH 7.02 therefore we will hold off on bicarb at this point in time. Patient was given 30 cc/kg bolus of IV fluids given insulin bolus and insulin drip started. Patient's case was discussed with hospitalist by Memo who accept patient to the intensive care unit Dr. Randolph. Patient was notified all course concerns answered. At this point in time 6:46 PM there is no identifiable source infection and his DKA is likely secondary to medication noncompliance therefore we will hold off on IV antibiotics at this point in time. Critical care time 47 minutes Final impression: Diabetic ketoacidosis Lactic acidosis Hyperglycemia Pseudohyponatremia secondary to hyperglycemia Hyperkalemia Disposition: Patient will be admitted to the hospital to the intensive care unit Supervising attending attestation: Jose YI History of Present Illness Chief Complaint: Hyperglycemia Narrative Narrative: Patient is a 24-year-old male with history of diabetes, long history of noncompliance who presents to the Emergency Department for nausea, vomiting, elevated blood sugar. Per the patient, the patient did not take any insulin since yesterday morning. Patient states that yesterday the patient developed some nausea and vomiting, patient did not take any of the day or night insulin. Patient states that he cannot stop vomiting, his grandmother called the ambulance and brought him here. [facility] Medical History Medical non-compliance Diabetic ketoacidosis History of venous thromboembolism C. difficile enteritis Chronic anticoagulation History of diabetes mellitus Anticoagulant long-term use Anemia due to chronic illness [place] grade D esophagitis Minerva esophagitis Gastroparesis Recurrent pulmonary embolism AP window (aortopulmonary window) Anxiety Depression DVT (deep venous thrombosis) Hypokalemia Noncompliance with diabetes treatment History of medication noncompliance Severe protein-calorie malnutrition Kidney disease Hypokalemia Non-smoker Asthma Psychosocial problem femur surgery Diabetes mellitus type 1 GERD (gastroesophageal reflux disease) Home Medications ?Medication ?Instructions ?Recorded ?Last Taken ?Type blood sugar diagnostic (OneTouch 02/27/23 Unknown His tory Verio test strips) flash glucose sensor (FreeStyle 02/27/23 Unknown Hist ory Niru 14 Day Sensor kit) pen needle, diabetic 31 gauge x #100 ea 07/10/24 Unkno wn Rx 1/3 alcohol swabs (BD Alcohol Swabs) 1 pad topical 4X/DAY prior to 02/01/25 Unknown History injections blood-glucose meter (True Metrix 02/01/25 Unknown His tory Glucose Meter) insulin glargine 100 unit/mL (3 20 unit (0.2 mL) subcu t DAILY 02/01/25 Unknown Rx mL) subcutaneous pen (Lantus diabetes #15 mL Solostar U-100 Insulin) insulin lispro 100 unit/mL 10 unit subcut .with meals 02/01/25 Unknown Rx subcutaneous pen (Humalog KwikPen DIABETES 1 day #15 m L (U-100) Insulin) lispro sliding scale diabetes 02/01/25 Unknown Hi story omeprazole 40 mg capsule,delayed 40 mg PO DAILY gerd 0 02/13/25 Unknown History release potassium chloride 20 mEq 20 meq PO BID #20 tabs 02/15 Unknown Rx tablet,extended release potassium, sodium phosphates 280 1 packet PO BID #20 e a 02/15/25 Unknown Rx mg-160 mg-250 mg oral powder packet sodium bicarbonate 650 mg tablet 650 mg PO 2XD #20 tab s 02/15/25 Unknown Rx Allergy/AdvReac Type Severity Reaction Status Date / Time vancomycin Allergy local Verified 03/07/25 15:51 rash/hives to IV site Family History Father Polysubstance overdose Patient father young secondary to OD. Mother Iron deficiency anemia Other Asthma CVA (cerebral vascular accident) Diabetes Hypertension Thyroid disorder Surgical History H/O right knee surgery History of surgery on extremity Hx of knee surgery Social History (Updated 03/07/25 @ 16:20 by Pattie Orta) household members: family housing: apartment Smoking Status: Never smoker alcohol intake: current alcohol intake frequency: a few times a month substance use type: does not use ROS ROS ED ROS Narrative Constitutional: Negative for fever, chills, weight loss. Positive for weakness Eyes: Negative for vision loss, vision change, double vision ENT: Negative for any sore throat, ear pain, congestion Cardiovascular: Negative for any chest pain, tightness, palpitations Respiratory: Negative for any cough, sputum production, hemoptysis, dyspnea, dyspnea on exertion, orthopnea Gastrointestinal: Negative for any abdominal pain, diarrhea, constipation, blood in stool, blood in vomit. Positive for nausea and vomiting : Negative for any urinary frequency, dysuria, retention, blood in urine Muscle skeletal: Negative for any neck pain, back pain Neurological: Negative for any headache, syncope, dizziness Skin: Negative for any rashes, itching, abrasions, lacerations Psychiatric: Negative for any depression, anxiety, stress, suicidal ideation, homicidal ideation Hematologic: Negative for any excessive bruising, easy bleeding EXAM Physical Exam Narrative Exam Narrative: Vital signs reviewed. Patient slight tachycardic, patient is tachypneic, I do smell a strong ketone like odor. HEET: Head normocephalic atraumatic, TMs clear bilaterally. Posterior pharynx is clear, dry mucous membranes. Nares clear bilaterally. Patient has severely bad dentition Neck: Supple with no lymphadenopathy or tenderness. No signs of meningismus. Cardiac: tachycardic rate no murmurs gallops or rubs, equal peripheral pulses bilaterally. Respiratory: Lungs clear to auscultation bilaterally. However patient is tachypneic, no chest tenderness. Abdomen: Soft, nontender, nondistended. No abdominal bruit or pulsatile masses. No hepatosplenomegaly Extremities: No peripheral edema, no signs of gross trauma or deformity. Active full range of motion of all extremities. Neuro: Cranial nerves II through XII intact, no focal neurological deficits. Skin: Clean dry and intact with no rash, purpura, petechiae, vesicles or pustules. Skin is dry, multiple bite dos santos on arms and legs. Backs/flank: No CVA tenderness, no midline spinal tenderness, no deformity. Psych: Normal mood and affect. No SI, HI or acute psychosis. Const Vital Signs: 03/07/25 15:49 03/07/25 16:14 03/07/25 16:48 Temperature 97.4 F L Temperature Source Temporal Pulse Rate 113 H 111 H Respiratory Rate 20 H 26 H Respiratory Effort Normal Respiratory Pattern Tachypnea Blood Pressure 99/48 L 99/58 L Blood Pressure Mean 65 71 Pulse Ox 100 98 03/07/25 17:00 Temperature Temperature Source Pulse Rate 111 H Respiratory Rate 26 H Respiratory Effort Respiratory Pattern Blood Pressure 92/45 L Blood Pressure Mean 60 Pulse Ox 98 Positive cachectic and unkempt General Appearance ED: unkempt and cachectic Nutritional Appearance: cachectic Psych Appearance: unkempt MDM MDM Lab Data Labs: Laboratory Results - last 24 hr 03/07/25 03/07/25 16:11 16:26 WBC 18.8 H RBC 4.44 L Hgb 10.0 L Hct 35.7 L MCV 80.4 MCH 22.5 L MCHC 28.0 L RDW Std Deviation 44.9 H RDW Coeff of Rabia 15.7 H Plt Count 518 H MPV 10.5 Immature Gran % (Auto) 0.700 Neut % (Auto) 81.3 H Lymph % (Auto) 12.7 L Morton % (Auto) 4.5 Eos % (Auto) 0.1 Baso % (Auto) 0.7 Absolute Neuts (auto) 15.3 H Absolute Lymphs (auto) 2.39 Nucleated RBC % 0 Sodium 124 L Potassium 6.1 H* Chloride 78 L Carbon Dioxide 2.5 L* Anion Gap TNP BUN 34 H Creatinine 1.93 H Estim Creat Clear Calc 66.70 Est GFR (MDRD) Non-Af 49 L BUN/Creatinine Ratio 17.8 Glucose 941 H* Lactic Acid 3.9 H* Calcium 9.5 Total Bilirubin 1.04 AST 23 ALT 33 Alkaline Phosphatase 166 H Total Protein 7.8 Albumin 4.5 Globulin 3.3 Albumin/Globulin Ratio 1.4 Lipase 25 b-Hydroxybutyric mmol/L 14.7 POC Glucose > 500 H* ABG Data ABG results: ABG 03/07/25 03/07/25 16:31 17:09 Specimen Type MARILYNN ART Sample Site Not entered R Brach pH 7.02 L* Bicarbonate Actual 1.8 L Total CO2 < 5 Base Excess -29 L O2 Saturation 98 ABG pCO2 6.8 L* ABG pO2 157 H VBG pH 6.94 L* VBG pO2 56 H VBG Total CO2 < 5 L VBG O2 Sat (Calc) 69 VBG Base Excess -29 L POC Mix VBG pCO2 Pt Tmp 14.4 L* O2 Delivery Device Not entered Room Air Vent Mode Not entered Crit Call To/Read Back Yes Yes Blood Gas Notified Whom [facility] Blood Gas Notified Time 16:32:56 17:10:55 EKG Sinus tachycardia: Attestation: I personally reviewed and interpreted this EKG as follows: Interpretation: Sinus Rhythm Comments: Sinus tachycardia, rate 109 bpm, CT interval 148 ms, QRS duration 98 ms, no acute ST elevation, no acute infarct noted. Treatment and Re-Evaluation :: Differential diagnosis includes however is not limited to: DKA, viral gastritis, anemia, medication noncompliance, hyperglycemia with no DKA Patient is tachypneic, tachycardic, I do have a strong smell of ketones around the patient. Patient's abdominal exam was unremarkable. Patient received DKA workup including basic labs, lactic acid, VBG as well as acetones. 2 L of normal saline will be given as well as IV Zofran. Patient will need to be reevaluated. Patient has not been med compliant and this is a chronic problem for the patient. Patient CBC shows leukocytosis with white blood count 18.8, hemoglobin is 10.0, it is baseline for the patient. Patient's lactic acid was elevated 3.9, patient is given 2 L of normal saline. Lipase was negative. Patient was also given IV Zofran. Patient received without VBG and an ABG, pH was 6.94 as well as CO2 14.4 for the VBG, ABG showed a pH of 7.017, as well as a CO2 of 6.8, IV fluids x 2, as well a s insulin will be given. Insulin given both bolus as well as drip, calcium gluconate. Patient will need admitted to the ICU. Spoke with Dr. Randolph who will accept the patient. Discharge Plan Triage Chief Complaint: Hyperglycemia ED Midlevel Provider: Memo Garcia ED Provider: Jose Hughes Dx/Rx/DC Orders Clinical Impression: DKA (diabetic ketoacidosis), Acute dehydration, Acute alteration in mental status, History of medication noncompliance Prescriptions: No Action (DME) OneTouch Verio test strips Strip See Rx Instructions .ROUTE .MEDSUPPLY Rx Instructions: 4x/day (DME) FreeStyle Niru 14 Day Sensor Kit See Rx Instructions .ROUTE .MEDSUPPLY Rx Instructions: As directed (DME) pen needle, diabetic 31 gauge x 1/3 needle See Rx Instructions .Route Qty: 100 3RF Rx Instructions: As directed alcohol swabs [BD Alcohol Swabs] Pads, Medicated 1 pad topical 4X/DAY (DME) blood-glucose meter [True Metrix Glucose Meter] Misc MISCELLANEOUS UD lispro sliding scale insulin lispro [Humalog KwikPen Insulin] 100 unit/mL insulin pen 10 unit subcut .with meals 1 Days Qty: 15 5RF Protocol: 5. Sliding Scale Insulin High Dosing Condition: 150-209 mg/dl = 3 units Condition: 210-259 mg/dl = 6 units Condition: 260-324 mg/dl = 9 units Condition: 325-374 mg/dl = 12 units Condition: 375-409 mg/dl = 14 units Condition: 410-449 mg/dl = 16 units Condition: Greater than 449 call physician Protocol Text: Suggested for: - Patients on Total Daily Insulin Dose of 81-120 units - Very insulin resistant patients HIGH DOSING ALGORITHM Rx Instructions: 3 times daily with meals insulin glargine [Lantus Solostar U-100 Insulin] 100 unit/mL (3 mL) insulin pen 20 unit subcut DAILY Qty: 15 2RF Rx Instructions: Hold if glucose less than 130 mg/dl omeprazole 40 mg capsule,delayed release(DR/EC) 40 mg PO DAILY sodium bicarbonate 650 mg Tablet 650 mg PO 2XD Qty: 20 0RF potassium, sodium phosphates 280-160-250 mg Powder In Packet 1 packet PO BID Qty: 20 0RF potassium chloride 20 mEq tablet extended release 20 meq PO BID Qty: 20 0RF Primary Care Provider: Christiano Elise Referrals: Christiano Elise MD [Primary Care Provider] - Print Language: Lao Disposition Disposition: Acute Care Hospital [facility]
[2025-03-07 16:31] LABS: Bedside Glucose > 500 mg/dL (74-106)
[2025-03-07 16:35] LABS: Blood Gas Specimen Type VEN; O2 Delivery Device Not entered; SITE Not entered; Time Given 16:32:56; VBG BASE EXCESS -29 mmol/L (-1.0-3.5); VBG PO2 56 mmHg (25-40); VBG SO2 69 % (50-70); VBG TCO2 < 5 mmol/L (23-33); VBG pCO2 14.4 mmHg (41-51); VBG pH 6.94 (7.32-7.42)
[2025-03-07] MEDS: Ondansetron 4 MG/2 ML Vial IV (16:36)
[2025-03-07] MEDS: 0.9% Normal Saline (1000mL) 1,000 ML 999 ML IV ×4 (16:36→20:47)
[2025-03-07 17:01] LABS: Absolute Lymphocyte Count 2.39 X10^3/uL (0.83-4.51); Absolute Neutrophil Count 15.3 X10^3/uL (2.0-7.7); Basophil# 0.13 X10^3/uL; Basophil% 0.7 % (0-1); Eosinophil# 0.02 X10^3/uL; Eosinophils% 0.1 % (0-5); Hematocrit 35.7 % (40-54); Lymphocyte # 2.39 X10^3/ul (0.83-4.51); Lymphocyte % 12.7 % (19-41); Mean Corpuscular Hgb 22.5 pg (27.0-32.0); Mean Corpuscular Volume 80.4 fL (80-94); Mean Platelet Vol. 10.5 fl (6.2-12.0); Monocyte# 0.85 X10^3/uL; Monocyte% 4.5 % (0-10); NRBC Flagged by Analyzer 0 % (0-5); Neutrophil # 15.27 X10^3/uL (2.7-7.7); Neutrophil % 81.3 % (47-70); Platelet Count 518 K/mm3 (150-450); RBC Distribution Width CV 15.7 % (11.6-14.6); RBC Distribution Width SD 44.9 fl (35.1-43.9); Red Blood Count 4.44 M/mm3 (4.6-6.2); White Blood Count 18.8 K/mm3 (4.4-11.0)
[2025-03-07 17:06] LABS: Lactic Acid 3.9 mmol/L (0.0-2.0)
[2025-03-07 17:13] LABS: Base Excess -29 mmol/L (-2 to +2); Bicarbonate 1.8 mmol/L (22-26); Blood Gas Specimen Type ART; Mode Not entered; O2 Delivery Device Room Air; PO2 157 mmHG (75-100); SITE R Brach; SO2 98 % (95-99); Time Given 17:10:55; Total Carbon Dioxide < 5 mmol/L; pCO2 6.8 mmHg (35-45); pH 7.02 (7.35-7.45)
[2025-03-07 17:17] LABS: Lipase 25 U/L (13-75)
[2025-03-07 17:33] LABS: ALB/GLOB Ratio 1.4 RATIO (0.9-2.4); AST(SGOT) 23 U/L (<=37); Alanine Aminotransfer ALT/SGPT 33 U/L (<=46); Albumin, Serum 4.5 g/dL (3.5-5.0); Alkaline Phosphatase 166 U/L (40-129); BUN 34 mg/dL (4-19); BUN/Creat Ratio 17.8 RATIO (10-20); Calcium,Total 9.5 mg/dL (7.6-11.0); Chloride 78 mmol/L (98-108); Creatinine, Serum 1.93 mg/dL (0.70-1.20); EST Glomerular Filtration Rate 49 (>60); Globulin 3.3 g/dL (2.2-4.2); Protein, Total 7.8 g/dL (5.9-8.4); Sodium Level 124 mmol/L (133-145); Total Bilirubin 1.04 mg/dL (0.00-1.30)
[2025-03-07] MEDS: Dextrose 10%-Water 250 ML 999 ML IV (17:53)
[2025-03-07 18:00] LABS: Bacteria 0 SEEN /hpf (None Seen); Mucous, Urine 0 SEEN /hpf (<or=2+); Red Blood Cells-Urine 0 SEEN /hpf (0-5); Squamous Epithelial Cells - UA 0 SEEN /hpf (0-5); White Blood Cells 0 SEEN /hpf (0-5)
[2025-03-07 18:01] LABS: International Normalized Ratio 1.2; Prothrombin Time (Protime)PT. 15.9 SECONDS (11.7-14.9)
[2025-03-07 18:02] LABS: Partial Thromboplast Time 23.4 Seconds (24.1-36.2)
[2025-03-07] MEDS: Calcium Gluconate 1 GM/10 ML Vial IVP (18:02)
[2025-03-07 18:04] LABS: Carbon Dioxide 2.5 mmol/L (21.0-32.0); Glucose 941 mg/dL (70-99); Potassium 6.1 mmol/L (3.3-5.1)
[2025-03-07 18:05] LABS: BETA-HYDROXYBUTYRATE 14.7 mmol/L (0.0-0.3)
[2025-03-07] MEDS: Insulin Lispro 100 UNIT in 0.9% Normal Saline (100mL Bag) 99 ML 8.5 UNIT CONT INF (18:15)
[2025-03-07] MEDS: Insulin Lispro 100 UNIT/ML VIAL (ADMELOG) 10 UNIT IV (18:16)
[2025-03-07 18:48] LABS: Color, Urine Yellow (Yellow); Glucose, Dipstick 1000 mg/dl (Normal); Leukocyte Esterase-Dipstick Negative /ul (Negative); Nitrite-Dipstick Negative (Negative); Occult Blood-Urine 10 /ul (Negative); Protein-Dipstick 30 mg/dl (Negative); Specific Gravity, Urine 1.015 (1.002-1.030); Urine Bilirubin Dipstick Negative (Negative); Urine Clarity Clear (Clear); Urine Urobilinogen Normal (Normal)
--- NOTE | 2025-03-07 18:50 | RAD_ITS ---
PROCEDURE: CHEST 1 VIEW (PORTABLE) 03/07/2025 REASON FOR EXAM: DKA TECHNIQUE: Frontal view of the chest. COMPARISON: 02/13/2025 FINDINGS: Hardware: None Heart: Cardiac and mediastinal contours are stable. Lungs: The lungs are clear. Bones: The bones are unremarkable. Other: RAD/Chest 1 View (Portable) IMPRESSION: No Acute Findings. Reading Location: [id number]
[2025-03-07 18:56] LABS: Ketone-Dipstick 150 mg/dl (Negative)
--- NOTE | 2025-03-07 19:01 | HP.PCM.HOS_ITS ---
HPI - General General Date of Admission: 03/07/25 Date of Service: 03/07/25 Chief Complaint: Nausea and vomiting HPI Narrative SHIRA STEPHENSON, is a 24-year-old male with a history of type 1 diabetes and multiple admissions for DKA due to noncompliance, GERD, previous DVT who presented to [facility] ED 03/07/2025 as he has not taken any insulin since yesterday morning. Yesterday had some nausea and vomiting and has not taken any insulin since then. Reportedly per patient he cannot stop vomiting so his grandmother called the ambulance and had him brought to the hospital. On arrival to the ED temperature 97.4 with a heart rate of 113, respiratory rate 20, blood pressure 99/48 with above pulse ox 100%. On arrival patient with glucose greater than 500, VBG with a pH of 7.02, bicarb of 1.8 and pCO2 6.8, lactic acid 3.9 with a white blood cell count of 18.8 and hemoglobin of 10. CMP with sodium of 124, potassium 6.1, bicarb 2.5 and a BUN of 34 with a creatinine of 1.93. Patient deemed to be in DKA, started on insulin drip and hospitalist contacted for admission. Patient evaluated at bedside. Patient Kussmaul breathing with his eyes closed at bedside, would not verbally answer questions but shook head no to full ROS. Reportedly does not feel nauseous right now at this time. [facility] Medical History Medical non-compliance Diabetic ketoacidosis History of venous thromboembolism C. difficile enteritis Chronic anticoagulation History of diabetes mellitus Anticoagulant long-term use Anemia due to chronic illness [place] grade D esophagitis Minerva esophagitis Gastroparesis Recurrent pulmonary embolism AP window (aortopulmonary window) Anxiety Depression DVT (deep venous thrombosis) Hypokalemia Noncompliance with diabetes treatment History of medication noncompliance Severe protein-calorie malnutrition Kidney disease Hypokalemia Non-smoker Asthma Psychosocial problem femur surgery Diabetes mellitus type 1 GERD (gastroesophageal reflux disease) Home Medications ?Medication ?Instructions ?Recorded ?Last Taken ?Type blood sugar diagnostic (OneTouch 02/27/23 Unknown His tory Verio test strips) flash glucose sensor (FreeStyle 02/27/23 Unknown [facility] Niru 14 Day Sensor kit) pen needle, diabetic 31 gauge x #100 ea 07/10/24 Unkno wn Rx 1/3 alcohol swabs (BD Alcohol Swabs) 1 pad topical 4X/DAY prior to 02/01/25 Unknown History injections blood-glucose meter (True Metrix 02/01/25 Unknown His tory Glucose Meter) insulin glargine 100 unit/mL (3 20 unit (0.2 mL) subcu t DAILY 02/01/25 Unknown Rx mL) subcutaneous pen (Lantus diabetes #15 mL Solostar U-100 Insulin) insulin lispro 100 unit/mL 10 unit subcut .with meals 02/01/25 Unknown Rx subcutaneous pen (Humalog KwikPen DIABETES 1 day #15 m L (U-100) Insulin) lispro sliding scale diabetes 02/01/25 Unknown Hi story omeprazole 40 mg capsule,delayed 40 mg PO DAILY gerd 0 02/13/25 Unknown History release potassium chloride 20 mEq 20 meq PO BID #20 tabs 02/15 Unknown Rx tablet,extended release potassium, sodium phosphates 280 1 packet PO BID #20 e a 02/15/25 Unknown Rx mg-160 mg-250 mg oral powder packet sodium bicarbonate 650 mg tablet 650 mg PO 2XD #20 tab s 02/15/25 Unknown Rx Allergy/AdvReac Type Severity Reaction Status Date / Time vancomycin Allergy local Verified 03/07/25 15:51 rash/hives to IV site Family History Father Polysubstance overdose Patient father young secondary to OD. Mother Iron deficiency anemia Other Asthma CVA (cerebral vascular accident) Diabetes Hypertension Thyroid disorder Surgical History H/O right knee surgery History of surgery on extremity Hx of knee surgery Social History (Updated 03/07/25 @ 16:20 by Pattie Orta) household members: family housing: apartment Smoking Status: Never smoker alcohol intake: current alcohol intake frequency: a few times a month substance use type: does not use ROS ROS Narrative General: Recent fever HENT: Denies headache Resp: Denies cough, denies shortness of breath Cardiac: Denies chest pain GI: Denies abdominal pain, denies diarrhea, denies current vomiting : Denies any recent problems with urination Vital Signs Vital Signs Vital Signs: 03/07/25 15:49 03/07/25 16:14 03/07/25 16:48 Temperature 97.4 F L Temperature Source Temporal Pulse Rate 113 H 111 H Respiratory Rate 20 H 26 H Respiratory Effort Normal Respiratory Pattern Tachypnea Blood Pressure 99/48 L 99/58 L Blood Pressure Mean 65 71 Pulse Ox 100 98 Oxygen Delivery Method 03/07/25 17:00 03/07/25 18:00 03/07/25 18:20 Temperature Temperature Source Pulse Rate 111 H 108 H Respiratory Rate 26 H 22 H Respiratory Effort Respiratory Pattern Blood Pressure 92/45 L 91/46 L Blood Pressure Mean 60 61 Pulse Ox 98 98 98 Oxygen Delivery Method Room Air Weight Weight: 85 kg Body Mass Index (BMI) 24.7 Physical Exam Narrative General: Patient resting in bed, breathing very hard, keeps eyes closed and will not verbally respond HEENT: Atraumatic, normocephalic Eyes: Resting with eyes closed Neck: Supple Respiratory: Clear to auscultation bilaterally, kussmaul breathing Cardiovascular: Low-grade sinus tachycardia GI: Soft, nontender, nondistended Extremities: No edema Musculoskeletal: Moving all extremities Neuro: No overt focal neurological deficits though patient not participating in exam Skin: No rashes appreciated Psych: Resting with eyes closed Results Lab / Micro Data 03/07/25 16:26 03/07/25 16:26 Labs: Laboratory Results - last 24 hr 03/07/25 16:11: POC Glucose > 500 H* 03/07/25 16:26: WBC 18.8 H, RBC 4.44 L, Hgb 10.0 L, Hct 35.7 L, MCV 80.4, MCH 22.5 L, MCHC 28.0 L, RDW Std Deviation 44.9 H, RDW Coeff of Rabia 15.7 H, Plt Count 518 H, MPV 10.5, Immature Gran % (Auto) 0.700, Neut % (Auto) 81.3 H, Lymph % (Auto) 12.7 L, Cherry % (Auto) 4.5, Eos % (Auto) 0.1, Baso % (Auto) 0.7, A bsolute Neuts (auto) 15.3 H, Absolute Lymphs (auto) 2.39, Nucleated RBC % 0, PT 15.9 H, INR 1.2, APTT 23.4 L, Sodium 124 L, Potassium 6.1 H*, Chloride 78 L, C arbon Dioxide 2.5 L*, Anion Gap TNP, BUN 34 H, Creatinine 1.93 H, Estim Creat Clear Calc 66.70, Est GFR (MDRD) Non-Af 49 L, BUN/Creatinine Ratio 17.8, Glucose 941 H*, Lactic Acid 3.9 H*, Calcium 9.5, Total Bilirubin 1.04, AST 23, ALT 33, A lkaline Phosphatase 166 H, Total Protein 7.8, Albumin 4.5, Globulin 3.3, Albumin/Globulin Ratio 1.4, Lipase 25, b-Hydroxybutyric mmol/L 14.7 03/07/25 17:53: Urine Color Yellow 03/07/25 17:53: Urine Color Cancelled, Urine Clarity Clear 03/07/25 17:53: Urine Clarity Cancelled, Urine pH 5.0 03/07/25 17:53: Urine pH Cancelled, Ur Specific [place] 1.015 03/07/25 17:53: Ur Specific [place] Cancelled, U Specif Grav (Refrac) Cancelled, Urine Protein 30 H 03/07/25 17:53: Urine Protein Cancelled, Urine Glucose (UA) 1000 H 03/07/25 17:53: Urine Glucose (UA) Cancelled, Urine Ketones 150 A* 03/07/25 17:53: Urine Ketones Cancelled, Urine Occult Blood 10 H 03/07/25 17:53: Urine Occult Blood Cancelled, Urine Nitrite Negative 03/07/25 17:53: Urine Nitrite Cancelled, Urine Bilirubin Negative 03/07/25 17:53: Urine Bilirubin Cancelled, Urine Urobilinogen Normal 03/07/25 17:53: Urine Urobilinogen Cancelled, Ur Leukocyte Esterase Negative 03/07/25 17:53: Ur Leukocyte Esterase Cancelled, Urine RBC Cancelled, Urine WBC Cancelled, Ur Squamous Epith Cells Cancelled, Ur Transition Epith Cell Cancelled, Ur Renal Epithelial Cell Cancelled, Calcium Oxalate Crystal Cancelled, Uric Acid Crystals Cancelled, Triple Phos Crystals Cancelled, Other Crystals Cancelled, Amorphous Sediment Cancelled, Urine Bacteria Cancelled, Hyaline Casts Cancelled, Fine Granular Casts Cancelled, Coarse Granular Casts Cancelled, Waxy Casts Cancelled, RBC Casts Cancelled, WBC Casts Cancelled, Urine Mucus Cancelled, Urine Trichomonas Cancelled, Urine Yeast Cancelled Micro: Microbiology 03/07/25 16:56 Mucosa - Nose SARS-CoV-2, Influenza & RSV (PCR) - Final ABG Data ABG results: ABG 03/07/25 03/07/25 16:31 17:09 Specimen Type MARILYNN ART Sample Site Not entered R Brach pH 7.02 L* Bicarbonate Actual 1.8 L Total CO2 < 5 Base Excess -29 L O2 Saturation 98 ABG pCO2 6.8 L* ABG pO2 157 H VBG pH 6.94 L* VBG pO2 56 H VBG Total CO2 < 5 L VBG O2 Sat (Calc) 69 VBG Base Excess -29 L POC Mix VBG pCO2 Pt Tmp 14.4 L* O2 Delivery Device Not entered Room Air Vent Mode Not entered Crit Call To/Read Back Yes Yes Blood Gas Notified Whom tb [facility] Blood Gas Notified Time 16:32:56 17:10:55 Assessment & Plan Assessment/Plan (1) DKA (diabetic ketoacidoses): PLAN: Plan #DKA in setting of chronic type 1 diabetes -Serum glucose in ED greater than 941, anion gap initially reported as 43 but then amended to test not performed but patient with noted bicarb of 1.8 on ABG with a PCO2 of 6.8 and pH 7.02 -Urine ketones 150 - Beta hydroxybutyrate 14 -Admit to intensive care unit -N.p.o. -Insulin drip started -Aggressive fluid hydration -Glucose checks and DKA protocol -BMP every 4H -Replace electrolytes per protocol -I's and O's -A1c in the a.m. -When serum glucose is <250 mg/dl, change IV fluids to D5%1/2NS at 150 ml/hr and continue insulin drip as per nomogram # RADHA -Secondary to #1 -BUN of 34 with creatinine of 1.93 -Aggressive IV fluids as above #Hyperkalemia - Potassium of 6.1 -Suspect that this will decrease significantly with insulin drip and aggressive IV fluids -BMPs every 4 hours as above - Patient given calcium gluconate in ED # Leukocytosis -Suspect secondary #1 -No noted focal concerns for infectious etiology and patient afebrile -Treat aggressively with IV fluids as above -If patient becomes febrile or has any focal complaints can consider cultures and empiric antibiotics # Elevated lactic acid -Lactic acid 3.9, suspect due to all of the above -Aggressive IV fluids #Hx VTE - Previously was on Xarelto, appears he has not been on this since 2023, note from 07/18/2024 reports he had stopped his Xarelto at the prior discharge - That discharge note from 07/10/2024 was reviewed and he was taken off after discharging physician discussed with his PCP as he had had only 1 episode of VTE that was over a year prior #GERD -Continue PPI #DVT ppx: Heparin subcu Radha Randolph MD Charges/Coding Visit Charges Inpatient E&M: 00470 Init Hosp L2
[2025-03-07] MEDS: 0.9% Normal Saline (100mL Bag) 100 ML 15 ML IV (20:00)
[2025-03-07] MEDS: Lidocaine 1% (20 ml mdv) 20 ML Vial 10 ML INFILT (20:01)
[2025-03-07 20:13] LABS: Bedside Glucose > 500 mg/dL (74-106)
[2025-03-07 20:31] LABS: Reflex Lactate? Y
--- NOTE | 2025-03-07 20:55 | RAD_ITS ---
PROCEDURE: CHEST 1 VIEW (PORTABLE) 03/07/2025 REASON FOR EXAM: S/P R IJ ATTEMPT TECHNIQUE: Frontal view of the chest. COMPARISON: Earlier today FINDINGS: Hardware: None Heart: Cardiac and mediastinal contours are stable. Lungs: The lungs are clear. Bones: The bones are unremarkable. Other: RAD/Chest 1 View (Portable) IMPRESSION: No Acute Findings. Reading Location: [id number]
[2025-03-07] MEDS: Heparin Injection (Vial) 5,000 UNIT/ML VIAL 5000 UNIT SC (21:01)
[2025-03-07 21:34] LABS: Magnesium 2.5 mg/dL (1.5-2.2)
[2025-03-07 21:46] LABS: Anion Gap 37 (5-15); BUN 37 mg/dL (4-19); Calcium,Total 8.7 mg/dL (7.6-11.0); Carbon Dioxide 3.4 mmol/L (21.0-32.0); Chloride 93 mmol/L (98-108); Creatinine, Serum 1.74 mg/dL (0.70-1.20); EST Glomerular Filtration Rate 55 (>60); Estimated Creatinine Clearance 67.59 ml/min (50-250); Glucose 654 mg/dL (70-99); Potassium 4.9 mmol/L (3.3-5.1); Sodium Level 133 mmol/L (133-145)
[2025-03-07] MEDS: 0.9% Normal Saline (1000mL) 1,000 ML 500 ML IV (21:47)
--- NOTE | 2025-03-07 22:30 | NURSING ---
Pt arrived on unit with Lt and Rt wrist restraints R/T pulling at lines in ED, not following commands and generalized combativeness. Pt remained in non-violent restraints until 2229 when Pt was able to follow commands, and answer staff appropriately. Pt educated on severity of condition, Placement of femoral central line R/T very poor peripheral access. Pt verbalized understanding at this time. HR, RR remains elevated. BP Low. MD aware and treating. BG 500's: Insulin Drip with Protocol titrations Support and education provided. no additional needs or concerns verbalized or identified.
[2025-03-07 22:49] LABS: Bedside Glucose 341 mg/dL (74-106)
[2025-03-07] MEDS: 0.9% Normal Saline (1000mL) 1,000 ML 250 ML IV (23:35)
[2025-03-07 23:49] LABS: Bedside Glucose > 500 mg/dL (74-106)
[2025-03-07 23:49] LABS: Bedside Glucose > 500 mg/dL (74-106)
[2025-03-07 23:49] LABS: Bedside Glucose 334 mg/dL (74-106)
[2025-03-08] VITALS (47 sets, daily range): BP systolic 71–138; BP diastolic 37–98; PULSE 90–119; RESP 13–21; TEMP 37–38.1; O2SAT 98–100; BMI 26.9
[2025-03-08 00:55] LABS: Bedside Glucose 292 mg/dL (74-106)
[2025-03-08 01:55] LABS: Anion Gap 28 (5-15); BUN 31 mg/dL (4-19); BUN/Creat Ratio 20.4 RATIO (10-20); Calcium,Total 8.2 mg/dL (7.6-11.0); Carbon Dioxide 6.6 mmol/L (21.0-32.0); Chloride 103 mmol/L (98-108); Creatinine, Serum 1.51 mg/dL (0.70-1.20); EST Glomerular Filtration Rate 66 (>60); Estimated Creatinine Clearance 77.89 ml/min (50-250); Glucose 296 mg/dL (70-99); Potassium 4.6 mmol/L (3.3-5.1); Sodium Level 138 mmol/L (133-145)
[2025-03-08 02:38] LABS: Bedside Glucose 245 mg/dL (74-106)
[2025-03-08] MEDS: 0.9% Normal Saline (100mL Bag) 100 ML 15 ML IV (02:45)
[2025-03-08 02:50] LABS: Bedside Glucose 212 mg/dL (74-106)
[2025-03-08] MEDS: Ondansetron 4 MG/2 ML Vial IV ×2 (02:50→08:04)
[2025-03-08] MEDS: 0.9% Normal Saline (1000mL) 1,000 ML 175 ML IV (03:15)
[2025-03-08] MEDS: Albumin Human 25% (100 mL) 25 GM/100 ML BAG IV (03:53)
[2025-03-08] MEDS: KCL 20MEQ in D5.45NS 20 MEQ/1,000 ML IV.SOLN. 150 MEQ IV ×2 (04:11→07:32)
[2025-03-08 04:51] LABS: Absolute Lymphocyte Count 1.85 X10^3/uL (0.83-4.51); Absolute Neutrophil Count 9.1 X10^3/uL (2.0-7.7); Basophil# 0.04 X10^3/uL; Basophil% 0.3 % (0-1); Eosinophil# 0.07 X10^3/uL; Eosinophils% 0.6 % (0-5); Hematocrit 22.9 % (40-54); Hemoglobin 7.4 g/dL (13.0-16.5); Lymphocyte # 1.85 X10^3/ul (0.83-4.51); Lymphocyte % 15.5 % (19-41); Mean Corp Hgb Conc 32.3 g/dL (32-36); Mean Corpuscular Hgb 22.4 pg (27.0-32.0); Mean Platelet Vol. 8.9 fl (6.2-12.0); Monocyte# 0.81 X10^3/uL; Monocyte% 6.8 % (0-10); NRBC Flagged by Analyzer 0 % (0-5); Neutrophil # 9.09 X10^3/uL (2.7-7.7); Neutrophil % 75.9 % (47-70); Platelet Count 332 K/mm3 (150-450); RBC Distribution Width CV 15.7 % (11.6-14.6); RBC Distribution Width SD 38.7 fl (35.1-43.9)
[2025-03-08 04:54] LABS: Bedside Glucose 165 mg/dL (74-106)
[2025-03-08 05:00] LABS: Mean Corpuscular Volume 69.4 fL (80-94)
[2025-03-08 05:08] LABS: Anion Gap 18 (5-15); BUN 26 mg/dL (4-19); Calcium,Total 8.1 mg/dL (7.6-11.0); Carbon Dioxide 13.9 mmol/L (21.0-32.0); Chloride 108 mmol/L (98-108); EST Glomerular Filtration Rate 79 (>60); Estimated Creatinine Clearance 90.47 ml/min (50-250); Glucose 182 mg/dL (70-99); Sodium Level 140 mmol/L (133-145)
[2025-03-08] MEDS: 0.9% Saline Lock 10 ML Syringe IV ×2 (05:29→08:04)
[2025-03-08] MEDS: Norepinephrine 8 MG in 0.9% Normal Saline (250mL Bag) 242 ML 9.4 MG CONT INF (05:30)
[2025-03-08] MEDS: Heparin Injection (Vial) 5,000 UNIT/ML VIAL 5000 UNIT SC ×3 (06:23→21:14)
[2025-03-08] MEDS: TITRATION PARAMETER CHANGE 1 EACH IV (08:18)
[2025-03-08 08:58] LABS: Bedside Glucose 133 mg/dL (74-106)
[2025-03-08 09:03] LABS: Bedside Glucose 116 mg/dL (74-106)
[2025-03-08 09:21] LABS: Anion Gap 14 (5-15); BUN 22 mg/dL (4-19); BUN/Creat Ratio 18.3 RATIO (10-20); Calcium,Total 8.1 mg/dL (7.6-11.0); Carbon Dioxide 16.2 mmol/L (21.0-32.0); Chloride 110 mmol/L (98-108); Creatinine, Serum 1.21 mg/dL (0.70-1.20); EST Glomerular Filtration Rate 86 (>60); Glucose 135 mg/dL (70-99); Potassium 3.9 mmol/L (3.3-5.1); Sodium Level 140 mmol/L (133-145)
[2025-03-08 10:21] LABS: Bedside Glucose 119 mg/dL (74-106)
[2025-03-08 12:09] LABS: Bedside Glucose 132 mg/dL (74-106)
[2025-03-08 12:54] LABS: Anion Gap 12 (5-15); BUN 18 mg/dL (4-19); BUN/Creat Ratio 17.8 RATIO (10-20); Carbon Dioxide 18.5 mmol/L (21.0-32.0); Chloride 109 mmol/L (98-108); Creatinine, Serum 1.02 mg/dL (0.70-1.20); EST Glomerular Filtration Rate 105 (>60); Estimated Creatinine Clearance 115.31 ml/min (50-250); Glucose 150 mg/dL (70-99); Potassium 3.8 mmol/L (3.3-5.1); Sodium Level 140 mmol/L (133-145)
--- NOTE | 2025-03-08 13:42 | PN.HOSP_ITS ---
Reason for Visit Reason for Visit: Diagnoses Type 2 diabetes mellitus with ketoacidosis without coma (03/07/25) Subjective Subjective Patient was seen and examined today, his anion gap was closed x 2, patient is alert but slightly lethargic. I have elected to place him back on basal insulin and give him a diet. I think is best to continue some fluids for now, I changed his fluid to half-normal saline. Objective Data Objective Data Vital Signs: Vital Signs Temp Pulse Resp BP Pulse Ox O2 Del Method 100.0 F H 98 15 105/59 L 98 Room Air 03/08/25 12:00 03/08/25 13:00 03/08/25 13:00 03/08/25 13:00 03/08/25 13:00 03/08/25 13:00 Oxygen Delivery Method Room Air Weight: 85 kg Body Mass Index (BMI) 26.9 Intake & Output: Intake and Output for Last 24 Hours 03/06/25 03/07/25 03/08/25 23:59 23:59 23:59 Intake Total 4285.21 / 4285.21 2063.16 / 2063.16 Output Total 2400 / 2400 1250 / 1250 Balance 1885.21 / 1885.21 813.16 / 813.16 Lab / Micro Data 03/08/25 04:30 03/08/25 12:30 Labs: Laboratory Results - last 24 hr 03/07/25 16:11: POC Glucose > 500 H* 03/07/25 16:26: WBC 18.8 H, RBC 4.44 L, Hgb 10.0 L, Hct 35.7 L, MCV 80.4, MCH 22.5 L, MCHC 28.0 L, RDW Std Deviation 44.9 H, RDW Coeff of Rabia 15.7 H, Plt Count 518 H, MPV 10.5, Immature Gran % (Auto) 0.700, Neut % (Auto) 81.3 H, Lymph % (Auto) 12.7 L, [place] % (Auto) 4.5, Eos % (Auto) 0.1, Baso % (Auto) 0.7, A bsolute Neuts (auto) 15.3 H, Absolute Lymphs (auto) 2.39, Nucleated RBC % 0, PT 15.9 H, INR 1.2, APTT 23.4 L, Sodium 124 L, Potassium 6.1 H*, Chloride 78 L, C arbon Dioxide 2.5 L*, Anion Gap TNP, BUN 34 H, Creatinine 1.93 H, Estim Creat Clear Calc 66.70, Est GFR (MDRD) Non-Af 49 L, BUN/Creatinine Ratio 17.8, Glucose 941 H*, Lactic Acid 3.9 H*, Calcium 9.5, Total Bilirubin 1.04, AST 23, ALT 33, A lkaline Phosphatase 166 H, Total Protein 7.8, Albumin 4.5, Globulin 3.3, Albumin/Globulin Ratio 1.4, Lipase 25, b-Hydroxybutyric mmol/L 14.7 03/07/25 17:53: Urine Color Yellow 03/07/25 17:53: Urine Color Cancelled, Urine Clarity Clear 03/07/25 17:53: Urine Clarity Cancelled, Urine pH 5.0 03/07/25 17:53: Urine pH Cancelled, Ur Specific [place] 1.015 03/07/25 17:53: Ur Specific [place] Cancelled, U Specif Grav (Refrac) Cancelled, Urine Protein 30 H 03/07/25 17:53: Urine Protein Cancelled, Urine Glucose (UA) 1000 H 03/07/25 17:53: Urine Glucose (UA) Cancelled, Urine Ketones 150 A* 03/07/25 17:53: Urine Ketones Cancelled, Urine Occult Blood 10 H 03/07/25 17:53: Urine Occult Blood Cancelled, Urine Nitrite Negative 03/07/25 17:53: Urine Nitrite Cancelled, Urine Bilirubin Negative 03/07/25 17:53: Urine Bilirubin Cancelled, Urine Urobilinogen Normal 03/07/25 17:53: Urine Urobilinogen Cancelled, Ur Leukocyte Esterase Negative 03/07/25 17:53: Ur Leukocyte Esterase Cancelled, Urine RBC 0 SEEN 03/07/25 17:53: Urine RBC Cancelled, Urine WBC 0 SEEN 03/07/25 17:53: Urine WBC Cancelled, Ur Squamous Epith Cells 0 SEEN 03/07/25 17:53: Ur Squamous Epith Cells Cancelled, Ur Transition Epith Cell Cancelled, Ur Renal Epithelial Cell Cancelled, Calcium Oxalate Crystal Cancelled, Uric Acid Crystals Cancelled, Triple Phos Crystals Cancelled, Other Crystals Cancelled, Amorphous Sediment Cancelled, Urine Bacteria 0 SEEN 03/07/25 17:53: Urine Bacteria Cancelled, Hyaline Casts Cancelled, Fine Granular Casts Cancelled, Coarse Granular Casts Cancelled, Waxy Casts Cancelled, RBC Casts Cancelled, WBC Casts Cancelled, Urine Mucus 0 SEEN 03/07/25 17:53: Urine Mucus Cancelled, Urine Trichomonas Cancelled, Urine Yeast Cancelled 03/07/25 19:55: POC Glucose > 500 H* 03/07/25 20:41: POC Glucose > 500 H* 03/07/25 21:05: Sodium 133, Potassium 4.9, Chloride 93 L, Carbon Dioxide 3.4 L*, Anion Gap 37 H, BUN 37 H, Creatinine 1.74 H, Estim Creat Clear Calc 67.59, Est GFR (MDRD) Non-Af 55 L, BUN/Creatinine Ratio 21.0 H, Glucose 654 H*, Lactic Acid 4.0 H*, Calcium 8.7, Magnesium 2.5 H 03/07/25 21:35: POC Glucose > 500 H* 03/07/25 22:30: POC Glucose 341 H 03/07/25 23:31: POC Glucose 334 H 03/08/25 00:33: POC Glucose 292 H 03/08/25 01:00: Sodium 138, Potassium 4.6, Chloride 103, Carbon Dioxide 6.6 L*, Anion Gap 28 H, BUN 31 H, Creatinine 1.51 H, Estim Creat Clear Calc 77.89, Est GFR (MDRD) Non-Af 66, BUN/Creatinine Ratio 20.4 H, Glucose 296 H, Calcium 8.2 03/08/25 01:28: POC Glucose 245 H 03/08/25 02:33: POC Glucose 212 H 03/08/25 04:30: WBC 12.0 H, RBC 3.30 L, Hgb 7.4 L, Hct 22.9 L, MCV 69.4 L D, MCH 22.4 L, MCHC 32.3 D, RDW Std Deviation 38.7, RDW Coeff of Rabia 15.7 H, Plt Count 332, MPV 8.9, Immature Gran % (Auto) 0.900, Neut % (Auto) 75.9 H, Lymph % (Auto) 15.5 L, [place] % (Auto) 6.8, Eos % (Auto) 0.6, Baso % (Auto) 0.3, Absolute Neuts (auto) 9.1 H, Absolute Lymphs (auto) 1.85, Nucleated RBC % 0, Sodium 140, Potassium 4.0, Chloride 108, Carbon Dioxide 13.9 L, Anion Gap 18 H, BUN 26 H, C reatinine 1.30 H, Estim Creat Clear Calc 90.47, Est GFR (MDRD) Non-Af 79, BUN/Creatinine Ratio 20.0, Glucose 182 H, Calcium 8.1 03/08/25 04:34: POC Glucose 165 H 03/08/25 06:29: POC Glucose 133 H 03/08/25 08:40: Sodium 140, Potassium 3.9, Chloride 110 H, Carbon Dioxide 16.2 L , Anion Gap 14, BUN 22 H, Creatinine 1.21 H, Estim Creat Clear Calc 97.20, Est GFR (MDRD) Non-Af 86, BUN/Creatinine Ratio 18.3, Glucose 135 H, Calcium 8.1 03/08/25 08:43: POC Glucose 116 H 03/08/25 10:03: POC Glucose 119 H 03/08/25 11:48: POC Glucose 132 H 03/08/25 12:30: Sodium 140, Potassium 3.8, Chloride 109 H, Carbon Dioxide 18.5 L , Anion Gap 12, BUN 18, Creatinine 1.02, Estim Creat Clear Calc 115.31, Est GFR (MDRD) Non-Af 105, BUN/Creatinine Ratio 17.8, Glucose 150 H, Calcium 8.0 Micro: Microbiology 03/07/25 17:53 Urine Catheter - Catheter Urine Culture - Preliminary Culture exhibits no growth. 03/07/25 16:56 Mucosa - Nose SARS-CoV-2, Influenza & RSV (PCR) - Final ABG Data ABG results: ABG 03/07/25 03/07/25 16:31 17:09 Specimen Type MARILYNN ART Sample Site Not entered R Brach pH 7.02 L* Bicarbonate Actual 1.8 L Total CO2 < 5 Base Excess -29 L O2 Saturation 98 ABG pCO2 6.8 L* ABG pO2 157 H VBG pH 6.94 L* VBG pO2 56 H VBG Total CO2 < 5 L VBG O2 Sat (Calc) 69 VBG Base Excess -29 L POC Mix VBG pCO2 Pt Tmp 14.4 L* O2 Delivery Device Not entered Room Air Vent Mode Not entered Crit Call To/Read Back Yes Yes Blood Gas Notified Whom tb ness Blood Gas Notified Time 16:32:56 17:10:55 Radiography Diagnostic Testing: Radiology Impression Chest X-Ray 03/07/25 18:50 IMPRESSION: No Acute Findings. Reading Location: [facility] Chest X-Ray 03/07/25 20:55 IMPRESSION: No Acute Findings. Reading Location: [facility] Physical Exam Const alert, oriented x3 and no apparent distress General Appearance: cooperative, well kempt and well developed Orientation / Consciousness: awake, oriented to person, oriented to place and oriented to time HEENT normocephalic and head/scalp atraumatic Mouth: dry mucous membranes Eyes PERRL, EOMs intact bilaterally and conjunctivae normal Neck supple, no JVD, thyroid normal and no carotid bruits General: trachea midline Resp normal respiratory effort, no retractions, no use of accessory muscles and clear to auscultation bilaterally Auscultation: Negative for rales, rhonchi or wheezes Cardio regular rate, regular rhythm, S1 normal heart sound, S2 normal heart sound, no murmurs, no rub and no gallops GI normal to inspection, nondistended, normoactive bowel sounds, soft to palpation, non-tender and non-distended Extremity no clubbing, cyanosis or edema Skin no rashes or lesions noted General Skin Exam: no breakdown Neuro oriented x3, CN's II-XII intact bilaterally, moves all extremities, no focal motor deficits and no sensory deficits noted Sensorium / Orientation: awake and alert Speech: speech normal Psych affect normal Assessment & Plan Assessment/Plan (1) DKA (diabetic ketoacidosis): PLAN: Plan 1. Recurrent DKA-most likely secondary to noncompliance, patient was taken off his insulin drip and I will place him back on basal insulin and insulin with each meal, sugars will continue to be monitored, I have elected to continue fluids at the present time. #2 GERD-patient remains on PPI #3 medical noncompliance-complicates care, management, recovery, and prognosis Total clinical time spent by myself addressing the patient's medical issues, reviewing all of his data, and collaborating with patient's care team: 35 minutes Charges/Coding Visit Charges Inpatient E&M: 01049 Subs Hosp L2
[2025-03-08] MEDS: 0.45% Normal Saline 1,000 ML 100 ML IV ×2 (13:45→23:33)
[2025-03-08] MEDS: Insulin Lispro 100 UNIT/ML INSULN.PEN 15 UNIT SC (15:39)
[2025-03-08 15:59] LABS: Bedside Glucose 264 mg/dL (74-106)
[2025-03-08] MEDS: Linezolid 600 MG Tablet PO (21:14)
[2025-03-08] MEDS: Insulin Glargine-YFGN 100 UNIT/ML Pen 20 UNIT SC (21:14)
[2025-03-08] MEDS: Acetaminophen 325 MG Tablet 650 MG PO (21:18)
[2025-03-08 21:36] LABS: Bedside Glucose 317 mg/dL (74-106)
[2025-03-09] VITALS (13 sets, daily range): BP systolic 95–116; BP diastolic 46–73; PULSE 74–101; RESP 14–18; TEMP 36.1–36.7; O2SAT 96–100; BMI 27.6
[2025-03-09 04:23] LABS: Absolute Lymphocyte Count 2.11 X10^3/uL (0.83-4.51); Absolute Neutrophil Count 5.2 X10^3/uL (2.0-7.7); Basophil# 0.04 X10^3/uL; Basophil% 0.5 % (0-1); Eosinophil# 0.13 X10^3/uL; Eosinophils% 1.6 % (0-5); Hematocrit 24.4 % (40-54); Hemoglobin 7.7 g/dL (13.0-16.5); Lymphocyte # 2.11 X10^3/ul (0.83-4.51); Lymphocyte % 26.7 % (19-41); Mean Corp Hgb Conc 31.6 g/dL (32-36); Mean Corpuscular Hgb 22.4 pg (27.0-32.0); Mean Corpuscular Volume 70.9 fL (80-94); Mean Platelet Vol. 8.7 fl (6.2-12.0); Monocyte# 0.43 X10^3/uL; Monocyte% 5.4 % (0-10); NRBC Flagged by Analyzer 0 % (0-5); Neutrophil # 5.15 X10^3/uL (2.7-7.7); Neutrophil % 65.2 % (47-70); Platelet Count 302 K/mm3 (150-450); RBC Distribution Width CV 16.8 % (11.6-14.6); RBC Distribution Width SD 42.6 fl (35.1-43.9); Red Blood Count 3.44 M/mm3 (4.6-6.2); White Blood Count 7.9 K/mm3 (4.4-11.0)
[2025-03-09 05:15] LABS: Magnesium 1.8 mg/dL (1.5-2.2); Phosphorus 1.9 mg/dL (2.7-4.5)
[2025-03-09 05:16] LABS: Anion Gap 11 (5-15); BUN 12 mg/dL (4-19); BUN/Creat Ratio 11.8 RATIO (10-20); Calcium,Total 8.3 mg/dL (7.6-11.0); Carbon Dioxide 19.2 mmol/L (21.0-32.0); Chloride 101 mmol/L (98-108); Creatinine, Serum 0.97 mg/dL (0.70-1.20); EST Glomerular Filtration Rate 111 (>60); Estimated Creatinine Clearance 121.25 ml/min (50-250); Glucose 333 mg/dL (70-99); Potassium 3.9 mmol/L (3.3-5.1); Sodium Level 132 mmol/L (133-145)
[2025-03-09] MEDS: Heparin Injection (Vial) 5,000 UNIT/ML VIAL 5000 UNIT SC ×3 (06:42→21:23)
--- NOTE | 2025-03-09 07:29 | ECHOD_ITS ---
Reason For Study Reason For Study: Endocarditis Procedure This was a 2D Doppler, Color Flow transthoracic echocardiogram. Exam performed portable in ICU/CCU. Left Ventricle Normal LV size. Mild concentric left ventricular hypertrophy. The LV systolic function is normal. EF is 65 %. Stage 1 diastolic dysfunction. Right Ventricle Normal right ventricle. Atria The left and right atria are normal. Mitral Valve Trivial mitral valve insufficiency. Tricuspid Valve Trivial tricuspid valve insufficiency. Unable to estimate RV systolic pressure due to insufficient tricuspid regurgitant envelope. Aortic Valve Trisinus/trileaflet aortic valve. Pulmonic Valve Normal pulmonic valve. Great Vessels Normal sized aortic root. Pericardium/Pleural No pericardial effusion. MMode/2D Measurements & Calculations LVIDd: 4.6 cm IVSd: 1.2 cm Ao root diam: 3.0 cm LVIDs: 2.7 cm LVPWd: 1.2 cm RVDd: 3.8 cm FS: 41.8 % LAV(MOD-bp): 61.0 ml LVAd ap4: 35.0 cm2 SV(MOD-sp4): 68.5 ml LAV(MOD-bp) Indexed: 29.7 ml/m2 LVLd ap4: 9.0 cm SI(MOD-sp4): 33.4 ml/m2 LAV(MOD-sp2): 66.0 ml EDV(MOD-sp4): 109.9 ml LAV(MOD-sp4): 49.2 ml EDV(sp4-el): 115.4 ml LVAs ap4: 19.5 cm2 LVLs ap4: 7.5 cm ESV(MOD-sp4): 41.4 ml ESV(sp4-el): 42.9 ml EF(MOD-sp4): 62.3 % EF(sp4-el): 62.8 % SV(sp4-el): 72.5 ml LA A4 area: 19.8 cm2 LA dimension(2D): 4.1 cm RA A4 area: 17.5 cm2 TAPSE: 1.9 cm Time Measurements MV dec time: 0.23 sec Doppler Measurements & Calculations MV E max trev: 106.6 cm/sec Lat Peak E' Trev: 15.8 cm/sec Med Peak E' Trev: 10.8 cm/sec MV A max trev: 76.9 cm/sec E/E' lat: 6.7 E/E' med: 9.9 MV E/A: 1.4 MV V2 max: 131.1 cm/sec MV P1/2t max trev: 132.9 cm/sec Ao V2 max: 129.9 cm/sec MV max P.9 mmHg MV P1/2t: 64.2 msec Ao max P.8 mmHg MV V2 mean: 69.8 cm/sec Ao V2 mean: 91.4 cm/sec MV mean P.4 mmHg MV dec slope: 606.6 cm/sec2 Ao mean P.8 mmHg MV V2 VTI: 28.4 cm MVA(P1/2t): 3.4 cm2 Ao V2 VTI: 28.7 cm AV (velocity ratio): 0.83 LV V1 max: 106.1 cm/sec MR max trev: 448.6 cm/sec PA V2 max: 84.3 cm/sec LV V1 max P.5 mmHg MR max P.5 mmHg LV V1 mean P.9 mmHg LV V1 mean: 81.7 cm/sec LV V1 VTI: 23.8 cm ECHO/Echo Complete Interpretation Summary Mild concentric left ventricular hypertrophy. The LV systolic function is normal. EF is 65 %. Stage 1 diastolic dysfunction. No evidence of endocarditis on this surface ecocardiogram. Recommend RACHAEL for fu rher evaluation if clinically indicated Ordering Physician: Edilma Dennison Performed By: Ulises Carrera RCS
[2025-03-09 07:30] LABS: VBG Bicarbonate 3 mmol/L (22-26)
[2025-03-09 08:03] LABS: Bedside Glucose 240 mg/dL (74-106)
[2025-03-09] MEDS: Insulin Lispro 100 UNIT/ML INSULN.PEN 15 UNIT SC (08:55)
[2025-03-09] MEDS: Insulin Glargine-YFGN 100 UNIT/ML Pen 20 UNIT SC ×2 (08:55→21:25)
[2025-03-09] MEDS: Linezolid 600 MG Tablet PO ×2 (08:56→21:25)
[2025-03-09] MEDS: Pantoprazole Sodium 40 MG Tablet PO (08:56)
--- NOTE | 2025-03-09 10:13 | PN_ITS ---
Subjective Subjective Patient seen and examined. He had no active complaints and had an uneventful night. His DKA has resolved and he is now on a diet. Review of systems is otherwise negative. Objective Data Objective Data Vital Signs: Vital Signs Temp Pulse Resp BP Pulse Ox O2 Del Method 98.0 F 92 18 114/73 100 Room Air 03/09/25 06:00 03/09/25 09:00 03/09/25 09:00 03/09/25 09:00 03/09/25 09:00 03/09/25 09:00 Oxygen Delivery Method Room Air Weight: 192 lb 3.889 oz Body Mass Index (BMI) 27.6 Intake & Output: Intake and Output for Last 24 Hours 03/07/25 03/08/25 03/09/25 23:59 23:59 23:59 Intake Total 4285.21 / 4285.21 6248.30 / 6248.30 1886.67 / 1886.67 Output Total 2400 / 2400 2800 / 2800 1100 / 1100 Balance 1885.21 / 1885.21 3448.30 / 3448.30 786.67 / 786.67 Lab / Micro Data 03/09/25 04:11 03/09/25 04:11 Labs: Laboratory Results - last 24 hr 03/08/25 10:03: POC Glucose 119 H 03/08/25 11:48: POC Glucose 132 H 03/08/25 12:30: Sodium 140, Potassium 3.8, Chloride 109 H, Carbon Dioxide 18.5 L , Anion Gap 12, BUN 18, Creatinine 1.02, Estim Creat Clear Calc 115.31, Est GFR (MDRD) Non-Af 105, BUN/Creatinine Ratio 17.8, Glucose 150 H, Calcium 8.0 03/08/25 15:37: POC Glucose 264 H 03/08/25 21:12: POC Glucose 317 H 03/09/25 04:11: WBC 7.9, RBC 3.44 L, Hgb 7.7 L, Hct 24.4 L, MCV 70.9 L, MCH 22.4 L, MCHC 31.6 L, RDW Std Deviation 42.6, RDW Coeff of Rabia 16.8 H, Plt Count 302, MPV 8.7, Immature Gran % (Auto) 0.600, Neut % (Auto) 65.2, Lymph % (Auto) 26.7, [place] % (Auto) 5.4, Eos % (Auto) 1.6, Baso % (Auto) 0.5, Absolute Neuts (auto) 5.2, Absolute Lymphs (auto) 2.11, Nucleated RBC % 0, Sodium 132 L, Potassium 3.9, Chloride 101, Carbon Dioxide 19.2 L, Anion Gap 11, BUN 12, Creatinine 0.97, Estim Creat Clear Calc 121.25, Est GFR (MDRD) Non-Af 111, BUN/Creatinine Ratio 11.8, Glucose 333 H, Calcium 8.3, Phosphorus 1.9 L, Magnesium 1.8 03/09/25 07:45: POC Glucose 240 H Micro: Microbiology 03/07/25 19:40 Blood Culture (Wb) - Central Line Blood Culture - Preliminary 03/07/25 19:40 Blood Culture (Wb) - Central Line Blood Culture - Preliminary 03/07/25 17:53 Urine Catheter - Catheter Urine Culture - Preliminary Culture exhibits no growth. 03/07/25 16:56 Mucosa - Nose SARS-CoV-2, Influenza & RSV (PCR) - Final ABG Data ABG results: ABG 03/07/25 16:31 VBG HCO3 3 L Physical Exam Const alert, oriented x3 and no apparent distress General Appearance: cooperative and well developed HEENT normocephalic, head/scalp atraumatic, moist oral mucous membranes and oropharynx normal Neck no lymphadenopathy, supple and no JVD Lymph Lymphatic: no lymphadenopathy noted, no lymphedema noted and lymphedema Resp normal respiratory effort, normal air movement and clear to auscultation bilaterally Cardio regular rate, regular rhythm, S1 normal heart sound, S2 normal heart sound and no murmurs GI normal to inspection, nondistended, normoactive bowel sounds, soft to palpation and non-tender Extremity normal capillary refill, no clubbing, cyanosis or edema and no calf tenderness General Extremity: no tenderness to palpation of joints or extremities Skin General Skin Exam: no breakdown Neuro CN's II-XII intact bilaterally, no focal motor deficits and no sensory deficits noted Motor Exam: strength 5/5 throughout and general weakness Psych thought process normal, cooperative and affect normal Appearance: appropriate Assessment & Plan Assessment/Plan (1) DKA (diabetic ketoacidosis): (2) Acute dehydration: PLAN: Plan #Acute DKA * resolved. Now off insulin drip * on his baseline lantus 20 units bid. * on a carb controlled diet * ISS. Accuchecks ACHS * Patient known to be very noncompliant. * Last A1c from 12/23/2024 was 13. * #Gram positive bacteremia: * Blood cultures x 2 growing gram-positive cocci with speciation pending. * Patient allergic to vancomycin started on p.o. linezolid. * ID consulted. * 2D echo also ordered. * Await recs. * #RADHA: Resolved. Creatinine is down to 0.97 today. #GERD: On PPI DVT prophylaxis; heparin Disposition; transfer out of the ICU to the regular medical floor today # Charges/Coding Visit Charges Inpatient E&M: 62708 Subs Hosp L2
[2025-03-09 11:49] LABS: Bedside Glucose 66 mg/dL (74-106)
[2025-03-09 12:22] LABS: Bedside Glucose 108 mg/dL (74-106)
--- NOTE | 2025-03-09 13:45 | PCM.CONS.GEN ---
Assessment & Plan Assessment/Plan (1) DKA (diabetic ketoacidosis): PLAN: 2 of 2 bcx (+) for GPC. It is possible these are two separate contaminated samples. Overall feeling better. Continue linezolid for now. Will follow, thank you, d/w Dr. Be yesterday HPI Consult Data Date of Consult: 03/09/25 HPI Narrative Reason for Consultation: (+) bcxs HPI Narrative: SHIRA STEPHENSON, is a 24 M with T1DM, multiple admits for DKA, presented 03/07 to ED with two days n/v, unable to take insulin, and progressive altered mental status. Admitted to icu with DKA. Denies fever or chills, no recent infections, no rash. 2 of 2 bcx with GPC, so started on linezolid 03/08. Feeling better today. Full ROS performed and neg except as noted above. [facility] Medical History Medical non-compliance Diabetic ketoacidosis History of venous thromboembolism C. difficile enteritis Chronic anticoagulation History of diabetes mellitus Anticoagulant long-term use Anemia due to chronic illness Eagle grade D esophagitis [place] esophagitis Gastroparesis Recurrent pulmonary embolism AP window (aortopulmonary window) Anxiety Depression DVT (deep venous thrombosis) Hypokalemia Noncompliance with diabetes treatment History of medication noncompliance Severe protein-calorie malnutrition Kidney disease Hypokalemia Non-smoker Asthma Psychosocial problem femur surgery Diabetes mellitus type 1 GERD (gastroesophageal reflux disease) Home Medications ?Medication ?Instructions ?Recorded ?Last Taken ?Type blood sugar diagnostic (OneTouch 02/27/23 Unknown History Verio test strips) flash glucose sensor (FreeStyle 02/27/23 Unknown History Niru 14 Day Sensor kit) pen needle, diabetic 31 gauge x #100 ea 07/10/24 Unknown Rx 1/3 alcohol swabs (BD Alcohol Swabs) 1 pad topical 4X/DAY prior to 02/01/25 Unknown History injections blood-glucose meter (True Metrix 02/01/25 Unknown History Glucose Meter) insulin glargine 100 unit/mL (3 20 unit (0.2 mL) subcut DAILY 02/01/25 Unknown Rx mL) subcutaneous pen (Lantus diabetes #15 mL Solostar U-100 Insulin) insulin lispro 100 unit/mL 10 unit subcut .with meals 02/01/25 Unknown Rx subcutaneous pen (Humalog StephenPen DIABETES 1 day #15 mL (U-100) Insulin) lispro sliding scale diabetes 02/01/25 Unknown History omeprazole 40 mg capsule,delayed 40 mg PO DAILY gerd 02/13/25 Unknown History release potassium chloride 20 mEq 20 meq PO BID #20 tabs 02/15/25 Unknown Rx tablet,extended release potassium, sodium phosphates 280 1 packet PO BID #20 ea 02/15/25 Unknown Rx mg-160 mg-250 mg oral powder packet sodium bicarbonate 650 mg tablet 650 mg PO 2XD #20 tabs 02/15/25 Unknown Rx Allergy/AdvReac Type Severity Reaction Status Date / Time vancomycin Allergy local Verified 03/07/25 15:51 rash/hives to IV site Family History Father Polysubstance overdose Patient father young secondary to OD. Mother Iron deficiency anemia Other Asthma CVA (cerebral vascular accident) Diabetes Hypertension Thyroid disorder Surgical History H/O right knee surgery History of surgery on extremity Hx of knee surgery Social History household members: family housing: apartment Smoking Status: Never smoker alcohol intake: current alcohol intake frequency: a few times a month substance use type: does not use Physical Exam Const alert, oriented x3 and no apparent distress General Appearance: cooperative HEENT normocephalic and head/scalp atraumatic Eyes PERRL and EOMs intact bilaterally Neck supple and No nodes Resp normal air movement and clear to auscultation bilaterally Cardio regular rate and regular rhythm GI soft to palpation, non-tender and non-distended Extremity General Extremity: Negative for edema Skin no rashes or lesions noted Neuro CN's II-XII intact bilaterally Lab / Micro Data Attestation: I reviewed the patient's lab results. 03/09/25 04:11 03/09/25 04:11 Labs: Laboratory Results - last 24 hr 03/08/25 15:37: POC Glucose 264 H 03/08/25 21:12: POC Glucose 317 H 03/09/25 04:11: WBC 7.9, RBC 3.44 L, Hgb 7.7 L, Hct 24.4 L, MCV 70.9 L, MCH 22.4 L, MCHC 31.6 L, RDW Std Deviation 42.6, RDW Coeff of Rabia 16.8 H, Plt Count 302, MPV 8.7, Immature Gran % (Auto) 0.600, Neut % (Auto) 65.2, Lymph % (Auto) 26.7, [place] % (Auto) 5.4, Eos % (Auto) 1.6, Baso % (Auto) 0.5, Absolute Neuts (auto) 5.2, Absolute Lymphs (auto) 2.11, Nucleated RBC % 0, Sodium 132 L, Potassium 3.9, Chloride 101, Carbon Dioxide 19.2 L, Anion Gap 11, BUN 12, Creatinine 0.97, Estim Creat Clear Calc 121.25, Est GFR (MDRD) Non-Af 111, BUN/Creatinine Ratio 11.8, Glucose 333 H, Calcium 8.3, Phosphorus 1.9 L, Magnesium 1.8 03/09/25 07:45: POC Glucose 240 H 03/09/25 11:31: POC Glucose 66 L 03/09/25 12:04: POC Glucose 108 H Micro: Microbiology 03/07/25 19:40 Blood Culture (Wb) - Central Line Blood Culture - Preliminary 03/07/25 19:40 Blood Culture (Wb) - Central Line Blood Culture - Preliminary ABG Data ABG results: ABG 03/07/25 16:31 VBG HCO3 3 L Imaging Radiology Impression Echocardiogram 03/09/25 07:29 Interpretation Summary Mild concentric left ventricular hypertrophy. The LV systolic function is normal. EF is 65 %. Stage 1 diastolic dysfunction. No evidence of endocarditis on this surface ecocardiogram. Recommend RACHAEL for furher evaluation if clinically indicated Ordering Physician: Edilma Dennison Performed By: Ulises Carrera RCS
--- NOTE | 2025-03-09 14:28 | CASEMGMT ---
Readmission Note: Index: 02/13/25-02/15/25. Dx: DKA Current: 03/07/25. Dx: DKA, Dehydration, Medication Noncompliance From the index admission, the pt discharged home with his family with new prescriptions and was to f/u with the PCP. Pt has had multiple readmissions for DKA and has a history of medication noncompliance. VERONA FONTANEZ to pt room at this time. Pt sitting up in the chair and is calm. Pt states that he was able to get his new prescriptions and take his medications as ordered. Pt states that he was not able to f/u with his PCP as he did not have transportation. Regarding the pt's DM, pt states that he has a CBGM with one sensor left. Pt states that he also has a regular BGM with sufficient supplies including lancets, test strips, and ETOH swabs. Pt states that he has 1 jar of test strips left but that he has an outstanding Rx for refills at the pharmacy available. Pt states that he only has one sensor left for his CBGM machine but that he does have a refill order available. Pt states that he was not checking his BS levels as he should because he was too sick. Pt states that he was too nauseous to manage his DM well. Pt states that he has all the equipment he needs to manage his DM. Pt states that he takes insulin shots and that he has enough pen needles. 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 Pt states that he just needs a ride there. Pt states that he uses his insurance for transportation but that, I have to call a month in advance for rides. Pt states that he has mainly been walking to places. SW has talked to the pt about this, see note. Pt states that he plans to return home with his family once he is medically ready and reports feeling safe doing so. Pt again states that he has all of the DM equipment and education that he needs to manage his DM and that he has refills available when needed. Pt denies further questions or concerns at this time. Tavo RIZO RN, CM
[2025-03-09] MEDS: Acetaminophen 325 MG Tablet 650 MG PO (15:46)
[2025-03-09 16:16] LABS: Bedside Glucose 118 mg/dL (74-106)
[2025-03-09] MEDS: 0.9% Saline Lock 10 ML Syringe IV (21:25)
[2025-03-09 22:34] LABS: Bedside Glucose 211 mg/dL (74-106)
[2025-03-10 04:13] VITALS: BP 125/82; PULSE 89; RESP 16; TEMP 36.9; O2SAT 100
[2025-03-10 04:29] LABS: Bedside Glucose 204 mg/dL (74-106)
[2025-03-10 04:42] VITALS: BMI 27.6
[2025-03-10] MEDS: Heparin Injection (Vial) 5,000 UNIT/ML VIAL 5000 UNIT SC (06:36)
[2025-03-10 06:45] LABS: Absolute Lymphocyte Count 1.67 X10^3/uL (0.83-4.51); Absolute Neutrophil Count 1.8 X10^3/uL (2.0-7.7); Basophil# 0.04 X10^3/uL; Eosinophil# 0.11 X10^3/uL; Eosinophils% 2.8 % (0-5); Lymphocyte # 1.67 X10^3/ul (0.83-4.51); Lymphocyte % 42.2 % (19-41); Mean Corp Hgb Conc 30.8 g/dL (32-36); Mean Corpuscular Hgb 22.3 pg (27.0-32.0); Mean Corpuscular Volume 72.4 fL (80-94); Monocyte# 0.31 X10^3/uL; Monocyte% 7.8 % (0-10); NRBC Flagged by Analyzer 0 % (0-5); Neutrophil # 1.82 X10^3/uL (2.7-7.7); Neutrophil % 45.9 % (47-70); Platelet Count 259 K/mm3 (150-450); RBC Distribution Width CV 16.4 % (11.6-14.6); RBC Distribution Width SD 42.5 fl (35.1-43.9); Red Blood Count 3.59 M/mm3 (4.6-6.2)
[2025-03-10 07:03] LABS: Anion Gap 10 (5-15); BUN 11 mg/dL (4-19); BUN/Creat Ratio 14.8 RATIO (10-20); Calcium,Total 8.4 mg/dL (7.6-11.0); Carbon Dioxide 21.3 mmol/L (21.0-32.0); Chloride 104 mmol/L (98-108); Creatinine, Serum 0.73 mg/dL (0.70-1.20); EST Glomerular Filtration Rate 131 (>60); Estimated Creatinine Clearance 161.11 ml/min (50-250); Glucose 195 mg/dL (70-99); Potassium 3.5 mmol/L (3.3-5.1); Sodium Level 135 mmol/L (133-145)
[2025-03-10 07:12] LABS: Bedside Glucose 181 mg/dL (74-106)
[2025-03-10 09:11] VITALS: BP 120/81; PULSE 96; RESP 14; TEMP 36.6; O2SAT 100
[2025-03-10] MEDS: Pantoprazole Sodium 40 MG Tablet PO (09:15)
[2025-03-10] MEDS: Insulin Lispro 100 UNIT/ML INSULN.PEN 15 UNIT SC (09:15)
[2025-03-10] MEDS: Linezolid 600 MG Tablet PO (09:15)
[2025-03-10] MEDS: Insulin Glargine-YFGN 100 UNIT/ML Pen 20 UNIT SC (09:16)
--- NOTE | 2025-03-10 09:47 | PCM.PN.ID ---
Physical Exam Narrative Feeling better, no fever, no n/v/d. Const alert and no apparent distress General Appearance: cooperative Resp normal air movement and clear to auscultation bilaterally Cardio regular rate and regular rhythm GI soft to palpation, non-tender and non-distended Skin no rashes or lesions noted ID ID: Route of nutrition/ use of supplements: [] Nutritional Intake: [] IV Site: [] Youssef Catheter: [] Assessment & Plan Assessment/Plan (1) DKA (diabetic ketoacidosis): PLAN: 2 of 2 bcx (+) for staph epi but with different susceptibility patterns. Suspect these are two separate contaminated samples. Overall feeling better. Ok for d/c home off of abx. Will follow prn
[2025-03-10 11:46] LABS: Bedside Glucose 77 mg/dL (74-106)
--- NOTE | 2025-03-10 12:26 | PCM.DC.SUM ---
Providers Date of Admission: 03/07/25 Date of Discharge: 03/10/25 Primary Care Physician: Dr. Christiano Elise MD Consultations 03/08/25 18:10 Consult: Infectious Disease Routine Consulting Provider: Jose Mcmullen Reason for Consult: Blood culture shows gram-positive cocci in clusters on Gram stain EMERGENT Consult: No Notified: Yes Date Notified: 03/08/25 Time Notified: 18:10 Method of Notification: Text 03/09/25 07:27 Consult: Infectious Disease Routine Consulting Provider: Jose Mcmullen Reason for Consult: gram positive cocci bacteremia EMERGENT Consult: No Notified: Yes Date Notified: 03/09/25 Time Notified: 07:27 Method of Notification: Text Reason For Visit: DKA, DEHYDRATION, MEDICATION NONCOMPLIANCE Diagnosis Discharge Diagnosis (1) DKA (diabetic ketoacidosis): Status: Acute Code(s): E11.10 - Type 2 diabetes mellitus with ketoacidosis without coma Plan #Acute DKA resolved. Now off insulin drip on his baseline lantus 20 units bid. on a carb controlled diet ISS. Accuchecks ACHS Patient known to be very noncompliant. Last A1c from 12/23/2024 was 13. #Gram positive bacteremia: Blood cultures x 2 growing gram-positive cocci with speciation pending. Patient allergic to vancomycin started on p.o. linezolid. ID consulted. 2D echo also ordered. Await recs. #RADHA: Resolved. Creatinine is down to 0.97 today. #GERD: On PPI DVT prophylaxis; heparin Disposition; transfer out of the ICU to the regular medical floor today # Medications at Discharge Home Medications blood sugar diagnostic (OneTouch Verio test strips) 02/27/23 flash glucose sensor (FreeStyle Niru 14 Day Sensor kit) 02/27/23 pen needle, diabetic 31 gauge x 1/3 #100 ea 07/10/24 alcohol swabs (BD Alcohol Swabs) 1 pad topical 4X/DAY prior to injections 02/01/25 blood-glucose meter (True Metrix Glucose Meter) 02/01/25 insulin lispro 100 unit/mL subcutaneous pen (Humalog KwikPen (U-100) Insulin) 10 unit subcut .with meals DIABETES 1 day #15 mL 02/01/25 lispro sliding scale diabetes 02/01/25 omeprazole 40 mg capsule,delayed release 40 mg PO DAILY gerd 02/13/25 potassium chloride 20 mEq tablet,extended release 20 meq PO BID #20 tabs 02/15/25 potassium, sodium phosphates 280 mg-160 mg-250 mg oral powder packet 1 packet PO BID #20 ea 02/15/25 sodium bicarbonate 650 mg tablet 650 mg PO 2XD #20 tabs 02/15/25 insulin glargine 100 unit/mL (3 mL) subcutaneous pen (Lantus Solostar U-100 Insulin) 20 unit (0.2 mL) subcut BIDCM diabetes #15 mL 03/10/25 Hospital Course Operations None Procedures None Summary of Care Provided Minutes Spent on Discharge: 45 Hospital Course: Patient is a 24-year-old male with a past medical history as outlined including type 1 diabetes mellitus with multiple admissions for DKA due to noncompliance, GERD and previous DVT was admitted by the ED on 03/07/2025 with a complaint of nausea and vomiting. He had not taken any insulin since the day before admission on account of the nausea and vomiting. His vomiting was incessant so his grandmother called the EMS and was brought to the hospital. On admission lactic acid was 3.9 and bicarb was 2.5. Potassium was 6.1. He was diagnosed with DKA and hyperkalemia and started on insulin drip. He was admitted to the ICU. He was weaned off of his insulin drip and switched to his baseline Lantus 20 units twice daily and placed on a carb controlled diet. His last A1c from 12/23/2024 was 13. Blood cultures done were positive x 2 samples for Staph epidermidis. He had been started on linezolid because he was allergic to vancomycin. Infectious disease was consulted and thought the positive cultures were due to contaminants and recommended antibiotics be discontinued. Patient was discharged home on 03/10/2025 on Lantus 20 units twice daily. 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 Patient seen and examined prior to discharge. He had multiple normal complaints. He had an uneventful night. Review of systems otherwise negative. Labs and vitals reviewed. Medication reviewed and reconciled. Physical Exam Const alert, oriented x3 and no apparent distress General Appearance: cooperative, comfortable, well kempt and well developed Orientation / Consciousness: awake, oriented to person, oriented to place and oriented to time Exam Limitations: no limitations HEENT normocephalic, head/scalp atraumatic, hearing grossly normal bilaterally, moist oral mucous membranes and oropharynx normal Mouth: oral and palatal mucosa normal Eyes PERRL, EOMs intact bilaterally and conjunctivae normal Neck no lymphadenopathy, supple, no JVD, thyroid normal and no carotid bruits General: trachea midline Lymph Lymphatic: no lymphadenopathy noted, no lymphedema noted and lymphedema Resp normal respiratory effort, normal air movement, no retractions, no use of accessory muscles and clear to auscultation bilaterally Auscultation: Negative for rales, rhonchi or wheezes Cardio regular rate, regular rhythm, S1 normal heart sound, S2 normal heart sound, no murmurs, no rub and no gallops GI normal to inspection, nondistended, normoactive bowel sounds, soft to palpation, non-tender and non-distended Extremity normal capillary refill, no clubbing, cyanosis or edema and no calf tenderness General Extremity: no tenderness to palpation of joints or extremities Skin no rashes or lesions noted General Skin Exam: no breakdown Neuro oriented x3, CN's II-XII intact bilaterally, moves all extremities, no focal motor deficits and no sensory deficits noted Sensorium / Orientation: awake and alert Speech: speech normal Motor Exam: strength 5/5 throughout and general weakness Psych thought process normal, cooperative and affect normal Appearance: appropriate Weight / BMI Weight Weight: 192 lb 7.417 oz Body Mass Index (BMI) 27.6 ABG / Lab / Microbiology Data 03/10/25 06:15 03/10/25 06:15 Laboratory: Laboratory Results - last 24 hr 03/09/25 15:57: POC Glucose 118 H 03/09/25 21:22: POC Glucose 211 H 03/10/25 04:11: POC Glucose 204 H 03/10/25 06:15: WBC 4.0 L, RBC 3.59 L, Hgb 8.0 L, Hct 26.0 L, MCV 72.4 L, MCH 22.3 L, MCHC 30.8 L, RDW Std Deviation 42.5, RDW Coeff of Rabia 16.4 H, Plt Count 259, MPV 9.0, Immature Gran % (Auto) 0.300, Neut % (Auto) 45.9 L, Lymph % (Auto) 42.2 H, [place] % (Auto) 7.8, Eos % (Auto) 2.8, Baso % (Auto) 1.0, Absolute Neuts (auto) 1.8 L, Absolute Lymphs (auto) 1.67, Nucleated RBC % 0, Sodium 135, Potassium 3.5, Chloride 104, Carbon Dioxide 21.3, Anion Gap 10, BUN 11, Creatinine 0.73, Estim Creat Clear Calc 161.11, Est GFR (MDRD) Non-Af 131, BUN/Creatinine Ratio 14.8, Glucose 195 H, Calcium 8.4 03/10/25 06:35: POC Glucose 181 H 03/10/25 11:28: POC Glucose 77 Microbiology: Microbiology 03/07/25 19:40 Blood Culture (Wb) - Central Line Blood Culture - Preliminary Staphylococcus epidermidis 03/07/25 19:40 Blood Culture (Wb) - Central Line Blood Culture - Preliminary Staphylococcus epidermidis 03/07/25 17:53 Urine Catheter - Catheter Urine Culture - Final Culture exhibits no growth. 03/07/25 16:56 Mucosa - Nose SARS-CoV-2, Influenza & RSV (PCR) - Final D/C Instructions Discharge Diet: Low fat / Low cholesterol Discharge Activity: Return to Normal Activity Weight Bearing Status: Weight bearing as tolerated Call your doctor if you observe: Fever of 101 or Higher, Shortness of breath, Dizziness, Swelling in the ankles and Chest pain DC O2, CPAP, BIPAP Needs Home O2 Discharge instructions: No DC home with Oxygen: No Meaningful Use Info Meaningful Use Meaningful Use Diagnoses (Choose all that apply): None applicable Ischemic Stroke Statin Dosing Therapy Reference: STATIN DOSE THERAPY REFERENCE: * Patients > 75 years receive moderate or high dose statin therapy. * Patients 75 years or YOUNGER should receive HIGH intensity statin dose unless contraindicated. You will be required to document reason for non-treatment if statin daily dose does not meet guidelines. HIGH DOSE STATIN THERAPY DAILY Atorvastatin > than or = to 40 mg Rosuvastatin > than or = to 20 mg Amlodipine + Atorvastatin > than or = to 2.5/40 mg Ezetimibe + Simvastatin 10/80 mg Simvastatin 80mg Discharge Plan Admission Admit Date/Time: 03/07/25 19:01 Primary Reason for Your Visit: DKA Attending Provider: Edilma Dennison Primary Care Provider: Christiano Elise Consulting Providers: Radha Randolph; Jazmyne Be,Jose Instructions Patient Instructions: Ketoacidosis Ch Discharge Orders/Prescriptions Prescriptions: Continued (DME) OneTouch Verio test strips Strip See Rx Instructions .ROUTE .MEDSUPPLY Rx Instructions: 4x/day (DME) FreeStyle Niru 14 Day Sensor Kit See Rx Instructions .ROUTE .MEDSUPPLY Rx Instructions: As directed (DME) pen needle, diabetic 31 gauge x 1/3 needle See Rx Instructions .Route Qty: 100 3RF Rx Instructions: As directed alcohol swabs [BD Alcohol Swabs] Pads, Medicated 1 pad topical 4X/DAY (DME) blood-glucose meter [True Metrix Glucose Meter] Misc MISCELLANEOUS UD lispro sliding scale insulin lispro [Humalog KwikPen Insulin] 100 unit/mL insulin pen 10 unit subcut .with meals 1 Days Qty: 15 5RF Protocol: 5. Sliding Scale Insulin High Dosing Condition: 150-209 mg/dl = 3 units Condition: 210-259 mg/dl = 6 units Condition: 260-324 mg/dl = 9 units Condition: 325-374 mg/dl = 12 units Condition: 375-409 mg/dl = 14 units Condition: 410-449 mg/dl = 16 units Condition: Greater than 449 call physician Protocol Text: Suggested for: - Patients on Total Daily Insulin Dose of 81-120 units - Very insulin resistant patients HIGH DOSING ALGORITHM Rx Instructions: 3 times daily with meals omeprazole 40 mg capsule,delayed release(DR/EC) 40 mg PO DAILY sodium bicarbonate 650 mg Tablet 650 mg PO 2XD Qty: 20 0RF potassium, sodium phosphates 280-160-250 mg Powder In Packet 1 packet PO BID Qty: 20 0RF potassium chloride 20 mEq tablet extended release 20 meq PO BID Qty: 20 0RF Changed insulin glargine [Lantus Solostar U-100 Insulin] 100 unit/mL (3 mL) insulin pen 20 unit subcut BIDCM Qty: 15 2RF Rx Instructions: Hold if glucose less than 130 mg/dl Referrals / Follow Up: Christiano Elise MD [Primary Care Provider] - 03/17/25 2:40 pm Lauro Galindo MD [Med Staff - Courtesy Staff] - Within 1 Month (see to establish care for diabetes mellitus) Disposition Disposition (needs filled in before D/C Order can be placed): Home, Self Care Charges/Coding Visit Charges Inpatient E&M: 30253 Disch Hosp >30min
--- NOTE | 2025-03-10 13:20 | PHA.DC.MR.R ---
Pharmacy [place] Med Reconciliation Pharmacy Service has performed discharge medication reconciliation for this patient. The patient's discharge medication list was reviewed for discrepancies and discrepancies were resolved. Medications at Discharge Home Medications blood sugar diagnostic (OneTouch Verio test strips) 02/27/23 flash glucose sensor (FreeStyle Niru 14 Day Sensor kit) 02/27/23 pen needle, diabetic 31 gauge x 1/3 #100 ea 07/10/24 alcohol swabs (BD Alcohol Swabs) 1 pad topical 4X/DAY prior to injections 02/01/25 blood-glucose meter (True Metrix Glucose Meter) 02/01/25 insulin lispro 100 unit/mL subcutaneous pen (Humalog KwikPen (U-100) Insulin) 10 unit subcut .with meals DIABETES 1 day #15 mL 02/01/25 lispro sliding scale diabetes 02/01/25 omeprazole 40 mg capsule,delayed release 40 mg PO DAILY gerd 02/13/25 potassium chloride 20 mEq tablet,extended release 20 meq PO BID #20 tabs 02/15/25 potassium, sodium phosphates 280 mg-160 mg-250 mg oral powder packet 1 packet PO BID #20 ea 02/15/25 sodium bicarbonate 650 mg tablet 650 mg PO 2XD #20 tabs 02/15/25 insulin glargine 100 unit/mL (3 mL) subcutaneous pen (Lantus Solostar U-100 Insulin) 20 unit (0.2 mL) subcut BIDCM diabetes #15 mL 03/10/25
--- NOTE | 2025-03-10 15:18 | CASEMGMT ---
Social Work SW arranged transportation with [facility] for March 17 2:[address] Elise. Information entered on discharge plan. Pt notified. [facility] to pick pt up at pt house between 1:50 and 2:20 to take to appointment. (confirmation #[id number]) They will bring pt home after appointment around 3:40 (confirmation #[id number]). Phone number for [facility] ([phone]) BRENT Frank
--- NOTE | 2025-03-10 15:40 | CASEMGMT ---
Patient has order for discharge. VERONA FONTANEZ in to discuss needs at discharge. VERONA FONTANEZ updated patient regarding PCP follow-up appt and transportation for appt. Patient states he received notification on his phone and saved it to his calendar. VERONA FONTANEZ updated [facility] Patient requesting inhaler at discharge. VERONA FONTANEZ updated patient that since he was not order inhaler while hospitalized, hospitalist may not prescribed it and may need to follow-up with PCP for inhaler, patient voiced understanding. Patient denies further needs at discharge. Patient had no further questions or concerns at this time. VERONA FONTANEZ updated patient's nurse regarding request for inhaler at discharge.
[2025-03-10 16:17] VITALS: BP 116/88; PULSE 80; RESP 14; TEMP 36.7; O2SAT 100
== END 2025-03-10 16:33 | disposition home or self-care (01) | DRG 420 ==
LOC: ED 18:11 → ICU 19:05 → PCU 03-09 12:16
PROVIDERS: Internal Medicine; Nurse Practitioner; Admitting Provider Internal Medicine; Emergency Provider Emergency Medicine; PCP Family Medicine; Visit Provider Student in an Organized Health Care Education/Training Program
DX: E10.10 Type 1 diabetes mellitus with ketoacidosis without coma (principal); R78.81 Bacteremia; N17.9 Acute kidney failure, unspecified; K21.9 Gastro-esophageal reflux disease without esophagitis; E87.5 Hyperkalemia; B96.89 Other specified bacterial agents as the cause of diseases classified elsewhere; Z86.718 Personal history of other venous thrombosis and embolism; Z86.711 Personal history of pulmonary embolism; Z91.148 Patient's other noncompliance with medication regimen for other reason
CPT/HCPCS: 36415; 36600; 51702; 71045; 80048; 80053; 81001; 82010; 82803; 82962; 83605; 83690; 83735; 84100; 85025; 85610; 85730; 87040; 87086; 87186; 87631; 93005; 93306; 99285; P9047; Q9957; A4216; J0612; J2405

== ENCOUNTER 2025-03-23 14:36 | Emergency (ER) | payer MEDICAID, SELFPAY ==
[2025-03-23 14:37] VITALS: TEMP 36.6
[2025-03-23 14:39] VITALS: BP 163/131; BP 172/88; BP 82/12; PULSE 0; RESP 17; RESP 19; RESP 20; TEMP 36.4; O2SAT 100; O2SAT 83
--- NOTE | 2025-03-23 15:21 | EDS_ITS ---
HPI History of Present Illness Chief Complaint: CPR Informant: family and EMS Narrative Narrative: 24-year-old male with multiple medical problems arriving to the emergency department in cardiac arrest. EMS reports that they were called to the house for possible seizure. Upon their arrival it appeared the patient was seizing and went into cardiac arrest. EMS notes CPR as well as 5 rounds of epinephrine. They do note that at 1 point they did defibrillate. Upon arrival into the emergency room CPR was being performed using mechanical device. He has a left humeral IO. He is receiving bagged respirations through endotracheal tube. Grandmother tells me after resuscitation that he has been in his room for 3 days vomiting. She has tried to encourage him to come to the hospital but he refused. Prehospital EMS blood sugar was above 500 PFSH [facility] Medical History History of medication noncompliance DKA (diabetic ketoacidosis) Medical non-compliance Diabetic ketoacidosis History of venous thromboembolism C. difficile enteritis Chronic anticoagulation History of diabetes mellitus Anticoagulant long-term use Anemia due to chronic illness [place] grade D esophagitis [place]a esophagitis Gastroparesis Recurrent pulmonary embolism AP window (aortopulmonary window) Anxiety Depression DVT (deep venous thrombosis) Hypokalemia Noncompliance with diabetes treatment History of medication noncompliance Severe protein-calorie malnutrition Kidney disease Hypokalemia Non-smoker Asthma Psychosocial problem femur surgery Diabetes mellitus type 1 GERD (gastroesophageal reflux disease) Home Medications ?Medication ?Instructions ?Recorded ?Last Taken ?Type blood sugar diagnostic (OneTouch 02/27/23 Unknown His tory Verio test strips) flash glucose sensor (FreeStyle 02/27/23 Unknown Hist ory Niru 14 Day Sensor kit) pen needle, diabetic 31 gauge x #100 ea 07/10/24 Unkno wn Rx 1/3 alcohol swabs (BD Alcohol Swabs) 1 pad topical 4X/DAY prior to 02/01/25 Unknown History injections blood-glucose meter (True Metrix 02/01/25 Unknown His tory Glucose Meter) insulin lispro 100 unit/mL 10 unit subcut .with meals 02/01/25 Unknown Rx subcutaneous pen (Humalog KwikPen DIABETES 1 day #15 m L (U-100) Insulin) lispro sliding scale diabetes 02/01/25 Unknown Hi story omeprazole 40 mg capsule,delayed 40 mg PO DAILY gerd 0 02/13/25 Unknown History release potassium chloride 20 mEq 20 meq PO BID #20 tabs 02/15 Unknown Rx tablet,extended release potassium, sodium phosphates 280 1 packet PO BID #20 e a 02/15/25 Unknown Rx mg-160 mg-250 mg oral powder packet sodium bicarbonate 650 mg tablet 650 mg PO 2XD #20 tab s 02/15/25 Unknown Rx insulin glargine 100 unit/mL (3 20 unit (0.2 mL) subcu t BIDCM 03/10/25 Unknown Rx mL) subcutaneous pen (Lantus diabetes #15 mL Solostar U-100 Insulin) Allergy/AdvReac Type Severity Reaction Status Date / Time vancomycin Allergy local Verified 03/23/25 14:40 rash/hives to IV site Family History Father Polysubstance overdose Patient father young secondary to OD. Mother Iron deficiency anemia Other Asthma CVA (cerebral vascular accident) Diabetes Hypertension Thyroid disorder Surgical History H/O right knee surgery History of surgery on extremity Hx of knee surgery Social History household members: family housing: apartment Smoking Status: Never smoker alcohol intake: current alcohol intake frequency: a few times a month substance use type: does not use ROS ROS ED Review of Systems ROS Unobtainable: due to mental status EXAM Physical Exam Const Vital Signs: 03/23/25 14:37 03/23/25 14:40 Temperature 98 F Temperature Source Temporal Respiratory Pattern Apnea Positive cachectic Constitutional Narrative: Actively receiving CPR General Appearance ED: cachectic and pallor Nutritional Appearance: cachectic HEENT normocephalic and cyanosis of lips/distal nose; Negative for trauma Eyes Eyes Narrative: Pupils are fixed at 4 mm bilaterally Cardio Cardio Narrative: No visible cardiac activity on ultrasound no palpable pulse disorganized V-fib like pattern on monitor GI GI Narrative: Soft scaphoid abdomen Neuro Neuro Narrative: Unresponsive Skin General Skin Exam: pallor MDM MDM MDM Narrative Medical decision making narrative: Differential diagnosis includes but not limited to DKA metabolic acidosis cardiac arrest cardiac dysrhythmia pulmonary embolism pneumonia pneumothorax electrolyte abnormalities CPR was continued. Multiple rounds of epinephrine sodium bicarbonate calcium chloride were given. At 1 point we did defibrillate for what appeared to be ventricular tachycardia. However despite multiple rounds of ACLS there is no cardiac activity noted on bedside ultrasound no palpable pulse and no organized cardiac electrical activity. Patient was pronounced at 1456. History & Record Review Discussion w/independent historian: EMS personnel, Family and Other Additional record(s) reviewed:: Prior ED visit and Prior labs Discharge Plan Triage Chief Complaint: CPR ED Provider: Clemente Moran Dx/Rx/DC Orders Clinical Impression: Cardiac arrest, Type 1 diabetes mellitus Prescriptions: No Action (DME) OneTouch Verio test strips Strip See Rx Instructions .ROUTE .MEDSUPPLY Rx Instructions: 4x/day (DME) FreeStyle Niru 14 Day Sensor Kit See Rx Instructions .ROUTE .MEDSUPPLY Rx Instructions: As directed (DME) pen needle, diabetic 31 gauge x 1/3 needle See Rx Instructions .Route Qty: 100 3RF Rx Instructions: As directed insulin glargine [Lantus Solostar U-100 Insulin] 100 unit/mL (3 mL) insulin pen 20 unit subcut BIDCM Qty: 15 2RF Rx Instructions: Hold if glucose less than 130 mg/dl alcohol swabs [BD Alcohol Swabs] Pads, Medicated 1 pad topical 4X/DAY (DME) blood-glucose meter [True Metrix Glucose Meter] Misc MISCELLANEOUS UD lispro sliding scale insulin lispro [Humalog KwikPen Insulin] 100 unit/mL insulin pen 10 unit subcut .with meals 1 Days Qty: 15 5RF Protocol: 5. Sliding Scale Insulin High Dosing Condition: 150-209 mg/dl = 3 units Condition: 210-259 mg/dl = 6 units Condition: 260-324 mg/dl = 9 units Condition: 325-374 mg/dl = 12 units Condition: 375-409 mg/dl = 14 units Condition: 410-449 mg/dl = 16 units Condition: Greater than 449 call physician Protocol Text: Suggested for: - Patients on Total Daily Insulin Dose of 81-120 units - Very insulin resistant patients HIGH DOSING ALGORITHM Rx Instructions: 3 times daily with meals omeprazole 40 mg capsule,delayed release(DR/EC) 40 mg PO DAILY sodium bicarbonate 650 mg Tablet 650 mg PO 2XD Qty: 20 0RF potassium, sodium phosphates 280-160-250 mg Powder In Packet 1 packet PO BID Qty: 20 0RF potassium chloride 20 mEq tablet extended release 20 meq PO BID Qty: 20 0RF Primary Care Provider: Christiano Elise Referrals: Christiano Elise MD [Primary Care Provider] - Print Language: Romanian Disposition Disposition:
--- NOTE | 2025-03-23 15:36 | ED.RN ---
time of 1456, pronounced by dr. Moran. ultrasound at bedside to confirm no cardiac activity. no femoral or carotid pulse.
--- NOTE | 2025-03-23 16:08 | CHAPLAIN ---
Type of Pastoral Visit ___ Initial Visit ___ Follow-up Visit ___ On-call Visit ___ General Patient Visit ___ Spiritual Assessment ___ Family Conference ___ Bereavement ___ Rapid Response _x__ Code Blue ___ Other (describe below) Pastoral Care Referral From ___ Patient ___ Family ___ Nurse ___ Physician ___ Pulmonary Care Nurse ___ Window Shade Ring Coverer _x__ Other (describe below) Sacrament/Intervention _x__ Active listening ___ Anointing ___ Rastafari _x__ Bereavement ___ Communion _x__ Lizbeth exploration ___ _x__ Life review _x__ Prayer ___ Reconciliation ___ Sacrament of Sick _x__ Supportive presence ___ Wedding ___ Other (describe below) Pastoral Comments responded to code blue in the ED and was present when patient arrived; pt was not breathing and was not revived while being treated in the squad and ED; family members began coming into the hospital and were met by this furnace operator who escorted them to see the doctor make pronouncement and then into the patient's room to see him; grief support and ongoing presence given; prayer was given as family gathered; grandmother is connected to a scientologist but did not ask for her car restorer at this time; SW was also present and gave support;
--- NOTE | 2025-03-23 17:10 | CM.ED ---
Social work Reason for referral: code blue SW responded to the code blue. When SW arrived, patient was undergoing CPR and patient's family had not arrived yet. [facility] Camera Mechanic Ray responded as well and was out in triage waiting from patient's family's arrival. When patient's family arrived, patient's time of had been called. SW provided emotional support, active listening, and supportive presence as needed. SW provided grief support as necessary and gave the patient's family space and time to grieve. SW available for future support as needed. Jodi Hendricks, SYSTEM SUPPORT ADMINISTRATOR, STAMP PRESS OPERATOR
[2025-03-23 18:44] VITALS: BP 0000/0; PULSE 0; RESP 0; TEMP 36.6; O2SAT 0
== END 2025-03-23 18:46 ==
PROVIDERS: Emergency Provider Emergency Medicine; PCP Family Medicine; Visit Provider Emergency Medicine
DX: I46.9 Cardiac arrest, cause unspecified (principal); E10.43 Type 1 diabetes mellitus with diabetic autonomic (poly)neuropathy; Z86.718 Personal history of other venous thrombosis and embolism
CPT/HCPCS: 92950; 99283; A4216